=== PATIENT | male | born 1955 | race Caucasian/White ===

== ENCOUNTER → 2017-10-09 08:17 | Outpatient (CLI) | payer MEDICAID, SELFPAY ==
--- NOTE | 2017-10-09 08:26 | CT_ITS ---
STUDY: CT BRAIN WITHOUT CONTRAST REASON FOR EXAM: Male, 62 years old. CVA RADIATION DOSAGE (If Supplied By Facility): CTDIvol = ( 44.99 ) mGy, DLP = ( 779.24 ) mGycm TECHNIQUE: Transaxial CT imaging of the brain was performed without administration of intravenous contrast material. Individualized dose optimization techniques were used for this CT. COMPARISON: MRI dated 06/24/2016. Chest CT dated 06/23/2016. FINDINGS: There is a large left infarct involving the frontal, temporal and parietal lobes. This is new when compared with 06/23/2016 and appears subacute to chronic in nature. There is no acute infarct. There is no acute bleed. There are stable chronic ischemic and atrophic changes. The ventricles are normal in configuration. There is no hydrocephalus. The visualized paranasal sinuses are clear. The mastoid air cells are well aerated. There is no skull fracture. CT/Brain/Head without Contrast IMPRESSION: Large left sided infarct involving the frontal temporal and parietal lobes. This is new when compared with 06/23/2016 and appears subacute to chronic in nature. No acute infarct. No acute bleed. Stable chronic ischemic and atrophic changes. N.B. : , Covering Physician, confirmed on 10/10/2017 15:59:32 (ET) that the referring physician received the results and did not require a verbal consultation. Electronically Signed: Surya Aiken, at 18:23 EST Tel , Service support , N.B. : , Covering Physician, confirmed on 10/10/2017 15:59:32 (ET) that the referring physician received the results and did not require a verbal consultation.
== END ==
PROVIDERS: Family Provider Family Medicine; PCP Family Medicine
DX: I70.8 Atherosclerosis of other arteries (principal)
CPT/HCPCS: 70450

== ENCOUNTER → 2017-12-19 12:46 | Outpatient (CLI) | payer MEDICAID, SELFPAY ==
--- NOTE | 2017-12-19 12:52 | ADU_ITS ---
Reason For Study: PVD Right Velocities Left Velocities Common Femoral Artery, dist = 156 cm./sec. Common Femoral Artery, dist = 102 cm./sec. Supf Femoral Artery, prox = 384 cm./sec. Supf. Femoral Artery, prox = 60.5 cm./sec. Unable to demonstrate flow in mid and distal SFA.Supf. Femoral Artery, mid = 93.5 cm./sec. Profunda Femoral Artery = 203 cm./sec. Supf. Femoral Artery, dist = 38.5 cm./sec. Popliteal Artery, mid = 183 cm./sec. Profunda Femoral Artery = 116 cm./sec. Post. Tibial Artery, mid = 46.2 cm./sec. Popliteal Artery, mid = 33.0 cm./sec. Post. Tibial Artery, dist = 32.4 cm./sec. Post. Tibial Artery, prox = 32.2 cm./sec. Peroneal Artery,dist = 15.7 cm./sec. Post Tibial Artery, mid = 32.2 cm./sec. Unable to demonstrate flow in the DION. Post Tibial Artery, dist. = 33.8 cm./sec. Peroneal Artery, mid = 29.1 cm./sec. Peroneal Artery,dist. = 18.1 cm./sec. Ant.Tibial Artery, prox = 18.1 cm./sec. Ant Tibial Artery, mid = 16.5 cm./sec. Ant. Tibial Artery, distal = 19.6 cm./sec. Procedure The exam was diagnostic. Exam performed in department. Interpretation Summary Elevated velocities and flow turbulence are noted in the proximal right superficial femoral artery, indicative of hemodynamically significant stenosis. Flow could not be visualized in the right mid- and distal superficial femoral artery, suggesting arterial occlusion. The right popliteal artery and profunda femoris artery appear patent, with relatively normal flow. Diminished flow and monophasic waveforms are noted in the right posterior tibial artery and peroneal artery, consistent with [id number] arterial occlusive disease. Flow could not be demonstrated in the right anterior tibial artery, suggesting arterial occlusion. Markedly diminished flow and monophasic waveforms are noted at all levels in the left lower extremity, consistent with [id number] arterial occlusive disease, and suggestive of arterial inflow disease in the left lower extremity. Ordering Physician: Benita Rogers Referring Physician: DOCTOR, OUT OF [place]OWN Performed By: Teto Adams RVT
== END ==
PROVIDERS: Family Provider Family Medicine; PCP Family Medicine
DX: I73.9 Peripheral vascular disease, unspecified (principal)
CPT/HCPCS: 93925

== ENCOUNTER 2018-04-14 15:30 | Emergency (ER) | payer MEDICAID, SELFPAY ==
[2018-04-14 15:31] VITALS: BP 157/67; PULSE 52; RESP 16; TEMP 37; O2SAT 93; BMI 28.8
[2018-04-14 16:36] VITALS: BP 151/82; PULSE 53; RESP 20; O2SAT 93
--- NOTE | 2018-04-14 16:51 | ED.DCSUM_ITS ---
- ER Visit Summary Date of Service: 04/14/18 Chief Complaint: High blood pressure History of Present Illness: The patient is a [address] Denzel Mcdaniels and Dr. Olvera. reports that he had his amlodipine decreased from 10 mg to 5 mg a day. Today was his first day of this. His blood pressure is usually 127 systolic and today it has been 157 systolic. reports that really the only thing that is different than usual today otherwise that he seems more tired than usual. She does report that he has had a cough for a few weeks. No fever or difficulty breathing. does report that the cough is barky in nature. Patient is difficult to communicate with as he has a history of a stroke with residual expressive aphasia. Physical Examination: Vitals: Stable. Afebrile. General: Well-nourished and well-developed. Head: Normocephalic atraumatic. Neck: Supple, no lymphadenopathy. No JVD. Nontender. Cardiovascular: Regular rate and rhythm. No murmurs. Respiratory: No respiratory distress. Clear to auscultation bilaterally. Abdominal: Soft, nontender, nondistended, normal bowel sounds. No guarding, rebound, or peritoneal signs. Back: Nontender. Extremities: Nontender, no edema. Skin: Normal color, no rash. Psych: Normal affect. Test Results: , daughter, and patient refused labs, x-ray, or CT. Emergency Department Course and Treatment: Had a prolonged discussion with the patient and family that the likely etiology of his increased blood pressures to decreasing his amlodipine. They do not want any further evaluation of this undertaken. I also discussed with the patient and his the fact that he has stridor with his cough is indicative that he may have tracheal stenosis following his tracheostomy last year. Treatment Plan: Patient will be instructed to increase his amlodipine back up to his prior dose. Follow-up Dr. Olvera in 1-2 days if his blood pressure is not controlled. I have also suggested they follow-up with Dr. Ellis within 1- 2 weeks for possible bronchoscopy to check for tracheal stenosis. In the meantime he will be given a dose of dexamethasone p.o. Return to the emergency department for any worsening symptoms. Disposition: To home in improved and stable condition. Impression: 1. URI with stridor. 2. Hypertension. This note was generated with Dragon dictation software. It may contain incorrect words, spelling, and punctuation that were not noted in review of the chart prior to signing ED Disposition - Plan for ED Patient: Chief Complaint: Hypertension Instructions: How Your Lungs Work Referrals: Trip Ellis MD [STAFF PHYSICIAN] - 1-2 Weeks
[2018-04-14 17:24] VITALS: PULSE 54; RESP 20; O2SAT 93
== END 2018-04-14 17:25 | disposition home or self-care (01) ==
LOC: ED 17:09
PROVIDERS: Emergency Provider Emergency Medicine; Family Provider Family Medicine; PCP Family Medicine
DX: J06.9 Acute upper respiratory infection, unspecified (principal); R06.1 Stridor; I10 Essential (primary) hypertension; I63.9 Cerebral infarction, unspecified; I69.320 Aphasia following cerebral infarction; I25.10 Atherosclerotic heart disease of native coronary artery without angina pectoris; Z86.73 Personal history of transient ischemic attack (TIA), and cerebral infarction without residual deficits
CPT/HCPCS: 92507; 99283

== ENCOUNTER 2018-04-14 16:00 | Outpatient (RCR) | payer MEDICAID, SELFPAY ==
--- NOTE | 2017-07-03 18:30 | HP.PTEVAL_ITS ---
Patient's Visit Information ROBERTA ZEE is a 61 year old M referred to Physical Therapy by Conrad Arroyo with a diagnosis of CVA. Date of Evaluation: 07/01/17 Physical Therapist: Myron Gillette - Visit Plan Frequency: 2x /Week Duration: 4-6 Weeks Plan: Start with BLE strenthening/coordination. Add in gait retraining with either hemiwalking or stroke walker. Static standing with terminal knee ext and increased wt. shift to R side. Work on reducing flexor synergy with mobility to increase gait pattern. - Subjective Subjective: Pt. is here today for his initial evaluation with diagnosis of CVA. He is a plesant 61 y.o. male who suffered a 10/31/16 of L MCA after having coronary bypass the day prior. Pt. was on [facility] rehab unit for ~2 months where he was able to ambulate with hemiwalker ~150-200ft. with CGA. Pt. was DC from rehab to a residential facility where his spouse reports he declined. He ultimately was taken home after another 1-2 months. He lives at home with his spouse and receives 3-4 hours a day for in home nursing assistance. He has expressive aphasia limiting his ability to comunicate with PT, but was able to fill in gaps. is concerned about pt's limited mobility, difficulty transfers, limited walking and overall decline. Pt. denies pain, denies dizziness, and denies doouble vision. 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 Pt. and spouse report he is able to transfer with assistance. Spouse does bathing for pt. He does have R sided hemiplegia with RUE more effected than R LE. Pt. just recieved resting hand splint this date. Pt. and spouse are hopeful to increase overall mobility to increase independence in home and community. - Objective POSTURE: Pt. has slouched posture, fwrd shoulder, RUE flaccid at side, no sulcus sign noted. Pt. has increased wt. shift to R side with trunk correction. Pt. is able to sit without assistance. PALPATION: Pt. has no pain with palpation throughout bilateral LEs. Pt. does wear an AFO on RLE(rigid). Pt. has increased tone noted throughout RUE. NEUROLOGICAL: Pt. has decreased sensation throughout RLE, normal sensation to LLE. Pt. has decreased 1+DTR of achiles and patella on RLE. 2+ on LLE same tendons. Pt. is unable to rise on heels or toes. ROM: RLE- DF neutral, PF 54deg; knee- 0-10-120deg., R hip- flexion 120deg, abd 45, ext 6deg. LLE- ankle with in normal limits, knee 0-0-120deg. HIp with in normal limits- tight HS noted. MMT- RLE- ankle- PF 4/5, DF 2-/5; knee- ext 3 /5, flexion 3+/5; hip- 4/5, abd 4/5, ext 4-/5. LLE- ankle- DF 5/5, PF 5/5; knee - ext 4+/5, flexion 4+/5; hip- flexion 4/5, abd 4/5, ext 4/5. GAIT: Pt. requires use of AD to complete. Pt. ambulated 1x28' and 1x18' with kinza walker. Pt. has high levels of difficulty advancing RLE, he has limited heel strike an limited ability to maintain flat foot positioning in stance phases. Pt. required modA to complete throughout. SPECIAL TESTING: stage 4 LE on Chedoke- Huber stroke scale. 5 rep sit to stand test- with RU 45seg with CGA to maintain stability - Balance Scores Tinetti Balance Score: 5 Tinetti Gait Score: 3 Tinetti Balance & Gait Score: 8 - Goals Goal 1:: Pt. to be I with HEP. Goal Time Frame: 4-6 Weeks Goal 2:: Pt. to have increased BLE strength by 1/2 grade to increase functional mobility. Goal Time Frame: 4-6 Weeks Goal 3:: Pt. to complete all transfers with least restrictive device with GABRIELE allowing for increased independence in home. Goal Time Frame: 4-6 Weeks Goal 4:: Pt. to ambulate 200ft. with least restrictive device with JERRY allowing for increased safety in home and community. Goal Time Frame: 4-6 Weeks Goal 5:: Pt. to completed all bed mobility GABRIELE with out LOB allowing for increased mobility in home. Goal Time Frame: 4-6 Weeks Goal 6:: Pt. to have increased score on Tinetti to 14/28 indicating reduced risk for falls. Goal Time Frame: 4-6 Weeks - Rehabilitation Potential Physical Therapy Diagnosis: Pt. has signs and symptoms of general debility secondary to CVA. He has synergist motions of RLE with standing, flexion based. Pt. has difficulty with transfers, gait, and balance. He also has decreased BLE strength and coordination. He also presents with RUE weakness and expressive aphasia with OT and ST will be addressive respectively. He would benefit from PT to address above physicial limitations. Rehabilitation Potential: Fair - Anticipated Interventions Patient/Client Instruction: Educate patient on: Condition, Plan of Care, Risk Factors, Benefits of Fitness Program For the Purpose of:: To improve safety, To improve health and function, To foster healthy habits, To improve decision making, To facilitate caregiver knowledge, To improve self management, To prevent re-injury, To improve ability to perform tasks related to life management, To improve tolerance to ADL's Therapeutic Exercise to Include: Strength training, Power training, Endurance training, Balance training, Coordination, Agility training, Body mechanics, Postural training, Flexibilty training, Gait and locomotor training, Passive ROM , Active ROM, Dynamic Lumbar Stabilization Thank you for the opportunity to evaluate your patient. For Medicare and Medicare HMO plans, please review the plan of care and approve it. It will need to be FAXED BACK to us at [phone] for Medicare purposes. Please let me know if there are questions or concerns regarding this plan of care. Physician Signature: Date:
--- NOTE | 2017-07-08 17:48 | HP.SP.AD ---
History - History Date of Eval: 07/05/17 Date of Onset of Diagnosis: 10/31/16 Previous speech therapy: Yes Other Relevant Medical History/Diagnoses/Surgery: 10/30/16 the patient underwent coronary artery bypass graft at [facility]. 10/31/16 he suffered a left MCA distribution infarct complicated by respiratory failure. Hospitalization was prolonged requiring tracheostomy and PEG tube placement followed by LTAC placement. Therapies were initiated and the patient improved to transfer to inpatient rehab at [facility] on 12/21/16. His tracheostomy and PEG tube were subsequently removed and the pt was discharged to a halfway 02/22/17. He is now living at home with his . Smoking Status: Never smoker Hx Smoking: Yes Hx Tobacco Use: Yes - jun 2016 Hx Smoking Exposure: Yes - Pain Is pain an issue with your current prescribed condition?: No Patient Allergies - Allergies Allergies lisinopril Allergy (Verified 12/21/16 18:49) Unknown Objective Cog/Ling/Com - Test Administered Ghoknazpv-Jahjgtoywi-Dhcyhkfbtforj Assessment Administered: Yes Rfoyddyop-Twnirfavvg-Qlgzpchlsjliw Assessment: Cognitive Linguistic skills were evaluated using patient/family interview, skilled observation and informal evaluation through tasks completed by the patient. - Orientation Orientation: Person, Place - Identification Body parts/objects: Mild - Answer Yes/No Questions Simple: Moderate Complex: Severe - Follows Commands 1 Step: Moderate 2 Step: Severe Complex: Severe - Automatic Sequences Automatic Sequences: WFL, Mild - Repetition Words: WFL, Mild Sentences: Moderate - Naming Responsive naming: Moderate Naming in categories: Severe - Reading Comprehension Words: Moderate, Severe - Oral Reading Words: Moderate, Severe - Cognitive Linguistic Supervision/Saftey Awareness of deficits: Moderate Being left home alone: Moderate, Severe Managing medications: Severe Managing finances: Severe Cognitive Linguistic Comments - Comments Summary The patient presents with moderate-severe cognitive-linguistic deficits following October, CVA, characterized by severe expressive aphasia and mild-moderate receptive aphasia. The patient was able to complete automatic and phrase completion tasks with near independence, though confrontation naming was significantly impaired (0/3 independently). He did respond to initial phonemic cues and was able to imitate single words with some labial groping observed. Basic yes/no questions (0/4 indep) were impaired, with the patient typically responding yes to all questions. He was able to follow simple one-step commands in 1/5 trials independently, though he improves during less structured and routine activities. He was able to choose an item from a Fo2 in 5/7 trials. Plan - Recommendations Treatment Warranted: Yes - Frequency Frequency: 1-2x /Week Duration: 6 Months - Prognosis Prognosis: Good - Goals that are Established: Determination:: Goals will be added/modified as deemed necessary and appropriate. Therapy will be discontinued when results of re-evaluation indicate therapy is no longer needed or lack of progress has been documented. - Goal #1-5 Goal #1: The patient will express basic wants/needs via gestures, signs, visual supports, and/or AAC Prompts: Min Accuracy: 50% # Sessions: 3/4 Goal #2: The patient will answer simple yes/no questions via gestures, signs, visual supports, and/or AAC Prompts: Min Accuracy: 60% # Sessions: 3/4 Goal #3: The patient will follow non-routine single-step identification or kinesthetic directions Prompts: Min Accuracy: 75% # Sessions: 3/4 Goal #4: The patient will name common nouns via phrase completion, responsive speech, and/or confrontation Prompts: Mod Accuracy: 50% # Sessions: 3/4 Education - Patient has Indicated that the Following Identified Educational Needs: Hearing/Vision/Speech Impaired - Patient Instruction Patient Education: Diagnosis, Treatment Plan, Goals
--- NOTE | 2017-07-08 18:03 | HP.OTEVAL_ITS ---
Patient's Visit Information ROBERTA ZEE is a 61 year old M, referred to Occupational Therapy by Conrad Arroyo,, with a diagnosis of CVA. Date of Evaluation: 07/05/17 Occupational Therapist: Amaris Anderson - Subjective Subjective: Pt., Roberta, arrived with . present for evaluation. Roberta happy, pleasant, and motivated to be (I). helped fill gaps during session as Roberta present?s with expressive aphasia. He is able to say yes/no but answers are not always accurate. notes he can sign full country songs. The CVA occurred October 30, 2016. She noted that he went in for CABG the day prior, had CVA following day, was in [facility] at this time of CVA. He was eventually transferred to [facility] and then later [facility] prior to returning home with . Both noted he did not receive much therapy at [facility]. noted she is unsure of extent of therapy and noted they were trying to get him to use a/e feeding utensils for meal times. She is currently helping with all ADL/IADls at this time. Both noted R UE is a little worse than LE. - Objective Objective/Observation: Roberta is unable to actively move shoulder, elbow or wrist. He is able to tolerate passive movements to R UE and passive shoudler abduction to approximately 120 degrees and passive flexion to 100 degrees. He He is able to actively flex/ext fingers around MCP 20 degrees to initate movements needed for formation of composite fist for grasping. He exhibits increased apaxic movements when moving hand potentially from weakness. He is able to doff front opening melody with mod A but is max A to TD for all other ADl/ IADLs at this time. He presents with expressive aphasia but is able to follow 1- 2 step directions. - ROM Shoulder: R unable at this time L WFL Elbow: R unable at this time L WFL Forearm: R unable at this time L WFL Wrist: R unable at this time L WFL MP: R approximately 20 degrees flexion L WFL PIP: R approximately 10 degrees - Strength Crossing Supervisor: R unable at this time L 91 Lateral Pinch: R unable at this time L 22 Tripod Pinch: R unable at this time L 19 - Movement Ataxia: R hand when initating movements Movement Comments: R sides ataxic in hand when initating mvoements. Potentially it is related to weakness of R UE and doesn't limited movement but occurs as a result of and will continue to be monitored. - Cognitive Skills Follows Directions: Yes - 1 step and occasionally 2 step Oriented to (Check all that apply): Date Cognitive Comments: Roberta presents with expressive aphasia s/p CVA in October 2016 following CABG. - Stroke Specific Quality of Life Total SS-QOL Score: 21 - DASH-Disabilities of Arm, Shoulder& Hand DASH Sum: 145 - Goals Goal:: Pt., Roberta, to manage pain consisntely at 0-1/10 with splint and other compensations to maintain body posture 4/5 trials 80% of the time by d/c. Goal:: Roberta to be able to be (I) to form composite fist to manipulate small self -care objects 4/5 trials 80% of the time by d/c. Goal:: Roberta to be able to actively move R UE to complete self-care tasks 4/5 trials 80% of the time by d/c. Goal:: Roberta to be able to functionally manipulate self-care items with bilater hands to promote increased (I) and decreased need for assistance 4/5 trials 80% to promote returning to PLOF and decreaisng caregiver burden. - Rehabilitation General Assessment: Roberta presents with R side hemiplegia. He is unable to actively move R shoulder, elbow or wrist at this time. He has about 20 degrees of finger flex/extension. He is able to lightly form nonfunctional fist and extend fingers but is easily fatigued. He presents with increased apraxia movements with finger movements at this time. Shoulder palpated and no signs of subluxation are present at this time. He does have some pain with overhead passive movements. He is able to obtain about 100 degrees of passive shoulder flexion and approximately 120 degrees of passive shoulder adduction. He is able to follow one-two step cues and sequence taking jacket off without cues and min A for R UE. TD for bathing and LB dressing. He is mod A for UB dressing at this time. He is able to don deodorant with mod I but otherwise requires assistance for all ADL/IADLs at this time. Rehabilitation Potential: Good - Anticipated Interventions Anticipated Interventions: A/AAROM/PROM, Strengthening, Edema Control, Sensory Retraining, Modalities, Orthoses, Joint Protection/Energy Conservation, Ergonomic Education, Fine Motor Coord/Angelito, Neuro Reeducation, Visual/ Perceptual Skills, Cognitive Skills, ADL Training, Education re assistive Equipment, Caregiver Training, Home Program - Visit Plan Frequency: 2-3x /Week Duration: 4-6 Weeks General Plan: Roberta to see OT for increased ROM and strength of R hemiplegia UE. OT to provide NDT, AAROM, modalities as needed, and HEP to promote increasing function. He is to be seen 2-3x per week with OT preference being 3x per week to promote increase function in R UE for first 4-6 weeks. If no function return frequency will be decreased. We will potential check into e-stim unit for home with insurance coverage permits to address additional therapy at home. TEXT: Thank you for the opportunity to evaluate your patient. For Medicare and Medicare HMO plans, please review the plan of care and approve it. It will need to be FAXED BACK to us at [phone] for Medicare purposes. Please let me know if there are questions or concerns regarding this plan of care. Physician Signature: Date:
--- NOTE | 2017-07-10 18:25 | HP.OTEVAL ---
Patient's Visit Information ROBERTA ZEE is a 61 year old M, referred to Occupational Therapy by Conrad Arroyo,, with a diagnosis of CVA. Date of Evaluation: 07/05/17 Occupational Therapist: Amaris Anderson - Subjective Subjective: Pt., Roberta, arrived with . present for evaluation. Roberta happy, pleasant, and motivated to be (I). helped fill gaps during session as Roberta presents with expressive aphasia. He is able to say yes/no but answers are not always accurate. notes he can sign full country songs. The CVA occurred October 30, 2016. She noted that he went in for CABG the day prior, had CVA following day, was in [facility] at this time of CVA. He was eventually transferred to [facility] [place] and then later [facility] prior to returning home with . Both noted he did not receive much therapy at [facility]. noted she is unsure of extent of therapy and noted they were trying to get him to use a/e feeding utensils for meal times. She is currently helping with all ADL/IADls at this time. Both noted R UE is a little worse than LE. - Objective Objective/Observation: Nanci is unable to actively move shoulder, elbow or wrist. He is able to tolerate passive movements to R UE and passive shoudler abduction to approximately 120 degrees and passive flexion to 100 degrees. He He is able to actively flex/ext fingers around MCP 20 degrees to initate movements needed for formation of composite fist for grasping. He exhibits increased apaxic movements when moving hand potentially from weakness. He is able to doff front opening melody with mod A but ismax A to TD for all other ADl/IADLs at this time. He presents with expressive aphasia but is able to follow 1-2 step directions. - ROM Shoulder: R L WFL Elbow: R L WFL Forearm: R L WFL Wrist: R L WFL MP: R approximately 20 degrees flexion L WFL PIP: R approximately 10 degrees - Strength Yeast Stacker: R unable L 91 Lateral Pinch: R unable L 22 Tripod Pinch: R unable L 19 - Movement Ataxia: R hand when initating movements Movement Comments: R sides ataxic in hand when initating mvoements. Potentially it is related to weakness of R UE and doesn't limited movement but occurs as a result of and will continue to be monitored. - Cognitive Skills Follows Directions: Yes - 1 step and occasionally 2 step Oriented to (Check all that apply): Date Cognitive Comments: Roberta presents with expressive aphasia s/p CVA in October 2016 following CABG. - Stroke Specific Quality of Life Total SS-QOL Score: 21 - DASH-Disabilities of Arm, Shoulder& Hand DASH Sum: 145 - Goals Goal:: Roberta to gain back functional stregth of R UE to promote alignment of shoulder and increase ability to complete self-care and IADls 4/5 trials 80% of the time to promote QOL and decrease need for assisatnce by d/c. Goal:: Pt. to increased ROM to be able to actively move RUE WFL to complete ADl/IADls to improve QOL and decrease caregiver burden by time of d/c. Goal:: Pt., Roberta, to manage pain consistently at 0-1/10 with splint and other compensations to maintain body posture 4/5 trials 80% of the time by d/c. Goal:: Roberta to be able to be (I) to form composite fist to manipulate small self-care objects 4/5 trials 80% of the time by d/c. Goal:: Roberta to be mod I to be able to complete all toileting tasks with use of a/e, a/d, and DME as needed 4/5 trials 80% of the time to promote (i) and decrease need for assistance by d/c. Roberta to be S/U to german/doff front opening garment and fastener with use of a/e as needed 4/5 trials 80% of the time to promote (I) and decrease cargiver burden by time of d/c. Goal:: Roberta to be mod I to transfer on/off commode with use of a/e and a/d as needed 4/5 trials 80% of the time to promote increased (I) and decreased need for assistance by d/c. Goal:: Roberta to be able to don/doff LB dressing with use of R UE/ a/e as needed 4/5 trials 80% of the time to promot eincreasing (I) and decreasing need for assistance by time of d/c. Goal:: Roberta to be able to bring loaded spoon to mouth with minimal spills and a/e as needed to promote (I) in self-feeding 4/5 trials 80% of the time by d/c. Goal:: Roberta to be able to functionally manipulate self-care items with bilateral hands to promote increased (I) and decreased need for assistance 4/5 trials 80% to promote returning to PLOF and decreasing caregiver burden. Goal:: Roberta to be mod I to remember and complete HEP for R UE to promote regain ROM of R UE and hand 4/5 trials 80% of the time by d/c. - Rehabilitation General Assessment: Roberta presents with R side hemiplegia. He is unable to actively move R shoulder, elbow or wrist at this time. He has about 20 degrees of finger flex/extension. He is able to lightly form nonfunctional fist and extend fingers but is easily fatigued. He presents with increased apraxia movements with finger movements at this time. Shoulder palpated and no signs of subluxation are present at this time. He does have some pain with overhead passive movements. He is able to obtain about 100 degrees of passive shoulder flexion and approximately 120 degrees of passive shoulder adduction. He is able to follow one-two step cues and sequence taking jacket off without cues and min A for R UE. TD for bathing and LB dressing. He is mod A for UB dressing at this time. He is able to don deodorant with mod I but otherwise requires assistance for all ADL/IADLs at this time. Rehabilitation Potential: Good - Anticipated Interventions Anticipated Interventions: A/AAROM/PROM, Strengthening, Edema Control, Massage, Triggerpoint Release, Sensory Retraining, Modalities, Orthoses, Joint Protection/Energy Conservation, Ergonomic Education, Fine Motor Coord/Angelito, Neuro Reeducation, Visual/Perceptual Skills, Cognitive Skills, ADL Training, Education re assistive Equipment, Caregiver Training, Home Program - Visit Plan Frequency: 2-3x /Week Duration: 4-6 Weeks General Plan: Roberta to see OT for increased ROM and strength of R hemiplegia UE. OT to provide NDT, AAROM, modalities as needed, and HEP to promote increasing function. He is to be seen 2-3x per week with OT preference being 3x per week to promote increase function in R UE for first 4-6 weeks. If no function return frequency will be decreased. We will potential check into [employer] unit for home with insurance coverage permits to address additional therapy at home. TEXT: Thank you for the opportunity to evaluate your patient. For Medicare and Medicare HMO plans, please review the plan of care and approve it. It will need to be FAXED BACK to us at [phone] for Medicare purposes. Please let me know if there are questions or concerns regarding this plan of care. Physician Signature: Date:
--- NOTE | 2017-09-04 18:24 | HP.PTREVAL ---
Conrad Arroyo, It has been my pleasure to treat ROBERTA ZEE over the last 8 visits for CVA. Please see the progress note below for an update on the physical therapy plan of care! Subjective: Pt. spouse reports pt. is doing better, but is conserned about pt. getting a kinza walker and an articulating AFO. She had talked about this with an orthotistic and felt this may be helpful. No falls reported since starting PT. Objective/Function: Pt. contniues to have presence of clonus with quick stretching of R G/S complex. GAIT- Pt. ambulated 98ft. with kinza walker and light CGA. Pt. continues to have heavy lean to L side during pain. Transfers- pt. is able to complete with CGA to SBA with kinza walker, regresses with fatigue. He continues to have increased difficulty with getting his R foot flat on floor prior to txs, but has improve. Decreased flexor synergy noted. His overall endurance has progressed as well. Plan Plan: Pt. would benefit from continued care to progress gait, stability with kinza walker, transfer porgression and exercises to reduce RLE flexor syngery. Pt. would benefit from continued PT x2 per week for 4 weeks. He would also benefit from getting a kinza walker a script writen would be great as he has a stroke walker at home and has to return to assisted soon. I am not sold on needing an articulating AFO, but I do not see a problem in getting one. VITALS: 127/84 BP, HR 55, SpO2 98% pre treatment. Goals Goal 1:: Pt. to be I with HEP. Goal Time Frame: 4-6 Weeks Goal Progress: Progressing Goal 2:: Pt. to have increased BLE strength by 1/2 grade to increase functional mobility. Goal Time Frame: 4-6 Weeks Goal Progress: Progressing Goal 3:: Pt. to complete all transfers with least restrictive device with GABRIELE allowing for increased independence in home. Goal Time Frame: 4-6 Weeks Goal Progress: Progressing Goal 4:: Pt. to ambulate 200ft. with least restrictive device with JERRY allowing for increased safety in home and community. Goal Time Frame: 4-6 Weeks Goal Progress: Progressing Goal 5:: Pt. to completed all bed mobility GABRIELE with out LOB allowing for increased mobility in home. Goal Time Frame: 4-6 Weeks Goal Progress: Progressing Goal 6:: Pt. to have increased score on Tinetti to 14/28 indicating reduced risk for falls. Goal Time Frame: 4-6 Weeks Goal Progress: Progressing Anticipated Interventions Patient/Client Instruction: Educate patient on: Condition, Plan of Care, Risk Factors, Benefits of Fitness Program For the Purpose of:: To improve safety, To improve health and function, To foster healthy habits, To improve decision making, To facilitate caregiver knowledge, To improve self management, To prevent re-injury, To improve ability to perform tasks related to life management, To improve tolerance to ADL's Therapeutic Exercise to Include: Strength training, Power training, Endurance training, Balance training, Coordination, Agility training, Body mechanics, Postural training, Flexibilty training, Gait and locomotor training, Passive ROM, Active ROM, Dynamic Lumbar Stabilization Please do not hesitate to contact me at [phone] by phone or if you have questions or concerns regarding this new plan of care! Sincerely, Myron Gillette
--- NOTE | 2017-10-30 17:19 | HP.OTREVAL ---
Conrad Arroyo, It has been my pleasure to treat ROBERTA ZEE over the last 17 visits for CVA. Please see the progress note below for an update on the occupational therapy plan of care! Subjective: Pt. arrived with following ST appointment. Completed reassessment on this date. Objective/Function: Re-evaluation occured on this date. Roberta is progressing at this time. He has activation of upper trapezius muscle with palpation for scapular elevation and depression. MMT of shoulder for scapular elevation 1/5 at this time. Slight ROM noted which is progress from inital evaluation. He is starting to progress with elbow flexion on R affected side. He is able to complete AROM with increased compensations through lateral leaning in opposite direction and holding of breath. Elbow flexion approximately 10-74 degrees at this time with compensations noted. MMT of biceps 3-/5 as able to move against gravity for AROM with increased compensations noted. Wrist ROM and finger ROM limited at this time. Roberta at times has some spontaneous finger flexion per report. Very minimal movement of PIPs completed on this date. He continues to have decreased propriopcetion and body awarnese of R UE. Monofilment touch test completed for sensation testing. R hand in red zone which indicates significant sensory deficits with need for vision to compensate. L hand is WNL and L digits 2-5, and then thumb scored as follows: 2.83 (normal), 3.61, 2.83, 2.83, 2.83. Sensation is a later skills to normally come back after CVA. But decreased senation of R UE leads to decreased body awarness due to lack of propriocetion input of R UE and he would benefit from further therapy. CGA for doffing coat . notes TD for pants buttons at this time but able to complete toilet tx and oileting (I). Needs assistance for clothing manage post toileting and pants button if wear button pants. Notes increased need for help with bathing LE and back. Per report complete tub transfer mod I. Roberta able to feed himself with L hand. OT to continue to progress with RUE functioning as well as L handed techniques to promote increased (I) for ADL/IAdls. Plan Frequency: 2x /Week Duration: 6 Weeks Plan: continue POC for 2x weekly for 6 weeks. Pt. has 30 visit max. Appears to have completed 13 post first of the year and have 6 more appointments schedule through end of November. The 6 appointments through november are to be included in are this POC. Do not exceed 30 visits. He is to be schedile last 2-3 appointments with OT. FES to be used to promote scapular elevation and depression to help decreased further risk of subluxation of R shoulder, elbow flexion for increased ability to complete self-feeding with R affected hand, as well as wrist flex/ext to promote increasing ROM and movement of R hand for fx tasks such as ADL/IADls. OT to further look into see is FEs unit and to [facility] if [facility] FEs or bioness unit for home use. Goals - Goals Goal:: Roberta to gain back functional stregth of R UE to promote alignment of shoulder and increase ability to complete self-care and IADls 4/5 trials 80% of the time to promote QOL and decrease need for assisatnce by d/c. Goal:: Pt. to increased ROM to be able to actively move RUE WFL to complete ADl/IADls to improve QOL and decrease caregiver burden by time of d/c. Goal:: Pt., Roberta, to manage pain consistently at 0-1/10 with splint and other compensations to maintain body posture 4/5 trials 80% of the time by d/c. Goal:: Roberta to be able to be (I) to form composite fist to manipulate small self-care objects 4/5 trials 80% of the time by d/c. Goal:: Roberta to be mod I to be able to complete all toileting tasks with use of a/e, a/d, and DME as needed 4/5 trials 80% of the time to promote (i) and decrease need for assistance by d/c. Roberta to be S/U to german/doff front opening garment and fastener with use of a/e as needed 4/5 trials 80% of the time to promote (I) and decrease cargiver burden by time of d/c. Goal:: Roberta to be mod I to transfer on/off commode with use of a/e and a/d as needed 4/5 trials 80% of the time to promote increased (I) and decreased need for assistance by d/c. Goal:: Roberta to be able to don/doff LB dressing with use of R UE/ a/e as needed 4/5 trials 80% of the time to promot eincreasing (I) and decreasing need for assistance by time of d/c. Goal:: Roberta to be able to bring loaded spoon to mouth with minimal spills and a/e as needed to promote (I) in self-feeding 4/5 trials 80% of the time by d/c. Goal:: Roberta to be able to functionally manipulate self-care items with bilateral hands to promote increased (I) and decreased need for assistance 4/5 trials 80% to promote returning to PLOF and decreasing caregiver burden. Goal:: Roberta to be mod I to remember and complete HEP for R UE to promote regain ROM of R UE and hand 4/5 trials 80% of the time by d/c. Anticipated Interventions Anticipated Interventions: A/AAROM/PROM, Strengthening, Edema Control, Massage, Triggerpoint Release, Sensory Retraining, Modalities, Orthoses, Joint Protection/Energy Conservation, Ergonomic Education, Fine Motor Coord/Angelito, Neuro Reeducation, Visual/Perceptual Skills, Cognitive Skills, ADL Training, Education re assistive Equipment, Caregiver Training, Home Program Please do not hesitate to contact me at [phone] by phone or if you have questions or concerns regarding this new plan of care! Sincerely, Amaris Anderson
--- NOTE | 2017-10-30 17:24 | OTREVAL_ITS ---
Conrad Arroyo, It has been my pleasure to treat ROBERTA ZEE over the last 17 visits for CVA. Please see the progress note below for an update on the occupational therapy plan of care! Subjective: Pt. arrived with following ST appointment. Completed reassessment on this date. Objective/Function: Re-evaluation occured on this date. Roberta is progressing at this time. He has activation of upper trapezius muscle with palpation for scapular elevation and depression. MMT of shoulder for scapular elevation 1/5 at this time. Slight ROM noted which is progress from inital evaluation. He is starting to progress with elbow flexion on R affected side. He is able to complete AROM with increased compensations through lateral leaning in opposite direction and holding of breath. Elbow flexion approximately 10-74 degrees at this time with compensations noted. MMT of biceps 3-/5 as able to move against gravity for AROM with increased compensations noted. Wrist ROM and finger ROM limited at this time. Roberta at times has some spontaneous finger flexion per report. Very minimal movement of PIPs completed on this date. He continues to have decreased propriopcetion and body awarnese of R UE. Monofilment touch test completed for sensation testing. R hand in red zone which indicates significant sensory deficits with need for vision to compensate. L hand is WNL and L digits 2-5, and then thumb scored as follows: 2.83 (normal), 3.61, 2.83, 2.83, 2.83. Sensation is a later skills to normally come back after CVA. But decreased senation of R UE leads to decreased body awarness due to lack of propriocetion input of R UE and he would benefit from further therapy. CGA for doffing coat . notes TD for pants buttons at this time but able to complete toilet tx and oileting (I). Needs assistance for clothing manage post toileting and pants button if wear button pants. Notes increased need for help with bathing LE and back. Per report complete tub transfer mod I. Roberta able to feed himself with L hand. OT to continue to progress with RUE functioning as well as L handed techniques to promote increased (I) for ADL/ IAdls. Plan Frequency: 2x /Week Duration: 6 Weeks Plan: continue POC for 2x weekly for 6 weeks. Pt. has 30 visit max. Appears to have completed 13 post first of the year and have 6 more appointments schedule through end of November. The 6 appointments through november are to be included in are this POC. Do not exceed 30 visits. He is to be schedile last 2-3 appointments with OT. FES to be used to promote scapular elevation and depression to help decreased further risk of subluxation of R shoulder, elbow flexion for increased ability to complete self-feeding with R affected hand, as well as wrist flex/ext to promote increasing ROM and movement of R hand for fx tasks such as ADL/IADls. OT to further look into see is FEs unit and to [facility]aine if [facility] can [facility] FEs or bioness unit for home use. Goals - Goals Goal:: Roberta to gain back functional stregth of R UE to promote alignment of shoulder and increase ability to complete self-care and IADls 4/5 trials 80% of the time to promote QOL and decrease need for assisatnce by d/c. Goal:: Pt. to increased ROM to be able to actively move RUE WFL to complete ADl/ IADls to improve QOL and decrease caregiver burden by time of d/c. Goal:: Pt., Roberta, to manage pain consistently at 0-1/10 with splint and other compensations to maintain body posture 4/5 trials 80% of the time by d/c. Goal:: Roberta to be able to be (I) to form composite fist to manipulate small self -care objects 4/5 trials 80% of the time by d/c. Goal:: Roberta to be mod I to be able to complete all toileting tasks with use of a /e, a/d, and DME as needed 4/5 trials 80% of the time to promote (i) and decrease need for assistance by d/c. Roberta to be S/U to german/doff front opening garment and fastener with use of a/e as needed 4/5 trials 80% of the time to promote (I) and decrease cargiver burden by time of d/c. Goal:: Roberta to be mod I to transfer on/off commode with use of a/e and a/d as needed 4/5 trials 80% of the time to promote increased (I) and decreased need for assistance by d/c. Goal:: Roberta to be able to don/doff LB dressing with use of R UE/ a/e as needed 4 /5 trials 80% of the time to promot eincreasing (I) and decreasing need for assistance by time of d/c. Goal:: Roberta to be able to bring loaded spoon to mouth with minimal spills and a/ e as needed to promote (I) in self-feeding 4/5 trials 80% of the time by d/c. Goal:: Roberta to be able to functionally manipulate self-care items with bilateral hands to promote increased (I) and decreased need for assistance 4/5 trials 80% to promote returning to PLOF and decreasing caregiver burden. Goal:: Roberta to be mod I to remember and complete HEP for R UE to promote regain ROM of R UE and hand 4/5 trials 80% of the time by d/c. Anticipated Interventions Anticipated Interventions: A/AAROM/PROM, Strengthening, Edema Control, Massage, Triggerpoint Release, Sensory Retraining, Modalities, Orthoses, Joint Protection /Energy Conservation, Ergonomic Education, Fine Motor Coord/Angelito, Neuro Reeducation, Visual/Perceptual Skills, Cognitive Skills, ADL Training, Education re assistive Equipment, Caregiver Training, Home Program Please do not hesitate to contact me at [phone] by phone or Fax: if you have questions or concerns regarding this new plan of care! Sincerely, Amaris Anderson
--- NOTE | 2018-01-13 16:00 | DT_ITS ---
This patient was seen during an EMR downtime January 06, 2018 - January 13, 2018. This patient may have a combination of paper and electronic documentation or all paper documentation. All documentation is viewable within the e-chart portion of [employer] for each patient visit.
--- NOTE | 2018-01-21 07:40 | OTREVAL_ITS ---
Conrad Arroyo, It has been my pleasure to treat ROBERTA ZEE over the last 29 visits for CVA. Please see the progress note below for an update on the occupational therapy plan of care! Subjective: Arrived with . noted no new changes. She noted she has been using moist heat on hand off and on when notices increased tone. She explained he is completing about half of HEP. noted she feels he started at 10% and is back to about 70%. Notes still very limited ROM and strength in R UE. Objective/Function: Reassessment completed on this date. Roberta is able to doff front opening garment with mod I which is progress from initial evaluation and re-eval. ROM assessment completed and mobility of R UE is still limited at this time. He is able to complete PROM of R shoulder for flexion from approximately 0 -110-120 degrees. He is completing active elbow flexion with use of flexor tone and increased compensations e.g. noted of holding breath and L lateral leaning. ROM of active flexion while trying to minimize compensations is 0-59 degrees. He is unable to actively extend elbow. His PROM of wrist flexion of R hand is 0- 36, and ext. PROM R 0-21. He does not have active wrist movements at this time. Fingers have approximately 10 degrees of movement for flexion only no active extension. He is presenting with increased flexor tone of thenar eminence causing forces R thumb opposition and tremors. Sensation appears to be improving but limited communication makes full understanding of sensation difficult. Appears sensation is being dispersed through hands between sensations of 3.22-4.31; L hand is normal at 2.83, and L ROM and L UE strength is WNL at this time. Sensation is a later skills to normally come back after CVA. Decreased sensation of R UE leads to decreased body awareness due to lack of proprioception input of R UE increased safety concerns due to decreased body awareness. He would benefit from further therapy. Progression is slow but consistent. Some decreased accuracy with monofilament test for sensation observed on date. Will continue POC at this time. Plan Frequency: 2x /Week Duration: 12 Plan: continue POC. Would benefit from 2x weekly hour long visits for the next 12 weeks. Once completing the end of his 30 limit will resubmit for additional appointments. consistently educated that they cannot exceed 30 total visits until resubmission completed. Progress is slow but he has made improvements. Will continue to try and address working on increasing fx movements. Looking into FES type unit for at home but will be part of d/c planning. If getting FES type unit he and will work one on one with OT to promote safety and compliance. will need to be trained in FES unit as cognition of patient is not appropriate at this time to complete FES unit (i). Will completed 4-8 sessions working FES unit prior to being send home (i). Looking for FES units that are preset and she will not need to set parameters. Will continue to research if unit is available that would meet Pt. needs but be safe to complete by at home. Goals - Goals Goal:: Roberta to gain back functional stregth of R UE to promote alignment of shoulder and increase ability to complete self-care and IADls 4/5 trials 80% of the time to promote QOL and decrease need for assisatnce by d/c. Goal:: Pt. to increased ROM to be able to actively move RUE WFL to complete ADl/ IADls to improve QOL and decrease caregiver burden by time of d/c. Goal:: Pt., Roberta, to manage pain consistently at 0-1/10 with splint and other compensations to maintain body posture 4/5 trials 80% of the time by d/c. Goal:: Roberta to be able to be (I) to form composite fist to manipulate small self -care objects 4/5 trials 80% of the time by d/c. Goal:: Roberta to be mod I to be able to complete all toileting tasks with use of a /e, a/d, and DME as needed 4/5 trials 80% of the time to promote (i) and decrease need for assistance by d/c. Roberta to be S/U to german/doff front opening garment and fastener with use of a/e as needed 4/5 trials 80% of the time to promote (I) and decrease cargiver burden by time of d/c. Goal:: Roberta to be mod I to transfer on/off commode with use of a/e and a/d as needed 4/5 trials 80% of the time to promote increased (I) and decreased need for assistance by d/c. Goal:: Roberta to be able to don/doff LB dressing with use of R UE/ a/e as needed 4 /5 trials 80% of the time to promot eincreasing (I) and decreasing need for assistance by time of d/c. Goal:: Roberta to be able to bring loaded spoon to mouth with minimal spills and a/ e as needed to promote (I) in self-feeding 4/5 trials 80% of the time by d/c. Goal:: Roberta to be able to functionally manipulate self-care items with bilateral hands to promote increased (I) and decreased need for assistance 4/5 trials 80% to promote returning to PLOF and decreasing caregiver burden. Goal:: Roberta to be mod I to remember and complete HEP for R UE to promote regain ROM of R UE and hand 4/5 trials 80% of the time by d/c. Anticipated Interventions Anticipated Interventions: A/AAROM/PROM, Strengthening, Edema Control, Massage, Triggerpoint Release, Sensory Retraining, Modalities, Orthoses, Joint Protection /Energy Conservation, Ergonomic Education, Fine Motor Coord/Angelito, Neuro Reeducation, Visual/Perceptual Skills, Cognitive Skills, ADL Training, Education re assistive Equipment, Caregiver Training, Home Program Please do not hesitate to contact me at [phone] by phone or Fax: if you have questions or concerns regarding this new plan of care! Sincerely, Amaris Anderson
--- NOTE | 2018-01-28 09:41 | HP.PTREVAL_ITS ---
Conrad Arroyo, It has been my pleasure to treat ROBERTA ZEE over the last 28 visits for CVA. Please see the progress note below for an update on the physical therapy plan of care! Subjective: Pt. spouse reports that he is having increased difficulty with foot clearance, but is not wearing his AFO at home due to he does not like it. I talked to them about safety, she reports I won't make him wear it if he does not like it. Family and patient instructed to increase R hip flexion to assist with foot clearance. Objective/Function: GAIT- 265' with hemiwalking with SUP to GABRIELE. Pt. requires increased VCing for proper patterns. Pt. continues to lean to L side on AD, but is stable throughout. Pt. reports fatigue as limiting factor with gait. Bed mobility- GABRIELE without use of HR. Txs- GABRIELE with use of hemiwalker- occassional VCing for proper RLE positioning. MMT- LLE- ankle 5/5 throughout; knee- 5/5 throughout; hip- flexion 5-/5, abd 5-/5, ext 5-/5. RLE- ankle trace; knee- flexion 5/5, flexion 4/5; hip- flexion 4/5, abd 4/5, ext 4/5. Plan Plan: Cont. with POC x2 per week for 4 more weeks. Pt. and family would like me to request more visits from insurance. I talked with them that I will re assess pt. near end of visits and we can make a decision at that point in time. Goals Goal 1:: Pt. to be I with HEP. Goal Time Frame: 4-6 Weeks Goal Progress: Goal Met Goal 2:: Pt. to have increased BLE strength by 1/2 grade to increase functional mobility. Goal Time Frame: 4-6 Weeks Goal Progress: Progressing Goal 3:: Pt. to complete all transfers with least restrictive device with GABRIELE allowing for increased independence in home. Goal Time Frame: 4-6 Weeks Goal Progress: Goal Met Goal 4:: Pt. to ambulate 200ft. with least restrictive device with JERRY allowing for increased safety in home and community. NEW GOAL: Pt. to ambulate 300+ft. allowing for increased community mobility with hemiwalker and GABRIELE. Goal Time Frame: 4-6 Weeks Goal Progress: Progressing Goal 5:: Pt. to completed all bed mobility GABRIELE with out LOB allowing for increased mobility in home. Goal Time Frame: 4-6 Weeks Goal Progress: Goal Met Goal 6:: Pt. to have increased score on Tinetti to 14/28 indicating reduced risk for falls. Goal Time Frame: 4-6 Weeks Goal Progress: Progressing Anticipated Interventions Patient/Client Instruction: Educate patient on: Condition, Plan of Care, Risk Factors, Benefits of Fitness Program For the Purpose of:: To improve safety, To improve health and function, To foster healthy habits, To improve decision making, To facilitate caregiver knowledge, To improve self management, To prevent re-injury, To improve ability to perform tasks related to life management, To improve tolerance to ADL's Therapeutic Exercise to Include: Strength training, Power training, Endurance training, Balance training, Coordination, Agility training, Body mechanics, Postural training, Flexibilty training, Gait and locomotor training, Passive ROM , Active ROM, Dynamic Lumbar Stabilization Please do not hesitate to contact me at [phone] by phone or Fax: if you have questions or concerns regarding this new plan of care! Sincerely, Myron Gillette
--- NOTE | 2018-03-05 18:05 | OTREVAL_ITS ---
Conrad Arroyo, It has been my pleasure to treat ROBERTA ZEE over the last 33 visits for CVA. Please see the progress note below for an update on the occupational therapy plan of care! Subjective: Arrived with who was present during session. 70% improvement. Objective/Function: Completed additional measurements on this date. Roberta is 62 y /o male who had medically complicated recovery post CVA. Roberta went into CABG about a year ago. He had CVA while in operation. Roberta was sent to LTAC but recovery and medical stability were challenging during that time as per report. Roberta has been seen in outpatient for a total of about 33 visits between 2017 and 2018 calendar years. Progress has been slow, but he has continued to improve with therapy. Shoulder mobility is limited at this time. He can passively tolerate about 0-110 degrees of passive flexion, o-100 of passive adduction, and is more sensitive with ER and IR rotations. He at times has some increased scapular movements with ability to complete minimal active scapular elevation and depression but movements are not consistent at this time. Most recently Roberta has shown a positive decrease in some of the tone throughout bicep and triceps yet tone between appointments remains variable. He is able to actively move R elbow to flexion. ROM for active elbow flexion is 0-93 degrees. Compensations of holding breath and lateral leaning are still noted but leaning has decreased and he can self-correct with cues. Holding breath remains a compensation as muscles are weak and movement is labored. Bicep MMT grade is -3/ 5. Up until this time he has been up unable to extend elbow from flexion, and elbow is held at end flexed positioning due to flexor tone until passively being moved back to extension. However, very recently flexor tone has decreased and Roberta is now able to move through active elbow flexion (compensations noted) and when relaxing arm drops back to elbow extension. Previously tricep MMT was 0 /5 with no movement palpated. He is now 1/5 and trace elements of movement palpated but no active movement is completed at this time. This is progress as this shows signs of increased strengthening of tendon and muscles needed to complete tricep extension. Tricep activation and elbow ROM is need for self- care tasks such as grooming and self-feeding and need to continue to be addressed for Roberta?s QOL. Roberta has also shown signs of progress with wrist ROM of R affected hand. He previously was unable to move wrist from neutral or from flexed position. Most recently Roberta, with compensations of holding breath, has showed signs of movement for wrist extension from flexed position of 53-30 degrees. This indicated further MMT score of -2/5 for MMT in extension which was previously 0/5 or no active movement. Roberta is able to passively move wrist through R flexion o-85, and ext of 0-29. Extensor tone continues to be limiting at this time but previously both extensor and flexor tone limited all movement. Progression with tone management has increased and helped progress ROM. When tone is decreased, and wrist is placed in flexion he is able to complete IF extension through active movement. R IF when wrist is place in 60 degrees flexion is -51-23 increase he is able to move is more gravity eliminated plane. This is progress and previously no extension was observable with or without gravity in R hand. Extensor tone when wrist is in neutral still limits extension and no active extension is noted when in neutral. Strengthening is progressing but still very weak and limited at this time. Sensation is also progressing, but dispersion patterns are not being perceived with correct location of input. Appears sensation is being dispersed through hands between sensations of 3.22-4.56; L hand is normal at 2.83, Roberta is able to doff all closes per report and can doff coat in therapy sessions. He is having increased difficulty with one handed toilet hygiene and further instruction needed at this time. Roberta has cognitive deficits due to CVA. ST is addressing, and OT helping to carryover. Roberta continues to have difficulty with comprehensive and planning of tasks. HE completed exercises and self-care better when showed and guided through tasks. Roberta has made increased progress with tone management. With continued therapy additional management can be put in place for extensor tone management and promote the potential for continued ROM to return. Plan Frequency: 2-3x /Week Duration: 3-6 months Plan: Continue POC. Roberta would beenfit from 2-3x weekly appointments for the next 3-6 months to promote increased fx of R dominant and affected hand. He is scheduled through 03/17/18 and at the completion of that appointment further therapy will be resubmitted. POC will be determined based on number of apporved therapy visits. He has progressed and to further gain back function further therapy is needed. Goals - Goals Goal:: Roberta to gain back functional stregth of R UE to promote alignment of shoulder and increase ability to complete self-care and IADls 4/5 trials 80% of the time to promote QOL and decrease need for assisatnce by d/c. Goal:: Pt. to increased ROM to be able to actively move RUE WFL to complete ADl/ IADls to improve QOL and decrease caregiver burden by time of d/c. Goal:: Pt., Roberta, to manage pain consistently at 0-1/10 with splint and other compensations to maintain body posture 4/5 trials 80% of the time by d/c. Goal:: Roberta to be able to be (I) to form composite fist to manipulate small self -care objects 4/5 trials 80% of the time by d/c. Goal:: Roberta to be mod I to be able to complete all toileting tasks with use of a /e, a/d, and DME as needed 4/5 trials 80% of the time to promote (i) and decrease need for assistance by d/c. Roberta to be S/U to german/doff front opening garment and fastener with use of a/e as needed 4/5 trials 80% of the time to promote (I) and decrease cargiver burden by time of d/c. Goal:: Roberta to be mod I to transfer on/off commode with use of a/e and a/d as needed 4/5 trials 80% of the time to promote increased (I) and decreased need for assistance by d/c. Goal:: Roberta to be able to don/doff LB dressing with use of R UE/ a/e as needed 4 /5 trials 80% of the time to promot eincreasing (I) and decreasing need for assistance by time of d/c. Goal:: Roberta to be able to bring loaded spoon to mouth with minimal spills and a/ e as needed to promote (I) in self-feeding 4/5 trials 80% of the time by d/c. Goal:: Roberta to be able to functionally manipulate self-care items with bilateral hands to promote increased (I) and decreased need for assistance 4/5 trials 80% to promote returning to PLOF and decreasing caregiver burden. Goal:: Roberta to be mod I to remember and complete HEP for R UE to promote regain ROM of R UE and hand 4/5 trials 80% of the time by d/c. Anticipated Interventions Anticipated Interventions: A/AAROM/PROM, Strengthening, Edema Control, Massage, Triggerpoint Release, Sensory Retraining, Modalities, Orthoses, Joint Protection /Energy Conservation, Ergonomic Education, Fine Motor Coord/Angelito, Neuro Reeducation, Visual/Perceptual Skills, Cognitive Skills, ADL Training, Education re assistive Equipment, Caregiver Training, Home Program Please do not hesitate to contact me at [phone] by phone or Fax: if you have questions or concerns regarding this new plan of care! Sincerely, Amaris Anderson
== END 2018-04-14 19:00 | disposition home or self-care (01) ==
LOC: PT 16:00
PROVIDERS: Family Provider Family Medicine; PCP Family Medicine; Visit Provider Family Medicine
DX: Z86.73 Personal history of transient ischemic attack (TIA), and cerebral infarction without residual deficits (principal)
CPT/HCPCS: 92507; 92523; 92609; 97032; 97110; 97112; 97116; 97163; 97166; 97168; 97530; 97535

== ENCOUNTER 2018-04-30 13:30 | Outpatient (RCR) | payer MEDICAID, SELFPAY ==
--- NOTE | 2018-04-28 12:31 | HP.SP.ADRE_ITS ---
Previous/Current Goals - Goals 1-5 Previous Goal #1: The patient will express basic wants/needs via gestures, signs , visual supports, and/or AAC Goal 1 Status: Afshin continues to be adept at making concrete wants and needs known via gross gesturing and facial expressions in context. Despite maximal attempts, Afshin's accuracy using his AAC to convey personal and emergent information (name, age, date of , address, phone number, and emergency contact) have shown minimal consistent improvements (<50% accuracy). He does not use gestures to convey desired actions independently without any context (ex : does not act out drinking) but is able to imitate actions. Previous Goal #2: The patient will answer simple yes/no questions via gestures, signs, visual supports, and/or AAC Goal 2 Status: Afshin's accuracy answering yes/no questions with any modality varies nuwssud-ib-iivahlw and with different question types, but overall is <50 % accurate. He often provides conflicting information. In general, he does best using a multi-modal approach. Previous Goal #3: The patient will follow non-routine single-step identification or kinesthetic directions Goal 3 Status: Again, Afshin's accuracy with these tasks varies but generally hovers around 50% accuracy. He does best given identification of objects from a field of 2 cards, but struggles to identify everyday objects in the room. He has difficulty pointing to body parts or completing basic actions (ex: clapping hands, sticking out tongue) without moderate-maximal models and cues. Previous Goal #4: The patient will name common nouns via phrase completion, responsive speech, and/or confrontation Goal 4 Status: Afshin is able to complete common phrases with >90% accuracy. However, confrontation naming continues to be near 0% accuracy. He is producing more spontaneous phrases each session (generally 3-4 spontaneous phrases of up to five words independently), but the phrases are not functional or relevant to the conversation. History - History Date of Eval: 07/05/17 Date of Onset of Diagnosis: 10/31/16 Previous speech therapy: Yes Results: 10/30/16 the patient underwent coronary artery bypass graft at [facility]. 10/31/16 he suffered a left MCA distribution infarct complicated by respiratory failure. Hospitalization was prolonged requiring tracheostomy and PEG tube placement followed by LTAC placement. Therapies were initiated and the patient improved to transfer to inpatient rehab at [facility] on 12/21. His tracheostomy and PEG tube were subsequently removed and the pt was discharged to a residential 02/22/17. He currently continues living at home with his with nursing assistance in the home. Smoking Status: Never smoker Hx Smoking: Yes Hx Tobacco Use: Yes - jun 2016 Hx Smoking Exposure: Yes - Pain Is pain an issue with your current prescribed condition?: No Patient Allergies - Allergies Allergies lisinopril Allergy (Verified 04/14/18 15:31) Unknown Objective Cog/Ling/Com - Test Administered Bluvhzktc-Avhuumfrsc-Abzxjlmljifjl Assessment Administered: Yes Qixsrdhlq-Zwhkqvdfkm-Eoltaxoiazptl Assessment: Cognitive ? Linguistic skills were evaluated using patient/family interview, skilled observation and informal evaluation through tasks completed by the patient. - Orientation Orientation: Person - Identification Body parts/objects: Mild, Moderate - Answer Yes/No Questions Simple: Moderate Complex: Severe - Follows Commands 1 Step: Moderate 2 Step: Severe - Automatic Sequences Automatic Sequences: WFL, Mild - Repetition Words: WFL, Mild Sentences: Mild - Naming Responsive naming: Moderate Naming in categories: Severe Cognitive Linguistic Comments - Comments Summary Afshin continues to present with moderate-severe cognitive-linguistic deficits following October, CVA, characterized by severe expressive aphasia and mild- moderate receptive aphasia. Strengths with completing automatic speech and phrase completion tasks with near independence remain, with minimal improvement made with confrontation naming, which is significantly impaired (0/3 independently). He does respond to initial phonemic cues and is able to imitate single words and brief phrases with some labial groping observed. Basic yes/no questions continue to be significantly impaired (0/4 indep). For this re-evaluation, he followed simple one-step commands in 1/5 trials independently, though he improves during less structured and routine activities. He continues to verbalize yeah for almost all expressive communicative attempts. Overall, Afshin has made limited improvement secondary to severity of deficits, length of time since CVA, and frequency of therapy sessions. Plan - Plan Plan: Would recommend continued speech-language therapy due to medical necessity , as Afshin's level of cognitive-linguistic deficits make it difficult for him to convey wants, needs, thoughts, and ideas, as well as follow simple commands, posing a safety risk in emergent situations. Additionally, the patient is highly intrinsicly motivated to improve his cognitive-linguistic functioning. - Recommendations Treatment Warranted: Yes - Frequency Frequency: 1x/Week Duration: 6 Months - Prognosis Prognosis: Fair - Goals that are Established: Determination:: Goals will be added/modified as deemed necessary and appropriate. Therapy will be discontinued when results of re-evaluation indicate therapy is no longer needed or lack of progress has been documented. - Goal #1-5 Goal #1: The patient will express basic wants/needs via gestures, signs, visual supports, and/or AAC Prompts: Min Accuracy: 60% # Sessions: 3/4 Goal #2: The patient will answer simple yes/no questions via gestures, signs, visual supports, and/or AAC Prompts: Min Accuracy: 60% # Sessions: 3/4 Goal #3: The patient will follow non-routine single-step identification or kinesthetic directions Prompts: Min Accuracy: 75% # Sessions: 3/4 Goal #4: The patient will name common nouns and verbs via confrontation Prompts: Mod Accuracy: 50% # Sessions: 3/4
--- NOTE | 2018-04-29 14:13 | HP.PTREVAL ---
Conrad Arroyo, It has been my pleasure to treat ROBERTA ZEE over the last 31 visits for CVA. Please see the progress note below for an update on the physical therapy plan of care! Subjective: Pt. spouse reports that he is doing well, increased walking in the home and into stores. SHe continues to be conserned getting off floor, walking while unsupervised and stair negotaition. Spouse reports patient is HEP compliant, but is recovering from being ill and with managing increased BP currently. SPouse is hopeful to have increased visits to work on safety, stability and further independence with gait. Objective/Function: Pt. chart transfered to [facility] this date. ROM- normal ROM noted- continues to have clonus in RLE with quick stretch. Tight B HS noted. POSTURE: Pt. is able to sit at edge of bed without assistance. flaccid R UE, tends to neglect this arm at times. PALPATION: No pain throghout bilateral UE/LEs. NEURO: Pt. has + clonus in RLE. ROM: Pt. has normal ROM of BLE, tight HS noted. MMT: LLE- 5/5 throughout; RLE- ankle PF 4+/5, DF 1/5; knee- ext 4/5, flexion 4+/5; hip- flexion 4/5, abd 4+/5, ext 4-/5. GAIT: Pt. ambulated with kinza walker with SBA/SUP with improved stability. Pt. does have improved step length bilaterally with step through pattern, decreased R compared to L . STAIRS: Pt is able to complete wtih step to pattern, increased difficulty descending, 1 HR with CGA for safety. Pt. does not like to wear his AFO, but has adequate foot clearance currently with gait. He continues to have some diffuclty with stability with gait, but has improved drastically compared to initial evaluation. He has increased posture, strength and functional mobility compared to initial evaluation. Tx- Pt. Plan Plan: Asking for further PT to continue to progress patients functional mobility. Pt. has been steadily progressing with PT, but recently has had to miss several weeks to illness and handling BP issues, no are controlled. Pt. has improved gait and safety throughout, but can continue to progress further to increase functional independence and decrease caregiver assistance. Goals Goal 1:: Pt. to be I with HEP. Goal Time Frame: 4-6 Weeks Goal Progress: Goal Met Goal 2:: Pt. to have increased BLE strengh by 1/2 grade of all effected musculature. Goal Time Frame: 6-8 Weeks Goal Progress: Progressing Goal 3:: Pt. to ambulate 300+ft. with hemiwalker GABRIELE allowing for increased stability with functional mobility. Goal Time Frame: 6-8 Weeks Goal Progress: Progressing Goal 4:: Pt. to complete all txs GABRIELE with use of hemiwalker. Goal Time Frame: 4-6 Weeks Goal Progress: Goal Met Goal 5:: Pt. to complete all bed mobility GABRIELE/I allowing for increased ability to complete all functional mobility in home. Goal Time Frame: 4-6 Weeks Goal Progress: Goal Met Anticipated Interventions Patient/Client Instruction: Educate patient on: Condition, Plan of Care, Risk Factors, Benefits of Fitness Program For the Purpose of:: To improve decision making, To facilitate caregiver knowledge, To improve self management, To prevent re-injury, To improve ability to perform tasks related to life management, To improve tolerance to ADL's Therapeutic Exercise to Include: Strength training, Power training, Endurance training, Balance training, Agility training, Body mechanics, Postural training, Flexibilty training, Gait and locomotor training, Dynamic Lumbar Stabilization For the Purpose of:: To increase ROM, To improve nutrient delivery to tissue, To increase oxygenation perfusion, To improve muscle performance and motor function, To decrease level of supervision to perform tasks, To improve ability of physical actions for home/community/work/leisure, To improve gait and locomotor functions, To improve health of tissue, To decrease soft tissue restriction, To increase flexibility/ROM Please do not hesitate to contact me at [phone] by phone or if you have questions or concerns regarding this new plan of care! Sincerely, Myron Gillette
--- NOTE | 2018-05-14 11:10 | HP.PT.NRP ---
HP - Discharge Summary (1) - Patient Information ROBERTA ZEE was seen in my office for initial evaluation on 04/25/18. The following Plan of Care was established for this patient: - Anticipated Interventions Patient/Client Instruction: Educate patient on: Condition, Plan of Care, Risk Factors, Benefits of Fitness Program For the Purpose of:: To improve decision making, To facilitate caregiver knowledge, To improve self management, To prevent re-injury, To improve ability to perform tasks related to life management, To improve tolerance to ADL's Therapeutic Exercise to Include: Strength training, Power training, Endurance training, Balance training, Agility training, Body mechanics, Postural training, Flexibilty training, Gait and locomotor training, Dynamic Lumbar Stabilization For the Purpose of:: To increase ROM, To improve nutrient delivery to tissue, To increase oxygenation perfusion, To improve muscle performance and motor function, To decrease level of supervision to perform tasks, To improve ability of physical actions for home/community/work/leisure, To improve gait and locomotor functions, To improve health of tissue, To decrease soft tissue restriction, To increase flexibility/ROM This patient was last seen in our office 04/25/18. 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 Pt. has progressed well with strength and functional mobility, but does continue to have marked weakness and functional limitations. Pt. is changing insurances and this chart will be DC at this point in time. At this point I will be discontinuing this patient from physical therapy. I would be happy to see this patient again in the future if found appropriate by the physician. Thank you! Myron Gillette
--- NOTE | 2018-06-06 10:21 | HP.SP.DC_ITS ---
ST Discharge Summary - Discharged: Discharge: Afshin Bhat is discharged from outpatient speech-language therapy effective 05/14/18 due to exhausted insurance benefits. Continued speech- language therapy is warranted pending further insurance approval. Please see recent re-evaluation for update on Afshin's progress.
== END 2018-04-30 19:00 | disposition home or self-care (01) ==
LOC: OT 13:30
PROVIDERS: Family Provider Family Medicine; PCP Family Medicine; Visit Provider Family Medicine
DX: Z86.73 Personal history of transient ischemic attack (TIA), and cerebral infarction without residual deficits (principal)
CPT/HCPCS: 92507; 97110; 97112; 97164

== ENCOUNTER → 2018-06-13 12:50 | Outpatient (CLI) | payer MEDICAID, SELFPAY ==
--- NOTE | 2018-06-15 06:55 | PFT ---
INTRODUCTION: The patient is a 62-year-old male that presents for pulmonary function testing secondary to a diagnosis of nicotine dependence. Respiratory therapy reports good patient effort. Bronchodilators were used during testing. INTERPRETATION: Forced expiration spirometry demonstrates the presence of a severe large airways obstructive ventilatory defect. There was no significant response to aerosolized bronchodilators. Spirograms are of good quality and do not plateau indicating slow emptying of the lungs. Body plethysmography was performed and reveals a decreased TLC to 4.8 L, 76% of predicted, indicative of a mild restrictive ventilatory impairment. The remainder of the lung volumes are symmetrically reduced. Diffusing capacity by single breath CO is moderately reduced at 48% of predicted. IMPRESSION: These pulmonary function studies demonstrate the presence of an irreversible severe mixed ventilatory defect with symmetric reduction in diffusing capacity. There are no previous pulmonary function studies available for comparison.
== END ==
PROVIDERS: Family Provider Family Medicine; PCP Family Medicine; Referring Provider Internal Medicine Critical Care Medicine; Visit Provider Internal Medicine Critical Care Medicine
DX: F17.211 Nicotine dependence, cigarettes, in remission (principal)
CPT/HCPCS: 94060; 94726; 94729

== ENCOUNTER 2018-10-01 16:00 | Outpatient (RCR) | payer OTHER, MEDICAID, SELFPAY ==
--- NOTE | 2018-06-04 17:10 | HP.PTEVAL ---
Patient's Visit Information ROBERTA ZEE is a 62 year old M referred to Physical Therapy by PETROS HERNANDEZ with a diagnosis of CVA. Date of Evaluation: 06/04/18 Physical Therapist: Dov Zazueta DPT, [place] - Visit Plan Frequency: 1-2x /Week Duration: 4-6 Weeks Plan: 2x/week for 2 weeks then 1x/week for 4 weeks... 1. stand with symmetrical WB balance activities. 2. steps each day to tolerance. 3. Walk with LBQC(pt to bring) and no AD as fear allows and gait training. 4. Floor transfers. Pt to continue home exerc ises of LE strength chair and bed. may progress to standing as safety allows in PT then HEP. Pt is to bring brace for instruction on benefits and no WC(as safety allows) - Subjective Subjective: Pt is back for more therapy. Not needing WC unless long football game etc.Using 3 prong cane at home. Using hemiwalker out and about. Better then was a month ago when last had PT. Been doing a lot of walking to [employer] adn [employer]. Doing leg exercises and using steps with wifes supervision(3-4 at son's house). Doing leg movements in bed and chair and moving legs. Moving in bed is fine, sleeping is good.. Eating is good. Spends day watching TV in recliner. Goes to bathroom himself. Showers in chair without assist in step in tub with grabbars. New insurance from [place] as [facility] wouldn't cover anymore. Bed mobility is I. Wants to wrok on floor transfer. No falls lately, no spinning. - Objective Roberta walk to therapy with kinza walker L UE mod I, next to him. His R leg accepts weight well but stays abducted adn poor confidence in it. He can walk with mod MARKET DEVELOPMENT ANALYST without AD but is very scared. HE can stand without assist but very little wweight through R side. Can march in place with MARKET DEVELOPMENT ANALYST but poor confidence in R LE. Steps are very scary for him and tends to use L leg as R leg is too weak to push him up without UE assist mod. Very tired adn heavy breathing after one flight adn scared, needs to sit on bottom two step. Walks 15 feet today during therapy. Has little to no use of R UE and is in OT for this. He is verbal with yes and no answers but needs corrected to no by his when he shakes his head no but verbalizes yes. Only other word I hear today is bye Otherwise happy and seems to understand questions just having trouble with answers. L UE and LE are WFL and 4+/5 strength. R LE has poor motor control in knee flexion and PF/DF. No active ev/inv or DF but can plantarflex without weight. Has a brace at home but not wearing it. Tends to catch his toe slightly when walking but no LOB. -10 degrees of DF actively and passively today. Knee ext R 3/5 adn Flexion 3/5. Hip flexion 3+, abd 3+, add 4/5, ext 3-. Can lie flat without problem but not neutral DF. Posture is slightly hunched FW and tends to lean L. Bed transfer adn chair transfer I with L UE. Floor transfer not tested today. - Goals Goal 1:: Steps up and down without hands on assist mod I Goal Time Frame: 8-12 Weeks Goal 2:: Walk 10 feet without AD supervision and no fear, walk with LBQC into and out of PT mod I 300 feet. Goal Time Frame: 8-12 Weeks Goal 3:: Floor trasnfer with Min A Goal Time Frame: 8-12 Weeks Goal 4:: depilatory painter neutral frontal plane posture and perform activities 3 min without LOB. Goal Time Frame: 8-12 Weeks - Rehabilitation Potential Physical Therapy Diagnosis: CVA, R sided deficits. Rehabilitation Potential: Questionable - Anticipated Interventions Patient/Client Instruction: Educate patient on: Condition, Plan of Care For the Purpose of:: To improve ability of physical actions for home/community/work/leisure, To improve gait and locomotor functions Therapeutic Exercise to Include: Strength training, Gait and locomotor training For the Purpose of:: To improve ability of physical actions for home/community/work/leisure, To improve gait and locomotor functions Thank you for the opportunity to evaluate your patient. For Medicare and Medicare HMO plans, please review the plan of care and approve it. It will need to be FAXED BACK to us at [phone] for Medicare purposes. Please let me know if there are questions or concerns regarding this plan of care. Physician Signature: Date:
--- NOTE | 2018-06-04 19:28 | HP.OTEVAL_ITS ---
Patient's Visit Information ROBERTA ZEE is a 62 year old M, referred to Occupational Therapy by PETROS HERNANDEZ, with a diagnosis of H/o CVA; Ataxia; Hand weakness. Date of Evaluation: 06/04/18 Occupational Therapist: Amaris Anderson - Subjective Subjective: Arrived and noted have recieved more visits from [place]. He will be two years post CVA in October 2018. Has recieved e-stim unit and needs additional training. noted he has been wearing splint off/on but not consisently. - Objective Objective/Observation: Increased spasitycity with i ncreased flxor tone and fisting of hand. Tone reduces with prolonged strength. Limited ROM, able to passively move wrist to neutral after prolonges stretch. No active shoulder ROM, increased labored elbow flexion with compensations and increased lateral leaning noted. - ROM Elbow: Active R 0-49, L WNL Forearm: R able to passively get to neutral , L WNL Wrist: Passive flexion R 0-71, active L WNL; Extension Passive R 0-44, L WNL MP: R Able to passively move to neutral , L WNL PIP: R Able to passively move to neutral , L WNL DIP: R Able to passively move to neutral , L WNL ROM Comments: Flexor tone noted with increased spaticity and fisting of hand. Wirst is flexed at about 71 degrees with ablity to move to neutral position. He is able to be passively move to wirst in neutral but passive supination is limited at this time. Per caregiver reports he does stretch wrist and hand and wears brace maybe once a day. ROM is declined from previous reassessment. - Strength Shoulder: elevation R 1 L 5 Elbow: flexion R 1 L 5 Forearm: R 0 L 5 Wrist: extension R 1 L 5 Geospatial Intelligence Analyst: R unable, L 83 lbs Lateral Pinch: R unable, L 26 Tripod Pinch: R unable, L 24 Tip-to-Tip Pinch: R unable, L 16 - Sensation Stereognosis: Abnormal - Right, Normal - Left Kinesthesia: Abnormal - Right, Normal - Left Proprioception: Abnormal - Right, Normal - Left Sensation Comments: Sensationdefciits noted but Pt. is poor informant of measurements due to global aphasia. - Movement Muscle Tone: spastic t/o R UE Movement Comments: Muscle spasms noted t/o evaluation in R thumb with withering like movements. Additional muscle spasms noted in flexor synergies of forearm. - Cognitive Skills Follows Directions: No Oriented to (Check all that apply): Person Short Term Memory Impaired: Yes Cognitive Comments: Has increased difficulty planning more than 1-2 steps tasks. requires WICHITA A to complete tripod and tip pinches with L nonaffected hand for strength measurements. With familar tasks he is often more likley to able to follow directions with cues as needed but with new tasks further demonstration is required for comprehension. - Attention Attention: Fair - Balance Dynamic Sitting: F+ - Transfers Transfers: He is completing transfers at mod I but is neglects R UE. Cues to manage arm. - Stroke Specific Quality of Life Total SS-QOL Score: 104 - Goals Goal:: Roberta to work on normalizing tone through tone management programa nd e- stim topromote increased ROM and strength of R UE for ADl/IADls by d/c. Goal:: Roberta to be (i) to regain at least 20 degrees AROM of hand and wrist to promote increased ability to be able to get [facility] by [facility]c. Goal:: Roberta to increased functional use of R UE to promote increased B UE tasks e.g opening jar, toilet hygiene to promote increased ability to complete ADl/IADls at [facility]. Goal:: Roberta/caregiver to complete proper pad placements for complete of e-stim HEp to help normalize and regulate tone, promote strength,a dn help increased functional use of RUE 4/5 trials 80% of the time by d/c. - Rehabilitation General Assessment: Roberta landa for Ot evaluation on this date of 06/04/18. He was previously seen by OT and has since been able to obtain a e-stim unit for R hemiplegic UE. Further training for e-stim use as part of HEp to be complete as a part of OT. Further OT to work ons trengthening, ROM, and increasing Roberta's ability to functionally use RUE to promote increased (i) with ADl/IADls. Rehabilitation Potential: Fair - Anticipated Interventions Anticipated Interventions: A/AAROM/PROM, Strengthening, Triggerpoint Release, Sensory Retraining, Modalities, Orthoses, Joint Protection/Energy Conservation, Ergonomic Education, Fine Motor Coord/Angelito, Neuro Reeducation, Cognitive Skills, Education re assistive Equipment, Caregiver Training, Home Program - Visit Plan Frequency: 1-2x /Week Duration: 6 Weeks General Plan: OT to work on increasing fucntional use of R UE to promote increaed active ROM, strength, and ability to use R UE for ADl/IADls. OT will work on training caregivers in the use of [facility] to promote management of tone and promote mvoements. Additionally, splint schedule and general HEp to be addressed to promote Roberta's ability to complete ADl/IADLs with B UE. TEXT: Thank you for the opportunity to evaluate your patient. For Medicare and Medicare HMO plans, please review the plan of care and approve it. It will need to be FAXED BACK to us at [phone] for Medicare purposes. Please let me know if there are questions or concerns regarding this plan of care. Physician Signature: Date:
--- NOTE | 2018-06-06 11:45 | HP.SP.AD ---
History - History Date of Eval: 06/04/18 Date of Onset of Diagnosis: 10/31/16 Previous speech therapy: Yes Results: 10/30/16 the patient underwent coronary artery bypass graft at [facility]. 10/31/16 he suffered a left MCA distribution infarct complicated by respiratory failure. Hospitalization was prolonged requiring tracheostomy and PEG tube placement followed by LTAC placement. Therapies were initiated and the patient improved to transfer to inpatient rehab at [facility] on 12/21/16. His tracheostomy and PEG tube were subsequently removed and the pt was discharged to a [facility] 02/22/17. He currently continues living at home with his with nursing assistance in the home. Afshin participated in 33 therapy sessions at this facility since July, before discharge was necessary for insurance purposes. Smoking Status: Former smoker Hx Smoking: Yes Hx Tobacco Use: Yes - jun 2016 Hx Smoking Exposure: Yes - Pain Is pain an issue with your current prescribed condition?: No Patient Allergies - Allergies Allergies lisinopril Allergy (Verified 05/07/18 13:52) Unknown Objective Cog/Ling/Com - Test Administered Bjkrbuosz-Gnmpjsbell-Feokpnkvmzuau Assessment Administered: Yes Iypaddppf-Akfbltbshp-Yhbbbudtfmkla Assessment: Cognitive ? Linguistic skills were evaluated using patient/family interview, skilled observation and informal evaluation through tasks completed by the patient. - Orientation Orientation: Person - Identification Body parts/objects: Mild, Moderate - Answer Yes/No Questions Simple: Moderate Complex: Severe - Follows Commands 1 Step: Moderate 2 Step: Severe - Automatic Sequences Automatic Sequences: WFL, Mild - Repetition Words: WFL, Mild Sentences: Mild - Naming Responsive naming: Moderate Naming in categories: Severe Cognitive Linguistic Comments - Comments Summary Afshin presents with moderate-severe cognitive-linguistic deficits following October, CVA, characterized by severe expressive aphasia and mild-moderate receptive aphasia. Strengths include completing automatic speech and phrase completion tasks with near independence, with minimal improvement made with confrontation naming, which is significantly impaired (0/10 independently). He does respond to initial phonemic cues and is able to imitate single words and brief phrases with some labial groping observed. Basic yes/no questions continue to be significantly impaired (0/4 indep). He follows simple one-step commands in 1/5 trials independently, though he improves during less structured and more routine activities. Afshin identified 11/16 similar objects from a field of 2 during this evaluation. He continues to verbalize yeah for almost all expressive communicative attempts, though is beginning to produce more verbal speech of up to three words without functional meaning/context. Because Afshin is known to this LEVEL VIAL INSPECTOR AND TESTER from previous therapy, it is important to note that he has made limited improvement secondary to severity of deficits, length of time since CVA, and length of time between therapy sessions. Plan - Plan Plan: Nonetheless, skilled speech-language therapy continues to be warranted due to medical necessity, as Afshin's level of cognitive-linguistic deficits make it difficult for him to convey wants, needs, thoughts, and ideas, as well as follow simple commands, posing a safety risk in emergent situations. Additionally, the patient is highly intrinsicly motivated to improve his cognitive-linguistic functioning. - Recommendations Treatment Warranted: Yes - Frequency Frequency: 1x/Week Duration: 6 Months - Prognosis Prognosis: Fair - Goals that are Established: Determination:: Goals will be added/modified as deemed necessary and appropriate. Therapy will be discontinued when results of re-evaluation indicate therapy is no longer needed or lack of progress has been documented. - Goal #1-5 Goal #1: The patient will express basic wants/needs via gestures, signs, visual supports, and/or AAC Prompts: Min Accuracy: 60% # Sessions: 3/4 Goal #2: The patient will answer simple yes/no questions via gestures, signs, visual supports, and/or AAC Prompts: Min Accuracy: 60% # Sessions: 3/4 Goal #3: The patient will follow non-routine single-step identification or kinesthetic directions Prompts: Min Accuracy: 75% # Sessions: 3/4 Goal #4: The patient will name common nouns and verbs via confrontation Prompts: Min Accuracy: 50% # Sessions: 3/4 Education - Patient has Indicated that the Following Identified Educational Needs: None The Patient has indicated that they have no educational or learning abilities that may effect their care.: Yes - Patient Instruction Patient Education: Diagnosis, Treatment Plan, Goals
--- NOTE | 2018-06-06 14:48 | HP.OTEVAL ---
Patient's Visit Information ROBERTA ZEE is a 62 year old M, referred to Occupational Therapy by PETROS HERNANDEZ, with a diagnosis of H/o CVA; Ataxia; Hand weakness. Date of Evaluation: 06/04/18 Occupational Therapist: Amaris Anderson - Subjective Subjective: Arrived and noted Roberta has recieved more therapy visits from [place]. Previously on personal insurance with [place] as secondary insurance. He will be two years post CVA in October 2018. He has recieved e-stim unit and needs additional training for proper completion of e-stim unit. noted he has been wearing splint off/on but not consisently. Noted feels increased tone. Explained he is doing well with home tasks. Global aphasia still present. Some words starting. - Objective Objective/Observation: Increased spasticity with increased flexor tone and fisting of hand. Tone reduces with prolonged stretch and proprioceptive cues. Limited ROM noted in L UE. He is able to passively move wrist to neutral after prolonged stretch. No active ROM of shoulder, wrist, or hand observed. He is able to complete elbow flexion with holding breath and increased labor of tasks. Notable compensations of elbow flexion with increased holding breath, and lateral leaning. - ROM Elbow: Active R 0-49, L WNL Forearm: R able to passively get to neutral , L WNL Wrist: Passive flexion R 0-71, active L WNL; Extension Passive R 0-44, L WNL MP: R Able to passively move to neutral , L WNL PIP: R Able to passively move to neutral , L WNL DIP: R Able to passively move to neutral , L WNL ROM Comments: Flexor tone noted with increased spasticity and fisting of hand. Wrist is flexed at about 71 degrees with ability to move to neutral position through passive ROM. He is able to passively move to wrist to neutral but passive and active supination is limited at this time. He is able to get to passive neutral position of forearm only. Per caregiver report he does stretch wrist and hand and wears brace maybe once a day. ROM is declined from previous reassessment. - Strength Shoulder: elevation R 1 L 5 Elbow: flexion R 2+ L 5 Forearm: R 0 L 5 Wrist: extension R 1 L 5 Private Secretary: R unable, L 83 lbs Lateral Pinch: R unable, L 26 Tripod Pinch: R unable, L 24 Tip-to-Tip Pinch: R unable, L 16 Strength Comments: Strength decreased but some muscle firing noted with palpation. - Edema PIP: Some edema mostly from immobility noted in R hand. - Sensation Stereognosis: Abnormal - Right, Normal - Left, Abnormal - Left Kinesthesia: Abnormal - Right, Abnormal - Left Proprioception: Abnormal - Right, Normal - Left Sensation Comments: Sensation deficits noted but Pt. is poor informant of measurements due to global aphasia. - Movement Muscle Tone: spastic t/o R UE Movement Comments: Muscle spasms noted t/o evaluation in R thumb with withering like movements. Additional muscle spasms noted in flexor synergies of forearm. - Cognitive Skills Follows Directions: No Oriented to (Check all that apply): Person Short Term Memory Impaired: Yes Cognitive Comments: Has increased difficulty planning more than 1-2 steps tasks. requires ONEIDA A to complete tripod and tip pinches with L nonaffected hand for strength measurements. With familar tasks he is often more likley to able to follow directions with cues as needed but with new tasks further demonstration is required for comprehension. - Attention Attention: Fair - Balance Dynamic Sitting: F+ - Transfers Transfers: He is completing transfers at mod I but is neglects R UE. Cues to manage arm. - Stroke Specific Quality of Life Total SS-QOL Score: 115 - Goals Goal:: Roberta to work on increased strength of R UE through HEP andf use of functional e-stimulation unit to promote increased ROM and strength of R UE for ADl/IADls by d/c. Goal:: Roberta to be (i) to regain at least 20 degrees AROM of finger flexion and extension as well as wrist to promote increased ability to complete ADl/IALDs with R UE and increased ability to get [facility] by [facility]c. Goal:: Roberta to increased functional use of R UE to promote increased B UE coordaintion and use for self care tasks (e.g opening jar, toilet hygiene) to promote increased ability to complete ADl/IADls at [facility]. Goal:: Roberta to follow 1-2 step instructions to complete self care and HEP to promote increased ability to increased use fo R UE by d/c. Goal:: Roberta/caregiver to complete proper pad placements for completion of functional e-stimulation unit to promoter ability to be ability to use tenodesis like grasp to manipulate self care items as wella s regulate tone, promote strength and help increased functional ROM of RUE 4/5 trials 80% of the time by d/c. - Rehabilitation General Assessment: Roberta arrived for OT evaluation on this date of 06/04/18. He was previously seen by OT and has since been able to obtain an e-stimulation unit for toner management and strengthening of R hemiplegic UE. He continues to exhibit severely limited ROM, strength, and functional use of R UE. Limited ROM of R UE noted with testing. Further training for e-stimulation unit is needed to promote use of unit as part of HEP. Further OT to work on strengthening, ROM, and increasing Roberta's ability to functionally use RUE to promote increased (i) with ADl/IADls with use of e-stimulation unit through caregiver training. Additionally, ROM, strength, positioning, and generally function in ADl/IAdls to be completed for Roberta and caregivers to promote Roberta regaining increased functional use of R arm. Rehabilitation Potential: Fair - Anticipated Interventions Anticipated Interventions: A/AAROM/PROM, Strengthening, Triggerpoint Release, Sensory Retraining, Modalities, Orthoses, Joint Protection/Energy Conservation, Ergonomic Education, Fine Motor Coord/Angelito, Neuro Reeducation, Cognitive Skills, ADL Training, Education re assistive Equipment, Caregiver Training, Home Program - Visit Plan Frequency: 1-2x /Week Duration: 6 Weeks General Plan: OT to work on increasing functional use of R UE to promote increased active ROM, strength, and ability to use R UE for ADl/IADls. OT will work on training caregivers in the use of functional e-stimulation unit provided by [place] to promote management of tone and promote movements. Additionally, splint schedule and general HEP to be addressed to promote Roberta's ability to complete ADl/IADLs with B UE. TEXT: Thank you for the opportunity to evaluate your patient. For Medicare and Medicare HMO plans, please review the plan of care and approve it. It will need to be FAXED BACK to us at [phone] for Medicare purposes. Please let me know if there are questions or concerns regarding this plan of care. Physician Signature: Date:
--- NOTE | 2018-07-22 10:17 | HP.OTREVAL ---
PETROS HERNANDEZ, It has been my pleasure to treat ROBERTA ZEE over the last 6 visits for H/o CVA; Ataxia; Hand weakness. Please see the progress note below for an update on the occupational therapy plan of care! Subjective: Arrived with . Canceled AM appointment and resceduled in afternoon. Noted that feels about 30% improvement, mostly with tone. He continues to communicate nonverbally and through . due to global aphasia but is able to indicate answer to yes /no questions at times. Objective/Function: Completed reassessment today of 07/21/18. Measurements are as follows: Tone: Tone has significantly been reduced with use of e-stim unit. OT able to palpate upper trapezius and general scapular stabilizers. Additional OT able to complete mobilization with decreased tone and promote scapular glides with tone reduction. Wrist is able to be moved to neutral and finger have less flexor tone when stretched. Flexor tone still present throughout R UE. ROM: Limited active ROM noted on R UE. Measurements are as follows: Shoulder elevation: He is starting to should signs if active shoulder elevation on R UE. Discrepancies still noted compared to L UE built able to palpate muscle at this time. Shoulder flexion: R passive 0-115, L WFL. R active 0-0- muscle do show trace signs of contraction but not movement at this time, L WNL. Shoulder Internal rotation. R passive 0-29 , WNL. R AAROM R 0-18 with increased compensations of holding breath, L WNL. External rotation. R passive 0-46, L WNL. R AAROM 0-23 of increased compensations of holding breath, leaning back and lateral leaning to L side, as well as extending elbow with movement, L WNL. Elbow flexion: Passive R WFL, L WNL. Active R 0-60 with increased compensation of minimal lateral leaning to L side but increased holding of breath to point Pt. getting red in face; attempted R elbow flexion second time and 0-45 degrees as increased fatigue indicating limited endurance; L WNL. When moving to elbow flexion position he is able to relax back to neutral. Previously, Roberta with get stuck in flexed position due to increase in flexor tone. This is no longer occurring and is progress from previous performance. Wrist: Wrist flexion: passive R 0-72, WFL. Wrist extension passive: 0-34, L WNL. Wrist flexion active ROM from neutral position 0-29, L WNL. -With wrist flexion is appear movement is compensation with shoulder internal rotation and increased elevation noted with movement. Strength: Shoulder elevation R -2/5, L 4+/5. Shoulder flexion R 1/5, L 5/5. IR R -2/5, L 4+/5. Elbow flexion R -2/5, L 5/5- he no longer gets stuck in flexed position but when relaxing if able to resume neutral. Minimal trace noted with palpation of triceps during task. Elbow extension 1/5, 4+/5. Wrist extension R 1/5, L 4+/5. Wrist flexion 1/5, L 4+/5- in active assistive position he is able to complete forward flexion and although flexors of forearm are activated the majority of movement is coming from shoulder. Director Of Instrumental Music R unable, L 94. Lateral R unable at this time, L 24. Three jaw R unable at this time, L 22. Pincer R unable at this time, L 16 lbs. Sensation: R 2nd 3.22, 3rd 3.61, 4th 4.08, 5th red lined but unable to get accurate measurement as consistent senses input on RF rather than PF, thumb 4.08. L 2nd 2.83, 3rd 2.83, 4th 2.83, 5th 2.83, thumb 2.83. 9 Hole Pegboard Test: R Unable at this time; L 33.95 s. Roberta is able to complete 2 steps directions. Global aphasia remains at this time, but he is progressing in ability to complete 2 step directions. Plan Frequency: 1-2x /Week Duration: 6 Weeks Visits in this POC: 8 Plan: continue 1x POC. After 07/24/18 appointment will hold medical care until returning [place] after first of the year. to get new order to [facility] to return to previous primary insurance. Goals - Goals Goal:: Roberta to work on increased strength of R UE through HEP andf use of functional e-stimulation unit to promote increased ROM and strength of R UE for ADl/IADls by d/c. Goal:: Roberta to be (i) to regain at least 20 degrees AROM of finger flexion and extension as well as wrist to promote increased ability to complete ADl/IALDs with R UE and increased ability [facility]. Goal:: Roberta to increased functional use of R UE to promote increased B UE coordaintion and use for self care tasks (e.g opening jar, toilet hygiene) to promote increased ability to complete ADl/IADls at PLOF. Goal:: Roberta to follow 1-2 step instructions to complete self care and HEP to promote increased ability to increased use fo R UE by d/c. Goal:: Roberta/caregiver to complete proper pad placements for completion of functional e-stimulation unit to promoter ability to be ability to use tenodesis like grasp to manipulate self care items as wella s regulate tone, promote strength and help increased functional ROM of RUE 4/5 trials 80% of the time by d/c. Anticipated Interventions Anticipated Interventions: A/AAROM/PROM, Strengthening, Triggerpoint Release, Sensory Retraining, Modalities, Orthoses, Joint Protection/Energy Conservation, Ergonomic Education, Fine Motor Coord/Angelito, Neuro Reeducation, Cognitive Skills, ADL Training, Education re assistive Equipment, Caregiver Training, Home Program Please do not hesitate to contact me at [phone] by phone or if you have questions or concerns regarding this new plan of care! Sincerely, Amaris Anderson
--- NOTE | 2018-10-31 12:39 | HP.PTDCSUM_ITS ---
HP - PT D/C Summary It has been my pleasure to treat ROBERTA ZEE under orders from PETROS HERNANDEZ, for the diagnosis of CVA for a total of 9 visit(s). Discharge Date: 09/15/18 Please see the following information for a summary of their discharge status. - Subjective Subjective: Pt's reports that the patient is walking better at home. Pts spouse reports he is ~70% better with his gait. He continues to fatigue rapidly, but has overall improved. - Overall Improvement % Improvement: 70 - Objective Objective/Function: Pt. tolerated all PT. Pt. without adverse reaction. Pt. reports no issues wtih PT. Pt. has progress with walking. He is now walking with SUP with kinza walker. He reports no pain. He contiunes to have expressive aphasia. He is completing all mobility with SUP, except floor transfers which is modA to complete. PT. is also not completing stairs due to large amount of fatigue and modA to complete. Pt. will be DC from PT at this point in time. - Goals Goal 1:: Steps up and down without hands on assist mod I Goal Progress: Progressing Goal 2:: Walk 10 feet without AD supervision and no fear, walk with LBQC into and out of PT mod I 300 feet. 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 Goal Progress: Goal Met - Plan Plan: Pt. to be DC from PT at this point in time. - D/C Information Discharge Comments: Pt. was treated with LE strengthening, balance, and functional mobility training. He progressed with use of LBQC with gait and his floor transfers. Pt. will be DC from PT at this point in time. If there are questions or concerns regarding this patient's physical therapy, please feel free to call me at [phone]. Thank you for the referral of this patient. Sincerely, Myron Gillette DPT
== END 2018-10-01 19:00 | disposition home or self-care (01) ==
LOC: PT 16:00
PROVIDERS: Family Provider Family Medicine; PCP Family Medicine
DX: I69.321 Dysphasia following cerebral infarction (principal)
CPT/HCPCS: 92507; 92523; 97110; 97112; 97162; 97166; 97168; 97530; G8978; G8979; G8987; G8988; G9162; G9163

== ENCOUNTER 2019-03-11 13:02 | Observation (INO) | payer MEDICARE, SELFPAY ==
[2018-12-04 13:38] VITALS: BMI 29.9
[2019-03-11] VITALS (10 sets, daily range): BP systolic 142–154; BP diastolic 48–80; PULSE 45–55; RESP 16–24; TEMP 36.5–36.9; O2SAT 90–95; BMI 28.0; BMI 28.1
--- NOTE | 2019-03-11 13:19 | CT_ITS ---
STUDY: CT BRAIN WITHOUT CONTRAST REASON FOR EXAM: Male, 63 years old. Confusion. RADIATION DOSAGE (If Supplied By Facility): CTDIvol = ( 44.99 ) mGy, DLP = ( 812.98 ) mGycm TECHNIQUE: Transaxial CT imaging of the brain was performed without administration of intravenous contrast material. Individualized dose optimization techniques were used for this CT. COMPARISON: Comparison is made with prior study dated October 09, 2017. FINDINGS: Normal soft tissue structures. Normal calvarium. There is mild cerebral atrophy with widening of the extra-axial spaces and ventricular dilatation. Stable encephalomalacia in the left frontal parietal temporal lobes in keeping with old infarction. This is unchanged. There is ipsilateral dilatation of the left ventricle due to the encephalomalacia. Normal basal ganglia and thalami. Normal brainstem. There is mild cerebellar atrophy. There is no intracranial hemorrhage. There are no findings of an acute ischemic infarction. Normal visualized paranasal sinuses. CT/Brain/Head without Contrast IMPRESSION: Chronic involutional changes of the brain. Stable encephalomalacia involving the left frontal temporal parietal lobes. No acute abnormality is seen. Electronically Signed: Peter Soto, at 14:34 EDT , Service support ,
--- NOTE | 2019-03-11 13:20 | EKG12_ITS ---
Test Reason : CONFUSION Blood Pressure : / mmHG Vent. Rate : 047 BPM Atrial Rate : 047 BPM P-R Int : 276 ms QRS Dur : 086 ms QT Int : 516 ms P-R-T Axes : 049 -20 019 degrees QTc Int : 456 ms Sinus bradycardia with 1st degree A-V block Inferior infarct , age undetermined Abnormal ECG Confirmed by FELIPA PIZARRO ([id number]), telegraph editor ANTHONY LANCASTER ([id number]) on 03/16/2019 1:30:03 PM Referred By: Arti Escalante Confirmed By:FELIPA PIZARRO
--- NOTE | 2019-03-11 13:21 | ED.DCSUM_ITS ---
History of Present Illness Chief Complaint: Confusion Informant: Patient, Friend Onset: Days Context: Gradual Onset Current Severity: Moderate Maximum Severity: Moderate Narrative: Patient has history of stroke 2-1/2 years ago. He has right-sided weakness and speech difficulty since that time. and caregiver are at bedside. They state that typically he could answer yes and no and can point to things when asked. Over the last 2 days they have noted he seems more confused and frustrated. He is not able to point to things when asked. They state that he has been rubbing his forehead as if he has a headache. He has had no vomiting. He is tolerating p.o. diet without difficulty. Past history is also significant for carotid disease, cerebral aneurysm, coronary disease, A. fib, hypertension, high cholesterol. He is on Eliquis. Past Medical History - Allergies and Home Meds Allergies/Adverse Reactions: Allergies lisinopril Allergy (Verified 03/11/19 13:04) Unknown Sulfa (Sulfonamide Antibiotics) Allergy (Verified 03/11/19 13:04) Rash Primary Care Physician: Conrad Arroyo MD [Primary Care Provider] - Prior records reviewed: Yes Past Medical History: - - Reviewed Surgical History: coronary bypass surgery, - - Tracheostomy and PEG tube. Lives: Spouse/ Significant Other Smoking Status: Former smoker - Family History Maternal Family History: Reports: Stroke Paternal Family History: Reports: - - Aneurysm Review of Systems ROS: Unable to Obtain - Per at bedside, patient does not seem to complain of chest pain, shortness of breath, or abdominal pain. He has not had vomiting. Patient is unable to answer questions himself. General: Denies: Chills, Fever Physical Exam Vital Signs/Narrative: Vital Signs Temp Pulse Resp BP Pulse Ox 03/11/19 13:04 97.7 F L 52 L 16 154/57 H 94 Inital Vital Signs reviewed: Yes General: Well nourished, Well developed ENT: Moist mucous membranes Neck: Supple Cardiovascular: Regular rate, Regular rhythm Respiratory: No distress, CTA bilaterally Abdomen: Soft, Nontender, Normal bowel sounds Neurological: Alert, - - Patient with chronic right-sided weakness. He has chronic aphasia. He repeats the word yes when asked any question. Diagnostic/Tx/Re-eval Impressions Brain CT 03/11/19 13:19 IMPRESSION: Chronic involutional changes of the brain. Stable encephalomalacia involving the left frontal temporal parietal lobes. No acute abnormality is seen. Electronically Signed: Peter Soto, at 14:34 EDT , Service support , Chest X-Ray 03/11/19 13:25 IMPRESSION: No acute abnormality is seen. Electronically Signed: Peter Soto, at 14:06 EDT , Service support , 03/11/19 13:19 Brain/Head without Contrast [CT] Stat 03/11/19 13:25 Chest 1 View (Portable) [RAD] Stat Laboratory Results 03/11/19 03/11/19 13:50 13:50 WBC 12.0 H RBC 4.46 L Hgb 12.1 L Hct 38.9 L MCV 87.2 MCH 27.1 MCHC 31.1 L RDW Std Deviation 47.1 H RDW Coeff of Makayla 15.0 H Plt Count 287 MPV 10.5 Immature Gran % (Auto) 1.400 H Neut % (Auto) 57.3 Lymph % (Auto) 20.5 Crane % (Auto) 13.0 H Eos % (Auto) 7.1 H Baso % (Auto) 0.7 Absolute Neuts (auto) 6.9 Absolute Lymphs (auto) 2.46 Nucleated RBC % 0.2 Diff Path Review December Sodium 141 Potassium 4.4 Chloride 108 H Carbon Dioxide 28.0 Anion Gap 5 BUN 16 Creatinine 1.34 H Estim Creat Clear Calc 56.43 Est GFR (MDRD) Af Amer 69 Est GFR (MDRD) Non-Af 57 L BUN/Creatinine Ratio 11.9 Glucose 91 Calcium 8.7 Total Bilirubin 0.70 Direct Bilirubin 0.20 AST 34 ALT 55 Alkaline Phosphatase 164 H Troponin I < 0.015 Total Protein 7.7 Albumin 3.6 Globulin 4.1 - EKG Initial EKG Interpretation: Sinus Rhythm - Sinus bradycardia at 47 bpm with a first-degree AV block. No acute ST change. - Medical Decision Making Patient presents with and caregiver. He has history of significant stroke 2-1/2 years ago. They have noted increased agitation and confusion over the past 2 days and are concerned he may have had another stroke. It is almost as if he has an expressive aphasia where he gets frustrated in trying to convey what he wants but is getting it wrong. He does have a mildly elevated white count. He has been unable to provide a urine sample at this time. Bladder scan only revealed 60 cc of urine in his bladder. Even if the patient does have a UTI, I do not feel comfortable claiming this is the only cause of his current symptoms. I do believe the patient should be admitted for neuro checks and MRI to ensure he did not have an additional stroke. prefers this as well. I will speak with the hospitalist. ED Disposition - Plan for ED Patient: Disposition: Acute Care Hospital [facility] Diagnosis: Confusion Referrals: Conrad Arroyo MD [Primary Care Provider] -
--- NOTE | 2019-03-11 13:25 | RAD_ITS ---
STUDY: X-RAY CHEST REASON FOR EXAM: Male, 63 years old. Confusion. TECHNIQUE: Single AP portable view of the chest. COMPARISON: None. FINDINGS: The lungs are clear and expanded. Scattered calcified granulomas. There is no demonstrated pleural abnormality. Sternal cerclage wires and vascular clips are present from a prior sternotomy and coronary artery bypass graft procedure (CABG). Normal mediastinum and ying. Normal visualized pulmonary arteries. There is atherosclerotic tortuosity of the aortic arch and descending thoracic aorta. Normal visualized thoracic spine. There is degenerative osteoarthritis of the bilateral shoulders. There is no demonstrated abnormality of the visualized soft tissue structures of the upper abdomen. RAD/Chest 1 View (Portable) IMPRESSION: No acute abnormality is seen. Electronically Signed: ePter Soto, at 14:06 EDT , Service support ,
[2019-03-11] MEDS: 0.9% Normal Saline 1,000 ML 150 ML IV ×2 (13:54→22:00)
[2019-03-11 14:06] LABS: Absolute Lymphocyte Count 2.46 X10^3/uL (0.83-4.51); Absolute Neutrophil Count 6.9 X10^3/uL (2.0-7.7); Basophil# 0.09 X10^3/uL; Basophil% 0.7 % (0-1); Eosinophil# 0.85 X10^3/uL; Eosinophils% 7.1 % (0-5); Hematocrit 38.9 % (40-54); Hemoglobin 12.1 g/dL (13.0-16.5); Lymphocyte # 2.46 X10^3/ul (4.0); Lymphocyte % 20.5 % (19-41); Mean Corp Hgb Conc 31.1 g/dL (32-36); Mean Corpuscular Hgb 27.1 pg (27.0-32.0); Mean Corpuscular Volume 87.2 fL (80-94); Mean Platelet Vol. 10.5 fl (6.2-12.0); Monocyte# 1.56 X10^3/uL; NRBC Flagged by Analyzer 0.2 % (0-5); Neutrophil # 6.89 X10^3/uL (2.7-7.7); Neutrophil % 57.3 % (47-70); POSITIVE DIFFERENTIAL YES; Platelet Count 287 K/mm3 (150-450); RBC Distribution Width SD 47.1 fl (35.1-43.9); Red Blood Count 4.46 M/mm3 (4.6-6.2)
[2019-03-11 14:11] LABS: Differential Indicated SCAN CRITERIA MET
[2019-03-11 14:23] LABS: AST(SGOT) 34 U/L (15-37); Alanine Aminotransfer ALT/SGPT 55 U/L (16-61); Albumin, Serum 3.6 g/dL (3.2-5.0); Alkaline Phosphatase 164 U/L (45-117); Anion Gap 5 (5-15); BUN 16 mg/dL (7-18); BUN/Creat Ratio 11.9 RATIO (10-20); Calcium,Total 8.7 mg/dL (8.5-10.1); Chloride 108 mmol/L (98-107); Creatinine, Serum 1.34 mg/dL (0.70-1.30); EST Glomerular Filtration Rate 57 mL/min (>60); Est Glom Filt Rate - Afr Amer 69 mL/min (>60); Estimated Creatinine Clearance 56.43 ml/min; Globulin 4.1 g/dL (2.2-4.2); Glucose 91 mg/dL (74-106); Potassium 4.4 mmol/L (3.5-5.1); Protein, Total 7.7 g/dL (6.4-8.2); Sodium Level 141 mmol/L (136-145)
--- NOTE | 2019-03-11 15:15 | ED.RN ---
PT ASKED FOR WATER, PER DR. SANTIAGO, PT IS OKAY TO HAVE WATER BUT NEEDS TO BE OBSERVED WHILE DRINKING WITH FIRST DRINK.
--- NOTE | 2019-03-11 15:30 | ED.RN ---
THIS RN OBSERVED PT WITH WATER, PT SHOWED NO SIGNS OF SWALLOWING ISSUES.
--- NOTE | 2019-03-11 16:04 | HP.PCM_ITS ---
History of Present Illness Date of Admission: 03/11/19 Chief Complaint: confusion The patient is a 63 year old M with an extensive past medical history as listed which includes a left-sided acute ischemic stroke in 2017 with residual right- sided hemiplegia. He was admitted through the ED on 03/11/2019 with a complaint of confusion. states she noted that he had become more confused for about 1 day and she thought he was having some difficulty saying what he wanted to say. He had also had associated nausea and vomiting as well as diarrhea since one day prior to admission and she also noted that the tip of his penis was reddish. She was concerned the patient was urinating more often than usual and he was having burning with urination. He had no new onset weakness or numbness or tingling and she did not notice any mouth droop or slurred speech. Review of systems was otherwise negative. In the ED, vitals were significant for respiratory rate of 24, pulse rate of 51 and he was afebrile. CBC showed white cell count of 12 and BMP showed creatinine of 1.34. Brain CT showed no acute intracranial process and only showed stable encephalomalacia involving the left frontal temporal parietal lobes. He has been admitted to be managed for acute metabolic encephalopathy likely due to gastroenteritis and UTI. 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 tract infection (Chronic) +MRSA Anemia (Chronic) Dysphagia (Chronic) Medical History: Medical History (Last Reviewed 12/04/18 @ 13:40 by Eva Mederos) Stroke (Acute) I63.9 Smoker (Chronic) F17.200 Carotid artery disease (Chronic) I77.9 Cerebral arterial aneurysm (Chronic) I67.1 Sepsis (Resolved) A41.9 CAD (coronary artery disease) (Chronic) I25.10 5 vessel bypass 3.28.17 Afib (Chronic) I48.91 Left acute arterial ischemic stroke, MCA (middle cerebral artery) (Chronic) I63.512 3.29.17 HTN (hypertension) (Chronic) I10 Hyperlipidemia (Chronic) E78.5 Respiratory failure (Chronic) J96.90 Lower resp. tract infection (Chronic) J22 +MRSA Anemia (Chronic) D64.9 Dysphagia (Chronic) R13.10 Debility (Acute) R53.81 Aphasia as late effect of stroke (Acute) I69.320 Allergies lisinopril Allergy (Verified 03/11/19 13:04) Unknown Sulfa (Sulfonamide Antibiotics) Allergy (Verified 03/11/19 13:04) Rash Home Medications: Ambulatory Orders Medication Instructions Recorded Amlodipine [Norvasc] 5 mg PO BID 12/21/16 Apixaban [Eliquis] 5 mg PO BID 12/21/16 Atorvastatin Calcium [Lipitor] 40 mg PO QHS 12/21/16 Clopidogrel Bisulfate [Plavix] 75 mg PO DAILY 12/21/16 Famotidine [Pepcid] 20 mg PO QHS 12/21/16 Baclofen [Lioresal] 5 mg PO TID tab 02/05/17 Escitalopram Oxalate [Lexapro] 10 mg PO DAILY tab 02/05/17 Metoprolol Tartrate [Lopressor 25 mg PO BID tab 02/05/17 (beta flavia)] fluticasone propionate 50 2 spray INTRANASAL DAILY PRN PRN 12/04/18 mcg/actuation nasal spray,suspension hydrochlorothiazide 12.5 mg tablet 12.5 mg PO DAILY 12/04/18 multivitamin,ne-sfrq-mtuclktr 1 tab PO DAILY 12/04/18 tablet Amiodarone HCl 200 mg PO DAILY 03/11/19 Loratadine 10 mg PO DAILY 03/11/19 Lorazepam [Ativan] 0.5 mg PO BID 03/11/19 Potassium Chloride [Klor-Con 10] 20 meq PO TID 03/11/19 Trazodone HCl 50 mg PO QHS 03/11/19 Surgical History: coronary bypass surgery, - - Tracheostomy and PEG tube. Lives: Spouse/ Significant Other Smoking Status: Former smoker Tobacco Use: Cigarettes Alcohol: None Drugs: None - *Family History Maternal History Items: Stroke Paternal History Items: - - Aneurysm Review of Systems Constitutional: Denies: Chills, Fever, Malaise, Weakness, Weight Change Eyes: Denies: Blurred vision HEENT: Denies: Head Aches, Sinus Congestion, Sinus Drainage Cardiovascular: Denies: Chest Pain, Palpitations Respiratory: Denies: Cough, Shortness of breath at rest, Sputum production Gastrointestinal: Denies: Abdominal Pain, Nausea, Vomiting Genitourinary: Reports: Frequency. Denies: Dysuria, Hematuria, Hesitancy, Incontinence, Urgency Musculoskeletal: Denies: Joint Pain, Joint Tenderness Skin: Denies: Rash, Wounds Neurological: Reports: Change in Speech - this is chronic, Confusion. Denies: Balance problems, Focal weakness, Incoordination, Numbness, Tingling Psychiatric: Denies: Anxiety, Depression, Homicidal Ideations, Suicidal Ideatio ns Hematologic/ Lymphatic: Denies: Easy Bruising, Easy Bleeding VTE Information - Inpt Only VTE Present on Admission: No VTE Pharm Prophylaxis ordered?: Yes Patient Problems: Active and Suspected Problems (Last Reviewed 12/04/18 @ 13:40 by Eva Mederos) Confusion (Acute) - Physical Exam General: Alert, Cooperative, Confused HEENT: Atraumatic, PERRLA, EOMI, Normocephalic Oral: Dry Mucosa Neck: Supple, No JVD, Negative Carotid Bruits Lungs: Clear to auscultation, Normal air movement, No rhonchi, No wheeze, No rales Cardiovascular: Regular Rhythm, Normal S1, Normal S2, No murmurs, Bradycardic Abdomen: Bowel Sounds Present, Soft, Non Tender, Non-Distended, No Hepato- splenomegaly Extremities: No clubbing, No cyanosis, No edema, Capillary Refill Less than 3 Seconds Skin: No rashes, No breakdown Musculoskeletal: No Tenderness to Palpation of Joints or Extremities Lymphatic: No Cervical, Supraclavicular, or Inguinal Adenopathy Neurological: - - right hemiplegia, which is chronic; mild expressive aphasia, which is also chronic Psych/Mental Status: Normal Affect, Appropriate Vital Signs Temp Pulse Resp BP Pulse Ox 97.7 F L 52 L 16 154/57 H 94 03/11/19 13:04 03/11/19 13:04 03/11/19 13:04 03/11/19 13:04 03/11/19 13:04 Oxygen Delivery Method Room Air Weight: 190 lb 3.2 oz Body Mass Index (BMI) 28.0 Finger Stick Blood Glucose 134 Laboratory Tests Past 24 Hrs 03/11/19 03/11/19 13:50 13:50 WBC 12.0 H RBC 4.46 L Hgb 12.1 L Hct 38.9 L MCV 87.2 MCH 27.1 MCHC 31.1 L RDW Std Deviation 47.1 H RDW Coeff of Makayla 15.0 H Plt Count 287 MPV 10.5 Immature Gran % (Auto) 1.400 H Neut % (Auto) 57.3 Lymph % (Auto) 20.5 Creek % (Auto) 13.0 H Eos % (Auto) 7.1 H Baso % (Auto) 0.7 Absolute Neuts (auto) 6.9 Absolute Lymphs (auto) 2.46 Nucleated RBC % 0.2 Diff Path Review December Sodium 141 Potassium 4.4 Chloride 108 H Carbon Dioxide 28.0 Anion Gap 5 BUN 16 Creatinine 1.34 H Estim Creat Clear Calc 56.43 Est GFR (MDRD) Af Amer 69 Est GFR (MDRD) Non-Af 57 L BUN/Creatinine Ratio 11.9 Glucose 91 Calcium 8.7 Total Bilirubin 0.70 Direct Bilirubin 0.20 AST 34 ALT 55 Alkaline Phosphatase 164 H Troponin I < 0.015 Total Protein 7.7 Albumin 3.6 Globulin 4.[address] 03/11/19 13:19 IMPRESSION: Chronic involutional changes of the brain. Stable encephalomalacia involving the left frontal temporal parietal lobes. No acute abnormality is seen. Electronically Signed: Peter Soto, at 14:34 EDT , Service support , Chest X-Ray 03/11/19 13:25 IMPRESSION: No acute abnormality is seen. Electronically Signed: Peter Soto, at 14:06 EDT , Service support , Assessment/Plan All Active Problems (Last Reviewed 12/04/18 @ 13:40 by Eva Mederos) Confusion (Acute) Stroke (Acute) Sepsis (Resolved) Debility (Acute) Aphasia as late effect of stroke (Acute) Tracheostomy dependence (Resolved) 60-year-old male admitted with a complaint of confusion. 1. Acute metabolic encephalopathy likely due to gastroenteritis * Admit to PCU with telemetry under observation. * Hydrate with IV fluid normal saline * Check C. difficile if diarrhea persists. Will hold off on further stool studies for now. * Fall precautions. * Patient has CT of the brain which showed no acute intracranial pathology. Based on history and examination, I am not convinced that there is any evidence of a stroke as patient does not have any new onset weakness and numbness or tingling and his speech problem according to his is chronic. She just thought he was more confused today than usual which can be explained by the gastroenteritis and probable UTI. * Will hold off on getting any further brain imaging for now. * UA showed no evidence of UTI * PT/OT consult * 2. Acute gastroenteritis: * Hydrate with IVF NS. * check C Diff if diarrhea recurs * mild leucocytosis of 12 likely reactive, so will hold off on antibiotics for now and monitor * 3. Afib * currently mildly bradycardic. * On amiodarone and Eliquis. Also on metoprolol. * Has mildly symptomatic bradycardia. Will monitor. * 4. History of CVA with right residual hemiplegia: on plavix and statin. 5. Hypertension: on amlodipine, HCTZ and metoprolol. 6. Hyperlipidemia: on Atorvastatin GERD: on famotidine DVT prophylaxis: on eliquis Code Visit OBSV E&M: [id number] Initial observation care L3
[2019-03-11 16:33] LABS: Bacteria 0 SEEN /hpf (None Seen); Mucous, Urine 0 SEEN /hpf (<or=2+); Red Blood Cells-Urine 0 SEEN /hpf (0-5); Squamous Epithelial Cells - UA 0 SEEN /hpf (0-5)
[2019-03-11 16:44] LABS: Color, Urine Yellow (Yellow); Glucose, Dipstick Normal (Normal); Ketone-Dipstick Negative (Negative); Leukocyte Esterase-Dipstick 500 /ul (Negative); Nitrite-Dipstick Negative (Negative); Occult Blood-Urine Negative /ul (Negative); Protein-Dipstick Negative (Negative); Urine Bilirubin Dipstick Negative (Negative); Urine Clarity Clear (Clear); Urine Urobilinogen Normal (Normal); Urine pH 6.5 (5.0 - 8.0)
[2019-03-11 17:05] LABS: White Blood Cells 0-5 SEEN /hpf (0-5)
[2019-03-11] MEDS: Baclofen 10 MG Tablet 5 MG PO (23:02)
[2019-03-11] MEDS: APIXABAN 5 MG TABLET PO (23:02)
[2019-03-11] MEDS: LORazepam 0.5 MG Tablet PO (23:02)
[2019-03-11] MEDS: traZODone 50 MG Tablet PO (23:02)
[2019-03-11] MEDS: Atorvastatin Calcium 40 MG Tablet PO (23:03)
[2019-03-11] MEDS: Famotidine 20 MG Tablet PO (23:03)
[2019-03-11] MEDS: amLODIPine 5 MG Tablet PO (23:03)
[2019-03-12] VITALS (9 sets, daily range): BP systolic 122–163; BP diastolic 56–70; PULSE 40–59; RESP 18; TEMP 36.5–36.9; O2SAT 87–94
[2019-03-12] MEDS: 0.9% Normal Saline 1,000 ML 150 ML IV (04:43)
[2019-03-12] MEDS: Baclofen 10 MG Tablet 5 MG PO ×2 (05:34→13:46)
[2019-03-12 05:57] LABS: Absolute Lymphocyte Count 2.19 X10^3/uL (0.83-4.51); Absolute Neutrophil Count 5.2 X10^3/uL (2.0-7.7); Basophil# 0.08 X10^3/uL; Basophil% 0.9 % (0-1); Eosinophil# 0.63 X10^3/uL; Eosinophils% 6.7 % (0-5); Hematocrit 34.3 % (40-54); Hemoglobin 10.8 g/dL (13.0-16.5); Lymphocyte # 2.19 X10^3/ul (4.0); Lymphocyte % 23.3 % (19-41); Mean Corp Hgb Conc 31.5 g/dL (32-36); Mean Corpuscular Hgb 27.2 pg (27.0-32.0); Mean Corpuscular Volume 86.4 fL (80-94); Mean Platelet Vol. 10.6 fl (6.2-12.0); Monocyte# 1.15 X10^3/uL; Monocyte% 12.3 % (0-10); NRBC Flagged by Analyzer 0.2 % (0-5); Neutrophil # 5.21 X10^3/uL (2.7-7.7); Neutrophil % 55.5 % (47-70); Platelet Count 230 K/mm3 (150-450); RBC Distribution Width CV 15.2 % (11.6-14.6); RBC Distribution Width SD 47.3 fl (35.1-43.9); Red Blood Count 3.97 M/mm3 (4.6-6.2); White Blood Count 9.4 K/mm3 (4.4-11.0)
[2019-03-12 06:24] LABS: Anion Gap 5 (5-15); BUN 13 mg/dL (7-18); BUN/Creat Ratio 12.5 RATIO (10-20); Chloride 111 mmol/L (98-107); Creatinine, Serum 1.04 mg/dL (0.70-1.30); EST Glomerular Filtration Rate 77 mL/min (>60); Est Glom Filt Rate - Afr Amer 93 mL/min (>60); Glucose 89 mg/dL (74-106); Potassium 4.1 mmol/L (3.5-5.1); Sodium Level 143 mmol/L (136-145)
[2019-03-12] MEDS: Multivitamins,Ther W-Minerals Tablet 1 TABLET PO (08:35)
[2019-03-12] MEDS: LORazepam 0.5 MG Tablet PO (08:36)
[2019-03-12] MEDS: APIXABAN 5 MG TABLET PO (10:20)
[2019-03-12] MEDS: Loratadine 10 MG Tablet PO (10:20)
[2019-03-12] MEDS: hydroCHLOROthiazide 6.25mg TAB 12.5 MG PO (10:20)
[2019-03-12] MEDS: Clopidogrel Bisulfate 75 MG Tablet PO (10:20)
[2019-03-12] MEDS: Escitalopram Oxalate 10 MG Tablet PO (10:21)
[2019-03-12] MEDS: amLODIPine 5 MG Tablet PO (10:21)
--- NOTE | 2019-03-12 11:20 | DCINST_ITS ---
- Discharge Diagnoses Current Active Problems: Current Active and Chronic Problems (Last Reviewed 12/04/18 @ 13:40 by Eva Mederos) Confusion (Acute) You will use the following diet at home:: Cardiac Your food should be the consistency of: Regular Your liquids should be the consistency of: Regular/Thin Discharge Activity: Return to Normal Activity Allergies/Adverse Reactions: Allergies lisinopril Allergy (Verified 03/11/19 13:04) Unknown Sulfa (Sulfonamide Antibiotics) Allergy (Verified 03/11/19 13:04) Rash Medications to take at Discharge Amlodipine [Norvasc] 5 mg PO BID 12/21/16 Apixaban [Eliquis] 5 mg PO BID 12/21/16 Atorvastatin Calcium [Lipitor] 40 mg PO QHS 12/21/16 Clopidogrel Bisulfate [Plavix] 75 mg PO DAILY 12/21/16 Famotidine [Pepcid] 20 mg PO QHS 12/21/16 Baclofen [Lioresal] 5 mg PO TID tab 02/05/17 Escitalopram Oxalate [Lexapro] 10 mg PO DAILY tab 02/05/17 fluticasone propionate 50 mcg/actuation nasal spray,suspension 2 spray INTRANASAL DAILY PRN PRN 12/04/18 hydrochlorothiazide 12.5 mg tablet 12.5 mg PO DAILY 12/04/18 multivitamin,kl-sfqj-kioxwyqf tablet 1 tab PO DAILY 12/04/18 Loratadine 10 mg PO DAILY 03/11/19 Lorazepam [Ativan] 0.5 mg PO BID 03/11/19 Potassium Chloride [Klor-Con 10] 20 meq PO TID 03/11/19 Trazodone HCl 50 mg PO QHS 03/11/19 Amiodarone HCl [Cordarone] 100 mg PO DAILY tab 03/12/19 Metoprolol Tartrate [Lopressor (beta flavia)] 12.5 mg PO BID tab 03/12/19 Primary Care Physician: Conrad Arroyo MD [Primary Care Provider] - Please follow up with your Primary Care Physician in: 1-2 weeks Test Results: Test results from this visit will be discussed in further detail at your follow- up appointment, if applicable. Please Follow Up With: Cardiology - [facility] When: 2 weeks Please Follow Up With: Edmund La MD When: as directed Proposed Discharge Date: 03/12/19
--- NOTE | 2019-03-12 12:18 | PCM.DC.SUM ---
<Felipe Diego - Last Filed: 03/12/19 12:18> Discharge Date and Diagnosis - Problem List Patient Problems: Active and Suspected Problems (Last Reviewed 12/04/18 @ 13:40 by Eva Mederos) Confusion (Acute) Date of Admission: 03/11/19 - Primary Discharge Diagnosis Active and Suspected Problems (Last Reviewed 12/04/18 @ 13:40 by Eva Mederos) Acute metabolic encephalopathy 2/2 gastroenteritis Bradycardia 2/2 polypharmacy Penile lesion Atrial fibrillation Pacemaker in place Prior CVA with residual right-sided hemiplegia Hypertension Hyperlipidemia GERD - Secondary Discharge Diagnosis Chronic Problems (Last Reviewed 12/04/18 @ 13:40 by Eva Mederos) Allergic rhinitis (Chronic) 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 tract infection (Chronic) +MRSA Anemia (Chronic) Dysphagia (Chronic) Hospital Course and Treatment Imaging Results: CT/Brain/Head without Contrast IMPRESSION: Chronic involutional changes of the brain. Stable encephalomalacia involving the left frontal temporal parietal lobes. No acute abnormality is seen. RAD/Chest 1 View (Portable) IMPRESSION: No acute abnormality is seen. Consults: Abhinav - urology Operations: None Procedures: None Summary of Care Provided: Hospital course: The patient is a 63 year old M with past medical history of prior CVA with ongoing right-sided weakness and aphasia, hypertension, hyperlipidemia, GERD, who presented to the emergency room with confusion. Patient has severe expressive aphasia so history was primarily from the . She reported that he was having increased difficulty saying words he wanted to say. CT of the brain did not show any acute process-chronic encephalomalacia. He also had complaints of diarrhea and a reddish lesion on the tip of his penis, and she reported that he was urinating more often with burning with urination. He had a mild white blood cell elevation, mild increase in creatinine. He was felt to have acute metabolic encephalopathy secondary to gastroenteritis. He was admitted and placed on IV fluids and supportive care. His urinalysis was negative. He also had some bradycardia with his rate staying in the 40s. . His felt that he was back to his normal self the next day. Urology was consulted regarding the lesion on his penis-pending at this time. For his bradycardia we decreased his amiodarone and metoprolol dose. He plans to follow-up with [facility] in 2 weeks. He will also need follow up with his PCP in 1-2 weeks, and urology as directed. This patient was seen by Felipe Diego PA-C under the supervision of Doctor Pappas. [] Patient Problems: Active and Suspected Problems (Last Reviewed 12/04/18 @ 13:40 by Eva Mederos) Confusion (Acute) - Physical Exam General: Alert, Oriented x3, Cooperative, No apparent distress HEENT: Atraumatic, PERRLA, EOMI, Normocephalic Neck: Supple, No JVD, Negative Carotid Bruits Lungs: Clear to auscultation, Normal air movement Cardiovascular: Regular rate, No murmurs Abdomen: Bowel Sounds Present, Soft, Non Tender Extremities: No edema, Capillary Refill Less than 3 Seconds Skin: No rashes, No breakdown Musculoskeletal: No Tenderness to Palpation of Joints or Extremities Neurological: Cranial nerves II-XII grossly intact, - - aphasia Psych/Mental Status: Normal Affect, Appropriate, Alert and oriented to time, place, person, mood and affect Vital Signs Temp Pulse Resp BP Pulse Ox 98.4 F 51 L 18 163/70 H 87 03/12/19 10:30 03/12/19 10:30 03/12/19 10:30 03/12/19 10:30 03/12/19 11:00 Oxygen Flow Rate (L/min) 2 Oxygen Delivery Method Nasal Cannula Weight: 190 lb 0.615 oz Body Mass Index (BMI) 28.0 Finger Stick Blood Glucose 134 Intake and Output for Last 24 Hours 03/10/19 03/11/19 03/12/19 23:59 23:59 23:59 Intake Total 1627 / 1627 590 / 590 Output Total 1000 / 1000 575 / 575 Balance 627 / 627 15 15 Laboratory Tests Past 24 Hrs 03/11/19 03/11/19 03/11/19 13:50 13:50 16:20 WBC 12.0 H RBC 4.46 L Hgb 12.1 L Hct 38.9 L MCV 87.2 MCH 27.1 MCHC 31.1 L RDW Std Deviation 47.1 H RDW Coeff of Makayla 15.0 H Plt Count 287 MPV 10.5 Immature Gran % (Auto) 1.400 H Neut % (Auto) 57.3 Lymph % (Auto) 20.5 [place] % (Auto) 13.0 H Eos % (Auto) 7.1 H Baso % (Auto) 0.7 Absolute Neuts (auto) 6.9 Absolute Lymphs (auto) 2.46 Nucleated RBC % 0.2 Diff Path Review May foll Sodium 141 Potassium 4.4 Chloride 108 H Carbon Dioxide 28.0 Anion Gap 5 BUN 16 Creatinine 1.34 H Estim Creat Clear Calc 56.43 Est GFR (MDRD) Af Amer 69 Est GFR (MDRD) Non-Af 57 L BUN/Creatinine Ratio 11.9 Glucose 91 Calcium 8.7 Total Bilirubin 0.70 Direct Bilirubin 0.20 AST 34 ALT 55 Alkaline Phosphatase 164 H Troponin I < 0.015 Total Protein 7.7 Albumin 3.6 Globulin 4.1 Urine Color Yellow Urine Clarity Clear Urine pH 6.5 Ur Specific [place] 1.010 Urine Protein Negative Urine Glucose (UA) Normal Urine Ketones Negative Urine Occult Blood Negative Urine Nitrite Negative Urine Bilirubin Negative Urine Urobilinogen Normal Ur Leukocyte Esterase 500 H Urine RBC 0 SEEN Urine WBC 0-5 SEEN Ur Squamous Epith Cells 0 SEEN Urine Bacteria 0 SEEN Urine Mucus 0 SEEN 03/12/19 03/12/19 05:40 05:40 WBC 9.4 RBC 3.97 L Hgb 10.8 L Hct 34.3 L MCV 86.4 MCH 27.2 MCHC 31.5 L RDW Std Deviation 47.3 H RDW Coeff of Makayla 15.2 H Plt Count 230 MPV 10.6 Immature Gran % (Auto) 1.300 H Neut % (Auto) 55.5 Lymph % (Auto) 23.3 [place] % (Auto) 12.3 H Eos % (Auto) 6.7 H Baso % (Auto) 0.9 Absolute Neuts (auto) 5.2 Absolute Lymphs (auto) 2.19 Nucleated RBC % 0.2 Diff Path Review Sodium 143 Potassium 4.1 Chloride 111 H Carbon Dioxide 27.0 Anion Gap 5 BUN 13 Creatinine 1.04 Estim Creat Clear Calc 72.70 Est GFR (MDRD) Af Amer 93 Est GFR (MDRD) Non-Af 77 BUN/Creatinine Ratio 12.5 Glucose 89 Calcium 8.0 L Total Bilirubin Direct Bilirubin AST ALT Alkaline Phosphatase Troponin I Total Protein Albumin Globulin Urine Color Urine Clarity Urine pH Ur Specific [place] Urine Protein Urine Glucose (UA) Urine Ketones Urine Occult Blood Urine Nitrite Urine Bilirubin Urine Urobilinogen Ur Leukocyte Esterase Urine RBC Urine WBC Ur Squamous Epith Cells Urine Bacteria Urine Mucus Discharge Diet: Low fat/ Low Cholesterol, 2000 mg Sodium Diet Discharge Activity: Return to Normal Activity Home Medications: Medications to take at Discharge Amlodipine [Norvasc] 5 mg PO BID 12/21/16 Apixaban [Eliquis] 5 mg PO BID 12/21/16 Atorvastatin Calcium [Lipitor] 40 mg PO QHS 12/21/16 Clopidogrel Bisulfate [Plavix] 75 mg PO DAILY 12/21/16 Famotidine [Pepcid] 20 mg PO QHS 12/21/16 Baclofen [Lioresal] 5 mg PO TID tab 02/05/17 Escitalopram Oxalate [Lexapro] 10 mg PO DAILY tab 02/05/17 fluticasone propionate 50 mcg/actuation nasal spray,suspension 2 spray INTRANASAL DAILY PRN PRN 12/04/18 hydrochlorothiazide 12.5 mg tablet 12.5 mg PO DAILY 12/04/18 multivitamin,te-gnue-oiwbrljm tablet 1 tab PO DAILY 12/04/18 Loratadine 10 mg PO DAILY 03/11/19 Lorazepam [Ativan] 0.5 mg PO BID 03/11/19 Potassium Chloride [Klor-Con 10] 20 meq PO TID 03/11/19 Trazodone HCl 50 mg PO QHS 03/11/19 Amiodarone HCl [Cordarone] 100 mg PO DAILY tab 03/12/19 Metoprolol Tartrate [Lopressor (beta flavia)] 12.5 mg PO BID tab 03/12/19 Nystatin 15 gm TP BID 7 Days #1 cream..g. 03/12/19 Following Prescrptions Were Given to Patient: Nystatin 15 gm TP BID 7 Days #1 cream..g. Transmission Status: Received by [facility] Primary Care Physician: Conrad Arroyo MD [Primary Care Provider] - Please follow up with your Primary Care Physician in: 1-2 weeks Please Follow Up With: Cardiology - [facility] When: 2 weeks Please Follow Up With: Edmund La MD When: as directed Disposition: Home Minutes spent on discharge:: 35 Patient Condition:: Stable Medical Necessity - Tobacco Use Smoking Status: Former smoker Tobacco Use: Cigarettes Meaningful Use Info Meaningful Use Diagnoses (Choose all that apply): None applicable <Joselo Pappas - Last Filed: 03/12/19 15:05> Discharge Date and Diagnosis Date of Discharge: 03/12/19 - Primary Discharge Diagnosis Active and Suspected Problems (Last Reviewed 12/04/18 @ 13:40 by Eva Mederos) Confusion (Acute) - Secondary Discharge Diagnosis Chronic Problems (Last Reviewed 12/04/18 @ 13:40 by Eva Mederos) Allergic rhinitis (Chronic) 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 tract infection (Chronic) +MRSA Anemia (Chronic) Dysphagia (Chronic) Hospital Course and Treatment Summary of Care Provided: This patient was seen in conjunction with Felipe TIDWELL. I have independently interviewed and examined the patient and reviewed pertinent history, examination findings, laboratory and plan of management. I have reviewed the note and agree with the documented findings with the few additional points. In brief, patient is admitted for for 1 to 2 days of confusion as per the . Patient has difficulty in expression and history mainly taken from the . UA shows WBC 0-5 but no nitrite, 0 bacteria, 0 RBC negative nitrite and LE 500. Urine culture ordered. Patient is not able to tell about lower urinary tract symptoms and is aphasic. Patient also found hypoxic which got letter corrected to 91% on room air on ambulation. Bradycardia also improved. Advised to hold metoprolol and amiodarone if heart rate is less than 60/min, dosages have been decreased. Metoprolol decreased to 12.5 mg twice daily and amiodarone 100 mg daily. Patient also has reddish lesion on the glans penis. Urologist was consulted and he thinks this is a yeast infection. Nystatin cream twice daily advised for 7 days. Discharge medication reconciliation done. Discharge follow-up instructions completed. Discharge process discussed with the patient and all questions were answered to patient's satisfaction.. Total time spent, exact 35 minutes on discharge meds reconciliation, examination, review of imaging and blood test and discussion with the patient on follow-up instructions. I have discussed my assessment with Felipe TIDWELL and orders have been reviewed. Laboratory Results 03/11/19 13:50: Diff Path Review Reviewed 03/11/19 16:20: Urine Color Yellow, Urine Clarity Clear, Urine pH 6.5, Ur Specific [place] 1.010, Urine Protein Negative, Urine Glucose (UA) Normal, Urine Ketones Negative, Urine Occult Blood Negative, Urine Nitrite Negative, Urine Bilirubin Negative, Urine Urobilinogen Normal, Ur Leukocyte Esterase 500 H, Urine RBC 0 SEEN, Urine WBC 0-5 SEEN, Ur Squamous Epith Cells 0 SEEN, Urine Bacteria 0 SEEN, Urine Mucus 0 SEEN 03/12/19 05:40: WBC 9.4, RBC 3.97 L, Hgb 10.8 L, Hct 34.3 L, MCV 86.4, MCH 27.2, MCHC 31.5 L, RDW Std Deviation 47.3 H, RDW Coeff of Makayla 15.2 H, Plt Count 230, MPV 10.6, Immature Gran % (Auto) 1.300 H, Neut % (Auto) 55.5, Lymph % (Auto) 23.3, [place] % (Auto) 12.3 H, Eos % (Auto) 6.7 H, Baso % (Auto) 0.9, Absolute Neuts (auto) 5.2, Absolute Lymphs (auto) 2.19, Nucleated RBC % 0.2 03/12/19 05:40: Sodium 143, Potassium 4.1, Chloride 111 H, Carbon Dioxide 27.0, Anion Gap 5, BUN 13, Creatinine 1.04, Estim Creat Clear Calc 72.70, Est GFR (MDRD) Af Amer 93, Est GFR (MDRD) Non-Af 77, BUN/Creatinine Ratio 12.5, Glucose 89, Calcium 8.0 L [] Subjective: Seen and examined. Patient is alert awake and oriented. Patient is aphasic. Discussed with the in detail. Patient has a major stroke and after that he is aphasic mainly motor aphasia but he understands, hard to determine how much. Initially, patient's felt that he is confused for a day or two. UA is negative. As the patient is aphasic much of the history taken from the . Patient also found hypoxic, 87% on room air and was supplemented with oxygen but later it got corrected to 91% on room air on ambulation Patient also found bradycardic, heart rate in 40s which went up to 60 after holding the metoprolol and amiodarone - Physical Exam General: Alert, Oriented x3, Cooperative HEENT: Atraumatic, PERRLA, EOMI, Normocephalic Neck: Supple, No JVD, Negative Carotid Bruits Lungs: Clear to auscultation, Normal air movement Cardiovascular: Regular rate, Normal S2, No murmurs, Bradycardic Abdomen: Bowel Sounds Present, Soft, Non Tender, Non-Distended Extremities: No edema, Capillary Refill Less than 3 Seconds Skin: No rashes, No breakdown Musculoskeletal: No Tenderness to Palpation of Joints or Extremities, Arthritic Changes Neurological: Cranial nerves II-XII grossly intact, - - aphasia he does not follow commands to hold the legs. Patient walks on walker/cane. Psych/Mental Status: Normal Affect, Appropriate Vital Signs Temp Pulse Resp BP Pulse Ox 98.4 F 59 L 18 163/70 H 89 03/12/19 10:30 03/12/19 12:44 03/12/19 10:30 03/12/19 10:30 03/12/19 12:11 Oxygen Flow Rate (L/min) 2 Oxygen Delivery Method Nasal Cannula Weight: 190 lb 0.615 oz Body Mass Index (BMI) 28.0 Finger Stick Blood Glucose 134 Intake and Output for Last 24 Hours 03/10/19 03/11/19 03/12/19 23:59 23:59 23:59 Intake Total 1627 / 1627 590 / 590 Output Total 1000 / 1000 575 / 575 Balance 627 / 627 Laboratory Tests Past 24 Hrs 03/11/19 03/11/19 03/12/19 13:50 16:20 05:40 WBC 9.4 RBC 3.97 L Hgb 10.8 L Hct 34.3 L MCV 86.4 MCH 27.2 MCHC 31.5 L RDW Std Deviation 47.3 H RDW Coeff of Makayla 15.2 H Plt Count 230 MPV 10.6 Immature Gran % (Auto) 1.300 H Neut % (Auto) 55.5 Lymph % (Auto) 23.3 [place] % (Auto) 12.3 H Eos % (Auto) 6.7 H Baso % (Auto) 0.9 Absolute Neuts (auto) 5.2 Absolute Lymphs (auto) 2.19 Nucleated RBC % 0.2 Diff Path Review Reviewed Sodium Potassium Chloride Carbon Dioxide Anion Gap BUN Creatinine Estim Creat Clear Calc Est GFR (MDRD) Af Amer Est GFR (MDRD) Non-Af BUN/Creatinine Ratio Glucose Calcium Urine Color Yellow Urine Clarity Clear Urine pH 6.5 Ur Specific [place] 1.010 Urine Protein Negative Urine Glucose (UA) Normal Urine Ketones Negative Urine Occult Blood Negative Urine Nitrite Negative Urine Bilirubin Negative Urine Urobilinogen Normal Ur Leukocyte Esterase 500 H Urine RBC 0 SEEN Urine WBC 0-5 SEEN Ur Squamous Epith Cells 0 SEEN Urine Bacteria 0 SEEN Urine Mucus 0 SEEN 03/12/19 05:40 WBC RBC Hgb Hct MCV MCH MCHC RDW Std Deviation RDW Coeff of Makayla Plt Count MPV Immature Gran % (Auto) Neut % (Auto) Lymph % (Auto) [place] % (Auto) Eos % (Auto) Baso % (Auto) Absolute Neuts (auto) Absolute Lymphs (auto) Nucleated RBC % Diff Path Review Sodium 143 Potassium 4.1 Chloride 111 H Carbon Dioxide 27.0 Anion Gap 5 BUN 13 Creatinine 1.04 Estim Creat Clear Calc 72.70 Est GFR (MDRD) Af Amer 93 Est GFR (MDRD) Non-Af 77 BUN/Creatinine Ratio 12.5 Glucose 89 Calcium 8.0 L Urine Color Urine Clarity Urine pH Ur Specific [place] Urine Protein Urine Glucose (UA) Urine Ketones Urine Occult Blood Urine Nitrite Urine Bilirubin Urine Urobilinogen Ur Leukocyte Esterase Urine RBC Urine WBC Ur Squamous Epith Cells Urine Bacteria Urine Mucus Code Visit OBSV E&M: [id number] Observation care discharge
--- NOTE | 2019-03-12 12:47 | NURSING ---
therapy in and ambulated pt to nurses desk and back to room. ambulating pox 90-91% when up. dipped to 89% briefly once but then rt back up. dr. saleem aware. waiting urology to come and see for redness on meatus.
--- NOTE | 2019-03-12 13:13 | CASEMGMT ---
Pt does not qualify for home oxygen at this time and per , after watching pt ambulate with therapy, states pt is at baseline at this time. This RN CM to room and pt/ state no needs at home at this time. states 'He has everything he needs.' Pt/ voices no further questions/concerns/needs at this time. Pt ready for dispo. SStaten DIANE CM
[2019-03-12] MEDS: Nystatin/Triamcin Cream Tube 1 APPLIC TOPICAL (13:47)
[2019-03-12 14:06] LABS: Pathologist Review Reviewed
--- NOTE | 2019-03-12 15:29 | CASEMGMT ---
Received call from Rhina at [facility]. Patient is active with them. KRISTEN let her know about his admission observation status and diagnosis. She thanked KRISTEN for the update. Michelle LOVETT MSW
== END 2019-03-12 11:23 | disposition home or self-care (01) ==
LOC: ED 16:12 → PCU 16:32
PROVIDERS: Admitting Provider Student in an Organized Health Care Education/Training Program; Emergency Provider Emergency Medicine; Family Provider Family Medicine; PCP Family Medicine; Referring Provider Student in an Organized Health Care Education/Training Program; Visit Provider Internal Medicine
DX: G93.41 Metabolic encephalopathy (principal); K52.9 Noninfective gastroenteritis and colitis, unspecified; I69.351 Hemiplegia and hemiparesis following cerebral infarction affecting right dominant side; I25.10 Atherosclerotic heart disease of native coronary artery without angina pectoris; I10 Essential (primary) hypertension; I44.0 Atrioventricular block, first degree; E78.5 Hyperlipidemia, unspecified; J96.10 Chronic respiratory failure, unspecified whether with hypoxia or hypercapnia; I48.2 Chronic atrial fibrillation; I69.320 Aphasia following cerebral infarction; K21.9 Gastro-esophageal reflux disease without esophagitis; F17.210 Nicotine dependence, cigarettes, uncomplicated; Z95.0 Presence of cardiac pacemaker; Z79.899 Other long term (current) drug therapy; Z79.01 Long term (current) use of anticoagulants; Z79.02 Long term (current) use of antithrombotics/antiplatelets; Z86.14 Personal history of Methicillin resistant Staphylococcus aureus infection; Z95.1 Presence of aortocoronary bypass graft
CPT/HCPCS: 36415; 70450; 71045; 80048; 80076; 81001; 84484; 85025; 87086; 87088; 93005; 96360; 96361; 97162; 97166; 99218; 99285; 99406; J7030; G0378

== ENCOUNTER → 2019-04-02 12:49 | Outpatient (REF) | payer MEDICARE, SELFPAY ==
[2019-03-24 15:00] VITALS: BMI 27.6
== END ==
LOC: CVS 12:49
PROVIDERS: Family Provider Family Medicine; PCP Family Medicine; Referring Provider Internal Medicine Cardiovascular Disease; Visit Provider Internal Medicine Cardiovascular Disease
DX: I48.2 Chronic atrial fibrillation (principal); Z95.1 Presence of aortocoronary bypass graft; R41.0 Disorientation, unspecified
CPT/HCPCS: 93270

== ENCOUNTER → 2019-04-09 | Outpatient (CLI) | payer MEDICARE, SELFPAY ==
[2019-03-24 15:00] VITALS: BMI 27.6
--- NOTE | 2019-04-09 12:47 | ECHOD_ITS ---
Reason For Study: S/P CABG, AFIB, HTN, HLD. Procedure This was a 2D Doppler, Color Flow transthoracic echocardiogram. Exam performed in department. Left Ventricle Normal size and thickness. The estimated ejection fraction is 65 %. Stage 2 diastolic dysfunction. No regional wall motion abnormalities noted. Right Ventricle Mildly dilated right ventricle. Normal systolic function. Atria The left atrium is moderately enlarged. The right atrium is mildly enlarged. Normal atrial septum. Mitral Valve The mitral valve is structurally normal. No prolapse or stenosis seen. Mild (1+) mitral valve insufficiency. Tricuspid Valve Normal tricuspid valve. Mild (1+) tricuspid valve insufficiency. Right ventricular systolic pressure estimated to be 36 mmHg. Mild pulmonary hypertension. Aortic Valve Trisinus/trileaflet aortic valve. Pulmonic Valve Normal pulmonic valve. Great Vessels Normal aortic root. Normal arch. Normal inferior vena cava. Inferior vena cava collapse with sniff. Pericardium/Pleural No pericardial effusion. MMode/2D Measurements & Calculations LVIDd: 4.9 cm IVSd: 1.2 cm Ao root diam: 3.2 cm LVIDs: 3.8 cm LVPWd: 1.00 cm RVDd: 3.6 cm FS: 22.8 % LAV(MOD-bp): 93.4 ml LA A4 area: 27.5 cm2 LA dimension(2D): 4.3 cm LAV(MOD-bp) Indexed: 47.0 ml/m2 LAV(MOD-sp2): 85.9 ml LAV(MOD-sp4): 99.3 ml RA A4 area: 20.1 cm2 Time Measurements MV dec time: 0.15 sec Doppler Measurements & Calculations MV E max leonardo: 108.6 cm/sec Lat Peak E' Leonardo: 13.3 cm/sec Med Peak E' Leonardo: 7.1 cm/sec MV A max leonardo: 78.6 cm/sec E/E' lat: 8.2 E/E' med: 15.2 MV E/A: 1.4 Ao V2 max: 114.0 cm/sec LV V1 max: 103.9 cm/sec PA V2 max: 113.1 cm/sec Ao max P.2 mmHg LV V1 max P.3 mmHg Interpretation Summary The estimated ejection fraction is 65 %. Stage 2 diastolic dysfunction. Mildly dilated right ventricle. The left atrium is moderately enlarged. The right atrium is mildly enlarged. Mild (1+) mitral valve insufficiency. Mild (1+) tricuspid valve insufficiency. Right ventricular systolic pressure estimated to be 36 mmHg. Mild pulmonary hypertension. Compared to echo report dated 06/25/2016, no appreciable changes noted. Ordering Physician: Foreign Purcell Referring Physician: Conrad Arroyo Performed By: Marisabel Cooper, LONI, RVT
== END | disposition home or self-care (01) ==
LOC: CVS 12:46
PROVIDERS: Family Provider Family Medicine; PCP Family Medicine; Referring Provider Internal Medicine Cardiovascular Disease; Visit Provider Internal Medicine Cardiovascular Disease
DX: Z95.1 Presence of aortocoronary bypass graft (principal); E78.5 Hyperlipidemia, unspecified; I10 Essential (primary) hypertension; I48.2 Chronic atrial fibrillation
CPT/HCPCS: 93306

== ENCOUNTER 2019-05-06 15:30 | Outpatient (RCR) | payer MEDICARE, MEDICAID, SELFPAY ==
[2018-06-19 14:19] VITALS: BMI 28.7
--- NOTE | 2018-11-05 19:42 | HP.OTREVAL ---
Conrad Arroyo MD, It has been my pleasure to treat ROBERTA ZEE over the last 1 visits for CVA, Ataxia. Please see the progress note below for an update on the occupational therapy plan of care! Subjective: Arrived with , Vicki, and caregiver, Rita. Vicki noted that things at home are going well and they have been using FES. She noted he is still struggling with wiping himself and rinsing under R UE while bathing. She noted he is now bathing himself, able to dress himself, and although at times noted he appears to be fatigued, he is completing on his own. She noted [facility] and [facility] system when appriopriate. Roberta continues to exhibit global aphasia with cognitive related deficits. She and Roberta would like to trial writing with L hand for functional purposes. Objective/Function: Completed reassessment on this date of 11/05/18. Measurements are as follows: Roberta continues to exhibit global aphasia with cognitive related deficits. He is able to follow one- two step directions with visual and verbal cues with as many trials as needed to complete tasks. Roberta is showing increased regulation of tone through use of home FES unit. Active range of motion of shoulder remains minimal but he is able to complete scapular retraction and bicep flexion. Compensations are still present but decreased. He continues to hold breath with active movements of RUE but is showing less signs of lateral leaning to L side to complete tasks. ROM: Shoulder. -Flexion R PROM 0-120, L WFL. -Abduction R PROM 0-100, L WFL. Elbow. -R 0-58 with increased ability to complete release of position without increased inhibition of flexor tone, L WFL. Wrist. -Flexion PROM R 0-75, L WFL. -Extension PROM R 0-65, L WFL. Fingers. -R MF active flexion 50-75 , L WFL. He is able to complete flexion movement with use of increased flexor tone to complete slight movement of fingers to more fisted position but has not active extension of fingers at this time. Passively wrist is able to be moved to neutral position and completed flexion and extension movements. Ataxic movements noted with finger to nose test on L UE but he is able to follow and complete 1-2 step directions for completion of tasks. Additional coordination and ataxic movements noted with finger to thumb tasks on L hand but he attempts to complete. He often completed finger extension with counting tasks instead. Strength. Shoulder. -Flexion R 1/5, L WFL. Elbow. -Flexion 3-/5, L WFL. -Extension R 2-/5, L WFL. Wrist. -Flexion R 2-/5, L WFL. -Extension R 0/5, WFL. Roberta is showing positive signs of decreased tone, but progression is slow. He is able to complete use tripod grasp of L hand to complete tracing of [place], square, and triangle. He completed writing 3x E with decrease size and formation. He will start to trial use of left-handed writing techniques with use of visual and verbal cues as he does often respond well to visual cues and 1x step directions. He would benefit from skilled OT services for 1x weekly appointments for next 12 weeks to continue to address tone management, promoting regaining ROM for RUE, completing following directions and processing tasks, L handed writing techniques, and promote continued progression with RUE as well as LUE to facilitate returning to PLOF. Plan Frequency: 1x/Week Duration: 3 Months Visits in this POC: 12 Plan: continue POC. He is to follow up 1x weekly appointments in which we will be addressing writing with L hand as well as continuing treatment of R hemiplegic UE to promote continuing to regain function. to check with neuologist about Botox to R thumb for tone management. Anticipated Interventions Please do not hesitate to contact me at [phone] by phone or if you have questions or concerns regarding this new plan of care! Sincerely, Amaris Anderson
--- NOTE | 2018-11-07 08:19 | HP.OTREVAL ---
Conrad Arroyo MD, It has been my pleasure to treat ROBERTA ZEE over the last 1 visits for CVA, Ataxia. Please see the progress note below for an update on the occupational therapy plan of care! Subjective: Arrived with , Vicki, and caregiver, Rita. Vicki noted that things at home are going well and they have been using FES. She noted he is still struggling with wiping himself and rinsing under R UE while bathing. She noted he is now bathing himself, able to dress himself, and although at times noted he appears to be fatigued, he is completing on his own. She noted they recently [facility] and [facility] willing to get [facility] system when appriopriate. Roberta continues to exhibit global aphasia with cognitive related deficits. She and Roberta would like to trial writing with L hand for functional purposes. Objective/Function: Completed reassessment on this date of 11/05/18. Measurements are as follows: Roberta continues to exhibit global aphasia with cognitive related deficits. He is able to follow one- two step directions with visual and verbal cues with as many trials as needed to complete tasks. Roberta is showing increased regulation of tone through use of home FES unit. Active range of motion of shoulder remains minimal but he is able to complete scapular retraction and bicep flexion. Compensations are still present but decreased. He continues to hold breath with active movements of RUE but is showing less signs of lateral leaning to L side to complete tasks. ROM: Shoulder. -Flexion R PROM 0-120, L WFL. -Abduction R PROM 0-100, L WFL. Elbow. -R 0-58 with increased ability to complete release of position without increased inhibition of flexor tone, L WFL. Wrist. -Flexion PROM R 0-75, L WFL. -Extension PROM R 0-65, L WFL. Fingers. -R MF active flexion 50-75 , L WFL. He is able to complete flexion movement with use of increased flexor tone to complete slight movement of fingers to more fisted position but has not active extension of fingers at this time. Passively wrist is able to be moved to neutral position and completed flexion and extension movements. Ataxic movements noted with finger to nose test on L UE but he is able to follow and complete 1-2 step directions for completion of tasks. Additional coordination and ataxic movements noted with finger to thumb tasks on L hand but he attempts to complete. He often completed finger extension with counting tasks instead. Strength. Shoulder. -Flexion R 1/5, L WFL. Elbow. -Flexion 3-/5, L WFL. -Extension R 2-/5, L WFL. Wrist. -Flexion R 2-/5, L WFL. -Extension R 0/5, WFL. Roberta is showing positive signs of decreased tone, but progression is slow. He is able to complete use tripod grasp of L hand to complete tracing of [place], square, and triangle. He completed writing 3x E with decrease size and formation. He will start to trial use of left-handed writing techniques with use of visual and verbal cues as he does often respond well to visual cues and 1x step directions. He would benefit from skilled OT services for 1x weekly appointments for next 12 weeks to continue to address tone management, promoting regaining ROM for RUE, completing following directions and processing tasks, L handed writing techniques, and promote continued progression with RUE as well as LUE to facilitate returning to PLOF. Plan Frequency: 1x/Week Duration: 3 Months Visits in this POC: 12 Plan: continue POC. He is to follow up 1x weekly appointments in which we will be addressing writing with L hand as well as continuing treatment of R hemiplegic UE to promote continuing to regain function. to check with neuologist about Botox to R thumb for tone management. Goals - Goals Goal:: Roberta to be (I) to regain at least 20 degrees of AROM for finger flexion and extension as well as flexion and extension of wrist to promote increased ability to complete ADL/IADLs with R UE and increased ability to [facility]c. Goal:: Roberta to increase functional use of R UE to promote increased BUE coordination and use of R UE for self-care tasks (e.g. opening a jar, toilet hygiene) to promote increased ability to complete ADL/IADls at OF. Goal:: Roberta to follow 2 step instructions to complete self-care, functional activities, and HEP with 2-3x visual and verbal cues to promote increased ability to increase use of R UE by d/c. Goal:: Roberta to be mod I with use of visual prompt to complete writing first name with L hand for increased (i) with signature and ability to promote returning increased (i) by end of 6 weeks. Goal:: Roberta to be mod I to complete signing first name 4/5 trials 80% of the time with L UE to promote increased (I) and decreased need for assistance by d/c. Anticipated Interventions Anticipated Interventions: A/AAROM/PROM, Strengthening, Edema Control, Sensory Retraining, Modalities, Orthoses, Joint Protection/Energy Conservation, Ergonomic Education, Dynamic Sitting Balance, Fine Motor Coord/Angelito, Neuro Reeducation, Cognitive Skills, ADL Training, Education re assistive Equipment, Caregiver Training, Home Program, Other Please do not hesitate to contact me at [phone] by phone or if you have questions or concerns regarding this new plan of care! Sincerely, Amaris Anderson
--- NOTE | 2018-12-01 11:09 | HP.PTEVAL_ITS ---
Patient's Visit Information ROBERTA ZEE is a 63 year old M referred to Physical Therapy by Conrad Arroyo MD with a diagnosis of CVA with R sided weakness. Date of Evaluation: 11/05/18 Physical Therapist: Myron Gillette DPT - Visit Plan Frequency: 2x /Week Duration: 4-6 Weeks Plan: Start with core/BLE strength, dynamic balance acivities, functional strengthening. Add in dyanmic balance/perterbation training in aquatic setting periodically. - Subjective Findings: Pt. is here today for his initial evaluation post CVA. Pt. had a CVA ~1 year ago with R sided weakness. Pt. has been seen in PT previously. Pt. has p rogressed with PT and is now walking with a quad cane, but uses WC for longer distances. Pt. has expressive aphasia, but is able to understand all directions. Pt. is here today with his spouse. Spouse reports no recent falls and the patient has been walking in home with out AD, but uses quad cane at home. Pt. has not fallen recently. Pt. denies pain. Spouse is hopeful for patient to be more independent at home, be more steady and to be able to walk better in the community. She would also like him to be able to get up form floor independently. - Objective POSTURE: Pt. has slight flexed posture, RUE flaccid at side, slight subluxation of R shoulder. Pt. is able to maintain proper sitting balance without assistance. PALPATION: Pt. has no pain in RUE or LE. Pt. has decreased sensation in RUE and RLE to light and sharp touch. Decreased DTR on RLE. ROM: Pt. has tight HS bilaterally, tight heel cord bilaterally R worse than L. Pt. has normal knee and hip ROM otherwise. MMT: LLE- 5/5 throughout; RLE- ankle PF 4/5, DF 2-/5; knee flexion 4-/5, knee ext 4-/5; hip- flexon 4-/5, abd 4-/5, ext 4/5; core- fair-. GAIT: Pt. ambulates with quad cane wtih SBA, but has in creased R hip ER to use hip adductors to advance RLE. Pt. has foot drop on RLE, but is able to work around with increased hip circumduction and L lateral lean. Pt. is steve to complete floor transfer with use of chiar and mod A. - Goals Goal 1:: Pt. to be I with HEP. Goal Time Frame: 4-6 Weeks Goal 2:: Pt. to have increased RLE and core strength by 1/2 grade to increase ability to complete all functional mobility. Goal Time Frame: 4-6 Weeks Goal 3:: Pt. to ambulate with RLD unlimited distances GABRIELE with improved pattern allowing for increased independence. Goal Time Frame: 4-6 Weeks Goal 4:: Pt. have increased TUG score to 10sec indicating increased stability wtih functional mobility. Goal Time Frame: 4-6 Weeks Goal 5:: Pt. to have incerased FGA to 20/30 indicating increased stability in stance and dynamic mobility. Goal Time Frame: 4-6 Weeks - Rehabilitation Potential Physical Therapy Diagnosis: Pt. has signs and symptoms consistent wtih CVA and R sided weakness effecting his gait, balance and functional mobility. Pt. would benefit from PT to address above limitations progressing to greater independence with all fucntional mobility. Rehabilitation Potential: Good - Anticipated Interventions Patient/Client Instruction: Educate patient on: Condition, Plan of Care, Risk Factors, Benefits of Fitness Program For the Purpose of:: To improve decision making, To facilitate caregiver knowledge, To improve self management, To prevent re-injury, To improve ability to perform tasks related to life management, To improve tolerance to ADL's Therapeutic Exercise to Include: Strength training, Power training, Endurance training, Balance training, Coordination, Flexibilty training, Gait and locomotor training, In an aquatic setting, Passive ROM, Active ROM, Dynamic L umbar Stabilization, Scapular Strength/Stabilization For the Purpose of:: To increase ROM, To improve nutrient delivery to tissue, To increase oxygenation perfusion, To improve muscle performance and motor function, To improve ability to perform ADL's, To improve health of tissue, To decrease soft tissue restriction, To increase flexibility/ROM, To improve endurance, To improve balance Thank you for the opportunity to evaluate your patient. For Medicare and Medicare HMO plans, please review the plan of care and approve it. It will need to be FAXED BACK to us at [phone] for Medicare purposes. For Medicare only, by signing this I certify the plan of care. Please let me know if there are questions or concerns regarding this plan of care. Physician Signature: Date:
--- NOTE | 2019-04-27 18:16 | HP.OTREVAL ---
Conrad Arroyo MD, It has been my pleasure to treat ROBERTA ZEE over the last 20 visits for CVA, Ataxia. Please see the progress note below for an update on the occupational therapy plan of care! Subjective: Arrived with , Eli. Noted that things are going well at home. Objective/Function: Completed reassessment on this date of 04/27/19 and resulting follows: ROM. Shoulder: - flexion L WFL, R AAROM 0-94. - abduction L WFL, R AAROM 0-99. Roberta exhibits 2+/5 for shoulder elevation but remains with trace movements for 1/5 for shoulder flexion and abduction. He does noted exhibit AROM but is able to complete AAROM for shoulder at this time. Elbow: L WFL, R 0-94 with increased holding of breath to complete movements. Tone is better regulated as previosuly Roberta with get stick in flexed position but as he relaxes elbow also relaxes. He exhibits 2+/5 for elbow flexion and 1/5 for elbow extenstion are control of elbow extension is lacking. Wrist: flexion: L WFL , PROM R 0-67 in gravity minimized position. extension L WFL , PROM R 0-31 in gravity minimized. Hand: IF MCP L WFL, R increased flexor tone noted with increased 49- 64 of AROM. MF MCP L WFL, R increased flexor tone noted with increased 65- 80 of AROM. He is unable to complete moving out of position due to flexor tone and lack of AROM for finger extension. He exhibit 2-/5 for finegr flexion but 1/5 for trace movement are extensor mechnaics are activated but no AROM is achienve for finger extension. Roberta has recieved [employer] and further training required. He will continue 1x every other week session for continued training. Plan Frequency: 1x/Week Duration: 3 Months Visits in this POC: 32 Plan: Roberta is to continue OT for 1x every other week appointment for the next 3 months for a total of 6 appointment. OT to continue to work on training on Bioness unit topromote carryover for home and continued tone management. Goals - Goals Goal:: Roberta to be (I) to regain at least 20 degrees of AROM for finger flexion and extension as well as flexion and extension of wrist to promote increased ability to complete ADL/IADLs with R UE and increased ability to get [facility] unit through [facility] by d/c. Goal:: Roberta to increase functional use of R UE to promote increased BUE coordination and use of R UE for self-care tasks (e.g. opening a jar, toilet hygiene) to promote increased ability to complete ADL/IADls at [facility]. Goal:: Roberta to follow 2 step instructions to complete self-care, functional activities, and HEP with 2-3x visual and verbal cues to promote increased ability to increase use of R UE by d/c. Goal:: Roberta to be mod I with use of visual prompt to complete writing first name with L hand for increased (i) with signature and ability to promote returning increased (i) by end of 6 weeks. Goal:: Roberta to be mod I to complete signing first name 4/5 trials 80% of the time with L UE to promote increased (I) and decreased need for assistance by d/c. Anticipated Interventions Anticipated Interventions: A/AAROM/PROM, Strengthening, Edema Control, Sensory Retraining, Modalities, Orthoses, Joint Protection/Energy Conservation, Ergonomic Education, Dynamic Sitting Balance, Fine Motor Coord/Angelito, Neuro Reeducation, Cognitive Skills, ADL Training, Education re assistive Equipment, Caregiver Training, Home Program, Other Please do not hesitate to contact me at [phone] by phone or if you have questions or concerns regarding this new plan of care! Sincerely, Amaris Anderson, RUTH ANNR/L
--- NOTE | 2019-04-28 14:39 | OTREVAL_ITS ---
Conrad Arroyo MD, It has been my pleasure to treat ROBERTA ZEE over the last 20 visits for CVA, Ataxia. Please see the progress note below for an update on the occupational therapy plan of care! Subjective: Arrived with , Eli. Noted that things are going well at home. Objective/Function: Completed reassessment on this date of 04/27/19 and resulting follows: ROM. Shoulder: - flexion L WFL, R AAROM 0-94. - abduction L WFL, R AAROM 0-99. Roberta exhibits 2+/5 for shoulder elevation but remains with trace movements for 1/5 for shoulder flexion and abduction. He does not exhibit AROM but is able to complete AAROM for shoulder at this time. Elbow: L WFL, R 0-94 with increased holding of breath to complete movements. Tone is better regulated as previously Roberta with get stick in flexed position but as he relaxes elbow also relaxes. He exhibits 2+/5 for elbow flexion and 1/5 for elbow extension are control of elbow extension is lacking. Wrist: flexion: L WFL , PROM R 0-67 in gravity minimized position. extension L WFL , PROM R 0-31 in gravity minimized. Hand: IF MCP L WFL, R increased flexor tone noted with increased 49- 64 of AROM. MF MCP L WFL, R increased flexor tone noted with increased 65- 80 of AROM. He is unable to complete moving out of position due to flexor tone and lack of AROM for finger extension. He exhibits 2-/5 for finger flexion but 1/5 for trace movements for extensor mechanics are activated but no AROM is achieve for finger extension. Progress is slow but he is continuing to make gain on R UE. Roberta has received Bioness and further training required. He will continue 1x every other week session for continued training for the next three months. Plan Frequency: 1x/Week Duration: 3 Months Visits in this POC: 32 Plan: Roberta is to continue OT for 1x every other week appointment for the next 3 months for a total of 6 appointments. OT to continue to work on training on Bioness unit to promote carryover for home and continued tone management. Next phase of therapy to continue to address goals but promote further home program for use of bioness and completion of training in different settings. Goals - Goals Goal:: Roberta to be (I) to regain at least 20 degrees of AROM for finger flexion and extension as well as flexion and extension of wrist to promote increased ability to complete ADL/IADLs with R UE and increased ability functionally use [facility] by d/c. Goal:: Roberta to increase functional use of R UE to promote increased BUE administrative project coordinator rdination and use of R UE for self-care tasks (e.g. opening a jar, toilet hygiene) to promote increased ability to complete ADL/IADls at [facility]. Goal:: Roberta to follow 2 step instructions to complete self-care, functional activities, and HEP with 2-3x visual and verbal cues to promote increased ability to increase use of R UE by d/c. Goal:: Roberta to be mod I with use of visual prompt to complete writing first name with L hand for increased (i) with signature and ability to promote returning increased (i) by end of 6 weeks. Goal:: Roberta to be mod I to complete signing first name 4/5 trials 80% of the time with L UE to promote increased (I) and decreased need for assistance by d/c. Goal:: Caregiver/ to be mod I to complete use of Bioness unit daily while following schedule to increase progression and time in device as well as HEP for continued functional use of R UE , hand, and general tone management tasks 4/5 trials 80% of the time by d/c. Goal:: Caregiver/ to be mod I to complete use of Bioness in both manual and preset modes to promote increased ability to completed HEP tasks at home 4/5 trials 80% of the time by d/c. Anticipated Interventions Anticipated Interventions: A/AAROM/PROM, Strengthening, Edema Control, Sensory Retraining, Modalities, Orthoses, Joint Protection/Energy Conservation, Ergonomic Education, Dynamic Sitting Balance, Fine Motor Coord/Angelito, Neuro Reeducation, Cognitive Skills, ADL Training, Education re assistive Equipment, Caregiver Training, Home Program, Other Please do not hesitate to contact me at [phone] by phone or if you have questions or concerns regarding this new plan of care! Sincerely, Amaris Anderson, OTR/L
--- NOTE | 2019-04-29 11:20 | HP.SP.ADRE_ITS ---
Previous/Current Goals - Goals 1-5 Previous Goal #1: The patient will express basic wants/needs via gestures, signs, visual supports, and/or AAC with 60% accuracy in 3/4 sessions. Goal 1 Status: The pt is able to spontaneously express basic and everyday tangible wants and needs to familiar persons approximately 80% of the time via points, facial expressions, and verbal attempts when questioned. He is not successful (<10% accuracy) using functional gestures to communicate, however (eg: show me you want to eat, show me you are tired, etc...), and is approximately 60% accurate imitating gestures given moderate cues. Use of AAC and other pictures has not been consistent or successful (<50% accuracy) and has been discontinued at this time. Previous Goal #2: The patient will answer simple yes/no questions via gestures, signs, visual supports, and/or AAC with 60% accuracy in 3/4 sessions. Goal 2 Status: Afshin answers yes/no questions with approximately 60-65% accuracy. He does do best when given a visual to indicate, with head shakes and verbalizations less accurate. Previous Goal #3: The patient will follow non-routine single-step identification or kinesthetic directions with 75% accuracy in 3/4 sessions. Goal 3 Status: Afshin is able to follow non-routine, single-step kinesthetic directions (open the door, throw this away, etc... when not in context) with approximately 80% accuracy given minimal prompts. However, he continues to demonstrate significant difficulty following or even imitating commands involving body parts (touch your ear, rub your head, etc...), demonstrating approximately 25% accuracy on these tasks. He is able to identify common nouns and verbs in pictures with approximately 75% accuracy, even with increased difficulty (words beginning with same phoneme, rhyming words, semantically similar words, etc...) Previous Goal #4: The patient will name common nouns and verbs via confrontation with 50% accuracy in 3/4 sessions. Goal 4 Status: Afshin is able to consistently name common nouns and verbs given phrase completion and/or initial phoneme cues with at least 90% accuracy; however, he continues to confrontation name with <5% accuracy indep. History - History Date of Eval: 06/04/18 Date of Onset of Diagnosis: 10/31/2016 Previous speech therapy: Yes Other Relevant Medical History/Diagnoses/Surgery: 10/31/16 pt suffered a left MCA distribution infarct complicated by respiratory failure. Following acute stay at [facility], pt at [facility] inpatient rehab from December-February,, followed by jail stay with further tx. He has since resided at home with his with in-home nursing assistance in place while attending outpatient tx at this facility since 07/08/17. Smoking Status: Former smoker Hx Smoking: Yes Hx Tobacco Use: Yes - jun 2016 Hx Smoking Exposure: Yes - Pain Is pain an issue with your current prescribed condition?: No Patient Allergies - Allergies Allergies azithromycin [From Zithromax Z-Dayo] Allergy (Intermediate, Verified 03/24/19 15:14) Hives lisinopril Allergy (Intermediate, Verified 03/24/19 15:14) Hives and diarrhea Sulfa (Sulfonamide Antibiotics) Allergy (Verified 03/24/19 15:14) Hives Cognitive/Ling Re-Eval - Re-Evaluation Cognitive-Linguistic Re-Evaluation: As of 04/08/2019, Afshin continues to present with significant cognitive-lingustic deficits characterized by severe expressive aphasia and mild-moderate receptive aphasia, as well as demonstrating moderate apraxic errors with verbalization. He has made limited but present progress since the time of his last evaluation: Basic yes/no questions are now answered with approximately 60-65% accuracy, up from consistently <50% accuracy. He is able to identify common nouns and verbs that are now semantically or phonetically related with approximately 75% accuracy (up from approximately 65% accuracy). Additionally, the pt is now spontaneously, though rarely, producing phrases of up to 8 words, though they are not functional or related to the topic/context; at the time of his last evaluation, he was combining only up to three words spontaneously. Plan - Plan Plan: Skilled speech-language therapy continues to be warranted at this time due to medical necessity, as the patient's level of cognitive-linguistic functioning makes it difficult for him to communicate needs and follow commands, especially with unfamiliar persons, during emergent situations. Additionally, Afshin remains highly intrinsicly motivated to improve his cognitive-linguistic skills, with progress expected to be slow for the amount of elapsed time and severity of deficits following his significant CVA. - Recommendations Treatment Warranted: Yes - Frequency Frequency: Every Other Week Duration: 1 year - Prognosis Prognosis: Fair - Goals that are Established: Determination:: Goals will be added/modified as deemed necessary and appropriate. Therapy will be discontinued when results of re-evaluation indicate therapy is no longer needed or lack of progress has been documented. - Goal #1-5 Goal #1: Given fading multimodal supports, Afshin will use functional gestures to communicate wants/needs with 50% accuracy in 3/4 consecutive sessions. Goal #2: Afshin will independently answer simple yes/no questions via visual supports, verbalizations, and/or head shakes with 75% accuracy in 3/4 consecutive sessions. Goal #3: Afshin will independently name common nouns and/or verbs via confrontation with 25% accuracy in 3/4 consecutive sessions. Goal #4: . Prompts: Min Accuracy: .
== END 2019-05-06 19:00 | disposition home or self-care (01) ==
LOC: PT 15:30
PROVIDERS: Family Provider Family Medicine; PCP Family Medicine; Referring Provider Family Medicine; Visit Provider Family Medicine
DX: G81.91 Hemiplegia, unspecified affecting right dominant side (principal); Z86.73 Personal history of transient ischemic attack (TIA), and cerebral infarction without residual deficits; R47.01 Aphasia
CPT/HCPCS: 92507; 97110; 97112; 97113; 97161; 97168; 97530

== ENCOUNTER 2019-07-14 16:00 | Outpatient (RCR) | payer MEDICARE, SELFPAY ==
[2019-05-01 14:43] VITALS: BMI 27.6
== END 2019-07-14 19:00 | disposition home or self-care (01) ==
LOC: PT 16:00
PROVIDERS: Family Provider Family Medicine; PCP Family Medicine; Referring Provider Family Medicine; Visit Provider Family Medicine
DX: G81.91 Hemiplegia, unspecified affecting right dominant side (principal); Z86.73 Personal history of transient ischemic attack (TIA), and cerebral infarction without residual deficits; R47.01 Aphasia
CPT/HCPCS: 92507; 97110; 97113; 97530

== ENCOUNTER 2020-05-05 15:00 | Outpatient (RCR) | payer MEDICARE, SELFPAY ==
[2019-10-07 15:42] VITALS: BMI 27.6
--- NOTE | 2020-03-09 16:09 | HP.PTEVAL ---
Patient's Visit Information ROBERTA ZEE is a 64 year old M referred to Physical Therapy by Dr. Conrad Arroyo MD with a diagnosis of CVA. Date of Evaluation: 03/09/20 Physical Therapist: Dov Zazueta, FRANCISCOT, OCS, CSCS - Visit Plan Frequency: weekly to every other wee Duration: 3 Months Plan: every other week x 10 visits for. 1. steps. 2. trasnfer off floor. 3. walking speed. 4. stadning ablance with reaching to wrok toward safe marketing support specialist stance. Pt may bring brace to walk in but doubtful he will use it. - Subjective Pt known to this clinic from previous treatment. Had a stroke 2017. Was being treated adn needed to stop due to 's chemo. present today. Says he walked all the way to OT today with cane, used need WC. Got a scooter 6 months ago which he rides outside and [employer] and lift on car. Does not use it inside. Uses cane in house , no steps. says he had a fall leaning on a moveable chair and fell to the floor but otherwise has been OK. It was hard to get off floor and wants to work on that. Fell another time getting out of chair in kitchen on slippery floor. Pain is not an issue. No trouble sleeping. says he gets leg cramps in right leg and massages it. Has been doing leg lifts with as ex but says R calf is very tight. Steps at daughter's house and son's house are encountered regularly. They are challenging and needs someone with him as his balance is off on the steps. Walks around house with cane I. Basic aDLs are I. says needs to walk faster. Has seat and grab bar in shower adn wants to get rid of seat. It is a step over tub. - Objective Walks mod I with cane in L UE, R foot drop, R rotation to clear foot adn steppage. Slow but steady, will not agree to wear brace which is not present today. Does not llike my hand on his back for safety. TUG 53 seconds with cane today. Trasnfer out of chair needing L UE mod I. Needs Min A to get on and off floor using small mat table scooting, unable/willing to go through half kneel. steps require L rail and can use either foot to ascend or descend, needs to be careful leading with R descending as leg tends to adduct. Also very slow, Nil FW weight hsift requiring leaning on rail and very scared and tentative, nearly SOB. Min A overalla nd increased time. L LE strength 4+/5, R ankle nil movement or strength, R knee ext full and 3+ adn flexion WFL and 4-. Hip flexion 3+, abd 4 and ext 3+ on R. Sensation seems OK to gross light touch in R LE. 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 For Medicare and Medicare HMO plans, please review the plan of care and approve it. It will need to be FAXED BACK to us at [phone] for Medicare purposes. For Medicare only, by signing this I certify the plan of care. Please let me know if there are questions or concerns regarding this plan of care. Physician Signature: Date:
--- NOTE | 2020-06-02 10:50 | HP.OT.NRP ---
ROBERTA ZEE was seen in my office for initial evaluation on 03/09/20. The following Plan of Care was established for this patient: pt called in pt was refusing to attend therapy sessions. Pts cancelled all apts at this time. Pt d/c due to request. Initial Frequency: 1x/Week Initial Duration: 6 Weeks Plan: cont POC , does working the other programs erase setting g. Anticipated Interventions: A/AAROM/PROM, Sensory Retraining, Ergonomic Education, Fine Motor Coord/Angelito, Neuro Reeducation, ADL Training, Caregiver Training, Home Program This patient was last seen in our office . Pertinent comments regarding their Occupational therapy will appear below: At this point I will be discontinuing this patient from occupational therapy. I would be happy to see this patient again in the future if found appropriate by the physician. Thank you! Hansa Linn, OTR/L, CHT
--- NOTE | 2020-07-05 14:54 | HP.SP.DC ---
ST Discharge Summary - Discharged: Discharge: Pt has participated in speech therapy services intermittently since July of 2017. Most recent POC addressed pt's remaining impairments related to expressive and receptive aphasias, as well as ataxia of speech. This patient will be discharging from speech therapy per the pt's request to take a break from all therapies as of 06/02/2020. Would recommend return to speech therapy services in the future if found appropriate by the pt's physician.
== END 2020-05-05 19:00 | disposition home or self-care (01) ==
LOC: PT 15:00
PROVIDERS: PCP Family Medicine; Referring Provider Family Medicine; Visit Provider Family Medicine
DX: R47.01 Aphasia (principal); Z86.73 Personal history of transient ischemic attack (TIA), and cerebral infarction without residual deficits
CPT/HCPCS: 92507; 97110; 97112; 97163; 97166

== ENCOUNTER → 2020-12-16 12:56 | Outpatient (CLI) | payer MEDICARE, MEDICAID, SELFPAY ==
[2020-12-05 15:25] VITALS: BMI 28.9
--- NOTE | 2020-12-16 13:54 | ECHOD_ITS ---
Reason For Study: CAD/ASHD Procedure This was a 2D Doppler, Color Flow transthoracic echocardiogram. The exam was of adequate technical quality. Exam performed in department. Left Ventricle Normal LV size. Left ventricular systolic function is normal. The estimated ejection fraction is 60 %. No evidence for diastolic dysfunction. No regional wall motion abnormalities noted. Right Ventricle Normal RV size. Normal systolic function. Atria The left atrium is mildly enlarged. Normal right atrium. No doppler evidence for ASD. Mitral Valve There is no mitral annular calcification. Normal mitral valve. Mild-Moderate (1-2+) mitral valve insufficiency. Tricuspid Valve Normal tricuspid valve. Mild tricuspid valve insufficiency. Right ventricular systolic pressure estimated to be 30 mmHg. Aortic Valve Trisinus/trileaflet aortic valve. Normal aortic valve. Pulmonic Valve The pulmonic valve is not well visualized. Trivial pulmonic valve insufficiency. Great Vessels Normal sized aortic root. Pericardium/Pleural No pericardial effusion. MMode/2D Measurements & Calculations LVIDd: 4.6 cm IVSd: 1.4 cm Ao root diam: 2.9 cm LVIDs: 2.9 cm LVPWd: 1.1 cm RVDd: 4.2 cm FS: 36.7 % LAV(MOD-bp): 68.8 ml LVAd ap4: 30.2 cm2 SV(MOD-sp4): 68.9 ml LAV(MOD-bp) Indexed: 33.6 ml/m2 LVLd ap4: 7.4 cm LAV(MOD-sp2): 64.5 ml EDV(MOD-sp4): 101.5 ml LAV(MOD-sp4): 64.0 ml EDV(sp4-el): 104.2 ml LVAs ap4: 15.6 cm2 LVLs ap4: 6.4 cm ESV(MOD-sp4): 32.6 ml ESV(sp4-el): 32.0 ml EF(MOD-sp4): 67.9 % EF(sp4-el): 69.3 % SV(sp4-el): 72.2 ml LA A4 area: 23.3 cm2 LA dimension(2D): 4.5 cm RA A4 area: 14.8 cm2 Doppler Measurements & Calculations MV E max leonardo: 81.8 cm/sec Lat Peak E' Leonardo: 11.2 cm/sec Med Peak E' Leonardo: 6.6 cm/sec MV A max leonardo: 63.7 cm/sec E/E' lat: 7.3 E/E' med: 12.4 MV E/A: 1.3 Ao V2 max: 112.6 cm/sec LV V1 max: 95.6 cm/sec PA V2 max: 99.2 cm/sec Ao max P.1 mmHg LV V1 max P.7 mmHg Ao V2 mean: 71.9 cm/sec Ao mean P.3 mmHg Ao V2 VTI: 28.2 cm TR max leonardo: 260.7 cm/sec TR max P.2 mmHg ECHO/Echo Complete Interpretation Summary Left ventricular systolic function is normal. The estimated ejection fraction is 60 %. The left atrium is mildly enlarged. Mild-Moderate (1-2+) mitral valve insufficiency. Mild tricuspid valve insufficiency. Trivial pulmonic valve insufficiency. Right ventricular systolic pressure estimated to be 30 mmHg. No evidence for diastolic dysfunction. Ordering Physician: Leon Robles Referring Physician: Conrad Arroyo Performed By: Keyanna Robles, LONI, RVT
--- NOTE | 2020-12-16 14:43 | PFTCOMP ---
COMPLETE PULMONARY FUNCTION TEST INTERPRETATION Brief HPI: Patient is a 65 year old male, currently under the care of Leon Robles, who presents to [facility] for complete pulmonary function tests secondary to diagnosis of high risk med use. Respiratory therapist reports good effort and reproducible results. Interpretation: Forced expiration spirometry shows a moderately severe large airways obstructive ventilatory defect with an FEV1 of 52% predicted. There is no significant bronchodilator response by strict ATS criteria. Spirograms are of good quality and plateau slowly, indicating slowly emptying areas of the lungs. The respiratory flow volume loop shows decreased expiratory flow rates at all lung volumes consistent with airway obstruction. Lung volumes by body plethysmography show a decreased total lung capacity at 4.53 L, 77% predicted. All other lung volumes reduced symmetrically. Diffusion capacity by carbon monoxide is decreased at 53% predicted. The airway resistance is normal. Compared to previous pulmonary function tests from 06/13/2018, there has been no significant change. Impression: Moderately severe mixed ventilatory defect with a symmetric reduction diffusion capacity. There is been no significant change compared to 2018.
== END ==
PROVIDERS: PCP Family Medicine; Referring Provider Nurse Practitioner Family; Visit Provider Nurse Practitioner Family
DX: I25.10 Atherosclerotic heart disease of native coronary artery without angina pectoris (principal); I48.0 Paroxysmal atrial fibrillation; Z95.1 Presence of aortocoronary bypass graft; I10 Essential (primary) hypertension; E78.5 Hyperlipidemia, unspecified; Z79.899 Other long term (current) drug therapy
CPT/HCPCS: 93306; 94060; 94726; 94729

== ENCOUNTER 2021-04-22 13:56 | Inpatient (IN) | payer MEDICARE, MEDICAID, SELFPAY ==
[2021-04-22] VITALS (13 sets, daily range): BP systolic 104–148; BP diastolic 60–70; PULSE 49–97; RESP 14–29; TEMP 36.6–37.9; O2SAT 88–98; BMI 27.8; BMI 27.1
--- NOTE | 2021-04-22 14:43 | EKG12_ITS ---
Test Reason : SOB Blood Pressure : / mmHG Vent. Rate : 066 BPM Atrial Rate : 066 BPM P-R Int : 210 ms QRS Dur : 092 ms QT Int : 432 ms P-R-T Axes : 051 -40 082 degrees QTc Int : 452 ms Sinus rhythm with 1st degree A-V block Left axis deviation Inferior infarct , age undetermined Abnormal ECG Confirmed by LITO WHITMAN, OLVIN ([id number]), supervising editor trailer KHRIS HOPKINS ([id number]) on 04/24/2021 10:36:44 AM Referred By: MARCI Confirmed By:OLVIN MORSE MD
--- NOTE | 2021-04-22 14:44 | ED.VIS.DYS ---
HPI History of Present Illness Chief Complaint: Shortness of Breath Detail of Chief Complaint: Cough for 2 weeks Informant: patient and spouse/S.O. Narrative Narrative: Is a the emergency department with his who gives the history. Patient has history of prior stroke and aphasia. Patient had a call for 2 weeks. Patient initially seen and started on prednisone and Tessalon Perles but had no improvement. He does have history of COPD. Patient has been immunized against COVID-19. Patient's had fever and cough that is nonproductive. Patient seen in urgent care today and referred to the emergency department. Patient not on home oxygen. Patient denies any chest pain. Patient on apixaban for history of A. fib. 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 tract infection Mixed obstructive and restrictive ventilatory defect Respiratory failure Sepsis Smoker Home Medications famotidine 20 mg PO QHS 12/21/16 [History Last Taken 03/10/19] baclofen 5 mg PO TID tab 02/05/17 [Rx Last Taken 03/11/19] escitalopram oxalate 10 mg PO DAILY tab 02/05/17 [Rx Last Taken 03/11/19] multivitamin,jb-[id number]-mhpzpour 1 tab PO DAILY 12/04/18 [History Last Taken 03/11/19] loratadine 10 mg PO DAILY 03/11/19 [History Last Taken 03/11/19] lorazepam 0.5 mg PO BID 03/11/19 [History Last Taken 03/11/19] fluticasone propionate 50 mcg/actuation nasal spray,suspension 2 spray INTRANASAL DAILY PRN PRN #18.2 ml 03/10/20 [Rx Last Taken Unknown] amiodarone 200 mg tablet 100 mg PO DAILY #15 tab 04/19/20 [Rx Last Taken Unknown] amlodipine 10 mg tablet 5 mg PO BID #30 tab 04/19/20 [Rx Last Taken Unknown] apixaban 5 mg tablet 5 mg PO BID #60 tab 04/19/20 [Rx Last Taken Unknown] atorvastatin 40 mg tablet 40 mg PO QHS #30 tab 04/19/20 [Rx Last Taken Unknown] clopidogrel 75 mg tablet 75 mg PO DAILY #30 tab 04/19/20 [Rx Last Taken Unknown] potassium chloride 10 mEq tablet,extended release 20 meq PO TID #90 tab 04/19/20 [Rx Last Taken Unknown] trazodone 50 mg tablet 100 mg PO QHS tab 04/19/20 [History Last Taken Unknown] albuterol sulfate 90 mcg/actuation aerosol inhaler 2 puff INHALATION Q6H PRN #18 g 01/19/21 [Rx Last Taken Unknown] metoprolol tartrate 25 mg tablet 12.5 mg PO BID #30 tab 04/19/21 [Rx Last Taken Unknown] benzonatate 100 mg PO TID PRN 04/22/21 [History Last Taken Unknown] ezetimibe 10 mg PO DAILY 04/22/21 [History Last Taken Unknown] hydrochlorothiazide 12.5 mg PO DAILY 04/22/21 [History Last Taken Unknown] sildenafil 50 mg PO PRN PRN 04/22/21 [History Last Taken Unknown] Allergy/AdvReac Type Severity Reaction Status Date / Time azithromycin Allergy Intermediate Hives Verified 04/22/21 13:57 [From Zithromax Z-Dayo] lisinopril Allergy Intermediate Hives and Verified 04/22/21 13:57 diarrhea Sulfa (Sulfonamide Allergy Hives Verified 04/22/21 13:57 Antibiotics) Family History Mother Diabetes Father AAA (abdominal aortic aneurysm) Surgical History History of gastrostomy tube placement (11/07/16) History of tracheostomy (11/07/16) 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 Batsheva Boland MD) Smoking Status: Unknown if ever smoked how long ago did patient quit smokin years ago, 2ppd second hand exposure: Yes alcohol intake: never substance use type: does not use caffeine: No ROS ROS ED ROS Narrative Generalized weakness Constitutional Constitutional ED: Reports systems reviewed and no addt'l complaints, except as documented and fever(s); Denies body ache(s), change in weight or chills Eyes Eyes: Denies acute decrease in peripheral vision, change in vision, double vision or loss of vision ENT ENT ED: Reports none; Denies ear pain, lip swelling, loss taste/smell, neck pain, otalgia or sore throat Cardiovascular Cardiovascular: Reports none; Denies abdominal pain, chest pain with activity, leg edema, lightheadedness, palpitations, rapid heart rate or syncope Respiratory/Chest Respiratory/Chest: Reports none and cough; Denies change in mental status, dry cough, dyspnea, hemoptysis, shortness of breath at rest, shortness of breath with exertion or sputum Gastrointestinal Gastrointestinal: Reports none; Denies abdominal pain, change in stool character, diarrhea, hematemesis, hematochezia, melena, rectal bleeding or vomiting Genitourinary Genitourinary ED: Reports none; Denies abdominal discomfort, anuria, dysuria, genital pain or polyuria Musculoskeletal Musculoskeletal: Reports none; Denies arthralgias, back pain, difficulty walking, extremity pain, muscle weakness or myalgias Integumentary Reports none; Denies abscess or rash Neurologic Neurologic: Reports none; Denies abnormal gait, confusion, focal weakness, frequent falls, headache(s), loss of vision, numbness, paresthesias, radicular pain, vertigo or weakness Psychiatric Psychiatric: Reports systems reviewed and no addt'l complaints, except as documented and none; Denies behavioral changes, confusion, difficulty concentrating, hallucinations, suicidal ideation, tactile hallucinations or visual hallucinations Endocrine Endocrinology: Denies none, cold intolerance, excessive sweating, fatigue or heat intolerance Hematologic/Lymphatic Hematologic/Lymphatic: Reports none; Denies anemia, easy bleeding or easy bruising Allergic/Immunologic Allergic/Immunologic ED: Denies as per HPI, none, lip swelling, mouth swelling, throat swelling, tongue swelling or hives EXAM Physical Exam Const Vital Signs: 04/22/21 13:57 04/22/21 14:42 04/22/21 14:59 Temperature 98 F 98 F Temperature Source Temporal Temporal Pulse Rate 78 78 64 Respiratory Rate 20 H 20 H 18 Respiratory Effort Short of Breath Accessory Muscle Use Respiratory Depth Shallow Respiratory Pattern Tachypnea Blood Pressure 148/60 H 148/60 H Blood Pressure Mean 89 89 Pulse Ox 88 88 91 Oxygen Delivery Method Room Air Nasal Cannula Nasal Cannula Oxygen Flow Rate (L/min) 2 3 04/22/21 15:15 04/22/21 15:35 Temperature Temperature Source Pulse Rate 74 Respiratory Rate 29 H Respiratory Effort Respiratory Depth Respiratory Pattern Blood Pressure 134/68 H Blood Pressure Mean 90 Pulse Ox 88 90 Oxygen Delivery Method Nasal Cannula Nasal Cannula Oxygen Flow Rate (L/min) 3 5 Positive well nourished and well developed General Appearance ED: well developed and NAD HEENT Reports TM's clear and moist mucous membranes normocephalic and atraumatic; Negative for trauma or tenderness Tympanic Membrane ED: Yes TM's clear Eyes PERRL and EOMs intact bilaterally General Eye ED: Negative for pale conjunctiva or scleral icterus Neck no lymphadenopathy, supple and no JVD General: Negative for tenderness Chest Wall inspection of chest normal and palpation of chest normal Chest: Negative for tenderness Resp normal respiratory effort Effort and Inspection: Negative for respiratory distress or pain with movement Auscultation: rhonchi and wheezes; Negative for diminished lung sounds Cardio regular rate, regular rhythm, S1 normal heart sound, S2 normal heart sound and no murmurs Peripheral Pulses: pulses 2+ throughout GI normal to inspection, nondistended, normoactive bowel sounds, soft to palpation, non-tender, non-distended and no masses Back/Spine no CVA tenderness and no thoracic nor lumbar tenderness Extremity normal to inspection General Extremety ED: Negative for edema General Extremity: Negative for edema Neuro oriented x3, CN's II-XII intact bilaterally, no sensory deficits noted and gait normal Sensorium / Orientation: awake, alert, oriented to person, oriented to place and oriented to time Motor Exam: strength 5/5 throughout and strength abnormal Psych mental status grossly normal Skin no rashes or lesions noted and no wounds MDM MDM MDM Narrative Medical decision making narrative: Patient had nebulized tablets on arrival. Patient was placed on nasal cannula O2. He was given a DuoNeb aerosol. Patient started on Solu-Medrol 125 mg IV. Patient started on Levaquin 750 mg IV. Blood cultures ordered and pending. On x-ray patient noted to have multifocal pneumonia. Case discussed with hospitalist will evaluate patient for admission Lab Data Attestation: I reviewed the patient's lab results. Labs: Laboratory Results - last 24 hr 04/22/21 04/22/21 04/22/21 14:35 14:35 14:35 WBC 30.3 H* RBC 4.60 Hgb 13.6 Hct 41.3 MCV 89.8 MCH 29.6 MCHC 32.9 RDW Std Deviation 43.3 RDW Coeff of Makayla 13.2 Plt Count 278 MPV 10.6 Immature Gran % (Auto) 1.800 H Neut % (Auto) 81.9 H Lymph % (Auto) 5.5 L [place] % (Auto) 10.5 H Eos % (Auto) 0.1 Baso % (Auto) 0.2 Absolute Neuts (auto) 24.8 H Absolute Lymphs (auto) 1.66 Nucleated RBC % 0 Sodium 136 Potassium 4.1 Chloride 102 Carbon Dioxide 29.0 Anion Gap 5 BUN 19 H Creatinine 1.21 Estim Creat Clear Calc 58.88 Est GFR (MDRD) Af Amer 77 Est GFR (MDRD) Non-Af 64 BUN/Creatinine Ratio 15.7 Glucose 109 H Lactic Acid 1.4 Calcium 8.7 Troponin I High Sens 6 B-Natriuretic Peptide 04/22/21 14:35 WBC RBC Hgb Hct MCV MCH MCHC RDW Std Deviation RDW Coeff of Makayla Plt Count MPV Immature Gran % (Auto) Neut % (Auto) Lymph % (Auto) [place] % (Auto) Eos % (Auto) Baso % (Auto) Absolute Neuts (auto) Absolute Lymphs (auto) Nucleated RBC % Sodium Potassium Chloride Carbon Dioxide Anion Gap BUN Creatinine Estim Creat Clear Calc Est GFR (MDRD) Af Amer Est GFR (MDRD) Non-Af BUN/Creatinine Ratio Glucose Lactic Acid Calcium Troponin I High Sens B-Natriuretic Peptide 65.6 Radiography Chest X-Ray - ED: 1 View Diagnostic Testing: Radiology Impression Chest X-Ray 04/22/21 15:07 IMPRESSION: Multifocal pneumonia. Coronary bypass. Electronically Signed: Adeola Freeman MD at 15:38 EDT Tel , Service support , 1 view chest x-ray obtained interpreted by myself as infiltrate to the right lower lobe and right upper lobe. Radiology agreed and called it multifocal pneumonia and status post coronary artery bypass grafting. EKG Initial EKG: Attestation: I personally reviewed and interpreted this EKG as follows: Comments: Sinus rhythm with a ventricular rate of 66 bpm with a first-degree AV block and old inferior infarct noted. Discharge Plan Dx/Rx/DC Orders Clinical Impression: Multifocal pneumonia, Hypoxemia, Leukocytosis Disposition Disposition: Acute Care Hospital [facility]
[2021-04-22] MEDS: Ipratropium/Albuterol Sulfate 3 ML AMPUL.NEB INHALATION (14:57)
--- NOTE | 2021-04-22 15:07 | RAD_ITS ---
STUDY: X-RAY CHEST REASON FOR EXAM: Male, 65 years old. cough, dyspnea TECHNIQUE: Frontal portable view of the chest COMPARISON: 11 March 2019 FINDINGS: There are extensive right greater than left lung regional opacities, worst in the right upper lobe. There is no pneumothorax, pulmonary edema or pleural effusions. The heart is mildly enlarged with prior bypass. There is a vascular stent superior to the aortic arch, possibly origin of the carotid. RAD/Chest 1 View (Portable) IMPRESSION: Multifocal pneumonia. Coronary bypass. Electronically Signed: Adeola Freeman MD at 15:38 EDT Tel , Service support ,
[2021-04-22 15:14] LABS: Absolute Lymphocyte Count 1.66 X10^3/uL (0.83-4.51); Absolute Neutrophil Count 24.8 X10^3/uL (2.0-7.7); Basophil# 0.06 X10^3/uL; Basophil% 0.2 % (0-1); Eosinophil# 0.03 X10^3/uL; Eosinophils% 0.1 % (0-5); Hematocrit 41.3 % (40-54); Hemoglobin 13.6 g/dL (13.0-16.5); Lymphocyte # 1.66 X10^3/ul (0.83-4.51); Lymphocyte % 5.5 % (19-41); Mean Corp Hgb Conc 32.9 g/dL (32-36); Mean Corpuscular Hgb 29.6 pg (27.0-32.0); Mean Corpuscular Volume 89.8 fL (80-94); Mean Platelet Vol. 10.6 fl (6.2-12.0); Monocyte# 3.19 X10^3/uL; Monocyte% 10.5 % (0-10); NRBC Flagged by Analyzer 0 % (0-5); Neutrophil % 81.9 % (47-70); POSITIVE COUNT YES; POSITIVE DIFFERENTIAL YES; Platelet Count 278 K/mm3 (150-450); RBC Distribution Width CV 13.2 % (11.6-14.6); RBC Distribution Width SD 43.3 fl (35.1-43.9)
[2021-04-22 15:16] LABS: Differential Indicated SCAN CRITERIA MET; White Blood Count 30.3 K/mm3 (4.4-11.0)
[2021-04-22 15:32] LABS: Anion Gap 5 (5-15); BUN 19 mg/dL (7-18); BUN/Creat Ratio 15.7 RATIO (10-20); Calcium,Total 8.7 mg/dL (8.5-10.1); Chloride 102 mmol/L (98-107); Creatinine, Serum 1.21 mg/dL (0.70-1.30); EST Glomerular Filtration Rate 64 mL/min (>60); Est Glom Filt Rate - Afr Amer 77 mL/min (>60); Estimated Creatinine Clearance 58.88 ml/min; Glucose 109 mg/dL (74-106); Lactic Acid 1.4 mmol/L (0.4-1.9); Potassium 4.1 mmol/L (3.5-5.1); Sodium Level 136 mmol/L (136-145); Troponin-I HS 6 pg/mL (3.0-78.0)
[2021-04-22] MEDS: levoFLOXacin IV 750 MG/150 ML BAG 100 MG IV (15:36)
[2021-04-22] MEDS: MethylPREDNISolone 125 MG/2 ML Vial IV (15:36)
[2021-04-22] MEDS: 0.9% Normal Saline 1,000 ML 150 ML IV (15:36)
[2021-04-22 15:42] LABS: BNP,B-Type NATRIURETIC PEPTIDE 65.6 pg/mL (0-100)
[2021-04-22 15:58] LABS: Platelet Estimate ADEQUATE (ADEQ); Red Cell Morphology NORM C+C NORMAL (NORM C&C)
[2021-04-22 15:59] LABS: Differential Comment SCANNED
--- NOTE | 2021-04-22 18:10 | HP.PCM_ITS ---
HPI - General General Date of Admission: 04/22/21 HPI Narrative ROBERTA ZEE, is a 65 M with a history of COPD, chronic atrial fibrillation on antiarrhythmic therapy with amiodarone, hypertension and several vascular disease with history of stroke. Presented to the hospital with 2 weeks history of shortness of breath and cough that has been worsening. Cough is a dry cough. Found to be hypoxic at 88% on room air. Chest x-ray showed multifocal infiltrates on the right and COVID-19 testing was negative. Of note is that he was vaccinated in November 2020 with the Moderna Covid 19 vaccine. 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 tract infection Mixed obstructive and restrictive ventilatory defect Respiratory failure Sepsis Smoker Home Medications famotidine 20 mg PO QHS 12/21/16 [History Last Taken 03/10/19] baclofen 5 mg PO TID tab 02/05/17 [Rx Last Taken 03/11/19] escitalopram oxalate 10 mg PO DAILY tab 02/05/17 [Rx Last Taken 03/11/19] multivitamin,lv-[id number]-[id number] 1 tab PO DAILY 12/04/18 [History Last Taken 03/11/19] loratadine 10 mg PO DAILY 03/11/19 [History Last Taken 03/11/19] lorazepam 0.5 mg PO BID 03/11/19 [History Last Taken 03/11/19] fluticasone propionate 50 mcg/actuation nasal spray,suspension 2 spray INTRANASAL DAILY PRN PRN #18.2 ml 03/10/20 [Rx Last Taken Unknown] amiodarone 200 mg tablet 100 mg PO DAILY #15 tab 04/19/20 [Rx Last Taken Unknown] amlodipine 10 mg tablet 5 mg PO BID #30 tab 04/19/20 [Rx Last Taken Unknown] apixaban 5 mg tablet 5 mg PO BID #60 tab 04/19/20 [Rx Last Taken Unknown] atorvastatin 40 mg tablet 40 mg PO QHS #30 tab 04/19/20 [Rx Last Taken Unknown] clopidogrel 75 mg tablet 75 mg PO DAILY #30 tab 09/15/20 [Rx Last Taken Unknown] potassium chloride 10 mEq tablet,extended release 20 meq PO TID #90 tab 04/19/20 [Rx Last Taken Unknown] trazodone 50 mg tablet 100 mg PO QHS tab 04/19/20 [History Last Taken Unknown] albuterol sulfate 90 mcg/actuation aerosol inhaler 2 puff INHALATION Q6H PRN #18 g 01/19/21 [Rx Last Taken Unknown] metoprolol tartrate 25 mg tablet 12.5 mg PO BID #30 tab 04/19/21 [Rx Last Taken Unknown] benzonatate 100 mg PO TID PRN 04/22/21 [History Last Taken Unknown] ezetimibe 10 mg PO DAILY 04/22/21 [History Last Taken Unknown] hydrochlorothiazide 12.5 mg PO DAILY 04/22/21 [History Last Taken Unknown] sildenafil 50 mg PO PRN PRN 04/22/21 [History Last Taken Unknown] Allergy/AdvReac Type Severity Reaction Status Date / Time azithromycin Allergy Intermediate Hives Verified 04/22/21 13:57 [From Zithromax Z-Dayo] lisinopril Allergy Intermediate Hives and Verified 04/22/21 13:57 diarrhea Sulfa (Sulfonamide Allergy Hives Verified 04/22/21 13:57 Antibiotics) Family History Mother Diabetes Father AAA (abdominal aortic aneurysm) Surgical History History of gastrostomy tube placement (11/07/16) History of tracheostomy (11/07/16) 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 Batsheva Boland MD) Smoking Status: Unknown if ever smoked how long ago did patient quit smokin years ago, 2ppd second hand exposure: Yes alcohol intake: never substance use type: does not use caffeine: No ROS ROS Narrative Patient is aphasic and so review of systems and history obtained from his spouse who is at the bedside. Denies any chest pain. Denies any nausea vomiting. All other systems reviewed and essentially negative. Vital Signs Vital Signs Vital Signs: 04/22/21 13:57 04/22/21 14:42 04/22/21 14:59 Temperature 36.6 C 36.6 C Temperature Source Temporal Temporal Pulse Rate 78 78 64 Respiratory Rate 20 H 20 H 18 Respiratory Effort Short of Breath Accessory Muscle Use Respiratory Depth Shallow Respiratory Pattern Tachypnea Blood Pressure 148/60 H 148/60 H Blood Pressure Mean 89 89 Pulse Ox 88 88 91 Oxygen Delivery Method Room Air Nasal Cannula Nasal Cannula Oxygen Flow Rate (L/min) 2 3 04/22/21 15:15 04/22/21 15:35 04/22/21 16:00 Temperature 37.2 C Temperature Source Temporal Pulse Rate 74 97 Respiratory Rate 29 H 23 H Respiratory Effort Respiratory Depth Respiratory Pattern Blood Pressure 134/68 H 106/63 Blood Pressure Mean 90 77 Pulse Ox 88 90 96 Oxygen Delivery Method Nasal Cannula Nasal Cannula Nasal Cannula Oxygen Flow Rate (L/min) 3 5 6 04/22/21 17:00 Temperature 37.9 C H Temperature Source Temporal Pulse Rate 72 Respiratory Rate 26 H Respiratory Effort Respiratory Depth Respiratory Pattern Blood Pressure 104/69 Blood Pressure Mean 80 Pulse Ox 98 Oxygen Delivery Method Oxygen Flow Rate (L/min) 9 Weight Weight: 83.007 kg Body Mass Index (BMI) 27.8 Physical Exam Narrative General. Elderly man not acutely ill-appearing, not in any obvious distress, mildly dyspneic. HEENT. Oral mucosa moist, head is normocephalic. Neck. Supple. Heart. First and second heart sounds heard. Grade 2/6 systolic murmur noted. Lungs. Slightly harsh breath sounds on the right. Abdomen. Full, moves with respiration, nontender. Extremities. No pedal edema. Muscle wasting on the right especially at the right shoulder girdle. 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 Aphasic. Difficulty case comprehension. Cranial nerves II through XII grossly intact. Spastic weakness on the right. Results Lab / Micro Data Result Diagrams: 04/22/21 14:35 04/22/21 14:35 Labs: Laboratory Results - last 24 hr 04/22/21 14:35: WBC 30.3 H*, RBC 4.60, Hgb 13.6, Hct 41.3, MCV 89.8, MCH 29.6, MCHC 32.9, RDW Std Deviation 43.3, RDW Coeff of Makayla 13.2, Plt Count 278, MPV 10.6, Immature Gran % (Auto) 1.800 H, Neut % (Auto) 81.9 H, Lymph % (Auto) 5.5 L , [place] % (Auto) 10.5 H, Eos % (Auto) 0.1, Baso % (Auto) 0.2, Absolute Neuts (auto) 24.8 H, Absolute Lymphs (auto) 1.66, Nucleated RBC % 0, Differential Comment SCANNED, Diff Path Review May foll, Platelet Estimate ADEQUATE, RBC Morphology NORM C+C 04/22/21 14:35: Sodium 136, Potassium 4.1, Chloride 102, Carbon Dioxide 29.0, Anion Gap 5, BUN 19 H, Creatinine 1.21, Estim Creat Clear Calc 58.88, Est GFR (MDRD) Af Amer 77, Est GFR (MDRD) Non-Af 64, BUN/Creatinine Ratio 15.7, Glucose 109 H, Calcium 8.7, Troponin I High Sens 6 04/22/21 14:35: Lactic Acid 1.4 04/22/21 14:35: B-Natriuretic Peptide 65.6 Micro: Microbiology 04/22/21 14:35 Nasal Secretion SARS-CoV-2 Antigen (Rapid) - Final Radiology Impression Chest X-Ray 04/22/21 15:07 IMPRESSION: Multifocal pneumonia. Coronary bypass. Electronically Signed: Adeola Freeman MD at 15:38 EDT Tel , Service support , Assessment & Plan Assessment/Plan (1) Multifocal pneumonia: PLAN: Right-sided multifocal pneumonia. On review of chest x-ray this appears to be more interstitial than alveolar. Patient has had symptoms for over 2 weeks. Patient has leukocytosis was most likely secondary to steroids which was prescribed for his symptoms. Nonetheless reasonable to presumptively treat for bacterial pneumonia until definitively ruled out. We will check a procalcitonin. Of note is that patient has been on long-term amiodarone therapy and so will need to consider amiodarone induced interstitial lung disease/lung toxicity. Restrictive and obstructive defect noted on most recent PFTs. We will consult pulmonology (family requesting). Chest CT (high-resolution). (2) Acute respiratory failure with hypoxia: PLAN: Supplemental oxygen. 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 May need to evaluate risk benefit of continued use of amiodarone. Pulmonology to kindly weigh. May need cardiology to weigh in as well. (4) Paroxysmal atrial fibrillation: PLAN: Rate and rhythm controlled. Continue anticoagulation. (5) S/P CABG x 5: Charges/Coding Visit Charges Inpatient E&M: 06177 Init Hosp L3
--- NOTE | 2021-04-22 18:57 | CT_ITS ---
EXAM: CT CHEST WITHOUT INTRAVENOUS CONTRAST : 1955 CLINICAL INDICATION: possible ILD TECHNIQUE: Helically acquired images were obtained of the chest without intravenous contrast. This CT exam was performed using one or more of the following dose reduction techniques: automated exposure control, adjustment of the mA and/or kV according to patient size, and/or use of iterative reconstruction technique. This report was created using [employer] report generation technology. COMPARISON: None. FINDINGS: LUNGS AND PLEURAL SPACES: There is consolidation in the right upper lobe compatible with pneumonia. There is minimal bibasilar atelectasis present. No mass. No pleural effusion or thickening. HEART: Unremarkable. Heart size is normal. No pericardial effusion. MEDIASTINUM: Unremarkable. No mediastinal or hilar adenopathy. Esophagus is unremarkable. No hiatal hernia. THYROID: Unremarkable. No thyroid lesions. BONES/JOINTS: Unremarkable. No suspicious lytic or blastic abnormality. VASCULATURE: Unremarkable. Thoracic aorta is non-dilated. CT/Chest without Contrast IMPRESSION: Right upper lobe consolidation compatible with pneumonia. There is minimal bibasilar atelectasis. Individualized dose optimization techniques were used for this CT. at 0019 Reported and signed by: Giacomo Kelly MD Electronically Signed: Giacomo Kelly MD at 0:18 EDT Tel , Service support ,
[2021-04-22 21:03] LABS: Procalcitonin 0.34 ng/mL (0.00-0.09)
[2021-04-22] MEDS: Atorvastatin Calcium 40 MG Tablet PO (21:37)
[2021-04-22] MEDS: Metoprolol Tartrate 25 MG Tablet 12.5 MG PO (21:37)
[2021-04-22] MEDS: Doxycycline 100 MG CAPSULE PO (21:37)
[2021-04-22] MEDS: Famotidine 20 MG Tablet PO (21:37)
[2021-04-22] MEDS: traZODone 100 MG Tablet PO (21:37)
[2021-04-22] MEDS: LORazepam 0.5 MG Tablet PO (21:38)
[2021-04-22] MEDS: amLODIPine 5 MG Tablet PO (21:38)
[2021-04-22] MEDS: APIXABAN 5 MG TABLET PO (22:52)
--- NOTE | 2021-04-22 23:06 | PCS.PANDOC ---
PANDEMIC DOCUMENTATION INITIATED: Date: 03/20/2021 Time: 190
[2021-04-23] VITALS (15 sets, daily range): BP systolic 121–136; BP diastolic 49–66; PULSE 51–75; RESP 18–20; TEMP 36.5–37; O2SAT 93–96
[2021-04-23 06:24] LABS: Absolute Neutrophil Count 18.1 X10^3/uL (2.0-7.7); Basophil# 0.05 X10^3/uL; Basophil% 0.2 % (0-1); Hematocrit 39.6 % (40-54); Hemoglobin 12.8 g/dL (13.0-16.5); Lymphocyte % 4.9 % (19-41); Mean Corp Hgb Conc 32.3 g/dL (32-36); Mean Corpuscular Hgb 29.8 pg (27.0-32.0); Mean Corpuscular Volume 92.1 fL (80-94); Mean Platelet Vol. 11.1 fl (6.2-12.0); Monocyte# 0.74 X10^3/uL; Monocyte% 3.6 % (0-10); NRBC Flagged by Analyzer 0 % (0-5); Neutrophil # 18.11 X10^3/uL (2.7-7.7); Neutrophil % 89.4 % (47-70); Platelet Count 229 K/mm3 (150-450); RBC Distribution Width SD 43.8 fl (35.1-43.9); White Blood Count 20.3 K/mm3 (4.4-11.0)
[2021-04-23 07:07] LABS: Erythrocyte Sedimentation Rate 51 mm/hr (0-20)
[2021-04-23 07:15] LABS: ALB/GLOB Ratio 0.5 RATIO (0.9-2.4); AST(SGOT) 12 U/L (15-37); Alanine Aminotransfer ALT/SGPT 19 U/L (16-61); Albumin, Serum 2.1 g/dL (3.2-5.0); Alkaline Phosphatase 104 U/L (45-117); Anion Gap 3 (5-15); BUN 23 mg/dL (7-18); BUN/Creat Ratio 22.1 RATIO (10-20); Calcium,Total 8.5 mg/dL (8.5-10.1); Chloride 106 mmol/L (98-107); Creatinine, Serum 1.04 mg/dL (0.70-1.30); EST Glomerular Filtration Rate 76 mL/min (>60); Est Glom Filt Rate - Afr Amer 92 mL/min (>60); Estimated Creatinine Clearance 70.81 ml/min; Globulin 4.3 g/dL (2.2-4.2); Glucose 144 mg/dL (74-106); Potassium 3.9 mmol/L (3.5-5.1); Protein, Total 6.4 g/dL (6.4-8.2); Sodium Level 138 mmol/L (136-145)
[2021-04-23] MEDS: Potassium Chloride Oral Tablet 20 MEQ PO ×3 (07:42→18:18)
[2021-04-23] MEDS: Baclofen 10 MG Tablet 5 MG PO ×3 (07:42→18:18)
--- NOTE | 2021-04-23 09:03 | PN.HOSP_ITS ---
Subjective Subjective Patient was seen and examined. He is improved from 9 L oxygen to 4 L of oxygen. Denies any fever or chills. Objective Data Objective Data Vital Signs: Vital Signs Temp Pulse Resp BP Pulse Ox 98.2 F 57 L 18 121/49 H 94 04/23/21 07:56 04/23/21 07:56 04/23/21 07:56 04/23/21 07:56 04/23/21 07:56 Oxygen Flow Rate (L/min) 5 Oxygen Delivery Method Nasal Cannula Weight: 83.5 kg Body Mass Index (BMI) 27.1 Intake & Output: Intake and Output for Last 24 Hours 04/21/21 04/22/21 04/23/21 23:59 23:59 23:59 Intake Total 1150 / 1150 Output Total 300 / 300 Balance 850 / 850 Lab / Micro Data Result Diagrams: 04/23/21 05:20 04/23/21 05:20 Labs: Laboratory Results - last 24 hr 04/22/21 14:35: WBC 30.3 H*, RBC 4.60, Hgb 13.6, Hct 41.3, MCV 89.8, MCH 29.6, MCHC 32.9, RDW Std Deviation 43.3, RDW Coeff of Makayla 13.2, Plt Count 278, MPV 10.6, Immature Gran % (Auto) 1.800 H, Neut % (Auto) 81.9 H, Lymph % (Auto) 5.5 L , [place] % (Auto) 10.5 H, Eos % (Auto) 0.1, Baso % (Auto) 0.2, Absolute Neuts (auto) 24.8 H, Absolute Lymphs (auto) 1.66, Nucleated RBC % 0, Differential Comment SCANNED, Diff Path Review December, Platelet Estimate ADEQUATE, RBC Morphology NORM C+C 04/22/21 14:35: Sodium 136, Potassium 4.1, Chloride 102, Carbon Dioxide 29.0, Anion Gap 5, BUN 19 H, Creatinine 1.21, Estim Creat Clear Calc 58.88, Est GFR (MDRD) Af Amer 77, Est GFR (MDRD) Non-Af 64, BUN/Creatinine Ratio 15.7, Glucose 109 H, Calcium 8.7, Troponin I High Sens 6 04/22/21 14:35: Lactic Acid 1.4 04/22/21 14:35: B-Natriuretic Peptide 65.6 04/22/21 20:10: Procalcitonin 0.34 H 04/23/21 05:20: WBC 20.3 H, RBC 4.30 L, Hgb 12.8 L, Hct 39.6 L, MCV 92.1, MCH 29.8, MCHC 32.3, RDW Std Deviation 43.8, RDW Coeff of Makayla 13.0, Plt Count 229, MPV 11.1, Immature Gran % (Auto) 1.900 H, Neut % (Auto) 89.4 H, Lymph % (Auto) 4.9 L, [place] % (Auto) 3.6, Eos % (Auto) 0.0, Baso % (Auto) 0.2, Absolute Neuts (auto) 18.1 H, Absolute Lymphs (auto) 1.00, Nucleated RBC % 0, ESR 51 H 04/23/21 05:20: Sodium 138, Potassium 3.9, Chloride 106, Carbon Dioxide 29.0, Anion Gap 3 L, BUN 23 H, Creatinine 1.04, Estim Creat Clear Calc 70.81, Est GFR (MDRD) Af Amer 92, Est GFR (MDRD) Non-Af 76, BUN/Creatinine Ratio 22.1 H, Glucose 144 H, Calcium 8.5, Total Bilirubin 0.60, AST 12 L, ALT 19, Alkaline Phosphatase 104, C-React Prot Ext Range 207.00 H, Total Protein 6.4, Albumin 2.1 L, Globulin 4.3 H, Albumin/Globulin Ratio 0.5 L Micro: Microbiology 04/22/21 14:35 Nasal Secretion SARS-CoV-2 Antigen (Rapid) - Final Radiography Diagnostic Testing: Radiology Impression Chest X-Ray 04/22/21 15:07 IMPRESSION: Multifocal pneumonia. Coronary bypass. Electronically Signed: Adeola Freeman MD at 15:38 EDT Tel , Service support , Chest CT 04/22/21 18:57 IMPRESSION: Right upper lobe consolidation compatible with pneumonia. There is minimal bibasilar atelectasis. Individualized dose optimization techniques were used for this CT. at 0019 Reported and signed by: Giacomo Kelly MD Electronically Signed: Giacomo Kelly MD at 0:18 EDT Tel , Service support , Physical Exam Narrative Physical exam: General: Alert, Oriented to self, Cooperative, No apparent distress, insensate HEENT: Atraumatic Oral: Moist Mucosa Neck: Supple Lungs: Clear to auscultation Cardiovascular: HS I+II, regular, no murmurs Abdomen: Bowel Sounds Present, Soft, Non Tender Extremities: No edema Neurological: Alert, oriented to self, power is 2/5 on right side, flaccid on the right side Assessment & Plan Assessment/Plan (1) Multifocal pneumonia: (2) Acute respiratory failure with hypoxia: (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 Acute hypoxic respiratory failure secondary to pneumonia, slowly improving Rapid COVID-19 test negative. Currently on 4 L of oxygen, continue to encourage incentive spirometer, wean off SPO2 more than 90 to 92% 2. Acute right multifocal pneumonia in the setting of chronic interstitial fibrosis Patient has history of allergies azithromycin, continue on Levaquin 3. Paroxysmal atrial fibrillation, rate controlled, controlled on metoprolol, on anticoagulation 4. Rest of chronic medical conditions including hypertension, hyperlipidemia, h istory of stroke with residual weakness and aphasia, CAD s/p CABG Home medications reviewed Charges/Coding Visit Charges Inpatient E&M: 05424 Subs Hosp L3
[2021-04-23] MEDS: Escitalopram Oxalate 10 MG Tablet PO (10:59)
[2021-04-23] MEDS: levoFLOXacin IV 750 MG/150 ML BAG 100 MG IV (10:59)
[2021-04-23] MEDS: APIXABAN 5 MG TABLET PO ×2 (10:59→20:17)
[2021-04-23] MEDS: LORazepam 0.5 MG Tablet PO ×2 (10:59→22:04)
[2021-04-23] MEDS: Ezetimibe 10 MG Tablet PO (11:00)
[2021-04-23] MEDS: hydroCHLOROthiazide 12.5mg 12.5 MG PO (11:00)
[2021-04-23] MEDS: amLODIPine 5 MG Tablet PO ×2 (11:01→20:17)
[2021-04-23] MEDS: Clopidogrel Bisulfate 75 MG Tablet PO (11:01)
--- NOTE | 2021-04-23 12:53 | CON.PCM.CC_ITS ---
Assessment & Plan Assessment/Plan (1) Multifocal pneumonia: (2) Chronic atrial fibrillation: (3) History of tracheostomy: (4) Mixed obstructive and restrictive ventilatory defect: (5) Aphasia as late effect of stroke: PLAN: RECOMMENDATIONS: 1. Continue current antibiotics for now 2. Wean oxygen as tolerated 3. Okay to continue amiodarone for now 4. If requires increased oxygen, consider steroid therapy and broadening antibiotics to include MRSA IMPRESSIONS: 1. Acute hypoxic respiratory insufficiency secondary to multifocal pneumonia in the setting of pulmonary fibrosis Patient with moderately severe mixed ventilatory defect previously. Patient has been followed by Dr. Mcgrath in the past. CT of the chest is sugges tive of a superimposed right upper lobe pneumonia. Patient has had MRSA in the past, but appears to be improving on current therapy. We will continue with the current antibiotics for now, but would broaden antibiotics and add steroids if patient starts to decompensate. Dr. Mcgrath will be taking over tomorrow, so will not change any medication such as amiodarone at this time. Patient does not duenas ve any stridor on exam to suggest tracheal stenosis as an etiology. 2. Hyperlipidemia/hypertension/history of protracted recovery following stroke/aphasia/chronic A. fib Complicates care, management, recovery and prognosis. Okay to continue with baseline medications from my perspective. HPI Consult Data Date of Consult: 04/23/21 HPI Narrative HPI Narrative: ROBERTA ZEE is a 65 M, with past medical history listed below, who presents to [facility] on 04/22/2021 secondary to progressive shortness of breath and cough over the last 2 weeks. Patient was initially started on prednisone and Tessalon Perles, but did not have improvement. Patient does have a history of COPD and has been immunized against COVID-19. Patient reportedly had a subjective fever and increasing cough that was nonproductive. Patient was seen in urgent care on the day of presentation but were referred to the emergency department secondary to concerns for need for oxygen. Patient is on anticoagulation at baseline secondary to history of A. fib. In the ER, patient was afebrile, but slightly tachypneic and noted to be 88% on room air. Patient was slightly hypertensive at 148/60, but improved with supplemental oxygen. Laboratory data was significant for a white blood cell count of 30.3, creatinine of 1.2 and a lactate of 1.4. BNP was 65.6. Patient was given a DuoNeb aerosol, initiated on supplemental oxygen, Levaquin and given a dose of Solu-Medrol. Chest x-ray was suggestive of multifocal pneumonia with predominance in the right upper lobe. Patient has been doing well since arriving on the [facility] unit. Patient reportedly has had some intermittently productive cough. Patient is aphasic and no family is in the room to help with the history. All medical history was obtained from the medical record and discussion with staff. Unable to obtain review of systems as patient answers yes to everything. [facility], [facility] Medical History (Updated 04/22/21 @ 18:52 by Camilo Morgan) Anemia Aphasia as late effect of stroke Atherosclerosis of coronary artery without angina pectoris Carotid artery disease Cerebral arterial aneurysm Chronic atrial fibrillation Confusion Debility Dysphagia HTN (hypertension) Hyperlipidemia Left acute arterial ischemic stroke, MCA (middle cerebral artery) (10/31/16) [facility] current use of amiodarone Lower resp. tract infection Mixed obstructive and restrictive ventilatory defect Respiratory failure Sepsis Smoker Stroke/cerebrovascular accident Home Medications famotidine 20 mg PO QHS 12/21/16 [History Last Taken 03/10/19] baclofen 5 mg PO TID tab 02/05/17 [Rx Last Taken 03/11/19] escitalopram oxalate 10 mg PO DAILY tab 02/05/17 [Rx Last Taken 03/11/19] multivitamin,[id number] 1 tab PO DAILY 12/04/18 [History Last Taken 03/11/19] loratadine 10 mg PO DAILY 03/11/19 [History Last Taken 03/11/19] lorazepam 0.5 mg PO BID 03/11/19 [History Last Taken 03/11/19] fluticasone propionate 50 mcg/actuation nasal spray,suspension 2 spray INTRANASAL DAILY PRN PRN #18.2 ml 03/10/20 [Rx Last Taken Unknown] amiodarone 200 mg tablet 100 mg PO DAILY #15 tab 04/19/20 [Rx Last Taken Unknown] amlodipine 10 mg tablet 5 mg PO BID #30 tab 04/19/20 [Rx Last Taken Unknown] apixaban 5 mg tablet 5 mg PO BID #60 tab 04/19/20 [Rx Last Taken Unknown] atorvastatin 40 mg tablet 40 mg PO QHS #30 tab 04/19/20 [Rx Last Taken Unknown] clopidogrel 75 mg tablet 75 mg PO DAILY #30 tab 04/19/20 [Rx Last Taken Unknown] potassium chloride 10 mEq tablet,extended release 20 meq PO TID #90 tab 04/19/20 [Rx Last Taken Unknown] trazodone 50 mg tablet 100 mg PO QHS tab 04/19/20 [History Last Taken Unknown] albuterol sulfate 90 mcg/actuation aerosol inhaler 2 puff INHALATION Q6H PRN #18 g 01/19/21 [Rx Last Taken Unknown] metoprolol tartrate 25 mg tablet 12.5 mg PO BID #30 tab 04/19/21 [Rx Last Taken Unknown] benzonatate 100 mg PO TID PRN 04/22/21 [History Last Taken Unknown] ezetimibe 10 mg PO DAILY 04/22/21 [History Last Taken Unknown] hydrochlorothiazide 12.5 mg PO DAILY 04/22/21 [History Last Taken Unknown] sildenafil 50 mg PO PRN PRN 04/22/21 [History Last Taken Unknown] Allergy/AdvReac Type Severity Reaction Status Date / Time azithromycin Allergy Intermediate Hives Verified 04/22/21 13:57 [From Zithromax Z-Dayo] lisinopril Allergy Intermediate Hives and Verified 04/22/21 13:57 diarrhea Sulfa (Sulfonamide Allergy Hives Verified 04/22/21 13:57 Antibiotics) Family History Mother Diabetes Father AAA (abdominal aortic aneurysm) Surgical History History of gastrostomy tube placement (11/07/16) History of tracheostomy (11/07/16) 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 Batsheva Boland MD) Smoking Status: Former smoker how long ago did patient quit smokin years ago, 2ppd second hand exposure: Yes alcohol intake: never substance use type: does not use caffeine: No ROS Review of Systems ROS Unobtainable: other Details: Aphasia Physical Exam Const alert and no apparent distress General Appearance: cooperative; Negative for in distress or ill appearing HEENT normocephalic and head/scalp atraumatic Eyes PERRL, EOMs intact bilaterally and no scleral icterus Neck full ROM Resp normal respiratory effort and no use of accessory muscles Effort and Inspection: Negative for labored or actively coughing Auscultation: rhonchi right upper Cardio S1 normal heart sound, S2 normal heart sound, no murmurs, no rub, no gallops and no JVD Rhythm: abnormal rhythm irregularly irregular GI normal to inspection, nondistended, normoactive bowel sounds Extremity no clubbing, cyanosis or edema Skin no rashes or lesions noted Neuro Neuro Narrative: Right-sided weakness and atrophy. Aphasia noted. Speech: Negative for speech normal Psych cooperative Lab / Micro Data Result Diagrams: 04/23/21 05:20 04/23/21 05:20 Labs: Laboratory Results - last 24 hr 04/22/21 14:35: WBC 30.3 H*, RBC 4.60, Hgb 13.6, Hct 41.3, MCV 89.8, MCH 29.6, MCHC 32.9, RDW Std Deviation 43.3, RDW Coeff of Makayla 13.2, Plt Count 278, MPV 10.6, Immature Gran % (Auto) 1.800 H, Neut % (Auto) 81.9 H, Lymph % (Auto) 5.5 L , [place] % (Auto) 10.5 H, Eos % (Auto) 0.1, Baso % (Auto) 0.2, Absolute Neuts (auto) 24.8 H, Absolute Lymphs (auto) 1.66, Nucleated RBC % 0, Differential Comment SCANNED, Diff Path Review May , Platelet Estimate ADEQUATE, RBC Morphology NORM C+C 04/22/21 14:35: Sodium 136, Potassium 4.1, Chloride 102, Carbon Dioxide 29.0, Anion Gap 5, BUN 19 H, Creatinine 1.21, Estim Creat Clear Calc 58.88, Est GFR (MDRD) Af Amer 77, Est GFR (MDRD) Non-Af 64, BUN/Creatinine Ratio 15.7, Glucose 109 H, Calcium 8.7, Troponin I High Sens 6 04/22/21 14:35: Lactic Acid 1.4 04/22/21 14:35: B-Natriuretic Peptide 65.6 04/22/21 20:10: Procalcitonin 0.34 H 04/23/21 05:20: WBC 20.3 H, RBC 4.30 L, Hgb 12.8 L, Hct 39.6 L, MCV 92.1, MCH 29.8, MCHC 32.3, RDW Std Deviation 43.8, RDW Coeff of Makayla 13.0, Plt Count 229, MPV 11.1, Immature Gran % (Auto) 1.900 H, Neut % (Auto) 89.4 H, Lymph % (Auto) 4.9 L, [place] % (Auto) 3.6, Eos % (Auto) 0.0, Baso % (Auto) 0.2, Absolute Neuts (auto) 18.1 H, Absolute Lymphs (auto) 1.00, Nucleated RBC % 0, ESR 51 H 04/23/21 05:20: Sodium 138, Potassium 3.9, Chloride 106, Carbon Dioxide 29.0, Anion Gap 3 L, BUN 23 H, Creatinine 1.04, Estim Creat Clear Calc 70.81, Est GFR (MDRD) Af Amer 92, Est GFR (MDRD) Non-Af 76, BUN/Creatinine Ratio 22.1 H, Glucose 144 H, Calcium 8.5, Total Bilirubin 0.60, AST 12 L, ALT 19, Alkaline Phosphatase 104, C-React Prot Ext Range 207.00 H, Total Protein 6.4, Albumin 2.1 L, Globulin 4.3 H, Albumin/Globulin Ratio 0.5 L Micro: Microbiology 04/22/21 14:35 Nasal Secretion SARS-CoV-2 Antigen (Rapid) - Final Radiology Impression Chest X-Ray 04/22/21 15:07 IMPRESSION: Multifocal pneumonia. Coronary bypass. Electronically Signed: Adeola Freeman MD at 15:38 EDT Tel , Service support , Chest CT 04/22/21 18:57 IMPRESSION: Right upper lobe consolidation compatible with pneumonia. There is minimal bibasilar atelectasis. Individualized dose optimization techniques were used for this CT. at 0019 Reported and signed by: Giacomo Kelly MD Electronically Signed: Giacomo Kelly MD at 0:18 EDT Tel , Service support , Charges/Coding Visit Charges Inpatient E&M: 02987 Init Hosp L3
[2021-04-23] MEDS: Metoprolol Tartrate 25 MG Tablet 12.5 MG PO (20:16)
[2021-04-23] MEDS: traZODone 100 MG Tablet PO (20:17)
[2021-04-23] MEDS: Atorvastatin Calcium 40 MG Tablet PO (20:17)
[2021-04-23] MEDS: Famotidine 20 MG Tablet PO (20:18)
[2021-04-24] VITALS (15 sets, daily range): BP systolic 119–126; BP diastolic 47–74; PULSE 43–97; RESP 16–18; TEMP 36.4–37.1; O2SAT 87–97
[2021-04-24 06:22] LABS: Absolute Lymphocyte Count 1.38 X10^3/uL (0.83-4.51); Absolute Neutrophil Count 22.3 X10^3/uL (2.0-7.7); Basophil# 0.06 X10^3/uL; Basophil% 0.2 % (0-1); Hematocrit 38.5 % (40-54); Hemoglobin 12.3 g/dL (13.0-16.5); Lymphocyte # 1.38 X10^3/ul (0.83-4.51); Lymphocyte % 5.3 % (19-41); Mean Corp Hgb Conc 31.9 g/dL (32-36); Mean Corpuscular Hgb 29.6 pg (27.0-32.0); Mean Corpuscular Volume 92.5 fL (80-94); Mean Platelet Vol. 10.8 fl (6.2-12.0); Monocyte# 2.16 X10^3/uL; Monocyte% 8.2 % (0-10); NRBC Flagged by Analyzer 0 % (0-5); Neutrophil # 22.26 X10^3/uL (2.7-7.7); POSITIVE DIFFERENTIAL YES; Platelet Count 311 K/mm3 (150-450); RBC Distribution Width CV 13.1 % (11.6-14.6); RBC Distribution Width SD 44.1 fl (35.1-43.9); Red Blood Count 4.16 M/mm3 (4.6-6.2); White Blood Count 26.2 K/mm3 (4.4-11.0)
[2021-04-24 06:54] LABS: ALB/GLOB Ratio 0.5 RATIO (0.9-2.4); AST(SGOT) 30 U/L (15-37); Alanine Aminotransfer ALT/SGPT 40 U/L (16-61); Alkaline Phosphatase 103 U/L (45-117); Anion Gap 12 (5-15); BUN 25 mg/dL (7-18); BUN/Creat Ratio 28.7 RATIO (10-20); Calcium,Total 8.2 mg/dL (8.5-10.1); Chloride 105 mmol/L (98-107); Creatinine, Serum 0.87 mg/dL (0.70-1.30); EST Glomerular Filtration Rate 93 mL/min (>60); Est Glom Filt Rate - Afr Amer 113 mL/min (>60); Estimated Creatinine Clearance 84.65 ml/min; Globulin 4.2 g/dL (2.2-4.2); Glucose 104 mg/dL (74-106); Protein, Total 6.2 g/dL (6.4-8.2); Sodium Level 138 mmol/L (136-145)
[2021-04-24 07:12] LABS: Differential Indicated SCAN CRITERIA MET
[2021-04-24] MEDS: Potassium Chloride Oral Tablet 20 MEQ PO ×3 (08:52→16:58)
[2021-04-24] MEDS: Baclofen 10 MG Tablet 5 MG PO ×3 (08:53→16:58)
[2021-04-24] MEDS: hydroCHLOROthiazide 12.5mg 12.5 MG PO (09:44)
[2021-04-24] MEDS: LORazepam 0.5 MG Tablet PO ×2 (09:44→21:07)
[2021-04-24] MEDS: APIXABAN 5 MG TABLET PO ×2 (09:44→21:07)
[2021-04-24] MEDS: Metoprolol Tartrate 25 MG Tablet 12.5 MG PO ×2 (09:44→21:07)
[2021-04-24] MEDS: levoFLOXacin IV 750 MG/150 ML BAG 100 MG IV (09:44)
[2021-04-24] MEDS: Escitalopram Oxalate 10 MG Tablet PO (09:44)
[2021-04-24] MEDS: Nystatin Powder 15gm Bottle 1 APPLIC TOPICAL ×2 (09:45→21:09)
[2021-04-24] MEDS: Ezetimibe 10 MG Tablet PO (09:46)
[2021-04-24] MEDS: amLODIPine 5 MG Tablet PO ×2 (09:46→21:07)
[2021-04-24] MEDS: Clopidogrel Bisulfate 75 MG Tablet PO (09:46)
--- NOTE | 2021-04-24 10:39 | CASEMGMT ---
RN CM Assessment: Face to Face with pt for initial transition planning/care coordination assessment. RN CM introduced self and role at [facility] to pt and , pt unable to answer and consents to assessment. Acknowledged patient and made aware this RN CM will ask assessment questions to . Pt states yeah. Pt states it doesn't matter what he says, I am the POA. Made her aware this CM was being respectful and acknowledging the patient. She was short in her answers to questions. Care providers, pharmacy, and demographics verified/updated. Admitting Dx: pna, hypoxia PCP:Cruz Specialists:delmer Mcgrath; Pt states she doesn't know the rest and you should have them already. [facility]erred [facility]acy: [facility] Insurance: My Care CRSC/ [facility] Prescription Benefit: yes LW/HPOA: Eli Bhat, is DPOA and it is on file along with LW. LNOK: Eli Bhat, aaron Living Arrangements: Pt lives with in a ground level apt with no steps to enter. reports patient can dress self and sit on bath seat to wash self but needs assistance from . Transportation: transports patient to medical appts. DME/HHC/SNF: Pt has grab bars in the bathroom and a special shower seat in the shower and a cane. Pt [facility] had [facility] the past and stayed at [facility] ago. Pt has [facility] from [place] that come in 2-3 days a week for 3-4 hours. states pt has a CM from [facility], but does not know the name. Notified Miranda PETERSON of this. Pt states no concerns with going home at time of dc. She asks to speak with pt nurse. Notified nurse Luana. She denies further needs. CM to follow. Advised pt to ask CM if any further question/concerns/needs arise, voices understanding. Pt Goal: Pt to return home. Plan: Home with support, follow for any therapies.
--- NOTE | 2021-04-24 11:51 | CASEMGMT ---
Social Work Note SW received call from Qian at [facility] stating pt's CM is Nayeli Short ([phone]). Qian states pt has HHC aides daily through [facility], Meals through [email or web address], and [employer] through [facility]. 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
--- NOTE | 2021-04-24 12:44 | PCS.PANDOC ---
PANDEMIC DOCUMENTATION INITIATED: Date: 03/20/2021 Time: 190
[2021-04-24 12:48] LABS: Pathologist Review Reviewed
--- NOTE | 2021-04-24 13:11 | PN.CC_ITS ---
Assessment & Plan Assessment/Plan (1) Multifocal pneumonia: (2) Chronic atrial fibrillation: (3) History of tracheostomy: (4) Mixed obstructive and restrictive ventilatory defect: (5) Aphasia as late effect of stroke: PLAN: RECOMMENDATIONS: 1. Continue Levaquin to complete 7 days of therapy. 2. Perform walking oximetry study prior to consideration for discharge home. 3. Continue as needed bronchodilator therapy. 4. The patient should follow-up in the pulmonary medicine clinic 2 weeks post discharge. 5. Recommend repeat CT chest in 6 to 8 weeks to document resolution of the rig ht upper lobe consolidation. 6. Agree with speech therapy evaluation. IMPRESSIONS: 1. Acute hypoxic respiratory insufficiency secondary to multifocal pneumonia Chest imaging demonstrated the presence of a predominant right upper lobe consolidation. Given the patient's history, this would be concerning for potential aspiration pneumonia. The patient is stable from an oxygenation perspective. He is on appropriate antimicrobial therapy, which I would recommend be continued for at least 7 days. I agree with speech therapy evaluation while he is admitted to the hospital. Ongoing supplemental oxygen need should be evaluated prior to discharge. The patient should follow-up in the pulmonary medicine clinic in 2 weeks. Ideally, repeat chest imaging should be completed in 6 to 8 weeks to document resolution of the patient's consolidation. 2. Hyperlipidemia/hypertension/history of protracted recovery following stroke/aphasia/chronic A. fib Complicates care, management, recovery and prognosis. Okay to continue with baseline medications from my perspective. This note was generated with [employer] dictation software. It may contain incorrect words, spelling, and punctuation that were not noted in checking the note before signing. Subjective Subjective The patient was seen and examined at the bedside this morning. Events from the last 24 hours have been reviewed. The patient is currently afebrile, hemodynamically stable and maintaining appropriate oxygen saturations on room air. The patient remains on Levaquin. He is currently documented to be overall net +1.8 L for the hospital admission. Objective Data Objective Data The patient's most recent lab work, culture data and imaging studies have all been personally reviewed. Rapid coronavirus antigen testing was negative. Blood cultures have demonstrated no growth to date. Strep and urine Legionella antigens were negative. Vital Signs: Vital Signs Temp Pulse Resp BP Pulse Ox 97.8 F 93 18 123/74 H 93 04/24/21 08:06 04/24/21 10:00 04/24/21 08:06 04/24/21 09:44 04/24/21 08:11 Oxygen Flow Rate (L/min) 3 Oxygen Delivery Method Room Air Weight: 83.5 kg Body Mass Index (BMI) 27.1 Intake & Output: Intake and Output for Last 24 Hours 04/22/21 04/23/21 04/24/21 23:59 23:59 23:59 Intake Total 1150 / 1150 1450 / 1650 1200 / 1200 Output Total 300 / 300 950 / 1250 700 / 700 Balance 850 / 850 500 / 400 500 / 500 Lab / Micro Data Attestation: I reviewed the patient's lab results. Result Diagrams: 04/24/21 05:46 04/24/21 05:46 Labs: Laboratory Results - last 24 hr 04/22/21 14:35: Diff Path Review Reviewed 04/24/21 05:46: WBC 26.2 H, RBC 4.16 L, Hgb 12.3 L, Hct 38.5 L, MCV 92.5, MCH 29.6, MCHC 31.9 L, RDW Std Deviation 44.1 H, RDW Coeff of Makayla 13.1, Plt Count 311, MPV 10.8, Immature Gran % (Auto) 1.300 H, Neut % (Auto) 85.0 H, Lymph % (Auto) 5.3 L, [place] % (Auto) 8.2, Eos % (Auto) 0.0, Baso % (Auto) 0.2, Absolute Neuts (auto) 22.3 H, Absolute Lymphs (auto) 1.38, Nucleated RBC % 0, Diff Path Review May 04/24/21 05:46: Sodium 138, Potassium 4.0, Chloride 105, Carbon Dioxide 21.0, Anion Gap 12, BUN 25 H, Creatinine 0.87, Estim Creat Clear Calc 84.65, Est GFR (MDRD) Af Amer 113, Est GFR (MDRD) Non-Af 93, BUN/Creatinine Ratio 28.7 H, Glucose 104, Calcium 8.2 L, Total Bilirubin 0.40, AST 30, ALT 40, Alkaline Phosphatase 103, Total Protein 6.2 L, Albumin 2.0 L, Globulin 4.2, Albumin/Globulin Ratio 0.5 L Micro: Microbiology 04/22/21 14:35 Blood Culture (Wb) - Anticubital Left Blood Culture - Pr eliminary No growth in 48 hours. 04/23/21 14:49 Urine, Clean Catch Legionella Antigen - Final 04/23/21 14:49 Urine, Clean Catch Streptococcus pneumoniae Antigen (M - Final 04/22/21 14:35 Nasal Secretion SARS-CoV-2 Antigen (Rapid) - Final Physical Exam Const alert and no apparent distress General Appearance: cooperative Exam Limitations: language barrier Nutritional Appearance: overweight HEENT normocephalic and head/scalp atraumatic Neck supple General: trachea midline Chest inspection of chest normal Resp Auscultation: diminished lung sounds; Negative for rales, rhonchi or wheezes Cardio regular rate and regular rhythm GI normal to inspection, nondistended, normoactive bowel sounds Extremity no clubbing, cyanosis or edema Skin no rashes or lesions noted Neuro Neuro Narrative: Baseline expressive aphasia Psych cooperative and affect normal Charges/Coding Visit Charges Inpatient E&M: 52344 Subs Hosp L2
--- NOTE | 2021-04-24 14:21 | PN.HOSP_ITS ---
Subjective Subjective Patient has expressive aphasia at baseline. He has had no issues overnight. He remains on oxygen, but weaning. Per discussion with nursing staff patient did feed himself quite quickly and there has been concern of aspiration in the past. Last MBS was done in 2017. Objective Data Objective Data Vital Signs: Vital Signs Temp Pulse Resp BP Pulse Ox 97.8 F 64 18 123/74 H 93 04/24/21 08:06 04/24/21 14:00 04/24/21 08:06 04/24/21 09:44 04/24/21 08:11 Oxygen Flow Rate (L/min) 3 Oxygen Delivery Method Room Air Weight: 83.5 kg Body Mass Index (BMI) 27.1 Intake & Output: Intake and Output for Last 24 Hours 04/22/21 04/23/21 04/24/21 23:59 23:59 23:59 Intake Total 1150 / 1150 1450 / 1650 1200 / 1200 Output Total 300 / 300 950 / 1250 700 / 700 Balance 850 / 850 500 / 400 500 / 500 Lab / Micro Data Result Diagrams: 04/24/21 05:46 04/24/21 05:46 Labs: Laboratory Results - last 24 hr 04/22/21 14:35: Diff Path Review Reviewed 04/24/21 05:46: WBC 26.2 H, RBC 4.16 L, Hgb 12.3 L, Hct 38.5 L, MCV 92.5, MCH 29.6, MCHC 31.9 L, RDW Std Deviation 44.1 H, RDW Coeff of Makayla 13.1, Plt Count 311, MPV 10.8, Immature Gran % (Auto) 1.300 H, Neut % (Auto) 85.0 H, Lymph % (Auto) 5.3 L, [place] % (Auto) 8.2, Eos % (Auto) 0.0, Baso % (Auto) 0.2, Absolute Neuts (auto) 22.3 H, Absolute Lymphs (auto) 1.38, Nucleated RBC % 0, Diff Path Review December04/24/21 05:46: Sodium 138, Potassium 4.0, Chloride 105, Carbon Dioxide 21.0, Anion Gap 12, BUN 25 H, Creatinine 0.87, Estim Creat Clear Calc 84.65, Est GFR (MDRD) Af Amer 113, Est GFR (MDRD) Non-Af 93, BUN/Creatinine Ratio 28.7 H, Glucose 104, Calcium 8.2 L, Total Bilirubin 0.40, AST 30, ALT 40, Alkaline Phosphatase 103, Total Protein 6.2 L, Albumin 2.0 L, Globulin 4.2, Albumin/Globulin Ratio 0.5 L Micro: Microbiology 04/22/21 14:35 Blood Culture (Wb) - Anticubital Left Blood Culture - Preliminary No growth in 48 hours. 04/23/21 14:49 Urine, Clean Catch Legionella Antigen - Final 04/23/21 14:49 Urine, Clean Catch Streptococcus pneumoniae Antigen (M - Final 04/22/21 14:35 Nasal Secretion SARS-CoV-2 Antigen (Rapid) - Final Physical Exam Const alert, no apparent distress and average body habitus Constitutional Narrative: Overweight white male sitting up in bed, patient answers yes to all questions but follows commands without difficulty. Has known expressive aphasia at baseline related to previous stroke Exam Limitations: language barrier HEENT head/scalp atraumatic and moist oral mucous membranes HEENT Narrative: No thrush Head and Scalp: normocephalic Resp normal respiratory effort, no retractions and no use of accessory muscles Resp Narrative: Diminished with few crackles right apex but otherwise clear Auscultation: crackles; Negative for rales, rhonchi or wheezes Cardio regular rate, S1 normal heart sound, S2 normal heart sound, no rub, no gallops, no clicks and no JVD Cardio Narrative: Irregular rhythm, 2 out of 6 systolic murmur GI normal to inspection, nondistended, normoactive bowel sounds, soft to palpation, non-tender and non-distended Extremity no clubbing, cyanosis or edema Peripheral Pulses: Yes pulses 2+ throughout Skin no rashes or lesions noted, no wounds, skin turgor normal, no jaundice, no petechiae and no mottling Skin Narrative: Skin is pale Neuro moves all extremities Neuro Narrative: Speech is abnormal with expressive aphasia, receptive speech appears to be intact Sensorium / Orientation: awake and alert Assessment & Plan Assessment/Plan (1) Dysphagia: QUALIFIERS: Dysphagia type: unspecified Qualified Code(s): R13.10 - Dysphagia, unspecified (2) Aphasia as late effect of stroke: (3) Acute respiratory failure with hypoxia: (4) Right upper lobe pneumonia: PLAN: Acute hypoxic respiratory failure secondary to multifocal pneumonia -Ambulatory pulse ox assessed and patient needing 2 L nasal cannula to maintain oxygen saturation greater than 88%. -Patient does not wear oxygen at baseline -CT of the chest is consistent with right upper lobe pneumonia with significant consolidation -Continue as needed bronchodilator therapy -Levaquin day 2 of 7 -Incentive spirometry as able -Check modified barium swallow with history of aspiration -Speech therapy consultation -Covid negative -Legionella and strep pneumo antigens are negative -Unable to produce a sputum -Discussed case with pulmonary and agree with need for MBS prior to discharge -Recommend outpatient follow-up with pulmonary in [address] chest in 6 to 8 weeks to reevaluate right upper lobe consolidation Leukocytosis -Slight trend up but clinically improved -Continue to monitor Chronic mild anemia -Stable -Continue to monitor -Patient is fully anticoagulated at baseline secondary to PAF PAF -Patient is currently in atrial fibrillation but rate is controlled -Continue amiodarone -Continue apixaban -Continue metoprolol History of stroke -Continue full anticoagulation -Continue Plavix -Continue risk factor modification -Patient with chronic expressive aphasia at baseline -Continue baclofen -Patient suffered stroke immediately postoperative from his CABG CAD/hypertension/hyperlipidemia/subclavian stenosis -Continue home medications -History of 5 vessel bypass in 2017 -Left subclavian stenosis has been stented GERD -Continue H2 flavia DVT prophylaxis -Continue apixaban CODE STATUS -Full code Charges/Coding Visit Charges Inpatient E&M: 67169 Subs Hosp L2
[2021-04-24 15:49] LABS: Pathologist Review Reviewed
[2021-04-24] MEDS: 0.9% Saline Lock 10 ML Syringe IV (21:02)
[2021-04-24] MEDS: Atorvastatin Calcium 40 MG Tablet PO (21:07)
[2021-04-24] MEDS: traZODone 100 MG Tablet PO (21:07)
[2021-04-24] MEDS: Famotidine 20 MG Tablet PO (21:07)
[2021-04-24] MEDS: Phenylephrine 0.25%/Cocoa Btr 1 Rectal Supp 1 SUPP RC (21:11)
[2021-04-25] VITALS (8 sets, daily range): BP systolic 112–137; BP diastolic 60–65; PULSE 62–73; RESP 16–18; TEMP 37–37.5; O2SAT 86–92
[2021-04-25 07:27] LABS: Absolute Lymphocyte Count 1.92 X10^3/uL (0.83-4.51); Absolute Neutrophil Count 14.6 X10^3/uL (2.0-7.7); Basophil# 0.03 X10^3/uL; Basophil% 0.2 % (0-1); Eosinophil# 0.02 X10^3/uL; Eosinophils% 0.1 % (0-5); Hematocrit 38.3 % (40-54); Hemoglobin 12.5 g/dL (13.0-16.5); Lymphocyte # 1.92 X10^3/ul (0.83-4.51); Lymphocyte % 9.8 % (19-41); Mean Corp Hgb Conc 32.6 g/dL (32-36); Mean Corpuscular Hgb 29.3 pg (27.0-32.0); Mean Corpuscular Volume 89.9 fL (80-94); Mean Platelet Vol. 11.1 fl (6.2-12.0); Monocyte# 2.77 X10^3/uL; Monocyte% 14.1 % (0-10); NRBC Flagged by Analyzer 0 % (0-5); Neutrophil % 74.6 % (47-70); POSITIVE DIFFERENTIAL YES; Platelet Count 285 K/mm3 (150-450); RBC Distribution Width CV 13.2 % (11.6-14.6); RBC Distribution Width SD 43.1 fl (35.1-43.9); Red Blood Count 4.26 M/mm3 (4.6-6.2); White Blood Count 19.6 K/mm3 (4.4-11.0)
[2021-04-25 07:33] LABS: Differential Indicated SCAN CRITERIA MET
[2021-04-25 08:03] LABS: ALB/GLOB Ratio 0.5 RATIO (0.9-2.4); AST(SGOT) 20 U/L (15-37); Alanine Aminotransfer ALT/SGPT 36 U/L (16-61); Albumin, Serum 2.1 g/dL (3.2-5.0); Alkaline Phosphatase 101 U/L (45-117); Anion Gap 7 (5-15); BUN 20 mg/dL (7-18); BUN/Creat Ratio 21.5 RATIO (10-20); Calcium,Total 8.1 mg/dL (8.5-10.1); Chloride 101 mmol/L (98-107); Creatinine, Serum 0.93 mg/dL (0.70-1.30); EST Glomerular Filtration Rate 86 mL/min (>60); Est Glom Filt Rate - Afr Amer 104 mL/min (>60); Estimated Creatinine Clearance 79.19 ml/min; Globulin 4.1 g/dL (2.2-4.2); Glucose 74 mg/dL (74-106); Potassium 3.6 mmol/L (3.5-5.1); Protein, Total 6.2 g/dL (6.4-8.2); Sodium Level 136 mmol/L (136-145)
--- NOTE | 2021-04-25 08:16 | PCM.PN.HOSP ---
Objective Data Objective Data Vital Signs: Vital Signs Temp Pulse Resp BP Pulse Ox 99.5 F H 64 18 112/60 92 04/25/21 02:48 04/25/21 04:25 04/25/21 02:48 04/25/21 02:48 04/25/21 07:28 Oxygen Flow Rate (L/min) [ 2 AMBULATING with Oxygen #1] Oxygen Flow Rate (L/min) 2 Oxygen Delivery Method Nasal Cannula Weight: 83.5 kg Body Mass Index (BMI) 27.1 Intake & Output: Intake and Output for Last 24 Hours 04/23/21 04/24/21 04/25/21 23:59 23:59 23:59 Intake Total 1450 / 1650 1650 / 1950 700 / 700 Output Total 950 / 1250 700 / 850 775 / 775 Balance 500 / 400 950 / 1100 -75 / -75 Lab / Micro Data Result Diagrams: 04/25/21 06:30 04/25/21 06:30 Labs: Laboratory Results - last 24 hr 04/22/21 14:35: Diff Path Review Reviewed 04/24/21 05:46: Diff Path Review Reviewed 04/25/21 06:30: WBC 19.6 H, RBC 4.26 L, Hgb 12.5 L, Hct 38.3 L, MCV 89.9, MCH 29.3, MCHC 32.6, RDW Std Deviation 43.1, RDW Coeff of Makayla 13.2, Plt Count 285, MPV 11.1, Immature Gran % (Auto) 1.200 H, Neut % (Auto) 74.6 H, Lymph % (Auto) 9.8 L, [place] % (Auto) 14.1 H, Eos % (Auto) 0.1, Baso % (Auto) 0.2, Absolute Neuts (auto) 14.6 H, Absolute Lymphs (auto) 1.92, Nucleated RBC % 0 04/25/21 06:30: Sodium 136, Potassium 3.6, Chloride 101, Carbon Dioxide 28.0, Anion Gap 7, BUN 20 H, Creatinine 0.93, Estim Creat Clear Calc 79.19, Est GFR (MDRD) Af Amer 104, Est GFR (MDRD) Non-Af 86, BUN/Creatinine Ratio 21.5 H, Glucose 74, Calcium 8.1 L, Total Bilirubin 0.60, AST 20, ALT 36, Alkaline Phosphatase 101, Total Protein 6.2 L, Albumin 2.1 L, Globulin 4.1, Albumin/Globulin Ratio 0.5 L Micro: Microbiology 04/22/21 14:35 Blood Culture (Wb) - Anticubital Left Blood Culture - Preliminary No growth in 48 hours. 04/23/21 14:49 Urine, Clean Catch Legionella Antigen - Final 04/23/21 14:49 Urine, Clean Catch Streptococcus pneumoniae Antigen (M - Final 04/22/21 14:35 Nasal Secretion SARS-CoV-2 Antigen (Rapid) - Final Assessment & Plan Assessment/Plan (1) Dysphagia: QUALIFIERS: Dysphagia type: unspecified Qualified Code(s): R13.10 - Dysphagia, unspecified (2) Aphasia as late effect of stroke: (3) Acute respiratory failure with hypoxia: (4) Right upper lobe pneumonia: PLAN: Acute hypoxic respiratory failure secondary to multifocal pneumonia -Ambulatory pulse ox assessed and patient needing 2 L nasal cannula to maintain oxygen saturation greater than 88%. -Patient does not wear oxygen at baseline -CT of the chest is consistent with right upper lobe pneumonia with significant consolidation -Continue as needed bronchodilator therapy -Levaquin day 2 of 7 -Incentive spirometry as able -Check modified barium swallow with history of aspiration -Speech therapy consultation -Covid negative -Legionella and strep pneumo antigens are negative -Unable to produce a sputum -Discussed case with pulmonary and agree with need for MBS prior to discharge -Recommend outpatient follow-up with pulmonary in [address] chest in 6 to 8 weeks to reevaluate right upper lobe consolidation Leukocytosis -Slight trend up but clinically improved -Continue to monitor Chronic mild anemia -Stable -Continue to monitor -Patient is fully anticoagulated at baseline secondary to PAF PAF -Patient is currently in atrial fibrillation but rate is controlled -Continue amiodarone -Continue apixaban -Continue metoprolol History of stroke -Continue full anticoagulation -Continue Plavix -Continue risk factor modification -Patient with chronic expressive aphasia at baseline -Continue baclofen -Patient suffered stroke immediately postoperative from his CABG CAD/hypertension/hyperlipidemia/subclavian stenosis -Continue home medications -History of 5 vessel bypass in 2017 -Left subclavian stenosis has been stented GERD -Continue H2 flavia DVT prophylaxis -Continue apixaban CODE STATUS -Full code
[2021-04-25] MEDS: Potassium Chloride Oral Tablet 20 MEQ PO ×2 (08:35→11:26)
[2021-04-25] MEDS: Baclofen 10 MG Tablet 5 MG PO ×2 (08:35→11:26)
[2021-04-25] MEDS: APIXABAN 5 MG TABLET PO (08:36)
[2021-04-25] MEDS: amLODIPine 5 MG Tablet PO (08:37)
[2021-04-25] MEDS: Metoprolol Tartrate 25 MG Tablet 12.5 MG PO (08:37)
[2021-04-25] MEDS: Ezetimibe 10 MG Tablet PO (08:38)
[2021-04-25] MEDS: Clopidogrel Bisulfate 75 MG Tablet PO (08:39)
[2021-04-25] MEDS: Nystatin Powder 15gm Bottle 1 APPLIC TOPICAL (08:40)
[2021-04-25] MEDS: Escitalopram Oxalate 10 MG Tablet PO (08:40)
[2021-04-25] MEDS: hydroCHLOROthiazide 12.5mg 12.5 MG PO (08:40)
[2021-04-25] MEDS: LORazepam 0.5 MG Tablet PO (08:42)
[2021-04-25] MEDS: levoFLOXacin IV 750 MG/150 ML BAG 100 MG IV (08:49)
--- NOTE | 2021-04-25 10:39 | CASEMGMT ---
Addendum entered by Betina Escalante 04/25/21 12:50: TC back from Sabiha at [facility], patient accepted. Notified pt and . Addendum entered by Betina Escalante 04/25/21 12:23: TC to Narinder at [facility] to bring O2 as pt and now want to go home with HHC. RN CM in to pt room, spoke with who states they would like [facility]HS that they received in the past. She denied need for local in [facility] HHC list at this time. TC to [facility], left with referral for patient on Sabiha's line. Addendum entered by Betina Escalante 04/25/21 12:07: Received notification from therapy that patien could benefit from rehab in facility. TC to [facility] to cancel O2 order. Original Note: Pt qualifies for home O2, referral faxed to [facility]. TC to Faiza and she is aware of the referral. Tank to be delivered to the room.
--- NOTE | 2021-04-25 12:19 | CASEMGMT ---
Addendum entered by Elida Nichole 04/25/21 13:58: SW placed a call to pt's CM Nayeli at [facility] and left message updating her on discharge. SW faxed discharge paperwork to [facility]. Original Note: Social Work Note SW updated that pt was assist of 1 with PT/OT, pt's Eli agreeable to pt going somewhere for rehab. SW in to speak with pt and pt's Eli. SW introduced self and role at [facility]. SW spoke with pt and Eli about longterm. Eli states we were told pt could stay here at [facility] for rehab. KRISTEN explained that [facility] doesn't have any beds available and at this time, does not take pt's insurance ([employer]). Eli states pt will not be going to a longterm, states she will take pt home. Eli states she would like [facility] for PT/OT/ST. KRISTEN informed Eli that this worker will update RN CM. KRISTEN updated RN CM. Plan: Home with [facility] Elida Nichole SET UP AND CHARGER, PERSONAL CLOTHING LAUNDRY AIDE
--- NOTE | 2021-04-25 12:30 | DS.PCM_ITS ---
Providers Date of Admission: 04/22/21 Primary Care Physician: Dr. Conrad Arroyo MD Consultations 04/22/21 18:57 Consult: Computing Services Director / Pulmonary Medicine Routine Consulting Provider: Trip Ellis Reason for Consult: possible ILD (? Amiodarione induced), spouse requesting as well. EMERGENT Consult: No MD Notified: Yes Date Notified: 04/23/21 Time Notified: 06:32 Method of Notification: Text Reason For Visit: PNEUMONIA, HYPOXIA Diagnosis Discharge Diagnosis (1) Dysphagia: Status: Chronic Code(s): R13.10 - Dysphagia, unspecified Qualifiers: Dysphagia type: unspecified Qualified Code(s): R13.10 - Dysphagia, unspecified (2) Aphasia as late effect of stroke: Status: Chronic Code(s): I69.320 - Aphasia following cerebral infarction (3) Acute respiratory failure with hypoxia: Status: Acute Code(s): J96.01 - Acute respiratory failure with hypoxia (4) Right upper lobe pneumonia: Status: Acute Code(s): J18.9 - Pneumonia, unspecified organism Medications at Discharge Home Medications famotidine 20 mg PO QHS 12/21/16 baclofen 5 mg PO TID tab 02/05/17 escitalopram oxalate 10 mg PO DAILY tab 02/05/17 multivitamin,[id number] 1 tab PO DAILY 12/04/18 loratadine 10 mg PO DAILY 03/11/19 lorazepam 0.5 mg PO BID 03/11/19 fluticasone propionate 50 mcg/actuation nasal spray,suspension 2 spray INTRANASAL DAILY PRN PRN #18.2 ml 03/10/20 amiodarone 200 mg tablet 100 mg PO DAILY #15 tab 04/19/20 amlodipine 10 mg tablet 5 mg PO BID #30 tab 04/19/20 apixaban 5 mg tablet 5 mg PO BID #60 tab 04/19/20 atorvastatin 40 mg tablet 40 mg PO QHS #30 tab 04/19/20 clopidogrel 75 mg tablet 75 mg PO DAILY #30 tab 04/19/20 potassium chloride 10 mEq tablet,extended release 20 meq PO TID #90 tab 04/19/20 trazodone 50 mg tablet 100 mg PO QHS tab 04/19/20 albuterol sulfate 90 mcg/actuation aerosol inhaler 2 puff INHALATION Q6H PRN #18 g 01/19/21 metoprolol tartrate 25 mg tablet 12.5 mg PO BID #30 tab 04/19/21 benzonatate 100 mg PO TID PRN 04/22/21 ezetimibe 10 mg PO DAILY 04/22/21 hydrochlorothiazide 12.5 mg PO DAILY 04/22/21 sildenafil 50 mg PO PRN PRN 04/22/21 amoxicillin-pot clavulanate [Augmentin] 1 tab PO BID #20 tab 04/25/21 Hospital Course Summary of Care Provided Minutes Spent on Discharge: 35 Hospital Course: Patient is a 65-year-old gentleman with history of previous CVA with residual expressive aphasia admitted with progressive shortness of Acute hypoxic respiratory failure secondary to multifocal pneumonia suspected to be secondary to aspiration pneumonia ?Admitted to regular nursing floor managed with broad-spectrum antibiotic therapy as well as broad-spectrum antibiotic treatment with Levaquin. Levaquin was discontinued on discharge in view of patient being on amiodarone as well as trazodone with potential for significant QT prolongation. Patient was discharged home on Augmentin for a suspected aspiration pneumonia. Patient was also assessed for home oxygen on discharge which he did qualify Anemia - Secondary to chronic disorder monitoring H&H and transfuse if patient becomes symptomatic or hemoglobin falls below 7 Paroxysmal atrial fibrillation ?Rate controlled on amiodarone and on systemic anticoagulation with apixaban History of previous CVA ?With residual aphasia Coronary artery disease ?Status post CABG Anemia - Secondary to chronic disorder monitoring H&H and transfuse if patient becomes symptomatic or hemoglobin falls below 7 Hypertension - Blood pressure controlled, home medications continued with dose adjustment as needed Subclavian stenosis ?Per history GERD -Continue H2 flavia DVT prophylaxis -Continue apixaban CODE STATUS -Full code Physical Exam Narrative GENERAL: cooperative HEENT: Atraumatic; EYES; Anicteric, Normal Conjunctiva SKIN: No Rash PSYCH; Flat affect Weight / BMI Weight Weight: 83.5 kg Body Mass Index (BMI) 27.1 ABG / Lab / Microbiology Data Result Diagrams: 04/25/21 06:30 04/25/21 06:30 Laboratory: Laboratory Results - last 24 hr 04/22/21 14:35: Diff Path Review Reviewed 04/24/21 05:46: Diff Path Review Reviewed 04/25/21 06:30: WBC 19.6 H, RBC 4.26 L, Hgb 12.5 L, Hct 38.3 L, MCV 89.9, MCH 29.3, MCHC 32.6, RDW Std Deviation 43.1, RDW Coeff of Makayla 13.2, Plt Count 285, MPV 11.1, Immature Gran % (Auto) 1.200 H, Neut % (Auto) 74.6 H, Lymph % (Auto) 9.8 L, [place] % (Auto) 14.1 H, Eos % (Auto) 0.1, Baso % (Auto) 0.2, Absolute Neuts (auto) 14.6 H, Absolute Lymphs (auto) 1.92, Nucleated RBC % 0, Differential Comment COMMENT, Diff Path Review December04/25/21 06:30: Sodium 136, Potassium 3.6, Chloride 101, Carbon Dioxide 28.0, Anion Gap 7, BUN 20 H, Creatinine 0.93, Estim Creat Clear Calc 79.19, Est GFR (MDRD) Af Amer 104, Est GFR (MDRD) Non-Af 86, BUN/Creatinine Ratio 21.5 H, Glucose 74, Calcium 8.1 L, Total Bilirubin 0.60, AST 20, ALT 36, Alkaline Phosphatase 101, Total Protein 6.2 L, Albumin 2.1 L, Globulin 4.1, Albumin/Globulin Ratio 0.5 L Microbiology: Microbiology 04/22/21 14:35 Blood Culture (Wb) - Anticubital Left Blood Culture - Preliminary No growth in 48 hours. 04/23/21 14:49 Urine, Clean Catch Legionella Antigen - Final 04/23/21 14:49 Urine, Clean Catch Streptococcus pneumoniae Antigen (M - Final 04/22/21 14:35 Nasal Secretion SARS-CoV-2 Antigen (Rapid) - Final D/C Instructions Discharge Diet: Swallowing Precautions Discharge Activity: Return to Normal Activity Call your doctor if you observe: Fever of 101 or Higher, Shortness of breath, Fainting spells and Chest pain Meaningful Use Info Meaningful Use Diagnoses (Choose all that apply): None applicable Discharge Plan Admission Admit Date/Time: 04/22/21 17:57 Primary Reason for Your Visit: Pneumonia Attending Provider: Mic Aburto Primary Care Provider: Conrad Arroyo Consulting Providers: Trip Ellis Discharge Orders/Prescriptions Prescriptions: New amoxicillin-pot clavulanate [Augmentin] 875-125 mg tablet 1 tab PO BID Qty: 20 RF: 0 Continued Complete Multivitamin tablet 1 tab PO DAILY RF: 0 amiodarone 200 mg tablet 100 mg PO DAILY Qty: 15 RF: 12 amlodipine 10 mg tablet 5 mg PO BID Qty: 30 RF: 12 apixaban 5 mg tablet 5 mg PO BID Qty: 60 RF: 12 atorvastatin 40 mg tablet 40 mg PO QHS Qty: 30 RF: 11 clopidogrel 75 mg tablet 75 mg PO DAILY Qty: 30 RF: 12 potassium chloride 10 mEq tablet extended release 20 meq PO TID Qty: 90 RF: 12 fluticasone propionate 50 mcg/actuation spray,suspension 2 spray INTRANASAL DAILY PRN PRN (Reason: Allergies) Qty: 18.2 RF: 6 famotidine 20 MG tablet 20 mg PO QHS RF: 0 baclofen 10 MG tablet 5 mg PO TID RF: 0 escitalopram oxalate 10 MG tablet 10 mg PO DAILY RF: 0 lorazepam 0.5 MG tablet 0.5 mg PO BID RF: 0 loratadine 10 MG tablet 10 mg PO DAILY RF: 0 trazodone 50 mg tablet 100 mg PO QHS RF: 0 sildenafil 50 mg tablet 50 mg PO PRN PRN (Reason: Erectile Dysfunction) RF: 0 benzonatate 100 mg capsule 100 mg PO TID PRN (Reason: Cough) RF: 0 ezetimibe 10 mg tablet 10 mg PO DAILY RF: 0 hydrochlorothiazide 12.5 mg tablet 12.5 mg PO DAILY RF: 0 albuterol sulfate 90 mcg/actuation HFA aerosol inhaler 2 puff INHALATION Q6H PRN (Reason: shortness of breath or wheezing) Qty: 18 RF: 6 metoprolol tartrate 25 mg tablet 12.5 mg PO BID Qty: 30 RF: 12 Referrals / Follow Up: Conrad Arroyo MD [Primary Care Provider] - In 1 Week Disposition Disposition (needs filled in before D/C Order can be placed): Home Health Service Charges/Coding Visit Charges Inpatient E&M: 65687 Disch Hosp
--- NOTE | 2021-04-25 12:33 | PCM.PN.INT ---
Assessment & Plan Assessment/Plan (1) Multifocal pneumonia: (2) Chronic atrial fibrillation: (3) History of tracheostomy: (4) Mixed obstructive and restrictive ventilatory defect: (5) Aphasia as late effect of stroke: PLAN: RECOMMENDATIONS: 1. Continue Levaquin to complete 7 days of therapy. 2. Perform walking oximetry study prior to consideration for discharge home. 3. Continue as needed bronchodilator therapy. 4. The patient should follow-up in the pulmonary medicine clinic 2 weeks post discharge. 5. Recommend repeat CT chest in 6 to 8 weeks to document resolution of the right upper lobe consolidation. IMPRESSIONS: 1. Acute hypoxic respiratory insufficiency secondary to multifocal pneumonia Chest imaging demonstrated the presence of a predominant right upper lobe consolidation. Given the patient's history, this would be concerning for potential aspiration pneumonia. The patient is stable from an oxygenation perspective. He is on appropriate antimicrobial therapy, which I would recommend be continued for at least 7 days. The patient was evaluated by speech therapy without any issues identified. Ongoing supplemental oxygen need should be evaluated prior to discharge. The patient should follow-up in the pulmonary medicine clinic in 2 weeks. Ideally, repeat chest imaging should be completed in 6 to 8 weeks to document resolution of the patient's consolidation. 2. Hyperlipidemia/hypertension/history of protracted recovery following stroke/aphasia/chronic A. fib Complicates care, management, recovery and prognosis. Okay to continue with baseline medications from my perspective. This note was generated with [employer] dictation software. It may contain incorrect words, spelling, and punctuation that were not noted in checking the note before signing. Subjective Subjective The patient was seen and examined at the bedside this morning. Events from the last 24 hours have been reviewed. The patient is currently afebrile, hemodynamically stable and maintaining appropriate oxygen saturations on 2 L/min via nasal cannula. No issues were identified by speech therapy yesterday during their evaluation. Objective Data Objective Data The patient's most recent lab work, culture data and imaging studies have all been personally reviewed. Rapid coronavirus antigen testing was negative. Blood cultures have demonstrated no growth to date. Strep and urine Legionella antigens were negative. Vital Signs: Vital Signs Temp Pulse Resp BP Pulse Ox 98.6 F 62 16 137/65 H 88 04/25/21 08:21 04/25/21 09:27 04/25/21 08:21 04/25/21 08:21 04/25/21 12:17 Oxygen Flow Rate (L/min) [ 3 AMBULATING with Oxygen #2] Oxygen Flow Rate (L/min) [ 2 AMBULATING with Oxygen #1] Oxygen Flow Rate (L/min) 3 Oxygen Delivery Method Nasal Cannula Weight: 83.5 kg Body Mass Index (BMI) 27.1 Intake & Output: Intake and Output for Last 24 Hours 04/23/21 04/24/21 04/25/21 23:59 23:59 23:59 Intake Total 1450 / 1650 1650 / 1950 850 / 850 Output Total 950 / 1250 700 / 850 775 / 775 Balance 500 / 400 950 / 1100 75 / 75 Lab / Micro Data Attestation: I reviewed the patient's lab results. Result Diagrams: 04/25/21 06:30 04/25/21 06:30 Labs: Laboratory Results - last 24 hr 04/22/21 14:35: Diff Path Review Reviewed 04/24/21 05:46: Diff Path Review Reviewed 04/25/21 06:30: WBC 19.6 H, RBC 4.26 L, Hgb 12.5 L, Hct 38.3 L, MCV 89.9, MCH 29.3, MCHC 32.6, RDW Std Deviation 43.1, RDW Coeff of Makayla 13.2, Plt Count 285, MPV 11.1, Immature Gran % (Auto) 1.200 H, Neut % (Auto) 74.6 H, Lymph % (Auto) 9.8 L, [place] % (Auto) 14.1 H, Eos % (Auto) 0.1, Baso % (Auto) 0.2, Absolute Neuts (auto) 14.6 H, Absolute Lymphs (auto) 1.92, Nucleated RBC % 0, Differential Comment COMMENT, Diff Path Review December04/25/21 06:30: Sodium 136, Potassium 3.6, Chloride 101, Carbon Dioxide 28.0, Anion Gap 7, BUN 20 H, Creatinine 0.93, Estim Creat Clear Calc 79.19, Est GFR (MDRD) Af Amer 104, Est GFR (MDRD) Non-Af 86, BUN/Creatinine Ratio 21.5 H, Glucose 74, Calcium 8.1 L, Total Bilirubin 0.60, AST 20, ALT 36, Alkaline Phosphatase 101, Total Protein 6.2 L, Albumin 2.1 L, Globulin 4.1, Albumin/Globulin Ratio 0.5 L Micro: Microbiology 04/22/21 14:35 Blood Culture (Wb) - Anticubital Left Blood Culture - Preliminary No growth in 48 hours. 04/23/21 14:49 Urine, Clean Catch Legionella Antigen - Final 04/23/21 14:49 Urine, Clean Catch Streptococcus pneumoniae Antigen (M - Final 04/22/21 14:35 Nasal Secretion SARS-CoV-2 Antigen (Rapid) - Final Physical Exam Const alert and no apparent distress General Appearance: cooperative Exam Limitations: language barrier Nutritional Appearance: overweight HEENT normocephalic and head/scalp atraumatic Neck supple General: trachea midline Chest inspection of chest normal Resp Auscultation: diminished lung sounds; Negative for rales, rhonchi or wheezes Cardio regular rate and regular rhythm GI normal to inspection, nondistended, normoactive bowel sounds Extremity no clubbing, cyanosis or edema Skin no rashes or lesions noted Neuro Neuro Narrative: Baseline expressive aphasia Psych cooperative and affect normal Charges/Coding Visit Charges Inpatient E&M: 28929 Subs Hosp L2
--- NOTE | 2021-04-25 12:40 | PCM.DC ---
Discharge Instructions Diet Discharge Diet: Swallowing Precautions Dressing / Incision Call your doctor if you observe: Fever of 101 or Higher, Shortness of breath, Fainting spells and Chest pain Follow Up Care Test Results: Test results from this visit will be discussed in further detail at your follow-up appointment, if applicable. Discharge Plan Admission Admit Date/Time: 04/22/21 17:57 Primary Reason for Your Visit: Pneumonia Attending Provider: Mic Aburto Primary Care Provider: Conrad Arroyo Consulting Providers: Trip Ellis Discharge Orders/Prescriptions Prescriptions: New amoxicillin-pot clavulanate [Augmentin] 875-125 mg tablet 1 tab PO BID Qty: 20 RF: 0 Continued Complete Multivitamin tablet 1 tab PO DAILY RF: 0 amiodarone 200 mg tablet 100 mg PO DAILY Qty: 15 RF: 12 amlodipine 10 mg tablet 5 mg PO BID Qty: 30 RF: 12 apixaban 5 mg tablet 5 mg PO BID Qty: 60 RF: 12 atorvastatin 40 mg tablet 40 mg PO QHS Qty: 30 RF: 11 clopidogrel 75 mg tablet 75 mg PO DAILY Qty: 30 RF: 12 potassium chloride 10 mEq tablet extended release 20 meq PO TID Qty: 90 RF: 12 fluticasone propionate 50 mcg/actuation spray,suspension 2 spray INTRANASAL DAILY PRN PRN (Reason: Allergies) Qty: 18.2 RF: 6 famotidine 20 MG tablet 20 mg PO QHS RF: 0 baclofen 10 MG tablet 5 mg PO TID RF: 0 escitalopram oxalate 10 MG tablet 10 mg PO DAILY RF: 0 lorazepam 0.5 MG tablet 0.5 mg PO BID RF: 0 loratadine 10 MG tablet 10 mg PO DAILY RF: 0 trazodone 50 mg tablet 100 mg PO QHS RF: 0 sildenafil 50 mg tablet 50 mg PO PRN PRN (Reason: Erectile Dysfunction) RF: 0 benzonatate 100 mg capsule 100 mg PO TID PRN (Reason: Cough) RF: 0 ezetimibe 10 mg tablet 10 mg PO DAILY RF: 0 hydrochlorothiazide 12.5 mg tablet 12.5 mg PO DAILY RF: 0 albuterol sulfate 90 mcg/actuation HFA aerosol inhaler 2 puff INHALATION Q6H PRN (Reason: shortness of breath or wheezing) Qty: 18 RF: 6 metoprolol tartrate 25 mg tablet 12.5 mg PO BID Qty: 30 RF: 12 Referrals / Follow Up: Conrad Arroyo MD [Primary Care Provider] - In 1 Week Disposition Disposition (needs filled in before D/C Order can be placed): Home Health Service
[2021-04-25 13:30] LABS: Pathologist Review Reviewed
--- NOTE | 2021-04-27 13:08 | CASEMGMT ---
RN ABRAHAM Discharge Follow-up Phone Call: KAITY: Odin Strata: 3 Call Date: 04/27/21 Discharge Date: 04/25/21 Time of Call: 1300 Admitting Diagnosis: Acute respiratory failure 2/2 pneumonia. This RN CM reached out via phone for discharge follow-up. Noted pt to be aphasic per documentation. Pt's states pt has been doing well since discharge. States she has been in contact with Dr. Arroyo's office due to pt having a cough for which she states Dr. Arroyo is ordering her nebulizer treatments and cough syrup. Pt's reports pt to expectorate white sputum. erStates pt was to have been seen by PT at 1300 today but they have not yet arrived. Pt's expressed frustration that they have not arrived when they stated they would and that they have other appointments including one today at 1400 so they will need to reschedule the PT visit. This RN CM offered to contact [facility] to discuss which was agreeable to. This RN CM contacted Keyanna at [facility] and notified her of the 's concerns. Keyanna states she will notify the PT and their appointment time will be rescheduled. Pt's denied any further questions or concerns at this time. Humphrey Garza RN CM
== END 2021-04-25 13:38 | disposition home health service (06) | DRG 177 ==
LOC: ED 15:50 → MS3 18:27
PROVIDERS: Internal Medicine; Admitting Provider Internal Medicine; Emergency Provider Emergency Medicine; PCP Family Medicine; Visit Provider Internal Medicine
DX: J69.0 Pneumonitis due to inhalation of food and vomit (principal); J96.01 Acute respiratory failure with hypoxia; J44.0 Chronic obstructive pulmonary disease with (acute) lower respiratory infection; I48.20 Chronic atrial fibrillation, unspecified; I69.351 Hemiplegia and hemiparesis following cerebral infarction affecting right dominant side; J84.10 Pulmonary fibrosis, unspecified; I48.0 Paroxysmal atrial fibrillation; T38.0X5A Adverse effect of glucocorticoids and synthetic analogues, initial encounter; D72.829 Elevated white blood cell count, unspecified; Z20.822 Contact with and (suspected) exposure to COVID-19; I69.320 Aphasia following cerebral infarction; I25.10 Atherosclerotic heart disease of native coronary artery without angina pectoris; I10 Essential (primary) hypertension; E78.5 Hyperlipidemia, unspecified; R13.10 Dysphagia, unspecified; K21.9 Gastro-esophageal reflux disease without esophagitis; E66.3 Overweight; Z68.27 Body mass index [BMI] 27.0-27.9, adult; Z79.01 Long term (current) use of anticoagulants; Z79.02 Long term (current) use of antithrombotics/antiplatelets; Z79.899 Other long term (current) drug therapy; Z87.891 Personal history of nicotine dependence; Z95.1 Presence of aortocoronary bypass graft; Z86.14 Personal history of Methicillin resistant Staphylococcus aureus infection
CPT/HCPCS: 36415; 71045; 71250; 80048; 80053; 83605; 83880; 84145; 84484; 85025; 85652; 86140; 87040; 87426; 87449; 92610; 93005; 94640; 94762; 97162; 97166; 99251; 99285; J7030; A4216; G0463

== ENCOUNTER 2021-06-10 19:57 | Inpatient (IN) | payer MEDICARE, MEDICAID, SELFPAY ==
[2021-06-10] VITALS (9 sets, daily range): BP systolic 142–147; BP diastolic 64–73; PULSE 87–92; RESP 18–29; TEMP 36.6–37.9; O2SAT 92–97; BMI 26.2; BMI 27.1
--- NOTE | 2021-06-10 20:19 | EKG12_ITS ---
Test Reason : DYSRHYTHMIA Blood Pressure : / mmHG Vent. Rate : 073 BPM Atrial Rate : 073 BPM P-R Int : 212 ms QRS Dur : 092 ms QT Int : 436 ms P-R-T Axes : 056 -47 065 degrees QTc Int : 480 ms Sinus rhythm with 1st degree A-V block Left axis deviation Inferior infarct , age undetermined Nonspecific T wave abnormality Abnormal ECG Confirmed by LITO WHITMAN, OLVIN ([id number]), desk editor KHRIS HOPKINS ([id number]) on 06/13/2021 8:04:43 AM Referred By: PATTI Confirmed By:OLVIN MORSE MD
--- NOTE | 2021-06-10 20:21 | EX.ED.DYSGE1 ---
HPI History of Present Illness Chief Complaint: Shortness of Breath Detail of Chief Complaint: Symptoms similar to when he was diagnosed with pneumonia earlier this year Informant: spouse/S.O. Onset/Context/Timing Onset: Today Context: Sudden Onset Timing: Continuous Quality: Cough, decreased LOC, low pulse ox, wheezing Location: Respiratory Current Severity: Mild Maximum Severity: Moderate Worsened by: states work-up prior records Relieved by: Nothing Associated Symptoms Associated Symptoms: Limited history because of expressive aphasia due to stroke Narrative Narrative: Patient is a 65-year-old male who was a smoker until 2017. He has past medical history of COPD, pneumonia, left MCA stroke with expressive aphasia. He is dependent on his for care. He has history of coronary disease status post multivessel bypass. He is status post gastrostomy tube placement. Per old records has history hypertension, hyperlipidemia and respiratory failure. He currently wears oxygen at night. When asked if this was due to his COPD versus obstructive sleep apnea I was informed that she was told to place him on oxygen at night per his PCP. Prior similar symptoms: Yes (Diagnosed with pneumonia earlier this year) Recent Illness/Hospitalization: No PFSH PFSH Medical History Anemia Aphasia as late effect of stroke Atherosclerosis of coronary artery without angina pectoris Carotid artery disease Cerebral arterial aneurysm Chronic atrial fibrillation Confusion Debility Dysphagia HTN (hypertension) Hyperlipidemia Left acute arterial ischemic stroke, MCA (middle cerebral artery) (10/31/16) jail current use of amiodarone Lower resp. tract infection Mixed obstructive and restrictive ventilatory defect Respiratory failure Sepsis Smoker Stroke/cerebrovascular accident Home Medications famotidine 20 mg PO QHS 12/21/16 [History Last Taken 03/10/19] baclofen 5 mg PO TID tab 02/05/17 [Rx Last Taken 03/11/19] escitalopram oxalate 10 mg PO DAILY tab 02/05/17 [Rx Last Taken 03/11/19] multivitamin,[id number] 1 tab PO DAILY 12/04/18 [History Last Taken 03/11/19] loratadine 10 mg PO DAILY 03/11/19 [History Last Taken 03/11/19] lorazepam 0.5 mg PO BID 03/11/19 [History Last Taken 03/11/19] fluticasone propionate 50 mcg/actuation nasal spray,suspension 2 spray INTRANASAL DAILY PRN PRN #18.2 ml 03/10/20 [Rx Last Taken Unknown] amiodarone 200 mg tablet 100 mg PO DAILY #15 tab 04/19/20 [Rx Last Taken Unknown] amlodipine 10 mg tablet 5 mg PO BID #30 tab 04/19/20 [Rx Last Taken Unknown] apixaban 5 mg tablet 5 mg PO BID #60 tab 04/19/20 [Rx Last Taken Unknown] atorvastatin 40 mg tablet 40 mg PO QHS #30 tab 04/19/20 [Rx Last Taken Unknown] clopidogrel 75 mg tablet 75 mg PO DAILY #30 tab 04/19/20 [Rx Last Taken Unknown] potassium chloride 10 mEq tablet,extended release 20 meq PO TID #90 tab 04/19/20 [Rx Last Taken Unknown] trazodone 50 mg tablet 100 mg PO QHS tab 04/19/20 [History Last Taken Unknown] albuterol sulfate 90 mcg/actuation aerosol inhaler 2 puff INHALATION Q6H PRN #18 g 01/19/21 [Rx Last Taken Unknown] metoprolol tartrate 25 mg tablet 12.5 mg PO BID #30 tab 04/19/21 [Rx Last Taken Unknown] benzonatate 100 mg PO TID PRN 04/22/21 [History Last Taken Unknown] ezetimibe 10 mg PO DAILY 04/22/21 [History Last Taken Unknown] hydrochlorothiazide 12.5 mg PO DAILY 04/22/21 [History Last Taken Unknown] sildenafil 50 mg PO PRN PRN 04/22/21 [History Last Taken Unknown] amoxicillin-pot clavulanate [Augmentin] 1 tab PO BID #20 tab 04/25/21 [Rx Last Taken Unknown] doxycycline hyclate 100 mg PO BID 06/10/21 [History Last Taken Unknown] fluticasone propionate [Flonase Allergy Relief] 2 spray INTRANASAL DAILY 06/10/21 [History Last Taken Unknown] Allergy/AdvReac Type Severity Reaction Status Date / Time azithromycin Allergy Intermediate Hives Verified 06/10/21 20:03 [From Zithromax Z-Dayo] lisinopril Allergy Intermediate Hives and Verified 06/10/21 20:03 diarrhea Sulfa (Sulfonamide Allergy Hives Verified 06/10/21 20:03 Antibiotics) Family History Mother Diabetes Father AAA (abdominal aortic aneurysm) Surgical History History of gastrostomy tube placement (11/07/16) History of tracheostomy (11/07/16) 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 Social History (Updated 06/10/21 @ 20:[address] Jasen Dhillon MD) household members: spouse Smoking Status: Former smoker how long ago did patient quit smokin years ago, 2ppd second hand exposure: Yes alcohol intake: never substance use type: does not use caffeine: No ROS ROS ED Review of Systems ROS Unobtainable: other Details: Limited to expressive aphasia Constitutional Constitutional ED: Reports fever(s); Denies sweats ENT ENT ED: Denies rhinorrhea or sore throat Cardiovascular Cardiovascular: Reports palpitations Respiratory/Chest Respiratory/Chest: Reports cough, dyspnea, dyspnea on exertion and sputum Gastrointestinal Gastrointestinal: Denies diarrhea or vomiting Genitourinary Genitourinary ED: Denies hematuria or urinary frequency Musculoskeletal Musculoskeletal: Denies arthralgias, myalgias or neck pain Integumentary Denies rash Neurologic Neurologic: Reports weakness; Denies headache(s) Hematologic/Lymphatic Hematologic/Lymphatic: Denies anemia or easy bleeding Allergic/Immunologic Allergic/Immunologic ED: Denies mouth swelling or tongue swelling EXAM Physical Exam Const Vital Signs: 06/10/21 19:59 06/10/21 20:36 06/10/21 20:39 Temperature 98 F 98 F Temperature Source Temporal Temporal Pulse Rate 89 87 89 Respiratory Rate 18 28 H 18 Respiratory Effort Short of Breath Labored Respiratory Depth Shallow Respiratory Pattern Tachypnea Blood Pressure 144/64 H 144/64 H Blood Pressure Mean 90 90 Pulse Ox 92 97 92 Oxygen Delivery Method Room Air Nasal Cannula Nasal Cannula Oxygen Flow Rate (L/min) 4 4 06/10/21 20:41 06/10/21 21:03 06/10/21 21:12 Temperature 100.1 F H 100.1 F H Temperature Source Temporal Temporal Pulse Rate 89 Respiratory Rate 26 H Respiratory Effort Short of Breath Respiratory Depth Normal Respiratory Pattern Normal Blood Pressure 144/64 H Blood Pressure Mean 90 Pulse Ox 92 Oxygen Delivery Method Nasal Cannula Oxygen Flow Rate (L/min) 4 06/10/21 21:29 Temperature Temperature Source Pulse Rate 91 Respiratory Rate 18 Respiratory Effort Respiratory Depth Respiratory Pattern Blood Pressure 143/73 H Blood Pressure Mean 96 Pulse Ox 94 Oxygen Delivery Method Oxygen Flow Rate (L/min) Positive well nourished and well developed General Appearance ED: well developed, cyanotic and other Right-sided deficit due to prior stroke, tachypnea with hypoxia ; Negative for diaphoretic or pallor HEENT HEENT Narrative: Head is atraumatic normocephalic. Ears normal. Nares patent. Posterior pharynx not erythema or exudate. Eyes PERRL and EOMs intact bilaterally General Eye ED: Negative for pale conjunctiva or scleral icterus Neck no lymphadenopathy, supple and no JVD Neck Narrative: Trachea is midline. There is no inspiratory or expiratory stridor. Chest Wall inspection of chest normal and palpation of chest normal Chest: other There is a well-healed mid sternotomy scar noted. Resp No normal respiratory effort and No clear to auscultation bilaterally Auscultation: wheezes expiratory wheezes and scattered wheezes and diminished lung sounds Cardio regular rate, regular rhythm, S1 normal heart sound, S2 normal heart sound and no murmurs GI normal to inspection, nondistended, normoactive bowel sounds, non-tender and non-distended GI Narrative: Well-healed scars noted. Palpation: soft Back/Spine no CVA tenderness Thoracic Spine / Upper Back: Negative for thoracic spinal tenderness or paraspinal muscle tenderness Extremity Negative for normal to inspection General Extremety ED: Yes edema; Negative for tenderness General Extremity: edema Neuro No oriented x3, No CN's II-XII intact bilaterally and No no sensory deficits noted Sensorium / Orientation: alert and orientation impaired Motor Exam: Negative for strength 5/5 throughout Psych Negative for mental status grossly normal Skin no rashes or lesions noted and no wounds General Skin Exam: Negative for jaundice or pallor MDM MDM MDM Narrative Medical decision making narrative: With productive cough, wheezing, tachypnea and fever per spouse need to evaluate for Covid, purulent bronchitis/exacerbate COPD, pneumonia. Since he is pulse ox was as low as 87% he was placed on O2 via nasal cannula. VBG was obtained to rule out CO2 retention. Chest x-ray to rule out pneumonia versus other pulmonary concerns. EKG to rule out cardiac ischemia. Appropriate blood work to assess for endorgan dysfunction if he has a source of infection to evaluate for severe sepsis with organ dysfunction. He will receive DuoNeb and albuterol for his wheezing as well as Solu-Medrol. Since patient has elevated white count, elevated lactate and cultures have been drawn will administer 750 mg levofloxacin IV piggyback to treat for possible pneumonia. Lab Data Attestation: I reviewed the patient's lab results. Lab results narrative: White count evaded with shift. There is no bandemia. Coags are slightly elevated. Electrolyte panel is unremarkable. Liver enzymes are unremarkable. Lactate is slightly elevated 2.2. This could be due to hypoxia. Urine macro is remarkable for leukoesterase, occult blood and ketones. Patient does have soon sirs criteria. Suspect his lactic acidosis is due to hypoxia. There is no evidence of endorgan dysfunction. Hospitalist was notified. He will see patient. Labs: Laboratory Results - last 24 hr 06/10/21 06/10/21 06/10/21 20:30 20:30 20:30 WBC 19.7 H RBC 3.95 L Hgb 11.5 L Hct 35.7 L MCV 90.4 MCH 29.1 MCHC 32.2 RDW Std Deviation 44.3 H RDW Coeff of Makayla 13.4 Plt Count 383 MPV 10.1 Immature Gran % (Auto) 1.500 H Neut % (Auto) 75.1 H Lymph % (Auto) 10.9 L [place] % (Auto) 10.2 H Eos % (Auto) 1.8 Baso % (Auto) 0.5 Absolute Neuts (auto) 14.7 H Absolute Lymphs (auto) 2.15 Nucleated RBC % 0.2 Differential Comment SCANNED Diff Path Review December foll PT 16.4 H INR 1.4 APTT 38.7 H Sodium 137 Potassium 3.5 Chloride 104 Carbon Dioxide 27.0 Anion Gap 6 BUN 13 Creatinine 1.05 Estim Creat Clear Calc 70.14 Est GFR (MDRD) Af Amer 91 Est GFR (MDRD) Non-Af 75 BUN/Creatinine Ratio 12.4 Glucose 114 H Lactic Acid Calcium 8.8 Total Bilirubin 0.80 AST 23 ALT 29 Alkaline Phosphatase 151 H Total Protein 7.7 Albumin 2.5 L Globulin 5.2 H Albumin/Globulin Ratio 0.5 L Urine Color Urine Clarity Urine pH Ur Specific [place] Urine Protein Urine Glucose (UA) Urine Ketones Urine Occult Blood Urine Nitrite Urine Bilirubin Urine Urobilinogen Ur Leukocyte Esterase Urine RBC Urine WBC Ur Squamous Epith Cells Urine Bacteria Urine Mucus 06/10/21 06/10/21 20:30 20:35 WBC RBC Hgb Hct MCV MCH MCHC RDW Std Deviation RDW Coeff of Makayla Plt Count MPV Immature Gran % (Auto) Neut % (Auto) Lymph % (Auto) [place] % (Auto) Eos % (Auto) Baso % (Auto) Absolute Neuts (auto) Absolute Lymphs (auto) Nucleated RBC % Differential Comment Diff Path Review PT INR APTT Sodium Potassium Chloride Carbon Dioxide Anion Gap BUN Creatinine Estim Creat Clear Calc Est GFR (MDRD) Af Amer Est GFR (MDRD) Non-Af BUN/Creatinine Ratio Glucose Lactic Acid 2.2 H* Calcium Total Bilirubin AST ALT Alkaline Phosphatase Total Protein Albumin Globulin Albumin/Globulin Ratio Urine Color Yellow Urine Clarity Clear Urine pH 5.0 Ur Specific [place] 1.020 Urine Protein 100 H Urine Glucose (UA) Normal Urine Ketones 5 H Urine Occult Blood 10 H Urine Nitrite Negative Urine Bilirubin Negative Urine Urobilinogen 1 H Ur Leukocyte Esterase 25 H Urine RBC 0 SEEN Urine WBC 0-5 SEEN Ur Squamous Epith Cells 0 SEEN Urine Bacteria 0 SEEN Urine Mucus 0 SEEN Radiography Chest X-Ray - ED: 1 View and Read by ED Physician (There is increased interstitial markings on the right. The interstitial markings in the right upper lobe have improved/resolved since April 22.) Diagnostic Testing: Clinical Impression(s) from Imaging Studies Chest X-Ray 06/10/21 21:18 IMPRESSION: Possibly right lower lung pneumonia, residual versus recurrent versus postinflammatory scarring. Consider CT chest for definitive evaluation. Electronically Signed: Adeola Freeman MD at 21:37 EDT Tel , Service support , EKG Initial EKG: Attestation: I personally reviewed and interpreted this EKG as follows: Interpretation: Sinus Rhythm (Sinus rhythm with ventricular 73 and first-degree AV block. ID interval 212 ms. QRS duration is 92 ms. QT duration 436 ms. [place] to the left. There is artifact noted from breathing.) Discharge Plan Triage Chief Complaint: Shortness of Breath ED Provider: Jasen Dhillon Dx/Rx/DC Orders Clinical Impression: Sepsis, Acute respiratory failure with hypoxia, Asthma exacerbation in COPD, Infiltrate of lower lobe of right lung present on imaging study Prescriptions: No Action Complete Multivitamin tablet 1 tab PO DAILY RF: 0 amiodarone 200 mg tablet 100 mg PO DAILY Qty: 15 RF: 12 amlodipine 10 mg tablet 5 mg PO BID Qty: 30 RF: 12 apixaban 5 mg tablet 5 mg PO BID Qty: 60 RF: 12 atorvastatin 40 mg tablet 40 mg PO QHS Qty: 30 RF: 11 clopidogrel 75 mg tablet 75 mg PO DAILY Qty: 30 RF: 12 potassium chloride 10 mEq tablet extended release 20 meq PO TID Qty: 90 RF: 12 fluticasone propionate 50 mcg/actuation spray,suspension 2 spray INTRANASAL DAILY PRN PRN (Reason: Allergies) Qty: 18.2 RF: 6 famotidine 20 MG tablet 20 mg PO QHS RF: 0 baclofen 10 MG tablet 5 mg PO TID RF: 0 escitalopram oxalate 10 MG tablet 10 mg PO DAILY RF: 0 lorazepam 0.5 MG tablet 0.5 mg PO BID RF: 0 loratadine 10 MG tablet 10 mg PO DAILY RF: 0 trazodone 50 mg tablet 100 mg PO QHS RF: 0 sildenafil 50 mg tablet 50 mg PO PRN PRN (Reason: Erectile Dysfunction) RF: 0 benzonatate 100 mg capsule 100 mg PO TID PRN (Reason: Cough) RF: 0 ezetimibe 10 mg tablet 10 mg PO DAILY RF: 0 hydrochlorothiazide 12.5 mg tablet 12.5 mg PO DAILY RF: 0 amoxicillin-pot clavulanate [Augmentin] 875-125 mg tablet 1 tab PO BID Qty: 20 RF: 0 doxycycline hyclate 100 mg capsule 100 mg PO BID RF: 0 fluticasone propionate [Flonase Allergy Relief] 50 mcg/actuation [place],Suspension 2 spray INTRANASAL DAILY RF: 0 albuterol sulfate 90 mcg/actuation HFA aerosol inhaler 2 puff INHALATION Q6H PRN (Reason: shortness of breath or wheezing) Qty: 18 RF: 6 metoprolol tartrate 25 mg tablet 12.5 mg PO BID Qty: 30 RF: 12 Primary Care Provider: Conrad Arroyo Referrals: Conrad Arroyo MD [Primary Care Provider] - Disposition Disposition: Acute Care [facility]
[2021-06-10] MEDS: Ipratropium/Albuterol Sulfate 3 ML AMPUL.NEB INHALATION (20:36)
[2021-06-10] MEDS: Albuterol 2.5 MG/3 ML VIAL.NEB. INHALATION ×3 (20:36→21:09)
[2021-06-10 20:48] LABS: Bacteria 0 SEEN /hpf (None Seen); Mucous, Urine 0 SEEN /hpf (<or=2+); Red Blood Cells-Urine 0 SEEN /hpf (0-5); Squamous Epithelial Cells - UA 0 SEEN /hpf (0-5)
[2021-06-10 20:50] LABS: Absolute Lymphocyte Count 2.15 X10^3/uL (0.83-4.51); Absolute Neutrophil Count 14.7 X10^3/uL (2.0-7.7); Basophil% 0.5 % (0-1); Eosinophil# 0.35 X10^3/uL; Eosinophils% 1.8 % (0-5); Hematocrit 35.7 % (40-54); Hemoglobin 11.5 g/dL (13.0-16.5); Lymphocyte # 2.15 X10^3/ul (0.83-4.51); Lymphocyte % 10.9 % (19-41); Mean Corp Hgb Conc 32.2 g/dL (32-36); Mean Corpuscular Hgb 29.1 pg (27.0-32.0); Mean Corpuscular Volume 90.4 fL (80-94); Mean Platelet Vol. 10.1 fl (6.2-12.0); Monocyte# 2.01 X10^3/uL; Monocyte% 10.2 % (0-10); NRBC Flagged by Analyzer 0.2 % (0-5); Neutrophil # 14.74 X10^3/uL (2.7-7.7); Neutrophil % 75.1 % (47-70); POSITIVE DIFFERENTIAL YES; Platelet Count 383 K/mm3 (150-450); RBC Distribution Width CV 13.4 % (11.6-14.6); RBC Distribution Width SD 44.3 fl (35.1-43.9); Red Blood Count 3.95 M/mm3 (4.6-6.2); White Blood Count 19.7 K/mm3 (4.4-11.0)
[2021-06-10 20:52] LABS: Color, Urine Yellow (Yellow); Glucose, Dipstick Normal (Normal); Ketone-Dipstick 5 mg/dl (Negative); Leukocyte Esterase-Dipstick 25 /ul (Negative); Nitrite-Dipstick Negative (Negative); Occult Blood-Urine 10 /ul (Negative); Protein-Dipstick 100 mg/dl (Negative); Urine Bilirubin Dipstick Negative (Negative); Urine Clarity Clear (Clear); Urine Urobilinogen 1 mg/dl (Normal)
[2021-06-10 20:55] LABS: Differential Indicated SCAN CRITERIA MET
[2021-06-10 21:07] LABS: International Normalized Ratio 1.4; Prothrombin Time (Protime)PT. 16.4 SECONDS (11.7-14.9)
[2021-06-10 21:08] LABS: ALB/GLOB Ratio 0.5 RATIO (0.9-2.4); AST(SGOT) 23 U/L (15-37); Alanine Aminotransfer ALT/SGPT 29 U/L (16-61); Albumin, Serum 2.5 g/dL (3.2-5.0); Alkaline Phosphatase 151 U/L (45-117); Anion Gap 6 (5-15); BUN 13 mg/dL (7-18); BUN/Creat Ratio 12.4 RATIO (10-20); Calcium,Total 8.8 mg/dL (8.5-10.1); Chloride 104 mmol/L (98-107); Creatinine, Serum 1.05 mg/dL (0.70-1.30); EST Glomerular Filtration Rate 75 mL/min (>60); Est Glom Filt Rate - Afr Amer 91 mL/min (>60); Estimated Creatinine Clearance 70.14 ml/min; Globulin 5.2 g/dL (2.2-4.2); Glucose 114 mg/dL (74-106); Partial Thromboplast Time 38.7 Seconds (24.1-36.2); Potassium 3.5 mmol/L (3.5-5.1); Protein, Total 7.7 g/dL (6.4-8.2); Sodium Level 137 mmol/L (136-145)
[2021-06-10 21:11] LABS: Lactic Acid 2.2 mmol/L (0.4-1.9)
[2021-06-10 21:16] LABS: White Blood Cells 0-5 SEEN /hpf (0-5)
--- NOTE | 2021-06-10 21:18 | RAD_ITS ---
STUDY: X-RAY CHEST REASON FOR EXAM: Male, 65 years old. Cough, wheezing, hypoxia TECHNIQUE: Frontal portable view of the chest COMPARISON: April FINDINGS: Lungs are mildly emphysematous with increased interstitial markings in the right lower lung and residual ill-defined opacity in the right upper lobe. There is no pneumothorax, pulmonary edema, cardiac megaly or pleural effusions. There are sternotomy wires and bypass. RAD/Chest 1 View (Portable) IMPRESSION: Possibly right lower lung pneumonia, residual versus recurrent versus postinflammatory scarring. Consider CT chest for definitive evaluation. Electronically Signed: Adeola Freeman MD at 21:37 EDT Tel , Service support ,
--- NOTE | 2021-06-10 21:19 | CPS ---
x3 Albuterol given to pt. in ED as well
[2021-06-10 21:22] LABS: Differential Comment SCANNED
[2021-06-10] MEDS: MethylPREDNISolone 125 MG/2 ML Vial IV (21:54)
[2021-06-10] MEDS: levoFLOXacin IV 750 MG/150 ML BAG 100 MG IV (21:54)
--- NOTE | 2021-06-10 23:08 | HP.PCM.HOS_ITS ---
HPI - General General Date of Admission: 06/10/21 Date of Service: 06/10/21 Chief Complaint: shortness of breath HPI Narrative ROBERTA ZEE, is a 65 M who presents with shortness of breath. Patient has oxygen that he has at night but has increased. Placed on oxygen throughout the day. History is obtained to the emergency room physician as well as the patient's , patient is compromised gets had a stroke and answers yes to every question. [facility] Medical History Anemia Aphasia as late effect of stroke Atherosclerosis of coronary artery without angina pectoris Carotid artery disease Cerebral arterial aneurysm Chronic atrial fibrillation Confusion Debility Dysphagia HTN (hypertension) Hyperlipidemia Left acute arterial ischemic stroke, MCA (middle cerebral artery) (10/31/16) [facility] current use of amiodarone Lower resp. tract infection Mixed obstructive and restrictive ventilatory defect Respiratory failure Sepsis Smoker Stroke/cerebrovascular accident Home Medications famotidine 20 mg PO QHS 12/21/16 [History Last Taken 03/10/19] baclofen 5 mg PO TID tab 02/05/17 [Rx Last Taken 03/11/19] escitalopram oxalate 10 mg PO DAILY tab 02/05/17 [Rx Last Taken 03/11/19] multivitamin,vs-jdsq-rsfkpgax 1 tab PO DAILY 12/04/18 [History Last Taken 03/11/19] loratadine 10 mg PO DAILY 03/11/19 [History Last Taken 03/11/19] lorazepam 0.5 mg PO BID 03/11/19 [History Last Taken 03/11/19] fluticasone propionate 50 mcg/actuation nasal spray,suspension 2 spray INTRANASAL DAILY PRN PRN #18.2 ml 03/10/20 [Rx Last Taken Unknown] amiodarone 200 mg tablet 100 mg PO DAILY #15 tab 04/19/20 [Rx Last Taken Unknown] amlodipine 10 mg tablet 5 mg PO BID #30 tab 04/19/20 [Rx Last Taken Unknown] apixaban 5 mg tablet 5 mg PO BID #60 tab 04/19/20 [Rx Last Taken Unknown] atorvastatin 40 mg tablet 40 mg PO QHS #30 tab 04/19/20 [Rx Last Taken Unknown] clopidogrel 75 mg tablet 75 mg PO DAILY #30 tab 04/19/20 [Rx Last Taken Unknown] potassium chloride 10 mEq tablet,extended release 20 meq PO TID #90 tab 04/19/20 [Rx Last Taken Unknown] trazodone 50 mg tablet 100 mg PO QHS tab 04/19/20 [History Last Taken Unknown] albuterol sulfate 90 mcg/actuation aerosol inhaler 2 puff INHALATION Q6H PRN #18 g 01/19/21 [Rx Last Taken Unknown] metoprolol tartrate 25 mg tablet 12.5 mg PO BID #30 tab 04/19/21 [Rx Last Taken Unknown] benzonatate 100 mg PO TID PRN 04/22/21 [History Last Taken Unknown] ezetimibe 10 mg PO DAILY 04/22/21 [History Last Taken Unknown] hydrochlorothiazide 12.5 mg PO DAILY 04/22/21 [History Last Taken Unknown] sildenafil 50 mg PO PRN PRN 04/22/21 [History Last Taken Unknown] amoxicillin-pot clavulanate [Augmentin] 1 tab PO BID #20 tab 04/25/21 [Rx Last Taken Unknown] doxycycline hyclate 100 mg PO BID 06/10/21 [History Last Taken Unknown] doxycycline hyclate 100 mg PO BID 06/10/21 [History Last Taken 06/10/21 09:00] fluticasone propionate [Flonase Allergy Relief] 2 spray INTRANASAL DAILY 06/10/21 [History Last Taken Unknown] Allergy/AdvReac Type Severity Reaction Status Date / Time azithromycin Allergy Intermediate Hives Verified 06/10/21 20:03 [From Zithromax Z-Dayo] lisinopril Allergy Intermediate Hives and Verified 06/10/21 20:03 diarrhea Sulfa (Sulfonamide Allergy Hives Verified 06/10/21 20:03 Antibiotics) Family History Mother Diabetes Father AAA (abdominal aortic aneurysm) Surgical History History of gastrostomy tube placement (11/07/16) History of tracheostomy (11/07/16) 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 Social History household members: spouse Smoking Status: Former smoker how long ago did patient quit smokin years ago, 2ppd second hand exposure: Yes alcohol intake: never substance use type: does not use caffeine: No ROS Review of Systems ROS Unobtainable: due to encephalopathy Vital Signs Vital Signs Vital Signs: 06/10/21 19:59 06/10/21 20:36 06/10/21 20:39 Temperature 36.6 C 36.6 C Temperature Source Temporal Temporal Pulse Rate 89 87 89 Respiratory Rate 18 28 H 18 Respiratory Effort Short of Breath Labored Respiratory Depth Shallow Respiratory Pattern Tachypnea Blood Pressure 144/64 H 144/64 H Blood Pressure Mean 90 90 Pulse Ox 92 97 92 Oxygen Delivery Method Room Air Nasal Cannula Nasal Cannula Oxygen Flow Rate (L/min) 4 4 06/10/21 20:41 06/10/21 21:03 06/10/21 21:12 Temperature 37.8 C H 37.8 C H Temperature Source Temporal Temporal Pulse Rate 89 Respiratory Rate 26 H Respiratory Effort Short of Breath Respiratory Depth Normal Respiratory Pattern Normal Blood Pressure 144/64 H Blood Pressure Mean 90 Pulse Ox 92 Oxygen Delivery Method Nasal Cannula Oxygen Flow Rate (L/min) 4 06/10/21 21:29 06/10/21 21:54 Temperature 37.9 C H Temperature Source Oral Pulse Rate 91 92 Respiratory Rate 18 29 H Respiratory Effort Respiratory Depth Respiratory Pattern Blood Pressure 143/73 H 147/72 H Blood Pressure Mean 96 97 Pulse Ox 94 97 Oxygen Delivery Method Nasal Cannula Oxygen Flow Rate (L/min) 3 Weight Weight: 83.2 kg Body Mass Index (BMI) 27.1 Physical Exam Const Constitutional Narrative: Awake. No acute distress. Afebrile. Eyes PERRL Eyes Narrative: No icterus Neck no lymphadenopathy and no JVD Resp normal respiratory effort and no retractions Resp Narrative: Crackles in right lower lobe Cardio regular rate, regular rhythm, S1 normal heart sound and S2 normal heart sound GI normal to inspection, nondistended, normoactive bowel sounds, soft to palpation, non-tender and non-distended Extremity normal to inspection Skin no rashes or lesions noted and no wounds Neuro Neuro Narrative: Perseverates on saying yes. Sensorium / Orientation: awake Results Lab / Micro Data Attestation: I reviewed the patient's lab results. Result Diagrams: 06/10/21 20:30 06/10/21 20:30 Labs: Laboratory Results - last 24 hr 06/10/21 20:30: WBC 19.7 H, RBC 3.95 L, Hgb 11.5 L, Hct 35.7 L, MCV 90.4, MCH 29.1, MCHC 32.2, RDW Std Deviation 44.3 H, RDW Coeff of Makayla 13.4, Plt Count 383, MPV 10.1, Immature Gran % (Auto) 1.500 H, Neut % (Auto) 75.1 H, Lymph % (Auto) 10.9 L, [place] % (Auto) 10.2 H, Eos % (Auto) 1.8, Baso % (Auto) 0.5, Absolute Mark ts (auto) 14.7 H, Absolute Lymphs (auto) 2.15, Nucleated RBC % 0.2, Differential Comment SCANNED, Diff Path Review December06/10/21 20:30: PT 16.4 H, INR 1.4, APTT 38.7 H 06/10/21 20:30: Sodium 137, Potassium 3.5, Chloride 104, Carbon Dioxide 27.0, Anion Gap 6, BUN 13, Creatinine 1.05, Estim Creat Clear Calc 70.14, Est GFR (MDRD) Af Amer 91, Est GFR (MDRD) Non-Af 75, BUN/Creatinine Ratio 12.4, Glucose 114 H, Calcium 8.8, Total Bilirubin 0.80, AST 23, ALT 29, Alkaline Phosphatase 151 H, Total Protein 7.7, Albumin 2.5 L, Globulin 5.2 H, Albumin/Globulin Ratio 0.5 L 06/10/21 20:30: Lactic Acid 2.2 H* 06/10/21 20:35: Urine Color Yellow, Urine Clarity Clear, Urine pH 5.0, Ur Specific [place] 1.020, Urine Protein 100 H, Urine Glucose (UA) Normal, Urine Ketones 5 H, Urine Occult Blood 10 H, Urine Nitrite Negative, Urine Bilirubin Negative, Urine Urobilinogen 1 H, Ur Leukocyte Esterase 25 H, Urine RBC 0 SEEN, Urine WBC 0-5 SEEN, Ur Squamous Epith Cells 0 SEEN, Urine Bacteria 0 SEEN, Urine Mucus 0 SEEN Micro: Microbiology 06/10/21 20:30 Nasal Secretion SARS-CoV-2 Antigen (Rapid) - Final EKG Initial EKG: Attestation: I personally reviewed and interpreted this EKG as follows: Prior EKG tracings: available for review EKG Rhythm Intrepretation: Sinus Rhythm Radiology Impression Chest X-Ray 06/10/21 21:18 IMPRESSION: Possibly right lower lung pneumonia, residual versus recurrent versus postinflammatory scarring. Consider CT chest for definitive evaluation. Electronically Signed: Adeola Freeman MD at 21:37 EDT Tel , Service support , Assessment & Plan Assessment/Plan (1) Acute respiratory failure with hypoxia: (2) Asthma exacerbation in COPD: (3) Infiltrate of lower lobe of right lung present on imaging study: PLAN: 1. Acute hypoxic respiratory failure * Progressively getting worse at home was placed on oxygen throughout the day. * Currently on 3 L * Due to possible pneumonia as well as COPD exacerbation * Wean oxygen as able * Does have oxygen at home but only uses 2 L at night 2. Possible aspiration pneumonia * Infiltrated from April appears to be cleared up * May be new infiltrate in the right lower lobe * Did receive the levofloxacin in the emergency room. I am not going to continue that because the patient is on amiodarone * Unasyn * Pulmonary toilet 3. Possible acute exacerbation of COPD * Bronchodilators as well as steroids 4. A. fib * Currently normal sinus * Anticoagulated with apixaban * Continue with amiodarone and metoprolol tartrate 5. History of left MCA stroke * Complicates care and recovery 6. VTE prophylaxis: Not indicated discussed patient is on anticoagulation. 7. CODE STATUS: Addressed with patient's . Patient is DNR Comfort Care arrest but okay for intubation. Charges/Coding Visit Charges Inpatient E&M: 17108 Init Hosp L3
[2021-06-11] VITALS (12 sets, daily range): BP systolic 114–142; BP diastolic 69–83; PULSE 62–92; RESP 16–20; TEMP 36.3–36.6; O2SAT 91–98
[2021-06-11 00:45] LABS: Reflex Lactate? Y
[2021-06-11] MEDS: APIXABAN 5 MG TABLET PO ×2 (01:16→11:13)
[2021-06-11] MEDS: LORazepam 0.5 MG Tablet PO ×3 (01:16→23:25)
[2021-06-11] MEDS: Atorvastatin Calcium 40 MG Tablet PO ×2 (01:16→23:21)
[2021-06-11] MEDS: traZODone 100 MG Tablet PO ×2 (01:16→23:25)
[2021-06-11] MEDS: Baclofen 10 MG Tablet 5 MG PO ×4 (01:16→23:20)
[2021-06-11] MEDS: Famotidine 20 MG Tablet PO ×2 (01:16→23:21)
[2021-06-11] MEDS: amLODIPine 5 MG Tablet PO ×3 (01:17→23:21)
[2021-06-11] MEDS: Metoprolol Tartrate 25 MG Tablet 12.5 MG PO ×3 (01:17→23:21)
[2021-06-11 06:58] LABS: Absolute Lymphocyte Count 0.93 X10^3/uL (0.83-4.51); Absolute Neutrophil Count 13.6 X10^3/uL (2.0-7.7); Basophil# 0.03 X10^3/uL; Basophil% 0.2 % (0-1); Eosinophil# 0.01 X10^3/uL; Eosinophils% 0.1 % (0-5); Hematocrit 33.7 % (40-54); Hemoglobin 10.9 g/dL (13.0-16.5); Lymphocyte # 0.93 X10^3/ul (0.83-4.51); Lymphocyte % 6.1 % (19-41); Mean Corp Hgb Conc 32.3 g/dL (32-36); Mean Corpuscular Hgb 29.5 pg (27.0-32.0); Mean Corpuscular Volume 91.1 fL (80-94); Mean Platelet Vol. 10.2 fl (6.2-12.0); Monocyte# 0.34 X10^3/uL; Monocyte% 2.2 % (0-10); NRBC Flagged by Analyzer 0.1 % (0-5); Neutrophil # 13.63 X10^3/uL (2.7-7.7); Neutrophil % 89.8 % (47-70); Platelet Count 318 K/mm3 (150-450); RBC Distribution Width CV 13.2 % (11.6-14.6); RBC Distribution Width SD 43.4 fl (35.1-43.9); White Blood Count 15.2 K/mm3 (4.4-11.0)
[2021-06-11 07:19] LABS: Anion Gap 6 (5-15); BUN 12 mg/dL (7-18); BUN/Creat Ratio 14.3 RATIO (10-20); Calcium,Total 8.6 mg/dL (8.5-10.1); Chloride 106 mmol/L (98-107); Creatinine, Serum 0.84 mg/dL (0.70-1.30); EST Glomerular Filtration Rate 98 mL/min (>60); Est Glom Filt Rate - Afr Amer 118 mL/min (>60); Estimated Creatinine Clearance 87.67 ml/min; Glucose 163 mg/dL (74-106); Potassium 4.3 mmol/L (3.5-5.1); Sodium Level 139 mmol/L (136-145)
--- NOTE | 2021-06-11 07:40 | PCM.PN.HOSP ---
Subjective Subjective Patient is a 65-year-old male admitted with shortness of breath and assessment of acute hypoxic respiratory failure made. Imaging studies obtained on admission demonstrated possibly right lower lobe pneumonia residual versus recurrent versus postinflammatory scarring. An assessment of acute hypoxic respiratory failure secondary to suspected aspiration pneumonia made started on Unasyn admitted to regular nursing for further management Objective Data Objective Data Vital Signs: Vital Signs Temp Pulse Resp BP Pulse Ox 98 F 64 16 128/76 H 94 06/11/21 04:30 06/11/21 04:30 06/11/21 04:30 06/11/21 04:30 06/11/21 04:30 Oxygen Flow Rate (L/min) 4 Oxygen Delivery Method Nasal Cannula Weight: 83.2 kg Body Mass Index (BMI) 27.1 Intake & Output: Intake and Output for Last 24 Hours 06/09/21 06/10/21 06/11/21 23:59 23:59 22:59 Intake Total 150 / 150 112 / 112 Output Total 575 / 575 Balance 150 / -25 -463 / -463 Lab / Micro Data Result Diagrams: 06/11/21 05:58 06/11/21 05:58 Labs: Laboratory Results - last 24 hr 06/10/21 20:30: WBC 19.7 H, RBC 3.95 L, Hgb 11.5 L, Hct 35.7 L, MCV 90.4, MCH 29.1, MCHC 32.2, RDW Std Deviation 44.3 H, RDW Coeff of Makayla 13.4, Plt Count 383, MPV 10.1, Immature Gran % (Auto) 1.500 H, Neut % (Auto) 75.1 H, Lymph % (Auto) 10.9 L, [place] % (Auto) 10.2 H, Eos % (Auto) 1.8, Baso % (Auto) 0.5, Absolute Neuts (auto) 14.7 H, Absolute Lymphs (auto) 2.15, Nucleated RBC % 0.2, Differential Comment SCANNED, Diff Path Review December06/10/21 20:30: PT 16.4 H, INR 1.4, APTT 38.7 H 06/10/21 20:30: Sodium 137, Potassium 3.5, Chloride 104, Carbon Dioxide 27.0, Anion Gap 6, BUN 13, Creatinine 1.05, Estim Creat Clear Calc 70.14, Est GFR (MDRD) Af Amer 91, Est GFR (MDRD) Non-Af 75, BUN/Creatinine Ratio 12.4, Glucose 114 H, Calcium 8.8, Total Bilirubin 0.80, AST 23, ALT 29, Alkaline Phosphatase 151 H, Total Protein 7.7, Albumin 2.5 L, Globulin 5.2 H, Albumin/Globulin Ratio 0.5 L 06/10/21 20:30: Lactic Acid 2.2 H* 06/10/21 20:35: Urine Color Yellow, Urine Clarity Clear, Urine pH 5.0, Ur Specific [place] 1.020, Urine Protein 100 H, Urine Glucose (UA) Normal, Urine Ketones 5 H, Urine Occult Blood 10 H, Urine Nitrite Negative, Urine Bilirubin Negative, Urine Urobilinogen 1 H, Ur Leukocyte Esterase 25 H, Urine RBC 0 SEEN, Urine WBC 0-5 SEEN, Ur Squamous Epith Cells 0 SEEN, Urine Bacteria 0 SEEN, Urine Mucus 0 SEEN 06/11/21 01:04 EST: Lactic Acid 2.0 06/11/21 05:58: WBC 15.2 H, RBC 3.70 L, Hgb 10.9 L, Hct 33.7 L, MCV 91.1, MCH 29.5, MCHC 32.3, RDW Std Deviation 43.4, RDW Coeff of Makayla 13.2, Plt Count 318, MPV 10.2, Immature Gran % (Auto) 1.600 H, Neut % (Auto) 89.8 H, Lymph % (Auto) 6.1 L, [place] % (Auto) 2.2, Eos % (Auto) 0.1, Baso % (Auto) 0.2, Absolute Neuts (auto) 13.6 H, Absolute Lymphs (auto) 0.93, Nucleated RBC % 0.1 06/11/21 05:58: Sodium 139, Potassium 4.3, Chloride 106, Carbon Dioxide 27.0, Anion Gap 6, BUN 12, Creatinine 0.84, Estim Creat Clear Calc 87.67, Est GFR (MDRD) Af Amer 118, Est GFR (MDRD) Non-Af 98, BUN/Creatinine Ratio 14.3, Glucose 163 H, Calcium 8.6 Micro: Microbiology 06/11/21 00:05 Urine, Clean Catch Streptococcus pneumoniae Antigen (M - Final 06/11/21 00:05 Urine, Clean Catch Legionella Antigen - Final 06/10/21 20:30 Nasal Secretion SARS-CoV-2 Antigen (Rapid) - Final Radiography Diagnostic Testing: Radiology Impression Chest X-Ray 06/10/21 21:18 IMPRESSION: Possibly right lower lung pneumonia, residual versus recurrent versus postinflammatory scarring. Consider CT chest for definitive evaluation. Electronically Signed: Adeola Freeman MD at 21:37 EDT Tel , Service support , Physical Exam Narrative GENERAL: Has expressive aphasia HEENT: Atraumatic; EYES; Anicteric, Normal Conjunctiva NECK; supple, normal thyroid, RESPIRATORY: Diminished to auscultation CARDIOVASCULAR: Regular S1 S2, GI: soft, normoactive bowel sounds, : No Renal angle tenderness; EXTREMITIES: No edema, no clubbing, MUSCULOSKELETAL: no muscle waisting NEURO: Right-sided paralysis SKIN: No Rash PSYCH; Flat affect Assessment & Plan Assessment/Plan (1) Acute respiratory failure with hypoxia: (2) Asthma exacerbation in COPD: (3) Infiltrate of lower lobe of right lung present on imaging study: PLAN: Patient is a 65-year-old male admitted with shortness of breath and assessment of acute hypoxic respiratory failure made. Imaging studies obtained on admission demonstrated possibly right lower lobe pneumonia residual versus recurrent versus postinflammatory scarring. An assessment of acute hypoxic respiratory failure secondary to suspected aspiration pneumonia made started on Unasyn admitted to regular nursing for further management 1. Acute hypoxic respiratory failure -Secondary to suspected aspiration pneumonia admitted to regular nursing floor broad-spectrum antibiotic therapy with Unasyn started the cultures have been sent. Patient also placed on supplemental oxygen titrated to keep saturation greater than 90 2. Suspected aspiration pneumonia ?Management as discussed above 3. Lung mass ?CTA ordered as a result of an elevated D-dimer did demonstrate No evidence of pulmonary embolism or aortic dissection. She was however found to have2. Large mass in the right upper lobe as described above concerning for malignancy. Consult subsequently placed to pulmonary medicine 4. Paroxysmal A. fib -Rate controlled on amiodarone and systemic anticoagulation with apixaban 5. COPD with acute exacerbation -Bronchodilator treatment in addition to systemic steroids 7. History of left MCA stroke -With residual right-sided hemiplegia as well as expressive aphasia 8. Hypertension - Blood pressure controlled, home medications continued with dose adjustment as needed 9. Dyslipidemia -Patient is on statin therapy, continued at home dose 10. DVT prophylaxis ?On apixaban Charges/Coding Visit Charges Inpatient E&M: 64153 Subs Hosp L3
[2021-06-11] MEDS: Potassium Chloride Oral Tablet 20 MEQ PO ×3 (08:45→16:43)
[2021-06-11] MEDS: Multivitamins,Ther W-Minerals Tablet 1 TABLET PO (08:45)
[2021-06-11 08:56] LABS: D-Dimer Quantitative (DVT/PE) 2.49 FEU/ug/m (0.27-0.49)
--- NOTE | 2021-06-11 08:58 | CT_ITS ---
STUDY: CTA CHEST REASON FOR EXAM: Male, 65 years old. Elevated d-dimer RADIATION DOSAGE (If Supplied By Facility): CTDIvol = ( 10.88 ) mGy, DLP = ( 497.95 ) mGycm TECHNIQUE: The examination was performed with the intravenous administration of IV 100mL Isovue-370. Post-processing of the angiographic images was performed, with multiplanar reformation and 3D reconstruction. Individualized dose optimization techniques were used for this CT. COMPARISON: None. FINDINGS: Normal enhancement of the main pulmonary artery and right and left pulmonary arteries. Normal enhancement of the bilateral peripheral pulmonary arteries. There is no demonstrated pulmonary embolism. Artifacts are seen in the left lower lobe branches. There is atherosclerotic calcification of the aortic arch with tortuosity. There is no demonstrated aortic dissection. Sternal cerclage wires and vascular clips are present from a prior sternotomy and coronary artery bypass graft procedure (CABG). No evidence of pericardial effusion. Normal mediastinum. Prominent right hilar node measuring about 1.6 cm. Normal visualized trachea and bronchi. Large mass in the right lung apex measuring about 6 x 5.8 x 5 cm with hypodense area/necrosis. Adjacent right pleural reaction/thickening. Mild central and upper lobe bronchiectatic changes. Compressive atelectatic changes in the right lower lobe. Small right pleural effusion. Normal chest wall structures. Degenerative changes in the spine. The visualized portions of the upper abdomen demonstrate partially visualized low-density lesion/cyst in the right kidney. The adrenal glands are not enlarged. CT/CTA Chest W/WO Contrast IMPRESSION: 1. No evidence of pulmonary embolism or aortic dissection. 2. Large mass in the right upper lobe as described above concerning for malignancy. Focal consolidation is less likely. 3. Prominent nodes in the right hilum. 4. Small right pleural effusion. 5. Compressive atelectatic changes in right lower lobe. Electronically Signed: Dave Biggs MD at 10:09 EST Tel , Service support ,
[2021-06-11] MEDS: Loratadine 10 MG Tablet PO (11:10)
[2021-06-11] MEDS: Amiodarone 200 MG Tablet 100 MG PO (11:10)
[2021-06-11] MEDS: Ezetimibe 10 MG Tablet PO (11:11)
[2021-06-11] MEDS: Clopidogrel Bisulfate 75 MG Tablet PO (11:11)
[2021-06-11] MEDS: hydroCHLOROthiazide 12.5mg 12.5 MG PO (11:11)
[2021-06-11] MEDS: guaiFENesin 1,200 MG Tablet 1200 MG PO ×2 (11:13→23:21)
[2021-06-11] MEDS: Fluticasone 0.05% 1 SPRAY NASAL.SRY 2 SPRAY NASAL (11:16)
[2021-06-11] MEDS: Escitalopram Oxalate 20 MG Tablet PO (11:20)
[2021-06-11] MEDS: Nystatin Ointment 1 APPLIC TOPICAL ×2 (11:21→23:36)
--- NOTE | 2021-06-11 12:17 | PCM.HOSP.N ---
Hospitalist Note Had a discussion with patient's regarding his right apical mass and the suspicion for possible malignancy. Did discuss plan of care with the including consultation placed to pulmonary medicine (Dr. Mcgrath). Also ordered CT guided biopsy of the right apical mass. Patient is on board apixaban and Plavix held in anticipation of the procedure.
[2021-06-11] MEDS: Ipratropium/Albuterol Sulfate 3 ML AMPUL.NEB INHALATION (19:09)
[2021-06-12] VITALS (13 sets, daily range): BP systolic 102–135; BP diastolic 44–63; PULSE 48–76; RESP 18–24; TEMP 36.4–37.2; O2SAT 89–99
[2021-06-12] MEDS: Baclofen 10 MG Tablet 5 MG PO ×3 (04:53→21:35)
[2021-06-12 06:49] LABS: International Normalized Ratio 1.3; Prothrombin Time (Protime)PT. 15.8 SECONDS (11.7-14.9)
[2021-06-12 06:50] LABS: Partial Thromboplast Time 32.8 Seconds (24.1-36.2)
[2021-06-12] MEDS: Ipratropium/Albuterol Sulfate 3 ML AMPUL.NEB INHALATION ×5 (07:08→22:43)
--- NOTE | 2021-06-12 08:17 | EX.PCM.CONCC ---
Assessment & Plan Assessment/Plan (1) Infiltrate of lower lobe of right lung present on imaging study: (2) Mixed obstructive and restrictive ventilatory defect: (3) History of stroke: PLAN: RECOMMENDATIONS: 1. Wean supplemental oxygen as tolerated 2. Transition to supplemental oxygen [id number] 3. Reasonable to continue with empiric antibiotics for now 4. If requested, CT-guided biopsy could be completed as an outpatient given delay with anticoagulation 5. Increase activity as tolerated IMPRESSIONS: 1. Acute hypoxic respiratory insufficiency secondary to acute exacerbation of asthma/COPD Patient did have wheezing on exam. Agree with bronchodilators and Solu-Medrol for now. This potentially could be transition to prednisone therapy to complete a 5-day course. Empiric antibiotics are appropriate. It is unclear if patient has been attempting p.o., but has required a PEG tube in the past secondary to dysphagia. 2. Right upper lobe lung mass Right upper lobe findings have persisted for over a month and a half. This makes abscess versus malignancy highly probable. Patient would require a biopsy. However, patient is currently on Eliquis and Plavix therapy. The day. If hospitalist wants to discharge the patient, this could be arranged as an outpatient. Patient would be at risk for pneumothorax given emphysematous changes, but this does abut the pleura so risk is somewhat reduced. PET scan will not be helpful in this situation given the differential of infectious versus malignant. 3. Paroxysmal A. fib/history of MCA stroke/hypertension/dyslipidemia/limited history Complicates care, management, recovery and prognosis. Plavix and Eliquis will need to be held secondary to need for biopsy. Patient can continue other medications. Aphasia does limit ability to obtain history. HPI Consult Data Date of Consult: 06/12/21 HPI Narrative HPI Narrative: ROBERTA ZEE is a 65 M, with past medical history listed below, who presents to [facility] on 06/10/2021 secondary to progressive cough, wheezing and decreased level of consciousness. Patient reportedly wore supplemental oxygen at night only, but was noted to have decreased saturations during the day, so was brought to the ER for evaluation. Patient does have a history of a previous CVA leading to expressive aphasia and answers yes to everything. Patient does have an extensive smoking history of over 40 pack years, but quit in 2018. In the ER, patient was afebrile, but hypertensive at 144/64. Patient initially was 92% on room air, but required 4 L nasal cannula to maintain saturations. Patient's tachypnea did improve after initiation of supplemental oxygen. A chest x-ray was obtained showing a right upper lobe infiltrate. Patient was given DuoNeb, albuterol and Solu-Medrol. Patient was also given Levaquin therapy. Laboratory results showed a leukocytosis of 19.7, hemoglobin of 11.5, INR of 1.4 and a creatinine of 1.05. Alkaline phosphatase was slightly elevated, but otherwise liver function studies were unremarkable. Patient's lactate was elevated at 2.2 and UA was relatively unremarkable. Chest x-ray was followed by a CT scan showing a right upper lobe mass. Patient has been seen in our office previously by Dr. Mcgrath as recently as May 19. At that time, patient was noted to have a mixed ventilatory defect on PFTs. Patient also noted to have a previous right upper lobe infiltrate and follow-up testing had been ordered to document resolution. Patient is aphasic, so it is unclear if there are additional details at this time. Most of the history was from the medical record. Patient reportedly is on Eliquis and received a dose yesterday, along with Plavix. 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 tract infection Mixed obstructive and restrictive ventilatory defect Respiratory failure Sepsis Smoker Stroke/cerebrovascular accident Home Medications famotidine 20 mg PO QHS 12/21/16 [History Last Taken 03/10/19] baclofen 5 mg PO TID tab 02/05/17 [Rx Last Taken 03/11/19] multivitamin,[id number] 1 tab PO DAILY 12/04/18 [History Last Taken 03/11/19] loratadine 10 mg PO DAILY 03/11/19 [History Last Taken 03/11/19] lorazepam 0.5 mg PO BID 03/11/19 [History Last Taken 03/11/19] fluticasone propionate 50 mcg/actuation nasal spray,suspension 2 spray INTRANASAL DAILY PRN PRN #18.2 ml 03/10/20 [Rx Last Taken Unknown] amiodarone 200 mg tablet 100 mg PO DAILY #15 tab 04/19/20 [Rx Last Taken Unknown] amlodipine 10 mg tablet 5 mg PO BID #30 tab 04/19/20 [Rx Last Taken Unknown] apixaban 5 mg tablet 5 mg PO BID #60 tab 04/19/20 [Rx Last Taken Unknown] atorvastatin 40 mg tablet 40 mg PO QHS #30 tab 04/19/20 [Rx Last Taken Unknown] clopidogrel 75 mg tablet 75 mg PO DAILY #30 tab 04/19/20 [Rx Last Taken Unknown] potassium chloride 10 mEq tablet,extended release 20 meq PO TID #90 tab 04/19/20 [Rx Last Taken Unknown] trazodone 50 mg tablet 100 mg PO QHS tab 04/19/20 [History Last Taken Unknown] albuterol sulfate 90 mcg/actuation aerosol inhaler 2 puff INHALATION Q6H PRN #18 g 01/19/21 [Rx Last Taken Unknown] metoprolol tartrate 25 mg tablet 12.5 mg PO BID #30 tab 04/19/21 [Rx Last Taken Unknown] ezetimibe 10 mg PO DAILY 04/22/21 [History Last Taken Unknown] hydrochlorothiazide 12.5 mg PO DAILY 04/22/21 [History Last Taken Unknown] sildenafil 50 mg PO PRN PRN 04/22/21 [History Last Taken Unknown] doxycycline hyclate 100 mg PO BID 06/10/21 [History Last Taken 06/10/21 09:00] fluticasone propionate [Flonase Allergy Relief] 2 spray INTRANASAL DAILY 06/10/21 [History Last Taken Unknown] escitalopram oxalate 20 mg PO DAILY 06/11/21 [History Last Taken Unknown] Allergy/AdvReac Type Severity Reaction Status Date / Time azithromycin Allergy Intermediate Hives Verified 06/10/21 20:03 [From Zithromax Z-Dayo] lisinopril Allergy Intermediate Hives and Verified 06/10/21 20:03 diarrhea Sulfa (Sulfonamide Allergy Hives Verified 06/10/21 20:03 Antibiotics) Family History Mother Diabetes Father AAA (abdominal aortic aneurysm) Surgical History History of gastrostomy tube placement (11/07/16) History of tracheostomy (11/07/16) 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 Social History household members: spouse Smoking Status: Former smoker how long ago did patient quit smokin years ago, 2ppd second hand exposure: Yes alcohol intake: never substance use type: does not use caffeine: No ROS Review of Systems ROS Unobtainable: other Details: Due to aphasia Physical Exam Const alert and no apparent distress Constitutional Narrative: Aphasic, but interactive General Appearance: cooperative Exam Limitations: language barrier Nutritional Appearance: overweight HEENT normocephalic and head/scalp atraumatic Neck supple General: trachea midline Chest inspection of chest normal Resp Auscultation: wheezes right upper and diminished lung sounds; Negative for rales or rhonchi Cardio regular rate and regular rhythm GI normal to inspection, nondistended, normoactive bowel sounds Extremity no clubbing, cyanosis or edema Skin no rashes or lesions noted Neuro Neuro Narrative: Baseline expressive aphasia Psych cooperative and affect normal Lab / Micro Data Result Diagrams: 06/11/21 05:58 06/11/21 05:58 Labs: Laboratory Results - last 24 hr 06/11/21 08:30: D-Dimer Quant (PE/DVT) 2.49 H* 06/12/21 06:10: PT 15.8 H, INR 1.3, APTT 32.8 Radiology Impression Chest CTA 06/11/21 08:58 IMPRESSION: 1. No evidence of pulmonary embolism or aortic dissection. 2. Large mass in the right upper lobe as described above concerning for malignancy. Focal consolidation is less likely. 3. Prominent nodes in the right hilum. 4. Small right pleural effusion. 5. Compressive atelectatic changes in right lower lobe. Electronically Signed: Dave Biggs MD at 10:09 EST Tel , Service support , ADDENDUM: 06/11/21 1338 Charges/Coding Visit Charges Inpatient E&M: 17628 Init Hosp L2
[2021-06-12] MEDS: Potassium Chloride Oral Tablet 20 MEQ PO ×3 (08:55→17:50)
[2021-06-12] MEDS: Multivitamins,Ther W-Minerals Tablet 1 TABLET PO (08:55)
[2021-06-12] MEDS: Loratadine 10 MG Tablet PO (08:56)
--- NOTE | 2021-06-12 09:19 | CASEMGMT ---
Social Work Note Per customer field representative questions, pt has completed HCPOA and LW. SW reviewed chart. Both HCPOA and LW are on file. SW printed off documents and placed on pt's chart. Elida Nichole MSW, REFRIGERATION LEAD
--- NOTE | 2021-06-12 10:45 | CASEMGMT ---
DIANE ROSARIO Face to Face with patient for initial transition planning/care coordination assessment. RN CM introduced self and role at [facility]. wishes to complete assessment outside of room as patient is agitated. , Eli, willing to participate in assessment and is able to answer all questions appropriately. Care providers, pharmacy, and demographics verified. wishes for patient to discharge home, with possible HHC. Patient states he has no further needs or concerns at this time. CM to follow for discharge planning needs that may arise. PCP: Cruz Specialists: Alcides court manager; LILIANE Napoles office for assistant housekeeping manager Preferred Pharmacy: [facility] retail Insurance: [employer] Prescription Benefit: yes Living Will/HPOA: yes Eli Bhat LNOK: Living Arrangements: Patient lives with in first floor apartment . Patient is independent for toileting and dressing, assists with bathing. Transportation: DME/HHC: patient has shower chair, grab bars, cane, wheelchair, nebulizer, and home oxgyen with [employer] 2-3 lpm with portability. Patient has previously been to [facility]. Patient has had [facility] HHC in the past. states that if patient will need HHC she would prefer [facility]. Disposition Plan: Patient to discharge home with family support and follow-up plans in place. Will monitor for need for HHC pending therapy. Elida PEARCE, RN, CM
[2021-06-12] MEDS: LORazepam 0.5 MG Tablet PO ×2 (11:32→21:34)
[2021-06-12] MEDS: Fluticasone 0.05% 1 SPRAY NASAL.SRY 2 SPRAY NASAL (11:33)
[2021-06-12] MEDS: hydroCHLOROthiazide 12.5mg 12.5 MG PO (11:34)
[2021-06-12] MEDS: guaiFENesin 1,200 MG Tablet 1200 MG PO ×2 (11:34→21:35)
[2021-06-12] MEDS: Ezetimibe 10 MG Tablet PO (11:34)
[2021-06-12] MEDS: amLODIPine 5 MG Tablet PO ×2 (11:35→21:36)
[2021-06-12] MEDS: Amiodarone 200 MG Tablet 100 MG PO (11:36)
[2021-06-12] MEDS: Escitalopram Oxalate 20 MG Tablet PO (11:36)
[2021-06-12] MEDS: Metoprolol Tartrate 25 MG Tablet 12.5 MG PO ×2 (11:37→21:35)
--- NOTE | 2021-06-12 11:38 | PCM.PN.HOSP ---
Subjective Subjective Follow-up on acute hypoxic respiratory failure secondary to possible aspiration pneumonia/lung mass: Patient was seen and examined. Discussed with his at the bedside. His Eliquis and Plavix have been held. Biopsy however cannot happen until Saturday. Objective Data Objective Data Vital Signs: Vital Signs Temp Pulse Resp BP Pulse Ox 98.0 F 58 L 22 H 124/59 H 95 06/12/21 08:52 06/12/21 11:22 06/12/21 11:22 06/12/21 08:52 06/12/21 11:22 Oxygen Flow Rate (L/min) 4.5 Oxygen Delivery Method Nasal Cannula Weight: 83.2 kg Body Mass Index (BMI) 27.1 Intake & Output: Intake and Output for Last 24 Hours 06/11/21 06/11/21 06/12/21 00:59 23:59 23:59 Intake Total 224 / 224 Output Total 400 / 400 Balance -176 / -176 Lab / Micro Data Result Diagrams: 06/11/21 05:58 06/11/21 05:58 Labs: Laboratory Results - last 24 hr 06/12/21 06:10: PT 15.8 H, INR 1.3, APTT 32.8 Micro: Microbiology 06/11/21 00:05 Urine, Clean Catch Streptococcus pneumoniae Antigen (M - Final 06/11/21 00:05 Urine, Clean Catch Legionella Antigen - Final 06/10/21 20:30 Nasal Secretion SARS-CoV-2 Antigen (Rapid) - Final Radiography Diagnostic Testing: Radiology Impression Chest CTA 06/11/21 08:58 IMPRESSION: 1. No evidence of pulmonary embolism or aortic dissection. 2. Large mass in the right upper lobe as described above concerning for malignancy. Focal consolidation is less likely. 3. Prominent nodes in the right hilum. 4. Small right pleural effusion. 5. Compressive atelectatic changes in right lower lobe. Electronically Signed: Dave Biggs MD at 10:09 EST Tel , Service support , ADDENDUM: 06/11/21 1338 Physical Exam Narrative Physical exam: General: Alert, aphasic, on 4 L of oxygen HEENT: Atraumatic Oral: Moist Mucosa Neck: Supple Lungs: Diminished to auscultation Cardiovascular: HS I+II, regular, no murmurs Abdomen: Bowel Sounds Present, Soft, Non Tender Extremities: No edema Assessment & Plan Assessment/Plan (1) Acute respiratory failure with hypoxia: (2) Asthma exacerbation in COPD: (3) Infiltrate of lower lobe of right lung present on imaging study: PLAN: 1. Acute hypoxic respiratory failure secondary to probable aspiration pneumonia/right upper lobe lung mass Patient is on 4 L of oxygen Continue on IV Unasyn Biopsy of lung mass plan for Saturday; off Eliquis and Plavix 2. Dysphagia, speech therapy following 3. Acute COPD exacerbation, continue on Solu-Medrol and breathing treatments 4. Rest of his chronic medical conditions remained stable Meds reviewed 5. DVT prophylaxis?Lovenox subcu Charges/Coding Visit Charges Inpatient E&M: 33484 Subs Hosp L2
[2021-06-12] MEDS: Nystatin Ointment 1 APPLIC TOPICAL ×2 (11:42→21:36)
[2021-06-12] MEDS: traZODone 100 MG Tablet PO (21:35)
[2021-06-12] MEDS: Famotidine 20 MG Tablet PO (21:36)
[2021-06-12] MEDS: Atorvastatin Calcium 40 MG Tablet PO (21:37)
[2021-06-12] MEDS: 0.9% Saline Lock 10 ML Syringe IV (21:39)
[2021-06-13] VITALS (13 sets, daily range): BP systolic 105–141; BP diastolic 52–71; PULSE 61–74; RESP 18; TEMP 36.4–36.9; O2SAT 90–96
[2021-06-13] MEDS: 0.9% Saline Lock 10 ML Syringe IV ×3 (06:06→21:16)
[2021-06-13] MEDS: Baclofen 10 MG Tablet 5 MG PO ×3 (06:07→21:08)
[2021-06-13] MEDS: Enoxaparin 40 MG/0.4 ML Syringe SC (06:10)
[2021-06-13] MEDS: Ipratropium/Albuterol Sulfate 3 ML AMPUL.NEB INHALATION ×4 (07:19→19:37)
[2021-06-13 07:51] LABS: Absolute Lymphocyte Count 1.22 X10^3/uL (0.83-4.51); Absolute Neutrophil Count 17.3 X10^3/uL (2.0-7.7); Basophil# 0.03 X10^3/uL; Basophil% 0.2 % (0-1); Hematocrit 32.8 % (40-54); Hemoglobin 10.6 g/dL (13.0-16.5); Lymphocyte # 1.22 X10^3/ul (0.83-4.51); Lymphocyte % 6.1 % (19-41); Mean Corp Hgb Conc 32.3 g/dL (32-36); Mean Corpuscular Hgb 29.2 pg (27.0-32.0); Mean Corpuscular Volume 90.4 fL (80-94); Mean Platelet Vol. 10.3 fl (6.2-12.0); Monocyte% 3.5 % (0-10); NRBC Flagged by Analyzer 0.1 % (0-5); Neutrophil # 17.33 X10^3/uL (2.7-7.7); Neutrophil % 87.3 % (47-70); Platelet Count 426 K/mm3 (150-450); RBC Distribution Width CV 13.1 % (11.6-14.6); RBC Distribution Width SD 43.2 fl (35.1-43.9); Red Blood Count 3.63 M/mm3 (4.6-6.2); White Blood Count 19.9 K/mm3 (4.4-11.0)
[2021-06-13 08:21] LABS: ALB/GLOB Ratio 0.5 RATIO (0.9-2.4); AST(SGOT) 21 U/L (15-37); Alanine Aminotransfer ALT/SGPT 36 U/L (16-61); Albumin, Serum 2.1 g/dL (3.2-5.0); Alkaline Phosphatase 122 U/L (45-117); Anion Gap 5 (5-15); BUN 15 mg/dL (7-18); BUN/Creat Ratio 18.2 RATIO (10-20); Calcium,Total 8.5 mg/dL (8.5-10.1); Chloride 109 mmol/L (98-107); Creatinine, Serum 0.82 mg/dL (0.70-1.30); EST Glomerular Filtration Rate 99 mL/min (>60); Est Glom Filt Rate - Afr Amer 120 mL/min (>60); Estimated Creatinine Clearance 89.81 ml/min; Globulin 4.5 g/dL (2.2-4.2); Glucose 132 mg/dL (74-106); Potassium 3.8 mmol/L (3.5-5.1); Protein, Total 6.6 g/dL (6.4-8.2); Sodium Level 142 mmol/L (136-145)
[2021-06-13] MEDS: Potassium Chloride Oral Tablet 20 MEQ PO ×3 (08:22→17:54)
[2021-06-13] MEDS: Multivitamins,Ther W-Minerals Tablet 1 TABLET PO (08:23)
--- NOTE | 2021-06-13 08:41 | PN.CC_ITS ---
Assessment & Plan Assessment/Plan (1) Infiltrate of lower lobe of right lung present on imaging study: (2) Mixed obstructive and restrictive ventilatory defect: (3) History of stroke: PLAN: RECOMMENDATIONS: 1. Wean supplemental oxygen as tolerated 2. Transition to supplemental oxygen [id number] 3. Reasonable to continue with empiric antibiotics to complete a 7-day course 4. Proceed with CT-guided biopsy on Saturday 5. Increase activity as tolerated IMPRESSIONS: 1. Acute hypoxic respiratory insufficiency secondary to acute exacerbation of asthma/COPD Patient did have wheezing on exam. Agree with bronchodilators and Solu- Medrol for now. This potentially could be transition to prednisone therapy to complete a 5-day course. Empiric antibiotics are appropriate to complete a 7- day course. It is unclear if patient has been attempting p.o., but has required a PEG tube in the past secondary to dysphagia. 2. Right upper lobe lung mass Right upper lobe findings have persisted for over a month and a half. This makes abscess versus malignancy highly probable. Patient will require a biopsy at some point. However, patient is currently on Eliquis and Plavix therapy. Patient would be at risk for pneumothorax given emphysematous changes, but this does abut the pleura so risk is somewhat reduced. PET scan will not be helpful in this situation given the differential of infectious versus malignant. 3. Paroxysmal A. fib/history of MCA stroke/hypertension/dyslipidemia/limited history Complicates care, management, recovery and prognosis. Plavix and Eliquis will need to be held secondary to need for biopsy. Patient can continue other medications. Aphasia does limit ability to obtain history. Subjective Subjective Patient did okay overnight. No acute issues were reported. Hospitalist had a meeting with his yesterday. Anticipate keeping him in the hospital pending biopsy on Saturday. Objective Data Objective Data Vital Signs: Vital Signs Temp Pulse Resp BP Pulse Ox 36.4 C L 61 18 125/67 H 95 06/13/21 02:43 06/13/21 02:43 06/13/21 02:43 06/13/21 02:43 06/13/21 02:43 Oxygen Flow Rate (L/min) 4 Oxygen Delivery Method Nasal Cannula Weight: 83.2 kg Body Mass Index (BMI) 27.1 Intake & Output: Intake and Output for Last 24 Hours 11/07/21 11/08/21 11/09/21 23:59 23:59 23:59 Intake Total 1278 / 1278 300 / 300 Output Total 1000 / 1000 500 / 500 Balance 278 / 278 -200 / -200 Lab / Micro Data Result Diagrams: 06/13/21 07:25 06/13/21 07:25 Labs: Laboratory Results - last 24 hr 06/13/21 07:25: WBC 19.9 H, RBC 3.63 L, Hgb 10.6 L, Hct 32.8 L, MCV 90.4, MCH 29.2, MCHC 32.3, RDW Std Deviation 43.2, RDW Coeff of Makayla 13.1, Plt Count 426, MPV 10.3, Immature Gran % (Auto) 2.900 H, Neut % (Auto) 87.3 H, Lymph % (Auto) 6.1 L, Harlan % (Auto) 3.5, Eos % (Auto) 0.0, Baso % (Auto) 0.2, Absolute Neuts (auto) 17.3 H, Absolute Lymphs (auto) 1.22, Nucleated RBC % 0.1 06/13/21 07:25: Sodium 142, Potassium 3.8, Chloride 109 H, Carbon Dioxide 28.0, Anion Gap 5, BUN 15, Creatinine 0.82, Estim Creat Clear Calc 89.81, Est GFR (MDRD) Af Amer 120, Est GFR (MDRD) Non-Af 99, BUN/Creatinine Ratio 18.2, Glucose 132 H, Calcium 8.5, Total Bilirubin 0.30, AST 21, ALT 36, Alkaline Phosphatase 122 H, Total Protein 6.6, Albumin 2.1 L, Globulin 4.5 H, Albumin/Globulin Ratio 0.5 L Micro: Microbiology 06/11/21 00:05 Urine, Clean Catch Streptococcus pneumoniae Antigen (M - Final 06/11/21 00:05 Urine, Clean Catch Legionella Antigen - Final 06/10/21 20:30 Nasal Secretion SARS-CoV-2 Antigen (Rapid) - Final Physical Exam Const alert and no apparent distress Constitutional Narrative: Aphasic, but interactive General Appearance: cooperative Exam Limitations: language barrier Nutritional Appearance: overweight HEENT normocephalic and head/scalp atraumatic Neck supple General: trachea midline Chest inspection of chest normal Resp Auscultation: wheezes right upper and diminished lung sounds; Negative for rales or rhonchi Cardio regular rate and regular rhythm GI normal to inspection, nondistended, normoactive bowel sounds Extremity no clubbing, cyanosis or edema Skin no rashes or lesions noted Neuro Neuro Narrative: Baseline expressive aphasia Psych cooperative and affect normal Charges/Coding Visit Charges Inpatient E&M: 75443 Subs Hosp L2
[2021-06-13] MEDS: Amiodarone 200 MG Tablet 100 MG PO (09:40)
[2021-06-13] MEDS: Loratadine 10 MG Tablet PO (09:40)
[2021-06-13] MEDS: Escitalopram Oxalate 20 MG Tablet PO (09:41)
[2021-06-13] MEDS: Fluticasone 0.05% 1 SPRAY NASAL.SRY 2 SPRAY NASAL (09:41)
[2021-06-13] MEDS: Nystatin Ointment 1 APPLIC TOPICAL ×2 (09:42→21:09)
[2021-06-13] MEDS: guaiFENesin 1,200 MG Tablet 1200 MG PO ×2 (09:42→21:09)
[2021-06-13] MEDS: LORazepam 0.5 MG Tablet PO ×2 (09:47→21:15)
[2021-06-13] MEDS: hydroCHLOROthiazide 12.5mg 12.5 MG PO (09:47)
[2021-06-13] MEDS: Ezetimibe 10 MG Tablet PO (10:02)
--- NOTE | 2021-06-13 13:48 | CASEMGMT ---
DIANE ROSARIO called radiology per request of to see if she could be with him during the biopsy. She can be right out side the room a few feet away but not in the actual room. DIANE ROSARIO in to pt room to make aware. He nodded his head that he understood. Also made him aware this RN ABRAHAM will follow for [facility] for therapy. He shook his head no. Asked if he felt he needed therapy at home, he shook his head no. RN ABRAHAM to follow. TC to pt to update on the answer from radiology, she verbalized understanding.
[2021-06-13 14:11] LABS: Pathologist Review Reviewed
--- NOTE | 2021-06-13 15:02 | PCM.PN.HOSP ---
Subjective Subjective Follow-up on acute hypoxic respiratory failure secondary to possible aspiration pneumonia/lung mass: Patient was seen and examined. No new complaints. Objective Data Objective Data Vital Signs: Vital Signs Temp Pulse Resp BP Pulse Ox 97.6 F L 66 18 137/69 H 95 06/13/21 14:35 06/13/21 14:35 06/13/21 14:35 06/13/21 14:35 06/13/21 14:35 Oxygen Flow Rate (L/min) 4 Oxygen Delivery Method Nasal Cannula Weight: 83.2 kg Body Mass Index (BMI) 27.1 Intake & Output: Intake and Output for Last 24 Hours 06/11/21 06/12/21 06/13/21 23:59 23:59 23:59 Intake Total 1278 / 1278 612 / 612 Output Total 1000 / 1000 750 / 750 Balance 278 / 278 -138 / -138 Lab / Micro Data Result Diagrams: 06/13/21 07:25 06/13/21 07:25 Labs: Laboratory Results - last 24 hr 06/10/21 20:30: Diff Path Review Reviewed 06/13/21 07:25: WBC 19.9 H, RBC 3.63 L, Hgb 10.6 L, Hct 32.8 L, MCV 90.4, MCH 29.2, MCHC 32.3, RDW Std Deviation 43.2, RDW Coeff of Makayla 13.1, Plt Count 426, MPV 10.3, Immature Gran % (Auto) 2.900 H, Neut % (Auto) 87.3 H, Lymph % (Auto) 6.1 L, Howard % (Auto) 3.5, Eos % (Auto) 0.0, Baso % (Auto) 0.2, Absolute Neuts (auto) 17.3 H, Absolute Lymphs (auto) 1.22, Nucleated RBC % 0.1 06/13/21 07:25: Sodium 142, Potassium 3.8, Chloride 109 H, Carbon Dioxide 28.0, Anion Gap 5, BUN 15, Creatinine 0.82, Estim Creat Clear Calc 89.81, Est GFR (MDRD) Af Amer 120, Est GFR (MDRD) Non-Af 99, BUN/Creatinine Ratio 18.2, Glucose 132 H, Calcium 8.5, Total Bilirubin 0.30, AST 21, ALT 36, Alkaline Phosphatase 122 H, Total Protein 6.6, Albumin 2.1 L, Globulin 4.5 H, Albumin/Globulin Ratio 0.5 L Micro: Microbiology 06/10/21 21:00 Blood Culture (Wb) - Left Hand Blood Culture - Preliminary No growth in 48 hours. 06/10/21 20:30 Blood Culture (Wb) - Anticubital Left Blood Culture - Preliminary No growth in 48 hours. 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 Acute hypoxic respiratory failure secondary to probable aspiration pneumonia/right upper lobe lung mass Remains on 4 L of oxygen Continue on IV Unasyn Biopsy of lung mass plan for Saturday; off Eliquis and Plavix 2. Dysphagia, speech therapy following 3. Acute COPD exacerbation, continue on Solu-Medrol and breathing treatments 4. Relative hypotension, changes made to blood pressure medications, continue to monitor 5. Rest of his chronic medical conditions remained stable Meds reviewed 6. DVT prophylaxis?Lovenox subcu Charges/Coding Visit Charges Inpatient E&M: 70587 Subs Hosp L2
[2021-06-13] MEDS: amLODIPine 5 MG Tablet PO (21:08)
[2021-06-13] MEDS: traZODone 100 MG Tablet PO (21:08)
[2021-06-13] MEDS: Famotidine 20 MG Tablet PO (21:09)
[2021-06-13] MEDS: Metoprolol Tartrate 25 MG Tablet 12.5 MG PO (21:09)
[2021-06-13] MEDS: Atorvastatin Calcium 40 MG Tablet PO (21:11)
[2021-06-13] MEDS: Acetaminophen 325 MG Tablet 650 MG PO (21:16)
[2021-06-14] VITALS (13 sets, daily range): BP systolic 111–140; BP diastolic 56–70; PULSE 50–69; RESP 15–18; TEMP 36.4–37.1; O2SAT 83–100
[2021-06-14] MEDS: Enoxaparin 40 MG/0.4 ML Syringe SC (05:08)
[2021-06-14] MEDS: Baclofen 10 MG Tablet 5 MG PO ×3 (05:08→21:19)
[2021-06-14] MEDS: 0.9% Saline Lock 10 ML Syringe IV ×2 (05:08→14:18)
[2021-06-14] MEDS: Ipratropium/Albuterol Sulfate 3 ML AMPUL.NEB INHALATION ×3 (07:05→14:49)
[2021-06-14 07:36] LABS: Absolute Lymphocyte Count 1.32 X10^3/uL (0.83-4.51); Absolute Neutrophil Count 15.3 X10^3/uL (2.0-7.7); Basophil# 0.05 X10^3/uL; Basophil% 0.3 % (0-1); Hematocrit 33.3 % (40-54); Hemoglobin 10.7 g/dL (13.0-16.5); Lymphocyte # 1.32 X10^3/ul (0.83-4.51); Lymphocyte % 7.3 % (19-41); Mean Corp Hgb Conc 32.1 g/dL (32-36); Mean Corpuscular Hgb 29.2 pg (27.0-32.0); Mean Platelet Vol. 10.5 fl (6.2-12.0); Monocyte# 0.61 X10^3/uL; Monocyte% 3.4 % (0-10); NRBC Flagged by Analyzer 0.2 % (0-5); Neutrophil # 15.26 X10^3/uL (2.7-7.7); Neutrophil % 84.7 % (47-70); Platelet Count 398 K/mm3 (150-450); RBC Distribution Width CV 13.2 % (11.6-14.6); RBC Distribution Width SD 43.6 fl (35.1-43.9); Red Blood Count 3.66 M/mm3 (4.6-6.2)
[2021-06-14 07:56] LABS: ALB/GLOB Ratio 0.5 RATIO (0.9-2.4); AST(SGOT) 22 U/L (15-37); Alanine Aminotransfer ALT/SGPT 36 U/L (16-61); Albumin, Serum 2.1 g/dL (3.2-5.0); Alkaline Phosphatase 122 U/L (45-117); Anion Gap 6 (5-15); BUN 16 mg/dL (7-18); BUN/Creat Ratio 18.6 RATIO (10-20); Calcium,Total 8.3 mg/dL (8.5-10.1); Chloride 106 mmol/L (98-107); Creatinine, Serum 0.86 mg/dL (0.70-1.30); EST Glomerular Filtration Rate 95 mL/min (>60); Est Glom Filt Rate - Afr Amer 114 mL/min (>60); Estimated Creatinine Clearance 85.63 ml/min; Globulin 4.3 g/dL (2.2-4.2); Glucose 129 mg/dL (74-106); Potassium 3.9 mmol/L (3.5-5.1); Protein, Total 6.4 g/dL (6.4-8.2); Sodium Level 141 mmol/L (136-145)
[2021-06-14] MEDS: Multivitamins,Ther W-Minerals Tablet 1 TABLET PO (08:55)
[2021-06-14] MEDS: Escitalopram Oxalate 20 MG Tablet PO (08:55)
[2021-06-14] MEDS: Nystatin Ointment 1 APPLIC TOPICAL ×2 (08:56→21:18)
[2021-06-14] MEDS: hydroCHLOROthiazide 12.5mg 12.5 MG PO (08:56)
[2021-06-14] MEDS: Loratadine 10 MG Tablet PO (08:56)
[2021-06-14] MEDS: Ezetimibe 10 MG Tablet PO (08:56)
[2021-06-14] MEDS: Fluticasone 0.05% 1 SPRAY NASAL.SRY 2 SPRAY NASAL (08:56)
[2021-06-14] MEDS: guaiFENesin 1,200 MG Tablet 1200 MG PO ×2 (08:57→21:18)
[2021-06-14] MEDS: Potassium Chloride Oral Tablet 20 MEQ PO ×3 (08:57→15:59)
--- NOTE | 2021-06-14 09:02 | PCS.PANDOC ---
PANDEMIC DOCUMENTATION INITIATED: Date: 03/20/2021 Time: 190
[2021-06-14] MEDS: LORazepam 0.5 MG Tablet PO ×2 (09:04→21:19)
--- NOTE | 2021-06-14 11:03 | PCM.PN.INT ---
Assessment & Plan Assessment/Plan (1) Infiltrate of lower lobe of right lung present on imaging study: (2) Mixed obstructive and restrictive ventilatory defect: (3) History of stroke: PLAN: RECOMMENDATIONS: 1. Wean supplemental oxygen as tolerated. Walking oximetry prior to discharge 2. Use ambulatory oxygen to dictate nocturnal oxygen 3. Reasonable to continue with empiric antibiotics to complete a 7-day course 4. Proceed with CT-guided biopsy on Saturday 5. Will follow peripherally given relative stability. Call with issues IMPRESSIONS: 1. Acute hypoxic respiratory insufficiency secondary to acute exacerbation of asthma/COPD Patient did have wheezing on exam. Agree with bronchodilators. Okay to transition to prednisone therapy and complete a 5-day burst. Empiric antibiotics are appropriate to complete a 7-day course. It is unclear if patient has been attempting p.o., but has required a PEG tube in the past secondary to dysphagia. Patient has remained hemodynamically stable. Patient should have a walking oximetry prior to discharge. Biopsy results can be followed by Dr. Mcgrath as an outpatient. Please be sure biopsy is also sent for bacterial in addition to histopathologic evaluation. 2. Right upper lobe lung mass Right upper lobe findings have persisted for over a month and a half. This makes abscess versus malignancy highly probable. Patient will require a biopsy at some point. However, patient is currently on Eliquis and Plavix therapy. Patient would be at risk for pneumothorax given emphysematous changes, but this does abut the pleura so risk is somewhat reduced. PET scan will not be helpful in this situation given the differential of infectious versus malignant. 3. Paroxysmal A. fib/history of MCA stroke/hypertension/dyslipidemia/limited history Complicates care, management, recovery and prognosis. Plavix and Eliquis will need to be held secondary to need for biopsy. Patient can continue other medications. Aphasia does limit ability to obtain history. Subjective Subjective Patient did well overnight. No acute issues were reported. Oxygenation is slowly improved on the 4 L nasal cannula. Patient is pending biopsy on Saturday. No bleeding complications have been reported. Objective Data Objective Data Vital Signs: Vital Signs Temp Pulse Resp BP Pulse Ox 36.5 C L 51 L 18 111/56 L 96 06/14/21 08:01 06/14/21 08:54 06/14/21 08:01 06/14/21 08:01 06/14/21 08:53 Oxygen Flow Rate (L/min) 4 Oxygen Delivery Method Venturi Mask Weight: 83.2 kg Body Mass Index (BMI) 27.1 Intake & Output: Intake and Output for Last 24 Hours 06/12/21 06/13/21 06/14/21 23:59 23:59 23:59 Intake Total 1278 / 1278 1363.25 / 1363.25 112 / 112 Output Total 1000 / 1000 750 / 900 1000 / 1000 Balance 278 / 278 613.25 / 463.25 -888 / -888 Lab / Micro Data Result Diagrams: 06/14/21 06:12 06/14/21 06:12 Labs: Laboratory Results - last 24 hr 06/10/21 20:30: Diff Path Review Reviewed 06/14/21 06:12: WBC 18.0 H, RBC 3.66 L, Hgb 10.7 L, Hct 33.3 L, MCV 91.0, MCH 29.2, MCHC 32.1, RDW Std Deviation 43.6, RDW Coeff of Makayla 13.2, Plt Count 398, MPV 10.5, Immature Gran % (Auto) 4.300 H, Neut % (Auto) 84.7 H, Lymph % (Auto) 7.3 L, [place] % (Auto) 3.4, Eos % (Auto) 0.0, Baso % (Auto) 0.3, Absolute Neuts (auto) 15.3 H, Absolute Lymphs (auto) 1.32, Nucleated RBC % 0.2 06/14/21 06:12: Sodium 141, Potassium 3.9, Chloride 106, Carbon Dioxide 29.0, Anion Gap 6, BUN 16, Creatinine 0.86, Estim Creat Clear Calc 85.63, Est GFR (MDRD) Af Amer 114, Est GFR (MDRD) Non-Af 95, BUN/Creatinine Ratio 18.6, Glucose 129 H, Calcium 8.3 L, Total Bilirubin 0.40, AST 22, ALT 36, Alkaline Phosphatase 122 H, Total Protein 6.4, Albumin 2.1 L, Globulin 4.3 H, Albumin/Globulin Ratio 0.5 L Micro: Microbiology 06/10/21 21:00 Blood Culture (Wb) - Left Hand Blood Culture - Preliminary No growth in 48 hours. 06/10/21 20:30 Blood Culture (Wb) - Anticubital Left Blood Culture - Preliminary No growth in 48 hours. 06/11/21 00:05 Urine, Clean Catch Streptococcus pneumoniae Antigen (M - Final 06/11/21 00:05 Urine, Clean Catch Legionella Antigen - Final 06/10/21 20:30 Nasal Secretion SARS-CoV-2 Antigen (Rapid) - Final Physical Exam Const alert and no apparent distress Constitutional Narrative: Aphasic, but interactive General Appearance: cooperative Exam Limitations: language barrier Nutritional Appearance: overweight HEENT normocephalic and head/scalp atraumatic Neck supple General: trachea midline Chest inspection of chest normal Resp Auscultation: wheezes right upper and diminished lung sounds; Negative for rales or rhonchi Cardio regular rate and regular rhythm GI normal to inspection, nondistended, normoactive bowel sounds Extremity no clubbing, cyanosis or edema Skin no rashes or lesions noted Neuro Neuro Narrative: Baseline expressive aphasia Psych cooperative and affect normal Charges/Coding Visit Charges Inpatient E&M: 73830 Subs Hosp L2
--- NOTE | 2021-06-14 11:10 | CASEMGMT ---
TC to [employer] to verify pt rx. Per Faiza, pt is 2L with exertion.
--- NOTE | 2021-06-14 11:26 | PN.HOSP_ITS ---
Subjective Subjective Follow-up on acute hypoxic respiratory failure secondary to possible aspiration pneumonia/lung mass: Patient was seen and examined. No new complaints. Waiting on biopsy on Saturday Objective Data Objective Data Vital Signs: Vital Signs Temp Pulse Resp BP Pulse Ox 97.7 F L 51 L 18 111/56 L 96 06/14/21 08:01 06/14/21 08:54 06/14/21 08:01 06/14/21 08:01 06/14/21 08:53 Oxygen Flow Rate (L/min) 4 Oxygen Delivery Method Venturi Mask Weight: 83.2 kg Body Mass Index (BMI) 27.1 Intake & Output: Intake and Output for Last 24 Hours 06/12/21 06/13/21 06/14/21 23:59 23:59 23:59 Intake Total 1278 / 1278 1363.25 / 1363.25 112 / 112 Output Total 1000 / 1000 750 / 900 1000 / 1000 Balance 278 / 278 613.25 / 463.25 -888 / -888 Lab / Micro Data Result Diagrams: 06/14/21 06:12 06/14/21 06:12 Labs: Laboratory Results - last 24 hr 06/10/21 20:30: Diff Path Review Reviewed 06/14/21 06:12: WBC 18.0 H, RBC 3.66 L, Hgb 10.7 L, Hct 33.3 L, MCV 91.0, MCH 29.2, MCHC 32.1, RDW Std Deviation 43.6, RDW Coeff of Makayla 13.2, Plt Count 398, MPV 10.5, Immature Gran % (Auto) 4.300 H, Neut % (Auto) 84.7 H, Lymph % (Auto) 7.3 L, [place] % (Auto) 3.4, Eos % (Auto) 0.0, Baso % (Auto) 0.3, Absolute Neuts (auto) 15.3 H, Absolute Lymphs (auto) 1.32, Nucleated RBC % 0.2 06/14/21 06:12: Sodium 141, Potassium 3.9, Chloride 106, Carbon Dioxide 29.0, Anion Gap 6, BUN 16, Creatinine 0.86, Estim Creat Clear Calc 85.63, Est GFR (MDRD) Af Amer 114, Est GFR (MDRD) Non-Af 95, BUN/Creatinine Ratio 18.6, Glucose 129 H, Calcium 8.3 L, Total Bilirubin 0.40, AST 22, ALT 36, Alkaline Phosphatase 122 H, Total Protein 6.4, Albumin 2.1 L, Globulin 4.3 H, Albumin/Globulin Ratio 0.5 L Micro: Microbiology 06/10/21 21:00 Blood Culture (Wb) - Left Hand Blood Culture - Preliminary No growth in 48 hours. 06/10/21 20:30 Blood Culture (Wb) - Anticubital Left Blood Culture - Preliminary No growth in 48 hours. 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 Acute hypoxic respiratory failure secondary to probable aspiration pneumonia/right upper lobe lung mass Remains on 4 L of oxygen Continue on IV Unasyn Biopsy of lung mass plan for Saturday; off Eliquis and Plavix 2. Dysphagia, speech therapy following 3. Acute COPD exacerbation, continue on Solu-Medrol and breathing treatments 4. Relative hypotension, changes made to blood pressure medications, continue to monitor 5. Rest of his chronic medical conditions remained stable Meds reviewed 6. DVT prophylaxis?Lovenox subcu Charges/Coding Visit Charges Inpatient E&M: 67792 Subs Hosp L2
--- NOTE | 2021-06-14 12:15 | NURSING ---
spouse here at bedside. Spouse states that it is okay to release information to their son Dov Moore as well. will be noted on demographics
--- NOTE | 2021-06-14 14:13 | NURSING ---
upon entering room, pt resting in chair, does not have his oxygen on. pt awakened to voice and oxygen tubing placed back in nose.
[2021-06-14] MEDS: Atorvastatin Calcium 40 MG Tablet PO (21:18)
[2021-06-14] MEDS: amLODIPine 5 MG Tablet PO (21:18)
[2021-06-14] MEDS: Famotidine 20 MG Tablet PO (21:19)
[2021-06-14] MEDS: Metoprolol Tartrate 25 MG Tablet 12.5 MG PO (21:19)
[2021-06-14] MEDS: traZODone 100 MG Tablet PO (21:20)
[2021-06-15] VITALS (12 sets, daily range): BP systolic 117–140; BP diastolic 57–75; PULSE 53–64; RESP 16–18; TEMP 36.3–36.6; O2SAT 92–98
--- NOTE | 2021-06-15 | ASPIGT_PTH ---
PATIENT: ROBERTA ZEE LOC: MS3 U#:[id number] AGE/SX: 65/M [place] [facility] [place]: Dr. Pilar Garcia MD : 1955 BED: 1 DIS: 06/17/2021 SPEC #: [id number] RECD: 06/16/21 09:55 STATUS: LEOBARDO REMayo #: [id number] GABRIELA: 06/15/21 00:[address]: Pilar Garcia DEPT: SURGICAL PATHOLOGY RECD BY: Micky Parikh ENTERED: 06/16/21 09:55 SP TYPE: ASP RAD OTHR DR: MD Dr. Doug Paul DO Dr. Eric Jopperi, DO Dr. Mark Elderbrock, MD Christina Muller, DIRECTOR OF NEUROLOGY-C Tissues: Lung, NOS Procedures: FNA Specimen Adequacy Elastin Stain (control) Trichrome (control) Special Stain Group II Surgery Specimen Level IV Retic (control) Iron Stain (control) Imprint (control) HEADER OPERATION: CT-guided lung biopsy PRE-OP DIAGNOSIS: Right apical lung mass TISSUE SUBMITTED: Right upper lung 20-gauge core x4 MICROSCOPIC DIAGNOSIS Right apical lung mass, CT-guided core biopsy: Lung parenchymal tissue with extensive fibrosis, mild interstitial thickening, mild chronic inflammation and reactive changes. Negative for malignancy. See comment. SJ:rg 06/19/2021 COMMENT The specimen is evaluated at the time of biopsy by Dr. James. Immediate Evaluation = Negative for malignant cells. Iron, reticulin, elastin and trichrome stains with matched controls are used in the evaluation of the specimen. Case has been reviewed in consultation with Dr. Melo who concurs with the above diagnosis. IDC:AM MICROSCOPIC DESCRIPTION Slides are reviewed. GROSS DESCRIPTION Received in fixative is one container labeled with the patient's name and designated right lung, CT-guided core biopsy. The specimen consists of multiple elongated fragments of douglas soft tissue that in aggregate measure 1.5 x 0.3 x 0.1 cm. The specimen is totally submitted in one cassette. Two touch imprints are prepared at the time of core biopsy. / DREA:reggie 06/16/21 TC:5 CPT: 41931, 39834, 61494 x4
[2021-06-15] MEDS: Enoxaparin 40 MG/0.4 ML Syringe SC (05:13)
[2021-06-15] MEDS: Baclofen 10 MG Tablet 5 MG PO ×3 (05:13→21:42)
[2021-06-15] MEDS: Ipratropium/Albuterol Sulfate 3 ML AMPUL.NEB INHALATION ×4 (06:53→18:41)
[2021-06-15 07:01] LABS: Absolute Lymphocyte Count 1.28 X10^3/uL (0.83-4.51); Absolute Neutrophil Count 15.4 X10^3/uL (2.0-7.7); Basophil# 0.06 X10^3/uL; Basophil% 0.3 % (0-1); Hematocrit 33.6 % (40-54); Hemoglobin 10.8 g/dL (13.0-16.5); Lymphocyte # 1.28 X10^3/ul (0.83-4.51); Mean Corp Hgb Conc 32.1 g/dL (32-36); Mean Corpuscular Hgb 29.2 pg (27.0-32.0); Mean Corpuscular Volume 90.8 fL (80-94); Mean Platelet Vol. 10.2 fl (6.2-12.0); Monocyte# 0.66 X10^3/uL; Monocyte% 3.6 % (0-10); NRBC Flagged by Analyzer 0.2 % (0-5); Neutrophil # 15.43 X10^3/uL (2.7-7.7); Neutrophil % 84.1 % (47-70); Platelet Count 385 K/mm3 (150-450); RBC Distribution Width CV 13.2 % (11.6-14.6); RBC Distribution Width SD 43.5 fl (35.1-43.9); White Blood Count 18.3 K/mm3 (4.4-11.0)
[2021-06-15 07:34] LABS: ALB/GLOB Ratio 0.5 RATIO (0.9-2.4); AST(SGOT) 16 U/L (15-37); Alanine Aminotransfer ALT/SGPT 32 U/L (16-61); Alkaline Phosphatase 110 U/L (45-117); Anion Gap 3 (5-15); BUN 20 mg/dL (7-18); BUN/Creat Ratio 23.9 RATIO (10-20); Calcium,Total 8.2 mg/dL (8.5-10.1); Chloride 106 mmol/L (98-107); Creatinine, Serum 0.84 mg/dL (0.70-1.30); EST Glomerular Filtration Rate 98 mL/min (>60); Est Glom Filt Rate - Afr Amer 118 mL/min (>60); Estimated Creatinine Clearance 87.67 ml/min; Globulin 3.9 g/dL (2.2-4.2); Glucose 121 mg/dL (74-106); Potassium 4.1 mmol/L (3.5-5.1); Protein, Total 5.9 g/dL (6.4-8.2); Sodium Level 138 mmol/L (136-145)
[2021-06-15] MEDS: Potassium Chloride Oral Tablet 20 MEQ PO ×3 (08:17→17:13)
[2021-06-15] MEDS: Multivitamins,Ther W-Minerals Tablet 1 TABLET PO (08:17)
[2021-06-15] MEDS: Nystatin Ointment 1 APPLIC TOPICAL ×2 (08:17→21:47)
[2021-06-15] MEDS: Amiodarone 200 MG Tablet 100 MG PO (08:19)
[2021-06-15] MEDS: LORazepam 0.5 MG Tablet PO ×2 (08:19→21:41)
[2021-06-15] MEDS: amLODIPine 5 MG Tablet PO ×2 (08:21→21:42)
[2021-06-15] MEDS: Metoprolol Tartrate 25 MG Tablet 12.5 MG PO ×2 (08:21→21:52)
[2021-06-15] MEDS: hydroCHLOROthiazide 12.5mg 12.5 MG PO (08:21)
[2021-06-15] MEDS: Loratadine 10 MG Tablet PO (08:21)
[2021-06-15] MEDS: Fluticasone 0.05% 1 SPRAY NASAL.SRY 2 SPRAY NASAL (08:21)
[2021-06-15] MEDS: Ezetimibe 10 MG Tablet PO (08:21)
[2021-06-15] MEDS: Escitalopram Oxalate 20 MG Tablet PO (08:24)
[2021-06-15] MEDS: guaiFENesin 1,200 MG Tablet 1200 MG PO ×2 (08:24→21:42)
--- NOTE | 2021-06-15 11:41 | CASEMGMT ---
Addendum entered by Mercedes Chávez 06/15/21 14:40: TC from [facility] for [facility]. They are able to accept pt. and pt made aware. Original Note: DIANE ROSARIO NOTE: Per Dr Garcia, pt may be medically ready for discharge tomorrow. PT/OT notes reviewed--additional therapy recommended. DIANE ROSARIO to room to talk w/pt and , Eli. Eli asked DIANE ROSARIO to step into hallway to discuss discharge plan, stating, He gets nervous and upset when he hears what's being discussed. She was made aware further therapy is recommended and she confirms she does want HHC and 1st preference is [facility]. She requests SN in addition to therapy. also inquiring if pt needs a walker. She states he has just been using a cane in his room and she just wasn't sure if a walker was needed. She states, if therapy does not recommend pt getting a walker then she does not want one ordered. Noted therapy documented pt using a cane 06/13 and a WW 06/14. Per nursing report, pt has been assist of one w/cane.No therapy notes in for today yet. DIANE ROSARIO placed call to [facility]. She states she has worked w/pt today and states he is mostly back to his baseline w/use of cane and does not need a walker. made aware of same. TC to [facility] @ [facility]. Referral made. She was made aware possible d/c home tomorrow. Referral packet faxed to [facility] @ [phone] per her request, which is the [facility] office. Awaiting return call re: acceptance. Albina PEARCE RN, CM
--- NOTE | 2021-06-15 14:17 | PCM.PN.HOSP ---
Subjective Subjective Follow-up on acute hypoxic respiratory failure secondary to possible aspiration pneumonia/lung mass: Patient was seen and examined. No acute events Objective Data Objective Data Vital Signs: Vital Signs Temp Pulse Resp BP Pulse Ox 97.6 F L 58 L 18 123/58 H 94 06/15/21 10:05 06/15/21 11:28 06/15/21 11:28 06/15/21 10:05 06/15/21 10:05 Oxygen Flow Rate (L/min) 3 Oxygen Delivery Method Nasal Cannula Weight: 83.2 kg Body Mass Index (BMI) 27.1 Intake & Output: Intake and Output for Last 24 Hours 06/13/21 06/14/21 06/15/21 23:59 23:59 23:59 Intake Total 1363.25 / 1363.25 336 / 336 474 / 474 Output Total 750 / 900 1175 / 1175 Balance 613.25 / 463.25 -839 / -839 474 / 474 Lab / Micro Data Result Diagrams: 06/15/21 06:00 06/15/21 06:00 Labs: Laboratory Results - last 24 hr 06/15/21 06:00: WBC 18.3 H, RBC 3.70 L, Hgb 10.8 L, Hct 33.6 L, MCV 90.8, MCH 29.2, MCHC 32.1, RDW Std Deviation 43.5, RDW Coeff of Makayla 13.2, Plt Count 385, MPV 10.2, Immature Gran % (Auto) 5.000 H, Neut % (Auto) 84.1 H, Lymph % (Auto) 7.0 L, [place] % (Auto) 3.6, Eos % (Auto) 0.0, Baso % (Auto) 0.3, Absolute Neuts (auto) 15.4 H, Absolute Lymphs (auto) 1.28, Nucleated RBC % 0.2 06/15/21 06:00: Sodium 138, Potassium 4.1, Chloride 106, Carbon Dioxide 29.0, Anion Gap 3 L, BUN 20 H, Creatinine 0.84, Estim Creat Clear Calc 87.67, Est GFR (MDRD) Af Amer 118, Est GFR (MDRD) Non-Af 98, BUN/Creatinine Ratio 23.9 H, Glucose 121 H, Calcium 8.2 L, Total Bilirubin 0.40, AST 16, ALT 32, Alkaline Phosphatase 110, Total Protein 5.9 L, Albumin 2.0 L, Globulin 3.9, Albumin/Globulin Ratio 0.5 L Micro: Microbiology 06/10/21 21:00 Blood Culture (Wb) - Left Hand Blood Culture - Preliminary No growth in 48 hours. 06/10/21 20:30 Blood Culture (Wb) - Anticubital Left Blood Culture - Preliminary No growth in 48 hours. 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 Acute hypoxic respiratory failure secondary to probable aspiration pneumonia/right upper lobe lung mass Now on 3 L of oxygen; Continue on IV Unasyn Biopsy of lung mass plan for Saturday; off Eliquis and Plavix 2. Dysphagia, speech therapy following 3. Acute COPD exacerbation, continue on Solu-Medrol and breathing treatments 4. Relative hypotension, changes made to blood pressure medications, continue to monitor 5. Rest of his chronic medical conditions remained stable Meds reviewed 6. DVT prophylaxis?Lovenox subcu Charges/Coding Visit Charges Inpatient E&M: 29662 Subs Hosp L2
--- NOTE | 2021-06-15 17:40 | SP.MBSS_ITS ---
Modified Barium Swallow - Patient Information Study Date: 06/15/21 Study Time: 15:00 Direct Billable Minutes: 120 Total Minutes procedure & reportin Diagnosis: Acute Hypoxemic Respiratory Failure Referring Physician: Pilar Garcia Reason for Referral: Recurrent pneumonia, hx of CVA Medical History: ROBERTA ZEE, is a 65 M who presented to [facility] with shortness of breath. Patient has oxygen that he has at night but has increased. Placed on oxygen throughout the day. History is obtained to the emergency room physician as well as the patient's , patient is compromised had a stroke and answers yes to every question. PMHx significant for: Anemia Aphasia as late effect of stroke Atherosclerosis of coronary artery without angina pectoris Carotid artery disease Cerebral arterial aneurysm Chronic atrial fibrillation Confusion Debility Dysphagia HTN (hypertension) Hyperlipidemia Left acute arterial ischemic stroke, MCA (middle cerebral artery) (10/31/16) correction current use of amiodarone Lower resp. tract infection Mixed obstructive and restrictive ventilatory defect Respiratory failure Sepsis Smoker Stroke/cerebrovascular accident X-Ray of the chest 06/10/2021 revealed: Possibly right lower lung pneumonia, residual versus recurrent versus postinflammatory scarring. Consider CT chest for definitive evaluation. CT of Chest 06/11/2021 revealed: 1. No evidence of pulmonary embolism or aortic dissection. 2. Large mass in the right upper lobe as described above concerning for malignancy. Focal consolidation is less likely. 3. Prominent nodes in the right hilum. 4. Small right pleural effusion. 5. Compressive atelectatic changes in right lower lobe. Additionally, pt was recently admitted to [facility] 04/22/2021-04/25/2021 with multifocal pneumonia. Pt presenting w/limited s/s of penetration/aspiration of foods/drinks at bedside however w/ Pt's recurrent pneumonia and hx of CVA recommending MBSS today to rule out or confirm aspiration as the cause of the pneumonia. Current Diet Ordered: Regular/Thin Dentition: WNL, Natural Teeth Mental Status: Impaired - Pt presenting w/baseline severe expressive aphasia as Pt answers 'yes' to all questions and suspected mild receptive aphasia which intermittently affects Pt's auditory comprehension of basic 1 step directions - Penetration-Aspiration Scale Penetration-Aspiration Scale: OBJECTIVE ASSESSMENT OF SWALLOW FUNCTION (QUANTITATIVE ? PER TRIAL): PENETRATION / ASPIRATION SCALE (LESTER): 1 = does not enter airway 2 = enters airway/above vocal folds/ejected 3 = enters airway/above vocal folds/not ejected 4 = enters airway/contacts vocal folds/ejected 5 = enters airway/contacts vocal folds/not ejected 6 = enters airway/below vocal folds/ejected 7 = enters airway/below vocal folds/not ejected despite effort 8 = enters airway/below vocal folds/no effort - Oral Phase Labial Seal: No Labial Escape Tongue Control During Bolus Hold: Escape to lateral buccal cavity/floor of mouth Bolus Preparation/Mastication: Timely and efficient chewing and mashing Bolus Transport/Lingual Motion: Brisk tongue motion Oral Residue: Residue collection on oral structures - Only present on pudding trial which was cleared w/independent second swallow - Pharyngeal Phase Initiation of Pharyngeal Swallow: Bolus head in valleculae Soft Palate Elevation: No bolus between soft palate and pharyngeal wall Laryngeal Elevation: Comp. Superior move thyroid cart w/comp. apprx arytenoid cart-epig pet Anterior Hyoid Excursion: Partial anterior movement Epiglottic Movement: Complete inversion Laryngeal Vestibule Closure at Height of Swallow: Complete; no air/contrast in laryngeal vestibule Pharyngeal Stripping Wave: Present - diminished Pharyngoesophageal Segment Opening: Complete distension and complete duration; no obstruction of flow Tongue Base Retraction: Trace column of contrast between tongue base & post. pharyngeal wall Pharyngeal Residue: Complete pharyngeal clearance - Esophageal Phase Esophageal Clearance: Esophageal retention - Present in middle third of esophagus - Treatment Strategies Effects of treatment strategies attemped:: Double Swallow: Pt independent w/implementing second swallow when feeling remaining oral residue. Strategy was effective in clearing the oral residue. - Diagnosis/Impression Diagnosis: Pt's swallowing function is grossly WFL. Impression: The oral phase was primarily marked by mild suboptimal lingual control resulting in intermittent loss of bolus to floor of mouth. Pt typically presenting w/quick brisk AP movement of all textures presented. Pt demonstrating sufficient oral clearance across most trials and benefited from second swallow during pudding trial to clear remaining residue which he initiated independently. The pharyngeal phase was primarily marked by mildly delay pharyngeal swallow onset via head of bolus in the vallecula, however this did not appear to grossly affect swallow function as there were no observations of penetration/aspiration. Pt presenting w/mildly reduced hyoid excursion, stripping wave action, TB r etraction, however sufficient laryngeal vestibule closure, laryngeal elevation, epiglottic inversion, and PES duration/extension w/ no evidence of pharyngeal residue across all trials. The esophageal phase was primarily marked by esophageal retention w/o retrograde flow in the middle third. There is also questionable appearance of anterior esophageal webbing at the level of C4, however this does not appear to impact overall esophageal clearance. - Recommendations Diet: Regular Textures, Thin Liquids Compensatory Strategies: Small Bites, Small Sips, Alternate bites/solids and sips/liquids, Sitting upright Supervision: Assist as needed Recommend Repeat Modified Barium Swallow: No Need for Skilled Speech Therapy Services: No Recommended Referrals: GI Consult - Given evidence of esophageal retention would further consider additional assessment of the Pt's esophageal functioning, as it is outside the scope of the modified barium swallow study to objectively assess esophageal functioning, may additionally consider further workup. Education Completed: 1. Described result of evaluation., 2. Pt understands evaluation & agrees with goals and treatment plan., 4. Family/caregivers understand evaluation & agree w/ goals & tx plan. - Status Active ST Patient: Active - Contact Information [facility] Speech Therapy:: Leif Delgado.S., CF-ANODE WORKER [facility] [address] [place] [address] [email or web address] 06/15/21 18:00
[2021-06-15] MEDS: Menthol/Lanolin/Calamine/Znox 113 GM Tube 1 APPLIC TOPICAL (21:43)
[2021-06-15] MEDS: Famotidine 20 MG Tablet PO (21:44)
[2021-06-15] MEDS: Atorvastatin Calcium 40 MG Tablet PO (21:44)
[2021-06-15] MEDS: traZODone 100 MG Tablet PO (21:45)
[2021-06-16] VITALS (30 sets, daily range): BP systolic 111–141; BP diastolic 32–68; PULSE 50–86; RESP 13–32; TEMP 36.4–36.6; O2SAT 83–100; BMI 27.1
--- NOTE | 2021-06-16 05:55 | CT_ITS ---
PROCEDURE: CT GUIDED CORE NEEDLE BIOPSY OF A right upper lobe LUNG LESION INDICATION: Male, 65 years old. Right apical lung mass PHYSICIAN: Dr. MARAIH Levi CONSENT: Written informed consent was obtained having explained the risks, benefits and alternatives in detail with the patient who accepted the risks and agreed to proceed. Laboratory review and clinical assessment was performed. CONSCIOUS SEDATION PROTOCOL: The Drugs used were: 1 mg Versed, IV., and 25 mcg Fentanyl, IV. The sedation time was: 15 minutes. Conscious sedation was started at 9:11 AM and terminated at 9:26 AM. The conscious sedation protocol was independently monitored. RADIATION DOSAGE (If Supplied By Facility): CTDIvol = ( 11 ) mGy, DLP = ( 247.79 ) mGycm Individualized dose optimization techniques were used for this CT. TECHNIQUE: The patient was placed in the supine position. A noncontrast CT was performed to localize the lesion in the right upper lobe . The skin surface was prepped and draped in a sterile fashion. 1% lidocaine was used for local anesthesia. Using CT guidance, a 20-gauge coaxial biopsy device was advanced to the periphery of the lesion. A total of 4 core specimens were obtained. The specimens were placed in a formalin solution. A post procedure CT demonstrated no adverse sequelae or pneumothorax. The patient tolerated the procedure well without adverse event. A negative biopsy does not exclude malignancy. Further imaging or clinical followup based on patient condition and degree of clinical suspicion for malignancy. Suggest rebiopsy, if biopsy results do not match with clinical scenario. CT/Biopsy/Inj or Needle Placement IMPRESSION: 1. CT directed core needle biopsy of the right upper lobe mass using CT image guidance with image documentation as described. Pathology results are pending. 2. Conscious Sedation protocol utilized with independent monitoring. Electronically Signed: Peter Soto MD at 10:00 EST , Service support ,
[2021-06-16] MEDS: Ipratropium/Albuterol Sulfate 3 ML AMPUL.NEB INHALATION ×4 (06:43→23:26)
[2021-06-16 08:27] LABS: International Normalized Ratio 1.2; Prothrombin Time (Protime)PT. 14.2 SECONDS (11.7-14.9)
[2021-06-16 08:28] LABS: Partial Thromboplast Time 23.1 Seconds (24.1-36.2)
[2021-06-16] MEDS: fentaNYL 100 MCG/2 ML Ampul IV ×2 (09:11→11:01)
[2021-06-16] MEDS: Midazolam 2 MG/2 ML Syringe IV ×2 (09:11→11:01)
[2021-06-16] MEDS: Lidocaine 2% (20 ml mdv) 20 ML Vial INFILT ×2 (09:15→11:10)
--- NOTE | 2021-06-16 09:31 | NURSING ---
pt remains off unit
--- NOTE | 2021-06-16 10:49 | NURSING ---
PT BACK TO CT 2 FOR CHEST TUBE INSERTION AFTER COORDINATION OF CARE IN PERSON/BY PHONE BY DR LEMUS, DR RENTERIA, DR PEÑA AND DR URBANO.PT PROVIDED WITH ORAL SUCTION FOLLOWING HARSH MOIST COUGH WITH SMALL AMOUNT OF HEMOPTYSIS.
--- NOTE | 2021-06-16 10:52 | PN.HOSP_ITS ---
Subjective Subjective Follow-up on acute hypoxic respiratory failure secondary to possible aspiration pneumonia/lung mass: Patient was seen and examined. Here is status post chest tube insertion. Lung biopsy done with subsequent pneumothorax. He got percutaneous drainage of the right pneumothorax. Patient was sitting up, on 3 L of oxygen. Objective Data Objective Data Vital Signs: Vital Signs Temp Pulse Resp BP Pulse Ox 97.5 F L 57 L 18 132/50 H 86 06/16/21 08:50 06/16/21 10:26 06/16/21 10:26 06/16/21 10:26 06/16/21 10:26 Oxygen Flow Rate (L/min) [4] 2 Oxygen Flow Rate (L/min) [3] 2 Oxygen Flow Rate (L/min) [2] 2 Oxygen Flow Rate (L/min) [1 ( 2 Initial Baseline)] Oxygen Flow Rate (L/min) 4 Oxygen Delivery Method [4] Nasal Cannula Oxygen Delivery Method [3] Nasal Cannula Oxygen Delivery Method [2] Nasal Cannula Oxygen Delivery Method [1 ( Nasal Cannula Initial Baseline)] Oxygen Delivery Method Nasal Cannula Weight: 83.2 kg Body Mass Index (BMI) 27.1 Intake & Output: Intake and Output for Last 24 Hours 06/14/21 06/15/21 06/16/21 23:59 23:59 23:59 Intake Total 336 / 336 886 / 886 112 / 112 Output Total 1175 / 1175 800 / 800 755 / 755 Balance -839 / -839 86 / 86 -643 / -643 Lab / Micro Data Result Diagrams: 06/15/21 06:00 06/15/21 06:00 Labs: Laboratory Results - last 24 hr 06/16/21 08:05: PT 14.2, INR 1.2, APTT 23.1 L Micro: Microbiology 06/10/21 21:00 Blood Culture (Wb) - Left Hand Blood Culture - Final No growth in 5 days. 06/10/21 20:30 Blood Culture (Wb) - Anticubital Left Blood Culture - Final No growth in 5 days. 06/11/21 00:05 Urine, Clean Catch Streptococcus pneumoniae Antigen (M - Final 06/11/21 00:05 Urine, Clean Catch Legionella Antigen - Final 06/10/21 20:30 Nasal Secretion SARS-CoV-2 Antigen (Rapid) - Final Radiography Diagnostic Testing: Radiology Impression Biopsy CT 06/16/21 05:55 IMPRESSION: 1. CT directed core needle biopsy of the right upper lobe mass using CT image guidance with image documentation as described. Pathology results are pending. 2. Conscious Sedation protocol utilized with independent monitoring. Electronically Signed: Peter Soto MD at 10:00 EST , Service support , Physical Exam Narrative Physical exam: General: Alert, aphasic, on 3 L of oxygen HEENT: Atraumatic Oral: Moist Mucosa Neck: Supple Lungs: Diminished to auscultation Cardiovascular: HS I+II, regular, no murmurs Abdomen: Bowel Sounds Present, Soft, Non Tender Extremities: No edema [employer]: Aphasic, right upper extremity monoplegia Assessment & Plan Assessment/Plan (1) Acute respiratory failure with hypoxia: (2) Asthma exacerbation in COPD: (3) Infiltrate of lower lobe of right lung present on imaging study: PLAN: 1. Acute hypoxic respiratory failure secondary to probable aspiration pneumonia/right upper lobe lung mass Now on 3 L of oxygen; Continue on IV Unasyn for a total of 7 days 2. Acute right iatrogenic pneumothorax status post percutaneous drainage Patient is stable. 2. Dysphagia, appears resolved 3. Acute COPD exacerbation, continue on Solu-Medrol and breathing treatments 4. Relative hypotension, changes made to blood pressure medications, continue to monitor 5. Rest of his chronic medical conditions remained stable Meds reviewed 6. DVT prophylaxis?Lovenox subcu Charges/Coding Visit Charges Inpatient E&M: 85128 Subs Hosp L3
--- NOTE | 2021-06-16 11:30 | RAD_ITS ---
STUDY: X-RAY CHEST REASON FOR EXAM: Male, 65 years old. POST BX -- immediately post lung biopsy TECHNIQUE: AP inspiration and expiration views. COMPARISON: None. FINDINGS: There is evidence of a 20% right pneumothorax following the biopsy. RAD/Chest Insp/Exp 2 View IMPRESSION: 20% right pneumothorax following a right lung biopsy. Electronically Signed: Peter Soto MD at 15:18 EST , Service support ,
--- NOTE | 2021-06-16 11:41 | CT_ITS ---
STUDY: CT GUIDED PERCUTANEOUS DRAINAGE OF THE RIGHT PNEUMOTHORAX. REASON FOR EXAM: Male, 65 years old. PNEUMOTHORAX TUBE PLACEMENT RADIATION DOSAGE (If Supplied By Facility): CTDIvol = ( 11.8 ) mGy, DLP = ( 961.82 ) mGycm. Individualized dose optimization techniques were used for this CT.? TECHNIQUE: The procedure as well as the benefits and possible complications including bleeding were explained to the patient and the patient''s . Informed consent was obtained. The overlying skin in the right lateral hemithorax was prepped and draped in the usual sterile fashion. Following local anesthetic application, an 8 Tamazight percutaneous all purpose drainage catheter was placed into the right hemithorax. The tube was connected to a wall suction. There is complete resolution of the right pneumothorax. COMPARISON: Comparison is made with prior examination done earlier today. FINDINGS: Successful percutaneous drainage of the right pneumothorax. CT/CT Guidance Abscess Drg w/Cath IMPRESSION: Successful percutaneous drainage of the right pneumothorax. Electronically Signed: Peter Soto MD at 12:14 EST , Service support ,
--- NOTE | 2021-06-16 12:15 | RAD_ITS ---
STUDY: X-RAY CHEST REASON FOR EXAM: Male, 65 years old. CHEST TUBE -- CHEST TUBE TECHNIQUE: AP inspiration and expiration views. COMPARISON: Comparison is made with prior examination done earlier today. FINDINGS: There is resolution of the previously seen right pneumothorax following insertion of an 8 Swedish drainage catheter at the base of the right lung. RAD/Chest Insp/Exp 2 View IMPRESSION: Successful reduction of the right pneumothorax following percutaneous drainage. Electronically Signed: Peter Soto MD at 12:42 EST , Service support ,
--- NOTE | 2021-06-16 12:23 | CASEMGMT ---
KERRIE Bradley working with [facility], they are able to accept pt. Will notify when pt ready for dc.
[2021-06-16] MEDS: Potassium Chloride Oral Tablet 20 MEQ PO ×2 (12:58→16:54)
[2021-06-16] MEDS: LORazepam 0.5 MG Tablet PO ×2 (12:58→21:49)
[2021-06-16] MEDS: Loratadine 10 MG Tablet PO (12:58)
[2021-06-16] MEDS: Multivitamins,Ther W-Minerals Tablet 1 TABLET PO (12:58)
[2021-06-16] MEDS: Amiodarone 200 MG Tablet 100 MG PO (12:59)
[2021-06-16] MEDS: Fluticasone 0.05% 1 SPRAY NASAL.SRY 2 SPRAY NASAL (13:00)
[2021-06-16] MEDS: hydroCHLOROthiazide 12.5mg 12.5 MG PO (13:00)
[2021-06-16] MEDS: guaiFENesin 1,200 MG Tablet 1200 MG PO ×2 (13:01→21:52)
[2021-06-16] MEDS: Metoprolol Tartrate 25 MG Tablet 12.5 MG PO ×2 (13:01→21:52)
[2021-06-16] MEDS: Nystatin Ointment 1 APPLIC TOPICAL ×2 (13:01→22:03)
[2021-06-16] MEDS: Escitalopram Oxalate 20 MG Tablet PO (13:01)
[2021-06-16] MEDS: Ezetimibe 10 MG Tablet PO (13:02)
[2021-06-16] MEDS: amLODIPine 5 MG Tablet PO ×2 (13:02→21:51)
[2021-06-16] MEDS: Baclofen 10 MG Tablet 5 MG PO ×2 (14:08→21:51)
[2021-06-16] MEDS: traZODone 100 MG Tablet PO (21:51)
[2021-06-16] MEDS: Famotidine 20 MG Tablet PO (21:52)
[2021-06-16] MEDS: Atorvastatin Calcium 40 MG Tablet PO (21:52)
[2021-06-16] MEDS: 0.9% Saline Lock 10 ML Syringe IV (21:56)
[2021-06-16] MEDS: Acetaminophen 325 MG Tablet 650 MG PO (22:07)
[2021-06-17] VITALS (8 sets, daily range): BP systolic 131–139; BP diastolic 61–71; PULSE 50–87; RESP 16–18; TEMP 36.2–36.6; O2SAT 87–97
[2021-06-17] MEDS: Ipratropium/Albuterol Sulfate 3 ML AMPUL.NEB INHALATION ×3 (03:12→10:54)
--- NOTE | 2021-06-17 05:55 | RAD_ITS ---
STUDY: X-RAY CHEST REASON FOR EXAM: Male, 65 years old. pneumothorax TECHNIQUE: PA and lateral views of the chest. COMPARISON: 06/16/2021 FINDINGS: Interval retraction of the right-sided pleural drain lateral to the rib cage. No pneumothorax. Status post median sternotomy. The lungs are clear and expanded. There is no demonstrated pleural abnormality. There is moderate cardiac enlargement. Normal mediastinum and ying. Normal visualized pulmonary arteries. Normal visualized aortic arch and descending thoracic aorta. Normal visualized thoracic spine. Normal visualized ribs, clavicles, and shoulders. There is no demonstrated abnormality of the visualized soft tissue structures of the upper abdomen. RAD/Chest 2 V w/ Apical/Lordotic IMPRESSION: Interval retraction of the right-sided pleural drain superficial to the rib cage with no pneumothorax. Electronically Signed: Elias Sharma MD at 9:31 EST Tel , Service support ,
[2021-06-17] MEDS: 0.9% Saline Lock 10 ML Syringe IV (06:39)
[2021-06-17] MEDS: Baclofen 10 MG Tablet 5 MG PO ×2 (06:41→12:57)
--- NOTE | 2021-06-17 08:07 | CON.PCM.SX_ITS ---
Assessment & Plan Assessment/Plan (1) Pneumothorax after biopsy: PLAN: Patient had a pneumothorax of the right lung after lung biopsy. Percutaneous drain was placed and the patient is on suction. He has no air leak today. He is having shortness of breath but he also has a pneumonia. I am getting an x-ray this morning and if the x-ray is stable with no pneumothorax I will place an waterseal for 24 hours and if there is no reaccumulation of pneumothorax I will remove the tube tomorrow. Jesus Dior MD Pager: [facility] [address] [place] [address], [address] [place] [address] Office: HPI Consult Data Date of Consult: 06/17/21 HPI Narrative HPI Narrative: ROBERTA ZEE, is a 65 M here with pneumonia. I was consulted as the patient developed pneumothorax after lung biopsy yesterday. This morning the patient reports no pain on that side or discomfort. [facility] Medical History Anemia Aphasia as late effect of stroke Atherosclerosis of coronary artery without angina pectoris Carotid artery disease Cerebral arterial aneurysm Chronic atrial fibrillation Confusion Debility Dysphagia HTN (hypertension) Hyperlipidemia Left acute arterial ischemic stroke, MCA (middle cerebral artery) (10/31/16) nursing home current use of amiodarone Lower resp. tract infection Mixed obstructive and restrictive ventilatory defect Respiratory failure Sepsis Smoker Stroke/cerebrovascular accident Home Medications famotidine 20 mg PO QHS 12/21/16 [History Last Taken 03/10/19] baclofen 5 mg PO TID tab 02/05/17 [Rx Last Taken 03/11/19] multivitamin,ef-nwvb-jvnhihat 1 tab PO DAILY 12/04/18 [History Last Taken 03/11/19] loratadine 10 mg PO DAILY 03/11/19 [History Last Taken 03/11/19] lorazepam 0.5 mg PO BID 03/11/19 [History Last Taken 03/11/19] fluticasone propionate 50 mcg/actuation nasal spray,suspension 2 spray INTRANASAL DAILY PRN PRN #18.2 ml 03/10/20 [Rx Last Taken Unknown] amiodarone 200 mg tablet 100 mg PO DAILY #15 tab 04/19/20 [Rx Last Taken Unknown] amlodipine 10 mg tablet 5 mg PO BID #30 tab 04/19/20 [Rx Last Taken Unknown] apixaban 5 mg tablet 5 mg PO BID #60 tab 04/19/20 [Rx Last Taken Unknown] atorvastatin 40 mg tablet 40 mg PO QHS #30 tab 04/19/20 [Rx Last Taken Unknown] clopidogrel 75 mg tablet 75 mg PO DAILY #30 tab 04/19/20 [Rx Last Taken Unknown] potassium chloride 10 mEq tablet,extended release 20 meq PO TID #90 tab 04/19/20 [Rx Last Taken Unknown] trazodone 50 mg tablet 100 mg PO QHS tab 04/19/20 [History Last Taken Unknown] albuterol sulfate 90 mcg/actuation aerosol inhaler 2 puff INHALATION Q6H PRN #18 g 01/19/21 [Rx Last Taken Unknown] metoprolol tartrate 25 mg tablet 12.5 mg PO BID #30 tab 04/19/21 [Rx Last Taken Unknown] ezetimibe 10 mg PO DAILY 04/22/21 [History Last Taken Unknown] hydrochlorothiazide 12.5 mg PO DAILY 04/22/21 [History Last Taken Unknown] sildenafil 50 mg PO PRN PRN 04/22/21 [History Last Taken Unknown] doxycycline hyclate 100 mg PO BID 06/10/21 [History Last Taken 06/10/21 09:00] fluticasone propionate [Flonase Allergy Relief] 2 spray INTRANASAL DAILY 06/10/21 [History Last Taken Unknown] escitalopram oxalate 20 mg PO DAILY 06/11/21 [History Last Taken Unknown] Allergy/AdvReac Type Severity Reaction Status Date / Time azithromycin Allergy Intermediate Hives Verified 06/10/21 20:03 [From Zithromax Z-Dayo] lisinopril Allergy Intermediate Hives and Verified 06/10/21 20:03 diarrhea Sulfa (Sulfonamide Allergy Hives Verified 06/10/21 20:03 Antibiotics) Family History Mother Diabetes Father AAA (abdominal aortic aneurysm) Surgical History History of gastrostomy tube placement (11/07/16) History of tracheostomy (11/07/16) 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 Social History household members: spouse Smoking Status: Former smoker how long ago did patient quit smokin years ago, 2ppd second hand exposure: Yes alcohol intake: never substance use type: does not use caffeine: No ROS Constitutional Constitutional: Denies anorexia or chills Eyes Eyes: Denies blurry vision ENT HEENT: Denies abnormal hearing Cardiovascular Cardiovascular: Denies chest pain Respiratory/Chest Respiratory/Chest: Reports cough and dyspnea Gastrointestinal Gastrointestinal: Denies abdominal pain, nausea or vomiting Physical Exam Const alert and oriented x3 General Appearance: cooperative Exam Limitations: no limitations Eyes PERRL Chest inspection of chest normal Resp normal respiratory effort Cardio Rate: regular rate GI soft to palpation and non-tender Lab / Micro Data Result Diagrams: 06/15/21 06:00 06/15/21 06:00 Labs: Laboratory Results - last 24 hr 06/16/21 08:05: PT 14.2, INR 1.2, APTT 23.1 L Micro: Microbiology 06/10/21 21:00 Blood Culture (Wb) - Left Hand Blood Culture - Final No growth in 5 days. 06/10/21 20:30 Blood Culture (Wb) - Anticubital Left Blood Culture - Final No growth in 5 days. Radiology Impression Biopsy CT 06/16/21 05:55 IMPRESSION: 1. CT directed core needle biopsy of the right upper lobe mass using CT image guidance with image documentation as described. Pathology results are pending. 2. Conscious Sedation protocol utilized with independent monitoring. Electronically Signed: Peter Soto MD at 10:00 EST , Service support , Chest X-Ray 06/16/21 11:30 IMPRESSION: 20% right pneumothorax following a right lung biopsy. Electronically Signed: Peter Soto MD at 15:18 EST , Service support , Abscess Drainage CT 06/16/21 11:41 IMPRESSION: Successful percutaneous drainage of the right pneumothorax. Electronically Signed: Peter Soto MD at 12:14 EST , Service support , Chest X-Ray 06/16/21 12:15 IMPRESSION: Successful reduction of the right pneumothorax following percutaneous drainage. Electronically Signed: Peter Soto MD at 12:42 EST , Service support ,
[2021-06-17] MEDS: Enoxaparin 40 MG/0.4 ML Syringe SC (09:26)
[2021-06-17] MEDS: Potassium Chloride Oral Tablet 20 MEQ PO ×2 (09:26→12:57)
[2021-06-17] MEDS: Ezetimibe 10 MG Tablet PO (09:27)
[2021-06-17] MEDS: LORazepam 0.5 MG Tablet PO (09:27)
[2021-06-17] MEDS: Multivitamins,Ther W-Minerals Tablet 1 TABLET PO (09:27)
[2021-06-17] MEDS: hydroCHLOROthiazide 12.5mg 12.5 MG PO (09:28)
[2021-06-17] MEDS: amLODIPine 5 MG Tablet PO (09:28)
[2021-06-17] MEDS: Nystatin Ointment 1 APPLIC TOPICAL (09:28)
[2021-06-17] MEDS: guaiFENesin 1,200 MG Tablet 1200 MG PO (09:28)
[2021-06-17] MEDS: Fluticasone 0.05% 1 SPRAY NASAL.SRY 2 SPRAY NASAL (09:29)
[2021-06-17] MEDS: Loratadine 10 MG Tablet PO (09:29)
[2021-06-17] MEDS: Metoprolol Tartrate 25 MG Tablet 12.5 MG PO (09:30)
[2021-06-17] MEDS: Amiodarone 200 MG Tablet 100 MG PO (09:30)
[2021-06-17] MEDS: Escitalopram Oxalate 20 MG Tablet PO (09:32)
--- NOTE | 2021-06-17 10:00 | PN_ITS ---
Progress Note I reviewed the patient's x-ray from this morning appears the chest tube is removed itself from the pleural cavity. I recommend to be removed fully and the x-ray did not show any pneumothorax. Repeat in 4 hours to ensure that the pneumothorax does not reaccumulate. Jesus Dior MD Pager: [facility] [address] [place] [address], [address] [place] [address] Office:
--- NOTE | 2021-06-17 10:00 | PCM.PN.BLA ---
Progress Note I reviewed the patient's x-ray from this morning appears the chest tube is removed itself from the pleural cavity. I recommend to be removed fully and the x-ray did not show any pneumothorax. Repeat in 4 hours to ensure that the pneumothorax does not reaccumulate. Jesus Dior MD Pager: [facility] [address] [place] [address], [address] [place] [address] Office:
--- NOTE | 2021-06-17 11:29 | PCM.PN.HOSP ---
Objective Data Objective Data Vital Signs: Vital Signs Temp Pulse Resp BP Pulse Ox 97.9 F 87 18 131/68 H 94 06/17/21 10:00 06/17/21 10:55 06/17/21 10:55 06/17/21 10:00 06/17/21 10:00 Oxygen Flow Rate (L/min) [9] 15 Oxygen Flow Rate (L/min) [8] 15 Oxygen Flow Rate (L/min) [7] 15 Oxygen Flow Rate (L/min) [6] 15 Oxygen Flow Rate (L/min) [5] 15 Oxygen Flow Rate (L/min) [4] 15 Oxygen Flow Rate (L/min) [3] 15 Oxygen Flow Rate (L/min) [2] 6 Oxygen Flow Rate (L/min) [1 ( 5 Initial Baseline)] Oxygen Flow Rate (L/min) 3 Oxygen Delivery Method [9] Non-Rebreather Oxygen Delivery Method [8] Non-Rebreather Oxygen Delivery Method [7] Non-Rebreather Oxygen Delivery Method [6] Non-Rebreather @ 15L/min Oxygen Delivery Method [5] Non-Rebreather @ 15L/min Oxygen Delivery Method [4] Non-Rebreather @ 15L/min Oxygen Delivery Method [3] Non-Rebreather @ 15L/min Oxygen Delivery Method [2] Nasal Cannula Oxygen Delivery Method [1 ( Nasal Cannula Initial Baseline)] Oxygen Delivery Method Nasal Cannula Weight: 83.2 kg Body Mass Index (BMI) 27.1 Intake & Output: Intake and Output for Last 24 Hours 06/15/21 06/16/21 06/17/21 23:59 23:59 23:59 Intake Total 886 / 886 1086 / 1086 Output Total 800 / 800 1370 / 1370 520 / 520 Balance 86 / 86 -284 / -284 -520 / -520 Lab / Micro Data Result Diagrams: 06/15/21 06:00 06/15/21 06:00 Micro: Microbiology 06/10/21 21:00 Blood Culture (Wb) - Left Hand Blood Culture - Final No growth in 5 days. 06/10/21 20:30 Blood Culture (Wb) - Anticubital Left Blood Culture - Final No growth in 5 days. 06/11/21 00:05 Urine, Clean Catch Streptococcus pneumoniae Antigen (M - Final 06/11/21 00:05 Urine, Clean Catch Legionella Antigen - Final 06/10/21 20:30 Nasal Secretion SARS-CoV-2 Antigen (Rapid) - Final Radiography Diagnostic Testing: Radiology Impression Biopsy CT 06/16/21 05:55 IMPRESSION: 1. CT directed core needle biopsy of the right upper lobe mass using CT image guidance with image documentation as described. Pathology results are pending. 2. Conscious Sedation protocol utilized with independent monitoring. Electronically Signed: Peter Soto MD at 10:00 EST , Service support , Chest X-Ray 06/16/21 11:30 IMPRESSION: 20% right pneumothorax following a right lung biopsy. Electronically Signed: Peter Soto MD at 15:18 EST , Service support , Abscess Drainage CT 06/16/21 11:41 IMPRESSION: Successful percutaneous drainage of the right pneumothorax. Electronically Signed: Peter Soto MD at 12:14 EST , Service support , Chest X-Ray 06/16/21 12:15 IMPRESSION: Successful reduction of the right pneumothorax following percutaneous drainage. Electronically Signed: Peter Soto MD at 12:42 EST , Service support , Apical Lordotic X-Ray 06/17/21 05:55 IMPRESSION: Interval retraction of the right-sided pleural drain superficial to the rib cage with no pneumothorax. Electronically Signed: Elias Sharma MD at 9:31 EST Tel , Service support ,
--- NOTE | 2021-06-17 12:33 | CASEMGMT ---
Spoke with pt nurse Jennifer to make aware pt is only ordered 2L with exertion of O2, will need tested on this and if need continuous, new script to [facility]. ST added to [facility] order per hospitalist. Green sheet on chart for O2 and to notify [facility] of dc.
--- NOTE | 2021-06-17 13:15 | RAD_ITS ---
STUDY: X-RAY CHEST REASON FOR EXAM: Male, 65 years old. Follow-up pneumothorax TECHNIQUE: Frontal view of the chest COMPARISON: 06/16/21 FINDINGS: The lungs are clear. There are no pleural effusions. There is no pneumothorax. The heart is stable in size. Again noted are sternotomy wires. The visualized osseous structures are within normal limits. RAD/Chest 1 View (Portable) IMPRESSION: No acute thoracic pathology. Electronically Signed: Surya Aiken MD at 14:43 EST Tel , Service support ,
--- NOTE | 2021-06-17 14:10 | PCM.DC ---
Discharge Instructions Follow Up Care Test Results: Test results from this visit will be discussed in further detail at your follow-up appointment, if applicable. Discharge Plan Admission Admit Date/Time: 06/10/21 22:56 Primary Reason for Your Visit: Acute respiratory failure/CAP/Lung mass Attending Provider: Pilar Garcia Primary Care Provider: Conrad Arroyo Consulting Providers: Trip Ellis ; Doug Mcgrath ; Soraya Pate [employer] ; Jesus Dior Instructions Patient Instructions: Discharge Instructions Needle Biopsy: Lung Discharge Orders/Prescriptions Prescriptions: New nystatin 100,000 unit/gram Ointment 1 applic topical BID Qty: 0 RF: 0 menthol-zinc oxide [Calmoseptine] 0.44-20.6 % Ointment 1 applic topical TID PRN (Reason: Diaper Rash) Qty: 0 RF: 0 amoxicillin-pot clavulanate [Augmentin] 875-125 mg tablet 1 tab PO BID 1 Days Qty: 2 RF: 0 prednisone 10 mg tablet 10 mg PO DAILY 12 Days Qty: 12 RF: 0 Continued Complete Multivitamin tablet 1 tab PO DAILY RF: 0 amiodarone 200 mg tablet 100 mg PO DAILY Qty: 15 RF: 12 amlodipine 10 mg tablet 5 mg PO BID Qty: 30 RF: 12 apixaban 5 mg tablet 5 mg PO BID Qty: 60 RF: 12 atorvastatin 40 mg tablet 40 mg PO QHS Qty: 30 RF: 11 clopidogrel 75 mg tablet 75 mg PO DAILY Qty: 30 RF: 12 potassium chloride 10 mEq tablet extended release 20 meq PO TID Qty: 90 RF: 12 fluticasone propionate 50 mcg/actuation spray,suspension 2 spray INTRANASAL DAILY PRN PRN (Reason: Allergies) Qty: 18.2 RF: 6 famotidine 20 MG tablet 20 mg PO QHS RF: 0 baclofen 10 MG tablet 5 mg PO TID RF: 0 lorazepam 0.5 MG tablet 0.5 mg PO BID RF: 0 loratadine 10 MG tablet 10 mg PO DAILY RF: 0 trazodone 50 mg tablet 100 mg PO QHS RF: 0 sildenafil 50 mg tablet 50 mg PO PRN PRN (Reason: Erectile Dysfunction) RF: 0 ezetimibe 10 mg tablet 10 mg PO DAILY RF: 0 hydrochlorothiazide 12.5 mg tablet 12.5 mg PO DAILY RF: 0 fluticasone propionate [Flonase Allergy Relief] 50 mcg/actuation [place],Suspension 2 spray INTRANASAL DAILY RF: 0 escitalopram oxalate 20 mg Tablet 20 mg PO DAILY RF: 0 albuterol sulfate 90 mcg/actuation HFA aerosol inhaler 2 puff INHALATION Q6H PRN (Reason: shortness of breath or wheezing) Qty: 18 RF: 6 metoprolol tartrate 25 mg tablet 12.5 mg PO BID Qty: 30 RF: 12 Discontinued doxycycline hyclate 100 mg Tablet 100 mg PO BID RF: 0 Referrals / Follow Up: Doug Mcgrath DO [STAFF PHYSICIAN] - Within 1 Week Conrad Arroyo MD [Primary Care Provider] - Within 2 Weeks Disposition Disposition (needs filled in before D/C Order can be placed): Home Health Service
--- NOTE | 2021-06-17 15:52 | PCM.DC.SUM ---
Providers Date of Admission: 06/10/21 Date of Discharge: 06/17/21 Primary Care Physician: Dr. Conrad Arroyo MD Consultations 06/11/21 10:24 Consult: Neurobiologist / Pulmonary Medicine Routine Consulting Provider: Pulmonary Medicine michael Ringle Reason for Consult: Lung mass EMERGENT Consult: No Notified: Yes Date Notified: 06/11/21 Time Notified: 10:54 Method of Notification: Text 06/16/21 10:53 Consult: General Surgery Routine Consulting Provider: Jesus Dior Reason for Consult: Pneumothorax EMERGENT Consult: No Notified: Yes Date Notified: 06/16/21 Time Notified: 10:55 Method of Notification: Verbal Method of Consult:: In-Person Comments:: post lung biopsy 11 am 06/16/21 17:37 Consult: Gastroenterology Routine Consulting Provider: [facility] Reason for Consult: Dysphagia, abnormal MBS EMERGENT Consult: No Notified: Yes Date Notified: 06/16/21 Time Notified: 17:37 Method of Notification: Provider Initiated Method of Consult:: In-Person Comments:: pt had MBS 06/15-pt non verbal, difficult comm. - Reason For Visit: PNEUMONIA Diagnosis Discharge Diagnosis (1) Pneumothorax after biopsy: Status: Resolved Code(s): J95.811 - Postprocedural pneumothorax (2) Acute respiratory failure with hypoxia: Status: Acute Code(s): J96.01 - Acute respiratory failure with hypoxia (3) Infiltrate of lower lobe of right lung present on imaging study: Status: Acute Code(s): R91.8 - Other nonspecific abnormal finding of lung field (4) Mass of upper lobe of right lung: Status: Acute Code(s): R91.8 - Other nonspecific abnormal finding of lung field Medications at Discharge Home Medications famotidine 20 mg PO QHS 12/21/16 baclofen 5 mg PO TID tab 02/05/17 multivitamin,[id number]-dhwa-dxlcrkks 1 tab PO DAILY 12/04/18 loratadine 10 mg PO DAILY 03/11/19 lorazepam 0.5 mg PO BID 03/11/19 fluticasone propionate 50 mcg/actuation nasal spray,suspension 2 spray INTRANASAL DAILY PRN PRN #18.2 ml 03/10/20 amiodarone 200 mg tablet 100 mg PO DAILY #15 tab 04/19/20 amlodipine 10 mg tablet 5 mg PO BID #30 tab 04/19/20 apixaban 5 mg tablet 5 mg PO BID #60 tab 04/19/20 atorvastatin 40 mg tablet 40 mg PO QHS #30 tab 04/19/20 clopidogrel 75 mg tablet 75 mg PO DAILY #30 tab 04/19/20 potassium chloride 10 mEq tablet,extended release 20 meq PO TID #90 tab 04/19/20 trazodone 50 mg tablet 100 mg PO QHS tab 04/19/20 albuterol sulfate 90 mcg/actuation aerosol inhaler 2 puff INHALATION Q6H PRN #18 g 01/19/21 metoprolol tartrate 25 mg tablet 12.5 mg PO BID #30 tab 04/19/21 ezetimibe 10 mg PO DAILY 04/22/21 sildenafil 50 mg PO PRN PRN 04/22/21 fluticasone propionate [Flonase Allergy Relief] 2 spray INTRANASAL DAILY 06/10/21 escitalopram oxalate 20 mg PO DAILY 06/11/21 amoxicillin-pot clavulanate [Augmentin] 1 tab PO BID 1 Days #2 tab 06/17/21 hydrochlorothiazide 12.5 mg PO DAILY 30 Days #30 tab 06/17/21 menthol-zinc oxide [Calmoseptine] 1 applic TOPICAL TID PRN #0 g 06/17/21 nystatin 1 applic TOPICAL BID #0 g 06/17/21 prednisone See Taper PO DAILY #30 tab 06/17/21 Hospital Course Operations None Procedures None Summary of Care Provided Minutes Spent on Discharge: 45 Hospital Course: 65-year-old male with multiple comorbidities including 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 Patient usually wears 2 L oxygen at night but that has increased recently. Patient's work-up in the ED was significant for an infiltrate in the right lower lobe. Patient was admitted to the [facility] floor and managed on IV Unasyn and also has acute hypoxic respiratory failure. He had elevated D-dimer and CTA was ordered which revealed a large mass in the right upper lobe concerning for malignancy. Patient was on Eliquis and Plavix and dose were held for 5 days. Pulmonology was consulted during this hospital stay. He had a CT-guided biopsy of the right upper lobe and patient develop iatrogenic pneumothorax. He had a percutaneous drain placed. Patient was monitored overnight with no acute events. General surgery was consulted. Patient's drain was removed, repeat chest x-ray did not show any new worsening or new pneumothorax. Pneumothorax appears to have resolved. Patient was evaluated for oxygen and remained on his home oxygen requirements. He was discharged home to complete 1 week of Augmentin. 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 06/10/21 20:30 Blood Culture (Wb) - Anticubital Left Blood Culture - Final No growth in 5 days. 06/11/21 00:05 Urine, Clean Catch Streptococcus pneumoniae Antigen (M - Final 06/11/21 00:05 Urine, Clean Catch Legionella Antigen - Final 06/10/21 20:30 Nasal Secretion SARS-CoV-2 Antigen (Rapid) - Final Radiography Diagnostic Testing: Radiology Impression Apical Lordotic X-Ray 06/17/21 05:55 IMPRESSION: Interval retraction of the right-sided pleural drain superficial to the rib cage with no pneumothorax. Electronically Signed: Elias Sharma MD at 9:31 EST Tel , Service support , Chest X-Ray 06/17/21 13:15 IMPRESSION: No acute thoracic pathology. Electronically Signed: Surya Aiken MD at 14:43 EST Tel , Service support , D/C Instructions Discharge Diet: Low fat / Low cholesterol and 2000 mg Sodium Diet Meaningful Use Info Meaningful Use Diagnoses (Choose all that apply): None applicable Discharge Plan Admission Admit Date/Time: 06/10/21 22:56 Primary Reason for Your Visit: Acute respiratory failure/CAP/Lung mass Attending Provider: Pilar Garcia Primary Care Provider: Conrad Arroyo Consulting Providers: Trip Ellis ; Doug Mcgrath ; Soraya Pate MILITARY PROFESSIONAL ; Jesus Dior Instructions Patient Instructions: Discharge Instructions Needle Biopsy: Lung Discharge Orders/Prescriptions Prescriptions: New nystatin 100,000 unit/gram Ointment 1 applic topical BID Qty: 0 RF: 0 menthol-zinc oxide [Calmoseptine] 0.44-20.6 % Ointment 1 applic topical TID PRN (Reason: Diaper Rash) Qty: 0 RF: 0 amoxicillin-pot clavulanate [Augmentin] 875-125 mg tablet 1 tab PO BID 1 Days Qty: 2 RF: 0 prednisone 10 mg tablet See Taper mg PO DAILY Qty: 30 RF: 0 Continued Complete Multivitamin tablet 1 tab PO DAILY RF: 0 amiodarone 200 mg tablet 100 mg PO DAILY Qty: 15 RF: 12 amlodipine 10 mg tablet 5 mg PO BID Qty: 30 RF: 12 apixaban 5 mg tablet 5 mg PO BID Qty: 60 RF: 12 atorvastatin 40 mg tablet 40 mg PO QHS Qty: 30 RF: 11 clopidogrel 75 mg tablet 75 mg PO DAILY Qty: 30 RF: 12 potassium chloride 10 mEq tablet extended release 20 meq PO TID Qty: 90 RF: 12 fluticasone propionate 50 mcg/actuation spray,suspension 2 spray INTRANASAL DAILY PRN PRN (Reason: Allergies) Qty: 18.2 RF: 6 famotidine 20 MG tablet 20 mg PO QHS RF: 0 baclofen 10 MG tablet 5 mg PO TID RF: 0 lorazepam 0.5 MG tablet 0.5 mg PO BID RF: 0 loratadine 10 MG tablet 10 mg PO DAILY RF: 0 trazodone 50 mg tablet 100 mg PO QHS RF: 0 sildenafil 50 mg tablet 50 mg PO PRN PRN (Reason: Erectile Dysfunction) RF: 0 ezetimibe 10 mg tablet 10 mg PO DAILY RF: 0 fluticasone propionate [Flonase Allergy Relief] 50 mcg/actuation [place],Suspension 2 spray INTRANASAL DAILY RF: 0 escitalopram oxalate 20 mg Tablet 20 mg PO DAILY RF: 0 hydrochlorothiazide 12.5 mg tablet 12.5 mg PO DAILY 30 Days Qty: 30 RF: 0 albuterol sulfate 90 mcg/actuation HFA aerosol inhaler 2 puff INHALATION Q6H PRN (Reason: shortness of breath or wheezing) Qty: 18 RF: 6 metoprolol tartrate 25 mg tablet 12.5 mg PO BID Qty: 30 RF: 12 Discontinued doxycycline hyclate 100 mg Tablet 100 mg PO BID RF: 0 Referrals / Follow Up: Doug Mcgrath DO [STAFF PHYSICIAN] - Within 1 Week Conrad Arroyo MD [Primary Care Provider] - Within 2 Weeks Disposition Disposition (needs filled in before D/C Order can be placed): Home Health Service Charges/Coding Visit Charges Inpatient E&M: 53362 Disch Hosp
--- NOTE | 2021-06-19 14:49 | CASEMGMT ---
DIANE ROSARIO Discharge Follow-up Phone Call: KAITY: Aubrey Strata: 4 Call Date: 06/19/21 Discharge Date: 06/17/21 Time of Call: 1449 Duration: 1 min Admitting Diagnosis: Pneumonia RN ABRAHAM attempted to complete follow-up phone call after recent hospitalization. No answer, voice message left with return contact information.
== END 2021-06-17 16:42 | disposition home health service (06) | DRG 177 ==
LOC: ED 21:56 → MS3 22:17
PROVIDERS: Internal Medicine; Internal Medicine Critical Care Medicine; Emergency Provider Emergency Medicine; PCP Family Medicine; Visit Provider Internal Medicine
DX: J69.0 Pneumonitis due to inhalation of food and vomit (principal); J96.01 Acute respiratory failure with hypoxia; I63.9 Cerebral infarction, unspecified; J44.1 Chronic obstructive pulmonary disease with (acute) exacerbation; J95.811 Postprocedural pneumothorax; I69.351 Hemiplegia and hemiparesis following cerebral infarction affecting right dominant side; J45.901 Unspecified asthma with (acute) exacerbation; J44.0 Chronic obstructive pulmonary disease with (acute) lower respiratory infection; J84.10 Pulmonary fibrosis, unspecified; I69.320 Aphasia following cerebral infarction; Z99.81 Dependence on supplemental oxygen; Z87.891 Personal history of nicotine dependence; Z93.1 Gastrostomy status; Z79.02 Long term (current) use of antithrombotics/antiplatelets; I48.0 Paroxysmal atrial fibrillation; Z66 Do not resuscitate; I10 Essential (primary) hypertension; E78.5 Hyperlipidemia, unspecified; R13.10 Dysphagia, unspecified
CPT/HCPCS: 36415; 71045; 71046; 71047; 71275; 74230; 75989; 77012; 80048; 80053; 81001; 83605; 85025; 85379; 85610; 85730; 87040; 87426; 87449; 88172; 88305; 88313; 92526; 92611; 93005; 94640; 94762; 97110; 97161; 97166; 97530; 97535; 99156; 99157; 99251; 99285; 99406; J7040; J7050; Q9967; A4216; C2613; G0463; J0295

== ENCOUNTER 2021-06-19 05:18 | Inpatient (IN) | payer MEDICARE, MEDICAID, SELFPAY ==
[2021-06-19] VITALS (11 sets, daily range): BP systolic 122–173; BP diastolic 61–72; PULSE 54–62; RESP 16–18; TEMP 36.2–37.1; O2SAT 85–97; BMI 29.1
--- NOTE | 2021-06-19 05:22 | RAD_ITS ---
STUDY: X-RAY CHEST REASON FOR EXAM: Male, 65 years old patient with dyspnea. TECHNIQUE: Single AP portable view of the chest. COMPARISON: 06/17/2021. FINDINGS: Cardiac monitoring leads are present. The patient has had a sternotomy. There is hyperinflation of the lungs consistent with chronic obstructive lung disease (COPD). There is a large right-sided pneumothorax. Estimated size is about 50% of expected hemothorax. There is a right upper lobe mass like process that measures approximately 5.7 cm. There is interstitial thickening present throughout the left lung. There is mild cardiac enlargement. Normal mediastinum and ying. There is prominence of the pulmonary hilar arteries without peripheral pulmonary vascular congestion, suggesting pulmonary hypertension. There is atherosclerotic calcification of the aortic arch with tortuosity. There are diffuse degenerative changes of the visualized thoracic spine. Normal visualized ribs, clavicles, and shoulders. There is no demonstrated abnormality of the visualized soft tissue structures of the upper abdomen. RAD/Chest 1 View (Portable) IMPRESSION: 1. Large right-sided pneumothorax. 2. 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 N.B. : The above Results were Read Back by Natali Adkins MD to Sin Garsia MD, and understanding confirmed on 06/19/2021 06:01:20 (ET). Electronically Signed: Natali Adkins MD at 6:02 EST , Service support ,
--- NOTE | 2021-06-19 05:22 | EKG12_ITS ---
Test Reason : SOB Blood Pressure : / mmHG Vent. Rate : 058 BPM Atrial Rate : 058 BPM P-R Int : 200 ms QRS Dur : 086 ms QT Int : 486 ms P-R-T Axes : 080 -20 066 degrees QTc Int : 477 ms Sinus bradycardia Inferior infarct , age undetermined Abnormal ECG Confirmed by LITO WHITMAN, OLVIN ([id number]), web content editor KHRIS HOPKINS ([id number]) on 06/21/2021 9:39:06 AM Referred By: RU Confirmed By:OLVIN MORSE MD
--- NOTE | 2021-06-19 05:24 | ED.VIS.DYS ---
HPI History of Present Illness Chief Complaint: Shortness of Breath Detail of Chief Complaint: Breath worse over the last 2 days Informant: patient and spouse/S.O. Narrative Narrative: Patient presents to the emergency department from home via EMS. Patient had low oxygen saturations down to 86% on his 3 L. states that he is not been leaving his oxygen on. Patient fairly was admitted last week for pneumonia and had a lung biopsy and required a chest tube. Patient's not had a fever. He is coughing. He denies chest pain. Patient really cannot give history as he is nonverbal related to prior stroke so most of the history comes from the patient's . He denies any chest pain. Patient has been vaccinated against COVID-19. 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 tract infection Mixed obstructive and restrictive ventilatory defect Respiratory failure Sepsis Smoker Stroke/cerebrovascular accident Home Medications famotidine 20 mg PO QHS 12/21/16 [History Last Taken 03/10/19] baclofen 5 mg PO TID tab 02/05/17 [Rx Last Taken 03/11/19] multivitamin,[id number] 1 tab PO DAILY 12/04/18 [History Last Taken 03/11/19] loratadine 10 mg PO DAILY 03/11/19 [History Last Taken 03/11/19] lorazepam 0.5 mg PO BID 03/11/19 [History Last Taken 03/11/19] amiodarone 200 mg tablet 100 mg PO DAILY #15 tab 04/19/20 [Rx Last Taken Unknown] amlodipine 10 mg tablet 5 mg PO BID #30 tab 04/19/20 [Rx Last Taken Unknown] apixaban 5 mg tablet 5 mg PO BID #60 tab 04/19/20 [Rx Last Taken Unknown] atorvastatin 40 mg tablet 40 mg PO QHS #30 tab 04/19/20 [Rx Last Taken Unknown] clopidogrel 75 mg tablet 75 mg PO DAILY #30 tab 04/19/20 [Rx Last Taken Unknown] potassium chloride 10 mEq tablet,extended release 20 meq PO TID #90 tab 04/19/20 [Rx Last Taken Unknown] trazodone 50 mg tablet 100 mg PO QHS tab 04/19/20 [History Last Taken Unknown] albuterol sulfate 90 mcg/actuation aerosol inhaler 2 puff INHALATION Q6H PRN #18 g 01/19/21 [Rx Last Taken Unknown] metoprolol tartrate 25 mg tablet 12.5 mg PO BID #30 tab 04/19/21 [Rx Last Taken Unknown] ezetimibe 10 mg PO DAILY 04/22/21 [History Last Taken Unknown] sildenafil 50 mg PO PRN PRN 04/22/21 [History Last Taken Unknown] fluticasone propionate [Flonase Allergy Relief] 2 spray INTRANASAL DAILY 06/10/21 [History Last Taken Unknown] escitalopram oxalate 20 mg PO DAILY 06/11/21 [History Last Taken Unknown] hydrochlorothiazide 12.5 mg PO DAILY 30 Days #30 tab 06/17/21 [Rx Last Taken Unknown] menthol-zinc oxide [Calmoseptine] 1 applic TOPICAL TID PRN #0 g 06/17/21 [Rx Last Taken Unknown] nystatin 1 applic TOPICAL BID #0 g 06/17/21 [Rx Last Taken Unknown] prednisone See Taper PO DAILY #30 tab 06/17/21 [Rx Last Taken Unknown] Allergy/AdvReac Type Severity Reaction Status Date / Time azithromycin Allergy Intermediate Hives Verified 06/19/21 05:24 [From Zithromax Z-Dayo] lisinopril Allergy Intermediate Hives and Verified 06/19/21 05:24 diarrhea Sulfa (Sulfonamide Allergy Hives Verified 06/19/21 05:24 Antibiotics) Family History Mother Diabetes Father AAA (abdominal aortic aneurysm) Surgical History History of gastrostomy tube placement (11/07/16) History of tracheostomy (11/07/16) 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 Social History household members: spouse Smoking Status: Former smoker how long ago did patient quit smokin years ago, 2ppd second hand exposure: Yes alcohol intake: never substance use type: does not use caffeine: No ROS ROS ED Constitutional Constitutional ED: Reports systems reviewed and no addt'l complaints, except as documented; Denies body ache(s), change in weight or chills Eyes Eyes: Denies acute decrease in peripheral vision, change in vision, double vision or loss of vision ENT ENT ED: Reports none; Denies ear pain, lip swelling, loss taste/smell, neck pain, otalgia or sore throat Cardiovascular Cardiovascular: Reports none; Denies abdominal pain, chest pain with activity, leg edema, lightheadedness, palpitations, rapid heart rate or syncope Respiratory/Chest Respiratory/Chest: Reports none, cough and dyspnea; Denies change in mental status, dry cough, hemoptysis, shortness of breath at rest or shortness of breath with exertion Gastrointestinal Gastrointestinal: Reports none; Denies abdominal pain, change in stool character, diarrhea, hematemesis, hematochezia, melena, rectal bleeding or vomiting Genitourinary Genitourinary ED: Reports none; Denies abdominal discomfort, anuria, dysuria, genital pain or polyuria Musculoskeletal Musculoskeletal: Reports none; Denies arthralgias, back pain, difficulty walking, extremity pain, muscle weakness or myalgias Integumentary Reports none; Denies abscess or rash Neurologic Neurologic: Reports none; Denies abnormal gait, confusion, focal weakness, frequent falls, headache(s), loss of vision, numbness, paresthesias, radicular pain, vertigo or weakness Psychiatric Psychiatric: Reports systems reviewed and no addt'l complaints, except as documented and none; Denies behavioral changes, confusion, difficulty concentrating, hallucinations, suicidal ideation, tactile hallucinations or visual hallucinations Endocrine Endocrinology: Denies none, cold intolerance, excessive sweating, fatigue or heat intolerance Hematologic/Lymphatic Hematologic/Lymphatic: Reports none; Denies anemia, easy bleeding or easy bruising Allergic/Immunologic Allergic/Immunologic ED: Denies as per HPI, none, lip swelling, mouth swelling, throat swelling, tongue swelling or hives EXAM Physical Exam Const Vital Signs: 06/19/21 05:18 06/19/21 05:35 Temperature 98.7 F Temperature Source Temporal Pulse Rate 62 Respiratory Rate 16 Respiratory Effort Normal Respiratory Depth Normal Respiratory Pattern Normal Blood Pressure 173/72 H Blood Pressure Mean 105 Pulse Ox 85 Oxygen Delivery Method Nasal Cannula Nasal Cannula Oxygen Flow Rate (L/min) 3 3 Positive well nourished and well developed General Appearance ED: well developed and NAD HEENT Reports TM's clear and moist mucous membranes normocephalic and atraumatic; Negative for trauma or tenderness Tympanic Membrane ED: Yes TM's clear Eyes PERRL and EOMs intact bilaterally General Eye ED: Negative for pale conjunctiva or scleral icterus Neck no lymphadenopathy, supple and no JVD General: Negative for tenderness Chest Wall inspection of chest normal and palpation of chest normal Chest: Negative for tenderness Resp normal respiratory effort and clear to auscultation bilaterally Effort and Inspection: Negative for respiratory distress or pain with movement Auscultation: Negative for rhonchi, wheezes or diminished lung sounds Cardio regular rate, regular rhythm, S1 normal heart sound, S2 normal heart sound and no murmurs Peripheral Pulses: pulses 2+ throughout GI normal to inspection, nondistended, normoactive bowel sounds, soft to palpation, non-tender, non-distended and no masses Back/Spine no CVA tenderness and no thoracic nor lumbar tenderness Extremity normal to inspection General Extremety ED: Negative for edema General Extremity: Negative for edema Neuro oriented x3, CN's II-XII intact bilaterally, no sensory deficits noted and gait normal Sensorium / Orientation: awake, alert, oriented to person, oriented to place and oriented to time Motor Exam: strength 5/5 throughout and strength abnormal Psych mental status grossly normal Skin no rashes or lesions noted and no wounds MDM MDM MDM Narrative Medical decision making narrative: Patient had IV line established on arrival. Patient was placed on nasal cannula O2. Chest x-ray obtained showed a large right-sided pneumothorax. Discussed case with general surgeon on-call who followed patient in the hospital during last admission. I also spoke with Dr. Ellis the ICU physician. Dr. Dior presented to the emergency department and placed a pigtail catheter in the patient's right chest. Repeat chest x-ray showed expansion of the right lung. Patient was found to have a quite elevated white blood cell count and was started on Levaquin empirically. Patient's lactate also was elevated 2.3. Case discussed with hospitalist will evaluate patient for admission. Lab Data Attestation: I reviewed the patient's lab results. Labs: Laboratory Results - last 24 hr 06/19/21 06/19/21 06/19/21 05:30 05:30 05:30 WBC 25.1 H RBC 4.54 L Hgb 13.3 Hct 41.7 MCV 91.9 MCH 29.3 MCHC 31.9 L RDW Std Deviation 45.8 H RDW Coeff of Makayla 13.6 Plt Count 443 MPV 10.5 Neut % (Auto) Not Reportable Sodium 139 Potassium 4.4 Chloride 107 Carbon Dioxide 29.0 Anion Gap 3 L BUN 31 H Creatinine 1.12 Estim Creat Clear Calc 65.76 Est GFR (MDRD) Af Amer 84 Est GFR (MDRD) Non-Af 70 BUN/Creatinine Ratio 27.7 H Glucose 138 H Lactic Acid Calcium 8.3 L Troponin I High Sens 6 B-Natriuretic Peptide 93.1 06/19/21 05:30 WBC RBC Hgb Hct MCV MCH MCHC RDW Std Deviation RDW Coeff of Makayla Plt Count MPV Neut % (Auto) Sodium Potassium Chloride Carbon Dioxide Anion Gap BUN Creatinine Estim Creat Clear Calc Est GFR (MDRD) Af Amer Est GFR (MDRD) Non-Af BUN/Creatinine Ratio Glucose Lactic Acid 2.3 H* Calcium Troponin I High Sens B-Natriuretic Peptide Radiography Chest X-Ray - ED: 1 View Diagnostic Testing: Clinical Impression(s) from Imaging Studies Chest X-Ray 06/19/21 05:22 IMPRESSION: 1. Large right-sided pneumothorax. 2. 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 N.B. : The above Results were Read Back by Natali Adkins MD to Sin Garsia MD, and understanding confirmed on 06/19/2021 06:01:20 (ET). Electronically Signed: Natali Adkins MD at 6:02 EST , Service support , ADDENDUM: 06/19/21 0609 IMPRESSION: 1. Large right-sided pneumothorax. 2. 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 N.B. : The above Results were Read Back by Natali Adkins MD to Sin Garsia MD, and understanding confirmed on 06/19/2021 06:01:20 (ET). Electronically Signed: Natali Adkins MD at 6:02 EST , Service support , Chest X-Ray 06/19/21 06:29 IMPRESSION: 1. Almost complete reexpansion of the right lung after placement of thoracostomy tube. 2. Mild cardiomegaly and pulmonary vascular congestion. 3. Large right apical pulmonary mass. Electronically Signed: Natali Adkins MD at 6:47 EST , Service support , One view chest x-ray obtained interpreted by myself as right-sided pneumothorax with increased markings right upper lobe. Radiology felt patient had a large right-sided pneumothorax with an apical right-sided mass. EKG Initial EKG: Attestation: I personally reviewed and interpreted this EKG as follows: Comments: Sinus rhythm with a ventricular rate of 58 bpm with old inferior infarct noted. Discharge Plan Triage Chief Complaint: Shortness of Breath ED Provider: Sin Garsia Dx/Rx/DC Orders Clinical Impression: Pneumothorax, Pneumonia, Hypoxia, Leukocytosis Prescriptions: No Action Complete Multivitamin tablet 1 tab PO DAILY RF: 0 amiodarone 200 mg tablet 100 mg PO DAILY Qty: 15 RF: 12 amlodipine 10 mg tablet 5 mg PO BID Qty: 30 RF: 12 apixaban 5 mg tablet 5 mg PO BID Qty: 60 RF: 12 atorvastatin 40 mg tablet 40 mg PO QHS Qty: 30 RF: 11 clopidogrel 75 mg tablet 75 mg PO DAILY Qty: 30 RF: 12 potassium chloride 10 mEq tablet extended release 20 meq PO TID Qty: 90 RF: 12 famotidine 20 MG tablet 20 mg PO QHS RF: 0 baclofen 10 MG tablet 5 mg PO TID RF: 0 lorazepam 0.5 MG tablet 0.5 mg PO BID RF: 0 loratadine 10 MG tablet 10 mg PO DAILY RF: 0 trazodone 50 mg tablet 100 mg PO QHS RF: 0 sildenafil 50 mg tablet 50 mg PO PRN PRN (Reason: Erectile Dysfunction) RF: 0 ezetimibe 10 mg tablet 10 mg PO DAILY RF: 0 fluticasone propionate [Flonase Allergy Relief] 50 mcg/actuation [place],Suspension 2 spray INTRANASAL DAILY RF: 0 escitalopram oxalate 20 mg Tablet 20 mg PO DAILY RF: 0 nystatin 100,000 unit/gram Ointment 1 applic topical BID Qty: 0 RF: 0 menthol-zinc oxide [Calmoseptine] 0.44-20.6 % Ointment 1 applic topical TID PRN (Reason: Diaper Rash) Qty: 0 RF: 0 hydrochlorothiazide 12.5 mg tablet 12.5 mg PO DAILY 30 Days Qty: 30 RF: 0 prednisone 10 mg tablet See Taper mg PO DAILY Qty: 30 RF: 0 albuterol sulfate 90 mcg/actuation HFA aerosol inhaler 2 puff INHALATION Q6H PRN (Reason: shortness of breath or wheezing) Qty: 18 RF: 6 metoprolol tartrate 25 mg tablet 12.5 mg PO BID Qty: 30 RF: 12 Primary Care Provider: Conrad Arroyo Referrals: Conrad Arrooy MD [Primary Care Provider] - Disposition Disposition: [facility] Care [facility]
[2021-06-19 05:41] LABS: Hematocrit 41.7 % (40-54); Hemoglobin 13.3 g/dL (13.0-16.5); Mean Corp Hgb Conc 31.9 g/dL (32-36); Mean Corpuscular Hgb 29.3 pg (27.0-32.0); Mean Corpuscular Volume 91.9 fL (80-94); Mean Platelet Vol. 10.5 fl (6.2-12.0); POSITIVE COUNT YES; POSITIVE DIFFERENTIAL YES; POSITIVE MORPHOLOGY YES; Platelet Count 443 K/mm3 (150-450); RBC Distribution Width CV 13.6 % (11.6-14.6); RBC Distribution Width SD 45.8 fl (35.1-43.9); Red Blood Count 4.54 M/mm3 (4.6-6.2); White Blood Count 25.1 K/mm3 (4.4-11.0)
[2021-06-19] MEDS: 0.9% Normal Saline 1,000 ML 150 ML IV (05:41)
[2021-06-19 06:04] LABS: Anion Gap 3 (5-15); BUN 31 mg/dL (7-18); BUN/Creat Ratio 27.7 RATIO (10-20); Calcium,Total 8.3 mg/dL (8.5-10.1); Chloride 107 mmol/L (98-107); Creatinine, Serum 1.12 mg/dL (0.70-1.30); EST Glomerular Filtration Rate 70 mL/min (>60); Est Glom Filt Rate - Afr Amer 84 mL/min (>60); Estimated Creatinine Clearance 65.76 ml/min; Glucose 138 mg/dL (74-106); Potassium 4.4 mmol/L (3.5-5.1); Sodium Level 139 mmol/L (136-145); Troponin-I HS 6 pg/mL (3.0-78.0)
[2021-06-19 06:13] LABS: Lactic Acid 2.3 mmol/L (0.4-1.9)
--- NOTE | 2021-06-19 06:13 | ED.RN ---
LACTIC OF 2.[address] TRACY[address] VERBALIZES UNDERSTANDING
--- NOTE | 2021-06-19 06:29 | RAD_ITS ---
STUDY: X-RAY CHEST REASON FOR EXAM: Male, 65 years old patient is status post chest tube insertion. TECHNIQUE: Single AP portable view of the chest. COMPARISON: 06/19/2021 time stamped 5:32 AM. FINDINGS: There has been interim insertion of a small caliber thoracostomy tube with the tip of the catheter near the right lung apex. Cardiac monitoring leads are present. The patient is status post sternotomy. The lungs are hyperexpanded. There is mild prominence of bronchovascular markings. There is a small residual right apical pneumothorax. There is right upper lobe pulmonary mass measuring 5 cm in greatest dimension. There is mild cardiac enlargement. Normal mediastinum and ying. There is prominence of the pulmonary hilar arteries with peripheral pulmonary vascular congestion. There is atherosclerotic calcification of the aortic arch with tortuosity. Normal visualized thoracic spine. Normal visualized ribs, clavicles, and shoulders. There is no demonstrated abnormality of the visualized soft tissue structures of the upper abdomen. There is soft tissue emphysema within the anterior right lateral chest wall. RAD/Chest 1 View (Portable) IMPRESSION: 1. Almost complete reexpansion of the right lung after placement of thoracostomy tube. 2. Mild cardiomegaly and pulmonary vascular congestion. 3. Large right apical pulmonary mass. Electronically Signed: Natali Adkins MD at 6:47 EST , Service support ,
[2021-06-19 06:33] LABS: BNP,B-Type NATRIURETIC PEPTIDE 93.1 pg/mL (0-100)
[2021-06-19 06:48] LABS: Differential Indicated MANUAL DIFF
[2021-06-19 07:05] LABS: Absolute Neutrophil Count 20.9 X10^3/uL (2.0-7.7)
[2021-06-19 07:07] LABS: Absolute Lymphocyte Count 1.76 X10^3/uL (0.83-4.51); Eosinophil 1 % (0-5); Lymphocyte 7 % (19-41); Monocyte 4 % (0-10); Myelocyte 3 % (0-0); Neutrophil-Segmented 83 % (47-70); Promyelocyte 2 % (0-0)
[2021-06-19 07:08] LABS: Basophilic Stippling RARE; Platelet Estimate ADEQUATE (ADEQ); Polychromasia RARE; Red Cell Morphology NORM C+C NORMAL (NORM C&C)
[2021-06-19] MEDS: levoFLOXacin IV 750 MG/150 ML BAG 100 MG IV (07:11)
--- NOTE | 2021-06-19 08:08 | CON.PCM.SX_ITS ---
Assessment & Plan Assessment/Plan (1) Pneumothorax: QUALIFIERS: Pneumothorax type: postprocedural Qualified Code(s): J95.811 - Postprocedural pneumothorax PLAN: Patient had a right pneumothorax recur after being discharged home. After discussing the risks of bleeding and infection with the patient's I did proceed with a percutaneous chest tube placement in the emergency room this morning which resolved the pneumothorax. Patient tolerated this well and will be admitted back to the hospitalist service to be treated for his pneumonia and possible mass. Continue suction to NG tube and repeat chest x-ray in the morning. Jesus Dior MD Pager: [facility] [address] [place] [address], [address] [place] [address] Office: HPI Consult Data Date of Consult: 06/19/21 HPI Narrative HPI Narrative: ROBERTA ZEE is a 65 M who presents back to the emergency room with shortness of breath. The patient had a lung biopsy on Saturday which caused a pneumothorax. Chest tube was placed and on repeat x-ray on Saturday the chest tube was dislodged but repeat x-ray 4 hours later showed no pneumothorax. The patient was discharged home and followed up again this evening with shortness of breath. [facility] Medical History Anemia Aphasia as late effect of stroke Atherosclerosis of coronary artery without angina pectoris Carotid artery disease Cerebral arterial aneurysm Chronic atrial fibrillation Confusion Debility Dysphagia HTN (hypertension) Hyperlipidemia Left acute arterial ischemic stroke, MCA (middle cerebral artery) (10/31/16) [facility] current use of amiodarone Lower resp. tract infection Mixed obstructive and restrictive ventilatory defect Respiratory failure Sepsis Smoker Stroke/cerebrovascular accident Home Medications famotidine 20 mg PO QHS 12/21/16 [History Last Taken 03/10/19] baclofen 5 mg PO TID tab 02/05/17 [Rx Last Taken 03/11/19] multivitamin,iv-ifla-stmbogma 1 tab PO DAILY 12/04/18 [History Last Taken 03/11/19] loratadine 10 mg PO DAILY 03/11/19 [History Last Taken 03/11/19] lorazepam 0.5 mg PO BID 03/11/19 [History Last Taken 03/11/19] amiodarone 200 mg tablet 100 mg PO DAILY #15 tab 04/19/20 [Rx Last Taken U nknown] amlodipine 10 mg tablet 5 mg PO BID #30 tab 04/19/20 [Rx Last Taken Unknown] apixaban 5 mg tablet 5 mg PO BID #60 tab 04/19/20 [Rx Last Taken Unknown] atorvastatin 40 mg tablet 40 mg PO QHS #30 tab 04/19/20 [Rx Last Taken Unknown] clopidogrel 75 mg tablet 75 mg PO DAILY #30 tab 04/19/20 [Rx Last Taken Unknown] potassium chloride 10 mEq tablet,extended release 20 meq PO TID #90 tab 04/19/20 [Rx Last Taken Unknown] trazodone 50 mg tablet 100 mg PO QHS tab 04/19/20 [History Last Taken Unknown] albuterol sulfate 90 mcg/actuation aerosol inhaler 2 puff INHALATION Q6H PRN #18 g 01/19/21 [Rx Last Taken Unknown] metoprolol tartrate 25 mg tablet 12.5 mg PO BID #30 tab 04/19/21 [Rx Last Taken Unknown] ezetimibe 10 mg PO DAILY 04/22/21 [History Last Taken Unknown] sildenafil 50 mg PO PRN PRN 04/22/21 [History Last Taken Unknown] fluticasone propionate [Flonase Allergy Relief] 2 spray INTRANASAL DAILY 06/10/21 [History Last Taken Unknown] escitalopram oxalate 20 mg PO DAILY 06/11/21 [History Last Taken Unknown] hydrochlorothiazide 12.5 mg PO DAILY 30 Days #30 tab 06/17/21 [Rx Last Taken Unknown] menthol-zinc oxide [Calmoseptine] 1 applic TOPICAL TID PRN #0 g 06/17/21 [Rx Last Taken Unknown] nystatin 1 applic TOPICAL BID #0 g 06/17/21 [Rx Last Taken Unknown] prednisone See Taper PO DAILY #30 tab 06/17/21 [Rx Last Taken Unknown] Allergy/AdvReac Type Severity Reaction Status Date / Time azithromycin Allergy Intermediate Hives Verified 06/19/21 05:24 [From Zithromax Z-Dayo] lisinopril Allergy Intermediate Hives and Verified 06/19/21 05:24 diarrhea Sulfa (Sulfonamide Allergy Hives Verified 06/19/21 05:24 Antibiotics) Family History Mother Diabetes Father AAA (abdominal aortic aneurysm) Surgical History History of gastrostomy tube placement (11/07/16) History of tracheostomy (11/07/16) 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 Social History household members: spouse Smoking Status: Former smoker how long ago did patient quit smokin years ago, 2ppd second hand exposure: Yes alcohol intake: never substance use type: does not use caffeine: No Physical Exam Const alert General Appearance: cooperative HEENT normocephalic Eyes PERRL Resp Auscultation: diminished lung sounds right Cardio Rate: regular rate GI soft to palpation and non-tender Lab / Micro Data Result Diagrams: 06/19/21 05:30 06/19/21 05:30 Labs: Laboratory Results - last 24 hr 06/19/21 05:30: WBC 25.1 H, RBC 4.54 L, Hgb 13.3, Hct 41.7, MCV 91.9, MCH 29.3, MCHC 31.9 L, RDW Std Deviation 45.8 H, RDW Coeff of Makayla 13.6, Plt Count 443, MPV 10.5, Neut % (Auto) Not Reportable, Absolute Neuts (auto) 20.9 H, Absolute Lymphs (auto) 1.76, Neutrophils % (Manual) 83 H, Lymphocytes % (Manual) 7 L, Monocytes % (Manual) 4, Eosinophils % (Manual) 1, Myelocytes % 3 H, Promyelocytes % 2 H, Diff Path Review May foll, Platelet Estimate ADEQUATE, RBC Morphology NORM C+C, Polychromasia RARE, Basophilic Stippling RARE 06/19/21 05:30: Sodium 139, Potassium 4.4, Chloride 107, Carbon Dioxide 29.0, Anion Gap 3 L, BUN 31 H, Creatinine 1.12, Estim Creat Clear Calc 65.76, Est GFR (MDRD) Af Amer 84, Est GFR (MDRD) Non-Af 70, BUN/Creatinine Ratio 27.7 H, Glucose 138 H, Calcium 8.3 L, Troponin I High Sens 6 06/19/21 05:30: B-Natriuretic Peptide 93.1 06/19/21 05:30: Lactic Acid 2.3 H* Micro: Microbiology 06/19/21 05:42 Nasal Secretion SARS-CoV-2 Antigen (Rapid) - Final Radiology Impression Chest X-Ray 06/19/21 05:22 IMPRESSION: 1. Large right-sided pneumothorax. 2. 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 N.B. : The above Results were Read Back by Natali Adkins MD to Sin Garsia MD, and understanding confirmed on 06/19/2021 06:01:20 (ET). Electronically Signed: Natali Adkins MD at 6:02 EST , Service support , ADDENDUM: 06/19/21 0609 IMPRESSION: 1. Large right-sided pneumothorax. 2. 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 N.B. : The above Results were Read Back by Natali Adkins MD to Sin Garsia MD, and understanding confirmed on 06/19/2021 06:01:20 (ET). Electronically Signed: Natali Adkins MD at 6:02 EST , Service support , Chest X-Ray 06/19/21 06:29 IMPRESSION: 1. Almost complete reexpansion of the right lung after placement of thoracostomy tube. 2. Mild cardiomegaly and pulmonary vascular congestion. 3. Large right apical pulmonary mass. Electronically Signed: Natali Adkins MD at 6:47 EST , Service support ,
--- NOTE | 2021-06-19 08:10 | OP.PCM_ITS ---
Problems Associated Problem List Diagnoses (1) Pneumothorax after biopsy: Report of Operation Date of Procedure: 06/19/21 Pre-Operative Diagnosis: Right recurrent pneumothorax after biopsy Post-Operative Diagnosis: Same Surgery/Procedure Performed:: Percutaneous right chest tube placement Description of Procedure: The patient's right chest was prepped and draped in usual sterile fashion. A small area of skin was injected with local anesthetic and a [place] was made with a scalpel. The percutaneous needle with chest tube was inserted over the rib and into the pleural space until air was able to be aspirated and then the chest tube was advanced over the stylette. The chest tube had a good maurer of air and was connected to suction. There was sutured in place using a 3-0 silk suture and placed to Pleur-evac suction. Repeat chest x- ray will be obtained and the patient tolerated the procedure well.
[2021-06-19 09:37] LABS: Reflex Lactate? Y
[2021-06-19] MEDS: Metoprolol Tartrate 25 MG Tablet 12.5 MG PO ×2 (10:19→22:30)
[2021-06-19] MEDS: LORazepam 0.5 MG Tablet PO ×2 (10:19→22:52)
[2021-06-19] MEDS: predniSONE 10 MG Tablet 40 MG PO (10:22)
[2021-06-19] MEDS: amLODIPine 5 MG Tablet PO ×2 (10:23→22:31)
[2021-06-19] MEDS: Multivitamins,Ther W-Minerals Tablet 1 TABLET PO (10:23)
[2021-06-19] MEDS: Nystatin Ointment 1 APPLIC TOPICAL ×2 (10:23→22:31)
[2021-06-19] MEDS: Ezetimibe 10 MG Tablet PO (10:23)
[2021-06-19] MEDS: hydroCHLOROthiazide 6.25mg TAB 12.5 MG PO (10:23)
[2021-06-19] MEDS: Amiodarone 200 MG Tablet 100 MG PO (10:25)
[2021-06-19] MEDS: Escitalopram Oxalate 20 MG Tablet PO (10:25)
[2021-06-19] MEDS: Fluticasone 0.05% 1 SPRAY NASAL.SRY 2 SPRAY NASAL (10:25)
[2021-06-19] MEDS: Loratadine 10 MG Tablet PO (10:26)
[2021-06-19 10:51] LABS: Lactic Acid 2.2 mmol/L (0.4-1.9)
--- NOTE | 2021-06-19 12:43 | HP.PCM.HOS_ITS ---
Documented by User: Leon TIDWELL 06/19/21 13:19 HPI - General General Date of Admission: 06/19/21 HPI Narrative Patient is a 65-year-old male who presents to the ED at [facility] on 06/19/2021 due to development of a recurrent pneumothorax. Patient was discharged on 06/17/2021 after management of acute hypoxic respiratory failure secondary to pneumonia that was complicated by an iatrogenic pneumothorax which developed after a CT-guided biopsy of a right lower lobe infiltrate. Patient was discharged on Augmentin and was told to follow-up in 1 to 2 weeks for biopsy results with pulmonology. Patient's reports that when patient returned home patient began to become short of breath from a short walk from his chair to the bathroom. Patient's subsequently called Dr. Ellis who directed patient to come to the ED for evaluation. General surgery was consulted and it was determined that patient had a recurrent right pneumo thorax. It was decided that patient should be admitted and chest tube has been placed. Vital signs in the ED are temperature of 97.2 ?F, HR 57, BP of 122/61, RR of 18 and patient was satting 85% on 3 L via nasal cannula. CBC demonstrates a leukocytosis of 25,000 with a hemoglobin of 13 and platelets of 4-43,000. BMP is unremarkable. Lactate is elevated at 2.3. Initial chest x-ray on admission demonstrated large right-sided pneumothorax with right apical pulmonary mass. Repeat chest x-ray after chest tube placement demonstrates reexpansion of the right lung, mild cardiomegaly with pulmonary vascular congestion. Rapid Covid is negative and blood cultures are pending. 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 tract infection Mixed obstructive and restrictive ventilatory defect Respiratory failure Sepsis Smoker Stroke/cerebrovascular accident Home Medications famotidine 20 mg PO QHS 12/21/16 [History Last Taken 03/10/19] baclofen 5 mg PO TID tab 02/05/17 [Rx Last Taken 03/11/19] multivitamin,pu-rhpx-vehuggsu 1 tab PO DAILY 12/04/18 [History Last Taken 03/11/19] loratadine 10 mg PO DAILY 03/11/19 [History Last Taken 03/11/19] lorazepam 0.5 mg PO BID 03/11/19 [History Last Taken 03/11/19] amiodarone 200 mg tablet 100 mg PO DAILY #15 tab 04/19/20 [Rx Last Taken Unknown] amlodipine 10 mg tablet 5 mg PO BID #30 tab 04/19/20 [Rx Last Taken Unknown] apixaban 5 mg tablet 5 mg PO BID #60 tab 04/19/20 [Rx Last Taken Unknown] atorvastatin 40 mg tablet 40 mg PO QHS #30 tab 04/19/20 [Rx Last Taken Unknown] clopidogrel 75 mg tablet 75 mg PO DAILY #30 tab 04/19/20 [Rx Last Taken Unknown] potassium chloride 10 mEq tablet,extended release 20 meq PO TID #90 tab 04/19/20 [Rx Last Taken Unknown] trazodone 50 mg tablet 100 mg PO QHS tab 04/19/20 [History Last Taken Unknown] albuterol sulfate 90 mcg/actuation aerosol inhaler 2 puff INHALATION Q6H PRN #18 g 01/19/21 [Rx Last Taken Unknown] metoprolol tartrate 25 mg tablet 12.5 mg PO BID #30 tab 04/19/21 [Rx Last Taken Unknown] ezetimibe 10 mg PO DAILY 04/22/21 [History Last Taken Unknown] sildenafil 50 mg PO PRN PRN 04/22/21 [History Last Taken Unknown] fluticasone propionate [Flonase Allergy Relief] 2 spray INTRANASAL DAILY 01/23 [History Last Taken Unknown] escitalopram oxalate 20 mg PO DAILY 06/11/21 [History Last Taken Unknown] hydrochlorothiazide 12.5 mg PO DAILY 30 Days #30 tab 06/17/21 [Rx Last Taken Unknown] menthol-zinc oxide [Calmoseptine] 1 applic TOPICAL TID PRN #0 g 06/17/21 [Rx Last Taken Unknown] nystatin 1 applic TOPICAL BID #0 g 06/17/21 [Rx Last Taken Unknown] prednisone See Taper PO DAILY #30 tab 06/17/21 [Rx Last Taken Unknown] Allergy/AdvReac Type Severity Reaction Status Date / Time azithromycin Allergy Intermediate Hives Verified 06/19/21 05:24 [From Zithromax Z-Dayo] lisinopril Allergy Intermediate Hives and Verified 06/19/21 05:24 diarrhea Sulfa (Sulfonamide Allergy Hives Verified 06/19/21 05:24 Antibiotics) Family History Mother Diabetes Heart disease Father AAA (abdominal aortic aneurysm) Heart disease Surgical History History of gastrostomy tube placement (11/07/16) History of tracheostomy (11/07/16) 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 Review of Systems ROS Unobtainable: due to mental condition Vital Signs Vital Signs Vital Signs: 06/19/21 05:18 06/19/21 05:35 06/19/21 07:07 Temperature 98.7 F 97.2 F L Temperature Source Temporal Oral Pulse Rate 62 57 L Pulse Strength Respiratory Rate 16 18 Respiratory Effort Normal Respiratory Depth Normal Respiratory Pattern Normal Blood Pressure 173/72 H 122/61 H Blood Pressure Mean 105 81 Blood Pressure Source Blood Pressure Position Blood Pressure Location Pulse Ox 85 95 Oxygen Delivery Method Nasal Cannula Nasal Cannula Nasal Cannula Oxygen Flow Rate (L/min) 3 3 06/19/21 08:04 06/19/21 08:10 06/19/21 10:00 Temperature 98.5 F Temperature Source Oral Pulse Rate 57 L 56 L Pulse Strength Normal (2+) Respiratory Rate 16 18 Respiratory Effort Normal Non-Labored Respiratory Depth Normal Respiratory Pattern Normal Blood Pressure 131/69 H Blood Pressure Mean 89 Blood Pressure Source Monitor Blood Pressure Position Semi-Fowlers Blood Pressure Location Left Arm Pulse Ox 96 Oxygen Delivery Method Nasal Cannula Room Air Oxygen Flow Rate (L/min) 4 06/19/21 10:19 Temperature Temperature Source Pulse Rate 56 L Pulse Strength Respiratory Rate Respiratory Effort Respiratory Depth Respiratory Pattern Blood Pressure 131/69 H Blood Pressure Mean Blood Pressure Source Blood Pressure Position Blood Pressure Location Pulse Ox Oxygen Delivery Method Oxygen Flow Rate (L/min) Weight Weight: 197 lb 8.547 oz Body Mass Index (BMI) 29.1 Physical Exam Const alert, no apparent distress and well nourished HEENT normocephalic, head/scalp atraumatic and hearing grossly normal bilaterally Eyes PERRL, EOMs intact bilaterally and conjunctivae normal Neck no lymphadenopathy, supple and no JVD Resp normal respiratory effort, no retractions, no use of accessory muscles and clear to auscultation bilaterally Cardio regular rate, regular rhythm, no murmurs and no JVD GI normal to inspection, nondistended, normoactive bowel sounds, soft to palpation and non-tender Extremity normal to inspection, full ROM and no clubbing, cyanosis or edema Peripheral Pulses: Yes pulses 2+ throughout Skin no rashes or lesions noted, no wounds, skin turgor normal and no jaundice Neuro CN's II-XII intact bilaterally Psych affect normal Results Lab / Micro Data Result Diagrams: 06/20/21 06:40 06/20/21 06:40 Labs: Laboratory Results - last 24 hr 06/19/21 05:30: WBC 25.1 H, RBC 4.54 L, Hgb 13.3, Hct 41.7, MCV 91.9, MCH 29.3, MCHC 31.9 L, RDW Std Deviation 45.8 H, RDW Coeff of Makayla 13.6, Plt Count 443, MPV 10.5, Neut % (Auto) Not Reportable, Absolute Neuts (auto) 20.9 H, Absolute Lymphs (auto) 1.76, Neutrophils % (Manual) 83 H, Lymphocytes % (Manual) 7 L, Monocytes % (Manual) 4, Eosinophils % (Manual) 1, Myelocytes % 3 H, Promyelocytes % 2 H, Diff Path Review May foll, Platelet Estimate ADEQUATE, RBC Morphology NORM C+C, Polychromasia RARE, Basophilic Stippling RARE 06/19/21 05:30: Sodium 139, Potassium 4.4, Chloride 107, Carbon Dioxide 29.0, Anion Gap 3 L, BUN 31 H, Creatinine 1.12, Estim Creat Clear Calc 65.76, Est GFR (MDRD) Af Amer 84, Est GFR (MDRD) Non-Af 70, BUN/Creatinine Ratio 27.7 H, Glucose 138 H, Calcium 8.3 L, Troponin I High Sens 6 06/19/21 05:30: B-Natriuretic Peptide 93.1 06/19/21 05:30: Lactic Acid 2.3 H* 06/19/21 10:00: Lactic Acid 2.2 H* Micro: Microbiology 06/19/21 05:42 Nasal Secretion SARS-CoV-2 Antigen (Rapid) - Final Radiology Impression Chest X-Ray 06/19/21 05:22 IMPRESSION: 1. Large right-sided pneumothorax. 2. 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 N.B. : The above Results were Read Back by Natali Adkins MD to Sin Garsia MD, and understanding confirmed on 06/19/2021 06:01:20 (ET). Electronically Signed: Natali Adkins MD at 6:02 EST , Service support , ADDENDUM: 06/19/21 0609 IMPRESSION: 1. Large right-sided pneumothorax. 2. 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 N.B. : The above Results were Read Back by Natali Adkins MD to Sin Garsia MD, and understanding confirmed on 06/19/2021 06:01:20 (ET). Electronically Signed: Natali Adkins MD at 6:02 EST , Service support , Chest X-Ray 06/19/21 06:29 IMPRESSION: 1. Almost complete reexpansion of the right lung after placement of thoracostomy tube. 2. Mild cardiomegaly and pulmonary vascular congestion. 3. Large right apical pulmonary mass. Electronically Signed: Natali Adkins MD at 6:47 EST , Service support , Assessment & Plan Assessment/Plan (1) Recurrent pneumothorax after chest tube removed: PLAN: Patient is a 65-year-old male who presented to the ED on 06/19/2021 with a chief complaint of shortness of breath. Patient will be admitted for management of recurrent pneumothorax. 1) Acute hypoxia secondary to reccurent pneumothorax s/p chest tube removal. Patient presented to the ED with shortness of breath 2 days after being discharged for pneumonia which was complicated by pneumothorax which occurred after CT-guided biopsy of a right-sided lung lesion. On admission patient's oxygen saturation was 85% on 3 L via nasal cannula, although patient's respiratory rate was not elevated. Patient's lactic acid was 2.3 on admission. General surgery consulted chest tube placed, x-ray after chest tube placement shows resolution of right-sided pneumothorax. Plan; admit to [facility] for monitoring, serial chest x-rays ordered in a.m., general surgery consult ordered, continue home breathing treatments, as needed breathing treatments ordered. 2) leukocytosis White count is currently 25,000. Unclear etiology, could be the result of ongoing pneumonia although after chest tube was placed respiratory symptoms have resolved. Patient was also discharged on on prednisone taper after last admission. Plan; levofloxacin ordered, continue to trend CBC, as above, continue prednisone taper. 3) right upper lobe lung mass Seen on chest CTA during last admission, mass was appropriately biopsied. Patient is to follow-up with Dr. Mcgrath in 1 to 2 weeks for biopsy results. 4) history of CVA with aphasia Patient understands when spoken to, however verbal communication is limited in response. Questions in regards to health care should be brought up to patient's . Hold aspirin, Plavix and Eliquis regimen. 5) atrial fibrillation Patient is rate controlled on amiodarone and metoprolol. Patient is also anticoagulated on Eliquis. Continue rate controlling medications, hold Eliquis as above. 6) HTN Stable, continue amlodipine, metoprolol and hydrochlorothiazide. DVT prophylaxis - not indicated CODE STATUS: DNRCC-A, with intubation Advance care planning: Patient's is patient's healthcare power of workers compensation attorney and medical decision should be made through . Vaccination status: Patient and patient's have been fully vaccinated against COVID-19. Patient seen by Leon Amanda PA-C, under the supervision of Dr. Centeno. Documented by User: Dr. 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 tract infection Mixed obstructive and restrictive ventilatory defect Respiratory failure Sepsis Smoker Stroke/cerebrovascular accident Home Medications famotidine 20 mg PO QHS 12/21/16 [History Last Taken 03/10/19] baclofen 5 mg PO TID tab 02/05/17 [Rx Last Taken 03/11/19] multivitamin,[id number]-[id number] 1 tab PO DAILY 12/04/18 [History Last Taken 03/11/19] loratadine 10 mg PO DAILY 03/11/19 [History Last Taken 03/11/19] lorazepam 0.5 mg PO BID 03/11/19 [History Last Taken 03/11/19] amiodarone 200 mg tablet 100 mg PO DAILY #15 tab 04/19/20 [Rx Last Taken Unkno wn] amlodipine 10 mg tablet 5 mg PO BID #30 tab 04/19/20 [Rx Last Taken Unknown] apixaban 5 mg tablet 5 mg PO BID #60 tab 04/19/20 [Rx Last Taken Unknown] atorvastatin 40 mg tablet 40 mg PO QHS #30 tab 04/19/20 [Rx Last Taken Unknown] clopidogrel 75 mg tablet 75 mg PO DAILY #30 tab 04/19/20 [Rx Last Taken Unknown] potassium chloride 10 mEq tablet,extended release 20 meq PO TID #90 tab 04/19/20 [Rx Last Taken Unknown] trazodone 50 mg tablet 100 mg PO QHS tab 04/19/20 [History Last Taken Unknown] albuterol sulfate 90 mcg/actuation aerosol inhaler 2 puff INHALATION Q6H PRN #18 g 01/19/21 [Rx Last Taken Unknown] metoprolol tartrate 25 mg tablet 12.5 mg PO BID #30 tab 04/19/21 [Rx Last Taken Unknown] ezetimibe 10 mg PO DAILY 04/22/21 [History Last Taken Unknown] sildenafil 50 mg PO PRN PRN 04/22/21 [History Last Taken Unknown] fluticasone propionate [Flonase Allergy Relief] 2 spray INTRANASAL DAILY 06/10/21 [History Last Taken Unknown] escitalopram oxalate 20 mg PO DAILY 06/11/21 [History Last Taken Unknown] hydrochlorothiazide 12.5 mg PO DAILY 30 Days #30 tab 06/17/21 [Rx Last Taken Unk nown] menthol-zinc oxide [Calmoseptine] 1 applic TOPICAL TID PRN #0 g 06/17/21 [Rx Last Taken Unknown] nystatin 1 applic TOPICAL BID #0 g 06/17/21 [Rx Last Taken Unknown] prednisone See Taper PO DAILY #30 tab 06/17/21 [Rx Last Taken Unknown] Allergy/AdvReac Type Severity Reaction Status Date / Time azithromycin Allergy Intermediate Hives Verified 06/19/21 05:24 [From Zithromax Z-Dayo] lisinopril Allergy Intermediate Hives and Verified 06/19/21 05:24 diarrhea Sulfa (Sulfonamide Allergy Hives Verified 06/19/21 05:24 Antibiotics) Family History Mother Diabetes Heart disease Father AAA (abdominal aortic aneurysm) Heart disease Surgical History History of gastrostomy tube placement (11/07/16) History of tracheostomy (11/07/16) 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 Niño: I personally reviewed the chart and examined the patient, and agree with the above findings. 65-year-old male presented from home with shortness of breath and increasing oxygen requirements. He was recently admitted to the hospital and had a lung biopsy for right lung mass. He had a small pneumothorax that on the time of discharge had not changed so he was discharged home. Readmission to the hospital he was found to have pneumothorax that had grown on the right therefore chest tube was placed. Pathology results are pending. Surgery was consulted and a chest tube was placed with resolution of the pneumothorax. Delete that he is f eeling well and currently just awaiting pathology results. Visit Charges Inpatient E&M: 01842 Init Hosp L3
[2021-06-19 13:13] LABS: Pathologist Review Reviewed
[2021-06-19] MEDS: Baclofen 10 MG Tablet 5 MG PO ×2 (14:14→22:29)
[2021-06-19] MEDS: Atorvastatin Calcium 40 MG Tablet PO (22:29)
[2021-06-19] MEDS: traZODone 100 MG Tablet PO (22:30)
[2021-06-19] MEDS: Famotidine 20 MG Tablet PO (22:31)
[2021-06-20] VITALS (9 sets, daily range): BP systolic 122–148; BP diastolic 55–63; PULSE 43–60; RESP 16–18; TEMP 36.4–37; O2SAT 95–96
--- NOTE | 2021-06-20 05:55 | RAD_ITS ---
STUDY: X-RAY CHEST REASON FOR EXAM: Male, 65 years old. Right pneumothorax TECHNIQUE: Single AP portable view of the chest. COMPARISON: Comparison is made with prior examination dated 06/19/2021. FINDINGS: A small caliber right-sided chest tube is seen with the tip in the upper lateral portion of the right hemithorax. There is no evidence of pneumothorax. Stable 5.9 cm x 5.4 cm mass in the right lung apex. RAD/Chest 1 View (Portable) IMPRESSION: The tip of the small caliber right-sided chest tube is seen in the upper lateral aspect of the right hemithorax. There is no evidence of pneumothorax at this time. Electronically Signed: Peter Soto MD at 9:01 EST , Service support ,
[2021-06-20] MEDS: levoFLOXacin IV 750 MG/150 ML BAG 100 MG IV (06:23)
[2021-06-20] MEDS: Baclofen 10 MG Tablet 5 MG PO ×3 (06:23→22:18)
[2021-06-20 07:06] LABS: Hemoglobin 12.2 g/dL (13.0-16.5); Mean Corp Hgb Conc 31.3 g/dL (32-36); Mean Corpuscular Volume 92.9 fL (80-94); Mean Platelet Vol. 10.6 fl (6.2-12.0); POSITIVE COUNT YES; POSITIVE DIFFERENTIAL YES; POSITIVE MORPHOLOGY YES; Platelet Count 362 K/mm3 (150-450); RBC Distribution Width CV 13.4 % (11.6-14.6); RBC Distribution Width SD 45.1 fl (35.1-43.9)
[2021-06-20 07:10] LABS: Differential Indicated MANUAL DIFF
[2021-06-20 07:32] LABS: Anion Gap 3 (5-15); BUN 24 mg/dL (7-18); BUN/Creat Ratio 30.7 RATIO (10-20); Calcium,Total 8.4 mg/dL (8.5-10.1); Chloride 105 mmol/L (98-107); Creatinine, Serum 0.78 mg/dL (0.70-1.30); EST Glomerular Filtration Rate 106 mL/min (>60); Est Glom Filt Rate - Afr Amer 128 mL/min (>60); Estimated Creatinine Clearance 94.42 ml/min; Glucose 83 mg/dL (74-106); Potassium 4.2 mmol/L (3.5-5.1); Sodium Level 139 mmol/L (136-145)
[2021-06-20 07:48] LABS: Eosinophil 1 % (0-5); Lymphocyte 16 % (19-41); Metamyelocyte 5 % (0-1); Monocyte 6 % (0-10); Neutrophil-Band 1 % (0-5); Neutrophil-Segmented 71 % (47-70); Platelet Estimate ADEQUATE (ADEQ); Total Cells Counted 100 (MANUAL DIFF)
[2021-06-20 07:49] LABS: Absolute Neutrophil Count 13.7 X10^3/uL (2.0-7.7); Neutrophil # 13.69 X10^3/uL (2.7-7.7); Red Cell Morphology NORM C+C NORMAL (NORM C&C)
[2021-06-20 07:50] LABS: Absolute Lymphocyte Count 3.04 X10^3/uL (0.83-4.51); Lymphocyte # 3.04 X10^3/ul (0.83-4.51)
[2021-06-20] MEDS: predniSONE 10 MG Tablet 40 MG PO (08:31)
[2021-06-20] MEDS: Multivitamins,Ther W-Minerals Tablet 1 TABLET PO (08:32)
[2021-06-20] MEDS: LORazepam 0.5 MG Tablet PO ×2 (10:26→22:20)
[2021-06-20] MEDS: Loratadine 10 MG Tablet PO (10:27)
[2021-06-20] MEDS: Fluticasone 0.05% 1 SPRAY NASAL.SRY 2 SPRAY NASAL (10:27)
[2021-06-20] MEDS: hydroCHLOROthiazide 6.25mg TAB 12.5 MG PO (10:27)
[2021-06-20] MEDS: Escitalopram Oxalate 20 MG Tablet PO (10:28)
[2021-06-20] MEDS: Ezetimibe 10 MG Tablet PO (10:28)
[2021-06-20] MEDS: Nystatin Ointment 1 APPLIC TOPICAL ×2 (10:29→22:17)
[2021-06-20] MEDS: amLODIPine 5 MG Tablet PO ×2 (10:29→22:18)
--- NOTE | 2021-06-20 11:50 | CASEMGMT ---
RN ABRAHAM Readmission Note Previous Admission: 06/10/2021-06/17/2021 Diagnosis: PNA DC Disposition: Home with [facility] Current Admission Presentation: Pt pulse ox 86% on 3L O2. Pt presented to ER from home with low pulse ox. Pt had been in hospital for pna, lung biopsy done with subsequent pneumothorax. Percutaneous drainage of R pneumo completed. Pt dc'd on increased O2 use from baseline of 3L continuous. Pt also set up for SN, PT, OT and ST through [facility]. Pt now with CT placement, IV atb. RN ABRAHAM to follow for pt needs upon dc. RN ABRAHAM in to pt room, spoke with pt and . Prior dc plan still is what is being requested. DC PLAN: Home with [facility]- SN, PT, OT and ST. TC fariba Bradley at [facility], left message on updated status of pt. They had not began care.
--- NOTE | 2021-06-20 12:12 | PN.SURG_ITS ---
Subjective Subjective No changes overnight Objective Data Objective Data Vital Signs: Vital Signs Temp Pulse Resp BP Pulse Ox 97.6 F L 48 L 16 122/55 H 96 06/20/21 10:00 06/20/21 10:28 06/20/21 10:00 06/20/21 10:00 06/20/21 10:00 Oxygen Flow Rate (L/min) 2 Oxygen Delivery Method Nasal Cannula Weight: 197 lb 8.547 oz Body Mass Index (BMI) 29.1 Intake & Output: Intake and Output for Last 24 Hours 06/18/21 06/19/21 06/20/21 23:59 23:59 23:59 Intake Total 2930 / 3030 1100 / 1100 Output Total 1200 / 1750 1400 / 1400 Balance 1730 / 1280 -300 / -300 Lab / Micro Data Result Diagrams: 06/20/21 06:40 06/20/21 06:40 Labs: Laboratory Results - last 24 hr 06/19/21 05:30: Diff Path Review Reviewed 06/20/21 06:40: WBC 19.0 H, RBC 4.20 L, Hgb 12.2 L, Hct 39.0 L, MCV 92.9, MCH 29.0, MCHC 31.3 L, RDW Std Deviation 45.1 H, RDW Coeff of Makayla 13.4, Plt Count 362, MPV 10.6, Neut % (Auto) Not Reportable, Absolute Neuts (auto) 13.7 H, Absolute Lymphs (auto) 3.04, Total Counted 100, Neutrophils % (Manual) 71 H, Band Neutrophils % 1, Lymphocytes % (Manual) 16 L, Monocytes % (Manual) 6, Eosinophils % (Manual) 1, Metamyelocytes % 5 H, Diff Path Review May , Platelet Estimate ADEQUATE, RBC Morphology NORM C+C 06/20/21 06:40: Sodium 139, Potassium 4.2, Chloride 105, Carbon Dioxide 31.0, Anion Gap 3 L, BUN 24 H, Creatinine 0.78, Estim Creat Clear Calc 94.42, Est GFR (MDRD) Af Amer 128, Est GFR (MDRD) Non-Af 106, BUN/Creatinine Ratio 30.7 H, Glucose 83, Calcium 8.4 L Micro: Microbiology 06/19/21 05:42 Nasal Secretion SARS-CoV-2 Antigen (Rapid) - Final Radiography Diagnostic Testing: Radiology Impression Chest X-Ray 06/20/21 05:55 IMPRESSION: The tip of the small caliber right-sided chest tube is seen in the upper lateral aspect of the right hemithorax. There is no evidence of pneumothorax at this time. Electronically Signed: Peter Soto MD at 9:01 EST , Service support , Physical Exam Const no apparent distress Resp normal respiratory effort Cardio regular rate GI soft to palpation Assessment & Plan Assessment/Plan (1) Recurrent pneumothorax after chest tube removed: PLAN: Patient did not have any issues overnight. He does not seem to have an air leak. I will put him to [facility] and repeat x-ray in 4 hours. If the x-ray in 4 hours is normal with no pneumothorax I will repeat again in the morning and if that one is normal remove the chest tube. Jesus Dior MD Pager: [facility] [address] [place] [address], [address] [place] [address] Office:
--- NOTE | 2021-06-20 13:22 | PN.HOSP_ITS ---
Documented by User: Leon TIDWELL 06/20/21 13:31 Subjective Subjective Patient is a 65-year-old male comfortably resting in bed, alert and oriented to self. Patient mentation is difficult to assess as he is nonverbal from prior CVA. Patient does appear to comprehend what is going on around him into what is told and reacts appropriately. Does not appear in acute distress. Objective Data Objective Data Vital Signs: Vital Signs Temp Pulse Resp BP Pulse Ox 97.6 F L 48 L 16 122/55 H 96 06/20/21 10:00 06/20/21 10:28 06/20/21 10:00 06/20/21 10:00 06/20/21 10:00 Oxygen Flow Rate (L/min) 2 Oxygen Delivery Method Nasal Cannula Weight: 197 lb 8.547 oz Body Mass Index (BMI) 29.1 Intake & Output: Intake and Output for Last 24 Hours 06/18/21 06/19/21 06/20/21 23:59 23:59 23:59 Intake Total 2930 / 3030 1100 / 1100 Output Total 1200 / 1750 1400 / 1400 Balance 1730 / 1280 -300 / -300 Lab / Micro Data Result Diagrams: 06/20/21 06:40 06/20/21 06:40 Labs: Laboratory Results - last 24 hr 06/20/21 06:40: WBC 19.0 H, RBC 4.20 L, Hgb 12.2 L, Hct 39.0 L, MCV 92.9, MCH 29.0, MCHC 31.3 L, RDW Std Deviation 45.1 H, RDW Coeff of Makayla 13.4, Plt Count 362, MPV 10.6, Neut % (Auto) Not Reportable, Absolute Neuts (auto) 13.7 H, Absolute Lymphs (auto) 3.04, Total Counted 100, Neutrophils % (Manual) 71 H, Band Neutrophils % 1, Lymphocytes % (Manual) 16 L, Monocytes % (Manual) 6, Eosinophils % (Manual) 1, Metamyelocytes % 5 H, Diff Path Review May foll, Platelet Estimate ADEQUATE, RBC Morphology NORM C+C 06/20/21 06:40: Sodium 139, Potassium 4.2, Chloride 105, Carbon Dioxide 31.0, Anion Gap 3 L, BUN 24 H, Creatinine 0.78, Estim Creat Clear Calc 94.42, Est GFR (MDRD) Af Amer 128, Est GFR (MDRD) Non-Af 106, BUN/Creatinine Ratio 30.7 H, Glucose 83, Calcium 8.4 L Micro: Microbiology 06/19/21 05:42 Nasal Secretion SARS-CoV-2 Antigen (Rapid) - Final Radiography Diagnostic Testing: Radiology Impression Chest X-Ray 06/20/21 05:55 IMPRESSION: The tip of the small caliber right-sided chest tube is seen in the upper lateral aspect of the right hemithorax. There is no evidence of pneumothorax at this time. Electronically Signed: Peter Soto MD at 9:01 EST , Service support , Physical Exam Const alert, no apparent distress and healthy appearing HEENT head/scalp atraumatic and moist oral mucous membranes Head and Scalp: normocephalic Eyes PERRL, EOMs intact bilaterally and conjunctivae normal Neck no lymphadenopathy, supple and no JVD Resp normal respiratory effort, no retractions, no use of accessory muscles and clear to auscultation bilaterally Cardio regular rate, regular rhythm, no murmurs and no JVD GI normal to inspection, nondistended, normoactive bowel sounds, soft to palpation and non-tender Extremity normal to inspection, full ROM and no clubbing, cyanosis or edema Peripheral Pulses: Yes pulses 2+ throughout Skin no rashes or lesions noted, no wounds, skin turgor normal and no jaundice Neuro CN's II-XII intact bilaterally Psych affect normal Assessment & Plan Assessment/Plan (1) Recurrent pneumothorax after chest tube removed: PLAN: Day 1 Discharge planning: Current plan is for patient to discharge home. 1) Acute hypoxia secondary to reccurent pneumothorax s/p chest tube removal. Patient still requiring oxygen and is currently satting at 92% on 2 L via nasal cannula. Patient's course has been stable overnight and he had no issues. Patient to be advanced to [facility] per Dr. Connell left. Patient to have serial x-rays and if no pneumothorax develops patient will have chest tube removed and possibly discharge tomorrow 06/21/21. 2) leukocytosis White count is currently 19,000, down from admission. Unclear etiology, could be the result of ongoing pneumonia although after chest tube was placed respiratory symptoms have resolved. Patient was also discharged on on prednisone taper after last admission. Plan; levofloxacin ordered, continue to trend CBC, as above, continue prednisone taper, blood cultures pending. 3) right upper lobe lung mass Seen on chest CTA during last admission, mass was appropriately biopsied. Patient is to follow-up with Dr. Mcgrath in 1 to 2 weeks for biopsy results. 4) history of CVA with aphasia Patient understands when spoken to, however verbal communication is limited in response. Questions in regards to health care should be brought up to patient's . Hold aspirin, Plavix and Eliquis regimen. 5) atrial fibrillation Patient is rate controlled on amiodarone and metoprolol. Patient is also anticoagulated on Eliquis. Continue rate controlling medications, hold Eliquis as above. 6) HTN Stable, continue amlodipine, metoprolol and hydrochlorothiazide. DVT prophylaxis - SCDs Patient seen by Leon Amanda PA-C, under the supervision of Dr. Niño. Documented by User: Dr. Enrrique Niño MD 06/20/21 17:42 Objective Data Lab / Micro Data Result Diagrams: 06/20/21 06:40 06/20/21 06:40 Charges/Coding Addendum Addendum: Dr. Niño: I personally reviewed the chart and examined the patient, and agree with the above findings. 65-year-old male presented from home with shortness of breath and increasing oxygen requirements. He was recently admitted to the hospital and had a lung biopsy for right lung mass. He had a small pneumothorax that on the time of discharge had not changed so he was discharged home. Readmission to the hospital he was found to have pneumothorax that had grown on the right therefore chest tube was placed. Pathology results are pending. Surgery was consulted and a chest tube was placed with resolution of the pneumothorax. Delete that he is feeling well and currently just awaiting pathology results. 06/20/2021: Doing well, no issues overnight. We were able to put his chest tube to waterseal today. Will recheck chest x-ray in the afternoon if that is unremarkable then can obtain a chest x-ray in the morning and potentially remove the chest tube. Biopsy has come back and is negative for malignancy. Visit Charges Inpatient E&M: 74944 Subs Hosp L2
--- NOTE | 2021-06-20 15:05 | RAD_ITS ---
STUDY: X-RAY CHEST REASON FOR EXAM: Male, 65 years old. ptx TECHNIQUE: Single AP portable view of the chest. COMPARISON: Comparison is made with prior dissemination than earlier today. FINDINGS: A small caliber chest tube is seen along the lateral superior aspect of the right hemithorax. Mild degree of subcutaneous emphysema overlying the right lateral chest wall. There is no evidence of pneumothorax. Stable soft tissue mass in the right lung apex. RAD/Chest 1 View (Portable) IMPRESSION: No evidence of pneumothorax. Electronically Signed: Peter Soto MD at 15:18 EST , Service support ,
[2021-06-20] MEDS: traZODone 100 MG Tablet PO (22:17)
[2021-06-20] MEDS: Atorvastatin Calcium 40 MG Tablet PO (22:17)
[2021-06-20] MEDS: Famotidine 20 MG Tablet PO (22:17)
[2021-06-21 02:47] VITALS: BP 140/55; PULSE 52; RESP 18; TEMP 36.6; O2SAT 95
--- NOTE | 2021-06-21 05:55 | RAD_ITS ---
STUDY: X-RAY CHEST REASON FOR EXAM: Male, 65 years old. Right pneumothorax TECHNIQUE: Single AP portable view of the chest. COMPARISON: Comparison is made with prior study 06/20/2021. FINDINGS: A small caliber chest tube is seen with the tip in the lateral superior aspect of the right hemithorax. There is no evidence of pneumothorax. Stable nodular density in the right medial lung apex. Sternal cerclage wires and vascular clips are present from a prior sternotomy and coronary artery bypass graft procedure (CABG). Normal mediastinum and ying. Normal visualized pulmonary arteries. There is atherosclerotic calcification of the aortic arch with tortuosity. There are diffuse degenerative changes of the visualized thoracic spine. Normal visualized ribs, clavicles, and shoulders. There is no demonstrated abnormality of the visualized soft tissue structures of the upper abdomen. RAD/Chest 1 View (Portable) IMPRESSION: No evidence of right-sided pneumothorax. Electronically Signed: Peter Soto MD at 15:00 EST , Service support ,
[2021-06-21] MEDS: Baclofen 10 MG Tablet 5 MG PO ×2 (06:17→14:45)
[2021-06-21] MEDS: levoFLOXacin IV 750 MG/150 ML BAG 100 MG IV (06:17)
[2021-06-21] MEDS: 0.9% Saline Lock 10 ML Syringe IV (06:18)
[2021-06-21 06:49] LABS: Hematocrit 39.4 % (40-54); Hemoglobin 12.8 g/dL (13.0-16.5); Mean Corp Hgb Conc 32.5 g/dL (32-36); Mean Corpuscular Hgb 29.3 pg (27.0-32.0); Mean Corpuscular Volume 90.2 fL (80-94); Mean Platelet Vol. 10.6 fl (6.2-12.0); POSITIVE COUNT YES; POSITIVE MORPHOLOGY YES; Platelet Count 357 K/mm3 (150-450); RBC Distribution Width CV 13.3 % (11.6-14.6); RBC Distribution Width SD 43.4 fl (35.1-43.9); Red Blood Count 4.37 M/mm3 (4.6-6.2); White Blood Count 20.7 K/mm3 (4.4-11.0)
[2021-06-21 07:00] LABS: Differential Indicated MANUAL DIFF
[2021-06-21] MEDS: predniSONE 10 MG Tablet 40 MG PO (07:56)
[2021-06-21] MEDS: Multivitamins,Ther W-Minerals Tablet 1 TABLET PO (07:57)
[2021-06-21] MEDS: Amiodarone 200 MG Tablet 100 MG PO (07:57)
[2021-06-21] MEDS: Nystatin Ointment 1 APPLIC TOPICAL (07:58)
[2021-06-21] MEDS: Fluticasone 0.05% 1 SPRAY NASAL.SRY 2 SPRAY NASAL (07:58)
[2021-06-21] MEDS: Ezetimibe 10 MG Tablet PO (07:58)
[2021-06-21] MEDS: amLODIPine 5 MG Tablet PO (07:58)
[2021-06-21] MEDS: hydroCHLOROthiazide 6.25mg TAB 12.5 MG PO (07:59)
[2021-06-21] MEDS: Escitalopram Oxalate 20 MG Tablet PO (07:59)
[2021-06-21] MEDS: Loratadine 10 MG Tablet PO (08:00)
[2021-06-21 08:03] VITALS: PULSE 49
[2021-06-21] MEDS: LORazepam 0.5 MG Tablet PO (08:07)
[2021-06-21 08:09] VITALS: O2SAT 95
[2021-06-21 08:50] VITALS: BP 135/68; PULSE 49; RESP 16; TEMP 36.7; O2SAT 99
[2021-06-21 09:33] LABS: Lymphocyte 4 % (19-41); Metamyelocyte 1 % (0-1); Monocyte 6 % (0-10); Myelocyte 4 % (0-0); Neutrophil-Band 1 % (0-5); Neutrophil-Segmented 84 % (47-70); Platelet Estimate ADEQUATE (ADEQ); Red Cell Morphology NORM C+C NORMAL (NORM C&C); Total Cells Counted 100 (MANUAL DIFF)
[2021-06-21 09:34] LABS: Absolute Lymphocyte Count 0.83 X10^3/uL (0.83-4.51); Absolute Neutrophil Count 17.6 X10^3/uL (2.0-7.7)
[2021-06-21 10:10] LABS: Pathologist Review Reviewed
--- NOTE | 2021-06-21 10:25 | PCM.PN.SRG ---
Subjective Subjective Patient has no new complaints or issues Objective Data Objective Data Vital Signs: Vital Signs Temp Pulse Resp BP Pulse Ox 98.1 F 49 L 16 135/68 H 99 06/21/21 08:50 06/21/21 08:50 06/21/21 08:50 06/21/21 08:50 06/21/21 08:50 Oxygen Flow Rate (L/min) 2 Oxygen Delivery Method Nasal Cannula Weight: 197 lb 8.547 oz Body Mass Index (BMI) 29.1 Intake & Output: Intake and Output for Last 24 Hours 06/19/21 06/20/21 06/21/21 23:59 23:59 23:59 Intake Total 2930 / 3030 2100 / 2100 390 / 390 Output Total 1200 / 1750 2000 / 2300 1060 / 1060 Balance 1730 / 1280 100 / -200 -670 / -670 Lab / Micro Data Result Diagrams: 06/21/21 06:30 06/20/21 06:40 Labs: Laboratory Results - last 24 hr 06/20/21 06:40: Diff Path Review Reviewed 06/21/21 06:30: WBC 20.7 H, RBC 4.37 L, Hgb 12.8 L, Hct 39.4 L, MCV 90.2, MCH 29.3, MCHC 32.5, RDW Std Deviation 43.4, RDW Coeff of Makayla 13.3, Plt Count 357, MPV 10.6, Neut % (Auto) Not Reportable, Absolute Neuts (auto) 17.6 H, Absolute Lymphs (auto) 0.83, Total Counted 100, Neutrophils % (Manual) 84 H, Band Neutrophils % 1, Lymphocytes % (Manual) 4 L, Monocytes % (Manual) 6, Metamyelocytes % 1, Myelocytes % 4 H, Diff Path Review May , Platelet Estimate ADEQUATE, RBC Morphology NORM C+C Micro: Microbiology 06/19/21 05:30 Blood Culture (Wb) - Anticubital Right Blood Culture - Preliminary No growth in 48 hours. 06/19/21 05:42 Nasal Secretion SARS-CoV-2 Antigen (Rapid) - Final Radiography Diagnostic Testing: Radiology Impression Chest X-Ray 06/20/21 15:05 IMPRESSION: No evidence of pneumothorax. Electronically Signed: Peter Soto MD at 15:18 EST , Service support , Physical Exam Const no apparent distress Resp normal respiratory effort Cardio regular rate GI soft to palpation and non-tender Assessment & Plan Assessment/Plan (1) Recurrent pneumothorax after chest tube removed: PLAN: Patient had the chest tube placed to waterseal yesterday. I do not appreciate a large pneumothorax on x-ray and I will remove the chest tube. Repeat x-ray in 4 hours. Jesus Dior MD Pager: [facility] [address] [place] [address], [address] [place] [address] Office:
--- NOTE | 2021-06-21 10:38 | DCINST_ITS ---
Discharge Instructions Diet Discharge Diet: No restrictions Activity Discharge Activity: Return to Normal Activity Weight Bearing Status: Weight bearing as tolerated Dressing / Incision Call your doctor if you observe: Fever of 101 or Higher, Numbness or Tingling, Shortness of breath, Dizziness, Chest pain, Increased palpitations (irregular heartbeat) and Calf discomfort Follow Up Care Please Follow Up With: Primary care provider When: Within the next two weeks. Test Results: Test results from this visit will be discussed in further detail at your follow-up appointment, if applicable. Discharge Plan Admission Admit Date/Time: 06/19/21 06:42 Primary Reason for Your Visit: Pneumothorax Attending Provider: Enrrique Niño Primary Care Provider: Conrad Arroyo Consulting Providers: Jesus Dior Discharge Orders/Prescriptions Prescriptions: Continued Complete Multivitamin tablet 1 tab PO DAILY RF: 0 amiodarone 200 mg tablet 100 mg PO DAILY Qty: 15 RF: 12 amlodipine 10 mg tablet 5 mg PO BID Qty: 30 RF: 12 apixaban 5 mg tablet 5 mg PO BID Qty: 60 RF: 12 atorvastatin 40 mg tablet 40 mg PO QHS Qty: 30 RF: 11 clopidogrel 75 mg tablet 75 mg PO DAILY Qty: 30 RF: 12 potassium chloride 10 mEq tablet extended release 20 meq PO TID Qty: 90 RF: 12 famotidine 20 MG tablet 20 mg PO QHS RF: 0 baclofen 10 MG tablet 5 mg PO TID RF: 0 lorazepam 0.5 MG tablet 0.5 mg PO BID RF: 0 loratadine 10 MG tablet 10 mg PO DAILY RF: 0 trazodone 50 mg tablet 100 mg PO QHS RF: 0 sildenafil 50 mg tablet 50 mg PO PRN PRN (Reason: Erectile Dysfunction) RF: 0 ezetimibe 10 mg tablet 10 mg PO DAILY RF: 0 fluticasone propionate [Flonase Allergy Relief] 50 mcg/actuation [place],Suspension 2 spray INTRANASAL DAILY RF: 0 escitalopram oxalate 20 mg Tablet 20 mg PO DAILY RF: 0 nystatin 100,000 unit/gram Ointment 1 applic topical BID Qty: 0 RF: 0 menthol-zinc oxide [Calmoseptine] 0.44-20.6 % Ointment 1 applic topical TID PRN (Reason: Diaper Rash) Qty: 0 RF: 0 hydrochlorothiazide 12.5 mg tablet 12.5 mg PO DAILY 30 Days Qty: 30 RF: 0 prednisone 10 mg tablet See Taper mg PO DAILY Qty: 30 RF: 0 albuterol sulfate 90 mcg/actuation HFA aerosol inhaler 2 puff INHALATION Q6H PRN (Reason: shortness of breath or wheezing) Qty: 18 RF: 6 metoprolol tartrate 25 mg tablet 12.5 mg PO BID Qty: 30 RF: 12 Referrals / Follow Up: Jesus Dior MD [STAFF PHYSICIAN] - Within 2 Weeks Doug Mcgrath DO [STAFF PHYSICIAN] - Within 1 Week Conrad Arroyo MD [Primary Care Provider] - Within 2 Weeks Disposition Disposition (needs filled in before D/C Order can be placed): Home Health Service
--- NOTE | 2021-06-21 10:50 | CASEMGMT ---
Living Will and General Durable Power of [employer] Installer scanned into summary tab of Eli richards is listed as POA. TIAN Lima
--- NOTE | 2021-06-21 11:14 | PCM.PN.BLA ---
Progress Note chest tube removed. will order 2 view in 4 hours
--- NOTE | 2021-06-21 11:49 | CASEMGMT ---
Addendum entered by Betina Escalante 06/21/21 16:04: Faxed dc info to [facility] at this time. Original Note: TC fariba Bradley at [facility], aware pt may dc today. Faxed all of referral information at this time.
--- NOTE | 2021-06-21 13:52 | DS.PCM_ITS ---
Documented by User: Leon TIDWELL 06/21/21 15:58 Providers Date of Admission: 06/19/21 Primary Care Physician: Dr. Conrad Arroyo MD Consultations 06/19/21 08:02 Consult: General Surgery Routine Consulting Provider: Jesus Dior Reason for Consult: Pneumothorax EMERGENT Consult: No MD Notified: Yes Date Notified: 06/19/21 Time Notified: 06:51 Method of Notification: Text Method of Consult:: In-Person Comments:: via pneumatic systems operator Reason For Visit: RIGHT PNEUMOTORAX Diagnosis Discharge Diagnosis (1) Recurrent pneumothorax after chest tube removed: Status: Acute Code(s): J95.811 - Postprocedural pneumothorax Medications at Discharge Home Medications famotidine 20 mg PO QHS 12/21/16 baclofen 5 mg PO TID tab 02/05/17 multivitamin,af-zavd-qjfehbkw 1 tab PO DAILY 12/04/18 loratadine 10 mg PO DAILY 03/11/19 lorazepam 0.5 mg PO BID 03/11/19 amiodarone 200 mg tablet 100 mg PO DAILY #15 tab 04/19/20 amlodipine 10 mg tablet 5 mg PO BID #30 tab 04/19/20 apixaban 5 mg tablet 5 mg PO BID #60 tab 04/19/20 atorvastatin 40 mg tablet 40 mg PO QHS #30 tab 04/19/20 clopidogrel 75 mg tablet 75 mg PO DAILY #30 tab 04/19/20 potassium chloride 10 mEq tablet,extended release 20 meq PO TID #90 tab 04/19/20 trazodone 50 mg tablet 100 mg PO QHS tab 04/19/20 albuterol sulfate 90 mcg/actuation aerosol inhaler 2 puff INHALATION Q6H PRN #18 g 01/19/21 metoprolol tartrate 25 mg tablet 12.5 mg PO BID #30 tab 04/19/21 ezetimibe 10 mg PO DAILY 04/22/21 sildenafil 50 mg PO PRN PRN 04/22/21 fluticasone propionate [Flonase Allergy Relief] 2 spray INTRANASAL DAILY 06/10/21 escitalopram oxalate 20 mg PO DAILY 06/11/21 hydrochlorothiazide 12.5 mg PO DAILY 30 Days #30 tab 06/17/21 menthol-zinc oxide [Calmoseptine] 1 applic TOPICAL TID PRN #0 g 06/17/21 nystatin 1 applic TOPICAL BID #0 g 06/17/21 prednisone See Taper PO DAILY #30 tab 06/17/21 Hospital Course Summary of Care Provided Minutes Spent on Discharge: 35 Hospital Course: Patient is a 65-year-old male who presented to the ED on 06/19/2021 with a chief complaint of shortness of breath status post recurrent pneumothorax. Patient had recently been discharged after resolution of the same, however after patient went home for 2 days he began to become progressively more short of breath and his oxygen saturation began to drop. Chest x-ray was obtained and it was determined that patient had reaccumulated a large right-sided pneumothorax. Dr. Ojeda it was consulted and a chest tube was placed. The chest tube had an immediate effect and pneumothorax was resolved. Patient was transitioned to wet seal and no air leak developed. Dagmar st tube was subsequently removed due to resolution of pneumothorax and steady progression. Patient will be discharged and is to follow-up with primary care provider and Dr. Jay within the next 2 weeks. Patient is also to follow- up with Dr. Mcgrath of pulmonology within the next week, for results of biopsy from right upper lung mass which was done on prior admission. Patient seen by Leon Amanda PA-C, under the supervision of Dr. Niño. Physical Exam Narrative Patient is a 65-year-old male comfortably resting in in bed, who does not appear in acute distress. Patient communication in regards to his status is limited as he is aphasic from prior stroke. Const alert and no apparent distress Exam Limitations: other limitations HEENT normocephalic, head/scalp atraumatic and hearing grossly normal bilaterally Eyes PERRL, EOMs intact bilaterally and conjunctivae normal Neck no lymphadenopathy, supple and no JVD Resp normal respiratory effort, no retractions, no use of accessory muscles and clear to auscultation bilaterally Cardio regular rate, regular rhythm and no murmurs GI normal to inspection, nondistended, normoactive bowel sounds, soft to palpation and non-tender Extremity normal to inspection, full ROM and no clubbing, cyanosis or edema Skin no rashes or lesions noted, no wounds and skin turgor normal Psych affect normal Weight / BMI Weight Weight: 197 lb 8.547 oz Body Mass Index (BMI) 29.1 ABG / Lab / Microbiology Data Result Diagrams: 06/21/21 06:30 06/20/21 06:40 Laboratory: Laboratory Results - last 24 hr 06/20/21 06:40: Diff Path Review Reviewed 06/21/21 06:30: WBC 20.7 H, RBC 4.37 L, Hgb 12.8 L, Hct 39.4 L, MCV 90.2, MCH 29.3, MCHC 32.5, RDW Std Deviation 43.4, RDW Coeff of Makayla 13.3, Plt Count 357, MPV 10.6, Neut % (Auto) Not Reportable, Absolute Neuts (auto) 17.6 H, Absolute Lymphs (auto) 0.83, Total Counted 100, Neutrophils % (Manual) 84 H, Band N eutrophils % 1, Lymphocytes % (Manual) 4 L, Monocytes % (Manual) 6, Metamyelo cytes % 1, Myelocytes % 4 H, Diff Path Review May foll, Platelet Estimate MAUREEN QUATE, RBC Morphology NORM C+C Microbiology: Microbiology 06/19/21 05:30 Blood Culture (Wb) - Anticubital Right Blood Culture - Pre liminary No growth in 48 hours. 06/19/21 05:42 Nasal Secretion SARS-CoV-2 Antigen (Rapid) - Final Radiography Diagnostic Testing: Radiology Impression Chest X-Ray 06/20/21 15:05 IMPRESSION: No evidence of pneumothorax. Electronically Signed: Peter Soto MD at 15:18 EST , Service support , D/C Instructions Discharge Diet: No restrictions Weight Bearing Status: Weight bearing as tolerated Call your doctor if you observe: Fever of 101 or Higher, Numbness or Tingling, Shortness of breath, Dizziness, Chest pain, Increased palpitations (irregular heartbeat) and Calf discomfort Please Follow Up With: Primary care provider When: Within the next two weeks. Meaningful Use Info Meaningful Use Diagnoses (Choose all that apply): None applicable Discharge Plan Admission Admit Date/Time: 06/19/21 06:42 Primary Reason for Your Visit: Pneumothorax Attending Provider: Enrrique Niño Primary Care Provider: Cornad Arroyo Consulting Providers: Jesus Dior Discharge Orders/Prescriptions Prescriptions: Continued Complete Multivitamin tablet 1 tab PO DAILY RF: 0 amiodarone 200 mg tablet 100 mg PO DAILY Qty: 15 RF: 12 amlodipine 10 mg tablet 5 mg PO BID Qty: 30 RF: 12 apixaban 5 mg tablet 5 mg PO BID Qty: 60 RF: 12 atorvastatin 40 mg tablet 40 mg PO QHS Qty: 30 RF: 11 clopidogrel 75 mg tablet 75 mg PO DAILY Qty: 30 RF: 12 potassium chloride 10 mEq tablet extended release 20 meq PO TID Qty: 90 RF: 12 famotidine 20 MG tablet 20 mg PO QHS RF: 0 baclofen 10 MG tablet 5 mg PO TID RF: 0 lorazepam 0.5 MG tablet 0.5 mg PO BID RF: 0 loratadine 10 MG tablet 10 mg PO DAILY RF: 0 trazodone 50 mg tablet 100 mg PO QHS RF: 0 sildenafil 50 mg tablet 50 mg PO PRN PRN (Reason: Erectile Dysfunction) RF: 0 ezetimibe 10 mg tablet 10 mg PO DAILY RF: 0 fluticasone propionate [Flonase Allergy Relief] 50 mcg/actuation [place],Suspension 2 spray INTRANASAL DAILY RF: 0 escitalopram oxalate 20 mg Tablet 20 mg PO DAILY RF: 0 nystatin 100,000 unit/gram Ointment 1 applic topical BID Qty: 0 RF: 0 menthol-zinc oxide [Calmoseptine] 0.44-20.6 % Ointment 1 applic topical TID PRN (Reason: Diaper Rash) Qty: 0 RF: 0 hydrochlorothiazide 12.5 mg tablet 12.5 mg PO DAILY 30 Days Qty: 30 RF: 0 prednisone 10 mg tablet See Taper mg PO DAILY Qty: 30 RF: 0 albuterol sulfate 90 mcg/actuation HFA aerosol inhaler 2 puff INHALATION Q6H PRN (Reason: shortness of breath or wheezing) Qty: 18 RF: 6 metoprolol tartrate 25 mg tablet 12.5 mg PO BID Qty: 30 RF: 12 Referrals / Follow Up: Jesus Dior MD [STAFF PHYSICIAN] - Within 2 Weeks Doug Mcgrath DO [STAFF PHYSICIAN] - Within 1 Week Conrad Arroyo MD [Primary Care Provider] - Within 2 Weeks Disposition Disposition (needs filled in before D/C Order can be placed): Home Health Service Documented by User: Dr. Enrrique Niño MD 06/21/21 18:25 Providers Date of Admission: 06/19/21 Reason For Visit: RIGHT PNEUMOTORAX Medications at Discharge Home Medications famotidine 20 mg PO QHS 12/21/16 baclofen 5 mg PO TID tab 02/05/17 multivitamin,ea-prtn-xzyrsnwk 1 tab PO DAILY 12/04/18 loratadine 10 mg PO DAILY 03/11/19 lorazepam 0.5 mg PO BID 03/11/19 amiodarone 200 mg tablet 100 mg PO DAILY #15 tab 04/19/20 amlodipine 10 mg tablet 5 mg PO BID #30 tab 04/19/20 apixaban 5 mg tablet 5 mg PO BID #60 tab 04/19/20 atorvastatin 40 mg tablet 40 mg PO QHS #30 tab 04/19/20 clopidogrel 75 mg tablet 75 mg PO DAILY #30 tab 04/19/20 potassium chloride 10 mEq tablet,extended release 20 meq PO TID #90 tab 04/19/20 trazodone 50 mg tablet 100 mg PO QHS tab 04/19/20 albuterol sulfate 90 mcg/actuation aerosol inhaler 2 puff INHALATION Q6H PRN #18 g 01/19/21 metoprolol tartrate 25 mg tablet 12.5 mg PO BID #30 tab 04/19/21 ezetimibe 10 mg PO DAILY 04/22/21 sildenafil 50 mg PO PRN PRN 04/22/21 fluticasone propionate [Flonase Allergy Relief] 2 spray INTRANASAL DAILY 06/10/21 escitalopram oxalate 20 mg PO DAILY 06/11/21 hydrochlorothiazide 12.5 mg PO DAILY 30 Days #30 tab 06/17/21 menthol-zinc oxide [Calmoseptine] 1 applic TOPICAL TID PRN #0 g 06/17/21 nystatin 1 applic TOPICAL BID #0 g 06/17/21 prednisone See Taper PO DAILY #30 tab 06/17/21 ABG / Lab / Microbiology Data Result Diagrams: 06/21/21 06:30 06/20/21 06:40 Discharge Plan Admission Admit Date/Time: 06/19/21 06:42 Primary Reason for Your Visit: Pneumothorax Attending Provider: Enrrique Niño Primary Care Provider: Conrad Arroyo Consulting Providers: Jesus Dior Discharge Orders/Prescriptions Prescriptions: Continued Complete Multivitamin tablet 1 tab PO DAILY RF: 0 amiodarone 200 mg tablet 100 mg PO DAILY Qty: 15 RF: 12 amlodipine 10 mg tablet 5 mg PO BID Qty: 30 RF: 12 apixaban 5 mg tablet 5 mg PO BID Qty: 60 RF: 12 atorvastatin 40 mg tablet 40 mg PO QHS Qty: 30 RF: 11 clopidogrel 75 mg tablet 75 mg PO DAILY Qty: 30 RF: 12 potassium chloride 10 mEq tablet extended release 20 meq PO TID Qty: 90 RF: 12 famotidine 20 MG tablet 20 mg PO QHS RF: 0 baclofen 10 MG tablet 5 mg PO TID RF: 0 lorazepam 0.5 MG tablet 0.5 mg PO BID RF: 0 loratadine 10 MG tablet 10 mg PO DAILY RF: 0 trazodone 50 mg tablet 100 mg PO QHS RF: 0 sildenafil 50 mg tablet 50 mg PO PRN PRN (Reason: Erectile Dysfunction) RF: 0 ezetimibe 10 mg tablet 10 mg PO DAILY RF: 0 fluticasone propionate [Flonase Allergy Relief] 50 mcg/actuation [place],Suspension 2 spray INTRANASAL DAILY RF: 0 escitalopram oxalate 20 mg Tablet 20 mg PO DAILY RF: 0 nystatin 100,000 unit/gram Ointment 1 applic topical BID Qty: 0 RF: 0 menthol-zinc oxide [Calmoseptine] 0.44-20.6 % Ointment 1 applic topical TID PRN (Reason: Diaper Rash) Qty: 0 RF: 0 hydrochlorothiazide 12.5 mg tablet 12.5 mg PO DAILY 30 Days Qty: 30 RF: 0 prednisone 10 mg tablet See Taper mg PO DAILY Qty: 30 RF: 0 albuterol sulfate 90 mcg/actuation HFA aerosol inhaler 2 puff INHALATION Q6H PRN (Reason: shortness of breath or wheezing) Qty: 18 RF: 6 metoprolol tartrate 25 mg tablet 12.5 mg PO BID Qty: 30 RF: 12 Referrals / Follow Up: Jesus Dior MD [STAFF PHYSICIAN] - Within 2 Weeks Doug Mcgrath DO [STAFF PHYSICIAN] - Within 1 Week Conrad Arroyo MD [Primary Care Provider] - Within 2 Weeks Disposition Disposition (needs filled in before D/C Order can be placed): Home Health Service Charges/Coding Addendum Addendum: Dr. Niño: I personally reviewed the chart and examined the patient, and agree with the above findings. 65-year-old male presented from home with shortness of breath and increasing oxygen requirements. He was recently admitted to the hospital and had a lung biopsy for right lung mass. He had a small pneumothorax that on the t padmini of discharge had not changed so he was discharged home. Readmission to the hospital he was found to have pneumothorax that had grown on the right therefore chest tube was placed. Pathology results are pending. Surgery was consulted and a chest tube was placed with resolution of the pneumothorax. Delete that he is feeling well and currently just awaiting pathology results. 06/20/2021: Doing well, no issues overnight. We were able to put his chest tube to waterseal today. Will recheck chest x-ray in the afternoon if that is unremarkable then can obtain a chest x-ray in the morning and potentially remove the chest tube. Biopsy has come back and is negative for malignancy. 06/21/2021: Doing well, was maintained on waterseal overnight and had a repeat chest x-ray this morning showed no reoccurrence of the pneumothorax. His chest tube was pulled and the chest x-ray 4 hours later was also negative for pneumothorax. He has had an elevated white blood cell count since 04/22/2021, and he is afebrile feels much better and he is also currently on steroids therefore I do not think that he has pneumonia and does not need to be discharged on any antibiotics. I discussed with him the plan for discharge today and he was able to communicate that he was okay with going home today. He was excited to know that his pathology was negative for malignancy. Visit Charges Inpatient E&M: [id number] Disch Hosp
[2021-06-21 14:17] LABS: Pathologist Review Reviewed
[2021-06-21 14:37] VITALS: BP 142/68; PULSE 61; RESP 18; TEMP 36.6; O2SAT 97
--- NOTE | 2021-06-21 14:52 | RAD_ITS ---
STUDY: X-RAY CHEST REASON FOR EXAM: Male, 65 years old. chest tube removed TECHNIQUE: AP and lateral views of the chest. COMPARISON: Comparison is made with prior study done 3:39 PM. FINDINGS: The small-caliber right-sided chest tube has been removed. No evidence of pneumothorax. RAD/Chest PA and Lateral IMPRESSION: No evidence of pneumothorax following removal of the small caliber right chest tube. Electronically Signed: Peter Soto MD at 15:14 EST , Service support ,
--- NOTE | 2021-06-22 10:04 | NURSING ---
pt's called in with concerns that she has not heard results of biopsy states she is very anxious about results. call placed to Dr. Mcgrath's office talked with nurse Monroy requesting call placed to patient/ as .
== END 2021-06-21 17:55 | disposition home health service (06) | DRG 199 ==
LOC: ED 07:05 → MS3 07:10
PROVIDERS: Physician Assistant; Admitting Provider Hospitalist; Emergency Provider Emergency Medicine; PCP Family Medicine; Visit Provider Family Medicine
DX: J95.811 Postprocedural pneumothorax (principal); I63.9 Cerebral infarction, unspecified; I48.20 Chronic atrial fibrillation, unspecified; I69.320 Aphasia following cerebral infarction; D72.829 Elevated white blood cell count, unspecified; Y83.8 Other surgical procedures as the cause of abnormal reaction of the patient, or of later complication, without mention of misadventure at the time of the procedure; R09.02 Hypoxemia; Z79.52 Long term (current) use of systemic steroids; R91.8 Other nonspecific abnormal finding of lung field; Z79.02 Long term (current) use of antithrombotics/antiplatelets; I10 Essential (primary) hypertension; Z99.81 Dependence on supplemental oxygen; Z87.891 Personal history of nicotine dependence; Z66 Do not resuscitate; Z79.899 Other long term (current) drug therapy
CPT/HCPCS: 32551; 36415; 71045; 71046; 80048; 83605; 83880; 84484; 85025; 87040; 87426; 93005; 99251; 99285; 99406; J7030; A4216; G0463

== ENCOUNTER 2021-07-11 11:46 | Emergency (ER) | payer MEDICARE, MEDICAID, SELFPAY ==
[2021-07-11 11:49] VITALS: BP 140/56; PULSE 70; PULSE 71; RESP 18; RESP 20; TEMP 36.4; O2SAT 90; BMI 27.0
[2021-07-11 13:16] VITALS: BP 139/70; PULSE 68; RESP 28; TEMP 36.9; O2SAT 93
--- NOTE | 2021-07-11 13:24 | EKG12_ITS ---
Test Reason : SOB Blood Pressure : / mmHG Vent. Rate : 068 BPM Atrial Rate : 068 BPM P-R Int : 208 ms QRS Dur : 086 ms QT Int : 468 ms P-R-T Axes : 054 -39 081 degrees QTc Int : 497 ms Normal sinus rhythm Left axis deviation Nonspecific T wave abnormality Abnormal ECG Confirmed by LITO WHITMAN, OLVIN ([id number]), food expeditor KHRIS HOPKINS ([id number]) on 07/13/2021 11:45:50 AM Referred By: MADI Confirmed By:OLVIN MORSE MD
--- NOTE | 2021-07-11 13:34 | EDS_ITS ---
HPI History of Present Illness Chief Complaint: Shortness of Breath Narrative Narrative: Patient presenting for evaluation secondary to shortness of breath. Patient has a underlying history of a right upper lung mass. This was complicated by a pneumothorax after a biopsy with the patient has been in and out of the hospital a couple times most recently approximately a month ago. Patient is chronically on 2 L of oxygen. Patient's states that he has been having some increasing shortness of breath as well as low-grade fevers recently. He has nonproductive cough. She reports that today the patient had pulse ox is down to 84% on his home 2 L, had to be turned up to 3 L and was having some tachypnea. No GI type symptoms. Review of systems otherwise negative. [facility] Medical History Anemia Aphasia as late effect of stroke Atherosclerosis of coronary artery without angina pectoris Carotid artery disease Cerebral arterial aneurysm Chronic atrial fibrillation Confusion Debility Dysphagia HTN (hypertension) Hyperlipidemia Left acute arterial ischemic stroke, MCA (middle cerebral artery) (10/31/16) jail current use of amiodarone Lower resp. tract infection Mixed obstructive and restrictive ventilatory defect Respiratory failure Sepsis Smoker Stroke/cerebrovascular accident Home Medications famotidine 20 mg PO QHS 12/21/16 [History Last Taken 03/10/19] baclofen 5 mg PO TID tab 02/05/17 [Rx Last Taken 03/11/19] multivitamin,tw-sfav-dpujnvtk 1 tab PO DAILY 12/04/18 [History Last Taken 03/11/19] loratadine 10 mg PO DAILY 03/11/19 [History Last Taken 03/11/19] lorazepam 0.5 mg PO BID 03/11/19 [History Last Taken 03/11/19] amiodarone 200 mg tablet 100 mg PO DAILY #15 tab 04/19/20 [Rx Last Taken Unknown] amlodipine 10 mg tablet 5 mg PO BID #30 tab 04/19/20 [Rx Last Taken Unknown] apixaban 5 mg tablet 5 mg PO BID #60 tab 04/19/20 [Rx Last Taken Unknown] atorvastatin 40 mg tablet 40 mg PO QHS #30 tab 04/19/20 [Rx Last Taken Unknown] clopidogrel 75 mg tablet 75 mg PO DAILY #30 tab 04/19/20 [Rx Last Taken Unknown] potassium chloride 10 mEq tablet,extended release 20 meq PO TID #90 tab 04/19/20 [Rx Last Taken Unknown] trazodone 50 mg tablet 100 mg PO QHS tab 04/19/20 [History Last Taken Unknown] albuterol sulfate 90 mcg/actuation aerosol inhaler 2 puff INHALATION Q6H PRN #18 g 01/19/21 [Rx Last Taken Unknown] metoprolol tartrate 25 mg tablet 12.5 mg PO BID #30 tab 04/19/21 [Rx Last Taken Unknown] ezetimibe 10 mg PO DAILY 04/22/21 [History Last Taken Unknown] sildenafil 50 mg PO PRN PRN 04/22/21 [History Last Taken Unknown] fluticasone propionate [Flonase Allergy Relief] 2 spray INTRANASAL DAILY 06/10/21 [History Last Taken Unknown] escitalopram oxalate 20 mg PO DAILY 06/11/21 [History Last Taken Unknown] hydrochlorothiazide 12.5 mg PO DAILY 30 Days #30 tab 06/17/21 [Rx Last Taken Unknown] menthol-zinc oxide [Calmoseptine] 1 applic TOPICAL TID PRN #0 g 06/17/21 [Rx Last Taken Unknown] nystatin 1 applic TOPICAL BID #0 g 06/17/21 [Rx Last Taken Unknown] prednisone See Taper PO DAILY #30 tab 06/17/21 [Rx Last Taken Unknown] Allergy/AdvReac Type Severity Reaction Status Date / Time azithromycin Allergy Intermediate Hives Verified 07/11/21 11:48 [From Zithromax Z-Dayo] lisinopril Allergy Intermediate Hives and Verified 07/11/21 11:48 diarrhea Sulfa (Sulfonamide Allergy Hives Verified 07/11/21 11:48 Antibiotics) Family History Mother Diabetes Heart disease Father AAA (abdominal aortic aneurysm) Heart disease Surgical History History of gastrostomy tube placement (11/07/16) History of tracheostomy (11/07/16) 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 Social History household members: spouse Smoking Status: Former smoker how long ago did patient quit smokin years ago, 2ppd second hand exposure: Yes alcohol intake: never substance use type: does not use caffeine: No ROS ROS ED Review of Systems ROS Unobtainable: other Details: Baseline aphasia Constitutional Constitutional ED: Reports fever(s) Respiratory/Chest Respiratory/Chest: Reports cough, dyspnea and sputum EXAM Physical Exam Const Vital Signs: 07/11/21 11:49 07/11/21 13:16 Temperature 97.5 F L 98.4 F Temperature Source Temporal Temporal Pulse Rate 71 68 Respiratory Rate 20 H 28 H Blood Pressure 140/56 H 139/70 H Blood Pressure Mean 84 93 Pulse Ox 90 93 Oxygen Delivery Method Nasal Cannula Nasal Cannula Oxygen Flow Rate (L/min) 2 2 Positive well nourished and well developed General Appearance ED: well developed HEENT Reports moist mucous membranes atraumatic Eyes EOMs intact bilaterally Neck no lymphadenopathy and supple Resp clear to auscultation bilaterally Resp Narrative: Tachypnea Cardio regular rate, regular rhythm and no murmurs Cardio Narrative: 2+ radial pulses bilaterally symmetric GI non-tender Palpation: soft Back/Spine normal to inspection Extremity normal to inspection Neuro Neuro Narrative: Patient is oriented, aphasic at baseline, no lateralizing motor or sensory deficits Sensorium / Orientation: alert Psych mental status grossly normal Skin Lesions: no lesions Rashes: no rashes MDM MDM MDM Narrative Medical decision making narrative: Patient presented for evaluation secondary to shortness of breath. Patient was noted to be somewhat tachypneic, but was on his baseline oxygen and was saturating well. Work-up was obtained. Chest x-ray by my personal review as well as radiology shows a right upper lobe infiltrates. I reviewed the patient's prior records, this is the location of his lung mass but it does seem to be somewhat more hazy surrounding it potentially indicative of the patient having a infiltrative process in this area. He was noted to have a leukocytosis 12.2 thousand with a neutrophilic shift at 72%. Chemistry was unremarkable troponin was negative BNP was noted to be unremarkable. Patient continues to be somewhat tachypneic with respiration rates in the high 20s. He has had fevers, his states that in the last couple of days he has had a overall declining functional status with frequent falls and difficulty with ambulating. This point I believe the patient potentially would benefit from inpatient management of this pneumonia. Patient was given dose of Levaquin as he has an azithromycin allergy. Lab Data Labs: Laboratory Results - last 24 hr 07/11/21 07/11/21 07/11/21 13:34 13:34 13:34 WBC 12.2 H RBC 4.01 L Hgb 11.8 L Hct 36.4 L MCV 90.8 MCH 29.4 MCHC 32.4 RDW Std Deviation 48.1 H RDW Coeff of Makayla 14.5 Plt Count 231 MPV 10.0 Immature Gran % (Auto) 4.100 H Neut % (Auto) 72.1 H Lymph % (Auto) 8.9 L [place] % (Auto) 9.0 Eos % (Auto) 5.3 H Baso % (Auto) 0.6 Absolute Neuts (auto) 8.8 H Absolute Lymphs (auto) 1.09 Nucleated RBC % 0 Sodium 142 Potassium 3.7 Chloride 105 Carbon Dioxide 32.0 Anion Gap 5 BUN 9 Creatinine 0.91 Estim Creat Clear Calc 80.93 Est GFR (MDRD) Af Amer 107 Est GFR (MDRD) Non-Af 89 BUN/Creatinine Ratio 9.9 L Glucose 117 H Calcium 8.8 Troponin I High Sens 6 B-Natriuretic Peptide 89.2 Discharge Plan Triage Chief Complaint: Shortness of Breath ED Provider: Danial Otero Dx/Rx/DC Orders Clinical Impression: Pneumonia, Falls frequently Prescriptions: No Action Complete Multivitamin tablet 1 tab PO DAILY RF: 0 amiodarone 200 mg tablet 100 mg PO DAILY Qty: 15 RF: 12 amlodipine 10 mg tablet 5 mg PO BID Qty: 30 RF: 12 apixaban 5 mg tablet 5 mg PO BID Qty: 60 RF: 12 atorvastatin 40 mg tablet 40 mg PO QHS Qty: 30 RF: 11 clopidogrel 75 mg tablet 75 mg PO DAILY Qty: 30 RF: 12 potassium chloride 10 mEq tablet extended release 20 meq PO TID Qty: 90 RF: 12 famotidine 20 MG tablet 20 mg PO QHS RF: 0 baclofen 10 MG tablet 5 mg PO TID RF: 0 lorazepam 0.5 MG tablet 0.5 mg PO BID RF: 0 loratadine 10 MG tablet 10 mg PO DAILY RF: 0 trazodone 50 mg tablet 100 mg PO QHS RF: 0 sildenafil 50 mg tablet 50 mg PO PRN PRN (Reason: Erectile Dysfunction) RF: 0 ezetimibe 10 mg tablet 10 mg PO DAILY RF: 0 fluticasone propionate [Flonase Allergy Relief] 50 mcg/actuation [place],Suspension 2 spray INTRANASAL DAILY RF: 0 escitalopram oxalate 20 mg Tablet 20 mg PO DAILY RF: 0 nystatin 100,000 unit/gram Ointment 1 applic topical BID Qty: 0 RF: 0 menthol-zinc oxide [Calmoseptine] 0.44-20.6 % Ointment 1 applic topical TID PRN (Reason: Diaper Rash) Qty: 0 RF: 0 hydrochlorothiazide 12.5 mg tablet 12.5 mg PO DAILY 30 Days Qty: 30 RF: 0 prednisone 10 mg tablet See Taper mg PO DAILY Qty: 30 RF: 0 albuterol sulfate 90 mcg/actuation HFA aerosol inhaler 2 puff INHALATION Q6H PRN (Reason: shortness of breath or wheezing) Qty: 18 RF: 6 metoprolol tartrate 25 mg tablet 12.5 mg PO BID Qty: 30 RF: 12 Primary Care Provider: Conrad Arroyo Referrals: Conrad Arroyo MD [Primary Care Provider] - Disposition Disposition: Acute Care Hospital [facility]
--- NOTE | 2021-07-11 13:35 | RAD_ITS ---
STUDY: X-RAY CHEST REASON FOR EXAM: Male, 65 years old. SOB TECHNIQUE: Single AP portable view of the chest. COMPARISON: Comparison is made with prior study dated 06/21/2021. FINDINGS: EKG electrodes are seen. New infiltrate in the right lung apex. Follow-up is recommended. There is no demonstrated pleural abnormality. Sternal cerclage wires and vascular clips are present from a prior sternotomy and coronary artery bypass graft procedure (CABG). Normal mediastinum and ying. Normal visualized pulmonary arteries. There is atherosclerotic calcification of the aortic arch with tortuosity. Normal visualized thoracic spine. There is degenerative osteoarthritis of the bilateral shoulders. There is no demonstrated abnormality of the visualized soft tissue structures of the upper abdomen. RAD/Chest 1 View (Portable) IMPRESSION: New right upper lobe infiltrate. Electronically Signed: Peter Soto MD at 15:37 EST , Service support ,
[2021-07-11 13:54] LABS: Absolute Lymphocyte Count 1.09 X10^3/uL (0.83-4.51); Absolute Neutrophil Count 8.8 X10^3/uL (2.0-7.7); Basophil# 0.07 X10^3/uL; Basophil% 0.6 % (0-1); Eosinophil# 0.65 X10^3/uL; Eosinophils% 5.3 % (0-5); Hematocrit 36.4 % (40-54); Hemoglobin 11.8 g/dL (13.0-16.5); Lymphocyte # 1.09 X10^3/ul (0.83-4.51); Lymphocyte % 8.9 % (19-41); Mean Corp Hgb Conc 32.4 g/dL (32-36); Mean Corpuscular Hgb 29.4 pg (27.0-32.0); Mean Corpuscular Volume 90.8 fL (80-94); NRBC Flagged by Analyzer 0 % (0-5); Neutrophil # 8.79 X10^3/uL (2.7-7.7); Neutrophil % 72.1 % (47-70); Platelet Count 231 K/mm3 (150-450); RBC Distribution Width CV 14.5 % (11.6-14.6); RBC Distribution Width SD 48.1 fl (35.1-43.9); Red Blood Count 4.01 M/mm3 (4.6-6.2); White Blood Count 12.2 K/mm3 (4.4-11.0)
[2021-07-11 14:09] LABS: BNP,B-Type NATRIURETIC PEPTIDE 89.2 pg/mL (0-100)
[2021-07-11 14:12] LABS: Anion Gap 5 (5-15); BUN 9 mg/dL (7-18); BUN/Creat Ratio 9.9 RATIO (10-20); Calcium,Total 8.8 mg/dL (8.5-10.1); Chloride 105 mmol/L (98-107); Creatinine, Serum 0.91 mg/dL (0.70-1.30); EST Glomerular Filtration Rate 89 mL/min (>60); Est Glom Filt Rate - Afr Amer 107 mL/min (>60); Estimated Creatinine Clearance 80.93 ml/min; Glucose 117 mg/dL (74-106); Potassium 3.7 mmol/L (3.5-5.1); Sodium Level 142 mmol/L (136-145); Troponin-I HS 6 pg/mL (3.0-78.0)
--- NOTE | 2021-07-11 15:07 | NURSING ---
HOSPITALIST FOR DR BARRAZA
[2021-07-11] MEDS: levoFLOXacin IV 750 MG/150 ML BAG 100 MG IV (15:13)
[2021-07-11 15:17] VITALS: BP 145/68; PULSE 69; RESP 15; O2SAT 97
[2021-07-11 16:00] VITALS: TEMP 36.6
== END 2021-07-11 16:21 | disposition home or self-care (01) ==
PROVIDERS: Emergency Provider Emergency Medicine; PCP Family Medicine
DX: J18.9 Pneumonia, unspecified organism (principal); R29.6 Repeated falls; I25.10 Atherosclerotic heart disease of native coronary artery without angina pectoris; I10 Essential (primary) hypertension; E78.5 Hyperlipidemia, unspecified; I63.9 Cerebral infarction, unspecified; I69.320 Aphasia following cerebral infarction; I48.20 Chronic atrial fibrillation, unspecified; Z79.02 Long term (current) use of antithrombotics/antiplatelets; Z99.81 Dependence on supplemental oxygen; Z79.899 Other long term (current) drug therapy; Z87.891 Personal history of nicotine dependence
CPT/HCPCS: 71045; 80048; 83880; 84484; 85025; 87426; 87804; 93005; 96365; 96366; 99284; A4216

== ENCOUNTER 2021-09-26 21:00 | Outpatient (CLI) | payer MEDICARE, MEDICAID, SELFPAY | END 2021-09-26 23:59 | disposition home or self-care (01) | PROVIDERS: PCP Family Medicine; Visit Provider Nurse Practitioner Acute Care | DX: G47.30 Sleep apnea, unspecified (principal) | CPT/HCPCS: 95811 ==

== ENCOUNTER 2021-11-10 12:16 | Outpatient (CLI) | payer MEDICARE, MEDICAID, SELFPAY ==
[2021-11-10 12:30] VITALS: PULSE 52; PULSE 56; PULSE 58; PULSE 59; PULSE 66; PULSE 82; O2SAT 90; O2SAT 92; O2SAT 93; O2SAT 95; O2SAT 96
--- NOTE | 2021-11-10 12:50 | CT_ITS ---
STUDY: CT CHEST/THORAX WITHOUT CONTRAST REASON FOR EXAM: Male, 66 years old. RUL Mass RADIATION DOSAGE (If Supplied By Facility): CTDIvol = ( 14.40 ) mGy, DLP = ( 475.56 ) mGycm TECHNIQUE: Transaxial imaging was performed without the administration of intravenous contrast material. Multiplanar coronal and sagittal images were reformatted. Individualized dose optimization techniques were used for this CT. COMPARISON: Portable AP upright chest x-ray 08/16/2021; CTA chest 06/11/2021; CT-guided percutaneous right pleural drainage 06/16/2021 FINDINGS: There are mixed centrilobular and panlobular emphysematous changes in the bilateral lung krueger, more prominent in the apices. A few small, defined pneumatoceles are also present in the lung bases. The large masslike density seen previously in the right apex is no longer present, but there is ill-defined right suprahilar stranding consistent with scarring, atelectasis, or local inflammatory change. Thickening along the uppermost oblique right pleural fissure was present June 2021 has cleared. Trace linear subsegmental atelectasis or scarring in the lingula of left upper lobe is unchanged. There is no demonstrated pleural abnormality. Normal heart size and pericardium. There is trace calcification in the mitral valve annulus. There are calcifications of the coronary arteries. Sternal cerclage wires and vascular clips are present from a prior sternotomy and coronary artery bypass graft procedure (CABG). Right precarinal lymph node has decreased to 1.98 x 0.88 x 1.06 cm. No new mediastinal or hilar adenopathy Normal unenhanced pulmonary arteries. There is atherosclerotic calcification just at and above the aortic valve annulus. There is stable atherosclerotic calcification of the aortic arch with, proximal brachiocephalic arteries, and descending thoracic aorta. An endovascular stent is again seen in the main trunk of the left subclavian artery There are stable multi-level degenerative changes of the thoracic spine. Stable minor anterior wedging of the L1 vertebra. Stable degenerative arthrosis at the sternomanubrial articulation. Although not fully included in the [id number], an exophytic 3.35 x 2.75 cm hypodense subcapsular cyst at the posterior upper pole of the right kidney is grossly unchanged. CT/Chest without Contrast IMPRESSION: 1. Right apical mass seen June 2021 is no longer present. Now, there is ill-defined right suprahilar stranding of scarring or atelectasis. 2. Right pleural effusion seen on the prior CT also has cleared. 3. Right precarinal lymph node has decreased to 2 cm greatest diameter. No new adenopathy. 4. Mixed centrilobular and panlobular emphysematous changes. 5. Atherosclerotic vascular calcifications again noted. Prior endovascular stenting main trunk of the left subclavian artery again seen. 6. There are coronary artery calcifications. Prior median sternotomy and CABG again noted. Heart size remains normal. 7. Stable 3.35 cm exophytic subcapsular cyst of the posterior upper pole of the right kidney. Electronically Signed: Agustín Aquino MD at 9:00 EDT ,
--- NOTE | 2021-11-11 08:15 | PCM.PSN.6M ---
PSN 6 Minute Walk Test 6 Minute Walk Test 6 Minute Walk Test: 6 Minute Walk Test PSN:6-Minute Walk Test Start: 11/10/21 12:45 Freq: Status: Active Protocol: RESP.6MINW Document 11/10/21 12:30 EW (Rec: 11/10/21 12:55 EW [id number]) 6 Minute Walk Test Date Performed 11/10/21 Time Performed 12:30 Height 5 ft 9 in Weight: 87.09 kg Weight in Pounds 192.[address]: Doug Mcgrath Assistive device used: Cane Pre-test Oxygen Delivery Method Room Air Pulse Ox (%) 93 Pulse Rate (60-100 beats/min) 56 L Dyspnea Wayne Scale (0-10) 0 Exertion Wayne Scale (6-20) 6 1st minute Oxygen Delivery Method Room Air Pulse Ox (%) 90 Pulse Rate (60-100 beats/min) 82 Reported Symptoms Increased Work of Breathing 2nd minute Oxygen Delivery Method Room Air Pulse Ox (%) 90 Pulse Rate (60-100 beats/min) 52 L 3rd minute Oxygen Delivery Method Room Air Pulse Ox (%) 90 Pulse Rate (60-100 beats/min) 66 4th minute Oxygen Delivery Method Room Air Pulse Ox (%) 92 Pulse Rate (60-100 beats/min) 66 5th minute Oxygen Delivery Method Room Air Pulse Ox (%) 93 Pulse Rate (60-100 beats/min) 59 L 6th minute Oxygen Delivery Method Room Air Pulse Ox (%) 95 Pulse Rate (60-100 beats/min) 59 L Post-test Oxygen Delivery Method Room Air Pulse Ox (%) 96 Pulse Rate (60-100 beats/min) 58 L Dyspnea Wayne Scale (0-10) 2 Exertion Wayne Scale (6-20) 15 Full Laps Walked 3 Partial Lap, Number of Tiles Walked 0 Total Distance Walked (ft) 177 Interpretation Interpretation: The patient ambulated 177 feet over the course of 6 minutes beginning on room air with the use of a cane. Pretesting oxygen saturation was noted to be 93% on room air. With ambulation, the lilibeth oxygen saturation was 90%. Although there was evidence of impaired walk distance, there was no significant exertional oxygen desaturation. Recommendations Recommendations: There is no indication for the use of supplemental oxygen at this time.
== END 2021-11-10 23:59 | disposition home or self-care (01) ==
LOC: PSN 12:17
PROVIDERS: PCP Family Medicine; Referring Provider Internal Medicine Critical Care Medicine; Visit Provider Internal Medicine Critical Care Medicine
DX: R94.2 Abnormal results of pulmonary function studies (principal); R91.8 Other nonspecific abnormal finding of lung field
CPT/HCPCS: 71250; 94618

== ENCOUNTER → 2022-05-07 | Outpatient (CLI) | payer MEDICARE, MEDICAID, SELFPAY ==
--- NOTE | 2022-05-07 14:49 | CT_ITS ---
STUDY: CT CHEST WITHOUT CONTRAST REASON FOR EXAM: Male, 66 years old. Follow lung mass RADIATION DOSAGE (If Supplied By Facility): CTDIvol = ( 12.78 ) mGy, DLP = ( 469.53 ) mGycm TECHNIQUE: Transaxial imaging was performed without the administration of intravenous contrast material. Multiplanar coronal and sagittal images were reformatted. Individualized dose optimization techniques were used for this CT. COMPARISON: Comparison is made with prior examination dated 11/10/2021. FINDINGS: CHEST Hyperinflation. Diffuse emphysematous changes. Stable reticular nodular pattern in the right lung apex with focal bronchiectasis suggestive of chronic fibrosis. This is unchanged. There is no demonstrated pleural abnormality. Sternal cerclage wires and vascular clips are present from a prior sternotomy and coronary artery bypass graft procedure (CABG). There are calcifications of the coronary arteries. A stent is seen at the origin of the left subclavian artery. There are multiple small lymph nodes within the mediastinum, which are normal in size and morphology most compatible with reactive lymph hyperplasia. Normal hilar regions. Normal unenhanced pulmonary arteries. There is atherosclerotic calcification of the aortic arch with tortuosity and elongation of the aortic arch and descending thoracic aorta. Normal osseous structures. Small gallstones. Stable 2.8 cm cyst in the upper pole of the right kidney. CT/Chest without Contrast IMPRESSION: Stable examination. Electronically Signed: Peter Soto MD at 9:44 EDT ,
== END | disposition home or self-care (01) ==
LOC: CT 14:48
PROVIDERS: PCP Family Medicine; Referring Provider Nurse Practitioner Acute Care; Visit Provider Nurse Practitioner Acute Care
DX: R91.8 Other nonspecific abnormal finding of lung field (principal)
CPT/HCPCS: 71250

== ENCOUNTER → 2022-06-19 | Outpatient (CLI) | payer MEDICARE, MEDICAID, SELFPAY ==
[2022-06-19 13:29] VITALS: PULSE 56; PULSE 63; PULSE 64; PULSE 68; PULSE 74; O2SAT 91; O2SAT 92; O2SAT 93; O2SAT 94; O2SAT 96
--- NOTE | 2022-06-19 13:31 | CPS ---
Patient has had a stroke in the past, and only says yes to questions or talking in general. The patient normally does not walk far per . Patient only walked for 3 minutes and 2 laps because that is more than the patient normally walks on a daily basis. Ramirez SADLER
--- NOTE | 2022-06-21 13:17 | WT_ITS ---
PSN 6 Minute Walk Test 6 Minute Walk Test 6 Minute Walk Test: 6 Minute Walk Test PSN:6-Minute Walk Test Start: 06/19/22 13:29 Freq: Status: Active Protocol: RESP.6MINW Document 06/19/22 13:29 (Rec: 06/19/22 13:35 JR [id number]) 6 Minute Walk Test Date Performed 06/19/22 Time Performed 13:00 Height 5 ft 9 in Weight: 195 lb Weight in Pounds 195.[address]: Soraya Pate TAPPING MACHINE OPERATOR Assistive device used: None Pre-test Oxygen Delivery Method Room Air Pulse Ox (%) 94 Pulse Rate (60-100 beats/min) 56 L Dyspnea Wayne Scale (0-10) 0 Exertion Wayne Scale (6-20) 6 1st minute Oxygen Delivery Method Room Air Pulse Ox (%) 93 Pulse Rate (60-100 beats/min) 64 2nd minute Oxygen Delivery Method Room Air Pulse Ox (%) 91 Pulse Rate (60-100 beats/min) 74 3rd minute Oxygen Delivery Method Room Air Pulse Ox (%) 92 Pulse Rate (60-100 beats/min) 68 Dyspnea Wayne Scale (0-10) 0 Exertion Wayne Scale (6-20) 13 Post-test Oxygen Delivery Method Room Air Pulse Ox (%) 96 Pulse Rate (60-100 beats/min) 63 Full Laps Walked 2 Partial Lap, Number of Tiles Walked 0 Total Distance Walked (ft) 118 06/19/22 13:31 Cardiopulmonary Services by Eliana Alba Patient has had a stroke in the past, and only says yes to questions or talking in general. The patient normally does not walk far per . Patient only walked for 3 minutes and 2 laps because that is more than the patient normally walks on a daily basis. Ramirez TAKER OFF [employer]YING KILN Initialized on 06/19/22 13:31 - END OF NOTE Interpretation Interpretation: The patient ambulated 118 feet over the course of 3 minutes beginning on room air. The patient ambulated with the assistance of a cane. He was only able to complete 3 of the 6 minutes of the test. Pretesting oxygen saturation was noted to be 94% on room air. With ambulation, the lilibeth oxygen saturation was 91%. Recommendations Recommendations: There is no indication for the use of supplemental oxygen at this time. However, only limited data could be obtained from this test as the patient only ambulated 3 out of the 6 minutes.
== END | disposition home or self-care (01) ==
LOC: PSN 12:48
PROVIDERS: PCP Family Medicine; Referring Provider Nurse Practitioner Acute Care; Visit Provider Nurse Practitioner Acute Care
DX: J96.01 Acute respiratory failure with hypoxia (principal)
CPT/HCPCS: 94618

== ENCOUNTER 2022-08-16 10:00 | Observation (INO) | payer MEDICARE, MEDICAID, SELFPAY ==
[2022-08-16] VITALS (11 sets, daily range): BP systolic 135–158; BP diastolic 56–75; PULSE 44–74; RESP 14–18; TEMP 36.3–37.2; O2SAT 92–98; BMI 28.8
--- NOTE | 2022-08-16 10:23 | EKG12_ITS ---
Test Reason : LOW HR Blood Pressure : / mmHG Vent. Rate : 049 BPM Atrial Rate : 049 BPM P-R Int : 252 ms QRS Dur : 092 ms QT Int : 492 ms P-R-T Axes : 056 -41 167 degrees QTc Int : 444 ms Sinus bradycardia with 1st degree A-V block Left axis deviation Inferior infarct , age undetermined Abnormal ECG Confirmed by REYNA WHITMAN, MARIBEL ([id number]), international editorial producer KHRIS HOPKINS ([id number]) on 08/20/2022 12:25:27 PM Referred By: Confirmed By:MARIBEL ORELLANA MD
[2022-08-16 10:31] LABS: Absolute Lymphocyte Count 2.26 X10^3/uL (0.83-4.51); Absolute Neutrophil Count 6.3 X10^3/uL (2.0-7.7); Basophil# 0.08 X10^3/uL; Basophil% 0.8 % (0-1); Eosinophil# 0.65 X10^3/uL; Eosinophils% 6.3 % (0-5); Hemoglobin 13.6 g/dL (13.0-16.5); Lymphocyte # 2.26 X10^3/ul (0.83-4.51); Lymphocyte % 21.8 % (19-41); Mean Corp Hgb Conc 32.4 g/dL (32-36); Mean Corpuscular Hgb 29.3 pg (27.0-32.0); Mean Corpuscular Volume 90.5 fL (80-94); Mean Platelet Vol. 10.9 fl (6.2-12.0); Monocyte# 1.03 X10^3/uL; Monocyte% 9.9 % (0-10); NRBC Flagged by Analyzer 0 % (0-5); Neutrophil # 6.27 X10^3/uL (2.7-7.7); Neutrophil % 60.3 % (47-70); Platelet Count 302 K/mm3 (150-450); RBC Distribution Width CV 13.2 % (11.6-14.6); Red Blood Count 4.64 M/mm3 (4.6-6.2); White Blood Count 10.4 K/mm3 (4.4-11.0)
[2022-08-16 10:44] LABS: Anion Gap 6 (5-15); BUN 15 mg/dL (7-18); BUN/Creat Ratio 11.8 RATIO (10-20); Chloride 111 mmol/L (98-107); Creatinine, Serum 1.27 mg/dL (0.70-1.30); EST Glomerular Filtration Rate 60 mL/min (>60); Est Glom Filt Rate - Afr Amer 73 mL/min (>60); Estimated Creatinine Clearance 56.44 ml/min; Glucose 131 mg/dL (74-106); Potassium 4.1 mmol/L (3.5-5.1); Sodium Level 143 mmol/L (136-145)
--- NOTE | 2022-08-16 10:55 | RAD_ITS ---
STUDY: X-RAY CHEST REASON FOR EXAM: Male, 67 years old. Cough. Shortness of breath. TECHNIQUE: AP and lateral views of the chest. COMPARISON: Comparison is made with prior study dated 08/16/2021. FINDINGS: EKG electrodes are seen. Hyperinflation. There is no demonstrated pleural abnormality. Sternal cerclage wires and vascular clips are present from a prior sternotomy and coronary artery bypass graft procedure (CABG). Normal mediastinum and ying. There is prominence of the pulmonary hilar arteries without peripheral pulmonary vascular congestion, suggesting pulmonary hypertension. There is atherosclerotic calcification of the aortic arch with tortuosity. Normal visualized thoracic spine. There is degenerative osteoarthritis of the bilateral shoulders. There is no demonstrated abnormality of the visualized soft tissue structures of the upper abdomen. RAD/Chest PA and Lateral IMPRESSION: Hyperinflation. No acute abnormality is seen. Electronically Signed: Peter Soto MD at 11:09 EST ,
--- NOTE | 2022-08-16 11:08 | EDS_ITS ---
HPI History of Present Illness Chief Complaint: Shortness of Breath Informant: spouse/S.O. Narrative Narrative: Presents here with spouse for evaluation. Spouse providing information due to patient having dysphasia from a stroke in 2017. Reported stroke affecting the right side. He has residual deficits primary right upper extremity mild right lower extremity he ambulates with a cane. History of COPD no home continuous oxygen. He wears a CPAP at night with oxygenation. Remote tobacco. Reported over the past 3 weeks progressive dyspnea observations where he would gasp for air. He has occasional cough however spouse states he has allergies. There is been no fevers. He is vaccinated for COVID with boosters. Denies COVID infections in the past. She had noted this at times even with sitting where he would gasp. She reported he was hospitalized 3 times last year for dyspnea 1 time had a pneumothorax. Prior similar symptoms: Yes PFSH PFS Medical History Anemia Aphasia as late effect of stroke Atherosclerosis of coronary artery without angina pectoris Carotid artery disease Cerebral arterial aneurysm Chronic atrial fibrillation Confusion Debility Dysphagia History of stroke HTN (hypertension) Hyperlipidemia Left acute arterial ischemic stroke, MCA (middle cerebral artery) (10/31/16) detention current use of amiodarone Lower resp. tract infection Mixed obstructive and restrictive ventilatory defect Respiratory failure Sepsis Smoker Stroke/cerebrovascular accident Home Medications famotidine 20 mg tablet 20 mg PO QHS PRN PRN Gastric Reflux 12/21/16 [History Last Taken 08/15/22] baclofen 10 mg tablet 5 mg PO TID 02/05/17 [Rx Last Taken 08/16/22] multivitamin,[id number] (Complete Multivitamin tablet) 1 tab PO DAILY vitamin 12/04/18 [History Last Taken 08/16/22] amlodipine 10 mg tablet 5 mg PO BID blood pressure #30 tabs 04/19/20 [Rx Last Taken 08/16/22] apixaban 5 mg tablet 5 mg PO BID blood thinner #60 tabs 04/19/20 [Rx Last Taken 08/16/22] atorvastatin 40 mg tablet 40 mg PO QHS cholesterol #30 tabs 04/19/20 [Rx Last Taken 08/15/22] clopidogrel 75 mg tablet 75 mg PO DAILY anti platelet #30 tabs 04/19/20 [Rx Last Taken 08/16/22] potassium chloride 10 mEq tablet,extended release 20 meq PO TID potassium #90 tabs 04/19/20 [Rx Last Taken 08/16/22] ezetimibe 10 mg tablet 10 mg PO DAILY 04/22/21 [History Last Taken 08/16/22] escitalopram oxalate 20 mg tablet 20 mg PO DAILY antidepressant 06/11/21 [History Last Taken 08/16/22] menthol 0.44 %-zinc oxide 20.6 % topical ointment (Calmoseptine) 1 applic topical TID PRN Diaper Rash #0 grams 06/17/21 [Rx Last Taken Unknown] amiodarone 100 mg tablet 100 mg PO DAILY HEART 07/11/21 [History Last Taken 08/16/22] lorazepam 0.5 mg tablet 0.5 mg PO BID anxiety #10 tabs 08/23/21 [Rx Last Taken 08/16/22] hydrochlorothiazide 12.5 mg tablet 6.25 mg PO DAILY diuretic #90 tabs 03/12/22 [Rx Last Taken 08/16/22] metoprolol tartrate 25 mg tablet 12.5 mg PO BID #30 tabs 04/16/22 [Rx Last Taken 08/16/22] albuterol sulfate 90 mcg/actuation aerosol inhaler (Ventolin HFA) 2 inh inh alation Q4H PRN shortness of breath or wheezing #18 grams 05/29/22 [Rx Last Taken Unknown] fluticasone propionate 50 mcg/actuation nasal spray,suspension (Flonase Allergy Relief) 2 spray intranasal DAILY #16 grams 05/29/22 [Rx Last Taken 08/15/22] IV poll #1 ea 08/07/22 [Rx Last Taken Unknown] buspirone 10 mg tablet 10 mg PO TID ANXIETY 08/16/22 [History Last Taken 08/16/22] clotrimazole-betamethasone 1 %-0.05 % topical cream 1 applic topical 4X/DAY PRN REDNESS 08/16/22 [History Last Taken 08/16/22] trazodone 100 mg tablet 100 mg PO QHS SLEEP 08/16/22 [History Last Taken 08/15/22] trazodone 50 mg tablet 50 mg PO QHS DEPRESSION 08/16/22 [History Last Taken 08/15/22] Allergy/AdvReac Type Severity Reaction Status Date / Time azithromycin Allergy Intermediate Hives Verified 08/16/22 10:04 [From Zithromax Z-Dayo] lisinopril Allergy Intermediate Hives and Verified 08/16/22 10:04 diarrhea Sulfa (Sulfonamide Allergy Hives Verified 08/16/22 10:04 Antibiotics) Family History Mother Diabetes Heart disease Father AAA (abdominal aortic aneurysm) Heart disease Surgical History History of gastrostomy tube placement (11/07/16) History of tracheostomy (11/07/16) 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 Social History household members: spouse Smoking Status: Former smoker how long ago did patient quit smokin years ago, 2ppd second hand exposure: Yes alcohol intake: never substance use type: does not use caffeine: No ROS ROS ED Constitutional Constitutional ED: Denies chills, fever(s) or sweats Eyes Eyes: Denies change in vision ENT ENT ED: Denies dysphagia or sore throat Cardiovascular Cardiovascular: Denies chest pain, leg edema, palpitations or racing heartbeat Respiratory/Chest Respiratory/Chest: Reports cough, dyspnea and dyspnea on exertion Gastrointestinal Gastrointestinal: Denies abdominal pain, diarrhea, nausea or vomiting Genitourinary Genitourinary ED: Denies dysuria, hematuria or urinary frequency Musculoskeletal Musculoskeletal: Denies back pain, extremity pain or neck pain Integumentary Denies rash or wounds Neurologic Neurologic: Denies headache(s), paresthesias or weakness EXAM Physical Exam Const Vital Signs: 08/16/22 10:02 08/16/22 10:12 08/16/22 10:12 Temperature 97.4 F L 97.4 F L Temperature Source Temporal Temporal Pulse Rate 50 L 53 L 51 L Respiratory Rate 16 14 14 Respiratory Effort Respiratory Pattern Blood Pressure 156/56 H 157/75 H 157/75 H Blood Pressure Mean 89 102 102 Pulse Ox 94 95 92 Oxygen Delivery Method Room Air Room Air Room Air 08/16/22 10:14 08/16/22 11:23 08/16/22 12:31 Temperature 98.1 F Temperature Source Temporal Pulse Rate 51 L 44 L Respiratory Rate 17 18 Respiratory Effort Normal Non-Labored Respiratory Pattern Normal Blood Pressure 151/72 H 148/57 H Blood Pressure Mean 98 87 Pulse Ox 93 92 Oxygen Delivery Method Room Air Room Air Room Air 08/16/22 12:31 Temperature Temperature Source Pulse Rate 44 L Respiratory Rate 17 Respiratory Effort Respiratory Pattern Blood Pressure 148/57 H Blood Pressure Mean 87 Pulse Ox 92 Oxygen Delivery Method Room Air Positive well nourished and well developed Constitutional Narrative: Chronic dysarthria, unable to communicate. General Appearance ED: well developed and NAD HEENT Reports moist mucous membranes normocephalic and atraumatic Eyes PERRL, EOMs intact bilaterally and conjunctivae normal General Eye ED: Yes normal appearance of both eyes Neck no lymphadenopathy and supple General: Negative for tenderness Chest Wall Chest: Negative for tenderness Resp normal respiratory effort and normal air movement Effort and Inspection: symmetric chest movement; Negative for respiratory distress Cardio regular rate, regular rhythm and no murmurs Rate: bradycardia Peripheral Pulses: pulses 2+ throughout GI normal to inspection, nondistended, normoactive bowel sounds and non-tender Palpation: Negative for guarding or rebound tenderness present Back/Spine no CVA tenderness and no thoracic nor lumbar tenderness Extremity normal to inspection General Extremety ED: Negative for edema or tenderness General Extremity: Negative for edema Neuro Neuro Narrative: Residual weakness from her right upper extremity there is mild right lower extremity weakness. Sensorium / Orientation: awake and alert Skin no rashes or lesions noted and no wounds MDM MDM MDM Narrative Medical decision making narrative: Patient worse the over the past 3 weeks mild cough. He was 94% on room air x92%. He is in no respiratory distress. Differentials COPD exacerbation, pneumonia, or Covid infection. With increasing dyspnea and cough, no fevers, additional differential would be PE. I will obtain a D-dimer. Two-view chest x-ray interpreted by myself no pneumonia, posterior pleural effusion noted. In the interim, reviewed records with spouse concerns for 3 admissions last year. Admission August 2021 for concerns for speech change with a stroke history of memory MRI. He was admitted June 2021 x2 for pneumothorax after biopsy with a recurrent 1. Prior to that had a April 2021 admission for multilobe pneumonia. 1210: Final read per radiology shows no acute process labs are stable D-dimer negative therefore lower concerns for PE. He is in no respiratory distress. Patient ambulate with a pulse ox down to 88% reported he appeared dyspneic. Improved with rest. I will start steroids. Will speak with hospitalist for admission. Lab Data Attestation: I reviewed the patient's lab results. Labs: Laboratory Results - last 24 hr 08/16/22 08/16/22 08/16/22 10:15 10:15 10:15 WBC 10.4 RBC 4.64 Hgb 13.6 Hct 42.0 MCV 90.5 MCH 29.3 MCHC 32.4 RDW Std Deviation 43.0 RDW Coeff of Makayla 13.2 Plt Count 302 MPV 10.9 Immature Gran % (Auto) 0.900 Neut % (Auto) 60.3 Lymph % (Auto) 21.8 [place] % (Auto) 9.9 Eos % (Auto) 6.3 H Baso % (Auto) 0.8 Absolute Neuts (auto) 6.3 Absolute Lymphs (auto) 2.26 Nucleated RBC % 0 D-Dimer Quant (PE/DVT) 0.31 Sodium 143 Potassium 4.1 Chloride 111 H Carbon Dioxide 26.0 Anion Gap 6 BUN 15 Creatinine 1.27 Estim Creat Clear Calc 56.44 Est GFR (MDRD) Af Amer 73 Est GFR (MDRD) Non-Af 60 BUN/Creatinine Ratio 11.8 Glucose 131 H Calcium 9.0 Radiography Diagnostic Testing: Clinical Impression(s) from Imaging Studies Chest X-Ray 08/16/22 10:55 IMPRESSION: Hyperinflation. No acute abnormality is seen. Electronically Signed: Peter Soto MD at 11:09 EST , EKG Initial EKG: Attestation: I personally reviewed and interpreted this EKG as follows: Comments: Sinus rate of 49, first-degree AV block, no ST or T wave changes. Discharge Plan Disposition Disposition: Acute Care Hospital [facility] Discharge Date/Time: 08/16/22 13:01
[2022-08-16 11:38] LABS: D-Dimer Quantitative (DVT/PE) 0.31 FEU/ug/m (0.27-0.49)
[2022-08-16] MEDS: MethylPREDNISolone 125 MG/2 ML Vial 60 MG IV (12:30)
--- NOTE | 2022-08-16 13:47 | PCM.HP.STD ---
HPI - General General Date of Admission: 08/16/22 Date of Service: 08/16/22 Chief Complaint: Hypoxia HPI Narrative ROBERTA ZEE, is a 67-year-old male with history of coronary artery disease, atrial fibrillation, left MCA stroke in 2016 with residual dysphagia and right-sided deficit, tobacco use who presented to [facility] 08/16/2022 due to shortness of breath. Does reportedly have a history of COPD not on continuous home O2 but does wear CPAP at night with O2. Over the past 3 weeks he has had progressive dyspnea and at times gasps for air, occasional coughing spells. Did have a previous pneumothorax in June 2021 after biopsy with 1 recurrence. He was 94% on room air initially but dropped down to 88% and was dyspneic with ambulation. D-dimer negative, patient given steroids and hospitalist consulted for admission. Patient evaluated resting comfortably while sitting on room air currently getting a breathing treatment and being shown how to use incentive spirometry. History obtained largely from his given his difficulty with aphasia. He has been having the increased shortness of breath with more difficulty getting deep breaths on ambulation and she checked his pulse ox at home and it was 85 to 86% when walking. Has not really had significant cough, no fevers, no other symptoms reported. Did also note inflammation of the glans of his penis that she would like addressed as well. 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 tract infection Mixed obstructive and restrictive ventilatory defect Respiratory failure Sepsis Smoker Stroke/cerebrovascular accident Home Medications famotidine 20 mg tablet 20 mg PO QHS PRN PRN Gastric Reflux 12/21/16 [History Last Taken 08/15/22] baclofen 10 mg tablet 5 mg PO TID 02/05/17 [Rx Last Taken 08/16/22] multivitamin,[id number]-[id number] (Complete Multivitamin tablet) 1 tab PO DAILY vitamin 12/04/18 [History Last Taken 08/16/22] amlodipine 10 mg tablet 5 mg PO BID blood pressure #30 tabs 09/15/20 [Rx Last Taken 08/16/22] apixaban 5 mg tablet 5 mg PO BID blood thinner #60 tabs 04/19/20 [Rx Last Taken 08/16/22] atorvastatin 40 mg tablet 40 mg PO QHS cholesterol #30 tabs 04/19/20 [Rx Last Taken 08/15/22] clopidogrel 75 mg tablet 75 mg PO DAILY anti platelet #30 tabs 04/19/20 [Rx Last Taken 08/16/22] potassium chloride 10 mEq tablet,extended release 20 meq PO TID potassium #90 tabs 04/19/20 [Rx Last Taken 08/16/22] ezetimibe 10 mg tablet 10 mg PO DAILY 04/22/21 [History Last Taken 08/16/22] escitalopram oxalate 20 mg tablet 20 mg PO DAILY antidepressant 06/11/21 [History Last Taken 08/16/22] menthol 0.44 %-zinc oxide 20.6 % topical ointment (Calmoseptine) 1 applic topical TID PRN Diaper Rash #0 grams 06/17/21 [Rx Last Taken Unknown] amiodarone 100 mg tablet 100 mg PO DAILY HEART 07/11/21 [History Last Taken 08/16/22] lorazepam 0.5 mg tablet 0.5 mg PO BID anxiety #10 tabs 08/23/21 [Rx Last Taken 08/16/22] hydrochlorothiazide 12.5 mg tablet 6.25 mg PO DAILY diuretic #90 tabs 03/12/22 [Rx Last Taken 08/16/22] metoprolol tartrate 25 mg tablet 12.5 mg PO BID #30 tabs 04/16/22 [Rx Last Taken 08/16/22] albuterol sulfate 90 mcg/actuation aerosol inhaler (Ventolin HFA) 2 inh inhalation Q4H PRN shortness of breath or wheezing #18 grams 05/29/22 [Rx Last Taken Unknown] fluticasone propionate 50 mcg/actuation nasal spray,suspension (Flonase Allergy Relief) 2 spray intranasal DAILY #16 grams 05/29/22 [Rx Last Taken 08/15/22] IV poll #1 ea 08/07/22 [Rx Last Taken Unknown] buspirone 10 mg tablet 10 mg PO TID ANXIETY 08/16/22 [History Last Taken 08/16/22] clotrimazole-betamethasone 1 %-0.05 % topical cream 1 applic topical 4X/DAY PRN REDNESS 08/16/22 [History Last Taken 08/16/22] trazodone 100 mg tablet 100 mg PO QHS SLEEP 08/16/22 [History Last Taken 08/15/22] trazodone 50 mg tablet 50 mg PO QHS DEPRESSION 08/16/22 [History Last Taken 08/15/22] Allergy/AdvReac Type Severity Reaction Status Date / Time azithromycin Allergy Intermediate Hives Verified 08/16/22 10:04 [From Zithromax Z-Dayo] lisinopril Allergy Intermediate Hives and Verified 08/16/22 10:04 diarrhea Sulfa (Sulfonamide Allergy Hives Verified 08/16/22 10:04 Antibiotics) Family History Mother Diabetes Heart disease Father AAA (abdominal aortic aneurysm) Heart disease Surgical History History of gastrostomy tube placement (11/07/16) History of tracheostomy (11/07/16) 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 Social History household members: spouse Smoking Status: Former smoker how long ago did patient quit smokin years ago, 2ppd second hand exposure: Yes alcohol intake: never substance use type: does not use caffeine: No ROS Constitutional Constitutional: Denies change in weight, chills or fever(s) Eyes Eyes: Denies change in vision ENT HEENT: Denies headache(s) Cardiovascular Cardiovascular: Denies chest pain or palpitations Respiratory/Chest Respiratory/Chest: Reports shortness of breath with exertion; Denies productive cough or shortness of breath at rest Gastrointestinal Gastrointestinal: Reports other Details: denies changes in bowel or bladder ; Denies abdominal pain Genitourinary Genitourinary: Reports other Details: denies changes in urination Musculoskeletal Musculoskeletal: Denies joint pain Neurologic Neurologic: Reports other Details: Residual right-sided weakness from previous stroke Psychiatric Psychiatric: Denies anxiety Hematologic/Lymphatic Hematologic/Lymphatic: Denies easy bleeding Allergic/Immunologic Allergic/Immunologic: Reports other Details: Redness of glans of penis Vital Signs Vital Signs Vital Signs: 08/16/22 10:02 08/16/22 10:12 08/16/22 10:12 Temperature 97.4 F L 97.4 F L Temperature Source Temporal Temporal Pulse Rate 50 L 53 L 51 L Respiratory Rate 16 14 14 Respiratory Effort Respiratory Pattern Blood Pressure 156/56 H 157/75 H 157/75 H Blood Pressure Mean 89 102 102 Blood Pressure Source Blood Pressure Position Blood Pressure Location Pulse Ox 94 95 92 Oxygen Delivery Method Room Air Room Air Room Air 08/16/22 10:14 08/16/22 11:23 08/16/22 12:31 Temperature 98.1 F Temperature Source Temporal Pulse Rate 51 L 44 L Respiratory Rate 17 18 Respiratory Effort Normal Non-Labored Respiratory Pattern Normal Blood Pressure 151/72 H 148/57 H Blood Pressure Mean 98 87 Blood Pressure Source Blood Pressure Position Blood Pressure Location Pulse Ox 93 92 Oxygen Delivery Method Room Air Room Air Room Air 08/16/22 12:31 08/16/22 13:23 Temperature 97.9 F Temperature Source Oral Pulse Rate 44 L 50 L Respiratory Rate 17 18 Respiratory Effort Respiratory Pattern Blood Pressure 148/57 H 135/57 H Blood Pressure Mean 87 83 Blood Pressure Source Monitor Blood Pressure Position Semi-Fowlers Blood Pressure Location Left Arm Pulse Ox 92 98 Oxygen Delivery Method Room Air Room Air Weight Weight: 88.451 kg Body Mass Index (BMI) 28.8 Physical Exam Const alert and no apparent distress HEENT normocephalic and head/scalp atraumatic Eyes Eyes Narrative: EOM grossly intact, anicteric Neck supple Resp normal respiratory effort and clear to auscultation bilaterally Cardio regular rate and regular rhythm GI soft to palpation, non-tender and non-distended Extremity Extremity Narrative: No edema appreciated Skin Skin Narrative: Had well-circumscribed appearing erythematous lesion on glans of penis, foreskin completely retractable, no drainage, no urethral discharge or other abnormality noted Neuro Neuro Narrative: Expressive aphasia, persistent right-sided limb deficit as well Psych Psych Narrative: Cooperative Results Lab / Micro Data Result Diagrams: 08/16/22 10:15 08/16/22 10:15 Labs: Laboratory Results - last 24 hr 08/16/22 10:15: WBC 10.4, RBC 4.64, Hgb 13.6, Hct 42.0, MCV 90.5, MCH 29.3, MCHC 32.4, RDW Std Deviation 43.0, RDW Coeff of Makayla 13.2, Plt Count 302, MPV 10.9, Immature Gran % (Auto) 0.900, Neut % (Auto) 60.3, Lymph % (Auto) 21.8, Dickinson % (Auto) 9.9, Eos % (Auto) 6.3 H, Baso % (Auto) 0.8, Absolute Neuts (auto) 6.3, Absolute Lymphs (auto) 2.26, Nucleated RBC % 0 08/16/22 10:15: Sodium 143, Potassium 4.1, Chloride 111 H, Carbon Dioxide 26.0, Anion Gap 6, BUN 15, Creatinine 1.27, Estim Creat Clear Calc 56.44, Est GFR (MDRD) Af Amer 73, Est GFR (MDRD) Non-Af 60, BUN/Creatinine Ratio 11.8, Glucose 131 H, Calcium 9.0 08/16/22 10:15: D-Dimer Quant (PE/DVT) 0.31 Micro: Microbiology 08/16/22 10:15 Nasal Secretion SARS-CoV-2 Antigen (Rapid) - Final Radiology Impression Chest X-Ray 08/16/22 10:55 IMPRESSION: Hyperinflation. No acute abnormality is seen. Electronically Signed: Peter Soto MD at 11:09 EST , Assessment & Plan Assessment/Plan (1) Hypoxia: PLAN: Plan #Hypoxia secondary to acute exacerbation of COPD/history of DARON 4 L of O2 at bedtime Chest x-ray with no acute abnormality seen COVID-negative, will obtain respiratory panel Steroids, nebs, cefdinir due to azithromycin allergy Incentive spirometry CPAP nightly Had walk test in June with lowest sat 91% was only able to complete 3 minutes of the 6-minute test Follows with Dr. Mcgrath as an outpatient Pulmonary function studies completed in June 2018 demonstrate the presence of an irreversible severe mixed ventilatory defect with symmetric reduction in diffusing capacity.? #History of atrial fibrillation Presently sinus with heart rate in low 50s and first-degree AV block Continue Eliquis Continue amiodarone Adding holding parameters to metoprolol #History of coronary artery disease s/p cabg 2017 Continue Plavix Continue statin #History of left MCA stroke in 2017 Residual deficits PT/OT Continue Plavix Continue Eliquis Continue baclofen #Balanitis Fully retractable foreskin Has been using a combination antifungal steroid topically for 1 month with no improvement Has also failed conservative local hygiene measures We will add miconazole topical, if no improvement will need outpatient urology eval #DVT ppx: On Eliquis Felecia Burns MD Charges/Coding Visit Charges Inpatient E&M: 93283 Init Hosp L2
[2022-08-16] MEDS: Ipratropium/Albuterol Sulfate 3 ML AMPUL.NEB INHALATION ×2 (15:37→19:46)
[2022-08-16 16:49] LABS: Color, Urine Yellow (Yellow); Glucose, Dipstick Normal (Normal); Ketone-Dipstick Negative (Negative); Leukocyte Esterase-Dipstick Negative /ul (Negative); Nitrite-Dipstick Negative (Negative); Occult Blood-Urine Negative /ul (Negative); Protein-Dipstick 30 mg/dl (Negative); Urine Bilirubin Dipstick Negative (Negative); Urine Clarity Clear (Clear); Urine Urobilinogen Normal (Normal); Urine pH 6.5 (5.0 - 8.0)
[2022-08-16] MEDS: Atorvastatin Calcium 40 MG Tablet PO (21:58)
[2022-08-16] MEDS: Cefdinir 300 MG Capsule PO (21:58)
[2022-08-16] MEDS: Metoprolol Tartrate 25 MG Tablet 12.5 MG PO (21:58)
[2022-08-16] MEDS: Baclofen 10 MG Tablet 5 MG PO (21:59)
[2022-08-16] MEDS: busPIRone 5 MG Tablet 10 MG PO (21:59)
[2022-08-16] MEDS: APIXABAN 5 MG TABLET PO (22:00)
[2022-08-16] MEDS: Miconazole Nitrate Cream 1 APPLIC TOPICAL (22:01)
[2022-08-16] MEDS: traZODone 50 MG Tablet PO (22:03)
[2022-08-16] MEDS: traZODone 100 MG Tablet PO (22:03)
[2022-08-17] VITALS (9 sets, daily range): BP systolic 102–150; BP diastolic 62–67; PULSE 60–84; RESP 16–23; TEMP 36.8–36.9; O2SAT 74–99
[2022-08-17] MEDS: Baclofen 10 MG Tablet 5 MG PO ×2 (05:25→13:33)
[2022-08-17] MEDS: busPIRone 5 MG Tablet 10 MG PO ×2 (05:25→13:33)
[2022-08-17 06:31] LABS: Absolute Lymphocyte Count 1.31 X10^3/uL (0.83-4.51); Absolute Neutrophil Count 10.9 X10^3/uL (2.0-7.7); Basophil# 0.02 X10^3/uL; Basophil% 0.2 % (0-1); Hematocrit 38.9 % (40-54); Hemoglobin 13.3 g/dL (13.0-16.5); Lymphocyte # 1.31 X10^3/ul (0.83-4.51); Lymphocyte % 10.5 % (19-41); Mean Corp Hgb Conc 34.2 g/dL (32-36); Mean Corpuscular Hgb 30.2 pg (27.0-32.0); Mean Corpuscular Volume 88.2 fL (80-94); Mean Platelet Vol. 10.8 fl (6.2-12.0); Monocyte# 0.15 X10^3/uL; Monocyte% 1.2 % (0-10); NRBC Flagged by Analyzer 0.2 % (0-5); Neutrophil # 10.93 X10^3/uL (2.7-7.7); Neutrophil % 87.1 % (47-70); Platelet Count 268 K/mm3 (150-450); RBC Distribution Width CV 13.1 % (11.6-14.6); RBC Distribution Width SD 42.3 fl (35.1-43.9); Red Blood Count 4.41 M/mm3 (4.6-6.2); White Blood Count 12.5 K/mm3 (4.4-11.0)
[2022-08-17 06:58] LABS: ALB/GLOB Ratio 0.8 RATIO (0.9-2.4); AST(SGOT) 14 U/L (15-37); Alanine Aminotransfer ALT/SGPT 26 U/L (16-61); Albumin, Serum 3.2 g/dL (3.2-5.0); Alkaline Phosphatase 107 U/L (45-117); Anion Gap 9 (5-15); BUN 18 mg/dL (7-18); BUN/Creat Ratio 15.8 RATIO (10-20); Calcium,Total 8.7 mg/dL (8.5-10.1); Chloride 107 mmol/L (98-107); Creatinine, Serum 1.14 mg/dL (0.70-1.30); EST Glomerular Filtration Rate 68 mL/min (>60); Est Glom Filt Rate - Afr Amer 82 mL/min (>60); Estimated Creatinine Clearance 62.88 ml/min; Globulin 3.9 g/dL (2.2-4.2); Glucose 139 mg/dL (74-106); Protein, Total 7.1 g/dL (6.4-8.2); Sodium Level 140 mmol/L (136-145)
[2022-08-17] MEDS: Ipratropium/Albuterol Sulfate 3 ML AMPUL.NEB INHALATION ×2 (07:30→10:44)
[2022-08-17] MEDS: Cefdinir 300 MG Capsule PO (08:29)
[2022-08-17] MEDS: Fluticasone 0.05% 1 SPRAY NASAL.SRY 2 SPRAY NASAL (08:29)
[2022-08-17] MEDS: Amiodarone 200 MG Tablet 100 MG PO (08:29)
[2022-08-17] MEDS: Metoprolol Tartrate 25 MG Tablet 12.5 MG PO (08:30)
[2022-08-17] MEDS: Clopidogrel Bisulfate 75 MG Tablet PO (08:30)
[2022-08-17] MEDS: Escitalopram Oxalate 20 MG Tablet PO (08:30)
[2022-08-17] MEDS: hydroCHLOROthiazide 12.5mg 6.25 MG PO (08:30)
[2022-08-17] MEDS: Ezetimibe 10 MG Tablet PO (08:30)
[2022-08-17] MEDS: APIXABAN 5 MG TABLET PO (08:30)
[2022-08-17] MEDS: Miconazole Nitrate Cream 1 APPLIC TOPICAL (08:31)
--- NOTE | 2022-08-17 10:17 | CASEMGMT ---
DIANE CM: Call received from [facility]. Pt is active with services including [employer] (14 per week), medical alert thru [employer], and a home health aid 41.5 hours/week. Pt's embedded case manager is Cathy Siu (phone [phone], fax [phone]). Humphrey Garza RN CM
[2022-08-17] MEDS: 0.9% Saline Lock 10 ML Syringe IV (13:34)
[2022-08-17] MEDS: Albuterol 2.5 MG/3 ML VIAL.NEB. INHALATION (14:27)
--- NOTE | 2022-08-17 14:47 | CASEMGMT ---
Addendum entered by Betina Escalante 08/17/22 15:31: Referral sent to [facility] via [facility]. Addendum entered by Betina Escalante 08/17/22 15:23: Pt present in room, discussed dc planning. Pt has oxygen through [facility] at night through CPAP. She states she does not have any tubing for the concentrator long enough for the home. She also did not bring a portable tank but has them. TC to [facility], spoke with Claudia. [facility] will bring portable tank and oxygen tubing to hospital. Pt and aware. Pt and deny any homegoing needs. DIANE ROSARIO discussed [employer] form with patient/. DIANE ROSARIO explained [employer] form, patient voiced understanding. Pt signed form and filed in chart. Pt and provided with a copy of signed [employer] form. Patient had no further questions or concerns at this time. Original Note: DIANE ROSARIO in to pt room, pt aware he needs oxygen. Asked pt if he wanted DIANE ROSARIO to call his , he stated yes. TC to pt to discuss oxygen providers as well as [employer], left to return call.
--- NOTE | 2022-08-17 15:23 | DCINST_ITS ---
Discharge Instructions Diet Discharge Diet: - (Return to previous diet) Activity Discharge Activity: - (Return to previous level of activity) Follow Up Care Test Results: Test results from this visit will be discussed in further detail at your follow- up appointment, if applicable. Discharge Plan Admission Admit Date/Time: 08/16/22 13:37 Primary Reason for Your Visit: Shortness of breath Attending Provider: Felecia Burns Primary Care Provider: Conrad Arroyo Instructions Patient Instructions: Asthma and COPD Additional Instructions / Restrictions: *Please take this with you to your next doctors appointment* DISCHARGE INSTRUCTIONS PLEASE READ ?You were diagnosed with a COPD exacerbation and have been placed on steroids and an antibiotic ?You will take prednisone 40 mg daily for three more days and cefdinir twice daily through 08/21 with your first dose tonight ?You will also be discharged on 3 L of oxygen with movement and it is important that you use this -Recommend call upon discharge to schedule a follow-up with your pulmonary doctor, Dr. Mcgrath ?Please continue to use your home albuterol as needed, will add scheduled Spiriva at this time, take 2 puffs once daily, but this may be further adjusted by your primary care or lung doctors in the future ?Your rash cream was changed to miconazole topical, a prescription for this will be sent to your pharmacy, you will use this in place of the clotrimazole betamethasone cream. Would advise you keep appointment with urology on Saturday for further evaluation and management. ?Your potassium was held as your potassium was within normal limits without supplementation here. Your amlodipine is also been held due to variable blood pressure, this will likely need restarted on an outpatient basis -Please call your primary care provider's office upon discharge to schedule a hospital follow up within 1 week. -For any concerning signs or symptoms please call 911 or proceed to the nearest emergency department Discharge Orders/Prescriptions Prescriptions: New Spiriva Respimat 2.5 mcg/actuation mist 2 puff inhalation DAILY Qty: 4 0RF prednisone 20 mg tablet 40 mg PO DAILY 3 Days Qty: 6 0RF cefdinir 300 mg capsule 300 mg PO BID 3 Days Qty: 7 0RF Rx Instructions: First dose tonight miconazole nitrate 2 % Cream 1 applic topical BID 14 Days Qty: 15 0RF Protocol: *Topical Application Instructions APPLICATION INSTRUCTIONS: Apply to erythema on glans of penis BID Continued Complete Multivitamin tablet 1 tab PO DAILY apixaban 5 mg tablet 5 mg PO BID Qty: 60 12RF atorvastatin 40 mg tablet 40 mg PO QHS Qty: 30 11RF clopidogrel 75 mg tablet 75 mg PO DAILY Qty: 30 12RF potassium chloride 10 mEq tablet extended release 20 meq PO TID Qty: 90 12RF albuterol sulfate [Ventolin HFA] 90 mcg/actuation HFA aerosol inhaler 2 inh inhalation Q4H PRN (Reason: shortness of breath or wheezing) Qty: 18 6RF fluticasone propionate [Flonase Allergy Relief] 50 mcg/actuation spray,suspension 2 spray INTRANASAL DAILY Qty: 16 6RF famotidine 20 MG tablet 20 mg PO QHS PRN PRN (Reason: Gastric Reflux) Label Comments: reduce acid baclofen 10 MG tablet 5 mg PO TID 0RF Label Comments: muscle relaxant ezetimibe 10 mg tablet 10 mg PO DAILY Label Comments: TAKE 1 TABLET BY MOUTH ONCE DAILY escitalopram oxalate 20 mg Tablet 20 mg PO DAILY menthol-zinc oxide [Calmoseptine] 0.44-20.6 % Ointment 1 applic topical TID PRN (Reason: Diaper Rash) Qty: 0 0RF Protocol: *Topical Application Instructions APPLICATION INSTRUCTIONS: scrotum/luci-rectal area prn amiodarone 100 mg tablet 100 mg PO DAILY Label Comments: TAKE 1 TABLET BY MOUTH ONCE DAILY. DO NOT TAKE IF HEART RATE IS LESS THAN 40. lorazepam 0.5 MG tablet 0.5 mg PO BID Qty: 10 0RF trazodone 50 mg tablet 50 mg PO QHS Label Comments: take 1 tablet by mouth at bedtime buspirone 10 mg tablet 10 mg PO TID Label Comments: TAKE 1 TABLET BY MOUTH THREE TIMES DAILY trazodone 100 mg tablet 100 mg PO QHS Label Comments: TAKE 1 TABLET BY MOUTH DAILY AT BEDTIME hydrochlorothiazide 12.5 mg tablet 6.25 mg PO DAILY Qty: 90 3RF metoprolol tartrate 25 mg tablet 12.5 mg PO BID Qty: 30 6RF Rx Instructions: hold if heart rate is less than 60 (DME) IV poll See Rx Instructions .Route .MEDSUPPLY Qty: 1 0RF Rx Instructions: As directed Discontinued amlodipine 10 mg tablet 5 mg PO BID Qty: 30 12RF clotrimazole-betamethasone 1-0.05 % cream 1 applic TOPICAL 4X/DAY PRN (Reason: REDNESS) Label Comments: apply to affected area twice a day Referrals / Follow Up: Doug Mcgrath DO [Med Staff - Active Staff] - See Referral Note (Recommend call upon discharge to schedule a follow-up with your pulmonary doctor, Dr. Mcgrath) Conrad Arroyo MD [Primary Care Provider] - Within 1 Week Disposition Disposition (needs filled in before D/C Order can be placed): Home, Self Care
--- NOTE | 2022-08-17 15:41 | DS.PCM_ITS ---
Providers Date of Admission: 08/16/22 Date of Discharge: 08/17/22 Primary Care Physician: Dr. Conrad Arroyo MD Reason For Visit: COPD EXACERBATION Diagnosis Discharge Diagnosis (1) Hypoxia: Status: Acute Code(s): R09.02 - Hypoxemia Plan #Hypoxia secondary to acute exacerbation of COPD/history of DARON 4 L of O2 at bedtime #History of atrial fibrillation #History of coronary artery disease s/p cabg 2017 #History of left MCA stroke in 2017 #Balanitis Medications at Discharge Home Medications famotidine 20 mg tablet 20 mg PO QHS PRN PRN Gastric Reflux 12/21/16 baclofen 10 mg tablet 5 mg PO TID 02/05/17 multivitamin,[id number] (Complete Multivitamin tablet) 1 tab PO DAILY vitamin 12/04/18 apixaban 5 mg tablet 5 mg PO BID blood thinner #60 tabs 04/19/20 atorvastatin 40 mg tablet 40 mg PO QHS cholesterol #30 tabs 04/19/20 clopidogrel 75 mg tablet 75 mg PO DAILY anti platelet #30 tabs 04/19/20 potassium chloride 10 mEq tablet,extended release 20 meq PO TID potassium #90 tabs 04/19/20 ezetimibe 10 mg tablet 10 mg PO DAILY 04/22/21 escitalopram oxalate 20 mg tablet 20 mg PO DAILY antidepressant 06/11/21 menthol 0.44 %-zinc oxide 20.6 % topical ointment (Calmoseptine) 1 applic topical TID PRN Diaper Rash #0 grams 06/17/21 amiodarone 100 mg tablet 100 mg PO DAILY HEART 07/11/21 lorazepam 0.5 mg tablet 0.5 mg PO BID anxiety #10 tabs 08/23/21 hydrochlorothiazide 12.5 mg tablet 6.25 mg PO DAILY diuretic #90 tabs 03/12/22 metoprolol tartrate 25 mg tablet 12.5 mg PO BID #30 tabs 04/16/22 albuterol sulfate 90 mcg/actuation aerosol inhaler (Ventolin HFA) 2 inh inhalation Q4H PRN shortness of breath or wheezing #18 grams 05/29/22 fluticasone propionate 50 mcg/actuation nasal spray,suspension (Flonase Allergy Relief) 2 spray intranasal DAILY #16 grams 05/29/22 IV poll #1 ea 08/07/22 buspirone 10 mg tablet 10 mg PO TID ANXIETY 08/16/22 trazodone 100 mg tablet 100 mg PO QHS SLEEP 08/16/22 trazodone 50 mg tablet 50 mg PO QHS DEPRESSION 08/16/22 cefdinir 300 mg capsule 300 mg PO BID 3 days #7 caps 08/17/22 miconazole nitrate 2 % topical cream 1 applic topical BID 14 days #15 grams 08/17/22 prednisone 20 mg tablet 40 mg PO DAILY 3 days #6 tabs 08/17/22 tiotropium bromide 2.5 mcg/actuation mist for inhalation (Spiriva Respimat) 2 puff inhalation DAILY #4 grams 08/17/22 Hospital Course Summary of Care Provided Minutes Spent on Discharge: 25 Hospital Course: ROBERTA ZEE, is a 67-year-old male with history of coronary artery disease, atrial fibrillation, left MCA stroke in 2016 with residual dysphagia and right- sided deficit, tobacco use who presented to [facility] 08/16/2022 due to shortness of breath.? Does reportedly have a history of COPD not on continuous home O2 but does wear CPAP at night with O2.? Over the past 3 weeks he has had progressive dyspnea and at times gasps for air, occasional coughing spells.? Did have a previous pneumothorax in June 2021 after biopsy with 1 recurrence.? He was 94% on room air initially but dropped down to 88% and was dyspneic with ambulation.? D-dimer negative, patient given steroids and hospitalist consulted for admission. Diagnosed with COPD exacerbation and on nebs, steroids, cefdinir. Follows Dr. Mcgrath as an outpatient. No source of exacerbation found and patient stable, day of discharge felt his breathing was improved, no O2 at rest but did require 3 L with ambulation and was to have this home going. Discharge instructions as follows: ?You were diagnosed with a COPD exacerbation and have been placed on steroids and an antibiotic ?You will take prednisone 40 mg daily for three more days and cefdinir twice daily through 08/21 with your first dose tonight ?You will also be discharged on 3 L of oxygen with movement and it is important that you use this -Recommend call upon discharge to schedule a follow-up with your pulmonary doctor, Dr. Mcgrath ?Please continue to use your home albuterol as needed, will add scheduled Spiriva at this time, take 2 puffs once daily, but this may be further adjusted by your primary care or lung doctors in the future ?Your rash cream was changed to miconazole topical, a prescription for this will be sent to your pharmacy, you will use this in place of the clotrimazole betamethasone cream.? Would advise you keep appointment with urology on Saturday for further evaluation and management. ?Your potassium was held as your potassium was within normal limits without supplementation here.? Your amlodipine is also been held due to variable blood pressure, this will likely need restarted on an outpatient basis -Please call your primary care provider's office upon discharge to schedule a hospital follow up within 1 week. -For any concerning signs or symptoms please call 911 or proceed to the nearest emergency department Physical Exam Const alert and no apparent distress HEENT normocephalic and head/scalp atraumatic Eyes Eyes Narrative: EOM grossly intact, anicteric Neck supple Resp normal respiratory effort and clear to auscultation bilaterally Cardio regular rate and regular rhythm GI soft to palpation, non-tender and non-distended Extremity Extremity Narrative: No edema appreciated Skin no rashes or lesions noted Neuro Neuro Narrative: Expressive aphasia, persistent right-sided limb deficit as well Psych Psych Narrative: Cooperative Weight / BMI Weight Weight: 88.5 kg Body Mass Index (BMI) 28.8 ABG / Lab / Microbiology Data Result Diagrams: 08/17/22 06:00 08/17/22 06:00 Laboratory: Laboratory Results - last 24 hr 08/16/22 13:45: Urine Color Yellow, Urine Clarity Clear, Urine pH 6.5, Ur Specific [place] 1.010, Urine Protein 30 H, Urine Glucose (UA) Normal, Urine Ketones Negative, Urine Occult Blood Negative, Urine Nitrite Negative, Urine Bilirubin Negative, Urine Urobilinogen Normal, Ur Leukocyte Esterase Negative 08/16/22 14:15: COVID-19 (PAMELA) Not Detected 08/17/22 06:00: WBC 12.5 H, RBC 4.41 L, Hgb 13.3, Hct 38.9 L, MCV 88.2, MCH 30.2, MCHC 34.2 D, RDW Std Deviation 42.3, RDW Coeff of Makayla 13.1, Plt Count 268, MPV 10.8, Immature Gran % (Auto) 1.000 H, Neut % (Auto) 87.1 H, Lymph % (Auto) 10.5 L, [place] % (Auto) 1.2, Eos % (Auto) 0.0, Baso % (Auto) 0.2, Absolute Neuts (auto) 10.9 H, Absolute Lymphs (auto) 1.31, Nucleated RBC % 0.2 08/17/22 06:00: Sodium 140, Potassium 4.0, Chloride 107, Carbon Dioxide 24.0, Anion Gap 9, BUN 18, Creatinine 1.14, Estim Creat Clear Calc 62.88, Est GFR (MDRD) Af Amer 82, Est GFR (MDRD) Non-Af 68, BUN/Creatinine Ratio 15.8, Glucose 139 H, Calcium 8.7, Total Bilirubin 0.70, AST 14 L, ALT 26, Alkaline Phosphatase 107, Total Protein 7.1, Albumin 3.2, Globulin 3.9, Albumin/Globulin Ratio 0.8 L Microbiology: Microbiology 08/16/22 13:45 Urine, Clean Catch Urine Culture - Preliminary 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 08/16/22 10:15 Nasal Secretion SARS-CoV-2 Antigen (Rapid) - Final D/C Instructions Discharge Diet: - (Return to previous diet) Meaningful Use Info Meaningful Use Diagnoses (Choose all that apply): None applicable Discharge Plan Admission Admit Date/Time: 08/16/22 13:37 Primary Reason for Your Visit: Shortness of breath Attending Provider: Felecia Burns Primary Care Provider: Conrad Arroyo Instructions Patient Instructions: Asthma and COPD Additional Instructions / Restrictions: *Please take this with you to your next doctors appointment* DISCHARGE INSTRUCTIONS PLEASE READ ?You were diagnosed with a COPD exacerbation and have been placed on steroids and an antibiotic ?You will take prednisone 40 mg daily for three more days and cefdinir twice daily through 08/21 with your first dose tonight ?You will also be discharged on 3 L of oxygen with movement and it is important that you use this -Recommend call upon discharge to schedule a follow-up with your pulmonary doctor, Dr. Mcgrath ?Please continue to use your home albuterol as needed, will add scheduled Spiriva at this time, take 2 puffs once daily, but this may be further adjusted by your primary care or lung doctors in the future ?Your rash cream was changed to miconazole topical, a prescription for this will be sent to your pharmacy, you will use this in place of the clotrimazole betamethasone cream. Would advise you keep appointment with urology on Saturday for further evaluation and management. ?Your potassium was held as your potassium was within normal limits without supplementation here. Your amlodipine is also been held due to variable blood pressure, this will likely need restarted on an outpatient basis -Please call your primary care provider's office upon discharge to schedule a hospital follow up within 1 week. -For any concerning signs or symptoms please call 911 or proceed to the nearest emergency department Discharge Orders/Prescriptions Prescriptions: New Spiriva Respimat 2.5 mcg/actuation mist 2 puff inhalation DAILY Qty: 4 0RF prednisone 20 mg tablet 40 mg PO DAILY 3 Days Qty: 6 0RF cefdinir 300 mg capsule 300 mg PO BID 3 Days Qty: 7 0RF Rx Instructions: First dose tonight miconazole nitrate 2 % Cream 1 applic topical BID 14 Days Qty: 15 0RF Protocol: *Topical Application Instructions APPLICATION INSTRUCTIONS: Apply to erythema on glans of penis BID Continued Complete Multivitamin tablet 1 tab PO DAILY apixaban 5 mg tablet 5 mg PO BID Qty: 60 12RF atorvastatin 40 mg tablet 40 mg PO QHS Qty: 30 11RF clopidogrel 75 mg tablet 75 mg PO DAILY Qty: 30 12RF potassium chloride 10 mEq tablet extended release 20 meq PO TID Qty: 90 12RF albuterol sulfate [Ventolin HFA] 90 mcg/actuation HFA aerosol inhaler 2 inh inhalation Q4H PRN (Reason: shortness of breath or wheezing) Qty: 18 6RF fluticasone propionate [Flonase Allergy Relief] 50 mcg/actuation spray,suspension 2 spray INTRANASAL DAILY Qty: 16 6RF famotidine 20 MG tablet 20 mg PO QHS PRN PRN (Reason: Gastric Reflux) Label Comments: reduce acid baclofen 10 MG tablet 5 mg PO TID 0RF Label Comments: muscle relaxant ezetimibe 10 mg tablet 10 mg PO DAILY Label Comments: TAKE 1 TABLET BY MOUTH ONCE DAILY escitalopram oxalate 20 mg Tablet 20 mg PO DAILY menthol-zinc oxide [Calmoseptine] 0.44-20.6 % Ointment 1 applic topical TID PRN (Reason: Diaper Rash) Qty: 0 0RF Protocol: *Topical Application Instructions APPLICATION INSTRUCTIONS: scrotum/luci-rectal area prn amiodarone 100 mg tablet 100 mg PO DAILY Label Comments: TAKE 1 TABLET BY MOUTH ONCE DAILY. DO NOT TAKE IF HEART RATE IS LESS THAN 40. lorazepam 0.5 MG tablet 0.5 mg PO BID Qty: 10 0RF trazodone 50 mg tablet 50 mg PO QHS Label Comments: take 1 tablet by mouth at bedtime buspirone 10 mg tablet 10 mg PO TID Label Comments: TAKE 1 TABLET BY MOUTH THREE TIMES DAILY trazodone 100 mg tablet 100 mg PO QHS Label Comments: TAKE 1 TABLET BY MOUTH DAILY AT BEDTIME hydrochlorothiazide 12.5 mg tablet 6.25 mg PO DAILY Qty: 90 3RF metoprolol tartrate 25 mg tablet 12.5 mg PO BID Qty: 30 6RF Rx Instructions: hold if heart rate is less than 60 (DME) IV poll See Rx Instructions .Route .MEDSUPPLY Qty: 1 0RF Rx Instructions: As directed Discontinued amlodipine 10 mg tablet 5 mg PO BID Qty: 30 12RF clotrimazole-betamethasone 1-0.05 % cream 1 applic TOPICAL 4X/DAY PRN (Reason: REDNESS) Label Comments: apply to affected area twice a day Referrals / Follow Up: Doug Mcgrath DO [Med Staff - Active Staff] - See Referral Note (Recommend call upon discharge to schedule a follow-up with your pulmonary doctor, Dr. Mcgrath) Conrad Arroyo MD [Primary Care Provider] - Within 1 Week Disposition Disposition (needs filled in before D/C Order can be placed): Home, Self Care Charges/Coding Visit Charges Inpatient E&M: 26735 Disch Hosp
--- NOTE | 2022-08-17 16:34 | CHAPLAIN ---
Type of Pastoral Visit _x__ Initial Visit ___ Follow-up Visit ___ On-call Visit ___ General Patient Visit ___ Spiritual Assessment ___ Family Conference ___ Bereavement ___ Rapid Response ___ Code Blue ___ Other (describe below) Pastoral Care Referral From _x__ Patient ___ Family ___ Nurse ___ Physician ___ Boring Machine Set Up Operator Jig ___ Bodywork Therapist ___ Other (describe below) Sacrament/Intervention ___ Active listening ___ Anointing ___ Mandaen ___ Bereavement ___ Communion ___ Bruna exploration ___ ___ Life review ___ Prayer ___ Reconciliation ___ Sacrament of Sick _x__ Supportive presence ___ Wedding ___ Other (describe below) Pastoral Comments patient states he is donig fine and does not need support at this time
== END 2022-08-17 17:20 | disposition home or self-care (01) ==
LOC: ED 10:58 → MS3 12:46
PROVIDERS: Admitting Provider Internal Medicine; Emergency Provider Emergency Medicine; PCP Family Medicine; Visit Provider Internal Medicine
DX: J44.1 Chronic obstructive pulmonary disease with (acute) exacerbation (principal); I69.351 Hemiplegia and hemiparesis following cerebral infarction affecting right dominant side; I48.20 Chronic atrial fibrillation, unspecified; R09.02 Hypoxemia; I10 Essential (primary) hypertension; E78.5 Hyperlipidemia, unspecified; Z87.891 Personal history of nicotine dependence; I25.10 Atherosclerotic heart disease of native coronary artery without angina pectoris; Z95.1 Presence of aortocoronary bypass graft; G47.33 Obstructive sleep apnea (adult) (pediatric); Z79.899 Other long term (current) drug therapy; Z79.02 Long term (current) use of antithrombotics/antiplatelets; Z79.01 Long term (current) use of anticoagulants; Z79.51 Long term (current) use of inhaled steroids; I69.391 Dysphagia following cerebral infarction; I69.920 Aphasia following unspecified cerebrovascular disease; N48.1 Balanitis; I44.0 Atrioventricular block, first degree
CPT/HCPCS: 36415; 71046; 80048; 80053; 81002; 85025; 85379; 87077; 87086; 87088; 87186; 87635; 87811; 93005; 94640; 94668; 96374; 96376; 97162; 97166; 99221; 99252; 99285; A4216; G0378; G0463; U0003; U0005

== ENCOUNTER 2022-11-11 13:11 | Inpatient (IN) | payer MEDICARE, MEDICAID, SELFPAY ==
[2022-11-11] VITALS (10 sets, daily range): BP systolic 123–140; BP diastolic 55–63; PULSE 50–65; RESP 14–20; TEMP 36.6–37; O2SAT 81–96; BMI 30.7; BMI 28.0
--- NOTE | 2022-11-11 13:26 | RAD_ITS ---
INDICATION: Cough. EXAMINATION/TECHNIQUE: X-RAY - XR Chest 1 View COMPARISON: August 16, 2022 chest x-ray. FINDINGS: LINES/DEVICES: None. LUNGS: Patchy left midlung and basilar airspace opacity. Possible small left effusion. No pneumothorax. MEDIASTINUM AND CARDIOVASCULAR STRUCTURES: Median sternotomy, CABG. Stable appearance of the cardiomediastinal silhouette. BONES AND SOFT TISSUES: Stable degenerative changes. RAD/Chest 1 View (Portable) IMPRESSION: Left lung airspace disease consistent with pneumonia given the clinical history. Electronically Signed: Ronny Bergman MD at 14:11 EDT ,
--- NOTE | 2022-11-11 13:29 | ED.VIS.DYS ---
HPI History of Present Illness Chief Complaint: Shortness of Breath Informant: spouse/S.O. Limited: other (Aphasia due to stroke 6 years ago) Narrative Narrative: Patient presenting by EMS from home sick no other present providing history. History of stroke right-sided residual aphasia 6 years ago. He is taking Eliquis for history of atrial fibrillation with no missed doses. Patient wears oxygen at night 6 L since the stroke per her significant other along with having sleep apnea history. Does not wear oxygen during the day. States yesterday noted mild coughing and occasional gasping for air. She spoke with PCP, reports a monitor today more increasing symptoms. EMS arrival 86% on room air he was brought in on nonrebreather transition to nasal cannula 6L. There is been no recent vomiting or diarrhea. Patient at his baseline per significant other. Per nursing other does ambulate with a cane. 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 tract infection Mixed obstructive and restrictive ventilatory defect Respiratory failure Sepsis Smoker Stroke/cerebrovascular accident Home Medications famotidine 20 mg tablet 20 mg PO QHS PRN PRN Gastric Reflux 12/21/16 [History Last Taken 08/15/22] baclofen 10 mg tablet 5 mg PO TID 02/05/17 [Rx Last Taken 08/16/22] multivitamin,he-ewzs-havfgzgd (Complete Multivitamin tablet) 1 tab PO DAILY vitamin 12/04/18 [History Last Taken 08/16/22] potassium chloride 10 mEq tablet,extended release 20 meq PO TID potassium #90 tabs 04/19/20 [Rx Last Taken 08/16/22] ezetimibe 10 mg tablet 10 mg PO DAILY 04/22/21 [History Last Taken 08/16/22] escitalopram oxalate 20 mg tablet 20 mg PO DAILY antidepressant 06/11/21 [History Last Taken 08/16/22] menthol 0.44 %-zinc oxide 20.6 % topical ointment (Calmoseptine) 1 applic topical TID PRN Diaper Rash #0 grams 06/17/21 [Rx Last Taken Unknown] amiodarone 100 mg tablet 100 mg PO DAILY HEART 07/11/21 [History Last Taken 08/16/22] lorazepam 0.5 mg tablet 0.5 mg PO BID anxiety #10 tabs 08/23/21 [Rx Last Taken 08/16/22] metoprolol tartrate 25 mg tablet 12.5 mg PO BID #30 tabs 04/16/22 [Rx Last Taken 08/16/22] albuterol sulfate 90 mcg/actuation aerosol inhaler (Ventolin HFA) 2 inh inhalation Q4H PRN shortness of breath or wheezing #18 grams 05/29/22 [Rx Last Taken Unknown] fluticasone propionate 50 mcg/actuation nasal spray,suspension (Flonase Allergy Relief) 2 spray intranasal DAILY #16 grams 05/29/22 [Rx Last Taken 08/15/22] IV poll #1 ea 08/07/22 [Rx Last Taken Unknown] buspirone 10 mg tablet 10 mg PO TID ANXIETY 08/16/22 [History Last Taken 08/16/22] trazodone 50 mg tablet 50 mg PO QHS DEPRESSION 08/16/22 [History Last Taken 08/15/22] miconazole nitrate 2 % topical cream 1 applic topical BID 14 days #15 grams 08/17/22 [Rx Last Taken Unknown] budesonide-formoterol HFA 160 mcg-4.5 mcg/actuation aerosol inhaler (Symbicort) 2 puff inhalation BID #3 ea 08/22/22 [Rx Last Taken Unknown] acetaminophen 500 mg tablet 1,000 mg PO Q6H PRN Pain 11/11/22 [History Last Taken Unknown] amlodipine 5 mg tablet 5 mg PO DAILY 11/11/22 [History Last Taken Unknown] apixaban 5 mg tablet (Eliquis) 5 mg PO BID 11/11/22 [History Last Taken Unknown] clopidogrel 75 mg tablet (Plavix) 75 mg PO DAILY anti platelet 11/11/22 [History Last Taken Unknown] hydrochlorothiazide 12.5 mg tablet 12.5 mg PO DAILY diuretic 11/11/22 [History Last Taken Unknown] Allergy/AdvReac Type Severity Reaction Status Date / Time azithromycin Allergy Intermediate Hives Verified 08/22/22 10:46 [From [facility]] lisinopril Allergy Intermediate Hives and Verified 08/22/22 10:46 diarrhea Sulfa (Sulfonamide Allergy Hives Verified 08/22/22 10:46 Antibiotics) Family History Mother Diabetes Heart disease Father AAA (abdominal aortic aneurysm) Heart disease Surgical History History of gastrostomy tube placement (11/07/16) History of tracheostomy (11/07/16) 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 Social History (Updated 11/11/22 @ 15:33 by Melonie Burgos) household members: spouse Smoking Status: Former smoker how long ago did patient quit smokin years ago, 2ppd second hand exposure: Yes alcohol intake: never substance use type: does not use caffeine: No ROS ROS ED Review of Systems ROS Unobtainable: other Details: Limited due to stroke history. Constitutional Constitutional ED: Denies chills, fever(s) or sweats Respiratory/Chest Respiratory/Chest: Reports cough and dyspnea Gastrointestinal Gastrointestinal: Denies diarrhea or vomiting EXAM Physical Exam Const Vital Signs: 11/11/22 13:14 11/11/22 13:11 11/11/22 13:18 Temperature 98.6 F Temperature Source Temporal Pulse Rate 59 L Respiratory Rate 18 Respiratory Effort Short of Breath Respiratory Pattern Normal Blood Pressure 123/63 H Blood Pressure Mean 83 Pulse Ox 81 89 Oxygen Delivery Method Room Air Nasal Cannula Oxygen Flow Rate (L/min) 5 11/11/22 13:26 Temperature Temperature Source Pulse Rate Respiratory Rate Respiratory Effort Respiratory Pattern Blood Pressure Blood Pressure Mean Pulse Ox 93 Oxygen Delivery Method Room Air Oxygen Flow Rate (L/min) 6 Positive well nourished and well developed Constitutional Narrative: Nontoxic on nasal cannula. No respiratory distress. General Appearance ED: well developed and NAD HEENT Reports moist mucous membranes normocephalic and atraumatic Eyes PERRL, EOMs intact bilaterally and conjunctivae normal General Eye ED: Yes normal appearance of both eyes Neck no lymphadenopathy and supple General: Negative for tenderness Chest Wall Chest: Negative for tenderness Resp normal respiratory effort and normal air movement Effort and Inspection: symmetric chest movement; Negative for respiratory distress Cardio regular rate, regular rhythm and no murmurs Peripheral Pulses: pulses 2+ throughout GI normal to inspection, nondistended, normoactive bowel sounds and non-tender Palpation: Negative for guarding or rebound tenderness present Back/Spine no CVA tenderness and no thoracic nor lumbar tenderness Extremity General Extremety ED: Negative for edema or tenderness General Extremity: Negative for edema Neuro Neuro Narrative: Right-sided residual deficits. Sensorium / Orientation: awake and alert Skin no rashes or lesions noted and no wounds MDM MDM MDM Narrative Medical decision making narrative: Interventions / MDM: Differential diagnosis: Pneumonia, bronchitis, COVID, influenza, hypoxia Diagnosis considered but do not suspect: Pulmonary embolism however patient is on Eliquis. My EKG interpretation: Sinus rate of 53, no ST changes. Imaging independently reviewed and interpreted by myself: 1 view chest x-ray: Left-sided infiltrate also read by radiology. External documents reviewed: N/A Test considered but not ordered:N/A ED course: Sepsis labs ordered due to hypoxia. No respiratory distress however is on 6 L of oxygen. He typically wears at night per history from significant other. White count returned at 19 lactic acid 1.9. ABG does note hypoxia. PaO2 of 59 on 6 L. pH is normal at 7.44. Chest x-ray consistent with pneumonia on left side. COVID influenza negative. Allergy to Zithromax and given Rocephin and doxycycline for commune acquired pneumonia. Re-evaluation: stable, discussed with hospitalist Dr. Escalante For admission to PCU. Disposition discussed with patient/family/significant other: Patient Case discussed with consulting clinician: Hospitalist, Dr. Escalante Lab Data Attestation: I reviewed the patient's lab results. Labs: Laboratory Results - last 24 hr 11/11/22 11/11/22 11/11/22 13:22 13:22 13:40 WBC 19.4 H RBC 3.97 L Hgb 11.7 L Hct 36.1 L MCV 90.9 MCH 29.5 MCHC 32.4 RDW Std Deviation 44.3 H RDW Coeff of Makayla 13.4 Plt Count 300 MPV 11.4 Immature Gran % (Auto) 0.500 Neut % (Auto) 85.8 H Lymph % (Auto) 5.8 L [place] % (Auto) 7.5 Eos % (Auto) 0.1 Baso % (Auto) 0.3 Absolute Neuts (auto) 16.6 H Absolute Lymphs (auto) 1.13 Nucleated RBC % 0 Sodium 136 Potassium 4.1 Chloride 105 Carbon Dioxide 24.0 Anion Gap 7 BUN 19 H Creatinine 1.28 Estim Creat Clear Calc 56.00 Est GFR (MDRD) Af Amer 72 Est GFR (MDRD) Non-Af 60 BUN/Creatinine Ratio 14.8 Glucose 104 Lactic Acid 1.9 Calcium 8.8 Total Bilirubin 1.30 H AST 16 ALT 22 Alkaline Phosphatase 85 Total Protein 6.5 Albumin 3.1 L Globulin 3.4 Albumin/Globulin Ratio 0.9 Procalcitonin 11/11/22 13:40 WBC RBC Hgb Hct MCV MCH MCHC RDW Std Deviation RDW Coeff of Makayla Plt Count MPV Immature Gran % (Auto) Neut % (Auto) Lymph % (Auto) [place] % (Auto) Eos % (Auto) Baso % (Auto) Absolute Neuts (auto) Absolute Lymphs (auto) Nucleated RBC % Sodium Potassium Chloride Carbon Dioxide Anion Gap BUN Creatinine Estim Creat Clear Calc Est GFR (MDRD) Af Amer Est GFR (MDRD) Non-Af BUN/Creatinine Ratio Glucose Lactic Acid Calcium Total Bilirubin AST ALT Alkaline Phosphatase Total Protein Albumin Globulin Albumin/Globulin Ratio Procalcitonin 4.26 H ABG Data ABG results: ABG 11/11/22 13:53 Specimen Type ART Sample Site R Radial pH 7.44 Bicarbonate Actual 25.8 Total CO2 27 Base Excess 2 O2 Saturation 91 L ABG pCO2 37.8 ABG pO2 59 L Adrian Test Positive O2 Delivery Device Cannula Liter Flow 6.0 Radiography Diagnostic Testing: Clinical Impression(s) from Imaging Studies Chest X-Ray 11/11/22 13:26 IMPRESSION: Left lung airspace disease consistent with pneumonia given the clinical history. Electronically Signed: Ronny Bergman MD at 14:11 EDT , Discharge Plan Dx/Rx/DC Orders Clinical Impression: Community acquired pneumonia, History of stroke, Hypoxia, Aphasia Disposition Disposition: Acute Care Hospital [facility] Discharge Date/Time: 11/11/22 15:00
[2022-11-11 13:57] LABS: Absolute Lymphocyte Count 1.13 X10^3/uL (0.83-4.51); Absolute Neutrophil Count 16.6 X10^3/uL (2.0-7.7); Basophil# 0.06 X10^3/uL; Basophil% 0.3 % (0-1); Eosinophil# 0.01 X10^3/uL; Eosinophils% 0.1 % (0-5); Hematocrit 36.1 % (40-54); Hemoglobin 11.7 g/dL (13.0-16.5); Lymphocyte # 1.13 X10^3/ul (0.83-4.51); Lymphocyte % 5.8 % (19-41); Mean Corp Hgb Conc 32.4 g/dL (32-36); Mean Corpuscular Hgb 29.5 pg (27.0-32.0); Mean Corpuscular Volume 90.9 fL (80-94); Mean Platelet Vol. 11.4 fl (6.2-12.0); Monocyte# 1.45 X10^3/uL; Monocyte% 7.5 % (0-10); NRBC Flagged by Analyzer 0 % (0-5); Neutrophil % 85.8 % (47-70); Platelet Count 300 K/mm3 (150-450); RBC Distribution Width CV 13.4 % (11.6-14.6); RBC Distribution Width SD 44.3 fl (35.1-43.9); Red Blood Count 3.97 M/mm3 (4.6-6.2); White Blood Count 19.4 K/mm3 (4.4-11.0)
[2022-11-11 14:01] LABS: Allen Test Positive; Base Excess 2 mmol/L (-2 to +2); Bicarbonate 25.8 mmol/L (22-26); Blood Gas Specimen Type ART; O2 Delivery Device Cannula; PO2 59 mmHG (75-100); SITE R Radial; SO2 91 % (95-99); Total Carbon Dioxide 27 mmol/L; pCO2 37.8 mmHg (35-45); pH 7.44 (7.35-7.45)
[2022-11-11 14:10] LABS: Lactic Acid 1.9 mmol/L (0.4-1.9)
[2022-11-11 14:11] LABS: ALB/GLOB Ratio 0.9 RATIO (0.9-2.4); AST(SGOT) 16 U/L (15-37); Alanine Aminotransfer ALT/SGPT 22 U/L (16-61); Albumin, Serum 3.1 g/dL (3.2-5.0); Alkaline Phosphatase 85 U/L (45-117); Anion Gap 7 (5-15); BUN 19 mg/dL (7-18); BUN/Creat Ratio 14.8 RATIO (10-20); Calcium,Total 8.8 mg/dL (8.5-10.1); Chloride 105 mmol/L (98-107); Creatinine, Serum 1.28 mg/dL (0.70-1.30); EST Glomerular Filtration Rate 60 mL/min (>60); Est Glom Filt Rate - Afr Amer 72 mL/min (>60); Globulin 3.4 g/dL (2.2-4.2); Glucose 104 mg/dL (74-106); Potassium 4.1 mmol/L (3.5-5.1); Protein, Total 6.5 g/dL (6.4-8.2); Sodium Level 136 mmol/L (136-145)
--- NOTE | 2022-11-11 14:27 | HP.PCM.HOS_ITS ---
HPI - General General Date of Admission: 11/11/22 Date of Service: 11/11/22 HPI Narrative ROBERTA ZEE, is a 67 M with a PMH as outlined who presents via the ED on with a complaint of coughing and shortness of breath. 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 He wears 6L of oxygen at night, but not during the day. HE was noted to be coughing yesterday and was also gastpingg for air. His symptoms wosened today and so EMS was called. He was found to be saturating at 86% on room air and was brought to the ED. He has had no fever, chills, chest pain, palpitations, dizziness, nausea, vomiting or diarrhea. Review of systems is otherwise negative. Vitals in the ED with temperature of 98.6 Fahrenheit with pulse rate of 59 and blood pressure of 123/63. He was saturating at 93% on 6 L of oxygen. CBC showed hemoglobin of 11.7 with WBC of 19.4 and platelets of 300. Chemistry was largely unremarkable apart from mildly elevated total bilirubin of 1.3. Chest x-ray showed left lung airspace disease consistent with pneumonia. She has been admitted to be managed for acute on chronic hypoxic respiratory failure due to community-acquired pneumonia with concern for aspiration. [facility] [place] Medical History Anemia Aphasia as late effect of stroke Atherosclerosis of coronary artery without angina pectoris Carotid artery disease Cerebral arterial aneurysm Chronic atrial fibrillation Confusion Debility Dysphagia History of stroke HTN (hypertension) Hyperlipidemia Left acute arterial ischemic stroke, MCA (middle cerebral artery) (10/31/16) [facility] current use of amiodarone Lower resp. tract infection Mixed obstructive and restrictive ventilatory defect Respiratory failure Sepsis Smoker Stroke/cerebrovascular accident Home Medications famotidine 20 mg tablet 20 mg PO QHS PRN PRN Gastric Reflux 12/21/16 [History Last Taken 08/15/22] baclofen 10 mg tablet 5 mg PO TID 02/05/17 [Rx Last Taken 08/16/22] multivitamin,[id number] (Complete Multivitamin tablet) 1 tab PO DAILY vitamin 12/04/18 [History Last Taken 08/16/22] potassium chloride 10 mEq tablet,extended release 20 meq PO TID potassium #90 tabs 04/19/20 [Rx Last Taken 08/16/22] ezetimibe 10 mg tablet 10 mg PO DAILY 04/22/21 [History Last Taken 08/16/22] escitalopram oxalate 20 mg tablet 20 mg PO DAILY antidepressant 06/11/21 [History Last Taken 08/16/22] menthol 0.44 %-zinc oxide 20.6 % topical ointment (Calmoseptine) 1 applic topical TID PRN Diaper Rash #0 grams 06/17/21 [Rx Last Taken Unknown] amiodarone 100 mg tablet 100 mg PO DAILY HEART 07/11/21 [History Last Taken 08/16/22] lorazepam 0.5 mg tablet 0.5 mg PO BID anxiety #10 tabs 08/23/21 [Rx Last Taken 08/16/22] metoprolol tartrate 25 mg tablet 12.5 mg PO BID #30 tabs 04/16/22 [Rx Last Taken 08/16/22] albuterol sulfate 90 mcg/actuation aerosol inhaler (Ventolin HFA) 2 inh inhalation Q4H PRN shortness of breath or wheezing #18 grams 05/29/22 [Rx Last Taken Unknown] fluticasone propionate 50 mcg/actuation nasal spray,suspension (Flonase Allergy Relief) 2 spray intranasal DAILY #16 grams 05/29/22 [Rx Last Taken 08/15/22] IV poll #1 ea 08/07/22 [Rx Last Taken Unknown] buspirone 10 mg tablet 10 mg PO TID ANXIETY 08/16/22 [History Last Taken 08/16/22] trazodone 50 mg tablet 50 mg PO QHS DEPRESSION 08/16/22 [History Last Taken 08/15/22] miconazole nitrate 2 % topical cream 1 applic topical BID 14 days #15 grams 08/17/22 [Rx Last Taken Unknown] budesonide-formoterol HFA 160 mcg-4.5 mcg/actuation aerosol inhaler (Symbicort) 2 puff inhalation BID #3 ea 08/22/22 [Rx Last Taken Unknown] acetaminophen 500 mg tablet 1,000 mg PO Q6H PRN Pain 11/11/22 [History Last Taken Unknown] amlodipine 5 mg tablet 5 mg PO DAILY 11/11/22 [History Last Taken Unknown] apixaban 5 mg tablet (Eliquis) 5 mg PO BID 11/11/22 [History Last Taken Unknown] clopidogrel 75 mg tablet (Plavix) 75 mg PO DAILY anti platelet 11/11/22 [History Last Taken Unknown] hydrochlorothiazide 12.5 mg tablet 12.5 mg PO DAILY diuretic 11/11/22 [History Last Taken Unknown] Allergy/AdvReac Type Severity Reaction Status Date / Time azithromycin Allergy Intermediate Hives Verified 08/22/22 10:46 [From Zithromax Z-Dayo] lisinopril Allergy Intermediate Hives and Verified 08/22/22 10:46 diarrhea Sulfa (Sulfonamide Allergy Hives Verified 08/22/22 10:46 Antibiotics) Family History Mother Diabetes Heart disease Father AAA (abdominal aortic aneurysm) Heart disease Surgical History History of gastrostomy tube placement (11/07/16) History of tracheostomy (11/07/16) 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 Social History household members: spouse Smoking Status: Former smoker how long ago did patient quit smokin years ago, 2ppd second hand exposure: Yes alcohol intake: never substance use type: does not use caffeine: No ROS Constitutional Constitutional: Denies anorexia, chills, fatigue, fever(s), malaise or weakness Eyes Eyes: Denies change in vision ENT HEENT: Denies dysphagia, headache(s), hearing loss or sore throat Cardiovascular Cardiovascular: Reports dyspnea on exertion; Denies chest pain, edema, lightheadedness, orthopnea, palpitations, rapid heart rate or syncope Respiratory/Chest Respiratory/Chest: Reports cough, dyspnea, shortness of breath at rest, shortness of breath with exertion and wheezing; Denies hemoptysis or productive cough Gastrointestinal Gastrointestinal: Denies abdominal pain, constipation, diarrhea, nausea or vomiting Genitourinary Genitourinary: Denies burning urination Neurologic Neurologic: Reports abnormal speech Psychiatric Psychiatric: Denies anxiety or depression Vital Signs Vital Signs Vital Signs: 11/11/22 13:14 11/11/22 13:11 11/11/22 13:18 Temperature 98.6 F Temperature Source Temporal Pulse Rate 59 L Respiratory Rate 18 Respiratory Effort Short of Breath Respiratory Pattern Normal Blood Pressure 123/63 H Blood Pressure Mean 83 Pulse Ox 81 89 Oxygen Delivery Method Room Air Nasal Cannula Oxygen Flow Rate (L/min) 5 11/11/22 13:26 Temperature Temperature Source Pulse Rate Respiratory Rate Respiratory Effort Respiratory Pattern Blood Pressure Blood Pressure Mean Pulse Ox 93 Oxygen Delivery Method Room Air Oxygen Flow Rate (L/min) 6 Weight Weight: 208 lb 1.862 oz Body Mass Index (BMI) 30.7 Physical Exam Const alert, oriented x3 and no apparent distress General Appearance: cooperative HEENT normocephalic, head/scalp atraumatic, hearing grossly normal bilaterally and moist oral mucous membranes Mouth: oral and palatal mucosa normal Eyes PERRL, EOMs intact bilaterally and conjunctivae normal Neck no lymphadenopathy and supple Resp Resp Narrative: on 6L of oxygen. Diminished breath sounds bibasally, no wheezes or crackles. Cardio regular rate, regular rhythm, S1 normal heart sound, S2 normal heart sound and no murmurs GI normal to inspection, nondistended, normoactive bowel sounds, soft to palpation, non-tender and non-distended Extremity normal to inspection, full ROM and no clubbing, cyanosis or edema Neuro oriented x3 and CN's II-XII intact bilaterally Neuro Narrative: expressive aphasia, alert, power in RUE and RLE is 1/5 Sensorium / Orientation: awake and alert Psych affect normal Results Lab / Micro Data Result Diagrams: 11/11/22 13:22 11/11/22 13:22 Labs: Laboratory Results - last 24 hr 11/11/22 13:22: WBC 19.4 H, RBC 3.97 L, Hgb 11.7 L, Hct 36.1 L, MCV 90.9, MCH 29.5, MCHC 32.4, RDW Std Deviation 44.3 H, RDW Coeff of Makayla 13.4, Plt Count 300, MPV 11.4, Immature Gran % (Auto) 0.500, Neut % (Auto) 85.8 H, Lymph % (Auto) 5.8 L, [place] % (Auto) 7.5, Eos % (Auto) 0.1, Baso % (Auto) 0.3, Absolute Neuts (auto) 16.6 H, Absolute Lymphs (auto) 1.13, Nucleated RBC % 0 04/09/23 13:22: Sodium 136, Potassium 4.1, Chloride 105, Carbon Dioxide 24.0, Anion Gap 7, BUN 19 H, Creatinine 1.28, Estim Creat Clear Calc 56.00, Est GFR (MDRD) Af Amer 72, Est GFR (MDRD) Non-Af 60, BUN/Creatinine Ratio 14.8, Glucose 104, Calcium 8.8, Total Bilirubin 1.30 H, AST 16, ALT 22, Alkaline Phosphatase 85, Total Protein 6.5, Albumin 3.1 L, Globulin 3.4, Albumin/Globulin Ratio 0.9 11/11/22 13:40: Lactic Acid 1.9 Micro: Microbiology 11/11/22 13:40 Nasal Secretion SARS-CoV-2 & FLU Antigen (Rapid) - Final ABG Data ABG results: ABG 11/11/22 13:53 Specimen Type ART Sample Site R Radial pH 7.44 Bicarbonate Actual 25.8 Total CO2 27 Base Excess 2 O2 Saturation 91 L ABG pCO2 37.8 ABG pO2 59 L Adrian Test Positive O2 Delivery Device Cannula Liter Flow 6.0 Radiology Impression Chest X-Ray 11/11/22 13:26 IMPRESSION: Left lung airspace disease consistent with pneumonia given the clinical history. Electronically Signed: Ronny Bergman MD at 14:11 EDT , Assessment & Plan Assessment/Plan (1) Community acquired pneumonia: (2) Hypoxia: PLAN: Plan #Hypoxia in the setting of chronic hypoxic respiratory failure due to community- acquired pneumonia * Usually only wears 6 L of oxygen at night. Now requiring 6 L of oxygen during the day. * WBC elevated at 19.4 and chest x-ray shows evidence of left lower lobe pneumonia. * Started on IV ceftriaxone and doxycycline as he is allergic to azithromycin. * Check sputum culture. Urine for strep and Legionella. * COVID and flu test are negative. * Titrate oxygen to maintain saturation above 90%. * Breathing treatments with bronchodilators. * get speech therapy to evaluate patient * #History of CVA with residual expressive aphasia: On Plavix and statin #History of A-fib: On amiodarone and Eliquis #Hypertension: On hydrochlorothiazide and amlodipine. IV hydralazine as needed #CAD s/p CABG: On Plavix and statin #DARON: On 6 L of oxygen at night DVT prophylaxis: Already on Eliquis CODE STATUS:full code * Patient and counseled extensively about different types of CODE STATUS including full code, DNR CCA and DNR CCA. Patient elects to be full code. Total [id number] time 17 minutes. Total time spent on evaluation and management of patient, reviewing chart and specialist notes, discussing plan with patient and his , discussion with nursing and ancillary staff as well as documentation: 65 mins Charges/Coding Visit Charges Inpatient E&M: 77023 Init Hosp L2 Procedures Hospitalists Procedures: 72078 Advncd Care Plan 30 Min
[2022-11-11 14:38] LABS: Procalcitonin 4.26 ng/mL (0.00-0.09)
[2022-11-11] MEDS: Ceftriaxone 1 GM/50 ML BAG IV (14:42)
[2022-11-11] MEDS: 0.9% Normal Saline 1,000 ML 125 ML IV (17:17)
[2022-11-11] MEDS: Ipratropium/Albuterol Sulfate 3 ML AMPUL.NEB INHALATION (19:18)
[2022-11-11] MEDS: Budesonide Respules 0.5 MG/2 ML AMPUL.NEB. INHALATION (19:19)
[2022-11-11] MEDS: Metoprolol Tartrate 25 MG Tablet 12.5 MG PO (21:01)
[2022-11-11] MEDS: busPIRone 5 MG Tablet 10 MG PO (21:02)
[2022-11-11] MEDS: APIXABAN 5 MG TABLET PO (21:02)
[2022-11-11] MEDS: Baclofen 10 MG Tablet 5 MG PO (21:03)
[2022-11-12] VITALS (15 sets, daily range): BP systolic 121–139; BP diastolic 49–74; PULSE 58–90; RESP 16–24; TEMP 31.8–36.9; O2SAT 91–95
[2022-11-12] MEDS: 0.9% Normal Saline 1,000 ML 125 ML IV (02:09)
[2022-11-12] MEDS: Baclofen 10 MG Tablet 5 MG PO ×3 (05:21→23:19)
[2022-11-12] MEDS: busPIRone 5 MG Tablet 10 MG PO ×3 (05:21→23:20)
[2022-11-12 06:17] LABS: Absolute Lymphocyte Count 1.11 X10^3/uL (0.83-4.51); Absolute Neutrophil Count 10.5 X10^3/uL (2.0-7.7); Basophil# 0.04 X10^3/uL; Basophil% 0.3 % (0-1); Eosinophil# 0.23 X10^3/uL; Eosinophils% 1.8 % (0-5); Hematocrit 33.6 % (40-54); Hemoglobin 11.1 g/dL (13.0-16.5); Lymphocyte # 1.11 X10^3/ul (0.83-4.51); Lymphocyte % 8.9 % (19-41); Mean Corpuscular Volume 90.8 fL (80-94); Mean Platelet Vol. 11.2 fl (6.2-12.0); Monocyte% 4.8 % (0-10); NRBC Flagged by Analyzer 0 % (0-5); Neutrophil # 10.47 X10^3/uL (2.7-7.7); Neutrophil % 83.8 % (47-70); Platelet Count 250 K/mm3 (150-450); RBC Distribution Width CV 13.7 % (11.6-14.6); RBC Distribution Width SD 45.7 fl (35.1-43.9); White Blood Count 12.5 K/mm3 (4.4-11.0)
[2022-11-12 06:45] LABS: Anion Gap 3 (5-15); BUN 14 mg/dL (7-18); BUN/Creat Ratio 14.3 RATIO (10-20); Calcium,Total 8.2 mg/dL (8.5-10.1); Chloride 111 mmol/L (98-107); Creatinine, Serum 0.98 mg/dL (0.70-1.30); EST Glomerular Filtration Rate 81 mL/min (>60); Est Glom Filt Rate - Afr Amer 98 mL/min (>60); Estimated Creatinine Clearance 75.52 ml/min; Glucose 94 mg/dL (74-106); Potassium 3.6 mmol/L (3.5-5.1); Sodium Level 139 mmol/L (136-145)
[2022-11-12] MEDS: Ipratropium/Albuterol Sulfate 3 ML AMPUL.NEB INHALATION ×4 (07:11→20:37)
--- NOTE | 2022-11-12 08:00 | PN.HOSP_ITS ---
Reason for Visit Reason for Visit: Diagnoses Pneumonia, unspecified organism (11/11/22) Hypoxemia (11/11/22) Subjective Subjective Patient unable to answer questions due to his expressive aphasia but reports he seems to be in the right direction Objective Data Objective Data Vital Signs: Vital Signs Temp Pulse Resp BP Pulse Ox O2 Del Method O2 Flow Rate 97.9 F 66 18 134/58 H 92 Nasal Cannula 6 11/12/22 07:54 11/12/22 07:54 11/12/22 07:54 11/12/22 07:54 11/12/22 07:54 11/12/22 07:54 11/12/22 07:54 Oxygen Flow Rate (L/min) 6 Oxygen Delivery Method Nasal Cannula Weight: 88.7 kg Body Mass Index (BMI) 28.0 Intake & Output: Intake and Output for Last 24 Hours 11/10/22 11/11/22 11/12/22 23:59 23:59 23:59 Intake Total 810 / 1060 1350 / 1350 Output Total 1600 / 1600 Balance 810 / 260 -250 / -250 Lab / Micro Data Result Diagrams: 11/12/22 05:35 11/12/22 05:35 Labs: Laboratory Results - last 24 hr 11/11/22 13:22: WBC 19.4 H, RBC 3.97 L, Hgb 11.7 L, Hct 36.1 L, MCV 90.9, MCH 29.5, MCHC 32.4, RDW Std Deviation 44.3 H, RDW Coeff of Makayla 13.4, Plt Count 300, MPV 11.4, Immature Gran % (Auto) 0.500, Neut % (Auto) 85.8 H, Lymph % (Auto) 5.8 L, [place] % (Auto) 7.5, Eos % (Auto) 0.1, Baso % (Auto) 0.3, Absolute Neuts (auto) 16.6 H, Absolute Lymphs (auto) 1.13, Nucleated RBC % 0 11/11/22 13:22: Sodium 136, Potassium 4.1, Chloride 105, Carbon Dioxide 24.0, Anion Gap 7, BUN 19 H, Creatinine 1.28, Estim Creat Clear Calc 56.00, Est GFR (MDRD) Af Amer 72, Est GFR (MDRD) Non-Af 60, BUN/Creatinine Ratio 14.8, Glucose 104, Calcium 8.8, Total Bilirubin 1.30 H, AST 16, ALT 22, Alkaline Phosphatase 85, Total Protein 6.5, Albumin 3.1 L, Globulin 3.4, Albumin/Globulin Ratio 0.9 11/11/22 13:40: Lactic Acid 1.9 11/11/22 13:40: Procalcitonin 4.26 H 11/12/22 05:35: WBC 12.5 H, RBC 3.70 L, Hgb 11.1 L, Hct 33.6 L, MCV 90.8, MCH 30.0, MCHC 33.0, RDW Std Deviation 45.7 H, RDW Coeff of Makayla 13.7, Plt Count 250, MPV 11.2, Immature Gran % (Auto) 0.400, Neut % (Auto) 83.8 H, Lymph % (Auto) 8.9 L, [place] % (Auto) 4.8, Eos % (Auto) 1.8, Baso % (Auto) 0.3, Absolute Neuts (auto) 10.5 H, Absolute Lymphs (auto) 1.11, Nucleated RBC % 0 11/12/22 05:35: Sodium 139, Potassium 3.6, Chloride 111 H, Carbon Dioxide 25.0, Anion Gap 3 L, BUN 14, Creatinine 0.98, Estim Creat Clear Calc 75.52, Est GFR (MDRD) Af Amer 98, Est GFR (MDRD) Non-Af 81, BUN/Creatinine Ratio 14.3, Glucose 94, Calcium 8.2 L Micro: Microbiology 11/11/22 13:40 Nasal Secretion SARS-CoV-2 & FLU Antigen (Rapid) - Final ABG Data ABG results: ABG 11/11/22 13:53 Specimen Type ART Sample Site R Radial pH 7.44 Bicarbonate Actual 25.8 Total CO2 27 Base Excess 2 O2 Saturation 91 L ABG pCO2 37.8 ABG pO2 59 L Adrian Test Positive O2 Delivery Device Cannula Liter Flow 6.0 Radiography Diagnostic Testing: Radiology Impression Chest X-Ray 11/11/22 13:26 IMPRESSION: Left lung airspace disease consistent with pneumonia given the clinical history. Electronically Signed: Ronny Bergman MD at 14:11 EDT , Physical Exam Narrative General: Alert, oriented, no apparent distress HEENT: Atraumatic, normocephalic Eyes: Anicteric, normal conjunctiva, extraocular movements grossly intact Neck: Supple Respiratory: Slightly coarse at bases, normal respiratory effort Cardiovascular: Regular rate and rhythm GI: Soft, nontender, nondistended Extremities: No edema Musculoskeletal: Moving all extremities, does have a chronic foot drop Neuro: Aphasia Skin: No rashes appreciated Psych: Cooperative Assessment & Plan Assessment/Plan (1) Community acquired pneumonia: (2) Hypoxia: PLAN: Plan #Hypoxia in the setting of chronic hypoxic respiratory failure due to community- acquired pneumonia -Usually only wears 6 L of oxygen at night. Now requiring 6 L of oxygen during the day. -WBC elevated at 19.4 and chest x-ray shows evidence of left lower lobe pneumonia. -Started on IV ceftriaxone and doxycycline as he is allergic to azithromycin. -Check sputum culture. Urine for strep and Legionella. -COVID and flu test are negative. -Titrate oxygen to maintain saturation above 90%. -Breathing treatments with bronchodilators. -get speech therapy to evaluate patient -11/12: WBC count down to 12.5 today, blood cultures pending, sputum culture yet to be collected. Still has high O2 requirement, will monitor closely. No wheezings do not feel we need systemic steroids but low threshold to start given history #History of CVA with residual expressive aphasia: On Plavix and statin #History of A-fib: On amiodarone and Eliquis and metoprolol #Hypertension: On hydrochlorothiazide and amlodipine. IV hydralazine as needed #CAD s/p CABG: On Plavix and statin #DARON: On 6 L of oxygen at night DVT prophylaxis: Already on Eliquis Total time spent on evaluation and management of patient, reviewing chart and specialist notes, discussing plan with patient and his , discussion with [facility] and ancillary staff as well as documentation: 30 mins Charges/Coding Visit Charges Inpatient E&M: 33402 Subs Hosp L2
[2022-11-12] MEDS: Amiodarone 200 MG Tablet 100 MG PO (08:57)
[2022-11-12] MEDS: Escitalopram Oxalate 20 MG Tablet PO (08:58)
[2022-11-12] MEDS: APIXABAN 5 MG TABLET PO ×2 (08:58→23:19)
[2022-11-12] MEDS: Multivitamins,Ther W-Minerals Tablet 1 TABLET PO (08:58)
[2022-11-12] MEDS: hydroCHLOROthiazide 12.5mg 12.5 MG PO (08:58)
[2022-11-12] MEDS: Metoprolol Tartrate 25 MG Tablet 12.5 MG PO ×2 (08:58→23:20)
[2022-11-12] MEDS: Clopidogrel Bisulfate 75 MG Tablet PO (08:59)
[2022-11-12] MEDS: Ezetimibe 10 MG Tablet PO (08:59)
[2022-11-12] MEDS: amLODIPine 5 MG Tablet PO (08:59)
[2022-11-12] MEDS: Fluticasone 0.05% 1 SPRAY NASAL.SRY 2 SPRAY NASAL (11:06)
[2022-11-12] MEDS: Miconazole Nitrate Cream 1 APPLIC TOPICAL ×2 (11:06→23:22)
--- NOTE | 2022-11-12 12:10 | CASEMGMT ---
DIANE ROSARIO Face to Face with patient for initial transition planning/care coordination assessment. RN ABRAHAM introduced self and role at [facility]. Patient lying in bed, alert and oriented, at bedside. willing to participate in assessment and is able to answer all questions appropriately, as patient has difficulty speaking. Care providers, pharmacy, and demographics verified. wishes for patient to discharge home with resumption of [facility] HHC. states she has no further needs or concerns at this time. CM to follow for discharge planning needs that may arise. PCP: Cruz Specialists: Alcides, ip technology transactions attorney; Pb, urologist; Ingrid-actuarial clerk Preferred Pharmacy: [facility]; [facility] retail at discharge. Insurance: [employer] Prescription Benefit: yes Living Will/HPOA: yes, Eli Bhat LNOK: Living Arrangements: Patient lives with in single story apt with no steps to enter. Patient toilets self, assists with bathing and dressing. Transportation: DME/HHC: Patient has shower chair, cane, adjustable bed, grab bars, walker, wheelchair, medical alert, cpap, pulse ox, and home oxygen through [facility] at 5pm at . Patient has been to [facility] in the past. Patient is active with [facility]. Patient is active with [facility], ABRAHAM Lyn. Aides MWF 30 hours per week. Disposition Plan: Patient to discharge home with resumption of HHC, family support, and follow-up plans in place. Elida PEARCE, RN, CM
[2022-11-12] MEDS: LORazepam 0.5 MG Tablet 0.25 MG PO (16:03)
[2022-11-12] MEDS: Budesonide Respules 0.5 MG/2 ML AMPUL.NEB. INHALATION (20:38)
[2022-11-13] VITALS (16 sets, daily range): BP systolic 125–168; BP diastolic 65–78; PULSE 63–90; RESP 12–18; TEMP 36.4–37.1; O2SAT 91–96
[2022-11-13] MEDS: Baclofen 10 MG Tablet 5 MG PO ×3 (05:58→21:55)
[2022-11-13] MEDS: busPIRone 5 MG Tablet 10 MG PO ×3 (05:59→21:57)
[2022-11-13 06:32] LABS: Absolute Lymphocyte Count 1.22 X10^3/uL (0.83-4.51); Absolute Neutrophil Count 6.6 X10^3/uL (2.0-7.7); Basophil# 0.06 X10^3/uL; Basophil% 0.6 % (0-1); Eosinophil# 0.47 X10^3/uL; Eosinophils% 5.1 % (0-5); Hematocrit 35.1 % (40-54); Hemoglobin 11.5 g/dL (13.0-16.5); Lymphocyte # 1.22 X10^3/ul (0.83-4.51); Lymphocyte % 13.1 % (19-41); Mean Corp Hgb Conc 32.8 g/dL (32-36); Mean Corpuscular Hgb 29.9 pg (27.0-32.0); Mean Corpuscular Volume 91.4 fL (80-94); Mean Platelet Vol. 11.1 fl (6.2-12.0); Monocyte# 0.91 X10^3/uL; Monocyte% 9.8 % (0-10); NRBC Flagged by Analyzer 0 % (0-5); Neutrophil # 6.55 X10^3/uL (2.7-7.7); Neutrophil % 70.5 % (47-70); Platelet Count 272 K/mm3 (150-450); RBC Distribution Width CV 13.8 % (11.6-14.6); RBC Distribution Width SD 45.8 fl (35.1-43.9); Red Blood Count 3.84 M/mm3 (4.6-6.2); White Blood Count 9.3 K/mm3 (4.4-11.0)
[2022-11-13 07:00] LABS: Anion Gap 4 (5-15); BUN 12 mg/dL (7-18); BUN/Creat Ratio 11.4 RATIO (10-20); Calcium,Total 8.7 mg/dL (8.5-10.1); Chloride 108 mmol/L (98-107); Creatinine, Serum 1.05 mg/dL (0.70-1.30); EST Glomerular Filtration Rate 75 mL/min (>60); Est Glom Filt Rate - Afr Amer 91 mL/min (>60); Estimated Creatinine Clearance 70.49 ml/min; Glucose 86 mg/dL (74-106); Potassium 3.2 mmol/L (3.5-5.1); Sodium Level 139 mmol/L (136-145)
[2022-11-13] MEDS: Budesonide Respules 0.5 MG/2 ML AMPUL.NEB. INHALATION ×2 (07:23→21:37)
[2022-11-13] MEDS: Ipratropium/Albuterol Sulfate 3 ML AMPUL.NEB INHALATION ×4 (07:23→21:36)
[2022-11-13] MEDS: Fluticasone 0.05% 1 SPRAY NASAL.SRY 2 SPRAY NASAL (09:52)
[2022-11-13] MEDS: Ezetimibe 10 MG Tablet PO (09:52)
[2022-11-13] MEDS: amLODIPine 5 MG Tablet PO (09:52)
[2022-11-13] MEDS: Escitalopram Oxalate 20 MG Tablet PO (09:52)
[2022-11-13] MEDS: Doxycycline 100 MG CAPSULE PO ×2 (09:52→21:55)
[2022-11-13] MEDS: hydroCHLOROthiazide 12.5mg 12.5 MG PO (09:52)
[2022-11-13] MEDS: APIXABAN 5 MG TABLET PO ×2 (09:52→21:57)
[2022-11-13] MEDS: Metoprolol Tartrate 25 MG Tablet 12.5 MG PO ×2 (09:53→21:55)
[2022-11-13] MEDS: Multivitamins,Ther W-Minerals Tablet 1 TABLET PO (09:53)
[2022-11-13] MEDS: Amiodarone 200 MG Tablet 100 MG PO (09:54)
[2022-11-13] MEDS: Miconazole Nitrate Cream 1 APPLIC TOPICAL ×2 (09:54→21:58)
--- NOTE | 2022-11-13 10:09 | PN.HOSP_ITS ---
Reason for Visit Reason for Visit: Diagnoses Pneumonia, unspecified organism (11/11/22) Hypoxemia (11/11/22) Subjective Subjective Resting comfortably in bed, not at bedside. Patient shook his head yes when asked about coughing but has difficulty communicating any other symptoms Objective Data Objective Data Vital Signs: Vital Signs Temp Pulse Resp BP Pulse Ox O2 Del Method O2 Flow Rate 97.8 F 79 12 125/78 H 91 Nasal Cannula 6 11/13/22 03:43 11/13/22 07:23 11/13/22 07:23 11/13/22 03:43 11/13/22 07:23 11/13/22 07:23 11/13/22 07:23 Oxygen Flow Rate (L/min) 6 Oxygen Delivery Method Nasal Cannula Weight: 88.7 kg Body Mass Index (BMI) 28.0 Intake & Output: Intake and Output for Last 24 Hours 11/11/22 11/12/22 11/13/22 23:59 23:59 23:59 Intake Total 810 / 1060 3340 / 3340 Output Total 1600 / 2400 2500 / 2500 Balance 810 / 260 1740 / 940 -2500 / -2500 Lab / Micro Data Result Diagrams: 11/13/22 05:31 11/13/22 05:31 Labs: Laboratory Results - last 24 hr 11/13/22 05:31: WBC 9.3, RBC 3.84 L, Hgb 11.5 L, Hct 35.1 L, MCV 91.4, MCH 29.9, MCHC 32.8, RDW Std Deviation 45.8 H, RDW Coeff of Makayla 13.8, Plt Count 272, MPV 11.1, Immature Gran % (Auto) 0.900, Neut % (Auto) 70.5 H, Lymph % (Auto) 13.1 L, [place] % (Auto) 9.8, Eos % (Auto) 5.1 H, Baso % (Auto) 0.6, Absolute Neuts (auto) 6.6, Absolute Lymphs (auto) 1.22, Nucleated RBC % 0 11/13/22 05:31: Sodium 139, Potassium 3.2 L, Chloride 108 H, Carbon Dioxide 27.0, Anion Gap 4 L, BUN 12, Creatinine 1.05, Estim Creat Clear Calc 70.49, Est GFR (MDRD) Af Amer 91, Est GFR (MDRD) Non-Af 75, BUN/Creatinine Ratio 11.4, Glucose 86, Calcium 8.7 Micro: Microbiology 11/11/22 14:00 Blood Culture (Wb) - Right Hand Blood Culture - Preliminary No growth in 48 hours. 11/11/22 13:40 Blood Culture (Wb) - Anticubital Left Blood Culture - Preliminary No growth in 48 hours. 11/11/22 13:40 Nasal Secretion SARS-CoV-2 & FLU Antigen (Rapid) - Final Physical Exam Narrative General: Alert, oriented, no apparent distress HEENT: Atraumatic, normocephalic Eyes: Anicteric, normal conjunctiva, extraocular movements grossly intact Neck: Supple Respiratory: Slightly coarse at bases, normal respiratory effort Cardiovascular: Regular rate and rhythm GI: Soft, nontender, nondistended Extremities: No edema Musculoskeletal: Moving all extremities, does have a chronic foot drop Neuro: Aphasia Skin: No rashes appreciated Psych: Cooperative Assessment & Plan Assessment/Plan (1) Community acquired pneumonia: (2) Hypoxia: PLAN: Plan #Hypoxia in the setting of chronic hypoxic respiratory failure due to community- acquired pneumonia -Usually only wears 6 L of oxygen at night. Now requiring 6 L of oxygen during the day. -WBC elevated at 19.4 and chest x-ray shows evidence of left lower lobe pneumonia. -Started on IV ceftriaxone and doxycycline as he is allergic to azithromycin. -Check sputum culture. Urine for strep and Legionella. -COVID and flu test are negative. -Titrate oxygen to maintain saturation above 90%. -Breathing treatments with bronchodilators. -get speech therapy to evaluate patient -11/12: WBC count down to 12.5 today, blood cultures pending, sputum culture yet to be collected. Still has high O2 requirement, will monitor closely. No wheezings do not feel we need systemic steroids but low threshold to start given history -11/13: White blood cell count improving but still requiring 6 L, sputum culture ordered but not yet collected. COVID and flu negative but given slow to turnaround despite antibiotics will add respiratory panel for further evaluation. Continue nebs. Not wheezing so have not yet started steroids. No history of heart failure, do not suspect fluid overload. Will consider repeat chest x-ray if respiratory panel negative #History of CVA with residual expressive aphasia: On Plavix and statin #History of A-fib: On amiodarone and Eliquis and metoprolol #Hypertension: On hydrochlorothiazide and amlodipine. IV hydralazine as needed #CAD s/p CABG: On Plavix and statin #DARON: On 6 L of oxygen at night, has not tolerated CPAP in the past DVT prophylaxis: Already on Eliquis Total time spent on evaluation and management of patient, reviewing chart and s pecialist notes, discussing plan with patient and his , discussion with nursing and ancillary staff as well as documentation: 30 mins Charges/Coding Visit Charges Inpatient E&M: 29965 Subs Hosp L2
[2022-11-13] MEDS: Potassium Chloride 10mEq/100mL 10 MEQ/100 ML IV.SOLN. 100 MEQ IV BOLUS ×2 (12:12→14:03)
[2022-11-13] MEDS: Clopidogrel Bisulfate 75 MG Tablet PO (12:12)
[2022-11-13] MEDS: LORazepam 0.5 MG Tablet 0.25 MG PO (12:26)
[2022-11-14] VITALS (11 sets, daily range): BP systolic 129–143; BP diastolic 65–86; PULSE 65–89; RESP 15–22; TEMP 36.5–36.8; O2SAT 93–97
[2022-11-14 06:23] LABS: Absolute Lymphocyte Count 1.21 X10^3/uL (0.83-4.51); Absolute Neutrophil Count 5.8 X10^3/uL (2.0-7.7); Basophil# 0.08 X10^3/uL; Basophil% 0.9 % (0-1); Eosinophil# 0.74 X10^3/uL; Eosinophils% 8.4 % (0-5); Hematocrit 37.4 % (40-54); Hemoglobin 12.1 g/dL (13.0-16.5); Lymphocyte # 1.21 X10^3/ul (0.83-4.51); Lymphocyte % 13.7 % (19-41); Mean Corp Hgb Conc 32.4 g/dL (32-36); Mean Corpuscular Hgb 29.7 pg (27.0-32.0); Mean Corpuscular Volume 91.9 fL (80-94); Monocyte# 0.89 X10^3/uL; Monocyte% 10.1 % (0-10); NRBC Flagged by Analyzer 0 % (0-5); Neutrophil % 65.9 % (47-70); Platelet Count 311 K/mm3 (150-450); RBC Distribution Width CV 13.7 % (11.6-14.6); Red Blood Count 4.07 M/mm3 (4.6-6.2); White Blood Count 8.8 K/mm3 (4.4-11.0)
[2022-11-14] MEDS: Baclofen 10 MG Tablet 5 MG PO ×3 (06:37→21:40)
[2022-11-14] MEDS: busPIRone 5 MG Tablet 10 MG PO ×3 (06:37→21:41)
[2022-11-14 06:43] LABS: Anion Gap 6 (5-15); BUN 15 mg/dL (7-18); BUN/Creat Ratio 14.2 RATIO (10-20); Calcium,Total 9.1 mg/dL (8.5-10.1); Chloride 104 mmol/L (98-107); Creatinine, Serum 1.06 mg/dL (0.70-1.30); EST Glomerular Filtration Rate 74 mL/min (>60); Est Glom Filt Rate - Afr Amer 90 mL/min (>60); Estimated Creatinine Clearance 69.82 ml/min; Glucose 88 mg/dL (74-106); Potassium 3.2 mmol/L (3.5-5.1); Sodium Level 137 mmol/L (136-145)
[2022-11-14] MEDS: Ipratropium/Albuterol Sulfate 3 ML AMPUL.NEB INHALATION ×4 (07:32→20:08)
[2022-11-14] MEDS: Budesonide Respules 0.5 MG/2 ML AMPUL.NEB. INHALATION ×2 (07:35→20:08)
[2022-11-14] MEDS: Potassium Chloride 10mEq/100mL 10 MEQ/100 ML IV.SOLN. 100 MEQ IV BOLUS ×3 (09:33→11:39)
[2022-11-14] MEDS: Escitalopram Oxalate 20 MG Tablet PO (11:30)
[2022-11-14] MEDS: Metoprolol Tartrate 25 MG Tablet 12.5 MG PO (11:30)
[2022-11-14] MEDS: Ezetimibe 10 MG Tablet PO (11:30)
[2022-11-14] MEDS: Doxycycline 100 MG CAPSULE PO ×2 (11:30→21:41)
[2022-11-14] MEDS: Multivitamins,Ther W-Minerals Tablet 1 TABLET PO (11:30)
[2022-11-14] MEDS: Amiodarone 200 MG Tablet 100 MG PO (11:31)
[2022-11-14] MEDS: hydroCHLOROthiazide 12.5mg 12.5 MG PO (11:31)
[2022-11-14] MEDS: Clopidogrel Bisulfate 75 MG Tablet PO (11:31)
[2022-11-14] MEDS: APIXABAN 5 MG TABLET PO ×2 (11:31→21:41)
[2022-11-14] MEDS: Fluticasone 0.05% 1 SPRAY NASAL.SRY 2 SPRAY NASAL (11:32)
--- NOTE | 2022-11-14 12:20 | PN.HOSP_ITS ---
Reason for Visit Reason for Visit: Diagnoses Pneumonia, unspecified organism (11/11/22) Hypoxemia (11/11/22) Subjective Subjective Patient seen and evaluated at bedside with . She reports concerns that he had had some coughing with food earlier. He has been working with speech therapy. Respiratory status very slowly improving. Patient upset when informed he was staying another day Objective Data Objective Data Vital Signs: Vital Signs Temp Pulse Resp BP Pulse Ox O2 Del Method O2 Flow Rate 97.7 F L 87 20 H 141/78 H 94 Nasal Cannula 4 11/14/22 09:35 11/14/22 11:30 11/14/22 11:21 11/14/22 11:30 11/14/22 09:35 11/14/22 09:35 11/14/22 09:35 Oxygen Flow Rate (L/min) 4 Oxygen Delivery Method Nasal Cannula Weight: 88.7 kg Body Mass Index (BMI) 28.0 Intake & Output: Intake and Output for Last 24 Hours 11/12/22 11/13/22 11/14/22 23:59 23:59 23:59 Intake Total 3340 / 3340 1070 / 1070 200 / 200 Output Total 1600 / 2400 2850 / 3100 1050 / 1050 Balance 1740 / 940 -1780 / -2030 -850 / -850 Lab / Micro Data Result Diagrams: 11/14/22 05:04 11/14/22 05:04 Labs: Laboratory Results - last 24 hr 11/14/22 05:04: WBC 8.8, RBC 4.07 L, Hgb 12.1 L, Hct 37.4 L, MCV 91.9, MCH 29.7, MCHC 32.4, RDW Std Deviation 46.0 H, RDW Coeff of Makayla 13.7, Plt Count 311, MPV 11.0, Immature Gran % (Auto) 1.000 H, Neut % (Auto) 65.9, Lymph % (Auto) 13.7 L, [place] % (Auto) 10.1 H, Eos % (Auto) 8.4 H, Baso % (Auto) 0.9, Absolute Neuts (auto) 5.8, Absolute Lymphs (auto) 1.21, Nucleated RBC % 0 11/14/22 05:04: Sodium 137, Potassium 3.2 L, Chloride 104, Carbon Dioxide 27.0, Anion Gap 6, BUN 15, Creatinine 1.06, Estim Creat Clear Calc 69.82, Est GFR (MDRD) Af Amer 90, Est GFR (MDRD) Non-Af 74, BUN/Creatinine Ratio 14.2, Glucose 88, Calcium 9.1 Micro: Microbiology 11/13/22 18:48 Sputum, Expectorated/Coughed Respiratory Culture - P reliminary Appears to be normal respiratory wade. Further studies to follow. 11/13/22 16:10 Urine, Clean Catch Legionella Antigen - Final 11/13/22 16:10 Urine, Clean Catch Streptococcus pneumoniae Antigen (M - Final 11/13/22 11:12 Mucosa - Nasopharyngeal Respiratory Panel (PCR) - Final 11/11/22 14:00 Blood Culture (Wb) - Right Hand Blood Culture - Preliminary No growth in 48 hours. 11/11/22 13:40 Blood Culture (Wb) - Anticubital Left Blood Culture - Preliminary No growth in 48 hours. 11/11/22 13:40 Nasal Secretion SARS-CoV-2 & FLU Antigen (Rapid) - Final Physical Exam Narrative General: Alert, oriented, no apparent distress HEENT: Atraumatic, normocephalic Eyes: Anicteric, normal conjunctiva, extraocular movements grossly intact Neck: Supple Respiratory: normal respiratory effort Cardiovascular: Regular rate and rhythm GI: Soft, nontender, nondistended Extremities: No edema Musculoskeletal: Moving all extremities, does have a chronic foot drop Neuro: Aphasia Skin: No rashes appreciated Psych: Cooperative Assessment & Plan Assessment/Plan (1) Community acquired pneumonia: (2) Hypoxia: PLAN: Plan #Hypoxia in the setting of chronic hypoxic respiratory failure due to community- acquired pneumonia -Usually only wears 6 L of oxygen at night. Now requiring 6 L of oxygen during the day. -WBC elevated at 19.4 and chest x-ray shows evidence of left lower lobe pneumonia. -Started on IV ceftriaxone and doxycycline as he is allergic to azithromycin. -Check sputum culture. Urine for strep and Legionella. -COVID and flu test are negative. -Titrate oxygen to maintain saturation above 90%. -Breathing treatments with bronchodilators. -get speech therapy to evaluate patient -11/12: WBC count down to 12.5 today, blood cultures pending, sputum culture yet to be collected. Still has high O2 requirement, will monitor closely. No wheezings do not feel we need systemic steroids but low threshold to start given history -11/13: White blood cell count improving but still requiring 6 L, sputum culture ordered but not yet collected. COVID and flu negative but given slow to turnaround despite antibiotics will add respiratory panel for further evaluation. Continue nebs. Not wheezing so have not yet started steroids. No history of heart failure, do not suspect fluid overload. Will consider repeat chest x-ray if respiratory panel negative -11/14: Blood cell count has normalized and slowly has decreased O2 requirements though still requiring the O2 during the day which he does not require at home. Pro-Homero was elevated on admission, will repeat to assess medication efficacy. After discussing with and concerns with coughing with food there may be an aspect of aspiration however improving with current antibiotics we will continue Rocephin #Dysphagia -Working with speech therapy -Had an episode of coughing while trying to hamburger last night but there is no direct supervision as staff unaware that he got his food tray - very anxious about this today, speech therapy note reviewed -Continue dysphagia precautions and modified diet. If any further episodes may need video swallow eval #History of CVA with residual expressive aphasia: On Plavix and statin #History of A-fib: On amiodarone and Eliquis and metoprolol #Hypertension: On hydrochlorothiazide and amlodipine. IV hydralazine as needed #CAD s/p CABG: On Plavix and statin #DARON: On 6 L of oxygen at night, has not tolerated CPAP in the past DVT prophylaxis: Already on Eliquis Total time spent on evaluation and management of patient, reviewing chart and specialist notes, discussing plan with patient and his , discussion with nursing and ancillary staff as well as documentation: 30 mins Charges/Coding Visit Charges Inpatient E&M: 47442 Subs Hosp L2
[2022-11-14 16:12] LABS: Procalcitonin 0.88 ng/mL (0.00-0.09)
[2022-11-14] MEDS: Miconazole Nitrate Cream 1 APPLIC TOPICAL (21:42)
[2022-11-14] MEDS: Metoprolol Tartrate 25 MG Tablet PO (21:42)
[2022-11-15] VITALS (12 sets, daily range): BP systolic 129–150; BP diastolic 65–73; PULSE 58–85; RESP 15–21; TEMP 36.6–37.2; O2SAT 89–98
[2022-11-15 05:10] LABS: Absolute Lymphocyte Count 1.35 X10^3/uL (0.83-4.51); Absolute Neutrophil Count 5.1 X10^3/uL (2.0-7.7); Basophil# 0.08 X10^3/uL; Eosinophils% 8.3 % (0-5); Hematocrit 36.7 % (40-54); Hemoglobin 11.7 g/dL (13.0-16.5); Lymphocyte # 1.35 X10^3/ul (0.83-4.51); Lymphocyte % 16.1 % (19-41); Mean Corp Hgb Conc 31.9 g/dL (32-36); Mean Corpuscular Hgb 29.3 pg (27.0-32.0); Mean Corpuscular Volume 91.8 fL (80-94); Mean Platelet Vol. 10.3 fl (6.2-12.0); Monocyte# 1.02 X10^3/uL; Monocyte% 12.1 % (0-10); NRBC Flagged by Analyzer 0 % (0-5); Neutrophil % 60.7 % (47-70); Platelet Count 304 K/mm3 (150-450); RBC Distribution Width CV 13.4 % (11.6-14.6); RBC Distribution Width SD 45.8 fl (35.1-43.9); White Blood Count 8.4 K/mm3 (4.4-11.0)
[2022-11-15 05:39] LABS: Anion Gap 3 (5-15); BUN 14 mg/dL (7-18); BUN/Creat Ratio 12.7 RATIO (10-20); Chloride 106 mmol/L (98-107); EST Glomerular Filtration Rate 71 mL/min (>60); Est Glom Filt Rate - Afr Amer 86 mL/min (>60); Estimated Creatinine Clearance 67.29 ml/min; Glucose 88 mg/dL (74-106); Potassium 3.3 mmol/L (3.5-5.1); Sodium Level 138 mmol/L (136-145)
[2022-11-15] MEDS: busPIRone 5 MG Tablet 10 MG PO (05:41)
[2022-11-15] MEDS: Baclofen 10 MG Tablet 5 MG PO (05:41)
[2022-11-15] MEDS: Potassium Chloride 10mEq/100mL 10 MEQ/100 ML IV.SOLN. 100 MEQ IV BOLUS ×2 (06:41→07:50)
[2022-11-15] MEDS: Budesonide Respules 0.5 MG/2 ML AMPUL.NEB. INHALATION (07:13)
[2022-11-15] MEDS: Ipratropium/Albuterol Sulfate 3 ML AMPUL.NEB INHALATION ×2 (07:13→10:58)
--- NOTE | 2022-11-15 10:37 | CASEMGMT ---
Addendum entered by Mercedes Chávez 11/15/22 16:15: voiced concerns re: if insurance does not approve further ST HHC visits. Discussed options of OP therapy as well. states would like to see if more HHC visits are approved and if not, they would be interested in pt going to [facility] for OP therapies. Dr Burns made aware. provided w/script for OP PT/OT/ST to [facility]. Addendum entered by Mercedes Chávez 11/15/22 13:10: Per Марина Sage RN, pt does not qualify for O2 @ rest or w//exertion, as his pulse ox maintained 90-91% even w/ambulation. Per Sabiha @ [facility], YVES slated for tomorrow 11/16/22. This was added in the discharge plan. Original Note: DIANE ROSARIO NOTE: Per Dr Burns, pt to discharge home today, if pt does not need more than 5 L/M O2. She states pt to have ST @ d/c. Call to [facility] and spoke w/Sabiha. Per Sabiha, pt is active w/PT/OT, and ST, but states they just received notice from pt's insurance that they are denying further ST visits d/t they determined pt has reached his full potential w/speech. She was made aware Dr Burns requesting ST @ d/c. Sabiha states they will try and get more ST visits approved from pt's insurance. Pt made aware of above. Albina PEARCE RN CM
[2022-11-15] MEDS: amLODIPine 5 MG Tablet PO (10:42)
[2022-11-15] MEDS: Clopidogrel Bisulfate 75 MG Tablet PO (10:42)
[2022-11-15] MEDS: Escitalopram Oxalate 20 MG Tablet PO (10:43)
[2022-11-15] MEDS: Ezetimibe 10 MG Tablet PO (10:43)
[2022-11-15] MEDS: Amiodarone 200 MG Tablet 100 MG PO (10:43)
[2022-11-15] MEDS: Multivitamins,Ther W-Minerals Tablet 1 TABLET PO (10:43)
[2022-11-15] MEDS: Fluticasone 0.05% 1 SPRAY NASAL.SRY 2 SPRAY NASAL (10:44)
[2022-11-15] MEDS: Miconazole Nitrate Cream 1 APPLIC TOPICAL (10:44)
[2022-11-15] MEDS: hydroCHLOROthiazide 12.5mg 12.5 MG PO (10:45)
[2022-11-15] MEDS: APIXABAN 5 MG TABLET PO (10:45)
[2022-11-15] MEDS: Metoprolol Tartrate 25 MG Tablet PO (10:46)
[2022-11-15] MEDS: Doxycycline 100 MG CAPSULE PO (10:46)
--- NOTE | 2022-11-15 14:33 | DCINST_ITS ---
Discharge Instructions Diet Discharge Diet: - ( speech therapy has recommended that you eat foods that are easy to chew. You must take small bites, small strips, no straws. Must eat at a slow rate and remain sitting upright for 30 minutes after any oral intake. He will need close one-to-one supervision while eating) Activity Discharge Activity: Return to Normal Activity Follow Up Care Test Results: Test results from this visit will be discussed in further detail at your follow- up appointment, if applicable. Discharge Plan Admission Admit Date/Time: 11/11/22 14:39 Primary Reason for Your Visit: Shortness of breath Attending Provider: Felecia Burns Primary Care Provider: Conrad Arroyo Consulting Providers: Arti Escalante Instructions Patient Instructions: Dysphagia Diet- Managing Drinks, Dysphagia Larynx Lifting Exercises, Dysphagia Diet- Managing Foods Additional Instructions / Restrictions: DISCHARGE INSTRUCTIONS PLEASE READ *Please take this with you to your next doctors appointment* -Your metoprolol dose was increased to 25 mg for your heart rate and blood pressure, and new prescription will be sent to your preferred pharmacy on file -You will be discharged on Augmentin 875 mg twice daily and doxycycline 100 mg twice daily, you will take these for another 6 days starting tomorrow morning 11/16. -Continue home Symbicort and as needed albuterol -Due to concerns with intermittent difficulty with swallowing speech therapy has recommended that you eat foods that are easy to chew. You must take small bites, small strips, no straws. Must eat at a slow rate and remain sitting upright for 30 minutes after any oral intake. He will need close one-to-one supervision while eating and will be important that you continue to work with speech therapy upon discharge -Continue your bedtime oxygen -Please call your primary care provider's office upon discharge to schedule a hospital follow up within 1 week. -For any concerning signs or symptoms please call 911 or proceed to the nearest emergency department Discharge Orders/Prescriptions Prescriptions: New doxycycline monohydrate 100 mg Capsule 100 mg PO BID 6 Days Qty: 13 0RF amoxicillin-pot clavulanate 875-125 mg tablet 1 tab PO BID 6 Days Qty: 12 0RF Continued Complete Multivitamin tablet 1 tab PO DAILY potassium chloride 10 mEq tablet extended release 20 meq PO TID Qty: 90 12RF albuterol sulfate [Ventolin HFA] 90 mcg/actuation HFA aerosol inhaler 2 inh inhalation Q4H PRN (Reason: shortness of breath or wheezing) Qty: 18 6RF fluticasone propionate [Flonase Allergy Relief] 50 mcg/actuation spray,suspension 2 spray INTRANASAL DAILY Qty: 16 6RF budesonide-formoterol [Symbicort] 160-4.5 mcg/actuation HFA aerosol inhaler 2 puff inhalation BID Qty: 3 3RF Rx Instructions: administer with spacer, rinse mouth after each use famotidine 20 MG tablet 20 mg PO QHS PRN PRN (Reason: Gastric Reflux) Label Comments: reduce acid baclofen 10 MG tablet 5 mg PO TID 0RF Label Comments: muscle relaxant ezetimibe 10 mg tablet 10 mg PO DAILY Label Comments: TAKE 1 TABLET BY MOUTH ONCE DAILY escitalopram oxalate 20 mg Tablet 20 mg PO DAILY menthol-zinc oxide [Calmoseptine] 0.44-20.6 % Ointment 1 applic topical TID PRN (Reason: Diaper Rash) Qty: 0 0RF Protocol: *Topical Application Instructions APPLICATION INSTRUCTIONS: scrotum/luci-rectal area prn amiodarone 100 mg tablet 100 mg PO DAILY Label Comments: TAKE 1 TABLET BY MOUTH ONCE DAILY. DO NOT TAKE IF HEART RATE IS LESS THAN 40. lorazepam 0.5 MG tablet 0.5 mg PO BID Qty: 10 0RF trazodone 50 mg tablet 50 mg PO QHS Label Comments: take 1 tablet by mouth at bedtime buspirone 10 mg tablet 10 mg PO TID Label Comments: TAKE 1 TABLET BY MOUTH THREE TIMES DAILY miconazole nitrate 2 % Cream 1 applic topical BID 14 Days Qty: 15 0RF Protocol: *Topical Application Instructions APPLICATION INSTRUCTIONS: Apply to erythema on glans of penis BID amlodipine 5 mg Tablet 5 mg PO DAILY acetaminophen 500 mg Tablet 1,000 mg PO Q6H PRN (Reason: Pain) Eliquis 5 mg tablet 5 mg PO BID Label Comments: TAKE ONE (1) TABLET BY MOUTH TWICE DAILY clopidogrel [Plavix] 75 mg tablet 75 mg PO DAILY hydrochlorothiazide 12.5 mg tablet 12.5 mg PO DAILY Changed metoprolol tartrate 25 mg tablet 25 mg PO BID 30 Days Qty: 30 6RF Rx Instructions: hold if heart rate is less than 60 No Action (DME) IV poll See Rx Instructions .Route .MEDSUPPLY Qty: 1 0RF Rx Instructions: As directed Referrals / Follow Up: Conrad Arroyo MD [Primary Care Provider] - 11/22/22 2:20 pm Disposition Disposition (needs filled in before D/C Order can be placed): Home Health Service
--- NOTE | 2022-11-15 15:16 | DS.PCM_ITS ---
Providers Date of Admission: 11/11/22 Date of Discharge: 11/15/22 Primary Care Physician: Dr. Conrad Arroyo MD Reason For Visit: PNEUMONIA Diagnosis Discharge Diagnosis (1) Community acquired pneumonia: Status: Acute Code(s): J18.9 - Pneumonia, unspecified organism (2) Hypoxia: Status: Acute Code(s): R09.02 - Hypoxemia Plan #Hypoxia in the setting of chronic hypoxic respiratory failure due to community- acquired pneumonia #Dysphagia #History of CVA with residual expressive aphasia #History of A-fib #Hypertension #CAD s/p CABG #DARON: On 6 L of oxygen at night, has not tolerated CPAP in the past Medications at Discharge Home Medications famotidine 20 mg tablet 20 mg PO QHS PRN PRN Gastric Reflux 12/21/16 baclofen 10 mg tablet 5 mg PO TID 02/05/17 multivitamin,xl-gyie-ncoihdoy (Complete Multivitamin tablet) 1 tab PO DAILY vitamin 12/04/18 potassium chloride 10 mEq tablet,extended release 20 meq PO TID potassium #90 tabs 04/19/20 ezetimibe 10 mg tablet 10 mg PO DAILY 04/22/21 escitalopram oxalate 20 mg tablet 20 mg PO DAILY antidepressant 06/11/21 menthol 0.44 %-zinc oxide 20.6 % topical ointment (Calmoseptine) 1 applic topical TID PRN Diaper Rash #0 grams 06/17/21 amiodarone 100 mg tablet 100 mg PO DAILY HEART 07/11/21 lorazepam 0.5 mg tablet 0.5 mg PO BID anxiety #10 tabs 08/23/21 albuterol sulfate 90 mcg/actuation aerosol inhaler (Ventolin HFA) 2 inh inhalation Q4H PRN shortness of breath or wheezing #18 grams 05/29/22 fluticasone propionate 50 mcg/actuation nasal spray,suspension (Flonase Allergy Relief) 2 spray intranasal DAILY #16 grams 05/29/22 IV poll #1 ea 08/07/22 buspirone 10 mg tablet 10 mg PO TID ANXIETY 08/16/22 trazodone 50 mg tablet 50 mg PO QHS DEPRESSION 08/16/22 miconazole nitrate 2 % topical cream 1 applic topical BID 14 days #15 grams 08/17/22 budesonide-formoterol HFA 160 mcg-4.5 mcg/actuation aerosol inhaler (Symbicort) 2 puff inhalation BID #3 ea 08/22/22 acetaminophen 500 mg tablet 1,000 mg PO Q6H PRN Pain 11/11/22 amlodipine 5 mg tablet 5 mg PO DAILY 11/11/22 apixaban 5 mg tablet (Eliquis) 5 mg PO BID 11/11/22 clopidogrel 75 mg tablet (Plavix) 75 mg PO DAILY anti platelet 11/11/22 hydrochlorothiazide 12.5 mg tablet 12.5 mg PO DAILY diuretic 11/11/22 amoxicillin 875 mg-potassium clavulanate 125 mg tablet 1 tab PO BID 6 days #12 tabs 11/15/22 doxycycline monohydrate 100 mg capsule 100 mg PO BID 6 days #13 caps 11/15/22 metoprolol tartrate 25 mg tablet 25 mg PO BID 30 days #30 tabs 11/15/22 Hospital Course Summary of Care Provided Minutes Spent on Discharge: 35 Hospital Course: 67-year-old male with history of atrial fibrillation, expressive aphasia as a fact of a previous stroke, CVA, hypertension presented to [facility] 11/11/2022 with coughing and shortness of breath. He wears 6 L of oxygen at night and not during the day but at home he is found to be 86% on room air and was brought to the emergency department. He was saturating 93% on 6 L of O2, white blood cell count was 19.4 and chest x-ray with infiltrate in left lung consistent with pneumonia. He was admitted and treated for community-acquired pneumonia with Rocephin and he was given doxycycline due to an allergy to azithromycin. He was cultured and started on nebs and breathing treatments. He slowly improved with antibiotics and cultures were negative. There was some concern that he may have aspirated and speech evaluated and had an updated diet recommendation. On day of discharge he did not require any O2 with ambulation was 89% and was discharged home with with the following instructions: -Your metoprolol dose was increased to 25 mg for your heart rate and blood pressure, and new prescription will be sent to your preferred pharmacy on file -You will be discharged on Augmentin 875 mg twice daily and doxycycline 100 mg twice daily, you will take these for another 6 days starting tomorrow morning 11/16. -Continue home Symbicort and as needed albuterol -Due to concerns with intermittent difficulty with swallowing speech therapy has recommended that you eat foods that are easy to chew.? You must take small bites, small strips, no straws.? Must eat at a slow rate and remain sitting upright for 30 minutes after any oral intake.? He will need close one-to-one supervision while eating and will be important that you continue to work with speech therapy upon discharge -Continue your bedtime oxygen -Please call your primary care provider's office upon discharge to schedule a hospital follow up within 1 week. -For any concerning signs or symptoms please call 911 or proceed to the nearest emergency department Physical Exam Narrative General: Alert, no apparent distress HEENT: Atraumatic, normocephalic Eyes: Anicteric, normal conjunctiva, extraocular movements grossly intact Neck: Supple Respiratory: normal respiratory effort Cardiovascular: Regular rate and rhythm GI: Soft, nontender, nondistended Extremities: No edema Musculoskeletal: Moving all extremities, does have a chronic foot drop Neuro: Expressive aphasia Skin: No rashes appreciated Psych: Somewhat irritable but overall cooperative Weight / BMI Weight Weight: 88.7 kg Body Mass Index (BMI) 28.0 ABG / Lab / Microbiology Data Result Diagrams: 11/15/22 04:56 11/15/22 04:56 Laboratory: Laboratory Results - last 24 hr 11/14/22 15:15: Procalcitonin 0.88 H 11/15/22 04:56: WBC 8.4, RBC 4.00 L, Hgb 11.7 L, Hct 36.7 L, MCV 91.8, MCH 29.3, MCHC 31.9 L, RDW Std Deviation 45.8 H, RDW Coeff of Makayla 13.4, Plt Count 304, MPV 10.3, Immature Gran % (Auto) 1.800 H, Neut % (Auto) 60.7, Lymph % (Auto) 16.1 L, [place] % (Auto) 12.1 H, Eos % (Auto) 8.3 H, Baso % (Auto) 1.0, Absolute Neuts (auto) 5.1, Absolute Lymphs (auto) 1.35, Nucleated RBC % 0 11/15/22 04:56: Sodium 138, Potassium 3.3 L, Chloride 106, Carbon Dioxide 29.0, Anion Gap 3 L, BUN 14, Creatinine 1.10, Estim Creat Clear Calc 67.29, Est GFR (MDRD) Af Amer 86, Est GFR (MDRD) Non-Af 71, BUN/Creatinine Ratio 12.7, Glucose 88, Calcium 9.0 Microbiology: Microbiology 11/13/22 18:48 Sputum, Expectorated/Coughed Gram Stain - Final 11/13/22 18:48 Sputum, Expectorated/Coughed Respiratory Culture - Final Mixed normal respiratory wade. No Streptococcus pneumoniae, beta-hemolytic Streptococcus or Staphylococcus aureus isolated. 11/13/22 16:10 Urine, Clean Catch Legionella Antigen - Final 11/13/22 16:10 Urine, Clean Catch Streptococcus pneumoniae Antigen (M - Final 11/13/22 11:12 Mucosa - Nasopharyngeal Respiratory Panel (PCR) - Final 11/11/22 14:00 Blood Culture (Wb) - Right Hand Blood Culture - Preliminary No growth in 48 hours. 11/11/22 13:40 Blood Culture (Wb) - Anticubital Left Blood Culture - Preliminary No growth in 48 hours. 11/11/22 13:40 Nasal Secretion SARS-CoV-2 & FLU Antigen (Rapid) - Final D/C Instructions Discharge Diet: - ( speech therapy has recommended that you eat foods that are easy to chew. You must take small bites, small strips, no straws. Must eat at a slow rate and remain sitting upright for 30 minutes after any oral intake. He will need close one-to-one supervision while eating) Meaningful Use Info Meaningful Use Diagnoses (Choose all that apply): None applicable Discharge Plan Admission Admit Date/Time: 11/11/22 14:39 Primary Reason for Your Visit: Shortness of breath Attending Provider: Felecia Burns Primary Care Provider: Conrad Arroyo Consulting Providers: Arti Esaclante Instructions Patient Instructions: Dysphagia Diet- Managing Drinks, Dysphagia Larynx Lifting Exercises, Dysphagia Diet- Managing Foods Additional Instructions / Restrictions: DISCHARGE INSTRUCTIONS PLEASE READ *Please take this with you to your next doctors appointment* -Your metoprolol dose was increased to 25 mg for your heart rate and blood pressure, and new prescription will be sent to your preferred pharmacy on file -You will be discharged on Augmentin 875 mg twice daily and doxycycline 100 mg t wice daily, you will take these for another 6 days starting tomorrow morning 11/16. -Continue home Symbicort and as needed albuterol -Due to concerns with intermittent difficulty with swallowing speech therapy has recommended that you eat foods that are easy to chew. You must take small bites, small strips, no straws. Must eat at a slow rate and remain sitting upright for 30 minutes after any oral intake. He will need close one-to-one supervision while eating and will be important that you continue to work with speech therapy upon discharge -Continue your bedtime oxygen -Please call your primary care provider's office upon discharge to schedule a hospital follow up within 1 week. -For any concerning signs or symptoms please call 911 or proceed to the nearest emergency department Discharge Orders/Prescriptions Prescriptions: New doxycycline monohydrate 100 mg Capsule 100 mg PO BID 6 Days Qty: 13 0RF amoxicillin-pot clavulanate 875-125 mg tablet 1 tab PO BID 6 Days Qty: 12 0RF Continued Complete Multivitamin tablet 1 tab PO DAILY potassium chloride 10 mEq tablet extended release 20 meq PO TID Qty: 90 12RF albuterol sulfate [Ventolin HFA] 90 mcg/actuation HFA aerosol inhaler 2 inh inhalation Q4H PRN (Reason: shortness of breath or wheezing) Qty: 18 6RF fluticasone propionate [Flonase Allergy Relief] 50 mcg/actuation spray,suspension 2 spray INTRANASAL DAILY Qty: 16 6RF budesonide-formoterol [Symbicort] 160-4.5 mcg/actuation HFA aerosol inhaler 2 puff inhalation BID Qty: 3 3RF Rx Instructions: administer with spacer, rinse mouth after each use famotidine 20 MG tablet 20 mg PO QHS PRN PRN (Reason: Gastric Reflux) Label Comments: reduce acid baclofen 10 MG tablet 5 mg PO TID 0RF Label Comments: muscle relaxant ezetimibe 10 mg tablet 10 mg PO DAILY Label Comments: TAKE 1 TABLET BY MOUTH ONCE DAILY escitalopram oxalate 20 mg Tablet 20 mg PO DAILY menthol-zinc oxide [Calmoseptine] 0.44-20.6 % Ointment 1 applic topical TID PRN (Reason: Diaper Rash) Qty: 0 0RF Protocol: *Topical Application Instructions APPLICATION INSTRUCTIONS: scrotum/luci-rectal area prn amiodarone 100 mg tablet 100 mg PO DAILY Label Comments: TAKE 1 TABLET BY MOUTH ONCE DAILY. DO NOT TAKE IF HEART RATE IS LESS THAN 40. lorazepam 0.5 MG tablet 0.5 mg PO BID Qty: 10 0RF trazodone 50 mg tablet 50 mg PO QHS Label Comments: take 1 tablet by mouth at bedtime buspirone 10 mg tablet 10 mg PO TID Label Comments: TAKE 1 TABLET BY MOUTH THREE TIMES DAILY miconazole nitrate 2 % Cream 1 applic topical BID 14 Days Qty: 15 0RF Protocol: *Topical Application Instructions APPLICATION INSTRUCTIONS: Apply to erythema on glans of penis BID amlodipine 5 mg Tablet 5 mg PO DAILY acetaminophen 500 mg Tablet 1,000 mg PO Q6H PRN (Reason: Pain) Eliquis 5 mg tablet 5 mg PO BID Label Comments: TAKE ONE (1) TABLET BY MOUTH TWICE DAILY clopidogrel [Plavix] 75 mg tablet 75 mg PO DAILY hydrochlorothiazide 12.5 mg tablet 12.5 mg PO DAILY Changed metoprolol tartrate 25 mg tablet 25 mg PO BID 30 Days Qty: 30 6RF Rx Instructions: hold if heart rate is less than 60 No Action (DME) IV poll See Rx Instructions .Route .MEDSUPPLY Qty: 1 0RF Rx Instructions: As directed Referrals / Follow Up: Conrad Arroyo MD [Primary Care Provider] - 11/22/22 2:20 pm Disposition Disposition (needs filled in before D/C Order can be placed): Home Health Servic e Charges/Coding Visit Charges Inpatient E&M: 22770 Disch Hosp >30min
--- NOTE | 2022-11-15 16:52 | NURSING ---
All charting and medication administration completed by Isa Martinez done under the supervision of this RN.
== END 2022-11-15 18:35 | disposition home health service (06) | DRG 178 ==
LOC: ED 14:18 → PCU 14:46
PROVIDERS: Admitting Provider Student in an Organized Health Care Education/Training Program; Emergency Provider Emergency Medicine; PCP Family Medicine; Visit Provider Internal Medicine
DX: J69.0 Pneumonitis due to inhalation of food and vomit (principal); J96.11 Chronic respiratory failure with hypoxia; I48.20 Chronic atrial fibrillation, unspecified; I25.10 Atherosclerotic heart disease of native coronary artery without angina pectoris; I10 Essential (primary) hypertension; E78.5 Hyperlipidemia, unspecified; G47.33 Obstructive sleep apnea (adult) (pediatric); I69.320 Aphasia following cerebral infarction; R13.10 Dysphagia, unspecified; Z20.822 Contact with and (suspected) exposure to COVID-19; Z79.01 Long term (current) use of anticoagulants; Z79.02 Long term (current) use of antithrombotics/antiplatelets; Z79.51 Long term (current) use of inhaled steroids; Z79.899 Other long term (current) drug therapy; Z87.891 Personal history of nicotine dependence; Z95.1 Presence of aortocoronary bypass graft
CPT/HCPCS: 36415; 36600; 71045; 80048; 80053; 82803; 83605; 84145; 85025; 87040; 87070; 87205; 87428; 87449; 87633; 92523; 92526; 92610; 93005; 94640; 94668; 97110; 97116; 97162; 97166; 97530; 97535; 99252; 99285; 99406; J7030; J7040; J7050; A4216; G0463; J0696

== ENCOUNTER 2023-02-13 14:00 | Outpatient (RCR) | payer MEDICAID, MEDICARE, SELFPAY ==
--- NOTE | 2023-01-02 13:58 | HP.PTEVAL_ITS ---
Patient's Visit Information ROBERTA ZEE is a 67 year old M referred to Physical Therapy by Dr. Conrad Arroyo MD with a diagnosis of CVA, R hemiplegia. Date of Evaluation: 01/02/23 Physical Therapist: Myron Gillette DPT - Visit Plan Frequency: 2x /Week Duration: 6 Weeks Plan: start with RLE strengthening, RLE coordination and stability with dynamic balance. Progress gait pattern with improved R hip flexion and progress gait distance. - Subjective Pt. is here today for his initial evaluation with diagnosis of CVA with R hemiplegia. CVA was 6 years prior, but has recently had several hospitalizations resulting in increased weakness and difficulty with functional mobility. He is with his spouse today. No pain noted. No illness currently. Pt. and spouse report he is able to walk in home, but has been having increased difficulty with advancing his RLE (tends to ER hip). He does wear an AFO on the R side due to foot drop. Pt. has minimal use of RUE as well. Pt. does have a scooter for long distances. He walks in home with SPC. Pt. did have a fall a month or 2 previously, but was also just starting to get sick and went to the hospital with pneumonia just after. Pt. and spouse are hopeful to increase walking endurance, speed and safety. They would also request working on curb steps as he has had trouble with these in the past. Patient does have aphasia with difficulty with word finding. - Objective POSTURE: Pt. has a general flexed posture, but is able to stand without AD. INcreased wt. shift to L side in stance. PALPATION: Pt. has no pain with palpation of BLEs. NEURO: Pt. has normal sensation in LLE, decreased in RLE. Pt. increased patellar DTR on L side. ROM: pt. has tightness in B HS, and R calf. Rest is pretty normal. MMT: RLE: ankle- minimal strength; knee: ext 24lbs, flexion 18.7#, hip 8#. LLE: ankle 5/5 throughout; knee: ext 48#, flexion 37.1#; hip: flexion 29.1#. Core strength- poor+. GAIT: Pt. was able to ambulate 158feet today with SPC and SBA. Pt. has increased R hip ER with increased adductor activation to advance RLE. Pt. has slight dragging of RLE, but is able to advance. Pt. ambulated for 4:51sec. TU.1sec with SPC - Balance/Special Test Scores Lower Extremity Functional Score: 18 TUG Test Time Seconds: 50.1 6 Minute Walk Test: Pt. walked for 4:51 sec for 158sec with SPC - Goals Goal 1:: LTG: Pt. to be I with HEP. Goal Time Frame: 4-6 Weeks Goal 2:: LTG: pt. to have increased RLE strength increased by 5# throughout allowing for improved ability to advance RLE with gait. Goal Time Frame: 4-6 Weeks Goal 3:: LTG: Pt. to complete 6 MWT with distance of at least 250'. Goal Time Frame: 4-6 Weeks Goal 4:: LTG: Pt. to have improved TUG time to 30sec or less with SPC. Goal Time Frame: 4-6 Weeks Goal 5:: LTG: Pt. to negotiate 1 [address] step with SPC SBA allowing for increased independence in community. Goal Time Frame: 4-6 Weeks - Rehabilitation Potential Physical Therapy Diagnosis: PT. has signs and symptoms consistent with CVA with R hemiplegia. Pt. has marked R sided weakness and some difficulty with gait, and balance. Pt. would benefit from PT to address the above limitations progressing gait and stability in home. Rehabilitation Potential: Good - Anticipated Interventions Patient/Client Instruction: Educate patient on: Condition, Plan of Care, Risk Factors, Benefits of Fitness Program For the Purpose of:: To foster healthy habits, To improve decision making, To facilitate caregiver knowledge, To improve self management, To prevent re- injury, To improve ability to perform tasks related to life management Therapeutic Exercise to Include: Strength training, Power training, Endurance training, Balance training, Body mechanics, Postural training, Gait and locomotor training For the Purpose of:: To improve nutrient delivery to tissue, To increase oxygenation perfusion, To improve muscle performance and motor function, To improve ability to perform ADL's, To increase tolerance to activity/condition/position, To improve gait and locomotor functions, To improve health of tissue, To increase flexibility/ROM Thank you for the opportunity to evaluate your patient. For Medicare and Medicare HMO plans, please review the plan of care and approve it. It will need to be FAXED BACK to us at [phone] for Medicare purposes. For Medicare only, by signing this I certify the plan of care. Please let me know if there are questions or concerns regarding this plan of care. Physician Signature: Date:
--- NOTE | 2023-01-02 14:28 | HP.OTEVAL ---
Patient's Visit Information ROBERTA ZEE is a 67 year old M, referred to Occupational Therapy by Dr. Conrad Arroyo MD, with a diagnosis of right hemiplegia; cerebrovascular accident. Date of Evaluation: 01/02/23 Occupational Therapist: Raven Rodarte - Subjective Arrived with , Eli s/p stroke in 2017. Previously in outpatient occupational therapy to address ROM/strength in R side and interested in resuming therapy to improve strength and ROM. Recently discharged from home health OT 12/05/22. Equipment: bioness unit for R arm and comfy splint to wear during the day, wheelchair for long distances, and cane - ADLs Comments: grooming: wears dentures but able to manage himself. dressing: gets clothes out then he can start to get dressed himeself, wears AFO on the R, needs help to don. bathing: TTB, able transfer indep onto tub bench but needs assist from for washing and drying. toileitng: indep with transfer (grab bars present) and able to get pants down + complete hygiene. sleeping: indep with transfer in/out bed. eating: eats chopped food, able to feed self (getting swallow eval at the hospital but would also like swallow test done at [facility] when we have the equipment). Able to use utensils and drink from an open cup - ROM ROM Comments: R UE PROM: shoulder: ~90 deg abduction/flexion. elbow: WNL. wrist: not full composite extension ROM in the wrist but intact passive extension and flexion. hand: thumb adducted, decr passive ROM and tight fingers in extension. L UE WNL actively - Strength Strength Comments: active upper trap and rhomboid contraction in the R shoulder and active bicep and finisher accordion on the R side but decreased extension in the hand and elbow. 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 His present to provide information as patient could not answer questions accurately - Transfers Transfers: completes functional transfers with SBA using cane, w/c for long distances - Quick DASH-Disab of Arm,Shoulder& Hand Quick DASH Score: [phone] - Goals Goal:: Patient will use R UE as a second assist/helper arm to stabilize or hold objects while mobilizing/opening them with L UE, evidenced by ability to open at least 3 varying containers while using R arm as a stabilizer. Goal:: Patient/caregiver will be independent with a safe R UE stretching/ROM routine including supporting the shoulder before stretching past 90 deg, evidenced by ability to provide return demo. Goal:: Patient will be assessed and fitted for splinting of R thumb to promote more abducted position and a safe stretch by d/c. - Rehabilitation General Assessment: Roberta arrived with his for OT evaluation. He arrived in a wheelchair which he uses for long distance. Roberta was recently discharged from home health OT services and him and his are interested in resuming outpatient OT to improve ROM and strength in R UE. Patient presents with tightness in R shoulder and R thumb and would benefit from home exercise program and training to establish safe stretching to shoulder, positioning techniques, and possibly aquiring a splint for his thumb to get it into a more abducted position as it remains adducted to his palm. Additionally we will work on improving R UE strength to use as a helper arm for two handed tasks such as opening containers. Patient and family are agreeable to 1x/week 30 min sessions to address strengthening, ROM/home stretching program, improving functional use of R UE, and ROM/positioning of R thumb. Rehabilitation Potential: Fair - Anticipated Interventions A/AAROM/PROM, Strengthening, Orthoses, Fine Motor Coord/Angelito, Neuro Reeducation, Caregiver Training, Home Program - Visit Plan Frequency: 1x/Week Duration: 3 Months General Plan: 1x/week for 30 min sessions for 12 weeks addressing: R thumb - bracing and stretching. stretch R UE with focus on R shoulder safe stretching. strengthening R arm - use as a helper arm to hold things to open containers TEXT: Thank you for the opportunity to evaluate your patient. For Medicare and Medicare HMO plans, please review the plan of care and approve it. It will need to be FAXED BACK to us at [phone] for Medicare purposes. Please let me know if there are questions or concerns regarding this plan of care. Physician Signature: Date:
--- NOTE | 2023-01-02 17:51 | HP.SP.EV_ITS ---
Visit History - Visit Info Date of Eval: 01/02/23 Visit: 1 Erp Programmer: GIO - Yanira Attending Doctor: Referring Doctor: Reason for Referral: APHASIA/CVA/HEMIPLEGIA. RX HERE Medical Diagnosis: Aphasia (I69.320); CVA (I63.9); Right Hemiplegia Previous speech therapy: Yes Results: FROM 2018 D/C NOTE: Roberta presents with moderate-severe cognitive- linguistic deficits following October, CVA, characterized by severe expressive aphasia and mild-moderate receptive aphasia. Strengths include completing automatic speech and phrase completion tasks with near independence, with minimal improvement made with confrontation naming, which is significantly impaired (0/10 independently). He does respond to initial phonemic cues and is able to imitate single words and brief phrases with some labial groping observed. Basic yes/no questions continue to be significantly impaired (0/4 ind ep). He follows simple one-step commands in 1/5 trials independently, though he improves during less structured and more routine activities. Roberta identified 11/16 similar objects from a field of 2 during this evaluation. He continues to verbalize yeah for almost all expressive communicative attempts, though is beginning to produce more verbal speech of up to three words without functional meaning/context. 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 FROM 2019 RE-EVALUATION NOTE: Re-assessed pt in various language tasks on 04/07/2020. Verbal Expression: Confrontation naming of common nouns - 0/10 acc, increasing to 6/10 with phrase completion cues. Repetition: Single word repetition - 3/10 accuracy increasing to 6/10 acc with minimal verbal prompts and models. Pt continues with moderate speech apraxia and required moderate verbal and visual placement cues to improve repetition of single words. Pt had increased difficulty with tongue placement for K and G consonants at word level. Auditory Comprehension: Yes/no questions with embedded concepts - 6/10 acc given minimal verbal prompting. One-step point to commands - 7/10 acc. Discussed plan to address apraxia of speech in future sessions with additional goal for repetition of 1 syllable words and implementation of oral agility exercises. agreeable to plan of care. Other Relevant Medical History/Diagnoses/Surgery: ROBERTA ZEE is a 67 year old male who [facility] for continuation of therapy services following in home speech therapy discharge. Roberta is accompanied by his , Vicki, who remained in session and served as historian. He was recently d/c from a hospital admission for recurring pneumonia diagnosis. Roberta has received speech therapy at this facility in the past after his previous CVA in 2016. He was d/c in 2019 for a break in therapies. On 10/30/16 the patient underwent coronary artery bypass graft at [facility]. 10/31/16 he suffered a left MCA distribution infarct complicated by respiratory failure. Hospitalization was prolonged requiring tracheostomy and PEG tube placement followed by LTAC placement. Therapies were initiated and the patient improved to transfer to inpatient rehab at [facility] on 12/21/16. Smoking Status: Former smoker - Diagnosis Diagnosis: Severe Expressive Aphasia; Mild-Moderate Receptive Aphasia; Apraxia - Pain Is pain an issue with your current prescribed condition?: No - Personal Preferred language: Ecuadorean History - History Smoking Status: Former smoker Hx Smoking: Yes Hx Smoking Cessation Date: 04/22/17 Hx Tobacco Use: Yes - jun 2016 Hx Smoking Exposure: Yes - Pain Is pain an issue with your current prescribed condition?: No Patient Allergies - Allergies Allergies azithromycin [From Zithromax Z-Dayo] Allergy (Intermediate, Verified 08/22/22 10:46) Hives lisinopril Allergy (Intermediate, Verified 08/22/22 10:46) Hives and diarrhea Sulfa (Sulfonamide Antibiotics) Allergy (Verified 08/22/22 10:46) Hives Objective Cog/Ling/Com - Test Administered Gqyunmdvb-Tytoivvewn-Edzgxexgjuaro Assessment Administered: Yes Rvebqvpgn-Zfvinvcwuz-Etssobkpufcsl Assessment: Cognitive ? Linguistic skills were evaluated using patient/family interview, skilled observation and informal evaluation through tasks completed by the patient. - Identification Body parts/objects: Moderate - Answer Yes/No Questions Simple: Mild, Moderate Complex: Severe - Follows Commands 1 Step: Moderate - Automatic Sequences Automatic Sequences: Mild - Repetition Words: Moderate Sentences: Moderate - Naming Responsive naming: Severe - Conversational Tasks Conversational Tasks: Severe Comments: During conversation, Pt often will nod/verbalize yes/no which at face value may seem 100% appropriate and reliable, however upon further investigation his basic and complex yes/no responses are closer to 30% accurate (3/10 opportunities). During conversation Pt uses 2 true words (yes/no) but no other ones unless provided with mod-max verbal and phonemic cues. - Comments Comments: During automatic sequencing tasks (RADHA, MEREDITH, ABCs), Roberta benefits from min phonemic cues to get the sequence started and then supervision throughout to shape oral motor productions. During confrontation naming tasks, Roberta named 10 pictures with 0% acc independently and benefited from multiple choice cues to improve to 30% acc (unreliable with choosing between two all the time) and then benefited from repeating item name to improve acc to 100%. Pt presenting with phonemic paraphasias along with apraxia of speech during word repetition tasks on the first trial however benefited from cont'd repetition with use of max oral motor cues 3x before articulation was 100% accurate. Roberta also demonstrated ability to use melodic intonation with singing the heads/shoulders/knees/toes song. - Reading Comprehension Words: Severe Phrases: Severe - Executive Function Comments Comments: Unable to assess cognitive function given the severity of his expressive and receptive aphasia. As expressive and receptive aphasia decreases, then would consider Pt for cognitive function assessment. Plan - Plan Plan: Will recommend Pt for weekly outpatient speech therapy intervention address severe expressive aphasia, apraxia, and potential dysphagia following objective assessment. Pt would benefit from circumlocution training, melodic intonation therapy, and immediate feedback to identify instances of paraphasia. Pt would also benefit from cognitive training to improve attention, executive functioning, and visuospatial skills. Without skilled intervention Pt is at risk for communicating basic, medical, emergent, social wants & needs, and interacting with family/friends at home, during social interactions, and at work. - Recommendations MBS: Yes Treatment Warranted: Yes Treatment Warranted: Receptive/ Expressive Language, Dysphagia - Progress Prognosis: Fair - Frequency Frequency: 1x/Week Additional (Frequency): 60 min. appointments. Duration: 3 Months - Patient/Family Goal Patient/Family Goal: To improve communication verbally and with AAC Device. - Goals that are Established Determination:: Goals will be added/modified as deemed necessary and appropriate. Therapy will be discontinued when results of re-evaluation indicate therapy is no longer needed or lack of progress has been documented. - Goal #1-5 Goal #1: Roberta will answer biographical information and pain management questions either verbally or with his AAC device with 60% acc given min verbal cues in 4 measured sessions to increased safety and ability to express his information in medical situations. Goal #2: Roberta will complete confrontation naming tasks either verbally or with his AAC device with 60% acc given min verbal or phonemic cues. Goal #3: Roberta will use aphasia word finding strategies, including but not limited to melodic intonation, with 60% acc given min verbal cues across a 5 word phrase. Goal #4: Roberta will navigate to the appropriate target (e.g., personal information, things, food) within his AAC system w/50% acc independently across 3 consecutively measured opportunities. Goal #5: Roberta will answer basic y/n questions either verbally or with his AAC device with 70% acc independently across 3 measured sessions. - Goal #6-10 Goal #6: Given high frequency and functional words, Roberta will repeat CV or VC words, first in imitation and then spontaneously at the word level with 100% accuracy across 3 therapy sessions. Goal #7: Dysphagia goals to added following objective assessment of swallowing function (FEES or MBSS). Education - Patient has Indicated that the Following Identified Educational Needs: Hearing/Vision/Speech Impaired - Patient Instruction Patient Education: Diagnosis, Treatment Plan, Goals Person Taught: Patient, Family Teaching Method: Discussion, Demonstration Response to teaching: Return demonstration, Verbalize understanding
--- NOTE | 2023-04-12 14:18 | HP.SP.DC_ITS ---
ST Discharge Summary Discharged: Discharge: ROBERTA ZEE is a 67 year old male who presented to [facility] on 01/02/23 following long history of stroke and aphasia. Pt attended initial evaluation with goals created to target use of his high-tech AAC device as well as automatic speech tasks. After evaluation, Pt attended 1 follow up visit. Remaining visits were canceled d/t kidney problems. Pt's called and reported he has been admitted to [facility]. Pt being discharged from speech therapy caseload on this date 04/12/23 d/t Pt's change in medical status. Thank you for allowing me to participate in the care of your patient. Will reevaluate at Pt?s request following script from physician.
== END 2023-02-13 19:00 | disposition home or self-care (01) ==
LOC: SP 14:00
PROVIDERS: PCP Family Medicine; Referring Provider Family Medicine; Visit Provider Family Medicine
DX: I69.320 Aphasia following cerebral infarction (principal)
CPT/HCPCS: 92507; 92523; 97110; 97161; 97166; 97530; 97760

== ENCOUNTER → 2023-05-22 | Outpatient (CLI) | payer MEDICARE, MEDICAID, SELFPAY ==
--- NOTE | 2023-05-22 14:36 | CT_ITS ---
STUDY: LOW DOSE CT LUNG CANCER SCREENING REASON FOR EXAM: Male, 67 years old. H/o Tobacco Dependency. Patient has a history of a one pack per day for 50 years. RADIATION DOSAGE (If Supplied By Facility): CTDIvol = ( 3.02 ) mGy, DLP = ( 102.32 ) mGycm TECHNIQUE: No contrast was administered. Low dose technique was utilized (average mAS-38 and kVp 120). 1.25 mm axial source images with a slice interval of 1.25-mm were reconstructed in lung windows. 2.5 mm axial source images with a slice interval of 2.5-mm were reconstructed in lung windows. 5.0 mm axial source images with a slice interval of 5.0-mm were reconstructed in soft tissue windows. COMPARISON: Comparison is made with prior study dated May 07, 2022. NODULES: No suspicious nodules are seen. Emphysema: Hyperinflation. Emphysematous changes. Stable increased linear markings with areas of confluence in the anterior right upper lobe suggestive of a scarring. Mild degree of bronchiectasis in the perihilar regions bilaterally. Mild linear scarring in the lingular segment of the left upper lobe. Endobronchial lesion: None Aorta: Atherosclerotic calcification of the aortic arch. CORONARY ARTERIES: Coronary artery calcification is seen. Status post CABG. Heart: Unremarkable. Pulmonary artery: Unremarkable. Mediastinal nodes: Unremarkable Other chest and abdominal findings: Stable cyst in the posterior midportion of the right kidney. CT/Low Dose CT Lung Screening IMPRESSION: Lung-RADS category 2 - Continue annual screening with LDCT in 12 months. IMPORTANT NOTES FOR USE: ACR Lung-RADS Version 1.1 Assessment Categories Release Date: 2018 Category: Coded 0-4 bases on nodule(s) with highest degree of suspicion. Negative screen is defined as categories 1 and 2; a positive screen is defined as categories 3 and 4. Category 3 and 4A nodules that are unchanged on interval CT should be coded as category 2, and individuals returned to screening in 12 months. Category 4X: Category 3 or 4 nodules with additional imaging findings that increase the suspicion of lung cancer, such as spiculation, GGN that doubles in size in 1 year, enlarged lymph notes, etc. Category Modifiers: S (significant finding unrelated to lung cancer) Electronically Signed: Peter Soto MD at 11:35 EDT ,
== END | disposition home or self-care (01) ==
LOC: CT 14:33
PROVIDERS: PCP Family Medicine; Visit Provider Internal Medicine Critical Care Medicine
DX: F17.211 Nicotine dependence, cigarettes, in remission (principal)
CPT/HCPCS: 71271

== ENCOUNTER 2023-08-07 13:27 | Observation (INO) | payer MEDICARE, MEDICAID, SELFPAY ==
[2023-08-07] VITALS (12 sets, daily range): BP systolic 123–142; BP diastolic 47–76; PULSE 44–83; RESP 16–18; TEMP 36.4–37; O2SAT 86–100; BMI 27.1
[2023-08-07] MEDS: Lactated Ringers 1,000 ML 15 ML IV (11:22)
--- NOTE | 2023-08-07 11:24 | PCM.HP.STD ---
HPI - General HPI Narrative ROBERTA ZEE, is a 68 M who presents for open reduction internal fixation right ankle. no changes to h and p. right ankle marked, mild-mod swelling. ok to proceed. rab and post op plan discussed to be admitted as patient has baseline poor function and weakness dt stroke. no further questions. MR#: [id number] Acct: [id number] Name: ROBERTA ZEE Rep #: [id number] : 1955 Provider: Dr. Davin Kim MD Age/Sex: 67/M [place] [facility] [place]: Signed Intake Vital Signs 05/29/2306:07 Height 5 ft 10 in Weight: 185 lb BMI 26.5 BP 112/68 Blood Pressure Location Lt brachial Position Sitting Respiration 20 H Pulse 56 L Pulse Source Monitor Temp 97.2 F L Pulse Oximetry (%) 97 Oxygen Delivery Method room air Intake Visit Reasons: RIGHT FIBULA Accompanied by: Is patient in pain?: Yes Allergies azithromycin [From Zithromax Z-Dayo] Allergy (Intermediate, Verified 07/26/23 14:50) Hiveslisinopril Allergy (Intermediate, Verified 07/26/23 14:50) Hives and diarrheaSulfa (Sulfonamide Antibiotics) Allergy (Verified 07/26/23 14:50) Hives Medications famotidine 20 mg tablet 20 mg PO QHS PRN PRN Gastric Reflux 12/21/16 [History Confirmed 07/26/23] baclofen 10 mg tablet 5 mg (1/2 x 10 mg) PO TID 02/05/17 [Rx Confirmed 07/26/23] multivitamin,[id number] (Complete Multivitamin tablet) 1 tab PO DAILY vitamin 12/04/18 [History Confirmed 07/26/23] potassium chloride 10 mEq tablet,extended release 20 meq (2 x 10 mEq) PO TID potassium #90 tabs 04/19/20 [Rx Confirmed 07/26/23] ezetimibe 10 mg tablet 10 mg PO DAILY 04/22/21 [History Confirmed 07/26/23] escitalopram oxalate 20 mg tablet 20 mg PO DAILY antidepressant 06/11/21 [History Confirmed 07/26/23] menthol 0.44 %-zinc oxide 20.6 % topical ointment (Calmoseptine) 1 applic topical TID PRN Diaper Rash #0 grams 06/17/21 [Rx Confirmed 07/26/23] amiodarone 100 mg tablet 100 mg PO DAILY HEART 07/11/21 [History Confirmed 07/26/23] albuterol sulfate 90 mcg/actuation aerosol inhaler (Ventolin HFA) 2 inh inhalation Q4H PRN shortness of breath or wheezing #18 grams 05/29/22 [Rx Confirmed 07/26/23] IV poll #1 ea 08/07/22 [Rx Confirmed 07/26/23] buspirone 10 mg tablet 10 mg PO TID ANXIETY 08/16/22 [History Confirmed 07/26/23] trazodone 50 mg tablet 50 mg PO QHS DEPRESSION 08/16/22 [History Confirmed 07/26/23] miconazole nitrate 2 % topical cream 1 applic topical BID 14 days #15 grams 08/17/22 [Rx Confirmed 07/26/23] acetaminophen 500 mg tablet 1,000 mg PO Q6H PRN Pain 11/11/22 [History Confirmed 07/26/23] amlodipine 5 mg tablet 5 mg PO DAILY 11/11/22 [History Confirmed 07/26/23] apixaban 5 mg tablet (Eliquis) 5 mg PO BID 11/11/22 [History Confirmed 07/26/23] clopidogrel 75 mg tablet (Plavix) 75 mg PO DAILY anti platelet 11/11/22 [History Confirmed 07/26/23] hydrochlorothiazide 12.5 mg tablet 12.5 mg PO DAILY diuretic 11/11/22 [History Confirmed 07/26/23] metoprolol tartrate 25 mg tablet 25 mg PO BID 30 days #30 tabs 11/15/22 [Rx Confirmed 07/26/23] fluticasone propionate 50 mcg/actuation nasal spray,suspension (Flonase Allergy Relief) 2 spray intranasal DAILY #16 grams 03/04/23 [Rx Confirmed 07/26/23] tiotropium 2.5 mcg-olodaterol 2.5 mcg/actuation mist for inhalation (Stiolto Respimat) 2 puff inhalation DAILY 05/29/23 [History Confirmed 07/26/23] [facility] Medical History (Updated 07/26/23 @ 15:17 by Davin Kim MD) Anemia Aphasia as late effect of stroke Atherosclerosis of coronary artery without angina pectoris Bimalleolar fracture of right ankle Carotid artery disease Cerebral arterial aneurysm Chronic atrial fibrillation Confusion Debility Dysphagia History of stroke History of stroke HTN (hypertension) Hyperlipidemia Hypoxia Left acute arterial ischemic stroke, MCA (middle cerebral artery) (10/31/16) snf current use of amiodarone Lower resp. 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 Davin Kim MD 07/26/23 3657. Part of today?s visit was documented by [ ], acting as scribe. ROBERTA ZEE is a 67 year old M here today for R ankle fracture. here w his , patient has aphasia. had a stroke 7 years ago, uses a cane. lives with his . normally has a brace on the right leg. eliquis for the stroke. another mild stroke 2015. Patient is here with his who is his power of litigation attorney associate. Patient is able to say yes and thank you. The patient had a fall at home twisted the ankle. Was seen and x-rays today at [facility].right LE weakness at baseline. Ortho Exam General General: Yes no acute distress Neurologic: Yes alert and Yes oriented x3 Psychologic: Yes reasonable and appropriate Right Foot/Ankle Skin/Wound: Yes CDI, Ecchymosis and Soft Tissue Swelling; No Erythema Exam: present tender to palpate - over fracture site, TTP Lateral Malleolus, TTP Medial Malleolus and TTP Deltoid Ligament; absent TTP Lisfranc Joint or TTP Peroneal Dorsiflexion 0-20: 0 degrees Plantar Flexion 0-40: 0 degrees Compartments: Compartments: soft Pulses: Dorsalis Pedis: 2 and Posterior Tibial: 2 ANKLE: wiggles toes only, cap refill under 3 seconds, no blisters, mild swelling. Supplemental Info XR 3 views of the right ankle reviewed today. Shows a bimalleolar ankle fracture. The mortise is well-maintained no obvious talar shift. no report, these on disc from [facility]. Coding Level of Care Code Off vis,new,level 4 Diagnoses Bimalleolar fracture of right ankle S82.841A Assessment and Plan Assessment and Plan (1) Bimalleolar fracture of right ankle: Status: Acute Plan: 67 m R ankle # bimalleolar... Patient is here with their power of litigation attorney associate who is deciding the healthcare decisions for the patient today. This is a closed unstable ankle fracture. The options would be nonsurgical here in a cast as well as open reduction internal fixation. Pros and cons risks and benefits of each of these methods were discussed. Cast higher risk of instability malunion delayed union as well as possible for ulcers given the patient's baseline status. That being said surgery has risks as well higher risk of infection due to the patient's past medical history bleeding and other risks. Patient's power of litigation attorney associate would like to go ahead with open reduction internal fixation right ankle. Booked and consented for the surgery today we will arrange and sent a message to Lesley in the office with regards to getting cardiology clearance they work at the [facility] will have to stop the patient's Eliquis at least 2 days before surgery. For now I have encouraged the patient to be nonweightbearing we will put the patient back in the arthrosis boot it seems to be stable and that and at least the patient can come out of that for showering and some self-care and to monitor of the skin typically I would put the patient in a below-knee 3 sided plaster [place] or fiberglass splint but I am a little bit worried about doing that in this patient. No obvious talar shift so I suspect this will be stable in the orthosis boot for now. If the patient and the caregiver does not hear back by Saturday I asked them to call the office and we will arrange for a surgery ideally on August Patient and the healthcare proxy understood no further questions or concerns. Pros and cons risks and benefits were discussed with the patient including but not limited to infection, pain, stiffness, bleeding, damage to surrounding structures, neurovascular injury, recurrence or retear, failure or wear of hardware or fixation, instability, fracture, deep vein thrombosis and pulmonary embolism, anesthetic risks, , patient dissatisfaction, need for further surgery and other risks. Patient and proxy understood and wished to proceed with surgery, and signed the informed consent documentation. [facility] Medical History (Updated 08/02/23 @ 10:53 by Magdalena Albarran) Ambulates with cane Anemia Anxiety Aphasia as late effect of stroke Atherosclerosis of coronary artery without angina pectoris Bimalleolar fracture of right ankle Bruising Cardiology follow-up encounter Carotid artery disease Cerebral arterial aneurysm Chronic atrial fibrillation Confusion CPAP (continuous positive airway pressure) dependence Debility Dysphagia Easy bruising Former smoker Gastric reflux History of atrial fibrillation History of Clostridium difficile infection History of echocardiogram History of stroke History of stroke HTN (hypertension) Hyperlipidemia Hypoxia Left acute arterial ischemic stroke, MCA (middle cerebral artery) (10/31/16) 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 tract infection Mixed obstructive and restrictive ventilatory defect Respiratory failure Sepsis Smoker Stroke/cerebrovascular accident Wears dentures Wears glasses Home Medications famotidine 20 mg tablet 20 mg PO QHS PRN PRN Gastric Reflux 12/21/16 [History Last Taken 08/15/22] baclofen 10 mg tablet 5 mg (1/2 x 10 mg) PO TID 02/05/17 [Rx Last Taken 08/07/23 09:00] multivitamin,[id number] (Complete Multivitamin tablet) 1 tab PO DAILY vitamin 12/04/18 [History Last Taken 08/06/23] potassium chloride 10 mEq tablet,extended release 20 meq (2 x 10 mEq) PO TID potassium #90 tabs 04/19/20 [Rx Last Taken 08/06/23] ezetimibe 10 mg tablet 10 mg PO DAILY 04/22/21 [History Last Taken 08/06/23] escitalopram oxalate 20 mg tablet 20 mg PO DAILY antidepressant 06/11/21 [History Last Taken 08/06/23] menthol 0.44 %-zinc oxide 20.6 % topical ointment (Calmoseptine) 1 applic topical TID PRN Diaper Rash #0 grams 06/17/21 [Rx Last Taken Unknown] amiodarone 100 mg tablet 100 mg PO DAILY HEART 07/11/21 [History Last Taken 08/07/23 09:00] albuterol sulfate 90 mcg/actuation aerosol inhaler (Ventolin HFA) 2 inh inhalation Q4H PRN shortness of breath or wheezing #18 grams 05/29/22 [Rx Last Taken 08/07/23] IV poll #1 ea 08/07/22 [Rx Last Taken Unknown] buspirone 10 mg tablet 10 mg PO TID ANXIETY 08/16/22 [History Last Taken 08/07/23 09:00] trazodone 50 mg tablet 100 mg PO QHS DEPRESSION 08/16/22 [History Last Taken 08/06/23] miconazole nitrate 2 % topical cream 1 applic topical BID 14 days #15 grams 08/17/22 [Rx Last Taken Unknown] amlodipine 5 mg tablet 5 mg PO BID 11/11/22 [History Last Taken 08/07/23 09:00] apixaban 5 mg tablet (Eliquis) 5 mg PO BID 11/11/22 [History Last Taken 08/05/23] clopidogrel 75 mg tablet (Plavix) 75 mg PO DAILY anti platelet 11/11/22 [History Last Taken Unknown] fluticasone propionate 50 mcg/actuation nasal spray,suspension (Flonase Allergy Relief) 2 spray intranasal DAILY #16 grams 03/04/23 [Rx Last Taken Unknown] tiotropium 2.5 mcg-olodaterol 2.5 mcg/actuation mist for inhalation (Stiolto Respimat) 2 puff inhalation DAILY 05/29/23 [History Last Taken 08/06/23] albuterol sulfate 2.5 mg/3 mL (0.083 %) solution for nebulization 2.5 mg continuous nebulization Q6H PRN shortness of breath or wheezing 08/02/23 [History Last Taken Unknown] aspirin 81 mg capsule 81 mg PO DAILY 08/02/23 [History Last Taken 08/03/23] atorvastatin 40 mg tablet 40 mg PO DAILY 08/02/23 [History Last Taken 08/06/23] ferrous sulfate 325 mg (65 mg iron) tablet (FeroSul) 325 mg PO DAILY 08/02/23 [History Last Taken 08/06/23] lorazepam 0.5 mg tablet 0.5 mg PO Q8H PRN agitation 08/02/23 [History Last Taken Unknown] losartan 25 mg tablet 25 mg PO DAILY 08/02/23 [History Last Taken 08/07/23 09:00] metoprolol tartrate 25 mg tablet 12.5 mg PO BID 08/02/23 [History Last Taken 08/07/23 09:00] Allergy/AdvReac Type Severity Reaction Status Date / Time azithromycin Allergy Intermediate Hives Verified 08/07/23 10:41 [From Zithromax Z-Dayo] lisinopril Allergy Intermediate Hives and Verified 08/07/23 10:41 diarrhea Sulfa (Sulfonamide Allergy Hives Verified 08/07/23 10:41 Antibiotics) Family History Mother Diabetes Heart disease Father AAA (abdominal aortic aneurysm) Heart disease Surgical History (Updated 08/02/23 @ 10:53 by Magdalena Albarran) History of tracheostomy (11/07/16) 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 Social History household members: spouse Smoking Status: Former smoker how long ago did patient quit smokin years ago, 2ppd second hand exposure: Yes alcohol intake: never substance use type: does not use caffeine: No Vital Signs Vital Signs Vital Signs: 08/07/23 10:55 08/07/23 10:55 Temperature 98.1 F Temperature Source Temporal Pulse Rate 48 L Respiratory Rate 16 Respiratory Pattern Normal Blood Pressure 129/59 H Blood Pressure Mean 82 Blood Pressure Source Monitor Blood Pressure Position Semi-Fowlers Blood Pressure Location Left Arm Pulse Ox 94 Oxygen Delivery Method Room Air Weight Weight: 189 lb Body Mass Index (BMI) 27.1 Results Lab / Micro Data 08/07/23 11:16 08/07/23 11:16
[2023-08-07] MEDS: Cefazolin 2 GM in 0.9% Normal Saline (100mL Bag) 100 ML IV (11:26)
[2023-08-07 11:27] LABS: Hematocrit 37.1 % (40-54); Hemoglobin 11.7 g/dL (13.0-16.5); Mean Corp Hgb Conc 31.5 g/dL (32-36); Mean Corpuscular Hgb 28.1 pg (27.0-32.0); Platelet Count 405 K/mm3 (150-450); RBC Distribution Width CV 14.3 % (11.6-14.6); RBC Distribution Width SD 46.1 fl (35.1-43.9); Red Blood Count 4.17 M/mm3 (4.6-6.2); White Blood Count 12.5 K/mm3 (4.4-11.0)
--- NOTE | 2023-08-07 11:55 | RAD_ITS ---
STUDY: Fluoroscopically guided ORIF procedure of the right ankle. REASON FOR EXAM: Male, 68 years old. ORIF R ANKLE TECHNIQUE: Fluoroscopy was provided for ORIF procedure of the right ankle. The radiologist was not present in the room. The reported fluoroscopy time is 165.4 seconds. Total for images were obtained. The reported radiation dose is 7.32 mgy. COMPARISON: None. FINDINGS: Images reveal fixation rito through the fibula. There are 2 fixation screws through the medial malleolus. Alignment is anatomical. RAD/Ankle min 3 Views IMPRESSION: Fluoroscopically guided procedure for ORIF through the ankle. For details please see operative report. Electronically Signed: Nancy Manjarrez MD at 16:56 EST ,
[2023-08-07 12:00] LABS: Anion Gap 8 (5-15); BUN 16 mg/dL (7-18); BUN/Creat Ratio 11.9 RATIO (10-20); Calcium,Total 8.4 mg/dL (8.5-10.1); Chloride 108 mmol/L (98-107); Creatinine, Serum 1.34 mg/dL (0.70-1.30); EST Glomerular Filtration Rate 56 mL/min (>60); Est Glom Filt Rate - Afr Amer 68 mL/min (>60); Estimated Creatinine Clearance 54.48 ml/min; Glucose 86 mg/dL (74-106); Potassium 4.5 mmol/L (3.5-5.1); Sodium Level 141 mmol/L (136-145)
--- NOTE | 2023-08-07 13:02 | PCM.OPRPT ---
Problems Associated Problem List Diagnoses (1) Bimalleolar fracture of right ankle: Report of Operation Date of Procedure: 08/07/23 Pre-Operative Diagnosis: R ankle fracture Post-Operative Diagnosis: same Surgery/Procedure Performed:: right ankle ORIF Surgeon: Davin Kim Type of Anesthesia: General Anesthesiologist: Narayan Ramey Estimated Blood Loss (mL): 20 Description of Procedure: Patient brought to room theater. Placed supine on the table. 2 g IV Ancef ministered prior to the start of the case. Spinal anesthetic induced. Plan for block postoperatively. All bony prominences padded SCD on the nonoperative leg. On the right lower extremity placed a tourniquet at the right thigh appropriately padded. Extremity prepped and draped in the usual sterile fashion chlorhexidine-based prep solution allowing over 3 minutes drying time prior to draping. Bump of the right hip as well as bump on the right ankle. Preoperative timeout performed to confirm the site patient the surgery. Began by using percutaneous technique to reduce the fibula. I then placed the guidewire for the Arthrex fibular nail system at the tip of the fibula on both AP and lateral radiographs and passed it proximal to fracture. I then opened the canal using the reamer distal end. I then used the flexible guidewire up into the center of the fibular canal on both AP and lateral radiographs. I then reamed proximal to the fracture site. I selected the appropriately sized and side nail the smaller of the 2 sizes and on the right side. Good chatter with proximal reaming. Nail was attached the jig and slid up the guidewire. Guidewire removed. I used the screwdriver to deployed the proximal tines. then placed three 2.7 mm cancellous screws at the distal aspect of the nail using the percutaneous guide and technique. Attachment guide for the nail was then removed reduction confirmed. Fibula appeared to be out to length. Did an external rotation stress test the syndesmosis as well as the mortise appears normally aligned no instability. I then made a small 1.5 inch incision centered over the medial malleolus carried dissection down through skin and subcutaneous tissue achieved meticulous hemostasis protecting the saphenous vein. I passed 2 guidewires at the medial malleolus collinear on both AP and lateral radiographs to secure the medial malleolus fragment which was already anatomically reduced. I then passed 2 4.0 mm partially-threaded cancellous screws over the guidewires and then the guidewire was removed. Final radiographs were taken AP lateral mortise view as well as performed syndesmosis stress test that was negative. Tourniquet let down this was only up for the medial malleolus aspect of the case. Wound thoroughly irrigated hemostasis achieved. Subcutaneous tissue closed with 2-0 Vicryl suture and skin with 3-0 Monocryl. Skin cleaned with wet and dry dressing followed application of Steri-Strips Adaptic gauze ABD dressing and Kerlix roll followed by a posterior fiberglass splint overwrapped with Arturo bandage with the foot in neutral. Splint to fully harden patient transferred off the operating table and taken to postanesthetic care unit in stable condition. All sponge needle instrument counts were correct no complications. Plan for the patient is to be nonweightbearing (or partial depending on need for transfers) for 6 weeks. They will also be admitted to the hospital under the hospitalist service while awaiting rehab placement. plan to go back on pre-op vte prophylaxis 24 hours [place] op. cpt 13126 Complications none Admit VTE Documentation VTE Present on Admission: No VTE Mechan Device Prophylaxis: SCD's VTE Pharm Prophylaxis ordered?: Yes Procedures Musculoskeletal [id number]: Other Procedure See Report
--- NOTE | 2023-08-07 14:54 | CASEMGMT ---
Discharge Planning A list of?SNF providers including quality and resource use data and consistent with the patient's preferred geographic region, medical needs, and insurance network was created in [facility] Guide.? This list was provided to the RN BARAHAM. Kim Meier, Discharge Planning Asst.
--- NOTE | 2023-08-07 15:51 | CASEMGMT ---
Social Work SW met with pt and and introduced self and role of SW. Pt's stating she has been providing care for pt at home and in light of recent medical changes, she cannot take care of pt at this time and feels he would benefit from short term SNF stay for rehabilitation. A list of SNF providers including quality and resource use data and consistent with the patient?s preferred geographic region, medical needs, and insurance network were provided from the [employer] Guide. Pt's states preferred providers are [facility]. [facility] 2. [facility] 3. [facility]. Pt educated that precert will be needed prior to admission to SNF. DC web marketing assistant updated and to make referrals. Plan: [facility], pending acceptance and precert SWETHA Singh
--- NOTE | 2023-08-07 16:17 | CASEMGMT ---
Addendum entered by Kim Meier 08/09/23 13:05: Patient and his updtated that [facility] has accepted. Precert/discharge procedure explained. Kim Meier, Discharge Planning Asst. Addendum entered by Kim Meier 08/09/23 11:08: Patient has been accepted by [facility] and precert has been submitted. SW updated. Kim Meier Discharge Planning Asst. Original Note: Discharge Planning Referrals sent to [facility] via [facility]. Kim Meier, Discharge Planning Asst.
[2023-08-07] MEDS: Potassium Chloride Oral Tablet 20 MEQ PO (16:48)
[2023-08-07] MEDS: Ipratropium/Albuterol Sulfate 3 ML AMPUL.NEB INHALATION (19:03)
--- NOTE | 2023-08-07 19:43 | PN.HOSP_ITS ---
Reason for Visit Reason for Visit: Diagnoses Displaced bimalleolar fracture of right lower leg, initial encounter for closed fracture (08/07/23) Encounter for other preprocedural examination (08/07/23) Subjective Subjective 68-year-old male with history of atrial fibrillation, expressive aphasia as a result of a previous stroke, CVA, hypertension, CAD s/p CABG, DARON on hs O2 presented to [facility] 08/07/2023 for a right ankle ORIF with Dr. Kim. He underwent uneventful surgery and hospitalist contacted for postop medical management. Patient evaluated at bedside with present, patient with chronic expressive aphasia due to previous CVA but did not indicate any distress and resting comfortably. No new specific complaints or concerns voiced Objective Data Objective Data Vital Signs: Vital Signs Temp Pulse Resp BP Pulse Ox O2 Del Method O2 Flow Rate 98.6 F 83 18 123/66 H 96 Nasal Cannula 4 08/07/23 18:08 08/07/23 19:03 08/07/23 19:03 08/07/23 18:08 08/07/23 19:03 08/07/23 19:03 08/07/23 19:03 Oxygen Flow Rate (L/min) 4 Oxygen Delivery Method Nasal Cannula Weight: 85.7 kg Body Mass Index (BMI) 27.1 Intake & Output: Intake and Output for Last 24 Hours 08/05/23 08/06/23 08/07/23 23:59 23:59 23:59 Intake Total 110 / 110 Balance 110 / 110 Lab / Micro Data 08/07/23 11:16 08/07/23 11:16 Labs: Laboratory Results - last 24 hr 08/07/23 11:16: WBC 12.5 H, RBC 4.17 L, Hgb 11.7 L, Hct 37.1 L, MCV 89.0, MCH 28.1, MCHC 31.5 L, RDW Std Deviation 46.1 H, RDW Coeff of Makayla 14.3, Plt Count 405, MPV 10.0, Sodium 141, Potassium 4.5, Chloride 108 H, Carbon Dioxide 25.0, Anion Gap 8, BUN 16, Creatinine 1.34 H, Estim Creat Clear Calc 54.48, Est GFR (MDRD) Af Amer 68, Est GFR (MDRD) Non-Af 56 L, BUN/Creatinine Ratio 11.9, Glucose 86, Calcium 8.4 L Radiography Diagnostic Testing: Radiology Impression Ankle X-Ray 08/07/23 11:55 IMPRESSION: Fluoroscopically guided procedure for ORIF through the ankle. For details please see operative report. Electronically Signed: Nancy Manjarrez MD at 16:56 EST Reading Location ID and State: [address] [place] [address] , Service support , Physical Exam Narrative General: Alert,no apparent distress HEENT: Atraumatic Eyes: Anicteric, normal conjunctiva Neck: Supple Respiratory: Clear to auscultation bilaterally, normal respiratory effort Cardiovascular: Regular rate GI: Soft, nontender, nondistended Musculoskeletal: Left ankle wrapped Neuro: Chronic expressive aphasia Skin: No rashes appreciated Psych: Cooperative Assessment & Plan Assessment/Plan (1) Ankle fracture: (2) Atherosclerosis of coronary artery without angina pectoris: QUALIFIERS: Coronary Disease-Associated Artery/Lesion type: [place] artery [place] vs. transplanted heart: [place] heart Qualified Code(s): I25.10 - Atherosclerotic heart disease of [place] coronary artery without angina pectoris (3) Carotid artery disease: QUALIFIERS: Laterality: unspecified laterality Qualified Code(s): I77.9 - Disorder of arteries and arterioles, unspecified (4) History of stroke: (5) HTN (hypertension): QUALIFIERS: Hypertension type: essential hypertension Qualified Code(s): I10 - Essential (primary) hypertension (6) Sleep apnea: QUALIFIERS: Sleep apnea type: central sleep apnea associated with underlying condition Qualified Code(s): G47.37 - Central sleep apnea in conditions classified elsewhere PLAN: Plan #Postop right ankle ORIF -On 08/07/[address] Kim -Management per ortho -PT/OT -Patient will likely need placement given baseline functional status -Per documentation patient to be nonweightbearing or partial weightbearing [facility] on need for transfers for 6 weeks #Hx CVA -Pt to resume eliquis tomorrow -Continue other home medications #Hx CAD s/p CABG -Continue home medications aspirin and eliquis #Hx afib -On amio and BB, continue -Resume AC tomorrow at timing discretion of ortho #Anxiety/depression -Continue home medications # DARON -Has not tolerated CPAP in the past so uses home O2 nightly, continue this #CKD IIIa -Appears to be at baseline -Continue supportive care #DVT ppx: Patient to resume Eliquis tomorrow Felecia Burns MD Time spent in the patient's overall evaluation,decision-making process, review of diagnostic data, adjustment of management, discussion with other providers, nursing nursing and ancillary staff involved in patient's care documentation, 40 Minutes Charges/Coding Visit Charges Inpatient E&M: 70530 Subs Hosp L2
[2023-08-07] MEDS: busPIRone 5 MG Tablet 10 MG PO (20:13)
[2023-08-07] MEDS: traZODone 100 MG Tablet PO (20:13)
[2023-08-07] MEDS: Oxycodone/Apap 5/325 Tablet PO (20:14)
[2023-08-07] MEDS: Atorvastatin Calcium 40 MG Tablet PO (20:15)
[2023-08-07] MEDS: amLODIPine 5 MG Tablet PO (20:15)
[2023-08-07] MEDS: Metoprolol Tartrate 25 MG Tablet 12.5 MG PO (20:16)
[2023-08-08] VITALS (9 sets, daily range): BP systolic 114–144; BP diastolic 63–70; PULSE 62–90; RESP 18–20; TEMP 36.6–36.9; O2SAT 94–96; BMI 27.1
[2023-08-08] MEDS: busPIRone 5 MG Tablet 10 MG PO ×3 (06:18→22:40)
[2023-08-08] MEDS: Ipratropium/Albuterol Sulfate 3 ML AMPUL.NEB INHALATION ×2 (07:03→21:18)
[2023-08-08] MEDS: Aspirin 81 MG TAB.CHEW PO (08:26)
[2023-08-08] MEDS: Potassium Chloride Oral Tablet 20 MEQ PO ×2 (08:26→17:01)
[2023-08-08] MEDS: Amiodarone 200 MG Tablet 100 MG PO (08:27)
[2023-08-08] MEDS: Ferrous Sulfate 325 MG Tablet PO (08:27)
[2023-08-08] MEDS: Losartan Potassium 25 MG Tablet PO (08:28)
[2023-08-08] MEDS: Escitalopram Oxalate 20 MG Tablet PO (08:28)
[2023-08-08] MEDS: Metoprolol Tartrate 25 MG Tablet 12.5 MG PO ×2 (08:30→22:41)
[2023-08-08] MEDS: Ezetimibe 10 MG Tablet PO (08:31)
[2023-08-08] MEDS: amLODIPine 5 MG Tablet PO ×2 (08:31→22:40)
[2023-08-08] MEDS: LORazepam 0.5 MG Tablet PO (08:41)
[2023-08-08] MEDS: Oxycodone/Apap 5/325 Tablet PO ×2 (08:41→09:22)
--- NOTE | 2023-08-08 10:34 | CASEMGMT ---
Social Work Pt's inquiring about progress of SNF placement. SW updated pt's that referral has been sent to [place] but they will not review until pt is seen by therapy. PT/OT evaluations have been ordered and once completed will be sent to [place] for referral. Pt's understanding. Plan: [facility], pending acceptance and precert SWETHA Singh
--- NOTE | 2023-08-08 12:04 | PCM.PN.ORT ---
Subjective Subjective patient in pain per nursing staff after block wore off, last percocet 9am, nurse states cap refill good and no other concerns. conversation today at 12 noon. Objective Data Objective Data Vital Signs: Vital Signs Temp Pulse Resp BP Pulse Ox O2 Del Method O2 Flow Rate 97.9 F 62 18 144/70 H 94 Nasal Cannula 2 08/08/23 09:03 08/08/23 09:03 08/08/23 09:03 08/08/23 09:03 08/08/23 09:03 08/08/23 09:03 08/08/23 09:03 Oxygen Flow Rate (L/min) 2 Oxygen Delivery Method Nasal Cannula Weight: 188 lb 14.978 oz Body Mass Index (BMI) 27.1 Intake & Output: Intake and Output for Last 24 Hours 08/06/23 08/07/23 08/08/23 23:59 23:59 23:59 Intake Total 110 / 110 Output Total 800 / 800 Balance 110 / 110 -800 / -800 Lab / Micro Data 08/07/23 11:16 08/07/23 11:16 Radiography Diagnostic Testing: Radiology Impression Ankle X-Ray 08/07/23 11:55 IMPRESSION: Fluoroscopically guided procedure for ORIF through the ankle. For details please see operative report. Electronically Signed: Nancy Manjarrez MD at 16:56 EST , Assessment & Plan Assessment/Plan (1) Ankle fracture: PLAN: Plan for pain rest ice elevate, dc percocet, try scheduled tylenol and prn oxycodone.
--- NOTE | 2023-08-08 12:10 | NURSING ---
spoke with Walt in Rx and requested that oxy ir be available LUCÍA d/t pt pain level 7-10
[2023-08-08] MEDS: oxyCODONE 5 MG Tablet 10 MG PO ×2 (12:28→22:39)
[2023-08-08] MEDS: Acetaminophen 500 MG Tablet 1000 MG PO ×2 (12:29→22:41)
[2023-08-08 13:01] LABS: Bacteria 0 SEEN /hpf (None Seen); Mucous, Urine 0 SEEN /hpf (<or=2+); Red Blood Cells-Urine 0 SEEN /hpf (0-5); Squamous Epithelial Cells - UA 0 SEEN /hpf (0-5); White Blood Cells 0 SEEN /hpf (0-5)
[2023-08-08 13:24] LABS: Color, Urine Yellow (Yellow); Glucose, Dipstick Normal (Normal); Ketone-Dipstick Negative (Negative); Leukocyte Esterase-Dipstick Negative /ul (Negative); Nitrite-Dipstick Negative (Negative); Occult Blood-Urine Negative /ul (Negative); Protein-Dipstick 15 mg/dl (Negative); Specific Gravity, Urine 1.025 (1.002-1.030); Urine Bilirubin Dipstick Negative (Negative); Urine Clarity Clear (Clear); Urine Urobilinogen Normal (Normal)
--- NOTE | 2023-08-08 14:35 | CASEMGMT ---
Met with patient and his to complete BERTRAND form. BERTRAND form explained to both who voiced understanding and signed form. Original form placed in pt?s chart and copy provided to?patient. Kim Meier, Discharge Planning Asst
--- NOTE | 2023-08-08 14:53 | PN.HOSP_ITS ---
Subjective Subjective Awake but unable to answer questions. Objective Data Objective Data Vital Signs: Vital Signs Temp Pulse Resp BP Pulse Ox O2 Del Method O2 Flow Rate 36.6 C 62 18 144/70 H 94 Nasal Cannula 2 08/08/23 09:03 08/08/23 09:03 08/08/23 09:03 08/08/23 09:03 08/08/23 09:03 08/08/23 09:03 08/08/23 09:03 Oxygen Flow Rate (L/min) 2 Oxygen Delivery Method Nasal Cannula Weight: 85.7 kg Body Mass Index (BMI) 27.1 Intake & Output: Intake and Output for Last 24 Hours 08/06/23 08/07/23 08/08/23 23:59 23:59 23:59 Intake Total 110 / 110 Output Total 800 / 800 Balance 110 / 110 -800 / -800 Lab / Micro Data 08/07/23 11:16 08/07/23 11:16 Labs: Laboratory Results - last 24 hr 08/08/23 12:50: Urine Color Yellow, Urine Clarity Clear, Urine pH 5.0, Ur Specific [place] 1.025, Urine Protein 15 H, Urine Glucose (UA) Normal, Urine Ketones Negative, Urine Occult Blood Negative, Urine Nitrite Negative, Urine Bilirubin Negative, Urine Urobilinogen Normal, Ur Leukocyte Esterase Negative, Urine RBC 0 SEEN, Urine WBC 0 SEEN, Ur Squamous Epith Cells 0 SEEN, Urine Bacteria 0 SEEN, Urine Mucus 0 SEEN Radiography Diagnostic Testing: Radiology Impression Ankle X-Ray 08/07/23 11:55 IMPRESSION: Fluoroscopically guided procedure for ORIF through the ankle. For details please see operative report. Electronically Signed: Nancy Manjarrez MD at 16:56 EST , Physical Exam Const no apparent distress Constitutional Narrative: pleasantly confused. Says yes, yes, yes over and over. HEENT head/scalp atraumatic and moist oral mucous membranes Assessment & Plan Assessment/Plan (1) Dysuria: PLAN: urine is cloudy, but on UA, the urine is concentrated. No sign of infection. Encourage increase oral fluid intake. No additional work up. (2) Constipation: PLAN: Add Dulolax and Colace PLAN: Plan Ankle fracture: per orthopaedics Medically stable for discharge. Hospitalist service will sign off. Call with questions. DW pt's at bedside. Charges/Coding Visit Charges Inpatient E&M: 40106 Subs Hosp L1
[2023-08-08] MEDS: APIXABAN 5 MG TABLET PO (17:01)
[2023-08-08] MEDS: Docusate Sodium 100 MG Capsule PO (17:03)
[2023-08-08] MEDS: Bisacodyl 5 MG Tablet PO (17:04)
[2023-08-08] MEDS: traZODone 100 MG Tablet PO (22:40)
[2023-08-08] MEDS: Atorvastatin Calcium 40 MG Tablet PO (22:40)
[2023-08-09] VITALS (10 sets, daily range): BP systolic 117–151; BP diastolic 50–59; PULSE 55–80; RESP 16–20; TEMP 36.7–37.1; O2SAT 85–96
[2023-08-09] MEDS: busPIRone 5 MG Tablet 10 MG PO ×2 (05:28→14:17)
[2023-08-09] MEDS: oxyCODONE 5 MG Tablet 10 MG PO (05:29)
[2023-08-09] MEDS: Acetaminophen 500 MG Tablet 1000 MG PO ×2 (05:29→14:17)
[2023-08-09] MEDS: Ipratropium/Albuterol Sulfate 3 ML AMPUL.NEB INHALATION ×3 (06:46→18:47)
[2023-08-09] MEDS: Aspirin 81 MG TAB.CHEW PO (08:17)
[2023-08-09] MEDS: Ferrous Sulfate 325 MG Tablet PO (08:17)
[2023-08-09] MEDS: Potassium Chloride Oral Tablet 20 MEQ PO ×3 (08:17→16:40)
[2023-08-09] MEDS: Metoprolol Tartrate 25 MG Tablet 12.5 MG PO (08:18)
[2023-08-09] MEDS: amLODIPine 5 MG Tablet PO (08:18)
[2023-08-09] MEDS: Losartan Potassium 25 MG Tablet PO (08:18)
[2023-08-09] MEDS: Escitalopram Oxalate 20 MG Tablet PO (08:18)
[2023-08-09] MEDS: Amiodarone 200 MG Tablet 100 MG PO (08:24)
[2023-08-09] MEDS: APIXABAN 5 MG TABLET PO (08:25)
[2023-08-09] MEDS: Ezetimibe 10 MG Tablet PO (08:25)
[2023-08-09] MEDS: Docusate Sodium 100 MG Capsule PO (08:29)
[2023-08-09] MEDS: Bisacodyl 5 MG Tablet PO (08:29)
[2023-08-09] MEDS: oxyCODONE 5 MG Tablet PO (13:21)
--- NOTE | 2023-08-09 13:29 | PCM.PN.ORT ---
Subjective Subjective pod 2 ankle ORIF. patient replies yes yes as usual. no concerns noted. Objective Data Objective Data Vital Signs: Vital Signs Temp Pulse Resp BP Pulse Ox O2 Del Method O2 Flow Rate 98.2 F 59 L 18 128/53 H 92 Nasal Cannula 2 08/09/23 11:45 08/09/23 13:27 08/09/23 13:27 08/09/23 11:45 08/09/23 11:45 08/09/23 11:45 08/09/23 11:45 Oxygen Flow Rate (L/min) 2 Oxygen Delivery Method Nasal Cannula Weight: 188 lb 14.978 oz Body Mass Index (BMI) 27.1 Intake & Output: Intake and Output for Last 24 Hours 08/07/23 08/08/23 08/09/23 23:59 23:59 23:59 Intake Total 224.5 / 224.5 300 / 300 275 / 275 Output Total 1200 / 1200 225 / 225 Balance 224.5 / 224.5 -900 / -900 50 / 50 Lab / Micro Data 08/07/23 11:16 08/07/23 11:16 Labs: Laboratory Results - last 24 hr 08/08/23 12:50: Urine RBC 0 SEEN, Urine WBC 0 SEEN, Ur Squamous Epith Cells 0 SEEN, Urine Bacteria 0 SEEN, Urine Mucus 0 SEEN Micro: Microbiology 08/08/23 12:50 Urine, Random Urine Culture - Preliminary Culture exhibits no growth. Physical Exam Const alert, no apparent distress and well nourished Extremity normal capillary refill and no calf tenderness Extremity Narrative: foot warm, well perfused, no skin breakdown or bleeding through dressing, wiggles toes and picks up the leg easily. Assessment & Plan Assessment/Plan (1) Ankle fracture: PLAN: POD 2 ankle ORIF. pending placement and mobilization. CCM.
--- NOTE | 2023-08-09 15:24 | PCM.DC.SUM ---
Providers Date of Admission: 08/07/23 Primary Care Physician: Dr. Conrad Arroyo MD Consultations 08/07/23 13:17 Consult: Hospitalist Routine Consulting Provider: Felecia Burns Reason for Consult: post op ankle surgery admission, multiple med hx EMERGENT Consult: No MD Notified: Yes Date Notified: 08/07/23 Time Notified: 13:45 Method of Notification: Text Reason For Visit: Right ankle open reduction internal Diagnosis Discharge Diagnosis (1) Ankle fracture: Status: Acute Code(s): S82.899A - Other fracture of unspecified lower leg, initial encounter for closed fracture Plan: POD 2 ankle ORIF. pending placement and mobilization. CCM. Medications at Discharge Home Medications famotidine 20 mg tablet 20 mg PO QHS PRN PRN Gastric Reflux 12/21/16 baclofen 10 mg tablet 5 mg (1/2 x 10 mg) PO TID 02/05/17 multivitamin,[id number] (Complete Multivitamin tablet) 1 tab PO DAILY vitamin 12/04/18 potassium chloride 10 mEq tablet,extended release 20 meq (2 x 10 mEq) PO TID potassium #90 tabs 04/19/20 ezetimibe 10 mg tablet 10 mg PO DAILY 04/22/21 escitalopram oxalate 20 mg tablet 20 mg PO DAILY antidepressant 06/11/21 menthol 0.44 %-zinc oxide 20.6 % topical ointment (Calmoseptine) 1 applic topical TID PRN Diaper Rash #0 grams 06/17/21 amiodarone 100 mg tablet 100 mg PO DAILY HEART 07/11/21 albuterol sulfate 90 mcg/actuation aerosol inhaler (Ventolin HFA) 2 inh inhalation Q4H PRN shortness of breath or wheezing #18 grams 05/29/22 IV poll #1 ea 08/07/22 buspirone 10 mg tablet 10 mg PO TID ANXIETY 08/16/22 trazodone 50 mg tablet 100 mg PO QHS DEPRESSION 08/16/22 miconazole nitrate 2 % topical cream 1 applic topical BID 14 days #15 grams 08/17/22 amlodipine 5 mg tablet 5 mg PO BID 11/11/22 apixaban 5 mg tablet (Eliquis) 5 mg PO BID 11/11/22 clopidogrel 75 mg tablet (Plavix) 75 mg PO DAILY anti platelet 11/11/22 fluticasone propionate 50 mcg/actuation nasal spray,suspension (Flonase Allergy Relief) 2 spray intranasal DAILY #16 grams 03/04/23 tiotropium 2.5 mcg-olodaterol 2.5 mcg/actuation mist for inhalation (Stiolto Respimat) 2 puff inhalation DAILY 05/29/23 albuterol sulfate 2.5 mg/3 mL (0.083 %) solution for nebulization 2.5 mg continuous nebulization Q6H PRN shortness of breath or wheezing 08/02/23 aspirin 81 mg capsule 81 mg PO DAILY 08/02/23 atorvastatin 40 mg tablet 40 mg PO DAILY 08/02/23 ferrous sulfate 325 mg (65 mg iron) tablet (FeroSul) 325 mg PO DAILY 08/02/23 lorazepam 0.5 mg tablet 0.5 mg PO Q8H PRN agitation 08/02/23 losartan 25 mg tablet 25 mg PO DAILY 08/02/23 metoprolol tartrate 25 mg tablet 12.5 mg PO BID 08/02/23 Weight / BMI Weight Weight: 188 lb 14.978 oz Body Mass Index (BMI) 27.1 ABG / Lab / Microbiology Data 08/07/23 11:16 08/07/23 11:16 Microbiology: Microbiology 08/08/23 12:50 Urine, Random Urine Culture - Preliminary Culture exhibits no growth. D/C Instructions Discharge Diet: No restrictions Weight Bearing Status: Partial weight bearing Call your doctor if your incision/area has: Continuous Slow Oozing, Sudden Increased Bleeding, Increased Pain/ Swelling, Increased Redness, Foul Smelling Discharge and Swelling at the incision site Remove Dressing in: leave in place till F/U Please Follow Up With: Davin Kim MD When: 2 weeks Meaningful Use Info Meaningful Use Diagnoses (Choose all that apply): None applicable Discharge Plan Admission Admit Date/Time: 08/07/23 13:27 Attending Provider: Davin Kim Primary Care Provider: Conrad Arroyo Consulting Providers: Felecia Burns; Davin Kim; Dov Marin Discharge Orders/Prescriptions Prescriptions: No Action Complete Multivitamin tablet 1 tab PO DAILY potassium chloride 10 mEq tablet extended release 20 meq PO TID Qty: 90 12RF albuterol sulfate [Ventolin HFA] 90 mcg/actuation HFA aerosol inhaler 2 inh inhalation Q4H PRN (Reason: shortness of breath or wheezing) Qty: 18 6RF Stiolto Respimat 2.5-2.5 mcg/actuation mist 2 puff inhalation DAILY famotidine 20 MG tablet 20 mg PO QHS PRN PRN (Reason: Gastric Reflux) Patient Comments: reduce acid baclofen 10 MG tablet 5 mg PO TID 0RF Patient Comments: muscle relaxant ezetimibe 10 mg tablet 10 mg PO DAILY Patient Comments: TAKE 1 TABLET BY MOUTH ONCE DAILY escitalopram oxalate 20 mg Tablet 20 mg PO DAILY menthol-zinc oxide [Calmoseptine] 0.44-20.6 % Ointment 1 applic topical TID PRN (Reason: Diaper Rash) Qty: 0 0RF Protocol: *Topical Application Instructions APPLICATION INSTRUCTIONS: scrotum/luci-rectal area prn amiodarone 100 mg tablet 100 mg PO DAILY Patient Comments: TAKE 1 TABLET BY MOUTH ONCE DAILY. DO NOT TAKE IF HEART RATE IS LESS THAN 40. trazodone 50 mg tablet 100 mg PO QHS Patient Comments: take 1 tablet by mouth at bedtime buspirone 10 mg tablet 10 mg PO TID Patient Comments: TAKE 1 TABLET BY MOUTH THREE TIMES DAILY miconazole nitrate 2 % Cream 1 applic topical BID 14 Days Qty: 15 0RF Protocol: *Topical Application Instructions APPLICATION INSTRUCTIONS: Apply to erythema on glans of penis BID amlodipine 5 mg Tablet 5 mg PO BID Eliquis 5 mg tablet 5 mg PO BID Patient Comments: TAKE ONE (1) TABLET BY MOUTH TWICE DAILY clopidogrel [Plavix] 75 mg tablet 75 mg PO DAILY albuterol sulfate 2.5 mg /3 mL (0.083 %) solution for nebulization 2.5 mg continuous nebulization Q6H PRN (Reason: shortness of breath or wheezing) Patient Comments: INHALE 1 VIAL VIA NEBULIZER EVERY 4 HOURS NEEDED FOR WHEEZING OR SHORTNESS OF BREATH *USE OVER 5-15 MINUTES* ferrous sulfate [FeroSul] 325 mg (65 mg iron) tablet 325 mg PO DAILY Patient Comments: take 1 tablet by mouth once daily losartan 25 mg tablet 25 mg PO DAILY Patient Comments: take 1 tablet by mouth once daily aspirin 81 mg capsule 81 mg PO DAILY atorvastatin 40 mg tablet 40 mg PO DAILY Patient Comments: TAKE 1 TABLET BY MOUTH ONCE DAILY lorazepam 0.5 mg tablet 0.5 mg PO Q8H PRN (Reason: agitation) Patient Comments: take 1 to 2 tablets by mouth three times a day if needed metoprolol tartrate 25 mg tablet 12.5 mg PO BID Rx Instructions: hold if heart rate is less than 60 (DME) IV poll See Rx Instructions .Route .MEDSUPPLY Qty: 1 0RF Rx Instructions: As directed fluticasone propionate [Flonase Allergy Relief] 50 mcg/actuation spray,suspension 2 spray INTRANASAL DAILY Qty: 16 6RF Referrals / Follow Up: Conrad Arroyo MD [Primary Care Provider] - Davin Kim MD [Med Staff - Active Staff] - Disposition Disposition (needs filled in before D/C Order can be placed): Group Home Facility
--- NOTE | 2023-08-09 15:49 | PCM.TXEXTCAR ---
Diet Diet Order/Speech Therapy: 08/07/23 15:51 Diet: Regular - General Is pt able to select menu?: Yes Diet Comments: no straws Wound(s) RT ANKLE: Wound Type: Surgical Incision Therapies Weight Bearing: Partial weight bearing Physical Therapy: Eval and Treat Occupational Therapy: Eval and Treat Problem/Diagnosis (1) Ankle fracture: Status: Acute Code(s): S82.899A - Other fracture of unspecified lower leg, initial encounter for closed fracture Plan: POD 2 ankle ORIF. pending placement and mobilization. CCM. Plan partial WB Allergies/Procedures Done in Hospital Allergies azithromycin [From Zithromax Z-Dayo] Allergy (Intermediate, Verified 08/07/23 10:41) Hives lisinopril Allergy (Intermediate, Verified 08/07/23 10:41) Hives and diarrhea Sulfa (Sulfonamide Antibiotics) Allergy (Verified 08/07/23 10:41) Hives Type of Care/Length of Stay Estimated LOS: Convalescent Care Less Than 30 days Type of Care Needed: Skilled Rehab Potential: Good Prognosis: Good Additional Orders/Day of Discharge Day of Discharge: 08/09/23 Follow Up Care Please Follow Up With: Davin Kim MD When: 2 weeks Discharge Plan Admission Admit Date/Time: 08/07/23 13:27 Attending Provider: Davin Kim Primary Care Provider: Conrad Arroyo Consulting Providers: Felecia Burns; Davin Kim; Dov Marin Discharge Orders/Prescriptions Prescriptions: No Action Complete Multivitamin tablet 1 tab PO DAILY potassium chloride 10 mEq tablet extended release 20 meq PO TID Qty: 90 12RF albuterol sulfate [Ventolin HFA] 90 mcg/actuation HFA aerosol inhaler 2 inh inhalation Q4H PRN (Reason: shortness of breath or wheezing) Qty: 18 6RF Stiolto Respimat 2.5-2.5 mcg/actuation mist 2 puff inhalation DAILY famotidine 20 MG tablet 20 mg PO QHS PRN PRN (Reason: Gastric Reflux) Patient Comments: reduce acid baclofen 10 MG tablet 5 mg PO TID 0RF Patient Comments: muscle relaxant ezetimibe 10 mg tablet 10 mg PO DAILY Patient Comments: TAKE 1 TABLET BY MOUTH ONCE DAILY escitalopram oxalate 20 mg Tablet 20 mg PO DAILY menthol-zinc oxide [Calmoseptine] 0.44-20.6 % Ointment 1 applic topical TID PRN (Reason: Diaper Rash) Qty: 0 0RF Protocol: *Topical Application Instructions APPLICATION INSTRUCTIONS: scrotum/luci-rectal area prn amiodarone 100 mg tablet 100 mg PO DAILY Patient Comments: TAKE 1 TABLET BY MOUTH ONCE DAILY. DO NOT TAKE IF HEART RATE IS LESS THAN 40. trazodone 50 mg tablet 100 mg PO QHS Patient Comments: take 1 tablet by mouth at bedtime buspirone 10 mg tablet 10 mg PO TID Patient Comments: TAKE 1 TABLET BY MOUTH THREE TIMES DAILY miconazole nitrate 2 % Cream 1 applic topical BID 14 Days Qty: 15 0RF Protocol: *Topical Application Instructions APPLICATION INSTRUCTIONS: Apply to erythema on glans of penis BID amlodipine 5 mg Tablet 5 mg PO BID Eliquis 5 mg tablet 5 mg PO BID Patient Comments: TAKE ONE (1) TABLET BY MOUTH TWICE DAILY clopidogrel [Plavix] 75 mg tablet 75 mg PO DAILY albuterol sulfate 2.5 mg /3 mL (0.083 %) solution for nebulization 2.5 mg continuous nebulization Q6H PRN (Reason: shortness of breath or wheezing) Patient Comments: INHALE 1 VIAL VIA NEBULIZER EVERY 4 HOURS NEEDED FOR WHEEZING OR SHORTNESS OF BREATH *USE OVER 5-15 MINUTES* ferrous sulfate [FeroSul] 325 mg (65 mg iron) tablet 325 mg PO DAILY Patient Comments: take 1 tablet by mouth once daily losartan 25 mg tablet 25 mg PO DAILY Patient Comments: take 1 tablet by mouth once daily aspirin 81 mg capsule 81 mg PO DAILY atorvastatin 40 mg tablet 40 mg PO DAILY Patient Comments: TAKE 1 TABLET BY MOUTH ONCE DAILY lorazepam 0.5 mg tablet 0.5 mg PO Q8H PRN (Reason: agitation) Patient Comments: take 1 to 2 tablets by mouth three times a day if needed metoprolol tartrate 25 mg tablet 12.5 mg PO BID Rx Instructions: hold if heart rate is less than 60 (DME) IV poll See Rx Instructions .Route .MEDSUPPLY Qty: 1 0RF Rx Instructions: As directed fluticasone propionate [Flonase Allergy Relief] 50 mcg/actuation spray,suspension 2 spray INTRANASAL DAILY Qty: 16 6RF Referrals / Follow Up: Conrad Arroyo MD [Primary Care Provider] - Davin Kim MD [Med Staff - Active Staff] - Disposition Disposition (needs filled in before D/C Order can be placed): [facility]
--- NOTE | 2023-08-09 16:13 | CASEMGMT ---
Social Work Precert has been obtained for pt to discharge to [facility]. Phone call to pt physician and pt is ready for discharge today. PASRR completed in [facility]. Phone call to pt's and notified that discharge is planned for today and precert has been obtained. updated that pt will be picked up at 7pm via [facility]. agreeable to dc plan. Disposition: [facility], skilled level of care SWETHA Singh
--- NOTE | 2023-08-09 16:37 | CASEMGMT ---
Discharge Planning Discharge orders and summary, covid results, and transport time sent to [facility] via [facility]. [facility] will transport patient by cot at 7p. Nursing and SW updated. SW updated patients . Kim Meier, Discharge Planning Asst.
--- NOTE | 2023-08-09 17:05 | NURSING ---
attempted to call report to [facility]. no answer. message left for nursing to call back for report.
== END 2023-08-09 21:01 | disposition skilled nursing facility (03) ==
LOC: SDC 13:48 → MS3 13:48
PROVIDERS: Anesthesiology; Admitting Provider Orthopaedic Surgery Sports Medicine; PCP Family Medicine; Referring Provider Orthopaedic Surgery Sports Medicine; Visit Provider Orthopaedic Surgery Sports Medicine
PROC: (CPT 27814; principal; 2023-08-07 11:10)
DX: S82.841A Displaced bimalleolar fracture of right lower leg, initial encounter for closed fracture (principal); I48.20 Chronic atrial fibrillation, unspecified; N18.31 Chronic kidney disease, stage 3a; I12.9 Hypertensive chronic kidney disease with stage 1 through stage 4 chronic kidney disease, or unspecified chronic kidney disease; Z79.01 Long term (current) use of anticoagulants; Z87.891 Personal history of nicotine dependence; Z79.02 Long term (current) use of antithrombotics/antiplatelets; G47.37 Central sleep apnea in conditions classified elsewhere; I25.10 Atherosclerotic heart disease of native coronary artery without angina pectoris; I69.320 Aphasia following cerebral infarction; E78.5 Hyperlipidemia, unspecified; W19.XXXA Unspecified fall, initial encounter; R29.898 Other symptoms and signs involving the musculoskeletal system; R30.0 Dysuria; Z79.899 Other long term (current) drug therapy
CPT/HCPCS: 27814; 01462; 64445; 73610; 76000; 80048; 81001; 85027; 87086; 87426; 93005; 94640; 94668; 94762; 97110; 97162; 97166; 97530; 97535; 99221; 99252; 99406; C1713; J7120; G0378; G0463; J2405

== ENCOUNTER → 2023-09-09 | Outpatient (REF) | payer MEDICARE, MEDICAID, SELFPAY ==
[2023-09-09 07:03] LABS: Absolute Lymphocyte Count 2.63 X10^3/uL (0.83-4.51); Absolute Neutrophil Count 3.9 X10^3/uL (2.0-7.7); Basophil# 0.08 X10^3/uL; Eosinophil# 0.69 X10^3/uL; Eosinophils% 8.4 % (0-5); Hematocrit 32.7 % (40-54); Hemoglobin 10.8 g/dL (13.0-16.5); Lymphocyte # 2.63 X10^3/ul (0.83-4.51); Mean Corpuscular Hgb 30.5 pg (27.0-32.0); Mean Corpuscular Volume 92.4 fL (80-94); Mean Platelet Vol. 10.5 fl (6.2-12.0); Monocyte# 0.86 X10^3/uL; Monocyte% 10.4 % (0-10); NRBC Flagged by Analyzer 0 % (0-5); Neutrophil # 3.91 X10^3/uL (2.7-7.7); Neutrophil % 47.5 % (47-70); Platelet Count 276 K/mm3 (150-450); RBC Distribution Width CV 14.6 % (11.6-14.6); RBC Distribution Width SD 48.7 fl (35.1-43.9); Red Blood Count 3.54 M/mm3 (4.6-6.2); White Blood Count 8.2 K/mm3 (4.4-11.0)
[2023-09-09 07:11] LABS: Anion Gap 3 (5-15); BUN 21 mg/dL (7-18); BUN/Creat Ratio 17.6 RATIO (10-20); Calcium,Total 8.6 mg/dL (8.5-10.1); Chloride 113 mmol/L (98-107); Creatinine, Serum 1.19 mg/dL (0.70-1.30); EST Glomerular Filtration Rate 65 mL/min (>60); Est Glom Filt Rate - Afr Amer 78 mL/min (>60); Glucose 86 mg/dL (74-106); Potassium 3.6 mmol/L (3.5-5.1); Sodium Level 142 mmol/L (136-145)
== END ==
LOC: OLS.WHLTCC 04:00
PROVIDERS: PCP Family Medicine; Visit Provider Internal Medicine
DX: I10 Essential (primary) hypertension (principal)
CPT/HCPCS: 36415; 80048; 85025

== ENCOUNTER 2024-01-03 20:39 | Outpatient (CLI) | payer MEDICARE, MEDICAID, SELFPAY | END 2024-01-03 23:59 | disposition home or self-care (01) | LOC: SL 20:40 | PROVIDERS: PCP Family Medicine | DX: G47.33 Obstructive sleep apnea (adult) (pediatric) (principal); Z78.9 Other specified health status; R47.01 Aphasia; R13.10 Dysphagia, unspecified | CPT/HCPCS: 92507; 95810 ==

== ENCOUNTER 2024-03-31 15:30 | Outpatient (RCR) | payer MEDICARE, MEDICAID, SELFPAY ==
--- NOTE | 2023-11-19 09:04 | HP.OTEVAL_ITS ---
Patient's Visit Information Visit Information Visit Information: ROBERTA ZEE is a 68 year old M, referred to Occupational Therapy by Dr. Davin Kim MD, with a diagnosis of CVA Right Hemiplegia. Date of Evaluation: 11/18/23 Occupational Therapist: Hansa Linn, MARIANN/Hailey, CHT Subjective Subjective: This 68 year old male was seen for OT eval with dx of CVA and right side hemiplegia. Pt is well known to our facility as he was seen in past for rehab following his initial stroke. Pt arrives with - states was ambulating with can and pt had fall trying to walk with his cane after he had some wine. states they were going to go out for the evening-but when he fell he refused to go to ER since he did have a few glasses of wine. states she elevated his leg and put ice on it. The next day he did go to ER. pt required sx. sx on Sep.07. for ORIF of right LE. pt [place] now walking with Troy walker ( Dr. Kim does not want him walking without Troy Walker) not able to reduce support with assistive device at this time. states his left shoulder and upper scapula do become tight from using left UE for functional transfers right UE no return of AROM has concerns of how tight his hand is getting. is using resting hand brace during the day and has a bioness unit she will use every other day to see if she can get hand open. with unit he can open hand but unable without unit. ADLs Comments: pt will wear resting hand brace during the day and next day will use the Bioness unit. assist with all ADLs and IADLs. ( aide helps shaves) pts does have respite ( 21 hours ) rest up to (36 hours) Pain right shoulder: Current Pain Intensity: 7 Pain Intensity Range: 8 ROM Shoulder: right UE PROM to 115* ( flaccid ) left WNL Elbow: right PROM 0/130 with noted tone Forearm: right PROM WFL noted Mod tone Wrist: right PROM WFL noted Max tone ROM Comments: pt demo with right shoulder shrug 1/4 trials- pt attempts biceps but will compensate with scapula retraction fingers are fisted no noted ext. of digits Sensation Sensation Comments: denies states full feeling right side Movement Muscle Tone: right UE- Movement Comments: pt demo with Mod tone of right forearm supination Pt demo with MOD tone right wrist ext- MOD- Max tone of digits therapist use wrist flexion positron to manually straighten fingers with slow wrist motion to increase wrist from flexion to Neutral fingers will flex noted increase in tone. Stroke Specific Quality of Life Total SS-QOL Score: 80 Quick DASH-Disab of Arm,Shoulder& Hand Quick DASH Score: 70.4525 Goals Goal:: pt will demo a increase in right elbow flexion to 90* to increase use of right UE with assistive ADLs by d/c Pt will demo a increase in digital AROM to initiate grasp of med. and small objects by d/c Goal:: pt and pts will demo understanding of PROM ex. to decrease risk of joint contractures by end of week 3. Pt will demo a reduction in right UE tone to MIN-MOD by d.c to decrease risk of skin break down. Pt and pts will demo understanding of using bracing to decrease tone by end of week 3. Goal:: pt and family will demo understanding of using adaptive eq. to increase pts interaction within his environment, to prevent contractures, and assist with ADLS by d.c Rehabilitation General Assessment: pt demo with a increase tone of right UE elbow and forearm supination. Max tone in digits- pt demo with trace of shoulder elevation not noted shoulder flexion. Due to loss of AROM of right UE this has increases pts need of Asst. with ADLs. Pt would benefit from skilled OT services 2x week for 4 weeks to decrease tone of right UE- would like to see if pt play his guitar again with adaptive equipment. Will speak with on what motion pt would need to get to be able to play as well as adaptive stand. Therapist will also problem solve with on further bracing to decrease risk of joint contractures of right hand/wrist. Pt may benefit from Botox injections to forearm to decrease the flexor contraction of right hand. Therapist discussed with pt and pts she was receptive . pt will schedule 2x week for 4 weeks for skilled OT services. Pt and pts demo understanding and agree to POC. Rehabilitation Potential: Questionable Anticipated Interventions Anticipated Interventions: A/AAROM/PROM, Orthoses, Joint Protection/Energy Conservation, Ergonomic Education, Neuro Reeducation, Education re assistive Equipment, Education re Diagnosis, Caregiver Training and Home Program Visit Plan Frequency: 2x /Week Duration: 4 Weeks TEXT: Thank you for the opportunity to evaluate your patient. For Medicare and Medicare HMO plans, please review the plan of care and approve it. It will need to be FAXED BACK to us at [phone] for Medicare purposes. Please let me know if there are questions or concerns regarding this plan of care. Physician Signature: Date:
--- NOTE | 2023-11-19 12:42 | HP.PTEVAL ---
Patient's Visit Information Visit Information Visit Information: ROBERTA ZEE is a 68 year old M referred to Physical Therapy by Dr. Davin Kim MD with a diagnosis of R ankle Fracture. Date of Evaluation: 11/18/23 Physical Therapist: Myron Gillette DPT Visit Plan Frequency: 2x /Week Duration: 6 Weeks Plan: Start with RLE strengthening, functional strengthening, quad strengthening. Gait progression with SPC vs small base quad cane. Subjective Subjective: Pt. is here today for his initial evaluation with diagnosis of R ankle fracture with ORIF. Pt. fell in Jul. he went to senior care for a few weeks. He is now back home with spouse. 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 He does not have much movement in his R UE, but is able to move with RLE, except his ankle where he has marked foot drop on his R side. Pt. arrives using WC this date. He reports no pain. Pt. does have expressive aphasia from his previous CVA. Pt's spouse reports that he has tried walking in the house by him self. Pt. had previously used a SPC for gait and was able to walk in/out grocery stores. Pt. does not have any precautions at this point in time. Objective Objective: POSTURE: Pt. is able to stand without AD, but does have a lean to the L side. This is normal for him since his CVA. Better posture noted with use of cane. PALPATION: Pt. reports no pain with palpation of RLE. No signs of infection or DVT. ROM: AROM: 0 deg throughout R ankle; knee: ext 0deg, Flexon 119deg. PROM: WNL. MMT: LLE: ankle 5/5 throughout; knee: ext 5/5, flexion 5/5; hip: flexion 5/5, abd 4/5, ext 4/5. RLE: ankle 0/5 throughout; knee: ext 4/5, flexion 4-/5; hip: flexion 4/5, abd 4-/5, ext 4/5. GAIT: Pt. was able to ambulate wtih SPC in LUE. Pt. has minimal knee flexion during R swing. Decreased B step length, R leg in ER positioning in stance. Pt. was able to ambulate 35 feet with CGA wand SPC. Pt. has decreased RLE foot clearance, but was able to clear with each step. Fatigue was limiting factor with gait. STAIRS: Pt. negotiated with step to pattern with use of 1 HR and CGA. Fatiguing. Balance/Special Test Scores Lower Extremity Functional Score: 27 TUG Test Time Seconds: 50.7 30 Second Chair Rise Test Seconds: 8 Goals Goal 1:: LTG: Pt. to be I with HEP. Goal Time Frame: 4-6 Weeks Goal 2:: LTG: Pt. to have increased R quad and glute strength increased by 1/2 grade to aid in functional mobility. Goal Time Frame: 4-6 Weeks Goal 3:: LTG: Pt. to have increased 30 sec sit to stand rep test to 13 without use of LUE for stability indicating increased BLE functional strength. Goal Time Frame: 4-6 Weeks Goal 4:: LTG: Pt. to ambulate at least 350' with SPC vs small based quad cane GABRIELE allowing for increased community ambulation. Goal Time Frame: 4-6 Weeks Goal 5:: LTG: Pt. to have improved TUG score to less than 40seconds indicating increased functional stability. Goal Time Frame: 4-6 Weeks Rehabilitation Potential Physical Therapy Diagnosis: Pt. ahs signs and symptoms consistent with general debility after a R ankle fracture late last year. He is having more difficulty with walking, endurance and stability since falling and fracturing his ankle. Pt. would benefit from PT to address the above limitations progressing back to all previous activities without limitations. Rehabilitation Potential: Good Anticipated Interventions Patient/Client Instruction: Educate patient on: Condition, Plan of Care, Risk Factors and Benefits of Fitness Program For the Purpose of:: To improve decision making, To facilitate caregiver knowledge, To improve self management, To prevent re-injury and To improve ability to perform tasks related to life management Therapeutic Exercise to Include: Strength training, Power training, Endurance training, Balance training, Body mechanics, Postural training and Gait and locomotor training For the Purpose of:: To decrease pain, To decrease swelling/inflammation, To increase ROM, To improve nutrient delivery to tissue, To increase oxygenation perfusion and To improve muscle performance and motor function Text: Thank you for the opportunity to evaluate your patient. For Medicare and Medicare HMO plans, please review the plan of care and approve it. It will need to be FAXED BACK to us at [phone] for Medicare purposes. For Medicare only, by signing this I certify the plan of care. Please let me know if there are questions or concerns regarding this plan of care. Physician Signature: Date:
--- NOTE | 2023-11-19 18:54 | HP.SP.EV_ITS ---
Visit History Visit Info Date of Eval: 11/18/23 Visit: 1 Insurance Date Limit: 08/04/24 Field Administrative Assistant: GIANLUCA History Attending Doctor: Referring Doctor: Reason for Referral: STROKE,ANKLE FX,DYSPHAGIA, APHASIA/RX HERE Medical Diagnosis: cva Previous speech therapy: Yes Results: Afshin is a 68 year old male who was seen at [facility] for a speech language and swallwoing evaluation. Pt was referred by his doctor due to ongoing communication and swallowing difficulty. Pt was accompanied by his , Vicki, who was present for the session and is his P.O.A. Other Relevant Medical History/Diagnoses/Surgery: Afshin had a CVA 7 years ago, He was in the care home for 3 months from August 08 through October. Pt was accompanied by his who is his POA. Pt has an aac device from the [facility], that he did not have present today. Pt doesn't use it often, but can use it for choosing restaurants, yes/no, Smoking Status: Former smoker Diagnosis Diagnosis: severe expressive and receptive aphasia; unspecified dysphagia Pain Is pain an issue with your current prescribed condition?: No Personal Preferred language: Slovak Patient Allergies Allergies Allergies: Allergies azithromycin [From Zithromax Z-Dayo] Allergy (Intermediate, Verified 11/04/23 15:19) Hives lisinopril Allergy (Intermediate, Verified 11/04/23 15:19) Hives and diarrhea Sulfa (Sulfonamide Antibiotics) Allergy (Verified 11/04/23 15:19) Hives Subjective Dysphagia Symptoms Reported Symptoms/Problems with: Difficulty Swallowing Liquids and Hx of Aspiration Current Diet Solids Current Diet: Mechanical Soft Current Diet Liquids Current Liquids: Thin Comments Pt Report: -: Pt's reports that the pt does not use straws. Reports of difficulty with mastication of tough food and needs assistance with using compensatory strategies re; small sips & bites, slow rate. Pt's cuts up his food smaller. No specific report of coughing and choking during meal. Pt's stated that this does happen, but pt might have allergies. Pt had a previous MBSS in 2021 and has not had updated testing since then. Pt previously had a PEG tube and trach after his CVA 7 years ago, which were removed not long after the cva. Pt has had aspiration pnuemonia three times. Objective Dysphagia Swallowing Impairment Contributing Factors to Swallowing Impairment: Difficulty Following Directions Impact Impact on Safety & Functioning: Risk for Aspiration Comments: three prior cases of aspiration pneumonia. Pt requires updated instrumental testing due to concerns for aspiration and a history of dysphagia. Pt's last instrumental assessment was an MBSS in 2021. Discussed options for instrumental testing re; MBSS and FEES. Pt's requested the FEES assessment as it can be done at [facility]. Recommendations Swallowing Treatment: Yes Diet Texture Recommendations Other: Pt's currently cuts up the pt's food into small bites due to difficulty with swallowing, evidenced by coughing and choking, with large pieces of food. Pt also avoids straws due to difficulty with thin liquids via straw per caregiver report. Safety Saftey Precautions/Swallowing Recommendations (Check all that Apply): Supervision Needed All Meals, Reduce Distractions, Needs Verbal Cues to Use Recommended Strategies, Upright Position at Least 30 Minutes After Meals, Small Sips & Bites when Eating and No Straw Results Swallowing Within Normal Limits: No Swallowing Diagnosis: Dysphagia Unspecified (R13.10) Subjective AAC AAC Subjective: Pt has an aac device from [facility] for basic communication needs. Pt can use the device to pick a place to eat, ask for food at restaurants and answer yes/no questions with help from his . Further practice to effectively utilize the device is required per pt's 's report. Objective Cog/Ling/Com Test Administered Zjwducazs-Lnecyyulok-Dltkiolinrscb Assessment Administered: Yes Bptrxhwoj-Pwfaehjkas-Uwxbiofivdbwj Assessment: Cognitive ? Linguistic skills were evaluated using patient/family interview, skilled observation and informal evaluation through tasks completed by the patient. Orientation Orientation: Person, Birthdate and Medical Diagnosis Answer Yes/No Questions Simple: Moderate Comments Comments: Yes/No Questions (provided a yes/no visual to point to to aid verbal speech): 70% acc. Pt stated yeah but pointed to the no visual while shaking his head multiple times during the assessment. Automatic Sequences Automatic Sequences: Severe Repetition Words: Severe Naming Responsive naming: Severe Conversational Tasks Conversational Tasks: Severe Comments: Pt can stated yeah and will use that as a placeholder for all other words during conversation. Pt will use intonation appropriately. Pt attempts to answer yes/no questions verbally but will say yeah even if he means no. Pt was observed to point to no and shake his head no, while saying yeah verbally. Comments Comments: Pt was able to state his full name, 's full name and with cues. Common Object Namin/30 I, increased to 2/30 with a phonetic cues and increased to 28/30 with models and max cuing. Reading Comprehension Words: Moderate Oral Reading Words: Severe Comments: Pt was unable to read single words out loud during the evaluation. Listening comprehension, selecting single words from a choice of 4 picture: 60% acc Reading comprehension, selecting single words from a choice of 4 picture: 50% acc Reference: Neuro-QoL instrument Radiation Oncology Patient Plan Plan Plan: Will recommend Pt for weekly outpatient speech therapy intervention address severe expressive & receptive aphasia and dysphagia. Pt would benefit from verbal and visual modeling, verbal/visual and tactile cuing, repeated practice, total communication strategies, and immediate feedback to improve expressive and receptive. Without skilled intervention Pt is at risk for difficulty communicating basic, medical, emergent, social wants & needs, and interacting with family/friends at home, during social interactions. Pt also would benefit from an instrumental evaluation to objectively assess his swallow function due to reports of dysphagia, a history of dysphagia and a history of aspiration pneumonia on three occassions. Recommendations Treatment Warranted: Yes Treatment Warranted: Receptive/ Expressive Language and Dysphagia Progress Prognosis: Good Frequency Frequency: 1-2x /Week Duration: 4-6 Months Goals that are Established Determination:: Goals will be added/modified as deemed necessary and appropriate. Therapy will be discontinued when results of re-evaluation indicate therapy is no longer needed or lack of progress has been documented. Goal #1-5 Goal #1: Pt will participate in a FEES study to objectively assess Pt's oropharyngeal swallow function to determine the least restrictive means of nutrition. Goal #2: Pt will name common objects with up to mod cues with 70% acc to facilitate increased communication and decreased frustration on 3 measured sessions. Goal #3: Pt will answer biographical information with up to mod cues to increase safety and ability to express information in daily & medical situations over 3 measured sessions. Goal #4: Pt will select verbally presented common words from a choice of 4 with 80% acc independently over 3 measured sessions to increase his listening comprehension. Goal #5: Pt will select a picture of a common word that matches the written text from a choice of 4 with 80% acc independently over 3 measured sessions to increase his reading comprehension. Goal #6-10 Goal #6: Patient will use total communication approach (gestures/ASL/AAC/words/pictures) for a variety of pragmatic functions such as, but not limited to, to requesting actions/objects/assistance/repetition 10 times during a 60 min session across 3 measured sessions in structured/unstructured activities. Education Patient has Indicated that the Following Identified Educational Needs: Cognitively Impaired Other Educational Needs: will need visual demo due The Patient has indicated that they have no educational or learning abilities that may effect their care.: Yes Patient Instruction Patient Education: Diagnosis, Treatment Plan and Goals Person Taught: Patient and Family Teaching Method: Discussion and Demonstration Response to teaching: Reinforcement needed
--- NOTE | 2024-02-18 13:17 | HP.PTREVAL ---
Re-Evaluation Intro: Dr. Davin Kim MD, It has been my pleasure to treat ROBERTA ZEE over the last 7 visits for R ankle Fracture. Please see the progress note below for an update on the physical therapy plan of care! Subjective Subjective: Pt. reports overall doing fine. reports that he might have fallen in the night, because she found his cane on the floor near the bathroom and he was in bed. This occurred a few weeks ago. No injury of note. Pt. otherwise has no complaints. Objective Objective/Function: TUG 31.1sec with SPC Pt. was able to ambulate 246feet before needing to sit down. Pt. reports fatigue as limiting factor, no pain. MMT: LLE: ankle 5/5 throughout; knee: ext 5/5, flexion 5/5; hip: flexion 5/5, abd 4/5, ext 4/5. RLE: ankle 0/5 throughout; knee: ext 4/5, flexion 4-/5; hip: flexion 4/5, abd 4-/5, ext 4/5. Pt. has been progressing with his balance and stability. He is walking much further. He is still very impulsive with his mobility. I would like him to have a bit better endurance with gait and better safety with use of cane. pt. and spouse agree and would like to continue with PT with focus on balance and functional mobility. Plan Plan Plan: Cont. with PT focus on functional mobility, sit to stand LE strengthening and gait progression with cane. Balance/Gait/Functional tests Balance/Special Test Scores Lower Extremity Functional Score: 27 TUG Test Time Seconds: 50.7 Tug Test: >30sec.=impaired mobility 30 Second Chair Rise Test Seconds: 8 Goals Goals Goal 1:: LTG: Pt. to be I with HEP. Goal Time Frame: 4-6 Weeks Goal 2:: LTG: Pt. to have increased R quad and glute strength increased by 1/2 grade to aid in functional mobility. Goal Time Frame: 4-6 Weeks Goal 3:: LTG: Pt. to have increased 30 sec sit to stand rep test to 13 without use of LUE for stability indicating increased BLE functional strength. Goal Time Frame: 4-6 Weeks Goal Progress: Progressing Goal 4:: LTG: Pt. to ambulate at least 350' with SPC vs small based quad cane GABRIELE allowing for increased community ambulation. Goal Time Frame: 4-6 Weeks Goal Progress: Progressing Goal 5:: LTG: Pt. to have improved TUG score to less than 40seconds indicating increased functional stability. Goal Time Frame: 4-6 Weeks Goal Progress: Goal Met Anticipated Interventions Anticipated Interventions Patient/Client Instruction: Educate patient on: Condition, Plan of Care, Risk Factors and Benefits of Fitness Program For the Purpose of:: To improve decision making, To facilitate caregiver knowledge, To improve self management, To prevent re-injury and To improve ability to perform tasks related to life management Therapeutic Exercise to Include: Strength training, Power training, Endurance training, Balance training, Body mechanics, Postural training and Gait and locomotor training For the Purpose of:: To decrease pain, To decrease swelling/inflammation, To increase ROM, To improve nutrient delivery to tissue, To increase oxygenation perfusion and To improve muscle performance and motor function Re-Evaluation Ending Re-evaluation ending: Please do not hesitate to contact me at [phone] by phone or if you have questions or concerns regarding this new plan of care! Sincerely, Myron Gillette DPT
--- NOTE | 2024-03-25 17:20 | HP.PTDCSUM ---
Discharge Summary D/C summary: It has been my pleasure to treat ROBERTA ZEE referred by Dr. Davin Kim MD, with the diagnosis of R ankle Fracture for a total of 11 visit(s). Discharge Date: 03/25/24 Please see the following information for a summary of their discharge status. Subjective Subjective: Pt. reports overall doing well. No pain noted. Pt. reports no falls or issues since starting PT. Overall Improvement % Improvement: 80 Objective Objective/Function: TU.7sec with SPC GAIT: Pt. ambulates 375' with SPC with SUP A. Pt. continues to have increased R hip ER with swing phase, but most likely due to lack of DF on R side. No LOB, but does have decreased tempo and decreased step length. 30sec sit to stand rep test: 12 without use of UEs. Overall doing well. No pain noted. I want Roberta to continue with walking with spouse and focus on mobility, quad strengthening at home. Goals Goal 1:: LTG: Pt. to be I with HEP. Goal Progress: Goal Met Goal 2:: LTG: Pt. to have increased R quad and glute strength increased by 1/2 grade to aid in functional mobility. Goal Progress: Goal Met Goal 3:: LTG: Pt. to have increased 30 sec sit to stand rep test to 13 without use of LUE for stability indicating increased BLE functional strength. Goal Progress: Progressing Goal 4:: LTG: Pt. to ambulate at least 350' with SPC vs small based quad cane GABRIELE allowing for increased community ambulation. Goal Progress: Goal Met Goal 5:: LTG: Pt. to have improved TUG score to less than 40seconds indicating increased functional stability. Goal Progress: Goal Met Plan Plan: pt. will be DC from PT at this point in time. D/C Information d/c sentence: If there are questions or concerns regarding this patient's physical therapy, please feel free to call me at [phone]. Thank you for the referral of this patient. Sincerely, Myron Gillette, DPT Balance/Gait/Functional tests Balance/Special Test Scores Lower Extremity Functional Score: 34 TUG Test Time Seconds: 18.7 Tug Test: <20 sec.=mostly independent 30 Second Chair Rise Test Seconds: 12 Improvement % Improvement: 80
--- NOTE | 2024-03-30 11:48 | SP.FEES_ITS ---
FEES Patient Information Date of Evaluation: 03/09/24 Time of Evaluation: 10:15 Diagnosis: oropharyngeal dysphagia Referring Physician: Yaneli Staff Providing this Care/Treatment:: GIANLUCA Direct Billable Minutes: 120 History: Past Medical History:: Afshin is a 68 year old male who was seen at for a swallow evaluation to determine an appropriate POC for speech therapy treatment due to reports of s/s of aspiration. Pt had a MBSS study completed in August 2021, which recommended a diet of regular/thin with the use of compensatory strategies. TX/DX History:: Yes and MBSS Subjective: Subjective:: Pt arrived for the swallow evaluation with his aid, Tete and was agreeable throughout the assessment. Current Diet: Drinks/Liquids:: Thin Foods:: Regular Medication Administration:: orally Supervision: 1:1 Close Supervision Respiratory Status Observation:: room air Dentition/Oral Hygiene: Observations:: WFL Vocal Quality: Observations:: WFL Comments:: Unable to fully assess due to difficulty with speech s.p. a cva. Cognition: Observations:: WFL Position During FEES: Position During FEES:: Upright Location: In Chair Fiberoptic Endoscope: Size: 3.4 mm Nare Used:: Right Comments: The scope was passed through the pt's right nare without difficulty. Anatomy: Velum Movement: Yes and Symmetrical Nasopharynx Tissue Description: Moist and Manley red Secretions: Description:: Thick, Clear and White Location:: Hypopharynx and Diffuse Phonation: Arytenoid Adduction: WFL Comment:: Elicited via vocal tasks Vocal Fold Adduction: WFL Comment:: Elicited via vocal tasks Penetration-Aspiration Scale Penetration-Aspiration Scale Thin Liquids by Single Straw Food/Drink Provided:: water Swallow Onset Location:: Pyriform Sinuses PAS Score: PAS Score *1 Visual Analysis of Swallowing Efficiency and Safety (VASES) after the swallow: Hypopharynx and Laryngeal Vestibule Comments:: min residue in the right pyriform sinus Additional Comments:: Poor pharyngeal contraction notes during sips of thin via straw Thin Liquids by Sequential Straw Food/Drink Provided:: water Puree Textures Food/Drink Provided:: apple sauce Swallow Onset Location:: Pyriform Sinuses PAS Score: PAS Score *1 Soft & Bite Sized Textures Food/Drink Provided:: mixed fruit with and without liquids. Swallow Onset Location:: Vallecula and Pyriform Sinuses PAS Score: PAS Score *1 Visual Analysis of Swallowing Efficiency and Safety (VASES) after the swallow: Hypopharynx Comments:: liquid residue in the right pyriform post swallow Strategies Trialed:: right head turn Regular Textures Food/Drink Provided:: cookie Swallow Onset Location:: Vallecula PAS Score: PAS Score *1 Comments:: One cookie per bite: min residue remaining in the vallecula and lateral to the epiglottis Two cookies per bite: mod residue in the right pyriform sinus Strategies Trialed:: Liquid wash via straw: pt with a PAS score of 6 during a liquid wash to clear residue from the cookie bites. Right head turn: residue on the right side of the aryepiglottic fold Right head turn + liquid wash: effective in clearing the residue Diagnosis/Impressions Diagnosis: mild oropharyngeal dysphagia Swallowing Impairment: Difficulty Following Directions, Impaired Oropharyngeal Transport, Premature Posterior Loss and Decreased Pharyngeal Contraction Recommendations Diet: Regular Textures Compensatory Strategies: Small Bites, Small Sips, Slow Rate, Right head turn when swallowing, Alternate bites/solids and sips/liquids, Sitting upright, Remain sitting upright for 30 minutes after PO intake and Assist with verbal cues to use recommended strategies Supervision: 1:1 Close Supervision Recommend Repeat Instrumental Swallow Assessment: TBD Comments: right head turn with regular textures. head turn optional for pureed and soft & bite sized foods. Need for Skilled Speech Therapy Services: Yes Education Completed: 1. Described result of evaluation. and 2. Pt understands evaluation & agrees with goals and treatment plan. Frequency Frequency: 1-2x /Week Duration: 4-6 Months Goals that are Established Determination:: Goals will be added/modified as deemed necessary and appropriate. Therapy will be discontinued when results of re-evaluation indicate therapy is no longer needed or lack of progress has been documented. Goal #1: Pt will complete oropharyngeal exercises for 10 reps, 2x/day with min cues to improve airway protection, pharyngeal contraction, and hyolaryngeal elevation and excursion as measured by pt & caregiver compliance reports over 3 sessions. Goal #2: Pt will name common objects with up to mod cues with 70% acc to f acilitate increased communication and decreased frustration on 3 measured sessions. Goal #3: Pt will answer biographical information with up to mod cues to increase safety and ability to express information in daily & medical situations over 3 measured sessions. Goal #4: Pt will select verbally presented common words from a choice of 4 with 80% acc independently over 3 measured sessions to increase his listening comprehension. Goal #5: Pt will select a picture of a common word that matches the written text from a choice of 4 with 80% acc independently over 3 measured sessions to increase his reading comprehension. Goal #6-10 Goal #6: Patient will use total communication approach (gestures/ASL/AAC/words/pictures) for a variety of pragmatic functions such as, but not limited to, to requesting actions/objects/assistance/repetition 10 times during a 60 min session across 3 measured sessions in structured/unstructured activities.
--- NOTE | 2024-03-30 12:01 | HP.SPREEV_ITS ---
Visit History Visit Info Date of Eval: 11/18/23 Visit: 1 Patient's Approved Number of Visits: 48 Insurance Date Limit: 08/04/24 [employer] Craftsman: GIANLUCA Doyle Attending Doctor: Referring Doctor: Reason for Referral: STROKE,ANKLE FX,DYSPHAGIA, APHASIA/RX HERE Medical Diagnosis: cva Previous speech therapy: Yes Results: Afshin is a 68 year old male who was seen at [facility] for a speech language and swallwoing evaluation. Pt was referred by his doctor due to ongoing communication and swallowing difficulty. Pt was accompanied by his , Vicki, who was present for the session and is his P.O.A. Other Relevant Medical History/Diagnoses/Surgery: Afshin had a CVA 7 years ago, He was in the correction for 3 months from August 08 through October. Pt was accompanied by his who is his POA. Pt has an aac device from the [facility], that he did not have present today. Pt doesn't use it often, but can use it for choosing restaurants, yes/no, Smoking Status: Former smoker Diagnosis Diagnosis: severe expressive and receptive aphasia; unspecified dysphagia Pain Is pain an issue with your current prescribed condition?: No Personal Preferred language: Andorran Patient Allergies Allergies Allergies: Allergies azithromycin (From Zithromax Z-Dayo) Allergy (Intermediate, Verified 11/04/23 15:19) Hives lisinopril Allergy (Intermediate, Verified 11/04/23 15:19) Hives and diarrhea Sulfa (Sulfonamide Antibiotics) Allergy (Verified 11/04/23 15:19) Hives Previous/Current Goals Goals 1-5 Previous Goal #1: Pt will participate in a FEES study to objectively assess Pt's oropharyngeal swallow function to determine the least restrictive means of nutrition. Goal 1 Status: Goal MET: see FEES report Previous Goal #2: Pt will name common objects with up to mod cues with 70% acc to facilitate increased communication and decreased frustration on 3 measured sessions. Goal 2 Status: Goal Progressing: animals (1-2 syllables): 0/10 I, increased to 3/10 with phrase cues, increased 6/10 with phrase cues, increased to 10/10 with verbal model. food (1-2 syllables): 0/10 I, increased to 3/10 with phrase cues, increased 4/10 with phrase cues, increased to 10/10 with verbal model. Previous Goal #3: Pt will answer biographical information with up to mod cues to increase safety and ability to express information in daily & medical situations over 3 measured sessions. Goal 3 Status: Goal Progressing: Pt was able to produce his information: Name- I Birthday- able to produce with verbal cue D for the month Age- Repeated 's Name- PC Aid's Name (Tete)- PC Son (Danial) - PC Grandson (Bryan) - Repeated Address ([address] [place] [address]) - repeated with max cues Previous Goal #4: Pt will select verbally presented common words from a choice of 4 with 80% acc independently over 3 measured sessions to increase his listening comprehension. Goal 4 Status: Goal Progressing: LC, easy level: 6/10 I, increased to 7/10 with a additional verbal prompt and a written word Previous Goal #5: Pt will select a picture of a common word that matches the written text from a choice of 4 with 80% acc independently over 3 measured sessions to increase his reading comprehension. Goal 5 Status: Goal Progressing: Reading comprehension, easy level: 5/10 I, increased to 9/10 with a verbal prompt. Goals 6-10 Previous Goal #6: Patient will use total communication approach (gestures/A SL/AAC/words/pictures) for a variety of pragmatic functions such as, but not limited to, to requesting actions/objects/assistance/repetition 10 times during a 60 min session across 3 measured sessions in structured/unstructured activities. Goal 6 Status: Goal Progressing: ST edited pt's aac device to make the device more user friendly and applicable to aid him in his ADLS. Pt answered Yes/No questions from ST with 40% accuracy given a visual aid of yes/no Pt copied 3 letter words I with 50% acc, increased to 70% acc with cues to help facilitate improved spelling for aac communication Pt sang [address] with fading cues to increase his communication independence. Subjective Dysphagia Symptoms Reported Symptoms/Problems with: Difficulty Swallowing Liquids and Hx of Aspiration Current Diet Solids Current Diet: Mechanical Soft Current Diet Liquids Current Liquids: Thin Comments Pt Report: -: Pt's reports that the pt does not use straws. Reports of difficulty with mastication of tough food and needs assistance with using compensatory strategies re; small sips & bites, slow rate. Pt's cuts up his food smaller. No specific report of coughing and choking during meal. Pt's stated that this does happen, but pt might have allergies. Pt had a previous MBSS in 2021 and has not had updated testing since then. Pt previously had a PEG tube and trach after his CVA 7 years ago, which were removed not long after the cva. Pt has had aspiration pnuemonia three times. Objective Dysphagia Swallowing Impairment Contributing Factors to Swallowing Impairment: Difficulty Following Directions Impact Impact on Safety & Functioning: Risk for Aspiration Comments: three prior cases of aspiration pneumonia. Pt requires updated instrumental testing due to concerns for aspiration and a history of dysphagia. Pt's last instrumental assessment was an MBSS in 2021. Discussed options for instrumental testing re; MBSS and FEES. Pt's requested the FEES assessment as it can be done at [facility]. Recommendations Swallowing Treatment: Yes Diet Texture Recommendations Other: Pt's currently cuts up the pt's food into small bites due to difficulty with swallowing, evidenced by coughing and choking, with large pieces of food. Pt also avoids straws due to difficulty with thin liquids via straw per caregiver report. Safety Saftey Precautions/Swallowing Recommendations (Check all that Apply): Supervision Needed All Meals, Reduce Distractions, Needs Verbal Cues to Use Recommended Strategies, Upright Position at Least 30 Minutes After Meals, Small Sips & Bites when Eating and No Straw Results Swallowing Within Normal Limits: No Swallowing Diagnosis: Dysphagia Unspecified (R13.10) Subjective AAC AAC Subjective: Pt has an aac device from [facility] for basic communication needs. Pt can use the device to pick a place to eat, ask for food at restaurants and answer yes/no questions with help from his . Further practice to effectively utilize the device is required per pt's 's report. Objective Cog/Ling/Com Test Administered Qdeznofwz-Bcfvxduofz-Xbdypwoxelnen Assessment Administered: Yes Kxwzjinmh-Afmonrywwu-Shpdbuvqxauqg Assessment: Cognitive ? Linguistic skills were evaluated using patient/family interview, skilled observation and informal evaluation through tasks completed by the patient. Orientation Orientation: Person, Birthdate and Medical Diagnosis Answer Yes/No Questions Simple: Moderate Comments Comments: Yes/No Questions (provided a yes/no visual to point to to aid verbal speech): 70% acc. Pt stated yeah but pointed to the no visual while shaking his head multiple times during the assessment. Automatic Sequences Automatic Sequences: Severe Repetition Words: Severe Naming Responsive naming: Severe Conversational Tasks Conversational Tasks: Severe Comments: Pt can stated yeah and will use that as a placeholder for all other words during conversation. Pt will use intonation appropriately. Pt attempts to answer yes/no questions verbally but will say yeah even if he means no. Pt was observed to point to no and shake his head no, while saying yeah verbally. Comments Comments: Pt was able to state his full name, 's full name and with cues. Common Object Namin/30 I, increased to 2/30 with a phonetic cues and increased to 28/30 with models and max cuing. Reading Comprehension Words: Moderate Oral Reading Words: Severe Comments: Pt was unable to read single words out loud during the evaluation. Listening comprehension, selecting single words from a choice of 4 picture: 60% acc Reading comprehension, selecting single words from a choice of 4 picture: 50% acc Reference: Neuro-QoL instrument Radiation Oncology Patient Plan Plan Plan: Will recommend Pt for weekly outpatient speech therapy intervention address severe expressive & receptive aphasia and dysphagia. Pt would benefit from verbal and visual modeling, verbal/visual and tactile cuing, repeated practice, total communication strategies, and immediate feedback to improve expressive and receptive. Without skilled intervention Pt is at risk for difficulty communicating basic, medical, emergent, social wants & needs, and interacting with family/friends at home, during social interactions. Recommendations Treatment Warranted: Yes Treatment Warranted: Receptive/ Expressive Language and Dysphagia Progress Prognosis: Good Frequency Frequency: 1-2x /Week Duration: 4-6 Months Goals that are Established Determination:: Goals will be added/modified as deemed necessary and appropriate. Therapy will be discontinued when results of re-evaluation indicate therapy is no longer needed or lack of progress has been documented. Goal #1-5 Goal #1: Pt will complete oropharyngeal exercises for 10 reps, 2x/day with min cues to improve airway protection, pharyngeal contraction, and hyolaryngeal elevation and excursion as measured by pt & caregiver compliance reports over 3 sessions. Goal #2: Pt will name common objects with up to mod cues with 70% acc to facilitate increased communication and decreased frustration on 3 measured sessions. Goal #3: Pt will answer biographical information with up to mod cues to increase safety and ability to express information in daily & medical situations over 3 measured sessions. Goal #4: Pt will select verbally presented common words from a choice of 4 with 80% acc independently over 3 measured sessions to increase his listening comprehension. Goal #5: Pt will select a picture of a common word that matches the written text from a choice of 4 with 80% acc independently over 3 measured sessions to increase his reading comprehension. Goal #6-10 Goal #6: Patient will use total communication approach (gestures/ASL/AAC/words/pictures) for a variety of pragmatic functions such as, but not limited to, to requesting actions/objects/assistance/repetition 10 times during a 60 min session across 3 measured sessions in structured/unstructured activities. Goal #7: Pt indicated on a state map the states he traveled to, using [employer] website pt indicated where he traveled in [place] Education Patient has Indicated that the Following Identified Educational Needs: Cognitively Impaired Other Educational Needs: will need visual demo due The Patient has indicated that they have no educational or learning abilities that may effect their care.: Yes Patient Instruction Patient Education: Diagnosis, Treatment Plan and Goals Person Taught: Patient and Family Teaching Method: Discussion and Demonstration Response to teaching: Reinforcement Needed
--- NOTE | 2024-04-01 14:06 | HP.OTDCSUM ---
Discharge Summary D/C Summary: It has been my pleasure to treat ROBERTA ZEE under orders from Dr. Davin Kim MD, for the diagnosis of CVA Right Hemiplegia for a total of 9 visit(s). Please see the following information for a summary of their discharge status. Overall Improvement % Improvement: 0 Goals Patient Goals: Increase ROM Goal:: pt will demo a increase in right elbow flexion to 90* to increase use of right UE with assistive ADLs by d/c Pt will demo a increase in digital AROM to initiate grasp of med. and small objects by d/c Goal:: pt and pts will demo understanding of PROM ex. to decrease risk of joint contractures by end of week 3. Pt will demo a reduction in right UE tone to MIN-MOD by d.c to decrease risk of skin break down. Pt and pts will demo understanding of using bracing to decrease tone by end of week 3. Goal:: pt and family will demo understanding of using adaptive eq. to increase pts interaction within his environment, to prevent contractures, and assist with ADLS by d.c Plan Plan: pt to be discharged at this time D/C Information Discharge Comments: pt to be discharged at this time due to plateau in progression with goals. pt looking into getting Botox to loosen up flexors of right hand and forearm. with Botox OT services would benefit pt - opening up hand, stretching out flexors and strengthening extensors. therapist ed pt and caregiver on different types of bracing to open up hand and continuing HEP and stretches. pt and caregiver demo understanding and agree to POC. Therapy session directly supervised and doc. approved by Hansa WAITE/Hailey,SOSA. d/c sentence: If there are questions or concerns regarding this patient's occupational therapy, please fell free to call me at [phone]. Thank you for the referral of this patient. Sincerely, MARIANN Macdonald/Hailey, SOSA
== END 2024-03-31 19:00 | disposition home or self-care (01) ==
LOC: OT 15:30
PROVIDERS: PCP Family Medicine; Referring Provider Orthopaedic Surgery Sports Medicine; Visit Provider Orthopaedic Surgery Sports Medicine
DX: S82.899D Other fracture of unspecified lower leg, subsequent encounter for closed fracture with routine healing (principal); I69.320 Aphasia following cerebral infarction; R47.02 Dysphasia; G81.91 Hemiplegia, unspecified affecting right dominant side; R13.10 Dysphagia, unspecified
CPT/HCPCS: 92507; 92523; 92526; 92610; 92612; 97110; 97112; 97161; 97166; 97530

== ENCOUNTER 2024-04-08 18:34 | Emergency (ER) | payer MEDICARE, MEDICAID, SELFPAY ==
[2024-04-08 18:35] VITALS: BP 146/63; PULSE 58; RESP 16; TEMP 36.2; O2SAT 92
--- NOTE | 2024-04-08 18:48 | EDS_ITS ---
HPI HPI - Fall History of Present Illness Chief Complaint: Fall PFSH PFS Medical History Ambulates with cane Anemia Anxiety Aphasia as late effect of stroke Atherosclerosis of coronary artery without angina pectoris Bimalleolar fracture of right ankle Bruising Cardiology follow-up encounter Carotid artery disease Cerebral arterial aneurysm Chronic atrial fibrillation Closed right ankle fracture Confusion CPAP (continuous positive airway pressure) dependence Debility Dysphagia Easy bruising Former smoker Gastric reflux History of atrial fibrillation History of Clostridium difficile infection History of echocardiogram History of stroke History of stroke HTN (hypertension) Hyperlipidemia Hypoxia Left acute arterial ischemic stroke, MCA (middle cerebral artery) (10/31/16) long-term current use of amiodarone Lower resp. tract infection Mixed obstructive and restrictive ventilatory defect Respiratory failure Sepsis Smoker Stroke/cerebrovascular accident Wears dentures Wears glasses Home Medications ?Medication ?Instructions ?Recorded ?Last Taken ?Type famotidine 20 mg tablet 20 mg PO QHS PRN PRN Gastric Reflux 12/21/16 08/15/22 History baclofen 10 mg tablet 5 mg (1/2 x 10 mg) PO TID 02/05/17 08/07/23 09:00 Rx multivitamin,fz-uppv-okdnixdz 1 tab PO DAILY vitamin 12/04/18 08/06/23 History (Complete Multivitamin tablet) potassium chloride 10 mEq 20 meq (2 x 10 mEq) PO TID 04/19/20 08/06/23 Rx tablet,extended release potassium #90 tabs ezetimibe 10 mg tablet 10 mg PO DAILY 04/22/21 08/06/23 History escitalopram oxalate 20 mg tablet 20 mg PO DAILY antidepressant 06/11/21 08/06/23 History menthol 0.44 %-zinc oxide 20.6 % 1 applic topical TID PRN Diaper 06/17/21 Unknown Rx topical ointment (Calmoseptine) Rash #0 grams amiodarone 100 mg tablet 100 mg PO DAILY HEART 07/11/21 08/07/23 09:00 History albuterol sulfate 90 mcg/actuation 2 inh inhalation Q4H PRN shortness 05/29/22 08/07/23 Rx aerosol inhaler (Ventolin HFA) of breath or wheezing #18 grams IV poll #1 ea 08/07/22 Unknown Rx trazodone 50 mg tablet 100 mg PO QHS DEPRESSION 08/16/22 08/06/23 History miconazole nitrate 2 % topical 1 applic topical BID 14 days #15 08/17/22 Unknown Rx cream grams amlodipine 5 mg tablet 5 mg PO BID 11/11/22 08/07/23 09:00 History apixaban 5 mg tablet (Eliquis) 5 mg PO BID 11/11/22 08/05/23 History clopidogrel 75 mg tablet (Plavix) 75 mg PO DAILY anti platelet 11/11/22 Unknown History tiotropium 2.5 mcg-olodaterol 2.5 2 puff inhalation DAILY 05/29/23 08/06/23 History mcg/actuation mist for inhalation (Stiolto Respimat) albuterol sulfate 2.5 mg/3 mL 2.5 mg continuous nebulization Q6H 08/02/23 Unknown History (0.083 %) solution for nebulization PRN shortness of breath or wheezing aspirin 81 mg capsule 81 mg PO DAILY 08/02/23 08/03/23 History atorvastatin 40 mg tablet 40 mg PO DAILY 08/02/23 08/06/23 History ferrous sulfate 325 mg (65 mg 325 mg PO DAILY 08/02/23 08/06/23 History iron) tablet (FeroSul) losartan 25 mg tablet 25 mg PO DAILY 08/02/23 08/07/23 09:00 History metoprolol tartrate 25 mg tablet 12.5 mg PO BID 08/02/23 08/07/23 09:00 History fluticasone propionate 50 2 spray intranasal DAILY #16 grams 12/02/23 Unknown Rx mcg/actuation nasal spray,suspension (Flonase Allergy Relief) buspirone 15 mg tablet 15 mg PO TID 04/08/24 Unknown History lorazepam 1 mg tablet (Ativan) 1 - 2 mg PO Q8H PRN agitation 04/08/24 Unknown History Allergy/AdvReac Type Severity Reaction Status Date / Time azithromycin (From Zithromax Allergy Intermediate Hives Verified 04/08/24 18:37 Z-Dayo) lisinopril Allergy Intermediate Hives and Verified 04/08/24 18:37 diarrhea Sulfa (Sulfonamide Allergy Hives Verified 04/08/24 18:37 Antibiotics) Family History Mother Diabetes Heart disease Father AAA (abdominal aortic aneurysm) Heart disease Surgical History History of tracheostomy (11/07/16) 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 Social History household members: spouse Smoking Status: Former smoker how long ago did patient quit smokin years ago, 2ppd second hand exposure: Yes alcohol intake: never substance use type: does not use caffeine: No EXAM Physical Exam Const Vital Signs: 04/08/24 18:35 04/08/24 18:50 04/08/24 22:34 Temperature 97.2 F L Temperature Source Temporal Pulse Rate 58 L 61 Respiratory Rate 16 12 Respiratory Effort Normal Respiratory Depth Normal Respiratory Pattern Normal Blood Pressure 146/63 H 148/72 H Blood Pressure Mean 90 97 Pulse Ox 92 96 Oxygen Delivery Method Room Air Room Air Room Air 04/08/24 22:52 Temperature 98 F Temperature Source Pulse Rate 55 L Respiratory Rate 18 Respiratory Effort Respiratory Depth Respiratory Pattern Blood Pressure 154/67 H Blood Pressure Mean 96 Pulse Ox 95 Oxygen Delivery Method MDM MDM MDM Narrative Medical decision making narrative: HISTORY OF PRESENT ILLNESS: 68-year-old male presents with fall. Per his he is fallen twice today. Notes he hit his head. Notes wound to the left forearm. Patient's gives a long convoluted story starting 7 years ago about having a massive stroke. He states over last 2 weeks has had a change in mental status. She states is u sually, but is been has been more agitated, louder. States is not his baseline. States she takes care of at home and has the assistance of home health aide. Notes hitting his head today. She denies any vomiting, bleeding diathesis, decreased appetite, decreased p.o. intake. REVIEW OF SYSTEMS: Pertinent positives: Head trauma, forearm wound, change in mental status Pertinent negatives: As per HPI PHYSICAL EXAM: Nursing triage notes reviewed, Vital signs reviewed Primary Survey Airway: Intact Breathing: Bilateral breath sounds Circulation: Palpable bilateral femorals, Palpable bilateral radial, Palpable bilateral DP and Palpable bilateral PT Disability / Spine precautions GCS Score: Eye Openin Verbal Response: 5 Motor Response: 6 Secondary Survey Constitutional: Please see MDM Head: Atraumatic, Midface stable, NO jaw malocclusion, No Cephalohematoma, and No Lacerations noted Eye: Pupils equal round and reactive to light, Extraocular muscles intact and No periorbital ecchymosis or stepoff, no evidence of entrapment ENT: Oropharynx clear, no lacerations, no hemotympanum, no raccoon eyes or bond sign Cervical spine / Neck: No cervical spine bony tenderness, crepitance, or stepoff deformity Trachea midline Lungs: Clear to auscultation, No asymmetric rise and No crepitus, no flail chest Cardiac: Regular rate and rhythm and No murmurs Abdomen: Soft, Nontender and No rebound Pelvis: Pelvis stable to compression : No evidence of genital injury Back: No midline bony tenderness to thoracic/lumbar/sacral spines Neuro: At baseline, chronic right-sided weakness in upper and lower extremities, intact sensation bilaterally, intact strength on the left upper and lower extremities. 2+ patellar reflexes bilaterally. Extremities: NO gross Deformities, chronic appearing contractures to right upper extremity noted Psych: Normal affect Nursing triage notes reviewed, Vital signs reviewed Skin: Skin tear noted to left forearm MEDICAL DECISION MAKING: Chief Complaint: Fall, head trauma External records reviewed: Reviewed prior medications. No blood thinners noted Factors affecting care: CVA, aphasia, right-sided weakness Social determinants of health: Elderly History obtained from others: The patient's Consults: none MDM Narrative: Patient was initially hemodynamically stable, afebrile and nontoxic-appearing. Primary secondary trauma surveys concerning for the following I considered the following differential diagnosis: ICH, cervical spine injury, pneumonia, UTI, anemia, electrolyte normality, ACS, LEANN, severe anemia I obtained a broad lab and imaging workup to further elucidate the etiology of the patient's complaints ALL IMAGES (IF OBTAINED) HAVE BEEN PERSONALLY REVIEWED AND INTERPRETED BY MYSELF. CT scan of the head and cervical spine showed no evidence of intracranial or cervical spine traumatic injury CBC with leukocytosis suggestive of systemic inflammation, mild anemia but no thrombocytopenia BMP without significant electrolyte normalities, no evidence of metabolic acidosis or endorgan hypoperfusion, noted mild renal insufficiency suggestive of dehydration High-sensitivity troponin is negative, no evidence of myocardial ischemia I have personally reviewed the patient's chest x-ray. Chest x-ray is unremarkable for pulmonary edema, pneumothorax, pneumonia or focal cardiopulmonary abnormality. Urinalysis shows no evidence of urinary inflammation suggestive of UTI There is no clear life-limiting etiology ascertained based on patient's ED workup including imaging and laboratory evaluation. I Suspect he is slightly dehydrated. Given patient has home health care resources no signs of any life- threatening etiologies he is appropriate discharge home. Encouraged increased PO fluids and PCP follow-up. The patient and/or family, caregivers express understanding. The patient and/or family, caregivers agrees with the plan. Shared decision making: I will have a discussion with the patient and or visitors regarding risk/benefits of further testing or admission. They will be made aware of of the risk/benefits inherent in this decision they will be given the opportunity to voice understanding. Total critical care time today provided was at least 0 minutes. This excludes separately billable procedures. Critical care time (if documented) is secondary to the patient having high probability of clinically significant/life threatening deterioration in the patient's condition which required my urgent intervention. Impression: 1. Fall 2. Head contusion 3. Change in behavior Dispo: Discharge home This note was generated with [employer] dictation software. It may contain incorrect words, spelling, and punctuation that were not noted in review of the chart prior to signing. Lab Data Labs: Laboratory Results - last 24 hr 04/08/24 04/08/24 19:22 20:45 WBC 12.3 H RBC 4.16 L Hgb 12.5 L Hct 38.4 L MCV 92.3 MCH 30.0 MCHC 32.6 RDW Std Deviation 43.9 RDW Coeff of Makayla 13.1 Plt Count 248 MPV 10.9 Sodium 141 Potassium 4.3 Chloride 110 H Carbon Dioxide 28.0 Anion Gap 3 L BUN 16 Creatinine 1.56 H Est GFR (MDRD) Af Amer 57 L Est GFR (MDRD) Non-Af 47 L BUN/Creatinine Ratio 10.3 Glucose 110 H Calcium 9.1 Troponin I High Sens 5 Urine Color Yellow Urine Clarity Clear Urine pH 7.0 Ur Specific [place] 1.010 Urine Protein Negative Urine Glucose (UA) Normal Urine Ketones Negative Urine Occult Blood Negative Urine Nitrite Negative Urine Bilirubin Negative Urine Urobilinogen Normal Ur Leukocyte Esterase 100 H Urine RBC 0 SEEN Urine WBC 5-10 SEEN Ur Squamous Epith Cells 0 SEEN Urine Bacteria 0 SEEN Urine Mucus 0 SEEN Radiography Diagnostic Testing: Clinical Impression(s) from Imaging Studies Brain CT 04/08/24 19:10 IMPRESSION: Remote infarct left ICA distribution. Otherwise no acute disease. Electronically Signed: Rony Demarco MD at 20:55 EDT , Cervical Spine CT 04/08/24 19:10 IMPRESSION: No fracture Electronically Signed: Rony Demarco MD at 21:30 EDT , Chest X-Ray 04/08/24 19:34 IMPRESSION: No acute disease Electronically Signed: Rony Demarco MD at 21:05 EDT , Discharge Plan Triage Chief Complaint: Fall ED Provider: Roosevelt Torre Dx/Rx/DC Orders Clinical Impression: CHI (closed head injury), At high risk for falls Instructions: ED Head Injury (Adult) Prescriptions: No Action Complete Multivitamin tablet 1 tab PO DAILY potassium chloride 10 mEq tablet extended release 20 meq PO TID Qty: 90 12RF albuterol sulfate [Ventolin HFA] 90 mcg/actuation HFA aerosol inhaler 2 inh inhalation Q4H PRN (Reason: shortness of breath or wheezing) Qty: 18 6RF Stiolto Respimat 2.5-2.5 mcg/actuation mist 2 puff inhalation DAILY famotidine 20 MG tablet 20 mg PO QHS PRN PRN (Reason: Gastric Reflux) Patient Comments: reduce acid baclofen 10 MG tablet 5 mg PO TID 0RF Patient Comments: muscle relaxant ezetimibe 10 mg tablet 10 mg PO DAILY Patient Comments: TAKE 1 TABLET BY MOUTH ONCE DAILY escitalopram oxalate 20 mg Tablet 20 mg PO DAILY menthol-zinc oxide [Calmoseptine] 0.44-20.6 % Ointment 1 applic topical TID PRN (Reason: Diaper Rash) Qty: 0 0RF Protocol: *Topical Application Instructions APPLICATION INSTRUCTIONS: scrotum/luci-rectal area prn amiodarone 100 mg tablet 100 mg PO DAILY Patient Comments: TAKE 1 TABLET BY MOUTH ONCE DAILY. DO NOT TAKE IF HEART RATE IS LESS THAN 40. trazodone 50 mg tablet 100 mg PO QHS Patient Comments: take 1 tablet by mouth at bedtime miconazole nitrate 2 % Cream 1 applic topical BID 14 Days Qty: 15 0RF Protocol: *Topical Application Instructions APPLICATION INSTRUCTIONS: Apply to erythema on glans of penis BID amlodipine 5 mg Tablet 5 mg PO BID Eliquis 5 mg tablet 5 mg PO BID Patient Comments: TAKE ONE (1) TABLET BY MOUTH TWICE DAILY clopidogrel [Plavix] 75 mg tablet 75 mg PO DAILY albuterol sulfate 2.5 mg /3 mL (0.083 %) solution for nebulization 2.5 mg continuous nebulization Q6H PRN (Reason: shortness of breath or wheezing) Patient Comments: INHALE 1 VIAL VIA NEBULIZER EVERY 4 HOURS NEEDED FOR WHEEZING OR SHORTNESS OF BREATH *USE OVER 5-15 MINUTES* ferrous sulfate [FeroSul] 325 mg (65 mg iron) tablet 325 mg PO DAILY Patient Comments: take 1 tablet by mouth once daily losartan 25 mg tablet 25 mg PO DAILY Patient Comments: take 1 tablet by mouth once daily aspirin 81 mg capsule 81 mg PO DAILY atorvastatin 40 mg tablet 40 mg PO DAILY Patient Comments: TAKE 1 TABLET BY MOUTH ONCE DAILY metoprolol tartrate 25 mg tablet 12.5 mg PO BID Rx Instructions: hold if heart rate is less than 60 lorazepam [Ativan] 1 mg tablet 1 - 2 mg PO Q8H PRN (Reason: agitation) buspirone 15 mg tablet 15 mg PO TID (DME) IV poll See Rx Instructions .Route .MEDSUPPLY Qty: 1 0RF Rx Instructions: As directed fluticasone propionate [Flonase Allergy Relief] 50 mcg/actuation spray,suspension 2 spray INTRANASAL DAILY Qty: 16 6RF Primary Care Provider: Conrad Arroyo Referrals: Conrad Arroyo MD [Primary Care Provider] - Activity Restrictions/Additional Instructions: Thank you for trusting us with your care today! Please take Tylenol (2 pills, 650 mg), ibuprofen (2 pills, 400 mg) every 6 hours as needed for pain and fever control. Please return to the emergency department if your symptoms change or worsen. Please follow with your primary care physician for further outpatient evaluation and management. Print Language: Nepalese Disposition Disposition: Home, Self Care
--- NOTE | 2024-04-08 19:10 | CT_ITS ---
STUDY: CT BRAIN WITHOUT CONTRAST REASON FOR EXAM: Male, 68 years old. FALL RADIATION DOSAGE (If Supplied By Facility): CTDIvol = ( 44.99 ) mGy, DLP = ( 863.60 ) mGycm TECHNIQUE: Transaxial CT imaging of the brain was performed without administration of intravenous contrast material. Individualized dose optimization techniques were used for this CT. The protocol utilizes one or more of the following dose reduction techniques: automated exposure control, adjustment of mA and/or kV according to patient size,and/or use of iterative reconstruction technique. COMPARISON: MR brain August 17, 2021) and CT July 26, 2023 FINDINGS: Normal soft tissue structures. Normal calvarium. There is moderate cerebral atrophy with widening of the extra-axial spaces and ventricular dilatation. There are areas of decreased attenuation within the white matter tracts of the supratentorial brain, consistent with microvascular disease changes. Encephalomalacia left frontal and left temporal lobes. Exvacuodilatation left lateral ventricle. Intracranial atherosclerosis. Normal basal ganglia and thalami. Normal brainstem. Normal cerebellum. There is no intracranial hemorrhage. There are no findings of an acute ischemic infarction. Normal visualized paranasal sinuses. CT/Brain/Head without Contrast IMPRESSION: Remote infarct left ICA distribution. Otherwise no acute disease. Electronically Signed: Rony Demarco MD at 20:55 EDT ,
--- NOTE | 2024-04-08 19:10 | CT_ITS ---
STUDY: CT CERVICAL SPINE WITHOUT CONTRAST REASON FOR EXAM: Male, 68 years old. FALL RADIATION DOSAGE (If Supplied By Facility): CTDIvol = ( 22.24 ) mGy, DLP = ( 456.89 ) mGycm TECHNIQUE: High resolution transaxial imaging was performed without contrast material. Sagittal and coronal images were reconstructed. Individualized dose optimization techniques were used for this CT. The protocol utilizes one or more of the following dose reduction techniques: automated exposure control, adjustment of mA and/or kV according to patient size,and/or use of iterative reconstruction technique. COMPARISON: July 26, 2023 CT cervical spine FINDINGS: Normal craniovertebral junction. Normal anterior atlantoaxial articulation. Normal odontoid process. Normal cervical lordosis. Normal vertebral bodies and posterior osseous elements. C2-3: Normal endplates. Normal disc height and morphology. Normal central canal and intervertebral neuroforamina. C3-4: Spondylitic endplates. Normal disc height and morphology. Normal central canal and narrowed intervertebral neuroforamina. C4-5: Spondylitic endplates. Normal disc height and morphology. Normal central canal and narrowed intervertebral neuroforamina. C5-6: Spondylitic endplates. Normal disc height and morphology. Normal central canal and narrowed intervertebral neuroforamina. C6-7: Spondylitic endplates. Normal disc height and morphology. Normal central canal and narrowed right intervertebral neuroforamina. C7-T1: Normal endplates. Normal disc height and morphology. Normal central canal and intervertebral neuroforamina. Normal visualized soft tissue structures. Calcified plaque in the carotids bilaterally. CT/Spine Cervical without Contras IMPRESSION: No fracture Electronically Signed: Rony Demarco MD at 21:30 EDT ,
--- NOTE | 2024-04-08 19:10 | EKG12_ITS ---
Test Reason : Blood Pressure : / mmHG Vent. Rate : 055 BPM Atrial Rate : 055 BPM P-R Int : 242 ms QRS Dur : 090 ms QT Int : 506 ms P-R-T Axes : 061 -36 050 degrees QTc Int : 484 ms Sinus bradycardia with 1st degree A-V block Left axis deviation Inferior infarct , age undetermined Abnormal ECG Confirmed by REYNA WHITMAN, MARIBEL ([id number]), newspaper managing editor KHRIS HOPKINS ([id number]) on 04/09/2024 1:53:05 PM Referred By: Confirmed By:MARIBEL ORELLANA MD
[2024-04-08] MEDS: 0.9% Normal Saline (500mL Bag) 500 ML 1000 ML IV (19:24)
[2024-04-08 19:34] LABS: Hematocrit 38.4 % (40-54); Hemoglobin 12.5 g/dL (13.0-16.5); Mean Corp Hgb Conc 32.6 g/dL (32-36); Mean Corpuscular Volume 92.3 fL (80-94); Mean Platelet Vol. 10.9 fl (6.2-12.0); Platelet Count 248 K/mm3 (150-450); RBC Distribution Width CV 13.1 % (11.6-14.6); RBC Distribution Width SD 43.9 fl (35.1-43.9); Red Blood Count 4.16 M/mm3 (4.6-6.2); White Blood Count 12.3 K/mm3 (4.4-11.0)
--- NOTE | 2024-04-08 19:34 | RAD_ITS ---
STUDY: X-RAY CHEST REASON FOR EXAM: Male, 68 years old. CHANGE IN MENTAL STATUS TECHNIQUE: Single frontal view of the chest. COMPARISON: CT chest May 22, 2023 FINDINGS: Sternotomy wires. Left perihilar surgical clips. The lungs are clear and expanded. There is no demonstrated pleural abnormality. Normal size heart. Normal mediastinum and ying. Normal visualized pulmonary arteries. Normal visualized aortic arch and descending thoracic aorta. Normal visualized thoracic spine. Normal visualized ribs, clavicles, and shoulders. There is no demonstrated abnormality of the visualized soft tissue structures of the upper abdomen. RAD/Chest 1 View (Portable) IMPRESSION: No acute disease Electronically Signed: Rony Demarco MD at 21:05 EDT ,
[2024-04-08 19:54] LABS: Anion Gap 3 (5-15); BUN 16 mg/dL (7-18); BUN/Creat Ratio 10.3 RATIO (10-20); Calcium,Total 9.1 mg/dL (8.5-10.1); Chloride 110 mmol/L (98-107); Creatinine, Serum 1.56 mg/dL (0.70-1.30); EST Glomerular Filtration Rate 47 mL/min (>60); Est Glom Filt Rate - Afr Amer 57 mL/min (>60); Glucose 110 mg/dL (74-106); Potassium 4.3 mmol/L (3.5-5.1); Sodium Level 141 mmol/L (136-145); Troponin-I HS 5 pg/mL (3.0-78.0)
[2024-04-08 20:49] LABS: Bacteria 0 SEEN /hpf (None Seen); Mucous, Urine 0 SEEN /hpf (<or=2+); Red Blood Cells-Urine 0 SEEN /hpf (0-5); Squamous Epithelial Cells - UA 0 SEEN /hpf (0-5)
[2024-04-08 21:09] LABS: Color, Urine Yellow (Yellow); Glucose, Dipstick Normal (Normal); Ketone-Dipstick Negative (Negative); Leukocyte Esterase-Dipstick 100 /ul (Negative); Nitrite-Dipstick Negative (Negative); Occult Blood-Urine Negative /ul (Negative); Protein-Dipstick Negative (Negative); Urine Bilirubin Dipstick Negative (Negative); Urine Clarity Clear (Clear); Urine Urobilinogen Normal (Normal)
[2024-04-08 21:22] LABS: White Blood Cells 5-10 SEEN /hpf (0-5)
[2024-04-08 22:34] VITALS: BP 148/72; PULSE 61; RESP 12; O2SAT 96
[2024-04-08 22:52] VITALS: BP 154/67; PULSE 55; RESP 18; TEMP 36.6; O2SAT 95
== END 2024-04-08 23:22 | disposition home or self-care (01) ==
PROVIDERS: Emergency Provider Emergency Medicine; PCP Family Medicine; Visit Provider Emergency Medicine
DX: S00.93XA Contusion of unspecified part of head, initial encounter (principal); I69.351 Hemiplegia and hemiparesis following cerebral infarction affecting right dominant side; Z91.81 History of falling; Z87.891 Personal history of nicotine dependence; E86.0 Dehydration; E78.5 Hyperlipidemia, unspecified; S51.802A Unspecified open wound of left forearm, initial encounter; I25.10 Atherosclerotic heart disease of native coronary artery without angina pectoris; I10 Essential (primary) hypertension; K21.9 Gastro-esophageal reflux disease without esophagitis; Z79.899 Other long term (current) drug therapy; I69.320 Aphasia following cerebral infarction; R41.82 Altered mental status, unspecified; W19.XXXA Unspecified fall, initial encounter
CPT/HCPCS: 70450; 71045; 72125; 80048; 81001; 84484; 85027; 93005; 96360; 96361; 99284; J7030; J7040; A4216

== ENCOUNTER → 2024-05-26 | Outpatient (CLI) | payer MEDICAID, MEDICARE, SELFPAY ==
--- NOTE | 2024-05-26 15:33 | CT_ITS ---
STUDY: LOW DOSE CT LUNG CANCER SCREENING REASON FOR EXAM: Male, 68 years old. HX OF NICOTINE DEPENDENCE RADIATION DOSAGE (If Supplied By Facility): CTDIvol = ( 2.39 ) mGy, DLP = ( 81.31 ) mGycm TECHNIQUE: No contrast was administered. Low dose technique was utilized (average mAS-38 and kVp 120). 1.25 mm axial source images with a slice interval of 1.25-mm were reconstructed in lung windows. 2.5 mm axial source images with a slice interval of 2.5-mm were reconstructed in lung windows. 5.0 mm axial source images with a slice interval of 5.0-mm were reconstructed in soft tissue windows. COMPARISON: 05/22/2023 Emphysema: Right apical scarring. Mild emphysema. No noncalcified nodule or mass. Endobronchial lesion: None Aorta: Some calcified plaque in the aortic arch but no thoracic aortic aneurysm. CORONARY ARTERIES: Coronary artery calcification is seen. Heart: No cardiomegaly. Pulmonary artery: Normal Mediastinal nodes: Normal Other chest and abdominal findings: None CT/Low Dose CT Lung Screening IMPRESSION: Lung-RADS category 1 - Continue annual screening with LDCT in 12 months. IMPORTANT NOTES FOR USE: ACR Lung-RADS Version 1.1 Assessment Categories Release Date: 2018 Category: Coded 0-4 bases on nodule(s) with highest degree of suspicion. Negative screen is defined as categories 1 and 2; a positive screen is defined as categories 3 and 4. Category 3 and 4A nodules that are unchanged on interval CT should be coded as category 2, and individuals returned to screening in 12 months. Category 4X: Category 3 or 4 nodules with additional imaging findings that increase the suspicion of lung cancer, such as spiculation, GGN that doubles in size in 1 year, enlarged lymph notes, etc. Category Modifiers: S (significant finding unrelated to lung cancer) Electronically Signed: Elias Sharma MD at 12:21 EDT ,
== END | disposition home or self-care (01) ==
PROVIDERS: PCP Family Medicine
DX: Z87.891 Personal history of nicotine dependence (principal)
CPT/HCPCS: 71271

== ENCOUNTER 2024-05-27 07:48 | Outpatient (RCR) | payer MEDICAID, MEDICARE, SELFPAY | END 2024-05-27 07:50 | disposition home or self-care (01) | LOC: PT 07:48 | PROVIDERS: PCP Family Medicine; Visit Provider Family Medicine | DX: I69.951 Hemiplegia and hemiparesis following unspecified cerebrovascular disease affecting right dominant side (principal) ==

== ENCOUNTER → 2024-06-15 | Outpatient (CLI) | payer MEDICARE, MEDICAID, SELFPAY | END | disposition home or self-care (01) | PROVIDERS: PCP Family Medicine; Referring Provider Psychiatry & Neurology Sleep Medicine; Visit Provider Psychiatry & Neurology Sleep Medicine | DX: R41.82 Altered mental status, unspecified (principal); Z86.73 Personal history of transient ischemic attack (TIA), and cerebral infarction without residual deficits | CPT/HCPCS: 95819 ==

== ENCOUNTER 2024-06-26 13:12 | Emergency (ER) | payer MEDICARE, MEDICAID, SELFPAY ==
[2024-06-26 13:15] VITALS: BP 132/60; PULSE 66; RESP 22; TEMP 36.5; O2SAT 97
[2024-06-26 13:20] VITALS: BP 132/60; PULSE 55; RESP 22; TEMP 36.5; O2SAT 99
--- NOTE | 2024-06-26 13:35 | EKG12_ITS ---
Test Reason : SOB Blood Pressure : */* mmHG Vent. Rate : 59 BPM Atrial Rate : 254 BPM P-R Int : * ms QRS Dur : 84 ms QT Int : 476 ms P-R-T Axes : 97 -42 89 degrees QTcB Int : 471 ms Atrial flutter with variable A-V block Left axis deviation Cannot rule out Inferior infarct , age undetermined Abnormal ECG Confirmed by Danial Michel ([id number]), commercial production editor KHRIS HOPKINS ([id number]) on 06/29/2024 6:21:46 AM Referred By: JOSE R Confirmed By: Danial Michel
--- NOTE | 2024-06-26 13:40 | RAD_ITS ---
EXAM: XR CHEST, 1 VIEW CLINICAL INDICATION: cough TECHNIQUE: Frontal view of the chest. COMPARISON: XR Chest dated 04/08/2024 FINDINGS: LUNGS AND PLEURAL SPACES: No consolidation or edema. No pneumothorax. No effusion. HEART: Normal heart size. Surgical changes of coronary artery bypass graft (CABG). MEDIASTINUM: No mediastinal or hilar mass. BONES/JOINTS: No acute abnormality. RAD/Chest 1 View (Portable) IMPRESSION: No acute findings in the chest. No interval change. Electronically Signed: Juan R Quinn MD at 13:59 EST ,
--- NOTE | 2024-06-26 13:41 | EDS_ITS ---
HPI <YAW Benz - Last Filed: 06/26/24 15:17> History of Present Illness Chief Complaint: Shortness of Breath Narrative Narrative: 68-year-old male with PMH of HTN, HLD, asthma, CVA with aphasia presents with several days of a productive cough. His states his cough is worse at night he has gasping for air in bed. He stands to pivot but doesn't ambulate. No fever or chills, no nausea or vomiting. He has a remote smoking history. He uses his inhaler and nebulizer twice daily. PFSH <YAW Benz - Last Filed: 06/26/24 15:17> PFSH Medical History Closed right ankle fracture Wears dentures Wears glasses History of Clostridium difficile infection Anxiety Bruising Ambulates with cane Easy bruising Gastric reflux Former smoker CPAP (continuous positive airway pressure) dependence History of echocardiogram Cardiology follow-up encounter History of atrial fibrillation Bimalleolar fracture of right ankle Hypoxia History of stroke History of stroke Stroke/cerebrovascular accident detention current use of amiodarone Chronic atrial fibrillation Atherosclerosis of coronary artery without angina pectoris Confusion Mixed obstructive and restrictive ventilatory defect Aphasia as late effect of stroke Debility Dysphagia Anemia Lower resp. tract infection Respiratory failure Hyperlipidemia HTN (hypertension) Left acute arterial ischemic stroke, MCA (middle cerebral artery) (10/31/16) Sepsis Cerebral arterial aneurysm Carotid artery disease Smoker Home Medications ?Medication ?Instructions ?Recorded ?Last Taken ?Type famotidine 20 mg tablet 20 mg PO QHS PRN PRN Gastric Reflux 12/21/16 08/15/22 History baclofen 10 mg tablet 5 mg (1/2 x 10 mg) PO TID 02/05/17 08/07/23 09:00 Rx multivitamin,[id number] 1 tab PO DAILY vitamin 12/04/18 08/06/23 History (Complete Multivitamin tablet) potassium chloride 10 mEq 20 meq (2 x 10 mEq) PO TID 04/19/20 08/06/23 Rx tablet,extended release potassium #90 tabs ezetimibe 10 mg tablet 10 mg PO DAILY 04/22/21 08/06/23 History escitalopram oxalate 20 mg tablet 20 mg PO DAILY antidepressant 06/11/21 08/06/23 History menthol 0.44 %-zinc oxide 20.6 % 1 applic topical TID PRN Diaper 06/17/21 Unknown Rx topical ointment (Calmoseptine) Rash #0 grams amiodarone 100 mg tablet 100 mg PO DAILY HEART 07/11/21 08/07/23 09:00 History albuterol sulfate 90 mcg/actuation 2 inh inhalation Q4H PRN shortness 05/29/22 08/07/23 Rx aerosol inhaler (Ventolin HFA) of breath or wheezing #18 grams IV poll #1 ea 08/07/22 Unknown Rx trazodone 50 mg tablet 100 mg PO QHS DEPRESSION 08/16/22 08/06/23 History miconazole nitrate 2 % topical 1 applic topical BID 14 days #15 08/17/22 Unknown Rx cream grams amlodipine 5 mg tablet 5 mg PO BID 11/11/22 08/07/23 09:00 History apixaban 5 mg tablet (Eliquis) 5 mg PO BID 11/11/22 08/05/23 History clopidogrel 75 mg tablet (Plavix) 75 mg PO DAILY anti platelet 11/11/22 Unknown History tiotropium 2.5 mcg-olodaterol 2.5 2 puff inhalation DAILY 05/29/23 08/06/23 History mcg/actuation mist for inhalation (Stiolto Respimat) albuterol sulfate 2.5 mg/3 mL 2.5 mg continuous nebulization Q6H 08/02/23 Unknown History (0.083 %) solution for nebulization PRN shortness of breath or wheezing aspirin 81 mg capsule 81 mg PO DAILY 08/02/23 08/03/23 History atorvastatin 40 mg tablet 40 mg PO DAILY 08/02/23 08/06/23 History ferrous sulfate 325 mg (65 mg 325 mg PO DAILY 08/02/23 08/06/23 History iron) tablet (FeroSul) losartan 25 mg tablet 25 mg PO DAILY 08/02/23 08/07/23 09:00 History metoprolol tartrate 25 mg tablet 12.5 mg PO BID 08/02/23 08/07/23 09:00 History fluticasone propionate 50 2 spray intranasal DAILY #16 grams 12/02/23 Unknown Rx mcg/actuation nasal spray,suspension (Flonase Allergy Relief) buspirone 15 mg tablet 15 mg PO TID 04/08/24 Unknown History lorazepam 1 mg tablet (Ativan) 1 - 2 mg PO Q8H PRN agitation 04/08/24 Unknown History doxycycline hyclate 100 mg capsule 100 mg PO BID 7 days #14 caps 06/26/24 Unknown Rx Allergy/AdvReac Type Severity Reaction Status Date / Time azithromycin (From Zithromax Allergy Intermediate Hives Verified 06/26/24 13:14 Z-Dayo) lisinopril Allergy Intermediate Hives and Verified 06/26/24 13:14 diarrhea Sulfa (Sulfonamide Allergy Hives Verified 06/26/24 13:14 Antibiotics) Family History Mother Diabetes Heart disease Father AAA (abdominal aortic aneurysm) Heart disease Surgical History History of tracheostomy (11/07/16) 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 Respiratory: Positive for shortness of breath, cough. GI: Negative for abdominal pain, vomiting, diarrhea. EXAM <YAW Benz - Last Filed: 06/26/24 15:17> Physical Exam Narrative Exam Narrative: CONST: Patient sitting in no acute distress. EYES: Normal inspection. NECK: Normal inspection. RESP: No respiratory distress, CTAB. CVS: Regular rate and rhythm, no murmur, no gallop. SKIN: Color normal, no rash, warm, dry, intact. EXTREMITIES: Normal appearance, no pedal edema. NEURO: Alert, chronic aphasia. PSYCH: Normal affect. Const Vital Signs: 06/26/24 13:15 06/26/24 13:20 06/26/24 13:37 Temperature 97.7 F L 97.7 F L Temperature Source Oral Oral Pulse Rate 66 55 L Respiratory Rate 22 H 22 H Respiratory Effort Normal Labored Respiratory Depth Normal Respiratory Pattern Normal Blood Pressure 132/60 H 132/60 H Blood Pressure Mean 84 84 Pulse Ox 97 99 Oxygen Delivery Method Room Air Room Air Room Air Fraction of Inspired Oxygen (FIO2) 91 06/26/24 14:12 Temperature 97.7 F L Temperature Source Pulse Rate 57 L Respiratory Rate 18 Respiratory Effort Respiratory Depth Respiratory Pattern Blood Pressure 132/60 H Blood Pressure Mean 84 Pulse Ox 95 Oxygen Delivery Method Fraction of Inspired Oxygen (FIO2) <Dr. Jasen Dhillon MD - Last Filed: 06/26/24 17:26> Physical Exam Const Vital Signs: 06/26/24 13:15 06/26/24 13:20 06/26/24 13:37 Temperature 97.7 F L 97.7 F L Temperature Source Oral Oral Pulse Rate 66 55 L Respiratory Rate 22 H 22 H Respiratory Effort Normal Labored Respiratory Depth Normal Respiratory Pattern Normal Blood Pressure 132/60 H 132/60 H Blood Pressure Mean 84 84 Pulse Ox 97 99 Oxygen Delivery Method Room Air Room Air Room Air Fraction of Inspired Oxygen (FIO2) 91 06/26/24 14:12 Temperature 97.7 F L Temperature Source Pulse Rate 57 L Respiratory Rate 18 Respiratory Effort Respiratory Depth Respiratory Pattern Blood Pressure 132/60 H Blood Pressure Mean 84 Pulse Ox 95 Oxygen Delivery Method Fraction of Inspired Oxygen (FIO2) MDM <YAW Benz - Last Filed: 06/26/24 15:17> MDM MDM Narrative Medical decision making narrative: Differential: Viral URI, pneumonia I have personally performed a face to face assessment of the patient and have reviewed the CHARLEEN Note. I performed a substantive portion of the visit including all aspects of the following. My lord findings include: History is remarkable for prior stroke and difficulty speaking. His who is POA is the informant. He was brought in for cough shortness of breath. Difficult to obtain history since he had a stroke and has difficulty speaking. He does have history of recurrent pneumonia, stroke, allergic rhinitis, carotid artery disease, cerebral arterial aneurysm, atherosclerotic heart disease, hypertension, hyperlipidemia and respiratory failure. He was brought in for respiratory symptoms. Exam is vital signs are marked for elevated blood pressure. He is tachypneic. He is not hypoxic or febrile. HEENT exam is unremarkable. Lungs reveal decreased breath sounds due to poor inspiratory volume bilaterally. Breath sounds were noted bilaterally and symmetric. Question of rales posteriorly right base. Heart is regular. Rate is normal. There is no murmur, gallop or rub. Abdomen is benign. Medical Decision Making sepsis workup was undertaken. In my opinion there is a early infiltrate right lower lobe when compared to x-ray from April of this year. In light of abnormal oscillatory findings complaint of respiratory symptoms elevated white count we will treat for pneumonia with doxycycline. Curb 65 score is 1. Therefore patient is safe for outpatient treatment. Other additions or changes: [None] I considered admission but his curb 65 score is 1, he is saturating well on room air and in no distress and is appropriate for outpatient treatment with d oxycycline. First dose given in ED. Lab Data Attestation: I reviewed the patient's lab results. Labs: Laboratory Results - last 24 hr 06/26/24 13:37 WBC 14.3 H RBC 4.45 L Hgb 13.7 Hct 41.5 MCV 93.3 MCH 30.8 MCHC 33.0 RDW Std Deviation 43.2 RDW Coeff of Makayla 12.7 Plt Count 216 MPV 10.9 Immature Gran % (Auto) 0.900 Neut % (Auto) 68.0 Lymph % (Auto) 15.2 L Granite % (Auto) 9.2 Eos % (Auto) 6.1 H Baso % (Auto) 0.6 Absolute Neuts (auto) 9.7 H Absolute Lymphs (auto) 2.17 Nucleated RBC % 0 Sodium 142 Potassium 4.3 Chloride 111 H Carbon Dioxide 29.0 Anion Gap 2 L BUN 16 Creatinine 1.23 Est GFR (MDRD) Af Amer 75 Est GFR (MDRD) Non-Af 62 BUN/Creatinine Ratio 13.0 Glucose 110 H Calcium 8.9 Radiography Diagnostic Testing: Clinical Impression(s) from Imaging Studies Chest X-Ray 06/26/24 13:40 IMPRESSION: No acute findings in the chest. No interval change. Electronically Signed: Juan R Quinn MD at 13:59 EST , ED attending interpretation of the ED chest x-ray shows right lower lobe infiltrate. <Dr. Jasen Dhillon MD - Last Filed: 06/26/24 17:26> [facility] MDM Narrative Medical decision making narrative: I have personally performed a face to face assessment of the patient and have reviewed the CHARLEEN Note. I performed a substantive portion of the visit including all aspects of the following. My lord findings include: History is remarkable for prior stroke and difficulty speaking. His who is ALEJANDROA is the informant. He was brought in for cough shortness of breath. Difficult to obtain history since he had a stroke and has difficulty speaking. He does have history of recurrent pneumonia, stroke, allergic rhinitis, carotid artery disease, cerebral arterial aneurysm, atherosclerotic heart disease, hypertension, hyperlipidemia and respiratory failure. He was brought in for respiratory symptoms. Exam is vital signs are marked for elevated blood pressure. He is tachypneic. He is not hypoxic or febrile. HEENT exam is unremarkable. Lungs reveal decreased breath sounds due to poor inspiratory volume bilaterally. Breath sounds were noted bilaterally and symmetric. Question of rales posteriorly right base. Heart is regular. Rate is normal. There is no murmur, gallop or rub. Abdomen is benign. Medical Decision Making sepsis workup was undertaken. In my opinion there is a early infiltrate right lower lobe when compared to x-ray from April of this year. In light of abnormal oscillatory findings complaint of respiratory symptoms elevated white count we will treat for pneumonia with doxycycline. Curb 65 score is 1. Therefore patient is safe for outpatient treatment. Other additions or changes: [None] Lab Data Labs: Laboratory Results - last 24 hr 06/26/24 13:37 WBC 14.3 H RBC 4.45 L Hgb 13.7 Hct 41.5 MCV 93.3 MCH 30.8 MCHC 33.0 RDW Std Deviation 43.2 RDW Coeff of Makayla 12.7 Plt Count 216 MPV 10.9 Immature Gran % (Auto) 0.900 Neut % (Auto) 68.0 Lymph % (Auto) 15.2 L Granite % (Auto) 9.2 Eos % (Auto) 6.1 H Baso % (Auto) 0.6 Absolute Neuts (auto) 9.7 H Absolute Lymphs (auto) 2.17 Nucleated RBC % 0 Sodium 142 Potassium 4.3 Chloride 111 H Carbon Dioxide 29.0 Anion Gap 2 L BUN 16 Creatinine 1.23 Est GFR (MDRD) Af Amer 75 Est GFR (MDRD) Non-Af 62 BUN/Creatinine Ratio 13.0 Glucose 110 H Calcium 8.9 Radiography Diagnostic Testing: Clinical Impression(s) from Imaging Studies Chest X-Ray 11/22/24 13:40 IMPRESSION: No acute findings in the chest. No interval change. Electronically Signed: Juan R Quinn MD at 13:59 EST , Discharge Plan Triage Chief Complaint: Shortness of Breath ED Midlevel Provider: Sona Wilburn ED Provider: Jasen Dhillon Dx/Rx/DC Orders Clinical Impression: Pneumonia Instructions: ED Pneumonia (Adult) Prescriptions: New doxycycline hyclate 100 mg capsule 100 mg PO BID 7 Days Qty: 14 0RF No Action Complete Multivitamin tablet 1 tab PO DAILY potassium chloride 10 mEq tablet extended release 20 meq PO TID Qty: 90 12RF albuterol sulfate [Ventolin HFA] 90 mcg/actuation HFA aerosol inhaler 2 inh inhalation Q4H PRN (Reason: shortness of breath or wheezing) Qty: 18 6RF Stiolto Respimat 2.5-2.5 mcg/actuation mist 2 puff inhalation DAILY famotidine 20 MG tablet 20 mg PO QHS PRN PRN (Reason: Gastric Reflux) Patient Comments: reduce acid baclofen 10 MG tablet 5 mg PO TID 0RF Patient Comments: muscle relaxant ezetimibe 10 mg tablet 10 mg PO DAILY Patient Comments: TAKE 1 TABLET BY MOUTH ONCE DAILY escitalopram oxalate 20 mg Tablet 20 mg PO DAILY menthol-zinc oxide [Calmoseptine] 0.44-20.6 % Ointment 1 applic topical TID PRN (Reason: Diaper Rash) Qty: 0 0RF Protocol: *Topical Application Instructions APPLICATION INSTRUCTIONS: scrotum/luci-rectal area prn amiodarone 100 mg tablet 100 mg PO DAILY Patient Comments: TAKE 1 TABLET BY MOUTH ONCE DAILY. DO NOT TAKE IF HEART RATE IS LESS THAN 40. trazodone 50 mg tablet 100 mg PO QHS Patient Comments: take 1 tablet by mouth at bedtime miconazole nitrate 2 % Cream 1 applic topical BID 14 Days Qty: 15 0RF Protocol: *Topical Application Instructions APPLICATION INSTRUCTIONS: Apply to erythema on glans of penis BID amlodipine 5 mg Tablet 5 mg PO BID Eliquis 5 mg tablet 5 mg PO BID Patient Comments: TAKE ONE (1) TABLET BY MOUTH TWICE DAILY clopidogrel [Plavix] 75 mg tablet 75 mg PO DAILY albuterol sulfate 2.5 mg /3 mL (0.083 %) solution for nebulization 2.5 mg continuous nebulization Q6H PRN (Reason: shortness of breath or wheezing) Patient Comments: INHALE 1 VIAL VIA NEBULIZER EVERY 4 HOURS NEEDED FOR WHEEZING OR SHORTNESS OF BREATH *USE OVER 5-15 MINUTES* ferrous sulfate [FeroSul] 325 mg (65 mg iron) tablet 325 mg PO DAILY Patient Comments: take 1 tablet by mouth once daily losartan 25 mg tablet 25 mg PO DAILY Patient Comments: take 1 tablet by mouth once daily aspirin 81 mg capsule 81 mg PO DAILY atorvastatin 40 mg tablet 40 mg PO DAILY Patient Comments: TAKE 1 TABLET BY MOUTH ONCE DAILY metoprolol tartrate 25 mg tablet 12.5 mg PO BID Rx Instructions: hold if heart rate is less than 60 lorazepam [Ativan] 1 mg tablet 1 - 2 mg PO Q8H PRN (Reason: agitation) buspirone 15 mg tablet 15 mg PO TID (DME) IV poll See Rx Instructions .Route .MEDSUPPLY Qty: 1 0RF Rx Instructions: As directed fluticasone propionate [Flonase Allergy Relief] 50 mcg/actuation spray,suspension 2 spray INTRANASAL DAILY Qty: 16 6RF Primary Care Provider: Conrad Arroyo Referrals: Conrad Arroyo MD [Primary Care Provider] - Activity Restrictions/Additional Instructions: I think there is a right-sided pneumonia on the chest x-ray and prescribed antibiotics. Continue this morning inhaler and nebulizer treatments. If symptoms worsen return to the ER. Print Language: Thai Disposition Disposition: Home, Self Care Discharge Date/Time: 06/26/24 14:20
--- NOTE | 2024-06-26 13:43 | EX.ED.DYSGE1 ---
HPI History of Present Illness Chief Complaint: Shortness of Breath PFSH PFSH Medical History Closed right ankle fracture Wears dentures Wears glasses History of Clostridium difficile infection Anxiety Bruising Ambulates with cane Easy bruising Gastric reflux Former smoker CPAP (continuous positive airway pressure) dependence History of echocardiogram Cardiology follow-up encounter History of atrial fibrillation Bimalleolar fracture of right ankle Hypoxia History of stroke History of stroke Stroke/cerebrovascular accident custodial current use of amiodarone Chronic atrial fibrillation Atherosclerosis of coronary artery without angina pectoris Confusion Mixed obstructive and restrictive ventilatory defect Aphasia as late effect of stroke Debility Dysphagia Anemia Lower resp. tract infection Respiratory failure Hyperlipidemia HTN (hypertension) Left acute arterial ischemic stroke, MCA (middle cerebral artery) (10/31/16) Sepsis Cerebral arterial aneurysm Carotid artery disease Smoker Home Medications ?Medication ?Instructions ?Recorded ?Last Taken ?Type famotidine 20 mg tablet 20 mg PO QHS PRN PRN Gastric Reflux 12/21/16 08/15/22 History baclofen 10 mg tablet 5 mg (1/2 x 10 mg) PO TID 02/05/17 08/07/23 09:00 Rx multivitamin,kb-vmby-yrpzgeti 1 tab PO DAILY vitamin 12/04/18 08/06/23 History (Complete Multivitamin tablet) potassium chloride 10 mEq 20 meq (2 x 10 mEq) PO TID 04/19/20 08/06/23 Rx tablet,extended release potassium #90 tabs ezetimibe 10 mg tablet 10 mg PO DAILY 04/22/21 08/06/23 History escitalopram oxalate 20 mg tablet 20 mg PO DAILY antidepressant 06/11/21 08/06/23 History menthol 0.44 %-zinc oxide 20.6 % 1 applic topical TID PRN Diaper 06/17/21 Unknown Rx topical ointment (Calmoseptine) Rash #0 grams amiodarone 100 mg tablet 100 mg PO DAILY HEART 07/11/21 08/07/23 09:00 History albuterol sulfate 90 mcg/actuation 2 inh inhalation Q4H PRN shortness 05/29/22 08/07/23 Rx aerosol inhaler (Ventolin HFA) of breath or wheezing #18 grams IV poll #1 ea 08/07/22 Unknown Rx trazodone 50 mg tablet 100 mg PO QHS DEPRESSION 08/16/22 08/06/23 History miconazole nitrate 2 % topical 1 applic topical BID 14 days #15 08/17/22 Unknown Rx cream grams amlodipine 5 mg tablet 5 mg PO BID 11/11/22 08/07/23 09:00 History apixaban 5 mg tablet (Eliquis) 5 mg PO BID 11/11/22 08/05/23 History clopidogrel 75 mg tablet (Plavix) 75 mg PO DAILY anti platelet 11/11/22 Unknown History tiotropium 2.5 mcg-olodaterol 2.5 2 puff inhalation DAILY 05/29/23 08/06/23 History mcg/actuation mist for inhalation (Stiolto Respimat) albuterol sulfate 2.5 mg/3 mL 2.5 mg continuous nebulization Q6H 08/02/23 Unknown History (0.083 %) solution for nebulization PRN shortness of breath or wheezing aspirin 81 mg capsule 81 mg PO DAILY 08/02/23 08/03/23 History atorvastatin 40 mg tablet 40 mg PO DAILY 08/02/23 08/06/23 History ferrous sulfate 325 mg (65 mg 325 mg PO DAILY 08/02/23 08/06/23 History iron) tablet (FeroSul) losartan 25 mg tablet 25 mg PO DAILY 08/02/23 08/07/23 09:00 History metoprolol tartrate 25 mg tablet 12.5 mg PO BID 08/02/23 08/07/23 09:00 History fluticasone propionate 50 2 spray intranasal DAILY #16 grams 12/02/23 Unknown Rx mcg/actuation nasal spray,suspension (Flonase Allergy Relief) buspirone 15 mg tablet 15 mg PO TID 04/08/24 Unknown History lorazepam 1 mg tablet (Ativan) 1 - 2 mg PO Q8H PRN agitation 04/08/24 Unknown History doxycycline hyclate 100 mg capsule 100 mg PO BID 7 days #14 caps 06/26/24 Unknown Rx Allergy/AdvReac Type Severity Reaction Status Date / Time azithromycin (From Zithromax Allergy Intermediate Hives Verified 06/26/24 13:14 Z-Dayo) lisinopril Allergy Intermediate Hives and Verified 06/26/24 13:14 diarrhea Sulfa (Sulfonamide Allergy Hives Verified 06/26/24 13:14 Antibiotics) Family History Mother Diabetes Heart disease Father AAA (abdominal aortic aneurysm) Heart disease Surgical History History of tracheostomy (11/07/16) 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 Respiratory: Positive for shortness of breath, cough. GI: Negative for abdominal pain, nausea, vomiting. EXAM Physical Exam Narrative Exam Narrative: CONST: Patient sitting in no acute distress. EYES: Normal inspection. NECK: Normal inspection. RESP: No respiratory distress, CTAB. CVS: Regular rate and rhythm, no murmur, no gallop. SKIN: Color normal, no rash, warm, dry, intact. EXTREMITIES: Normal appearance, no pedal edema. NEURO: Alert, chronic aphasia. PSYCH: Normal affect. Const Vital Signs: 06/26/24 13:15 06/26/24 13:20 06/26/24 13:37 Temperature 97.7 F L 97.7 F L Temperature Source Oral Oral Pulse Rate 66 55 L Respiratory Rate 22 H 22 H Respiratory Effort Normal Labored Respiratory Depth Normal Respiratory Pattern Normal Blood Pressure 132/60 H 132/60 H Blood Pressure Mean 84 84 Pulse Ox 97 99 Oxygen Delivery Method Room Air Room Air Room Air Fraction of Inspired Oxygen (FIO2) 91 06/26/24 14:12 Temperature 97.7 F L Temperature Source Pulse Rate 57 L Respiratory Rate 18 Respiratory Effort Respiratory Depth Respiratory Pattern Blood Pressure 132/60 H Blood Pressure Mean 84 Pulse Ox 95 Oxygen Delivery Method Fraction of Inspired Oxygen (FIO2) MDM MDM Lab Data Labs: Laboratory Results - last 24 hr 06/26/24 13:37 WBC 14.3 H RBC 4.45 L Hgb 13.7 Hct 41.5 MCV 93.3 MCH 30.8 MCHC 33.0 RDW Std Deviation 43.2 RDW Coeff of Makayla 12.7 Plt Count 216 MPV 10.9 Immature Gran % (Auto) 0.900 Neut % (Auto) 68.0 Lymph % (Auto) 15.2 L Coles % (Auto) 9.2 Eos % (Auto) 6.1 H Baso % (Auto) 0.6 Absolute Neuts (auto) 9.7 H Absolute Lymphs (auto) 2.17 Nucleated RBC % 0 Sodium 142 Potassium 4.3 Chloride 111 H Carbon Dioxide 29.0 Anion Gap 2 L BUN 16 Creatinine 1.23 Est GFR (MDRD) Af Amer 75 Est GFR (MDRD) Non-Af 62 BUN/Creatinine Ratio 13.0 Glucose 110 H Calcium 8.9 Radiography Diagnostic Testing: Clinical Impression(s) from Imaging Studies Chest X-Ray 06/26/24 13:40 IMPRESSION: No acute findings in the chest. No interval change. Electronically Signed: Juan R Quinn MD at 13:59 EST , Discharge Plan Triage Chief Complaint: Shortness of Breath ED Midlevel Provider: Sona Wilburn ED Provider: Jasen Dhillon Dx/Rx/DC Orders Clinical Impression: Pneumonia Instructions: ED Pneumonia (Adult) Prescriptions: New doxycycline hyclate 100 mg capsule 100 mg PO BID 7 Days Qty: 14 0RF No Action Complete Multivitamin tablet 1 tab PO DAILY potassium chloride 10 mEq tablet extended release 20 meq PO TID Qty: 90 12RF albuterol sulfate [Ventolin HFA] 90 mcg/actuation HFA aerosol inhaler 2 inh inhalation Q4H PRN (Reason: shortness of breath or wheezing) Qty: 18 6RF Stiolto Respimat 2.5-2.5 mcg/actuation mist 2 puff inhalation DAILY famotidine 20 MG tablet 20 mg PO QHS PRN PRN (Reason: Gastric Reflux) Patient Comments: reduce acid baclofen 10 MG tablet 5 mg PO TID 0RF Patient Comments: muscle relaxant ezetimibe 10 mg tablet 10 mg PO DAILY Patient Comments: TAKE 1 TABLET BY MOUTH ONCE DAILY escitalopram oxalate 20 mg Tablet 20 mg PO DAILY menthol-zinc oxide [Calmoseptine] 0.44-20.6 % Ointment 1 applic topical TID PRN (Reason: Diaper Rash) Qty: 0 0RF Protocol: *Topical Application Instructions APPLICATION INSTRUCTIONS: scrotum/luci-rectal area prn amiodarone 100 mg tablet 100 mg PO DAILY Patient Comments: TAKE 1 TABLET BY MOUTH ONCE DAILY. DO NOT TAKE IF HEART RATE IS LESS THAN 40. trazodone 50 mg tablet 100 mg PO QHS Patient Comments: take 1 tablet by mouth at bedtime miconazole nitrate 2 % Cream 1 applic topical BID 14 Days Qty: 15 0RF Protocol: *Topical Application Instructions APPLICATION INSTRUCTIONS: Apply to erythema on glans of penis BID amlodipine 5 mg Tablet 5 mg PO BID Eliquis 5 mg tablet 5 mg PO BID Patient Comments: TAKE ONE (1) TABLET BY MOUTH TWICE DAILY clopidogrel [Plavix] 75 mg tablet 75 mg PO DAILY albuterol sulfate 2.5 mg /3 mL (0.083 %) solution for nebulization 2.5 mg continuous nebulization Q6H PRN (Reason: shortness of breath or wheezing) Patient Comments: INHALE 1 VIAL VIA NEBULIZER EVERY 4 HOURS NEEDED FOR WHEEZING OR SHORTNESS OF BREATH *USE OVER 5-15 MINUTES* ferrous sulfate [FeroSul] 325 mg (65 mg iron) tablet 325 mg PO DAILY Patient Comments: take 1 tablet by mouth once daily losartan 25 mg tablet 25 mg PO DAILY Patient Comments: take 1 tablet by mouth once daily aspirin 81 mg capsule 81 mg PO DAILY atorvastatin 40 mg tablet 40 mg PO DAILY Patient Comments: TAKE 1 TABLET BY MOUTH ONCE DAILY metoprolol tartrate 25 mg tablet 12.5 mg PO BID Rx Instructions: hold if heart rate is less than 60 lorazepam [Ativan] 1 mg tablet 1 - 2 mg PO Q8H PRN (Reason: agitation) buspirone 15 mg tablet 15 mg PO TID (DME) IV poll See Rx Instructions .Route .MEDSUPPLY Qty: 1 0RF Rx Instructions: As directed fluticasone propionate [Flonase Allergy Relief] 50 mcg/actuation spray,suspension 2 spray INTRANASAL DAILY Qty: 16 6RF Primary Care Provider: Conrad Arroyo Referrals: Conrad Arroyo MD [Primary Care Provider] - Activity Restrictions/Additional Instructions: I think there is a right-sided pneumonia on the chest x-ray and prescribed antibiotics. Continue this morning inhaler and nebulizer treatments. If symptoms worsen return to the ER. Print Language: Maltese Disposition Disposition: Home, Self Care
[2024-06-26 13:45] LABS: Absolute Lymphocyte Count 2.17 X10^3/uL (0.83-4.51); Absolute Neutrophil Count 9.7 X10^3/uL (2.0-7.7); Basophil# 0.09 X10^3/uL; Basophil% 0.6 % (0-1); Eosinophil# 0.87 X10^3/uL; Eosinophils% 6.1 % (0-5); Hematocrit 41.5 % (40-54); Hemoglobin 13.7 g/dL (13.0-16.5); Lymphocyte # 2.17 X10^3/ul (0.83-4.51); Lymphocyte % 15.2 % (19-41); Mean Corpuscular Hgb 30.8 pg (27.0-32.0); Mean Corpuscular Volume 93.3 fL (80-94); Mean Platelet Vol. 10.9 fl (6.2-12.0); Monocyte# 1.32 X10^3/uL; Monocyte% 9.2 % (0-10); NRBC Flagged by Analyzer 0 % (0-5); Neutrophil # 9.71 X10^3/uL (2.7-7.7); Platelet Count 216 K/mm3 (150-450); RBC Distribution Width CV 12.7 % (11.6-14.6); RBC Distribution Width SD 43.2 fl (35.1-43.9); Red Blood Count 4.45 M/mm3 (4.6-6.2); White Blood Count 14.3 K/mm3 (4.4-11.0)
[2024-06-26 13:59] LABS: Anion Gap 2 (5-15); BUN 16 mg/dL (7-18); Calcium,Total 8.9 mg/dL (8.5-10.1); Chloride 111 mmol/L (98-107); Creatinine, Serum 1.23 mg/dL (0.70-1.30); EST Glomerular Filtration Rate 62 mL/min (>60); Est Glom Filt Rate - Afr Amer 75 mL/min (>60); Glucose 110 mg/dL (74-106); Potassium 4.3 mmol/L (3.5-5.1); Sodium Level 142 mmol/L (136-145)
[2024-06-26 14:12] VITALS: BP 132/60; PULSE 57; RESP 18; TEMP 36.5; O2SAT 95
[2024-06-26] MEDS: Doxycycline 100 MG CAPSULE PO (14:15)
--- NOTE | 2024-06-27 11:49 | ED.RN ---
PTS MEDICATION FOUND IN ED ROOM. THIS RN CALLED PT. HIS JONAH HERNANDEZ ANSWERED. SHE STATES SHE WILL BE IN SATURDAY WHEN SHE HAS AN AIDE AT THE HOME TO WATCH HER . SHE WAS INFORMED TO COME TO THE ED FOR PICKUP
[2024-06-29 16:10] LABS: Bedside Glucose 133 mg/dL (74-106)
== END 2024-06-26 14:20 | disposition home or self-care (01) ==
PROVIDERS: Physician Assistant; Emergency Provider Emergency Medicine; PCP Family Medicine; Visit Provider Emergency Medicine
DX: J18.9 Pneumonia, unspecified organism (principal); I25.10 Atherosclerotic heart disease of native coronary artery without angina pectoris; E78.5 Hyperlipidemia, unspecified; Z87.891 Personal history of nicotine dependence; I10 Essential (primary) hypertension; J45.909 Unspecified asthma, uncomplicated; I69.320 Aphasia following cerebral infarction; Z79.51 Long term (current) use of inhaled steroids; K21.9 Gastro-esophageal reflux disease without esophagitis
CPT/HCPCS: 71045; 80048; 82962; 85025; 93005; 99283; A4216

== ENCOUNTER 2024-06-27 21:28 | Observation (INO) | payer MEDICARE, MEDICAID, SELFPAY ==
--- NOTE | 2024-06-27 21:30 | ED.RN ---
this rn talks with Dr. Lin in regards to pt's neurological sx of [place], confusion, dizziness, weakness with hx of aneurysm and questions if this rn should call a stroke alert. per Dr. Lin, hold off on calling the stroke alert at this time.
[2024-06-27 21:32] VITALS: BP 144/66; PULSE 54; RESP 16; TEMP 36.6; O2SAT 86
--- NOTE | 2024-06-27 21:53 | CT_ITS ---
STUDY: CT BRAIN WITHOUT CONTRAST REASON FOR EXAM: Male, 68 years old. confusion RADIATION DOSAGE (If Supplied By Facility): CTDIvol = ( 44.99 ) mGy, DLP = ( 796.11 ) mGycm TECHNIQUE: Transaxial CT imaging of the brain was performed without administration of intravenous contrast material. Individualized dose optimization techniques were used for this CT. COMPARISON: No relevant priors. FINDINGS: Normal soft tissue structures. Normal calvarium. Prominent ventricles and extra-axial spaces with atrophy. Left cerebral encephalomalacia. Mild white matter microangiopathic ischemic changes of the cerebral hemispheres. Old infarct in the left basal ganglia. Normal thalami. Normal brainstem. Normal cerebellum. There is no intracranial hemorrhage. There are no findings of an acute ischemic infarction. Normal visualized paranasal sinuses. CT/Brain/Head without Contrast IMPRESSION: Chronic changes of the brain. No acute intracranial pathology. Electronically Signed: Jonel Soto DO at 22:47 EST ,
--- NOTE | 2024-06-27 21:53 | EKG12_ITS ---
Test Reason : CONFUSION Blood Pressure : */* mmHG Vent. Rate : 48 BPM Atrial Rate : 48 BPM P-R Int : 226 ms QRS Dur : 92 ms QT Int : 414 ms P-R-T Axes : -4 -38 90 degrees QTcB Int : 369 ms Sinus bradycardia with 1st degree A-V block Left axis deviation Cannot rule out Inferior infarct , age undetermined Abnormal ECG Confirmed by Danial Michel ([id number]), editor managing director KHRIS HOPKINS ([id number]) on 06/30/2024 10:26:37 AM Referred By: Confirmed By: Danial Michel
[2024-06-27 21:55] VITALS: O2SAT 96
--- NOTE | 2024-06-27 21:57 | EX.ED.DYSGE1 ---
HPI History of Present Illness Chief Complaint: Neuro S/Sx Informant: spouse/S.O. Narrative Narrative: Referred in here by patient's PCP after spouse called. Patient history of CVA 2017 from ruptured aneurysm with stenting. Residual right-sided deficits with facial droop right arm paralysis. He does have some function of his leg since his stroke. He stands and pivots. He was seen yesterday due to a cough for few days diagnosed with pneumonia and is on antibiotics. He wears oxygen of 6 L at night. Spouse states yesterday evening patient went to the restroom almost fell had a period of confusion for few minutes did not recognize her. There was recurrent episodes today. Further discussion spouse states saw a new neurologist recently Dr. Bennett. He had an EEG performed at this facility had concerning findings started on Keppra 500 mg twice a day over last 3 days. No clinical seizure symptoms stimulated the workup. Per spouse neurologist wanted it checked. Patient today had multiple confusion episodes did not know where to put his oxygen. Spouse states was told by PCP that Keppra can lead to strokes. Prior similar symptoms: No PFSH PFSH Medical History Closed right ankle fracture Wears dentures Wears glasses History of Clostridium difficile infection Anxiety Bruising Ambulates with cane Easy bruising Gastric reflux Former smoker CPAP (continuous positive airway pressure) dependence History of echocardiogram Cardiology follow-up encounter History of atrial fibrillation Bimalleolar fracture of right ankle Hypoxia History of stroke History of stroke Stroke/cerebrovascular accident [facility] current use of amiodarone Chronic atrial fibrillation Atherosclerosis of coronary artery without angina pectoris Confusion Mixed obstructive and restrictive ventilatory defect Aphasia as late effect of stroke Debility Dysphagia Anemia Lower resp. tract infection Respiratory failure Hyperlipidemia HTN (hypertension) Left acute arterial ischemic stroke, MCA (middle cerebral artery) (10/31/16) Sepsis Cerebral arterial aneurysm Carotid artery disease Smoker Home Medications ?Medication ?Instructions ?Recorded ?Last Taken ?Type famotidine 20 mg tablet 20 mg PO QHS PRN PRN Gastric Reflux 12/21/16 08/15/22 History baclofen 10 mg tablet 5 mg (1/2 x 10 mg) PO TID 02/05/17 08/07/23 09:00 Rx multivitamin,[id number]-ckay-mbdutofo 1 tab PO DAILY vitamin 12/04/18 08/06/23 History (Complete Multivitamin tablet) potassium chloride 10 mEq 20 meq (2 x 10 mEq) PO TID 04/19/20 08/06/23 Rx tablet,extended release potassium #90 tabs ezetimibe 10 mg tablet 10 mg PO DAILY 04/22/21 08/06/23 History escitalopram oxalate 20 mg tablet 20 mg PO DAILY antidepressant 06/11/21 08/06/23 History menthol 0.44 %-zinc oxide 20.6 % 1 applic topical TID PRN Diaper 06/17/21 Unknown Rx topical ointment (Calmoseptine) Rash #0 grams amiodarone 100 mg tablet 100 mg PO DAILY HEART 07/11/21 08/07/23 09:00 History albuterol sulfate 90 mcg/actuation 2 inh inhalation Q4H PRN shortness 05/29/22 08/07/23 Rx aerosol inhaler (Ventolin HFA) of breath or wheezing #18 grams IV poll #1 ea 08/07/22 Unknown Rx trazodone 50 mg tablet 100 mg PO QHS DEPRESSION 08/16/22 08/06/23 History miconazole nitrate 2 % topical 1 applic topical BID 14 days #15 08/17/22 Unknown Rx cream grams amlodipine 5 mg tablet 5 mg PO BID 11/11/22 08/07/23 09:00 History apixaban 5 mg tablet (Eliquis) 5 mg PO BID 11/11/22 08/05/23 History tiotropium 2.5 mcg-olodaterol 2.5 2 puff inhalation DAILY 05/29/23 08/06/23 History mcg/actuation mist for inhalation (Stiolto Respimat) albuterol sulfate 2.5 mg/3 mL 2.5 mg continuous nebulization Q6H 08/02/23 Unknown History (0.083 %) solution for nebulization PRN shortness of breath or wheezing atorvastatin 40 mg tablet 40 mg PO DAILY 08/02/23 08/06/23 History ferrous sulfate 325 mg (65 mg 325 mg PO BID 08/02/23 08/06/23 History iron) tablet (FeroSul) losartan 25 mg tablet 25 mg PO DAILY 08/02/23 08/07/23 09:00 History metoprolol tartrate 25 mg tablet 12.5 mg PO BID 08/02/23 08/07/23 09:00 History fluticasone propionate 50 2 spray intranasal DAILY #16 grams 12/02/23 Unknown Rx mcg/actuation nasal spray,suspension (Flonase Allergy Relief) buspirone 15 mg tablet 15 mg PO TID 04/08/24 Unknown History lorazepam 1 mg tablet (Ativan) 1 - 2 mg PO Q8H PRN agitation 04/08/24 Unknown History doxycycline hyclate 100 mg capsule 100 mg PO BID 7 days #14 caps 06/26/24 Unknown Rx hydrocodone-acetaminophen 5-325mg 1 - 2 tab PO Q6H PRN PRN pain 06/27/24 Unknown History 5mg-325mg Allergy/AdvReac Type Severity Reaction Status Date / Time azithromycin (From Zithromax Allergy Intermediate Hives Verified 06/27/24 21:32 Z-Dayo) lisinopril Allergy Intermediate Hives and Verified 06/27/24 21:32 diarrhea Sulfa (Sulfonamide Allergy Hives Verified 06/27/24 21:32 Antibiotics) Family History Mother Diabetes Heart disease Father AAA (abdominal aortic aneurysm) Heart disease Surgical History History of tracheostomy (11/07/16) 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 Social History household members: spouse Smoking Status: Former smoker how long ago did patient quit smokin years ago, 2ppd second hand exposure: Yes alcohol intake: never substance use type: does not use caffeine: No ROS ROS ED Review of Systems ROS Unobtainable: other Details: Baseline aphasia EXAM Physical Exam Const Vital Signs: 06/27/24 21:32 06/27/24 21:55 06/27/24 22:31 Temperature 97.9 F Temperature Source Temporal Pulse Rate 54 L 49 L Respiratory Rate 16 15 Blood Pressure 144/66 H 142/60 H Blood Pressure Mean 92 87 Pulse Ox 86 96 98 Oxygen Delivery Method Room Air Nasal Cannula Nasal Cannula Oxygen Flow Rate (L/min) 4 4 06/27/24 23:00 06/27/24 23:49 Temperature 98.4 F Temperature Source Pulse Rate 47 L 47 L Respiratory Rate 14 17 Blood Pressure 149/59 H 136/61 H Blood Pressure Mean 89 86 Pulse Ox 97 95 Oxygen Delivery Method Nasal Cannula Oxygen Flow Rate (L/min) 3 Positive well nourished and well developed Constitutional Narrative: 4 L nasal cannula, nontoxic General Appearance ED: well developed and NAD HEENT Reports moist mucous membranes normocephalic and atraumatic Eyes EOMs intact bilaterally and conjunctivae normal Neck no lymphadenopathy and supple General: Negative for tenderness Chest Wall Chest: Negative for tenderness Resp normal respiratory effort and normal air movement Effort and Inspection: symmetric chest movement; Negative for respiratory distress Cardio regular rate, regular rhythm and no murmurs Peripheral Pulses: pulses 2+ throughout GI normal to inspection, nondistended, normoactive bowel sounds and non-tender Palpation: Negative for guarding or rebound tenderness present Back/Spine no CVA tenderness and no thoracic nor lumbar tenderness Extremity Extremity Narrative: No movement in the right upper extremity. there is movement of the right lower extremity with posterior splint. General Extremety ED: Negative for edema or tenderness General Extremity: Negative for edema Neuro Neuro Narrative: Baseline per spouse. Sensorium / Orientation: awake and alert Skin no rashes or lesions noted and no wounds MDM MDM MDM Narrative Medical decision making narrative: Interventions / MDM: Differential diagnosis: Seizure, pneumonia and hypoxia, medication side effect Diagnosis considered but do not suspect: N/A My EKG interpretation: Sinus rate of 48 first-degree AV block, no ST or T wave changes Imaging independently reviewed and interpreted by myself: 1 view chest x-ray: Right lower lobe infiltrate. External documents reviewed: N/A Test considered but not ordered:N/A ED course: Patient hypoxic at 86% on arrival he wears oxygen just at night. Placed on 4 L oxygen. Currently baseline neurological status per spouse. Diagnosed pneumonia yesterday. Had periods of confusion. Differential of concern hypoxia causing confusion with his pneumonia. Recent seizure diagnosis possible seizure episodes, also Keppra can also lead to confusion and amnesia. Lower concerns for stroke symptoms. Will check CT brain recheck chest x-ray labs and urine. 2328: Labs improving white count 9.2 down from 14. Sodium 144. Creatinine 1.19. Urine had 500 leukocytes no other findings. Urine culture sent. Chest x-ray 1 view concerning more prominent infiltrate right lower lobe compared to yesterday. He is requiring continuous oxygen at this time. He is in no respiratory distress. Multifactorial causes for his confusion. He status post 3 doses of doxycycline last dose this evening. Allergy to Zithromax. Will add Rocephin IV. Will discuss with hospitalist for admission. Discussed with Dr. Eckert for admission. Re-evaluation: stable Disposition discussed with patient/family/significant other: Spouse Case discussed with consulting clinician: Hospitalist This note was generated with [employer] dictation software. It may contain incorrect words, spelling, and punctuation that were not noted in checking the note before signing. Lab Data Attestation: I reviewed the patient's lab results. Labs: Laboratory Results - last 24 hr 06/27/24 06/27/24 21:50 22:27 WBC 9.2 RBC 4.38 L Hgb 13.5 Hct 40.6 MCV 92.7 MCH 30.8 MCHC 33.3 RDW Std Deviation 42.7 RDW Coeff of Makayla 12.5 Plt Count 218 MPV 11.2 Immature Gran % (Auto) 1.200 H Neut % (Auto) 58.3 Lymph % (Auto) 22.4 Garza % (Auto) 10.1 H Eos % (Auto) 7.0 H Baso % (Auto) 1.0 Absolute Neuts (auto) 5.4 Absolute Lymphs (auto) 2.05 Nucleated RBC % 0 PT 14.0 INR 1.1 APTT 29.0 Sodium 144 Potassium 4.0 Chloride 112 H Carbon Dioxide 28.0 Anion Gap 4 L BUN 17 Creatinine 1.19 Estim Creat Clear Calc 67.19 Est GFR (MDRD) Af Amer 78 Est GFR (MDRD) Non-Af 64 BUN/Creatinine Ratio 14.3 Glucose 127 H Calcium 8.9 Urine Color Yellow Urine Clarity Clear Urine pH 6.0 Ur Specific [place] 1.020 Urine Protein 30 H Urine Glucose (UA) Normal Urine Ketones Negative Urine Occult Blood Negative Urine Nitrite Negative Urine Bilirubin Negative Urine Urobilinogen Normal Ur Leukocyte Esterase 500 H Urine RBC 0 SEEN Urine WBC 0-5 SEEN Ur Squamous Epith Cells 0 SEEN Urine Bacteria 0 SEEN Urine Mucus 0 SEEN Urine Yeast RARE Radiography Diagnostic Testing: Clinical Impression(s) from Imaging Studies Brain CT 06/27/24 21:53 IMPRESSION: Chronic changes of the brain. No acute intracranial pathology. Electronically Signed: Jonel Soto DO at 22:47 EST Reading Location ID and State: [facility] / [place] Tel [phone], Service support , Chest X-Ray 06/27/24 22:04 IMPRESSION: Central pulmonary vascular prominence. Prominent right basilar interstitial markings and mild infiltrate. Electronically Signed: Jonel Soto DO at 23:53 EST Reading Location ID and State: [facility] / [place] Tel [phone], Service support , Discharge Plan Dx/Rx/DC Orders Clinical Impression: Pneumonia, Aphasia, Hypoxia, Confusion, History of seizures Disposition Disposition: Acute Care Hospital [facility]
[2024-06-27 21:58] VITALS: BMI 28.5
[2024-06-27 21:59] VITALS: BMI 28.5
--- NOTE | 2024-06-27 22:04 | RAD_ITS ---
INDICATION: cough EXAMINATION/TECHNIQUE: X-RAY - XR Chest 1 View COMPARISON: June 26, 2024 FINDINGS: LINES/DEVICES: Stable sternotomy wires. LUNGS: Prominent right basilar interstitial markings and mild infiltrate. No pneumothorax. MEDIASTINUM AND CARDIOVASCULAR STRUCTURES: Cardiac silhouette not enlarged. There is central pulmonary vascular prominence. Central airways and mediastinal contour are unremarkable. BONES AND SOFT TISSUES: Degenerative vertebral changes. RAD/Chest 1 View (Portable) IMPRESSION: Central pulmonary vascular prominence. Prominent right basilar interstitial markings and mild infiltrate. Electronically Signed: Jonel Soto DO at 23:53 EST Reading Location ID and State: [facility] / [place] Tel [phone], Service support ,
[2024-06-27 22:10] LABS: Absolute Lymphocyte Count 2.05 X10^3/uL (0.83-4.51); Absolute Neutrophil Count 5.4 X10^3/uL (2.0-7.7); Basophil# 0.09 X10^3/uL; Eosinophil# 0.64 X10^3/uL; Hematocrit 40.6 % (40-54); Hemoglobin 13.5 g/dL (13.0-16.5); Lymphocyte # 2.05 X10^3/ul (0.83-4.51); Lymphocyte % 22.4 % (19-41); Mean Corp Hgb Conc 33.3 g/dL (32-36); Mean Corpuscular Hgb 30.8 pg (27.0-32.0); Mean Corpuscular Volume 92.7 fL (80-94); Mean Platelet Vol. 11.2 fl (6.2-12.0); Monocyte# 0.93 X10^3/uL; Monocyte% 10.1 % (0-10); NRBC Flagged by Analyzer 0 % (0-5); Neutrophil # 5.35 X10^3/uL (2.7-7.7); Neutrophil % 58.3 % (47-70); Platelet Count 218 K/mm3 (150-450); RBC Distribution Width CV 12.5 % (11.6-14.6); RBC Distribution Width SD 42.7 fl (35.1-43.9); Red Blood Count 4.38 M/mm3 (4.6-6.2); White Blood Count 9.2 K/mm3 (4.4-11.0)
[2024-06-27 22:20] LABS: Anion Gap 4 (5-15); BUN 17 mg/dL (7-18); BUN/Creat Ratio 14.3 RATIO (10-20); Calcium,Total 8.9 mg/dL (8.5-10.1); Chloride 112 mmol/L (98-107); Creatinine, Serum 1.19 mg/dL (0.70-1.30); EST Glomerular Filtration Rate 64 mL/min (>60); Est Glom Filt Rate - Afr Amer 78 mL/min (>60); Estimated Creatinine Clearance 67.19 ml/min; Glucose 127 mg/dL (74-106); Sodium Level 144 mmol/L (136-145)
[2024-06-27 22:26] LABS: International Normalized Ratio 1.1
[2024-06-27 22:31] VITALS: BP 142/60; PULSE 49; RESP 15; O2SAT 98
[2024-06-27 22:32] LABS: Bacteria 0 SEEN /hpf (None Seen); Mucous, Urine 0 SEEN /hpf (<or=2+); Red Blood Cells-Urine 0 SEEN /hpf (0-5); Squamous Epithelial Cells - UA 0 SEEN /hpf (0-5)
[2024-06-27 22:35] LABS: Color, Urine Yellow (Yellow); Glucose, Dipstick Normal (Normal); Ketone-Dipstick Negative (Negative); Leukocyte Esterase-Dipstick 500 /ul (Negative); Nitrite-Dipstick Negative (Negative); Occult Blood-Urine Negative /ul (Negative); Protein-Dipstick 30 mg/dl (Negative); Urine Bilirubin Dipstick Negative (Negative); Urine Clarity Clear (Clear); Urine Urobilinogen Normal (Normal)
[2024-06-27 22:59] LABS: White Blood Cells 0-5 SEEN /hpf (0-5)
[2024-06-27 23:00] VITALS: BP 149/59; PULSE 47; RESP 14; O2SAT 97
[2024-06-27 23:01] LABS: Yeast-Urine RARE /hpf (None Seen)
[2024-06-27] MEDS: Ceftriaxone 1 GM/50 ML BAG IV (23:40)
[2024-06-27 23:49] VITALS: BP 136/61; PULSE 47; RESP 17; TEMP 36.9; O2SAT 95
--- NOTE | 2024-06-27 23:51 | PCM.HP.STD ---
[facility] - General General Date of Admission: 06/28/24 Date of Service: 06/27/24 Chief Complaint: Intermittent Confusion after recently being started on Keppra for + EEG. HPI Narrative ROBERTA ZEE, is a 68 M with a past medical history of essential hypertension; on amlodipine, losartan and metoprolol, hyperlipidemia; on atorvastatin and ezetimibe, overweight; with BMI of 28.6 this admission, DARON; noncompliant with CPAP, history of tobacco abuse (quit ~2015 and ~2020), chronic atrial fibrillation; on amiodarone and apixaban, CAD; s/p CABG x 5 (2016), history of ischemic Left MCA CVA as a post-CABG complication (2017); with subsequent aphasia, previous g-tube placement plus tracheostomy (both long removed) with suspected oropharyngeal dysphagia causing suspected silent aspiration with recurrent episodes of pneumonia and chronic debility with Right facial droop and RUE paresis with patient able to ambulate with cane, history of cerebral artery aneurysm, history of carotid artery disease, history of stenosis of the Left subclavian artery, history of mass of RUL, history of sepsis, history of pneumonia, history of PTX, history of bimalleolar fracture of the Right ankle, listed allergy to azithromycin (hives), listed allergy to sulfonamide antibiotics (hives), listed allergy to lisinopril (hives & diarrhea), history of depression with anxiety; on trazodone, buspirone, escitalopram and prn lorazepam q. 8 hours, JENN, history of GERD; on pepcid, OA; on hydrocodone-APAP q. 6 hours prn, recently diagnosed RLL Pneumonia with Leukocytosis of 14.3K and Hypoxia in ER here June 26, 2024 treated with oral Doxycycline and currently on 6L NC at night in addition to recently diagnosed Epilepsy with Absence Seizures followed by protracted postictal periods after positive EEG that revealed epileptiform discharges with patient subsequently started on Keppra 500 mg PO BID by his new neurologist, Dr. Bennett, who presents to [facility] ER with his complaining of he has been intermittently confused since starting this new AED. Mr. Zee is not a reliable historian due to his aphasia so information was gathered from chart, medical staff, computer and his devoted who was present at the bedside. According to the records he was noted to become confused since starting Keppra three days ago and she is in strongly favor of stopping this agent and switching to an alternative after one of the patient's doctors allegedly informed her Keppra can cause strokes. She explained further that earlier today he almost fell in the bathroom followed by him not being able to recognize her for a few minutes which she states has been worse and not better since starting Keppra. Then there were additional similar episodes throughout the day with patient staring off into space and not responding to her - but she denies any overt tonic-clonic seizure activity. She also denies associated fever, chills, nausea, vomiting, diarrhea, constipation, SOB, recent trauma or other significant new issues other than the ones described above. 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 [facility] History Closed right ankle fracture Wears dentures Wears glasses History of Clostridium difficile infection Anxiety Bruising Ambulates with cane Easy bruising Gastric reflux Former smoker CPAP (continuous positive airway pressure) dependence History of echocardiogram Cardiology follow-up encounter History of atrial fibrillation Bimalleolar fracture of right ankle Hypoxia History of stroke History of stroke Stroke/cerebrovascular accident residential current use of amiodarone Chronic atrial fibrillation Atherosclerosis of coronary artery without angina pectoris Confusion Mixed obstructive and restrictive ventilatory defect Aphasia as late effect of stroke Debility Dysphagia Anemia Lower resp. tract infection Respiratory failure Hyperlipidemia HTN (hypertension) Left acute arterial ischemic stroke, MCA (middle cerebral artery) (10/31/16) Sepsis Cerebral arterial aneurysm Carotid artery disease Smoker Home Medications ?Medication ?Instructions ?Recorded ?Last Taken ?Type famotidine 20 mg tablet 20 mg PO QHS PRN PRN Gastric Reflux 12/21/16 08/15/22 History baclofen 10 mg tablet 5 mg (1/2 x 10 mg) PO TID 02/05/17 08/07/23 09:00 Rx multivitamin,cj-yoim-dvmdpxgi 1 tab PO DAILY vitamin 12/04/18 08/06/23 History (Complete Multivitamin tablet) potassium chloride 10 mEq 20 meq (2 x 10 mEq) PO TID 04/19/20 08/06/23 Rx tablet,extended release potassium #90 tabs ezetimibe 10 mg tablet 10 mg PO DAILY 04/22/21 08/06/23 History escitalopram oxalate 20 mg tablet 20 mg PO DAILY antidepressant 06/11/21 08/06/23 History menthol 0.44 %-zinc oxide 20.6 % 1 applic topical TID PRN Diaper 06/17/21 Unknown Rx topical ointment (Calmoseptine) Rash #0 grams amiodarone 100 mg tablet 100 mg PO DAILY HEART 07/11/21 08/07/23 09:00 History albuterol sulfate 90 mcg/actuation 2 inh inhalation Q4H PRN shortness 05/29/22 08/07/23 Rx aerosol inhaler (Ventolin HFA) of breath or wheezing #18 grams trazodone 50 mg tablet 100 mg PO QHS DEPRESSION 08/16/22 08/06/23 History miconazole nitrate 2 % topical 1 applic topical BID 14 days #15 08/17/22 Unknown Rx cream grams amlodipine 5 mg tablet 5 mg PO BID 11/11/22 08/07/23 09:00 History apixaban 5 mg tablet (Eliquis) 5 mg PO BID 11/11/22 08/05/23 History tiotropium 2.5 mcg-olodaterol 2.5 2 puff inhalation DAILY 05/29/23 08/06/23 History mcg/actuation mist for inhalation (Stiolto Respimat) albuterol sulfate 2.5 mg/3 mL 2.5 mg continuous nebulization Q6H 08/02/23 Unknown History (0.083 %) solution for nebulization PRN shortness of breath or wheezing atorvastatin 40 mg tablet 40 mg PO DAILY 08/02/23 08/06/23 History ferrous sulfate 325 mg (65 mg 325 mg PO BID 08/02/23 08/06/23 History iron) tablet (FeroSul) losartan 25 mg tablet 25 mg PO DAILY 08/02/23 08/07/23 09:00 History metoprolol tartrate 25 mg tablet 12.5 mg PO BID 08/02/23 08/07/23 09:00 History fluticasone propionate 50 2 spray intranasal DAILY #16 grams 12/02/23 Unknown Rx mcg/actuation nasal spray,suspension (Flonase Allergy Relief) buspirone 15 mg tablet 15 mg PO TID 04/08/24 Unknown History lorazepam 1 mg tablet (Ativan) 1 - 2 mg PO Q8H PRN agitation 04/08/24 Unknown History doxycycline hyclate 100 mg capsule 100 mg PO BID 7 days #14 caps 06/26/24 Unknown Rx hydrocodone-acetaminophen 5-325mg 1 - 2 tab PO Q6H PRN PRN pain 06/27/24 Unknown History 5mg-325mg Allergy/AdvReac Type Severity Reaction Status Date / Time azithromycin (From Zithromax Allergy Intermediate Hives Verified 06/27/24 21:32 Z-Dayo) lisinopril Allergy Intermediate Hives and Verified 06/27/24 21:32 diarrhea Sulfa (Sulfonamide Allergy Hives Verified 06/27/24 21:32 Antibiotics) Family History Mother Diabetes Heart disease Father AAA (abdominal aortic aneurysm) Heart disease Surgical History History of tracheostomy (11/07/16) 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 Social History household members: spouse Smoking Status: Former smoker how long ago did patient quit smokin years ago, 2ppd second hand exposure: Yes alcohol intake: never substance use type: does not use caffeine: No ROS ROS Narrative Full ROS was not possible due to patient's aphasia. Vital Signs Vital Signs Vital Signs: 06/27/24 21:32 06/27/24 21:55 06/27/24 22:31 Temperature 97.9 F Temperature Source Temporal Pulse Rate 54 L 49 L Respiratory Rate 16 15 Blood Pressure 144/66 H 142/60 H Blood Pressure Mean 92 87 Pulse Ox 86 96 98 Oxygen Delivery Method Room Air Nasal Cannula Nasal Cannula Oxygen Flow Rate (L/min) 4 4 06/27/24 23:00 06/27/24 23:49 Temperature 98.4 F Temperature Source Pulse Rate 47 L 47 L Respiratory Rate 14 17 Blood Pressure 149/59 H 136/61 H Blood Pressure Mean 89 86 Pulse Ox 97 95 Oxygen Delivery Method Nasal Cannula Oxygen Flow Rate (L/min) 3 Weight Weight: 199 lb 4.766 oz Body Mass Index (BMI) 28.5 Results Medical Records Data Attestation: I reviewed the patient's medical records Lab / Micro Data Attestation: I reviewed the patient's lab results. 06/27/24 21:50 06/27/24 21:50 Labs: Laboratory Results - last 24 hr 06/27/24 21:50: WBC 9.2, RBC 4.38 L, Hgb 13.5, Hct 40.6, MCV 92.7, MCH 30.8, MCHC 33.3, RDW Std Deviation 42.7, RDW Coeff of Makayla 12.5, Plt Count 218, MPV 11.2, Immature Gran % (Auto) 1.200 H, Neut % (Auto) 58.3, Lymph % (Auto) 22.4, [place] % (Auto) 10.1 H, Eos % (Auto) 7.0 H, Baso % (Auto) 1.0, Absolute Neuts (auto) 5.4, Absolute Lymphs (auto) 2.05, Nucleated RBC % 0, PT 14.0, INR 1.1, APTT 29.0, Sodium 144, Potassium 4.0, Chloride 112 H, Carbon Dioxide 28.0, Anion Gap 4 L, BUN 17, Creatinine 1.19, Estim Creat Clear Calc 67.19, Est GFR (MDRD) Af Amer 78, Est GFR (MDRD) Non-Af 64, BUN/Creatinine Ratio 14.3, Glucose 127 H, Calcium 8.9 06/27/24 22:27: Urine Color Yellow, Urine Clarity Clear, Urine pH 6.0, Ur Specific [place] 1.020, Urine Protein 30 H, Urine Glucose (UA) Normal, Urine Ketones Negative, Urine Occult Blood Negative, Urine Nitrite Negative, Urine Bilirubin Negative, Urine Urobilinogen Normal, Ur Leukocyte Esterase 500 H, Urine RBC 0 SEEN, Urine WBC 0-5 SEEN, Ur Squamous Epith Cells 0 SEEN, Urine Bacteria 0 SEEN, Urine Mucus 0 SEEN, Urine Yeast RARE Imaging Radiology Impression Brain CT 06/27/24 21:53 IMPRESSION: Chronic changes of the brain. No acute intracranial pathology. Electronically Signed: Jonel Soto DO at 22:47 EST Reading Location ID and State: [address] [place] [address] Tel [phone], Service support , Assessment & Plan Assessment/Plan (1) Adverse drug reaction: QUALIFIERS: Encounter type: initial encounter Qualified Code(s): T50.905A - Adverse effect of unspecified drugs, medicaments and biological substances, initial encounter (2) History of seizures: (3) History of ischemic left MCA stroke: (4) Polypharmacy: (5) Pneumonia: QUALIFIERS: Laterality: right Lung location: lower lobe of lung Pneumonia type: due to unspecified organism Qualified Code(s): J18.9 - Pneumonia, unspecified organism (6) HTN (hypertension): QUALIFIERS: Hypertension type: essential hypertension Qualified Code(s): I10 - Essential (primary) hypertension (7) Hyperlipidemia: QUALIFIERS: Hyperlipidemia type: unspecified Qualified Code(s): E78.5 - Hyperlipidemia, unspecified (8) Atherosclerosis of coronary artery without angina pectoris: QUALIFIERS: Coronary Disease-Associated Artery/Lesion type: [place] artery [place] vs. transplanted heart: [place] heart Qualified Code(s): I25.10 - Atherosclerotic heart disease of [place] coronary artery without angina pectoris (9) Sleep apnea: QUALIFIERS: Sleep apnea type: central sleep apnea associated with underlying condition Qualified Code(s): G47.37 - Central sleep apnea in conditions classified elsewhere (10) Nicotine dependence, cigarettes, in remission: PLAN: Plan 1. Adverse Drug Reaction to Keppra causing Intermittent Confusion - 2. Polypharmacy with patient simultaneously on numerous ATOMIC PHYSICS TEACHER-active agents, including opiates, benzodiazepines and multiple antidepressants in this chronically ill patient with a history of multiple CVA's which are suspected to be the underlying etiology of his recently diagnosed Epilepsy complicating #1 - 3. Recently diagnosed RLL Pneumonia with Leukocytosis of 14.3K and Hypoxia in ER here June 26, 2024 treated with oral Doxycycline and currently on 6L NC at night adding to the medical complexity of #1 & #2 in the setting of known previous pneumonia - 4. History of depression with anxiety; on trazodone, buspirone, escitalopram and prn lorazepam q. 8 hours compounding #1 - #3 - Noted. 5. OA; on hydrocodone-APAP q. 6 hours prn - Noted. We will hold this agent for the time being in an effort to allow time for his sensorium to clear. 6. History of GERD; on pepcid - Continue this agent at 50% of current dose to minimize potential deliriogenic effects. 7. Essential hypertension; on amlodipine, losartan and metoprolol - 8. Hyperlipidemia; on atorvastatin and ezetimibe - 9. Overweight; with BMI of 28.6 this admission plus DARON on nocturnal oxygen as noted above - 10. History of tobacco abuse (quit ~2015 and ~2020) - Noted. 11. Chronic atrial fibrillation; on amiodarone and apixaban - Maintain current regimen. 12. CAD; s/p CABG x 5 (2016) with subsequent history of ischemic Left MCA CVA as a post-CABG complication (2017); with subsequent aphasia, g-tube placement plus tracheostomy and chronic debility with Right facial droop and RUE paralysis - noted. 13. History of cerebral artery aneurysm - Noted. 14. History of carotid artery disease - Noted. 15. History of stenosis of the Left subclavian artery - Noted. 16. History of mass of RUL - Noted with no signs of recurrence. 17. History of sepsis - Noted. 18. History of PTX - Noted with no signs of recurrence. 19. History of bimalleolar fracture of the Right ankle - Noted. 20. Listed allergy to azithromycin (hives) - Noted. 21. Listed allergy to sulfonamide antibiotics (hives) - Noted. 22. Listed allergy to lisinopril (hives & diarrhea) - Noted. 23. JENN - Stable with hemoglobin of 13.5 g/dL present on admission. 24. DVT prophylaxis - Patient is already on apixaban for #11 which will be continued. Total time: Approximately (but not less than) 85 minutes. Charges/Coding Visit Charges OBSV E&M: 13333 Observ/hosp same date L3
[2024-06-28] VITALS (7 sets, daily range): BP systolic 127–145; BP diastolic 57–62; PULSE 46–80; RESP 17–18; TEMP 36.2–36.6; O2SAT 94–100; BMI 28.5
[2024-06-28] MEDS: 0.9% Normal Saline (1000mL) 1,000 ML 50 ML IV (01:36)
[2024-06-28] MEDS: busPIRone 15 MG TABLET PO (05:14)
[2024-06-28] MEDS: Baclofen 10 MG Tablet 5 MG PO (05:14)
[2024-06-28 06:16] LABS: Absolute Lymphocyte Count 2.02 X10^3/uL (0.83-4.51); Absolute Neutrophil Count 5.1 X10^3/uL (2.0-7.7); Basophil# 0.08 X10^3/uL; Basophil% 0.9 % (0-1); Eosinophil# 0.76 X10^3/uL; Eosinophils% 8.3 % (0-5); Hematocrit 37.8 % (40-54); Hemoglobin 12.6 g/dL (13.0-16.5); Lymphocyte # 2.02 X10^3/ul (0.83-4.51); Mean Corp Hgb Conc 33.3 g/dL (32-36); Mean Corpuscular Hgb 31.3 pg (27.0-32.0); Mean Platelet Vol. 11.5 fl (6.2-12.0); Monocyte# 1.06 X10^3/uL; Monocyte% 11.5 % (0-10); NRBC Flagged by Analyzer 0 % (0-5); Neutrophil # 5.13 X10^3/uL (2.7-7.7); Neutrophil % 55.7 % (47-70); Platelet Count 216 K/mm3 (150-450); RBC Distribution Width CV 12.6 % (11.6-14.6); RBC Distribution Width SD 43.2 fl (35.1-43.9); Red Blood Count 4.02 M/mm3 (4.6-6.2); White Blood Count 9.2 K/mm3 (4.4-11.0)
[2024-06-28 07:11] LABS: ALB/GLOB Ratio 0.9 RATIO (0.9-2.4); AST(SGOT) 15 U/L (15-37); Alanine Aminotransfer ALT/SGPT 18 U/L (16-61); Alkaline Phosphatase 102 U/L (45-117); Anion Gap 5 (5-15); BUN 15 mg/dL (7-18); BUN/Creat Ratio 14.2 RATIO (10-20); Calcium,Total 8.5 mg/dL (8.5-10.1); Chloride 112 mmol/L (98-107); Cholesterol 128 mg/dL (200); Creatinine, Serum 1.06 mg/dL (0.70-1.30); EST Glomerular Filtration Rate 74 mL/min (>60); Est Glom Filt Rate - Afr Amer 89 mL/min (>60); Estimated Creatinine Clearance 75.43 ml/min; Globulin 3.3 g/dL (2.2-4.2); Glucose 123 mg/dL (74-106); High Density Lipoprotein 38 mg/dL; Magnesium 2.1 mg/dL (1.6-2.6); Phosphorus 3.4 mg/dL (2.5-4.9); Potassium 3.8 mmol/L (3.5-5.1); Protein, Total 6.3 g/dL (6.4-8.2); Sodium Level 144 mmol/L (136-145); Triglycerides 205 mg/dL; Very Low Density Lipoprotein 41 mg/dL (5-40)
[2024-06-28] MEDS: Ipratropium/Albuterol Sulfate 3 ML AMPUL.NEB INHALATION ×2 (07:37→13:59)
--- NOTE | 2024-06-28 07:41 | PN.HOSP_ITS ---
Reason for Visit Reason for Visit: Diagnoses Hyperlipidemia, unspecified (06/28/24) Nicotine dependence, cigarettes, in remission (06/28/24) Sleep apnea, unspecified (06/28/24) Essential (primary) hypertension (06/28/24) Atherosclerotic heart disease of [place] coronary artery without angina pectoris (06/28/24) Cerebral infarction due to unspecified occlusion or stenosis of left middle cerebral artery (06/28/24) Pneumonia, unspecified organism (06/28/24) Adverse effect of unspecified drugs, medicaments and biological substances, initial encounter (06/28/24) Other terminal block assembler (current) drug therapy (06/28/24) Personal history of transient ischemic attack (TIA), and cerebral infarction without residual deficits (06/28/24) Personal history of other specified conditions (06/28/24) Subjective Subjective More confused from his baseline but better than yesterday according to his . Objective Data Objective Data Vital Signs: Vital Signs Temp Pulse Resp BP Pulse Ox O2 Del Method O2 Flow Rate 36.6 C 48 L 18 138/62 H 98 Nasal Cannula 4 06/28/24 05:05 06/28/24 05:05 06/28/24 05:05 06/28/24 05:05 06/28/24 05:05 06/28/24 05:05 06/28/24 05:05 Oxygen Flow Rate (L/min) 4 Oxygen Delivery Method Nasal Cannula Weight: 90.4 kg Body Mass Index (BMI) 28.5 Intake & Output: Intake and Output for Last 24 Hours 06/26/24 06/27/24 06/28/24 23:59 23:59 23:59 Intake Total 270 / 270 Output Total 0 / 0 Balance 270 / 270 Lab / Micro Data 06/28/24 04:36 06/28/24 04:36 Labs: Laboratory Results - last 24 hr 06/27/24 21:50: WBC 9.2, RBC 4.38 L, Hgb 13.5, Hct 40.6, MCV 92.7, MCH 30.8, MCHC 33.3, RDW Std Deviation 42.7, RDW Coeff of Makayla 12.5, Plt Count 218, MPV 11.2, Immature Gran % (Auto) 1.200 H, Neut % (Auto) 58.3, Lymph % (Auto) 22.4, M lopez % (Auto) 10.1 H, Eos % (Auto) 7.0 H, Baso % (Auto) 1.0, Absolute Neuts (auto) 5.4, Absolute Lymphs (auto) 2.05, Nucleated RBC % 0, PT 14.0, INR 1.1, APTT 29.0, Sodium 144, Potassium 4.0, Chloride 112 H, Carbon Dioxide 28.0, Anion Gap 4 L, BUN 17, Creatinine 1.19, Estim Creat Clear Calc 67.19, Est GFR (MDRD) Af Amer 78, Est GFR (MDRD) Non-Af 64, BUN/Creatinine Ratio 14.3, Glucose 127 H, Calcium 8.9 06/27/24 22:27: Urine Color Yellow, Urine Clarity Clear, Urine pH 6.0, Ur Specific [place] 1.020, Urine Protein 30 H, Urine Glucose (UA) Normal, Urine Ketones Negative, Urine Occult Blood Negative, Urine Nitrite Negative, Urine Bilirubin Negative, Urine Urobilinogen Normal, Ur Leukocyte Esterase 500 H, Urine RBC 0 SEEN, Urine WBC 0-5 SEEN, Ur Squamous Epith Cells 0 SEEN, Urine Bacteria 0 SEEN, Urine Mucus 0 SEEN, Urine Yeast RARE 06/28/24 04:36: WBC 9.2, RBC 4.02 L, Hgb 12.6 L, Hct 37.8 L, MCV 94.0, MCH 31.3, MCHC 33.3, RDW Std Deviation 43.2, RDW Coeff of Makayla 12.6, Plt Count 216, MPV 11.5, Immature Gran % (Auto) 1.600 H, Neut % (Auto) 55.7, Lymph % (Auto) 22.0, M lopez % (Auto) 11.5 H, Eos % (Auto) 8.3 H, Baso % (Auto) 0.9, Absolute Neuts (auto) 5.1, Absolute Lymphs (auto) 2.02, Nucleated RBC % 0, Sodium 144, Potassium 3.8, Chloride 112 H, Carbon Dioxide 27.0, Anion Gap 5, BUN 15, Creatinine 1.06, Estim Creat Clear Calc 75.43, Est GFR (MDRD) Af Amer 89, Est GFR (MDRD) Non-Af 74, BUN/Creatinine Ratio 14.2, Glucose 123 H, Calcium 8.5, Phosphorus 3.4, Magnesium 2.1, Total Bilirubin 0.50, AST 15, ALT 18, Alkaline Phosphatase 102, Total Protein 6.3 L, Albumin 3.0 L, Globulin 3.3, Albumin/Globulin Ratio 0.9, Triglycerides 205 H, Cholesterol 128, LDL Cholesterol 49, VLDL Cholesterol 41 H, HDL Cholesterol 38 L, Folate 13.60 Radiography Diagnostic Testing: Radiology Impression Brain CT 06/27/24 21:53 IMPRESSION: Chronic changes of the brain. No acute intracranial pathology. Electronically Signed: Jonel Charles, at 22:47 EST , Chest X-Ray 06/27/24 22:04 IMPRESSION: Central pulmonary vascular prominence. Prominent right basilar interstitial markings and mild infiltrate. Electronically Signed: Jonelgeoff Soto DO at 23:53 EST , Physical Exam Const no apparent distress Constitutional Narrative: Pleasantly confused. Laughing out of context. Initially I thought out he was laughing at me because my arm is in a sling but he was laughing at with no context to other things. Only able to answer orientation questions when his leads him which she states that his his baseline. HEENT head/scalp atraumatic and moist oral mucous membranes Resp normal respiratory effort, no retractions, no use of accessory muscles and clear to auscultation bilaterally Cardio regular rate, regular rhythm, S1 normal heart sound and S2 normal heart sound GI normal to inspection, nondistended, normoactive bowel sounds and soft to palpation Extremity normal to inspection and full ROM Neuro no sensory deficits noted Sensorium / Orientation: awake Assessment & Plan Assessment/Plan (1) Adverse drug reaction: QUALIFIERS: Encounter type: initial encounter Qualified Code(s): T50.905A - Adverse effect of unspecified drugs, medicaments and biological substances, initial encounter (2) History of seizures: (3) History of ischemic left MCA stroke: (4) Polypharmacy: (5) Pneumonia: QUALIFIERS: Laterality: right Lung location: lower lobe of lung Pneumonia type: due to unspecified organism Qualified Code(s): J18.9 - Pneumonia, unspecified organism PLAN: Plan Encephalopathy * likely toxic. Recently started on levetiracetam for absence seizures but also take baclofen, buspirone, escitalopram, lorazepam. (Reviewed [facility], pt receives routine lorazepam, no norco Rx since July 2023). Likely a combination of all these medications plus his h/o hemorrhagic CVA. * Hold potentiating medications at this time. * Cannot rule out underlying seizures. * Patient has limited mental capacity at baseline. This is likely after his stroke. Seizure d/o * apparently a new diagnosis and had been started on levetiracetam 3-days prior to presentation. Currently held given the confusion. * Neuro consult * Request records from [facility] Medicine/Dr. Bennett (unable to pull up info through [facility] as it is non-function at this time). * Check EEG. * is very concerned that this increased confusion is due to his levetiracetam as she looked at the side effects and saw that levetiracetam can cause strokes. I am not sure how much the levetiracetam was contributing to his confusion outside of him having a pneumonia and also being on other medications that could potentiate his confusion. Pneumonia * suspect pneumococcal * CXR appears worse from the despite being on doxycycline * Continue CTX (no azithro given allergy). * PEP, * SCx, * strep and legionella antigens negative. * ST eval Chronic conditions: * HTN: continue amlodipine, losartan, * HLP: continue atorvastatin * anemia: continue ferrous sulfate * afib: metoprolol, amiodarone. Anticoagulated with apixaban. VTE prophylaxis: not indicated as he is already anticoagulated. Discussed with the patient's at bedside. When the patient would laugh with no contacts, the would chime in a laugh with him. Is unclear if there was an inside joke or if she was just up easing him when he is laughing. Charges/Coding Visit Charges Inpatient E&M: 31880 Subs Hosp L2
[2024-06-28 09:26] LABS: Amphetamine Urine VISTA NEGATIVE (<1000 ng/mL); Barbiturate Urine VISTA NEGATIVE (< 200 ng/mL); Benzodiazepine Urine VISTA NEGATIVE (< 200 ng/mL); Cocaine Urine VISTA NEGATIVE (< 300 ng/mL); Ecstacy Urine VISTA POSITIVE (< 500 ng/mL); Methadone Urine VISTA NEGATIVE (< 300 ng/mL); PCP Urine VISTA NEGATIVE (< 25 ng/mL); THC Urine VISTA POSITIVE (< 50 ng/mL); Vista UDS pH Range 4
[2024-06-28] MEDS: Miconazole Nitrate Cream 1 APPLIC TOPICAL (10:01)
[2024-06-28] MEDS: Fluticasone 0.05% 1 SPRAY NASAL.SRY 2 SPRAY NASAL (10:01)
[2024-06-28] MEDS: Lactobacillis Acidophilus 1 CAP PO ×2 (10:03→13:37)
[2024-06-28] MEDS: Potassium Chloride Oral Tablet 20 MEQ PO ×2 (10:04→13:37)
[2024-06-28] MEDS: Ferrous Sulfate 325 MG Tablet PO (10:04)
[2024-06-28] MEDS: APIXABAN 5 MG TABLET PO (10:04)
[2024-06-28] MEDS: Multivitamins,Ther W-Minerals Tablet 1 TABLET PO (10:04)
[2024-06-28] MEDS: Ezetimibe 10 MG Tablet PO (10:14)
[2024-06-28] MEDS: Losartan Potassium 25 MG Tablet PO (10:28)
[2024-06-28] MEDS: amLODIPine 5 MG Tablet PO (10:28)
--- NOTE | 2024-06-28 11:25 | NEURO.CONS ---
Assessment and Plan: Neuro Assessment/Plan ROBERTA ZEE is a 68 M with a past medical history of left hemispheric stroke with resultant right sided weakness being evaluated by Teleneurology for episodes of confusion, difficulty with coordination after starting Keppra 3 days ago. Patient had abnormal EEG done in the past that showed left hemispheric IEA and episodes of staring events associated with confusion concerning for seizures. It is reasonable to switch him to Vimpat 100 mg BID and wean down Keppra slowly. Please decrease dose of Keppra to 250 mg BID for a week followed by 250 mg nightly for a week followed by discontinuation thereafter. Please perform EKG to look for NM interval ,if normal start Vimpat 100 mg BID. Perform routine EEG. Ct head w/o contrast with no acute findings. Exam is baseline. F/P with neurologist in 6 weeks. I personally attended this patient and spent a total time of 55 minutes evaluating this patient including clinical assessment, review of chart, medical history imaging, and determining appropriate treatment and workup. Leta Luciano MD [facility] Teleneurology department HPI Consult Data Date of Consult: 06/28/24 HPI Narrative HPI Narrative: As per HPI: 68 M with a past medical history of essential hypertension; on amlodipine, losartan and metoprolol, hyperlipidemia; on atorvastatin and ezetimibe, overweight; with BMI of 28.6 this admission, DARON; noncompliant with CPAP, history of tobacco abuse (quit ~2015 and ~2020), chronic atrial fibrillation; on amiodarone and apixaban, CAD; s/p CABG x 5 (2017), history of ischemic Left MCA CVA as a post-CABG complication (2017); with subsequent aphasia, previous g-tube placement plus tracheostomy with suspected oropharyngeal dysphagia causing suspected silent aspiration with recurrent episodes of pneumonia and chronic debility with Right facial droop and RUE paresis with patient able to ambulate with cane, history of cerebral artery aneurysm, history of carotid artery disease, history of stenosis of the Left subclavian artery, history of mass of RUL, history of sepsis, history of pneumonia, history of PTX, history of bimalleolar fracture of the Right ankle, listed allergy to azithromycin (hives), listed allergy to sulfonamide antibiotics (hives), listed allergy to lisinopril (hives & diarrhea), history of depression with anxiety; on trazodone, buspirone, escitalopram and prn lorazepam q. 8 hours, JENN, history of GERD; on pepcid, OA; on hydrocodone-APAP q. 6 hours prn, recently diagnosed RLL Pneumonia with Leukocytosis of 14.3K and Hypoxia in ER here June 26, 2024 treated with oral Doxycycline and currently on 6L NC at night in addition to recently diagnosed Epilepsy with Absence Seizures followed by protracted postictal periods after positive EEG that revealed epileptiform discharges with patient subsequently started on Keppra 500 mg PO BID by his new neurologist, Dr. Bennett, who presents to [facility] ER with his complaining of he has been intermittently confused since starting this new AED. On my evaluation, patient did not appear confused and was able to follow commands . noticed that his left eye was not normal and patient was more unsteady at baseline since starting Keppra.She was also worried about a new stroke and brought in for further evaluation [facility] Medical History Closed right ankle fracture Wears dentures Wears glasses History of Clostridium difficile infection Anxiety Bruising Ambulates with cane Easy bruising Gastric reflux Former smoker CPAP (continuous positive airway pressure) dependence History of echocardiogram Cardiology follow-up encounter History of atrial fibrillation Bimalleolar fracture of right ankle Hypoxia History of stroke History of stroke Stroke/cerebrovascular accident halfway current use of amiodarone Chronic atrial fibrillation Atherosclerosis of coronary artery without angina pectoris Confusion Mixed obstructive and restrictive ventilatory defect Aphasia as late effect of stroke Debility Dysphagia Anemia Lower resp. tract infection Respiratory failure Hyperlipidemia HTN (hypertension) Left acute arterial ischemic stroke, MCA (middle cerebral artery) (10/31/16) Sepsis Cerebral arterial aneurysm Carotid artery disease Smoker Home Medications ?Medication ?Instructions ?Recorded ?Last Taken ?Type famotidine 20 mg tablet 20 mg PO QHS PRN PRN Gastric Reflux 12/21/16 08/15/22 History baclofen 10 mg tablet 5 mg (1/2 x 10 mg) PO TID 02/05/17 08/07/23 09:00 Rx multivitamin,lo-rhcg-mjpgvrgr 1 tab PO DAILY vitamin 12/04/18 08/06/23 History (Complete Multivitamin tablet) potassium chloride 10 mEq 20 meq (2 x 10 mEq) PO TID 04/19/20 08/06/23 Rx tablet,extended release potassium #90 tabs ezetimibe 10 mg tablet 10 mg PO DAILY 04/22/21 08/06/23 History escitalopram oxalate 20 mg tablet 20 mg PO DAILY antidepressant 06/11/21 08/06/23 History menthol 0.44 %-zinc oxide 20.6 % 1 applic topical TID PRN Diaper 06/17/21 Unknown Rx topical ointment (Calmoseptine) Rash #0 grams amiodarone 100 mg tablet 100 mg PO DAILY HEART 07/11/21 08/07/23 09:00 History albuterol sulfate 90 mcg/actuation 2 inh inhalation Q4H PRN shortness 05/29/22 08/07/23 Rx aerosol inhaler (Ventolin HFA) of breath or wheezing #18 grams trazodone 50 mg tablet 100 mg PO QHS DEPRESSION 08/16/22 08/06/23 History miconazole nitrate 2 % topical 1 applic topical BID 14 days #15 08/17/22 Unknown Rx cream grams amlodipine 5 mg tablet 5 mg PO BID 11/11/22 08/07/23 09:00 History apixaban 5 mg tablet (Eliquis) 5 mg PO BID 11/11/22 08/05/23 History tiotropium 2.5 mcg-olodaterol 2.5 2 puff inhalation DAILY 05/29/23 08/06/23 History mcg/actuation mist for inhalation (Stiolto Respimat) albuterol sulfate 2.5 mg/3 mL 2.5 mg continuous nebulization Q6H 08/02/23 Unknown History (0.083 %) solution for nebulization PRN shortness of breath or wheezing atorvastatin 40 mg tablet 40 mg PO DAILY 08/02/23 08/06/23 History ferrous sulfate 325 mg (65 mg 325 mg PO BID 08/02/23 08/06/23 History iron) tablet (FeroSul) losartan 25 mg tablet 25 mg PO DAILY 08/02/23 08/07/23 09:00 History metoprolol tartrate 25 mg tablet 12.5 mg PO BID 08/02/23 08/07/23 09:00 History fluticasone propionate 50 2 spray intranasal DAILY #16 grams 12/02/23 Unknown Rx mcg/actuation nasal spray,suspension (Flonase Allergy Relief) buspirone 15 mg tablet 15 mg PO TID 04/08/24 Unknown History lorazepam 1 mg tablet (Ativan) 1 - 2 mg PO Q8H PRN agitation 04/08/24 Unknown History doxycycline hyclate 100 mg capsule 100 mg PO BID 7 days #14 caps 06/26/24 Unknown Rx hydrocodone-acetaminophen 5-325mg 1 - 2 tab PO Q6H PRN PRN pain 06/27/24 Unknown History 5mg-325mg Allergy/AdvReac Type Severity Reaction Status Date / Time azithromycin (From Zithromax Allergy Intermediate Hives Verified 06/27/24 21:32 Z-Dayo) lisinopril Allergy Intermediate Hives and Verified 06/27/24 21:32 diarrhea Sulfa (Sulfonamide Allergy Hives Verified 06/27/24 21:32 Antibiotics) Family History Mother Diabetes Heart disease Father AAA (abdominal aortic aneurysm) Heart disease Surgical History History of tracheostomy (11/07/16) 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 Social History household members: spouse Smoking Status: Former smoker how long ago did patient quit smokin years ago, 2ppd second hand exposure: Yes alcohol intake: never substance use type: does not use caffeine: No Vital Signs Vital Signs Vital Signs: 06/27/24 21:32 06/27/24 21:55 06/27/24 22:31 Temperature 97.9 F Temperature Source Temporal Pulse Rate 54 L 49 L Pulse Strength Respiratory Rate 16 15 Respiratory Effort Respiratory Depth Respiratory Pattern Blood Pressure 144/66 H 142/60 H Blood Pressure Mean 92 87 Blood Pressure Source Blood Pressure Position Blood Pressure Location Pulse Ox 86 96 98 Oxygen Delivery Method Room Air Nasal Cannula Nasal Cannula Oxygen Flow Rate (L/min) 4 4 06/27/24 23:00 06/27/24 23:49 06/28/24 02:00 Temperature 98.4 F 97.5 F L Temperature Source Oral Pulse Rate 47 L 47 L 50 L Pulse Strength Respiratory Rate 14 17 18 Respiratory Effort Respiratory Depth Respiratory Pattern Blood Pressure 149/59 H 136/61 H 144/57 H Blood Pressure Mean 89 86 86 Blood Pressure Source Monitor Blood Pressure Position Semi-Fowlers Blood Pressure Location Right Arm Pulse Ox 97 95 100 Oxygen Delivery Method Nasal Cannula Nasal Cannula Oxygen Flow Rate (L/min) 3 4 06/28/24 02:00 06/28/24 02:00 06/28/24 03:20 Temperature 97.5 F L Temperature Source Oral Pulse Rate 50 L Pulse Strength Respiratory Rate 18 Respiratory Effort Normal Non-Labored Respiratory Depth Normal Respiratory Pattern Normal Blood Pressure 144/57 H Blood Pressure Mean 86 Blood Pressure Source Blood Pressure Position Blood Pressure Location Pulse Ox 100 Oxygen Delivery Method Nasal Cannula Nasal Cannula Nasal Cannula Oxygen Flow Rate (L/min) 4 4 4 06/28/24 05:05 06/28/24 05:05 06/28/24 07:37 Temperature 97.8 F 97.8 F Temperature Source Temporal Temporal Pulse Rate 48 L 48 L 80 Pulse Strength Respiratory Rate 18 18 17 Respiratory Effort Respiratory Depth Respiratory Pattern Normal Blood Pressure 138/62 H 138/62 H Blood Pressure Mean 87 87 Blood Pressure Source Monitor Blood Pressure Position Semi-Fowlers Blood Pressure Location Right Arm Pulse Ox 98 98 Oxygen Delivery Method Nasal Cannula Nasal Cannula Oxygen Flow Rate (L/min) 4 4 06/28/24 07:37 06/28/24 08:18 06/28/24 09:32 Temperature Temperature Source Pulse Rate Pulse Strength Normal (2+) Respiratory Rate Respiratory Effort Normal Non-Labored Respiratory Depth Normal Respiratory Pattern Normal Blood Pressure Blood Pressure Mean Blood Pressure Source Blood Pressure Position Blood Pressure Location Pulse Ox 97 Oxygen Delivery Method Nasal Cannula Nasal Cannula Oxygen Flow Rate (L/min) 3 4 06/28/24 09:56 06/28/24 09:57 Temperature 97.2 F L 97.2 F L Temperature Source Temporal Temporal Pulse Rate 46 L 46 L Pulse Strength Respiratory Rate 18 18 Respiratory Effort Respiratory Depth Respiratory Pattern Blood Pressure 145/60 H 145/60 H Blood Pressure Mean 88 88 Blood Pressure Source Monitor Blood Pressure Position Semi-Fowlers Blood Pressure Location Right Arm Pulse Ox 96 96 Oxygen Delivery Method Nasal Cannula Nasal Cannula Oxygen Flow Rate (L/min) 3 3 Weight Weight: 90.4 kg Body Mass Index (BMI) 28.5 EEG Results Procedure Details EEG Procedure Details: ROBERTA ZEE is a 68 year old M with a past medical history of , who presents for evaluation of Electroencephalogram on DATE at TIME Physical Exam Neuro Neuro Narrative: -? General: Laying comfortably in bed; in no acute distress. -? HENT: Normal oropharynx and mucosa. Normal external appearance of ears and nose. Exophthalmos. -? Neck: Supple, no pain or tenderness -? CV:? No peripheral edema. -? Pulmonary:? Normal respiratory effort. -? Ext: No cyanosis, edema, or deformity -? Skin: No rash. Normal palpation of skin.? -? Musculoskeletal: full range of motion; no joint tenderness. Normal digits and nails by inspection. No clubbing. -? NEURO: -? Mental Status: aphasic however can follow commands -? Cranial Nerves: right sided facial droop, facial sensation intact, hearing intact, tongue midline, no evidence of atrophy or fibrillations. As performed by the nurse. -? Motor: right upper extremity ,right lower extremity weakness. R L R L -? Tone: increase tone in right arm and leg -? Sensation- Intact to light touch bilaterally -? Coordination: normal on left side -? Gait- deferred Lab / Micro Data 06/28/24 04:36 06/28/24 04:36 Labs: Laboratory Results - last 24 hr 06/27/24 21:50: WBC 9.2, RBC 4.38 L, Hgb 13.5, Hct 40.6, MCV 92.7, MCH 30.8, MCHC 33.3, RDW Std Deviation 42.7, RDW Coeff of Makayla 12.5, Plt Count 218, MPV 11.2, Immature Gran % (Auto) 1.200 H, Neut % (Auto) 58.3, Lymph % (Auto) 22.4, [place] % (Auto) 10.1 H, Eos % (Auto) 7.0 H, Baso % (Auto) 1.0, Absolute Neuts (auto) 5.4, Absolute Lymphs (auto) 2.05, Nucleated RBC % 0, PT 14.0, INR 1.1, APTT 29.0, Sodium 144, Potassium 4.0, Chloride 112 H, Carbon Dioxide 28.0, Anion Gap 4 L, BUN 17, Creatinine 1.19, Estim Creat Clear Calc 67.19, Est GFR (MDRD) Af Amer 78, Est GFR (MDRD) Non-Af 64, BUN/Creatinine Ratio 14.3, Glucose 127 H, Calcium 8.9 06/27/24 22:27: Urine Color Yellow, Urine Clarity Clear, Urine pH 6.0, Ur Specific [place] 1.020, Urine Protein 30 H, Urine Glucose (UA) Normal, Urine Ketones Negative, Urine Occult Blood Negative, Urine Nitrite Negative, Urine Bilirubin Negative, Urine Urobilinogen Normal, Ur Leukocyte Esterase 500 H, Urine RBC 0 SEEN, Urine WBC 0-5 SEEN, Ur Squamous Epith Cells 0 SEEN, Urine Bacteria 0 SEEN, Urine Mucus 0 SEEN, Urine Yeast RARE, Urine Opiates Screen NEGATIVE, Urine Methadone Screen NEGATIVE, Ur Barbiturates Screen NEGATIVE, Ur Phencyclidine Scrn NEGATIVE, Ur Amphetamines Screen NEGATIVE, MDMA (Ecstasy) Screen POSITIVE H, U Benzodiazepines Scrn NEGATIVE, Urine Cocaine Screen NEGATIVE, U Cannabinoids Screen POSITIVE H, Ur Drug Screen Comment 06/28/24 04:36: WBC 9.2, RBC 4.02 L, Hgb 12.6 L, Hct 37.8 L, MCV 94.0, MCH 31.3, MCHC 33.3, RDW Std Deviation 43.2, RDW Coeff of Makayla 12.6, Plt Count 216, MPV 11.5, Immature Gran % (Auto) 1.600 H, Neut % (Auto) 55.7, Lymph % (Auto) 22.0, [place] % (Auto) 11.5 H, Eos % (Auto) 8.3 H, Baso % (Auto) 0.9, Absolute Neuts (auto) 5.1, Absolute Lymphs (auto) 2.02, Nucleated RBC % 0, Sodium 144, Potassium 3.8, Chloride 112 H, Carbon Dioxide 27.0, Anion Gap 5, BUN 15, Creatinine 1.06, Estim Creat Clear Calc 75.43, Est GFR (MDRD) Af Amer 89, Est GFR (MDRD) Non-Af 74, BUN/Creatinine Ratio 14.2, Glucose 123 H, Hemoglobin A1c 5.0, Calcium 8.5, Phosphorus 3.4, Magnesium 2.1, Total Bilirubin 0.50, AST 15, ALT 18, Alkaline Phosphatase 102, Total Protein 6.3 L, Albumin 3.0 L, Globulin 3.3, Albumin/Globulin Ratio 0.9, Triglycerides 205 H, Cholesterol 128, LDL Cholesterol 49, VLDL Cholesterol 41 H, HDL Cholesterol 38 L, Folate 13.60 Micro: Microbiology 06/27/24 22:27 Urine, Clean Catch Legionella Antigen - Final 06/27/24 22:27 Urine, Clean Catch Streptococcus pneumoniae Antigen (M - Final Imaging Radiology Impression Brain CT 06/27/24 21:53 IMPRESSION: Chronic changes of the brain. No acute intracranial pathology. Electronically Signed: Jonel Soto DO at 22:47 EST , Chest X-Ray 06/27/24 22:04 IMPRESSION: Central pulmonary vascular prominence. Prominent right basilar interstitial markings and mild infiltrate. Electronically Signed: Jonel Soto DO at 23:53 EST , Active Medications Active Medications Active Medications: Current Medications Generic Name Dose Route Start Last Admin Trade Name Raadq PRN Reason Stop Dose Admin Acetaminophen 650 mg 06/28/24 01:20 Acetaminophen 325 Mg Tablet PO Q6H PRN PRN Pain 1-10 Or Fever>100.7 Al Hydroxide/Mg Hydroxide 30 ml 06/28/24 01:20 Mag Hydrox/Al Hydrox/Simeth 30 Ml Udc PO Q6H PRN PRN Gastric Burning Albuterol Sulfate 2.5 mg 06/28/24 01:20 Albuterol 2.5 Mg/3 Ml Vial.Neb. INHALATION Q4H PRN PRN shortness of breath/wheezing Albuterol/Ipratropium 3 ml 06/28/24 06:00 06/28/24 07:37 Ipratropium/Albuterol Sulfate 3 Ml Ampul.Neb INHALATION 3 ml Q6HWA.RT TIFFANI Administration Amiodarone HCl 100 mg 06/28/24 08:00 06/28/24 10:24 Amiodarone 200 Mg Tablet PO Not Given DAILYCM TIFFANI Protocol Amlodipine Besylate 5 mg 06/28/24 10:00 06/28/24 10:28 Amlodipine 5 Mg Tablet PO 5 mg BID TIFFANI Administration Protocol Apixaban 5 mg 06/28/24 10:00 06/28/24 10:04 Apixaban 5 Mg Tablet PO 5 mg BID TIFFANI Administration Atorvastatin Calcium 40 mg 06/28/24 22:00 Atorvastatin Calcium 40 Mg Tablet PO 2200 TIFFANI Calamine/Phenol 1 applic 06/28/24 01:20 Menthol/Lanolin/Calamine/Znox 113 Gm Tube TOPICAL TID PRN PRN Diaper Rash Protocol Ezetimibe 10 mg 06/28/24 10:00 06/28/24 10:14 Ezetimibe 10 Mg Tablet PO 10 mg DAILY TIFFANI Administration Famotidine 10 mg 06/28/24 01:20 Famotidine 20 Mg Tablet PO QHS PRN PRN Gastric Reflux Ferrous Sulfate 325 mg 06/28/24 08:00 06/28/24 10:04 Ferrous Sulfate 325 Mg Tablet PO 325 mg BID TIFFANI Administration Fluticasone Propionate 2 spray 06/28/24 10:00 06/28/24 10:01 Fluticasone 0.05% 1 [place] Nasal.Sry NASAL 2 spray DAILY TIFFANI Administration Sodium Chloride 1,000 mls @ 50 mls/hr 06/28/24 01:18 06/28/24 01:36 IV 06/28/24 21:17 50 mls/hr .Q20H TIFFANI Administration Protocol Ceftriaxone Sodium 1 gm in 50 mls @ 100 mls/hr 06/28/24 22:00 Rocephin IV 2200 TIFFANI Sodium Chloride 500 mls @ 15 mls/hr 06/28/24 01:28 IV .[id number] PRN Saline Flush Sodium Chloride 500 mls @ 15 mls/hr 06/28/24 01:28 IV .[id number] PRN Additional IVPB Infusion Losartan Potassium 25 mg 06/28/24 10:00 06/28/24 10:28 Losartan Potassium 25 Mg Tablet PO 25 mg DAILY TIFFANI Administration Protocol Melatonin 3 mg 06/28/24 01:20 Melatonin 3 Mg Tablet PO QHS PRN PRN INSOMNIA Metoprolol Tartrate 12.5 mg 06/28/24 10:00 06/28/24 10:22 Metoprolol Tartrate 25 Mg Tablet PO Not Given BID [facility] Protocol Miconazole Nitrate 1 applic 06/28/24 10:00 06/28/24 10:01 Miconazole Nitrate Cream TOPICAL 1 applic BID TIFFANI Administration Protocol Multivitamins/Minerals 1 tablet 06/28/24 08:00 06/28/24 10:04 Multivitamins,Ther W-Minerals Tablet PO 1 tablet DAILYCM TIFFANI Administration Potassium Chloride 20 meq 06/28/24 08:00 06/28/24 10:04 Potassium Chloride Oral Tablet 20 Meq PO 20 meq TIDCM TIFFANI Administration Sodium Chloride 10 - 40 ml 06/28/24 01:28 0.9% Saline Lock 10 Ml Syringe IV UD PRN SALINE FLUSH
--- NOTE | 2024-06-28 14:18 | EKG12_ITS ---
Test Reason : INITIATION OF MED Blood Pressure : */* mmHG Vent. Rate : 51 BPM Atrial Rate : 51 BPM P-R Int : 232 ms QRS Dur : 92 ms QT Int : 500 ms P-R-T Axes : 41 -47 85 degrees QTcB Int : 460 ms Sinus bradycardia with 1st degree A-V block Left anterior fascicular block Cannot rule out Inferior infarct (masked by fascicular block?) , age undetermined Abnormal ECG When compared with ECG of 27-Jun-2024 22:17, MANUAL COMPARISON REQUIRED DATA IS UNCONFIRMED Confirmed by Danial Michel ([id number]), assignment desk editor KHRIS HOPKINS ([id number]) on 06/29/2024 9:57:47 AM Referred By: Confirmed By: Danial Michel
--- NOTE | 2024-06-28 15:11 | DS.PCM_ITS ---
Providers Date of Admission: 06/28/24 Primary Care Physician: Dr. Conrad Arroyo MD Consultations 06/28/24 01:07 neuro [Consult: Tele-Neurology] Routine Consulting Provider: [facility] Reason for Consult: AMS after Keppra. EMERGENT Consult: No MD Notified: Yes Date Notified: 06/28/24 Time Notified: 01:07 Method of Notification: Answering Service Method of Consult:: Telemedicine Comments:: Dr Chadwick direct support professional home health 06/28 Nursing Unit Staff Notify [facility] of Tele-Neurology Consult: Yes Reason For Visit: CONFUSION AFTER KEPPRA Diagnosis Discharge Diagnosis (1) Adverse drug reaction: Status: Acute Code(s): T50.905A - Adverse effect of unspecified drugs, medicaments and biological substances, initial encounter Qualifiers: Encounter type: initial encounter Qualified Code(s): T50.905A - Adverse effect of unspecified drugs, medicaments and biological substances, initial encounter (2) History of seizures: Status: Acute Code(s): Z87.898 - Personal history of other specified conditions (3) History of ischemic left MCA stroke: Status: Acute Code(s): Z86.73 - Personal history of transient ischemic attack (TIA), and cerebral infarction without residual deficits (4) Polypharmacy: Status: Acute Code(s): Z79.899 - Other [facility]iary (current) drug therapy (5) Pneumonia: Status: Acute Code(s): J18.9 - Pneumonia, unspecified organism Qualifiers: Pneumonia type: due to unspecified organism Laterality: right Lung location: lower lobe of lung Qualified Code(s): J18.9 - Pneumonia, unspecified organism Plan Encephalopathy * likely toxic. Recently started on levetiracetam for absence seizures but also take baclofen, buspirone, escitalopram, lorazepam. (Reviewed [facility], pt receives routine lorazepam, no norco Rx since July 2023). Likely a combination of all these medications plus his h/o hemorrhagic CVA. * Hold potentiating medications at this time. * Cannot rule out underlying seizures. * Patient has limited mental capacity at baseline. This is likely after his stroke. Seizure d/o * apparently a new diagnosis and had been started on levetiracetam 3-days prior to presentation. Currently held given the confusion. * Neuro consult * Request records from [facility] Medicine/Dr. Bennett (unable to pull up info through [employer] as it is non-function at this time). * EEG per neurology was normal * Neurology recommeded Vimpat, however, pt has a 1st degree AVB with a WI interval of 232. So she recommended Onfi 5mg for 1 week then 10 mg QHS. As well as cutting back on the Keppra. 250 BID for 1 week, then daily for 1 week, then stop. * Follow up with neurology as outpt. Pt's would like to follow up with [facility] neurology at this time. Pneumonia * suspect pneumococcal * CXR appears worse from the despite being on doxycycline * DC with levofloxacin. Chronic conditions: * HTN: continue amlodipine, losartan, * HLP: continue atorvastatin * anemia: continue ferrous sulfate * afib: metoprolol, amiodarone. Anticoagulated with apixaban. Medications at Discharge Home Medications famotidine 20 mg tablet 20 mg PO QHS PRN PRN Gastric Reflux 12/21/16 baclofen 10 mg tablet 5 mg (1/2 x 10 mg) PO TID 02/05/17 multivitamin,[id number] (Complete Multivitamin tablet) 1 tab PO DAILY vitamin 12/04/18 potassium chloride 10 mEq tablet,extended release 20 meq (2 x 10 mEq) PO TID potassium #90 tabs 04/19/20 ezetimibe 10 mg tablet 10 mg PO DAILY 04/22/21 escitalopram oxalate 20 mg tablet 20 mg PO DAILY antidepressant 06/11/21 menthol 0.44 %-zinc oxide 20.6 % topical ointment (Calmoseptine) 1 applic topical TID PRN Diaper Rash #0 grams 06/17/21 amiodarone 100 mg tablet 100 mg PO DAILY HEART 07/11/21 albuterol sulfate 90 mcg/actuation aerosol inhaler (Ventolin HFA) 2 inh inhalation Q4H PRN shortness of breath or wheezing #18 grams 05/29/22 trazodone 50 mg tablet 100 mg PO QHS DEPRESSION 08/16/22 miconazole nitrate 2 % topical cream 1 applic topical BID 14 days #15 grams 08/17/22 amlodipine 5 mg tablet 5 mg PO BID 11/11/22 apixaban 5 mg tablet (Eliquis) 5 mg PO BID 11/11/22 tiotropium 2.5 mcg-olodaterol 2.5 mcg/actuation mist for inhalation (Stiolto Respimat) 2 puff inhalation DAILY 05/29/23 albuterol sulfate 2.5 mg/3 mL (0.083 %) solution for nebulization 2.5 mg continuous nebulization Q6H PRN shortness of breath or wheezing 08/02/23 atorvastatin 40 mg tablet 40 mg PO DAILY 08/02/23 ferrous sulfate 325 mg (65 mg iron) tablet (FeroSul) 325 mg PO BID 08/02/23 losartan 25 mg tablet 25 mg PO DAILY 08/02/23 metoprolol tartrate 25 mg tablet 12.5 mg PO BID 08/02/23 fluticasone propionate 50 mcg/actuation nasal spray,suspension (Flonase Allergy Relief) 2 spray intranasal DAILY #16 grams 12/02/23 buspirone 15 mg tablet 15 mg PO TID 04/08/24 lorazepam 1 mg tablet (Ativan) 1 - 2 mg PO Q8H PRN agitation 04/08/24 hydrocodone-acetaminophen 5-325mg 5mg-325mg 1 - 2 tab PO Q6H PRN PRN pain 06/27/24 amoxicillin 875 mg-potassium clavulanate 125 mg tablet 1 tab PO BID #10 tabs 06/28/24 clobazam 10 mg tablet (Onfi) 10 mg PO QHS #30 tabs 06/28/24 levetiracetam 250 mg tablet 250 mg PO BID #21 tabs 06/28/24 Hospital Course Operations None Procedures Electroencephalogram Summary of Care Provided Minutes Spent on Discharge: 40 Weight / BMI Weight Weight: 90.4 kg Body Mass Index (BMI) 28.5 ABG / Lab / Microbiology Data 06/28/24 04:36 06/28/24 04:36 Laboratory: Laboratory Results - last 24 hr 06/27/24 21:50: WBC 9.2, RBC 4.38 L, Hgb 13.5, Hct 40.6, MCV 92.7, MCH 30.8, MCHC 33.3, RDW Std Deviation 42.7, RDW Coeff of Makayla 12.5, Plt Count 218, MPV 11.2, Immature Gran % (Auto) 1.200 H, Neut % (Auto) 58.3, Lymph % (Auto) 22.4, M lopez % (Auto) 10.1 H, Eos % (Auto) 7.0 H, Baso % (Auto) 1.0, Absolute Neuts (auto) 5.4, Absolute Lymphs (auto) 2.05, Nucleated RBC % 0, PT 14.0, INR 1.1, APTT 29.0, Sodium 144, Potassium 4.0, Chloride 112 H, Carbon Dioxide 28.0, Anion Gap 4 L, BUN 17, Creatinine 1.19, Estim Creat Clear Calc 67.19, Est GFR (MDRD) Af Amer 78, Est GFR (MDRD) Non-Af 64, BUN/Creatinine Ratio 14.3, Glucose 127 H, Calcium 8.9 06/27/24 22:27: Urine Color Yellow, Urine Clarity Clear, Urine pH 6.0, Ur Specific [place] 1.020, Urine Protein 30 H, Urine Glucose (UA) Normal, Urine Ketones Negative, Urine Occult Blood Negative, Urine Nitrite Negative, Urine Bilirubin Negative, Urine Urobilinogen Normal, Ur Leukocyte Esterase 500 H, Urine RBC 0 SEEN, Urine WBC 0-5 SEEN, Ur Squamous Epith Cells 0 SEEN, Urine Bacteria 0 SEEN, Urine Mucus 0 SEEN, Urine Yeast RARE, Urine Opiates Screen NEGATIVE, Urine Methadone Screen NEGATIVE, Ur Barbiturates Screen NEGATIVE, Ur Phencyclidine Scrn NEGATIVE, Ur Amphetamines Screen NEGATIVE, MDMA (Ecstasy) Screen POSITIVE H, U Benzodiazepines Scrn NEGATIVE, Urine Cocaine Screen NEGATIVE, U Cannabinoids Screen POSITIVE H, Ur Drug Screen Comment 06/28/24 04:36: WBC 9.2, RBC 4.02 L, Hgb 12.6 L, Hct 37.8 L, MCV 94.0, MCH 31.3, MCHC 33.3, RDW Std Deviation 43.2, RDW Coeff of Makayla 12.6, Plt Count 216, MPV 11.5, Immature Gran % (Auto) 1.600 H, Neut % (Auto) 55.7, Lymph % (Auto) 22.0, M lopez % (Auto) 11.5 H, Eos % (Auto) 8.3 H, Baso % (Auto) 0.9, Absolute Neuts (auto) 5.1, Absolute Lymphs (auto) 2.02, Nucleated RBC % 0, Sodium 144, Potassium 3.8, Chloride 112 H, Carbon Dioxide 27.0, Anion Gap 5, BUN 15, Creatinine 1.06, Estim Creat Clear Calc 75.43, Est GFR (MDRD) Af Amer 89, Est GFR (MDRD) Non-Af 74, BUN/Creatinine Ratio 14.2, Glucose 123 H, Hemoglobin A1c 5.0, Calcium 8.5, Phosphorus 3.4, Magnesium 2.1, Total Bilirubin 0.50, AST 15, ALT 18, Alkaline Phosphatase 102, Total Protein 6.3 L, Albumin 3.0 L, Globulin 3.3, Albumin/Globulin Ratio 0.9, Triglycerides 205 H, Cholesterol 128, LDL Cholesterol 49, VLDL Cholesterol 41 H, HDL Cholesterol 38 L, Folate 13.60 Microbiology: Microbiology 06/27/24 22:27 Urine, Clean Catch Legionella Antigen - Final 06/27/24 22:27 Urine, Clean Catch Streptococcus pneumoniae Antigen (M - Final Radiography Diagnostic Testing: Radiology Impression Brain CT 06/27/24 21:53 IMPRESSION: Chronic changes of the brain. No acute intracranial pathology. Electronically Signed: Jonel Soto DO at 22:47 EST , Chest X-Ray 06/27/24 22:04 IMPRESSION: Central pulmonary vascular prominence. Prominent right basilar interstitial markings and mild infiltrate. Electronically Signed: Jonel Soto DO at 23:53 EST , D/C Instructions Discharge Diet: No restrictions DC O2, CPAP, BIPAP Needs Additional Home O2 Discharge instructions: No DC home with Oxygen: No Meaningful Use Info Meaningful Use Meaningful Use Diagnoses (Choose all that apply): None applicable Ischemic Stroke Statin Dosing Therapy Reference: STATIN DOSE THERAPY REFERENCE: * Patients > 75 years receive moderate or high dose statin therapy. * Patients 75 years or YOUNGER should receive HIGH intensity statin dose unless contraindicated. You will be required to document reason for non-treatment if statin daily dose does not meet guidelines. HIGH DOSE STATIN THERAPY DAILY Atorvastatin > than or = to 40 mg Rosuvastatin > than or = to 20 mg Amlodipine + Atorvastatin > than or = to 2.5/40 mg Ezetimibe + Simvastatin 10/80 mg Simvastatin 80mg Discharge Plan Admission Admit Date/Time: 06/28/24 00:53 Primary Reason for Your Visit: confusion Attending Provider: Dov Marin Primary Care Provider: Conrad Arroyo Consulting Providers: Bhavik Kaplan; Kaveh Horton; Sharonda Velarde; Sue Villalba; Taina Arguelles; Samuel Fernandez; Kelly Hayward; Abdiel Brothers; Bobby Tobias; Dave Berry; Anel Devries; Bowen Rivera; Leta Luciano; Deejay Patel; Katelyn Wheat Patrick; Shad Larry; Turner Borjas; Hay Nathan; Jayla Guo; Delmy Reyes; Mic Rodriguez; Taylor Sherwood; Mariano Pena; Aleksandr Raygoza; TOM GIVENS; Abel Galvin; Adwoa Mendez Instructions Additional Instructions / Restrictions: Mr. Bhat with be discharged with Keppra 250mg twice daily for 1 week, then daily for 1 week, then stop. Additionally, he will be on Onfi (not Vimpat) 5mg at night for 1 week, then 10mg at night. Please follow up with neurology. Discharge Orders/Prescriptions Prescriptions: New levetiracetam 250 mg tablet 250 mg PO BID Qty: 21 0RF Rx Instructions: 2 times daily for 1 week, then daily for 1 week, then stop. clobazam [Onfi] 10 mg tablet 10 mg PO QHS Qty: 30 0RF Rx Instructions: 1/2 tablet (5mg) at night for 1 week, then 1 tablet at night. amoxicillin-pot clavulanate 875-125 mg tablet 1 tab PO BID Qty: 10 0RF Continued Complete Multivitamin tablet 1 tab PO DAILY potassium chloride 10 mEq tablet extended release 20 meq PO TID Qty: 90 12RF albuterol sulfate [Ventolin HFA] 90 mcg/actuation HFA aerosol inhaler 2 inh inhalation Q4H PRN (Reason: shortness of breath or wheezing) Qty: 18 6RF Stiolto Respimat 2.5-2.5 mcg/actuation mist 2 puff inhalation DAILY famotidine 20 MG tablet 20 mg PO QHS PRN PRN (Reason: Gastric Reflux) Patient Comments: reduce acid baclofen 10 MG tablet 5 mg PO TID 0RF Patient Comments: muscle relaxant ezetimibe 10 mg tablet 10 mg PO DAILY Patient Comments: TAKE 1 TABLET BY MOUTH ONCE DAILY escitalopram oxalate 20 mg Tablet 20 mg PO DAILY menthol-zinc oxide [Calmoseptine] 0.44-20.6 % Ointment 1 applic topical TID PRN (Reason: Diaper Rash) Qty: 0 0RF Protocol: *Topical Application Instructions APPLICATION INSTRUCTIONS: scrotum/luci-rectal area prn amiodarone 100 mg tablet 100 mg PO DAILY Patient Comments: TAKE 1 TABLET BY MOUTH ONCE DAILY. DO NOT TAKE IF HEART RATE IS LESS THAN 40. trazodone 50 mg tablet 100 mg PO QHS Patient Comments: take 1 tablet by mouth at bedtime miconazole nitrate 2 % Cream 1 applic topical BID 14 Days Qty: 15 0RF Protocol: *Topical Application Instructions APPLICATION INSTRUCTIONS: Apply to erythema on glans of penis BID amlodipine 5 mg Tablet 5 mg PO BID Eliquis 5 mg tablet 5 mg PO BID Patient Comments: TAKE ONE (1) TABLET BY MOUTH TWICE DAILY albuterol sulfate 2.5 mg /3 mL (0.083 %) solution for nebulization 2.5 mg continuous nebulization Q6H PRN (Reason: shortness of breath or wheezing) Patient Comments: INHALE 1 VIAL VIA NEBULIZER EVERY 4 HOURS NEEDED FOR WHEEZING OR SHORTNESS OF BREATH *USE OVER 5-15 MINUTES* losartan 25 mg tablet 25 mg PO DAILY Patient Comments: take 1 tablet by mouth once daily atorvastatin 40 mg tablet 40 mg PO DAILY Patient Comments: TAKE 1 TABLET BY MOUTH ONCE DAILY metoprolol tartrate 25 mg tablet 12.5 mg PO BID Rx Instructions: hold if heart rate is less than 60 hydrocodone-acetaminophen 5-325 mg tablet 1 - 2 tab PO Q6H PRN PRN (Reason: pain) lorazepam [Ativan] 1 mg tablet 1 - 2 mg PO Q8H PRN (Reason: agitation) buspirone 15 mg tablet 15 mg PO TID fluticasone propionate [Flonase Allergy Relief] 50 mcg/actuation spray,suspension 2 spray INTRANASAL DAILY Qty: 16 6RF Discontinued doxycycline hyclate 100 mg capsule 100 mg PO BID 7 Days Qty: 14 0RF No Action ferrous sulfate [FeroSul] 325 mg (65 mg iron) tablet 325 mg PO BID Patient Comments: take 1 tablet by mouth once daily Referrals / Follow Up: [facility] [Provider Group] - Within 1 Month Conrad Arroyo MD [Primary Care Provider] - Within 2 Weeks Disposition Disposition (needs filled in before D/C Order can be placed): Home, Self Care Charges/Coding Visit Charges Inpatient E&M: 78670 Disch Hosp >30min
[2024-06-29 08:17] LABS: Vitamin B12 425 pg/mL (211-911)
== END 2024-06-28 15:24 | disposition home or self-care (01) ==
LOC: ED 06-28 00:07 → PCU 06-28 04:47
PROVIDERS: Admitting Provider Internal Medicine; Emergency Provider Emergency Medicine; PCP Family Medicine
DX: G93.40 Encephalopathy, unspecified (principal); I69.351 Hemiplegia and hemiparesis following cerebral infarction affecting right dominant side; I48.91 Unspecified atrial fibrillation; J18.9 Pneumonia, unspecified organism; R41.0 Disorientation, unspecified; I25.10 Atherosclerotic heart disease of native coronary artery without angina pectoris; T42.6X5A Adverse effect of other antiepileptic and sedative-hypnotic drugs, initial encounter; D64.9 Anemia, unspecified; E66.3 Overweight; Z79.899 Other long term (current) drug therapy; Z68.28 Body mass index [BMI] 28.0-28.9, adult; G47.31 Primary central sleep apnea; E78.5 Hyperlipidemia, unspecified; Z87.891 Personal history of nicotine dependence; I10 Essential (primary) hypertension; R09.02 Hypoxemia; R47.01 Aphasia; I44.0 Atrioventricular block, first degree; I69.392 Facial weakness following cerebral infarction; I69.320 Aphasia following cerebral infarction; Z91.199 Patient's noncompliance with other medical treatment and regimen due to unspecified reason; F32.A Depression, unspecified; F41.9 Anxiety disorder, unspecified
CPT/HCPCS: 36415; 70450; 71045; 80048; 80053; 80061; 80307; 81001; 82607; 82746; 83036; 83735; 84100; 85025; 85610; 85730; 87086; 87449; 92610; 93005; 94640; 95819; 96365; 97162; 97166; 99221; 99285; J7030; J7040; A4216; G0378

== ENCOUNTER 2024-07-06 14:00 | Outpatient (RCR) | payer MEDICARE, MEDICAID, SELFPAY ==
--- NOTE | 2024-08-21 09:47 | HP.SP.DC ---
ST Discharge Summary Discharged: Discharge: Pt was seen for initial speech/language/cognitive evaluation at [facility] on 11/18/23 secondary to dx of cva and dysphagia. Pt attended 14 sessions from initial evaluation targeting total communication, answering y/n questions, following 1-2 step directions, and diet tolerance. Pt being discharged from speech therapy caseload on this date, 08/21/24, secondary to additional therapy sessions not being scheduled after last session. Thank you for allowing me to participate the care of your Pt. Will reevaluate at Pt?s request following script from physician.
== END 2024-07-06 19:00 | disposition home or self-care (01) ==
LOC: SP 14:00
PROVIDERS: PCP Family Medicine; Referring Provider Orthopaedic Surgery Sports Medicine; Visit Provider Orthopaedic Surgery Sports Medicine
DX: S82.899D Other fracture of unspecified lower leg, subsequent encounter for closed fracture with routine healing (principal); R13.10 Dysphagia, unspecified; I63.132 Cerebral infarction due to embolism of left carotid artery; G81.91 Hemiplegia, unspecified affecting right dominant side; R47.02 Dysphasia; I69.320 Aphasia following cerebral infarction
CPT/HCPCS: 92507

== ENCOUNTER 2025-03-15 21:35 | Emergency (ER) | payer MEDICARE, MEDICAID, SELFPAY ==
[2025-03-15 21:35] VITALS: BP 138/67; PULSE 114; RESP 18; TEMP 36.7; O2SAT 95
[2025-03-15 22:20] VITALS: BP 120/86; PULSE 90; RESP 18; TEMP 36.7; O2SAT 92; O2SAT 94; BMI 30.4
--- OUTSIDE RECORDS SUMMARY | 2025-03-15 22:24 | XMS RPT_ITS | CCD ---
Author Organization [facility] Care Team Providers Care Algorithm Developer Name Role Phone KAREEM SALDANA Attending Unavailable KAREEM SALDANA Referring Unavailable AL-ALI, FIRAS Admitting Unavailable AL-ALI, MAGGY Attending Unavailable Jaci Arroyo Primary Care Unavailable AL-ALI, FIRAS Admitting Unavailable AL-ALI, MAGGY Attending Unavailable Jaci Arroyo Primary Care Unavailable LISA NAYLOR Attending Unavailable Jaci Arroyo Referring Unavailable Jaci Arroyo Primary Care Unavailable DAVID AVILA Attending Unavailable Jaci Arroyo Referring Unavailable Jaci Arroyo Primary Care Unavailable DAVID AVILA Attending Unavailable Jaci Arroyo Referring Unavailable Jaci Arroyo Primary Care Unavailable Jaci Arroyo MD Primary Care Provider Robin Johansen MD Unavailable Espinoza Kimbrough MD Unavailable David Avila MD Unavailable Dr. Jaci Arroyo Primary Care Provider Dr. Jodi Brink Attending Provider Dr. Ree Dave Referring Provider Dr. Shad Andrews Emergency Provider Dr. Ree Dave Admit Provider Dr. Jaci Goncalves Attending Provider Dr. Jaci Goncalves Other Provider Dr. Enrrique Niño Attending Provider Dr. Enrrique Niño Other Provider Dr. Jaci Arroyo Referring Provider Dr. Doug Mcgrath Attending Provider Dr. Doug Mcgrath Referring Provider Dr. Doug Mcgrath Other Provider Jaci Arroyo MD Primary Care Provider Robin Johansen MD Unavailable Espinoza Kimbrough MD Unavailable David Avila MD Unavailable Jaci Arroyo MD Primary Care Provider Dr. Jaci Arroyo Primary Care Provider Dr. Jaci Arroyo Referring Provider Dr. Doug Mcgrath Attending Provider Rio FOIL WRAPPER, FOIL WRAPPER-C Soraya Referring Provider Rio DE, FOIL WRAPPER-C Soraya Other Provider Jaci Arroyo MD Primary Care Provider Robin Johansen MD Unavailable Espinoza Kimbrough MD Unavailable David Avila MD Unavailable Dr. Carlton Lin Emergency Provider Dr. Felecia Burns Admit Provider Dr. Felecia Burns Attending Provider Dr. Felecia Burns Other Provider Dr. Jaci Arroyo Primary Care Provider Dr. Carlton Lin Emergency Provider Dr. Felecia Burns Admit Provider Dr. Felecia Burns Attending Provider Dr. Felecia Burns Other Provider Dr. Jaci Arroyo Referring Provider Rio FOIL WRAPPER, FOIL WRAPPER-C Soraya Attending Provider Jose Maria FOIL WRAPPER, FOIL WRAPPER-C Kassandra Attending Provider Dr. Matt Almanza Attending Provider [phone] Boris, Dr. Arti Hardy Admit Provider Korwilfredo, Dr. Arti Hardy Other Provider Baldo, Dr. Maynard Attending Provider Dr. Felecia Burns Referring Provider CRUZ WHITMAN, DR BEATTY Primary Care Physician [phone] Dr. Jaci Arroyo Primary Care Provider Jose Maria FOIL WRAPPER, FOIL WRAPPER-C Kassandra Attending Provider Elvis Ashraf, Dr. Gutierrez Attending Provider [phone] SASHA NEAL Attending Unavailable CRUZ, JACI Pappas Primary Care Unavailable JORGE CARDOSO Referring Unavailable REMEDIOS HO, DR WEBB Referring Unavailable KENNEN BUILDING EQUIPMENT INSPECTOR-OPERATIONS LABEL CLERK, KYLIE Hart Attending Unavai mykel RIVERA BUILDING EQUIPMENT INSPECTOR-OPERATIONS LABEL CLERK, ALETA M Admitting Unavail cora ARROYO MD, DR BEATTY Primary Care Unavailab le WILLIAM BUILDING EQUIPMENT INSPECTOR-OPERATIONS LABEL CLERK, KYLIE Hart Admitting Unavanacho VIEIRA MD, KRISTEL Referring Unavailable ISHA WHITMAN, KRISTEL Attending Katharina ARROYO MD, DR BEATTY Primary Care Unavailab uma AVALOS MD, MATTHEW Linares Attending Unavail cora ARROYO MD, DR BEATTY Primary Care Unavailab uma HOPKINS MD, MARIANO Sage Attending Katharina ARROYO MD, DR BEATTY Primary Care Unavailab Dr. Jaci Leggett Primary Care Provider Dr. Jaci Arroyo Referring Provider Rio FOIL WRAPPER, FOIL WRAPPER-C Soraya Attending Provider [phone] MD Davin Kim Attending Provider MD Davin Kim Referring Provider MD Davin Kim Other Provider MD Davin Kim Admit Provider Dr. Felecia Burns Attending Provider Dr. Felecia Burns Other Provider Dr. Dov Marin Other Provider Dr. Dov Marin Attending Provider Dr. Jaci Arroyo Primary Care Provider Dr. Jaci Arroyo Referring Provider Dr. Aleyda Bland Attending Provider MD Davin Kim Referring Provider Jose Maria FOIL WRAPPER, FOIL WRAPPER-C Kassandra Attending Provider Dr. Matt Ashraf Attending Provider Dr. Lion Randhawa Attending Provider Jaci Arroyo MD Primary Care Provider GLORIA SAWYER Attending Unavailable DANIA AJ JR Referring Unavailable JACI ARROYO Primary Care Unavailable Tannparadise BUILDING EQUIPMENT INSPECTOR.Jessie SORIA Unavailable Karuna BUILDING EQUIPMENT INSPECTOR.Mariano SORIA Unavailable Dov Marin Attending Unavailable Bhavik Kaplan Consulting Unavailable Jaci Arroyo Primary Care Unavailable Robin Rodriguez Admitting Unavailable Adethaddeus, Amishruti Consulting Unavailable Hinduzoe, Sharonda Consulting Unavailable Sue Villalba Consulting Unavailable Zha, Taina Consulting Unavailable Jim, Samuel Consulting Unavailable Kelly Hayward Consulting Unavailable Abdiel Brothers Consulting Unavailable Zenaida Tobias Consulting Unavailable Dave Berry Consulting Unavailable Anel Devries Consulting Unavailable Bowen Rivera Consulting Unavailable Leta Luciano Consulting Unavailable Ridhenrique, Mohmikel Consulting Unavailable Zakarlosh, Mhd Patrick Consulting UnavailShad Hull Consulting Unavailable Borjas, Rami Consulting Unavailable Hay Nathan Consulting Unavailable Jayla Guo Consulting Unavailable Delmy Reyes Consulting Unavailable Robin Rodriguez Consulting Unavailable Consuelo Sherwood Consulting Unavailable Mariano Pena Consulting Unavailable Aleksandr Raygoza Consulting Unavailable TOM GIEVNS Consulting Unavailable Abel Galvin Consulting Unavailable Adwoa Mendez Consulting Unavailable Jaci Arroyo Primary Care Unavailable Oleghe OLS, Efewongbe Attending Unavailabl e Oleghe OLS, Efewongbe Attending Unavailabl e Elderbrock, Jaci Primary Care Unavailable Dania Aj Referring Unavailable Elderbrock, Jaci Primary Care Unavailable Dania Aj Attending Unavailable Elderbrock, Jaci Primary Care Unavailable Mollison, Davin Referring Unavailable Mollison, Davin Attending Unavailable Oleghe OLS, Efewongbe Attending Unavailabl e Oleghe OLS, Efewongbe Referring Unavailabl e Elderbrock, Jaci Primary Care Unavailable Elderbrock, Jaci Primary Care Unavailable Elderbrock, Jaci Attending Unavailable Hortensia Dena Referring Unavailable Elderbrock, Jaci Primary Care Unavailable Hortensia Dena Attending Unavailable Elderbrock, Jaci Primary Care Unavailable Elderbrock, Jaci Referring Unavailable Mollison, Davin Attending Unavailable Elderbrock, Jaci Referring Unavailable Elderbrock, Jaci Primary Care Unavailable Sushmaison, Davin Attending Unavailable Kimo Mcgrath Referring Unavailable Elderbrock, Jaic Primary Care Unavailable Kimo Mcgrath Attending Unavailable Elderbrock, Jaci Primary Care Unavailable Roosevelt Torre Attending Unavailable Elderbrock, Jaci Primary Care Unavailable Lion Randhawa Attending Unavailable SydneeBoni espinosaril Attending Unavailable Elderbrock, Jaci Primary Care Unavailable Elderbrock, Jaci Primary Care Unavailable Elderbrock, Jaci Referring Unavailable Mollison, Davin Attending Unavailable Sydnee, Lion Attending Unavailable Elderbrock, Jaci Primary Care Unavailable Lissa Michel Attending Unavailable Elderbrock, Jaci Primary Care Unavailable Lissa Michel Referring Unavailable Bhavik Kaplan Consulting Unavailable Elderbrock, Jaci Primary Care Unavailable Robin Rodriguez Admitting Unavailable Robin Rodriguez Attending Unavailable Adeli, Amir Consulting Unavailable Hinduja, Sharonda Consulting Unavailable Deejay, Sue Consulting Unavailable Zha, Taina Consulting Unavailable Jim, Samuel Consulting Unavailable Yesy, Kelly Consulting Unavailable Bittar Abdiel Consulting Unavailable Zenaida Tobias Consulting Unavailable Dave Berry Consulting Unavailable Anel Devries Consulting Unavailable Bowen Rivera Consulting Unavailable Leta Luciano Consulting Unavailable Deejay Patel Consulting Unavailable Katelyn Wheat Consulting UnavailShad Hull Consulting Unavailable Turner Borjas Consulting Unavailable Hay Nathan Consulting Unavailable Jayla Guo Consulting Unavailable Delmy Reyes Consulting Unavailable Robin Rodriguez Consulting Unavailable Dov Marin Consulting Unavailable Dov Marin Attending Unavailable Consuelo Sherwood Consulting Unavailable Mariano Pena Consulting Unavailable Aleksandr Raygoza Consulting Unavailable TOM GIVENS Consulting Unavailable Abel Galvin Consulting Unavailable Adwoa Mendez Consulting Unavailable Jaci Arroyo Primary Care Unavailable Jasen Dhillon Attending Unavailable Jaci Arroyo Primary Care Unavailable Davin Kim Referring Unavailable Davin Kim Attending Unavailable Kate De La Cruz Unavailable Unavailable NORA BUILDING EQUIPMENT INSPECTOR-OPERATIONS LABEL CLERK, REGGIE V Admitting Unav ailable NORA BUILDING EQUIPMENT INSPECTOR-ESTELLA, REGGIE V Attending Unav lona ARROYO MD, DR BEATTY Primary Care Unavailab uma DIAL DO, DR WEBB Referring Unavailable KAPPER BUILDING EQUIPMENT INSPECTOR-OPERATIONS LABEL CLERK, RICARDO Yadav Admitting Unavaila prashanth ARROYO MD, DR BEATTY Primary Care Unavailab uma DIAL DO, DR WEBB Attending Unavailable Tannhof BUILDING EQUIPMENT INSPECTOR.OPERATIONS LABEL CLERK, Jessie Unavailable Unavail able Tannhof BUILDING EQUIPMENT INSPECTOR.OPERATIONS LABEL CLERK, Jessie Unavailable Melonie WHITMAN, Phong R Unavailable Tannhof BUILDING EQUIPMENT INSPECTOR.OPERATIONS LABEL CLERK, Jessie Cathy Unavailable JACI ARROYO Primary Care Unavailable JESSIE GARDNER Attending Unavailable MICHELLE WEBB Referring Unavailable JACI ARROYO Primary Care Unavailable ZANA, MEGHANEE Attending Unavailable JACI ARROYO Primary Care Unavailable EARL ELISE Attending Unavailable JACI ARROYO Primary Care Unavailable DEANNE CRUZ Attending Unavailable JACI ARROYO Primary Care Unavailable JESSIE HARMON Attending Unavailabl e ISRAELBROVEDA JACI Shar Primary Care Unavailable TANNJESSIE PABON Attending Unavailabl e ELDERBROCK JACI Shar Primary Care Unavailable MICHELLE WEBB Attending Unavailable JACI ARROYO Primary Care Unavailable TANNJESSIE PABON Referring Unavailabl e ZANA, SHIVANEE Attending Unavailable JACI ARROYO Primary Care Unavailable KIMO MCGRATH Attending Unavailable JACI ARROYO Primary Care Unavailable CONSUELO FAROOQ Attending Unavailable SODWILIAM, SHIVANEE Attending Unavailable JACI ARROYO Primary Care Unavailable JACI ARROYO Primary Care Unavailable SELF Referring Unavailable MICHELLE WEBB Attending Unavailable DENA BAZAN Referring Unavailable JACI ARROYO Primary Care Unavailable ISRAELJACI FOY Attending Unavailable ISRAELJACI FOY Primary Care Unavailable DANIA AJ JR Referring Unavailable ISRAELJACI FOY Primary Care Unavailable ROBIN JOHANSEN Referring Unavailable ROBIN JOHANSEN Attending Unavailable ISRAELJACI FOY Primary Care Unavailable MARIANO BECKMAN Attending Unavailable ISRAELJACI FOY Primary Care Unavailable ISRAELJACI FOY Attending Unavailable ISRAELJACI FOY Primary Care Unavailable ISRAELJACI FOY Primary Care Unavailable JESSIE HARMON Attending Unavailabl e ISRAELJACI FOY Primary Care Unavailable ISRAELJACI FOY Primary Care Unavailable Allergies Allergy Classification Reported Allergen(s) Allergy Type Date of Onset Reaction(s) Facility (20 sources) Azithromycin; Translations: [AZITHROMYCIN] Drug Allergy 9 [facility] Repository (20 sources) Lisinopril; Translations: [LISINOPRIL] Drug Allergy 7 Swelling, Angioedema [facility] Repository (20 sources) SULFATE SALT; Translations: [SULFATE SALT] Propensity to adverse reactions (disorder) 9 [facility] Repository (20 sources) Sulfonamides (Antibiotic); Translations: [SULFA (SULFONAMIDE ANTIBIOTICS)] Allergy to substance 9 [facility] (2 sources) Sulfonamides (Antibiotic); Translations: [sulfa drugs] Drug allergy [facility] (20 sources) Doxycycline; Translations: [DOXYCYCLINE] Drug Allergy 3 GI Upset, Other: See Comments [facility] (2 sources) Sulfonamide; Translations: [sulfa drugs] Drug allergy [facility] Medications Current Medications Medication Drug Class(es) Dates Sig (Normalized) Sig (Original) acetaminophen 325 mg / HYDROcodone bitartrate 5 mg oral tablet (1 source) Opioid Agonist Start: 07-26-2023 End: 07-31-2023 Equality 325- 5 mg oral tablet Dose = 1 tab(s), Oral, q6h, PRN for pain, May take 1-2 tablets / dose, X 5 day(s), # 20 tab(s), 0 Refill(s), Ankle fracture - medial malleolus Fracture of fibula, 86.4 Start Date: 07/26/23 Stop Date: 07/31/23 Status: Ordered Administered Medications Medication Order MAR Action Action Date Dose Rate Site tuberculin skin test, unspecified formulation Given 08/24/2021 (1 source) Administered Medications Medication Order MAR Action Action Date Dose Rate Site tuberculin skin test, unspecified formulation Given 08/24/2021 albuterol 0.83 mg/ml inhalation solution (20 sources) beta2-Adrenergic Agonist Start: 01-14-2025 albuterol (PROVENTIL) 2.5 mg /3 mL (0.083 %) nebulizer solution Indications: Centrilobular emphysema (HCC) Use 3 mL via nebulizer every 6 hours as needed for wheezing/shortness of breath. 360 mL 01/14/2025 Active Start: 09-15-2024 take 0.5 mL by inhal ation four times daily as needed for wheezing albuterol 2.5 mg/0.5 mL (0.5%) inhalation solution Dose : 2.5 mg = 0.5 mL, Inhalation, QID, PRN as needed for wheezing, # 30 EA, 0 Refill(s) Start Date: 09/15/24 Status: Ordered Quantity: 30.0 Unit: EA Repeat number: 1 Start: 07-24-2024 End: 01-14-2025 take 2 puff(s) by inhalation every four hours as needed for wheezing albuterol HFA (PROVENTIL HFA, VENTOLIN HFA) 90 mcg/actuation inhaler Indications: Centrilobular emphysema (HCC) Inhale 2 puffs as instructed every 4 hours as needed for wheezing/shortness of breath. 6.7 g 01/14/2025 Active Start: 02-19-2024 End: 01-14-2025 take 1 dose by inhalation every four hours as needed for wheezing albuterol (PROVENTIL) 2.5 mg /3 mL (0.083 %) nebulizer solution Indications: Centrilobular emphysema (HCC) INHALE 1 VIAL VIA NEBULIZER EVERY 4 HOURS NEEDED FOR WHEEZING/SHORTNESS OF BREATH. USE OVER 5-15 MINUTES 360 mL 02/19/2024 01/14/2025 Discontinued Start: 08-02-2023 Albuterol Sulf ate Active 2.5 MG continuous nebulization EVERY 6 HOURS August 02, 2023:00am Start: 03-22-2023 End: 07-24-2024 take 2 puff(s) by inhalation every four hours as needed albuterol HFA (PROVENTIL HFA, VENTOLIN HFA) 90 mcg/actuation inhaler Indications: Centrilobular emphysema (HCC) Inhale 2 Puffs as instructed every 4 hours as needed. 3 Each 3 07/22/2023 07/24/2024 Discontinued Start: 03-20-2022 End: 02-19-2024 albuterol (PROVENTIL) 2.5 mg /3 mL (0.083 %) nebulizer solution Indications: Centrilobular emphysema (HCC) Use 3 mL via nebulizer every 4 hours as needed for wheezing/shortness of breath. Use over 5-15minutes. 360 mL 3 07/22/2023 02/19/2024 Discontinued Start: 12-19-2021 End: 05-29-2022 Albuterol Sulfate (Ventolin Hfa) 90 mcg/actuation HFA aerosol inhaler Discontinued 2 INH INHALATION Q4H May 29, 2022 11:47am May 29, 2022 12:07pm Start: 08-14-2021 take 1 puff(s) by in halation every six hours Albuterol Sulfate Active 2 PUFF INHALATION EVERY 6 HOURS August 14, 2021 12:15pm Start: 04-27-2021 albuterol (PRO VENTIL) 2.5 mg /3 mL (0.083 %) nebulizer solution Indications: Bacterial pneumonia , COPD with exacerbation (HCC) Use 3 mL via nebulizer every 4 hours as needed for wheezing/shortness of breath. Use over 5-15minutes. 120 mL 2 04/27/2021 Active Start: 07-18-2020 End: 03-12-2023 take 2 puff(s) by inhalation every four hours as needed for wheezing albuterol HFA (PROVENTIL HFA, VENTOLIN HFA) 90 mcg/actuation inhaler Inhale 2 Puffs as instructed every 4 hours as needed for wheezing/shortness of breath. 18 g 5 03/06/2023 03/12/2023 Discontinued Start: 12-17-2019 End: 12-19-2021 take 1 puff(s) by inhalation every six hours Albuterol Sulfate Discontinued 2 PUFF INHALATION EVERY 6 HOURS August 14, 2021 11:15am December 19, 2021 2:34pm Start: 12-21-2016 End: 05-07-2018 take 2.5 mg by inhalation every four hours as needed Albuterol Sulfate Discontinued 2.5 MG INHALATION EVERY 4 HOURS NEEDED December 20, 2016 11:00pm May 07, 2018 12:47pm Comment on above: Inhale 2 Puffs as in structed every 4 hours as needed for Wheezing/Shortness of Breath. Use 3 mL via nebuliz er every 4 hours as needed for wheezing/shortness of breath. Use over 5-15minutes. Inhale 2 Puffs as in structed every 4 hours as needed. Albuterol (Eqv-ProAir HFA) 90 mcg/inh inhalation aerosol (1 source) Start: 023 take 1 dose by inhalation every four hours as needed for wheezing Albuterol (Eqv-ProAir HFA) 90 mcg/inh inhalation aerosol Dose = 2 puff(s), Inhalation, q4h, PRN Shortness of breath or wheezing, INHALE TWO (2) PUFFS BY MOUTH EVERY 4 HOURS NEEDED FOR SHORTNESS OF BREATH OR WHEEZING Start Date: 03/24/23 Status: Ordered amiodarone hydrochloride 100 mg oral tablet (20 sources) Antiarrhythmic Start: 023 End: 025 take 1 tablet by mouth once daily amiodarone (PACERONE) 100 mg tablet Take 1 tablet by mouth once daily. 90 tablet 3 01/14/2025 Active Start: 02-03-2021 End: 02-19-2022 take 1 tablet by mouth once daily amiodarone (PACERONE) 100 mg tablet TAKE 1 TABLET BY MOUTH ONCE DAILY *DO NOT TAKE IF HEART RATE IS LESS THAN 40* 30 tablet 10 01/23/2023 Active Start: 03-12-2019 End: 04-19-2020 take 100 mg by mouth once daily Amiodarone Discontinue d 100 MG PO DAILY October 07, 2019 3:58pm April 19, 2020 1:59pm Hold if heart rate is less than 60 Start: 03-11-2019 End: 03-12-2019 take 200 mg by mouth once daily Amiodarone Discontinue d 200 MG PO DAILY March 10, 2019 11:00pm March 12, 2019 10:16am Comment on above: Take 1 tablet by randolph th once daily. Do not take if heart rate is less than 40 TAKE 1 TABLET BY RANDOLPH TH ONCE DAILY *DO NOT TAKE IF HEART RATE IS LESS THAN 40* amLODIPine 10 mg oral tablet (20 sources) Dihydropyridine Calcium Channel Matilda Start: 01-15-20 take 1 tablet by mouth once daily amLODIPine (NORVASC) 10 mg tablet Indications: Essential hypertension Take 1 tablet by mouth once daily. 90 tablet 3 01/14/2025 Active Start: 09-18-2024 amLODIPine 10 mg oral tablet Dose : 5 mg = 0.5 tab(s), Oral, BID, TAKE 1/2 TABLET BY MOUTH TWICE DAILY, # 30 tab(s), 0 Refill(s) Start Date: 09/18/24 Status: Ordered Quantity: 30.0 Unit: tab(s) Repeat number: 1 Start: 01-23-2023 End: 01-27-2025 take 0.5 tablet by mouth twice daily, then take 0.5 tablet by mouth twice daily amLODIPine (NORVASC) 10 mg tablet Indications: Essential hypertension Take 0.5 tablets by mouth two times a day. Take 1/2 tablet twice daily 30 tablet 5 07/31/2024 01/14/2025 Discontinued Start: 11-18-2022 amLODIPine 10 mg oral tablet Dose : 5 mg = 0.5 tab(s), Oral, qDay, TAKE 1/2 TABLET BY MOUTH TWICE DAILY Start Date: 11/18/22 Status: Ordered Start: 11-11-2022 take 5 mg by mouth twice daily Amlodipine Active 5 MG PO TWICE A DAY November 10, 2022 11:00pm Start: 11-11-2022 take 5 mg by mouth once daily Amlodipine Active 5 MG PO DAILY November 11, 2022 12:00am Start: 02-03-2021 End: 02-19-2022 amLODIPine (NORVASC) 10 mg t ablet Take 1/2 tablet twice daily 90 tablet 3 02/19/2022 Active Start: 12-21-2016 End: 08-17-2022 take 5 mg by mouth twice daily Amlodipine Discontinued 5 MG PO TWICE A DAY April 19, 2020 1:53pm August 17, 2022 3:37pm Comment on above: Take 1/2 tablet twic e daily Take 0.5 tablets by mouth twice daily. Take 1/2 tablet twice daily ampicillin 500 mg oral capsule (2 sources) Penicillin-class Antibacterial Start: 3 End: 3 take 1 capsule by mouth three times daily ampicillin (PRINCIPEN) 500 mg capsule Indications: Enterococcus urinary tract infection Take 1 capsule by mouth three times daily for 7 days. 21 capsule 0 08/21/2022 08/28/2022 Active Comment on above: Take 1 capsule by [facility] three times daily for 7 days. apixaban 5 mg oral tablet (20 sources) Factor Xa Inhibitor Start: 5 take 1 tablet by mouth every twelve hours apixaban (ELIQUIS) 5 mg tab(s) Take 1 tablet by mouth every 12 hours. 180 tablet 3 01/14/2025 Active Start: 11-11-2022 End: 01-14-2025 take 1 tablet by mouth every twelve hours apixaban (ELIQUIS) 5 mg tab(s) take 1 tablet by mouth twice daily 60 tablet 11 12/19/2023 01/14/2025 Discontinued Start: 12-21-2016 End: 02-19-2022 take 5 mg by mouth twice daily Apixaban Discontinued 5 MG PO TWICE A DAY 60 October 07, 2019 3:57pm April 19, 2020 1:59pm Comment on above: TAKE ONE (1) TABLET BY MOUTH TWICE DAILY aspirin 81 mg oral tablet (20 sources) Platelet Aggregation Inhibitor, Nonsteroidal Anti-inflammatory Drug Start: 08-02-2023 take 81 mg by mouth once daily Aspirin Active 81 MG PO DAILY August 02, 2023 12:00am Start: 03-22-2023 End: 06-05-2024 aspirin 81 mg oral delayed r elease tablet Dose : 81 mg = 1 tab(s), Oral, qDay, # 30 tab(s), 0 Refill(s) Start Date: 03/22/23 Status: Ordered Comment on above: Take 81 mg by mouth once daily. atorvastatin 40 mg oral tablet (20 sources) HMG-CoA Reductase Inhibitor Start: 3 End: 5 take 1 tablet by mouth once daily atorvastatin (LIPITOR) 40 mg tablet Take 1 tablet by mouth once daily. 90 tablet 3 01/14/2025 Active Start: 06-25-2016 End: 02-19-2022 take 40 mg by mouth at bedtime Atorvastatin Discontinu ed 40 MG PO AT BEDTIME December 21, 2016 6:33pm October 07, 2019 3:59pm Comment on above: Take 1 tablet by randolph th once daily. TAKE 1 TABLET BY RANDOLPH TH ONCE DAILY baclofen 10 mg oral tablet (20 sources) gamma-Aminobutyric Acid-ergic Agonist Start: 11-18-2022 End: 01-14-2026 take 1 tablet by mouth three times daily baclofen 10 mg tablet Indications: Cervicalgia Take 1 tablet by mouth three times a day. 270 tablet 3 01/14/2025 01/14/2026 Active Start: 10-10-2022 End: 03-31-2024 take 0.5 tablet by mouth three times daily baclofen 10 mg tablet Indications: Cervicalgia TAKE 1/2 TABLET BY MOUTH THREE TIMES A DAY 45 tablet 11 03/25/2023 03/31/2024 Discontinued Start: 03-20-2022 take 0.5 tablet by m outh three times daily baclofen (LIORESAL) 10 mg tablet Indications: Cervicalgia Take 0.5 tablets by mouth three times daily. 45 tablet 5 03/20/2022 Active Start: 05-01-2021 End: 10-16-2021 take 0.5 tablet by mouth three times daily baclofen (LIORESAL) 10 mg tablet Indications: Cervicalgia Take 0.5 tablets by mouth three times daily. 45 tablet 5 10/16/2021 Active Start: 02-05-2017 take 5 mg by mouth t hree times daily Baclofen Active 5 MG PO THREE TIMES A DAY February 04, 2017 11:00pm Comment on above: Take 0.5 tablets by mouth three times daily. TAKE 1/2 TABLET BY M OUTH THREE TIMES A DAY betamethasone 0.5 mg/ml / clotrimazole 10 mg/ml topical cream (20 sources) Azole Antifungal, Corticosteroid Start: 09-15-2024 betamethasone-clotr imazole 0.05%-1% topical cream Apply 1 rigo, Topical, BID, # 15 gram(s), 0 Refill(s), Cream, 89.5 Start Date: 09/15/24 Status: Ordered Quantity: 15.0 Unit: g Repeat number: 1 Start: 01-09-2024 End: 01-14-2025 clotrimazole-betamethasone ( LOTRISONE) cream Apply to affected area two times a day. 45 g 1 01/14/2025 Active Start: 08-16-2022 End: 08-17-2022 Clotrimazole-Betamethasone D iscontinued 1 APPLIC TOPICAL 4 TIMES DAILY August 16, 2022 12:00am August 17, 2022 3:37pm Start: 01-24-2022 End: 09-10-2022 clotrimazole-betamethasone ( LOTRISONE) cream Apply to affected area twice daily. 30 g 1 01/24/2022 09/10/2022 Discontinued Start: 01-20-2021 End: 01-24-2022 clotrimazole-betamethasone ( LOTRISONE) cream Apply to affected area twice daily. 45 g 1 01/20/2021 01/24/2022 Discontinued Comment on above: Apply to affected ar ea twice daily. Blood Pressure Monitor kit (20 sources) Start: 04-15-2018 Blood Pressure Monitor kit 1 application twice daily. Measure patient for correct size. Patient needs cuff for left arm readings. 1 Kit 04/15/2018 Active Start: 04-15-2018 Blood Pressure Monitor kit 1 application twice daily. Measure patient for correct size. Patient needs cuff for left arm readings. 1 Kit 0 04/15/2018 Active Start: 10-15-2016 End: 02-24-2024 Blood Pressure Monitor kit 1 Kit once daily. Please measure patient for correct size. 1 Kit 0 10/15/2016 02/24/2024 Discontinued (Course of therapy completed) Start: 10-15-2016 Blood Pressure Monitor kit 1 Kit once daily. Please measure patient for correct size. 1 Kit 0 10/15/2016 Active Comment on above: [address] ease measure patient for correct size. 1 application twice daily. Measure patient for correct size. Patient needs cuff for left arm readings. busPIRone hydrochloride 15 mg oral tablet (20 sources) Start: End: take 1 tablet by mouth three times daily busPIRone (BUSPAR) 15 mg tablet Take 1 tablet by mouth three times a day. 270 tablet 3 01/14/2025 Active Start: 03-20-2022 End: 10-01-2023 take 10 mg by mouth three times daily Buspirone Active 10 MG PO THREE TIMES A DAY August 16, 2022 12:00am Start: 09-04-2021 take 1 tablet by randolph th three times daily busPIRone (BUSPAR) 10 mg tablet Take 1 tablet by mouth three times daily. 90 tablet 2 09/04/2021 Active Comment on above: Take 1 tablet by randolph th three times daily. Take 1 tablet by randolph three times a day. cephalexin 500 mg oral capsule (15 sources) Cephalosporin Antibacterial Start: End: take 1 capsule by mouth three times daily cephALEXin (KEFLEX) 500 mg capsule Take 1 capsule by mouth three times daily for 14 days. 42 capsule 0 10/15/2022 10/29/2022 Active Start: 09-12-2022 End: 10-15-2022 take 1 capsule by mouth four times daily cephALEXin (KEFLEX) 500 mg capsule Take 1 capsule by mouth four times daily. 28 capsule 0 09/12/2022 10/15/2022 Discontinued Comment on above: Take 1 capsule by mo ut four times daily. Take 1 capsule by mo uth three times daily for 14 days. cetirizine hydrochloride 10 mg oral tablet (13 sources) Histamine-1 Receptor Antagonist Start: 025 End: take 1 tablet by mouth once daily cetirizine (ZYRTEC) 10 mg tablet Indications: Acute cough Take 1 tablet by mouth once daily. 90 tablet 3 01/14/2025 Active 12 hr dextromethorphan polistirex 6 mg/ml extended release suspension (3 sources) Uncompetitive X-qblpyl-H-aspartate Receptor Antagonist, Sigma-1 Agonist Start: 021 take 1 mL by mouth every twelve hours Dextromethorphan Polistirex (Delsym 12 Hour) 30 mg/5 mL suspension,extended rel 12 hr Active 10 ML PO Q12H 89 July 12, 2021 12:00am doxycycline hyclate 100 mg oral tablet (19 sources) Tetracycline-class Drug Start: 023 End: 023 take 1 tablet by mouth twice daily doxycycline (VIBRA-TABS) 100 mg tablet Take 1 tablet by mouth twice daily for 10 days. 20 tablet 0 12/10/2022 12/20/2022 Active Start: 11-15-2022 End: 05-29-2023 take 100 mg by mouth twice daily Doxycycline Monohydrate Discontinued 100 MG PO TWICE A DAY 13 November 14, 2022 11:00pm May 29, 2023 12:18pm Start: 06-10-2021 End: 06-17-2021 take 100 mg by mouth twice daily Doxycycline Hyclate Discontinued 100 MG PO TWICE A DAY June 09, 2021 11:00pm June 17, 2021 3:47pm Comment on above: Take 1 tablet by randolph th twice daily for 10 days. escitalopram 20 mg oral tablet (20 sources) Serotonin Reuptake Inhibitor Start: 3 End: 5 take 1 tablet by mouth once daily escitalopram oxalate (LEXAPRO) 20 mg tablet Indications: Anxiety Take 1 tablet by mouth once daily. 90 tablet 3 01/14/2025 Active Start: 02-03-2021 End: 02-19-2022 take 1 tablet by mouth once daily escitalopram oxalate (LEXAPRO) 20 mg tablet Indications: Anxiety TAKE 1 TABLET BY MOUTH ONCE DAILY 30 tablet 10 01/23/2023 Active Comment on above: Take 1 tablet by randolph th once daily. TAKE 1 TABLET BY RANDOLPH TH ONCE DAILY ezetimibe 10 mg oral tablet (20 sources) Dietary Cholesterol Absorption Inhibitor Start: 1 End: 5 take 1 tablet by mouth once daily ezetimibe (ZETIA) 10 mg tablet Indications: Hyperlipidemia, unspecified hyperlipidemia type Take 1 tablet by mouth once daily. 90 tablet 3 01/14/2025 Active Comment on above: Take 1 tablet by randolph th once daily. famotidine 20 mg oral tablet (20 sources) Histamine-2 Receptor Antagonist Start: 7 End: 5 take 1 tablet by mouth once daily famotidine (PEPCID) 20 mg tablet Take 1 tablet by mouth once daily. 90 tablet 3 01/14/2025 Active Comment on above: Take 1 tablet by randolph th at bedtime as needed. TAKE 1 TABLET BY RADNOLPH TH AT BEDTIME NEEDED FeroSul 325 mg (65 mg elemental iron) oral tablet (1 source) Start: FeroSul 325 mg (65 mg elemental iron) oral tablet Dose : 325 mg = 1 tab(s), Oral, BID, # 1,000 tab(s), 0 Refill(s) Start Date: 09/15/24 Status: Ordered Quantity: 1000.0 Unit: tab(s) Repeat number: 1 ferrous sulfate 325 mg oral tablet (20 sources) Start: take 1 tablet by mouth once daily ferrous sulfate 325 mg (65 mg iron) tablet Take 1 tablet by mouth once daily. 30 tablet 11 02/15/2025 Active Start: 12-20-2023 End: 12-19-2024 take 1 tablet by mouth twice daily ferrous sulfate (FEROSUL) 325 mg (65 mg iron) tablet Indications: Iron deficiency anemia due to chronic blood loss Take 1 tablet by mouth two times a day. 60 tablet 11 12/20/2023 12/19/2024 Active Start: 08-12-2023 End: 12-20-2023 take 1 tablet by mouth once daily FEROSUL 325 mg (65 mg iron) tablet Indications: Iron deficiency anemia due to chronic blood loss take 1 tablet by mouth once daily 30 tablet 4 08/12/2023 12/20/2023 Discontinued Start: 08-02-2023 Ferrous Sulfat e (Ferrous Sulfate 325 Mg (65 Mg Iron) Tablet) 325 mg (65 mg iron) tablet Active 325 MG PO DAILY August 02, 2023 12:00am Start: 04-22-2023 take 1 tablet by randolph th every other day ferrous sulfate 325 mg (65 mg iron) tablet Indications: Iron deficiency anemia due to chronic blood loss Take 1 tablet by mouth every other day. 0 04/22/2023 Active Start: 04-22-2023 End: 04-22-2023 take 1 tablet by mouth once daily ferrous sulfate 325 mg (65 mg iron) tablet Indications: Iron deficiency anemia due to chronic blood loss Take 1 tablet by mouth once daily. 30 tablet 3 04/22/2023 04/22/2023 Discontinued (Adjust Sig - Block E-Cancel) Comment on above: Take 1 tablet by randolph th every other day. Take 1 tablet by randolph th once daily. take 1 tablet by randolph th once daily fluticasone propionate 0.05 mg/actuat metered dose nasal spray (20 sources) Corticosteroid Start: 3 take 1 dose nasal route twice daily fluticasone proprionate NASAL 50 mcg/ spray Dose = 1 spray(s), Nostril, each, BID, 0 Refill(s) Start Date: 03/22/23 Status: Ordered Repeat number: 1 Start: 07-19-2021 End: 09-25-2024 take 1 spray(s) by mouth twice daily fluticasone (FLONASE) 50 mcg/actuation nasal spray Indications: Cough Use 1 [place] in each nostril two times a day. Rinse mouth after use. 16 g 11 09/25/2024 Active Start: 06-10-2021 End: 03-04-2023 Fluticasone Propionate (Flon ase Allergy Relief) 50 mcg/actuation spray,suspension Discontinued 2 SPRAY INTRANASAL DAILY 16 May 29, 2022 12:06pm March 04, 2023 11:50am Start: 12-04-2018 End: 03-10-2020 Fluticasone Propionate Disco ntinued 2 SPRAY INTRANASAL DAILY NEEDED 18.2 December 17, 2019 11:37am March 10, 2020 12:58pm Comment on above: Use 1 [place] in each nostril twice daily. Rinse mouth after use. 30 actuat fluticasone furoate 0.1 mg/actuat / umeclidinium 0.0625 mg/actuat / vilanterol 0.025 mg/actuat dry powder inhaler (20 sources) Anticholinergic , Corticosteroid, beta2-Adrenergi c Agonist Start: 10-07-19 25 End: 01-15-20 25 take 1 puff(s) by inhalation once daily fluticasone-umeclidin -vilanter (TRELEGY ELLIPTA) 100-62.5-25 mcg inhalation powder Inhale 1 puff as instructed once daily. 180 each 3 01/14/2025 Active iv contrast (will be provided with radiology test) (3 sources) Start: 06-01-20 24 End: 06-02-20 24 inject 1 dose intravenously once iv contrast (will be provided with radiology test) CTA Head/Neck W No IV access, insert saline lock prior to the sedation, infusion, injection for imaging exam. Discontinue saline lock post exam. If Pt. has a central line or IVAD, may access for administration according to line specific nursing protocol. Once exam is complete flush line and de-access according to line specific nursing protocol in the CT contrast administration guidelines link. 1 Each 06/01/2024 06/02/2024 Active Start: 05-21-2023 End: 05-22-2023 iv contrast (will be provide d with radiology test) CT ABD/PEL -Inject, intravenously, once for 1 dose.No IV access, insert saline lock prior to the beginning of sedation, infusion, injection of imaging exam. Discontinue saline lock post exam. If Pt. has a central line or IVAD, may access for administration according to line specific nursing protocol. Once exam is complete flush line and de-access according to line specific nursing protocol in the CT contrast administration guidelines link. 1 Each 0 05/21/2023 05/22/2023 Comment on above: CT ABD/PEL -Inject, intravenously, once for 1 dose.No IV access, insert saline lock prior to the beginning of sedation, infusion, injection of imaging exam. Discontinue saline lock post exam. If Pt. has a central line or IVAD, may access for administration according to line specific nursing protocol. Once exam is complete flush line and de-access according to line specific nursing protocol in the CT contrast administration guidelines link. 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 RIGHT LEG BRACE (AFO TYPE) 1 Each 10/14/2024 Active Lopressor 25mg--USE metoprolol tartrate 25 mg oral tablet (2 sources) Start: 11-18-2022 Lopressor 25mg --USE metoprolol tartrate 25 mg oral tablet Dose : 12.5 mg = 0.5 tab(s), BID, 0 Refill(s) Start Date: 11/18/22 Status: Ordered loratadine 10 mg oral tablet (3 sources) Start: 03-11-2019 take 10 mg by mouth once daily Loratadine Active 10 MG PO DAILY March 10, 2019 11:00pm LORazepam 1 mg oral tablet (20 sources) Benzodiazepine Start: 04-03-2024 End: 09-21-2024 take 1-2 tablets by mouth three times daily as needed for anxiety, then take 1-2 tablets by mouth three times daily as needed for anxiety LORazepam (ATIVAN) 1 mg tablet Indications: Anxiety , Chronic insomnia Take 1-2 tablets by mouth three times a day as needed for anxiety for up to 45 days. Take 1-2 pills three times a day 90 tablet 2 04/03/2024 Active Start: 08-02-2023 take 0.5 mg by mouth every eight hours Lorazepam Active 0.5 MG PO Q8H August 02, 2023 12:00am Start: 06-08-2022 End: 04-03-2024 take 0.5-1 mg by mouth every eight hours as needed for anxiety and anxiety LORazepam (ATIVAN) 0.5 mg Indications: Anxiety Take 1-2 tablets by mouth three times a day as needed for up to 90 days. 90 tablet 5 11/22/2023 04/03/2024 Discontinued (Dosage adjustment) Start: 03-11-2019 End: 04-04-2023 take 0.5 mg by mouth twice daily Lorazepam Discontinued 0.5 MG PO TWICE A DAY August 23, 2021 12:12pm April 04, 2023 5:08am Comment on above: TAKE ONE (1) TABLET BY MOUTH TWICE DAILY take 1 tablet by randolph th twice a day Take 1 tablet by randolph th three times daily as needed for up to 90 days. Take 1-2 tablets by mouth three times daily as needed for up to 90 days. Take 1-2 tablets by mouth three times a day as needed for up to 30 days. Take 1-2 tablets by mouth three times a day as needed for up to 90 days. losartan potassium 25 mg oral tablet (20 sources) Angiotensin 2 Receptor Matilda Start: 09-03-2022 End: 01-14-2025 take 1 tablet by mouth once daily losartan (COZAAR) 25 mg tablet Take 1 tablet by mouth once daily. 90 tablet 3 01/14/2025 Active Comment on above: Take 1 tablet by randolph th once daily. take 1 tablet by randolph th once daily Menthol / Zinc Oxide (20 sources) Start: 06-17-2021 Menthol-Zinc Oxide (Calmoseptine) 0.44-20.6 % Ointment Active 1 APPLIC TOPICAL THREE TIMES A DAY 0 June 17, 2021 4:46pm Start: 06-17-2021 Menthol-Zinc O xide (Calmoseptine) 0.44-20.6 % Ointment Active 1 APPLIC TOPICAL THREE TIMES A DAY 0 June 17, 2021 12:00am Start: 06-17-2021 Menthol-Zinc O xide (Calmoseptine) 0.44-20.6 % Ointment Active 1 APPLIC TOPICAL THREE TIMES A DAY 0 June 17, 2021 1:00am Start: 02-05-2017 End: 05-07-2018 Menthol-Zinc Oxide Discontin ued 1 APPLIC TOPICAL TWICE A DAY February 04, 2017 11:00pm May 07, 2018 12:47pm methylPREDNISolone (4 sources) Corticosteroid Start: 02-26-2023 End: 03-04-2023 methylPREDNISolone (MEDROL, SACHA,) 4 mg Dose-Pack Indications: Intercostal pain Follow dosing instructions, take with food. 21 tablet 0 02/26/2023 03/04/2023 Active Comment on above: Follow dosing instru ctions, take with food. miconazole nitrate 20 mg/ml topical cream (20 sources) Azole Antifungal Start: 08-17-2022 End: 09-27-2023 Miconazole Nitrate Active 1 APPLIC TOPICAL TWICE A DAY 15 August 17, 2022 12:00am Comment on above: Apply to affected ar ea twice daily. Multivitamin preparation (4 sources) Start: 11-18-2022 take 1 tablet by mouth once daily Multivitamin Dose = 1 tab(s), Oral, Daily, 0 Refill(s) Start Date: 11/18/22 Status: Ordered Repeat number: 1 Start: 11-18-2022 take 1 tablet by randolph th once daily Multivitamin Dose = 1 tab(s), Oral, Daily, 0 Refill(s) Start Date: 11/18/22 Status: Ordered multivitamin tablet (20 sources) Start: 07-23-2024 take 1 tablet by mouth once daily multivitamin tablet Take 1 tablet by mouth once daily. 90 tablet 3 07/23/2024 Active Start: 03-04-2024 End: 07-22-2024 take 1 tablet by mouth once daily multivitamin tablet Take 1 tablet by mouth once daily. 90 tablet 3 03/04/2024 07/22/2024 Discontinued Start: 03-04-2024 take 1 tablet by randolph th once daily multivitamin tablet Take 1 tablet by mouth once daily. 90 tablet 3 03/04/2024 Active Start: 03-07-2023 End: 03-04-2024 take 1 tablet by mouth once daily multivitamin tablet Take 1 tablet by mouth once daily. 90 tablet 3 03/07/2023 03/04/2024 Discontinued Start: 03-07-2023 take 1 tablet by randolph th once daily multivitamin tablet Take 1 tablet by mouth once daily. 90 tablet 3 03/07/2023 Active Start: 03-20-2022 End: 03-07-2023 take 1 tablet by mouth once daily multivitamin tablet Take 1 tablet by mouth once daily. 90 tablet 3 03/20/2022 03/07/2023 Discontinued Start: 03-20-2022 take 1 tablet by randolph th once daily multivitamin tablet Take 1 tablet by mouth once daily. 90 tablet 3 03/20/2022 Active Start: 02-03-2021 take 1 tablet by randolph th once daily multivitamin tablet Take 1 tablet by mouth once daily. 90 tablet 3 02/03/2021 Active Comment on above: Take 1 tablet by randolph th once daily. Multivitamin,Tx-Iro n-Minerals (Complete Multivitamin) tablet (11 sources) Start: 12-04-2018 take 1 tablet by mouth once daily Multivitamin,Tx-Ir on-Minerals (Complete Multivitamin) tablet Active 1 TABLET PO DAILY December 04, 2018 1:50pm Start: 12-04-2018 take 1 tablet by randolph th once daily Multivitamin,Bt-Tkgl-Xoweisfb (Complete Multivitamin) tablet Active 1 TABLET PO DAILY December 03, 2018 11:00pm Start: 12-04-2018 take 1 tablet by randolph th once daily Multivitamin,Hv-Olbh-Fvrmcjut (Complete Multivitamin) tablet Active 1 TABLET PO DAILY December 04, 2018 12:00am OXYGEN, HOME THERAPY, (20 sources) Start: 01-14-2025 OXYGEN, HOME T HERAPY, Indications: Centrilobular emphysema (HCC) , Chronic respiratory failure with hypoxia (HCC) 4 L/min by Nasal Cannula route as directed. 1 each 01/14/2025 Active Start: 05-14-2024 End: 01-14-2025 OXYGEN, HOME THERAPY, Indica tions: Centrilobular emphysema (HCC) , Chronic respiratory failure with hypoxia (HCC) 4 L/min by Nasal Cannula route as directed. 1 Each 05/14/2024 01/14/2025 Discontinued Start: 05-14-2024 OXYGEN, HOME T HERAPY, Indications: Centrilobular emphysema (HCC) , Chronic respiratory failure with hypoxia (HCC) 4 L/min by Nasal Cannula route as directed. 1 Each 05/14/2024 Active perflutren lipid microspheres 1.3 mL in NaCl (PF) 0.9% 10 mL injection (DEFINITY) (20 sources) Start: 11-22-2022 End: 02-21-2024 perflutren lipid microspheres 1.3 mL in NaCl (PF) 0.9% 10 mL injection (DEFINITY) polyethylene glycol 3350 324805 mg / potassium chloride 2970 mg / sodium bicarbonate 6740 mg / sodium chloride 5860 mg / sodium sulfate 24352 mg powder for oral solution (2 sources) Osmotic Laxative Start: 05-06-2024 End: 05-06-2024 peg 3350-Electrolytes (GOLYTELY) 236-22.74-6.74 -5.86 gram suspension Take 4,000 mL by mouth one time only for 1 dose. 1 Each 05/06/2024 05/06/2024 Active Start: 04-07-2023 End: 04-07-2023 peg 3350-Electrolytes (GOLYT ZACH) 236-22.74-6.74 -5.86 gram suspension Indications: Iron deficiency anemia due to chronic blood loss Take 4,000 mL by mouth one time only for 1 dose. Refer to printed prep instructions from your provider. 4000 mL 0 04/07/2023 04/07/2023 Active Comment on above: Take 4,000 mL by randolph one time only for 1 dose. Refer to printed prep instructions from your provider. potassium chloride 10 meq extended release oral tablet (20 sources) Start: 09-15-2024 Potassium Chloride (Eqv-K-Tab) 20 mEq oral tablet, extended release Dose : 20 mEq = 1 tab(s), Oral, TID, # 60 tab(s), 0 Refill(s) Start Date: 09/15/24 Status: Ordered Quantity: 60.0 Unit: tab(s) Repeat number: 1 Start: 11-18-2022 Potassium Chlo ride (Fey-Mxge-Ngh 10) 10 mEq oral tablet, extended release Dose : 20 mEq = 2 tab(s), Oral, TID, TAKE 2 TABLETS BY MOUTH THREE TIMES A DAY Start Date: 11/18/22 Status: Ordered Start: 03-20-2022 End: 01-14-2025 take 2 tablets by mouth three times daily potassium chloride (K-TAB) 10 mEq tablet Take 2 tablets by mouth three times a day. 540 tablet 3 01/14/2025 Active Start: 05-01-2021 take 2 tablets by mo [facility] three times daily potassium chloride (K-TAB) 10 mEq tablet Take 2 tablets by mouth three times daily. 540 tablet 3 05/01/2021 Active Start: 03-11-2019 End: 04-19-2020 take 20 mEq by mouth three times daily Potassium Chloride Discontinued 20 MEQ PO THREE TIMES A DAY October 07, 2019 3:56pm April 19, 2020 1:59pm Comment on above: Take 2 tablets by mo [facility] three times daily. predniSONE 10 mg oral tablet (20 sources) Start: 12-04-2022 End: 12-13-2022 predniSONE (DELTASONE) 10 mg tablet Indications: Acute cough Take 4 tabs daily for 3 days, then 2 tabs daily for 3 days, then 1 tab daily for 3 days with food. 21 tablet 0 12/04/2022 12/13/2022 Active Start: 08-17-2022 End: 08-22-2022 take 40 mg by mouth once daily Prednisone Discontinued 40 MG PO DAILY 6 August 17, 2022 12:00am August 22, 2022 10:47am Start: 07-12-2021 End: 08-23-2021 Prednisone Discontinued 10 M G PO daily July 12, 2021 12:00am August 23, 2021 11:49am take 4 tabs for three days, then 3 tabs for three days, then 2 tabs for three days, then 1 tab for 3 days Comment on above: Take 4 tabs daily fo r 3 days, then 2 tabs daily for 3 days, then 1 tab daily for 3 days with food. pregabalin 50 mg oral capsule (20 sources) Start: 10-16-2024 End: 07-13-2025 take 1 capsule by mouth twice daily pregabalin (LYRICA) 50 mg capsule Indications: Seizure (HCC) , Focal epilepsy (HCC) Take 1 capsule by mouth two times a day for 180 days. 180 capsule 1 01/14/2025 07/13/2025 Active Start: 10-14-2024 End: 04-12-2025 take 1 capsule by mouth twice daily pregabalin (LYRICA) 75 mg capsule Indications: Focal epilepsy (HCC) Take 1 capsule by mouth two times a day for 180 days. Patient should start on October 14, 2024. 180 capsule 1 10/14/2024 10/16/2024 Discontinued Start: 09-03-2024 End: 10-30-2024 pregabalin (LYRICA) 25 mg ca psule Indications: Seizure (HCC) , Focal epilepsy (HCC) Take 25 mg at bedtime for 1 week followed by 25 mg twice daily for 1 week followed by 25 mg in the morning and 50 mg at bedtime for 1 week followed by 50 mg twice daily for 1 week followed by 50 mg in the morning and 75 mg at bedtime for 1 week followed by 75 mg twice daily. 90 capsule 2 09/03/2024 10/16/2024 Discontinued 125 ml sodium chloride 9 mg/ ml prefilled syringe (20 sources) Start: 11-22-2022 End: 02-21-2024 sodium chloride 0.9 % (flush ) 10 mL (BD POSIFLUSH) Symbicort 160 mcg-4.5 mcg/in h Inhaler (3 sources) Start: 07-26-2023 Symbicort 160 mcg-4.5 mcg/inh Inhaler 0 Refill(s) Start Date: 07/26/23 Status: Ordered Start: 11-18-2022 take 1 dose by inhal ation twice daily Symbicort 160 mcg-4.5 mcg/inh Inhaler Dose = 2 puff(s), Inhalation, BID, # 6 gram(s), 0 Refill(s) Start Date: 11/18/22 Status: Ordered traZODone hydrochloride 100 mg oral tablet (20 sources) Serotonin Reuptake Inhibitor Start: 08-16-2022 take 100 mg by mouth at bedtime Trazodone Active 100 MG PO AT BEDTIME August 16, 2022 12:00am Start: 08-16-2022 End: 12-04-2022 take 50 mg by mouth at bedtime Trazodone Active 50 MG PO AT BEDTIME August 16, 2022 1:00am Start: 07-04-2022 End: 08-03-2022 take 1 tablet by mouth once daily at bedtime traZODone (DESYREL) 50 mg tablet Indications: Chronic insomnia Take 1 tablet by mouth daily at bedtime. 30 tablet 3 07/04/2022 08/03/2022 Active Start: 07-11-2021 End: 01-14-2025 take 1 tablet by mouth once daily at bedtime traZODone (DESYREL) 100 mg tablet Take 1 tablet by mouth daily at bedtime. 90 tablet 3 01/14/2025 Active Start: 03-11-2019 End: 04-19-2020 take 50 mg by mouth at bedtime Trazodone Discontinued 50 MG PO AT BEDTIME March 10, 2019 11:00pm April 19, 2020 1:24pm Comment on above: Take 1 tablet by randolph th daily at bedtime. take 1 tablet by randolph th at bedtime divalproex sodium 125 mg delayed release oral tablet (20 sources) Mood Stabilizer, Anti-epileptic Agent Start: 01-14-2025 End: 01-14-2025 take 1 tablet by mouth twice daily divalproex DR (DEPAKOTE) 125 mg EC tablet Take 1 tablet by mouth two times a day. 180 tablet 3 01/14/2025 Active Start: 07-13-2024 End: 01-09-2025 take 1 tablet by mouth twice daily divalproex DR (DEPAKOTE) 500 mg EC tablet Indications: Seizure disorder (HCC) take 1 tablet by mouth twice a day 180 tablet 3 08/07/2024 09/03/2024 Discontinued (Discontinued by Patient) Completed/Discontinued Medications Medication Drug Class(es) Dates Sig (Normalized) Sig (Original) acetaminophen 500 mg oral tablet (20 sources) Start: 09-27-2023 End: 01-14-2025 take 2 tablets by mouth every eight hours as needed acetaminophen (TYLENOL EXTRA STRENGTH) 500 mg tablet Take 2 tablets by mouth three times a day as needed for pain. 09/27/2023 01/14/2025 Discontinued Start: 11-11-2022 take 1000 mg by mout h every six hours Acetaminophen Active 1000 MG PO EVERY 6 HOURS November 11, 2022 12:00am Start: 12-21-2016 End: 02-05-2017 Acetaminophen Discontinued 6 50 MG GT EVERY 6 HOURS NEEDED December 20, 2016 11:00pm February 05, 2017 8:21am Comment on above: Take 2 tablets by mo uth three times a day as needed for pain. acetaminophen 325 mg / oxyCODONE hydrochloride 5 mg oral tablet (2 sources) Opioid Agonist Start: 3 End: 3 take 1 tablet by mouth every four hours Oxycodone-Acetaminop hen (Endocet) 5-325 mg tablet Discontinued 1 TABLET PO Q4H 14 3 2023 August 04, 2023 12:05am albuterol 0.833 mg/ml / ipratropium bromide 0.167 mg/ml inhalation solution (20 sources) Anticholinergic, beta2-Adrenergic Agonist Start: 7 End: 8 take 1 mL by inhalation every six hours Ipratropium-Albutero l Discontinued 3 ML INHALATION EVERY 6 HOURS WHILE AWAKE December 20, 2016 11:00pm May 07, 2018 12:47pm Start: 12-21-2016 End: 05-07-2018 take 1 mL by inhalation four times daily as needed Ipratropium-Albuterol Discontinued 3 ML INHALATION 4 TIMES DAILY NEEDED December 20, 2016 11:00pm May 07, 2018 12:47pm amoxicillin 875 mg / clavulanate 125 mg oral tablet (12 sources) Penicillin-class Antibacterial Start: 07-01-2024 End: 07-13-2024 take 1 tablet by mouth twice daily amoxicillin-clavulanate potassium (AUGMENTIN) 875-125 mg per tablet Take 1 tablet by mouth two times a day. 20 tablet 07/01/2024 07/13/2024 Discontinued (Other) Start: 12-11-2022 End: 12-21-2022 take 1 tablet by mouth twice daily amoxicillin-clavulanic acid (AUGMENTIN) 875-125 mg per tablet Take 1 tablet by mouth twice daily for 10 days. 20 tablet 0 12/11/2022 12/21/2022 Active Start: 11-18-2022 take 1 tablet by randolph th every twelve hours amoxicillin-clavulanate 875 mg-125 mg oral tablet 1 tab(s), Oral, q12h, # 20 tab(s), 0 Refill(s) Start Date: 11/18/22 Status: Ordered Start: 11-15-2022 End: 05-29-2023 take 1 tablet by mouth twice daily Amoxicillin-Pot Clavulanate Discontinued 1 TABLET PO TWICE A DAY 12 November 14, 2022 11:00pm May 29, 2023 12:17pm Comment on above: Take 1 tablet by randolph th twice daily for 10 days. benzonatate 100 mg oral capsule (6 sources) Non-narcotic Antitussive Start: End: take 1 capsule by mouth three times daily as needed for cough benzonatate (TESSALON PERLES) 100 mg capsule Indications: Bacterial pneumonia , COPD with exacerbation (HCC) Take 1 capsule by mouth three times daily as needed for cough. 30 capsule 2 04/27/2021 11/07/2021 Discontinued Start: 04-14-2021 End: 11-07-2021 take 1 capsule by mouth every eight hours as needed Benzonatate 200 mg capsule Take 1 capsule by mouth three times daily as needed. 45 capsule 1 04/14/2021 11/07/2021 Discontinued Comment on above: Take 1 capsule by mo uth three times daily as needed. Take 1 capsule by mo uth three times daily as needed for cough. bisacodyl 5 mg delayed release oral tablet (20 sources) Stimulant Laxative Start: 10-04-2021 End: 09-10-2022 Bisacodyl (DULCOLAX) 5 mg tab Indications: Blood in stool Use as directed for Miralax / Gatorade Bowel Prep Kit 4 tablet 0 10/04/2021 09/10/2022 Discontinued Start: 02-05-2017 End: 05-07-2018 Bisacodyl Discontinued 10 MG RECTAL .PRN X 1 February 04, 2017 11:00pm May 07, 2018 12:49pm Comment on above: Use as directed for Miralax / Gatorade Bowel Prep Kit Budesonide-Formote rol (6 sources) Corticosteroid, beta2-Adrenergic Agonist Start: 08-22-2022 End: 05-29-2023 take 1 puff(s) by mouth twice daily Budesonide-Formoterol (Symbicort) 160-4.5 mcg/actuation HFA aerosol inhaler Discontinued 2 PUFF INHALATION TWICE A DAY 3 August 22, 2022 12:00am May 29, 2023 12:18pm administer with spacer, rinse mouth after each use Start: 08-22-2022 take 1 puff(s) by mo [facility] twice daily Budesonide-Formoterol (Symbicort) 160-4.5 mcg/actuation HFA aerosol inhaler Active 2 PUFF INHALATION TWICE A DAY 3 August 22, 2022 1:00am administer with spacer, rinse mouth after each use cefdinir 300 mg oral capsule (8 sources) Cephalosporin Antibacterial Start: 12-11-2022 End: 12-11-2022 take 1 capsule by mouth twice daily cefdinir (OMNICEF) 300 mg capsule Take 1 capsule by mouth twice daily for 10 days. 20 capsule 0 12/11/2022 12/11/2022 Discontinued Start: 08-17-2022 End: 08-22-2022 take 1 dose by mouth twice daily Cefdinir Discontinued 300 MG PO TWICE A DAY 7 August 17, 2022 12:00am August 22, 2022 10:47am First dose tonight Comment on above: Take 1 capsule by mo [facility] twice daily for 10 days. cloBAZam 10 mg oral tablet (4 sources) Benzodiazepine Start: 07-01-20 End: 07-13-20 cloBAZam (ONFI) 10 mg tab tablet Take 1 tablet by mouth. 07/01/2024 07/13/2024 Discontinued (Other) clopidogrel 75 mg oral tablet (20 sources) P2Y12 Platelet Inhibitor Start: 12-31-19 End: 01-15-20 take 1 tablet by mouth once daily clopidogrel (PLAVIX) 75 mg tablet Take 75 mg by mouth once daily. 12/31/2023 01/14/2025 Discontinued Start: 09-07-2023 End: 12-31-2023 clopidogrel (PLAVIX) 75 mg t ablet 75 mg two times a day. 0 09/07/2023 12/31/2023 Discontinued Start: 12-21-2016 End: 06-25-2023 take 75 mg by mouth once daily Clopidogrel Discontinue d 75 MG PO DAILY April 19, 2020 1:58pm November 11, 2022 12:32pm Comment on above: Take 1 tablet by randolph th once daily. TAKE 1 TABLET BY RANDOLPH TH ONCE DAILY *EMERGENCY REFILL* 75 mg two times a da y. COMPOUNDED PRESCRIPTION (20 sources) Start: 04-30-2018 End: 09-10-2022 COMPOUNDED PRESCRIPTION Indications: Cerebrovascular accident (CVA), unspecified mechanism (HCC) , Right hemiplegia (HCC) Right arm wedge. Disp #1. Use as directed to keep right arm elevated. 1 Each 1 04/30/2018 09/10/2022 Discontinued Start: 04-30-2018 COMPOUNDED PRE SCRIPTION Indications: Cerebrovascular accident (CVA), unspecified mechanism (HCC) , Right hemiplegia (HCC) Right arm wedge. Disp #1. Use as directed to keep right arm elevated. 1 Each 1 04/30/2018 Active Start: 09-18-2017 COMPOUNDED PRE SCRIPTION Articulating AFO foot brace for right leg. Send to [employer]. Dx: I63.9 1 Device 09/18/2017 Active Start: 09-18-2017 COMPOUNDED PRE SCRIPTION Articulating AFO foot brace for right leg. Send to [employer]. Dx: I63.9 1 Device 0 09/18/2017 Active Start: 09-17-2017 COMPOUNDED PRE SCRIPTION EMBER [employer]ER DX I63.9 weight 162 # 1 Each 09/17/2017 Active Start: 09-17-2017 COMPOUNDED PRE SCRIPTION EMBER WALKER DX I63.9 weight 162 # 1 Each 0 09/17/2017 Active Comment on above: EMB[employer] W[employer] DX I63.9 weight 162 # Articulating AFO alex t brace for right leg. Send to [employer]. Dx: I63.9 Right arm wedge. Dis p #1. Use as directed to keep right arm elevated. Diaper,Brief, Adult,Disposable (DEPEND REAL FIT BRIEF MEN L/XL) misc (20 sources) Start: 06-10-2017 End: 12-31-2023 Diaper,Brief, Adult,Disposable (DEPEND REAL FIT BRIEF MEN L/XL) misc Indications: Cerebrovascular accident involving left middle cerebral artery territory (HCC) , Acute cerebral infarction (HCC) , Urinary incontinence, unspecified type 1 Each as needed. 100 Each 06/10/2017 12/31/2023 Discontinued (Course of therapy completed) Start: 06-10-2017 Diaper,Brief, Adult,Disposable (DEPEND REAL FIT BRIEF MEN L/XL) misc Indications: Cerebrovascular accident involving left middle cerebral artery territory (HCC) , Acute cerebral infarction (HCC) , Urinary incontinence, unspecified type 1 Each as needed. 100 Each 11 06/10/2017 Active Comment on above: 1 Each as needed. digoxin 0.125 mg oral tablet (11 sources) Cardiac Glycoside Start: 12-22-19 End: 12-05-19 Digoxin Discontinued 125 MCG GT DAILY December 20, 2016 11:00pm December 04, 2018 12:48pm enteric contrast (will be provided with radiology test) (1 source) Start: 05-21-20 End: 05-22-20 enteric contrast (will be provided with radiology test) For CT ABD/PEL W IVCON Routine order Administer, As Directed One Time Only, via Oral, Rectal, both Oral and Rectal, Enteric Tube, Stoma or Indwelling Catheter, Enteric Contrast as designated per enteric contrast guidelines 1 Each 0 05/21/2023 05/22/2023 Comment on above: For CT ABD/PEL W IVC ON Routine order Administer, As Directed One Time Only, via Oral, Rectal, both Oral and Rectal, Enteric Tube, Stoma or Indwelling Catheter, Enteric Contrast as designated per enteric contrast guidelines 120 actuat formoterol fumarate 0.0048 mg/actuat / glycopyrrolate 0.009 mg/actuat metered dose inhaler (7 sources) beta2-Adrenergic Agonist Start: 01-20-20 24 End: 03-23-20 24 take 2 puff(s) by inhalation twice daily BEVESPI AEROSPHERE 9-4.8 mcg Inhale 2 Puffs as instructed two times a day. 01/20/2024 03/23/2024 Discontinued (Course of therapy completed) furosemide 20 mg oral tablet (7 sources) Loop Diuretic End: 01-15-20 take 1 tablet by mouth once daily furosemide (LASIX) 20 mg tablet Take 20 mg by mouth once daily. 01/14/2025 Discontinued gabapentin 300 mg oral capsule (6 sources) Anti-epileptic Agent Start: 02-23-20 End: 03-09-20 take 1 capsule by mouth every twelve hours as needed gabapentin (NEURONTIN) 300 mg capsule Take 1 capsule by mouth twice daily as needed (pain) for up to 15 days. 30 capsule 0 02/22/2023 03/07/2023 Discontinued Comment on above: Take 1 capsule by mo [facility] twice daily as needed (pain) for up to 15 days. Gatorade Sports Drink (20 sources) Start: 10-05-19 End: 09-10-19 Gatorade Sports Drink Indications: Blood in stool Use as directed for Miralax / Gatorade Bowel Prep Kit 0 10/04/2021 09/10/2022 Discontinued Start: 10-04-2021 Gatorade Sport s Drink Indications: Blood in stool Use as directed for Miralax / Gatorade Bowel Prep Kit 0 10/04/2021 Active Comment on above: Use as directed for Miralax / Gatorade Bowel Prep Kit hydroCHLOROthiazide 12.5 mg oral tablet (20 sources) Thiazide Diuretic Start: 021 End: 023 take 6.25 mg by mouth once daily Hydrochlorothiazide Discontinued 6.25 MG PO DAILY March 12, 2022 1:03pm November 11, 2022 12:32pm Start: 04-22-2021 End: 01-14-2025 take 1 tablet by mouth once daily in the morning hydroCHLOROthiazide 12.5 mg tablet Take 1 tablet by mouth every morning. 05/10/2021 01/14/2025 Discontinued Start: 05-04-2020 End: 04-22-2021 take 6.25 mg by mouth once daily Hydrochlorothiazide Discontinued 6.25 MG PO DAILY March 28, 2021 1:39pm April 22, 2021 1:48pm Start: 12-04-2018 End: 05-04-2020 take 12.5 mg by mouth once daily Hydrochlorothiazide Discontinued 12.5 MG PO DAILY April 19, 2020 1:58pm May 04, 2020 12:52pm Comment on above: Take 1 tablet by randolph th once daily. hydrocortisone acetate 25 mg rectal suppository (11 sources) Corticosteroid Start: End: take 25 mg rectal route twice daily Hydrocortisone Acetate Discontinued 25 MG RECTAL BID@0600,2200 February 04, 2017 11:00pm May 07, 2018 12:48pm lactulose 667 mg/ml oral solution (11 sources) Osmotic Laxative Start: End: Lactulose Discontinued 15 ML GT AT BEDTIME December 20, 2016 11:00pm May 07, 2018 12:48pm levETIRAcetam 250 mg oral tablet (20 sources) Start: End: take 1 tablet by mouth twice daily levETIRAcetam (KEPPRA) 250 mg tablet Take 1 tablet by mouth two times a day. 07/01/2024 09/03/2024 Discontinued (Discontinued by Patient) Start: 06-24-2024 End: 09-03-2024 take 1 tablet by mouth twice daily levETIRAcetam (KEPPRA) 500 mg tablet Take 1 tablet by mouth two times a day. 60 tablet 2 06/24/2024 09/03/2024 Discontinued (Discontinued by Patient) levoFLOXacin 750 mg oral tablet (11 sources) Quinolone Antimicrobial Start: 07-11-2021 End: 08-23-2021 take 750 mg by mouth once daily Levofloxacin Discontinued 750 MG PO DAILY July 11, 2021 12:00am August 23, 2021 11:49am lidocaine 0.05 mg/mg medicated patch (11 sources) Antiarrhythmic, Amide Local Anesthetic Start: 12-21-2016 End: 05-07-2018 apply 1 dose topically once daily Lidocaine Discontinued 1 PATCH TOPICAL DAILY December 20, 2016 11:00pm May 07, 2018 12:47pm Melatonin (20 sources) End: 12-31-2023 MELATONIN ORAL Take by mouth daily at bedtime. 0 12/31/2023 Discontinued (Course of therapy completed) MELATONIN ORAL T lashaun by mouth daily at bedtime. 0 Active Comment on above: Take by mouth daily at bedtime. metoclopramide 10 mg oral tablet (11 sources) Dopamine-2 Receptor Antagonist Start: 12-21-2016 End: 02-05-2017 Metoclopramide Hcl Discontinued 5 MG GT 4 TIMES DAILY December 20, 2016 11:00pm February 05, 2017 8:24am metoprolol tartrate 25 mg oral tablet (20 sources) beta-Adrenergic Matilda Start: 09-16-2024 End: 09-16-2024 Metoprolol Tartrate 25 mg oral tablet Start: 09/16/24 5:00:00 PM EST, Dose = 12.5 mg, = 0.5 tab(s), Oral, Hold if SBP (mmHg) Start Date: 09/16/24 Stop Date: 09/16/24 Status: Completed Repeat number: 1 Start: 08-02-2023 take 12.5 mg by mout h twice daily Metoprolol Tartrate Active 12.5 MG PO TWICE A DAY August 02, 2023 12:00am hold if heart rate is less than 60 Start: 11-15-2022 End: 08-02-2023 take 25 mg by mouth twice daily Metoprolol Tartrate Di scontinued 25 MG PO TWICE A DAY November 15, 2022 1:42pm August 02, 2023 10:24am hold if heart rate is less than 60 Start: 03-20-2019 End: 02-01-2025 take 0.5 tablet by mouth twice daily metoprolol tartrate, short acting, (LOPRESSOR) 25 mg tablet Take 0.5 tablets by mouth two times a day. 90 tablet 3 01/14/2025 02/01/2025 Discontinued Start: 03-12-2019 End: 11-15-2022 take 12.5 mg by mouth twice daily Metoprolol Tartrate Discontinued 12.5 MG PO TWICE A DAY April 16, 2022 10:22am November 15, 2022 1:42pm hold if heart rate is less than 60 Start: 02-05-2017 End: 03-12-2019 take 25 mg by mouth twice daily Metoprolol Tartrate Di scontinued 25 MG PO TWICE A DAY February 04, 2017 11:00pm March 12, 2019 10:17am Start: 12-21-2016 End: 02-05-2017 Metoprolol Tartrate Disconti nued 50 MG GT TWICE A DAY December 20, 2016 11:00pm February 05, 2017 8:23am Comment on above: Take 0.5 tablets by mouth twice daily. Take 0.5 tablets by mouth twice daily. Hold if heart rate is less than 60 TAKE 1/2 TABLET BY M OUTH TWICE DAILY. HOLD IF HEART RATE IS LESS THAN 60 metroNIDAZOLE 500 mg oral tablet (4 sources) Nitroimidazole Antimicrobial Start: 07-15-2023 End: 07-15-2023 metroNIDAZOLE (FLAGYL) 500 mg tablet Take 1 tablet by mouth at 9pm and take 1 tablet by mouth at 11pm the night before surgery. 2 tablet 0 07/15/2023 Active Comment on above: Take 1 tablet by randolph th at 9pm and take 1 tablet by mouth at 11pm the night before surgery. neomycin sulfate 500 mg oral tablet (4 sources) Aminoglycoside Antibacterial Start: 07-15-2023 End: 07-15-2023 neomycin 500 mg tablet Take 2 tablets by mouth at 9pm and take 2 tablets by mouth at 11pm the night before surgery. 4 tablet 0 07/15/2023 Active Comment on above: Take 2 tablets by mo uth at 9pm and take 2 tablets by mouth at 11pm the night before surgery. nystatin 183998 unt/ml topical cream (20 sources) Polyene Antifungal Start: 11-18-2022 nystatin 100,000 units/g topical cream Apply 1 rigo, Topical, TID, 0 Refill(s), 82.4 Start Date: 11/18/22 Status: Ordered Start: 06-17-2021 End: 08-23-2021 Nystatin Discontinued 1 APPL IC TOPICAL TWICE A DAY 0 June 17, 2021 12:00am August 23, 2021 11:49am Start: 03-12-2019 End: 03-21-2019 Nystatin Discontinued 15 GM TP TWICE A DAY 1 7 March 11, 2019 11:00pm March 20, 2019 11:07pm to apply locally on glans penis for 7 days 10 actuat olodaterol 0.0025 mg/actuat / tiotropium 0.0025 mg/actuat inhalation spray (20 sources) Anticholinergic, beta2-Adrenergic Agonist Start: 05-04-2024 End: 05-04-2025 STIOLTO RESPIMAT 2.5-2.5 mcg/actuation inhaler inhale 2 puffs by mouth as directed once daily 12 g 3 05/04/2024 10/06/2024 Discontinued (Course of therapy completed) Start: 05-29-2023 Tiotropium-Olo daterol (Stiolto Respimat) 2.5-2.5 mcg/actuation mist Active 2 PUFF INHALATION DAILY May 28, 2023 11:00pm Start: 03-24-2023 take 1 dose by inhal ation every twenty-four hours Stiolto Respimat 60 ACT 2.5 mcg-2.5 mcg/inh inhalation aerosol Dose = 2 puff(s), Inhalation, q24h, 0 Refill(s) Start Date: 03/24/23 Status: Ordered Repeat number: 1 Start: 03-12-2023 End: 05-04-2024 tiotropium-olodaterol (STIOL TO RESPIMAT) 2.5-2.5 mcg/actuation Inhale 2 Puffs as instructed once daily. 1 Each 09/16/2023 Active Comment on above: Inhale 2 Puffs as in structed once daily. polyethylene glycol 3350 71206 mg powder for oral solution (20 sources) Osmotic Laxative Start: 10-05-19 End: 09-10-19 polyethylene glycol 3350 (MIRALAX, GLYCOLAX) 17 gram/dose powder Indications: Blood in stool Use as directed for Miralax / Gatorade Bowel Prep Kit 238 g 0 10/04/2021 09/10/2022 Discontinued Comment on above: Use as directed for Miralax / Gatorade Bowel Prep Kit sildenafil 100 mg oral tablet (20 sources) Phosphodiesterase 5 Inhibitor Start: 09-27-19 24 End: 04-03-20 take 1 tablet by mouth once daily as needed sildenafil (VIAGRA) 100 mg tablet Indications: Erectile dysfunction, unspecified erectile dysfunction type Take 1 tablet by mouth once daily as needed. Take 30-60 minutes before sexual activity. 9 tablet 5 09/27/2023 04/03/2024 Discontinued Start: 04-22-2021 Sildenafil Act jhonatan 50 MG PO NEEDED April 21, 2021 11:00pm Start: 02-17-2021 End: 11-07-2021 sildenafil (VIAGRA) 50 mg ta blet Take one pill 30-60 minutes prior to sexual activity as needed 6 tablet 5 02/17/2021 11/07/2021 Discontinued Comment on above: Take one pill 30-60 minutes prior to sexual activity as needed Take 1 tablet by randolph once daily as needed. Take 30-60 minutes before sexual activity. simethicone 80 mg chewable tablet (11 sources) Start: 2016 End: 2017 Simethicone Discontinued 40 MG GT TWICE A DAY December 20, 2016 11:00pm May 07, 2018 12:48pm sulfamethoxazole 800 mg / trimethoprim 160 mg oral tablet (11 sources) Dihydrofolate Reductase Inhibitor Antibacterial, Sulfonamide Antimicrobial Start: 2016 End: 2017 Sulfamethoxazole-T rimethoprim Discontinued 1 TABLET GT TWICE A DAY December 20, 2016 11:00pm May 07, 2018 12:48pm tadalafil 10 mg oral tablet (20 sources) Phosphodiesterase 5 Inhibitor Start: 2022 Tadalafil (CIALIS) 10 mg tablet Take one pill 30-60 minutes prior to sexual activity as needed 6 tablet 5 02/15/2023 Active Comment on above: Take one pill 30-60 minutes prior to sexual activity as needed 10 actuat tiotropium 0.0025 mg/actuat inhalation spray (20 sources) Anticholinergic Start: 2024 End: 2024 take 2 puff(s) by inhalation once daily SPIRIVA RESPIMAT 2.5 mcg/actuation inhaler Inhale 2 Puffs as instructed once daily. 09/18/2024 01/14/2025 Discontinued Start: 11-18-2022 Spiriva Respim at 1.25 mcg/inh inhalation aerosol 2 puff(s), Inhalation, qDay, # 4 gram(s), 0 Refill(s) Start Date: 11/18/22 Status: Ordered Start: 08-17-2022 tiotropium bro mide (SPIRIVA RESPIMAT) 2.5 mcg/actuation inhaler Inhale as instructed. 0 08/17/2022 Active Start: 08-17-2022 End: 08-22-2022 take 1 puff(s) by inhalation once daily Tiotropium [place] (Spiriva Respimat) 2.5 mcg/actuation mist Discontinued 2 PUFF INHALATION DAILY 4 August 17, 2022 12:00am August 22, 2022 11:06am Comment on above: Inhale as instructed . zinc oxide 0.2 mg/mg topical ointment (20 sources) Start: 09-27-2023 End: 06-05-2024 zinc oxide 20 % ointment Apply to affected area as needed. 09/27/2023 06/05/2024 Discontinued (Course of therapy completed) Comment on above: Apply to affected ar ea as needed. Problems Active Problems Problem Classification Problem Date Documented Da te Episodic/Chronic Abdominal pain (1 source) Left flank pain; Translations: [Unspecified abdominal pain] 03-07-2023 Episodic Acute and unspecified renal failure (1 source) Acute renal failure syndrome; Translations: [Acute kidney failure, unspecified] Onset: 11-19-2022 Episodic Acute cerebrovascular disease (20 sources) Cerebral infarction due to unspecified occlusion or stenosis of unspecified carotid artery; Translations: [Cerebrovascular accident] Onset: 07-27-2016 07-27-2016 Chronic Anal and rectal conditions (3 sources) Rectal mass; Translations: [Other specified diseases of anus and rectum] 06-12-2023 Episodic Anxiety disorders (20 sources) Anxiety; Translations: [Anxiety disorder, unspecified] Onset: 09-04-2017 09-04-2017 Chronic Aortic; peripheral; and visceral artery aneurysms (20 sources) Aneurysm; Translations: [Aneurysm of unspecified site] 07-27-2016 Chronic Cardiac dysrhythmias (20 sources) Paroxysmal atrial fibrillation; Translations: [Paroxysmal atrial fibrillation] Onset: 04-03-2021 04-03-2021 Chronic Cardiac dysrhythmias (20 sources) Bradycardia; Translations: [Bradycardia, unspecified] Onset: 03-20-2019 03-20-2019 Episodic Chronic kidney disease (20 sources) Chronic kidney disease stage 3A ; Translations: [Stage 3a chronic kidney disease (HCC)] Onset: 03-07-2023 03-07-2023 Chronic Chronic kidney disease (1 source) Chronic kidney disease; Translations: [Stage 3a chronic kidney disease (HCC)] Onset: 03-07-2023 Chronic obstructive pulmonary disease and bronchiectasis (20 sources) Acute exacerbation of chronic obstructive airways disease with asthma; Translations: [Chronic obstructive pulmonary disease with (acute) exacerbation] Onset: 03-12-2023 Resolved: 03-12-2023 Chronic Coronary atherosclerosis and other heart disease (20 sources) Coronary atherosclerosis; Translations: [Atherosclerotic heart disease of [place] coronary artery without angina pectoris] Onset: 04-02-2021 04-02-2021 Chronic Deficiency and other anemia (12 sources) Iron deficiency anemia due to blood loss; Translations: [Iron deficiency anemia secondary to blood loss (chronic)] 03-28-2023 Chronic Deficiency and other anemia (1 source) Iron deficiency anemia secondary to blood loss (chronic); Translations: [Iron deficiency anemia due to chronic blood loss] Onset: 04-10-2023 Chronic Deficiency and other anemia (11 sources) Anemia; Translations: [Anemia, unspecified] 03-11-2019 Episodic Diseases of white blood cells (20 sources) Leukocytosis; Translations: [Elevated white blood cell count, unspecified] 06-19-2021 Chronic Disorders of lipid metabolism (20 sources) Hyperlipidemia; Translations: [Hyperlipidemia, unspecified] Onset: 06-06-2010 06-06-2010 Chronic E Codes: Fall (2 sources) Unspecified fall, initial encounter; Translations: [Fall] Onset: 03-21-2023 Episodic Epilepsy; convulsions (20 sources) Seizure disorder; Translations: [Epilepsy, unspecified, not intractable, without status epilepticus] Onset: 07-01-2024 07-01-2024 Chronic Essential hypertension (20 sources) Essential hypertension; Translations: [Essential (primary) hypertension] Onset: 06-25-2017 06-25-2017 Chronic Fluid and electrolyte disorders (12 sources) Dehydration; Translations: [Dehydration] Episodic Fracture of lower limb (18 sources) Closed fracture of medial malleolus; Translations: [Displaced fracture of medial malleolus of unspecified tibia, initial encounter for closed fracture] Onset: 07-26-2023 Episodic Gastrointestinal hemorrhage (2 sources) Rectal hemorrhage; Translations: [Hemorrhage of anus and rectum] 05-09-2023 Episodic Genitourinary symptoms and ill-defined conditions (4 sources) Dysuria; Translations: [Dysuria] 08-08-2023 Episodic Immunizations and screening for infectious disease (1 source) Vaccination needed; Translations: [Encounter for immunization] 06-11-2023 Episodic Inflammatory conditions of male genital organs (2 sources) Balanitis; 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 Late effects of cerebrovascular disease (20 sources) Aphasia as late effect of cerebrovascular accident; Translations: [Aphasia following cerebral infarction] Onset: 05-10-2022 Chronic Miscellaneous mental health disorders (20 sources) Chronic insomnia; Translations: [Psychophysiologic insomnia] Onset: 04-04-2018 04-04-2018 Chronic Mood disorders (14 sources) Depressive disorder; Translations: [Depression, unspecified depression type] Onset: 01-14-2025 06-11-2023 Chronic Mycoses (2 sources) Dermal mycosis; Translations: [Superficial mycosis, unspecified] Episodic Nutritional deficiencies (1 source) Vitamin D deficiency; Translations: [Vitamin D deficiency, unspecified] 12-16-2023 Chronic Occlusion or stenosis of precerebral arteries (20 sources) Left carotid artery occlusion; Translations: [Occlusion and stenosis of left carotid artery] Onset: 07-02-2016 07-02-2016 Chronic Other aftercare (11 sources) Drug therapy finding; Translations: [Other rn er (current) drug therapy] 12-05-2020 Episodic Other aftercare (2 sources) Post-discharge follow-up; Translations: [Encounter for follow-up examination after completed treatment for conditions other than malignant neoplasm] 06-30-2024 Episodic Other aftercare (1 source) Other retirement (current) drug therapy; Translations: [Other rn er (current) drug therapy] Onset: 06-28-2024 Episodic Other and ill-defined cerebrovascular disease (12 sources) Cerebral arterial aneurysm; Translations: [Cerebral aneurysm, nonruptured] 03-11-2019 Chronic Other and ill-defined cerebrovascular disease (3 sources) Intracranial aneurysm; Translations: [Cerebral aneurysm, nonruptured] 05-08-2024 Chronic Other and ill-defined cerebrovascular disease (1 source) Cerebral aneurysm, nonruptured; Translations: [Cerebral aneurysm] Onset: 07-22-2024 Chronic Other and unspecified benign neoplasm (1 source) Benign neoplasm of rectum; Translations: [Benign neoplasm of rectum] 06-20-2023 Episodic Other and unspecified benign neoplasm (1 source) History of polyp of colon; Translations: [Personal history of colonic polyps] 02-24-2024 Episodic Other circulatory disease (11 sources) Disorder of carotid artery; Translations: [Disorder of arteries and arterioles, unspecified] 03-11-2019 Chronic Other circulatory disease (20 sources) Stenosis of left subclavian artery; Translations: [Stricture of artery] 03-23-2019 Chronic Other circulatory disease (2 sources) Disorder of arteries and arterioles, unspecified; Translations: [Unspecified disorders of arteries and arterioles] 08-09-2023 Chronic Other circulatory disease (1 source) Stricture of artery; Translations: [Stenosis of left subclavian artery (HCC)] Onset: 05-20-2024 Chronic Other circulatory disease (20 sources) History of cerebrovascular accident; Translations: [Personal history of transient ischemic attack (TIA), and cerebral infarction without residual deficits] 03-24-2019 Episodic Other circulatory disease (4 sources) H/O: atrial fibrillation; Translations: [Personal history of other diseases of the circulatory system] 03-09-2024 Episodic Other connective tissue disease (13 sources) Recurrent falls ; Translations: [Repeated falls] 07-19-2021 Episodic Other connective tissue disease (1 source) Pain of toe of left foot; Translations: [Pain in left toe(s)] 05-14-2023 Episodic Other connective tissue disease (1 source) Pain of toe of right foot; Translations: [Pain in right toe(s)] 05-14-2023 Episodic Other connective tissue disease (5 sources) Spasticity; Translations: [Cramp and spasm] 03-09-2024 Episodic Other connective tissue disease (2 sources) Neurological symptom; Translations: [Other symptoms and signs involving the nervous system] 03-09-2024 Episodic Other ear and sense organ disorders (1 source) Impacted cerumen of bilateral ears; Translations: [Impacted cerumen, bilateral] 02-26-2025 Episodic Other ear and sense organ disorders (1 source) Impacted cerumen, bilateral; Translations: [Bilateral impacted cerumen] Onset: 03-02-2025 Episodic Other gastrointestinal disorders (2 sources) Constipation; Translations: [Constipation, unspecified] 08-08-2023 Episodic Other gastrointestinal disorders (2 sources) Constipation, unspecified; Translations: [Constipation, unspecified] 08-09-2023 Episodic Other hereditary and degenerative nervous system conditions (1 source) Restless legs; Translations: [Restless legs syndrome] 12-16-2023 Chronic Other injuries and conditions due to external causes (1 source) Injury of head; Translations: [Unspecified injury of head, initial encounter] Onset: 03-21-2023 Episodic Other lower respiratory disease (14 sources) Dyspnea; Translations: [Shortness of breath] Episodic Other lower respiratory disease (7 sources) Radiologic infiltrate of lung ; Translations: [Other nonspecific abnormal finding of lung field] 06-10-2021 Episodic Other lower respiratory disease (11 sources) Lower respiratory tract infection; Translations: [Unspecified acute lower respiratory infection] 03-11-2019 Episodic Other lower respiratory disease (11 sources) Hypoxemia; Translations: [Hypoxemia] 05-03-2021 Episodic Other lower respiratory disease (11 sources) Lung mass; Translations: [Other nonspecific abnormal finding of lung field] 06-18-2021 Episodic Other lower respiratory disease (13 sources) Hypoxia; Translations: [Hypoxemia] 06-19-2021 Episodic Other lower respiratory disease (1 source) Other nonspecific abnormal finding of lung field; Translations: [Swelling, mass, or lump in chest] Episodic Other lower respiratory disease (5 sources) Hypoxemia; Translations: [Hypoxemia] Episodic Other lower respiratory disease (3 sources) Cough; Translations: [Acute cough] Episodic Other lower respiratory disease (4 sources) Single lobe lung infiltrate; Translations: [Other nonspecific abnormal finding of lung field] 06-10-2021 Episodic Other lower respiratory disease (3 sources) Cough; Translations: [Acute cough] 12-04-2022 Episodic Other lower respiratory disease (1 source) Shortness of breath; Translations: [Shortness of breath] Onset: 07-24-2024 Episodic Other male genital disorders (20 sources) Male erectile dysfunction, unspecified; Translations: [Impotence of organic origin] Onset: 06-06-2010 06-06-2010 Chronic Other nervous system disorders (6 sources) Aphasia; Translations: [Aphasia] 11-11-2022 Chronic Other nervous system disorders (2 sources) Aphasia; Translations: [Aphasia] 11-11-2022 Chronic Other nervous system disorders (1 source) Chronic pain; Translations: [Other chronic pain] Onset: 09-18-2024 Chronic Other nervous system disorders (20 sources) Dysphasia; Translations: [Dysphasia] 02-03-2021 Episodic Other nervous system disorders (13 sources) Abnormal gait; Translations: [Unspecified abnormalities of gait and mobility] 08-16-2021 Episodic Other nervous system disorders (1 source) Unspecified abnormalities of gait and mobility; Translations: [Abnormality of gait] Episodic Other nervous system disorders (3 sources) H/O: respiratory disease; Translations: [Personal history of other diseases of the nervous system and sense organs] 03-09-2024 Episodic Other nervous system disorders (1 source) Dysphasia; Translations: [Dysphasia] Onset: 08-21-2024 Episodic Other screening for suspected conditions (not mental disorders or infectious disease) (11 sources) CT of chest abnormal; Translations: [Abnormal findings on diagnostic imaging of other specified body structures] 05-18-2021 Chronic Other upper respiratory disease (11 sources) Tracheostomy present; Translations: [Tracheostomy status] 03-11-2019 Chronic Other upper respiratory disease (11 sources) Allergic rhinitis; Translations: [Allergic rhinitis, unspecified] 12-04-2018 Chronic Paralysis (20 sources) Right hemiplegia; Translations: [Hemiplegia, unspecified affecting right dominant side] Onset: 04-30-2018 Chronic Peripheral and visceral atherosclerosis (1 source) Peripheral vascular disease; Translations: [Peripheral vascular disease, unspecified] Chronic Pleurisy; pneumothorax; pulmonary collapse (20 sources) Pneumothorax; Translations: [Pneumothorax, unspecified] 06-19-2021 Episodic Residual codes; unclassified (4 sources) Obstructive sleep apnea syndrome; Translations: [Obstructive sleep apnea (adult) (pediatric)] Onset: 11-18-2022 Chronic Residual codes; unclassified (1 source) Hypoxia; Translations: [Idiopathic sleep related nonobstructive alveolar hypoventilation] 09-16-2023 Chronic Residual codes; unclassified (1 source) Sleep apnea, unspecified; Translations: [Sleep apnea, unspecified] Onset: 06-28-2024 Chronic Residual codes; unclassified (1 source) Central sleep apnea in conditions classified elsewhere; Translations: [Central sleep apnea in conditions classified elsewhere] Onset: 06-28-2024 Chronic Residual codes; unclassified (1 source) Obstructive sleep apnea (adult) (pediatric); Translations: [Obstructive sleep apnea (adult) (pediatric)] Onset: 01-31-2024 Chronic Residual codes; unclassified (11 sources) Confusional state; Translations: [Disorientation, unspecified] 05-01-2019 Episodic Residual codes; unclassified (3 sources) Difficulty sleeping ; Translations: [Sleep disorder, unspecified] Episodic Residual codes; unclassified (1 source) Other specified health status; Translations: [Other specified conditions influencing health status] 12-16-2023 Episodic Residual codes; unclassified (2 sources) Altered mental status; Translations: [Altered mental status, unspecified] 03-09-2024 Episodic Residual codes; unclassified (1 source) Transient alteration of awareness; Translations: [Transient alteration of awareness] 07-23-2024 Episodic Residual codes; unclassified (1 source) Disorientation, unspecified; Translations: [Disorientation, unspecified] Onset: 07-22-2024 Episodic Residual codes; unclassified (1 source) Personal history of other specified conditions; Translations: [Personal history of other specified conditions] Onset: 06-28-2024 Episodic Residual codes; unclassified (1 source) Tobacco user; Translations: [Tobacco use] 01-18-2025 Episodic Respiratory failure; insufficiency; arrest (adult) (6 sources) Dependence on nocturnal oxygen therapy; Translations: [Dependence on supplemental oxygen] Onset: 10-06-2024 03-23-2024 Chronic Septicemia (except in labor) (20 sources) Sepsis; Translations: [Sepsis, unspecified organism] 03-11-2019 Episodic Substance-related disorders (20 sources) Smoker; Translations: [Nicotine dependence, unspecified, uncomplicated] Onset: 06-28-2024 Chronic Unclassified (1 source) Acute cough; Translations: [Acute cough] Onset: 12-03-2024 Urinary tract infections (2 sources) Acute cystitis; Translations: [Acute cystitis without hematuria] Episodic Past or Other Problems Problem Classification Problem Date Documented Da te Episodic/Chronic Acquired foot deformities (3 sources) Right foot drop; Translations: [Foot drop, right foot] Onset: 06-05-2024 Episodic Coronary atherosclerosis and other heart disease (1 source) Presence of aortocoronary bypass graft; Translations: [History of coronary artery bypass, five] Onset: 05-20-2024 Episodic Diabetes mellitus without complication (6 sources) Increased glucose level; Translations: [Other abnormal glucose] Onset: 04-02-2024 Episodic E Codes: Adverse effects of medical drugs (3 sources) Adverse reaction to drug; Translations: [Adverse effect of unspecified drugs, medicaments and biological substances, initial encounter] Onset: 06-28-2024 06-30-2024 Episodic Epilepsy; convulsions (5 sources) Seizure; Translations: [Unspecified convulsions] Onset: 09-03-2024 09-03-2024 Episodic Malaise and fatigue (16 sources) Asthenia; Translations: [Other malaise] Onset: 09-16-2024 03-23-2019 Episodic Other aftercare (1 source) Encounter for other orthopedic aftercare; Translations: [Encounter for other orthopedic aftercare] Onset: 03-06-2024 Episodic Other aftercare (1 source) Encounter for follow-up examination after completed treatment for conditions other than malignant neoplasm; Translations: [Hospital discharge follow-up] Onset: 07-01-2024 Episodic Other circulatory disease (7 sources) Personal history of transient ischemic attack (TIA), and cerebral infarction without residual deficits; Translations: [Personal history of transient ischemic attack (TIA), and cerebral infarction without residual deficits] Onset: 06-05-2024 11-11-2022 Episodic Other circulatory disease (1 source) Personal history of other diseases of the circulatory system; Translations: [History of atrial fibrillation] Onset: 07-22-2024 Episodic Other connective tissue disease (3 sources) Repeated falls; Translations: [Repeated falls] Onset: 09-15-2024 Episodic Other connective tissue disease (1 source) Cramp and spasm; Translations: [Spasticity] Onset: 06-05-2024 Episodic Other connective tissue disease (1 source) Other symptoms and signs involving the nervous system; Translations: [Other symptoms and signs involving the nervous system] Onset: 05-07-2024 Episodic Other injuries and conditions due to external causes (1 source) Encounter for examination and observation following other accident; Translations: [Encounter for examination and observation following other accident] Onset: 04-28-2024 Episodic Other nervous system disorders (1 source) Unsteadiness on feet; Translations: [Unsteady gait] Onset: 10-07-2024 Episodic Other nervous system disorders (1 source) Personal history of other diseases of the nervous system and sense organs; Translations: [History of obstructive sleep apnea] Onset: 05-20-2024 Episodic Other non-traumatic joint disorders (20 sources) Chronic pain of right upper limb; Translations: [Pain in right shoulder] Onset: 04-16-2016 04-16-2016 Episodic Other non-traumatic joint disorders (2 sources) Pain in left knee; Translations: [Pain in joint, lower leg] Onset: 07-13-2024 07-13-2024 Episodic Other screening for suspected conditions (not mental disorders or infectious disease) (20 sources) Mixed obstructive and restrictive ventilatory defect; Translations: [Abnormal results of pulmonary function studies] Onset: 04-02-2024 Episodic Pneumonia (except that caused by tuberculosis or sexually transmitted disease) (20 sources) Pneumonia; Translations: [Pneumonia, unspecified organism] Onset: 11-17-2022 Resolved: 03-12-2023 11-11-2022 Episodic Residual codes; unclassified (11 sources) History of placement of gastrostomy tube; Translations: [History of gastrostomy tube placement] Onset: 11-07-2016 03-23-2019 Episodic Residual codes; unclassified (2 sources) Altered mental status, unspecified; Translations: [Altered mental status, unspecified] Onset: 07-14-2024 Episodic Respiratory failure; insufficiency; arrest (adult) (20 sources) Acute respiratory failure; Translations: [Acute respiratory failure with hypoxia] Onset: 03-07-2023 Resolved: 03-12-2023 04-22-2021 Episodic Screening and history of mental health and substance abuse codes (20 sources) Ex-cigarette smoker; Translations: [Personal history of nicotine dependence] Onset: 03-12-2023 03-12-2023 Episodic Spondylosis; intervertebral disc disorders; other back problems (20 sources) Neck pain; Translations: [Cervicalgia] Onset: 04-16-2016 04-16-2016 Episodic Unclassified (20 sources) Elevated blood pressure; Translations: [Elevated blood pressure] Onset: 06-06-2010 Resolved: 03-20-2019 03-20-2019 Results Test Name Value Interpretation Reference Range Facility [facility] 03-10-2025 [facility] Telephone (FAMPWS) AFSHIN ZEE ([id number]) 1955 M Date Time Provider Department 03/10/25 JACI ARROYO During your visit today, we recorded the following information about you: Amaya Kessler RN 03/10/2025 1:11 PM Signed Pt's Eli calling. States pt will be discharging from [facility] tomorrow and she would like to have outpatient therapy ordered for pt. Eli requesting orders for outpatient PT, OT and ST orders, by 4pm on 03/11/25, if possible. She would like to the orders faxed to [facility] AND she would also like then printed out and she may come to pick them up tomorrow-she is undecided yet. [facility], FAX #: [phone] Call Eli will any updates. DIANE Richmond Mark D, MD 03/11/2025 11:44 AM Signed Orders printed MD Alvaro Mathew Krystle, RN 03/11/2025 1:10 PM Signed Eli calls to check on request below. Orders faxed to [facility] as requested. Copies printed and placed in Medical Records for Eli to warehouse picker. Raiza John RN Allergies As of Date: 03/10/2025 Noted Allergy Reaction LISINOPRIL 09/27/2016 7 - Swelling 18 - Angioedema Comments: Lip swelling after starting lisinopril. 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 - baclofen 10 mg tablet Take 1 tablet by mouth three times a day. - busPIRone (BUSPAR) 15 mg tablet Take 1 tablet by mouth three times a day. - potassium chloride (K-TAB) 10 mEq tablet Take 2 tablets by mouth three times a day. - apixaban (ELIQUIS) 5 mg tab(s) Take 1 tablet by mouth every 12 hours. - escitalopram oxalate (LEXAPRO) 20 mg tablet Take 1 tablet by mouth once daily. - ezetimibe (ZETIA) 10 mg tablet Take 1 tablet by mouth once daily. - losartan (COZAAR) 25 mg tablet Take 1 tablet by mouth once daily. - pregabalin (LYRICA) 50 mg capsule Take 1 capsule by mouth two times a day for 180 days. - amiodarone (PACERONE) 100 mg tablet Take 1 tablet by mouth once daily. - amLODIPine (NORVASC) 10 mg tablet Take 1 tablet by mouth once daily. - divalproex DR (DEPAKOTE) 125 mg EC tablet Take 1 tablet by mouth two times a day. - atorvastatin (LIPITOR) 40 mg tablet Take 1 tablet by mouth once daily. - famotidine (PEPCID) 20 mg tablet Take 1 tablet by mouth once daily. - traZODone (DESYREL) 100 mg tablet Take 1 tablet by mouth daily at bedtime. - OXYGEN, HOME THERAPY, 4 L/min by Nasal Cannula route as directed. - fluticasone-umeclidin- vilanter (TRELEGY ELLIPTA) 100-62.5-25 mcg inhalation powder Inhale 1 puff as instructed once daily. - cetirizine (ZYRTEC) 10 mg tablet Take 1 tablet by mouth once daily. - clotrimazole-betametha sone (LOTRISONE) cream Apply to affected area two times a day. - albuterol HFA (PROVENTIL HFA, VENTOLIN HFA) 90 mcg/actuation inhaler Inhale 2 puffs as instructed every 4 hours as needed for wheezing/shortness of breath. - albuterol (PROVENTIL) 2.5 mg /3 mL (0.083 %) nebulizer solution Use 3 mL via nebulizer every 6 hours as needed for wheezing/shortness of breath. - Leg Brace misc 1 Each as directed. RIGHT LEG BRACE (AFO TYPE) - fluticasone (FLONASE) 50 mcg/actuation nasal spray Use 1 [place] in each nostril two times a day. Rinse mouth after use. - multivitamin tablet Take 1 tablet by mouth once daily. - LORazepam (ATIVAN) 1 mg tablet Take 1-2 tablets by mouth three times a day as needed for anxiety for up to 45 days. Take 1-2 pills three times a day - Blood Pressure Monitor kit 1 application twice daily. Measure patient for correct size. Patient needs cuff for left arm readings. - COMPOUNDED PRESCRIPTION Articulating AFO foot brace for right leg. Send to [employer]. Dx: I63.9 - COMPOUNDED PRESCRIPTION EMBER WALKER DX I63.9 weight 162 # Problem List As Of Date 03/10/2025 Noted Resolved Hyperlipidemia [E78.5] 06/06/2010 Elevated blood pressure [[id number]] 06/06/2010 03/20/2019 Erectile dysfunction [N52.9] 06/06/2010 Cervicalgia [M54.2] 04/16/2016 Chronic right shoulder pain [M25.511, G89.29 (more content not included)... Normal [facility]20[facility] AFSHIN ZEE ([id number]) 1955 M Date Time Provider Department 03/08/25 JACI ARROYO [facility] During your visit today, we recorded the following information about you: Raiza John RN 03/08/2025 9:05 AM Signed Spouse (Eli) calls to request a copy of the letter from Jessie Harmon that states patient is unable to make decisions for himself. Letter on file is not signed and spouse says it needs to be. Did not see anything in scanned documents. Eli asking if office has a copy of signed letter or could Dr. Arroyo print another one and sign it. Eli needs the letter by tomorrow morning for care plan meeting as patient is at [facility]. Please review and advise, DIANE Zayas Mark D, MD 03/08/2025 3:12 PM Signed Letter printed MD Anthony Mathew Kathryn, MA 03/08/2025 3:33 PM Signed Spoke with pt , Eli. 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 Monica Cruz MA Allergies As of Date: 03/08/2025 Noted Allergy Reaction LISINOPRIL 09/27/2016 7 - Swelling 18 - Angioedema Comments: Lip swelling after starting lisinopril. DOXYCYCLINE 12/11/2022 8 - GI Upset 14 - Other: See Comments Comments: GI upset (stomach ache/cramping/diarrhea ) and splotchy face SULFA (SULFONAMIDE ANTIBIOTICS) 03/11/2019 4 - Hives ZPAK (AZITHROMYCIN) 10/03/2018 4 - Hives Date Reviewed: 03/02/2025 Reviewed by: NENITA SENA - Fully Assessed Reason for Visit: Letter [264] Prescriptions as of 03/08/2025 - ferrous sulfate 325 mg (65 mg iron) tablet Take 1 tablet by mouth once daily. - baclofen 10 mg tablet Take 1 tablet by mouth three times a day. - busPIRone (BUSPAR) 15 mg tablet Take 1 tablet by mouth three times a day. - potassium chloride (K-TAB) 10 mEq tablet Take 2 tablets by mouth three times a day. - apixaban (ELIQUIS) 5 mg tab(s) Take 1 tablet by mouth every 12 hours. - escitalopram oxalate (LEXAPRO) 20 mg tablet Take 1 tablet by mouth once daily. - ezetimibe (ZETIA) 10 mg tablet Take 1 tablet by mouth once daily. - losartan (COZAAR) 25 mg tablet Take 1 tablet by mouth once daily. - pregabalin (LYRICA) 50 mg capsule Take 1 capsule by mouth two times a day for 180 days. - amiodarone (PACERONE) 100 mg tablet Take 1 tablet by mouth once daily. - amLODIPine (NORVASC) 10 mg tablet Take 1 tablet by mouth once daily. - divalproex DR (DEPAKOTE) 125 mg EC tablet Take 1 tablet by mouth two times a day. - atorvastatin (LIPITOR) 40 mg tablet Take 1 tablet by mouth once daily. - famotidine (PEPCID) 20 mg tablet Take 1 tablet by mouth once daily. - traZODone (DESYREL) 100 mg tablet Take 1 tablet by mouth daily at bedtime. - OXYGEN, HOME THERAPY, 4 L/min by Nasal Cannula route as directed. - fluticasone-umeclidin- vilanter (TRELEGY ELLIPTA) 100-62.5-25 mcg inhalation powder Inhale 1 puff as instructed once daily. - cetirizine (ZYRTEC) 10 mg tablet Take 1 tablet by mouth once daily. - clotrimazole-betametha sone (LOTRISONE) cream Apply to affected area two times a day. - albuterol HFA (PROVENTIL HFA, VENTOLIN HFA) 90 mcg/actuation inhaler Inhale 2 puffs as instructed every 4 hours as needed for wheezing/shortness of breath. - albuterol (PROVENTIL) 2.5 mg /3 mL (0.083 %) nebulizer solution Use 3 mL via nebulizer every 6 hours as needed for wheezing/shortness of breath. - Leg Brace misc 1 Each as directed. RIGHT LEG BRACE (AFO TYPE) - fluticasone (FLONASE) 50 mcg/actuation nasal spray Use 1 [place] in each nostril two times a day. Rinse mouth after use. - multivitamin tablet Take 1 tablet by mouth once daily. - LORazepam (ATIVAN) 1 mg tablet Take 1-2 tablets by mouth three times a day as needed for anxiety for up to 45 days. Take 1-2 pills three times a day - Blood Pressure Monitor kit 1 application twice daily. Measure patient for correct size. Patient needs cuff for left arm readings. - COMPOUNDED PRESCRIPTION Articulating AFO foot brace for right leg. Send to [employer]. 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 Normal [facility] 03-02-2025 [facility] Office Visit (FAMPWS ) AFSHIN ZEE ([id number]) 1955 M Date Time Provider Department 03/02/25 12:40 PM MARIANO BECKMAN FAMPWS During your visit today, we recorded the following information about you: Pulse Respiration Blood pressure 60/minute 20/minute 142/80 Mariano Beckman APRN.CNP 03/02/2025 1:41 PM Signed . NENITA SENA 03/02/2025 1:41 PM Signed Ambulatory Ear Lavage Pre-treatment: No pre-treatment Treatment: Both ears Equipment and Irrigation solution and Volume used: Single use syringe with single use irrigation tip Water Total Irrigation Volume: 400mL Return flow appearance: Debris Patient tolerated procedure: yes Tympanic membrane assessment: Tympanic membrane assessed by LIP pre and post procedure Allergies As of Date: 03/02/2025 Noted Allergy Reaction LISINOPRIL 09/27/2016 7 - Swelling 18 - Angioedema Comments: Lip swelling after starting lisinopril. DOXYCYCLINE 12/11/2022 8 - GI Upset 14 - Other: See Comments Comments: GI upset (stomach ache/cramping/diarrhea ) and splotchy face SULFA (SULFONAMIDE ANTIBIOTICS) 03/11/2019 4 - Hives ZPAK (AZITHROMYCIN) 10/03/2018 4 - Hives Date Reviewed: 03/02/2025 Reviewed by: NENITA SENA - Fully Assessed Reason for Visit: Ear Problem [38] Cmt: Needs ear lavage before hearing test on 03/04/2025 Primary Visit Diagnosis:Bilateral impacted cerumen [H61.23] Order(s):AMBULATORY EAR LAVAGE/IRRIGATION [10442GVS] Order #: [id number] Prescriptions as of 03/02/2025 - ferrous sulfate 325 mg (65 mg iron) tablet Take 1 tablet by mouth once daily. - baclofen 10 mg tablet Take 1 tablet by mouth three times a day. - busPIRone (BUSPAR) 15 mg tablet Take 1 tablet by mouth three times a day. - potassium chloride (K-TAB) 10 mEq tablet Take 2 tablets by mouth three times a day. - apixaban (ELIQUIS) 5 mg tab(s) Take 1 tablet by mouth every 12 hours. - escitalopram oxalate (LEXAPRO) 20 mg tablet Take 1 tablet by mouth once daily. - ezetimibe (ZETIA) 10 mg tablet Take 1 tablet by mouth once daily. - losartan (COZAAR) 25 mg tablet Take 1 tablet by mouth once daily. - pregabalin (LYRICA) 50 mg capsule Take 1 capsule by mouth two times a day for 180 days. - amiodarone (PACERONE) 100 mg tablet Take 1 tablet by mouth once daily. - amLODIPine (NORVASC) 10 mg tablet Take 1 tablet by mouth once daily. - divalproex DR (DEPAKOTE) 125 mg EC tablet Take 1 tablet by mouth two times a day. - atorvastatin (LIPITOR) 40 mg tablet Take 1 tablet by mouth once daily. - famotidine (PEPCID) 20 mg tablet Take 1 tablet by mouth once daily. - traZODone (DESYREL) 100 mg tablet Take 1 tablet by mouth daily at bedtime. - OXYGEN, HOME THERAPY, 4 L/min by Nasal Cannula route as directed. - fluticasone-umeclidin- vilanter (TRELEGY ELLIPTA) 100-62.5-25 mcg inhalation powder Inhale 1 puff as instructed once daily. - cetirizine (ZYRTEC) 10 mg tablet Take 1 tablet by mouth once daily. - clotrimazole-betametha sone (LOTRISONE) cream Apply to affected area two times a day. - albuterol HFA (PROVENTIL HFA, VENTOLIN HFA) 90 mcg/actuation inhaler Inhale 2 puffs as instructed every 4 hours as needed for wheezing/shortness of breath. - albuterol (PROVENTIL) 2.5 mg /3 mL (0.083 %) nebulizer solution Use 3 mL via nebulizer every 6 hours as needed for wheezing/shortness of breath. - Leg Brace misc 1 Each as directed. RIGHT LEG BRACE (AFO TYPE) - fluticasone (FLONASE) 50 mcg/actuation nasal spray Use 1 [place] in each nostril two times a day. Rinse mouth after use. - multivitamin tablet Take 1 tablet by mouth once daily. - LORazepam (ATIVAN) 1 mg tablet Take 1-2 tablets by mouth three times a day as needed for anxiety for up to 45 days. Take 1-2 pills three times a day - Blood Pressure Monitor kit 1 application twice daily. Measure patient for correct size. Patient needs cuff for left arm readings. - COMPOUNDED PRESCRIPTION Articulating AFO foot brace for right leg. Send to [employer]. Dx: I63.9 - COMPOUNDED PRESCRIPTION EMBER WALKER DX I63.9 weight 162 # Problem List As Of Date 03/02/2025 Noted Resolved Hyperlipidemia [E78.5] 06/06/2010 Elevated blood pressure [[id number]] 06/06/2010 03/20/2019 Erectile dysfunction [N52.9] 06/06/2010 Cervicalgia [M54.2] 04/16/2016 Chronic right shoulder pain [M25.511, G89.29] 04/16/2016 Occlusion of left carotid artery [I65.22] 07/02/2016 Stroke (cerebrum) (HCC) [I63.9] Aneurysm (HCC) [I72.9] Essential hypertension [I10] 06/25/2017 Anxiety [F41.9] 09/04/2017 Chronic insomnia [F51.04] 04/04/2018 Right hemiplegia (HCC) [G81.91] 04/30/2018 Sinus bradycardia [R00.1] 03/20/2019 Dysphasia [R47.02] Coronary artery disease involving [place]*04/02/2021 Paroxysmal atrial fibrillation (HCC) [I48.0] 04/03/2021 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 Normal [facility] CNPNon 02-18-2025 CNPN Telephone (FAMPWS) AFSHIN ZEE ([id number]) 1955 M Date Time Provider Department 02/18/25 JACI ARROYO [facility] During your visit today, we recorded the following information about you: Milan Brunson RN 02/18/2025 2:46 PM Signed Faxed recent pcp ov notes to [facility], per request. Confirmation received. Reports [facility] informed her [facility] could move into [facility] in 1-2 weeks but they would need pcp ov notes. reports pt is having trouble with balance. Allergies As of Date: 02/18/2025 Noted Allergy Reaction LISINOPRIL 09/27/2016 7 - Swelling 18 - Angioedema Comments: Lip swelling after starting lisinopril. DOXYCYCLINE 12/11/2022 8 - GI Upset 14 - Other: See Comments Comments: GI upset (stomach ache/cramping/diarrhea ) and splotchy face SULFA (SULFONAMIDE ANTIBIOTICS) 03/11/2019 4 - Hives ZPAK (AZITHROMYCIN) 10/03/2018 4 - Hives Date Reviewed: 02/01/2025 Reviewed by: Robin Johansen MD - Fully Assessed Reason for Visit: Faxed to [facility] [Other] Prescriptions as of 02/18/2025 - ferrous sulfate 325 mg (65 mg iron) tablet Take 1 tablet by mouth once daily. - baclofen 10 mg tablet Take 1 tablet by mouth three times a day. - busPIRone (BUSPAR) 15 mg tablet Take 1 tablet by mouth three times a day. - potassium chloride (K-TAB) 10 mEq tablet Take 2 tablets by mouth three times a day. - apixaban (ELIQUIS) 5 mg tab(s) Take 1 tablet by mouth every 12 hours. - escitalopram oxalate (LEXAPRO) 20 mg tablet Take 1 tablet by mouth once daily. - ezetimibe (ZETIA) 10 mg tablet Take 1 tablet by mouth once daily. - losartan (COZAAR) 25 mg tablet Take 1 tablet by mouth once daily. - pregabalin (LYRICA) 50 mg capsule Take 1 capsule by mouth two times a day for 180 days. - amiodarone (PACERONE) 100 mg tablet Take 1 tablet by mouth once daily. - amLODIPine (NORVASC) 10 mg tablet Take 1 tablet by mouth once daily. - divalproex DR (DEPAKOTE) 125 mg EC tablet Take 1 tablet by mouth two times a day. - atorvastatin (LIPITOR) 40 mg tablet Take 1 tablet by mouth once daily. - famotidine (PEPCID) 20 mg tablet Take 1 tablet by mouth once daily. - traZODone (DESYREL) 100 mg tablet Take 1 tablet by mouth daily at bedtime. - OXYGEN, HOME THERAPY, 4 L/min by Nasal Cannula route as directed. - fluticasone-umeclidin- vilanter (TRELEGY ELLIPTA) 100-62.5-25 mcg inhalation powder Inhale 1 puff as instructed once daily. - cetirizine (ZYRTEC) 10 mg tablet Take 1 tablet by mouth once daily. - clotrimazole-betametha sone (LOTRISONE) cream Apply to affected area two times a day. - albuterol HFA (PROVENTIL HFA, VENTOLIN HFA) 90 mcg/actuation inhaler Inhale 2 puffs as instructed every 4 hours as needed for wheezing/shortness of breath. - albuterol (PROVENTIL) 2.5 mg /3 mL (0.083 %) nebulizer solution Use 3 mL via nebulizer every 6 hours as needed for wheezing/shortness of breath. - Leg Brace misc 1 Each as directed. RIGHT LEG BRACE (AFO TYPE) - fluticasone (FLONASE) 50 mcg/actuation nasal spray Use 1 [place] in each nostril two times a day. Rinse mouth after use. - multivitamin tablet Take 1 tablet by mouth once daily. - LORazepam (ATIVAN) 1 mg tablet Take 1-2 tablets by mouth three times a day as needed for anxiety for up to 45 days. Take 1-2 pills three times a day - Blood Pressure Monitor kit 1 application twice daily. Measure patient for correct size. Patient needs cuff for left arm readings. - COMPOUNDED PRESCRIPTION Articulating AFO foot brace for right leg. Send to [employer]. Dx: I63.9 - COMPOUNDED PRESCRIPTION EMBER WALKER DX I63.9 weight 162 # Problem List As Of Date 02/18/2025 Noted Resolved Hyperlipidemia [E78.5] 06/06/2010 Elevated blood pressure [[id number]] 06/06/2010 03/20/2019 Erectile dysfunction [N52.9] 06/06/2010 Cervicalgia [M54.2] 04/16/2016 Chronic right shoulder pain [M25.511, G89.29] 04/16/2016 Occlusion of left carotid artery [I65.22] 07/02/2016 Stroke (cerebrum) (HCC) [I63.9] Aneurysm (HCC) [I72.9] Essential hypertension [I10] 06/25/2017 Anxiety [F41.9] 09/04/2017 Chronic insomnia [F51.04] 04/04/2018 Right hemiplegia (HCC) [G81.91] 04/30/2018 Sinus bradycardia [R00.1] 03/20/2019 Dysphasia [R47.02] Coronary artery disease involving [place]*04/02/2021 Paroxysmal atrial fibrillation (HCC) [I48.0] 04/03/2021 Aphasia as late effect of cerebrovascular accid*05/10/2022 Bacterial pneumonia [J15.9] 11/17/2022 03/12/2023 Tracheostomy status (HCC) [Z93.0] 12/04/2022 02/26/2023 Respiratory failure, unspecified chronicity, un*03/07/2023 03/12/2023 Stage 3a chronic kidney disease (HCC) [N18.31] 03/07/2023 COPD with exacerbation (HCC) [J44.1] 03/12/2023 03/12/2023 Centrilobular emphysema (HCC) [J43.2] 03/12/2023 Former cigarette smoker [Z87.891] 03/12/2023 Stage 3 chronic kidney (more content not included)... Normal [facility] 02-15-2025 CNPN Telephone (FAMPWS) AFSHIN ZEE ([id number]) 1955 M Date Time Provider Department 02/15/25 JACI ARROYO During your visit today, we recorded the following information about you: Dimple Agustin LPN 02/15/2025 11:30 AM Signed Pt's calls to request rx for ferrous sul 325 mg. Pt reports pt was taking this [place] the [place]. reports she thinks he took it before that also. reports she cannot find this otc. Last OV: 01/14/25 - Next scheduled appt: 01/31/25 is requesting rx go to [facility] in [facility]. Call when this has been done. JAVI Sneed Mark D, MD 02/15/2025 1:14 PM Signed OK to refill as ordered MD Anthony Mathew Kathryn, MA 02/15/2025 2:27 PM Signed Pt notified. Monica Cruz MA Allergies As of Date: 02/15/2025 Noted Allergy Reaction LISINOPRIL 09/27/2016 7 - Swelling 18 - Angioedema Comments: Lip swelling after starting lisinopril. DOXYCYCLINE 12/11/2022 8 - GI Upset 14 - Other: See Comments Comments: GI upset (stomach ache/cramping/diarrhea ) and splotchy face SULFA (SULFONAMIDE ANTIBIOTICS) 03/11/2019 4 - Hives ZPAK (AZITHROMYCIN) 10/03/2018 4 - Hives Date Reviewed: 02/01/2025 Reviewed by: Robin Johansen MD - Fully Assessed Reason for Visit: Medication Request [138] Order(s):ferrous sulfate 325 mg (65 mg iron) tabletTake 1 tablet by mouth once daily.Disp: 30 tabletRfl: 11 Prescriptions as of 02/15/2025 - ferrous sulfate 325 mg (65 mg iron) tablet Take 1 tablet by mouth once daily. - baclofen 10 mg tablet Take 1 tablet by mouth three times a day. - busPIRone (BUSPAR) 15 mg tablet Take 1 tablet by mouth three times a day. - potassium chloride (K-TAB) 10 mEq tablet Take 2 tablets by mouth three times a day. - apixaban (ELIQUIS) 5 mg tab(s) Take 1 tablet by mouth every 12 hours. - escitalopram oxalate (LEXAPRO) 20 mg tablet Take 1 tablet by mouth once daily. - ezetimibe (ZETIA) 10 mg tablet Take 1 tablet by mouth once daily. - losartan (COZAAR) 25 mg tablet Take 1 tablet by mouth once daily. - pregabalin (LYRICA) 50 mg capsule Take 1 capsule by mouth two times a day for 180 days. - amiodarone (PACERONE) 100 mg tablet Take 1 tablet by mouth once daily. - amLODIPine (NORVASC) 10 mg tablet Take 1 tablet by mouth once daily. - divalproex DR (DEPAKOTE) 125 mg EC tablet Take 1 tablet by mouth two times a day. - atorvastatin (LIPITOR) 40 mg tablet Take 1 tablet by mouth once daily. - famotidine (PEPCID) 20 mg tablet Take 1 tablet by mouth once daily. - traZODone (DESYREL) 100 mg tablet Take 1 tablet by mouth daily at bedtime. - OXYGEN, HOME THERAPY, 4 L/min by Nasal Cannula route as directed. - fluticasone-umeclidin- vilanter (TRELEGY ELLIPTA) 100-62.5-25 mcg inhalation powder Inhale 1 puff as instructed once daily. - cetirizine (ZYRTEC) 10 mg tablet Take 1 tablet by mouth once daily. - clotrimazole-betametha sone (LOTRISONE) cream Apply to affected area two times a day. - albuterol HFA (PROVENTIL HFA, VENTOLIN HFA) 90 mcg/actuation inhaler Inhale 2 puffs as instructed every 4 hours as needed for wheezing/shortness of breath. - albuterol (PROVENTIL) 2.5 mg /3 mL (0.083 %) nebulizer solution Use 3 mL via nebulizer every 6 hours as needed for wheezing/shortness of breath. - Leg Brace misc 1 Each as directed. RIGHT LEG BRACE (AFO TYPE) - fluticasone (FLONASE) 50 mcg/actuation nasal spray Use 1 [place] in each nostril two times a day. Rinse mouth after use. - multivitamin tablet Take 1 tablet by mouth once daily. - LORazepam (ATIVAN) 1 mg tablet Take 1-2 tablets by mouth three times a day as needed for anxiety for up to 45 days. Take 1-2 pills three times a day - Blood Pressure Monitor kit 1 application twice daily. Measure patient for correct size. Patient needs cuff for left arm readings. - COMPOUNDED PRESCRIPTION Articulating AFO foot brace for right leg. Send to [employer]. Dx: I63.9 - COMPOUNDED PRESCRIPTION EMBER WALKER DX I63.9 weight 162 # Problem List As Of Date 02/15/2025 Noted Resolved Hyperlipidemia [E78.5] 06/06/2010 Elevated blood pressure [[id number]] 06/06/2010 03/20/2019 Erectile dysfunction [N52.9] 06/06/2010 Cervicalgia [M54.2] 04/16/2016 Chronic right shoulder pain [M25.511, G89.29] 04/16/2016 Occlusion of left carotid artery [I65.22] 07/02/2016 Stroke (cerebrum) (HCC) [I63.9] Aneurysm (HCC) [I72.9] Essential hypertension [I10] 06/25/2017 Anxiety [F41.9] 09/04/2017 Chronic insomnia [F51.04] 04/04/2018 Right hemiplegia (HCC) [G81.91] 04/30/2018 Sinus bradycardia [R00.1] 03/20/2019 Dysphasia [R47.02] Coronary artery disease involving [place]*04/02/2021 Paroxysmal atrial fibrillation (HCC) [I48.0] 04/03/2021 Aphasia as late effect of cerebrovascular accid*05/10/2022 Bacterial pneumonia [J15.9] 11/17/2022 03/12/2023 Tr (more content not included)... Normal [facility] CNPN Telephone (PEDSWS) AFSHIN ZEE ([id number]) 1955 M Date Time Provider Department 02/15/25 JACI ARROYO [facility] During your visit today, we recorded the following information about you: Karlee Delarosa 02/15/2025 8:32 AM Signed Patient called in and asked that a nurse of Dr Johansen please call her back LUCÍA. There is a question regarding a medication that [facility] has. Please call spouse back at [phone]. Thank you! Rody Ingram RN 02/17/2025 10:45 AM Signed Called back and patient's , Eli, wanted to verify that the metoprolol was discontinued at last office visit with Dr. Johansen. Note reviewed and verified. Medication is d/c'd in Epic. Rody Main RN Allergies As of Date: 02/15/2025 Noted Allergy Reaction LISINOPRIL 09/27/2016 7 - Swelling 18 - Angioedema Comments: Lip swelling after starting lisinopril. DOXYCYCLINE 12/11/2022 8 - GI Upset 14 - Other: See Comments Comments: GI upset (stomach ache/cramping/diarrhea ) and splotchy face SULFA (SULFONAMIDE ANTIBIOTICS) 03/11/2019 4 - Hives ZPAK (AZITHROMYCIN) 10/03/2018 4 - Hives Date Reviewed: 02/01/2025 Reviewed by: Robin Johansen MD - Fully Assessed Reason for Visit: Medication Problem [65] Prescriptions as of 02/17/2025 - ferrous sulfate 325 mg (65 mg iron) tablet Take 1 tablet by mouth once daily. - baclofen 10 mg tablet Take 1 tablet by mouth three times a day. - busPIRone (BUSPAR) 15 mg tablet Take 1 tablet by mouth three times a day. - potassium chloride (K-TAB) 10 mEq tablet Take 2 tablets by mouth three times a day. - apixaban (ELIQUIS) 5 mg tab(s) Take 1 tablet by mouth every 12 hours. - escitalopram oxalate (LEXAPRO) 20 mg tablet Take 1 tablet by mouth once daily. - ezetimibe (ZETIA) 10 mg tablet Take 1 tablet by mouth once daily. - losartan (COZAAR) 25 mg tablet Take 1 tablet by mouth once daily. - pregabalin (LYRICA) 50 mg capsule Take 1 capsule by mouth two times a day for 180 days. - amiodarone (PACERONE) 100 mg tablet Take 1 tablet by mouth once daily. - amLODIPine (NORVASC) 10 mg tablet Take 1 tablet by mouth once daily. - divalproex DR (DEPAKOTE) 125 mg EC tablet Take 1 tablet by mouth two times a day. - atorvastatin (LIPITOR) 40 mg tablet Take 1 tablet by mouth once daily. - famotidine (PEPCID) 20 mg tablet Take 1 tablet by mouth once daily. - traZODone (DESYREL) 100 mg tablet Take 1 tablet by mouth daily at bedtime. - OXYGEN, HOME THERAPY, 4 L/min by Nasal Cannula route as directed. - fluticasone-umeclidin- vilanter (TRELEGY ELLIPTA) 100-62.5-25 mcg inhalation powder Inhale 1 puff as instructed once daily. - cetirizine (ZYRTEC) 10 mg tablet Take 1 tablet by mouth once daily. - clotrimazole-betametha sone (LOTRISONE) cream Apply to affected area two times a day. - albuterol HFA (PROVENTIL HFA, VENTOLIN HFA) 90 mcg/actuation inhaler Inhale 2 puffs as instructed every 4 hours as needed for wheezing/shortness of breath. - albuterol (PROVENTIL) 2.5 mg /3 mL (0.083 %) nebulizer solution Use 3 mL via nebulizer every 6 hours as needed for wheezing/shortness of breath. - Leg Brace misc 1 Each as directed. RIGHT LEG BRACE (AFO TYPE) - fluticasone (FLONASE) 50 mcg/actuation nasal spray Use 1 [place] in each nostril two times a day. Rinse mouth after use. - multivitamin tablet Take 1 tablet by mouth once daily. - LORazepam (ATIVAN) 1 mg tablet Take 1-2 tablets by mouth three times a day as needed for anxiety for up to 45 days. Take 1-2 pills three times a day - Blood Pressure Monitor kit 1 application twice daily. Measure patient for correct size. Patient needs cuff for left arm readings. - COMPOUNDED PRESCRIPTION Articulating AFO foot brace for right leg. Send to [employer]. Dx: I63.9 - COMPOUNDED PRESCRIPTION EMBER WALKER DX I63.9 weight 162 # Problem List As Of Date 02/15/2025 Noted Resolved Hyperlipidemia [E78.5] 06/06/2010 Elevated blood pressure [[id number]] 06/06/2010 03/20/2019 Erectile dysfunction [N52.9] 06/06/2010 Cervicalgia [M54.2] 04/16/2016 Chronic right shoulder pain [M25.511, G89.29] 04/16/2016 Occlusion of left carotid artery [I65.22] 07/02/2016 Stroke (cerebrum) (HCC) [I63.9] Aneurysm (HCC) [I72.9] Essential hypertension [I10] 06/25/2017 Anxiety [F41.9] 09/04/2017 Chronic insomnia [F51.04] 04/04/2018 Right hemiplegia (HCC) [G81.91] 04/30/2018 Sinus bradycardia [R00.1] 03/20/2019 Dysphasia [R47.02] Coronary artery disease involving [place]*04/02/2021 Paroxysmal atrial fibrillation (HCC) [I48.0] 04/03/2021 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 [facility] (FAMPWS) AFSHIN ZEE ([id number]) 1955 M Date Time Provider Department 02/03/25 [facility] During your visit today, we recorded the following information about you: Khris Gutierrez, DIANE 02/03/2025 12:16 PM Signed Pt's was calling in asking questions about when he needed to get his labs done that Dr Arroyo had ordered in January. I let her know he was to get those done closer to his April appointment. She verbalized understanding. She reports Pt got the Pregabalin done when he was in the group home. Khris Gutierrez RN Allergies As of Date: 02/03/2025 Noted Allergy Reaction LISINOPRIL 09/27/2016 7 - Swelling 18 - Angioedema Comments: Lip swelling after starting lisinopril. DOXYCYCLINE 12/11/2022 8 - GI Upset 14 - Other: See Comments Comments: GI upset (stomach ache/cramping/diarrhea ) and splotchy face SULFA (SULFONAMIDE ANTIBIOTICS) 03/11/2019 4 - Hives ZPAK (AZITHROMYCIN) 10/03/2018 4 - Hives Date Reviewed: 02/01/2025 Reviewed by: Robin Johansen MD - Fully Assessed Reason for Visit: Patient Question [[id number]] Prescriptions as of 02/03/2025 - baclofen 10 mg tablet Take 1 tablet by mouth three times a day. - busPIRone (BUSPAR) 15 mg tablet Take 1 tablet by mouth three times a day. - potassium chloride (K-TAB) 10 mEq tablet Take 2 tablets by mouth three times a day. - apixaban (ELIQUIS) 5 mg tab(s) Take 1 tablet by mouth every 12 hours. - escitalopram oxalate (LEXAPRO) 20 mg tablet Take 1 tablet by mouth once daily. - ezetimibe (ZETIA) 10 mg tablet Take 1 tablet by mouth once daily. - losartan (COZAAR) 25 mg tablet Take 1 tablet by mouth once daily. - pregabalin (LYRICA) 50 mg capsule Take 1 capsule by mouth two times a day for 180 days. - amiodarone (PACERONE) 100 mg tablet Take 1 tablet by mouth once daily. - amLODIPine (NORVASC) 10 mg tablet Take 1 tablet by mouth once daily. - divalproex DR (DEPAKOTE) 125 mg EC tablet Take 1 tablet by mouth two times a day. - atorvastatin (LIPITOR) 40 mg tablet Take 1 tablet by mouth once daily. - famotidine (PEPCID) 20 mg tablet Take 1 tablet by mouth once daily. - traZODone (DESYREL) 100 mg tablet Take 1 tablet by mouth daily at bedtime. - OXYGEN, HOME THERAPY, 4 L/min by Nasal Cannula route as directed. - fluticasone-umeclidin- vilanter (TRELEGY ELLIPTA) 100-62.5-25 mcg inhalation powder Inhale 1 puff as instructed once daily. - cetirizine (ZYRTEC) 10 mg tablet Take 1 tablet by mouth once daily. - clotrimazole-betametha sone (LOTRISONE) cream Apply to affected area two times a day. - albuterol HFA (PROVENTIL HFA, VENTOLIN HFA) 90 mcg/actuation inhaler Inhale 2 puffs as instructed every 4 hours as needed for wheezing/shortness of breath. - albuterol (PROVENTIL) 2.5 mg /3 mL (0.083 %) nebulizer solution Use 3 mL via nebulizer every 6 hours as needed for wheezing/shortness of breath. - Leg Brace misc 1 Each as directed. RIGHT LEG BRACE (AFO TYPE) - fluticasone (FLONASE) 50 mcg/actuation nasal spray Use 1 [place] in each nostril two times a day. Rinse mouth after use. - multivitamin tablet Take 1 tablet by mouth once daily. - LORazepam (ATIVAN) 1 mg tablet Take 1-2 tablets by mouth three times a day as needed for anxiety for up to 45 days. Take 1-2 pills three times a day - Blood Pressure Monitor kit 1 application twice daily. Measure patient for correct size. Patient needs cuff for left arm readings. - COMPOUNDED PRESCRIPTION Articulating AFO foot brace for right leg. Send to [employer]. Dx: I63.9 - COMPOUNDED PRESCRIPTION EMBER WALKER DX I63.9 weight 162 # Problem List As Of Date 02/03/2025 Noted Resolved Hyperlipidemia [E78.5] 06/06/2010 Elevated blood pressure [YDB2590] 06/06/2010 03/20/2019 Erectile dysfunction [N52.9] 06/06/2010 Cervicalgia [M54.2] 04/16/2016 Chronic right shoulder pain [M25.511, G89.29] 04/16/2016 Occlusion of left carotid artery [I65.22] 07/02/2016 Stroke (cerebrum) (HCC) [I63.9] Aneurysm (HCC) [I72.9] Essential hypertension [I10] 06/25/2017 Anxiety [F41.9] 09/04/2017 Chronic insomnia [F51.04] 04/04/2018 Right hemiplegia (HCC) [G81.91] 04/30/2018 Sinus bradycardia [R00.1] 03/20/2019 Dysphasia [R47.02] Coronary artery disease involving [place]*04/02/2021 Paroxysmal atrial fibrillation (HCC) [I48.0] 04/03/2021 Aphasia as late effect of cerebrovascular accid*05/10/2022 Bacterial pneumonia [J15.9] 11/17/2022 03/12/2023 Tracheostomy status (HCC) [Z93.0] 12/04/2022 02/26/2023 Respiratory failure, unspecified chronicity, un*03/07/2023 03/12/2023 Stage 3a chronic kidney disease (HCC) [N18.31] 03/07/2023 COPD with exacerbation (HCC) [J44.1] 03/12/2023 03/12/2023 Centrilobular emphysema (HCC) [J43.2] 03/12/2023 Former cigarette smoker [Z87.891] 03/12/2023 Stage 3 chronic kidney disease, unspecified whe*06/11/2023 Pr (more content not included)... Normal [facility] CNOVon 02-01-2025 CNOV Office Visit (CARDDANIEL ) AFSHIN ZEE ([id number]) 1955 M Date Time Provider Department 02/01/25 9:40 AM ROBIN JOHANSEN During your visit today, we recorded the following information about you: Pulse Respiration Blood pressure Weight 43/minute 16/minute 122/80 89.8 kg Height 1.778 m Robin Johansen MD 02/01/2025 12:09 PM Signed [facility] Cardiology (Yesika Mccoywjames Cardona) [address] [facility] [id number] OUTPATIENT VISIT DATE 02/01/2025 PRIMARY CARE PHYSICIAN: Jaci Arroyo [address] [place] [address] HISTORY OF PRESENT ILLNESS: Mr. Zee is a 69 year old gentleman with a history of coronary artery disease and prior coronary artery bypass grafting in October 2016 complicated by left hemispheric CVA. He has resulting weakness that is right-sided and dysphasia. He was accompanied to the office visit by his . Unfortunately, patient continues to have episodes of falls. The mostly are mechanical in nature. He is noncompliant with his walker all at home. He has not had symptoms concerning for CHF including PND, orthopnea, lower extremity edema. There has been no no current or symptoms concerning for palpitations or heart racing. 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 Kimbrough on 10/30/2016. SECONDARY PROCEDURES PERFORMED: 1. Cerebral angiography and stenting of the left subclavian artery performed by Dr. West on 11/02/2016. 2. Tracheostomy performed by Dr. Delgado on 11/07/2016. 3. Fluoroscopically guided placement of gastrostomy tube into the stomach performed on 11/07/2016. PAST MEDICAL HISTORY Diagnosis Date Acute cerebral infarction (HCC) left LEANN (acute kidney injury) Anemia Aneurysm Anxiety state Atrial fibrillation (HCC) 11/2016 Balanitis CAD (coronary artery disease) Carotid stenosis COPD (chronic obstructive pulmonary disease) (HCC) Dysphasia Emphysema lung (HCC) Epilepsy (HCC) History of blood transfusion 03/2023 Hypertension Hypoxia 03/2023 DARON (obstructive sleep apnea) PVD (peripheral vascular disease) Respiratory failure (HCC) hypoxic-ventilator dependent Stroke (cerebrum) ([facility] Tobacco abuse PAST SURGICAL HISTORY Procedure Laterality Date ANKLE SURGERY HX Right 08/07/2023 Dr. Kim. Right ankle ORIF due to fracture CABG CONSULT 10/30/2016 multi vessel COLONOSCOPY SCREENING 04/10/2023 EGD W/O RUST SPEC VARICIES INJ 04/11/2023 EGD W/O RUST SPEC VARICIES INJ 04/10/2023 HEART CATHETERIZATION 09/17/2016 PAST SURGICAL HISTORY OF 2017 Aneurysm and stent surgery related to stroke TRACHEOSTOMY HX SOCIAL HISTORY Social History Tobacco Use Smoking status: Former Current packs/day: 0.00 Average packs/day: 2.0 packs/day for 45.0 years (90.0 ttl pk-yrs) Types: Cigarettes Start date: 07/08/1971 Quit date: 07/08/2016 Years since quittin.5 Smokeless tobacco: Never Tobacco comments: 07/08/2016 Vaping Use Vaping status: Never Used Substance Use Topics Alcohol use: No Drug use: Never FAMILY HISTORY Problem Relation Age of Onset Heart Mother CO in her 70s, pacemaker Diabetes Mother Stroke Father other (AAA) Father other (CAD) Brother Hypertension Brother ALLERGIES: ALLERGIES Allergen Reactions Lisinopril Swelling, Angioedema Lip swelling after starting lisinopril. Doxycycline GI Upset, Other: See Comments GI upset (stomach ache/cramping/diarrhea ) and splotchy face Sulfa (Sulfonamide * Hives Zpak [Azithromycin] Hives MEDICATIONS: baclofen 10 mg tablet Take 1 tablet by mouth three times a day. busPIRone (BUSPAR) 15 mg tablet Take 1 tablet by mouth three times a day. potassium chloride (K-TAB) 10 mEq tablet Take 2 tablets by mouth three times a day. apixaban (ELIQUIS) 5 mg tab(s) Take 1 tablet by mouth every 12 hours. escitalopram oxalate (LEXAPRO) 20 mg tablet Take 1 tablet by mouth once daily. ezetimibe (ZETIA) 10 mg tablet Take 1 tablet by mouth once daily. losartan (COZAAR) 25 mg tablet Take 1 tablet by mouth once daily. metoprolol tartrate, short acting, (LOPRESSOR) 25 mg tablet Take 0.5 tablets by mouth two times a day. pregabalin (LYRICA) 50 mg capsule Take 1 capsule by mouth two times a day fo (more content not included)... Normal [facility] 01-14-2025 [facility] Office Visit ([facility] ) AFSHIN ZEE ([id number]) 1955 M Date Time Provider Department 01/14/25 2:20 PM JACI ARROYOWS During your visit today, we recorded the following information about you: Pulse Respiration Blood pressure Weight 52/minute 18/minute 124/74 87.1 kg Jaci Arroyo MD 01/14/2025 5:11 PM Signed Chief Complaint Patient presents with: group home discharge: [facility] [place] [facility] HPI Afshin Zee is a 69 year old male who presents here today for [facility] discharge follow up. Here with . [facility] d[facility] for frequent falls and respite care. Hx of stroke. He is going in for a re-evaluation next for PT/ST/OT. Needs an order to take there. Med list reviewed and updated. Past medical history, appointments, medications, allergies reviewed. Previous Medical History PAST MEDICAL HISTORY Diagnosis Date Acute cerebral infarction (HCC) left LEANN (acute kidney injury) Anemia Aneurysm Anxiety state Atrial fibrillation (HCC) 11/2016 Balanitis CAD (coronary artery disease) Carotid stenosis COPD (chronic obstructive pulmonary disease) (HCC) Dysphasia Emphysema lung (HCC) Epilepsy (HCC) History of blood transfusion 03/2023 Hypertension Hypoxia 03/2023 DARON (obstructive sleep apnea) PVD (peripheral vascular disease) Respiratory failure (HCC) hypoxic-ventilator dependent Stroke (cerebrum) (HCC) Tobacco abuse Previous Surgical History PAST SURGICAL HISTORY Procedure Laterality Date ANKLE SURGERY HX Right 08/07/2023 Dr. Kim. Right ankle ORIF due to fracture CABG CONSULT 10/30/2016 multi vessel COLONOSCOPY SCREENING 04/10/2023 EGD W/O RUST SPEC VARICIES INJ 04/11/2023 EGD W/O RUST SPEC VARICIES INJ 04/10/2023 HEART CATHETERIZATION 09/17/2016 PAST SURGICAL HISTORY OF 2017 Aneurysm and stent surgery related to stroke TRACHEOSTOMY HX Family History FAMILY HISTORY Problem Relation Age of Onset Heart Mother CO in her 70s, pacemaker Diabetes Mother Stroke Father other (AAA) Father other (CAD) Brother Hypertension Brother Patient Allergies ALLERGIES Allergen Reactions Lisinopril Swelling, Angioedema Lip swelling after starting lisinopril. Doxycycline GI Upset, Other: See Comments GI upset (stomach ache/cramping/diarrhea ) and splotchy face Sulfa (Sulfonamide * Hives Zpak [Azithromycin] Hives Current Medications Current Outpatient Medications on File Prior to Visit Medication Sig cetirizine (ZYRTEC) 10 mg tablet Take 1 tablet by mouth once daily. divalproex DR (DEPAKOTE) 125 mg EC tablet Take 125 mg by mouth two times a day. furosemide (LASIX) 20 mg tablet Take 20 mg by mouth once daily. pregabalin (LYRICA) 50 mg capsule Take 1 capsule by mouth two times a day for 180 days. Leg Brace misc 1 Each as directed. RIGHT LEG BRACE (AFO TYPE) SPIRIVA RESPIMAT 2.5 mcg/actuation inhaler Inhale 2 Puffs as instructed once daily. (Patient not taking: Reported on 11/10/2024) fluticasone-umeclidin- vilanter (TRELEGY ELLIPTA) 100-62.5-25 mcg inhalation powder Inhale 1 Puff as instructed once daily. metoprolol tartrate, short acting, (LOPRESSOR) 25 mg tablet Take 0.5 tablets by mouth two times a day. fluticasone (FLONASE) 50 mcg/actuation nasal spray Use 1 [place] in each nostril two times a day. Rinse mouth after use. losartan (COZAAR) 25 mg tablet Take 1 tablet by mouth once daily. baclofen 10 mg tablet Take 1 tablet by mouth three times a day. amLODIPine (NORVASC) 10 mg tablet Take 0.5 tablets by mouth two times a day. Take 1/2 tablet twice daily traZODone (DESYREL) 100 mg tablet Take 1 tablet by mouth daily at bedtime. albuterol HFA (PROVENTIL HFA, VENTOLIN HFA) 90 mcg/actuation inhaler INHALE 2 PUFFS INTO THE LUNGS EVERY 4 HOURS NEEDED multivitamin tablet Take 1 tablet by mouth once daily. famotidine (PEPCID) 20 mg tablet Take 20 mg by mouth once daily. hydroCHLOROthiazide 12.5 mg tablet Take 1 tablet by mouth every morning. (Patient not taking: Reported on 10/06/2024) clotrimazole-betametha sone (LOTRISONE) cream Apply to affected area two times a day. OXYGEN, HOME THERAPY, 4 L/min by Nasal Cannula route as directed. busPIRone (BUSPAR) 15 mg tablet take 1 tablet by mouth three times a day LORazepam (ATIVAN) 1 mg tablet Take 1-2 tablets by mouth three times a day as needed for anxiety for up to 45 days. Take 1-2 pills three times a day potassium chloride (K-TAB) 10 mEq tablet Take 2 tablets by mouth three times a day. albuterol (PROVENTIL) 2.5 mg /3 mL (0.083 %) nebulizer solution INHALE 1 VIAL VIA NEBULIZER EVERY 4 HOURS NEEDED FOR WHEEZING/SHORTNESS OF BREATH. USE OVER 5-15 MINUTES clopidogrel (PLAVIX) 75 mg tablet Take 75 mg by mouth once daily. (Patient not taking: Reported on 10/06/2024) ezetimibe (ZETIA) 10 mg tablet Take 1 tablet by mouth once daily. amiodarone (more content not included)... Normal [facility]) AFSHIN ZEE ([id number]) 1955 M Date Time Provider Department 12/26/24 JACI ARROYO [facility] During your visit today, we recorded the following information about you: Monica Cruz MA 12/26/2024 9:45 AM Signed [facility] sent fax asking for Medical Records on pt. Date of service needed is 07/30/24 regarding his incontinence. I do not see that pt was seen in office that day. Please review. [place] fax # [phone] JIMI Jay Rilee, MA 01/07/2025 10:57 AM Signed Office received new CMN for incontinence supplies. Routed to PCP's desk. Once complete fax back to [phone]. JIMI Blas Rilee, MA 01/07/2025 12:04 PM Signed CMN form has been completed and faxed back to information below. Rachel Buckley MA Allergies As of Date: 12/26/2024 Noted Allergy Reaction LISINOPRIL 09/27/2016 7 - Swelling 18 - Angioedema Comments: Lip swelling after starting lisinopril. DOXYCYCLINE 12/11/2022 8 - GI Upset 14 - Other: See Comments Comments: GI upset (stomach ache/cramping/diarrhea ) and splotchy face SULFA (SULFONAMIDE ANTIBIOTICS) 03/11/2019 4 - Hives ZPAK (AZITHROMYCIN) 10/03/2018 4 - Hives Date Reviewed: 12/03/2024 Reviewed by: Christina Brooks MA - Fully Assessed Reason for Visit: Forms [913] Cmt: Roxanne for medical record request Prescriptions as of 01/07/2025 - cetirizine (ZYRTEC) 10 mg tablet Take 1 tablet by mouth once daily. - divalproex DR (DEPAKOTE) 125 mg EC tablet Take 125 mg by mouth two times a day. - furosemide (LASIX) 20 mg tablet Take 20 mg by mouth once daily. - pregabalin (LYRICA) 50 mg capsule Take 1 capsule by mouth two times a day for 180 days. - Leg Brace misc 1 Each as directed. RIGHT LEG BRACE (AFO TYPE) - SPIRIVA RESPIMAT 2.5 mcg/actuation inhaler Inhale 2 Puffs as instructed once daily. - fluticasone-umeclidin- vilanter (TRELEGY ELLIPTA) 100-62.5-25 mcg inhalation powder Inhale 1 Puff as instructed once daily. - metoprolol tartrate, short acting, (LOPRESSOR) 25 mg tablet Take 0.5 tablets by mouth two times a day. - fluticasone (FLONASE) 50 mcg/actuation nasal spray Use 1 [place] in each nostril two times a day. Rinse mouth after use. - losartan (COZAAR) 25 mg tablet Take 1 tablet by mouth once daily. - baclofen 10 mg tablet Take 1 tablet by mouth three times a day. - amLODIPine (NORVASC) 10 mg tablet Take 0.5 tablets by mouth two times a day. Take 1/2 tablet twice daily - traZODone (DESYREL) 100 mg tablet Take 1 tablet by mouth daily at bedtime. - albuterol HFA (PROVENTIL HFA, VENTOLIN HFA) 90 mcg/actuation inhaler INHALE 2 PUFFS INTO THE LUNGS EVERY 4 HOURS NEEDED - multivitamin tablet Take 1 tablet by mouth once daily. - famotidine (PEPCID) 20 mg tablet Take 20 mg by mouth once daily. - hydroCHLOROthiazide 12.5 mg tablet Take 1 tablet by mouth every morning. - clotrimazole-betametha sone (LOTRISONE) cream Apply to affected area two times a day. - OXYGEN, HOME THERAPY, 4 L/min by Nasal Cannula route as directed. - busPIRone (BUSPAR) 15 mg tablet take 1 tablet by mouth three times a day - LORazepam (ATIVAN) 1 mg tablet Take 1-2 tablets by mouth three times a day as needed for anxiety for up to 45 days. Take 1-2 pills three times a day - potassium chloride (K-TAB) 10 mEq tablet Take 2 tablets by mouth three times a day. - albuterol (PROVENTIL) 2.5 mg /3 mL (0.083 %) nebulizer solution INHALE 1 VIAL VIA NEBULIZER EVERY 4 HOURS NEEDED FOR WHEEZING/SHORTNESS OF BREATH. USE OVER 5-15 MINUTES - clopidogrel (PLAVIX) 75 mg tablet Take 75 mg by mouth once daily. - ezetimibe (ZETIA) 10 mg tablet Take 1 tablet by mouth once daily. - amiodarone (PACERONE) 100 mg tablet TAKE 1 TABLET BY MOUTH ONCE DAILY *DO NOT TAKE IF HEART RATE IS LESS THAN 40* - atorvastatin (LIPITOR) 40 mg tablet take 1 tablet by mouth once daily - escitalopram oxalate (LEXAPRO) 20 mg tablet take 1 tablet by mouth once daily - apixaban (ELIQUIS) 5 mg tab(s) take 1 tablet by mouth twice daily - acetaminophen (TYLENOL EXTRA STRENGTH) 500 mg tablet Take 2 tablets by mouth three times a day as needed for pain. - Blood Pressure Monitor kit 1 application twice daily. Measure patient for correct size. Patient needs cuff for left arm readings. - COMPOUNDED PRESCRIPTION Articulating AFO foot brace for right leg. Send to [employer]. 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 Normal [facility]03[facility]2024 [facility] AF[facility] ([id number]) 1955 M Date Time Provider Department 12/03/24 1:20 PM CONSUELO FAROOQ During your visit today, we recorded the following information about you: Pulse Blood pressure Weight 59/minute 121/54 88.5 kg Consuelo Farooq APRN.OPERATIONS LABEL CLERK 12/03/2024 1:02 PM Signed Chief Complaint Patient presents with: Cough Wheezing HPI Afshin Zee is a 69 year old male who presents here today for Above Complaints.. Patient presents for cough and wheezing for 3-4 days. Past medical history, appointments, medications, allergies reviewed. Previous Medical History PAST MEDICAL HISTORY Diagnosis Date Acute cerebral infarction (HCC) left LEANN (acute kidney injury) Anemia Aneurysm Anxiety state Atrial fibrillation (HCC) 11/2016 Balanitis CAD (coronary artery disease) Carotid stenosis COPD (chronic obstructive pulmonary disease) (HCC) Dysphasia Emphysema lung (HCC) Epilepsy (HCC) History of blood transfusion 03/2023 Hypertension Hypoxia 03/2023 DARON (obstructive sleep apnea) PVD (peripheral vascular disease) Respiratory failure (HCC) hypoxic-ventilator dependent Stroke (cerebrum) (HCC) Tobacco abuse Previous Surgical History PAST SURGICAL HISTORY Procedure Laterality Date ANKLE SURGERY HX Right 08/07/2023 Dr. Kim. Right ankle ORIF due to fracture CABG CONSULT 10/30/2016 multi vessel COLONOSCOPY SCREENING 04/10/2023 EGD W/O BRS SPEC VARICIES INJ 04/11/2023 EGD W/O BRSH SPEC VARICIES INJ 04/10/2023 HEART CATHETERIZATION 09/17/2016 PAST SURGICAL HISTORY OF 2017 Aneurysm and stent surgery related to stroke TRACHEOSTOMY HX Family History FAMILY HISTORY Problem Relation Age of Onset Heart Mother CO in her 70s, pacemaker Diabetes Mother Stroke Father other (AAA) Father other (CAD) Brother Hypertension Brother Patient Allergies ALLERGIES Allergen Reactions Lisinopril Swelling, Angioedema Lip swelling after starting lisinopril. Doxycycline GI Upset, Other: See Comments GI upset (stomach ache/cramping/diarrhea ) and splotchy face Sulfa (Sulfonamide * Hives Zpak [Azithromycin] Hives Current Medications Current Outpatient Medications on File Prior to Visit Medication Sig divalproex DR (DEPAKOTE) 125 mg EC tablet Take 125 mg by mouth two times a day. furosemide (LASIX) 20 mg tablet Take 20 mg by mouth once daily. pregabalin (LYRICA) 50 mg capsule Take 1 capsule by mouth two times a day for 180 days. Leg Brace misc 1 Each as directed. RIGHT LEG BRACE (AFO TYPE) SPIRIVA RESPIMAT 2.5 mcg/actuation inhaler Inhale 2 Puffs as instructed once daily. (Patient not taking: Reported on 11/10/2024) fluticasone-umeclidin- vilanter (TRELEGY ELLIPTA) 100-62.5-25 mcg inhalation powder Inhale 1 Puff as instructed once daily. metoprolol tartrate, short acting, (LOPRESSOR) 25 mg tablet Take 0.5 tablets by mouth two times a day. fluticasone (FLONASE) 50 mcg/actuation nasal spray Use 1 [place] in each nostril two times a day. Rinse mouth after use. losartan (COZAAR) 25 mg tablet Take 1 tablet by mouth once daily. baclofen 10 mg tablet Take 1 tablet by mouth three times a day. amLODIPine (NORVASC) 10 mg tablet Take 0.5 tablets by mouth two times a day. Take 1/2 tablet twice daily traZODone (DESYREL) 100 mg tablet Take 1 tablet by mouth daily at bedtime. albuterol HFA (PROVENTIL HFA, VENTOLIN HFA) 90 mcg/actuation inhaler INHALE 2 PUFFS INTO THE LUNGS EVERY 4 HOURS NEEDED multivitamin tablet Take 1 tablet by mouth once daily. famotidine (PEPCID) 20 mg tablet Take 20 mg by mouth once daily. hydroCHLOROthiazide 12.5 mg tablet Take 1 tablet by mouth every morning. (Patient not taking: Reported on 10/06/2024) clotrimazole-betametha sone (LOTRISONE) cream Apply to affected area two times a day. OXYGEN, HOME THERAPY, 4 L/min by Nasal Cannula route as directed. busPIRone (BUSPAR) 15 mg tablet take 1 tablet by mouth three times a day LORazepam (ATIVAN) 1 mg tablet Take 1-2 tablets by mouth three times a day as needed for anxiety for up to 45 days. Take 1-2 pills three times a day potassium chloride (K-TAB) 10 mEq tablet Take 2 tablets by mouth three times a day. albuterol (PROVENTIL) 2.5 mg /3 mL (0.083 %) nebulizer solution INHALE 1 VIAL VIA NEBULIZER EVERY 4 HOURS NEEDED FOR WHEEZING/SHORTNESS OF BREATH. USE OVER 5-15 MINUTES clopidogrel (PLAVIX) 75 mg tablet Take 75 mg by mouth once daily. (Patient not taking: Reported on 10/06/2024) ezetimibe (ZETIA) 10 mg tablet Take 1 tablet by mouth once daily. ferrous sulfate (FEROSUL) 325 mg (65 mg iron) tablet Take 1 tablet by mouth two times a day. amiodarone (PACERONE) 100 mg tablet TAKE 1 TABLET BY MOUTH ONCE DAILY *DO NOT TAKE IF HEART RATE IS LESS THAN 40* atorvastatin (LIPITOR) 40 mg tablet take 1 tablet by mouth once daily escitalopram oxalate (LEXAPRO) 20 mg (more content not included)... Normal [facility] 12-03-2024 [facility] Telephone ([facility]) AFSHIN ZEE ([id number]) 1955 M Date Time Provider Department 12/03/24 JACI ARROYO [facility] During your visit today, we recorded the following information about you: Amaya Kessler, DIANE 12/03/2024 8:20 AM Signed Patient's Eli calling in. Reports patient is home and has had a deep cough and sinus congestion x 1 week. Possible wheezing/rattling. She is requesting pt be evaluated today, if possible. Reports pt has COPD and is more prone to respiratory infections. Denies pt having fever, N/V/D, chest pain or SOB. Offered available slots for today and is particular about who she wants pt to see. Appt made for pt today. Amaya Kessler RN Allergies As of Date: 12/03/2024 Noted Allergy Reaction LISINOPRIL 09/27/2016 7 - Swelling 18 - Angioedema Comments: Lip swelling after starting lisinopril. DOXYCYCLINE 12/11/2022 8 - GI Upset 14 - Other: See Comments Comments: GI upset (stomach ache/cramping/diarrhea ) and splotchy face SULFA (SULFONAMIDE ANTIBIOTICS) 03/11/2019 4 - Hives ZPAK (AZITHROMYCIN) 10/03/2018 4 - Hives Date Reviewed: 11/10/2024 Reviewed by: Barby Soliman OCCA - Fully Assessed Reason for Visit: Patient Update [1234] Prescriptions as of 12/03/2024 - divalproex DR (DEPAKOTE) 125 mg EC tablet Take 125 mg by mouth two times a day. - furosemide (LASIX) 20 mg tablet Take 20 mg by mouth once daily. - pregabalin (LYRICA) 50 mg capsule Take 1 capsule by mouth two times a day for 180 days. - Leg Brace misc 1 Each as directed. RIGHT LEG BRACE (AFO TYPE) - SPIRIVA RESPIMAT 2.5 mcg/actuation inhaler Inhale 2 Puffs as instructed once daily. - fluticasone-umeclidin- vilanter (TRELEGY ELLIPTA) 100-62.5-25 mcg inhalation powder Inhale 1 Puff as instructed once daily. - metoprolol tartrate, short acting, (LOPRESSOR) 25 mg tablet Take 0.5 tablets by mouth two times a day. - fluticasone (FLONASE) 50 mcg/actuation nasal spray Use 1 [place] in each nostril two times a day. Rinse mouth after use. - losartan (COZAAR) 25 mg tablet Take 1 tablet by mouth once daily. - baclofen 10 mg tablet Take 1 tablet by mouth three times a day. - amLODIPine (NORVASC) 10 mg tablet Take 0.5 tablets by mouth two times a day. Take 1/2 tablet twice daily - traZODone (DESYREL) 100 mg tablet Take 1 tablet by mouth daily at bedtime. - albuterol HFA (PROVENTIL HFA, VENTOLIN HFA) 90 mcg/actuation inhaler INHALE 2 PUFFS INTO THE LUNGS EVERY 4 HOURS NEEDED - multivitamin tablet Take 1 tablet by mouth once daily. - famotidine (PEPCID) 20 mg tablet Take 20 mg by mouth once daily. - hydroCHLOROthiazide 12.5 mg tablet Take 1 tablet by mouth every morning. - clotrimazole-betametha sone (LOTRISONE) cream Apply to affected area two times a day. - OXYGEN, HOME THERAPY, 4 L/min by Nasal Cannula route as directed. - busPIRone (BUSPAR) 15 mg tablet take 1 tablet by mouth three times a day - LORazepam (ATIVAN) 1 mg tablet Take 1-2 tablets by mouth three times a day as needed for anxiety for up to 45 days. Take 1-2 pills three times a day - potassium chloride (K-TAB) 10 mEq tablet Take 2 tablets by mouth three times a day. - albuterol (PROVENTIL) 2.5 mg /3 mL (0.083 %) nebulizer solution INHALE 1 VIAL VIA NEBULIZER EVERY 4 HOURS NEEDED FOR WHEEZING/SHORTNESS OF BREATH. USE OVER 5-15 MINUTES - clopidogrel (PLAVIX) 75 mg tablet Take 75 mg by mouth once daily. - ezetimibe (ZETIA) 10 mg tablet Take 1 tablet by mouth once daily. - ferrous sulfate (FEROSUL) 325 mg (65 mg iron) tablet Take 1 tablet by mouth two times a day. - amiodarone (PACERONE) 100 mg tablet TAKE 1 TABLET BY MOUTH ONCE DAILY *DO NOT TAKE IF HEART RATE IS LESS THAN 40* - atorvastatin (LIPITOR) 40 mg tablet take 1 tablet by mouth once daily - escitalopram oxalate (LEXAPRO) 20 mg tablet take 1 tablet by mouth once daily - apixaban (ELIQUIS) 5 mg tab(s) take 1 tablet by mouth twice daily - acetaminophen (TYLENOL EXTRA STRENGTH) 500 mg tablet Take 2 tablets by mouth three times a day as needed for pain. - Blood Pressure Monitor kit 1 application twice daily. Measure patient for correct size. Patient needs cuff for left arm readings. - COMPOUNDED PRESCRIPTION Articulating AFO foot brace for right leg. Send to [employer]. Dx: I63.9 - COMPOUNDED PRESCRIPTION EMBER WALKER DX I63.9 weight 162 # Problem List As Of Date 12/03/2024 Noted Resolved Hyperlipidemia [E78.5] 06/06/2010 Elevated blood pressure [ILI5887] 06/06/2010 03/20/2019 Erectile dysfunction [N52.9] 06/06/2010 Cervicalgia [M54.2] 04/16/2016 Chronic right shoulder pain [M25.511, G89.29] 04/16/2016 Occlusion of left carotid artery [I65.22] 07/02/2016 Stroke (cerebrum) (HCC) [I63.9] Aneurysm (HCC) [I72.9] Essential hypertension [I10] 06/25/2017 Anxiety [F41.9] 09/04/2017 Chronic insomnia [F51.04] 04/04/2018 Right he (more content not included)... [facility] AFSHIN [facility]EE ([id number]) 1955 M Date Time Provider Department 12/02/24 [facility] During your visit today, we recorded the following information about you: Jayde Laughlin RN 12/02/2024 9:03 AM Signed Cathy from [facility] calls and reports that [facility] [place] [facility] permanent placement. Jayde Laughlin RN Allergies As of Date: 12/02/2024 Noted Allergy Reaction LISINOPRIL 09/27/2016 7 - Swelling 18 - Angioedema Comments: Lip swelling after starting lisinopril. DOXYCYCLINE 12/11/2022 8 - GI Upset 14 - Other: See Comments Comments: GI upset (stomach ache/cramping/diarrhea ) and splotchy face SULFA (SULFONAMIDE ANTIBIOTICS) 03/11/2019 4 - Hives ZPAK (AZITHROMYCIN) 10/03/2018 4 - Hives Date Reviewed: 11/10/2024 Reviewed by: Barby Soliman OCCA - Fully Assessed Reason for Visit: Patient Update [1234] Prescriptions as of 12/02/2024 - divalproex DR (DEPAKOTE) 125 mg EC tablet Take 125 mg by mouth two times a day. - furosemide (LASIX) 20 mg tablet Take 20 mg by mouth once daily. - pregabalin (LYRICA) 50 mg capsule Take 1 capsule by mouth two times a day for 180 days. - Leg Brace misc 1 Each as directed. RIGHT LEG BRACE (AFO TYPE) - SPIRIVA RESPIMAT 2.5 mcg/actuation inhaler Inhale 2 Puffs as instructed once daily. - fluticasone-umeclidin- vilanter (TRELEGY ELLIPTA) 100-62.5-25 mcg inhalation powder Inhale 1 Puff as instructed once daily. - metoprolol tartrate, short acting, (LOPRESSOR) 25 mg tablet Take 0.5 tablets by mouth two times a day. - fluticasone (FLONASE) 50 mcg/actuation nasal spray Use 1 [place] in each nostril two times a day. Rinse mouth after use. - losartan (COZAAR) 25 mg tablet Take 1 tablet by mouth once daily. - baclofen 10 mg tablet Take 1 tablet by mouth three times a day. - amLODIPine (NORVASC) 10 mg tablet Take 0.5 tablets by mouth two times a day. Take 1/2 tablet twice daily - traZODone (DESYREL) 100 mg tablet Take 1 tablet by mouth daily at bedtime. - albuterol HFA (PROVENTIL HFA, VENTOLIN HFA) 90 mcg/actuation inhaler INHALE 2 PUFFS INTO THE LUNGS EVERY 4 HOURS NEEDED - multivitamin tablet Take 1 tablet by mouth once daily. - famotidine (PEPCID) 20 mg tablet Take 20 mg by mouth once daily. - hydroCHLOROthiazide 12.5 mg tablet Take 1 tablet by mouth every morning. - clotrimazole-betametha sone (LOTRISONE) cream Apply to affected area two times a day. - OXYGEN, HOME THERAPY, 4 L/min by Nasal Cannula route as directed. - busPIRone (BUSPAR) 15 mg tablet take 1 tablet by mouth three times a day - LORazepam (ATIVAN) 1 mg tablet Take 1-2 tablets by mouth three times a day as needed for anxiety for up to 45 days. Take 1-2 pills three times a day - potassium chloride (K-TAB) 10 mEq tablet Take 2 tablets by mouth three times a day. - albuterol (PROVENTIL) 2.5 mg /3 mL (0.083 %) nebulizer solution INHALE 1 VIAL VIA NEBULIZER EVERY 4 HOURS NEEDED FOR WHEEZING/SHORTNESS OF BREATH. USE OVER 5-15 MINUTES - clopidogrel (PLAVIX) 75 mg tablet Take 75 mg by mouth once daily. - ezetimibe (ZETIA) 10 mg tablet Take 1 tablet by mouth once daily. - ferrous sulfate (FEROSUL) 325 mg (65 mg iron) tablet Take 1 tablet by mouth two times a day. - amiodarone (PACERONE) 100 mg tablet TAKE 1 TABLET BY MOUTH ONCE DAILY *DO NOT TAKE IF HEART RATE IS LESS THAN 40* - atorvastatin (LIPITOR) 40 mg tablet take 1 tablet by mouth once daily - escitalopram oxalate (LEXAPRO) 20 mg tablet take 1 tablet by mouth once daily - apixaban (ELIQUIS) 5 mg tab(s) take 1 tablet by mouth twice daily - acetaminophen (TYLENOL EXTRA STRENGTH) 500 mg tablet Take 2 tablets by mouth three times a day as needed for pain. - Blood Pressure Monitor kit 1 application twice daily. Measure patient for correct size. Patient needs cuff for left arm readings. - COMPOUNDED PRESCRIPTION Articulating AFO foot brace for right leg. Send to [employer]. Dx: I63.9 - COMPOUNDED PRESCRIPTION EMBER WALKER DX I63.9 weight 162 # Problem List As Of Date 12/02/2024 Noted Resolved Hyperlipidemia [E78.5] 06/06/2010 Elevated blood pressure [OBU5329] 06/06/2010 03/20/2019 Erectile dysfunction [N52.9] 06/06/2010 Cervicalgia [M54.2] 04/16/2016 Chronic right shoulder pain [M25.511, G89.29] 04/16/2016 Occlusion of left carotid artery [I65.22] 07/02/2016 Stroke (cerebrum) (HCC) [I63.9] Aneurysm (HCC) [I72.9] Essential hypertension [I10] 06/25/2017 Anxiety [F41.9] 09/04/2017 Chronic insomnia [F51.04] 04/04/2018 Right hemiplegia (HCC) [G81.91] 04/30/2018 Bradycardia [R00.1] 03/20/2019 Dysphasia [R47.02] Coronary artery disease involving [place] matos*04/02/2021 Paroxysmal atrial fibrillation (HCC) [I48.0] 04/03/2021 Aphasia as late effect of cerebrovascular accid*05/10/2022 Bacterial pneumonia [J15.9] more content not included)... [facility]FAM[facility] AFSHIN ZEE ([id number]) 1955 M Date Time Provider Department 11/27/24 [facility] During your visit today, we recorded the following information about you: Milan Brunson, RN 11/27/2024 3:13 PM Signed Jacky Santos- phoned in with , Eli, on another line. Reports pt needs pcp to do PA on Power Wheel Chair with gears on the left side. Pt is only able to use his left side due to stroke. Reports patient is now wheel chair bound and is living permanent at [facility] in [place]. Please fax PA to attn: [employer], [employer] [place]. . Plan ID # [id number]. Medicaid # [id number]. Phone # for [facility]: [phone] It will take 14 calendar days for PA to get approved. Pt weighs 197# and is 5'10 tall. DME's to send order to: [employer]. . In [place], [place] Or: [email or web address] has 3 locations: all in [place]: 2 in [place]. Or: 1 in [place]. These DME's will ship the power wheelchair to [facility]. Shefali Lyles LPN 11/27/2024 3:21 PM Signed Any PA would come from the DME company, not the office the DME company has the codes that insurance would need, not the office. Milan Brunson RN 11/28/2024 11:57 AM Signed Will need Rx sent to DME Allergies As of Date: 11/27/2024 Noted Allergy Reaction LISINOPRIL 09/27/2016 7 - Swelling 18 - Angioedema Comments: Lip swelling after starting lisinopril. DOXYCYCLINE 12/11/2022 8 - GI Upset 14 - Other: See Comments Comments: GI upset (stomach ache/cramping/diarrhea ) and splotchy face SULFA (SULFONAMIDE ANTIBIOTICS) 03/11/2019 4 - Hives ZPAK (AZITHROMYCIN) 10/03/2018 4 - Hives Date Reviewed: 11/10/2024 Reviewed by: Barby Soliman OCCA - Fully Assessed Reason for Visit: Power Wheel Chair [Other] Prescriptions as of 01/16/2025 - baclofen 10 mg tablet Take 1 tablet by mouth three times a day. - busPIRone (BUSPAR) 15 mg tablet Take 1 tablet by mouth three times a day. - potassium chloride (K-TAB) 10 mEq tablet Take 2 tablets by mouth three times a day. - apixaban (ELIQUIS) 5 mg tab(s) Take 1 tablet by mouth every 12 hours. - escitalopram oxalate (LEXAPRO) 20 mg tablet Take 1 tablet by mouth once daily. - ezetimibe (ZETIA) 10 mg tablet Take 1 tablet by mouth once daily. - losartan (COZAAR) 25 mg tablet Take 1 tablet by mouth once daily. - metoprolol tartrate, short acting, (LOPRESSOR) 25 mg tablet Take 0.5 tablets by mouth two times a day. - pregabalin (LYRICA) 50 mg capsule Take 1 capsule by mouth two times a day for 180 days. - amiodarone (PACERONE) 100 mg tablet Take 1 tablet by mouth once daily. - amLODIPine (NORVASC) 10 mg tablet Take 1 tablet by mouth once daily. - divalproex DR (DEPAKOTE) 125 mg EC tablet Take 1 tablet by mouth two times a day. - atorvastatin (LIPITOR) 40 mg tablet Take 1 tablet by mouth once daily. - famotidine (PEPCID) 20 mg tablet Take 1 tablet by mouth once daily. - traZODone (DESYREL) 100 mg tablet Take 1 tablet by mouth daily at bedtime. - OXYGEN, HOME THERAPY, 4 L/min by Nasal Cannula route as directed. - fluticasone-umeclidin- vilanter (TRELEGY ELLIPTA) 100-62.5-25 mcg inhalation powder Inhale 1 puff as instructed once daily. - cetirizine (ZYRTEC) 10 mg tablet Take 1 tablet by mouth once daily. - clotrimazole-betametha sone (LOTRISONE) cream Apply to affected area two times a day. - albuterol HFA (PROVENTIL HFA, VENTOLIN HFA) 90 mcg/actuation inhaler Inhale 2 puffs as instructed every 4 hours as needed for wheezing/shortness of breath. - albuterol (PROVENTIL) 2.5 mg /3 mL (0.083 %) nebulizer solution Use 3 mL via nebulizer every 6 hours as needed for wheezing/shortness of breath. - Leg Brace misc 1 Each as directed. RIGHT LEG BRACE (AFO TYPE) - fluticasone (FLONASE) 50 mcg/actuation nasal spray Use 1 [place] in each nostril two times a day. Rinse mouth after use. - multivitamin tablet Take 1 tablet by mouth once daily. - LORazepam (ATIVAN) 1 mg tablet Take 1-2 tablets by mouth three times a day as needed for anxiety for up to 45 days. Take 1-2 pills three times a day - Blood Pressure Monitor kit 1 application twice daily. Measure patient for correct size. Patient needs cuff for left arm readings. - COMPOUNDED PRESCRIPTION Articulating AFO foot brace for right leg. Send to [employer]. Dx: I63.9 - COMPOUNDED PRESCRIPTION EMBER WALKER DX I63.9 weight 162 # Problem List As Of Date 11/27/2024 Noted Resolved Hyperlipidemia [E78.5] 06/06/2010 Elevated blood pressure [OXB9146] 06/06/2010 03/20/2019 Erectile dysfunction [N52.9] 06/06/2010 Cervicalgia [M54.2] 04/16/2016 Chronic right shoulder pain [M25.511, G89.29] 04/16/2016 Occlusion of left carotid artery [I65.22] 07/02/2016 Stroke (cerebrum) (HCC) [I63.9] Aneurysm (HCC (more content not included)... Normal [facility] CNOVon 11-10-2024 CNOV Office Visit (VASSWS ) AFSHIN ZEE ([id number]) 1955 M Date Time Provider Department 11/10/24 4:00 PM DEANNE CRUZ VASSWS During your visit today, we recorded the following information about you: Pulse Blood pressure 50/minute 121/67 Deanne Cruz DO 11/20/2024 12:55 PM Signed [facility] [place] DEPARTMENT OF VASCULAR SURGERY OUTPATIENT VISIT TYPE ESTABLISHED PRIMARY CARE PHYSICIAN: Jaci Arroyo MD HISTORY OF PRESENT ILLNESS: Mr. Zee is a 69 year old male who presents today for a vascular surgery follow-up visit for carotid artery duplex. He is currently in a nursing facility. No new focal deficits. He has aphasia from previous stroke PAST MEDICAL HISTORY Diagnosis Date Acute cerebral infarction (HCC) left LEANN (acute kidney injury) Anemia Aneurysm Anxiety state Atrial fibrillation (HCC) 11/2016 Balanitis CAD (coronary artery disease) Carotid stenosis COPD (chronic obstructive pulmonary disease) (HCC) Dysphasia Emphysema lung (HCC) Epilepsy (HCC) History of blood transfusion 03/2023 Hypertension Hypoxia 03/2023 DARON (obstructive sleep apnea) PVD (peripheral vascular disease) Respiratory failure (HCC) hypoxic-ventilator dependent Stroke (cerebrum) (HCC) Tobacco abuse PAST SURGICAL HISTORY Procedure Laterality Date ANKLE SURGERY HX Right 08/07/2023 Dr. Kim. Right ankle ORIF due to fracture CABG CONSULT 10/30/2016 multi vessel COLONOSCOPY SCREENING 04/10/2023 EGD W/O RUST SPEC VARICIES INJ 04/11/2023 EGD W/O RUST SPEC VARICIES INJ 04/10/2023 HEART CATHETERIZATION 09/17/2016 PAST SURGICAL HISTORY OF 2017 Aneurysm and stent surgery related to stroke TRACHEOSTOMY HX SOCIAL HISTORY Social History Tobacco Use Smoking status: Former Current packs/day: 0.00 Average packs/day: 2.0 packs/day for 45.0 years (90.0 ttl pk-yrs) Types: Cigarettes Start date: 07/08/1971 Quit date: 07/08/2016 Years since quittin.3 Smokeless tobacco: Never Tobacco comments: 07/08/2016 Vaping Use Vaping status: Never Used Substance Use Topics Alcohol use: No Drug use: Never MEDICATIONS: divalproex DR (DEPAKOTE) 125 mg EC tablet Take 125 mg by mouth two times a day. furosemide (LASIX) 20 mg tablet Take 20 mg by mouth once daily. pregabalin (LYRICA) 50 mg capsule Take 1 capsule by mouth two times a day for 180 days. fluticasone-umeclidin- vilanter (TRELEGY ELLIPTA) 100-62.5-25 mcg inhalation powder Inhale 1 Puff as instructed once daily. metoprolol tartrate, short acting, (LOPRESSOR) 25 mg tablet Take 0.5 tablets by mouth two times a day. fluticasone (FLONASE) 50 mcg/actuation nasal spray Use 1 [place] in each nostril two times a day. Rinse mouth after use. losartan (COZAAR) 25 mg tablet Take 1 tablet by mouth once daily. baclofen 10 mg tablet Take 1 tablet by mouth three times a day. amLODIPine (NORVASC) 10 mg tablet Take 0.5 tablets by mouth two times a day. Take 1/2 tablet twice daily traZODone (DESYREL) 100 mg tablet Take 1 tablet by mouth daily at bedtime. albuterol HFA (PROVENTIL HFA, VENTOLIN HFA) 90 mcg/actuation inhaler INHALE 2 PUFFS INTO THE LUNGS EVERY 4 HOURS NEEDED multivitamin tablet Take 1 tablet by mouth once daily. famotidine (PEPCID) 20 mg tablet Take 20 mg by mouth once daily. busPIRone (BUSPAR) 15 mg tablet take 1 tablet by mouth three times a day potassium chloride (K-TAB) 10 mEq tablet Take 2 tablets by mouth three times a day. albuterol (PROVENTIL) 2.5 mg /3 mL (0.083 %) nebulizer solution INHALE 1 VIAL VIA NEBULIZER EVERY 4 HOURS NEEDED FOR WHEEZING/SHORTNESS OF BREATH. USE OVER 5-15 MINUTES ezetimibe (ZETIA) 10 mg tablet Take 1 tablet by mouth once daily. amiodarone (PACERONE) 100 mg tablet TAKE 1 TABLET BY MOUTH ONCE DAILY *DO NOT TAKE IF HEART RATE IS LESS THAN 40* atorvastatin (LIPITOR) 40 mg tablet take 1 tablet by mouth once daily escitalopram oxalate (LEXAPRO) 20 mg tablet take 1 tablet by mouth once daily apixaban (ELIQUIS) 5 mg tab(s) take 1 tablet by mouth twice daily Blood Pressure Monitor kit 1 application twice daily. Measure patient for correct size. Patient needs cuff for left arm readings. Leg Brace misc 1 Each as directed. RIGHT LEG BRACE (AFO TYPE) SPIRIVA RESPIMAT 2.5 mcg/actuation inhaler Inhale 2 Puffs as instructed once daily. (Patient not taking: Reported on 11/10/2024) hydroCHLOROthiazide 12.5 mg tablet Take 1 tablet by mouth every morning. (Patient not taking: Reported on 10/06/2024) clotrimazole-betametha sone (LOTRISONE) cream Apply to affected area two times a day. OXYGEN, HOME THERAPY, 4 L/min by Nasal Cannula route as directed. LORazepam (ATIVAN) 1 mg tablet Take 1-2 tablets by mouth three times a day as needed for anxiety for up to 45 days. Take 1-2 pills three times a day clopidogrel (PLAVIX) 75 mg tablet Take 75 mg by mouth once daily (more content not included)... 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 Status post left subclavian stent 11/02/2016 . TECHNIQUE -------- A carotid duplex ultrasound examination was performed, including grayscale imaging and color Doppler and spectral Doppler examination of the below mentioned arteries. FINDINGS -------- RIGHT SIDE Common carotid artery: Origin: PSV: 115 cm/s. EDV: 16 cm/s. Proximal: PSV: 137 cm/s. EDV: 20 cm/s. Mid: PSV: 95 cm/s. EDV: 19 cm/s. Distal: PSV: 111 cm/s. EDV: 20 cm/s. Mild heterogeneous plaque from proximal to distal. Internal carotid artery: Origin: PSV: 110 cm/s. EDV: 21 cm/s. Proximal: PSV: 127 cm/s. EDV: 38 cm/s. Mid: PSV: 52 cm/s. EDV: 16 cm/s. Distal: PSV: 48 cm/s. EDV: 12 cm/s. Mild heterogeneous plaque from origin to proximal. ICA/CCA Ratio: 1.1 External carotid artery: Origin: PSV: 119 cm/s. EDV: 15 cm/s. Proximal: PSV: 130 cm/s. EDV: 13 cm/s. Mild heterogeneous plaque at origin. Subclavian artery: Proximal: PSV: 189 cm/s. EDV: 0 cm/s. Mild heterogeneous plaque from origin to proximal. Innominate artery: PSV: 109 cm/s. EDV: 19 cm/s. Vertebral artery: PSV: 69 cm/s. EDV: 19 cm/s. LEFT SIDE Common carotid artery: Proximal: PSV: 87 cm/s. EDV: 11 cm/s. Mid: PSV: 99 cm/s. EDV: 9 cm/s. Distal: PSV: 93 cm/s. EDV: 14 cm/s. Mild heterogeneous plaque from proximal to distal. Internal carotid artery: Origin: PSV: 0 cm/s. EDV: 0 cm/s. Proximal: PSV: 0 cm/s. EDV: 0 cm/s. Mid: PSV: 0 cm/s. EDV: 0 cm/s. Distal: PSV: 0 cm/s. EDV: 0 cm/s. ICA/CCA Ratio: 0.0 External carotid artery: Proximal: PSV: 187 cm/s. EDV: 14 cm/s. Mild heterogeneous plaque at origin. Subclavian artery: Proximal: PSV: 239 cm/s. EDV: 0 cm/s. Mid: PSV: 180 cm/s. EDV: 0 cm/s. Mild heterogeneous plaque from proximal to distal. Vertebral artery: PSV: 68 cm/s. EDV: 20 cm/s. Subclavian artery distal: PSV: 146 cm/s. EDV: 0 cm/s. Multiphasic waveform. IMPRESSION Please note: the new carotid interpretation criteria are used as recommended by [facility]. When compared with the prior study, of 07/17/2023 no significant change is noted on the right side and no significant change is noted on the left side. RIGHT SIDE Common carotid artery: Plaque visualized without evidence of hemodynamically significant stenosis. Internal carotid artery: <50% stenosis consistent with mild carotid artery disease. Tortuous vessel at distal . Findings may be overestimated due to contralateral occlusion . Vertebral artery: Patent and antegrade flow noted. Subclavian artery: Turbulent flow noted, cannot rule out more proximal subclavian artery stenosis. May wish other means of evaluation. LEFT SIDE Common carotid artery: Plaque visualized without evidence of hemodynamically significant stenosis. Internal carotid artery: Total occlusion. Vertebral artery: Patent and antegrade flow noted. Subclavian artery: Turbulent flow noted, cannot rule out more proximal subclavian artery stenosis. May wish other means of evaluation. Patient has history of proximal subclavian artery stent. Unable to adequately visualize stent. Technologist: Melany Quezada T Ordering physician: DEANNE CRUZ Interpreting physician: GINO Singleton DO Final CC [facility] Image : [id number] See Link below for Image Normal [facility] Veda 10-22-2024 VINCENT Telephone (TIMWS) AFSHIN ZEE ([id number]) 1955 M Date Time Provider Department 10/22/24 KIMO MCGRATH During your visit today, we recorded the following information about you: Lacy Rosas MA 10/22/2024 3:01 PM Signed Patient's calling and states her has recently been admitted to the group home. States his oxygen levels have been good and not needing his oxygen at night. Spoke with his nurse Ricardo CALDWELL is going to get an update from Dr. Warren and call back with that update. Deanne Neville LPN 10/22/2024 3:36 PM Signed Noted, thank you! Allergies As of Date: 10/22/2024 Noted Allergy Reaction LISINOPRIL 09/27/2016 7 - Swelling 18 - Angioedema Comments: Lip swelling after starting lisinopril. DOXYCYCLINE 12/11/2022 8 - GI Upset 14 - Other: See Comments Comments: GI upset (stomach ache/cramping/diarrhea ) and splotchy face SULFA (SULFONAMIDE ANTIBIOTICS) 03/11/2019 4 - Hives ZPAK (AZITHROMYCIN) 10/03/2018 4 - Hives Date Reviewed: 10/07/2024 Reviewed by: Kassandra Tai LPN - Fully Assessed Reason for Visit: Patient Update [1234] Prescriptions as of 10/22/2024 - pregabalin (LYRICA) 50 mg capsule Take 1 capsule by mouth two times a day for 180 days. - Leg Brace misc 1 Each as directed. RIGHT LEG BRACE (AFO TYPE) - SPIRIVA RESPIMAT 2.5 mcg/actuation inhaler Inhale 2 Puffs as instructed once daily. - fluticasone-umeclidin- vilanter (TRELEGY ELLIPTA) 100-62.5-25 mcg inhalation powder Inhale 1 Puff as instructed once daily. - metoprolol tartrate, short acting, (LOPRESSOR) 25 mg tablet Take 0.5 tablets by mouth two times a day. - fluticasone (FLONASE) 50 mcg/actuation nasal spray Use 1 [place] in each nostril two times a day. Rinse mouth after use. - losartan (COZAAR) 25 mg tablet Take 1 tablet by mouth once daily. - baclofen 10 mg tablet Take 1 tablet by mouth three times a day. - amLODIPine (NORVASC) 10 mg tablet Take 0.5 tablets by mouth two times a day. Take 1/2 tablet twice daily - traZODone (DESYREL) 100 mg tablet Take 1 tablet by mouth daily at bedtime. - albuterol HFA (PROVENTIL HFA, VENTOLIN HFA) 90 mcg/actuation inhaler INHALE 2 PUFFS INTO THE LUNGS EVERY 4 HOURS NEEDED - multivitamin tablet Take 1 tablet by mouth once daily. - famotidine (PEPCID) 20 mg tablet Take 20 mg by mouth once daily. - hydroCHLOROthiazide 12.5 mg tablet Take 1 tablet by mouth every morning. - clotrimazole-betametha sone (LOTRISONE) cream Apply to affected area two times a day. - OXYGEN, HOME THERAPY, 4 L/min by Nasal Cannula route as directed. - busPIRone (BUSPAR) 15 mg tablet take 1 tablet by mouth three times a day - LORazepam (ATIVAN) 1 mg tablet Take 1-2 tablets by mouth three times a day as needed for anxiety for up to 45 days. Take 1-2 pills three times a day - potassium chloride (K-TAB) 10 mEq tablet Take 2 tablets by mouth three times a day. - albuterol (PROVENTIL) 2.5 mg /3 mL (0.083 %) nebulizer solution INHALE 1 VIAL VIA NEBULIZER EVERY 4 HOURS NEEDED FOR WHEEZING/SHORTNESS OF BREATH. USE OVER 5-15 MINUTES - clopidogrel (PLAVIX) 75 mg tablet Take 75 mg by mouth once daily. - ezetimibe (ZETIA) 10 mg tablet Take 1 tablet by mouth once daily. - ferrous sulfate (FEROSUL) 325 mg (65 mg iron) tablet Take 1 tablet by mouth two times a day. - amiodarone (PACERONE) 100 mg tablet TAKE 1 TABLET BY MOUTH ONCE DAILY *DO NOT TAKE IF HEART RATE IS LESS THAN 40* - atorvastatin (LIPITOR) 40 mg tablet take 1 tablet by mouth once daily - escitalopram oxalate (LEXAPRO) 20 mg tablet take 1 tablet by mouth once daily - apixaban (ELIQUIS) 5 mg tab(s) take 1 tablet by mouth twice daily - acetaminophen (TYLENOL EXTRA STRENGTH) 500 mg tablet Take 2 tablets by mouth three times a day as needed for pain. - Blood Pressure Monitor kit 1 application twice daily. Measure patient for correct size. Patient needs cuff for left arm readings. - COMPOUNDED PRESCRIPTION Articulating AFO foot brace for right leg. Send to [employer]. Dx: I63.9 - COMPOUNDED PRESCRIPTION EMBER WALKER DX I63.9 weight 162 # Problem List As Of Date 10/22/2024 Noted Resolved Hyperlipidemia [E78.5] 06/06/2010 Elevated blood pressure [HFI4006] 06/06/2010 03/20/2019 Erectile dysfunction [N52.9] 06/06/2010 Cervicalgia [M54.2] 04/16/2016 Chronic right shoulder pain [M25.511, G89.29] 04/16/2016 Occlusion of left carotid artery [I65.22] 07/02/2016 Stroke (cerebrum) (HCC) [I63.9] Aneurysm (HCC) [I72.9] Essential hypertension [I10] 06/25/2017 Anxiety [F41.9] 09/04/2017 Chronic insomnia [F51.04] 04/04/2018 Right hemiplegia (HCC) [G81.91] 04/30/2018 Bradycardia [R00.1] 03/20/2019 Dysphasia [R47.02] Coronary artery disease involving [place] matos*04/02/2021 Paroxysmal atrial fibrillation (HCC) [I48.0] 04/03/2021 Aphasia as late effect of cerebrovascular acc (more content not included)... [facility] ([id number]) 1955 M Date Time Provider Department 10/20/24 EARL ELISE During your visit today, we recorded the following information about you: Lacy Rosas MA 10/20/2024 3:51 PM Signed Patient's calling and states had the nighttime oxygen testing done and asking if the office has received any results? Deanne Neville LPN 10/21/2024 10:34 AM Signed Spoke with Renetta at [facility] [place]. [place] is needing a dx code for upload. Fax received for OPERATIONS LABEL CLERK signature. On provider's desk for review. JAVI Gibbons Kathleen, LPN 10/21/2024 4:07 PM Signed Fax returned to [facility] [place]. JAVI Gibbons Kathleen, LPN 10/22/2024 1:59 PM Signed Results received from [facility] [place] and scanned to chart. Patient with continued desaturations below 88% for >50minutes on 4L. Detailed message left on voicemail for patient and spouse to continue 6LPM Deanne Neville LPN Allergies As of Date: 10/20/2024 Noted Allergy Reaction LISINOPRIL 09/27/2016 7 - Swelling 18 - Angioedema Comments: Lip swelling after starting lisinopril. DOXYCYCLINE 12/11/2022 8 - GI Upset 14 - Other: See Comments Comments: GI upset (stomach ache/cramping/diarrhea ) and splotchy face SULFA (SULFONAMIDE ANTIBIOTICS) 03/11/2019 4 - Hives ZPAK (AZITHROMYCIN) 10/03/2018 4 - Hives Date Reviewed: 10/07/2024 Reviewed by: Kassandra Tai LPN - Fully Assessed Prescriptions as of 10/22/2024 - pregabalin (LYRICA) 50 mg capsule Take 1 capsule by mouth two times a day for 180 days. - Leg Brace misc 1 Each as directed. RIGHT LEG BRACE (AFO TYPE) - SPIRIVA RESPIMAT 2.5 mcg/actuation inhaler Inhale 2 Puffs as instructed once daily. - fluticasone-umeclidin- vilanter (TRELEGY ELLIPTA) 100-62.5-25 mcg inhalation powder Inhale 1 Puff as instructed once daily. - metoprolol tartrate, short acting, (LOPRESSOR) 25 mg tablet Take 0.5 tablets by mouth two times a day. - fluticasone (FLONASE) 50 mcg/actuation nasal spray Use 1 [place] in each nostril two times a day. Rinse mouth after use. - losartan (COZAAR) 25 mg tablet Take 1 tablet by mouth once daily. - baclofen 10 mg tablet Take 1 tablet by mouth three times a day. - amLODIPine (NORVASC) 10 mg tablet Take 0.5 tablets by mouth two times a day. Take 1/2 tablet twice daily - traZODone (DESYREL) 100 mg tablet Take 1 tablet by mouth daily at bedtime. - albuterol HFA (PROVENTIL HFA, VENTOLIN HFA) 90 mcg/actuation inhaler INHALE 2 PUFFS INTO THE LUNGS EVERY 4 HOURS NEEDED - multivitamin tablet Take 1 tablet by mouth once daily. - famotidine (PEPCID) 20 mg tablet Take 20 mg by mouth once daily. - hydroCHLOROthiazide 12.5 mg tablet Take 1 tablet by mouth every morning. - clotrimazole-betametha sone (LOTRISONE) cream Apply to affected area two times a day. - OXYGEN, HOME THERAPY, 4 L/min by Nasal Cannula route as directed. - busPIRone (BUSPAR) 15 mg tablet take 1 tablet by mouth three times a day - LORazepam (ATIVAN) 1 mg tablet Take 1-2 tablets by mouth three times a day as needed for anxiety for up to 45 days. Take 1-2 pills three times a day - potassium chloride (K-TAB) 10 mEq tablet Take 2 tablets by mouth three times a day. - albuterol (PROVENTIL) 2.5 mg /3 mL (0.083 %) nebulizer solution INHALE 1 VIAL VIA NEBULIZER EVERY 4 HOURS NEEDED FOR WHEEZING/SHORTNESS OF BREATH. USE OVER 5-15 MINUTES - clopidogrel (PLAVIX) 75 mg tablet Take 75 mg by mouth once daily. - ezetimibe (ZETIA) 10 mg tablet Take 1 tablet by mouth once daily. - ferrous sulfate (FEROSUL) 325 mg (65 mg iron) tablet Take 1 tablet by mouth two times a day. - amiodarone (PACERONE) 100 mg tablet TAKE 1 TABLET BY MOUTH ONCE DAILY *DO NOT TAKE IF HEART RATE IS LESS THAN 40* - atorvastatin (LIPITOR) 40 mg tablet take 1 tablet by mouth once daily - escitalopram oxalate (LEXAPRO) 20 mg tablet take 1 tablet by mouth once daily - apixaban (ELIQUIS) 5 mg tab(s) take 1 tablet by mouth twice daily - acetaminophen (TYLENOL EXTRA STRENGTH) 500 mg tablet Take 2 tablets by mouth three times a day as needed for pain. - Blood Pressure Monitor kit 1 application twice daily. Measure patient for correct size. Patient needs cuff for left arm readings. - COMPOUNDED PRESCRIPTION Articulating AFO foot brace for right leg. Send to [facility]. Dx: I63.9 - COMPOUNDED PRESCRIPTION EMBER WALKER DX I63.9 weight 162 # Problem List As Of Date 10/20/2024 Noted Resolved Hyperlipidemia [E78.5] 06/06/2010 Elevated blood pressure [KMH2339] 06/06/2010 03/20/2019 Erectile dysfunction [N52.9] 06/06/2010 Cervicalgia [M54.2] 04/16/2016 Chronic right shoulder pain [M25.511, G89.29] 04/16/2016 Occlusion of left carotid artery [I65.22] 07/02/2016 Stroke (cerebrum) (HCC) [I63.9] Aneurysm (HCC) [I72.9] Essential hypertension [I10] 06/25/2017 Anxiety [F41 (more content not included)... Normal [facility] Veda 10-16-2024 ESTELLAN Telephone (NE50MN) AFSHIN ZEE ([id number]) 1955 M Date Time Provider Department 10/16/24 YESSI VALDEZ NE50MN During your visit today, we recorded the following information about you: Sonya Hidalgo 10/16/2024 1:19 PM Signed Medication Concern Person Calling Eli Zee, Name of medication Lyrica 75 mg Concern with medication Mrs. Zee lowered the dose herself d/t frequent falls. Patient is being discharged and going to [facility] [place], [place]. Mrs. Zee asks to be given a script for Lyrica 50 mg BID. If approved, send to [facility] in [place], [place] [phone]. Patient of Mildred Dillard RN 10/16/2024 1:41 PM Signed I spoke with , who stated Afshin continues to have frequent falls due to Lyrica 75/75 Patient was admitted [facility] due to a fall. He will be discharge today to [facility] [place], [place] stated he did not experience falls when Lyrica was 50/50 Mrs. Zee asks to be given a script for Lyrica 50 mg BID. If approved, send to [facility] in [place], [place] [phone]. DIANE Beatty Ann, PA-C 10/16/2024 1:50 PM Signed Okay to continue Lyrica 50mg twice daily but if seizure reoccur we will have to change to alternative anti-seizure medication The following approved medication requests have been transmitted electronically. Requested Prescriptions Signed Prescriptions Disp Refills pregabalin (LYRICA) 50 mg capsule 180 capsule 1 Sig: Take 1 capsule by mouth two times a day for 180 days. Authorizing Provider: NAYELI YOUNG PA-C Moore-Clemmons, Tanya, RN 10/16/2024 2:09 PM Signed I spoke with Eli, she agreed with recommendations. Mildred Adame RN Allergies As of Date: 10/16/2024 Noted Allergy Reaction LISINOPRIL 09/27/2016 7 - Swelling 18 - Angioedema Comments: Lip swelling after starting lisinopril. 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 - Leg Brace misc 1 Each as directed. RIGHT LEG BRACE (AFO TYPE) - SPIRIVA RESPIMAT 2.5 mcg/actuation inhaler Inhale 2 Puffs as instructed once daily. - fluticasone-umeclidin- vilanter (TRELEGY ELLIPTA) 100-62.5-25 mcg inhalation powder Inhale 1 Puff as instructed once daily. - metoprolol tartrate, short acting, (LOPRESSOR) 25 mg tablet Take 0.5 tablets by mouth two times a day. - fluticasone (FLONASE) 50 mcg/actuation nasal spray Use 1 [place] in each nostril two times a day. Rinse mouth after use. - losartan (COZAAR) 25 mg tablet Take 1 tablet by mouth once daily. - baclofen 10 mg tablet Take 1 tablet by mouth three times a day. - amLODIPine (NORVASC) 10 mg tablet Take 0.5 tablets by mouth two times a day. Take 1/2 tablet twice daily - traZODone (DESYREL) 100 mg tablet Take 1 tablet by mouth daily at bedtime. - albuterol HFA (PROVENTIL HFA, VENTOLIN HFA) 90 mcg/actuation inhaler INHALE 2 PUFFS INTO THE LUNGS EVERY 4 HOURS NEEDED - multivitamin tablet Take 1 tablet by mouth once daily. - famotidine (PEPCID) 20 mg tablet Take 20 mg by mouth once daily. - hydroCHLOROthiazide 12.5 mg tablet Take 1 tablet by mouth every morning. - clotrimazole-betametha sone (LOTRISONE) cream Apply to affected area two times a day. - OXYGEN, HOME THERAPY, 4 L/min by Nasal Cannula route as directed. - busPIRone (BUSPAR) 15 mg tablet take 1 tablet by mouth three times a day - LORazepam (ATIVAN) 1 mg tablet Take 1-2 tablets by mouth three times a day as needed for anxiety for up to 45 days. Take 1-2 pills three times a day - potassium chloride (K-TAB) 10 mEq tablet Take 2 tablets by mouth three times a day. - albuterol (PROVENTIL) 2.5 mg /3 mL (0.083 %) nebulizer solution INHALE 1 VIAL VIA NEBULIZER EVERY 4 HOURS NEEDED FOR WHEEZING/SHORTNESS OF BREATH. USE OVER 5-15 MINUTES - clopidogrel (PLAVIX) 75 mg tablet Take 75 mg by mouth once daily. - ezetimibe (ZETIA) 10 mg tablet Take 1 tablet by mouth once daily. - ferrous sulfate (FEROSUL) 325 mg (65 mg iron) tablet Take 1 tablet by mouth two times a day. - amiodarone (PACERONE) 100 mg tablet TAKE 1 TABLET BY MOUTH ONCE DAILY *DO NOT TAKE IF HEART RATE IS LESS THAN 40* - atorvastatin (LIPITOR) 40 mg tablet t (more content not included)... Normal [facility] .GFRon 10-15-2024 Estimated Glomerular Filtration Rate 59 ml/min/1.73sqm Normal [facility] Comment on above: Result Comment: Stages of Chronic Kidney Disease (CKD) Stage Description eGFR(ml/min/1.73 sq.m.) CKD 1 Normal kidney function or >=90 normal kindney function with possible kidney damage (ex. Proteinuria) CKD 2 Kidney damage with mild loss 60-89 of kidney function CKD 3a Mild to moderate loss of kidney 45-59 function CKD 3b Moderate to severe loss of 30-44 of kindey function CKD 4 Severe loss of kidney function 15-29 CKD 5 Kidney failure <15 Note: (go live 2024) the eGFR calculation was updated to the 2020 CKD-EPI creatinine equation without a race factor to calculate the eGFR results. Performed By: #### G , BMP #### [address] [address] BMPon 10-15-2024 BUN/Creatinine Ratio 11 ratio Normal 7-27 [facility] Comment on above: Performed By: #### Deirdre HOLLINS, BMP #### [address] [address] Calcium [Mass/Vol] 8.0 mg/dL Low 8.4-10.2 [facility] Comment on above: Performed By: #### Deirdre HOLLINS, BMP #### [address] [address] Chloride [Moles/Vol] 107 mmol/L Normal 98-107 [facility] Comment on above: Performed By: #### Deirdre HOLLINS, BMP #### [address] [address] CO2 [Moles/Vol] 29 mmol/L Normal 23-31 [facility] Comment on above: Performed By: #### Deirdre HOLLINS, BMP #### [address] [address] Creatinine [Mass/Vol] 1.31 mg/dL High 0.70-1.30 [facility] Comment on above: Result Comment: Test ing performed on Siemens Dimension EXL analyzer using a modified kinetic Omid technique. Performed By: #### Deirdre HOLLINS, BMP #### [address] [address] Electrolyte Balance 6.0 mEq/L Normal 4.0-15.0 [facility] Comment on above: Performed By: #### Deirdre HOLLINS, BMP #### [address] [address] Glucose [Mass/Vol] 99 mg/dL Normal 80-115 [facility] Comment on above: Performed By: #### Deirdre HOLLINS, BMP #### [address] [address] Potassium [Moles/Vol] 4.0 mmol/L Normal 3.5-5.1 [facility] Comment on above: Performed By: #### Deirdre HOLLINS, BMP #### [address] [address] Sodium [Moles/Vol] 142 mmol/L Normal 136-145 [facility] Comment on above: Performed By: #### G FR, BMP #### [address] [address] Urea nitrogen [Mass/Vol] 15 mg/dL Normal 7-18 [facility] Comment on above: Performed By: #### G FR, BMP #### [address] [address] MGon 10-15-2024 Magnesium [Mass/Vol] 2.1 mg/dL Normal 1.8-2.4 [facility] Comment on above: Performed By: #### G , MG, BMP #### [address] [address] .Auto Diffon 10-14-2024 Basophil, Absolute 0.1 10 3/mcL Normal 0.0-0.2 [facility] Comment on above: Performed By: #### Casey DIAZ UA #### [address] [address] Basophils/100 WBC (Bld) 0.8 % Normal 0.0-2.5 [facility] Comment on above: Performed By: #### Casey DIAZ UA #### [address] [address] Eosinophil, Absolute 0.6 10 3/mcL Normal 0.0-0.7 [facility] Comment on above: Performed By: #### Casey AMIJEFF UA #### [address] [address] Eosinophils/100 WBC (Bld) 6.2 % Normal 0.0-7.0 [facility] Comment on above: Performed By: #### Casey DIAZ UA #### [address] [address] Lymphocyte, Absolute 1.9 10 3/mcL Normal 0.9-4.3 [facility] Comment on above: Performed By: #### U AMICAO, UA #### [address] [address] Lymphocytes/100 WBC (Bld) 20.2 % Normal 20.0-40.0 [facility] Comment on above: Performed By: #### U KACEYCAO, UA #### [address] [address] Monocyte, Absolute 1.5 10 3/mcL High 0.1-1.4 [facility] Comment on above: Performed By: #### U KACEYCAO, UA #### [address] [address] Monocytes/100 WBC (Bld) 15.0 % High 2.0-13.0 [facility] Comment on above: Performed By: #### Casey DIAZ UA #### [address] [address] Neutrophils/100 WBC (Bld) 57.8 % Normal 50.0-75.0 [facility] Comment on above: Performed By: #### Casey DIAZ, UA #### [address] [address] .GFRon 10-14-2024 Estimated Glomerular Filtration Rate 54 ml/min/1.73sqm Normal [facility] Comment on above: Result Comment: Stages of Chronic Kidney Disease (CKD) Stage Description eGFR(ml/min/1.73 sq.m.) CKD 1 Normal kidney function or >=90 normal kindney function with possible kidney damage (ex. Proteinuria) CKD 2 Kidney damage with mild loss 60-89 of kidney function CKD 3a Mild to moderate loss of kidney 45-59 function CKD 3b Moderate to severe loss of 30-44 of kindey function CKD 4 Severe loss of kidney function 15-29 CKD 5 Kidney failure <15 Note: (go live 2024) the eGFR calculation was updated to the 2020 CKD-EPI creatinine equation without a race factor to calculate the eGFR results. Performed By: #### U KACEYCADameon UA #### [address] [address] .NEUABSon 10-14-2024 Neutrophil, Absolute 5.6 10 3/mcL Normal 2.3-8.1 [facility] Comment on above: Performed By: #### FABI MEZA #### [address] [address] CBCon 10-14-2024 Erythrocyte distribution width (RBC) [Ratio] 13.5 % Normal 11.5-15.5 [facility] Comment on above: Performed By: #### FABI MEZA #### [address] [address] Hematocrit (Bld) [Volume fraction] 36.5 % Low 40.0-52.0 [facility] Comment on above: Performed By: #### FABI MEZA #### [address] [address] Hgb 12.4 G/dL Low 13.0-17.5 [facility] Comment on above: Performed By: #### FABI MEZA #### [address] [address] MCH (RBC) [Entitic mass] 31.6 pg Normal 27.0-33.0 [facility] Comment on above: Performed By: #### FABI MEZA #### [address] [address] MCHC 34.1 G/dL Normal 32.0-36.0 [facility] Comment on above: Performed By: #### FABI MEZA #### [address] [address] MCV (RBC) [Entitic vol] 92.6 fL Normal 81.0-100.0 [facility] Comment on above: Performed By: #### FABI MEZA #### [address] [address] Platelet 197 10 3/mcL Normal 150-450 [facility] Comment on above: Performed By: #### FABI MEZA #### [address] [address] Platelet mean volume (Bld) [Entitic vol] 10.1 fL Normal 6.4-10.5 [facility] Comment on above: Performed By: #### FABI MEZA #### [address] [address] RBC 3.94 10 6/mcL Low 4.50-6.00 [facility] Comment on above: Performed By: #### FABI MEZA #### [address] [address] WBC 9.6 10 3/mcL Normal 4.5-10.8 [facility] Comment on above: Performed By: #### FABI MEZA #### [address] [address] CMPon 10-14-2024 Albumin Level 3.0 G/dL Low 3.4-4.8 [facility] Comment on above: Performed By: #### FABI MEZA #### [address] [address] Albumin/Globulin [Mass ratio] 1.0 {ratio} Low 1.1-2.5 [facility] Comment on above: Performed By: #### FABI MEZA #### [address] [address] ALP [Catalytic activity/Vol] 101 U/L Normal 40-135 [facility] Comment on above: Performed By: #### FABI MEZA #### [address] [address] ALT [Catalytic activity/Vol] 19 U/L Normal 16-63 [facility] Comment on above: Performed By: #### FABI MEZA #### [address] [address] AST [Catalytic activity/Vol] 12 U/L Normal 10-40 [facility] Comment on above: Performed By: #### FABI MEZA #### [address] [address] Bili Total 0.7 mg/dL Normal 0.2-1.0 [facility] Comment on above: Result Comment: Use of this assay is not recommended for patients undergoing treatment with eltrombopag due to the potential for falsely elevated results. Performed By: #### Casey DIAZ UA #### [address] [address] BUN/Creatinine Ratio 13 ratio Normal 7-27 [facility] Comment on above: Performed By: #### Casey DIAZ UA #### [address] [address] Calcium [Mass/Vol] 8.0 mg/dL Low 8.4-10.2 [facility] Comment on above: Performed By: #### Casey DIAZ UA #### [address] [address] Chloride [Moles/Vol] 110 mmol/L High 98-107 [facility] Comment on above: Performed By: #### Casey DIAZ UA #### [address] [address] CO2 [Moles/Vol] 29 mmol/L Normal 23-31 [facility] Comment on above: Performed By: #### Casey DIAZ UA #### [address] [address] Creatinine [Mass/Vol] 1.41 mg/dL High 0.70-1.30 [facility] Comment on above: Result Comment: Test ing performed on Siemens Dimension EXL analyzer using a modified kinetic Omid technique. Performed By: #### Casey DIAZ UA #### [address] [address] Electrolyte Balance 4.0 mEq/L Normal 4.0-15.0 [facility] Comment on above: Performed By: #### Casey DIAZ UA #### [address] [address] Globulin 3.0 G/dL Normal 1.5-3.8 [facility] Comment on above: Performed By: #### U JOE, UA #### [address] [place], [place] [address] Glucose [Mass/Vol] 86 mg/dL Normal 80-115 [facility] Comment on above: Performed By: #### Casey DIAZ, UA #### [address] [place], [place] [address] Potassium [Moles/Vol] 3.9 mmol/L Normal 3.5-5.1 [facility] Comment on above: Performed By: #### U JOE, UA #### [address] [place], [place] [address] Sodium [Moles/Vol] 143 mmol/L Normal 136-145 [facility] Comment on above: Performed By: #### Casey DIAZ, UA #### [address] [address] Total Protein 6.0 G/dL Low 6.4-8.2 [facility] Comment on above: Performed By: #### Casey DIAZ, UA #### [address] [address] Urea nitrogen [Mass/Vol] 18 mg/dL Normal 7-18 [facility] Comment on above: Performed By: #### Casey DIAZ, UA #### [address] [place], [place] [address] [facility] AFSHIN ZEE ([id number]) 1955 M Date Time Provider Department 10/14/24 [facility] ARROYO [facility] During your visit today, we recorded the following information about you: Loida Vazquez LPN 10/14/2024 1:14 PM Signed Patient Eli calling asking for an order for right leg brace to be faxed to [facility]. She said it is to prevent him from dragging his foot, molded brace, black in color goes down in his shoe and goes up to his knee fastens with velcro. Sounds like a custom type AFO. Pending order. would like notified when order is faxed. Please advise Jessie Harmon APRN.OPERATIONS LABEL CLERK 10/14/2024 2:49 PM Signed The following approved medication requests have been transmitted electronically. Requested Prescriptions Signed Prescriptions Disp Refills Leg Brace misc 1 Each 0 Si Each as directed. RIGHT LEG BRACE (AFO TYPE) Authorizing Provider: JESSIE HARMON APRN.OPERATIONS LABEL CLERK Order will be faxed to [facility]. Kassandra Tai LPN 10/14/2024 5:03 PM Signed Patient notified of updated with Rx, verbalizes understanding of instructions. Kassandra Tai LPN Allergies As of Date: 10/14/2024 Noted Allergy Reaction LISINOPRIL 09/27/2016 7 - Swelling 18 - Angioedema Comments: Lip swelling after starting lisinopril. 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 RIGHT LEG BRACE (AFO TYPE)Disp: 1 EachRfl: 0 Prescriptions as of 10/14/2024 - Leg Brace misc 1 Each as directed. RIGHT LEG BRACE (AFO TYPE) - SPIRIVA RESPIMAT 2.5 mcg/actuation inhaler Inhale 2 Puffs as instructed once daily. - fluticasone-umeclidin- vilanter (TRELEGY ELLIPTA) 100-62.5-25 mcg inhalation powder Inhale 1 Puff as instructed once daily. - pregabalin (LYRICA) 75 mg capsule Take 1 capsule by mouth two times a day for 180 days. Patient should start on October 14, 2024. - metoprolol tartrate, short acting, (LOPRESSOR) 25 mg tablet Take 0.5 tablets by mouth two times a day. - fluticasone (FLONASE) 50 mcg/actuation nasal spray Use 1 [place] in each nostril two times a day. Rinse mouth after use. - losartan (COZAAR) 25 mg tablet Take 1 tablet by mouth once daily. - pregabalin (LYRICA) 25 mg capsule Take 25 mg at bedtime for 1 week followed by 25 mg twice daily for 1 week followed by 25 mg in the morning and 50 mg at bedtime for 1 week followed by 50 mg twice daily for 1 week followed by 50 mg in the morning and 75 mg at bedtime for 1 week followed by 75 mg twice daily. - baclofen 10 mg tablet Take 1 tablet by mouth three times a day. - amLODIPine (NORVASC) 10 mg tablet Take 0.5 tablets by mouth two times a day. Take 1/2 tablet twice daily - traZODone (DESYREL) 100 mg tablet Take 1 tablet by mouth daily at bedtime. - albuterol HFA (PROVENTIL HFA, VENTOLIN HFA) 90 mcg/actuation inhaler INHALE 2 PUFFS INTO THE LUNGS EVERY 4 HOURS NEEDED - multivitamin tablet Take 1 tablet by mouth once daily. - famotidine (PEPCID) 20 mg tablet Take 20 mg by mouth once daily. - hydroCHLOROthiazide 12.5 mg tablet Take 1 tablet by mouth every morning. - clotrimazole-betametha sone (LOTRISONE) cream Apply to affected area two times a day. - OXYGEN, HOME THERAPY, 4 L/min by Nasal Cannula route as directed. - busPIRone (BUSPAR) 15 mg tablet take 1 tablet by mouth three times a day - LORazepam (ATIVAN) 1 mg tablet Take 1-2 tablets by mouth three times a day as needed for anxiety for up to 45 days. Take 1-2 pills three times a day - potassium chloride (K-TAB) 10 mEq tablet Take 2 tablets by mouth three times a day. - albuterol (PROVENTIL) 2.5 mg /3 mL (0.083 %) nebulizer solution INHALE 1 VIAL VIA NEBULIZER EVERY 4 HOURS NEEDED FOR WHEEZING/SHORTNESS OF BREATH. USE OVER 5-15 MINUTES - clopidogrel (PLAVIX) 75 mg tablet Take 75 mg by mouth once daily. - ezetimibe (ZETIA) 10 mg tablet Take 1 tablet by mouth once daily. - ferrous sulfate (FEROSUL) 325 mg (65 mg iron) tablet Take 1 tablet by mouth two times a day. - amiodarone (PACERONE) 100 mg tablet TAKE 1 TABLET BY MOUTH ONCE DAILY *DO NOT TAKE IF HEART RATE IS LESS THAN 40* - atorvastatin (LIPITOR) 40 mg tablet take 1 tablet by mouth once daily - escitalopram oxalate (LEXAPRO) 20 mg tablet take 1 tablet by mouth once daily - apixaban (ELIQUIS) 5 mg tab(s) take 1 tablet by mouth (more content not included)... Normal [facility] MGon 10-14-2024 Magnesium [Mass/Vol] 2.2 mg/dL Normal 1.8-2.4 [facility] Comment on above: Performed By: #### U AMICAO, UA #### [address] [address] UAon 10-14-2024 Color (U) Yellow Normal [facility] Comment on above: Performed By: #### G FR, MG, BMP #### [address] [address] Glucose (U) [Mass/Vol] Negative Normal Negative [facility] Comment on above: Performed By: #### G FR, MG, BMP #### [address] [address] Ketones Ql (U) Negative Normal Negative [facility] Comment on above: Performed By: #### G FR, MG, BMP #### [address] [address] UA Appear Clear Normal Clear [facility] Comment on above: Performed By: #### G FR, MG, BMP #### [address] [address] UA Blood Negative Normal Negative [facility] Comment on above: Performed By: #### G FR, MG, BMP #### [address] [address] UA Leuk Est Negative Normal Negative [facility] Comment on above: Performed By: #### G FR, MG, BMP #### [place] [address] UA Nitrite Negative Normal Negative [facility] Comment on above: Performed By: #### G FR, MG, BMP #### [place] [address] UA pH 5.5 Normal 5.0 - 8.0 [facility] Comment on above: Performed By: #### G FR, MG, BMP #### [place] [address] UA Protein Negative Normal Negative [facility] Comment on above: Performed By: #### G FR, MG, BMP #### [place] [address] UA Spec Grav 1.015 Normal 1.015-1.025 [facility] Comment on above: Performed By: #### G FR, MG, BMP #### [place] [address] UA Specimen Type Clean Catch Normal [facility] Comment on above: Performed By: #### G FR, MG, BMP #### [place] [address] UA Urobilinogen 0.2 E.U./dL Normal 0.2-1.0 [facility] Comment on above: Performed By: #### G FR, MG, BMP #### [place] [address] Urobilinogen (U) [Mass/Vol] Negative Normal Negative [facility] Comment on above: Performed By: #### G FR, MG, BMP #### [address] [address] .Auto Diffon 10-13-2024 Basophil, Absolute 0.1 10 3/mcL Normal 0.0-0.2 [facility] Comment on above: Performed By: #### G FR, MG, BMP #### [address] [address] Basophils/100 WBC (Bld) 0.8 % Normal 0.0-2.5 [facility] Comment on above: Performed By: #### G FR, MG, BMP #### [address] [address] Eosinophil, Absolute 0.7 10 3/mcL Normal 0.0-0.7 [facility] Comment on above: Performed By: #### G FR, MG, BMP #### [address] [address] Eosinophils/100 WBC (Bld) 6.6 % Normal 0.0-7.0 [facility] Comment on above: Performed By: #### G FR, MG, BMP #### [address] [address] Lymphocyte, Absolute 2.0 10 3/mcL Normal 0.9-4.3 [facility] Comment on above: Performed By: #### G FR, MG, BMP #### [address] [address] Lymphocytes/100 WBC (Bld) 18.2 % Low 20.0-40.0 [facility] Comment on above: Performed By: #### G FR, MG, BMP #### [address] [address] Monocyte, Absolute 1.3 10 3/mcL Normal 0.1-1.4 [facility] Comment on above: Performed By: #### G FR, MG, BMP #### [address] [address] Monocytes/100 WBC (Bld) 11.4 % Normal 2.0-13.0 [facility] Comment on above: Performed By: #### G FR, MG, BMP #### [address] [address] Neutrophils/100 WBC (Bld) 63.0 % Normal 50.0-75.0 [facility] Comment on above: Performed By: #### G FR, MG, BMP #### [address] [address] .GFRon 10-13-2024 Estimated Glomerular Filtration Rate 49 ml/min/1.73sqm Normal [facility] Comment on above: Result Comment: Stages of Chronic Kidney Disease (CKD) Stage Description eGFR(ml/min/1.73 sq.m.) CKD 1 Normal kidney function or >=90 normal kindney function with possible kidney damage (ex. Proteinuria) CKD 2 Kidney damage with mild loss 60-89 of kidney function CKD 3a Mild to moderate loss of kidney 45-59 function CKD 3b Moderate to severe loss of 30-44 of kindey function CKD 4 Severe loss of kidney function 15-29 CKD 5 Kidney failure <15 Note: (go live 2024) the eGFR calculation was updated to the 2020 CKD-EPI creatinine equation without a race factor to calculate the eGFR results. Performed By: #### G FR, MG, BMP #### [address] [address] .MDWon 10-13-2024 Monocyte Distribution Width 18.74 Normal 0.00-20.00 [facility] Comment on above: Result Comment: For ED adult patients suspected of sepsis, MDW<=20.0 does not rule out sepsis or risk of sepsis Performed By: #### G FR, MG, BMP #### [address] [address] .NEUABSon 10-13-2024 Neutrophil, Absolute 7.0 10 3/mcL Normal 2.3-8.1 [facility] Comment on above: Performed By: #### G FR, MG, BMP #### [address] [place], [place] [address] BMPon 10-13-2024 BUN/Creatinine Ratio 12 ratio Normal 7-27 [facility] Comment on above: Performed By: #### G FR, MG, BMP #### [address] [address] Calcium [Mass/Vol] 8.5 mg/dL Normal 8.4-10.2 [facility] Comment on above: Performed By: #### G FR, MG, BMP #### [address] [address] Chloride [Moles/Vol] 104 mmol/L Normal 98-107 [facility] Comment on above: Performed By: #### G FR, MG, BMP #### [address] [address] CO2 [Moles/Vol] 29 mmol/L Normal 23-31 [facility] Comment on above: Performed By: #### G FR, MG, BMP #### [address] [address] Creatinine [Mass/Vol] 1.52 mg/dL High 0.70-1.30 [facility] Comment on above: Result Comment: Test ing performed on Siemens Dimension EXL analyzer using a modified kinetic Omid technique. Performed By: #### G FR MG, BMP #### [address] [address] Electrolyte Balance 4.0 mEq/L Normal 4.0-15.0 [facility] Comment on above: Performed By: #### Deirdre FR, MG, BMP #### [address] [address] Glucose [Mass/Vol] 86 mg/dL Normal 80-115 [facility] Comment on above: Performed By: #### G FR, MG, BMP #### [address] [address] Potassium [Moles/Vol] 4.8 mmol/L Normal 3.5-5.1 [facility] Comment on above: Performed By: #### G FR, MG, BMP #### [address] [address] Sodium [Moles/Vol] 137 mmol/L Normal 136-145 [facility] Comment on above: Performed By: #### Deirdre HOLLINS MG, BMP #### [id number] Urea nitrogen [Mass/Vol] 19 mg/dL High 7-18 [facility] Comment on above: Performed By: #### Deirdre HOLLINS MG, BMP #### [id number] CBCon 10-13-2024 Erythrocyte distribution width (RBC) [Ratio] 13.8 % Normal 11.5-15.5 [facility] Comment on above: Performed By: #### Deirdre HOLLINS MG, BMP #### [id number] Hematocrit (Bld) [Volume fraction] 40.0 % Normal 40.0-52.0 [facility] Comment on above: Performed By: #### Deirdre HOLLINS MG, BMP #### [id number] Hgb 13.7 G/dL Normal 13.0-17.5 [facility] Comment on above: Performed By: #### Deirdre HOLLINS MG, BMP #### [id number] MCH (RBC) [Entitic mass] 31.7 pg Normal 27.0-33.0 [facility] Comment on above: Performed By: #### Deirdre HOLLINS MG, BMP #### [id number] MCHC 34.3 G/dL Normal 32.0-36.0 [facility] Comment on above: Performed By: #### Deirdre HOLLINS MG, BMP #### [phone] MCV (RBC) [Entitic vol] 92.2 fL Normal 81.0-100.0 [facility] Comment on above: Performed By: #### Deirdre HOLLINS MG, BMP #### [phone] Platelet 215 10 3/mcL Normal 150-450 [facility] Comment on above: Performed By: #### G FR, MG, BMP #### [address] [place], [place] [address] Platelet mean volume (Bld) [Entitic vol] 9.9 fL Normal 6.4-10.5 [facility] Comment on above: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 CONTINUE taking these medications acetaminophen 500 mg tablet Commonly known as: TYLENOL EXTRA STRENGTH Take 2 tablets by mouth three times a day as needed for pain. * albuterol 2.5 mg /3 mL (0.083 %) nebulizer solution Commonly known as: PROVENTIL INHALE 1 VIAL VIA NEBULIZER EVERY 4 HOURS NEEDED FOR WHEEZING/SHORTNESS OF BREATH. USE OVER 5-15 MINUTES * albuterol HFA 90 mcg/actuation inhaler Commonly known as: PROVENTIL HFA, VENTOLIN HFA INHALE 2 PUFFS INTO THE LUNGS EVERY 4 HOURS NEEDED amiodarone 100 mg tablet Commonly known as: PACERONE TAKE 1 TABLET BY MOUTH ONCE DAILY *DO NOT TAKE IF HEART RATE IS LESS THAN 40* amLODIPine 10 mg tablet Commonly known as: NORVASC Take 0.5 tablets by mouth two times a day. Take 1/2 tablet twice daily atorvastatin 40 mg tablet Commonly known as: LIPITOR take 1 tablet by mouth once daily baclofen 10 mg tablet Take 1 tablet by mouth three times a day. Blood Pressure Monitor 1 application twice daily. Measure patient for correct size. Patient needs cuff for left arm readings. busPIRone 15 mg tablet Commonly known as: BUSPAR take 1 tablet by mouth three times a day clopidogrel 75 mg tablet Commonly known as: PLAVIX clotrimazole-betametha sone cream Commonly known as: LOTRISONE Apply to affected area two times a day. COMPOUNDED PRESCRIPTION EMBER WALKER DX I63.9 weight 162 # COMPOUNDED PRESCRIPTION Articulating AFO foot brace for right leg. Send to [employer]. Dx: I63.9 ELIQUIS 5 mg tab(s) Generic drug: apixaban take 1 tablet by mouth twice daily escitalopram oxalate 20 mg tablet Commonly known as: LEXAPRO take 1 tablet by mouth once daily ezetimibe 10 mg tablet Commonly known as: ZETIA Take 1 tablet by mouth once daily. famotidine 20 mg tablet Commonly known as: PEPCID ferrous sulfate 325 mg (65 mg iron) tablet Commonly known as: FeroSuL Take 1 tablet by mouth two times a day. fluticasone 50 mcg/actuation nasal spray Commonly known as: FLONASE Use 1 [place] in each nostril two times a day. Rinse mouth after use. hydroCHLOROthiazide 12.5 mg tablet LORazepam 1 mg tablet Commonly known as: ATIVAN Take 1-2 t (more content not included)... Normal [facility] Veda 10-01-2024 [facility]INCENT Telephone (FAMPWS) AFSHIN ZEE ([id number]) 1955 M Date Time Provider Department 10/01/24 JACI ARROYO During your visit today, we recorded the following information about you: Kassandra Okeefe, RN 10/01/2024 12:30 PM Signed Please see 09/15 triage note. Pt was admitted to [facility] for 3 days and then discharged to the [facility]. Pt is to be discharged from there this coming SaturdayOctober 03. Eli calling to make hosp/NH follow up appt. She states pt had been falling a lot and is more weak. He has been having physical therapy. Also she wants Dr. Arroyo to know that Afshin's son (her step-son) was killed-stabbed to and that has been hard on them emotionally. They did find who killed him. Eli is going to make sure that she either brings copies from the [facility] or will try to have the [facility] fax his records from there to Dr. Arroyo. Hospital follow up made for 10/05 at 2 pm. Allergies As of Date: 10/01/2024 Noted Allergy Reaction LISINOPRIL 09/27/2016 7 - Swelling 18 - Angioedema Comments: Lip swelling after starting lisinopril. DOXYCYCLINE 12/11/2022 8 - GI Upset 14 - Other: See Comments Comments: GI upset (stomach ache/cramping/diarrhea ) and splotchy face SULFA (SULFONAMIDE ANTIBIOTICS) 03/11/2019 4 - Hives ZPAK (AZITHROMYCIN) 10/03/2018 4 - Hives Date Reviewed: 09/04/2024 Reviewed by: Joycelyn Woodruff MD - Fully Assessed Reason for Visit: Patient Update [1234] Hospital F/U [57] Prescriptions as of 10/01/2024 - metoprolol tartrate, short acting, (LOPRESSOR) 25 mg tablet Take 0.5 tablets by mouth two times a day. - fluticasone (FLONASE) 50 mcg/actuation nasal spray Use 1 [place] in each nostril two times a day. Rinse mouth after use. - losartan (COZAAR) 25 mg tablet Take 1 tablet by mouth once daily. - pregabalin (LYRICA) 25 mg capsule Take 25 mg at bedtime for 1 week followed by 25 mg twice daily for 1 week followed by 25 mg in the morning and 50 mg at bedtime for 1 week followed by 50 mg twice daily for 1 week followed by 50 mg in the morning and 75 mg at bedtime for 1 week followed by 75 mg twice daily. - baclofen 10 mg tablet Take 1 tablet by mouth three times a day. - amLODIPine (NORVASC) 10 mg tablet Take 0.5 tablets by mouth two times a day. Take 1/2 tablet twice daily - traZODone (DESYREL) 100 mg tablet Take 1 tablet by mouth daily at bedtime. - albuterol HFA (PROVENTIL HFA, VENTOLIN HFA) 90 mcg/actuation inhaler INHALE 2 PUFFS INTO THE LUNGS EVERY 4 HOURS NEEDED - multivitamin tablet Take 1 tablet by mouth once daily. - famotidine (PEPCID) 20 mg tablet Take 20 mg by mouth once daily. - hydroCHLOROthiazide 12.5 mg tablet Take 1 tablet by mouth every morning. - clotrimazole-betametha sone (LOTRISONE) cream Apply to affected area two times a day. - OXYGEN, HOME THERAPY, 4 L/min by Nasal Cannula route as directed. - busPIRone (BUSPAR) 15 mg tablet take 1 tablet by mouth three times a day - STIOLTO RESPIMAT 2.5-2.5 mcg/actuation inhaler inhale 2 puffs by mouth as directed once daily - LORazepam (ATIVAN) 1 mg tablet Take 1-2 tablets by mouth three times a day as needed for anxiety for up to 45 days. Take 1-2 pills three times a day - potassium chloride (K-TAB) 10 mEq tablet Take 2 tablets by mouth three times a day. - albuterol (PROVENTIL) 2.5 mg /3 mL (0.083 %) nebulizer solution INHALE 1 VIAL VIA NEBULIZER EVERY 4 HOURS NEEDED FOR WHEEZING/SHORTNESS OF BREATH. USE OVER 5-15 MINUTES - clopidogrel (PLAVIX) 75 mg tablet Take 75 mg by mouth once daily. - ezetimibe (ZETIA) 10 mg tablet Take 1 tablet by mouth once daily. - ferrous sulfate (FEROSUL) 325 mg (65 mg iron) tablet Take 1 tablet by mouth two times a day. - amiodarone (PACERONE) 100 mg tablet TAKE 1 TABLET BY MOUTH ONCE DAILY *DO NOT TAKE IF HEART RATE IS LESS THAN 40* - atorvastatin (LIPITOR) 40 mg tablet take 1 tablet by mouth once daily - escitalopram oxalate (LEXAPRO) 20 mg tablet take 1 tablet by mouth once daily - apixaban (ELIQUIS) 5 mg tab(s) take 1 tablet by mouth twice daily - acetaminophen (TYLENOL EXTRA STRENGTH) 500 mg tablet Take 2 tablets by mouth three times a day as needed for pain. - Blood Pressure Monitor kit 1 application twice daily. Measure patient for correct size. Patient needs cuff for left arm readings. - COMPOUNDED PRESCRIPTION Articulating AFO foot brace for right leg. Send to [employer]. Dx: I63.9 - COMPOUNDED PRESCRIPTION EMBER WALKER DX I63.9 weight 162 # Problem List As Of Date 10/01/2024 Noted Resolved Hyperlipidemia [E78.5] 06/06/2010 Elevated blood pressure [KZO8292] 06/06/2010 03/20/2019 Erectile dysfunction [N52.9] 06/06/2010 Cervicalgia [M54.2] 04/16/2016 Chronic right shoulder pain [M25.511, G89.29] 04/16/2016 Occlusion of left carotid artery [I65.22] 07/02/2016 Stro (more content not included)... [facility] ([id number]) 1955 M Date Time Provider Department 09/25/24 JACI ARROYO [facility] During your visit today, we recorded the following information about you: Rachel Buckley MA 09/25/2024 11:47 AM Signed Office received fax from [facility] requesting medical records regarding pt's incontinence supplies. Most recent OV on 07/13/24 has been faxed where urinary incontinence is discussed. Faxed back to [facility] at [phone]. Rachel Buckley MA Allergies As of Date: 09/25/2024 Noted Allergy Reaction LISINOPRIL 09/27/2016 7 - Swelling 18 - Angioedema Comments: Lip swelling after starting lisinopril. DOXYCYCLINE 12/11/2022 8 - GI Upset 14 - Other: See Comments Comments: GI upset (stomach ache/cramping/diarrhea ) and splotchy face SULFA (SULFONAMIDE ANTIBIOTICS) 03/11/2019 4 - Hives ZPAK (AZITHROMYCIN) 10/03/2018 4 - Hives Date Reviewed: 09/04/2024 Reviewed by: Joycelyn Woodruff MD - Fully Assessed Reason for Visit: Forms [943] Cmt: [facility] Prescriptions as of 09/25/2024 - metoprolol tartrate, short acting, (LOPRESSOR) 25 mg tablet Take 0.5 tablets by mouth two times a day. - fluticasone (FLONASE) 50 mcg/actuation nasal spray Use 1 [place] in each nostril two times a day. Rinse mouth after use. - losartan (COZAAR) 25 mg tablet Take 1 tablet by mouth once daily. - pregabalin (LYRICA) 25 mg capsule Take 25 mg at bedtime for 1 week followed by 25 mg twice daily for 1 week followed by 25 mg in the morning and 50 mg at bedtime for 1 week followed by 50 mg twice daily for 1 week followed by 50 mg in the morning and 75 mg at bedtime for 1 week followed by 75 mg twice daily. - baclofen 10 mg tablet Take 1 tablet by mouth three times a day. - amLODIPine (NORVASC) 10 mg tablet Take 0.5 tablets by mouth two times a day. Take 1/2 tablet twice daily - traZODone (DESYREL) 100 mg tablet Take 1 tablet by mouth daily at bedtime. - albuterol HFA (PROVENTIL HFA, VENTOLIN HFA) 90 mcg/actuation inhaler INHALE 2 PUFFS INTO THE LUNGS EVERY 4 HOURS NEEDED - multivitamin tablet Take 1 tablet by mouth once daily. - famotidine (PEPCID) 20 mg tablet Take 20 mg by mouth once daily. - hydroCHLOROthiazide 12.5 mg tablet Take 1 tablet by mouth every morning. - clotrimazole-betametha sone (LOTRISONE) cream Apply to affected area two times a day. - OXYGEN, HOME THERAPY, 4 L/min by Nasal Cannula route as directed. - busPIRone (BUSPAR) 15 mg tablet take 1 tablet by mouth three times a day - STIOLTO RESPIMAT 2.5-2.5 mcg/actuation inhaler inhale 2 puffs by mouth as directed once daily - LORazepam (ATIVAN) 1 mg tablet Take 1-2 tablets by mouth three times a day as needed for anxiety for up to 45 days. Take 1-2 pills three times a day - potassium chloride (K-TAB) 10 mEq tablet Take 2 tablets by mouth three times a day. - albuterol (PROVENTIL) 2.5 mg /3 mL (0.083 %) nebulizer solution INHALE 1 VIAL VIA NEBULIZER EVERY 4 HOURS NEEDED FOR WHEEZING/SHORTNESS OF BREATH. USE OVER 5-15 MINUTES - clopidogrel (PLAVIX) 75 mg tablet Take 75 mg by mouth once daily. - ezetimibe (ZETIA) 10 mg tablet Take 1 tablet by mouth once daily. - ferrous sulfate (FEROSUL) 325 mg (65 mg iron) tablet Take 1 tablet by mouth two times a day. - amiodarone (PACERONE) 100 mg tablet TAKE 1 TABLET BY MOUTH ONCE DAILY *DO NOT TAKE IF HEART RATE IS LESS THAN 40* - atorvastatin (LIPITOR) 40 mg tablet take 1 tablet by mouth once daily - escitalopram oxalate (LEXAPRO) 20 mg tablet take 1 tablet by mouth once daily - apixaban (ELIQUIS) 5 mg tab(s) take 1 tablet by mouth twice daily - acetaminophen (TYLENOL EXTRA STRENGTH) 500 mg tablet Take 2 tablets by mouth three times a day as needed for pain. - Blood Pressure Monitor kit 1 application twice daily. Measure patient for correct size. Patient needs cuff for left arm readings. - COMPOUNDED PRESCRIPTION Articulating AFO foot brace for right leg. Send to [employer]. Dx: I63.9 - COMPOUNDED PRESCRIPTION EMBER WALKER DX I63.9 weight 162 # Problem List As Of Date 09/25/2024 Noted Resolved Hyperlipidemia [E78.5] 06/06/2010 Elevated blood pressure [[id number]] 06/06/2010 03/20/2019 Erectile dysfunction [N52.9] 06/06/2010 Cervicalgia [M54.2] 04/16/2016 Chronic right shoulder pain [M25.511, G89.29] 04/16/2016 Occlusion of left carotid artery [I65.22] 07/02/2016 Stroke (cerebrum) (HCC) [I63.9] Aneurysm (HCC) [I72.9] Essential hypertension [I10] 06/25/2017 Anxiety [F41.9] 09/04/2017 Chronic insomnia [F51.04] 04/04/2018 Right hemiplegia (HCC) [G81.91] 04/30/2018 Bradycardia [R00.1] 03/20/2019 Dysphasia [R47.02] Coronary artery disease involving [place]os*04/02/2021 Paroxysmal atrial fibrillation (HCC) [I48.0] 04/03/2021 Aphasia as late effect of cerebrovascular accid*05/10/2022 Bacterial pneumonia [J15.9] 11/17/2022 03/12/2023 (more content not included)... Normal [facility] AFSHIN ZEE ([id number]) 1955 M Date Time Provider Department 09/21/24 DANIA AJ JR During your visit today, we recorded the following information about you: Pilar Velazquez LPN 09/21/2024 10:03 AM Signed called stating that Afshin is currently at the [facility]. She states that the nurse's do not have the correct instructions for his Lyrica slow titration. Copy of office note and Lyrica script faxed to [facility] at [phone]. Dania Aj Jr., MD 09/21/2024 12:22 PM Signed Lyrica was Rx'd by epilepsy. Dania Aj MD Allergies As of Date: 09/21/2024 Noted Allergy Reaction LISINOPRIL 09/27/2016 7 - Swelling 18 - Angioedema Comments: Lip swelling after starting lisinopril. DOXYCYCLINE 12/11/2022 8 - GI Upset 14 - Other: See Comments Comments: GI upset (stomach ache/cramping/diarrhea ) and splotchy face SULFA (SULFONAMIDE ANTIBIOTICS) 03/11/2019 4 - Hives ZPAK (AZITHROMYCIN) 10/03/2018 4 - Hives Date Reviewed: 09/04/2024 Reviewed by: Joycelyn Woodruff MD - Fully Assessed Reason for Visit: Medication Problem [65] Prescriptions as of 09/21/2024 - losartan (COZAAR) 25 mg tablet Take 1 tablet by mouth once daily. - pregabalin (LYRICA) 25 mg capsule Take 25 mg at bedtime for 1 week followed by 25 mg twice daily for 1 week followed by 25 mg in the morning and 50 mg at bedtime for 1 week followed by 50 mg twice daily for 1 week followed by 50 mg in the morning and 75 mg at bedtime for 1 week followed by 75 mg twice daily. - baclofen 10 mg tablet Take 1 tablet by mouth three times a day. - amLODIPine (NORVASC) 10 mg tablet Take 0.5 tablets by mouth two times a day. Take 1/2 tablet twice daily - traZODone (DESYREL) 100 mg tablet Take 1 tablet by mouth daily at bedtime. - albuterol HFA (PROVENTIL HFA, VENTOLIN HFA) 90 mcg/actuation inhaler INHALE 2 PUFFS INTO THE LUNGS EVERY 4 HOURS NEEDED - multivitamin tablet Take 1 tablet by mouth once daily. - famotidine (PEPCID) 20 mg tablet Take 20 mg by mouth once daily. - hydroCHLOROthiazide 12.5 mg tablet Take 1 tablet by mouth every morning. - clotrimazole-betametha sone (LOTRISONE) cream Apply to affected area two times a day. - OXYGEN, HOME THERAPY, 4 L/min by Nasal Cannula route as directed. - busPIRone (BUSPAR) 15 mg tablet take 1 tablet by mouth three times a day - STIOLTO RESPIMAT 2.5-2.5 mcg/actuation inhaler inhale 2 puffs by mouth as directed once daily - LORazepam (ATIVAN) 1 mg tablet Take 1-2 tablets by mouth three times a day as needed for anxiety for up to 45 days. Take 1-2 pills three times a day - potassium chloride (K-TAB) 10 mEq tablet Take 2 tablets by mouth three times a day. - albuterol (PROVENTIL) 2.5 mg /3 mL (0.083 %) nebulizer solution INHALE 1 VIAL VIA NEBULIZER EVERY 4 HOURS NEEDED FOR WHEEZING/SHORTNESS OF BREATH. USE OVER 5-15 MINUTES - clopidogrel (PLAVIX) 75 mg tablet Take 75 mg by mouth once daily. - ezetimibe (ZETIA) 10 mg tablet Take 1 tablet by mouth once daily. - ferrous sulfate (FEROSUL) 325 mg (65 mg iron) tablet Take 1 tablet by mouth two times a day. - amiodarone (PACERONE) 100 mg tablet TAKE 1 TABLET BY MOUTH ONCE DAILY *DO NOT TAKE IF HEART RATE IS LESS THAN 40* - atorvastatin (LIPITOR) 40 mg tablet take 1 tablet by mouth once daily - escitalopram oxalate (LEXAPRO) 20 mg tablet take 1 tablet by mouth once daily - apixaban (ELIQUIS) 5 mg tab(s) take 1 tablet by mouth twice daily - metoprolol tartrate, short acting, (LOPRESSOR) 25 mg tablet TAKE 1/2 TABLET BY MOUTH TWICE DAILY. HOLD IF HEART RATE IS LESS THAN 60 - acetaminophen (TYLENOL EXTRA STRENGTH) 500 mg tablet Take 2 tablets by mouth three times a day as needed for pain. - fluticasone (FLONASE) 50 mcg/actuation nasal spray Use 1 [place] in each nostril twice daily. Rinse mouth after use. - Blood Pressure Monitor kit 1 application twice daily. Measure patient for correct size. Patient needs cuff for left arm readings. - COMPOUNDED PRESCRIPTION Articulating AFO foot brace for right leg. Send to [employer]. Dx: I63.9 - COMPOUNDED PRESCRIPTION EMBER WALKER DX I63.9 weight 162 # Problem List As Of Date 09/21/2024 Noted Resolved Hyperlipidemia [E78.5] 06/06/2010 Elevated blood pressure [[id number]] 06/06/2010 03/20/2019 Erectile dysfunction [N52.9] 06/06/2010 Cervicalgia [M54.2] 04/16/2016 Chronic right shoulder pain [M25.511, G89.29] 04/16/2016 Occlusion of left carotid artery [I65.22] 07/02/2016 Stroke (cerebrum) (HCC) [I63.9] Aneurysm (HCC) [I72.9] Essential hypertension [I10] 06/25/2017 Anxiety [F41.9] 09/04/2017 Chronic insomnia [F51.04] 04/04/2018 Right hemiplegia (HCC) [G81.91] 04/30/2018 Bradycardia [R00.1] 03/20/2019 Dysphasia [R47.02] Coronary artery disease involving [place]*04/02/2021 Paroxysmal atrial fibrillati (more content not included)... Normal [facility] CNPN Telephone (NE50MN) AFSHIN ZEE ([id number]) 1955 M Date Time Provider Department 09/21/24 YESSI VALDEZ NE50MN During your visit today, we recorded the following information about you: Shikha Alonso RN 09/21/2024 9:27 AM Signed Pt's called [employer] and asked for an RN to reach out to them. Routed to Dr. Becerra's pool. DIANE Godfrey Tanya, RN 09/21/2024 11:08 AM Signed Patient was hospitalized for a [facility] at [facility] (not seizure related) and released to rehab. I spoke with Eli she is requesting titration schedule for Pregabalin be faxed to [facility] in [place]. Stated patient is on week 3. Review letter in [facility] DIANE Beatty Alena, PA-C 09/21/2024 11:44 AM Signed The schedule is below per last office visit note: Please start taking the following medication: Week 1: Take 25 mg at bedtime Week 2: 25 mg twice daily Week 3: 25 mg in the morning and 50 mg at bedtime Week 4: 50 mg twice daily Week 5: 50 mg in the morning and 75 mg at bedtime Week 6: 75 mg twice daily thereafter. JEREMY Hernandez Tanya, RN 09/21/2024 1:34 PM Signed Letter sent for signature. DIANE Beatty Tanya, RN 09/22/2024 12:29 PM Signed Received notice via [employer] that form/letter was signed by provider. Mildred Adame RN Allergies As of Date: 09/21/2024 Noted Allergy Reaction LISINOPRIL 09/27/2016 7 - Swelling 18 - Angioedema Comments: Lip swelling after starting lisinopril. DOXYCYCLINE 12/11/2022 8 - GI Upset 14 - Other: See Comments Comments: GI upset (stomach ache/cramping/diarrhea ) and splotchy face SULFA (SULFONAMIDE ANTIBIOTICS) 03/11/2019 4 - Hives ZPAK (AZITHROMYCIN) 10/03/2018 4 - Hives Date Reviewed: 09/04/2024 Reviewed by: Joycelyn Woodruff MD - Fully Assessed Reason for Visit: Beveler - Other [3602] Prescriptions as of 09/22/2024 - losartan (COZAAR) 25 mg tablet Take 1 tablet by mouth once daily. - pregabalin (LYRICA) 25 mg capsule Take 25 mg at bedtime for 1 week followed by 25 mg twice daily for 1 week followed by 25 mg in the morning and 50 mg at bedtime for 1 week followed by 50 mg twice daily for 1 week followed by 50 mg in the morning and 75 mg at bedtime for 1 week followed by 75 mg twice daily. - baclofen 10 mg tablet Take 1 tablet by mouth three times a day. - amLODIPine (NORVASC) 10 mg tablet Take 0.5 tablets by mouth two times a day. Take 1/2 tablet twice daily - traZODone (DESYREL) 100 mg tablet Take 1 tablet by mouth daily at bedtime. - albuterol HFA (PROVENTIL HFA, VENTOLIN HFA) 90 mcg/actuation inhaler INHALE 2 PUFFS INTO THE LUNGS EVERY 4 HOURS NEEDED - multivitamin tablet Take 1 tablet by mouth once daily. - famotidine (PEPCID) 20 mg tablet Take 20 mg by mouth once daily. - hydroCHLOROthiazide 12.5 mg tablet Take 1 tablet by mouth every morning. - clotrimazole-betametha sone (LOTRISONE) cream Apply to affected area two times a day. - OXYGEN, HOME THERAPY, 4 L/min by Nasal Cannula route as directed. - busPIRone (BUSPAR) 15 mg tablet take 1 tablet by mouth three times a day - STIOLTO RESPIMAT 2.5-2.5 mcg/actuation inhaler inhale 2 puffs by mouth as directed once daily - LORazepam (ATIVAN) 1 mg tablet Take 1-2 tablets by mouth three times a day as needed for anxiety for up to 45 days. Take 1-2 pills three times a day - potassium chloride (K-TAB) 10 mEq tablet Take 2 tablets by mouth three times a day. - albuterol (PROVENTIL) 2.5 mg /3 mL (0.083 %) nebulizer solution INHALE 1 VIAL VIA NEBULIZER EVERY 4 HOURS NEEDED FOR WHEEZING/SHORTNESS OF BREATH. USE OVER 5-15 MINUTES - clopidogrel (PLAVIX) 75 mg tablet Take 75 mg by mouth once daily. - ezetimibe (ZETIA) 10 mg tablet Take 1 tablet by mouth once daily. - ferrous sulfate (FEROSUL) 325 mg (65 mg iron) tablet Take 1 tablet by mouth two times a day. - amiodarone (PACERONE) 100 mg tablet TAKE 1 TABLET BY MOUTH ONCE DAILY *DO NOT TAKE IF HEART RATE IS LESS THAN 40* - atorvastatin (LIPITOR) 40 mg tablet take 1 tablet by mouth once daily - escitalopram oxalate (LEXAPRO) 20 mg tablet take 1 tablet by mouth once daily - apixaban (ELIQUIS) 5 mg tab(s) take 1 tablet by mouth twice daily - metoprolol tartrate, short acting, (LOPRESSOR) 25 mg tablet TAKE 1/2 TABLET BY MOUTH TWICE DAILY. HOLD IF HEART RATE IS LESS THAN 60 - acetaminophen (TYLENOL EXTRA STRENGTH) 500 mg tablet Take 2 tablets by mouth three times a day as needed for pain. - fluticasone (FLONASE) 50 mcg/actuation nasal spray Use 1 [place] in each nostril twice daily. Rinse mouth after use. - Blood Pressure Monitor kit 1 application twice daily. Measure patient for correct size. Patient needs cuff for left arm readings. - COMPOUNDED PRESCRIPTION Articulating AFO foot brace for (more content not included)... Normal [facility] .GFRon 09-18-2024 Estimated Glomerular Filtration Rate 56 ml/min/1.73sqm Normal [facility] Comment on above: Result Comment: Stages of Chronic Kidney Disease (CKD) Stage Description eGFR(ml/min/1.73 sq.m.) CKD 1 Normal kidney function or >=90 normal kindney function with possible kidney damage (ex. Proteinuria) CKD 2 Kidney damage with mild loss 60-89 of kidney function CKD 3a Mild to moderate loss of kidney 45-59 function CKD 3b Moderate to severe loss of 30-44 of kindey function CKD 4 Severe loss of kidney function 15-29 CKD 5 Kidney failure <15 Note: (go live 2024) the eGFR calculation was updated to the 2020 CKD-EPI creatinine equation without a race factor to calculate the eGFR results. Performed By: #### Casey DIAZ UA #### [address] [address] BMPon 09-18-2024 BUN/Creatinine Ratio 12 ratio Normal 7-27 [facility] Comment on above: Performed By: #### Casey DIAZ UA #### [address] [address] Calcium [Mass/Vol] 8.9 mg/dL Normal 8.4-10.2 [facility] Comment on above: Performed By: #### U JOE UA #### [address] [address] Chloride [Moles/Vol] 107 mmol/L Normal 98-107 [facility] Comment on above: Performed By: #### U JOE UA #### [address] [address] CO2 [Moles/Vol] 26 mmol/L Normal 23-31 [facility] Comment on above: Performed By: #### U JOE UA #### [address] [address] Creatinine [Mass/Vol] 1.36 mg/dL High 0.70-1.30 [facility] Comment on above: Result Comment: Test ing performed on Siemens Dimension EXL analyzer using a modified kinetic Omid technique. Performed By: #### FABI MEZA #### [address] [address] Electrolyte Balance 7.0 mEq/L Normal 4.0-15.0 [facility] Comment on above: Performed By: #### Casey DIAZ UA #### [address] [address] Glucose [Mass/Vol] 98 mg/dL Normal 80-115 [facility] Comment on above: Performed By: #### FABI MEZA #### [address] [address] Potassium [Moles/Vol] 4.4 mmol/L Normal 3.5-5.1 [facility] Comment on above: Performed By: #### FABI MEZA #### [address] [address] Sodium [Moles/Vol] 140 mmol/L Normal 136-145 [facility] Comment on above: Performed By: #### FABI MEZA #### [address] [address] Urea nitrogen [Mass/Vol] 17 mg/dL Normal 7-18 [facility] Comment on above: Performed By: #### Casey DIAZ UA #### [address] [address] LABORATORYOrdered By: SYSTEM SYSTEM on 09-18-2024 Calcium [Mass/Vol] 8.9 mg/dL Normal 8.4 - 10. 2 mg/dL AO ADM SS Chloride [Moles/Vol] 107 mmol/L Normal 98 - 10 7 mmol/L AO ADM SS CO2 [Moles/Vol] 26 mmol/L Normal 23 - 31 mmol/L AO ADM SS Creatinine [Mass/Vol] 1.36 mg/dL High 0.70 - 1.30 mg/dL AO ADM SS Comment on above: Interpretive Data: T esting performed on Siemens Dimension EXL analyzer using a modified kinetic Omid technique. Electrolyte Balance 7.0 mEq/L Normal 4.0 - 15 .0 mEq/L AO ADM SS Estimated Glomerular Filtration Rate 56 ml/min/1.73sqm Invalid Interpretation Code AO Chemistry S Comment on above: Interpretive Data: Stages of Chronic Kidney Disease (CKD) Stage Description eGFR(ml/min/1.73 sq.m.) CKD 1 Normal kidney function or >=90 normal kindney function with possible kidney damage (ex. Proteinuria) CKD 2 Kidney damage with mild loss 60-89 of kidney function CKD 3a Mild to moderate loss of kidney 45-59 function CKD 3b Moderate to severe loss of 30-44 of kindey function CKD 4 Severe loss of kidney function 15-29 CKD 5 Kidney failure <15 Note: (go live 2024) the eGFR calculation was updated to the 2020 CKD-EPI creatinine equation without a race factor to calculate the eGFR results. Glucose [Mass/Vol] 98 mg/dL Normal 80 - 115 mg/dL AO ADM SS Magnesium [Mass/Vol] 2.2 mg/dL Normal 1.8 - 2 .4 mg/dL AO ADM SS Potassium [Moles/Vol] 4.4 mmol/L Normal 3.5 - 5.1 mmol/L AO ADM SS Sodium [Moles/Vol] 140 mmol/L Normal 136 - 145 mmol/L AO ADM SS Urea nitrogen [Mass/Vol] 17 mg/dL Normal 7 - 18 mg/dL AO ADM SS Urea nitrogen/Creatinine [Mass ratio] 12 ratio Normal 7 - 27 ratio AO ADM SS MGon 09-18-2024 Magnesium [Mass/Vol] 2.2 mg/dL Normal 1.8-2.4 [facility] Comment on above: Performed By: #### U JOE UA #### [address] [address] .GFRon 09-17-2024 Estimated Glomerular Filtration Rate 68 ml/min/1.73sqm Normal [facility] Comment on above: Result Comment: Stages of Chronic Kidney Disease (CKD) Stage Description eGFR(ml/min/1.73 sq.m.) CKD 1 Normal kidney function or >=90 normal kindney function with possible kidney damage (ex. Proteinuria) CKD 2 Kidney damage with mild loss 60-89 of kidney function CKD 3a Mild to moderate loss of kidney 45-59 function CKD 3b Moderate to severe loss of 30-44 of kindey function CKD 4 Severe loss of kidney function 15-29 CKD 5 Kidney failure <15 Note: (go live 2024) the eGFR calculation was updated to the 2020 CKD-EPI creatinine equation without a race factor to calculate the eGFR results. Performed By: #### G FR MG, BMP #### [address] [address] BMPon 09-17-2024 BUN/Creatinine Ratio 13 ratio Normal 7-27 [facility] Comment on above: Performed By: #### Deirdre HOLLINS MG, BMP #### [address] [address] Calcium [Mass/Vol] 9.1 mg/dL Normal 8.4-10.2 [facility] Comment on above: Performed By: #### Deirdre HOLLINS MG, BMP #### [address] [address] Chloride [Moles/Vol] 105 mmol/L Normal 98-107 [facility] Comment on above: Performed By: #### Deirdre HOLLINS MG, BMP #### [address] [address] CO2 [Moles/Vol] 28 mmol/L Normal 23-31 [facility] Comment on above: Performed By: #### G FR MG, BMP #### [address] [address] Creatinine [Mass/Vol] 1.16 mg/dL Normal 0.70-1.30 [facility] Comment on above: Result Comment: Test ing performed on Siemens Dimension EXL analyzer using a modified kinetic Omid technique. Performed By: #### Deirdre HOLLINS MG, BMP #### [address] [address] Electrolyte Balance 7.0 mEq/L Normal 4.0-15.0 [facility] Comment on above: Performed By: #### Deirdre HOLLINS MG, BMP #### [address] [place] [address] Glucose [Mass/Vol] 88 mg/dL Normal 80-115 [facility] Comment on above: Performed By: #### G FR, MG, BMP #### [address] [place], [place] [address] Potassium [Moles/Vol] 4.3 mmol/L Normal 3.5-5.1 [facility] Comment on above: Performed By: #### G FR, MG, BMP #### [address] [address] Sodium [Moles/Vol] 140 mmol/L Normal 136-145 [facility] Comment on above: Performed By: #### G FR, MG, BMP #### [address] [address] Urea nitrogen [Mass/Vol] 15 mg/dL Normal 7-18 [facility] Comment on above: Performed By: #### G FR, MG, BMP #### [address] [address] LABORATORYOrdered By: SYSTEM SYSTEM on 09-17-2024 Calcium [Mass/Vol] 9.1 mg/dL Normal 8.4 - 10. 2 mg/dL AO ADM SS Chloride [Moles/Vol] 105 mmol/L Normal 98 - 10 7 mmol/L AO ADM SS CO2 [Moles/Vol] 28 mmol/L Normal 23 - 31 mmol/L AO ADM SS Creatinine [Mass/Vol] 1.16 mg/dL Normal 0.70 - 1.30 mg/dL AO ADM SS Comment on above: Interpretive Data: T esting performed on [employer] Dimension EXL analyzer using a modified kinetic Omid technique. Electrolyte Balance 7.0 mEq/L Normal 4.0 - 15 .0 mEq/L AO ADM SS Estimated Glomerular Filtration Rate 68 ml/min/1.73sqm Invalid Interpretation Code AO Chemistry S Comment on above: Interpretive Data: Stages of Chronic Kidney Disease (CKD) Stage Description eGFR(ml/min/1.73 sq.m.) CKD 1 Normal kidney function or >=90 normal kindney function with possible kidney damage (ex. Proteinuria) CKD 2 Kidney damage with mild loss 60-89 of kidney function CKD 3a Mild to moderate loss of kidney 45-59 function CKD 3b Moderate to severe loss of 30-44 of kindey function CKD 4 Severe loss of kidney function 15-29 CKD 5 Kidney failure <15 Note: (go live 2024) the eGFR calculation was updated to the 2020 CKD-EPI creatinine equation without a race factor to calculate the eGFR results. Glucose [Mass/Vol] 88 mg/dL Normal 80 - 115 mg/dL AO ADM SS Magnesium [Mass/Vol] 2.1 mg/dL Normal 1.8 - 2 .4 mg/dL AO ADM SS Potassium [Moles/Vol] 4.3 mmol/L Normal 3.5 - 5.1 mmol/L AO ADM SS Sodium [Moles/Vol] 140 mmol/L Normal 136 - 145 mmol/L AO ADM SS Urea nitrogen [Mass/Vol] 15 mg/dL Normal 7 - 18 mg/dL AO ADM SS Urea nitrogen/Creatinine [Mass ratio] 13 ratio Normal 7 - 27 ratio AO ADM SS MGon 09-17-2024 Magnesium [Mass/Vol] 2.1 mg/dL Normal 1.8-2.4 [facility] Comment on above: Performed By: #### G FR, MG, BMP #### [address] [address] .Auto Diffon 09-16-2024 Basophil, Absolute 0.1 10 3/mcL Normal 0.0-0.2 [facility] Comment on above: Performed By: #### U AMICAO, UA #### [address] [place], [place] [address] Basophils/100 WBC (Bld) 0.9 % Normal 0.0-2.5 [facility] Comment on above: Performed By: #### U AMICAO, UA #### [address] [place], [place] [address] Eosinophil, Absolute 0.6 10 3/mcL Normal 0.0-0.7 [facility] Comment on above: Performed By: #### U AMICAO, UA #### [address] [place], [place] [address] Eosinophils/100 WBC (Bld) 6.0 % Normal 0.0-7.0 [facility] Comment on above: Performed By: #### U AMICAO, UA #### [address] [address] Lymphocyte, Absolute 2.3 10 3/mcL Normal 0.9-4.3 [facility] Comment on above: Performed By: #### U AMICAO, UA #### [address] [address] Lymphocytes/100 WBC (Bld) 21.0 % Normal 20.0-40.0 [facility] Comment on above: Performed By: #### U AMICAO, UA #### [address] [address] Monocyte, Absolute 1.3 10 3/mcL Normal 0.1-1.4 [facility] Comment on above: Performed By: #### U AMICAO, UA #### [address] [address] Monocytes/100 WBC (Bld) 12.1 % Normal 2.0-13.0 [facility] Comment on above: Performed By: #### U AMICAO, UA #### [address] [address] Neutrophils/100 WBC (Bld) 60.0 % Normal 50.0-75.0 [facility] Comment on above: Performed By: #### U AMICAO, UA #### [address] [address] .GFRon 09-16-2024 Estimated Glomerular Filtration Rate 68 ml/min/1.73sqm Normal [facility] Comment on above: Result Comment: Stages of Chronic Kidney Disease (CKD) Stage Description eGFR(ml/min/1.73 sq.m.) CKD 1 Normal kidney function or >=90 normal kindney function with possible kidney damage (ex. Proteinuria) CKD 2 Kidney damage with mild loss 60-89 of kidney function CKD 3a Mild to moderate loss of kidney 45-59 function CKD 3b Moderate to severe loss of 30-44 of kindey function CKD 4 Severe loss of kidney function 15-29 CKD 5 Kidney failure <15 Note: (go live 2024) the eGFR calculation was updated to the 2020 CKD-EPI creatinine equation without a race factor to calculate the eGFR results. Performed By: #### G FR MG, BMP #### [address] [address] .NEUABSon 09-16-2024 Neutrophil, Absolute 6.5 10 3/mcL Normal 2.3-8.1 [facility] Comment on above: Performed By: #### U AMICAO, UA #### [address] [address] BMPon 09-16-2024 BUN/Creatinine Ratio 15 ratio Normal 7-27 [facility] Comment on above: Performed By: #### G FR MG, BMP #### [address] [address] Calcium [Mass/Vol] 8.8 mg/dL Normal 8.4-10.2 [facility] Comment on above: Performed By: #### G FR MG, BMP #### [address] [address] Chloride [Moles/Vol] 109 mmol/L High 98-107 [facility] Comment on above: Performed By: #### G FR MG, BMP #### [address] [address] CO2 [Moles/Vol] 27 mmol/L Normal 23-31 [facility] Comment on above: Performed By: #### G FR MG, BMP #### [address] [address] Creatinine [Mass/Vol] 1.16 mg/dL Normal 0.70-1.30 [facility] Comment on above: Result Comment: Test ing performed on Siemens Dimension EXL analyzer using a modified kinetic Omid technique. Performed By: #### G FR, MG, BMP #### [address] [address] Electrolyte Balance 7.0 mEq/L Normal 4.0-15.0 [facility] Comment on above: Performed By: #### G FR, MG, BMP #### [address] [address] Glucose [Mass/Vol] 79 mg/dL Low 80-115 [facility] Comment on above: Performed By: #### G FR, MG, BMP #### [address] [address] Potassium [Moles/Vol] 4.3 mmol/L Normal 3.5-5.1 [facility] Comment on above: Performed By: #### G FR, MG, BMP #### [address] [address] Sodium [Moles/Vol] 143 mmol/L Normal 136-145 [facility] Comment on above: Performed By: #### G FR, MG, BMP #### [address] [address] Urea nitrogen [Mass/Vol] 17 mg/dL Normal 7-18 [facility] Comment on above: Performed By: #### G FR, MG, BMP #### [address] [address] CBCon 09-16-2024 Erythrocyte distribution width (RBC) [Ratio] 13.5 % Normal 11.5-15.5 [facility] Comment on above: Performed By: #### U AMICAO, UA #### [address] [address] Hematocrit (Bld) [Volume fraction] 40.4 % Normal 40.0-52.0 [facility] Comment on above: Performed By: #### U AMICAO, UA #### [address] [address] Hgb 13.9 G/dL Normal 13.0-17.5 [facility] Comment on above: Performed By: #### U AMICAO, UA #### [address] [address] MCH (RBC) [Entitic mass] 31.6 pg Normal 27.0-33.0 [facility] Comment on above: Performed By: #### U JOE, UA #### [facility] [address] [place], [place] [address] MCHC 34.3 G/dL Normal 32.0-36.0 [facility] Comment on above: Performed By: #### U JOE, UA #### [facility] [address] [place], [place] [address] MCV (RBC) [Entitic vol] 92.0 fL Normal 81.0-100.0 [facility] Comment on above: Performed By: #### U JOE, UA #### [address] [place], [place] [address] Platelet 224 10 3/mcL Normal 150-450 [facility] Comment on above: Performed By: #### Casey DIAZ, UA #### [address] [place], [place] [address] Platelet mean volume (Bld) [Entitic vol] 9.1 fL Normal 6.4-10.5 [facility] Comment on above: Performed By: #### U JOE, UA #### [address] [address] RBC 4.39 10 6/mcL Low 4.50-6.00 [facility] Comment on above: Performed By: #### U JOE, UA #### [address] [address] WBC 10.8 10 3/mcL Normal 4.5-10.8 [facility] Comment on above: Performed By: #### U NICOLASO, UA #### [address] [address] LABORATORYOrdered By: Deejay Jin on 09-16-2024 Adenovirus DNA PAMELA+non-probe Ql (Nph) Not Detected *NA* (09/16/24 8:22 AM) Invalid Interpretation Code Not Detected AH Auto Viro/Sero SS B. parapertussis [id number] DNA PAMELA+non-probe Ql (Nph) Not Detected *NA* (09/16/24 8:22 AM) Invalid Interpretation Code Not Detected AH Auto Viro/Sero SS B. pertussis toxin promoter region PAMELA+non-probe Ql (Nph) Not Detected *NA* (09/16/24 8:22 AM) Invalid Interpretation Code Not Detected AH Auto Viro/Sero SS C. pneumoniae DNA PAMELA+non-probe Ql (Nph) Not Detected *NA* (09/16/24 8:22 AM) Invalid Interpretation Code Not Detected AH Auto Viro/Sero SS FLUAV RNA PAMELA+non-probe Ql (Nph) Not Detected *NA* (09/16/24 8:22 AM) Invalid Interpretation Code Not Detected AH Auto Viro/Sero SS FLUBV RNA PAMELA+non-probe Ql (Nph) Not Detected *NA* (09/16/24 8:22 AM) Invalid Interpretation Code Not Detected AH Auto Viro/Sero SS hMPV RNA PAMELA+non-probe Ql (Nph) Not Detected *NA* (09/16/24 8:22 AM) Invalid Interpretation Code Not Detected AH Auto Viro/Sero SS M. pneumoniae DNA PAMELA+non-probe Ql (Nph) Not Detected *NA* (09/16/24 8:22 AM) Invalid Interpretation Code Not Detected AH Auto Viro/Sero SS Parainfluenza virus 1 RNA PAMELA+non-probe Ql (Nph) Not Detected *NA* (09/16/24 8:22 AM) Invalid Interpretation Code Not Detected AH Auto Viro/Sero SS Parainfluenza virus 2 RNA PAMELA+non-probe Ql (Nph) Not Detected *NA* (09/16/24 8:22 AM) Invalid Interpretation Code Not Detected AH Auto Viro/Sero SS Parainfluenza virus 3 RNA PAMELA+non-probe Ql (Nph) Not Detected *NA* (09/16/24 8:22 AM) Invalid Interpretation Code Not Detected AH Auto Viro/Sero SS Parainfluenza virus 4 RNA PAMELA+non-probe Ql (Nph) Not Detected *NA* (09/16/24 8:22 AM) Invalid Interpretation Code Not Detected AH Auto Viro/Sero SS Rhinovirus+Enterovirus RNA PAMELA+non-probe Ql (Nph) Not Detected *NA* (09/16/24 8:22 AM) Invalid Interpretation Code Not Detected AH Auto Viro/Sero SS RSV RNA PAMELA+non-probe Ql (Nph) Not Detected *NA* (09/16/24 8:22 AM) Invalid Interpretation Code Not Detected AH Auto Viro/Sero SS SARS-CoV-2 (COVID-19) RNA PAMELA+probe Ql (Resp) Not Detected 5 *NA* (09/16/24 8:22 AM) Invalid Interpretation Code Not Detected AH Auto Viro/Sero SS Comment on above: Interpretive Data: T his assay has been validated in the [facility] for use with nasopharyngeal specimens in [facility]. If a non-validated specimen or test collection method was used, please interpret the results with caution, especially if the test result is negative. A positive test result for COVID-19 indicates that RNA from SARS-CoV-2 was detected, and the patient is infected with the virus and presumed to be contagious. Laboratory test results should always be considered in the context of clinical observations and epidemiological data in making a final diagnosis and patient management decisions. Patient management should follow current CDC guidelines. A negative test result for this test means that SARS-CoV-2 RNA was not present in the specimen above the limit of detection. However, a negative result does not rule out COVID-19 and should not be used as the sole basis for treatment or patient management decisions. A negative result does not exclude the possibility of COVID-19. When diagnostic testing is negative, the possibility of a false negative result should be considered in the context of a patient's recent exposures and the presence of clinical signs and symptoms consistent with COVID-19. The possibility of a false negative result should especially be considered if the patient s recent exposures or clinical presentation indicate that COVID-19 is likely, and diagnostic tests for other causes of illness (e.g., other respiratory illness) are negative. If COVID-19 is still suspected based on exposure history together with other clinical findings, re-testing should be considered by healthcare providers in consultation with public health authorities. LABORATORYOrdered By: SYSTEM SYSTEM on 09-16-2024 Basophils (Bld) [#/Vol] 0.1 103/mcL Normal 0.0 - 0.2 10^3/mcL AO Workflow SS Basophils/100 WBC (Bld) 0.9 % Normal 0.0 - 2.5 % AO Workflow SS Calcium [Mass/Vol] 8.8 mg/dL Normal 8.4 - 10. 2 mg/dL AO ADM SS Chloride [Moles/Vol] 109 mmol/L High 98 - 10 7 mmol/L AO ADM SS CO2 [Moles/Vol] 27 mmol/L Normal 23 - 31 mmol/L AO ADM SS Creatinine [Mass/Vol] 1.16 mg/dL Normal 0.70 - 1.30 mg/dL AO ADM SS Comment on above: Interpretive Data: T esting performed on Siemens Dimension EXL analyzer using a modified kinetic Omid technique. Electrolyte Balance 7.0 mEq/L Normal 4.0 - 15 .0 mEq/L AO ADM SS Eosinophil, Absolute 0.6 103/mcL Normal 0.0 - 0 .7 10^3/mcL AO Workflow SS Eosinophils/100 WBC (Bld) 6.0 % Normal 0.0 - 7.0 % AO Workflow SS Erythrocyte distribution width (RBC) [Ratio] 13.5 % Normal 11.5 - 15.5 % AO Workflow SS Estimated Glomerular Filtration Rate 68 ml/min/1.73sqm Invalid Interpretation Code AO Chemistry S Comment on above: Interpretive Data: Stages of Chronic Kidney Disease (CKD) Stage Description eGFR(ml/min/1.73 sq.m.) CKD 1 Normal kidney function or >=90 normal kindney function with possible kidney damage (ex. Proteinuria) CKD 2 Kidney damage with mild loss 60-89 of kidney function CKD 3a Mild to moderate loss of kidney 45-59 function CKD 3b Moderate to severe loss of 30-44 of kindey function CKD 4 Severe loss of kidney function 15-29 CKD 5 Kidney failure <15 Note: (go live 2024) the eGFR calculation was updated to the 2020 CKD-EPI creatinine equation without a race factor to calculate the eGFR results. Glucose [Mass/Vol] 79 mg/dL Low 80 - 115 mg/dL AO ADM SS Hematocrit (Bld) [Volume fraction] 40.4 % Normal 40.0 - 52.0 % AO Workflow SS Hemoglobin (Bld) [Mass/Vol] 13.9 G/dL Normal 13.0 - 17.5 G/dL AO Workflow SS Lymphocytes (Bld) [#/Vol] 2.3 103/mcL Normal 0.9 - 4.3 10^3/mcL AO Workflow SS Lymphocytes/100 WBC (Bld) 21.0 % Normal 20.0 - 40.0 % AO Workflow SS Magnesium [Mass/Vol] 2.1 mg/dL Normal 1.8 - 2 .4 mg/dL AO ADM SS MCH (RBC) [Entitic mass] 31.6 pg Normal 27. 0 - 33.0 pg AO Workflow SS MCHC 34.3 G/dL Normal 32.0 - 36.0 G/dL AO Workflow SS MCV (RBC) [Entitic vol] 92.0 fL Normal 81.0 - 100.0 fL AO Workflow SS Monocytes (Bld) [#/Vol] 1.3 103/mcL Normal 0.1 - 1.4 10^3/mcL AO Workflow SS Monocytes/100 WBC (Bld) 12.1 % Normal 2.0 - 13.0 % AO Workflow SS Neutrophils (Bld) [#/Vol] 6.5 103/mcL Normal 2.3 - 8.1 10^3/mcL AO Workflow SS Neutrophils/100 WBC (Bld) 60.0 % Normal 50.0 - 75.0 % AO Workflow SS Platelet mean volume (Bld) [Entitic vol] 9.1 fL Normal 6.4 - 10.5 fL AO Workflow SS Platelets (Bld) [#/Vol] 224 103/mcL Normal 150 - 450 10^3/mcL AO Workflow SS Potassium [Moles/Vol] 4.3 mmol/L Normal 3.5 - 5.1 mmol/L AO ADM SS RBC (Bld) [#/Vol] 4.39 106/mcL Low 4.50 - 6.0 0 10^6/mcL AO Workflow SS Sodium [Moles/Vol] 143 mmol/L Normal 136 - 145 mmol/L AO ADM SS Urea nitrogen [Mass/Vol] 17 mg/dL Normal 7 - 18 mg/dL AO ADM SS Urea nitrogen/Creatinine [Mass ratio] 15 ratio Normal 7 - 27 ratio AO ADM SS WBC (Bld) [#/Vol] 10.8 103/mcL Normal 4.5 - 10.8 10^3/mcL AO Workflow SS MGon 09-16-2024 Magnesium [Mass/Vol] 2.1 mg/dL Normal 1.8-2.4 [facility] Comment on above: Performed By: #### G FR, MG, BMP #### [address] [address] RESCVIDon 09-16-2024 Adenovirus Not detected Normal Not Detected [facility] Comment on above: Performed By: #### R ESCVID #### [facility] [address] [place] [address] Bordetella Parapertussis Not detected Normal Not Detected [facility] Comment on above: Performed By: #### R ESCVID #### [facility] [address] [place] [address] Bordetella Pertussis Not detected Normal Not Detected [facility] Comment on above: Performed By: #### R ESCVID #### [facility] [address] [place] [address] Chlamydophila pneumoniae Not detected Normal Not Detected [facility] Comment on above: Performed By: #### R ESCVID #### [facility] [address] [place] [id number] Coronavirus 229E (Not COVID-19) Not detected Normal Not Detected [facility] Comment on above: Performed By: #### R ESCVID #### [facility] [address] [place] [address] Coronavirus HKU1 (Not COVID-19) Not detected Normal Not Detected [facility] Comment on above: Performed By: #### R ESCVID #### [facility] [address] [place], [place] [id number] Coronavirus NL63 (Not COVID-19) Not detected Normal Not Detected [facility] Comment on above: Performed By: #### R ESCVID #### [facility] [address] [place] [address] Coronavirus OC43 (Not COVID-19) Not detected Normal Not Detected [facility] Comment on above: Performed By: #### R ESCVID #### [facility] [address] [place] [address] Human Metapneumovirus Not detected Normal Not Detected [facility] Comment on above: Performed By: #### R ESCVID #### [facility] [address] [place] [address] Influenza A Not detected Normal Not Detected [facility] Comment on above: Performed By: #### R ESCVID #### [facility] [address] [place], [place] [id number] Influenza B Not detected Normal Not Detected [facility] Comment on above: Performed By: #### R ESCVID #### [facility] [address] [place] [address] Mycoplasma pneumoniae Not detected Normal Not Detected [facility] Comment on above: Performed By: #### R ESCVID #### [facility] [address] [place] [address] Parainfluenza 1 Not detected Normal Not Detected [facility] Comment on above: Performed By: #### R ESCVID #### [facility] [address] [place] [address] Parainfluenza 2 Not detected Normal Not Detected [facility] Comment on above: Performed By: #### R ESCVID #### [facility] [address] [place] [address] Parainfluenza 3 Not detected Normal Not Detected [facility] Comment on above: Performed By: #### R ESCVID #### [place] [address] Parainfluenza 4 Not detected Normal Not Detected [facility] Comment on above: Performed By: #### R ESCVID #### [place] [address] Respiratory Syncytial Virus Not detected Normal Not Detected [facility] Comment on above: Performed By: #### R ESCVID #### [place] [address] Rhinovirus/Enterovirus Not detected Normal Not Detected [facility] Comment on above: Performed By: #### R ESCVID #### [place] [address] SARS-CoV-2 (COVID-19) RNA PAMELA+probe Ql (Unsp spec) Not detected Normal Not Detected [facility] Comment on above: Result Comment: This assay has been validated in the [facility] for use with nasopharyngeal specimens in [facility]. If a non-validated specimen or test collection method was used, please interpret the results with caution, especially if the test result is negative. A positive test result for COVID-19 indicates that RNA from SARS-CoV-2 was detected, and the patient is infected with the virus and presumed to be contagious. Laboratory test results should always be considered in the context of clinical observations and epidemiological data in making a final diagnosis and patient management decisions. Patient management should follow current CDC guidelines. A negative test result for this test means that SARS-CoV-2 RNA was not present in the specimen above the limit of detection. However, a negative result does not rule out COVID-19 and should not be used as the sole basis for treatment or patient management decisions. A negative result does not exclude the possibility of COVID-19. When diagnostic testing is negative, the possibility of a false negative result should be considered in the context of a patient's recent exposures and the presence of clinical signs and symptoms consistent with COVID-19. The possibility of a false negative result should especially be considered if the patient???s recent exposures or clinical presentation indicate that COVID-19 is likely, and diagnostic tests for other causes of illness (e.g., other respiratory illness) are negative. If COVID-19 is still suspected based on exposure history together with other clinical findings, re-testing should be considered by healthcare providers in consultation with public health authorities. Performed By: #### R ESCVID #### [place] [address] .Auto Diffon 09-15-2024 Basophil, Absolute 0.1 10 3/mcL Normal 0.0-0.2 [facility] Comment on above: Performed By: #### U JOE UA #### [address] [address] Basophils/100 WBC (Bld) 1.0 % Normal 0.0-2.5 [facility] Comment on above: Performed By: #### U JOE UA #### [address] [address] Eosinophil, Absolute 0.5 10 3/mcL Normal 0.0-0.7 [facility] Comment on above: Performed By: #### U JOE UA #### [address] [address] Eosinophils/100 WBC (Bld) 4.4 % Normal 0.0-7.0 [facility] Comment on above: Performed By: #### U AMICAO, UA #### [address] [address] Lymphocyte, Absolute 1.8 10 3/mcL Normal 0.9-4.3 [facility] Comment on above: Performed By: #### U AMICAO, UA #### [address] [address] Lymphocytes/100 WBC (Bld) 15.4 % Low 20.0-40.0 [facility] Comment on above: Performed By: #### U AMICAO, UA #### [address] [address] Monocyte, Absolute 1.1 10 3/mcL Normal 0.1-1.4 [facility] Comment on above: Performed By: #### U AMICAO, UA #### [address] [address] Monocytes/100 WBC (Bld) 9.2 % Normal 2.0-13.0 [facility] Comment on above: Performed By: #### U AMICAO, UA #### [address] [address] Neutrophils/100 WBC (Bld) 70.0 % Normal 50.0-75.0 [facility] Comment on above: Performed By: #### U AMICAO, UA #### [address] [address] .GFRon 09-15-2024 Estimated Glomerular Filtration Rate 62 ml/min/1.73sqm Normal [facility] Comment on above: Result Comment: Stages of Chronic Kidney Disease (CKD) Stage Description eGFR(ml/min/1.73 sq.m.) CKD 1 Normal kidney function or >=90 normal kindney function with possible kidney damage (ex. Proteinuria) CKD 2 Kidney damage with mild loss 60-89 of kidney function CKD 3a Mild to moderate loss of kidney 45-59 function CKD 3b Moderate to severe loss of 30-44 of kindey function CKD 4 Severe loss of kidney function 15-29 CKD 5 Kidney failure <15 Note: (go live 2024) the eGFR calculation was updated to the 2020 CKD-EPI creatinine equation without a race factor to calculate the eGFR results. Performed By: #### U AMICAO UA #### [place] [address] .MDWon 09-15-2024 Monocyte Distribution Width 19.00 Normal 0.00-20.00 [facility] Comment on above: Result Comment: For ED adult patients suspected of sepsis, MDW<=20.0 does not rule out sepsis or risk of sepsis Performed By: #### U AMICAO UA #### [place] [address] .NEUABSon 09-15-2024 Neutrophil, Absolute 8.1 10 3/mcL Normal 2.3-8.1 [facility] Comment on above: Performed By: #### U AMICAO UA #### [place] [address] .Urinalysis Microscopic (AO) on 09-15-2024 UA Am Biurate Crystals 1+ /hpf Abnormal [facility] Comment on above: Performed By: #### U AMICAO, UA #### [place] [address] UA RBC None Seen Normal None Seen [facility] Comment on above: Performed By: #### U AMICAO, UA #### [place] [address] UA Squam Epithelial 0-5 Abnormal None Seen [facility] Comment on above: Performed By: #### U AMICAO, UA #### [place] [address] UA WBC 0-5 Abnormal None Seen [facility] Comment on above: Performed By: #### U AMICAO, UA #### [place] [address] BMPon 09-15-2024 BUN/Creatinine Ratio 18 ratio Normal 7-27 [facility] Comment on above: Performed By: #### U AMICAO, UA #### [address] [address] Calcium [Mass/Vol] 9.4 mg/dL Normal 8.4-10.2 [facility] Comment on above: Performed By: #### U AMICAO, UA #### [address] [address] Chloride [Moles/Vol] 106 mmol/L Normal 98-107 [facility] Comment on above: Performed By: #### U AMICAO, UA #### [address] [address] CO2 [Moles/Vol] 28 mmol/L Normal 23-31 [facility] Comment on above: Performed By: #### U AMICAO UA #### [address] [address] Creatinine [Mass/Vol] 1.25 mg/dL Normal 0.70-1.30 [facility] Comment on above: Result Comment: Test ing performed on Siemens Dimension EXL analyzer using a modified kinetic Omid technique. Performed By: #### U AMICAO UA #### [address] [address] Electrolyte Balance 3.0 mEq/L Low 4.0-15.0 [facility] Comment on above: Performed By: #### U AMICAO, UA #### [address] [address] Glucose [Mass/Vol] 86 mg/dL Normal 80-115 [facility] Comment on above: Performed By: #### U AMICAO, UA #### [address] [address] Potassium [Moles/Vol] 4.9 mmol/L Normal 3.5-5.1 [facility] Comment on above: Performed By: #### U AMICAO, UA #### [address] [address] Sodium [Moles/Vol] 137 mmol/L Normal 136-145 [facility] Comment on above: Performed By: #### U JOE UA #### [address] [address] Urea nitrogen [Mass/Vol] 22 mg/dL High 7-18 [facility] Comment on above: Performed By: #### U JOE UA #### [place] [address] [place], [place] [address] CBCon 09-15-2024 Erythrocyte distribution width (RBC) [Ratio] 13.7 % Normal 11.5-15.5 [facility] Comment on above: Performed By: #### C YAAKOV, MAYDA, JUDITHS, W, BMP, GFR, ADIFF #### [address] [address] Hematocrit (Bld) [Volume fraction] 45.0 % Normal 40.0-52.0 [facility] Comment on above: Performed By: #### C BC, MAYDA, JUDITHS, W, BMP, GFR, ADIFF #### [address] [address] Hgb 15.3 G/dL Normal 13.0-17.5 [facility] Comment on above: Performed By: #### C BC, MAYDA, JUDITHS, MDW, BMP, GFR, ADIFF #### [address] [address] MCH (RBC) [Entitic mass] 30.9 pg Normal 27.0-33.0 [facility] Comment on above: Performed By: #### C BC, MAYDA, JUDITHS, MDW, BMP, GFR, ADIFF #### [address] [address] MCHC 33.9 G/dL Normal 32.0-36.0 [facility] Comment on above: Performed By: #### C BC, MAYDA, JUDITHS, MDW, BMP, GFR, ADIFF #### [address] [address] MCV (RBC) [Entitic vol] 91.1 fL Normal 81.0-100.0 [facility] Comment on above: Performed By: #### C BC, ANEU, TROPHS, MDW, BMP, GFR, ADIFF #### [address] [address] Platelet 236 10 3/mcL Normal 150-450 [facility] Comment on above: Performed By: #### C BC, ANEU, TROPHS, MDW, BMP, GFR, ADIFF #### [address] [address] Platelet mean volume (Bld) [Entitic vol] 9.1 fL Normal 6.4-10.5 [facility] Comment on above: Performed By: #### C BC, ANEU, TROPHS, MDW, BMP, GFR, ADIFF #### [address] [address] RBC 4.94 10 6/mcL Normal 4.50-6.00 [facility] Comment on above: Performed By: #### C BC, ANEU, TROPHS, MDW, BMP, GFR, ADIFF #### [address] [address] WBC 11.5 10 3/mcL High 4.5-10.8 [facility] Comment on above: Performed By: #### C BC, ANEU, TROPHS, MDW, BMP, GFR, ADIFF #### [address] [address] [address] HEAD OR BRAIN W/O CONTRAS Ton 09-15-2024 CT HEAD OR BRAIN W/O CONTRAST ORIGINAL HISTORY: Fall COMPARISON: 26 July 2023 TECHNIQUE: Routine noncontrast head CT, with sagittal and coronal reconstructions. This exam was performed according to our departmental dose optimization program, and includes the following measures where applicable: automated exposure control, adjustment of the mAs and/or kVp according to patient size and/or exam, and an iterative reconstruction algorithm. FINDINGS: There is a large left-sided infarct, and there is ex vacuo dilatation of the left lateral ventricle. The ventricles and sulci are otherwise mildly enlarged. There are no abnormal intra or extra-axial fluid collections. There is mild irregular decreased attenuation in the cerebral white matter. The calvaria and the bones of the base of the skull are intact. IMPRESSION: Volume loss, small vessel ischemic disease and a remote large left-sided infarct, all similar to the comparison. Interpreted by: Zenaida Shi MD Preliminary Report By: Zenaida Shi MD Electronically signed By Zenaida Shi MD Dictated Date: 09/15/2024 4:30:47 PM Prelim Date: 09/15/2024 4:36:30 PM Sign Date: 09/15/2024 4:36:30 PM Ordering Provider: NASIM ANDERS [facility] CVFLURVon 09-15-2024 FLU A PCR Negative Normal Negative [facility] Comment on above: Performed By: #### C VFLURV #### [place] [address] FLU B PCR Negative Normal Negative [facility] Comment on above: Performed By: #### C VFLURV #### [place] [address] RSV PCR Negative Normal Negative [facility] Comment on above: Performed By: #### C VFLURV #### [place] [address] SARS-CoV-2 (COVID-19) RNA PAMELA+probe Ql (Unsp spec) Negative Normal Negative [facility] Comment on above: Result Comment: Resu lts from the Xpert Xpress CoV-2/Flu/RSV plus test should be correlated with the clinical history, epidemiological data, and other data available to the clinical evaluating the patient. Performance of the Xpert Xpress CoV-2/Flu/RSV plus test has only been established in nasopharyngeal swab specimen. Erroneous test results might occur from improper specimen collection, failure to follow the recommended sample collection, handling and storage procedures, technical error, or sample mix-up. False negative results may occur if a virus is present at a level below the analytical limit of detection. Viral nucleic acid may persist in vivo, independent of virus viability. Detection of analyte target(s) does not imply that the corresponding virus(es) are infectious or are the causative agents for clinical symptoms. Recent patient exposure to FluMist or other live attenuated influenza vaccines may cause inaccurate positive results. Performed By: #### C VFLURV #### [facility] [address] [place], [place] [address] LABORATORYOrdered By: Veto Antony on 09-15-2024 FLUAV RNA PAMELA+probe Ql (Resp) Negative (09/15/24 3:50 PM) Normal Negative AO Auto Urine SS FLUBV RNA PAMELA+probe Ql (Resp) Negative (09/15/24 3:50 PM) Normal Negative AO Auto Urine SS RSV RNA PAMELA+probe Ql (Resp) Negative (09/15/24 3:50 PM) Normal Negative AO Auto Urine SS SARS-CoV-2 (COVID-19) RNA PAMELA+probe Ql (Resp) Negative 10 (09/15/24 3:50 PM) Normal Negative AO Auto Urine SS Comment on above: Interpretive Data: R esults from the Xpert Xpress CoV-2/Flu/RSV plus test should be correlated with the clinical history, epidemiological data, and other data available to the clinical evaluating the patient. Performance of the Xpert Xpress CoV-2/Flu/RSV plus test has only been established in nasopharyngeal swab specimen. Erroneous test results might occur from improper specimen collection, failure to follow the recommended sample collection, handling and storage procedures, technical error, or sample mix-up. False negative results may occur if a virus is present at a level below the analytical limit of detection. Viral nucleic acid may persist in vivo, independent of virus viability. Detection of analyte target(s) does not imply that the corresponding virus(es) are infectious or are the causative agents for clinical symptoms. Recent patient exposure to FluMist or other live attenuated influenza vaccines may cause inaccurate positive results. LABORATORYOrdered By: SYSTEM SYSTEM on 09-15-2024 Basophils (Bld) [#/Vol] 0.1 103/mcL Normal 0.0 - 0.2 10^3/mcL AO Workflow SS Basophils/100 WBC (Bld) 1.0 % Normal 0.0 - 2.5 % AO Workflow SS Eosinophil, Absolute 0.5 103/mcL Normal 0.0 - 0 .7 10^3/mcL AO Workflow SS Eosinophils/100 WBC (Bld) 4.4 % Normal 0.0 - 7.0 % AO Workflow SS Erythrocyte distribution width (RBC) [Ratio] 13.7 % Normal 11.5 - 15.5 % AO Workflow SS Hematocrit (Bld) [Volume fraction] 45.0 % Normal 40.0 - 52.0 % AO Workflow SS Hemoglobin (Bld) [Mass/Vol] 15.3 G/dL Normal 13.0 - 17.5 G/dL AO Workflow SS Lymphocytes (Bld) [#/Vol] 1.8 103/mcL Normal 0.9 - 4.3 10^3/mcL AO Workflow SS Lymphocytes/100 WBC (Bld) 15.4 % Low 20.0 - 40.0 % AO Workflow SS MCH (RBC) [Entitic mass] 30.9 pg Normal 27. 0 - 33.0 pg AO Workflow SS MCHC 33.9 G/dL Normal 32.0 - 36.0 G/dL AO Workflow SS MCV (RBC) [Entitic vol] 91.1 fL Normal 81.0 - 100.0 fL AO Workflow SS Monocyte distribution width Auto (Bld) [Entitic vol] 19.00 1 Normal 0.00 - 20.00 AO Workflow SS Comment on above: Result Comment: For ED adult patients suspected of sepsis, MDW<=20.0 does not rule out sepsis or risk of sepsis Monocytes (Bld) [#/Vol] 1.1 103/mcL Normal 0.1 - 1.4 10^3/mcL AO Workflow SS Monocytes/100 WBC (Bld) 9.2 % Normal 2.0 - 13.0 % AO Workflow SS Neutrophils (Bld) [#/Vol] 8.1 103/mcL Normal 2.3 - 8.1 10^3/mcL AO Workflow SS Neutrophils/100 WBC (Bld) 70.0 % Normal 50.0 - 75.0 % AO Workflow SS Platelet mean volume (Bld) [Entitic vol] 9.1 fL Normal 6.4 - 10.5 fL AO Workflow SS Platelets (Bld) [#/Vol] 236 103/mcL Normal 150 - 450 10^3/mcL AO Workflow SS RBC (Bld) [#/Vol] 4.94 106/mcL Normal 4.50 - 6.0 0 10^6/mcL AO Workflow SS Troponin I.cardiac DL <= 0.01 ng/mL [Mass/Vol] 6 ng/L Normal 0 - 76 ng/L AO ADM SS Comment on above: Interpretive Data: H igh Sensitive Troponin I Reference Ranges: Female: 0-51 ng/L Male: 0-76 ng/L Testing performed on [place] using a homogeneous sandwich chemiluminescent immunoassay based on [employer] technology. WBC (Bld) [#/Vol] 11.5 103/mcL High 4.5 - 10.8 10^3/mcL AO Workflow SS LABORATORYOrdered By: Sharon Jimenez on 09-15-2024 Ammonium urate crystals LM Ql (Urine sed) 1+ /HPF Invalid Interpretation Code AO Auto Urine SS Appearance (U) Clear (09/15/24 3:00 PM) Normal Clear AO Auto Urine SS Bilirubin Ql (U) Negative (09/15/24 3:00 PM) Normal Negative AO Auto Urine SS Color (U) Yellow (09/15/24 3:00 PM) Normal AO Auto Urine SS Glucose Test strip (U) [Mass/Vol] Negative Normal Negative AO Auto Urine SS Hemoglobin Auto test strip (U) [Mass/Vol] Negative (09/15/24 3:00 PM) Normal Negative AO Auto Urine SS UA Leuk Est Negative (09/15/24 3:00 PM) Normal Negative AO Auto Urine SS UA Nitrite Negative (09/15/24 3:00 PM) Normal Negative AO Auto Urine SS UA pH 5.5 (09/15/24 3:00 PM) Normal 5.0 - 8.0 AO Auto Urine SS UA Protein 30 mg/dL Normal Negative AO Auto Urine SS UA RBC None Seen /HPF Normal None Seen AO Auto Urine SS UA Spec Grav >=1.030 *ABN* (09/15/24 3:00 PM) Invalid Interpretation Code 1.015-1.025 AO Auto Urine SS UA Specimen Type Clean Catch (09/15/24 3:00 PM) Normal AO Auto Urine SS UA Squam Epithelial 0-5 /HPF Invalid Interpretation Code None Seen AO Auto Urine SS UA Urobilinogen 0.2 E.U./dL Normal 0.2-1.0 AO Auto Urine SS WBC LM.HPF (Urine sed) [#/Area] 0-5 /HPF Invalid Interpretation Code None Seen AO Auto Urine SS TROPHSon 09-15-2024 High Sensitivity Troponin I 6 ng/L Normal 0-76 [facility] Comment on above: Result Comment: High Sensitive Troponin I Reference Ranges: Female: 0-51 ng/L Male: 0-76 ng/L Testing performed on [place] using a homogeneous sandwich chemiluminescent immunoassay based on [employer] technology. Performed By: #### U JOE UA #### [address] [address] UAon 09-15-2024 Color (U) Yellow Normal [facility] Comment on above: Performed By: #### U AMICAO, UA #### [address] [address] Glucose (U) [Mass/Vol] Negative Normal Negative [facility] Comment on above: Performed By: #### U AMICAO, UA #### [place] [address] UA Appear Clear Normal Clear [facility] Comment on above: Performed By: #### U AMICAO, UA #### [place] [address] UA Blood Negative Normal Negative [facility] Comment on above: Performed By: #### U AMICAO, UA #### [place] [address] UA Leuk Est Negative Normal Negative [facility] Comment on above: Performed By: #### U AMICAO, UA #### [place] [address] UA Nitrite Negative Normal Negative [facility] Comment on above: Performed By: #### U AMICAO, UA #### [place] [address] UA pH 5.5 Normal 5.0 - 8.0 [facility] Comment on above: Performed By: #### U AMICAO, UA #### [address] [address] UA Protein 30 mg/dL Normal Negative [facility] Comment on above: Performed By: #### U AMICAO, UA #### [place] [address] UA Spec Grav >=1.030 Abnormal 1.015-1.025 [facility] Comment on above: Performed By: #### U AMICAO, UA #### [place] [address] UA Specimen Type Clean Catch Normal [facility] Comment on above: Performed By: #### U AMICAO, UA #### [facility] [address] [place], [place] [address] UA Urobilinogen 0.2 E.U./dL Normal 0.2-1.0 [facility] Comment on above: Performed By: #### U AMICAO, UA #### [place] [address] [place], [place] [address] Urobilinogen (U) [Mass/Vol] Negative Normal Negative [facility] Comment on above: Performed By: #### U AMICAO, UA #### [place] [address] [place], [place] [address] UAOrdered By: Trish Jimenez on 09-15-2024 Ketones Ql (U) Negative Normal Negative AO Auto Urine SS Comment on above: Performed By: #### U AMICAO, UA #### [address] [address] XR CHEST 1 VIEWon 09-15-2024 XR CHEST 1 VIEW ORIGINAL EXAMINATION: ONE XRAY VIEW OF THE CHEST09/15/2024 3:04 pm COMPARISON: 07/26/2023 HISTORY: ORDERING SYSTEM PROVIDED HISTORY: Reason for Exam: Weakness FINDINGS: Cardiomediastinal contours are stable in appearance. Median sternotomy wires are noted and intact. The aorta appears mildly torturous. Aortic atherosclerosis is noted. No focal consolidation or pulmonary edema. There is some interstitial prominence in the mid and lower lungs that seem to be chronic. No pneumothorax or pleural effusion. No acute osseous abnormalities. Stable appearing degenerative changes of the bilateral shoulders. IMPRESSION: No acute radiographic findings. I have personally reviewed the images of this examination and agree with the resident's findings and interpretation. Interpreted by: Zo Stevens MD Preliminary Report By: Earl Soto Electronically signed By Zo Stevens MD Dictated Date: 09/15/2024 3:11:41 PM Prelim Date: 09/15/2024 3:27:25 PM Sign Date: 09/15/2024 3:27:25 PM [facility]ing [facility] Telephone (FAMSlimWS) AFSHIN ZEE ([id number]) 1955 M Date Time Provider Department 09[facility]08[facility] During your visit today, we recorded the following information about you: Therese Paz LPN 09/08/2024 3:54 PM Signed called to report Depakote ws not cancelled at the pharmacy and the pharmacy still showed pt was on this. I called the pharmacy and got it cancelled. Left a detailed message for on 09-08-24 @ 3:52 pm that medication above was cancelled at the pharmacy. Therese Paz LPN Allergies As of Date: 09/08/2024 Noted Allergy Reaction LISINOPRIL 09/27/2016 7 - Swelling 18 - Angioedema Comments: Lip swelling after starting lisinopril. DOXYCYCLINE 12/11/2022 8 - GI Upset 14 - Other: See Comments Comments: GI upset (stomach ache/cramping/diarrhea ) and splotchy face SULFA (SULFONAMIDE ANTIBIOTICS) 03/11/2019 4 - Hives ZPAK (AZITHROMYCIN) 10/03/2018 4 - Hives Date Reviewed: 09/04/2024 Reviewed by: Joycelyn Woodruff MD - Fully Assessed Reason for Visit: Medication Problem [65] Prescriptions as of 09/08/2024 - losartan (COZAAR) 25 mg tablet Take 1 tablet by mouth once daily. - pregabalin (LYRICA) 25 mg capsule Take 25 mg at bedtime for 1 week followed by 25 mg twice daily for 1 week followed by 25 mg in the morning and 50 mg at bedtime for 1 week followed by 50 mg twice daily for 1 week followed by 50 mg in the morning and 75 mg at bedtime for 1 week followed by 75 mg twice daily. - baclofen 10 mg tablet Take 1 tablet by mouth three times a day. - amLODIPine (NORVASC) 10 mg tablet Take 0.5 tablets by mouth two times a day. Take 1/2 tablet twice daily - traZODone (DESYREL) 100 mg tablet Take 1 tablet by mouth daily at bedtime. - albuterol HFA (PROVENTIL HFA, VENTOLIN HFA) 90 mcg/actuation inhaler INHALE 2 PUFFS INTO THE LUNGS EVERY 4 HOURS NEEDED - multivitamin tablet Take 1 tablet by mouth once daily. - famotidine (PEPCID) 20 mg tablet Take 20 mg by mouth once daily. - hydroCHLOROthiazide 12.5 mg tablet Take 1 tablet by mouth every morning. - clotrimazole-betametha sone (LOTRISONE) cream Apply to affected area two times a day. - OXYGEN, HOME THERAPY, 4 L/min by Nasal Cannula route as directed. - busPIRone (BUSPAR) 15 mg tablet take 1 tablet by mouth three times a day - STIOLTO RESPIMAT 2.5-2.5 mcg/actuation inhaler inhale 2 puffs by mouth as directed once daily - LORazepam (ATIVAN) 1 mg tablet Take 1-2 tablets by mouth three times a day as needed for anxiety for up to 45 days. Take 1-2 pills three times a day - potassium chloride (K-TAB) 10 mEq tablet Take 2 tablets by mouth three times a day. - albuterol (PROVENTIL) 2.5 mg /3 mL (0.083 %) nebulizer solution INHALE 1 VIAL VIA NEBULIZER EVERY 4 HOURS NEEDED FOR WHEEZING/SHORTNESS OF BREATH. USE OVER 5-15 MINUTES - clopidogrel (PLAVIX) 75 mg tablet Take 75 mg by mouth once daily. - ezetimibe (ZETIA) 10 mg tablet Take 1 tablet by mouth once daily. - ferrous sulfate (FEROSUL) 325 mg (65 mg iron) tablet Take 1 tablet by mouth two times a day. - amiodarone (PACERONE) 100 mg tablet TAKE 1 TABLET BY MOUTH ONCE DAILY *DO NOT TAKE IF HEART RATE IS LESS THAN 40* - atorvastatin (LIPITOR) 40 mg tablet take 1 tablet by mouth once daily - escitalopram oxalate (LEXAPRO) 20 mg tablet take 1 tablet by mouth once daily - apixaban (ELIQUIS) 5 mg tab(s) take 1 tablet by mouth twice daily - metoprolol tartrate, short acting, (LOPRESSOR) 25 mg tablet TAKE 1/2 TABLET BY MOUTH TWICE DAILY. HOLD IF HEART RATE IS LESS THAN 60 - acetaminophen (TYLENOL EXTRA STRENGTH) 500 mg tablet Take 2 tablets by mouth three times a day as needed for pain. - fluticasone (FLONASE) 50 mcg/actuation nasal spray Use 1 [place] in each nostril twice daily. Rinse mouth after use. - Blood Pressure Monitor kit 1 application twice daily. Measure patient for correct size. Patient needs cuff for left arm readings. - COMPOUNDED PRESCRIPTION Articulating AFO foot brace for right leg. Send to [employer]. Dx: I63.9 - COMPOUNDED PRESCRIPTION EMBER WALKER DX I63.9 weight 162 # Problem List As Of Date 09/08/2024 Noted Resolved Hyperlipidemia [E78.5] 06/06/2010 Elevated blood pressure [GNE5485] 06/06/2010 03/20/2019 Erectile dysfunction [N52.9] 06/06/2010 Cervicalgia [M54.2] 04/16/2016 Chronic right shoulder pain [M25.511, G89.29] 04/16/2016 Occlusion of left carotid artery [I65.22] 07/02/2016 Stroke (cerebrum) (HCC) [I63.9] Aneurysm (HCC) [I72.9] Essential hypertension [I10] 06/25/2017 Anxiety [F41.9] 09/04/2017 Chronic insomnia [F51.04] 04/04/2018 Right hemiplegia (HCC) [G81.91] 04/30/2018 Bradycardia [R00.1] 03/20/2019 Dysphasia [R47.02] Coronary artery disease involving [place] matos*04/02/2021 Paroxysmal atrial fibrillation (HCC) [I48.0] 04/03/2021 Aphasia as late effect of cerebrovas (more content not included)... Normal [facility] CNOVon 09-03-2024 CNOV Office Visit (NE50MN ) AFSHIN ZEE ([id number]) 1955 M Date Time Provider Department 09/03/24 2:00 PM JOYCELYN WOODRUFF NE50MN During your visit today, we recorded the following information about you: Pulse Blood pressure Weight Height 55/minute 128/64 84.4 kg 1.778 m Joycelyn Woodruff MD 09/09/2024 4:10 PM Signed [facility] Patient Name: Afshin ELLIS Date of : 1955 Referring Provider: Jessie Harmon [address] [facility] [address] INITIAL EPILEPSY CLINIC NOTE 09/03/2024 2:00 PM CHIEF COMPLAINT: New Patient HISTORY OF PRESENT ILLNESS Mr. Zee is a 69 year old male seen in [facility] for initial consultation. 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 He requires assistance with activities of daily living. Patient has right sided weakness (UE > LE) and expressive > receptive aphasia since the stroke. Patient established care with a neurologist in May 2024. At the time, per chart review patient's had reported episodes of staring where he would be responsive when called. The neurologist had ordered an EEG which revealed left temporal sharp waves max at F7-T7. He was placed on levetiracetam 500 mg twice daily. Subsequently, he was admitted to the hospital and diagnosed with pneumonia. There was an episode prior to hospital admission reported as staring off with no response to stimuli when prompted by . While in the hospital, he reported had a number of confusional episodes. He underwent repeat imaging and EEG in the hospital which was reportedly unrevealing and not epileptiform. He was then discharged from hospital. There were concerns about mood side effects from Levetiracetam (LEV) and he was placed on valproate (VPA) which led to fatigability and they self discontinued the medication. He is currently on no ASMs. He was recommended to try clobazam (CLB) but never tried it. They deny any more staring episodes since hospital discharge, deny any abnormal involuntary activity, episodes of waking up with blood on pillow or urinary incontinence. Total # of Current Anti-seizure Medications: 0 Side Effects to Current Anti-seizure Medications: Seizure Frequency at First Visit: 1 per 6 months Longest Seizure-free Interval: Number of seizure types: 1 Hx of generalized tonic-clonic seizures: No Tongue bite: No Urine or Bowel Incontinence: No Triggers: unknown Postictal Deficits: No Memory complaints: unknown Status Epilepticus or clusters: No Postictal Agitation: No Significant Injuries from Seizures: none Seizure-related driving accidents: No Driving: No Lives Alone: No ED Visits in Last 3 Months: Yes Hospitalizations in Last 3 Months: Yes Current Vocation: not working CURRENT OUTPATIENT ANTISEIZURE MEDICATIONS (as of the start of the encounter) divalproex DR (DEPAKOTE) 500 mg EC tablet take 1 tablet by mouth twice a day levETIRAcetam (KEPPRA) 250 mg tablet levETIRAcetam (KEPPRA) 500 mg tablet Take 1 tablet by mouth two times a day. Prior Anti-seizure Therapies: Trial Adequacy: Max Daily Dose Achieved: Side Effects: Effectiveness: Comments: Levetiracetam 1000 Psychiatric Valproate Systemic Comorbidities: Major: Cerebrovascular accident Cerebrovascular accident: Ischemic Minor: Obstructive Sleep Apnea, Hemiparesis Episode Description: SEIZURE TYPE 1: Staring Onset: May 2024? Aura: not sure Description: Staring off with no response to stimuli Unknown duration or frequency. Loss of awareness: Duration: Frequency: Last occurred: yes Patient Entered Data: EPILEPSY SCORE 05/29/2024 3:42 PM 05/29/2024 3:40 PM 05/29/2024 3:37 PM PHQ-9 SCORE - - 14 [Moderate Depression] JESS 2 SCORE - - - JESS 7 SCORE - - - QOLIE-10 SCORE (0=worst; 100=best QoL - higher scores represent better function) - - - LSSS SCORE (0- no seizures 100- most severe possible seizures) - - - C-SSRS SCREEN - - - On average, how many hours of sleep do you get in a 24-hour period? - - - PROMIS Sleep Disturbance T-SCORE 43 [within normal limits] - - Have you been diagnosed with Sleep Apnea? - Yes - Seizure risk factors: Brain Tumor Unanswered DIRECTOR OF ENVIRONMENTAL SERVICES Infections Unanswered Developmental Delay Unanswered Family history of seizures Unanswered Febrile Seizure Unanswered Complications Unanswer (more content not included)... Normal [facility] D/C Summary- SPon 08-21-2024 D/C Summary- SP [facility] [address] [place] [address] / REHABILITATION SERVICES DISCHARGE SUMMARY MR#: [id number] Acct: [id number] Name: AFSHIN ZEE Rep #: [id number] : 1955 69 From: Isa Kramer Referring Dr.: Dr. Davin Kim MD [facility]: [facility] Discharge Summary Discharged: Discharge: Pt was seen for initial speech/language/cognit jhonatan evaluation at [facility] on 11/18/23 secondary to dx of cva and dysphagia. Pt attended 14 sess ions from initial evaluation targeting total communication, answering y/n questions, following 1-2 step directions, and diet tolerance. Pt being discharged from speech therapy caseload on this date, 08/21/24, secondary to additional therapy sessions not being scheduled after last session. Thank you for allowing me to participate the care of your Pt. Will reevaluate at Pt???s request following script from physician. 08/21/24 0917 CC: Dr. Jaci Arroyo MD; Dr. Davin Kim MD [facility] Signed Normal [facility] CNPNon 08-14-2024 CNPN Telephone (FAMPWS) AFSHIN ZEE ([id number]) 1955 M Date Time Provider Department 08/14/24 JACI ARROYO During your visit today, we recorded the following information about you: Raiza John RN 08/14/2024 12:21 PM Signed Spouse (Eli) calls to request results of CT scan of head and neck from 06/01/[address] Joycelyn Woodruff at [facility]. CT results were ordered by Dr. Nirali Castro and not completed at [facility]. Spouse believes testing was completed at [facility]. Recommended patient contact [facility] if that is where he had testing completed. Eli will contact Dr. Nirali Castro first and then [facility] if needed. Phone number given to Dr. Castro's office. Raiza John RN Allergies As of Date: 08/14/2024 Noted Allergy Reaction LISINOPRIL 09/27/2016 7 - Swelling 18 - Angioedema Comments: Lip swelling after starting lisinopril. DOXYCYCLINE 12/11/2022 8 - GI Upset 14 - Other: See Comments Comments: GI upset (stomach ache/cramping/diarrhea ) and splotchy face SULFA (SULFONAMIDE ANTIBIOTICS) 03/11/2019 4 - Hives ZPAK (AZITHROMYCIN) 10/03/2018 4 - Hives Date Reviewed: 07/22/2024 Reviewed by: Michelle Webb PA-C - Fully Assessed Reason for Visit: Release Of Medical Records [2017] Prescriptions as of 08/14/2024 - baclofen 10 mg tablet Take 1 tablet by mouth three times a day. - divalproex DR (DEPAKOTE) 500 mg EC tablet take 1 tablet by mouth twice a day - amLODIPine (NORVASC) 10 mg tablet Take 0.5 tablets by mouth two times a day. Take 1/2 tablet twice daily - traZODone (DESYREL) 100 mg tablet Take 1 tablet by mouth daily at bedtime. - albuterol HFA (PROVENTIL HFA, VENTOLIN HFA) 90 mcg/actuation inhaler INHALE 2 PUFFS INTO THE LUNGS EVERY 4 HOURS NEEDED - multivitamin tablet Take 1 tablet by mouth once daily. - famotidine (PEPCID) 20 mg tablet Take 20 mg by mouth once daily. - hydroCHLOROthiazide 12.5 mg tablet Take 1 tablet by mouth every morning. - levETIRAcetam (KEPPRA) 250 mg tablet Take 1 tablet by mouth two times a day. - clotrimazole-betametha sone (LOTRISONE) cream Apply to affected area two times a day. - levETIRAcetam (KEPPRA) 500 mg tablet Take 1 tablet by mouth two times a day. - OXYGEN, HOME THERAPY, 4 L/min by Nasal Cannula route as directed. - busPIRone (BUSPAR) 15 mg tablet take 1 tablet by mouth three times a day - STIOLTO RESPIMAT 2.5-2.5 mcg/actuation inhaler inhale 2 puffs by mouth as directed once daily - LORazepam (ATIVAN) 1 mg tablet Take 1-2 tablets by mouth three times a day as needed for anxiety for up to 45 days. Take 1-2 pills three times a day - potassium chloride (K-TAB) 10 mEq tablet Take 2 tablets by mouth three times a day. - albuterol (PROVENTIL) 2.5 mg /3 mL (0.083 %) nebulizer solution INHALE 1 VIAL VIA NEBULIZER EVERY 4 HOURS NEEDED FOR WHEEZING/SHORTNESS OF BREATH. USE OVER 5-15 MINUTES - clopidogrel (PLAVIX) 75 mg tablet Take 75 mg by mouth once daily. - ezetimibe (ZETIA) 10 mg tablet Take 1 tablet by mouth once daily. - losartan (COZAAR) 25 mg tablet Take 1 tablet by mouth once daily. - ferrous sulfate (FEROSUL) 325 mg (65 mg iron) tablet Take 1 tablet by mouth two times a day. - amiodarone (PACERONE) 100 mg tablet TAKE 1 TABLET BY MOUTH ONCE DAILY *DO NOT TAKE IF HEART RATE IS LESS THAN 40* - atorvastatin (LIPITOR) 40 mg tablet take 1 tablet by mouth once daily - escitalopram oxalate (LEXAPRO) 20 mg tablet take 1 tablet by mouth once daily - apixaban (ELIQUIS) 5 mg tab(s) take 1 tablet by mouth twice daily - metoprolol tartrate, short acting, (LOPRESSOR) 25 mg tablet TAKE 1/2 TABLET BY MOUTH TWICE DAILY. HOLD IF HEART RATE IS LESS THAN 60 - acetaminophen (TYLENOL EXTRA STRENGTH) 500 mg tablet Take 2 tablets by mouth three times a day as needed for pain. - fluticasone (FLONASE) 50 mcg/actuation nasal spray Use 1 [place] in each nostril twice daily. Rinse mouth after use. - Blood Pressure Monitor kit 1 application twice daily. Measure patient for correct size. Patient needs cuff for left arm readings. - COMPOUNDED PRESCRIPTION Articulating AFO foot brace for right leg. Send to [employer]. Dx: I63.9 - COMPOUNDED PRESCRIPTION EMBER WALKER DX I63.9 weight 162 # Problem List As Of Date 08/14/2024 Noted Resolved Hyperlipidemia [E78.5] 06/06/2010 Elevated blood pressure [XHL5731] 06/06/2010 03/20/2019 Erectile dysfunction [N52.9] 06/06/2010 Cervicalgia [M54.2] 04/16/2016 Chronic right shoulder pain [M25.511, G89.29] 04/16/2016 Occlusion of left carotid artery [I65.22] 07/02/2016 Stroke (cerebrum) (HCC) [I63.9] Aneurysm (HCC) [I72.9] Essential hypertension [I10] 06/25/2017 Anxiety [F41.9] 09/04/2017 Chronic insomnia [F51.04] 04/04/2018 Right hemiplegia (HCC) [G81.91] 04/30/2018 Bradycardia [R00.1] 03/20/2019 Dysphasia [R47.02] Coronary artery disease involving [place] cor (more content not included)... [facility] ([id number]) 1955 M Date Time Provider Department 07/27/24 [facility] During your visit today, we recorded the following information about you: Dimple Agustin LPN 07/27/2024 10:25 AM Signed calls to report pt needs incontinence supplies. reports pt had an order from awhile ago but has started needing them every night. Pt's does not know who the DME company is. Per LALITHA 03/11/23 - it shows a form was received in the office for incontinence supplies from [facility]. There is a fax number: [phone]. There isn't a phone number. reports pt uses large pull-up at bedtime. Heavier flow. is asking if office can send order to [facility]. Could not find scanned form in pt's chart. is requesting a call letting her know if office was able to get order to [facility]. reports pt does not have very many pull-ups left. JAVI Sneed Kathryn, MA 07/27/2024 10:35 AM Signed Send order for incontinence supplies to [facility] fax number [phone] Rachel Buckley MA 07/28/2024 9:06 AM Signed Office received fax from [employer] regarding incontinence supplies. Type of form: Medical Necessity Form received via fax When form is completed, Fax form to [employer], Form has been forwarded to Physician Desk: JIMI Ramos M Robin, RN 08/26/2024 4:22 PM Signed reports patient is almost out of incontinent supplies, has a week of supplies left. Asking provider to please send information to [employer]. Jaci Arroyo MD 09/01/2024 2:41 PM Signed I do not see any forms on my desk, I assume these have been done? MD Anthony Mathew Kathryn, MA 09/01/2024 3:20 PM Addendum No forms received other than the forms that were received in Jul and faxed to [employer]. May need to call for a new order form. [employer] ph: [phone]. pt was notify of below: Called [employer], spoke with rep who stated that the order for protective underwear was shipped out yesterday 08/31/24 and the other urinary incontinence supplies were shipped out on 08/27/24. Rep checked tracking and looks like she should be getting a delivery today. If pt is asking for something other than the typical urinary incontinence supplies he has been getting or the underwear then [employer] would need more information and order from the provider. Spoke with , she has called [employer] and notified the company that he only is getting pull ups through them. He is not currently using any other incontinence supplies at this time. Nothing more that office needs to do. Pt is to call [employer] when patient is in need of the pull ups. Monica Cruz MA Allergies As of Date: 07/27/2024 Noted Allergy Reaction LISINOPRIL 09/27/2016 7 - Swelling 18 - Angioedema Comments: Lip swelling after starting lisinopril. DOXYCYCLINE 12/11/2022 8 - GI Upset 14 - Other: See Comments Comments: GI upset (stomach ache/cramping/diarrhea ) and splotchy face SULFA (SULFONAMIDE ANTIBIOTICS) 03/11/2019 4 - Hives ZPAK (AZITHROMYCIN) 10/03/2018 4 - Hives Date Reviewed: 07/22/2024 Reviewed by: Michelle Webb PA-C - Fully Assessed Reason for Visit: incontinence supplies [Other] Prescriptions as of 09/01/2024 - baclofen 10 mg tablet Take 1 tablet by mouth three times a day. - divalproex DR (DEPAKOTE) 500 mg EC tablet take 1 tablet by mouth twice a day - amLODIPine (NORVASC) 10 mg tablet Take 0.5 tablets by mouth two times a day. Take 1/2 tablet twice daily - traZODone (DESYREL) 100 mg tablet Take 1 tablet by mouth daily at bedtime. - albuterol HFA (PROVENTIL HFA, VENTOLIN HFA) 90 mcg/actuation inhaler INHALE 2 PUFFS INTO THE LUNGS EVERY 4 HOURS NEEDED - multivitamin tablet Take 1 tablet by mouth once daily. - famotidine (PEPCID) 20 mg tablet Take 20 mg by mouth once daily. - hydroCHLOROthiazide 12.5 mg tablet Take 1 tablet by mouth every morning. - levETIRAcetam (KEPPRA) 250 mg tablet Take 1 tablet by mouth two times a day. - clotrimazole-betametha sone (LOTRISONE) cream Apply to affected area two times a day. - levETIRAcetam (KEPPRA) 500 mg tablet Take 1 tablet by mouth two times a day. - OXYGEN, HOME THERAPY, 4 L/min by Nasal Cannula route as directed. - busPIRone (BUSPAR) 15 mg tablet take 1 tablet by mouth three times a day - STIOLTO RESPIMAT 2.5-2.5 mcg/actuation inhaler inhale 2 puffs by mouth as directed once daily - LORazepam (ATIVAN) 1 mg tablet Take 1-2 tablets by mouth three times a day as needed for anxiety for up to 45 days. Take 1-2 pills three times a day - potassium chloride (K-TAB) 10 mEq tablet Take 2 tablets by mouth three times a day. - albuterol (PROVENTIL) 2.5 mg /3 mL (0.083 %) nebulizer solution INHALE 1 VIAL VIA NEBULIZER EVERY 4 HOURS NEEDED FO (more content not included)... Normal [facility] CNCONon 07-23-2024 CNCON Consults (NE50MN) AFSHIN ZEE ([id number]) 1955 M Date Time Provider Department 07/23/24 JUDE GROVES NE50MN During your visit today, we recorded the following information about you: Nayeli Boyle APRN.ESTELLA 07/23/2024 3:04 PM Signed [facility] Review of Records Patient: Afshin Zee Address: [address] [place], [place] [id number] Impression: Review of records for Afshin Zee, a 68 year old male, being referred by Michelle Webb PA-C [[facility]] to Any Epileptologist for further evaluation and treatment. Patient has previously diagnosed transient altered awareness. 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 MRI from 2023 reported left hemispheric sequelae of stroke. Patient has trialed 2 AEDs. VEEG is indicated and being requested for event characterization and diagnostic evaluation to determine best treatment options. Of note, the patient was resistant to scheduling this. May start with a visit with an epileptologist as he recently had an EEG -------- Summary: Onset: Mid-June 2024 Recent Seizure Frequency: Unsure Seizure Description(s) Available: Type A: Either while awake or when sleeping, staring episode, bladder incontinence, unresponsive Duration: Brief Current AED(s): Valproic acid (emotional, fatigue, not able to function normally) Previous AED(s): Levetiracetam Lorazepam PMH: cerebral aneurysm, stroke, left carotid artery occlusion, atrial fibrillation, CABG x 5, DARON, emphysema, PVD, spasticity, aphasia due to old embolic stroke, anxiety PRIOR EVALUATIONS: [facility] [address] 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 No seizures were recorded EEG ([facility], 11/10/2016): This is an abnormal electroencephalogram recording due to the presence of diffuse slowing of background frequencies. This finding indicates the presence of a generalized cerebral disturbance that could be attributed to toxic, metabolic, infectious, or inflammatory etiologies, as well as medication effects. Additionally, the maximal slowing and increased microvoltage over the left hemisphere may further suggest the presence of a focal lesion or focal disturbance in that area. No clear epileptiform discharges were recorded. No electrographic seizures were recorded. MRI brain wo contrast ([facility], 05/07/2024): Evolution of now remote large left MCA territory infarct with progressive gliosis and volume loss compared to 11/10/2016. No acute findings on today's exam. Eenu-vo-gbxeia MRA demonstrates complete occlusion of the left internal carotid artery immediately after the common carotid bifurcation. 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 There is reconstitution of the left MCA via collateral flow via the left JENNIFER and left posterior communicating artery. Small saccular aneurysm approximately 2 mm in size projecting superiorly from the midportion of the anterior communicating artery. Immediately adjacent to this but separate from the dome is a small vessel which extends from the anterior communicating artery into the pericallosal area. -------- RIGO Recommendations: - Admit to EMU for VEEG monitoring, diagnostic evaluation Location: Main [place] or [place] - Visit with epileptologist prior to admission - OK to start with a consult visit if patient prefers. - Additional testing to be considered by epilepsy clinicians Signed: Nayeli Boyle APRN.OPERATIONS LABEL CLERK July 23, [address] Groves for review and recommendations. ------- MD Recommendations (as discussed with Dr. Groves): - Please proceed with the above plan. = Please route this encounter to the EMU Scheduling Pool (P EMU) or PMU Scheduling Pool (P PMU) through LOS AND Follow up = PHASE 1.0 AND 1.5 ORDER SYNOPSIS Patient: Afshin Zee ([id number]) Best contact number: [phone] Insurance: Payor: [facility] MEDICARE / Plan: [facility] DUAL COMPLETE HMO POS SNP / Product Type: Medicare / Scheduling Team: Please call for adult patients: EMU coordinator ([phone]) [place] Coordinator ([phone]) PMU coordinator([phone]) Sorority Mother ([phone]) Please call for pediatric patients: PMU coordinator ([phone]) [place] Coordinator ([phone]) EMU coordinator ([phone] (more content not included)... Normal [facility] CNOVon 07-22-2024 CNOV Office Visit (RITIKA ) AFSHIN ZEE ([id number]) 1955 M Date Time Provider Department 07/22/24 11:30 AM MICHELLE WEBB During your visit today, we recorded the following information about you: Pulse Blood pressure Weight 50/minute 131/76 84.4 kg Michelle Webb PA-C 07/22/2024 12:43 PM Signed ESTABLISHED PATIENT VISIT Last visit: 05/20/24 ASSESSMENT/PLAN: 1. Cerebral aneurysm - ICD9: 437.3, ICD10: I67.1 (primary diagnosis) Patient found to have new 2 mm saccular aneurysm, was referred to neurosurgery due to concern of being on anticoagulation and multiple antiplatelets. No headaches or new symptoms since last appointment, encouraged him to schedule with neurosurgery today. 2. History of stroke - ICD9: V12.54, ICD10: Z86.73 3. Left carotid artery occlusion - ICD9: 433.10, ICD10: I65.22 4. Stenosis of left subclavian artery (HCC) - ICD9: 447.1, ICD10: I77.1 5. History of obstructive sleep apnea - ICD9: 327.23, ICD10: Z86.69 6. History of atrial fibrillation - ICD9: V12.59, ICD10: Z86.79 7. History of coronary artery bypass, five - ICD9: V15.1, ICD10: Z95.1 8. Spasticity - ICD9: 781.0, ICD10: R25.2 9. 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 New MRI of the brain was obtained due to concerns of possible new stroke causing dysphagia. However, showed evolution of old stroke, no new or acute changes on imaging. Will have patient follow with neurosurgery to discuss his current regimen as he does have a new aneurysm found. Is currently on dual antiplatelet therapy as well as Eliquis for atrial fibrillation. No falls, head injuries, altered mental status. Follows with primary care for other risk management including cholesterol and blood pressure. No new symptoms that would warrant additional workup at this time. Encouraged conservative therapy. Additionally, would like a new referral to PMR as he had to cancel his last appointment due to scheduling conflicts. But would still like Botox in his right upper extremity due to spasticity. New consult was placed, patient will schedule this today. Does have a decaler at home and does a lot of physical exercise, encouraged continuation of this. Patient and family agreeable to treatment plan of care at this time, questions were answered. Patient to follow-up in 4 to 5 months or sooner with Dr[address] Aj. Michelle Webb PA-C CHIEF COMPLAINT: follow up HISTORY OF PRESENT ILLNESS: Afshin Zee is a 68 year old male, There were no vitals taken for this visit. with a PMH significant for stroke, insomnia, right hemiaplasia, dysphagia, aphasia, hyperlipidemia, aneurysm, hypertension, CAD, atrial fibrillation, CKD stage III . Patient having episodes of confusion , found to have pneumonia. Worried about keppra causing this and stopped seizure meds. Was recommended stopping keppra and starting onfi 5mg daily and increasing to 10mg, has not started anything. No confusion since being home. Saw CV on 06/01/24 and ordered CTA head and neck, encouraged continuing eliquis and plavix. Patient presents with his family who provides history. notes that he was started on the Depakote but has been taking it, but ever since he has not been himself. Notes he is extremely fatigued, not able to function normally. Did try decreasing to just 1 pill daily but still have these changes. But he is also crying and very emotional on this medication. Sometimes he will not make sense when he is talking. Also had an abnormal episode the other day where he was unable to talk and he urinated himself in bed which is very typical for him. Was hoping to stop the Depakote and try an additional therapy. No new concerns today. REVIEW OF SYSTEMS GENERAL:No weight loss, malaise or fevers. HEENT:Negative for frequent or significant headaches, No changes in hearing or vision, no nose bleeds or other nasal problems NECK:Negative for lumps, goiter, pain and significant neck swelling RESPIRATORY: Negative for cough, wheezing or shortness of breath. CARDIOVASCULAR: Negative for chest pain, leg swelling or palpitations. GASTROINTESTINAL: Negative for abdominal discomfort, blood in stools or black stools or change in bowel habits GENITOURINARY: No history of dysuria, frequency or incontinence MUSCULOSKELETAL: Negative for joint pain or swelling, back pain or muscle pain. NEUROLOGIC:Negative for focal numbness or weakness, headaches and dizziness or syncope, vision changes, speech/languag changes - EXCEPT that as per HPI above. SKIN:Negative for lesions, rash, and itching. PSYCHIATRIC: Negative for sleep disturbance, mood disorder and recent psychosocial stresso (more content not included)... Normal [facility] Veda 07-22-2024 CNPN Telephone (FAMPWS) AFSHIN ZEE ([id number]) 1955 M Date Time Provider Department 07/22/24 JACI ARROYO During your visit today, we recorded the following information about you: Jayde Laughlin RN 07/22/2024 5:01 PM Signed Elida from [facility] with Patient's calls and states that when prescription was sent to [facility] patient did not pay out of pocket. Patient is switching insurance in August and is now going to have to go to [facility]. Per pharmacy this will not be covered by insurance and is not understanding why. Agent and nurse tried to explain to that multivitamins are not always covered under insurance. Agent is asking if there is a formulary exception to multivitamin? asking if prescription can be sent to [facility]? Please review and advise, DIANE Power Ashley, APRN.OPERATIONS LABEL CLERK 07/23/2024 12:04 PM Signed Can you please call the patient's and let her know that I sent a prescription into preferred pharmacy. However I cannot guarantee that insurance will cover a multivitamin. Thank you Jessie Harmon APRN.OPERATIONS LABEL CLERK The following approved medication requests have been transmitted electronically. Requested Prescriptions Signed Prescriptions Disp Refills multivitamin tablet 90 tablet 3 Sig: Take 1 tablet by mouth once daily. Authorizing Provider: JESSIE HARMON APRN.Kassandra Westbrook RN 07/23/2024 1:14 PM Signed Left detailed msg on pt's 's personal voicemail. Instructed that each insurance plan is different and that Multivitamin was sent in as prescription but unsure if their insurance will cover it. Allergies As of Date: 07/22/2024 Noted Allergy Reaction LISINOPRIL 09/27/2016 7 - Swelling 18 - Angioedema Comments: Lip swelling after starting lisinopril. DOXYCYCLINE 12/11/2022 8 - GI Upset 14 - Other: See Comments Comments: GI upset (stomach ache/cramping/diarrhea ) and splotchy face SULFA (SULFONAMIDE ANTIBIOTICS) 03/11/2019 4 - Hives ZPAK (AZITHROMYCIN) 10/03/2018 4 - Hives Date Reviewed: 07/22/2024 Reviewed by: Michelle Webb PA-C - Fully Assessed Reason for Visit: Patient Question [1477] Order(s):multivitamin tabletTake 1 tablet by mouth once daily.Disp: 90 tabletRfl: 3 Prescriptions as of 07/23/2024 - multivitamin tablet Take 1 tablet by mouth once daily. - famotidine (PEPCID) 20 mg tablet Take 20 mg by mouth once daily. - hydroCHLOROthiazide 12.5 mg tablet Take 1 tablet by mouth every morning. - divalproex DR (DEPAKOTE) 500 mg EC tablet Take 1 tablet by mouth two times a day. - levETIRAcetam (KEPPRA) 250 mg tablet Take 1 tablet by mouth two times a day. - clotrimazole-betametha sone (LOTRISONE) cream Apply to affected area two times a day. - levETIRAcetam (KEPPRA) 500 mg tablet Take 1 tablet by mouth two times a day. - baclofen 10 mg tablet Take 1 tablet by mouth three times a day. - OXYGEN, HOME THERAPY, 4 L/min by Nasal Cannula route as directed. - busPIRone (BUSPAR) 15 mg tablet take 1 tablet by mouth three times a day - STIOLTO RESPIMAT 2.5-2.5 mcg/actuation inhaler inhale 2 puffs by mouth as directed once daily - LORazepam (ATIVAN) 1 mg tablet Take 1-2 tablets by mouth three times a day as needed for anxiety for up to 45 days. Take 1-2 pills three times a day - potassium chloride (K-TAB) 10 mEq tablet Take 2 tablets by mouth three times a day. - albuterol (PROVENTIL) 2.5 mg /3 mL (0.083 %) nebulizer solution INHALE 1 VIAL VIA NEBULIZER EVERY 4 HOURS NEEDED FOR WHEEZING/SHORTNESS OF BREATH. USE OVER 5-15 MINUTES - clopidogrel (PLAVIX) 75 mg tablet Take 75 mg by mouth once daily. - amLODIPine (NORVASC) 10 mg tablet Take 0.5 tablets by mouth two times a day. Take 1/2 tablet twice daily - ezetimibe (ZETIA) 10 mg tablet Take 1 tablet by mouth once daily. - losartan (COZAAR) 25 mg tablet Take 1 tablet by mouth once daily. - ferrous sulfate (FEROSUL) 325 mg (65 mg iron) tablet Take 1 tablet by mouth two times a day. - amiodarone (PACERONE) 100 mg tablet TAKE 1 TABLET BY MOUTH ONCE DAILY *DO NOT TAKE IF HEART RATE IS LESS THAN 40* - atorvastatin (LIPITOR) 40 mg tablet take 1 tablet by mouth once daily - escitalopram oxalate (LEXAPRO) 20 mg tablet take 1 tablet by mouth once daily - apixaban (ELIQUIS) 5 mg tab(s) take 1 tablet by mouth twice daily - metoprolol tartrate, short acting, (LOPRESSOR) 25 mg tablet TAKE 1/2 TABLET BY MOUTH TWICE DAILY. HOLD IF HEART RATE IS LESS THAN 60 - acetaminophen (TYLENOL EXTRA STRENGTH) 500 mg tablet Take 2 tablets by mouth three times a day as needed for pain. - traZODone (DESYREL) 100 mg tablet Take 1 tablet by mouth daily at bedtime. - albuterol HFA (PROVENTIL HFA, VENTOLIN HFA) 90 mcg/actuation inhaler Inhale 2 Puffs as instructed every 4 hours as needed. - fluticasone (FL (more content not included)... Normal [facility] CNOVon 07-13-2024 [facility] AFSHIN ZEE ([id number]) 1955 M Date Time Provider Department 07/13/24 1:40 PM [facility] During your visit today, we recorded the following information about you: Pulse Blood pressure Weight Height 48/minute 121/69 84.4 kg 1.778 m Jessie Harmon APRN.CNP 07/13/2024 9:24 PM Signed This is a 68 year old male who presents today with: Patient presents with: Seizures presents in the office with patient, concerned that patient has been acting differently, episodes where he will stare off. Currently not taking any medication for his seizures. Referred to see neurologist before starting new medication. Has upcoming appointment at the end of the month. [facility] discharge, neurology at [facility] recommended weaning off the Keppra and starting clobazam 5 mg daily for 1 week and increase to 5 mg twice daily. did not feel comfortable with this plan. No active seizing noted. Woke up this morning disoriented, balance was off. Refers that he was feeling off. Seems to be doing better as the day has progressed. No incontinence during the day, using urinal, wearing a depend at bedtime. Left knee hurting, pain started today. No injury to the area. Below Copied from last visit with myself. HOSPITAL/ER FOLLOW UP: Reason for visit: Which facility: [facility] Date of visit: 06/26/2024-06/28/2024 Diagnosis: Confusion, Adverse drug reaction, history of seizures, history of ischemic left MCA stroke Testing done: EKG showed first-degree AV block, no ST or T wave changes. Patient hypoxic on arrival to ER. Placed on 4 L nasal cannula. Chest x-ray showed concerning more prominent infiltrate in the right lower lobe. CT brain showed chronic changes of the brain, no acute intracranial pathology. Treatment given: Treated with IV Rocephin for pneumonia. Due to reaction with Keppra, neurology consult recommended Onfi 5 mg daily for 1 week then increase to 10 mg at bedtime. Was provided for weaning off Keppra. Recommend patient following up outpatient with neurology. Pneumonia is still present on repeat chest x-ray, discontinue doxycycline and treated with Levaquin. Current symptoms: refers that she will not give the patient any seizure medication until she speaks with local neurologist (Dr. Aj). Currently not taking any seizure medications at this time. Refers that Afshin has been doing well since coming home. Has not noticed any confusion. Still taking Augmentin for pnumonia. Denies fever or chills. PAST MEDICAL HISTORY: PAST MEDICAL HISTORY Diagnosis Date Acute cerebral infarction (HCC) left LEANN (acute kidney injury) (HCC) Anemia Aneurysm (HCC) Anxiety state Atrial fibrillation (HCC) 11/2016 Balanitis CAD (coronary artery disease) Carotid stenosis COPD (chronic obstructive pulmonary disease) (HCC) Dysphasia Emphysema lung (HCC) History of blood transfusion 03/2023 Hypertension Hypoxia 03/2023 DARON (obstructive sleep apnea) PVD (peripheral vascular disease) (HCC) Respiratory failure (HCC) hypoxic-ventilator dependent Stroke (cerebrum) ([facility]) Tobacco abuse PAST SURGICAL HISTORY Procedure Laterality Date ANKLE SURGERY HX Right 08/07/2023 Dr. Kim. Right ankle ORIF due to fracture CABG CONSULT 10/30/2016 multi vessel COLONOSCOPY SCREENING 04/10/2023 EGD W/O RUST SPEC VARICIES INJ 04/11/2023 EGD W/O RUST SPEC VARICIES INJ 04/10/2023 HEART CATHETERIZATION 09/17/2016 PAST SURGICAL HISTORY OF 2017 Aneurysm and stent surgery related to stroke TRACHEOSTOMY HX ALLERGIES Lisinopril, Doxycycline, Sulfa (Sulfonamide Antibiotics), and Zpak [Azithromycin] MEDICATIONS Current Outpatient Medications Medication Sig cloBAZam (ONFI) 10 mg tab tablet Take 1 tablet by mouth. levETIRAcetam (KEPPRA) 250 mg tablet Take 1 tablet by mouth two times a day. amoxicillin-clavulanat e potassium (AUGMENTIN) 875-125 mg per tablet Take 1 tablet by mouth two times a day. clotrimazole-betametha sone (LOTRISONE) cream Apply to affected area two times a day. levETIRAcetam (KEPPRA) 500 mg tablet Take 1 tablet by mouth two times a day. baclofen 10 mg tablet Take 1 tablet by mouth three times a day. OXYGEN, HOME THERAPY, 4 L/min by Nasal Cannula route as directed. busPIRone (BUSPAR) 15 mg tablet take 1 tablet by mouth three times a day STIOLTO RESPIMAT 2.5-2.5 mcg/actuation inhaler inhale 2 puffs by mouth as directed once daily LORazepam (ATIVAN) 1 mg tablet Take 1-2 tablets by mouth three times a day as needed for anxiety for up to 45 days. Take 1-2 pills three times a day multivitamin tablet Take 1 tablet by mouth once daily. potassium chloride (K-TAB) 10 mEq tablet Take 2 tablets by mouth three times a day. albuterol (PROVENTIL) 2.5 mg /3 mL (0.083 %) nebulizer solution INHALE 1 VIAL VIA NEBULIZER EVERY 4 HOURS NEEDED FOR WHEEZING/SHORTNESS OF BREATH. USE (more content not included)... Normal [facility] 07-07-2024 [facility] ZEE[facility]IN ([id number]) 1955 M Date Time Provider Department 07/07/24 DANIA AJ JR During your visit today, we recorded the following information about you: Allergies As of Date: 07/07/2024 Noted Allergy Reaction LISINOPRIL 09/27/2016 7 - Swelling 18 - Angioedema Comments: Lip swelling after starting lisinopril. DOXYCYCLINE 12/11/2022 8 - GI Upset 14 - Other: See Comments Comments: GI upset (stomach ache/cramping/diarrhea ) and splotchy face SULFA (SULFONAMIDE ANTIBIOTICS) 03/11/2019 4 - Hives ZPAK (AZITHROMYCIN) 10/03/2018 4 - Hives Date Reviewed: 05/20/2024 Reviewed by: Michelle Webb PA-C - Fully Assessed Prescriptions as of 07/07/2024 - cloBAZam (ONFI) 10 mg tab tablet Take 1 tablet by mouth. - levETIRAcetam (KEPPRA) 250 mg tablet Take 1 tablet by mouth two times a day. - amoxicillin-clavulanat e potassium (AUGMENTIN) 875-125 mg per tablet Take 1 tablet by mouth two times a day. - clotrimazole-betametha sone (LOTRISONE) cream Apply to affected area two times a day. - levETIRAcetam (KEPPRA) 500 mg tablet Take 1 tablet by mouth two times a day. - baclofen 10 mg tablet Take 1 tablet by mouth three times a day. - OXYGEN, HOME THERAPY, 4 L/min by Nasal Cannula route as directed. - busPIRone (BUSPAR) 15 mg tablet take 1 tablet by mouth three times a day - STIOLTO RESPIMAT 2.5-2.5 mcg/actuation inhaler inhale 2 puffs by mouth as directed once daily - LORazepam (ATIVAN) 1 mg tablet Take 1-2 tablets by mouth three times a day as needed for anxiety for up to 45 days. Take 1-2 pills three times a day - multivitamin tablet Take 1 tablet by mouth once daily. - potassium chloride (K-TAB) 10 mEq tablet Take 2 tablets by mouth three times a day. - albuterol (PROVENTIL) 2.5 mg /3 mL (0.083 %) nebulizer solution INHALE 1 VIAL VIA NEBULIZER EVERY 4 HOURS NEEDED FOR WHEEZING/SHORTNESS OF BREATH. USE OVER 5-15 MINUTES - clopidogrel (PLAVIX) 75 mg tablet Take 1 tablet by mouth once daily. - amLODIPine (NORVASC) 10 mg tablet Take 0.5 tablets by mouth two times a day. Take 1/2 tablet twice daily - ezetimibe (ZETIA) 10 mg tablet Take 1 tablet by mouth once daily. - losartan (COZAAR) 25 mg tablet Take 1 tablet by mouth once daily. - ferrous sulfate (FEROSUL) 325 mg (65 mg iron) tablet Take 1 tablet by mouth two times a day. - amiodarone (PACERONE) 100 mg tablet TAKE 1 TABLET BY MOUTH ONCE DAILY *DO NOT TAKE IF HEART RATE IS LESS THAN 40* - atorvastatin (LIPITOR) 40 mg tablet take 1 tablet by mouth once daily - escitalopram oxalate (LEXAPRO) 20 mg tablet take 1 tablet by mouth once daily - apixaban (ELIQUIS) 5 mg tab(s) take 1 tablet by mouth twice daily - metoprolol tartrate, short acting, (LOPRESSOR) 25 mg tablet TAKE 1/2 TABLET BY MOUTH TWICE DAILY. HOLD IF HEART RATE IS LESS THAN 60 - acetaminophen (TYLENOL EXTRA STRENGTH) 500 mg tablet Take 2 tablets by mouth three times a day as needed for pain. - traZODone (DESYREL) 100 mg tablet Take 1 tablet by mouth daily at bedtime. - albuterol HFA (PROVENTIL HFA, VENTOLIN HFA) 90 mcg/actuation inhaler Inhale 2 Puffs as instructed every 4 hours as needed. - fluticasone (FLONASE) 50 mcg/actuation nasal spray Use 1 [place] in each nostril twice daily. Rinse mouth after use. - Blood Pressure Monitor kit 1 application twice daily. Measure patient for correct size. Patient needs cuff for left arm readings. - COMPOUNDED PRESCRIPTION Articulating AFO foot brace for right leg. Send to [employer]. Dx: I63.9 - COMPOUNDED PRESCRIPTION EMBER WALKER DX I63.9 weight 162 # Problem List As Of Date 07/07/2024 Noted Resolved Hyperlipidemia [E78.5] 06/06/2010 Elevated blood pressure [[id number]] 06/06/2010 03/20/2019 Erectile dysfunction [N52.9] 06/06/2010 Cervicalgia [M54.2] 04/16/2016 Chronic right shoulder pain [M25.511, G89.29] 04/16/2016 Occlusion of left carotid artery [I65.22] 07/02/2016 Stroke (cerebrum) (HCC) [I63.9] Aneurysm (HCC) [I72.9] Essential hypertension [I10] 06/25/2017 Anxiety [F41.9] 09/04/2017 Chronic insomnia [F51.04] 04/04/2018 Right hemiplegia (HCC) [G81.91] 04/30/2018 Bradycardia [R00.1] 03/20/2019 Dysphasia [R47.02] Coronary artery disease involving [place]os*04/02/2021 Paroxysmal atrial fibrillation (HCC) [I48.0] 04/03/2021 Aphasia as late effect of cerebrovascular accid*05/10/2022 Bacterial pneumonia [J15.9] 11/17/2022 03/12/2023 Tracheostomy status (HCC) [Z93.0] 12/04/2022 02/26/2023 Respiratory failure, unspecified chronicity, un*03/07/2023 03/12/2023 Stage 3a chronic kidney disease (HCC) [N18.31] 03/07/2023 COPD with exacerbation (HCC) [J44.1] 03/12/2023 03/12/2023 Centrilobular emphysema (HCC) [J43.2] 03/12/2023 Former cigarette smoker [Z87.891] 03/12/2023 Stage 3 chronic kidney disease, unspecified whe*06/11/2023 Pre-operative cardiovascula (more content not included)... Normal [facility] CNPN Telephone ([facility]) AFSHIN ZEE ([id number]) 1955 M Date Time Provider Department 07/07/24 JEAN MARIE JAIN, DANIA YOST During your visit today, we recorded the following information about you: Therese Paz LPN 07/07/2024 10:11 AM Signed calling because she has not heard back. Pt was in [facility] ER/Hospital last week. Pt is off his seizure medicines and not sure what he is to be taking. They are trying to get apt with Dr. Aj or [facility] soon. Please call to schedule apt. Very concerned he is off all seizure medication. JAVI Mays Samaria, LPN 07/07/2024 10:56 AM Signed Patient is scheduled 07/07/24 with [facility] Allergies As of Date: 07/07/2024 Noted Allergy Reaction LISINOPRIL 09/27/2016 7 - Swelling 18 - Angioedema Comments: Lip swelling after starting lisinopril. DOXYCYCLINE 12/11/2022 8 - GI Upset 14 - Other: See Comments Comments: GI upset (stomach ache/cramping/diarrhea ) and splotchy face SULFA (SULFONAMIDE ANTIBIOTICS) 03/11/2019 4 - Hives ZPAK (AZITHROMYCIN) 10/03/2018 4 - Hives Date Reviewed: 05/20/2024 Reviewed by: Michelle Webb PA-C - Fully Assessed Reason for Visit: apt needed [Other] Prescriptions as of 07/07/2024 - cloBAZam (ONFI) 10 mg tab tablet Take 1 tablet by mouth. - levETIRAcetam (KEPPRA) 250 mg tablet Take 1 tablet by mouth two times a day. - amoxicillin-clavulanat e potassium (AUGMENTIN) 875-125 mg per tablet Take 1 tablet by mouth two times a day. - clotrimazole-betametha sone (LOTRISONE) cream Apply to affected area two times a day. - levETIRAcetam (KEPPRA) 500 mg tablet Take 1 tablet by mouth two times a day. - baclofen 10 mg tablet Take 1 tablet by mouth three times a day. - OXYGEN, HOME THERAPY, 4 L/min by Nasal Cannula route as directed. - busPIRone (BUSPAR) 15 mg tablet take 1 tablet by mouth three times a day - STIOLTO RESPIMAT 2.5-2.5 mcg/actuation inhaler inhale 2 puffs by mouth as directed once daily - LORazepam (ATIVAN) 1 mg tablet Take 1-2 tablets by mouth three times a day as needed for anxiety for up to 45 days. Take 1-2 pills three times a day - multivitamin tablet Take 1 tablet by mouth once daily. - potassium chloride (K-TAB) 10 mEq tablet Take 2 tablets by mouth three times a day. - albuterol (PROVENTIL) 2.5 mg /3 mL (0.083 %) nebulizer solution INHALE 1 VIAL VIA NEBULIZER EVERY 4 HOURS NEEDED FOR WHEEZING/SHORTNESS OF BREATH. USE OVER 5-15 MINUTES - clopidogrel (PLAVIX) 75 mg tablet Take 1 tablet by mouth once daily. - amLODIPine (NORVASC) 10 mg tablet Take 0.5 tablets by mouth two times a day. Take 1/2 tablet twice daily - ezetimibe (ZETIA) 10 mg tablet Take 1 tablet by mouth once daily. - losartan (COZAAR) 25 mg tablet Take 1 tablet by mouth once daily. - ferrous sulfate (FEROSUL) 325 mg (65 mg iron) tablet Take 1 tablet by mouth two times a day. - amiodarone (PACERONE) 100 mg tablet TAKE 1 TABLET BY MOUTH ONCE DAILY *DO NOT TAKE IF HEART RATE IS LESS THAN 40* - atorvastatin (LIPITOR) 40 mg tablet take 1 tablet by mouth once daily - escitalopram oxalate (LEXAPRO) 20 mg tablet take 1 tablet by mouth once daily - apixaban (ELIQUIS) 5 mg tab(s) take 1 tablet by mouth twice daily - metoprolol tartrate, short acting, (LOPRESSOR) 25 mg tablet TAKE 1/2 TABLET BY MOUTH TWICE DAILY. HOLD IF HEART RATE IS LESS THAN 60 - acetaminophen (TYLENOL EXTRA STRENGTH) 500 mg tablet Take 2 tablets by mouth three times a day as needed for pain. - traZODone (DESYREL) 100 mg tablet Take 1 tablet by mouth daily at bedtime. - albuterol HFA (PROVENTIL HFA, VENTOLIN HFA) 90 mcg/actuation inhaler Inhale 2 Puffs as instructed every 4 hours as needed. - fluticasone (FLONASE) 50 mcg/actuation nasal spray Use 1 [place] in each nostril twice daily. Rinse mouth after use. - Blood Pressure Monitor kit 1 application twice daily. Measure patient for correct size. Patient needs cuff for left arm readings. - COMPOUNDED PRESCRIPTION Articulating AFO foot brace for right leg. Send to [employer]. Dx: I63.9 - COMPOUNDED PRESCRIPTION EMBER WALKER DX I63.9 weight 162 # Problem List As Of Date 07/07/2024 Noted Resolved Hyperlipidemia [E78.5] 06/06/2010 Elevated blood pressure [[id number]] 06/06/2010 03/20/2019 Erectile dysfunction [N52.9] 06/06/2010 Cervicalgia [M54.2] 04/16/2016 Chronic right shoulder pain [M25.511, G89.29] 04/16/2016 Occlusion of left carotid artery [I65.22] 07/02/2016 Stroke (cerebrum) (HCC) [I63.9] Aneurysm (HCC) [I72.9] Essential hypertension [I10] 06/25/2017 Anxiety [F41.9] 09/04/2017 Chronic insomnia [F51.04] 04/04/2018 Right hemiplegia (HCC) [G81.91] 04/30/2018 Bradycardia [R00.1] 03/20/2019 Dysphasia [R47.02] Coronary artery disease involving [place]os*04/02/2021 Paroxysmal atrial fibrillation (HCC) [I48.0] 04/03/2021 Aphasia as late effect of cerebrovascular accid (more content not included)... Normal [facility] CNOVon 07-01-2024 CNOV Office Visit ([facility] ) AFSHIN ZEE ([id number]) 1955 M Date Time Provider Department 07/01/24 10:20 AM JESSIE HARMON [facility] During your visit today, we recorded the following information about you: Pulse Respiration Blood pressure Height 77/minute 12/minute 110/62 1.778 m Jessie Harmon APRN.CNP 07/01/2024 4:13 PM Signed This is a 68 year old male who presents today with: Patient presents with: ER F/U: [facility] ER- Saturday walking pneumonia, then ER Saturday- seizure (), also needs letter stating that he can not make decisions for himself HISTORY OF PRESENT ILLNESS: Afshin Zee is a 68 year old male. Patient presents with: ER F/U: [facility] ER- Saturday walking pneumonia, then ER Saturday- seizure (), also needs letter stating that he can not make decisions for himself HOSPITAL/ER FOLLOW UP: Reason for visit: Which facility: [facility] Date of visit: 06/26/2024-06/28/2024 Diagnosis: Confusion, Adverse drug reaction, history of seizures, history of ischemic left MCA stroke Testing done: EKG showed first-degree AV block, no ST or T wave changes. Patient hypoxic on arrival to ER. Placed on 4 L nasal cannula. Chest x-ray showed concerning more prominent infiltrate in the right lower lobe. CT brain showed chronic changes of the brain, no acute intracranial pathology. Treatment given: Treated with IV Rocephin for pneumonia. Due to reaction with Keppra, neurology consult recommended Onfi 5 mg daily for 1 week then increase to 10 mg at bedtime. Was provided for weaning off Keppra. Recommend patient following up outpatient with neurology. Pneumonia is still present on repeat chest x-ray, discontinue doxycycline and treated with Levaquin. Current symptoms: refers that she will not give the patient any seizure medication until she speaks with local neurologist (Dr. Aj). Currently not taking any seizure medications at this time. Refers that Afshin has been doing well since coming home. Has not noticed any confusion. Still taking Augmentin for pnumonia. Denies fever or chills. PAST MEDICAL HISTORY: PAST MEDICAL HISTORY Diagnosis Date Acute cerebral infarction (HCC) left LEANN (acute kidney injury) (HCC) Anemia Aneurysm (HCC) Anxiety state Atrial fibrillation (HCC) 11/2016 Balanitis CAD (coronary artery disease) Carotid stenosis COPD (chronic obstructive pulmonary disease) (HCC) Dysphasia Emphysema lung (HCC) History of blood transfusion 03/2023 Hypertension Hypoxia 03/2023 DARON (obstructive sleep apnea) PVD (peripheral vascular disease) (HCC) Respiratory failure (HCC) hypoxic-ventilator dependent Stroke (cerebrum) (HCC) Tobacco abuse PAST SURGICAL HISTORY Procedure Laterality Date ANKLE SURGERY HX Right 08/07/2023 Dr. Kim. Right ankle ORIF due to fracture CABG CONSULT 10/30/2016 multi vessel COLONOSCOPY SCREENING 04/10/2023 EGD W/O RUST SPEC VARICIES INJ 04/11/2023 EGD W/O RUST SPEC VARICIES INJ 04/10/2023 HEART CATHETERIZATION 09/17/2016 PAST SURGICAL HISTORY OF 2017 Aneurysm and stent surgery related to stroke TRACHEOSTOMY HX ALLERGIES Lisinopril, Doxycycline, Sulfa (Sulfonamide Antibiotics), and Zpak [Azithromycin] MEDICATIONS Current Outpatient Medications Medication Sig clotrimazole-betametha sone (LOTRISONE) cream Apply to affected area two times a day. levETIRAcetam (KEPPRA) 500 mg tablet Take 1 tablet by mouth two times a day. baclofen 10 mg tablet Take 1 tablet by mouth three times a day. OXYGEN, HOME THERAPY, 4 L/min by Nasal Cannula route as directed. busPIRone (BUSPAR) 15 mg tablet take 1 tablet by mouth three times a day STIOLTO RESPIMAT 2.5-2.5 mcg/actuation inhaler inhale 2 puffs by mouth as directed once daily LORazepam (ATIVAN) 1 mg tablet Take 1-2 tablets by mouth three times a day as needed for anxiety for up to 45 days. Take 1-2 pills three times a day multivitamin tablet Take 1 tablet by mouth once daily. potassium chloride (K-TAB) 10 mEq tablet Take 2 tablets by mouth three times a day. albuterol (PROVENTIL) 2.5 mg /3 mL (0.083 %) nebulizer solution INHALE 1 VIAL VIA NEBULIZER EVERY 4 HOURS NEEDED FOR WHEEZING/SHORTNESS OF BREATH. USE OVER 5-15 MINUTES clopidogrel (PLAVIX) 75 mg tablet Take 1 tablet by mouth once daily. (Patient not taking: Reported on 06/25/2024) amLODIPine (NORVASC) 10 mg tablet Take 0.5 tablets by mouth two times a day. Take 1/2 tablet twice daily ezetimibe (ZETIA) 10 mg tablet Take 1 tablet by mouth once daily. losartan (COZAAR) 25 mg tablet Take 1 tablet by mouth once daily. ferrous sulfate (FEROSUL) 325 mg (65 mg iron) tablet Take 1 tablet by mouth two times a day. amiodarone (PACERONE) 100 mg tablet TAKE 1 TABLET BY MOUTH ONCE DAILY *DO NOT TAKE IF HEART RATE IS LESS THAN 40* atorvastatin (LIPITOR) 40 mg tablet take 1 tablet by mouth once daily escitalopram oxalate (more content not included)... Normal [facility] Basic Metabolic Profile (BMP )on 06-29-2024 BUN Normal 7-18 [facility] Comment on above: Result Comment: Canc elled via OM: Order cancelled - Patient discharged Performed By: #### L 500.2500, L100.0100 ####[facility] [address] [facility] [address] BUN/CRE Normal 10-20 [facility] Comment on above: Result Comment: Canc elled via OM: Order cancelled - Patient discharged Performed By: #### L 500.2500, L100.0100 ####[facility] [address] [place], [address] CA,Total Normal 8.5-10.1 [facility] Comment on above: Result Comment: Canc elled via OM: Order cancelled - Patient discharged Performed By: #### L 500.2500, L100.0100 ####[facility] [address] [facility] [address] CL Normal 98-107 [facility] Comment on above: Result Comment: Canc elled via OM: Order cancelled - Patient discharged Performed By: #### L 500.2500, L100.0100 ####[facility] [address] [place], [address] CO2 Normal 21.0-32.0 [facility] Comment on above: Result Comment: Canc elled via OM: Order cancelled - Patient discharged Performed By: #### L 500.2500, L100.0100 ####[facility] [address] [place], [address] CREAT,SERUM Normal 0.70-1.30 [facility] Comment on above: Result Comment: Canc elled via OM: Order cancelled - Patient discharged Performed By: #### L 500.2500, L100.0100 ####[facility] [address] [place], [address] EST GFR Normal >60 [facility] Comment on above: Result Comment: Canc elled via OM: Order cancelled - Patient discharged Performed By: #### L 500.2500, L100.0100 ####[facility] [address] [place], [address] EST GFR - AA Normal >60 [facility] Comment on above: Result Comment: Canc elled via OM: Order cancelled - Patient discharged Performed By: #### L 500.2500, L100.0100 ####[facility] [address] [place], [address] GAP Normal 5-15 [facility] Comment on above: Result Comment: Canc elled via OM: Order cancelled - Patient discharged Performed By: #### L 500.2500, L100.0100 ####[facility] [address] [place], [address] GLU Normal 74-106 [facility] Comment on above: Result Comment: Canc elled via OM: Order cancelled - Patient discharged Performed By: #### L 500.2500, L100.0100 ####[facility] [address] [place], [address] Potassium Normal 3.5-5.1 [facility] Comment on above: Result Comment: Canc elled via OM: Order cancelled - Patient discharged Performed By: #### L 500.2500, L100.0100 ####[facility] [address] [place], [address] Basic Metabolic Profile (BMP) Normal 136-145 [facility] Comment on above: Result Comment: Canc elled via OM: Order cancelled - Patient discharged Performed By: #### L 500.2500, L100.0100 ####[facility] [address] [place], [address] Bedside Glucoseon 06-29-2024 FINGERSTICK GLU 133 mg/dL High 74-106 [facility] Comment on above: Result Comment: MIKE CRAABALLO OF PATIENT CARE PER NURSING PROTOCOL Performed By: #### L 501.080 ####[facility] [address] [place], [address] CBC W/Diff, Automatedon 06-06 Absolute Neut Normal 2.0-7.7 [facility] Comment on above: Result Comment: Canc elled via OM: Order cancelled - Patient discharged Performed By: #### L 500.2500, L100.0100 ####[facility] [address] [place], [address] HCT Normal 40-54 [facility] Comment on above: Result Comment: Canc elled via OM: Order cancelled - Patient discharged Performed By: #### L 500.2500, L100.0100 ####[facility] [address] [place], [address] HGB Normal 13.0-16.5 [facility] Comment on above: Result Comment: Canc elled via OM: Order cancelled - Patient discharged Performed By: #### L 500.2500, L100.0100 ####[facility] [address] [place], [address] MCH Normal 27.0-32.0 [facility] Comment on above: Result Comment: Canc elled via OM: Order cancelled - Patient discharged Performed By: #### L 500.2500, L100.0100 ####[facility] [address] [place], [address] MCHC Normal 32-36 [facility] Comment on above: Result Comment: Canc elled via OM: Order cancelled - Patient discharged Performed By: #### L 500.2500, L100.0100 ####[facility] [address] [place], [address] MCV Normal 80-94 [facility] Comment on above: Result Comment: Canc elled via OM: Order cancelled - Patient discharged Performed By: #### L 500.2500, L100.0100 ####[facility] [address] [place], [address] NEUT% Normal 47-70 [facility] Comment on above: Result Comment: Canc elled via OM: Order cancelled - Patient discharged Performed By: #### L 500.2500, L100.0100 ####[facility] [address] [place], [address] PLT Normal 150-450 [facility] Comment on above: Result Comment: Canc elled via OM: Order cancelled - Patient discharged Performed By: #### L 500.2500, L100.0100 ####[facility] [address] [place], [address] RBC Normal 4.6-6.2 [facility] Comment on above: Result Comment: Canc elled via OM: Order cancelled - Patient discharged Performed By: #### L 500.2500, L100.0100 ####[facility] [address] [place], [address] RDW CV Normal 11.6-14.6 [facility] Comment on above: Result Comment: Canc elled via OM: Order cancelled - Patient discharged Performed By: #### L 500.2500, L100.0100 ####[facility] [address] [place], [address] RDW SD Normal 35.1-43.9 [facility] Comment on above: Result Comment: Canc elled via OM: Order cancelled - Patient discharged Performed By: #### L 500.2500, L100.0100 ####[facility] [address] [place], [address] WBC Normal 4.4-11.0 [facility] Comment on above: Result Comment: Canc elled via OM: Order cancelled - Patient discharged Performed By: #### L 500.2500, L100.0100 ####[facility] [address] [place], [address] CNPNon 06-29-2024 CNPN Telephone (FAMPWS) AFSHIN ZEE ([id number]) 1955 M Date Time Provider Department 06/29/24 [facility] During your visit today, we recorded the following information about you: Jayde Laughlin RN 06/29/2024 11:41 AM Signed Cathy Siu from [facility] calls and reports that patient was in [facility] ER on 06/26 and diagnosed with Pneumonia and was put on antibiotics. On 06/27 patient was taken to [facility] ER again for breakthrough seizures. Patient was admitted and then discharged on 06/28/2024. DIANE Power William J, MD 06/29/2024 12:22 PM Signed noted Amaya Blanco 06/29/2024 1:14 PM Signed Spouse called looking for below appt with Dr Aj. Please advise the spouse. Allergies As of Date: 06/29/2024 Noted Allergy Reaction LISINOPRIL 09/27/2016 7 - Swelling 18 - Angioedema Comments: Lip swelling after starting lisinopril. DOXYCYCLINE 12/11/2022 8 - GI Upset 14 - Other: See Comments Comments: GI upset (stomach ache/cramping/diarrhea ) and splotchy face SULFA (SULFONAMIDE ANTIBIOTICS) 03/11/2019 4 - Hives ZPAK (AZITHROMYCIN) 10/03/2018 4 - Hives Date Reviewed: 05/20/2024 Reviewed by: Michelle Webb PA-C - Fully Assessed Reason for Visit: Patient Update [1234] Prescriptions as of 06/29/2024 - clotrimazole-betametha sone (LOTRISONE) cream Apply to affected area two times a day. - levETIRAcetam (KEPPRA) 500 mg tablet Take 1 tablet by mouth two times a day. - baclofen 10 mg tablet Take 1 tablet by mouth three times a day. - OXYGEN, HOME THERAPY, 4 L/min by Nasal Cannula route as directed. - busPIRone (BUSPAR) 15 mg tablet take 1 tablet by mouth three times a day - STIOLTO RESPIMAT 2.5-2.5 mcg/actuation inhaler inhale 2 puffs by mouth as directed once daily - LORazepam (ATIVAN) 1 mg tablet Take 1-2 tablets by mouth three times a day as needed for anxiety for up to 45 days. Take 1-2 pills three times a day - multivitamin tablet Take 1 tablet by mouth once daily. - potassium chloride (K-TAB) 10 mEq tablet Take 2 tablets by mouth three times a day. - albuterol (PROVENTIL) 2.5 mg /3 mL (0.083 %) nebulizer solution INHALE 1 VIAL VIA NEBULIZER EVERY 4 HOURS NEEDED FOR WHEEZING/SHORTNESS OF BREATH. USE OVER 5-15 MINUTES - clopidogrel (PLAVIX) 75 mg tablet Take 1 tablet by mouth once daily. - amLODIPine (NORVASC) 10 mg tablet Take 0.5 tablets by mouth two times a day. Take 1/2 tablet twice daily - ezetimibe (ZETIA) 10 mg tablet Take 1 tablet by mouth once daily. - losartan (COZAAR) 25 mg tablet Take 1 tablet by mouth once daily. - ferrous sulfate (FEROSUL) 325 mg (65 mg iron) tablet Take 1 tablet by mouth two times a day. - amiodarone (PACERONE) 100 mg tablet TAKE 1 TABLET BY MOUTH ONCE DAILY *DO NOT TAKE IF HEART RATE IS LESS THAN 40* - atorvastatin (LIPITOR) 40 mg tablet take 1 tablet by mouth once daily - escitalopram oxalate (LEXAPRO) 20 mg tablet take 1 tablet by mouth once daily - apixaban (ELIQUIS) 5 mg tab(s) take 1 tablet by mouth twice daily - metoprolol tartrate, short acting, (LOPRESSOR) 25 mg tablet TAKE 1/2 TABLET BY MOUTH TWICE DAILY. HOLD IF HEART RATE IS LESS THAN 60 - acetaminophen (TYLENOL EXTRA STRENGTH) 500 mg tablet Take 2 tablets by mouth three times a day as needed for pain. - traZODone (DESYREL) 100 mg tablet Take 1 tablet by mouth daily at bedtime. - albuterol HFA (PROVENTIL HFA, VENTOLIN HFA) 90 mcg/actuation inhaler Inhale 2 Puffs as instructed every 4 hours as needed. - fluticasone (FLONASE) 50 mcg/actuation nasal spray Use 1 [place] in each nostril twice daily. Rinse mouth after use. - Blood Pressure Monitor kit 1 application twice daily. Measure patient for correct size. Patient needs cuff for left arm readings. - COMPOUNDED PRESCRIPTION Articulating AFO foot brace for right leg. Send to [employer]. Dx: I63.9 - COMPOUNDED PRESCRIPTION EMBER WALKER DX I63.9 weight 162 # Problem List As Of Date 06/29/2024 Noted Resolved Hyperlipidemia [E78.5] 06/06/2010 Elevated blood pressure [TQR1621] 06/06/2010 03/20/2019 Erectile dysfunction [N52.9] 06/06/2010 Cervicalgia [M54.2] 04/16/2016 Chronic right shoulder pain [M25.511, G89.29] 04/16/2016 Occlusion of left carotid artery [I65.22] 07/02/2016 Stroke (cerebrum) (HCC) [I63.9] Aneurysm (HCC) [I72.9] Essential hypertension [I10] 06/25/2017 Anxiety [F41.9] 09/04/2017 Chronic insomnia [F51.04] 04/04/2018 Right hemiplegia (HCC) [G81.91] 04/30/2018 Bradycardia [R00.1] 03/20/2019 Dysphasia [R47.02] Coronary artery disease involving [place]*04/02/2021 Paroxysmal atrial fibrillation (HCC) [I48.0] 04/03/2021 Aphasia as late effect of cerebrovascular accid*05/10/2022 Bacterial pneumonia [J15.9] 11/17/2022 03/12/2023 Tracheostomy status (HCC) [Z93.0] 12/04/2022 02/26/2023 Respiratory failure, unspecified chronicity, un* (more content not included)... Normal [facility] Urine Cultureon 06-29-2024 URC Culture exhibits no growth. Normal [facility] Comment on above: Performed By: #### L 500.2500, L300.3900, L300.4310, L100.0100 #### [facility] [address], [address] Vitamin B12on 06-29-2024 Cobalamin (Vitamin B12) [Mass/Vol] 425 pg/mL Normal 211-911 [facility] Comment on above: Performed By: #### L 500.4100, L501.9985, L505.5000, L503.0105 ####[facility] [address] [place], [address] 12 Lead EKGon 06-28-2024 12 Lead EKG [facility] Services [address] [place] [address] 12 Lead EKG 06/28/24 1429 MR#: [id number] Acct: [id number] Name: AFSHIN ZEE Rep #: [id number] : 1955 68 From: Lissa Michel MD Attending Dr: Dr. Dov Marin, Status: DIS JUMANA Ordering Dr: Dov Marin DO Date: 06/28/24 Location: U Sex: M C Admitted: 06/28/24 Test Reason : INITIATION OF MED Blood Pressure : */* mmHG Vent. Rate : 51 BPM Atrial Rate : 51 BPM P-R Int : 232 ms QRS Dur : 92 ms QT Int : 500 ms P-R-T Axes : 41 -47 85 degrees QTcB Int : 460 ms Sinus bradycardia with 1st degree A-V block Left anterior fascicular block Cannot rule out Inferior infarct (masked by fascicular block?) , age undetermined Abnormal ECG When compared with ECG of 27-Jun-2024 22:17, MANUAL COMPARISON REQUIRED DATA IS UNCONFIRMED Confirmed by Lissa Michel ([id number]), copy editor KHRIS HOPKINS ([id number]) on 06/29/2024 9:57:47 AM Referred By: Confirmed By: Lissa Michel 06/29/24 0957 Date Lissa Michel MD CC: Dr. Dov Marin, DO; Dr. Jaci Arroyo MD Signed Normal [facility] CBC W/Diff, Automatedon 06-06 Absolute Lymph 2.02 X10 3/uL Normal 0.83-4.51 [facility] Comment on above: Performed By: #### L 100.0100, L500.4050, L500.4100, L501.2300, L501.5200, L506.0250 ####[facility] [address] [place], [address] Absolute Neut 5.1 X10 3/uL Normal 2.0-7.7 [facility] Comment on above: Performed By: #### L 100.0100, L500.4050, L500.4100, L501.2300, L501.5200, L506.0250 ####[facility] [address] [place], [address] Basophils/100 WBC (Bld) 0.9 % Normal 0-1 [facility] Comment on above: Performed By: #### L 100.0100, L500.4050, L500.4100, L501.2300, L501.5200, L506.0250 ####[facility] [address] [place], [address] Eosinophils/100 WBC (Bld) 8.3 % High 0-5 [facility] Comment on above: Performed By: #### L 100.0100, L500.4050, L500.4100, L501.2300, L501.5200, L506.0250 ####[facility] [address] [place], [address] Erythrocyte distribution width (RBC) [Ratio] 12.6 % Normal 11.6-14.6 [facility] Comment on above: Performed By: #### L 100.0100, L500.4050, L500.4100, L501.2300, L501.5200, L506.0250 ####[facility] [address] [place], [address] Hematocrit (Bld) [Volume fraction] 37.8 % Low 40-54 [facility] Comment on above: Performed By: #### L 100.0100, L500.4050, L500.4100, L501.2300, L501.5200, L506.0250 ####[facility] [address] [place], [address] Hemoglobin (Bld) [Mass/Vol] 12.6 g/dL Low 13.0-16.5 [facility] Comment on above: Performed By: #### L 100.0100, L500.4050, L500.4100, L501.2300, L501.5200, L506.0250 ####[facility] [address] [place], [address] IG% 1.600 High 0.0-0.9 [facility] Comment on above: Result Comment: IG% - Immature Granulocytes (promyelocytes, myelocytes and metamyelocytes) > 1% indicates that a LEFT SHIFT is Present. Performed By: #### L 100.0100, L500.4050, L500.4100, L501.2300, L501.5200, L506.0250 ####[facility] [address] [place], [address] Lymphocytes/100 WBC (Bld) 22.0 % Normal 19-41 [facility] Comment on above: Performed By: #### L 100.0100, L500.4050, L500.4100, L501.2300, L501.5200, L506.0250 ####[facility] [address] [place], [address] MCH (RBC) [Entitic mass] 31.3 pg Normal 27.0-32.0 [facility] Comment on above: Performed By: #### L 100.0100, L500.4050, L500.4100, L501.2300, L501.5200, L506.0250 ####[facility] [address] [place], [address] MCHC (RBC) [Mass/Vol] 33.3 g/dL Normal 32-36 [facility] Comment on above: Performed By: #### L 100.0100, L500.4050, L500.4100, L501.2300, L501.5200, L506.0250 ####[facility] [address] [place], [address] MCV (RBC) [Entitic vol] 94.0 fL Normal 80-94 [facility] Comment on above: Performed By: #### L 100.0100, L500.4050, L500.4100, L501.2300, L501.5200, L506.0250 ####[facility] [address] [place], [address] Monocytes/100 WBC (Bld) 11.5 % High 0-10 [facility] Comment on above: Performed By: #### L 100.0100, L500.4050, L500.4100, L501.2300, L501.5200, L506.0250 ####[facility] [address] [place], [address] Neutrophils/100 WBC (Bld) 55.7 % Normal 47-70 [facility] Comment on above: Performed By: #### L 100.0100, L500.4050, L500.4100, L501.2300, L501.5200, L506.0250 ####[facility] [address] [place], [address] Nucleated RBC (Bld) [#/Vol] 0 10*3/uL Normal 0-5 [facility] Comment on above: Performed By: #### L 100.0100, L500.4050, L500.4100, L501.2300, L501.5200, L506.0250 ####[facility] [address] [place], [address] Platelet mean volume (Bld) [Entitic vol] 11.5 fL Normal 6.2-12.0 [facility] Comment on above: Performed By: #### L 100.0100, L500.4050, L500.4100, L501.2300, L501.5200, L506.0250 ####[facility] [address] [place], [address] Platelets (Bld) [#/Vol] 216 10*3/uL Normal 150-450 [facility] Comment on above: Performed By: #### L 100.0100, L500.4050, L500.4100, L501.2300, L501.5200, L506.0250 ####[facility] [address] [place], [address] RBC (Bld) [#/Vol] 4.02 10*6/uL Low 4.6-6.2 [facility] Comment on above: Performed By: #### L 100.0100, L500.4050, L500.4100, L501.2300, L501.5200, L506.0250 ####[facility] [address] [place], [address] RDW SD 43.2 fl Normal 35.1-43.9 [facility] Comment on above: Performed By: #### L 100.0100, L500.4050, L500.4100, L501.2300, L501.5200, L506.0250 ####[facility] [address] [place], [address] WBC (Bld) [#/Vol] 9.2 10*3/uL Normal 4.4-11.0 [facility] Comment on above: Performed By: #### L 100.0100, L500.4050, L500.4100, L501.2300, L501.5200, L506.0250 ####[facility] [address] [place], [address] Comprehensive Metabolic Prof ilon 06-28-2024 Albumin [Mass/Vol] 3.0 g/dL Low 3.2-5.0 [facility] Comment on above: Order Comment: N Performed By: #### L 100.0100, L500.4050, L500.4100, L501.2300, L501.5200, L506.0250 ####[facility] [address] [place], [address] Albumin/Globulin [Mass ratio] 0.9 {ratio} Normal 0.9-2.4 [facility] Comment on above: Order Comment: N Performed By: #### L 100.0100, L500.4050, L500.4100, L501.2300, L501.5200, L506.0250 ####[facility] [address] [place], [address] ALK P 102 U/L Normal 45-117 [facility] Comment on above: Order Comment: N Performed By: #### L 100.0100, L500.4050, L500.4100, L501.2300, L501.5200, L506.0250 ####[facility] [address] [place], [address] ALT [Catalytic activity/Vol] 18 U/L Normal 16-61 [facility] Comment on above: Order Comment: N Performed By: #### L 100.0100, L500.4050, L500.4100, L501.2300, L501.5200, L506.0250 ####[facility] [address] [place], [place], [phone] AST [Catalytic activity/Vol] 15 U/L Normal 15-37 [facility] Comment on above: Order Comment: N Performed By: #### L 100.0100, L500.4050, L500.4100, L501.2300, L501.5200, L506.0250 ####[facility] [address] [place], [place], [id number]) Bilirubin [Mass/Vol] 0.50 mg/dL Normal 0.20-1.00 [facility] Comment on above: Order Comment: N Result Comment: For patients on eltrombopag therapy, use of Dimension [place] TBIL is not recommended. Performed By: #### L 100.0100, L500.4050, L500.4100, L501.2300, L501.5200, L506.0250 ####[facility] [address] [place], [address] BUN/CRE 14.2 RATIO Normal 10-20 [facility] Comment on above: Order Comment: N Performed By: #### L 100.0100, L500.4050, L500.4100, L501.2300, L501.5200, L506.0250 ####[facility] [address] [place], [place], [phone] CA,Total 8.5 mg/dL Normal 8.5-10.1 [facility] Comment on above: Order Comment: N Performed By: #### L 100.0100, L500.4050, L500.4100, L501.2300, L501.5200, L506.0250 ####[facility] [address] [place], [address] Chloride [Moles/Vol] 112 mmol/L High 98-107 [facility] Comment on above: Order Comment: N Performed By: #### L 100.0100, L500.4050, L500.4100, L501.2300, L501.5200, L506.0250 ####[facility] [address] [place], [address] CO2 [Moles/Vol] 27.0 mmol/L Normal 21.0-32.0 [facility] Comment on above: Order Comment: N Performed By: #### L 100.0100, L500.4050, L500.4100, L501.2300, L501.5200, L506.0250 ####[facility] [address] [place], [address] Creatinine [Mass/Vol] 1.06 mg/dL Normal 0.70-1.30 [facility] Comment on above: Order Comment: N Result Comment: The validity of the calculated GFR GFRAA in patients over 70 years has not been determined. Clinical correlation is essential. Performed By: #### L 100.0100, L500.4050, L500.4100, L501.2300, L501.5200, L506.0250 ####[facility] [address] [place], [address] ECRCL 75.43 ml/min Normal [facility] Comment on above: Order Comment: N Performed By: #### L 100.0100, L500.4050, L500.4100, L501.2300, L501.5200, L506.0250 ####[facility] [address] [place], [address] EST GFR - AA 89 mL/min Normal >60 [facility] Comment on above: Order Comment: N Result Comment: Afri can Ghanaian GFR Calc Performed By: #### L 100.0100, L500.4050, L500.4100, L501.2300, L501.5200, L506.0250 ####[facility] [address] [place], [address] GAP 5 Normal 5-15 [facility] Comment on above: Order Comment: N Performed By: #### L 100.0100, L500.4050, L500.4100, L501.2300, L501.5200, L506.0250 ####[facility] [address] [place], [address] GFR/1.73 sq M.predicted among non-blacks MDRD (S/P/Bld) [Vol rate/Area] 74 mL/min/{1.73_m2} Normal >60 [facility] Comment on above: Order Comment: N Result Comment: Non- GFR Calc Performed By: #### L 100.0100, L500.4050, L500.4100, L501.2300, L501.5200, L506.0250 ####[facility] [address] [place], [address] Globulin (S) [Mass/Vol] 3.3 g/dL Normal 2.2-4.2 [facility] Comment on above: Order Comment: N Performed By: #### L 100.0100, L500.4050, L500.4100, L501.2300, L501.5200, L506.0250 ####[facility] [address] [place], [address] Glucose [Mass/Vol] 123 mg/dL High 74-106 [facility] Comment on above: Order Comment: N Result Comment: Fast ing Glucose result from 100 to 125 mg/dL suggests IMPAIRED HOMEOSTASIS per A.D.A. criteria. Performed By: #### L 100.0100, L500.4050, L500.4100, L501.2300, L501.5200, L506.0250 ####[facility] [address] [place], [address] Potassium [Moles/Vol] 3.8 mmol/L Normal 3.5-5.1 [facility] Comment on above: Order Comment: N Performed By: #### L 100.0100, L500.4050, L500.4100, L501.2300, L501.5200, L506.0250 ####[facility] [address] [place], [address] Sodium [Moles/Vol] 144 mmol/L Normal 136-145 [facility] Comment on above: Order Comment: N Performed By: #### L 100.0100, L500.4050, L500.4100, L501.2300, L501.5200, L506.0250 ####[facility] [address] [place], [address] T PROT 6.3 g/dL Low 6.4-8.2 [facility] Comment on above: Order Comment: N Performed By: #### L 100.0100, L500.4050, L500.4100, L501.2300, L501.5200, L506.0250 ####[facility] [address] [place], [address] Urea nitrogen [Mass/Vol] 15 mg/dL Normal 7-18 [facility] Comment on above: Order Comment: N Performed By: #### L 100.0100, L500.4050, L500.4100, L501.2300, L501.5200, L506.0250 ####[facility] [address] [place], [address] Folates, (Folic Acid)on 06-06 FOLATES 13.60 ng/mL Normal 3.1-55.4 [facility] Comment on above: Order Comment: N Performed By: #### L 100.0100, L500.4050, L500.4100, L501.2300, L501.5200, L506.0250 ####[facility] [address] [place], [address] Hemoglobin A1con 06-28-2024 HbA1c (Bld) [Mass fraction] 5.0 % Normal 3.8-5.6 [facility] Comment on above: Result Comment: Norm al < 5.7 % Prediabetic 5.7 - 6.4 % Diabetic >or= 6.5 % Please note range changes. Performed By: #### L 500.4100, L501.9985, L505.5000, L503.0105 ####[facility] [address] [place], [address] Legionella Antigen Urineon 08-28-2023 LEGU URINE, CLEAN CATCH Legionella Antigen result interpretation: L pneumo Ag Ur Ql Negative Presumptive negative for Legionella pneumophila serogroup 1 antigen in urine, suggesting no recent or current infection. Legionella Ag, Urine Negative (See interpretation below) Normal [facility] Comment on above: Performed By: #### M 300.4500, M300.4600 ####[facility] [address] [place], [address] Lipid Profileon 06-28-2024 Cholesterol [Mass/Vol] 128 mg/dL Normal 200 [facility] Comment on above: Order Comment: N Result Comment: <200 mg/dL Desirable 200-240 mg/dL Borderline >240 mg/dL High Risk Performed By: #### L 100.0100, L500.4050, L500.4100, L501.2300, L501.5200, L506.0250 ####[facility] [address] [place], [address] Cholesterol in HDL [Mass/Vol] 38 mg/dL Low [facility] Comment on above: Order Comment: N Result Comment: The drugs N-Acetylcysteine and Metamizole may falsely depress this assay. Reference Range HDL <40 mg/dL Low HDL Cholesterol HDL >or= 60 mg/dL High HDL Cholesterol Performed By: #### L 100.0100, L500.4050, L500.4100, L501.2300, L501.5200, L506.0250 ####[facility] [address] [place], [address] Cholesterol in LDL [Mass/Vol] 49 mg/dL Normal 0-130 [facility] Comment on above: Order Comment: N Performed By: #### L 100.0100, L500.4050, L500.4100, L501.2300, L501.5200, L506.0250 ####[facility] [address] [place], [address] Cholesterol in VLDL [Mass/Vol] 41 mg/dL High 5-40 [facility] Comment on above: Order Comment: N Performed By: #### L 100.0100, L500.4050, L500.4100, L501.2300, L501.5200, L506.0250 ####[facility] [address] [place], [address] Triglyceride [Mass/Vol] 205 mg/dL High [facility] Comment on above: Order Comment: N Result Comment: The drugs N-Acetylcysteine and Metamizole may falsely depress this assay. Serum Triglycerides Reference Interval Normal <150 mg/dL Borderline high 150 - 199 mg/dL High 200 - 499 mg/dL Very High > or = 500 mg/dL Performed By: #### L 100.0100, L500.4050, L500.4100, L501.2300, L501.5200, L506.0250 ####[facility] [address] [place], [address] CHOL Normal 200 [facility] Comment on above: Order Comment: Has P atient had X-rays with Contrast this admission? [place] Result Comment: MOVE D TO DIFFERENT REQ Performed By: #### L 500.4100, L501.9985, L505.5000, L503.0105 ####[facility] [address] [place], [address] HDL Normal [facility] Comment on above: Order Comment: Has Slim mariee had X-rays with Contrast this admission? [place] Result Comment: MOVE D TO DIFFERENT REQ Performed By: #### L 500.4100, L501.9985, L505.5000, L503.0105 ####[facility] [address] [place], [address] LDL Normal 0-130 [facility] Comment on above: Order Comment: Has Slim mariee had X-rays with Contrast this admission? [place] Result Comment: MOVE D TO DIFFERENT REQ Performed By: #### L 500.4100, L501.9985, L505.5000, L503.0105 ####[facility] [address] [place], [address] TRIG Normal [facility] Comment on above: Order Comment: Has lSim mariee had X-rays with Contrast this admission? [place] Result Comment: MOVE D TO DIFFERENT REQ Performed By: #### L 500.4100, L501.9985, L505.5000, L503.0105 ####[facility] [address] [place], [address] VLDL Normal 5-40 [facility] Comment on above: Order Comment: Has Slim mariee had X-rays with Contrast this admission? [place] Result Comment: MOVE D TO DIFFERENT REQ Performed By: #### L 500.4100, L501.9985, L505.5000, L503.0105 ####[facility] [address] [place], [address] MR/CON.PCM.NEon 06-28-2024 MR/CON.PCM.NE [facility] Medical Records Department [address] [place] [address] Consultation - Neurology 06/28/24 1125 MR#: [id number] Acct: [id number] Name: AFSHIN ZEE Rep #: [id number] : 1955 68 From: Leta Luciano MD PCP: Dr. Jaci Arroyo MD Status:ADM JUMANA Location: [place] [address] Assessment and Plan: Neuro Assessment/Plan AFSHIN ZEE is a 68 M with a past medical history of left hemispheric stroke with resultant right sided weakness being evaluated by Teleneurology for episodes of confusion, difficulty with coordination after starting Keppra 3 days ago. Patient had abnormal EEG done in the past that showed left hemispheric IEA and episodes of staring events associated with confusion concerning for seizures. It is reasonable to switch him to Vimpat 100 mg BID and wean down Keppra slowly. Please decrease dose of Keppra to 250 mg BID for a week followed by 250 mg nightly for a week followed by discontinuation thereafter. Please perform EKG to look for SC interval ,if normal start Vimpat 100 mg BID. Perform routine EEG. Ct head w/o contrast with no acute findings. Exam is baseline. F/P with neurologist in 6 weeks. I personally attended this patient and spent a total time of 55 minutes evaluating this patient including clinical assessment, review of chart, medical history imaging, and determining appropriate treatment and workup. 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 (2017); with subsequent aphasia, previous g-tube placement plus tracheostomy with suspected oropharyngeal dysphagia causing suspected silent aspiration with recurrent episodes of pneumonia and chronic debility with Right facial droop and RUE paresis with patient able to ambulate with cane, history of cerebral artery aneurysm, history of carotid artery disease, history of stenosis of the Left subclavian artery, history of mass of RUL, history of sepsis, history of pneumonia, history of PTX, history of bimalleolar fracture of the Right ankle, listed allergy to azithromycin (hives), listed allergy to sulfonamide antibiotics (hives), listed allergy to lisinopril (hives diarrhea), history of depression with anxiety; on trazodone, buspirone, escitalopram and prn lorazepam q. 8 hours, JENN, history of GERD; on pepcid, OA; on hydrocodone-APAP q. 6 hours prn, recently diagnosed RLL Pneumonia with Leukocytosis of 14.3K and Hypoxia in ER here June 26, 2024 treated with oral Doxycycline and currently on 6L NC at night in addition to recently diagnosed Epilepsy with Absence Seizures followed by protracted postictal periods after positive EEG that revealed epileptiform discharges with patient subsequently started on Keppra 500 mg PO BID by his new neurologist, Dr. Aj, who presents to [facility] ER with his complaining of he has been intermittently confused since starting this new AED. On my evaluation, patient did not appear confused and was able to follow commands . noticed that his left eye was not normal and patient was more unsteady at baseline since starting Keppra.She was also worried about a new stroke and brought in for further evaluation [facility] Medical History Closed right ankle fracture Wears dentures Wears glasses History of Clostridium difficile infection Anxiety Bruising Ambulates with cane Easy bruising Gastric reflux Former smoker CPAP (continuous positive airway pressure) dependence History of echocardiogram Cardiology follow-up encounter History of atrial fibrillation Bimalleolar fracture of right ankle Hypoxia History of stroke History of stroke 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 tract infection Respiratory failure Hyperlipidemia HTN (hypertension) Left acute arterial ischemic stroke, MCA (middle cerebral artery) (10/31/16) Sepsis Cerebral arterial aneurysm Carotid artery disease Smoker Home Medications ???Medication ???Instructions ???Recorded ???Last Taken ???Type famotidine 20 mg tablet 20 mg PO QHS PRN PRN Gastric Reflux 12/21/16 08/15/22 History baclofen 10 mg tablet 5 mg (1/2 x 10 mg) PO TID (more content not included)... Normal [facility] Magnesiumon 06-28-2024 Magnesium [Mass/Vol] 2.1 mg/dL Normal 1.6-2.6 [facility] Comment on above: Order Comment: N Performed By: #### L 100.0100, L500.4050, L500.4100, L501.2300, L501.5200, L506.0250 ####[facility] [address] [place], [address] Phosphoruson 06-28-2024 Phosphate [Mass/Vol] 3.4 mg/dL Normal 2.5-4.9 [facility] Comment on above: Order Comment: N Performed By: #### L 100.0100, L500.4050, L500.4100, L501.2300, L501.5200, L506.0250 ####[facility] [address] [place], [address] Strep pneumoniae Antig(UR,CS F)on 06-28-2024 STPAG URINE, CLEAN CATCH URINE INTERPRETATION Strep pneumoniae Antig(UR,CSF) Strep pneumoniae Antig(UR,CSF) Negative Urine Presumptive negative for pneumococcal pneumonia, suggesting no current or recent pneumococcal infection. Infection due to S pneumoniae cannot be ruled out since the antigen present in the sample may be below the detection limit of the test. Strep pneumo Test Negative URINE (See interpretation below) Normal [facility] Comment on above: Performed By: #### M 300.4500, M300.4600 ####[facility] [address] [place], [address] Urine Drug Screen (VISTA)on 06-28-2024 AMPHETAMINES Negative Normal <1000 ng/mL [facility] Comment on above: Order Comment: UNK Performed By: #### L 500.4100, L501.9985, L505.5000, L503.0105 ####[facility] [address] [place], [address] BARBITIURATES Negative Normal < 200 ng/mL [facility] Comment on above: Order Comment: UNK Performed By: #### L 500.4100, L501.9985, L505.5000, L503.0105 ####[facility] [address] [place], [address] BENZODIAZIPINE Negative Normal < 200 ng/mL [facility] Comment on above: Order Comment: UNK Performed By: #### L 500.4100, L501.9985, L505.5000, L503.0105 ####[facility] [address] [place], [address] COCAINE Negative Normal < 300 ng/mL [facility] Comment on above: Order Comment: UNK Performed By: #### L 500.4100, L501.9985, L505.5000, L503.0105 ####[facility] [address] [place], [address] ECSTACY Positive Abnormal < 500 ng/mL [facility] Comment on above: Order Comment: UNK Performed By: #### L 500.4100, L501.9985, L505.5000, L503.0105 ####[facility] [address] [place], [address] METHADONE Negative Normal < 300 ng/mL [facility] Comment on above: Order Comment: UNK Performed By: #### L 500.4100, L501.9985, L505.5000, L503.0105 ####[facility] [address] [place], [address] OPIATES Negative Normal < 300 ng/mL [facility] Comment on above: Order Comment: UNK Performed By: #### L 500.4100, L501.9985, L505.5000, L503.0105 ####[facility] [address] [place], [address] PCP Negative Normal < 25 ng/mL [facility] Comment on above: Order Comment: UNK Performed By: #### L 500.4100, L501.9985, L505.5000, L503.0105 ####[facility] [address] [place], [address] THC Positive Abnormal < 50 ng/mL [facility] Comment on above: Order Comment: UNK Performed By: #### L 500.4100, L501.9985, L505.5000, L503.0105 ####[facility] [address] [place], [address] VISTA UDS PH 4 Normal [facility] Comment on above: Order Comment: UNK Performed By: #### L 500.4100, L501.9985, L505.5000, L503.0105 ####[facility] [address] [place], [address] 12 Lead EKGon 06-27-2024 12 Lead EKG [facility] Cardiovascular Services [address] [place] [address] 12 Lead EKG 06/27/24 2217 MR#: [id number] Acct: [id number] Name: AFSHIN ZEE Rep #: [id number] : 1955 68 From: Lissa Michel MD Attending Dr: Dr. Dov Marin, Status: DIS JUMANA Ordering Dr: Carlton Lin DO Date: 06/27/24 Location: U Sex: M C Admitted: 06/28/24 Test Reason : CONFUSION Blood Pressure : */* mmHG Vent. Rate : 48 BPM Atrial Rate : 48 BPM P-R Int : 226 ms QRS Dur : 92 ms QT Int : 414 ms P-R-T Axes : -4 -38 90 degrees QTcB Int : 369 ms Sinus bradycardia with 1st degree A-V block Left axis deviation Cannot rule out Inferior infarct , age undetermined Abnormal ECG Confirmed by Lissa Michel ([id number]), copy editor KHRIS HPOKINS ([id number]) on 06/30/2024 10:26:37 AM Referred By: Confirmed By: Lissa Michel 06/30/24 1026 Date Lissa Michel MD CC: Dr. Dov Marin DO; Dr. Jaci Arroyo MD; Dr. Carlton Lin DO Signed Normal [facility] Basic Metabolic Profile (BMP )on 06-27-2024 BUN/CRE 14.3 RATIO Normal 10-20 [facility] Comment on above: Performed By: #### L 500.2500, L300.3900, L300.4310, L100.0100 #### [facility] [address] [place], [address] CA,Total 8.9 mg/dL Normal 8.5-10.1 [facility] Comment on above: Performed By: #### L 500.2500, L300.3900, L300.4310, L100.0100 #### [facility] [address] [place], [address] Chloride [Moles/Vol] 112 mmol/L High 98-107 [facility] Comment on above: Performed By: #### L 500.2500, L300.3900, L300.4310, L100.0100 #### [facility] [address] [place], [address] CO2 [Moles/Vol] 28.0 mmol/L Normal 21.0-32.0 [facility] Comment on above: Performed By: #### L 500.2500, L300.3900, L300.4310, L100.0100 #### [facility] [address] [place], [address] Creatinine [Mass/Vol] 1.19 mg/dL Normal 0.70-1.30 [facility] Comment on above: Result Comment: The validity of the calculated GFR GFRAA in patients over 70 years has not been determined. Clinical correlation is essential. Performed By: #### L 500.2500, L300.3900, L300.4310, L100.0100 #### [facility] [address] [place], [address] ECRCL 67.19 ml/min Normal [facility] Comment on above: Performed By: #### L 500.2500, L300.3900, L300.4310, L100.0100 #### [facility] [address] [place], [address] EST GFR - AA 78 mL/min Normal >60 [facility] Comment on above: Result Comment: Afri can Ghanaian GFR Calc Performed By: #### L 500.2500, L300.3900, L300.4310, L100.0100 #### [facility] [address] [place], [address] GAP 4 Low 5-15 [facility] Comment on above: Performed By: #### L 500.2500, L300.3900, L300.4310, L100.0100 #### [facility] [address] [place], [address] GFR/1.73 sq M.predicted among non-blacks MDRD (S/P/Bld) [Vol rate/Area] 64 mL/min/{1.73_m2} Normal >60 [facility] Comment on above: Result Comment: Non- GFR Calc Performed By: #### L 500.2500, L300.3900, L300.4310, L100.0100 #### [facility] [address] [place], [address] Glucose [Mass/Vol] 127 mg/dL High 74-106 [facility] Comment on above: Result Comment: Fast ing Glucose result greater than or equal to 126 mg/dL suggests DIABETES MELLITUS per A.D.A. criteria. Performed By: #### L 500.2500, L300.3900, L300.4310, L100.0100 #### [facility] [address] [place], [address] Potassium [Moles/Vol] 4.0 mmol/L Normal 3.5-5.1 [facility] Comment on above: Performed By: #### L 500.2500, L300.3900, L300.4310, L100.0100 #### [facility] [address] [place], [address] Sodium [Moles/Vol] 144 mmol/L Normal 136-145 [facility] Comment on above: Performed By: #### L 500.2500, L300.3900, L300.4310, L100.0100 #### [facility] [address] [place], [address] Urea nitrogen [Mass/Vol] 17 mg/dL Normal 7-18 [facility] Comment on above: Performed By: #### L 500.2500, L300.3900, L300.4310, L100.0100 #### [facility] [address] [place], [address] Brain/Head without Contrasto n 06-27-2024 Brain/Head without Contrast [facility] Imaging Services [address] [place] [address] Brain/Head without Contrast MR#: [id number] Acct: [id number] Name: AFSHIN ZEE Rep #: [id number] : 1955 M 68 From: Jonel Soto DO PCP: Dr. Jaci Arroyo MD Status: REG ER Study: Brain/Head without Contrast Date of Exam: 06/06 10/26 Exam# [id number] Ordering Dr: Carlton Lin DO [id number] STUDY: CT BRAIN WITHOUT CONTRAST REASON FOR EXAM: Male, 68 years old. confusion RADIATION DOSAGE (If Supplied By Facility): CTDIvol = ( 44.99 ) mGy, DLP = ( 796.11 ) mGycm TECHNIQUE: Transaxial CT imaging of the brain was performed without administration of intravenous contrast material. Individualized dose optimization techniques were used for this CT. COMPARISON: No relevant priors. FINDINGS: Normal soft tissue structures. Normal calvarium. Prominent ventricles and extra-axial spaces with atrophy. Left cerebral encephalomalacia. Mild white matter microangiopathic ischemic changes of the cerebral hemispheres. Old infarct in the left basal ganglia. Normal thalami. Normal brainstem. Normal cerebellum. There is no intracranial hemorrhage. There are no findings of an acute ischemic infarction. Normal visualized paranasal sinuses. CT/Brain/Head without Contrast IMPRESSION: Chronic changes of the brain. No acute intracranial pathology. Electronically Signed: Jonel Soto DO at 22:47 EST Reading Location ID and State: [address] [place] [address] Tel [phone], Service support , CC: Dr. Jaci Arroyo MD; Dr. Carlton Lin DO Food Service Utility Worker: Signed Normal [facility] CBC W/Diff, Automatedon 11-2 Absolute Lymph 2.05 X10 3/uL Normal 0.83-4.51 [facility] Comment on above: Performed By: #### L 500.2500, L300.3900, L300.4310, L100.0100 #### [facility] [address] [place], [place], [id number] Absolute Neut 5.4 X10 3/uL Normal 2.0-7.7 [facility] Comment on above: Performed By: #### L 500.2500, L300.3900, L300.4310, L100.0100 #### [facility] [address] [place], [place], [id number] (393) Basophils/100 WBC (Bld) 1.0 % Normal 0-1 [facility] Comment on above: Performed By: #### L 500.2500, L300.3900, L300.4310, L100.0100 #### [facility] [address] [place], [address] Eosinophils/100 WBC (Bld) 7.0 % High 0-5 [facility] Comment on above: Performed By: #### L 500.2500, L300.3900, L300.4310, L100.0100 #### [facility] [address] [place], [address] Erythrocyte distribution width (RBC) [Ratio] 12.5 % Normal 11.6-14.6 [facility] Comment on above: Performed By: #### L 500.2500, L300.3900, L300.4310, L100.0100 #### [facility] [address] [place], [address] Hematocrit (Bld) [Volume fraction] 40.6 % Normal 40-54 [facility] Comment on above: Performed By: #### L 500.2500, L300.3900, L300.4310, L100.0100 #### [facility] [address] [place], [address] Hemoglobin (Bld) [Mass/Vol] 13.5 g/dL Normal 13.0-16.5 [facility] Comment on above: Performed By: #### L 500.2500, L300.3900, L300.4310, L100.0100 #### [facility] [address] [place], [address] IG% 1.200 High 0.0-0.9 [facility] Comment on above: Result Comment: IG% - Immature Granulocytes (promyelocytes, myelocytes and metamyelocytes) > 1% indicates that a LEFT SHIFT is Present. Performed By: #### L 500.2500, L300.3900, L300.4310, L100.0100 #### [facility] [address] [place], [address] Lymphocytes/100 WBC (Bld) 22.4 % Normal 19-41 [facility] Comment on above: Performed By: #### L 500.2500, L300.3900, L300.4310, L100.0100 #### [facility] [address] [place], [address] MCH (RBC) [Entitic mass] 30.8 pg Normal 27.0-32.0 [facility] Comment on above: Performed By: #### L 500.2500, L300.3900, L300.4310, L100.0100 #### [facility] [address] [place], [address] MCHC (RBC) [Mass/Vol] 33.3 g/dL Normal 32-36 [facility] Comment on above: Performed By: #### L 500.2500, L300.3900, L300.4310, L100.0100 #### [facility] [address] [place], [address] MCV (RBC) [Entitic vol] 92.7 fL Normal 80-94 [facility] Comment on above: Performed By: #### L 500.2500, L300.3900, L300.4310, L100.0100 #### [facility] [address] [place], [address] Monocytes/100 WBC (Bld) 10.1 % High 0-10 [facility] Comment on above: Performed By: #### L 500.2500, L300.3900, L300.4310, L100.0100 #### [facility] [address] [place], [address] Neutrophils/100 WBC (Bld) 58.3 % Normal 47-70 [facility] Comment on above: Performed By: #### L 500.2500, L300.3900, L300.4310, L100.0100 #### [facility] [address] [place], [address] Nucleated RBC (Bld) [#/Vol] 0 10*3/uL Normal 0-5 [facility] Comment on above: Performed By: #### L 500.2500, L300.3900, L300.4310, L100.0100 #### [facility] [address] [place], [address] Platelet mean volume (Bld) [Entitic vol] 11.2 fL Normal 6.2-12.0 [facility] Comment on above: Performed By: #### L 500.2500, L300.3900, L300.4310, L100.0100 #### [facility] [address] [place], [address] Platelets (Bld) [#/Vol] 218 10*3/uL Normal 150-450 [facility] Comment on above: Performed By: #### L 500.2500, L300.3900, L300.4310, L100.0100 #### [facility] [address] [place], [address] RBC (Bld) [#/Vol] 4.38 10*6/uL Low 4.6-6.2 [facility] Comment on above: Performed By: #### L 500.2500, L300.3900, L300.4310, L100.0100 #### [facility] [address] [place], [address] RDW SD 42.7 fl Normal 35.1-43.9 [facility] Comment on above: Performed By: #### L 500.2500, L300.3900, L300.4310, L100.0100 #### [facility] [address] [place], [address] WBC (Bld) [#/Vol] 9.2 10*3/uL Normal 4.4-11.0 [facility] Comment on above: Performed By: #### L 500.2500, L300.3900, L300.4310, L100.0100 #### [facility] [address] [place], [address] Chest 1 View (Portable)on Chest 1 View (Portable) [facility] Imaging Services [address] [place] [address] Chest 1 View (Portable) MR#: [id number] Acct: [id number] Name: AFSHIN ZEE Rep #: [id number] : 1955 M 68 From: Jonel Soto DO PCP: Dr. Jaci Arroyo MD Status: REG ER Study: Chest 1 View (Portable) Date of Exam: 06/27/24 Exam# [id number] Ordering Dr: Carlton Lin DO [id number] INDICATION: cough EXAMINATION/TECHNIQUE: X-RAY - XR Chest 1 View COMPARISON: June 26, 2024 FINDINGS: LINES/DEVICES: Stable sternotomy wires. LUNGS: Prominent right basilar interstitial markings and mild infiltrate. No pneumothorax. MEDIASTINUM AND CARDIOVASCULAR STRUCTURES: Cardiac silhouette not enlarged. There is central pulmonary vascular prominence. Central airways and mediastinal contour are unremarkable. BONES AND SOFT TISSUES: Degenerative vertebral changes. RAD/Chest 1 View (Portable) IMPRESSION: Central pulmonary vascular prominence. Prominent right basilar interstitial markings and mild infiltrate. Electronically Signed: Jonel Soto DO at 23:53 EST , CC: Dr. Jaci Arroyo MD; Dr. Carlton Lin DO Food Service Utility Worker: Signed Normal [facility] Emergency Department Summary on 06-27-2024 Emergency Department Summary [facility] Medical Records Department [address] [place] [address] Emergency Department Summary 06/27/24 MR#: [id number] Acct: [id number] Name: AFSHIN ZEE Rep #: [id number] : 1955 68 From: Carlton [place] PCP: Dr. Jaci Arroyo MD Status:[place] JUMANA Location: [place] [address] HPI History of Present Illness Chief Complaint: Neuro S/Sx Informant: spouse/S.O. Narrative Narrative: Referred in here by patient's PCP after spouse called. Patient history of CVA 2017 from ruptured aneurysm with stenting. Residual right-sided deficits with facial droop right arm paralysis. He does have some function of his leg since his stroke. He stands and pivots. He was seen yesterday due to a cough for few days diagnosed with pneumonia and is on antibiotics. He wears oxygen of 6 L at night. Spouse states yesterday evening patient went to the restroom almost fell had a period of confusion for few minutes did not recognize her. There was recurrent episodes today. Further discussion spouse states saw a new neurologist recently Dr. Aj. He had an EEG performed at this facility had concerning findings started on Keppra 500 mg twice a day over last 3 days. No clinical seizure symptoms stimulated the workup. Per spouse neurologist wanted it checked. Patient today had multiple confusion episodes did not know where to put his oxygen. Spouse states was told by PCP that Keppra can lead to strokes. Prior similar symptoms: No PFSH PFSH Medical History Closed right ankle fracture Wears dentures Wears glasses History of Clostridium difficile infection Anxiety Bruising Ambulates with cane Easy bruising Gastric reflux Former smoker CPAP (continuous positive airway pressure) dependence History of echocardiogram Cardiology follow-up encounter History of atrial fibrillation Bimalleolar fracture of right ankle Hypoxia History of stroke History of stroke Stroke/cerebrovascular accident longterm current use of amiodarone Chronic atrial fibrillation Atherosclerosis of coronary artery without angina pectoris Confusion Mixed obstructive and restrictive ventilatory defect Aphasia as late effect of stroke Debility Dysphagia Anemia Lower resp. tract infection Respiratory failure Hyperlipidemia HTN (hypertension) Left acute arterial ischemic stroke, MCA (middle cerebral artery) (10/31/16) Sepsis Cerebral arterial aneurysm Carotid artery disease Smoker Home Medications ???Medication ???Instructions ???Recorded ???Last Taken ???Type famotidine 20 mg tablet 20 mg PO QHS PRN PRN Gastric Reflux 12/21/16 08/15/22 History baclofen 10 mg tablet 5 mg (1/2 x 10 mg) PO TID 02/05/17 08/07/23 09:00 Rx multivitamin,tx-iron-m inerals 1 tab PO DAILY vitamin 12/04/18 08/06/23 History (Complete Multivitamin tablet) potassium chloride 10 mEq 20 meq (2 x 10 mEq) PO TID 04/19/20 08/06/23 Rx tablet,extended release potassium #90 tabs ezetimibe 10 mg tablet 10 mg PO DAILY 04/22/21 08/06/23 History escitalopram oxalate 20 mg tablet 20 mg PO DAILY antidepressant 06/11/21 08/06/23 History menthol 0.44 %-zinc oxide 20.6 % 1 applic topical TID PRN Diaper 06/17/21 Unknown Rx topical ointment (Calmoseptine) Rash #0 grams amiodarone 100 mg tablet 100 mg PO DAILY HEART 07/11/21 08/07/23 09:00 History albuterol sulfate 90 mcg/actuation 2 inh inhalation Q4H PRN shortness 05/29/22 08/07/23 Rx aerosol inhaler (Ventolin HFA) of breath or wheezing #18 grams IV poll #1 ea 08/07/22 Unknown Rx trazodone 50 mg tablet 100 mg PO QHS DEPRESSION 08/16/22 08/06/23 History miconazole nitrate 2 % topical 1 applic topical BID 14 days #15 08/17/22 Unknown Rx cream grams amlodipine 5 mg tablet 5 mg PO BID 11/11/22 08/07/23 09:00 History apixaban 5 mg tablet (Eliquis) 5 mg PO BID 11/11/22 08/05/23 History tiotropium 2.5 mcg-olodaterol 2.5 2 puff inhalation DAILY 05/29/23 08/06/23 History mcg/actuation mist for inhalation (Stiolto Respimat) albuterol sulfate 2.5 mg/3 mL 2.5 mg continuous nebulization Q6H 08/02/23 Unknown History (0.083 %) solution for nebulization PRN shortness of breath or wheezing atorvastatin 40 mg tablet 40 mg PO DAILY 08/02/23 08/06/23 History ferrous sulfate 325 mg (65 mg 325 mg PO BID 08/02/23 08/06/23 History iron) tablet (FeroSul) losartan 25 mg tablet 25 mg PO DAILY 08/02/23 08/07/23 09:00 History metoprolol tartrate 25 mg tablet 12.5 mg PO BID 08/02/23 08/07/23 09:00 History fluticasone propionate 50 2 spray intranasal DAILY #16 grams 12/02/23 Unknown Rx mcg/actuation nasal spray,suspension (Flonase Allergy Relief) buspirone 15 mg tablet 15 mg PO TID 04/08/24 Unknown History lorazepam 1 mg tablet (Ativan) 1 - 2 mg PO Q8H PRN agitation 04/08/24 Unknown History doxycycline hyclate 100 mg capsule 100 mg PO BID 7 days #14 caps 06/26/24 Unknown Rx (more content not included)... Normal [facility] H AND P Exam - Hospitaliston 06-27-2024 H&P Exam - Hospitalist [facility] Medical Records Department [address] [place] [address] H P Exam - Hospitalist 06/27/24 2351 MR#: [id number] Acct: [id number] Name: AFSHIN ZEE Rep #: [id number] : 1955 68 From: Robin Rodriguez DO PCP: Dr. Jaci Arroyo MD Status:AD[place] JUMANA Location: [place] [address] HPI - General General Date of Admission: 06/28/24 Date of Service: 06/27/24 Chief Complaint: Intermittent Confusion after recently being started on Keppra for + EEG. HPI Narrative AFSHIN ZEE, is a 68 M with a past medical history of essential hypertension; on amlodipine, losartan and metoprolol, hyperlipidemia; on atorvastatin and ezetimibe, overweight; with BMI of 28.6 this admission, DARON; noncompliant with CPAP, history of tobacco abuse (quit 2015 and 2020), chronic atrial fibrillation; on amiodarone and apixaban, CAD; s/p CABG x 5 (2016), history of ischemic Left MCA CVA as a post-CABG complication (2016); with subsequent aphasia, previous g-tube placement plus tracheostomy (both long removed) with suspected oropharyngeal dysphagia causing suspected silent aspiration with recurrent episodes of pneumonia and chronic debility with Right facial droop and RUE paresis with patient able to ambulate with cane, history of cerebral artery aneurysm, history of carotid artery disease, history of stenosis of the Left subclavian artery, history of mass of RUL, history of sepsis, history of pneumonia, history of PTX, history of bimalleolar fracture of the Right ankle, listed allergy to azithromycin (hives), listed allergy to sulfonamide antibiotics (hives), listed allergy to lisinopril (hives diarrhea), history of depression with anxiety; on trazodone, buspirone, escitalopram and prn lorazepam q. 8 hours, JENN, history of GERD; on pepcid, OA; on hydrocodone-APAP q. 6 hours prn, recently diagnosed RLL Pneumonia with Leukocytosis of 14.3K and Hypoxia in ER here June 26, 2024 treated with oral Doxycycline and currently on 6L NC at night in addition to recently diagnosed Epilepsy with Absence Seizures followed by protracted postictal periods after positive EEG that revealed epileptiform discharges with patient subsequently started on Keppra 500 mg PO BID by his new neurologist, Dr. Aj, who presents to [facility] ER with his complaining of he has been intermittently confused since starting this new AED. Mr. Zee is not a reliable historian due to his aphasia so information was gathered from chart, medical staff, computer and his devoted who was present at the bedside. According to the records he was noted to become confused since starting Keppra three days ago and she is in strongly favor of stopping this agent and switching to an alternative after one of the patient's doctors allegedly informed her Keppra can cause strokes. She explained further that earlier today he almost fell in the bathroom followed by him not being able to recognize her for a few minutes which she states has been worse and not better since starting Keppra. Then there were additional similar episodes throughout the day with patient staring off into space and not responding to her - but she denies any overt tonic-clonic seizure activity. She also denies associated fever, chills, nausea, vomiting, diarrhea, constipation, SOB, recent trauma or other significant new issues other than the ones described above. In the ER he was diagnosed with suspected Adverse Drug Reaction to Keppra causing Intermittent Confusion in the setting of preexisting Polypharmacy with patient simultaneously on numerous DIRECTOR OF ENV[employer]ONMENTAL SERVICES-active agents, including opiates, benzodiazepines and multiple antidepressants in this chronically ill patient with a history of multiple CVA's which are suspected to be the underlying etiology of his recently diagnosed Epilepsy with Absence Seizures with prolonged postictal confusion and he was then admitted to the PCU under observation status for ongoing care for a stay that is expected to extend beyond 2 midnights. PFSH Medical History Closed right ankle fracture Wears dentures Wears glasses History of Clostridium difficile infection Anxiety Bruising Ambulates with cane Easy bruising Gastric reflux Former smoker CPAP (continuous positive airway pressure) dependence History of echocardiogram Cardiology follow-up encounter History of atrial fibrillation Bimalleolar fracture of right ankle Hypoxia History of stroke History of stroke Stroke/cerebrovascular accident longterm current use of amiodarone Chronic atrial fibrillation Atherosclerosis of coronary artery without angina pectoris Confusion Mixed obstructive and restrictive ventilatory defect Aphasia as late effect of stroke Debility Dysphagia Anemia Lower resp. tract infection Respiratory failure Hyperlipidemia HTN (hypertension) Left acute arterial ischemic stroke, (more content not included)... Normal [facility] Partial Thromboplast Timeon 06-27-2024 aPTT Coag (Bld) [Time] 29.0 s Normal 24.1-36.2 [facility] Comment on above: Performed By: #### L 500.2500, L300.3900, L300.4310, L100.0100 #### [facility] [address] [facility] [place], [place], [id number] ([address] Prothrombin Time w/INRon INR Coag (PPP) [Relative time] 1.1 {INR} Normal [facility] Comment on above: Performed By: #### L 500.2500, L300.3900, L300.4310, L100.0100 #### [facility] [address] [place], [address] PT Coag (PPP) [Time] 14.0 s Normal 11.7-14.9 [facility] Comment on above: Performed By: #### L 500.2500, L300.3900, L300.4310, L100.0100 #### [facility] [address] [place], [address] Urinalysis, Completeon 06-27 YEAST RARE Normal None Seen [facility] Comment on above: Order Comment: CLEAN CATCH Performed By: #### L 500.2500, L300.3900, L300.4310, L100.0100 #### [facility] [address] [place], [address] WBC 0-5 SEEN Normal 0-5 [facility] Comment on above: Order Comment: CLEAN CATCH Performed By: #### L 500.2500, L300.3900, L300.4310, L100.0100 #### [facility] [address] [place], [address] BACTERIA 0 SEEN Normal None Seen [facility] Comment on above: Order Comment: CLEAN CATCH Performed By: #### L 500.2500, L300.3900, L300.4310, L100.0100 #### [facility] [address] [place], [address] EPI,SQUAMOUS 0 SEEN Normal 0-5 [facility] Comment on above: Order Comment: CLEAN CATCH Performed By: #### L 500.2500, L300.3900, L300.4310, L100.0100 #### [facility] [address] [place], [address] Mucus Ql (Urine sed) 0 SEEN Normal [facility] Comment on above: Order Comment: CLEAN CATCH Performed By: #### L 500.2500, L300.3900, L300.4310, L100.0100 #### [facility] [address] [place], [address] RBC 0 SEEN Normal 0-5 [facility] Comment on above: Order Comment: CLEAN CATCH Performed By: #### L 500.2500, L300.3900, L300.4310, L100.0100 #### [facility] [address] [place], [address] 12 Lead EKGon 06-26-2024 12 Lead EKG [facility] Cardiovascular Services [address] [place] [address] 12 Lead EKG 06/26/24 1341 MR#: [id number] Acct: [id number] Name: AFSHIN ZEE Rep #: [id number] : 1955 68 From: Lissa Michel MD Attending Dr: Status: DEP ER Ordering Dr: Ricardo Wilburn Date: 06/26/24 Location: ED Sex: M C Admitted: Test Reason : SOB Blood Pressure : */* mmHG Vent. Rate : 59 BPM Atrial Rate : 254 BPM P-R Int : * ms QRS Dur : 84 ms QT Int : 476 ms P-R-T Axes : 97 -42 89 degrees QTcB Int : 471 ms Atrial flutter with variable A-V block Left axis deviation Cannot rule out Inferior infarct , age undetermined Abnormal ECG Confirmed by Lissa Michel ([id number]), copy editor KHRIS HOPKINS ([id number]) on 06/29/2024 6:21:46 AM Referred By: AR Confirmed By: Lissa Michel 06/29/24 0621 Date Lissa Michel MD CC: Dr. Jaci Arroyo MD; Dr. Jasen Dhillon MD; YAW Benz Signed Normal [facility] Basic Metabolic Profile (BMP )on 06-26-2024 BUN/CRE 13.0 RATIO Normal -20 [facility] Comment on above: Performed By: #### L 100.0100, L500.2500 ####[facility] [address] [place], [address] CA,Total 8.9 mg/dL Normal 8.5-10.1 [facility] Comment on above: Performed By: #### L 100.0100, L500.2500 ####[facility] [address] [place], [address] Chloride [Moles/Vol] 111 mmol/L High 98-107 [facility] Comment on above: Performed By: #### L 100.0100, L500.2500 ####[facility] [address] [place], [address] CO2 [Moles/Vol] 29.0 mmol/L Normal 21.0-32.0 [facility] Comment on above: Performed By: #### L 100.0100, L500.2500 ####[facility] [address] [place], [address] Creatinine [Mass/Vol] 1.23 mg/dL Normal 0.70-1.30 [facility] Comment on above: Result Comment: The validity of the calculated GFR GFRAA in patients over 70 years has not been determined. Clinical correlation is essential. Performed By: #### L 100.0100, L500.2500 ####[facility] [address] [place], [address] EST GFR - AA 75 mL/min Normal >60 [facility] Comment on above: Result Comment: Afri can Ghanaian GFR Calc Performed By: #### L 100.0100, L500.2500 ####[facility] [address] [place], [address] GAP 2 Low 5-15 [facility] Comment on above: Performed By: #### L 100.0100, L500.2500 ####[facility] [address] [place], [address] GFR/1.73 sq M.predicted among non-blacks MDRD (S/P/Bld) [Vol rate/Area] 62 mL/min/{1.73_m2} Normal >60 [facility] Comment on above: Result Comment: Non- GFR Calc Performed By: #### L 100.0100, L500.2500 ####[facility] [address] [place], [address] Glucose [Mass/Vol] 110 mg/dL High 74-106 [facility] Comment on above: Result Comment: Fast ing Glucose result from 100 to 125 mg/dL suggests IMPAIRED HOMEOSTASIS per A.D.A. criteria. Performed By: #### L 100.0100, L500.2500 ####[facility] [address] [place], [address] Potassium [Moles/Vol] 4.3 mmol/L Normal 3.5-5.1 [facility] Comment on above: Performed By: #### L 100.0100, L500.2500 ####[facility] [address] [place], [address] Sodium [Moles/Vol] 142 mmol/L Normal 136-145 [facility] Comment on above: Performed By: #### L 100.0100, L500.2500 ####[facility] [address] [place], [address] Urea nitrogen [Mass/Vol] 16 mg/dL Normal 7-18 [facility] Comment on above: Performed By: #### L 100.0100, L500.2500 ####[facility] [address] [place], [address] CBC W/Diff, Automatedon 11- Absolute Lymph 2.17 X10 3/uL Normal 0.83-4.51 [facility] Comment on above: Performed By: #### L 100.0100, L500.2500 ####[facility] [address] [place], [address] Absolute Neut 9.7 X10 3/uL High 2.0-7.7 [facility] Comment on above: Performed By: #### L 100.0100, L500.2500 ####[facility] [address] [place], [address] Basophils/100 WBC (Bld) 0.6 % Normal 0-1 [facility] Comment on above: Performed By: #### L 100.0100, L500.2500 ####[facility] [address] [place], [address] Eosinophils/100 WBC (Bld) 6.1 % High 0-5 [facility] Comment on above: Performed By: #### L 100.0100, L500.2500 ####[facility] [address] [place], [address] Erythrocyte distribution width (RBC) [Ratio] 12.7 % Normal 11.6-14.6 [facility] Comment on above: Performed By: #### L 100.0100, L500.2500 ####[facility] [address] [place], [address] Hematocrit (Bld) [Volume fraction] 41.5 % Normal 40-54 [facility] Comment on above: Performed By: #### L 100.0100, L500.2500 ####[facility] [address] [place], [address] Hemoglobin (Bld) [Mass/Vol] 13.7 g/dL Normal 13.0-16.5 [facility] Comment on above: Performed By: #### L 100.0100, L500.2500 ####[facility] [address] [place], [address] IG% 0.900 Normal 0.0-0.9 [facility] Comment on above: Result Comment: IG% - Immature Granulocytes (promyelocytes, myelocytes and metamyelocytes) > 1% indicates that a LEFT SHIFT is Present. Performed By: #### L 100.0100, L500.2500 ####[facility] [address] [place], [address] Lymphocytes/100 WBC (Bld) 15.2 % Low 19-41 [facility] Comment on above: Performed By: #### L 100.0100, L500.2500 ####[facility] [address] [place], [address] MCH (RBC) [Entitic mass] 30.8 pg Normal 27.0-32.0 [facility] Comment on above: Performed By: #### L 100.0100, L500.2500 ####[facility] [address] [place], [address] MCHC (RBC) [Mass/Vol] 33.0 g/dL Normal 32-36 [facility] Comment on above: Performed By: #### L 100.0100, L500.2500 ####[facility] [address] [place], [address] MCV (RBC) [Entitic vol] 93.3 fL Normal 80-94 [facility] Comment on above: Performed By: #### L 100.0100, L500.2500 ####[facility] [address] [place], [address] Monocytes/100 WBC (Bld) 9.2 % Normal 0-10 [facility] Comment on above: Performed By: #### L 100.0100, L500.2500 ####[facility] [address] [place], [address] Neutrophils/100 WBC (Bld) 68.0 % Normal 47-70 [facility] Comment on above: Performed By: #### L 100.0100, L500.2500 ####[facility] [address] [place], [address] Nucleated RBC (Bld) [#/Vol] 0 10*3/uL Normal 0-5 [facility] Comment on above: Performed By: #### L 100.0100, L500.2500 ####[facility] [address] [place], [address] Platelet mean volume (Bld) [Entitic vol] 10.9 fL Normal 6.2-12.0 [facility] Comment on above: Performed By: #### L 100.0100, L500.2500 ####[facility] [address] [place], [address] Platelets (Bld) [#/Vol] 216 10*3/uL Normal 150-450 [facility] Comment on above: Performed By: #### L 100.0100, L500.2500 ####[facility] [address] [place], [address] RBC (Bld) [#/Vol] 4.45 10*6/uL Low 4.6-6.2 [facility] Comment on above: Performed By: #### L 100.0100, L500.2500 ####[facility] [address] [place], [address] RDW SD 43.2 fl Normal 35.1-43.9 [facility] Comment on above: Performed By: #### L 100.0100, L500.2500 ####[facility] [address] [place], [address] WBC (Bld) [#/Vol] 14.3 10*3/uL High 4.4-11.0 [facility] Comment on above: Performed By: #### L 100.0100, L500.2500 ####[facility] [address] [place], [address] Chest 1 View (Portable)on Chest 1 View (Portable) [facility] Imaging Services [address] [place] [address] Chest 1 View (Portable) MR#: [id number] Acct: [id number] Name: AFSHIN ZEE Henri Rep #: [id number] : 1955 M 68 From: Juan R Quinn MD PCP: Dr. Jaci Arroyo MD Status: REG ER Study: Chest 1 View (Portable) Date of Exam: 06/26/24 Exam# [id number] Ordering Dr: Ricardo Wilburn [id number] EXAM: XR CHEST, 1 VIEW CLINICAL INDICATION: cough TECHNIQUE: Frontal view of the chest. COMPARISON: XR Chest dated 04/08/2024 FINDINGS: LUNGS AND PLEURAL SPACES: No consolidation or edema. No pneumothorax. No effusion. HEART: Normal heart size. Surgical changes of coronary artery bypass graft (CABG). MEDIASTINUM: No mediastinal or hilar mass. BONES/JOINTS: No acute abnormality. RAD/Chest 1 View (Portable) IMPRESSION: No acute findings in the chest. No interval change. Electronically Signed: Juan R Quinn MD at 13:59 EST , CC: Dr. 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 Jaci Arroyo MD Status:DEP ER Location: ED HPI History of Present Illness Chief Complaint: Shortness of Breath Narrative Narrative: 68-year-old male with PMH of HTN, HLD, asthma, CVA with aphasia presents with several days of a productive cough. His states his cough is worse at night he has gasping for air in bed. He stands to pivot but doesn't ambulate. No fever or chills, no nausea or vomiting. He has a remote smoking history. He uses his inhaler and nebulizer twice daily. 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 tract infection Respiratory failure Hyperlipidemia HTN (hypertension) Left acute arterial ischemic stroke, MCA (middle cerebral artery) (10/31/16) Sepsis Cerebral arterial aneurysm Carotid artery disease Smoker Home Medications ???Medication ???Instructions ???Recorded ???Last Taken ???Type famotidine 20 mg tablet 20 mg PO QHS PRN PRN Gastric Reflux 12/21/16 08/15/22 History baclofen 10 mg tablet 5 mg (1/2 x 10 mg) PO TID 02/05/17 08/07/23 09:00 Rx multivitamin,tx-iron-m inerals 1 tab PO DAILY vitamin 12/04/18 08/06/23 History (Complete Multivitamin tablet) potassium chloride 10 mEq 20 meq (2 x 10 mEq) PO TID 04/19/20 08/06/23 Rx tablet,extended release potassium #90 tabs ezetimibe 10 mg tablet 10 mg PO DAILY 04/22/21 08/06/23 History escitalopram oxalate 20 mg tablet 20 mg PO DAILY antidepressant 06/11/21 08/06/23 History menthol 0.44 %-zinc oxide 20.6 % 1 applic topical TID PRN Diaper 06/17/21 Unknown Rx topical ointment (Calmoseptine) Rash #0 grams amiodarone 100 mg tablet 100 mg PO DAILY HEART 07/11/21 08/07/23 09:00 History albuterol sulfate 90 mcg/actuation 2 inh inhalation Q4H PRN shortness 05/29/22 08/07/23 Rx aerosol inhaler (Ventolin HFA) of breath or wheezing #18 grams IV poll #1 ea 08/07/22 Unknown Rx trazodone 50 mg tablet 100 mg PO QHS DEPRESSION 08/16/22 08/06/23 History miconazole nitrate 2 % topical 1 applic topical BID 14 days #15 08/17/22 Unknown Rx cream grams amlodipine 5 mg tablet 5 mg PO BID 11/11/22 08/07/23 09:00 History apixaban 5 mg tablet (Eliquis) 5 mg PO BID 11/11/22 08/05/23 History clopidogrel 75 mg tablet (Plavix) 75 mg PO DAILY anti platelet 11/11/22 Unknown History tiotropium 2.5 mcg-olodaterol 2.5 2 puff inhalation DAILY 05/29/23 08/06/23 History mcg/actuation mist for inhalation (Stiolto Respimat) albuterol sulfate 2.5 mg/3 mL 2.5 mg continuous nebulization Q6H 08/02/23 Unknown History (0.083 %) solution for nebulization PRN shortness of breath or wheezing aspirin 81 mg capsule 81 mg PO DAILY 08/02/23 08/03/23 History atorvastatin 40 mg tablet 40 mg PO DAILY 08/02/23 08/06/23 History ferrous sulfate 325 mg (65 mg 325 mg PO DAILY 08/02/23 08/06/23 History iron) tablet (FeroSul) losartan 25 mg tablet 25 mg PO DAILY 08/02/23 08/07/23 09:00 History metoprolol tartrate 25 mg tablet 12.5 mg PO BID 08/02/23 08/07/23 09:00 History fluticasone propionate 50 2 spray intranasal DAILY #16 grams 12/02/23 Unknown Rx mcg/actuation nasal spray,suspension (Flonase Allergy Relief) buspirone 15 mg tablet 15 mg PO TID 04/08/24 Unknown History lorazepam 1 mg tablet (Ativan) 1 - 2 mg PO Q8H PRN agitation 04/08/24 Unknown History doxycycline hyclate 100 mg capsule 100 mg PO BID 7 days #14 caps 06/26/24 Unknown Rx Allergy/AdvReac Type Severity Reaction Status Date / Time azithromycin (From Zithromax Allergy Intermediate Hives Verified 06/26/24 13:14 Z-Sacha) lisinopril Allergy Intermediate Hives and Verified 06/26/24 13:14 diarrhea Sulfa (Sulfonamide Allergy Hives Verified 06/26/24 13:14 Antibiotics) Family History Mother Diabetes Heart disease Father AAA (abdominal aortic aneurysm) Heart disease Surgical History ... [facility] AF[facility] ([id number]) 1955 M Date Time Provider Department 06/25/24 JACI ARROYO [facility] During your visit today, we recorded the following information about you: Amaya Kessler RN 06/25/2024 3:03 PM Signed Patient's calling. States tip of patient's penis is red and irritated where foreskin is. Area cleansed well. asking if Dr. Arroyo would reorder Lotrisone cream for this, as this was ordered last time? Pended. asking if PCP feels patient needs an antibiotic ordered for this as well? States patient is having a colonoscopy done on Friday 06/29, and asking if it would be safe for pt to take an antibiotic? Please call with reply. Thank you. Jaci Arroyo MD 06/25/2024 3:05 PM Signed OK for Lotrisone cream as ordered; I do not think he would also need an antibiotic MD Anthony Mathew Kathryn, MA 06/25/2024 4:19 PM Signed Pt notified. Monica Cruz MA Allergies As of Date: 06/25/2024 Noted Allergy Reaction LISINOPRIL 09/27/2016 7 - Swelling 18 - Angioedema Comments: Lip swelling after starting lisinopril. DOXYCYCLINE 12/11/2022 8 - GI Upset 14 - Other: See Comments Comments: GI upset (stomach ache/cramping/diarrhea ) and splotchy face SULFA (SULFONAMIDE ANTIBIOTICS) 03/11/2019 4 - Hives ZPAK (AZITHROMYCIN) 10/03/2018 4 - Hives Date Reviewed: 05/20/2024 Reviewed by: Michelle Webb PA-C - Fully Assessed Reason for Visit: Medication Request [138] Patient Update [1234] Order(s):clotrimazole- betamethasone (LOTRISONE) creamApply to affected area two times a day.Disp: 45 gRfl: 1 Prescriptions as of 06/25/2024 - clotrimazole-betametha sone (LOTRISONE) cream Apply to affected area two times a day. - levETIRAcetam (KEPPRA) 500 mg tablet Take 1 tablet by mouth two times a day. - baclofen 10 mg tablet Take 1 tablet by mouth three times a day. - OXYGEN, HOME THERAPY, 4 L/min by Nasal Cannula route as directed. - busPIRone (BUSPAR) 15 mg tablet take 1 tablet by mouth three times a day - STIOLTO RESPIMAT 2.5-2.5 mcg/actuation inhaler inhale 2 puffs by mouth as directed once daily - LORazepam (ATIVAN) 1 mg tablet Take 1-2 tablets by mouth three times a day as needed for anxiety for up to 45 days. Take 1-2 pills three times a day - multivitamin tablet Take 1 tablet by mouth once daily. - potassium chloride (K-TAB) 10 mEq tablet Take 2 tablets by mouth three times a day. - albuterol (PROVENTIL) 2.5 mg /3 mL (0.083 %) nebulizer solution INHALE 1 VIAL VIA NEBULIZER EVERY 4 HOURS NEEDED FOR WHEEZING/SHORTNESS OF BREATH. USE OVER 5-15 MINUTES - clopidogrel (PLAVIX) 75 mg tablet Take 1 tablet by mouth once daily. - amLODIPine (NORVASC) 10 mg tablet Take 0.5 tablets by mouth two times a day. Take 1/2 tablet twice daily - ezetimibe (ZETIA) 10 mg tablet Take 1 tablet by mouth once daily. - losartan (COZAAR) 25 mg tablet Take 1 tablet by mouth once daily. - ferrous sulfate (FEROSUL) 325 mg (65 mg iron) tablet Take 1 tablet by mouth two times a day. - amiodarone (PACERONE) 100 mg tablet TAKE 1 TABLET BY MOUTH ONCE DAILY *DO NOT TAKE IF HEART RATE IS LESS THAN 40* - atorvastatin (LIPITOR) 40 mg tablet take 1 tablet by mouth once daily - escitalopram oxalate (LEXAPRO) 20 mg tablet take 1 tablet by mouth once daily - apixaban (ELIQUIS) 5 mg tab(s) take 1 tablet by mouth twice daily - metoprolol tartrate, short acting, (LOPRESSOR) 25 mg tablet TAKE 1/2 TABLET BY MOUTH TWICE DAILY. HOLD IF HEART RATE IS LESS THAN 60 - acetaminophen (TYLENOL EXTRA STRENGTH) 500 mg tablet Take 2 tablets by mouth three times a day as needed for pain. - traZODone (DESYREL) 100 mg tablet Take 1 tablet by mouth daily at bedtime. - albuterol HFA (PROVENTIL HFA, VENTOLIN HFA) 90 mcg/actuation inhaler Inhale 2 Puffs as instructed every 4 hours as needed. - fluticasone (FLONASE) 50 mcg/actuation nasal spray Use 1 [place] in each nostril twice daily. Rinse mouth after use. - Blood Pressure Monitor kit 1 application twice daily. Measure patient for correct size. Patient needs cuff for left arm readings. - COMPOUNDED PRESCRIPTION Articulating AFO foot brace for right leg. Send to [employer]. Dx: I63.9 - COMPOUNDED PRESCRIPTION EMBER WALKER DX I63.9 weight 162 # Problem List As Of Date 06/25/2024 Noted Resolved Hyperlipidemia [E78.5] 06/06/2010 Elevated blood pressure [ZZN5139] 06/06/2010 03/20/2019 Erectile dysfunction [N52.9] 06/06/2010 Cervicalgia [M54.2] 04/16/2016 Chronic right shoulder pain [M25.511, G89.29] 04/16/2016 Occlusion of left carotid artery [I65.22] 07/02/2016 Stroke (cerebrum) (HCC) [I63.9] Aneurysm (HCC) [I72.9] Essential hypertension [I10] 06/25/2017 Anxiety [F41.9] 09/04/2017 Chronic insomnia [F51.04] 04/04/2018 Right hemiplegia (HCC) [G81.91] 04/30/2018 Bradycardia [R00.1 (more content not included)... [facility] AFSH[facility] ([id number]) 1955 M Date Time Provider Department 06/25/24 ROBIN JOHANSEN During your visit today, we recorded the following information about you: Rody Main RN 06/25/2024 4:55 PM Signed Eli called in with concerns about his blood thinner. Given instruction to stop Plavix for colonoscopy but states patient has been off of it for a long time. Ordered in Error in 12/2023. Patient taking Eliquis. Med Rec updated. Rody Main RN Allergies As of Date: 06/25/2024 Noted Allergy Reaction LISINOPRIL 09/27/2016 7 - Swelling 18 - Angioedema Comments: Lip swelling after starting lisinopril. DOXYCYCLINE 12/11/2022 8 - GI Upset 14 - Other: See Comments Comments: GI upset (stomach ache/cramping/diarrhea ) and splotchy face SULFA (SULFONAMIDE ANTIBIOTICS) 03/11/2019 4 - Hives ZPAK (AZITHROMYCIN) 10/03/2018 4 - Hives Date Reviewed: 05/20/2024 Reviewed by: Michelle Webb PA-C - Fully Assessed Prescriptions as of 06/25/2024 - clotrimazole-betametha sone (LOTRISONE) cream Apply to affected area two times a day. - levETIRAcetam (KEPPRA) 500 mg tablet Take 1 tablet by mouth two times a day. - baclofen 10 mg tablet Take 1 tablet by mouth three times a day. - OXYGEN, HOME THERAPY, 4 L/min by Nasal Cannula route as directed. - busPIRone (BUSPAR) 15 mg tablet take 1 tablet by mouth three times a day - STIOLTO RESPIMAT 2.5-2.5 mcg/actuation inhaler inhale 2 puffs by mouth as directed once daily - LORazepam (ATIVAN) 1 mg tablet Take 1-2 tablets by mouth three times a day as needed for anxiety for up to 45 days. Take 1-2 pills three times a day - multivitamin tablet Take 1 tablet by mouth once daily. - potassium chloride (K-TAB) 10 mEq tablet Take 2 tablets by mouth three times a day. - albuterol (PROVENTIL) 2.5 mg /3 mL (0.083 %) nebulizer solution INHALE 1 VIAL VIA NEBULIZER EVERY 4 HOURS NEEDED FOR WHEEZING/SHORTNESS OF BREATH. USE OVER 5-15 MINUTES - clopidogrel (PLAVIX) 75 mg tablet Take 1 tablet by mouth once daily. - amLODIPine (NORVASC) 10 mg tablet Take 0.5 tablets by mouth two times a day. Take 1/2 tablet twice daily - ezetimibe (ZETIA) 10 mg tablet Take 1 tablet by mouth once daily. - losartan (COZAAR) 25 mg tablet Take 1 tablet by mouth once daily. - ferrous sulfate (FEROSUL) 325 mg (65 mg iron) tablet Take 1 tablet by mouth two times a day. - amiodarone (PACERONE) 100 mg tablet TAKE 1 TABLET BY MOUTH ONCE DAILY *DO NOT TAKE IF HEART RATE IS LESS THAN 40* - atorvastatin (LIPITOR) 40 mg tablet take 1 tablet by mouth once daily - escitalopram oxalate (LEXAPRO) 20 mg tablet take 1 tablet by mouth once daily - apixaban (ELIQUIS) 5 mg tab(s) take 1 tablet by mouth twice daily - metoprolol tartrate, short acting, (LOPRESSOR) 25 mg tablet TAKE 1/2 TABLET BY MOUTH TWICE DAILY. HOLD IF HEART RATE IS LESS THAN 60 - acetaminophen (TYLENOL EXTRA STRENGTH) 500 mg tablet Take 2 tablets by mouth three times a day as needed for pain. - traZODone (DESYREL) 100 mg tablet Take 1 tablet by mouth daily at bedtime. - albuterol HFA (PROVENTIL HFA, VENTOLIN HFA) 90 mcg/actuation inhaler Inhale 2 Puffs as instructed every 4 hours as needed. - fluticasone (FLONASE) 50 mcg/actuation nasal spray Use 1 [place] in each nostril twice daily. Rinse mouth after use. - Blood Pressure Monitor kit 1 application twice daily. Measure patient for correct size. Patient needs cuff for left arm readings. - COMPOUNDED PRESCRIPTION Articulating AFO foot brace for right leg. Send to [employer]. Dx: I63.9 - COMPOUNDED PRESCRIPTION EMBER WALKER DX I63.9 weight 162 # Problem List As Of Date 06/25/2024 Noted Resolved Hyperlipidemia [E78.5] 06/06/2010 Elevated blood pressure [[id number]] 06/06/2010 03/20/2019 Erectile dysfunction [N52.9] 06/06/2010 Cervicalgia [M54.2] 04/16/2016 Chronic right shoulder pain [M25.511, G89.29] 04/16/2016 Occlusion of left carotid artery [I65.22] 07/02/2016 Stroke (cerebrum) (HCC) [I63.9] Aneurysm (HCC) [I72.9] Essential hypertension [I10] 06/25/2017 Anxiety [F41.9] 09/04/2017 Chronic insomnia [F51.04] 04/04/2018 Right hemiplegia (HCC) [G81.91] 04/30/2018 Bradycardia [R00.1] 03/20/2019 Dysphasia [R47.02] Coronary artery disease involving [place]*04/02/2021 Paroxysmal atrial fibrillation (HCC) [I48.0] 04/03/2021 Aphasia as late effect of cerebrovascular accid*05/10/2022 Bacterial pneumonia [J15.9] 11/17/2022 03/12/2023 Tracheostomy status (HCC) [Z93.0] 12/04/2022 02/26/2023 Respiratory failure, unspecified chronicity, un*03/07/2023 03/12/2023 Stage 3a chronic kidney disease (HCC) [N18.31] 03/07/2023 COPD with exacerbation (HCC) [J44.1] 03/12/2023 03/12/2023 Centrilobular emphysema (HCC) [J43.2] 03/12/2023 Former cigarette smoker [Z87.891] 03/12/2023 Stage 3 chronic kidney disease, unspecif (more content not included)... 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 She was asking about Plavix and Amiodarone, Eliquis, Losartan prior to his colonoscopy, if he needs to stop any of them? She did not stop the Iron 7 days prior so she is calling General Surgery office to see if he needs to have procedure rescheduled. Please advise Jaci Arroyo MD 06/25/2024 3:07 PM Signed He should hold the Plavix after today, and hold the Eliquis the day before the colonoscopy. The Losartan and amiodarone he may take normally, no need to hold. MD Anthony Mathew Kathryn, MA 06/25/2024 4:37 PM Signed Pt notified. She does not believe pt is taking Plavix any longer as she couldn't find it in his meds. Doesn't look like our office is prescribing that so it may have been cancelled by the prescribing provider. She states he had an EEG done at [facility] which was ordered by Neurologist Dr. Aj. She states it came back showing start of seizures. Started him on Keppra 500 mg 1 pill BID. She is not sure if she wants to start him on it after reading side effects. Has appt to follow up in Sep with Neuro. Monica Cruz MA Allergies As of Date: 06/24/2024 Noted Allergy Reaction LISINOPRIL 09/27/2016 7 - Swelling 18 - Angioedema Comments: Lip swelling after starting lisinopril. DOXYCYCLINE 12/11/2022 8 - GI Upset 14 - Other: See Comments Comments: GI upset (stomach ache/cramping/diarrhea ) and splotchy face SULFA (SULFONAMIDE ANTIBIOTICS) 03/11/2019 4 - Hives ZPAK (AZITHROMYCIN) 10/03/2018 4 - Hives Date Reviewed: 05/20/2024 Reviewed by: Michelle Webb PA-C - Fully Assessed Reason for Visit: Medication Question [1328] Prescriptions as of 06/25/2024 - clotrimazole-betametha sone (LOTRISONE) cream Apply to affected area two times a day. - levETIRAcetam (KEPPRA) 500 mg tablet Take 1 tablet by mouth two times a day. - baclofen 10 mg tablet Take 1 tablet by mouth three times a day. - OXYGEN, HOME THERAPY, 4 L/min by Nasal Cannula route as directed. - busPIRone (BUSPAR) 15 mg tablet take 1 tablet by mouth three times a day - STIOLTO RESPIMAT 2.5-2.5 mcg/actuation inhaler inhale 2 puffs by mouth as directed once daily - LORazepam (ATIVAN) 1 mg tablet Take 1-2 tablets by mouth three times a day as needed for anxiety for up to 45 days. Take 1-2 pills three times a day - multivitamin tablet Take 1 tablet by mouth once daily. - potassium chloride (K-TAB) 10 mEq tablet Take 2 tablets by mouth three times a day. - albuterol (PROVENTIL) 2.5 mg /3 mL (0.083 %) nebulizer solution INHALE 1 VIAL VIA NEBULIZER EVERY 4 HOURS NEEDED FOR WHEEZING/SHORTNESS OF BREATH. USE OVER 5-15 MINUTES - clopidogrel (PLAVIX) 75 mg tablet Take 1 tablet by mouth once daily. - amLODIPine (NORVASC) 10 mg tablet Take 0.5 tablets by mouth two times a day. Take 1/2 tablet twice daily - ezetimibe (ZETIA) 10 mg tablet Take 1 tablet by mouth once daily. - losartan (COZAAR) 25 mg tablet Take 1 tablet by mouth once daily. - ferrous sulfate (FEROSUL) 325 mg (65 mg iron) tablet Take 1 tablet by mouth two times a day. - amiodarone (PACERONE) 100 mg tablet TAKE 1 TABLET BY MOUTH ONCE DAILY *DO NOT TAKE IF HEART RATE IS LESS THAN 40* - atorvastatin (LIPITOR) 40 mg tablet take 1 tablet by mouth once daily - escitalopram oxalate (LEXAPRO) 20 mg tablet take 1 tablet by mouth once daily - apixaban (ELIQUIS) 5 mg tab(s) take 1 tablet by mouth twice daily - metoprolol tartrate, short acting, (LOPRESSOR) 25 mg tablet TAKE 1/2 TABLET BY MOUTH TWICE DAILY. HOLD IF HEART RATE IS LESS THAN 60 - acetaminophen (TYLENOL EXTRA STRENGTH) 500 mg tablet Take 2 tablets by mouth three times a day as needed for pain. - traZODone (DESYREL) 100 mg tablet Take 1 tablet by mouth daily at bedtime. - albuterol HFA (PROVENTIL HFA, VENTOLIN HFA) 90 mcg/actuation inhaler Inhale 2 Puffs as instructed every 4 hours as needed. - fluticasone (FLONASE) 50 mcg/actuation nasal spray Use 1 [place] in each nostril twice daily. Rinse mouth after use. - Blood Pressure Monitor kit 1 application twice daily. Measure patient for correct size. Patient needs cuff for left arm readings. - COMPOUNDED PRESCRIPTION Articulating AFO foot brace for right leg. Send to [employer]. Dx: I63.9 - COMPOUNDED PRESCRIPTION EMBER WALKER DX I63.9 weight 162 # Problem List As Of Date 06/24/2024 Noted Resolved Hyperlipidemia [E78.5] 06/06/2010 Elevated blood pressure [[id number]] 06/06/2010 03/20/2019 Erectile dysfunction [N52.9] (more content not included)... Normal [facility] 06-23-2024 [facility] Telephone (NIQ) AFSHIN ZEE ([id number]) 1955 M Date Time Provider Department 06/23/24 DANIA AJ JR During your visit today, we recorded the following information about you: Jayde Laughlin RN 06/23/2024 8:17 AM Signed Patient's Eli calls and is asking about EEG results that were done at [facility] on 06/15/2024. Please review and advise, DIANE Power Brittany L, MA 06/23/2024 4:46 PM Signed Please review results. Christina Ozuna MA View External Procedures - EEG [ID [id number]] Dania Aj Jr., MD 06/24/2024 12:38 PM Signed Per the EEG report, appears sharps are noted in the L hemisphere consistent with underlying insult. I would recommend patient be on seizure medication if none started since last saw in 03/2024. If they agree, will likely start on Keppra 500mg BID. MD Alcides Marie Samaria, LPN 06/24/2024 1:05 PM Signed Called patient, no answer. LVM. Please review and advise patient of message below. Mayela Mcgrath LPN June 24, 2024 1:05 PM Pati Hare LPN 06/24/2024 1:31 PM Signed Patients would like further explanation as to why the seizure medication is needed. States that he has not had any seizures that she is aware. Michelle Webb PA-C 06/24/2024 2:33 PM Signed Patient's , JONAH presented to the office due to concerns of the EEG. Confirmed name and relation to patient. Discussed EEG results including sharps and no actual seizure captured. Encouraged starting Keppra and patient's family amenable to this, discussed side effects. Of note, he was scheduled for an additional EEG and feel this may be a missed schedule. Clarified with Dr. Aj and he has not needed further EEG at evaluation. Will have him cancel this appointment. Will send Keppra 500 mg twice daily to pharmacy. Michelle Webb PA-C 06/24/2024 2:36 PM Signed Addended by: MICHELLE WEBB on: 06/24/2024 02:36 PM Modules accepted: Alessia Gentile OCCA 06/25/2024 2:42 PM Signed TC to patient's POA, Eli, and given providers instructions below regarding EEG. Per Eli's request, appointment has been cancelled. Nothing further at this time. JANINA Iglesias Allergies As of Date: 06/23/2024 Noted Allergy Reaction LISINOPRIL 09/27/2016 7 - Swelling 18 - Angioedema Comments: Lip swelling after starting lisinopril. DOXYCYCLINE 12/11/2022 8 - GI Upset 14 - Other: See Comments Comments: GI upset (stomach ache/cramping/diarrhea ) and splotchy face SULFA (SULFONAMIDE ANTIBIOTICS) 03/11/2019 4 - Hives ZPAK (AZITHROMYCIN) 10/03/2018 4 - Hives Date Reviewed: 05/20/2024 Reviewed by: Michelle Webb PA-C - Fully Assessed Reason for Visit: Results [95] Order(s):levETIRAcetam (KEPPRA) 500 mg tabletTake 1 tablet by mouth two times a day.Disp: 60 tabletRfl: 2 Prescriptions as of 06/25/2024 - levETIRAcetam (KEPPRA) 500 mg tablet Take 1 tablet by mouth two times a day. - baclofen 10 mg tablet Take 1 tablet by mouth three times a day. - OXYGEN, HOME THERAPY, 4 L/min by Nasal Cannula route as directed. - busPIRone (BUSPAR) 15 mg tablet take 1 tablet by mouth three times a day - STIOLTO RESPIMAT 2.5-2.5 mcg/actuation inhaler inhale 2 puffs by mouth as directed once daily - LORazepam (ATIVAN) 1 mg tablet Take 1-2 tablets by mouth three times a day as needed for anxiety for up to 45 days. Take 1-2 pills three times a day - multivitamin tablet Take 1 tablet by mouth once daily. - potassium chloride (K-TAB) 10 mEq tablet Take 2 tablets by mouth three times a day. - albuterol (PROVENTIL) 2.5 mg /3 mL (0.083 %) nebulizer solution INHALE 1 VIAL VIA NEBULIZER EVERY 4 HOURS NEEDED FOR WHEEZING/SHORTNESS OF BREATH. USE OVER 5-15 MINUTES - clotrimazole-betametha sone (LOTRISONE) cream Apply to affected area two times a day. - clopidogrel (PLAVIX) 75 mg tablet Take 1 tablet by mouth once daily. - amLODIPine (NORVASC) 10 mg tablet Take 0.5 tablets by mouth two times a day. Take 1/2 tablet twice daily - ezetimibe (ZETIA) 10 mg tablet Take 1 tablet by mouth once daily. - losartan (COZAAR) 25 mg tablet Take 1 tablet by mouth once daily. - ferrous sulfate (FEROSUL) 325 mg (65 mg iron) tablet Take 1 tablet by mouth two times a day. - amiodarone (PACERONE) 100 mg tablet TAKE 1 TABLET BY MOUTH ONCE DAILY *DO NOT TAKE IF HEART RATE IS LESS THAN 40* - atorvastatin (LIPITOR) 40 mg tablet take 1 tablet by mouth once daily - escitalopram oxalate (LEXAPRO) 20 mg tablet take 1 tablet by mouth once daily - apixaban (ELIQUIS) 5 mg tab(s) take 1 tablet by mouth twice daily - metoprolol tartrate, short acting, (LOPRESSOR) 25 mg tablet TAKE 1/2 TABLET BY MOUTH TWICE DAILY. HOLD IF HEART RATE IS LESS THAN 60 - acetaminophen (TYLENOL EXTRA STRENGTH) 500 mg tablet Take 2 tablets by mouth three times a day as needed for pain. (more content not included)... Normal [facility] AF[facility] ([id number]) 1955 M Date Time Provider Department 06/18/24 JACI ARROYO [facility] During your visit today, we recorded the following information about you: Kimo Adamson MA 06/18/2024 2:56 PM Signed Patient is having colonoscopy 06/29 but not sure which medication need help for procedure. Aware sending to provider coordinator of online programs since pcp is out of office. Verified with spouse patient is NOT on plavix but is doing eliquis and all other medication is correct JIMI Real Jeffrey A, MD 06/18/2024 4:35 PM Signed Advise to contact the provider doing the colonoscopy to see if they need him to hold any of his medications and when to start holding them? Amada Kauffman MA 06/18/2024 4:48 PM Signed Patients informed to contact provider performing colonoscopy. JIMI Parsons Rhonda, RN 06/19/2024 8:32 AM Signed Jorge Cardoso MD [facility] General Surgery Pool I don't stop anticoagulants. I don't see any medications that I would stop - Rich My Chart message sent to patient's , with Go Lytely instructions attached. Lora James RN Allergies As of Date: 06/18/2024 Noted Allergy Reaction LISINOPRIL 09/27/2016 7 - Swelling 18 - Angioedema Comments: Lip swelling after starting lisinopril. DOXYCYCLINE 12/11/2022 8 - GI Upset 14 - Other: See Comments Comments: GI upset (stomach ache/cramping/diarrhea ) and splotchy face SULFA (SULFONAMIDE ANTIBIOTICS) 03/11/2019 4 - Hives ZPAK (AZITHROMYCIN) 10/03/2018 4 - Hives Date Reviewed: 05/20/2024 Reviewed by: Michelle Webb PA-C - Fully Assessed Reason for Visit: Procedure [88] Visit Diagnosis:Blood in stool [K92.1] Prescriptions as of 06/19/2024 - baclofen 10 mg tablet Take 1 tablet by mouth three times a day. - OXYGEN, HOME THERAPY, 4 L/min by Nasal Cannula route as directed. - busPIRone (BUSPAR) 15 mg tablet take 1 tablet by mouth three times a day - STIOLTO RESPIMAT 2.5-2.5 mcg/actuation inhaler inhale 2 puffs by mouth as directed once daily - LORazepam (ATIVAN) 1 mg tablet Take 1-2 tablets by mouth three times a day as needed for anxiety for up to 45 days. Take 1-2 pills three times a day - multivitamin tablet Take 1 tablet by mouth once daily. - potassium chloride (K-TAB) 10 mEq tablet Take 2 tablets by mouth three times a day. - albuterol (PROVENTIL) 2.5 mg /3 mL (0.083 %) nebulizer solution INHALE 1 VIAL VIA NEBULIZER EVERY 4 HOURS NEEDED FOR WHEEZING/SHORTNESS OF BREATH. USE OVER 5-15 MINUTES - clotrimazole-betametha sone (LOTRISONE) cream Apply to affected area two times a day. - clopidogrel (PLAVIX) 75 mg tablet Take 1 tablet by mouth once daily. - amLODIPine (NORVASC) 10 mg tablet Take 0.5 tablets by mouth two times a day. Take 1/2 tablet twice daily - ezetimibe (ZETIA) 10 mg tablet Take 1 tablet by mouth once daily. - losartan (COZAAR) 25 mg tablet Take 1 tablet by mouth once daily. - ferrous sulfate (FEROSUL) 325 mg (65 mg iron) tablet Take 1 tablet by mouth two times a day. - amiodarone (PACERONE) 100 mg tablet TAKE 1 TABLET BY MOUTH ONCE DAILY *DO NOT TAKE IF HEART RATE IS LESS THAN 40* - atorvastatin (LIPITOR) 40 mg tablet take 1 tablet by mouth once daily - escitalopram oxalate (LEXAPRO) 20 mg tablet take 1 tablet by mouth once daily - apixaban (ELIQUIS) 5 mg tab(s) take 1 tablet by mouth twice daily - metoprolol tartrate, short acting, (LOPRESSOR) 25 mg tablet TAKE 1/2 TABLET BY MOUTH TWICE DAILY. HOLD IF HEART RATE IS LESS THAN 60 - acetaminophen (TYLENOL EXTRA STRENGTH) 500 mg tablet Take 2 tablets by mouth three times a day as needed for pain. - traZODone (DESYREL) 100 mg tablet Take 1 tablet by mouth daily at bedtime. - albuterol HFA (PROVENTIL HFA, VENTOLIN HFA) 90 mcg/actuation inhaler Inhale 2 Puffs as instructed every 4 hours as needed. - fluticasone (FLONASE) 50 mcg/actuation nasal spray Use 1 [place] in each nostril twice daily. Rinse mouth after use. - Blood Pressure Monitor kit 1 application twice daily. Measure patient for correct size. Patient needs cuff for left arm readings. - COMPOUNDED PRESCRIPTION Articulating AFO foot brace for right leg. Send to [employer]. Dx: I63.9 - COMPOUNDED PRESCRIPTION EMBER WALKER DX I63.9 weight 162 # Problem List As Of Date 06/18/2024 Noted Resolved Hyperlipidemia [E78.5] 06/06/2010 Elevated blood pressure [CCE6224] 06/06/2010 03/20/2019 Erectile dysfunction [N52.9] 06/06/2010 Cervicalgia [M54.2] 04/16/2016 Chronic right shoulder pain [M25.511, G89.29] 04/16/2016 Occlusion of left carotid artery [I65.22] 07/02/2016 Stroke (cerebrum) (HCC) [I63.9] Aneurysm (HCC) [I72.9] Essential hypertension [I10] 06/25/2017 Anxiety [F41.9] 09/04/2017 Chronic insomnia [F51.04] 04/04/2018 Right hemiplegia ([facility]) [G81.91] 04/30/2018 Bradycardia (more content not included)... Normal [facility] CNPN Telephone (FAMPWS) AFSHIN ZEE ([id number]) 1955 M Date Time Provider Department 06/18/24 JACI ARROYO [facility]WS During your visit today, we recorded the following information about you: Kimo Adamson MA 06/18/2024 11:11 AM Signed Prior Authorization has been completed online at [employer] for Amiodarone, will await response. LORD- [id number] Please keep encounter open until final decision has been received and documented from insurance company. Kimo Nixon MA, MA 06/18/2024 2:46 PM Signed PA approved till 08/04/25 and patient was notified Kimo Adamson MA Allergies As of Date: 06/18/2024 Noted Allergy Reaction LISINOPRIL 09/27/2016 7 - Swelling 18 - Angioedema Comments: Lip swelling after starting lisinopril. DOXYCYCLINE 12/11/2022 8 - GI Upset 14 - Other: See Comments Comments: GI upset (stomach ache/cramping/diarrhea ) and splotchy face SULFA (SULFONAMIDE ANTIBIOTICS) 03/11/2019 4 - Hives ZPAK (AZITHROMYCIN) 10/03/2018 4 - Hives Date Reviewed: 05/20/2024 Reviewed by: Michelle Webb PA-C - Fully Assessed Reason for Visit: Insurance Authorization [[id number]] Cmt: Amiodarone Prescriptions as of 06/18/2024 - baclofen 10 mg tablet Take 1 tablet by mouth three times a day. - OXYGEN, HOME THERAPY, 4 L/min by Nasal Cannula route as directed. - busPIRone (BUSPAR) 15 mg tablet take 1 tablet by mouth three times a day - STIOLTO RESPIMAT 2.5-2.5 mcg/actuation inhaler inhale 2 puffs by mouth as directed once daily - LORazepam (ATIVAN) 1 mg tablet Take 1-2 tablets by mouth three times a day as needed for anxiety for up to 45 days. Take 1-2 pills three times a day - multivitamin tablet Take 1 tablet by mouth once daily. - potassium chloride (K-TAB) 10 mEq tablet Take 2 tablets by mouth three times a day. - albuterol (PROVENTIL) 2.5 mg /3 mL (0.083 %) nebulizer solution INHALE 1 VIAL VIA NEBULIZER EVERY 4 HOURS NEEDED FOR WHEEZING/SHORTNESS OF BREATH. USE OVER 5-15 MINUTES - clotrimazole-betametha sone (LOTRISONE) cream Apply to affected area two times a day. - clopidogrel (PLAVIX) 75 mg tablet Take 1 tablet by mouth once daily. - amLODIPine (NORVASC) 10 mg tablet Take 0.5 tablets by mouth two times a day. Take 1/2 tablet twice daily - ezetimibe (ZETIA) 10 mg tablet Take 1 tablet by mouth once daily. - losartan (COZAAR) 25 mg tablet Take 1 tablet by mouth once daily. - ferrous sulfate (FEROSUL) 325 mg (65 mg iron) tablet Take 1 tablet by mouth two times a day. - amiodarone (PACERONE) 100 mg tablet TAKE 1 TABLET BY MOUTH ONCE DAILY *DO NOT TAKE IF HEART RATE IS LESS THAN 40* - atorvastatin (LIPITOR) 40 mg tablet take 1 tablet by mouth once daily - escitalopram oxalate (LEXAPRO) 20 mg tablet take 1 tablet by mouth once daily - apixaban (ELIQUIS) 5 mg tab(s) take 1 tablet by mouth twice daily - metoprolol tartrate, short acting, (LOPRESSOR) 25 mg tablet TAKE 1/2 TABLET BY MOUTH TWICE DAILY. HOLD IF HEART RATE IS LESS THAN 60 - acetaminophen (TYLENOL EXTRA STRENGTH) 500 mg tablet Take 2 tablets by mouth three times a day as needed for pain. - traZODone (DESYREL) 100 mg tablet Take 1 tablet by mouth daily at bedtime. - albuterol HFA (PROVENTIL HFA, VENTOLIN HFA) 90 mcg/actuation inhaler Inhale 2 Puffs as instructed every 4 hours as needed. - fluticasone (FLONASE) 50 mcg/actuation nasal spray Use 1 [place] in each nostril twice daily. Rinse mouth after use. - Blood Pressure Monitor kit 1 application twice daily. Measure patient for correct size. Patient needs cuff for left arm readings. - COMPOUNDED PRESCRIPTION Articulating AFO foot brace for right leg. Send to [employer]. Dx: I63.9 - COMPOUNDED PRESCRIPTION EMBER WALKER DX I63.9 weight 162 # Problem List As Of Date 06/18/2024 Noted Resolved Hyperlipidemia [E78.5] 06/06/2010 Elevated blood pressure [CHG5390] 06/06/2010 03/20/2019 Erectile dysfunction [N52.9] 06/06/2010 Cervicalgia [M54.2] 04/16/2016 Chronic right shoulder pain [M25.511, G89.29] 04/16/2016 Occlusion of left carotid artery [I65.22] 07/02/2016 Stroke (cerebrum) (HCC) [I63.9] Aneurysm (HCC) [I72.9] Essential hypertension [I10] 06/25/2017 Anxiety [F41.9] 09/04/2017 Chronic insomnia [F51.04] 04/04/2018 Right hemiplegia (HCC) [G81.91] 04/30/2018 Bradycardia [R00.1] 03/20/2019 Dysphasia [R47.02] Coronary artery disease involving [place]*04/02/2021 Paroxysmal atrial fibrillation (HCC) [I48.0] 04/03/2021 Aphasia as late effect of cerebrovascular accid*05/10/2022 Bacterial pneumonia [J15.9] 11/17/2022 03/12/2023 Tracheostomy status (HCC) [Z93.0] 12/04/2022 02/26/2023 Respiratory failure, unspecified chronicity, un*03/07/2023 03/12/2023 Stage 3a chronic kidney disease (HCC) [N18.31] 03/07/2023 COPD with exacerbation (HCC) [J44.1] 03/12/2023 03/12/2023 Centrilobular em (more content not included)... Normal [facility] CNPNon 06-02-2024 CNPN Telephone (NSEAP) ZEEAFSHIN ([id number]) 1955 M Date Time Provider Department 06/02/24 GLORIA SAWYER NSEJOHAN During your visit today, we recorded the following information about you: Alix Valdiviaica 06/02/2024 11:34 AM Signed CV PHONE Name of caller : Eli Relationship to patient : Spouse If not self Will need patient permission to release results or disclose health information with called documented in . Patient identified by Name and Date of . ( Afshin Zee, 1955). Yes Number to return call [phone] Reason for Call: Patient spouse is calling regarding schedule CTA HEAD AND NECK. I advised imaging is already order in the chart. I transferred her for scheduling. Please call [phone] to provide any other follow up instructions. Thank you. Thank you calling [facility]. You will receive a return call within 48 hours ( or 2 business days if close to the weekend). If you feel that this is an urgent issue and needs immediate attention, it is recommended that you contact your primary care provider office or proceed to your nearest Urgent Care Center of Emergency Room ED for evaluation/treatment. Allergies As of Date: 06/02/2024 Noted Allergy Reaction LISINOPRIL 09/27/2016 7 - Swelling 18 - Angioedema Comments: Lip swelling after starting lisinopril. DOXYCYCLINE 12/11/2022 8 - GI Upset 14 - Other: See Comments Comments: GI upset (stomach ache/cramping/diarrhea ) and splotchy face SULFA (SULFONAMIDE ANTIBIOTICS) 03/11/2019 4 - Hives ZPAK (AZITHROMYCIN) 10/03/2018 4 - Hives Date Reviewed: 05/20/2024 Reviewed by: Michelle Webb PA-C - Fully Assessed Reason for Visit: Question [1327] Prescriptions as of 06/02/2024 - iv contrast (will be provided with radiology test) CTA Head/Neck W No IV access, insert saline lock prior to the sedation, infusion, injection for imaging exam. Discontinue saline lock post exam. If Pt. has a central line or IVAD, may access for administration according to line specific nursing protocol. Once exam is complete flush line and de-access according to line specific nursing protocol in the CT contrast administration guidelines link. - baclofen 10 mg tablet Take 1 tablet by mouth three times a day. - OXYGEN, HOME THERAPY, 4 L/min by Nasal Cannula route as directed. - busPIRone (BUSPAR) 15 mg tablet take 1 tablet by mouth three times a day - STIOLTO RESPIMAT 2.5-2.5 mcg/actuation inhaler inhale 2 puffs by mouth as directed once daily - LORazepam (ATIVAN) 1 mg tablet Take 1-2 tablets by mouth three times a day as needed for anxiety for up to 45 days. Take 1-2 pills three times a day - multivitamin tablet Take 1 tablet by mouth once daily. - potassium chloride (K-TAB) 10 mEq tablet Take 2 tablets by mouth three times a day. - albuterol (PROVENTIL) 2.5 mg /3 mL (0.083 %) nebulizer solution INHALE 1 VIAL VIA NEBULIZER EVERY 4 HOURS NEEDED FOR WHEEZING/SHORTNESS OF BREATH. USE OVER 5-15 MINUTES - clotrimazole-betametha sone (LOTRISONE) cream Apply to affected area two times a day. - clopidogrel (PLAVIX) 75 mg tablet Take 1 tablet by mouth once daily. - amLODIPine (NORVASC) 10 mg tablet Take 0.5 tablets by mouth two times a day. Take 1/2 tablet twice daily - ezetimibe (ZETIA) 10 mg tablet Take 1 tablet by mouth once daily. - losartan (COZAAR) 25 mg tablet Take 1 tablet by mouth once daily. - ferrous sulfate (FEROSUL) 325 mg (65 mg iron) tablet Take 1 tablet by mouth two times a day. - amiodarone (PACERONE) 100 mg tablet TAKE 1 TABLET BY MOUTH ONCE DAILY *DO NOT TAKE IF HEART RATE IS LESS THAN 40* - atorvastatin (LIPITOR) 40 mg tablet take 1 tablet by mouth once daily - escitalopram oxalate (LEXAPRO) 20 mg tablet take 1 tablet by mouth once daily - apixaban (ELIQUIS) 5 mg tab(s) take 1 tablet by mouth twice daily - metoprolol tartrate, short acting, (LOPRESSOR) 25 mg tablet TAKE 1/2 TABLET BY MOUTH TWICE DAILY. HOLD IF HEART RATE IS LESS THAN 60 - acetaminophen (TYLENOL EXTRA STRENGTH) 500 mg tablet Take 2 tablets by mouth three times a day as needed for pain. - zinc oxide 20 % ointment Apply to affected area as needed. - traZODone (DESYREL) 100 mg tablet Take 1 tablet by mouth daily at bedtime. - albuterol HFA (PROVENTIL HFA, VENTOLIN HFA) 90 mcg/actuation inhaler Inhale 2 Puffs as instructed every 4 hours as needed. - aspirin, enteric coated (ASPIRIN, ENTERIC COATED) 81 mg EC tablet Take 81 mg by mouth once daily. - fluticasone (FLONASE) 50 mcg/actuation nasal spray Use 1 [place] in each nostril twice daily. Rinse mouth after use. - Blood Pressure Monitor kit 1 application twice daily. Measure patient for correct size. Patient needs cuff for left arm readings. - COMPOUNDED PRESCRIPTION Articulating AFO foot brace for right leg. Send to [employer]. Dx: I63.9 - COMPOU (more content not included)... Normal [facility] Ankle min 3 Viewson 05-28-20 Ankle min 3 Views [facility] [address] [place] [address] Ankle min 3 Views MR#: [id number] Acct: [id number] Name: AFSHIN ZEE Rep #: [id number] : 1955 M 68 From: Kendra Sanches MD PCP: Dr. Jaci Arroyo MD Status: DEP AMB Study: Ankle min 3 Views Date of Exam: 05/28/24 Exam# [id number] Ordering Dr: Davin Kim MD [id number] EXAM: XR RIGHT ANKLE COMPLETE, 3 OR MORE VIEWS CLINICAL INDICATION: fu TECHNIQUE: Frontal, lateral and oblique views of the right ankle. COMPARISON: November 04, 2023,early postop exam. FINDINGS: BONES/JOINTS: There is some bridging callus at the distal femur fracture and at the fracture at the base of the medial malleolus. Intact hardware at the medial and lateral ankle. Similar tiny ossification inferior to the medial malleolus similar. No sclerotic or destructive changes observed. No evidence of joint effusion. SOFT TISSUES: Unremarkable. No soft tissue swelling or gas. No radiopaque foreign body. RAD/Ankle min 3 Views IMPRESSION: No acute findings in the right ankle. Bridging callus at the fractures. No jesrey bone destruction. Electronically Signed: Kendra Sanches MD at 18:34 EDT , CC: Dr. Jaci Arroyo MD; Dr. 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 During your visit today, we recorded the following information about you: Lacy Ding, JAVI 05/28/2024 2:29 PM Signed Pt's calls states py is due to have colonoscopy on 06/29/24 asking if there are any med's you wish for him to hold for that? Please advise and let her know. Jaci Arroyo MD 05/28/2024 4:21 PM Signed He should hold the Plavix for 5 days before the colonoscopy, and hold the Eliquis for 2 days before the colonoscopy MD Anthony Mathew Kathryn, MA 05/28/2024 4:33 PM Signed Pt notified and repeated back to MA. Pt was also advised to hold Aspirin as well for 5 days before. Advised he can restart meds after colonoscopy, same day. Monica Cruz MA Allergies As of Date: 05/28/2024 Noted Allergy Reaction LISINOPRIL 09/27/2016 7 - Swelling 18 - Angioedema Comments: Lip swelling after starting lisinopril. DOXYCYCLINE 12/11/2022 8 - GI Upset 14 - Other: See Comments Comments: GI upset (stomach ache/cramping/diarrhea ) and splotchy face SULFA (SULFONAMIDE ANTIBIOTICS) 03/11/2019 4 - Hives ZPAK (AZITHROMYCIN) 10/03/2018 4 - Hives Date Reviewed: 05/20/2024 Reviewed by: Michelle Webb PA-C - Fully Assessed Prescriptions as of 05/28/2024 - baclofen 10 mg tablet Take 1 tablet by mouth three times a day. - OXYGEN, HOME THERAPY, 4 L/min by Nasal Cannula route as directed. - busPIRone (BUSPAR) 15 mg tablet take 1 tablet by mouth three times a day - STIOLTO RESPIMAT 2.5-2.5 mcg/actuation inhaler inhale 2 puffs by mouth as directed once daily - LORazepam (ATIVAN) 1 mg tablet Take 1-2 tablets by mouth three times a day as needed for anxiety for up to 45 days. Take 1-2 pills three times a day - multivitamin tablet Take 1 tablet by mouth once daily. - potassium chloride (K-TAB) 10 mEq tablet Take 2 tablets by mouth three times a day. - albuterol (PROVENTIL) 2.5 mg /3 mL (0.083 %) nebulizer solution INHALE 1 VIAL VIA NEBULIZER EVERY 4 HOURS NEEDED FOR WHEEZING/SHORTNESS OF BREATH. USE OVER 5-15 MINUTES - clotrimazole-betametha sone (LOTRISONE) cream Apply to affected area two times a day. - clopidogrel (PLAVIX) 75 mg tablet Take 1 tablet by mouth once daily. - amLODIPine (NORVASC) 10 mg tablet Take 0.5 tablets by mouth two times a day. Take 1/2 tablet twice daily - ezetimibe (ZETIA) 10 mg tablet Take 1 tablet by mouth once daily. - losartan (COZAAR) 25 mg tablet Take 1 tablet by mouth once daily. - ferrous sulfate (FEROSUL) 325 mg (65 mg iron) tablet Take 1 tablet by mouth two times a day. - amiodarone (PACERONE) 100 mg tablet TAKE 1 TABLET BY MOUTH ONCE DAILY *DO NOT TAKE IF HEART RATE IS LESS THAN 40* - atorvastatin (LIPITOR) 40 mg tablet take 1 tablet by mouth once daily - escitalopram oxalate (LEXAPRO) 20 mg tablet take 1 tablet by mouth once daily - apixaban (ELIQUIS) 5 mg tab(s) take 1 tablet by mouth twice daily - metoprolol tartrate, short acting, (LOPRESSOR) 25 mg tablet TAKE 1/2 TABLET BY MOUTH TWICE DAILY. HOLD IF HEART RATE IS LESS THAN 60 - acetaminophen (TYLENOL EXTRA STRENGTH) 500 mg tablet Take 2 tablets by mouth three times a day as needed for pain. - zinc oxide 20 % ointment Apply to affected area as needed. - traZODone (DESYREL) 100 mg tablet Take 1 tablet by mouth daily at bedtime. - albuterol HFA (PROVENTIL HFA, VENTOLIN HFA) 90 mcg/actuation inhaler Inhale 2 Puffs as instructed every 4 hours as needed. - aspirin, enteric coated (ASPIRIN, ENTERIC COATED) 81 mg EC tablet Take 81 mg by mouth once daily. - fluticasone (FLONASE) 50 mcg/actuation nasal spray Use 1 [place] in each nostril twice daily. Rinse mouth after use. - Blood Pressure Monitor kit 1 application twice daily. Measure patient for correct size. Patient needs cuff for left arm readings. - COMPOUNDED PRESCRIPTION Articulating AFO foot brace for right leg. Send to [employer]. Dx: I63.9 - COMPOUNDED PRESCRIPTION EMBER WALKER DX I63.9 weight 162 # Problem List As Of Date 05/28/2024 Noted Resolved Hyperlipidemia [E78.5] 06/06/2010 Elevated blood pressure [[id number]] 06/06/2010 03/20/2019 Erectile dysfunction [N52.9] 06/06/2010 Cervicalgia [M54.2] 04/16/2016 Chronic right shoulder pain [M25.511, G89.29] 04/16/2016 Occlusion of left carotid artery [I65.22] 07/02/2016 Stroke (cerebrum) (HCC) [I63.9] Aneurysm (HCC) [I72.9] Essential hypertension [I10] 06/25/2017 Anxiety [F41.9] 09/04/2017 Chronic insomnia [F51.04] 04/04/2018 Right hemiplegia (HCC) [G81.91] 04/30/2018 Bradycardia [R00.1] 03/20/2019 Dysphasia [R47.02] Coronary artery disease involving [place]os*04/02/2021 Paroxysmal atrial fibrillation (HCC) [I48.0] 04/03/2021 Aphasia as late effect of cerebrovascular accid*05/10/2022 Bacterial pn (more content not included)... Normal [facility] ([id number]) 1955 M Date Time Provider Department 05/28/24 [facility] During your visit today, we recorded the following information about you: Jayde Laughlin RN 05/28/2024 12:02 PM Signed Tete, patient's aide, calling and is trying to sort out patient's medication. Patient was previously getting baclofen 10 mg tablets with directions of take 1/2 tablet by mouth three times a day. This has been what patient has been taking. Patient's medication was done in pill packs. Pharmacy had sent new medication with directions of take 1 tablet by mouth daily. Appears like prescription was changed on 03/31/2024 but with the same quantity of pills and refill. Was prescription meant to be changed or should patient only be taking 1/2 pill? Patient's pharmacy is [facility]. Please review and advise, DIANE Power Mark D, MD 05/28/2024 3:43 PM Signed OK for 1 pill tid MD Anthony Mathew Kathryn, MA 05/28/2024 3:46 PM Signed Tete notified and voiced understanding. Monica Cruz MA Allergies As of Date: 05/28/2024 Noted Allergy Reaction LISINOPRIL 09/27/2016 7 - Swelling 18 - Angioedema Comments: Lip swelling after starting lisinopril. DOXYCYCLINE 12/11/2022 8 - GI Upset 14 - Other: See Comments Comments: GI upset (stomach ache/cramping/diarrhea ) and splotchy face SULFA (SULFONAMIDE ANTIBIOTICS) 03/11/2019 4 - Hives ZPAK (AZITHROMYCIN) 10/03/2018 4 - Hives Date Reviewed: 05/20/2024 Reviewed by: Michelle Webb PA-C - Fully Assessed Reason for Visit: Medication Clarification [Other] Prescriptions as of 05/28/2024 - baclofen 10 mg tablet Take 1 tablet by mouth three times a day. - OXYGEN, HOME THERAPY, 4 L/min by Nasal Cannula route as directed. - busPIRone (BUSPAR) 15 mg tablet take 1 tablet by mouth three times a day - STIOLTO RESPIMAT 2.5-2.5 mcg/actuation inhaler inhale 2 puffs by mouth as directed once daily - LORazepam (ATIVAN) 1 mg tablet Take 1-2 tablets by mouth three times a day as needed for anxiety for up to 45 days. Take 1-2 pills three times a day - multivitamin tablet Take 1 tablet by mouth once daily. - potassium chloride (K-TAB) 10 mEq tablet Take 2 tablets by mouth three times a day. - albuterol (PROVENTIL) 2.5 mg /3 mL (0.083 %) nebulizer solution INHALE 1 VIAL VIA NEBULIZER EVERY 4 HOURS NEEDED FOR WHEEZING/SHORTNESS OF BREATH. USE OVER 5-15 MINUTES - clotrimazole-betametha sone (LOTRISONE) cream Apply to affected area two times a day. - clopidogrel (PLAVIX) 75 mg tablet Take 1 tablet by mouth once daily. - amLODIPine (NORVASC) 10 mg tablet Take 0.5 tablets by mouth two times a day. Take 1/2 tablet twice daily - ezetimibe (ZETIA) 10 mg tablet Take 1 tablet by mouth once daily. - losartan (COZAAR) 25 mg tablet Take 1 tablet by mouth once daily. - ferrous sulfate (FEROSUL) 325 mg (65 mg iron) tablet Take 1 tablet by mouth two times a day. - amiodarone (PACERONE) 100 mg tablet TAKE 1 TABLET BY MOUTH ONCE DAILY *DO NOT TAKE IF HEART RATE IS LESS THAN 40* - atorvastatin (LIPITOR) 40 mg tablet take 1 tablet by mouth once daily - escitalopram oxalate (LEXAPRO) 20 mg tablet take 1 tablet by mouth once daily - apixaban (ELIQUIS) 5 mg tab(s) take 1 tablet by mouth twice daily - metoprolol tartrate, short acting, (LOPRESSOR) 25 mg tablet TAKE 1/2 TABLET BY MOUTH TWICE DAILY. HOLD IF HEART RATE IS LESS THAN 60 - acetaminophen (TYLENOL EXTRA STRENGTH) 500 mg tablet Take 2 tablets by mouth three times a day as needed for pain. - zinc oxide 20 % ointment Apply to affected area as needed. - traZODone (DESYREL) 100 mg tablet Take 1 tablet by mouth daily at bedtime. - albuterol HFA (PROVENTIL HFA, VENTOLIN HFA) 90 mcg/actuation inhaler Inhale 2 Puffs as instructed every 4 hours as needed. - aspirin, enteric coated (ASPIRIN, ENTERIC COATED) 81 mg EC tablet Take 81 mg by mouth once daily. - fluticasone (FLONASE) 50 mcg/actuation nasal spray Use 1 [place] in each nostril twice daily. Rinse mouth after use. - Blood Pressure Monitor kit 1 application twice daily. Measure patient for correct size. Patient needs cuff for left arm readings. - COMPOUNDED PRESCRIPTION Articulating AFO foot brace for right leg. Send to [employer]. Dx: I63.9 - COMPOUNDED PRESCRIPTION EMBER WALKER DX I63.9 weight 162 # Problem List As Of Date 05/28/2024 Noted Resolved Hyperlipidemia [E78.5] 06/06/2010 Elevated blood pressure [VDG4739] 06/06/2010 03/20/2019 Erectile dysfunction [N52.9] 06/06/2010 Cervicalgia [M54.2] 04/16/2016 Chronic right shoulder pain [M25.511, G89.29] 04/16/2016 Occlusion of left carotid artery [I65.22] 07/02/2016 Stroke (cerebrum) (HCC) [I63.9] Aneurysm (HCC) [I72.9] Essential hypertension [I10] 06/25/2017 Anxiety [F41.9] 09/04/2017 Chronic insomni (more content not included)... Normal [facility] Orthopedic Visit Reporton Orthopedic Visit Report [facility] [address] [place] [address] OFFICE VISIT Date of Service: 05/28/24 MR#: [id number] Acct: [id number] Name: AFSHIN ZEE Rep #: [id number] : 1955 Provider: Dr. Davin ba MD Age/Sex: 68/M Location: [facility] Status: Signed Intake Vital Signs 08/07/23 14:17 04/08/24 18:35 Height 5 ft 10 in 5 ft 10 in Intake Visit Reasons: RIGHT ANKLE Chief Complaint: ORIF RT Ankle Accompanied by: Is patient in pain?: No Allergies azithromycin (From Zithromax Z-Sacha) Allergy (Intermediate, Verified 05/28/24 15:07) Hives lisinopril Allergy (Intermediate, Verified 05/28/24 15:07) Hives and diarrhea Sulfa (Sulfonamide Antibiotics) Allergy (Verified 05/28/24 15:07) Hives Medications ???Medication ???Instructions ???Recorded ???Confirmed ???Type famotidine 20 mg tablet 20 mg PO QHS PRN PRN Gastric Reflux 12/21/16 05/28/24 History baclofen 10 mg tablet 5 mg (1/2 x 10 mg) PO TID 02/05/17 05/28/24 Rx multivitamin,tx-iron-m inerals 1 tab PO DAILY vitamin 12/04/18 05/28/24 History (Complete Multivitamin tablet) potassium chloride 10 mEq 20 meq (2 x 10 mEq) PO TID 04/19/20 05/28/24 Rx tablet,extended release potassium #90 tabs ezetimibe 10 mg tablet 10 mg PO DAILY 04/22/21 05/28/24 History escitalopram oxalate 20 mg tablet 20 mg PO DAILY antidepressant 06/11/21 05/28/24 History menthol 0.44 %-zinc oxide 20.6 % 1 applic topical TID PRN Diaper 06/17/21 05/28/24 Rx topical ointment (Calmoseptine) Rash #0 grams amiodarone 100 mg tablet 100 mg PO DAILY HEART 07/11/21 05/28/24 History albuterol sulfate 90 mcg/actuation 2 inh inhalation Q4H PRN shortness 05/29/22 05/28/24 Rx aerosol inhaler (Ventolin HFA) of breath or wheezing #18 grams IV poll #1 ea 08/07/22 05/28/24 Rx trazodone 50 mg tablet 100 mg PO QHS DEPRESSION 08/16/22 05/28/24 History miconazole nitrate 2 % topical 1 applic topical BID 14 days #15 08/17/22 05/28/24 Rx cream grams amlodipine 5 mg tablet 5 mg PO BID 11/11/22 05/28/24 History apixaban 5 mg tablet (Eliquis) 5 mg PO BID 11/11/22 05/28/24 History clopidogrel 75 mg tablet (Plavix) 75 mg PO DAILY anti platelet 11/11/22 05/28/24 History tiotropium 2.5 mcg-olodaterol 2.5 2 puff inhalation DAILY 05/29/23 05/28/24 History mcg/actuation mist for inhalation (Stiolto Respimat) albuterol sulfate 2.5 mg/3 mL 2.5 mg continuous nebulization Q6H 08/02/23 05/28/24 History (0.083 %) solution for nebulization PRN shortness of breath or wheezing aspirin 81 mg capsule 81 mg PO DAILY 08/02/23 05/28/24 History atorvastatin 40 mg tablet 40 mg PO DAILY 08/02/23 05/28/24 History ferrous sulfate 325 mg (65 mg 325 mg PO DAILY 08/02/23 05/28/24 History iron) tablet (FeroSul) losartan 25 mg tablet 25 mg PO DAILY 08/02/23 05/28/24 History metoprolol tartrate 25 mg tablet 12.5 mg PO BID 08/02/23 05/28/24 History fluticasone propionate 50 2 spray intranasal DAILY #16 grams 12/02/23 05/28/24 Rx mcg/actuation nasal spray,suspension (Flonase Allergy Relief) buspirone 15 mg tablet 15 mg PO TID 04/08/24 05/28/24 History lorazepam 1 mg tablet (Ativan) 1 - 2 mg PO Q8H PRN agitation 04/08/24 05/28/24 History Have you fallen in the past year?: No PFSH Medical History Closed right ankle fracture Wears dentures Wears glasses History of Clostridium difficile infection Anxiety Bruising Ambulates with cane Easy bruising Gastric reflux Former smoker CPAP (continuous positive airway pressure) dependence History of echocardiogram Cardiology follow-up encounter History of atrial fibrillation Bimalleolar fracture of right ankle Hypoxia History of stroke History of stroke 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 Normal [facility] Low Dose CT Lung Screeningon 05-26-[address] Lung Screening [facility] Imaging Services [address], [place] [address] Low Dose CT Lung Screening MR#: [id number] Acct: [id number] Name: AFSHIN ZEE Rep #: [id number] : 1955 M 68 From: Jorge Sharma MD PCP: Dr. Jaci Arroyo MD Status: [facility] Study: Low Dose CT Lung Screening Date of Exam: 05/26 Exam# [id number] Ordering Dr: Kimo Mcgrath MD [id number] STUDY: LOW DOSE CT LUNG CANCER SCREENING REASON FOR EXAM: Male, 68 years old. HX OF NICOTINE DEPENDENCE RADIATION DOSAGE (If Supplied By Facility): CTDIvol = ( 2.39 ) mGy, DLP = ( 81.31 ) mGycm TECHNIQUE: No contrast was administered. Low dose technique was utilized (average mAS-38 and kVp 120). 1.25 mm axial source images with a slice interval of 1.25-mm were reconstructed in lung windows. 2.5 mm axial source images with a slice interval of 2.5-mm were reconstructed in lung windows. 5.0 mm axial source images with a slice interval of 5.0-mm were reconstructed in soft tissue windows. COMPARISON: 05/22/2023 Emphysema: Right apical scarring. Mild emphysema. No noncalcified nodule or mass. Endobronchial lesion: None Aorta: Some calcified plaque in the aortic arch but no thoracic aortic aneurysm. CORONARY ARTERIES: Coronary artery calcification is seen. Heart: No cardiomegaly. Pulmonary artery: Normal Mediastinal nodes: Normal Other chest and abdominal findings: None CT/Low Dose CT Lung Screening IMPRESSION: Lung-RADS category 1 - Continue annual screening with LDCT in 12 months. IMPORTANT NOTES FOR USE: ACR Lung-RADS Version 1.1 Assessment Categories Release Date: 2018 Category: Coded 0-4 bases on nodule(s) with highest degree of suspicion. Negative screen is defined as categories 1 and 2; a positive screen is defined as categories 3 and 4. Category 3 and 4A nodules that are unchanged on interval CT should be coded as category 2, and individuals returned to screening in 12 months. Category 4X: Category 3 or 4 nodules with additional imaging findings that increase the suspicion of lung cancer, such as spiculation, GGN that doubles in size in 1 year, enlarged lymph notes, etc. Category Modifiers: S (significant finding unrelated to lung cancer) Electronically Signed: Jorge Sharma MD at 12:21 EDT , CC: Dr. Kimo Mcgrath MD; Dr. 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 She states she has already talked to Yaquelin in the PA department. She wanted to let you know if the auth is not completed by 3pm today the CT will need cancelled again. Callback number is [phone]. .JAVI Cool Kathleen, LPN 05/22/2024 1:07 PM Signed Spoke with [facility] precert. They are awaiting response from F referral department. No needs from physician at this time. Deanne Neville LPN Allergies As of Date: 05/22/2024 Noted Allergy Reaction LISINOPRIL 09/27/2016 7 - Swelling 18 - Angioedema Comments: Lip swelling after starting lisinopril. DOXYCYCLINE 12/11/2022 8 - GI Upset 14 - Other: See Comments Comments: GI upset (stomach ache/cramping/diarrhea ) and splotchy face SULFA (SULFONAMIDE ANTIBIOTICS) 03/11/2019 4 - Hives ZPAK (AZITHROMYCIN) 10/03/2018 4 - Hives Date Reviewed: 05/20/2024 Reviewed by: Michelle Webb PA-C - Fully Assessed Prescriptions as of 05/22/2024 - OXYGEN, HOME THERAPY, 4 L/min by Nasal Cannula route as directed. - busPIRone (BUSPAR) 15 mg tablet take 1 tablet by mouth three times a day - STIOLTO RESPIMAT 2.5-2.5 mcg/actuation inhaler inhale 2 puffs by mouth as directed once daily - LORazepam (ATIVAN) 1 mg tablet Take 1-2 tablets by mouth three times a day as needed for anxiety for up to 45 days. Take 1-2 pills three times a day - baclofen 10 mg tablet Take 1 tablet by mouth three times a day. - multivitamin tablet Take 1 tablet by mouth once daily. - potassium chloride (K-TAB) 10 mEq tablet Take 2 tablets by mouth three times a day. - albuterol (PROVENTIL) 2.5 mg /3 mL (0.083 %) nebulizer solution INHALE 1 VIAL VIA NEBULIZER EVERY 4 HOURS NEEDED FOR WHEEZING/SHORTNESS OF BREATH. USE OVER 5-15 MINUTES - clotrimazole-betametha sone (LOTRISONE) cream Apply to affected area two times a day. - clopidogrel (PLAVIX) 75 mg tablet Take 1 tablet by mouth once daily. - amLODIPine (NORVASC) 10 mg tablet Take 0.5 tablets by mouth two times a day. Take 1/2 tablet twice daily - ezetimibe (ZETIA) 10 mg tablet Take 1 tablet by mouth once daily. - losartan (COZAAR) 25 mg tablet Take 1 tablet by mouth once daily. - ferrous sulfate (FEROSUL) 325 mg (65 mg iron) tablet Take 1 tablet by mouth two times a day. - amiodarone (PACERONE) 100 mg tablet TAKE 1 TABLET BY MOUTH ONCE DAILY *DO NOT TAKE IF HEART RATE IS LESS THAN 40* - atorvastatin (LIPITOR) 40 mg tablet take 1 tablet by mouth once daily - escitalopram oxalate (LEXAPRO) 20 mg tablet take 1 tablet by mouth once daily - apixaban (ELIQUIS) 5 mg tab(s) take 1 tablet by mouth twice daily - metoprolol tartrate, short acting, (LOPRESSOR) 25 mg tablet TAKE 1/2 TABLET BY MOUTH TWICE DAILY. HOLD IF HEART RATE IS LESS THAN 60 - acetaminophen (TYLENOL EXTRA STRENGTH) 500 mg tablet Take 2 tablets by mouth three times a day as needed for pain. - zinc oxide 20 % ointment Apply to affected area as needed. - traZODone (DESYREL) 100 mg tablet Take 1 tablet by mouth daily at bedtime. - albuterol HFA (PROVENTIL HFA, VENTOLIN HFA) 90 mcg/actuation inhaler Inhale 2 Puffs as instructed every 4 hours as needed. - aspirin, enteric coated (ASPIRIN, ENTERIC COATED) 81 mg EC tablet Take 81 mg by mouth once daily. - fluticasone (FLONASE) 50 mcg/actuation nasal spray Use 1 [place] in each nostril twice daily. Rinse mouth after use. - Blood Pressure Monitor kit 1 application twice daily. Measure patient for correct size. Patient needs cuff for left arm readings. - COMPOUNDED PRESCRIPTION Articulating AFO foot brace for right leg. Send to [employer]. Dx: I63.9 - COMPOUNDED PRESCRIPTION EMBER WALKER DX I63.9 weight 162 # Problem List As Of Date 05/22/2024 Noted Resolved Hyperlipidemia [E78.5] 06/06/2010 Elevated blood pressure [ZOZ0871] 06/06/2010 03/20/2019 Erectile dysfunction [N52.9] 06/06/2010 Cervicalgia [M54.2] 04/16/2016 Chronic right shoulder pain [M25.511, G89.29] 04/16/2016 Occlusion of left carotid artery [I65.22] 07/02/2016 Stroke (cerebrum) (HCC) [I63.9] Aneurysm (HCC) [I72.9] Essential hypertension [I10] 06/25/2017 Anxiety [F41.9] 09/04/2017 Chronic insomnia [F51.04] 04/04/2018 Right hemiplegia (HCC) [G81.91] 04/30/2018 Bradycardia [R00.1] 03/20/2019 Dysphasia [R47.02] Coronary artery disease involving [place]*04/02/2021 Paroxysmal atrial fibrillation (HCC) [I48.0] 04/03/2021 Aphasia as late effect of cerebrovascular accid*05/10/2022 Bacterial pneumonia [J15.9] more content not included)... [facility] ([id number]) 1955 M Date Time Provider Department 05/21/24 NEUROLOGY PROVIDER HANY During your visit today, we recorded the following information about you: Sol Beasley 05/21/2024 10:40 AM Signed ENDOVASCULAR INTAKE Patient name: Afshin Zee What diagnosis are you looking to be seen for within our center? (ex: aneurysm, angioma, arteriovenous malformation, brain bleed or brain hemorrhage, cavernous malformation, carotid stenosis, fistula, [place], Vein of [place], IIH or pseudotumor, etc.) Dx: Cerebral aneurysm [I67.1 (ICD-10-CM)] Is there a specific provider who is requesting you see our center? (referring provider) Dania Aj Jr., MD Has your referring provider recommended a specific provider in our department? X Is this a second opinion? Have you been recommended for surgery or procedure for this condition? X If yes, have you scheduled this procedure at another facility? If yes, when is the procedure scheduled? Where have you had any imaging for this diagnosis in the past year? These include images such as ultrasounds, MRIs, CTs, or angiograms of the head, brain, neck, carotids, or spine. [facility] in chart Have you had any surgeries or procedures for this condition? X If yes, where was it done and when? Who performed the surgery or procedure? Does any of the following pertain to you? Family history of brain aneurysm? Father Polycystic kidney disease or other genetic kidney disease? Not applicable if chronic kidney disease. X Connective tissue disease such as fibromuscular dysplasia or Ullu-Danlos Syndrome? X Do you prefer in-person or virtual appointment? Out of state residents must be in [place] at the time of their virtual visit. Virtual will sign up Specific day of the week or time of day? Wednesdays Do you prefer to be notified of your appointment by phone or Infusionsofthart message? Phone call Thank you for speaking with me today. Your information will now be forwarded to our endovascular advance practice provider team to review and provide scheduling recommendations. Please allow 3 business days to hear back from us. If you do not, feel free to call back [phone] for an update. Sol Beasley 05/21/2024 4:33 PM Signed Called pt and left VM with appointment details [facility] 05/22/2024 9:48 AM Signed Mrs. Zee is calling to say they prefer to see a surgeon instead on FOIL WRAPPER. She is scheduled with [facility] as a virtual visit. Would still prefer virtual visit but only with staff surgeon. Please call Eli at [phone]. Milly Armendariz 05/25/2024 8:22 AM Addendum 05.22.24 9:47am Mrs. Zee LVM on intake line stating that her is setup to see an FOIL WRAPPER on July 06, yet VM left for them by Sol states if anything was found, they would be referred to a neurosurgeon. They prefer not to wait any longer to get seen/placed with a neurosurgeon and she prefers that patients be seen by neurosurgeon virtually instead. Allergies As of Date: 05/21/2024 Noted Allergy Reaction LISINOPRIL 09/27/2016 7 - Swelling 18 - Angioedema Comments: Lip swelling after starting lisinopril. DOXYCYCLINE 12/11/2022 8 - GI Upset 14 - Other: See Comments Comments: GI upset (stomach ache/cramping/diarrhea ) and splotchy face SULFA (SULFONAMIDE ANTIBIOTICS) 03/11/2019 4 - Hives ZPAK (AZITHROMYCIN) 10/03/2018 4 - Hives Date Reviewed: 05/20/2024 Reviewed by: Michelle Webb PA-C - Fully Assessed Reason for Visit: Future Appointment [[id number]] Cmt: [facility] any Prescriptions as of 05/27/2024 - OXYGEN, HOME THERAPY, 4 L/min by Nasal Cannula route as directed. - busPIRone (BUSPAR) 15 mg tablet take 1 tablet by mouth three times a day - STIOLTO RESPIMAT 2.5-2.5 mcg/actuation inhaler inhale 2 puffs by mouth as directed once daily - LORazepam (ATIVAN) 1 mg tablet Take 1-2 tablets by mouth three times a day as needed for anxiety for up to 45 days. Take 1-2 pills three times a day - baclofen 10 mg tablet Take 1 tablet by mouth three times a day. - multivitamin tablet Take 1 tablet by mouth once daily. - potassium chloride (K-TAB) 10 mEq tablet Take 2 tablets by mouth three times a day. - albuterol (PROVENTIL) 2.5 mg /3 mL (0.083 %) nebulizer solution INHALE 1 VIAL VIA NEBULIZER EVERY 4 HOURS NEEDED FOR WHEEZING/SHORTNESS OF BREATH. USE OVER 5-15 MINUTES - clotrimazole-betametha sone (LOTRISONE) cream Apply to affected area two times a day. - clopidogrel (PLAVIX) 75 mg tablet Take 1 tablet by mouth once daily. - amLODIPine (NORVASC) 10 mg tablet Take 0.5 tablets by mouth two times a day. Take 1/2 tablet twice daily - ezetimibe (ZETIA) 10 mg tablet Take 1 tablet by mouth once daily. - losartan (COZAAR) 25 mg tablet Take 1 tablet by mouth once daily. - ferrous sulfate (FEROSUL) 325 mg (65 (more content not included)... Normal [facility] CNOVon 05-20-2024 CNOV Office Visit (RITIKA ) AFSHIN ZEE ([id number]) 1955 M Date Time Provider Department 05/20/24 9:30 AM MICHELLE WEBB During your visit today, we recorded the following information about you: Pulse Respiration Blood pressure Weight 54/minute 18/minute 126/77 84.1 kg Michelle Webb PA-C 05/20/2024 10:22 AM Signed ESTABLISHED PATIENT VISIT Last visit: 03/09/[address] Aj ASSESSMENT/PLAN: 1. History of stroke - ICD9: V12.54, ICD10: Z86.73 (primary diagnosis) 2. Left carotid artery occlusion - ICD9: 433.10, ICD10: I65.22 3. Stenosis of left subclavian artery (HCC) - ICD9: 447.1, ICD10: I77.1 4. History of obstructive sleep apnea - ICD9: 327.23, ICD10: Z86.69 5. History of atrial fibrillation - ICD9: V12.59, ICD10: Z86.79 6. History of coronary artery bypass, five - ICD9: V15.1, ICD10: Z95.1 7. 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 Spasticity - ICD9: 781.0, ICD10: R25.2 9. Altered mental status, unspecified altered mental status type - ICD9: 780.97, ICD10: R41.82 Patient with known history of large L cerebral infract impacting most of the LMCA distribution on review of MRI brain images from 2018. Patient with known and prior documented deficits of R side weakness and spasticity as well as aphasia. That said, prior aphasia was noted to be expressive in notes I reviewed and at this time patient with both expressive and receptive features raising question of whether additional strokes may have occurred since that in 2018. Discussed with patient and his . I feel appropriate to evaluate with MRI brain as well as MRA head and neck, with the latter being used to evaluate for progression of carotid disease and intracranial vessel disease as well. As for current stroke treatment, patient already on anticoagulation and DAPT due cardiac disease and PVD. No changes will be made. Also on statin with LDL confirmed to be <70 in 2023. No history of DM. Goal glucose and BP <140/90. Encouraged follow up with sleep for alternative therapies for DARON. Will refer to PMR for evaluation of whether pt might benefit from botox therapy for spasticity in RUE. Finally with pt having reported staring off spells and with history of large cortical stroke, will get EEG to evaluate for possible seizure activity. Pt will follow up after workup complete. Dania Aj MD CHIEF COMPLAINT: follow up HISTORY OF PRESENT ILLNESS: Afshin Zee is a 68 year old male, There were no vitals taken for this visit. with a PMH significant for stroke, insomnia, right hemiaplasia, dysphagia, aphasia, hyperlipidemia, aneurysm, hypertension, CAD, atrial fibrillation, CKD stage III. Pt seen on 03/09/24 for stroke hx, on DAPT and on anticoag. Chronic R sided weakness and expressive aphasia, however, having receptive issues in office so repeat MRI ordered along with MRA head and neck, this showed aneurysm. Sent to PMR for spasticity, ordered EEG for staring off spells (scheduled in July). No new strokes. Patient presents with his and caregiver to review results. No new concerns today, no falls, doing well with exercise at home with his decaler. Compliant with his medications at this time. Does report that he has occasional staring off episodes, but decaler states that he is always distractible when this occurs, happens when he is looking at the window and when she calls his name he looks over to her. REVIEW OF SYSTEMS GENERAL:No weight loss, malaise or fevers. HEENT:Negative for frequent or significant headaches, No changes in hearing or vision, no nose bleeds or other nasal problems NECK:Negative for lumps, goiter, pain and significant neck swelling RESPIRATORY: Negative for cough, wheezing or shortness of breath. CARDIOVASCULAR: Negative for chest pain, leg swelling or palpitations. GASTROINTESTINAL: Negative for abdominal discomfort, blood in stools or black stools or change in bowel habits GENITOURINARY: No history of dysuria, frequency or incontinence MUSCULOSKELETAL: Negative for joint pain or swelling, back pain or muscle pain. NEUROLOGIC:Negative for focal numbness or weakness, headaches and dizziness or syncope, vision changes, speech/languag changes - EXCEPT that as per HPI above. SKIN:Negative for lesions, rash, and itching. PSYCHIATRIC: Negative for sleep disturbance, mood disorder and recent psychosocial stressors. HEMATOLOGIC/LYMPHATIC/ IMMUNOLOGIC:Negative for prolonged bleeding, bruising easily or swollen nodes. ENDOCRINE: Negative for cold or heat intolerance, polyuria, polydipsia and goiter. The remainder of the ROS was reviewed and is negative. LAB/IMAGING: Those performed since patient's last visit have been reviewed. MRI brain, MRA brain 05/07/24 IMPRESSION: Evolution of now remote large left MCA territory infarct with progressive gliosis and volume (more content not included)... Normal [facility] 05-14-2024 [facility] Telephone (FAMPWS) AFSHIN ZEE ([id number]) 1955 M Date Time Provider Department 05/14/24 JACI ARROYO [facility] During your visit today, we recorded the following information about you: Loida Vazquez LPN 05/14/2024 2:25 PM Signed Flaquita from [facility] [place] calling asking for order for oxygen for the patient to have set up in [place] on 05/22 for several days. She can not tell me if he is going to have testing or vacationing there. The original provider who ordered his oxygen back in 2021 was Earl Pate from [employer]. She is asking for orders to be faxed to [phone]. She is going to reach out and talk to patient to find out more information about this trip. Please advise Jaci Arroyo MD 05/14/2024 4:39 PM Signed Order printed MD Marcio Mathew Rilee, MA 05/14/2024 4:46 PM Signed Order on PCP's desk to sign. JIMI Blas Kathryn, MA 05/14/2024 4:54 PM Signed Faxed. Monica Cruz MA Allergies As of Date: 05/14/2024 Noted Allergy Reaction LISINOPRIL 09/27/2016 7 - Swelling 18 - Angioedema Comments: Lip swelling after starting lisinopril. DOXYCYCLINE 12/11/2022 8 - GI Upset 14 - Other: See Comments Comments: GI upset (stomach ache/cramping/diarrhea ) and splotchy face SULFA (SULFONAMIDE ANTIBIOTICS) 03/11/2019 4 - Hives ZPAK (AZITHROMYCIN) 10/03/2018 4 - Hives Date Reviewed: 04/03/2024 Reviewed by: Monica Cruz MA - Fully Assessed Reason for Visit: Orders [681] Primary Visit Diagnosis:Centrilobula r emphysema (HCC) [J43.2] Other Visit Diagnosis:Chronic respiratory failure with hypoxia (HCC) [J96.11] Order(s):OXYGEN, HOME THERAPY,4 L/min by Nasal Cannula route as directed.Disp: 1 EachRfl: 0 Prescriptions as of 05/14/2024 - OXYGEN, HOME THERAPY, 4 L/min by Nasal Cannula route as directed. - busPIRone (BUSPAR) 15 mg tablet take 1 tablet by mouth three times a day - STIOLTO RESPIMAT 2.5-2.5 mcg/actuation inhaler inhale 2 puffs by mouth as directed once daily - LORazepam (ATIVAN) 1 mg tablet Take 1-2 tablets by mouth three times a day as needed for anxiety for up to 45 days. Take 1-2 pills three times a day - baclofen 10 mg tablet Take 1 tablet by mouth three times a day. - multivitamin tablet Take 1 tablet by mouth once daily. - potassium chloride (K-TAB) 10 mEq tablet Take 2 tablets by mouth three times a day. - albuterol (PROVENTIL) 2.5 mg /3 mL (0.083 %) nebulizer solution INHALE 1 VIAL VIA NEBULIZER EVERY 4 HOURS NEEDED FOR WHEEZING/SHORTNESS OF BREATH. USE OVER 5-15 MINUTES - clotrimazole-betametha sone (LOTRISONE) cream Apply to affected area two times a day. - clopidogrel (PLAVIX) 75 mg tablet Take 1 tablet by mouth once daily. - amLODIPine (NORVASC) 10 mg tablet Take 0.5 tablets by mouth two times a day. Take 1/2 tablet twice daily - ezetimibe (ZETIA) 10 mg tablet Take 1 tablet by mouth once daily. - losartan (COZAAR) 25 mg tablet Take 1 tablet by mouth once daily. - ferrous sulfate (FEROSUL) 325 mg (65 mg iron) tablet Take 1 tablet by mouth two times a day. - amiodarone (PACERONE) 100 mg tablet TAKE 1 TABLET BY MOUTH ONCE DAILY *DO NOT TAKE IF HEART RATE IS LESS THAN 40* - atorvastatin (LIPITOR) 40 mg tablet take 1 tablet by mouth once daily - escitalopram oxalate (LEXAPRO) 20 mg tablet take 1 tablet by mouth once daily - apixaban (ELIQUIS) 5 mg tab(s) take 1 tablet by mouth twice daily - metoprolol tartrate, short acting, (LOPRESSOR) 25 mg tablet TAKE 1/2 TABLET BY MOUTH TWICE DAILY. HOLD IF HEART RATE IS LESS THAN 60 - acetaminophen (TYLENOL EXTRA STRENGTH) 500 mg tablet Take 2 tablets by mouth three times a day as needed for pain. - zinc oxide 20 % ointment Apply to affected area as needed. - traZODone (DESYREL) 100 mg tablet Take 1 tablet by mouth daily at bedtime. - albuterol HFA (PROVENTIL HFA, VENTOLIN HFA) 90 mcg/actuation inhaler Inhale 2 Puffs as instructed every 4 hours as needed. - aspirin, enteric coated (ASPIRIN, ENTERIC COATED) 81 mg EC tablet Take 81 mg by mouth once daily. - fluticasone (FLONASE) 50 mcg/actuation nasal spray Use 1 [place] in each nostril twice daily. Rinse mouth after use. - Blood Pressure Monitor kit 1 application twice daily. Measure patient for correct size. Patient needs cuff for left arm readings. - COMPOUNDED PRESCRIPTION Articulating AFO foot brace for right leg. Send to [employer]. Dx: I63.9 - COMPOUNDED PRESCRIPTION EMBER WALKER DX I63.9 weight 162 # Problem List As Of Date 05/14/2024 Noted Resolved Hyperlipidemia [E78.5] 06/06/2010 Elevated blood pressure [GQB6543] 06/06/2010 03/20/2019 Erectile dysfunction [N52.9] 06/06/2010 Cervicalgia [M54.2] 04/16/2016 Chronic right shoulder pain [M25.511, G89.29] 04/16/2016 Occlusion of left carotid artery [I65.22] 07/02/2016 Stroke (cerebrum) (HCC) [I63.9] Aneurysm (HC (more content not included)... [facility] AFSHIN ZEE ([id number]) 1955 M Date Time Provider Department 05/14/24 KIMO MCGRATH [facility] During your visit today, we recorded the following information about you: Kia Waters LPN 05/14/2024 4:37 PM Signed Flaquita from [facility]. She is asking for updated oxygen orders to be faxed to as patient is planning to go out of town. JAVI Wadsworth Laurie, MA 05/15/2024 11:45 AM Signed PCP ordered. Therese Casas MA Allergies As of Date: 05/14/2024 Noted Allergy Reaction LISINOPRIL 09/27/2016 7 - Swelling 18 - Angioedema Comments: Lip swelling after starting lisinopril. DOXYCYCLINE 12/11/2022 8 - GI Upset 14 - Other: See Comments Comments: GI upset (stomach ache/cramping/diarrhea ) and splotchy face SULFA (SULFONAMIDE ANTIBIOTICS) 03/11/2019 4 - Hives ZPAK (AZITHROMYCIN) 10/03/2018 4 - Hives Date Reviewed: 04/03/2024 Reviewed by: Monica Cruz MA - Fully Assessed Reason for Visit: Orders [681] Prescriptions as of 05/15/2024 - OXYGEN, HOME THERAPY, 4 L/min by Nasal Cannula route as directed. - busPIRone (BUSPAR) 15 mg tablet take 1 tablet by mouth three times a day - STIOLTO RESPIMAT 2.5-2.5 mcg/actuation inhaler inhale 2 puffs by mouth as directed once daily - LORazepam (ATIVAN) 1 mg tablet Take 1-2 tablets by mouth three times a day as needed for anxiety for up to 45 days. Take 1-2 pills three times a day - baclofen 10 mg tablet Take 1 tablet by mouth three times a day. - multivitamin tablet Take 1 tablet by mouth once daily. - potassium chloride (K-TAB) 10 mEq tablet Take 2 tablets by mouth three times a day. - albuterol (PROVENTIL) 2.5 mg /3 mL (0.083 %) nebulizer solution INHALE 1 VIAL VIA NEBULIZER EVERY 4 HOURS NEEDED FOR WHEEZING/SHORTNESS OF BREATH. USE OVER 5-15 MINUTES - clotrimazole-betametha sone (LOTRISONE) cream Apply to affected area two times a day. - clopidogrel (PLAVIX) 75 mg tablet Take 1 tablet by mouth once daily. - amLODIPine (NORVASC) 10 mg tablet Take 0.5 tablets by mouth two times a day. Take 1/2 tablet twice daily - ezetimibe (ZETIA) 10 mg tablet Take 1 tablet by mouth once daily. - losartan (COZAAR) 25 mg tablet Take 1 tablet by mouth once daily. - ferrous sulfate (FEROSUL) 325 mg (65 mg iron) tablet Take 1 tablet by mouth two times a day. - amiodarone (PACERONE) 100 mg tablet TAKE 1 TABLET BY MOUTH ONCE DAILY *DO NOT TAKE IF HEART RATE IS LESS THAN 40* - atorvastatin (LIPITOR) 40 mg tablet take 1 tablet by mouth once daily - escitalopram oxalate (LEXAPRO) 20 mg tablet take 1 tablet by mouth once daily - apixaban (ELIQUIS) 5 mg tab(s) take 1 tablet by mouth twice daily - metoprolol tartrate, short acting, (LOPRESSOR) 25 mg tablet TAKE 1/2 TABLET BY MOUTH TWICE DAILY. HOLD IF HEART RATE IS LESS THAN 60 - acetaminophen (TYLENOL EXTRA STRENGTH) 500 mg tablet Take 2 tablets by mouth three times a day as needed for pain. - zinc oxide 20 % ointment Apply to affected area as needed. - traZODone (DESYREL) 100 mg tablet Take 1 tablet by mouth daily at bedtime. - albuterol HFA (PROVENTIL HFA, VENTOLIN HFA) 90 mcg/actuation inhaler Inhale 2 Puffs as instructed every 4 hours as needed. - aspirin, enteric coated (ASPIRIN, ENTERIC COATED) 81 mg EC tablet Take 81 mg by mouth once daily. - fluticasone (FLONASE) 50 mcg/actuation nasal spray Use 1 [place] in each nostril twice daily. Rinse mouth after use. - Blood Pressure Monitor kit 1 application twice daily. Measure patient for correct size. Patient needs cuff for left arm readings. - COMPOUNDED PRESCRIPTION Articulating AFO foot brace for right leg. Send to [employer]. Dx: I63.9 - COMPOUNDED PRESCRIPTION EMBER WALKER DX I63.9 weight 162 # Problem List As Of Date 05/14/2024 Noted Resolved Hyperlipidemia [E78.5] 06/06/2010 Elevated blood pressure [NLQ3459] 06/06/2010 03/20/2019 Erectile dysfunction [N52.9] 06/06/2010 Cervicalgia [M54.2] 04/16/2016 Chronic right shoulder pain [M25.511, G89.29] 04/16/2016 Occlusion of left carotid artery [I65.22] 07/02/2016 Stroke (cerebrum) (HCC) [I63.9] Aneurysm (HCC) [I72.9] Essential hypertension [I10] 06/25/2017 Anxiety [F41.9] 09/04/2017 Chronic insomnia [F51.04] 04/04/2018 Right hemiplegia (HCC) [G81.91] 04/30/2018 Bradycardia [R00.1] 03/20/2019 Dysphasia [R47.02] Coronary artery disease involving [place]*04/02/2021 Paroxysmal atrial fibrillation (HCC) [I48.0] 04/03/2021 Aphasia as late effect of cerebrovascular accid*05/10/2022 Bacterial pneumonia [J15.9] 11/17/2022 03/12/2023 Tracheostomy status (HCC) [Z93.0] 12/04/2022 02/26/2023 Respiratory failure, unspecified chronicity, un*03/07/2023 03/12/2023 Stage 3a chronic kidney disease (HCC) [N18.31] 03/07/2023 COPD with exacerbation (HCC) [J44.1] 03/12/2023 03/12/2023 Centrilobular emphysema (HCC) [J (more content not included)... Normal [facility] 05-08-2024 [facility] Telephone (RITIKA) AFSHIN ZEE ([id number]) 1955 M Date Time Provider Department 05/08/24 DANIA AJ JR During your visit today, we recorded the following information about you: Eliana Grigsby LPN 05/08/2024 8:11 AM Signed ----- Message from Dania Aj MD sent at 05/07/2024 3:59 PM EDT ----- Please try to get in sooner with neur RIGO to go over results of study. There is a reported small aneurysm noted on MRA brain. 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 Regarding aneurysm, and given patient on both anticoagulation and antiplt, feel appropriate to be seen by neurosurgery. If pt agrees, will place consult. MD Keo MarieAmaya Barrera 05/08/2024 9:55 AM Signed Spoke to spouse and scheduled patient with Kaylan for 05/20 and spouse is requesting a return with results prior to office visit. Milan Brunson RN 05/08/2024 10:33 AM Signed Patient phoned for results from Dr. Aj and given message below. Patient asking what s/s should she pay attention to, to let her know she should call squad, advised CP, [place], change in mental status, SOB, fever, elevated BP-get at least 2 readings of >160/>100 with symptoms. verbalized understanding. asking if 05-20-24 is soon enough for patient's appt with Digital Service Engineer? Please advise . Dania Aj Jr., MD 05/08/2024 12:19 PM Signed Neurosurgery consult placed. Mayela Mcgrath LPN 05/08/2024 12:25 PM Signed Yes 05/20/24 will be ok. Mayela Mcgrath LPN May 08, 2024 12:25 PM Allergies As of Date: 05/08/2024 Noted Allergy Reaction LISINOPRIL 09/27/2016 7 - Swelling 18 - Angioedema Comments: Lip swelling after starting lisinopril. DOXYCYCLINE 12/11/2022 8 - GI Upset 14 - Other: See Comments Comments: GI upset (stomach ache/cramping/diarrhea ) and splotchy face SULFA (SULFONAMIDE ANTIBIOTICS) 03/11/2019 4 - Hives ZPAK (AZITHROMYCIN) 10/03/2018 4 - Hives Date Reviewed: 04/03/2024 Reviewed by: Monica Cruz MA - Fully Assessed Reason for Visit: Results [95] Primary Visit Diagnosis:Cerebral aneurysm [I67.1] Order(s):CONSULT TO NEUROSURGERY [[id number]] Order #: [id number]: 1 FUTURE Prescriptions as of 05/08/2024 - STIOLTO RESPIMAT 2.5-2.5 mcg/actuation inhaler inhale 2 puffs by mouth as directed once daily - busPIRone (BUSPAR) 15 mg tablet Take 1 tablet by mouth three times a day. - LORazepam (ATIVAN) 1 mg tablet Take 1-2 tablets by mouth three times a day as needed for anxiety for up to 45 days. Take 1-2 pills three times a day - baclofen 10 mg tablet Take 1 tablet by mouth three times a day. - multivitamin tablet Take 1 tablet by mouth once daily. - potassium chloride (K-TAB) 10 mEq tablet Take 2 tablets by mouth three times a day. - albuterol (PROVENTIL) 2.5 mg /3 mL (0.083 %) nebulizer solution INHALE 1 VIAL VIA NEBULIZER EVERY 4 HOURS NEEDED FOR WHEEZING/SHORTNESS OF BREATH. USE OVER 5-15 MINUTES - clotrimazole-betametha sone (LOTRISONE) cream Apply to affected area two times a day. - clopidogrel (PLAVIX) 75 mg tablet Take 1 tablet by mouth once daily. - amLODIPine (NORVASC) 10 mg tablet Take 0.5 tablets by mouth two times a day. Take 1/2 tablet twice daily - ezetimibe (ZETIA) 10 mg tablet Take 1 tablet by mouth once daily. - losartan (COZAAR) 25 mg tablet Take 1 tablet by mouth once daily. - ferrous sulfate (FEROSUL) 325 mg (65 mg iron) tablet Take 1 tablet by mouth two times a day. - amiodarone (PACERONE) 100 mg tablet TAKE 1 TABLET BY MOUTH ONCE DAILY *DO NOT TAKE IF HEART RATE IS LESS THAN 40* - atorvastatin (LIPITOR) 40 mg tablet take 1 tablet by mouth once daily - escitalopram oxalate (LEXAPRO) 20 mg tablet take 1 tablet by mouth once daily - apixaban (ELIQUIS) 5 mg tab(s) take 1 tablet by mouth twice daily - metoprolol tartrate, short acting, (LOPRESSOR) 25 mg tablet TAKE 1/2 TABLET BY MOUTH TWICE DAILY. HOLD IF HEART RATE IS LESS THAN 60 - acetaminophen (TYLENOL EXTRA STRENGTH) 500 mg tablet Take 2 tablets by mouth three times a day as needed for pain. - zinc oxide 20 % ointment Apply to affected area as needed. - traZODone (DESYREL) 100 mg tablet Take 1 tablet by mouth daily at bedtime. - albuterol HFA (PROVENTIL HFA, VENTOLIN HFA) 90 mcg/actuation inhaler Inhale 2 Puffs as instructed every 4 hours as needed. - aspirin, enteric coated (ASPIRIN, ENTERIC COATED) 81 mg EC tablet Take 81 mg by mouth once daily. - fluticasone (FLONASE) 50 mcg/actuation nasal spray Use 1 [place] in each nostril twice daily. Rinse mouth after use. - Blood Pressure Monitor kit 1 application twice daily. Measure patient for correct size. Patient needs cuff for left arm readings. - COMPOUNDED PRESCRIPTION Articulating AFO foot brace for right leg. Send to [employer]. Dx: I63.9 - COMPOUNDED PRESCRIPTION EMBER WALKER DX I63.9 we (more content not included)... Normal [facility] MR Brain WO contraston 05-07 * * *Final Report* * * DATE OF EXAM: May 07 2024 2:20PM [facility] 0294 - MRI BRAIN WO IVCON / PROCEDURE REASON: multiple diagnoses * * * * Physician Interpretation * * * * EXAMINATION: MRA BRAIN WO IVCON, MRI BRAIN WO IVCON, MRA CAROTID WO IVCON CLINICAL HISTORY: History of left MCA territory infarct in 2017 with concern for interval strokes. TECHNIQUE: Routine noncontrast MRI brain protocol including diffusion and gradient echo images. Intracranial and carotid 3D [id number] MRA with post-processing performed at the modality and 2D multiplanar and 3D maximum intensity projections were created, reviewed and archived. MQ: MRAB_4 COMPARISON: CT brain 11/22/2016, MRI brain 11/03/2018 RESULT: BRAIN: Acute Change: There is no evidence of restricted diffusion to suggest an acute infarct. Hemorrhage: Scattered areas of susceptibility along the margins of the left MCA territory infarct, likely secondary to prior petechial hemorrhage. Mass Lesion/ Mass Effect: No evidence of an intracranial mass or extra-axial fluid collection. No significant mass effect. Chronic Change: Evolution of large left MCA territory infarct with extensive gliosis and volume loss throughout the majority of the left MCA territory with relative sparing of the left temporal pole. There is evidence of interval asymmetry infarct. In the right cerebral hemisphere, scattered patchy areas of increased T2 and FLAIR signal likely reflect mild to moderate chronic microvascular ischemia. Parenchyma: No significant volume loss for age. Ventricles: Normal caliber and morphology except for ex vacuo dilation of the left lateral ventricle. Skull Base: Hypothalamic and pituitary region are grossly normal. Craniocervical junction is normal. No significant marrow replacement process. Vasculature: Absent flow void in the left ICA with recovery of flow void in the left MCA. Other intracranial arterial structures, and dural venous sinuses show typical flow void, suggesting patency by spin echo criteria. Other: The visualized paranasal sinuses and mastoid air cells are clear. The orbits and extracranial soft tissues are unremarkable. Intracranial MRA: Anterior Circulation: The right distal ICA is patent and within normal limits of caliber and configuration. There is absent signal in the left ICA suggesting occlusion. The proximal ACAs are patent with normal caliber and configuration. The right MCA is patent and within normal limits of caliber and configuration. There is relatively decreased signal and caliber of the left MCA, which appears to be supplied by patent left A1 segment and left P-comm. 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 (100:141 and adjacent contiguous images for reference). When viewed on the 3-dimensional projections, there is the suggestion that this could represent an infundibulum, but there is an adjacent small vessel which appears separate from the dome of this saccular aneurysm which overlaps the aneurysm on 3-D projections. When viewed in the axial plane on series 100, the aneurysm is just anterior to this small pericallosal branch vessel arising from the anterior communicating artery. Posterior Circulation: The visualized distal vertebral and basilar arteries are patent and within normal limits of caliber and configuration. The bilateral AICAs and SCAs are visualized proximally. The proximal is technician are within normal limits of caliber and configuration. There is no evidence of focal, significant stenosis, abrupt vessel occlusion or aneurysm in the visualized vessels. Extracranial carotid MRA: Carotid Stenosis: Right Common: No significant stenosis. Right Internal Plaque: No significant plaque formation. Right Internal Carotid Stenosis (% by NASCET Criteria): 0 Left Common: No significant stenosis. Left Internal Carotid Plaque: There is complete loss of signal in the internal carotid artery immediately after the bifurcation of the left common carotid artery, compatible with occlusion. Left Internal Carotid Stenosis (% by NASCET Criteria): 100% Cervical Vertebral Arteries: Patency: Bilateral Dominance: Codominant DIVISION OF RADIOLOGY Provider, Nadeem Fair [facility] - 05/07/2024 * * *Final Report* * * DATE OF EXAM: May 07 2024 2:20PM [facility] 0294 - MRI BRAIN WO IVCON / PROCEDURE REASON: multiple diagnoses * * * * Physician Interpretation * * * * EXAMINATION: MRA BRAIN WO IVCON, MRI BRAIN WO IVCON, MRA CAROTID WO IVCON CLINICAL HISTORY: History of left MCA territory infarct in 2017 with concern for interval strokes. TECHNIQUE: Routine noncontrast MRI brain protocol including diffusion and gradient echo images. Intracranial and carotid 3D [id number] MRA with post-processing performed at the modality and 2D multiplanar and 3D maximum intensity projections were created, reviewed and archived. MQ: MRAB_4 COMPARISON: CT brain 11/22/2016, MRI brain 11/03/2018 RESULT: BRAIN: Acute Change: There is no evidence of restricted diffusion to suggest an acute infarct. Hemorrhage: Scattered areas of susceptibility along the margins of the left MCA territory infarct, likely secondary to prior petechial hemorrhage. Mass Lesion/ Mass Effect: No evidence of an intracranial mass or extra-axial fluid collection. No significant mass effect. Chronic Change: Evolution of large left MCA territory infarct with extensive gliosis and volume loss throughout the majority of the left MCA territory with relative sparing of the left temporal pole. There is evidence of interval asymmetry infarct. In the right cerebral hemisphere, scattered patchy areas of increased T2 and FLAIR signal likely reflect mild to moderate chronic microvascular ischemia. Parenchyma: No significant volume loss for age. Ventricles: Normal caliber and morphology except for ex vacuo dilation of the left lateral ventricle. Skull Base: Hypothalamic and pituitary region are grossly normal. Craniocervical junction is normal. No significant marrow replacement process. Vasculature: Absent flow void in the left ICA with recovery of flow void in the left MCA. Other intracranial arterial structures, and dural venous sinuses show typical flow void, suggesting patency by spin echo criteria. Other: The visualized paranasal sinuses and mastoid air cells are clear. The orbits and extracranial soft tissues are unremarkable. Intracranial MRA: Anterior Circulation: The right distal ICA is patent and within normal limits of caliber and configuration. There is absent signal in the left ICA suggesting occlusion. The proximal ACAs are patent with normal caliber and configuration. The right MCA is patent and within normal limits of caliber and configuration. There is relatively decreased signal and caliber of the left MCA, which appears to be supplied by patent left A1 segment and left P-comm. 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 (100:141 and adjacent contiguous images for reference). When viewed on the 3-dimensional projections, there is the suggestion that this could represent an infundibulum, but there is an adjacent small vessel which appears separate from the dome of this saccular aneurysm which overlaps the aneurysm on 3-D projections. When viewed in the axial plane on series 100, the aneurysm is just anterior to this small pericallosal branch vessel arising from the anterior communicating artery. Posterior Circulation: The visualized distal vertebral and basilar arteries are patent and within normal limits of caliber and configuration. The bilateral AICAs and SCAs are visualized proximally. The proximal is technician are within normal limits of caliber and configuration. There is no evidence of focal, significant stenosis, abrupt vessel occlusion or aneurysm in the visualized vessels. Extracranial carotid MRA: Carotid Stenosis: Right Common: No significant stenosis. Right Internal Plaque: No significant plaque formation. Right Internal Carotid Stenosis (% by NASCET Criteria): 0 Left Common: No significant stenosis. Left Internal Carotid Plaque: There is complete loss of signal in the internal carotid artery immediately after the bifurcation of the left common carotid artery, compatible with occlusion. Left Internal Carotid Stenosis (% by NASCET Criteria): 100% Cervical Vertebral Arteries: Patency: Bilateral Dominance: Codominant IMPRESSION IMPRESSION: Evolution of now remote large left MCA territory infarct with progressive gliosis and volume loss compared to 11/10/2016. No acute findings on today's exam. 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 There is reconstitution of the left MCA via collateral flow via the left JENNIFER and left posterior communicating a (more content not included)... [facility] MRA BRAIN WO IVCONon 10-03-2 024 MRA BRAIN WO IVCON * * *Final Report* * * DATE OF EXAM: May 07 2024 2:20PM [facility] 0272 - MRA BRAIN WO IVCON / PROCEDURE REASON: multiple diagnoses * * * * Physician Interpretation * * * * EXAMINATION: MRA BRAIN WO IVCON, MRI BRAIN WO IVCON, MRA CAROTID WO IVCON CLINICAL HISTORY: History of left MCA territory infarct in 2017 with concern for interval strokes. TECHNIQUE: Routine noncontrast MRI brain protocol including diffusion and gradient echo images. Intracranial and carotid 3D [id number] MRA with post-processing performed at the modality and 2D multiplanar and 3D maximum intensity projections were created, reviewed and archived. MQ: MRAB_4 COMPARISON: CT brain 11/22/2016, MRI brain 11/03/2018 RESULT: BRAIN: Acute Change: There is no evidence of restricted diffusion to suggest an acute infarct. Hemorrhage: Scattered areas of susceptibility along the margins of the left MCA territory infarct, likely secondary to prior petechial hemorrhage. Mass Lesion/ Mass Effect: No evidence of an intracranial mass or extra-axial fluid collection. No significant mass effect. Chronic Change: Evolution of large left MCA territory infarct with extensive gliosis and volume loss throughout the majority of the left MCA territory with relative sparing of the left temporal pole. There is evidence of interval asymmetry infarct. In the right cerebral hemisphere, scattered patchy areas of increased T2 and FLAIR signal likely reflect mild to moderate chronic microvascular ischemia. Parenchyma: No significant volume loss for age. Ventricles: Normal caliber and morphology except for ex vacuo dilation of the left lateral ventricle. Skull Base: Hypothalamic and pituitary region are grossly normal. Craniocervical junction is normal. No significant marrow replacement process. Vasculature: Absent flow void in the left ICA with recovery of flow void in the left MCA. Other intracranial arterial structures, and dural venous sinuses show typical flow void, suggesting patency by spin echo criteria. Other: The visualized paranasal sinuses and mastoid air cells are clear. The orbits and extracranial soft tissues are unremarkable. Intracranial MRA: Anterior Circulation: The right distal ICA is patent and within normal limits of caliber and configuration. There is absent signal in the left ICA suggesting occlusion. The proximal ACAs are patent with normal caliber and configuration. The right MCA is patent and within normal limits of caliber and configuration. There is relatively decreased signal and caliber of the left MCA, which appears to be supplied by patent left A1 segment and left P-comm. 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 (100:141 and adjacent contiguous images for reference). When viewed on the 3-dimensional projections, there is the suggestion that this could represent an infundibulum, but there is an adjacent small vessel which appears separate from the dome of this saccular aneurysm which overlaps the aneurysm on 3-D projections. When viewed in the axial plane on series 100, the aneurysm is just anterior to this small pericallosal branch vessel arising from the anterior communicating artery. Posterior Circulation: The visualized distal vertebral and basilar arteries are patent and within normal limits of caliber and configuration. The bilateral AICAs and SCAs are visualized proximally. The proximal is technician are within normal limits of caliber and configuration. There is no evidence of focal, significant stenosis, abrupt vessel occlusion or aneurysm in the visualized vessels. Extracranial carotid MRA: Carotid Stenosis: Right Common: No significant stenosis. Right Internal Plaque: No significant plaque formation. Right Internal Carotid Stenosis (% by NASCET Criteria): 0 Left Common: No significant stenosis. Left Internal Carotid Plaque: There is complete loss of signal in the internal carotid artery immediately after the bifurcation of the left common carotid artery, compatible with occlusion. Left Internal Carotid Stenosis (% by NASCET Criteria): 100% Cervical Vertebral Arteries: Patency: Bilateral Dominance: Codominant IMPRESSION: Evolution of now remote large left MCA territory infarct with progressive gliosis and volume loss compared to 11/10/2016. No acute findings on today's exam. Jaev-gw-uvacvw MRA demonstrates complete occlusion of the left internal carotid artery immediately after the common carotid bifurcation. 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 There is reconstitution of the left MCA via collateral flow via the left JENNIFER and left posterior communicating artery. Small saccular aneurysm approximately 2 mm in size projecting superiorly from the midportion of the anterior communicating artery. Immediately (more content not included)... Normal [facility] MRA CAROTID WO IVCONon 05-07 MRA CAROTID WO IVCON * * *Final Report* * * DATE OF EXAM: May 07 2024 2:20PM [facility] 0275 - MRA CAROTID WO IVCON / PROCEDURE REASON: multiple diagnoses * * * * Physician Interpretation * * * * EXAMINATION: MRA BRAIN WO IVCON, MRI BRAIN WO IVCON, MRA CAROTID WO IVCON CLINICAL HISTORY: History of left MCA territory infarct in 2017 with concern for interval strokes. TECHNIQUE: Routine noncontrast MRI brain protocol including diffusion and gradient echo images. Intracranial and carotid 3D [id number] MRA with post-processing performed at the modality and 2D multiplanar and 3D maximum intensity projections were created, reviewed and archived. MQ: MRAB_4 COMPARISON: CT brain 11/22/2016, MRI brain 11/03/2018 RESULT: BRAIN: Acute Change: There is no evidence of restricted diffusion to suggest an acute infarct. Hemorrhage: Scattered areas of susceptibility along the margins of the left MCA territory infarct, likely secondary to prior petechial hemorrhage. Mass Lesion/ Mass Effect: No evidence of an intracranial mass or extra-axial fluid collection. No significant mass effect. Chronic Change: Evolution of large left MCA territory infarct with extensive gliosis and volume loss throughout the majority of the left MCA territory with relative sparing of the left temporal pole. There is evidence of interval asymmetry infarct. In the right cerebral hemisphere, scattered patchy areas of increased T2 and FLAIR signal likely reflect mild to moderate chronic microvascular ischemia. Parenchyma: No significant volume loss for age. Ventricles: Normal caliber and morphology except for ex vacuo dilation of the left lateral ventricle. Skull Base: Hypothalamic and pituitary region are grossly normal. Craniocervical junction is normal. No significant marrow replacement process. Vasculature: Absent flow void in the left ICA with recovery of flow void in the left MCA. Other intracranial arterial structures, and dural venous sinuses show typical flow void, suggesting patency by spin echo criteria. Other: The visualized paranasal sinuses and mastoid air cells are clear. The orbits and extracranial soft tissues are unremarkable. Intracranial MRA: Anterior Circulation: The right distal ICA is patent and within normal limits of caliber and configuration. There is absent signal in the left ICA suggesting occlusion. The proximal ACAs are patent with normal caliber and configuration. The right MCA is patent and within normal limits of caliber and configuration. There is relatively decreased signal and caliber of the left MCA, which appears to be supplied by patent left A1 segment and left P-comm. 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 (100:141 and adjacent contiguous images for reference). When viewed on the 3-dimensional projections, there is the suggestion that this could represent an infundibulum, but there is an adjacent small vessel which appears separate from the dome of this saccular aneurysm which overlaps the aneurysm on 3-D projections. When viewed in the axial plane on series 100, the aneurysm is just anterior to this small pericallosal branch vessel arising from the anterior communicating artery. Posterior Circulation: The visualized distal vertebral and basilar arteries are patent and within normal limits of caliber and configuration. The bilateral AICAs and SCAs are visualized proximally. The proximal is technician are within normal limits of caliber and configuration. There is no evidence of focal, significant stenosis, abrupt vessel occlusion or aneurysm in the visualized vessels. Extracranial carotid MRA: Carotid Stenosis: Right Common: No significant stenosis. Right Internal Plaque: No significant plaque formation. Right Internal Carotid Stenosis (% by NASCET Criteria): 0 Left Common: No significant stenosis. Left Internal Carotid Plaque: There is complete loss of signal in the internal carotid artery immediately after the bifurcation of the left common carotid artery, compatible with occlusion. Left Internal Carotid Stenosis (% by NASCET Criteria): 100% Cervical Vertebral Arteries: Patency: Bilateral Dominance: Codominant IMPRESSION: Evolution of now remote large left MCA territory infarct with progressive gliosis and volume loss compared to 11/10/2016. No acute findings on today's exam. Enst-lu-xekkfa MRA demonstrates complete occlusion of the left internal carotid artery immediately after the common carotid bifurcation. 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 There is reconstitution of the left MCA via collateral flow via the left JENNIFER and left posterior communicating artery. Small saccular aneurysm approximately 2 mm in size projecting superiorly from the midportion of the anterior communicating artery. Immediately (more content not included)... Normal [facility] MRA Head vessels WO contrast on 05-07-2024 * * *Final Report* * * DATE OF EXAM: May 07 2024 2:20PM [facility] 0[facility] - MRA BRAIN WO IVCON / PROCEDURE REASON: multiple diagnoses * * * * Physician Interpretation * * * * EXAMINATION: MRA BRAIN WO IVCON, MRI BRAIN WO IVCON, MRA CAROTID WO IVCON CLINICAL HISTORY: History of left MCA territory infarct in 2017 with concern for interval strokes. TECHNIQUE: Routine noncontrast MRI brain protocol including diffusion and gradient echo images. Intracranial and carotid 3D [id number]-[id number] MRA with post-processing performed at the modality and 2D multiplanar and 3D maximum intensity projections were created, reviewed and archived. MQ: MRAB_4 COMPARISON: CT brain 11/22/2016, MRI brain 11/03/2018 RESULT: BRAIN: Acute Change: There is no evidence of restricted diffusion to suggest an acute infarct. Hemorrhage: Scattered areas of susceptibility along the margins of the left MCA territory infarct, likely secondary to prior petechial hemorrhage. Mass Lesion/ Mass Effect: No evidence of an intracranial mass or extra-axial fluid collection. No significant mass effect. Chronic Change: Evolution of large left MCA territory infarct with extensive gliosis and volume loss throughout the majority of the left MCA territory with relative sparing of the left temporal pole. There is evidence of interval asymmetry infarct. In the right cerebral hemisphere, scattered patchy areas of increased T2 and FLAIR signal likely reflect mild to moderate chronic microvascular ischemia. Parenchyma: No significant volume loss for age. Ventricles: Normal caliber and morphology except for ex vacuo dilation of the left lateral ventricle. Skull Base: Hypothalamic and pituitary region are grossly normal. Craniocervical junction is normal. No significant marrow replacement process. Vasculature: Absent flow void in the left ICA with recovery of flow void in the left MCA. Other intracranial arterial structures, and dural venous sinuses show typical flow void, suggesting patency by spin echo criteria. Other: The visualized paranasal sinuses and mastoid air cells are clear. The orbits and extracranial soft tissues are unremarkable. Intracranial MRA: Anterior Circulation: The right distal ICA is patent and within normal limits of caliber and configuration. There is absent signal in the left ICA suggesting occlusion. The proximal ACAs are patent with normal caliber and configuration. The right MCA is patent and within normal limits of caliber and configuration. There is relatively decreased signal and caliber of the left MCA, which appears to be supplied by patent left A1 segment and left P-comm. 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 (100:141 and adjacent contiguous images for reference). When viewed on the 3-dimensional projections, there is the suggestion that this could represent an infundibulum, but there is an adjacent small vessel which appears separate from the dome of this saccular aneurysm which overlaps the aneurysm on 3-D projections. When viewed in the axial plane on series 100, the aneurysm is just anterior to this small pericallosal branch vessel arising from the anterior communicating artery. Posterior Circulation: The visualized distal vertebral and basilar arteries are patent and within normal limits of caliber and configuration. The bilateral AICAs and SCAs are visualized proximally. The proximal is technician are within normal limits of caliber and configuration. There is no evidence of focal, significant stenosis, abrupt vessel occlusion or aneurysm in the visualized vessels. Extracranial carotid MRA: Carotid Stenosis: Right Common: No significant stenosis. Right Internal Plaque: No significant plaque formation. Right Internal Carotid Stenosis (% by NASCET Criteria): 0 Left Common: No significant stenosis. Left Internal Carotid Plaque: There is complete loss of signal in the internal carotid artery immediately after the bifurcation of the left common carotid artery, compatible with occlusion. Left Internal Carotid Stenosis (% by NASCET Criteria): 100% Cervical Vertebral Arteries: Patency: Bilateral Dominance: Codominant DIVISION OF RADIOLOGY Provider, [facility] - 05/07/2024 * * *Final Report* * * DATE OF EXAM: May 07 2024 2:20PM [facility] 0272 - MRA BRAIN WO IVCON / PROCEDURE REASON: multiple diagnoses * * * * Physician Interpretation * * * * EXAMINATION: MRA BRAIN WO IVCON, MRI BRAIN WO IVCON, MRA CAROTID WO IVCON CLINICAL HISTORY: History of left MCA territory infarct in 2017 with concern for interval strokes. TECHNIQUE: Routine noncontrast MRI brain protocol including diffusion and gradient echo images. Intracranial and carotid 3D [id number]-[id number] MRA with post-processing performed at the modality and 2D multiplanar and 3D maximum intensity projections were created, reviewed and archived. MQ: MRAB_4 COMPARISON: CT brain 11/22/2016, MRI brain 11/03/2018 RESULT: BRAIN: Acute Change: There is no evidence of restricted diffusion to suggest an acute infarct. Hemorrhage: Scattered areas of susceptibility along the margins of the left MCA territory infarct, likely secondary to prior petechial hemorrhage. Mass Lesion/ Mass Effect: No evidence of an intracranial mass or extra-axial fluid collection. No significant mass effect. Chronic Change: Evolution of large left MCA territory infarct with extensive gliosis and volume loss throughout the majority of the left MCA territory with relative sparing of the left temporal pole. There is evidence of interval asymmetry infarct. In the right cerebral hemisphere, scattered patchy areas of increased T2 and FLAIR signal likely reflect mild to moderate chronic microvascular ischemia. Parenchyma: No significant volume loss for age. Ventricles: Normal caliber and morphology except for ex vacuo dilation of the left lateral ventricle. Skull Base: Hypothalamic and pituitary region are grossly normal. Craniocervical junction is normal. No significant marrow replacement process. Vasculature: Absent flow void in the left ICA with recovery of flow void in the left MCA. Other intracranial arterial structures, and dural venous sinuses show typical flow void, suggesting patency by spin echo criteria. Other: The visualized paranasal sinuses and mastoid air cells are clear. The orbits and extracranial soft tissues are unremarkable. Intracranial MRA: Anterior Circulation: The right distal ICA is patent and within normal limits of caliber and configuration. There is absent signal in the left ICA suggesting occlusion. The proximal ACAs are patent with normal caliber and configuration. The right MCA is patent and within normal limits of caliber and configuration. There is relatively decreased signal and caliber of the left MCA, which appears to be supplied by patent left A1 segment and left P-comm. 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 (100:141 and adjacent contiguous images for reference). When viewed on the 3-dimensional projections, there is the suggestion that this could represent an infundibulum, but there is an adjacent small vessel which appears separate from the dome of this saccular aneurysm which overlaps the aneurysm on 3-D projections. When viewed in the axial plane on series 100, the aneurysm is just anterior to this small pericallosal branch vessel arising from the anterior communicating artery. Posterior Circulation: The visualized distal vertebral and basilar arteries are patent and within normal limits of caliber and configuration. The bilateral AICAs and SCAs are visualized proximally. The proximal is technician are within normal limits of caliber and configuration. There is no evidence of focal, significant stenosis, abrupt vessel occlusion or aneurysm in the visualized vessels. Extracranial carotid MRA: Carotid Stenosis: Right Common: No significant stenosis. Right Internal Plaque: No significant plaque formation. Right Internal Carotid Stenosis (% by NASCET Criteria): 0 Left Common: No significant stenosis. Left Internal Carotid Plaque: There is complete loss of signal in the internal carotid artery immediately after the bifurcation of the left common carotid artery, compatible with occlusion. Left Internal Carotid Stenosis (% by NASCET Criteria): 100% Cervical Vertebral Arteries: Patency: Bilateral Dominance: Codominant IMPRESSION IMPRESSION: Evolution of now remote large left MCA territory infarct with progressive gliosis and volume loss compared to 11/10/2016. No acute findings on today's exam. Ltyr-xo-bswkxa MRA demonstrates complete occlusion of the left internal carotid artery immediately after the common carotid bifurcation. 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 There is reconstitution of the left MCA via collateral flow via the left JENNIFER and left posterior communicating a (more content not included)... [facility] MRA Neck vessels WO contrast on 05-07-2024 * * *Final Report* * * DATE OF EXAM: May 07 2024 2:20PM [facility] 0275 - MRA CAROTID WO IVCON / PROCEDURE REASON: multiple diagnoses * * * * Physician Interpretation * * * * EXAMINATION: MRA BRAIN WO IVCON, MRI BRAIN WO IVCON, MRA CAROTID WO IVCON CLINICAL HISTORY: History of left MCA territory infarct in 2017 with concern for interval strokes. TECHNIQUE: Routine noncontrast MRI brain protocol including diffusion and gradient echo images. Intracranial and carotid 3D pvzw-qo-[id number] MRA with post-processing performed at the modality and 2D multiplanar and 3D maximum intensity projections were created, reviewed and archived. MQ: MRAB_4 COMPARISON: CT brain 11/22/2016, MRI brain 11/03/2018 RESULT: BRAIN: Acute Change: There is no evidence of restricted diffusion to suggest an acute infarct. Hemorrhage: Scattered areas of susceptibility along the margins of the left MCA territory infarct, likely secondary to prior petechial hemorrhage. Mass Lesion/ Mass Effect: No evidence of an intracranial mass or extra-axial fluid collection. No significant mass effect. Chronic Change: Evolution of large left MCA territory infarct with extensive gliosis and volume loss throughout the majority of the left MCA territory with relative sparing of the left temporal pole. There is evidence of interval asymmetry infarct. In the right cerebral hemisphere, scattered patchy areas of increased T2 and FLAIR signal likely reflect mild to moderate chronic microvascular ischemia. Parenchyma: No significant volume loss for age. Ventricles: Normal caliber and morphology except for ex vacuo dilation of the left lateral ventricle. Skull Base: Hypothalamic and pituitary region are grossly normal. Craniocervical junction is normal. No significant marrow replacement process. Vasculature: Absent flow void in the left ICA with recovery of flow void in the left MCA. Other intracranial arterial structures, and dural venous sinuses show typical flow void, suggesting patency by spin echo criteria. Other: The visualized paranasal sinuses and mastoid air cells are clear. The orbits and extracranial soft tissues are unremarkable. Intracranial MRA: Anterior Circulation: The right distal ICA is patent and within normal limits of caliber and configuration. There is absent signal in the left ICA suggesting occlusion. The proximal ACAs are patent with normal caliber and configuration. The right MCA is patent and within normal limits of caliber and configuration. There is relatively decreased signal and caliber of the left MCA, which appears to be supplied by patent left A1 segment and left P-comm. 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 (100:141 and adjacent contiguous images for reference). When viewed on the 3-dimensional projections, there is the suggestion that this could represent an infundibulum, but there is an adjacent small vessel which appears separate from the dome of this saccular aneurysm which overlaps the aneurysm on 3-D projections. When viewed in the axial plane on series 100, the aneurysm is just anterior to this small pericallosal branch vessel arising from the anterior communicating artery. Posterior Circulation: The visualized distal vertebral and basilar arteries are patent and within normal limits of caliber and configuration. The bilateral AICAs and SCAs are visualized proximally. The proximal is technician are within normal limits of caliber and configuration. There is no evidence of focal, significant stenosis, abrupt vessel occlusion or aneurysm in the visualized vessels. Extracranial carotid MRA: Carotid Stenosis: Right Common: No significant stenosis. Right Internal Plaque: No significant plaque formation. Right Internal Carotid Stenosis (% by NASCET Criteria): 0 Left Common: No significant stenosis. Left Internal Carotid Plaque: There is complete loss of signal in the internal carotid artery immediately after the bifurcation of the left common carotid artery, compatible with occlusion. Left Internal Carotid Stenosis (% by NASCET Criteria): 100% Cervical Vertebral Arteries: Patency: Bilateral Dominance: Codominant DIVISION OF RADIOLOGY Provider, [facility] - 05/07/2024 * * *Final Report* * * DATE OF EXAM: May 07 2024 2:20PM [facility] 0275 - MRA CAROTID WO IVCON / PROCEDURE REASON: multiple diagnoses * * * * Physician Interpretation * * * * EXAMINATION: MRA BRAIN WO IVCON, MRI BRAIN WO IVCON, MRA CAROTID WO IVCON CLINICAL HISTORY: History of left MCA territory infarct in 2017 with concern for interval strokes. TECHNIQUE: Routine noncontrast MRI brain protocol including diffusion and gradient echo images. Intracranial and carotid 3D [id number] MRA with post-processing performed at the modality and 2D multiplanar and 3D maximum intensity projections were created, reviewed and archived. MQ: MRAB_4 COMPARISON: CT brain 11/22/2016, MRI brain 11/03/2018 RESULT: BRAIN: Acute Change: There is no evidence of restricted diffusion to suggest an acute infarct. Hemorrhage: Scattered areas of susceptibility along the margins of the left MCA territory infarct, likely secondary to prior petechial hemorrhage. Mass Lesion/ Mass Effect: No evidence of an intracranial mass or extra-axial fluid collection. No significant mass effect. Chronic Change: Evolution of large left MCA territory infarct with extensive gliosis and volume loss throughout the majority of the left MCA territory with relative sparing of the left temporal pole. There is evidence of interval asymmetry infarct. In the right cerebral hemisphere, scattered patchy areas of increased T2 and FLAIR signal likely reflect mild to moderate chronic microvascular ischemia. Parenchyma: No significant volume loss for age. Ventricles: Normal caliber and morphology except for ex vacuo dilation of the left lateral ventricle. Skull Base: Hypothalamic and pituitary region are grossly normal. Craniocervical junction is normal. No significant marrow replacement process. Vasculature: Absent flow void in the left ICA with recovery of flow void in the left MCA. Other intracranial arterial structures, and dural venous sinuses show typical flow void, suggesting patency by spin echo criteria. Other: The visualized paranasal sinuses and mastoid air cells are clear. The orbits and extracranial soft tissues are unremarkable. Intracranial MRA: Anterior Circulation: The right distal ICA is patent and within normal limits of caliber and configuration. There is absent signal in the left ICA suggesting occlusion. The proximal ACAs are patent with normal caliber and configuration. The right MCA is patent and within normal limits of caliber and configuration. There is relatively decreased signal and caliber of the left MCA, which appears to be supplied by patent left A1 segment and left P-comm. 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 (100:141 and adjacent contiguous images for reference). When viewed on the 3-dimensional projections, there is the suggestion that this could represent an infundibulum, but there is an adjacent small vessel which appears separate from the dome of this saccular aneurysm which overlaps the aneurysm on 3-D projections. When viewed in the axial plane on series 100, the aneurysm is just anterior to this small pericallosal branch vessel arising from the anterior communicating artery. Posterior Circulation: The visualized distal vertebral and basilar arteries are patent and within normal limits of caliber and configuration. The bilateral AICAs and SCAs are visualized proximally. The proximal is technician are within normal limits of caliber and configuration. There is no evidence of focal, significant stenosis, abrupt vessel occlusion or aneurysm in the visualized vessels. Extracranial carotid MRA: Carotid Stenosis: Right Common: No significant stenosis. Right Internal Plaque: No significant plaque formation. Right Internal Carotid Stenosis (% by NASCET Criteria): 0 Left Common: No significant stenosis. Left Internal Carotid Plaque: There is complete loss of signal in the internal carotid artery immediately after the bifurcation of the left common carotid artery, compatible with occlusion. Left Internal Carotid Stenosis (% by NASCET Criteria): 100% Cervical Vertebral Arteries: Patency: Bilateral Dominance: Codominant IMPRESSION IMPRESSION: Evolution of now remote large left MCA territory infarct with progressive gliosis and volume loss compared to 11/10/2016. No acute findings on today's exam. Xavv-iq-kvrbgn MRA demonstrates complete occlusion of the left internal carotid artery immediately after the common carotid bifurcation. 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 There is reconstitution of the left MCA via collateral flow via the left JENNIFER and left posterior communicating (more content not included)... [facility] MRI BRAIN WO IVCONon 10-03-2 024 MRI BRAIN WO IVCON * * *Final Report* * * DATE OF EXAM: May 07 2024 2:20PM [facility] 0294 - MRI BRAIN WO IVCON / PROCEDURE REASON: multiple diagnoses * * * * Physician Interpretation * * * * EXAMINATION: MRA BRAIN WO IVCON, MRI BRAIN WO IVCON, MRA CAROTID WO IVCON CLINICAL HISTORY: History of left MCA territory infarct in 2017 with concern for interval strokes. TECHNIQUE: Routine noncontrast MRI brain protocol including diffusion and gradient echo images. Intracranial and carotid 3D dmec-tl-eyzmug MRA with post-processing performed at the modality and 2D multiplanar and 3D maximum intensity projections were created, reviewed and archived. MQ: [id number] COMPARISON: CT brain 11/22/2016, MRI brain 11/03/2018 RESULT: BRAIN: Acute Change: There is no evidence of restricted diffusion to suggest an acute infarct. Hemorrhage: Scattered areas of susceptibility along the margins of the left MCA territory infarct, likely secondary to prior petechial hemorrhage. Mass Lesion/ Mass Effect: No evidence of an intracranial mass or extra-axial fluid collection. No significant mass effect. Chronic Change: Evolution of large left MCA territory infarct with extensive gliosis and volume loss throughout the majority of the left MCA territory with relative sparing of the left temporal pole. There is evidence of interval asymmetry infarct. In the right cerebral hemisphere, scattered patchy areas of increased T2 and FLAIR signal likely reflect mild to moderate chronic microvascular ischemia. Parenchyma: No significant volume loss for age. Ventricles: Normal caliber and morphology except for ex vacuo dilation of the left lateral ventricle. Skull Base: Hypothalamic and pituitary region are grossly normal. Craniocervical junction is normal. No significant marrow replacement process. Vasculature: Absent flow void in the left ICA with recovery of flow void in the left MCA. Other intracranial arterial structures, and dural venous sinuses show typical flow void, suggesting patency by spin echo criteria. Other: The visualized paranasal sinuses and mastoid air cells are clear. The orbits and extracranial soft tissues are unremarkable. Intracranial MRA: Anterior Circulation: The right distal ICA is patent and within normal limits of caliber and configuration. There is absent signal in the left ICA suggesting occlusion. The proximal ACAs are patent with normal caliber and configuration. The right MCA is patent and within normal limits of caliber and configuration. There is relatively decreased signal and caliber of the left MCA, which appears to be supplied by patent left A1 segment and left P-comm. 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 (100:141 and adjacent contiguous images for reference). When viewed on the 3-dimensional projections, there is the suggestion that this could represent an infundibulum, but there is an adjacent small vessel which appears separate from the dome of this saccular aneurysm which overlaps the aneurysm on 3-D projections. When viewed in the axial plane on series 100, the aneurysm is just anterior to this small pericallosal branch vessel arising from the anterior communicating artery. Posterior Circulation: The visualized distal vertebral and basilar arteries are patent and within normal limits of caliber and configuration. The bilateral AICAs and SCAs are visualized proximally. The proximal is technician are within normal limits of caliber and configuration. There is no evidence of focal, significant stenosis, abrupt vessel occlusion or aneurysm in the visualized vessels. Extracranial carotid MRA: Carotid Stenosis: Right Common: No significant stenosis. Right Internal Plaque: No significant plaque formation. Right Internal Carotid Stenosis (% by NASCET Criteria): 0 Left Common: No significant stenosis. Left Internal Carotid Plaque: There is complete loss of signal in the internal carotid artery immediately after the bifurcation of the left common carotid artery, compatible with occlusion. Left Internal Carotid Stenosis (% by NASCET Criteria): 100% Cervical Vertebral Arteries: Patency: Bilateral Dominance: Codominant IMPRESSION: Evolution of now remote large left MCA territory infarct with progressive gliosis and volume loss compared to 11/10/2016. No acute findings on today's exam. Vnif-da-dlpkfo MRA demonstrates complete occlusion of the left internal carotid artery immediately after the common carotid bifurcation. 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 There is reconstitution of the left MCA via collateral flow via the left JENNIFER and left posterior communicating artery. Small saccular aneurysm approximately 2 mm in size projecting superiorly from the midportion of the anterior communicating artery. Immediately (more content not included)... Normal [facility] No Panel InformationOrdered By: [facility] Provider on 05-07-2024 [facility] No Panel Informationon 05-07 Radiology Study observation (narrative) [facility] AFSHIN ZEE ([id number]) 1955 M Date Time Provider Department 05/06/24 JORGE CARDOSO GENSWS During your visit today, we recorded the following information about you: Meka Mireles 05/06/2024 10:37 AM Signed Pt spouse calling about getting information on Colonoscopy. She wants to be sure that the prep is sent to the right Pharmacy. [facility] open, will want it to go to [facility]. She also wants to confirm the time is going to be 10 am arrival time as previously stated. Lora James RN 05/06/2024 2:34 PM Signed Patient's consult was with Dr. Lai on 02/24/2024, Yolandaly was advised for prep, however the patient is scheduled to have his colonoscopy with Dr. Cardoso. I do not see where the prep was sent to any pharmacy. A new prescription will need to be sent to [facility]. Also, I cannot confirm the time, could a home care scheduler please contact the patient's , Eli? Lora James RN May 06, 2024 2:33 PM Sharon Hinojosa 05/06/2024 2:58 PM Signed Per other telephone note patient only wanted to be with dr Cardoos the original date he was scheduled on 06/24 was to be with Walker. However the surgeons schedules changed and that day and it was allocated to Dr. Lai. Patient confirmed he was okay with 08/29 when I rescheduled procedure back on 04/30/2024. Attempted to reach patient today to confirm this again but was unsuccessful. Date is set for 06/29/[address] [place] [address]. Cardoso and times are NEVER given until the business day prior. Times on [facility] are not correct and subject to change. They will receive accurate arrival time the business day prior. Left voicemail for patient and Eli to call me back directly at [phone] to go over information again. Patient is needing prep Golytely sent to [facility] in [place] as it was never sent originally. Sharon Hinojosa Ancillary Services Manager Therapy Nikkie Prado APRN.ESTELLA 05/06/2024 3:20 PM Signed GoLytely sent to [facility]. Allergies As of Date: 05/06/2024 Noted Allergy Reaction LISINOPRIL 09/27/2016 7 - Swelling 18 - Angioedema Comments: Lip swelling after starting lisinopril. DOXYCYCLINE 12/11/2022 8 - GI Upset 14 - Other: See Comments Comments: GI upset (stomach ache/cramping/diarrhea ) and splotchy face SULFA (SULFONAMIDE ANTIBIOTICS) 03/11/2019 4 - Hives ZPAK (AZITHROMYCIN) 10/03/2018 4 - Hives Date Reviewed: 04/03/2024 Reviewed by: Monica Cruz MA - Fully Assessed Reason for Visit: Patient Question [1477] colonoscopy prep [Other] Order(s):peg 3350-Electrolytes (GOLYTELY) 236-22.74-6.74 -5.86 gram suspensionTake 4,000 mL by mouth one time only for 1 dose.Disp: 1 EachRfl: 0 Prescriptions as of 05/06/2024 - peg 3350-Electrolytes (GOLYTELY) 236-22.74-6.74 -5.86 gram suspension Take 4,000 mL by mouth one time only for 1 dose. - STIOLTO RESPIMAT 2.5-2.5 mcg/actuation inhaler inhale 2 puffs by mouth as directed once daily - busPIRone (BUSPAR) 15 mg tablet Take 1 tablet by mouth three times a day. - LORazepam (ATIVAN) 1 mg tablet Take 1-2 tablets by mouth three times a day as needed for anxiety for up to 45 days. Take 1-2 pills three times a day - baclofen 10 mg tablet Take 1 tablet by mouth three times a day. - multivitamin tablet Take 1 tablet by mouth once daily. - potassium chloride (K-TAB) 10 mEq tablet Take 2 tablets by mouth three times a day. - albuterol (PROVENTIL) 2.5 mg /3 mL (0.083 %) nebulizer solution INHALE 1 VIAL VIA NEBULIZER EVERY 4 HOURS NEEDED FOR WHEEZING/SHORTNESS OF BREATH. USE OVER 5-15 MINUTES - clotrimazole-betametha sone (LOTRISONE) cream Apply to affected area two times a day. - clopidogrel (PLAVIX) 75 mg tablet Take 1 tablet by mouth once daily. - amLODIPine (NORVASC) 10 mg tablet Take 0.5 tablets by mouth two times a day. Take 1/2 tablet twice daily - ezetimibe (ZETIA) 10 mg tablet Take 1 tablet by mouth once daily. - losartan (COZAAR) 25 mg tablet Take 1 tablet by mouth once daily. - ferrous sulfate (FEROSUL) 325 mg (65 mg iron) tablet Take 1 tablet by mouth two times a day. - amiodarone (PACERONE) 100 mg tablet TAKE 1 TABLET BY MOUTH ONCE DAILY *DO NOT TAKE IF HEART RATE IS LESS THAN 40* - atorvastatin (LIPITOR) 40 mg tablet take 1 tablet by mouth once daily - escitalopram oxalate (LEXAPRO) 20 mg tablet take 1 tablet by mouth once daily - apixaban (ELIQUIS) 5 mg tab(s) take 1 tablet by mouth twice daily - metoprolol tartrate, short acting, (LOPRESSOR) 25 mg tablet TAKE 1/2 TABLET BY MOUTH TWICE DAILY. HOLD IF HEART RATE IS LESS THAN 60 - acetaminophen (TYLENOL EXTRA STRENGTH) 500 mg tablet Take 2 tablets by mouth three times a day as needed for pain. - zinc oxide 20 % ointment Apply to affected area as needed. - traZODone (DESYREL) 100 mg tablet Take 1 tablet by mouth da (more content not included)... Normal [facility] 12 Lead EKGon 04-08-2024 12 Lead EKG [facility] Cardiovascular Services [address] [place] [address] 12 Lead EKG 04/08/24 1917 MR#: [id number] Acct: [id number] Name: AFSHIN ZEE Rep #: [id number] : 1955 68 From: Lion Randhawa MD Attending Dr: Status: DEP ER Ordering Dr: Roosevelt Torre DO Date: 04/08/24 Location: ED Sex: M C Admitted: Test Reason : Blood Pressure : / mmHG Vent. Rate : 055 BPM Atrial Rate : 055 BPM P-R Int : 242 ms QRS Dur : 090 ms QT Int : 506 ms P-R-T Axes : 061 -36 050 degrees QTc Int : 484 ms Sinus bradycardia with 1st degree A-V block Left axis deviation Inferior infarct , age undetermined Abnormal ECG Confirmed by LION RANDHAWA MD ([id number]), copy editor KHRIS HOPKINS ([id number]) on 04/09/2024 1:53:05 PM Referred By: Confirmed By:LION RANDHAWA MD 04/09/24 1353 Date Lion Randhawa MD CC: Dr. Jaci Arroyo MD; Dr. Roosevelt Torre DO Signed Normal [facility] Basic Metabolic Profile (BMP )on 04-08-2024 BUN/CRE 10.3 RATIO Normal 10-20 [facility] Comment on above: Order Comment: 'TROP ' Serial specimen #1, #2 or #3: 1 Performed By: #### L 100.0500, L500.2500, L501.4020 #### [facility] [address] [place], [address] CA,Total 9.1 mg/dL Normal 8.5-10.1 [facility] Comment on above: Order Comment: 'TROP ' Serial specimen #1, #2 or #3: 1 Performed By: #### L 100.0500, L500.2500, L501.4020 #### [facility] [address] [place], [address] Chloride [Moles/Vol] 110 mmol/L High 98-107 [facility] Comment on above: Order Comment: 'TROP ' Serial specimen #1, #2 or #3: 1 Performed By: #### L 100.0500, L500.2500, L501.4020 #### [facility] [address] [place], [address] CO2 [Moles/Vol] 28.0 mmol/L Normal 21.0-32.0 [facility] Comment on above: Order Comment: 'TROP ' Serial specimen #1, #2 or #3: 1 Performed By: #### L 100.0500, L500.2500, L501.4020 #### [facility] [address] [place], [address] Creatinine [Mass/Vol] 1.56 mg/dL High 0.70-1.30 [facility] Comment on above: Order Comment: 'TROP ' Serial specimen #1, #2 or #3: 1 Result Comment: The validity of the calculated GFR GFRAA in patients over 70 years has not been determined. Clinical correlation is essential. Performed By: #### L 100.0500, L500.2500, L501.4020 #### [facility] [address] [place], [address] EST GFR - AA 57 mL/min Low >60 [facility] Comment on above: Order Comment: 'TROP ' Serial specimen #1, #2 or #3: 1 Result Comment: Afri can Ghanaian GFR Calc Performed By: #### L 100.0500, L500.2500, L501.4020 #### [facility] [address] [place], [address] GAP 3 Low 5-15 [facility] Comment on above: Order Comment: 'TROP ' Serial specimen #1, #2 or #3: 1 Performed By: #### L 100.0500, L500.2500, L501.4020 #### [facility] [address] [place], [address] GFR/1.73 sq M.predicted among non-blacks MDRD (S/P/Bld) [Vol rate/Area] 47 mL/min/{1.73_m2} Low >60 [facility] Comment on above: Order Comment: 'TROP ' Serial specimen #1, #2 or #3: 1 Result Comment: Non- GFR Calc Performed By: #### L 100.0500, L500.2500, L501.4020 #### [facility] [address] [place], [address] Glucose [Mass/Vol] 110 mg/dL High 74-106 [facility] Comment on above: Order Comment: 'TROP ' Serial specimen #1, #2 or #3: 1 Result Comment: Fast ing Glucose result from 100 to 125 mg/dL suggests IMPAIRED HOMEOSTASIS per A.D.A. criteria. Performed By: #### L 100.0500, L500.2500, L501.4020 #### [facility] [address] [place], [address] Potassium [Moles/Vol] 4.3 mmol/L Normal 3.5-5.1 [facility] Comment on above: Order Comment: 'TROP ' Serial specimen #1, #2 or #3: 1 Performed By: #### L 100.0500, L500.2500, L501.4020 #### [facility] [address] [place], [address] Sodium [Moles/Vol] 141 mmol/L Normal 136-145 [facility] Comment on above: Order Comment: 'TROP ' Serial specimen #1, #2 or #3: 1 Performed By: #### L 100.0500, L500.2500, L501.4020 #### [facility] [address] [place], [address] Urea nitrogen [Mass/Vol] 16 mg/dL Normal 7-18 [facility] Comment on above: Order Comment: 'TROP ' Serial specimen #1, #2 or #3: 1 Performed By: #### L 100.0500, L500.2500, L501.4020 #### [facility] [address] [place], [address] Brain/Head without Contrasto n 04-08-2024 Brain/Head without Contrast [facility] Imaging Services [address] [place] [address] Brain/Head without Contrast MR#: [id number] Acct: [id number] Name: AFSHIN ZEE Rep #: [id number] : 1955 M 68 From: Rony Pappas PCP: Dr. Jaci Arroyo MD Status: REG ER Study: Brain/Head without Contrast Date of Exam: 11/26 Exam# [id number] Ordering Dr: Roosevelt Torre DO [id number] STUDY: CT BRAIN WITHOUT CONTRAST REASON FOR EXAM: Male, 68 years old. FALL RADIATION DOSAGE (If Supplied By Facility): CTDIvol = ( 44.99 ) mGy, DLP = ( 863.60 ) mGycm TECHNIQUE: Transaxial CT imaging of the brain was performed without administration of intravenous contrast material. Individualized dose optimization techniques were used for this CT. The protocol utilizes one or more of the following dose reduction techniques: automated exposure control, adjustment of mA and/or kV according to patient size,and/or use of iterative reconstruction technique. COMPARISON: MR brain August 17, 2021) and CT July 26, 2023 FINDINGS: Normal soft tissue structures. Normal calvarium. There is moderate cerebral atrophy with widening of the extra-axial spaces and ventricular dilatation. There are areas of decreased attenuation within the white matter tracts of the supratentorial brain, consistent with microvascular disease changes. Encephalomalacia left frontal and left temporal lobes. Exvacuodilatation left lateral ventricle. Intracranial atherosclerosis. Normal basal ganglia and thalami. Normal brainstem. Normal cerebellum. There is no intracranial hemorrhage. There are no findings of an acute ischemic infarction. Normal visualized paranasal sinuses. CT/Brain/Head without Contrast IMPRESSION: Remote infarct left ICA distribution. Otherwise no acute disease. Electronically Signed: Rony Demarco MD at 20:55 EDT , CC: Dr. Jaci Arroyo MD; Dr. Roosevelt Torre DO Food Service Utility Worker: Signed Normal [facility] CBC-Complete Blood Cnt No Di ffon 04-08-2024 Erythrocyte distribution width (RBC) [Ratio] 13.1 % Normal 11.6-14.6 [facility] Comment on above: Performed By: #### L 100.0500, L500.2500, L501.4020 #### [facility] [place], [address] Hematocrit (Bld) [Volume fraction] 38.4 % Low 40-54 [facility] Comment on above: Performed By: #### L 100.0500, L500.2500, L501.4020 #### [facility] [address] [place], [address] Hemoglobin (Bld) [Mass/Vol] 12.5 g/dL Low 13.0-16.5 [facility] Comment on above: Performed By: #### L 100.0500, L500.2500, L501.4020 #### [facility] [address] [place], [address] MCH (RBC) [Entitic mass] 30.0 pg Normal 27.0-32.0 [facility] Comment on above: Performed By: #### L 100.0500, L500.2500, L501.4020 #### [facility] [address] [place], [address] MCHC (RBC) [Mass/Vol] 32.6 g/dL Normal 32-36 [facility] Comment on above: Performed By: #### L 100.0500, L500.2500, L501.4020 #### [facility] [address] [place], [address] MCV (RBC) [Entitic vol] 92.3 fL Normal 80-94 [facility] Comment on above: Performed By: #### L 100.0500, L500.2500, L501.4020 #### [facility] [address] [place], [address] Platelet mean volume (Bld) [Entitic vol] 10.9 fL Normal 6.2-12.0 [facility] Comment on above: Performed By: #### L 100.0500, L500.2500, L501.4020 #### [facility] [address] [place], [address] Platelets (Bld) [#/Vol] 248 10*3/uL Normal 150-450 [facility] Comment on above: Performed By: #### L 100.0500, L500.2500, L501.4020 #### [facility] [address] [place], [address] RBC (Bld) [#/Vol] 4.16 10*6/uL Low 4.6-6.2 [facility] Comment on above: Performed By: #### L 100.0500, L500.2500, L501.4020 #### [facility] [address] [place], [address] RDW SD 43.9 fl Normal 35.1-43.9 [facility] Comment on above: Performed By: #### L 100.0500, L500.2500, L501.4020 #### [facility] [address] [place], [address] WBC (Bld) [#/Vol] 12.3 10*3/uL High 4.4-11.0 [facility] Comment on above: Performed By: #### L 100.0500, L500.2500, L501.4020 #### [facility] [address] [place], [address] Chest 1 View (Portable)on Chest 1 View (Portable) [facility] Imaging Services [address] [place] [address] Chest 1 View (Portable) MR#: [id number] Acct: [id number] Name: ZEEAFSHIN Henri Rep #: [id number] : 1955 M 68 From: Rony Pappas PCP: Dr. Jaci Arroyo MD Status: [facility] ER Study: Chest 1 View (Portable) Date of Exam: 04/08/24 Exam# [id number] Ordering Dr: Roosevelt Torre DO [id number] STUDY: X-RAY CHEST REASON FOR EXAM: Male, 68 years old. CHANGE IN MENTAL STATUS TECHNIQUE: Single frontal view of the chest. COMPARISON: CT chest May 22, 2023 FINDINGS: Sternotomy wires. Left perihilar surgical clips. The lungs are clear and expanded. There is no demonstrated pleural abnormality. Normal size heart. Normal mediastinum and ying. Normal visualized pulmonary arteries. Normal visualized aortic arch and descending thoracic aorta. Normal visualized thoracic spine. Normal visualized ribs, clavicles, and shoulders. There is no demonstrated abnormality of the visualized soft tissue structures of the upper abdomen. RAD/Chest 1 View (Portable) IMPRESSION: No acute disease Electronically Signed: Rony Demarco MD at 21:05 EDT , CC: Dr. Jaci Arroyo MD; Dr. Roosevelt Torre DO Food Service Utility Worker: Signed Normal [facility] Emergency Department Summary on 04-08-2024 Emergency Department Summary [facility] Medical Records Department [address] [place], [place] [id number] Emergency Department Summary 04/08/24 MR#: [id number] Acct: [id number] Name: AFSHIN ZEE Rep #: [id number] : 1955 68 From: Roosevelt Torre DO PCP: Dr. Jaci Arroyo MD Status:REG ER Location: ED HPI HPI - Fall History of Present Illness Chief Complaint: Fall [facility] Medical History Ambulates with cane Anemia Anxiety Aphasia as late effect of stroke Atherosclerosis of coronary artery without angina pectoris Bimalleolar fracture of right ankle Bruising Cardiology follow-up encounter Carotid artery disease Cerebral arterial aneurysm Chronic atrial fibrillation Closed right ankle fracture Confusion CPAP (continuous positive airway pressure) dependence Debility Dysphagia Easy bruising Former smoker Gastric reflux History of atrial fibrillation History of Clostridium difficile infection History of echocardiogram History of stroke History of stroke HTN (hypertension) Hyperlipidemia Hypoxia Left acute arterial ischemic stroke, MCA (middle cerebral artery) (10/31/16) longterm current use of amiodarone Lower resp. tract infection Mixed obstructive and restrictive ventilatory defect Respiratory failure Sepsis Smoker Stroke/cerebrovascular accident Wears dentures Wears glasses Home Medications ???Medication ???Instructions ???Recorded ???Last Taken ???Type famotidine 20 mg tablet 20 mg PO QHS PRN PRN Gastric Reflux 12/21/16 08/15/22 History baclofen 10 mg tablet 5 mg (1/2 x 10 mg) PO TID 02/05/17 08/07/23 09:00 Rx multivitamin,tx-iron-m inerals 1 tab PO DAILY vitamin 12/04/18 08/06/23 History (Complete Multivitamin tablet) potassium chloride 10 mEq 20 meq (2 x 10 mEq) PO TID 04/19/20 08/06/23 Rx tablet,extended release potassium #90 tabs ezetimibe 10 mg tablet 10 mg PO DAILY 04/22/21 08/06/23 History escitalopram oxalate 20 mg tablet 20 mg PO DAILY antidepressant 06/11/21 08/06/23 History menthol 0.44 %-zinc oxide 20.6 % 1 applic topical TID PRN Diaper 06/17/21 Unknown Rx topical ointment (Calmoseptine) Rash #0 grams amiodarone 100 mg tablet 100 mg PO DAILY HEART 07/11/21 08/07/23 09:00 History albuterol sulfate 90 mcg/actuation 2 inh inhalation Q4H PRN shortness 05/29/22 08/07/23 Rx aerosol inhaler (Ventolin HFA) of breath or wheezing #18 grams IV poll #1 ea 08/07/22 Unknown Rx trazodone 50 mg tablet 100 mg PO QHS DEPRESSION 08/16/22 08/06/23 History miconazole nitrate 2 % topical 1 applic topical BID 14 days #15 08/17/22 Unknown Rx cream grams amlodipine 5 mg tablet 5 mg PO BID 11/11/22 08/07/23 09:00 History apixaban 5 mg tablet (Eliquis) 5 mg PO BID 11/11/22 08/05/23 History clopidogrel 75 mg tablet (Plavix) 75 mg PO DAILY anti platelet 11/11/22 Unknown History tiotropium 2.5 mcg-olodaterol 2.5 2 puff inhalation DAILY 05/29/23 08/06/23 History mcg/actuation mist for inhalation (Stiolto Respimat) albuterol sulfate 2.5 mg/3 mL 2.5 mg continuous nebulization Q6H 08/02/23 Unknown History (0.083 %) solution for nebulization PRN shortness of breath or wheezing aspirin 81 mg capsule 81 mg PO DAILY 08/02/23 08/03/23 History atorvastatin 40 mg tablet 40 mg PO DAILY 08/02/23 08/06/23 History ferrous sulfate 325 mg (65 mg 325 mg PO DAILY 08/02/23 08/06/23 History iron) tablet (FeroSul) losartan 25 mg tablet 25 mg PO DAILY 08/02/23 08/07/23 09:00 History metoprolol tartrate 25 mg tablet 12.5 mg PO BID 08/02/23 08/07/23 09:00 History fluticasone propionate 50 2 spray intranasal DAILY #16 grams 12/02/23 Unknown Rx mcg/actuation nasal spray,suspension (Flonase Allergy Relief) buspirone 15 mg tablet 15 mg PO TID 04/08/24 Unknown History lorazepam 1 mg tablet (Ativan) 1 - 2 mg PO Q8H PRN agitation 04/08/24 Unknown History Allergy/AdvReac Type Severity Reaction Status Date / Time azithromycin (From Zithromax Allergy Intermediate Hives Verified 04/08/24 18:37 Z-Sacha) lisinopril Allergy Intermediate Hives and Verified 04/08/24 18:37 diarrhea Sulfa (Sulfonamide Allergy Hives Verified 04/08/24 18:37 Antibiotics) Family History Mother Diabetes Heart disease Father AAA (abdominal aortic aneurysm) Heart disease Surgical History History of tracheostomy (11/07/16) 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 Normal [facility] L501.4020on 04-08-2024 TROPONIN-I HS 5 pg/mL Normal 3.0-78.0 [facility] Comment on above: Order Comment: 'TROP ' Serial specimen #1, #2 or #3: 1 Result Comment: Plea se Note: New Test Units and Gender Specific Reference Ranges. For more information see Policy Stat Procedure [place] High Sensitivity Troponin (TNIH) and attachments. Performed By: #### L 100.0500, L500.2500, L501.4020 #### [facility] [address], [address] Spine Cervical without Contr ason 04-08-2024 Spine Cervical without Contras [facility] Imaging Services [address] [place] [address] Spine Cervical without Contras MR#: [id number] Acct: [id number] Name: AFSHIN ZEE Rep #: [id number] : 1955 M 68 From: Rony Pappas PCP: Dr. Jaci Arroyo MD Status: REG ER Study: Spine Cervical without Contras Date of Exam: 0 04/08/24 Exam# [id number] Ordering Dr: Roosevelt Torre DO [id number] STUDY: CT CERVICAL SPINE WITHOUT CONTRAST REASON FOR EXAM: Male, 68 years old. FALL RADIATION DOSAGE (If Supplied By Facility): CTDIvol = ( 22.24 ) mGy, DLP = ( 456.89 ) mGycm TECHNIQUE: High resolution transaxial imaging was performed without contrast material. Sagittal and coronal images were reconstructed. Individualized dose optimization techniques were used for this CT. The protocol utilizes one or more of the following dose reduction techniques: automated exposure control, adjustment of mA and/or kV according to patient size,and/or use of iterative reconstruction technique. COMPARISON: July 26, 2023 CT cervical spine FINDINGS: Normal craniovertebral junction. Normal anterior atlantoaxial articulation. Normal odontoid process. Normal cervical lordosis. Normal vertebral bodies and posterior osseous elements. C2-3: Normal endplates. Normal disc height and morphology. Normal central canal and intervertebral neuroforamina. C3-4: Spondylitic endplates. Normal disc height and morphology. Normal central canal and narrowed intervertebral neuroforamina. C4-5: Spondylitic endplates. Normal disc height and morphology. Normal central canal and narrowed intervertebral neuroforamina. C5-6: Spondylitic endplates. Normal disc height and morphology. Normal central canal and narrowed intervertebral neuroforamina. C6-7: Spondylitic endplates. Normal disc height and morphology. Normal central canal and narrowed right intervertebral neuroforamina. C7-T1: Normal endplates. Normal disc height and morphology. Normal central canal and intervertebral neuroforamina. Normal visualized soft tissue structures. Calcified plaque in the carotids bilaterally. CT/Spine Cervical without Contras IMPRESSION: No fracture Electronically Signed: Rony Demarco MD at 21:30 EDT Reading Location ID and State: [address] [place] [address] Tel , Service support , CC: Dr. Jaci Arroyo MD; Dr. Roosevelt Torre DO Food Service Utility Worker: Signed Normal [facility] Urinalysis, Completeon 04-08 WBC 5-10 SEEN Normal 0-5 [facility] Comment on above: Order Comment: CLEAN CATCH Performed By: #### L 400.0001 ####[facility] [address] [place], [address] BACTERIA 0 SEEN Normal None Seen [facility] Comment on above: Order Comment: CLEAN CATCH Performed By: #### L 400.0001 ####[facility] [address] [place], [address] EPI,SQUAMOUS 0 SEEN Normal 0-5 [facility] Comment on above: Order Comment: CLEAN CATCH Performed By: #### L 400.0001 ####[facility] [address] [place], [address] Mucus Ql (Urine sed) 0 SEEN Normal [facility] Comment on above: Order Comment: CLEAN CATCH Performed By: #### L 400.0001 ####[facility] [address] [place], [address] RBC 0 SEEN Normal 0-5 [facility] Comment on above: Order Comment: CLEAN CATCH Performed By: #### L 400.0001 ####[facility] [address] [place], [place], [address] CNOVon 04-03-2024 CNOV Office Visit (FAMPWS ) AFSHIN ZEE ([id number]) 1955 M Date Time Provider Department 04/03/24 4:20 PM JACI ARROYO FAMPWS During your visit today, we recorded the following information about you: Pulse Respiration Blood pressure Weight 68/minute 16/minute 120/70 84 kg Jaci Arroyo MD 04/03/2024 5:38 PM Signed Afshin Zee is a 68 year old male here for a Medicare wellness visit. Medicare Health Risk Assessment General Health Exercise: Minutes/Day Exercise: Days/Week Alcohol: Daily Use Never Alcohol: Drinks/Day Patient does not drink Alcohol: 6 or more drinks Never Feel off balance Yes Concerns: Teeth/Dentures No Concerns: Sexual function No Troubled by feelings Irritable; Angry; Stressed; Anxious Frequency: Eating healthy diet Nearly every day ADLs requiring help None of the above Safety precautions in home/vehicle Yes Smoke, vape, chews tobacco No Difficulty hearing No Difficulty seeing No Current Providers Specialists: I have reviewed specialist-related care of the patient in the medical record. Current care team: Patient Care Team: Jaci Arroyo MD as PCP - General (Family Medicine) Robin Johansen MD (Cardiology) Espinoza Kimbrough MD as Physician (Thoracic Surgery) David Avila MD (Vascular Surgery) Medical/Family history review Reviewed and updated problem list, medical/surgical/famil y/social history, medications, and allergies. Opioid use review Opioid Medications (last 90 days) No data to display Anxiety/Depression screening PHQ-2 Score: 0 (Lower risk for depression) Recommendation: no further intervention at this time Cognitive screening Cognitive screening reviewed and Patient declined Mini-Cog test. Functional Observation Was the patient's Timed Up AND Go test unsteady or ? 12 seconds? yes Advance Care Planning Patient did not wish or was not able to name a surrogate decision maker or provide an advance care plan Measurements BP 120/70 Pulse 68 Resp 16 Wt 84 kg (185 lb 3 oz) BMI 26.57 kg/m? Vision Screening: Follows with optometry/ophthalmolog y Assessment/Plan Medicare annual wellness visit, initial (Z00.00) - Counseled on healthy diet and regular exercise - Fall avoidance information provided - Personalized prevention plan provided Jaci Arroyo MD Chief Complaint Patient presents with: F/U 3 Month HPI Afshin Zee is a 68 year old male who presents here today for a 3 month follow up. Pt here today with his for a routine follow up. Currently receiving PT/OT and Speech through [facility]. Hx of rectal mass, follow with Colorectal Provider, Dr. Sandoval. Pt was to have repeat colonoscopy completed in February with Dr. Cardoso, but this has not been completed. Seen Dr. Lai in February, is scheduled to see Dr. Cardoso in June. Was having some complaints of GI issues back on 02/03/24 with concern of stool infection. GERD: Stable with use of Pepcid 20 mg daily prn. ED: Uses Sildenafil prn for ED. Did not feel Cialis work for him. Anemia: Takes Ferosul 325 mg 1 tab po bid. This was increased by Neuro due to low levels and hopefully to help RLS symptoms. Anxiety/Moods/Insomnia : Chronic anxiety that is treated with Ativan 0.5 mg 1-2 tabs po TID, but states that he doesn't use it this much. Pt also taking Buspar 10 mg 1 tab po TID and Trazodone 100 mg at bedtime. states that he is more angry, irritable, morales lately. feels he needs a stronger dose of Ativan. She states there are times when he is screaming at her. Pt very loud and angry during office visit. feels that maybe he needs to be in a group home for a little while and do some out patient counseling. Pt is agreeable, he states he wants to be in a group home. Cardio: Hx of CAD, Afib and HTN. Follows with Dr. Tejeda in Cardiology. Checks BP at home, overall stable. Denies any chest pain, sob or dizziness. On current regimen of Eliquis 5 mg 1 tab po bid, Amlodipine 10 mg 0.5 tab po bid, ASSA 81 mg daily, Potasium 10 mEq 2 tabs po TID, Pacerone 100 mg 1 tab po once daily, Losartan 25 mg once daily and Lopressor 25 mg 0.5 tab po bid. CAD/Lipid/CVA: Follows with Neurology, Dr. Aj and Dena Bazan, [facility] and Dr. Cruz in Vascular. Pt was to have sleep study done due to issues his CPAP masks, discussed Inspire device. P ton current regimen of Zetia 10 mg once daily, Eliquis 5 mg 1 tab po bid, Lipitor 40 mg once daily an ASA 81 mg daily. Pt is PT/OT and Speech due to CVA hx. [facility] and fitted him for the hand stimulator. Unsure where to go to get stimulator now that the lady at [facility] is no longer there. Pulm: Follows with Dr. Mcgrath for COPD and hx of respiratory infection and pneumonia. Pt uses O2 at night. Overall from pt and Pulm, pt is stable cu (more content not included)... [facility] Tele[facility] (INTMWS) AFSHIN ZEE ([id number]) 1955 Date Time Provider Department 04/03/24 JACI ARROYO INTMWS During your visit today, we recorded the following information about you: Rikirey ShefaliJAVI 04/03/2024 4:36 PM Signed Electronic PA rec'd and completed for lorazepam. This was approved. Prior authorization approved Payer: [employer] [phone] Note from payer: CaseId:[id number];Status :Approved;Review Type:Prior Auth;Coverage Start Date:03/04/2024;Covera ge End Date:04/03/2025; Approval Details Authorized from March 04, 2024 to April 03, 2025 Electronic appeal: Not supported View History Medication Being Authorized LORazepam (ATIVAN) 1 mg tablet Take 1-2 tablets by mouth three times a day as needed for anxiety for up to 45 days. Take 1-2 pills three times a day Dispense: 90 tablet Refills: 2 Start: 04/03/2024 End: 05/18/2024 Class: Normal Diagnoses: Anxiety, Chronic insomnia This order has been released to its destination. To be filled at: [facility]- [id number] [place] [address] - [address] [facility] [phone] [id number] Allergies As of Date: 04/03/2024 Noted Allergy Reaction LISINOPRIL 09/27/2016 7 - Swelling 18 - Angioedema Comments: Lip swelling after starting lisinopril. DOXYCYCLINE 12/11/2022 8 - GI Upset 14 - Other: See Comments Comments: GI upset (stomach ache/cramping/diarrhea ) and splotchy face SULFA (SULFONAMIDE ANTIBIOTICS) 03/11/2019 4 - Hives ZPAK (AZITHROMYCIN) 10/03/2018 4 - Hives Date Reviewed: 04/03/2024 Reviewed by: Monica Cruz MA - Fully Assessed Reason for Visit: Insurance Authorization [[id number]] Prescriptions as of 04/03/2024 - LORazepam (ATIVAN) 1 mg tablet Take 1-2 tablets by mouth three times a day as needed for anxiety for up to 45 days. Take 1-2 pills three times a day - baclofen 10 mg tablet Take 1 tablet by mouth three times a day. - multivitamin tablet Take 1 tablet by mouth once daily. - potassium chloride (K-TAB) 10 mEq tablet Take 2 tablets by mouth three times a day. - albuterol (PROVENTIL) 2.5 mg /3 mL (0.083 %) nebulizer solution INHALE 1 VIAL VIA NEBULIZER EVERY 4 HOURS NEEDED FOR WHEEZING/SHORTNESS OF BREATH. USE OVER 5-15 MINUTES - clotrimazole-betametha sone (LOTRISONE) cream Apply to affected area two times a day. - clopidogrel (PLAVIX) 75 mg tablet Take 1 tablet by mouth once daily. - amLODIPine (NORVASC) 10 mg tablet Take 0.5 tablets by mouth two times a day. Take 1/2 tablet twice daily - ezetimibe (ZETIA) 10 mg tablet Take 1 tablet by mouth once daily. - losartan (COZAAR) 25 mg tablet Take 1 tablet by mouth once daily. - ferrous sulfate (FEROSUL) 325 mg (65 mg iron) tablet Take 1 tablet by mouth two times a day. - amiodarone (PACERONE) 100 mg tablet TAKE 1 TABLET BY MOUTH ONCE DAILY *DO NOT TAKE IF HEART RATE IS LESS THAN 40* - atorvastatin (LIPITOR) 40 mg tablet take 1 tablet by mouth once daily - escitalopram oxalate (LEXAPRO) 20 mg tablet take 1 tablet by mouth once daily - apixaban (ELIQUIS) 5 mg tab(s) take 1 tablet by mouth twice daily - metoprolol tartrate, short acting, (LOPRESSOR) 25 mg tablet TAKE 1/2 TABLET BY MOUTH TWICE DAILY. HOLD IF HEART RATE IS LESS THAN 60 - busPIRone (BUSPAR) 15 mg tablet Take 1 tablet by mouth three times a day. - acetaminophen (TYLENOL EXTRA STRENGTH) 500 mg tablet Take 2 tablets by mouth three times a day as needed for pain. - zinc oxide 20 % ointment Apply to affected area as needed. - tiotropium-olodaterol (STIOLTO RESPIMAT) 2.5-2.5 mcg/actuation Inhale 2 Puffs as instructed once daily. - traZODone (DESYREL) 100 mg tablet Take 1 tablet by mouth daily at bedtime. - albuterol HFA (PROVENTIL HFA, VENTOLIN HFA) 90 mcg/actuation inhaler Inhale 2 Puffs as instructed every 4 hours as needed. - aspirin, enteric coated (ASPIRIN, ENTERIC COATED) 81 mg EC tablet Take 81 mg by mouth once daily. - fluticasone (FLONASE) 50 mcg/actuation nasal spray Use 1 [place] in each nostril twice daily. Rinse mouth after use. - Blood Pressure Monitor kit 1 application twice daily. Measure patient for correct size. Patient needs cuff for left arm readings. - COMPOUNDED PRESCRIPTION Articulating AFO foot brace for right leg. Send to [employer]. Dx: I63.9 - COMPOUNDED PRESCRIPTION EMBER WALKER DX I63.9 weight 162 # Problem List As Of Date 04/03/2024 Noted Resolved Hyperlipidemia [E78.5] 06/06/2010 Elevated blood pressure [DNZ9714] 06/06/2010 03/20/2019 Erectile dysfunction [N52.9] 06/06/2010 Cervicalgia [M54.2] 04/16/2016 Chronic right shoulder pain [M25.511, G89.29] 04/16/2016 Occlusion of left carotid artery [I65.22] 07/02/2016 Stroke (cerebrum) (HCC) [I63.9] Aneurysm (HCC) [I72.9] Essential hypertension [I10] 06/25/2017 Anxiety [F41.9] 09/04/2017 Chronic insomnia [F51.04] 04/04/2018 (more content not included)... Normal [facility] Comprehensive metabolic 2000 panelon 04-02-2024 Albumin [Mass/Vol] 4.0 g/dL Normal 3.9-4.9 [facility] Comment on above: Order Comment: Speci men Type: BLOOD SPECIMEN [facility]ing Facility: [facility] Address: [address] [place] [address] Performed By: #### 2 4323-8, 32094-2, 3016-3, 36594-2 #### [facility] CLIA [id number] [address] [place] [address] [place] ALP [Catalytic activity/Vol] 113 U/L Normal 38-113 [facility] Comment on above: Order Comment: Speci men Type: BLOOD SPECIMEN Ordering Facility: [facility] Address: [address] [place] [address] Performed By: #### 2 4323-8, 63732-9, 3016-3, 46726-5 #### [facility] CLIA [id number] [address] [place] [address] [place] ALT [Catalytic activity/Vol] 18 U/L Normal 10-54 [facility] Comment on above: Order Comment: Speci men Type: BLOOD SPECIMEN [facility]ing Facility: [facility] Address: [address] [place] [address] Performed By: #### 2 4323-8, 60963-5, 3015-3, 37696-3 #### [facility] CLIA [id number] [address] [place] [address] [place] Anion gap [Moles/Vol] 9 mmol/L Normal 8-15 [facility] Comment on above: Order Comment: Speci men Type: BLOOD SPECIMEN [facility]ing Facility: [facility] Address: [address] [place] [address] Performed By: #### 2 4323-8, 80868-9, 3015-3, 12486-3 #### [facility] CLIA [id number] [address] [place] [address] [place] AST [Catalytic activity/Vol] 18 U/L Normal 14-40 [facility] Comment on above: Order Comment: Speci men Type: BLOOD SPECIMEN [facility] Facility[facility] Address: [address] [place] [address] Performed By: #### 2 4323-8, 47822-4, 6-3, 15805-3 #### [facility] CLIA [id number] [address] [place] [address] [place] Bilirubin [Mass/Vol] 0.8 mg/dL Normal 0.2-1.3 [facility] Comment on above: Order Comment: Speci men Type: BLOOD SPECIMEN [facility] Address: [address] [place] [address] Performed By: #### 2 4323-8, 49837-9, 3015-3, 90383-9 #### [facility] CLIA [id number] [address] [place] [address] [place] Calcium [Mass/Vol] 8.7 mg/dL Normal 8.5-10.2 [facility] Comment on above: Order Comment: Speci men Type: BLOOD SPECIMEN [facility] Address: [address] [place] [address] Performed By: #### 2 4323-8, 22497-3, 3015-3, 35705-9 #### [facility] CLIA [id number] [address] [place] [address] [place] Chloride [Moles/Vol] 105 mmol/L Normal 98-107 [facility] Comment on above: Order Comment: Speci men Type: BLOOD SPECIMEN [facility] Address: [address] [place] [address] Performed By: #### 2 4323-8, 38530-8, 3015-3, 26978-3 #### [facility] CLIA [id number] [address] [place] [address] [place] CO2 [Moles/Vol] 27 mmol/L Normal 22-30 [facility] Comment on above: Order Comment: Speci men Type: BLOOD SPECIMEN [facility] Address: [address] [place] [address] Performed By: #### 2 4323-8, 00341-2, 3015-3, 96911-0 #### [facility] CLIA [id number] [address] [place] [address] [place] Creatinine [Mass/Vol] 1.28 mg/dL High 0.73-1.22 [facility] Comment on above: Order Comment: Amalia akhtar Type: BLOOD SPECIMEN [facility] Address: [address] [place] [address] Performed By: #### 2 4323-8, 83394-0, 3016-3, 49578-8 #### [facility] CLIA [id number] [address] [place] [address] [place] Creatinine and Glomerular filtration rate.predicted panel (S/P/Bld) 61 mL/min/1.73m??? Normal >=60 [facility] Comment on above: Order Comment: Amalia akhtar Type: BLOOD SPECIMEN [facility] Address: [address] [place] [address] Result Comment: Eufemia mated Glomerular Filtration Rate (eGFR) is calculated using the 2020 CKD-EPI creatinine equation. This equation utilizes serum creatinine, sex, and age as parameters. The creatinine assay has traceable calibration to isotope dilution-mass spectrometry. Refer to KDIGO guidelines for clinical interpretation. In patients with unstable renal function, e.g. those with acute kidney injury, the eGFR may not accurately reflect actual GFR. Performed By: #### 2 4323-8, 17733-3, 3016-3, 08496-4 #### [facility] CLIA [id number] [address] [place] [address] [place] Glucose [Mass/Vol] 91 mg/dL Normal 74-99 [facility] Comment on above: Order Comment: Amalia akhtar Type: BLOOD SPECIMEN [facility] Address: [address] [place] [address] Result Comment: The [place] Diabetes Association (ADA) provides guidance for cutoff values for fasting glucose and random glucose. The ADA defines fasting as no caloric intake for at least 8 hours. Fasting plasma glucose results between 100 to 125 mg/dL indicate increased risk for diabetes (prediabetes). Fasting plasma glucose results greater than or equal to 126 mg/dL meet the criteria for diagnosis of diabetes. In the absence of unequivocal hyperglycemia, results should be confirmed by repeat testing. In a patient with classic symptoms of hyperglycemia or hyperglycemic crisis, random plasma glucose results greater than or equal to 200 mg/dL meet the criteria for diagnosis of diabetes. Reference: Standards of Medical Care in Diabetes 2016, [place] [employer] Association. Diabetes Care. 2016.39(Suppl 1). Performed By: #### 2 4323-8, 65250-5, 3015-3, 70423-1 #### [facility] CLIA [id number] [address] [place] [address] [place] Potassium [Moles/Vol] 4.5 mmol/L Normal 3.7-5.1 [facility] Comment on above: Order Comment: Speci men Type: BLOOD SPECIMEN [facility] Address: [address] [place] [address] Performed By: #### 2 4323-8, 69606-0, 3, 09272-0 #### [facility] CLIA [id number] [address] [place] [address] [place] Protein [Mass/Vol] 6.6 g/dL Normal 6.3-8.0 [facility] Comment on above: Order Comment: Melvini men Type: BLOOD SPECIMEN [facility] Address: [address] [place] [address] Performed By: #### 2 4323-8, 89032-2, 3, 68535-1 #### [facility] CLIA [id number] [address] [place], [place] [address] [place] Sodium [Moles/Vol] 141 mmol/L Normal 136-144 [facility] Comment on above: Order Comment: Speci men Type: BLOOD SPECIMEN [facility] Address: [address] [place] [address] Performed By: #### 2 4323-8, 29329-2, 3015-3, 02023-3 #### [facility] CLIA [id number] [address] [place] [address] [place] Urea nitrogen [Mass/Vol] 15 mg/dL Normal 9-24 [facility] Comment on above: Order Comment: Speci men Type: BLOOD SPECIMEN [facility] Address: [address] [place] [address] Performed By: #### 2 4323-8, 78851-3, 3016-3, 64229-1 #### [facility] CLIA [id number] [address] [place], [place] [address] [place] Ferritin SerPl-ncon 2023 Ferritin [Mass/Vol] 68.0 ng/mL Normal 30.3-565.7 [facility] Comment on above: Order Comment: Speci men Type: BLOOD SPECIMENOrdering Facility: [facility] Address: [address] [place] [address] Performed By: #### 2 276-4 ####[facility] [id number] [place] [id number] [place] Iron and Iron binding capaci ty panelon 04-02-2024 Iron [Mass/Vol] 112 ug/dL Normal 41-186 [facility] Comment on above: Order Comment: Speci men Type: BLOOD SPECIMEN [facility] Address: [address] [place] [address] Performed By: #### 2 4323-8, 74862-7, 3016-3, 53575-9 #### [facility] CLIA [id number] [address] [place], [place] [address] [place] Iron binding capacity [Mass/Vol] 295 ug/dL Normal 232-386 [facility] Comment on above: Order Comment: Speci men Type: BLOOD SPECIMEN [facility] Address: [address] [place] [address] Performed By: #### 2 4323-8, 49743-5, 3, 59268-0 #### [facility] CLIA [id number] [address] [place] [address] [place] Iron/TIBC [Molar ratio] 38.0 % Normal 15.0-57.0 [facility] [place] Comment on above: Order Comment: Speci men Type: BLOOD SPECIMEN [facility] Address: [address] [place] [address] Performed By: #### 2 4323-8, 72132-8, 3, #### [facility] CLIA [id number] [address] [place] [address] [place] Lipid 1996 panelon 4 Cholesterol [Mass/Vol] 122 mg/dL Normal <200 [facility] Comment on above: Order Comment: Speci men Type: BLOOD SPECIMEN [facility] Address: [address] [place] [address] Result Comment: <200 mg/dL, Desirable 200-239 mg/dL, Borderline high >239 mg/dL, High Performed By: #### 2 4323-8, 21305-5, 3015-10, #### [facility] CLIA [id number] [address] [place] [address] [place] Cholesterol in HDL [Mass/Vol] 37 mg/dL Low >39 [facility] Comment on above: Order Comment: Speci men Type: BLOOD SPECIMEN [facility] Address: [address] [place] [address] Result Comment: 40-5 9 mg/dL, Acceptable >59 mg/dL, High: Negative risk factor for coronary heart disease <40 mg/dL, Low: Positive risk factor for coronary heart disease Performed By: #### 2 4323-8, 78201-1, 3015-3, 82963-0 #### [facility] CLIA [id number] [address] [place] [address] [place] Cholesterol in LDL [Mass/Vol] 61 mg/dL Normal <100 [facility] Comment on above: Order Comment: Amalia akhatr Type: BLOOD SPECIMEN [facility] Address: [address] [place] [address] Result Comment: <100 mg/dL, Optimal 100-129 mg/dL, Near optimal/above optimal 130-159 mg/dL, Borderline high 160-189 mg/dL, High >189 mg/dL, Very high Secondary prevention optimal LDL Cholesterol levels are recommended to be < 70 mg/dL Performed By: #### 2 4323-8, 30167-7, 3016-3, 28149-4 #### [facility] CLIA [id number] [address] [place], [place] [address] [place] [address] [place] Cholesterol in LDL/Cholesterol in HDL [Mass ratio] 1.65 {ratio} Normal <2.54 [facility] Comment on above: Order Comment: Amalia akhtar Type: BLOOD SPECIMEN [facility] Address: [address] [place] [address] Result Comment: Refe rence: 1. National Cholesterol Education Program ATP III Guideline At-A-Glance Quick Desk Reference: National Heart, Lung, and Blood [place]. National Institutes of Health. 2001: NIH Publication No. 01-3305. 2. An International Atherosclerosis Society position paper: global recommendations for the management of dyslipidemia: executive summary, Atherosclerosis. 2014: 232(2):410-413. Performed By: #### 2 4323-8, 62545-1, 3015-3, 20301-9 #### [facility] CLIA [id number] [address] [place], [place] [address] [place] [address] [place] Cholesterol in VLDL [Mass/Vol] 24 mg/dL Normal <30 [facility] Comment on above: Order Comment: Amalia akhtar Type: BLOOD SPECIMEN [facility] Address: [address] [place] [address] Performed By: #### 2 4323-8, 14095-2, 3016-3, 65249-2 #### [facility] CLIA [id number] [address] [place] [address] [place] Cholesterol non HDL [Mass/Vol] 85 mg/dL Normal <130 [facility] Comment on above: Order Comment: Speci men Type: BLOOD SPECIMEN [facility] Address: [address] [place] [address] Result Comment: <130 mg/dL, Optimal 130-159 mg/dL, Near optimal/above optimal 160-189 mg/dL, Borderline high 190-219 mg/dL, High >219 mg/dL, Very high Secondary prevention optimal non HDL Cholesterol levels are recommended to be <100 mg/dL Performed By: #### 2 4323-8, 10191-8, 3016-3, 79811-6 #### [facility] CLIA [id number] [address] [place] [address] [place] Cholesterol.total/Choles terol in HDL [Mass ratio] 3.30 {ratio} Normal <5.10 [facility] Comment on above: Order Comment: Speci men Type: BLOOD SPECIMEN [facility] Address: [address] [place] [address] Performed By: #### 2 4323-8, 21373-7, 3016-3, 32972-0 #### [facility] CLIA [id number] [address] [place] [address] [place] FASTING TIME 12 hrs Normal [facility] Comment on above: Order Comment: Speci men Type: BLOOD SPECIMEN [facility] Address: [address] [place] [address] Performed By: #### 2 4323-8, 11677-9, 3016-3, 74475-7 #### [facility] CLIA [id number] [address] [place] [address] [place] Triglyceride [Mass/Vol] 121 mg/dL Normal <150 [facility] [place] Comment on above: Order Comment: Speci men Type: BLOOD SPECIMEN [facility] Address: [address] [place] [address] Result Comment: <150 mg/dL, Normal 150-199 mg/dL, Borderline high 200-499 mg/dL, High >499 mg/dL, Very high Performed By: #### 2 4323-8, 17071-8, 3016-3, 85251-2 #### [facility] CLIA [id number] [address] [place] [address] OF [place] TSH SerPl-aCncon 04-02-2024 TSH Qn 1.420 m[IU]/L Normal 0.270-4.200 [facility] Comment on above: Order Comment: Speci men Type: BLOOD SPECIMENOrdering Facility: [facility] Address: [address] [place] [address] Performed By: #### 2 4323-8, 91682-4, 3016-3, 30708-0 ####[facility] [id number] [address] OF [place] CNPTabby [facility] AF[facility]EE ([id number]) 1955 M Date Time Provider Department 04/01/24 [facility]RO[facility] During your visit today, we recorded the following information about you: Chelly Cordero LPN 04/01/2024 9:54 AM Signed calling to check and see if lab orders for pt are fasting and if he can drink water. Advised her they are fasting orders and that he may drink water. She verbalizes understanding. Advises that she won't be able to bring him in until tomorrow. Pt has appointment Saturday with PCP. Advised her the earlier in the am they can come the better chance the results will be back in time for pt's appointment. She verbalizes understanding. Chelly Cordero LPN Allergies As of Date: 04/01/2024 Noted Allergy Reaction LISINOPRIL 09/27/2016 7 - Swelling 18 - Angioedema Comments: Lip swelling after starting lisinopril. DOXYCYCLINE 12/11/2022 8 - GI Upset 14 - Other: See Comments Comments: GI upset (stomach ache/cramping/diarrhea ) and splotchy face SULFA (SULFONAMIDE ANTIBIOTICS) 03/11/2019 4 - Hives ZPAK (AZITHROMYCIN) 10/03/2018 4 - Hives Date Reviewed: 03/23/2024 Reviewed by: Kimo Mcgrath MD - Fully Assessed Reason for Visit: Question [1327] Prescriptions as of 04/01/2024 - baclofen 10 mg tablet Take 1 tablet by mouth three times a day. - multivitamin tablet Take 1 tablet by mouth once daily. - potassium chloride (K-TAB) 10 mEq tablet Take 2 tablets by mouth three times a day. - albuterol (PROVENTIL) 2.5 mg /3 mL (0.083 %) nebulizer solution INHALE 1 VIAL VIA NEBULIZER EVERY 4 HOURS NEEDED FOR WHEEZING/SHORTNESS OF BREATH. USE OVER 5-15 MINUTES - clotrimazole-betametha sone (LOTRISONE) cream Apply to affected area two times a day. - clopidogrel (PLAVIX) 75 mg tablet Take 1 tablet by mouth once daily. - amLODIPine (NORVASC) 10 mg tablet Take 0.5 tablets by mouth two times a day. Take 1/2 tablet twice daily - ezetimibe (ZETIA) 10 mg tablet Take 1 tablet by mouth once daily. - losartan (COZAAR) 25 mg tablet Take 1 tablet by mouth once daily. - ferrous sulfate (FEROSUL) 325 mg (65 mg iron) tablet Take 1 tablet by mouth two times a day. - amiodarone (PACERONE) 100 mg tablet TAKE 1 TABLET BY MOUTH ONCE DAILY *DO NOT TAKE IF HEART RATE IS LESS THAN 40* - atorvastatin (LIPITOR) 40 mg tablet take 1 tablet by mouth once daily - famotidine (PEPCID) 20 mg tablet take 1 tablet by mouth at bedtime as needed - escitalopram oxalate (LEXAPRO) 20 mg tablet take 1 tablet by mouth once daily - apixaban (ELIQUIS) 5 mg tab(s) take 1 tablet by mouth twice daily - LORazepam (ATIVAN) 0.5 mg Take 1-2 tablets by mouth three times a day as needed for up to 90 days. - metoprolol tartrate, short acting, (LOPRESSOR) 25 mg tablet TAKE 1/2 TABLET BY MOUTH TWICE DAILY. HOLD IF HEART RATE IS LESS THAN 60 - busPIRone (BUSPAR) 15 mg tablet Take 1 tablet by mouth three times a day. - acetaminophen (TYLENOL EXTRA STRENGTH) 500 mg tablet Take 2 tablets by mouth three times a day as needed for pain. - zinc oxide 20 % ointment Apply to affected area as needed. - sildenafil (VIAGRA) 100 mg tablet Take 1 tablet by mouth once daily as needed. Take 30-60 minutes before sexual activity. - tiotropium-olodaterol (STIOLTO RESPIMAT) 2.5-2.5 mcg/actuation Inhale 2 Puffs as instructed once daily. - traZODone (DESYREL) 100 mg tablet Take 1 tablet by mouth daily at bedtime. - albuterol HFA (PROVENTIL HFA, VENTOLIN HFA) 90 mcg/actuation inhaler Inhale 2 Puffs as instructed every 4 hours as needed. - aspirin, enteric coated (ASPIRIN, ENTERIC COATED) 81 mg EC tablet Take 81 mg by mouth once daily. - fluticasone (FLONASE) 50 mcg/actuation nasal spray Use 1 [place] in each nostril twice daily. Rinse mouth after use. - Blood Pressure Monitor kit 1 application twice daily. Measure patient for correct size. Patient needs cuff for left arm readings. - COMPOUNDED PRESCRIPTION Articulating AFO foot brace for right leg. Send to [employer]. Dx: I63.9 - COMPOUNDED PRESCRIPTION EMBER WALKER DX I63.9 weight 162 # Problem List As Of Date 04/01/2024 Noted Resolved Hyperlipidemia [E78.5] 06/06/2010 Elevated blood pressure [NLJ8867] 06/06/2010 03/20/2019 Erectile dysfunction [N52.9] 06/06/2010 Cervicalgia [M54.2] 04/16/2016 Chronic right shoulder pain [M25.511, G89.29] 04/16/2016 Occlusion of left carotid artery [I65.22] 07/02/2016 Stroke (cerebrum) (HCC) [I63.9] Aneurysm (HCC) [I72.9] Essential hypertension [I10] 06/25/2017 Anxiety [F41.9] 09/04/2017 Chronic insomnia [F51.04] 04/04/2018 Right hemiplegia (HCC) [G81.91] 04/30/2018 Bradycardia [R00.1] 03/20/2019 Dysphasia [R47.02] Coronary artery disease involving [place] matos*04/02/2021 Paroxysmal atrial fibrillation (HCC) [I48.0] 04/03/2021 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 Normal [facility] OT D/C Summaryon 04-01-2024 OT D/C Summary [facility] Occupational Therapy [facility] [address] [place] [address] / REHABILITATION SERVICES DISCHARGE SUMMARY MR#: [id number] Acct: [id number] Name: AFSHIN ZEE Rep #: [id number] : 1955 68 From: Hansa Linn OTR/L, CHT Referring Dr.: Dr. Davin Kim MD Status: R EG RCR Eval Date: Discharge Date: Discharge Summary D/C Summary: It has been my pleasure to treat AFSHIN ZEE under orders from Dr. Davin Kim MD, for the diagnosis of CVA Right Hemiplegia for a total of 9 visit(s). Please see the following information for a summary of their discharge status. Overall Improvement % Improvement: 0 Goals Patient Goals: Increase ROM Goal:: pt will demo a increase in right elbow flexion to 90* to increase use of right UE with assistive ADLs by d/c Pt will demo a increase in digital AROM to initiate grasp of med. and small objects by d/c Goal:: pt and pts will demo understanding of PROM ex. to decrease risk of joint contractures by end of week 3. Pt will demo a reduction in right UE tone to MIN-MOD by d.c to decrease risk of skin break down. Pt and pts will demo understanding of using bracing to decrease tone by end of week 3. Goal:: pt and family will demo understanding of using adaptive eq. to increase pts interaction within his environment, to prevent contractures, and assist with ADLS by d.c Plan Plan: pt to be discharged at this time D/C Information Discharge Comments: pt to be discharged at this time due to plateau in progression with goals. pt looking into getting Botox to loosen up flexors of right hand and forearm. with Botox OT services would benefit pt - opening up hand, stretching out flexors and strengthening extensors. therapist ed pt and caregiver on different types of bracing to open up hand and continuing HEP and stretches. pt and caregiver demo understanding and agree to POC. Therapy session directly supervised and doc. approved by Hansa Linn OTR/L,CHT. d/c sentence: If there are questions or concerns regarding this patient's occupational therapy, please fell free to call me at [phone]. Thank you for the referral of this patient. Sincerely, MARIANN Macdonald/Hailey, CHT 04/01/24 3922 CC: Dr. Jaci Arroyo MD; Dr. Davin Kim MD MK Signed Normal [facility] SP/HP.SPREEVon 03-30-2024 SP/HP.SPREEV [facility] Speech Pathology [address] [place] [address] / REEVALUATION / MEDICARE RECERTIFICATION SPEECH THERAPY MR#: [id number] Acct: [id number] Name: AFSHIN ZEE Rep #: [id number] : 1955 68 From: Isa Kramer Referring Dr.: Dr. Davin Kim MD Insurance: [facility] Visit History Visit Info Date of Eval: 11/18/23 Visit: 1 Patient's Approved Number of Visits: 48 Insurance Date Limit: 08/04/24 Press Machine Operator: GIANLUCA History Attending Doctor: Referring Doctor: Reason for Referral: STROKE,ANKLE FX,DYSPHAGIA, APHASIA/RX HERE Medical Diagnosis: cva Previous speech therapy: Yes Results: Afshin is a 68 year old male who was seen at [facility] for a speech language and swallwoing evaluation. Pt was referred by his doctor due to ongoing communication and swallowing difficulty. Pt was accompanied by his , Vicki, who was present for the session and is his P.O.A. Other Relevant Medical History/Diagnoses/Surg memo: Afshin had a CVA 7 years ago, He was in the group home for 3 months from August 08 through October. Pt was accompanied by his who is his POA. Pt has an aac device from the [place], that he did not have present today. Pt doesn't use it often, but can use it for choosing restaurants, yes/no, Smoking Status: Former smoker Diagnosis Diagnosis: severe expressive and receptive aphasia; unspecified dysphagia Pain Is pain an issue with your current prescribed condition?: No Personal Preferred language: [place] Patient Allergies Allergies Allergies: Allergies azithromycin (From Zithromax Z-Sacha) Allergy (Intermediate, Verified 11/04/23 15:19) Hives lisinopril Allergy (Intermediate, Verified 11/04/23 15:19) Hives and diarrhea Sulfa (Sulfonamide Antibiotics) Allergy (Verified 11/04/23 15:19) Hives Previous/Current Goals Goals 1-5 Previous Goal #1: Pt will participate in a FEES study to objectively assess Pt's oropharyngeal swallow function to determine the least restrictive means of nutrition. Goal 1 Status: Goal MET: see FEES report Previous Goal #2: Pt will name common objects with up to mod cues with 70% acc to facilitate increased communication and decreased frustration on 3 measured sessions. Goal 2 Status: Goal Progressing: animals (1-2 syllables): 0/10 I, increased to 3/10 with phrase cues, increased 6/10 with phrase cues, increased to 10/10 with verbal model. food (1-2 syllables): 0/10 I, increased to 3/10 with phrase cues, increased 4/10 with phrase cues, increased to 10/10 with verbal model. Previous Goal #3: Pt will answer biographical information with up to mod cues to increase safety and ability to express information in daily medical situations over 3 measured sessions. Goal 3 Status: Goal Progressing: Pt was able to produce his information: Name- I Birthday- able to produce with verbal cue D for the month Age- Repeated 's Name- PC Aid's Name (Tete)- PC Son (Lissa) - PC Grandson (Bryan) - Repeated Address ([address], [place]) - repeated with max cues Previous Goal #4: Pt will select verbally presented common words from a choice of 4 with 80% acc independently over 3 measured sessions to increase his listening comprehension. Goal 4 Status: Goal Progressing: LC, easy level: 6/10 I, increased to 7/10 with a additional verbal prompt and a written word Previous Goal #5: Pt will select a picture of a common word that matches the written text from a choice of 4 with 80% acc independently over 3 measured sessions to increase his reading comprehension. Goal 5 Status: Goal Progressing: Reading comprehension, easy level: 5/10 I, increased to 9/10 with a verbal prompt. Goals 6-10 Previous Goal #6: Patient will use total communication approach (gestures/ASL/AAC/word s/pictures) for a variety of pragmatic functions such as, but not limited to, to requesting actions/objects/assist ance/repetition 10 times during a 60 min session across 3 measured sessions in structured/unstructure d activities. Goal 6 Status: Goal Progressing: ST edited pt's aac device to make the device more user friendly and applicable to aid him in his ADLS. Pt answered Yes/No questions from ST with 40% accuracy given a visual aid of yes/no Pt copied 3 letter words I with 50% acc, increased to 70% acc with cues to help facilitate improved spelling for aac communication Pt sang [address] with fading cues to increase his communication independence. Subjective Dysphagia Symptoms Reported Symptoms/Problems with: Difficulty Swallowing Liquids and Hx of Aspiration Current Diet Solids Current Diet: Mechanical Soft Current Diet Liquids Current Liquids: Thin Comments Pt Report: -: Pt's reports that the pt does not use straws. Reports of difficulty (more content not included)... Normal [facility] SP/SP.Stan 03-30-2024 SP/SP.PETE [facility] Speech Pathology [facility] [address] [place] [address]. [address] [place] [address] Fax REHABILITATION SERVICES PROGRESS NOTE MR#: [id number] Acct: [id number] Name: AFSHIN ZEE Rep #: [id number] : 1955 68 From: Isa Kramer Referring Dr.: Dr. Davin Kim MD Status:REG RCR Insurance: [facility] Patient Information Date of Evaluation: 03/09/24 Time of Evaluation: 10:15 Diagnosis: oropharyngeal dysphagia Referring Physician: Yaneli Staff Providing this Care/Treatment:: GIANLUCA Direct Billable Minutes: 120 History: Past Medical History:: Afshin is a 68 year old male who was seen at for a swallow evaluation to determine an appropriate POC for speech therapy treatment due to reports of s/s of aspiration. Pt had a MBSS study completed in August 2021, which recommended a diet of regular/thin with the use of compensatory strategies. TX/DX History:: Yes and MBSS Subjective: Subjective:: Pt arrived for the swallow evaluation with his aid, Tete and was agreeable throughout the assessment. Current Diet: Drinks/Liquids:: Thin Foods:: Regular Medication Administration:: orally Supervision: 1:1 Close Supervision Respiratory Status Observation:: room air Dentition/Oral Hygiene: Observations:: WFL Vocal Quality: Observations:: WFL Comments:: Unable to fully assess due to difficulty with speech s.p. a cva. Cognition: Observations:: WFL Position During FEES: Position During FEES:: Upright Location: In Chair Fiberoptic Endoscope: Size: 3.4 mm Nare Used:: Right Comments: The scope was passed through the pt's right nare without difficulty. Anatomy: Velum Movement: Yes and Symmetrical Nasopharynx Tissue Description: Moist and [place] red Secretions: Description:: Thick, Clear and White Location:: Hypopharynx and Diffuse Phonation: Arytenoid Adduction: WFL Comment:: Elicited via vocal tasks Vocal Fold Adduction: WFL Comment:: Elicited via vocal tasks Penetration-Aspiration Scale Penetration-Aspiration Scale Thin Liquids by Single Straw Food/Drink Provided:: water Swallow Onset Location:: Pyriform Sinuses PAS Score: PAS Score *1 Visual Analysis of Swallowing Efficiency and Safety (VASES) after the swallow: Hypopharynx and Laryngeal Vestibule Comments:: min residue in the right pyriform sinus Additional Comments:: Poor pharyngeal contraction notes during sips of thin via straw Thin Liquids by Sequential Straw Food/Drink Provided:: water Puree Textures Food/Drink Provided:: apple sauce Swallow Onset Location:: Pyriform Sinuses PAS Score: PAS Score *1 Soft Bite Sized Textures Food/Drink Provided:: mixed fruit with and without liquids. Swallow Onset Location:: Vallecula and Pyriform Sinuses PAS Score: PAS Score *1 Visual Analysis of Swallowing Efficiency and Safety (VASES) after the swallow: Hypopharynx Comments:: liquid residue in the right pyriform post swallow Strategies Trialed:: right head turn Regular Textures Food/Drink Provided:: cookie Swallow Onset Location:: Vallecula PAS Score: PAS Score *1 Comments:: One cookie per bite: min residue remaining in the vallecula and lateral to the epiglottis Two cookies per bite: mod residue in the right pyriform sinus Strategies Trialed:: Liquid wash via straw: pt with a PAS score of 6 during a liquid wash to clear residue from the cookie bites. Right head turn: residue on the right side of the aryepiglottic fold Right head turn + liquid wash: effective in clearing the residue Diagnosis/Impressions Diagnosis: mild oropharyngeal dysphagia Swallowing Impairment: Difficulty Following Directions, Impaired Oropharyngeal Transport, Premature Posterior Loss and Decreased Pharyngeal Contraction Recommendations Diet: Regular Textures Compensatory Strategies: Small Bites, Small Sips, Slow Rate, Right head turn when swallowing, Alternate bites/solids and sips/liquids, Sitting upright, Remain sitting upright for 30 minutes after PO intake and Assist with verbal cues to use recommended strategies Supervision: 1:1 Close Supervision Recommend Repeat Instrumental Swallow Assessment: TBD Comments: right head turn with regular textures. head turn optional for pureed and soft bite sized foods. Need for Skilled Speech Therapy Services: Yes Education Completed: 1. Described result of evaluation. and 2. Pt understands evaluation agrees with goals and treatment plan. Frequency Frequency: 1-2x /Week Duration: 4-6 Months Goals that are Established Determination:: Goals will be added/modified as deemed necessary and appropriate. Therapy will be discontinued when results of re-evaluation indicate therapy is no longer needed or lack of progress has been documented. Goal #1: Pt will complete oropharyngeal exercises for 10 reps, 2x/day with min cues to improve airway prote (more content not included)... Normal [facility] PT D/C Summary (1)on 024 PT D/C Summary (1) [facility] Physical Therapy [facility] [address] [place] [address]. [address] [place] [address] / REHABILITATION SERVICES DISCHARGE SUMMARY MR#: [id number] Acct: [id number] Name: AFSHIN ZEE Rep #: [id number] : 1955 68 From: Myron Gillette DPT Referring Dr.: Dr. Davin Kim MD Status: R EG RCR Insurance: [facility] Discharge Summary D/C summary: It has been my pleasure to treat AFSHIN ZEE referred by Dr. Davin Kim MD, with the diagnosis of R ankle Fracture for a total of 11 visit(s). Discharge Date: 03/25/24 Please see the following information for a summary of their discharge status. Subjective Subjective: Pt. reports overall doing well. No pain noted. Pt. reports no falls or issues since starting PT. Overall Improvement % Improvement: 80 Objective Objective/Function: TU.7sec with SPC GAIT: Pt. ambulates 375' with SPC with SUP A. Pt. continues to have increased R hip ER with swing phase, but most likely due to lack of DF on R side. No LOB, but does have decreased tempo and decreased step length. 30sec sit to stand rep test: 12 without use of UEs. Overall doing well. No pain noted. I want Afshin to continue with walking with spouse and focus on mobility, quad strengthening at home. Goals Goal 1:: LTG: Pt. to be I with HEP. Goal Progress: Goal Met Goal 2:: LTG: Pt. to have increased R quad and glute strength increased by 1/2 grade to aid in functional mobility. Goal Progress: Goal Met Goal 3:: LTG: Pt. to have increased 30 sec sit to stand rep test to 13 without use of LUE for stability indicating increased BLE functional strength. Goal Progress: Progressing Goal 4:: LTG: Pt. to ambulate at least 350' with SPC vs small based quad cane GABRIELE allowing for increased community ambulation. Goal Progress: Goal Met Goal 5:: LTG: Pt. to have improved TUG score to less than 40seconds indicating increased functional stability. Goal Progress: Goal Met Plan Plan: pt. will be DC from PT at this point in time. D/C Information d/c sentence: If there are questions or concerns regarding this patient's physical therapy, please feel free to call me at [phone]. Thank you for the referral of this patient. Sincerely, Myron Gillette, DPT Balance/Gait/Functiona l tests Balance/Special Test Scores Lower Extremity Functional Score: 34 TUG Test Time Seconds: 18.7 Tug Test: <20 sec.=mostly independent 30 Second Chair Rise Test Seconds: 12 Improvement % Improvement: 80 03/25/24 1720 CC: Dr. Jaci Arroyo MD; Dr. Davin Kim MD CLS Signed Normal [facility] CNOVon 03-23-2024 CNOV Office Visit (PULMWS ) AFSHIN ZEE ([id number]) 1955 M Date Time Provider Department 03/23/24 2:45 PM KIMO MCGRATH PULMWS During your visit today, we recorded the following information about you: Kimo Mcgrath MD 03/23/2024 3:36 PM Signed . Respiratory [place] Note Patient name: Afshin Zee PCP: Jaci Arroyo MD CC: Follow-up COPD HPI: Afshin Zee 68 year old male former [id number] smoker, quitting in 2016 with PMH significant for AF on amiodarone, CVA with late effects, CAD s/p CABG, PAD, HTN, CKD, emphysema, DARON not on CPAP, nocturnal oxygen requirement presenting for follow-up. He has a history of previous tracheostomy tube following his stroke but was able to be decannulated. Current inhaled therapy consists of Stiolto Respimat with as needed albuterol. Last lung cancer screening at [facility] negative for any suspicious lesions. From a respiratory standpoint his states that he has been doing well. He has no specific complaints today. He is on Stiolto Respimat. She states that he will occasionally require albuterol in the evening. Since his last office visit he did sustain a fall and broke his ankle, requiring open reduction internal fixation. He has respiratory infection or pneumonia. DME: [employer] 4 L nocturnal oxygen DATA: Imaging / Diagnostic Studies: 05/22/2023, 2:56 PM [facility] Low Dose CT Lung Screening NODULES: No suspicious nodules are seen. Emphysema: Hyperinflation. Emphysematous changes. Stable increased linear markings with areas of confluence in the anterior right upper lobe suggestive of a scarring. Mild degree of bronchiectasis in the perihilar regions bilaterally. Mild linear scarring in the lingular segment of the left upper lobe. Endobronchial lesion: None Aorta: Atherosclerotic calcification of the aortic arch. CORONARY ARTERIES: Coronary artery calcification is seen. Status post CABG. Heart: Unremarkable. Pulmonary artery: Unremarkable. Mediastinal nodes: Unremarkable Other chest and abdominal findings: Stable cyst in the posterior midportion of the right kidney. CT/Low Dose CT Lung Screening IMPRESSION: Lung-RADS category 2 - Continue annual screening with LDCT in 12 months. Review of imaging shows emphysema and right upper lobe scar PAST MEDICAL HISTORY No date: Acute cerebral infarction ([facility]) Comment: left No date: LEANN (acute kidney injury) ([facility]) No date: Anemia No date: Aneurysm ([facility]) No date: Anxiety state 11/2016: Atrial fibrillation ([facility]) No date: Balanitis No date: CAD (coronary artery disease) No date: Carotid stenosis No date: COPD (chronic obstructive pulmonary disease) ([facility]) No date: Dysphasia No date: Emphysema lung ([facility]) 03/2023: History of blood transfusion No date: Hypertension 03/2023: Hypoxia No date: DARON (obstructive sleep apnea) No date: PVD (peripheral vascular disease) ([facility]) No date: Respiratory failure ([facility]) Comment: hypoxic-ventilator dependent No date: Stroke (cerebrum) ([facility]) No date: Tobacco abuse ALLERGIES Allergen Reactions Lisinopril Swelling, Angioedema Lip swelling after starting lisinopril. Doxycycline GI Upset, Other: See Comments GI upset (stomach ache/cramping/diarrhea ) and splotchy face Sulfa (Sulfonamide * Hives Zpak [Azithromycin] Hives multivitamin tablet Take 1 tablet by mouth once daily. potassium chloride (K-TAB) 10 mEq tablet Take 2 tablets by mouth three times a day. albuterol (PROVENTIL) 2.5 mg /3 mL (0.083 %) nebulizer solution INHALE 1 VIAL VIA NEBULIZER EVERY 4 HOURS NEEDED FOR WHEEZING/SHORTNESS OF BREATH. USE OVER 5-15 MINUTES clopidogrel (PLAVIX) 75 mg tablet Take 1 tablet by mouth once daily. amLODIPine (NORVASC) 10 mg tablet Take 0.5 tablets by mouth two times a day. Take 1/2 tablet twice daily ezetimibe (ZETIA) 10 mg tablet Take 1 tablet by mouth once daily. losartan (COZAAR) 25 mg tablet Take 1 tablet by mouth once daily. ferrous sulfate (FEROSUL) 325 mg (65 mg iron) tablet Take 1 tablet by mouth two times a day. amiodarone (PACERONE) 100 mg tablet TAKE 1 TABLET BY MOUTH ONCE DAILY *DO NOT TAKE IF HEART RATE IS LESS THAN 40* atorvastatin (LIPITOR) 40 mg tablet take 1 tablet by mouth once daily escitalopram oxalate (LEXAPRO) 20 mg tablet take 1 tablet by mouth once daily apixaban (ELIQUIS) 5 mg tab(s) take 1 tablet by mouth twice daily metoprolol tartrate, short acting, (LOPRESSOR) 25 mg tablet TAKE 1/2 TABLET BY MOUTH TWICE DAILY. HOLD IF HEART RATE IS LESS THAN 60 busPIRone (BUSPAR) 15 mg tablet Take 1 tablet by mouth three times a day. tiotropium-olodaterol (STIOLTO RESPIMAT) 2.5-2.5 mcg/actuation Inhale 2 Puffs as instructed once daily. traZODone (DESYREL) 100 mg tablet Take 1 tablet by mouth daily at bedtime. albuterol HFA (PROVENTIL HFA, VENTOLIN HFA) 90 mcg/ac (more content not included)... Normal [facility] Re-Evaluation - PT (1)on Re-Evaluation - PT (1) [facility] Physical Therapy [address] [place] [address] / REEVALUATION / MEDICARE RECERTIFICATION PHYSICAL THERAPY MR#: [id number] Acct: [id number] Name: AFSHIN ZEE Rep #: [id number] : 1955 68 From: Myron Gillette DPT Referring Dr.: Dr. Davin Kim MD Status:REG RCR Insurance: [facility] Re-Evaluation Intro: Dr. Davin Kim MD, It has been my pleasure to treat AFSHIN ZEE over the last 7 visits for R ankle Fracture. Please see the progress note below for an update on the physical therapy plan of care! Subjective Subjective: Pt. reports overall doing fine. reports that he might have fallen in the night, because she found his cane on the floor near the bathroom and he was in bed. This occurred a few weeks ago. No injury of note. Pt. otherwise has no complaints. Objective Objective/Function: TUG 31.1sec with SPC Pt. was able to ambulate 246feet before needing to sit down. Pt. reports fatigue as limiting factor, no pain. MMT: LLE: ankle 5/5 throughout; knee: ext 5/5, flexion 5/5; hip: flexion 5/5, abd 4/5, ext 4/5. RLE: ankle 0/5 throughout; knee: ext 4/5, flexion 4-/5; hip: flexion 4/5, abd 4-/5, ext 4/5. Pt. has been progressing with his balance and stability. He is walking much further. He is still very impulsive with his mobility. I would like him to have a bit better endurance with gait and better safety with use of cane. pt. and spouse agree and would like to continue with PT with focus on balance and functional mobility. Plan Plan Plan: Cont. with PT focus on functional mobility, sit to stand LE strengthening and gait progression with cane. Balance/Gait/Functiona l tests Balance/Special Test Scores Lower Extremity Functional Score: 27 TUG Test Time Seconds: 50.7 Tug Test: >30sec.=impaired mobility 30 Second Chair Rise Test Seconds: 8 Goals Goals Goal 1:: LTG: Pt. to be I with HEP. Goal Time Frame: 4-6 Weeks Goal 2:: LTG: Pt. to have increased R quad and glute strength increased by 1/2 grade to aid in functional mobility. Goal Time Frame: 4-6 Weeks Goal 3:: LTG: Pt. to have increased 30 sec sit to stand rep test to 13 without use of LUE for stability indicating increased BLE functional strength. Goal Time Frame: 4-6 Weeks Goal Progress: Progressing Goal 4:: LTG: Pt. to ambulate at least 350' with SPC vs small based quad cane GABRIELE allowing for increased community ambulation. Goal Time Frame: 4-6 Weeks Goal Progress: Progressing Goal 5:: LTG: Pt. to have improved TUG score to less than 40seconds indicating increased functional stability. Goal Time Frame: 4-6 Weeks Goal Progress: Goal Met Anticipated Interventions Anticipated Interventions Patient/Client Instruction: Educate patient on: Condition, Plan of Care, Risk Factors and Benefits of Fitness Program For the Purpose of:: To improve decision making, To facilitate caregiver knowledge, To improve self management, To prevent re-injury and To improve ability to perform tasks related to life management Therapeutic Exercise to Include: Strength training, Power training, Endurance training, Balance training, Body mechanics, Postural training and Gait and locomotor training For the Purpose of:: To decrease pain, To decrease swelling/inflammation, To increase ROM, To improve nutrient delivery to tissue, To increase oxygenation perfusion and To improve muscle perf ormance and motor function Re-Evaluation Ending Re-evaluation ending: Please do not hesitate to contact me at [phone] by phone or if you have questions or concerns regarding this new plan of care! Sincerely, Myron Gillette, DPT 02/18/24 1318 CC: Dr. Jaci Arroyo MD; Dr. Davin Kim MD CLS Signed For Medicare only, by signing this I certify the plan of care. Physicians Signature Date Normal [facility] Inital Evaluation (1) - PTon 11-19-2023 Inital Evaluation (1) - PT [facility] Physical Therapy [address] [place] [address] / REHABILITATION SERVICES INITIAL EVALUATION MR#: [id number] Acct: [id number] Name: AFSHIN ZEE Rep #: [id number] : 1955 68 From: Myron Gillette DPT Referring Dr.: Dr. Davin Kim MD Status: R EG RCR Insurance: [facility] Patient's Visit Information Visit Information Visit Information: AFSHIN ZEE is a 68 year old M referred to Physical Therapy by Dr. Davin Kim MD with a diagnosis of R ankle Fracture. Date of Evaluation: 11/18/23 Physical Therapist: Myron Gillette DPT Visit Plan Frequency: 2x /Week Duration: 6 Weeks Plan: Start with RLE strengthening, functional strengthening, quad strengthening. Gait progression with SPC vs small base quad cane. Subjective Subjective: Pt. is here today for his initial evaluation with diagnosis of R ankle fracture with ORIF. Pt. fell in Jul. he went to group home for a few weeks. He is now back home with spouse. 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 He does not have much movement in his R UE, but is able to move with RLE, except his ankle where he has marked foot drop on his R side. Pt. arrives using WC this date. He reports no pain. Pt. does have expressive aphasia from his previous CVA. Pt's spouse reports that he has tried walking in the house by him self. Pt. had previously used a SPC for gait and was able to walk in/out grocery stores. Pt. does not have any precautions at this point in time. Objective Objective: POSTURE: Pt. is able to stand without AD, but does have a lean to the L side. This is normal for him since his CVA. Better posture noted with use of cane. PALPATION: Pt. reports no pain with palpation of RLE. No signs of infection or DVT. ROM: AROM: 0 deg throughout R ankle; knee: ext 0deg, Flexon 119deg. PROM: WNL. MMT: LLE: ankle 5/5 throughout; knee: ext 5/5, flexion 5/5; hip: flexion 5/5, abd 4/5, ext 4/5. RLE: ankle 0/5 throughout; knee: ext 4/5, flexion 4-/5; hip: flexion 4/5, abd 4-/5, ext 4/5. GAIT: Pt. was able to ambulate wtih SPC in LUE. Pt. has minimal knee flexion during R swing. Decreased B step length, R leg in ER positioning in stance. Pt. was able to ambulate 35 feet with CGA wand SPC. Pt. has decreased RLE foot clearance, but was able to clear with each step. Fatigue was limiting factor with gait. STAIRS: Pt. negotiated with step to pattern with use of 1 HR and CGA. Fatiguing. Balance/Special Test Scores Lower Extremity Functional Score: 27 TUG Test Time Seconds: 50.7 30 Second Chair Rise Test Seconds: 8 Goals Goal 1:: LTG: Pt. to be I with HEP. Goal Time Frame: 4-6 Weeks Goal 2:: LTG: Pt. to have increased R quad and glute strength increased by 1/2 grade to aid in functional mobility. Goal Time Frame: 4-6 Weeks Goal 3:: LTG: Pt. to have increased 30 sec sit to stand rep test to 13 without use of LUE for stability indicating increased BLE functional strength. Goal Time Frame: 4-6 Weeks Goal 4:: LTG: Pt. to ambulate at least 350' with SPC vs small based quad cane GABRIELE allowing for increased community ambulation. Goal Time Frame: 4-6 Weeks Goal 5:: LTG: Pt. to have improved TUG score to less than 40seconds indicating increased functional stability. Goal Time Frame: 4-6 Weeks Rehabilitation Potential Physical Therapy Diagnosis: Pt. ahs signs and symptoms consistent with general debility after a R ankle fracture late last year. He is having more difficulty with walking, endurance and stability since falling and fracturing his ankle. Pt. would benefit from PT to address the above limitations progressing back to all previous activities without limitations. Rehabilitation Potential: Good Anticipated Interventions Patient/Client Instruction: Educate patient on: Condition, Plan of Care, Risk Factors and Benefits of Fitness Program For the Purpose of:: To improve decision making, To facilitate caregiver knowledge, To improve self management, To prevent re-injury and To improve ability to perform tasks related to life management Therapeutic Exercise to Include: Strength training, Power training, Endurance training, Balance training, Body mechanics, Postural training and Gait and locomotor training For the Purpose of:: To decrease pain, To decrease swelling/inflammation, To increase ROM, To improve nutrient delivery to tissue, To increase oxygenation perfusion and To improve muscle performance and motor function Text: Thank you for the opportunity to evaluate your patient. For Medicare and Medicare HMO plans, please review the plan of care and approve it. It will need to be FAXED BACK to us at [phone] for Medicare purposes. For Medicare only, by signing this I certify the plan of care. Please let me know if there are questions or concerns regarding this plan of care. (more content not included)... Normal [facility] OT General Evaluationon 11-03 OT General Evaluation [facility] Occupational Therapy [facility] [address] [place] [address] / REHABILITATION SERVICES INITIAL EVALUATION MR#: [id number] Acct: [id number] Name: AFSHIN ZEE Rep #: [id number] : 1955 68 From: Hansa WAITE/SOSA Hart Referring Dr.: Dr. Davin Kim MD Status: R EG RCR Insurance: [facility] Date: [facility] Patient's Visit Information Visit Information Visit Information: AFSHIN ZEE is a 68 year old M, referred to Occupational Therapy by Dr. Davin Kim MD, with a diagnosis of CVA Right Hemiplegia. Date of Evaluation: 11/18/23 Occupational Therapist: MARIANN Macdonald/SOSA Hart Subjective Subjective: This 68 year old male was seen for OT eval with dx of CVA and right side hemiplegia. Pt is well known to our facility as he was seen in past for rehab following his initial stroke. Pt arrives with - states was ambulating with can and pt had fall trying to walk with his cane after he had some wine. states they were going to go out for the evening-but when he fell he refused to go to ER since he did have a few glasses of wine. states she elevated his leg and put ice on it. The next day he did go to ER. pt required sx. sx on Sep.07. for ORIF of right LE. pt arrives in . now walking with Ember walker ( Dr. Kim does not want him walking without Ember Walker) not able to reduce support with assistive device at this time. states his left shoulder and upper scapula do become tight from using left UE for functional transfers right UE no return of AROM has concerns of how tight his hand is getting. is using resting hand brace during the day and has a bioness unit she will use every other day to see if she can get hand open. with unit he can open hand but unable without unit. ADLs Comments: pt will wear resting hand brace during the day and next day will use the Bioness unit. assist with all ADLs and IADLs. ( aide helps shaves) pts does have respite ( 21 hours ) rest up to (36 hours) Pain right shoulder: Current Pain Intensity: 7 Pain Intensity Range: 8 ROM Shoulder: right UE PROM to 115* ( flaccid ) left WNL Elbow: right PROM 0/130 with noted tone Forearm: right PROM WFL noted Mod tone Wrist: right PROM WFL noted Max tone ROM Comments: pt demo with right shoulder shrug 1/4 trials- pt attempts biceps but will compensate with scapula retraction fingers are fisted no noted ext. of digits Sensation Sensation Comments: denies states full feeling right side Movement Muscle Tone: right UE- Movement Comments: pt demo with Mod tone of right forearm supination Pt demo with MOD tone right wrist ext- MOD- Max tone of digits therapist use wrist flexion positron to manually straighten fingers with slow wrist motion to increase wrist from flexion to Neutral fingers will flex noted increase in tone. Stroke Specific Quality of Life Total SS-QOL Score: 80 Quick DASH-Disab of Arm,Shoulder Hand Quick DASH Score: 70.4525 Goals Goal:: pt will demo a increase in right elbow flexion to 90* to increase use of right UE with assistive ADLs by d/c Pt will demo a increase in digital AROM to initiate grasp of med. and small objects by d/c Goal:: pt and pts will demo understanding of PROM ex. to decrease risk of joint contractures by end of week 3. Pt will demo a reduction in right UE tone to MIN-MOD by d.c to decrease risk of skin break down. Pt and pts will demo understanding of using bracing to decrease tone by end of week 3. Goal:: pt and family will demo understanding of using adaptive eq. to increase pts interaction within his environment, to prevent contractures, and assist with ADLS by d.c Rehabilitation General Assessment: pt demo with a increase tone of right UE elbow and forearm supination. Max tone in digits- pt demo with trace of shoulder elevation not noted shoulder flexion. Due to loss of AROM of right UE this has increases pts need of Asst. with ADLs. Pt would benefit from skilled OT services 2x week for 4 weeks to decrease tone of right UE- would like to see if pt play his guitar again with adaptive equipment. Will speak with on what motion pt would need to get to be able to play as well as adaptive stand. Therapist will also problem solve with on further bracing to decrease risk of joint contractures of right hand/wrist. Pt may benefit from Botox injections to forearm to decrease the flexor contraction of right hand. Therapist discussed with pt and pts she was receptive . pt will schedule 2x week for 4 weeks for skilled OT services. Pt and pts demo understanding and agree to POC. Rehabilitation Potential: Questionable Anticipated Interventions Anticipated Interventions: A/AAROM/PROM, Orthoses, Joint Protection/Energy Conservation, (more content not included)... Normal [facility] SP/HP.SP.Giovanny 11-19-2023 SP/HP.SP.EV [facility] Speech Pathology [address] [place] [address] / REHABILITATION SERVICES INITIAL EVALUATION MR#: [id number] Acct: [id number] Name: AFSHIN ZEE Rep #: [id number] : 1955 68 From: Isa Kramer Referring Dr.: Dr. Davin Kim MD Status: R EG RCR Insurance: [facility] Visit History Visit Info Date of Eval: 11/18/23 Visit: 1 Insurance Date Limit: 08/04/24 Press Machine Operator: GIANLUCA History Attending Doctor: Referring Doctor: Reason for Referral: STROKE,ANKLE FX,DYSPHAGIA, APHASIA/RX HERE Medical Diagnosis: cva Previous speech therapy: Yes Results: Afshin is a 68 year old male who was seen at [facility] for a speech language and swallwoing evaluation. Pt was referred by his doctor due to ongoing communication and swallowing difficulty. Pt was accompanied by his , Vicki, who was present for the session and is his P.O.A. Other Relevant Medical History/Diagnoses/Surg memo: Afshin had a CVA 7 years ago, He was in the group home for 3 months from August 08 through October. Pt was accompanied by his who is his POA. [facility], that he did not have present today. Pt doesn't use it often, but can use it for choosing restaurants, yes/no, Smoking Status: Former smoker Diagnosis Diagnosis: severe expressive and receptive aphasia; unspecified dysphagia Pain Is pain an issue with your current prescribed condition?: No Personal Preferred language: [place] Patient Allergies Allergies Allergies: Allergies azithromycin [From Zithromax Z-Sacha] Allergy (Intermediate, Verified 11/04/23 15:19) Hives lisinopril Allergy (Intermediate, Verified 11/04/23 15:19) Hives and diarrhea Sulfa (Sulfonamide Antibiotics) Allergy (Verified 11/04/23 15:19) Hives Subjective Dysphagia Symptoms Reported Symptoms/Problems with: Difficulty Swallowing Liquids and Hx of Aspiration Current Diet Solids Current Diet: Mechanical Soft Current Diet Liquids Current Liquids: Thin Comments Pt Report: -: Pt's reports that the pt does not use straws. Reports of difficulty with mastication of tough food and needs assistance with using compensatory strategies re; small sips bites, slow rate. Pt's cuts up his food smaller. No specific report of coughing and choking during meal. Pt's stated that this does happen, but pt might have allergies. Pt had a previous MBSS in 2021 and has not had updated testing since then. Pt previously had a PEG tube and trach after his CVA 7 years ago, which were removed not long after the cva. Pt has had aspiration pnuemonia three times. Objective Dysphagia Swallowing Impairment Contributing Factors to Swallowing Impairment: Difficulty Following Directions Impact Impact on Safety Functioning: Risk for Aspiration Comments: three prior cases of aspiration pneumonia. Pt requires updated instrumental testing due to concerns for aspiration and a history of dysphagia. Pt's last instrumental assessment was an MBSS in 2021. Discussed options for instrumental testing re; MBSS and FEES. Pt's requested the FEES assessment as it can be done at [facility]. Recommendations Swallowing Treatment: Yes Diet Texture Recommendations Other: Pt's currently cuts up the pt's food into small bites due to difficulty with swallowing, evidenced by coughing and choking, with large pieces of food. Pt also avoids straws due to difficulty with thin liquids via straw per caregiver report. Safety Saftey Precautions/Swallowing Recommendations (Check all that Apply): Supervision Needed All Meals, Reduce Distractions, Needs Verbal Cues to Use Recommended Strategies, Upright Position at Least 30 Minutes After Meals, Small Sips Bites when Eating and No Straw Results Swallowing Within Normal Limits: No Swallowing Diagnosis: Dysphagia Unspecified (R13.10) Subjective AAC AAC Subjective: Pt has an aac device from [facility] for basic communication needs. Pt can use the device to pick a place to eat, ask for food at restaurants and answer yes/no questions with help from his . Further practice to effectively utilize the device is required per pt's 's report. Objective Cog/Ling/Com Test Administered Zrdlzsopj-Kuxvjmfbte-W ommunication Assessment Administered: Yes Ynpezciek-Xbkyqnpcfs-U ommunication Assessment: Cognitive ??? Linguistic skills were evaluated using patient/family interview, skilled observation and informal evaluation through tasks completed by the patient. Orientation Orientation: Person, Birthdate and Medical Diagnosis Answer Yes/No Questions Simple: Moderate Comments Comments: Yes/No Questions (provided a yes/no visual to point to to aid verbal speech): 70% acc. Pt stated yeah but pointed to the no visual while shaking his head multiple times dur (more content not included)... Normal [facility] Ankle min 3 Viewson 11-04-19 Ankle min 3 Views [facility] [address] [address] [address] Ankle min 3 Views MR#: [id number] Acct: [id number] Name: AFSHIN ZEE Rep #: [id number] : 1955 M 68 From: Brian Arguello MD PCP: Dr. Jaci Arroyo MD Status: REG AMB Study: Ankle min 3 Views Date of Exam: 11/04/23 Exam# [id number] Ordering Dr: Davin Kim MD [id number] STUDY: X-RAY - RIGHT ANKLE REASON FOR EXAM: Male, 68 years old. Follow-up after ORIF of tibia and fibula. TECHNIQUE: 3 view(s) of the ankle. COMPARISON: 09/26/2023 FINDINGS: Osteopenia. Stable placement of 2 cancellus screws through the medial malleolus with long intramedullary rito in the distal fibula with 3 interconnecting distal cancellus screws. No change in position or alignment of the fixation. Stable arthrosis of the tibiotalar joint, subtalar joint and mid foot. Stable calcaneal spurs. Diffuse soft tissue swelling. RAD/Ankle min 3 Views IMPRESSION: Stable osteopenia, osteoarthritic changes and ORIF of distal tibia/medial malleolus and distal fibula. No complicating features. Electronically Signed: Brian Arguello MD at 15:46 EDT Reading Location ID and State: [address] [place] [address] , Service support , CC: Dr. Jaci Arroyo MD; Dr. 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 Davin ba MD Age/Sex: 68/M Location: [facility] Status: Signed Intake Vital Signs 08/07/23 14:17 Height 5 ft 10 in Intake Visit Reasons: RIGHT ANKLE Chief Complaint: ORIF RT Ankle Accompanied by: Self Is patient in pain?: Yes Pain scale (1-10): 0 Allergies azithromycin [From Zithromax Z-Sacha] Allergy (Intermediate, Verified 11/04/23 15:19) Hives lisinopril Allergy (Intermediate, Verified 11/04/23 15:19) Hives and diarrhea Sulfa (Sulfonamide Antibiotics) Allergy (Verified 11/04/23 15:19) Hives Medications famotidine 20 mg tablet 20 mg PO QHS PRN PRN Gastric Reflux 12/21/16 [History Confirmed 11/04/23] baclofen 10 mg tablet 5 mg (1/2 x 10 mg) PO TID 02/05/17 [Rx Confirmed 11/04/23] multivitamin,tx-iron-m inerals (Complete Multivitamin tablet) 1 tab PO DAILY vitamin 12/04/18 [History Confirmed 11/04/23] potassium chloride 10 mEq tablet,extended release 20 meq (2 x 10 mEq) PO TID potassium #90 tabs 04/19/20 [Rx Confirmed 11/04/23] ezetimibe 10 mg tablet 10 mg PO DAILY 04/22/21 [History Confirmed 11/04/23] escitalopram oxalate 20 mg tablet 20 mg PO DAILY antidepressant 06/11/21 [History Confirmed 11/04/23] menthol 0.44 %-zinc oxide 20.6 % topical ointment (Calmoseptine) 1 applic topical TID PRN Diaper Rash #0 grams 06/17/21 [Rx Confirmed 11/04/23] amiodarone 100 mg tablet 100 mg PO DAILY HEART 07/11/21 [History Confirmed 11/04/23] albuterol sulfate 90 mcg/actuation aerosol inhaler (Ventolin HFA) 2 inh inhalation Q4H PRN shortness of breath or wheezing #18 grams 05/29/22 [Rx Confirmed 11/04/23] IV poll #1 ea 08/07/22 [Rx Confirmed 11/04/23] buspirone 10 mg tablet 10 mg PO TID ANXIETY 08/16/22 [History Confirmed 11/04/23] trazodone 50 mg tablet 100 mg PO QHS DEPRESSION 08/16/22 [History Confirmed 11/04/23] miconazole nitrate 2 % topical cream 1 applic topical BID 14 days #15 grams 08/17/22 [Rx Confirmed 11/04/23] amlodipine 5 mg tablet 5 mg PO BID 11/11/22 [History Confirmed 11/04/23] apixaban 5 mg tablet (Eliquis) 5 mg PO BID 11/11/22 [History Confirmed 11/04/23] clopidogrel 75 mg tablet (Plavix) 75 mg PO DAILY anti platelet 11/11/22 [History Confirmed 11/04/23] fluticasone propionate 50 mcg/actuation nasal spray,suspension (Flonase Allergy Relief) 2 spray intranasal DAILY #16 grams 03/04/23 [Rx Confirmed 11/04/23] tiotropium 2.5 mcg-olodaterol 2.5 mcg/actuation mist for inhalation (Stiolto Respimat) 2 puff inhalation DAILY 05/29/23 [History Confirmed 11/04/23] albuterol sulfate 2.5 mg/3 mL (0.083 %) solution for nebulization 2.5 mg continuous nebulization Q6H PRN shortness of breath or wheezing 08/02/23 [History Confirmed 11/04/23] aspirin 81 mg capsule 81 mg PO DAILY 08/02/23 [History Confirmed 11/04/23] atorvastatin 40 mg tablet 40 mg PO DAILY 08/02/23 [History Confirmed 11/04/23] ferrous sulfate 325 mg (65 mg iron) tablet (FeroSul) 325 mg PO DAILY 08/02/23 [History Confirmed 11/04/23] lorazepam 0.5 mg tablet 0.5 mg PO Q8H PRN agitation 08/02/23 [History Confirmed 11/04/23] losartan 25 mg tablet 25 mg PO DAILY 08/02/23 [History Confirmed 11/04/23] metoprolol tartrate 25 mg tablet 12.5 mg PO BID 08/02/23 [History Confirmed 11/04/23] [facility] Medical History Ambulates with cane Anemia Anxiety Aphasia as late effect of stroke Atherosclerosis of coronary artery without angina pectoris Bimalleolar fracture of right ankle Bruising Cardiology follow-up encounter Carotid artery disease Cerebral arterial aneurysm Chronic atrial fibrillation Closed right ankle fracture Confusion CPAP (continuous positive airway pressure) dependence Debility Dysphagia Easy bruising Former smoker Gastric reflux History of atrial fibrillation History of Clostridium difficile infection History of echocardiogram History of stroke History of stroke HTN (hypertension) Hyperlipidemia Hypoxia Left acute arterial ischemic stroke, MCA (middle cerebral artery) (10/31/16) longterm current use of amiodarone Lower resp. 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 Normal [facility] Ankle min 3 Viewson 09-26-19 24 Ankle min 3 Views [facility] [address] [place] [address] Ankle min 3 Views MR#: [id number] Acct: [id number] Name: AFSHIN ZEE Rep #: [id number] : 1955 M 68 From: Jorge Pappas PCP: Dr. Jaci Arroyo MD Status: DEP AMB Study: Ankle min 3 Views Date of Exam: 09/26/23 Exam# [id number] Ordering Dr: Davin Kim MD [id number] INDICATION: FU EXAMINATION/TECHNIQUE: X-RAY - RIGHT XR Ankle Min 3 Views 3 VIEWS COMPARISON: Prior studies dated: 08/20/2023 FINDINGS: SOFT TISSUES: No soft tissue swelling or gas. No radiopaque foreign body. BONES/JOINTS: Redemonstration of ORIF with screw fixation of the distal tibia stabilizing a distal fibular fracture which is still evident. No evidence hardware failure. Threaded screw fixation of the medial malleolus noted. No acute fractures or subluxation. RAD/Ankle min 3 Views IMPRESSION: 1. Redemonstration of ORIF with orthopedic fixation of both the medial and lateral malleolus. Distal fibular fracture still visualized. No change in alignment. Only minimal callus formation. 2. No acute fractures or evidence of hardware failure. Electronically Signed: Jorge Ken MD at 22:34 EST , CC: Dr. Jaci Arroyo MD; Dr. Davin Kim MD Food Service Utility Worker: Signed Normal [facility] Orthopedic Visit Reporton Orthopedic Visit Report [facility] [address] [place] [address] [address] [place] [address] OFFICE VISIT Date of Service: 09/26/23 MR#: [id number] Acct: [id number] Name: AFSHIN ZEE Rep #: [id number] : 1955 Provider: Dr. Davin ba MD Age/Sex: 68/M Location: [facility] Status: Signed Intake Vital Signs 08/07/23 14:17 Height 5 ft 10 in Intake Visit Reasons: RIGHT ANKLE Accompanied by: Is patient in pain?: No Allergies azithromycin [From Zithromax Z-Sacha] Allergy (Intermediate, Verified 09/26/23 13:42) Hives lisinopril Allergy (Intermediate, Verified 09/26/23 13:42) Hives and diarrhea Sulfa (Sulfonamide Antibiotics) Allergy (Verified 09/26/23 13:42) Hives Medications famotidine 20 mg tablet 20 mg PO QHS PRN PRN Gastric Reflux 12/21/16 [History Confirmed 09/26/23] baclofen 10 mg tablet 5 mg (1/2 x 10 mg) PO TID 02/05/17 [Rx Confirmed 09/26/23] multivitamin,tx-iron-m inerals (Complete Multivitamin tablet) 1 tab PO DAILY vitamin 12/04/18 [History Confirmed 09/26/23] potassium chloride 10 mEq tablet,extended release 20 meq (2 x 10 mEq) PO TID potassium #90 tabs 04/19/20 [Rx Confirmed 09/26/23] ezetimibe 10 mg tablet 10 mg PO DAILY 04/22/21 [History Confirmed 09/26/23] escitalopram oxalate 20 mg tablet 20 mg PO DAILY antidepressant 06/11/21 [History Confirmed 09/26/23] menthol 0.44 %-zinc oxide 20.6 % topical ointment (Calmoseptine) 1 applic topical TID PRN Diaper Rash #0 grams 06/17/21 [Rx Confirmed 09/26/23] amiodarone 100 mg tablet 100 mg PO DAILY HEART 07/11/21 [History Confirmed 09/26/23] albuterol sulfate 90 mcg/actuation aerosol inhaler (Ventolin HFA) 2 inh inhalation Q4H PRN shortness of breath or wheezing #18 grams 05/29/22 [Rx Confirmed 09/26/23] IV poll #1 ea 08/07/22 [Rx Confirmed 09/26/23] buspirone 10 mg tablet 10 mg PO TID ANXIETY 08/16/22 [History Confirmed 09/26/23] trazodone 50 mg tablet 100 mg PO QHS DEPRESSION 08/16/22 [History Confirmed 09/26/23] miconazole nitrate 2 % topical cream 1 applic topical BID 14 days #15 grams 08/17/22 [Rx Confirmed 09/26/23] amlodipine 5 mg tablet 5 mg PO BID 11/11/22 [History Confirmed 09/26/23] apixaban 5 mg tablet (Eliquis) 5 mg PO BID 11/11/22 [History Confirmed 09/26/23] clopidogrel 75 mg tablet (Plavix) 75 mg PO DAILY anti platelet 11/11/22 [History Confirmed 09/26/23] fluticasone propionate 50 mcg/actuation nasal spray,suspension (Flonase Allergy Relief) 2 spray intranasal DAILY #16 grams 03/04/23 [Rx Confirmed 09/26/23] tiotropium 2.5 mcg-olodaterol 2.5 mcg/actuation mist for inhalation (Stiolto Respimat) 2 puff inhalation DAILY 05/29/23 [History Confirmed 09/26/23] albuterol sulfate 2.5 mg/3 mL (0.083 %) solution for nebulization 2.5 mg continuous nebulization Q6H PRN shortness of breath or wheezing 08/02/23 [History Confirmed 09/26/23] aspirin 81 mg capsule 81 mg PO DAILY 08/02/23 [History Confirmed 09/26/23] atorvastatin 40 mg tablet 40 mg PO DAILY 08/02/23 [History Confirmed 09/26/23] ferrous sulfate 325 mg (65 mg iron) tablet (FeroSul) 325 mg PO DAILY 08/02/23 [History Confirmed 09/26/23] lorazepam 0.5 mg tablet 0.5 mg PO Q8H PRN agitation 08/02/23 [History Confirmed 09/26/23] losartan 25 mg tablet 25 mg PO DAILY 08/02/23 [History Confirmed 09/26/23] metoprolol tartrate 25 mg tablet 12.5 mg PO BID 08/02/23 [History Confirmed 09/26/23] PFSH Medical History Ambulates with cane Anemia Anxiety Aphasia as late effect of stroke Atherosclerosis of coronary artery without angina pectoris Bimalleolar fracture of right ankle Bruising Cardiology follow-up encounter Carotid artery disease Cerebral arterial aneurysm Chronic atrial fibrillation Closed right ankle fracture Confusion CPAP (continuous positive airway pressure) dependence Debility Dysphagia Easy bruising Former smoker Gastric reflux History of atrial fibrillation History of Clostridium difficile infection History of echocardiogram History of stroke History of stroke HTN (hypertension) Hyperlipidemia Hypoxia Left acute arterial ischemic stroke, MCA (middle cerebral artery) (10/31/16) 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 Normal [facility] Absolute lymphocyte countOrd ered By: Matt Ashraf on 09-09-2023 Lymphocytes Auto (Unsp spec) [#/Vol] 2.63 10*3/uL 0.83-4.51 [facility] Automated lymphocyte count a s percentage of total leukocytesOrdered By: Matt Ashraf on 09-09-2023 Lymphocytes/100 WBC Auto (Unsp spec) 32.0 % 19-41 [facility] Basophil percentageOrdered B y: Matt Ashraf on 09-09-2023 Basophils/100 WBC (Bld) 1.0 % 0-1 [facility] Chloride [Moles/Vol] 113 mmol/L 98-107 [facility] Eosinophils/100 WBC (Bld) 8.4 % 0-5 [facility] Glucose [Mass/Vol] 86 mg/dL 74-106 [facility] Hemoglobin (Bld) [Mass/Vol] 10.8 g/dL 13.0-16.5 [facility] Monocytes/100 WBC (Bld) 10.4 % 0-10 [facility] Neutrophils (Bld) [#/Vol] 3.9 10*3/uL 2.0-7.7 [facility] Neutrophils/100 WBC (Bld) 47.5 % 47-70 [facility] Potassium [Moles/Vol] 3.6 mmol/L 3.5-5.1 [facility] Sodium [Moles/Vol] 142 mmol/L 136-145 [facility] WBC (Bld) [#/Vol] 8.2 10*3/uL 4.4-11.0 [facility] Determination of erythrocyte mean corpuscular volume (MCV)Ordered By: Matt Ashraf on 09-09-2023 MCV (RBC) [Entitic vol] 92.4 fL 80-94 [facility] Erythrocyte distribution wid th ratioOrdered By: Youngplankintonamadou Ashraf on 09-09-2023 Erythrocyte distribution width (RBC) [Ratio] 14.6 % 11.6-14.6 [facility] Erythrocyte distribution wid th standard deviationOrdered By: Matt Ashraf on 09-09-2023 Erythrocyte distribution width (RBC) [Entitic vol] 48.7 fL 35.1-43.9 [facility] Hematocrit Auto (Bld) [Volum e fraction]Ordered By: Matt Ashraf on 09-09-2023 Hematocrit (Bld) [Volume fraction] 32.7 % 40-54 [facility] Immature granulocytes/100 WB C Auto (Bld)Ordered By: Matt Ashraf on 09-09-2023 Immature granulocytes/100 WBC (Bld) 0.700 % 0.0-0.9 [facility] Comment on above: IG% - Immature Granu locytes (promyelocytes, myelocytes and metamyelocytes) > 1% indicates that a LEFT SHIFT is Present. Laboratory - Chemistry and C hemistry - challengeOrdered By: Matt Ashraf on 09-09-2023 CO2 [Moles/Vol] 26.0 mmol/L 21.0-32.0 [facility] Urea nitrogen/Creatinine [Mass ratio] 17.6 mg/mg 10-20 [facility] Laboratory - Hematology and Cell countsOrdered By: Matt Ashraf on 09-09-2023 MCH (RBC) [Entitic mass] 30.5 pg 27.0-32.0 [facility] MCHC (RBC) [Mass/Vol] 33.0 g/dL 32-36 [facility] Nucleated RBC/100 WBC (Bld) [Ratio] 0 % 0-5 [facility] Platelets (Bld) [#/Vol] 276 10*3/uL 150-450 [facility] No Panel InformationOrdered By: Matt Ashraf on 09-09-2023 Estimated GFR (MDRD) Amer 78 mL/min >60 [facility] Comment on above: GFR Calc Estimated GFR (MDRD) Non-Af Amer 65 mL/min >60 [facility] Comment on above: Non- GFR Calc Platelet mean volume Adriano-Ec ker (Bld) [Entitic vol]Ordered By: Matt Ashraf on 09-09-2023 Platelet mean volume (Bld) [Entitic vol] 10.5 fL 6.2-12.0 [facility] RBC Auto (Bld) [#/Vol]Ordere d By: Matt Ashraf on 09-09-2023 RBC (Bld) [#/Vol] 3.54 10*6/uL 4.6-6.2 [facility] Serum or plasma calcium jerome urement (mass/volume)Ordered By: Matt Ashraf on 09-09-2023 Calcium [Mass/Vol] 8.6 mg/dL 8.5-10.1 [facility] Serum or plasma creatinine m easurement (mass/volume)Ordered By: Matt Ashraf on 09-09-2023 Creatinine [Mass/Vol] 1.19 mg/dL 0.70-1.30 [facility] Comment on above: The validity of the calculated GFR & GFRAA in patients over 70 years has not been determined. Clinical correlation is essential. Serum or plasma urea nitroge n measurement (mass/volume)Ordered By: mathieu Ashraf on 09-09-2023 Urea nitrogen [Mass/Vol] 21 mg/dL 7-18 [facility] Thin prep Papanicolaou smear with manual screeningOrdered By: [facility] on 09-09-2023 Thin prep Papanicolaou smear with manual screening 3 5-15 [facility] Absolute lymphocyte countOrd ered By: [facility] on 09-02-2023 Lymphocytes Auto (Unsp spec) [#/Vol] 2.03 10*3/uL 0.83-4.51 [facility] Automated lymphocyte count a s percentage of total leukocytesOrdered By: mathieu Ashraf on 09-02-2023 Lymphocytes/100 WBC Auto (Unsp spec) 25.7 % 19-41 [facility] Basophil percentageOrdered B y: Matt Ashraf on 09-02-2023 Basophils/100 WBC (Bld) 0.9 % 0-1 [facility] Chloride [Moles/Vol] 115 mmol/L 98-107 [facility] Eosinophils/100 WBC (Bld) 6.7 % 0-5 [facility] Glucose [Mass/Vol] 121 mg/dL 74-106 [facility] Comment on above: Fasting Glucose resu lt from 100 to 125 mg/dL suggests IMPAIRED HOMEOSTASIS per A.D.A. criteria. Hemoglobin (Bld) [Mass/Vol] 11.0 g/dL 13.0-16.5 [facility] Monocytes/100 WBC (Bld) 12.4 % 0-10 [facility] Neutrophils (Bld) [#/Vol] 4.2 10*3/uL 2.0-7.7 [facility] Neutrophils/100 WBC (Bld) 53.4 % 47-70 [facility] Potassium [Moles/Vol] 3.9 mmol/L 3.5-5.1 [facility] Sodium [Moles/Vol] 142 mmol/L 136-145 [facility] WBC (Bld) [#/Vol] 7.9 10*3/uL 4.4-11.0 [facility] Determination of erythrocyte mean corpuscular volume (MCV)Ordered By: Matt Ashraf on 09-02-2023 MCV (RBC) [Entitic vol] 92.9 fL 80-94 [facility] Erythrocyte distribution wid th ratioOrdered By: [facility] on 09-02-2023 Erythrocyte distribution width (RBC) [Ratio] 13.8 % 11.6-14.6 [facility] Erythrocyte distribution wid th standard deviationOrdered By: Youngplankintonamadou Senvijay on 09-02-2023 Erythrocyte distribution width (RBC) [Entitic vol] 46.3 fL 35.1-43.9 [facility] Hematocrit Auto (Bld) [Volum e fraction]Ordered By: Matt Ashraf on 09-02-2023 Hematocrit (Bld) [Volume fraction] 34.1 % 40-54 [facility] Immature granulocytes/100 WB C Auto (Bld)Ordered By: [facility] Senvijay on 09-02-2023 Immature granulocytes/100 WBC (Bld) 0.900 % 0.0-0.9 [facility] Comment on above: IG% - Immature Granu locytes (promyelocytes, myelocytes and metamyelocytes) > 1% indicates that a LEFT SHIFT is Present. Laboratory - Chemistry and C hemistry - challengeOrdered By: Matt Ashraf on 09-02-2023 CO2 [Moles/Vol] 23.0 mmol/L 21.0-32.0 [facility] Urea nitrogen/Creatinine [Mass ratio] 23.4 mg/mg 10-20 [facility] Laboratory - Hematology and Cell countsOrdered By: Matt Ashraf on 09-02-2023 MCH (RBC) [Entitic mass] 30.0 pg 27.0-32.0 [facility] MCHC (RBC) [Mass/Vol] 32.3 g/dL 32-36 [facility] Nucleated RBC/100 WBC (Bld) [Ratio] 0 % 0-5 [facility] Platelets (Bld) [#/Vol] 275 10*3/uL 150-450 [facility] No Panel InformationOrdered By: Matt Ashraf on 09-02-2023 Estimated GFR (MDRD) Amer 85 mL/min >60 [facility] Comment on above: GFR Calc Estimated GFR (MDRD) Non-Af Amer 70 mL/min >60 [facility] Comment on above: Non- GFR Calc Platelet mean volume Adriano-Ec ker (Bld) [Entitic vol]Ordered By: Matt Ashraf on 09-02-2023 Platelet mean volume (Bld) [Entitic vol] 11.1 fL 6.2-12.0 [facility] RBC Auto (Bld) [#/Vol]Ordere d By: Matt Ashraf on 09-02-2023 RBC (Bld) [#/Vol] 3.67 10*6/uL 4.6-6.2 [facility] Serum or plasma calcium jerome urement (mass/volume)Ordered By: Matt Ashraf on 09-02-2023 Calcium [Mass/Vol] 8.7 mg/dL 8.5-10.1 [facility] Serum or plasma creatinine m easurement (mass/volume)Ordered By: Matt Ashraf on 09-02-2023 Creatinine [Mass/Vol] 1.11 mg/dL 0.70-1.30 [facility] Comment on above: The validity of the calculated GFR & GFRAA in patients over 70 years has not been determined. Clinical correlation is essential. Serum or plasma urea nitroge n measurement (mass/volume)Ordered By: Matt Ashraf on 09-02-2023 Urea nitrogen [Mass/Vol] 26 mg/dL 7-18 [facility] Thin prep Papanicolaou smear with manual screeningOrdered By: Matt Ashraf on 09-02-2023 Thin prep Papanicolaou smear with manual screening 4 5-15 [facility] Absolute lymphocyte countOrd ered By: Matt Ashraf on 08-26-2023 Lymphocytes Auto (Unsp spec) [#/Vol] 2.41 10*3/uL 0.83-4.51 [facility] Automated lymphocyte count a s percentage of total leukocytesOrdered By: Matt Ashraf on 08-26-2023 Lymphocytes/100 WBC Auto (Unsp spec) 27.9 % 19-41 [facility] Basophil percentageOrdered B y: Matt Ashraf on 08-26-2023 Basophils/100 WBC (Bld) 0.8 % 0-1 [facility] Chloride [Moles/Vol] 112 mmol/L 98-107 [facility] Eosinophils/100 WBC (Bld) 6.1 % 0-5 [facility] Glucose [Mass/Vol] 95 mg/dL 74-106 [facility] Hemoglobin (Bld) [Mass/Vol] 12.1 g/dL 13.0-16.5 [facility] Monocytes/100 WBC (Bld) 11.7 % 0-10 [facility] Neutrophils (Bld) [#/Vol] 4.6 10*3/uL 2.0-7.7 [facility] Neutrophils/100 WBC (Bld) 53.0 % 47-70 [facility] Potassium [Moles/Vol] 4.2 mmol/L 3.5-5.1 [facility] Comment on above: Slight Hemolysis, Re sult may be falsely increased. Sodium [Moles/Vol] 140 mmol/L 136-145 [facility] WBC (Bld) [#/Vol] 8.6 10*3/uL 4.4-11.0 [facility] Determination of erythrocyte mean corpuscular volume (MCV)Ordered By: Matt Ashraf on 08-26-2023 MCV (RBC) [Entitic vol] 91.2 fL 80-94 [facility] Erythrocyte distribution wid th ratioOrdered By: mtplankintonamadou Ashraf on 08-26-2023 Erythrocyte distribution width (RBC) [Ratio] 13.3 % 11.6-14.6 [facility] Erythrocyte distribution wid th standard deviationOrdered By: Matt Ashraf on 08-26-2023 Erythrocyte distribution width (RBC) [Entitic vol] 44.4 fL 35.1-43.9 [facility] Hematocrit Auto (Bld) [Volum e fraction]Ordered By: Matt Ashraf on 08-26-2023 Hematocrit (Bld) [Volume fraction] 36.2 % 40-54 [facility] Immature granulocytes/100 WB C Auto (Bld)Ordered By: Matt Ashraf on 08-26-2023 Immature granulocytes/100 WBC (Bld) 0.500 % 0.0-0.9 [facility] Comment on above: IG% - Immature Granu locytes (promyelocytes, myelocytes and metamyelocytes) > 1% indicates that a LEFT SHIFT is Present. Laboratory - Chemistry and C hemistry - challengeOrdered By: Youngplankintonamadou Ashraf on 08-26-2023 CO2 [Moles/Vol] 23.0 mmol/L 21.0-32.0 [facility] Urea nitrogen/Creatinine [Mass ratio] 14.0 mg/mg 10-20 [facility] Laboratory - Hematology and Cell countsOrdered By: Matt Ashraf on 08-26-2023 MCH (RBC) [Entitic mass] 30.5 pg 27.0-32.0 [facility] MCHC (RBC) [Mass/Vol] 33.4 g/dL 32-36 [facility] Nucleated RBC/100 WBC (Bld) [Ratio] 0 % 0-5 [facility] Platelets (Bld) [#/Vol] 280 10*3/uL 150-450 [facility] No Panel InformationOrdered By: Matt Ashraf on 08-26-2023 Estimated GFR (MDRD) Amer 77 mL/min >60 [facility] Comment on above: GFR Calc Estimated GFR (MDRD) Non-Af Amer 63 mL/min >60 [facility] Comment on above: Non- GFR Calc Platelet mean volume Adriano-Ec ker (Bld) [Entitic vol]Ordered By: Matt Ashraf on 08-26-2023 Platelet mean volume (Bld) [Entitic vol] 11.0 fL 6.2-12.0 [facility] RBC Auto (Bld) [#/Vol]Ordere d By: Matt Ashraf on 08-26-2023 RBC (Bld) [#/Vol] 3.97 10*6/uL 4.6-6.2 [facility] Serum or plasma calcium jerome urement (mass/volume)Ordered By: Matt Ashraf on 08-26-2023 Calcium [Mass/Vol] 8.8 mg/dL 8.5-10.1 [facility] Serum or plasma creatinine m easurement (mass/volume)Ordered By: Matt Ashraf on 08-26-2023 Creatinine [Mass/Vol] 1.21 mg/dL 0.70-1.30 [facility] Comment on above: The validity of the calculated GFR & GFRAA in patients over 70 years has not been determined. Clinical correlation is essential. Serum or plasma urea nitroge n measurement (mass/volume)Ordered By: Matt Ashraf on 08-26-2023 Urea nitrogen [Mass/Vol] 17 mg/dL 7-18 [facility] Thin prep Papanicolaou smear with manual screeningOrdered By: [facility] on 08-26-2023 Thin prep Papanicolaou smear with manual screening 5 5-15 [facility] Absolute lymphocyte countOrd ered By: mtplankintonamadou Ashraf on 08-19-2023 Lymphocytes Auto (Unsp spec) [#/Vol] 2.79 10*3/uL 0.83-4.51 [facility] Basophil percentageOrdered B y: Youngbaileyamadou Ashraf on 08-19-2023 Basophils/100 WBC (Bld) 0.7 % 0-1 [facility] Chloride [Moles/Vol] 112 mmol/L 98-107 [facility] Eosinophils/100 WBC (Bld) 5.0 % 0-5 [facility] Glucose [Mass/Vol] 84 mg/dL 74-106 [facility] Neutrophils (Bld) [#/Vol] 8.3 10*3/uL 2.0-7.7 [facility] Neutrophils/100 WBC (Bld) 63.9 % 47-70 [facility] Potassium [Moles/Vol] 3.8 mmol/L 3.5-5.1 [facility] Sodium [Moles/Vol] 143 mmol/L 136-145 [facility] WBC (Bld) [#/Vol] 13.0 10*3/uL 4.4-11.0 [facility] Blood erythrocytes count (nu mber/volume)Ordered By: Matt Ashraf on 08-19-2023 RBC (Bld) [#/Vol] 4.51 10*6/uL 4.6-6.2 [facility] Blood hemoglobin measurement (mass/volume)Ordered By: Matt Ashraf on 08-19-2023 Hemoglobin (Bld) [Mass/Vol] 13.2 g/dL 13.0-16.5 [facility] Blood lymphocytes/100 leukoc ytesOrdered By: Matt Ashraf on 08-19-2023 Lymphocytes/100 WBC (Bld) 21.4 % 19-41 [facility] Blood monocytes/100 leukocyt esOrdered By: Matt Ashraf on 08-19-2023 Monocytes/100 WBC (Bld) 8.5 % 0-10 [facility] Blood platelet mean volumeOr dered By: Matt Ashraf on 08-19-2023 Platelet mean volume (Bld) [Entitic vol] 10.8 fL 6.2-12.0 [facility] Determination of erythrocyte mean corpuscular volume (MCV)Ordered By: Matt Ashraf on 08-19-2023 MCV (RBC) [Entitic vol] 90.2 fL 80-94 [facility] Hematocrit Auto (Bld) [Volum e fraction]Ordered By: Matt Ashraf on 08-19-2023 Hematocrit (Bld) [Volume fraction] 40.7 % 40-54 [facility] Laboratory - Chemistry and C hemistry - challengeOrdered By: Matt Ashraf on 08-19-2023 CO2 [Moles/Vol] 24.0 mmol/L 21.0-32.0 [facility] Urea nitrogen/Creatinine [Mass ratio] 14.9 mg/mg 10-20 [facility] Laboratory - Hematology and Cell countsOrdered By: Matt Ashraf on 08-19-2023 Erythrocyte distribution width (RBC) [Entitic vol] 43.0 fL 35.1-43.9 [facility] Erythrocyte distribution width (RBC) [Ratio] 13.2 % 11.6-14.6 [facility] Immature granulocytes/100 WBC (Bld) 0.500 % 0.0-0.9 [facility] Comment on above: IG% - Immature Granu locytes (promyelocytes, myelocytes and metamyelocytes) > 1% indicates that a LEFT SHIFT is Present. MCH (RBC) [Entitic mass] 29.3 pg 27.0-32.0 [facility] Nucleated RBC/100 WBC (Bld) [Ratio] 0 % 0-5 [facility] MCHC Auto (RBC) [Mass/Vol]Or dered By: Matt Ashraf on 08-19-2023 MCHC (RBC) [Mass/Vol] 32.4 g/dL 32-36 [facility] No Panel InformationOrdered By: Matt sAhraf on 08-19-2023 Estimated GFR (MDRD) Amer 82 mL/min >60 [facility] Comment on above: GFR Calc Estimated GFR (MDRD) Non-Af Amer 68 mL/min >60 [facility] Comment on above: Non- GFR Calc Platelets bldOrdered By: Frantz Ashraf on 08-19-2023 Platelets (Bld) [#/Vol] 343 10*3/uL 150-450 [facility] Serum or plasma calcium jerome urement (mass/volume)Ordered By: Matt Ashraf on 08-19-2023 Calcium [Mass/Vol] 8.7 mg/dL 8.5-10.1 [facility] Serum or plasma creatinine m easurement (mass/volume)Ordered By: Matt Ashraf on 08-19-2023 Creatinine [Mass/Vol] 1.14 mg/dL 0.70-1.30 [facility] Comment on above: The validity of the calculated GFR & GFRAA in patients over 70 years has not been determined. Clinical correlation is essential. Serum or plasma urea nitroge n measurement (mass/volume)Ordered By: Matt Ashraf on 08-19-2023 Urea nitrogen [Mass/Vol] 17 mg/dL 7-18 [facility] Thin prep Papanicolaou smear with manual screeningOrdered By: Matt Ashraf on 08-19-2023 Thin prep Papanicolaou smear with manual screening 7 5-15 [facility] Absolute lymphocyte countOrd ered By: Matt Ashraf on 08-12-2023 Lymphocytes Auto (Unsp spec) [#/Vol] 2.84 10*3/uL 0.83-4.51 [facility] Basophil percentageOrdered B y: Matt Ashraf on 08-12-2023 Basophils/100 WBC (Bld) 0.6 % 0-1 [facility] Bilirubin [Mass/Vol] 1.00 mg/dL 0.20-1.00 [facility] Comment on above: For patients on eltr ombopag therapy, use of Dimension [place] TBIL is not recommended. Chloride [Moles/Vol] 111 mmol/L 98-107 [facility] Cholesterol [Mass/Vol] 153 mg/dL <200 [facility] Comment on above: <200 mg/dL Desirable 200-240 mg/dL Borderline >240 mg/dL High Risk Eosinophils/100 WBC (Bld) 3.9 % 0-5 [facility] Glucose [Mass/Vol] 99 mg/dL 74-106 [facility] Neutrophils (Bld) [#/Vol] 7.5 10*3/uL 2.0-7.7 [facility] Neutrophils/100 WBC (Bld) 59.4 % 47-70 [facility] Potassium [Moles/Vol] 4.1 mmol/L 3.5-5.1 [facility] Protein [Mass/Vol] 7.1 g/dL 6.4-8.2 [facility] Sodium [Moles/Vol] 141 mmol/L 136-145 [facility] Triglyceride [Mass/Vol] 124 mg/dL <199 [facility] Comment on above: The drugs N-Acetylcy steine and Metamizole may falsely depress this assay.Serum Triglycerides Reference Interval Normal <150 mg/dL Borderline high 150 - 199 mg/dL High 200 - 499 mg/dL Very High > or = 500 mg/dL WBC (Bld) [#/Vol] 12.7 10*3/uL 4.4-11.0 [facility] Blood erythrocytes count (nu mber/volume)Ordered By: Matt Ashraf on 08-12-2023 RBC (Bld) [#/Vol] 4.88 10*6/uL 4.6-6.2 [facility] Blood hemoglobin measurement (mass/volume)Ordered By: Vivimtbaileyamadou Ashraf on 08-12-2023 Hemoglobin (Bld) [Mass/Vol] 14.1 g/dL 13.0-16.5 [facility] Blood lymphocytes/100 leukoc ytesOrdered By: mathieu Ashraf on 08-12-2023 Lymphocytes/100 WBC (Bld) 22.3 % 19-41 [facility] Blood monocytes/100 leukocyt esOrdered By: mtplankintonamadou Ashraf on 08-12-2023 Monocytes/100 WBC (Bld) 12.5 % 0-10 [facility] Blood platelet mean volumeOr dered By: mathieu Ashraf on 08-12-2023 Platelet mean volume (Bld) [Entitic vol] 10.3 fL 6.2-12.0 [facility] Determination of erythrocyte mean corpuscular volume (MCV)Ordered By: Matt Ashraf on 08-12-2023 MCV (RBC) [Entitic vol] 90.0 fL 80-94 [facility] Hematocrit Auto (Bld) [Volum e fraction]Ordered By: mtplankintonamadou Ashraf on 08-12-2023 Hematocrit (Bld) [Volume fraction] 43.9 % 40-54 [facility] Laboratory - Chemistry and C hemistry - challengeOrdered By: mathieu Ashraf on 08-12-2023 ALP [Catalytic activity/Vol] 109 U/L 45-117 [facility] ALT [Catalytic activity/Vol] 23 U/L 16-61 [facility] CO2 [Moles/Vol] 25.0 mmol/L 21.0-32.0 [facility] Globulin (S) [Mass/Vol] 3.7 g/dL 2.2-4.2 [facility] Urea nitrogen/Creatinine [Mass ratio] 18.3 mg/mg 10-20 [facility] Laboratory - Hematology and Cell countsOrdered By: mtplankintonamadou Ashraf on 08-12-2023 Erythrocyte distribution width (RBC) [Entitic vol] 45.4 fL 35.1-43.9 [facility] Erythrocyte distribution width (RBC) [Ratio] 14.0 % 11.6-14.6 [facility] Immature granulocytes/100 WBC (Bld) 1.300 % 0.0-0.9 [facility] Comment on above: IG% - Immature Granu locytes (promyelocytes, myelocytes and metamyelocytes) > 1% indicates that a LEFT SHIFT is Present. MCH (RBC) [Entitic mass] 28.9 pg 27.0-32.0 [facility] Nucleated RBC/100 WBC (Bld) [Ratio] 0 % 0-5 [facility] MCHC Auto (RBC) [Mass/Vol]Or dered By: Matt Ashraf on 08-12-2023 MCHC (RBC) [Mass/Vol] 32.1 g/dL 32-36 [facility] No Panel InformationOrdered By: Matt Ashraf on 08-12-2023 Estimated GFR (MDRD) Amer 70 mL/min >60 [facility] Comment on above: GFR Calc Estimated GFR (MDRD) Non-Af Amer 58 mL/min >60 [facility] Comment on above: Non- GFR Calc Platelets bldOrdered By: Frantz Ashraf on 08-12-2023 Platelets (Bld) [#/Vol] 538 10*3/uL 150-450 [facility] Review by pathologistOrdered By: Matt Ashraf on 08-12-2023 Pathologist review Gerry (Unsp spec) [Interp] Reviewed [facility] Comment on above: Previous reported re sult: Bianca baez Edited by: RGOOD on 08/12/23:1216Leukocytosis and Thrombocytosis.Clinical correlation necessary.Mick James M.D. 08/12/23 AMENDED REPORT 08/12/23 1216 PATH REV previously reported as: Bianca baez Serum or plasma albumin jerome urement (mass/volume)Ordered By: Matt Ashraf on 08-12-2023 Albumin [Mass/Vol] 3.4 g/dL 3.2-5.0 [facility] Serum or plasma albumin/glob ulin mass ratioOrdered By: Matt Ashraf on 08-12-2023 Albumin/Globulin [Mass ratio] 0.9 {ratio} 0.9-2.4 [facility] Serum or plasma calcium jerome urement (mass/volume)Ordered By: Matt Ashraf on 08-12-2023 Calcium [Mass/Vol] 9.6 mg/dL 8.5-10.1 [facility] Serum or plasma cholesterol in HDL measurement (mass/volume)Ordered By: Matt Ashraf on 08-12-2023 Cholesterol in HDL [Mass/Vol] 41 mg/dL >40 [facility] Comment on above: The drugs N-Acetylcy steine and Metamizole may falsely depress this assay. Reference Range HDL <40 mg/dL Low HDL Cholesterol HDL >or= 60 mg/dL High HDL Cholesterol Serum or plasma cholesterol in VLDL measurement (mass/volume)Ordered By: Matt Ahsraf on 08-12-2023 Cholesterol in VLDL [Mass/Vol] 25 mg/dL 5-40 [facility] Serum or plasma creatinine m easurement (mass/volume)Ordered By: Matt Ashraf on 08-12-2023 Creatinine [Mass/Vol] 1.31 mg/dL 0.70-1.30 [facility] Comment on above: The validity of the calculated GFR & GFRAA in patients over 70 years has not been determined. Clinical correlation is essential. Serum or plasma low density lipoprotein (LDL) cholesterol measurement (mass/volume)Ordered By: Matt Ashraf on 08-12-2023 Cholesterol in LDL [Mass/Vol] 87 mg/dL 0-130 [facility] Serum or plasma urea nitroge n measurement (mass/volume)Ordered By: Matt Ashraf on 08-12-2023 Urea nitrogen [Mass/Vol] 24 mg/dL 7-18 [facility] Thin prep Papanicolaou smear with manual screeningOrdered By: Matt Ashraf on 08-12-2023 Thin prep Papanicolaou smear with manual screening 17 U/L 15-37 [facility] Thin prep Papanicolaou smear with manual screening 5 5-15 [facility] COVID-19 virus antigen assay Ordered By: Davin Kim on 08-09-2023 SARS-CoV-2 (COVID-19) Ag IA.rapid Ql (Resp) [facility] Basophil percentageOrdered B y: Dov Marin on 08-08-2023 Basophil percentage 0 SEEN /hpf 0-5 [facility] Bilirubin Test strip Ql (U)O rdered By: Dov Marin on 08-08-2023 Bilirubin Ql (U) Negative Negative [facility] Culture, urineOrdered By: Yane Marin on 08-08-2023 Bacteria identified Cx Nom (U) Culture exhibits no growth. [facility] Ketones Test strip Ql (U)Ord ered By: Dov Marin on 08-08-2023 Ketones Ql (U) Negative Negative [facility] Mucus LM Ql (Urine sed)Order ed By: Dov Marin on 08-08-2023 Mucus Ql (Urine sed) 0 SEEN /hpf [facility] Nitrite Test strip Ql (U)Ord ered By: Dov Marin on 08-08-2023 Nitrite Ql (U) Negative Negative [facility] Protein Test strip Ql (U)Ord ered By: Dov Marin on 08-08-2023 Protein Ql (U) 15 mg/dl Negative [facility] Squamous epithelial cells de tection in urine sediment by light microscopyOrdered By: Dov Marin on 08-08-2023 Epithelial cells.squamous LM Ql (Urine sed) 0 SEEN /hpf 0-5 [facility] Urine blood detectionOrdered By: Dov Marin on 08-08-2023 RBC Ql (U) Negative Negative [facility] RBC Ql (U) 0 SEEN /hpf 0-5 [facility] Urine clarityOrdered By: Jessi Marin on 08-08-2023 Clarity (U) Clear Clear [facility] Urine color determinationOrd ered By: Dov Marin on 08-08-2023 Color (U) Yellow Yellow [facility] Urine glucose detectionOrder ed By: Dov Marin on 08-08-2023 Glucose Ql (U) Normal mg/dl Normal [facility] Urine leukocyte esterase det ection by dipstickOrdered By: Dov Marin on 08-08-2023 Leukocyte esterase Test strip Ql (U) Negative Negative [facility] Urine pHOrdered By: Dov verma on 08-08-2023 pH (U) 5.0 [pH] 5.0 - 8.0 [facility] Urine sediment bacteria coun t by microscopy (number/high power field)Ordered By: Dov Marin on 08-08-2023 Bacteria LM.HPF (Urine sed) [#/Area] 0 /[HPF] None Seen [facility] Urine specific gravity measu rementOrdered By: Dov Marin on 08-08-2023 Specific gravity (U) [Rel density] 1.025 1.002-1.030 [facility] Urobilinogen Auto test strip Ql (U)Ordered By: Dov Marin on 08-08-2023 Urobilinogen Ql (U) Normal mg/dl Normal [facility] Basophil percentageOrdered B y: Dov Mcghee on 08-07-2023 Chloride [Moles/Vol] 108 mmol/L 98-107 [facility] Glucose [Mass/Vol] 86 mg/dL 74-106 [facility] Potassium [Moles/Vol] 4.5 mmol/L 3.5-5.1 [facility] Sodium [Moles/Vol] 141 mmol/L 136-145 [facility] WBC (Bld) [#/Vol] 12.5 10*3/uL 4.4-11.0 [facility] Blood erythrocytes count (nu mber/volume)Ordered By: Dov Mcghee on 08-07-2023 RBC (Bld) [#/Vol] 4.17 10*6/uL 4.6-6.2 [facility] Blood hemoglobin measurement (mass/volume)Ordered By: Dov Mcghee on 08-07-2023 Hemoglobin (Bld) [Mass/Vol] 11.7 g/dL 13.0-16.5 [facility] Blood platelet mean volumeOr dered By: Dov Mcghee on 08-07-2023 Platelet mean volume (Bld) [Entitic vol] 10.0 fL 6.2-12.0 [facility] Determination of erythrocyte mean corpuscular volume (MCV)Ordered By: Dov Mcghee on 08-07-2023 MCV (RBC) [Entitic vol] 89.0 fL 80-94 [facility] Hematocrit Auto (Bld) [Volum e fraction]Ordered By: Dov Mcghee on 08-07-2023 Hematocrit (Bld) [Volume fraction] 37.1 % 40-54 [facility] Laboratory - Chemistry and C hemistry - challengeOrdered By: Dov Mcghee on 08-07-2023 CO2 [Moles/Vol] 25.0 mmol/L 21.0-32.0 [facility] Urea nitrogen/Creatinine [Mass ratio] 11.9 mg/mg 10-20 [facility] Laboratory - Hematology and Cell countsOrdered By: Dov Mcghee on 08-07-2023 Erythrocyte distribution width (RBC) [Entitic vol] 46.1 fL 35.1-43.9 [facility] Erythrocyte distribution width (RBC) [Ratio] 14.3 % 11.6-14.6 [facility] MCH (RBC) [Entitic mass] 28.1 pg 27.0-32.0 [facility] MCHC Auto (RBC) [Mass/Vol]Or dered By: Dov Mcghee on 08-07-2023 MCHC (RBC) [Mass/Vol] 31.5 g/dL 32-36 [facility] No Panel InformationOrdered By: Dov Mcghee on 08-07-2023 Estimated Creatinine Clearance Calc 54.48 ml/min [facility] Estimated GFR (MDRD) Amer 68 mL/min >60 [facility] Comment on above: GFR Calc Estimated GFR (MDRD) Non-Af Amer 56 mL/min >60 [facility] Comment on above: Non- GFR Calc Platelets bldOrdered By: Jessi Mcghee on 08-07-2023 Platelets (Bld) [#/Vol] 405 10*3/uL 150-450 [facility] Serum or plasma calcium jerome urement (mass/volume)Ordered By: Dov Mcghee on 08-07-2023 Calcium [Mass/Vol] 8.4 mg/dL 8.5-10.1 [facility] Serum or plasma creatinine m easurement (mass/volume)Ordered By: Dov Mcghee on 08-07-2023 Creatinine [Mass/Vol] 1.34 mg/dL 0.70-1.30 [facility] Comment on above: The validity of the calculated GFR & GFRAA in patients over 70 years has not been determined. Clinical correlation is essential. Serum or plasma urea nitroge n measurement (mass/volume)Ordered By: Dov Mcghee on 08-07-2023 Urea nitrogen [Mass/Vol] 16 mg/dL 7-18 [facility] Thin prep Papanicolaou smear with manual screeningOrdered By: Dov Mcghee on 08-07-2023 Thin prep Papanicolaou smear with manual screening 8 5-[address] [facility] [address] HEAD OR BRAIN W/O CONTRAS Ton 07-26-2023 CT HEAD OR BRAIN W/O CONTRAST ORIGINAL HISTORY: Fall COMPARISON: 22 March 2023 TECHNIQUE: Routine non-contrast head CT with sagittal and coronal reconstructions This exam was performed according to our departmental dose optimization program, and includes the following measures where applicable: automated exposure control, adjustment of the mAs and/or kVp according to patient size and/or exam, and an iterative reconstruction algorithm. FINDINGS: There is a large area of encephalomalacia involving portions of the left frontal, parietal and temporal lobes. There is ex vacuo dilatation of left-sided sulci in the left lateral ventricle. On the right, the ventricles and sulci are mildly enlarged. There are no abnormal intra or extra-axial fluid collections. The calvaria and the bones of the base of the skull are intact. IMPRESSION: No significant interval change. Interpreted by: Zenaida Shi MD Preliminary Report By: Zenaida Shi MD Electronically signed By Zenaida Shi MD Dictated Date: 07/26/2023 12:30:49 PM Prelim Date: 07/26/2023 12:32:07 PM Sign Date: 07/26/2023 12:32:07 PM Ordering Provider: MATTHEW AVALOS [facility] ([place]) CT SPINE CERVICAL W/O CONTRA STon 07-26-2023 CT SPINE CERVICAL W/O CONTRAST ORIGINAL HISTORY: Fall COMPARISON: No TECHNIQUE: Cervical spine CT with sagittal and coronal reconstructions. This exam was performed according to our departmental dose optimization program, and includes the following measures where applicable: automated exposure control, adjustment of the mAs and/or kVp according to patient size and/or exam, and an iterative reconstruction algorithm. FINDINGS: There are no acute fractures or dislocations. There is straightening of the normal cervical lordosis. The individual vertebral bodies are intact. Prevertebral soft tissues are unremarkable in appearance. There is consolidation and or scarring in the right lung apex. There are underlying emphysematous changes. IMPRESSION: No acute fracture. Interpreted by: Zenaida Shi MD Preliminary Report By: Zenaida Shi MD Electronically signed By Zenaida Shi MD Dictated Date: 07/26/2023 12:32:15 PM Prelim Date: 07/26/2023 12:33:14 PM Sign Date: 07/26/2023 12:33:14 PM Ordering Provider: MATTHEW AVALOS [facility] ([place]) XR ANKLE AND FOOT 6 VIEWS RI [facility] 07-26-2023 XR ANKLE AND FOOT 6 VIEWS RIGHT ORIGINAL EXAMINATION: 6 XRAY VIEWS OF THE RIGHT ankle and right FOOT07/26/2023 12:31 pm COMPARISON: None HISTORY: ORDERING SYSTEM PROVIDED HISTORY: Reason for Exam: pain, fall FINDINGS: Bones are moderately osteopenic. There is cortical disruption in the head of the 4th proximal phalanx suggesting a nondisplaced fracture with questionable articular disruption. No other obvious acute fracture or dislocation in the foot. There is a nondisplaced fracture of the medial malleolus. Also an oblique fracture of the distal fibula extending to the syndesmosis with mild distraction. No dislocation at the ankle. IMPRESSION: Fractures of the distal fibula and medial malleolus. Also suspect fracture of the 4th proximal phalanx, correlate with point tenderness. Interpreted by: Zo Stevens MD Preliminary Report By: Zo Stevens MD Electronically signed By Zo Stevens MD Dictated Date: 07/26/2023 12:40:10 PM Prelim Date: 07/26/2023 12:43:33 PM Sign Date: 07/26/2023 12:43:33 PM Ordering Provider: MATTHEW AVALOS [facility] ([place]) XR CHEST 1 VIEWon 07-26-2023 XR CHEST 1 VIEW ORIGINAL EXAMINATION: ONE XRAY VIEW OF THE CHEST07/26/2023 12:26 pm XR Chest, portable upright COMPARISON: 03/25/2023 HISTORY: ORDERING SYSTEM PROVIDED HISTORY: Reason for Exam: pain; trauma patient, FINDINGS: The lungs show no suspicious nodule, infiltrate, consolidation or mass. Heart size and mediastinal contours are stable accounting for differences in projection and patient position. No pneumothorax, pleural fluid, or vascular congestion is seen. The bones show no acute process. Previous sternotomy and bypass surgery. IMPRESSION: No acute cardio pulmonary process. If there is strong concern for rib fracture, consider dedicated rib series. Interpreted by: Zo Stevens MD Preliminary Report By: Zo Stevens MD Electronically signed By Zo Stevens MD Dictated Date: 07/26/2023 12:37:05 PM Prelim Date: 07/26/2023 12:37:50 PM Sign Date: 07/26/2023 12:37:50 PM Ordering Provider: MATTHEW Robles [facility]) XR PELVIS 1 OR 2 VIEWSon XR PELVIS 1 OR 2 VIEWS ORIGINAL EXAMINATION: ONE XRAY VIEW OF THE [id number]/26/2023 12:28 pm COMPARISON: 03/22/2023 HISTORY: ORDERING SYSTEM PROVIDED HISTORY: Reason for Exam: pain; trauma patient FINDINGS: No acute pelvic fracture is seen. Moderate to severe bilateral hip osteoarthritis. Symmetric SI joints. IMPRESSION: No pelvic fracture is seen. If there is concern for hip fracture, dedicated hip radiographs should be obtained. Interpreted by: Zo Stevens MD Preliminary Report By: Zo Stevens MD Electronically signed By Zo Stevens MD Dictated Date: 07/26/2023 12:39:10 PM Prelim Date: 07/26/2023 12:39:59 PM Sign Date: 07/26/2023 12:39:59 PM Ordering Provider: MATTHEW Robles [facility]) SIGMOIDOSCOPYon 06-19-[address] [facility] [address] ABD/PEL W IVCONon 023 [facility] MRI RECTUM WO/W IVCONon 11-0 [facility] Basic metabolic 2000 panelon 05-22-2023 Anion gap [Moles/Vol] 13 mmol/L 9 - 18 mmol/L [facility] Calcium [Mass/Vol] 9.3 mg/dL 8.5 - 10. 2 mg/dL [facility] Chloride [Moles/Vol] 105 mmol/L 97 - 10 5 mmol/L [facility] CO2 [Moles/Vol] 24 mmol/L 22 - 30 mmol/L [facility] Creatinine [Mass/Vol] 1.30 mg/dL High 0.73 - 1.22 mg/dL [facility] Estimated Glomerular Filtration Rate 60 mL/min/1.73m >=60 mL/min/1.73 m [facility] Glucose [Mass/Vol] 93 mg/dL 74 - 99 mg/dL [facility] Potassium [Moles/Vol] 4.4 mmol/L 3.7 - 5.1 mmol/L [facility] Sodium [Moles/Vol] 142 mmol/L 136 - 144 mmol/L [facility] Urea nitrogen [Mass/Vol] 17 mg/dL 9 - 24 mg/dL [facility] CBC W Auto Differential pane l (Bld)on 05-09-2023 Basophils (Bld) [#/Vol] 0.07 10*3/uL <0.11 k/uL [facility] Basophils/100 WBC (Bld) 0.7 % [facility] Differential cell count method Nom (Bld) Auto [facility] Eosinophils (Bld) [#/Vol] 0.98 10*3/uL High <0.46 k/uL [facility] Eosinophils/100 WBC (Bld) 10.2 % [facility] Erythrocyte distribution width (RBC) [Ratio] 19.5 % High 11.5 - 15.0 % [facility] Hematocrit (Bld) [Volume fraction] 33.5 % Low 39.0 - 51.0 % [facility] Hemoglobin (Bld) [Mass/Vol] 10.1 g/dL Low 13.0 - 17.0 g/dL [facility] Immature granulocytes (Bld) [#/Vol] 0.05 10*3/uL <0.10 k/uL [facility] Immature granulocytes/100 WBC (Bld) 0.5 % [facility] Lymphocytes (Bld) [#/Vol] 1.59 10*3/uL 1.00 - 4.00 k/uL [facility] Lymphocytes/100 WBC (Bld) 16.6 % [facility] MCH (RBC) [Entitic mass] 25.9 pg Low 26. 0 - 34.0 pg [facility] MCHC (RBC) [Mass/Vol] 30.1 g/dL Low 30.5 - 36.0 g/dL [facility] MCV (RBC) [Entitic vol] 85.9 fL 80.0 - 100.0 fL [facility] Monocytes (Bld) [#/Vol] 0.76 10*3/uL <0.87 k/uL [facility] Monocytes/100 WBC (Bld) 7.9 % [facility] Neutrophils (Bld) [#/Vol] 6.12 10*3/uL 1.45 - 7.50 k/uL [facility] Neutrophils/100 WBC (Bld) 64.1 % [facility] Nucleated RBC (Bld) [#/Vol] <0.01 k/uL [facility] Nucleated RBC/100 WBC (Bld) [Ratio] 0.0 /100 WBC [facility] Platelet mean volume (Bld) [Entitic vol] 12.0 fL 9.0 - 12.7 fL [facility] Platelets (Bld) [#/Vol] 258 10*3/uL 150 - 400 k/uL [facility] RBC (Bld) [#/Vol] 3.90 10*6/uL Low 4.20 - 6.0 0 m/uL [facility] WBC (Bld) [#/Vol] 9.57 10*3/uL 3.70 - 11.00 k/uL [facility] CBC W Auto Differential pane l (Bld)on 04-19-2023 Basophils (Bld) [#/Vol] 0.12 10*3/uL High <0.11 k/uL [facility] Basophils/100 WBC (Bld) 1.2 % [facility] Differential cell count method Nom (Bld) Auto [facility] Eosinophils (Bld) [#/Vol] 0.52 10*3/uL High <0.46 k/uL [facility] Eosinophils/100 WBC (Bld) 5.0 % [facility] Erythrocyte distribution width (RBC) [Ratio] 15.8 % High 11.5 - 15.0 % [facility] Hematocrit (Bld) [Volume fraction] 33.3 % Low 39.0 - 51.0 % [facility] Hemoglobin (Bld) [Mass/Vol] 9.6 g/dL Low 13.0 - 17.0 g/dL [facility] Immature granulocytes (Bld) [#/Vol] 0.06 10*3/uL <0.10 k/uL [facility] Immature granulocytes/100 WBC (Bld) 0.6 % [facility] Lymphocytes (Bld) [#/Vol] 1.55 10*3/uL 1.00 - 4.00 k/uL [facility] Lymphocytes/100 WBC (Bld) 14.9 % [facility] MCH (RBC) [Entitic mass] 25.0 pg Low 26. 0 - 34.0 pg [facility] MCHC (RBC) [Mass/Vol] 28.8 g/dL Low 30.5 - 36.0 g/dL [facility] MCV (RBC) [Entitic vol] 86.7 fL 80.0 - 100.0 fL [facility] Monocytes (Bld) [#/Vol] 1.02 10*3/uL High <0.87 k/uL [facility] Monocytes/100 WBC (Bld) 9.8 % [facility] Neutrophils (Bld) [#/Vol] 7.12 10*3/uL 1.45 - 7.50 k/uL [facility] Neutrophils/100 WBC (Bld) 68.5 % [facility] Nucleated RBC (Bld) [#/Vol] <0.01 k/uL [facility] Nucleated RBC/100 WBC (Bld) [Ratio] 0.0 /100 WBC [facility] Platelet mean volume (Bld) [Entitic vol] 11.3 fL 9.0 - 12.7 fL [facility] Platelets (Bld) [#/Vol] 462 10*3/uL High 150 - 400 k/uL [facility] RBC (Bld) [#/Vol] 3.84 10*6/uL Low 4.20 - 6.0 0 m/uL [facility] WBC (Bld) [#/Vol] 10.39 10*3/uL 3.70 - 11.00 k/uL [facility] Absolute lymphocyte countOrd ered By: Matt Ashraf on 04-11-2023 Lymphocytes Auto (Unsp spec) [#/Vol] 2.67 10*3/uL 0.83-4.51 [facility] Basophil percentageOrdered B y: Matt Ashraf on 04-11-2023 Basophils/100 WBC (Bld) 0.9 % 0-1 [facility] Chloride [Moles/Vol] 110 mmol/L 98-107 [facility] Eosinophils/100 WBC (Bld) 5.6 % 0-5 [facility] Glucose [Mass/Vol] 79 mg/dL 74-106 [facility] Neutrophils (Bld) [#/Vol] 5.4 10*3/uL 2.0-7.7 [facility] Neutrophils/100 WBC (Bld) 54.1 % 47-70 [facility] Potassium [Moles/Vol] 3.7 mmol/L 3.5-5.1 [facility] Sodium [Moles/Vol] 143 mmol/L 136-145 [facility] WBC (Bld) [#/Vol] 10.0 10*3/uL 4.4-11.0 [facility] Blood erythrocytes count (nu mber/volume)Ordered By: Matt Ashraf on 04-11-2023 RBC (Bld) [#/Vol] 3.44 10*6/uL 4.6-6.2 [facility] Blood hemoglobin measurement (mass/volume)Ordered By: Matt Ashraf on 04-11-2023 Hemoglobin (Bld) [Mass/Vol] 8.7 g/dL 13.0-16.5 [facility] Blood lymphocytes/100 leukoc ytesOrdered By: Matt Ashraf on 04-11-2023 Lymphocytes/100 WBC (Bld) 26.7 % 19-41 [facility] Blood monocytes/100 leukocyt esOrdered By: Matt Ashraf on 04-11-2023 Monocytes/100 WBC (Bld) 12.3 % 0-10 [facility] Blood platelet mean volumeOr dered By: Matt Ashraf on 04-11-2023 Platelet mean volume (Bld) [Entitic vol] 10.8 fL 6.2-12.0 [facility] CNPNon 04-11-2023 ESTELLAN Telephone ([id number]) AFSHIN ZEE ([id number]) 1955 Date Time Provider Department 04/11/23 JORGE CARDOSO During your visit today, we recorded the following information about you: Jorge Cardoso MD 04/11/2023 7:31 PM Signed FOLLOW UP ENDOSCOPY - RESULTS AND RECOMMENDATIONS NAME: Afshin Zee CLINIC NO.: [id number] : 1955 DATE: April 11, 2023 PRIMARY CARE PROVIDER: Jaci Arroyo MD Afshin Zee is a patient referred for endoscopy for significant GI bleeding requiring transfusion admitted to [facility]. I performed upper and lower endoscopy on April 10, 2023. The patient was found to have: Upper Endoscopy Impression: - Normal examined jejunum. - Normal third portion of the duodenum. - Duodenitis. - Gastritis. Biopsied. - Non-severe reflux esophagitis. Lower Endoscopy Findings: The perianal and digital rectal examinations were normal. A 6 mm polyp was found in the hepatic flexure. The polyp was sessile. The polyp was removed with a cold snare. Resection and retrieval were complete. To prevent bleeding after the polypectomy, three hemostatic clips were successfully placed (MR conditional). There was no bleeding at the end of the procedure. A few small and large-mouthed diverticula were found in the left colon. A frond-like/villous partially obstructing large mass was found at 15 cm proximal to the anus. The mass was partially circumferential (involving one-third of the lumen circumference). The mass measured three cm in length. No bleeding was present. Biopsies were taken with a cold forceps for histology. The exam was otherwise without abnormality on direct and retroflexion views. Pathology demonstrated: A. Stomach, antrum, biopsy: - Gastric antral mucosa with reactive epithelial changes. - No morphologic evidence of Helicobacter pylori organisms. B. Colon, hepatic flexure, polyp, polypectomy: - Tubular adenoma. C. Rectum, mass, biopsy: - Superficial fragments of tubular adenoma (see comment). IMPRESSION: Mild gastritis duodenitis and esophagitis, small hepatic flexure polyp. Larger fungating tumor approximately two thirds circumference 15 cm from the rectum. PLAN: Recommend the patient continue his PPI. I forwarded my images and will forward this note to Dr. Devlin for consideration of transanal Endo surgery versus advanced endoscopic resection. The patient is instructed to follow-up with me when I return I have instructed my staff to forward the above information to the patient and to the appropriate providers Joie BriannaJAVI 04/12/2023 1:54 PM Signed Updated surgical history and mailed results to patient. Brianna Salter LPN Amaya Blanco 04/18/2023 9:42 AM Signed Spouse is calling in regards to EGD results and has questions please advise the spouse. Mayela Mcgrath LPN 04/18/2023 10:07 AM Signed Tried calling spouse, no answer. LVM to call office back. JAVI Oropeza Samaria, LPN 04/18/2023 10:36 AM Signed Spoke with patients spouse regarding results. Spouse was upset she had not received results from polyp and mass back yet. Advised that results were mailed out due to no follow up appointment, spouse stated patient had a follow up but not with Dr. Cardoso. Advised on pathology findings below in results note, explained tubular adenoma is precancerous polyp that could eventually turn into colorectal cancer. Advised that [facility] to repeat colonoscopy in 1 year for surveillance. wanted to know if Dr. Cardoso had heard from Dr. Devlin. Advised [place] at this time. Advised that Walker has forwarded everything to Dr. Devlin. asked if she can have Dr. Devlin office number, provided her with this number. Patient verbalized understanding of results. Mayela Mcgrath LPN Allergies As of Date: 04/11/2023 Noted Allergy Reaction DOXYCYCLINE 12/11/2022 8 - GI Upset Comments: GI upset (stomach ache/cramping/diarrhea ) and splotchy face SULFATE SALT 10/03/2018 4 - Hives ZPAK (AZITHROMYCIN) 10/03/2018 4 - Hives LISINOPRIL 09/27/2016 7 - Swelling Comments: Lip swelling after starting lisinopril. Date Reviewed: 04/10/2023 Reviewed by: Nenita Patrick, DIANE - Fully Assessed Reason for Visit: Results [95] Prescriptions as of 04/18/2023 - baclofen 10 mg tablet TAKE 1/2 TABLET BY MOUTH THREE TIMES A DAY - clopidogrel (PLAVIX) 75 mg tablet TAKE 1 TABLET BY MOUTH ONCE DAILY *EMERGENCY REFILL* - aspirin, enteric coated (ASPIRIN, ENTERIC COATED) 81 mg EC tablet Take 81 mg by mouth once daily. - tiotropium-olodaterol (STIOLTO RESPIMAT) 2.5-2.5 mcg/actuation Inhale 2 Puffs as instructed once daily. - albuterol (PROVENTIL) 2.5 mg /3 mL (0.083 %) nebulizer solution Use 3 mL via nebulizer every 4 hours as needed for wheezing/shortness of breath. Use (more content not included)... Normal [facility] Determination of erythrocyte mean corpuscular volume (MCV)Ordered By: Matt Ashraf on 04-11-2023 MCV (RBC) [Entitic vol] 88.4 fL 80-94 [facility] Hematocrit Auto (Bld) [Volum e fraction]Ordered By: mtplankintonamadou Senvijay on 04-11-2023 Hematocrit (Bld) [Volume fraction] 30.4 % 40-54 [facility] Laboratory - Chemistry and C hemistry - challengeOrdered By: [facility]vij[facility] on 04-11-2023 CO2 [Moles/Vol] 26.0 mmol/L 21.0-32.0 [facility] Urea nitrogen/Creatinine [Mass ratio] 13.2 mg/mg 10-20 [facility] - Hematology and Cell countsOrdered By: mtplankintonamadou Senvijay on 04-11-2023 Erythrocyte distribution width (RBC) [Entitic vol] 52.6 fL 35.1-43.9 [facility] Erythrocyte distribution width (RBC) [Ratio] 16.1 % 11.6-14.6 [facility] Immature granulocytes/100 WBC (Bld) 0.400 % 0.0-0.9 [facility] Comment on above: IG% - Immature Granu locytes (promyelocytes, myelocytes and metamyelocytes) > 1% indicates that a LEFT SHIFT is Present. MCH (RBC) [Entitic mass] 25.3 pg 27.0-32.0 [facility] Nucleated RBC/100 WBC (Bld) [Ratio] 0 % 0-5 [facility] MCHC Auto (RBC) [Mass/Vol]Or dered By: mtplankintonamadou Ashraf on 09-07-2023 MCHC (RBC) [Mass/Vol] 28.6 g/dL 32-36 [facility] No Panel InformationOrdered By: Matt Ashraf on 04-11-2023 Estimated GFR (MDRD) Amer 67 mL/min >60 [facility] Comment on above: GFR Calc Estimated GFR (MDRD) Non-Af Amer 55 mL/min >60 [facility] Comment on above: Non- GFR Calc Platelets bldOrdered By: Frantz Ashraf on 04-11-2023 Platelets (Bld) [#/Vol] 533 10*3/uL 150-450 [facility] Serum or plasma calcium jerome urement (mass/volume)Ordered By: Matt Ashraf on 04-11-2023 Calcium [Mass/Vol] 8.4 mg/dL 8.5-10.1 [facility] Serum or plasma creatinine m easurement (mass/volume)Ordered By: Matt Ashraf on 04-11-2023 Creatinine [Mass/Vol] 1.36 mg/dL 0.70-1.30 [facility] Comment on above: The validity of the calculated GFR & GFRAA in patients over 70 years has not been determined. Clinical correlation is essential. Serum or plasma urea nitroge n measurement (mass/volume)Ordered By: Matt Ashraf on 04-11-2023 Urea nitrogen [Mass/Vol] 18 mg/dL 7-18 [facility] Thin prep Papanicolaou smear with manual screeningOrdered By: Matt Ashraf on 04-11-2023 Thin prep Papanicolaou smear with manual screening 7 5-15 [facility] ANES POSTPROC EVALon 023 ANES POSTPROC EVAL HNO ID: [id number] Author: Dania Villa DO Service: Anesthesiology Author Type: Physician Type: Anesthesia Postprocedure Evaluation Filed: 04/10/2023 2:02 PM Note Text: POST ANESTHESIA EVALUATION NOTE : 1955 Procedure Summary Date: 04/10/23 Room / Location: [facility] Endoscopy Anesthesia Start: 1217 Anesthesia Stop: 1305 Procedures: EGD DIAGNOSTIC COLONOSCOPY DIAGNOSTIC Diagnosis: Iron deficiency anemia due to chronic blood loss (Recent GI bleeding) (Rectal bleeding) Scheduled Providers: Jorge Cardoso MD; Dania Villa DO; Sasha Neal APRN.FINANCE LEAD Responsible Provider: Dania Villa DO Anesthesia Type: MAC ASA Status: 3 Anesthesia Type: MAC Last Vitals Vitals Value Taken Time BP 124/58 04/10/23 1330 Temp 36 ?C (96.8 ?F) 04/10/23 1301 Pulse 79 04/10/23 1400 Resp 15 04/10/23 1400 SpO2 90 % 04/10/23 1400 Vitals shown include unvalidated device data. Post Anesthesia Patient Status Patient Evaluation: PACU. PACU/ICU Patient Condition: stable. Anticipated Disposition: phase 2 then home. Neurological Status: aware and responsive. Pulmonary Status: breathing comfortably on room air Airway Control: returned to baseline unsupported. Cardiovascular Status: stable. Pain Management: clinically adequate Postoperative Hydration: acceptable. Intraoperative Events: no significant anesthesia events Post Operative Nausea/Vomiting Status: no significant post operative nausea or vomiting Recommendation: continue current plan of care and further care per PACU/ICU/floor team. Anesthesia Observations No Documentation SIGNATURE: Dania Villa DO PATIENT NAME: Afshin Zee DATE: April 10, 2023 TIME: 2:02 PM CSN: [id number] [facility] ANES PRE-OPon 04-10-2023 ANES PRE-OP HNO ID: [id number] Author: Dania Villa DO Service: Anesthesiology Author Type: Physician Type: Anesthesia Preprocedure Evaluation Filed: 04/10/2023 11:43 AM Note Text: Summary: 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 DARON, ephysema. FULL code periop ANESTHESIOLOGY DAY OF SURGERY NOTE : 1955 Procedure Information Date/Time: 04/10/23 1200 Scheduled providers: Jorge Cardoso MD; Dania Villa DO; Sasha Neal APRN.FINANCE LEAD Procedures: EGD DIAGNOSTIC COLONOSCOPY DIAGNOSTIC Location: [facility] Endoscopy Estimated body mass index is 24.82 kg/m? as calculated from the following: Height as of 04/05/23: 182.9 cm (6'). Weight as of 04/05/23: 83 kg (183 lb). Most recent hematocrit and potassium results: Hematocrit (I-STAT) 39.1 10/06/2022 Potassium (I-STAT) 4.7 02/26/2023 Relevant Problems CARDIO (+) Coronary artery disease involving [place] coronary artery of [place] heart without angina pectoris (+) Essential hypertension (+) Occlusion of left carotid artery (+) Paroxysmal atrial fibrillation (HCC) -RENAL (+) Stage 3a chronic kidney disease (HCC) NEURO-PSYCH (+) Stroke (cerebrum) (HCC) PULMONARY (+) Centrilobular emphysema ([facility]) I - PHYSICAL EVALUATION AIRWAY Patient intubated: No. Tracheostomy tube not present Mallampati: II. TM distance: >3 FB. Neck ROM: full ROM without neurological symptoms. Mouth opening: adequate. Short neck: no. Thick neck: no DENTAL Dentures, upper: complete. Dentures, lower: complete. Additional exam findings: yes. CARDIOVASCULAR Rhythm: regular Rate: normal PULMONARY Breath sounds clear to auscultation. II - ANESTHESIA PLAN ASA Score: 3 Anesthetic Plan: MAC NPO Status: adequate Beta [place]ilda Monitoring Plan Monitoring plan: standard ASA. Post Procedure Analgesic Plan Postoperative analgesic plan: parenteral or oral opioids. Informed Consent Anesthetic risks, benefits, alternatives, personnel and consent discussed: yes. Patient / Responsible Libertarian agrees to proceed: yes Patient / Surrogate agrees to blood products: Yes DNR status reviewed with patient and/or family prior to surgery. patient elects to suspend DNR status in the perioperative setting (Full Code). Significant changes in the patient condition since the History and Physical, not otherwise documented in primary service progress note: no. Potential Anesthesia issues that may suggest increased risk of complications or contraindication to planned procedure: none. No vitals data found for the desired time range. Outpatient Medications as of 04/10/2023 Medication Sig - baclofen 10 mg tablet TAKE 1/2 TABLET BY MOUTH THREE TIMES A DAY - aspirin, enteric coated (ASPIRIN, ENTERIC COATED) 81 mg EC tablet Take 81 mg by mouth once daily. - amLODIPine (NORVASC) 10 mg tablet Take 0.5 tablets by mouth twice daily. Take 1/2 tablet twice daily - multivitamin tablet Take 1 tablet by mouth once daily. - fluticasone (FLONASE) 50 mcg/actuation nasal spray Use 1 [place] in each nostril twice daily. Rinse mouth after use. - busPIRone (BUSPAR) 10 mg tablet Take 1 tablet by mouth three times daily. - ezetimibe (ZETIA) 10 mg tablet Take 1 tablet by mouth once daily. - escitalopram oxalate (LEXAPRO) 20 mg tablet TAKE 1 TABLET BY MOUTH ONCE DAILY - apixaban (ELIQUIS) 5 mg tab(s) TAKE ONE (1) TABLET BY MOUTH TWICE DAILY - atorvastatin (LIPITOR) 40 mg tablet TAKE 1 TABLET BY MOUTH ONCE DAILY - famotidine (PEPCID) 20 mg tablet TAKE 1 TABLET BY MOUTH AT BEDTIME NEEDED - amiodarone (PACERONE) 100 mg tablet TAKE 1 TABLET BY MOUTH ONCE DAILY *DO NOT TAKE IF HEART RATE IS LESS THAN 40* - losartan (COZAAR) 25 mg tablet take 1 tablet by mouth once daily - metoprolol tartrate, short acting, (LOPRESSOR) 25 mg tablet Take 0.5 tablets by mouth twice daily. Hold if heart rate is less than 60 - tiotropium bromide (SPIRIVA RESPIMAT) 2.5 mcg/actuation inhaler Inhale as instructed. - traZODone (DESYREL) 100 mg tablet Take 1 tablet by mouth daily at bedtime. - clopidogrel (PLAVIX) 75 mg tablet TAKE 1 TABLET BY MOUTH ONCE DAILY *EMERGENCY REFILL* - tiotropium-olodaterol (STIOLTO RESPIMAT) 2.5-2.5 mcg/actuation Inhale 2 Puffs as instructed once daily. - albuterol (PROVENTIL) 2.5 mg /3 mL (0.083 %) nebulizer solution Use 3 mL via nebulizer every 4 hours as needed for wheezing/shortness of breath. Use over 5-15minutes. - LORazepam (ATIVAN) 0.5 mg Take 1-2 tablets by mouth three times daily as needed for up to 90 days. - potassium chloride (K-TAB) 10 mEq tablet Take 2 tablets by mouth three times daily. - Tadalafil (CIALIS) 10 mg tablet Take one pill 30-60 minutes prior to sexual activity as needed - hydroCHLOROthiazide (HYDRODIURIL, ESIDRIX) 12.5 mg tablet Take 1 t (more content not included)... Normal [facility] COLONOSCOPY DIAGNOSTICon [facility] Colonoscopyon 04-10-2023 Colonoscopy [facility] Gastrointestinal Endoscopy Patient Name: Afshin Zee Procedure Date: 04/10/2023 12:29 PM Date of : 1955 Admit Type: Outpatient Age: 67 Room: [facility] Gender: Male Note Status: Sorority Mother Override Attending MD: Jorge Cardoso MD Procedure: Colonoscopy Indications: Rectal bleeding Providers: Jorge Cardoso MD Patient Profile: This is a 67 year old male. Refer to note in patient chart for documentation of history and physical. Last Colonoscopy: date unknown. Unable to locate last colonoscopy report. Referring Physician: Jorge Cardoso MD (Referring MD) Medicines: Monitored Anesthesia Care Complications: No immediate complications. Requesting Provider: Procedure: Pre-Anesthesia Assessment: - Prior to the procedure, a History and Physical was performed, and patient medications and allergies were reviewed. The patient is competent. The risks and benefits of the procedure and the sedation options and risks were discussed with the patient. All questions were answered and informed consent was obtained. Patient identification and proposed procedure were verified by the physician, the nurse and the coil inspector in the pre-procedure area in the procedure room. Mental Status Examination: expressive aphasia. Airway Examination: normal oropharyngeal airway and neck mobility. Respiratory Examination: clear to auscultation. Prophylactic Antibiotics: The patient does not require prophylactic antibiotics. Prior Anticoagulants: The patient has taken no anticoagulant or antiplatelet agents. ASA Grade Assessment: III - A patient with severe systemic disease. After reviewing the risks and benefits, the patient was deemed in satisfactory condition to undergo the procedure. The anesthesia plan was to use monitored anesthesia care (MAC). Immediately prior to administration of medications, the patient was re-assessed for adequacy to receive sedatives. The heart rate, respiratory rate, oxygen saturations, blood pressure, adequacy of pulmonary ventilation, and response to care were monitored throughout the procedure. The physical status of the patient was re-assessed after the procedure. After I obtained informed consent, the scope was passed under direct vision. Throughout the procedure, the patient's blood pressure, pulse, and oxygen saturations were monitored continuously. The Colonoscope was introduced through the anus and advanced to the cecum, identified by the appendiceal orifice, ileocecal valve and palpation. The colonoscopy was performed without difficulty. The patient tolerated the procedure well. The quality of the bowel preparation was good. The ileocecal valve, appendiceal orifice, and rectum were photographed. Scope Withdrawal Time: 0 hours 18 minutes 39 seconds Moderate Sedation: MAC anesthesia was administered by the anesthesia team. Total Procedure Duration: 0 hours 22 minutes 31 seconds Findings: The perianal and digital rectal examinations were normal. A 6 mm polyp was found in the hepatic flexure. The polyp was sessile. The polyp was removed with a cold snare. Resection and retrieval were complete. To prevent bleeding after the polypectomy, three hemostatic clips were successfully placed (MR conditional). There was no bleeding at the end of the procedure. A few small and large-mouthed diverticula were found in the left colon. A frond-like/villous partially obstructing large mass was found at 15 cm proximal to the anus. The mass was partially circumferential (involving one-third of the lumen circumference). The mass measured three cm in length. No bleeding was present. Biopsies were taken with a cold forceps for histology. The exam was otherwise without abnormality on direct and retroflexion views. Impression: - One 6 mm polyp at the hepatic flexure, removed with a cold snare. Resected and retrieved. Clips (MR conditional) were placed. - Diverticulosis in the left colon. - Rule out malignancy, partially obstructing tumor at 15 cm proximal to the anus. Biopsied. - The examination was otherwise normal on direct and retroflexion views. Recommendation: - Discharge patient to home. - Resume previous diet. - Continue present medications. - Telephone my office for pathology results in 1 week. - Refer to a colo-rectal surgeon at appointment to be scheduled. - Patient has a contact number available for emergencies. The signs and symptoms of potential delayed complications were discussed with the patient. Return to normal activities tomorrow. Written discharge instructions were provided to the patient. - Resume Eliquis (apixaban) tomorrow and Plavix (clopidogrel) tomorrow at prior doses. - Repeat colonoscopy at appointment to be scheduled. Procedure Code(s): --- Professional --- 94549, Colonoscopy, flexible; with removal of tumor (more content not included)... Normal [facility] EGD DIAGNOSTICon 04-10-2023 [facility] HISTORY PHYSICALon 3 HISTORY PHYSICAL HNO ID: [id number] Author: Jorge Cardoso MD Service: General Surgery Author Type: Physician Type: HANDP Filed: 04/10/2023 12:09 PM Note Text: HISTORY AND PHYSICAL Afshin Yayo 1955 REFERRING PHYSICIAN: Jaci Arroyo MD CHIEF COMPLAINT: Consult (Iron deficency/ anemia) HPI: The patient is a 67 year old male referred for endoscopy. The patient had a previous supravascular accident which makes oral communication difficult and the patient becomes excited when trying to communicate. He is present with his . The patient is currently undergoing rehab at [facility]. He was found to have a significant of blood in his stool. The patient presented to [facility] emergency department on March 21, 2023. She had obtained a new motorized scooter and fell out of the scooter landing on his right side. CT scan of the head was unremarkable. He returned to the emergency department on the after having an additional 2 falls. At that time laboratory studies were obtained and the patient was found to have anemia with a hemoglobin of 6.5. He was given 2 units of packed red cells his hemoglobin improved to 9.6. Notation from the discharge summary for hospital states that he declined endoscopy at that time. The patient has a history of previous peptic ulcer disease and hemorrhoids. The patient is was with him at [facility] and went to give him a shower and noted bright red blood in the bathroom. Hemoglobin apparently at [facility] was checked 2 days previously and was maintained at 9. The patient is being seen by me today at the request of Dr. Jaci Arroyo MD for my opinion and advice regarding rectal bleeding and iron deficiency anemia. PAST MEDICAL HISTORY PAST MEDICAL HISTORY Diagnosis Date Acute cerebral infarction (HCC) left LEANN (acute kidney injury) (HCC) Anemia Aneurysm (HCC) Anxiety state Atrial fibrillation (HCC) 11/2016 Balanitis CAD (coronary artery disease) Carotid stenosis COPD (chronic obstructive pulmonary disease) (HCC) Dysphasia Emphysema lung (HCC) History of blood transfusion 03/2023 Hypertension Hypoxia 03/2023 DARON (obstructive sleep apnea) PVD (peripheral vascular disease) (HCC) Respiratory failure (HCC) hypoxic-ventilator dependent Stroke (cerebrum) (HCC) Tobacco abuse PAST SURGICAL HISTORY PAST SURGICAL HISTORY Procedure Laterality Date CABG CONSULT 10/30/2016 multi vessel HEART CATHETERIZATION 09/17/2016 TRACHEOSTOMY HX CURRENT MEDICATIONS Current Outpatient Medications Medication Sig baclofen 10 mg tablet TAKE 1/2 TABLET BY MOUTH THREE TIMES A DAY aspirin, enteric coated (ASPIRIN, ENTERIC COATED) 81 mg EC tablet Take 81 mg by mouth once daily. tiotropium-olodaterol (STIOLTO RESPIMAT) 2.5-2.5 mcg/actuation Inhale 2 Puffs as instructed once daily. albuterol (PROVENTIL) 2.5 mg /3 mL (0.083 %) nebulizer solution Use 3 mL via nebulizer every 4 hours as needed for wheezing/shortness of breath. Use over 5-15minutes. LORazepam (ATIVAN) 0.5 mg Take 1-2 tablets by mouth three times daily as needed for up to 90 days. amLODIPine (NORVASC) 10 mg tablet Take 0.5 tablets by mouth twice daily. Take 1/2 tablet twice daily fluticasone (FLONASE) 50 mcg/actuation nasal spray Use 1 [place] in each nostril twice daily. Rinse mouth after use. busPIRone (BUSPAR) 10 mg tablet Take 1 tablet by mouth three times daily. ezetimibe (ZETIA) 10 mg tablet Take 1 tablet by mouth once daily. escitalopram oxalate (LEXAPRO) 20 mg tablet TAKE 1 TABLET BY MOUTH ONCE DAILY apixaban (ELIQUIS) 5 mg tab(s) TAKE ONE (1) TABLET BY MOUTH TWICE DAILY atorvastatin (LIPITOR) 40 mg tablet TAKE 1 TABLET BY MOUTH ONCE DAILY famotidine (PEPCID) 20 mg tablet TAKE 1 TABLET BY MOUTH AT BEDTIME NEEDED amiodarone (PACERONE) 100 mg tablet TAKE 1 TABLET BY MOUTH ONCE DAILY *DO NOT TAKE IF HEART RATE IS LESS THAN 40* losartan (COZAAR) 25 mg tablet take 1 tablet by mouth once daily traZODone (DESYREL) 100 mg tablet Take 1 tablet by mouth daily at bedtime. Blood Pressure Monitor kit 1 application twice daily. Measure patient for correct size. Patient needs cuff for left arm readings. COMPOUNDED PRESCRIPTION Articulating AFO foot brace for right leg. Send to [employer]. Dx: I63.9 COMPOUNDED PRESCRIPTION EMBER WALKER DX I63.9 weight 162 # Diaper,Brief, Adult,Disposable (DEPEND REAL FIT BRIEF MEN L/XL) misc 1 Each as needed. Blood Pressure Monitor kit 1 Kit once daily. Please measure patient for correct size. clopidogrel (PLAVIX) 75 mg tablet TAKE 1 TABLET BY MOUTH ONCE DAILY *EMERGENCY REFILL* multivitamin tablet Take 1 tablet by mouth once daily. potassium chloride (K-TAB) 10 mEq tablet Take 2 tablets by mouth three times daily. Tadalafil (CIALIS) 10 mg tablet Take one pill 30-60 minutes prior to sexual activity as needed metoprolol tartrate, short acting, (LOPRESSOR) 25 mg tablet Take 0.5 (more content not included)... [facility] NURSING PROGon 04-10-2023 NURSING PROG HNO ID: [id number] Author: Kylie Galvez RN Service: ? Author Type: Registered Nurse Type: Nursing Progress Note Filed: 04/10/2023 3:05 PM Note Text: Call made to group home to give report. Gave report to RN. Also sent copy of instructions home with to give to group home. Pt being prepared for home. [facility] SURGICAL PATHOLOGYon 023 CASE REPORT [facility] Comment on above: Order Comment: Speci men Type: TISSUE SPECIMEN Ordering Facility: [facility] Address: [address] [place] [id number] Result Comment: [facility] Pathology Report Case: [id number] Authorizing Provider: Jorge Cardoso MD Collected: 04/10/2023 12:26 PM Ordering Location: [facility] Endoscopy Received: 04/10/2023 01:39 PM Pathologist: Elida Denny MD Specimens: A) - ANTRUM (STOMACH) BIOPSY B) - HEPATIC FLEXURE POLYP C) - RECTAL BIOPSY, Rectal mass bx Performed By: #### S #### [facility] CLIA [id number] [facility] [address] DIAGNOSIS COMMENT C. Correlation with the endoscopic findings is recommended. [facility] Comment on above: Order Comment: Speci men Type: TISSUE SPECIMEN Ordering Facility: [facility] Address: [address] [place] [address] Performed By: #### S #### [facility] CLIA [id number] [facility] [address] FINAL DIAGNOSIS [facility] Comment on above: Order Comment: Speci men Type: TISSUE SPECIMEN Ordering Facility: [facility] Address: [address] [place] [address] Result Comment: A. S tomach, antrum, biopsy: - Gastric antral mucosa with reactive epithelial changes. - No morphologic evidence of Helicobacter pylori organisms. B. Colon, hepatic flexure, polyp, polypectomy: - Tubular adenoma. C. Rectum, mass, biopsy: - Superficial fragments of tubular adenoma (see comment). Performed By: #### S #### [facility] CLIA [id number] [address] [place] [address] FINAL PERFORMING LAB [facility] Comment on above: Order Comment: Speci men Type: TISSUE SPECIMEN Ordering Facility: [facility] Address: [address] [address] Result Comment: Diag nostic interpretation performed at [facility], [address] [place] [address] CLIA# [id number] [employer] Checker: Silver Orellana M.D. Performed By: #### S #### [facility] CLIA [id number] [address] [place] [address] OF MINDY GROSS DESCRIPTION [facility] Comment on above: Order Comment: Speci men Type: TISSUE SPECIMEN Ordering Facility: [facility] Address: [address] [place] [phone] Result Comment: A. A NTRUM (STOMACH) BIOPSY Received in formalin is one piece of douglas, soft tissue measuring 0.3 x 0.2 x 0.2 cm. Totally submitted in one cassette. B. HEPATIC FLEXURE POLYP Received in formalin are multiple pieces of douglas, soft tissue aggregating to 1.0 x 0.2 x 0.2 cm. Totally submitted in one cassette. C. RECTAL BIOPSY Received in formalin are multiple pieces of douglas, soft tissue aggregating to 0.9 x 0.2 x 0.2 cm. Totally submitted in one cassette. Gross examination performed at [facility], [address] [place], [place] [id number] April 10, 2023 8:06 PM Performed By: #### S #### [facility] CLIA [id number] [address] [place] [address] [id number] [place], [place] [id number] [facility] Upper GI endoscopyon 023 Upper GI endoscopy [facility] Gastrointestinal Endoscopy Patient Name: Afshin Zee Procedure Date: 04/10/2023 11:38 AM Date of : 1955 Admit Type: Outpatient Age: 67 Room: [facility] Gender: Male Note Status: Sorority Mother Override Attending MD: Jorge Cardoso MD Procedure: Upper GI endoscopy Indications: Recent gastrointestinal bleeding Providers: Jorge Cardoso MD Patient Profile: This is a 67 year old male. Refer to note in patient chart for documentation of history and physical. Referring Physician: Jorge Cardoso MD (Referring MD) Medicines: Monitored Anesthesia Care Complications: No immediate complications. Requesting Provider: Procedure: Pre-Anesthesia Assessment: - Prior to the procedure, a History and Physical was performed, and patient medications and allergies were reviewed. The patient is unable to give consent secondary to the patient's altered mental status. The risks and benefits of the procedure and the sedation options and risks were discussed with the patient's spouse. All questions were answered and informed consent was obtained. Patient identification and proposed procedure were verified by the physician, the nurse and the coil inspector in the pre-procedure area in the procedure room. Mental Status Examination: s/p CVA - expressive aphasia. Airway Examination: normal oropharyngeal airway and neck mobility. Respiratory Examination: clear to auscultation. Prophylactic Antibiotics: The patient does not require prophylactic antibiotics. Prior Anticoagulants: The patient has taken no anticoagulant or antiplatelet agents. ASA Grade Assessment: III - A patient with severe systemic disease. After reviewing the risks and benefits, the patient was deemed in satisfactory condition to undergo the procedure. The anesthesia plan was to use monitored anesthesia care (MAC). Immediately prior to administration of medications, the patient was re-assessed for adequacy to receive sedatives. The heart rate, respiratory rate, oxygen saturations, blood pressure, adequacy of pulmonary ventilation, and response to care were monitored throughout the procedure. The physical status of the patient was re-assessed after the procedure. After obtaining informed consent, the endoscope was passed under direct vision. Throughout the procedure, the patient's blood pressure, pulse, and oxygen saturations were monitored continuously. The Endoscope was introduced through the mouth, and advanced to the jejunum. The upper GI endoscopy was accomplished without difficulty. The patient tolerated the procedure well. Moderate Sedation: MAC anesthesia was administered by the anesthesia team. Total Procedure Duration: 0 hours 5 minutes 12 seconds Findings: The examined jejunum was normal. The third portion of the duodenum was normal. Scattered mild inflammation was found in the duodenal bulb. Scattered minimal inflammation characterized by erythema was found in the entire examined stomach. Biopsies were taken with a cold forceps for histology. Non-severe esophagitis was found in the lower third of the esophagus. Impression: - Normal examined jejunum. - Normal third portion of the duodenum. - Duodenitis. - Gastritis. Biopsied. - Non-severe reflux esophagitis. Recommendation: - Discharge patient to home. - Resume previous diet. - Continue present medications. - Return to my office in 1 week. Procedure Code(s): --- Professional --- 40125, Esophagogastroduodenos copy, flexible, transoral; with biopsy, single or multiple CPT copyright 2020 [employer]. All rights reserved. The codes documented in this report are preliminary and upon mine supervisor review may be revised to meet current compliance requirements. Attending Participation: I was present and participated during the entire procedure, including non-lord portions, and during the administration and monitoring of Moderate Sedation. Scope In: 12:22:23 PM Scope Out: 12:27:35 PM MD Jorge Sparrow MD 04/10/2023 12:59:54 PM This report has been signed electronically by Jorge Cardoso MD Number of Addenda: 0 Note Initiated On: 04/10/2023 11:38 AM Estimated Blood Loss: Estimated blood loss: none. Normal [facility] Absolute lymphocyte countOrd ered By: Matt Ashraf on 04-04-2023 Lymphocytes Auto (Unsp spec) [#/Vol] 2.95 10*3/uL 0.83-4.51 [facility] Basophil percentageOrdered B y: Matt Ashraf on 04-04-2023 Basophils/100 WBC (Bld) 1.1 % 0-1 [facility] Chloride [Moles/Vol] 110 mmol/L 98-107 [facility] Eosinophils/100 WBC (Bld) 7.4 % 0-5 [facility] Glucose [Mass/Vol] 85 mg/dL 74-106 [facility] Neutrophils (Bld) [#/Vol] 5.2 10*3/uL 2.0-7.7 [facility] Neutrophils/100 WBC (Bld) 50.3 % 47-70 [facility] Potassium [Moles/Vol] 3.8 mmol/L 3.5-5.1 [facility] Sodium [Moles/Vol] 141 mmol/L 136-145 [facility] WBC (Bld) [#/Vol] 10.3 10*3/uL 4.4-11.0 [facility] Blood erythrocytes count (nu mber/volume)Ordered By: Matt Ashraf on 04-04-2023 RBC (Bld) [#/Vol] 3.67 10*6/uL 4.6-6.2 [facility] Blood hemoglobin measurement (mass/volume)Ordered By: Matt Ashraf on 04-04-2023 Hemoglobin (Bld) [Mass/Vol] 9.5 g/dL 13.0-16.5 [facility] Blood lymphocytes/100 leukoc ytesOrdered By: mathieu Ashraf on 04-04-2023 Lymphocytes/100 WBC (Bld) 28.5 % 19-41 [facility] Blood monocytes/100 leukocyt esOrdered By: Matt Ashraf on 04-04-2023 Monocytes/100 WBC (Bld) 12.2 % 0-10 [facility] Blood platelet mean volumeOr dered By: Matt Ashraf on 04-04-2023 Platelet mean volume (Bld) [Entitic vol] 10.5 fL 6.2-12.0 [facility] Determination of erythrocyte mean corpuscular volume (MCV)Ordered By: Matt Ashraf on 04-04-2023 MCV (RBC) [Entitic vol] 86.1 fL 80-94 [facility] Hematocrit Auto (Bld) [Volum e fraction]Ordered By: Matt Ashraf on 04-04-2023 Hematocrit (Bld) [Volume fraction] 31.6 % 40-54 [facility] - Chemistry and C hemistry - challengeOrdered By: Matt Ashraf on 04-04-2023 CO2 [Moles/Vol] 25.0 mmol/L 21.0-32.0 [facility] Urea nitrogen/Creatinine [Mass ratio] 16.5 mg/mg 10-20 [facility] - Hematology and Cell countsOrdered By: mtplankintonamadou Ashraf on 04-04-2023 Erythrocyte distribution width (RBC) [Entitic vol] 52.0 fL 35.1-43.9 [facility] Erythrocyte distribution width (RBC) [Ratio] 16.5 % 11.6-14.6 [facility] Immature granulocytes/100 WBC (Bld) 0.500 % 0.0-0.9 [facility] Comment on above: IG% - Immature Granu locytes (promyelocytes, myelocytes and metamyelocytes) > 1% indicates that a LEFT SHIFT is Present. MCH (RBC) [Entitic mass] 25.9 pg 27.0-32.0 [facility] Nucleated RBC/100 WBC (Bld) [Ratio] 0 % 0-5 [facility] MCHC Auto (RBC) [Mass/Vol]Or dered By: Matt Ashraf on 04-04-2023 MCHC (RBC) [Mass/Vol] 30.1 g/dL 32-36 [facility] No Panel InformationOrdered By: Matt Ashraf on 04-04-2023 Estimated GFR (MDRD) Amer 77 mL/min >60 [facility] Comment on above: GFR Calc Estimated GFR (MDRD) Non-Af Amer 63 mL/min >60 [facility] Comment on above: Non- GFR Calc Platelets bldOrdered By: Frantzvijay schneider Andriy on 04-04-2023 Platelets (Bld) [#/Vol] 396 10*3/uL 150-450 [facility] Serum or plasma calcium jerome urement (mass/volume)Ordered By: Matt Ashraf on 04-04-2023 Calcium [Mass/Vol] 8.5 mg/dL 8.5-10.1 [facility] Serum or plasma creatinine m easurement (mass/volume)Ordered By: Matt Ashraf on 04-04-2023 Creatinine [Mass/Vol] 1.21 mg/dL 0.70-1.30 [facility] Comment on above: The validity of the calculated GFR & GFRAA in patients over 70 years has not been determined. Clinical correlation is essential. Serum or plasma urea nitroge n measurement (mass/volume)Ordered By: Matt Ashraf on 04-04-2023 Urea nitrogen [Mass/Vol] 20 mg/dL 7-18 [facility] Thin prep Papanicolaou smear with manual screeningOrdered By: Matt Ashraf on 04-04-2023 Thin prep Papanicolaou smear with manual screening 6 5-15 [facility] Absolute lymphocyte countOrd ered By: Matt Ashraf on 04-02-2023 Lymphocytes Auto (Unsp spec) [#/Vol] 2.53 10*3/uL 0.83-4.51 [facility] Basophil percentageOrdered B y: Matt Ashraf on 04-02-2023 Basophils/100 WBC (Bld) 0.9 % 0-1 [facility] Eosinophils/100 WBC (Bld) 8.3 % 0-5 [facility] Neutrophils (Bld) [#/Vol] 5.3 10*3/uL 2.0-7.7 [facility] Neutrophils/100 WBC (Bld) 52.8 % 47-70 [facility] WBC (Bld) [#/Vol] 10.1 10*3/uL 4.4-11.0 [facility] Blood erythrocytes count (nu mber/volume)Ordered By: Matt Ashraf on 04-02-2023 RBC (Bld) [#/Vol] 3.57 10*6/uL 4.6-6.2 [facility] Blood hemoglobin measurement (mass/volume)Ordered By: Matt Ashraf on 04-02-2023 Hemoglobin (Bld) [Mass/Vol] 9.1 g/dL 13.0-16.5 [facility] Blood lymphocytes/100 leukoc ytesOrdered By: mtplankintonamadou Ashraf on 04-02-2023 Lymphocytes/100 WBC (Bld) 25.2 % 19-41 [facility] Blood monocytes/100 leukocyt esOrdered By: [facility] Ash[facility] on 04-02-2023 Monocytes/100 WBC (Bld) 12.2 % 0-10 [facility] Blood platelet mean volumeOr dered By: Youngplankintonamadou Ashraf on 04-02-2023 Platelet mean volume (Bld) [Entitic vol] 10.6 fL 6.2-12.0 [facility] Determination of erythrocyte mean corpuscular volume (MCV)Ordered By: Matt Ashraf on 04-02-2023 MCV (RBC) [Entitic vol] 87.1 fL 80-94 [facility] Hematocrit Auto (Bld) [Volum e fraction]Ordered By: Matt Ashraf on 04-02-2023 Hematocrit (Bld) [Volume fraction] 31.1 % 40-54 [facility] - Hematology and Cell countsOrdered By: mtplankintonamadou Ashraf on 04-02-2023 Erythrocyte distribution width (RBC) [Entitic vol] 52.5 fL 35.1-43.9 [facility] Erythrocyte distribution width (RBC) [Ratio] 16.5 % 11.6-14.6 [facility] Immature granulocytes/100 WBC (Bld) 0.600 % 0.0-0.9 [facility] Comment on above: IG% - Immature Granu locytes (promyelocytes, myelocytes and metamyelocytes) > 1% indicates that a LEFT SHIFT is Present. MCH (RBC) [Entitic mass] 25.5 pg 27.0-32.0 [facility] Nucleated RBC/100 WBC (Bld) [Ratio] 0 % 0-5 [facility] MCHC Auto (RBC) [Mass/Vol]Or dered By: Matt Ashraf on 04-02-2023 MCHC (RBC) [Mass/Vol] 29.3 g/dL 32-36 [facility] Platelets bldOrdered By: Frantz Ashraf on 04-02-2023 Platelets (Bld) [#/Vol] 338 10*3/uL 150-450 [facility] Absolute lymphocyte countOrd ered By: Matt Ashraf on 03-28-2023 Lymphocytes Auto (Unsp spec) [#/Vol] 1.96 10*3/uL 0.83-4.51 [facility] Basophil percentageOrdered B y: Matt Ashraf on 03-28-2023 Basophils/100 WBC (Bld) 0.8 % 0-1 [facility] Bilirubin [Mass/Vol] 0.80 mg/dL 0.20-1.00 [facility] Comment on above: For patients on eltr ombopag therapy, use of Dimension [place] TBIL is not recommended. Chloride [Moles/Vol] 109 mmol/L 98-107 [facility] Cholesterol [Mass/Vol] 99 mg/dL <200 [facility] Comment on above: <200 mg/dL Desirable 200-240 mg/dL Borderline >240 mg/dL High Risk Eosinophils/100 WBC (Bld) 8.7 % 0-5 [facility] Glucose [Mass/Vol] 97 mg/dL 74-106 [facility] Neutrophils (Bld) [#/Vol] 4.8 10*3/uL 2.0-7.7 [facility] Neutrophils/100 WBC (Bld) 53.8 % 47-70 [facility] Potassium [Moles/Vol] 3.7 mmol/L 3.5-5.1 [facility] Protein [Mass/Vol] 6.1 g/dL 6.4-8.2 [facility] Sodium [Moles/Vol] 143 mmol/L 136-145 [facility] Triglyceride [Mass/Vol] 121 mg/dL <199 [facility] Comment on above: The drugs N-Acetylcy steine and Metamizole may falsely depress this assay.Serum Triglycerides Reference Interval Normal <150 mg/dL Borderline high 150 - 199 mg/dL High 200 - 499 mg/dL Very High > or = 500 mg/dL WBC (Bld) [#/Vol] 8.9 10*3/uL 4.4-11.0 [facility] Blood erythrocytes count (nu mber/volume)Ordered By: Matt Ashraf on 03-28-2023 RBC (Bld) [#/Vol] 3.65 10*6/uL 4.6-6.2 [facility] Blood hemoglobin measurement (mass/volume)Ordered By: Matt Ashraf on 03-28-2023 Hemoglobin (Bld) [Mass/Vol] 9.3 g/dL 13.0-16.5 [facility] Blood lymphocytes/100 leukoc ytesOrdered By: Matt Ashraf on 03-28-2023 Lymphocytes/100 WBC (Bld) 22.1 % 19-41 [facility] Blood monocytes/100 leukocyt esOrdered By: Matt Ashraf on 03-28-2023 Monocytes/100 WBC (Bld) 14.0 % 0-10 [facility] Blood platelet mean volumeOr dered By: Matt Ashraf on 03-28-2023 Platelet mean volume (Bld) [Entitic vol] 10.3 fL 6.2-12.0 [facility] Determination of erythrocyte mean corpuscular volume (MCV)Ordered By: Matt Ashraf on 03-28-2023 MCV (RBC) [Entitic vol] 89.0 fL 80-94 [facility] Hematocrit Auto (Bld) [Volum e fraction]Ordered By: Matt Ashraf on 03-28-2023 Hematocrit (Bld) [Volume fraction] 32.5 % 40-54 [facility] - Chemistry and C hemistry - challengeOrdered By: Matt Ashraf on 03-28-2023 ALP [Catalytic activity/Vol] 112 U/L 45-117 [facility] ALT [Catalytic activity/Vol] 24 U/L 16-61 [facility] CO2 [Moles/Vol] 29.0 mmol/L 21.0-32.0 [facility] Globulin (S) [Mass/Vol] 3.1 g/dL 2.2-4.2 [facility] Urea nitrogen/Creatinine [Mass ratio] 10.3 mg/mg 10-20 [facility] - Hematology and Cell countsOrdered By: Matt Ashraf on 03-28-2023 Erythrocyte distribution width (RBC) [Entitic vol] 49.7 fL 35.1-43.9 [facility] Erythrocyte distribution width (RBC) [Ratio] 15.9 % 11.6-14.6 [facility] Immature granulocytes/100 WBC (Bld) 0.600 % 0.0-0.9 [facility] Comment on above: IG% - Immature Granu locytes (promyelocytes, myelocytes and metamyelocytes) > 1% indicates that a LEFT SHIFT is Present. MCH (RBC) [Entitic mass] 25.5 pg 27.0-32.0 [facility] Nucleated RBC/100 WBC (Bld) [Ratio] 0.2 % 0-5 [facility] MCHC Auto (RBC) [Mass/Vol]Or dered By: Matt Ashraf on 03-28-2023 MCHC (RBC) [Mass/Vol] 28.6 g/dL 32-36 [facility] No Panel InformationOrdered By: Matt Ashraf on 03-28-2023 Estimated GFR (MDRD) Amer 80 mL/min >60 [facility] Comment on above: GFR Calc Estimated GFR (MDRD) Non-Af Amer 66 mL/min >60 [facility] Comment on above: Non- GFR Calc Platelets bldOrdered By: Frantz Ashraf on 03-28-2023 Platelets (Bld) [#/Vol] 309 10*3/uL 150-450 [facility] Serum or plasma albumin jerome urement (mass/volume)Ordered By: Matt Ashraf on 03-28-2023 Albumin [Mass/Vol] 3.0 g/dL 3.2-5.0 [facility] Serum or plasma albumin/glob ulin mass ratioOrdered By: Matt Ashraf on 03-28-2023 Albumin/Globulin [Mass ratio] 1.0 {ratio} 0.9-2.4 [facility] Serum or plasma calcium jerome urement (mass/volume)Ordered By: Matt Ashraf on 03-28-2023 Calcium [Mass/Vol] 8.5 mg/dL 8.5-10.1 [facility] Serum or plasma cholesterol in HDL measurement (mass/volume)Ordered By: Matt Ashraf on 03-28-2023 Cholesterol in HDL [Mass/Vol] 37 mg/dL >40 [facility] Comment on above: The drugs N-Acetylcy steine and Metamizole may falsely depress this assay. Reference Range HDL <40 mg/dL Low HDL Cholesterol HDL >or= 60 mg/dL High HDL Cholesterol Serum or plasma cholesterol in VLDL measurement (mass/volume)Ordered By: Matt Ashraf on 03-28-2023 Cholesterol in VLDL [Mass/Vol] 24 mg/dL 5-40 [facility] Serum or plasma creatinine m easurement (mass/volume)Ordered By: Matt Ashraf on 03-28-2023 Creatinine [Mass/Vol] 1.17 mg/dL 0.70-1.30 [facility] Comment on above: The validity of the calculated GFR & GFRAA in patients over 70 years has not been determined. Clinical correlation is essential. Serum or plasma low density lipoprotein (LDL) cholesterol measurement (mass/volume)Ordered By: Matt Ashraf on 03-28-2023 Cholesterol in LDL [Mass/Vol] 38 mg/dL 0-130 [facility] Serum or plasma urea nitroge n measurement (mass/volume)Ordered By: Matt Ashraf on 03-28-2023 Urea nitrogen [Mass/Vol] 12 mg/dL 7-18 [facility] Thin prep Papanicolaou smear with manual screeningOrdered By: Matt Ashraf on 03-28-2023 Thin prep Papanicolaou smear with manual screening 18 U/L 15-37 [facility] Thin prep Papanicolaou smear with manual screening 5 5-15 [facility] [id number] 03-27-2023 SARS-CoV-2 (COVID-19) RNA PAMELA+probe Ql (Unsp spec) Negative Normal Negative [facility] [place] Comment on above: Performed By: #### R BCP #### [address] [address] SARS-CoV-2 (COVID-19) RNA PAMELA+probe Ql (Unsp spec) Normal [facility] ([place] Comment on above: Result Comment: Nega tive results do not preclude SARS-CoV-2 infection and should not be used as the sole basis for patient management decisions. Negative results must be combined with clinical observations, patient history, and epidemiological information. There is a risk of false negative values resulting from improperly collected, transported, or handled specimens. There is a risk of false negative values due to the presence of sequence variants in the pathogen targets of the assay, procedural errors, amplification inhibitors in specimens, or inadequate numbers of organisms for amplification. CINTHIA SARS-CoV-2 Assay is a Real-Time reverse-transcriptase polymerase chain reaction (RT-PCR) based qualitative in vitro diagnostic test intended for the qualitative detection of nucleic acid from the SARS-CoV-2 in nasopharyngeal swab specimens collected from individuals suspected of COVID-19 by their healthcare provider. Testing is limited to laboratories certified under the Clinical Laboratory Improvement Amendments of 1988 (CLIA), 42 U.S.C. ?263a, to perform moderate and high complexity tests. COVID-19 Int Performed By: #### R BCP #### [address] [address] .Auto Diffon 03-26-2023 Basophil, Absolute 0.1 10 3/mcL Normal 0.0-0.2 [facility] ([place]) Comment on above: Performed By: #### O CC #### [address] [address] Basophils/100 WBC (Bld) 1.3 % Normal 0.0-2.5 [facility] ([place]) Comment on above: Performed By: #### O CC #### [address] [address] Eosinophil, Absolute 0.6 10 3/mcL High 0.0-0.4 [facility] ([place]) Comment on above: Performed By: #### O CC #### [address] [address] Eosinophils/100 WBC (Bld) 6.5 % Normal 0.0-7.0 [facility] ([place] Comment on above: Performed By: #### O CC #### [address] [address] Lymphocyte, Absolute 1.9 10 3/mcL Normal 0.8-3.9 [facility] ([place] Comment on above: Performed By: #### O CC #### [address] [address] Lymphocytes/100 WBC (Bld) 20.6 % Normal 10.0-50.0 [facility] ([place] Comment on above: Performed By: #### O CC #### [address] [address] Monocyte, Absolute 1.2 10 3/mcL High 0.2-1.0 [facility] ([place] Comment on above: Performed By: #### O CC #### [address] [address] Monocytes/100 WBC (Bld) 13.7 % High 1.7-13.0 [facility] ([place]) Comment on above: Performed By: #### O CC #### [address] [address] Neutrophils/100 WBC (Bld) 57.9 % Normal 37.0-80.0 [facility] ([place] Comment on above: Performed By: #### O CC #### [address] [address] .GFRon 03-26-2023 GFR 76 ml/min/1.73sqm Normal [facility] ([place] Comment on above: Result Comment: GFR Population mean for , Non- Americans Ages 20-29 = 116 mL/min/1.73 sq.m. Ages 30-39 = 107 mL/min/1.73 sq.m. Ages 40-49 = 99 mL/min/1.73 sq.m. Ages 50-59 = 93 mL/min/1.73 sq.m. Ages 60-69 = 85 mL/min/1.73 sq.m. Ages 70+ = 75 mL/min/1.73 sq.m. Chronic Kidney Disease: Less than 60 mL/min/1.73 square meters End Stage Renal Disease: Less than 15 mL/min/1.73 square meters Performed By: #### F ES, #### [address] [address] GFR Non- 63 ml/min/1.73sqm Normal [facility] ([place] Comment on above: Result Comment: GFR Population mean for , Non- Americans Ages 20-29 = 116 mL/min/1.73 sq.m. Ages 30-39 = 107 mL/min/1.73 sq.m. Ages 40-49 = 99 mL/min/1.73 sq.m. Ages 50-59 = 93 mL/min/1.73 sq.m. Ages 60-69 = 85 mL/min/1.73 sq.m. Ages 70+ = 75 mL/min/1.73 sq.m. Chronic Kidney Disease: Less than 60 mL/min/1.73 square meters End Stage Renal Disease: Less than 15 mL/min/1.73 square meters Performed By: #### F ES, #### [address] [address] .NEUABSon 03-26-2023 Neutrophil, Absolute 5.3 10 3/mcL Normal 2.9-6.2 [facility] ([place]) Comment on above: Performed By: #### O CC #### [address] [address] BMPon 03-26-2023 BUN/Creatinine Ratio 8 ratio Normal 7-27 [facility] ([place] Comment on above: Performed By: #### O CC #### [address] [address] Calcium [Mass/Vol] 8.0 mg/dL Low 8.4-10.2 [facility] ([place]) Comment on above: Performed By: #### O CC #### [address] [address] Chloride [Moles/Vol] 108 mmol/L High 98-107 [facility] ([place] Comment on above: Performed By: #### O CC #### [address] [address] CO2 [Moles/Vol] 26 mmol/L Normal 23-31 [facility] ([place] Comment on above: Performed By: #### O CC #### [address] [address] Creatinine [Mass/Vol] 1.16 mg/dL Normal 0.70-1.30 [facility] ([place]) Comment on above: Performed By: #### O CC #### [address] [address] Electrolyte Balance 9.0 mEq/L Normal 4.0-15.0 [facility] ([place]) Comment on above: Performed By: #### O CC #### [address] [address] Glucose [Mass/Vol] 82 mg/dL Normal 80-115 [facility] ([place]) Comment on above: Performed By: #### O CC #### [address] [address] Potassium [Moles/Vol] 3.8 mmol/L Normal 3.5-5.1 [facility] ([place]) Comment on above: Performed By: #### O CC #### [address] [address] Sodium [Moles/Vol] 143 mmol/L Normal 136-145 [facility] ([place]) Comment on above: Performed By: #### O CC #### [address] [address] Urea nitrogen [Mass/Vol] 9 mg/dL Normal 7-18 [facility] ([place] Comment on above: Performed By: #### O CC #### [address] [address] CBCon 03-26-2023 Erythrocyte distribution width (RBC) [Ratio] 17.2 % High 11.5-14.5 [facility] ([place] Comment on above: Performed By: #### O CC #### [address] [address] Hematocrit (Bld) [Volume fraction] 29.1 % Low 42.0-52.0 [facility] ([place] Comment on above: Performed By: #### O CC #### [address] [address] Hgb 9.6 G/dL Low 14.0-18.0 [facility] ([place] Comment on above: Performed By: #### O CC #### [address] [address] MCH (RBC) [Entitic mass] 26.2 pg Low 27.0-31.2 [facility] ([place] Comment on above: Performed By: #### O CC #### [address] [address] MCHC 32.8 G/dL Normal 31.8-35.4 [facility] ([place] Comment on above: Performed By: #### O CC #### [address] [address] MCV (RBC) [Entitic vol] 79.9 fL Low 80.0-94.0 [facility] ([place]) Comment on above: Performed By: #### O CC #### [address] [address] Platelet 275 10 3/mcL Normal 130-400 [facility] ([place] Comment on above: Performed By: #### O CC #### [address] [address] Platelet mean volume (Bld) [Entitic vol] 7.6 fL Normal 7.4-10.4 [facility] ([place] Comment on above: Performed By: #### O CC #### [address] [address] RBC 3.65 10 6/mcL Low 4.04-6.13 [facility] ([place] Comment on above: Performed By: #### O CC #### [address] [address] WBC 9.1 10 3/mcL Normal 4.6-10.8 [facility] ([place] Comment on above: Performed By: #### O CC #### [address] [address] MGon 03-26-2023 Magnesium [Mass/Vol] 2.1 mg/dL Normal 1.8-2.4 [facility] ([place]) Comment on above: Performed By: #### F ES, HH #### [address] [address] .Auto Diffon 03-25-2023 Basophil, Absolute 0.1 10 3/mcL Normal 0.0-0.2 [facility] ([place] Comment on above: Performed By: #### R BCP #### [address] [address] Basophils/100 WBC (Bld) 1.2 % Normal 0.0-2.5 [facility] ([place] Comment on above: Performed By: #### R BCP #### [address] [address] Eosinophil, Absolute 0.5 10 3/mcL High 0.0-0.4 [facility] ([place] Comment on above: Performed By: #### R BCP #### [address] [address] Eosinophils/100 WBC (Bld) 5.8 % Normal 0.0-7.0 [facility] ([place] Comment on above: Performed By: #### R BCP #### [address] [address] Lymphocyte, Absolute 2.0 10 3/mcL Normal 0.8-3.9 [facility] ([place] Comment on above: Performed By: #### R BCP #### [address] [place] [address] Lymphocytes/100 WBC (Bld) 20.9 % Normal 10.0-50.0 [facility] ([place] Comment on above: Performed By: #### R BCP #### [address] [address] Monocyte, Absolute 1.3 10 3/mcL High 0.2-1.0 [facility] ([place] Comment on above: Performed By: #### R BCP #### [address] [address] Monocytes/100 WBC (Bld) 13.7 % High 1.7-13.0 [facility] ([place] Comment on above: Performed By: #### R BCP #### [address] [address] Neutrophils/100 WBC (Bld) 58.4 % Normal 37.0-80.0 [facility] ([place] Comment on above: Performed By: #### R BCP #### [address] [address] .GFRon 03-25-2023 GFR 72 ml/min/1.73sqm Normal [facility] ([place] Comment on above: Result Comment: GFR Population mean for , Non- Americans Ages 20-29 = 116 mL/min/1.73 sq.m. Ages 30-39 = 107 mL/min/1.73 sq.m. Ages 40-49 = 99 mL/min/1.73 sq.m. Ages 50-59 = 93 mL/min/1.73 sq.m. Ages 60-69 = 85 mL/min/1.73 sq.m. Ages 70+ = 75 mL/min/1.73 sq.m. Chronic Kidney Disease: Less than 60 mL/min/1.73 square meters End Stage Renal Disease: Less than 15 mL/min/1.73 square meters Performed By: #### R BCP #### [address] [address] GFR Non- 59 ml/min/1.73sqm Normal [facility] ([place] Comment on above: Result Comment: GFR Population mean for , Non- Americans Ages 20-29 = 116 mL/min/1.73 sq.m. Ages 30-39 = 107 mL/min/1.73 sq.m. Ages 40-49 = 99 mL/min/1.73 sq.m. Ages 50-59 = 93 mL/min/1.73 sq.m. Ages 60-69 = 85 mL/min/1.73 sq.m. Ages 70+ = 75 mL/min/1.73 sq.m. Chronic Kidney Disease: Less than 60 mL/min/1.73 square meters End Stage Renal Disease: Less than 15 mL/min/1.73 square meters Performed By: #### R BCP #### [address] [address] .NEUABSon 03-25-2023 Neutrophil, Absolute 5.5 10 3/mcL Normal 2.9-6.2 [facility] ([place]) Comment on above: Performed By: #### R BCP #### [address] [address] BMPon 03-25-2023 BUN/Creatinine Ratio 9 ratio Normal 7-27 [facility] ([place] Comment on above: Performed By: #### R BCP #### [address] [address] Calcium [Mass/Vol] 7.8 mg/dL Low 8.4-10.2 [facility] ([place]) Comment on above: Performed By: #### R BCP #### [address] [address] Chloride [Moles/Vol] 108 mmol/L High 98-107 [facility] ([place] Comment on above: Performed By: #### R BCP #### [address] [address] CO2 [Moles/Vol] 28 mmol/L Normal 23-31 [facility] ([place] Comment on above: Performed By: #### R BCP #### [address] [address] Creatinine [Mass/Vol] 1.22 mg/dL Normal 0.70-1.30 [facility] ([place]) Comment on above: Performed By: #### R BCP #### [address] [address] Electrolyte Balance 8.0 mEq/L Normal 4.0-15.0 [facility] ([place] Comment on above: Performed By: #### R BCP #### [address] [address] Glucose [Mass/Vol] 82 mg/dL Normal 80-115 [facility] ([place] Comment on above: Performed By: #### R BCP #### [address] [address] Potassium [Moles/Vol] 3.6 mmol/L Normal 3.5-5.1 [facility] ([place]) Comment on above: Performed By: #### R BCP #### [address] [address] Sodium [Moles/Vol] 144 mmol/L Normal 136-145 [facility] ([place] Comment on above: Performed By: #### R BCP #### [address] [address] Urea nitrogen [Mass/Vol] 11 mg/dL Normal 7-18 [facility] ([place] Comment on above: Performed By: #### R BCP #### [address] [address] CBCon 03-25-2023 Erythrocyte distribution width (RBC) [Ratio] 17.3 % High 11.5-14.5 [facility] ([place] Comment on above: Performed By: #### R BCP #### [address] [address] Hematocrit (Bld) [Volume fraction] 28.5 % Low 42.0-52.0 [facility] ([place] Comment on above: Performed By: #### R BCP #### [address] [address] Hgb 9.2 G/dL Low 14.0-18.0 [facility] ([place] Comment on above: Performed By: #### R BCP #### [address] [address] MCH (RBC) [Entitic mass] 25.9 pg Low 27.0-31.2 [facility] ([place] Comment on above: Performed By: #### R BCP #### [address] [address] MCHC 32.2 G/dL Normal 31.8-35.4 [facility] ([place] Comment on above: Performed By: #### R BCP #### [address] [address] MCV (RBC) [Entitic vol] 80.5 fL Normal 80.0-94.0 [facility] ([place]) Comment on above: Performed By: #### R BCP #### [address] [address] Platelet 267 10 3/mcL Normal 130-400 [facility] ([place] Comment on above: Performed By: #### R BCP #### [address] [address] Platelet mean volume (Bld) [Entitic vol] 7.9 fL Normal 7.4-10.4 [facility] ([place] Comment on above: Performed By: #### R BCP #### [address] [address] RBC 3.54 10 6/mcL Low 4.04-6.13 [facility] ([place] Comment on above: Performed By: #### R BCP #### [address] [address] WBC 9.4 10 3/mcL Normal 4.6-10.8 [facility] ([place] Comment on above: Performed By: #### R BCP #### [address] [address] XR CHEST 2 VIEWSon XR CHEST 2 VIEWS ORIGINAL EXAMINATION: TWO XRAY VIEWS OF THE CHEST03/25/2023 2:16 pm COMPARISON: 03/22/2023 HISTORY: ORDERING SYSTEM PROVIDED HISTORY: Reason for Exam: hypoxia FINDINGS: Stable heart and mediastinum with postop changes. No vascular congestion or other signs of pulmonary edema. No consolidation, pleural effusion or pneumothorax. No acute skeletal findings. IMPRESSION: No acute cardiopulmonary process. Interpreted by: Zo Stevens MD Preliminary Report By: Zo Stevens MD Electronically signed By Zo Stevens MD Dictated Date: 03/25/2023 2:23:53 PM Prelim Date: 03/25/2023 2:24:28 PM Sign Date: 03/25/2023 2:24:28 PM Ordering Provider: KYLIE Robles [facility] ([place] .Auto Diffon 03-24-2023 Basophil, Absolute 0.1 10 3/mcL Normal 0.0-0.2 [facility] ([place]) Comment on above: Performed By: #### F ES, #### [address] [address] Basophils/100 WBC (Bld) 1.0 % Normal 0.0-2.5 [facility] ([place]) Comment on above: Performed By: #### F ES, #### [address] [address] Eosinophil, Absolute 0.5 10 3/mcL High 0.0-0.4 [facility] ([place] Comment on above: Performed By: #### F ES, #### [address] [address] Eosinophils/100 WBC (Bld) 4.5 % Normal 0.0-7.0 [facility] ([place] Comment on above: Performed By: #### F ES, #### [address] [address] Lymphocyte, Absolute 1.9 10 3/mcL Normal 0.8-3.9 [facility] ([place] Comment on above: Performed By: #### F ES, #### [address] [address] Lymphocytes/100 WBC (Bld) 18.0 % Normal 10.0-50.0 [facility] ([place] Comment on above: Performed By: #### F ES, #### [address] [address] Monocyte, Absolute 1.2 10 3/mcL High 0.2-1.0 [facility] ([place] Comment on above: Performed By: #### F ES, HH #### [address] [address] Monocytes/100 WBC (Bld) 10.9 % Normal 1.7-13.0 [facility] ([place]) Comment on above: Performed By: #### F ES, HH #### [address] [address] Neutrophils/100 WBC (Bld) 65.6 % Normal 37.0-80.0 [facility] ([place] Comment on above: Performed By: #### F ES, #### [address] [address] .GFRon 03-24-2023 GFR 70 ml/min/1.73sqm Normal [facility] ([place]) Comment on above: Result Comment: GFR Population mean for , Non- Americans Ages 20-29 = 116 mL/min/1.73 sq.m. Ages 30-39 = 107 mL/min/1.73 sq.m. Ages 40-49 = 99 mL/min/1.73 sq.m. Ages 50-59 = 93 mL/min/1.73 sq.m. Ages 60-69 = 85 mL/min/1.73 sq.m. Ages 70+ = 75 mL/min/1.73 sq.m. Chronic Kidney Disease: Less than 60 mL/min/1.73 square meters End Stage Renal Disease: Less than 15 mL/min/1.73 square meters Performed By: #### F ES, #### [address] [address] GFR Non- 58 ml/min/1.73sqm Normal [facility] ([place] Comment on above: Result Comment: GFR Population mean for , Non- Americans Ages 20-29 = 116 mL/min/1.73 sq.m. Ages 30-39 = 107 mL/min/1.73 sq.m. Ages 40-49 = 99 mL/min/1.73 sq.m. Ages 50-59 = 93 mL/min/1.73 sq.m. Ages 60-69 = 85 mL/min/1.73 sq.m. Ages 70+ = 75 mL/min/1.73 sq.m. Chronic Kidney Disease: Less than 60 mL/min/1.73 square meters End Stage Renal Disease: Less than 15 mL/min/1.73 square meters Performed By: #### F ES, #### [address] [address] .NEUABSon 03-24-2023 Neutrophil, Absolute 7.1 10 3/mcL High 2.9-6.2 [facility] ([place] Comment on above: Performed By: #### F ES, #### [address] [address] BMPon 03-24-2023 BUN/Creatinine Ratio 10 ratio Normal 7-27 [facility] ([place] Comment on above: Performed By: #### F ES, #### [address] [address] Calcium [Mass/Vol] 8.0 mg/dL Low 8.4-10.2 [facility] ([place] Comment on above: Performed By: #### F ES, #### [address] [address] Chloride [Moles/Vol] 107 mmol/L Normal 98-107 [facility] ([place] Comment on above: Performed By: #### F ES, HH #### [address] [address] CO2 [Moles/Vol] 28 mmol/L Normal 23-31 [facility] ([place] Comment on above: Performed By: #### F ES, #### [address] [address] Creatinine [Mass/Vol] 1.25 mg/dL Normal 0.70-1.30 [facility] ([place]) Comment on above: Performed By: #### F ES, #### [address] [address] Electrolyte Balance 9.0 mEq/L Normal 4.0-15.0 [facility] ([place] Comment on above: Performed By: #### F ES, HH #### [address] [address] Glucose [Mass/Vol] 78 mg/dL Low 80-115 [facility] ([place] Comment on above: Performed By: #### F ES, HH #### [address] [address] Potassium [Moles/Vol] 3.8 mmol/L Normal 3.5-5.1 [facility] ([place]) Comment on above: Performed By: #### F ES, HH #### [address] [address] Sodium [Moles/Vol] 144 mmol/L Normal 136-145 [facility] ([place] Comment on above: Performed By: #### F ES, #### [address] [address] Urea nitrogen [Mass/Vol] 12 mg/dL Normal 7-18 [facility] ([place] Comment on above: Performed By: #### F ES, #### [address] [address] CBCon 03-24-2023 Erythrocyte distribution width (RBC) [Ratio] 17.0 % High 11.5-14.5 [facility] [place] Comment on above: Performed By: #### F ES, #### [address] [address] Hematocrit (Bld) [Volume fraction] 27.1 % Low 42.0-52.0 [facility] [place] Comment on above: Performed By: #### F ES, #### [address] [address] Hgb 9.0 G/dL Low 14.0-18.0 [facility] ([place] Comment on above: Performed By: #### F ES, #### [address] [address] MCH (RBC) [Entitic mass] 26.3 pg Low 27.0-31.2 [facility] ([place] Comment on above: Performed By: #### F ES, HH #### [address] [address] MCHC 33.0 G/dL Normal 31.8-35.4 [facility] ([place] Comment on above: Performed By: #### F ES, HH #### [address] [address] MCV (RBC) [Entitic vol] 79.7 fL Low 80.0-94.0 [facility] ([place] Comment on above: Performed By: #### F ES, #### [address] [address] Platelet 296 10 3/mcL Normal 130-400 [facility] [place] Comment on above: Performed By: #### F ES, #### [address] [address] Platelet mean volume (Bld) [Entitic vol] 7.8 fL Normal 7.4-10.4 [facility] [place] Comment on above: Performed By: #### F ES, #### [address] [address] RBC 3.40 10 6/mcL Low 4.04-6.13 [facility] ([place] Comment on above: Performed By: #### F ES, HH #### [address] [address] WBC 10.8 10 3/mcL Normal 4.6-10.8 [facility] ([place] Comment on above: Performed By: #### F ES, #### [address] [address] HHon 03-24-2023 Hematocrit (Bld) [Volume fraction] 24.7 % Low 42.0-52.0 [facility] ([place] Comment on above: Performed By: #### R BCP #### [address] [address] Hgb 8.3 G/dL Low 14.0-18.0 [facility] ([place] Comment on above: Performed By: #### R BCP #### [address] [address] OCC (LAB)on 03-24-2023 Occult Blood Fecal Positive Abnormal Negative [facility] ([place]) Comment on above: Order Comment: #1 Performed By: #### O CC #### [address] [address] .GFRon 03-23-2023 GFR 56 ml/min/1.73sqm Normal [facility] ([place] Comment on above: Result Comment: GFR Population mean for , Non- Americans Ages 20-29 = 116 mL/min/1.73 sq.m. Ages 30-39 = 107 mL/min/1.73 sq.m. Ages 40-49 = 99 mL/min/1.73 sq.m. Ages 50-59 = 93 mL/min/1.73 sq.m. Ages 60-69 = 85 mL/min/1.73 sq.m. Ages 70+ = 75 mL/min/1.73 sq.m. Chronic Kidney Disease: Less than 60 mL/min/1.73 square meters End Stage Renal Disease: Less than 15 mL/min/1.73 square meters Performed By: #### F ES, HH #### [address] [address] GFR Non- 46 ml/min/1.73sqm Normal [facility] ([place] Comment on above: Result Comment: GFR Population mean for , Non- Americans Ages 20-29 = 116 mL/min/1.73 sq.m. Ages 30-39 = 107 mL/min/1.73 sq.m. Ages 40-49 = 99 mL/min/1.73 sq.m. Ages 50-59 = 93 mL/min/1.73 sq.m. Ages 60-69 = 85 mL/min/1.73 sq.m. Ages 70+ = 75 mL/min/1.73 sq.m. Chronic Kidney Disease: Less than 60 mL/min/1.73 square meters End Stage Renal Disease: Less than 15 mL/min/1.73 square meters Performed By: #### F LUIS FELIPE, #### [address] [address] BMPon 03-23-2023 BUN/Creatinine Ratio 12 ratio Normal 7-27 [facility] ([place] Comment on above: Performed By: #### F LUIS FELIPE, HH #### [address] [address] Calcium [Mass/Vol] 8.1 mg/dL Low 8.4-10.2 [facility] ([place] Comment on above: Performed By: #### F LUIS FELIPE, HH #### [address] [address] Chloride [Moles/Vol] 107 mmol/L Normal 98-107 [facility] ([place] Comment on above: Performed By: #### F ES, #### [address] [address] CO2 [Moles/Vol] 27 mmol/L Normal 23-31 [facility] ([place] Comment on above: Performed By: #### F ES, #### [address] [address] Creatinine [Mass/Vol] 1.51 mg/dL High 0.70-1.30 [facility] ([place] Comment on above: Performed By: #### F ES, HH #### [address] [address] Electrolyte Balance 6.0 mEq/L Normal 4.0-15.0 [facility] ([place] Comment on above: Performed By: #### F ES, HH #### [address] [address] Glucose [Mass/Vol] 85 mg/dL Normal 80-115 [facility] ([place] Comment on above: Performed By: #### F ES, HH #### [address] [address] Potassium [Moles/Vol] 3.9 mmol/L Normal 3.5-5.1 [facility] ([place]) Comment on above: Performed By: #### F ES, #### [address] [address] Sodium [Moles/Vol] 140 mmol/L Normal 136-145 [facility] ([place]) Comment on above: Performed By: #### F ES, #### [address] [address] Urea nitrogen [Mass/Vol] 18 mg/dL Normal 7-18 [facility] ([place]) Comment on above: Performed By: #### F ES, #### [address] [address] FESon 03-23-2023 Iron [Mass/Vol] 58 ug/dL Low 65-175 [facility] ([place]) Comment on above: Performed By: #### F ES, #### [address] [address] Iron Sat 15 % Normal [facility] ([place]) Comment on above: Performed By: #### F ES, #### [address] [address] TIBC 393 mcg/dL Normal 250-450 [facility] ([place]) Comment on above: Performed By: #### F ES, #### [address] [address] Gel ABOon 03-23-2023 ABO/Rh Interp Positive Invalid Interpretation Code [facility] ([place]) Comment on above: Performed By: #### O CC #### [address] [address] Gel ABSon 03-23-2023 Antibody Screen Gel Negative Normal [facility] ([place]) Comment on above: Performed By: #### O CC #### [address] [address] HHon 03-23-2023 Hematocrit (Bld) [Volume fraction] 24.1 % Low 42.0-52.0 [facility] ([place]) Comment on above: Performed By: #### R BCP #### [address] [address] Hgb 7.8 G/dL Low 14.0-18.0 [facility] ([place]) Comment on above: Performed By: #### R BCP #### [address] [address] Hematocrit (Bld) [Volume fraction] 25.8 % Low 42.0-52.0 [facility] ([place]) Comment on above: Performed By: #### R BCP #### [address] [address] Hgb 8.5 G/dL Low 14.0-18.0 [facility] ([place]) Comment on above: Performed By: #### R BCP #### [address] [address] Hematocrit (Bld) [Volume fraction] 25.1 % Low 42.0-52.0 [facility] ([place]) Comment on above: Performed By: #### F ES, #### [address] [address] Hgb 8.3 G/dL Low 14.0-18.0 [facility] ([place]) Comment on above: Performed By: #### F ES, HH #### [address] [address] Hematocrit (Bld) [Volume fraction] 22.1 % Low 42.0-52.0 [facility] ([place]) Comment on above: Performed By: #### H H #### [address] [address] Hgb 7.1 G/dL Low 14.0-18.0 [facility] ([place]) Comment on above: Performed By: #### H H #### [address] [address] MGon 03-23-2023 Magnesium [Mass/Vol] 2.3 mg/dL Normal 1.8-2.4 [facility] ([place]) Comment on above: Performed By: #### F ES, #### [address] [address] RBC (Product)on 03-23-2023 RBC Product Ready RBC Ready for Pickup Normal [facility] ([place]) Comment on above: Performed By: #### R BCP #### [address] [address] RBC Product Ready RBC Ready for Pickup Normal [facility] ([place]) Comment on above: Performed By: #### R BCP #### [address] [address] XR SPINE THORACIC 2 VIEWSon 03-23-2023 XR SPINE THORACIC 2 VIEWS ORIGINAL HISTORY: Pain, fall COMPARISON: No FINDINGS: There are no acute fractures or dislocations. Alignment of the thoracic spine is within normal limits. The individual vertebral bodies are intact. There is mild disc space narrowing, mainly in the midthoracic spine. IMPRESSION: Mild degenerative changes; no acute fracture. Interpreted by: Zenaida Shi MD Preliminary Report By: Zenaida Shi MD Electronically signed By Zenaida Shi MD Dictated Date: 03/23/2023 1:17:56 PM Prelim Date: 03/23/2023 1:18:39 PM Sign Date: 03/23/2023 1:18:39 PM Ordering Provider: LAURIE Robles [facility] ([place]) .Auto Diffon 03-22-2023 Basophil, Absolute 0.1 10 3/mcL Normal 0.0-0.2 [facility] ([place]) Comment on above: Performed By: #### R BCP #### [address] [address] Basophils/100 WBC (Bld) 1.1 % Normal 0.0-2.5 [facility] ([place]) Comment on above: Performed By: #### R BCP #### [address] [address] Eosinophil, Absolute 0.3 10 3/mcL Normal 0.0-0.4 [facility] ([place]) Comment on above: Performed By: #### R BCP #### [address] [address] Eosinophils/100 WBC (Bld) 2.8 % Normal 0.0-7.0 [facility] ([place]) Comment on above: Performed By: #### R BCP #### [address] [address] Lymphocyte, Absolute 1.7 10 3/mcL Normal 0.8-3.9 [facility] ([place]) Comment on above: Performed By: #### R BCP #### [address] [address] Lymphocytes/100 WBC (Bld) 16.8 % Normal 10.0-50.0 [facility] ([place]) Comment on above: Performed By: #### R BCP #### [address] [address] Monocyte, Absolute 1.1 10 3/mcL High 0.2-1.0 [facility] ([place]) Comment on above: Performed By: #### R BCP #### [address] [address] Monocytes/100 WBC (Bld) 10.7 % Normal 1.7-13.0 [facility] ([place]) Comment on above: Performed By: #### R BCP #### [address] [address] Neutrophils/100 WBC (Bld) 68.6 % Normal 37.0-80.0 [facility] ([place]) Comment on above: Performed By: #### R BCP #### [address] [address] .GFRon 03-22-2023 GFR 45 ml/min/1.73sqm Normal [facility] ([place]) Comment on above: Result Comment: GFR Population mean for , Non- Americans Ages 20-29 = 116 mL/min/1.73 sq.m. Ages 30-39 = 107 mL/min/1.73 sq.m. Ages 40-49 = 99 mL/min/1.73 sq.m. Ages 50-59 = 93 mL/min/1.73 sq.m. Ages 60-69 = 85 mL/min/1.73 sq.m. Ages 70+ = 75 mL/min/1.73 sq.m. Chronic Kidney Disease: Less than 60 mL/min/1.73 square meters End Stage Renal Disease: Less than 15 mL/min/1.73 square meters Performed By: #### R BCP #### [address] [address] GFR Non- 37 ml/min/1.73sqm Normal [facility] ([place]) Comment on above: Result Comment: GFR Population mean for , Non- Americans Ages 20-29 = 116 mL/min/1.73 sq.m. Ages 30-39 = 107 mL/min/1.73 sq.m. Ages 40-49 = 99 mL/min/1.73 sq.m. Ages 50-59 = 93 mL/min/1.73 sq.m. Ages 60-69 = 85 mL/min/1.73 sq.m. Ages 70+ = 75 mL/min/1.73 sq.m. Chronic Kidney Disease: Less than 60 mL/min/1.73 square meters End Stage Renal Disease: Less than 15 mL/min/1.73 square meters Performed By: #### R BCP #### [address] [address] .MDWon 03-22-2023 Monocyte Distribution Width 15.39 Normal 0.00-20.00 [facility] ([place]) Comment on above: Result Comment: For ED adult patients suspected of sepsis, MDW<=20.0 does not rule out sepsis or risk of sepsis Performed By: #### R BCP #### [address] [address] .NEUABSon 03-22-2023 Neutrophil, Absolute 6.9 10 3/mcL High 2.9-6.2 [facility] ([place]) Comment on above: Performed By: #### R BCP #### [address] [address] BMPon 03-22-2023 BUN/Creatinine Ratio 10 ratio Normal 7-27 [facility] ([place]) Comment on above: Performed By: #### R BCP #### [address] [address] Calcium [Mass/Vol] 8.4 mg/dL Normal 8.4-10.2 [facility] ([place]) Comment on above: Performed By: #### R BCP #### [address] [address] Chloride [Moles/Vol] 105 mmol/L Normal 98-107 [facility] ([place]) Comment on above: Performed By: #### R BCP #### [address] [address] CO2 [Moles/Vol] 23 mmol/L Normal 23-31 [facility] ([place]) Comment on above: Performed By: #### R BCP #### [address] [address] Creatinine [Mass/Vol] 1.82 mg/dL High 0.70-1.30 [facility] ([place]) Comment on above: Performed By: #### R BCP #### [address] [address] Electrolyte Balance 13.0 mEq/L Normal 4.0-15.0 [facility] ([place]) Comment on above: Performed By: #### R BCP #### [address] [address] Glucose [Mass/Vol] 92 mg/dL Normal 80-115 [facility] ([place]) Comment on above: Performed By: #### R BCP #### [address] [address] Potassium [Moles/Vol] 4.6 mmol/L Normal 3.5-5.1 [facility] ([place]) Comment on above: Performed By: #### R BCP #### [address] [address] Sodium [Moles/Vol] 141 mmol/L Normal 136-145 [facility] ([place]) Comment on above: Performed By: #### R BCP #### [address] [address] Urea nitrogen [Mass/Vol] 18 mg/dL Normal 7-18 [facility] ([place]) Comment on above: Performed By: #### R BCP #### [address] [address] CBCon 03-22-2023 Erythrocyte distribution width (RBC) [Ratio] 17.3 % High 11.5-14.5 [facility] ([place]) Comment on above: Performed By: #### R BCP #### [address] [address] Hematocrit (Bld) [Volume fraction] 20.7 % Low 42.0-52.0 [facility] ([place]) Comment on above: Performed By: #### R BCP #### [address] [address] Hgb 6.5 G/dL Critically abnormal 14.0-18.0 [facility] ([place]) Comment on above: Performed By: #### R BCP #### [address] [address] MCH (RBC) [Entitic mass] 24.3 pg Low 27.0-31.2 [facility] ([place]) Comment on above: Performed By: #### R BCP #### [address] [address] MCHC 31.1 G/dL Low 31.8-35.4 [facility] ([place]) Comment on above: Performed By: #### R BCP #### [address] [address] MCV (RBC) [Entitic vol] 77.9 fL Low 80.0-94.0 [facility] ([place]) Comment on above: Performed By: #### R BCP #### [address] [address] Platelet 344 10 3/mcL Normal 130-400 [facility] ([place]) Comment on above: Performed By: #### R BCP #### [address] [address] Platelet mean volume (Bld) [Entitic vol] 7.2 fL Low 7.4-10.4 [facility] ([place]) Comment on above: Performed By: #### R BCP #### [address] [place] [address] [place], [place] [address] RBC 2.66 10 6/mcL Low 4.04-6.13 [facility] ([place]) Comment on above: Performed By: #### R BCP #### [address] [place] [id number] [place], [place] [address] WBC 10.1 10 3/mcL Normal 4.6-10.8 [facility] ([place]) Comment on above: Performed By: #### R BCP #### Son[address] [address] [address] HEAD OR BRAIN W/O CONTRAS Ton 03-22-2023 CT HEAD OR BRAIN W/O CONTRAST ORIGINAL EXAMINATION: CT OF THE HEAD WITHOUT CONTRAST03/22/2023 9:18 pm TECHNIQUE: CT of the head was performed without the administration of intravenous contrast. Automated exposure control, iterative reconstruction, and/or weight based adjustment of the mA/kV was utilized to reduce the radiation dose to as low as reasonably achievable. COMPARISON: CT head previous day HISTORY: ORDERING SYSTEM PROVIDED HISTORY: Reason for Exam: Pt fell on thinners, no loc, states he did not hit his head. Hx of stroke/aneurysm. pain; trauma patient FINDINGS: There is no intracranial hemorrhage, mass, mass effect or abnormal extra-axial fluid collection. There is no CT evidence for acute large territorial infarction. Redemonstration of significant encephalomalacia of the left cerebral hemisphere with ex vacuo dilation, similar to prior exam. The density in the larger dural venous sinuses is grossly normal. Diffuse atrophy is similar to prior exam. Atherosclerotic calcifications are present in the cavernous carotid and vertebral arteries. There are periventricular/subcor tical white matter hypodensities, nonspecific but statistically represent chronic microvascular angiopathy. The skull base and calvarium demonstrate no acute abnormality. The included paranasal sinuses and mastoid air cells are predominantly clear. IMPRESSION: 1. No acute intracranial hemorrhage or mass effect. 2. Remote infarct. Interpreted by: Eulogio Rodriguez DO Preliminary Report By: Eulogio Rodriguez DO Electronically signed By Eulogio Rodriguez DO Dictated Date: 03/22/2023 9:20:46 PM Prelim Date: 03/22/2023 9:24:30 PM Sign Date: 03/22/2023 9:24:30 PM Ordering Provider: MATTHEW Robles [facility] ([place]) XR CHEST 1 VIEWon 03-22-2023 XR CHEST 1 VIEW ORIGINAL EXAMINATION: ONE XRAY VIEW OF THE CHEST 03/22/2023 9:06 pm COMPARISON: 11/19/2022. HISTORY: ORDERING SYSTEM PROVIDED HISTORY: Reason for Exam: fall pain; trauma patient FINDINGS: Sternotomy changes are noted. Sternal wires are intact. Stable heart size. Atherosclerotic aorta. Mild bibasilar streaky opacities favoring subsegmental atelectasis. These have improved on the left since prior exam. No airspace consolidation. No florid congestion. No pneumothorax or pleural effusion is seen. There are no visible displaced fractures. Degenerative changes are present of the spine and glenohumeral joints left greater than right. IMPRESSION: 1. No evidence of acute cardiopulmonary process. Interpreted by: Eulogio Rodriguez DO Preliminary Report By: Eulogio Rodriguez DO Electronically signed By Eulogio Rodriguez DO Dictated Date: 03/22/2023 9:19:05 PM Prelim Date: 03/22/2023 9:20:32 PM Sign Date: 03/22/2023 9:20:32 PM Ordering Provider: MATTHEW Robles [facility] ([place]) XR HIP RIGHT W/PELVIS 4 VIEW Son 03-22-2023 XR HIP RIGHT W/PELVIS 4 VIEWS ORIGINAL EXAMINATION: ONE XRAY VIEW OF THE PELVIS AND TWO XRAY VIEWS RIGHT HIP 03/22/2023 9:27 pm COMPARISON: None. HISTORY: ORDERING SYSTEM PROVIDED HISTORY: Reason for Exam: fall. pain FINDINGS: No acute fracture or dislocation. Normal osseous mineralization. No visible aggressive osseous lesion. Suspected bone island of the intertrochanteric right femur. The pelvic ring and visible sacrum are intact. Moderate joint space narrowing of bilateral hips with subchondral sclerosis and osteophyte formation. There is irregularity of the superolateral aspect of the left femoral head with mild osseous flattening/subarticula r bone plate collapse, compatible with avascular necrosis. This abnormality measures on the order of 2.1 Cm transverse dimension. Cam type deformity of bilateral femoral head-neck junctions right greater than left. No significant degenerative changes are noted of the pubic symphysis. No significant degenerative changes are noted of the included sacroiliac joints. Mild degenerative changes at the lumbosacral junction. Mild diffuse atherosclerosis. IMPRESSION: 1. Findings compatible with avascular necrosis and suspicion for subchondral bone plate collapse of the left femoral head. This is an age indeterminate finding. 2. No additional acute fracture or dislocation. 3. Polyarticular degenerative changes above. Interpreted by: Eulogio Rodriguez DO Preliminary Report By: Eulogio Rodriguez DO Electronically signed By Eulogio Rodriguez DO Dictated Date: 03/22/2023 9:34:43 PM Prelim Date: 03/22/2023 9:38:00 PM Sign Date: 03/22/2023 9:38:00 PM Ordering Provider: MATTHEW AVALOS [facility] ([place]) CT HEAD OR BRAIN W/O CONTRAS Ton 03-21-2023 CT HEAD OR BRAIN W/O CONTRAST ORIGINAL EXAMINATION: CT OF THE HEAD WITHOUT CONTRAST03/21/2023 4:57 pm TECHNIQUE: CT of the head was performed without the administration of intravenous contrast. Automated exposure control, iterative reconstruction, and/or weight based adjustment of the mA/kV was utilized to reduce the radiation dose to as low as reasonably achievable. COMPARISON: None available for review.. HISTORY: ORDERING SYSTEM PROVIDED HISTORY: Reason for Exam: INJURY History of stroke 7 years ago FINDINGS: Motion/stairstep artifact noted on reconstructed images. There is no intracranial hemorrhage, mass effect or abnormal extra-axial fluid collection. There is no CT evidence for acute large territorial infarction. Widespread encephalomalacia of the left cerebral hemisphere. Associated ex vacuo dilation of the left lateral ventricle. Scattered supratentorial white matter hypodensities consistent with mild chronic microvascular angiopathy. The skull base and calvarium demonstrate no acute abnormality. The included paranasal sinuses and mastoid air cells are predominantly clear. IMPRESSION: No acute intracranial hemorrhage or other acute traumatic abnormality. I have personally reviewed the images of this examination and agree with the resident's findings and interpretation. Interpreted by: Eulogio Rodriguez DO Preliminary Report By: Lissa Godoy Electronically signed By Eulogio Rodriguez DO Dictated Date: 03/21/2023 4:59:56 PM Prelim Date: 03/21/2023 5:09:27 PM Sign Date: 03/21/2023 5:15:43 PM Ordering Provider: MARIANO HOPKINS [facility] ([place]) No Panel Informationon 03-12 [facility] SPIROMETRY WITH DILATOR IF O BSTRUCTEDon 03-12-2023 DLCO (ml/min/mmHg) 7.95 ml/min/mmHg [facility] DLCO/VA (ml/min/mmHg/L) 1.91 ml/min/mmHg/L [facility] WOU02-60% POST (L/S) 0.63 L/S [facility] WTG95-79% PRE (L/S) 0.62 L/S [facility] FEV1 PRE (L) 1.78 L [facility] FEV1/FVC POST (%) 59 % [facility] FEV1/FVC PRE (%) 60 % [facility] FEV1_POST (L) 1.78 L [facility] FVC POST (L) 3.00 L [facility] FVC PRE (L) 2.95 L [facility] PEF POST (L/S) 3.89 L/S [facility] PEF PRE (L/S) 4.01 L/S [facility] VA (L) 4.17 L [facility] XR Chest PA and Lateralon IMPRESSION: Prominence of the bilateral pulmonary markings. Food Service Utility Worker: PSCVarinder Transcribe Date/Time: Dec 05 2022 11:30A Dictated by : BETO CONTRERAS MD This examination was interpreted and the report reviewed and electronically signed by: BETO CONTRERAS MD on Dec 05 2022 11:32AM [facility] DIVISION OF RADIOLOGY * * *Final Report* * * DATE OF EXAM: Dec 04 2022 5:00PM WOX [id number] - XR CHEST 2V FRONTAL/LAT / PROCEDURE REASON: Acute cough * * * * Physician Interpretation * * * * EXAMINATION: CHEST RADIOGRAPH (2 VIEW FRONTAL & LATERAL) CLINICAL HISTORY: Acute cough MQ: XC2_6 EXAM DATE/TIME: 12/04/2022 5:00 PM COMPARISON: Chest x-ray on 07/16/2017 RESULT: Lines, tubes, and devices: None. Lungs and pleura: There is prominence of the bilateral pulmonary markings. No consolidation. No lung mass. No pleural effusion. No pneumothorax. Cardiomediastinal silhouette: Stable cardiomediastinal silhouette. Bones and soft tissues: Status post median sternotomy and probably CABG. There are degenerative changes in the spine. One vascular stent is noted superior to the aortic arch level. DIVISION OF RADIOLOGY Provider, [facility] - 12/05/2022 * * *Final Report* * * DATE OF EXAM: Dec 04 2022 5:00PM WOX [id number] - XR CHEST 2V FRONTAL/LAT / PROCEDURE REASON: Acute cough * * * * Physician Interpretation * * * * EXAMINATION: CHEST RADIOGRAPH (2 VIEW FRONTAL & LATERAL) CLINICAL HISTORY: Acute cough MQ: XC2_6 EXAM DATE/TIME: 12/04/2022 5:00 PM COMPARISON: Chest x-ray on 07/16/2017 RESULT: Lines, tubes, and devices: None. Lungs and pleura: There is prominence of the bilateral pulmonary markings. No consolidation. No lung mass. No pleural effusion. No pneumothorax. Cardiomediastinal silhouette: Stable cardiomediastinal silhouette. Bones and soft tissues: Status post median sternotomy and probably CABG. There are degenerative changes in the spine. One vascular stent is noted superior to the aortic arch level. IMPRESSION IMPRESSION: Prominence of the bilateral pulmonary markings. Food Service Utility Worker: JIN Transcribe Date/Time: Dec 05 2022 11:30A Dictated by : BETO CONTRERAS MD This examination was interpreted and the report reviewed and electronically signed by: BETO CONTRERAS MD on Dec 05 2022 11:32AM EST [facility] XR Chest PA and LateralOrder ed By: [facility] Provider on 12-05-2022 [facility] XR Chest PA and Lateralon Radiology [facility]narrative[facility] .Auto Diffon 11-19-2022 Basophil, Absolute 0.1 10 3/mcL Normal 0.0-0.2 [facility] ([place]) Comment on above: Performed By: #### M G, CBC, ADIFF, CMP, GFR, ANEU #### [address] [address] Basophils/100 WBC (Bld) 0.6 % Normal 0.0-2.5 A [facility] ([place]) Comment on above: Performed By: #### M G, CBC, ADIFF, CMP, GFR, ANEU #### [address] [address] Eosinophil, Absolute 0.5 10 3/mcL High 0.0-0.4 [facility] ([place]) Comment on above: Performed By: #### M G, CBC, ADIFF, CMP, GFR, ANEU #### [address] [address] Eosinophils/100 WBC (Bld) 4.7 % Normal 0.0-7.0 [facility] ([place]) Comment on above: Performed By: #### M G, CBC, ADIFF, CMP, GFR, ANEU #### [address] [address] Lymphocyte, Absolute 3.2 10 3/mcL Normal 0.8-3.9 [facility] ([place]) Comment on above: Performed By: #### M G, CBC, ADIFF, CMP, GFR, ANEU #### [address] [address] Lymphocytes/100 WBC (Bld) 28.8 % Normal 10.0-50.0 [facility] ([place]) Comment on above: Performed By: #### M G, CBC, ADIFF, CMP, GFR, ANEU #### [address] [address] Monocyte, Absolute 1.2 10 3/mcL High 0.2-1.0 [facility] ([place]) Comment on above: Performed By: #### M G, CBC, ADIFF, CMP, GFR, ANEU #### [address] [address] Monocytes/100 WBC (Bld) 10.5 % Normal 1.7-13.0 [facility] ([place]) Comment on above: Performed By: #### M G, CBC, ADIFF, CMP, GFR, ANEU #### [address] [address] Neutrophils/100 WBC (Bld) 55.4 % Normal 37.0-80.0 [facility] ([place]) Comment on above: Performed By: #### M G, CBC, ADIFF, CMP, GFR, ANEU #### [address] [address] .GFRon 11-19-2022 GFR 74 ml/min/1.73sqm Normal [facility] ([place]) Comment on above: Result Comment: GFR Population mean for , Non- Americans Ages 20-29 = 116 mL/min/1.73 sq.m. Ages 30-39 = 107 mL/min/1.73 sq.m. Ages 40-49 = 99 mL/min/1.73 sq.m. Ages 50-59 = 93 mL/min/1.73 sq.m. Ages 60-69 = 85 mL/min/1.73 sq.m. Ages 70+ = 75 mL/min/1.73 sq.m. Chronic Kidney Disease: Less than 60 mL/min/1.73 square meters End Stage Renal Disease: Less than 15 mL/min/1.73 square meters Performed By: #### O CC #### [address] [address] GFR Non- 61 ml/min/1.73sqm Normal [facility] ([place]) Comment on above: Result Comment: GFR Population mean for , Non- Americans Ages 20-29 = 116 mL/min/1.73 sq.m. Ages 30-39 = 107 mL/min/1.73 sq.m. Ages 40-49 = 99 mL/min/1.73 sq.m. Ages 50-59 = 93 mL/min/1.73 sq.m. Ages 60-69 = 85 mL/min/1.73 sq.m. Ages 70+ = 75 mL/min/1.73 sq.m. Chronic Kidney Disease: Less than 60 mL/min/1.73 square meters End Stage Renal Disease: Less than 15 mL/min/1.73 square meters Performed By: #### O CC #### [address] [address] .NEUABSon 11-19-2022 Neutrophil, Absolute 6.2 10 3/mcL Normal 2.9-6.2 [facility] ([place]) Comment on above: Performed By: #### O CC #### [place] [address] CBCon 11-19-2022 Erythrocyte distribution width (RBC) [Ratio] 14.1 % Normal 11.5-14.5 [facility] ([place]) Comment on above: Performed By: #### M G, CBC, ADIFF, CMP, GFR, ANEU #### [place] [address] Hematocrit (Bld) [Volume fraction] 35.0 % Low 42.0-52.0 [facility] ([place]) Comment on above: Performed By: #### M G, CBC, ADIFF, CMP, GFR, ANEU #### [place] [address] Hgb 11.8 G/dL Low 14.0-18.0 [facility] ([place]) Comment on above: Performed By: #### M G, CBC, ADIFF, CMP, GFR, ANEU #### [place] [address] MCH (RBC) [Entitic mass] 29.1 pg Normal 27.0-31.2 [facility] ([place]) Comment on above: Performed By: #### M G, CBC, ADIFF, CMP, GFR, ANEU #### [place] [address] MCHC 33.6 G/dL Normal 31.8-35.4 [facility] ([place]) Comment on above: Performed By: #### M G, CBC, ADIFF, CMP, GFR, ANEU #### [place] [address] MCV (RBC) [Entitic vol] 86.6 fL Normal 80.0-94.0 [facility] ([place]) Comment on above: Performed By: #### M G, CBC, ADIFF, CMP, GFR, ANEU #### [address] [address] Platelet 327 10 3/mcL Normal 130-400 [facility] ([place]) Comment on above: Performed By: #### M G, CBC, ADIFF, CMP, GFR, ANEU #### [address] [address] Platelet mean volume (Bld) [Entitic vol] 8.2 fL Normal 7.4-10.4 [facility] ([place]) Comment on above: Performed By: #### M G, CBC, ADIFF, CMP, GFR, ANEU #### [address] [address] RBC 4.04 10 6/mcL Normal 4.04-6.13 [facility] ([place]) Comment on above: Performed By: #### M G, CBC, ADIFF, CMP, GFR, ANEU #### [address] [address] WBC 11.1 10 3/mcL High 4.6-10.8 [facility] ([place]) Comment on above: Performed By: #### M G, CBC, ADIFF, CMP, GFR, ANEU #### [address] [address] CMPon 11-19-2022 Albumin Level 3.4 G/dL Normal 3.4-4.8 [facility] ([place]) Comment on above: Performed By: #### O CC #### [address] [address] Albumin/Globulin [Mass ratio] 1.3 {ratio} Normal 1.1-2.5 [facility] ([place] Comment on above: Performed By: #### O CC #### [address] [address] ALP [Catalytic activity/Vol] 92 U/L Normal 40-135 [facility] ([place]) Comment on above: Performed By: #### O CC #### [address] [address] ALT [Catalytic activity/Vol] 25 U/L Normal 16-63 [facility] ([place]) Comment on above: Performed By: #### O CC #### [address] [address] AST [Catalytic activity/Vol] 21 U/L Normal 10-40 [facility] ([place] Comment on above: Performed By: #### O CC #### [address] [address] Bili Total 0.8 mg/dL Normal 0.2-1.0 [facility] ([place]) Comment on above: Result Comment: Use of this assay is not recommended for patients undergoing treatment with eltrombopag due to the potential for falsely elevated results. Performed By: #### O CC #### [address] [address] BUN/Creatinine Ratio 13 ratio Normal 7-27 [facility] ([place]) Comment on above: Performed By: #### O CC #### [address] [address] Calcium [Mass/Vol] 8.8 mg/dL Normal 8.4-10.2 [facility] ([place]) Comment on above: Performed By: #### O CC #### [address] [address] Chloride [Moles/Vol] 106 mmol/L Normal 98-107 [facility] ([place]) Comment on above: Performed By: #### O CC #### [address] [address] CO2 [Moles/Vol] 24 mmol/L Normal 23-31 [facility] ([place] Comment on above: Performed By: #### O CC #### [address] [address] Creatinine [Mass/Vol] 1.19 mg/dL Normal 0.70-1.30 [facility] ([place]) Comment on above: Performed By: #### O CC #### [address] [address] Electrolyte Balance 12.0 mEq/L Normal 4.0-15.0 [facility] ([place]) Comment on above: Performed By: #### O CC #### [address] [address] Globulin 2.7 G/dL Normal [facility] ([place]) Comment on above: Performed By: #### O CC #### [address] [place], [place] [address] Glucose [Mass/Vol] 89 mg/dL Normal 80-115 [facility] ([place]) Comment on above: Performed By: #### O CC #### [address] [address] Potassium [Moles/Vol] 3.8 mmol/L Normal 3.5-5.1 [facility] ([place]) Comment on above: Performed By: #### O CC #### [address] [address] Sodium [Moles/Vol] 142 mmol/L Normal 136-145 [facility] ([place]) Comment on above: Performed By: #### O CC #### [address] [address] Total Protein 6.1 G/dL Low 6.4-8.2 [facility] ([place] Comment on above: Performed By: #### O CC #### [address] [address] Urea nitrogen [Mass/Vol] 15 mg/dL Normal 7-18 [facility]) Comment on above: Performed By: #### O CC #### [address] [address] LABORATORYOrdered By: SYSTEM SYSTEM on 11-19-2022 Albumin BCP dye [Mass/Vol] 3.4 G/dL Invalid Interpretation Code 3.4 - 4.8 G/dL AO ADM SS Albumin/Globulin [Mass ratio] 1.3 {ratio} Invalid Interpretation Code 1.1 - 2.5 ratio AO ADM SS ALP [Catalytic activity/Vol] 92 U/L Invalid Interpretation Code 40 - 135 U/L AO ADM SS ALT With P-5'-P [Catalytic activity/Vol] 25 U/L Invalid Interpretation Code 16 - 63 U/L AO ADM SS AST With P-5'-P [Catalytic activity/Vol] 21 U/L Invalid Interpretation Code 10 - 40 U/L AO ADM SS Bilirubin [Mass/Vol] 0.8 mg/dL Invalid Interpretation Code 0.2 - 1.0 mg/dL AO ADM SS Calcium [Mass/Vol] 8.8 mg/dL Invalid Interpretation Code 8.4 - 10.2 mg/dL AO ADM SS Chloride [Moles/Vol] 106 mmol/L Invalid Interpretation Code 98 - 107 mmol/L AO ADM SS CO2 [Moles/Vol] 24 mmol/L Invalid Interpretation Code 23 - 31 mmol/L AO ADM SS Creatinine [Mass/Vol] 1.19 mg/dL Invalid Interpretation Code 0.70 - 1.30 mg/dL AO ADM SS Electrolyte Balance 12.0 mEq/L Invalid Interpretation Code 4.0 - 15.0 mEq/L AO ADM SS GFR/1.73 sq M.predicted among blacks MDRD (S/P/Bld) [Vol rate/Area] 74 ml/min/1.73sqm Invalid Interpretation Code AO Chemistry S GFR/1.73 sq M.predicted among non-blacks MDRD (S/P/Bld) [Vol rate/Area] 61 ml/min/1.73sqm Invalid Interpretation Code AO Chemistry S Globulin 2.7 G/dL Invalid Interpretation Code AO ADM SS Glucose [Mass/Vol] 89 mg/dL Invalid Interpretation Code 80 - 115 mg/dL AO ADM SS Magnesium [Mass/Vol] 2.1 mg/dL Invalid Interpretation Code 1.8 - 2.4 mg/dL AO ADM SS Natriuretic peptide.B prohormone N-Terminal [Mass/Vol] 322 pg/mL Invalid Interpretation Code 0 - 125 pg/mL AO ADM SS Potassium [Moles/Vol] 3.8 mmol/L Invalid Interpretation Code 3.5 - 5.1 mmol/L AO ADM SS Protein [Mass/Vol] 6.1 G/dL Invalid Interpretation Code 6.4 - 8.2 G/dL AO ADM SS Sodium [Moles/Vol] 142 mmol/L Invalid Interpretation Code 136 - 145 mmol/L AO ADM SS Urea nitrogen [Mass/Vol] 15 mg/dL Invalid Interpretation Code 7 - 18 mg/dL AO ADM SS Urea nitrogen/Creatinine [Mass ratio] 13 ratio Invalid Interpretation Code 7 - 27 ratio AO ADM SS LABORATORYOrdered By: Marcy Watkins on 11-19-2022 Basophil, Absolute 0.1 103/mcL Invalid Interpretation Code 0.0 - 0.2 10^3/mcL AO Workflow SS Basophils/100 WBC (Bld) 0.6 % Invalid Interpretation Code 0.0 - 2.5 % AO Workflow SS Eosinophil, Absolute 0.5 103/mcL Invalid Interpretation Code 0.0 - 0.4 10^3/mcL AO Workflow SS Eosinophils/100 WBC (Bld) 4.7 % Invalid Interpretation Code 0.0 - 7.0 % AO Workflow SS Erythrocyte distribution width (RBC) [Ratio] 14.1 % Invalid Interpretation Code 11.5 - 14.5 % AO Workflow SS Hematocrit (Bld) [Volume fraction] 35.0 % Invalid Interpretation Code 42.0 - 52.0 % AO Workflow SS Hemoglobin (Bld) [Mass/Vol] 11.8 G/dL Invalid Interpretation Code 14.0 - 18.0 G/dL AO Workflow SS Lymphocyte, Absolute 3.2 103/mcL Invalid Interpretation Code 0.8 - 3.9 10^3/mcL AO Workflow SS Lymphocytes/100 WBC (Bld) 28.8 % Invalid Interpretation Code 10.0 - 50.0 % AO Workflow SS MCH (RBC) [Entitic mass] 29.1 pg Invalid Interpretation Code 27.0 - 31.2 pg AO Workflow SS MCHC 33.6 G/dL Invalid Interpretation Code 31.8 - 35.4 G/dL AO Workflow SS MCV (RBC) [Entitic vol] 86.6 fL Invalid Interpretation Code 80.0 - 94.0 fL AO Workflow SS Monocyte, Absolute 1.2 103/mcL Invalid Interpretation Code 0.2 - 1.0 10^3/mcL AO Workflow SS Monocytes/100 WBC (Bld) 10.5 % Invalid Interpretation Code 1.7 - 13.0 % AO Workflow SS Neutrophil, Absolute 6.2 103/mcL Invalid Interpretation Code 2.9 - 6.2 10^3/mcL AO Workflow SS Neutrophils/100 WBC (Bld) 55.4 % Invalid Interpretation Code 37.0 - 80.0 % AO Workflow SS Platelet mean volume (Bld) [Entitic vol] 8.2 fL Invalid Interpretation Code 7.4 - 10.4 fL AO Workflow SS Platelets (Bld) [#/Vol] 327 103/mcL Invalid Interpretation Code 130 - 400 10^3/mcL AO Workflow SS RBC (Bld) [#/Vol] 4.04 106/mcL Invalid Interpretation Code 4.04 - 6.13 10^6/mcL AO Workflow SS WBC (Bld) [#/Vol] 11.1 103/mcL Invalid Interpretation Code 4.6 - 10.8 10^3/mcL AO Workflow SS MGon 11-19-2022 Magnesium [Mass/Vol] 2.1 mg/dL Normal 1.8-2.4 [facility] ([place]) Comment on above: Performed By: #### O #### [address] [address] PBNPon 11-19-2022 Natriuretic peptide B (Bld) [Mass/Vol] 322 pg/mL High 0-125 [facility] ([place]) Comment on above: Result Comment: NT-p roBNP results of less than 300 pg/mL effectively rules out acute congestive heart failure with 99% negative predictive value. Performed By: #### F ES, #### [address] [address] XR CHEST 2 VIEWSon 3 XR CHEST 2 VIEWS ORIGINAL EXAMINATION: TWO XRAY VIEWS OF THE CHEST 11/19/2022 7:46 am COMPARISON: Chest x-ray on 11/18/2022 HISTORY: ORDERING SYSTEM PROVIDED HISTORY: Reason for Exam: PNA FINDINGS: The heart size is at the upper limits of normal. There is mild vascular congestion, but lung markings are less prominent than on chest x-ray from the prior day. There is mild atelectasis at the left lung base. No pleural fluid or pneumothorax is present. No acute skeletal abnormality is detected. Sternal wire sutures are intact. IMPRESSION: Mild pulmonary vascular congestion showing improvement from the prior day. Mild left basilar atelectasis. Interpreted by: Joel Bowen MD Preliminary Report By: Joel Boewn MD Electronically signed By Joel Bowen MD Dictated Date: 11/19/2022 7:49:18 AM Prelim Date: 11/19/2022 7:51:22 AM Sign Date: 11/19/2022 7:51:22 AM Ordering Provider: KYLIE Robles [facility] ([place]) .Auto Diffon 11-18-2022 Basophil, Absolute 0.1 10 3/mcL Normal 0.0-0.2 [facility] ([place]) Comment on above: Performed By: #### F ES, HH #### [address] [address] Basophils/100 WBC (Bld) 0.6 % Normal 0.0-2.5 [facility] ([place]) Comment on above: Performed By: #### F ES, HH #### [address] [address] Eosinophil, Absolute 0.6 10 3/mcL High 0.0-0.4 [facility] ([place]) Comment on above: Performed By: #### F ES, HH #### [address] [address] Eosinophils/100 WBC (Bld) 5.3 % Normal 0.0-7.0 [facility] ([place]) Comment on above: Performed By: #### F ES, #### [address] [address] Lymphocyte, Absolute 1.8 10 3/mcL Normal 0.8-3.9 [facility] ([place]) Comment on above: Performed By: #### F ES, #### [address] [address] Lymphocytes/100 WBC (Bld) 16.7 % Normal 10.0-50.0 [facility] ([place]) Comment on above: Performed By: #### F ES, HH #### [address] [address] Monocyte, Absolute 0.8 10 3/mcL Normal 0.2-1.0 [facility] ([place]) Comment on above: Performed By: #### F ES, HH #### [address] [address] Monocytes/100 WBC (Bld) 7.4 % Normal 1.7-13.0 [facility] ([place]) Comment on above: Performed By: #### F ES, HH #### [address] [address] Neutrophils/100 WBC (Bld) 70.0 % Normal 37.0-80.0 [facility] ([place]) Comment on above: Performed By: #### F ES, #### [address] [address] .GFRon 11-18-2022 GFR 59 ml/min/1.73sqm Normal [facility] ([place]) Comment on above: Result Comment: GFR Population mean for , Non- Americans Ages 20-29 = 116 mL/min/1.73 sq.m. Ages 30-39 = 107 mL/min/1.73 sq.m. Ages 40-49 = 99 mL/min/1.73 sq.m. Ages 50-59 = 93 mL/min/1.73 sq.m. Ages 60-69 = 85 mL/min/1.73 sq.m. Ages 70+ = 75 mL/min/1.73 sq.m. Chronic Kidney Disease: Less than 60 mL/min/1.73 square meters End Stage Renal Disease: Less than 15 mL/min/1.73 square meters Performed By: #### F ES, #### [address] [address] GFR Non- 49 ml/min/1.73sqm Normal [facility] ([place]) Comment on above: Result Comment: GFR Population mean for , Non- Americans Ages 20-29 = 116 mL/min/1.73 sq.m. Ages 30-39 = 107 mL/min/1.73 sq.m. Ages 40-49 = 99 mL/min/1.73 sq.m. Ages 50-59 = 93 mL/min/1.73 sq.m. Ages 60-69 = 85 mL/min/1.73 sq.m. Ages 70+ = 75 mL/min/1.73 sq.m. Chronic Kidney Disease: Less than 60 mL/min/1.73 square meters End Stage Renal Disease: Less than 15 mL/min/1.73 square meters Performed By: #### F ES, #### [address] [address] .MDWon 11-18-2022 Monocyte Distribution Width 16.81 Normal 0.00-20.00 [facility] ([place]) Comment on above: Performed By: #### F ES, #### [address] [address] .Morphon 11-18-2022 Anisocytosis Ql (Bld) 1+ Normal [facility] ([place]) Comment on above: Performed By: #### F ES, HH #### [address] [address] Echinocytes 1+ Normal [facility] ([place]) Comment on above: Performed By: #### F ES, HH #### [address] [address] Platelet Estimate Normal Normal [facility] ([place]) Comment on above: Performed By: #### F ES, HH #### [address] [address] .NEUABSon 11-18-2022 Neutrophil, Absolute 7.6 10 3/mcL High 2.9-6.2 [facility] ([place]) Comment on above: Performed By: #### F ES, #### [address] [address] BMPon 11-18-2022 BUN/Creatinine Ratio 12 ratio Normal 7-27 [facility] ([place]) Comment on above: Performed By: #### F ES, #### [address] [address] Calcium [Mass/Vol] 9.1 mg/dL Normal 8.4-10.2 [facility] ([place]) Comment on above: Performed By: #### F ES, HH #### [address] [address] Chloride [Moles/Vol] 106 mmol/L Normal 98-107 [facility] ([place]) Comment on above: Performed By: #### F ES, HH #### [address] [address] CO2 [Moles/Vol] 25 mmol/L Normal 23-31 [facility] ([place] Comment on above: Performed By: #### F ES, #### [address] [address] Creatinine [Mass/Vol] 1.45 mg/dL High 0.70-1.30 [facility] ([place]) Comment on above: Performed By: #### F ES, HH #### [address] [address] Electrolyte Balance 11.0 mEq/L Normal 4.0-15.0 [facility] ([place]) Comment on above: Performed By: #### F ES, HH #### [address] [address] Glucose [Mass/Vol] 91 mg/dL Normal 80-115 [facility] ([place]) Comment on above: Performed By: #### F ES, HH #### [address] [address] Potassium [Moles/Vol] 4.4 mmol/L Normal 3.5-5.1 [facility] ([place]) Comment on above: Performed By: #### F ES, HH #### [address] [address] Sodium [Moles/Vol] 142 mmol/L Normal 136-145 [facility] ([place]) Comment on above: Performed By: #### F ES, HH #### [address] [address] Urea nitrogen [Mass/Vol] 18 mg/dL Normal 7-18 [facility] ([place] Comment on above: Performed By: #### F ES, HH #### [address] [address] CBCon 11-18-2022 Erythrocyte distribution width (RBC) [Ratio] 14.5 % Normal 11.5-14.5 [facility] ([place] Comment on above: Performed By: #### F ES, HH #### [address] [address] Hematocrit (Bld) [Volume fraction] 37.6 % Low 42.0-52.0 [facility] ([place] Comment on above: Performed By: #### F ES, HH #### [address] [address] Hgb 12.6 G/dL Low 14.0-18.0 [facility] ([place] Comment on above: Performed By: #### F ES, HH #### [address] [address] MCH (RBC) [Entitic mass] 29.6 pg Normal 27.0-31.2 [facility] ([place] Comment on above: Performed By: #### F ES, HH #### [address] [address] MCHC 33.6 G/dL Normal 31.8-35.4 [facility] ([place]) Comment on above: Performed By: #### F ES, HH #### [address] [address] MCV (RBC) [Entitic vol] 88.1 fL Normal 80.0-94.0 A [facility] ([place]) Comment on above: Performed By: #### F ES, HH #### [address] [address] Platelet 353 10 3/mcL Normal 130-400 [facility] ([place] Comment on above: Performed By: #### F ES, HH #### [address] [address] Platelet mean volume (Bld) [Entitic vol] 8.5 fL Normal 7.4-10.4 [facility] ([place]) Comment on above: Performed By: #### F ES, HH #### [address] [address] RBC 4.27 10 6/mcL Normal 4.04-6.13 [facility] ([place] Comment on above: Performed By: #### F ES, HH #### [address] [address] WBC 10.8 10 3/mcL Normal 4.6-10.8 [facility] ([place] Comment on above: Performed By: #### F , #### [address] [place] [address] LABORATORYOrdered By: [employer] on 11-18-2022 Calcium [Mass/Vol] 9.1 mg/dL Invalid Interpretation Code 8.4 - 10.2 mg/dL AO ADM SS Chloride [Moles/Vol] 106 mmol/L Invalid Interpretation Code 98 - 107 mmol/L AO ADM SS CO2 [Moles/Vol] 25 mmol/L Invalid Interpretation Code 23 - 31 mmol/L AO ADM SS Creatinine [Mass/Vol] 1.45 mg/dL Invalid Interpretation Code 0.70 - 1.30 mg/dL AO ADM SS Electrolyte Balance 11.0 mEq/L Invalid Interpretation Code 4.0 - 15.0 mEq/L AO ADM SS GFR/1.73 sq M.predicted among blacks MDRD (S/P/Bld) [Vol rate/Area] 59 ml/min/1.73sqm Invalid Interpretation Code AO Chemistry S GFR/1.73 sq M.predicted among non-blacks MDRD (S/P/Bld) [Vol rate/Area] 49 ml/min/1.73sqm Invalid Interpretation Code AO Chemistry S Glucose [Mass/Vol] 91 mg/dL Invalid Interpretation Code 80 - 115 mg/dL AO ADM SS Potassium [Moles/Vol] 4.4 mmol/L Invalid Interpretation Code 3.5 - 5.1 mmol/L AO ADM SS Sodium [Moles/Vol] 142 mmol/L Invalid Interpretation Code 136 - 145 mmol/L AO ADM SS Urea nitrogen [Mass/Vol] 18 mg/dL Invalid Interpretation Code 7 - 18 mg/dL AO ADM SS Urea nitrogen/Creatinine [Mass ratio] 12 ratio Invalid Interpretation Code 7 - 27 ratio AO ADM SS Natriuretic peptide.B prohormone N-Terminal [Mass/Vol] 255 pg/mL Invalid Interpretation Code 0 - 125 pg/mL AO ADM SS Troponin I.cardiac DL <= 0.01 ng/mL [Mass/Vol] 5.1 ng/L Invalid Interpretation Code 0.0 - 76.2 ng/L AO ADM SS LABORATORYOrdered By: Kala Marie on 11-18-2022 Anisocytosis Ql (Bld) 1+ *NA* (11/18/22 1:40 PM) Invalid Interpretation Code AO Workflow SS Basophil, Absolute 0.1 103/mcL Invalid Interpretation Code 0.0 - 0.2 10^3/mcL AO Workflow SS Basophils/100 WBC (Bld) 0.6 % Invalid Interpretation Code 0.0 - 2.5 % AO Workflow SS Gian cells LM Ql (Bld) 1+ *NA* (11/18/22 1:40 PM) Invalid Interpretation Code AO Workflow SS Eosinophil, Absolute 0.6 103/mcL Invalid Interpretation Code 0.0 - 0.4 10^3/mcL AO Workflow SS Eosinophils/100 WBC (Bld) 5.3 % Invalid Interpretation Code 0.0 - 7.0 % AO Workflow SS Erythrocyte distribution width (RBC) [Ratio] 14.5 % Invalid Interpretation Code 11.5 - 14.5 % AO Workflow SS Hematocrit (Bld) [Volume fraction] 37.6 % Invalid Interpretation Code 42.0 - 52.0 % AO Workflow SS Hemoglobin (Bld) [Mass/Vol] 12.6 G/dL Invalid Interpretation Code 14.0 - 18.0 G/dL AO Workflow SS Lymphocyte, Absolute 1.8 103/mcL Invalid Interpretation Code 0.8 - 3.9 10^3/mcL AO Workflow SS Lymphocytes/100 WBC (Bld) 16.7 % Invalid Interpretation Code 10.0 - 50.0 % AO Workflow SS MCH (RBC) [Entitic mass] 29.6 pg Invalid Interpretation Code 27.0 - 31.2 pg AO Workflow SS MCHC 33.6 G/dL Invalid Interpretation Code 31.8 - 35.4 G/dL AO Workflow SS MCV (RBC) [Entitic vol] 88.1 fL Invalid Interpretation Code 80.0 - 94.0 fL AO Workflow SS Monocyte distribution width Auto (Bld) [Entitic vol] 16.81 Invalid Interpretation Code 0.00 - 20.00 AO Hematology S Monocyte, Absolute 0.8 103/mcL Invalid Interpretation Code 0.2 - 1.0 10^3/mcL AO Workflow SS Monocytes/100 WBC (Bld) 7.4 % Invalid Interpretation Code 1.7 - 13.0 % AO Workflow SS Neutrophil, Absolute 7.6 103/mcL Invalid Interpretation Code 2.9 - 6.2 10^3/mcL AO Workflow SS Neutrophils/100 WBC (Bld) 70.0 % Invalid Interpretation Code 37.0 - 80.0 % AO Workflow SS Platelet Estimate Normal *NA* (11/18/22 1:40 PM) Invalid Interpretation Code AO Workflow SS Platelet mean volume (Bld) [Entitic vol] 8.5 fL Invalid Interpretation Code 7.4 - 10.4 fL AO Workflow SS Platelets (Bld) [#/Vol] 353 103/mcL Invalid Interpretation Code 130 - 400 10^3/mcL AO Workflow SS RBC (Bld) [#/Vol] 4.27 106/mcL Invalid Interpretation Code 4.04 - 6.13 10^6/mcL AO Workflow SS WBC (Bld) [#/Vol] 10.8 103/mcL Invalid Interpretation Code 4.6 - 10.8 10^3/mcL AO Workflow SS PBNPon 11-18-2022 Natriuretic peptide B (Bld) [Mass/Vol] 255 pg/mL High 0-125 [facility] ([place]) Comment on above: Result Comment: NT-p roBNP results of less than 300 pg/mL effectively rules out acute congestive heart failure with 99% negative predictive value. Performed By: #### F , #### [address] [address] TROPHSon 11-18-2022 Troponin I High Sensitivity 5.1 ng/L Normal 0.0-76.2 [facility] ([place]) Comment on above: Performed By: #### F , #### [address] [address] XR CHEST 1 VIEWon 11-18-2022 XR CHEST 1 VIEW ORIGINAL EXAMINATION: ONE XRAY VIEW OF THE CHEST 11/18/2022 2:11 pm COMPARISON: None. HISTORY: ORDERING SYSTEM PROVIDED HISTORY: Reason for Exam: SOB/cough/fever FINDINGS: Median sternotomy wires are noted. The cardiac contour is mildly enlarged. There is mild bilateral interstitial prominence greatest within the lung bases. No large pleural effusion or pneumothorax. The osseous structures appear intact. IMPRESSION: Mild cardiomegaly with bilateral interstitial prominence greatest within the lung bases may be on the basis of CHF/edema. Superimposed atypical pneumonia is not excluded. I have personally reviewed the images of this examination and agree with the resident's findings and interpretation. Interpreted by: Lissa Tate MD Preliminary Report By: Foreign Lewis Electronically signed By Lissa Tate MD Dictated Date: 11/18/2022 2:19:54 PM Prelim Date: 11/18/2022 2:21:16 PM Sign Date: 11/18/2022 2:43:00 PM Ordering Provider: LILIBETH Robles [facility] ([place]) Absolute lymphocyte countOrd ered By: Dr. Burns on 11-15-2022 Lymphocytes Auto (Unsp spec) [#/Vol] 1.35 10*3/uL 0.83-4.51 [facility] Basophil percentageOrdered B y: Dr. Burns on 11-15-2022 Basophils/100 WBC (Bld) 1.0 % 0-1 [facility] Chloride [Moles/Vol] 106 mmol/L 98-107 [facility] Eosinophils/100 WBC (Bld) 8.3 % 0-5 [facility] Glucose [Mass/Vol] 88 mg/dL 74-106 [facility] Neutrophils (Bld) [#/Vol] 5.1 10*3/uL 2.0-7.7 [facility] Neutrophils/100 WBC (Bld) 60.7 % 47-70 [facility] Potassium [Moles/Vol] 3.3 mmol/L 3.5-5.1 [facility] Sodium [Moles/Vol] 138 mmol/L 136-145 [facility] WBC (Bld) [#/Vol] 8.4 10*3/uL 4.4-11.0 [facility] Blood erythrocytes count (nu mber/volume)Ordered By: Dr. Burns on 11-15-2022 RBC (Bld) [#/Vol] 4.00 10*6/uL 4.6-6.2 [facility] Blood hemoglobin measurement (mass/volume)Ordered By: Dr. Burns on 11-15-2022 Hemoglobin (Bld) [Mass/Vol] 11.7 g/dL 13.0-16.5 [facility] Blood lymphocytes/100 leukoc ytesOrdered By: Dr. Burns on 11-15-2022 Lymphocytes/100 WBC (Bld) 16.1 % 19-41 [facility] Blood monocytes/100 leukocyt esOrdered By: Dr. Burns on 11-15-2022 Monocytes/100 WBC (Bld) 12.1 % 0-10 [facility] Blood platelet mean volumeOr dered By: Dr. Burns on 11-15-2022 Platelet mean volume (Bld) [Entitic vol] 10.3 fL 6.2-12.0 [facility] Determination of erythrocyte mean corpuscular volume (MCV)Ordered By: Dr. Burns on 11-15-2022 MCV (RBC) [Entitic vol] 91.8 fL 80-94 [facility] Gram stain for investigation of transfusion reactionOrdered By: Dr. Escalante on 11-15-2022 Microscopic observation Gram stain Nom (Unsp spec) [facility] Hematocrit Auto (Bld) [Volum e fraction]Ordered By: Dr. Burns on 11-15-2022 Hematocrit (Bld) [Volume fraction] 36.7 % 40-54 [facility] Laboratory - Chemistry and C hemistry - challengeOrdered By: Dr. Burns on 11-15-2022 CO2 [Moles/Vol] 29.0 mmol/L 21.0-32.0 [facility] Urea nitrogen/Creatinine [Mass ratio] 12.7 mg/mg 10-20 [facility] Laboratory - Hematology and Cell countsOrdered By: Dr. Burns on 11-15-2022 Erythrocyte distribution width (RBC) [Entitic vol] 45.8 fL 35.1-43.9 [facility] Erythrocyte distribution width (RBC) [Ratio] 13.4 % 11.6-14.6 [facility] Immature granulocytes/100 WBC (Bld) 1.800 % 0.0-0.9 [facility] Comment on above: IG% - Immature Granu locytes (promyelocytes, myelocytes and metamyelocytes) > 1% indicates that a LEFT SHIFT is Present. MCH (RBC) [Entitic mass] 29.3 pg 27.0-32.0 [facility] Nucleated RBC/100 WBC (Bld) [Ratio] 0 % 0-5 [facility] MCHC Auto (RBC) [Mass/Vol]Or dered By: Dr. Burns on 11-15-2022 MCHC (RBC) [Mass/Vol] 31.9 g/dL 32-36 [facility] Microbial respiratory cultur eOrdered By: Dr. Escalante on 11-15-2022 Bacteria identified Respiratory culture Nom (Unsp spec) or Staphylococcus aureus isolated. [facility] No Panel InformationOrdered By: Dr. Burns on 11-15-2022 Estimated Creatinine Clearance Calc 67.29 ml/min [facility] Estimated GFR (MDRD) Amer 86 mL/min >60 [facility] Comment on above: GFR Calc Estimated GFR (MDRD) Non-Af Amer 71 mL/min >60 [facility] Comment on above: Non- GFR Calc Platelets bldOrdered By: Dr. Burns on 11-15-2022 Platelets (Bld) [#/Vol] 304 10*3/uL 150-450 [facility] Serum or plasma calcium jerome urement (mass/volume)Ordered By: Dr. Burns on 11-15-2022 Calcium [Mass/Vol] 9.0 mg/dL 8.5-10.1 [facility] Serum or plasma creatinine m easurement (mass/volume)Ordered By: Dr. Burns on 11-15-2022 Creatinine [Mass/Vol] 1.10 mg/dL 0.70-1.30 [facility] Comment on above: The validity of the calculated GFR & GFRAA in patients over 70 years has not been determined. Clinical correlation is essential. Serum or plasma urea nitroge n measurement (mass/volume)Ordered By: Dr. Burns on 11-15-2022 Urea nitrogen [Mass/Vol] 14 mg/dL 7-18 [facility] Thin prep Papanicolaou smear with manual screeningOrdered By: Dr. Burns on 11-15-2022 Thin prep Papanicolaou smear with manual screening 3 5-15 [facility] No Panel InformationOrdered By: Dr. Escalante on 11-14-2022 Streptococcus pneumoniae Antigen (M [facility] Serum procalcitonin measurem entOrdered By: Dr. Burns on 11-14-2022 Procalcitonin [Mass/Vol] 0.88 ng/mL 0.00-0.09 [facility] Comment on above: A procalcitonin (PCT ) level above 2.0 ng/mL on the first day of ICU admission is associated with a high risk for progression to severe sepsis and/or septic shock. A PCT level below 0.5 ng/mL on the first day of ICU admission is associated with a low risk for progression to severe and/or septic shock. Note: Concentrations <0.5 ng/mL do not exclude an infection on account of localized infections (without systemic signs) which can be associated with such low concentrations, or a systemic infection in its initial stages (<6 hours). Furthermore, increased procalcitonin can occur without infection. PCT concentrations between 0.5 and 2.0 ng/mL should be interpreted taking into account the patient's history. It is recommended to retest PCT within 6-24 hours if any concentrations <2 ng/mL are obtained. Urine Legionella pneumophila antigen detectionOrdered By: Dr. Escalante on 11-14-2022 L. pneumophila Ag Ql (U) [facility] Absolute lymphocyte countOrd ered By: Dr. Lin on 11-11-2022 Lymphocytes Auto (Unsp spec) [#/Vol] 1.13 10*3/uL 0.83-4.51 [facility] Assessment of wrist artery p atency prior to arterial punctureOrdered By: Dr. Lin on 11-11-2022 Arterial patency Wrist artery --pre arterial puncture Positive [facility] Base excessOrdered By: Dr. Hailey linares on 11-11-2022 Base excess Calc (BldV) [Moles/Vol] 2 mmol/L -2-2 [facility] Basophil percentageOrdered B y: Dr. Lin on 11-11-2022 Basophil percentage 25.8 mmol/L 22-26 [facility] Basophils/100 WBC (Bld) 91 % 95-99 [facility] Lactate [Moles/Vol] 1.9 mmol/L 0.4-2.0 [facility] Basophils/100 WBC (Bld) 0.3 % 0-1 [facility] Bilirubin [Mass/Vol] 1.30 mg/dL 0.20-1.00 [facility] Comment on above: For patients on eltr ombopag therapy, use of Dimension [place] TBIL is not recommended. Chloride [Moles/Vol] 105 mmol/L 98-107 [facility] Eosinophils/100 WBC (Bld) 0.1 % 0-5 [facility] Glucose [Mass/Vol] 104 mg/dL 74-106 [facility] Comment on above: Fasting Glucose resu lt from 100 to 125 mg/dL suggests IMPAIRED HOMEOSTASIS per A.D.A. criteria. Neutrophils (Bld) [#/Vol] 16.6 10*3/uL 2.0-7.7 [facility] Neutrophils/100 WBC (Bld) 85.8 % 47-70 [facility] Potassium [Moles/Vol] 4.1 mmol/L 3.5-5.1 [facility] Protein [Mass/Vol] 6.5 g/dL 6.4-8.2 [facility] Sodium [Moles/Vol] 136 mmol/L 136-145 [facility] WBC (Bld) [#/Vol] 19.4 10*3/uL 4.4-11.0 [facility] Blood erythrocytes count (nu mber/volume)Ordered By: Dr. Lin on 11-11-2022 RBC (Bld) [#/Vol] 3.97 10*6/uL 4.6-6.2 [facility] Blood hemoglobin measurement (mass/volume)Ordered By: Dr. Lin on 11-11-2022 Hemoglobin (Bld) [Mass/Vol] 11.7 g/dL 13.0-16.5 [facility] Blood lymphocytes/100 leukoc ytesOrdered By: Dr. Lin on 11-11-2022 Lymphocytes/100 WBC (Bld) 5.8 % 19-41 [facility] Blood monocytes/100 leukocyt esOrdered By: Dr. Lin on 11-11-2022 Monocytes/100 WBC (Bld) 7.5 % 0-10 [facility] Blood platelet mean volumeOr dered By: Dr. Lin on 11-11-2022 Platelet mean volume (Bld) [Entitic vol] 11.4 fL 6.2-12.0 [facility] CO2 (BldA) [Partial pressure ]Ordered By: Dr. Lin on 11-11-2022 CO2 (Bld) [Partial pressure] 37.8 mm[Hg] 35-45 [facility] Determination of erythrocyte mean corpuscular volume (MCV)Ordered By: Dr. Lin on 11-11-2022 MCV (RBC) [Entitic vol] 90.9 fL 80-94 [facility] Hematocrit Auto (Bld) [Volum e fraction]Ordered By: Dr. Lin on 11-11-2022 Hematocrit (Bld) [Volume fraction] 36.1 % 40-54 [facility] Influenza virus A and B and SARS-CoV-2 (COVID-19) Ag panel - Upper respiratory specimOrdered By: Dr. Lin on 11-11-2022 SARS-CoV-2 (COVID-19) RNA PAMELA+probe Ql (Resp) [facility] Laboratory - Chemistry and C hemistry - challengeOrdered By: Dr. Lin on 11-11-2022 ALP [Catalytic activity/Vol] 85 U/L 45-117 [facility] ALT [Catalytic activity/Vol] 22 U/L 16-61 [facility] CO2 [Moles/Vol] 24.0 mmol/L 21.0-32.0 [facility] Globulin (S) [Mass/Vol] 3.4 g/dL 2.2-4.2 [facility] Urea nitrogen/Creatinine [Mass ratio] 14.8 mg/mg 10-20 [facility] Laboratory - Hematology and Cell countsOrdered By: Dr. Lin on 11-11-2022 Erythrocyte distribution width (RBC) [Entitic vol] 44.3 fL 35.1-43.9 [facility] Erythrocyte distribution width (RBC) [Ratio] 13.4 % 11.6-14.6 [facility] Immature granulocytes/100 WBC (Bld) 0.500 % 0.0-0.9 [facility] Comment on above: IG% - Immature Granu locytes (promyelocytes, myelocytes and metamyelocytes) > 1% indicates that a LEFT SHIFT is Present. MCH (RBC) [Entitic mass] 29.5 pg 27.0-32.0 [facility] Nucleated RBC/100 WBC (Bld) [Ratio] 0 % 0-5 [facility] MCHC Auto (RBC) [Mass/Vol]Or dered By: Dr. Lin on 11-11-2022 MCHC (RBC) [Mass/Vol] 32.4 g/dL 32-36 [facility] No Panel InformationOrdered By: Dr. Lin on 11-11-2022 Blood Gas Liter Flow 6.0 /min [facility] Blood Gas Sample Site R Radial [facility] Blood Gas Specimen Type ART [facility] Blood Gas Total CO2 27 mmol/L [facility] Oxygen Delivery Device Cannula [facility] Estimated Creatinine Clearance Calc 56.00 ml/min [facility] Estimated GFR (MDRD) Amer 72 mL/min >60 [facility] Comment on above: GFR Calc Estimated GFR (MDRD) Non-Af Amer 60 mL/min >60 [facility] Comment on above: Non- GFR Calc Oxygen (BldA) [Partial press ure]Ordered By: Dr. Lin on 11-11-2022 Oxygen (Bld) [Partial pressure] 59 mmHG 75-100 [facility] Platelets bldOrdered By: Dr. Lin on 11-11-2022 Platelets (Bld) [#/Vol] 300 10*3/uL 150-450 [facility] Serum or plasma albumin jerome urement (mass/volume)Ordered By: Dr. Lin on 11-11-2022 Albumin [Mass/Vol] 3.1 g/dL 3.2-5.0 [facility] Serum or plasma albumin/glob ulin mass ratioOrdered By: Dr. Lin on 11-11-2022 Albumin/Globulin [Mass ratio] 0.9 {ratio} 0.9-2.4 [facility] Serum or plasma calcium jerome urement (mass/volume)Ordered By: Dr. Lin on 11-11-2022 Calcium [Mass/Vol] 8.8 mg/dL 8.5-10.1 [facility] Serum or plasma creatinine m easurement (mass/volume)Ordered By: Dr. Lin on 11-11-2022 Creatinine [Mass/Vol] 1.28 mg/dL 0.70-1.30 [facility] Comment on above: The validity of the calculated GFR & GFRAA in patients over 70 years has not been determined. Clinical correlation is essential. Serum or plasma urea nitroge n measurement (mass/volume)Ordered By: Dr. Lin on 11-11-2022 Urea nitrogen [Mass/Vol] 19 mg/dL 7-18 [facility] Serum procalcitonin measurem entOrdered By: Dr. Lin on 11-11-2022 Procalcitonin [Mass/Vol] 4.26 ng/mL 0.00-0.09 [facility] Comment on above: A procalcitonin (PCT ) level above 2.0 ng/mL on the first day of ICU admission is associated with a high risk for progression to severe sepsis and/or septic shock. A PCT level below 0.5 ng/mL on the first day of ICU admission is associated with a low risk for progression to severe and/or septic shock. Note: Concentrations <0.5 ng/mL do not exclude an infection on account of localized infections (without systemic signs) which can be associated with such low concentrations, or a systemic infection in its initial stages (<6 hours). Furthermore, increased procalcitonin can occur without infection. PCT concentrations between 0.5 and 2.0 ng/mL should be interpreted taking into account the patient's history. It is recommended to retest PCT within 6-24 hours if any concentrations <2 ng/mL are obtained. Thin prep Papanicolaou smear with manual screeningOrdered By: Dr. Lin on 11-11-2022 Thin prep Papanicolaou smear with manual screening 16 U/L 15-37 [facility] Thin prep Papanicolaou smear with manual screening 7 5-15 [facility] pH measurementOrdered By: Dr Muriel Lin on 11-11-2022 pH (Unsp spec) 7.44 [pH] 7.35-7.45 [facility] Culture, urineOrdered By: Dr Muriel Burns on 08-18-2022 Bacteria identified Cx Nom (U) Proteus mirabilis [facility] Absolute lymphocyte countOrd ered By: Dr. Burns on 08-17-2022 Lymphocytes Auto (Unsp spec) [#/Vol] 1.31 10*3/uL 0.83-4.51 [facility] Basophil percentageOrdered B y: Dr. Burns on 08-17-2022 Basophils/100 WBC (Bld) 0.2 % 0-1 [facility] Bilirubin [Mass/Vol] 0.70 mg/dL 0.20-1.00 [facility] Comment on above: For patients on eltr ombopag therapy, use of Dimension [place] TBIL is not recommended. Chloride [Moles/Vol] 107 mmol/L 98-107 [facility] Eosinophils/100 WBC (Bld) 0.0 % 0-5 [facility] Glucose [Mass/Vol] 139 mg/dL 74-106 [facility] Comment on above: Fasting Glucose resu lt greater than or equal to 126 mg/dL suggests DIABETES MELLITUS per A.D.A. criteria. Neutrophils (Bld) [#/Vol] 10.9 10*3/uL 2.0-7.7 [facility] Neutrophils/100 WBC (Bld) 87.1 % 47-70 [facility] Potassium [Moles/Vol] 4.0 mmol/L 3.5-5.1 [facility] Protein [Mass/Vol] 7.1 g/dL 6.4-8.2 [facility] Sodium [Moles/Vol] 140 mmol/L 136-145 [facility] WBC (Bld) [#/Vol] 12.5 10*3/uL 4.4-11.0 [facility] Blood erythrocytes count (nu mber/volume)Ordered By: Dr. Burns on 08-17-2022 RBC (Bld) [#/Vol] 4.41 10*6/uL 4.6-6.2 [facility] Blood hemoglobin measurement (mass/volume)Ordered By: Dr. Burns on 08-17-2022 Hemoglobin (Bld) [Mass/Vol] 13.3 g/dL 13.0-16.5 [facility] Blood lymphocytes/100 leukoc ytesOrdered By: Dr. Burns on 08-17-2022 Lymphocytes/100 WBC (Bld) 10.5 % 19-41 [facility] Blood monocytes/100 leukocyt esOrdered By: Dr. Burns on 08-17-2022 Monocytes/100 WBC (Bld) 1.2 % 0-10 [facility] Blood platelet mean volumeOr dered By: Dr. Burns on 08-17-2022 Platelet mean volume (Bld) [Entitic vol] 10.8 fL 6.2-12.0 [facility] Determination of erythrocyte mean corpuscular volume (MCV)Ordered By: Dr. Burns on 08-17-2022 MCV (RBC) [Entitic vol] 88.2 fL 80-94 [facility] Hematocrit Auto (Bld) [Volum e fraction]Ordered By: Dr. Burns on 08-17-2022 Hematocrit (Bld) [Volume fraction] 38.9 % 40-54 [facility] Laboratory - Chemistry and C hemistry - challengeOrdered By: Dr. Burns on 08-17-2022 ALP [Catalytic activity/Vol] 107 U/L 45-117 [facility] ALT [Catalytic activity/Vol] 26 U/L 16-61 [facility] CO2 [Moles/Vol] 24.0 mmol/L 21.0-32.0 [facility] Globulin (S) [Mass/Vol] 3.9 g/dL 2.2-4.2 [facility] Urea nitrogen/Creatinine [Mass ratio] 15.8 mg/mg 10-20 [facility] Laboratory - Hematology and Cell countsOrdered By: Dr. Burns on 08-17-2022 Erythrocyte distribution width (RBC) [Entitic vol] 42.3 fL 35.1-43.9 [facility] Erythrocyte distribution width (RBC) [Ratio] 13.1 % 11.6-14.6 [facility] Immature granulocytes/100 WBC (Bld) 1.000 % 0.0-0.9 [facility] Comment on above: IG% - Immature Granu locytes (promyelocytes, myelocytes and metamyelocytes) > 1% indicates that a LEFT SHIFT is Present. MCH (RBC) [Entitic mass] 30.2 pg 27.0-32.0 [facility] Nucleated RBC/100 WBC (Bld) [Ratio] 0.2 % 0-5 [facility] MCHC Auto (RBC) [Mass/Vol]Or dered By: Dr. Burns on 08-17-2022 MCHC (RBC) [Mass/Vol] 34.2 g/dL 32-36 [facility] Comment on above: Delta: 32.4 on 08/16-1015 No Panel InformationOrdered By: Dr. Burns on 08-17-2022 Estimated Creatinine Clearance Calc 62.88 ml/min [facility] Estimated GFR (MDRD) Amer 82 mL/min >60 [facility] Comment on above: GFR Calc Estimated GFR (MDRD) Non-Af Amer 68 mL/min >60 [facility] Comment on above: Non- GFR Calc Platelets bldOrdered By: Dr. Burns on 08-17-2022 Platelets (Bld) [#/Vol] 268 10*3/uL 150-450 [facility] Serum or plasma albumin jerome urement (mass/volume)Ordered By: Dr. Burns on 08-17-2022 Albumin [Mass/Vol] 3.2 g/dL 3.2-5.0 [facility] Serum or plasma albumin/glob ulin mass ratioOrdered By: Dr. Burns on 08-17-2022 Albumin/Globulin [Mass ratio] 0.8 {ratio} 0.9-2.4 [facility] Serum or plasma calcium jerome urement (mass/volume)Ordered By: Dr. Burns on 08-17-2022 Calcium [Mass/Vol] 8.7 mg/dL 8.5-10.1 [facility] Serum or plasma creatinine m easurement (mass/volume)Ordered By: Dr. Burns on 08-17-2022 Creatinine [Mass/Vol] 1.14 mg/dL 0.70-1.30 [facility] Comment on above: The validity of the calculated GFR & GFRAA in patients over 70 years has not been determined. Clinical correlation is essential. Serum or plasma urea nitroge n measurement (mass/volume)Ordered By: Dr. Burns on 08-17-2022 Urea nitrogen [Mass/Vol] 18 mg/dL 7-18 [facility] Thin prep Papanicolaou smear with manual screeningOrdered By: Dr. Burns on 08-17-2022 Thin prep Papanicolaou smear with manual screening 14 U/L 15-37 [facility] Thin prep Papanicolaou smear with manual screening 9 5-15 [facility] Absolute lymphocyte counton 08-16-2022 Lymphocytes Auto (Unsp spec) [#/Vol] 2.26 10*3/uL 0.83-4.51 [facility] Work Phone: Basophil percentageon 2022 Basophils/100 WBC (Bld) 0.8 % 0-1 [facility] Work Phone: Chloride [Moles/Vol] 111 mmol/L 98-107 [facility] Work Phone: Eosinophils/100 WBC (Bld) 6.3 % 0-5 [facility] Work Phone: Glucose [Mass/Vol] 131 mg/dL 74-106 [facility] Work Phone: Comment on above: Fasting Glucose resu lt greater than or equal to 126 mg/dL suggests DIABETES MELLITUS per A.D.A. criteria. Neutrophils (Bld) [#/Vol] 6.3 10*3/uL 2.0-7.7 [facility] Work Phone: Neutrophils/100 WBC (Bld) 60.3 % 47-70 [facility] Work Phone: [phone] Potassium [Moles/Vol] 4.1 mmol/L 3.5-5.1 [facility] Work Phone: [phone] Sodium [Moles/Vol] 143 mmol/L 136-145 [facility] Work Phone: [phone] WBC (Bld) [#/Vol] 10.4 10*3/uL 4.4-11.0 [facility] Work Phone: Bilirubin Test strip Ql (U)O rdered By: Dr. Burns on 08-16-2022 Bilirubin Ql (U) Negative Negative [facility] Blood erythrocytes count (nu mber/volume)on 08-16-2022 RBC (Bld) [#/Vol] 4.64 10*6/uL 4.6-6.2 [facility] Work Phone: Blood hemoglobin measurement (mass/volume)on 08-16-2022 Hemoglobin (Bld) [Mass/Vol] 13.6 g/dL 13.0-16.5 [facility] Work Phone: Blood lymphocytes/100 leukoc yteson 08-16-2022 Lymphocytes/100 WBC (Bld) 21.8 % 19-41 [facility] Work Phone: [phone] Blood monocytes/100 leukocyt eson 08-16-2022 Monocytes/100 WBC (Bld) 9.9 % 0-10 [facility] Work Phone: [phone] Blood platelet mean volumeon 08-16-2022 Platelet mean volume (Bld) [Entitic vol] 10.9 fL 6.2-12.0 [facility] Work Phone: COVID-19 virus antigen assay Ordered By: Dr. Lin on 08-16-2022 SARS-CoV-2 (COVID-19) Ag IA.rapid Ql (Resp) [facility] Determination of erythrocyte mean corpuscular volume (MCV)on 08-16-2022 MCV (RBC) [Entitic vol] 90.5 fL 80-94 [facility] Work Phone: Hematocrit Auto (Bld) [Volum e fraction]on 08-16-2022 Hematocrit (Bld) [Volume fraction] 42.0 % 40-54 [facility] Work Phone: Ketones Test strip Ql (U)Ord ered By: Dr. Burns on 08-16-2022 Ketones Ql (U) Negative Negative [facility] Laboratory - Chemistry and C hemistry - challengeon 08-16-2022 CO2 [Moles/Vol] 26.0 mmol/L 21.0-32.0 [facility] Work Phone: Urea nitrogen/Creatinine [Mass ratio] 11.8 mg/mg 10-20 [facility] Work Phone: Laboratory - Hematology and Cell countson 08-16-2022 Erythrocyte distribution width (RBC) [Entitic vol] 43.0 fL 35.1-43.9 [facility] Work Phone: Erythrocyte distribution width (RBC) [Ratio] 13.2 % 11.6-14.6 [facility] Work Phone: Immature granulocytes/100 WBC (Bld) 0.900 % 0.0-0.9 [facility] Work Phone: Comment on above: IG% - Immature Granu locytes (promyelocytes, myelocytes and metamyelocytes) > 1% indicates that a LEFT SHIFT is Present. MCH (RBC) [Entitic mass] 29.3 pg 27.0-32.0 [facility] Work Phone: Nucleated RBC/100 WBC (Bld) [Ratio] 0 % 0-5 [facility] Work Phone: Laboratory - Microbiology an d Antimicrobial susceptibilityOrdered By: Dr. Burns on 08-16-2022 SARS-CoV-2 (COVID-19) RNA PAMELA+probe Ql (Unsp spec) Not detected Not Detect [facility] Comment on above: Normal Reference Ran ge: Not DetectedMethod:(RT-PCR) real-time reverse transcriptase PCRLuminex CINTHIA Instrument*The Food and Drug Administration (FDA) has issued an Emergency Use Authorization (EAU) for the CINTHIA SARS-CoV-2 Assay for the rapid detection of the virus that causes COVID-19. This test has been validated, but the FDAs independent review of this validation is pending.*Negative results do not preclude infection and should not be used as the sole basis for treatment or patient management. Optimum specimen types and timing for peak viral levels during infections caused by SARS-CoV-2 have not been determined. Collection of multiple specimens from the same patient may be necessary to detect the virus. The possibility of a false negative result should be considered if the patient has clinical presentation or has had recent exposure. MCHC Auto (RBC) [Mass/Vol]on 08-16-2022 MCHC (RBC) [Mass/Vol] 32.4 g/dL 32-36 [facility] Work Phone: [phone] Nitrite Test strip Ql (U)Ord ered By: Dr. Burns on 08-16-2022 Nitrite Ql (U) Negative Negative [facility] No Panel InformationOrdered By: Dr. Lin on 08-16-2022 D-Dimer Quantitative (PE/DVT) 0.31 FEU/ug/m 0.27-0.49 [facility] Comment on above: NORMAL D-Dimer level (<0.50) indicates no DVT or PE. No Panel Informationon 08-16 Estimated Creatinine Clearance Calc 56.44 ml/min [facility] Work Phone: Estimated GFR (MDRD) Amer 73 mL/min >60 [facility] Work Phone: Comment on above: GFR Calc Estimated GFR (MDRD) Non-Af Amer 60 mL/min >60 [facility] Work Phone: Comment on above: Non- GFR Calc Platelets bldon 08-16-2022 Platelets (Bld) [#/Vol] 302 10*3/uL 150-450 [facility] Work Phone: Protein Test strip Ql (U)Ord ered By: Dr. Burns on 08-16-2022 Protein Ql (U) 30 mg/dl Negative [facility] Serum or plasma calcium jerome urement (mass/volume)on 08-16-2022 Calcium [Mass/Vol] 9.0 mg/dL 8.5-10.1 [facility] Work Phone: Serum or plasma creatinine m easurement (mass/volume)on 08-16-2022 Creatinine [Mass/Vol] 1.27 mg/dL 0.70-1.30 [facility] Work Phone: Comment on above: The validity of the calculated GFR & GFRAA in patients over 70 years has not been determined. Clinical correlation is essential. Serum or plasma urea nitroge n measurement (mass/volume)on 08-16-2022 Urea nitrogen [Mass/Vol] 15 mg/dL 7-18 [facility] Work Phone: Thin prep Papanicolaou smear with manual screeningon 08-16-2022 Thin prep Papanicolaou smear with manual screening 6 5-15 [facility] Work Phone: Urine blood detectionOrdered By: Dr. Burns on 08-16-2022 RBC Ql (U) Negative Negative [facility] Urine clarityOrdered By: Dr. Burns on 08-16-2022 Clarity (U) Clear Clear [facility] Urine color determinationOrd ered By: Dr. Burns on 08-16-2022 Color (U) Yellow Yellow [facility] Urine glucose detectionOrder ed By: Dr. Burns on 08-16-2022 Glucose Ql (U) Normal mg/dl Normal [facility] Urine leukocyte esterase det ection by dipstickOrdered By: Dr. Burns on 08-16-2022 Leukocyte esterase Test strip Ql (U) Negative Negative [facility] Urine pHOrdered By: Dr. Roque thornton on 08-16-2022 pH (U) 6.5 [pH] 5.0 - 8.0 [facility] Urine specific gravity measu rementOrdered By: Dr. Burns on 08-16-2022 Specific gravity (U) [Rel density] 1.010 1.002-1.030 [facility] Urobilinogen Auto test strip Ql (U)Ordered By: Dr. Burns on 08-16-2022 Urobilinogen Ql (U) Normal mg/dl Normal [facility] Iron measurement (mass/mass) on 08-30-2021 Iron (Unsp spec) [Mass/Mass] 49 ug/dL 65-175 [facility] Work Phone: [phone] Laboratory - Chemistry and C hemistry - challengeon 08-30-2021 Albumin [Mass/Vol] 3.0 g/dL [facility] Work Phone: [phone] Cobalamin (Vitamin B12) [Mass/Vol] 458 pg/mL 211-911 [facility] Work Phone: [phone] No Panel Informationon 08-30 Addendum Document Comment: [facility] Work Phone: [phone] Comment on above: SPE SHOWS DECREASED TOTAL PROTEIN.Performed at: [facility] [place] [id number] Director: Efraín De Los Santos PhD, Phone: [phone] [id number] 0.2 g/dL [facility] Work Phone: [id number] 0.6 g/dL [facility] Work Phone: Gamma Globulins 0.9 g/dL [facility] Work Phone: [phone] Total Iron Binding Capacity 338 ug/dL 250-450 [facility] Work Phone: [phone] Protein Fractions Elph [Inte rp]on 08-30-2021 Protein Fractions [Interp] Comment [facility] Work Phone: [phone] Comment on above: Protein electrophore sis scan will follow via computer,mail, or senior recruiter delivery. Serum albumin to globulin ra epi by protein electrophoresison 08-30-2021 Albumin/Globulin Elph [Mass ratio] 1.1 [facility] Work Phone: [phone] Serum globulin measurement ( mass/volume)on 08-30-2021 Globulin (S) [Mass/Vol] 2.8 g/dL [facility] Work Phone: Serum or plasma beta globuli n measurement by electrophoresis (mass/volume)on 08-30-2021 Beta globulin Elph [Mass/Vol] 1.0 g/dL [facility] Work Phone: [phone] Serum or plasma ferritin talita surement (mass/volume)on 08-30-2021 Ferritin [Mass/Vol] 20 ng/mL 26-388 [facility] Work Phone: [phone] Serum or plasma folate measu rement (mass/volume)on 08-30-2021 Folate [Mass/Vol] 24.10 ng/mL 3.1-55.4 [facility] Work Phone: [phone] Thin prep Papanicolaou smear with manual screeningon 08-30-2021 Thin prep Papanicolaou smear with manual screening See comment [facility] Work Phone: [phone] Comment on above: Result: Not Observed Total protein bloodon 2021 Protein [Mass/Vol] 5.8 g/dL [facility] Work Phone: No Panel Informationon 08-23 SARS-CoV-2 Antigen (Rapid) [facility] Work Phone: Absolute lymphocyte counton 08-22-2021 Lymphocytes Auto (Unsp spec) [#/Vol] 2.42 10*3/uL 0.83-4.51 [facility] Work Phone: Basophil percentageon 2021 Basophils/100 WBC (Bld) 0.3 % 0-1 [facility] Work Phone: Chloride [Moles/Vol] 106 mmol/L 98-107 [facility] Work Phone: [phone] Eosinophils/100 WBC (Bld) 4.0 % 0-5 [facility] Work Phone: [phone] Glucose [Mass/Vol] 80 mg/dL 74-106 [facility] Work Phone: Neutrophils (Bld) [#/Vol] 6.8 10*3/uL 2.0-7.7 [facility] Work Phone: Neutrophils/100 WBC (Bld) 62.0 % 47-70 [facility] Work Phone: [phone] Potassium [Moles/Vol] 4.1 mmol/L 3.5-5.1 [facility] Work Phone: [phone] Sodium [Moles/Vol] 141 mmol/L 136-145 [facility] Work Phone: [phone] WBC (Bld) [#/Vol] 10.9 10*3/uL 4.4-11.0 [facility] Work Phone: [phone] Blood erythrocytes count (nu mber/volume)on 08-22-2021 RBC (Bld) [#/Vol] 3.94 10*6/uL 4.6-6.2 [facility] Work Phone: [phone] Blood hemoglobin measurement (mass/volume)on 08-22-2021 Hemoglobin (Bld) [Mass/Vol] 11.7 g/dL 13.0-16.5 [facility] Work Phone: [phone] Blood lymphocytes/100 leukoc yteson 08-22-2021 Lymphocytes/100 WBC (Bld) 22.2 % 19-41 [facility] Work Phone: [phone] Blood monocytes/100 leukocyt eson 08-22-2021 Monocytes/100 WBC (Bld) 10.0 % 0-10 [facility] Work Phone: [phone] Blood platelet mean volumeon 08-22-2021 Platelet mean volume (Bld) [Entitic vol] 10.1 fL 6.2-12.0 [facility] Work Phone: [phone] Determination of erythrocyte mean corpuscular volume (MCV)on 08-22-2021 MCV (RBC) [Entitic vol] 91.9 fL 80-94 [facility] Work Phone: Hematocrit Auto (Bld) [Volum e fraction]on 08-22-2021 Hematocrit (Bld) [Volume fraction] 36.2 % 40-54 [facility] Work Phone: [phone] Laboratory - Chemistry and C hemistry - challengeon 08-22-2021 CO2 [Moles/Vol] 30.0 mmol/L 21.0-32.0 [facility] Work Phone: [phone] Urea nitrogen/Creatinine [Mass ratio] 18.9 mg/mg 10-20 [facility] Work Phone: [phone] Laboratory - Hematology and Cell countson 08-22-2021 Erythrocyte distribution width (RBC) [Entitic vol] 54.1 fL 35.1-43.9 [facility] Work Phone: [phone] Erythrocyte distribution width (RBC) [Ratio] 16.0 % 11.6-14.6 [facility] Work Phone: [phone] Immature granulocytes/100 WBC (Bld) 1.500 % 0.0-0.9 [facility] Work Phone: [phone] Comment on above: IG% - Immature Granu locytes (promyelocytes, myelocytes and metamyelocytes) > 1% indicates that a LEFT SHIFT is Present. MCH (RBC) [Entitic mass] 29.7 pg 27.0-32.0 [facility] Work Phone: [phone] Nucleated RBC/100 WBC (Bld) [Ratio] 0 % 0-5 [facility] Work Phone: [phone] MCHC Auto (RBC) [Mass/Vol]on 08-22-2021 MCHC (RBC) [Mass/Vol] 32.3 g/dL 32-36 [facility] Work Phone: [phone] Panel Informationon 08-22 Estimated Creatinine Clearance Calc 85.49 ml/min [facility] Work Phone: [phone] Estimated GFR (MDRD) Amer 116 mL/min >60 [facility] Work Phone: [phone] Comment on above: GFR Calc Estimated GFR (MDRD) Non-Af Amer 96 mL/min >60 [facility] Work Phone: [phone] Comment on above: Non- GFR Calc Platelets bldon 08-22-2021 Platelets (Bld) [#/Vol] 283 10*3/uL 150-450 [facility] Work Phone: [phone] Serum or plasma calcium jerome urement (mass/volume)on 08-22-2021 Calcium [Mass/Vol] 8.9 mg/dL 8.5-10.1 [facility] Work Phone: [phone] Serum or plasma creatinine m easurement (mass/volume)on 08-22-2021 Creatinine [Mass/Vol] 0.85 mg/dL 0.70-1.30 [facility] Work Phone: [phone] Comment on above: The validity of the calculated GFR & GFRAA in patients over 70 years has not been determined. Clinical correlation is essential. Serum or plasma urea nitroge n measurement (mass/volume)on 08-22-2021 Urea nitrogen [Mass/Vol] 16 mg/dL 02-19 [facility] Work Phone: [phone] Thin prep Papanicolaou smear with manual screeningon 08-22-2021 Thin prep Papanicolaou smear with manual screening 5 - [facility] Work Phone: [phone] Lower GI hemoglobin IA Ql (S tl)on 08-19-2021 Stool Occult Blood (KATARINA) Positive [facility] Work Phone: [phone] Basophil percentageon 2021 Bilirubin [Mass/Vol] 0.60 mg/dL 0.20-1.00 [facility] Work Phone: [phone] Comment on above: For patients on eltr ombopag therapy, use of Dimension [place] TBIL is not recommended. Cholesterol [Mass/Vol] 109 mg/dL <200 [facility] Work Phone: [phone] Comment on above: <200 mg/dL Desirable 200-240 mg/dL Borderline >240 mg/dL High Risk Protein [Mass/Vol] 6.1 g/dL 6.4-8.2 [facility] Work Phone: [phone] Triglyceride [Mass/Vol] 116 mg/dL [facility] Work Phone: [phone] Comment on above: The drugs N-Acetylcy steine and Metamizole may falsely depress this assay.Serum Triglycerides Reference Interval Normal <150 mg/dL Borderline high 150 - 199 mg/dL High 200 - 499 mg/dL Very High > or = 500 mg/dL Laboratory - Chemistry and C hemistry - challengeon 08-17-2021 ALP [Catalytic activity/Vol] 110 U/L 45-117 [facility] Work Phone: ALT [Catalytic activity/Vol] 23 U/L 16-61 [facility] Work Phone: Globulin (S) [Mass/Vol] 3.3 g/dL 2.2-4.2 [facility] Work Phone: [phone] Panel Informationon 08-17 Thyroid Stimulating Hormone (TSH) 2.25 uIU/mL 0.358-3.74 [facility] Work Phone: [phone] Serum or plasma albumin jerome urement (mass/volume)on 08-17-2021 Albumin [Mass/Vol] 2.8 g/dL 3.2-5.0 [facility] Work Phone: [phone] Serum or plasma albumin/glob ulin mass ratioon 08-17-2021 Albumin/Globulin [Mass ratio] 0.8 {ratio} 0.9-2.4 [facility] Work Phone: [phone] Serum or plasma cholesterol in HDL measurement (mass/volume)on 08-17-2021 Cholesterol in HDL [Mass/Vol] 33 mg/dL [facility] Work Phone: Comment on above: The drugs N-Acetylcy steine and Metamizole may falsely depress this assay. Reference Range HDL <40 mg/dL Low HDL Cholesterol HDL >or= 60 mg/dL High HDL Cholesterol Serum or plasma cholesterol in VLDL measurement (mass/volume)on 08-17-2021 Cholesterol in VLDL [Mass/Vol] 23 mg/dL 5-40 [facility] Work Phone: [phone] Serum or plasma low density lipoprotein (LDL) cholesterol measurement (mass/volume)on 08-17-2021 Cholesterol in LDL [Mass/Vol] 53 mg/dL 0-130 [facility] Work Phone: [phone] Thin prep Papanicolaou smear with manual screeningon 08-17-2021 Thin prep Papanicolaou smear with manual screening 12 U/L 15-37 [facility] Work Phone: Whole blood hemoglobin A1c/t otal hemoglobin ratio (mass fraction)on 08-17-2021 HbA1c (Bld) [Mass fraction] 5.2 % 3.8-5.6 [facility] Work Phone: Comment on above: Normal < 5.7 % Predi abetic 5.7 - 6.4 % Diabetic >or= 6.5 % Please note range changes. Basophil percentageon 2021 Basophil percentage 0-5 SEEN /hpf [facility] Work Phone: Bilirubin Test strip Ql (U)o n 08-16-2021 Bilirubin Ql (U) Negative Negative [facility] Work Phone: Glucose Glucometer (BldC) [M ass/Vol]on 08-16-2021 Glucose [Mass/Vol] 106 mg/dL 70-110 [facility] Work Phone: Comment on above: MANAGEMENT OF PATIEN T CARE PER NURSING PROTOCOL Hyaline casts LM.LPF (Urine sed) [#/Area]on 08-16-2021 Hyaline casts (Urine sed) [#/Area] 5 /[LPF] [facility] Work Phone: INR in Blood by Coagulation assayon 08-16-2021 INR Coag (Bld) [Relative time] 1.2 {INR} [facility] Work Phone: Ketones Test strip Ql (U)on 08-16-2021 Ketones Ql (U) Negative Negative [facility] Work Phone: Laboratory - Chemistry and C hemistry - challengeon 08-16-2021 Magnesium [Mass/Vol] 2.4 mg/dL 1.6-2.6 [facility] Work Phone: Laboratory - Coagulationon 0 08-16-2021 aPTT Coag (Bld) [Time] 35.0 s 24.1-36.2 [facility] Work Phone: PT Coag (PPP) [Time] 14.5 s 11.7-14.9 [facility] Work Phone: Mucus LM Ql (Urine sed)on Mucus Ql (Urine sed) 0 SEEN /hpf [facility] Work Phone: Nitrite Test strip Ql (U)on 08-16-2021 Nitrite Ql (U) Negative Negative [facility] Work Phone: No Panel Informationon 08-16 Troponin I High Sensitivity 9 pg/mL 3.0-78.0 [facility] Work Phone: Comment on above: Please Note: New Deja t Units and Gender Specific Reference Ranges. For more information see Policy Stat Procedure [place] High Sensitivity Troponin (TNIH) and attachments. Protein Test strip Ql (U)on 08-16-2021 Protein Ql (U) 30 mg/dl Negative [facility] Work Phone: Squamous epithelial cells de tection in urine sediment by light microscopyon 08-16-2021 Epithelial cells.squamous LM Ql (Urine sed) 0 SEEN /hpf [facility] Work Phone: Urine blood detectionon 08-05 RBC Ql (U) Negative Negative [facility] Work Phone: RBC Ql (U) 0 SEEN /hpf [facility] Work Phone: Urine clarityon 08-16-2021 Clarity (U) Clear Clear [facility] Work Phone: Urine color determinationon 08-16-2021 Color (U) Yellow Yellow [facility] Work Phone: Urine glucose detectionon Glucose Ql (U) Normal mg/dl Normal [facility] Work Phone: Urine leukocyte esterase det ection by dipstickon 08-16-2021 Leukocyte esterase Test strip Ql (U) 25 /ul Negative [facility] Work Phone: Urine pHon 08-16-2021 pH (U) 6.5 [pH] [facility] Work Phone: [phone] Urine sediment bacteria coun t by microscopy (number/high power field)on 08-16-2021 Bacteria LM.HPF (Urine sed) [#/Area] 0 /[HPF] None Seen [facility] Work Phone: Urine specific gravity measu rementon 08-16-2021 Specific gravity (U) [Rel density] 1.015 [facility] Work Phone: Urobilinogen Auto test strip Ql (U)on 08-16-2021 Urobilinogen Ql (U) 1 mg/dl Normal [facility] Work Phone: Basic Panelon 12-03-2017 Creatinine mass conc 1.05 mg/dL Normal 0.67-1.17 [facility] Comment on above: Performed By: #### P 8 #### [facility] [address] [address] Urea nitrogen mass conc 18 mg/dL Normal 7-18 [facility] Comment on above: Performed By: #### P 8 #### [facility] [address] [address] Anion gap molar conc 12 mmol/L Normal 8-16 [facility] Comment on above: Performed By: #### P 8 #### [facility] [address] [address] Calcium mass conc 9.0 mg/dL Normal 8.5-10.1 [facility] Comment on above: Performed By: #### P 8 #### [facility] [address] [address] CO2 molar conc 25 mmol/L Normal 21-32 [facility] Comment on above: Performed By: #### P 8 #### [facility] [address] [address] Glucose mass conc 89 mg/dL Normal 70-99 [facility] Comment on above: Performed By: #### P 8 #### [facility] [address] [address] Chloride molar conc 110 mmol/L High 98-107 [facility] Comment on above: Performed By: #### P 8 #### [place] [address] Potassium molar conc 4.3 mmol/L Normal 3.5-5.1 [facility] Comment on above: Performed By: #### P 8 #### [facility] [address] [address] Sodium molar conc 143 mmol/L Normal 136-145 [facility] Comment on above: Performed By: #### P 8 #### [facility] [address] [address] Hemogramon 12-03-2017 Erythrocyte distribution width Ratio (RBC) 13.5 % Normal 11.6-14.4 [facility] Comment on above: Performed By: #### C BC1 #### [facility] [address] [address] Hematocrit Volume Fraction (Bld) 38.3 % Low 40.1-51.0 [facility] Comment on above: Performed By: #### C BC1 #### [place] [address] Hemoglobin mass conc (Bld) 12.2 g/dL Low 13.7-17.5 [facility] Comment on above: Performed By: #### C BC1 #### [facility] [address] [address] MCH Entitic mass (RBC) 27.6 pg Normal 25.7-32.2 [facility] Comment on above: Performed By: #### C BC1 #### [place] [address] MCHC mass conc (RBC) 31.9 % Low 32.3-36.5 [facility] Comment on above: Performed By: #### C BC1 #### [facility] [address] [address] MCV Entitic volume (RBC) 86.7 fL Normal 83.2-95.6 [facility] Comment on above: Performed By: #### C BC1 #### [facility] [address] [address] Platelet mean volume Entitic volume (Bld) 11.0 fL Normal 8.7-12.0 [facility] Comment on above: Performed By: #### C BC1 #### [facility] [address] [address] Platelets #/vol (Bld) 319 thou/cmm Normal 141-365 [facility] Comment on above: Performed By: #### C BC1 #### [facility] [address] [address] RBC #/vol (Bld) 4.42 mil/cmm Low 4.63-6.08 [facility] Comment on above: Performed By: #### C BC1 #### [facility] [address] [address] RDW SD 42.2 fl Normal 36.1-45.8 [facility] Comment on above: Performed By: #### C BC1 #### [facility] [address] [address] WBC #/vol (Bld) 10.23 thou/cmm High 4.23-9.07 [facility] Comment on above: Performed By: #### C BC1 #### [facility] [address] [address] MDRD GFRon 12-03-2017 GFR/1.73 sq M predicted among non-blacks MDRD vol rate/area (S/P/Bld) mL/min/{1.73_m2} Normal >60mL/min/1 .73m2 [facility] Comment on above: Result Comment: If t he patient is , multiply the result by 1.210. Performed By: #### G FR #### [facility] [address] [address] Protimeon 12-03-2017 INR Coag RelTime (PPP) 0.99 {INR} Normal [facility] Comment on above: Result Comment: Peter dard Therapy 2.0-3.0 High Dose 2.5-3.5 Performed By: #### P T #### [facility] [address] [address] Prothrombin time (PT) Coag time (PPP) 10.5 s Normal 9.3-11.9 [facility] Comment on above: Performed By: #### P T #### [facility] [address] [address] COVID-19 virus antigen assay SARS-CoV-2 (COVID-19) Ag IA.rapid Ql (Resp) [facility] Work Phone: Vital Signs Date Time Vital Sign Value Performing Clinician Facility 03-02-2025 13:00-0400 Diastolic blood pressure 80 mm[Hg] Mariano Karuna BUILDING EQUIPMENT INSPECTOR.OPERATIONS LABEL CLERK Work Phone: [facility] 03-02-2025 13:00-0400 Heart rate 60 /min Mariano Karuna BUILDING EQUIPMENT INSPECTOR.OPERATIONS LABEL CLERK Work Phone: [facility] 03-02-2025 13:00-0400 Respiratory rate 20 /min Mariano Karuna BUILDING EQUIPMENT INSPECTOR.OPERATIONS LABEL CLERK Work Phone: [facility] 03-02-2025 13:00-0400 Systolic blood pressure 142 mm[Hg] Mariano Karuna BUILDING EQUIPMENT INSPECTOR.OPERATIONS LABEL CLERK Work Phone: [facility] 02-01-2025 09:42-0400 Body height 177.8 cm Robin Johansen MD Work Phone: [facility] 02-01-2025 09:42-0400 Body mass index (BMI) [Ratio] 28.41 kg/m2 Robin Johansen MD Work Phone: [facility] 02-01-2025 09:42-0400 Body weight 89.81 kg Robin Johansen MD Work Phone: [facility] Comment on above: home weight 02-01-2025 09:42-0400 Diastolic blood pressure 80 mm[Hg] Robin Johansen MD Work Phone: [facility] 02-01-2025 09:42-0400 Heart rate 43 /min Robin Johansen MD Work Phone: [facility] 02-01-2025 09:42-0400 Respiratory rate 16 /min Robin Johansen MD Work Phone: [facility] 02-01-2025 09:42-0400 SaO2% (BldA) [Mass fraction] 94 % Robin Johansen MD Work Phone: [facility] 02-01-2025 09:42-0400 Systolic blood pressure 122 mm[Hg] Robin Johansen MD Work Phone: [facility] 01-14-2025 14:01-0400 Body mass index (BMI) [Ratio] 27.55 kg/m2 Jaci Arroyo MD Work Phone: [facility] 01-14-2025 14:01-0400 Body weight 87.1 kg Jaci Arroyo MD Work Phone: [facility] 01-14-2025 14:01-0400 Diastolic blood pressure 74 mm[Hg] Jaci Arroyo MD Work Phone: [facility] 01-14-2025 14:01-0400 Heart rate 52 /min Jaci Arroyo MD Work Phone: [facility] 01-14-2025 14:01-0400 Respiratory rate 18 /min Jaci Arroyo MD Work Phone: [facility] 01-14-2025 14:01-0400 SaO2% (BldA) [Mass fraction] 95 % Jaci Arroyo MD Work Phone: [facility] 01-14-2025 14:01-0400 Systolic blood pressure 124 mm[Hg] Jaci Arroyo MD Work Phone: [facility] 12-03-2024 12:46-0400 Body mass index (BMI) [Ratio] 27.98 kg/m2 Consuelo Farooq APRN.OPERATIONS LABEL CLERK Work Phone: [facility] 12-03-2024 12:46-0400 Body weight 88.45 kg Consuelo Farooq APRN.OPERATIONS LABEL CLERK Work Phone: [facility] 12-03-2024 12:46-0400 Diastolic blood pressure 54 mm[Hg] Consuelo Farooq APRN.OPERATIONS LABEL CLERK Work Phone: [facility] 12-03-2024 12:46-0400 Heart rate 59 /min Consuelo Farooq APRN.OPERATIONS LABEL CLERK Work Phone: [facility] 12-03-2024 12:46-0400 SaO2% (BldA) [Mass fraction] 90 % Consuelo Farooq BUILDING EQUIPMENT INSPECTOR.OPERATIONS LABEL CLERK Work Phone: [facility] 12-03-2024 12:46-0400 Systolic blood pressure 121 mm[Hg] Consuelo Farooq BUILDING EQUIPMENT INSPECTOR.OPERATIONS LABEL CLERK Work Phone: [facility] 11-10-2024 16:14-0400 Diastolic blood pressure 67 mm[Hg] Deanne Cruz DO Work Phone: [facility] 11-10-2024 16:14-0400 Heart rate 50 /min Deanne Cruz DO Work Phone: [facility] 11-10-2024 16:14-0400 SaO2% (BldA) [Mass fraction] 92 % Deanne Cruz DO Work Phone: [facility] 11-10-2024 16:14-0400 Systolic blood pressure 121 mm[Hg] Deanne Cruz DO Work Phone: [facility] 10-07-2024 15:13-0500 Diastolic blood pressure 60 mm[Hg] Jessie Reyesf BUILDING EQUIPMENT INSPECTOR.OPERATIONS LABEL CLERK Work Phone: [facility] 10-07-2024 15:13-0500 Heart rate 48 /min Jessie Harmon BUILDING EQUIPMENT INSPECTOR.OPERATIONS LABEL CLERK Work Phone: [facility] 10-07-2024 15:13-0500 Respiratory rate 16 /min Jessie Raphaelhof BUILDING EQUIPMENT INSPECTOR.OPERATIONS LABEL CLERK Work Phone: [facility] 10-07-2024 15:13-0500 SaO2% (BldA) [Mass fraction] 93 % Jessie Harmon BUILDING EQUIPMENT INSPECTOR.OPERATIONS LABEL CLERK Work Phone: [facility] 10-07-2024 15:13-0500 Systolic blood pressure 130 mm[Hg] Jessie Reyesf BUILDING EQUIPMENT INSPECTOR.OPERATIONS LABEL CLERK Work Phone: [facility] 10-06-2024 13:36-0500 Body mass index (BMI) [Ratio] 27.84 kg/m2 Earl Click BUILDING EQUIPMENT INSPECTOR.OPERATIONS LABEL CLERK Work Phone: [facility] 10-06-2024 13:36-0500 Body weight 88 kg Earl Click BUILDING EQUIPMENT INSPECTOR.OPERATIONS LABEL CLERK Work Phone: [facility] 10-06-2024 13:36-0500 Diastolic blood pressure 66 mm[Hg] Earl Click BUILDING EQUIPMENT INSPECTOR.OPERATIONS LABEL CLERK Work Phone: [facility] 10-06-2024 13:36-0500 Heart rate 49 /min Earl Click BUILDING EQUIPMENT INSPECTOR.OPERATIONS LABEL CLERK Work Phone: [facility] 10-06-2024 13:36-0500 SaO2% (BldA) [Mass fraction] 90 % Earl Click BUILDING EQUIPMENT INSPECTOR.OPERATIONS LABEL CLERK Work Phone: [facility] 10-06-2024 13:36-0500 Systolic blood pressure 105 mm[Hg] Earl Click BUILDING EQUIPMENT INSPECTOR.OPERATIONS LABEL CLERK Work Phone: [facility] 09-18-2024 11:59-0500 Body temperature 97.88 [degF] RICARDO MARIE BUILDING EQUIPMENT INSPECTOR-OPERATIONS LABEL CLERK [facility] 09-18-2024 11:59-0500 Diastolic Blood Pressure Non-Invasive 64 mm[Hg] RICARDO MARIE BUILDING EQUIPMENT INSPECTOR-OPERATIONS LABEL CLERK [facility] 09-18-2024 11:59-0500 Heart rate 74 /min RICARDO MARIE BUILDING EQUIPMENT INSPECTOR-OPERATIONS LABEL CLERK [facility] 09-18-2024 11:59-0500 Reason For Taking VItal Signs RICARDO MARIE BUILDING EQUIPMENT INSPECTOR-OPERATIONS LABEL CLERK [facility] 09-18-2024 11:59-0500 Respiratory rate 18 /min RICARDO MARIE BUILDING EQUIPMENT INSPECTOR-OPERATIONS LABEL CLERK [facility] 09-18-2024 11:59-0500 Systolic Blood Pressure Non-Invasive 155 mm[Hg] RICARDO MARIE BUILDING EQUIPMENT INSPECTOR-OPERATIONS LABEL CLERK [facility] 09-18-2024 06:38-0500 Body temperature 98.06 [degF] RICARDO KAPPER BUILDING EQUIPMENT INSPECTOR-OPERATIONS LABEL CLERK [facility] 09-18-2024 06:38-0500 Diastolic Blood Pressure Non-Invasive 63 mm[Hg] RICARDO KAPPER BUILDING EQUIPMENT INSPECTOR-OPERATIONS LABEL CLERK [facility] 09-18-2024 06:38-0500 Heart rate 60 /min RICARDO KAPPER BUILDING EQUIPMENT INSPECTOR-OPERATIONS LABEL CLERK [facility] 09-18-2024 06:38-0500 Reason For Taking VItal Signs RICARDOZay MARIE BUILDING EQUIPMENT INSPECTOR-OPERATIONS LABEL CLERK [facility] 09-18-2024 06:38-0500 Respiratory rate 18 /min RICARDO KAPPER BUILDING EQUIPMENT INSPECTOR-OPERATIONS LABEL CLERK [facility] 09-18-2024 06:38-0500 Systolic Blood Pressure Non-Invasive 118 mm[Hg] RICARDO KAPPER BUILDING EQUIPMENT INSPECTOR-OPERATIONS LABEL CLERK [facility] 09-18-2024 04:00-0500 Body temperature 97.52 [degF] RICARDO KAPPER BUILDING EQUIPMENT INSPECTOR-OPERATIONS LABEL CLERK [facility] 09-18-2024 04:00-0500 Diastolic Blood Pressure Non-Invasive 71 mm[Hg] RICARDO LATANYAER BUILDING EQUIPMENT INSPECTOR-OPERATIONS LABEL CLERK [facility] 09-18-2024 04:00-0500 Heart rate 89 /min RICARDO KAPPER BUILDING EQUIPMENT INSPECTOR-OPERATIONS LABEL CLERK [facility] 09-18-2024 04:00-0500 Systolic Blood Pressure Non-Invasive 134 mm[Hg] RICARDO KAPPER BUILDING EQUIPMENT INSPECTOR-OPERATIONS LABEL CLERK [facility] 09-17-2024 03:15-0500 Heart rate 74 /min RICARDO KAPPER BUILDING EQUIPMENT INSPECTOR-OPERATIONS LABEL CLERK [facility] 09-16-2024 23:32-0500 Heart rate 54 /min RICARDO KAPPER BUILDING EQUIPMENT INSPECTOR-OPERATIONS LABEL CLERK [facility] 09-16-2024 18:53-0500 Heart rate 72 /min RICARDO KAPPER BUILDING EQUIPMENT INSPECTOR-OPERATIONS LABEL CLERK [facility] 09-16-2024 18:15-0500 Heart rate 67 /min RICARDO KAPPER BUILDING EQUIPMENT INSPECTOR-OPERATIONS LABEL CLERK [facility] 09-15-2024 20:15-0500 Body height 177.8 cm RICARDO KAPPER BUILDING EQUIPMENT INSPECTOR-OPERATIONS LABEL CLERK [facility] 09-15-2024 20:15-0500 Body weight 89.5 kg RICARDO KAPPER BUILDING EQUIPMENT INSPECTOR-OPERATIONS LABEL CLERK [facility] 09-15-2024 20:15-0500 Body weight 28.31 kg/m2 RICARDO KAPPER BUILDING EQUIPMENT INSPECTOR-OPERATIONS LABEL CLERK [facility] 09-15-2024 16:52-0500 Blood Pressure Location RICARDO KAPPER BUILDING EQUIPMENT INSPECTOR-OPERATIONS LABEL CLERK [facility] 09-15-2024 16:52-0500 Blood Pressure Method RICARDO KAPPER BUILDING EQUIPMENT INSPECTOR-OPERATIONS LABEL CLERK [facility] 09-15-2024 14:15-0500 Blood Pressure Location RICARDO KAPPER BUILDING EQUIPMENT INSPECTOR-OPERATIONS LABEL CLERK [facility] 09-15-2024 14:15-0500 Blood Pressure Method RICAROD KAPPER BUILDING EQUIPMENT INSPECTOR-OPERATIONS LABEL CLERK [facility] 09-15-2024 14:15-0500 Body height 177.8 cm RICARDO KAPPER BUILDING EQUIPMENT INSPECTOR-OPERATIONS LABEL CLERK [facility] 09-15-2024 14:15-0500 Body weight 86.4 kg RICARDO MARIE BUILDING EQUIPMENT INSPECTOR-OPERATIONS LABEL CLERK [facility] 09-03-2024 13:55-0500 Body height 177.8 cm Joycelyn Woodruff MD Work Phone: [facility] 09-03-2024 13:55-0500 Body mass index (BMI) [Ratio] 26.69 kg/m2 Joycelyn Woodruff MD Work Phone: [facility] 09-03-2024 13:55-0500 Body weight 84.37 kg Joycelyn Woodruff MD Work Phone: [facility] 09-03-2024 13:55-0500 Diastolic blood pressure 64 mm[Hg] Joycelyn Woodruff MD Work Phone: [facility] 09-03-2024 13:55-0500 Heart rate 55 /min Joycelyn Woodruff MD Work Phone: [facility] 09-03-2024 13:55-0500 SaO2% (BldA) [Mass fraction] 92 % Joycelyn Woodruff MD Work Phone: [facility] 09-03-2024 13:55-0500 Systolic blood pressure 128 mm[Hg] Joycelyn Woodruff MD Work Phone: [facility] 07-22-2024 11:39-0500 Body mass index (BMI) [Ratio] 26.69 kg/m2 Michelle Webb PA-C Work Phone: [facility] 07-22-2024 11:39-0500 Body weight 84.37 kg Michelle Webb PA-C Work Phone: [facility] 07-22-2024 11:39-0500 Diastolic blood pressure 76 mm[Hg] Michelle Webb PA-C Work Phone: [facility] 07-22-2024 11:39-0500 Heart rate 50 /min Michelle Webb PA-C Work Phone: [facility] 07-22-2024 11:39-0500 SaO2% (BldA) [Mass fraction] 100 % Michelle TIDWELL-C Work Phone: [facility] 07-22-2024 11:39-0500 Systolic blood pressure 131 mm[Hg] Michelle Webb PA-C Work Phone: [facility] 07-13-2024 13:42-0500 Body height 177.8 cm Jessie Tannhof BUILDING EQUIPMENT INSPECTOR.OPERATIONS LABEL CLERK Work Phone: [facility] 07-13-2024 13:42-0500 Body mass index (BMI) [Ratio] 26.69 kg/m2 Jessie Tannhof BUILDING EQUIPMENT INSPECTOR.OPERATIONS LABEL CLERK Work Phone: [facility] 07-13-2024 13:42-0500 Body weight 84.37 kg Jessie Tannhof BUILDING EQUIPMENT INSPECTOR.OPERATIONS LABEL CLERK Work Phone: [facility] 07-13-2024 13:42-0500 Diastolic blood pressure 69 mm[Hg] Jessie Tannhof BUILDING EQUIPMENT INSPECTOR.OPERATIONS LABEL CLERK Work Phone: [facility] 07-13-2024 13:42-0500 Heart rate 48 /min Jessie Tannhof BUILDING EQUIPMENT INSPECTOR.OPERATIONS LABEL CLERK Work Phone: [facility] 07-13-2024 13:42-0500 Systolic blood pressure 121 mm[Hg] Jessie Tannhof BUILDING EQUIPMENT INSPECTOR.OPERATIONS LABEL CLERK Work Phone: [facility] 07-01-2024 10:16-0500 Body height 177.8 cm Jessie Tannhof BUILDING EQUIPMENT INSPECTOR.OPERATIONS LABEL CLERK Work Phone: [facility] 07-01-2024 10:16-0500 Diastolic blood pressure 62 mm[Hg] Jessie Tannhof BUILDING EQUIPMENT INSPECTOR.OPERATIONS LABEL CLERK Work Phone: [facility] 07-01-2024 10:16-0500 Heart rate 77 /min Jessie Tannhof BUILDING EQUIPMENT INSPECTOR.OPERATIONS LABEL CLERK Work Phone: [facility] 07-01-2024 10:16-0500 Respiratory rate 12 /min Jessie Tannhof BUILDING EQUIPMENT INSPECTOR.OPERATIONS LABEL CLERK Work Phone: [facility] 07-01-2024 10:16-0500 SaO2% (BldA) [Mass fraction] 97 % Jessie Bria BUILDING EQUIPMENT INSPECTOR.OPERATIONS LABEL CLERK Work Phone: [facility] 07-01-2024 10:16-0500 Systolic blood pressure 110 mm[Hg] Jessie Raphaelparadise BUILDING EQUIPMENT INSPECTOR.OPERATIONS LABEL CLERK Work Phone: [facility] 05-20-2024 09:28-0400 Body mass index (BMI) [Ratio] 26.59 kg/m2 Michelle Queener PA-C Work Phone: [facility] 05-20-2024 09:28-0400 Body weight 84.05 kg Michelle Queener PA-C Work Phone: [facility] 05-20-2024 09:28-0400 Diastolic blood pressure 77 mm[Hg] Michelle Queener PA-C Work Phone: [facility] 05-20-2024 09:28-0400 Heart rate 54 /min Michelle Queener PA-C Work Phone: [facility] 05-20-2024 09:28-0400 Respiratory rate 18 /min Michelle Queener PA-C Work Phone: [facility] 05-20-2024 09:28-0400 SaO2% (BldA) [Mass fraction] 93 % Michelle Queener PA-C Work Phone: [facility] 05-20-2024 09:28-0400 Systolic blood pressure 126 mm[Hg] Michelle Queener PA-C Work Phone: [facility] 04-03-2024 16:01-0400 Body mass index (BMI) [Ratio] 26.57 kg/m2 Jaci Arroyo MD Work Phone: [facility] 04-03-2024 16:01-0400 Body weight 84 kg Jaci Arroyo MD Work Phone: [facility] 04-03-2024 16:01-0400 Diastolic blood pressure 70 mm[Hg] Jaci Arroyo MD Work Phone: [facility] 04-03-2024 16:01-0400 Heart rate 68 /min Jaci Arroyo MD Work Phone: [facility] 04-03-2024 16:01-0400 Respiratory rate 16 /min Jaci Arroyo MD Work Phone: [facility] 04-03-2024 16:01-0400 Systolic blood pressure 120 mm[Hg] Jaci Arroyo MD Work Phone: [facility] 03-09-2024 15:33-0400 Diastolic blood pressure 60 mm[Hg] Dania Aj Jr., MD Work Phone: [facility] 03-09-2024 15:33-0400 Heart rate 54 /min Dania Aj Jr., MD Work Phone: [facility] 03-09-2024 15:33-0400 Respiratory rate 18 /min Dania Aj Jr., MD Work Phone: [facility] 03-09-2024 15:33-0400 SaO2% (BldA) [Mass fraction] 96 % Dania Aj Jr., MD Work Phone: [facility] 03-09-2024 15:33-0400 Systolic blood pressure 142 mm[Hg] Dania Aj Jr., MD Work Phone: [facility] 03-02-2024 14:40-0400 Diastolic blood pressure 69 mm[Hg] Robin Johansen MD Work Phone: [facility] 03-02-2024 14:40-0400 Heart rate 49 /min Robin Johansen MD Work Phone: [facility] 03-02-2024 14:40-0400 SaO2% (BldA) [Mass fraction] 95 % Robin Johansen MD Work Phone: [facility] 03-02-2024 14:40-0400 Systolic blood pressure 131 mm[Hg] Robin Johansen MD Work Phone: [facility] 02-24-2024 15:50-0400 Body height 177.8 cm Lacy Lai MD Work Phone: [facility] 02-24-2024 15:50-0400 Body mass index (BMI) [Ratio] 26.4 kg/m2 Lacy Lai MD Work Phone: [facility] 02-24-2024 15:50-0400 Body temperature 97.3 [degF] Lacy Lai MD Work Phone: [facility] 02-24-2024 15:50-0400 Body weight 83.46 kg Lacy Lai MD Work Phone: [facility] 02-24-2024 15:50-0400 Diastolic blood pressure 62 mm[Hg] Lacy Lai MD Work Phone: [facility] 02-24-2024 15:50-0400 Heart rate 62 /min Lacy Lai MD Work Phone: [facility] 02-24-2024 15:50-0400 Respiratory rate 22 /min Lacy Lai MD Work Phone: [facility] 02-24-2024 15:50-0400 SaO2% (BldA) [Mass fraction] 95 % Lacy Lai MD Work Phone: [facility] 02-24-2024 15:50-0400 Systolic blood pressure 112 mm[Hg] Lacy Lai MD Work Phone: [facility] 12-31-2023 14:36-0400 Body mass index (BMI) [Ratio] 27.73 kg/m2 Jaci Arroyo MD Work Phone: [facility] 12-31-2023 14:36-0400 Body weight 85.19 kg Jaci Arroyo MD Work Phone: [facility] 12-31-2023 14:36-0400 Diastolic blood pressure 68 mm[Hg] Jaci Arroyo MD Work Phone: [facility] 12-31-2023 14:36-0400 Heart rate 62 /min Jaci Arroyo MD Work Phone: [facility] 12-31-2023 14:36-0400 Respiratory rate 18 /min Jaci Arroyo MD Work Phone: [facility] 12-31-2023 14:36-0400 Systolic blood pressure 116 mm[Hg] Jaci Arroyo MD Work Phone: [facility] 12-16-2023 15:13-0400 Body mass index (BMI) [Ratio] 27.75 kg/m2 Dena Hortensia BUILDING EQUIPMENT INSPECTOR.OPERATIONS LABEL CLERK Work Phone: [facility] 12-16-2023 15:13-0400 Body weight 85.23 kg Dena Hortensia BUILDING EQUIPMENT INSPECTOR.OPERATIONS LABEL CLERK Work Phone: [facility] 12-16-2023 15:13-0400 Diastolic blood pressure 58 mm[Hg] Dena Hortensai BUILDING EQUIPMENT INSPECTOR.OPERATIONS LABEL CLERK Work Phone: [facility] 12-16-2023 15:13-0400 Heart rate 45 /min Dena Hortensia BUILDING EQUIPMENT INSPECTOR.OPERATIONS LABEL CLERK Work Phone: [facility] 12-16-2023 15:13-0400 Respiratory rate 18 /min Dena Hortensia BUILDING EQUIPMENT INSPECTOR.OPERATIONS LABEL CLERK Work Phone: [facility] 12-16-2023 15:13-0400 SaO2% (BldA) [Mass fraction] 95 % Dena Hortensia BUILDING EQUIPMENT INSPECTOR.OPERATIONS LABEL CLERK Work Phone: [facility] 12-16-2023 15:13-0400 Systolic blood pressure 127 mm[Hg] Dena Hortensia BUILDING EQUIPMENT INSPECTOR.OPERATIONS LABEL CLERK Work Phone: [facility] 10-01-2023 16:06-0500 Diastolic blood pressure 55 mm[Hg] Deanne Cruz DO Work Phone: [facility] 10-01-2023 16:06-0500 Heart rate 56 /min Deanne Cruz DO Work Phone: [facility] 10-01-2023 16:06-0500 SaO2% (BldA) [Mass fraction] 93 % Deanne Cruz DO Work Phone: [facility] 10-01-2023 16:06-0500 Systolic blood pressure 121 mm[Hg] Deanne Cruz DO Work Phone: [facility] 09-27-2023 14:18-0500 Body weight 85.09 kg Jaci Arroyo MD Work Phone: [facility] 09-27-2023 14:18-0500 Diastolic blood pressure 68 mm[Hg] Jaci Arroyo MD Work Phone: [facility] 09-27-2023 14:18-0500 Heart rate 70 /min Jaci Arroyo MD Work Phone: [facility] 09-27-2023 14:18-0500 Respiratory rate 18 /min Jaci Arroyo MD Work Phone: [facility] 09-27-2023 14:18-0500 Systolic blood pressure 112 mm[Hg] Jaci Arroyo MD Work Phone: [facility] 08-09-2023 20:51-0500 Body temperature 98.8 [degF] Dr. Jaci Arroyo Work Phone: [facility] 08-09-2023 20:51-0500 Diastolic blood pressure 50 mm[Hg] Dr. Jaci Arroyo Work Phone: [facility] 08-09-2023 20:51-0500 Heart rate 80 /min Dr. Jaci Arroyo Work Phone: [facility] 08-09-2023 20:51-0500 Inhaled oxygen flow rate 2 L/min Dr. Jaci Arroyo Work Phone: [facility] 08-09-2023 20:51-0500 Respiratory rate 20 /min Dr. Jaci Arroyo Work Phone: [facility] 08-09-2023 20:51-0500 SaO2% (BldA) [Mass fraction] 96 % Dr. Jaci Arroyo Work Phone: [facility] 08-09-2023 20:51-0500 Systolic blood pressure 151 mm[Hg] Dr. Jaci Arroyo Work Phone: [facility] 08-07-2023 14:17-0500 Body height 177.[address] Jaci rAroyo Work Phone: [facility] 08-07-2023 14:17-0500 Body mass index (BMI) [Ratio] 27.1 kg/m2 Dr. Jaci Arroyo Work Phone: [facility] 08-07-2023 14:17-0500 Body weight 85.[address] Jaci Arroyo Work Phone: [facility] 07-26-2023 11:50-0500 Body height 177.8 cm MATTHEW AVALOS MD [facility] 07-26-2023 11:50-0500 Body temperature 98.42 [degF] MATTHEW AVALOS MD [facility] 07-26-2023 11:50-0500 Body weight 86.4 kg MATTHEW AVALOS MD [facility] 07-26-2023 11:50-0500 Diastolic Blood Pressure Non-Invasive 60 mm[Hg] MATTHEW AVALSO MD [facility] 07-26-2023 11:50-0500 Heart rate 52 /min MATTHEW AVALOS MD [facility] 07-26-2023 11:50-0500 Respiratory rate 18 /min MATTHEW AVALOS MD [facility] 07-26-2023 11:50-0500 Systolic Blood Pressure Non-Invasive 153 mm[Hg] MATTHEW AVALOS MD [facility] 07-15-2023 10:16-0500 Body height 175.3 cm Pac 8 Work Phone: [facility] 07-15-2023 10:16-0500 Body temperature 97.5 [degF] Pac 8 Work Phone: [facility] 07-15-2023 10:16-0500 Body weight 86.64 kg Pac 8 Work Phone: [facility] 07-15-2023 10:16-0500 Diastolic blood pressure 53 mm[Hg] Pac 8 Work Phone: [facility] 07-15-2023 10:16-0500 Heart rate 50 /min [facility] 8 Work Phone: [facility] 07-15-2023 10:16-0500 SaO2% (BldA) [Mass fraction] 95 % [facility] 8 Work Phone: [facility] 07-15-2023 10:16-0500 Systolic blood pressure 121 mm[Hg] [facility] 8 Work Phone: [facility] 07-08-2023 11:02-0500 Body weight 84.37 kg Robin Johansen MD Work Phone: [facility] 07-08-2023 11:02-0500 Diastolic blood pressure 63 mm[Hg] Robin Johansen MD Work Phone: [facility] 07-08-2023 11:02-0500 Heart rate 49 /min Robin Johansen MD Work Phone: [facility] 07-08-2023 11:02-0500 SaO2% (BldA) [Mass fraction] 93 % Robin Johansen MD Work Phone: [facility] 07-08-2023 11:02-0500 Systolic blood pressure 116 mm[Hg] Robin Johansen MD Work Phone: [facility] 06-19-2023 14:13-0500 Body height 177.8 cm SANTI Sandoval MD Work Phone: [facility] 06-19-2023 14:13-0500 Body temperature 97.9 [degF] SANTI Sandoval MD Work Phone: [facility] 06-19-2023 14:13-0500 Diastolic blood pressure 52 mm[Hg] SANTI Sandoval MD Work Phone: [facility] 06-19-2023 14:13-0500 Heart rate 57 /min SANTI Sandoval MD Work Phone: [facility] 06-19-2023 14:13-0500 SaO2% (BldA) [Mass fraction] 97 % SANTI Sandoval MD Work Phone: [facility] 06-19-2023 14:13-0500 Systolic blood pressure 148 mm[Hg] SANTI Sandoval MD Work Phone: [facility] 06-18-2023 15:14-0500 Diastolic blood pressure 65 mm[Hg] Deanne Cruz DO Work Phone: [facility] 06-18-2023 15:14-0500 Heart rate 50 /min Deanne Cruz DO Work Phone: [facility] 06-18-2023 15:14-0500 SaO2% (BldA) [Mass fraction] 95 % Deanne Cruz DO Work Phone: [facility] 06-18-2023 15:14-0500 Systolic blood pressure 119 mm[Hg] Deanne Cruz DO Work Phone: [facility] 06-11-2023 15:04-0500 Body weight 85.73 kg Jaci Arroyo MD Work Phone: [facility] 06-11-2023 15:04-0500 Diastolic blood pressure 66 mm[Hg] Jaci Arroyo MD Work Phone: [facility] 06-11-2023 15:04-0500 Heart rate 60 /min Jaci Arroyo MD Work Phone: [facility] 06-11-2023 15:04-0500 Respiratory rate 16 /min Jaci Arroyo MD Work Phone: [facility] 06-11-2023 15:04-0500 Systolic blood pressure 116 mm[Hg] Jaci Arroyo MD Work Phone: [facility] 05-29-2023 06:07-0400 Body mass index (BMI) [Ratio] 26.5 kg/m2 Dr. Jaci Arroyo Work Phone: [facility] 05-29-2023 06:07-0400 Body temperature 97.2 [degF] Dr. Jaci Arroyo Work Phone: [facility] 05-29-2023 06:07-0400 Body weight 83.[address] Jaci Arroyo Work Phone: [facility] 05-29-2023 06:07-0400 Diastolic blood pressure 68 mm[Hg] Dr. Jaci Arroyo Work Phone: [facility] 05-29-2023 06:07-0400 Heart rate 56 /min Dr. Jaci Arroyo Work Phone: [facility] 05-29-2023 06:07-0400 Respiratory rate 20 /min Dr. Jaci Arroyo Work Phone: [facility] 05-29-2023 06:07-0400 SaO2% (BldA) [Mass fraction] 97 % Dr. Jaci Arroyo Work Phone: [facility] 05-29-2023 06:07-0400 Systolic blood pressure 112 mm[Hg] Dr. Jaci Arroyo Work Phone: [facility] 05-21-2023 16:03-0400 Body height 177.8 cm Jorge Cardoso MD Work Phone: [facility] 05-21-2023 16:03-0400 Body temperature 98.4 [degF] Jorge Cardoso MD Work Phone: [facility] 05-21-2023 16:03-0400 Body weight 80.29 kg Jorge Cardoso MD Work Phone: [facility] 05-21-2023 16:03-0400 Diastolic blood pressure 52 mm[Hg] Jorge Cardoso MD Work Phone: [facility] 05-21-2023 16:03-0400 Heart rate 57 /min Jorge Cardoso MD Work Phone: [facility] 05-21-2023 16:03-0400 SaO2% (BldA) [Mass fraction] 94 % Jorge Cardoso MD Work Phone: [facility] 05-21-2023 16:03-0400 Systolic blood pressure 124 mm[Hg] Jorge Cardoso MD Work Phone: [facility] 04-19-2023 11:45-0400 Body temperature 98.4 [degF] Mariano Karuna BUILDING EQUIPMENT INSPECTOR.OPERATIONS LABEL CLERK Work Phone: [facility] 04-19-2023 11:45-0400 Body weight 76.66 kg Mariano Karuna BUILDING EQUIPMENT INSPECTOR.OPERATIONS LABEL CLERK Work Phone: [facility] 04-19-2023 11:45-0400 Diastolic blood pressure 42 mm[Hg] Mariano Karuna BUILDING EQUIPMENT INSPECTOR.OPERATIONS LABEL CLERK Work Phone: [facility] 04-19-2023 11:45-0400 Heart rate 45 /min Mariano Karuna BUILDING EQUIPMENT INSPECTOR.OPERATIONS LABEL CLERK Work Phone: [facility] 04-19-2023 11:45-0400 Respiratory rate 16 /min Mariano Karuna BUILDING EQUIPMENT INSPECTOR.OPERATIONS LABEL CLERK Work Phone: [facility] 04-19-2023 11:45-0400 SaO2% (BldA) [Mass fraction] 98 % Mariano Karuna BUILDING EQUIPMENT INSPECTOR.OPERATIONS LABEL CLERK Work Phone: [facility] 04-19-2023 11:45-0400 Systolic blood pressure 105 mm[Hg] Mariano Karuna BUILDING EQUIPMENT INSPECTOR.OPERATIONS LABEL CLERK Work Phone: [facility] 04-10-2023 13:30-0400 Diastolic blood pressure 58 mm[Hg] Jorge Cardoso MD Work Phone: [facility] 04-10-2023 13:30-0400 Heart rate 49 /min Jorge Cardoso MD Work Phone: [facility] 04-10-2023 13:30-0400 Respiratory rate 22 /min Jorge Cardoso MD Work Phone: [facility] 04-10-2023 13:30-0400 SaO2% (BldA) [Mass fraction] 94 % Jorge Cardoso MD Work Phone: [facility] 04-10-2023 13:30-0400 Systolic blood pressure 124 mm[Hg] Jorge Cardoso MD Work Phone: [facility] 04-10-2023 13:01-0400 Body temperature 96.8 [degF] Jorge Cardoso MD Work Phone: [facility] 04-05-2023 13:52-0400 Body height 182.9 cm Jorge Cardoso MD Work Phone: [facility] 04-05-2023 13:52-0400 Body temperature 98.91 [degF] Jorge Cardoso MD Work Phone: [facility] 04-05-2023 13:52-0400 Body weight 83.01 kg Jorge Cardoso MD Work Phone: [facility] 04-05-2023 13:52-0400 Diastolic blood pressure 72 mm[Hg] Jorge Cardoso MD Work Phone: [facility] 04-05-2023 13:52-0400 Heart rate 63 /min Jorge Cardoso MD Work Phone: [facility] 04-05-2023 13:52-0400 SaO2% (BldA) [Mass fraction] 96 % Jorge Cardoso MD Work Phone: [facility] 04-05-2023 13:52-0400 Systolic blood pressure 118 mm[Hg] Jorge Cardoso MD Work Phone: [facility] 03-21-2023 17:25-0400 Diastolic Blood Pressure Non-Invasive 46 1 MARIANO HOPKINS MD [facility] 03-21-2023 17:25-0400 Heart rate 69 /min MARIANO HOPKINS MD [facility] 03-21-2023 17:25-0400 Respiratory rate 16 /min MARIANO HOPKINS MD [facility] 03-21-2023 17:25-0400 Systolic Blood Pressure Non-Invasive 111 1 MARIANO HOPKINS MD [facility] 03-21-2023 15:06-0400 Body height 178 cm MARIANO HOPKINS MD [facility] 03-21-2023 15:06-0400 Body weight 84 kg MARIANO HOPKINS MD [facility] 03-21-2023 15:06-0400 Diastolic Blood Pressure Non-Invasive 58 1 MARIANO HOPKINS MD [facility] 03-21-2023 15:06-0400 Heart rate 68 /min MARIANO HOPKISN MD [facility] 03-21-2023 15:06-0400 Respiratory rate 18 /min MARIANO HOPKINS MD [facility] 03-21-2023 15:06-0400 Systolic Blood Pressure Non-Invasive 120 1 MARIANO HOPKINS MD [facility] 03-12-2023 13:36-0400 Body height 172.7 cm Kimo Mcgrath MD Work Phone: [facility] 03-12-2023 13:36-0400 Body weight 83.46 kg Kimo Mcgrath MD Work Phone: [facility] 03-12-2023 13:36-0400 Diastolic blood pressure 60 mm[Hg] Kimo Mcgrath MD Work Phone: [facility] 03-12-2023 13:36-0400 Heart rate 66 /min Kimo Mcgrath MD Work Phone: [facility] 03-12-2023 13:36-0400 Respiratory rate 14 /min Kimo Mcgrath MD Work Phone: [facility] 03-12-2023 13:36-0400 SaO2% (BldA) [Mass fraction] 97 % Kimo Mcgrath MD Work Phone: [facility] 03-12-2023 13:36-0400 Systolic blood pressure 108 mm[Hg] Kimo Mcgrath MD Work Phone: [facility] 03-12-2023 13:20-0400 Body height 172.7 cm Pulm Wstr Work Phone: [facility] 03-12-2023 13:20-0400 Body weight 83.46 kg Pulm Wstr Work Phone: [facility] 03-12-2023 13:20-0400 Heart rate 66 /min Pulm Wstr Work Phone: [facility] 03-12-2023 13:20-0400 Respiratory rate 14 /min Pulm Wstr Work Phone: [facility] 03-12-2023 13:20-0400 SaO2% (BldA) [Mass fraction] 97 % Pulm Wstr Work Phone: [facility] 03-07-2023 15:34-0400 Body weight 83.37 kg Jaci Arroyo MD Work Phone: [facility] 03-07-2023 15:34-0400 Diastolic blood pressure 60 mm[Hg] Jaci Arroyo MD Work Phone: [facility] 03-07-2023 15:34-0400 Heart rate 68 /min Jaci Arroyo MD Work Phone: [facility] 03-07-2023 15:34-0400 Respiratory rate 16 /min Jaci Arroyo MD Work Phone: [facility] 03-07-2023 15:34-0400 Systolic blood pressure 110 mm[Hg] Jaci Arroyo MD Work Phone: [facility] 12-04-2022 16:04-0400 Body weight 78.93 kg Jaci Arroyo MD Work Phone: [facility] 12-04-2022 16:04-0400 Diastolic blood pressure 70 mm[Hg] Jaci Arroyo MD Work Phone: [facility] 12-04-2022 16:04-0400 Heart rate 56 /min Jaci Arroyo MD Work Phone: [facility] 12-04-2022 16:04-0400 Respiratory rate 16 /min Jaci Arroyo MD Work Phone: [facility] 12-04-2022 16:04-0400 SaO2% (BldA) [Mass fraction] 94 % Jaci Arroyo MD Work Phone: [facility] 12-04-2022 16:04-0400 Systolic blood pressure 120 mm[Hg] Jaci Arroyo MD Work Phone: [facility] 11-19-2022 10:44-0400 Diastolic Blood Pressure Non-Invasive 58 1 KYLIE BLUM BUILDING EQUIPMENT INSPECTOR-OPERATIONS LABEL CLERK [facility] 11-19-2022 10:44-0400 Heart rate 57 /min KYLIE BLUM BUILDING EQUIPMENT INSPECTOR-OPERATIONS LABEL CLERK [facility] 11-19-2022 10:44-0400 Reason For Taking VItal Signs KYLIE BLUM BUILDING EQUIPMENT INSPECTOR-OPERATIONS LABEL CLERK [facility] 11-19-2022 10:44-0400 Respiratory rate 18 /min KYLIE BLUM BUILDING EQUIPMENT INSPECTOR-OPERATIONS LABEL CLERK [facility] 11-19-2022 10:44-0400 Systolic Blood Pressure Non-Invasive 118 1 KYLIE BLUM BUILDING EQUIPMENT INSPECTOR-OPERATIONS LABEL CLERK [facility] 11-19-2022 08:36-0400 Heart rate 61 /min KYLIE BLUM BUILDING EQUIPMENT INSPECTOR-OPERATIONS LABEL CLERK [facility] 11-19-2022 07:33-0400 Respiratory rate 18 /min KYLIE BLUM BUILDING EQUIPMENT INSPECTOR-OPERATIONS LABEL CLERK [facility] 11-19-2022 06:25-0400 Body temperature 97.34 [degF] KYLIE PENGN BUILDING EQUIPMENT INSPECTOR-OPERATIONS LABEL CLERK [facility] 11-19-2022 06:25-0400 Diastolic Blood Pressure Non-Invasive 70 1 KYLIE BLMU BUILDING EQUIPMENT INSPECTOR-OPERATIONS LABEL CLERK [facility] 11-19-2022 06:25-0400 Heart rate 56 /min KYLIE BLUM BUILDING EQUIPMENT INSPECTOR-OPERATIONS LABEL CLERK [facility] 11-19-2022 06:25-0400 Reason For Taking VItal Signs KYLIE BLUM BUILDING EQUIPMENT INSPECTOR-OPERATIONS LABEL CLERK [facility] 11-19-2022 06:25-0400 Respiratory rate 18 /min KYLIE BLUM BUILDING EQUIPMENT INSPECTOR-OPERATIONS LABEL CLERK [facility] 11-19-2022 06:25-0400 Systolic Blood Pressure Non-Invasive 114 1 KYLIE BLUM BUILDING EQUIPMENT INSPECTOR-OPERATIONS LABEL CLERK [facility] 11-19-2022 05:28-0400 Heart rate 57 /min KYLIE BLUM BUILDING EQUIPMENT INSPECTOR-OPERATIONS LABEL CLERK [facility] 11-19-2022 03:49-0400 Body temperature 97.88 [degF] KYLIE PENGN BUILDING EQUIPMENT INSPECTOR-OPERATIONS LABEL CLERK [facility] 11-19-2022 03:49-0400 Diastolic Blood Pressure Non-Invasive 55 1 KYLIE PENGN BUILDING EQUIPMENT INSPECTOR-OPERATIONS LABEL CLERK [facility] 11-19-2022 03:49-0400 Heart rate 71 /min KYLIE BLUM BUILDING EQUIPMENT INSPECTOR-OPERATIONS LABEL CLERK [facility] 11-19-2022 03:49-0400 Systolic Blood Pressure Non-Invasive 114 1 KYLIE BLUM BUILDING EQUIPMENT INSPECTOR-OPERATIONS LABEL CLERK [facility] 11-18-2022 23:21-0400 Heart rate 50 /min KYLIE BLUM BUILDING EQUIPMENT INSPECTOR-OPERATIONS LABEL CLERK [facility] 11-18-2022 23:08-0400 Body temperature 97.88 [degF] KYLIE BLUM BUILDING EQUIPMENT INSPECTOR-OPERATIONS LABEL CLERK [facility] 11-18-2022 23:08-0400 Heart rate 58 /min KYLIE BLUM BUILDING EQUIPMENT INSPECTOR-OPERATIONS LABEL CLERK [facility] 11-18-2022 18:13-0400 Heart rate 69 /min KYLIE BLUM BUILDING EQUIPMENT INSPECTOR-OPERATIONS LABEL CLERK [facility] 11-18-2022 17:51-0400 Body height 177 cm KYLIE BLUM BUILDING EQUIPMENT INSPECTOR-OPERATIONS LABEL CLERK [facility] 11-18-2022 17:51-0400 Body weight 82.4 kg KYLIE BLUM BUILDING EQUIPMENT INSPECTOR-OPERATIONS LABEL CLERK [facility] 11-18-2022 17:51-0400 Body weight 26.3 kg/m2 KYLIE BLUM BUILDING EQUIPMENT INSPECTOR-OPERATIONS LABEL CLERK [facility] 11-18-2022 17:42-0400 Reason For Taking VItal Signs KYLIE PENGJames BUILDING EQUIPMENT INSPECTOR-OPERATIONS LABEL CLERK [facility] 11-17-2022 11:10-0400 Body weight 83.01 kg Jaci Arroyo MD Work Phone: [facility] 11-17-2022 11:10-0400 Diastolic blood pressure 59 mm[Hg] Jaci Arroyo MD Work Phone: [facility] 11-17-2022 11:10-0400 Heart rate 64 /min Jaci Arroyo MD Work Phone: [facility] 11-17-2022 11:10-0400 Respiratory rate 16 /min Jaci Arroyo MD Work Phone: [facility] 11-17-2022 11:10-0400 SaO2% (BldA) [Mass fraction] 94 % Jaci Arroyo MD Work Phone: [facility] 11-17-2022 11:10-0400 Systolic blood pressure 90 mm[Hg] aJci Arroyo MD Work Phone: [facility] 11-15-2022 14:10-0400 SaO2% (BldA) [Mass fraction] 91 % Dr. Jaci Arroyo Work Phone: [facility] 11-15-2022 13:31-0400 Body temperature 98.8 [degF] Dr. Jaci Arroyo Work Phone: [facility] 11-15-2022 13:31-0400 Diastolic blood pressure 71 mm[Hg] Dr. Jaci Arroyo Work Phone: [facility] 11-15-2022 13:31-0400 Heart rate 62 /min Dr. Jaci Arroyo Work Phone: [facility] 11-15-2022 13:31-0400 Respiratory rate 16 /min Dr. Jaci Arroyo Work Phone: [facility] 11-15-2022 13:31-0400 Systolic blood pressure 132 mm[Hg] Dr. Jaci Arroyo Work Phone: [facility] 11-15-2022 12:25-0400 Inhaled oxygen flow rate 4 L/min Dr. Jaci Arroyo Work Phone: [facility] 11-12-2022 14:44-0400 Body height 177.[address] Jaci Arroyo Work Phone: [facility] 11-12-2022 14:44-0400 Body weight 88.[address] Jaci Arroyo Work Phone: 4(285)075-424104 [place] [address] 11-11-2022 15:30-0400 Body mass index (BMI) [Ratio] 28 kg/m2 Dr. Jaci Arroyo Work Phone: 0(523)671-184304 [place] [address] 11-11-2022 14:42-0400 Body temperature 98.2 [degF] Dr. Jaci Arroyo Work Phone: 1(047)204-847704 [place] [address] 11-11-2022 14:42-0400 Diastolic blood pressure 58 mm[Hg] Dr. Jaci Arroyo Work Phone: 5(662)687-859904 [place] [address] 11-11-2022 14:42-0400 Heart rate 50 /min Dr. Jaci Arroyo Work Phone: 9(968)979-460104 [place] [address] 11-11-2022 14:42-0400 Inhaled oxygen flow rate 3 L/min Dr. Jaci Arroyo Work Phone: 4(444)[phone] [place] [address] 11-11-2022 14:42-0400 Respiratory rate 18 /min Dr. Jaci Arroyo Work Phone: 5(469)034-987004 [place] [address] 11-11-2022 14:42-0400 SaO2% (BldA) [Mass fraction] 93 % Dr. Jaci Arroyo Work Phone: 5(594)431-534204 [place] [address] 11-11-2022 14:42-0400 Systolic blood pressure 128 mm[Hg] Dr. Jaci Arroyo Work Phone: 7(553)378-031204 [place] [address] 11-11-2022 13:14-0400 Body height 175.[address] Jaci Arroyo Work Phone: 9(812)553-090004 [place] [address] 11-11-2022 13:14-0400 Body mass index (BMI) [Ratio] 30.7 kg/m2 Dr. Jaci Arroyo Work Phone: 0(227)152-234204 [place] [address] 11-11-2022 13:14-0400 Body weight 94.[address] Jaci Arroyo Work Phone: 0(196)661-704904 [place] [address] 10-15-2022 15:51-0400 Body weight 87.09 kg Robin Johansen MD Work Phone: [facility] 10-15-2022 15:51-0400 Diastolic blood pressure 70 mm[Hg] Robin Johansen MD Work Phone: [facility] 10-15-2022 15:51-0400 Heart rate 72 /min Robin Johansen MD Work Phone: [facility] 10-15-2022 15:51-0400 SaO2% (BldA) [Mass fraction] 91 % Robin Johansen MD Work Phone: [facility] 10-15-2022 15:51-0400 Systolic blood pressure 118 mm[Hg] Robin Johansen MD Work Phone: [facility] 09-03-2022 11:08-0500 Body height 177.8 cm Robin Johansen MD Work Phone: [facility] 09-03-2022 11:08-0500 Body weight 88 kg Robin Johansen MD Work Phone: [facility] 09-03-2022 11:08-0500 Diastolic blood pressure 74 mm[Hg] Robin Johansen MD Work Phone: [facility] 09-03-2022 11:08-0500 Heart rate 58 /min Robin Johansen MD Work Phone: [facility] 09-03-2022 11:08-0500 Respiratory rate 16 /min Robin Johansen MD Work Phone: [facility] 09-03-2022 11:08-0500 SaO2% (BldA) [Mass fraction] 96 % Robin Johansen MD Work Phone: [facility] 09-03-2022 11:08-0500 Systolic blood pressure 150 mm[Hg] Robin Johansen MD Work Phone: [facility] 08-22-2022 07:07-0500 Body mass index (BMI) [Ratio] 28.5 kg/m2 Dr. Jaci Arroyo Work Phone: [facility] 08-22-2022 07:07-0500 Body temperature 97.6 [degF] Dr. Jaci Arroyo Work Phone: [facility] 08-22-2022 07:07-0500 Body weight 87.[address] Jaci Arroyo Work Phone: [facility] 08-22-2022 07:07-0500 Diastolic blood pressure 69 mm[Hg] Dr. Jaci Arroyo Work Phone: [facility] 08-22-2022 07:07-0500 Heart rate 44 /min Dr. Jaci Arroyo Work Phone: [facility] 08-22-2022 07:07-0500 Respiratory rate 16 /min Dr. Jaci Arroyo Work Phone: [facility] 08-22-2022 07:07-0500 SaO2% (BldA) [Mass fraction] 93 % Dr. Jaci Arroyo Work Phone: [facility] 08-22-2022 07:07-0500 Systolic blood pressure 112 mm[Hg] Dr. Jaci Arroyo Work Phone: [facility] 08-21-2022 14:42-0500 Body height 177.8 cm Desmond Ambriz PA-C Work Phone: [facility] 08-21-2022 14:42-0500 Body temperature 99.61 [degF] Desmond Ambriz PA-C Work Phone: [facility] 08-21-2022 14:42-0500 Body weight 88 kg Desmond Ambriz PA-C Work Phone: [facility] 08-21-2022 14:42-0500 Diastolic blood pressure 70 mm[Hg] Desmond Ambriz PA-C Work Phone: [facility] 08-21-2022 14:42-0500 Heart rate 64 /min Desmond Ambriz PA-C Work Phone: [facility] 08-21-2022 14:42-0500 Respiratory rate 18 /min Desmond Ambriz PA-C Work Phone: [facility] 08-21-2022 14:42-0500 SaO2% (BldA) [Mass fraction] 95 % Desmond Ambriz PA-C Work Phone: [facility] 08-21-2022 14:42-0500 Systolic blood pressure 122 mm[Hg] Desmond Ruizoney PA-C Work Phone: [facility] 08-17-2022 15:54-0500 Inhaled oxygen flow rate 2 L/min Dr. Jaci Arroyo Work Phone: [facility] 08-17-2022 14:27-0500 Heart rate 64 /min Dr. Jaci Arroyo Work Phone: [facility] 08-17-2022 14:27-0500 Respiratory rate 22 /min Dr. Jaci Arroyo Work Phone: [facility] 08-17-2022 14:27-0500 SaO2% (BldA) [Mass fraction] 93 % Dr. Jaci Arroyo Work Phone: [facility] 08-17-2022 13:52-0500 Body temperature 98.5 [degF] Dr. Jaci Arroyo Work Phone: [facility] 08-17-2022 13:52-0500 Diastolic blood pressure 62 mm[Hg] Dr. Jaci Arroyo Work Phone: [facility] 08-17-2022 13:52-0500 Systolic blood pressure 102 mm[Hg] Dr. Jaci Arroyo Work Phone: [facility] 08-17-2022 05:23-0500 Body weight 88.[address] Jaci Arroyo Work Phone: [facility] 08-16-2022 13:20-0500 Body height 175.[address] Jaci Arroyo Work Phone: [facility] Work Phone: 08-16-2022 13:20-0500 Body mass index (BMI) [Ratio] 28.8 kg/m2 Dr. Jaci Arroyo Work Phone: [facility] 08-16-2022 12:31-0500 Body temperature 98.1 [degF] Dr. Jaci Arroyo Work Phone: [facility] Work Phone: 08-16-2022 12:31-0500 Diastolic blood pressure 57 mm[Hg] Dr. Jaci Arroyo Work Phone: [facility] Work Phone: 08-16-2022 12:31-0500 Heart rate 44 /min Dr. Jaci Arroyo Work Phone: [facility] Work Phone: 08-16-2022 12:31-0500 Respiratory rate 17 /min Dr. Jaci Arroyo Work Phone: [facility] Work Phone: 08-16-2022 12:31-0500 SaO2% (BldA) [Mass fraction] 92 % Dr. Jaci Arroyo Work Phone: [facility] Work Phone: 08-16-2022 12:31-0500 Systolic blood pressure 148 mm[Hg] Dr. Jaci Arroyo Work Phone: [facility] Work Phone: 08-16-2022 10:02-0500 Body height 175.[address] Jaci Arroyo Work Phone: [facility] Work Phone: 08-16-2022 10:02-0500 Body mass index (BMI) [Ratio] 28.8 kg/m2 Dr. Jaci Arroyo Work Phone: [facility] Work Phone: 08-16-2022 10:02-0500 Body weight 88.[address] Jaci Arroyo Work Phone: [facility] Work Phone: 06-19-2022 13:29-0500 Body height 175.[address] Jaci Arroyo Work Phone: [facility] Work Phone: 06-19-2022 13:29-0500 Body weight 88.[address] Jaci Arroyo Work Phone: [facility] Work Phone: 06-19-2022 13:29-0500 Heart rate 56 /min Dr. Jaci Arroyo Work Phone: [facility] Work Phone: 06-19-2022 13:29-0500 SaO2% (BldA) [Mass fraction] 94 % Dr. Jaci Arroyo Work Phone: [facility] Work Phone: 05-29-2022 12:41-0400 Body mass index (BMI) [Ratio] 28.3 kg/m2 Dr. Jaci Arroyo Work Phone: [facility] Work Phone: 05-29-2022 12:41-0400 Body temperature 99.1 [degF] Dr. Jaci Arroyo Work Phone: [facility] Work Phone: 05-29-2022 12:41-0400 Body weight 87.[address] Jaci Arroyo Work Phone: [facility] Work Phone: 05-29-2022 12:41-0400 Diastolic blood pressure 76 mm[Hg] Dr. Jaci Arroyo Work Phone: [facility] Work Phone: 05-29-2022 12:41-0400 Heart rate 52 /min Dr. Jaci Arroyo Work Phone: [facility] Work Phone: 05-29-2022 12:41-0400 Respiratory rate 16 /min Dr. Jaci Arroyo Work Phone: [facility] Work Phone: 05-29-2022 12:41-0400 SaO2% (BldA) [Mass fraction] 93 % Dr. Jaci Arroyo Work Phone: [facility] Work Phone: 05-29-2022 12:41-0400 Systolic blood pressure 132 mm[Hg] Dr. Jaci Arroyo Work Phone: [facility] Work Phone: 04-19-2022 10:34-0400 Body height 175.3 cm Sabiha Stevens MD Work Phone: [facility] 04-19-2022 10:34-0400 Body weight 86.18 kg Sabiha Stevens MD Work Phone: [facility] 04-19-2022 10:34-0400 Diastolic blood pressure 70 mm[Hg] Sabiha Stevens MD Work Phone: [facility] 04-19-2022 10:34-0400 Heart rate 60 /min Sabiha Stevens MD Work Phone: [facility] 04-19-2022 10:34-0400 Respiratory rate 16 /min Sabiha Stevens MD Work Phone: [facility] 04-19-2022 10:34-0400 Systolic blood pressure 122 mm[Hg] Sabiha Stevens MD Work Phone: [facility] 01-24-2022 15:30-0400 Body weight 86.64 kg Jaci Arroyo MD Work Phone: [facility] 01-24-2022 15:30-0400 Diastolic blood pressure 78 mm[Hg] Jaci Arroyo MD Work Phone: [facility] 01-24-2022 15:30-0400 Heart rate 72 /min Jaci Arroyo MD Work Phone: [facility] 01-24-2022 15:30-0400 Respiratory rate 16 /min Jaci Arroyo MD Work Phone: [facility] 01-24-2022 15:30-0400 Systolic blood pressure 124 mm[Hg] Jaci Arroyo MD Work Phone: [facility] 11-10-2021 12:30-0400 Body height 175.[address] Jaci Arroyo Work Phone: [facility] Work Phone: 11-10-2021 12:30-0400 Body weight 87.[address] Jaci Arroyo Work Phone: [facility] Work Phone: 11-10-2021 12:30-0400 Heart rate 56 /min Dr. Jaci Arroyo Work Phone: [facility] Work Phone: 11-10-2021 12:30-0400 SaO2% (BldA) [Mass fraction] 93 % Dr. Jaci Arroyo Work Phone: [facility] Work Phone: 10-06-2021 08:38-0500 Body mass index (BMI) [Ratio] 28.9 kg/m2 Dr. Jaci Arroyo Work Phone: [facility] Work Phone: 10-06-2021 08:38-0500 Body temperature 98.6 [degF] Dr. Jaci Arroyo Work Phone: [facility] Work Phone: 10-06-2021 08:38-0500 Body weight 88.[address] Jaci Arroyo Work Phone: [facility] Work Phone: 10-06-2021 08:38-0500 Diastolic blood pressure 65 mm[Hg] Dr. Jaci Arroyo Work Phone: [facility] Work Phone: 10-06-2021 08:38-0500 Heart rate 60 /min Dr. Jaci Arroyo Work Phone: [facility] Work Phone: 10-06-2021 08:38-0500 Respiratory rate 17 /min Dr. Jaci Arroyo Work Phone: [facility] Work Phone: 10-06-2021 08:38-0500 SaO2% (BldA) [Mass fraction] 91 % Dr. Jaci Arroyo Work Phone: [facility] Work Phone: 10-06-2021 08:38-0500 Systolic blood pressure 117 mm[Hg] Dr. Jaci Arroyo Work Phone: [facility] Work Phone: 08-23-2021 14:20-0500 Body mass index (BMI) [Ratio] 27.9 kg/m2 Dr. Jaci Arroyo Work Phone: [facility] Work Phone: 08-23-2021 12:52-0500 Body temperature 97.8 [degF] Dr. Jaci Arroyo Work Phone: [facility] Work Phone: 08-23-2021 12:52-0500 Diastolic blood pressure 67 mm[Hg] Dr. Jaci Arroyo Work Phone: [facility] Work Phone: 08-23-2021 12:52-0500 Heart rate 72 /min Dr. Jaci Arroyo Work Phone: [facility] Work Phone: 08-23-2021 12:52-0500 Respiratory rate 18 /min Dr. Jaci Arroyo Work Phone: [facility] Work Phone: 08-23-2021 12:52-0500 SaO2% (BldA) [Mass fraction] 97 % Dr. Jaci Arroyo Work Phone: [facility] Work Phone: 08-23-2021 12:52-0500 Systolic blood pressure 152 mm[Hg] Dr. Jaci Arroyo Work Phone: [facility] Work Phone: 08-23-2021 05:00-0500 Body weight 85.[address] Jaci Arroyo Work Phone: [facility] Work Phone: Encounters Encounter Date Encounter Type Care Provider Facility Start: 03-08-2025 End: 03-08-2025 Telephone encounter Jaci Arroyo MD Work Phone: [facility] [place] Comment on above: Letter Start: 03-02-2025 End: 03-02-2025 ambulatory MARIANO LAURAIL Facility:[facility] [place] Start: 03-02-2025 End: 03-02-2025 Patient encounter procedure Mariano Beckman BUILDING EQUIPMENT INSPECTOR.OPERATIONS LABEL CLERK Work Phone: [facility] [place] Comment on above: Bilateral impacted c erumen (Primary Dx) Start: 02-18-2025 End: 02-18-2025 Telephone encounter Jaci Arroyo MD Work Phone: [facility] [place] Comment on above: Faxed to [address] Start: 02-15-2025 End: 02-17-2025 Telephone encounter Jaci Arroyo MD Work Phone: [facility] [place] Comment on above: Medication Request Medication Problem Start: 02-03-2025 End: 02-03-2025 Telephone encounter Jaci Arroyo MD Work Phone: Family [facility] [place] Comment on above: Patient Question Start: 02-01-2025 End: 02-01-2025 Patient encounter procedure Robin Johansen MD Work Phone: Cardiology Comment on above: Coronary artery dise ase involving [place] coronary artery of [place] heart without angina pectoris (Primary Dx); Paroxysmal atrial fibrillation (HCC); Essential hypertension; Mixed hyperlipidemia; Occlusion of left carotid artery; Sinus bradycardia Start: 02-01-2025 End: 02-01-2025 ambulatory ROBIN JOHANSEN Facility:[facility] [place] Start: 01-18-2025 End: 01-21-2025 ambulatory Earl Harrison APRN.OPERATIONS LABEL CLERK Work Phone: Pulmonary Medicine Start: 01-14-2025 End: 01-14-2025 Office outpatient visit 25 minutes Jaci Arroyo MD Work Phone: [facility] [place] Comment on above: Essential hypertensi on (Primary Dx); Cervicalgia; Anxiety; Hyperlipidemia, unspecified hyperlipidemia type; Seizure (HCC); Focal epilepsy (HCC); Centrilobular emphysema (HCC); Chronic respiratory failure with hypoxia (HCC); Chronic insomnia; Acute cough; Moderate recurrent major depression (HCC); CVA, old, hemiparesis (HCC); Stage 3a chronic kidney disease (HCC) Start: 01-14-2025 End: 01-14-2025 [facility] [place] Start: 12-31-2024 End: 12-31-2024 Telemedicine consultation with patient Joycelyn Woodruff MD Work Phone: Neurology Start: 12-31-2024 End: 12-31-2024 ambulatory Joycelyn Woodruff MD Work Phone: Neurology Comment on above: Seizure (HCC) (Prima ry Dx) Start: 12-26-2024 End: 01-07-2025 Telephone encounter Jaci Arroyo MD Work Phone: [facility] [place] Comment on above: Forms ([facility]) Start: 12-03-2024 End: 12-03-2024 Telephone encounter Jaci Arroyo MD Work Phone: [facility] [place] Comment on above: Patient Update Start: 12-03-2024 End: 12-03-2024 Patient encounter procedure Consuelo Farooq APRN.OPERATIONS LABEL CLERK Work Phone: [facility] [place] Comment on above: Acute cough (Primary Dx) Start: 12-03-2024 End: 12-03-2024 ambulatory JACI ARROYO Facility:[facility] [place] Start: 12-02-2024 End: 12-02-2024 Telephone encounter Jaci Arroyo MD Work Phone: [facility] [place] Comment on above: Patient Update Start: 11-27-2024 End: 01-16-2025 Telephone encounter Jaci Arroyo MD Work Phone: [facility] [place] Comment on above: Power Wheel Chair Start: 11-10-2024 End: 11-10-2024 Patient encounter procedure Deanne Cruz DO Work Phone: Vascular Surgery Comment on above: Occlusion of left ca rotid artery (Primary Dx); Subclavian artery stenosis, left Start: 11-10-2024 End: 11-10-2024 ambulatory JCAI ARROYO Facility:[facility] [place] Start: 10-22-2024 End: 10-22-2024 Telephone encounter Kimo Mcgrath MD Work Phone: Pulmonary Medicine Comment on above: Patient Update Start: 10-20-2024 End: 10-22-2024 Telephone encounter Earl Elise APRN.OPERATIONS LABEL CLERK Work Phone: Pulmonary Medicine Start: 10-16-2024 End: 10-16-2024 Telephone encounter Yessi Hough MD Work Phone: Neurology Comment on above: Medication Problem ( Patient's cut the Lyrica dose) Start: 10-14-2024 End: 10-14-2024 Telephone encounter Jaci Arroyo MD Work Phone: Family [facility] [place] Comment on above: Orders Start: 10-13-2024 End: 10-16-2024 Evaluation and management of inpatient REGGIE Warner NORA BUILDING EQUIPMENT INSPECTOR-OPERATIONS LABEL CLERK Facility:[facility] Start: 10-09-2024 End: 10-09-2024 Admission to same day surgery center Nikkie Prado APRN.OPERATIONS LABEL CLERK Work Phone: General Surgery Comment on above: [employer] Prep Instruc tions for Colonoscopy Start: 10-09-2024 End: 10-09-2024 E-mail encounter from caregiver Nikkie Johan WOOD Work Phone: General Surgery Start: 10-08-2024 End: 10-08-2024 Telephone encounter Jaci Arroyo MD Work Phone: Family [facility] [place] Comment on above: Patient Update Start: 10-07-2024 End: 10-07-2024 Office outpatient visit 25 minutes Jessie Harmon APRN.OPERATIONS LABEL CLERK Work Phone: [facility] [place] Comment on above: Hospital discharge f ollow-up (Primary Dx); Falls frequently; Generalized weakness; Unsteady gait; Cerebrovascular accident (CVA), unspecified mechanism (HCC); Paroxysmal atrial fibrillation (HCC); Seizure disorder (HCC) Start: 10-07-2024 End: 10-07-2024 ambulatory [place] [facility] Facility:[facility] [place] Start: 10-06-2024 End: 10-06-2024 ambulatory [facility] Facility:[facility] [place] Start: 10-06-2024 End: 10-06-2024 Office outpatient visit 25 minutes Earl Elise APRN.OPERATIONS LABEL CLERK Work Phone: Pulmonary Medicine Comment on above: COPD, moderate (HCC) (Primary Dx); Former cigarette smoker; Dependence on nocturnal oxygen therapy Start: 10-01-2024 End: 10-01-2024 Telephone encounter Jaci Arroyo MD Work Phone: [facility] [place] Comment on above: Patient Update; Hosp ital F/U Start: 10-01-2024 End: 10-01-2024 Telemedicine consultation with patient Joycelyn Woodruff MD Work Phone: Neurology Start: 10-01-2024 End: 10-01-2024 ambulatory Joycelyn Woodruff MD Work Phone: Neurology Comment on above: Focal epilepsy (HCC) (Primary Dx) Start: 09-25-2024 End: 09-25-2024 Refill Jaci Arroyo MD Work Phone: [facility] [place] Comment on above: Refill Request Forms ([place]) Start: 09-23-2024 End: 09-24-2024 Orders Only Deanne Cruz DO Work Phone: Vascular Surgery Comment on above: Occlusion of left ca rotid artery (Primary Dx); Subclavian artery stenosis, left (HCC) Start: 09-21-2024 End: 09-22-2024 Telephone encounter Dania Aj MD Work Phone: Neurology Comment on above: Medication Problem 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 - 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 Start: 09-15-2024 End: 09-18-2024 Emergency department patient visit DR TRACEY DIAL DO Facility:[facility] Start: 09-15-2024 End: 09-18-2024 Observation RICARDO MARIE BUILDING EQUIPMENT INSPECTOR-OPERATIONS LABEL CLERK [facility] Start: 09-15-2024 End: 09-15-2024 ambulatory Nurse Intm/Famp Triage [facility] Work Phone: Nurse Phone Triage Comment on above: Musculoskeletal Prob kuldeep; urine bright orange with odor; foul smelling bowel movement Start: 09-14-2024 End: 09-14-2024 Refill Kimo Mcgrath MD Work Phone: Pulmonary Medicine Comment on above: Refill Request Start: 09-08-2024 End: 09-08-2024 Telephone encounter Jaci Arroyo MD Work Phone: Family [facility] [place] Comment on above: Medication Problem Start: 09-04-2024 End: 09-04-2024 Refill Robin Johansen MD Work Phone: Cardiology Comment on above: Refill Request Start: 09-03-2024 End: 09-03-2024 Patient encounter procedure Joycelyn Woodruff MD Work Phone: Neurology Comment on above: Focal epilepsy (HCC) (Primary Dx); Seizure disorder (HCC); Seizure (HCC) Start: 09-03-2024 End: 09-03-2024 ambulatory JACI ARROYO Facility:[facility] Start: 08-14-2024 End: 08-14-2024 Telephone encounter Jaci Arroyo MD Work Phone: Family [facility] [place] Comment on above: Release Of Medical R ecords Refill Request Start: 08-07-2024 End: 08-07-2024 Refill Jessie Harmon APRN.OPERATIONS LABEL CLERK Work Phone: Family [facility] [place] Comment on above: Med Change Request Start: 07-30-2024 End: 07-31-2024 Refill Jaci Arroyo MD Work Phone: [facility] [place] Comment on above: Refill Request Start: 07-28-2024 End: 07-28-2024 ambulatory Jayde Wright RN NURSE NETWORK/TELECOM ENGINEER Comment on above: Information Start: 07-27-2024 End: 09-01-2024 Telephone encounter Jaci Arroyo MD Work Phone: Family [facility] [place] Comment on above: incontinence supplie s Start: 07-24-2024 End: 07-24-2024 Refill Kimo Mcgrath MD Work Phone: Pulmonary Medicine Comment on above: Refill Request Start: 07-23-2024 End: 07-23-2024 Patient encounter procedure Jude Groves MD Work Phone: Neurology Comment on above: Altered awareness, t ransient (Primary Dx); Abnormal EEG Start: 07-22-2024 End: 07-22-2024 E-mail encounter from caregiver Michelle Webb PA-C Work Phone: Neurology Start: 07-22-2024 End: 07-23-2024 Telephone encounter Jaci Arroyo MD Work Phone: [facility] [place] Comment on above: Patient Question Start: 07-22-2024 End: 07-22-2024 Patient encounter procedure Michelle Webb PA-C Work Phone: Neurology Comment on above: Cerebral aneurysm (P rimary Dx); History of stroke; Left carotid artery occlusion; History of atrial fibrillation; Spasticity; 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; Altered mental status, unspecified altered mental status type; Nonspecific abnormal electroencephalogram (EEG) Start: 07-22-2024 End: 07-22-2024 ambulatory Michelle Webb PA-C Work Phone: Neurology Comment on above: Seizure medication Start: 07-13-2024 End: 07-23-2024 E-mail encounter from caregiver [facility] Start: 07-13-2024 End: 07-13-2024 Patient encounter procedure Jessie Harmon APRN.CNP Work Phone: [facility] Comment on above: Seizure disorder (HC C) (Primary Dx); Acute pain of left knee Start: 07-13-2024 End: 07-23-2024 ambulatory [facility] Comment on above: Dr Gloria Sawyer- Surve illance CTA head and neck due Start: 07-07-2024 End: 07-07-2024 Telephone encounter Dania Aj MD Work Phone: Sleep Comment on above: apt needed Start: 07-06-2024 End: 07-06-2024 ambulatory [facility] Facility:[facility] Start: 07-01-2024 End: 07-01-2024 Patient encounter procedure Jessie Harmon BUILDING EQUIPMENT INSPECTOR.OPERATIONS LABEL CLERK Work Phone: [facility] Comment on above: Hospital discharge f ollow-up (Primary Dx); Adverse effect of drug, initial encounter; Seizure disorder (HCC); Bacterial pneumonia Start: 07-01-2024 End: 07-01-2024 ambulatory JACI ARROYO Facility:[facility] [place] Start: 06-29-2024 End: 06-29-2024 Telephone encounter Jaci Arroyo MD Work Phone: [facility] Comment on above: Patient Update Start: 06-28-2024 End: 06-28-2024 ambulatory [facility] Facility:[facility] Start: 06-27-2024 End: 06-28-2024 ambulatory Medina Al RN NURSE NETWORK/TELECOM ENGINEER Comment on above: Medication Question Start: 06-26-2024 End: 06-26-2024 Emergency department patient visit [facility] Facility:[facility] Start: 06-25-2024 End: 06-25-2024 Telephone encounter Jaci Arroyo MD Work Phone: [facility] Comment on above: Medication Request; Patient Update Start: 06-24-2024 End: 06-25-2024 Telephone encounter [facility] Comment on above: Medication Question Start: 06-23-2024 End: 06-24-2024 Telephone encounter Dania Aj MD Work Phone: Neurology Comment on above: Results Start: 06-18-2024 End: 06-19-2024 Telephone encounter Jaci Arroyo MD Work Phone: [facility] Comment on above: Insurance Authorizat ion (Amiodarone ) Procedure Start: 06-15-2024 End: 06-15-2024 ambulatory Dania Aj Facility:[facility] Start: 06-05-2024 End: 06-05-2024 Telemedicine consultation with patient Jessie Gardner BUILDING EQUIPMENT INSPECTOR.OPERATIONS LABEL CLERK Work Phone: [facility] Start: 06-05-2024 End: 06-05-2024 ambulatory Jessie Gardner BUILDING EQUIPMENT INSPECTOR.OPERATIONS LABEL CLERK Work Phone: PHYSICAL MEDICINE & REHAB Comment on above: History of stroke (P rimary Dx); Spasticity; Right foot drop; Hemiparesis affecting right side as late effect of cerebrovascular accident (HCC) Start: 06-02-2024 End: 06-02-2024 Telephone encounter Gloria Sawyer MD Work Phone: NEUROLOGY Comment on above: Question Start: 06-01-2024 End: 06-01-2024 Telemedicine consultation with patient Gloria Sawyer MD Work Phone: NEUROLOGY Start: 06-01-2024 End: 06-01-2024 ambulatory Gloria Sawyer MD Work Phone: NEUROLOGY Comment on above: Cerebral aneurysm wi thout rupture Start: 05-28-2024 End: 05-28-2024 Refill Jaci Arroyo MD Work Phone: [facility] Comment on above: Refill Request Medication Clarifica tion Start: 05-27-2024 End: 05-27-2024 ambulatory Jaci Arroyo Facility:[facility] Start: 05-26-2024 End: 05-26-2024 ambulatory Kimo Mcgrath Facility:[facility] Start: 05-22-2024 End: 05-22-2024 Telephone encounter Kimo Mcgrath MD Work Phone: Pulmonary Medicine Start: 05-21-2024 End: 05-21-2024 Telephone encounter Neurology Provider Neurology Comment on above: Future Appointment ( [place] ) Start: 05-20-2024 End: 05-20-2024 Patient encounter procedure Michelle Webb PA-C Work Phone: Neurology Comment on above: Cerebral aneurysm (P rimary Dx); History of stroke; Left carotid artery occlusion; Stenosis of left subclavian artery (HCC); History of obstructive sleep apnea; History of atrial fibrillation; History of coronary artery bypass, five; Spasticity; 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; 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) Start: 05-20-2024 End: 05-20-2024 ambulatory JACI ARROYO Facility:[facility] [place] Start: 05-14-2024 End: 05-15-2024 Telephone encounter Jaci Arroyo MD Work Phone: [facility] [place] Comment on above: Orders Start: 05-12-2024 End: 05-12-2024 Refill Jaci Arroyo MD Work Phone: [facility] [place] Comment on above: Med Change Request Start: 05-08-2024 End: 05-08-2024 Telephone encounter Dania Aj MD Work Phone: Neurology Comment on above: Results Start: 05-07-2024 End: 05-07-2024 ambulatory DANIA AJ JR Facility:[facility] [place] Start: 05-07-2024 End: 05-07-2024 Subsequent hospital visit by physician [facility] (I-Stat/1.5t) Work Phone: Radiology Comment on above: History of stroke [Z 86.73] Start: 05-06-2024 End: 05-06-2024 Telephone encounter Jorge Cardoso MD Work Phone: General Surgery Comment on above: Patient Question; co lonoscopy prep Start: 05-02-2024 End: 05-04-2024 Refill Kimo Mcgrath MD Work Phone: Pulmonary Medicine Comment on above: Med Change Request Start: 04-09-2024 End: 04-09-2024 Refill Jaci Arroyo MD Work Phone: Family [facility] [place] Comment on above: Refill Request Start: 04-08-2024 End: 04-08-2024 Emergency department patient visit Jaci Arroyo Facility:[facility] Start: 04-03-2024 End: 04-03-2024 ambulatory JACI ARROYO Facility:[facility] [place] Start: 04-03-2024 End: 04-03-2024 Patient encounter procedure Jaci Arroyo MD Work Phone: [facility] [place] Comment on above: Medicare annual well ness visit, initial (Primary Dx); Mixed hyperlipidemia; Anxiety; Coronary artery disease involving [place] coronary artery of [place] heart without angina pectoris; Essential hypertension; Chronic insomnia; Paroxysmal atrial fibrillation (HCC); Bradycardia; 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) Start: 04-03-2024 End: 04-03-2024 Telephone encounter Jaci Arroyo MD Work Phone: Internal Medicine [place] Comment on above: Insurance Authorizat ion Start: 04-02-2024 End: 04-02-2024 ambulatory DENA HORTENSIA Facility:[facility] [place] Start: 04-01-2024 End: 04-01-2024 Telephone encounter Jaci Arroyo MD Work Phone: Family [facility] [place] Comment on above: Question Start: 03-31-2024 End: 03-31-2024 Refill Jaci Arroyo MD Work Phone: Family [facility] [place] Comment on above: Refill Request Start: 03-23-2024 End: 03-23-2024 ambulatory JACI ARROYO Facility:[facility] [place] Start: 03-23-2024 End: 03-23-2024 Patient encounter procedure Kimo Mcgrath MD Work Phone: Pulmonary Medicine Comment on above: COPD, moderate (HCC) (Primary Dx); Former cigarette smoker; Dependence on nocturnal oxygen therapy Start: 03-11-2024 Telephone encounter Dania Aj MD Work Phone: Neurology Comment on above: Patient Question Start: 03-09-2024 End: 03-09-2024 Patient encounter procedure Dania Aj MD Work Phone: Neurology Comment on above: History of stroke (P rimary Dx); Left carotid artery occlusion; Stenosis of left subclavian artery (HCC); History of obstructive sleep apnea; History of atrial fibrillation; History of coronary artery bypass, five; 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; Spasticity; Other symptoms and signs involving the nervous system; 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); Occlusion and stenosis of unspecified carotid artery; Altered mental status, unspecified altered mental status type Start: 03-04-2024 Refill Jaci qiu MD Work Phone: [facility] [place] Comment on above: Refill Request Start: 03-02-2024 End: 03-02-2024 Patient encounter procedure Robin Johansen MD Work Phone: Cardiology Comment on above: Coronary artery dise ase involving [place] coronary artery of [place] heart without angina pectoris (Primary Dx); Paroxysmal atrial fibrillation (HCC); Essential hypertension; Mixed hyperlipidemia; Bradycardia; Occlusion of left carotid artery; Pre-operative cardiovascular examination Start: 03-02-2024 End: 03-02-2024 Patient encounter status Robin Johansen MD Work Phone: [facility] Start: 02-28-2024 Telephone encounter Mohinder trammell MD Work Phone: Orthopaedics Start: 02-25-2024 End: 04-30-2024 Telephone encounter Jorge Cardoso MD Work Phone: General Surgery Comment on above: Appointment Start: 02-24-2024 End: 02-24-2024 Patient encounter procedure Lacy Lai MD Work Phone: General Surgery Comment on above: History of colonic p olyps (Primary Dx) Start: 02-18-2024 Refill Mariano Beckman APRN.CNP Work Phone: [facility] [place] Comment on above: Refill Request Start: 02-03-2024 Telephone encounter Jaci caballero MD Work Phone: [facility] [place] Comment on above: stool concern Start: 01-30-2024 Telephone encounter Jaci caballero MD Work Phone: [facility] [place] Comment on above: Patient Update Start: 01-22-2024 Telephone encounter Jaci caballero MD Work Phone: [facility] Comment on above: Patient Update Start: 01-16-2024 Telephone encounter Jaci caballero MD Work Phone: [facility] Comment on above: PA to be done Start: 01-09-2024 Telephone encounter Jaci caballero MD Work Phone: [facility] Comment on above: Skin Issue / Penis Start: 01-08-2024 Telephone encounter Jaci caballero MD Work Phone: [facility] Comment on above: Faxed to [address] Start: 01-07-2024 Telephone encounter Dena rollins APRN.OPERATIONS LABEL CLERK Work Phone: Neurology Comment on above: Results Start: 01-03-2024 End: 01-03-2024 ambulatory Dena Hortensia Facility:[facility] Start: 12-31-2023 End: 12-31-2023 Patient encounter procedure Jaci Arroyo MD Work Phone: [facility] Comment on above: Hypertension, essent ial (Primary Dx); Anxiety; Depression, unspecified depression type; Chronic insomnia; Stage 3a chronic kidney disease (HCC); Elevated glucose; Hyperlipidemia, unspecified hyperlipidemia type; Erectile dysfunction, unspecified erectile dysfunction type; Iron deficiency anemia due to chronic blood loss; Paroxysmal atrial fibrillation (HCC); Chronic obstructive pulmonary disease, unspecified COPD type (HCC); Cerebrovascular accident (CVA), unspecified mechanism (HCC); Coronary artery disease involving [place] coronary artery of [place] heart without angina pectoris; 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); Right hemiplegia (HCC); Dysphasia; Aphasia as late effect of cerebrovascular accident; Essential hypertension Refill Request Start: 12-25-2023 Telephone encounter Dena rollins APRN.OPERATIONS LABEL CLERK Work Phone: Neurology Comment on above: Results Start: 12-18-2023 Refill Jessie Harmon APRN.OPERATIONS LABEL CLERK Work Phone: [facility] Comment on above: Refill Request Start: 12-18-2023 Telephone encounter Dena Th ria BECERRA.OPERATIONS LABEL CLERK Work Phone: Neurology Comment on above: Results Start: 12-17-2023 Telephone encounter Dena Th ria BUILDING EQUIPMENT INSPECTOR.OPERATIONS LABEL CLERK Work Phone: Neurology Comment on above: Orders Start: 12-16-2023 End: 12-16-2023 Patient encounter procedure Dena Hortensiablaise BECERRA.OPERATIONS LABEL CLERK Work Phone: Neurology Comment on above: DARON (obstructive sle ep apnea) (Primary Dx); Intolerance of continuous positive airway pressure (CPAP) ventilation; RLS (restless legs syndrome); Vitamin D deficiency Start: 11-26-2023 Telephone encounter Jaci caballero MD Work Phone: [facility] [place] Start: 11-22-2023 Refill Jaci qiu MD Work Phone: Family [facility] [place] Comment on above: Future Appointment; Orders; Prescription Refills Start: 11-04-2023 End: 11-04-2023 ambulatory [facility] Facility:[facility] Start: 11-04-2023 Telephone encounter aJci caballero MD Work Phone: [facility] [place] Comment on above: requesting referral Start: 10-28-2023 Refill Mariano Beckman APRN.OPERATIONS LABEL CLERK Work Phone: Cardiology Comment on above: Refill Request Start: 10-11-2023 Telephone encounter Jaci caballero MD Work Phone: [facility] [place] Comment on above: Patient Update Start: 10-04-2023 Telephone encounter Dena Evelio rollins APRN.OPERATIONS LABEL CLERK Work Phone: Neurology Comment on above: Appointment Start: 10-01-2023 End: 10-01-2023 Patient encounter procedure Deanne Cruz DO Work Phone: Vascular Surgery Comment on above: Occlusion of left ca rotid artery (Primary Dx); Subclavian artery stenosis, left (HCC) Start: 10-01-2023 Telephone encounter Jaci caballero MD Work Phone: [facility] [place] Comment on above: Requesting medicatio n change Start: 09-27-2023 End: 09-27-2023 Patient encounter procedure Jaci Arroyo MD Work Phone: [facility] [place] Comment on above: Cerebrovascular acci dent (CVA) due to embolism of left carotid artery (HCC) (Primary Dx); Right hemiplegia (HCC); Chronic insomnia; Mixed hyperlipidemia; Essential hypertension; Coronary artery disease involving [place] coronary artery of [place] heart without angina pectoris; Paroxysmal atrial fibrillation (HCC); Centrilobular emphysema (HCC); Erectile dysfunction, unspecified erectile dysfunction type; Anxiety; Stage 3 chronic kidney disease, unspecified whether stage 3a or 3b CKD (HCC); Aneurysm (HCC) Start: 09-26-2023 End: 09-26-[address] Jaci Arroyo Work Phone: [facility] Work Phone: Start: 09-26-2023 End: 09-26-2023 ambulatory Jaci Arroyo Facility:[facility] Start: 09-24-2023 Telephone encounter Jaci caballero MD Work Phone: [facility] [place] Comment on above: Orders Start: 09-20-2023 Telephone encounter Kimo Mcgrath MD Work Phone: Pulmonary Medicine Comment on above: Results Start: 09-19-2023 Telephone encounter Jaci caballero MD Work Phone: [facility] [place] Comment on above: Occupational therapy Plan of Care Start: 09-16-2023 End: 09-16-2023 Patient encounter procedure Kimo Mcgrath MD Work Phone: Pulmonary Medicine Comment on above: Centrilobular emphys marcelino (HCC) (Primary Dx); Former smoker; Nocturnal hypoxemia Start: 09-16-2023 Telephone encounter Jaci caballero MD Work Phone: [facility] [place] Comment on above: Medication Update Start: 09-13-2023 Telephone encounter Jaci caballero MD Work Phone: [facility] [place] Comment on above: Patient Update Start: 09-09-2023 Telephone encounter Jaci caballero MD Work Phone: [facility] [place] Comment on above: Home Health orders Start: 09-09-2023 End: 09-09-[address] Jaci Arroyo Work Phone: [facility] Work Phone: Start: 09-09-2023 End: 09-09-[address] Jaci Arroyo Work Phone: [facility] Start: 09-09-2023 End: 09-09-2023 ambulatory Jaci Arroyo Facility:[facility] Start: 09-02-2023 ambulatory Matt FENTON Facility:[facility] Start: 09-02-[address] Jaci Arroyo Work Phone: [facility] Start: 08-26-2023 ambulatory Matt FENTON Facility:[facility] Start: 08-26-[address] Jaci Arroyo Work Phone: [facility] Start: 08-20-2023 End: 08-20-[address] Jaci Arroyo Work Phone: [facility] Work Phone: Start: 08-19-[address] Jaci Arroyo Work Phone: [facility] Start: 08-13-2023 End: 08-13-[address] Jaci Arroyo Work Phone: [facility] Work Phone: Start: 08-12-2023 End: 08-12-[address] Jaci Arroyo Work Phone: [facility] Work Phone: Start: 08-12-[address] Jaci Arroyo Work Phone: [facility] [place] Start: 08-09-2023 Non-patient / Non-visit Dr. Jimi Arroyo Work Phone: [facility] Start: 08-08-2023 Non-patient / Non-visit Dr. Jimi Arroyo Work Phone: [facility] Work Phone: Start: 08-08-2023 Non-patient / Non-visit Dr. Jimi Arroyo Work Phone: [facility] Start: 08-07-2023 Non-patient / Non-visit Dr. Jimi Arroyo Work Phone: [facility] Work Phone: Start: 08-07-2023 End: 08-09-2023 Evaluation and management of inpatient Dr. Jaci Arroyo Work Phone: [facility] 3 Work Phone: Start: 08-07-2023 End: 08-09-[address] Jaci Arroyo Work Phone: [facility] Work Phone: Start: 08-07-2023 End: 08-07-2023 Non-patient / Non-visit Dr. Jaci Arroyo Work Phone: [facility] Start: 07-26-2023 End: 07-26-[address] Jaci Arroyo Work Phone: [facility] Work Phone: Start: 07-26-2023 End: 07-26-2023 Emergency department patient visit MATTHEW AVALOS MD Facility:[facility] Start: 07-26-2023 End: 07-26-2023 Emergency department patient visit MATTHEW AVALOS MD [facility] Start: 07-25-2023 Telephone encounter I Donell driscoll MD Work Phone: Colorectal Surgery Comment on above: Results Start: 07-22-2023 Refill Jaci qiu MD Work Phone: [facility] [place] Comment on above: Refill Request Start: 07-15-2023 End: 07-15-2023 Refill I Donell Sandoval MD Work Phone: Colorectal Surgery Comment on above: Refill Request Pre-op evaluation (P rimary Dx); 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); Coronary artery disease involving [place] coronary artery of [place] heart without angina pectoris; Paroxysmal atrial fibrillation (HCC); Centrilobular emphysema (HCC) Patient Education Rectal mass (Primary Dx) Start: 07-15-2023 End: 07-15-2023 Preprocedural examination done [place] [id number] Work Phone: [facility] Work Phone: Start: 07-11-2023 Telephone encounter Jaci caballero MD Work Phone: [facility] Comment on above: Patient Question Start: 07-08-2023 End: 07-08-2023 Patient encounter procedure Robin Johansen MD Work Phone: Cardiology Comment on above: Coronary artery dise ase involving [place] coronary artery of [place] heart without angina pectoris (Primary Dx); Paroxysmal atrial fibrillation (HCC); Essential hypertension; Bradycardia; Mixed hyperlipidemia; Occlusion of left carotid artery; Pre-operative cardiovascular examination Start: 07-08-2023 End: 07-08-2023 Patient encounter status Robin Johansen MD Work Phone: [facility] Work Phone: Start: 07-02-2023 Telephone encounter Robin Johansen MD Work Phone: Cardiology Comment on above: Medication Problem Start: 07-01-2023 Telephone encounter I Donell driscoll MD Work Phone: Colorectal Surgery Start: 06-26-2023 Telephone encounter I Donell driscoll MD Work Phone: Colorectal Surgery Comment on above: Patient Update Start: 06-25-2023 Telephone encounter I Donell driscoll MD Work Phone: Colorectal Surgery Start: 06-24-2023 Orders Only I Donell Sandoval MD Work Phone: Colorectal Surgery Comment on above: Paroxysmal atrial fi brillation (HCC) (Primary Dx); Preoperative examination Start: 06-24-2023 Preprocedural examin ation done I Donell Sandoval MD Work Phone: [facility] Start: 06-21-2023 Orders Only I Donell Sandoval MD Work Phone: Colorectal Surgery Comment on above: Cerebrovascular acci dent (CVA), unspecified mechanism (HCC) (Primary Dx) Start: 06-20-2023 ambulatory I Donell Sandoval MD Work Phone: Colorectal Surgery Start: 06-20-2023 Telephone encounter Robin Johansen MD Work Phone: [facility] Comment on above: Patient Question Start: 06-19-2023 End: 06-19-2023 Patient encounter procedure Nacho Sandoval MD Work Phone: Colorectal Surgery Comment on above: Benign neoplasm of r ectum (Primary Dx) Start: 06-18-2023 End: 06-18-2023 Patient encounter procedure Deanne Cruz DO Work Phone: Vascular Surgery Comment on above: Occlusion of left ca rotid artery (Primary Dx) Start: 06-12-2023 End: 06-12-2023 Subsequent hospital visit by physician [facility] (I-Stat/1.5t) Work Phone: Radiology Comment on above: Iron deficiency anem ia due to chronic blood loss [D50.0] Start: 06-11-2023 End: 06-11-2023 Patient encounter procedure Jaci Arroyo MD Work Phone: [facility] [place] Comment on above: Essential hypertensi on (Primary Dx); Anxiety; Depression, unspecified depression type; Hyperlipidemia, unspecified hyperlipidemia type; Elevated glucose; Cerebrovascular accident (CVA), unspecified mechanism (HCC); Right hemiplegia (HCC); Aphasia as late effect of cerebrovascular accident; Coronary artery disease involving [place] coronary artery of [place] heart without angina pectoris; Paroxysmal atrial fibrillation (HCC); Iron deficiency anemia due to chronic blood loss; Erectile dysfunction, unspecified erectile dysfunction type; Chronic obstructive pulmonary disease, unspecified COPD type (HCC); Need for vaccination; Stage 3 chronic kidney disease, unspecified whether stage 3a or 3b CKD (HCC) Start: 06-07-2023 Telephone encounter Mariano hart APRN.CNP Work Phone: Family [facility] Comment on above: Results Start: 05-29-2023 Telephone encounter Kimo Mcgrath MD Work Phone: Pulmonary Medicine Comment on above: Results Start: 05-29-2023 End: 05-29-[address] Jaci Arroyo Work Phone: [facility]-Pulmonary Medicine [facility] Work Phone: Start: 05-28-2023 Telephone encounter Jorge Cardoso MD Work Phone: General Surgery Comment on above: Appointment Start: 05-27-2023 Telephone encounter Kimo Mcgrath MD Work Phone: Pulmonary Medicine Comment on above: Patient Question Start: 05-22-2023 End: 05-22-[address] Jaci Arroyo Work Phone: [facility] Work Phone: Start: 05-22-2023 End: 05-22-[address] Jaci Arroyo Work Phone: [facility]-Cat Scan, [facility] Work Phone: Start: 05-21-2023 End: 05-21-2023 Patient encounter procedure Jorge Cardoos MD Work Phone: General Surgery Comment on above: Iron deficiency anem ia due to chronic blood loss (Primary Dx) Start: 05-14-2023 End: 05-14-2023 Patient encounter procedure Bowen Hernandez Work Phone: Podiatry Comment on above: Onychomycosis (Prima ry Dx); Pain in toe of left foot; Pain in toe of right foot Start: 05-13-2023 Chart abstracting Meka roberts PA-C Work Phone: Pulmonary Medicine Start: 05-13-2023 Telephone encounter Kimo Mcgrath MD Work Phone: Pulmonary Medicine Comment on above: Patient Question Start: 05-09-2023 Telephone encounter Jaci caballero MD Work Phone: Family [facility] [place] Comment on above: Patient Update; Miss ed SN Visit Start: 05-07-2023 Telephone encounter Jaci caballero MD Work Phone: [facility] [place] Comment on above: Forms Start: 04-22-2023 Telephone encounter Mariano hart APRN.OPERATIONS LABEL CLERK Work Phone: [facility] Comment on above: Results Start: 04-19-2023 End: 04-19-2023 Office outpatient visit 25 minutes Mariano Beckman APRN.OPERATIONS LABEL CLERK Work Phone: [facility] [place] Comment on above: Iron deficiency anem ia due to chronic blood loss (Primary Dx); Fall, subsequent encounter; Right hemiplegia (HCC); Aneurysm (HCC); Stage 3a chronic kidney disease (HCC) Start: 04-12-2023 Telephone encounter Jaci caballero MD Work Phone: [facility] Comment on above: Orders Start: 04-11-2023 Telephone encounter Jorge Cardoso MD Work Phone: [place] Provider Adult Comment on above: Results Start: 04-11-[address] Jaci Arroyo Work Phone: [facility] Start: 04-10-2023 ambulatory SASHA SNAY Facility:[facility] Start: 04-10-2023 End: 04-10-2023 Subsequent hospital visit by physician Jorge Cardoso MD Work Phone: [facility] Comment on above: Iron deficiency anem ia due to chronic blood loss [D50.0] Start: 04-05-2023 Telephone encounter Sabiha Stevens MD Work Phone: [facility] Cardiac, Thoracic [facility] Vascular Specialties Comment on above: Appointment (Appoint ment) Start: 04-05-2023 End: 04-05-2023 Patient encounter procedure Jorge Cardoso MD Work Phone: General Surgery Comment on above: Iron deficiency anem ia due to chronic blood loss Start: 04-04-[address] Jaci Arroyo Work Phone: [facility] Start: 04-02-2023 End: 04-02-[address] Jaci Arroyo Work Phone: [facility] Work Phone: Start: 04-02-[address] Jaci Arroyo Work Phone: [facility] Start: 03-28-[address] Jaci Arroyo Work Phone: [facility] Start: 03-27-2023 End: 03-27-[address] Jaci Arroyo Work Phone: [facility] Work Phone: Start: 03-27-2023 Telephone encounter Jaci caballero MD Work Phone: [facility] Comment on above: Patient Update Start: 03-25-2023 Refill Mariano Beckman APRN.CNP Work Phone: [facility] Comment on above: Refill Request Start: 03-22-2023 End: 03-27-[address] TRACEY DIAL DO Facility:[facility] Start: 03-22-2023 Telephone encounter Jaci caballero MD Work Phone: [facility] Comment on above: Patient Update Start: 03-21-2023 End: 03-21-2023 Emergency department patient visit MARIANO HOPKINS MD Facility:[facility] Start: 03-21-2023 End: 03-21-2023 Emergency department patient visit MARIANO HOPKINS MD [facility] Start: 03-18-2023 Refill Mariano Karuna BUILDING EQUIPMENT INSPECTOR.OPERATIONS LABEL CLERK Work Phone: [facility] [place] Comment on above: Refill Request Start: 03-12-2023 End: 03-12-2023 [facility]ulatory [facility] Work Phone: [facility] Comment on above: Spirometry Start: 03-12-2023 End: 03-12-2023 [facility] encounter [facility] Work Phone: [facility][1] Comment on above: Centrilobular emphys marcelino (HCC) (Primary Dx); Former cigarette smoker; CVA, old, hemiparesis (HCC) Start: 03-11-2023 Refill Mariano Karuna BUILDING EQUIPMENT INSPECTOR.OPERATIONS LABEL CLERK Work Phone: [facility] [place] Comment on above: Refill Request Start: 03-11-2023 Telephone encounter Jaci caballero MD Work Phone: [facility] [place] Comment on above: Medication Request; Patient Question Forms (Incontinence supplies) Start: 03-07-2023 End: 03-07-2023 Patient encounter procedure Jaci Arroyo MD Work Phone: [facility] [place] Comment on above: Anxiety (Primary Dx) ; Essential hypertension; Hyperlipidemia, unspecified hyperlipidemia type; Coronary artery disease involving [place] coronary artery of [place] heart without angina pectoris; Cerebrovascular accident (CVA), unspecified mechanism (HCC); Chronic insomnia; Right hemiplegia (HCC); Aphasia as late effect of cerebrovascular accident; Chronic obstructive pulmonary disease, unspecified COPD type (HCC); Left flank pain; Cough; Elevated serum creatinine; Elevated glucose; Cough, unspecified type; Respiratory failure, unspecified chronicity, unspecified whether with hypoxia or hypercapnia (HCC); Stage 3a chronic kidney disease (HCC); Aneurysm (HCC) Start: 03-06-2023 Refill aJci qiu MD Work Phone: [facility] Comment on above: Refill Request Start: 03-01-2023 Refill Mariano Karuna BUILDING EQUIPMENT INSPECTOR.OPERATIONS LABEL CLERK Work Phone: [facility] Comment on above: Refill Request Start: 02-28-2023 Telephone encounter Mariano Laurai l BUILDING EQUIPMENT INSPECTOR.OPERATIONS LABEL CLERK Work Phone: [facility] Comment on above: Results Start: 02-27-2023 Refill Mariano Karuna BUILDING EQUIPMENT INSPECTOR.OPERATIONS LABEL CLERK Work Phone: [facility] Comment on above: Refill Request Start: 02-21-2023 Refill Mariano Karuna BUILDING EQUIPMENT INSPECTOR.OPERATIONS LABEL CLERK Work Phone: [facility] Comment on above: Refill Request Start: 02-20-2023 Telephone encounter Robin Johansen MD Work Phone: [facility] Card[facility] [place] Comment on above: Patient Update Start: 02-15-2023 Telephone encounter Jaci caballero MD Work Phone: [facility] Comment on above: Patient Question Start: 02-14-2023 Refill Mariano Karuna BUILDING EQUIPMENT INSPECTOR.OPERATIONS LABEL CLERK Work Phone: [facility] Comment on above: Refill Request Start: 02-13-2023 End: 02-13-[address] Jaci Arroyo Work Phone: [facility] Work Phone: Start: 02-13-2023 End: 02-13-[address] Jaci Arroyo Work Phone: [facility] Work Phone: Start: 02-13-2023 Telephone encounter Jaci caballero MD Work Phone: [facility] Comment on above: Patient Question Start: 01-28-2023 Refill Mariano Karuna BUILDING EQUIPMENT INSPECTOR.OPERATIONS LABEL CLERK Work Phone: [facility] Comment on above: Refill Request Start: 01-21-2023 ambulatory No Pcp Melany wright [facility] Start: 12-11-2022 Telephone encounter Jaci caballero MD Work Phone: [facility] [place] Comment on above: Medication Problem ( back order problem /) Start: 12-10-2022 Telephone encounter Jaci caballero MD Work Phone: [facility] [place] Comment on above: Cough Patient Update Start: 12-06-2022 Telephone encounter Jaci caballero MD Work Phone: [facility] [place] Comment on above: Patient Update; Orde rs Start: 12-05-2022 Telephone encounter Jaci caballero MD Work Phone: [facility] [place] Comment on above: Insurance Authorizat ion (Ativan ) Orders Start: 12-04-2022 End: 12-04-2022 Subsequent hospital visit by physician Xr [facility] [place] Work Phone: Radiology Comment on above: Acute cough [R05.1] Start: 12-04-2022 End: 12-04-2022 Patient encounter procedure Jaci Arroyo MD Work Phone: [facility] [place] Comment on above: Acute cough (Primary Dx); Anxiety; Coronary artery disease involving [place] coronary artery of [place] heart without angina pectoris; Paroxysmal atrial fibrillation (HCC); Right hemiplegia (HCC); Essential hypertension; Mixed hyperlipidemia; Tracheostomy status (HCC); Aneurysm (HCC) Start: 12-04-2022 Telephone encounter Jaci caballero MD Work Phone: Family [facility] [place] Comment on above: Patient Update; FYI- No Action Needed Start: 12-03-2022 Telephone encounter Jaci caballero MD Work Phone: [facility] [place] Comment on above: Patient Update Start: 11-29-2022 Telephone encounter Jaci caballero MD Work Phone: [facility] [place] Comment on above: ST plan of care Start: 11-27-2022 Telephone encounter Jaci caballero MD Work Phone: Family [facility] [place] Comment on above: plan of care Start: 11-26-2022 Telephone encounter Jaci caballero MD Work Phone: [facility] Comment on above: PT plan of care Start: 11-23-2022 Telephone encounter Robin Johansen MD Work Phone: Cardiology Comment on above: Appointment Start: 11-19-2022 Telephone encounter Jaci caballero MD Work Phone: [facility] Comment on above: Delay of care Start: 11-18-2022 End: 11-19-2022 ambulatory Ford Jones RN F [facility] Start: 11-18-2022 Patient encounter procedure Ford Jones RN NURSE NETWORK/TELECOM ENGINEER Comment on above: Appointment Start: 11-18-2022 End: 11-19-2022 Observation KYLIE BLUM BUILDING EQUIPMENT INSPECTOR-OPERATIONS LABEL CLERK [facility] Start: 11-17-2022 End: 11-17-2022 Patient encounter procedure Jaci Arroyo MD Work Phone: [facility] Comment on above: Bacterial pneumonia (Primary Dx); Right hemiplegia (HCC); Essential hypertension; Bradycardia; Anxiety; Chronic insomnia; Shortness of breath; COPD with exacerbation (HCC); Aneurysm (HCC); Tracheostomy status (HCC) Start: 11-16-2022 ambulatory Jaci qiu MD Work Phone: [facility] Start: 11-16-2022 Telephone encounter Jaci caballero MD Work Phone: [facility] Comment on above: Patient concern Orders home health calling needs verbal order Transition Of Care Start: 11-15-2022 Non-patient / Non-visit Dr. Jimi Arroyo Work Phone: [facility] Start: 11-14-2022 Telephone encounter Jaci caballero MD Work Phone: [facility] Comment on above: Patient Update; FYI- No Action Needed Start: 11-14-2022 Non-patient / Non-visit Dr. Jimi Arroyo Work Phone: [facility] Start: 11-13-2022 Non-patient / Non-visit Dr. Jimi Arroyo Work Phone: [facility] Start: 11-13-2022 End: 11-13-2022 Non-patient / Non-visit Dr. Jaci Arroyo Work Phone: [facility] Start: 11-12-2022 Non-patient / Non-visit Dr. Jimi Arroyo Work Phone: [facility] Start: 11-11-2022 End: 11-15-2022 Evaluation and management of inpatient Dr. Jaci Arroyo Work Phone: [facility] Start: 11-09-2022 Telephone encounter Desmond donaldson PA-C Work Phone: Urology Comment on above: Patient Question Start: 11-08-2022 Telephone encounter Jaci caballero MD Work Phone: [facility] Comment on above: Patient Update Start: 11-06-2022 Refill Jessie Harmon APRN.CNP Work Phone: [facility] Comment on above: Refill Request Start: 11-06-2022 Telephone encounter Jaci caballero MD Work Phone: [facility] Comment on above: Physical Therapy Laura n of Care Start: 11-05-2022 Telephone encounter Jaci caballero MD Work Phone: [facility] Comment on above: Patient Update (Puls e Out of Parameters) ST plan of care Start: 11-01-2022 Telephone encounter Jaci caballero MD Work Phone: [facility] Comment on above: [facility] Speech (Heart rate out of parameter/) Start: 10-30-2022 Telephone encounter Jaic caballero MD Work Phone: [facility] Comment on above: [facility] OT Plan of Ca re Start: 10-22-2022 Telephone encounter Desmond donaldson PA-C Work Phone: Urology Comment on above: Home Health record Orders Start: 10-15-2022 End: 10-15-2022 Patient encounter procedure Robin Johansen MD Work Phone: Cardiology Comment on above: Coronary artery dise ase involving [place] coronary artery of [place] heart without angina pectoris (Primary Dx); Paroxysmal atrial fibrillation (HCC); Essential hypertension; Mixed hyperlipidemia; Bradycardia; Occlusion of left carotid artery Start: 10-15-2022 Telephone encounter Robin Johansen MD Work Phone: Cardiology Comment on above: Appointment (Appoint ment 10/15/22) Results (Urine cultu re); Orders Start: 10-11-2022 Telephone encounter Jaci caballero MD Work Phone: [facility] [place] Comment on above: Orders Start: 10-05-2022 Telephone encounter Jaci caballero MD Work Phone: [facility] [place] Comment on above: Patient Update Orders Start: 10-04-2022 Telephone encounter Jaci caballero MD Work Phone: [facility] [place] Comment on above: [facility] for [facility] Start: 10-02-2022 Telephone encounter Anushka Thomas APRN.CNP Work Phone: [facility] Cardiology Comment on above: Results Start: 09-28-2022 Telephone encounter Robin Johansen MD Work Phone: Cardiology Comment on above: Results Start: 09-18-2022 End: 09-18-[address] Jaci Arroyo Work Phone: [facility] Start: 09-17-2022 Telephone encounter Desmond donaldson PA-C Work Phone: Urology Comment on above: Results; Orders Patient Update Start: 09-15-2022 End: 09-15-[address] Jaci Arroyo Work Phone: [facility] Start: 09-13-2022 Telephone encounter Jaci caballero MD Work Phone: [facility] [place] Comment on above: [facility] requesting records Start: 09-10-2022 Refill Jaci qiu MD Work Phone: [facility] [place] Comment on above: Patient Update Start: 09-07-2022 End: 09-10-2022 ambulatory Jaci Arroyo MD Work Phone: [facility] [place] Comment on above: Aphasia as late effe ct of cerebrovascular accident (Primary Dx); Chronic insomnia; Right hemiplegia (HCC); Paroxysmal atrial fibrillation (HCC); Essential hypertension; Anxiety Start: 09-07-2022 End: 09-10-2022 Telemedicine consultation with patient Jaci Arroyo MD Work Phone: [facility] [place] Start: 09-06-2022 Telephone encounter Robin Johansen MD Work Phone: [facility] Cardiology [place] Comment on above: Beveler - O ther (Having BMP completed) Patient Update Start: 09-03-2022 Telephone encounter Dania Aj MD Work Phone: Neurology Comment on above: Orders Start: 09-03-2022 End: 09-03-2022 Patient encounter procedure Robin Johansen MD Work Phone: Cardiology Comment on above: Coronary artery dise ase involving [place] coronary artery of [place] heart without angina pectoris (Primary Dx); Essential hypertension; Hyperlipidemia, unspecified hyperlipidemia type; Occlusion of left carotid artery Start: 08-30-2022 Telephone encounter Jaci caballero MD Work Phone: [facility] [place] Comment on above: Patient Update Start: 08-29-2022 Telephone encounter Jaci caballero MD Work Phone: [facility] [place] Comment on above: Patient Update Start: 08-23-2022 Telephone encounter Desmond donaldson PA-C Work Phone: [facility] Comment on above: Appointment Start: 08-22-2022 End: 08-22-[address] Jac[facility]roy[facility] [place] Start: 08-21-2022 End: 08-21-2022 Patient encounter procedure Desmond Ambriz PA-C Work Phone: Urology Comment on above: Acute cystitis witho ut hematuria (Primary Dx); Balanitis Start: 08-20-2022 Telephone encounter Jaci caballero MD Work Phone: [facility] Comment on above: insurance not covere d Start: 08-17-2022 Non-patient / Non-visit Dr. Jimi Arroyo Work Phone: [facility] Start: 08-16-2022 Refill Jaci qiu MD Work Phone: [address] [place] [address] Comment on above: Refill Request Urology referral Start: 08-16-2022 Non-patient / Non-visit Dr. Jimi Arroyo Work Phone: [facility] Start: 08-16-2022 End: 08-17-2022 Evaluation and management of inpatient Dr. Jaci Arroyo [facility] Start: 08-16-2022 End: 08-17-[address] Jaci Arroyo Work Phone: [facility] Work Phone: Start: 08-08-2022 Telephone encounter Robin Johansen MD Work Phone: Cardiology Comment on above: Patient Question Start: 08-07-2022 Telephone encounter Jaci caballero MD Work Phone: [facility] Comment on above: [facility] re verbal order Start: 07-27-2022 Telephone encounter Jaci caballero MD Work Phone: [facility] Comment on above: Order request for IS Start: 07-24-2022 Telephone encounter Jaci caballero MD Work Phone: [facility] Comment on above: FYI-No Action Needed Start: 07-16-2022 Telephone encounter Jaci caballero MD Work Phone: [facility] Comment on above: Patient Update Start: 07-04-2022 End: 07-04-2022 ambulatory Jessie Harmon APRN.OPERATIONS LABEL CLERK Work Phone: [facility] Comment on above: Aphasia as late effe ct of cerebrovascular accident (Primary Dx); DARON (obstructive sleep apnea); Chronic insomnia Start: 07-04-2022 End: 07-04-2022 Telemedicine consultation with patient Jessie Harmon APRN.OPERATIONS LABEL CLERK Work Phone: [facility] [place] Start: 06-21-2022 Non-patient / Non-visit Dr. Jimi Arroyo Work Phone: [facility] Start: 06-19-2022 End: 06-19-[address] Jaci Arroyo Work Phone: [facility] Work Phone: Start: 06-19-2022 End: 06-19-[address] Jaci Arroyo Work Phone: [facility]Pulmonary Services/Neurology Start: 06-08-2022 Refill Jaci qiu MD Work Phone: [facility] Comment on above: Refill Request Start: 05-29-2022 End: 05-29-[address] Jaci Arroyo Work Phone: [facility] Medicine [facility] Start: 05-25-2022 Telephone encounter Jaci caballero MD Work Phone: [facility] Comment on above: report missed visit Start: 05-10-2022 End: 05-10-2022 ambulatory Jaci Arroyo MD Work Phone: [facility] Comment on above: Aphasia as late effe ct of cerebrovascular accident (Primary Dx); Right hemiplegia (HCC); Cerebrovascular accident (CVA), unspecified mechanism (HCC); Coronary artery disease involving [place] coronary artery of [place] heart without angina pectoris; Essential hypertension; Paroxysmal atrial fibrillation (HCC); Anxiety; Dysphasia Start: 05-10-2022 End: 05-10-2022 Telemedicine consultation with patient Jaci Arroyo MD Work Phone: [facility] Start: 05-07-2022 End: 05-07-2022 ambulatory [facility] Work Phone: Start: 05-07-2022 End: 05-07-2022 Patient encounter procedure [facility] Start: 05-07-2022 Telephone encounter Jaci caballero MD Work Phone: [facility] [place] Comment on above: Opened In Error fax orders Start: 05-06-2022 Refill Mariano Beckman APRN.CNP Work Phone: [facility] [place] Comment on above: Refill Request Start: 05-01-2022 Telephone encounter Jaci caballero MD Work Phone: [facility] [place] Comment on above: ST Order Request Start: 04-19-2022 End: 04-19-2022 Patient encounter procedure Sabiha Stevens MD Work Phone: [facility] Cardiac, Thoracic, [facility] Vascular Specialties Comment on above: Peripheral vascular disease, unspecified (HCC) (Primary Dx); Foot drop, right Start: 04-13-2022 Telephone encounter Jaci caballero MD Work Phone: [facility] [place] Comment on above: Patient Question Start: 04-11-2022 Telephone encounter Jaci caballero MD Work Phone: [facility] [place] Comment on above: medication question Start: 03-22-2022 Telephone encounter Jaci caballero MD Work Phone: [facility] [place] Comment on above: Patient Update Start: 03-09-2022 Telephone encounter Jaci caballero MD Work Phone: [facility] [place] Comment on above: Home Health Update/R equest Start: 03-05-2022 Telephone encounter Sabiha Stevens MD Work Phone: [facility] Cardiac, Thoracic and Vascular Specialties Comment on above: Appointment ([place] Patient) Colon Michel Start: 02-19-2022 Refill Jaci qiu MD Work Phone: [facility] [place] Comment on above: Refill Request Start: 01-31-2022 Refill Jaci qiu MD Work Phone: [facility] [place] Comment on above: Refill Request Start: 01-24-2022 End: 01-24-2022 Patient encounter procedure Jaci Arroyo MD Work Phone: [facility] [place] Comment on above: Fungal dermatitis (P rimary Dx) Start: 01-18-2022 Telephone encounter Jaci caballero MD Work Phone: [facility] [place] Comment on above: missed home health v isit Start: 01-02-2022 Telephone encounter Jaci caballero MD Work Phone: [facility] [place] Comment on above: Insurance Authorizat ion Start: 12-06-2021 Telephone encounter Jorge Cardoso MD Work Phone: General Surgery Comment on above: Rescheduling Appoint ment (EGD and colonoscopy) Start: 12-01-2021 Telephone encounter Jaci caballero MD Work Phone: [facility] [place] Comment on above: home health calling for verbal order Start: 11-22-2021 Telephone encounter Jaci caballero MD Work Phone: [facility] [place] Comment on above: Orders Start: 11-11-2021 Non-patient / Non-visit Dr. Jimi Arroyo Work Phone: [facility] Start: 11-10-2021 End: 11-10-[address] Jaci Arroyo Work Phone: [facility]Pulmonary Services/Neurology Start: 11-07-2021 End: 11-07-2021 ambulatory Jaci Arroyo MD Work Phone: [facility] [place] Comment on above: Right hemiplegia (HC C) (Primary Dx); Paroxysmal atrial fibrillation (HCC); Coronary artery disease involving [place] coronary artery of [place] heart without angina pectoris; Essential hypertension; Hyperlipidemia, unspecified hyperlipidemia type; Cerebrovascular accident (CVA), unspecified mechanism (HCC); Chronic insomnia; Anxiety; Shortness of breath Start: 11-07-2021 End: 11-07-2021 Telemedicine consultation with patient Jaci Arroyo MD Work Phone: [facility] Start: 10-31-2021 Telephone encounter Jaci caballero MD Work Phone: [facility] [place] Comment on above: Patient Update Start: 10-06-2021 End: 10-06-[address] Jaci Arroyo Work Phone: [facility] Start: 10-04-2021 Telephone encounter Jorge Cardoso MD Work Phone: General Surgery Comment on above: 12-25-2021 Colon EGD Michel Start: 09-26-2021 End: 09-26-[address] Jaci Arroyo Work Phone: [facility] Start: 08-30-[address] Jaci Arroyo Work Phone: [facility] Start: 08-23-2021 Non-patient / Non-visit Dr. Jimi Arroyo Work Phone: [facility] Start: 08-22-2021 Non-patient / Non-visit Dr. Jimi Arroyo Work Phone: [facility] Start: 08-21-2021 Non-patient / Non-visit Dr. Jimi Arroyo Work Phone: [facility] Start: 08-20-2021 Non-patient / Non-visit Dr. Jimi Arroyo Work Phone: [facility] Start: 08-19-2021 Non-patient / Non-visit Dr. Jimi Arroyo Work Phone: [facility] Start: 08-18-2021 Non-patient / Non-visit Dr. Jimi Arroyo Work Phone: [facility] Start: 08-17-2021 Non-patient / Non-visit Dr. Jimi Arroyo Work Phone: [facility] Start: 08-17-2021 Non-patient / Non-visit Dr. Jimi Arroyo Work Phone: [facility] Start: 08-16-2021 End: 08-23-2021 Evaluation and management of inpatient Dr. Jaci Arroyo Work Phone: [facility]Pro[facility] Start: 01-23-2019 Patient encounter procedure DAVID AVILA Facility:[facility] Start: 07-11-2018 End: 07-11-2018 Patient encounter procedure DAVID AVILA Facility:[facility] Start: 02-18-2018 Patient encounter procedure KAREEM SALDANA Facility:[facility] Start: 01-10-2018 End: 01-10-2018 Patient encounter procedure LISA NAYLOR Facility:[facility] Start: 12-03-2017 End: 12-03-2017 Evaluation and management of inpatient FIRAS AL-ALI Facility:[facility] Procedures Date Procedure Procedure Detail Performing Clinician Start: 05-07-2024 Mra head w/o contrst material Dania Aj MD Work Phone: Start: 04-02-2024 Lipid 1996 panel - Serum or Plasma Jaci Arroyo MD Work Phone: Start: 12-31-2023 Adult depression screening assessment Mohinder Burns MD Work Phone: Start: 11-25-2023 Lipid 1996 panel - Serum or Plasma Jaci Arroyo MD Work Phone: Start: 09-26-[address] Jaci Arroyo Work Phone: Start: 08-20-[address] Jaci Arroyo Work Phone: Start: 08-09-[address] Jaci Arroyo Work Phone: Start: 08-08-[address] Jaci Arroyo Work Phone: Start: 08-07-[address] Jaci Arroyo Work Phone: Start: 08-07-[address] Jaci Arroyo Work Phone: Start: 08-07-2023 Open reduction with internal fixation Dr. Jaci Arroyo Work Phone: Start: 06-19-2023 Sigmoidoscopy flx dx w/collj spec br/wa if pfrmd [facility] Provider Start: 06-12-2023 Mri pelvis w/o & w/contrast material Jorge Cardoso MD Work Phone: Start: 06-12-2023 Ct abdomen & pelvis w/contrast material Jorge Cardoso MD Work Phone: Start: 06-11-2023 Evi-Sunpreme COVID-19 VACCINE (2022- SEASON) AGE 12+ YR Jaci Arroyo MD Work Phone: Start: 06-06-2023 Lipid 1996 panel - Serum or Plasma Mariano Karuna BUILDING EQUIPMENT INSPECTOR.OPERATIONS LABEL CLERK Work Phone: Start: 05-22-[address] Jaci Arroyo Work Phone: Start: 04-10-2023 Colonoscopy flx dx w/collj spec when pfrmd Jorge Cardoso MD Work Phone: Start: 04-10-2023 Esophagogastroduodenoscopy transoral diagnostic Jorge Cardoso MD Work Phone: Start: 04-10-2023 Colonoscopy Jorge Cardoso MD Work Phone: Start: 03-12-2023 Brncdilat rspse spmtry pre&post-brncdilat admn Kimo Mcgrath MD Work Phone: Start: 12-13-2022 Lipid 1996 panel - Serum or Plasma Mariano Karuna BUILDING EQUIPMENT INSPECTOR.OPERATIONS LABEL CLERK Work Phone: Start: 12-04-2022 Radiologic exam chest 2 views Jaci caballero MD Work Phone: Start: 12-04-2022 End: 02-26-2023 H/O: tracheostomy Tracheostomy status Jaci Arroyo MD Work Phone: Start: 11-11-2022 Plain chest X-ray Dr. Jaci Arroyo Work Phone: Start: 08-16-2022 Plain chest X-ray Dr. Jaci Arroyo Work Phone: Start: 05-07-2022 CT of chest without contrast Start: 11-10-2021 CT of chest without contrast Dr. Jaci Arroyo Work Phone: Start: 08-23-2021 SARS-CoV-2 Antigen (Rapid) Dr. Jaci Arroyo Work Phone: Start: 08-19-2021 Measurement of occult blood in stool specimen using immunoassay Dr. Jaci Arroyo Work Phone: Start: 08-18-[address] Jaci Arroyo Work Phone: Start: 08-17-2021 Magnetic resonance angiography of head without contrast Dr. Jaci Arroyo Work Phone: Start: 08-17-2021 MRI of brain without contrast Dr. Jaci Arroyo Work Phone: Start: 08-16-2021 Plain chest X-ray Dr. Jaci Arroyo Work Phone: Start: 08-16-2021 CT of head without contrast Dr. Jaci Arroyo Work Phone: Start: 02-03-2021 Adult depression screening assessment Jaci Arroyo MD Work Phone: Coronary artery bypass grafts x 5 KYLIE BLUM APRN-OPERATIONS LABEL CLERK H/O: tracheostomy Tracheostomy s tatus (HCC) Jaci Arroyo MD Work Phone: History of coronary artery bypass grafting History of coronary artery bypass, five Dania Aj MD Work Phone: History of coronary artery bypass grafting History of coronary artery bypass, five Mri (I-Stat/1.5t) Work Phone: History of coronary artery bypass grafting History of coronary artery bypass, five Michelle Jon LUNA Work Phone: Investigation of tra nsfusion reaction Dr. Jaci Arroyo Work Phone: Legionella pneumophi la antigen assay Dr. Jaci Arroyo Work Phone: Respiratory microbial culture Dr. Jaci Arroyo Work Phone: SARS-CoV-2 & FLU Antigen (Rapid) Dr. Jaci Arroyo Work Phone: Streptococcus pneumo niae Antigen (M Dr. Jaci Arroyo Work Phone: Urine culture Dr. Jaci Arroyo Work Phone: Viral antigen assay Dr. Jaci Arroyo Work Phone: Viral antigen assay Dr. Jaci Arroyo Work Phone: Plan of Treatment Date Care Activity Detail Author Start: 05-10-2031 Urine microalbumin profile DTaP,Tdap,Td Vaccine (2 - Td or Tdap) [facility] Start: 04-02-2029 Lipid panel Lipid Screening [facility] Start: 11-24-2028 Lipid panel Lipid Screening [facility] Start: 06-19-2028 Colorectal Cancer Screening Colorectal Cancer Screening [facility] Start: 06-19-2028 Screening for malignant neoplasm of colon [facility] Start: 06-19-2028 Sigmoidoscopy Sigmoidoscopy [facility] Start: 06-06-2028 Lipid 1996 panel - Serum or Plasma Lipid Screening [facility] Start: 06-06-2028 Lipid panel Lipid Screening [facility] Start: 12-14-2027 Lipid 1996 panel - Serum or Plasma Lipid Screening [facility] Start: 12-14-2027 LIPID SCREEN LIPID SCREEN [facility] Start: 04-02-2027 Diabetes Screening Diabetes Screening [facility] Start: 11-24-2026 Diabetes Screening Diabetes Screening [facility] Start: 10-02-2026 LIPID SCREEN LIPID SCREEN [facility] Start: 07-15-2026 Diabetes Screening Diabetes Screening [facility] Start: 06-06-2026 Diabetes Screening Diabetes Screening [facility] Start: 05-22-2026 Diabetes Screening Diabetes Screening [facility] Start: 05-09-2026 Diabetes Screening Diabetes Screening [facility] Start: 03-02-2026 Annual PCP Team Chronic Disease Visit Annual PCP Team Chronic Disease Visit [facility] Start: 02-26-2026 DIABETES SCREEN DIABETES SCREEN [facility] Start: 02-26-2026 Diabetes Screening Diabetes Screening [facility] Start: 02-18-2026 DIABETES SCREEN DIABETES SCREEN [facility] Start: 01-14-2026 Annual PCP Team Chronic Disease Visit Annual PCP Team Chronic Disease Visit [facility] Start: 12-13-2025 DIABETES SCREEN DIABETES SCREEN [facility] Start: 12-03-2025 Annual PCP Team Chronic Disease Visit Annual PCP Team Chronic Disease Visit [facility] Start: 12-03-2025 BP Controlled (<130/80) BP Controlled (<130/80) [facility] Start: 11-10-2025 BP Controlled (<130/80) BP Controlled (<130/80) [facility] Start: 11-08-2025 End: 11-08-2025 Patient encounter procedure 11/08/2025 2:20 PM EDT Office Visit Cardiology [address] [place] [address] Robin Johansen MD [address] [address] follow up Cardiology Comment on above: follow up Start: 11-02-2025 End: 11-02-2025 Patient encounter procedure Vasculary Surgery Comment on above: Dx: 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]; Subclavian artery stenosis, left [I77.1] follow up Start: 10-07-2025 Annual PCP Team Chronic Disease Visit Annual PCP Team Chronic Disease Visit [facility] Start: 10-06-2025 BP Controlled (<130/80) BP Controlled (<130/80) [facility] Start: 10-01-2025 DIABETES SCREEN DIABETES SCREEN [facility] Start: 09-27-2025 DIABETES SCREEN DIABETES SCREEN [facility] Start: 09-03-2025 BP Controlled (<130/80) BP Controlled (<130/80) [facility] Start: 07-13-2025 Annual PCP Team Chronic Disease Visit Annual PCP Team Chronic Disease Visit [facility] Start: 07-13-2025 BP Controlled (<130/80) BP Controlled (<130/80) [facility] Start: 07-05-2025 End: 07-05-2025 ambulatory 07/05/2025 2:45 PM EST [facility] Neurology [address] [place] [address] Phong Wilhelm MD [address] [place] [address] 6 mo fu Neurology Comment on above: 6 mo fu Start: 07-01-2025 Annual PCP Team Chronic Disease Visit Annual PCP Team Chronic Disease Visit [facility] Start: 07-01-2025 BP Controlled (<130/80) BP Controlled (<130/80) [facility] Start: 05-20-2025 BP Controlled (<130/80) BP Controlled (<130/80) [facility] Start: 04-22-2025 End: 04-22-2025 Follow-up encounter 04/22/2025 2:20 PM EDT [facility] Family Medicine [place] [address] [place], [place] [phone] Jaci Arroyo MD [address] [place], [place] [id number] 3 month follow up Family Medicine [place] Comment on above: 3 month follow up Start: 04-19-2025 End: 04-19-2025 Patient encounter procedure 04/19/2025 2:40 PM EDT Office Visit Family Medicine [place] [address] [place] [address] Jaci Arroyo MD [address] [place], [place] [phone] 6 month follow up Family [facility] [place] Comment on above: 6 month follow up Start: 04-16-2025 End: 07-16-2025 CBC panel - Blood by Automated count COMPLETE BLOOD COUNT Lab Routine Essential hypertension Expected: 04/16/2025 (Approximate), Expires: 07/16/2025 [facility] Comment on above: Expected: 04/16/2025 (Approximate), Expi res: 07/16/2025 Start: 04-16-2025 End: 07-16-2025 Comprehensive metabolic 2000 panel - Serum or Plasma COMPREHENSIVE METABOLIC PANEL Lab Routine Hyperlipidemia, unspecified hyperlipidemia type Essential hypertension Expected: 04/16/2025 (Approximate), Expires: 07/16/2025 [facility] Work Phone: Comment on above: Expected: 04/16/2025 (Approximate), Expi res: 07/16/2025 Start: 04-16-2025 End: 07-16-2025 Lipid 1996 panel - Serum or Plasma LIPID PANEL, FASTING Lab Routine Hyperlipidemia, unspecified hyperlipidemia type Essential hypertension Expected: 04/16/2025 (Approximate), Expires: 07/16/2025 [facility] Comment on above: Expected: 04/16/2025 (Approximate), Expi res: 07/16/2025 Start: 04-16-2025 End: 07-16-2025 Thyrotropin [Units/volume] in Serum or Plasma THYROID STIMULATING HORMONE Lab Routine Essential hypertension Moderate recurrent major depression (HCC) CVA, old, hemiparesis (HCC) Expected: 04/16/2025 (Approximate), Expires: 07/16/2025 [facility] Comment on above: Expected: 04/16/2025 (Approximate), Expi res: 07/16/2025 Start: 04-13-2025 End: 04-13-2025 Patient encounter procedure 04/13/2025 3:00 PM EDT Office Visit Family Dennys Napoles [address] [place] [address] Jaci Arroyo MD [address] [place], [place] [phone] 6 month follow up Family Dennys Napoles Comment on above: 6 month follow up Start: 04-09-2025 End: 04-09-2025 Patient encounter procedure 04/09/2025 11:00 AM EDT Office Visit Pulmonary Medicine [address] [address] Eliana Peng, BUILDING EQUIPMENT INSPECTOR.OPERATIONS LABEL CLERK [address] [place] [address] 6 month f/u (michel location per Dr. Johansen) Pulmonary Medicine Comment on above: 6 month f/u (michel location per Dr. Bj lilly) Start: 04-09-2025 End: 04-09-2025 ambulatory Pulmonary Medicine Comment on above: COPD, moderate (HCC) [J44.9] Start: 04-08-2025 End: 04-08-2025 Patient encounter procedure 04/08/2025 2:15 PM EDT Office Visit Pulmonary Medicine [address] [place], [place] [phone] Kimo Mcgrath MD [address] [place], [place] [phone] COPD, moderate (HCC) [J44.9] Pulmonary Medicine Comment on above: COPD, moderate (HCC) [J44.9] Start: 04-08-2025 End: 04-08-2025 ambulatory Pulmonary Lab Comment on above: COPD, moderate (HCC) [J44.9] Start: 04-05-2025 Influenza vaccination Influenza Vaccine (#1) [facility] Start: 04-03-2025 Annual PCP Team Chronic Disease Visit Annual PCP Team Chronic Disease Visit [facility] Start: 04-03-2025 BP Controlled (<130/80) BP Controlled (<130/80) [facility] in Start: 04-02-2025 Creatinine measurement Serum Creatinine [facility] Start: 04-02-2025 Hepatitis B surface antibody level LDL Cholesterol [facility] Start: 03-23-2025 BP Controlled (<130/80) BP Controlled (<130/80) [facility] in Start: 03-19-2025 DIABETES SCREEN DIABETES SCREEN [facility] Start: 03-02-2025 End: 03-02-2025 Patient encounter procedure 03/02/2025 1:00 PM EDT Office Visit Family Medicine [place] [address] [facility], [place] [phone] Mariano Beckman APRN.OPERATIONS LABEL CLERK [address] [place] [address] Ear Irrigation prior to Hearing Testing [facility] [place] Comment on above: Ear Irrigation prior to Hearing Testing Start: 02-23-2025 BP Controlled (<130/80) BP Controlled (<130/80) [facility] in Start: 02-01-2025 End: 02-01-2025 Patient encounter procedure 02/01/2025 9:40 AM EDT Office Visit Cardiology [address] [place] [address] Robin Johansen MD [address] [place] [address] [place] [address] 9 mo follow up R/S from 11/23 Cardiology Comment on above: 9 mo follow up R/S from 11/23 Start: 01-14-2025 End: 01-14-2025 Patient encounter procedure 01/14/2025 2:20 PM EDT Office Visit [facility] [place] [address] [place] [address] Jaci Arroyo MD [address] [place] [address] 01/13, respite stay, having frequent falls [facility] [place] Comment on above: discharge [facility] [address] 01/13, respite stay, [place] v[place] frequent falls Start: 01-05-2025 End: 01-05-2025 Patient encounter procedure 01/05/2025 10:30 AM EDT Office Visit Neurology [address] [place] [address] Seizure (HCC) [R56.9] Neurology Comment on above: Seizure (HCC) [R56.9] Start: 12-31-2024 End: 04-01-2025 PREGABALIN PREGABALIN Lab Routine Seizure (HCC) Expected: 12/31/2024, Expires: 04/01/2025 [facility] Work Phone: Comment on above: Expected: 12/31/2024, Expires: Start: 12-31-2024 End: 12-31-2024 ambulatory 12/31/2024 1:30 PM EDT [facility] Neurology [address] [place], [place] [phone] Joycelyn Woodruff MD [address] [place] [address] f/u Neurology Comment on above: f/u Start: 12-30-2024 Annual PCP Team Chronic Disease Visit Annual PCP Team Chronic Disease Visit [facility] Start: 12-30-2024 BP Controlled (<130/80) BP Controlled (<130/80) [facility] Start: 12-30-2024 Depression Screening Depression Screening [facility] Start: 12-30-2024 Hepatitis C screening Hepatitis C Screening [facility] Comment on above: Postponed from 1973 (Declined at t his time) Start: 12-15-2024 BP Controlled (<130/80) BP Controlled (<130/80) [facility] Start: 12-03-2024 End: 12-03-2024 Patient encounter procedure 12/03/2024 1:20 PM EDT Office Visit Family Medicine [place] [address] [place], [place] [phone] Consuelo Farooq APRN.[facility] [address] [place] [address] sinus congestion, deep cough x 1 week Family Medicine [place] Comment on above: sinus congestion, deep cough x 1 week Start: 11-24-2024 Creatinine measurement Serum Creatinine [facility] Start: 11-24-2024 Hepatitis B surface antibody level LDL Cholesterol [facility] Start: 11-23-2024 End: 11-23-2024 Patient encounter procedure Cardiology Comment on above: 9 mo follow up Start: 11-10-2024 End: 11-10-2024 Patient encounter procedure Vasculary Surgery Comment on above: Carotid carotid US follow up Start: 11-05-2024 End: 11-05-2024 Patient encounter procedure 11/05/2024 1:00 PM EDT Office Visit Neurology [address] [place], [place] [phone] Joycelyn Woodruff MD [address] [place] [address] follow up Neurology Comment on above: follow up Start: 11-02-2024 End: 11-02-2024 Patient encounter procedure 11/02/2024 1:15 PM EDT Appointment [facility] Endoscopy [address] [place] [address] Ashly Stark, DO [address] [place] [address] colon keep with walker [facility] Endoscopy Comment on above: colon keep with walker Start: 10-27-2024 End: 10-27-2024 Patient encounter procedure 10/27/2024 11:00 AM EDT Office Visit Vascular Surgery [address] [place] [address] Deanne Cruz, DO [address] [place] [address] follow up after testing Vascular Surgery Comment on above: follow up after testing Start: 10-07-2024 End: 10-07-2024 Patient encounter procedure 10/07/2024 3:00 PM EST Office Visit Family Medicine [place] [address] [place] [address] Jessie Harmon APRN.OPERATIONS LABEL CLERK [address] [place] [address] Discharge from [facility] 10/03/24 Family Medicine [place] Comment on above: Discharge from [facility] 10/03/24 Start: 10-06-2024 End: 10-06-2024 Patient encounter procedure 10/06/2024 1:30 PM EST Office Visit Pulmonary Medicine [address] [place] [address] Earl Elise APRN.OPERATIONS LABEL CLERK [address] [place] [address] 6 MO OV Pulmonary Medicine Comment on above: 6 MO OV Start: 10-05-2024 End: 10-05-2024 Patient encounter procedure 10/05/2024 2:00 PM EST Office Visit Family Medicine [place] [address] [place], [place] [phone] Jaci Arroyo MD [address] [place], [place] [phone] hosp follow up [facility] 09/15-09/18. Falls, physical therapy Family Medicine [place] Comment on above: hosp follow up [facility] 09/15-09/05 4. Falls, physical therapy Start: 10-02-2024 DIABETES SCREEN DIABETES SCREEN [facility] Start: 10-01-2024 BP Controlled (<130/80) BP Controlled (<130/80) [facility]ic Start: 10-01-2024 End: 10-01-2024 US Upper extremity artery US ARM ARTERIAL UNL [facility]AS LAB Vascular Lab Routine Subclavian artery stenosis, left (HCC) Expected: 10/01/2024, Expires: 10/01/2024 [facility] Work Phone: Comment on above: Expected: 10/01/2024, Expires: Start: 10-01-2024 End: 10-01-2024 Follow-up encounter 10/01/2024 1:00 PM EST [facility] Neurology [address] [place] [address] Joycelyn Woodruff MD [address] [place] [address] follow up Neurology Comment on above: follow up Start: 09-27-2024 Annual PCP Team Chronic Disease Visit Annual PCP Team Chronic Disease Visit [facility] Start: 09-27-2024 BP Controlled (<130/80) BP Controlled (<130/80) [facility] Start: 09-25-2024 End: 09-25-2024 ambulatory 09/25/2024 1:30 PM EST [facility] Pulmonary Medicine [address] [place], [place] [phone] Earl Elise APRN.OPERATIONS LABEL CLERK [address] [facility] [address] [place] [address] 6 MO OV Pulmonary Medicine Comment on above: 6 MO OV Start: 09-25-2024 End: 09-25-2024 Patient encounter procedure 09/25/2024 1:30 PM EST Office Visit Pulmonary Medicine [address] [place] [address] Earl Elise APRN.OPERATIONS LABEL CLERK [address] [place] [address] 6 MO OV Pulmonary Medicine Comment on above: 6 MO OV Start: 09-24-2024 End: 09-24-2024 Patient encounter procedure 09/24/2024 2:45 PM EST Office Visit Pulmonary Medicine [address] [place] [address] Kimo Mcgrath MD [address] [place] [address] 6 MO OV Pulmonary Medicine Comment on above: 6 MO OV Start: 09-21-2024 End: 09-21-2024 Follow-up encounter Neurology Comment on above: 4 month follow up Start: 09-21-2024 End: 09-21-2024 Patient encounter procedure Neurology Comment on above: 4 month follow up Start: 09-17-2024 End: 09-17-2024 Patient encounter procedure Vasculary Surgery Comment on above: Occlusion of left carotid artery [I65.22 ] Start: 09-16-2024 BP Controlled (<130/80) BP Controlled (<130/80) [facility] Start: 09-14-2024 End: 09-14-2024 Patient encounter procedure 09/14/2024 9:30 AM EST Office Visit Pulmonary Medicine [address] [place] [address] Kimo Mcgrath MD [address] [place] [address] 6 MO OV Pulmonary Medicine Comment on above: 6 MO OV Start: 09-08-2024 End: 09-08-2024 Patient encounter procedure Vasculary Surgery Comment on above: Occlusion of left carotid artery [I65.22 ] Subclavian artery st enosis, left (HCC) [I77.1] follow up after test ing Start: 09-03-2024 End: 09-03-2024 Patient encounter procedure 09/03/2024 2:00 PM EST Office Visit Neurology [address] [place] [address] Joycelyn Woodruff MD [address] [place] [address] NEW CONSULT - PENDING VEEG ORDERS; DO NOT CANCEL OR RESCHEDULE, TRANSFER TO [facility] Neurology Comment on above: NEW CONSULT - PENDING VEEG ORDERS; DO NO T CANCEL OR RESCHEDULE, TRANSFER TO [facility] Start: 08-13-2024 End: 08-13-2024 Patient encounter procedure 08/13/2024 3:30 PM EST Office Visit Neurology [address] [place] [address] Joycelyn Woodruff MD [address] [place] [address] NEW CONSULT - PENDING VEEG ORDERS; DO NOT CANCEL OR RESCHEDULE, TRANSFER TO [facility] Neurology Comment on above: NEW CONSULT - PENDING VEEG ORDERS; DO NO T CANCEL OR RESCHEDULE, TRANSFER TO [facility] Start: 08-05-2024 Advance Directive Discussion Advance Directive Discussion [facility] Start: 08-05-2024 Medicare Advantage Annual Wellness Visit Medicare Advantage Annual Wellness Visit [facility] Start: 08-04-2024 End: 08-04-2024 Patient encounter procedure 08/04/2024 12:45 PM EST Office Visit Neurology [address] [place], [place] [phone] Michelle Webb PA-C [address] [place], [place] [phone] [facility] f/u Pnemonia/ seizures Neurology Comment on above: [facility] f/u Pnemonia/ seizures Start: 07-24-2024 End: 07-24-2024 Patient encounter procedure 07/24/2024 11:00 AM EST Office Visit PHYSICAL MEDICINE & REHAB [address] [address] Jessie Gardner APRN.OPERATIONS LABEL CLERK [address] [place] [address] Follow up [facility] REHAB Comment on above: Follow up Start: 07-21-2024 Covid-19 Vaccine () Covid-19 Vaccine () [facility] Start: 07-15-2024 BP Controlled (<130/80) BP Controlled (<130/80) [facility] in Start: 07-15-2024 Complete blood count Hemoglobin/Hematocrit [facility] Start: 07-15-2024 Creatinine measurement Serum Creatinine [facility] Start: 07-15-2024 Hemoglobin/Hematocrit Hemoglobin/Hematocrit [facility] Start: 07-15-2024 Serum Creatinine Serum Creatinine [facility] Start: 07-13-2024 End: 10-12-2024 Comprehensive metabolic 2000 panel - Serum or Plasma COMPREHENSIVE METABOLIC PANEL Lab Routine Seizure disorder (HCC) Expected: 07/13/2024, Expires: 10/12/2024 [facility] Work Phone: Comment on above: Expected: 07/13/2024, Expires: Start: 07-10-2024 End: 07-10-2024 Patient encounter procedure [facility]ICINE [facility] REHAB Comment on above: History of stroke [Z86.73]; Left carotid artery occlusion [I65.22]; Stenosis of left subclavian artery (HCC) [I77.1]; History of obstructive sleep apnea [Z86.69]; History of atrial fibrillation [Z86.79]; History of coronary artery bypass, five [Z95.1]; 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 [I69.320]; Spasticity [R25.2] History of stroke [Z 86.73]; Altered mental status, unspecified altered mental status type [R41.82] Start: 07-08-2024 BP Controlled (<130/80) BP Controlled (<130/80) [facility] Start: 07-07-2024 End: 07-07-2024 Patient encounter procedure 07/07/2024 4:15 PM EST Office Visit Neurology [address] [place], [place] [address] Michelle Webb PA-C [address] [place] [address] [facility] follow up see phone note from Dr Aj Neurology Comment on above: [facility] follow up see rosa ne note from Dr Aj Start: 07-06-2024 End: 07-06-2024 ambulatory 07/06/2024 2:30 PM [facility] [address] [place] [phone] Zac Garza APRN.[facility] [address] [place] [phone] new Cerebral aneurysm [ Endovascular Center Comment on above: new Cerebral aneurysm [ Start: 07-01-2024 End: 07-01-2024 Patient encounter procedure 07/01/2024 12:40 PM EST Office Visit PHYSICAL MEDICINE & REHAB [address] [address] Jessie Gardner APRN.OPERATIONS LABEL CLERK [address] [place] [address] Follow up [facility]INE [facility] REHAB Comment on above: Follow up Start: 07-01-2024 End: 07-01-2024 Patient encounter procedure 07/01/2024 10:20 AM EST Office Visit Family Medicine [place] [address] [place], [place] [phone] Jessie Harmon APRN.OPERATIONS LABEL CLERK [address] [place], [place] [phone] [facility] ER again for breakthrough seizures, [facility] ER on 06/26 and diagnosed with Pneumonia was admitted and d/c 06/28 Family Medicine [place] Comment on above: [facility] ER again for breakthrough seizures, [facility] ER on 06/26 and diagnosed with Pneumonia was admitted and d/c 06/28 Start: 06-29-2024 End: 06-29-2024 Patient encounter procedure [facility] Endoscopy Comment on above: colon keep with walker Start: 06-26-2024 End: 06-26-2024 Patient encounter procedure 06/26/2024 2:00 PM EST Office Visit Neurology [address] [place] [address] Dania Aj Jr., MD [address] [facility] [address] [place] [phone] follow up after testing Neurology Comment on above: follow up after testing Start: 06-24-2024 End: 06-24-2024 Patient encounter procedure [facility] Endoscopy Comment on above: colon Start: 06-11-2024 Annual PCP Team Chronic Disease Visit Annual PCP Team Chronic Disease Visit [facility] Start: 06-11-2024 BP Controlled (<130/80) BP Controlled (<130/80) [facility]ic Start: 06-06-2024 Hepatitis B surface antibody level LDL Cholesterol [facility] Start: 06-06-2024 Serum Creatinine Serum Creatinine [facility] Start: 06-05-2024 End: 06-05-2024 ambulatory 06/05/2024 1:20 PM EDT [facility] PH[facility]ICAL MEDICINE & REHAB [address] [address] Jessie Gardner, BUILDING EQUIPMENT INSPECTOR.OPERATIONS LABEL CLERK [address] [place] [address] History of stroke [Z86.73]; Spasticity [R25.2] PH[facility]ICAL MEDICINE [facility] REHAB Comment on above: History of stroke [Z86.73]; Spasticity [ R25.2] Start: 06-01-2024 End: 06-01-2024 ambulatory 06/01/2024 10:00 AM EDT [facility] NEUROLOGY [address] [facility] [address] [place] [address] Gloria Sawyer MD [address] [place], [place] [phone] Cerebral Aneurysm NEUROLOGY Comment on above: Cerebral Aneurysm Start: 05-25-2024 End: 05-25-2024 Patient encounter procedure 05/25/2024 2:00 PM EDT Office Visit PHYSICAL MEDICINE & REHAB [address] [address] Jessie Gardner APRN.OPERATIONS LABEL CLERK [address] [place] [address] History of stroke [Z86.73]; Spasticity [R25.2] PHYSICAL MEDICINE [facility] REHAB Comment on above: History of stroke [Z86.73]; Spasticity [ R25.2] Start: 05-22-2024 Serum Creatinine Serum Creatinine [facility] Start: 05-21-2024 BP Controlled (<130/80) BP Controlled (<130/80) [facility] in Start: 05-20-2024 End: 05-20-2024 Patient encounter procedure 05/20/2024 9:30 AM EDT Office Visit Neurology [address] [place] [address] Michelle Webb PA-C [address] [place], [place] [phone] follow up after testing 8.5.24 glenny WJN- testing ordered MRI, MRA, EEG Neurology Comment on above: follow up after testing 8.5.24 glenny WJN- testing ordered MRI, MRA, EEG Start: 05-09-2024 Hemoglobin/Hematocrit Hemoglobin/Hematocrit [facility] Start: 05-09-2024 Serum Creatinine Serum Creatinine [facility] Start: 05-08-2024 End: 05-08-2024 Patient encounter procedure PHYSICAL MEDICINE & REHAB Comment on above: History of stroke [Z86.73]; Left carotid artery occlusion [I65.22]; Stenosis of left subclavian artery (HCC) [I77.1]; History of obstructive sleep apnea [Z86.69]; History of atrial fibrillation [Z86.79]; History of coronary artery bypass, five [Z95.1]; 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 [I69.320]; Spasticity [R25.2] History of stroke [Z 86.73]; Altered mental status, unspecified altered mental status type [R41.82] Start: 05-07-2024 End: 05-07-2024 Patient encounter procedure Radiology Comment on above: History of stroke [Z86.73]; Left carotid artery occlusion [I65.22]; Stenosis of left subclavian artery (HCC) [I77.1]; History of obstructive sleep apnea [Z86.69]; History of atrial fibrillation [Z86.79]; History of coronary artery bypass, five [Z95.1]; 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 [I69.320]; Spasticity [R25.2]; Other symptoms and signs involving the nervous system [R29.818]; 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]; Start: 04-19-2024 Annual PCP Team Chronic Disease Visit Annual PCP Team [facility] Disease Visit [facility] [facility] Start: 04-19-2024 BP Controlled (<130/80) BP Controlled (<130/80) [facility] Start: 04-10-2024 Colonoscopy COLONOSCOPY [facility] Start: 04-10-2024 COLORECTAL CANCER SCREENING COLORECTAL CANCER SCREENING [facility] Start: 04-10-2024 Screening for malignant neoplasm of colon [facility]oscopy [facility] Start: 04-08-2024 End: 04-08-2024 Patient encounter procedure 04/08/2024 12:45 PM EDT Appointment [facility] [address] [place] [id number] History of stroke [Z86.73]; Left carotid artery occlusion [I65.22]; Stenosis of left subclavian artery (HCC) [I77.1]; History of obstructive sleep apnea [Z86.69]; History of atrial fibrillation [Z86.79]; History of coronary artery bypass, five [Z95.1]; 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 [I69.320]; Spasticity [R25.2]; Other symptoms and signs involving the nervous system [R29.818]; 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]; [facility] Comment on above: History of stroke [Z86.73]; Left carotid artery occlusion [I65.22]; Stenosis of left subclavian artery (HCC) [I77.1]; History of obstructive sleep apnea [Z86.69]; History of atrial fibrillation [Z86.79]; History of coronary artery bypass, five [Z95.1]; 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 [I69.320]; Spasticity [R25.2]; Other symptoms and signs involving the nervous system [R29.818]; 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]; Start: 04-08-2024 End: 04-08-2024 Patient encounter procedure [facility] Comment on above: History of stroke [Z86.73]; Left carotid artery occlusion [I65.22]; Stenosis of left subclavian artery (HCC) [I77.1]; History of obstructive sleep apnea [Z86.69]; History of atrial fibrillation [Z86.79]; History of coronary artery bypass, five [Z95.1]; 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 [I69.320]; Spasticity [R25.2]; Other symptoms and signs involving the nervous system [R29.818]; 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 Start: 04-03-2024 End: 04-03-2024 Patient encounter procedure 04/03/2024 4:20 PM EDT Office Visit Family Dennys Napoles [address] [place] [phone] Jaci Arroyo MD [address] [place] [phone] 3 mo f/u Family Dennys Napoles Comment on above: 3 mo f/u Start: 04-01-2024 End: 07-01-2024 Comprehensive metabolic 2000 panel - Serum or Plasma COMPREHENSIVE METABOLIC PANEL Lab Routine Hypertension, essential Stage 3a chronic kidney disease (HCC) Elevated glucose Hyperlipidemia, unspecified hyperlipidemia type Expected: 04/01/2024 (Approximate), Expires: 07/01/2024 [facility] Work Phone: Comment on above: Expected: 04/01/2024 (Approximate), Expi res: 07/01/2024 Start: 04-01-2024 End: 07-01-2024 Lipid 1996 panel - Serum or Plasma LIPID PANEL BASIC Lab Routine Hypertension, essential Elevated glucose Hyperlipidemia, unspecified hyperlipidemia type Expected: 04/01/2024 (Approximate), Expires: 07/01/2024 [facility] Comment on above: Expected: 04/01/2024 (Approximate), Expi res: 07/01/2024 Start: 03-23-2024 End: 03-23-2024 Patient encounter procedure 03/23/2024 2:45 PM EDT Office Visit Pulmonary Medicine [address] [place], [place] [phone] Kimo Mcgrath MD [address] [facility] [address] 6 month follow up Pulmonary Medicine Comment on above: 6 month follow up Start: 03-21-2024 End: 06-20-2024 Ferritin [Mass/volume] in Serum or Plasma FERRITIN Lab Routine Low iron stores Expected: 03/21/2024 (Approximate), Expires: 06/20/2024 [facility] Work Phone: Comment on above: Expected: 03/21/2024 (Approximate), Expi res: 06/20/2024 Start: 03-21-2024 End: 06-20-2024 Iron and Iron binding capacity panel - Serum or Plasma IRON AND TIBC Lab Routine Low iron stores Expected: 03/21/2024 (Approximate), Expires: 06/20/2024 [facility] Comment on above: Expected: 03/21/2024 (Approximate), Expi res: 06/20/2024 Start: 03-12-2024 BP CONTROLLED (<130/80) BP CONTROLLED (<130/80) [facility] Start: 03-09-2024 End: 03-09-2024 Patient encounter procedure Neurology Comment on above: Consult H/O stroke Follow to sleep Neuro- h/o stroke Start: 03-07-2024 ANNUAL PCP TEAM CHRONIC DISEASE VISIT ANNUAL PCP TEAM CHRONIC DISEASE VISIT [facility] Start: 03-07-2024 BP CONTROLLED (<130/80) BP CONTROLLED (<130/80) [facility] Start: 03-02-2024 End: 03-02-2024 Patient encounter procedure 03/02/2024 3:00 PM EDT Office Visit Cardiology [address] [place] [phone] Robin Johansen MD [address] [place], [place] [phone] 6 month follow up Cardiology Comment on above: 6 month follow up Start: 03-02-2024 End: 06-01-2024 Thyrotropin [Units/volume] in Serum or Plasma THYROID STIMULATING HORMONE Lab Routine Paroxysmal atrial fibrillation (HCC) Expected: 03/02/2024, Expires: 06/01/2024 [facility] Work Phone: Comment on above: Expected: 03/02/2024, Expires: Start: 02-27-2024 ANNUAL PCP TEAM CHRONIC DISEASE VISIT ANNUAL PCP TEAM CHRONIC DISEASE VISIT [facility] Start: 02-27-2024 BP CONTROLLED (<130/80) BP CONTROLLED (<130/80) [facility] Start: 02-27-2024 SERUM CREATININE SERUM CREATININE [facility] Start: 02-24-2024 End: 02-24-2024 Patient encounter procedure 02/24/2024 3:45 PM EDT Office Visit General Surgery [address] [place] [phone] Lacy Lai MD [address] [place] [phone] repeat colonoscopy, last colonoscopy 04/10/23 with Walker, repeat unsure, biopsy taken tubular adenoma, 06/19/23 sigmoidoscopy- [facility] General Surgery Comment on above: repeat colonoscopy, last colonoscopy 04/10 with Walker, repeat unsure, biopsy taken tubular adenoma, 06/19/23 sigmoidoscopy- ST[facility] Start: 02-11-2024 End: 02-11-2024 Patient encounter procedure General Surgery Comment on above: repeat colonoscopy, last colonoscopy 04/10 with Walker, repeat unsure, biopsy taken tubular adenoma, 06/19/23 sigmoidoscopy- ST[facility] Start: 12-31-2023 End: 12-31-2023 Patient encounter procedure 12/31/2023 2:20 PM EDT Office Visit Family [facility] [address] [place], [place] [phone] Jaci Arroyo MD [address] [place], [place] [address] 3 month follow up Family [facility] Comment on above: 3 month follow up Start: 12-31-2023 End: 12-31-2023 Patient encounter procedure 12/31/2023 12:30 PM EDT Office Visit General Surgery [address] [place], [place] [phone] Jorge Cardoso MD [address] [phone] repeat colonoscopy, last colonoscopy 04/10/23 with Walker, repeat unsure, biopsy taken tubular adenoma, 06/19/23 sigmoidoscopy- STB General Surgery Comment on above: repeat colonoscopy, last colonoscopy 04/10 with Walker, repeat unsure, biopsy taken tubular adenoma, 06/19/23 sigmoidoscopy- STB Start: 12-25-2023 BP CONTROLLED (<130/80) BP CONTROLLED (<130/80) [facility] Start: 12-23-2023 End: 03-23-2024 CBC W Auto Differential panel - Blood COMPLETE BLOOD COUNT AND DIFFERENTIAL Lab Routine Iron deficiency anemia due to chronic blood loss Expected: 12/23/2023 (Approximate), Expires: 03/23/2024 [facility] Work Phone: Comment on above: Expected: 12/23/2023 (Approximate), Expi res: 03/23/2024 Start: 12-23-2023 End: 03-23-2024 Comprehensive metabolic 2000 panel - Serum or Plasma COMPREHENSIVE METABOLIC PANEL Lab Routine Elevated glucose Hypertension, essential Hyperlipidemia, unspecified hyperlipidemia type Expected: 12/23/2023 (Approximate), Expires: 03/23/2024 [facility] Work Phone: Comment on above: Expected: 12/23/2023 (Approximate), Expi res: 03/23/2024 Start: 12-23-2023 End: 03-23-2024 Hemoglobin A1c in Blood HEMOGLOBIN A1C Lab Routine Elevated glucose Expected: 12/23/2023 (Approximate), Expires: 03/23/2024 [facility] Work Phone: Comment on above: Expected: 12/23/2023 (Approximate), Expi res: 03/23/2024 Start: 12-23-2023 End: 03-23-2024 Lipid 1996 panel - Serum or Plasma LIPID PANEL BASIC Lab Routine Elevated glucose Hypertension, essential Cerebrovascular accident (CVA), unspecified mechanism (HCC) Hyperlipidemia, unspecified hyperlipidemia type Coronary artery disease involving [place] coronary artery of [place] heart without angina pectoris Expected: 12/23/2023 (Approximate), Expires: 03/23/2024 [facility] Work Phone: Comment on above: Expected: 12/23/2023 (Approximate), Expi res: 03/23/2024 Start: 12-23-2023 End: 12-23-2023 Patient encounter procedure 12/23/2023 2:00 PM EDT Office Visit General Surgery [address] [place] [phone] Foreign Patten MD [address] [place] [phone] repeat colonoscopy General Surgery Comment on above: repeat colonoscopy Start: 12-16-2023 End: 12-16-2023 Patient encounter procedure 12/16/2023 3:30 PM EDT Office Visit Neurology [address] [place] [phone] Dena Bazan APRN.OPERATIONS LABEL CLERK [address] [place] [address] DARON (obstructive sleep apnea) [G47.33] Neurology Comment on above: DARON (obstructive sleep apnea) [G47.33] Start: 12-16-2023 End: 03-16-2024 25-hydroxyvitamin D3 [Mass/volume] in Serum or Plasma [facility] Comment on above: Expected: 12/16/2023, Expires: Start: 12-16-2023 End: 03-16-2024 Ferritin [Mass/volume] in Serum or Plasma [facility] Comment on above: Expected: 12/16/2023, Expires: Start: 12-16-2023 End: 03-16-2024 Iron and Iron binding capacity panel - Serum or Plasma [facility] Comment on above: Expected: 12/16/2023, Expires: Start: 12-14-2023 Hepatitis B surface antibody level LDL CHOLESTEROL [facility] Start: 12-05-2023 ANNUAL PCP TEAM CHRONIC DISEASE VISIT ANNUAL PCP TEAM CHRONIC DISEASE VISIT [facility] Start: 12-05-2023 BP CONTROLLED (<130/80) BP CONTROLLED (<130/80) [facility] Start: 11-18-2023 ANNUAL PCP TEAM CHRONIC DISEASE VISIT ANNUAL PCP TEAM CHRONIC DISEASE VISIT [facility] Start: 11-18-2023 BP CONTROLLED (<130/80) BP CONTROLLED (<130/80) [facility] Start: 10-16-2023 BP CONTROLLED (<130/80) BP CONTROLLED (<130/80) [facility] Start: 10-10-2023 Covid-19 Vaccine ( season) Covid-19 Vaccine () [facility] Start: 09-27-2023 ANNUAL PCP TEAM CHRONIC DISEASE VISIT ANNUAL PCP TEAM CHRONIC DISEASE VISIT [facility] Start: 09-27-2023 BP CONTROLLED (<130/80) BP CONTROLLED (<130/80) [facility] Start: 09-11-2023 End: 12-11-2023 CBC W Auto Differential panel - Blood CBC + DIFF Lab Routine Iron deficiency anemia due to chronic blood loss Expected: 09/11/2023 (Approximate), Expires: 12/11/2023 [facility] Work Phone: Comment on above: Expected: 09/11/2023 (Approximate), Expi res: 12/11/2023 Start: 09-11-2023 End: 12-11-2023 Comprehensive metabolic 2000 panel - Serum or Plasma COMP METABOLIC PANEL Lab Routine Essential hypertension Hyperlipidemia, unspecified hyperlipidemia type Elevated glucose Expected: 09/11/2023 (Approximate), Expires: 12/11/2023 [facility] Work Phone: Comment on above: Expected: 09/11/2023 (Approximate), Expi res: 12/11/2023 Start: 09-11-2023 End: 12-11-2023 Hemoglobin A1c in Blood HGB A1C Lab Routine Elevated glucose Expected: 09/11/2023 (Approximate), Expires: 12/11/2023 [facility] Work Phone: Comment on above: Expected: 09/11/2023 (Approximate), Expi res: 12/11/2023 Start: 09-11-2023 End: 12-11-2023 Lipid 1996 panel - Serum or Plasma LIPID PANEL BASIC Lab Routine Essential hypertension Cerebrovascular accident (CVA), unspecified mechanism (HCC) Hyperlipidemia, unspecified hyperlipidemia type Coronary artery disease involving [place] coronary artery of [place] heart without angina pectoris Elevated glucose Expected: 09/11/2023 (Approximate), Expires: 12/11/2023 [facility] Work Phone: Comment on above: Expected: 09/11/2023 (Approximate), Expi res: 12/11/2023 Start: 09-07-2023 ANNUAL PCP TEAM CHRONIC DISEASE VISIT ANNUAL PCP TEAM CHRONIC DISEASE VISIT [facility] Start: 08-21-2023 BP CONTROLLED (<130/80) BP CONTROLLED (<130/80) [facility] Start: 08-09-2023 Patient discharge [facility] Start: 08-08-2023 Referral to occupational therapist [facility] Start: 08-08-2023 Referral to service [facility] Start: 08-08-2023 Urine culture Urine Culture [facility] Start: 08-08-2023 End: 08-08-2023 [facility] Start: 08-08-2023 Inhalation therapy procedure [facility] Start: 08-07-2023 Continuous pulse oximetry [facility] Start: 08-07-2023 Referral to service [facility] Start: 08-07-2023 Referral to occupational therapist [facility] Start: 08-07-2023 Oxygen therapy [facility] Start: 08-07-2023 Application of intermittent pneumatic compression device [facility] Start: 08-07-2023 Following clinical pathway protocol [facility] Start: 08-07-2023 Anesthesia closed proc lower leg ankle & foot ANESTH LOWER LEG PROCEDURE [facility] Start: 08-07-2023 Injection aa&/strd sciatic nerve NJX AA&/STRD SCIATIC NRV IMG [facility] Start: 08-07-2023 Open treatment bimalleolar ankle fracture TREATMENT OF ANKLE FRACTURE [facility] Start: 08-07-2023 Admission procedure [facility] Start: 08-07-2023 Consultation [facility] Start: 08-07-2023 Touch weight-bearing gait training [facility] Start: 08-07-2023 Application of ice collar, cap or bag [facility] Start: 08-07-2023 Assessment of risk of venous thromboembolism [facility] Start: 08-07-2023 Catheterization of vein [facility] Start: 08-07-2023 Deep breathing and coughing exercises [facility] Start: 08-07-2023 Following clinical pathway protocol [facility] Start: 08-07-2023 Incentive spirometry [facility] Start: 08-07-2023 Introduction of urinary catheter [facility] Start: 08-07-2023 Patient education [facility] Start: 08-07-2023 Taking patient vital signs [facility] Start: 08-07-2023 Vital signs measurements [facility] Start: 08-07-2023 End: 08-07-2023 [facility] Start: 08-07-2023 Medication education [facility] Start: 08-05-2023 Advance Directive Discussion Advance Directive Discussion [facility] Start: 08-05-2023 Behavioral Health Screening Behavioral Health Screening [facility] Start: 08-05-2023 Depression Assessment Depression Assessment [facility] Start: 07-15-2023 End: 08-13-2024 US CAROTID BILATERAL US CAROTID BILATERAL Radiology Routine Pre-op evaluation Expected: 07/15/2023, Expires: 08/13/2024 [facility] Work Phone: Comment on above: Expected: 07/15/2023, Expires: Start: 07-04-2023 ANNUAL PCP TEAM CHRONIC DISEASE VISIT ANNUAL PCP TEAM CHRONIC DISEASE VISIT [facility] Start: 06-20-2023 End: 09-19-2023 CBC panel - Blood by Automated count CBC Lab Routine Rectal mass Expected: 06/20/2023 (Approximate), Expires: 09/19/2023 [facility] Work Phone: Comment on above: Expected: 06/20/2023 (Approximate), Expi res: 09/19/2023 Start: 06-20-2023 End: 09-19-2023 Comprehensive metabolic 2000 panel - Serum or Plasma COMP METABOLIC PANEL Lab Routine Rectal mass Expected: 06/20/2023 (Approximate), Expires: 09/19/2023 [facility] Work Phone: Comment on above: Expected: 06/20/2023 (Approximate), Expi res: 09/19/2023 Start: 06-20-2023 End: 09-19-2023 CONFIRM BLOOD TYPE CONFIRM BLOOD TYPE Blood Bank Routine Rectal mass Expected: 06/20/2023 (Approximate), Expires: 09/19/2023 [facility] Work Phone: Comment on above: Expected: 06/20/2023 (Approximate), Expi res: 09/19/2023 Start: 06-20-2023 End: 09-19-2023 TYPE AND SCREEN,30 DAY TYPE AND SCREEN,30 DAY Blood Bank Routine Rectal mass Expected: 06/20/2023 (Approximate), Expires: 09/19/2023 [facility] Work Phone: Comment on above: Expected: 06/20/2023 (Approximate), Expi res: 09/19/2023 Start: 06-10-2023 End: 08-10-2023 CBC W Auto Differential panel - Blood CBC + DIFF Lab Routine Iron deficiency anemia due to chronic blood loss Expected: 06/10/2023 (Approximate), Expires: 08/10/2023 [facility] Work Phone: Comment on above: Expected: 06/10/2023 (Approximate), Expi res: 08/10/2023 Start: 06-10-2023 End: 08-10-2023 Comprehensive metabolic 2000 panel - Serum or Plasma COMP METABOLIC PANEL Lab Routine Iron deficiency anemia due to chronic blood loss Expected: 06/10/2023 (Approximate), Expires: 08/10/2023 [facility] Work Phone: Comment on above: Expected: 06/10/2023 (Approximate), Expi res: 08/10/2023 Start: 06-10-2023 End: 08-10-2023 Ferritin [Mass/volume] in Serum or Plasma FERRITIN BLD Lab Routine Iron deficiency anemia due to chronic blood loss Expected: 06/10/2023 (Approximate), Expires: 08/10/2023 [facility] Work Phone: Comment on above: Expected: 06/10/2023 (Approximate), Expi res: 08/10/2023 Start: 06-10-2023 End: 08-10-2023 Iron and Iron binding capacity panel - Serum or Plasma IRON + TIBC Lab Routine Iron deficiency anemia due to chronic blood loss Expected: 06/10/2023 (Approximate), Expires: 08/10/2023 [facility] Work Phone: Comment on above: Expected: 06/10/2023 (Approximate), Expi res: 08/10/2023 Start: 06-07-2023 End: 08-07-2023 Comprehensive metabolic 2000 panel - Serum or Plasma COMP METABOLIC PANEL Lab Routine Hyperlipidemia, unspecified hyperlipidemia type Essential hypertension Elevated glucose Expected: 06/07/2023 (Approximate), Expires: 08/07/2023 [facility] Work Phone: Comment on above: Expected: 06/07/2023 (Approximate), Expi res: 08/07/2023 Start: 06-07-2023 End: 08-07-2023 Hemoglobin A1c in Blood HGB A1C Lab Routine Elevated glucose Expected: 06/07/2023 (Approximate), Expires: 08/07/2023 [facility] Work Phone: Comment on above: Expected: 06/07/2023 (Approximate), Expi res: 08/07/2023 Start: 06-07-2023 End: 08-07-2023 Lipid 1996 panel - Serum or Plasma LIPID PANEL BASIC Lab Routine Hyperlipidemia, unspecified hyperlipidemia type Essential hypertension Expected: 06/07/2023 (Approximate), Expires: 08/07/2023 [facility] Work Phone: Comment on above: Expected: 06/07/2023 (Approximate), Expi res: 08/07/2023 Start: 05-21-2023 End: 08-20-2023 Carcinoembryonic Ag [Mass/volume] in Serum or Plasma CEA BLD Lab Routine Iron deficiency anemia due to chronic blood loss Expected: 05/21/2023, Expires: 08/20/2023 [facility] Work Phone: Comment on above: Expected: 05/21/2023, Expires: 4 Start: 05-10-2023 ANNUAL PCP TEAM CHRONIC DISEASE VISIT ANNUAL PCP TEAM CHRONIC DISEASE VISIT [facility] Start: 04-19-2023 BP CONTROLLED (<130/80) BP CONTROLLED (<130/80) [facility] Start: 04-19-2023 End: 06-19-2023 Ferritin [Mass/volume] in Serum or Plasma [facility] Work Phone: Comment on above: Expected: 04/19/2023, Expires: 3 Start: 04-19-2023 End: 06-19-2023 Iron and Iron binding capacity panel - Serum or Plasma [facility] Work Phone: Comment on above: Expected: 04/19/2023, Expires: 3 Start: 04-05-2023 Covid-19 Vaccine () Covid-19 Vaccine () [facility] Start: 04-05-2023 Influenza vaccination [facility] Start: 03-20-2023 ANNUAL PCP TEAM CHRONIC DISEASE VISIT ANNUAL PCP TEAM CHRONIC DISEASE VISIT [facility] Start: 01-24-2023 ANNUAL PCP TEAM CHRONIC DISEASE VISIT ANNUAL PCP TEAM CHRONIC DISEASE VISIT [facility] Start: 01-24-2023 BP CONTROLLED (<130/80) BP CONTROLLED (<130/80) [facility] Start: 11-19-2022 Blood chemistry [facility] Start: 11-18-2022 Blood chemistry [facility] Start: 11-17-2022 Blood chemistry [facility] Start: 11-16-2022 Blood chemistry [facility] Start: 11-15-2022 Patient discharge [facility] Start: 11-15-2022 Referral to service [facility] Start: 11-15-2022 [facility] Start: 11-11-2022 Oxygen therapy [facility] Start: 11-11-2022 Assessment of risk of venous thromboembolism [facility] Start: 11-11-2022 Insertion of catheter into peripheral vein [facility] Start: 11-11-2022 Measuring intake and output [facility] Start: 11-11-2022 Providing care according to standard [facility] Start: 11-11-2022 Provision of activity privileges [facility] Start: 11-11-2022 Referral to occupational therapist [facility] Start: 11-11-2022 Referral to service [facility] Start: 11-11-2022 Speech therapy assessment [facility] Start: 11-11-2022 Verification routine [facility] Start: 11-11-2022 [facility] Start: 11-11-2022 Following clinical pathway protocol [facility] Start: 11-11-2022 Admission procedure [facility] Start: 11-11-2022 Blood culture [facility] Start: 11-11-2022 End: 11-12-2022 [facility] Start: 11-11-2022 Inhalation therapy procedure [facility] Start: 11-07-2022 ANNUAL PCP TEAM CHRONIC DISEASE VISIT ANNUAL PCP TEAM CHRONIC DISEASE VISIT [facility] Start: 10-29-2022 End: 12-29-2022 Bacteria identified in Urine by Culture URINE CULTURE Microbiology Routine Acute cystitis without hematuria Expected: 10/29/2022 (Approximate), Expires: 12/29/2022 [facility] Work Phone: Comment on above: Expected: 10/29/2022 (Approximate), Expi res: 12/29/2022 Start: 10-15-2022 End: 12-15-2022 Comprehensive metabolic 2000 panel - Serum or Plasma COMP METABOLIC PANEL Lab Routine Coronary artery disease involving [place] coronary artery of [place] heart without angina pectoris Mixed hyperlipidemia Expected: 10/15/2022, Expires: 12/15/2022 [facility] Work Phone: Comment on above: Expected: 10/15/2022, Expires: 3 Start: 10-15-2022 End: 12-15-2022 Lipid 1996 panel - Serum or Plasma LIPID PANEL BASIC Lab Routine Mixed hyperlipidemia Expected: 10/15/2022, Expires: 12/15/2022 [facility] Work Phone: Comment on above: Expected: 10/15/2022, Expires: 3 Start: 10-15-2022 End: 12-15-2022 Thyrotropin [Units/volume] in Serum or Plasma TSH BLD Lab Routine Paroxysmal atrial fibrillation (HCC) Expected: 10/15/2022, Expires: 12/15/2022 [facility] Work Phone: Comment on above: Expected: 10/15/2022, Expires: 3 Start: 10-05-2022 End: 12-05-2022 Basic metabolic 2000 panel - Serum or Plasma BASIC METABOLIC PNL Lab Routine Primary hypertension Expected: 10/05/2022, Expires: 12/05/2022 [facility] Work Phone: Comment on above: Expected: 10/05/2022, Expires: 3 Start: 10-04-2022 BP CONTROLLED (<130/80) BP CONTROLLED (<130/80) [facility] Start: 10-02-2022 Hepatitis B surface antibody level LDL CHOLESTEROL [facility] Start: 09-28-2022 COVID-19 VACCINE (5 - Moderna series) COVID-19 VACCINE (5 - Moderna series) [facility] Start: 09-12-2022 ANNUAL PCP TEAM CHRONIC DISEASE VISIT ANNUAL PCP TEAM CHRONIC DISEASE VISIT [facility] Start: 09-11-2022 COLORECTAL CANCER SCREENING COLORECTAL CANCER SCREENING [facility] Start: 09-11-2022 FECAL OCCULT BLOOD FECAL OCCULT BLOOD [facility] Start: 09-11-2022 Screening for malignant neoplasm of colon Fecal Occult Blood [facility] Start: 09-07-2022 End: 11-07-2022 Bacteria identified in Urine by Culture URINE CULTURE Microbiology Routine Acute cystitis without hematuria Expected: 09/07/2022, Expires: 11/07/2022 [facility] Work Phone: Comment on above: Expected: 09/07/2022, Expires: 3 Start: 09-03-2022 End: 11-03-2022 Basic metabolic 2000 panel - Serum or Plasma BASIC METABOLIC PNL Lab Routine Essential hypertension Expected: 09/03/2022, Expires: 11/03/2022 [facility] Work Phone: Comment on above: Expected: 09/03/2022, Expires: 3 Start: 08-17-2022 Patient discharge [facility] Start: 08-17-2022 [facility] Start: 08-17-2022 Inhalation therapy procedure [facility] Start: 08-17-2022 Physiotherapy of chest [facility] Start: 08-16-2022 End: 08-16-2022 [facility] Start: 08-16-2022 Oxygen therapy [facility] Start: 08-16-2022 Admission procedure [facility] Start: 08-16-2022 Assessment of risk of venous thromboembolism [facility] Start: 08-16-2022 Incentive spirometry [facility] Start: 08-16-2022 Insertion of catheter into peripheral vein [facility] Start: 08-16-2022 Measuring intake and output [facility] Start: 08-16-2022 Providing care according to standard [facility] Start: 08-16-2022 Provision of activity privileges [facility] Start: 08-16-2022 Referral to occupational therapist [facility] Start: 08-16-2022 Referral to service [facility] Start: 08-16-2022 Following clinical pathway protocol [facility] Start: 08-16-2022 End: 08-16-2022 [facility] Start: 08-05-2022 ADVANCE DIRECTIVE DISCUSSION ADVANCE DIRECTIVE DISCUSSION [facility] Start: 08-05-2022 DEPRESSION ASSESSMENT DEPRESSION ASSESSMENT [facility] Start: 06-15-2022 End: 08-15-2022 CBC W Auto Differential panel - Blood CBC + DIFF Lab Routine Essential hypertension Expected: 06/15/2022, Expires: 08/15/2022 [facility] Work Phone: Comment on above: Expected: 06/15/2022, Expires: 3 Start: 06-05-2022 End: 08-05-2022 Comprehensive metabolic 2000 panel - Serum or Plasma COMP METABOLIC PANEL Lab Routine Hyperlipidemia, unspecified hyperlipidemia type Essential hypertension Expected: 06/05/2022, Expires: 08/05/2022 [facility] Work Phone: Comment on above: Expected: 06/05/2022, Expires: 3 Start: 06-05-2022 End: 08-05-2022 Lipid 1996 panel - Serum or Plasma LIPID PANEL BASIC Lab Routine Hyperlipidemia, unspecified hyperlipidemia type Essential hypertension Expected: 06/05/2022, Expires: 08/05/2022 [facility] Work Phone: Comment on above: Expected: 06/05/2022, Expires: 3 Start: 06-05-2022 End: 08-05-2022 Natriuretic peptide.B prohormone N-Terminal [Mass/volume] in Serum or Plasma NT PRO BNP Lab Routine Essential hypertension Shortness of breath Expected: 06/05/2022, Expires: 08/05/2022 [facility] Work Phone: Comment on above: Expected: 06/05/2022, Expires: 3 Start: 04-05-2022 Influenza vaccination INFLUENZA (#1) [facility] Start: 02-03-2022 Adult depression screening assessment DEPRESSION SCREENING [facility] Start: 02-02-2022 End: 04-04-2022 Comprehensive metabolic 2000 panel - Serum or Plasma COMP METABOLIC PANEL Lab Routine Coronary artery disease involving [place] coronary artery of [place] heart without angina pectoris Essential hypertension Expected: 02/02/2022 (Approximate), Expires: 04/04/2022 [facility] Work Phone: Comment on above: Expected: 02/02/2022 (Approximate), Expi res: 04/04/2022 Start: 02-02-2022 End: 04-04-2022 Natriuretic peptide.B prohormone N-Terminal [Mass/volume] in Serum or Plasma NT PRO BNP Lab Routine Coronary artery disease involving [place] coronary artery of [place] heart without angina pectoris Essential hypertension Shortness of breath Expected: 02/02/2022 (Approximate), Expires: 04/04/2022 [facility] Work Phone: Comment on above: Expected: 02/02/2022 (Approximate), Expi res: 04/04/2022 Start: 11-15-2021 COVID-19 VACCINE (4 - Booster for Moderna series) COVID-19 VACCINE (4 - Booster for Moderna series) [facility] Start: 11-03-2021 HEPATITIS C SCREENING HEPATITIS C SCREENING [facility] Comment on above: Postponed from 1973 (Declined at t his time) Start: 09-11-2021 COVID-19 VACCINE (4 - Booster for Moderna series) COVID-19 VACCINE (4 - Booster for Moderna series) [facility] Start: 08-05-2021 ADVANCE DIRECTIVE DISCUSSION ADVANCE DIRECTIVE DISCUSSION [facility] Start: 08-05-2021 DEPRESSION ASSESSMENT DEPRESSION ASSESSMENT [facility] Start: 2020 PNEUMOVAX AGE 65 AND OVER WITH 5YR LOOKBACK (#1) PNEUMOVAX AGE 65 AND OVER WITH 5YR LOOKBACK (#1) [facility] Start: 06-03-2015 PROSTATE CANCER SCREENING DISCUSSION PROSTATE CANCER SCREENING DISCUSSION [facility] Start: 06-03-2015 Prostate specific antigen measurement Prostate Cancer Screening Discussion [facility] Start: 2005 Influenza vaccination LUNG CANCER SCREENING [facility] Start: 2005 Screening for malignant neoplasm of lung Lung Cancer Screening [facility] Start: 2005 SHINGRIX VACCINE (1 of 2) SHINGRIX VACCINE (1 of 2) [facility] Start: 2000 COLOGUARD (FIT-DNA) COLOGUARD (FIT-DNA) [facility] Start: 2000 Colonoscopy COLONOSCOPY [facility] Start: [address] COLONOGRAPHY [facility] Start: 2000 Screening for malignant neoplasm of colon [facility] Start: 2000 SIGMOIDOSCOPY SIGMOIDOSCOPY [facility] Start: 1985 Zoledronic acid therapy ALPHA-1 ANTITRYPSIN DEFICIENCY SCREENING [facility] Start: 1974 Urine microalbumin profile [facility] Start: 1973 BP CONTROLLED (<130/80) BP CONTROLLED (<130/80) [facility] Start: 1973 HEPATITIS C SCREENING HEPATITIS C SCREENING [facility] Start: 1973 Hepatitis C screening Hepatitis C Screening [facility] Start: 1973 SPIROMETRY SPIROMETRY [facility] Start: 1961 Pneumococcal Vaccine: 65+ (1 - PCV) Pneumococcal Vaccine: 65+ (1 - PCV) [facility] Start: 1961 PNEUMOCOCCAL: 65+ (1 - PCV) PNEUMOCOCCAL: 65+ (1 - PCV) [facility] Start: 1955 ABDOMINAL AORTIC ANEURYSM SCREENING ABDOMINAL AORTIC ANEURYSM SCREENING [facility] Start: 1955 Abdominal aortic aneurysm screening Abdominal Aortic Aneurysm Screening [facility] Anion gap measurement [facility] Anion gap measurement [facility] Anion gap measurement [facility] Anion gap measurement [facility] Bacteria identified in Blood by Culture Blood Culture [facility] Bacteria identified in Blood by Culture Blood Culture [facility] BUN/Creatinine ratio [facility] BUN/Creatinine ratio [facility] BUN/Creatinine ratio [facility] BUN/Creatinine ratio [facility] Calcium [Mass/volume ] in Serum or Plasma [facility] Calcium [Mass/volume ] in Serum or Plasma [facility] Calcium [Mass/volume ] in Serum or Plasma [facility] Calcium [Mass/volume ] in Serum or Plasma [facility] Carbon dioxide, tota l [Moles/volume] in Serum or Plasma [facility] Carbon dioxide, tota l [Moles/volume] in Serum or Plasma [facility] Carbon dioxide, tota l [Moles/volume] in Serum or Plasma [facility] Carbon dioxide, tota l [Moles/volume] in Serum or Plasma [facility] Carcinoembryonic Ag [Mass/volume] in Serum or Plasma CEA BLD Lab Routine Iron deficiency anemia due to chronic blood loss 05/22/2023 2:15 PM EDT [facility] Work Phone: Chloride [Moles/volu me] in Serum or Plasma [facility] Chloride [Moles/volu me] in Serum or Plasma [facility] Chloride [Moles/volu me] in Serum or Plasma [facility] Chloride [Moles/volu me] in Serum or Plasma [facility] End: 04-07-2024 COLONOSCOPY DIAGNOSTIC COLONOSCOPY DIAGNOSTIC Endoscopy Routine Iron deficiency anemia due to chronic blood loss 1 Occurrences starting 04/07/2023 until 04/07/2024 [facility] Work Phone: Comment on above: 1 Occurrences starting 04/07/2023 until 04/07/2024 Creatinine [Moles/vo lume] in Serum or Plasma [facility] Creatinine [Moles/vo lume] in Serum or Plasma [facility] Creatinine [Moles/vo lume] in Serum or Plasma [facility] Creatinine [Moles/vo lume] in Serum or Plasma [facility] End: 06-19-2024 Ct abdomen & pelvis w/contrast material CT ABD/PEL W IVCON Radiology Routine Iron deficiency anemia due to chronic blood loss 1 Occurrences starting 05/21/2023 until 06/19/2024 [facility] Work Phone: Comment on above: 1 Occurrences starting 05/21/2023 until 06/19/2024 CT Chest [facility] Work Phone: End: 07-01-2025 CT Neck W contrast IV CTA NECK W IVCON Radiology Routine Cerebral aneurysm without rupture 1 Occurrences starting 06/01/2024 until 07/01/2025 [facility] Comment on above: 1 Occurrences starting 06/01/2024 until 07/01/2025 End: 07-01-2025 CTA Head Arteries W contrast IV CTA HEAD W IVCON Radiology Routine Cerebral aneurysm without rupture 1 Occurrences starting 06/01/2024 until 07/01/2025 [facility] Work Phone: Comment on above: 1 Occurrences starting 06/01/2024 until 07/01/2025 End: 06-20-2024 ECG COMPLETE ECG COMPLETE ECG Routine Rectal mass 1 Occurrences starting 06/20/2023 until 06/20/2024 [facility] Work Phone: Comment on above: 1 Occurrences starting 06/20/2023 until 06/20/2024 End: 04-07-2024 EGD DIAGNOSTIC EGD DIAGNOSTIC Endoscopy Routine Iron deficiency anemia due to chronic blood loss 1 Occurrences starting 04/07/2023 until 04/07/2024 [facility] Work Phone: Comment on above: 1 Occurrences starting 04/07/2023 until 04/07/2024 End: 09-03-2025 EPIL EEG LONG EPIL EEG LONG NEUROLOGY Routine Seizure (HCC) 1 Occurrences starting 09/03/2024 until 09/03/2025 [facility] Work Phone: Comment on above: 1 Occurrences starting 09/03/2024 until 09/03/2025 End: 03-09-2025 EPIL EEG ROUTINE EPIL EEG ROUTINE NEUROLOGY Routine History of stroke Altered mental status, unspecified altered mental status type 1 Occurrences starting 03/09/2024 until 03/09/2025 [facility] Comment on above: 1 Occurrences starting 03/09/2024 until 03/09/2025 EPIL VEEG ADMIT TO EMU/PMU EPIL VEEG ADMIT TO EMU/PMU NEUROLOGY Routine Altered awareness, transient Abnormal EEG Ordered: 07/23/2024 [facility] Work Phone: Comment on above: Ordered: 07/23/2024 Glucose [Mass/volume ] in Serum or Plasma [facility] Glucose [Mass/volume ] in Serum or Plasma [facility] Glucose [Mass/volume ] in Serum or Plasma [facility] Glucose [Mass/volume ] in Serum or Plasma [facility] Hematocrit [Volume Fraction] of Blood [facility] Hematocrit [Volume Fraction] of Blood [facility] Hematocrit [Volume Fraction] of Blood [facility] Hematocrit [Volume Fraction] of Blood [facility] Hemoglobin [Mass/vol ume] in Blood [facility] Hemoglobin [Mass/vol ume] in Blood [facility] Hemoglobin [Mass/vol ume] in Blood [facility] Hemoglobin [Mass/vol ume] in Blood [facility] Leukocytes [#/volume ] in Blood [facility] Leukocytes [#/volume ] in Blood [facility] Leukocytes [#/volume ] in Blood [facility] Leukocytes [#/volume ] in Blood [facility] End: 11-05-2025 LUNG DIFFUSION CAPACITY (DLCO) LUNG DIFFUSION CAPACITY (DLCO) PFT Routine COPD, moderate (HCC) 1 Occurrences starting 10/06/2024 until 11/05/2025 [facility] Comment on above: 1 Occurrences starting 10/06/2024 until 11/05/2025 Mean corpuscular hemoglobin concentration determination [facility] Mean corpuscular hemoglobin concentration determination [facility] Mean corpuscular hemoglobin concentration determination [facility] Mean corpuscular hemoglobin concentration determination [facility] Mean corpuscular hemoglobin determination [facility] Mean corpuscular hemoglobin determination [facility] Mean corpuscular hemoglobin determination [facility] Mean corpuscular hemoglobin determination [facility] Measurement of renal function [facility] Measurement of renal function [facility] Measurement of renal function [facility] Measurement of renal function [facility] End: 04-08-2025 MR Brain WO contrast MRI BRAIN WO IVCON Radiology Routine History of stroke Left carotid artery occlusion Stenosis of left subclavian artery (HCC) History of obstructive sleep apnea History of atrial fibrillation History of coronary artery bypass, five 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 Spasticity Other symptoms and signs involving the nervous system 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) Occlusion and stenosis of unspecified carotid artery 1 Occurrences starting 03/09/2024 until 04/08/2025 [facility] Work Phone: Comment on above: 1 Occurrences starting 03/09/2024 until 04/08/2025 End: 04-08-2025 MRA Head vessels WO contrast MRA BRAIN WO IVCON Radiology Routine History of stroke Left carotid artery occlusion Stenosis of left subclavian artery (HCC) History of obstructive sleep apnea History of atrial fibrillation History of coronary artery bypass, five 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 Spasticity Other symptoms and signs involving the nervous system 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) Occlusion and stenosis of unspecified carotid artery 1 Occurrences starting 03/09/2024 until 04/08/2025 [facility] Comment on above: 1 Occurrences starting 03/09/2024 until 04/08/2025 End: 04-08-2025 MRA Neck vessels WO contrast MRA CAROTID WO IVCON Radiology Routine History of stroke Left carotid artery occlusion Stenosis of left subclavian artery (HCC) History of obstructive sleep apnea History of atrial fibrillation History of coronary artery bypass, five 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 Neutrophil count [facility] Neutrophil count [facility] Neutrophil count [facility] Neutrophil percent differential count [facility] Neutrophil percent differential count [facility] Neutrophil percent differential count [facility] Neutrophil percent differential count [facility] OXIMETRY - NOCTURNAL OXIMETRY - NOCTURNAL Procedures Routine Centrilobular emphysema (HCC) Ordered: 03/12/2023 [facility] Work Phone: Comment on above: Ordered: 03/12/2023 OXIMETRY - NOCTURNAL OXIMETRY - NOCTURNAL Procedures Routine Centrilobular emphysema (HCC) Ordered: 09/16/2023 [facility] Work Phone: Comment on above: Ordered: 09/16/2023 OXIMETRY - NOCTURNAL OXIMETRY - NOCTURNAL Procedures Routine Dependence on nocturnal oxygen therapy Ordered: 10/06/2024 [facility] Comment on above: Ordered: 10/06/2024 Patient Education [facility] Work Phone: Patient referral [facility] Work Phone: Platelets [#/volume] in Blood [facility] Platelets [#/volume] in Blood [facility] Platelets [#/volume] in Blood [facility] Platelets [#/volume] in Blood [facility] End: 12-15-2024 Polysomnogram POLYSOMNOGRAM (PSG) Procedures Routine DARON (obstructive sleep apnea) Intolerance of continuous positive airway pressure (CPAP) ventilation 1 Occurrences starting 12/16/2023 until 12/15/2024 [facility] Work Phone: Comment on above: 1 Occurrences starting 12/16/2023 until 12/15/2024 Potassium [Moles/vol ume] in Serum or Plasma [facility] Potassium [Moles/vol ume] in Serum or Plasma [facility] Potassium [Moles/vol ume] in Serum or Plasma [facility] Potassium [Moles/vol ume] in Serum or Plasma [facility] End: 01-03-2024 Radiologic exam chest 2 views XR CHEST 2V FRONTAL/LAT Radiology Routine Acute cough 1 Occurrences starting 12/04/2022 until 01/03/2024 [facility] Work Phone: Comment on above: 1 Occurrences starting 12/04/2022 until 01/03/2024 Radiologic exam ches t 2 views XR CHEST 2V FRONTAL/LAT Radiology Routine Acute cough 12/04/2022 5:00 PM EDT [facility] Work Phone: End: 01-05-2024 Radiologic exam swallow function contrast study XR MODIFIED BARIUM SWALLOW W SPEECH THERAPY Radiology Routine Aphasia as late effect of cerebrovascular accident Cerebrovascular accident (CVA), unspecified mechanism (HCC) 1 Occurrences starting 12/06/2022 until 01/05/2024 [facility] Work Phone: Comment on above: 1 Occurrences starting 12/06/2022 until 01/05/2024 Red blood cell count [facility] Red blood cell count [facility] Red blood cell count [facility] Red blood cell count [facility] Red cell distributio n width determination [facility] Red cell distributio n width determination [facility] Red cell distributio n width determination [facility] Red cell distributio n width determination [facility] REFER FOR ADMIT INTERVIEW REFER FOR ADMIT INTERVIEW Procedures Routine Rectal mass Ordered: 06/20/2023 [facility] Work Phone: Comment on above: Ordered: 06/20/2023 Removal impacted cer umen irrigation/lvg unilat AMBULATORY EAR LAVAGE/IRRIGATION Procedures Routine Bilateral impacted cerumen Ordered: 03/02/2025 [facility] Work Phone: Comment on above: Ordered: 03/02/2025 End: 02-23-2025 Screening colonoscopy COLONOSCOPY SCREENING Endoscopy Routine History of colonic polyps 1 Occurrences starting 02/24/2024 until 02/23/2025 [facility] Work Phone: Comment on above: 1 Occurrences starting 02/24/2024 until 02/23/2025 Sodium [Moles/volume ] in Serum or Plasma [facility] Sodium [Moles/volume ] in Serum or Plasma [facility] Sodium [Moles/volume ] in Serum or Plasma [facility] Sodium [Moles/volume ] in Serum or Plasma [facility] End: 11-05-2025 SPIROMETRY WITH DILATOR IF OBSTRUCTED SPIROMETRY WITH DILATOR IF OBSTRUCTED PFT Routine COPD, moderate (HCC) 1 Occurrences starting 10/06/2024 until 11/05/2025 [facility] Work Phone: Comment on above: 1 Occurrences starting 10/06/2024 until 11/05/2025 SURGICAL PATHOLOGY [facility] Work Phone: Comment on above: Release Upon Ordering for 1 Occurrences starting 04/10/2023, 1 completed Urea nitrogen [Mass/volume] in Serum or Plasma [facility] Urea nitrogen [Mass/volume] in Serum or Plasma [facility] Urea nitrogen [Mass/volume] in Serum or Plasma [facility] Urea nitrogen [Mass/volume] in Serum or Plasma [facility] Urine culture Urine Culture [facility] Work Phone: End: 10-01-2024 US Carotid arteries - bilateral US CAROTID ARTERIES [facility] Vascular Lab Routine Occlusion of left carotid artery 1 Occurrences starting 10/01/2023 until 10/01/2024 [facility] Work Phone: Comment on above: 1 Occurrences starting 10/01/2023 until 10/01/2024 End: 09-23-2025 US Carotid arteries - bilateral US CAROTID ARTERIES [facility] Vascular Lab Routine Occlusion of left carotid artery Subclavian artery stenosis, left (HCC) 1 Occurrences starting 09/24/2024 until 09/23/2025 [facility] Comment on above: 1 Occurrences starting 09/24/2024 until 09/23/2025 End: 11-10-2025 US Carotid arteries - bilateral US CAROTID ARTERIES [facility] Vascular Lab Routine Occlusion of left carotid artery Subclavian artery stenosis, left 1 Occurrences starting 11/10/2024 until 11/10/2025 [facility] Work Phone: Comment on above: 1 Occurrences starting 11/10/2024 until 11/10/2025 End: 06-18-2024 US CAROTID ARTERIES [facility] US CAROTID ARTERIES [facility] Vascular Lab Routine Occlusion of left carotid artery 1 Occurrences starting 06/18/2023 until 06/18/2024 [facility] Work Phone: Comment on above: 1 Occurrences starting 06/18/2023 until 06/18/2024 End: 09-23-2025 US Upper extremity artery US ARM ARTERIAL [facility] Vascular Lab Routine Occlusion of left carotid artery Subclavian artery stenosis, left (HCC) 1 Occurrences starting 09/24/2024 until 09/23/2025 [facility] Work Phone: Comment on above: 1 Occurrences starting 09/24/2024 until 09/23/2025 End: 08-12-2025 XR Knee - left 4 Views XR KNEE GENERAL 4V AP BOTH/PA BOTH/LAT/MERC LEFT Radiology Routine Acute pain of left knee 1 Occurrences starting 07/13/2024 until 08/12/2025 [facility] Comment on above: 1 Occurrences starting 07/13/2024 until 08/12/2025 [facility] Immunizations Immunization Date Immunization Notes Care Provider tone 05-26-2024 COVID-19 original vaccine, full dose, monovalent (MODERNA) Jaci Arroyo MD Work Phone: [facility] 05-26-2024 influenza (HD-IIV4) vaccine, age 65+ yr, high dose, quadrivalent, PF (FLUZONE HIGH-DOSE) Jaci Arroyo MD Work Phone: [facility] 05-26-2024 influenza virus vaccine, unspecified formulation RICRADO MARIE APRN-OPERATIONS LABEL CLERK [facility] 05-26-2024 SARS-CoV-2 (COVID-19 ) [id number] RICARDO MARIE BUILDING EQUIPMENT INSPECTOR-OPERATIONS LABEL CLERK [facility] 06-11-2023 COVID-19 vaccine, ag e 12+ yr, 2022- season ([employer] Jaci Arroyo MD Work Phone: [facility] 06-11-2023 SARS-CoV-2 (COVID-19 ) [id number] RICARDO MARIE APRN-OPERATIONS LABEL CLERK [facility] Comment on above: Result Comment: 2024: [id number] 04-23-2023 influenza (aIIV4) vaccine, age 65+ yr, quadrivalent, PF (FLUAD QUAD) Jaci Arroyo MD Work Phone: [facility] 04-23-2023 respiratory syncytia l virus (RSV) vaccine, bivalent (ABRYSVO) Jaci Arroyo MD Work Phone: [facility] 04-23-2023 influenza virus vaccine, unspecified formulation Jaci Arroyo MD Work Phone: [facility] 06-05-2022 influenza (aIIV4) vaccine, age 65+ yr, quadrivalent, PF (FLUAD QUAD) Jaci Arroyo MD Work Phone: [facility] 06-05-2022 influenza virus vaccine, unspecified formulation Mariano Beckman APRN.OPERATIONS LABEL CLERK Work Phone: [facility] 05-28-2022 pneumococcal conjuga te (PCV20) vaccine, 20 valent (PREVNAR 20) Jaci Arroyo MD Work Phone: [facility] 07-17-2021 SARS-CoV-2 (COVID-19 ) mRNA-1273 vaccine RICARDO MARIE BUILDING EQUIPMENT INSPECTOR-OPERATIONS LABEL CLERK [facility] 05-11-2021 influenza, injectabl e, quadrivalent, preservative free Dr. Jaci Arroyo Work Phone: [facility] 05-11-2021 influenza, seasonal, injectable Dr. Jaci Arroyo Work Phone: [facility] 05-10-2021 tetanus toxoid, reduced diphtheria toxoid, and acellular pertussis vaccine, adsorbed Jaci Arroyo MD Work Phone: [facility] 05-03-2021 influenza virus vaccine, unspecified formulation RICARDO MARIE BUILDING EQUIPMENT INSPECTOR-OPERATIONS LABEL CLERK [facility] 05-03-2021 influenza, high-dose , quadrivalent vaccine (FLUZONE HIGH DOSE QUADRIVALENT) Jaci Arroyo MD Work Phone: [facility] 11-17-2020 COVID-19 vaccine, fu ll dose (MODERNA) Jaci Arroyo MD Work Phone: [facility] Comment on above: Result Comment: 2024: [id number] 10-20-2020 COVID-19 vaccine, fu ll dose (MODERNA) Jaci Arroyo MD Work Phone: [facility] Comment on above: Result Comment: 2024: [id number] 05-06-2020 influenza virus vaccine, unspecified formulation RICARDO FRANK BUILDING EQUIPMENT INSPECTOR-OPERATIONS LABEL CLERK [facility] 05-06-2020 influenza, injectabl e, quadrivalent, contains preservative Jaci Arroyo MD Work Phone: [facility] 04-21-2019 influenza virus vaccine, unspecified formulation RICARDO MARIE BUILDING EQUIPMENT INSPECTOR-OPERATIONS LABEL CLERK [facility] 04-21-2019 influenza, injectabl e, quadrivalent, contains preservative Jaci Arroyo MD Work Phone: [facility] 06-19-2018 Flucelvax Quad [id number] (PF) (flu vac qs 2018(4 yr up)CD(PF)) 60 mcg ([address] Jaci Arroyo Work Phone: [facility] Work Phone: 06-08-2018 influenza virus vaccine, unspecified formulation RICARDO MARIE BUILDING EQUIPMENT INSPECTOR-OPERATIONS LABEL CLERK [facility] 06-08-2018 influenza, seasonal, injectable Jaci Arroyo MD Work Phone: [facility] 05-05-2017 influenza virus vaccine, unspecified formulation RICARDO MARIE APRN-OPERATIONS LABEL CLERK [facility] 05-05-2017 influenza, seasonal, injectable Jaci Arroyo MD Work Phone: [facility] Payers Date Payer Category Payer Medicare [id number] 2024 Unknown [id number] 2024 Private Health Insurance [facility] [id number] 2024 Medicare (Managed Care) 1.2. [id number] 2023 Unknown [id number] 2023 Self-pay [id number] 2022 Medicare [id number] .[id number] 2022 Medicaid [id number] 2021 Medicare [id number] .[id number] 2019 Medicaid [id number]. [id number] .[id number] 2019 Medicare [id number] [id number] .[id number] 2019 Unknown [id number] 2016 Medicaid [id number] 1955 Unknown [id number] 2.16.840.1.241680.3.579.2.2 78 1955 Unknown [id number] 2.16.840.1.319476.3.579.2.2 78 1955 Unknown [id number] 2.16.840.1.461474.3.579.2.2 78 1955 Unknown [id number] 2.16.840.1.278805.3.579.2.2 78 1955 Unknown [id number] 2.16.840.1.916202.3.579.2.2 78 1955 Unknown [id number] 2.16.840.1.841466.3.579.2.2 78 1955 Unknown [id number] 2.16.840.1.042015.3.579.2.6 27 1955 Unknown [id number] 2.16.840.1.396464.3.579.2.6 27 1955 Unknown [id number] 2.16.840.1.598818.3.579.2.6 27 1955 Unknown [id number] 2.16.840.1.532930.3.579.2.6 27 1955 Unknown [id number] 2.16.840.1.491819.3.579.2.6 27 1955 Unknown [id number] 2.16.840.1.789399.3.579.2.6 27 Unknown VA AUTH REQUIR ED SEE NOTE [id number] Unknown [id number] 2.16.840.1.441535.3.579.2.4 62 Unknown [id number] 2.16.840.1.862604.3.579.2.4 62 Unknown [id number] 2.16.840.1.369796.3.579.2.4 62 Unknown [id number] 2.16.840.1.041864.3.579.2.4 62 Unknown [id number] 2.16.840.1.317018.3.579.2.4 62 Unknown [id number] 2.16.840.1.149684.3.579.2.4 62 Unknown [id number] 2.16.840.1.809625.3.579.2.4 62 Unknown [id number] 2.16.840.1.650422.3.579.2.4 62 Unknown [id number] 2.16.840.1.854827.3.579.2.4 62 Unknown [id number] 2.16.840.1.393808.3.579.2.4 62 Unknown [id number] 2.16.840.1.076079.3.579.2.4 62 Unknown [id number] 2.16.840.1.340845.3.579.2.4 62 Unknown [id number] 2.16.840.1.781692.3.579.2.4 62 Unknown [id number] 2.16.840.1.093049.3.579.2.4 62 Unknown [id number] 2.16.840.1.944684.3.579.2.4 62 Unknown [id number] 2.16.840.1.210939.3.579.2.4 62 Unknown [id number] 2.16.840.1.127407.3.579.2.4 62 Unknown [id number] 2.16.840.1.368912.3.579.2.4 62 Unknown [id number] 2.16.840.1.875489.3.579.2.4 62 Unknown [id number] 2.16.840.1.223564.3.579.2.4 62 Unknown [id number] 2.16.840.1.917174.3.579.2.4 62 Social History Date Type Detail Facility Start: 02-03-2015 End: 03-23-2024 Tobacco smoking status NHIS Ex-smoker [facility] Work Phone: Start: 07-08-1971 End: 07-08-2016 History of tobacco use Current smoker [facility] Work Phone: Start: 07-08-1971 End: 07-08-2016 History of tobacco use Cigarette Smoker [facility] Work Phone: Start: 02-03-2015 End: 03-23-2024 Tobacco use and exposure Smokeless tobacco non-user [facility] Work Phone: Start: 10-05-2021 End: 03-02-2025 Alcohol intake Current non-drinker of alcohol (finding) [facility] Start: 09-27-2016 End: 04-19-2022 Tobacco Comment 07/08/2016 [facility] Start: 1955 Sex Assigned At Not on file [facility] Start: 09-04-2021 End: 07-04-2022 Exposure to SARS-CoV-2 (event) Not sure [facility] Start: 10-06-2021 End: 09-26-2023 Tobacco smoking status MOIS Unknown if ever smoked [facility] Start: 03-11-2019 None [facility] Start: 03-11-2019 Spouse/ Significant Other [facility] Start: 08-23-2021 Non-smoker [facility] Start: 1955 Sex Assigned At Male [facility] Start: 05-10-2022 History SDOH Alcohol Frequency 1 [facility] Start: 05-10-2022 History SDOH Alcohol Std Drinks 0 [facility] Start: 05-10-2022 History SDOH Social Connections Phone 2 [facility] Start: 05-10-2022 History SDOH Social Connections Living 3 [facility] Start: 05-10-2022 History SDOH Physical Activity DPW 4 [facility] Start: 05-10-2022 History SDOH Financial 5 [facility] Start: 05-10-2022 End: 12-20-2022 History of Social function [facility] Start: 05-10-2022 End: 12-20-2022 Social connection and isolation panel [facility] Do you belong to any clubs or organizations such as uatsdin groups, unions, fraternal or athletic groups, or school groups? Yes [facility] Are you now , , , , never or living with a partner? [facility] How often to you hav e a drink containing alcohol? Never [facility] How many standard dr inks containing alcohol do you have on a typical day? Patient does not drink [facility] Do you feel stress - tense, restless, nervous, or anxious, or unable to sleep at night because your mind is troubled all the time - these days [OSQ] Rather much [facility] (I/We) worried wheth er (my/our) food would run out before (I/we) got money to buy more. Never true [facility] In the past 12 month s, was there a time when you were not able to pay the mortgage or rent on time? No [facility] Sexual Orientation [place] [facility] Start: 11-18-2022 Sex Male (finding) [facility] Medical Equipment Procedure Code Equipment Code Equipment Origin al Text Equipment Identifier Dates ORIF, ankle 4.0 CANNULATED SCREW FDA Sta rt: 08-07-2023 ORIF, ankle 4.0 CANNULATED SCREW FDA Sta rt: 08-07-2023 ORIF, ankle CANCELLOUS SCREW FDA Start: 08-07-2023 ORIF, ankle CANCELLOUS SCREW FDA Start: 08-07-2023 ORIF, ankle CANCELLOUS SCREW FDA Start: 08-07-2023 ORIF, ankle Orthopaedic bone pin, non-bioabsorbable ([id number] FDA Start: 08-07-2023 Omnilink Elite Subclavian Stent FDA Start: 11-01-2016 Omnilink Elite Subclavian Stent FDA Start: 11-01-2016 Omnilink Elite Subclavian Stent FDA Start: 11-01-2016 Omnilink Elite Subclavian Stent FDA Start: 11-01-2016 Omnilink Elite Subclavian Stent FDA Start: 11-01-2016 Omnilink Elite Subclavian Stent FDA Start: 11-01-2016 Omnilink Elite Subclavian Stent FDA Start: 11-01-2016 Omnilink Elite Subclavian Stent FDA Start: 11-01-2016 Omnilink Elite Subclavian Stent FDA Start: 11-01-2016 Omnilink Elite Subclavian Stent FDA Start: 11-01-2016 Omnilink Elite Subclavian Stent FDA Start: 11-01-2016 Goals Date Patient Goal Desired Activity /State Personal health goal Functional Status Date Assessment Result Facility 09-18-2024 Functional Status Nurse Safety Abigail olsen q2hrs Performed Other: 7am-1245pm [facility] 09-18-2024 Functional Status Sequential Com pression Device bilateral knee high removed/off [facility] 09-18-2024 Functional Status Identified as high risk, Fall ID band on, Bed alert on, Non-Slip footwear, Room check performed [facility] 09-18-2024 Functional Status Sonny Duran [facility] 09-18-2024 Functional Status Sonny Duran [facility] 09-17-2024 Functional Status Sonny Duran [facility] 09-17-2024 Functional Status Min A Sonny [facility] 09-17-2024 Functional Status Sonny [facility] 09-17-2024 Functional Status Sonny [facility] 09-16-2024 Functional Status Max A [facility] 09-16-2024 Functional Status Single level home [facility] 09-16-2024 Functional Status Positioning Re positions self [facility] 09-15-2024 Functional Status Sensory Defici ts Blind, left eye [facility] 09-15-2024 Functional Status [facility] 08-09-2023 Functional status Bedrest [facility] Work Phone: 07-26-2023 Functional Status Assistive Device Cane A [facility] 07-26-2023 Functional Status Standard Safet y ID band on, Call device within reach, Bed in low position, Wheels locked, Upper/Half-Length side-rails up, Phone within reach [facility] 03-21-2023 Functional Status Up ad marilu [facility] 03-21-2023 Functional Status Standard Safet y ID band on, Call device within reach, Wheels locked, Visitor at bedside [facility] 11-19-2022 Functional Status Single level home [facility] 11-19-2022 Functional Status [facility] 11-18-2022 Functional Status heel(s)s elevated [facility] 11-15-2022 Functional status Ambulates;Chair [facility] Work Phone: 08-17-2022 Functional status Chair [facility] Work Phone: 08-23-2021 Functional status Ambulates [facility] Work Phone: 08-22-2021 Functional status Ember Walker [facility] Work Phone: 02-03-2015 Are you deaf, or do you have serious difficulty hearing No 02/03/2015 3:59 PM EDT Dimple Agustin LPN No [facility] 02-03-2015 Are you blind, or do you have serious difficulty seeing, even when wearing glasses No 02/03/2015 3:59 PM EDT Dimple Agustin LPN No [facility] 02-03-2015 Do you have serious difficulty walking or climbing stairs No 02/03/2015 3:59 PM EDT Dimple Agustin LPN No [facility] 02-03-2015 Do you have difficul ty dressing or bathing No 02/03/2015 3:59 PM EDT Dimple Agustin LPN No [facility] 02-03-2015 Because of a physica l, mental, or emotional condition, do you have difficulty doing errands alone such as visiting a physician's office or shopping No 02/03/2015 3:59 PM EDT Dimple Agustin LPN No [facility] Mental Status Date Assessment Result Facility 09-18-2024 Mental Status Orientation Asse ssment Identifies self [facility] 09-17-2024 [facility] 09-17-2024 Mental Status [facility] 09-15-2024 Mental Status Orientation Oriented x 4 [facility] 08-09-2023 Cognitive function Voice/Name [facility] Work Phone: 07-26-2023 Mental Status Orientation Foll ows simple commands [facility] 07-26-2023 Mental Status [facility] 03-21-2023 Mental Status Orientation Oriented x 4 [facility] 03-21-2023 Mental Status [facility] 11-19-2022 Mental Status Not oriented to place, Not oriented to time, Follows simple commands [facility] 11-19-2022 Mental Status [facility] 11-18-2022 Mental Status [facility] 11-18-2022 Mental Status [facility] 11-15-2022 Cognitive function Voice/Name [facility] Work Phone: 11-11-2022 Cognitive function Level Of Cons ciousness Awake;Alert;Appropriate;Fol lows Commands [facility] Work Phone: 08-17-2022 Cognitive function Demonstrates ability to follow instructions/comprehend [facility] Work Phone: 08-23-2021 Cognitive function Voice/Name [facility] Work Phone: 02-03-2015 Because of a physica l, mental, or emotional condition, do you have serious difficulty concentrating, remembering, or making decisions 02/03/2015 3:59 PM EDT Dimple Agustin LPN No [facility] Clinical Notes 06-06-2010 to 03-08-2025 Telephone Encounter - Monica Cruz MA - 03/08/2025 3:32 PM EDTTelephone Encounter - Monica Cruz MA - 03/08/2025 3:32 PM EDTNENITA SENA - 03/02/2025 1:19 PM EDTPatient Instructions Note Date & Type Note Facility 03-08-2025 Telephone encounter Note Spoke with pt , Eli. 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 Monica Cruz MA [facility] 03-08-2025 Miscellaneous Notes Spoke with pt , Eli. 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 Monica Cruz MA Letter printed Jaci Arroyo MD Spouse (Eli) calls to request a copy of the letter from Jessie Harmon that states patient is unable to make decisions for himself. Letter on file is not signed and spouse says it needs to be. Did not see anything in scanned documents. Eli asking if office has a copy of signed letter or could Dr. Arroyo print another one and sign it. Eli needs the letter by tomorrow morning for care plan meeting as patient is at [facility]. Please review and advise, Raiza John RN documented in this encounter [facility] 03-08-2025 Telephone encounter Note Letter printed Jaci Arroyo MD [facility] 03-08-2025 Telephone encounter Note Spouse (Eli) calls to request a copy of the letter from Jessie Harmon that states patient is unable to make decisions for himself. Letter on file is not signed and spouse says it needs to be. Did not see anything in scanned documents. Eli asking if office has a copy of signed letter or could Dr. Arroyo print another one and sign it. Eli needs the letter by tomorrow morning for care plan meeting as patient is at [facility]. Please review and advise, Raiza John RN [facility] 03-02-2025 Note HNO ID: [id number] Author: ?, ?, ? Service: ? Author Type: LICENSED NURSE Type: Progress Notes Filed: 03/02/2025 13:41 Note Text: Ambulatory Ear Lavage Pre-treatment: No pre-treatment Treatment: Both ears Equipment and Irrigation solution and Volume used: Single use syringe with single use irrigation tip Water Total Irrigation Volume: 400mL Return flow appearance: Debris Patient tolerated procedure: yes Tympanic membrane assessment: Tympanic membrane assessed by LIP pre and post procedure [facility] 03-02-2025 History of Presen t illness Narrative Ambulatory Ear Lavage Pre-treatment: No pre-treatment Treatment: Both ears Equipment and Irrigation solution and Volume used: Single use syringe with single use irrigation tip Water Total Irrigation Volume: 400mL Return flow appearance: Debris Patient tolerated procedure: yes Tympanic membrane assessment: Tympanic membrane assessed by LIP pre and post procedure . documented in this encounter [facility] 03-02-2025 Note HNO ID: [id number] Author: MARIANO BECKMAN APRN.ESTELLA Service: ? Author Type: Nurse Practitioner Type: Progress Notes Filed: 03/02/2025 13:41 Note Text: . [facility] 02-18-2025 Telephone encounter Note Faxed recent pcp ov notes to [facility], per request. Confirmation received. Reports [facility] informed her patient could move into [facility] in 1-2 weeks but they would need pcp ov notes. reports pt is having trouble with balance. [facility] 02-18-2025 Miscellaneous Notes Faxed recent pcp ov notes to [facility], per request. Confirmation received. Reports [facility] informed her patient could move into [facility] in 1-2 weeks but they would need pcp ov notes. reports pt is having trouble with balance. documented in this encounter [facility] 02-17-2025 Telephone encounter Note Called back and patient's , Eli, wanted to verify that the metoprolol was discontinued at last office visit with Dr. Johansen. Note reviewed and verified. Medication is d/c'd in Epic. Rody Main RN [facility] 02-17-2025 Miscellaneous Notes Called back and patient's , Eli, wanted to verify that the metoprolol was discontinued at last office visit with Dr. Johansen. Note reviewed and verified. Medication is d/c'd in Epic. Rody Main RN Patient called in and asked that a nurse of Dr Johansen please call her back LUCÍA. There is a question regarding a medication that [facility] has. Please call spouse back at [phone]. Thank you! Karlee Delarosa documented in this encounter [facility] 02-15-2025 Telephone encounter Note Pt notified. Monica Cruz MA [facility] 02-15-2025 Miscellaneous Notes Pt notified. Monica Cruz MA OK to refill as ordered Jaci Arroyo MD Pt's calls to request rx for ferrous sul 325 mg. Pt reports [place] was [place] reports she thinks he took it before that also. reports she cannot find this otc. Last OV: 01/14/25 - Next scheduled appt: 01/31/25 is requesting rx [facility] [place] Call when this has been done. Dimple Agutsin LPN documented in this encounter [facility] 02-15-2025 Telephone encounter Note OK to refill as ordered Jaci Arroyo MD [facility] 02-15-2025 Telephone encounter Note Pt's calls to request rx for ferrous sul 325 mg. Pt reports pt was taking [place]. reports she thinks he took it before that also. reports she cannot find this otc. Last OV: 01/14/25 - Next scheduled appt: 01/31/25 is requesting [facility] [place]. Call when this has been done. Dimple Agustin LPN [facility] 02-15-2025 Telephone encounter Note Patient called in and asked that a nurse of Dr Johansen please call her back LUCÍA. There is a question regarding a medication that [facility] has. Please call spouse back at [phone]. Thank you! Karlee Delarosa [facility] 02-03-2025 Telephone encounter Note Pt's was calling in asking questions about when he needed to get his labs done that Dr Arroyo had ordered in January. I let her know he was to get those done closer to his April appointment. She verbalized understanding. She reports Pt got the Pregabalin done when he was in the group home. Khris Gutierrez RN [facility] 02-03-2025 Miscellaneous Notes Pt's was calling in asking questions about when he needed to get his labs done that Dr Arroyo had ordered in January. I let her know he was to get those done closer to his April appointment. She verbalized understanding. She reports Pt got the Pregabalin done when he was in the group home. Khris Gutierrez RN documented in this encounter [facility] 02-01-2025 Instructions Robin Johansen MD - 02/01/2025 10:02 AM EDT We are stopping the Metoprolol USE YOUR WALKER documented in this encounter [facility] 02-01-2025 History of Presen t illness Narrative Images from the original note were not included. [facility] SE[facility]IONAL CARDIOLOGY Cardiology ([address]) [address] [facility] [id number] OUTPATIENT VISIT DATE 02/01/2025 PRIMARY CARE PHYSICIAN: Jaci Arroyo [address] [facility] [place] [address] HISTORY OF PRESENT ILLNESS: Mr. Zee is a 69 year old gentleman with a history of coronary artery disease and prior coronary artery bypass grafting in October 2016 complicated by left hemispheric CVA. He has resulting weakness that is right-sided and dysphasia. He was accompanied to the office visit by his . Unfortunately, patient continues to have episodes of falls. The mostly are mechanical in nature. He is noncompliant with his walker all at home. He has not had symptoms concerning for CHF including PND, orthopnea, lower extremity edema. There has been no no current or symptoms concerning for palpitations or heart racing. 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 Kimbrough on 10/30/2016. SECONDARY PROCEDURES PERFORMED: 1. Cerebral angiography and stenting of the left subclavian artery performed by Dr. West on 11/02/2016. 2. Tracheostomy performed by Dr. Delgado on 11/07/2016. 3. Fluoroscopically guided placement of gastrostomy tube into the stomach performed on 11/07/2016. PAST MEDICAL HISTORY Diagnosis Date Acute cerebral infarction (HCC) left LEANN (acute kidney injury) Anemia Aneurysm Anxiety state Atrial fibrillation (HCC) 11/2016 Balanitis CAD (coronary artery disease) Carotid stenosis COPD (chronic obstructive pulmonary disease) (HCC) Dysphasia Emphysema lung (HCC) Epilepsy ([facility]) History of blood transfusion 03/2023 Hypertension Hypoxia 03/2023 DARON (obstructive sleep apnea) PVD (peripheral vascular disease) Respiratory failure (HCC) hypoxic-ventilator dependent Stroke (cerebrum) ([facility]) Tobacco abuse PAST SURGICAL HISTORY Procedure Laterality Date ANKLE SURGERY HX Right 08/07/2023 Dr. Kim. Right ankle ORIF due to fracture CABG CONSULT 10/30/2016 multi vessel COLONOSCOPY SCREENING 04/10/2023 EGD W/O RUST SPEC VARICIES INJ 04/11/2023 EGD W/O BRS SPEC VARICIES INJ 04/10/2023 HEART CATHETERIZATION 09/17/2016 PAST SURGICAL HISTORY OF 2017 Aneurysm and stent surgery related to stroke TRACHEOSTOMY HX SOCIAL HISTORY Social History Tobacco Use Smoking status: Former Current packs/day: 0.00 Average packs/day: 2.0 packs/day for 45.0 years (90.0 ttl pk-yrs) Types: Cigarettes Start date: 07/08/1971 Quit date: 07/08/2016 Years since quittin.5 Smokeless tobacco: Never Tobacco comments: 07/08/2016 Vaping Use Vaping status: Never Used Substance Use Topics Alcohol use: No Drug use: Never FAMILY HISTORY Problem Relation Age of Onset Heart Mother [place] in her 70s, pacemaker Diabetes Mother Stroke Father other (AAA) Father other (CAD) Brother Hypertension Brother ALLERGIES: ALLERGIES Allergen Reactions Lisinopril Swelling, Angioedema Lip swelling after starting lisinopril. Doxycycline GI Upset, Other: See Comments GI upset (stomach ache/cramping/diarrhea) and splotchy face Sulfa (Sulfonamide * Hives Zpak [Azithromycin] Hives MEDICATIONS: baclofen 10 mg tablet Take 1 tablet by mouth three times a day. busPIRone (BUSPAR) 15 mg tablet Take 1 tablet by mouth three times a day. potassium chloride (K-TAB) 10 mEq tablet Take 2 tablets by mouth three times a day. apixaban (ELIQUIS) 5 mg tab(s) Take 1 tablet by mouth every 12 hours. escitalopram oxalate (LEXAPRO) 20 mg tablet Take 1 tablet by mouth once daily. ezetimibe (ZETIA) 10 mg tablet Take 1 tablet by mouth once daily. losartan (COZAAR) 25 mg tablet Take 1 tablet by mouth once daily. metoprolol tartrate, short acting, (LOPRESSOR) 25 mg tablet Take 0.5 tablets by mouth two times a day. pregabalin (LYRICA) 50 mg capsule Take 1 capsule by mouth two times a day for 180 days. amiodarone (PACERONE) 100 mg tablet Take 1 tablet by mouth once daily. amLODIPine (NORVASC) 10 mg tablet Take 1 tablet by mouth once daily. divalproex DR (DEPAKOTE) 125 mg EC tablet Take 1 tablet by mouth two times a day. atorvastatin (LIPITOR) 40 mg tablet Take 1 tablet by mouth once daily. famotidine (PEPCID) 20 mg tablet Take 1 tablet by mouth once daily. traZODone (DESYREL) 100 mg tablet Take 1 tablet by mouth daily at bedtime. OXYGEN, HOME THERAPY, 4 L/min by Nasal Cannula route as directed. phlaxlltdvz-xdcljmfxd-oebshxom (TRELEGY ELLIPTA) 100-62.5-25 mcg inhalation powder Inhale 1 puff as instructed once daily. cetirizine (ZYRTEC) 10 mg tablet Take 1 tablet by mouth once daily. clotrimazole-betamethasone (LOTRISONE) cream Apply to affected area two times a day. albuterol HFA (PROVENTIL HFA, VENTOLIN HFA) 90 mcg/actuation inhaler Inhale 2 puffs as instructed every 4 hours as needed for wheezing/shortness of breath. albuterol (PROVENTIL) 2.5 mg /3 mL (0.083 %) nebulizer solution Use 3 mL via nebulizer every 6 hours as needed for wheezing/shortness of breath. Leg Brace misc 1 Each as directed. RIGHT LEG BRACE (AFO TYPE) fluticasone (FLONASE) 50 mcg/actuation nasal spray Use 1 [place] in each nostril two times a day. Rinse mouth after use. multivitamin tablet Take 1 tablet by mouth once daily. LORazepam (ATIVAN) 1 mg tablet Take 1-2 tablets by mouth three times a day as needed for anxiety for up to 45 days. Take 1-2 pills three times a day Blood Pressure Monitor kit 1 application twice daily. Measure patient for correct size. Patient needs cuff for left arm readings. COMPOUNDED PRESCRIPTION Articulating AFO foot brace for right leg. Send to [employer]. Dx: I63.9 COMPOUNDED PRESCRIPTION EMBER WALKER DX I63.9 weight 162 # REVIEW OF SYSTEMS: Difficult to obtain PHYSICAL EXAMINATION: BP 122/80 (BP Site: Left Arm, BP Position: Sitting, BP Cuff Size: Large Adult) Pulse (!) 43 Resp 16 Ht 177.8 cm (5' 10) Wt 89.8 kg (198 lb) SpO2 94% BMI 28.41 kg/m General: Pleasant gentleman sitting appears comfortable and in no apparent distress. He is able to respond appropriately to questions with yes and no answers. HEENT: Carotid upstrokes are brisk on the right. No carotid upstroke noted on the left. No JVD. Pulmonary: Diminished breath sounds noted throughout. No rales, wheezes, rhonchi Cardiovascular: Normal S1, S2 with regular rate and rhythm. No murmurs, rubs, or gallops Extremities: Warm, well-perfused, immobility noted in his right upper and lower extremity. No lower extremity edema. CARDIOVASCULAR MEDICINE TESTING: ECG in the office 04/03/2021: Sinus bradycardia with first-degree AV block. Left axis deviation. Inferior infarct with Q waves in II, III and aVF. Nonspecific diffuse ST-T wave changes Echocardiogram 12/20/2022: - Technically difficult exam due to suboptimal positioning and body habitus. - Exam indication: CAD - The left ventricle is small. Left ventricular systolic function is normal. EF = 56 5% (2D 4-ch.) Left ventricular diastolic function was not evaluated due to AF. - The right ventricle is normal in size. Right ventricular systolic function is normal. - There are no significant valvular abnormalities. - The patient has not had a prior CC echocardiographic exam for comparison. Echocardiogram [facility] 12/16/2020: Left ventricular systolic function is normal Estimated ejection fraction is 60%. Left atrium is mildly enlarged Mild-moderate (1-2+) mitral valve insufficiency Mild tricuspid valve insufficiency Trivial pulmonic valve insufficiency Right ventricular systolic pressure estimated to be 30 mmHg No evidence of diastolic dysfunction Carotid Ultrasound 11/10/2024: IMPRESSION When compared with the prior study, of 07/17/2023 no significant change is noted on the right side and no significant change is noted on the left side. RIGHT SIDE Common carotid artery: Plaque visualized without evidence of hemodynamically significant stenosis. Internal carotid artery: <50% stenosis consistent with mild carotid artery disease. Tortuous vessel at distal . Findings may be overestimated due to contralateral occlusion . Vertebral artery: Patent and antegrade flow noted. Subclavian artery: Turbulent flow noted, cannot rule out more proximal subclavian artery stenosis. May wish other means of evaluation. LEFT SIDE Common carotid artery: Plaque visualized without evidence of hemodynamically significant stenosis. Internal carotid artery: Total occlusion. Vertebral artery: Patent and antegrade flow noted. Subclavian artery: Turbulent flow noted, cannot rule out more proximal subclavian artery stenosis. May wish other means of evaluation. Patient has history of proximal subclavian artery stent. Unable to adequately visualize stent. Carotid Ultrasound 07/17/2023: IMPRESSION RIGHT SIDE Common carotid artery: Plaque visualized without evidence of hemodynamically significant stenosis. Internal carotid artery: 40-59% stenosis. Vertebral artery: Patent and antegrade flow noted. Subclavian artery: Plaque visualized without evidence of hemodynamically significant stenosis. LEFT SIDE Common carotid artery: Plaque visualized without evidence of hemodynamically significant stenosis. Internal carotid artery: Occluded. External carotid artery: Patent. Vertebral artery: Patent and antegrade flow noted. Subclavian artery: Patent. Cardiac Surgery 10/30/2016: PROCEDURES PERFORMED: Coronary artery bypass graft x5 with left internal mammary artery to left anterior descending artery; and reversed saphenous vein graft to first diagonal branch, obtuse marginal branch, right acute marginal branch and posterior descending artery; with endoscopic vein harvesting. Note the left internal mammary graft is a free graft and its proximal was taken off of the vein graft to the obtuse marginal branch due to a left subclavian stenosis. Neuro IR, Maggy West 10/30/2016: IMPRESSION: 1. The patient is status post successful stenting of the left subclavian artery for critical preocclusive stenosis as discussed above with perfect angiographic result. There is no evidence of residual you/you flow in the cervical left vertebral artery, was improved posterior circulation. 2. 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 3. Additional blood supply to the vertebral artery is visualized through the anastomosis between the left occipital artery and the pericranial left vertebral artery. IMPRESSION: Mr. Zee is a 69 year old gentleman with a history of multivessel coronary artery disease and coronary bypass grafting in October 2016 (free [place]KEFIELD-LAD Y-graft from SVG-OM, SVG-D1, -OM, -PDA, -AM of RCA), complicated by left MCA stroke. He is also treated for paroxysmal atrial fibrillation, hypertension and dyslipidemia. He has a prior significant smoking history and quit at the time of his coronary bypass grafting. He presents to the office for routine follow-up PLAN AND RECOMMENDATIONS: 1. Coronary artery disease involving [place] coronary artery of [place] heart without angina pectoris - ICD9: 414.01, ICD10: I25.10 (primary diagnosis) Difficult to evaluate for symptoms. No evidence that he is having anginal symptoms. Continue to encourage activity. 2. Paroxysmal atrial fibrillation (HCC) - ICD9: 427.31, ICD10: I48.0 Maintained on low-dose amiodarone. He has developed some bradycardia. I discontinued metoprolol 3. Essential hypertension - ICD9: 401.9, ICD10: I10 Adequate control on current regimen 4. Mixed hyperlipidemia - ICD9: 272.2, ICD10: E78.2 Maintained on atorvastatin 40 mg daily/Zetia 10 mg daily. Fasting blood work from March 2024 was reviewed. LDL cholesterol 61 mg/dL 5. Occlusion of left carotid artery - ICD9: 433.10, ICD10: I65.22 Follows with vascular surgery 6. Sinus bradycardia - ICD9: 427.89, ICD10: R00.1 Robin Johansen MD documented in this encounter [facility] 02-01-2025 Note HNO ID: [id number] Author: ROBIN JOHANSEN MD Service: ? Author Type: Physician Type: Progress Notes Filed: 02/01/2025 12:09 Note Text: [facility] SE[facility]IONAL CARDIOLOGY Cardiology ([facility]) [address] [facility] [id number] OUTPATIENT VISIT DATE 02/01/2025 PRIMARY CARE PHYSICIAN: Jaci Arroyo [address] [place] [address] HISTORY OF PRESENT ILLNESS: Mr. Zee is a 69 year old gentleman with a history of coronary artery disease and prior coronary artery bypass grafting in October 2016 complicated by left hemispheric CVA. He has resulting weakness that is right-sided and dysphasia. He was accompanied to the office visit by his . Unfortunately, patient continues to have episodes of falls. The mostly are mechanical in nature. He is noncompliant with his walker all at home. He has not had symptoms concerning for CHF including PND, orthopnea, lower extremity edema. There has been no no current or symptoms concerning for palpitations or heart racing. 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 Kimbrough on 10/30/2016. SECONDARY PROCEDURES PERFORMED: 1. Cerebral angiography and stenting of the left subclavian artery performed by Dr. West on 11/02/2016. 2. Tracheostomy performed by Dr. Delgado on 11/07/2016. 3. Fluoroscopically guided placement of gastrostomy tube into the stomach performed on 11/07/2016. PAST MEDICAL HISTORY Diagnosis Date Acute cerebral infarction (HCC) left LEANN (acute kidney injury) Anemia Aneurysm Anxiety state Atrial fibrillation (HCC) 11/2016 Balanitis CAD (coronary artery disease) Carotid stenosis COPD (chronic obstructive pulmonary disease) (HCC) Dysphasia Emphysema lung (HCC) Epilepsy (HCC) History of blood transfusion 03/2023 Hypertension Hypoxia 03/2023 DARON (obstructive sleep apnea) PVD (peripheral vascular disease) Respiratory failure ([facility]) hypoxic-ventilator dependent Stroke (cerebrum) ([facility]) Tobacco abuse PAST SURGICAL HISTORY Procedure Laterality Date ANKLE SURGERY HX Right 08/07/2023 Dr. Kim. Right ankle ORIF due to fracture CABG CONSULT 10/30/2016 multi vessel COLONOSCOPY SCREENING 04/10/2023 EGD W/O RUST SPEC VARICIES INJ 04/11/2023 EGD W/O RUST SPEC VARICIES INJ 04/10/2023 HEART CATHETERIZATION 09/17/2016 PAST SURGICAL HISTORY OF 2017 Aneurysm and stent surgery related to stroke TRACHEOSTOMY HX SOCIAL HISTORY Social History Tobacco Use Smoking status: Former Current packs/day: 0.00 Average packs/day: 2.0 packs/day for 45.0 years (90.0 ttl pk-yrs) Types: Cigarettes Start date: 07/08/1971 Quit date: 07/08/2016 Years since quittin.5 Smokeless tobacco: Never Tobacco comments: 07/08/2016 Vaping Use Vaping status: Never Used Substance Use Topics Alcohol use: No Drug use: Never FAMILY HISTORY Problem Relation Age of Onset Heart Mother [place] in her 70s, pacemaker Diabetes Mother Stroke Father other (AAA) Father other (CAD) Brother Hypertension Brother ALLERGIES: ALLERGIES Allergen Reactions Lisinopril Swelling, Angioedema Lip swelling after starting lisinopril. Doxycycline GI Upset, Other: See Comments GI upset (stomach ache/cramping/diarrhea) and splotchy face Sulfa (Sulfonamide * Hives Zpak [Azithromycin] Hives MEDICATIONS: baclofen 10 mg tablet Take 1 tablet by mouth three times a day. busPIRone (BUSPAR) 15 mg tablet Take 1 tablet by mouth three times a day. potassium chloride (K-TAB) 10 mEq tablet Take 2 tablets by mouth three times a day. apixaban (ELIQUIS) 5 mg tab(s) Take 1 tablet by mouth every 12 hours. escitalopram oxalate (LEXAPRO) 20 mg tablet Take 1 tablet by mouth once daily. ezetimibe (ZETIA) 10 mg tablet Take 1 tablet by mouth once daily. losartan (COZAAR) 25 mg tablet Take 1 tablet by mouth once daily. metoprolol tartrate, short acting, (LOPRESSOR) 25 mg tablet Take 0.5 tablets by mouth two times a day. pregabalin (LYRICA) 50 mg capsule Take 1 capsule by mouth two times a day for 180 days. amiodarone (PACERONE) 100 mg tablet Take 1 tablet by mouth once daily. amLODIPine (NORVASC) 10 mg tablet Take 1 tablet by mouth once daily. divalproex DR (DEPAKOTE) 125 mg EC tablet Take 1 tablet by mouth two times a day. atorvastatin (LIPITOR) 40 mg tablet Take 1 tablet by (more content not included)... [facility] 01-18-2025 Note Patient Outreach ([facility]) AFSHIN ZEE ([id number]) 1955 M Date Time Provider Department 01/18/25 EARL HARRISON During your visit today, we recorded the following information about you: Allergies As of Date: 01/18/2025 Noted Allergy Reaction LISINOPRIL 09/27/2016 7 - Swelling 18 - Angioedema Comments: Lip swelling after starting lisinopril. DOXYCYCLINE 12/11/2022 8 - GI Upset 14 - Other: See Comments Comments: GI upset (stomach ache/cramping/diarrhea) and splotchy face SULFA (SULFONAMIDE ANTIBIOTICS) 03/11/2019 4 - Hives ZPAK (AZITHROMYCIN) 10/03/2018 4 - Hives Date Reviewed: 01/14/2025 Reviewed by: Monica Cruz MA - Fully Assessed Visit Diagnosis:Tobacco abuse [Z72.0] Order(s):CONSULT L[facility]G [facility]CREENING [facility] [[id number]] Order #: [id number]: 1 FUTURE Prescriptions as of 01/21/2025 - baclofen 10 mg tablet Take 1 tablet by mouth three times a day. - busPIRone (BUSPAR) 15 mg tablet Take 1 tablet by mouth three times a day. - potassium chloride (K-TAB) 10 mEq tablet Take 2 tablets by mouth three times a day. - apixaban (ELIQUIS) 5 mg tab(s) Take 1 tablet by mouth every 12 hours. - escitalopram oxalate (LEXAPRO) 20 mg tablet Take 1 tablet by mouth once daily. - ezetimibe (ZETIA) 10 mg tablet Take 1 tablet by mouth once daily. - losartan (COZAAR) 25 mg tablet Take 1 tablet by mouth once daily. - metoprolol tartrate, short acting, (LOPRESSOR) 25 mg tablet Take 0.5 tablets by mouth two times a day. - pregabalin (LYRICA) 50 mg capsule Take 1 capsule by mouth two times a day for 180 days. - amiodarone (PACERONE) 100 mg tablet Take 1 tablet by mouth once daily. - amLODIPine (NORVASC) 10 mg tablet Take 1 tablet by mouth once daily. - divalproex DR (DEPAKOTE) 125 mg EC tablet Take 1 tablet by mouth two times a day. - atorvastatin (LIPITOR) 40 mg tablet Take 1 tablet by mouth once daily. - famotidine (PEPCID) 20 mg tablet Take 1 tablet by mouth once daily. - traZODone (DESYREL) 100 mg tablet Take 1 tablet by mouth daily at bedtime. - OXYGEN, HOME THERAPY, 4 L/min by Nasal Cannula route as directed. - yqmkhfyyhlw-bxxjlybqg-onmxmigl (TRELEGY ELLIPTA) 100-62.5-25 mcg inhalation powder Inhale 1 puff as instructed once daily. - cetirizine (ZYRTEC) 10 mg tablet Take 1 tablet by mouth once daily. - clotrimazole-betamethasone (LOTRISONE) cream Apply to affected area two times a day. - albuterol HFA (PROVENTIL HFA, VENTOLIN HFA) 90 mcg/actuation inhaler Inhale 2 puffs as instructed every 4 hours as needed for wheezing/shortness of breath. - albuterol (PROVENTIL) 2.5 mg /3 mL (0.083 %) nebulizer solution Use 3 mL via nebulizer every 6 hours as needed for wheezing/shortness of breath. - Leg Brace misc 1 Each as directed. RIGHT LEG BRACE (AFO TYPE) - fluticasone (FLONASE) 50 mcg/actuation nasal spray Use 1 [place] in each nostril two times a day. Rinse mouth after use. - multivitamin tablet Take 1 tablet by mouth once daily. - LORazepam (ATIVAN) 1 mg tablet Take 1-2 tablets by mouth three times a day as needed for anxiety for up to 45 days. Take 1-2 pills three times a day - Blood Pressure Monitor kit 1 application twice daily. Measure patient for correct size. Patient needs cuff for left arm readings. - COMPOUNDED PRESCRIPTION Articulating AFO foot brace for right leg. Send to [employer]. Dx: I63.9 - COMPOUNDED PRESCRIPTION EMBER WALKER DX I63.9 weight 162 # Problem List As Of Date 01/18/2025 Noted Resolved Hyperlipidemia [E78.5] 06/06/2010 Elevated blood pressure [HFP0285] 06/06/2010 03/20/2019 Erectile dysfunction [N52.9] 06/06/2010 Cervicalgia [M54.2] 04/16/2016 Chronic right shoulder pain [M25.511, G89.29] 04/16/2016 Occlusion of left carotid artery [I65.22] 07/02/2016 Stroke (cerebrum) (HCC) [I63.9] Aneurysm (HCC) [I72.9] Essential hypertension [I10] 06/25/2017 Anxiety [F41.9] 09/04/2017 Chronic insomnia [F51.04] 04/04/2018 Right hemiplegia (HCC) [G81.91] 04/30/2018 Bradycardia [R00.1] 03/20/2019 Dysphasia [R47.02] Coronary artery disease involving [place]*04/02/2021 Paroxysmal atrial fibrillation (HCC) [I48.0] 04/03/2021 Aphasia as late effect of cerebrovascular accid*05/10/2022 Bacterial pneumonia [J15.9] 11/17/2022 03/12/2023 Tracheostomy status (HCC) [Z93.0] 12/04/2022 02/26/2023 Respiratory failure, unspecified chronicity, un*03/07/2023 03/12/2023 Stage 3a chronic kidney disease (HCC) [N18.31] 03/07/2023 COPD with exacerbation (HCC) [J44.1] 03/12/2023 03/12/2023 Centrilobular emphysema (HCC) [J43.2] 03/12/2023 Former cigarette smoker [Z87.891] 03/12/2023 Stage 3 chronic kidney disease, unspecified whe*06/11/2023 Pre-operative cardiovascular examination [Z01.8*07/08/2023 Focal epilepsy (HCC) [G40.109] 09/04/2024 Moderate recurrent major depression (HCC) [F33.*01/14/2025 Encounter Number: [id number] (more content not included)... [facility] 01-14-2025 History of Presen t illness Narrative Chief Complaint Patient presents with: group home discharge: [facility] HPI Afshin Zee is a 69 year old male who presents here today for [facility] discharge follow up. Here with . Pt d/c from [facility] on 01/13/25 for frequent falls and respite care. Hx of stroke. He is going in for a re-evaluation next for PT/ST/OT. Needs an order to take there. Med list reviewed and updated. Past medical history, appointments, medications, allergies reviewed. Previous Medical History PAST MEDICAL HISTORY Diagnosis Date Acute cerebral infarction (HCC) left LEANN (acute kidney injury) Anemia Aneurysm Anxiety state Atrial fibrillation (HCC) 11/2016 Balanitis CAD (coronary artery disease) Carotid stenosis COPD (chronic obstructive pulmonary disease) (HCC) Dysphasia Emphysema lung (HCC) Epilepsy (HCC) History of blood transfusion 03/2023 Hypertension Hypoxia 03/2023 DARON (obstructive sleep apnea) PVD (peripheral vascular disease) Respiratory failure (HCC) hypoxic-ventilator dependent Stroke (cerebrum) (HCC) Tobacco abuse Previous Surgical History PAST SURGICAL HISTORY Procedure Laterality Date ANKLE SURGERY HX Right 08/07/2023 Dr. Kim. Right ankle ORIF due to fracture CABG CONSULT 10/30/2016 multi vessel COLONOSCOPY SCREENING 04/10/2023 EGD W/O RUST SPEC VARICIES INJ 04/11/2023 EGD W/O BRS SPEC VARICIES INJ 04/10/2023 HEART CATHETERIZATION 09/17/2016 PAST SURGICAL HISTORY OF 2017 Aneurysm and stent surgery related to stroke TRACHEOSTOMY HX Family History FAMILY HISTORY Problem Relation Age of Onset Heart Mother [place] in her 70s, pacemaker Diabetes Mother Stroke Father other (AAA) Father other (CAD) Brother Hypertension Brother Patient Allergies ALLERGIES Allergen Reactions Lisinopril Swelling, Angioedema Lip swelling after starting lisinopril. Doxycycline GI Upset, Other: See Comments GI upset (stomach ache/cramping/diarrhea) and splotchy face Sulfa (Sulfonamide * Hives Zpak [Azithromycin] Hives Current Medications Current Outpatient Medications on File Prior to Visit Medication Sig cetirizine (ZYRTEC) 10 mg tablet Take 1 tablet by mouth once daily. divalproex DR (DEPAKOTE) 125 mg EC tablet Take 125 mg by mouth two times a day. furosemide (LASIX) 20 mg tablet Take 20 mg by mouth once daily. pregabalin (LYRICA) 50 mg capsule Take 1 capsule by mouth two times a day for 180 days. Leg Brace misc 1 Each as directed. RIGHT LEG BRACE (AFO TYPE) SPIRIVA RESPIMAT 2.5 mcg/actuation inhaler Inhale 2 Puffs as instructed once daily. (Patient not taking: Reported on 11/10/2024) pjfevggmouf-kdoxjwmha-eefdchwa (TRELEGY ELLIPTA) 100-62.5-25 mcg inhalation powder Inhale 1 Puff as instructed once daily. metoprolol tartrate, short acting, (LOPRESSOR) 25 mg tablet Take 0.5 tablets by mouth two times a day. fluticasone (FLONASE) 50 mcg/actuation nasal spray Use 1 [place] in each nostril two times a day. Rinse mouth after use. losartan (COZAAR) 25 mg tablet Take 1 tablet by mouth once daily. baclofen 10 mg tablet Take 1 tablet by mouth three times a day. amLODIPine (NORVASC) 10 mg tablet Take 0.5 tablets by mouth two times a day. Take 1/2 tablet twice daily traZODone (DESYREL) 100 mg tablet Take 1 tablet by mouth daily at bedtime. albuterol HFA (PROVENTIL HFA, VENTOLIN HFA) 90 mcg/actuation inhaler INHALE 2 PUFFS INTO THE LUNGS EVERY 4 HOURS NEEDED multivitamin tablet Take 1 tablet by mouth once daily. famotidine (PEPCID) 20 mg tablet Take 20 mg by mouth once daily. hydroCHLOROthiazide 12.5 mg tablet Take 1 tablet by mouth every morning. (Patient not taking: Reported on 10/06/2024) clotrimazole-betamethasone (LOTRISONE) cream Apply to affected area two times a day. OXYGEN, HOME THERAPY, 4 L/min by Nasal Cannula route as directed. busPIRone (BUSPAR) 15 mg tablet take 1 tablet by mouth three times a day LORazepam (ATIVAN) 1 mg tablet Take 1-2 tablets by mouth three times a day as needed for anxiety for up to 45 days. Take 1-2 pills three times a day potassium chloride (K-TAB) 10 mEq tablet Take 2 tablets by mouth three times a day. albuterol (PROVENTIL) 2.5 mg /3 mL (0.083 %) nebulizer solution INHALE 1 VIAL VIA NEBULIZER EVERY 4 HOURS NEEDED FOR WHEEZING/SHORTNESS OF BREATH. USE OVER 5-15 MINUTES clopidogrel (PLAVIX) 75 mg tablet Take 75 mg by mouth once daily. (Patient not taking: Reported on 10/06/2024) ezetimibe (ZETIA) 10 mg tablet Take 1 tablet by mouth once daily. amiodarone (PACERONE) 100 mg tablet TAKE 1 TABLET BY MOUTH ONCE DAILY *DO NOT TAKE IF HEART RATE IS LESS THAN 40* atorvastatin (LIPITOR) 40 mg tablet take 1 tablet by mouth once daily escitalopram oxalate (LEXAPRO) 20 mg tablet take 1 tablet by mouth once daily apixaban (ELIQUIS) 5 mg tab(s) take 1 tablet by mouth twice daily acetaminophen (TYLENOL EXTRA STRENGTH) 500 mg tablet Take 2 tablets by mouth three times a day as needed for pain. (Patient not taking: Reported on 10/07/2024) Blood Pressure Monitor kit 1 application twice daily. Measure patient for correct size. Patient needs cuff for left arm readings. COMPOUNDED PRESCRIPTION Articulating AFO foot brace for right leg. Send to [employer]. Dx: I63.9 COMPOUNDED PRESCRIPTION EMBER WALKER DX I63.9 weight 162 # No current facility-administered medications on file prior to visit. Social History Social History Tobacco Use Smoking status: Former Current packs/day: 0.00 Average packs/day: 2.0 packs/day for 45.0 years (90.0 ttl pk-yrs) Types: Cigarettes Start date: 07/08/1971 Quit date: 07/08/2016 Years since quittin.5 Smokeless tobacco: Never Tobacco comments: 07/08/2016 Vaping Use Vaping status: Never Used Substance Use Topics Alcohol use: No Drug use: Never EXAM: BP 124/74 Pulse (!) 52 Resp 18 Wt 87.1 kg (192 lb 0.3 oz) SpO2 95% BMI 27.55 kg/m General Appearance: Well appearing, alert, in no acute distress, well-hydrated, well nourished. and used wheelchair to get back to office, was able to walk into exam room. Lungs: Lungs clear to auscultation. No wheezing, rhonchi, rales.. Heart: RRR without murmur, gallop, or rubs. No ectopy. Health Maintenance List Abdominal Aortic Aneurysm Screening Never done Hepatitis C Screening Never done Lung Cancer Screening Never done Shingrix Vaccine(1 of 2) Never done Covid-19 Vaccine() due on 07/21/2024 Advance Directive Discussion due on 08/05/2024 Medicare Advantage Annual Wellness Visit due on 08/05/2024 Depression Screening due on 12/30/2024 LDL Cholesterol due on 04/02/2025 Serum Creatinine due on 04/02/2025 Annual PCP Team Chronic Disease Visit due on 12/03/2025 Diabetes Screening due on 04/02/2027 Colorectal Cancer Screening due on 06/19/2028 Lipid Screening due on 04/02/2029 DTaP,Tdap,Td Vaccine(2 - Td or Tdap) due on 05/10/2031 Influenza Vaccine Completed RSV Vaccine Completed Pneumococcal Vaccine: 50+ Completed Data reviewed none ASSESSMENT/PLAN: 1. Essential hypertension - ICD9: 401.9, ICD10: I10 (primary diagnosis) - Controlled - Continue current medications - Recommend home blood pressure monitoring, to bring results to next visit - Encouraged sodium restriction, DASH or Mediterranean diet - Recommend regular aerobic exercise - AMLODIPINE 10 MG TABLET - COMPREHENSIVE METABOLIC PANEL - LIPID PANEL, FASTING - COMPLETE BLOOD COUNT - THYROID STIMULATING HORMONE 2. Cervicalgia - ICD9: 723.1, ICD10: M54.2 Continue current medications. - BACLOFEN 10 MG TABLET 3. Anxiety - ICD9: 300.00, ICD10: F41.9 Stable Continue current medications. - ESCITALOPRAM 20 MG TABLET 4. Hyperlipidemia, unspecified hyperlipidemia type - ICD9: 272.4, ICD10: E78.5 - Controlled - Continue current medications - Counseled on healthy diet and regular exercise - EZETIMIBE 10 MG TABLET - COMPREHENSIVE METABOLIC PANEL - LIPID PANEL, FASTING 5. Seizure (HCC) - ICD9: 780.39, ICD10: R56.9 Follows with Neuro Continue current medications. - PREGABALIN 50 MG CAPSULE 6. Focal epilepsy (HCC) - ICD9: 345.50, ICD10: G40.109 - PREGABALIN 50 MG CAPSULE 7. Centrilobular emphysema (HCC) - ICD9: 492.8, ICD10: J43.2 - Symptoms controlled - Continue current medications - Follows with Pulm - OXYGEN (HOME THERAPY) - ALBUTEROL SULFATE HFA 90 MCG/ACTUATION AEROSOL INHALER - ALBUTEROL SULFATE 2.5 MG/3 ML (0.083 %) SOLUTION FOR NEBULIZATION 8. Chronic respiratory failure with hypoxia (HCC) - ICD9: 518.83, 799.02, ICD10: J96.11 - OXYGEN (HOME THERAPY) 9. Chronic insomnia - ICD9: 780.52, ICD10: F51.04 Continue current medications. 10. Acute cough - ICD9: 786.2, ICD10: R05.1 - CETIRIZINE 10 MG TABLET 11. Moderate recurrent major depression (HCC) - ICD9: 296.32, ICD10: F33.1 - THYROID STIMULATING HORMONE 12. CVA, old, hemiparesis (HCC) - ICD9: 438.20, ICD10: I69.359 Stable - THYROID STIMULATING HORMONE - CONSULT TO PHYSICAL THERAPY - CONSULT TO STITCH BONDING MACHINE DRAWER IN - CONSULT TO SPEECH THERAPY 13. Stage 3a chronic kidney disease (HCC) - ICD9: 585.3, ICD10: N18.31 - eGFR: 61 Stable Monitor Follow up in 3 months with labs and virtual visit I agree with the Chief Complaint, ROS, and Past Histories independently gathered by the clinical technical support technician and the remaining scribed note accurately describes my personal service to the patient. Medical Decision Making: Problems: Moderate: 2+ stable chronic illnesses Data: Unique test(s) ordered: 3+ Risk: Moderate: Drug management Medical Decision Making Level: 4 - Moderate Jaci Arroyo MD The documentation for this note was completed by Monica Cruz MA acting as scribe for Jaci Arroyo MD. January 14, 2025 1:58 PM. Monica Cruz MA documented in this encounter [facility] 01-14-2025 Note HNO ID: [id number] Author: JACI ARROYO MD Service: ? Author Type: Physician Type: Progress Notes Filed: 01/14/2025 17:11 Note Text: Chief Complaint Patient presents with: group home discharge: [facility] [place] HPI Afshin Zee is a 69 year old male who presents here today for [facility] discharge follow up. Here with . Pt d/[facility] for frequent falls and respite care. Hx of stroke. He is going in for a re-evaluation next for PT/ST/OT. Needs an order to take there. Med list reviewed and updated. Past medical history, appointments, medications, allergies reviewed. Previous Medical History PAST MEDICAL HISTORY Diagnosis Date Acute cerebral infarction (HCC) left LEANN (acute kidney injury) Anemia Aneurysm Anxiety state Atrial fibrillation (HCC) 11/2016 Balanitis CAD (coronary artery disease) Carotid stenosis COPD (chronic obstructive pulmonary disease) (HCC) Dysphasia Emphysema lung (HCC) Epilepsy (HCC) History of blood transfusion 03/2023 Hypertension Hypoxia 03/2023 DARON (obstructive sleep apnea) PVD (peripheral vascular disease) Respiratory failure (HCC) hypoxic-ventilator dependent Stroke (cerebrum) (HCC) Tobacco abuse Previous Surgical History PAST SURGICAL HISTORY Procedure Laterality Date ANKLE SURGERY HX Right 08/07/2023 Dr. Kim. Right ankle ORIF due to fracture CABG CONSULT 10/30/2016 multi vessel COLONOSCOPY SCREENING 04/10/2023 [facility] 04/11/2023 EGD W/O [facility] SPEC VARICIES INJ 04/10/2023 HEART CATHETERIZATION 09/17/2016 PAST SURGICAL HISTORY OF 2017 Aneurysm and stent surgery related to stroke TRACHEOSTOMY HX Family History FAMILY HISTORY Problem Relation Age of Onset Heart Mother [place] in her 70s, pacemaker Diabetes Mother Stroke Father other (AAA) Father other (CAD) Brother Hypertension Brother Patient Allergies ALLERGIES Allergen Reactions Lisinopril Swelling, Angioedema Lip swelling after starting lisinopril. Doxycycline GI Upset, Other: See Comments GI upset (stomach ache/cramping/diarrhea) and splotchy face Sulfa (Sulfonamide * Hives Zpak [Azithromycin] Hives Current Medications Current Outpatient Medications on File Prior to Visit Medication Sig cetirizine (ZYRTEC) 10 mg tablet Take 1 tablet by mouth once daily. divalproex DR (DEPAKOTE) 125 mg EC tablet Take 125 mg by mouth two times a day. furosemide (LASIX) 20 mg tablet Take 20 mg by mouth once daily. pregabalin (LYRICA) 50 mg capsule Take 1 capsule by mouth two times a day for 180 days. Leg Brace misc 1 Each as directed. RIGHT LEG BRACE (AFO TYPE) SPIRIVA RESPIMAT 2.5 mcg/actuation inhaler Inhale 2 Puffs as instructed once daily. (Patient not taking: Reported on 11/10/2024) vlhonjlqhor-uoqvsotdl-qqbpoqpd (TRELEGY ELLIPTA) 100-62.5-25 mcg inhalation powder Inhale 1 Puff as instructed once daily. metoprolol tartrate, short acting, (LOPRESSOR) 25 mg tablet Take 0.5 tablets by mouth two times a day. fluticasone (FLONASE) 50 mcg/actuation nasal spray Use 1 [place] in each nostril two times a day. Rinse mouth after use. losartan (COZAAR) 25 mg tablet Take 1 tablet by mouth once daily. baclofen 10 mg tablet Take 1 tablet by mouth three times a day. amLODIPine (NORVASC) 10 mg tablet Take 0.5 tablets by mouth two times a day. Take 1/2 tablet twice daily traZODone (DESYREL) 100 mg tablet Take 1 tablet by mouth daily at bedtime. albuterol HFA (PROVENTIL HFA, VENTOLIN HFA) 90 mcg/actuation inhaler INHALE 2 PUFFS INTO THE LUNGS EVERY 4 HOURS NEEDED multivitamin tablet Take 1 tablet by mouth once daily. famotidine (PEPCID) 20 mg tablet Take 20 mg by mouth once daily. hydroCHLOROthiazide 12.5 mg tablet Take 1 tablet by mouth every morning. (Patient not taking: Reported on 10/06/2024) clotrimazole-betamethasone (LOTRISONE) cream Apply to affected area two times a day. OXYGEN, HOME THERAPY, 4 L/min by Nasal Cannula route as directed. busPIRone (BUSPAR) 15 mg tablet take 1 tablet by mouth three times a day LORazepam (ATIVAN) 1 mg tablet Take 1-2 tablets by mouth three times a day as needed for anxiety for up to 45 days. Take 1-2 pills three times a day potassium chloride (K-TAB) 10 mEq tablet Take 2 tablets by mouth three times a day. albuterol (PROVENTIL) 2.5 mg /3 mL (0.083 %) nebulizer solution INHALE 1 VIAL VIA NEBULIZER EVERY 4 HOURS NEEDED FOR WHEEZING/SHORTNESS OF BREATH. USE OVER 5-15 MINUTES clopidogrel (PLAVIX) 75 mg tablet Take 75 mg by mouth once daily. (Patient not taking: Reported on 10/06/2024) ezetimibe (ZETIA) 10 mg tablet Take 1 tablet by mouth once daily. amiodarone (PACERONE) 100 mg tablet TAKE 1 TABLET BY MOUTH ONCE DAILY *DO NOT TAKE IF HEART RATE IS LESS THAN 40* atorvastatin (LIPITOR) 40 mg tablet take 1 tablet by mouth once daily escitalopram oxalate (LEXAPRO) 20 mg tablet take 1 tablet by mouth once daily apixaban (ELIQU (more content not included)... [facility] 01-07-2025 Telephone encounter Note CMN form has been completed and faxed back to information below. Rachel Buckley MA [facility] 01-07-2025 Miscellaneous Notes CMN form has been completed and faxed back to information below. Rachel Buckley MA Office received new CMN for incontinence supplies. Routed to PCP's desk. Once complete fax back to [phone]. Rachel Buckley MA [facility] sent fax asking for Medical Records on pt. Date of service needed is 07/30/24 regarding his incontinence. I do not see that pt was seen in office that day. Please review. [place] fax # [phone] Monica Cruz MA documented in this encounter [facility] 01-07-2025 Telephone encounter Note Office received new CMN for incontinence supplies. Routed to PCP's desk. Once complete fax back to [phone]. Rachel Buckley MA [facility] 12-31-2024 Note HNO ID: [id number] Author: PHONG WILHELM MD Service: ? Author Type: Physician Type: Progress Notes Filed: 01/01/2025 11:44 Note Text: [facility] STAFF PHYSICIAN NOTE OF PERSONAL INVOLVEMENT IN CARE I have reviewed the history and physical examination obtained and documented by the fellow and I personally participated in the lord components. I have discussed the case and management of the patient's care. The following comments revise or confirm relevant lord components of their note. I have communicated my name and active licensure. The patient's identity and physical location were verified at the time of this visit. Either the patient or their legal sales representative jewelry has been informed of the risks and benefits of -- and alternatives to -- treatment through a remote evaluation and consents to proceed with the evaluation remotely. CLINICAL SUMMARY: This is a 69 year old left handed male (stroke left hemisphere secondary to carotid occlusion) - hemiplegia, aphasia and neglect. In May 2024 - he had episodes of staring events. EEG reported showed left temporal sharp waves. He was started on levetiracetam and had mood problems. He was tried on Depakote but had problems with fatigue. He was hospitalized for seizures and EEG was negative around June 2024. He was seen here shortly afterwards. Lyrica was started titrating to 75mg twice daily. He had a few falls. He is on several other medications for multiple medical comorbidities. His dose of Lyrica was decreased to 50mg twice daily. He is now in a nursing facility. He has been on this medication and tolerating this well and he is seizure free. IMPRESSION: This is a 69 year old male who presents with history of focal epilepsy, possibly left temporal. He is stable on the current dose of pregabablin. PLAN: Continue current dose of pregabalin. Check levels of pregabalin prior to next visit. May need further testing if seizures break through. Seizure precautions discussed. Follow up in 6 months. Plan of care discussed with Provider and Family/Significant Other: I spent a total of 15 minutes on the date of the service which included: preparing to see the patient [id number] patient care completing clinical documentation obtaining and/or reviewing separately obtained history counseling and educating the patient/family/caregiver SIGNATURE: Phong Wilhelm MD DATE of SERVICE: December 31, 2024 TIME of SERVICE: 2:05 PM [facility] 12-31-2024 History of Presen t illness Narrative [facility] STAFF PHYSICIAN NOTE OF PERSONAL INVOLVEMENT IN CARE I have reviewed the history and physical examination obtained and documented by the fellow and I personally participated in the lord components. I have discussed the case and management of the patient's care. The following comments revise or confirm relevant lord components of their note. I have communicated my name and active licensure. The patient's identity and physical location were verified at the time of this visit. Either the patient or their legal sales representative jewelry has been informed of the risks and benefits of -- and alternatives to -- treatment through a remote evaluation and consents to proceed with the evaluation remotely. CLINICAL SUMMARY: This is a 69 year old left handed male (stroke left hemisphere secondary to carotid occlusion) - hemiplegia, aphasia and neglect. In May 2024 - he had episodes of staring events. EEG reported showed left temporal sharp waves. He was started on levetiracetam and had mood problems. He was tried on Depakote but had problems with fatigue. He was hospitalized for seizures and EEG was negative around June 2024. He was seen here shortly afterwards. Lyrica was started titrating to 75mg twice daily. He had a few falls. He is on several other medications for multiple medical comorbidities. His dose of Lyrica was decreased to 50mg twice daily. He is now in a nursing facility. He has been on this medication and tolerating this well and he is seizure free. IMPRESSION: This is a 69 year old male who presents with history of focal epilepsy, possibly left temporal. He is stable on the current dose of pregabablin. PLAN: Continue current dose of pregabalin. Check levels of pregabalin prior to next visit. May need further testing if seizures break through. Seizure precautions discussed. Follow up in 6 months. Plan of care discussed with Provider and Family/Significant Other: I spent a total of 15 minutes on the date of the service which included: preparing to see the patient [id number] patient care completing clinical documentation obtaining and/or reviewing separately obtained history counseling and educating the patient/family/caregiver SIGNATURE: Phong Wilhelm MD DATE of SERVICE: December 31, 2024 TIME of SERVICE: 2:05 PM [facility] Patient Name: Afshin Zee Date of : 1955 ESTABLISHED EPILEPSY CLINIC NOTE 12/31/2024 1:30 PM Reason for Visit: Follow Up and Seizures Clinical Summary: Mr. Zee is a 69 year old now left handed (since stroke) male seen in [facility]. Focal Epilepsy (Localization Undetermined) Seizures: 1. 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 He requires assistance with activities of daily living. Patient has right sided weakness (UE > LE) and expressive > receptive aphasia since the stroke. Patient established care with a neurologist in May 2024. At the time, per chart review patient's had reported episodes of staring where he would be responsive when called. The neurologist had ordered an EEG which revealed left temporal sharp waves max at F7-T7. He was placed on levetiracetam 500 mg twice daily. Subsequently, he was admitted to the hospital and diagnosed with pneumonia. There was an episode prior to hospital admission reported as staring off with no response to stimuli when prompted by . While in the hospital, he reported had a number of confusional episodes. He underwent repeat imaging and EEG in the hospital which was reportedly unrevealing and not epileptiform. He was then discharged from hospital. There were concerns about mood side effects from Levetiracetam (LEV) and he was placed on valproate (VPA) which led to fatigability and they self discontinued the medication. He is currently on no ASMs. He was recommended to try clobazam (CLB) but never tried it. After discussion, he was started on Lyrica 75 mg twice daily. Interval Seizure History Patient's and nursing aide at the facility are present for the visit. He is not available to be in the visit. He has having several falls since last visit. They reduced (self reduced) Lyrica to 50 mg BID from 75 mg BID. He has remained stable since and has not had any seizures. He also has not had any falls - nursing aide reports he is removed from the 'high risk for falls' category. They deny any transient neurological symptoms concerning for seizures. They deny episodes of blood on pillow of involuntary movements. He has a routine in the facility and does therapy. They do not report any concerns today. Total # of Current Anti-seizure Medications: 1 Side Effects to Current Anti-seizure Medications: none Seizure Frequency at First Visit: 1 per 6 months Longest Seizure-free Interval: Number of seizure types: 1 Hx of generalized tonic-clonic seizures: No Tongue bite: No Urine or Bowel Incontinence: No Triggers: unknown Postictal Deficits: No Memory complaints: unknown Status Epilepticus or clusters: No Postictal Agitation: No Significant Injuries from Seizures: none Seizure-related driving accidents: No Driving: No Lives Alone: No ED Visits in Last 3 Months: No Hospitalizations in Last 3 Months: No CURRENT OUTPATIENT ANTISEIZURE MEDICATIONS (as of the start of the encounter) divalproex DR (DEPAKOTE) 125 mg EC tablet Take 125 mg by mouth two times a day. pregabalin (LYRICA) 50 mg capsule Take 1 capsule by mouth two times a day for 180 days. Prior Anti-seizure Therapies: Trial Adequacy: Max Daily Dose Achieved: Side Effects: Effectiveness: Comments: Gabapentin, other use Levetiracetam 1000 Psychiatric Pregabalin Valproate Systemic Comorbidities: Major: Cerebrovascular accident Cerebrovascular accident: Ischemic Minor: Obstructive Sleep Apnea, Hemiparesis, Hypertension Episode Description: SEIZURE TYPE 1: Staring Onset: May 2024? Aura: not sure Description: Staring off with no response to stimuli Unknown duration or frequency. Loss of awareness: Duration: Frequency: Last occurred: yes Patient Entered Data: EPILEPSY SCORE 12/31/2024 12:33 PM 12/31/2024 12:33 PM 12/31/2024 12:31 PM First answer obtained - 05/29/2024 3:37 PM PHQ-9 SCORE - - 7 [Mild Depression] 14 [Moderate Depression] JESS 2 SCORE - - - - JESS 7 SCORE - - - - QOLIE-10 SCORE (0=worst; 100=best QoL - higher scores represent better function) - - - - LSSS SCORE (0- no seizures 100- most severe possible seizures) - - - - C-SSRS SCREEN - - - - On average, how many hours of sleep do you get in a 24-hour period? - - - - PROMIS Sleep Disturbance T-SCORE - - - - Have you been diagnosed with Sleep Apnea? - - - - Seizure risk factors: Brain Tumor No DIRECTOR OF ENVIRONMENTAL SERVICES Infections No Developmental Delay No Family history of seizures No Febrile Seizure No Complications No Stroke Yes Traumatic Brain Injury No Previous Epilepsy Evaluations EEG 06/15/24, [facility]: Left temporal sharp waves Other caregivers: Primary Care Provider: Jaci Arroyo MD Current Outpatient Medications Medication Sig cetirizine (ZYRTEC) 10 mg tablet Take 1 tablet by mouth once daily. divalproex DR (DEPAKOTE) 125 mg EC tablet Take 125 mg by mouth two times a day. furosemide (LASIX) 20 mg tablet Take 20 mg by mouth once daily. pregabalin (LYRICA) 50 mg capsule Take 1 capsule by mouth two times a day for 180 days. Leg Brace misc 1 Each as directed. RIGHT LEG BRACE (AFO TYPE) SPIRIVA RESPIMAT 2.5 mcg/actuation inhaler Inhale 2 Puffs as instructed once daily. (Patient not taking: Reported on 11/10/2024) brlacjiqmnj-mfgzysvii-rvpgllge (TRELEGY ELLIPTA) 100-62.5-25 mcg inhalation powder Inhale 1 Puff as instructed once daily. metoprolol tartrate, short acting, (LOPRESSOR) 25 mg tablet Take 0.5 tablets by mouth two times a day. fluticasone (FLONASE) 50 mcg/actuation nasal spray Use 1 [place] in each nostril two times a day. Rinse mouth after use. losartan (COZAAR) 25 mg tablet Take 1 tablet by mouth once daily. baclofen 10 mg tablet Take 1 tablet by mouth three times a day. amLODIPine (NORVASC) 10 mg tablet Take 0.5 tablets by mouth two times a day. Take 1/2 tablet twice daily traZODone (DESYREL) 100 mg tablet Take 1 tablet by mouth daily at bedtime. albuterol HFA (PROVENTIL HFA, VENTOLIN HFA) 90 mcg/actuation inhaler INHALE 2 PUFFS INTO THE LUNGS EVERY 4 HOURS NEEDED multivitamin tablet Take 1 tablet by mouth once daily. famotidine (PEPCID) 20 mg tablet Take 20 mg by mouth once daily. hydroCHLOROthiazide 12.5 mg tablet Take 1 tablet by mouth every morning. (Patient not taking: Reported on 10/06/2024) clotrimazole-betamethasone (LOTRISONE) cream Apply to affected area two times a day. OXYGEN, HOME THERAPY, 4 L/min by Nasal Cannula route as directed. busPIRone (BUSPAR) 15 mg tablet take 1 tablet by mouth three times a day LORazepam (ATIVAN) 1 mg tablet Take 1-2 tablets by mouth three times a day as needed for anxiety for up to 45 days. Take 1-2 pills three times a day potassium chloride (K-TAB) 10 mEq tablet Take 2 tablets by mouth three times a day. albuterol (PROVENTIL) 2.5 mg /3 mL (0.083 %) nebulizer solution INHALE 1 VIAL VIA NEBULIZER EVERY 4 HOURS NEEDED FOR WHEEZING/SHORTNESS OF BREATH. USE OVER 5-15 MINUTES clopidogrel (PLAVIX) 75 mg tablet Take 75 mg by mouth once daily. (Patient not taking: Reported on 10/06/2024) ezetimibe (ZETIA) 10 mg tablet Take 1 tablet by mouth once daily. amiodarone (PACERONE) 100 mg tablet TAKE 1 TABLET BY MOUTH ONCE DAILY *DO NOT TAKE IF HEART RATE IS LESS THAN 40* atorvastatin (LIPITOR) 40 mg tablet take 1 tablet by mouth once daily escitalopram oxalate (LEXAPRO) 20 mg tablet take 1 tablet by mouth once daily apixaban (ELIQUIS) 5 mg tab(s) take 1 tablet by mouth twice daily acetaminophen (TYLENOL EXTRA STRENGTH) 500 mg tablet Take 2 tablets by mouth three times a day as needed for pain. (Patient not taking: Reported on 10/07/2024) Blood Pressure Monitor kit 1 application twice daily. Measure patient for correct size. Patient needs cuff for left arm readings. COMPOUNDED PRESCRIPTION Articulating AFO foot brace for right leg. Send to [employer]. Dx: I63.9 COMPOUNDED PRESCRIPTION EMBER WALKER DX I63.9 weight 162 # No current facility-administered medications for this visit. ALLERGIES Allergen Reactions Lisinopril Swelling, Angioedema Lip swelling after starting lisinopril. Doxycycline GI Upset, Other: See Comments GI upset (stomach ache/cramping/diarrhea) and splotchy face Sulfa (Sulfonamide * Hives Zpak [Azithromycin] Hives PAST MEDICAL HISTORY Diagnosis Date Acute cerebral infarction (HCC) left LEANN (acute kidney injury) Anemia Aneurysm Anxiety state Atrial fibrillation (HCC) 11/2016 Balanitis CAD (coronary artery disease) Carotid stenosis COPD (chronic obstructive pulmonary disease) (HCC) Dysphasia Emphysema lung (HCC) Epilepsy (HCC) History of blood transfusion 03/2023 Hypertension Hypoxia 03/2023 DARON (obstructive sleep apnea) PVD (peripheral vascular disease) Respiratory failure (HCC) hypoxic-ventilator dependent Stroke (cerebrum) (HCC) Tobacco abuse PAST SURGICAL HISTORY Procedure Laterality Date ANKLE SURGERY HX Right 08/07/2023 Dr. Kim. Right ankle ORIF due to fracture CABG CONSULT 10/30/2016 multi vessel COLONOSCOPY SCREENING 04/10/2023 EGD W/O BRSH SPEC VARICIES INJ 04/11/2023 EGD W/O BRSH SPEC VARICIES INJ 04/10/2023 HEART CATHETERIZATION 09/17/2016 PAST SURGICAL HISTORY OF 2017 Aneurysm and stent surgery related to stroke TRACHEOSTOMY HX FAMILY HISTORY Problem Relation Age of Onset Heart Mother [place] in her 70s, pacemaker Diabetes Mother Stroke Father other (AAA) Father other (CAD) Brother Hypertension Brother SOCIAL HISTORY: -Lives in [place], [place] -Patient lives alone? No -Vocation: -Education: -Cigarette, alcohol, substance use: none -Functional status: dependent for all activities of daily living -Patient driving? No Review of Systems Unable to perform ROS: Other (patient not present - in nursing facility) VITAL SIGNS: There were no vitals taken for this visit. General Examination: Exam deferred - virtual visit Patient unavailable to attend visit due to in nursing facility IMPRESSION: 69 year old man with history of left hemispheric stroke with residual right hemiparesis and aphasia with reported dialeptic episodes, are concerning for epileptic seizures. Semiology: Dialepsis EEG ([facility]): Left temporal SW Co-morbidities: Stroke in setting of left carotid artery occlusion with residual right sided hemiplegia and aphasia, atrial fibrillation, CABG x 5, DARON, emphysema, PVD. He is currently stable on Lyrica 50 mg BID with no reported seizures or side effects. PLAN: - Continue Lyrica 50 mg BID - Lyrica level prior to next visit - Follow up in 6 months - If seizures, were to recur, consider EMU / ambulatory / home video EEG for characterization and further management Data reviewed as above including: electronic medical record Education The following issues were discussed with the patient on this visit and written instructions provided as below- Seizure precautions and safety, seizure first aide, when to seek emergency care. Counseling was provided to the patient that missed medications, addition of some new medications, use of alcohol or other substances, and sleep deprivation can lower the seizure threshold. Patient was advised to not drive until released by a physician. I discussed the risk of depression and psychological comorbidities in patients with epilepsy and when to seek help as well as all anti-seizure medication level medications which can increase risk for suicidality. Patient was given my clinic contact information. Medical Management Continue current medications. Prescriptions not needed at this time. I discussed the risks, benefits and alternatives of the medical plan with the patient. Questions were answered. The patient agreed with the plan as discussed. FOLLOW-UP: No follow-ups on file. I spent a total of 30 minutes on the date of the service which included: [id number] patient care obtaining and/or reviewing separately obtained history counseling and educating the patient/family/caregiver ordering medications, tests, or procedures Joycelyn Woodruff MD cc: Primary Care Physician: Jaci Arroyo MD [address] [facility] [address] Referring: Patient: Mr. Afshin Zee [address] [facility] [address] documented in this encounter [facility] 12-31-2024 Note HNO ID: [id number] Author: JOYCELYN WOODRUFF MD Service: ? Author Type: Fellow Type: Progress Notes Filed: 01/01/2025 11:44 Note Text: [facility] Patient Name: Afshin Zee Date of : 1955 ESTABLISHED EPILEPSY CLINIC NOTE 12/31/2024 1:30 PM Reason for Visit: Follow Up and Seizures Clinical Summary: Mr. Zee is a 69 year old now left handed (since stroke) male seen in [facility]. Focal Epilepsy (Localization Undetermined) Seizures: 1. 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 He requires assistance with activities of daily living. Patient has right sided weakness (UE > LE) and expressive > receptive aphasia since the stroke. Patient established care with a neurologist in May 2024. At the time, per chart review patient's had reported episodes of staring where he would be responsive when called. The neurologist had ordered an EEG which revealed left temporal sharp waves max at F7-T7. He was placed on levetiracetam 500 mg twice daily. Subsequently, he was admitted to the hospital and diagnosed with pneumonia. There was an episode prior to hospital admission reported as staring off with no response to stimuli when prompted by . While in the hospital, he reported had a number of confusional episodes. He underwent repeat imaging and EEG in the hospital which was reportedly unrevealing and not epileptiform. He was then discharged from hospital. There were concerns about mood side effects from Levetiracetam (LEV) and he was placed on valproate (VPA) which led to fatigability and they self discontinued the medication. He is currently on no ASMs. He was recommended to try clobazam (CLB) but never tried it. After discussion, he was started on Lyrica 75 mg twice daily. Interval Seizure History Patient's and nursing aide at the facility are present for the visit. He is not available to be in the visit. He has having several falls since last visit. They reduced (self reduced) Lyrica to 50 mg BID from 75 mg BID. He has remained stable since and has not had any seizures. He also has not had any falls - nursing aide reports he is removed from the 'high risk for falls' category. They deny any transient neurological symptoms concerning for seizures. They deny episodes of blood on pillow of involuntary movements. He has a routine in the facility and does therapy. They do not report any concerns today. Total # of Current Anti-seizure Medications: 1 Side Effects to Current Anti-seizure Medications: none Seizure Frequency at First Visit: 1 per 6 months Longest Seizure-free Interval: Number of seizure types: 1 Hx of generalized tonic-clonic seizures: No Tongue bite: No Urine or Bowel Incontinence: No Triggers: unknown Postictal Deficits: No Memory complaints: unknown Status Epilepticus or clusters: No Postictal Agitation: No Significant Injuries from Seizures: none Seizure-related driving accidents: No Driving: No Lives Alone: No ED Visits in Last 3 Months: No Hospitalizations in Last 3 Months: No CURRENT OUTPATIENT ANTISEIZURE MEDICATIONS (as of the start of the encounter) divalproex DR (DEPAKOTE) 125 mg EC tablet Take 125 mg by mouth two times a day. pregabalin (LYRICA) 50 mg capsule Take 1 capsule by mouth two times a day for 180 days. Prior Anti-seizure Therapies: Trial Adequacy: Max Daily Dose Achieved: Side Effects: Effectiveness: Comments: Gabapentin, other use Levetiracetam 1000 Psychiatric Pregabalin Valproate Systemic Comorbidities: Major: Cerebrovascular accident Cerebrovascular accident: Ischemic Minor: Obstructive Sleep Apnea, Hemiparesis, Hypertension Episode Description: SEIZURE TYPE 1: Staring Onset: May 2024? Aura: not sure Description: Staring off with no response to stimuli Unknown duration or frequency. Loss of awareness: Duration: Frequency: Last occurred: yes Patient Entered Data: EPILEPSY SCORE 12/31/2024 12:33 PM 12/31/2024 12:33 PM 12/31/2024 12:31 PM First answer obtained - 05/29/2024 3:37 PM PHQ-9 SCORE - - 7 [Mild Depression] 14 [Moderate Depression] JESS 2 SCORE - - - - JESS 7 SCORE - - - - QOLIE-10 SCORE (0=worst; 100=best QoL - higher score (more content not included)... [facility] 12-26-2024 Telephone encounter Note [facility] sent fax asking for Medical Records on pt. Date of service needed is 07/30/24 regarding his incontinence. I do not see that pt was seen in office that day. Please review. Roxanne fax # [phone] Monica Cruz MA [facility] 12-03-2024 Note HNO ID: [id number] Author: CONSUELO FAROOQ APRN.OPERATIONS LABEL CLERK Service: ? Author Type: Nurse Practitioner Type: Progress Notes Filed: 12/03/2024 13:02 Note Text: Chief Complaint Patient presents with: Cough Wheezing HPI Afshin Zee is a 69 year old male who presents here today for Above Complaints.. Patient presents for cough and wheezing for 3-4 days. Past medical history, appointments, medications, allergies reviewed. Previous Medical History PAST MEDICAL HISTORY Diagnosis Date Acute cerebral infarction (HCC) left LEANN (acute kidney injury) Anemia Aneurysm Anxiety state Atrial fibrillation (HCC) 11/2016 Balanitis CAD (coronary artery disease) Carotid stenosis COPD (chronic obstructive pulmonary disease) (HCC) Dysphasia Emphysema lung (HCC) Epilepsy (HCC) History of blood transfusion 03/2023 Hypertension Hypoxia 03/2023 DARON (obstructive sleep apnea) PVD (peripheral vascular disease) Respiratory failure (HCC) hypoxic-ventilator dependent Stroke (cerebrum) (HCC) Tobacco abuse Previous Surgical History PAST SURGICAL HISTORY Procedure Laterality Date ANKLE SURGERY HX Right 08/07/2023 Dr. Kim. Right ankle ORIF due to fracture CABG CONSULT 10/30/2016 multi vessel COLONOSCOPY SCREENING 04/10/2023 EGD W/O RUST SPEC VARICIES INJ 04/11/2023 EGD W/O BRS SPEC VARICIES INJ 04/10/2023 HEART CATHETERIZATION 09/17/2016 PAST SURGICAL HISTORY OF 2017 Aneurysm and stent surgery related to stroke TRACHEOSTOMY HX Family History FAMILY HISTORY Problem Relation Age of Onset Heart Mother CO in her 70s, pacemaker Diabetes Mother Stroke Father other (AAA) Father other (CAD) Brother Hypertension Brother Patient Allergies ALLERGIES Allergen Reactions Lisinopril Swelling, Angioedema Lip swelling after starting lisinopril. Doxycycline GI Upset, Other: See Comments GI upset (stomach ache/cramping/diarrhea) and splotchy face Sulfa (Sulfonamide * Hives Zpak [Azithromycin] Hives Current Medications Current Outpatient Medications on File Prior to Visit Medication Sig divalproex DR (DEPAKOTE) 125 mg EC tablet Take 125 mg by mouth two times a day. furosemide (LASIX) 20 mg tablet Take 20 mg by mouth once daily. pregabalin (LYRICA) 50 mg capsule Take 1 capsule by mouth two times a day for 180 days. Leg Brace misc 1 Each as directed. RIGHT LEG BRACE (AFO TYPE) SPIRIVA RESPIMAT 2.5 mcg/actuation inhaler Inhale 2 Puffs as instructed once daily. (Patient not taking: Reported on 11/10/2024) rbpetqzhdjp-ggfmuqvaw-jpwjjpbl (TRELEGY ELLIPTA) 100-62.5-25 mcg inhalation powder Inhale 1 Puff as instructed once daily. metoprolol tartrate, short acting, (LOPRESSOR) 25 mg tablet Take 0.5 tablets by mouth two times a day. fluticasone (FLONASE) 50 mcg/actuation nasal spray Use 1 [place] in each nostril two times a day. Rinse mouth after use. losartan (COZAAR) 25 mg tablet Take 1 tablet by mouth once daily. baclofen 10 mg tablet Take 1 tablet by mouth three times a day. amLODIPine (NORVASC) 10 mg tablet Take 0.5 tablets by mouth two times a day. Take 1/2 tablet twice daily traZODone (DESYREL) 100 mg tablet Take 1 tablet by mouth daily at bedtime. albuterol HFA (PROVENTIL HFA, VENTOLIN HFA) 90 mcg/actuation inhaler INHALE 2 PUFFS INTO THE LUNGS EVERY 4 HOURS NEEDED multivitamin tablet Take 1 tablet by mouth once daily. famotidine (PEPCID) 20 mg tablet Take 20 mg by mouth once daily. hydroCHLOROthiazide 12.5 mg tablet Take 1 tablet by mouth every morning. (Patient not taking: Reported on 10/06/2024) clotrimazole-betamethasone (LOTRISONE) cream Apply to affected area two times a day. OXYGEN, HOME THERAPY, 4 L/min by Nasal Cannula route as directed. busPIRone (BUSPAR) 15 mg tablet take 1 tablet by mouth three times a day LORazepam (ATIVAN) 1 mg tablet Take 1-2 tablets by mouth three times a day as needed for anxiety for up to 45 days. Take 1-2 pills three times a day potassium chloride (K-TAB) 10 mEq tablet Take 2 tablets by mouth three times a day. albuterol (PROVENTIL) 2.5 mg /3 mL (0.083 %) nebulizer solution INHALE 1 VIAL VIA NEBULIZER EVERY 4 HOURS NEEDED FOR WHEEZING/SHORTNESS OF BREATH. USE OVER 5-15 MINUTES clopidogrel (PLAVIX) 75 mg tablet Take 75 mg by mouth once daily. (Patient not taking: Reported on 10/06/2024) ezetimibe (ZETIA) 10 mg tablet Take 1 tablet by mouth once daily. ferrous sulfate (FEROSUL) 325 mg (65 mg iron) tablet Take 1 tablet by mouth two times a day. amiodarone (PACERONE) 100 mg tablet TAKE 1 TABLET BY MOUTH ONCE DAILY *DO NOT TAKE IF HEART RATE IS LESS THAN 40* atorvastatin (LIPITOR) 40 mg tablet take 1 tablet by mouth once daily escitalopram oxalate (LEXAPRO) 20 mg tablet take 1 tablet by mouth once daily apixaban (ELIQUIS) 5 mg tab(s) take 1 tablet by mouth twice daily acetaminophen (TYLENOL EXTRA STRENGTH) 500 mg tablet Take 2 tablets by mouth three times a day as needed for pain. (Patient not (more content not included)... [facility] 12-03-2024 History of Presen t illness Narrative Chief Complaint Patient presents with: Cough Wheezing HPI Afshin Zee is a 69 year old male who presents here today for Above Complaints.. Patient presents for cough and wheezing for 3-4 days. Past medical history, appointments, medications, allergies reviewed. Previous Medical History PAST MEDICAL HISTORY Diagnosis Date Acute cerebral infarction (HCC) left LEANN (acute kidney injury) Anemia Aneurysm Anxiety state Atrial fibrillation (HCC) 11/2016 Balanitis CAD (coronary artery disease) Carotid stenosis COPD (chronic obstructive pulmonary disease) (HCC) Dysphasia Emphysema lung (HCC) Epilepsy (HCC) History of blood transfusion 03/2023 Hypertension Hypoxia 03/2023 DARON (obstructive sleep apnea) PVD (peripheral vascular disease) Respiratory failure (HCC) hypoxic-ventilator dependent Stroke (cerebrum) (HCC) Tobacco abuse Previous Surgical History PAST SURGICAL HISTORY Procedure Laterality Date ANKLE SURGERY HX Right 08/07/2023 Dr. Kim. Right ankle ORIF due to fracture CABG CONSULT 10/30/2016 multi vessel COLONOSCOPY SCREENING 04/10/2023 EGD W/O RUST SPEC VARICIES INJ 04/11/2023 EGD W/O RUST SPEC VARICIES INJ 04/10/2023 HEART CATHETERIZATION 09/17/2016 PAST SURGICAL HISTORY OF 2017 Aneurysm and stent surgery related to stroke TRACHEOSTOMY HX Family History FAMILY HISTORY Problem Relation Age of Onset Heart Mother CO in her 70s, pacemaker Diabetes Mother Stroke Father other (AAA) Father other (CAD) Brother Hypertension Brother Patient Allergies ALLERGIES Allergen Reactions Lisinopril Swelling, Angioedema Lip swelling after starting lisinopril. Doxycycline GI Upset, Other: See Comments GI upset (stomach ache/cramping/diarrhea) and splotchy face Sulfa (Sulfonamide * Hives Zpak [Azithromycin] Hives Current Medications Current Outpatient Medications on File Prior to Visit Medication Sig divalproex DR (DEPAKOTE) 125 mg EC tablet Take 125 mg by mouth two times a day. furosemide (LASIX) 20 mg tablet Take 20 mg by mouth once daily. pregabalin (LYRICA) 50 mg capsule Take 1 capsule by mouth two times a day for 180 days. Leg Brace misc 1 Each as directed. RIGHT LEG BRACE (AFO TYPE) SPIRIVA RESPIMAT 2.5 mcg/actuation inhaler Inhale 2 Puffs as instructed once daily. (Patient not taking: Reported on 11/10/2024) hwovdhcyilf-lanneylmc-xphyndjb (TRELEGY ELLIPTA) 100-62.5-25 mcg inhalation powder Inhale 1 Puff as instructed once daily. metoprolol tartrate, short acting, (LOPRESSOR) 25 mg tablet Take 0.5 tablets by mouth two times a day. fluticasone (FLONASE) 50 mcg/actuation nasal spray Use 1 [place] in each nostril two times a day. Rinse mouth after use. losartan (COZAAR) 25 mg tablet Take 1 tablet by mouth once daily. baclofen 10 mg tablet Take 1 tablet by mouth three times a day. amLODIPine (NORVASC) 10 mg tablet Take 0.5 tablets by mouth two times a day. Take 1/2 tablet twice daily traZODone (DESYREL) 100 mg tablet Take 1 tablet by mouth daily at bedtime. albuterol HFA (PROVENTIL HFA, VENTOLIN HFA) 90 mcg/actuation inhaler INHALE 2 PUFFS INTO THE LUNGS EVERY 4 HOURS NEEDED multivitamin tablet Take 1 tablet by mouth once daily. famotidine (PEPCID) 20 mg tablet Take 20 mg by mouth once daily. hydroCHLOROthiazide 12.5 mg tablet Take 1 tablet by mouth every morning. (Patient not taking: Reported on 10/06/2024) clotrimazole-betamethasone (LOTRISONE) cream Apply to affected area two times a day. OXYGEN, HOME THERAPY, 4 L/min by Nasal Cannula route as directed. busPIRone (BUSPAR) 15 mg tablet take 1 tablet by mouth three times a day LORazepam (ATIVAN) 1 mg tablet Take 1-2 tablets by mouth three times a day as needed for anxiety for up to 45 days. Take 1-2 pills three times a day potassium chloride (K-TAB) 10 mEq tablet Take 2 tablets by mouth three times a day. albuterol (PROVENTIL) 2.5 mg /3 mL (0.083 %) nebulizer solution INHALE 1 VIAL VIA NEBULIZER EVERY 4 HOURS NEEDED FOR WHEEZING/SHORTNESS OF BREATH. USE OVER 5-15 MINUTES clopidogrel (PLAVIX) 75 mg tablet Take 75 mg by mouth once daily. (Patient not taking: Reported on 10/06/2024) ezetimibe (ZETIA) 10 mg tablet Take 1 tablet by mouth once daily. ferrous sulfate (FEROSUL) 325 mg (65 mg iron) tablet Take 1 tablet by mouth two times a day. amiodarone (PACERONE) 100 mg tablet TAKE 1 TABLET BY MOUTH ONCE DAILY *DO NOT TAKE IF HEART RATE IS LESS THAN 40* atorvastatin (LIPITOR) 40 mg tablet take 1 tablet by mouth once daily escitalopram oxalate (LEXAPRO) 20 mg tablet take 1 tablet by mouth once daily apixaban (ELIQUIS) 5 mg tab(s) take 1 tablet by mouth twice daily acetaminophen (TYLENOL EXTRA STRENGTH) 500 mg tablet Take 2 tablets by mouth three times a day as needed for pain. (Patient not taking: Reported on 10/07/2024) Blood Pressure Monitor kit 1 application twice daily. Measure patient for correct size. Patient needs cuff for left arm readings. COMPOUNDED PRESCRIPTION Articulating AFO foot brace for right leg. Send to [employer]. Dx: I63.9 COMPOUNDED PRESCRIPTION EMBER WALKER DX I63.9 weight 162 # No current facility-administered medications on file prior to visit. Social History Social History Tobacco Use Smoking status: Former Current packs/day: 0.00 Average packs/day: 2.0 packs/day for 45.0 years (90.0 ttl pk-yrs) Types: Cigarettes Start date: 07/08/1971 Quit date: 07/08/2016 Years since quittin.4 Smokeless tobacco: Never Tobacco comments: 07/08/2016 Vaping Use Vaping status: Never Used Substance Use Topics Alcohol use: No Drug use: Never Review of Symptoms REVIEW OF SYSTEMS SEE HPI EXAM: BP 121/54 Pulse (!) 59 Wt 88.5 kg (195 lb) SpO2 90% BMI 27.98 kg/m General Appearance: Well appearing, alert, in no acute distress, well-hydrated, well nourished. Lungs: Lungs clear to auscultation. No wheezing, rhonchi, rales.. Heart: RRR without murmur, gallop, or rubs. No ectopy. Health Maintenance List Abdominal Aortic Aneurysm Screening Never done Lung Cancer Screening Never done Shingrix Vaccine(1 of 2) Never done Covid-19 Vaccine() due on 07/21/2024 Advance Directive Discussion due on 08/05/2024 Depression Screening due on 12/30/2024 Hepatitis C Screening due on 12/30/2024 LDL Cholesterol due on 04/02/2025 Serum Creatinine due on 04/02/2025 Annual PCP Team Chronic Disease Visit due on 10/07/2025 BP Controlled (<130/80) due on 11/10/2025 Diabetes Screening due on 04/02/2027 Colorectal Cancer Screening due on 06/19/2028 Lipid Screening due on 04/02/2029 DTaP,Tdap,Td Vaccine(2 - Td or Tdap) due on 05/10/2031 Influenza Vaccine Completed RSV Vaccine Completed Pneumococcal Vaccine: 50+ Completed ASSESSMENT/PLAN: 1. Acute cough - ICD9: 786.2, ICD10: R05.1 -Suspect allergic as patient is otherwise asymptomatic. - CETIRIZINE 10 MG TABLET Consuelo Farooq APRN.OPERATIONS LABEL CLERK documented in this encounter [facility] 12-03-2024 Telephone encounter Note Patient's Eli calling in. Reports patient is home and has had a deep cough and sinus congestion x 1 week. Possible wheezing/rattling. She is requesting pt be evaluated today, if possible. Reports pt has COPD and is more prone to respiratory infections. Denies pt having fever, N/V/D, chest pain or SOB. Offered available slots for today and is particular about who she wants pt to see. Appt made for pt today. Amaya Kessler RN [facility] 12-03-2024 Miscellaneous Notes Patient's Eli calling in. Reports patient is home and has had a deep cough and sinus congestion x 1 week. Possible wheezing/rattling. She is requesting pt be evaluated today, if possible. Reports pt has COPD and is more prone to respiratory infections. Denies pt having fever, N/V/D, chest pain or SOB. Offered available slots for today and is particular about who she wants pt to see. Appt made for pt today. Amaya Kessler RN documented in this encounter [facility] 12-02-2024 Telephone encounter Note Cathy from [facility] calls and reports that [facility] [place] [facility] placement. Jayde Laughlin RN [facility] 12-02-2024 Miscellaneous Notes Cathy from [facility] calls and reports that patient will be going [facility] [place] for permanent placement. Jayde Laughlin RN documented in this encounter [facility] 11-28-2024 Telephone encounter Note Will need Rx sent to DME [facility] 11-28-2024 Miscellaneous Notes Will need Rx sent to DME Any PA would come from the DME company, not the office the [employer] has the codes that insurance would need, not the office. Jacky Nathanielvijay- phoned in with , Eli, on another line. Reports pt needs pcp to do PA on Power Wheel Chair with gears on the left side. Pt is only able to use his left side due to stroke. Reports patient is now wheel chair bound and is living permanent at [facility] in [place]. Please fax PA to attn: [employer], [employer] [place]. . Plan ID # [id number]. Medicaid # [id number]. Phone # for [facility]: [phone] It will take 14 calendar days for PA to get approved. Pt weighs 197# and is 5'10 tall. DME's to send order to: [employer]. . In [place], [place] Or: [employer] has 3 locations: all in [place]: 2 in [place]. Or: 1 in [place]. These DME's will ship the power wheelchair to [facility]. documented in this encounter [facility] 11-27-2024 Telephone encounter Note Any PA would come from the DME company, not the office the DME company has the codes that insurance would need, not the office. [facility] 11-27-2024 Telephone encounter Note Jacky Tom- phoned in with , Eli, on another line. Reports pt needs pcp to do PA on Power Wheel Chair with gears on the left side. Pt is only able to use his left side due to stroke. Reports patient is now wheel chair bound and is living permanent at [facility] in [place]. Please fax PA to attn: [employer], [facility]. . Plan ID # [id number]. Medicaid # [id number]. Phone # for [facility]: [phone] It will take 14 calendar days for PA to get approved. Pt weighs 197# and is 5'10 tall. DME's to send order to: [employer]. . In [place], [place] Or: [employer] has 3 locations: all in [place]: 2 in [place]. Or: 1 in [place]. These DME's will ship the power wheelchair to [facility]. [facility] 11-10-2024 Instructions Deanne Cruz DO - 11/10/2024 5:10 PM EDT Reviewed ultrasound findings- no significant change Your stent is working No new carotid artery or vertebral artery blockages Plan to follow up in one year with repeat ultrasound No changes in medications documented in this encounter [facility] 11-10-2024 History of Presen t illness Narrative Images from the original note were not included. Heart , Vascular and Thoracic [place] DEPARTMENT OF VASCULAR SURGERY OUTPATIENT VISIT TYPE ESTABLISHED PRIMARY CARE PHYSICIAN: Jaci Arroyo MD HISTORY OF PRESENT ILLNESS: Mr. Zee is a 69 year old male who presents today for a vascular surgery follow-up visit for carotid artery duplex. He is currently in a nursing facility. No new focal deficits. He has aphasia from previous stroke PAST MEDICAL HISTORY Diagnosis Date Acute cerebral infarction (HCC) left LEANN (acute kidney injury) Anemia Aneurysm Anxiety state Atrial fibrillation (HCC) 11/2016 Balanitis CAD (coronary artery disease) Carotid stenosis COPD (chronic obstructive pulmonary disease) (HCC) Dysphasia Emphysema lung (HCC) Epilepsy (HCC) History of blood transfusion 03/2023 Hypertension Hypoxia 03/2023 DARON (obstructive sleep apnea) PVD (peripheral vascular disease) Respiratory failure (HCC) hypoxic-ventilator dependent Stroke (cerebrum) (HCC) Tobacco abuse PAST SURGICAL HISTORY Procedure Laterality Date ANKLE SURGERY HX Right 08/07/2023 Dr. Kim. Right ankle ORIF due to fracture CABG CONSULT 10/30/2016 multi vessel COLONOSCOPY SCREENING 04/10/2023 EGD W/O RUST SPEC VARICIES INJ 04/11/2023 EGD W/O RUST SPEC VARICIES INJ 04/10/2023 HEART CATHETERIZATION 09/17/2016 PAST SURGICAL HISTORY OF 2017 Aneurysm and stent surgery related to stroke TRACHEOSTOMY HX SOCIAL HISTORY Social History Tobacco Use Smoking status: Former Current packs/day: 0.00 Average packs/day: 2.0 packs/day for 45.0 years (90.0 ttl pk-yrs) Types: Cigarettes Start date: 07/08/1971 Quit date: 07/08/2016 Years since quittin.3 Smokeless tobacco: Never Tobacco comments: 07/08/2016 Vaping Use Vaping status: Never Used Substance Use Topics Alcohol use: No Drug use: Never MEDICATIONS: divalproex DR (DEPAKOTE) 125 mg EC tablet Take 125 mg by mouth two times a day. furosemide (LASIX) 20 mg tablet Take 20 mg by mouth once daily. pregabalin (LYRICA) 50 mg capsule Take 1 capsule by mouth two times a day for 180 days. hlytqdokagb-trlipntco-nwrgivfb (TRELEGY ELLIPTA) 100-62.5-25 mcg inhalation powder Inhale 1 Puff as instructed once daily. metoprolol tartrate, short acting, (LOPRESSOR) 25 mg tablet Take 0.5 tablets by mouth two times a day. fluticasone (FLONASE) 50 mcg/actuation nasal spray Use 1 [place] in each nostril two times a day. Rinse mouth after use. losartan (COZAAR) 25 mg tablet Take 1 tablet by mouth once daily. baclofen 10 mg tablet Take 1 tablet by mouth three times a day. amLODIPine (NORVASC) 10 mg tablet Take 0.5 tablets by mouth two times a day. Take 1/2 tablet twice daily traZODone (DESYREL) 100 mg tablet Take 1 tablet by mouth daily at bedtime. albuterol HFA (PROVENTIL HFA, VENTOLIN HFA) 90 mcg/actuation inhaler INHALE 2 PUFFS INTO THE LUNGS EVERY 4 HOURS NEEDED multivitamin tablet Take 1 tablet by mouth once daily. famotidine (PEPCID) 20 mg tablet Take 20 mg by mouth once daily. busPIRone (BUSPAR) 15 mg tablet take 1 tablet by mouth three times a day potassium chloride (K-TAB) 10 mEq tablet Take 2 tablets by mouth three times a day. albuterol (PROVENTIL) 2.5 mg /3 mL (0.083 %) nebulizer solution INHALE 1 VIAL VIA NEBULIZER EVERY 4 HOURS NEEDED FOR WHEEZING/SHORTNESS OF BREATH. USE OVER 5-15 MINUTES ezetimibe (ZETIA) 10 mg tablet Take 1 tablet by mouth once daily. amiodarone (PACERONE) 100 mg tablet TAKE 1 TABLET BY MOUTH ONCE DAILY *DO NOT TAKE IF HEART RATE IS LESS THAN 40* atorvastatin (LIPITOR) 40 mg tablet take 1 tablet by mouth once daily escitalopram oxalate (LEXAPRO) 20 mg tablet take 1 tablet by mouth once daily apixaban (ELIQUIS) 5 mg tab(s) take 1 tablet by mouth twice daily Blood Pressure Monitor kit 1 application twice daily. Measure patient for correct size. Patient needs cuff for left arm readings. Leg Brace misc 1 Each as directed. RIGHT LEG BRACE (AFO TYPE) SPIRIVA RESPIMAT 2.5 mcg/actuation inhaler Inhale 2 Puffs as instructed once daily. (Patient not taking: Reported on 11/10/2024) hydroCHLOROthiazide 12.5 mg tablet Take 1 tablet by mouth every morning. (Patient not taking: Reported on 10/06/2024) clotrimazole-betamethasone (LOTRISONE) cream Apply to affected area two times a day. OXYGEN, HOME THERAPY, 4 L/min by Nasal Cannula route as directed. LORazepam (ATIVAN) 1 mg tablet Take 1-2 tablets by mouth three times a day as needed for anxiety for up to 45 days. Take 1-2 pills three times a day clopidogrel (PLAVIX) 75 mg tablet Take 75 mg by mouth once daily. (Patient not taking: Reported on 10/06/2024) ferrous sulfate (FEROSUL) 325 mg (65 mg iron) tablet Take 1 tablet by mouth two times a day. acetaminophen (TYLENOL EXTRA STRENGTH) 500 mg tablet Take 2 tablets by mouth three times a day as needed for pain. (Patient not taking: Reported on 10/07/2024) COMPOUNDED PRESCRIPTION Articulating AFO foot brace for right leg. Send to [facility]. Dx: I63.9 COMPOUNDED PRESCRIPTION EMBER WALKER DX I63.9 weight 162 # ALLERGIES: ALLERGIES Allergen Reactions Lisinopril Swelling, Angioedema Lip swelling after starting lisinopril. Doxycycline GI Upset, Other: See Comments GI upset (stomach ache/cramping/diarrhea) and splotchy face Sulfa (Sulfonamide * Hives Zpak [Azithromycin] Hives PHYSICAL EXAM: BP 121/67 (BP Site: Left Arm, BP Position: Sitting, BP Cuff Size: Regular Adult) Pulse (!) 50 SpO2 92% Gen- no distress, aphasia Ext- palpable radial pulses Diagnostic tests reviewed for today's visit: Most recent labs Most recent imaging Carotid Duplex When compared with the prior study, of 07/17/2023 no significant change is noted on the right side and no significant change is noted on the left side. RIGHT SIDE Common carotid artery: Plaque visualized without evidence of hemodynamically significant stenosis. Internal carotid artery: <50% stenosis consistent with mild carotid artery disease. Tortuous vessel at distal . Findings may be overestimated due to contralateral occlusion . Vertebral artery: Patent and antegrade flow noted. Subclavian artery: Turbulent flow noted, cannot rule out more proximal subclavian artery stenosis. May wish other means of evaluation. LEFT SIDE Common carotid artery: Plaque visualized without evidence of hemodynamically significant stenosis. Internal carotid artery: Total occlusion. Vertebral artery: Patent and antegrade flow noted. Subclavian artery: Turbulent flow noted, cannot rule out more proximal subclavian artery stenosis. May wish other means of evaluation. Patient has history of proximal subclavian artery stent. Unable to adequately visualize stent. IMPRESSION: Mr. Zee is a 69 year old male with carotid artery stenosis, subclavian stenosis s/p stenting, left carotid occlusion . PLAN and RECOMMENDATIONS: Continue current non-interventional therapy Continue current medications Follow up in one year with carotid duplex Remains stable SIGNATURE: Deanne Cruz DO PATIENT NAME: Afshin Zee DATE: November 20, 2024 TIME: 11:27 AM documented in this encounter [facility] 11-10-2024 Note HNO ID: [id number] Author: DEANNE CRUZ, DO Service: ? Author Type: Physician Type: Progress Notes Filed: 11/20/2024 12:55 Note Text: Heart , Vascular and Thoracic [place] DEPARTMENT OF VASCULAR SURGERY OUTPATIENT VISIT TYPE ESTABLISHED PRIMARY CARE PHYSICIAN: Jaci Arroyo MD HISTORY OF PRESENT ILLNESS: Mr. Zee is a 69 year old male who presents today for a vascular surgery follow-up visit for carotid artery duplex. He is currently in a nursing facility. No new focal deficits. He has aphasia from previous stroke PAST MEDICAL HISTORY Diagnosis Date Acute cerebral infarction (HCC) left LEANN (acute kidney injury) Anemia Aneurysm Anxiety state Atrial fibrillation (HCC) 11/2016 Balanitis CAD (coronary artery disease) Carotid stenosis COPD (chronic obstructive pulmonary disease) (HCC) Dysphasia Emphysema lung (HCC) Epilepsy (HCC) History of blood transfusion 03/2023 Hypertension Hypoxia 03/2023 DARON (obstructive sleep apnea) PVD (peripheral vascular disease) Respiratory failure ([facility]) hypoxic-ventilator dependent Stroke (cerebrum) ([facility]) Tobacco abuse PAST SURGICAL HISTORY Procedure Laterality Date ANKLE SURGERY HX Right 08/07/2023 Dr. Kim. Right ankle ORIF due to fracture CABG CONSULT 10/30/2016 multi vessel COLONOSCOPY SCREENING 04/10/2023 EGD W/O RUST SPEC VARICIES INJ 04/11/2023 EGD W/O BRS SPEC VARICIES INJ 04/10/2023 HEART CATHETERIZATION 09/17/2016 PAST SURGICAL HISTORY OF 2017 Aneurysm and stent surgery related to stroke TRACHEOSTOMY HX SOCIAL HISTORY Social History Tobacco Use Smoking status: Former Current packs/day: 0.00 Average packs/day: 2.0 packs/day for 45.0 years (90.0 ttl pk-yrs) Types: Cigarettes Start date: 07/08/1971 Quit date: 07/08/2016 Years since quittin.3 Smokeless tobacco: Never Tobacco comments: 07/08/2016 Vaping Use Vaping status: Never Used Substance Use Topics Alcohol use: No Drug use: Never MEDICATIONS: divalproex DR (DEPAKOTE) 125 mg EC tablet Take 125 mg by mouth two times a day. furosemide (LASIX) 20 mg tablet Take 20 mg by mouth once daily. pregabalin (LYRICA) 50 mg capsule Take 1 capsule by mouth two times a day for 180 days. qtjtzhblzcf-swdjovfoz-rwqzulxg (TRELEGY ELLIPTA) 100-62.5-25 mcg inhalation powder Inhale 1 Puff as instructed once daily. metoprolol tartrate, short acting, (LOPRESSOR) 25 mg tablet Take 0.5 tablets by mouth two times a day. fluticasone (FLONASE) 50 mcg/actuation nasal spray Use 1 [place] in each nostril two times a day. Rinse mouth after use. losartan (COZAAR) 25 mg tablet Take 1 tablet by mouth once daily. baclofen 10 mg tablet Take 1 tablet by mouth three times a day. amLODIPine (NORVASC) 10 mg tablet Take 0.5 tablets by mouth two times a day. Take 1/2 tablet twice daily traZODone (DESYREL) 100 mg tablet Take 1 tablet by mouth daily at bedtime. albuterol HFA (PROVENTIL HFA, VENTOLIN HFA) 90 mcg/actuation inhaler INHALE 2 PUFFS INTO THE LUNGS EVERY 4 HOURS NEEDED multivitamin tablet Take 1 tablet by mouth once daily. famotidine (PEPCID) 20 mg tablet Take 20 mg by mouth once daily. busPIRone (BUSPAR) 15 mg tablet take 1 tablet by mouth three times a day potassium chloride (K-TAB) 10 mEq tablet Take 2 tablets by mouth three times a day. albuterol (PROVENTIL) 2.5 mg /3 mL (0.083 %) nebulizer solution INHALE 1 VIAL VIA NEBULIZER EVERY 4 HOURS NEEDED FOR WHEEZING/SHORTNESS OF BREATH. USE OVER 5-15 MINUTES ezetimibe (ZETIA) 10 mg tablet Take 1 tablet by mouth once daily. amiodarone (PACERONE) 100 mg tablet TAKE 1 TABLET BY MOUTH ONCE DAILY *DO NOT TAKE IF HEART RATE IS LESS THAN 40* atorvastatin (LIPITOR) 40 mg tablet take 1 tablet by mouth once daily escitalopram oxalate (LEXAPRO) 20 mg tablet take 1 tablet by mouth once daily apixaban (ELIQUIS) 5 mg tab(s) take 1 tablet by mouth twice daily Blood Pressure Monitor kit 1 application twice daily. Measure patient for correct size. Patient needs cuff for left arm readings. Leg Brace misc 1 Each as directed. RIGHT LEG BRACE (AFO TYPE) SPIRIVA RESPIMAT 2.5 mcg/actuation inhaler Inhale 2 Puffs as instructed once daily. (Patient not taking: Reported on 11/10/2024) hydroCHLOROthiazide 12.5 mg tablet Take 1 tablet by mouth every morning. (Patient not taking: Reported on 10/06/2024) clotrimazole-betamethasone (LOTRISONE) cream Apply to affected area two times a day. OXYGEN, HOME THERAPY, 4 L/min by Nasal Cannula route as directed. LORazepam (ATIVAN) 1 mg tablet Take 1-2 tablets by mouth three times a day as needed for anxiety for up to 45 days. Take 1-2 pills three times a day clopidogrel (PLAVIX) 75 mg tablet Take 75 mg by mouth once daily. (Patient not taking: Reported on 10/06/2024) ferrous sulfate (FEROSUL) 325 mg (65 mg iron) tablet Take 1 tablet by mouth two times a day. acetaminophen (TYLENOL EXTRA STRENGTH) 500 mg tablet Take 2 tablets by mouth three times (more content not included)... [facility] 10-22-2024 Telephone encounter Note Noted, thank you! [facility] 10-22-2024 Miscellaneous Notes Noted, thank you! Patient's calling and states her has recently been admitted to the group home. States his oxygen levels have been good and not needing his oxygen at night. Spoke with his nurse Ricardo CALDWELL is going to get an update from Dr. Warren and call back with that update. documented in this encounter [facility] 10-22-2024 Telephone encounter Note Patient's calling and states her has recently been admitted to the group home. States his oxygen levels have been good and not needing his oxygen at night. Spoke with his nurse Ricardo CALDWELL is going to get an update from Dr. Warren and call back with that update. [facility] 10-22-2024 Telephone encounter Note Results received from [facility] [place] and scanned to chart. Patient with continued desaturations below 88% for >50minutes on 4L. Detailed message left on voicemail for patient and spouse to continue 6LPM Deanne Neville LPN [facility] 10-22-2024 Miscellaneous Notes Results received from [facility] [place] and scanned to chart. Patient with continued desaturations below 88% for >50minutes on 4L. Detailed message left on voicemail for patient and spouse to continue 6LPM Deanne Neville LPN Fax returned to [facility] [place]. Deanne Neville LPN Spoke with Renetta at [facility] [place]. Kelton is needing a dx code for upload. Fax received for OPERATIONS LABEL CLERK signature. On provider's desk for review. Deanne Neville LPN Patient's calling and states had the nighttime oxygen testing done and asking if the office has received any results? documented in this encounter [facility] 10-21-2024 Telephone encounter Note Fax returned to [facility] [place]. Deanne Neville LPN [facility] 10-21-2024 Telephone encounter Note Spoke with Renetta at [facility] [place]. Kelton is needing a dx code for upload. Fax received for OPERATIONS LABEL CLERK signature. On provider's desk for review. Deanne Neville LPN [facility] 10-20-2024 Telephone encounter Note Patient's calling and states had the nighttime oxygen testing done and asking if the office has received any results? [facility] 10-16-2024 Telephone encounter Note I spoke with Eli, she agreed with recommendations. Mildred Adame RN [facility] 10-16-2024 Miscellaneous Notes I spoke with Eli, she agreed with recommendations. Mildred Adame RN Okay to continue Lyrica 50mg twice daily but if seizure reoccur we will have to change to alternative anti-seizure medication The following approved medication requests have been transmitted electronically. Requested Prescriptions Signed Prescriptions Disp Refills pregabalin (LYRICA) 50 mg capsule 180 capsule 1 Sig: Take 1 capsule by mouth two times a day for 180 days. Authorizing Provider: NAYELI YOUNG PA-C I spoke with , who stated Afshin continues to have frequent falls due to Lyrica 75/75 Patient was admitted [facility] due to a fall. [place] [facility] [place] stated he did not experience falls when Lyrica was 50/50 Mrs. Zee asks to be given a script for Lyrica 50 mg BID. If approved, send to [facility] in [place], [place] [phone]. Mildred Adame RN Medication Concern Person Calling Eli Zee, Name of medication Lyrica 75 mg Concern with medication Mrs. Zee lowered the dose herself d/t frequent falls. Patient is being discharged and going to [facility] [place] [place]. Mrs. Zee asks to be given a script for Lyrica 50 mg BID. If approved, send to [facility] in [place], [place] [phone]. Patient of Dr. Sparrow documented in this encounter [facility] 10-16-2024 Telephone encounter Note Okay to continue Lyrica 50mg twice daily but if seizure reoccur we will have to change to alternative anti-seizure medication The following approved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 Cerebrovascular accident Cerebrovascular accident: Ischemic Minor: Obstructive Sleep Apnea, Hemiparesis, Hypertension Episode Description: SEIZURE TYPE 1: Staring Onset: May 2024? Aura: not sure Description: Staring off with no response to stimuli Unknown duration or frequency. Loss of awareness: Duration: Frequency: Last occurred: yes Patient Entered Data: EPILEPSY SCORE 09/30/2024 1:36 PM 09/30/2024 1:35 PM 09/30/2024 1:35 PM First answer obtained - 05/29/2024 3:37 PM PHQ-9 SCORE - - - 14 [Moderate Depression] JESS 2 SCORE 4 [Positive Anxiety Screen] - - - JESS 7 SCORE 15 [Severe Anxiety Disorder] - - - QOLIE-10 SCORE (0=worst; 100=best QoL - higher scores represent better function) - - - - LSSS SCORE (0- no seizures 100- most severe possible seizures) - - - - C-SSRS SCREEN - - - - On average, how many hours of sleep do you get in a 24-hour period? - - - PROMIS Sleep Disturbance T-SCORE - - - - Have you been diagnosed with Sleep Apnea? 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 Patient should start on October 14, 2024. metoprolol tartrate, short acting, (LOPRESSOR) 25 mg tablet Take 0.5 tablets by mouth two times a day. fluticasone (FLONASE) 50 mcg/actuation nasal spray Use 1 [place] in each nostril two times a day. Rinse mouth after use. losartan (COZAAR) 25 mg tablet Take 1 tablet by mouth once daily. pregabalin (LYRICA) 25 mg capsule Take 25 mg at bedtime for 1 week followed by 25 mg twice daily for 1 week followed by 25 mg in the morning and 50 mg at bedtime for 1 week followed by 50 mg twice daily for 1 week followed by 50 mg in the morning and 75 mg at bedtime for 1 week followed by 75 mg twice daily. baclofen 10 mg tablet Take 1 tablet by mouth three times a day. amLODIPine (NORVASC) 10 mg tablet Take 0.5 tablets by mouth two times a day. Take 1/2 tablet twice daily traZODone (DESYREL) 100 mg tablet Take 1 tablet by mouth daily at bedtime. albuterol HFA (PROVENTIL HFA, VENTOLIN HFA) 90 mcg/actuation inhaler INHALE 2 PUFFS INTO THE LUNGS EVERY 4 HOURS NEEDED multivitamin tablet Take 1 tablet by mouth once daily. famotidine (PEPCID) 20 mg tablet Take 20 mg by mouth once daily. hydroCHLOROthiazide 12.5 mg tablet Take 1 tablet by mouth every morning. clotrimazole-betamethasone (LOTRISONE) cream Apply to affected area two times a day. OXYGEN, HOME THERAPY, 4 L/min by Nasal Cannula route as directed. busPIRone (BUSPAR) 15 mg tablet take 1 tablet by mouth three times a day STIOLTO RESPIMAT 2.5-2.5 mcg/actuation inhaler inhale 2 puffs by mouth as directed once daily LORazepam (ATIVAN) 1 mg tablet Take 1-2 tablets by mouth three times a day as needed for anxiety for up to 45 days. Take 1-2 pills three times a day potassium chloride (K-TAB) 10 mEq tablet Take 2 tablets by mouth three times a day. albuterol (PROVENTIL) 2.5 mg /3 mL (0.083 %) nebulizer solution INHALE 1 VIAL VIA NEBULIZER EVERY 4 HOURS NEEDED FOR WHEEZING/SHORTNESS OF BREATH. USE OVER 5-15 MINUTES clopidogrel (PLAVIX) 75 mg tablet Take 75 mg by mouth once daily. ezetimibe (ZETIA) 10 mg tablet Take 1 tablet by mouth once daily. ferrous sulfate (FEROSUL) 325 mg (65 mg iron) tablet Take 1 tablet by mouth two times a day. amiodarone (PACERONE) 100 mg tablet TAKE 1 TABLET BY MOUTH ONCE DAILY *DO NOT TAKE IF HEART RATE IS LESS THAN 40* atorvastatin (LIPITOR) 40 mg tablet take 1 tablet by mouth once daily escitalopram oxalate (LEXAPRO) 20 mg tablet take 1 tablet by mouth once daily apixaban (ELIQUIS) 5 mg tab(s) take 1 tablet by mouth twice daily acetaminophen (TYLENOL EXTRA STRENGTH) 500 mg tablet Take 2 tablets by mouth three times a day as needed for pain. Blood Pressure Monitor kit 1 application twice daily. Measure patient for correct size. Patient needs cuff for left arm readings. COMPOUNDED PRESCRIPTION Articulating AFO foot brace for right leg. Send to [employer]. Dx: I63.9 COMPOUNDED PRESCRIPTION EMBER WALKER DX I63.9 weight 162 # No current facility-administered medications for this visit. ALLERGIES Allergen Reactions Lisinopril Swelling, Angioedema Lip swelling after starting lisinopril. Doxycycline GI Upset, Other: See Comments GI upset (stomach ache/cramping/diarrhea) and splotchy face Sulfa (Sulfonamide * Hives Zpak [Azithromycin] Hives PAST MEDICAL HISTORY Diagnosis Date Acute cerebral infarction (HCC) left LEANN (acute kidney injury) (HCC) Anemia Aneurysm (HCC) Anxiety state Atrial fibrillation (HCC) 11/2016 Balanitis CAD (coronary artery disease) Carotid stenosis COPD (chronic obstructive pulmonary disease) (HCC) Dysphasia Emphysema lung (HCC) Epilepsy (HCC) History of blood transfusion 03/2023 Hypertension Hypoxia 03/2023 DARON (obstructive sleep apnea) PVD (peripheral vascular disease) (HCC) Respiratory failure (HCC) hypoxic-ventilator dependent Stroke (cerebrum) (HCC) Tobacco abuse PAST SURGICAL HISTORY Procedure Laterality Date ANKLE SURGERY HX Right 08/07/2023 Dr. Kim. Right ankle ORIF due to fracture CABG CONSULT 10/30/2016 multi vessel COLONOSCOPY SCREENING 04/10/2023 EGD W/O RUST SPEC VARICIES INJ 04/11/2023 EGD W/O BRS SPEC VARICIES INJ 04/10/2023 HEART CATHETERIZATION 09/17/2016 PAST SURGICAL HISTORY OF 2017 Aneurysm and stent surgery related to stroke TRACHEOSTOMY HX FAMILY HISTORY Problem Relation Age of Onset Heart Mother CO in her 70s, pacemaker Diabetes Mother Stroke Father other (AAA) Father other (CAD) Brother Hypertension Brother SOCIAL HISTORY: -Lives in [place], [place] -Patient lives alone? No -Vocation: -Education: -Cigarette, alcohol, substance use: none -Functional status: dependent for all activities of daily living -Patient driving? No Review of Systems Reason unable to perform ROS: reports no significant concerns. Constitutional: Negative. HENT: Negative. Eyes: Negative. Respiratory: Negative. Gastrointestinal: Negative. Genitourinary: Negative. Hematologic/Lymphatic: Negative. Allergic/Immunologic: Negative. Musculoskeletal: Negative. Skin: Negative. VITAL SIGNS: There were no vitals taken for this visit. General Examination: Deferred - patient was in rehab facility. 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 Semiology: Dialepsis EEG ([facility]): Left temporal SW Co-morbidities: Stroke in setting of left carotid artery occlusion with residual right sided hemiplegia and aphasia, atrial fibrillation, CABG x 5, DARON, emphysema, PVD Interval Impression: He continues to be on the titration schedule with no breakthrough seizures and no reported side effects. PLAN: - Continue titration of pregabalin with goal dose 75 mg twice daily - Discussed side effects of ASM - Discussed calling clinic with any concerns regarding breakthrough seizures/ASM - Patient does not drive - Follow up virtually in 3 months Data reviewed as above including: electronic medical record Education The following issues were discussed with the patient on this visit and written instructions provided as below- Seizure precautions and safety, seizure first aide, when to seek emergency care. Counseling was provided to the patient that missed medications, addition of some new medications, use of alcohol or other substances, and sleep deprivation can lower the seizure threshold. Patient was advised to not drive until released by a physician. I discussed the risk of depression and psychological comorbidities in patients with epilepsy and when to seek help as well as all anti-seizure medication level medications which can increase risk for suicidality. Patient was given my clinic contact information. Medical Management Future options- Optimization of pregabalin, lacosamide, would avoid ZNS (sulfa allergies) I discussed the risks, benefits and alternatives of the medical plan with the patient. Questions were answered. The patient agreed with the plan as discussed. FOLLOW-UP: Return in about 3 months (around 12/29/2024). I spent a total of 20 minutes on the date of the service which included: obtaining and/or reviewing separately obtained history counseling and educating the patient/family/caregiver ordering medications, tests, or procedures communicating results to the patient/family/caregiver Joycelyn Woodruff MD [facility] STAFF: TEACHING PHYSICIAN NOTE OF PERSONAL INVOLVEMENT IN CARE I have personally reviewed all aspects of the history and physical examination obtained and documented by the Fellow. Lord components of the physical exam confirmed. I have discussed the case and management of the patient's care with the Fellow and I agree with the assessment and plan as documented. I have made revisions to the above note as needed. Yessi Becerra M.D documented in this encounter [facility] 10-01-2024 Telephone encounter Note Please see 09/15 triage note. Pt was admitted to [facility] for 3 days and then discharged to the [facility]. Pt is to be discharged from there this coming SaturdayOctober 03. Eli calling to make hosp/MO follow up appt. She states pt had been falling a lot and is more weak. He has been having physical therapy. Also she wants Dr. Arroyo to know that Afshin's son (her step-son) was killed-stabbed to and that has been hard on them emotionally. They did find who killed him. Eli is going to make sure that she either brings copies from the [facility] or will try to have the [facility] fax his records from there to Dr. Arroyo. Hospital follow up made for 10/05 at 2 pm. [facility] 10-01-2024 Miscellaneous Notes Please see 09/15 triage note. Pt was admitted to [facility] for 3 days and then discharged to the [facility]. Pt is to be discharged from there this coming SaturdayOctober 03. Eli calling to make hosp/NH follow up appt. She states pt had been falling a lot and is more weak. He has been having physical therapy. Also she wants Dr. Arroyo to know that Afshin's son (her step-son) was killed-stabbed to and that has been hard on them emotionally. They did find who killed him. Eli is going to make sure that she either brings copies from the [facility] or will try to have the [facility] fax his records from there to Dr. Arroyo. Hospital follow up made for 10/05 at 2 pm. documented in this encounter [facility] 09-25-2024 Telephone encounter Note Office received fax from [facility] requesting medical records regarding pt's incontinence supplies. Most recent OV on 07/13/24 has been faxed where urinary incontinence is discussed. Faxed back to [facility] at [phone]. Rachel Buckley MA [facility] 09-25-2024 Miscellaneous Notes Office received fax from [facility] requesting medical records regarding pt's incontinence supplies. Most recent OV on 07/13/24 has been faxed where urinary incontinence is discussed. Faxed back to [facility] at [phone]. Rachel Buckley MA documented in this encounter [facility] 09-25-2024 Telephone encounter Note The following approved medication requests have been transmitted electronically. Requested Prescriptions Pending Prescriptions Disp Refills metoprolol tartrate, short acting, (LOPRESSOR) 25 mg tablet 30 tablet 11 Sig: Take 0.5 tablets by mouth two times a day. fluticasone (FLONASE) 50 mcg/actuation nasal spray 16 g 11 Sig: Use 1 Almont in each nostril two times a day. Rinse mouth after use. Mariano Beckman APRN.OPERATIONS LABEL CLERK [facility] 09-25-2024 Miscellaneous Notes The following approved medication requests have been transmitted electronically. Requested Prescriptions Pending Prescriptions Disp Refills metoprolol tartrate, short acting, (LOPRESSOR) 25 mg tablet 30 tablet 11 Sig: Take 0.5 tablets by mouth two times a day. fluticasone (FLONASE) 50 mcg/actuation nasal spray 16 g 11 Sig: Use 1 Almont in each nostril two times a day. Rinse mouth after use. Mariano Beckman APRN.CNP The patient has been identified by name and date of : Yes Caregiver verified no other encounters exist for this prescription request: Yes Caregiver confirmed with patient/requestor that no other refills are due, in the near future, with this provider at this time: Yes The last office visit in the department: 07/13/2024 Does the patient have a future office visit with this provider/department: no Visit date not found Requested Prescriptions Pending Prescriptions Disp Refills metoprolol tartrate, short acting, (LOPRESSOR) 25 mg tablet 30 tablet 11 Sig: Take 0.5 tablets by mouth two times a day. fluticasone (FLONASE) 50 mcg/actuation nasal spray 16 g 11 Sig: Use 1 Almont in each nostril two times a day. Rinse mouth after use. Therese Paz LPN September 25, 2024 8:55 AM documented in this encounter [facility] 09-25-2024 Telephone encounter Note The patient has been identified by name and date of : Yes Caregiver verified no other encounters exist for this prescription request: Yes Caregiver confirmed with patient/requestor that no other refills are due, in the near future, with this provider at this time: Yes The last office visit in the department: 07/13/2024 Does the patient have a future office visit with this provider/department: no Visit date not found Requested Prescriptions Pending Prescriptions Disp Refills metoprolol tartrate, short acting, (LOPRESSOR) 25 mg tablet 30 tablet 11 Sig: Take 0.5 tablets by mouth two times a day. fluticasone (FLONASE) 50 mcg/actuation nasal spray 16 g 11 Sig: Use 1 Almont in each nostril two times a day. Rinse mouth after use. Therese Paz LPN September 25, 2024 8:55 AM [facility] 09-22-2024 Telephone encounter Note Received notice via [employer] that form/letter was signed by provider. Mildred Adame RN [facility] 09-22-2024 Miscellaneous Notes Received notice via [employer] that form/letter was signed by provider. Mildred Adame RN Letter sent for signature. Mildred Adame RN The schedule is below per last office visit note: Please start taking the following medication: Week 1: Take 25 mg at bedtime Week 2: 25 mg twice daily Week 3: 25 mg in the morning and 50 mg at bedtime Week 4: 50 mg twice daily Week 5: 50 mg in the morning and 75 mg at bedtime Week 6: 75 mg twice daily thereafter. Johanna Balderrama PA-C Patient was hospitalized for a fall at [facility] (not seizure related) and released to rehab. I spoke with Eli she is requesting titration schedule for Pregabalin be faxed to [facility] in [place]. Stated patient is on week 3. Review letter in epic Mildred Adame RN Pt's called [facility] [employer] and asked for an RN to reach out to them. Routed to Dr. Becerra's pool. Shikha Alonso RN documented in this encounter [facility] 09-21-2024 Telephone encounter Note Letter sent for signature. Mildred Adame RN [facility] 09-21-2024 Telephone encounter Note Lyrica was Rx'd by epilepsy. Dania Aj MD [facility] Work Phone: 09-21-2024 Miscellaneous Notes Lyrica was Rx'd by epilepsy. Dania Aj MD called stating that Afshin is currently at the [facility]. She states that the nurse's do not have the correct instructions for his Lyrica slow titration. Copy of office note and Lyrica script faxed to [facility] at [phone]. documented in this encounter [facility] 09-21-2024 Telephone encounter Note The schedule is below per last office visit note: Please start taking the following medication: Week 1: Take 25 mg at bedtime Week 2: 25 mg twice daily Week 3: 25 mg in the morning and 50 mg at bedtime Week 4: 50 mg twice daily Week 5: 50 mg in the morning and 75 mg at bedtime Week 6: 75 mg twice daily thereafter. Johanna Balderrama PA-C [facility] Work Phone: 09-21-2024 Telephone encounter Note Patient was hospitalized for a fall at [facility] (not seizure related) and released to rehab. I spoke with Eli she is requesting titration schedule for Pregabalin be faxed to [facility] in [place]. Stated patient is on week 3. Review letter in [facility] Mildred Adame RN [facility] 09-21-2024 Telephone encounter Note called stating that Afshin is currently at the [facility]. She states that the nurse's do not have the correct instructions for his Lyrica slow titration. Copy of office note and Lyrica script faxed to [facility] at [phone]. [facility] 09-21-2024 Telephone encounter Note Pt's called [facility] [employer] and asked for an RN to reach out to them. Routed to Dr. Becerra's pool. Shikha Alonso RN [facility] 09-18-2024 Hospital Discharg e instructions Patient Education 09/18/2024 11:05:01 Weakness, Dqen-xa-[id number] Weakness Weakness is a lack of strength. You may feel weak all over your body (generalized), or you may feel weak in one part of your body (focal). There are many potential causes of weakness. Sometimes, the cause of your weakness may not be known. Some causes of weakness can be serious, so it is important to see your doctor. Follow these instructions at home: Activity Rest as needed. Try to get enough sleep. Most adults need 7 8 hours of sleep each night. Talk to your doctor about how much sleep you need each night. Do exercises, such as arm curls and leg raises, for 30 minutes at least 2 days a week or as told by your doctor. Think about working with a physical therapist or service trainer to help you get stronger. General instructions Take gfqt-qnd-hziiyat and prescription medicines only as told by your doctor. Eat a healthy, well-balanced diet. This includes: ?Proteins to build muscles, such as lean meats and fish. ?Fresh fruits and vegetables. ?Carbohydrates to boost energy, such as whole grains. Drink enough fluid to keep your pee (urine) pale yellow. Keep all follow-up visits as told by your doctor. This is important. Contact a doctor if: Your weakness does not get better or it gets worse. Your weakness affects your ability to: ?Think clearly. ?Do your normal daily activities. Get help right away if you: Have sudden weakness on one side of your face or body. Have chest pain. Have trouble breathing or shortness of breath. Have problems with your vision. Have trouble talking or swallowing. Have trouble standing or walking. Are light-headed. Pass out (lose consciousness). Summary Weakness is a lack of strength. You may feel weak all over your body or just in one part of your body. There are many potential causes of weakness. Sometimes, the cause of your weakness may not be known. Rest as needed, and try to get enough sleep. Most adults need 7 8 hours of sleep each night. Eat a healthy, well-balanced diet. This information is not intended to replace advice given to you by your health care provider. Make sure you discuss any questions you have with your health care provider. Document Released: 07/04/2009 Document Revised: 02/25/2019 Document Reviewed: 02/25/2019 [employer] Patient Education 2020 [place] [employer] Follow Up Care 09/15/2024 14:00:56 With:Follow up with primary care provider Address:Unknown When: Unknown [facility] 09-18-2024 Note Discharge Instructions Thank you for allowing [facility] to assist you with your healthcare needs. The following is important discharge information regarding your hospital visit. Your Care Team [facility] Your Diagnosis Anxiety Atrial fibrillation Chronic pain Hypertension Stroke Weakness What to do next Follow Up Appointments Follow Up with Follow up with primary care provider The Following Activity and Diet Have Been Ordered for You Transfer of Care Activity - Ordered -- As instructed by therapy, 09/18/24 10:21:00 EST Transfer of Care Diet - Ordered -- Type of Diet: Regular Diet, 09/18/24 10:21:00 EST The Following Treatments Have Been Ordered for You Discharge Labs No qualifying data available. Discharge Radiology No qualifying data available. Other Therapies Transfer of Care OT - Ordered -- Reason for therapy: weakness, 09/18/24 10:21:00 EST Transfer of Care PT - Ordered -- Reason for therapy: Weakness, 09/18/24 10:21:00 EST Post Acute Orders Transfer of Care Admission Level of Care - Ordered -- Level of Care SNF, 09/18/24 10:22:02 EST Transfer of Care Code Status - Ordered -- Full Code, Constant Order Transfer of Care Orders Electronically Signed By - Ordered -- 09/18/24 10:21:00 ESTWILLIAM RACHEL L APRN-OPERATIONS LABEL CLERK Transfer of Care Oxygen Therapy - Ordered -- Oxygen (CONTINUOUS), Mobile in the Home, Nasal Cannula, 2 liters per minute, 999 month(s), 09/18/24 10:21:00 EST Transfer of Care Prognosis - Ordered -- Fair, Patient Aware: Yes Transfer of Care Rehab Potential - Ordered -- Rehab potential fair, 09/18/24 10:22:02 EST Allergies lisinopril(Severe) Lip swelling azithromycin sulfa drug Medications Please ask your primary doctor or pharmacist before taking any other medication not listed, including over the counter drugs, herbal medications, vitamins and or supplements as they may interact with your home medications. What How Much When Why Instructions Last Dose Changed LORazepam (LORazepam 1 mg oral tablet) 1 tab(s) by mouth Three (3) times a day as needed for as needed for anxiety Anxiety Duration: 3 Days Printed Prescription Changed amLODIPine (amLODIPine 10 mg oral tablet) 0.5 tab(s) by mouth Two (2) times a day TAKE 1/ 2 TABLET BY MOUTH TWICE DAILY Changed pregabalin (pregabalin 25 mg oral capsule) 1 cap by mouth Two (2) times a day Chronic pain Duration: 7 Days Printed Prescription Unchanged albuterol (albuterol 2.5 mg/ 0.5 mL (0.5%) inhalation solution) 0.5 Milliliter by inhalation Four (4) times a day as needed for as needed for wheezing Unchanged amiodarone (amiodarone 100 mg oral tablet) 1 tab(s) by mouth Once a day TAKE 1 TABLET BY MOUTH ONCE DAILY *DO NOT TAKE IF HEART RATE IS LESS THAN 40* Unchanged apixaban (Eliquis 5 mg oral tablet) 1 tab(s) by mouth Two (2) times a day TAKE ONE (1) TABLET BY MOUTH TWICE DAILY Unchanged atorvastatin (atorvastatin 40 mg oral tablet) 1 tab(s) by mouth Once a day TAKE 1 TABLET BY MOUTH ONCE DAILY Unchanged baclofen (baclofen 10 mg oral tablet) 0.5 tab(s) by mouth Three (3) times a day TAKE 1/ 2 TABLET BY MOUTH THREE TIMES A DAY Unchanged betamethasone-clotrimazole topical (betamethasone-clotrimazole 0.05%-1% topical cream) 1 application Topical Two (2) times a day Unchanged busPIRone (busPIRone 15 mg oral tablet) 1 tab(s) by mouth Three (3) times a day Unchanged escitalopram (escitalopram 20 mg oral tablet) 1 tab(s) by mouth Once a day TAKE 1 TABLET BY MOUTH ONCE DAILY Unchanged ezetimibe (ezetimibe 10 mg oral tablet) 1 tab(s) by mouth Once a day TAKE 1 TABLET BY MOUTH ONCE DAILY Unchanged famotidine (famotidine 20 mg oral tablet) 1 tab(s) by mouth Daily at bedtime Unchanged ferrous sulfate (FeroSul 325 mg (65 mg elemental iron) oral tablet) 1 tab(s) by mouth Two (2) times a day Unchanged fluticasone nasal (fluticasone proprionate NASAL 50 mcg/ spray) 1 spray(s) each nostril Two (2) times a day Unchanged losartan (losartan 25 mg oral tablet) 1 tab(s) by mouth Once a day Unchanged multivitamin (Multivitamin) 1 tab(s) by mouth Every day Unchanged olodaterol-tiotropium (Stiolto Respimat 60 ACT 2.5 mcg-2.5 mcg/ inh inhalation aerosol) 2 puff(s) by inhalation Every 24 hours Unchanged potassium chloride (Potassium Chloride (Eqv-K-Tab) 20 mEq oral tablet, extended release) 1 tab(s) by mouth Three (3) times a day Unchanged traZODone (traZODone 100 mg oral tablet) 1 tab(s) by mouth Daily at bedtime TAKE 1 TABLET BY MOUTH DAILY AT BEDTIME What How Much When Comments Stop Taking metoprolol (Metoprolol Tartrate 25 mg oral tablet) 0.5 tab(s) by mouth Two (2) times a day Please take this list to your next doctor s visit. Bring all medications you take, including over the counter medications, herbals and other supplements with you to your doctor s visit. Patients and families are reminded to discard old lists and to update any records with all medication providers or retail pharmacies. Medication Leaflets influenza virus vaccine (injection) (IN floo EN za VYE rosa MICHAEL seen) Afluria , Fluad PF Prefilled Syringe , Fluarix PF Prefilled Syringe , Flublok PF Prefilled Syringe , Flucelvax , FluLaval PF Prefilled Syringe , Fluzone What is the most important information I should know about this vaccine? Influenza virus vaccine is made from 'killed viruses' and will not cause you to become ill with the flu virus. What is influenza virus vaccine? Influenza virus ('the flu') is a contagious disease caused by a virus that can spread from one person to another through the air or on surfaces. Flu symptoms include fever, chills, tiredness, aches, sore throat, cough, vomiting, and diarrhea. The flu can also cause sinus infections, ear infections, bronchitis, or serious complications such as pneumonia. Influenza virus vaccine is for use in adults and children to prevent infection caused by influenza virus. This vaccine helps your body develop immunity to the disease, but will not treat an active infection you already have. The injectable influenza virus vaccine (flu shot) is made from 'killed viruses.' This medication guide addresses only the injectable form of this vaccine. Like any vaccine, influenza virus vaccine may not provide protection from disease in every person. What should I discuss with my healthcare provider before receiving this vaccine? You may not receive this vaccine if you are allergic to eggs, or if you have ever had a severe allergic reaction to a flu vaccine. Tell your vaccination provider if you have: fever; fainted after receiving an injection; a weak immune system (caused by disease or by using certain medicine); or a history of Guillain-Rush syndrome (within 6 weeks after receiving a flu vaccine). Tell your vaccination provider if you are or . How is this vaccine given? Follow your doctor's instructions or the schedule recommended by your local health department. Your vaccination provider, pharmacist, or doctor can recommend the best influenza virus vaccine for your age. This vaccine is given as an injection (shot) into a muscle. Since the influenza virus vaccine is redeveloped each year for specific strains of influenza, you should receive a flu vaccine every year. What happens if I miss a dose? Be sure to receive all recommended doses of this vaccine or you may not be fully protected against disease. What happens if I overdose? An overdose of this vaccine is unlikely to occur. What should I avoid before or after receiving this vaccine? Follow your vaccination provider's instructions about any restrictions on food, beverages, or activity. What are the possible side effects of influenza virus vaccine? Get emergency medical help if you have signs of an allergic reaction: hives, difficult breathing, swelling of your face, lips, tongue, or throat. Keep track of any and all side effects you have. If you receive an this vaccine in the future, you may need to tell the vaccination provider if the previous shot caused any side effects. Influenza virus vaccine is made from 'killed viruses' and will not cause you to become ill with the flu virus. You may have flu-like symptoms at any time during flu season that may be caused by other strains of influenza virus. Call your doctor at once if you have: a light-headed feeling, like you might pass out; or nervous system problems--numbness, pain, tingling, weakness, burning or prickly feeling, vision or hearing problems, trouble breathing. Common side effects may include: pain, redness, tenderness, swelling, bruising, or a hard lump where the shot was given; diarrhea, loss of appetite; muscle pain; headache, tiredness; or fussiness, crying, or drowsiness in a child. This is not a complete list of side effects and others may occur. Call your doctor for medical advice about side effects. You may report vaccine side effects to the [place] Department of Health and Human Services at . What other drugs will affect influenza virus vaccine? Before receiving this vaccine, tell your vaccination provider about all other vaccines you have recently received. Other drugs may affect influenza virus vaccine, including prescription and jpom-fso-hqyandm medicines, vitamins, and herbal products. Tell your doctor about all other medicines you use. Where can I get more information? Your vaccination provider, pharmacist, or doctor can provide more information about this vaccine. Additional information is available from your local health department or the Centers for Disease Control and Prevention. Remember, keep this and all other medicines out of the reach of children, never share your medicines with others, and use this medication only for the indication prescribed. Every effort has been made to ensure that the information provided by [employer]. ('[employer]') is accurate, up-to-date, and complete, but no guarantee is made to that effect. Drug information contained herein may be time sensitive. [employer] information has been compiled for use by healthcare practitioners and consumers in the [place] and therefore [employer] does not warrant that uses outside of the [place] are appropriate, unless specifically indicated otherwise. [employer] drug information does not endorse drugs, diagnose patients or recommend therapy. [employer] drug information is an informational resource designed to assist licensed healthcare practitioners in caring for their patients and/or to serve consumers viewing this service as a supplement to, and not a substitute for, the expertise, skill, knowledge and judgment of healthcare practitioners. The absence of a warning for a given drug or drug combination in no way should be construed to indicate that the drug or drug combination is safe, effective or appropriate for any given patient. [employer] does not assume any responsibility for any aspect of healthcare administered with the aid of information [employer] provides. The information contained herein is not intended to cover all possible uses, directions, precautions, warnings, drug interactions, allergic reactions, or adverse effects. If you have questions about the drugs you are taking, check with your doctor, nurse or pharmacist. Copyright 7200-5641 [employer]. Version: 14.02. Revision Date: 03/17/2024. Education Materials Weakness Weakness is a lack of strength. You may feel weak all over your body (generalized), or you may feel weak in one part of your body (focal). There are many potential causes of weakness. Sometimes, the cause of your weakness may not be known. Some causes of weakness can be serious, so it is important to see your doctor. Follow these instructions at home: Activity Rest as needed. Try to get enough sleep. Most adults need 7 8 hours of sleep each night. Talk to your doctor about how much sleep you need each night. Do exercises, such as arm curls and leg raises, for 30 minutes at least 2 days a week or as told by your doctor. Think about working with a physical therapist or service trainer to help you get stronger. General instructions Take suhj-aav-uvdueyq and prescription medicines only as told by your doctor. Eat a healthy, well-balanced diet. This includes: ? Proteins to build muscles, such as lean meats and fish. ? Fresh fruits and vegetables. ? Carbohydrates to boost energy, such as whole grains. Drink enough fluid to keep your pee (urine) pale yellow. Keep all follow-up visits as told by your doctor. This is important. Contact a doctor if: Your weakness does not get better or it gets worse. Your weakness affects your ability to: ? Think clearly. ? Do your normal daily activities. Get help right away if you: Have sudden weakness on one side of your face or body. Have chest pain. Have trouble breathing or shortness of breath. Have problems with your vision. Have trouble talking or swallowing. Have trouble standing or walking. Are light-headed. Pass out (lose consciousness). Summary Weakness is a lack of strength. You may feel weak all over your body or just in one part of your body. There are many potential causes of weakness. Sometimes, the cause of your weakness may not be known. Rest as needed, and try to get enough sleep. Most adults need 7 8 hours of sleep each night. Eat a healthy, well-balanced diet. This information is not intended to replace advice given to you by your health care provider. Make sure you discuss any questions you have with your health care provider. Document Released: 07/04/2009 Document Revised: 02/25/2019 Document Reviewed: 02/25/2019 [employer] Patient Education 2020 [employer]. Additional Information VACCINATE! IT SAVES LIVES! Members of the community who have not yet received the COVID-19 vaccine and would like to receive it can visit one of [facility] vaccine clinics. There are many vaccine clinic locations within the [facility]. For locations and available times, please visit https://gettheshot.coronavirus.o nmo.gov/. It is important to note that some COVID mobile vaccine clinics are held outdoors and may be canceled in rainy or stormy conditions. To learn more about pediatric vaccinations (ages 5-11), we invite you to visit the [facility] webpage. [email or web address] [email or web address] To learn more about the COVID-19 vaccine, we invite you to visit the CDC website for a list of frequently asked questions.https://www.cdc.gov/co ronavirus/2019-ncov/vaccines/faq .html [employer] [facility] Patient Portal Access Instructions: Stay connected with your healthcare team and access your personal medical information anytime with the [employer] Patient Portal. Please follow the directions below to create your [employer] account: 1.Access the email account you provided upon registration to the hospital/physician office.2.Look for an invitation email from [facility].3.Open the email and access the invitation link: Accept Invitation to [employer] [facility].4.Fill in the required krueger to create your account. To access your account, visit [email or web address]. Click the blue button labeled Access Patient Portal and then log in with the username and password that you created in the steps above. You will be able to view your test results, lab results, a summary of your visits, upcoming appointments and more. There is also a convenient messaging option where you can send secure messages to your provider. In addition, you will have the ability to download any documents or summaries to your computer and/or send the information securely to a physician. Remember that your healthcare information is confidential, so carefully consider who you will allow to register on the [employer] Patient Portal for access to your information. You can also access the [employer] Patient Portal on the [employer] rigo. Simply click on Patient Portal and then log into your account. If you would like to receive a full copy of your medical records, please contact the [facility] Medical Records Department by calling [phone], Saturday through Saturday between 8 a.m. and 4:30 p.m. HOW TO SAFELY DISPOSE OF PRESCRIPTION MEDICATIONS Please use one of the following methods to safely dispose of your unused medications. 1.Use a drug disposal kit: the drug disposal pouch allows you to safely discard your old and unused drugs. Ask your nurse to give you one when you are discharged.2.Visit a local take-back location: Many local pharmacies and police departments have programs that collect old and unwanted prescription drugs. Call your local pharmacy or go to http://The Posh[employer]er/2Q5Je7u to find one close to you.3.Make use of household items: Use cat litter or old coffee grounds to dispose medications if other options are not available. Mix your drugs with these household products, seal them in an airtight container and throw it into the garbage. Call [facility]: [phone] to be sure your drugs can be disposed of in this way. Some medicines may require a different approach.4.Never flush your medications down the toilet. IF YOU HAVE BEEN PRESCRIBED AN OPIOID FOR PAIN If you have been prescribed an opioid (such as hydrocodone, oxycodone or morphine), it is critical to understand the possible side effects and risks of opioid pain medications. Even when taken as directed, opioids can have several side effects including: Tolerance, meaning you might need to take more of a medication for the same pain relief. Nausea, vomiting and/or constipation. Sleepiness, dizziness, dry mouth, confusion, depression or itching. Physical dependence, meaning you have withdrawal symptoms when a medication is stopped, can develop within a few days. KNOW YOUR RESPONSIBILITIES It is important to know exactly how much and how often to take the opioid pain medications you are prescribed. Never take opioids in higher amounts or more often than prescribed. Do not combine opioids with alcohol or other drugs that cause drowsiness, such as benzodiazepines, also known as benzos, including diazepam and alprazolam, muscle relaxants or sleep aids. Never sell or share prescription opioids. This is illegal. Store opioids in a secure place and out of reach of others (including children, family, friends and visitors). The last page of this document has been signed and retained as a CHART COPY. Signatures Patient Education Materials Weakness, Wdce-wq-Cysk Medication Leaflets influenza virus vaccine, inactivated adjuvanted preservative-free quadrivalent intramuscular suspens My discharge plan and instructions have been reviewed and explained to me and I,AFSHIN ZEE understand my current condition and have read and understand these discharge instructions. I have received a written copy of the plan/instructions. If I have questions, I am aware that I should contact my doctor. 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 Patient presented to [facility] emergency department on 09/15/2024 with increased weakness, polyuria, inability to ambulate. unable to care for him at home as he is falling more. In the emergency department he was afebrile, bradycardic, normotensive with adequate oxygenation on room air. White blood cell count 11.5, urinalysis with 7 0. Otherwise unremarkable. BMP unremarkable. COVID/flu/RSV negative. X-ray chest negative. CT brain with no acute changes. Patient was subsequently admitted. Patient was evaluated by therapy services with recommendation for inpatient therapy. Patient has been accepted at [facility], precert has been started. Patient has no complaints today. Objective Vitals and Measurements T: 36.9 C (Oral) TMIN: 36.4 C (Oral) TMAX: 36.9 C (Oral) HR: 54 (Monitored) RR: 18 BP: 139/69 SpO2: 92% WT: 90.0 kg Intake and Output 7AM Yesterday to 7AM Today Intake and Output (Last 24 hours) Intake Output Urine Voided 750.00 Total Summary Total Intake 0.00 Total Output 750.00 Fluid Balance -750.00 Physical Exam GEN: Appears chronically ill CHEST: Normal S1 and S2. Rhythm is regular. Clear and diminished. ABD: Positive bowel sounds x 4 quads. Soft, nondistended, nontender. EXT: No significant deformity or joint abnormality. No edema. Peripheral pulses intact. Right-sided weakness. Baseline. NEURO: Expressive aphasia SKIN: Skin color normal PSYCH: The mental examination revealed the patient was alert and interactive. Weight Current Weight Dosing Weight: 89.5 kg (09/15/24) Current Weight: 90 kg (09/17/24) Dosing Weight: 86.4 kg (09/15/24) Medications Medications (24) Active Scheduled: (16) amiodarone 200 mg tablet 100 mg 0.5 tab(s), Oral, qDay amLODIPine 5 mg tablet 5 mg 1 tab(s), Oral, BID apixaban 5 mg tablet 5 mg 1 tab(s), Oral, BID atorvastatin 40 mg tablet 40 mg 1 tab(s), Oral, qDay baclofen 10 mg tablet 5 mg 0.5 tab(s), Oral, TID busPIRone 5 mg Tablet 15 mg 3 tab(s), Oral, TID escitalopram 10 mg tablet 20 mg 2 tab(s), Oral, qDay ezetimibe 10 mg tablet 10 mg 1 tab(s), Oral, qDay famotidine 20 mg tablet 20 mg 1 tab(s), Oral, qHS ferrous sulfate 325 mg Tablet 325 mg 1 tab(s), Oral, BID fluticasone nasal 0.05 mg/inh [place] 50 mcg 1 spray(s), Nostril, each, BID losartan 25 mg tablet 25 mg 1 tab(s), Oral, qDay multivitamin (Myadec) with minerals Therapeutic Multiple Vitamins with Minerals Tablet 1 tab(s), Oral, qDayM potassium chloride 20 mEq ER tablet 20 mEq 1 tab(s), Oral, TID pregabalin 25 mg capsule 25 mg 1 cap(s), Oral, BID traZODONE 50 mg Tablet 100 mg 2 tab(s), Oral, qHS Continuous: (0) PRN: (8) acetaminophen 325 mg Tablet 650 mg 2 tab(s), Oral, q4h acetaminophen 325 mg Tablet 650 mg 2 tab(s), Oral, q4h albuterol - ipratropium 2.5 mg-0.5 mg/3 mL Inhal Brooke UD 3 mL, Inhalation, q4hRT benzonatate 100 mg Capsule 100 mg 1 cap(s), Oral, TID calcium carbonate 500 mg Chewable 500 mg 1 tab(s), Chewed, TID emollients (Desitin) 1 rigo, Topical, AsDirected guaifenesin 100 mg/5 mL Liquid 120 mL 200 mg 10 mL, Oral, q4h melatonin 3 mg tablet 6 mg 2 tab(s), Oral, qHS Lab Results 09/17 05:41 Glucose Level: 88 Sodium Level: 140 Potassium Level: 4.3 BUN: 15 Creatinine Lvl (s): 1.16 09/16 05:48 WBC: 10.8 Hgb: 13.9 Hct: 40.4 Platelet: 224 Neutrophil %: 60.0 Glucose Level: 79 L Sodium Level: 143 Potassium Level: 4.3 BUN: 17 Creatinine Lvl (s): 1.16 Imaging Results and Diagnostics CT Head or Brain w/o Contrast Result Date: September 15, 2024 Verified By: ZENAIDA SHI MD CLINICAL STATEMENT: IMPRESSION: Volume loss, small vessel ischemic disease and a remote large left-sidedinfarct, all similar to the comparison. XR Chest 1 View Result Date: September 15, 2024 Verified By: ZO STEVENS MD CLINICAL STATEMENT: IMPRESSION: No acute radiographic findings. I have personally reviewed the images of this examination and agree with theresident's findings and interpretation. Assessment/Plan 1. Weakness 2. Hypertension 3. Atrial fibrillation 4. Stroke Weakness- Continue PT and OT. Awaiting precert for SNF. HTN- SBP goal 140 or less. Continue home antihypertensives. Atrial Fibrillation- Rate controlled. Bradycardic at time. Hold metoprolol. Continue amiodarone. Hx CVA- Right sided weakness and aphasia. This is baseline. DVT prophylaxis:Apixaban Code Status:DNRCCA/DNI Plan of care discussed with patient. All questions answered. Patient verbalizes understanding is agreeable to plan of care. This dictation was performed using voice recognition software and may include grammatical and/or spelling errors. Anticipated Date of Discharge Medically optimized for discharge. Awaiting insurance precert Time Spent 36 minutes Digitally Signed by KYLIE BLUM on 09/17/2024 02:54 PM [facility] 09-16-2024 Note Date of Service 09/16/2024 Chief Complaint patient and spouse informed saturday [place] patient with history of CVA and aphasia has been more weak than normal, unable to ambulate as normal and is urinating excessively. History of Present Illness Patient is a 69-year-old male, who follows with Dr. Jaci Arroyo with a past medical history significant for hypertension, hyperlipidemia, coronary artery disease s/p CABG, atrial fibrillation, CVA and COPD, presents to [facility] emergency department with the chief complaint of increased weakness. Patient had a previous stroke and has aphasia ever since then. He is typically able to ambulate at home but has been weaker than normal and having increased falls at home. Patient has an aide who comes in a few times a week but with this excessive weakness, she does not feel that she can continue to care for him at home. feels that patient would benefit from a rehab stay. On top of that, patient and learned over the weekend that their son was murdered in [place] state. She feels that that has contributed to his decline. She also reports he has been incontinent of stool and urine which is new for patient. states that she has not observed any fever, chills, cough, shortness of breath, vomiting, or diarrhea. In the emergency department, CT of the head revealed volume loss, small vessel ischemic disease and a remote large left-sided infarct, all similar to the comparison. Chest x-ray also revealed no acute radiographic abnormalities. White blood cell count 11.5. CBC otherwise unremarkable. BMP significant for BUN 22. Urinalysis unremarkable. COVID/RSV/Flu swab negative. No medications were administered in the ED. The case was discussed with the ED physician who recommended admission for likely placement. Patient transferred to medical surgical unit for observation. We will consult PT and OT to evaluation and treat. business services administrator following for discharge planning. Repeat CBC and BMP in the am. Patient seen and evaluated while resting in bed. He appeared to be in no acute distress but does get upset when staff tries to assist him. Therapy already tried to work with him but he pointed to the door. We are hoping that he will cooperate with therapy this afternoon when comes in. Physical exam unremarkable other than right arm weakness and severe aphasia. Patient wears 4-6L of oxygen at night per . He is currently on room air with good oxygen saturations. All questions answered. Review of Systems Review of Systems: Reviewed in detail, including general health, HEENT, cardiovascular, respiratory, gastrointestinal, genitourinary, endocrine, musculoskeletal, neurologic, vascular, skin, and psychiatric. All are negative except for those listed in the History of Present Illness. Physical Exam Vitals and Measurements T: 36.7 C (Oral) TMIN: 36.4 C (Oral) TMAX: 36.7 C (Oral) HR: 59 (Monitored) RR: 16 BP: 139/66 SpO2: 94% HT: 177.8 cm WT: 89.5 kg BMI: 28.31 Weight Dosing Weight: 89.5 kg (09/15/24) Dosing Weight: 86.4 kg (09/15/24) General: No acute distress. Patient is alert, chronically ill-appearing. Skin: No rash. Skin is warm, dry and intact. HEENT: Head is normocephalic, atraumatic. Pupils are equal, round and reactive. Neck: Supple. No lymphadenopathy, thyromegaly. Lungs: Bilaterally clear but diminished without crepitation or wheeze. Unlabored. Heart: Heart is regular rhythm, S1, S2. No murmurs, gallops or rubs. Abdomen: Abdomen is soft, nontender. Bowels sounds present in all quadrants. Extremities: No clubbing, cyanosis, or edema. Peripheral pulses palpable. No calf tenderness. Right arm weakness. Neurological: Patient is awake and alert but severe aphasia so unable to answer questions other than yes/no. Following simple commands, moving all extremities. Lab Results 09/16 05:48 WBC: 10.8 Hgb: 13.9 Hct: 40.4 Platelet: 224 Neutrophil %: 60.0 Glucose Level: 79 L Sodium Level: 143 Potassium Level: 4.3 BUN: 17 Creatinine Lvl (s): 1.16 09/15 15:09 WBC: 11.5 H Hgb: 15.3 Hct: 45.0 Platelet: 236 Neutrophil %: 70.0 Glucose Level: 86 Sodium Level: 137 Potassium Level: 4.9 BUN: 22 H Creatinine Lvl (s): 1.25 Imaging Results and Diagnostics CT Head or Brain w/o Contrast Result Date: September 15, 2024 Verified By: ZENAIDA SHI MD CLINICAL STATEMENT: IMPRESSION: Volume loss, small vessel ischemic disease and a remote large left-sided infarct, all similar to the comparison. XR Chest 1 View Result Date: September 15, 2024 Verified By: ZO STEVENS MD CLINICAL STATEMENT: IMPRESSION: No acute radiographic findings. I have personally reviewed the images of this examination and agree with the resident's findings and interpretation. Assessment/Plan 1. Weakness Acute, likely secondary to deconditioning. Consult placed to PT and OT. granite worker following for discharge planning. 2. Atrial fibrillation Chronic, paroxysmal. Continue eliquis and metoprolol at current dose. 3. Hypertension Chronic, controlled. Continue current antihypertensives. SBP goal of 140 or less. 4. 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 DVT prophylaxis with eliquis. Code status: DNRCCA - do not intubate. Labs, diagnostic test and progress notes reviewed as noted in HPI. Plan of care discussed with patient. All questions answered. Patient verbalizes understanding and is agreeable with plan of care. This case was discussed with collaborating physician, Dr. Tracey Dial. 58 minutes spent reviewing past diagnostic tests, reviewing lab results, vital sign trends, medical history, reviewing medications and ordering home medications, examining patient, discussed plan of care with care team, collaborating with physician, and documenting in chart. Procedure/Surgical History CABG x 5 - Coronary artery bypass grafts x 5 Medications Home Medications (21) Active albuterol 2.5 mg/0.5 mL (0.5%) inhalation solution 2.5 mg = 0.5 mL, PRN, Inhalation, QID amiodarone 100 mg oral tablet 100 mg = 1 tab(s), Oral, qDay amLODIPine 10 mg oral tablet 5 mg = 0.5 tab(s), Oral, BID atorvastatin 40 mg oral tablet 40 mg = 1 tab(s), Oral, qDay baclofen 10 mg oral tablet 5 mg = 0.5 tab(s), Oral, TID betamethasone-clotrimazole 0.05%-1% topical cream 1 rigo, Topical, BID busPIRone 15 mg oral tablet 15 mg = 1 tab(s), Oral, TID Eliquis 5 mg oral tablet 5 mg = 1 tab(s), Oral, BID escitalopram 20 mg oral tablet 20 mg = 1 tab(s), Oral, qDay ezetimibe 10 mg oral tablet 10 mg = 1 tab(s), Oral, qDay famotidine 20 mg oral tablet 20 mg = 1 tab(s), Oral, qHS FeroSul 325 mg (65 mg elemental iron) oral tablet 325 mg = 1 tab(s), Oral, BID fluticasone proprionate NASAL 50 mcg/ spray 1 spray(s), Nostril, each, BID LORazepam 1 mg oral tablet 1 mg = 1 tab(s), PRN, Oral, TID losartan 25 mg oral tablet 25 mg = 1 tab(s), Oral, qDay Metoprolol Tartrate 25 mg oral tablet 12.5 mg = 0.5 tab(s), Oral, BID Multivitamin 1 tab(s), Oral, Daily Potassium Chloride (Eqv-K-Tab) 20 mEq oral tablet, extended release 20 mEq = 1 tab(s), Oral, TID pregabalin 25 mg oral capsule 25 mg = 1 cap(s), Oral, BID Stiolto Respimat 60 ACT 2.5 mcg-2.5 mcg/inh inhalation aerosol 2 puff(s), Inhalation, q24h traZODone 100 mg oral tablet 100 mg = 1 tab(s), Oral, qHS Allergies lisinopril(Severe) Lip swelling azithromycin sulfa drug Social History Alcohol Use: Never., 09/15/2024 Substance Abuse Use: Never., 09/15/2024 Tobacco Nicotine Use: Former smoker, quit more than 30 days ago., 11/18/2022 Family History Diabetes: Mother. Heart disease: Mother. Stroke: Father. Health Status Family Member(s) Immunizations SARS-CoV-2 (COVID-19) mRNA-1273 vaccine: 0.25 unknown unit (07/17/21) SARS-CoV-2 (COVID-19) mRNA-1273 vaccine: 0.5 unknown unit (11/17/20) SARS-CoV-2 (COVID-19) mRNA-1273 vaccine: 0.5 unknown unit (10/20/20) Code Status Code Status - Ordered -- 09/15/24 17:09:00 EST, DNRCC-Arrest Do Not Intubate, Constant Order Digitally Signed by RICARDO MARIE on 09/16/2024 04:53 PM [facility] 09-16-2024 Evaluation + Plan note Extrac arpit from: Title:History and Physical Author:RICARDO MARIE Date:09/16/24 1. Weakness Acute, likely secondary to deconditioning. Consult placed to PT and OT. granite worker following for discharge planning. 2. Atrial fibrillation Chronic, paroxysmal. Continue eliquis and metoprolol at current dose. 3. Hypertension Chronic, controlled. Continue current antihypertensives. SBP goal of 140 or less. 4. 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 DVT prophylaxis with eliquis. Code status: DNRCCA - do not intubate. Labs, diagnostic test and progress notes reviewed as noted in HPI. Plan of care discussed with patient. All questions answered. Patient verbalizes understanding and is agreeable with plan of care. This case was discussed with collaborating physician, Dr. Tracey Dial. 58 minutes spent reviewing past diagnostic tests, reviewing lab results, vital sign trends, medical history, reviewing medications and ordering home medications, examining patient, discussed plan of care with care team, collaborating with physician, and documenting in chart. [facility] 02-12-2025 Pastoral care Progress note Pastoral Care Note Entered On: 09/16/2024 9:48 EST Performed On: 09/16/2024 9:45 EST by Johny Morales Pastoral Care Type of Pastoral Visit : Initial visit Spiritual Care Visit Initiated by : Head Bellhop Captain Spiritual Care Reason for Visit : General Spiritual Assessment : Other: unable to assess Spiritual Care Emotional Assessment : Other: unable to assess Spiritual Care Intervention : Words of Encouragement, Supportive presence Spiritual Plan of Care : Spiritual Care Declined, No Further Action Pastoral Care Comments : patient has asphasia and the RT is in the room to assess his O2 levels; pthad been agitated earlier this morning but is now calm and smiling; pt is asked about needs, and ifprayer would be beneficial; pt is strong in his answer of no; offer of support in the future if so desired Number Present During Pastoral Visit : 1 Pastoral Care Visit Length : 5 minute(s) Johny Morales - 09/16/2024 9:45 EST Digitally Signed by Johny Morales on 09/16/2024 09:45 AM [facility]02-12-2025 HCoV 229E RNA PAMELA+non-probe Ql (Nph) Not Detected *NA* (09/16/24 8:22 AM)[facility] [employer]/Sero [id number] Note* Exam Date Time Procedure Performing Provider Status 09/15/24 4:[address] Head or Brain w/o Contrast Dany SHI MD; Auth (Verified) [id number] ORIGINAL HISTORY: Fall COMPARISON: 26 July 2023 TECHNIQUE: Routine noncontrast head CT, with sagittal and coronal reconstructions. This exam was performed according to our departmental dose optimization program, and includes the following measures where applicable: automated exposure control, adjustment of the mAs and/or kVp according to patient size and/or exam, and an iterative reconstruction algorithm. FINDINGS: There is a large left-sided infarct, and there is ex vacuo dilatation of the left lateral ventricle. The ventricles and sulci are otherwise mildly enlarged. There are no abnormal intra or extra-axial fluid collections. There is mild irregular decreased attenuation in the cerebral white matter. The calvaria and the bones of the base of the skull are intact. IMPRESSION: Volume loss, small vessel ischemic disease and a remote large left-sided infarct, all similar to the comparison. Interpreted by: Zenaida Shi MD Preliminary Report By: Zenaida Shi MD Electronically signed By Zenaida Shi MD Dictated Date: 09/15/2024 4:30:47 PM Prelim Date: 09/15/2024 4:36:30 PM Sign Date: 09/15/2024 4:36:30 PM Ordering Provider: NASIM ANDERS [facility]02-11-2025 Note* Exam Date Time Procedure Performing Provider Status 09/15/24 3:04 PM XR Chest 1 View ZO STEVENS MD; Auth (Verified) [id number] ORIGINAL EXAMINATION: ONE XRAY VIEW OF THE CHEST09/15/2024 3:04 pm COMPARISON: 07/26/2023 HISTORY: ORDERING SYSTEM PROVIDED HISTORY: Reason for Exam: Weakness FINDINGS: Cardiomediastinal contours are stable in appearance. Median sternotomy wires are noted and intact. The aorta appears mildly torturous. Aortic atherosclerosis is noted. No focal consolidation or pulmonary edema. There is some interstitial prominence in the mid and lower lungs that seem to be chronic. No pneumothorax or pleural effusion. No acute osseous abnormalities. Stable appearing degenerative changes of the bilateral shoulders. IMPRESSION: No acute radiographic findings. I have personally reviewed the images of this examination and agree with the resident's findings and interpretation. Interpreted by: Zo Stevens MD Preliminary Report By: Earl Soto Electronically signed By Zo Stevens MD Dictated Date: 09/15/2024 3:11:41 PM Prelim Date: 09/15/2024 3:27:25 PM Sign Date: 09/15/2024 3:27:25 PM Ordering Provider: NASIM ANDERS [facility]02-11-2025 Note* Exam Date Time Procedure Performing Provider Status 09/15/24 3:02 PM EKG [ED AOH] - CV MATTHEW AVALOS MD; Auth (Verified) ECG Final Report Sinus rhythm Prolonged SC interval RSR' in V1 or V2, right VCD or RVH Inferior infarct, old Electronic Signature: MATTHEW AVALOS MD 09/15/2024 15:10:32 [facility]02-11-2025 Telephone encounter Note* Telephone Encounter - Kassandra Okeefe RN - 09/15/2024 12:00 PM EST Eli will take pt to ER with hx of stroke, weakness, difficulty walking, foul smelling urine and incontinent of large foul smelling stool. Reason for Disposition [1] Decreased urination and [2] drinking very little AND [3] dehydration suspected (e.g., dark urine, no urine > 12 hours, very dry mouth, very lightheaded) [1] Drinking very little AND [2] dehydration suspected (e.g., no urine > 12 hours, very dry mouth, very lightheaded) Weakness in both sides of the body or weakness all over [1] Loss of bladder or bowel control (urine or bowel incontinence; wetting self, leaking stool) AND[2] new-onset Answer Assessment - Initial Assessment Questions 1. SYMPTOM: weakness and difficulty walking. Pt with hx of severe stroke 8 years ago. Eli states the increased weakness and difficulty walking started yesterday and she is very concerned abouthim. 2. ONSET: see above 3. LAST NORMAL:2 days ago 4. PATTERN constant 5. CARDIAC SYMPTOMS: Pt is non verbal so hard to assess. 6. NEUROLOGIC SYMPTOMS: more unsteady on his feet. Eli does not feel he is having any other pain. 7. OTHER SYMPTOMS: Eli states pt has very odorous bright orange urine and had a very very large BM that was liquidy with chunks of stool in it and she states both his urine and stool smelled very bad. Eli feels he is not taking his fluids as well and did not eat as well today. She states the weakness and difficulty walking is so bad that she cannot get him to a wheelchair by herself. She also states that pt's son, her step-son was killed in [place] yesterday. She isn't sure if anyof this could be from pt's response to that but with all that is going on and hx of stroke, pt should go to hospital ER to be evaluated. Eli does not want to take him to [facility] and states she can onlydrive someplace local so she is going to take him to [facility] and if they have to transfer him anywhere, she will ask for him to be taken to a [facility] facility. Eli is very concerned about pt and wants him to get the proper care. Answer Assessment - Initial Assessment Questions 1. DESCRIPTION: Pt nonverbal due to previous stroke. Pt's said is much weaker than normal and having difficulty walking. 2. SEVERITY: moderate to severe - MILD (0-3): Feels weak or tired, but does not interfere with work, school or normal activities. - MODERATE (4-7): Able to stand and walk; weakness interferes with work, school, or normal activities. - SEVERE (8-10): Unable to stand or walk; unable to do usual activities. 3. ONSET:noticed yesterday 4. CAUSE: concerned that something medical is going on 5. NEW MEDICINES: Was started on a new seizure medication 6. OTHER SYMPTOMS: Having bright orange foul smelling urine and had a very large, very odorous liquid BM with some chunks in it. Answer Assessment - Initial Assessment Questions 1. SYMPTOM: color bright orange and smells awful per . 2. ONSET:today 3. PAIN: Eli does not feel he is having any pain-pt non verbal 4. CAUSE: unsure 5. OTHER SYMPTOMS: weakness, difficulty walking and had a very large odorous liquid stool with chunks Protocols used: Neurologic Edvhafw-AJQWJ-OT, Weakness (Generalized) and Dmqrzyw-RBQRB-MY, Urinary Pzcdtyyv-NGBJU-JE [facility]02-11-2025 Miscellaneous Notes* Telephone Encounter - Kassandra Okeefe RN - 09/15/2024 12:00 PM EST Eli will take pt to ER with hx of stroke, weakness, difficulty walking, foul smelling urine and incontinent of large foul smelling stool. Reason for Disposition [1] Decreased urination and [2] drinking very little AND [3] dehydration suspected (e.g., dark urine, no urine > 12 hours, very dry mouth, very lightheaded) [1] Drinking very little AND [2] dehydration suspected (e.g., no urine > 12 hours, very dry mouth, very lightheaded) Weakness in both sides of the body or weakness all over [1] Loss of bladder or bowel control (urine or bowel incontinence; wetting self, leaking stool) AND[2] new-onset Answer Assessment - Initial Assessment Questions 1. SYMPTOM: weakness and difficulty walking. Pt with hx of severe stroke 8 years ago. Eli states the increased weakness and difficulty walking started yesterday and she is very concerned abouthim. 2. ONSET: see above 3. LAST NORMAL:2 days ago 4. PATTERN constant 5. CARDIAC SYMPTOMS: Pt is non verbal so hard to assess. 6. NEUROLOGIC SYMPTOMS: more unsteady on his feet. Eli does not feel he is having any other pain. 7. OTHER SYMPTOMS: Eli states pt has very odorous bright orange urine and had a very very large BM that was liquidy with chunks of stool in it and she states both his urine and stool smelled very bad. Eli feels he is not taking his fluids as well and did not eat as well today. She states the weakness and difficulty walking is so bad that she cannot get him to a wheelchair by herself. She also states that pt's son, her step-son was killed in [place] yesterday. She isn't sure if anyof this could be from pt's response to that but with all that is going on and hx of stroke, pt should go to hospital ER to be evaluated. Eli does not want to take him to [facility] and states she can onlydrive someplace local so she is going to take him to [facility] and if they have to transfer him anywhere, she will ask for him to be taken to a [facility] facility. Eli is very concerned about pt and wants him to get the proper care. Answer Assessment - Initial Assessment Questions 1. DESCRIPTION: Pt nonverbal due to previous stroke. Pt's said is much weaker than normal and having difficulty walking. 2. SEVERITY: moderate to severe - MILD (0-3): Feels weak or tired, but does not interfere with work, school or normal activities. - MODERATE (4-7): Able to stand and walk; weakness interferes with work, school, or normal activities. - SEVERE (8-10): Unable to stand or walk; unable to do usual activities. 3. ONSET:noticed yesterday 4. CAUSE: concerned that something medical is going on 5. NEW MEDICINES: Was started on a new seizure medication 6. OTHER SYMPTOMS: Having bright orange foul smelling urine and had a very large, very odorous liquid BM with some chunks in it. Answer Assessment - Initial Assessment Questions 1. SYMPTOM: color bright orange and smells awful per . 2. ONSET:today 3. PAIN: Eli does not feel he is having any pain-pt non verbal 4. CAUSE: unsure 5. OTHER SYMPTOMS: weakness, difficulty walking and had a very large odorous liquid stool with chunks Protocols used: Neurologic Xsvqfte-UUDNY-AI, Weakness (Generalized) and Vinepvc-GVTXR-KT, Urinary Pgyqppit-QPOBA-FA [facility] Telephone encounter Note * Telephone Encounter - Kimo Mcgrath MD - 09/14/2024 11:31 AM EST He should have active refills [facility]02-10-2025 Miscellaneous Notes* Telephone Encounter - Kimo Mcgrath MD - 09/14/2024 11:31 AM EST He should have active refills * Telephone Encounter - Jessie Langston - 09/14/2024 8:29 AM EST SPOUSE CALLED TO REPORT THAT THEIR SONE WHO LIVED OUT OF STATE HAS UNEXPECTADLY. PATIENT IS DUE TO MEDICATIONS PRESCRIBED BY DR. MCGRATH BUT SPOUSE WAS UNSURE AT THE TIME WHICH ONES NEEDED REFILLS. PSS PENDED MEDICATIONS PRESCRIBED BY DR. MCGRATH IF CLINICAL COULD REVIEW AND REMOVE/ADD WHAT IS NECESSARY. PATIENT HAS BEEN R/S WITH RIGO FOR 6 MONTH F/U ON 10/06/24. Prescription Refill Information The patient has been identified by name and date of : Yes Caregiver verified no other encounters exist for this prescription request: Yes Caregiver confirmed with patient/requestor that no other refills are due, in the near future, with this provider at this time: Yes The last office visit in the department: 03/23/24 Does the patient have a future office visit with this provider/department: Yes 10/06/24 Requested Prescriptions Pending Prescriptions Disp Refills albuterol (PROVENTIL) 2.5 mg /3 mL (0.083 %) nebulizer solution 360 mL 10 albuterol HFA (PROVENTIL HFA, VENTOLIN HFA) 90 mcg/actuation inhaler 6.7 g 10 tiotropium-olodaterol (STIOLTO RESPIMAT) 2.5-2.5 mcg/actuation inhaler 12 g Kae Langston September 14, 2024 8:35 AM [facility] Telephone encounter Note * Telephone Encounter - LangstonJessie - 09/14/2024 8:29 AM EST SPOUSE CALLED TO REPORT THAT THEIR SONE WHO LIVED OUT OF STATE HAS UNEXPECTADLY. PATIENT IS DUE TO MEDICATIONS PRESCRIBED BY DR. MCGRATH BUT SPOUSE WAS UNSURE AT THE TIME WHICH ONES NEEDED REFILLS. PSS PENDED MEDICATIONS PRESCRIBED BY DR. MCGRATH IF CLINICAL COULD REVIEW AND REMOVE/ADD WHAT IS NECESSARY. PATIENT HAS BEEN R/S WITH RIGO FOR 6 MONTH F/U ON 10/06/24. Prescription Refill Information The patient has been identified by name and date of : Yes Caregiver verified no other encounters exist for this prescription request: Yes Caregiver confirmed with patient/requestor that no other refills are due, in the near future, with this provider at this time: Yes The last office visit in the department: 03/23/24 Does the patient have a future office visit with this provider/department: Yes 10/06/24 Requested Prescriptions Pending Prescriptions Disp Refills albuterol (PROVENTIL) 2.5 mg /3 mL (0.083 %) nebulizer solution 360 mL 10 albuterol HFA (PROVENTIL HFA, VENTOLIN HFA) 90 mcg/actuation inhaler 6.7 g 10 tiotropium-olodaterol (STIOLTO RESPIMAT) 2.5-2.5 mcg/actuation inhaler 12 g 3 Jessie Langston September 14, 2024 8:35 AM [facility]02-04-2025 Telephone encounter Note* Telephone Encounter - Therese Paz LPN - 09/08/2024 3:51 PM EST called to report Depakote ws not cancelled at the pharmacy and the pharmacy still showed pt was on this. I called the pharmacy and got it cancelled. Left a detailed message for on 09-08-24 @ 3:52 pm that medication above was cancelled at the pharmacy. Therese Paz LPN [address]04-2025 Miscellaneous Notes* Telephone Encounter - Therese Paz LPN - 09/08/2024 3:51 PM EST called to report Depakote ws not cancelled at the pharmacy and the pharmacy still showed pt was on this. I called the pharmacy and got it cancelled. Left a detailed message for on 09-08-24 @ 3:52 pm that medication above was cancelled at the pharmacy. Therese Paz LPN documented in [facility]Pro[facility]01-31-2025 Telephone encounter Note * Telephone Encounter - Amaya Blanco - 09/04/2024 3:14 PM EST Prescription Refill Information The patient has been identified by name and date of : Yes Caregiver verified no other encounters exist for this prescription request: Yes Caregiver confirmed with patient/requestor that no other refills are due, in the near future, with this provider at this time: Yes The last office visit in the department: Does the patient have a future office visit with this provider/department: Yes Requested Prescriptions Pending Prescriptions Disp Refills losartan (COZAAR) 25 mg tablet 90 tablet 3 Sig: Take 1 tablet by mouth once daily. Amaya Fry September 04, 2024 3:14 PM [facility]01-31-2025 Miscellaneous Notes* Telephone Encounter - Amaya Blanco - 09/04/2024 3:14 PM EST Prescription Refill Information The patient has been identified by name and date of : Yes Caregiver verified no other encounters exist for this prescription request: Yes Caregiver confirmed with patient/requestor that no other refills are due, in the near future, with this provider at this time: Yes The last office visit in the department: Does the patient have a future office visit with this provider/department: Yes Requested Prescriptions Pending Prescriptions Disp Refills losartan (COZAAR) 25 mg tablet 90 tablet 3 Sig: Take 1 tablet by mouth once daily. Amaya Fry September 04, 2024 3:14 PM * Telephone Encounter - Amaya Blanco - 09/04/2024 3:13 PM EST Please disregards this medication refill it grab the wrong medication. * Telephone Encounter - Amaya Blanco - 09/04/2024 3:10 PM EST Prescription Refill Information The patient has been identified by name and date of : Yes Caregiver verified no other encounters exist for this prescription request: Yes Caregiver confirmed with patient/requestor that no other refills are due, in the near future, with this provider at this time: Yes The last office visit in the department: Does the patient have a future office visit with this provider/department: Yes Requested Prescriptions Pending Prescriptions Disp Refills LORazepam (ATIVAN) 1 mg tablet 90 tablet 2 Sig: Take 1-2 tablets by mouth three times a day as needed for anxiety for up to 45 days. Take 1-2 pills three times a day Amaya Fry September 04, 2024 3:12 PM documented in this encounterProtest[facility] Hospital01-31-2025 Telephone encounter Note * Telephone Encounter - Amaya Blanco - 09/04/2024 3:13 PM EST Please disregards this medication refill it grab the wrong medication. [facility]01-31-2025 Telephone encounter Note* Telephone Encounter - Amaya Blanco - 09/04/2024 3:10 PM EST Prescription Refill Information The patient has been identified by name and date of : Yes Caregiver verified no other encounters exist for this prescription request: Yes Caregiver confirmed with patient/requestor that no other refills are due, in the near future, with this provider at this time: Yes The last office visit in the department: Does the patient have a future office visit with this provider/department: Yes Requested Prescriptions Pending Prescriptions Disp Refills LORazepam (ATIVAN) 1 mg tablet 90 tablet 2 Sig: Take 1-2 tablets by mouth three times a day as needed for anxiety for up to 45 days. Take 1-2 pills three times a day Amaya Fry September 04, 2024 3:12 PM [facility]01-30-2025 NoteHNO ID: [id number] Author: YESSI VALDEZ MD Service: ? Author Type: Physician Type: Progress Notes Filed: 09/09/2024 16:10 Note Text: [facility] Patient Name: Afshin ELLIS Date of : 1955 Referring Provider: Jessie Harmon [address] [facility] [id number] INITIAL EPILEPSY CLINIC NOTE 09/03/2024 2:00 PM CHIEF COMPLAINT: New Patient HISTORY OF PRESENT ILLNESS Mr. Zee is a 69 year old male seen in [facility] for initial consultation. 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 He requires assistance with activities of daily living. Patient has right sided weakness (UE > LE) and expressive > receptive aphasia since the stroke. Patient established care with a neurologist in May 2024. At the time, per chart review patient's had reported episodes of staring where he would be responsive when called. The neurologist had ordered an EEG which revealed left temporal sharp waves max at F7-T7. He was placed on levetiracetam 500 mg twice daily. Subsequently, he was admitted to the hospital and diagnosed with pneumonia. There was an episode prior to hospital admission reported as staring off with no response to stimuli when prompted by . While in the hospital, he reported had a number of confusional episodes. He underwent repeat imaging and EEG in the hospital which was reportedly unrevealing and not epileptiform. He was then discharged from hospital. There were concerns about mood side effects from Levetiracetam (LEV) and he was placed on valproate (VPA) which led to fatigability and they self discontinued the medication. He is currently on no ASMs. He was recommended to try clobazam (CLB) but never tried it. They deny any more staring episodes since hospital discharge, deny any abnormal involuntary activity, episodes of waking up with blood on pillow or urinary incontinence. Total # of Current Anti-seizure Medications: 0 Side Effects to Current Anti-seizure Medications: Seizure Frequency at First Visit: 1 per 6 months Longest Seizure-free Interval: Number of seizure types: 1 Hx of generalized tonic-clonic seizures: No Tongue bite: No Urine or Bowel Incontinence: No Triggers: unknown Postictal Deficits: No Memory complaints: unknown Status Epilepticus or clusters: No Postictal Agitation: No Significant Injuries from Seizures: none Seizure-related driving accidents: No Driving: No Lives Alone: No ED Visits in Last 3 Months: Yes Hospitalizations in Last 3 Months: Yes Current Vocation: not working CURRENT OUTPATIENT ANTISEIZURE MEDICATIONS (as of the start of the encounter) divalproex DR (DEPAKOTE) 500 mg EC tablet take 1 tablet by mouth twice a day levETIRAcetam (KEPPRA) 250 mg tablet levETIRAcetam (KEPPRA) 500 mg tablet Take 1 tablet by mouth two times a day. Prior Anti-seizure Therapies: Trial Adequacy: Max Daily Dose Achieved: Side Effects: Effectiveness: Comments: Levetiracetam 1000 Psychiatric Valproate Systemic Comorbidities: Major: Cerebrovascular accident Cerebrovascular accident: Ischemic Minor: Obstructive Sleep Apnea, Hemiparesis, Hypertension Episode Description: SEIZURE TYPE 1: Staring Onset: May 2024? Aura: not sure Description: Staring off with no response to stimuli Unknown duration or frequency. Loss of awareness: Duration: Frequency: Last occurred: yes Patient Entered Data: EPILEPSY SCORE 05/29/2024 3:42 PM 05/29/2024 3:40 PM 05/29/2024 3:37 PM PHQ-9 SCORE - - 14 [Moderate Depression] JESS 2 SCORE - - - JESS 7 SCORE - - - QOLIE-10 SCORE (0=worst; 100=best QoL - higher scores represent better function) - - - LSSS SCORE (0- no seizures 100- most severe possible seizures) - - - C-SSRS SCREEN - - - On average, how many hours of sleep do you get in a 24-hour period? - - - PROMIS Sleep Disturbance T-SCORE 43 [within normal limits] - - Have you been diagnosed with Sleep Apnea? - Yes - Seizure risk factors: Brain Tumor No DIRECTOR OF ENV[employer]ONMENTAL SERVICES Infections No Developmental Delay No Family history of seizures No Febrile Seizure No Complications No Stroke Yes Traumatic Brain Injury No Previous Epilepsy Evaluations EEG 06/15/24, [facility]: Left temporal sharp waves Other caregivers: Primary Care Provider: Jaci Arryoo MD Current Outpatient Medications Medication Sig losartan (COZAAR) 25 mg tablet Ta (more content not included)...[facility]01-30-2025 History of Present illness Narrative* Yessi Valdez MD - 09/03/2024 4:17 PM EST [facility] Patient Name: Afshin ELLIS Date of : 1955 Referring Provider: Jessie Harmon [address] [facility] [address] INITIAL EPILEPSY CLINIC NOTE 09/03/2024 2:00 PM CHIEF COMPLAINT: New Patient HISTORY OF PRESENT ILLNESS Mr. Zee is a 69 year old male seen in [facility] for initial consultation. 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 He requires assistance with activities of daily living. Patient has right sided weakness (UE > LE) and expressive > receptive aphasia since the stroke. Patient established care with a neurologist in May 2024. At the time, per chart review patient's had reported episodes of staring where he would be responsive when called. The neurologist had ordered an EEG which revealed left temporal sharp waves max at F7-T7. He was placed on levetiracetam 500 mg twice daily. Subsequently, he was admitted to the hospital and diagnosed with pneumonia. There was an episode prior to hospital admission reported as staring off with no response to stimuli when prompted by . While in the hospital, he reported had a number of confusional episodes. He underwent repeat imaging and EEG in the hospital which was reportedly unrevealing and not epileptiform. He was then discharged from hospital. There were concerns about mood side effects from Levetiracetam (LEV) and he was placed on valproate(VPA) which led to fatigability and they self discontinued the medication. He is currently on no ASMs. He was recommended to try clobazam (CLB) but never tried it. They deny any more staring episodes since hospital discharge, deny any abnormal involuntary activity, episodes of waking up with blood on pillow or urinary incontinence. Total # of Current Anti-seizure Medications: 0 Side Effects to Current Anti-seizure Medications: Seizure Frequency at First Visit: 1 per 6 months Longest Seizure-free Interval: Number of seizure types: 1 Hx of generalized tonic-clonic seizures: No Tongue bite: No Urine or Bowel Incontinence: No Triggers: unknown Postictal Deficits: No Memory complaints: unknown Status Epilepticus or clusters: No Postictal Agitation: No Significant Injuries from Seizures: none Seizure-related driving accidents: No Driving: No Lives Alone: No ED Visits in Last 3 Months: Yes Hospitalizations in Last 3 Months: Yes Current Vocation: not working CURRENT OUTPATIENT ANTISEIZURE MEDICATIONS (as of the start of the encounter) divalproex DR (DEPAKOTE) 500 mg EC tablet take 1 tablet by mouth twice a day levETIRAcetam (KEPPRA) 250 mg tablet levETIRAcetam (KEPPRA) 500 mg tablet Take 1 tablet by mouth two times a day. Prior Anti-seizure Therapies: Trial Adequacy: Max Daily Dose Achieved: Side Effects: Effectiveness: Comments: Levetiracetam 1000 Psychiatric Valproate Systemic Comorbidities: Major: Cerebrovascular accident Cerebrovascular accident: Ischemic Minor: Obstructive Sleep Apnea, Hemiparesis, Hypertension Episode Description: SEIZURE TYPE 1: Staring Onset: May 2024? Aura: not sure Description: Staring off with no response to stimuli Unknown duration or frequency. Loss of awareness: Duration: Frequency: Last occurred: yes Patient Entered Data: EPILEPSY SCORE 05/29/2024 3:42 PM 05/29/2024 3:40 PM 05/29/2024 3:37 PM PHQ-9 SCORE - - 14 [Moderate Depression] JESS 2 SCORE - - - JESS 7 SCORE - - - QOLIE-10 SCORE (0=worst; 100=best QoL - higher scores represent better function) - - - LSSS SCORE (0- no seizures 100- most severe possible seizures) - - - C-SSRS SCREEN - - - On average, how many hours of sleep do you get in a 24-hour period? - - - PROMIS Sleep Disturbance T-SCORE 43 [within normal limits] - - Have you been diagnosed with Sleep Apnea? - Yes - Seizure risk factors: Brain Tumor No [employer]MENT[employer] Infections No Developmental Delay No Family history of seizures No Febrile Seizure No Complications No Stroke Yes Traumatic Brain Injury No Previous Epilepsy Evaluations EEG 06/15/24, [facility]: Left temporal sharp waves Other caregivers: Primary Care Provider: Jaci Arroyo MD Current Outpatient Medications Medication Sig losartan (COZAAR) 25 mg tablet Take 1 tablet by mouth once daily. pregabalin (LYRICA) 25 mg capsule Take 25 mg at bedtime for 1 week followed by 25 mg twice daily for 1 week followed by 25 mg in the morning and 50 mg at bedtime for 1 week followed by 50 mg twice daily for 1 week followed by 50 mg in the morning and 75 mg at bedtime for 1 week followed by 75 mg twice daily. baclofen 10 mg tablet Take 1 tablet by mouth three times a day. amLODIPine (NORVASC) 10 mg tablet Take 0.5 tablets by mouth two times a day. Take 1/2 tablet twice daily traZODone (DESYREL) 100 mg tablet Take 1 tablet by mouth daily at bedtime. albuterol HFA (PROVENTIL HFA, VENTOLIN HFA) 90 mcg/actuation inhaler INHALE 2 PUFFS INTO THE LUNGS EVERY 4 HOURS NEEDED multivitamin tablet Take 1 tablet by mouth once daily. famotidine (PEPCID) 20 mg tablet Take 20 mg by mouth once daily. hydroCHLOROthiazide 12.5 mg tablet Take 1 tablet by mouth every morning. clotrimazole-betamethasone (LOTRISONE) cream Apply to affected area two times a day. OXYGEN, HOME THERAPY, 4 L/min by Nasal Cannula route as directed. busPIRone (BUSPAR) 15 mg tablet take 1 tablet by mouth three times a day STIOLTO RESPIMAT 2.5-2.5 mcg/actuation inhaler inhale 2 puffs by mouth as directed once daily LORazepam (ATIVAN) 1 mg tablet Take 1-2 tablets by mouth three times a day as needed for anxiety for up to 45 days. Take 1-2 pills three times a day potassium chloride (K-TAB) 10 mEq tablet Take 2 tablets by mouth three times a day. albuterol (PROVENTIL) 2.5 mg /3 mL (0.083 %) nebulizer solution INHALE 1 VIAL VIA NEBULIZER EVERY 4HOURS NEEDED FOR WHEEZING/SHORTNESS OF BREATH. USE OVER 5-15 MINUTES clopidogrel (PLAVIX) 75 mg tablet Take 75 mg by mouth once daily. ezetimibe (ZETIA) 10 mg tablet Take 1 tablet by mouth once daily. ferrous sulfate (FEROSUL) 325 mg (65 mg iron) tablet Take 1 tablet by mouth two times a day. amiodarone (PACERONE) 100 mg tablet TAKE 1 TABLET BY MOUTH ONCE DAILY *DO NOT TAKE IF HEART RATE ISLESS THAN 40* atorvastatin (LIPITOR) 40 mg tablet take 1 tablet by mouth once daily escitalopram oxalate (LEXAPRO) 20 mg tablet take 1 tablet by mouth once daily apixaban (ELIQUIS) 5 mg tab(s) take 1 tablet by mouth twice daily metoprolol tartrate, short acting, (LOPRESSOR) 25 mg tablet TAKE 1/2 TABLET BY MOUTH TWICE DAILY. HOLD IF HEART RATE IS LESS THAN 60 acetaminophen (TYLENOL EXTRA STRENGTH) 500 mg tablet Take 2 tablets by mouth three times a day as needed for pain. fluticasone (FLONASE) 50 mcg/actuation nasal spray Use 1 Almont in each nostril twice daily. Rinse mouth after use. Blood Pressure Monitor kit 1 application twice daily. Measure patient for correct size. Patient needs cuff for left arm readings. COMPOUNDED PRESCRIPTION Articulating AFO foot brace for right leg. Send to [employer]. Dx: I63.9 COMPOUNDED PRESCRIPTION EMBER WALKER DX I63.9 weight 162 # No current facility-administered medications for this visit. ALLERGIES Allergen Reactions Lisinopril Swelling, Angioedema Lip swelling after starting lisinopril. Doxycycline GI Upset, Other: See Comments GI upset (stomach ache/cramping/diarrhea) and splotchy face Sulfa (Sulfonamide * Hives Zpak [Azithromycin] Hives PAST MEDICAL HISTORY Diagnosis Date Acute cerebral infarction (HCC) left LEANN (acute kidney injury) (HCC) Anemia Aneurysm (HCC) Anxiety state Atrial fibrillation (HCC) 11/2016 Balanitis CAD (coronary artery disease) Carotid stenosis COPD (chronic obstructive pulmonary disease) (HCC) Dysphasia Emphysema lung (HCC) Epilepsy (HCC) History of blood transfusion 03/2023 Hypertension Hypoxia 03/2023 DARON (obstructive sleep apnea) PVD (peripheral vascular disease) ([facility]) Respiratory failure (HCC) hypoxic-ventilator dependent Stroke (cerebrum) (HCC) Tobacco abuse PAST SURGICAL HISTORY Procedure Laterality Date ANKLE SURGERY HX Right 08/07/2023 Dr. Kim. Right ankle ORIF due to fracture CABG CONSULT 10/30/2016 multi vessel COLONOSCOPY SCREENING 04/10/2023 EGD W/O BRSH SPEC VARICIES INJ 04/11/2023 EGD W/O BRSH SPEC VARICIES INJ 04/10/2023 HEART CATHETERIZATION 09/17/2016 PAST SURGICAL HISTORY OF 2017 Aneurysm and stent surgery related to stroke TRACHEOSTOMY HX FAMILY HISTORY Problem Relation Age of Onset Heart Mother CO in her 70s, pacemaker Diabetes Mother Stroke Father other (AAA) Father other (CAD) Brother Hypertension Brother SOCIAL HISTORY: -Lives in [place], [place] -Patient lives alone? No -Vocation: not working -Cigarette, alcohol, substance use: none -Functional status: dependent for all activities of daily living -Patient driving? No Review of Systems negative VITAL SIGNS: BP 128/64 (BP Site: Left Arm, BP Position: Sitting, BP Cuff Size: Regular Adult) Pulse (!) 55 Ht 177.8 cm (5' 10) Wt 84.4 kg (186 lb) SpO2 92% BMI 26.69 kg/m General Examination: General Exam deferred IMPRESSION: 69 year old man with history of left hemispheric stroke with residual right hemiparesis and aphasiawith reported dialeptic episodes, are concerning for epileptic seizures. Semiology: Dialepsis EEG ([facility]): Left temporal SW Co-morbidities: Stroke in setting of left carotid artery occlusion with residual right sided hemiplegia and aphasia, atrial fibrillation, CABG x 5, DARON, emphysema, PVD PLAN: - Start Pregabalin slow titration provided with goal dose of 75 mg twice daily - Seizure precautions reviewed - Patient does not drive - Follow up in 8 weeks Data reviewed as above including: electronic medical record, MRI images Education The following issues were discussed with the patient on this visit and written instructions provided as below- Seizure precautions and safety, seizure first aide, when to seek emergency care. Counseling was provided to the patient that missed medications, addition of some new medications, use of alcohol or other substances, and sleep deprivation can lower the seizure threshold. I discussed the risk of depression and psychological comorbidities in patients with epilepsy and when to seek help as well as all anti-seizure medication level medications which can increase risk forsuicidality. Patient was given my clinic contact information. Medical Management The possibility of serious and adverse reactions were discussed in detail as well as proper use of medication. I discussed that not taking this medication as directed could worsen seizures and can bedangerous. I discussed the risks, benefits and alternatives of the medical plan with the patient. Questions were answered. The patient agreed with the plan as discussed. FOLLOW-UP: Return in about 2 months (around 11/01/2024) for virtual. I spent a total of 60 minutes on the date of the service which included: [id number] patient care obtaining and/or reviewing separately obtained history performing a medically appropriate examination counseling and educating the patient/family/caregiver ordering medications, tests, or procedures communicating results to the patient/family/caregiver [facility] STAFF: TEACHING PHYSICIAN NOTE OF PERSONAL INVOLVEMENT IN CARE I have personally reviewed all aspects of the history and physical examination obtained and documented by the Fellow. Lord components of the physical exam confirmed. I have discussed the case and management of the patient's care with the Fellow and I agree with theassessment and plan as documented. History of left hemispheric stroke with residual right hemiparesis and expressive aphasia in 2017 Recently witnessed episodes of unresponsiveness, re admitted and acute stroke was r/o EEG showed SW left fronto temporal, patient was started on ASM, then switched due to side effects and currently off ASM Discussed with the who is his POA the risk of recurrent seizures, prefers not to use ASM.Discussed the option to repeat EEG or VEEG , however if EEG is normal, ASM is recommended, give thehistory that provided. Patient expressed that he wanted ASM by answering yes. stated that patient prefers to start ASM and not to have further testing. Lyrica will be started, side effects discussed Yessi Becerra M.D * Joycelyn Woodruff MD - 09/03/2024 2:09 PM EST [facility] Patient Name: Afshin ELLIS Date of : 1955 Referring Provider: Jessie Harmon [address] [facility] [place] [place] [address] INITIAL EPILEPSY CLINIC NOTE 09/03/2024 2:00 PM CHIEF COMPLAINT: New Patient HISTORY OF PRESENT ILLNESS Mr. Zee is a 69 year old male seen in [facility] for initial consultation. 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 He requires assistance with activities of daily living. Patient has right sided weakness (UE > LE) and expressive > receptive aphasia since the stroke. Patient established care with a neurologist in May 2024. At the time, per chart review patient's had reported episodes of staring where he would be responsive when called. The neurologist had ordered an EEG which revealed left temporal sharp waves max at F7-T7. He was placed on levetiracetam 500 mg twice daily. Subsequently, he was admitted to the hospital and diagnosed with pneumonia. There was an episode prior to hospital admission reported as staring off with no response to stimuli when prompted by . While in the hospital, he reported had a number of confusional episodes. He underwent repeat imaging and EEG in the hospital which was reportedly unrevealing and not epileptiform. He was then discharged from hospital. There were concerns about mood side effects from Levetiracetam (LEV) and he was placed on valproate(VPA) which led to fatigability and they self discontinued the medication. He is currently on no ASMs. He was recommended to try clobazam (CLB) but never tried it. They deny any more staring episodes since hospital discharge, deny any abnormal involuntary activity, episodes of waking up with blood on pillow or urinary incontinence. Total # of Current Anti-seizure Medications: 0 Side Effects to Current Anti-seizure Medications: Seizure Frequency at First Visit: 1 per 6 months Longest Seizure-free Interval: Number of seizure types: 1 Hx of generalized tonic-clonic seizures: No Tongue bite: No Urine or Bowel Incontinence: No Triggers: unknown Postictal Deficits: No Memory complaints: unknown Status Epilepticus or clusters: No Postictal Agitation: No Significant Injuries from Seizures: none Seizure-related driving accidents: No Driving: No Lives Alone: No ED Visits in Last 3 Months: Yes Hospitalizations in Last 3 Months: Yes Current Vocation: not working CURRENT OUTPATIENT ANTISEIZURE MEDICATIONS (as of the start of the encounter) divalproex DR (DEPAKOTE) 500 mg EC tablet take 1 tablet by mouth twice a day levETIRAcetam (KEPPRA) 250 mg tablet levETIRAcetam (KEPPRA) 500 mg tablet Take 1 tablet by mouth two times a day. Prior Anti-seizure Therapies: Trial Adequacy: Max Daily Dose Achieved: Side Effects: Effectiveness: Comments: Levetiracetam 1000 Psychiatric Valproate Systemic Comorbidities: Major: Cerebrovascular accident Cerebrovascular accident: Ischemic Minor: Obstructive Sleep Apnea, Hemiparesis Episode Description: SEIZURE TYPE 1: Staring Onset: May 2024? Aura: not sure Description: Staring off with no response to stimuli Unknown duration or frequency. Loss of awareness: Duration: Frequency: Last occurred: yes Patient Entered Data: EPILEPSY SCORE 05/29/2024 3:42 PM 05/29/2024 3:40 PM 05/29/2024 3:37 PM PHQ-9 SCORE - - 14 [Moderate Depression] JESS 2 SCORE - - - JESS 7 SCORE - - - QOLIE-10 SCORE (0=worst; 100=best QoL - higher scores represent better function) - - - LSSS SCORE (0- no seizures 100- most severe possible seizures) - - - C-SSRS SCREEN - - - On average, how many hours of sleep do you get in a 24-hour period? - - - PROMIS Sleep Disturbance T-SCORE 43 [within normal limits] - - Have you been diagnosed with Sleep Apnea? - Yes - Seizure risk factors: Brain Tumor Unanswered DIRECTOR OF ENVIRONMENTAL SERVICES Infections Unanswered Developmental Delay Unanswered Family history of seizures Unanswered Febrile Seizure Unanswered Complications Unanswered Stroke Yes Traumatic Brain Injury Unanswered Previous Epilepsy Evaluations EEG 06/15/24, [facility]: Left temporal sharp waves Other caregivers: Primary Care Provider: Jaci Arroyo MD Current Outpatient Medications Medication Sig losartan (COZAAR) 25 mg tablet Take 1 tablet by mouth once daily. pregabalin (LYRICA) 25 mg capsule Take 25 mg at bedtime for 1 week followed by 25 mg twice daily for 1 week followed by 25 mg in the morning and 50 mg at bedtime for 1 week followed by 50 mg twice daily for 1 week followed by 50 mg in the morning and 75 mg at bedtime for 1 week followed by 75 mg twice daily. baclofen 10 mg tablet Take 1 tablet by mouth three times a day. amLODIPine (NORVASC) 10 mg tablet Take 0.5 tablets by mouth two times a day. Take 1/2 tablet twice daily traZODone (DESYREL) 100 mg tablet Take 1 tablet by mouth daily at bedtime. albuterol HFA (PROVENTIL HFA, VENTOLIN HFA) 90 mcg/actuation inhaler INHALE 2 PUFFS INTO THE LUNGS EVERY 4 HOURS NEEDED multivitamin tablet Take 1 tablet by mouth once daily. famotidine (PEPCID) 20 mg tablet Take 20 mg by mouth once daily. hydroCHLOROthiazide 12.5 mg tablet Take 1 tablet by mouth every morning. clotrimazole-betamethasone (LOTRISONE) cream Apply to affected area two times a day. OXYGEN, HOME THERAPY, 4 L/min by Nasal Cannula route as directed. busPIRone (BUSPAR) 15 mg tablet take 1 tablet by mouth three times a day STIOLTO RESPIMAT 2.5-2.5 mcg/actuation inhaler inhale 2 puffs by mouth as directed once daily LORazepam (ATIVAN) 1 mg tablet Take 1-2 tablets by mouth three times a day as needed for anxiety for up to 45 days. Take 1-2 pills three times a day potassium chloride (K-TAB) 10 mEq tablet Take 2 tablets by mouth three times a day. albuterol (PROVENTIL) 2.5 mg /3 mL (0.083 %) nebulizer solution INHALE 1 VIAL VIA NEBULIZER EVERY 4HOURS NEEDED FOR WHEEZING/SHORTNESS OF BREATH. USE OVER 5-15 MINUTES clopidogrel (PLAVIX) 75 mg tablet Take 75 mg by mouth once daily. ezetimibe (ZETIA) 10 mg tablet Take 1 tablet by mouth once daily. ferrous sulfate (FEROSUL) 325 mg (65 mg iron) tablet Take 1 tablet by mouth two times a day. amiodarone (PACERONE) 100 mg tablet TAKE 1 TABLET BY MOUTH ONCE DAILY *DO NOT TAKE IF HEART RATE ISLESS THAN 40* atorvastatin (LIPITOR) 40 mg tablet take 1 tablet by mouth once daily escitalopram oxalate (LEXAPRO) 20 mg tablet take 1 tablet by mouth once daily apixaban (ELIQUIS) 5 mg tab(s) take 1 tablet by mouth twice daily metoprolol tartrate, short acting, (LOPRESSOR) 25 mg tablet TAKE 1/2 TABLET BY MOUTH TWICE DAILY. HOLD IF HEART RATE IS LESS THAN 60 acetaminophen (TYLENOL EXTRA STRENGTH) 500 mg tablet Take 2 tablets by mouth three times a day as needed for pain. fluticasone (FLONASE) 50 mcg/actuation nasal spray Use 1 Almont in each nostril twice daily. Rinse mouth after use. Blood Pressure Monitor kit 1 application twice daily. Measure patient for correct size. Patient needs cuff for left arm readings. COMPOUNDED PRESCRIPTION Articulating AFO foot brace for right leg. Send to [employer]. Dx: I63.9 COMPOUNDED PRESCRIPTION EMBER WALKER DX I63.9 weight 162 # No current facility-administered medications for this visit. ALLERGIES Allergen Reactions Lisinopril Swelling, Angioedema Lip swelling after starting lisinopril. Doxycycline GI Upset, Other: See Comments GI upset (stomach ache/cramping/diarrhea) and splotchy face Sulfa (Sulfonamide * Hives Zpak [Azithromycin] Hives PAST MEDICAL HISTORY Diagnosis Date Acute cerebral infarction (HCC) left LEANN (acute kidney injury) (HCC) Anemia Aneurysm (HCC) Anxiety state Atrial fibrillation (HCC) 11/2016 Balanitis CAD (coronary artery disease) Carotid stenosis COPD (chronic obstructive pulmonary disease) (HCC) Dysphasia Emphysema lung (HCC) History of blood transfusion 03/2023 Hypertension Hypoxia 03/2023 DARON (obstructive sleep apnea) PVD (peripheral vascular disease) (HCC) Respiratory failure (HCC) hypoxic-ventilator dependent Stroke (cerebrum) (HCC) Tobacco abuse PAST SURGICAL HISTORY Procedure Laterality Date ANKLE SURGERY HX Right 08/07/2023 Dr. Kim. Right ankle ORIF due to fracture CABG CONSULT 10/30/2016 multi vessel COLONOSCOPY SCREENING 04/10/2023 EGD W/O BRSH SPEC VARICIES INJ 04/11/2023 EGD W/O BRSH SPEC VARICIES INJ 04/10/2023 HEART CATHETERIZATION 09/17/2016 PAST SURGICAL HISTORY OF 2017 Aneurysm and stent surgery related to stroke TRACHEOSTOMY HX FAMILY HISTORY Problem Relation Age of Onset Heart Mother CO in her 70s, pacemaker Diabetes Mother Stroke Father other (AAA) Father other (CAD) Brother Hypertension Brother SOCIAL HISTORY: -Lives in [place], [place] -Patient lives alone? No -Vocation: not working -Education: -Cigarette, alcohol, substance use: none -Functional status: dependent for all activities of daily living -Patient driving? No Review of Systems Unable to perform ROS: Medical condition VITAL SIGNS: BP 128/64 (BP Site: Left Arm, BP Position: Sitting, BP Cuff Size: Regular Adult) Pulse (!) 55 Ht 177.8 cm (5' 10) Wt 84.4 kg (186 lb) SpO2 92% BMI 26.69 kg/m General Examination: He is accompanied by his spouse Eli and karina Epstein. General: Awake, alert, no acute distress Neurological Exam Mental Status Alert, mimics, able to repeat few words. Palilalia Cranial Nerves Pupils reactive. Extraocular movements conjugate and full. No ptosis. No nystagmus. Face asymmetricon right. Motor Examination and Coordination RUE proximal 2/5, distal 0/5. RLE 3/5. Left UE and LE 4/5. Reflexes Deferred Sensation Not examined Gait Not examined IMPRESSION: 69 year old man with history of left hemispheric stroke with residual right hemiparesis and aphasiawith reported dialeptic episodes, are concerning for epileptic seizures. 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 Dialeptic Seizure Etiology: Other structural abnormality (Left hemispheric stroke) Associated Conditions: - Neurological (Cerebral Vascular Accident (CVA) Prior Stroke and Hemiplegia/hemiparesis) Previous Neurosurgery: None PLAN: - Start Pregabalin slow titration provided with goal dose of 75 mg twice daily - Seizure precautions reviewed - Patient does not drive - Follow up in 8 weeks Data reviewed as above including: electronic medical record, MRI images Education The following issues were discussed with the patient on this visit and written instructions provided as below- Seizure precautions and safety, seizure first aide, when to seek emergency care. Counseling was provided to the patient that missed medications, addition of some new medications, use of alcohol or other substances, and sleep deprivation can lower the seizure threshold. I discussed the risk of depression and psychological comorbidities in patients with epilepsy and when to seek help as well as all anti-seizure medication level medications which can increase risk forsuicidality. Patient was given my clinic contact information. Medical Management The possibility of serious and adverse reactions were discussed in detail as well as proper use of medication. I discussed that not taking this medication as directed could worsen seizures and can bedangerous. I discussed the risks, benefits and alternatives of the medical plan with the patient. Questions were answered. The patient agreed with the plan as discussed. FOLLOW-UP: Return in about 2 months (around 11/01/2024) for virtual. I spent a total of 60 minutes on the date of the service which included: [id number] patient care obtaining and/or reviewing separately obtained history performing a medically appropriate examination counseling and educating the patient/family/caregiver ordering medications, tests, or procedures communicating results to the patient/family/caregiver Joycelyn Woodruff MD cc: Primary Care Physician: Jaci Arroyo MD [address] [facility] [id number] Referring: Jessie Harmon [address] [facility] [id number] Patient: Mr. Afshin Zee [address] [facility] [address] [facility] [id number] documented in this encounterProtestant Hospital01-30-2025 Instructions* Patient Instructions* Joycelyn Woodruff MD - 09/03/2024 2:58 PM EST Thank you for choosing the [facility] and allowing me to serve as your physician. It was a pleasure to see you today. Please do not hesitate to call the clinic with any questions/concerns and/or message on Tujiat whichever is most convenient for you. Please start taking the following medication: Week 1: Take 25 mg at bedtime Week 2: 25 mg twice daily Week 3: 25 mg in the morning and 50 mg at bedtime Week 4: 50 mg twice daily Week 5: 50 mg in the morning and 75 mg at bedtime Week 6: 75 mg twice daily thereafter. Doctor: Dr. Woodruff/Dr. Sparrow Office number: [phone] Office hours: Saturday through Saturday 8am to 5pm. Call the office to report: Call OR send a Tujiat message: Concerns about breakthrough seizures Change in seizure frequency New medication side effect or concern Missed medication dose Worsening or severe depression Urgent medication refill requests - needing new supply within 72 hours Non-urgent or routine medication refill requests Requesting a letter Requesting paperwork completion Report a breakthrough seizure Non-urgent clinical updates Non-urgent clinical questions (e.g. concern regarding lab or test results) Note: [employer] messages are not monitored after 5 PM on weekdays, weekends or holidays. [employer] messages will be addressed within 3 business days. If you have an urgent medical concern that needs to be addressed before 3 business days, please call the office. Please call 911 or proceed to nearest Emergency Room if you are experiencing any of the following issues: Status epilepticus (continuous seizure or multiple seizures without enough time to recover between them) Severe medication reaction (hives, itching or rash) Sudden onset of mental status changes Suicidal thoughts or plan to harm yourself or others Sudden onset of chest pain or shortness of breath Sudden onset of possible stroke symptoms (loss of balance, eye or face drooping, arm weakness, speech difficulty) General Seizure safety precautions: No bathing or swimming unsupervised, no use of heavy machinery, no heavy lifting (over 50lbs), no use of sharp moving objects (power tools) or open flames, avoid heights or ladders. Joycelyn Woodruff MD [facility] [place] [address] [place] [address] Office Fax number: [phone] documented in this encounterProtestant Hospital01-30-2025 NoteHNO ID: [id number] Author: JOYCELYN WOODRUFF MD Service: ? Author Type: Fellow Type: Progress Notes Filed: 09/09/2024 16:10 Note Text: [facility] Patient Name: Afshin ELLIS Date of : 1955 Referring Provider: Jessie Harmon [address] [place] [id number] INITIAL EPILEPSY CLINIC NOTE 09/03/2024 2:00 PM CHIEF COMPLAINT: New Patient HISTORY OF PRESENT ILLNESS Mr. Zee is a 69 year old male seen in [facility] for initial consultation. 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 He requires assistance with activities of daily living. Patient has right sided weakness (UE > LE) and expressive > receptive aphasia since the stroke. Patient established care with a neurologist in May 2024. At the time, per chart review patient's had reported episodes of staring where he would be responsive when called. The neurologist had ordered an EEG which revealed left temporal sharp waves max at F7-T7. He was placed on levetiracetam 500 mg twice daily. Subsequently, he was admitted to the hospital and diagnosed with pneumonia. There was an episode prior to hospital admission reported as staring off with no response to stimuli when prompted by . While in the hospital, he reported had a number of confusional episodes. He underwent repeat imaging and EEG in the hospital which was reportedly unrevealing and not epileptiform. He was then discharged from hospital. There were concerns about mood side effects from Levetiracetam (LEV) and he was placed on valproate (VPA) which led to fatigability and they self discontinued the medication. He is currently on no ASMs. He was recommended to try clobazam (CLB) but never tried it. They deny any more staring episodes since hospital discharge, deny any abnormal involuntary activity, episodes of waking up with blood on pillow or urinary incontinence. Total # of Current Anti-seizure Medications: 0 Side Effects to Current Anti-seizure Medications: Seizure Frequency at First Visit: 1 per 6 months Longest Seizure-free Interval: Number of seizure types: 1 Hx of generalized tonic-clonic seizures: No Tongue bite: No Urine or Bowel Incontinence: No Triggers: unknown Postictal Deficits: No Memory complaints: unknown Status Epilepticus or clusters: No Postictal Agitation: No Significant Injuries from Seizures: none Seizure-related driving accidents: No Driving: No Lives Alone: No ED Visits in Last 3 Months: Yes Hospitalizations in Last 3 Months: Yes Current Vocation: not working CURRENT OUTPATIENT ANTISEIZURE MEDICATIONS (as of the start of the encounter) divalproex DR (DEPAKOTE) 500 mg EC tablet take 1 tablet by mouth twice a day levETIRAcetam (KEPPRA) 250 mg tablet levETIRAcetam (KEPPRA) 500 mg tablet Take 1 tablet by mouth two times a day. Prior Anti-seizure Therapies: Trial Adequacy: Max Daily Dose Achieved: Side Effects: Effectiveness: Comments: Levetiracetam 1000 Psychiatric Valproate Systemic Comorbidities: Major: Cerebrovascular accident Cerebrovascular accident: Ischemic Minor: Obstructive Sleep Apnea, Hemiparesis Episode Description: SEIZURE TYPE 1: Staring Onset: May 2024? Aura: not sure Description: Staring off with no response to stimuli Unknown duration or frequency. Loss of awareness: Duration: Frequency: Last occurred: yes Patient Entered Data: EPILEPSY SCORE 05/29/2024 3:42 PM 05/29/2024 3:40 PM 05/29/2024 3:37 PM PHQ-9 SCORE - - 14 [Moderate Depression] JESS 2 SCORE - - - JESS 7 SCORE - - - QOLIE-10 SCORE (0=worst; 100=best QoL - higher scores represent better function) - - - LSSS SCORE (0- no seizures 100- most severe possible seizures) - - - C-SSRS SCREEN - - - On average, how many hours of sleep do you get in a 24-hour period? - - - PROMIS Sleep Disturbance T-SCORE 43 [within normal limits] - - Have you been diagnosed with Sleep Apnea? - Yes - Seizure risk factors: Brain Tumor Unanswered DIRECTOR OF ENVIRONMENTAL SERVICES Infections Unanswered Developmental Delay Unanswered Family history of seizures Unanswered Febrile Seizure Unanswered Complications Unanswered Stroke Yes Traumatic Brain Injury Unanswered Previous Epilepsy Evaluations EEG 06/15/24, [facility]: Left temporal sharp waves Other caregivers: Primary Care Provider: Jaci Arroyo MD Current Outpatient Medications Medication Sig (more content not included)...[facility]01-28-2025 Telephone encounter Note* Telephone Encounter - Monica Cruz MA - 09/01/2024 3:00 PM EST No forms received other than the forms that were received in Dec and faxed to [employer]. May need to call for a new order form. [employer] ph: [phone]. pt was notify of below: Called [employer], spoke with rep who stated that the order for protective underwear was shipped out yesterday 08/31/24 and the other urinary incontinence supplies were shipped out on 08/27/24. Rep checked tracking and looks like she should be getting a delivery today. If pt is asking for something other than the typical urinary incontinence supplies he has been getting or the underwear then [employer] would need more information and order from the provider. Spoke with , she has called [employer] and notified the company that he only is getting pull ups through them. He is not currently using any other incontinence supplies at this time. Nothing more that office needs to do. Pt is to call [employer] when patient is in need of the pull ups. Monica Cruz MA [facility]01-28-2025 Miscellaneous Notes* Telephone Encounter - Monica Cruz MA - 09/01/2024 3:00 PM EST No forms received other than the forms that were received in Dec and faxed to [employer]. May need to call for a new order form. [facility] ph: [phone]. pt was notify of below: Called [employer], spoke with rep who stated that the order for protective underwear was shipped out yesterday 08/31/24 and the other urinary incontinence supplies were shipped out on 08/27/24. Rep checked tracking and looks like she should be getting a delivery today. If pt is asking for something other than the typical urinary incontinence supplies he has been getting or the underwear then [facility] would need more information and order from the provider. Spoke with , she has called [employer] and notified the company that he only is getting pull ups through them. He is not currently using any other incontinence supplies at this time. Nothing more that office needs to do. Pt is to call [facility] when patient is in need of the pull ups. Monica Cruz MA * Telephone Encounter - Jaci Arroyo MD - 09/01/2024 2:41 PM EST I do not see any forms on my desk, I assume these have been done? Jaci Arroyo MD * Telephone Encounter - Milan Brunson RN - 08/26/2024 4:20 PM EST reports patient is almost out of incontinent supplies, has a week of supplies left. Asking provider to please send information to [employer]. * Telephone Encounter - Rachel Buckley MA - 07/28/2024 9:05 AM EST Office received fax from [employer] regarding incontinence supplies. Type of form: Medical Necessity Form received via fax When form is completed, Fax form to [employer], Form has been forwarded to Physician Desk: Dr. Cruz Buckley MA * Telephone Encounter - Monica Cruz MA - 07/27/2024 10:35 AM EST Send order for incontinence supplies to [facility] fax number [phone] * Telephone Encounter - Dimple Agustin LPN - 07/27/2024 10:14 AM EST calls to report pt needs incontinence supplies. reports pt had an order from awhile ago but has started needing them every night. Pt's does not know who the DME company is. Per TE 03/11/23 - it shows a form was received in the office for incontinence supplies from [facility]. There is a fax number: [phone]. There isn't a phone number. reports pt uses large pull-up at bedtime. Heavier flow. is asking if office can send order to [facility]. Could not find scanned form in pt's chart. is requesting a call letting her know if office was able to get order to [facility]. reports pt does not have very many pull-ups left. Dimple Agustin LPN documented [facility]01-[facility] Telephone encounter Note * Telephone Encounter - Jaci Arroyo MD - 09/01/2024 2:41 PM EST I do not see any forms on my desk, I assume these have been done? Jaci Arroyo MD [facility]01-22-2025 Telephone encounter Note* Telephone Encounter - Milan Brunson RN - 08/26/2024 4:20 PM EST reports patient is almost out of incontinent supplies, has a week of supplies left. Asking provider to please send information to [facility]. [facility]01-10-2025 Telephone encounter Note* Telephone Encounter - Raiza John RN - 08/14/2024 12:16 PM EST Spouse (Eli) calls to request results of CT scan of head and neck from 06/01/[address]Shivanee Woodruff at [facility]. CT results were ordered by Dr. Nirali Castro and not completed at [facility]. Spouse believes testing was completed at [facility]. Recommended patient contact [facility] if that is where he had testing completed. Eli will contact Dr. Nirali Castro first and then [facility] if needed. Phone number given to Dr. Castro's office. Raiza John RN [facility]01-10-2025 Miscellaneous Notes* Telephone Encounter - Raiza John RN - 08/14/2024 12:16 PM EST Spouse (Eli) calls to request results of CT scan of head and neck from 06/01/[address]Shivanee Woodruff at [facility]. CT results were ordered by Dr. Nirali Castro and not completed at [facility]. Spouse believes testing was completed at [facility]. Recommended patient contact [facility] if that is where he had testing completed. Eli will contact Dr. Nirali Castro first and then [facility] if needed. Phone number given to Dr. Castro's office. Raiza John RN documented in this encounterProtestant Hospital01-10-2025 Telephone encounter Note * Telephone Encounter - Priya Guillaume LPN - 08/14/2024 10:26 AM EST Patient's notified. [facility]01-10-2025 Miscellaneous Notes* Telephone Encounter - Priya Guillaume LPN - 08/14/2024 10:26 AM EST Patient's notified. * Telephone Encounter - Mariano Beckman APRN.CNP - 08/14/2024 10:03 AM EST Please let the patient know that I have sent. The following approved medication requests have been transmitted electronically. Requested Prescriptions Pending Prescriptions Disp Refills baclofen 10 mg tablet 90 tablet 11 Sig: Take 1 tablet by mouth three times a day. Mariano Beckman APRN.ESTELLA * Telephone Encounter - Raiza John RN - 08/14/2024 9:44 AM EST The patient has been identified by name and date of : Yes Caregiver verified no other encounters exist for this prescription request: Yes Caregiver confirmed with patient/requestor that no other refills are due, in the near future, with this provider at this time: Yes The last office visit in the department: 07/13/2024 Does the patient have a future office visit with this provider/department: No Requested Prescriptions Pending Prescriptions Disp Refills baclofen 10 mg tablet 90 tablet 11 Sig: Take 1 tablet by mouth three times a day. Tete Mack calls to request prescription for baclofen be sent to [facility]. Current prescription was transferred from [facility] and only dispensing a 1/2 month supply at a time. [facility] told T[facility] that patient needed a new monthly prescription. 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 Spouse (Eli) requests a call back once sent to [facility] at [phone]. Raiza John RN August 14, 2024 9:44 AM documented in this encounterProtestant Hospital01-10-2025 Telephone encounter Note * Telephone Encounter - Mariano Beckman APRN.CNP - 08/14/2024 10:03 AM EST Please let the patient know that I have sent. The following approved medication requests have been transmitted electronically. Requested Prescriptions Pending Prescriptions Disp Refills baclofen 10 mg tablet 90 tablet 11 Sig: Take 1 tablet by mouth three times a day. Mariano Beckman APRN.CNP [facility]01-10-2025 Telephone encounter Note* Telephone Encounter - Raiza John RN - 08/14/2024 9:44 AM EST The patient has been identified by name and date of : Yes Caregiver verified no other encounters exist for this prescription request: Yes Caregiver confirmed with patient/requestor that no other refills are due, in the near future, with this provider at this time: Yes The last office visit in the department: 07/13/2024 Does the patient have a future office visit with this provider/department: No Requested Prescriptions Pending Prescriptions Disp Refills baclofen 10 mg tablet 90 tablet 11 Sig: Take 1 tablet by mouth three times a day. Tete Mack calls to request prescription for baclofen be sent to [facility]. Current prescription was transferred from [facility] and only dispensing a 1/2 month supply at a time. [facility] told [facility] that patient needed a new monthly prescription. 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 Spouse (Eli) requests a call back once sent to [facility] at [phone]. Raiza John RN August 14, 2024 9:44 AM [facility]01-03-2025 Telephone encounter Note* Telephone Encounter - Priya Guillaume LPN - 08/07/2024 10:23 AM EST Please see pharmacy note Pharmacy comment: Please authorize 90 days supply for the patient. [facility]01-03-2025 Miscellaneous Notes* Telephone Encounter - Priya Guillaume LPN - 08/07/2024 10:23 AM EST Please see pharmacy note Pharmacy comment: Please authorize 90 days supply for the patient. documented in this encounterProtestant Hospital12-26-2024 Telephone encounter Note * Telephone Encounter - Kassandra Okeefe RN - 07/30/2024 5:15 PM EST [facility] pharmacy calling for refills. Pt does not have a follow up appt scheduled. He was seen 07/13/24 by Jessie Harmon. Pharmacy is going to notify pt to follow up with us. When does pt need to be seen next? The patient has been identified by name and date of : Yes Caregiver verified no other encounters exist for this prescription request: Yes Caregiver confirmed with patient/requestor that no other refills are due, in the near future, with this provider at this time: Yes The last office visit in the department: 07/13/2024 Does the patient have a future office visit with this provider/department: No Requested Prescriptions Pending Prescriptions Disp Refills amLODIPine (NORVASC) 10 mg tablet 30 tablet 5 Sig: Take 0.5 tablets by mouth two times a day. Take 1/2 tablet twice daily traZODone (DESYREL) 100 mg tablet 30 tablet 11 Sig: Take 1 tablet by mouth daily at bedtime. Kassandra Okeefe RN July 30, 2024 5:16 PM [facility]12-26-2024 Miscellaneous Notes* Telephone Encounter - Kassandra Okeefe RN - 07/30/2024 5:15 PM EST [facility] pharmacy calling for refills. Pt does not have a follow up appt scheduled. He was seen 07/13/24 by Jessie Harmon. Pharmacy is going to notify pt to follow up with us. When does pt need to be seen next? The patient has been identified by name and date of : Yes Caregiver verified no other encounters exist for this prescription request: Yes Caregiver confirmed with patient/requestor that no other refills are due, in the near future, with this provider at this time: Yes The last office visit in the department: 07/13/2024 Does the patient have a future office visit with this provider/department: No Requested Prescriptions Pending Prescriptions Disp Refills amLODIPine (NORVASC) 10 mg tablet 30 tablet 5 Sig: Take 0.5 tablets by mouth two times a day. Take 1/2 tablet twice daily traZODone (DESYREL) 100 mg tablet 30 tablet 11 Sig: Take 1 tablet by mouth daily at bedtime. Kassandra Okeefe RN July 30, 2024 5:16 PM documented in this encounterProtestant Hospital12-24-2024 Telephone encounter Note * Telephone Encounter - Jayde Wright RN - 07/28/2024 12:41 PM EST calling with health information: patient requesting health information about next appointment with Dr. Mcgrath Pulmonary, reviewed information from patient's chart, and verbalized understanding of information provided Patient denies any new or worsening symptoms of which a provider is not aware:Yes. Confirmed virtual appointment for September 25 at 1:30pm virtual. No further questions. [facility]12-24-2024 Miscellaneous Notes* Telephone Encounter - Jayde Wright RN - 07/28/2024 12:41 PM EST calling with health information: patient requesting health information about next appointment with Dr. Mcgrath, Pulmonary, reviewed information from patient's chart, and verbalized understanding of information provided Patient denies any new or worsening symptoms of which a provider is not aware:Yes. Confirmed virtual appointment for September 25 at 1:30pm virtual. No further questions. documented in this encounterProtestant Hospital12-24-2024 Telephone encounter Note * Telephone Encounter - Rachel Buckley MA - 07/28/2024 9:05 AM EST Office received fax from [employer] regarding incontinence supplies. Type of form: Medical Necessity Form received via fax When form is completed, Fax form to [employer], Form has been forwarded to Physician Desk: Dr. Cruz Buckley MA [facility]12-23-2024 Telephone encounter Note* Telephone Encounter - Monica Cruz MA - 07/27/2024 10:35 AM EST Send order for incontinence supplies to [facility] fax number [phone] [facility]12-23-2024 Telephone encounter Note* Telephone Encounter - Dimple Agustin LPN - 07/27/2024 10:14 AM EST calls to report pt needs incontinence supplies. reports pt had an order from awhile ago but has started needing them every night. Pt's does not know who the DME company is. Per TE 03/11/23 - it shows a form was received in the office for incontinence supplies from [facility]. There is a fax number: [phone]. There isn't a phone number. reports pt uses large pull-up at bedtime. Heavier flow. is asking if office can send order to [facility]. Could not find scanned form in pt's chart. is requesting a call letting her know if office was [facility]. reports pt does not have very many pull-ups left. Dimple Agustin LPN [facility]12-20-2024 Telephone encounter Note* Telephone Encounter - Deanne Neville LPN - 07/24/2024 1:42 PM EST Patient phones requesting refills as follows: Requested Prescriptions Pending Prescriptions Disp Refills albuterol HFA (PROVENTIL HFA, VENTOLIN HFA) 90 mcg/actuation inhaler [Pharmacy Med Name: ALBUTEROL HFA *PROV*90MCG 108 (90 BAS Aerosol] 6.7 g 10 Sig: INHALE 2 PUFFS INTO THE LUNGS EVERY 4 HOURS NEEDED Please review and advise. Deanne Neville LPN [facility]12-20-2024 Miscellaneous Notes* Telephone Encounter - Deanne Neville LPN - 07/24/2024 1:42 PM EST Patient phones requesting refills as follows: Requested Prescriptions Pending Prescriptions Disp Refills albuterol HFA (PROVENTIL HFA, VENTOLIN HFA) 90 mcg/actuation inhaler [Pharmacy Med Name: ALBUTEROL HFA *PROV*90MCG 108 (90 BAS Aerosol] 6.7 g 10 Sig: INHALE 2 PUFFS INTO THE LUNGS EVERY 4 HOURS NEEDED Please review and advise. Deanne Neville LPN documented in this encounterProtestant Hospital12-19-2024 NoteHNO ID: [id number] Author: NAYELI BOYLE APRN.OPERATIONS LABEL CLERK Service: ? Author Type: Nurse Practitioner Type: Progress Notes Filed: 07/23/2024 15:04 Note Text: [facility] Review of Records Patient: Afshin Zee Address: [address] [place], [place] [id number] Impression: Review of records for Afshin Zee, a 68 year old male, being referred by Michelle Webb PA-C [[facility]] to Any Epileptologist for further evaluation and treatment. Patient has previously diagnosed transient altered awareness. 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 MRI from 2023 reported left hemispheric sequelae of stroke. Patient has trialed 2 AEDs. VEEG is indicated and being requested for event characterization and diagnostic evaluation to determine best treatment options. Of note, the patient was resistant to scheduling this. 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 No seizures were recorded EEG ([facility], 11/10/2016): This is an abnormal electroencephalogram recording due to the presence of diffuse slowing of background frequencies. This finding indicates the presence of a generalized cerebral disturbance that could be attributed to toxic, metabolic, infectious, or inflammatory etiologies, as well as medication effects. Additionally, the maximal slowing and increased microvoltage over the left hemisphere may further suggest the presence of a focal lesion or focal disturbance in that area. No clear epileptiform discharges were recorded. No electrographic seizures were recorded. MRI brain wo contrast ([facility], 05/07/2024): Evolution of now remote large left MCA territory infarct with progressive gliosis and volume loss compared to 11/10/2016. No acute findings on today's exam. [id number] MRA demonstrates complete occlusion of the left internal carotid artery immediately after the common carotid bifurcation. 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 There is reconstitution of the left MCA via collateral flow via the left JENNIFER and left posterior communicating artery. Small saccular aneurysm approximately 2 mm in size projecting superiorly from the midportion of the anterior communicating artery. Immediately adjacent to this but separate from the dome is a small vessel which extends from the anterior communicating artery into the pericallosal area. RIGO Recommendations: - Admit to EMU for VEEG monitoring, diagnostic evaluation Location: Main [place] or [place] - Visit with epileptologist prior to admission - OK to start with a consult visit if patient prefers. - Additional testing to be considered by epilepsy clinicians Signed: Nayeli Boyle APRN.OPERATIONS LABEL CLERK July 23, [address] Groves for review and recommendations. MD Recommendations (as discussed with Dr. Groves): - Please proceed with the above plan. Please route this encounter to the EMU Scheduling Pool (P EMU) or PMU Scheduling Pool (P PMU) through LOS AND Follow up PHASE 1.0 AND 1.5 ORDER SYNOPSIS Patient: Afshin Zee ([id number]) Best contact number: [phone] Insurance: Payor: [facility] MEDICARE / Plan: [facility] DUAL COMPLETE HMO POS SNP / Product Type: Medicare / Scheduling Team: Please call for adult patients: EMU coordinator ([phone]) [place] Coordinator ([phone]) PMU coordinator([phone]) Sorority Mother ([phone]) Please call for pediatric patients: PMU coordinator ([phone]) [place] Coordinator ([phone]) EMU coordinator ([phone]) Sorority Mother ([phone]) 07/23/2024 -- Admission Type EMU Adult Number (more content not included)...[facility]12-19-2024 History of Present illness Narrative* Nayeli Boyle, BUILDING EQUIPMENT INSPECTOR.OPERATIONS LABEL CLERK - 07/23/2024 2:25 PM EST [facility] Review of Records Patient: Afshin Zee Address: [address] [place], [place] [id number] Impression: Review of records for Afshin Zee, a 68 year old male, being referred by Michelle Webb PA-C [[facility]] to Any Epileptologist for further evaluation and treatment. Patient has previously diagnosed transient altered awareness. EEG from 2023 reported epileptic structural lesion inleft temporal lobe. MRI from 2023 reported left hemispheric sequelae of stroke. Patient has trialed2 AEDs. VEEG is indicated and being requested for event characterization and diagnostic evaluation to determine best treatment options. Of note, the patient was resistant to scheduling this. 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 No seizures were recorded EEG ([facility], 11/10/2016): This is an abnormal electroencephalogram recording due to the presence of diffuse slowing of background frequencies. This finding indicates the presence of a generalized cerebral disturbance that could be attributed to toxic, metabolic, infectious, or inflammatory etiologies, as well as medication e ffects. Additionally, the maximal slowing and increased microvoltage over the left hemisphere may further suggest the presence of a focal lesion or focal disturbance in that area. No clear epileptiform discharges were recorded. No electrographic seizures were recorded. MRI brain wo contrast ([facility], 05/07/2024): Evolution of now remote large left MCA territory infarct with progressive gliosis and volume loss compared to 11/10/2016. No acute findings on today's exam. Ixne-hd-sbwonr MRA demonstrates complete occlusion of the left internal carotid artery immediately after the common carotid bifurcation. 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 There is reconstitution of the left MCA via collateral flow via the left JENNIFER and left posterior communicating artery. Small saccular aneurysm approximately 2 mm in size projecting superiorly from the midportion of theanterior communicating artery. Immediately adjacent to this but separate from the dome is a small vessel which extends from the anterior communicating artery into the pericallosal area. RIGO Recommendations: - Admit to EMU for VEEG monitoring, diagnostic evaluation Location: [facility] or [facility] - Visit with epileptologist prior to admission - OK to start with a consult visit if patient prefers. - Additional testing to be considered by epilepsy clinicians Signed: Nayeli Boyle APRN.OPERATIONS LABEL CLERK July 23, [address] Groves for review and recommendations. MD Recommendations (as discussed with Dr. Groves): - Please proceed with the above plan. Please route this encounter to the EMU Scheduling Pool (P EMU) or PMU Scheduling Pool (P PMU) through LOS & Follow up PHASE 1.0 AND 1.5 ORDER SYNOPSIS Patient: Afshin Zee ([id number]) Best contact number: [phone] Insurance: Payor: [facility] MEDICARE / Plan: [facility] DUAL COMPLETE HMO POS SNP / Product Type: Medicare / Scheduling Team: Please call for adult patients: EMU coordinator ([phone]) [place] Coordinator ([phone]) PMUcoordinator([phone]) Sorority Mother ([phone]) Please call for pediatric patients: PMU coordinator ([phone]) [place] Coordinator ([phone])EMU coordinator ([phone]) Sorority Mother ([phone]) 07/23/2024 -- Admission Type EMU Adult Number of Days requested 4 Location [facility] Admit Priority Routine 07/23/2024 PURPOSE Patient Being Considered for Epilepsy Surgery? No VEEG recommended to assess seizure burden, address new & concerning syymptom- sign complex, and/or clarify syndromic epilepsy diagnosis? Yes 07/23/2024 -- Sphenoidal monitoring No Electrode placement Standard Appointments and Tests EPIL VEEG ADMIT TO EMU/PMU Consultations None Please route this encounter to the EMU Scheduling pool (P EMU) or PMU Scheduling pool (P PMU) through LOS & Follow up Scheduling coordinators: For all VNS patients being scheduled for DARLENE, please schedule VNS off/on office visits. [facility] Tele[facility] encounter Note * Telephone Encounter - Kassandra Okeefe RN - 07/23/2024 1:12 PM EST Left detailed msg on pt's 's personal voicemail. Instructed that each insurance plan is different and that Multivitamin was sent in as prescription but unsure if their insurance will cover it. [facility] Miscellaneous Notes* Telephone Encounter - Kassandra Okeefe RN - 07/23/2024 1:12 PM EST Left detailed msg on pt's 's personal voicemail. Instructed that each insurance plan is different and that Multivitamin was sent in as prescription but unsure if their insurance will cover it. * Telephone Encounter - Jessie Harmon APRN.CNP - 07/23/2024 12:03 PM EST Can you please call the patient's and let her know that I sent a prescription into preferred pharmacy. However I cannot guarantee that insurance will cover a multivitamin. Thank you Jessie Harmon APRN.CNP The following approved medication requests have been transmitted electronically. Requested Prescriptions Signed Prescriptions Disp Refills multivitamin tablet 90 tablet 3 Sig: Take 1 tablet by mouth once daily. Authorizing Provider: JESSIE HARMON APRN.CNP * Telephone Encounter - Jayde Laughlin RN - 07/22/2024 4:49 PM EST Elida from [facility] with Patient's calls and states that when prescription was sent to [facility] patient did not pay out of pocket. Patient is switching insurance in August and is now going to have to go to [facility]. Per pharmacy this will not be covered by insurance and is not understanding why. Agent and nurse tried to explain to that multivitamins are not always covered under insurance. Agent is asking if there is a formulary exception to multivitamin? asking if prescription can be sent to [facility]? Please review and advise, Jayde Laughlin RN [facility]12[facility] Telephone encounter Note * Telephone Encounter - Jessie Harmon APRN.CNP - 07/23/2024 12:03 PM EST Can you please call the patient's and let her know that I sent a prescription into preferred pharmacy. However I cannot guarantee that insurance will cover a multivitamin. Thank you Jessie Harmon APRN.CNP The following approved medication requests have been transmitted electronically. Requested Prescriptions Signed Prescriptions Disp Refills multivitamin tablet 90 tablet 3 Sig: Take 1 tablet by mouth once daily. Authorizing Provider: JESSIE HARMON APRN.CNP [facility]12-18-[facility]24 Telephone encounter Note* Telephone Encounter - Jayde Laughlin RN - 07/22/2024 4:49 PM EST Elida from [facility] with Patient's calls and states that when prescription was sent to [facility] patient did not pay out of pocket. Patient is switching insurance in August and is now going to have to go to [facility]. Per pharmacy this will not be covered by insurance and is not understanding why. Agent and nurse tried to explain to that multivitamins are not always covered under insurance. Agent is asking if there is a formulary exception to multivitamin? asking if prescription can be sent to [facility]? Please review and advise, Jayde Laughlin RN [facility]12-18-2024 Instructions* Patient Instructions* Michelle Webb PA-C - 07/22/2024 12:07 PM EST Will reach out to Dr. Aj about what medication to try. Follow up in 2-3 months documented in this encounterProtest[facility]12-18-2024 NoteHNO ID: [id number] Author: MICHELLE WEBB PA-C Service: ? Author Type: Physician Physician Obstetrician Type: Progress Notes Filed: 07/22/2024 12:43 Note Text: ESTABLISHED PATIENT VISIT Last visit: 05/20/24 ASSESSMENT/PLAN: 1. Cerebral aneurysm - ICD9: 437.3, ICD10: I67.1 (primary diagnosis) Patient found to have new 2 mm saccular aneurysm, was referred to neurosurgery due to concern of being on anticoagulation and multiple antiplatelets. No headaches or new symptoms since last appointment, encouraged him to schedule with neurosurgery today. 2. History of stroke - ICD9: V12.54, ICD10: Z86.73 3. Left carotid artery occlusion - ICD9: 433.10, ICD10: I65.22 4. Stenosis of left subclavian artery (HCC) - ICD9: 447.1, ICD10: I77.1 5. History of obstructive sleep apnea - ICD9: 327.23, ICD10: Z86.69 6. History of atrial fibrillation - ICD9: V12.59, ICD10: Z86.79 7. History of coronary artery bypass, five - ICD9: V15.1, ICD10: Z95.1 8. Spasticity - ICD9: 781.0, ICD10: R25.2 9. 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 New MRI of the brain was obtained due to concerns of possible new stroke causing dysphagia. However, showed evolution of old stroke, no new or acute changes on imaging. Will have patient follow with neurosurgery to discuss his current regimen as he does have a new aneurysm found. Is currently on dual antiplatelet therapy as well as Eliquis for atrial fibrillation. No falls, head injuries, altered mental status. Follows with primary care for other risk management including cholesterol and blood pressure. No new symptoms that would warrant additional workup at this time. Encouraged conservative therapy. Additionally, would like a new referral to PMR as he had to cancel his last appointment due to scheduling conflicts. But would still like Botox in his right upper extremity due to spasticity. New consult was placed, patient will schedule this today. Does have a decaler at home and does a lot of physical exercise, encouraged continuation of this. Patient and family agreeable to treatment plan of care at this time, questions were answered. Patient to follow-up in 4 to 5 months or sooner with Dr[address] Aj. Michelle Webb PA-C CHIEF COMPLAINT: follow up HISTORY OF PRESENT ILLNESS: Afshin Zee is a 68 year old male, There were no vitals taken for this visit. with a PMH significant for stroke, insomnia, right hemiaplasia, dysphagia, aphasia, hyperlipidemia, aneurysm, hypertension, CAD, atrial fibrillation, CKD stage III . Patient having episodes of confusion , found to have pneumonia. Worried about keppra causing this and stopped seizure meds. Was recommended stopping keppra and starting onfi 5mg daily and increasing to 10mg, has not started anything. No confusion since being home. Saw CV on 06/01/24 and ordered CTA head and neck, encouraged continuing eliquis and plavix. Patient presents with his family who provides history. notes that he was started on the Depakote but has been taking it, but ever since he has not been himself. Notes he is extremely fatigued, not able to function normally. Did try decreasing to just 1 pill daily but still have these changes. But he is also crying and very emotional on this medication. Sometimes he will not make sense when he is talking. Also had an abnormal episode the other day where he was unable to talk and he urinated himself in bed which is very typical for him. Was hoping to stop the Depakote and try an additional therapy. No new concerns today. REVIEW OF SYSTEMS GENERAL:No weight loss, malaise or fevers. HEENT:Negative for frequent or significant headaches, No changes in hearing or vision, no nose bleeds or other nasal problems NECK:Negative for lumps, goiter, pain and significant neck swelling RESPIRATORY: Negative for cough, wheezing or shortness of breath. CARDIOVASCULAR: Negative for chest pain, leg swelling or palpitations. GASTROINTESTINAL: Negative for abdominal discomfort, blood in stools or black stools or change in bowel habits GENITOURINARY: No history of dysuria, frequency or incontinence MUSCULOSKELETAL: Negative for joint pain or swelling, back pain or muscle pain. NEUROLOGIC:Negative for focal numbness or weakness, headaches and dizziness or syncope, vision changes, speech/languag changes - EXCEPT that as per HPI above. SKIN:Negative for lesions, rash, and itching. PSYCHIATRIC: Negative for sleep disturbance, mood disorder and recent psychosocial stressors. HEMATOLOGIC/LYMPHATIC/IMMUNOLOGIC:Negative for prolonged bleeding, bruising easily or swollen nodes. ENDOCRINE: Negative for cold or heat intolerance, polyuria, polydipsia and goiter. The remainder of the ROS was reviewed and i (more content not included)... [facility]12-18-2024 History of Present illness Narrative* Michelle Webb PA-C - 07/22/2024 11:38 AM EST ESTABLISHED PATIENT VISIT Last visit: 05/20/24 ASSESSMENT/PLAN: 1. Cerebral aneurysm - ICD9: 437.3, ICD10: I67.1 (primary diagnosis) Patient found to have new 2 mm saccular aneurysm, was referred to neurosurgery due to concern of being on anticoagulation and multiple antiplatelets. No headaches or new symptoms since last appointment, encouraged him to schedule with neurosurgery today. 2. History of stroke - ICD9: V12.54, ICD10: Z86.73 3. Left carotid artery occlusion - ICD9: 433.10, ICD10: I65.22 4. Stenosis of left subclavian artery (HCC) - ICD9: 447.1, ICD10: I77.1 5. History of obstructive sleep apnea - ICD9: 327.23, ICD10: Z86.69 6. History of atrial fibrillation - ICD9: V12.59, ICD10: Z86.79 7. History of coronary artery bypass, five - ICD9: V15.1, ICD10: Z95.1 8. Spasticity - ICD9: 781.0, ICD10: R25.2 9. 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 However, showed evolution of old stroke, no new or acute changes on imaging. Will have patient follow with neurosurgery to discuss his current regimen as he does have a new aneurysm found. Is currently on dual antiplatelet therapy as well as Eliquis for atrial fibrillation. No falls, head injuries, alteredmental status. Follows with primary care for other risk management including cholesterol and blood pressure. No new symptoms that would warrant additional workup at this time. Encouraged conservativetherapy. Additionally, would like a new referral to PMR as he had to cancel his last appointment due to scheduling conflicts. But would still like Botox in his right upper extremity due to spasticity. New consult was placed, patient will schedule this today. Does have a decaler at home and does alot of physical exercise, encouraged continuation of this. Patient and family agreeable to treatment plan of care at this time, questions were answered. Patient to follow-up in 4 to 5 months or sooner [address] Dr[address] Aj. Michelle Webb PA-C CHIEF COMPLAINT: follow up HISTORY OF PRESENT ILLNESS: Afshin Zee is a 68 year old male, There were no vitals taken for this visit. with a PMH significant for stroke, insomnia, right hemiaplasia, dysphagia, aphasia, hyperlipidemia, aneurysm, hypertension, CAD, atrial fibrillation, CKD stage III . Patient having episodes of confusion , found to have pneumonia. Worried about keppra causing this and stopped seizure meds. Was recommended stopping keppra and starting onfi 5mg daily and increasing to 10mg, has not started anything. No confusion since being home. Saw CV on 06/01/24 and ordered CTAhead and neck, encouraged continuing eliquis and plavix. Patient presents with his family who provides history. notes that he was started on the Depakote but has been taking it, but ever since he has not been himself. Notes he is extremely fatigued, not able to function normally. Did try decreasing to just 1 pill daily but still have these changes. But he is also crying and very emotional on this medication. Sometimes he will not make sense when he is talking. Also had an abnormal episode the other day where he was unable to talk and he urinatedhimself in bed which is very typical for him. Was hoping to stop the Depakote and try an additionaltherapy. No new concerns today. REVIEW OF SYSTEMS GENERAL:No weight loss, malaise or fevers. HEENT:Negative for frequent or significant headaches, No changes in hearing or vision, no nose bleeds or other nasal problems NECK:Negative for lumps, goiter, pain and significant neck swelling RESPIRATORY: Negative for cough, wheezing or shortness of breath. CARDIOVASCULAR: Negative for chest pain, leg swelling or palpitations. GASTROINTESTINAL: Negative for abdominal discomfort, blood in stools or black stools or change in bowel habits GENITOURINARY: No history of dysuria, frequency or incontinence MUSCULOSKELETAL: Negative for joint pain or swelling, back pain or muscle pain. NEUROLOGIC:Negative for focal numbness or weakness, headaches and dizziness or syncope, vision changes, speech/languag changes - EXCEPT that as per HPI above. SKIN:Negative for lesions, rash, and itching. PSYCHIATRIC: Negative for sleep disturbance, mood disorder and recent psychosocial stressors. HEMATOLOGIC/LYMPHATIC/IMMUNOLOGIC:Negative for prolonged bleeding, bruising easily or swollen nodes. ENDOCRINE: Negative for cold or heat intolerance, polyuria, polydipsia and goiter. The remainder of the ROS was reviewed and is negative. LAB/IMAGING: Those performed since patient's last visit have been reviewed. Unavailable MEDICATIONS: famotidine (PEPCID) 20 mg tablet Take 20 mg by mouth once daily. hydroCHLOROthiazide 12.5 mg tablet Take 1 tablet by mouth every morning. divalproex DR (DEPAKOTE) 500 mg EC tablet Take 1 tablet by mouth two times a day. clotrimazole-betamethasone (LOTRISONE) cream Apply to affected area two times a day. baclofen 10 mg tablet Take 1 tablet by mouth three times a day. OXYGEN, HOME THERAPY, 4 L/min by Nasal Cannula route as directed. busPIRone (BUSPAR) 15 mg tablet take 1 tablet by mouth three times a day STIOLTO RESPIMAT 2.5-2.5 mcg/actuation inhaler inhale 2 puffs by mouth as directed once daily LORazepam (ATIVAN) 1 mg tablet Take 1-2 tablets by mouth three times a day as needed for anxiety for up to 45 days. Take 1-2 pills three times a day multivitamin tablet Take 1 tablet by mouth once daily. potassium chloride (K-TAB) 10 mEq tablet Take 2 tablets by mouth three times a day. albuterol (PROVENTIL) 2.5 mg /3 mL (0.083 %) nebulizer solution INHALE 1 VIAL VIA NEBULIZER EVERY 4HOURS NEEDED FOR WHEEZING/SHORTNESS OF BREATH. USE OVER 5-15 MINUTES clopidogrel (PLAVIX) 75 mg tablet Take 75 mg by mouth once daily. amLODIPine (NORVASC) 10 mg tablet Take 0.5 tablets by mouth two times a day. Take 1/2 tablet twice daily ezetimibe (ZETIA) 10 mg tablet Take 1 tablet by mouth once daily. losartan (COZAAR) 25 mg tablet Take 1 tablet by mouth once daily. ferrous sulfate (FEROSUL) 325 mg (65 mg iron) tablet Take 1 tablet by mouth two times a day. amiodarone (PACERONE) 100 mg tablet TAKE 1 TABLET BY MOUTH ONCE DAILY *DO NOT TAKE IF HEART RATE ISLESS THAN 40* atorvastatin (LIPITOR) 40 mg tablet take 1 tablet by mouth once daily escitalopram oxalate (LEXAPRO) 20 mg tablet take 1 tablet by mouth once daily apixaban (ELIQUIS) 5 mg tab(s) take 1 tablet by mouth twice daily metoprolol tartrate, short acting, (LOPRESSOR) 25 mg tablet TAKE 1/2 TABLET BY MOUTH TWICE DAILY. HOLD IF HEART RATE IS LESS THAN 60 acetaminophen (TYLENOL EXTRA STRENGTH) 500 mg tablet Take 2 tablets by mouth three times a day as needed for pain. traZODone (DESYREL) 100 mg tablet Take 1 tablet by mouth daily at bedtime. albuterol HFA (PROVENTIL HFA, VENTOLIN HFA) 90 mcg/actuation inhaler Inhale 2 Puffs as instructed every 4 hours as needed. fluticasone (FLONASE) 50 mcg/actuation nasal spray Use 1 [place] in each nostril twice daily. Rinse mouth after use. Blood Pressure Monitor kit 1 application twice daily. Measure patient for correct size. Patient needs cuff for left arm readings. COMPOUNDED PRESCRIPTION Articulating AFO foot brace for right leg. Send to [employer]. Dx: I63.9 COMPOUNDED PRESCRIPTION EMBER WALKER DX I63.9 weight 162 # levETIRAcetam (KEPPRA) 250 mg tablet Take 1 tablet by mouth two times a day. (Patient not taking: Reported on 07/22/2024) levETIRAcetam (KEPPRA) 500 mg tablet Take 1 tablet by mouth two times a day. (Patient not taking: Reported on 07/13/2024) HISTORIES PAST MEDICAL HISTORY Diagnosis Date Acute cerebral infarction (HCC) left LEANN (acute kidney injury) (HCC) Anemia Aneurysm (HCC) Anxiety state Atrial fibrillation (HCC) 11/2016 Balanitis CAD (coronary artery disease) Carotid stenosis COPD (chronic obstructive pulmonary disease) ([facility]) Dysphasia Emphysema lung ([facility]) History of blood transfusion 03/2023 Hypertension Hypoxia 03/2023 DARON (obstructive sleep apnea) PVD (peripheral vascular disease) ([facility]) Respiratory failure (HCC) hypoxic-ventilator dependent Stroke (cerebrum) ([facility]) Tobacco abuse FAMILY HISTORY Problem Relation Age of Onset Heart Mother CO in her 70s, pacemaker Diabetes Mother Stroke Father other (AAA) Father other (CAD) Brother Hypertension Brother SOCIAL HISTORY Social History Tobacco Use Smoking status: Former Current packs/day: 0.00 Average packs/day: 2.0 packs/day for 45.0 years (90.0 ttl pk-yrs) Types: Cigarettes Start date: 07/08/1971 Quit date: 07/08/2016 Years since quittin.0 Smokeless tobacco: Never Tobacco comments: 07/08/2016 Vaping Use Vaping status: Never Used Substance Use Topics Alcohol use: No Drug use: Never PHYSICAL EXAMINATION BP 131/76 (BP Site: Left Arm, BP Position: Sitting) Pulse (!) 50 Wt 84.4 kg (186 lb) SpO2 100% BMI 26.69 kg/m GENERAL EXAM: General appearance: NAD, pleasant. HEENT: NC/AT, nasal congestion absent, no oral lesions, membranes moist. NECK: No masses, supple. Lungs: Breathing comfortably Extr: Moves all extremities without difficulty Skin: Cool to touch. No rash. NEUROLOGICAL EXAM: General: Awake, alert, oriented x3 (person,place,time), speech fluent, no dysarthria; comprehension, naming, repetition intact. CN: PERRL, EOMI and without nystagmus, VFF to confrontation, facial sensation and strength are normal and symmetric, hearing is intact to finger rub bilaterally, palate and tongue movements are intact and symmetric. SCM and trapezius strength normal. Coordination: No tremors. Gait: Right leg swings out with ambulation, using cane Assessment and Plan: ASSESSMENT/PLAN: 1. Cerebral aneurysm - ICD9: 437.3, ICD10: I67.1 (primary diagnosis) 2. History of stroke - ICD9: V12.54, ICD10: Z86.73 3. Left carotid artery occlusion - ICD9: 433.10, ICD10: I65.22 4. History of atrial fibrillation - ICD9: V12.59, ICD10: Z86.79 Following with specialty, compliant with medications at this time. No new symptoms. 5. Spasticity - ICD9: 781.0, ICD10: R25.2 Following with PMR 6. 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 Altered mental status, unspecified altered mental status type - ICD9: 780.97, ICD10: R41.82 8. Nonspecific abnormal electroencephalogram (EEG) - ICD9: 794.02, ICD10: R94.01 Patient previously with an abnormal EEG showing sharps in the left temporal region. Was originally put on Keppra but patient had an episode of confusion and so was taken off this when he was recentlyhospitalized in June. Patient was found to have pneumonia, discussed this was likely the sourceof the confusion but patient and family would like to stay away from Keppra. Was put on Depakote 500 mg twice daily but family reports today that he is not tolerating this well and is very fatigued, not acting himself and would like to switch medications. Son was present on the phone as well. Discussed alternative medications, but will ultimately reach out to Dr. Aj to discuss appropriate medication change at this time. Patient initially very resistant to continuing therapy at this time, butdiscussed at length the risks of untreated epilepsy and seizures. Patient and family understand andagree. was interested in pursuing further testing with an EMU admission and following with epilepsy, but patient deferring at this time. Patient and family agreeable to treatment plan of care at this time, questions were answered. Patient to follow-up in 2 to 3 months. Michelle Webb PA-C I spent a total of 50 minutes on the date of the service which included preparing to see the patient, [id number] patient care, completing clinical documentation, obtaining and/or reviewing separately obtained history, performing a medically appropriate examination, and counseling and educating the patient/family/caregiver. This document has been created with the use of voice recognition technology. It may contain inaccuracies: (e.g. misspellings, inaccurate syntax or word sense) that have escaped review. documented in this encounterProtestant Hospital12-09-2024 Instructions* Patient Instructions* Jessie Harmon APRN.CNP - 07/13/2024 2:03 PM EST Start Depakote 500 mg twice daily Monitor symptoms Consult placed for [facility] if needed Keep up coming appointment with Neurology. Get repeat lab in 1 month, non-fasting to check liver function. If left knee pain does not improve get xray completed, if needed may use Tylenol for pain, elevate and apply ice. Follow up as scheduled. Lab Hours: Saturday-Saturday 7:00-5:00 pm, Saturday 7:30 am-12:00pm documented in this encounterProtestant Hospital12-09-2024 History of Present illness Narrative* Jessie Harmon APRN.CNP - 07/13/2024 1:40 PM EST This is a 68 year old male who presents today with: Patient presents with: Seizures presents in the office with patient, concerned that patient has been acting differently, episodes where he will stare off. Currently not taking any medication for his seizures. Referred to see neurologist before starting new medication. Has upcoming appointment at the end of the month. [facility] discharge, neurology at [facility] recommended weaning off the Keppra and starting clobazam 5 mg dailyfor 1 week and increase to 5 mg twice daily. did not feel comfortable with this plan. No active seizing noted. Woke up this morning disoriented, balance was off. Refers that he was feeling off. Seems to be doing better as the day has progressed. No incontinence during the day, using urinal, wearing a depend at bedtime. Left knee hurting, pain started today. No injury to the area. Below Copied from last visit with myself. HOSPITAL/ER FOLLOW UP: Reason for visit: Which facility: [facility] Date of visit: 06/26/2024-06/28/2024 Diagnosis: Confusion, Adverse drug reaction, history of seizures, history of ischemic left MCA stroke Testing done: EKG showed first-degree AV block, no ST or T wave changes. Patient hypoxic on arrivalto ER. Placed on 4 L nasal cannula. Chest x-ray showed concerning more prominent infiltrate in the right lower lobe. CT brain showed chronic changes of the brain, no acute intracranial pathology. Treatment given: Treated with IV Rocephin for pneumonia. Due to reaction with Keppra, neurology consult recommended Onfi 5 mg daily for 1 week then increase to 10 mg at bedtime. Was provided for weaning off Keppra. Recommend patient following up outpatient with neurology. Pneumonia is still presenton repeat chest x-ray, discontinue doxycycline and treated with Levaquin. Current symptoms: refers that she will not give the patient any seizure medication until she speaks with local neurologist (Dr. Aj). Currently not taking any seizure medications at this time.Refers that Afshin has been doing well since coming home. Has not noticed any confusion. Still taking Augmentin for pnumonia. Denies fever or chills. PAST MEDICAL HISTORY: PAST MEDICAL HISTORY Diagnosis Date Acute cerebral infarction (HCC) left LEANN (acute kidney injury) (HCC) Anemia Aneurysm (HCC) Anxiety state Atrial fibrillation (HCC) 11/2016 Balanitis CAD (coronary artery disease) Carotid stenosis COPD (chronic obstructive pulmonary disease) (HCC) Dysphasia Emphysema lung (HCC) History of blood transfusion 03/2023 Hypertension Hypoxia 03/2023 DARON (obstructive sleep apnea) PVD (peripheral vascular disease) (HCC) Respiratory failure (HCC) hypoxic-ventilator dependent Stroke (cerebrum) (HCC) Tobacco abuse PAST SURGICAL HISTORY Procedure Laterality Date ANKLE SURGERY HX Right 08/07/2023 Dr. Kim. Right ankle ORIF due to fracture CABG CONSULT 10/30/2016 multi vessel COLONOSCOPY SCREENING 04/10/2023 EGD W/O RUST SPEC VARICIES INJ 04/11/2023 EGD W/O RUST SPEC VARICIES INJ 04/10/2023 HEART CATHETERIZATION 09/17/2016 PAST SURGICAL HISTORY OF 2017 Aneurysm and stent surgery related to stroke TRACHEOSTOMY HX ALLERGIES Lisinopril, Doxycycline, Sulfa (Sulfonamide Antibiotics), and Zpak [Azithromycin] MEDICATIONS Current Outpatient Medications Medication Sig cloBAZam (ONFI) 10 mg tab tablet Take 1 tablet by mouth. levETIRAcetam (KEPPRA) 250 mg tablet Take 1 tablet by mouth two times a day. amoxicillin-clavulanate potassium (AUGMENTIN) 875-125 mg per tablet Take 1 tablet by mouth two times a day. clotrimazole-betamethasone (LOTRISONE) cream Apply to affected area two times a day. levETIRAcetam (KEPPRA) 500 mg tablet Take 1 tablet by mouth two times a day. baclofen 10 mg tablet Take 1 tablet by mouth three times a day. OXYGEN, HOME THERAPY, 4 L/min by Nasal Cannula route as directed. busPIRone (BUSPAR) 15 mg tablet take 1 tablet by mouth three times a day STIOLTO RESPIMAT 2.5-2.5 mcg/actuation inhaler inhale 2 puffs by mouth as directed once daily LORazepam (ATIVAN) 1 mg tablet Take 1-2 tablets by mouth three times a day as needed for anxiety for up to 45 days. Take 1-2 pills three times a day multivitamin tablet Take 1 tablet by mouth once daily. potassium chloride (K-TAB) 10 mEq tablet Take 2 tablets by mouth three times a day. albuterol (PROVENTIL) 2.5 mg /3 mL (0.083 %) nebulizer solution INHALE 1 VIAL VIA NEBULIZER EVERY 4HOURS NEEDED FOR WHEEZING/SHORTNESS OF BREATH. USE OVER 5-15 MINUTES clopidogrel (PLAVIX) 75 mg tablet Take 1 tablet by mouth once daily. (Patient not taking: Reported on 06/25/2024) amLODIPine (NORVASC) 10 mg tablet Take 0.5 tablets by mouth two times a day. Take 1/2 tablet twice daily ezetimibe (ZETIA) 10 mg tablet Take 1 tablet by mouth once daily. losartan (COZAAR) 25 mg tablet Take 1 tablet by mouth once daily. ferrous sulfate (FEROSUL) 325 mg (65 mg iron) tablet Take 1 tablet by mouth two times a day. amiodarone (PACERONE) 100 mg tablet TAKE 1 TABLET BY MOUTH ONCE DAILY *DO NOT TAKE IF HEART RATE ISLESS THAN 40* atorvastatin (LIPITOR) 40 mg tablet take 1 tablet by mouth once daily escitalopram oxalate (LEXAPRO) 20 mg tablet take 1 tablet by mouth once daily apixaban (ELIQUIS) 5 mg tab(s) take 1 tablet by mouth twice daily metoprolol tartrate, short acting, (LOPRESSOR) 25 mg tablet TAKE 1/2 TABLET BY MOUTH TWICE DAILY. HOLD IF HEART RATE IS LESS THAN 60 acetaminophen (TYLENOL EXTRA STRENGTH) 500 mg tablet Take 2 tablets by mouth three times a day as needed for pain. traZODone (DESYREL) 100 mg tablet Take 1 tablet by mouth daily at bedtime. albuterol HFA (PROVENTIL HFA, VENTOLIN HFA) 90 mcg/actuation inhaler Inhale 2 Puffs as instructed every 4 hours as needed. fluticasone (FLONASE) 50 mcg/actuation nasal spray Use 1 [place] in each nostril twice daily. Rinse mouth after use. Blood Pressure Monitor kit 1 application twice daily. Measure patient for correct size. Patient needs cuff for left arm readings. COMPOUNDED PRESCRIPTION Articulating AFO foot brace for right leg. Send to [employer]. Dx: I63.9 COMPOUNDED PRESCRIPTION EMBER WALKER DX I63.9 weight 162 # No current facility-administered medications for this visit. FAMILY HISTORY Problem Relation Age of Onset Heart Mother CO in her 70s, pacemaker Diabetes Mother Stroke Father other (AAA) Father other (CAD) Brother Hypertension Brother Social History Tobacco Use Smoking status: Former Current packs/day: 0.00 Average packs/day: 2.0 packs/day for 45.0 years (90.0 ttl pk-yrs) Types: Cigarettes Start date: 07/08/1971 Quit date: 07/08/2016 Years since quittin.0 Smokeless tobacco: Never Tobacco comments: 07/08/2016 Vaping Use Vaping status: Never Used Substance Use Topics Alcohol use: No Drug use: Never REVIEW OF SYSTEMS GENERAL: No weight loss, malaise or fevers/chills HEENT: Negative for frequent or significant headaches, No changes in hearing or vision. NECK: Negative for lumps, goiter, pain and significant neck swelling RESPIRATORY: Negative for cough, hemoptysis, wheezing, dyspnea or shortness of breath CARDIOVASCULAR: Negative for chest pain, leg swelling, orthopnea, or palpitations GI: No nausea, vomiting, or diarrhea/constipation. No hematochezia/melena. No heartburn or reflux symptoms. : No history of dysuria, frequency or incontinence MUSCULOSKELETAL: + Left Knee Pain SKIN: Negative for lesions, rash, and itching ENDOCRINE: Negative for cold or heat intolerance, polyuria, polydipsia and goiter NEURO: + Cognitive changes MOOD: Negative for depression, anxiety, or suicidal ideation. EXAM: BP 121/69 Pulse (!) 48 Ht 177.8 cm (5' 10) Wt 84.4 kg (186 lb) BMI 26.69 kg/m PHYSICAL EXAM: General Appearance: Well appearing, alert, in no acute distress, well-hydrated, well nourished. Skin: Skin color, texture, turgor normal, no suspicious rashes or lesions. Head: Normocephalic, no masses, lesions, tenderness or abnormalities. Eyes: Anicteric sclera. Extraocular movements are intact. Lungs: Lungs clear to auscultation. No wheezing, rhonchi, rales. Heart: RRR without murmur, gallop, or rubs. No ectopy. Extremities: No deformities, edema, skin discoloration, clubbing or cyanosis. Good capillary refill. . Musculoskeletal: Full ROM of left knee, crepitus noted with ROM, no edema or color change note. Negative Valgus/Varus. Peripheral Pulses: Normal, Capillary refill <2secs, strong peripheral pulses, Pulses palpable. Neurologic: In wheelchair. Sensation grossly intact. ASSESSMENT/PLAN: 1. Seizure disorder (HCC) - ICD9: 345.90, ICD10: G40.909 (primary diagnosis) - Spoke with Dr. Aj (Neurology), Start on Depakote 500 mg BID - Get CMP completed in 1 month. - Keep up coming appointment with Neurology later this month. - DIVALPROEX 500 MG TABLET,DELAYED RELEASE - CONSULT TO NEUROLOGY - COMPREHENSIVE METABOLIC PANEL 2. Acute pain of left knee - ICD9: 719.46, ICD10: M25.562 - Get xray completed - May elevate and apply ice. - XR KNEE GENERAL 4V AP BOTH/PA BOTH/LAT/MERC LEFT Follow up pending test result or sooner as needed. Discussed treatment plan and patient voices understanding. Patient's questions answered appropriately. Medications and potential side effects were discussed and patient voices understanding. Jessie Harmon APRN.CNP This note was partially generated using [employer] voice recognition system. Note was reviewed for accuracy. There may be minor misspellings or grammar miscues with [employer] voice recognition. documented in this encounterProtestant Hospital12-09-2024 NoteHNO ID: [id number] Author: JESSIE HARMON APRN.CNP Service: ? Author Type: Nurse Practitioner Type: Progress Notes Filed: 07/13/2024 21:24 Note Text: This is a 68 year old male who presents today with: Patient presents with: Seizures presents in the office with patient, concerned that patient has been acting differently, episodes where he will stare off. Currently not taking any medication for his seizures. Referred to see neurologist before starting new medication. Has upcoming appointment at the end of the month. [facility] discharge, neurology at [facility] recommended weaning off the Keppra and starting clobazam 5 mg daily for 1 week and increase to 5 mg twice daily. did not feel comfortable with this plan. No active seizing noted. Woke up this morning disoriented, balance was off. Refers that he was feeling off. Seems to be doing better as the day has progressed. No incontinence during the day, using urinal, wearing a depend at bedtime. Left knee hurting, pain started today. No injury to the area. Below Copied from last visit with myself. HOSPITAL/ER FOLLOW UP: Reason for visit: Which facility: [facility] Date of visit: 06/26/2024-06/28/2024 Diagnosis: Confusion, Adverse drug reaction, history of seizures, history of ischemic left MCA stroke Testing done: EKG showed first-degree AV block, no ST or T wave changes. Patient hypoxic on arrival to ER. Placed on 4 L nasal cannula. Chest x-ray showed concerning more prominent infiltrate in the right lower lobe. CT brain showed chronic changes of the brain, no acute intracranial pathology. Treatment given: Treated with IV Rocephin for pneumonia. Due to reaction with Keppra, neurology consult recommended Onfi 5 mg daily for 1 week then increase to 10 mg at bedtime. Was provided for weaning off Keppra. Recommend patient following up outpatient with neurology. Pneumonia is still present on repeat chest x-ray, discontinue doxycycline and treated with Levaquin. Current symptoms: refers that she will not give the patient any seizure medication until she speaks with local neurologist (Dr. Aj). Currently not taking any seizure medications at this time. Refers that Afshin has been doing well since coming home. Has not noticed any confusion. Still taking Augmentin for pnumonia. Denies fever or chills. PAST MEDICAL HISTORY: PAST MEDICAL HISTORY Diagnosis Date Acute cerebral infarction (HCC) left LEANN (acute kidney injury) (HCC) Anemia Aneurysm (HCC) Anxiety state Atrial fibrillation (HCC) 11/2016 Balanitis CAD (coronary artery disease) Carotid stenosis COPD (chronic obstructive pulmonary disease) (HCC) Dysphasia Emphysema lung (HCC) History of blood transfusion 03/2023 Hypertension Hypoxia 03/2023 DARON (obstructive sleep apnea) PVD (peripheral vascular disease) (HCC) Respiratory failure (HCC) hypoxic-ventilator dependent Stroke (cerebrum) (HCC) Tobacco abuse PAST SURGICAL HISTORY Procedure Laterality Date ANKLE SURGERY HX Right 08/07/2023 Dr. Kim. Right ankle ORIF due to fracture CABG CONSULT 10/30/2016 multi vessel COLONOSCOPY SCREENING 04/10/2023 EGD W/O RUST SPEC VARICIES INJ 04/11/2023 EGD W/O RUST SPEC VARICIES INJ 04/10/2023 HEART CATHETERIZATION 09/17/2016 PAST SURGICAL HISTORY OF 2017 Aneurysm and stent surgery related to stroke TRACHEOSTOMY HX ALLERGIES Lisinopril, Doxycycline, Sulfa (Sulfonamide Antibiotics), and Zpak [Azithromycin] MEDICATIONS Current Outpatient Medications Medication Sig cloBAZam (ONFI) 10 mg tab tablet Take 1 tablet by mouth. levETIRAcetam (KEPPRA) 250 mg tablet Take 1 tablet by mouth two times a day. amoxicillin-clavulanate potassium (AUGMENTIN) 875-125 mg per tablet Take 1 tablet by mouth two times a day. clotrimazole-betamethasone (LOTRISONE) cream Apply to affected area two times a day. levETIRAcetam (KEPPRA) 500 mg tablet Take 1 tablet by mouth two times a day. baclofen 10 mg tablet Take 1 tablet by mouth three times a day. OXYGEN, HOME THERAPY, 4 L/min by Nasal Cannula route as directed. busPIRone (BUSPAR) 15 mg tablet take 1 tablet by mouth three times a day STIOLTO RESPIMAT 2.5-2.5 mcg/actuation inhaler inhale 2 puffs by mouth as directed once daily LORazepam (ATIVAN) 1 mg tablet Take 1-2 tablets by mouth three times a day as needed for anxiety for up to 45 days. Take 1-2 pills three times a day multivitamin tablet Take 1 tablet by mouth once daily. potassium chloride (K-TAB) 10 mEq tablet Take 2 tablets by mouth three times a day. albuterol (PROVENTIL) 2.5 mg /3 mL (0.083 %) nebulizer solution INHALE 1 VIAL VIA NEBULIZER EVERY 4 HOURS NEEDED FOR WHEEZING/SHORTNESS OF BREATH. USE OVER 5-15 MINUTES clopidogrel (PLAVIX) 75 mg tablet Take 1 tablet by mouth once daily. (Patient not taking: Reported on 06/25/2024) amLODIPine (NORVASC) 10 mg tablet Take 0.5 tablets by mouth two times a day. Take 1/2 tablet twice daily amirah (more content not included)...[facility]12-03-2024 Miscellaneous Notes* Telephone Encounter - Mayela Mcgrath LPN - 07/07/2024 10:56 AM EST Patient is scheduled 07/07/24 with MQ * Telephone Encounter - Therese Paz LPN - 07/07/2024 9:52 AM EST calling because she has not heard back. Pt was in [facility] ER/Hospital last week. Pt is off his seizure medicines and not sure what he is to be taking. They are trying to get apt with Dr. Aj or Otis. Please call to schedule apt. Very concerned he is off all seizure medication. Therese Paz LPN documented in this encounterProtestant Hospital12-03-2024 Telephone encounter Note * Telephone Encounter - Mayela Mcgrath LPN - 07/07/2024 10:56 AM EST Patient is scheduled 07/07/24 with [facility]12-03-[facility] Telephone encounter Note* Telephone Encounter - Therese Paz LPN - 07/07/2024 9:52 AM EST calling because she has not heard back. Pt was in [facility] ER/Hospital last week. Pt is off his seizure medicines and not sure what he is to be taking. They are trying to get apt with Dr. Aj or Otis. Please call to schedule apt. Very concerned he is off all seizure medication. Therese Paz LPN [facility]11-27-2024 Instructions* Patient Instructions* Jessie Harmon APRN.CNP - 07/01/2024 11:01 AM EST Continue to take current medications Continue to hold Keppra, office will reach out to Neurology Continue to monitor symptoms at home Go to ER with any active seizures. Finish antibiotics Follow up after discussion with Neurology. documented in this encounterProtestant Hospital11-27-2024 History of Present illness Narrative* Jessie Harmon APRN.CNP - 07/01/2024 10:20 AM EST This is a 68 year old male who presents today with: Patient presents with: ER F/U: [facility] ER- Saturday walking pneumonia, then ER Saturday- seizure (), also needs letter stating that hecan not make decisions for himself HISTORY OF PRESENT ILLNESS: Afshin Zee is a 68 year old male. Patient presents with: ER F/U: [facility] ER- Saturday walking pneumonia, then ER Saturday- seizure (), also needs letter stating that javier not make decisions for himself HOSPITAL/ER FOLLOW UP: Reason for visit: Which facility: [facility] Date of visit: 06/26/2024-06/28/2024 Diagnosis: Confusion, Adverse drug reaction, history of seizures, history of ischemic left MCA stroke Testing done: EKG showed first-degree AV block, no ST or T wave changes. Patient hypoxic on arrivalto ER. Placed on 4 L nasal cannula. Chest x-ray showed concerning more prominent infiltrate in the right lower lobe. CT brain showed chronic changes of the brain, no acute intracranial pathology. Treatment given: Treated with IV Rocephin for pneumonia. Due to reaction with Keppra, neurology consult recommended Onfi 5 mg daily for 1 week then increase to 10 mg at bedtime. Was provided for weaning off Keppra. Recommend patient following up outpatient with neurology. Pneumonia is still presenton repeat chest x-ray, discontinue doxycycline and treated with Levaquin. Current symptoms: refers that she will not give the patient any seizure medication until she speaks with local neurologist (Dr. Aj). Currently not taking any seizure medications at this time.Refers that Afshin has been doing well since coming home. Has not noticed any confusion. Still taking Augmentin for pnumonia. Denies fever or chills. PAST MEDICAL HISTORY: PAST MEDICAL HISTORY Diagnosis Date Acute cerebral infarction (HCC) left LEANN (acute kidney injury) (HCC) Anemia Aneurysm (HCC) Anxiety state Atrial fibrillation (HCC) 11/2016 Balanitis CAD (coronary artery disease) Carotid stenosis COPD (chronic obstructive pulmonary disease) (HCC) Dysphasia Emphysema lung (HCC) History of blood transfusion 03/2023 Hypertension Hypoxia 03/2023 DARON (obstructive sleep apnea) PVD (peripheral vascular disease) (HCC) Respiratory failure (HCC) hypoxic-ventilator dependent Stroke (cerebrum) (HCC) Tobacco abuse PAST SURGICAL HISTORY Procedure Laterality Date ANKLE SURGERY HX Right 08/07/2023 Dr. Kim. Right ankle ORIF due to fracture CABG CONSULT 10/30/2016 multi vessel COLONOSCOPY SCREENING 04/10/2023 EGD W/O RUST SPEC VARICIES INJ 04/11/2023 EGD W/O RUST SPEC VARICIES INJ 04/10/2023 HEART CATHETERIZATION 09/17/2016 PAST SURGICAL HISTORY OF 2017 Aneurysm and stent surgery related to stroke TRACHEOSTOMY HX ALLERGIES Lisinopril, Doxycycline, Sulfa (Sulfonamide Antibiotics), and Zpak [Azithromycin] MEDICATIONS Current Outpatient Medications Medication Sig clotrimazole-betamethasone (LOTRISONE) cream Apply to affected area two times a day. levETIRAcetam (KEPPRA) 500 mg tablet Take 1 tablet by mouth two times a day. baclofen 10 mg tablet Take 1 tablet by mouth three times a day. OXYGEN, HOME THERAPY, 4 L/min by Nasal Cannula route as directed. busPIRone (BUSPAR) 15 mg tablet take 1 tablet by mouth three times a day STIOLTO RESPIMAT 2.5-2.5 mcg/actuation inhaler inhale 2 puffs by mouth as directed once daily LORazepam (ATIVAN) 1 mg tablet Take 1-2 tablets by mouth three times a day as needed for anxiety for up to 45 days. Take 1-2 pills three times a day multivitamin tablet Take 1 tablet by mouth once daily. potassium chloride (K-TAB) 10 mEq tablet Take 2 tablets by mouth three times a day. albuterol (PROVENTIL) 2.5 mg /3 mL (0.083 %) nebulizer solution INHALE 1 VIAL VIA NEBULIZER EVERY 4HOURS NEEDED FOR WHEEZING/SHORTNESS OF BREATH. USE OVER 5-15 MINUTES clopidogrel (PLAVIX) 75 mg tablet Take 1 tablet by mouth once daily. (Patient not taking: Reported on 06/25/2024) amLODIPine (NORVASC) 10 mg tablet Take 0.5 tablets by mouth two times a day. Take 1/2 tablet twice daily ezetimibe (ZETIA) 10 mg tablet Take 1 tablet by mouth once daily. losartan (COZAAR) 25 mg tablet Take 1 tablet by mouth once daily. ferrous sulfate (FEROSUL) 325 mg (65 mg iron) tablet Take 1 tablet by mouth two times a day. amiodarone (PACERONE) 100 mg tablet TAKE 1 TABLET BY MOUTH ONCE DAILY *DO NOT TAKE IF HEART RATE ISLESS THAN 40* atorvastatin (LIPITOR) 40 mg tablet take 1 tablet by mouth once daily escitalopram oxalate (LEXAPRO) 20 mg tablet take 1 tablet by mouth once daily apixaban (ELIQUIS) 5 mg tab(s) take 1 tablet by mouth twice daily metoprolol tartrate, short acting, (LOPRESSOR) 25 mg tablet TAKE 1/2 TABLET BY MOUTH TWICE DAILY. HOLD IF HEART RATE IS LESS THAN 60 acetaminophen (TYLENOL EXTRA STRENGTH) 500 mg tablet Take 2 tablets by mouth three times a day as needed for pain. traZODone (DESYREL) 100 mg tablet Take 1 tablet by mouth daily at bedtime. albuterol HFA (PROVENTIL HFA, VENTOLIN HFA) 90 mcg/actuation inhaler Inhale 2 Puffs as instructed every 4 hours as needed. fluticasone (FLONASE) 50 mcg/actuation nasal spray Use 1 [place] in each nostril twice daily. Rinse mouth after use. Blood Pressure Monitor kit 1 application twice daily. Measure patient for correct size. Patient needs cuff for left arm readings. COMPOUNDED PRESCRIPTION Articulating AFO foot brace for right leg. Send to [employer]. Dx: I63.9 COMPOUNDED PRESCRIPTION EMBER WALKER DX I63.9 weight 162 # No current facility-administered medications for this visit. FAMILY HISTORY Problem Relation Age of Onset Heart Mother [place] in her 70s, pacemaker Diabetes Mother Stroke Father other (AAA) Father other (CAD) Brother Hypertension Brother Social History Tobacco Use Smoking status: Former Current packs/day: 0.00 Average packs/day: 2.0 packs/day for 45.0 years (90.0 ttl pk-yrs) Types: Cigarettes Start date: 07/08/1971 Quit date: 07/08/2016 Years since quittin.9 Smokeless tobacco: Never Tobacco comments: 07/08/2016 Vaping Use Vaping status: Never Used Substance Use Topics Alcohol use: No Drug use: Never REVIEW OF SYSTEMS GENERAL: No weight loss, malaise or fevers/chills HEENT: Negative for frequent or significant headaches, No changes in hearing or vision. NECK: Negative for lumps, goiter, pain and significant neck swelling RESPIRATORY: Negative for cough, hemoptysis, wheezing, dyspnea or shortness of breath CARDIOVASCULAR: Negative for chest pain, leg swelling, orthopnea, or palpitations GI: No nausea, vomiting, or diarrhea/constipation. No hematochezia/melena. No heartburn or reflux symptoms. : No history of dysuria, frequency or incontinence MUSCULOSKELETAL: Negative for joint pain or swelling. SKIN: Negative for lesions, rash, and itching ENDOCRINE: Negative for cold or heat intolerance, polyuria, polydipsia and goiter NEURO: No history of headaches, syncope, paralysis, seizures or tremors MOOD: Negative for depression, anxiety, or suicidal ideation. EXAM: BP 110/62 (BP Site: Left Arm, BP Position: Sitting, BP Cuff Size: Large Adult) Pulse 77 Resp 12 Ht 177.8 cm (5' 10) SpO2 97% BMI 26.59 kg/m PHYSICAL EXAM: General Appearance: Well appearing, alert, in no acute distress, well-hydrated, well nourished. Skin: Skin color, texture, turgor normal, no suspicious rashes or lesions. Head: Normocephalic, no masses, lesions, tenderness or abnormalities. Eyes: Anicteric sclera. Extraocular movements are intact. Lungs: Lungs clear to auscultation. No wheezing, rhonchi, rales. Heart: RRR without murmur, gallop, or rubs. No ectopy. Extremities: No deformities, edema, skin discoloration, clubbing or cyanosis. Good capillary refill. Peripheral Pulses: Normal, Capillary refill <2secs, strong peripheral pulses, Pulses palpable. Neurologic: Gait normal. Sensation grossly intact. ASSESSMENT/PLAN: 1. Hospital discharge follow-up - ICD9: V67.59, ICD10: Z09 (primary diagnosis) - Doing well since hospital discharge 2. Adverse effect of drug, initial encounter - ICD9: E947.9, ICD10: T50.905A - Stable, continue to hold Keppra, does not want to continue to complete a long wean. Aware of risks associated. 3. Seizure disorder (HCC) - ICD9: 345.90, ICD10: G40.909 - Instructed to monitor symptoms at home - Red flag symptoms go to ER. - Office will reach out to neurologist for medication recommendations. 4. Bacterial pneumonia - ICD9: 482.9, ICD10: J15.9 - Stable, continue with antibiotics until gone. Follow-up as needed. Discussed treatment plan and patient voices understanding. Patient's questions answered appropriately. Medications and potential side effects were discussed and patient voices understanding. Jessie Harmon APRN.OPERATIONS LABEL CLERK This note was partially generated using Dragon voice recognition system. Note was reviewed for accuracy. There may be minor misspellings or grammar miscues with [employer] voice recognition. documented in this encounterProtestant Hospital11-27-2024 NoteHNO ID: [id number] Author: JESSIE HARMON APRN.CNP Service: ? Author Type: Nurse Practitioner Type: Progress Notes Filed: 07/01/2024 16:13 Note Text: This is a 68 year old male who presents today with: Patient presents with: ER F/U: [facility] ER- Saturday walking pneumonia, then ER Saturday- seizure (), also needs letter stating that he can not make decisions for himself HISTORY OF PRESENT ILLNESS: Afshin Zee is a 68 year old male. Patient presents with: ER F/U: [facility] ER- Saturday walking pneumonia, then ER Saturday- seizure (), also needs letter stating that he can not make decisions for himself HOSPITAL/ER FOLLOW UP: Reason for visit: Which facility: [facility] Date of visit: 06/26/2024-06/28/2024 Diagnosis: Confusion, Adverse drug reaction, history of seizures, history of ischemic left MCA stroke Testing done: EKG showed first-degree AV block, no ST or T wave changes. Patient hypoxic on arrival to ER. Placed on 4 L nasal cannula. Chest x-ray showed concerning more prominent infiltrate in the right lower lobe. CT brain showed chronic changes of the brain, no acute intracranial pathology. Treatment given: Treated with IV Rocephin for pneumonia. Due to reaction with Keppra, neurology consult recommended Onfi 5 mg daily for 1 week then increase to 10 mg at bedtime. Was provided for weaning off Keppra. Recommend patient following up outpatient with neurology. Pneumonia is still present on repeat chest x-ray, discontinue doxycycline and treated with Levaquin. Current symptoms: refers that she will not give the patient any seizure medication until she speaks with local neurologist (Dr. Aj). Currently not taking any seizure medications at this time. Refers that Afshin has been doing well since coming home. Has not noticed any confusion. Still taking Augmentin for pnumonia. Denies fever or chills. PAST MEDICAL HISTORY: PAST MEDICAL HISTORY Diagnosis Date Acute cerebral infarction (HCC) left LEANN (acute kidney injury) (HCC) Anemia Aneurysm (HCC) Anxiety state Atrial fibrillation (HCC) 11/2016 Balanitis CAD (coronary artery disease) Carotid stenosis COPD (chronic obstructive pulmonary disease) (HCC) Dysphasia Emphysema lung (HCC) History of blood transfusion 03/2023 Hypertension Hypoxia 03/2023 DARON (obstructive sleep apnea) PVD (peripheral vascular disease) (HCC) Respiratory failure (HCC) hypoxic-ventilator dependent Stroke (cerebrum) (HCC) Tobacco abuse PAST SURGICAL HISTORY Procedure Laterality Date ANKLE SURGERY HX Right 08/07/2023 Dr. Kim. Right ankle ORIF due to fracture CABG CONSULT 10/30/2016 multi vessel COLONOSCOPY SCREENING 04/10/2023 EGD W/O RUST SPEC VARICIES INJ 04/11/2023 EGD W/O BRS SPEC VARICIES INJ 04/10/2023 HEART CATHETERIZATION 09/17/2016 PAST SURGICAL HISTORY OF 2017 Aneurysm and stent surgery related to stroke TRACHEOSTOMY HX ALLERGIES Lisinopril, Doxycycline, Sulfa (Sulfonamide Antibiotics), and Zpak [Azithromycin] MEDICATIONS Current Outpatient Medications Medication Sig clotrimazole-betamethasone (LOTRISONE) cream Apply to affected area two times a day. levETIRAcetam (KEPPRA) 500 mg tablet Take 1 tablet by mouth two times a day. baclofen 10 mg tablet Take 1 tablet by mouth three times a day. OXYGEN, HOME THERAPY, 4 L/min by Nasal Cannula route as directed. busPIRone (BUSPAR) 15 mg tablet take 1 tablet by mouth three times a day STIOLTO RESPIMAT 2.5-2.5 mcg/actuation inhaler inhale 2 puffs by mouth as directed once daily LORazepam (ATIVAN) 1 mg tablet Take 1-2 tablets by mouth three times a day as needed for anxiety for up to 45 days. Take 1-2 pills three times a day multivitamin tablet Take 1 tablet by mouth once daily. potassium chloride (K-TAB) 10 mEq tablet Take 2 tablets by mouth three times a day. albuterol (PROVENTIL) 2.5 mg /3 mL (0.083 %) nebulizer solution INHALE 1 VIAL VIA NEBULIZER EVERY 4 HOURS NEEDED FOR WHEEZING/SHORTNESS OF BREATH. USE OVER 5-15 MINUTES clopidogrel (PLAVIX) 75 mg tablet Take 1 tablet by mouth once daily. (Patient not taking: Reported on 06/25/2024) amLODIPine (NORVASC) 10 mg tablet Take 0.5 tablets by mouth two times a day. Take 1/2 tablet twice daily ezetimibe (ZETIA) 10 mg tablet Take 1 tablet by mouth once daily. losartan (COZAAR) 25 mg tablet Take 1 tablet by mouth once daily. ferrous sulfate (FEROSUL) 325 mg (65 mg iron) tablet Take 1 tablet by mouth two times a day. amiodarone (PACERONE) 100 mg tablet TAKE 1 TABLET BY MOUTH ONCE DAILY *DO NOT TAKE IF HEART RATE IS LESS THAN 40* atorvastatin (LIPITOR) 40 mg tablet take 1 tablet by mouth once daily escitalopram oxalate (LEXAPRO) 20 mg tablet take 1 tablet by mouth once daily apixaban (ELIQUIS) 5 mg tab(s) take 1 tablet by mouth twice daily metoprolol tartrate, short acting, (LOPRESSOR) 25 mg tablet TAKE 1/2 TABLET BY MOUTH TWICE DAILY. HOLD IF HEART RATE IS LESS THAN 60 (more content not included)...[facility]11-25-2024 Telephone encounter Note* Telephone Encounter - Amaya Blanco - 06/29/2024 1:14 PM EST Spouse called looking for below appt with Dr Aj. Please advise the spouse. [facility]11-25-2024 Miscellaneous Notes* Telephone Encounter - Amaya Blanco - 06/29/2024 1:14 PM EST Spouse called looking for below appt with Dr Aj. Please advise the spouse. * Telephone Encounter - Dania Cornelius MD - 06/29/2024 12:22 PM EST noted * Telephone Encounter - Jayde Laughlin RN - 06/29/2024 11:39 AM EST Cathy Josueley from [facility] Home calls and reports that patient was in [facility] ER on 06/26 and diagnosed with Pneumonia and was put on antibiotics. On 06/27 patient was taken to [facility] ER again for breakthrough seizures. Patient was admitted and then discharged on 06/28/2024. Jayde Laughlin RN documented in this encounterProtestant Hospital11-25-2024 Telephone encounter Note * Telephone Encounter - Dania Cornelius MD - 06/29/2024 12:22 PM EST noted [facility] Work Phone: [phone]) 748-187011-25-2024 Telephone encounter Note* Telephone Encounter - Jayde Laughlin RN - 06/29/2024 11:39 AM EST Cathyvijay Siu from [facility] Home calls and reports that patient was in [facility] ER on 06/26 and diagnosed with Pneumonia and was put on antibiotics. On 06/27 patient was taken to [facility] ER again for breakthrough seizures. Patient was admitted and then discharged on 06/28/2024. Jayde Laughlin RN [facility]11-24-2024 [facility] Medical Records Department [address] [place] [address] Discharge Summary 06/28/24 1511 MR#: [id number] Acct: [id number] Name: AFSHIN ZEE Rep #: [id number] : 1955 68 From: Dov Marin DO PCP: Dr. Jaci Arroyo MD Status:ADM JUMANA Location: [place] [address] Providers Date of Admission: 06/28/24 Primary Care Physician: Dr. Jaci Arroyo MD Consultations 06/28/24 01:07 neuro [Consult: Tele-Neurology] Routine Consulting Provider: [facility] Reason for Consult: AMS after Keppra. EMERGENT Consult: No MD Notified: Yes Date Notified: 06/28/24 Time Notified: 01:07 Method of Notification: Answering Service Method of Consult:: Telemedicine Comments:: Dr Chadwick coordinator of online programs 06/28 Nursing Unit Staff Notify [facility] of Tele-Neurology Consult: Yes Reason For Visit: CONFUSION AFTER KEPPRA Diagnosis Discharge Diagnosis (1) Adverse drug reaction: Status: Acute Code(s): T50.905A - Adverse effect of unspecified drugs, medicaments and biological substances, initial encounter Qualifiers: Encounter type: initial encounter Qualified Code(s): T50.905A - Adverse effect of unspecified drugs, medicaments and biological substances, initial encounter (2) History of seizures: Status: Acute Code(s): Z87.898 - Personal history of other specified conditions (3) History of ischemic left MCA stroke: Status: Acute Code(s): Z86.73 - Personal history of transient ischemic attack (TIA), and cerebral infarction without residual deficits (4) Polypharmacy: Status: Acute Code(s): Z79.899 - Other rn er (current) drug therapy (5) Pneumonia: Status: Acute Code(s): J18.9 - Pneumonia, unspecified organism Qualifiers: Pneumonia type: due to unspecified organism Laterality: right Lung location: lower lobe of lung Qualified Code(s): J18.9 - Pneumonia, unspecified organism Plan Encephalopathy * likely toxic. Recently started on levetiracetam for absence seizures but also take baclofen, buspirone, escitalopram, lorazepam. (Reviewed [facility], pt receives routine lorazepam, no norco Rx since July 2023). Likely a combination of all these medications plus his h/o hemorrhagic CVA. * Hold potentiating medications at this time. * Cannot rule out underlying seizures. * Patient has limited mental capacity at baseline. This is likely after his stroke. Seizure d/o * apparently a new diagnosis and had been started on levetiracetam 3-days prior to presentation. Currently held given the confusion. * Neuro consult * Request records from [facility] Medicine/Dr. Aj (unable to pull up info through [employer] as it is non-function at this time). * EEG per neurology was normal * Neurology recommeded Vimpat, however, pt has a 1st degree AVB with a SC interval of 232. So she recommended Onfi 5mg for 1 week then 10 mg QHS. As well as cutting back on the Keppra. 250 BID for 1 week, then daily for 1 week, then stop. * Follow up with neurology as outpt. Pt's would like to follow up with [facility] neurology at this time. Pneumonia * suspect pneumococcal * CXR appears worse from the despite being on doxycycline * DC with levofloxacin. Chronic conditions: * HTN: continue amlodipine, losartan, * HLP: continue atorvastatin * anemia: continue ferrous sulfate * afib: metoprolol, amiodarone. Anticoagulated with apixaban. Medications at Discharge Home Medications famotidine 20 mg tablet 20 mg PO QHS PRN PRN Gastric Reflux 12/21/16 baclofen 10 mg tablet 5 mg (1/2 x 10 mg) PO TID 02/05/17 multivitamin,[id number]-[id number] (Complete Multivitamin tablet) 1 tab PO DAILY vitamin 12/04/18 potassium chloride 10 mEq tablet,extended release 20 meq (2 x 10 mEq) PO TID potassium #90 tabs 04/19/20 ezetimibe 10 mg tablet 10 mg PO DAILY 04/22/21 escitalopram oxalate 20 mg tablet 20 mg PO DAILY antidepressant 06/11/21 menthol 0.44 %-zinc oxide 20.6 % topical ointment (Calmoseptine) 1 applic topical TID PRN Diaper Rash #0 grams 06/17/21 amiodarone 100 mg tablet 100 mg PO DAILY HEART 07/11/21 albuterol sulfate 90 mcg/actuation aerosol inhaler (Ventolin HFA) 2 inh inhalation Q4H PRN shortness of breath or wheezing #18 grams 05/29/22 trazodone 50 mg tablet 100 mg PO QHS DEPRESSION 08/16/22 miconazole nitrate 2 % topical cream 1 applic topical BID 14 days #15 grams 08/17/22 amlodipine 5 mg tablet 5 mg PO BID 11/11/22 apixaban 5 mg tablet (Eliquis) 5 mg PO BID 11/11/22 tiotropium 2.5 mcg-olodaterol 2.5 mcg/actuation mist for inhalation (Stiolto Respimat) 2 puff inhalation DAILY 05/29/23 albuterol sulfate 2.5 mg/3 mL (0.083 %) solution for nebulization 2.5 mg continuous nebulization Q6H PRN shortness of breath or wheezing 08/02/23 atorvastatin 40 mg tablet 40 mg PO DAILY 08/02/23 ferrous sulfate 325 mg (65 mg iron) tablet (FeroSul) 325 mg PO BID 08/02/23 losartan 25 mg tablet 25 mg PO DAILY 08/02/23 met (more content not included)...[facility]11-23-2024 Miscellaneous Notes* Telephone Encounter - Medina Al RN - 06/27/2024 7:22 PM EST Reason for Call: Keppra 500mg twice a day, having side effects of medication weakness, disorientation and motor changes to eyelid. states she was informed by that if patient experienced side effects that he would change the medication. states she does not want to give him his evening dose of medication. Outcome: Name of Provider contacted for further advice: Dania Cornelius paged at 2011 Provider's recommendation: Patient should be evaluated in the ED, concern for symptoms that could be related to a TIA and not a result of Medication. should hold next dose of Keppra. Provider's instructions: See above, instructions given to of patient at 2022, she verbalized understanding and confirmed that transportation would be a barrier - encouraged caller to call 911 and she voiced agreement. Reason for Disposition [1] Caller has medicine question about med NOT prescribed by PCP AND [2] triager unable to answer question (e.g., compatibility with other med, storage) Answer Assessment - Initial Assessment Questions 1. NAME of MEDICINE: Keppra 500mg twice a day 2. QUESTION: of patient thinks he may be having symptoms / side effects of medication 3. PRESCRIBER: Neurology, dania Aj Jr. 4. SYMPTOMS: eyes half open, disoriented / tired earlier this morning ( confirms all symptoms have resolved at time of call) Protocols used: Medication Question [id number] documented in this encounterProtestant Hospital11-23-2024 Telephone encounter Note * Telephone Encounter - Medina Al RN - 06/27/2024 7:22 PM EST Reason for Call: Keppra 500mg twice a day, having side effects of medication weakness, disorientation and motor changes to eyelid. states she was informed by that if patient experienced side effects that he would change the medication. states she does not want to give him his evening dose of medication. Outcome: Name of Provider contacted for further advice: Dania Cornelius paged at 2011 Provider's recommendation: Patient should be evaluated in the ED, concern for symptoms that could be related to a TIA and not a result of Medication. should hold next dose of Keppra. Provider's instructions: See above, instructions given to of patient at 2022, she verbalized understanding and confirmed that transportation would be a barrier - encouraged caller to call 911 and she voiced agreement. Reason for Disposition [1] Caller has medicine question about med NOT prescribed by PCP AND [2] triager unable to answer question (e.g., compatibility with other med, storage) Answer Assessment - Initial Assessment Questions 1. NAME of MEDICINE: Keppra 500mg twice a day 2. QUESTION: of patient thinks he may be having symptoms / side effects of medication 3. PRESCRIBER: Neurology, dania Aj Jr. 4. SYMPTOMS: eyes half open, disoriented / tired earlier this morning ( confirms all symptoms have resolved at time of call) Protocols used: Medication Question [id number] [facility]11-21-2024 Telephone encounter Note* Telephone Encounter - Rody Main RN - 06/25/2024 4:50 PM EST Eli called in with concerns about his blood thinner. Given instruction to stop Plavix for colonoscopy but states patient has been off of it for a long time. Ordered in Error in 12/2023. Patient taking Eliquis. Med Rec updated. Rody Main RN [facility]11-21-2024 Miscellaneous Notes* Telephone Encounter - Rody Main RN - 06/25/2024 4:50 PM EST Eli called in with concerns about his blood thinner. Given instruction to stop Plavix for colonoscopy but states patient has been off of it for a long time. Ordered in Error in 12/2023. Patient taking Eliquis. Med Rec updated. Rody Main RN documented in this encounterProtestant Hospital11-21-2024 Telephone encounter Note * Telephone Encounter - Monica Cruz MA - 06/25/2024 4:19 PM EST Pt notified. She does not believe pt is taking Plavix any longer as she couldn't find it in his meds. Doesn't look like our office is prescribing that so it may have been cancelled by the prescribing provider. She states he had an EEG done at [facility] which was ordered by Neurologist Dr. Aj. She states it cameback showing start of seizures. Started him on Keppra 500 mg 1 pill BID. She is not sure if she wants to start him on it after reading side effects. Has appt to follow up in Sep with Neuro. Monica Cruz MA [facility]11-21-2024 Miscellaneous Notes* Telephone Encounter - Monica Cruz MA - 06/25/2024 4:19 PM EST Pt notified. She does not believe pt is taking Plavix any longer as she couldn't find it in his meds. Doesn't look like our office is prescribing that so it may have been cancelled by the prescribing provider. She states he had an EEG done at [facility] which was ordered by Neurologist Dr. Aj. She states it cameback showing start of seizures. Started him on Keppra 500 mg 1 pill BID. She is not sure if she wants to start him on it after reading side effects. Has appt to follow up in Sep with Neuro. Monica Cruz MA * Telephone Encounter - Jaci Arroyo MD - 06/25/2024 3:06 PM EST He should hold the Plavix after today, and hold the Eliquis the day before the colonoscopy. The Losartan and amiodarone he may take normally, no need to hold. Jaci Arroyo MD * Telephone Encounter - Loida Vazquez LPN - 06/24/2024 10:05 AM EST Patient Eli calling was to have had colonoscopy done on Friday 06/29, she had lost the instructions for the procedure. She was asking about Plavix and Amiodarone, Eliquis, Losartan prior to his colonoscopy, if he needs to stop any of them? She did not stop the Iron 7 days prior so she is calling General Surgery office to see if he needs to have procedure rescheduled. Please advise documented in this encounterProtestant Hospital11-21-2024 Telephone encounter Note * Telephone Encounter - Monica Cruz MA - 06/25/2024 4:16 PM EST Pt notified. Monica Cruz MA [facility]11-21-2024 Miscellaneous Notes* Telephone Encounter - Monica Cruz MA - 06/25/2024 4:16 PM EST Pt notified. Monica Cruz MA * Telephone Encounter - Jaci Arroyo MD - 06/25/2024 3:05 PM EST OK for Lotrisone cream as ordered; I do not think he would also need an antibiotic Jaci Arroyo MD * Telephone Encounter - Amaya Kessler RN - 06/25/2024 2:59 PM EST Patient's calling. States tip of patient's penis is red and irritated where foreskin is. Area cleansed well. asking if Dr. Arroyo would reorder Lotrisone cream for this, as this was ordered last time? Pended. asking if PCP feels patient needs an antibiotic ordered for this as well? States patient is having a colonoscopy done on Friday 06/29, and asking if it would be safe for pt to take an antibiotic? Please call with reply. Thank you. documented in this encounterProtestant Hospital11-21-2024 Telephone encounter Note * Telephone Encounter - Jaci Arroyo MD - 06/25/2024 3:06 PM EST He should hold the Plavix after today, and hold the Eliquis the day before the colonoscopy. The Losartan and amiodarone he may take normally, no need to hold. Jaci Arroyo MD [facility]11-21-2024 Telephone encounter Note* Telephone Encounter - Jaci Arroyo MD - 06/25/2024 3:05 PM EST OK for Lotrisone cream as ordered; I do not think he would also need an antibiotic Jaci Arroyo MD [facility]11-21-2024 Telephone encounter Note* Telephone Encounter - Amaya Kessler RN - 06/25/2024 2:59 PM EST Patient's calling. States tip of patient's penis is red and irritated where foreskin is. Area cleansed well. asking if Dr. Arroyo would reorder Lotrisone cream for this, as this was ordered last time? Pended. asking if PCP feels patient needs an antibiotic ordered for this as well? States patient is having a colonoscopy done on Friday 06/29, and asking if it would be safe for pt to take an antibiotic? Please call with reply. Thank you. [facility]11-20-2024 Note* Addendum Note - Michelle Webb PA-C - 06/24/2024 2:36 PM ESTAddended by: MICHELLE WEBB on: 06/24/2024 02:36 PM Modules accepted: Orders [facility]11-20-2024 Miscellaneous Notes* Addendum Note - Michelle Webb PA-C - 06/24/2024 2:36 PM ESTAddended by: MICHELLE WEBB on: 06/24/2024 02:36 PM Modules accepted: Orders * Telephone Encounter - Michelle Webb PA-C - 06/24/2024 2:31 PM EST Patient's , JONAH presented to the office due to concerns of the EEG. Confirmed name and relationto patient. Discussed EEG results including sharps and no actual seizure captured. Encouraged starting Keppra and patient's family amenable to this, discussed side effects. Of note, he was scheduled for an additional EEG and feel this may be a missed schedule. Clarified with Dr. Aj and he has not needed further EEG at evaluation. Will have him cancel this appointment. Will send Keppra 500 mg twice daily to pharmacy. * Telephone Encounter - Pati Hare LPN - 06/24/2024 1:29 PM EST Patients would like further explanation as to why the seizure medication is needed. States that he has not had any seizures that she is aware. * Telephone Encounter - Mayela Mcgrath LPN - 06/24/2024 1:04 PM EST Called patient, no answer. LVM. Please review and advise patient of message below. Mayela Mcgrath LPN June 24, 2024 1:05 PM * Telephone Encounter - Dania Aj Jr., MD - 06/24/2024 12:37 PM EST Per the EEG report, appears sharps are noted in the L hemisphere consistent with underlying insult.I would recommend patient be on seizure medication if none started since last saw in 03/2024. If they agree, will likely start on Keppra 500mg BID. Dania Aj MD * Telephone Encounter - Christina Ozuna MA - 06/23/2024 4:45 PM EST Please review results. Christina Ozuna MA View External Procedures - EEG [ID [id number]] * Telephone Encounter - Jayde Laughlin RN - 06/23/2024 8:15 AM EST Patient's Eli calls and is asking about EEG results that were done at [facility] on 06/15/2024. Please review and advise, Jayde Laughlin RN documented in this encounterProtestant Hospital11-20-2024 Telephone encounter Note * Telephone Encounter - Michelle Webb PA-C - 06/24/2024 2:31 PM EST Patient's , JONAH presented to the office due to concerns of the EEG. Confirmed name and relationto patient. Discussed EEG results including sharps and no actual seizure captured. Encouraged starting Keppra and patient's family amenable to this, discussed side effects. Of note, he was scheduled for an additional EEG and feel this may be a missed schedule. Clarified with Dr. Aj and he has not needed further EEG at evaluation. Will have him cancel this appointment. Will send Keppra 500 mg twice daily to pharmacy. [facility]11-20-2024 Telephone encounter Note* Telephone Encounter - Pati Hare LPN - 06/24/2024 1:29 PM EST Patients would like further explanation as to why the seizure medication is needed. States that he has not had any seizures that she is aware. [facility]11-20-2024 Telephone encounter Note* Telephone Encounter - Mayela Mcgrath LPN - 06/24/2024 1:04 PM EST Called patient, no answer. LVM. Please review and advise patient of message below. Mayela Mcgrath LPN June 24, 2024 1:05 PM [facility]11-20-2024 Telephone encounter Note* Telephone Encounter - Dania Aj Jr., MD - 06/24/2024 12:37 PM EST Per the EEG report, appears sharps are noted in the L hemisphere consistent with underlying insult.I would recommend patient be on seizure medication if none started since last saw in 03/2024. If they agree, will likely start on Keppra 500mg BID. Dania Aj MD [facility] Work Phone: [phone] Telephone encounter Note* Telephone Encounter - Loida Vazquez LPN - 06/24/2024 10:05 AM EST Patient Eli calling was to have had colonoscopy done on Friday 06/29, she had lost the instructions for the procedure. She was asking about Plavix and Amiodarone, Eliquis, Losartan prior to his colonoscopy, if he needs to stop any of them? She did not stop the Iron 7 days prior so she is calling General Surgery office to see if he needs to have procedure rescheduled. Please advise [facility]11-19-2024 Telephone encounter Note* Telephone Encounter - Christina Ozuna MA - 06/23/2024 4:45 PM EST Please review results. Christina Ozuna MA View External Procedures - EEG [ID [id number]] [facility]11-19-2024 Telephone encounter Note* Telephone Encounter - Jayde Laughlin RN - 06/23/2024 8:15 AM EST Patient's Eli calls and is asking about EEG results that were done at [facility] on 06/15/2024. Please review and advise, Jayde Laughlin RN [facility]11-15-2024 Telephone encounter Note* Telephone Encounter - Lora James RN - 06/19/2024 8:30 AM EST Images from the original note were not included. Jorge Cardoso MD [facility] General Surgery Pool I don't stop anticoagulants. I don't see any medications that I would stop - Rich My Chart message sent to patient's , with Go Lytely instructions attached. Lora James RN [facility]11-15-2024 Miscellaneous Notes* Telephone Encounter - Lora James RN - 06/19/2024 8:30 AM EST Images from the original note were not included. Jorge Cardoso MD [facility] General Surgery Pool I don't stop anticoagulants. I don't see any medications that I would stop - Rich My Chart message sent to patient's , with Go Lytely instructions attached. Lora James RN * Telephone Encounter - Amada Kauffman MA - 06/18/2024 4:45 PM EST Patients informed to contact provider performing colonoscopy. Amada Kauffman MA * Telephone Encounter - Stephen Warner MD - 06/18/2024 4:33 PM EST Advise to contact the provider doing the colonoscopy to see if they need him to hold any of his medications and when to start holding them? * Telephone Encounter - Kimo Adamson MA - 06/18/2024 2:43 PM EST Patient is having colonoscopy 06/29 but not sure which medication need help for procedure. Aware sending to provider coordinator of online programs since pcp is out of office. Verified with spouse patient is NOT on plavix but is doing eliquis and all other medication is correct Kimo Adamson MA documented [facility]11-[facility] Telephone encounter Note * Telephone Encounter - Amada Kauffman MA - 06/18/2024 4:45 PM EST Patients informed to contact provider performing colonoscopy. Amada Kauffman MA [facility]11-14-2024 Telephone encounter Note* Telephone Encounter - Stephen Warner MD - 06/18/2024 4:33 PM EST Advise to contact the provider doing the colonoscopy to see if they need him to hold any of his medications and when to start holding them? [facility] Work Phone: [phone] Telephone encounter Note* Telephone Encounter - Kimo Adamson MA - 06/18/2024 2:43 PM EST Patient is having colonoscopy 06/29 but not sure which medication need help for procedure. Aware sending to provider coordinator of online programs since pcp is out of office. Verified with spouse patient is NOT on plavix but is doing eliquis and all other medication is correct Kimo Adamson MA [facility]11-14-2024 Telephone encounter Note* Telephone Encounter - Kimo Adamson MA - 06/18/2024 2:39 PM EST Images from the original note were not included. PA approved till 08/04/25 and patient was notified Kimo Adamson MA [facility]11-14-2024 Miscellaneous Notes* Telephone Encounter - Kimo Adamson MA - 06/18/2024 2:39 PM EST Images from the original note were not included. PA approved till 08/04/25 and patient was notified Kimo Adamson MA * Telephone Encounter - Kimo Adamson MA - 06/18/2024 11:01 AM EST Prior Authorization has been completed online at [employer] for Amiodarone, will await response. LORD- [id number] Please keep encounter open until final decision has been received and documented from insurance [employer]. Kimo Adamson MA documented in this encounterProtest[facility] Hospital11-14-2024 Telephone encounter Note * Telephone Encounter - Kimo Adamson MA - 06/18/2024 11:01 AM EST Prior Authorization has been completed online at [employer] for Amiodarone, will await response. LORD- [id number] Please keep encounter open until final decision has been received and documented from insurance [employer]. Kimo Adamson MA [facility]11-06-2024 Instructions* Patient Instructions* Jessie Gardner APRN.CNP - 06/10/2024 2:45 PM EST We will follow up with you in a few weeks in person so I can get a good look at the arm to get the prior auth for botox. A new hand brace was ordered. You can get it from [employer] [place] [address] documented in this encounterProtestant Hospital11-01-2024 NoteHNO ID: [id number] Author: JESSIE GARDNER APRN.CNP Service: ? Author Type: Nurse Practitioner Type: Progress Notes Filed: 06/11/2024 09:26 Note Text: I have communicated my name and active licensure. The patient's identity and physical location were verified at the time of this visit. Either the patient or their legal sales representative jewelry has been informed of the risks and benefits of -- and alternatives to -- treatment through a remote evaluation and consents to proceed with the evaluation remotely. June 05, 2024 Reason for visit: Patient presents with: New Patient Spasticity Previous Visit: No previous PMANDR HPI (brief) Afshin Zee is a 68 year old right handed male. PMHx of L MCA 2016, Left ICA 2015, TIA 2021, Afib on eliquis, COPD, right hemiparesis, expressive aphasia. [facility] his right arm. Currently follows with PT, and MANAGER OF NETWORK. Was in OT but has been released. Subjective: Patient presents with: New Patient Spasticity Pt is aphasic so appointment done with [facility]. He was working with OT but has since been released as he platued. It was recommended during his sessions that he would benefit from botox. He is planning to go back on Saturday for speech therapy. He works with physical therapy. Notes that he has stiffness with his right arm, he also had a hand brace in the past to help with positioning that has since been lost. interested in getting an evaluation to get a new one. Neuro: -Stroke: First stroke July 2016, second stroke October 2016. Function: -Self care: He is able to get himself dressed will lay out his clothes. He does require assistance with ADLs and IADLs. -Mobility: He is able to walk with assistance and cane. He uses an AFO for his leg. -Gait/stairs: He is able to do a small step but is unable to do a lot of stairs. -Falls: He has had 2 falls within the last 6 months. Denies any injuries with falls. Weakness: Right sided weakness. Pain: No complaints of pain. 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 - has some hearing loss, may be related to time in service. Cognition: able to answer some yes and no questions. Working with MANAGER OF NETWORK for expressive aphasia. Sleep: Denies any problems with sleep. He is ordered to wear a cpap but he does not tolerate it. He wears oxygen at 6L nightly. He sleeps about 8 hours of sleep nightly. Occasional times of waking to use the bathroom. Bowel: continent. No concerns Bladder: Continent with occasional accidents. Assistive devices -Cane Orthosis -Upper limb: uses right hand brace -Lower limb: right AFO Recent labs/Imaging related to complaint: No new labs/images Medications Reviewed baclofen 10 mg tablet Take 1 tablet by mouth three times a day. OXYGEN, HOME THERAPY, 4 L/min by Nasal Cannula route as directed. busPIRone (BUSPAR) 15 mg tablet take 1 tablet by mouth three times a day STIOLTO RESPIMAT 2.5-2.5 mcg/actuation inhaler inhale 2 puffs by mouth as directed once daily LORazepam (ATIVAN) 1 mg tablet Take 1-2 tablets by mouth three times a day as needed for anxiety for up to 45 days. Take 1-2 pills three times a day multivitamin tablet Take 1 tablet by mouth once daily. potassium chloride (K-TAB) 10 mEq tablet Take 2 tablets by mouth three times a day. albuterol (PROVENTIL) 2.5 mg /3 mL (0.083 %) nebulizer solution INHALE 1 VIAL VIA NEBULIZER EVERY 4 HOURS NEEDED FOR WHEEZING/SHORTNESS OF BREATH. USE OVER 5-15 MINUTES clotrimazole-betamethasone (LOTRISONE) cream Apply to affected area two times a day. clopidogrel (PLAVIX) 75 mg tablet Take 1 tablet by mouth once daily. amLODIPine (NORVASC) 10 mg tablet Take 0.5 tablets by mouth two times a day. Take 1/2 tablet twice daily ezetimibe (ZETIA) 10 mg tablet Take 1 tablet by mouth once daily. losartan (COZAAR) 25 mg tablet Take 1 tablet by mouth once daily. ferrous sulfate (FEROSUL) 325 mg (65 mg iron) tablet Take 1 tablet by mouth two times a day. amiodarone (PACERONE) 100 mg tablet TAKE 1 TABLET BY MOUTH ONCE DAILY *DO NOT TAKE IF HEART RATE IS LESS THAN 40* atorvastatin (LIPITOR) 40 mg tablet take 1 tablet by mouth once daily escitalopram oxalate (LEXAPRO) 20 mg tablet take 1 tablet by mouth once daily apixaban (ELIQUIS) 5 mg tab(s) take 1 tablet by mouth twice daily metoprolol tartrate, short acting, (LOPRESSOR) 25 mg tablet TAKE 1/2 TABLET BY MOUTH TWICE DAILY. HOLD IF HEART RATE IS LESS THAN 60 acetaminophen (TYLENOL EXTRA STRENGTH) 500 mg tablet Take 2 tablets by mouth three times a day as needed for pain. traZODone (DESYREL) 100 mg tablet Take 1 tablet by mouth daily at bedtime. albuterol HFA (PROVENTIL HFA, VENTOLIN HFA) 90 mcg/actuation inhaler Inhale 2 Puffs as instructed every 4 hours as needed. fluticasone (FLONASE) 50 mcg/actuation nasal spray Use 1 [place] in each nostril twice daily. Rinse mouth after use. Blood Pressu (more content not included)...[facility]11-01-2024 History of Present illness Narrative* Jessie Gardner, BUILDING EQUIPMENT INSPECTOR.OPERATIONS LABEL CLERK - 06/05/2024 1:09 PM EDT I have communicated my name and active licensure. The patient's identity and physical location wereverified at the time of this visit. Either the patient or their legal sales representative jewelry has been informed of the risks and benefits of -- and alternatives to -- treatment through a remote evaluation andconsents to proceed with the evaluation remotely. June 05, 2024 Reason for visit: Patient presents with: New Patient Spasticity Previous Visit: No previous PM&R HPI (brief) Afshin Zee is a 68 year old right handed male. PMHx of L MCA 2016, Left ICA 2015, TIA 2021, Afib on eliquis, COPD, right hemiparesis, expressive aphasia. He was referred to PM&R for spasticity evaluation for his right arm. Currently follows with PT, and MANAGER OF NETWORK. Was in OT but has been released. Subjective: Patient presents with: New Patient Spasticity Pt is aphasic so appointment done with POA. He was working with OT but has since been released as he platued. It was recommended during his sessions that he would benefit from botox. He is planningto go back on Saturday for speech therapy. He works with physical therapy. Notes that he has stiffness with his right arm, he also had a hand brace in the past to help with positioning that has since be en lost. interested in getting an evaluation to get a new one. Neuro: -Stroke: First stroke July 2016, second stroke October 2016. Function: -Self care: He is able to get himself dressed will lay out his clothes. He does require assistance with ADLs and IADLs. -Mobility: He is able to walk with assistance and cane. He uses an AFO for his leg. -Gait/stairs: He is able to do a small step but is unable to do a lot of stairs. -Falls: He has had 2 falls within the last 6 months. Denies any injuries with falls. Weakness: Right sided weakness. Pain: No complaints of pain. 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 - has some hearing loss, may be related to time in service. Cognition: able to answer some yes and no questions. Working with MANAGER OF NETWORK for expressive aphasia. Sleep: Denies any problems with sleep. He is ordered to wear a cpap but he does not tolerate it. Hewears oxygen at 6L nightly. He sleeps about 8 hours of sleep nightly. Occasional times of waking touse the bathroom. Bowel: continent. No concerns Bladder: Continent with occasional accidents. Assistive devices -Cane Orthosis -Upper limb: uses right hand brace -Lower limb: right AFO Recent labs/Imaging related to complaint: No new labs/images Medications Reviewed baclofen 10 mg tablet Take 1 tablet by mouth three times a day. OXYGEN, HOME THERAPY, 4 L/min by Nasal Cannula route as directed. busPIRone (BUSPAR) 15 mg tablet take 1 tablet by mouth three times a day STIOLTO RESPIMAT 2.5-2.5 mcg/actuation inhaler inhale 2 puffs by mouth as directed once daily LORazepam (ATIVAN) 1 mg tablet Take 1-2 tablets by mouth three times a day as needed for anxiety for up to 45 days. Take 1-2 pills three times a day multivitamin tablet Take 1 tablet by mouth once daily. potassium chloride (K-TAB) 10 mEq tablet Take 2 tablets by mouth three times a day. albuterol (PROVENTIL) 2.5 mg /3 mL (0.083 %) nebulizer solution INHALE 1 VIAL VIA NEBULIZER EVERY 4HOURS NEEDED FOR WHEEZING/SHORTNESS OF BREATH. USE OVER 5-15 MINUTES clotrimazole-betamethasone (LOTRISONE) cream Apply to affected area two times a day. clopidogrel (PLAVIX) 75 mg tablet Take 1 tablet by mouth once daily. amLODIPine (NORVASC) 10 mg tablet Take 0.5 tablets by mouth two times a day. Take 1/2 tablet twice daily ezetimibe (ZETIA) 10 mg tablet Take 1 tablet by mouth once daily. losartan (COZAAR) 25 mg tablet Take 1 tablet by mouth once daily. ferrous sulfate (FEROSUL) 325 mg (65 mg iron) tablet Take 1 tablet by mouth two times a day. amiodarone (PACERONE) 100 mg tablet TAKE 1 TABLET BY MOUTH ONCE DAILY *DO NOT TAKE IF HEART RATE ISLESS THAN 40* atorvastatin (LIPITOR) 40 mg tablet take 1 tablet by mouth once daily escitalopram oxalate (LEXAPRO) 20 mg tablet take 1 tablet by mouth once daily apixaban (ELIQUIS) 5 mg tab(s) take 1 tablet by mouth twice daily metoprolol tartrate, short acting, (LOPRESSOR) 25 mg tablet TAKE 1/2 TABLET BY MOUTH TWICE DAILY. HOLD IF HEART RATE IS LESS THAN 60 acetaminophen (TYLENOL EXTRA STRENGTH) 500 mg tablet Take 2 tablets by mouth three times a day as needed for pain. traZODone (DESYREL) 100 mg tablet Take 1 tablet by mouth daily at bedtime. albuterol HFA (PROVENTIL HFA, VENTOLIN HFA) 90 mcg/actuation inhaler Inhale 2 Puffs as instructed every 4 hours as needed. fluticasone (FLONASE) 50 mcg/actuation nasal spray Use 1 Almont in each nostril twice daily. Rinse mouth after use. Blood Pressure Monitor kit 1 application twice daily. Measure patient for correct size. Patient needs cuff for left arm readings. COMPOUNDED PRESCRIPTION Articulating AFO foot brace for right leg. Send to [employer]. Dx: I63.9 COMPOUNDED PRESCRIPTION EMBER WALKER DX I63.9 weight 162 # OARRS reviewed to confirm/clarify any controlled medications Allergies Reviewed PAST MEDICAL HISTORY: ACTIVE PROBLEM LIST Hyperlipidemia Erectile Dysfunction Cervicalgia Chronic Right Shoulder Pain Occlusion of Left Carotid Artery Stroke (Cerebrum) (Hcc) Aneurysm (Hcc) Essential Hypertension Anxiety Chronic Insomnia Right Hemiplegia (Hcc) Bradycardia Dysphasia Coronary Artery Disease Involving [place] Coronary Artery of [place] Heart Without Angina Pectoris Paroxysmal Atrial Fibrillation (Hcc) Aphasia As Late Effect of Cerebrovascular Accident Stage 3a Chronic Kidney Disease (Hcc) Centrilobular Emphysema (Hcc) Former Cigarette Smoker Stage 3 Chronic Kidney Disease, Unspecified Whether Stage 3a Or 3b Ckd (Hcc) Pre-Operative Cardiovascular Examination PAST SURGICAL HISTORY Procedure Laterality Date ANKLE SURGERY HX Right 08/07/2023 Dr. Kim. Right ankle ORIF due to fracture CABG CONSULT 10/30/2016 multi vessel COLONOSCOPY SCREENING 04/10/2023 EGD W/O RUST SPEC VARICIES INJ 04/11/2023 EGD W/O BRSH SPEC VARICIES INJ 04/10/2023 HEART CATHETERIZATION 09/17/2016 PAST SURGICAL HISTORY OF 2017 Aneurysm and stent surgery related to stroke TRACHEOSTOMY HX Social History Tobacco Use Smoking status: Former Current packs/day: 0.00 Average packs/day: 2.0 packs/day for 45.0 years (90.0 ttl pk-yrs) Types: Cigarettes Start date: 07/08/1971 Quit date: 07/08/2016 Years since quittin.9 Smokeless tobacco: Never Tobacco comments: 07/08/2016 Vaping Use Vaping status: Never Used Substance Use Topics Alcohol use: No Drug use: Never family history includes AAA in his father; CAD in his brother; Diabetes in his mother; Heart in hismother; Hypertension in his brother; Stroke in his father. Review of systems as noted, reviewed, and documented on intake section. Physical Exam: There were no vitals filed for this visit. General: no acute distress. Awake, alert. Cardiopulmonary: unlabored breathing. Appears well perfused Skin: Visualized areas are warm, dry, no jaundice IMPRESSION: Afshin Zee is a 68 year old male. PMHx of L MCA 2016, Left ICA 2015, TIA 2021, Afib on eliquis, COPD, right hemiparesis, expressive aphasia. Virtual visit with and caregiver to discuss ongoing issues with right hand spasticity. (Z86.73) History of stroke (R25.2) Spasticity ACTIVE PROBLEM LIST Hyperlipidemia Erectile Dysfunction Cervicalgia Chronic Right Shoulder Pain Occlusion of Left Carotid Artery Stroke (Cerebrum) (Hcc) Aneurysm (Hcc) Essential Hypertension Anxiety Chronic Insomnia Right Hemiplegia (Hcc) Bradycardia Dysphasia Coronary Artery Disease Involving [place] Coronary Artery of [place] Heart Without Angina Pectoris Paroxysmal Atrial Fibrillation (Hcc) Aphasia As Late Effect of Cerebrovascular Accident Stage 3a Chronic Kidney Disease (Hcc) Centrilobular Emphysema (Hcc) Former Cigarette Smoker Stage 3 Chronic Kidney Disease, Unspecified Whether Stage 3a Or 3b Ckd (Hcc) Pre-Operative Cardiovascular Examination [facility] on 06/05/24 CONSULT TO PHYSICAL MEDICINE AND REHABILITATION ASSESSMENT & PLAN: ASSESSMENT/PLAN: 1. History of stroke - ICD9: V12.54, ICD10: Z86.73 (primary diagnosis) - continue with therapy services - will meet in person to discuss botox. On coumadin will need INR checked prior to injections 2. Spasticity - ICD9: 781.0, ICD10: R25.2 - Continue with baclofen 3. Right foot drop - ICD9: 736.79, ICD10: M21.371 - AFO 4. Hemiparesis affecting right side as late effect of cerebrovascular accident (HCC) - ICD9: 438.20, ICD10: I69.351 - SPLINT. Information provided on AVS for tobacco hanger to get fitted with new splint During our face to face clinical encounter we discussed my concerns neurologically in terms of diagnosis, impact on health and activities of living, and addressed questions. I tried to reassure the patient and also address questions. I explained to the patient to call if any questions, to review res ults, and follow-up as instructed or as needed. Patient verbalizes understanding and I have addressed concerns and questions at this visit Patient has my contacts, educational material provided, and my chart sign up. After visit summary discussed. I spent a total of 45 minutes on the date of the service which included preparing to see the patient, [id number] patient care, completing clinical documentation, performing a medically appropriate examination, counseling and educating the patient/family/caregiver, ordering medications, tests, or p rocedures and communicating results to the patient/family/caregiver. Jessie Gardner APRN.OPERATIONS LABEL CLERK Physical Medicine & Rehab [facility] documented in this encounterProtestant Hospital10-29-2024 Telephone encounter Note * Telephone Encounter - Eliana Valdivia - 06/02/2024 11:32 AM EDT CV PHONE Name of caller : Eli Relationship to patient : Spouse If not self Will need patient permission to release results or disclose health information with called documented in . Patient identified by Name and Date of . ( Afshin Zee, 1955). Yes Number to return call [phone] Reason for Call: Patient spouse is calling regarding schedule CTA HEAD & NECK. I advised imaging is already order in the chart. I transferred her for scheduling. Please call [phone] to provide any other follow up instructions. Thank you. Thank you calling [facility]. You will receive a return call within 48hours ( or 2 business days if close to the weekend). If you feel that this is an urgent issue and needs immediate attention, it is recommended that you contact your primary care provider office or proceed to your nearest Urgent Care Center of Emergency Room ED for evaluation/treatment. [facility]10-29-2024 Miscellaneous Notes* Telephone Encounter - Eliana Valdivia - 06/02/2024 11:32 AM EDT CV PHONE Name of caller : Eli Relationship to patient : Spouse If not self Will need patient permission to release results or disclose health information with called documented in i. Patient identified by Name and Date of . ( Afshin Zee, 1955). Yes Number to return call [phone] Reason for Call: Patient spouse is calling regarding schedule [facility]A HEAD [facility] NECK. I advised imaging is already order in the chart. I transferred her for scheduling. Please call [phone] to provide any other follow up instructions. Thank you. Thank you calling [facility]. You will receive a return call within 48hours ( or 2 business days if close to the weekend). If you feel that this is an urgent issue and needs immediate attention, it is recommended that you contact your primary care provider office or proceed to your nearest Urgent Care Center of Emergency Room ED for evaluation/treatment. documented in this encounterProtestant Hospital10-28-2024 NoteHNO ID: [id number] Author: GLORIA SAWYER MD Service: ? Author Type: Physician Type: Progress Notes Filed: 06/01/2024 13:35 Note Text: [facility] Virtual Visit Consultation is requested by: Dania Del Valle0 [facility] [address] PCP: Jaci Arroyo [address] [place] [address] I have communicated my name and active licensure. The patient's identity and physical location were verified at the time of this visit. Either the patient or their legal sales representative jewelry has been informed of the risks and benefits of -- and alternatives to -- treatment through a remote evaluation and consents to proceed with the evaluation remotely. CEREBROVASCULAR HISTORY Afshin Zee is a 68 year old male with history of left MCA stroke that occurred in 2017. 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 Patient also underwent stenting of the left subclavian artery. Currently the patient is on plavix and eliquis (history of atrial fibrillation). Per the patient did stop taking the aspirin around one year ago. Patient has been stable per . 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 Stroke Event Information MEDICATIONS Current Outpatient Medications Medication Sig baclofen 10 mg tablet Take 1 tablet by mouth three times a day. OXYGEN, HOME THERAPY, 4 L/min by Nasal Cannula route as directed. busPIRone (BUSPAR) 15 mg tablet take 1 tablet by mouth three times a day STIOLTO RESPIMAT 2.5-2.5 mcg/actuation inhaler inhale 2 puffs by mouth as directed once daily LORazepam (ATIVAN) 1 mg tablet Take 1-2 tablets by mouth three times a day as needed for anxiety for up to 45 days. Take 1-2 pills three times a day multivitamin tablet Take 1 tablet by mouth once daily. potassium chloride (K-TAB) 10 mEq tablet Take 2 tablets by mouth three times a day. albuterol (PROVENTIL) 2.5 mg /3 mL (0.083 %) nebulizer solution INHALE 1 VIAL VIA NEBULIZER EVERY 4 HOURS NEEDED FOR WHEEZING/SHORTNESS OF BREATH. USE OVER 5-15 MINUTES clotrimazole-betamethasone (LOTRISONE) cream Apply to affected area two times a day. clopidogrel (PLAVIX) 75 mg tablet Take 1 tablet by mouth once daily. amLODIPine (NORVASC) 10 mg tablet Take 0.5 tablets by mouth two times a day. Take 1/2 tablet twice daily ezetimibe (ZETIA) 10 mg tablet Take 1 tablet by mouth once daily. losartan (COZAAR) 25 mg tablet Take 1 tablet by mouth once daily. ferrous sulfate (FEROSUL) 325 mg (65 mg iron) tablet Take 1 tablet by mouth two times a day. amiodarone (PACERONE) 100 mg tablet TAKE 1 TABLET BY MOUTH ONCE DAILY *DO NOT TAKE IF HEART RATE IS LESS THAN 40* atorvastatin (LIPITOR) 40 mg tablet take 1 tablet by mouth once daily escitalopram oxalate (LEXAPRO) 20 mg tablet take 1 tablet by mouth once daily apixaban (ELIQUIS) 5 mg tab(s) take 1 tablet by mouth twice daily metoprolol tartrate, short acting, (LOPRESSOR) 25 mg tablet TAKE 1/2 TABLET BY MOUTH TWICE DAILY. HOLD IF HEART RATE IS LESS THAN 60 acetaminophen (TYLENOL EXTRA STRENGTH) 500 mg tablet Take 2 tablets by mouth three times a day as needed for pain. zinc oxide 20 % ointment Apply to affected area as needed. traZODone (DESYREL) 100 mg tablet Take 1 tablet by mouth daily at bedtime. albuterol HFA (PROVENTIL HFA, VENTOLIN HFA) 90 mcg/actuation inhaler Inhale 2 Puffs as instructed every 4 hours as needed. aspirin, enteric coated (ASPIRIN, ENTERIC COATED) 81 mg EC tablet Take 81 mg by mouth once daily. fluticasone (FLONASE) 50 mcg/actuation nasal spray Use 1 [place] in each nostril twice daily. Rinse mouth after use. Blood Pressure Monitor kit 1 application twice daily. Measure patient for correct size. Patient needs cuff for left arm readings. COMPOUNDED PRESCRIPTION Articulating AFO foot brace for right leg. Send to [employer]. Dx: I63.9 COMPOUNDED PRESCRIPTION EMBER WALKER DX I63.9 weight 162 # No current facility-administered medications for this visit. ALLERGIES Allergen Reactions Lisinopril Swelling, Angioedema Lip swelling after starting lisinopril. Doxycycline GI Upset, Other: See Comments GI upset (stomach ache/cramping/diarrhea) and splotchy face Sulfa (Sulfonamide * Hives Zpak [Azithromycin] Hives EXAM Limited in setting of video visit General: Pleasant, well-developed, well-nourished, in no acute distress. HEENT: Normocephalic, atraumatic. Lungs: Respirations even and unlabored. Skin: No rash or ecchymoses visible. Neurological: Awake, alert, aphasic. LABS Cholesterol: Cholesterol, Total (mg/dL) Date Value 04/02/2024 122 02/01/2021 149 LDL Cholesterol (mg/dL) Date Value 04/02/2024 61 02/01/2021 82 HDL Cholesterol (mg/dL) Date Value 04/02/2024 37 02/01/2021 36 Triglyceride (mg/dL) Date Value 04/02/2024 121 02/01/2021 157 Diabetes: Hemoglobin A1C (%) Date Value (more content not included)...[facility]10-28-2024 History of Present illness Narrative* Gloria Sawyer MD - 06/01/2024 9:52 AM EDT [facility] Virtual Visit Consultation is requested by: Dania Aj [address] [facility] [id number] PCP: Jaci Arroyo [address] [place] [address] I have communicated my name and active licensure. The patient's identity and physical location wereverified at the time of this visit. Either the patient or their legal sales representative jewelry has been informed of the risks and benefits of -- and alternatives to -- treatment through a remote evaluation andconsents to proceed with the evaluation remotely. CEREBROVASCULAR HISTORY Afshin Zee is a 68 year old male with history of left MCA stroke that occurred in 2017. 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 Patient also underwent stenting of the left subclavian artery. Currently the patient is on plavix and eliquis (history of atrial fibrillation). Per the patient did stop taking the aspirin around one year ago. Patient has been stable per . 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 Stroke Event Information MEDICATIONS Current Outpatient Medications Medication Sig baclofen 10 mg tablet Take 1 tablet by mouth three times a day. OXYGEN, HOME THERAPY, 4 L/min by Nasal Cannula route as directed. busPIRone (BUSPAR) 15 mg tablet take 1 tablet by mouth three times a day STIOLTO RESPIMAT 2.5-2.5 mcg/actuation inhaler inhale 2 puffs by mouth as directed once daily LORazepam (ATIVAN) 1 mg tablet Take 1-2 tablets by mouth three times a day as needed for anxiety for up to 45 days. Take 1-2 pills three times a day multivitamin tablet Take 1 tablet by mouth once daily. potassium chloride (K-TAB) 10 mEq tablet Take 2 tablets by mouth three times a day. albuterol (PROVENTIL) 2.5 mg /3 mL (0.083 %) nebulizer solution INHALE 1 VIAL VIA NEBULIZER EVERY 4HOURS NEEDED FOR WHEEZING/SHORTNESS OF BREATH. USE OVER 5-15 MINUTES clotrimazole-betamethasone (LOTRISONE) cream Apply to affected area two times a day. clopidogrel (PLAVIX) 75 mg tablet Take 1 tablet by mouth once daily. amLODIPine (NORVASC) 10 mg tablet Take 0.5 tablets by mouth two times a day. Take 1/2 tablet twice daily ezetimibe (ZETIA) 10 mg tablet Take 1 tablet by mouth once daily. losartan (COZAAR) 25 mg tablet Take 1 tablet by mouth once daily. ferrous sulfate (FEROSUL) 325 mg (65 mg iron) tablet Take 1 tablet by mouth two times a day. amiodarone (PACERONE) 100 mg tablet TAKE 1 TABLET BY MOUTH ONCE DAILY *DO NOT TAKE IF HEART RATE ISLESS THAN 40* atorvastatin (LIPITOR) 40 mg tablet take 1 tablet by mouth once daily escitalopram oxalate (LEXAPRO) 20 mg tablet take 1 tablet by mouth once daily apixaban (ELIQUIS) 5 mg tab(s) take 1 tablet by mouth twice daily metoprolol tartrate, short acting, (LOPRESSOR) 25 mg tablet TAKE 1/2 TABLET BY MOUTH TWICE DAILY. HOLD IF HEART RATE IS LESS THAN 60 acetaminophen (TYLENOL EXTRA STRENGTH) 500 mg tablet Take 2 tablets by mouth three times a day as needed for pain. zinc oxide 20 % ointment Apply to affected area as needed. traZODone (DESYREL) 100 mg tablet Take 1 tablet by mouth daily at bedtime. albuterol HFA (PROVENTIL HFA, VENTOLIN HFA) 90 mcg/actuation inhaler Inhale 2 Puffs as instructed every 4 hours as needed. aspirin, enteric coated (ASPIRIN, ENTERIC COATED) 81 mg EC tablet Take 81 mg by mouth once daily. fluticasone (FLONASE) 50 mcg/actuation nasal spray Use 1 [place] in each nostril twice daily. Rinse mouth after use. Blood Pressure Monitor kit 1 application twice daily. Measure patient for correct size. Patient needs cuff for left arm readings. COMPOUNDED PRESCRIPTION Articulating AFO foot brace for right leg. Send to [employer]. Dx: I63.9 COMPOUNDED PRESCRIPTION EMBER WALKER DX I63.9 weight 162 # No current facility-administered medications for this visit. ALLERGIES Allergen Reactions Lisinopril Swelling, Angioedema Lip swelling after starting lisinopril. Doxycycline GI Upset, Other: See Comments GI upset (stomach ache/cramping/diarrhea) and splotchy face Sulfa (Sulfonamide * Hives Zpak [Azithromycin] Hives EXAM Limited in setting of video visit General: Pleasant, well-developed, well-nourished, in no acute distress. HEENT: Normocephalic, atraumatic. Lungs: Respirations even and unlabored. Skin: No rash or ecchymoses visible. Neurological: Awake, alert, aphasic. LABS Cholesterol: Cholesterol, Total (mg/dL) Date Value 04/02/2024 122 02/01/2021 149 LDL Cholesterol (mg/dL) Date Value 04/02/2024 61 02/01/2021 82 HDL Cholesterol (mg/dL) Date Value 04/02/2024 37 02/01/2021 36 Triglyceride (mg/dL) Date Value 04/02/2024 121 02/01/2021 157 Diabetes: Hemoglobin A1C (%) Date Value 11/25/2023 4.9 10/22/2016 4.9 IMAGING Reviewed. Patient Entered Questionnaires 05/29/2024 Health Status Impact by Stroke or CVD Impact To a great extent PROMIS/NeuroQoL Score Percentiles 05/29/2024 Physical Health Physical Function Percentile 1 Sleep Percentile 76 Fatigue Percentile 24* Pain Interference Percentile 10 05/29/2024 PROMIS SOCIAL ROLE SCORE Social Role Satisfaction Percentile 1 05/29/2024 Mental Health NeuroQol Cognitive Function Percentile 18* General Self-Efficacy Percentile 14 05/29/2024 05/10/2022 04/16/2016 PROMIS Global Health Scale Physical Health Percentile 2 31 53 Mental Health Percentile 9 34 43 Percentiles provide an indication of how a patient's score ranks in relation to the [place] general population. > 31st percentile is within normal limits or better * < 31st percentile is at least SD worse than population, which may be clinically relevant < 16th percentile is at least 1 SD worse than population and warrants attention Descriptive Summary for PROMIS Physical Function T-score = 28 (Percentile 1) Unable - Do 2 hours of physical labor Unable - Walk at a normal speed. Depression Screenin05/29/2024 02/03/2021 PHQ-9 Score 0 Self-Harm Response Not at all Not at all PHQ-9 Scores: PHQ-9 Self-Harm (Item 9) Response: 0 - 9 No to Mild depression 0 - Not at all 10 - 14 Moderate depression 1 - Several Days > 15 Severe depression 2 - More than half the days 3 - Nearly every day Stroke Mechanism and Scales IMPRESSION 3 mm anterior communicating artery aneurysm. Left subclavian stent. Left ICA chronic occlusion. PLAN Will continue surveillance of the anterior communicating artery aneurysm with serial imaging. Will need to establish the patency of the left subclavian artery with a CT angiogram neck and brain. Also, that will assist with deciding on the anti- platelet therapy. ( Will discuss with primary care and cardiology). For now the patient to continue eliquis and plavix. This was communicated clearly with the patient's . Discussion, counseling, coordination of care > 50% of 30 minutes. Questions asked/ answered. Follow-up with results/ adherence to plan/ continued education. SIGNATURE Gloria Sawyer MD. Neuro Interventional Surgery June 01, 2024 CC Dania Aj [address] [facility] [address] Jaci Arroyo [address] [place] [address] documented [facility] encounterPro[facility] Telephone encounter Note * Telephone Encounter - Monica Cruz MA - 05/28/2024 4:30 PM EDT Pt notified and repeated back to JIMI. Pt was also advised to hold Aspirin as well for 5 days before. Advised he can restart meds after colonoscopy, same day. Monica Cruz MA [facility]10-[facility] Miscellaneous Notes* Telephone Encounter - Monica Cruz MA - 05/28/2024 4:30 PM EDT Pt notified and repeated back to JIMI. Pt was also advised to hold Aspirin as well for 5 days before. Advised he can restart meds after colonoscopy, same day. Monica Cruz MA * Telephone Encounter - Jaci Arroyo MD - 05/28/2024 4:21 PM EDT He should hold the Plavix for 5 days before the colonoscopy, and hold the Eliquis for 2 days beforethe colonoscopy Jaci Arroyo MD * Telephone Encounter - Lacy Ding LPN - 05/28/2024 2:26 PM EDT Pt's calls states py is due to have colonoscopy on 06/29/24 asking if there are any med's you wish for him to hold for that? Please advise and let her know. documented in this encounterProtest[facility]10-24-2024 Telephone encounter Note * Telephone Encounter - Jaci Arroyo MD - 05/28/2024 4:21 PM EDT He should hold the Plavix for 5 days before the colonoscopy, and hold the Eliquis for 2 days beforethe colonoscopy Jaci Arroyo MD [facility] Telephone encounter Note* Telephone Encounter - Monica Cruz MA - 05/28/2024 3:46 PM EDT Tete notified and voiced understanding. Monica Cruz MA [facility] Miscellaneous Notes* Telephone Encounter - Monica Cruz MA - 05/28/2024 3:46 PM EDT Tete notified and voiced understanding. Monica Cruz MA * Telephone Encounter - Jaci Arroyo MD - 05/28/2024 3:43 PM EDT OK for 1 pill tid Jaci Arroyo MD * Telephone Encounter - Jayde Laughlin RN - 05/28/2024 11:56 AM EDT Tete, patient's aide, calling and is trying to sort out patient's medication. Patient was previously getting baclofen 10 mg tablets with directions of take 1/2 tablet by mouth three times a day. This has been what patient has been taking. Patient's medication was done in pill packs. Pharmacy hadsent new medication with directions of take 1 tablet by mouth daily. Appears like prescription was changed on 03/31/2024 but with the same quantity of pills and refill. Was prescription meant to be changed or should patient only be taking 1/2 pill? Patient's pharmacy is [facility]. Please review and advise, Jayde Laughlin RN documented in this encounterProtest[facility] Hospital10-24-2024 Telephone encounter Note * Telephone Encounter - Jaci Arroyo MD - 05/28/2024 3:43 PM EDT OK for 1 pill tid Jaci Arroyo MD [facility] Telephone encounter Note* Telephone Encounter - Jaci Arroyo MD - 05/28/2024 2:52 PM EDT OK to refill as ordered Jaci Arroyo MD [facility]10-24-2024 Miscellaneous Notes* Telephone Encounter - Jaci Arroyo MD - 05/28/2024 2:52 PM EDT OK to refill as ordered Jaci Arroyo MD * Telephone Encounter - Lacy Ding LPN - 05/28/2024 2:21 PM EDT Prescription Refill Information Pts [facility] states [facility] but it needs to be 90 day supply. The patient has been identified by name and date of : Yes Caregiver verified no other encounters exist for this prescription request: Yes Caregiver confirmed with patient/requestor that no other refills are due, in the near future, with this provider at this time: Yes The last office visit in the department: 04/03/24 Does the patient have a future office visit with this provider/department: No Requested Prescriptions Pending Prescriptions Disp Refills baclofen 10 mg tablet 270 tablet 3 Sig: Take 1 tablet by mouth three times a day. Lacy Ding LPN May 28, 2024 2:23 PM documented in this encounterProtestant Hospital10-24-2024 Telephone encounter Note * Telephone Encounter - Lacy Ding LPN - 05/28/2024 2:26 PM EDT Pt's calls states py is due to have colonoscopy on 06/29/24 asking if there are any med's you wish for him to hold for that? Please advise and let her know. [facility] Tele[facility] Note* Telephone Encounter - Lacy Ding LPN - 05/28/2024 2:21 PM EDT Prescription Refill Information Pts calls states [facility] received a script but it needs to be 90 day supply. The patient has been identified by name and date of : Yes Caregiver verified no other encounters exist for this prescription request: Yes Caregiver confirmed with patient/requestor that no other refills are due, in the near future, with this provider at this time: Yes The last office visit in the department: 04/03/24 Does the patient have a future office visit with this provider/department: No Requested Prescriptions Pending Prescriptions Disp Refills baclofen 10 mg tablet 270 tablet 3 Sig: Take 1 tablet by mouth three times a day. Lacy Ding LPN May 28, 2024 2:23 PM [facility] Telephone encounter Note* Telephone Encounter - Jayde Laughlin RN - 05/28/2024 11:56 AM EDT Tete, patient's aide, calling and is trying to sort out patient's medication. Patient was previously getting baclofen 10 mg tablets with directions of take 1/2 tablet by mouth three times a day. This has been what patient has been taking. Patient's medication was done in pill packs. Pharmacy hadsent new medication with directions of take 1 tablet by mouth daily. Appears like prescription was changed on 03/31/2024 but with the same quantity of pills and refill. Was prescription meant to be changed or should patient only be taking 1/2 pill? Patient's pharmacy is [facility]. Please review and advise, Jayde Laughlin RN [facility]10-[facility] Telephone encounter Note* Telephone Encounter - Deanne Neville LPN - 05/22/2024 1:06 PM EDT Spoke with [facility] precert. They are awaiting response from [facility] referral department. No needs from physician at this time. Deanne Neville LPN [facility]10-18-[facility] Miscellaneous Notes* Telephone Encounter - Deanne Neville LPN - 05/22/2024 1:06 PM EDT Spoke with [facility] precert. They are awaiting response from [facility] referral department. No needs from physician at this time. Deanne Neville LPN * Telephone Encounter - Eliana Malin LPN - 05/22/2024 11:42 AM EDT [facility] PA dept called and states they are still waiting on an authorization for this patients CT to be completed which is scheduled 05/26/24. She states she has already talked to Yaquelin in the PA department. She wanted to let you know if the auth is not completed by 3pm today the CT will need cancelled again. Callback number is [phone]. .Eliana Malin LPN documented in this encounterProtestant Hospital10-18-2024 Telephone encounter Note * Telephone Encounter - Eliana Malin LPN - 05/22/2024 11:42 AM EDT [facility] PA dept called and states they are still waiting on an authorization for this patients CT to be completed which is scheduled 05/26/24. She states she has already talked to Yaquelin in the PA department. She wanted to let you know if the auth is not completed by 3pm today the CT will need cancelled again. Callback number is [phone]. .Eliana Malin LPN [facility]10-17-[facility] Telephone encounter Note* Telephone Encounter - Sol Beasley - 05/21/2024 4:32 PM EDT Called pt and left VM with appointment details Sol Beasley [facility]10-[facility] Miscellaneous Notes* Telephone Encounter - Sol Beasley - 05/21/2024 4:32 PM EDT Called pt and left VM with appointment details Sol Beasley * Telephone Encounter - Sol Beasley - 05/21/2024 10:33 AM EDT ENDOVASCULAR INTAKE Patient name: Afshin Zee What diagnosis are you looking to be seen for within our center? (ex: aneurysm, angioma, arteriovenous malformation, brain bleed or brain hemorrhage, cavernous malformation, carotid stenosis, fistula, Moyamoya, Vein of Cade, IIH or pseudotumor, etc.) Dx: Cerebral aneurysm [I67.1 (ICD-10-CM)] Is there a specific provider who is requesting you see our center? (referring provider) Dania Aj Jr., MD Has your referring provider recommended a specific provider in our department? X Is this a second opinion? Have you been recommended for surgery or procedure for this condition? X If yes, have you scheduled this procedure at another facility? If yes, when is the procedure scheduled? Where have you had any imaging for this diagnosis in the past year? These include images such as ultrasounds, MRIs, CTs, or angiograms of the head, brain, neck, carotids, or spine. [facility] in chart Have you had any surgeries or procedures for this condition? X If yes, where was it done and when? Who performed the surgery or procedure? Does any of the following pertain to you? Family history of brain aneurysm? Father Polycystic kidney disease or other genetic kidney disease? Not applicable if chronic kidney disease. X Connective tissue disease such as fibromuscular dysplasia or Lulu-Danlos Syndrome? X Do you prefer in-person or virtual appointment? Out of state residents must be in [place] at the time of their virtual visit. Virtual will sign up Specific day of the week or time of day? Wednesdays Do you prefer to be notified of your appointment by phone or MyChart message? Phone call Thank you for speaking with me today. Your information will now be forwarded to our endovascular advance practice provider team to review and provide scheduling recommendations. Please allow 3 business days to hear back from us. If you do not, feel free to call back [phone] for an update. documented in this encounterProtest[facility] Hospital10-17-2024 Telephone encounter Note * Telephone Encounter - Sol Beasley - 05/21/2024 10:33 AM EDT ENDOVASCULAR INTAKE Patient name: Afshin Zee What diagnosis are you looking to be seen for within our center? (ex: aneurysm, angioma, arteriovenous malformation, brain bleed or brain hemorrhage, cavernous malformation, carotid stenosis, fistula, Moyamoya, Vein of Cade, IIH or pseudotumor, etc.) Dx: Cerebral aneurysm [I67.1 (ICD-10-CM)] Is there a specific provider who is requesting you see our center? (referring provider) Dania Aj Jr., MD Has your referring provider recommended a specific provider in our department? X Is this a second opinion? Have you been recommended for surgery or procedure for this condition? X If yes, have you scheduled this procedure at another facility? If yes, when is the procedure scheduled? Where have you had any imaging for this diagnosis in the past year? These include images such as ultrasounds, MRIs, CTs, or angiograms of the head, brain, neck, carotids, or spine. [facility] in chart Have you had any surgeries or procedures for this condition? X If yes, where was it done and when? Who performed the surgery or procedure? Does any of the following pertain to you? Family history of brain aneurysm? Father Polycystic kidney disease or other genetic kidney disease? Not applicable if chronic kidney disease. X Connective tissue disease such as fibromuscular dysplasia or Lulu-Danlos Syndrome? X Do you prefer in-person or virtual appointment? Out of state residents must be in [place] at the time of their virtual visit. Virtual will sign up Specific day of the week or time of day? Wednesdays Do you prefer to be notified of your appointment by phone or MyChart message? Phone call Thank you for speaking with me today. Your information will now be forwarded to our endovascular advance practice provider team to review and provide scheduling recommendations. Please allow 3 business days to hear back from us. If you do not, feel free to call back [phone] for an update. [facility] Instructions* Patient Instructions* Michelle Webb PA-C - 05/20/2024 9:51 AM EDT Consult to neurosurgery for the aneurysm and blood thinner use Consult to PMR for botox in the right arm NO changes to medications at this time. Follow up in 4-[address] Aj documented in this encounterProtestant Hospital10-16-2024 NoteHNO ID: [id number] Author: MICHELLE WEBB PA-C Service: ? Author Type: Physician Physician Obstetrician Type: Progress Notes Filed: 05/20/2024 10:22 Note Text: ESTABLISHED PATIENT VISIT Last visit: 03/09/[address] Aj ASSESSMENT/PLAN: 1. History of stroke - ICD9: V12.54, ICD10: Z86.73 (primary diagnosis) 2. Left carotid artery occlusion - ICD9: 433.10, ICD10: I65.22 3. Stenosis of left subclavian artery (HCC) - ICD9: 447.1, ICD10: I77.1 4. History of obstructive sleep apnea - ICD9: 327.23, ICD10: Z86.69 5. History of atrial fibrillation - ICD9: V12.59, ICD10: Z86.79 6. History of coronary artery bypass, five - ICD9: V15.1, ICD10: Z95.1 7. 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 Spasticity - ICD9: 781.0, ICD10: R25.2 9. Altered mental status, unspecified altered mental status type - ICD9: 780.97, ICD10: R41.82 Patient with known history of large L cerebral infract impacting most of the LMCA distribution on review of MRI brain images from 2018. Patient with known and prior documented deficits of R side weakness and spasticity as well as aphasia. That said, prior aphasia was noted to be expressive in notes I reviewed and at this time patient with both expressive and receptive features raising question of whether additional strokes may have occurred since that in 2018. Discussed with patient and his . I feel appropriate to evaluate with MRI brain as well as MRA head and neck, with the latter being used to evaluate for progression of carotid disease and intracranial vessel disease as well. As for current stroke treatment, patient already on anticoagulation and DAPT due cardiac disease and PVD. No changes will be made. Also on statin with LDL confirmed to be <70 in 2023. No history of DM. Goal glucose and BP <140/90. Encouraged follow up with sleep for alternative therapies for DARON. Will refer to PMR for evaluation of whether pt might benefit from botox therapy for spasticity in RUE. Finally with pt having reported staring off spells and with history of large cortical stroke, will get EEG to evaluate for possible seizure activity. Pt will follow up after workup complete. Dania Aj MD CHIEF COMPLAINT: follow up HISTORY OF PRESENT ILLNESS: Afshin Zee is a 68 year old male, There were no vitals taken for this visit. with a PMH significant for stroke, insomnia, right hemiaplasia, dysphagia, aphasia, hyperlipidemia, aneurysm, hypertension, CAD, atrial fibrillation, CKD stage III. Pt seen on 03/09/24 for stroke hx, on DAPT and on anticoag. Chronic R sided weakness and expressive aphasia, however, having receptive issues in office so repeat MRI ordered along with MRA head and neck, this showed aneurysm. Sent to PMR for spasticity, ordered EEG for staring off spells (scheduled in July). No new strokes. Patient presents with his and caregiver to review results. No new concerns today, no falls, doing well with exercise at home with his decaler. Compliant with his medications at this time. Does report that he has occasional staring off episodes, but decaler states that he is always distractible when this occurs, happens when he is looking at the window and when she calls his name he looks over to her. REVIEW OF SYSTEMS GENERAL:No weight loss, malaise or fevers. HEENT:Negative for frequent or significant headaches, No changes in hearing or vision, no nose bleeds or other nasal problems NECK:Negative for lumps, goiter, pain and significant neck swelling RESPIRATORY: Negative for cough, wheezing or shortness of breath. CARDIOVASCULAR: Negative for chest pain, leg swelling or palpitations. GASTROINTESTINAL: Negative for abdominal discomfort, blood in stools or black stools or change in bowel habits GENITOURINARY: No history of dysuria, frequency or incontinence MUSCULOSKELETAL: Negative for joint pain or swelling, back pain or muscle pain. NEUROLOGIC:Negative for focal numbness or weakness, headaches and dizziness or syncope, vision changes, speech/languag changes - EXCEPT that as per HPI above. SKIN:Negative for lesions, rash, and itching. PSYCHIATRIC: Negative for sleep disturbance, mood disorder and recent psychosocial stressors. HEMATOLOGIC/LYMPHATIC/IMMUNOLOGIC:Negative for prolonged bleeding, bruising easily or swollen nodes. ENDOCRINE: Negative for cold or heat intolerance, polyuria, polydipsia and goiter. The remainder of the ROS was reviewed and is negative. LAB/IMAGING: Those performed since patient's last visit have been reviewed. MRI brain, MRA brain 05/07/24 IMPRESSION: Evolution of now remote large left MCA territory infarct with progressive gliosis and volume loss compared to 11/10/2016. No acute findings on today's exam. Vczu-ja-[id number] MRA demonstrates complete occlusion of the left internal carotid artery immediately after the common carotid bifurcation. Absent flow void in the left ICA on 11/03/2016 is co (more content not included)... [facility]10-16-2024 History of Present illness Narrative* Michelle Webb PA-C - 05/20/2024 9:24 AM EDT ESTABLISHED PATIENT VISIT Last visit: 03/09/[address] Aj ASSESSMENT/PLAN: 1. History of stroke - ICD9: V12.54, ICD10: Z86.73 (primary diagnosis) 2. Left carotid artery occlusion - ICD9: 433.10, ICD10: I65.22 3. Stenosis of left subclavian artery (HCC) - ICD9: 447.1, ICD10: I77.1 4. History of obstructive sleep apnea - ICD9: 327.23, ICD10: Z86.69 5. History of atrial fibrillation - ICD9: V12.59, ICD10: Z86.79 6. History of coronary artery bypass, five - ICD9: V15.1, ICD10: Z95.1 7. 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 Spasticity - ICD9: 781.0, ICD10: R25.2 9. Altered mental status, unspecified altered mental status type - ICD9: 780.97, ICD10: R41.82 Patient with known history of large L cerebral infract impacting most of the LMCA distribution on review of MRI brain images from 2018. Patient with known and prior documented deficits of R side weakness and spasticity as well as aphasia. That said, prior aphasia was noted to be expressive in notesI reviewed and at this time patient with both expressive and receptive features raising question ofwhether additional strokes may have occurred since that in 2018. Discussed with patient and his . I feel appropriate to evaluate with MRI brain as well as MRA head and neck, with the latter beingused to evaluate for progression of carotid disease and intracranial vessel disease as well. As for current stroke treatment, patient already on anticoagulation and DAPT due cardiac disease and PVD. No changes will be made. Also on statin with LDL confirmed to be <70 in 2023. No history of DM. Goal glucose and BP <140/90. Encouraged follow up with sleep for alternative therapies for DARON. Will refer to PMR for evaluation of whether pt might benefit from botox therapy for spasticity in RUE.Finally with pt having reported staring off spells and with history of large cortical stroke, will get EEG to evaluate for possible seizure activity. Pt will follow up after workup complete. Dania Aj MD CHIEF COMPLAINT: follow up HISTORY OF PRESENT ILLNESS: Afshin Zee is a 68 year old male, There were no vitals taken for this visit. with a PMH significant for stroke, insomnia, right hemiaplasia, dysphagia, aphasia, hyperlipidemia, aneurysm, hypertension, CAD, atrial fibrillation, CKD stage III. Pt seen on 03/09/24 for stroke hx, on DAPT and on anticoag. Chronic R sided weakness and expressive aphasia, however, having receptive issues in office so repeat MRI ordered along with MRA head and neck, this showed aneurysm. Sent to PMR for spasticity, ordered EEG for staring off spells (scheduled in July). No new strokes. Patient presents with his and caregiver to review results. No new concerns today, no falls, doing well with exercise at home with his decaler. Compliant with his medications at this time. Doesreport that he has occasional staring off episodes, but decaler states that he is always distractible when this occurs, happens when he is looking at the window and when she calls his name he looks over to her. REVIEW OF SYSTEMS GENERAL:No weight loss, malaise or fevers. HEENT:Negative for frequent or significant headaches, No changes in hearing or vision, no nose bleeds or other nasal problems NECK:Negative for lumps, goiter, pain and significant neck swelling RESPIRATORY: Negative for cough, wheezing or shortness of breath. CARDIOVASCULAR: Negative for chest pain, leg swelling or palpitations. GASTROINTESTINAL: Negative for abdominal discomfort, blood in stools or black stools or change in bowel habits GENITOURINARY: No history of dysuria, frequency or incontinence MUSCULOSKELETAL: Negative for joint pain or swelling, back pain or muscle pain. NEUROLOGIC:Negative for focal numbness or weakness, headaches and dizziness or syncope, vision changes, speech/languag changes - EXCEPT that as per HPI above. SKIN:Negative for lesions, rash, and itching. PSYCHIATRIC: Negative for sleep disturbance, mood disorder and recent psychosocial stressors. HEMATOLOGIC/LYMPHATIC/IMMUNOLOGIC:Negative for prolonged bleeding, bruising easily or swollen nodes. ENDOCRINE: Negative for cold or heat intolerance, polyuria, polydipsia and goiter. The remainder of the ROS was reviewed and is negative. LAB/IMAGING: Those performed since patient's last visit have been reviewed. MRI brain, MRA brain 05/07/24 IMPRESSION: Evolution of now remote large left MCA territory infarct with progressive gliosis and volume loss compared to 11/10/2016. No acute findings on today's exam. [id number] MRA demonstrates complete occlusion of the left internal carotid artery immediately after the common carotid bifurcation. 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 There is reconstitution of the left MCA via collateral flow via the left JENNIFER and left posterior communicating artery. Small saccular aneurysm approximately 2 mm in size projecting superiorly from the midportion of the anterior communicating artery. Immediately adjacent to this but separate from the dome is a small vessel which extends from the anterior communicating artery into the pericallosal area. (Series 100, images 138-144). MEDICATIONS: OXYGEN, HOME THERAPY, 4 L/min by Nasal Cannula route as directed. busPIRone (BUSPAR) 15 mg tablet take 1 tablet by mouth three times a day STIOLTO RESPIMAT 2.5-2.5 mcg/actuation inhaler inhale 2 puffs by mouth as directed once daily baclofen 10 mg tablet Take 1 tablet by mouth three times a day. multivitamin tablet Take 1 tablet by mouth once daily. potassium chloride (K-TAB) 10 mEq tablet Take 2 tablets by mouth three times a day. albuterol (PROVENTIL) 2.5 mg /3 mL (0.083 %) nebulizer solution INHALE 1 VIAL VIA NEBULIZER EVERY 4HOURS NEEDED FOR WHEEZING/SHORTNESS OF BREATH. USE OVER 5-15 MINUTES clotrimazole-betamethasone (LOTRISONE) cream Apply to affected area two times a day. clopidogrel (PLAVIX) 75 mg tablet Take 1 tablet by mouth once daily. amLODIPine (NORVASC) 10 mg tablet Take 0.5 tablets by mouth two times a day. Take 1/2 tablet twice daily ezetimibe (ZETIA) 10 mg tablet Take 1 tablet by mouth once daily. losartan (COZAAR) 25 mg tablet Take 1 tablet by mouth once daily. ferrous sulfate (FEROSUL) 325 mg (65 mg iron) tablet Take 1 tablet by mouth two times a day. amiodarone (PACERONE) 100 mg tablet TAKE 1 TABLET BY MOUTH ONCE DAILY *DO NOT TAKE IF HEART RATE ISLESS THAN 40* atorvastatin (LIPITOR) 40 mg tablet take 1 tablet by mouth once daily escitalopram oxalate (LEXAPRO) 20 mg tablet take 1 tablet by mouth once daily apixaban (ELIQUIS) 5 mg tab(s) take 1 tablet by mouth twice daily metoprolol tartrate, short acting, (LOPRESSOR) 25 mg tablet TAKE 1/2 TABLET BY MOUTH TWICE DAILY. HOLD IF HEART RATE IS LESS THAN 60 acetaminophen (TYLENOL EXTRA STRENGTH) 500 mg tablet Take 2 tablets by mouth three times a day as needed for pain. zinc oxide 20 % ointment Apply to affected area as needed. traZODone (DESYREL) 100 mg tablet Take 1 tablet by mouth daily at bedtime. albuterol HFA (PROVENTIL HFA, VENTOLIN HFA) 90 mcg/actuation inhaler Inhale 2 Puffs as instructed every 4 hours as needed. aspirin, enteric coated (ASPIRIN, ENTERIC COATED) 81 mg EC tablet Take 81 mg by mouth once daily. fluticasone (FLONASE) 50 mcg/actuation nasal spray Use 1 [place] in each nostril twice daily. Rinse mouth after use. Blood Pressure Monitor kit 1 application twice daily. Measure patient for correct size. Patient needs cuff for left arm readings. COMPOUNDED PRESCRIPTION Articulating AFO foot brace for right leg. Send to [employer]. Dx: I63.9 COMPOUNDED PRESCRIPTION EMBER WALKER DX I63.9 weight 162 # LORazepam (ATIVAN) 1 mg tablet Take 1-2 tablets by mouth three times a day as needed for anxiety for up to 45 days. Take 1-2 pills three times a day HISTORIES PAST MEDICAL HISTORY Diagnosis Date Acute cerebral infarction (HCC) left LEANN (acute kidney injury) ([facility]) Anemia Aneurysm ([facility]) Anxiety state Atrial fibrillation ([facility]) 11/2016 Balanitis CAD (coronary artery disease) Carotid stenosis COPD (chronic obstructive pulmonary disease) ([facility]) Dysphasia Emphysema lung ([facility]) History of blood transfusion 03/2023 Hypertension Hypoxia 03/2023 DARON (obstructive sleep apnea) PVD (peripheral vascular disease) ([facility]) Respiratory failure ([facility]) hypoxic-ventilator dependent Stroke (cerebrum) ([facility]) Tobacco abuse FAMILY HISTORY Problem Relation Age of Onset Heart Mother CO in her 70s, pacemaker Diabetes Mother Stroke Father other (AAA) Father other (CAD) Brother Hypertension Brother SOCIAL HISTORY Social History Tobacco Use Smoking status: Former Current packs/day: 0.00 Average packs/day: 2.0 packs/day for 45.0 years (90.0 ttl pk-yrs) Types: Cigarettes Start date: 07/08/1971 Quit date: 07/08/2016 Years since quittin.8 Smokeless tobacco: Never Tobacco comments: 07/08/2016 Vaping Use Vaping status: Never Used Substance Use Topics Alcohol use: No Drug use: Never PHYSICAL EXAMINATION BP 126/77 Pulse (!) 54 Resp 18 Wt 84.1 kg (185 lb 4.8 oz) SpO2 93% BMI 26.59 kg/m GENERAL EXAM: General appearance: NAD, pleasant. HEENT: NC/AT, nasal congestion absent, no oral lesions, membranes moist. NECK: No masses, supple. Lungs: Breathing comfortably Extr: Moves all extremities without difficulty Skin: Cool to touch. No rash. NEUROLOGICAL EXAM: General: Awake, alert, oriented x3 (person,place,time), however, while follows simple commands and appears to understand, there is more than expressive aphasia on exam with patient having difficulties following some commands. PERRL, EOMI, No vision in left eye, face sensation intact but noted central right facial weakness, hearing is intact to finger rub cristiano, palate and tongue movements are intact and symmetric. SCM and trapezius strength normal. Motor: Normal tone, bulk and strength (5/5) on L side. RUE with 4/5 prox strength but distal to wrist 1/5 at best with significantly increased tone. RLE with increased tone throughout but 4+/5 strength except 0/5 R dorsiflexion. Coordination: No tremors. Gait: Swings right leg out, ambulates with a cane Assessment and Plan: ASSESSMENT/PLAN: 1. Cerebral aneurysm - ICD9: 437.3, ICD10: I67.1 (primary diagnosis) Patient found to have new 2 mm saccular aneurysm, was referred to neurosurgery due to concern of being on anticoagulation and multiple antiplatelets. No headaches or new symptoms since last appointment, encouraged him to schedule with neurosurgery today. 2. History of stroke - ICD9: V12.54, ICD10: Z86.73 3. Left carotid artery occlusion - ICD9: 433.10, ICD10: I65.22 4. Stenosis of left subclavian artery (HCC) - ICD9: 447.1, ICD10: I77.1 5. History of obstructive sleep apnea - ICD9: 327.23, ICD10: Z86.69 6. History of atrial fibrillation - ICD9: V12.59, ICD10: Z86.79 7. History of coronary artery bypass, five - ICD9: V15.1, ICD10: Z95.1 8. Spasticity - ICD9: 781.0, ICD10: R25.2 9. 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 However, showed evolution of old stroke, no new or acute changes on imaging. Will have patient follow with neurosurgery to discuss his current regimen as he does have a new aneurysm found. Is currently on dual antiplatelet therapy as well as Eliquis for atrial fibrillation. No falls, head injuries, alteredmental status. Follows with primary care for other risk management including cholesterol and blood pressure. No new symptoms that would warrant additional workup at this time. Encouraged conservativetherapy. Additionally, would like a new referral to PMR as he had to cancel his last appointment due to scheduling conflicts. But would still like Botox in his right upper extremity due to spasticity. New consult was placed, patient will schedule this today. Does have a decaler at home and does alot of physical exercise, encouraged continuation of this. Patient and family agreeable to treatment plan of care at this time, questions were answered. Patient to follow-up in 4 to 5 months or sooner with Dr[address] Aj. Michelle Webb PA-C I spent a total of 45 minutes on the date of the service which included preparing to see the patient, [id number] patient care, completing clinical documentation, obtaining and/or reviewing separately obtained history, performing a medically appropriate examination, counseling and educating the pat ient/family/caregiver, and ordering medications, tests, or procedures. This document has been created with the use of voice recognition technology. It may contain inaccuracies: (e.g. misspellings, inaccurate syntax or word sense) that have escaped review. documented in this encounterProtest[facility]10-[facility]24 Telephone encounter Note * Telephone Encounter - Therese Casas MA - 05/15/2024 11:45 AM EDT PCP ordered. Therese Casas MA [facility]10-[facility] Miscellaneous Notes* Telephone Encounter - Therese Casas MA - 05/15/2024 11:45 AM EDT PCP ordered. Therese Casas MA * Telephone Encounter - Kia Waters LPN - 05/14/2024 4:35 PM EDT Flaquita from [facility] called. She is asking for updated oxygen orders to be faxed to as patient is planning to go out of town. Kia Waters LPN documented in this encounterProtestant Hospital10-10-2024 Telephone encounter Note * Telephone Encounter - Monica Cruz MA - 05/14/2024 4:54 PM EDT Faxed. Monica Cruz MA [facility]10-[facility] Miscellaneous Notes* Telephone Encounter - Monica Cruz MA - 05/14/2024 4:54 PM EDT Faxed. Monica Cruz MA * Telephone Encounter - Rachel Buckley MA - 05/14/2024 4:46 PM EDT Order on PCP's desk to sign. Rachel Buckley MA * Telephone Encounter - Jaci Arroyo MD - 05/14/2024 4:39 PM EDT Order printed Jaci Arroyo MD * Telephone Encounter - Loida Vazquez LPN - 05/14/2024 2:21 PM EDT Flaquita from [facility] [place] calling asking for order for oxygen for the patient to have set up in [place] on 05/22 for several days. She can not tell me if he is going to have testing or vacationing there. The original provider who ordered his oxygen back in 2021 was Earl Pate from [employer]. Sheis asking for orders to be faxed to [phone]. She is going to reach out and talk to patient to find out more information about this trip. Please advise documented in this encounterProtestant Hospital10-10-2024 Telephone encounter Note * Telephone Encounter - Rachel Buckley MA - 05/14/2024 4:46 PM EDT Order on PCP's desk to sign. Rachel Buckley MA [facility] Telephone encounter Note* Telephone Encounter - Jaci Arroyo MD - 05/14/2024 4:39 PM EDT Order printed Jaci Arroyo MD [facility] Telephone encounter Note* Telephone Encounter - Kia Waters LPN - 05/14/2024 4:35 PM EDT Flaquita from [facility] called. She is asking for updated oxygen orders to be faxed to as patient is planning to go out of town. Kia Waters LPN [facility] Telephone encounter Note* Telephone Encounter - Loida Vazquez LPN - 05/14/2024 2:21 PM EDT Flaquita from [facility] [place] calling asking for order for oxygen for the patient to have set up in [place] on 05/22 for several days. She can not tell me if he is going to have testing or vacationing there. The original provider who ordered his oxygen back in 2021 was Earl Pate from [employer]. Sheis asking for orders to be faxed to [phone]. She is going to reach out and talk to patient to find out more information about this trip. Please advise [facility] Telephone encounter Note* Telephone Encounter - Mariano Beckman APRN.CNP - 05/12/2024 11:04 AM EDT The following approved medication requests have been transmitted electronically. Requested Prescriptions Pending Prescriptions Disp Refills busPIRone (BUSPAR) 15 mg tablet [Pharmacy Med Name: BUSPIRONE HCL 15 MG TABLET] 270 tablet 5 Sig: take 1 tablet by mouth three times a day Mariano Beckman APRN.CNP [facility]10-08-2024 Miscellaneous Notes* Telephone Encounter - Mariano Beckman APRN.CNP - 05/12/2024 11:04 AM EDT The following approved medication requests have been transmitted electronically. Requested Prescriptions Pending Prescriptions Disp Refills busPIRone (BUSPAR) 15 mg tablet [Pharmacy Med Name: BUSPIRONE HCL 15 MG TABLET] 270 tablet 5 Sig: take 1 tablet by mouth three times a day Mariano Beckman APRN.CNP documented in this encounterProtestant Hospital10-04-2024 Telephone encounter Note * Telephone Encounter - Mayela Mcgrath LPN - 05/08/2024 12:25 PM EDT Yes 05/20/24 will be ok. Mayela Mcgrath LPN May 08, 2024 12:25 PM [facility] Miscellaneous Notes* Telephone Encounter - Mayela Mcgrath LPN - 05/08/2024 12:25 PM EDT Yes 05/20/24 will be ok. Mayela Mcgrath LPN May 08, 2024 12:25 PM * Telephone Encounter - Dania Aj Jr., MD - 05/08/2024 12:19 PM EDT Neurosurgery consult placed. * Telephone Encounter - Milan Brunson RN - 05/08/2024 10:26 AM EDT Patient phoned for results from Dr. Aj and given message below. Patient asking what s/s should she pay attention to, to let her know she should call squad, advised CP, [place], change in mental status,SOB, fever, elevated BP-get at least 2 readings of >160/>100 with symptoms. verbalized understanding. asking if 05-20-24 is soon enough for patient's appt with Digital Service Engineer? Please advise . * Telephone Encounter - Amaya Blanco - 05/08/2024 9:53 AM EDT Spoke to spouse and scheduled patient with Kaylan for 05/20 and spouse is requesting a return with results prior to office visit. * Telephone Encounter - Eliana Grigsby LPN - 05/08/2024 8:11 AM EDT ----- Message from Dania Aj MD sent at 05/07/2024 3:59 PM EDT ----- Please try to get in sooner with neur RIGO to go over results of study. There is a reported small aneurysm noted on MRA brain. 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 Regarding aneurysm, and given patient on both anticoagulation and antiplt, feel appropriate to be seen by neurosurgery. If pt agrees, will place consult. Dania Aj MD documented in this encounterProtestant Hospital10-04-2024 Telephone encounter Note * Telephone Encounter - Dania Aj Jr., MD - 05/08/2024 12:19 PM EDT Neurosurgery consult placed. [facility] Telephone encounter Note* Telephone Encounter - Milan Brunson, RN - 05/08/2024 10:26 AM EDT Patient phoned for results from Dr. Aj and given message below. Patient asking what s/s should she pay attention to, to let her know she should call squad, advised CP, [place], change in mental status,SOB, fever, elevated BP-get at least 2 readings of >160/>100 with symptoms. verbalized understanding. asking if 05-20-24 is soon enough for patient's appt with Digital Service Engineer? Please advise . [facility] Telephone encounter Note* Telephone Encounter - Amaya Blanco - 05/08/2024 9:53 AM EDT Spoke to spouse and scheduled patient with MilanMurielyane for 05/20 and spouse is requesting a return with results prior to office visit. [facility] Telephone encounter Note* Telephone Encounter - Eliana Grigsby LPN - 05/08/2024 8:11 AM EDT ----- Message from Dania Aj MD sent at 05/07/2024 3:59 PM EDT ----- Please try to get in sooner with neur RIGO to go over results of study. There is a reported small aneurysm noted on MRA brain. 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 Regarding aneurysm, and given patient on both anticoagulation and antiplt, feel appropriate to be seen by neurosurgery. If pt agrees, will place consult. Dania Aj MD [facility]10-03-2024 NoteIMPRESSION: Evolution of now remote large left MCA territory infarct with progressive gliosis and volume loss compared to 11/10/2016. No acute findings on today's exam. [id number]-dl-[id number] MRA demonstrates complete occlusion of the left internal carotid artery immediately after the common carotid bifurcation. 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 There is reconstitution of the left MCA via collateral flow via the left JENNIFER and left posterior communicating artery. Small saccular aneurysm approximately 2 mm in size projecting superiorly from the midportion of the anterior communicating artery. Immediately adjacent to this but separate from the dome is a small vessel which extends from the anterior communicating artery into the pericallosal area. (Series 100, images 138-144). Food Service Utility Worker: [facility] Transcribe Date/Time: May 07 2024 2:43P Dictated by : JODI ARECHIGA MD This examination was interpreted and the report reviewed and electronically signed by: YARY MUNOZ MD on May 07 2024 3:31PM [facility] DIVISION OF [id number] NoteIMPRESSION: Evolution of now remote large left MCA territory infarct with progressive gliosis and volume loss compared to 11/10/2016. No acute findings on today's exam. Kpit-xg-urzkbb MRA demonstrates complete occlusion of the left internal carotid artery immediately after the common carotid bifurcation. 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 There is reconstitution of the left MCA via collateral flow via the left JENNIFER and left posterior communicating artery. Small saccular aneurysm approximately 2 mm in size projecting superiorly from the midportion of the anterior communicating artery. Immediately adjacent to this but separate from the dome is a small vessel which extends from the anterior communicating artery into the pericallosal area. (Series 100, images 138-144). Food Service Utility Worker[facility] Transcribe Date/Time: May 07 2024 2:43P Dictated by : JODI ARECHIGA MD This examination was interpreted and the report reviewed and electronically signed by: YARY MUNOZ MD on May 07 2024 3:31PM EST DIVISION OF [id number] NoteIMPRESSION: Evolution of now remote large left MCA territory infarct with progressive gliosis and volume loss compared to 11/10/2016. No acute findings on today's exam. Xhok-sy-ngsubb MRA demonstrates complete occlusion of the left internal carotid artery immediately after the common carotid bifurcation. 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 There is reconstitution of the left MCA via collateral flow via the left JENNIFER and left posterior communicating artery. Small saccular aneurysm approximately 2 mm in size projecting superiorly from the midportion of the anterior communicating artery. Immediately adjacent to this but separate from the dome is a small vessel which extends from the anterior communicating artery into the pericallosal area. (Series 100, images 138-144). Food Service Utility Worker: [facility] Transcribe Date/Time: May 07 2024 2:43P Dictated by : JODI ARECHIGA MD This examination was interpreted and the report reviewed and electronically signed by: YARY MUNOZ MD on May 07 2024 3:31PM EST DIVISION OF [id number] History of Present illness Narrative* Ricardo Irizarry, RT(R) - 05/07/2024 1:40 PM EDT Radiology Service Progress Note PATIENT NAME: Afshin Zee DATE OF SERVICE: May 07, 2024 TIME: 1:50 PM PATIENT IDENTITY VERIFICATION COMPLETED USING TWO (2) IDENTIFIERS: Name and Date of confirmedby patient verbally. FALL SCREENING: Has the patient had 2 falls in the last year or 1 fall with injury or currently using an Ambulatory Assistive Device (Walker, Cane, Wheelchair, Crutches, etc.)? Yes, Patient High Riskfor Falls What interventions were put in place to prevent falls during this visit? Instructed Patient to Callfor Help if Needed, Offered Assistance with Transfers/Clothing, Instructed Patient to Remain Seated(Not on Exam Table) Until Exam, and Increased Observations by Caregivers PATIENT GENDER DATA: Male PATIENT RELEVANT IMPLANT DATA REVIEWED: Yes PATIENT PRESENTS WITH AN IMPLANTABLE OR ATTACHED ADMISSIONS DEAN: No RADIOLOGY DEPARTMENT: MR; Exam(s) Completed: Head: Routine Brain [place] MRA Neck: Carotids MRA, bilateral PERIPHERAL IV DATA: Not applicable SIGNED BY: BERE Abraham) May 07, 2024 1:50 PM documented in this encounterProtestant [facility]10-03-2024 NoteHNO ID: [id number] Author: RICARDO IRIZARRY RT(R) Service: ? Author Type: Technologist Type: Progress Notes Filed: 05/07/2024 13:50 Note Text: Radiology Service Progress Note PATIENT NAME: Afshin Zee DATE OF SERVICE: May 07, 2024 TIME: 1:50 PM PATIENT IDENTITY VERIFICATION COMPLETED USING TWO (2) IDENTIFIERS: Name and Date of confirmed by patient verbally. FALL SCREENING: Has the patient had 2 falls in the last year or 1 fall with injury or currently using an Ambulatory Assistive Device (Walker, Cane, Wheelchair, Crutches, etc.)? Yes, Patient High Risk for Falls What interventions were put in place to prevent falls during this visit? Instructed Patient to Call for Help if Needed, Offered Assistance with Transfers/Clothing, Instructed Patient to Remain Seated (Not on Exam Table) Until Exam, and Increased Observations by Caregivers PATIENT GENDER DATA: Male PATIENT RELEVANT IMPLANT DATA REVIEWED: Yes PATIENT PRESENTS WITH AN IMPLANTABLE OR ATTACHED ADMISSIONS DEAN: No RADIOLOGY DEPARTMENT: MR; Exam(s) Completed: Head: Routine Brain [place] MRA Neck: Carotids MRA, bilateral PERIPHERAL IV DATA: Not applicable SIGNED BY: RT Leigh(R) May 07, 2024 1:50 [facility]10-02-2024 Telephone encounter Note* Telephone Encounter - Nikkie Prado APRN.CNP - 05/06/2024 3:19 PM EDT GoLytely sent to [facility]. [facility]10-02-2024 Miscellaneous Notes* Telephone Encounter - Nikkie Prado APRN.CNP - 05/06/2024 3:19 PM EDT GoLytely sent to [facility]. * Telephone Encounter - Sharon Hinojosa - 05/06/2024 2:53 PM EDT Per other telephone note patient only wanted to be with dr Cardoso the original date he was scheduled on 06/24 was to be with Walker. However the surgeons schedules changed and that day and it was allocated to Dr. Lai. Patient confirmed he was okay with 08/29 when I rescheduled procedure back on 04/30/2024. Attempted to reach patient today to confirm this again but was unsuccessful. Date is set for 06/29/2024 [address] [place] with Dr. Cardoso and times are NEVER given until the business day prior. Times on [facility] are not correct and subject to change. They will receive accurate arrival time the business dayprior. Left voicemail for patient and Eli to call me back directly at [phone] to go over information again. Patient is needing prep Golytely sent to [facility] in [place] as it was never sent originally. Sharon Hinojosa Ancillary Services Manager Therapy * Telephone Encounter - Lora James RN - 05/06/2024 2:31 PM EDT Patient's consult was with Dr. Lai on 02/24/2024, Ursula was advised for prep, however the patient is scheduled to have his colonoscopy with Dr. Cardoso. I do not see where the prep was sent to anypharmacy. A new prescription will need to be sent to [facility]. Also, I cannot confirm the time, could a home care scheduler please contact the patient's , Eli? Lora James RN May 06, 2024 2:33 PM * Telephone Encounter - Meka Mireles - 05/06/2024 10:35 AM EDT Pt spouse calling about getting information on Colonoscopy. She wants to be sure that the prep is sent to the right Pharmacy. [facility] no longer open, will want it to go to [facility]. She also wants to confirm the time is going to be 10 am arrival time as previously stated. documented in this encounterProtestant Hospital10-02-2024 Telephone encounter Note * Telephone Encounter - Sharon Hinojosa - 05/06/2024 2:53 PM EDT Per other telephone note patient only wanted to be with dr Cardoso the original date he was scheduled on 06/24 was to be with Walker. However the surgeons schedules changed and that day and it was allocated to Dr. Lai. Patient confirmed he was okay with 08/29 when I rescheduled procedure back on 04/30/2024. Attempted to reach patient today to confirm this again but was unsuccessful. Date is set for 06/29/[address] [place] [address]. Cardoso and times are NEVER given until the business day prior. [facility] are not correct and subject to change. They will receive accurate arrival time the business dayprior. Left voicemail for patient and Eli to call me back directly at [phone] to go over information again. Patient is needing prep Golytely sent to [facility] in [place] as it was never sent originally. Sharon Hinojosa Ancillary Services Manager Therapy [facility]10-02-[facility]24 Telephone encounter Note* Telephone Encounter - Lora James RN - 05/06/2024 2:31 PM EDT Patient's consult was with Dr. Lai on 02/24/2024, Ursula was advised for prep, however the patient is scheduled to have his colonoscopy with Dr. Cardoso. I do not see where the prep was sent to anypharmacy. A new prescription will need to be sent to [facility]. Also, I cannot confirm the time, could a home care scheduler please contact the patient's , Eli? Lora James RN May 06, 2024 2:33 PM [facility]10-02-[facility] Telephone encounter Note* Telephone Encounter - Meka Mireles - 05/06/2024 10:35 AM EDT Pt spouse calling about getting information on Colonoscopy. She wants to be sure that the prep is sent to the right Pharmacy. [facility], will want it to go to [facility]. She also wants to confirm the time is going to be 10 am arrival time as previously stated. [facility] Work Phone: [phone] Telephone encounter Note* Telephone Encounter - Deanne Neville LPN - 05/04/2024 8:51 AM EDT RX pended for 90 day supply. Deanne Neville LPN [facility]09-30-2024 Miscellaneous Notes* Telephone Encounter - Deanne Neville LPN - 05/04/2024 8:51 AM EDT RX pended for 90 day supply. Deanne Neville LPN documented in this encounterProtestant Hospital09-26-2024 Telephone encounter Note * Telephone Encounter - Sharon Hinojosa - 04/30/2024 11:06 AM EDT 06/24/2024 date has switched to Dr. Lai as the providers schedules has changed. Patient was aware new dates were coming based on new providers starting and others leaving Patient rescheduled to [facility] ONLY in [place] on 06/29/2024 Sharon Hinojosa Ancillary Services Manager Therapy [facility]09-26-2024 Miscellaneous Notes* Telephone Encounter - Sharon Hinojosa - 04/30/2024 11:06 AM EDT 06/24/2024 date has switched to Dr. Lai as the providers schedules has changed. Patient was aware new dates were coming based on new providers starting and others leaving Patient rescheduled to [facility] ONLY in [place] on 06/29/2024 Sharon Hinojosa Ancillary Services Manager Therapy * Telephone Encounter - Sharon Hinojosa - 02/25/2024 8:19 AM EDT Patient scheduled on 06/24/[address] [place] [address] Cardoso for scopes. Patient requesting new provider when she is able to start for a sooner date. Patient does not joelle Lai or Earline Hinojosa Ancillary Services Manager Therapy documented in this encounterProtestant Hospital09-05-2024 Telephone encounter Note * Telephone Encounter - Jaci Arroyo MD - 04/09/2024 2:43 PM EDT OK to refill as ordered Jaci Arroyo MD [facility]09-05-2024 Miscellaneous Notes* Telephone Encounter - Jaci Arroyo MD - 04/09/2024 2:43 PM EDT OK to refill as ordered Jaci Arroyo MD * Telephone Encounter - Loida Vazquez LPN - 04/09/2024 2:32 PM EDT Patient Eli lam is out of his Buspar rx. Pending rx to file. Please advise The patient has been identified by name and date of : Yes Caregiver verified no other encounters exist for this prescription request: Yes Caregiver confirmed with patient/requestor that no other refills are due, in the near future, with this provider at this time: Yes The last office visit in the department: 04/03/2024 Does the patient have a future office visit with this provider/department: No no future appt scheduled Requested Prescriptions Pending Prescriptions Disp Refills busPIRone (BUSPAR) 15 mg tablet 90 tablet 5 Sig: Take 1 tablet by mouth three times a day. Loida Vazquez LPN April 09, 2024 2:33 PM documented in this encounterProtestant Hospital09-05-2024 Telephone encounter Note * Telephone Encounter - Loida Vazquez LPN - 04/09/2024 2:32 PM EDT Patient Eli lam is out of his Buspar rx. Pending rx to file. Please advise The patient has been identified by name and date of : Yes Caregiver verified no other encounters exist for this prescription request: Yes Caregiver confirmed with patient/requestor that no other refills are due, in the near future, with this provider at this time: Yes The last office visit in the department: 04/03/2024 Does the patient have a future office visit with this provider/department: No no future appt scheduled Requested Prescriptions Pending Prescriptions Disp Refills busPIRone (BUSPAR) 15 mg tablet 90 tablet 5 Sig: Take 1 tablet by mouth three times a day. Loida Vazquez LPN April 09, 2024 2:33 PM [facility]08-30-2024 Telephone encounter Note* Telephone Encounter - Shefali Lyles LPN - 04/03/2024 4:36 PM EDT Images from the original note were not included. Electronic PA rec'd and completed for lorazepam. This was approved. Prior authorization approved Payer: [employer] [phone] Note from payer: CaseId:[id number];Status:Approved;Review Type:Prior Auth;Coverage Start Date:03/04/2024;Coverage End Date:04/03/2025; Approval Details Authorized from March 04, 2024 to April 03, 2025 Electronic appeal: Not supported View History Medication Being Authorized LORazepam (ATIVAN) 1 mg tablet Take 1-2 tablets by mouth three times a day as needed for anxiety for up to 45 days. Take 1-2 pillsthree times a day Dispense: 90 tablet Refills: 2 Start: 04/03/2024 End: 05/18/2024 Class: Normal Diagnoses: Anxiety, Chronic insomnia This order has been released to its destination. To be filled at: [id number] [place] [address] - [address] [phone] [id number] [facility]08-30-2024 Miscellaneous Notes* Telephone Encounter - Shefali Lyles LPN - 04/03/2024 4:36 PM EDT Images from the original note were not included. Electronic PA rec'd and completed for lorazepam. This was approved. Prior authorization approved Payer: [employer] [phone] Note from payer: CaseId:[id number];Status:Approved;Review Type:Prior Auth;Coverage Start Date:03/04/2024;Coverage End Date:04/03/2025; Approval Details Authorized from March 04, 2024 to April 03, 2025 Electronic appeal: Not supported View History Medication Being Authorized LORazepam (ATIVAN) 1 mg tablet Take 1-2 tablets by mouth three times a day as needed for anxiety for up to 45 days. Take 1-2 pillsthree times a day Dispense: 90 tablet Refills: 2 Start: 04/03/2024 End: 05/18/2024 Class: Normal Diagnoses: Anxiety, Chronic insomnia This order has been released to its destination. To be filled at: [id number] [place] [address] - [address] [facility] [phone] [id number] documented in this encounterProtestant Hospital08-30-2024 History of Present illness Narrative* Jaci Arroyo MD - 04/03/2024 4:20 PM EDT Images from the original note were not included. Afshin Zee is a 68 year old male here for a Medicare wellness visit. Medicare Health Risk Assessment General Health Exercise: Minutes/Day Exercise: Days/Week Alcohol: Daily Use Never Alcohol: Drinks/Day Patient does not drink Alcohol: 6 or more drinks Never Feel off balance Yes Concerns: Teeth/Dentures No Concerns: Sexual function No Troubled by feelings Irritable; Angry; Stressed; Anxious Frequency: Eating healthy diet Nearly every day ADLs requiring help None of the above Safety precautions in home/vehicle Yes Smoke, vape, chews tobacco No Difficulty hearing No Difficulty seeing No Current Providers Specialists: I have reviewed specialist-related care of the patient in the medical record. Current care team: Patient Care Team: Jaci Arroyo MD as PCP - General (Family Medicine) Robin Johansen MD (Cardiology) Espinoza Kimbrough MD as Physician (Thoracic Surgery) David Avila MD (Vascular Surgery) Medical/Family history review Reviewed and updated problem list, medical/surgical/family/social history, medications, and allergies. Opioid use review Opioid Medications (last 90 days) No data to display Anxiety/Depression screening PHQ-2 Score: 0 (Lower risk for depression) Recommendation: no further intervention at this time Cognitive screening Cognitive screening reviewed and Patient declined Mini-Cog test. Functional Observation Was the patient's Timed Up & Go test unsteady or ? 12 seconds? yes Advance Care Planning Patient did not wish or was not able to name a surrogate decision maker or provide an advance care plan Measurements BP 120/70 Pulse 68 Resp 16 Wt 84 kg (185 lb 3 oz) BMI 26.57 kg/m Vision Screening: Follows with optometry/ophthalmology Assessment/Plan Medicare annual wellness visit, initial (Z00.00) - Counseled on healthy diet and regular exercise - Fall avoidance information provided - Personalized prevention plan provided Jaci Arroyo MD Chief Complaint Patient presents with: F/U 3 Month HPI Afshin Zee is a 68 year old male who presents here today for a 3 month follow up. Pt here today with his for a routine follow up. Currently receiving PT/OT and Speech through [facility]. Hx of rectal mass, follow with Colorectal Provider, Dr. Sandoval. Pt was to have repeat colonoscopy completed in February with Dr. Cardoso, but this has not been completed. Seen Dr. Lai in February, is scheduled to see Dr. Cardoso in June. Was having some complaints of GI issues back on 02/03/24 with concern of stool infection. GERD: Stable with use of Pepcid 20 mg daily prn. ED: Uses Sildenafil prn for ED. Did not feel Cialis work for him. Anemia: Takes Ferosul 325 mg 1 tab po bid. This was increased by Neuro due to low levels and hopefully to help RLS symptoms. Anxiety/Moods/Insomnia: Chronic anxiety that is treated with Ativan 0.5 mg 1-2 tabs po TID, but states that he doesn't use it this much. Pt also taking Buspar 10 mg 1 tab po TID and Trazodone 100 mg at bedtime. states that he is more angry, irritable, morales lately. feels he needs a stronger dose of Ativan. She states there are times when he is screaming at her. Pt very loud and angry during office visit. feels that maybe he needs to be in a group home for a little while and do some out patient counseling. Pt is agreeable, he states he wants to be in a group home. Cardio: Hx of CAD, Afib and HTN. Follows with Dr. Tejeda in Cardiology. Checks BP at home, overall stable. Denies any chest pain, sob or dizziness. On current regimen of Eliquis 5 mg 1 tab po bid, Amlodipine 10 mg 0.5 tab po bid, ASSA 81 mg daily, Potasium 10 mEq 2 tabs po TID, Pacerone 100 mg 1 tab po once daily, Losartan 25 mg once daily and Lopressor 25 mg 0.5 tab po bid. CAD/Lipid/CVA: Follows with Neurology, Dr. Aj and Dena Bazan, OPERATIONS LABEL CLERK and Dr. Cruz in Vascular.Pt was to have sleep study done due to issues his CPAP masks, discussed Inspire device. P ton current regimen of Zetia 10 mg once daily, Eliquis 5 mg 1 tab po bid, Lipitor 40 mg once daily an ASA 81 mg daily. Pt is PT/OT and Speech due to CVA hx. [facility] OT provider set him up with [employer] that came out and fitted him for the hand stimulator. Unsure where to go to get stimulator now that thelady at [facility] is no longer there. Pulm: Follows with Dr. Mcgrath for COPD and hx of respiratory infection and pneumonia. Pt uses O2 at night. Overall from pt and Pulm, pt is stable currently. Denies any issues with breathing. Takes daily Stiolto Respimat and occasional use of Albuterol in the evening. Pt uses 4 L of O2 at night, receives supplies through [facility] [place]. Past medical history, appointments, medications, allergies reviewed. Previous Medical History PAST MEDICAL HISTORY No date: Acute cerebral infarction ([facility]) Comment: left No date: LEANN (acute kidney injury) ([facility]) No date: Anemia No date: Aneurysm ([facility]) No date: Anxiety state 11/2016: Atrial fibrillation ([facility]) No date: Balanitis No date: CAD (coronary artery disease) No date: Carotid stenosis No date: COPD (chronic obstructive pulmonary disease) ([facility]) No date: Dysphasia No date: Emphysema lung ([facility]) 03/2023: History of blood transfusion No date: Hypertension 03/2023: Hypoxia No date: DARON (obstructive sleep apnea) No date: PVD (peripheral vascular disease) ([facility]) No date: Respiratory failure ([facility]) Comment: hypoxic-ventilator dependent No date: Stroke (cerebrum) ([facility]) No date: Tobacco abuse Previous Surgical History PAST SURGICAL HISTORY 08/07/2023: ANKLE SURGERY HX; Right Comment: Dr. Kim. Right ankle ORIF due to fracture 10/30/2016: CABG CONSULT Comment: multi vessel 04/10/2023: COLONOSCOPY SCREENING 04/11/2023: EGD W/O BRSH SPEC VARICIES INJ 04/10/2023: EGD W/O BRSH SPEC VARICIES INJ 09/17/2016: HEART CATHETERIZATION 2017: PAST SURGICAL HISTORY OF Comment: Aneurysm and stent surgery related to stroke No date: TRACHEOSTOMY HX Family History FAMILY HISTORY Problem Relation Age of Onset Heart Mother [place] in her 70s, pacemaker Diabetes Mother Stroke Father other (AAA) Father other (CAD) Brother Hypertension Brother Patient Allergies ALLERGIES Allergen Reactions Lisinopril Swelling, Angioedema Lip swelling after starting lisinopril. Doxycycline GI Upset, Other: See Comments GI upset (stomach ache/cramping/diarrhea) and splotchy face Sulfa (Sulfonamide * Hives Zpak [Azithromycin] Hives Current Medications Current Outpatient Medications on File Prior to Visit Medication Sig multivitamin tablet Take 1 tablet by mouth once daily. potassium chloride (K-TAB) 10 mEq tablet Take 2 tablets by mouth three times a day. albuterol (PROVENTIL) 2.5 mg /3 mL (0.083 %) nebulizer solution INHALE 1 VIAL VIA NEBULIZER EVERY 4HOURS NEEDED FOR WHEEZING/SHORTNESS OF BREATH. USE OVER 5-15 MINUTES clotrimazole-betamethasone (LOTRISONE) cream Apply to affected area two times a day. clopidogrel (PLAVIX) 75 mg tablet Take 1 tablet by mouth once daily. amLODIPine (NORVASC) 10 mg tablet Take 0.5 tablets by mouth two times a day. Take 1/2 tablet twice daily ezetimibe (ZETIA) 10 mg tablet Take 1 tablet by mouth once daily. losartan (COZAAR) 25 mg tablet Take 1 tablet by mouth once daily. ferrous sulfate (FEROSUL) 325 mg (65 mg iron) tablet Take 1 tablet by mouth two times a day. amiodarone (PACERONE) 100 mg tablet TAKE 1 TABLET BY MOUTH ONCE DAILY *DO NOT TAKE IF HEART RATE ISLESS THAN 40* atorvastatin (LIPITOR) 40 mg tablet take 1 tablet by mouth once daily famotidine (PEPCID) 20 mg tablet take 1 tablet by mouth at bedtime as needed (Patient not taking: Reported on 03/23/2024) escitalopram oxalate (LEXAPRO) 20 mg tablet take 1 tablet by mouth once daily apixaban (ELIQUIS) 5 mg tab(s) take 1 tablet by mouth twice daily LORazepam (ATIVAN) 0.5 mg Take 1-2 tablets by mouth three times a day as needed for up to 90 days. metoprolol tartrate, short acting, (LOPRESSOR) 25 mg tablet TAKE 1/2 TABLET BY MOUTH TWICE DAILY. HOLD IF HEART RATE IS LESS THAN 60 busPIRone (BUSPAR) 15 mg tablet Take 1 tablet by mouth three times a day. acetaminophen (TYLENOL EXTRA STRENGTH) 500 mg tablet Take 2 tablets by mouth three times a day as needed for pain. zinc oxide 20 % ointment Apply to affected area as needed. sildenafil (VIAGRA) 100 mg tablet Take 1 tablet by mouth once daily as needed. Take 30-60 minutes before sexual activity. (Patient not taking: Reported on 03/09/2024) tiotropium-olodaterol (STIOLTO RESPIMAT) 2.5-2.5 mcg/actuation Inhale 2 Puffs as instructed once daily. traZODone (DESYREL) 100 mg tablet Take 1 tablet by mouth daily at bedtime. albuterol HFA (PROVENTIL HFA, VENTOLIN HFA) 90 mcg/actuation inhaler Inhale 2 Puffs as instructed every 4 hours as needed. baclofen 10 mg tablet TAKE 1/2 TABLET BY MOUTH THREE TIMES A DAY aspirin, enteric coated (ASPIRIN, ENTERIC COATED) 81 mg EC tablet Take 81 mg by mouth once daily. fluticasone (FLONASE) 50 mcg/actuation nasal spray Use 1 [place] in each nostril twice daily. Rinse mouth after use. Blood Pressure Monitor kit 1 application twice daily. Measure patient for correct size. Patient needs cuff for left arm readings. COMPOUNDED PRESCRIPTION Articulating AFO foot brace for right leg. Send to [facility]. Dx: I63.9 COMPOUNDED PRESCRIPTION EMBER WALKER DX I63.9 weight 162 # No current facility-administered medications on file prior to visit. Social History Social History Tobacco Use Smoking status: Former Current packs/day: 0.00 Average packs/day: 2.0 packs/day for 45.0 years (90.0 ttl pk-yrs) Types: Cigarettes Start date: 07/08/1971 Quit date: 07/08/2016 Years since quittin.7 Smokeless tobacco: Never Tobacco comments: 07/08/2016 Vaping Use Vaping status: Never Used Substance Use Topics Alcohol use: No Drug use: Never EXAM: BP 120/70 Pulse 68 Resp 16 Wt 84 kg (185 lb 3 oz) BMI 26.57 kg/m General Appearance: Well appearing, alert, in no acute distress, well-hydrated, well nourished..Wheelchair. Lungs: Lungs clear to auscultation. No wheezing, rhonchi, rales.. Heart: RRR without murmur, gallop, or rubs. No ectopy. Health Maintenance List Abdominal Aortic Aneurysm Screening Never done Alpha-1 Antitrypsin Deficiency Screening Never done Lung Cancer Screening Never done Shingrix Vaccine(1 of 2) Never done Prostate Cancer Screening Discussion due on 06/03/2015 Covid-19 Vaccine( season) due on 10/10/2023 Hepatitis C Screening due on 12/30/2024 Influenza Vaccine(1) due on 04/05/2024 Depression Screening due on 12/30/2024 BP Controlled (<130/80) due on 03/23/2025 LDL Cholesterol due on 04/02/2025 Serum Creatinine due on 04/02/2025 Annual PCP Team Chronic Disease Visit due on 04/03/2025 Diabetes Screening due on 04/02/2027 Colorectal Cancer Screening due on 06/19/2028 Lipid Screening due on 04/02/2029 DTaP,Tdap,Td Vaccine(2 - Td or Tdap) due on 05/10/2031 Spirometry Completed Advance Directive Discussion Completed RSV Vaccine Completed Pneumococcal Vaccine: 65+ Completed Data reviewed Appointment on 04/02/2024 Component Date Value Ferritin 04/02/2024 68.0 Iron 04/02/2024 112 TIBC 04/02/2024 295 Transferrin Saturation 04/02/2024 38.0 Protein, Total 04/02/2024 6.6 Albumin 04/02/2024 4.0 Calcium, Total 04/02/2024 8.7 Bilirubin, Total 04/02/2024 0.8 Alkaline Phosphatase 04/02/2024 113 AST 04/02/2024 18 ALT 04/02/2024 18 Glucose 04/02/2024 91 BUN 04/02/2024 15 Creatinine 04/02/2024 1.28 (H) Sodium 04/02/2024 141 Potassium 04/02/2024 4.5 Chloride 04/02/2024 105 CO2 04/02/2024 27 Anion Gap 04/02/2024 9 Estimated Glomerular Marco Antonio* 04/02/2024 61 Cholesterol, Total 04/02/2024 122 Triglyceride 04/02/2024 121 HDL Cholesterol 04/02/2024 37 (L) Non HDL Cholesterol 04/02/2024 85 Fasting Time 04/02/2024 12 VLDL Cholesterol 04/02/2024 24 TC:HDL Ratio 04/02/2024 3.30 LDL Cholesterol 04/02/2024 61 LDL:HDL Ratio 04/02/2024 1.65 TSH 04/02/2024 1.420 ASSESSMENT/PLAN: 1. Medicare annual wellness visit, initial - ICD9: V70.0, ICD10: Z00.00 (primary diagnosis) - Counseled on healthy diet and regular exercise - Discussed need for and benefit of weight loss. BMI 26.57 kg/(m^2) - Follow up for annual exam in one year 2. Mixed hyperlipidemia - ICD9: 272.2, ICD10: E78.2 - Control undetermined, due for labs - Continue current medications - Counseled on healthy diet and regular exercise - Discussed need for and benefit of weight loss. BMI 26.57 kg/(m^2) 3. Anxiety - ICD9: 300.00, ICD10: F41.9 Worsened Increase Ativan to 1 mg 1-2 pills TID Continue current medications. Can consider Respite care or group home placement 4. Coronary artery disease involving [place] coronary artery of [place] heart without angina pectoris- ICD9: 414.01, ICD10: I25.10 Continue current medications. 5. Essential hypertension - ICD9: 401.9, ICD10: I10 - Controlled - Continue current medications - Recommend home blood pressure monitoring, to bring results to next visit - Encouraged sodium restriction, DASH or Mediterranean diet - Recommend regular aerobic exercise 6. Chronic insomnia - ICD9: 780.52, ICD10: F51.04 Continue current medications. 7. Paroxysmal atrial fibrillation (HCC) - ICD9: 427.31, ICD10: I48.0 Continue current medications. 8. Bradycardia - ICD9: 427.89, ICD10: R00.1 Continue current medications. 9. 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) - ICD9: 434.11, ICD10: I63.132 Continue current medications. Continue with Neuro Dr. jA Follow up as needed. Medical Decision Making: Problems: Moderate: 1+ chronic illnesses with change and 2+ stable chronic illnesses Risk: Moderate: Drug management Medical Decision Making Level: 4 - Moderate The documentation for this note was completed by Monica Cruz MA acting as scribe for Jaci Arroyo MD. April 03, 2024 4:05 PM. Monica Cruz MA documented in this encounterProtestant Hospital08-30-2024 NoteHNO ID: [id number] Author: JACI ARROYO MD Service: ? Author Type: Physician Type: Progress Notes Filed: 04/03/2024 17:38 Note Text: Afshin Zee is a 68 year old male here for a Medicare wellness visit. Medicare Health Risk Assessment General Health Exercise: Minutes/Day Exercise: Days/Week Alcohol: Daily Use Never Alcohol: Drinks/Day Patient does not drink Alcohol: 6 or more drinks Never Feel off balance Yes Concerns: Teeth/Dentures No Concerns: Sexual function No Troubled by feelings Irritable; Angry; Stressed; Anxious Frequency: Eating healthy diet Nearly every day ADLs requiring help None of the above Safety precautions in home/vehicle Yes Smoke, vape, chews tobacco No Difficulty hearing No Difficulty seeing No Current Providers Specialists: I have reviewed specialist-related care of the patient in the medical record. Current care team: Patient Care Team: Jaci Arroyo MD as PCP - General (Family Medicine) Robin Johansen MD (Cardiology) Espinoza Kimbrough MD as Physician (Thoracic Surgery) David Avila MD (Vascular Surgery) Medical/Family history review Reviewed and updated problem list, medical/surgical/family/social history, medications, and allergies. Opioid use review Opioid Medications (last 90 days) No data to display Anxiety/Depression screening PHQ-2 Score: 0 (Lower risk for depression) Recommendation: no further intervention at this time Cognitive screening Cognitive screening reviewed and Patient declined Mini-Cog test. Functional Observation Was the patient's Timed Up AND Go test unsteady or ? 12 seconds? yes Advance Care Planning Patient did not wish or was not able to name a surrogate decision maker or provide an advance care plan Measurements BP 120/70 Pulse 68 Resp 16 Wt 84 kg (185 lb 3 oz) BMI 26.57 kg/m? Vision Screening: Follows with optometry/ophthalmology Assessment/Plan Medicare annual wellness visit, initial (Z00.00) - Counseled on healthy diet and regular exercise - Fall avoidance information provided - Personalized prevention plan provided Jaci Arroyo MD Chief Complaint Patient presents with: F/U 3 Month HPI Afshin Zee is a 68 year old male who presents here today for a 3 month follow up. Pt here today with his for a routine follow up. Currently receiving PT/OT and Speech through [facility]. Hx of rectal mass, follow with Colorectal Provider, Dr. Sandoval. Pt was to have repeat colonoscopy completed in February with Dr. Cardoso, but this has not been completed. Seen Dr. Lai in February, is scheduled to see Dr. Cardoso in June. Was having some complaints of GI issues back on 02/03/24 with concern of stool infection. GERD: Stable with use of Pepcid 20 mg daily prn. ED: Uses Sildenafil prn for ED. Did not feel Cialis work for him. Anemia: Takes Ferosul 325 mg 1 tab po bid. This was increased by Neuro due to low levels and hopefully to help RLS symptoms. Anxiety/Moods/Insomnia: Chronic anxiety that is treated with Ativan 0.5 mg 1-2 tabs po TID, but states that he doesn't use it this much. Pt also taking Buspar 10 mg 1 tab po TID and Trazodone 100 mg at bedtime. states that he is more angry, irritable, morales lately. feels he needs a stronger dose of Ativan. She states there are times when he is screaming at her. Pt very loud and angry during office visit. feels that maybe he needs to be in a group home for a little while and do some out patient counseling. Pt is agreeable, he states he wants to be in a group home. Cardio: Hx of CAD, Afib and HTN. Follows with Dr. Tejeda in Cardiology. Checks BP at home, overall stable. Denies any chest pain, sob or dizziness. On current regimen of Eliquis 5 mg 1 tab po bid, Amlodipine 10 mg 0.5 tab po bid, ASSA 81 mg daily, Potasium 10 mEq 2 tabs po TID, Pacerone 100 mg 1 tab po once daily, Losartan 25 mg once daily and Lopressor 25 mg 0.5 tab po bid. CAD/Lipid/CVA: Follows with Neurology, Dr. Aj and Dena Bazan, ESTELLA and Dr. Cruz in Vascular. Pt was to have sleep study done due to issues his CPAP masks, discussed Inspire device. P ton current regimen of Zetia 10 mg once daily, Eliquis 5 mg 1 tab po bid, Lipitor 40 mg once daily an ASA 81 mg daily. Pt is PT/OT and Speech due to CVA hx. [facility] OT provider set him up with [employer] that came out and fitted him for the hand stimulator. Unsure where to go to get stimulator now that the lady at [facility] is no longer there. Pulm: Follows with Dr. Mcgrath for COPD and hx of respiratory infection and pneumonia. Pt uses O2 at night. Overall from pt and Pulm, pt is stable currently. Denies any issues with breathing. Takes daily Stiolto Respimat and occasional use of Albuterol in the evening. Pt uses 4 L of O2 at night, receives supplies through [facility] [place]. Past medical history, appointments, medications, allergies reviewed. Previous Me (more content not included)...[facility]08-28-2024 Telephone encounter Note* Telephone Encounter - Chelly Cordero LPN - 04/01/2024 9:51 AM EDT calling to check and see if lab orders for pt are fasting and if he can drink water. Advised her they are fasting orders and that he may drink water. She verbalizes understanding. Advises that she won't be able to bring him in until tomorrow. Pt has appointment Saturday with PCP. Advised her theearlier in the am they can come the better chance the results will be back in time for pt's appointment. She verbalizes understanding. Chelly Cordero LPN [facility]08-28-2024 Miscellaneous Notes* Telephone Encounter - Chelly Cordero LPN - 04/01/2024 9:51 AM EDT calling to check and see if lab orders for pt are fasting and if he can drink water. Advised her they are fasting orders and that he may drink water. She verbalizes understanding. Advises that she won't be able to bring him in until tomorrow. Pt has appointment Saturday with PCP. Advised her theearlier in the am they can come the better chance the results will be back in time for pt's appointment. She verbalizes understanding. Chelly Cordero LPN documented in this encounterProtestant Hospital08-27-2024 Telephone encounter Note * Telephone Encounter - Jaci Arroyo MD - 03/31/2024 4:16 PM EDT OK to refill as ordered Jaci Arroyo MD [facility]08-27-2024 Miscellaneous Notes* Telephone Encounter - Jaci Arroyo MD - 03/31/2024 4:16 PM EDT OK to refill as ordered Jaci Arroyo MD * Telephone Encounter - Karen Pepper - 03/31/2024 2:34 PM EDT Prescription Refill Information The patient has been identified by name and date of : Yes Caregiver verified no other encounters exist for this prescription request: Yes Caregiver confirmed with patient/requestor that no other refills are due, in the near future, with this provider at this time: Yes The last office visit in the department: 12/31/2023 Does the patient have a future office visit with this provider/department: Yes Requested Prescriptions Pending Prescriptions Disp Refills baclofen 10 mg tablet 45 tablet 11 Karen Shantelle March 31, 2024 2:34 PM documented in this encounterProtestant Hospital08-27-2024 Telephone encounter Note * Telephone Encounter - Karen Pepper - 03/31/2024 2:34 PM EDT Prescription Refill Information The patient has been identified by name and date of : Yes Caregiver verified no other encounters exist for this prescription request: Yes Caregiver confirmed with patient/requestor that no other refills are due, in the near future, with this provider at this time: Yes The last office visit in the department: 12/31/2023 Does the patient have a future office visit with this provider/department: Yes Requested Prescriptions Pending Prescriptions Disp Refills baclofen 10 mg tablet 45 tablet 11 Karen Shantelle March 31, 2024 2:34 PM [facility]08-19-[facility] Instructions* Patient Instructions* Kimo Mcgrath MD - 03/23/2024 2:56 PM EDT Due for Lung Cancer Screening Chest CT at [facility] in May documented in this encounterProtestant Hospital08-19-2024 History of Present illness Narrative* Kimo Mcgrath MD - 03/23/2024 2:45 PM EDT Images from the original note were not included. . [facility] [place] Note Patient name: Afshin Zee PCP: Jaci Arroyo MD CC: Follow-up COPD HPI: Afshin Zee 68 year old male former [id number] smoker, quitting in 2016 with PMH significantfor AF on amiodarone, CVA with late effects, CAD s/p CABG, PAD, HTN, CKD, emphysema, DARON not on CPAP, nocturnal oxygen requirement presenting for follow-up. He has a history of previous tracheostomy tube following his stroke but was able to be decannulated. Current inhaled therapy consists of Stiolto Respimat with as needed albuterol. Last lung cancer screening at [facility] negative for any suspicious lesions. From a respiratory standpoint his states that he has been doing well. He has no specific complaints today. He is on Stiolto Respimat. She states that he will occasionally require albuterol in the evening. Since his last office visit he did sustain a fall and broke his ankle, requiring open reduction internal fixation. He has respiratory infection or pneumonia. DME: [employer] 4 L nocturnal oxygen DATA: Imaging / Diagnostic Studies: 05/22/2023, 2:56 PM [facility] Low Dose CT Lung Screening NODULES: No suspicious nodules are seen. Emphysema: Hyperinflation. Emphysematous changes. Stable increased linear markings with areas of confluence in the anterior right upper lobe suggestive of a scarring. Mild degree of bronchiectasis inthe perihilar regions bilaterally. Mild linear scarring in the lingular segment of the left upper lobe. Endobronchial lesion: None Aorta: Atherosclerotic calcification of the aortic arch. CORONARY ARTERIES: Coronary artery calcification is seen. Status post CABG. Heart: Unremarkable. Pulmonary artery: Unremarkable. Mediastinal nodes: Unremarkable Other chest and abdominal findings: Stable cyst in the posterior midportion of the right kidney. CT/Low Dose CT Lung Screening IMPRESSION: Lung-RADS category 2 - Continue annual screening with LDCT in 12 months. Review of imaging shows emphysema and right upper lobe scar PAST MEDICAL HISTORY No date: Acute cerebral infarction (HCC) Comment: left No date: LEANN (acute kidney injury) (HCC) No date: Anemia No date: Aneurysm (HCC) No date: Anxiety state 11/2016: Atrial fibrillation (HCC) No date: Balanitis No date: CAD (coronary artery disease) No date: Carotid stenosis No date: COPD (chronic obstructive pulmonary disease) (HCC) No date: Dysphasia No date: Emphysema lung (HCC) 03/2023: History of blood transfusion No date: Hypertension 03/2023: Hypoxia No date: DARON (obstructive sleep apnea) No date: PVD (peripheral vascular disease) ([facility]) No date: Respiratory failure ([facility]) Comment: hypoxic-ventilator dependent No date: Stroke (cerebrum) ([facility]) No date: Tobacco abuse ALLERGIES Allergen Reactions Lisinopril Swelling, Angioedema Lip swelling after starting lisinopril. Doxycycline GI Upset, Other: See Comments GI upset (stomach ache/cramping/diarrhea) and splotchy face Sulfa (Sulfonamide * Hives Zpak [Azithromycin] Hives multivitamin tablet Take 1 tablet by mouth once daily. potassium chloride (K-TAB) 10 mEq tablet Take 2 tablets by mouth three times a day. albuterol (PROVENTIL) 2.5 mg /3 mL (0.083 %) nebulizer solution INHALE 1 VIAL VIA NEBULIZER EVERY 4HOURS NEEDED FOR WHEEZING/SHORTNESS OF BREATH. USE OVER 5-15 MINUTES clopidogrel (PLAVIX) 75 mg tablet Take 1 tablet by mouth once daily. amLODIPine (NORVASC) 10 mg tablet Take 0.5 tablets by mouth two times a day. Take 1/2 tablet twice daily ezetimibe (ZETIA) 10 mg tablet Take 1 tablet by mouth once daily. losartan (COZAAR) 25 mg tablet Take 1 tablet by mouth once daily. ferrous sulfate (FEROSUL) 325 mg (65 mg iron) tablet Take 1 tablet by mouth two times a day. amiodarone (PACERONE) 100 mg tablet TAKE 1 TABLET BY MOUTH ONCE DAILY *DO NOT TAKE IF HEART RATE ISLESS THAN 40* atorvastatin (LIPITOR) 40 mg tablet take 1 tablet by mouth once daily escitalopram oxalate (LEXAPRO) 20 mg tablet take 1 tablet by mouth once daily apixaban (ELIQUIS) 5 mg tab(s) take 1 tablet by mouth twice daily metoprolol tartrate, short acting, (LOPRESSOR) 25 mg tablet TAKE 1/2 TABLET BY MOUTH TWICE DAILY. HOLD IF HEART RATE IS LESS THAN 60 busPIRone (BUSPAR) 15 mg tablet Take 1 tablet by mouth three times a day. tiotropium-olodaterol (STIOLTO RESPIMAT) 2.5-2.5 mcg/actuation Inhale 2 Puffs as instructed once daily. traZODone (DESYREL) 100 mg tablet Take 1 tablet by mouth daily at bedtime. albuterol HFA (PROVENTIL HFA, VENTOLIN HFA) 90 mcg/actuation inhaler Inhale 2 Puffs as instructed every 4 hours as needed. baclofen 10 mg tablet TAKE 1/2 TABLET BY MOUTH THREE TIMES A DAY aspirin, enteric coated (ASPIRIN, ENTERIC COATED) 81 mg EC tablet Take 81 mg by mouth once daily. fluticasone (FLONASE) 50 mcg/actuation nasal spray Use 1 [place] in each nostril twice daily. Rinse mouth after use. clotrimazole-betamethasone (LOTRISONE) cream Apply to affected area two times a day. famotidine (PEPCID) 20 mg tablet take 1 tablet by mouth at bedtime as needed (Patient not taking: Reported on 03/23/2024) LORazepam (ATIVAN) 0.5 mg Take 1-2 tablets by mouth three times a day as needed for up to 90 days. acetaminophen (TYLENOL EXTRA STRENGTH) 500 mg tablet Take 2 tablets by mouth three times a day as needed for pain. zinc oxide 20 % ointment Apply to affected area as needed. sildenafil (VIAGRA) 100 mg tablet Take 1 tablet by mouth once daily as needed. Take 30-60 minutes before sexual activity. (Patient not taking: Reported on 03/09/2024) Blood Pressure Monitor kit 1 application twice daily. Measure patient for correct size. Patient needs cuff for left arm readings. COMPOUNDED PRESCRIPTION Articulating AFO foot brace for right leg. Send to [employer]. Dx: I63.9 COMPOUNDED PRESCRIPTION EMBER WALKER DX I63.9 weight 162 # Social History Tobacco Use Smoking status: Former Current packs/day: 0.00 Average packs/day: 2.0 packs/day for 45.0 years (90.0 ttl pk-yrs) Types: Cigarettes Start date: 07/08/1971 Quit date: 07/08/2016 Years since quittin.7 Smokeless tobacco: Never Tobacco comments: 07/08/2016 Vaping Use Vaping status: Never Used Substance Use Topics Alcohol use: No Drug use: Never FAMILY HISTORY Problem Relation Age of Onset Heart Mother [place] in her 70s, pacemaker Diabetes Mother Stroke Father other (AAA) Father other (CAD) Brother Hypertension Brother PAST SURGICAL HISTORY 08/07/2023: ANKLE SURGERY HX; Right Comment: Dr. Kim. Right ankle ORIF due to fracture 10/30/2016: CABG CONSULT Comment: multi vessel 04/10/2023: COLONOSCOPY SCREENING 04/11/2023: EGD W/O RUST SPEC VARICIES INJ 04/10/2023: EGD W/O RUST SPEC VARICIES INJ 09/17/2016: HEART CATHETERIZATION 2017: PAST SURGICAL HISTORY OF Comment: Aneurysm and stent surgery related to stroke No date: TRACHEOSTOMY HX PMH, Social history, family history and surgical history reviewed and updated in EMR REVIEW OF SYSTEMS: CONSTITUTIONAL: No fevers, chills, nightsweats, unintended weight loss CARDIOVASCULAR: No chest pain, dyspnea, palpitations, edema. PULM: See HPI NEURO: No new issues INTEGUMENTARY: No new skin changes PHYSICAL EXAMINATION: BP 112/64, pulse 80, RR 16, SpO2 96% on room air General Appearance: Age-appropriate male, NAD, wheelchair. Skin: Skin color, texture, turgor normal, no suspicious rashes or lesions. Head: Normocephalic, no masses, lesions, tenderness or abnormalities. Eyes: Sclera, conjunctiva normal. Neck: No JVD, no masses, no. Lungs: Labored, normal to percussion, no wheezes or crackles. Heart: Regular rate and rhythm, no murmurs or gallop. Extremities: No edema or clubbing Assessment/Plan: 1. Moderate COPD -COPD controlled. He will continue with Stiolto Respimat and as needed albuterol 2. Former cigarette smoker -Former heavy smoker with sequelae of emphysema -Continue abstinence -Due for lung cancer screening in May. Fax order to [facility] 3. Dependence on nocturnal oxygen -No daytime oxygen need -Patient is compliant with and benefits from supplemental oxygen at night. Kimo Mcgrath MD [facility] [place] documented in this encounterProtestant Hospital08-19-2024 NoteHNO ID: [id number] Author: KIMO MCGRATH MD Service: ? Author Type: Physician Type: Progress Notes Filed: 03/23/2024 15:36 Note Text: . [facility] [place] Note Patient name: Afshin Zee PCP: Jaci Arroyo MD CC: Follow-up COPD HPI: Afshin Zee 68 year old male former [id number] smoker, quitting in 2016 with PMH significant for AF on amiodarone, CVA with late effects, CAD s/p CABG, PAD, HTN, CKD, emphysema, DARON not on CPAP, nocturnal oxygen requirement presenting for follow-up. He has a history of previous tracheostomy tube following his stroke but was able to be decannulated. Current inhaled therapy consists of Stiolto Respimat with as needed albuterol. Last lung cancer screening at [facility] negative for any suspicious lesions. From a respiratory standpoint his states that he has been doing well. He has no specific complaints today. He is on Stiolto Respimat. She states that he will occasionally require albuterol in the evening. Since his last office visit he did sustain a fall and broke his ankle, requiring open reduction internal fixation. He has respiratory infection or pneumonia. DME: [employer] 4 L nocturnal oxygen DATA: Imaging / Diagnostic Studies: 05/22/2023, 2:56 PM [facility] Low Dose CT Lung Screening NODULES: No suspicious nodules are seen. Emphysema: Hyperinflation. Emphysematous changes. Stable increased linear markings with areas of confluence in the anterior right upper lobe suggestive of a scarring. Mild degree of bronchiectasis in the perihilar regions bilaterally. Mild linear scarring in the lingular segment of the left upper lobe. Endobronchial lesion: None Aorta: Atherosclerotic calcification of the aortic arch. CORONARY ARTERIES: Coronary artery calcification is seen. Status post CABG. Heart: Unremarkable. Pulmonary artery: Unremarkable. Mediastinal nodes: Unremarkable Other chest and abdominal findings: Stable cyst in the posterior midportion of the right kidney. CT/Low Dose CT Lung Screening IMPRESSION: Lung-RADS category 2 - Continue annual screening with LDCT in 12 months. Review of imaging shows emphysema and right upper lobe scar PAST MEDICAL HISTORY No date: Acute cerebral infarction (HCC) Comment: left No date: LEANN (acute kidney injury) (HCC) No date: Anemia No date: Aneurysm (HCC) No date: Anxiety state 11/2016: Atrial fibrillation (HCC) No date: Balanitis No date: CAD (coronary artery disease) No date: Carotid stenosis No date: COPD (chronic obstructive pulmonary disease) (HCC) No date: Dysphasia No date: Emphysema lung (HCC) 03/2023: History of blood transfusion No date: Hypertension 03/2023: Hypoxia No date: DARON (obstructive sleep apnea) No date: PVD (peripheral vascular disease) ([facility]) No date: Respiratory failure ([facility]) Comment: hypoxic-ventilator dependent No date: Stroke (cerebrum) ([facility]) No date: Tobacco abuse ALLERGIES Allergen Reactions Lisinopril Swelling, Angioedema Lip swelling after starting lisinopril. Doxycycline GI Upset, Other: See Comments GI upset (stomach ache/cramping/diarrhea) and splotchy face Sulfa (Sulfonamide * Hives Zpak [Azithromycin] Hives multivitamin tablet Take 1 tablet by mouth once daily. potassium chloride (K-TAB) 10 mEq tablet Take 2 tablets by mouth three times a day. albuterol (PROVENTIL) 2.5 mg /3 mL (0.083 %) nebulizer solution INHALE 1 VIAL VIA NEBULIZER EVERY 4 HOURS NEEDED FOR WHEEZING/SHORTNESS OF BREATH. USE OVER 5-15 MINUTES clopidogrel (PLAVIX) 75 mg tablet Take 1 tablet by mouth once daily. amLODIPine (NORVASC) 10 mg tablet Take 0.5 tablets by mouth two times a day. Take 1/2 tablet twice daily ezetimibe (ZETIA) 10 mg tablet Take 1 tablet by mouth once daily. losartan (COZAAR) 25 mg tablet Take 1 tablet by mouth once daily. ferrous sulfate (FEROSUL) 325 mg (65 mg iron) tablet Take 1 tablet by mouth two times a day. amiodarone (PACERONE) 100 mg tablet TAKE 1 TABLET BY MOUTH ONCE DAILY *DO NOT TAKE IF HEART RATE IS LESS THAN 40* atorvastatin (LIPITOR) 40 mg tablet take 1 tablet by mouth once daily escitalopram oxalate (LEXAPRO) 20 mg tablet take 1 tablet by mouth once daily apixaban (ELIQUIS) 5 mg tab(s) take 1 tablet by mouth twice daily metoprolol tartrate, short acting, (LOPRESSOR) 25 mg tablet TAKE 1/2 TABLET BY MOUTH TWICE DAILY. HOLD IF HEART RATE IS LESS THAN 60 busPIRone (BUSPAR) 15 mg tablet Take 1 tablet by mouth three times a day. tiotropium-olodaterol (STIOLTO RESPIMAT) 2.5-2.5 mcg/actuation Inhale 2 Puffs as instructed once daily. traZODone (DESYREL) 100 mg tablet Take 1 tablet by mouth daily at bedtime. albuterol HFA (PROVENTIL HFA, VENTOLIN HFA) 90 mcg/actuation inhaler Inhale 2 Puffs as instructed every 4 hours as needed. baclofen 10 mg tablet TAKE 1/2 TABLET BY MOUTH THREE TIMES A DAY aspirin, enteric coated (ASPIRIN, ENTERIC COATED) 81 mg EC (more content not included)...[facility]08-07-2024 Telephone encounter Note* Telephone Encounter - Alessia Jay OCCA - 03/11/2024 12:32 PM EDT TC to patients to clarify that form must be completed for medical records to put images on a disc and mail them to her as she was instructed by imaging department. Informed that we are not able to provide a disc of images here at the office. Patient verbalized understanding and will follow directions given to her by [facility]. JANINA Iglesias [facility]08-07-2024 Miscellaneous Notes* Telephone Encounter - Alessia Jay OCCA - 03/11/2024 12:32 PM EDT TC to patients to clarify that form must be completed for medical records to put images on a disc and mail them to her as she was instructed by imaging department. Informed that we are not able to provide a disc of images here at the office. Patient verbalized understanding and will follow directions given to her by [facility]. JANINA Iglesias * Telephone Encounter - Amaya Kessler RN - 03/11/2024 12:03 PM EDT Patient's Eli calling to give Dr. Aj a message. Eli states patient had appt with Dr. Aj this past Saturday and there was discussion about her getting a disc of pt's Brain CT imaging from October of [address]. [address] Aj stated it should be too difficult to get it. states she called [facility] about getting the disc and reports I am getting the run around and they are making this difficult. Eli reports she was informed by [facility] to complete further information of the disc request online and she states she does not want to do that. She states she should be able to get this disc easily because she is the POA. She is wishing to have Dr. Aj's involvement in getting this disc. Please call patient to discuss further. Thank you. documented [facility] Telephone encounter Note * Telephone Encounter - Amaya Kessler RN - 03/11/2024 12:03 PM EDT Patient's Eli calling to give Dr. Aj a message. Eli states patient had appt with Dr. Aj this past Saturday and there was discussion about her getting a disc of pt's Brain CT imaging from October of [address]. [address] Aj stated it should be too difficult to get it. states she called [facility] about getting the disc and reports I am getting the run around and they are making this difficult. Eli reports she was informed by [facility] to complete further information of the disc request online and she states she does not want to do that. She states she should be able to get this disc easily because she is the POA. She is wishing to have Dr. Aj's involvement in getting this disc. Please call patient to discuss further. Thank you. [facility]08-05-2024 History of Present illness Narrative* Dania Aj Jr., MD - 03/09/2024 3:51 PM EDT NEW PATIENT (CONSULT) HISTORY AND PHYSICAL EXAM PRIMARY CARE PHYSICIAN: Jaci Arroyo MD REASON FOR CONSULT: History of stroke REFERRING PHYSICIAN: No ref. provider found CHIEF COMPLAINT: Need for stroke follow up. Consultation requested by No ref. provider found for an opinion regarding chief complaint of Patient presents with: New Patient: Hx of stroke, occurred in 2016, was seen at [facility] had another CVA and 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 carotid artery and my final recommendations will be communicated back to the requesting physician by way of sharedmedical record or letter via [place] mail. HISTORY OF PRESENT ILLNESS: Afshin Zee is a 68 year old male, with a PMH significant for signiifcant expressive aphasia and right side hemiparesis secondary to stroke in associated with CABG. There are notes inidcating pt had a L carotid stent placed but per notes of IR Dr. West at [facility], patientunderwent subclavian artery stent on left in what appears to be 2018. The left carotid was occluded. Per D/c note from NSICU in 2017 at time of stroke: HOSPITAL COURSE: The patient is a 61-year-old male with history of severe cerebrovascular and peripheral vascular disease, left CVA in the past, occluded left internal carotid artery, severe left subclavian artery stenosis, severe multiple vessel coronary artery disease. He presented to the hospital for the above primary procedure of CABG x5 on 10/30/2016. The patient's postoperative course was complicated. He suffered an acute left cerebral infarction with subsequent right hemiparesis, global aphasia, and dysphagia. He underwent stenting of the left subclavian artery. He was started on aspirin, Plavix, and statin. It is recommended that he not receive any oral anticoagulation for 4-6 weeks from 11/03/2016 secondary to significant risk of hemorrhagic conversion of the stroke. In 4-6 weeks, he can be transitioned to oral anticoagulant plus clopidogrel for secondary stroke prevention. The patient became dependent on mechanical ventilation for acute hypoxic respiratory failure and dysphagia. He was unable to wean. He had an aspiration pneumonia that was treated with antibiotics. The patient required tracheostomy and PEG tube placement, which were performed on 11/07/2016. The patient developed postop paroxysmal atrial fibrillation with RVR. Since he is unable to be anticoagulated, but he continued to go in and out of AFib with RVR, it was favored to stop amiodarone and only rate control with metoprolol. Additionally, the patient developed an ileus during his hospital stay. General Surgery was consulted; however, no surgical intervention was needed. The ileus did resolve. His tube feeds were resumed and he was tolerating tube feeds prior to discharge. He was diuresed for volume overload and was at his baseline weight at the time of discharge. It was felt to be most appropriate for the patient to be transitioned to long-term acute care. He was following commands; however, did continue to have a right hemiparesis at the time of discharge. He was to continue on IV meropenem through 11/16/2016. The patient did have a right upper arm PICC line and Cox catheter at the time of discharge. He was stable for discharge to [facility] on 11/14/2016. Patient followed up with Dr. West in late 2018. I see no other neuro follow ups. He is currently on anticoagulation and dual antiplt therapy that appears to be per cath lab manager and vascular. Reviewof records indicate pt was supposed to see me in 2020 but never showed for appt. Pt confirms prior deficits as above including R side weakness and expressive aphasia. Able to get him self dressed. Does wear brace on right leg. Note weakness worse on RLE worse due to fracture since due to mechanical falls. concerned as no testing since time of stroke. When asked about new symptoms, state that he uses a brace and a stimulator in the RUE but asking if cortisone injections would help. Hand stimulator allow for some improvement I extension of hand/fingers. Evidence of difficulties repeating during the interview. Does have episodes where he can stare off and become unresponsive. Follows with Dr. Johansen of cardiology. Again history of afib and CABGx5. Pt following with sleep dept for DARON - cannot tolerate PAP and not cadidate for Inspire -- thus, on O2 6LPM nightly -- note history of COPD as well. Carotid doppler in 07/17/2023: RIGHT SIDE Common carotid artery: Plaque visualized without evidence of hemodynamically significant stenosis. Internal carotid artery: 40-59% stenosis. Vertebral artery: Patent and antegrade flow noted. Subclavian artery: Plaque visualized without evidence of hemodynamically significant stenosis. LEFT SIDE Common carotid artery: Plaque visualized without evidence of hemodynamically significant stenosis. Internal carotid artery: Occluded. External carotid artery: Patent. Vertebral artery: Patent and antegrade flow noted. Subclavian artery: Patent. CT brain 07/26/23 at [facility] performed following fall showed no acute process per report. REVIEW OF SYSTEMS GENERAL:No weight loss, malaise or fevers. HEENT:Negative for frequent or significant headaches, No changes in hearing or vision, no nose bleeds or other nasal problems RESPIRATORY: Negative for cough, wheezing or shortness of breath. CARDIOVASCULAR: Negative for chest pain, leg swelling or palpitations. GASTROINTESTINAL: Negative for abdominal discomfort, blood in stools or black stools or change in bowel habits GENITOURINARY: No history of dysuria, frequency or incontinence MUSCULOSKELETAL: Negative for joint pain or swelling, back pain or muscle pain. NEUROLOGIC:See HPI. SKIN:Negative for lesions, rash, and itching. HEMATOLOGIC/LYMPHATIC/IMMUNOLOGIC:Negative for prolonged bleeding, bruising easily or swollen nodes. ENDOCRINE: Negative for cold or heat intolerance, polyuria, polydipsia and goiter. The remainder of the ROS was reviewed and is negative. LAB/IMAGING: Reviewed and include: WBC (k/uL) Date Value 11/25/2023 11.55 (H) RBC (m/uL) Date Value 11/25/2023 4.36 Hemoglobin (g/dL) Date Value 11/25/2023 12.7 (L) Hematocrit (%) Date Value 11/25/2023 38.7 (L) MCV (fL) Date Value 11/25/2023 88.8 MCH (pg) Date Value 11/25/2023 29.1 MCHC (g/dL) Date Value 11/25/2023 32.8 RDW-CV (%) Date Value 11/25/2023 12.7 Platelet Count (k/uL) Date Value 11/25/2023 288 MPV (fL) Date Value 11/25/2023 10.1 Glucose (mg/dL) Date Value 11/25/2023 89 BUN (mg/dL) Date Value 11/25/2023 15 Creatinine (mg/dL) Date Value 11/25/2023 1.09 Sodium (mmol/L) Date Value 11/25/2023 137 Potassium (mmol/L) Date Value 11/25/2023 4.2 Chloride (mmol/L) Date Value 11/25/2023 104 CO2 (mmol/L) Date Value 11/25/2023 25 Protein, Total (g/dL) Date Value 11/25/2023 7.2 Albumin (g/dL) Date Value 11/25/2023 4.2 Calcium, Total (mg/dL) Date Value 11/25/2023 9.2 Alkaline Phosphatase (U/L) Date Value 11/25/2023 122 (H) Bilirubin, Total (mg/dL) Date Value 11/25/2023 0.6 AST (U/L) Date Value 11/25/2023 13 (L) ALT (U/L) Date Value 11/25/2023 15 MEDICATIONS: multivitamin tablet Take 1 tablet by mouth once daily. potassium chloride (K-TAB) 10 mEq tablet Take 2 tablets by mouth three times a day. albuterol (PROVENTIL) 2.5 mg /3 mL (0.083 %) nebulizer solution INHALE 1 VIAL VIA NEBULIZER EVERY 4HOURS NEEDED FOR WHEEZING/SHORTNESS OF BREATH. USE OVER 5-15 MINUTES clotrimazole-betamethasone (LOTRISONE) cream Apply to affected area two times a day. clopidogrel (PLAVIX) 75 mg tablet Take 1 tablet by mouth once daily. amLODIPine (NORVASC) 10 mg tablet Take 0.5 tablets by mouth two times a day. Take 1/2 tablet twice daily ezetimibe (ZETIA) 10 mg tablet Take 1 tablet by mouth once daily. losartan (COZAAR) 25 mg tablet Take 1 tablet by mouth once daily. ferrous sulfate (FEROSUL) 325 mg (65 mg iron) tablet Take 1 tablet by mouth two times a day. amiodarone (PACERONE) 100 mg tablet TAKE 1 TABLET BY MOUTH ONCE DAILY *DO NOT TAKE IF HEART RATE ISLESS THAN 40* atorvastatin (LIPITOR) 40 mg tablet take 1 tablet by mouth once daily famotidine (PEPCID) 20 mg tablet take 1 tablet by mouth at bedtime as needed escitalopram oxalate (LEXAPRO) 20 mg tablet take 1 tablet by mouth once daily apixaban (ELIQUIS) 5 mg tab(s) take 1 tablet by mouth twice daily metoprolol tartrate, short acting, (LOPRESSOR) 25 mg tablet TAKE 1/2 TABLET BY MOUTH TWICE DAILY. HOLD IF HEART RATE IS LESS THAN 60 busPIRone (BUSPAR) 15 mg tablet Take 1 tablet by mouth three times a day. acetaminophen (TYLENOL EXTRA STRENGTH) 500 mg tablet Take 2 tablets by mouth three times a day as needed for pain. zinc oxide 20 % ointment Apply to affected area as needed. tiotropium-olodaterol (STIOLTO RESPIMAT) 2.5-2.5 mcg/actuation Inhale 2 Puffs as instructed once daily. traZODone (DESYREL) 100 mg tablet Take 1 tablet by mouth daily at bedtime. albuterol HFA (PROVENTIL HFA, VENTOLIN HFA) 90 mcg/actuation inhaler Inhale 2 Puffs as instructed every 4 hours as needed. baclofen 10 mg tablet TAKE 1/2 TABLET BY MOUTH THREE TIMES A DAY aspirin, enteric coated (ASPIRIN, ENTERIC COATED) 81 mg EC tablet Take 81 mg by mouth once daily. fluticasone (FLONASE) 50 mcg/actuation nasal spray Use 1 [place] in each nostril twice daily. Rinse mouth after use. (Patient taking differently: Use 1 [place] in each nostril two times a day as needed for cold/allergy symptoms. Rinse mouth after use.) Blood Pressure Monitor kit 1 application twice daily. Measure patient for correct size. Patient needs cuff for left arm readings. COMPOUNDED PRESCRIPTION Articulating AFO foot brace for right leg. Send to [employer]. Dx: I63.9 COMPOUNDED PRESCRIPTION EMBER WALKER DX I63.9 weight 162 # BEVESPI AEROSPHERE 9-4.8 mcg Inhale 2 Puffs as instructed two times a day. (Patient not taking: Reported on 02/24/2024) LORazepam (ATIVAN) 0.5 mg Take 1-2 tablets by mouth three times a day as needed for up to 90 days. sildenafil (VIAGRA) 100 mg tablet Take 1 tablet by mouth once daily as needed. Take 30-60 minutes before sexual activity. (Patient not taking: Reported on 03/09/2024) HISTORIES PAST MEDICAL HISTORY No date: Acute cerebral infarction ([facility]) Comment: left No date: LEANN (acute kidney injury) ([facility]) No date: Anemia No date: Aneurysm ([facility]) No date: Anxiety state 11/2016: Atrial fibrillation ([facility]) No date: Balanitis No date: CAD (coronary artery disease) No date: Carotid stenosis No date: COPD (chronic obstructive pulmonary disease) ([facility]) No date: Dysphasia No date: Emphysema lung ([facility]) 03/2023: History of blood transfusion No date: Hypertension 03/2023: Hypoxia No date: DARON (obstructive sleep apnea) No date: PVD (peripheral vascular disease) ([facility]) No date: Respiratory failure ([facility]) Comment: hypoxic-ventilator dependent No date: Stroke (cerebrum) ([facility]) No date: Tobacco abuse FAMILY HISTORY Problem Relation Age of Onset Heart Mother CO in her 70s, pacemaker Diabetes Mother Stroke Father other (AAA) Father other (CAD) Brother Hypertension Brother SOCIAL HISTORY Social History Tobacco Use Smoking status: Former Packs/day: 2.00 Years: 45.00 Additional pack years: 0.00 Total pack years: 90.00 Types: Cigarettes Quit date: 07/08/2016 Years since quittin.6 Smokeless tobacco: Never Tobacco comments: 07/08/2016 Vaping Use Vaping Use: Never used Substance Use Topics Alcohol use: No Drug use: Never PHYSICAL EXAMINATION BP 142/60 (BP Site: Left Arm, BP Position: Sitting) Pulse (!) 54 Resp 18 SpO2 96% GENERAL EXAM: General appearance: NAD, pleasant. HEENT: NC/AT, nasal congestion absent, no oral lesions, membranes moist. NECK: No masses, supple. Lungs: CTA bilaterally. CV: RRR nl S1, S2. Extr: No cyanosis, clubbing or edema. Skin: Cool to touch. NEUROLOGICAL EXAM: General: Awake, alert, oriented x3 (person,place,time), however, while follows simple commands and appears to understand, there is more than expressive aphasia on exam with patient having difficulties following some commands. Raises question of whether further events since last stroke evaluation with notes only stating expressive aphasia. CN: PERRL, EOMI, No vision in left eye, face sensation intact but noted central right facial weakness, hearing is intact to finger rub cristiano, palate and tongue movements are intact and symmetric. SCM and trapezius strength normal. Motor: Normal tone, bulk and strength (5/5) on L side. RUE with 4/5 prox strength but distal to wrist 1/5 at best with significantly increased tone. RLE with increased tone throughout but 4+/5 strength except 0/5 R dorsiflexion. Coordination: FNF, AB, HTS all impaired on R. Sensation: Light touch and pin diminished in RUE. No definite evidence of neglect. Gait: Abnormal due to RLE weakness. Assessment and Plan: ASSESSMENT/PLAN: 1. History of stroke - ICD9: V12.54, ICD10: Z86.73 (primary diagnosis) 2. Left carotid artery occlusion - ICD9: 433.10, ICD10: I65.22 3. Stenosis of left subclavian artery (HCC) - ICD9: 447.1, ICD10: I77.1 4. History of obstructive sleep apnea - ICD9: 327.23, ICD10: Z86.69 5. History of atrial fibrillation - ICD9: V12.59, ICD10: Z86.79 6. History of coronary artery bypass, five - ICD9: V15.1, ICD10: Z95.1 7. 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 Spasticity - ICD9: 781.0, ICD10: R25.2 9. Altered mental status, unspecified altered mental status type - ICD9: 780.97, ICD10: R41.82 Patient with known history of large L cerebral infract impacting most of the LMCA distribution on review of MRI brain images from 2018. Patient with known and prior documented deficits of R side weakness and spasticity as well as aphasia. That said, prior aphasia was noted to be expressive in notesI reviewed and at this time patient with both expressive and receptive features raising question ofwhether additional strokes may have occurred since that in 2018. Discussed with patient and his . I feel appropriate to evaluate with MRI brain as well as MRA head and neck, with the latter beingused to evaluate for progression of carotid disease and intracranial vessel disease as well. As for current stroke treatment, patient already on anticoagulation and DAPT due cardiac disease and PVD. No changes will be made. Also on statin with LDL confirmed to be <70 in 2023. No history of DM. Goal glucose and BP <140/90. Encouraged follow up with sleep for alternative therapies for DARON. Will refer to PMR for evaluation of whether pt might benefit from botox therapy for spasticity in RUE.Finally with pt having reported staring off spells and with history of large cortical stroke, will get EEG to evaluate for possible seizure activity. Pt will follow up after workup complete. Dania Aj MD I spent a total of 60+ minutes on the date of the service which included preparing to see the patient, [id number] patient care, completing clinical documentation, obtaining and/or reviewing separately obtained history, performing a medically appropriate examination, counseling and educating the pa tient/family/caregiver, ordering medications, tests, or procedures, independently interpreting results (not separately reported), and communicating results to the patient/family/caregiver. documented in this encounterPro[facility]07-[facility]24 Telephone encounter Note * Telephone Encounter - Khris Gutierrez RN - 03/04/2024 11:29 AM EDT Pts called in reporting Pt needed multivitamin called in. Let her know that provider had called it in today. [facility]07-31-2024 Miscellaneous Notes* Telephone Encounter - Khris Gutierrez RN - 03/04/2024 11:29 AM EDT Pts called in reporting Pt needed multivitamin called in. Let her know that provider had called it in today. * Telephone Encounter - Jessie Harmon APRN.CNP - 03/04/2024 11:03 AM EDT The following approved medication requests have been transmitted electronically. Requested Prescriptions Pending Prescriptions Disp Refills multivitamin tablet 90 tablet 3 Sig: Take 1 tablet by mouth once daily. potassium chloride (K-TAB) 10 mEq tablet 540 tablet 3 Sig: Take 2 tablets by mouth three times a day. Jessie Harmon APRN.CNP * Telephone Encounter - Camila Thomas - 03/04/2024 9:30 AM EDT Prescription Refill Information The patient has been identified by name and date of : Yes Caregiver verified no other encounters exist for this prescription request: Yes Caregiver confirmed with patient/requestor that no other refills are due, in the near future, with this provider at this time: Yes The last office visit in the department: 12/31/23 Does the patient have a future office visit with this provider/department: Yes Requested Prescriptions Pending Prescriptions Disp Refills multivitamin tablet 90 tablet 3 Sig: Take 1 tablet by mouth once daily. potassium chloride (K-TAB) 10 mEq tablet 540 tablet 3 Sig: Take 2 tablets by mouth three times a day. Camila Fry March 04, 2024 9:31 AM documented in this encounterProtest[facility]07-31-2024 Telephone encounter Note * Telephone Encounter - Jessie Harmon APRN.CNP - 03/04/2024 11:03 AM EDT The following approved medication requests have been transmitted electronically. Requested Prescriptions Pending Prescriptions Disp Refills multivitamin tablet 90 tablet 3 Sig: Take 1 tablet by mouth once daily. potassium chloride (K-TAB) 10 mEq tablet 540 tablet 3 Sig: Take 2 tablets by mouth three times a day. Jessie Harmon APRN.CNP [facility] Telephone encounter Note* Telephone Encounter - Camila Thomas - 03/04/2024 9:30 AM EDT Prescription Refill Information The patient has been identified by name and date of : Yes Caregiver verified no other encounters exist for this prescription request: Yes Caregiver confirmed with patient/requestor that no other refills are due, in the near future, with this provider at this time: Yes The last office visit in the department: 12/31/23 Does the patient have a future office visit with this provider/department: Yes Requested Prescriptions Pending Prescriptions Disp Refills multivitamin tablet 90 tablet 3 Sig: Take 1 tablet by mouth once daily. potassium chloride (K-TAB) 10 mEq tablet 540 tablet 3 Sig: Take 2 tablets by mouth three times a day. Camila Fry March 04, 2024 9:31 AM [facility]07-[facility] History of Present illness Narrative* Robin Johansen MD - 03/02/2024 3:00 PM EDT Images from the original note were not included. HEART AND VASCULAR [facility] Cardiology ([facility]) [address] [id number] OUTPATIENT VISIT DATE 03/02/2024 PRIMARY CARE PHYSICIAN: Jaci Arroyo [address] [place] [address] HISTORY OF PRESENT ILLNESS: Mr. Zee is a 68 year old gentleman with a history of coronary artery disease and prior coronary artery bypass grafting in October 2016 complicated by left hemispheric CVA. He has resulting weakness that is right-sided and dysphasia. He was accompanied to the office visit by his . Unfortunately, he suffered a fall late last year and ended up with surgery at [facility]. He has been making a good recovery from an orthopedic standpoint. He has not had symptoms of palpitations, lightheadedness, dizziness, or syncope. There is no symptoms concerning for recurrent atrial fibrillation. There is no symptoms concerning for congestive heart failure including PND, orthopnea, or lower extremity edema. 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 Kimbrough on 10/30/2016. SECONDARY PROCEDURES PERFORMED: 1. Cerebral angiography and stenting of the left subclavian artery performed by Dr. West on 11/02/2016. 2. Tracheostomy performed by Dr. Delgado on 11/07/2016. 3. Fluoroscopically guided placement of gastrostomy tube into the stomach performed on 11/07/2016. PAST MEDICAL HISTORY Diagnosis Date Acute cerebral infarction (HCC) left LEANN (acute kidney injury) (HCC) Anemia Aneurysm (HCC) Anxiety state Atrial fibrillation (HCC) 11/2016 Balanitis CAD (coronary artery disease) Carotid stenosis COPD (chronic obstructive pulmonary disease) (HCC) Dysphasia Emphysema lung (HCC) History of blood transfusion 03/2023 Hypertension Hypoxia 03/2023 DARON (obstructive sleep apnea) PVD (peripheral vascular disease) ([facility]) Respiratory failure (HCC) hypoxic-ventilator dependent Stroke (cerebrum) ([facility]) Tobacco abuse PAST SURGICAL HISTORY Procedure Laterality Date ANKLE SURGERY HX Right 08/07/2023 Dr. Kim. Right ankle ORIF due to fracture CABG CONSULT 10/30/2016 multi vessel COLONOSCOPY SCREENING 04/10/2023 EGD W/O BRSH SPEC VARICIES INJ 04/11/2023 EGD W/O BRSH SPEC VARICIES INJ 04/10/2023 HEART CATHETERIZATION 09/17/2016 PAST SURGICAL HISTORY OF 2017 Aneurysm and stent surgery related to stroke TRACHEOSTOMY HX SOCIAL HISTORY Social History Tobacco Use Smoking status: Former Packs/day: 2.00 Years: 45.00 Additional pack years: 0.00 Total pack years: 90.00 Types: Cigarettes Quit date: 07/08/2016 Years since quittin.6 Smokeless tobacco: Never Tobacco comments: 07/08/2016 Vaping Use Vaping Use: Never used Substance Use Topics Alcohol use: No Drug use: Never FAMILY HISTORY Problem Relation Age of Onset Heart Mother [place] in her 70s, pacemaker Diabetes Mother Stroke Father other (AAA) Father other (CAD) Brother Hypertension Brother ALLERGIES: ALLERGIES Allergen Reactions Lisinopril Swelling, Angioedema Lip swelling after starting lisinopril. Doxycycline GI Upset, Other: See Comments GI upset (stomach ache/cramping/diarrhea) and splotchy face Sulfa (Sulfonamide * Hives Zpak [Azithromycin] Hives MEDICATIONS: BEVESPI AEROSPHERE 9-4.8 mcg Inhale 2 Puffs as instructed two times a day. (Patient not taking: Reported on 02/24/2024) albuterol (PROVENTIL) 2.5 mg /3 mL (0.083 %) nebulizer solution INHALE 1 VIAL VIA NEBULIZER EVERY 4HOURS NEEDED FOR WHEEZING/SHORTNESS OF BREATH. USE OVER 5-15 MINUTES clotrimazole-betamethasone (LOTRISONE) cream Apply to affected area two times a day. clopidogrel (PLAVIX) 75 mg tablet Take 1 tablet by mouth once daily. amLODIPine (NORVASC) 10 mg tablet Take 0.5 tablets by mouth two times a day. Take 1/2 tablet twice daily ezetimibe (ZETIA) 10 mg tablet Take 1 tablet by mouth once daily. losartan (COZAAR) 25 mg tablet Take 1 tablet by mouth once daily. ferrous sulfate (FEROSUL) 325 mg (65 mg iron) tablet Take 1 tablet by mouth two times a day. amiodarone (PACERONE) 100 mg tablet TAKE 1 TABLET BY MOUTH ONCE DAILY *DO NOT TAKE IF HEART RATE ISLESS THAN 40* atorvastatin (LIPITOR) 40 mg tablet take 1 tablet by mouth once daily famotidine (PEPCID) 20 mg tablet take 1 tablet by mouth at bedtime as needed escitalopram oxalate (LEXAPRO) 20 mg tablet take 1 tablet by mouth once daily apixaban (ELIQUIS) 5 mg tab(s) take 1 tablet by mouth twice daily LORazepam (ATIVAN) 0.5 mg Take 1-2 tablets by mouth three times a day as needed for up to 90 days. metoprolol tartrate, short acting, (LOPRESSOR) 25 mg tablet TAKE 1/2 TABLET BY MOUTH TWICE DAILY. HOLD IF HEART RATE IS LESS THAN 60 busPIRone (BUSPAR) 15 mg tablet Take 1 tablet by mouth three times a day. acetaminophen (TYLENOL EXTRA STRENGTH) 500 mg tablet Take 2 tablets by mouth three times a day as needed for pain. zinc oxide 20 % ointment Apply to affected area as needed. sildenafil (VIAGRA) 100 mg tablet Take 1 tablet by mouth once daily as needed. Take 30-60 minutes before sexual activity. tiotropium-olodaterol (STIOLTO RESPIMAT) 2.5-2.5 mcg/actuation Inhale 2 Puffs as instructed once daily. traZODone (DESYREL) 100 mg tablet Take 1 tablet by mouth daily at bedtime. albuterol HFA (PROVENTIL HFA, VENTOLIN HFA) 90 mcg/actuation inhaler Inhale 2 Puffs as instructed every 4 hours as needed. baclofen 10 mg tablet TAKE 1/2 TABLET BY MOUTH THREE TIMES A DAY aspirin, enteric coated (ASPIRIN, ENTERIC COATED) 81 mg EC tablet Take 81 mg by mouth once daily. multivitamin tablet Take 1 tablet by mouth once daily. fluticasone (FLONASE) 50 mcg/actuation nasal spray Use 1 [place] in each nostril twice daily. Rinse mouth after use. (Patient taking differently: Use 1 [place] in each nostril two times a day as needed for cold/allergy symptoms. Rinse mouth after use.) potassium chloride (K-TAB) 10 mEq tablet Take 2 tablets by mouth three times daily. Blood Pressure Monitor kit 1 application twice daily. Measure patient for correct size. Patient needs cuff for left arm readings. COMPOUNDED PRESCRIPTION Articulating AFO foot brace for right leg. Send to [employer]. Dx: I63.9 COMPOUNDED PRESCRIPTION EMBER WALKER DX I63.9 weight 162 # REVIEW OF SYSTEMS: Difficult to obtain PHYSICAL EXAMINATION: BP 131/69 Pulse (!) 49 SpO2 95% General: Pleasant gentleman sitting appears comfortable and in no apparent distress. He is able to respond appropriately to questions with yes and no answers. HEENT: Carotid upstrokes are brisk on the right. No carotid upstroke noted on the left. No JVD. Pulmonary: Diminished breath sounds noted throughout. No rales, wheezes, rhonchi Cardiovascular: Normal S1, S2 with regular rate and rhythm. No murmurs, rubs, or gallops Extremities: Warm, well-perfused, immobility noted in his right upper and lower extremity. No lowerextremity edema. CARDIOVASCULAR MEDICINE TESTING: ECG in the office 04/03/2021: Sinus bradycardia with first-degree AV block. Left axis deviation. Inferior infarct with Q waves in II, III and aVF. Nonspecific diffuse ST-T wave changes Echocardiogram 12/20/2022: - Technically difficult exam due to suboptimal positioning and body habitus. - Exam indication: CAD - The left ventricle is small. Left ventricular systolic function is normal. EF = 56 5% (2D 4-ch.) Left ventricular diastolic function was not evaluated due to AF. - The right ventricle is normal in size. Right ventricular systolic function is normal. - There are no significant valvular abnormalities. - The patient has not had a prior CC echocardiographic exam for comparison. Echocardiogram [facility] 12/16/2020: Left ventricular systolic function is normal Estimated ejection fraction is 60%. Left atrium is mildly enlarged Mild-moderate (1-2+) mitral valve insufficiency Mild tricuspid valve insufficiency Trivial pulmonic valve insufficiency Right ventricular systolic pressure estimated to be 30 mmHg No evidence of diastolic dysfunction Carotid Ultrasound 07/17/2023: IMPRESSION RIGHT SIDE Common carotid artery: Plaque visualized without evidence of hemodynamically significant stenosis. Internal carotid artery: 40-59% stenosis. Vertebral artery: Patent and antegrade flow noted. Subclavian artery: Plaque visualized without evidence of hemodynamically significant stenosis. LEFT SIDE Common carotid artery: Plaque visualized without evidence of hemodynamically significant stenosis. Internal carotid artery: Occluded. External carotid artery: Patent. Vertebral artery: Patent and antegrade flow noted. Subclavian artery: Patent. Cardiac Surgery 10/30/2016: PROCEDURES PERFORMED: Coronary artery bypass graft x5 with left internal mammary artery to left anterior descending artery; and reversed saphenous vein graft to first diagonal branch, obtuse marginal branch, right acute marginal branch and posterior descending artery; with endoscopic vein harvesting. Note the left internal mammary graft is a free graft and its proximal was taken off of the vein graft to the obtuse marginal branch due to a left subclavian stenosis. Neuro IR, Maggy West 10/30/2016: IMPRESSION: 1. The patient is status post successful stenting of the left subclavian artery for critical preocclusive stenosis as discussed above with perfect angiographic result. There is no evidence of residual you/you flow in the cervical left vertebral artery, was improved posterior circulation. 2. 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 3. Additional blood supply to the vertebral artery is visualized through the anastomosis between the left occipital artery and the pericranial left vertebral artery. IMPRESSION: Mr. Zee is a 67 year old gentleman with a history of multivessel coronary artery disease and coronary bypass grafting in October 2016 (free WAKEFIELD-LAD Y-graft from SVG-OM, SVG-D1, -OM, -PDA, -AM of RCA), complicated by left MCA stroke. He is also treated for paroxysmal atrial fibrillation, hypertension and dyslipidemia. He has a prior significant smoking history and quit at the time of his coronary bypass grafting. He presents to the office for routine follow-up PLAN AND RECOMMENDATIONS: 1. Coronary artery disease involving [place] coronary artery of [place] heart without angina pectoris- ICD9: 414.01, ICD10: I25.10 (primary diagnosis) Patient doing well without apparent symptoms concerning for angina. Continue current medical therapy and risk factor modification 2. Paroxysmal atrial fibrillation (HCC) - ICD9: 427.31, ICD10: I48.0 No symptoms concerning for recurrent atrial fibrillation. Currently maintained on low-dose amiodarone and Eliquis for stroke risk reduction. Recheck TSH given long-term treatment with amiodarone. - THYROID STIMULATING HORMONE 3. Essential hypertension - ICD9: 401.9, ICD10: I10 Adequate control on current regimen. 4. Mixed hyperlipidemia - ICD9: 272.2, ICD10: E78.2 Maintained on atorvastatin 40 mg daily. Fasting blood work from November 2023 was reviewed. LDL cholesterol 58 mg/dL 5. Bradycardia - ICD9: 427.89, ICD10: R00.1 Remains asymptomatic 6. Occlusion of left carotid artery - ICD9: 433.10, ICD10: I65.22 Scheduled for repeat carotid ultrasound in September 2024 7. Pre-operative cardiovascular examination - ICD9: V72.81, ICD10: Z01.810 Patient has upcoming colonoscopy. Patient is at low cardiac risk for planned procedure. He should be off Eliquis for 48 hours prior to his procedure. He can resume Eliquis postprocedure as instructedby his proceduralist Robin Johansen MD [facility]Pro[facility] Instructions* Patient Instructions* Robin Johansen MD - 03/02/2024 2:50 PM EDT You will hold the Eliquis for 48 hours prior to your colonoscopy documented in this encounterProtestant Hospital07-29-2024 Telephone encounter Note * Telephone Encounter - Lacy Rosas MA - 03/02/2024 11:06 AM EDT Called and spoke with Eli, patient's . given providers response. States he has an appointment next Saturday with and will check at his Neurology appointment. [facility] Miscellaneous Notes* Telephone Encounter - Lacy Rosas MA - 03/02/2024 11:06 AM EDT Called and spoke with Eli, patient's . given providers response. States he has an appointment next Saturday with and will check at his Neurology appointment. * Telephone Encounter - Lacy oRsas MA - 03/02/2024 11:04 AM EDT Images from the original note were not included. Alisa Saul PA-C [facility] Orthopaedic Pool2 hours ago (8:04 AM) Sorry, I am not aware of any orthopedic providers that inject Botox for hand contractures. That maybe something that is offered by neurology, since it is a neurotoxin. * Telephone Encounter - Bee Hernandez RN - 02/28/2024 11:18 AM EDT Mark Eli- I forwarded this to care team to inquire if we provide this service and if not recommendations for another provider. I will call you back when I get the information. Bee RN * Telephone Encounter - Deanne Neville LPN - 02/28/2024 8:53 AM EDT Patient's spouse, Eli, calling inquiring about possible Botox injection in patient's right hand. He currently has a hand stimulator to assist in opening and closing follow a CVA in October 2016. He is doing physical therapy at [facility] and PT had suggested he may be a good candidate. Asking if our office knows of a provider that completes this within [facility]? Deanne Neville LPN documented in this encounterCleveland [id number] Telephone encounter Note * Telephone Encounter - Lacy Rosas MA - 03/02/2024 11:04 AM EDT Images from the original note were not included. Alisa Saul PA-C [facility] Orthopaedic Pool2 hours ago (8:04 AM) Sorry, I am not aware of any orthopedic providers that inject Botox for hand contractures. That maybe something that is offered by neurology, since it is a neurotoxin. [facility]07-[facility] Telephone encounter Note* Telephone Encounter - Bee Hernandez, DIANE - 02/28/2024 11:18 AM EDT Mark Benitez- I forwarded this to care team to inquire if we provide this service and if not recommendations for another provider. I will call you back when I get the information. Bee RN [facility]07-26-[facility]24 Telephone encounter Note* Telephone Encounter - Deanne Neville LPN - 02/28/2024 8:53 AM EDT Patient's spouse, Eli, calling inquiring about possible Botox injection in patient's right hand. He currently has a hand stimulator to assist in opening and closing follow a CVA in October 2016. He is doing physical therapy at [facility] and PT had suggested he may be a good candidate. Asking if our office knows of a provider that completes this within [facility]? Deanne Neville LPN [facility]07-23-2024 Telephone encounter Note* Telephone Encounter - Sharon Hinojosa - 02/25/2024 8:19 AM EDT Patient scheduled on 06/24/[address] [place] [address]. Cardoso for scopes. Patient requesting new provider when she is able to start for a sooner date. Patient does not lai Joelle or Earline Hinojosa Ancillary Services Manager Therapy [facility]07-22-[facility] Nurse Note* Mayela Mcgrath LPN - 02/24/2024 4:35 PM EDT Patient educated, patient verbalized understanding. No further questions at this time. Mayela Mcgrath LPN February 24, 2024 4:35 PM [facility]07-22-[facility] Nurse Note* Mayela Mcgrath LPN - 02/24/2024 4:35 PM EDT Patient educated, patient verbalized understanding. No further questions at this time. Mayela Mcgrath LPN February 24, 2024 4:35 PM * Charla Shaikh RN - 02/24/2024 4:31 PM EDT REVIEW OF SYSTEMS: General: The patient notes fatigue, denies weight loss, denies weight gain, denies feeling hot, anddenies feelings of cold. Eyes: The patient denies glaucoma, denies eye injury/surgery, does not wear glasses or contacts. Ear/Nose/Throat: The patient denies allergies, denies hayfever, denies ear infections, and denies bloody noses. Cardiovascular: The patient denies chest pain, denies heart disease, denies high blood pressure,denies cardiac stent, denies prior heart attack, denies irregular heart beat, notes high cholesterol, denies poor circulation, denies heart failure, other cardiac issues, notes claudication, denies cold feet, denies peripheral arterial stent. Respiratory: The patient denies tuberculosis, denies pneumonia, denies frequent cough, denies pulmonary embolism, notes shortness of breath, and denies coughing up blood. Gastrointestinal: The patient denies difficulty swallowing, denies acid reflux, denies ulcers, denies vomiting, denies jaundice/hepatitis, denies gallbladder problems, denies black or tarry stools, denies hemorrhoids, denies bleeding from rectum, denies diverticulitis, denies constipation, denies diarrhea, denies loss of stool control, and denies hernias. Kidney/Bladder: The patient denies kidney stones, denies urine infections, and denies bloody urine. Skin: The patient denies a history of skin cancer, denies bleeding/changing moles, and denies a history of skin rash. Neurologic: The patient denies a history of epilepsy/convulsions, denies headaches, denies head/spinal injuries, and notes stroke/TIA. Psychiatric: The patient denies psychiatric medications, notes depression, and denies voices, denies substance abuse. Endocrine: The patient denies thyroid disorders, denies diabetes, and denies hormonal problems. Hematologic: The patient notes a history of bruising, notes bleeding, and denies anemia, denies blood clots. Infections: The patient denies a history of measles and mumps, denies rheumatic fever, and denies sexually transmitted diseases. Musculoskeletal: The patient denies back pain/injury, denies back problems, denies sciatica, notes knee/foot trouble, denies arthritis, or denies gout. When was patient's last Mammogram screening? N/A Last Colonoscopy: 04/2023 Charla Shaikh RN documented in this encounterProtestant Hospital07-22-2024 Nurse Note* Charla Shaikh RN - 02/24/2024 4:31 PM EDT REVIEW OF SYSTEMS: General: The patient notes fatigue, denies weight loss, denies weight gain, denies feeling hot, anddenies feelings of cold. Eyes: The patient denies glaucoma, denies eye injury/surgery, does not wear glasses or contacts. Ear/Nose/Throat: The patient denies allergies, denies hayfever, denies ear infections, and denies bloody noses. Cardiovascular: The patient denies chest pain, denies heart disease, denies high blood pressure,denies cardiac stent, denies prior heart attack, denies irregular heart beat, notes high cholesterol, denies poor circulation, denies heart failure, other cardiac issues, notes claudication, denies cold feet, denies peripheral arterial stent. Respiratory: The patient denies tuberculosis, denies pneumonia, denies frequent cough, denies pulmonary embolism, notes shortness of breath, and denies coughing up blood. Gastrointestinal: The patient denies difficulty swallowing, denies acid reflux, denies ulcers, denies vomiting, denies jaundice/hepatitis, denies gallbladder problems, denies black or tarry stools, denies hemorrhoids, denies bleeding from rectum, denies diverticulitis, denies constipation, denies diarrhea, denies loss of stool control, and denies hernias. Kidney/Bladder: The patient denies kidney stones, denies urine infections, and denies bloody urine. Skin: The patient denies a history of skin cancer, denies bleeding/changing moles, and denies a history of skin rash. Neurologic: The patient denies a history of epilepsy/convulsions, denies headaches, denies head/spinal injuries, and notes stroke/TIA. Psychiatric: The patient denies psychiatric medications, notes depression, and denies voices, denies substance abuse. Endocrine: The patient denies thyroid disorders, denies diabetes, and denies hormonal problems. Hematologic: The patient notes a history of bruising, notes bleeding, and denies anemia, denies blood clots. Infections: The patient denies a history of measles and mumps, denies rheumatic fever, and denies sexually transmitted diseases. Musculoskeletal: The patient denies back pain/injury, denies back problems, denies sciatica, notes knee/foot trouble, denies arthritis, or denies gout. When was patient's last Mammogram screening? N/A Last Colonoscopy: 04/2023 Charla Shaikh RN [facility]07-22-[facility] History of Present illness Narrative* Lacy Lai MD - 02/24/2024 3:55 PM EDT HISTORY AND PHYSICAL Afshin Zee 1955 REFERRING PHYSICIAN: Jorge Cardoso MD CHIEF COMPLAINT: Colonoscopy Consult (Last colonoscopy 04/2023) HPI: The patient is a 68 year old male referred for endoscopy. Afshin had removal of a tubulovillous polyp which was 3.7 cm on 07/18/2023 He will require follow up surveillance colonoscopy. He denies blood in his stools. He denies chronic abdominal pain. He had procedure done by Dr. Cardoso in the past. Patient with medical illnesses of chronic atrial fibrillation, COPD, coronary artery disease, hypertension, DARON, anesthesia assessment of ASA III PAST MEDICAL HISTORY Diagnosis Date Acute cerebral infarction (HCC) left LEANN (acute kidney injury) (HCC) Anemia Aneurysm (HCC) Anxiety state Atrial fibrillation (HCC) 11/2016 Balanitis CAD (coronary artery disease) Carotid stenosis COPD (chronic obstructive pulmonary disease) (HCC) Dysphasia Emphysema lung (HCC) History of blood transfusion 03/2023 Hypertension Hypoxia 03/2023 DARON (obstructive sleep apnea) PVD (peripheral vascular disease) (HCC) Respiratory failure (HCC) hypoxic-ventilator dependent Stroke (cerebrum) (HCC) Tobacco abuse PAST SURGICAL HISTORY Procedure Laterality Date ANKLE SURGERY HX Right 08/07/2023 Dr. Kim. Right ankle ORIF due to fracture CABG CONSULT 10/30/2016 multi vessel COLONOSCOPY SCREENING 04/10/2023 EGD W/O RUST SPEC VARICIES INJ 04/11/2023 EGD W/O RUST SPEC VARICIES INJ 04/10/2023 HEART CATHETERIZATION 09/17/2016 PAST SURGICAL HISTORY OF 2017 Aneurysm and stent surgery related to stroke TRACHEOSTOMY HX Current Outpatient Medications Medication Sig albuterol (PROVENTIL) 2.5 mg /3 mL (0.083 %) nebulizer solution INHALE 1 VIAL VIA NEBULIZER EVERY 4HOURS NEEDED FOR WHEEZING/SHORTNESS OF BREATH. USE OVER 5-15 MINUTES clotrimazole-betamethasone (LOTRISONE) cream Apply to affected area two times a day. clopidogrel (PLAVIX) 75 mg tablet Take 1 tablet by mouth once daily. amLODIPine (NORVASC) 10 mg tablet Take 0.5 tablets by mouth two times a day. Take 1/2 tablet twice daily ezetimibe (ZETIA) 10 mg tablet Take 1 tablet by mouth once daily. losartan (COZAAR) 25 mg tablet Take 1 tablet by mouth once daily. ferrous sulfate (FEROSUL) 325 mg (65 mg iron) tablet Take 1 tablet by mouth two times a day. amiodarone (PACERONE) 100 mg tablet TAKE 1 TABLET BY MOUTH ONCE DAILY *DO NOT TAKE IF HEART RATE ISLESS THAN 40* atorvastatin (LIPITOR) 40 mg tablet take 1 tablet by mouth once daily famotidine (PEPCID) 20 mg tablet take 1 tablet by mouth at bedtime as needed escitalopram oxalate (LEXAPRO) 20 mg tablet take 1 tablet by mouth once daily apixaban (ELIQUIS) 5 mg tab(s) take 1 tablet by mouth twice daily metoprolol tartrate, short acting, (LOPRESSOR) 25 mg tablet TAKE 1/2 TABLET BY MOUTH TWICE DAILY. HOLD IF HEART RATE IS LESS THAN 60 busPIRone (BUSPAR) 15 mg tablet Take 1 tablet by mouth three times a day. acetaminophen (TYLENOL EXTRA STRENGTH) 500 mg tablet Take 2 tablets by mouth three times a day as needed for pain. zinc oxide 20 % ointment Apply to affected area as needed. sildenafil (VIAGRA) 100 mg tablet Take 1 tablet by mouth once daily as needed. Take 30-60 minutes before sexual activity. tiotropium-olodaterol (STIOLTO RESPIMAT) 2.5-2.5 mcg/actuation Inhale 2 Puffs as instructed once daily. traZODone (DESYREL) 100 mg tablet Take 1 tablet by mouth daily at bedtime. albuterol HFA (PROVENTIL HFA, VENTOLIN HFA) 90 mcg/actuation inhaler Inhale 2 Puffs as instructed every 4 hours as needed. baclofen 10 mg tablet TAKE 1/2 TABLET BY MOUTH THREE TIMES A DAY aspirin, enteric coated (ASPIRIN, ENTERIC COATED) 81 mg EC tablet Take 81 mg by mouth once daily. multivitamin tablet Take 1 tablet by mouth once daily. fluticasone (FLONASE) 50 mcg/actuation nasal spray Use 1 [place] in each nostril twice daily. Rinse mouth after use. (Patient taking differently: Use 1 Almont in each nostril two times a day as needed for cold/allergy symptoms. Rinse mouth after use.) potassium chloride (K-TAB) 10 mEq tablet Take 2 tablets by mouth three times daily. Blood Pressure Monitor kit 1 application twice daily. Measure patient for correct size. Patient needs cuff for left arm readings. COMPOUNDED PRESCRIPTION Articulating AFO foot brace for right leg. Send to [facility]. Dx: I63.9 COMPOUNDED PRESCRIPTION EMBER GUO DX I63.9 weight 162 # ION AEROSPHERE 9-4.8 mcg Inhale 2 Puffs as instructed two times a day. (Patient not taking: Reported on 02/24/2024) LORazepam (ATIVAN) 0.5 mg Take 1-2 tablets by mouth three times a day as needed for up to 90 days. No current facility-administered medications for this visit. ALLERGIES: Lisinopril, Doxycycline, Sulfa (Sulfonamide Antibiotics), and Zpak [Azithromycin] PERSONAL HISTORY: Social History Tobacco Use Smoking status: Former Packs/day: 2.00 Years: 45.00 Additional pack years: 0.00 Total pack years: 90.00 Types: Cigarettes Quit date: 07/08/2016 Years since quittin.6 Smokeless tobacco: Never Tobacco comments: 07/08/2016 Vaping Use Vaping Use: Never used Substance Use Topics Alcohol use: No Drug use: Never FAMILY HISTORY Problem Relation Age of Onset Heart Mother CO in her 70s, pacemaker Diabetes Mother Stroke Father other (AAA) Father other (CAD) Brother Hypertension Brother The review of systems data was entered by the nurse and reviewed by fl Nursing Notes: Charla Shaikh RN 02/24/2024 4:33 PM Signed REVIEW OF SYSTEMS: General: The patient notes fatigue, denies weight loss, denies weight gain, denies feeling hot, anddenies feelings of cold. Eyes: The patient denies glaucoma, denies eye injury/surgery, does not wear glasses or contacts. Ear/Nose/Throat: The patient denies allergies, denies hayfever, denies ear infections, and denies bloody noses. Cardiovascular: The patient denies chest pain, denies heart disease, denies high blood pressure,denies cardiac stent, denies prior heart attack, denies irregular heart beat, notes high cholesterol, denies poor circulation, denies heart failure, other cardiac issues, notes claudication, denies cold feet, denies peripheral arterial stent. Respiratory: The patient denies tuberculosis, denies pneumonia, denies frequent cough, denies pulmonary embolism, notes shortness of breath, and denies coughing up blood. Gastrointestinal: The patient denies difficulty swallowing, denies acid reflux, denies ulcers, denies vomiting, denies jaundice/hepatitis, denies gallbladder problems, denies black or tarry stools, denies hemorrhoids, denies bleeding from rectum, denies diverticulitis, denies constipation, denies diarrhea, denies loss of stool control, and denies hernias. Kidney/Bladder: The patient denies kidney stones, denies urine infections, and denies bloody urine. Skin: The patient denies a history of skin cancer, denies bleeding/changing moles, and denies a history of skin rash. Neurologic: The patient denies a history of epilepsy/convulsions, denies headaches, denies head/spinal injuries, and notes stroke/TIA. Psychiatric: The patient denies psychiatric medications, notes depression, and denies voices, denies substance abuse. Endocrine: The patient denies thyroid disorders, denies diabetes, and denies hormonal problems. Hematologic: The patient notes a history of bruising, notes bleeding, and denies anemia, denies blood clots. Infections: The patient denies a history of measles and mumps, denies rheumatic fever, and denies sexually transmitted diseases. Musculoskeletal: The patient denies back pain/injury, denies back problems, denies sciatica, notes knee/foot trouble, denies arthritis, or denies gout. When was patient's last Mammogram screening? N/A Last Colonoscopy: 04/2023 DIANE Liz Samaria, LPN 02/24/2024 4:36 PM Signed Patient educated, patient verbalized understanding. No further questions at this time. Mayela Mcgrath LPN February 24, 2024 4:35 PM PHYSICAL EXAMINATION: General: The patient is 68 year old male, well nourished, well hydrated frail appearing sitting in a wheelchair, in no acute distress. The patient is oriented to time, place, and person. VITALS: Blood pressure 112/62, pulse 62, temperature 36.3 C (97.3 F), resp. rate 22, height 177.8 cm (5' 10), weight 83.5 kg (184 lb), SpO2 95%. Body mass index is 26.4 kg/m . Head: Normal cephalic, atraumatic Eyes: pupils are equally round, sclera are clear/anicteric Neck is supple with no tracheal deviation Cardiac: normal heart sounds, regular Respiratory: Normal respiratory excursion and pattern. Abdominal exam: benign Extremities: no clubbing, cyanosis or edema. Neuro: non focal Psych: normal mood Assessment IMPRESSION: history of large colon polyp - needs surveillance follow up colonoscopy PLAN: I have discussed the above with the patient. This clinic will offer colonoscopy possible biopsies I have explained the procedure to the patient. I have counseled the patient as to the risks of the procedure, including but not limited to: infection, bleeding, injury to any intrabdominal organs such as liver/spleen, perforation of the GI tract,inability to complete the procedure, complications of anesthesia, etc. - the patient understands. Patient wishes to have Dr. Cardoso for the endoscopist. The patient wishes to proceed. I have answered all questions to the patient s satisfaction and the patient has no further questions. My clinic staff has educated the patient as to the colon cleansing regimen and I have prescribed Golytely for the colon cleansing solution. The patient will be scheduled for the procedure at [facility]. Diagnoses: (Z86.010) History of colonic polyps (primary encounter diagnosis) I have confirmed and edited as necessary, the PFSH and ROS obtained by others. Medical Decision Making: Problems: Moderate: 2+ stable chronic illnesses Risk: Moderate: Decision on minor surgery w/ risk factors Medical Decision Making Level: 4 - Moderate Lacy Lai MD documented in [facility] encounterPro[facility]07-[facility]24 Telephone encounter Note * Telephone Encounter - Monica Cruz MA - 02/03/2024 6:42 PM EDT Pt notified. Advised to notify office if he starts having blood in the stool or diarrhea. Monica Cruz MA [facility]07-01[facility]24 Miscellaneous Notes* Telephone Encounter - Monica Cruz MA - 02/03/2024 6:42 PM EDT Pt notified. Advised to notify office if he starts having blood in the stool or diarrhea. Monica Cruz MA * Telephone Encounter - Jaci Arroyo MD - 02/03/2024 6:23 PM EDT An infection in his bowel would cause diarrhea; if just having foul smelling stool it may be causedby something he ate. Jaci Arroyo MD * Telephone Encounter - Therese Paz LPN - 02/03/2024 10:55 AM EDT calling with a concern that pt may have a stool infection. Reason: BM fowl smelling DENIES: diarrhea/bleeding. Please advise pt. Therese Paz LPN documented in this encounterProtestant Hospital07-01-2024 Telephone encounter Note * Telephone Encounter - Jaci Arroyo MD - 02/03/2024 6:23 PM EDT An infection in his bowel would cause diarrhea; if just having foul smelling stool it may be causedby something he ate. Jaci Arroyo MD [facility] Telephone encounter Note* Telephone Encounter - Therese Paz LPN - 02/03/2024 10:55 AM EDT calling with a concern that pt may have a stool infection. Reason: BM fowl smelling DENIES: diarrhea/bleeding. Please advise pt. Therese Paz LPN [facility]06-27[facility]24 Telephone encounter Note* Telephone Encounter - Jaci Arroyo MD - 01/30/2024 4:04 PM EDT Noted Jaci Arroyo MD [facility] Miscellaneous Notes* Telephone Encounter - Jaci Arroyo MD - 01/30/2024 4:04 PM EDT Noted Jaci Arroyo MD * Telephone Encounter - Amaya Kessler RN - 01/30/2024 3:35 PM EDT Cathy Siu with [facility] calling to update PCP that patient has returned home from his respite stay at [facility] in [place] and there are no concerns at this time. Amaya Kessler RN documented in this encounterProtestant Hospital06-27-2024 Telephone encounter Note * Telephone Encounter - Amaya Kessler RN - 01/30/2024 3:35 PM EDT Cathy Siu with [facility] calling to update PCP that patient has returned home from his respite stay at [facility] in [place] and there are no concerns at this time. Amaya Kessler RN [facility] Telephone encounter Note* Telephone Encounter - Kassandra Tai LPN - 01/22/2024 4:52 PM EDT Patient's nurse Tanisha notified of recommendations, verbalizes understanding of instructions. Kassandra Tai LPN [facility]-19[facility] Miscellaneous Notes* Telephone Encounter - Kassandra Tai LPN - 01/22/2024 4:52 PM EDT Patient's nurse Tanisha notified of recommendations, verbalizes understanding of instructions. Kassandra Tai LPN * Telephone Encounter - Jessie Harmon APRN.CNP - 01/22/2024 4:24 PM EDT Can you please call the nurse back at the long-term care facility and let her know that he is taking all 3 medications. He does follow with cardiology, if she has any further questions we may need todirect those to cardiology. Please let me know if she has any additional questions. Thank you. Jessie Harmon APRN.ESTELLA * Telephone Encounter - Amaya Kessler RN - 01/22/2024 12:43 PM EDT Nurse Garay calling from [facility] with a question regarding patient's medications. Tanisha states the patient is there for a respite stay and their current medication list for patient includes baby aspirin, Plavix and Eliquis.She is calling to verify that patient is ordered all 3 of these medications. Informed Tanisha that according to pt's most recent office visit on 12/31/23, patient is currently ordered all 3 of these medications. Please contact Nurse Garay if provider has recommended medication changes. [phone]. Thank you. documented in this encounterProtestant Hospital06-19-2024 Telephone encounter Note * Telephone Encounter - Jessie Harmon APRN.CNP - 01/22/2024 4:24 PM EDT Can you please call the nurse back at the [facility] and let her know that he is taking all 3 medications. He does follow with cardiology, if she has any further questions we may need todirect those to cardiology. Please let me know if she has any additional questions. Thank you. Jessie Harmon APRN.OPERATIONS LABEL CLERK [facility]06-19-[facility]24 Telephone encounter Note* Telephone Encounter - Amaya Kessler RN - 01/22/2024 12:43 PM EDT Nurse Tanisha calling from [facility] with a question regarding patient's medications. Tanisha states the patient is there for a respite stay and their current medication list for patient includes baby aspirin, Plavix and Eliquis.She is calling to verify that patient is ordered all 3 of these medications. Informed Tanisha that according to pt's most recent office visit on 12/31/23, patient is currently ordered all 3 of these medications. Please contact Nurse Garay if provider has recommended medication changes. [phone]. Thank you. [facility]06-13-2024 Telephone encounter Note* Telephone Encounter - Kimo Adamson MA - 01/16/2024 11:39 AM EDT PA was approved and notified Authorized from December 17, 2023 to January 15, 2025 Kimo Adamson MA [facility]-13[facility] Miscellaneous Notes* Telephone Encounter - Kimo Adamson MA - 01/16/2024 11:39 AM EDT PA was approved and notified Authorized from December 17, 2023 to January 15, 2025 Kimo Adamson MA * Telephone Encounter - Kimo Adamson MA - 01/16/2024 11:38 AM EDT Submitted electronic PA Kimo Kingillat, MA * Telephone Encounter - Therese Paz LPN - 01/16/2024 11:23 AM EDT calling to let you know the pharmacy told her pt needs a PA for his Lorazepam.[facility] and they need this medication to take along. said that pharmacy faxed over form to have PA done. PRIOR AUTHORIZATION Medication for Prior Authorization: Lorazepam Other formulary meds available : NO Insurance Company: [employer] [place] [employer] phone number: [phone] Patient insurance ID number: [id number] Therese Paz LPN . documented in this encounterProtestant Hospital06-13-2024 Telephone encounter Note * Telephone Encounter - Kimo Adamson MA - 01/16/2024 11:38 AM EDT Submitted electronic YAW Adamson MA [facility] Telephone encounter Note* Telephone Encounter - Therese Paz LPN - 01/16/2024 11:23 AM EDT calling to let you know the pharmacy told her pt needs a PA for his Lorazepam.[facility] and they need this medication to take along. said that pharmacy faxed over form to have PA done. PRIOR AUTHORIZATION Medication for Prior Authorization: Lorazepam Other formulary meds available : NO Insurance Company: [employer] [place] [employer] phone number: [phone] Patient insurance ID number: [id number] Therese Paz LPN . [facility] Telephone encounter Note* Telephone Encounter - Kathy Paz LPN - 01/09/2024 5:45 PM EDT Phone call placed patient's requested copy sleep study results mailed to listed residence. PSG dated 01/03/2024 mailed. Patients verbalized understanding, agreed with plan of care, follow up previously scheduled with Dr. Aj stating follow up Dx Stroke questioned patients she stated We are following up tosleep, his stroke was over seven years ago. Kathy Paz LPN [facility]-06-[facility] Miscellaneous Notes* Telephone Encounter - Kathy Paz LPN - 01/09/2024 5:45 PM EDT Phone call placed patient's requested copy sleep study results mailed to listed residence. PSG dated 01/03/2024 mailed. Patients verbalized understanding, agreed with plan of care, follow up previously scheduled with Dr. Aj stating follow up Dx Stroke questioned patients she stated We are following up tosleep, his stroke was over seven years ago. Kathy Paz LPN * Telephone Encounter - Dena Bazan APRN.CNP - 01/09/2024 11:56 AM EDT Please tell that his sleep apnea is mild, so he doesn't qualify for Inspire. Dena Bazan APRN.ESTELLA * Telephone Encounter - Kathy Paz LPN - 01/09/2024 9:10 AM EDT [facility] PSG results scanned for review. Kathy Paz LPN Scan on 01/09/2024 8:14 AM by Provider, JEREMY Nicholson: PSG 01/03/2024 * Telephone Encounter - Eliana Grigsby LPN - 01/07/2024 11:07 AM EDT Sleep Study is pending via [employer]. Eliana Grigsby LPN * Telephone Encounter - Meka Mireles - 01/07/2024 9:37 AM EDT Pts spouse called to check status of results of sleep study done at [facility]. Pt sees Dr. Aj in sooner than available appointments with Dena Bazan who ordered study. Spouse wonders if Dena Bazan would review results and call them. documented in this encounterProtestant Hospital06-06-2024 Telephone encounter Note * Telephone Encounter - Dena Bazan APRN.CNP - 01/09/2024 11:56 AM EDT Please tell that his sleep apnea is mild, so he doesn't qualify for Inspire. Dena Bazan APRN.ESTELLA [facility]-06-2024 Telephone encounter Note* Telephone Encounter - Rachel Buckley MA - 01/09/2024 11:28 AM EDT Called and received identifiable VM for Eli and Afshin. LM on Eli's VM notifying her an Rx has been sent into [facility] for pt. If questions to contact the office and ask to speak with FM Triage Nurse. Rachel Buckley MA [facility]06-06-[facility]24 Miscellaneous Notes* Telephone Encounter - Rachel Buckley MA - 01/09/2024 11:28 AM EDT Called and received identifiable VM for Eli and Afshin. LM on Eli's VM notifying her an Rx has been sent into [facility] for pt. If questions to contact the office and ask to speak with FM Triage Nurse. Rachel Buckley MA * Telephone Encounter - Jaci Arroyo MD - 01/09/2024 11:08 AM EDT Rx sent to [facility] (erroneously sent to [facility]) Jaci Arroyo MD * Telephone Encounter - Kim Person LPN - 01/09/2024 9:34 AM EDT Spouse Eli reports pt has bright redness & pain at the tip of his penis X couple days. Eli states pt gets this occasionally & a med is usually just called in for him. Pt uses [facility] in [place]. Please notify Eli as soon as possible if/when something is called in. Kmi Person LPN documented in this encounterProtestant Hospital06-06-2024 Telephone encounter Note * Telephone Encounter - Jaci Arroyo MD - 01/09/2024 11:08 AM EDT Rx sent to [facility] (erroneously sent to [facility]) Jaci Arroyo MD [facility] Telephone encounter Note* Telephone Encounter - Kim Person LPN - 01/09/2024 9:34 AM EDT Spouse Eli reports pt has bright redness & pain at the tip of his penis X couple days. Eli states pt gets this occasionally & a med is usually just called in for him. Pt uses [facility] in [place]. Please notify Eli as soon as possible if/when something is called in. Kim Person LPN [facility] Telephone encounter Note* Telephone Encounter - Kathy Paz LPN - 01/09/2024 9:10 AM EDT [facility] PSG results scanned for review. Kathy Paz LPN Scan on 01/09/2024 8:14 AM by Provider, External, BRAULIOC: PSG 01/03/2024 [facility] Telephone encounter Note* Telephone Encounter - Milan Brunson RN - 01/08/2024 2:39 PM EDT Faxed demographic sheet to [facility], per HUNTER Musa, request. Reports patient will be coming there. . Confirmation received. [facility]06-05-2024 Miscellaneous Notes* Telephone Encounter - Milan Brunson RN - 01/08/2024 2:39 PM EDT Faxed demographic sheet to [facility], per HUNTER Musa, request. Reports patient will be coming there. . Confirmation received. documented in this encounterProtestant Hospital06-04-2024 Telephone encounter Note * Telephone Encounter - Eliana Grigsby LPN - 01/07/2024 11:07 AM EDT Sleep Study is pending via [employer]. Eliana Grigsby LPN [facility]-04-[facility] Telephone encounter Note* Telephone Encounter - Meka Mireles - 01/07/2024 9:37 AM EDT Pts spouse called to check status of results of sleep study done at [facility]. Pt sees Dr. Aj in sooner than available appointments with Dena Bazan who ordered study. Spouse wonders if Denachrissy Bazan would review results and call them. [facility] Work Phone: 1(107) 560-616805-28-2024 Nurse Note* Rachel Buckley MA - 12/31/2023 3:49 PM EDT OV note from today was faxed to at the [facility] at [phone]. Rachel Buckley MA [facility]05-28-2024 Nurse Note* Rachel Buckley MA - 12/31/2023 3:49 PM EDT OV note from today was faxed to at the [facility] at [phone]. Rachel Buckley MA documented in this encounterProtestant Hospital05-28-2024 Telephone encounter Note * Telephone Encounter - Rachel Buckley MA - 12/31/2023 3:07 PM EDT Pt in office for a visit with PCP. requesting refill of Losartan to go to [facility]. Notified pt and message would be routed to Provider. Last OV: 07/08/23 Next OV: 03/02/24 Last Rx: 12/25/22 #90 w/3. Rachel Buckley MA [facility]05-28-2024 Miscellaneous Notes* Telephone Encounter - Rachel Buckley MA - 12/31/2023 3:07 PM EDT Pt in office for a visit with PCP. requesting refill of Losartan to go to [facility]. Notified pt and message would be routed to Provider. Last OV: 07/08/23 Next OV: 03/02/24 Last Rx: 12/25/22 #90 w/3. Rachel Buckley MA documented in this encounterProtestant Hospital05-28-2024 History of Present illness Narrative* Jaci Arroyo MD - 12/31/2023 2:20 PM EDT Chief Complaint Patient presents with: F/U 3 Month HPI Afshin Zee is a 68 year old male who presents here today for a 3 month follow up. Pt here today for a 3 month follow up. Needs OV notes printed from today and orders for PT/OT/Speech while in Respite care at [facility]. Eli will be going to [place] from January 17 - January 24. Here with GenieeTete from [facility] [employer] She will be going to [facility] with patient. Pt reports that he's not comfortable with taking his medication to the Facility and them getting his medication confused. Hoping that orders can be written for his medications to be dispensed through their Pharmacy there. Doing PT at [facility], this was ordered by Ortho. Has Speech as well, but pt has to do Swallow Test, which is scheduled around the week of 01/19/24. states that Speech Therapy has been very helpful and is important to continue. GI - Hx of rectal mass, following with Dr. Sandoval. Hx of surgery on 07/18/23. Is supposed to f/u with him in 6 months. Repeat Colonoscopy scheduled with Dr. Cardoso on 12/31/23, but had to reschedule for 02/11/24. Denies any urinary issues. ED - Hx of ED, has tried Cialis, but was unable to have full erection, which discouraged him. Uses Sildenafil prn. Anemia - Takes Ferosul 325 mg once daily, this was recently increased to bid due to low levels by Neurology; hoping to help with restless legs.. GERD - Takes Pepcid 20 mg daily prn, stable. Anxiety/Moods/Insomnia - Chronic use of Ativan 0.5 mg 1-2 tab po TID. Pt also taking Buspar 10 mg 1tab po TID and Trazodone 100 mg at bedtime. Cardio - Hx of CAD, Afib and HTN. Follows with Cardio, Dr. Quintero. Checking BP at home, overall doing good. Denies any chest pain, sob or dizziness. On current regimen of Eliquis 5 mg 1 tab po bid,Amlodipine 10 mg 0.5 tab po bid, ASA 81 mg daily, Potassium 10 mEq 2 tabs po TID, Pacerone 100 mg 1tab daily, Losartan 25 mg once daily and Lopressor 25 mg 0.5 tab po bid. CAD/Lipid/CVA - Follows with Vascular, Dr. Cruz and Neurology Dena Bazan and Dr. Aj. Pt on current regimen of Zetia 10 mg once daily, Eliquis 5 mg 1 tab po bid, Lipitor 40 mg once daily and ASA 81 mg daily. Was recently scheduled for continued issues with sleep apnea, is scheduled to have PSG done at [facility] this Saturday. Has went through 3 masks with his CPAP and struggles with this. Neuro discussed Inspire device, hoping this solves his issues. Pulm - Following with Dr. Mcgrath for emphysema. Reports breathing is fair. Does 2 breathing treatments through out the day. Wearing 6 L of 02 at night. Asking if they should take his equipment to the Facility, to make sure he receives the treatment. Pt has Stiolto 2.5-2.5 mcg 2 puffs once daily, Albuterol Inhaler HFA 90 mcg 2 puffs every 4 hours prn and Proventil 2.5 mg/3 mL every 4 hours prn. Wears hearing aids, [facility]. Working with Director [facility] through [facility] - Kandy Fernandez. P#:[phone]. F#: [phone] HM - Behavioral Health Screening completed. Declined Hep C screening. Received RSV vaccine. Discussed Shingles vaccine, will review with Insurance. Behavioral Health Screening PHQ-2 Score: 0 (Lower risk for depression) JESS-2 Score: 1 (Lower risk for anxiety) Recommendation: continuing current treatment plan Past medical history, appointments, medications, allergies reviewed. Previous Medical History PAST MEDICAL HISTORY Diagnosis Date Acute cerebral infarction (HCC) left LEANN (acute kidney injury) (HCC) Anemia Aneurysm (HCC) Anxiety state Atrial fibrillation (HCC) 11/2016 Balanitis CAD (coronary artery disease) Carotid stenosis COPD (chronic obstructive pulmonary disease) (HCC) Dysphasia Emphysema lung (HCC) History of blood transfusion 03/2023 Hypertension Hypoxia 03/2023 DARON (obstructive sleep apnea) PVD (peripheral vascular disease) (HCC) Respiratory failure (HCC) hypoxic-ventilator dependent Stroke (cerebrum) (HCC) Tobacco abuse Previous Surgical History PAST SURGICAL HISTORY Procedure Laterality Date ANKLE SURGERY HX Right 08/07/2023 Dr. Kim. Right ankle ORIF due to fracture CABG CONSULT 10/30/2016 multi vessel COLONOSCOPY SCREENING 04/10/2023 EGD W/O BRSH SPEC VARICIES INJ 04/11/2023 EGD W/O BRSH SPEC VARICIES INJ 04/10/2023 HEART CATHETERIZATION 09/17/2016 PAST SURGICAL HISTORY OF 2017 Aneurysm and stent surgery related to stroke TRACHEOSTOMY HX Family History FAMILY HISTORY Problem Relation Age of Onset Heart Mother CO in her 70s, pacemaker Diabetes Mother Stroke Father other (AAA) Father other (CAD) Brother Hypertension Brother Patient Allergies ALLERGIES Allergen Reactions Doxycycline GI Upset GI upset (stomach ache/cramping/diarrhea) and splotchy face Sulfate Salt Hives Zpak [Azithromycin] Hives Lisinopril Swelling Lip swelling after starting lisinopril. Current Medications Current Outpatient Medications on File Prior to Visit Medication Sig ferrous sulfate (FEROSUL) 325 mg (65 mg iron) tablet Take 1 tablet by mouth two times a day. amiodarone (PACERONE) 100 mg tablet TAKE 1 TABLET BY MOUTH ONCE DAILY *DO NOT TAKE IF HEART RATE ISLESS THAN 40* atorvastatin (LIPITOR) 40 mg tablet take 1 tablet by mouth once daily famotidine (PEPCID) 20 mg tablet take 1 tablet by mouth at bedtime as needed escitalopram oxalate (LEXAPRO) 20 mg tablet take 1 tablet by mouth once daily apixaban (ELIQUIS) 5 mg tab(s) take 1 tablet by mouth twice daily LORazepam (ATIVAN) 0.5 mg Take 1-2 tablets by mouth three times a day as needed for up to 90 days. metoprolol tartrate, short acting, (LOPRESSOR) 25 mg tablet TAKE 1/2 TABLET BY MOUTH TWICE DAILY. HOLD IF HEART RATE IS LESS THAN 60 busPIRone (BUSPAR) 15 mg tablet Take 1 tablet by mouth three times a day. clopidogrel (PLAVIX) 75 mg tablet 75 mg two times a day. acetaminophen (TYLENOL EXTRA STRENGTH) 500 mg tablet Take 2 tablets by mouth three times a day as needed for pain. zinc oxide 20 % ointment Apply to affected area as needed. sildenafil (VIAGRA) 100 mg tablet Take 1 tablet by mouth once daily as needed. Take 30-60 minutes before sexual activity. tiotropium-olodaterol (STIOLTO RESPIMAT) 2.5-2.5 mcg/actuation Inhale 2 Puffs as instructed once daily. traZODone (DESYREL) 100 mg tablet Take 1 tablet by mouth daily at bedtime. albuterol (PROVENTIL) 2.5 mg /3 mL (0.083 %) nebulizer solution Use 3 mL via nebulizer every 4 hours as needed for wheezing/shortness of breath. Use over 5-15minutes. albuterol HFA (PROVENTIL HFA, VENTOLIN HFA) 90 mcg/actuation inhaler Inhale 2 Puffs as instructed every 4 hours as needed. MELATONIN ORAL Take by mouth daily at bedtime. LORazepam (ATIVAN) 0.5 mg Take 1-2 tablets by mouth three times a day as needed for up to 30 days. baclofen 10 mg tablet TAKE 1/2 TABLET BY MOUTH THREE TIMES A DAY aspirin, enteric coated (ASPIRIN, ENTERIC COATED) 81 mg EC tablet Take 81 mg by mouth once daily. amLODIPine (NORVASC) 10 mg tablet Take 0.5 tablets by mouth twice daily. Take 1/2 tablet twice daily multivitamin tablet Take 1 tablet by mouth once daily. fluticasone (FLONASE) 50 mcg/actuation nasal spray Use 1 [place] in each nostril twice daily. Rinse mouth after use. potassium chloride (K-TAB) 10 mEq tablet Take 2 tablets by mouth three times daily. ezetimibe (ZETIA) 10 mg tablet Take 1 tablet by mouth once daily. losartan (COZAAR) 25 mg tablet take 1 tablet by mouth once daily Blood Pressure Monitor kit 1 application twice daily. Measure patient for correct size. Patient needs cuff for left arm readings. COMPOUNDED PRESCRIPTION Articulating AFO foot brace for right leg. Send to [employer]. Dx: I63.9 COMPOUNDED PRESCRIPTION EMBER WALKER DX I63.9 weight 162 # Diaper,Brief, Adult,Disposable (DEPEND REAL FIT BRIEF MEN L/XL) misc 1 Each as needed. Blood Pressure Monitor kit 1 Kit once daily. Please measure patient for correct size. Current Facility-Administered Medications on File Prior to Visit Medication perflutren lipid microspheres 1.3 mL in NaCl (PF) 0.9% 10 mL injection (DEFINITY) sodium chloride 0.9 % (flush) 10 mL (BD POSIFLUSH) Social History Social History Tobacco Use Smoking status: Former Packs/day: 2.00 Years: 45.00 Additional pack years: 0.00 Total pack years: 90.00 Types: Cigarettes Quit date: 07/08/2016 Years since quittin.4 Smokeless tobacco: Never Tobacco comments: 07/08/2016 Vaping Use Vaping Use: Never used Substance Use Topics Alcohol use: No Drug use: Never EXAM: BP 116/68 (BP Site: Left Arm, BP Position: Sitting, BP Cuff Size: Regular Adult) Pulse 62 Resp 18 Wt 85.2 kg (187 lb 12.8 oz) BMI 27.73 kg/m General Appearance: Well appearing, alert, in no acute distress, well-hydrated, well nourished.. Lungs: Lungs clear to auscultation. No wheezing, rhonchi, rales.. Heart: RRR without murmur, gallop, or rubs. No ectopy. Health Maintenance List Abdominal Aortic Aneurysm Screening Never done Hepatitis C Screening Never done DTaP,Tdap,Td Vaccine(1 - Tdap) Never done Alpha-1 Antitrypsin Deficiency Screening Never done Lung Cancer Screening Never done Shingrix Vaccine(1 of 2) Never done Prostate Cancer Screening Discussion due on 06/03/2015 Behavioral Health Screening Never done Covid-19 Vaccine( season) due on 10/10/2023 Annual PCP Team Chronic Disease Visit due on 09/27/2024 LDL Cholesterol due on 11/24/2024 Serum Creatinine due on 11/24/2024 BP Controlled (<130/80) due on 12/15/2024 Diabetes Screening due on 11/24/2026 Colorectal Cancer Screening due on 06/19/2028 Lipid Screening due on 11/24/2028 Spirometry Completed Influenza Vaccine Completed Advance Directive Discussion Completed RSV Vaccine Completed Pneumococcal Vaccine: 65+ Completed Data reviewed Appointment on 12/16/2023 Component Date Value Ferritin 12/16/2023 23.2 (L) Iron 12/16/2023 50 TIBC 12/16/2023 419 (H) Transferrin Saturation 12/16/2023 11.9 (L) Vitamin D 25 Hydroxy 12/16/2023 41.3 Appointment on 11/25/2023 Component Date Value Hemoglobin A1C 11/25/2023 4.9 Estimated Average Glucose 11/25/2023 94 WBC 11/25/2023 11.55 (H) RBC 11/25/2023 4.36 Hemoglobin 11/25/2023 12.7 (L) Hematocrit 11/25/2023 38.7 (L) MCV 11/25/2023 88.8 MCH 11/25/2023 29.1 MCHC 11/25/2023 32.8 RDW-CV 11/25/2023 12.7 Platelet Count 11/25/2023 288 MPV 11/25/2023 10.1 Neutrophils % 11/25/2023 66.3 Abs Neut 11/25/2023 7.66 (H) Lymphocytes % 11/25/2023 18.1 Abs Lymph 11/25/2023 2.09 Monocytes % 11/25/2023 9.5 Abs [place] 11/25/2023 1.10 (H) Eosinophils % 11/25/2023 4.5 Abs Eosin 11/25/2023 0.52 (H) Basophils % 11/25/2023 0.9 Abs Baso 11/25/2023 0.10 Immature Granulocytes % 11/25/2023 0.7 Abs Immature Gran 11/25/2023 0.08 NRBC 11/25/2023 0.0 Absolute nRBC 11/25/2023 <0.01 Diff Type 11/25/2023 Auto Cholesterol, Total 11/25/2023 122 Triglyceride 11/25/2023 114 HDL Cholesterol 11/25/2023 41 Non HDL Cholesterol 11/25/2023 81 Fasting Time 11/25/2023 12 VLDL Cholesterol 11/25/2023 23 TC:HDL Ratio 11/25/2023 2.98 LDL Cholesterol 11/25/2023 58 LDL:HDL Ratio 11/25/2023 1.41 Protein, Total 11/25/2023 7.2 Albumin 11/25/2023 4.2 Calcium, Total 11/25/2023 9.2 Bilirubin, Total 11/25/2023 0.6 Alkaline Phosphatase 11/25/2023 122 (H) AST 11/25/2023 13 (L) ALT 11/25/2023 15 Glucose 11/25/2023 89 BUN 11/25/2023 15 Creatinine 11/25/2023 1.09 Sodium 11/25/2023 137 Potassium 11/25/2023 4.2 Chloride 11/25/2023 104 CO2 11/25/2023 25 Anion Gap 11/25/2023 8 (L) Estimated Glomerular Marco Antonio* 11/25/2023 74 ASSESSMENT/PLAN: 1. Anxiety - ICD9: 300.00, ICD10: F41.9 (primary diagnosis) Continue current medications. 2. Depression, unspecified depression type - ICD9: 311, ICD10: F32.A Continue current medications. 3. Chronic insomnia - ICD9: 780.52, ICD10: F51.04 4. Hypertension, essential - ICD9: 401.9, ICD10: I10 - Controlled - Continue current medications - Recommend home blood pressure monitoring, to bring results to next visit - Encouraged sodium restriction, DASH or Mediterranean diet - Recommend regular aerobic exercise 5. Stage 3a chronic kidney disease (HCC) - ICD9: 585.3, ICD10: N18.31 - eGFR: 74 Monitor 6. Elevated glucose - ICD9: 790.29, ICD10: R73.09 Stable 7. Hyperlipidemia, unspecified hyperlipidemia type - ICD9: 272.4, ICD10: E78.5 - Controlled - Continue current medications - Counseled on healthy diet and regular exercise 8. Erectile dysfunction, unspecified erectile dysfunction type - ICD9: 607.84, ICD10: N52.9 9. Iron deficiency anemia due to chronic blood loss - ICD9: 280.0, ICD10: D50.0 Taking iron 10. Paroxysmal atrial fibrillation (HCC) - ICD9: 427.31, ICD10: I48.0 11. Chronic obstructive pulmonary disease, unspecified COPD type (HCC) - ICD9: 496, ICD10: J44.9 Continue current medications. 12. Cerebrovascular accident (CVA), unspecified mechanism (HCC) - ICD9: 434.91, ICD10: I63.9 Stable 13. Coronary artery disease involving [place] coronary artery of [place] heart without angina pectoris - ICD9: 414.01, ICD10: I25.10 Stable Follow with Cardiology 14. 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) - ICD9: 434.11, ICD10: I63.132 15. Right hemiplegia (HCC) - ICD9: 342.90, ICD10: G81.91 PT 16. Dysphasia - ICD9: 784.59, ICD10: R47.02 Speech Therapy 17. Aphasia as late effect of cerebrovascular accident - ICD9: 438.11, ICD10: I69.320 Speech Therapy 3 mo f/u with labs. I agree with the Chief Complaint, ROS, and Past Histories independently gathered by the clinical technical support technician and the remaining scribed note accurately describes my personal service to the patient. Medical Decision Making: Problems: Moderate: 2+ stable chronic illnesses Risk: Moderate: Drug management Medical Decision Making Level: 4 - Moderate Jaci Arroyo MD The documentation for this note was completed by Rachel Buckley MA acting as scribe for Jaci Arroyo MD. December 31, 2023 2:53 PM. Rachel Buckley MA documented in this encounterProtest[facility]05-[facility]24 Telephone encounter Note * Telephone Encounter - Eliana Grigsby LPN - 12/27/2023 3:58 PM EDT Pt scheduled for sleep study 01-03-24 at [facility]. Eliana Grigsby LPN [facility]-24-[facility] Miscellaneous Notes* Telephone Encounter - Eliana Grigsby LPN - 12/27/2023 3:58 PM EDT Pt scheduled for sleep study 01-03-24 at [facility]. Eliana Grgisby LPN * Telephone Encounter - Eliana Grigsby LPN - 12/25/2023 2:55 PM EDT TC to [facility] Sleep lab, unable to speak with anyone. Left a VM for them to return call. Eliana Grigsby LPN * Telephone Encounter - Pati Hare LPN - 12/25/2023 10:31 AM EDT Patients calling, states that they have still not received any results from [facility] sleep lab. asking if we have received these results. They are leaving on 01/18 and would like something set upif needed. Please advise. documented in this encounterProtestant Hospital05-22-2024 Telephone encounter Note * Telephone Encounter - Eliana Grigsby LPN - 12/25/2023 2:55 PM EDT TC to [facility] Sleep lab, unable to speak with anyone. Left a VM for them to return call. Eliana Grigsby LPN [facility]05-22-2024 Telephone encounter Note* Telephone Encounter - Pati Hare LPN - 12/25/2023 10:31 AM EDT Patients calling, states that they have still not received any results from [facility] sleep lab. asking if we have received these results. They are leaving on 01/18 and would like something set upif needed. Please advise. [facility]05-17-[facility]24 Telephone encounter Note* Telephone Encounter - Eliana Grigsby LPN - 12/20/2023 4:47 PM EDT TC to who voiced understanding. Will call [facility] sleep lab next week if she is not contacted to schedule. Eliana Grigsby LPN [facility]05-17-2024 Miscellaneous Notes* Telephone Encounter - Eliana Grigsby LPN - 12/20/2023 4:47 PM EDT TC to who voiced understanding. Will call [facility] sleep lab next week if she is not contacted to schedule. Eliana Grigsby LPN * Telephone Encounter - Dena Bazan APRN.ESTELLA - 12/20/2023 4:31 PM EDT Order for iron ferrous sulfate sent to pharmacy. Recheck labs in 3 mos, order placed. Also, called to ask why PSG ordered for [facility]--please tell her we did send order to [facility]. The order automatically goes to [facility] (we should have cancelled that). Dena Bazan APRN.OPERATIONS LABEL CLERK * Telephone Encounter - Raiza John RN - 12/20/2023 3:05 PM EDT Spouse (Eli) returns call and provider message reviewed. Eli reports that patient is taking a MVI. She is requesting that the iron order be sent to [facility]. Pended. Raiza John, RN * Telephone Encounter - Eliana Grigsby LPN - 12/20/2023 1:55 PM EDT TC to pt with no answer, left VM to return call. Eliana Grigsby LPN * Telephone Encounter - Dena Bazan APRN.CNP - 12/18/2023 4:36 PM EDT Vitamin D is normal. Iron stores are low, as indicated by ferritin 23. If he can tolerate taking more iron he can take the supplement twice a day (it can cause constipation). Ferritin less than 75 will often cause restless legs symptoms. If he can't tolerate more oral iron then we can refer to Hematology to see if they would give IV iron to treat the RLS. * Telephone Encounter - Therese Paz LPN - 12/18/2023 12:29 PM EDT calling for lab results. Please advise. Therese Paz LPN documented in this encounterProtestant Hospital05-17-2024 Telephone encounter Note * Telephone Encounter - Dena Bazan APRN.CNP - 12/20/2023 4:31 PM EDT Order for iron ferrous sulfate sent to pharmacy. Recheck labs in 3 mos, order placed. Also, called to ask why PSG ordered for [facility]--please tell her we did send order to [facility]. The order automatically goes to [facility] (we should have cancelled that). Dena Bazan APRN.ESTELLA [facility]05-17-2024 Telephone encounter Note* Telephone Encounter - Raiza John RN - 12/20/2023 3:05 PM EDT Spouse (Eli) returns call and provider message reviewed. Eli reports that patient is taking a MVI. She is requesting that the iron order be sent to [facility]. Pended. Raiza John RN [facility]05-17-2024 Telephone encounter Note* Telephone Encounter - Eliana Grigsby LPN - 12/20/2023 1:55 PM EDT TC to pt with no answer, left VM to return call. Eliana Grigsby LPN [facility]05-16-[facility] Telephone encounter Note* Telephone Encounter - Jessie Harmon APRN.CNP - 12/19/2023 12:49 PM EDT The following approved medication requests have been transmitted electronically. Requested Prescriptions Pending Prescriptions Disp Refills amiodarone (PACERONE) 100 mg tablet [Pharmacy Med Name: AMIODARONE 100 MG TABS 100 Tablet] 30 tablet 11 Sig: TAKE 1 TABLET BY MOUTH ONCE DAILY *DO NOT TAKE IF HEART RATE IS LESS THAN 40* atorvastatin (LIPITOR) 40 mg tablet [Pharmacy Med Name: ATORVASTATIN 40MG TABLET 40 Tablet] 30 tablet 11 Sig: take 1 tablet by mouth once daily famotidine (PEPCID) 20 mg tablet [Pharmacy Med Name: FAMOTIDINE 20 MG TAB 20 Tablet] 30 tablet 11 Sig: take 1 tablet by mouth at bedtime as needed escitalopram oxalate (LEXAPRO) 20 mg tablet [Pharmacy Med Name: ESCITALOPRAM 20MG TAB 20 Tablet] 30tablet 11 Sig: take 1 tablet by mouth once daily ELIQUIS 5 mg tab(s) [Pharmacy Med Name: ELIQUIS 5 MG TABLET 5 Tablet] 60 tablet 11 Sig: take 1 tablet by mouth twice daily Jessie Harmon APRN.ESTELLA [facility]05-16-2024 Miscellaneous Notes* Telephone Encounter - Jessie Harmon APRN.CNP - 12/19/2023 12:49 PM EDT The following approved medication requests have been transmitted electronically. Requested Prescriptions Pending Prescriptions Disp Refills amiodarone (PACERONE) 100 mg tablet [Pharmacy Med Name: AMIODARONE 100 MG TABS 100 Tablet] 30 tablet 11 Sig: TAKE 1 TABLET BY MOUTH ONCE DAILY *DO NOT TAKE IF HEART RATE IS LESS THAN 40* atorvastatin (LIPITOR) 40 mg tablet [Pharmacy Med Name: ATORVASTATIN 40MG TABLET 40 Tablet] 30 tablet 11 Sig: take 1 tablet by mouth once daily famotidine (PEPCID) 20 mg tablet [Pharmacy Med Name: FAMOTIDINE 20 MG TAB 20 Tablet] 30 tablet 11 Sig: take 1 tablet by mouth at bedtime as needed escitalopram oxalate (LEXAPRO) 20 mg tablet [Pharmacy Med Name: ESCITALOPRAM 20MG TAB 20 Tablet] 30tablet 11 Sig: take 1 tablet by mouth once daily ELIQUIS 5 mg tab(s) [Pharmacy Med Name: ELIQUIS 5 MG TABLET 5 Tablet] 60 tablet 11 Sig: take 1 tablet by mouth twice daily Jessie Harmon APRN.OPERATIONS LABEL CLERK documented in this encounterProtestant Hospital05-15-2024 Telephone encounter Note * Telephone Encounter - Dena Bazan APRN.ESTELLA - 12/18/2023 4:36 PM EDT Vitamin D is normal. Iron stores are low, as indicated by ferritin 23. If he can tolerate taking more iron he can take the supplement twice a day (it can cause constipation). Ferritin less than 75 will often cause restless legs symptoms. If he can't tolerate more oral iron then we can refer to Hematology to see if they would give IV iron to treat the RLS. [facility]05-15-2024 Telephone encounter Note* Telephone Encounter - Therese Paz LPN - 12/18/2023 12:29 PM EDT calling for lab results. Please advise. Therese Paz LPN [facility]05-14-[facility]24 Telephone encounter Note* Telephone Encounter - Raiza John RN - 12/17/2023 10:17 AM EDT Spouse Eli calls to question why [facility] called to schedule Afshin's polysomnogram when it is supposed to be completed at [facility]. Faxed orders to [facility] Sleep Lab in case they weren't received previously. Eli marinelli should hear from [facility] and will follow up with [facility] for scheduling. Raiza John RN [facility]05-14-2024 Miscellaneous Notes* Telephone Encounter - Raiza John RN - 12/17/2023 10:17 AM EDT Spouse Eli calls to question why [facility] called to schedule Afshin's polysomnogram when it is supposed to be completed at [facility]. Faxed orders to [facility] Sleep Lab in case they weren't received previously. Eli marinelli should hear from [facility] and will follow up with [facility] for scheduling. Raiza John RN documented in this encounterProtestant Hospital05-13-2024 History of Present illness Narrative* Dena Bazan APRN.OPERATIONS LABEL CLERK - 12/16/2023 3:30 PM EDT Images from the original note were not included. [facility] New Patient Evaluation PATIENT NAME: Afshin Zee DATE OF SERVICE: December 13, 2023 CONSULTING PROVIDER: Dr Kimo Mcgrath REASON FOR CONSULT: Dr Mcgrath sends the patient for an opinion about DARON, intolerant of PAP interface, ?candidate for [employer]. My findings and recommendations will be transmitted electronically via shared medical record to the consulting provider. HPI: Afshin Zee is a 68 year old male. Sleep-related history: DARON, didn't tolerate PAP therapy, tried multiple masks with CPAP. Accompanied by his who is needed for answering questions. They are interested in learning about Insp[employer]. Expressive aphasia secondary to stroke On supplemental oxygen 6L at night SLEEP-WAKE SCHEDULE Bedtime: 10-11 PM. He has a hard time falling asleep. Time to fall asleep: 1 hr Wake time: 830 AM After falling asleep: he wakes up 2 time(s) per night, because of the need to urinate. On weekends, he tends to stay up until 11 PM-MN and sleeps until 11 AM. Average total sleep time (in a 24 hour period): 6 hours. SLEEP-RELATED DETAILS Preferred sleep position: side or back Breathing disturbances and other behaviors during sleep: snoring and moving around a lot. Accompanied by his , they are interested in [employer]. Bruxism: edentulous GERD or aspiration: No Waking up with heart pounding or racing: Yes Anxiety or rumination: Yes He reports having an urge to move the legs. The urge to move the legs only occurs in the evening ornighttime. The urge to move the legs begins or worsens during periods of rest or inactivity (e.g. lying or sitting). The urge to move the legs is partially or totally relieved by movements such as walking or stretching, at least as long as the activity continues. The urge to move the legs occurs 7 nights per week and began many years ago. There is history of iron deficiency or anemia. He is on aniron supplement. He has been told that he has leg kicking during sleep. He denies any history of parasomnias. Excessive daytime sleepiness / fatigue is a problem. Excessive Daytime sleepiness/fatigue has been a problem for years. He does not report sleep paralysis or sleep-related hallucinations or cataplexy WAKE-RELATED DETAILS He does not work. He does have difficulty with memory or concentration. He does not drive. He does not take naps. He does not drink caffeinated beverages. There has not been a recent change in weight. Patient Questionnaires Sleep Scores 02/03/2021 PHQ-9 Score 0 05/10/2022 PROMIS Global Health - (T-Scores - the mean of general population = 50. Five points is a clinicallymeaningful difference.) Physical T-Score 44.9 Mental T-Score 45.8 PAST TREATMENTS: CPAP PRIOR SLEEP STUDIES: A split night polysomnogram performed on 09/26/21 revealed an AHI of 5.5 (CMS) (16.6 AASM). During the PAP titration portion of the study, a PAP setting of 9 cm H20 with 4 LPM O2 recommended. OTHER RELEVANT LABS AND STUDIES: 06/06/23 ferritin 38, iron 39, transferrin saturation 11 11/25/23 hgb 12.7 PAST MEDICAL HISTORY Diagnosis Date Acute cerebral infarction (HCC) left LEANN (acute kidney injury) (HCC) Anemia Aneurysm (HCC) Anxiety state Atrial fibrillation (HCC) 11/2016 Balanitis CAD (coronary artery disease) Carotid stenosis COPD (chronic obstructive pulmonary disease) (HCC) Dysphasia Emphysema lung (HCC) History of blood transfusion 03/2023 Hypertension Hypoxia 03/2023 DARON (obstructive sleep apnea) PVD (peripheral vascular disease) (HCC) Respiratory failure (HCC) hypoxic-ventilator dependent Stroke (cerebrum) (HCC) Tobacco abuse PAST SURGICAL HISTORY Procedure Laterality Date ANKLE SURGERY HX Right 08/07/2023 Dr. Kim. Right ankle ORIF due to fracture CABG CONSULT 10/30/2016 multi vessel COLONOSCOPY SCREENING 04/10/2023 EGD W/O RUST SPEC VARICIES INJ 04/11/2023 EGD W/O BRSH SPEC VARICIES INJ 04/10/2023 HEART CATHETERIZATION 09/17/2016 PAST SURGICAL HISTORY OF 2017 Aneurysm and stent surgery related to stroke TRACHEOSTOMY HX ACTIVE PROBLEM LIST Hyperlipidemia Erectile Dysfunction Cervicalgia Chronic Right Shoulder Pain Occlusion of Left Carotid Artery Stroke (Cerebrum) (Hcc) Aneurysm (Hcc) Essential Hypertension Anxiety Chronic Insomnia Right Hemiplegia (Hcc) Bradycardia Dysphasia Coronary Artery Disease Involving [place] Coronary Artery of [place] Heart Without Angina Pectoris Paroxysmal Atrial Fibrillation (Hcc) Aphasia As Late Effect of Cerebrovascular Accident Stage 3a Chronic Kidney Disease (Hcc) Centrilobular Emphysema (Hcc) Former Cigarette Smoker Stage 3 Chronic Kidney Disease, Unspecified Whether Stage 3a Or 3b Ckd (Hcc) Pre-Operative Cardiovascular Examination Allergies As of Date: 12/16/2023 Allergen Noted Reaction DOXYCYCLINE 12/11/2022 GI Upset SULFATE SALT 10/03/2018 Hives ZPAK [AZITHROMYCIN] 10/03/2018 Hives LISINOPRIL 09/27/2016 Swelling Fully Assessed 12/16/2023 CURRENT MEDICATIONS: LORazepam (ATIVAN) 0.5 mg^Take 1-2 tablets by mouth three times a day as needed for up to 90 days.^Disp: 90 tablet^Rfl: 5 metoprolol tartrate, short acting, (LOPRESSOR) 25 mg tablet^TAKE 1/2 TABLET BY MOUTH TWICE DAILY. HOLD IF HEART RATE IS LESS THAN 60^Disp: 30 tablet^Rfl: 10 busPIRone (BUSPAR) 15 mg tablet^Take 1 tablet by mouth three times a day.^Disp: 90 tablet^Rfl: 5 clopidogrel (PLAVIX) 75 mg tablet^75 mg two times a day.^Disp: ^Rfl: acetaminophen (TYLENOL EXTRA STRENGTH) 500 mg tablet^Take 2 tablets by mouth three times a day as needed for pain.^Disp: ^Rfl: zinc oxide 20 % ointment^Apply to affected area as needed.^Disp: ^Rfl: sildenafil (VIAGRA) 100 mg tablet^Take 1 tablet by mouth once daily as needed. Take 30-60 minutes before sexual activity.^Disp: 9 tablet^Rfl: 5 tiotropium-olodaterol (STIOLTO RESPIMAT) 2.5-2.5 mcg/actuation^Inhale 2 Puffs as instructed once daily.^Disp: 1 Each^Rfl: 11 FEROSUL 325 mg (65 mg iron) tablet^take 1 tablet by mouth once daily^Disp: 30 tablet^Rfl: 4 traZODone (DESYREL) 100 mg tablet^Take 1 tablet by mouth daily at bedtime.^Disp: 30 tablet^Rfl: 11 albuterol (PROVENTIL) 2.5 mg /3 mL (0.083 %) nebulizer solution^Use 3 mL via nebulizer every 4 hours as needed for wheezing/shortness of breath. Use over 5- 15minutes.^Disp: 360 mL^Rfl: 3 albuterol HFA (PROVENTIL HFA, VENTOLIN HFA) 90 mcg/actuation inhaler^Inhale 2 Puffs as instructed every 4 hours as needed.^Disp: 3 Each^Rfl: 3 apixaban (ELIQUIS) 5 mg tab(s)^TAKE ONE (1) TABLET BY MOUTH TWICE DAILY^Disp: ^Rfl: MELATONIN ORAL^Take by mouth daily at bedtime.^Disp: ^Rfl: baclofen 10 mg tablet^TAKE 1/2 TABLET BY MOUTH THREE TIMES A DAY^Disp: 45 tablet^Rfl: 11 aspirin, enteric coated (ASPIRIN, ENTERIC COATED) 81 mg EC tablet^Take 81 mg by mouth once daily.^Disp: ^Rfl: multivitamin tablet^Take 1 tablet by mouth once daily.^Disp: 90 tablet^Rfl: 3 potassium chloride (K-TAB) 10 mEq tablet^Take 2 tablets by mouth three times daily.^Disp: 540 tablet^Rfl: 3 ezetimibe (ZETIA) 10 mg tablet^Take 1 tablet by mouth once daily.^Disp: 90 tablet^Rfl: 3 escitalopram oxalate (LEXAPRO) 20 mg tablet^TAKE 1 TABLET BY MOUTH ONCE DAILY^Disp: 30 tablet^Rfl: 10 atorvastatin (LIPITOR) 40 mg tablet^TAKE 1 TABLET BY MOUTH ONCE DAILY^Disp: 30 tablet^Rfl: 10 famotidine (PEPCID) 20 mg tablet^TAKE 1 TABLET BY MOUTH AT BEDTIME NEEDED^Disp: 30 tablet^Rfl: 10 amiodarone (PACERONE) 100 mg tablet^TAKE 1 TABLET BY MOUTH ONCE DAILY *DO NOT TAKE IF HEART RATE ISLESS THAN 40*^Disp: 30 tablet^Rfl: 10 losartan (COZAAR) 25 mg tablet^take 1 tablet by mouth once daily^Disp: 90 tablet^Rfl: 3 Blood Pressure Monitor kit^1 application twice daily. Measure patient for correct size. Patient needs cuff for left arm readings.^Disp: 1 Kit^Rfl: 0 COMPOUNDED PRESCRIPTION^Articulating AFO foot brace for right leg. Send to [employer]. Dx: I63.9^Disp: 1 Device^Rfl: 0 COMPOUNDED PRESCRIPTION^EMBER WALKER DX I63.9 weight 162 #^Disp: 1 Each^Rfl: 0 Diaper,Brief, Adult,Disposable (DEPEND REAL FIT BRIEF MEN L/XL) misc^1 Each as needed.^Disp: 100 Each^Rfl: 11 Blood Pressure Monitor kit^1 Kit once daily. Please measure patient for correct size.^Disp: 1 Kit^Rfl: 0 LORazepam (ATIVAN) 0.5 mg^Take 1-2 tablets by mouth three times a day as needed for up to 30 days.^Disp: 30 tablet^Rfl: 0 amLODIPine (NORVASC) 10 mg tablet^Take 0.5 tablets by mouth twice daily. Take 1/2 tablet twice daily^Disp: 30 tablet^Rfl: 5 fluticasone (FLONASE) 50 mcg/actuation nasal spray^Use 1 Almont in each nostril twice daily. Rinse mouth after use.^Disp: 16 g^Rfl: 11 SOCIAL HISTORY: Social History Tobacco Use Smoking status: Former Packs/day: 2.00 Years: 45.00 Additional pack years: 0.00 Total pack years: 90.00 Types: Cigarettes Quit date: 07/08/2016 Years since quittin.4 Smokeless tobacco: Never Tobacco comments: 07/08/2016 Vaping Use Vaping Use: Never used Substance Use Topics Alcohol use: No Drug use: Never FAMILY HISTORY: FAMILY HISTORY Problem Relation Age of Onset Heart Mother CO in her 70s, pacemaker Diabetes Mother Stroke Father other (AAA) Father other (CAD) Brother Hypertension Brother PHYSICAL EXAMINATION: Vital Signs: BP 127/58 Pulse (!) 45 Resp 18 Wt 85.2 kg (187 lb 14.4 oz) SpO2 95% BMI 27.75 kg/m PHYSICAL EXAM: General appearance: pleasant, in wheelchair Mental status: alert, helps with history since he has expressive aphasia Skin: No visible rashes on exposed skin Neuro: Right sided hemiplegia Patch left eye IMPRESSION/PLAN: G47.33 DARON (obstructive sleep apnea) (primary encounter diagnosis) Z78.9 Intolerance of continuous positive airway pressure (CPAP) ventilation G25.81 RLS (restless legs syndrome) Afshin Zee is a 68 year old male with overall mild DARON (using CMS criteria) (or moderate using AASM criteria). He has RLS, low iron stores. Hx CPAP intolerance. Interested in Inspire. PMH of stroke,right hemiplegia, expressive aphagia, HLD, HTN, CAD, emphysema (O2 6LPM at night), atrial fibrillation, CKD, anxiety. Ferritin was less than 75 when last checked which can contribute to RLS symptoms, he is on iron. Update labs today for RLS. We discussed his split night study done in 2021 at [facility]--overall DARON is mild per CMS criteria. They are interested in updating the study. We discussed Inspire. - Polysomnogram (PSG) to reevaluate for obstructive sleep apnea. Pt preference is to have it at [facility], accompanies him. If AHI is at least 15 then we can refer to Sleep Surgery for eval for hypoglossal nerve stimulation (Inspire). - Discussed with the patient the possible diagnosis, causes, and conditions associated with obstructive sleep apnea. - Avoid driving when drowsy. Recommend that if you are dozing off while driving, that you do not drive until your sleepiness is appropriately treated. -Encouraged healthy lifestyle with adequate sleep ( 7-9 hours per night), diet and exercise. - Results are usually available within 7-10 business days. If you do not hear from us within 1-2 weeks after testing, please contact us directly. - Follow up visit TBD They would like to schedule appointment with Gen Neuro Dr Jean Marie Bazan APRN.OPERATIONS LABEL CLERK I spent a total of 45 minutes on the date of the service which included preparing to see the patient, [id number] patient care, completing clinical documentation, obtaining and/or reviewing separately obtained history, performing a medically appropriate examination, counseling and educating the pat ient/family/caregiver, and ordering medications, tests, or procedures. documented in this encounterProtest[facility]04-24-2024 Telephone encounter Note * Telephone Encounter - Kimo Adamson MA - 11/27/2023 10:19 AM EDT was notified patient going to respit in January while she is on trip. In appointment for december aware to bring fax number and will fax office note and orders for OT/PT/speech and give printed copies Kimo Adamson MA [facility]04-24-2024 Miscellaneous Notes* Telephone Encounter - Kimo Adamson MA - 11/27/2023 10:19 AM EDT was notified patient going to respit in January while she is on trip. In appointment for december aware to bring fax number and will fax office note and orders for OT/PT/speech and give printed copies Kimo Adamson MA * Telephone Encounter - Jaci Arroyo MD - 11/26/2023 5:02 PM EDT Please notify patient's that his labs look OK; follow up next month as planned Jaci Arroyo MD documented in this encounterProtest[facility]04-23-2024 Telephone encounter Note * Telephone Encounter - Jaci Arroyo MD - 11/26/2023 5:02 PM EDT Please notify patient's that his labs look OK; follow up next month as planned Jaci Arroyo MD [facility]04-19-2024 Miscellaneous Notes* Telephone Encounter - Jaci Arroyo MD - 11/22/2023 10:09 AM EDT OK to refill as ordered Jaci Arroyo MD * Telephone Encounter - Kassandra Okeefe RN - 11/22/2023 9:10 AM EDT Pt's Eli calling in for prescription refill on pt's Lorazepam. (last filled per computer 06/2023 for 30 days but pt has been in a group home so did not need the meds). She is requestingto have 90 day supply again with refills. Last OV 09/27/23 Next OV reschedule to 12/30 per 's request. also asking about lab orders. Per epic, pt was to have in Sep prior to that appt which was a 3month f/u. Eli states pt was in the group home at that time which is probably why they missed getting the labs done. Lab orders will outdate prior to next appt. New orders pended and aware of new date and that pt needs to be fasting 10-12 hours prior. Call her back only if any problems with above. documented in this encounterProtestant Hospital04-02-2024 Miscellaneous Notes* Telephone Encounter - Rachel Buckley MA - 11/05/2023 9:26 AM EDT Call to Eli and notified her that orders have been faxed to [facility] as requested, verbalized understanding. Rachel Buckley MA * Telephone Encounter - Rachel Buckley MA - 11/04/2023 5:54 PM EDT Will call pt's on 11/05/23 to notify her that orders will be faxed at that time. Rachel Buckley MA * Telephone Encounter - Jaci Arroyo MD - 11/04/2023 5:37 PM EDT Orders filed and printed Jaci Arroyo MD * Telephone Encounter - Therese Paz LPN - 11/04/2023 3:48 PM EDT called and she is requesting orders for OT and Speech Therapy. This will be done at [facility] and orders will need to be faxed there. Please advise Eli when this has been done. Therese Paz LPN documented in this encounterProtestant Hospital03-25-2024 Miscellaneous Notes* Telephone Encounter - Jaci Arroyo MD - 10/28/2023 1:40 PM EDT OK to refill as ordered Jaci Arroyo MD * Telephone Encounter - Alvin Nick LPN - 10/28/2023 10:37 AM EDT Patient has been identified by name and date of : Yes Patient phones for refill(s): Requested Prescriptions Pending Prescriptions Disp Refills metoprolol tartrate, short acting, (LOPRESSOR) 25 mg tablet [Pharmacy Med Name: METOPROLOL TART 25MG TAB 25 Tablet] 30 tablet 10 Sig: TAKE 1/2 TABLET BY MOUTH TWICE DAILY. HOLD IF HEART RATE IS LESS THAN 60 Date of last office visit in primary care: 07/08/2023 Date of next office visit in primary care: 03/02/2024 Please advise. Thank you. Alvin Nick LPN. documented in this encounterProtestant Hospital03-08-2024 Miscellaneous Notes* Telephone Encounter - Mariano Beckman APRN.CNP - 10/11/2023 3:08 PM EST Noted. Mariano Beckman APRN.ESTELLA * Telephone Encounter - Kassandra Okeefe RN - 10/11/2023 2:00 PM EST Jessie CABRERA from [facility] calling as she was supposed to see pt today for a reevaluation for PT. She has attempted to contact the patient 3 times with no answer. Asking to postpone til next week. Please call her only if this is a problem. documented in this encounterProtestant Hospital03-01-2024 Miscellaneous Notes* Telephone Encounter - Kassandra Okeefe RN - 10/04/2023 10:39 AM EST Pt's Eli calling and states she is returning a call to the sleep med dept. No note found butpt has an appt on 12/15 at 330 with Dena Bazan. Pt's notified. States she already had that on the calendar but glad for the call. documented in this encounterProtestant Hospital02-27-2024 History of Present illness Narrative* Deanne Cruz Shar, DO - 10/01/2023 4:10 PM EST Images from the original note were not included. Heart , Vascular and Thoracic [place] DEPARTMENT OF VASCULAR SURGERY OUTPATIENT VISIT DATE October 01, 2023 OUTPATIENT VISIT TYPE ESTABLISHED SERVICE DATE: 10/01/2023 SERVICE TIME: 4:10 PM PRIMARY CARE PHYSICIAN: Jaci Arroyo MD HISTORY OF PRESENT ILLNESS: Mr. Zee is a 68 year old male who presents today for a vascular surgery follow-up visit on carotid artery duplex. No new neurologic deficits. He has right sided paralysis secondary to stroke in 2017. He has a history of left ICA occlusion and left subclavian artery stenting in 2017. He broke his right leg in late July. He is recovering from fracture. He has expressive aphasia secondary to stroke PAST MEDICAL HISTORY Diagnosis Date Acute cerebral infarction (HCC) left LEANN (acute kidney injury) (HCC) Anemia Aneurysm (HCC) Anxiety state Atrial fibrillation (HCC) 11/2016 Balanitis CAD (coronary artery disease) Carotid stenosis COPD (chronic obstructive pulmonary disease) (HCC) Dysphasia Emphysema lung (HCC) History of blood transfusion 03/2023 Hypertension Hypoxia 03/2023 DARON (obstructive sleep apnea) PVD (peripheral vascular disease) ([facility]) Respiratory failure (HCC) hypoxic-ventilator dependent Stroke (cerebrum) (HCC) Tobacco abuse PAST SURGICAL HISTORY Procedure Laterality Date ANKLE SURGERY HX Right 08/07/2023 Dr. Kim. Right ankle ORIF due to fracture CABG CONSULT 10/30/2016 multi vessel COLONOSCOPY SCREENING 04/10/2023 EGD W/O BRS SPEC VARICIES INJ 04/11/2023 EGD W/O BRSH SPEC VARICIES INJ 04/10/2023 HEART CATHETERIZATION 09/17/2016 PAST SURGICAL HISTORY OF 2017 Aneurysm and stent surgery related to stroke TRACHEOSTOMY HX SOCIAL HISTORY Social History Tobacco Use Smoking status: Former Packs/day: 2.00 Years: 45.00 Additional pack years: 0.00 Total pack years: 90.00 Types: Cigarettes Quit date: 07/08/2016 Years since quittin.2 Smokeless tobacco: Never Tobacco comments: 07/08/2016 Vaping Use Vaping Use: Never used Substance Use Topics Alcohol use: No Drug use: Never MEDICATIONS: busPIRone (BUSPAR) 15 mg tablet^Take 1 tablet by mouth three times a day.^Disp: 90 tablet^Rfl: 5 clopidogrel (PLAVIX) 75 mg tablet^75 mg two times a day.^Disp: ^Rfl: acetaminophen (TYLENOL EXTRA STRENGTH) 500 mg tablet^Take 2 tablets by mouth three times a day as needed for pain.^Disp: ^Rfl: zinc oxide 20 % ointment^Apply to affected area as needed.^Disp: ^Rfl: sildenafil (VIAGRA) 100 mg tablet^Take 1 tablet by mouth once daily as needed. Take 30-60 minutes before sexual activity.^Disp: 9 tablet^Rfl: 5 tiotropium-olodaterol (STIOLTO RESPIMAT) 2.5-2.5 mcg/actuation^Inhale 2 Puffs as instructed once daily.^Disp: 1 Each^Rfl: 11 FEROSUL 325 mg (65 mg iron) tablet^take 1 tablet by mouth once daily^Disp: 30 tablet^Rfl: 4 traZODone (DESYREL) 100 mg tablet^Take 1 tablet by mouth daily at bedtime.^Disp: 30 tablet^Rfl: 11 albuterol (PROVENTIL) 2.5 mg /3 mL (0.083 %) nebulizer solution^Use 3 mL via nebulizer every 4 hours as needed for wheezing/shortness of breath. Use over 5- 15minutes.^Disp: 360 mL^Rfl: 3 albuterol HFA (PROVENTIL HFA, VENTOLIN HFA) 90 mcg/actuation inhaler^Inhale 2 Puffs as instructed every 4 hours as needed.^Disp: 3 Each^Rfl: 3 apixaban (ELIQUIS) 5 mg tab(s)^TAKE ONE (1) TABLET BY MOUTH TWICE DAILY^Disp: ^Rfl: MELATONIN ORAL^Take by mouth daily at bedtime.^Disp: ^Rfl: LORazepam (ATIVAN) 0.5 mg^Take 1-2 tablets by mouth three times a day as needed for up to 30 days.^Disp: 30 tablet^Rfl: 0 baclofen 10 mg tablet^TAKE 1/2 TABLET BY MOUTH THREE TIMES A DAY^Disp: 45 tablet^Rfl: 11 aspirin, enteric coated (ASPIRIN, ENTERIC COATED) 81 mg EC tablet^Take 81 mg by mouth once daily.^Disp: ^Rfl: amLODIPine (NORVASC) 10 mg tablet^Take 0.5 tablets by mouth twice daily. Take 1/2 tablet twice daily^Disp: 30 tablet^Rfl: 5 multivitamin tablet^Take 1 tablet by mouth once daily.^Disp: 90 tablet^Rfl: 3 fluticasone (FLONASE) 50 mcg/actuation nasal spray^Use 1 Almont in each nostril twice daily. Rinse mouth after use.^Disp: 16 g^Rfl: 11 potassium chloride (K-TAB) 10 mEq tablet^Take 2 tablets by mouth three times daily.^Disp: 540 tablet^Rfl: 3 ezetimibe (ZETIA) 10 mg tablet^Take 1 tablet by mouth once daily.^Disp: 90 tablet^Rfl: 3 escitalopram oxalate (LEXAPRO) 20 mg tablet^TAKE 1 TABLET BY MOUTH ONCE DAILY^Disp: 30 tablet^Rfl: 10 atorvastatin (LIPITOR) 40 mg tablet^TAKE 1 TABLET BY MOUTH ONCE DAILY^Disp: 30 tablet^Rfl: 10 famotidine (PEPCID) 20 mg tablet^TAKE 1 TABLET BY MOUTH AT BEDTIME NEEDED^Disp: 30 tablet^Rfl: 10 amiodarone (PACERONE) 100 mg tablet^TAKE 1 TABLET BY MOUTH ONCE DAILY *DO NOT TAKE IF HEART RATE ISLESS THAN 40*^Disp: 30 tablet^Rfl: 10 losartan (COZAAR) 25 mg tablet^take 1 tablet by mouth once daily^Disp: 90 tablet^Rfl: 3 metoprolol tartrate, short acting, (LOPRESSOR) 25 mg tablet^Take 0.5 tablets by mouth twice daily. Hold if heart rate is less than 60^Disp: 90 tablet^Rfl: 3 Blood Pressure Monitor kit^1 application twice daily. Measure patient for correct size. Patient needs cuff for left arm readings.^Disp: 1 Kit^Rfl: 0 COMPOUNDED PRESCRIPTION^Articulating AFO foot brace for right leg. Send to [employer]. Dx: I63.9^Disp: 1 Device^Rfl: 0 COMPOUNDED PRESCRIPTION^EMBER WALKER DX I63.9 weight 162 #^Disp: 1 Each^Rfl: 0 Diaper,Brief, Adult,Disposable (DEPEND REAL FIT BRIEF MEN L/XL) misc^1 Each as needed.^Disp: 100 Each^Rfl: 11 Blood Pressure Monitor kit^1 Kit once daily. Please measure patient for correct size.^Disp: 1 Kit^Rfl: 0 ALLERGIES: ALLERGIES Allergen Reactions Doxycycline GI Upset GI upset (stomach ache/cramping/diarrhea) and splotchy face Sulfate Salt Hives Zpak [Azithromycin] Hives Lisinopril Swelling Lip swelling after starting lisinopril. PHYSICAL EXAM: BP 121/55 (BP Site: Left Arm, BP Position: Sitting, BP Cuff Size: Regular Adult) Pulse (!) 56 SpO2 93% Gen- no distress Neuro- right side weakness Diagnostic tests reviewed for today's visit: Most recent labs Most recent imaging Carotid Duplex RIGHT SIDE Common carotid artery: Plaque visualized without evidence of hemodynamically significant stenosis. Internal carotid artery: 40-59% stenosis. Vertebral artery: Patent and antegrade flow noted. Subclavian artery: Plaque visualized without evidence of hemodynamically significant stenosis. LEFT SIDE Common carotid artery: Plaque visualized without evidence of hemodynamically significant stenosis. Internal carotid artery: Occluded. External carotid artery: Patent. Vertebral artery: Patent and antegrade flow noted. Subclavian artery: Patent. IMPRESSION: Mr. Zee is a 68 year old male with history of stroke, carotid artery stenosis . PLAN and RECOMMENDATIONS: Reviewed imaging with patient and family Recommend repeat imaging in one year Continue current medications SIGNATURE: Deanne Cruz DO PATIENT NAME: Afshin Zee DATE: October 01, 2023 TIME: 4:10 PM documented in this encounterProtestant Hospital02-27-2024 Miscellaneous Notes* Telephone Encounter - Christina Ozuna MA - 10/01/2023 2:58 PM EST Unable to reach patient's spouse Eli. Left message on identified VM with PCP note below. Christina Ozuna MA * Telephone Encounter - Jaci Arroyo MD - 10/01/2023 2:51 PM EST I would suggest increasing Buspar to 15 mg tid and see if thi scalms him down some Jaci Arroyo MD * Telephone Encounter - Therese Paz LPN - 10/01/2023 10:15 AM EST calling to let you know pt is having increase episode of yelling, screaming and grabbing her. is asking a question that maybe he has been on his medications so long that they are not working. Pt reports pt does fine with the aide that comes in, she is very good with him. gets a small break when she is there. checking into a respite care at [place] (not sure what the new name is). reports needs a break. Before doing this she wants to try a change in medication first. reports pt was just seen on 09-27-23. Please advise . Therese Paz LPN documented in this encounterProtestant Hospital02-23-2024 History of Present illness Narrative* Jaci Arroyo MD - 09/27/2023 2:20 PM EST Chief Complaint Patient presents with: Follow Up HPI Afshin Zee is a 68 year old male who presents here today for [facility] follow up. Here with , Eli. Pt was d/c from group home 09/11/23. He was there temporarily while Eli recovered from having a toe nail removed but took longer than expected to heal. Has an advanced directive. HM: Depression screening: denies feeling depressed or hopeless. Depression screening tool completedand reviewed. Based on score and interview, patient is not at risk for depression. Screening tool discussed with patient, and I recommended no further intervention at this time No bowel, Gi, or urinary issues. Hx of rectal mass. Following with Dr. Sandoval. Had surgery on 07/18/23. Scheduled for Colonoscopy in December with Dr. Patten. ED: Has used Cialis in the past but this didn't seem to give him a full erection. He is very discouraged and upset about not being able to perform. Anemia: Takes Ferosul 325 mg once daily. GERD : Pt taking Pepcid 20 mg daily prn for reflux symptoms. Pt suffered a bimalleolar fx of right ankle on 07/26/23 and required surgery and therapy. Surgery was completed by [facility]. He is out of the boot now and is just using a brace again.Still walking with a cane. No more falls since. He was getting OT and PT while in the group home.Would not do ST because he was only there for his ankle. Hx of CAD, Afib and HTN. Follows with Dr. Quintero. Denies any chest pain, sob or dizziness. Pt on current regimen of Eliquis 5 mg 1 tab po bid, Amlodipine 10 mg 0.5 tab po bid, ASA 81 mg daily, Potassium 10 meq 2 tabs po TID, Pacerone 100 mg 1 tab po once daily, Losartan 25 mg once daily and Lopressor 25 mg 0.5 tab po bid. CAD/Lipid/CVA: On current regimen of Zetia 10 mg once daily, Eliquis 5 mg bid and Lipitor 40 mg once daily. Follows with Dr. Cruz, Vascular. Anxiety/Moods/Insomnia: On current regimen of Ativan 0.5 mg 1-2 tab po TID, Trazodone 100 mg at bedtime and Buspar 10 mg 1 tab po TID. Pulm: Follows with Pulmonary, Dr. Mcgrath for emphysema. Is working with Neuro Dena Bazan to possibly get the Inspire device for DARON. They are trying otget insurance to cover it but if the insurance doesn't cover it [facility]. Past medical history, appointments, medications, allergies reviewed. Previous Medical History PAST MEDICAL HISTORY Diagnosis Date Acute cerebral infarction (HCC) left LEANN (acute kidney injury) (HCC) Anemia Aneurysm (HCC) Anxiety state Atrial fibrillation (HCC) 11/2016 Balanitis CAD (coronary artery disease) Carotid stenosis COPD (chronic obstructive pulmonary disease) (HCC) Dysphasia Emphysema lung (HCC) History of blood transfusion 03/2023 Hypertension Hypoxia 03/2023 DARON (obstructive sleep apnea) PVD (peripheral vascular disease) (HCC) Respiratory failure (HCC) hypoxic-ventilator dependent Stroke (cerebrum) (HCC) Tobacco abuse Previous Surgical History PAST SURGICAL HISTORY Procedure Laterality Date ANKLE SURGERY HX Right 08/07/2023 Dr. Kim. Right ankle ORIF due to fracture CABG CONSULT 10/30/2016 multi vessel COLONOSCOPY SCREENING 04/10/2023 EGD W/O RUST SPEC VARICIES INJ 04/11/2023 EGD W/O RUST SPEC VARICIES INJ 04/10/2023 HEART CATHETERIZATION 09/17/2016 PAST SURGICAL HISTORY OF 2017 Aneurysm and stent surgery related to stroke TRACHEOSTOMY HX Family History FAMILY HISTORY Problem Relation Age of Onset Heart Mother CO in her 70s, pacemaker Diabetes Mother Stroke Father other (AAA) Father other (CAD) Brother Hypertension Brother Patient Allergies ALLERGIES Allergen Reactions Doxycycline GI Upset GI upset (stomach ache/cramping/diarrhea) and splotchy face Sulfate Salt Hives Zpak [Azithromycin] Hives Lisinopril Swelling Lip swelling after starting lisinopril. Current Medications Current Outpatient Medications on File Prior to Visit Medication Sig tiotropium-olodaterol (STIOLTO RESPIMAT) 2.5-2.5 mcg/actuation Inhale 2 Puffs as instructed once daily. FEROSUL 325 mg (65 mg iron) tablet take 1 tablet by mouth once daily traZODone (DESYREL) 100 mg tablet Take 1 tablet by mouth daily at bedtime. albuterol (PROVENTIL) 2.5 mg /3 mL (0.083 %) nebulizer solution Use 3 mL via nebulizer every 4 hours as needed for wheezing/shortness of breath. Use over 5-15minutes. albuterol HFA (PROVENTIL HFA, VENTOLIN HFA) 90 mcg/actuation inhaler Inhale 2 Puffs as instructed every 4 hours as needed. apixaban (ELIQUIS) 5 mg tab(s) TAKE ONE (1) TABLET BY MOUTH TWICE DAILY MELATONIN ORAL Take by mouth daily at bedtime. LORazepam (ATIVAN) 0.5 mg Take 1-2 tablets by mouth three times a day as needed for up to 30 days. baclofen 10 mg tablet TAKE 1/2 TABLET BY MOUTH THREE TIMES A DAY aspirin, enteric coated (ASPIRIN, ENTERIC COATED) 81 mg EC tablet Take 81 mg by mouth once daily. amLODIPine (NORVASC) 10 mg tablet Take 0.5 tablets by mouth twice daily. Take 1/2 tablet twice daily multivitamin tablet Take 1 tablet by mouth once daily. fluticasone (FLONASE) 50 mcg/actuation nasal spray Use 1 [place] in each nostril twice daily. Rinse mouth after use. busPIRone (BUSPAR) 10 mg tablet Take 1 tablet by mouth three times daily. potassium chloride (K-TAB) 10 mEq tablet Take 2 tablets by mouth three times daily. ezetimibe (ZETIA) 10 mg tablet Take 1 tablet by mouth once daily. escitalopram oxalate (LEXAPRO) 20 mg tablet TAKE 1 TABLET BY MOUTH ONCE DAILY atorvastatin (LIPITOR) 40 mg tablet TAKE 1 TABLET BY MOUTH ONCE DAILY famotidine (PEPCID) 20 mg tablet TAKE 1 TABLET BY MOUTH AT BEDTIME NEEDED amiodarone (PACERONE) 100 mg tablet TAKE 1 TABLET BY MOUTH ONCE DAILY *DO NOT TAKE IF HEART RATE ISLESS THAN 40* losartan (COZAAR) 25 mg tablet take 1 tablet by mouth once daily metoprolol tartrate, short acting, (LOPRESSOR) 25 mg tablet Take 0.5 tablets by mouth twice daily. Hold if heart rate is less than 60 miconazole (MONISTAT-DERM,LANCE) 2 % cream Apply to affected area twice daily. Blood Pressure Monitor kit 1 application twice daily. Measure patient for correct size. Patient needs cuff for left arm readings. COMPOUNDED PRESCRIPTION Articulating AFO foot brace for right leg. Send to [employer]. Dx: I63.9 COMPOUNDED PRESCRIPTION EMBER WALKER DX I63.9 weight 162 # Diaper,Brief, Adult,Disposable (DEPEND REAL FIT BRIEF MEN L/XL) misc 1 Each as needed. Blood Pressure Monitor kit 1 Kit once daily. Please measure patient for correct size. Current Facility-Administered Medications on File Prior to Visit Medication perflutren lipid microspheres 1.3 mL in NaCl (PF) 0.9% 10 mL injection (DEFINITY) sodium chloride 0.9 % (flush) 10 mL (BD POSIFLUSH) Social History Social History Tobacco Use Smoking status: Former Packs/day: 2.00 Years: 45.00 Additional pack years: 0.00 Total pack years: 90.00 Types: Cigarettes Quit date: 07/08/2016 Years since quittin.2 Smokeless tobacco: Never Tobacco comments: 07/08/2016 Vaping Use Vaping Use: Never used Substance Use Topics Alcohol use: No Drug use: Never EXAM: BP 112/68 Pulse 70 Resp 18 Wt 85.1 kg (187 lb 9.6 oz) BMI 27.70 kg/m General Appearance: Well appearing, alert, in no acute distress, well-hydrated, well nourished., Overweight, and Walker. Lungs: Lungs clear to auscultation. No wheezing, rhonchi, rales.. Heart: RRR without murmur, gallop, or rubs. No ectopy. Health Maintenance List Abdominal Aortic Aneurysm Screening Never done Hepatitis C Screening Never done Alpha-1 Antitrypsin Deficiency Screening Never done Lung Cancer Screening Never done Shingrix Vaccine(1 of 2) Never done Prostate Cancer Screening Discussion due on 06/03/2015 Advance Directive Discussion Never done Depression Assessment due on 08/05/2023 LDL Cholesterol due on 06/06/2024 Annual PCP Team Chronic Disease Visit due on 06/11/2024 Serum Creatinine due on 07/15/2024 Hemoglobin/Hematocrit due on 07/15/2024 BP Controlled (<130/80) due on 09/16/2024 Diabetes Screening due on 07/15/2026 Lipid Screening due on 06/06/2028 Colorectal Cancer Screening due on 06/19/2028 DTaP,Tdap,Td Vaccine(2 - Td or Tdap) due on 05/10/2031 Spirometry Completed Influenza Vaccine Completed RSV Vaccine Completed Covid-19 Vaccine Completed Pneumococcal Vaccine: 65+ Completed Data reviewed None ASSESSMENT/PLAN: 1. 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) - ICD9: 434.11, ICD10: I63.132 (primary diagnosis) Continue current medications. Continue with OT, PT, ST 2. Right hemiplegia (HCC) - ICD9: 342.90, ICD10: G81.91 Continue with OT, PT, ST 3. Chronic insomnia - ICD9: 780.52, ICD10: F51.04 Controlled Continue current medications. 4. Mixed hyperlipidemia - ICD9: 272.2, ICD10: E78.2 - Control undetermined, due for labs - Continue current medications - Counseled on healthy diet and regular exercise - Discussed need for and benefit of weight loss. BMI 27.70 kg/(m^2) 5. Essential hypertension - ICD9: 401.9, ICD10: I10 - Controlled - Continue current medications - Recommend home blood pressure monitoring, to bring results to next visit - Encouraged sodium restriction, DASH or Mediterranean diet - Recommend regular aerobic exercise - Discussed need for and benefit of weight loss. BMI 27.70 kg/(m^2) 6. Coronary artery disease involving [place] coronary artery of [place] heart without angina pectoris- ICD9: 414.01, ICD10: I25.10 Continue current medications. Continue with Dr. [facility] 7. Paroxysmal atrial fibrillation (HCC) - ICD9: 427.31, ICD10: I48.0 Continue current medications. 8. Centrilobular emphysema (HCC) - ICD9: 492.8, ICD10: J43.2 Continue current medications. Continue with Pulm 9. Erectile dysfunction, unspecified erectile dysfunction type - ICD9: 607.84, ICD10: N52.9 Start Viagra 100 mg prn 10. Anxiety - ICD9: 300.00, ICD10: F41.9 Controlled Continue current medications. 11. Stage 3 chronic kidney disease, unspecified whether stage 3a or 3b CKD (HCC) - ICD9: 585.3, ICD10: N18.30 Continue current medications. Monitor with labs Follow up in 3 months. Will call with lab results. I agree with the Chief Complaint, ROS, and Past Histories independently gathered by the clinical technical support technician and the remaining scribed note accurately describes my personal service to the patient. Medical Decision Making: Problems: Moderate: 2+ stable chronic illnesses Risk: Moderate: Drug management Medical Decision Making Level: 4 - Moderate Jaci Arroyo MD The documentation for this note was completed by Monica Cruz Ma acting as scribe for Jaci Arroyo MD. September 27, 2023 2:23 PM. Monica Cruz Ma documented in this encounterProtestant Hospital02-20-2024 Miscellaneous Notes* Telephone Encounter - Raiza John RN - 09/24/2023 12:02 PM EST (Eli) calls back and request below request be disregarded. [facility] doesn't have PT/OT currently that comes to the area. Patient to continue with [facility] PT, OT, ST for now. Raiza John RN * Telephone Encounter - Dimple Agustin LPN - 09/24/2023 11:20 AM EST Pt's is calling to request orders for PT, OT, and Speech to go to [facility]. Pt currently is[facility] to [facility] for OT and PT but said they can't do Speech because orders from [place] were for rehab for broken ankle. reports pt had [facility] before and they worked really well with pt. spoke to Shannon in the intake dept with [facility] and was advised it should not be a problem tohave all three. Speech due to stroke. is asking for orders to go to [facility], Attn: Shannon, fax: [phone]. reports pt has an appt with Ortho surgeon on 09/26 and appt with pcp 09/27. Dimple Agustin LPN documented in this encounterProtestant Hospital02-16-2024 Miscellaneous Notes* Telephone Encounter - Kimo Mcgrath MD - 09/20/2023 4:00 PM EST Spoke with regarding oximetry testing. Test states on 4 L but she states that he is usually on6 L. 11 hours recording time 6 hours and 38 minutes with saturation less than 88% Lowest saturation 72% MARGARITA events 502 Has known DARON but intolerant of multiple mask interfaces due to late term effects from stroke He may be a candidate for Inspire. Instructed to keep him on 6 L at night and I will refer to Sleep Medicine. documented in this encounterProtestant Hospital02-15-2024 Miscellaneous Notes* Telephone Encounter - Jaci Arroyo MD - 09/19/2023 3:07 PM EST Noted Jaci Arroyo MD * Telephone Encounter - Jayde Laughlin RN - 09/19/2023 1:36 PM EST Valentine VALLECILLO calling from [facility] to report plan of care for patient and occupational therapy will visit patient 1 times a week for 1 week (for evaluation) and 1 times a week for 1 week for week of . This was a delay of care due to waiting on insurance No call back needed Jayde Laughlin RN documented in this encounterProtestant Hospital02-12-2024 Miscellaneous Notes* Telephone Encounter - Monica Cruz Ma - 09/16/2023 3:58 PM EST [facility] HH notified. Monica Cruz Ma * Telephone Encounter - Jaci Arroyo MD - 09/16/2023 3:54 PM EST Noted; he has been on both of these medications and his QT has been OK, so OK to stay on them. Jaci Arroyo MD * Telephone Encounter - Dixie Naranjo RN - 09/16/2023 3:27 PM EST Kylie, nurse @ [facility] calling to let PCP know she was reconciling patient medications and found flag for possible drug/drug interaction between Escitalopram and Amiodarone. She said the detail of the possible interaction was not stated in the computer generated flag. Dixie Naranjo RN documented in this encounterProtestant Hospital02-12-2024 Instructions* Patient Instructions* Kimo Mcgrath MD - 09/16/2023 2:36 PM EST Repeat oximetry on 4 Liters at night documented in this encounterProtestant Hospital02-12-2024 History of Present illness Narrative* Kimo Mcgrath MD - 09/16/2023 2:15 PM EST Images from the original note were not included. . [facility] [place] Note Patient name: Afshin Zee PCP: Jaci Arroyo MD CC: Routine follow-up HPI: Afshin Zee 68 year old male former 45 pack year smoker, quitting in 2016 with PMH significantfor AF (on amiodarone), CVA with late effects, CAD s/p CABG, PAD, HTN, CKD, emphysema and nocturnaloxygen requirement. Required trach in past following stroke. Current inhaled therapy consists of Stiolto Respimat and as needed albuterol. Lung cancer screening done at [facility] 05/22/2023 shows emphysema, focal areas of scarring, and no suspicious lesions, read as lung RADS 2. Recent history notable for ankle fracture right s/p ORIF 08/07/2023 and large tubulovillous adenoma. Patient denies shortness of breath, cough, sputum production. No need for his albuterol. No recent hospitalization for his unde rlying lung disease or upper respiratory infection. DME: [employer] 4 L at night. Unable to tolerate CPAP DATA: Collected 07/18/2023 12:06 PM FINAL DIAGNOSIS A. Colon, sigmoid, polyp, endoscopic submucosal dissection: - Fragments of tubulovillous adenoma with thermal artifact. Nocturnal Oximetry, 2L, 05/08/2023 Recording interval: 9:39:17 High pulse: 71 Low pulse: 40 Highest spO2: 98% Lowest spO2: 82% Time with spO2 < 88%: 2:04:42 Repeat oximetry on 4 L was not performed Imaging / Diagnostic Studies: Lung Cancer screening [facility] 05/2023 reviewed which shows emphysema and RUL and lingular area of scar Read as LungRads 2, annual screening recommended PAST MEDICAL HISTORY Diagnosis Date Acute cerebral infarction (HCC) left LEANN (acute kidney injury) (HCC) Anemia Aneurysm (HCC) Anxiety state Atrial fibrillation (HCC) 11/2016 Balanitis CAD (coronary artery disease) Carotid stenosis COPD (chronic obstructive pulmonary disease) (HCC) Dysphasia Emphysema lung (HCC) History of blood transfusion 03/2023 Hypertension Hypoxia 03/2023 DARON (obstructive sleep apnea) PVD (peripheral vascular disease) (HCC) Respiratory failure (HCC) hypoxic-ventilator dependent Stroke (cerebrum) ([facility]) Tobacco abuse ALLERGIES Allergen Reactions Doxycycline GI Upset GI upset (stomach ache/cramping/diarrhea) and splotchy face Sulfate Salt Hives Zpak [Azithromycin] Hives Lisinopril Swelling Lip swelling after starting lisinopril. FEROSUL 325 mg (65 mg iron) tablet^take 1 tablet by mouth once daily^Disp: 30 tablet^Rfl: 4 traZODone (DESYREL) 100 mg tablet^Take 1 tablet by mouth daily at bedtime.^Disp: 30 tablet^Rfl: 11 albuterol HFA (PROVENTIL HFA, VENTOLIN HFA) 90 mcg/actuation inhaler^Inhale 2 Puffs as instructed every 4 hours as needed.^Disp: 3 Each^Rfl: 3 apixaban (ELIQUIS) 5 mg tab(s)^TAKE ONE (1) TABLET BY MOUTH TWICE DAILY^Disp: ^Rfl: baclofen 10 mg tablet^TAKE 1/2 TABLET BY MOUTH THREE TIMES A DAY^Disp: 45 tablet^Rfl: 11 aspirin, enteric coated (ASPIRIN, ENTERIC COATED) 81 mg EC tablet^Take 81 mg by mouth once daily.^Disp: ^Rfl: amLODIPine (NORVASC) 10 mg tablet^Take 0.5 tablets by mouth twice daily. Take 1/2 tablet twice daily^Disp: 30 tablet^Rfl: 5 multivitamin tablet^Take 1 tablet by mouth once daily.^Disp: 90 tablet^Rfl: 3 fluticasone (FLONASE) 50 mcg/actuation nasal spray^Use 1 [place] in each nostril twice daily. Rinse mouth after use.^Disp: 16 g^Rfl: 11 potassium chloride (K-TAB) 10 mEq tablet^Take 2 tablets by mouth three times daily.^Disp: 540 tablet^Rfl: 3 ezetimibe (ZETIA) 10 mg tablet^Take 1 tablet by mouth once daily.^Disp: 90 tablet^Rfl: 3 escitalopram oxalate (LEXAPRO) 20 mg tablet^TAKE 1 TABLET BY MOUTH ONCE DAILY^Disp: 30 tablet^Rfl: 10 atorvastatin (LIPITOR) 40 mg tablet^TAKE 1 TABLET BY MOUTH ONCE DAILY^Disp: 30 tablet^Rfl: 10 famotidine (PEPCID) 20 mg tablet^TAKE 1 TABLET BY MOUTH AT BEDTIME NEEDED^Disp: 30 tablet^Rfl: 10 amiodarone (PACERONE) 100 mg tablet^TAKE 1 TABLET BY MOUTH ONCE DAILY *DO NOT TAKE IF HEART RATE ISLESS THAN 40*^Disp: 30 tablet^Rfl: 10 losartan (COZAAR) 25 mg tablet^take 1 tablet by mouth once daily^Disp: 90 tablet^Rfl: 3 metoprolol tartrate, short acting, (LOPRESSOR) 25 mg tablet^Take 0.5 tablets by mouth twice daily. Hold if heart rate is less than 60^Disp: 90 tablet^Rfl: 3 tiotropium-olodaterol (STIOLTO RESPIMAT) 2.5-2.5 mcg/actuation^Inhale 2 Puffs as instructed once daily.^Disp: 1 Each^Rfl: 11 albuterol (PROVENTIL) 2.5 mg /3 mL (0.083 %) nebulizer solution^Use 3 mL via nebulizer every 4 hours as needed for wheezing/shortness of breath. Use over 5- 15minutes.^Disp: 360 mL^Rfl: 3 MELATONIN ORAL^Take by mouth daily at bedtime.^Disp: ^Rfl: LORazepam (ATIVAN) 0.5 mg^Take 1-2 tablets by mouth three times a day as needed for up to 30 days.^Disp: 30 tablet^Rfl: 0 busPIRone (BUSPAR) 10 mg tablet^Take 1 tablet by mouth three times daily.^Disp: 270 tablet^Rfl: 3 miconazole (MONISTAT-DERM,LANCE) 2 % cream^Apply to affected area twice daily.^Disp: ^Rfl: Blood Pressure Monitor kit^1 application twice daily. Measure patient for correct size. Patient needs cuff for left arm readings.^Disp: 1 Kit^Rfl: 0 COMPOUNDED PRESCRIPTION^Articulating AFO foot brace for right leg. Send to [employer]. Dx: I63.9^Disp: 1 Device^Rfl: 0 COMPOUNDED PRESCRIPTION^EMBER WALKER DX I63.9 weight 162 #^Disp: 1 Each^Rfl: 0 Diaper,Brief, Adult,Disposable (DEPEND REAL FIT BRIEF MEN L/XL) misc^1 Each as needed.^Disp: 100 Each^Rfl: 11 Blood Pressure Monitor kit^1 Kit once daily. Please measure patient for correct size.^Disp: 1 Kit^Rfl: 0 Social History Tobacco Use Smoking status: Former Packs/day: 2.00 Years: 45.00 Additional pack years: 0.00 Total pack years: 90.00 Types: Cigarettes Quit date: 07/08/2016 Years since quittin.1 Smokeless tobacco: Never Tobacco comments: 07/08/2016 Vaping Use Vaping Use: Never used Substance Use Topics Alcohol use: No Drug use: Never FAMILY HISTORY Problem Relation Age of Onset Heart Mother CO in her 70s, pacemaker Diabetes Mother Stroke Father other (AAA) Father other (CAD) Brother Hypertension Brother PAST SURGICAL HISTORY Procedure Laterality Date ANKLE SURGERY HX Right 08/07/2023 Dr. Kim. Right ankle ORIF due to fracture CABG CONSULT 10/30/2016 multi vessel COLONOSCOPY SCREENING 04/10/2023 EGD W/O BRSH SPEC VARICIES INJ 04/11/2023 EGD W/O BRSH SPEC VARICIES INJ 04/10/2023 HEART CATHETERIZATION 09/17/2016 PAST SURGICAL HISTORY OF 2017 Aneurysm and stent surgery related to stroke TRACHEOSTOMY HX PMH, Social history, family history and surgical history reviewed and updated in EMR REVIEW OF SYSTEMS: CONSTITUTIONAL: No fevers, chills, nightsweats, unintended weight loss CARDIOVASCULAR: No chest pain, dyspnea, palpitations, edema. PULM: See HPI. No wheezing GI: No dysphagia/odynophagia, changes in stool habits. Recent removal of tubulovillous adenoma NEURO: Late effects from stroke MUSC-SKEL: Right ankle fracture INTEGUMENTARY: No new skin changes or rashes PHYSICAL EXAMINATION: BP 118/68, pulse 70, RR 17, SpO2 93% on room air General Appearance: Age-appropriate male, NAD. Skin: Skin color, texture, turgor normal, no suspicious rashes or lesions. Head: Normocephalic, no masses, lesions, tenderness or abnormalities. Eyes: Sclera, conjunctiva normal. Oropharynx: Edentulous. Neck: No JVD, no masses, no adenopathy. Lungs: Not labored, normal to percussion, no wheezes or crackles. Heart: Regular rate and rhythm, no murmur or gallops. Extremities: Right boot, no left edema, no clubbing. Neuro: Right upper extremity paralysis Assessment/Plan: 1. Centrilobular emphysema -He will continue on Stiolto Respimat with as needed albuterol. Refilled prescriptions -Continue abstinence from tobacco 2. Former cigarette smoker -Former 72-amjy-clqu smoker with sequelae of emphysema -Continued abstinence -Continued surveillance for lung cancer. Due for next CT at [facility] May 2024 3. Nocturnal hypoxemia -Patient intolerant of CPAP -Patient want to wear nocturnal oxygen but is compliant with usage -Repeat overnight oximetry on 4 L -Denies daytime fatigue Kimo Mcgrath MD [facility] [place] documented in this encounterProtestant Hospital02-09-2024 Miscellaneous Notes* Telephone Encounter - Jaci Arroyo MD - 09/13/2023 3:03 PM EST Noted Jaci Arroyo MD * Telephone Encounter - Milan Brunson RN - 09/13/2023 12:29 PM EST Cathy Siu- [facility]- phoned to let pcp know, pt was discharged from [facility] to home on 09-10-23. documented in this encounterProtestant Hospital02-06-2024 Miscellaneous Notes* Telephone Encounter - Monica Cruz Ma - 09/10/2023 9:18 AM EST Jessie notified. Monica Cruz Ma * Telephone Encounter - Jaci Arroyo MD - 09/09/2023 7:30 PM EST I agree and am willing to follow for home health orders Jaci Arroyo MD * Telephone Encounter - Dixie Naranjo RN - 09/09/2023 3:21 PM EST Jessie [facility] Intake calling to let PCP know patient is being discharged from [facility] today post anklesurgery rehabilitation. He has home health orders for nursing, PT/OT. Asking if PCP agrees and willing to follow home health orders? Her ph # [phone]. Dixie Naranjo RN documented in this encounterProtestant Hospital01-05-2024 Discharge summary Author Davin Kim [facility] August 09, 2023 3:52pm Note Date/Time August 09, 2023 3: 52pm [facility] Medical Records Department [address] [place] [address] Transfer to [facility] MR#: [id number] Acct: [id number] Name: AFSHIN ZEE Rep #:[id number] : 1955 68 From: Davin Kim MD PCP: Dr. Jaci Arroyo MD Status:JOSEFINA DENNEY Certification of patient admission REQUIRED AT TIME OF ADMISSION. I CERTIFY THAT POST-HOSPITAL F SERVICES ARE REQUIRED TO BE GIVEN ON AN IN-PATIENT BASIS BECAUSE OF THE ABOVE NAMED PATIENT'S NEED FOR PENITENTIARY CARE ON A CONTINUING BASIS FOR THE CONDITION(S) FOR WHICH HE/SHE WAS RECEIVING IN-PATIENT HOSPITAL SERVICES PRIOR TO HIS/HER TRANSFER TO [facility]. 08/09/23 1552<Electronically signed by Davin Kim MD> Diet Diet Order/Speech Therapy: 08/07/23 15:51 Diet: Regular - General Is pt able to select menu?: Yes Diet Comments: no straws Wound(s) RT ANKLE: Wound Type: Surgical Incision Therapies Weight Bearing: Partial weight bearing Physical Therapy: Eval and Treat Occupational Therapy: Eval and Treat Problem/Diagnosis (1) Ankle fracture: Status: Acute Code(s): S82.899A - Other fracture of unspecified lower leg, initial encounter for closedfracture Plan: POD 2 ankle ORIF. pending placement and mobilization. CCM. Plan partial WB Allergies/Procedures Done in Hospital Allergies azithromycin [From Zithromax Z-Sacha] Allergy (Intermediate, Verified 08/07/23 10:41) Hives lisinopril Allergy (Intermediate, Verified 08/07/23 10:41) Hives and diarrhea Sulfa (Sulfonamide Antibiotics) Allergy (Verified 08/07/23 10:41) Hives Type of Care/Length of Stay Estimated LOS: Convalescent Care Less Than 30 days Type of Care Needed: Skilled Rehab Potential: Good Prognosis: Good Additional Orders/Day of Discharge Day of Discharge: 08/09/23 Follow Up Care Please Follow Up With: Davin Kim MD When: 2 weeks Discharge Plan Admission Admit Date/Time: 08/07/23 13:27 Attending Provider: Davin Kim Primary Care Provider: Jaci Arroyo Consulting Providers: Felecia Burns; Davin Kim; Dov Marin Discharge Orders/Prescriptions Prescriptions: No Action Complete Multivitamin tablet 1 tab PO DAILY potassium chloride 10 mEq tablet extended release 20 meq PO TID Qty: 90 12RF albuterol sulfate [Ventolin HFA] 90 mcg/actuation HFA aerosol inhaler 2 inh inhalation Q4H PRN (Reason: shortness of breath or wheezing) Qty: 18 6RF Stiolto Respimat 2.5-2.5 mcg/actuation mist 2 puff inhalation DAILY famotidine 20 MG tablet 20 mg PO QHS PRN PRN (Reason: Gastric Reflux) Patient Comments: reduce acid baclofen 10 MG tablet 5 mg PO TID 0RF Patient Comments: muscle relaxant ezetimibe 10 mg tablet 10 mg PO DAILY Patient Comments: TAKE 1 TABLET BY MOUTH ONCE DAILY escitalopram oxalate 20 mg Tablet 20 mg PO DAILY menthol-zinc oxide [Calmoseptine] 0.44-20.6 % Ointment 1 applic topical TID PRN (Reason: Diaper Rash) Qty: 0 0RF Protocol: *Topical Application Instructions APPLICATION INSTRUCTIONS: scrotum/luci-rectal area prn amiodarone 100 mg tablet 100 mg PO DAILY Patient Comments: TAKE 1 TABLET BY MOUTH ONCE DAILY. DO NOT TAKE IF HEART RATE IS LESS THAN 40. trazodone 50 mg tablet 100 mg PO QHS Patient Comments: take 1 tablet by mouth at bedtime buspirone 10 mg tablet 10 mg PO TID Patient Comments: TAKE 1 TABLET BY MOUTH THREE TIMES DAILY miconazole nitrate 2 % Cream 1 applic topical BID 14 Days Qty: 15 0RF Protocol: *Topical Application Instructions APPLICATION INSTRUCTIONS: Apply to erythema on glans of penis BID amlodipine 5 mg Tablet 5 mg PO BID Eliquis 5 mg tablet 5 mg PO BID Patient Comments: TAKE ONE (1) TABLET BY MOUTH TWICE DAILY clopidogrel [Plavix] 75 mg tablet 75 mg PO DAILY albuterol sulfate 2.5 mg /3 mL (0.083 %) solution for nebulization 2.5 mg continuous nebulization Q6H PRN (Reason: shortness of breath or wheezing) Patient Comments: INHALE 1 VIAL VIA NEBULIZER EVERY 4 HOURS NEEDED FOR WHEEZING OR SHORTNESS OF BREATH *USE OVER 5-15 MINUTES* ferrous sulfate [FeroSul] 325 mg (65 mg iron) tablet 325 mg PO DAILY Patient Comments: take 1 tablet by mouth once daily losartan 25 mg tablet 25 mg PO DAILY Patient Comments: take 1 tablet by mouth once daily aspirin 81 mg capsule 81 mg PO DAILY atorvastatin 40 mg tablet 40 mg PO DAILY Patient Comments: TAKE 1 TABLET BY MOUTH ONCE DAILY lorazepam 0.5 mg tablet 0.5 mg PO Q8H PRN (Reason: agitation) Patient Comments: take 1 to 2 tablets by mouth three times a day if needed metoprolol tartrate 25 mg tablet 12.5 mg PO BID Rx Instructions: hold if heart rate is less than 60 (DME) IV poll See Rx Instructions .Route .MEDSUPPLY Qty: 1 0RF Rx Instructions: As directed fluticasone propionate [Flonase Allergy Relief] 50 mcg/actuation spray,suspension 2 spray INTRANASAL DAILY Qty: 16 6RF Referrals / Follow Up: Jaci Arroyo MD [Primary Care Provider] - Davin Kim MD [Med Staff - Active Staff] - Disposition Disposition (needs filled in before D/C Order can be placed): [facility] 08/09/23 7949 <Electronically signed by Davin Kim MD> Cosigner Signature (if applicable): CC: Dr. Dov Marin DO; Dr. Jaci Arroyo MD; Dr. Felecia Burns MD; Dr. Davin Kim MD ~ [facility] Work Phone: 1(491) 530-504201-05-2024 Discharge summary Author Davin Kim [facility] August 09, 2023 3:25pm Note Date/Time August 09, 2023 3: 25pm [facility] Medical Records Department [address] [place] [address] Discharge Summary 08/09/23 1524 MR#: [id number] Acct: [id number] Name: AFSHIN ZEE Rep #:[id number] : 1955 68 From: Davin Kim MD PCP: Dr. Jaci Arroyo MD Status:AD M [facility] Prov[facility] Date of Admission: 08/07/23 Primary Care Physician: Dr. Jaci Arroyo MD Consultations 08/07/23 13:17 Consult: Hospitalist Routine Consulting Provider: Felecia Burns Reason for Consult: post op ankle surgery admission, multiple med hx EMERGENT Consult: No MD Notified: Yes Date Notified: 08/07/23 Time Notified: 13:45 Method of Notification: Text Reason For Visit: Right ankle open reduction internal Diagnosis Discharge Diagnosis (1) Ankle fracture: Status: Acute Code(s): S82.899A - Other fracture of unspecified lower leg, initial encounter for closedfracture Plan: POD 2 ankle ORIF. pending placement and mobilization. CCM. Medications at Discharge Home Medications famotidine 20 mg tablet 20 mg PO QHS PRN PRN Gastric Reflux 12/21/16 baclofen 10 mg tablet 5 mg (1/2 x 10 mg) PO TID 02/05/17 multivitamin,[id number] (Complete Multivitamin tablet) 1 tab PO DAILY vitamin 12/04/18 potassium chloride 10 mEq tablet,extended release 20 meq (2 x 10 mEq) PO TID potassium #90 tabs 04/19/20 ezetimibe 10 mg tablet 10 mg PO DAILY 04/22/21 escitalopram oxalate 20 mg tablet 20 mg PO DAILY antidepressant 06/11/21 menthol 0.44 %-zinc oxide 20.6 % topical ointment (Calmoseptine) 1 applic topical TID PRN Diaper Rash #0 grams 06/17/21 amiodarone 100 mg tablet 100 mg PO DAILY HEART 07/11/21 albuterol sulfate 90 mcg/actuation aerosol inhaler (Ventolin HFA) 2 inh inhalation Q4H PRN shortness of breath or wheezing #18 grams 05/29/22 IV poll #1 ea 08/07/22 buspirone 10 mg tablet 10 mg PO TID ANXIETY 08/16/22 trazodone 50 mg tablet 100 mg PO QHS DEPRESSION 08/16/22 miconazole nitrate 2 % topical cream 1 applic topical BID 14 days #15 grams 08/17/22 amlodipine 5 mg tablet 5 mg PO BID 11/11/22 apixaban 5 mg tablet (Eliquis) 5 mg PO BID 11/11/22 clopidogrel 75 mg tablet (Plavix) 75 mg PO DAILY anti platelet 11/11/22 fluticasone propionate 50 mcg/actuation nasal spray,suspension (Flonase Allergy Relief) 2 spray intranasal DAILY #16 grams 03/04/23 tiotropium 2.5 mcg-olodaterol 2.5 mcg/actuation mist for inhalation (Stiolto Respimat) 2 puff inhalation DAILY 05/29/23 albuterol sulfate 2.5 mg/3 mL (0.083 %) solution for nebulization 2.5 mg continuous nebulization Q6H PRN shortness of breath or wheezing 08/02/23 aspirin 81 mg capsule 81 mg PO DAILY 08/02/23 atorvastatin 40 mg tablet 40 mg PO DAILY 08/02/23 ferrous sulfate 325 mg (65 mg iron) tablet (FeroSul) 325 mg PO DAILY 08/02/23 lorazepam 0.5 mg tablet 0.5 mg PO Q8H PRN agitation 08/02/23 losartan 25 mg tablet 25 mg PO DAILY 08/02/23 metoprolol tartrate 25 mg tablet 12.5 mg PO BID 08/02/23 Weight / BMI Weight Weight: 188 lb 14.978 oz Body Mass Index (BMI) 27.1 ABG / Lab / Microbiology Data 08/07/23 11:16 08/07/23 11:16 Microbiology: Microbiology 08/08/23 12:50 Urine, Random Urine Culture - Preliminary Culture exhibits no growth. D/C Instructions Discharge Diet: No restrictions Weight Bearing Status: Partial weight bearing Call your doctor if your incision/area has: Continuous Slow Oozing, Sudden Increased Bleeding, Increased Pain/ Swelling, Increased Redness, Foul Smelling Discharge and Swelling at the incision site Remove Dressing in: leave in place till F/U Please Follow Up With: Davin Kim MD When: 2 weeks Meaningful Use Info Meaningful Use Diagnoses (Choose all that apply): None applicable Discharge Plan Admission Admit Date/Time: 08/07/23 13:27 Attending Provider: Davin Kim Primary Care Provider: Jaci Arroyo Consulting Providers: Felecia Burns; Davin Kim; Dov Marin Discharge Orders/Prescriptions Prescriptions: No Action Complete Multivitamin tablet 1 tab PO DAILY potassium chloride 10 mEq tablet extended release 20 meq PO TID Qty: 90 12RF albuterol sulfate [Ventolin HFA] 90 mcg/actuation HFA aerosol inhaler 2 inh inhalation Q4H PRN (Reason: shortness of breath or wheezing) Qty: 18 6RF Stiolto Respimat 2.5-2.5 mcg/actuation mist 2 puff inhalation DAILY famotidine 20 MG tablet 20 mg PO QHS PRN PRN (Reason: Gastric Reflux) Patient Comments: reduce acid baclofen 10 MG tablet 5 mg PO TID 0RF Patient Comments: muscle relaxant ezetimibe 10 mg tablet 10 mg PO DAILY Patient Comments: TAKE 1 TABLET BY MOUTH ONCE DAILY escitalopram oxalate 20 mg Tablet 20 mg PO DAILY menthol-zinc oxide [Calmoseptine] 0.44-20.6 % Ointment 1 applic topical TID PRN (Reason: Diaper Rash) Qty: 0 0RF Protocol: *Topical Application Instructions APPLICATION INSTRUCTIONS: scrotum/luci-rectal area prn amiodarone 100 mg tablet 100 mg PO DAILY Patient Comments: TAKE 1 TABLET BY MOUTH ONCE DAILY. DO NOT TAKE IF HEART RATE IS LESS THAN 40. trazodone 50 mg tablet 100 mg PO QHS Patient Comments: take 1 tablet by mouth at bedtime buspirone 10 mg tablet 10 mg PO TID Patient Comments: TAKE 1 TABLET BY MOUTH THREE TIMES DAILY miconazole nitrate 2 % Cream 1 applic topical BID 14 Days Qty: 15 0RF Protocol: *Topical Application Instructions APPLICATION INSTRUCTIONS: Apply to erythema on glans of penis BID amlodipine 5 mg Tablet 5 mg PO BID Eliquis 5 mg tablet 5 mg PO BID Patient Comments: TAKE ONE (1) TABLET BY MOUTH TWICE DAILY clopidogrel [Plavix] 75 mg tablet 75 mg PO DAILY albuterol sulfate 2.5 mg /3 mL (0.083 %) solution for nebulization 2.5 mg continuous nebulization Q6H PRN (Reason: shortness of breath or wheezing) Patient Comments: INHALE 1 VIAL VIA NEBULIZER EVERY 4 HOURS NEEDED FOR WHEEZING OR SHORTNESS OF BREATH *USE OVER 5-15 MINUTES* ferrous sulfate [FeroSul] 325 mg (65 mg iron) tablet 325 mg PO DAILY Patient Comments: take 1 tablet by mouth once daily losartan 25 mg tablet 25 mg PO DAILY Patient Comments: take 1 tablet by mouth once daily aspirin 81 mg capsule 81 mg PO DAILY atorvastatin 40 mg tablet 40 mg PO DAILY Patient Comments: TAKE 1 TABLET BY MOUTH ONCE DAILY lorazepam 0.5 mg tablet 0.5 mg PO Q8H PRN (Reason: agitation) Patient Comments: take 1 to 2 tablets by mouth three times a day if needed metoprolol tartrate 25 mg tablet 12.5 mg PO BID Rx Instructions: hold if heart rate is less than 60 (DME) IV poll See Rx Instructions .Route .MEDSUPPLY Qty: 1 0RF Rx Instructions: As directed fluticasone propionate [Flonase Allergy Relief] 50 mcg/actuation spray,suspension 2 spray INTRANASAL DAILY Qty: 16 6RF Referrals / Follow Up: Jaci Arroyo MD [Primary Care Provider] - Davin Kim MD [Med Staff - Active Staff] - Disposition Disposition (needs filled in before D/C Order can be placed): [facility] 08/09/23 5976 <Electronically signed by Davin Kim MD> Cosigner Signature (if applicable): CC: Dr. Jaci Arroyo MD; Dr. Davin Kim MD~ Signed [facility] Work Phone: 1(840) 574-784401-05-2024 Progress note Author Davin Kim [facility] August 09, 2023 1:30pm Note Date/Time August 09, 2023 1: 30pm [facility] Medical Records Department [address] [place] [address] Progress Note - Orthopedic 08/09/23 1329 MR#: [id number] Acct: [id number] Name: AFSHIN ZEE Rep #:[id number] : 1955 68 From: Davin Kim MD PCP: Dr. Jaci Arroyo MD Status:AD M JUMANA Location: [facility] [place] [id number] Subjective Subjective pod 2 ankle ORIF. patient replies yes yes as usual. no concerns noted. Objective Data Objective Data Vital Signs: Vital Signs Temp Pulse Resp BP Pulse Ox O2 Del Method O2 Flow Rate 98.2 F 59 L 18 128/53 H 92 Nasal Cannula 2 08/09/23 11:45 08/09/23 13:27 08/09/23 13:27 08/09/23 11:45 08/09/23 11:45 08/09/23 11:45 08/09/23 11:45 Oxygen Flow Rate (L/min) 2 Oxygen Delivery Method Nasal Cannula Weight: 188 lb 14.978 oz Body Mass Index (BMI) 27.1 Intake & Output: Intake and Output for Last 24 Hours 08/07/23 08/08/23 08/09/23 23:59 23:59 23:59 Intake Total 224.5 / 224.5 300 / 300 275 / 275 Output Total 1200 / 1200 225 / 225 Balance 224.5 / 224.5 -900 / -900 50 / 50 Lab / Micro Data 08/07/23 11:16 08/07/23 11:16 Labs: Laboratory Results - last 24 hr 08/08/23 12:50: Urine RBC 0 SEEN, Urine WBC 0 SEEN, Ur Squamous Epith Cells 0 SEEN, Urine Bacteria 0 SEEN, Urine Mucus 0 SEEN Micro: Microbiology 08/08/23 12:50 Urine, Random Urine Culture - Preliminary Culture exhibits no growth. Physical Exam Const alert, no apparent distress and well nourished Extremity normal capillary refill and no calf tenderness Extremity Narrative: foot warm, well perfused, no skin breakdown or bleeding through dressing, wiggles toes and picks up the leg easily. Assessment & Plan Assessment/Plan (1) Ankle fracture: PLAN: POD 2 ankle ORIF. pending placement and mobilization. [facility]. 08/09/23 1330 <Electronically signed by Davin Kim MD> Cosigner Signature (if applicable): CC: ~ Signed [facility] Work Phone: 1(933) 641-991101-04-2024 Progress note Author Dov Marin [facility] August 08, 2023 2:57pm Note Date/Time August 08, 2023 2: 57pm [facility] Medical Records Department [address] [place] [address] Progress Note - Hospitalist 08/08/23 1453 MR#: [id number] Acct: [id number] Name: AFSHIN ZEE Rep #:[id number] : 1955 68 From: Dov Marin DO PCP: Dr. Jaci Arroyo MD Status:AD M JUMANA Location: [facility]3 [id number] Subjective Subjective Awake but unable to answer questions. Objective Data Objective Data Vital Signs: Vital Signs Temp Pulse Resp BP Pulse Ox O2 Del Method O2 Flow Rate 36.6 C 62 18 144/70 H 94 Nasal Cannula 2 08/08/23 09:03 08/08/23 09:03 08/08/23 09:03 08/08/23 09:03 08/08/23 09:03 08/08/23 09:03 08/08/23 09:03 Oxygen Flow Rate (L/min) 2 Oxygen Delivery Method Nasal Cannula Weight: 85.7 kg Body Mass Index (BMI) 27.1 Intake & Output: Intake and Output for Last 24 Hours 08/06/23 08/07/23 08/08/23 23:59 23:59 23:59 Intake Total 110 / 110 Output Total 800 / 800 Balance 110 / 110 -800 / -800 Lab / Micro Data 08/07/23 11:16 08/07/23 11:16 Labs: Laboratory Results - last 24 hr 08/08/23 12:50: Urine Color Yellow, Urine Clarity Clear, Urine pH 5.0, Ur Specific Lawrence 1.025, Urine Protein 15 H, Urine Glucose (UA) Normal, Urine Ketones Negative, Urine Occult Blood Negative, Urine Nitrite Negative, Urine Bilirubin Negative, Urine Urobilinogen Normal, Ur Leukocyte Esterase Negative, Urine RBC 0 SEEN, Urine WBC 0 SEEN, Ur Squamous Epith Cells 0 SEEN, Urine Bacteria 0 SEEN, Urine Mucus 0 SEEN Radiography Diagnostic Testing: Radiology Impression Ankle X-Ray 08/07/23 11:55 IMPRESSION: Fluoroscopically guided procedure for ORIF through the ankle. For details please see operative report. Electronically Signed: Nancy Manjarrez MD at 16:56 EST , Physical Exam Const no apparent distress Constitutional Narrative: pleasantly confused. Says yes, yes, yes over and over. HEENT head/scalp atraumatic and moist oral mucous membranes Assessment & Plan Assessment/Plan (1) Dysuria: PLAN: urine is cloudy, but on UA, the urine is concentrated. No sign of infection. Encourage increase oral fluid intake. No additional work up. (2) Constipation: PLAN: Add Dulolax and Colace PLAN: Plan Ankle fracture: per orthopaedics Medically stable for discharge. Hospitalist service will sign off. Call with questions. DW pt's at bedside. Charges/Coding Visit Charges Inpatient E&M: 92868 Subs Hosp L1 08/08/23 3347 <Electronically signed by Dov Marin DO> Cosigner Signature (if applicable): CC: ~ Signed [facility] Work Phone: 1(466) 341-796001-04-2024 Progress note Author Davin Kim [facility] August 08, 2023 12:05pm Note Date/Time August 08, 2023 12 :05pm [facility] Medical Records Department [address] [facility] [place] [address] Progress Note - Orthopedic 08/08/23 1204 MR#: [id number] Acct: [id number] Name: AFSHIN ZEE Rep #:[id number] : 1955 68 From: Davin Kim MD PCP: Dr. Jaci Arroyo MD Status:AD M [facility] Location: [place] [address] Subjective Subjective patient in pain per nursing staff after block wore off, last percocet 9am, nursestates cap refill good and no other concerns. conversation today at 12 noon. Objective Data Objective Data Vital Signs: Vital Signs Temp Pulse Resp BP Pulse Ox O2 Del Method O2 Flow Rate 97.9 F 62 18 144/70 H 94 Nasal Cannula 2 08/08/23 09:03 08/08/23 09:03 08/08/23 09:03 08/08/23 09:03 08/08/23 09:03 08/08/23 09:03 08/08/23 09:03 Oxygen Flow Rate (L/min) 2 Oxygen Delivery Method Nasal Cannula Weight: 188 lb 14.978 oz Body Mass Index (BMI) 27.1 Intake & Output: Intake and Output for Last 24 Hours 08/06/23 08/07/23 08/08/23 23:59 23:59 23:59 Intake Total 110 / 110 Output Total 800 / 800 Balance 110 / 110 -800 / -800 Lab / Micro Data 08/07/23 11:16 01/03/24 11:16 Radiography Diagnostic Testing: Radiology Impression Ankle X-Ray 08/07/23 11:55 IMPRESSION: Fluoroscopically guided procedure for ORIF through the ankle. For details please see operative report. Electronically Signed: Nancy Manjarrez MD at 16:56 EST Reading Location ID and State: [address] [place] [address] , Service support , Assessment & Plan Assessment/Plan (1) Ankle fracture: PLAN: Plan for pain rest ice elevate, dc percocet, try scheduled tylenol and prnoxycodone. 08/08/23 1205 <Electronically signed by Davin Kim MD> Cosigner Signature (if applicable): CC: ~ Signed [facility] Work Phone: 1(686) 771-371401-03-2024 Progress note Author Felecia Burns [facility] August 07, 2023 7:46pm Note Date/Time August 07, 2023 7: 46pm [facility] Medical Records Department [address] [place] [address] Progress Note - Hospitalist 08/07/231942 MR#: [id number] Acct: [id number] Name: AFSHIN ZEE Rep #:[id number] : 1955 68 From: Felecia Burns MD PCP: Dr. Jaci Arroyo MD Status:[facility] Location: [place] [address] Reason for Visit Reason for Visit: Diagnoses Displaced bimalleolar fracture of right lower leg, initial encounter for closed fracture (08/07/23) Encounter for other preprocedural examination (08/07/23) Subjective Subjective 68-year-old male with history of atrial fibrillation, expressive aphasia as a result of a previous stroke, CVA, hypertension, CAD s/p CABG, DARON on hs O2 presented to [facility] 08/07/2023 for a right ankle ORIF with . He underwent uneventful surgery and hospitalist contacted for postop medical management. Patient evaluated at bedside with present, patient with chronic expressive aphasia due to previous CVA but did not indicate any distress and resting comfortably. No new specific complaints or concerns voiced Objective Data Objective Data Vital Signs: Vital Signs Temp Pulse Resp BP Pulse Ox O2 Del Method O2 Flow Rate 98.6 F 83 18 123/66 H 96 Nasal Cannula 4 08/07/23 18:08 08/07/23 19:03 08/07/23 19:03 08/07/23 18:08 08/07/23 19:03 08/07/23 19:03 08/07/23 19:03 Oxygen Flow Rate (L/min) 4 Oxygen Delivery Method Nasal Cannula Weight: 85.7 kg Body Mass Index (BMI) 27.1 Intake & Output: Intake and Output for Last 24 Hours 08/05/23 08/06/23 08/07/23 23:59 23:59 23:59 Intake Total 110 / 110 Balance 110 / 110 Lab / Micro Data 08/07/23 11:16 08/07/23 11:16 Labs: Laboratory Results - last 24 hr 08/07/23 11:16: WBC 12.5 H, RBC 4.17 L, Hgb 11.7 L, Hct 37.1 L, MCV 89.0, MCH 28.1, MCHC 31.5 L, RDW Std Deviation 46.1 H, RDW Coeff of Makayla 14.3, Plt Count 405, MPV 10.0, Sodium 141, Potassium 4.5, Chloride 108 H, Carbon Dioxide 25.0, Anion Gap 8, BUN 16, Creatinine 1.34 H, Estim Creat Clear Calc 54.48, Est GFR (MDRD) Af Amer 68, Est GFR (MDRD) Non-Af 56 L, BUN/Creatinine Ratio 11.9, Glucose 86, Calcium 8.4 L Radiography Diagnostic Testing: Radiology Impression Ankle X-Ray 08/07/23 11:55 IMPRESSION: Fluoroscopically guided procedure for ORIF through the ankle. For details please see operative report. Electronically Signed: Nancy Manjarrez MD at 16:56 EST , Physical Exam Narrative General: Alert,no apparent distress HEENT: Atraumatic Eyes: Anicteric, normal conjunctiva Neck: Supple Respiratory: Clear to auscultation bilaterally, normal respiratory effort Cardiovascular: Regular rate GI: Soft, nontender, nondistended Musculoskeletal: Left ankle wrapped Neuro: Chronic expressive aphasia Skin: No rashes appreciated Psych: Cooperative Assessment & Plan Assessment/Plan (1) Ankle fracture: (2) Atherosclerosis of coronary artery without angina pectoris: QUALIFIERS: Coronary Disease-Associated Artery/Lesion type: nativeartery [place] vs. transplanted heart: [place] heart Qualified Code(s): I25.10 -Atherosclerotic heart disease of [place] coronary artery without angina pectoris (3) Carotid artery disease: QUALIFIERS: Laterality: unspecified laterality Qualified Code(s):I77.9 - Disorder of arteries and arterioles, unspecified (4) History of stroke: (5) HTN (hypertension): QUALIFIERS: Hypertension type: essential hypertension Qualified Code(s): I10 - Essential (primary) hypertension (6) Sleep apnea: QUALIFIERS: Sleep apnea type: central sleep apnea associated with underlying condition Qualified Code(s): G47.37 - Central sleep apnea in conditions classified elsewhere PLAN: Plan #Postop right ankle ORIF -On 08/07/[address] Kim -Management per ortho -PT/OT -Patient will likely need placement given baseline functional status -Per documentation patient to be nonweightbearing or partial weightbearing depending on need for transfers for 6 weeks #Hx CVA -Pt to resume eliquis tomorrow -Continue other home medications #Hx CAD s/p CABG -Continue home medications aspirin and eliquis #Hx afib -On amio and BB, continue -Resume AC tomorrow at timing discretion of ortho #Anxiety/depression -Continue home medications # DARON -Has not tolerated CPAP in the past so uses home O2 nightly, continue this #CKD IIIa -Appears to be at baseline -Continue supportive care #DVT ppx: Patient to resume Eliquis tomorrow Felecia Burns MD Time spent in the patient's overall evaluation,decision-making process, review of diagnostic data, adjustment of management, discussion with other providers, nursing nursing and ancillary staff involved in patient's care documentation, 40Minutes Charges/Coding Visit Charges Inpatient E&M: 43697 Subs Hosp L2 08/07/231945 <Electronically signed by Felecia Burns MD> Cosigner Signature (if applicable): CC: ~ Signed [facility] Work Phone: 1([phone]) 806-245801-03-2024 History and physical note Author Davin Kim [facility] August 07, 2023 11:25am Note Date/Time August 07, 2023 11 :25am [facility] Medical Records Department [address] [place] [address] History & Physical Exam 08/07/23 1124 MR#: [id number] Acct: [id number] Name: AFSHIN ZEE Rep #:[id number] : 1955 68 From: Davin Kim MD PCP: Dr. Jaci Arroyo MD [place] [place] [address] HPI - General HPI Narrative AFSHIN ZEE, is a 68 M who presents for open reduction internal fixation right ankle. no changes to h and p. right ankle marked, mild-mod swelling. ok to proceed. rab and post op plan discussed to be admitted as patient has baseline poor function and weakness dt stroke. no further questions. MR#: [id number] Acct: [id number] Name: AFSHIN ZEE Rep #: [id number] : 1955 Provider: Dr. Davin Kim MD Age/Sex: 67/M Location: [facility] Status: Signed Intake Vital Signs 05/29/2306:07 Height 5 ft 10 in Weight: 185 lb BMI 26.5 BP 112/68 Blood Pressure Location Lt brachial Position Sitting Respiration 20 H Pulse 56 L Pulse Source Monitor Temp 97.2 F L Pulse Oximetry (%) 97 Oxygen Delivery Method room air Intake Visit Reasons: RIGHT FIBULA Accompanied by: Is patient in pain?: Yes Allergies azithromycin [From Zithromax Z-Sacha] Allergy (Intermediate, Verified 07/26/23 14:50) Hiveslisinopril Allergy (Intermediate, Verified 07/26/23 14:50) Hives and diarrheaSulfa (Sulfonamide Antibiotics) Allergy (Verified 07/26/23 14:50) Hives Medications famotidine 20 mg tablet 20 mg PO QHS PRN PRN Gastric Reflux 12/21/16 [History Confirmed 07/26/23] baclofen 10 mg tablet 5 mg (1/2 x 10 mg) PO TID 02/05/17 [Rx Confirmed 07/26/23] multivitamin,dw-gsxg-votalilo (Complete Multivitamin tablet) 1 tab PO DAILY vitamin 12/04/18 [History Confirmed 07/26/23] potassium chloride 10 mEq tablet,extended release 20 meq (2 x 10 mEq) PO TID potassium #90 tabs 04/19/20 [Rx Confirmed 07/26/23] ezetimibe 10 mg tablet 10 mg PO DAILY 04/22/21 [History Confirmed 07/26/23] escitalopram oxalate 20 mg tablet 20 mg PO DAILY antidepressant 06/11/21 [History Confirmed 07/26/23] menthol 0.44 %-zinc oxide 20.6 % topical ointment (Calmoseptine) 1 applic topical TID PRN Diaper Rash #0 grams 06/17/21 [Rx Confirmed 07/26/23] amiodarone 100 mg tablet 100 mg PO DAILY HEART 07/11/21 [History Confirmed 07/26/23] albuterol sulfate 90 mcg/actuation aerosol inhaler (Ventolin HFA) 2 inh inhalation Q4H PRN shortness of breath or wheezing #18 grams 05/29/22 [Rx Confirmed 07/26/23] IV poll #1 ea 08/07/22 [Rx Confirmed 07/26/23] buspirone 10 mg tablet 10 mg PO TID ANXIETY 08/16/22 [History Confirmed 07/26/23] trazodone 50 mg tablet 50 mg PO QHS DEPRESSION 08/16/22 [History Confirmed 07/26/23] miconazole nitrate 2 % topical cream 1 applic topical BID 14 days #15 grams 08/17/22 [Rx Confirmed 07/26/23] acetaminophen 500 mg tablet 1,000 mg PO Q6H PRN Pain 11/11/22 [History Confirmed 07/26/23] amlodipine 5 mg tablet 5 mg PO DAILY 11/11/22 [History Confirmed 07/26/23] apixaban 5 mg tablet (Eliquis) 5 mg PO BID 11/11/22 [History Confirmed 07/26/23] clopidogrel 75 mg tablet (Plavix) 75 mg PO DAILY anti platelet 11/11/22 [History Confirmed 07/26/23] hydrochlorothiazide 12.5 mg tablet 12.5 mg PO DAILY diuretic 11/11/22 [History Confirmed 07/26/23] metoprolol tartrate 25 mg tablet 25 mg PO BID 30 days #30 tabs 11/15/22 [Rx Confirmed 07/26/23] fluticasone propionate 50 mcg/actuation nasal spray,suspension (Flonase Allergy Relief) 2 spray intranasal DAILY #16 grams 03/04/23 [Rx Confirmed 07/26/23] tiotropium 2.5 mcg-olodaterol 2.5 mcg/actuation mist for inhalation (Stiolto Respimat) 2 puff inhalation DAILY 05/29/23 [History Confirmed 07/26/23] [facility] Medical History (Updated 07/26/23 @ 15:17 by Davin Kim MD) Anemia Aphasia as late effect of stroke Atherosclerosis of coronary artery without angina pectoris Bimalleolar fracture of right ankle Carotid artery disease Cerebral arterial aneurysm Chronic atrial fibrillation Confusion Debility Dysphagia History of stroke History of stroke HTN (hypertension) Hyperlipidemia Hypoxia Left acute arterial ischemic stroke, MCA (middle cerebral artery) (10/31/16) 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 Davin Kim MD 07/26/23 6863. Part of today?s visit was documented by [ ], acting as scribe. AFSHIN ZEE is a 67 year old M here today for R ankle fracture. here w his , patient has aphasia. had a stroke 7 years ago, uses a cane. lives with hiswife. normally has a brace on the right leg. eliquis for the stroke. another mild stroke 2015. Patient is here with his who is his power of real estate associate attorney. Patient is able to say yes and thank you. The patient had a fall at home twisted the ankle. Was seen and [facility] today at [facility].right LE weakness at baseline. Ortho Exam General General: Yes no acute distress Neurologic: Yes alert and Yes oriented x3 Psychologic: Yes reasonable and appropriate Right Foot/Ankle Skin/Wound: Yes CDI, Ecchymosis and Soft Tissue Swelling; No Erythema Exam: present tender to palpate - over fracture site, TTP Lateral Malleolus, TTPMedial Malleolus and TTP Deltoid Ligament; absent TTP Lisfranc Joint or TTP Peroneal Dorsiflexion 0-20: 0 degrees Plantar Flexion 0-40: 0 degrees Compartments: Compartments: soft Pulses: Dorsalis Pedis: 2 and Posterior Tibial: 2 ANKLE: wiggles toes only, cap refill under 3 seconds, no blisters, mild swelling. Supplemental Info XR 3 views of the right ankle reviewed today. Shows a bimalleolar ankle fracture. The mortise is well-maintained no obvious talar shift. no report, these on disc from [facility]. Coding Level of Care Code Off vis,new,level 4 Diagnoses Bimalleolar fracture of right ankle S82.841A Assessment and Plan Assessment and Plan (1) Bimalleolar fracture of right ankle: Status: Acute Plan: 67 m R ankle # bimalleolar... Patient is here with their power of real estate associate attorney who is deciding the healthcare decisions for the patient today. This is a closed unstable ankle fracture. The options would be nonsurgical here in a cast as wellas open reduction internal fixation. Pros and cons risks and benefits of each of these methods were discussed. Cast higher risk of instability malunion delayed union as well as possible for ulcers given the patient's baseline status. That being said surgery has risks as well higher risk of infection due to the patient's past medical history bleeding and other risks. Patient's power of real estate associate attorney would like to go ahead with open reduction internal fixation right ankle. Booked and consented for the surgery today we will arrange and sent a message to Lesley in the office with regards to getting cardiology clearance they work at the [facility] will have to stop the patient's Eliquis at least 2 days before surgery. For now I have encouraged thepatient to be nonweightbearing we will put the patient back in the arthrosis boot it seems to be stable and that and at least the patient can come out of that for showering and some self-care and to monitor of the skin typically I would put the patient in a below-knee 3 sided plaster Sav[place] or fiberglass splintbut I am a little bit worried about doing that in this patient. No obvious talar shift so I suspect this will be stable in the orthosis boot fornow. If the patient and the caregiver does not hear back by Saturday I asked them to call the office and we will arrange for a surgery ideally on August Patient and the healthcare proxy understood no further questions or concerns. Pros and cons risks and benefits were discussed with the patient including but not limited to infection, pain, stiffness, bleeding, damage to surrounding structures, neurovascular injury, recurrence or retear, failure or wear of hardware or fixation, instability, fracture, deep vein thrombosis and pulmonary embolism, anesthetic risks, , patient dissatisfaction, need for further surgery and other risks. Patient and proxy understood and wished to proceed with surgery, and signed the informed consent documentation. [facility] Medical History (Updated 08/02/23 @ 10:53 by Magdalena Albarran) Ambulates with cane Anemia Anxiety Aphasia as late effect of stroke Atherosclerosis of coronary artery without angina pectoris Bimalleolar fracture of right ankle Bruising Cardiology follow-up encounter Carotid artery disease Cerebral arterial aneurysm Chronic atrial fibrillation Confusion CPAP (continuous positive airway pressure) dependence Debility Dysphagia Easy bruising Former smoker Gastric reflux History of atrial fibrillation History of Clostridium difficile infection History of echocardiogram History of stroke History of stroke HTN (hypertension) Hyperlipidemia Hypoxia Left acute arterial ischemic stroke, MCA (middle cerebral artery) (10/31/16) longterm current use of amiodarone Lower resp. tract infection Mixed obstructive and restrictive ventilatory defect Respiratory failure Sepsis Smoker Stroke/cerebrovascular accident Wears dentures Wears glasses Home Medications famotidine 20 mg tablet 20 mg PO QHS PRN PRN Gastric Reflux 12/21/16 [History Last Taken 08/15/22] baclofen 10 mg tablet 5 mg (1/2 x 10 mg) PO TID 02/05/17 [Rx Last Taken 08/07/23 09:00] multivitamin,bf-tovi-skmgfdhz (Complete Multivitamin tablet) 1 tab PO DAILY vitamin 12/04/18 [History Last Taken 08/06/23] potassium chloride 10 mEq tablet,extended release 20 meq (2 x 10 mEq) PO TID potassium #90 tabs 04/19/20 [Rx Last Taken 08/06/23] ezetimibe 10 mg tablet 10 mg PO DAILY 04/22/21 [History Last Taken 08/06/23] escitalopram oxalate 20 mg tablet 20 mg PO DAILY antidepressant 06/11/21 [History Last Taken 08/06/23] menthol 0.44 %-zinc oxide 20.6 % topical ointment (Calmoseptine) 1 applic topical TID PRN Diaper Rash #0 grams 06/17/21 [Rx Last Taken Unknown] amiodarone 100 mg tablet 100 mg PO DAILY HEART 07/11/21 [History Last Taken 08/07/23 09:00] albuterol sulfate 90 mcg/actuation aerosol inhaler (Ventolin HFA) 2 inh inhalation Q4H PRN shortness of breath or wheezing #18 grams 05/29/22 [Rx Last Taken 08/07/23] IV poll #1 ea 08/07/22 [Rx Last Taken Unknown] buspirone 10 mg tablet 10 mg PO TID ANXIETY 08/16/22 [History Last Taken 08/07/23 09:00] trazodone 50 mg tablet 100 mg PO QHS DEPRESSION 08/16/22 [History Last Taken 08/06/23] miconazole nitrate 2 % topical cream 1 applic topical BID 14 days #15 grams 08/17/22 [Rx Last Taken Unknown] amlodipine 5 mg tablet 5 mg PO BID 11/11/22 [History Last Taken 08/07/23 09:00] apixaban 5 mg tablet (Eliquis) 5 mg PO BID 11/11/22 [History Last Taken 08/05/23] clopidogrel 75 mg tablet (Plavix) 75 mg PO DAILY anti platelet 11/11/22 [History Last Taken Unknown] fluticasone propionate 50 mcg/actuation nasal spray,suspension (Flonase Allergy Relief) 2 spray intranasal DAILY #16 grams 03/04/23 [Rx Last Taken Unknown] tiotropium 2.5 mcg-olodaterol 2.5 mcg/actuation mist for inhalation (Stiolto Respimat) 2 puff inhalation DAILY 05/29/23 [History Last Taken 08/06/23] albuterol sulfate 2.5 mg/3 mL (0.083 %) solution for nebulization 2.5 mg continuous nebulization Q6H PRN shortness of breath or wheezing 08/02/23 [History Last Taken Unknown] aspirin 81 mg capsule 81 mg PO DAILY 08/02/23 [History Last Taken 08/03/23] atorvastatin 40 mg tablet 40 mg PO DAILY 08/02/23 [History Last Taken 08/06/23] ferrous sulfate 325 mg (65 mg iron) tablet (FeroSul) 325 mg PO DAILY 08/02/23 [History Last Taken 08/06/23] lorazepam 0.5 mg tablet 0.5 mg PO Q8H PRN agitation 08/02/23 [History Last Taken Unknown] losartan 25 mg tablet 25 mg PO DAILY 08/02/23 [History Last Taken 08/07/23 09:00] metoprolol tartrate 25 mg tablet 12.5 mg PO BID 08/02/23 [History Last Taken 08/07/23 09:00] Allergy/AdvReac Type Severity Reaction Status Date / Time azithromycin Allergy Intermediate Hives Verified 08/07/23 10:41 [From Zithromax Z-Sacha] lisinopril Allergy Intermediate Hives and Verified 08/07/23 10:41 diarrhea Sulfa (Sulfonamide Allergy Hives Verified 08/07/23 10:41 Antibiotics) Family History Mother Diabetes Heart disease Father AAA (abdominal aortic aneurysm) Heart disease Surgical History (Updated 08/02/23 @ 10:53 by Magdalena Albarran) History of tracheostomy (11/07/16) 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 Social History household members: spouse Smoking Status: Former smoker how long ago did patient quit smokin years ago, 2ppd second hand exposure: Yes alcohol intake: never substance use type: does not use caffeine: No Vital Signs Vital Signs Vital Signs: 08/07/23 10:55 08/07/23 10:55 Temperature 98.1 F Temperature Source Temporal Pulse Rate 48 L Respiratory Rate 16 Respiratory Pattern Normal Blood Pressure 129/59 H Blood Pressure Mean 82 Blood Pressure Source Monitor Blood Pressure Position Semi-Fowlers Blood Pressure Location Left Arm Pulse Ox 94 Oxygen Delivery Method Room Air Weight Weight: 189 lb Body Mass Index (BMI) 27.1 Results Lab / Micro Data 08/07/23 11:16 08/07/23 11:16 08/07/23 1125 <Electronically signed by Davin Kim MD> Cosigner Signature (if applicable): CC: Dr. Jaci Arroyo MD; Dr. Davin Kim MD~ Signed [facility] Work Phone: [phone]) 477-672201-03-2024 Procedure [facility] 07-26-2023 Hospital Discharge instructions Patient Education 07/26/2023 12:53:26 Ankle Fracture Ankle Fracture You have an ankle fracture. This means that one or more of the bones that make up the ankle joint are broken. This often causes pain, swelling, and bruising. A fracture is treated with a splint, cast, or special boot. It will take about 4 to 6 weeks for thefracture to heal. Surgery may be needed to fix severe injuries. Home care You will be given a splint, cast, or boot to prevent movement at the ankle joint. Unless you were told otherwise, use crutches or a walker. Don t put weight on the injured leg until cleared by your healthcare provider to do so. Crutches and walkers can be rented at many pharmacies and surgical or orthopedic supply stores. Don t put weight on a splint. It will break. Keep your leg raised to reduce pain and swelling. When sleeping, place a pillow under the injured leg. When sitting, support the injured leg so it is often. This is very important during the first 48hours. Apply an ice pack over the injured area for no more than 15 to 20 minutes. Do this every 3 to 6 hours for the first 24 to 48 hours. Keep using ice packs 3 to 4 times a day for the next 2 to 3 days, then as needed to ease pain and swelling. To make an ice pack, put ice cubes in a plastic bag that seals at the top. Wrap the bag in a clean, thin towel or cloth. Never put ice or an ice pack directly on the skin. You can place the ice pack directly over the cast or splint. As the ice melts, be careful that the cast or splint doesn t get wet. Keep the cast, splint, or boot completely dry at all times. Bathe with your cast, splint, or boot out of the water, protected with [address] 1 bag outside of the other. Tape each bag with duct tape at the top end or use rubber bands. Water can still leak in. So it's best to keep the cast, splint, or boot away from water. If a boot or fiberglass cast or splint gets wet, dry it with a communications department chairperson on a cool setting. You may use [id number]-[id number] pain medicine to control pain, unless another pain medicine was prescribed. Talk with your provider before using these medicines if you have chronic liver or kidney disease or ever had a stomach ulcer or GI (gastrointestinal) bleeding. Follow-up care Follow up with your healthcare provider in 1 week, or as advised. This is to be sure the bone is healing correctly. If you were given a splint, it may be changed to a cast or boot at your follow-up visit. If X-rays were taken, you will be told of any new findings that may affect your care. When to seek medical advice Call your healthcare provider right away if any of these occur: The plaster cast or splint becomes wet or soft The fiberglass cast or splint stays wet for more than 24 hours There is increased tightness, sore areas, or pain under the cast or splint Your toes become swollen, cold, blue, numb, or tingly The cast or splint becomes loose The cast or splint has a bad smell The cast or splint develops cracks or breaks [id number] The [employer]. [address] [place] [address]. All rights reserved. This information is not intended as a substitute for professional medical care. Always follow yourhealthcare professional's instructions. Follow Up Care 07/26/2023 11:34:41 With:DO LISSA MARTINEZ DO Address: [address] [place] [address] [address] [place] [address] When:3-7 days [facility] 12-22-2023 Note Discharge Instructions Thank you for allowing [facility] to assist you with your healthcare needs. The following is importantdischarge information regarding your hospital visit. Diagnosis from Today's Visit Ankle fracture - medial malleolus Fall Fracture of fibula What to Do Next Instructions from Your Care Team Discharge Home Equipment - Ordered -- Walking Boot, 99 month(s), 07/26/23 12:52:00 EST Post Acute Orders No qualifying data available. You Need to Schedule the Following Appointments Follow Up with MICHELLE, DO ALCARAZ DO When Within 3-7 days Where: [address] [facility] [address] [place] [address] Allergies lisinopril (Lip swelling) azithromycin sulfa drug Medications Please ask your primary doctor or pharmacist before taking any other medication not listed, including over the counter drugs, herbal medications, vitamins and or supplements as they may interact withyour home medications. What How Much When Instructions Last Dose Unchanged albuterol (Albuterol (Eqv- ProAir HFA) 90 mcg/ inh inhalation aerosol) 2 puff(s) by inhalation Every 4 hours as needed for Shortness of breath or wheezing INHALE TWO (2) PUFFS BY MOUTH EVERY 4 HOURS NEEDED FOR SHORTNESS OF BREATH OR WHEEZING Unchanged amiodarone (amiodarone 100 mg oral tablet) 1 tab(s) by mouth Once a day TAKE 1 TABLET BY MOUTH ONCE DAILY *DO NOT TAKE IF HEART RATE IS LESS THAN 40* Unchanged amLODIPine (amLODIPine 10 mg oral tablet) 0.5 tab(s) by mouth Once a day TAKE 1/ 2 TABLET BY MOUTH TWICE DAILY Unchanged apixaban (Eliquis 5 mg oral tablet) 1 tab(s) by mouth Two (2) times a day TAKE ONE (1) TABLET BY MOUTH TWICE DAILY Unchanged aspirin (aspirin 81 mg oral delayed release tablet) 1 tab(s) by mouth Once a day Unchanged atorvastatin (atorvastatin 40 mg oral tablet) 1 tab(s) by mouth Once a day TAKE 1 TABLET BY MOUTH ONCE DAILY Unchanged baclofen (baclofen 10 mg oral tablet) 0.5 tab(s) by mouth Three (3) times a day TAKE 1/ 2 TABLET BY MOUTH THREE TIMES A DAY Unchanged budesonide-formoterol (Symbicort 160 mcg-4.5 mcg/ inh Inhaler) Unchanged busPIRone (busPIRone 10 mg oral tablet) 1 tab(s) by mouth Three (3) times a day Unchanged escitalopram (escitalopram 20 mg oral tablet) 1 tab(s) by mouth Once a day TAKE 1 TABLET BY MOUTH ONCE DAILY Unchanged ezetimibe (ezetimibe 10 mg oral tablet) 1 tab(s) by mouth Once a day TAKE 1 TABLET BY MOUTH ONCE DAILY Unchanged famotidine (famotidine 20 mg oral tablet) 1 tab(s) by mouth Daily at bedtime Unchanged fluticasone nasal (fluticasone proprionate NASAL 50 mcg/ spray) 1 spray(s) each nostril Two (2) times a day Unchanged losartan (losartan 25 mg oral tablet) 1 tab(s) by mouth Once a day Unchanged Misc Medication (BACLOFEN 10MG TAB) TAKE 1/ 2 TABLET BY MOUTH THREE TIMES A DAY Unchanged multivitamin (Multivitamin) 1 tab(s) by mouth Every day Unchanged nystatin topical (nystatin 100,000 units/ g topical cream) 1 application Topical Three (3) times a day Unchanged olodaterol-tiotropium (Stiolto Respimat 60 ACT 2.5 mcg-2.5 mcg/ inh inhalation aerosol) 2 puff(s) by inhalation Every 24 hours Unchanged traZODone (traZODone 100 mg oral tablet) 1 tab(s) by mouth Daily at bedtime TAKE 1 TABLET BY MOUTH DAILY AT BEDTIME Please take this list to your next doctor s visit. Bring all medications you take, including over the counter medications, herbals and other supplements with you to your doctor s visit. Patients and families are reminded to discard old lists and to update any records with all medication providers or retail pharmacies. Education Materials Ankle Fracture You have an ankle fracture. This means that one or more of the bones that make up the ankle joint are broken. This often causes pain, swelling, and bruising. A fracture is treated with a splint, cast, or special boot. It will take about 4 to 6 weeks for thefracture to heal. Surgery may be needed to fix severe injuries. Home care You will be given a splint, cast, or boot to prevent movement at the ankle joint. Unless you were told otherwise, use crutches or a walker. Don t put weight on the injured leg until cleared by your healthcare provider to do so. Crutches and walkers can be rented at many pharmacies and surgical or orthopedic supply stores. Don t put weight on a splint. It will break. Keep your leg raised to reduce pain and swelling. When sleeping, place a pillow under the injured leg. When sitting, support the injured leg so it is often. This is very important during the first 48hours. Apply an ice pack over the injured area for no more than 15 to 20 minutes. Do this every 3 to 6 hours for the first 24 to 48 hours. Keep using ice packs 3 to 4 times a day for the next 2 to 3 days, then as needed to ease pain and swelling. To make an ice pack, put ice cubes in a plastic bag that seals at the top. Wrap the bag in a clean, thin towel or cloth. Never put ice or an ice pack directly on the skin. You can place the ice pack directly over the cast or splint. As the ice melts, be careful that the cast or splint doesn t get wet. Keep the cast, splint, or boot completely dry at all times. Bathe with your cast, splint, or boot out of the water, protected with [address] 1 bag outside of the other. Tape each bag with duct tape at the top end or use rubber bands. Water can still leak in. So it's best to keep the cast, splint, or boot away from water. If a boot or fiberglass cast or splint gets wet, dry it with a communications department chairperson on a cool setting. You may use xuay-cga-iejoell pain medicine to control pain, unless another pain medicine was prescribed. Talk with your provider before using these medicines if you have chronic liver or kidney disease or ever had a stomach ulcer or GI (gastrointestinal) bleeding. Follow-up care Follow up with your healthcare provider in 1 week, or as advised. This is to be sure the bone is healing correctly. If you were given a splint, it may be changed to a cast or boot at your follow-up visit. If X-rays were taken, you will be told of any new findings that may affect your care. When to seek medical advice Call your healthcare provider right away if any of these occur: The plaster cast or splint becomes wet or soft The fiberglass cast or splint stays wet for more than 24 hours There is increased tightness, sore areas, or pain under the cast or splint Your toes become swollen, cold, blue, numb, or tingly The cast or splint becomes loose The cast or splint has a bad smell The cast or splint develops cracks or breaks [id number] The [employer], [employer]. [address] [place] [address], [place] [address]. All rights reserved. This information is not intended as a substitute for professional medical care. Always follow yourhealthcare professional's instructions. Additional Information VACCINATE! IT SAVES LIVES! Members of the community who have not yet received the COVID-19 vaccine and would like to receive it can visit one of [facility] vaccine clinics. There are many vaccine clinic locations within the [facility]. For locations and available times, please visit www.gettheshot.coronavirus.[place].gov/. It is important to note that some COVID mobile vaccine clinics are held outdoors and may be canceled in rainy or stormy conditions. To learn more about pediatric vaccinations (ages 5-11), we invite you to visit the [facility] webpage. [email or web address] [email or web address]/[email or web address]-Kipvt-Eaxltrmraex-Gvptfufhff-Fichf-Glz stions.htmlTo learn more about the COVID-19 vaccine, we invite you to visit the CDC website for a list of frequently asked questions. https://www.cdc.gov/coronavirus/2019-ncov/vaccines/faq.html [facility] Patient Portal Access Instructions: Stay connected with your healthcare team and access your personal medical information anytime with the [employer] Patient Portal. If you would like a full copy of your medical records please contact the [facility] Medical Records Department Saturday through Saturday between 8a.m. and 4:30p.m. Please follow the directions below to access the portal: 1.Access the email account you provided upon registration to the hospital.2.Look for an invitation email from [facility].3.Open the email and access the invitation link: Accept Invitation to [facility]4.Fill in the required krueger to create your account. Sign into [email or web address] with your username and password that you created in the above steps to stay up to date. You can then view a summary of results, a summary of your visits, and the ability to download your summaries to your computer or send the information securely to a physician. Remember that your healthcare information is confidential, so carefully consider who you will allow to register on the [employer] Patient Portal for access to your information. You can also access the [employer] Patient Portal on the [employer] rigo. Simply click on Health Records under Et[employer] and then click on the [employer] logo. HOW TO SAFELY DISPOSE OF PRESCRIPTION MEDICATIONS Please use one of the following methods to safely dispose of your unused medications. 1.Use a drug disposal kit: the drug disposal pouch allows you to safely discard your old and unuseddrugs. Ask your nurse to give you one when you are discharged.2.Visit a local take-back location: Many local pharmacies and police departments have programs that collect old and unwanted prescriptiondrugs. Call your local pharmacy or go to http://ZestFinance.Phylogy/9S6Of2j to find one close to you.3.Make use of household items: Use cat litter or old coffee grounds to dispose medications if other options arenot available. Mix your drugs with these household products, seal them in an airtight container andthrow it into the garbage. Call [facility]: [phone] to be sure your drugs can be disposed of in this way. Some medicines may require a different approach.4.Never flush your medications down the toilet. IF YOU HAVE BEEN PRESCRIBED AN OPIOIDS FOR PAIN If you have been prescribed an opioid (such as hydrocodone, oxycodone or morphine), it is critical to understand the possible side effects and risks of opioid pain medications. Even when taken as directed, opioids can have several side effects including: Tolerance, meaning you might need to take more of a medication for the same pain relief. Nausea, vomiting and/or constipation. Sleepiness, dizziness, dry mouth, confusion, depression or itching. Physical dependence, meaning you have withdrawal symptoms when a medication is stopped ? this can develop within a few days. KNOW YOUR RESPONSIBILITIES It is important to know exactly how much and how often to take the opioid pain medications you are prescribed. Never take opioids in higher amounts or more often than prescribed. Do not combine opioids with alcohol or other drugs that cause drowsiness, such as benzodiazepines, also known as benzos,including diazepam and alprazolam, muscle relaxants or sleep aids. Never sell or share prescriptionopioids. This is illegal. Store opioids in a secure place and out of reach of others (including children, family, friends and visitors). The last page(s) of this document has been signed and retained as a CHART COPY Signatures Patient Education Materials Ankle Fracture Medication Leaflets My discharge plan and instructions have been reviewed and explained to me and I,AFSHIN ZEE understand my current condition and have read and understand these discharge instructions. I have receiveda written copy of the plan/instructions. If I have questions, I am aware that I should contact my do ctor. 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 There is cortical disruption in the head of the 4th proximal phalanx suggesting a nondisplaced fracture with questionable articular disruption. No other obvious acute fracture or dislocation in the foot. There is a nondisplaced fracture of the medial malleolus. Also an oblique fracture of the distal fibula extending to the syndesmosis with mild distraction. No dislocation at the ankle. IMPRESSION: Fractures of the distal fibula and medial malleolus. Also suspect fracture of the 4th proximal phalanx, correlate with point tenderness. Interpreted by: Zo Stevens MD Preliminary Report By: Zo Stevens MD Electronically signed By Zo Stevens MD Dictated Date: 07/26/2023 12:40:10 PM Prelim Date: 07/26/2023 12:43:33 PM Sign Date: 07/26/2023 12:43:33 PM Ordering Provider: [facility]12-22-2023 Note ORIGINAL EXAMINATION: ONE XRAY VIEW OF THE IHQUQH6107/26/2023 12:28 pm COMPARISON: 03/22/2023 HISTORY: ORDERING SYSTEM PROVIDED HISTORY: Reason for Exam: pain; trauma patient FINDINGS: No acute pelvic fracture is seen. Moderate to severe bilateral hip osteoarthritis. Symmetric SI joints. IMPRESSION: No pelvic fracture is seen. If there is concern for hip fracture, dedicated hip radiographs should be obtained. Interpreted by: Zo Stevens MD Preliminary Report By: Zo Stevens MD Electronically signed By Zo Stevens MD Dictated Date: 07/26/2023 12:39:10 PM Prelim Date: 07/26/2023 12:39:59 PM Sign Date: 07/26/2023 12:39:59 PM Ordering Provider: [facility]12-22-2023 Note ORIGINAL EXAMINATION: ONE XRAY VIEW OF THE CHEST07/26/2023 12:26 pm XR Chest, portable upright COMPARISON: 03/25/2023 HISTORY: ORDERING SYSTEM PROVIDED HISTORY: Reason for Exam: pain; trauma patient, FINDINGS: The lungs show no suspicious nodule, infiltrate, consolidation or mass. Heart size and mediastinal contours are stable accounting for differences in projection and patient position. No pneumothorax, pleural fluid, or vascular congestion is seen. The bones show no acute process. Previous sternotomy and bypass surgery. IMPRESSION: No acute cardio pulmonary process. If there is strong concern for rib fracture, consider dedicated rib series. Interpreted by: Zo Stevens MD Preliminary Report By: Zo Stevens MD Electronically signed By Zo Stevens MD Dictated Date: 07/26/2023 12:37:05 PM Prelim Date: 07/26/2023 12:37:50 PM Sign Date: 07/26/2023 12:37:50 PM Ordering Provider: [facility]12-22-2023 Note ORIGINAL HISTORY: Fall COMPARISON: No TECHNIQUE: Cervical spine CT with sagittal and coronal reconstructions. This exam was performed according to our departmental dose optimization program, and includes the following measures where applicable: automated exposure control, adjustment of the mAs and/or kVp according to patient size and/or exam, and an iterative reconstruction algorithm. FINDINGS: There are no acute fractures or dislocations. There is straightening of the normal cervical lordosis. The individual vertebral bodies are intact. Prevertebral soft tissues are unremarkable in appearance. There is consolidation and or scarring in the right lung apex. There are underlying emphysematous changes. IMPRESSION: No acute fracture. Interpreted by: Zenaida Shi MD Preliminary Report By: Zenaida Shi MD Electronically signed By Zenaida Shi MD Dictated Date: 07/26/2023 12:32:15 PM Prelim Date: 07/26/2023 12:33:14 PM Sign Date: 07/26/2023 12:33:14 PM Ordering Provider: [facility]12-22-2023 Note ORIGINAL HISTORY: Fall COMPARISON: 22 March 2023 TECHNIQUE: Routine non-contrast head CT with sagittal and coronal reconstructions This exam was performed according to our departmental dose optimization program, and includes the following measures where applicable: automated exposure control, adjustment of the mAs and/or kVp according to patient size and/or exam, and an iterative reconstruction algorithm. FINDINGS: There is a large area of encephalomalacia involving portions of the left frontal, parietal and temporal lobes. There is ex vacuo dilatation of left-sided sulci in the left lateral ventricle. On the right, the ventricles and sulci are mildly enlarged. There are no abnormal intra or extra-axial fluid collections. The calvaria and the bones of the base of the skull are intact. IMPRESSION: No significant interval change. Interpreted by: Zenaida Shi MD Preliminary Report By: Zenaida Shi MD Electronically signed By Zenaida Shi MD Dictated Date: 07/26/2023 12:30:49 PM Prelim Date: 07/26/2023 12:32:07 PM Sign Date: 07/26/2023 12:32:07 PM Ordering Provider: MATTHEW [facility]12-21-2023 Miscellaneous Notes* Telephone Encounter - Kassandra Shearer - 07/25/2023 10:03 AM EST [phone] Afshin Zee called for path results. documented in this encounterProtestant Hospital12-18-2023 Miscellaneous Notes* Telephone Encounter - Mariano Beckman APRN.CNP - 07/22/2023 2:06 PM EST The following approved medication requests have been transmitted electronically. Requested Prescriptions Pending Prescriptions Disp Refills traZODone (DESYREL) 100 mg tablet 30 tablet 11 Sig: Take 1 tablet by mouth daily at bedtime. Mariano Beckman APRN.CNP * Telephone Encounter - Therese Paz LPN - 07/22/2023 1:19 PM EST Patient has been identified by name and date of : Yes, Provider Dr. Blackman Date 07/22/23 Time 1:19 pm Spouse phones for refill(s): Requested Prescriptions Pending Prescriptions Disp Refills traZODone (DESYREL) 100 mg tablet 30 tablet 11 Sig: Take 1 tablet by mouth daily at bedtime. Date of last office visit in primary care: 06/11/2023 Date of next office visit in primary care: 09/12/2023 Please advise. Thank you. Therese Paz LPN. documented in this encounterProtestant Hospital12-11-2023 History of Present illness Narrative* Kendra Emery, PhD - 07/15/2023 4:10 PM EST Behavioral Medicine [facility] [place] Name: Afshin Zee MR#: [id number] Date: 07/15/2023 Time: 1 hour Referred by: Dr. Sandoval Reason for Referral: address psychological factors as they can affect post- operative recovery. Information relayed back to referral source via electronic medical record His chart was reviewed and he gave his own history. He was seen with his . Due to his aphasia from his stroke his spoke for him. Comprehension was not formally assessed but seemed to be adequate. He did become frustrated at times when it seemed that he was not in agreement with his . Because of his inability to communicate on his own his wanted to make sure that she could staywith him in the hospital so as to communicate for him. We reviewed his medications and he is not taking Ativan with any regularity and none recently. He does take Buspar, Lexapro and Trazodone. The basic underlying psychological and physiological mechanisms behind the brain body connection were briefly explained. He was introduced to the concepts and techniques that he can employ to help with pain and healing after surgery. He was given the link to the Behavioral Medicine Program website- it was put on his 's phone-, instructed on the use of the relaxation recordings, and told of the informational content. They weregiven the opportunity to ask questions and informed that he could be seen again. Kendra Sinclair, Ph.D. documented in this encounterProtestant Hospital12-11-2023 History of Present illness Narrative* Amada Robert RN - 07/15/2023 12:50 PM EST AMBULATORY PATIENT EDUCATION NOTE READINESS TO LEARN COGNITIVE ABILITY: Medically disabled MOTIVATION TO LEARN: education given to patients -patient suffered from stroke and is unable tounderstand or consent for self FAMILY SUPPORT: High - Very involved in pt care INSTRUCTION PROVIDED TO: Caregiver and Spouse PATIENT LEARNS BEST BY: Written Instruction - Hand-outs Verbal Instruction FACTORS AFFECTING LEARNING: Unable to assess PHYSICAL LIMITATIONS AFFECTING LEARNING: None LEARNING RESPONSE DIAGNOSIS: Benign neoplasm of rectum EDUCATION TOPIC/ TEACHING POINTS: Procedure / Surgery: Pre-op Teaching: Logistics / Protocols / Complication Prevention METHOD OF INSTRUCTION: Written instruction - handouts Verbal instruction PATIENT / FAMILY RESPONSE: Verbalizes understanding of:bowel prep and enemas, pre-antibiotics, surgery pre-op packet, map/directions, pre-op check list FOLLOW-UP PLAN: Patient instructed to call with any further issues Electronically Signed By Amada Robert RN in Department: COLORECTAL SURGERY documented in this encounterProtestant Hospital12-11-2023 Instructions* Patient Instructions* Rock Batista DO - 07/15/2023 11:36 AM EST PATIENT PREOPERATIVE INSTRUCTIONS Nacho Sandoval MD has scheduled you for your procedure at this surgery center: [facility] Scheduling Office: [phone] --[address] [place] [address]. Please read below carefully for your personalized instructions. Dietary Restrictions: - Follow bowel prep instructions: clear liquids need to be stopped 2 hours prior to schedule arrival at facility Medications: Unless instructed differently below, stay on all of your medications until your surgery. If you start any new medications after today's visit, please contact your surgeon. Pre-Surgery Med Instructions Medication Instructions ferrous sulfate 325 mg (65 mg iron) tablet Do not take the day of surgery albuterol HFA (PROVENTIL HFA, VENTOLIN HFA) 90 mcg/actuation inhaler Take the day of surgery with asmall sip of water baclofen 10 mg tablet Take the day of surgery with a small sip of water aspirin, enteric coated (ASPIRIN, ENTERIC COATED) 81 mg EC tablet I will verify with Surgical team for instructions tiotropium-olodaterol (STIOLTO RESPIMAT) 2.5-2.5 mcg/actuation Take the day of surgery with a smallsip of water albuterol (PROVENTIL) 2.5 mg /3 mL (0.083 %) nebulizer solution Take the day of surgery with a small sip of water amLODIPine (NORVASC) 10 mg tablet Take the day of surgery with a small sip of water multivitamin tablet Stop 7 days before surgery busPIRone (BUSPAR) 10 mg tablet Do not take the day of surgery ezetimibe (ZETIA) 10 mg tablet Do not take the day of surgery escitalopram oxalate (LEXAPRO) 20 mg tablet Take the day of surgery with a small sip of water apixaban (ELIQUIS) 5 mg tab(s) Hold for 2 days as per cath lab manager instructions atorvastatin (LIPITOR) 40 mg tablet Take the day of surgery with a small sip of water famotidine (PEPCID) 20 mg tablet Take the day of surgery with a small sip of water amiodarone (PACERONE) 100 mg tablet Take the day of surgery with a small sip of water losartan (COZAAR) 25 mg tablet Do not take the day of surgery metoprolol tartrate, short acting, (LOPRESSOR) 25 mg tablet Take the day of surgery with a small sip of water traZODone (DESYREL) 100 mg tablet Do not take the day of surgery If you take any medications for erectile dysfunction-Cialis (Tadalafil), Levitra, Staxyn (Vardenafil) Viagra (Sildenenafil please do not take these for 48 hours before surgery. If you start any new medications after today's visit, please contact the surgeon's office. Blood Thinning Medications: - Do NOT stop aspirin or other anticoagulants without consulting with your cath lab manager or prescribing physician. - Stop Vitamin E, ALL multi-vitamins, herbals and dietary supplements 7 days before surgery. - You may take Tylenol (Acetaminophen) or any of your pain medications that do not contain aspirin or NSAIDS as needed. Important Reminders: - Candy, mints, and tobacco products are NOT permitted the morning of surgery. - Hearing aids, dentures and glasses may be worn the morning of surgery. - NO jewelry, body piercings, makeup, hairpins or contacts are to be worn the day of surgery. If you develop symptoms such as a fever, cold, or flu, or have other changes to your health within TWO DAYS of scheduled surgery or the morning of surgery, please contact the surgery center above. Personal Belongings: -Please have photo ID and insurance cards. -If you do not have a copy of advance directives on file with us, please bring a copy with you on the day of surgery. - Leave ALL valuables and money at home or with family members. Arrival Time for Surgery: - To obtain your arrival time for surgery, call your physician's office the day before your surgery. - If your surgery is scheduled for Saturday, call the Saturday before. Your surgeon s home care scheduler will tell you what time to call the office. - If you have not reached the departmental home care scheduler by 5 P.M., call [phone] after 5 P.M. the day before your surgery. Please be aware that emergency situations arise, which may delay or change your surgical time. If this happens, we will notify you as soon as possible and regret any inconvenience. If you already have an Advance Directive, please fax a copy to [phone] or email to for it to be added to your chart. If you do not have an Advance Directive, you can find the appropriate form and more information at [email or web address]. We recommend that youcomplete the Advance Directive form found on the website and bring it with you the day of your surgery. It can be witnessed and scanned into your chart that day. Rock Batista DO documented in this encounterProtestant Hospital12-11-2023 History and physical note * Rock Batista DO - 07/15/2023 10:40 AM EST Images from the original note were not included. HISTORY AND PHYSICAL EXAMINATION Attending Note I evaluated the patient and personally participated in the lord components. I agree with the resident's findings and plan as documented and have discussed the case and management of the patient's carewith the resident. Signature: Raine Valdivia MD Date: 07/15/2023 Time: 2:37 PM SERVICE DATE: 07/14/2023 SERVICE TIME: 10:27 am PRIMARY CARE PHYSICIAN: Jaci Arroyo MD REASON FOR VISIT: Afshin Zee is a 67 year old male who is scheduled for Procedure: ROBOTIC SINGLE PORT LAPAROSCOPIC TRANSANAL LOCAL at the request of Dr. Nacho Sandoval for consultation. My final recommendation will be communicated back to the requesting physician by way of shared medical record or letter. The patient has the following: ACTIVE PROBLEM LIST Hyperlipidemia Erectile Dysfunction Cervicalgia Chronic Right Shoulder Pain Occlusion of Left Carotid Artery Stroke (Cerebrum) (Hcc) Aneurysm (Hcc) Essential Hypertension Anxiety Chronic Insomnia Right Hemiplegia (Hcc) Bradycardia Dysphasia Coronary Artery Disease Involving [place] Coronary Artery of [place] Heart Without Angina Pectoris Paroxysmal Atrial Fibrillation (Hcc) Aphasia As Late Effect of Cerebrovascular Accident Stage 3a Chronic Kidney Disease (Hcc) Centrilobular Emphysema (Hcc) Former Cigarette Smoker Stage 3 Chronic Kidney Disease, Unspecified Whether Stage 3a Or 3b Ckd (Hcc) Pre-Operative Cardiovascular Examination Subjective CHIEF COMPLAINT: Rectal mass HPI: Afshin Zee is a 67 year old male with PMHx of Stroke with right sided weakness and dysphasia,HTN, HLD, CAD S/p CABG x 5, pAF, prior tracheostomy (2017) CKD III, Occluded left carotid artery, anxiety, depression who presents to [facility] today for preop exam. Patient is scheduled for the above procedure on 07/18/23. Recently admitted from 03/22 to 03/27 for anemia in the setting of bloody bowel movement. He was transfused blood during stay. Colonoscopy evaluation was significant for rectal polyp. MRI 4.0 rectosigmoid junction polyoid mass Denies fevers, chills, chest pain, and SOB. PAST MEDICAL HISTORY Diagnosis Date Acute cerebral infarction (HCC) left LEANN (acute kidney injury) (HCC) Anemia Aneurysm (HCC) Anxiety state Atrial fibrillation (HCC) 11/2016 Balanitis CAD (coronary artery disease) Carotid stenosis COPD (chronic obstructive pulmonary disease) (HCC) Dysphasia Emphysema lung (HCC) History of blood transfusion 03/2023 Hypertension Hypoxia 03/2023 DARON (obstructive sleep apnea) PVD (peripheral vascular disease) (HCC) Respiratory failure (HCC) hypoxic-ventilator dependent Stroke (cerebrum) (HCC) Tobacco abuse PAST SURGICAL HISTORY Procedure Laterality Date CABG CONSULT 10/30/2016 multi vessel COLONOSCOPY SCREENING 04/10/2023 EGD W/O RUST SPEC VARICIES INJ 04/11/2023 EGD W/O BRS SPEC VARICIES INJ 04/10/2023 HEART CATHETERIZATION 09/17/2016 PAST SURGICAL HISTORY OF 2017 Aneurysm and stent surgery related to stroke TRACHEOSTOMY HX FAMILY HISTORY Problem Relation Age of Onset Heart Mother CO in her 70s, pacemaker Diabetes Mother Stroke Father other (AAA) Father other (CAD) Brother Hypertension Brother SOCIAL HISTORY: Social History Tobacco Use Smoking status: Former Packs/day: 2.00 Years: 45.00 Additional pack years: 0.00 Total pack years: 90.00 Types: Cigarettes Quit date: 07/08/2016 Years since quittin.0 Smokeless tobacco: Never Tobacco comments: 07/08/2016 Vaping Use Vaping Use: Never used Substance Use Topics Alcohol use: No Drug use: Never MEDICATIONS: Prior to Admission medications as of 07/08/23 1212 Medication Sig Last Dose Taking ferrous sulfate 325 mg (65 mg iron) tablet Take 1 tablet by mouth every other day. Taking Yes albuterol HFA (PROVENTIL HFA, VENTOLIN HFA) 90 mcg/actuation inhaler Inhale 2 Puffs as instructed every 4 hours as needed. Taking Yes baclofen 10 mg tablet TAKE 1/2 TABLET BY MOUTH THREE TIMES A DAY Taking Yes aspirin, enteric coated (ASPIRIN, ENTERIC COATED) 81 mg EC tablet Take 81 mg by mouth once daily. Taking Yes tiotropium-olodaterol (STIOLTO RESPIMAT) 2.5-2.5 mcg/actuation Inhale 2 Puffs as instructed once daily. Taking Yes albuterol (PROVENTIL) 2.5 mg /3 mL (0.083 %) nebulizer solution Use 3 mL via nebulizer every 4 hours as needed for wheezing/shortness of breath. Use over 5- 15minutes. Taking Yes amLODIPine (NORVASC) 10 mg tablet Take 0.5 tablets by mouth twice daily. Take 1/2 tablet twice daily Taking Yes multivitamin tablet Take 1 tablet by mouth once daily. Taking Yes busPIRone (BUSPAR) 10 mg tablet Take 1 tablet by mouth three times daily. Taking Yes ezetimibe (ZETIA) 10 mg tablet Take 1 tablet by mouth once daily. Taking Yes escitalopram oxalate (LEXAPRO) 20 mg tablet TAKE 1 TABLET BY MOUTH ONCE DAILY Taking Yes apixaban (ELIQUIS) 5 mg tab(s) TAKE ONE (1) TABLET BY MOUTH TWICE DAILY Taking Yes atorvastatin (LIPITOR) 40 mg tablet TAKE 1 TABLET BY MOUTH ONCE DAILY Taking Yes famotidine (PEPCID) 20 mg tablet TAKE 1 TABLET BY MOUTH AT BEDTIME NEEDED Taking Yes amiodarone (PACERONE) 100 mg tablet TAKE 1 TABLET BY MOUTH ONCE DAILY *DO NOT TAKE IF HEART RATE ISLESS THAN 40* Taking Yes losartan (COZAAR) 25 mg tablet take 1 tablet by mouth once daily Taking Yes metoprolol tartrate, short acting, (LOPRESSOR) 25 mg tablet Take 0.5 tablets by mouth twice daily. Hold if heart rate is less than 60 Taking Yes traZODone (DESYREL) 100 mg tablet Take 1 tablet by mouth daily at bedtime. Taking Yes neomycin 500 mg tablet Take 2 tablets by mouth at 9pm and take 2 tablets by mouth at 11pm the nightbefore surgery. metroNIDAZOLE (FLAGYL) 500 mg tablet Take 1 tablet by mouth at 9pm and take 1 tablet by mouth at 11pm the night before surgery. MELATONIN ORAL Take by mouth daily at bedtime. LORazepam (ATIVAN) 0.5 mg Take 1-2 tablets by mouth three times a day as needed for up to 30 days. fluticasone (FLONASE) 50 mcg/actuation nasal spray Use 1 [place] in each nostril twice daily. Rinse mouth after use. potassium chloride (K-TAB) 10 mEq tablet Take 2 tablets by mouth three times daily. Tadalafil (CIALIS) 10 mg tablet Take one pill 30-60 minutes prior to sexual activity as needed Patient not taking: Reported on 07/08/2023 tiotropium bromide (SPIRIVA RESPIMAT) 2.5 mcg/actuation inhaler Inhale as instructed. Patient not taking: Reported on 07/08/2023 miconazole (MONISTAT-DERM,LANCE) 2 % cream Apply to affected area twice daily. Blood Pressure Monitor kit 1 application twice daily. Measure patient for correct size. Patient needs cuff for left arm readings. COMPOUNDED PRESCRIPTION Articulating AFO foot brace for right leg. Send to [employer]. Dx: I63.9 COMPOUNDED PRESCRIPTION EMBER WALKER DX I63.9 weight 162 # Diaper,Brief, Adult,Disposable (DEPEND REAL FIT BRIEF MEN L/XL) misc 1 Each as needed. Blood Pressure Monitor kit 1 Kit once daily. Please measure patient for correct size. Medication Comments documented by JIMI Casas Laurie on 07/08/2023 at 1106. All meds reconciled with updated med list and actual med bottles. 07/08/2023 CURRENT ALLERGIES: ALLERGIES Allergen Reactions Doxycycline GI Upset GI upset (stomach ache/cramping/diarrhea) and splotchy face Sulfate Salt Hives Zpak [Azithromycin] Hives Lisinopril Swelling Lip swelling after starting lisinopril. COVID VACCINATION STATUS: Fully vaccinated REVIEW OF SYSTEMS: PAIN ASSESSMENT: General: No weight loss, malaise or fevers. Neuro: Postive for Stroke-residual deficit Hemiplegia/Hemiparesis Respiratory: No history of current cough or dyspnea, or pneumonia in the past 6 weeks. No history of respiratory/pulmonary symptoms or problems. +COPD Cardiovascular: Positive for: Anticoagulation therapy, Hypertension, Open heart 2017 +CABG x 5 GI: No history of GI symptoms or problems. No history of esophageal varices, recent ascites, or ETOH greater than 2 drinks per day. +Rectal mass, +Blood in stool : No history of dysuria, frequency or incontinence,, stones or chronic kidney disease Endocrine: No history of diabetes. Has not taken steroids within the past 30 days. No history of endocrinological symptoms or problems. Hematology: Bleeding in stool.. ON Eliquis and aspirin Oncology: No history of CA metastasis, chemo within 30 days, or radiotherapy within 90 days. Has not lost 10% of body wt in 6 months. No history of oncological symptoms or problems. Psych: No history of psychiatric symptoms or problems. Musculoskeletal: Negative for joint pain or swelling, back pain or muscle pain. Skin: Negative for lesions, rash and itching. Objective PHYSICAL EXAM: VITALS: BP 121/53 Pulse 50 Temp (Src) 97.5 (Temporal) Ht 5' 9 (1.75m) Wt 191 lb (86.6kg) SpO2 95% BMI 28.19 kg/(m^2). General: Alert and oriented, No acute distress Skin: Normal color, no rash, no lesions. HEENT: EOM, pupils equal, round and reactive. Cardiovascular: Sinus Shahid 50 BPM. Normal S1 and S2, no murmurs appreciated Lungs: Normal breath sounds, no wheezes or crackles. Abdomen: Soft, non-tender, no rigidity. Extremities: Clenched Right hand. no edema or tenderness, no joint swelling or clubbing. Neurological: Right hemiparalysis Pulses: Normal right and left radial artery Diagnostic tests reviewed for today's visit: Lab Value Units Date High Low HB 11.5 g/dL 06/06/2023 17.0 13.0 HCT 36.8 % 06/06/2023 51.0 39.0 WBC 12.38 k/uL 06/06/2023 11.00 3.70 PLT 263 k/uL 06/06/2023 400 150 NA 140 mmol/L 06/06/2023 144 136 K 4.0 mmol/L 06/06/2023 5.1 3.7 GLUC 92 mg/dL 06/06/2023 99 74 BUN 18 mg/dL 06/06/2023 24 9 CREAT 1.25 mg/dL 06/06/2023 1.22 0.73 PTSEC No results within date range. INR No results within date range. APTT No results within date range. ALT 16 U/L 06/06/2023 54 10 AST 14 U/L 06/06/2023 40 14 TBILI 0.4 mg/dL 06/06/2023 1.3 0.2 TSH No results within date range. Lab Value Units Date High Low HCGQT No results within date range. UHCG No results within date range. HCG, BODY* No results within date range. Lab Value Units Date High Low ABORHD No results within date range. ABSCREEN No results within date range. Hemoglobin A1C (%) Date Value 05/09/2023 4.7 10/22/2016 4.9 Most recent labs Most recent imaging Most recent EKG: Sinus Shahid Most recent Echo ECG 09/03/22 : Sinus Shahid with 1st degree AV block. Left [place], Age undetermined inferior CO ECHO 12/20/22 PFT 03/12/2023 : c/w moderate obstruction Assessment/Plan Stroke (cerebrum) (HCC) Stroke 2017 on POD 1 after CABG x5 Residual right hemiparalysis, aphasia and left eye blindness Left Carotid occlusion, left subclavian stent On ASA. Will ask surgical team ASA preferences Coronary artery disease involving [place] coronary artery of [place] heart without angina pectoris CABG x 5 (2017) Seen by cardiology on 07/08/23 Patient is at low and acceptable risk for planned moderate risk procedure. -Stop Eliquis 48 hours prior to your surgery. Resumed as instructed per surgical team Paroxysmal atrial fibrillation (HCC) On Amiodarone and eliquis -Hold eliquis as instructed by cath lab manager for 48 hours prior to surgery Centrilobular emphysema (HCC) PFTs with moderate obstruction Stable on RX METS: Take care of self; that is eating, dressing, bathing, using the toilet (2.75 METs) ANESTHESIA FINDINGS: Intubation History: prior tracheostomy (2016) Significant Anesthesia Considerations: Prior Tracheostomy Airway Exam: General: Normal appearance Mallampati Score is CLASS I ULBT: Class I - Lower incisors can bite the upper lip above the nella line Neck: Normal appearance and function, Distance from hyoid to mentum during neck extension is at least 3 finger breaths Mouth: Normal tongue size Dentition: Upper denture and Lower denture Airway History: prior tracheostomy STOP BANG Score: Criteria: BMI > 35 Age over 50 (67 year old) Male gender Score = 3 PLAN This patient is optimally prepared for surgery. CONSULTS: Patient does not require consults for optimization at this time. The Following Tests/Procedures Have Been Initiated: Orders Placed This Encounter US CAROTID BILATERAL Standing Status: Future Standing Expiration Date: 08/13/2024 Ordering US Carotid US for assessment. Planned Anesthetic: Per anesthesia choice Instructions Given to Patient: Instructions located in the after visit summary. Patient given verbal and written preop instructions and voices comprehension and compliance. SIGNATURE: Rock Batista DO PATIENT NAME: Afshin Zee DATE: July 15, 2023 TIME: 11:00 am documented in this encounterProtestant Hospital12-07-2023 Miscellaneous Notes* Telephone Encounter - Loida Vazquez LPN - 07/11/2023 4:06 PM EST Patient Eli returned call and went over notes below from Dr Arroyo with understanding. * Telephone Encounter - Monica Cruz Ma - 07/11/2023 2:02 PM EST Message left for pt to call back for results. Monica Cruz MA * Telephone Encounter - Jaci Arroyo MD - 07/11/2023 11:46 AM EST BP of 143/71 is not too bad. Ideally the top number should be under 140, but if it is above that occasionally that is not a problem. If the top number is persistently above 150-160 then she should let us know. Jaci Arroyo MD * Telephone Encounter - Jayde Laughlin RN - 07/11/2023 10:27 AM EST Patient's calls and states that patient's blood pressure is 143/71. asking if this blood pressure is ok. asking what blood pressure reading should she be concerned? does not want blood pressure to be to elevated. Please review and advise, Jayde Laughlin RN documented in this encounterProtestant Hospital12-04-2023 Instructions* Patient Instructions* Robin Johansen MD - 07/08/2023 11:16 AM EST You should stop the Eliquis 48 hours (2 days) prior to your surgery You can resume Eliquis after surgery as instructed my your surgical team documented in this encounterProtestant Hospital12-04-2023 History of Present illness Narrative* Robin Johansen MD - 07/08/2023 11:00 AM EST Images from the original note were not included. [facility] SE[facility]IONAL CARDIOLOGY Cardiology ([facility]) [address] [facility] [id number] OUTPATIENT VISIT DATE 06/08/2023 PRIMARY CARE PHYSICIAN: Jaci Arroyo [address] [place] [address] HISTORY OF PRESENT ILLNESS: Mr. Zee is a 67 year old gentleman with a history of coronary artery disease and prior coronary artery bypass grafting in October 2016 complicated by left hemispheric CVA. He has resulting weakness that is right-sided and dysphasia. He was accompanied to the office visit by his . Patient is scheduled for surgery next week for rectal mass. There is been no change in his functional capacity according to his . He is still able to ambulate about his house despite right lower extremity weakness. There has been no signs or symptoms of shortness of breath or symptoms concerning for CHF including PND, orthopnea, or lower extremity edema. 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 Kimbrough on 10/30/2016. SECONDARY PROCEDURES PERFORMED: 1. Cerebral angiography and stenting of the left subclavian artery performed by Dr. West on 11/02/2016. 2. Tracheostomy performed by Dr. Delgado on 11/07/2016. 3. Fluoroscopically guided placement of gastrostomy tube into the stomach performed on 11/07/2016. PAST MEDICAL HISTORY Diagnosis Date Acute cerebral infarction (HCC) left LEANN (acute kidney injury) (HCC) Anemia Aneurysm (HCC) Anxiety state Atrial fibrillation (HCC) 11/2016 Balanitis CAD (coronary artery disease) Carotid stenosis COPD (chronic obstructive pulmonary disease) (HCC) Dysphasia Emphysema lung (HCC) History of blood transfusion 03/2023 Hypertension Hypoxia 03/2023 DARON (obstructive sleep apnea) PVD (peripheral vascular disease) ([facility]) Respiratory failure (HCC) hypoxic-ventilator dependent Stroke (cerebrum) (HCC) Tobacco abuse PAST SURGICAL HISTORY Procedure Laterality Date CABG CONSULT 10/30/2016 multi vessel COLONOSCOPY SCREENING 04/10/2023 EGD W/O RUST SPEC VARICIES INJ 04/11/2023 EGD W/O RUST SPEC VARICIES INJ 04/10/2023 HEART CATHETERIZATION 09/17/2016 PAST SURGICAL HISTORY OF 2017 Aneurysm and stent surgery related to stroke TRACHEOSTOMY HX SOCIAL HISTORY Social History Tobacco Use Smoking status: Former Packs/day: 2.00 Years: 45.00 Additional pack years: 0.00 Total pack years: 90.00 Types: Cigarettes Quit date: 07/08/2016 Years since quittin.0 Smokeless tobacco: Never Tobacco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 04/10/2023 EGD W/O BRSH SPEC VARICIES INJ 04/11/2023 EGD W/O BRSH SPEC VARICIES INJ 04/10/2023 HEART CATHETERIZATION 09/17/2016 TRACHEOSTOMY HX SOCIAL HISTORY: Social History Tobacco Use Smoking status: Former Packs/day: 2.00 Years: 45.00 Additional pack years: 0.00 Total pack years: 90.00 Types: Cigarettes Quit date: 07/08/2016 Years since quittin.9 Smokeless tobacco: Never Tobacco comments: 07/08/2016 Vaping Use Vaping Use: Never used Substance Use Topics Alcohol use: No Drug use: Never FAMILY HISTORY Problem Relation Age of Onset Heart Mother CO in her 70s, pacemaker Diabetes Mother Stroke Father other (AAA) Father other (CAD) Brother Hypertension Brother MEDICATIONS: LORazepam (ATIVAN) 0.5 mg^Take 1-2 tablets by mouth three times a day as needed for up to 30 days.^Disp: 30 tablet^Rfl: 0 ferrous sulfate 325 mg (65 mg iron) tablet^Take 1 tablet by mouth every other day.^Disp: ^Rfl: albuterol HFA (PROVENTIL HFA, VENTOLIN HFA) 90 mcg/actuation inhaler^Inhale 2 Puffs as instructed every 4 hours as needed.^Disp: ^Rfl: baclofen 10 mg tablet^TAKE 1/2 TABLET BY MOUTH THREE TIMES A DAY^Disp: 45 tablet^Rfl: 11 clopidogrel (PLAVIX) 75 mg tablet^TAKE 1 TABLET BY MOUTH ONCE DAILY *EMERGENCY REFILL*^Disp: 30 tablet^Rfl: 10 aspirin, enteric coated (ASPIRIN, ENTERIC COATED) 81 mg EC tablet^Take 81 mg by mouth once daily.^Disp: ^Rfl: tiotropium-olodaterol (STIOLTO RESPIMAT) 2.5-2.5 mcg/actuation^Inhale 2 Puffs as instructed once daily.^Disp: 1 Each^Rfl: 5 albuterol (PROVENTIL) 2.5 mg /3 mL (0.083 %) nebulizer solution^Use 3 mL via nebulizer every 4 hours as needed for wheezing/shortness of breath. Use over 5- 15minutes.^Disp: 120 mL^Rfl: 5 amLODIPine (NORVASC) 10 mg tablet^Take 0.5 tablets by mouth twice daily. Take 1/2 tablet twice daily^Disp: 30 tablet^Rfl: 5 multivitamin tablet^Take 1 tablet by mouth once daily.^Disp: 90 tablet^Rfl: 3 fluticasone (FLONASE) 50 mcg/actuation nasal spray^Use 1 Almont in each nostril twice daily. Rinse mouth after use.^Disp: 16 g^Rfl: 11 busPIRone (BUSPAR) 10 mg tablet^Take 1 tablet by mouth three times daily.^Disp: 270 tablet^Rfl: 3 potassium chloride (K-TAB) 10 mEq tablet^Take 2 tablets by mouth three times daily.^Disp: 540 tablet^Rfl: 3 ezetimibe (ZETIA) 10 mg tablet^Take 1 tablet by mouth once daily.^Disp: 90 tablet^Rfl: 3 Tadalafil (CIALIS) 10 mg tablet^Take one pill 30-60 minutes prior to sexual activity as needed^Disp: 6 tablet^Rfl: 5 escitalopram oxalate (LEXAPRO) 20 mg tablet^TAKE 1 TABLET BY MOUTH ONCE DAILY^Disp: 30 tablet^Rfl: 10 apixaban (ELIQUIS) 5 mg tab(s)^TAKE ONE (1) TABLET BY MOUTH TWICE DAILY^Disp: 60 tablet^Rfl: 10 atorvastatin (LIPITOR) 40 mg tablet^TAKE 1 TABLET BY MOUTH ONCE DAILY^Disp: 30 tablet^Rfl: 10 famotidine (PEPCID) 20 mg tablet^TAKE 1 TABLET BY MOUTH AT BEDTIME NEEDED^Disp: 30 tablet^Rfl: 10 amiodarone (PACERONE) 100 mg tablet^TAKE 1 TABLET BY MOUTH ONCE DAILY *DO NOT TAKE IF HEART RATE ISLESS THAN 40*^Disp: 30 tablet^Rfl: 10 losartan (COZAAR) 25 mg tablet^take 1 tablet by mouth once daily^Disp: 90 tablet^Rfl: 3 metoprolol tartrate, short acting, (LOPRESSOR) 25 mg tablet^Take 0.5 tablets by mouth twice daily. Hold if heart rate is less than 60^Disp: 90 tablet^Rfl: 3 tiotropium bromide (SPIRIVA RESPIMAT) 2.5 mcg/actuation inhaler^Inhale as instructed.^Disp: ^Rfl: miconazole (MONISTAT-DERM,LANCE) 2 % cream^Apply to affected area twice daily.^Disp: ^Rfl: traZODone (DESYREL) 100 mg tablet^Take 1 tablet by mouth daily at bedtime.^Disp: 30 tablet^Rfl: 11 Blood Pressure Monitor kit^1 application twice daily. Measure patient for correct size. Patient needs cuff for left arm readings.^Disp: 1 Kit^Rfl: 0 COMPOUNDED PRESCRIPTION^Articulating AFO foot brace for right leg. Send to [employer]. Dx: I63.9^Disp: 1 Device^Rfl: 0 COMPOUNDED PRESCRIPTION^EMBER WALKER DX I63.9 weight 162 #^Disp: 1 Each^Rfl: 0 Diaper,Brief, Adult,Disposable (DEPEND REAL FIT BRIEF MEN L/XL) misc^1 Each as needed.^Disp: 100 Each^Rfl: 11 Blood Pressure Monitor kit^1 Kit once daily. Please measure patient for correct size.^Disp: 1 Kit^Rfl: 0 ALLERGIES: ALLERGIES Allergen Reactions Doxycycline GI Upset GI upset (stomach ache/cramping/diarrhea) and splotchy face Sulfate Salt Hives Zpak [Azithromycin] Hives Lisinopril Swelling Lip swelling after starting lisinopril. REVIEW of SYSTEMS: Constitutional: No weight loss, malaise or fevers. HEENT: Negative for frequent or significant headaches, No changes in hearing or vision, no nose bleeds or other nasal problems Respiratory: Positive for chronic cough and has COPD Cardiovascular: Negative for chest pain and palpitations and Positive for leg swelling Gatrointestinal: Positive for blood in stools and seeing provider at main tomorrow Genitourinary: No difficulty urination, nocturia >1 times per night or hematuria Musculoskeletal: Negative for joint pain or swelling, back pain or muscle pain Endocrine: Positive for cold intolerance Hematology/Lymphatic: Positive for bruises easily and on blood thinner Neurologic: No history or headaches, syncope, paralysis, seizures or tremors Integumentary: Negative for lesions, rash, and itching. PHYSICAL EXAM: VITALS: There were no vitals taken for this visit. General: Alert, oriented, cooperative, healthy appearance Integumentary: Normal color, no rash, no lesions. Cardiovascular: Pulse regular. Lungs: No chest deformities or chest wall tenderness. Abdomen: Not examined Extremities: Edema Neurological: Speech abnormality Vascular: biphasic doppler signal Diagnostic tests reviewed for today's visit: Most recent labs Most recent imaging IMPRESSION: Mr. Zee is a 67 year old male with peripheral arterial disease, carotid artery occlusion, and lower extremity edema . PLAN and RECOMMENDATIONS: Will get carotid duplex and follow up No need for PVRs at this time as he has no significant claudication, rest pain or tissue loss Continue current medications, blood pressure and cholesterol control SIGNATURE: Deanne Cruz DO PATIENT NAME: Afshin Zee DATE: June 18, 2023 TIME: 3:10 PM documented in this encounterProtest[facility] Hospital11-08-2023 History of Present illness Narrative* Ricardo Irizarry RT(R) - 06/12/2023 2:20 PM EST Radiology Service Progress Note PATIENT NAME: Afshin Zee DATE OF SERVICE: June 12, 2023 TIME: 2:53 PM PATIENT IDENTITY VERIFICATION COMPLETED USING TWO (2) IDENTIFIERS: Name and Date of confirmedby patient verbally. FALL SCREENING: Has the patient had 2 falls in the last year or 1 fall with injury or currently using an Ambulatory Assistive Device (Walker, Cane, Wheelchair, Crutches, etc.)? Yes, Patient High Riskfor Falls What interventions were put in place to prevent falls during this visit? Instructed Patient to Callfor Help if Needed, Offered Assistance with Transfers/Clothing, Instructed Patient to Remain Seated(Not on Exam Table) Until Exam, and Increased Observations by Caregivers PATIENT GENDER DATA: Male PATIENT RELEVANT IMPLANT DATA REVIEWED: Yes RADIOLOGY DEPARTMENT: MR; Exam(s) Completed: Body: Rectal PERIPHERAL IV DATA: Site assessment: Clean,Dry and Intact, Site disposition Discontinued SIGNED BY: RT Leigh(R) June 12, 2023 2:53 PM documented in this encounterProtest[facility] Hospital11-08-2023 History of Present illness Narrative* Kia Gandara RT(R) - 06/12/2023 1:00 PM EST Radiology Service Progress Note DATE OF SERVICE: June 12, 2023 TIME: 4:11 PM PATIENT IDENTITY VERIFICATION COMPLETED USING TWO (2) STANDARD IDENTIFIERS: Name and Date of confirmed by patient verbally. FALL SCREENING: Has the patient had 2 falls in the last year or 1 fall with injury or currently using an Ambulatory Assistive Device (Walker, Cane, Wheelchair, Crutches, etc.)? No PATIENT GENDER DATA: Male PATIENT RELEVANT IMPLANT DATA REVIEWED: Yes ALLERGIES: Reviewed and unchanged CONTRAST ALLERGY: NO. EXAM: CT -CONTRAST INDUCED NEPHROPATHY RISK FACTORS: Patient age > 60 years CREATININE: Creatinine Date Value Ref Range Status 06/06/2023 1.25 (H) 0.73 - 1.22 mg/dL Final 05/22/2023 1.30 (H) 0.73 - 1.22 mg/dL Final 05/09/2023 1.34 (H) 0.73 - 1.22 mg/dL Final Estimated Glomerular Filtration Rate Date Value Ref Range Status 06/06/2023 63 >=60 mL/min/1.73m Final Comment: Estimated Glomerular Filtration Rate (eGFR) is calculated using the 2020 CKD-EPI creatinine equation. This equation utilizes serum creatinine, sex, and age as parameters. The creatinine assay has traceable calibration to isotope dilution- mass spectrometry. Refer to KDIGO guidelines for clinical interpretation. In patients with unstable renal function, e.g. those with acute kidney injury, the eGFRmay not accurately reflect actual GFR. eGFR- Date Value Ref Range Status 02/01/2021 >60 Final P.O.C.T. RESULTS: POC done: Yes, See Lab Tab June 12, 2023 TREATMENT: N/A PERIPHERAL IV DATA: Ambulatory: A peripheral IV was started in the Left antecubital site with a Angio cath: 22 gauge. RADIOLOGY DEPARTMENT: CT; Exam(s) Completed: Abdomen/Pelvis SIGNATURE: RT Morena(R) PATIENT NAME: Afshin Zee DATE: June 12, 2023 TIME: 4:11 PM documented in this encounterProtestant Hospital11-07-2023 Miscellaneous Notes* Telephone Encounter - JIMI Casas Laurie - 06/11/2023 4:13 PM EST Taken care of in separate encounter. Therese Casas MA * Telephone Encounter - JIMI Casas Laurie - 05/29/2023 3:44 PM EDT Received fax of 05/29/2023 visit with Soraya Pate NP from [facility]. Recent Low dose CT lung pulled from [employer] dated 05/22/2023. At desk for review. Please review and advise. Therese Casas MA documented in this encounterProtestant Hospital11-07-2023 History of Present illness Narrative* Jaci Arroyo MD - 06/11/2023 3:00 PM EST Chief Complaint Patient presents with: F/U 3 Month HPI Afshin Zee is a 67 year old male who presents here today for 3 month follow up. Here with his , Eli. Went to [facility] last month. states that pt was able to direct her to where they were going.. No bowel, GI, or urinary issues. Follows with [facility]. GERD: Stable on Pepcid 20 mg daily prn. Anemia: Saw Dr. Cardoso last month. Had EGD/Colonoscopy completed in April, showing a polyp that was concerning. Taking Iron 65 mg every day. Scheduled to have CT/MRI tomorrow as ordered by Dr. Cardoso. Pt has f/u with Dr. Sandoval at [facility] for anal mass. Completing imaging prior to appt for him to review. COPD: Follows with Dr. Kimo Mcgrath [facility]. Uses Stioloto Respimat inhaler, nebulizer tx prn. Afib/HTN/CAD/Lipid - Checking BP at home, states this is doing well. Denies any chest pain, sob or dizziness. Following with Dr. Johansen, [facility] Manager, taking Eliquis 5 mg BID, Norvasc 10 mg halfpill BID, Pacerone 100 mg daily if heart rate is over 40, Losartan 25 mg daily, Lopressor 25 mg half pill BID if heart rate over 60, HCTZ 12.5 mg daily, and Potassium 10 mEq 2 pills TID. Glucose - Currently on on medications at this time, monitoring with routine labs. Admits to eating well. CVA/Lipid: Taking Lipitor 40 mg daily, Zetia 10 mg daily and Baclofen 10 mg half pill TID. Has seenLashawn Aj in past. He is scheduled with Physical Medicine to consider botox for right hand spasticity. He has Aphasia from the CVA, is doing therapy. states that he is able to say 3-4 words. Can walk with a cane but has some paralysis. Does get spasms in his right side that are bothersome. Is getting a hand brace through [employer]. Moods/JESS: Taking Ativan 0.5 mg, 1-2 pills prn, Buspar 10 mg TID, and Lexapro 20 mg daily. The ativan helps him sleep. Pt/ states that he's using 8-10 Ativan per month, doing well. Has not filledsince March. HM - Declines feeling down, depressed or hopeless. Received Flu and RSV, requesting Covid vaccine today. Past medical history, appointments, medications, allergies reviewed. Previous Medical History PAST MEDICAL HISTORY Diagnosis Date Acute cerebral infarction (HCC) left LEANN (acute kidney injury) (HCC) Anemia Aneurysm (HCC) Anxiety state Atrial fibrillation (HCC) 11/2016 Balanitis CAD (coronary artery disease) Carotid stenosis COPD (chronic obstructive pulmonary disease) (HCC) Dysphasia Emphysema lung (HCC) History of blood transfusion 03/2023 Hypertension Hypoxia 03/2023 DARON (obstructive sleep apnea) PVD (peripheral vascular disease) (HCC) Respiratory failure (HCC) hypoxic-ventilator dependent Stroke (cerebrum) (HCC) Tobacco abuse Previous Surgical History PAST SURGICAL HISTORY Procedure Laterality Date CABG CONSULT 10/30/2016 multi vessel COLONOSCOPY SCREENING 04/10/2023 EGD W/O RUST SPEC VARICIES INJ 04/11/2023 EGD W/O RUST SPEC VARICIES INJ 04/10/2023 HEART CATHETERIZATION 09/17/2016 TRACHEOSTOMY HX Family History FAMILY HISTORY Problem Relation Age of Onset Heart Mother CO in her 70s, pacemaker Diabetes Mother Stroke Father other (AAA) Father other (CAD) Brother Hypertension Brother Patient Allergies ALLERGIES Allergen Reactions Doxycycline GI Upset GI upset (stomach ache/cramping/diarrhea) and splotchy face Sulfate Salt Hives Zpak [Azithromycin] Hives Lisinopril Swelling Lip swelling after starting lisinopril. Current Medications Current Outpatient Medications on File Prior to Visit Medication Sig ferrous sulfate 325 mg (65 mg iron) tablet Take 1 tablet by mouth every other day. albuterol HFA (PROVENTIL HFA, VENTOLIN HFA) 90 mcg/actuation inhaler Inhale 2 Puffs as instructed every 4 hours as needed. baclofen 10 mg tablet TAKE 1/2 TABLET BY MOUTH THREE TIMES A DAY clopidogrel (PLAVIX) 75 mg tablet TAKE 1 TABLET BY MOUTH ONCE DAILY *EMERGENCY REFILL* (Patient nottaking: Reported on 04/19/2023) aspirin, enteric coated (ASPIRIN, ENTERIC COATED) 81 mg EC tablet Take 81 mg by mouth once daily. tiotropium-olodaterol (STIOLTO RESPIMAT) 2.5-2.5 mcg/actuation Inhale 2 Puffs as instructed once daily. albuterol (PROVENTIL) 2.5 mg /3 mL (0.083 %) nebulizer solution Use 3 mL via nebulizer every 4 hours as needed for wheezing/shortness of breath. Use over 5-15minutes. LORazepam (ATIVAN) 0.5 mg Take 1-2 tablets by mouth three times daily as needed for up to 90 days. amLODIPine (NORVASC) 10 mg tablet Take 0.5 tablets by mouth twice daily. Take 1/2 tablet twice daily multivitamin tablet Take 1 tablet by mouth once daily. fluticasone (FLONASE) 50 mcg/actuation nasal spray Use 1 Almont in each nostril twice daily. Rinse mouth after use. busPIRone (BUSPAR) 10 mg tablet Take 1 tablet by mouth three times daily. potassium chloride (K-TAB) 10 mEq tablet Take 2 tablets by mouth three times daily. ezetimibe (ZETIA) 10 mg tablet Take 1 tablet by mouth once daily. Tadalafil (CIALIS) 10 mg tablet Take one pill 30-60 minutes prior to sexual activity as needed (Patient not taking: Reported on 04/19/2023) escitalopram oxalate (LEXAPRO) 20 mg tablet TAKE 1 TABLET BY MOUTH ONCE DAILY apixaban (ELIQUIS) 5 mg tab(s) TAKE ONE (1) TABLET BY MOUTH TWICE DAILY atorvastatin (LIPITOR) 40 mg tablet TAKE 1 TABLET BY MOUTH ONCE DAILY famotidine (PEPCID) 20 mg tablet TAKE 1 TABLET BY MOUTH AT BEDTIME NEEDED amiodarone (PACERONE) 100 mg tablet TAKE 1 TABLET BY MOUTH ONCE DAILY *DO NOT TAKE IF HEART RATE ISLESS THAN 40* losartan (COZAAR) 25 mg tablet take 1 tablet by mouth once daily metoprolol tartrate, short acting, (LOPRESSOR) 25 mg tablet Take 0.5 tablets by mouth twice daily. Hold if heart rate is less than 60 tiotropium bromide (SPIRIVA RESPIMAT) 2.5 mcg/actuation inhaler Inhale as instructed. (Patient not taking: Reported on 04/19/2023) miconazole (MONISTAT-DERM,LANCE) 2 % cream Apply to affected area twice daily. traZODone (DESYREL) 100 mg tablet Take 1 tablet by mouth daily at bedtime. Blood Pressure Monitor kit 1 application twice daily. Measure patient for correct size. Patient needs cuff for left arm readings. COMPOUNDED PRESCRIPTION Articulating AFO foot brace for right leg. Send to [employer]. Dx: I63.9 COMPOUNDED PRESCRIPTION EMBER WALKER DX I63.9 weight 162 # (Patient not taking: Reported on 04/19/2023) Diaper,Brief, Adult,Disposable (DEPEND REAL FIT BRIEF MEN L/XL) misc 1 Each as needed. Blood Pressure Monitor kit 1 Kit once daily. Please measure patient for correct size. Current Facility-Administered Medications on File Prior to Visit Medication perflutren lipid microspheres 1.3 mL in NaCl (PF) 0.9% 10 mL injection (DEFINITY) sodium chloride 0.9 % (flush) 10 mL (BD POSIFLUSH) Social History Social History Tobacco Use Smoking status: Former Packs/day: 2.00 Years: 45.00 Additional pack years: 0.00 Total pack years: 90.00 Types: Cigarettes Quit date: 07/08/2016 Years since quittin.9 Smokeless tobacco: Never Tobacco comments: 07/08/2016 Vaping Use Vaping Use: Never used Substance Use Topics Alcohol use: No Drug use: Never EXAM: BP 116/66 (BP Site: Left Arm, BP Position: Sitting, BP Cuff Size: Regular Adult) Pulse 60 Resp 16 Wt 85.7 kg (189 lb) BMI 27.12 kg/m General Appearance: Well appearing, alert, in no acute distress, well-hydrated, well nourished and using a cane. Did come in wheelchair today Lungs: Lungs clear to auscultation. No wheezing, rhonchi, rales.. Heart: RRR without murmur, gallop, or rubs. No ectopy. Health Maintenance List Abdominal Aortic Aneurysm Screening Never done Hepatitis C Screening Never done Alpha-1 Antitrypsin Deficiency Screening Never done Lung Cancer Screening Never done Shingrix Vaccine(1 of 2) Never done Prostate Cancer Screening Discussion due on 06/03/2015 Advance Directive Discussion Never done Depression Assessment Never done Covid-19 Vaccine() due on 04/05/2023 LDL Cholesterol due on 12/14/2023 Colorectal Cancer Screening due on 04/10/2024 Annual PCP Team Chronic Disease Visit due on 04/19/2024 BP Controlled (<130/80) due on 05/21/2024 Serum Creatinine due on 06/06/2024 Diabetes Screening due on 06/06/2026 Lipid Screening due on 12/14/2027 DTaP,Tdap,Td Vaccine(2 - Td or Tdap) due on 05/10/2031 Spirometry Completed Influenza Vaccine Completed RSV Vaccine Completed Pneumococcal Vaccine: 65+ Completed Data reviewed Results Only on 06/06/2023 Component Date Value Cholesterol, Total 06/06/2023 130 Triglyceride 06/06/2023 193 (H) HDL Cholesterol 06/06/2023 37 (L) Non HDL Cholesterol 06/06/2023 93 Fasting Time 06/06/2023 12 VLDL Cholesterol 06/06/2023 39 (H) TC:HDL Ratio 06/06/2023 3.51 LDL Cholesterol 06/06/2023 54 LDL:HDL Ratio 06/06/2023 1.46 WBC 06/06/2023 12.38 (H) RBC 06/06/2023 4.25 Hemoglobin 06/06/2023 11.5 (L) Hematocrit 06/06/2023 36.8 (L) MCV 06/06/2023 86.6 MCH 06/06/2023 27.1 MCHC 06/06/2023 31.3 RDW-CV 06/06/2023 18.0 (H) Platelet Count 06/06/2023 263 MPV 06/06/2023 10.8 Neutrophils % 06/06/2023 65.7 Abs Neut 06/06/2023 8.14 (H) Lymphocytes % 06/06/2023 15.7 Abs Lymph 06/06/2023 1.94 Monocytes % 06/06/2023 9.9 Abs [place] 06/06/2023 1.23 (H) Eosinophils % 06/06/2023 6.9 Abs Eosin 06/06/2023 0.85 (H) Basophils % 06/06/2023 0.8 Abs Baso 06/06/2023 0.10 Immature Granulocytes % 06/06/2023 1.0 Abs Immature Gran 06/06/2023 0.12 (H) NRBC 06/06/2023 0.0 Absolute nRBC 06/06/2023 <0.01 Diff Type 06/06/2023 Auto Protein, Total 06/06/2023 6.5 Albumin 06/06/2023 4.0 Calcium, Total 06/06/2023 8.5 Bilirubin, Total 06/06/2023 0.4 Alkaline Phosphatase 06/06/2023 112 AST 06/06/2023 14 ALT 06/06/2023 16 Glucose 06/06/2023 92 BUN 06/06/2023 18 Creatinine 06/06/2023 1.25 (H) Sodium 06/06/2023 140 Potassium 06/06/2023 4.0 Chloride 06/06/2023 104 CO2 06/06/2023 24 Anion Gap 06/06/2023 12 Estimated Glomerular Marco Antonio* 06/06/2023 63 Ferritin 06/06/2023 38.1 Iron 06/06/2023 39 (L) TIBC 06/06/2023 343 Transferrin Saturation 06/06/2023 11.4 (L) Appointment on 05/22/2023 Component Date Value CEA 05/22/2023 1.0 Glucose 05/22/2023 93 BUN 05/22/2023 17 Creatinine 05/22/2023 1.30 (H) Sodium 05/22/2023 142 Potassium 05/22/2023 4.4 Chloride 05/22/2023 105 CO2 05/22/2023 24 Anion Gap 05/22/2023 13 Calcium, Total 05/22/2023 9.3 Estimated Glomerular Marco Antonio* 05/22/2023 60 Results Only on 05/15/2023 Component Date Value Residential Carpenter 05/15/2023 Value:Provider WALKER your patient AFSHIN ZEE has been assigned their Digna program. The date to complete this order is 06-29-2023 The Digna program is: PATIENT SAFETY AND FALL PREVENTION The patient access code to view the Digna program is: [id number] To view the Digna program go to: [email or web address] Appointment on 05/09/2023 Component Date Value Protein, Total 05/09/2023 5.9 (L) Albumin 05/09/2023 3.8 (L) Calcium, Total 05/09/2023 8.6 Bilirubin, Total 05/09/2023 0.4 Alkaline Phosphatase 05/09/2023 96 AST 05/09/2023 15 ALT 05/09/2023 12 Glucose 05/09/2023 96 BUN 05/09/2023 17 Creatinine 05/09/2023 1.34 (H) Sodium 05/09/2023 141 Potassium 05/09/2023 4.2 Chloride 05/09/2023 108 (H) CO2 05/09/2023 23 Anion Gap 05/09/2023 10 Estimated Glomerular Marco Antonio* 05/09/2023 58 (L) Hemoglobin A1C 05/09/2023 4.7 Estimated Average Glucose 05/09/2023 88 WBC 05/09/2023 9.57 RBC 05/09/2023 3.90 (L) Hemoglobin 05/09/2023 10.1 (L) Hematocrit 05/09/2023 33.5 (L) MCV 05/09/2023 85.9 MCH 05/09/2023 25.9 (L) MCHC 05/09/2023 30.1 (L) RDW-CV 05/09/2023 19.5 (H) Platelet Count 05/09/2023 258 MPV 05/09/2023 12.0 Neutrophils % 05/09/2023 64.1 Abs Neut 05/09/2023 6.12 Lymphocytes % 05/09/2023 16.6 Abs Lymph 05/09/2023 1.59 Monocytes % 05/09/2023 7.9 Abs [place] 05/09/2023 0.76 Eosinophils % 05/09/2023 10.2 Abs Eosin 05/09/2023 0.98 (H) Basophils % 05/09/2023 0.7 Abs Baso 05/09/2023 0.07 Immature Granulocytes % 05/09/2023 0.5 Abs Immature Gran 05/09/2023 0.05 NRBC 05/09/2023 0.0 Absolute nRBC 05/09/2023 <0.01 Diff Type 05/09/2023 Auto Appointment on 04/19/2023 Component Date Value WBC 04/19/2023 10.39 RBC 04/19/2023 3.84 (L) Hemoglobin 04/19/2023 9.6 (L) Hematocrit 04/19/2023 33.3 (L) MCV 04/19/2023 86.7 MCH 04/19/2023 25.0 (L) MCHC 04/19/2023 28.8 (L) RDW-CV 04/19/2023 15.8 (H) Platelet Count 04/19/2023 462 (H) MPV 04/19/2023 11.3 Neutrophils % 04/19/2023 68.5 Abs Neut 04/19/2023 7.12 Lymphocytes % 04/19/2023 14.9 Abs Lymph 04/19/2023 1.55 Monocytes % 04/19/2023 9.8 Abs [place] 04/19/2023 1.02 (H) Eosinophils % 04/19/2023 5.0 Abs Eosin 04/19/2023 0.52 (H) Basophils % 04/19/2023 1.2 Abs Baso 04/19/2023 0.12 (H) Immature Granulocytes % 04/19/2023 0.6 Abs Immature Gran 04/19/2023 0.06 NRBC 04/19/2023 0.0 Absolute nRBC 04/19/2023 <0.01 Diff Type 04/19/2023 Auto Iron 04/19/2023 25 (L) TIBC 04/19/2023 459 (H) Transferrin Saturation 04/19/2023 5.4 (L) Ferritin 04/19/2023 16.8 (L) ASSESSMENT/PLAN: 1. Anxiety - ICD9: 300.00, ICD10: F41.9 (primary diagnosis) - Stable - Decrease amount of Ativan per month due to using only 8-10 per month. 2. Depression, unspecified depression type - ICD9: 311, ICD10: F32.A - Stable - Continue current medication regimen. 3. Essential hypertension - ICD9: 401.9, ICD10: I10 - Controlled - Continue current medications - Recommend home blood pressure monitoring, to bring results to next visit - Encouraged sodium restriction, DASH or Mediterranean diet - Recommend regular aerobic exercise 4. Hyperlipidemia, unspecified hyperlipidemia type - ICD9: 272.4, ICD10: E78.5 - Controlled - Continue current medications - Counseled on healthy diet and regular exercise 5. Elevated glucose - ICD9: 790.29, ICD10: R73.09 - Stable 6. Cerebrovascular accident (CVA), unspecified mechanism (HCC) - ICD9: 434.91, ICD10: I63.9 - Stable - Continue current medication regimen. 7. Right hemiplegia (HCC) - ICD9: 342.90, ICD10: G81.91 - Stable, still doing therapy 8. Aphasia as late effect of cerebrovascular accident - ICD9: 438.11, ICD10: I69.320 - Stable 9. Coronary artery disease involving [place] coronary artery of [place] heart without angina pectoris- ICD9: 414.01, ICD10: I25.10 - Stable - Continue current medication regimen. 10. Paroxysmal atrial fibrillation (HCC) - ICD9: 427.31, ICD10: I48.0 - Stable - Continue current medication regimen. - Cont f/u with Cardio 11. Iron deficiency anemia due to chronic blood loss - ICD9: 280.0, ICD10: D50.0 - Levels stable - Continue current medication regimen. 12. Erectile dysfunction, unspecified erectile dysfunction type - ICD9: 607.84, ICD10: N52.9 - Stable with medication - Continue current medication regimen. 13. Chronic obstructive pulmonary disease, unspecified COPD type (HCC) - ICD9: 496, ICD10: J44.9 - Overall stable. - Continue current medication regimen. - Cont f/u with Pulm 14. Need for vaccination - ICD9: V05.9, ICD10: Z23 - Receive Covid vaccine in office today 3 mo f/u with labs. I agree with the Chief Complaint, ROS, and Past Histories independently gathered by the clinical technical support technician and the remaining scribed note accurately describes my personal service to the patient. Medical Decision Making: Problems: Moderate: 2+ stable chronic illnesses Data: Unique test result(s) reviewed: 3+ Unique test(s) ordered: 3+ Risk: Moderate: Drug management Medical Decision Making Level: 4 - Moderate Jaci Arroyo MD The documentation for this note was completed by Rachel Buckley Ma acting as scribe for Jaci Arroyo MD. June 11, 2023 3:07 PM. Rachel Buckley Ma documented in this encounterProtestant Hospital11-03-2023 Miscellaneous Notes* Telephone Encounter - Loida Vazquez LPN - 06/07/2023 1:50 PM EDT Patient Eli returned call and went over results, notes from Mariano Beckman FOIL WRAPPER with understanding. * Telephone Encounter - Therese Paz LPN - 06/07/2023 1:16 PM EDT Left a message for to call back. Theerse Paz LPN * Telephone Encounter - Mariano Beckman APRN.CNP - 06/07/2023 7:42 AM EDT Please let the patient know that his blood counts have improved. He is less anemic at this point. Iwould continue with upcoming visit with Dr. Arroyo to discuss further plan. Mariano Beckman APRN.CNP documented in this encounterProtestant Hospital10-26-2023 Miscellaneous Notes* Telephone Encounter - Dixie Naranjo RN - 05/30/2023 5:59 PM EDT Spoke with patient's . Given message from provider's office. She verbalizes understanding. She states patient was able to obtain oxygen concentrator for overnight stay. Dixie Naranjo RN * Telephone Encounter - Monica Cruz Ma - 05/30/2023 4:27 PM EDT Message left for pt Eli to call back. Monica Cruz Ma * Telephone Encounter - Jaci Arroyo MD - 05/30/2023 4:24 PM EDT If he is feeling OK, not dizzy or weak, then the BP is fine. He would probably be OK to go one night without oxygen; he may get short of breath, but I would lotexpect any retirement consequences. Jaci Arroyo MD * Telephone Encounter - Amaya Kessler RN - 05/28/2023 12:54 PM EDT Patient's Eli calling with an additional question to previous note below. States pt's blood pressure today is 100/51 with a pulse of 50. She states pt is feeling fine. Asymptomatic. Eli asking for Dr. Arroyo to let her know if this BP is ok for Afshin? Please call Eli with response to previous note below also. Thank you. * Telephone Encounter - Amaya Kessler RN - 05/27/2023 4:47 PM EDT Pt's calling with a question for Dr. Arroyo. Patient and plan to stay overnight in [place] this Saturday. states pt wears 4 liters of oxygen every night. No oxygen during day. states she does not feel comfortable travelingwith pt's oxygen tanks or with his electronic concentrator (too big and heavy) and asking if pt would be okay not wearing any oxygen Saturday night, for one night? Please advise . Thank you. documented in this encounterProtestant Hospital10-24-2023 Miscellaneous Notes* Telephone Encounter - Gaye Rowley RN - 05/28/2023 10:15 AM EDT Mri scheduled with Pt .Gaye Rowley RN documented in this encounterProtestant Hospital10-24-2023 Miscellaneous Notes* Telephone Encounter - Deanne Neville LPN - 05/28/2023 8:50 AM EDT Detailed message left for Eli. We do not recommend patient goes without oxygen during their trip.Would advise they contact their DME to see if something portable is available for rent during theirtravel or to call the branch nearest their destination to see if a concentrator can be delivered totheir hotel/overnight accomodation. Deanne Neville LPN * Telephone Encounter - Meka Warner - 05/27/2023 4:52 PM EDT Pt's calling with a question for Dr. Mcgrath. Patient and plan to stay overnight in [place] this Saturday. states pt wears 4 liters of oxygen every night. No oxygen during day. states she does not feel comfortable travelingwith pt's oxygen tanks or with his electronic concentrator (too big and heavy) and asking if pt would be okay not wearing any oxygen Saturday night, for one night? Please advise . Meka Warner MA documented in this encounterProtestant Hospital10-17-2023 History of Present illness Narrative* Jorge Cardoso MD - 05/21/2023 3:45 PM EDT FOLLOW UP VISIT - ENDOSCOPY NAME: Afshin [facility] NO.: [id number] DATE OF SERVICE: 05/21/2023 : 1955 REFERRING PHYSICIAN: Jaci Arroyo MD Afshin is a patient I am following for iron deficiency anemia. The patient is a 67 year old male referred for endoscopy. The patient had a previous supravascular accident which makes oral communication difficult and the patient becomes excited when trying to communicate. He is present with his . The patient is currently undergoing rehab at [facility]. He was found to have a significant of blood in his stool. The patient presented to [facility] emergency department on March 21, 2023. She had obtained a new motorized scooter and fell out of the scooter landing on his right side. CT scan of the headwas unremarkable. He returned to the emergency department on the after having an additional 2 falls. At that time laboratory studies were obtained and the patient was found to have anemia with ahemoglobin of 6.5. He was given 2 units of packed red cells his hemoglobin improved to 9.6. Notation from the discharge summary for hospital states that he declined endoscopy at that time. The patient has a history of previous peptic ulcer disease and hemorrhoids. The patient is waswith him at [facility] and went to give him a shower and noted bright red blood in the bathroom. Hemoglobin apparently at [facility] was checked 2 days previously and was maintained at 9. I performed upper and lower endoscopy on April 10, 2023. The patient was found to have: Upper endoscopy impression: - Normal examined jejunum. - Normal third portion of the duodenum. - Duodenitis. - Gastritis. Biopsied. - Non-severe reflux esophagitis. Lower endoscopy Impression: - One 6 mm polyp at the hepatic flexure, removed with a cold snare. Resected and retrieved. Clips (MR conditional) were placed. - Diverticulosis in the left colon. - Rule out malignancy, partially obstructing tumor at 15 cm proximal to the anus. Biopsied. - The examination was otherwise normal on direct and retroflexion views. Pathology demonstrated: FINAL DIAGNOSIS A. Stomach, antrum, biopsy: - Gastric antral mucosa with reactive epithelial changes. - No morphologic evidence of Helicobacter pylori organisms. B. Colon, hepatic flexure, polyp, polypectomy: - Tubular adenoma. C. Rectum, mass, biopsy: - Superficial fragments of tubular adenoma (see comment). The patient notes some continued issues with bleeding procedure. This seemed to be less bleeding that he was having prior to endoscopy. The patient has a follow-up visit scheduled with Dr. Sandoval given the long location of his rectal mass at approximately 10 to 15 cm. VITALS: There were no vitals taken for this visit. On examination, the abdomen is benign. Assessment IMPRESSION: Rectal bleeding, anemia, larger polyp returned as adenomatous polyp but suspicious for high-grade lesion or possibly even invasive carcinoma PLAN: II have ordered a CEA level and a CT scan of the abdomen pelvis. I will forward this information toDr. Sandoval Diagnoses: (D50.0) Iron deficiency anemia due to chronic blood loss (primary encounter diagnosis) Return to Clinic: The patient is instructed to follow-up with me as needed. Jorge Cardoso MD documented in this encounterProtestant Hospital10-10-2023 History of Present illness Narrative* Bowen Hernandez - 05/14/2023 3:29 PM EDT Initial Podiatric Office Visit: Chief Complaint: This 67 year old male who presents with chief complaint:painful left 2nd toenail HPI Patient presents to clinic for evaluation of b/l feet. He complains of pain to left 2nd toenail He is requesting nail debridement. PAIN EVALUATION No data found in the last 1 encounters. Hemoglobin A1C (%) Date Value 05/09/2023 4.7 10/22/2016 4.9 PCP: Jaci Arroyo MD PAST MEDICAL HISTORY Diagnosis Date Acute cerebral infarction (HCC) left LEANN (acute kidney injury) (HCC) Anemia Aneurysm (HCC) Anxiety state Atrial fibrillation ([facility]) 11/2016 Balanitis CAD (coronary artery disease) Carotid stenosis COPD (chronic obstructive pulmonary disease) ([facility]) Dysphasia Emphysema lung ([facility]) History of blood transfusion 03/2023 Hypertension Hypoxia 03/2023 DARON (obstructive sleep apnea) PVD (peripheral vascular disease) ([facility]) Respiratory failure ([facility]) hypoxic-ventilator dependent Stroke (cerebrum) ([facility]) Tobacco abuse Current Outpatient Medications Medication Sig albuterol (PROVENTIL) 2.5 mg /3 mL (0.083 %) nebulizer solution Use 3 mL via nebulizer every 4 hours as needed for wheezing/shortness of breath. Use over 5-15minutes. albuterol HFA (PROVENTIL HFA, VENTOLIN HFA) 90 mcg/actuation inhaler Inhale 2 Puffs as instructed every 4 hours as needed. amiodarone (PACERONE) 100 mg tablet TAKE 1 TABLET BY MOUTH ONCE DAILY *DO NOT TAKE IF HEART RATE ISLESS THAN 40* amLODIPine (NORVASC) 10 mg tablet Take 0.5 tablets by mouth twice daily. Take 1/2 tablet twice daily apixaban (ELIQUIS) 5 mg tab(s) TAKE ONE (1) TABLET BY MOUTH TWICE DAILY aspirin, enteric coated (ASPIRIN, ENTERIC COATED) 81 mg EC tablet Take 81 mg by mouth once daily. atorvastatin (LIPITOR) 40 mg tablet TAKE 1 TABLET BY MOUTH ONCE DAILY baclofen 10 mg tablet TAKE 1/2 TABLET BY MOUTH THREE TIMES A DAY Blood Pressure Monitor kit 1 Kit once daily. Please measure patient for correct size. Blood Pressure Monitor kit 1 application twice daily. Measure patient for correct size. Patient needs cuff for left arm readings. busPIRone (BUSPAR) 10 mg tablet Take 1 tablet by mouth three times daily. clopidogrel (PLAVIX) 75 mg tablet TAKE 1 TABLET BY MOUTH ONCE DAILY *EMERGENCY REFILL* (Patient nottaking: Reported on 04/19/2023) COMPOUNDED PRESCRIPTION EMBER WALKER DX I63.9 weight 162 # (Patient not taking: Reported on 04/19/2023) COMPOUNDED PRESCRIPTION Articulating AFO foot brace for right leg. Send to [employer]. Dx: I63.9 Diaper,Brief, Adult,Disposable (DEPEND REAL FIT BRIEF MEN L/XL) misc 1 Each as needed. escitalopram oxalate (LEXAPRO) 20 mg tablet TAKE 1 TABLET BY MOUTH ONCE DAILY ezetimibe (ZETIA) 10 mg tablet Take 1 tablet by mouth once daily. famotidine (PEPCID) 20 mg tablet TAKE 1 TABLET BY MOUTH AT BEDTIME NEEDED ferrous sulfate 325 mg (65 mg iron) tablet Take 1 tablet by mouth every other day. fluticasone (FLONASE) 50 mcg/actuation nasal spray Use 1 [place] in each nostril twice daily. Rinse mouth after use. LORazepam (ATIVAN) 0.5 mg Take 1-2 tablets by mouth three times daily as needed for up to 90 days. losartan (COZAAR) 25 mg tablet take 1 tablet by mouth once daily metoprolol tartrate, short acting, (LOPRESSOR) 25 mg tablet Take 0.5 tablets by mouth twice daily. Hold if heart rate is less than 60 miconazole (MONISTAT-DERM,LANCE) 2 % cream Apply to affected area twice daily. multivitamin tablet Take 1 tablet by mouth once daily. potassium chloride (K-TAB) 10 mEq tablet Take 2 tablets by mouth three times daily. Tadalafil (CIALIS) 10 mg tablet Take one pill 30-60 minutes prior to sexual activity as needed (Patient not taking: Reported on 04/19/2023) tiotropium bromide (SPIRIVA RESPIMAT) 2.5 mcg/actuation inhaler Inhale as instructed. (Patient not taking: Reported on 04/19/2023) tiotropium-olodaterol (STIOLTO RESPIMAT) 2.5-2.5 mcg/actuation Inhale 2 Puffs as instructed once daily. traZODone (DESYREL) 100 mg tablet Take 1 tablet by mouth daily at bedtime. Current Facility-Administered Medications Medication Dose Route Frequency perflutren lipid microspheres 1.3 mL in NaCl (PF) 0.9% 10 mL injection (DEFINITY) INTRAVENOUS DIRECTED PRN sodium chloride 0.9 % (flush) 10 mL (BD POSIFLUSH) 10 mL INTRAVENOUS DIRECTED PRN ALLERGIES Allergen Reactions Doxycycline GI Upset GI upset (stomach ache/cramping/diarrhea) and splotchy face Sulfate Salt Hives Zpak [Azithromycin] Hives Lisinopril Swelling Lip swelling after starting lisinopril. PAST SURGICAL HISTORY Procedure Laterality Date CABG CONSULT 10/30/2016 multi vessel EGD W/O RUST SPEC VARICIES INJ 04/11/2023 HEART CATHETERIZATION 09/17/2016 TRACHEOSTOMY HX FAMILY HISTORY Problem Relation Age of Onset Heart Mother CO in her 70s, pacemaker Diabetes Mother Stroke Father other (AAA) Father other (CAD) Brother Hypertension Brother Social History Tobacco Use Smoking status: Former Packs/day: 2.00 Years: 45.00 Additional pack years: 0.00 Total pack years: 90.00 Types: Cigarettes Quit date: 07/08/2016 Years since quittin.8 Smokeless tobacco: Never Tobacco comments: 07/08/2016 Vaping Use Vaping Use: Never used Substance Use Topics Alcohol use: No Drug use: Never REVIEW OF SYSTEMS GENERAL: Negative for Malaise, significant weight loss, fever RESPIRATORY: Negative for cough, wheezing and shortness of breath CARDIOVASCULAR: Negative for chest pain, leg swelling and palpitations GI: Negative for abdominal discomfort, blood in stools or black stools and change in bowel habits : Negative for dysuria, frequency and incontinence MUSCULOSKELETAL: Negative for joint pain or swelling, back pain, and muscle pain. SKIN: Negative for lesions, rash, and itching. HEMATOLOGY/LYMPHOLOGY Negative for prolonged bleeding, bruising easily, and swollen nodes. ENDOCRINE: Negative for cold or heat intolerance, polyuria, polydipsia and goiter. NEURO: negative Physical Exam: Constitutional: Pt is a well developed 67 year old male who is alert, oriented and cooperative Eyes: Following during examination. No redness or drainage. Respiratory: RR normal and nonlabored. Even breathing. No evidence of distress or shortness of breath. Psychology: Patient is engaged during conversation. Normal affect and mood. Does not appear depressed or anxious during encounter. Vascular: Dorsalis pedis and posterior tibial pulses faintly palpable as b/l Capillary Fill time < 5 seconds to digits 1-5 b/l Skin temperature warm to warm proximal to distal b/l Hair growth present to digits Neurological: intact light touch/epicritic sensation Vibratory sensation intact to hallux b/l intact protective sensation no significant neurological deficits Dermatological: Nails 1-5 b/l appear elongated, thick, painful. Webspaces clean and dry 1-4 b/l. Skin appears well hydrated and supple. good color, texture, turgor. No open lesions present. No callosities present. Musculoskeletal/Orthopaedic: Patient has pain to palpation of left 2nd toenail Radiographs: n/a ASSESSMENT: (B35.1) Onychomycosis (primary encounter diagnosis) (M79.675) Pain in toe of left foot (M79.674) Pain in toe of right foot PLAN: 1. History and physical examination performed. 2. Toenails 1-5 b/l debrided in length and thickness 3. F/u in 3-4 months Bowen Hernandez DPM Podiatry [address] [facility] [address] Dept: [phone] Dept * Isabel Dill LPN - 05/14/2023 3:09 PM EDT AMB ROOMING INTAKE FLOWSHEET DATA Risk Screening Do you have concerns about personal safety or safety in the home?: No Patient presents with: Left Foot - Established Patient, nail care Right Foot - Established Patient, nail care Isabel Dill LPN documented in this encounterProtestant Hospital10-09-2023 Miscellaneous Notes* Telephone Encounter - Kia Waters LPN - 05/13/2023 3:05 PM EDT Eli called. Verified name and date of . Eli aware of results/orders. Verbalized unserstanding but states she is not waiting until next summer for CT to be done. Eli states that she is going to take her to [facility] now instead of waiting until February [address] Doug Mcgrath and to follow up with Dr. Doug Mcgrath then on May 29, [address] results. Concerned about his lungs. Eli will call [facility] to let Dr. Mcgrath know to check system for CT. Kia Waters LPN * Telephone Encounter - Deanne Neville LPN - 05/13/2023 2:35 PM EDT Overnight oximetry showed desaturations on 2L of O2. Per WENCESLAO, will increase to 4LPM at night. Regarding Chest CT: Patient will be due for lung cancer screening CT in February of 2024. Patient has afollow up with Dr. Mcgrath in June, and she will discuss Lung Cancer Screening/CT at that time. Left message for Eli to call. Deanne Neville LPN * Telephone Encounter - Deanne Neville LPN - 05/13/2023 10:03 AM EDT Per GLENNY 03/12/23 Assessment/Plan: Centrilobular emphysema -Restart inhaled therapy. Changed to Stiolto Respimat with albuterol as needed rather than scheduled -He will remain tobacco free -Nocturnal oxygen assessment on 6 L -Refilled prescription for liquid albuterol Former cigarette smoker -Former 01-chey-wpmd smoker having quit in 2015 with sequelae of emphysema -Patient qualifies for lung cancer screening but would not be due until January 2024. Will make referral at next visit (Patient has follow up visit 09/16/23) Old CVA, hemiparesis -Patient in therapy Received oximetry result on 6L this morning. On WENCESLAO desk for review. Deanne Neville LPN * Telephone Encounter - Therese Casas - 05/13/2023 9:37 AM EDT Pt's calling to see if there is an order for CT Chest for him or if there was a CT chest done recently. Looking at [facility], there is not an order or recent study that I can see from [facility]. 05/07/[address] chest WO contrast at [facility]. She has questions and she would like to speak directly to Dr. Mcgrath's nurse. GLENNY 03/12/2023. Therese Casas MA documented in this encounterProtestant Hospital10-09-2023 History of Present illness Narrative* Meka Lindsey PA-C - 05/13/2023 2:34 PM EDT Nocturnal Oximetry, 2L, 05/08/2023 Recording interval: 9:39:17 High pulse: 71 Low pulse: 40 Highest spO2: 98% Lowest spO2: 82% Time with spO2 < 88%: 2:04:42 Recommendation: Based on above results, patient is requiring more than 2L. Will re-check nocturnal oximetry on 4L. I have received and reviewed the outside records noted above. Meka Lindsey PA-C [facility] [place] documented in this encounterProtestant Hospital10-05-2023 Miscellaneous Notes* Telephone Encounter - Amaya Kessler RN - 05/09/2023 4:00 PM EDT Pt's spouse returned call and given provider's message below. Amaya Kessler RN * Telephone Encounter - Kassandra Tai LPN - 05/09/2023 2:46 PM EDT TC to pt. LM to call office, ask for triage nurse to get results. Kassandra Tai LPN * Telephone Encounter - Jessie Harmon APRN.CNP - 05/09/2023 2:41 PM EDT Can you please call the patient and and let them know that I reviewed his lab results. CBC hasactually improved since they were last completed 2 weeks ago. There is no signs that he needs a transfusion at this time. He can continue the Eliquis as prescribed. Still plan to follow-up with Dr. Devlin. Please let me know if they have any questions. Thank you. Jessie Harmon APRN.ESTELLA * Telephone Encounter - Khris Gutierrez RN - 05/09/2023 1:27 PM EDT Pts called in asking for lab results: Hemoglobin 13.0 - 17.0 g/dL 10.1 Low 9.6 Low 12.6 Low 13.1 15.1 12.6 Low Hematocrit 39.0 - 51.0 % 33.5 Low 33.3 Low 39.1 39.8 45.4 42.3 38.3 Low R She was asking if Pt should still hold his Eliquis for 3 days. I said FOIL WRAPPER had not responded back since the labs have come back in. Pts hung up. * Telephone Encounter - Kassandra Tai LPN - 05/09/2023 12:13 PM EDT Patient notified of updates, verbalizes understanding of instructions. Spoke with FOIL WRAPPER She stated to hold Eliquis for 3 days or until she can see the lab results. stated she understood. Kassandra Tai LPN * Telephone Encounter - Jessie Harmon APRN.CNP - 05/09/2023 12:09 PM EDT Can you please call the patient and and let them know that I have added on the CBC lab order. If he is having active rectal bleeding that will not stop he needs to go to the ER for further evaluation. Please let me know if they have any questions. Thank you. Jessie Harmon APRN.ESTELLA * Telephone Encounter - Milan Brunson RN - 05/09/2023 11:41 AM EDT reports patient is having rectal bleeding, light in color, had blood transfusion a couple months ago. Reports patient gave blood on [address] today, and needs pcp to put order in for hemoglobin stat. Says lab told her if pcp gets it in soon, they can use the blood they took today. Pended CBC + diff. Please phone to let her know this was done. [phone] * Telephone Encounter - Khris Gutierrez RN - 05/09/2023 9:24 AM EDT Nenita nurse with [facility] called in and reports Pts called her and said that they wouldn't be able to keep appointment with her today. The reported that Pt had more rectal bleeding, so she had to take him in to get his labs done and see if he was going to need another blood transfusion.She just needed to let provider know she would be missing a visit this week. documented in this encounterProtestant Hospital10-03-2023 Miscellaneous Notes* Telephone Encounter - Rachel Buckley Ma - 05/07/2023 9:26 AM EDT Type of form: DME Orders from [facility]. Resting hand splint and carrot orthotic ofr right hand associated with hemiplegia. Form received via fax When form is completed, Fax form to [phone] Form has been forwarded to Physician Desk: Dr. Cruz Buckley Ma documented in this encounterProtestant Hospital09-18-2023 Miscellaneous Notes* Telephone Encounter - Christina Ozuna MA - 04/22/2023 11:32 AM EDT Patient's spouse notified of results, verbalizes understanding of instructions. Christina Ozuna MA * Telephone Encounter - Mariano Beckman APRN.CNP - 04/22/2023 11:20 AM EDT Okay let's start with every other day. Mariano Beckman APRN.CNP * Telephone Encounter - Christina Ozuna MA - 04/22/2023 10:33 AM EDT Patient's spouse Eli notified of results, verbalizes understanding of instructions. Spouse concerned about the daily Iron causing constipation d/t patient's dx of anal mass. Spouse questions if patient should just take iron tablet every other day? Please advise. Christina Ozuna MA * Telephone Encounter - Mariano Beckman APRN.CNP - 04/22/2023 7:07 AM EDT Please let the patient know that his hemoglobin is stable at 9.6. At [place] on April 03 it was 9.0. He appears to have the ability to take on some more iron as his storage levels are low, total iron is low. I called in once daily iron tablets for him. If he becomes constipated we can have him start taking every other day. I placed blood work to be repeated prior to seeing Dr. Arroyo in June. The following approved medication requests have been transmitted electronically. Requested Prescriptions Signed Prescriptions Disp Refills ferrous sulfate 325 mg (65 mg iron) tablet 30 tablet 3 Sig: Take 1 tablet by mouth once daily. Authorizing Provider: MARIANO BECKMAN APRN.CNP documented in this encounterProtestant Hospital09-15-2023 Instructions* Patient Instructions* Mariano Beckman APRN.CNP - 04/19/2023 12:24 PM EDT Donell Sandoval MD A: [phone] Check Labs Return to see Dr. Arroyo as scheduled. Mariano Beckman APRN.CNP documented in this encounterProtestant Hospital09-15-2023 History of Present illness Narrative* Mariano Beckman APRN.CNP - 04/19/2023 12:00 PM EDT Chief Complaint Patient presents with: ER F/U: [place] [facility] 03/17/23-03/27/23 multiple falls, anemic at 6.5 & +occult stool; D/C to [facility] Afshin Zee is a 67 year old male who presents here today for SNF follow up discharge. Here with . Patient here for ER follow-up/senior living facility follow-up. Patient went to [facility] on March 21 for a fall, resulting in head injury. CT of the brain was done as well as chest x-ray and spine, normal. Iron and hemoglobin were low, given 2 units of packed red blood cells. Initial hemoglobin 6.5. After 2 units were given it improved to 9.6. Patient has a known history of peptic ulcer disease and hemorrhoids. On approximate 04/03, hemoglobin was checked at [facility] and was 9.0. Transfer to [facility] for strengthening. Patient was evaluated on April 05 by general surgery for his iron deficient anemia due to chronic blood loss. On April 10, had EGD and col onoscopy. Colonoscopy revealed sessile polyp which was removed. Dr. Ponce remarked on a frond-like/villous partially obstructing large mass which was found 15 cm proximal to the anus. 3 cm in length. Without bleeding. Biopsies taken. EGD was normal with exception of scattered minimal inflammation, erythema in the entire stomach and mild inflammation in the duodenal bulb. 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 Patient is being referred to for removal of the mass. Patient currently has home health in the form of senior living, PT, OT at home. At this time, patient is doing okay. He was previously having near blacked out episodes when he wasfollowing. No longer having this. states that he overall feels better. Has noticed a small amount of red blood in his stools at times. Nothing like previously. Admits that patient for the most part previously would not allow the to see his stools. Waiting to hear back from Dr. Diehl office. Past medical history, appointments, medications, allergies reviewed. EXAM: BP (!) 105/42 Pulse (!) 45 Temp 36.9 C (98.4 F) (Right Tympanic) Resp 16 Wt 76.7 kg (169 lb) SpO2 98% BMI 22.92 kg/m General Appearance: Well appearing, alert, in no acute distress, well-hydrated, well nourished.. Lungs: Lungs clear to auscultation. No wheezing, rhonchi, rales.. Heart: RRR without murmur, gallop, or rubs. No ectopy. ASSESSMENT/PLAN: 1. Iron deficiency anemia due to chronic blood loss - ICD9: 280.0, ICD10: D50.0 (primary diagnosis) -Check blood counts. Consider iron supplementation. - CBC + DIFF - IRON + TIBC - FERRITIN BLD 2. Fall, subsequent encounter - ICD9: V58.89, E888.9, ICD10: W19.XXXD - Continnue with home PHYSICAL THERAPY/OT/HH 3. Right hemiplegia (HCC) - ICD9: 342.90, ICD10: G81.91 - Continnue with home PHYSICAL THERAPY/OT/HH Mariano Beckman APRN.CNP RTO in 2 months as scheduled. This note was partly generated using [employer] voice recognition dictation and may contain some misspelled or inaccurate words missed on review. documented in this encounterProtestant Hospital09-11-2023 Miscellaneous Notes* Telephone Encounter - Khris Gutierrez RN - 04/15/2023 8:32 AM EDT Kia with [facility] called and is notified of providers message. She voices understanding. Khris Gutierrez RN * Telephone Encounter - Mariano Beckman APRN.CNP - 04/15/2023 8:27 AM EDT Please call Shraddha with [facility] to let her know that Dr. Arroyo's office is okay with the plan and will follow home healthcare orders. Mariano Beckman APRN.OPERATIONS LABEL CLERK * Telephone Encounter - Milan Brunson RN - 04/15/2023 8:18 AM EDT asking pcp office to give the verbal order to Shraddha, so that patient can start therapy in the home lucía. See message below. * Telephone Encounter - Raiza John RN - 04/12/2023 4:49 PM EDT Kia with [facility] calls to ask if provider with follow orders for SN, PT, and OT following discharge from [facility]. Kia request call back at [phone] with provider response. Raiza John RN documented in this encounterProtestant Hospital09-07-2023 Miscellaneous Notes* Telephone Encounter - Jorge Cardoso MD - 04/11/2023 7:27 PM EDT FOLLOW UP ENDOSCOPY - RESULTS AND RECOMMENDATIONS [id number] 1955 DATE: April 11, 2023 PRIMARY CARE PROVIDER: Jaci Arroyo MD Afshin Yangley is a patient referred for endoscopy for significant GI bleeding requiring transfusion admitted to [facility]. I performed upper and lower endoscopy on April 10, 2023. The patient was found to have: Upper Endoscopy Impression: - Normal examined jejunum. - Normal third portion of the duodenum. - Duodenitis. - Gastritis. Biopsied. - Non-severe reflux esophagitis. Lower Endoscopy Findings: The perianal and digital rectal examinations were normal. A 6 mm polyp was found in the hepatic flexure. The polyp was sessile. The polyp was removed with a cold snare. Resection and retrieval were complete. To prevent bleeding after the polypectomy, three hemostatic clips were successfully placed (MR conditional). There was no bleeding at the end of the procedure. A few small and large-mouthed diverticula were found in the left colon. A frond-like/villous partially obstructing large mass was found at 15 cm proximal to the anus. The mass was partially circumferential (involving one-third of the lumen circumference). The mass measured three cm in length. No bleeding was present. Biopsies were taken with a cold forceps for histology. The exam was otherwise without abnormality on direct and retroflexion views. Pathology demonstrated: A. Stomach, antrum, biopsy: - Gastric antral mucosa with reactive epithelial changes. - No morphologic evidence of Helicobacter pylori organisms. B. Colon, hepatic flexure, polyp, polypectomy: - Tubular adenoma. C. Rectum, mass, biopsy: - Superficial fragments of tubular adenoma (see comment). IMPRESSION: Mild gastritis duodenitis and esophagitis, small hepatic flexure polyp. Larger fungating tumor approximately two thirds circumference 15 cm from the rectum. PLAN: Recommend the patient continue his PPI. I forwarded my images and will forward this note to Dr. Devlin for consideration of transanal Endo surgery versus advanced endoscopic resection. The patient is instructed to follow-up with me when I return I have instructed my staff to forward the above information to the patient and to the appropriate providers documented in this encounterProtestant Hospital09-06-2023 Nurse Note* Kylie Galvez RN - 04/10/2023 3:04 PM EDT Call made to group home to give report. Gave report to RN. Also sent copy of instructions home with to give to group home. Pt being prepared for home. documented in this encounterProtestant Hospital09-06-2023 History and physical note * Jorge Cardoso MD - 04/10/2023 12:00 PM EDT UPDATED PROCEDURAL SEDATION HISTORY AND PHYSICAL EXAMINATION SERVICE DATE: 04/10/2023 SERVICE TIME: 12:17 PM PHYSICAL EXAM MUST BE COMPLETED ON ADMISSION PROCEDURE: Procedure Indications: The History and Physical (completed in the past 30 days) has been reviewed and the patient has beenexamined. The contents accurately reflect the patient's condition with the following additions or revisions since the H&P was completed. ASA Class: ASA Class:: Patient with severe systemic disease Examination indicates no changes. AIRWAY: Airway Visualization of Uvula: Yes Mouth opening greater than 2 fingerbreadths: Yes Neck Full Range of Motion: Yes LUNGS: Lungs clear to auscultation CARDIAC: Regular rhythm,Regular rate Provisional Diagnosis/Treatment Plan: anemia, Gi bleed - EGD and Colonoscopy SEDATION GOAL: Moderate This H&P can be found in the attached. SIGNATURE: Jorge Cardoso MD PATIENT NAME: Afshin Zee DATE: April 10, 2023 TIME: 12:16 PM Source Note - Jorge Cardoso MD - 04/10/2023 12:00 PM EDT Images from the original note were not included. HISTORY AND PHYSICAL Afshin Zee 1955 REFERRING PHYSICIAN: Jaci Arroyo MD CHIEF COMPLAINT: Consult (Iron deficency/ anemia) HPI: The patient is a 67 year old male referred for endoscopy. The patient had a previous supravascular accident which makes oral communication difficult and the patient becomes excited when trying to communicate. He is present with his . The patient is currently undergoing rehab at [facility]. He was found to have a significant of blood in his stool. The patient presented to [facility] emergency department on March 21, 2023. She had obtained a new motorized scooter and fell out of the scooter landing on his right side. CT scan of the headwas unremarkable. He returned to the emergency department on the after having an additional 2 falls. At that time laboratory studies were obtained and the patient was found to have anemia with ahemoglobin of 6.5. He was given 2 units of packed red cells his hemoglobin improved to 9.6. Notation from the discharge summary for hospital states that he declined endoscopy at that time. The patient has a history of previous peptic ulcer disease and hemorrhoids. The patient is waswith him at [facility] and went to give him a shower and noted bright red blood in the bathroom. Hemoglobin apparently at [facility] was checked 2 days previously and was maintained at 9. The patient is being seen by me today at the request of Dr. Jaci Arroyo MD for my opinion and advice regarding rectal bleeding and iron deficiency anemia. PAST MEDICAL HISTORY PAST MEDICAL HISTORY Diagnosis Date Acute cerebral infarction (HCC) left LEANN (acute kidney injury) (HCC) Anemia Aneurysm (HCC) Anxiety state Atrial fibrillation (HCC) 11/2016 Balanitis CAD (coronary artery disease) Carotid stenosis COPD (chronic obstructive pulmonary disease) ([facility]) Dysphasia Emphysema lung ([facility]) History of blood transfusion 03/2023 Hypertension Hypoxia 03/2023 DARON (obstructive sleep apnea) PVD (peripheral vascular disease) ([facility]) Respiratory failure (HCC) hypoxic-ventilator dependent Stroke (cerebrum) ([facility]) Tobacco abuse PAST SURGICAL HISTORY PAST SURGICAL HISTORY Procedure Laterality Date CABG CONSULT 10/30/2016 multi vessel HEART CATHETERIZATION 09/17/2016 TRACHEOSTOMY HX CURRENT MEDICATIONS Current Outpatient Medications Medication Sig baclofen 10 mg tablet TAKE 1/2 TABLET BY MOUTH THREE TIMES A DAY aspirin, enteric coated (ASPIRIN, ENTERIC COATED) 81 mg EC tablet Take 81 mg by mouth once daily. tiotropium-olodaterol (STIOLTO RESPIMAT) 2.5-2.5 mcg/actuation Inhale 2 Puffs as instructed once daily. albuterol (PROVENTIL) 2.5 mg /3 mL (0.083 %) nebulizer solution Use 3 mL via nebulizer every 4 hours as needed for wheezing/shortness of breath. Use over 5-15minutes. LORazepam (ATIVAN) 0.5 mg Take 1-2 tablets by mouth three times daily as needed for up to 90 days. amLODIPine (NORVASC) 10 mg tablet Take 0.5 tablets by mouth twice daily. Take 1/2 tablet twice daily fluticasone (FLONASE) 50 mcg/actuation nasal spray Use 1 [place] in each nostril twice daily. Rinse mouth after use. busPIRone (BUSPAR) 10 mg tablet Take 1 tablet by mouth three times daily. ezetimibe (ZETIA) 10 mg tablet Take 1 tablet by mouth once daily. escitalopram oxalate (LEXAPRO) 20 mg tablet TAKE 1 TABLET BY MOUTH ONCE DAILY apixaban (ELIQUIS) 5 mg tab(s) TAKE ONE (1) TABLET BY MOUTH TWICE DAILY atorvastatin (LIPITOR) 40 mg tablet TAKE 1 TABLET BY MOUTH ONCE DAILY famotidine (PEPCID) 20 mg tablet TAKE 1 TABLET BY MOUTH AT BEDTIME NEEDED amiodarone (PACERONE) 100 mg tablet TAKE 1 TABLET BY MOUTH ONCE DAILY *DO NOT TAKE IF HEART RATE ISLESS THAN 40* losartan (COZAAR) 25 mg tablet take 1 tablet by mouth once daily traZODone (DESYREL) 100 mg tablet Take 1 tablet by mouth daily at bedtime. Blood Pressure Monitor kit 1 application twice daily. Measure patient for correct size. Patient needs cuff for left arm readings. COMPOUNDED PRESCRIPTION Articulating AFO foot brace for right leg. Send to [employer]. Dx: I63.9 COMPOUNDED PRESCRIPTION EMBER WALKER DX I63.9 weight 162 # Diaper,Brief, Adult,Disposable (DEPEND REAL FIT BRIEF MEN L/XL) misc 1 Each as needed. Blood Pressure Monitor kit 1 Kit once daily. Please measure patient for correct size. clopidogrel (PLAVIX) 75 mg tablet TAKE 1 TABLET BY MOUTH ONCE DAILY *EMERGENCY REFILL* multivitamin tablet Take 1 tablet by mouth once daily. potassium chloride (K-TAB) 10 mEq tablet Take 2 tablets by mouth three times daily. Tadalafil (CIALIS) 10 mg tablet Take one pill 30-60 minutes prior to sexual activity as needed metoprolol tartrate, short acting, (LOPRESSOR) 25 mg tablet Take 0.5 tablets by mouth twice daily. Hold if heart rate is less than 60 tiotropium bromide (SPIRIVA RESPIMAT) 2.5 mcg/actuation inhaler Inhale as instructed. (Patient not taking: Reported on 03/12/2023) hydroCHLOROthiazide (HYDRODIURIL, ESIDRIX) 12.5 mg tablet Take 1 tablet by mouth once daily. miconazole (MONISTAT-DERM,LANCE) 2 % cream Apply to affected area twice daily. Current Facility-Administered Medications Medication Dose Route Frequency perflutren lipid microspheres 1.3 mL in NaCl (PF) 0.9% 10 mL injection (DEFINITY) INTRAVENOUS DIRECTED PRN sodium chloride 0.9 % (flush) 10 mL (BD POSIFLUSH) 10 mL INTRAVENOUS DIRECTED PRN ALLERGIES: Doxycycline, Sulfate Salt, Zpak [Azithromycin], and Lisinopril PERSONAL HISTORY: SOCIAL HISTORY Social History Tobacco Use Smoking status: Former Packs/day: 2.00 Years: 45.00 Additional pack years: 0.00 Total pack years: 90.00 Types: Cigarettes Quit date: 07/08/2016 Years since quittin.7 Smokeless tobacco: Never Tobacco comments: 07/08/2016 Vaping Use Vaping Use: Never used Substance Use Topics Alcohol use: No Drug use: Never FAMILY HISTORY: FAMILY HISTORY FAMILY HISTORY Problem Relation Age of Onset Heart Mother CO in her 70s, pacemaker Diabetes Mother Stroke Father other (AAA) Father other (CAD) Brother Hypertension Brother REVIEW OF SYMPTOMS: The review of systems data was entered by the nurse and reviewed by me Nursing Notes: Mayela Mcgrath LPN 04/05/2023 1:54 PM Signed REVIEW OF SYSTEMS: General: The patient NOTES fatigue, denies weight loss, denies weight gain, denies feeling hot, anddenies feelings of cold. Eyes: The patient denies glaucoma, NOTES eye injury/surgery, wears glasses or contacts. Ear/Nose/Throat: The patient NOTES allergies, denies hayfever, denies ear infections, and denies bloody noses. Cardiovascular: The patient denies chest pain, denies heart disease, NOTES high blood pressure,NOTES cardiac stent, denies prior heart attack, denies irregular heart beat, NOTES high cholesterol, denies poor circulation, NOTES heart failure, other cardiac issues, denies claudication, denies cold feet, denies peripheral arterial stent. Respiratory: The patient denies tuberculosis, NOTES pneumonia, denies frequent cough, denies pulmonary embolism, NOTES shortness of breath, and denies coughing up blood. Gastrointestinal: The patient denies difficulty swallowing, denies acid reflux, denies ulcers, denies vomiting, denies jaundice/hepatitis, denies gallbladder problems, denies black or tarry stools, NOTES hemorrhoids, NOTES bleeding from rectum, denies diverticulitis, denies constipation, denies diarrhea, denies loss of stool control, and denies hernias. Kidney/Bladder: The patient denies kidney stones, NOTES urine infections, and denies bloody urine. Skin: The patient denies a history of skin cancer, denies bleeding/changing moles, and NOTES a history of skin rash. Neurologic: The patient denies a history of epilepsy/convulsions, denies headaches, denies head/spinal injuries, and NOTES stroke/TIA. Psychiatric: The patient NOTES psychiatric medications, NOTES depression, and denies voices, NOTES substance abuse. Endocrine: The patient denies thyroid disorders, denies diabetes, and denies hormonal problems. Hematologic: The patient NOTES a history of bruising, NOTES bleeding, and denies anemia, NOTES blood clots. Infections: The patient denies a history of measles and mumps, denies rheumatic fever, and denies sexually transmitted diseases. Musculoskeletal: The patient denies back pain/injury, denies back problems, denies sciatica, NOTES knee/foot trouble, denies arthritis, or denies gout. When was patient's last Mammogram screening? N/A Last Colonoscopy: no prior Mayela cMgrath LPN PHYSICAL EXAMINATION: General: The patient is 67 year old male, well nourished, well hydrated in no acute distress. The patient is oriented to time, place, and person. VITALS: Blood pressure 118/72, pulse 63, temperature 37.2 C (98.9 F), height 182.9 cm (6'), weight 83 kg (183 lb), SpO2 96 %. Body mass index is 24.82 kg/m . HEENT: Normal cephalic, ataumatic, pupils are equally round, sclera are anicteric, mucous membranesare moist, oropharynx is clear. Neck has no masses, asymmetry or lymphadenopathy. Thyroid is unremarkable. Respiratory: Clear to auscultation and percussion. Normal respiratory excursion and pattern. Cardiac: Examination is regular rate and rhythm. Abdominal exam: Soft, nontender, with no palpable masses. No hepatosplenomegaly. No palpable hernias. Rectal exam: exam deferred Extremities: no clubbing, cyanosis or edema. No adenopathy. Other: LABORATORY VALUES: As Noted RADIOLOGIC STUDIES: As Noted Assessment IMPRESSION: Iron deficiency anemia, rectal bleeding PLAN: I plan to perform upper and lower endoscopy. We discussed the risks and benefits of the planned endoscopy. I have informed the patient that complications can occur including failure to completethe endoscopy and perforation. The patient had the opportunity to ask questions concerning the planned endoscopy. My staff has also explained the procedure to the patient in understandable terms and has given the patient printed material concerning the procedure. The patient freely consents to surgery. I plan to use golytely bowel preparation for endoscopy I plan for monitored anesthetic care. I have communicated with [facility] and we will plan to perform this procedure on April 10. It is tentatively scheduled for noon. I will have my office notify [facility] of thetime and place to arrange transportation if possible. Otherwise, the patient's is comfortable t ransporting the patient to [facility]. I will place orders for endoscopy and send a prescription for GoLytely for the to warehouse picker in the event that [facility] cannot obtain that medication short notice Saturday. I will attempt to contact [facility] and give them a verbal order for the bowel prep. To this time, I have gotten voicemails. I will ask my office to attempt to contact them on Saturday. Diagnoses: (D50.0) Iron deficiency anemia due to chronic blood loss My findings have been communicated to Dr. Jaci Arroyo MD via shared medical record. This note will be forwarded to Dr. Jaci Arroyo MD. Return to Clinic: The patient is instructed to follow-up with me after the testing has been completed. Jorge Cardoso MD * Jorge Cardoso MD - 04/10/2023 12:00 PM EDT Images from the original note were not included. HISTORY AND PHYSICAL [facility] 1955 REFERRING PHYSICIAN: Jaci Arroyo MD CHIEF COMPLAINT: Consult (Iron deficency/ anemia) HPI: The patient is a 67 year old male referred for endoscopy. The patient had a previous supravascular accident which makes oral communication difficult and the patient becomes excited when trying to communicate. He is present with his . The patient is currently undergoing rehab at [facility]. He was found to have a significant of blood in his stool. The patient presented to [facility] emergency department on March 21, 2023. She had obtained a new motorized scooter and fell out of the scooter landing on his right side. CT scan of the headwas unremarkable. He returned to the emergency department on the after having an additional 2 falls. At that time laboratory studies were obtained and the patient was found to have anemia with ahemoglobin of 6.5. He was given 2 units of packed red cells his hemoglobin improved to 9.6. Notation from the discharge summary for hospital states that he declined endoscopy at that time. The patient has a history of previous peptic ulcer disease and hemorrhoids. The patient is waswith him at [facility] and went to give him a shower and noted bright red blood in the bathroom. Hemoglobin apparently at [facility] was checked 2 days previously and was maintained at 9. The patient is being seen by me today at the request of Dr. Jaci Arroyo MD for my opinion and advice regarding rectal bleeding and iron deficiency anemia. PAST MEDICAL HISTORY PAST MEDICAL HISTORY Diagnosis Date Acute cerebral infarction ([facility]) left LEANN (acute kidney injury) ([facility]) Anemia Aneurysm ([facility]) Anxiety state Atrial fibrillation ([facility]) 11/2016 Balanitis CAD (coronary artery disease) Carotid stenosis COPD (chronic obstructive pulmonary disease) ([facility]) Dysphasia Emphysema lung ([facility]) History of blood transfusion 03/2023 Hypertension Hypoxia 03/2023 DARON (obstructive sleep apnea) PVD (peripheral vascular disease) ([facility]) Respiratory failure ([facility]) hypoxic-ventilator dependent Stroke (cerebrum) ([facility]) Tobacco abuse PAST SURGICAL HISTORY PAST SURGICAL HISTORY Procedure Laterality Date CABG CONSULT 10/30/2016 multi vessel HEART CATHETERIZATION 09/17/2016 TRACHEOSTOMY HX CURRENT MEDICATIONS Current Outpatient Medications Medication Sig baclofen 10 mg tablet TAKE 1/2 TABLET BY MOUTH THREE TIMES A DAY aspirin, enteric coated (ASPIRIN, ENTERIC COATED) 81 mg EC tablet Take 81 mg by mouth once daily. tiotropium-olodaterol (STIOLTO RESPIMAT) 2.5-2.5 mcg/actuation Inhale 2 Puffs as instructed once daily. albuterol (PROVENTIL) 2.5 mg /3 mL (0.083 %) nebulizer solution Use 3 mL via nebulizer every 4 hours as needed for wheezing/shortness of breath. Use over 5-15minutes. LORazepam (ATIVAN) 0.5 mg Take 1-2 tablets by mouth three times daily as needed for up to 90 days. amLODIPine (NORVASC) 10 mg tablet Take 0.5 tablets by mouth twice daily. Take 1/2 tablet twice daily fluticasone (FLONASE) 50 mcg/actuation nasal spray Use 1 [place] in each nostril twice daily. Rinse mouth after use. busPIRone (BUSPAR) 10 mg tablet Take 1 tablet by mouth three times daily. ezetimibe (ZETIA) 10 mg tablet Take 1 tablet by mouth once daily. escitalopram oxalate (LEXAPRO) 20 mg tablet TAKE 1 TABLET BY MOUTH ONCE DAILY apixaban (ELIQUIS) 5 mg tab(s) TAKE ONE (1) TABLET BY MOUTH TWICE DAILY atorvastatin (LIPITOR) 40 mg tablet TAKE 1 TABLET BY MOUTH ONCE DAILY famotidine (PEPCID) 20 mg tablet TAKE 1 TABLET BY MOUTH AT BEDTIME NEEDED amiodarone (PACERONE) 100 mg tablet TAKE 1 TABLET BY MOUTH ONCE DAILY *DO NOT TAKE IF HEART RATE ISLESS THAN 40* losartan (COZAAR) 25 mg tablet take 1 tablet by mouth once daily traZODone (DESYREL) 100 mg tablet Take 1 tablet by mouth daily at bedtime. Blood Pressure Monitor kit 1 application twice daily. Measure patient for correct size. Patient needs cuff for left arm readings. COMPOUNDED PRESCRIPTION Articulating AFO foot brace for right leg. Send to [employer]. Dx: I63.9 COMPOUNDED PRESCRIPTION EMBER WALKER DX I63.9 weight 162 # Diaper,Brief, Adult,Disposable (DEPEND REAL FIT BRIEF MEN L/XL) misc 1 Each as needed. Blood Pressure Monitor kit 1 Kit once daily. Please measure patient for correct size. clopidogrel (PLAVIX) 75 mg tablet TAKE 1 TABLET BY MOUTH ONCE DAILY *EMERGENCY REFILL* multivitamin tablet Take 1 tablet by mouth once daily. potassium chloride (K-TAB) 10 mEq tablet Take 2 tablets by mouth three times daily. Tadalafil (CIALIS) 10 mg tablet Take one pill 30-60 minutes prior to sexual activity as needed metoprolol tartrate, short acting, (LOPRESSOR) 25 mg tablet Take 0.5 tablets by mouth twice daily. Hold if heart rate is less than 60 tiotropium bromide (SPIRIVA RESPIMAT) 2.5 mcg/actuation inhaler Inhale as instructed. (Patient not taking: Reported on 03/12/2023) hydroCHLOROthiazide (HYDRODIURIL, ESIDRIX) 12.5 mg tablet Take 1 tablet by mouth once daily. miconazole (MONISTAT-DERM,LANCE) 2 % cream Apply to affected area twice daily. Current Facility-Administered Medications Medication Dose Route Frequency perflutren lipid microspheres 1.3 mL in NaCl (PF) 0.9% 10 mL injection (DEFINITY) INTRAVENOUS DIRECTED PRN sodium chloride 0.9 % (flush) 10 mL (BD POSIFLUSH) 10 mL INTRAVENOUS DIRECTED PRN ALLERGIES: Doxycycline, Sulfate Salt, Zpak [Azithromycin], and Lisinopril PERSONAL HISTORY: SOCIAL HISTORY Social History Tobacco Use Smoking status: Former Packs/day: 2.00 Years: 45.00 Additional pack years: 0.00 Total pack years: 90.00 Types: Cigarettes Quit date: 07/08/2016 Years since quittin.7 Smokeless tobacco: Never Tobacco comments: 07/08/2016 Vaping Use Vaping Use: Never used Substance Use Topics Alcohol use: No Drug use: Never FAMILY HISTORY: FAMILY HISTORY FAMILY HISTORY Problem Relation Age of Onset Heart Mother CO in her 70s, pacemaker Diabetes Mother Stroke Father other (AAA) Father other (CAD) Brother Hypertension Brother REVIEW OF SYMPTOMS: The review of systems data was entered by the nurse and reviewed by fl Nursing Notes: Mayela Mcgrath LPN 04/05/2023 1:54 PM Signed REVIEW OF SYSTEMS: General: The patient NOTES fatigue, denies weight loss, denies weight gain, denies feeling hot, anddenies feelings of cold. Eyes: The patient denies glaucoma, NOTES eye injury/surgery, wears glasses or contacts. Ear/Nose/Throat: The patient NOTES allergies, denies hayfever, denies ear infections, and denies bloody noses. Cardiovascular: The patient denies chest pain, denies heart disease, NOTES high blood pressure,NOTES cardiac stent, denies prior heart attack, denies irregular heart beat, NOTES high cholesterol, denies poor circulation, NOTES heart failure, other cardiac issues, denies claudication, denies cold feet, denies peripheral arterial stent. Respiratory: The patient denies tuberculosis, NOTES pneumonia, denies frequent cough, denies pulmonary embolism, NOTES shortness of breath, and denies coughing up blood. Gastrointestinal: The patient denies difficulty swallowing, denies acid reflux, denies ulcers, denies vomiting, denies jaundice/hepatitis, denies gallbladder problems, denies black or tarry stools, NOTES hemorrhoids, NOTES bleeding from rectum, denies diverticulitis, denies constipation, denies diarrhea, denies loss of stool control, and denies hernias. Kidney/Bladder: The patient denies kidney stones, NOTES urine infections, and denies bloody urine. Skin: The patient denies a history of skin cancer, denies bleeding/changing moles, and NOTES a history of skin rash. Neurologic: The patient denies a history of epilepsy/convulsions, denies headaches, denies head/spinal injuries, and NOTES stroke/TIA. Psychiatric: The patient NOTES psychiatric medications, NOTES depression, and denies voices, NOTES substance abuse. Endocrine: The patient denies thyroid disorders, denies diabetes, and denies hormonal problems. Hematologic: The patient NOTES a history of bruising, NOTES bleeding, and denies anemia, NOTES blood clots. Infections: The patient denies a history of measles and mumps, denies rheumatic fever, and denies sexually transmitted diseases. Musculoskeletal: The patient denies back pain/injury, denies back problems, denies sciatica, NOTES knee/foot trouble, denies arthritis, or denies gout. When was patient's last Mammogram screening? N/A Last Colonoscopy: no prior Mayela Mcgrath LPN PHYSICAL EXAMINATION: General: The patient is 67 year old male, well nourished, well hydrated in no acute distress. The patient is oriented to time, place, and person. VITALS: Blood pressure 118/72, pulse 63, temperature 37.2 C (98.9 F), height 182.9 cm (6'), weight 83 kg (183 lb), SpO2 96 %. Body mass index is 24.82 kg/m . HEENT: Normal cephalic, ataumatic, pupils are equally round, sclera are anicteric, mucous membranesare moist, oropharynx is clear. Neck has no masses, asymmetry or lymphadenopathy. Thyroid is unremarkable. Respiratory: Clear to auscultation and percussion. Normal respiratory excursion and pattern. Cardiac: Examination is regular rate and rhythm. Abdominal exam: Soft, nontender, with no palpable masses. No hepatosplenomegaly. No palpable hernias. Rectal exam: exam deferred Extremities: no clubbing, cyanosis or edema. No adenopathy. Other: LABORATORY VALUES: As Noted RADIOLOGIC STUDIES: As Noted Assessment IMPRESSION: Iron deficiency anemia, rectal bleeding PLAN: I plan to perform upper and lower endoscopy. We discussed the risks and benefits of the planned endoscopy. I have informed the patient that complications can occur including failure to completethe endoscopy and perforation. The patient had the opportunity to ask questions concerning the planned endoscopy. My staff has also explained the procedure to the patient in understandable terms and has given the patient printed material concerning the procedure. The patient freely consents to surgery. I plan to use golytely bowel preparation for endoscopy I plan for monitored anesthetic care. I have communicated with [facility] and we will plan to perform this procedure on April 10. It is tentatively scheduled for noon. I will have my office notify Elliot Jiang of thetime and place to arrange transportation if possible. Otherwise, the patient's is comfortable t ransporting the patient to [facility]. I will place orders for endoscopy and send a prescription for GoLytely for the to [facility] the [facility] I will attempt to contact [facility] and give them a verbal order for the bowel prep. To this time, I have gotten voicemails. I will ask my office to attempt to contact them on Saturday. Diagnoses: (D50.0) Iron deficiency anemia due to chronic blood loss My findings have been communicated to Dr. Jaci Arroyo MD via shared medical record. This note will be forwarded to Dr. Jaci Arroyo MD. Return to Clinic: The patient is instructed to follow-up with me after the testing has been completed. Jorge Cardoso MD documented in [facility]23 Instructions* Patient Instructions* Jorge Cardoso MD - 04/07/2023 10:22 AM EDT Images from the original note were not included. Bowel Preparation Instructions for: Golytely, Nulytely, Trilyte or Colyte (polyethylene glycol 3350and electrolytes) IF YOU DO NOT FOLLOW THESE DIRECTIONS, YOUR COLONOSCOPY WILL BE CANCELLED. Lord Instructions: Your bowel must be empty so that your doctor can clearly view your colon. Follow all of the instructions in this handout EXACTLY as they are written. Do NOT eat any solid food the ENTIRE day before your colonoscopy. Drink only clear liquids. Buy your bowel preparation at least 5 days before your colonoscopy. TRANSPORTATION on the Day of Your Exam A responsible person MUST be present with you at Check In prior to your colonoscopy and REMAIN in the endoscopy area until you are discharged. You are NOT ALLOWED to drive, take a taxi or bus, or leave the Endoscopy Center ALONE. If you do not have a responsible van cdl driver (family member or friend) with you to take you home, your exam cannot be done with sedation and will be cancelled. Please bring a list of all of your current medications, including any Over-the Counter medications with you. Medications If you take insulin, diabetic medications or blood thinners such as Coumadin (warfarin), Plavix (clopidogrel), Ticlid (ticlopidine hydrochloride), Agrylin (anagrelide), Xarelto (Rivaroxaban), Pradaxa(Dabigatran), Eliquis (Apixaban), and Effient (Prasugrel). You MUST call the doctors who orders those medicines for instructions on altering the dosage before your colonoscopy. All other medications should be taken the day of the exam with a sip of water including ASPIRIN. Five (5) Days Before Your Colonoscopy Do NOT take medicines that stop diarrhea - such as Imodium, Kaopectate, or Pepto Bismol. Do NOT take fiber supplements - such as Metamucil, Citrucel, or Perdiem. Do NOT take products that contain iron - such as multi-vitamins (the label lists what is in the products). Do NOT take Vitamin E. Buy the prescription bowel preparation solution at your local pharmacy or drugstore pharmacy. 1 07/2019 Bowel Preparation Instructions for: Golytely, Nulytely, Trilyte or Colyte (polyethylene glycol 3350and electrolytes) Three (3) Days Before Your Colonoscopy Do NOT eat high-fiber foods - such as popcorn, beans, seeds (flax, sunflower, quinoa), multigrain bread, nuts, salad/vegetables, or fresh and dried fruit. One (1) Day Before Your Colonoscopy Only drink clear liquids the ENTIRE DAY before your colonoscopy. Do NOT eat any solid foods. Drink at least 8 ounces of clear liquids every hour after waking up. The clear liquids you can drink include: Clear Liquid (NO RED LIQUIDS) DO NOT DRINK Gatorade, Pedialyte or Powerade Clear broth or bouillon Coffee or tea (no milk or non-dairy creamer) Carbonated and non-carbonated soft drinks Luis-Aid or other fruit flavored drinks Strained fruit juices (no pulp) Jell-O, popsicles, hard candy Water Alcohol Milk or non-dairy creamers Noodles or vegetables in soup Juice with pulp Liquid you cannot see through Do not use tobacco/vaping products The bowel preparation solution will be consumed in two parts. Mix the solution the evening before your colonoscopy and refrigerate before drinking. You may add the flavor pack that came with the bowel preparation. Do NOT add ice, sugar or any other flavorings to the solution. Part 1 At 6:00 PM - Evening before your colonoscopy Drink an 8-oz glass of bowel preparation every 10 minutes until clear You may continue to drink clear liquids until midnight. 2 07/2019 documented in this encounterProtestant Hospital09-03-2023 History of Present illness Narrative* Jorge Cardoso MD - 04/07/2023 10:11 AM EDT HISTORY AND PHYSICAL [facility] [place] 1955 REFERRING PHYSICIAN: Jaci Arroyo MD CHIEF COMPLAINT: Consult (Iron deficency/ anemia) HPI: The patient is a 67 year old male referred for endoscopy. The patient had a previous supravascular accident which makes oral communication difficult and the patient becomes excited when trying to communicate. He is present with his . The patient is currently undergoing rehab at [facility]. He was found to have a significant of blood in his stool. The patient presented to [facility] emergency department on March 21, 2023. She had obtained a new motorized scooter and fell out of the scooter landing on his right side. CT scan of the headwas unremarkable. He returned to the emergency department on the after having an additional 2 falls. At that time laboratory studies were obtained and the patient was found to have anemia with ahemoglobin of 6.5. He was given 2 units of packed red cells his hemoglobin improved to 9.6. Notation from the discharge summary for hospital states that he declined endoscopy at that time. The patient has a history of previous peptic ulcer disease and hemorrhoids. The patient is waswith him at [facility] and went to give him a shower and noted bright red blood in the bathroom. Hemoglobin apparently at [facility] was checked 2 days previously and was maintained at 9. The patient is being seen by me today at the request of Dr. Jaci Arroyo MD for my opinion and advice regarding rectal bleeding and iron deficiency anemia. PAST MEDICAL HISTORY Diagnosis Date Acute cerebral infarction ([facility]) left LEANN (acute kidney injury) ([facility]) Anemia Aneurysm ([facility]) Anxiety state Atrial fibrillation ([facility]) 11/2016 Balanitis CAD (coronary artery disease) Carotid stenosis COPD (chronic obstructive pulmonary disease) ([facility]) Dysphasia Emphysema lung ([facility]) History of blood transfusion 03/2023 Hypertension Hypoxia 03/2023 DARON (obstructive sleep apnea) PVD (peripheral vascular disease) ([facility]) Respiratory failure ([facility]) hypoxic-ventilator dependent Stroke (cerebrum) ([facility]) Tobacco abuse PAST SURGICAL HISTORY Procedure Laterality Date CABG CONSULT 10/30/2016 multi vessel HEART CATHETERIZATION 09/17/2016 TRACHEOSTOMY HX Current Outpatient Medications Medication Sig baclofen 10 mg tablet TAKE 1/2 TABLET BY MOUTH THREE TIMES A DAY aspirin, enteric coated (ASPIRIN, ENTERIC COATED) 81 mg EC tablet Take 81 mg by mouth once daily. tiotropium-olodaterol (STIOLTO RESPIMAT) 2.5-2.5 mcg/actuation Inhale 2 Puffs as instructed once daily. albuterol (PROVENTIL) 2.5 mg /3 mL (0.083 %) nebulizer solution Use 3 mL via nebulizer every 4 hours as needed for wheezing/shortness of breath. Use over 5-15minutes. LORazepam (ATIVAN) 0.5 mg Take 1-2 tablets by mouth three times daily as needed for up to 90 days. amLODIPine (NORVASC) 10 mg tablet Take 0.5 tablets by mouth twice daily. Take 1/2 tablet twice daily fluticasone (FLONASE) 50 mcg/actuation nasal spray Use 1 [place] in each nostril twice daily. Rinse mouth after use. busPIRone (BUSPAR) 10 mg tablet Take 1 tablet by mouth three times daily. ezetimibe (ZETIA) 10 mg tablet Take 1 tablet by mouth once daily. escitalopram oxalate (LEXAPRO) 20 mg tablet TAKE 1 TABLET BY MOUTH ONCE DAILY apixaban (ELIQUIS) 5 mg tab(s) TAKE ONE (1) TABLET BY MOUTH TWICE DAILY atorvastatin (LIPITOR) 40 mg tablet TAKE 1 TABLET BY MOUTH ONCE DAILY famotidine (PEPCID) 20 mg tablet TAKE 1 TABLET BY MOUTH AT BEDTIME NEEDED amiodarone (PACERONE) 100 mg tablet TAKE 1 TABLET BY MOUTH ONCE DAILY *DO NOT TAKE IF HEART RATE ISLESS THAN 40* losartan (COZAAR) 25 mg tablet take 1 tablet by mouth once daily traZODone (DESYREL) 100 mg tablet Take 1 tablet by mouth daily at bedtime. Blood Pressure Monitor kit 1 application twice daily. Measure patient for correct size. Patient needs cuff for left arm readings. COMPOUNDED PRESCRIPTION Articulating AFO foot brace for right leg. Send to [employer]. Dx: I63.9 COMPOUNDED PRESCRIPTION EMBER WALKER DX I63.9 weight 162 # Diaper,Brief, Adult,Disposable (DEPEND REAL FIT BRIEF MEN L/XL) misc 1 Each as needed. Blood Pressure Monitor kit 1 Kit once daily. Please measure patient for correct size. clopidogrel (PLAVIX) 75 mg tablet TAKE 1 TABLET BY MOUTH ONCE DAILY *EMERGENCY REFILL* multivitamin tablet Take 1 tablet by mouth once daily. potassium chloride (K-TAB) 10 mEq tablet Take 2 tablets by mouth three times daily. Tadalafil (CIALIS) 10 mg tablet Take one pill 30-60 minutes prior to sexual activity as needed metoprolol tartrate, short acting, (LOPRESSOR) 25 mg tablet Take 0.5 tablets by mouth twice daily. Hold if heart rate is less than 60 tiotropium bromide (SPIRIVA RESPIMAT) 2.5 mcg/actuation inhaler Inhale as instructed. (Patient not taking: Reported on 03/12/2023) hydroCHLOROthiazide (HYDRODIURIL, ESIDRIX) 12.5 mg tablet Take 1 tablet by mouth once daily. miconazole (MONISTAT-DERM,LANCE) 2 % cream Apply to affected area twice daily. Current Facility-Administered Medications Medication Dose Route Frequency perflutren lipid microspheres 1.3 mL in NaCl (PF) 0.9% 10 mL injection (DEFINITY) INTRAVENOUS DIRECTED PRN sodium chloride 0.9 % (flush) 10 mL (BD POSIFLUSH) 10 mL INTRAVENOUS DIRECTED PRN ALLERGIES: Doxycycline, Sulfate Salt, Zpak [Azithromycin], and Lisinopril PERSONAL HISTORY: Social History Tobacco Use Smoking status: Former Packs/day: 2.00 Years: 45.00 Additional pack years: 0.00 Total pack years: 90.00 Types: Cigarettes Quit date: 07/08/2016 Years since quittin.7 Smokeless tobacco: Never Tobacco comments: 07/08/2016 Vaping Use Vaping Use: Never used Substance Use Topics Alcohol use: No Drug use: Never FAMILY HISTORY: FAMILY HISTORY Problem Relation Age of Onset Heart Mother CO in her 70s, pacemaker Diabetes Mother Stroke Father other (AAA) Father other (CAD) Brother Hypertension Brother REVIEW OF SYMPTOMS: The review of systems data was entered by the nurse and reviewed by fl Nursing Notes: Mayela Mcgrath LPN 04/05/2023 1:54 PM Signed REVIEW OF SYSTEMS: General: The patient NOTES fatigue, denies weight loss, denies weight gain, denies feeling hot, anddenies feelings of cold. Eyes: The patient denies glaucoma, NOTES eye injury/surgery, wears glasses or contacts. Ear/Nose/Throat: The patient NOTES allergies, denies hayfever, denies ear infections, and denies bloody noses. Cardiovascular: The patient denies chest pain, denies heart disease, NOTES high blood pressure,NOTES cardiac stent, denies prior heart attack, denies irregular heart beat, NOTES high cholesterol, denies poor circulation, NOTES heart failure, other cardiac issues, denies claudication, denies cold feet, denies peripheral arterial stent. Respiratory: The patient denies tuberculosis, NOTES pneumonia, denies frequent cough, denies pulmonary embolism, NOTES shortness of breath, and denies coughing up blood. Gastrointestinal: The patient denies difficulty swallowing, denies acid reflux, denies ulcers, denies vomiting, denies jaundice/hepatitis, denies gallbladder problems, denies black or tarry stools, NOTES hemorrhoids, NOTES bleeding from rectum, denies diverticulitis, denies constipation, denies diarrhea, denies loss of stool control, and denies hernias. Kidney/Bladder: The patient denies kidney stones, NOTES urine infections, and denies bloody urine. Skin: The patient denies a history of skin cancer, denies bleeding/changing moles, and NOTES a history of skin rash. Neurologic: The patient denies a history of epilepsy/convulsions, denies headaches, denies head/spinal injuries, and NOTES stroke/TIA. Psychiatric: The patient NOTES psychiatric medications, NOTES depression, and denies voices, NOTES substance abuse. Endocrine: The patient denies thyroid disorders, denies diabetes, and denies hormonal problems. Hematologic: The patient NOTES a history of bruising, NOTES bleeding, and denies anemia, NOTES blood clots. Infections: The patient denies a history of measles and mumps, denies rheumatic fever, and denies sexually transmitted diseases. Musculoskeletal: The patient denies back pain/injury, denies back problems, denies sciatica, NOTES knee/foot trouble, denies arthritis, or denies gout. When was patient's last Mammogram screening? N/A Last Colonoscopy: no prior Mayela Mcgrath LPN PHYSICAL EXAMINATION: General: The patient is 67 year old male, well nourished, well hydrated in no acute distress. The patient is oriented to time, place, and person. VITALS: Blood pressure 118/72, pulse 63, temperature 37.2 C (98.9 F), height 182.9 cm (6'), weight 83 kg (183 lb), SpO2 96 %. Body mass index is 24.82 kg/m . HEENT: Normal cephalic, ataumatic, pupils are equally round, sclera are anicteric, mucous membranesare moist, oropharynx is clear. Neck has no masses, asymmetry or lymphadenopathy. Thyroid is unremarkable. Respiratory: Clear to auscultation and percussion. Normal respiratory excursion and pattern. Cardiac: Examination is regular rate and rhythm. Abdominal exam: Soft, nontender, with no palpable masses. No hepatosplenomegaly. No palpable hernias. Rectal exam: exam deferred Extremities: no clubbing, cyanosis or edema. No adenopathy. Other: LABORATORY VALUES: As Noted RADIOLOGIC STUDIES: As Noted Assessment IMPRESSION: Iron deficiency anemia, rectal bleeding PLAN: I plan to perform upper and lower endoscopy. We discussed the risks and benefits of the planned endoscopy. I have informed the patient that complications can occur including failure to completethe endoscopy and perforation. The patient had the opportunity to ask questions concerning the planned endoscopy. My staff has also explained the procedure to the patient in understandable terms and has given the patient printed material concerning the procedure. The patient freely consents to surgery. I plan to use golytely bowel preparation for endoscopy I plan for monitored anesthetic care. I have communicated with [facility] and we will plan to perform this procedure on Saturday, April 10. It is tentatively scheduled for noon. I will have my office notify [facility] of thetime and place to arrange transportation if possible. Otherwise, the patient's is comfortable t ransporting the patient to [facility]. I will place orders for endoscopy and send a prescription for GoLytely for the to warehouse picker in the event that [facility] cannot obtain that medication short notice Saturday. I will attempt to contact [facility] and give them a verbal order for the bowel prep. To this time, I have gotten voicemails. I will ask my office to attempt to contact them on Saturday. Diagnoses: (D50.0) Iron deficiency anemia due to chronic blood loss My findings have been communicated to Dr. Jaci Arroyo MD via shared medical record. This note will be forwarded to Dr. Jaci Arroyo MD. Return to Clinic: The patient is instructed to follow-up with me after the testing has been completed. Jorge Cardoso MD documented in this encounterPro[facility]09-01-2023 Miscellaneous Notes* Telephone Encounter - Qian Porter - 04/05/2023 2:59 PM EDT Left VM to schedule OV. YESIKA Annual f/up (May) - PVD; Foot drop, right documented in this encounterProtestant Hospital09-01-2023 Nurse Note* Mayela McgrathJAVI - 04/05/2023 1:50 PM EDT REVIEW OF SYSTEMS: General: The patient NOTES fatigue, denies weight loss, denies weight gain, denies feeling hot, anddenies feelings of cold. Eyes: The patient denies glaucoma, NOTES eye injury/surgery, wears glasses or contacts. Ear/Nose/Throat: The patient NOTES allergies, denies hayfever, denies ear infections, and denies bloody noses. Cardiovascular: The patient denies chest pain, denies heart disease, NOTES high blood pressure,NOTES cardiac stent, denies prior heart attack, denies irregular heart beat, NOTES high cholesterol, denies poor circulation, NOTES heart failure, other cardiac issues, denies claudication, denies cold feet, denies peripheral arterial stent. Respiratory: The patient denies tuberculosis, NOTES pneumonia, denies frequent cough, denies pulmonary embolism, NOTES shortness of breath, and denies coughing up blood. Gastrointestinal: The patient denies difficulty swallowing, denies acid reflux, denies ulcers, denies vomiting, denies jaundice/hepatitis, denies gallbladder problems, denies black or tarry stools, NOTES hemorrhoids, NOTES bleeding from rectum, denies diverticulitis, denies constipation, denies diarrhea, denies loss of stool control, and denies hernias. Kidney/Bladder: The patient denies kidney stones, NOTES urine infections, and denies bloody urine. Skin: The patient denies a history of skin cancer, denies bleeding/changing moles, and NOTES a history of skin rash. Neurologic: The patient denies a history of epilepsy/convulsions, denies headaches, denies head/spinal injuries, and NOTES stroke/TIA. Psychiatric: The patient NOTES psychiatric medications, NOTES depression, and denies voices, NOTES substance abuse. Endocrine: The patient denies thyroid disorders, denies diabetes, and denies hormonal problems. Hematologic: The patient NOTES a history of bruising, NOTES bleeding, and denies anemia, NOTES blood clots. Infections: The patient denies a history of measles and mumps, denies rheumatic fever, and denies sexually transmitted diseases. Musculoskeletal: The patient denies back pain/injury, denies back problems, denies sciatica, NOTES knee/foot trouble, denies arthritis, or denies gout. When was patient's last Mammogram screening? N/A Last Colonoscopy: no prior Mayela Mcgrath LPN documented in this encounterProtestant Hospital08-24-2023 Miscellaneous Notes* Telephone Encounter - Monica Cruz Ma - 03/28/2023 4:49 PM EDT Pt notified, transferred to [facility] to set up appt. Monica Cruz Ma * Telephone Encounter - Jaci Arroyo MD - 03/28/2023 3:09 PM EDT OK for Surgery referral for endoscopic evaluation Jaci Arroyo MD * Telephone Encounter - Therese Paz LPN - 03/28/2023 11:51 AM EDT called and she is requesting a referral to GI for EGD. W[facility] to stay within the [facility]. Please advise willing to see Dr. Cardoso or any of the surgeons. concerned pt is losing blood somewhere. Therese Paz LPN * Telephone Encounter - Therese Paz LPN - 03/28/2023 11:43 AM EDT FYI: Received call from Cathy Hayes ([phone]) with [facility] that pt was admitted to [facility] late yesterday afternoon 03-27-23. Therese Paz LPN * Telephone Encounter - Rachel Buckley Ma - 03/28/2023 8:01 AM EDT Review FYI below. Rachel Buckley Ma * Telephone Encounter - Jayde Laughlin RN - 03/27/2023 10:09 AM EDT Patient's Eli calls and states that patient was admitted to [facility] on 03/22/2023. When patient had labs done, labs showed that patient's iron and hemoglobin were low. Patient was given 2 units of blood. Patient had CT scan done on brain as well as xray of chest and spine. Patient is to be transferred to [facility] as soon as insurance approves of this. Per patient is going onskilled unit so that patient can be strong enough to come home. If provider has any questions, please give Eli a call back. Jayde Laughlin RN * Telephone Encounter - Amor Avendaño - 03/27/2023 8:26 AM EDT Cathy Siu([facility]) called on behalf of pt, was admitted on 03/22/23 to [facility]. Call back: [phone] For further information Please advise Amor Avendaño documented in this encounterProtestant Hospital08-21-2023 Miscellaneous Notes* Telephone Encounter - Jaci Arroyo MD - 03/25/2023 6:50 PM EDT OK to refill as ordered Jaci Arroyo MD documented in this encounterProtestant Hospital08-18-2023 Miscellaneous Notes* Telephone Encounter - Jaci Arroyo MD - 03/22/2023 11:20 AM EDT Noted Jaci Arroyo MD * Telephone Encounter - Jayde Laughlin RN - 03/22/2023 9:30 AM EDT Cathy Siu from [facility] calls to report that yesterday during the day patient had fallen and had gone to ER. Patient had CT of head which came back normal. Patient was then sent back home. Patient fell again last night. Squad had came and helped patient off of floor and back to bed. Jayde Laughlin RN documented in this encounterProtestant Hospital08-17-2023 Hospital Discharge instructions Patient Education 03/21/2023 17:13:45 Head Injury (Adult) Head Injury (Adult) You have a head injury. It does not appear serious at this time. But symptoms of a more serious problem, such as a mild brain injury (concussion) or bruising or bleeding in the brain, may appear later. For this reason, you or someone caring for you will need to watch for the symptoms listed below. Once you re home, also be sure to follow any care instructions you re given. Home care Watch for the following symptoms Seek emergency medical care if you have any of these symptoms over the next hours to days: Headache Nausea or vomiting Dizziness Sensitivity to light or noise Unusual sleepiness or grogginess Trouble falling asleep Personality changes Vision changes Memory loss Confusion Trouble walking or clumsiness Loss of consciousness (even for a short time) Inability to be awakened Stiff neck Weakness or numbness in any part of the body Seizures General care If you were prescribed medicines for pain, use them as directed. Note: Don t take other medicines for pain without talking to your provider first. To help reduce swelling and pain, apply a cold source to the injured area for up to 20 minutes at atime. Do this as often as directed. Use a cold pack or bag of ice wrapped in a thin towel. Never apply a cold source directly to the skin. If you have cuts or scrapes as a result of your head injury, care for them as directed. For the next 24 hours (or longer, if instructed): oDon t drink alcohol or use sedatives or other medicines that make you sleepy. oDon t drive or operate machinery. oDon t do anything strenuous, such as heavy lifting or straining. oLimit tasks that require concentration. This includes reading, using a smartphone or computer, watching TV, and playing video games. oDon t return to sports or other activities that could result in another head injury. Follow-up care Follow up with your healthcare provider, or as directed. If imaging tests were done, they will be reviewed by a doctor. You will be told the results and any new findings that may affect your care. When to seek medical advice Call your healthcare provider right away if any of these occur: Pain doesn t get better or worsens New or increased swelling or bruising Fever of 100.4 F (38 C) or higher, or as directed by your provider Increased redness, warmth, drainage, or bleeding from the injured area Fluid drainage or bleeding from the nose or ears Any depression or bony abnormality in the injured area Persistent confusion or lethargy Bruising behind the ears or bruising around the eyes [id number] The [employer]. [address] [place] [address]. All rights reserved. This information is not intended as a substitute for professional medical care. Always follow yourhealthcare professional's instructions. Follow Up Care 03/21/2023 14:56:06 With:JACI ARROYO MD Address: [address] [place] [address]- When:2-4 days [facility] 08-17-2023 Note Discharge Instructions Thank you for allowing [facility] to assist you with your healthcare needs. The following is importantdischarge information regarding your hospital visit. Diagnosis from Today's Visit Fall Fall Head injury What to Do Next Instructions from Your Care Team No qualifying data available. Post Acute Orders No qualifying data available. You Need to Schedule the Following Appointments Follow Up with JACI ARROYO MD When Within 2-4 days Where: [facility] [place], [place] [id number]- Allergies lisinopril (Lip swelling) azithromycin sulfa drug Medications Please ask your primary doctor or pharmacist before taking any other medication not listed, including over the counter drugs, herbal medications, vitamins and or supplements as they may interact withyour home medications. What How Much When Instructions Last Dose Unchanged amiodarone (amiodarone 100 mg oral tablet) 1 tab(s) by mouth Once a day TAKE 1 TABLET BY MOUTH ONCE DAILY *DO NOT TAKE IF HEART RATE IS LESS THAN 40* Unchanged amLODIPine (amLODIPine 10 mg oral tablet) 0.5 tab(s) by mouth Once a day TAKE 1/ 2 TABLET BY MOUTH TWICE DAILY Unchanged amoxicillin-clavulanate (amoxicillin-clavulanate 875 mg-125 mg oral tablet) 1 tab(s) by mouth Every 12 hours Unchanged apixaban (Eliquis 5 mg oral tablet) 1 tab(s) by mouth Two (2) times a day TAKE ONE (1) TABLET BY MOUTH TWICE DAILY Unchanged atorvastatin (atorvastatin 40 mg oral tablet) 1 tab(s) by mouth Once a day TAKE 1 TABLET BY MOUTH ONCE DAILY Unchanged baclofen (baclofen 10 mg oral tablet) 0.5 tab(s) by mouth Three (3) times a day TAKE 1/ 2 TABLET BY MOUTH THREE TIMES A DAY Unchanged budesonide-formoterol (Symbicort 160 mcg-4.5 mcg/ inh Inhaler) 2 puff(s) by inhalation Two (2) times a day Unchanged busPIRone (busPIRone 10 mg oral tablet) 1 tab(s) by mouth Three (3) times a day Unchanged clopidogrel (clopidogrel 75 mg oral tablet) 1 tab(s) by mouth Every day Unchanged escitalopram (escitalopram 20 mg oral tablet) 1 tab(s) by mouth Once a day TAKE 1 TABLET BY MOUTH ONCE DAILY Unchanged ezetimibe (ezetimibe 10 mg oral tablet) 1 tab(s) by mouth Once a day TAKE 1 TABLET BY MOUTH ONCE DAILY Unchanged famotidine (famotidine 20 mg oral tablet) 1 tab(s) by mouth Daily at bedtime Unchanged hydroCHLOROthiazide (hydroCHLOROthiazide 12.5 mg oral tablet) 1 tab(s) by mouth Once a day Unchanged losartan (losartan 25 mg oral tablet) 1 tab(s) by mouth Once a day Unchanged metoprolol (Lopressor 25mg--USE metoprolol tartrate 25 mg oral tablet) 0.5 tab(s) Two (2) times a day Unchanged multivitamin (Multivitamin) 1 tab(s) by mouth Every day Unchanged nystatin topical (nystatin 100,000 units/ g topical cream) 1 application Topical Three (3) times a day Unchanged potassium chloride (Potassium Chloride (Kqy-Hssl-Fom 10) 10 mEq oral tablet, extended release) 2 tab(s) by mouth Three (3) times a day TAKE 2 TABLETS BY MOUTH THREE TIMES A DAY Unchanged tiotropium (Spiriva Respimat 1.25 mcg/ inh inhalation aerosol) 2 puff(s) by inhalation Once a day Unchanged traZODone (traZODone 100 mg oral tablet) 1 tab(s) by mouth Daily at bedtime TAKE 1 TABLET BY MOUTH DAILY AT BEDTIME Please take this list to your next doctor s visit. Bring all medications you take, including over the counter medications, herbals and other supplements with you to your doctor s visit. Patients and families are reminded to discard old lists and to update any records with all medication providers or retail pharmacies. Education Materials Head Injury (Adult) You have a head injury. It does not appear serious at this time. But symptoms of a more serious problem, such as a mild brain injury (concussion) or bruising or bleeding in the brain, may appear later. For this reason, you or someone caring for you will need to watch for the symptoms listed below. Once you re home, also be sure to follow any care instructions you re given. Home care Watch for the following symptoms Seek emergency medical care if you have any of these symptoms over the next hours to days: Headache Nausea or vomiting Dizziness Sensitivity to light or noise Unusual sleepiness or grogginess Trouble falling asleep Personality changes Vision changes Memory loss Confusion Trouble walking or clumsiness Loss of consciousness (even for a short time) Inability to be awakened Stiff neck Weakness or numbness in any part of the body Seizures General care If you were prescribed medicines for pain, use them as directed. Note: Don t take other medicines for pain without talking to your provider first. To help reduce swelling and pain, apply a cold source to the injured area for up to 20 minutes at atime. Do this as often as directed. Use a cold pack or bag of ice wrapped in a thin towel. Never apply a cold source directly to the skin. If you have cuts or scrapes as a result of your head injury, care for them as directed. For the next 24 hours (or longer, if instructed): oDon t drink alcohol or use sedatives or other medicines that make you sleepy. oDon t drive or operate machinery. oDon t do anything strenuous, such as heavy lifting or straining. oLimit tasks that require concentration. This includes reading, using a smartphone or computer, watching TV, and playing video games. oDon t return to sports or other activities that could result in another head injury. Follow-up care Follow up with your healthcare provider, or as directed. If imaging tests were done, they will be reviewed by a doctor. You will be told the results and any new findings that may affect your care. When to seek medical advice Call your healthcare provider right away if any of these occur: Pain doesn t get better or worsens New or increased swelling or bruising Fever of 100.4 F (38 C) or higher, or as directed by your provider Increased redness, warmth, drainage, or bleeding from the injured area Fluid drainage or bleeding from the nose or ears Any depression or bony abnormality in the injured area Persistent confusion or lethargy Bruising behind the ears or bruising around the eyes [phone] The [employer]. [address] [place] [address]. All rights reserved. This information is not intended as a substitute for professional medical care. Always follow yourhealthcare professional's instructions. Additional Information VACCINATE! IT SAVES LIVES! Members of the community who have not yet received the COVID-19 vaccine and would like to receive it can visit one of [facility] vaccine clinics. There are many vaccine clinic locations within the [facility]. For locations and available times, please visit www.gettheshot.coronavirus.[place].gov/. It is important to note that some COVID mobile vaccine clinics are held outdoors and may be canceled in rainy or stormy conditions. To learn more about pediatric vaccinations (ages 5-11), we invite you to visit the [facility] webpage. https://www.[email or web address]/pages/9803-Xtftw-Wioxukuclrv-Mvxiiukvog-Tflec-Uzw stions.htmlTo learn more about the COVID-19 vaccine, we invite you to visit the CDC website for a list of frequently asked questions. https://www.cdc.gov/coronavirus/2019-ncov/vaccines/faq.html [facility] Patient Portal Access Instructions: Stay connected with your healthcare team and access your personal medical information anytime with the [facility] Patient Portal. If you would like a full copy of your medical records please contact the [facility] Medical Records Department Saturday through Saturday between 8a.m. and 4:30p.m. Please follow the directions below to access the portal: 1.Access the email account you provided upon registration to the [facility].2.Look for an invitation email from [facility].3.Open the email and access the invitation link: Accept Invitation to [facility]4.Fill in the required krueger to create your account. Sign into [email or web address] with your username and password that you created in the above steps to stay up to date. You can then view a summary of results, a summary of your visits, and the ability to download your summaries to your computer or send the information securely to a physician. Remember that your healthcare information is confidential, so carefully consider who you will allow to register on the [facility] Patient Portal for access to your information. You can also access the [facility] Patient Portal on the ahoyDoc. Simply click on Health Records under Etaphase and then click on the [employer] logo. HOW TO SAFELY DISPOSE OF PRESCRIPTION MEDICATIONS Please use one of the following methods to safely dispose of your unused medications. 1.Use a drug disposal kit: the drug disposal pouch allows you to safely discard your old and unuseddrugs. Ask your nurse to give you one when you are discharged.2.Visit a local take-back location: Many local pharmacies and police departments have programs that collect old and unwanted prescriptiondrugs. Call your local pharmacy or go to http://ZestFinance.Phylogy/4X6Yz4y to find one close to you.3.Make use of household items: Use cat litter or old coffee grounds to dispose medications if other options arenot available. Mix your drugs with these household products, seal them in an airtight container andthrow it into the garbage. Call [facility]: [phone] to be sure your drugs can be disposed of in this way. Some medicines may require a different approach.4.Never flush your medications down the toilet. IF YOU HAVE BEEN PRESCRIBED AN OPIOIDS FOR PAIN If you have been prescribed an opioid (such as hydrocodone, oxycodone or morphine), it is critical to understand the possible side effects and risks of opioid pain medications. Even when taken as directed, opioids can have several side effects including: Tolerance, meaning you might need to take more of a medication for the same pain relief. Nausea, vomiting and/or constipation. Sleepiness, dizziness, dry mouth, confusion, depression or itching. Physical dependence, meaning you have withdrawal symptoms when a medication is stopped ? this can develop within a few days. KNOW YOUR RESPONSIBILITIES It is important to know exactly how much and how often to take the opioid pain medications you are prescribed. Never take opioids in higher amounts or more often than prescribed. Do not combine opioids with alcohol or other drugs that cause drowsiness, such as benzodiazepines, also known as benzos,including diazepam and alprazolam, muscle relaxants or sleep aids. Never sell or share prescriptionopioids. This is illegal. Store opioids in a secure place and out of reach of others (including children, family, friends and visitors). The last page(s) of this document has been signed and retained as a CHART COPY Signatures Patient Education Materials Head Injury (Adult) Medication Leaflets My discharge plan and instructions have been reviewed and explained to me and I,AFSHIN ZEE understand my current condition and have read and understand these discharge instructions. I have receiveda written copy of the plan/instructions. If I have questions, I am aware that I should contact my do ctor. 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 Automated exposure control, iterative reconstruction, and/or weight based adjustment of the mA/kV was utilized to reduce the radiation dose to as low as reasonably achievable. COMPARISON: None available for review.. HISTORY: ORDERING SYSTEM PROVIDED HISTORY: Reason for Exam: INJURY History of stroke 7 years ago FINDINGS: Motion/stairstep artifact noted on reconstructed images. There is no intracranial hemorrhage, mass effect or abnormal extra-axial fluid collection. There is no CT evidence for acute large territorial infarction. Widespread encephalomalacia of the left cerebral hemisphere. Associated ex vacuo dilation of the left lateral ventricle. Scattered supratentorial white matter hypodensities consistent with mild chronic microvascular angiopathy. The skull base and calvarium demonstrate no acute abnormality. The included paranasal sinuses and mastoid air cells are predominantly clear. IMPRESSION: No acute intracranial hemorrhage or other acute traumatic abnormality. I have personally reviewed the images of this examination and agree with the resident's findings and interpretation. Interpreted by: Eulogio Rodriguez DO Preliminary Report By: Lissa Godoy Electronically signed By Eulogio Rodriguez DO Dictated Date: 03/21/2023 4:59:56 PM Prelim Date: 03/21/2023 5:09:27 PM Sign Date: 03/21/2023 5:15:43 PM Ordering Provider: [facility]08-14-2023 Miscellaneous Notes* Telephone Encounter - Mariano Beckman APRN.CNP - 03/18/2023 12:07 PM EDT The following approved medication requests have been transmitted electronically. Requested Prescriptions Pending Prescriptions Disp Refills clopidogrel (PLAVIX) 75 mg tablet [Pharmacy Med Name: CLOPIDOGREL 75 MG TABLET 75 Tablet] 30 [id number] Sig: TAKE 1 TABLET BY MOUTH ONCE DAILY *EMERGENCY REFILL* Mariano Beckman APRN.CNP * Telephone Encounter - Alvin Nick LPN - 03/18/2023 9:51 AM EDT GLENNY 03/07/23 NOV 06/11/23 documented in this encounterProtestant Hospital08-08-2023 Instructions* Patient Instructions* Kimo Mcgrath MD - 03/12/2023 2:20 PM EDT Referral for lung cancer screening a future date. Won't be due until January 2024 documented in this encounterProtestant Hospital08-08-2023 History of Past illness Narrative* Problem Noted Date Diagnosed Date Resolved Date COPD with exacerbation 03/12/202303/12 Respiratory failure, unspeci fied chronicity, unspecified whether with hypoxia or hypercapnia 03/07/2023 03/12/2023 Last Assessment & Plan: Resolved Tracheostomy status 12/04/2022 02/27/20 23 Bacterial pneumonia 11/17/2022 03/12/20 23 Elevated blood pressure 06/06/201003/05 documented as of this encounter (statuses as of 03/12/2023) [facility] History of Past illness Narrative* Problem Noted Date Diagnosed Date Resolved Date COPD with exacerbation 03/12/202303/12 Respiratory failure, unspeci fied chronicity, unspecified whether with hypoxia or hypercapnia 03/07/2023 03/12/2023 Last Assessment & Plan: Resolved Tracheostomy status 12/04/2022 02/27/20 23 Bacterial pneumonia 11/17/2022 03/12/20 23 Elevated blood pressure 06/06/201003/05 documented as of this encounter (statuses as of 03/12/2023) [facility] History of Past illness Narrative* Problem Noted Date Diagnosed Date Resolved Date COPD with exacerbation 03/12/202303/12 Respiratory failure, unspeci fied chronicity, unspecified whether with hypoxia or hypercapnia 03/07/2023 03/12/2023 Last Assessment & Plan: Resolved Tracheostomy status 12/04/2022 02/27/20 23 Bacterial pneumonia 11/17/2022 03/12/20 23 Elevated blood pressure 06/06/201003/05 documented as of this encounter (statuses as of 03/13/2023) [facility]23 History of Past illness Narrative* Problem Noted Date Diagnosed Date Resolved Date COPD with exacerbation 03/12/202303/12 Respiratory failure, unspeci fied chronicity, unspecified whether with hypoxia or hypercapnia 03/07/2023 03/12/2023 Last Assessment & Plan: Resolved Tracheostomy status 12/04/2022 02/27/20 23 Bacterial pneumonia 11/17/2022 03/12/20 23 Elevated blood pressure 06/06/201003/05 documented as of this encounter (statuses as of 03/18/2023) [facility] History of Past illness Narrative* Problem Noted Date Diagnosed Date Resolved Date COPD with exacerbation 03/12/202303/12 Respiratory failure, unspeci fied chronicity, unspecified whether with hypoxia or hypercapnia 03/07/2023 03/12/2023 Last Assessment & Plan: Resolved Tracheostomy status 12/04/2022 02/27/20 23 Bacterial pneumonia 11/17/2022 03/12/20 23 Elevated blood pressure 06/06/201003/05 documented as of this encounter (statuses as of 03/22/2023) [facility] History of Past illness Narrative* Problem Noted Date Diagnosed Date Resolved Date COPD with exacerbation 03/12/202303/12 Respiratory failure, unspeci fied chronicity, unspecified whether with hypoxia or hypercapnia 03/07/2023 03/12/2023 Last Assessment & Plan: Resolved Tracheostomy status 12/04/2022 02/27/20 23 Bacterial pneumonia 11/17/2022 03/12/20 23 Elevated blood pressure 06/06/201003/05 documented as of this encounter (statuses as of 03/26/2023) [facility] History of Past illness Narrative* Problem Noted Date Diagnosed Date Resolved Date COPD with exacerbation 03/12/202303/12 Respiratory failure, unspeci fied chronicity, unspecified whether with hypoxia or hypercapnia 03/07/2023 03/12/2023 Last Assessment & Plan: Resolved Tracheostomy status 12/04/2022 02/27/20 23 Bacterial pneumonia 11/17/2022 03/12/20 23 Elevated blood pressure 06/06/201003/05 documented as of this encounter (statuses as of 03/29/2023) [facility] History of Past illness Narrative* Problem Noted Date Diagnosed Date Resolved Date COPD with exacerbation 03/12/202303/12 Respiratory failure, unspeci fied chronicity, unspecified whether with hypoxia or hypercapnia 03/07/2023 03/12/2023 Last Assessment & Plan: Resolved Tracheostomy status 12/04/2022 02/27/20 23 Bacterial pneumonia 11/17/2022 03/12/20 23 Elevated blood pressure 06/06/201003/05 documented as of this encounter (statuses as of 04/05/2023) [facility] History of Past illness Narrative* Problem Noted Date Diagnosed Date Resolved Date COPD with exacerbation 03/12/202303/12 Respiratory failure, unspeci fied chronicity, unspecified whether with hypoxia or hypercapnia 03/07/2023 03/12/2023 Last Assessment & Plan: Resolved Tracheostomy status 12/04/2022 02/27/20 23 Bacterial pneumonia 11/17/2022 03/12/20 23 Elevated blood pressure 06/06/201003/05 documented as of this encounter (statuses as of 04/07/2023) [facility] History of Past illness Narrative* Problem Noted Date Diagnosed Date Resolved Date COPD with exacerbation 03/12/202303/12 Respiratory failure, unspeci fied chronicity, unspecified whether with hypoxia or hypercapnia 03/07/2023 03/12/2023 Last Assessment & Plan: Resolved Tracheostomy status 12/04/2022 02/27/20 23 Bacterial pneumonia 11/17/2022 03/12/20 23 Elevated blood pressure 06/06/201003/05 documented as of this encounter (statuses as of 04/11/2023) [facility] History of Past illness Narrative* Problem Noted Date Diagnosed Date Resolved Date COPD with exacerbation 03/12/202303/12 Respiratory failure, unspeci fied chronicity, unspecified whether with hypoxia or hypercapnia 03/07/2023 03/12/2023 Last Assessment & Plan: Resolved Tracheostomy status 12/04/2022 02/27/20 23 Bacterial pneumonia 11/17/2022 03/12/20 23 Elevated blood pressure 06/06/201003/05 documented as of this encounter (statuses as of 04/12/2023) [facility] History of Past illness Narrative* Problem Noted Date Diagnosed Date Resolved Date COPD with exacerbation 03/12/202303/12 Respiratory failure, unspeci fied chronicity, unspecified whether with hypoxia or hypercapnia 03/07/2023 03/12/2023 Last Assessment & Plan: Resolved Tracheostomy status 12/04/2022 02/27/20 23 Bacterial pneumonia 11/17/2022 03/12/20 23 Elevated blood pressure 06/06/201003/05 documented as of this encounter (statuses as of 04/15/2023) [facility] History of Past illness Narrative* Problem Noted Date Diagnosed Date Resolved Date COPD with exacerbation 03/12/202303/12 Respiratory failure, unspeci fied chronicity, unspecified whether with hypoxia or hypercapnia 03/07/2023 03/12/2023 Last Assessment & Plan: Resolved Tracheostomy status 12/04/2022 02/27/20 23 Bacterial pneumonia 11/17/2022 03/12/20 23 Elevated blood pressure 06/06/201003/05 documented as of this encounter (statuses as of 04/19/2023) [facility] History of Past illness Narrative* Problem Noted Date Diagnosed Date Resolved Date COPD with exacerbation 03/12/202303/12 Respiratory failure, unspeci fied chronicity, unspecified whether with hypoxia or hypercapnia 03/07/2023 03/12/2023 Last Assessment & Plan: Resolved Tracheostomy status 12/04/2022 02/27/20 23 Bacterial pneumonia 11/17/2022 03/12/20 23 Elevated blood pressure 06/06/201003/05 documented as of this encounter (statuses as of 04/22/2023) [facility] History of Past illness Narrative* Problem Noted Date Diagnosed Date Resolved Date COPD with exacerbation 03/12/202303/12 Respiratory failure, unspeci fied chronicity, unspecified whether with hypoxia or hypercapnia 03/07/2023 03/12/2023 Last Assessment & Plan: Resolved Tracheostomy status 12/04/2022 02/27/20 23 Bacterial pneumonia 11/17/2022 03/12/20 23 Elevated blood pressure 06/06/201003/05 documented as of this encounter (statuses as of 05/10/2023) [facility] History of Past illness Narrative* Problem Noted Date Diagnosed Date Resolved Date COPD with exacerbation 03/12/202303/12 Respiratory failure, unspeci fied chronicity, unspecified whether with hypoxia or hypercapnia 03/07/2023 03/12/2023 Last Assessment & Plan: Resolved Tracheostomy status 12/04/2022 02/27/20 23 Bacterial pneumonia 11/17/2022 03/12/20 23 Elevated blood pressure 06/06/201003/05 documented as of this encounter (statuses as of 05/14/2023) [facility] History of Past illness Narrative* Problem Noted Date Diagnosed Date Resolved Date COPD with exacerbation 03/12/202303/12 Respiratory failure, unspeci fied chronicity, unspecified whether with hypoxia or hypercapnia 03/07/2023 03/12/2023 Last Assessment & Plan: Resolved Tracheostomy status 12/04/2022 02/27/20 23 Bacterial pneumonia 11/17/2022 03/12/20 23 Elevated blood pressure 06/06/201003/05 documented as of this encounter (statuses as of 05/14/2023) [facility] History of Past illness Narrative* Problem Noted Date Diagnosed Date Resolved Date COPD with exacerbation 03/12/202303/12 Respiratory failure, unspeci fied chronicity, unspecified whether with hypoxia or hypercapnia 03/07/2023 03/12/2023 Last Assessment & Plan: Resolved Tracheostomy status 12/04/2022 02/27/20 23 Bacterial pneumonia 11/17/2022 03/12/20 23 Elevated blood pressure 06/06/201003/05 documented as of this encounter (statuses as of 05/15/2023) [facility] History of Past illness Narrative* Problem Noted Date Diagnosed Date Resolved Date COPD with exacerbation 03/12/202303/12 Respiratory failure, unspeci fied chronicity, unspecified whether with hypoxia or hypercapnia 03/07/2023 03/12/2023 Last Assessment & Plan: Resolved Tracheostomy status 12/04/2022 02/27/20 23 Bacterial pneumonia 11/17/2022 03/12/20 23 Elevated blood pressure 06/06/201003/05 documented as of this encounter (statuses as of 05/23/2023) [facility] History of Past illness Narrative* Problem Noted Date Diagnosed Date Resolved Date COPD with exacerbation 03/12/202303/12 Respiratory failure, unspeci fied chronicity, unspecified whether with hypoxia or hypercapnia 03/07/2023 03/12/2023 Last Assessment & Plan: Resolved Tracheostomy status 12/04/2022 02/27/20 23 Bacterial pneumonia 11/17/2022 03/12/20 23 Elevated blood pressure 06/06/201003/05 documented as of this encounter (statuses as of 05/28/2023) [facility] History of Past illness Narrative* Problem Noted Date Diagnosed Date Resolved Date COPD with exacerbation 03/12/202303/12 Respiratory failure, unspeci fied chronicity, unspecified whether with hypoxia or hypercapnia 03/07/2023 03/12/2023 Last Assessment & Plan: Resolved Tracheostomy status 12/04/2022 02/27/20 23 Bacterial pneumonia 11/17/2022 03/12/20 23 Elevated blood pressure 06/06/201003/05 documented as of this encounter (statuses as of 05/31/2023) [facility] History of Past illness Narrative* Problem Noted Date Diagnosed Date Resolved Date COPD with exacerbation 03/12/202303/12 Respiratory failure, unspeci fied chronicity, unspecified whether with hypoxia or hypercapnia 03/07/2023 03/12/2023 Last Assessment & Plan: Resolved Tracheostomy status 12/04/2022 02/27/20 23 Bacterial pneumonia 11/17/2022 03/12/20 23 Elevated blood pressure 06/06/201003/05 documented as of this encounter (statuses as of 06/08/2023) [facility] History of Past illness Narrative* Problem Noted Date Diagnosed Date Resolved Date COPD with exacerbation 03/12/202303/12 Respiratory failure, unspeci fied chronicity, unspecified whether with hypoxia or hypercapnia 03/07/2023 03/12/2023 Last Assessment & Plan: Resolved Tracheostomy status 12/04/2022 02/27/20 23 Bacterial pneumonia 11/17/2022 03/12/20 23 Elevated blood pressure 06/06/201003/05 documented as of this encounter (statuses as of 06/12/2023) [facility] History of Past illness Narrative* Problem Noted Date Diagnosed Date Resolved Date COPD with exacerbation 03/12/202303/12 Respiratory failure, unspeci fied chronicity, unspecified whether with hypoxia or hypercapnia 03/07/2023 03/12/2023 Last Assessment & Plan: Resolved Tracheostomy status 12/04/2022 02/27/20 23 Bacterial pneumonia 11/17/2022 03/12/20 23 Elevated blood pressure 06/06/201003/05 documented as of this encounter (statuses as of 06/12/2023) [facility] History of Past illness Narrative* Problem Noted Date Diagnosed Date Resolved Date COPD with exacerbation 03/12/202303/12 Respiratory failure, unspeci fied chronicity, unspecified whether with hypoxia or hypercapnia 03/07/2023 03/12/2023 Last Assessment & Plan: Resolved Tracheostomy status 12/04/2022 02/27/20 23 Bacterial pneumonia 11/17/2022 03/12/20 23 Elevated blood pressure 06/06/201003/05 documented as of this encounter (statuses as of 06/13/2023) [facility] History of Past illness Narrative* Problem Noted Date Diagnosed Date Resolved Date COPD with exacerbation 03/12/202303/12 Respiratory failure, unspeci fied chronicity, unspecified whether with hypoxia or hypercapnia 03/07/2023 03/12/2023 Last Assessment & Plan: Resolved Tracheostomy status 12/04/2022 02/27/20 23 Bacterial pneumonia 11/17/2022 03/12/20 23 Elevated blood pressure 06/06/201003/05 documented as of this encounter (statuses as of 06/13/2023) [facility] History of Past illness Narrative* Problem Noted Date Diagnosed Date Resolved Date COPD with exacerbation 03/12/202303/12 Respiratory failure, unspeci fied chronicity, unspecified whether with hypoxia or hypercapnia 03/07/2023 03/12/2023 Last Assessment & Plan: Resolved Tracheostomy status 12/04/2022 02/27/20 23 Bacterial pneumonia 11/17/2022 03/12/20 23 Elevated blood pressure 06/06/201003/05 documented as of this encounter (statuses as of 06/13/2023) [facility] History of Past illness Narrative* Problem Noted Date Diagnosed Date Resolved Date COPD with exacerbation 03/12/202303/12 Respiratory failure, unspeci fied chronicity, unspecified whether with hypoxia or hypercapnia 03/07/2023 03/12/2023 Last Assessment & Plan: Resolved Tracheostomy status 12/04/2022 02/27/20 23 Bacterial pneumonia 11/17/2022 03/12/20 23 Elevated blood pressure 06/06/201003/05 documented as of this encounter (statuses as of 06/20/2023) [facility] History of Past illness Narrative* Problem Noted Date Diagnosed Date Resolved Date COPD with exacerbation 03/12/202303/12 Respiratory failure, unspeci fied chronicity, unspecified whether with hypoxia or hypercapnia 03/07/2023 03/12/2023 Last Assessment & Plan: Resolved Tracheostomy status 12/04/2022 02/27/20 23 Bacterial pneumonia 11/17/2022 03/12/20 23 Elevated blood pressure 06/06/201003/05 documented as of this encounter (statuses as of 06/20/2023) [facility] History of Past illness Narrative* Problem Noted Date Diagnosed Date Resolved Date COPD with exacerbation 03/12/202303/12 Respiratory failure, unspeci fied chronicity, unspecified whether with hypoxia or hypercapnia 03/07/2023 03/12/2023 Last Assessment & Plan: Resolved Tracheostomy status 12/04/2022 02/27/20 23 Bacterial pneumonia 11/17/2022 03/12/20 23 Elevated blood pressure 06/06/201003/05 documented as of this encounter (statuses as of 06/21/2023) [facility] History of Past illness Narrative* Problem Noted Date Diagnosed Date Resolved Date COPD with exacerbation 03/12/202303/12 Respiratory failure, unspeci fied chronicity, unspecified whether with hypoxia or hypercapnia 03/07/2023 03/12/2023 Last Assessment & Plan: Resolved Tracheostomy status 12/04/2022 02/27/20 23 Bacterial pneumonia 11/17/2022 03/12/20 23 Elevated blood pressure 06/06/201003/05 documented as of this encounter (statuses as of 06/21/2023) [facility] History of Past illness Narrative* Problem Noted Date Diagnosed Date Resolved Date COPD with exacerbation 03/12/202303/12 Respiratory failure, unspeci fied chronicity, unspecified whether with hypoxia or hypercapnia 03/07/2023 03/12/2023 Last Assessment & Plan: Resolved Tracheostomy status 12/04/2022 02/27/20 23 Bacterial pneumonia 11/17/2022 03/12/20 23 Elevated blood pressure 06/06/201003/05 documented as of this encounter (statuses as of 06/24/2023) [facility] History of Past illness Narrative* Problem Noted Date Diagnosed Date Resolved Date COPD with exacerbation 03/12/202303/12 Respiratory failure, unspeci fied chronicity, unspecified whether with hypoxia or hypercapnia 03/07/2023 03/12/2023 Last Assessment & Plan: Resolved Tracheostomy status 12/04/2022 02/27/20 23 Bacterial pneumonia 11/17/2022 03/12/20 23 Elevated blood pressure 06/06/201003/05 documented as of this encounter (statuses as of 06/26/2023) [facility] History of Past illness Narrative* Problem Noted Date Diagnosed Date Resolved Date COPD with exacerbation 03/12/202303/12 Respiratory failure, unspeci fied chronicity, unspecified whether with hypoxia or hypercapnia 03/07/2023 03/12/2023 Last Assessment & Plan: Resolved Tracheostomy status 12/04/2022 02/27/20 23 Bacterial pneumonia 11/17/2022 03/12/20 23 Elevated blood pressure 06/06/201003/05 documented as of this encounter (statuses as of 06/26/2023) [facility] History of Past illness Narrative* Problem Noted Date Diagnosed Date Resolved Date COPD with exacerbation 03/12/202303/12 Respiratory failure, unspeci fied chronicity, unspecified whether with hypoxia or hypercapnia 03/07/2023 03/12/2023 Last Assessment & Plan: Resolved Tracheostomy status 12/04/2022 02/27/20 23 Bacterial pneumonia 11/17/2022 03/12/20 23 Elevated blood pressure 06/06/201003/05 documented as of this encounter (statuses as of 07/01/2023) [facility] History of Past illness Narrative* Problem Noted Date Diagnosed Date Resolved Date COPD with exacerbation 03/12/202303/12 Respiratory failure, unspeci fied chronicity, unspecified whether with hypoxia or hypercapnia 03/07/2023 03/12/2023 Last Assessment & Plan: Resolved Tracheostomy status 12/04/2022 02/27/20 23 Bacterial pneumonia 11/17/2022 03/12/20 23 Elevated blood pressure 06/06/201003/05 documented as of this encounter (statuses as of 07/02/2023) [facility] History of Past illness Narrative* Problem Noted Date Diagnosed Date Resolved Date COPD with exacerbation 03/12/202303/12 Respiratory failure, unspeci fied chronicity, unspecified whether with hypoxia or hypercapnia 03/07/2023 03/12/2023 Last Assessment & Plan: Resolved Tracheostomy status 12/04/2022 02/27/20 23 Bacterial pneumonia 11/17/2022 03/12/20 23 Elevated blood pressure 06/06/201003/05 documented as of this encounter (statuses as of 07/08/2023) [facility] History of Past illness Narrative* Problem Noted Date Diagnosed Date Resolved Date COPD with exacerbation 03/12/202303/12 Respiratory failure, unspeci fied chronicity, unspecified whether with hypoxia or hypercapnia 03/07/2023 03/12/2023 Last Assessment & Plan: Resolved Tracheostomy status 12/04/2022 02/27/20 23 Bacterial pneumonia 11/17/2022 03/12/20 23 Elevated blood pressure 06/06/201003/05 documented as of this encounter (statuses as of 07/08/2023) [facility] History of Past illness Narrative* Problem Noted Date Diagnosed Date Resolved Date COPD with exacerbation 03/12/202303/12 Respiratory failure, unspeci fied chronicity, unspecified whether with hypoxia or hypercapnia 03/07/2023 03/12/2023 Last Assessment & Plan: Resolved Tracheostomy status 12/04/2022 02/27/20 23 Bacterial pneumonia 11/17/2022 03/12/20 23 Elevated blood pressure 06/06/201003/05 documented as of this encounter (statuses as of 07/12/2023) [facility] History of Past illness Narrative* Problem Noted Date Diagnosed Date Resolved Date COPD with exacerbation 03/12/202303/12 Respiratory failure, unspeci fied chronicity, unspecified whether with hypoxia or hypercapnia 03/07/2023 03/12/2023 Last Assessment & Plan: Resolved Tracheostomy status 12/04/2022 02/27/20 23 Bacterial pneumonia 11/17/2022 03/12/20 23 Elevated blood pressure 06/06/201003/05 documented as of this encounter (statuses as of 07/15/2023) [facility] History of Past illness Narrative* Problem Noted Date Diagnosed Date Resolved Date COPD with exacerbation 03/12/202303/12 Respiratory failure, unspeci fied chronicity, unspecified whether with hypoxia or hypercapnia 03/07/2023 03/12/2023 Last Assessment & Plan: Resolved Tracheostomy status 12/04/2022 02/27/20 23 Bacterial pneumonia 11/17/2022 03/12/20 23 Elevated blood pressure 06/06/201003/05 documented as of this encounter (statuses as of 07/15/2023) [facility] History of Past illness Narrative* Problem Noted Date Diagnosed Date Resolved Date COPD with exacerbation 03/12/202303/12 Respiratory failure, unspeci fied chronicity, unspecified whether with hypoxia or hypercapnia 03/07/2023 03/12/2023 Last Assessment & Plan: Resolved Tracheostomy status 12/04/2022 02/27/20 23 Bacterial pneumonia 11/17/2022 03/12/20 23 Elevated blood pressure 06/06/201003/05 documented as of this encounter (statuses as of 07/16/2023) [facility] History of Past illness Narrative* Problem Noted Date Diagnosed Date Resolved Date COPD with exacerbation 03/12/202303/12 Respiratory failure, unspeci fied chronicity, unspecified whether with hypoxia or hypercapnia 03/07/2023 03/12/2023 Last Assessment & Plan: Resolved Tracheostomy status 12/04/2022 02/27/20 23 Bacterial pneumonia 11/17/2022 03/12/20 23 Elevated blood pressure 06/06/201003/05 documented as of this encounter (statuses as of 07/23/2023) [facility] History of Past illness Narrative* Problem Noted Date Diagnosed Date Resolved Date COPD with exacerbation 03/12/202303/12 Respiratory failure, unspeci fied chronicity, unspecified whether with hypoxia or hypercapnia 03/07/2023 03/12/2023 Last Assessment & Plan: Resolved Tracheostomy status 12/04/2022 02/27/20 23 Bacterial pneumonia 11/17/2022 03/12/20 23 Elevated blood pressure 06/06/201003/05 documented as of this encounter (statuses as of 07/26/2023) [facility] History of Past illness Narrative* Problem Noted Date Diagnosed Date Resolved Date COPD with exacerbation 03/12/202303/12 Respiratory failure, unspeci fied chronicity, unspecified whether with hypoxia or hypercapnia 03/07/2023 03/12/2023 Last Assessment & Plan: Resolved Tracheostomy status 12/04/2022 02/27/20 23 Bacterial pneumonia 11/17/2022 03/12/20 23 Elevated blood pressure 06/06/201003/05 documented as of this encounter (statuses as of 09/10/2023) [facility] History of Past illness Narrative* Problem Noted Date Diagnosed Date Resolved Date COPD with exacerbation 03/12/202303/12 Respiratory failure, unspeci fied chronicity, unspecified whether with hypoxia or hypercapnia 03/07/2023 03/12/2023 Last Assessment & Plan: Resolved Tracheostomy status 12/04/2022 02/27/20 23 Bacterial pneumonia 11/17/2022 03/12/20 23 Elevated blood pressure 06/06/201003/05 documented as of this encounter (statuses as of 09/13/2023) [facility] History of Past illness Narrative* Problem Noted Date Diagnosed Date Resolved Date COPD with exacerbation 03/12/202303/12 Respiratory failure, unspeci fied chronicity, unspecified whether with hypoxia or hypercapnia 03/07/2023 03/12/2023 Last Assessment & Plan: Resolved Tracheostomy status 12/04/2022 02/27/20 23 Bacterial pneumonia 11/17/2022 03/12/20 23 Elevated blood pressure 06/06/201003/05 documented as of this encounter (statuses as of 09/16/2023) [facility] History of Past illness Narrative* Problem Noted Date Diagnosed Date Resolved Date COPD with exacerbation 03/12/202303/12 Respiratory failure, unspeci fied chronicity, unspecified whether with hypoxia or hypercapnia 03/07/2023 03/12/2023 Last Assessment & Plan: Resolved Tracheostomy status 12/04/2022 02/27/20 23 Bacterial pneumonia 11/17/2022 03/12/20 23 Elevated blood pressure 06/06/201003/05 documented as of this encounter (statuses as of 09/17/2023) [facility] History of Past illness Narrative* Problem Noted Date Diagnosed Date Resolved Date COPD with exacerbation 03/12/202303/12 Respiratory failure, unspeci fied chronicity, unspecified whether with hypoxia or hypercapnia 03/07/2023 03/12/2023 Last Assessment & Plan: Resolved Tracheostomy status 12/04/2022 02/27/20 23 Bacterial pneumonia 11/17/2022 03/12/20 23 Elevated blood pressure 06/06/201003/05 documented as of this encounter (statuses as of 09/19/2023) [facility] History of Past illness Narrative* Problem Noted Date Diagnosed Date Resolved Date COPD with exacerbation 03/12/202303/12 Respiratory failure, unspeci fied chronicity, unspecified whether with hypoxia or hypercapnia 03/07/2023 03/12/2023 Last Assessment & Plan: Resolved Tracheostomy status 12/04/2022 02/27/20 23 Bacterial pneumonia 11/17/2022 03/12/20 23 Elevated blood pressure 06/06/201003/05 documented as of this encounter (statuses as of 09/20/2023) [facility] History of Past illness Narrative* Problem Noted Date Diagnosed Date Resolved Date COPD with exacerbation 03/12/202303/12 Respiratory failure, unspeci fied chronicity, unspecified whether with hypoxia or hypercapnia 03/07/2023 03/12/2023 Last Assessment & Plan: Resolved Tracheostomy status 12/04/2022 02/27/20 23 Bacterial pneumonia 11/17/2022 03/12/20 23 Elevated blood pressure 06/06/201003/05 documented as of this encounter (statuses as of 09/24/2023) [facility] History of Past illness Narrative* Problem Noted Date Diagnosed Date Resolved Date COPD with exacerbation 03/12/202303/12 Respiratory failure, unspeci fied chronicity, unspecified whether with hypoxia or hypercapnia 03/07/2023 03/12/2023 Last Assessment & Plan: Resolved Tracheostomy status 12/04/2022 02/27/20 23 Bacterial pneumonia 11/17/2022 03/12/20 23 Elevated blood pressure 06/06/201003/05 documented as of this encounter (statuses as of 09/27/2023) [facility] History of Past illness Narrative* Problem Noted Date Diagnosed Date Resolved Date COPD with exacerbation 03/12/202303/12 Respiratory failure, unspeci fied chronicity, unspecified whether with hypoxia or hypercapnia 03/07/2023 03/12/2023 Last Assessment & Plan: Resolved Tracheostomy status 12/04/2022 02/27/20 23 Bacterial pneumonia 11/17/2022 03/12/20 23 Elevated blood pressure 06/06/201003/05 documented as of this encounter (statuses as of 10/02/2023) [facility] History of Past illness Narrative* Problem Noted Date Diagnosed Date Resolved Date COPD with exacerbation 03/12/202303/12 Respiratory failure, unspeci fied chronicity, unspecified whether with hypoxia or hypercapnia 03/07/2023 03/12/2023 Last Assessment & Plan: Resolved Tracheostomy status 12/04/2022 02/27/20 23 Bacterial pneumonia 11/17/2022 03/12/20 23 Elevated blood pressure 06/06/201003/05 documented as of this encounter (statuses as of 10/02/2023) [facility] History of Past illness Narrative* Problem Noted Date Diagnosed Date Resolved Date COPD with exacerbation 03/12/202303/12 Respiratory failure, unspeci fied chronicity, unspecified whether with hypoxia or hypercapnia 03/07/2023 03/12/2023 Last Assessment & Plan: Resolved Tracheostomy status 12/04/2022 02/27/20 23 Bacterial pneumonia 11/17/2022 03/12/20 23 Elevated blood pressure 06/06/201003/05 documented as of this encounter (statuses as of 10/04/2023) [facility] History of Past illness Narrative* Problem Noted Date Diagnosed Date Resolved Date COPD with exacerbation 03/12/202303/12 Respiratory failure, unspeci fied chronicity, unspecified whether with hypoxia or hypercapnia 03/07/2023 03/12/2023 Last Assessment & Plan: Resolved Tracheostomy status 12/04/2022 02/27/20 23 Bacterial pneumonia 11/17/2022 03/12/20 23 Elevated blood pressure 06/06/201003/05 documented as of this encounter (statuses as of 10/11/2023) [facility] History of Past illness Narrative* Problem Noted Date Diagnosed Date Resolved Date COPD with exacerbation 03/12/202303/12 Respiratory failure, unspeci fied chronicity, unspecified whether with hypoxia or hypercapnia 03/07/2023 03/12/2023 Last Assessment & Plan: Resolved Tracheostomy status 12/04/2022 02/27/20 23 Bacterial pneumonia 11/17/2022 03/12/20 23 Elevated blood pressure 06/06/201003/05 documented as of this encounter (statuses as of 10/28/2023) [facility] History of Past illness Narrative* Problem Noted Date Diagnosed Date Resolved Date COPD with exacerbation 03/12/202303/12 Respiratory failure, unspeci fied chronicity, unspecified whether with hypoxia or hypercapnia 03/07/2023 03/12/2023 Last Assessment & Plan: Resolved Tracheostomy status 12/04/2022 02/27/20 23 Bacterial pneumonia 11/17/2022 03/12/20 23 Elevated blood pressure 06/06/201003/05 documented as of this encounter (statuses as of 11/05/2023) [place] [id number] History of Past illness Narrative* Problem Noted Date Diagnosed Date Resolved Date COPD with exacerbation 03/12/202303/12 Respiratory failure, unspeci fied chronicity, unspecified whether with hypoxia or hypercapnia 03/07/2023 03/12/2023 Last Assessment & Plan: Resolved Tracheostomy status 12/04/2022 02/27/20 23 Bacterial pneumonia 11/17/2022 03/12/20 23 Elevated blood pressure 06/06/201003/05 documented as of this encounter (statuses as of 11/22/2023) [facility] History of Present illness Narrative* Kimo Mcgrath MD - 03/12/2023 1:30 PM EDT Images from the original note were not included. . [facility] [place] Note Patient name: Afshin Zee PCP: Jaci Arroyo MD Referring Physician: Same Consultation requested by Dr. Rodriguez for an opinion regarding COPD. My final recommendations will be communicated back to the requesting physician by way of shared Medical record or letter to requesting physician via US mail. Note: History provided by as patient has aphasia CC: SOB HPI: Afshin Zee 67 year old male former 45 pack year smoker, quitting in 2015 with PMH significantfor AF on amiodarone, CVA with residual effects, CAD s/p CABG, PAD, HTN, nocturnal oxygen, emphysema, CKD transferring care. Past medical history is notable for severe stroke with respiratory failurerequiring tracheostomy tube. Patient is decannulated and currently using 6 L nocturnal oxygen. Unable to tolerate CPAP. COPD treated with Spiriva and scheduled albuterol 3-4 times daily. He has been out of his Spiriva for several months and has noted increased shortness of breath and less endurancewith his rehab. Shortness of breath seems to be more severe at night. No wheezing or chronic cough.No sputum production. Last hospitalized for COPD exacerbation and pneumonia in November. Concerns for possible aspiration but speech evaluation did not show jersey aspiration and recommended soft foods. Past history is also notable for severe pneumonia in 2020 with masslike infiltrate right upper lobe. He underwent CT biopsy that showed chronic inflammation and no malignancy. DME: [employer] 6 Liters at night Not able to tolerate CPAP DATA: PFT: Review of pulmonary function test show moderate obstruction, mild restriction, no improvement post bronchodilators and severely reduced diffusing capacity Labs: Component Ref Range & Units 5 mo ago (10/06/22) WBC 3.70 - 11.00 k/uL 11.46 High RBC 4.20 - 6.00 m/uL 4.29 Hemoglobin 13.0 - 17.0 g/dL 12.6 Low Hematocrit 39.0 - 51.0 % 39.1 MCV 80.0 - 100.0 fL 91.1 MCH 26.0 - 34.0 pg 29.4 MCHC 30.5 - 36.0 g/dL 32.2 RDW-CV 11.5 - 15.0 % 13.8 Platelet Count 150 - 400 k/uL 287 MPV 9.0 - 12.7 fL 11.0 Absolute nRBC <0.01 k/uL <0.01 Imaging / Diagnostic Studies: Chest CT 05/2022 [facility]: Reviewed actual images which shows emphysema and RUL scar (previous mass in 2020, s/p biopsy, no malignancy) PAST MEDICAL HISTORY Diagnosis Date Acute cerebral infarction (HCC) left Aneurysm (HCC) Atrial fibrillation (HCC) 11/2016 Balanitis CAD (coronary artery disease) Carotid stenosis Dysphasia Emphysema lung (HCC) Hypertension PVD (peripheral vascular disease) (HCC) Respiratory failure (HCC) hypoxic-ventilator dependent Stroke (cerebrum) (HCC) Tobacco abuse ALLERGIES Allergen Reactions Doxycycline GI Upset GI upset (stomach ache/cramping/diarrhea) and splotchy face Sulfate Salt Hives Zpak [Azithromycin] Hives Lisinopril Swelling Lip swelling after starting lisinopril. LORazepam (ATIVAN) 0.5 mg^Take 1-2 tablets by mouth three times daily as needed for up to 90 days.^Disp: 90 tablet^Rfl: 5 amLODIPine (NORVASC) 10 mg tablet^Take 0.5 tablets by mouth twice daily. Take 1/2 tablet twice daily^Disp: 30 tablet^Rfl: 5 multivitamin tablet^Take 1 tablet by mouth once daily.^Disp: 90 tablet^Rfl: 3 fluticasone (FLONASE) 50 mcg/actuation nasal spray^Use 1 Almont in each nostril twice daily. Rinse mouth after use.^Disp: 16 g^Rfl: 11 busPIRone (BUSPAR) 10 mg tablet^Take 1 tablet by mouth three times daily.^Disp: 270 tablet^Rfl: 3 potassium chloride (K-TAB) 10 mEq tablet^Take 2 tablets by mouth three times daily.^Disp: 540 tablet^Rfl: 3 ezetimibe (ZETIA) 10 mg tablet^Take 1 tablet by mouth once daily.^Disp: 90 tablet^Rfl: 3 escitalopram oxalate (LEXAPRO) 20 mg tablet^TAKE 1 TABLET BY MOUTH ONCE DAILY^Disp: 30 tablet^Rfl: 10 apixaban (ELIQUIS) 5 mg tab(s)^TAKE ONE (1) TABLET BY MOUTH TWICE DAILY^Disp: 60 tablet^Rfl: 10 atorvastatin (LIPITOR) 40 mg tablet^TAKE 1 TABLET BY MOUTH ONCE DAILY^Disp: 30 tablet^Rfl: 10 famotidine (PEPCID) 20 mg tablet^TAKE 1 TABLET BY MOUTH AT BEDTIME NEEDED^Disp: 30 tablet^Rfl: 10 amiodarone (PACERONE) 100 mg tablet^TAKE 1 TABLET BY MOUTH ONCE DAILY *DO NOT TAKE IF HEART RATE ISLESS THAN 40*^Disp: 30 tablet^Rfl: 10 losartan (COZAAR) 25 mg tablet^take 1 tablet by mouth once daily^Disp: 90 tablet^Rfl: 3 metoprolol tartrate, short acting, (LOPRESSOR) 25 mg tablet^Take 0.5 tablets by mouth twice daily. Hold if heart rate is less than 60^Disp: 90 tablet^Rfl: 3 baclofen (LIORESAL) 10 mg tablet^Take 0.5 tablets by mouth three times daily.^Disp: 45 tablet^Rfl: 5 hydroCHLOROthiazide (HYDRODIURIL, ESIDRIX) 12.5 mg tablet^Take 1 tablet by mouth once daily.^Disp: 90 tablet^Rfl: 3 traZODone (DESYREL) 100 mg tablet^Take 1 tablet by mouth daily at bedtime.^Disp: 30 tablet^Rfl: 11 Blood Pressure Monitor kit^1 application twice daily. Measure patient for correct size. Patient needs cuff for left arm readings.^Disp: 1 Kit^Rfl: 0 aspirin, enteric coated (ASPIRIN, ENTERIC COATED) 81 mg EC tablet^Take 81 mg by mouth once daily.^Disp: ^Rfl: tiotropium-olodaterol (STIOLTO RESPIMAT) 2.5-2.5 mcg/actuation^Inhale 2 Puffs as instructed once daily.^Disp: 1 Each^Rfl: 5 albuterol (PROVENTIL) 2.5 mg /3 mL (0.083 %) nebulizer solution^Use 3 mL via nebulizer every 4 hours as needed for wheezing/shortness of breath. Use over 5- 15minutes.^Disp: 120 mL^Rfl: 5 Tadalafil (CIALIS) 10 mg tablet^Take one pill 30-60 minutes prior to sexual activity as needed^Disp: 6 tablet^Rfl: 5 tiotropium bromide (SPIRIVA RESPIMAT) 2.5 mcg/actuation inhaler^Inhale as instructed.^Disp: ^Rfl: (Patient not taking: Reported on 03/12/2023) miconazole (MONISTAT-DERM,LANCE) 2 % cream^Apply to affected area twice daily.^Disp: ^Rfl: COMPOUNDED PRESCRIPTION^Articulating AFO foot brace for right leg. Send to [employer]. Dx: I63.9^Disp: 1 Device^Rfl: 0 COMPOUNDED PRESCRIPTION^EMBER WALKER DX I63.9 weight 162 #^Disp: 1 Each^Rfl: 0 Diaper,Brief, Adult,Disposable (DEPEND REAL FIT BRIEF MEN L/XL) misc^1 Each as needed.^Disp: 100 Each^Rfl: 11 Blood Pressure Monitor kit^1 Kit once daily. 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 Dry nose but no epistaxis EYES: No diplopia or blurry vision. CARDIOVASCULAR: No chest pain, palpitations, orthopnea, PND. Some edema PULM: See HPI GI: No dysphagia/odynophagia, problematic reflux : No urinary complaints, including dysuria, gross hematuria or pyuria. NEURO: Residual neurologic effects from stroke MUSC-SKEL: Hemiparesis PSY: No concerns regarding depression, anxiety INTEGUMENTARY: No new skin changes or rashes PHYSICAL EXAMINATION: BP 108/60 Pulse 66 Resp 14 Ht 5' 8 (1.73m) Wt 184 lb (83.5kg) SpO2 97% BMI 27.98 kg/(m^2). General Appearance: Age appropriate, NAD. Skin: Skin color, texture, turgor normal, no suspicious rashes or lesions. Head: Normocephalic, no masses, lesions, tenderness or abnormalities. Eyes: Sclera, conjunctiva normal. Oropharynx: No oral lesions, no thrush. Neck: No JVD, no masses, no TM. Lungs: Not labored, normal to percussion, no wheezes or crackles. Heart: RRR, no murmur or gallops. Extremities: Mild edema, no clubbing. Neurologic: Wheelchair, residual effects from stroke with right hemiparesis. Assessment/Plan: Centrilobular emphysema -Restart inhaled therapy. Changed to Stiolto Respimat with albuterol as needed rather than scheduled -He will remain tobacco free -Nocturnal oxygen assessment on 6 L -Refilled prescription for liquid albuterol Former cigarette smoker -Former [id number] smoker having quit in 2016 with sequelae of emphysema -Patient qualifies for lung cancer screening but would not be due until January 2024. Will make referral at next visit Old CVA, hemiparesis -Patient in therapy Kimo Mcgrath MD [facility] [place] [facility]Pro[facility] History of Present illness Narrative* Beba Teran RPFT - 03/12/2023 1:20 PM EDT PULM FUNCTION SMARTBLOCK: Provider: Kimo Mcgrath MD Assisting Tech: Beba Teran RPFT Spirometry w/BD: 1 DLCO: 1 documented in this encounterProtestant Hospital08-08-2023 Nurse Note* Deanne Neville LPN - 03/12/2023 1:16 PM EDT Intake information documented in the prior visit with LUIS ANGEL Cope today. documented in this encounterProtestant Hospital08-08-2023 Miscellaneous Notes* Telephone Encounter - Rachel Buckley Ma - 03/12/2023 9:08 AM EDT Form completed and faxed to information below. Rachel Buckley Ma * Telephone Encounter - Monica Cruz Ma - 03/11/2023 9:39 AM EDT Type of letter/form/fax request - order for urinary incontinence supplies Form received from fax on 1 floor and placed on MD desk () for completion. Completed form needs to be faxed to [facility] at [phone]. Route to [place] when form completed for processing documented in this encounterProtestant Hospital08-07-2023 Miscellaneous Notes* Telephone Encounter - Jaci Arroyo MD - 03/11/2023 8:08 PM EDT According to our last note this was discontinued by Cardiology Jaci Arroyo MD * Telephone Encounter - Alvin Nick LPN - 03/11/2023 6:42 PM EDT Patient phones requesting refills as follows: Requested Prescriptions Pending Prescriptions Disp Refills clopidogrel (PLAVIX) 75 mg tablet [Pharmacy Med Name: CLOPIDOGREL 75 MG TABLET 75 Tablet] 30 Sig: TAKE 1 TABLET BY MOUTH ONCE DAILY *EMERGENCY REFILL* GLENNY 03/07/23 NOV 06/11/23 Please review and advise. Alvin Nick LPN documented in this encounterProtestant Hospital08-07-2023 Miscellaneous Notes* Telephone Encounter - Rachel Buckley Ma - 03/11/2023 4:29 PM EDT Call to and notified her of message below from Provider. [facility] Rachel Buckley Ma * Telephone Encounter - Jaci Arroyo MD - 03/11/2023 4:00 PM EDT Lorazepam Rx done to [facility] OK to not do CT since his pain has resolved Jaci Arroyo MD * Telephone Encounter - Amaya Kessler RN - 03/11/2023 10:14 AM EDT Patient's Eli calling with: States pt's recent script for lorazepam 0.5 mg was sent to incorrect pharmacy. Requesting script becanceled at [facility] and sent to [facility] in [place]. Please call Eli once this has been completed. reports she requested a Flank CT scan be ordered for patient due to her concern for pt's side discomfort and possible kidney issue. The CT was ordered and then scheduled to be completed today, however canceled it stating they had another appt and pt is not having any further side discomfort/sx's. states due to pt's recent kidney lab results coming back good, she doesn't think his sx's were related to a kidney issue and asking provider if ok that pt does not reschedule Flank CT? Please call Eli back with reply. Thank you. documented in this encounterProtestant Hospital08-03-2023 History of Present illness Narrative* Jaci Arryoo MD - 03/07/2023 3:20 PM EDT Chief Complaint Patient presents with: F/U 3 Month HPI Afshin Zee is a 67 year old male who presents here today for 3 month follow up. Here with Eli. GERD: Sx stable on Pepcid 20 mg daily prn. CVA/Lipid: Has seen Neuro Dr. Aj in past. He is scheduled with Physical Medicine to consider botox for right hand spasticity. He has Aphasia from the CVA. No longer having HH coming out to home. Was having PT/OT and speech at [facility], on hold for the past few weeks due to flank pain. states that he did one of his sessions and was done after an hour, he was just physically tired. states that he doesn't want to do a lot of walking, does get tired. Can walk with a cane but has some paralysis. Does get spasms in his right side that are bothersome. Taking Lipitor 40 mg daily, Zetia 10 mg daily and Baclofen 10 mg half pill TID. Moods: Taking Ativan 1.5 mg 1-2 pills TID prn, Buspar 10 mg TID and Lexapro 20 mg daily. Ativan helps him sleep. Follows with Desmond Ambriz, Urologist on a as needed basis at this time. Using Cialis prn ED. Afib/HTN/CAD/Lipid - Following with Dr. Johansen, [facility] Team Manager, taking Eliquis 5 mg BID, Adeighg89 mg half pill BID, Pacerone 100 mg daily if heart rate is over 40, Losartan 25 mg daily, Lopressor 25 mg half pill BID if heart rate over 60, HCTZ 12.5 mg daily, and Potassium 10 mEq 2 pills TID. Was d/c off Plavix 75 mg once daily and started on ASA 81 mg daily. Nephro - Has been having BMP monitored due to elevated Creatinine. If continued to be elevated may need to refer to Nephrology. Follows with Pulmonary Dr. Mcgrath at [facility]. Is using Spiriva Respimat inhaler, nebulizer tx. Is currently scheduled to see Pulmonary through [facility] due to not being happy with treatment. She will be getting records to bring to her appt. Flank pain - Was seen by Mariano Beckman CNP for flank pain on 02/26/23. Was given Medrol Dose Sacha and has one day left. Pain is much improved. Started Gabapentin but this did not help him and they d/c the medication. Asking if all the medication he's taking is necessary. Past medical history, appointments, medications, allergies reviewed. Previous Medical History PAST MEDICAL HISTORY Diagnosis Date Acute cerebral infarction (HCC) left Aneurysm (HCC) Atrial fibrillation (HCC) 11/2016 Balanitis CAD (coronary artery disease) Carotid stenosis Dysphasia Hyperglycemia Hypertension PVD (peripheral vascular disease) (HCC) Respiratory failure (HCC) hypoxic-ventilator dependent Stroke (cerebrum) (HCC) Tobacco abuse Previous Surgical History PAST SURGICAL HISTORY Procedure Laterality Date CABG (5) VENOUS GRAFTS & ARTERIAL GRAFT(S) 10/30/2016 CABG CONSULT 10/30/2016 multi vessel HEART CATHETERIZATION 09/17/2016 TRACHEOSTOMY HX Family History FAMILY HISTORY Problem Relation Age of Onset Heart Mother CO in her 70s, pacemaker Diabetes Mother Stroke Father other (AAA) Father other (CAD) Brother Hypertension Brother Patient Allergies ALLERGIES Allergen Reactions Doxycycline GI Upset GI upset (stomach ache/cramping/diarrhea) and splotchy face Sulfate Salt Hives Zpak [Azithromycin] Hives Lisinopril Swelling Lip swelling after starting lisinopril. Current Medications Current Outpatient Medications on File Prior to Visit Medication Sig Tadalafil (CIALIS) 10 mg tablet Take one pill 30-60 minutes prior to sexual activity as needed escitalopram oxalate (LEXAPRO) 20 mg tablet TAKE 1 TABLET BY MOUTH ONCE DAILY apixaban (ELIQUIS) 5 mg tab(s) TAKE ONE (1) TABLET BY MOUTH TWICE DAILY atorvastatin (LIPITOR) 40 mg tablet TAKE 1 TABLET BY MOUTH ONCE DAILY amLODIPine (NORVASC) 10 mg tablet Take 0.5 tablets by mouth twice daily. Take 1/2 tablet twice daily famotidine (PEPCID) 20 mg tablet TAKE 1 TABLET BY MOUTH AT BEDTIME NEEDED amiodarone (PACERONE) 100 mg tablet TAKE 1 TABLET BY MOUTH ONCE DAILY *DO NOT TAKE IF HEART RATE ISLESS THAN 40* losartan (COZAAR) 25 mg tablet take 1 tablet by mouth once daily LORazepam (ATIVAN) 0.5 mg Take 1-2 tablets by mouth three times daily as needed for up to 90 days. metoprolol tartrate, short acting, (LOPRESSOR) 25 mg tablet Take 0.5 tablets by mouth twice daily. Hold if heart rate is less than 60 baclofen (LIORESAL) 10 mg tablet Take 0.5 tablets by mouth three times daily. tiotropium bromide (SPIRIVA RESPIMAT) 2.5 mcg/actuation inhaler Inhale as instructed. (Patient not taking: Reported on 12/24/2022) hydroCHLOROthiazide (HYDRODIURIL, ESIDRIX) 12.5 mg tablet Take 1 tablet by mouth once daily. miconazole (MONISTAT-DERM,LANCE) 2 % cream Apply to affected area twice daily. traZODone (DESYREL) 100 mg tablet Take 1 tablet by mouth daily at bedtime. busPIRone (BUSPAR) 10 mg tablet Take 1 tablet by mouth three times daily. potassium chloride (K-TAB) 10 mEq tablet Take 2 tablets by mouth three times daily. albuterol (PROVENTIL) 2.5 mg /3 mL (0.083 %) nebulizer solution Use 3 mL via nebulizer every 4 hours as needed for wheezing/shortness of breath. Use over 5-15minutes. multivitamin tablet Take 1 tablet by mouth once daily. ezetimibe (ZETIA) 10 mg tablet Take 1 tablet by mouth once daily. fluticasone (FLONASE) 50 mcg/actuation nasal spray Use 1 [place]mont in each nostril twice daily. Rinse mouth after use. albuterol HFA (PROVENTIL HFA, VENTOLIN HFA) 90 mcg/actuation inhaler Inhale 2 Puffs as instructed every 4 hours as needed for Wheezing/Shortness of Breath. Blood Pressure Monitor kit 1 application twice daily. Measure patient for correct size. Patient needs cuff for left arm readings. COMPOUNDED PRESCRIPTION Articulating AFO foot brace for right leg. Send to [employer]. Dx: I63.9 COMPOUNDED PRESCRIPTION EMBER WALKER DX I63.9 weight 162 # Diaper,Brief, Adult,Disposable (DEPEND REAL FIT BRIEF MEN L/XL) misc 1 Each as needed. Blood Pressure Monitor kit 1 Kit once daily. Please measure patient for correct size. Current Facility-Administered Medications on File Prior to Visit Medication perflutren lipid microspheres 1.3 mL in NaCl (PF) 0.9% 10 mL injection (DEFINITY) sodium chloride 0.9 % (flush) 10 mL (BD POSIFLUSH) Social History Social History Tobacco Use Smoking status: Former Years: 45.00 Types: Cigarettes Quit date: 07/08/2016 Years since quittin.6 Smokeless tobacco: Never Tobacco comments: 07/08/2016 Vaping Use Vaping Use: Never used Substance Use Topics Alcohol use: No Drug use: Never EXAM: BP 110/60 (BP Site: Left Arm, BP Position: Sitting, BP Cuff Size: Regular Adult) Pulse 68 Resp 16 Wt 83.4 kg (183 lb 12.8 oz) BMI 26.37 kg/m General Appearance: Well appearing, alert, in no acute distress, well-hydrated, well nourished.. Lungs: Lungs clear to auscultation. No wheezing, rhonchi, rales.. Heart: RRR without murmur, gallop, or rubs. No ectopy. Health Maintenance List ABDOMINAL AORTIC ANEURYSM SCREENING Never done PNEUMOCOCCAL: 65+(1 - PCV) Never done SPIROMETRY Never done HEPATITIS C SCREENING Never done DTAP,TDAP,TD(1 - Tdap) Never done ALPHA-1 ANTITRYPSIN DEFICIENCY SCREENING Never done SHINGRIX VACCINE(1 of 2) Never done PROSTATE CANCER SCREENING DISCUSSION due on 06/03/2015 ADVANCE DIRECTIVE DISCUSSION Never done DEPRESSION ASSESSMENT Never done COLORECTAL CANCER SCREENING due on 09/11/2022 COVID-19 VACCINE(5 - Moderna series) due on 09/28/2022 INFLUENZA(1) due on 04/05/2023 ANNUAL PCP TEAM CHRONIC DISEASE VISIT due on 12/05/2023 LDL CHOLESTEROL due on 12/14/2023 BP CONTROLLED (<130/80) due on 12/25/2023 DIABETES SCREEN due on 02/18/2026 LIPID SCREEN due on 12/14/2027 Data reviewed Appointment on 02/26/2023 Component Date Value Glucose 02/26/2023 73 (L) BUN 02/26/2023 14 Creatinine 02/26/2023 1.20 Sodium 02/26/2023 140 Potassium 02/26/2023 4.7 Chloride 02/26/2023 105 CO2 02/26/2023 23 Anion Gap 02/26/2023 12 Calcium, Total 02/26/2023 8.9 Estimated Glomerular Marco Antonio* 02/26/2023 66 Office Visit on 02/26/2023 Component Date Value GLUCOSE UA (POCT) 02/26/2023 Negative BILIRUBIN UA (POCT) 02/26/2023 Negative KETONE UA (POCT) 02/26/2023 Negative SPECIFIC GRAVITY UA (POC* 02/26/2023 1.025 HEMOGLOBIN/BLOOD UA (PO* 02/26/2023 Negative PH UA (POCT) 02/26/2023 6.0 PROTEIN UA (POCT) 02/26/2023 Trace (A) UROBILINOGEN UA (POCT) 02/26/2023 0.2 NITRITE UA (POCT) 02/26/2023 Negative LEUKOCYTES UA (POCT) 02/26/2023 Small (A) COLOR UA (POCT) 02/26/2023 Dark yellow CLARITY UA (POCT) 02/26/2023 Clear Culture, Urine 02/26/2023 10,000 -<50,000 CFU/ml Mixed microbiota (A) Appointment on 02/18/2023 Component Date Value Glucose 02/18/2023 94 BUN 02/18/2023 20 Creatinine 02/18/2023 1.47 (H) Sodium 02/18/2023 139 Potassium 02/18/2023 4.6 Chloride 02/18/2023 105 CO2 02/18/2023 20 (L) Anion Gap 02/18/2023 14 Calcium, Total 02/18/2023 9.3 Estimated Glomerular Marco Antonio* 02/18/2023 52 (L) ASSESSMENT/PLAN: 1. Anxiety - ICD9: 300.00, ICD10: F41.9 (primary diagnosis) - Stable - Continue current medication regimen. - LORAZEPAM 0.5 MG TABLET 2. Essential hypertension - ICD9: 401.9, ICD10: I10 - Controlled - Continue current medications - Recommend home blood pressure monitoring, to bring results to next visit - Encouraged sodium restriction, DASH or Mediterranean diet - Recommend regular aerobic exercise 3. Hyperlipidemia, unspecified hyperlipidemia type - ICD9: 272.4, ICD10: E78.5 - Controlled - Continue current medications - Counseled on healthy diet and regular exercise 4. Coronary artery disease involving [place] coronary artery of [place] heart without angina pectoris- ICD9: 414.01, ICD10: I25.10 - Continue current medication regimen. 5. Cerebrovascular accident (CVA), unspecified mechanism (HCC) - ICD9: 434.91, ICD10: I63.9 - Cont f/u with Physical Medicine as scheduled - Continue current medication regimen. 6. Chronic insomnia - ICD9: 780.52, ICD10: F51.04 - Continue current medication regimen. 7. Right hemiplegia (HCC) - ICD9: 342.90, ICD10: G81.91 - Cont with Therapy - Continue current medication regimen. - Cont with Spine 8. Aphasia as late effect of cerebrovascular accident - ICD9: 438.11, ICD10: I69.320 - Continue current medication regimen. - Cont f/u with Spine as scheduled - Cont with Therapy 9. Chronic obstructive pulmonary disease, unspecified COPD type (HCC) - ICD9: 496, ICD10: J44.9 - Stable - Continue current medication regimen. - Cont f/u with Pulmonary as scheduled. 10. Left flank pain - ICD9: 789.09, ICD10: R10.9 - Improved with use of Medrol dose sacha 11. Cough - ICD9: 786.2, ICD10: R05.9 - Continue current medication regimen. - FLUTICASONE PROPIONATE 50 MCG/ACTUATION NASAL SPRAY,SUSPENSION 12. Elevated serum creatinine - ICD9: 790.99, ICD10: R79.89 - Stable today, continue to monitor through labs 3 mo f/u with fasting labs. I agree with the Chief Complaint, ROS, and Past Histories independently gathered by the clinical technical support technician and the remaining scribed note accurately describes my personal service to the patient. Medical Decision Making: Problems: Moderate: 2+ stable chronic illnesses Data: Unique test result(s) reviewed: 1 Unique test(s) ordered: 3+ Risk: Moderate: Drug management Medical Decision Making Level: 4 - Moderate Jaci Arroyo MD The documentation for this note was completed by Rachel Buckley Ma acting as scribe for Jaci Arroyo MD. March 07, 2023 3:50 PM. Rachel Buckley Ma documented in this encounterProtestant Hospital08-02-2023 Miscellaneous Notes* Telephone Encounter - Mariano Beckman APRN.CNP - 03/06/2023 12:18 PM EDT The following approved medication requests have been transmitted electronically. Requested Prescriptions Pending Prescriptions Disp Refills busPIRone (BUSPAR) 10 mg tablet 270 tablet 3 Sig: Take 1 tablet by mouth three times daily. potassium chloride (K-TAB) 10 mEq tablet 540 tablet 3 Sig: Take 2 tablets by mouth three times daily. albuterol (PROVENTIL) 2.5 mg /3 mL (0.083 %) nebulizer solution 120 mL 5 Sig: Use 3 mL via nebulizer every 4 hours as needed for wheezing/shortness of breath. Use over 5-15minutes. albuterol HFA (PROVENTIL HFA, VENTOLIN HFA) 90 mcg/actuation inhaler 18 g 5 Sig: Inhale 2 Puffs as instructed every 4 hours as needed for wheezing/shortness of breath. Mariano Beckman APRN.CNP * Telephone Encounter - Kassandra Tai LPN - 03/06/2023 12:14 PM EDT Patient phones requesting refills as follows: Requested Prescriptions Pending Prescriptions Disp Refills busPIRone (BUSPAR) 10 mg tablet 270 tablet 3 Sig: Take 1 tablet by mouth three times daily. potassium chloride (K-TAB) 10 mEq tablet 540 tablet 3 Sig: Take 2 tablets by mouth three times daily. albuterol (PROVENTIL) 2.5 mg /3 mL (0.083 %) nebulizer solution 120 mL 5 Sig: Use 3 mL via nebulizer every 4 hours as needed for wheezing/shortness of breath. Use over 5-15minutes. albuterol HFA (PROVENTIL HFA, VENTOLIN HFA) 90 mcg/actuation inhaler 18 g 5 Sig: Inhale 2 Puffs as instructed every 4 hours as needed for wheezing/shortness of breath. GLENNY-02/26/23 Labs-02/26/23 NOV-03/07/23 Please review and advise. Kassandra Tai LPN documented in this encounterProtestant Hospital07-28-2023 Miscellaneous Notes* Telephone Encounter - Mariano Beckman APRN.CNP - 03/01/2023 2:19 PM EDT The following approved medication requests have been transmitted electronically. Requested Prescriptions Pending Prescriptions Disp Refills ezetimibe (ZETIA) 10 mg tablet 90 tablet 3 Sig: Take 1 tablet by mouth once daily. Mariano Beckman APRN.CNP * Telephone Encounter - Loida Vazquez LPN - 03/01/2023 2:14 PM EDT Patient has been identified by name and date of : Spouse phones for refill(s): Requested Prescriptions Pending Prescriptions Disp Refills ezetimibe (ZETIA) 10 mg tablet 90 tablet 3 Sig: Take 1 tablet by mouth once daily. Date of last office visit in primary care: 02/26/2023, has appt 03/07/2023 Last 2 Encounter Wt Readings: Date: Wt: 02/26/2023 83 kg (183 lb) 12/24/2022 85.3 kg (188 lb) Previous labs/tests for medication: Cholesterol: HDL Cholesterol (mg/dL) Date Value 12/13/2022 58 02/01/2021 36 LDL Cholesterol (mg/dL) Date Value 12/13/2022 56 02/01/2021 82 ALT (U/L) Date Value 12/13/2022 49 02/01/2021 14 Non HDL Cholesterol (mg/dL) Date Value 12/13/2022 84 02/01/2021 113 Please advise. Thank you. Loida Vazquez LPN documented in this encounterProtestant Hospital07-27-2023 Miscellaneous Notes* Telephone Encounter - Therese Casas - 02/28/2023 4:53 PM EDT Left detailed message to inform. Therese Casas MA * Telephone Encounter - Therese Casas - 02/28/2023 2:54 PM EDT Images from the original note were not included. Robin Johansen MD BMP is OK. I don't recall anything about seeing Nephrology and there is no need any way Je * Telephone Encounter - Lora James RN - 02/28/2023 10:41 AM EDT Afshin's , Eli, called. Afshin had a BMP collected on 02/26/2023 and Eli would like to know the results. She states that Dr. Johansen was going to decide if Afshin needs to be referred to a kidney specialist or not. Eli is requesting a return call today. Lora James, RN documented in this encounterProtestant Hospital07-27-2023 Miscellaneous Notes* Telephone Encounter - Monica Cruz Ma - 02/28/2023 8:39 AM EDT Detailed message left on Eli's identified VM. Monica Cruz Ma * Telephone Encounter - Monica Cruz Ma - 02/28/2023 8:37 AM EDT ----- Message from Mariano Beckman APRN.CNP sent at 02/27/2023 7:33 PM EDT ----- Please let patient know that no bacteria grew on culture Marinao Beckman CNP documented in this encounterProtestant Hospital07-19-2023 Miscellaneous Notes* Telephone Encounter - Camila Weaver RN - 02/20/2023 12:52 PM EDT Images from the original note were not included. Spoke with spouse and notified of Dr. Antunez's message and recommendations. Will have labs repeated in one week. Will await the results. DIANE Putnam Deepakraj, MD You 36 minutes ago (12:15 PM) DG Tried to reach the patient over the phone. The plan would be to repeat basic metabolic panel in 1 week. If the serum creatinine shows worsening trend, the losartan may have to be held and patient mayneed nephrology referral. Tank Antunez MD, MD * Telephone Encounter - Camila Weaver RN - 02/20/2023 10:46 AM EDT Received a call from spouse who was returning a call regarding a message left by our office regarding lab results. Camila Weaver RN documented in this encounterProtestant Hospital07-14-2023 Miscellaneous Notes* Telephone Encounter - Monica Cruz Ma - 02/15/2023 3:58 PM EDT The following approved medication requests have been transmitted electronically. Requested Prescriptions Signed Prescriptions Disp Refills Tadalafil (CIALIS) 10 mg tablet 6 tablet 5 Sig: Take one pill 30-60 minutes prior to sexual activity as needed Authorizing Provider: JACI ARROYO Ma * Telephone Encounter - Jaci Arroyo MD - 02/15/2023 3:44 PM EDT Cialis Rx sent to Jessa Arroyo MD * Telephone Encounter - Milan Brunson RN - 02/15/2023 2:00 PM EDT reports patient would like medication to take to aid in being sexually active. Has tried viagra in the past. Asking if pcp could prescribe something else. Jessa Ellis. documented in this encounterProtestant Hospital07-13-2023 Miscellaneous Notes* Telephone Encounter - Dixie Naranjo RN - 02/14/2023 5:43 PM EDT Spoke with patient's . Given message from provider's office. She verbalizes understanding. Dixie Naranjo RN * Telephone Encounter - Monica Cruz Ma - 02/14/2023 5:13 PM EDT Message left for pt to call back. Monica Cruz MA * Telephone Encounter - Jaci Arroyo MD - 02/14/2023 5:07 PM EDT OK for Physiatry consult; they would be the ones to address the Botox question. Jaci Arroyo MD * Telephone Encounter - Dixie Naranjo RN - 02/14/2023 2:24 PM EDT Please see initial note from OT. Patient's calling regarding Botox and Physiatry. Dixie Naranjo RN * Telephone Encounter - Kim Person LPN - 02/13/2023 4:34 PM EDT Pt's Eli states the referral is for a physiatry, see below. Please call Eli when this is completed. Kim Person LPN * Telephone Encounter - Dixie Naranjo RN - 02/13/2023 2:16 PM EDT RUTH ANN Carbajal @ [facility] calling to ask PCP recommendation for tone management in right hand. She is asking if Botox injection is a possibility for this patient? If not, any alternatives. Splinting is difficult due to tightness of thumb against the palm. Dixie Naranjo RN documented in this encounterProtestant Hospital07-13-2023 Miscellaneous Notes* Telephone Encounter - Jaci Arroyo MD - 02/14/2023 4:05 PM EDT Medication was stopped by Cardiology Jaci Arroyo MD * Telephone Encounter - Monica Cruz Ma - 02/14/2023 3:26 PM EDT Images from the original note were not included. documented in this encounterProtestant Hospital06-26-2023 Miscellaneous Notes* Telephone Encounter - Jaci Arroyo MD - 01/28/2023 7:42 PM EDT Since he is on Eliquis he does not need to also be on Plavix Jaci Arroyo MD * Telephone Encounter - Monica Cruz Ma - 01/28/2023 7:20 PM EDT Message attached to refill stated below The original prescription was discontinued on 12/24/2022 by Robin Johansen MD. Renewing this prescription may not be appropriate. Do you want to refill? Monica Cruz Ma documented in this encounterProtestant Hospital06-19-2023 History of Present illness Narrative* Hazel Stubbs Pss - 01/21/2023 12:31 PM EDT POPULATION HEALTH NAVIGATION OUTREACH Action/FYI Patient Outreach: Spoke with patient to schedule in RST. Pt declined RST Consult. He is getting PT/OT/Speech locally. Patient Identified by Name and : YES, via phone Outreach Outcome/Action Spoke to patient / parent / legal guardian: Patient declined Did you use a PCP flex slot to schedule this appointment? No Reason for Outreach Care Gap or Scheduling/Wellness visits Payer: Payor: [facility] MEDICAID / Plan: [facility] MEDICAID / Product Type: Medicaid / Care Gap Reviewed:: Specialty Scheduling Reminder: Reminder note to check Health Maintenance for items below Health Maintenance items due: ABDOMINAL AORTIC ANEURYSM SCREENING Never done PNEUMOCOCCAL: 65+(1 - PCV) Never done SPIROMETRY Never done HEPATITIS C SCREENING Never done DTAP,TDAP,TD(1 - Tdap) Never done ALPHA-1 ANTITRYPSIN DEFICIENCY SCREENING Never done SHINGRIX VACCINE(1 of 2) Never done PROSTATE CANCER SCREENING DISCUSSION due on 06/03/2015 ADVANCE DIRECTIVE DISCUSSION Never done DEPRESSION ASSESSMENT Never done COLORECTAL CANCER SCREENING due on 09/11/2022 Navigation Signature: Hazel Angelicblaise Stubbs Pss January 21, 2023 12:31 PM documented in this encounterProtestant Hospital05-09-2023 Miscellaneous Notes* Telephone Encounter - Jaci Arroyo MD - 12/11/2022 4:15 PM EDT OK for Augmentin as ordered Jaci Arroyo MD * Telephone Encounter - Loida Vazquez LPN - 12/11/2022 3:29 PM EDT Khris from [facility] pharmacy calling the Cefdinir is on manufacture back order. Asking for another rx to replace it please. Please advise documented in this encounterProtestant Hospital05-08-2023 Miscellaneous Notes* Telephone Encounter - Jaci Arroyo MD - 12/10/2022 8:10 PM EDT Noted Jaci Arroyo MD * Telephone Encounter - Jayde Laughlin RN - 12/10/2022 9:40 AM EDT Kylie from [facility] calls and states that she had spoke with patient's and was toldthat patient will not be able to start therapy until January. states that she has a lot going on before then. Kylie thinks that is only interested in patient doing physical therapy. Patient does have swallow study scheduled for 12/26/2022. Please review and advise, Jayde Laughlin RN documented in this encounterProtestant Hospital05-08-2023 Miscellaneous Notes* Telephone Encounter - Christina Ozuna MA - 12/10/2022 2:38 PM EDT Patient's notified of results. The following approved medication requests have been transmitted electronically. Requested Prescriptions Signed Prescriptions Disp Refills doxycycline (VIBRA-TABS) 100 mg tablet 20 tablet 0 Sig: Take 1 tablet by mouth twice daily for 10 days. Authorizing Provider: JACI ARROYO MA * Telephone Encounter - Jaci Arroyo MD - 12/10/2022 2:22 PM EDT I would suggest a ten day course of doxycycline; Rx sent to [facility] Jaci Arroyo MD * Telephone Encounter - Lacy Ding LPN - 12/10/2022 10:41 AM EDT Pt's calls to update doctor on pt's upper respiratory infection. She states he is on his last dose today. During the day ok but at night still very congested. Coughing terrible. Asking if you may want to call in something? If so they use [facility] Archie. documented in this encounterProtestant Hospital05-04-2023 Miscellaneous Notes* Telephone Encounter - Monica Cruz Ma - 12/06/2022 2:10 PM EDT Swallow test and demo faxed to [facility]. Pt Eli via identified VM. ST order faxed to [facility]. Monica Cruz Ma * Telephone Encounter - Jaci Arroyo MD - 12/06/2022 1:52 PM EDT Orders printed Jaci Arroyo MD * Telephone Encounter - Kim Person LPN - 12/06/2022 12:22 PM EDT Nayeli from [facility] speech therapy calling to report she was out to see pt today & he has met his goals & is discharged to FU with out pt therapy. An order for speech therapy was faxed to [facility] yesterday but Nayeli is requesting the order to include Speech Therapy for out pt therapy for communication with device in dysphasia. Fax to [facility]. Nayeli states pt's is requesting an order for a modified barium swallow to be faxed to registration at [facility]. Order must include modified And to call Eli when order has been sent. Kim Person LPN documented in this encounterProtestant Hospital05-04-2023 Miscellaneous Notes* Telephone Encounter - Monica Cruz Ma - 12/06/2022 12:00 PM EDT Orders faxed to [facility]. Monica Cruz Ma * Telephone Encounter - Jaci Arroyo MD - 12/06/2022 8:32 AM EDT Orders filed Jaci Arroyo MD * Telephone Encounter - Loida Vazquez LPN - 12/05/2022 2:04 PM EDT Valentine from [facility] Home Health calling asking for orders to be faxed to [facility] for PT/OT, speech Therapy as outpatient to start next week. is working on transportation. Just asking to put on PTorder that patient CVA was 6 years ago. Pending orders Please advise documented in this encounterProtestant Hospital05-04-2023 Miscellaneous Notes* Telephone Encounter - Kimo Adamson Ma - 12/06/2022 8:36 AM EDT PA was approved and was notified Kimo Adamson Ma * Telephone Encounter - Kimo Adamson Ma - 12/05/2022 11:50 AM EDT Electronic PA crerated Kimo Adamson Ma * Telephone Encounter - Camila Downey LPN - 12/05/2022 11:11 AM EDT Pt.s calling and states Ativan needs prior authorization. Please advise. documented in this encounterProtestant Hospital05-02-2023 History of Present illness Narrative* Cheyanne Wells RT(R) - 12/04/2022 4:40 PM EDT Radiology Service Progress Note PATIENT NAME: Afshin Zee DATE OF SERVICE: December 04, 2022 TIME: 4:45 PM PATIENT IDENTITY VERIFICATION COMPLETED USING TWO (2) IDENTIFIERS: Name and Date of confirmedby patient verbally. FALL SCREENING: Has the patient had 2 falls in the last year or 1 fall with injury or currently using an Ambulatory Assistive Device (Walker, Cane, Wheelchair, Crutches, etc.)? Yes, Patient High Riskfor Falls What interventions were put in place to prevent falls during this visit? Offered Assistance with Transfers/Clothing, Instructed Patient to Remain Seated (Not on Exam Table) Until Exam, and Increased Observations by Caregivers PATIENT GENDER DATA: Male PATIENT RELEVANT IMPLANT DATA REVIEWED: Yes RADIOLOGY DEPARTMENT: General X-ray: Exam(s) Completed: Chest X-Ray PERIPHERAL IV DATA: Not applicable SIGNED BY: RT Fernando(R) December 04, 2022 4:45 PM documented in this encounterProtestant Hospital05-02-2023 Miscellaneous Notes* Telephone Encounter - Jaci Arroyo MD - 12/04/2022 4:13 PM EDT Noted Jaci Arroyo MD * Telephone Encounter - Jayde Laughlin RN - 12/04/2022 1:16 PM EDT DEB Reinoso from [facility] calls to report that patient had fallen on Saturday12/01/2022. Patient got up from car without 's assistance and fell. No injuries noted. No call back need. Jayde Laughlin RN documented in this encounterProtestant Hospital05-02-2023 History of Present illness Narrative* Jaci Arroyo MD - 12/04/2022 4:00 PM EDT Chief Complaint Patient presents with: Cough: Continues, had pneumonia recently HPI Afshin Zee is a 67 year old male who presents here today to discuss possible hospice. Pt , Eli here today with pt. admits to being over protective of him. Eli called into the office yesterday with report that pt is still coughing, she hears gurgling when he breaths and coughs, worse at night and eating. Is not choking. He is SOB. No swelling in thefeet or ankles. Pt had pneumonia a couple weeks ago and continues to have a deep cough and night sweats. Still using home O2 at present time. Has been taking Coricidin but not helping, using Vicks vapor rub. His coughing is worse at night. He's completed his abx. He follows with [facility] Pulmonary, but recently got a referral to [facility] and is scheduled to see them in January. states that pt should probably be in the hospital but does not want to go to the hospital any longer. has askedpt multiple times during office visit if he was sure he didn't want to go to hospital anymore and pt states he is sure, no more. They would like to discuss his current conditions and if hospice referral is needed that can be done. He does have an advanced directive on file, is POA. Past medical history, appointments, medications, allergies reviewed. Previous Medical History PAST MEDICAL HISTORY Diagnosis Date Acute cerebral infarction (HCC) left Aneurysm (HCC) Atrial fibrillation (HCC) 11/2016 Balanitis CAD (coronary artery disease) Carotid stenosis Dysphasia Hyperglycemia Hypertension PVD (peripheral vascular disease) (HCC) Respiratory failure (HCC) hypoxic-ventilator dependent Stroke (cerebrum) (HCC) Tobacco abuse Previous Surgical History PAST SURGICAL HISTORY Procedure Laterality Date CABG (5) VENOUS GRAFTS & ARTERIAL GRAFT(S) 10/30/2016 CABG CONSULT 10/30/2016 multi vessel HEART CATHETERIZATION 09/17/2016 TRACHEOSTOMY HX Family History FAMILY HISTORY Problem Relation Age of Onset Heart Mother CO in her 70s, pacemaker Diabetes Mother Stroke Father other (AAA) Father other (CAD) Brother Hypertension Brother Patient Allergies ALLERGIES Allergen Reactions Sulfate Salt Hives Zpak [Azithromycin] Hives Lisinopril Swelling Lip swelling after starting lisinopril. Current Medications Current Outpatient Medications on File Prior to Visit Medication Sig traZODone (DESYREL) 50 mg tablet take 1 tablet by mouth at bedtime metoprolol tartrate, short acting, (LOPRESSOR) 25 mg tablet Take 0.5 tablets by mouth twice daily. Hold if heart rate is less than 60 baclofen (LIORESAL) 10 mg tablet Take 0.5 tablets by mouth three times daily. tiotropium bromide (SPIRIVA RESPIMAT) 2.5 mcg/actuation inhaler Inhale as instructed. hydroCHLOROthiazide (HYDRODIURIL, ESIDRIX) 12.5 mg tablet Take 1 tablet by mouth once daily. losartan (COZAAR) 25 mg tablet take 1 tablet by mouth once daily miconazole (MONISTAT-DERM,LANCE) 2 % cream Apply to affected area twice daily. traZODone (DESYREL) 100 mg tablet Take 1 tablet by mouth daily at bedtime. LORazepam (ATIVAN) 0.5 mg Take 1 tablet by mouth three times daily as needed for up to 90 days. busPIRone (BUSPAR) 10 mg tablet Take 1 tablet by mouth three times daily. potassium chloride (K-TAB) 10 mEq tablet Take 2 tablets by mouth three times daily. albuterol (PROVENTIL) 2.5 mg /3 mL (0.083 %) nebulizer solution Use 3 mL via nebulizer every 4 hours as needed for wheezing/shortness of breath. Use over 5-15minutes. multivitamin tablet Take 1 tablet by mouth once daily. amiodarone (PACERONE) 100 mg tablet Take 1 tablet by mouth once daily. Do not take if heart rate isless than 40 amLODIPine (NORVASC) 10 mg tablet Take 1/2 tablet twice daily (Patient taking differently: 5 mg. Take 1/2 tablet twice daily) atorvastatin (LIPITOR) 40 mg tablet Take 1 tablet by mouth once daily. clopidogrel (PLAVIX) 75 mg tablet Take 1 tablet by mouth once daily. apixaban (ELIQUIS) 5 mg tab(s) TAKE ONE (1) TABLET BY MOUTH TWICE DAILY escitalopram oxalate (LEXAPRO) 20 mg tablet Take 1 tablet by mouth once daily. famotidine (PEPCID) 20 mg tablet Take 1 tablet by mouth at bedtime as needed. ezetimibe (ZETIA) 10 mg tablet Take 1 tablet by mouth once daily. fluticasone (FLONASE) 50 mcg/actuation nasal spray Use 1 [place] in each nostril twice daily. Rinse mouth after use. albuterol HFA (PROVENTIL HFA, VENTOLIN HFA) 90 mcg/actuation inhaler Inhale 2 Puffs as instructed every 4 hours as needed for Wheezing/Shortness of Breath. Blood Pressure Monitor kit 1 application twice daily. Measure patient for correct size. Patient needs cuff for left arm readings. COMPOUNDED PRESCRIPTION Articulating AFO foot brace for right leg. Send to [employer]. Dx: I63.9 COMPOUNDED PRESCRIPTION EMBER WALKER DX I63.9 weight 162 # Diaper,Brief, Adult,Disposable (DEPEND REAL FIT BRIEF MEN L/XL) misc 1 Each as needed. Blood Pressure Monitor kit 1 Kit once daily. Please measure patient for correct size. Current Facility-Administered Medications on File Prior to Visit Medication perflutren lipid microspheres 1.3 mL in NaCl (PF) 0.9% 10 mL injection (DEFINITY) sodium chloride 0.9 % (flush) 10 mL (BD POSIFLUSH) Social History Social History Tobacco Use Smoking status: Former Years: 45.00 Types: Cigarettes Quit date: 07/08/2016 Years since quittin.4 Smokeless tobacco: Never Tobacco comments: 07/08/2016 Vaping Use Vaping Use: Never used Substance Use Topics Alcohol use: No Drug use: Never EXAM: BP 120/70 Pulse (!) 56 Resp 16 Wt 78.9 kg (174 lb) SpO2 94% BMI 24.97 kg/m General Appearance: Well appearing, alert, in no acute distress, well-hydrated, well nourished.. Lungs: Lungs clear to auscultation. No rhonchi, rales. Positive findings: wheezing . Heart: RRR without murmur, gallop, or rubs. No ectopy. Health Maintenance List ABDOMINAL AORTIC ANEURYSM SCREENING Never done PNEUMOCOCCAL: 65+(1 - PCV) Never done SPIROMETRY Never done HEPATITIS C SCREENING Never done DTAP,TDAP,TD(1 - Tdap) Never done ALPHA-1 ANTITRYPSIN DEFICIENCY SCREENING Never done SHINGRIX VACCINE(1 of 2) Never done PROSTATE CANCER SCREENING DISCUSSION due on 06/03/2015 ADVANCE DIRECTIVE DISCUSSION Never done DEPRESSION ASSESSMENT Never done COLORECTAL CANCER SCREENING due on 09/11/2022 LDL CHOLESTEROL due on 10/02/2022 ANNUAL PCP TEAM CHRONIC DISEASE VISIT due on 11/18/2023 BP CONTROLLED (<130/80) due on 11/18/2023 DIABETES SCREEN due on 10/01/2025 LIPID SCREEN due on 10/02/2026 INFLUENZA Completed COVID-19 VACCINE Completed Data reviewed None ASSESSMENT/PLAN: 1. Acute cough - ICD9: 786.2, ICD10: R05.1 (primary diagnosis) Get CXR today Start 9 day taper of prednisone - XR CHEST 2V FRONTAL/LAT 2. Anxiety - ICD9: 300.00, ICD10: F41.9 Stable Increase to 1-2 pills TID prn - LORAZEPAM 0.5 MG TABLET Follow up 3 months or as needed . Appt for next week cancelled. Will notify of xray results. I agree with the Chief Complaint, ROS, and Past Histories independently gathered by the clinical technical support technician and the remaining scribed note accurately describes my personal service to the patient. Medical Decision Making: Problems: Moderate: 1+ chronic illnesses with change and 2+ stable chronic illnesses Data: Unique test(s) ordered: 1 Risk: Moderate: Drug management Medical Decision Making Level: 4 - Moderate Jaci Arroyo MD The documentation for this note was completed by Monica Cruz Ma acting as scribe for Jaci Arroyo MD. December 04, 2022 3:56 PM. Monica Cruz Ma documented [facility] History of Past illness Narrative* Problem Noted Date Diagnosed Date Resolved Date Tracheostomy status 12/04/2022 02/27/20 Elevated blood pressure 06/06/201003/05 documented as of this encounter (statuses as of 02/28/2023) [address]02-2023 History of Past illness Narrative* Problem Noted Date Diagnosed Date Resolved Date Tracheostomy status 12/04/2022 02/27/20 23 Elevated blood pressure 06/06/201003/05 documented as of this encounter (statuses as of 03/01/2023) [facility] History of Past illness Narrative* Problem Noted Date Diagnosed Date Resolved Date Tracheostomy status 12/04/2022 02/27/20 23 Elevated blood pressure 06/06/201003/05 documented as of this encounter (statuses as of 03/01/2023) [facility] History of Past illness Narrative* Problem Noted Date Diagnosed Date Resolved Date Tracheostomy status 12/04/2022 02/27/20 23 Elevated blood pressure 06/06/201003/05 documented as of this encounter (statuses as of 03/06/2023) [facility] History of Past illness Narrative* Problem Noted Date Diagnosed Date Resolved Date Tracheostomy status 12/04/2022 02/27/20 23 Elevated blood pressure 06/06/201003/05 documented as of this encounter (statuses as of 03/08/2023) [facility] History of Past illness Narrative* Problem Noted Date Diagnosed Date Resolved Date Tracheostomy status 12/04/2022 02/27/20 23 Elevated blood pressure 06/06/201003/05 documented as of this encounter (statuses as of 03/12/2023) [facility] Miscellaneous Notes* Telephone Encounter - Dixie Naranjo RN - 12/03/2022 1:08 PM EDT Spoke with patient's . Given message from provider's office. Patient's verbalizes understanding. Dixie Naranjo RN * Telephone Encounter - Jaci Arroyo MD - 12/03/2022 12:28 PM EDT OK for appt tomorrow as scheduled Jaci Arroyo MD * Telephone Encounter - Amaya Kessler RN - 12/03/2022 8:51 AM EDT Patient's Eli calling regarding patient. Requesting to make an appt with Dr. Arroyo only, to have patient evaluated and discuss questions and discuss possible Hospice referral. Eli states patient had pneumonia a couple weeks ago and completed antibiotics. Reports patient continues with a deep cough and occasional sweats. Continues home oxygen. denies any severe sx's for pt at this time. states patient should probably be in the hospital but does not want togo to the hospital any longer. They would like to discuss his current condition as well as Hospice services. Appt made with Dr. Arroyo for 12/04/22 as requested. Please call patient if PCP office has other advise. Thank you. documented in this encounterProtest[facility]04-27-2023 Miscellaneous Notes* Telephone Encounter - Jaci Arroyo MD - 11/29/2022 2:23 PM EDT Noted and agree Jaci Arroyo MD * Telephone Encounter - Loida Vazquez LPN - 11/29/2022 11:29 AM EDT Nayeli Whitmore from [facility] Home Health calling with plan of care beginning 12/02 week one visit weekly for 1 week working on AAC and diet texture management. documented in this encounterProtestant Hospital04-25-2023 Miscellaneous Notes* Telephone Encounter - Jaci Arroyo MD - 11/27/2022 4:37 PM EDT Noted Jaci Arroyo MD * Telephone Encounter - Dimple Agustin LPN - 11/27/2022 3:47 PM EDT Valentine with [facility] OT calls to report she saw pt today (delay of care due to spouse's request). OT will see pt twice a week x 2 weeks to continue working on ADL's and IDL's. Valentine reports pt's resting HR today was 49-60. Pt has hx of A-fib. Only contact Valentine if there are any new orders or questions. Dimple Agustin LPN documented in this encounterProtestant Hospital04-24-2023 Miscellaneous Notes* Telephone Encounter - Jaci Arroyo MD - 11/26/2022 2:04 PM EDT Noted and agree Jaci Arroyo MD * Telephone Encounter - Loida Vazquez LPN - 11/26/2022 1:11 PM EDT Jessie from [facility] Home Health calling with PT plan of care, 2 visits weekly for 3 weeks working on endurance, balance and gait training. documented in this encounterProtestant Hospital04-21-2023 Miscellaneous Notes* Telephone Encounter - JAKI Pelletier - 11/23/2022 1:39 PM EDT 1st attempt to call patient, left voicemail. JAKI Pelletier November 23, 2022 1:39 PM * Telephone Encounter - Therese Casas - 11/23/2022 9:33 AM EDT ECHO ordered by Dr. Patten. Routing to [facility] for scheduling. Therese Casas * Telephone Encounter - Kia Waters LPN - 11/23/2022 8:42 AM EDT Eli called. Verified name and date of of patient. Eli states calling back to get her scheduled for testing (ECHO) since he is no longer in the hospital. Kia Waters LPN documented in this encounterProtestant Hospital04-17-2023 Miscellaneous Notes* Telephone Encounter - Monica Cruz Ma - 11/19/2022 3:47 PM EDT Detailed message left on Nayeli's identified VM. Monica Cruz Ma * Telephone Encounter - Jaci Arroyo MD - 11/19/2022 3:43 PM EDT OK for verbal order for delay of care as requested Jaci Arroyo MD * Telephone Encounter - Milan Brunson RN - 11/19/2022 2:20 PM [facility] of care. Reports she was suppose to see patient today, but per , patient was admitted to [facility] overnight, with fluid around lungs/heart and hospital was consulting with cath lab manager. Per , plan was to d/c to home today, dependingon cath lab manager. Please phone Nayeli with verbal. documented in this encounterProtestant Hospital04-17-2023 Hospital Discharge instructions Patient Education 11/19/2022 09:44:44 Community-Acquired Pneumonia, Adult, Escp-[id number] Community-Acquired Pneumonia, Adult Pneumonia is an infection of the lungs. It causes swelling in the airways of the lungs. Mucus and fluid may also build up inside the airways. One type of pneumonia can happen while a person is in a hospital. A different type can happen when a person is not in a hospital (community-acquired pneumonia). What are the causes? This condition is caused by germs (viruses, bacteria, or fungi). Some types of germs can be passed from one person to another. This can happen when you breathe in droplets from the cough or sneeze ofan infected person. What increases the risk? You are more likely to develop this condition if you: Have a long-term (chronic) disease, such as: ?Chronic obstructive pulmonary disease (COPD). ?Asthma. ?Cystic fibrosis. ?Congestive heart failure. ?Diabetes. ?Kidney disease. Have HIV. Have sickle cell disease. Have had your spleen removed. Do not take good care of your teeth and mouth (poor dental hygiene). Have a medical condition that increases the risk of breathing in droplets from your own mouth and nose. Have a weakened body defense system (immune system). Are a smoker. Travel to areas where the germs that cause this illness are common. Are around certain animals or the places they live. What are the signs or symptoms? A dry cough. A wet (productive) cough. Fever. Sweating. Chest pain. This often happens when breathing deeply or coughing. Fast breathing or trouble breathing. Shortness of breath. Shaking chills. Feeling tired (fatigue). Muscle aches. How is this treated? Treatment for this condition depends on many things. Most adults can be treated at home. In some cases, treatment must happen in a hospital. Treatment may include: Medicines given by mouth or through an IV tube. Being given extra oxygen. Respiratory therapy. In rare cases, treatment for very bad pneumonia may include: Using a machine to help you breathe. Having a procedure to remove fluid from around your lungs. Follow these instructions at home: Medicines Take tsmz-jtn-tbcwtxs and prescription medicines only as told by your doctor. ?Only take cough medicine if you are losing sleep. If you were prescribed an antibiotic medicine, take it as told by your doctor. Do not stop taking the antibiotic even if you start to feel better. General instructions Sleep with your head and neck raised (elevated). You can do this by sleeping in a recliner or by putting a few pillows under your head. Rest as needed. Get at least 8 hours of sleep each night. Drink enough water to keep your pee (urine) pale yellow. Eat a healthy diet that includes plenty of vegetables, fruits, whole grains, low-fat dairy products, and lean protein. Do not use any products that contain nicotine or tobacco. These include cigarettes, e-cigarettes, and chewing tobacco. If you need help quitting, ask your doctor. Keep all follow-up visits as told by your doctor. This is important. How is this prevented? A shot (vaccine) can help prevent pneumonia. Shots are often suggested for: People older than 65 years of age. People older than 19 years of age who: ?Are having cancer treatment. ?Have long-term (chronic) lung disease. ?Have problems with their body's defense system. You may also prevent pneumonia if you take these actions: Get the flu (influenza) shot every year. Go to the dentist as often as told. Wash your hands often. If you cannot use soap and water, use hand sales support manager. Contact a doctor if: You have a fever. You lose sleep because your cough medicine does not help. Get help right away if: You are short of breath and it gets worse. You have more chest pain. Your sickness gets worse. This is very serious if: ?You are an older adult. ?Your body's defense system is weak. You cough up blood. Summary Pneumonia is an infection of the lungs. Most adults can be treated at home. Some will need treatment in a hospital. Drink enough water to keep your pee pale yellow. Get at least 8 hours of sleep each night. This information is not intended to replace advice given to you by your health care provider. Make sure you discuss any questions you have with your health care provider. Document Released: 01/07/2009 Document Revised: 11/11/2019 Document Reviewed: 03/19/2019 [employer] Patient Education 2020 [place] [employer] Follow Up Care 11/18/2022 13:04:23 With:JACI ARROYO MD Address: [address] [place] [address]- When:3-5 days Comments:Please call to schedule your post-hospital follow-up appointment. [facility] 04-17-2023 Note Discharge Instructions Thank you for allowing [facility] to assist you with your healthcare needs. The following is importantdischarge information regarding your hospital visit. 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 You did not have any need for supplemental oxygen. Your x-ray showed pneumonia with possible fluid in the lungs. No history of heart failure. You did not appear to be in heart failure exacerbation. You had no fever. No elevated white blood cell count. Your lungs sounded good. You had no swelling elsewhere. I would recommend that you follow-up with your cath lab manager if there is continued concern for heart failure. Follow Up Appointments Follow Up with JACI ARROYO MD When Within 3-5 days Why: Please call to schedule your post-hospital follow-up appointment. Where: [address] [place] [address]- The Following Activity and Diet Have Been Ordered for You Discharge Activity - Ordered -- Resume your pre-hospitalization activity, 11/19/22 8:53:00 EDT Discharge Diet - Ordered -- No changes were made to your diet during your hospital stay. Please resume your pre hospitalization diet on discharge., 11/19/22 8:53:00 EDT The Following Treatments Have Been Ordered for You Discharge Labs No qualifying data available. Discharge Radiology No qualifying data available. Other Therapies No qualifying data available. Post Acute Orders No qualifying data available. Allergies lisinopril (Lip swelling) azithromycin sulfa drug Medications Please ask your primary doctor or pharmacist before taking any other medication not listed, including over the counter drugs, herbal medications, vitamins and or supplements as they may interact withyour home medications. What How Much When Instructions Last Dose Unchanged hydroCHLOROthiazide (hydroCHLOROthiazide 12.5 mg oral tablet) 1 tab(s) by mouth Once a day 11/19/22 at 0836am Changed amLODIPine (amLODIPine 10 mg oral tablet) 0.5 tab(s) by mouth Once a day TAKE 1/ 2 TABLET BY MOUTH TWICE DAILY 11/19/22 at 0836am Changed amiodarone (amiodarone 100 mg oral tablet) 1 tab(s) by mouth Once a day TAKE 1 TABLET BY MOUTH ONCE DAILY *DO NOT TAKE IF HEART RATE IS LESS THAN 40* 11/19/22 at 0836am Changed apixaban (Eliquis 5 mg oral tablet) 1 tab(s) by mouth Two (2) times a day TAKE ONE (1) TABLET BY MOUTH TWICE DAILY 11/19/22 at 0836am Changed atorvastatin (atorvastatin 40 mg oral tablet) 1 tab(s) by mouth Once a day TAKE 1 TABLET BY MOUTH ONCE DAILY none today Changed baclofen (baclofen 10 mg oral tablet) 0.5 tab(s) by mouth Three (3) times a day TAKE 1/ 2 TABLET BY MOUTH THREE TIMES A DAY 11/19/22 at 0836am Changed escitalopram (escitalopram 20 mg oral tablet) 1 tab(s) by mouth Once a day TAKE 1 TABLET BY MOUTH ONCE DAILY 11/19/22 at 0836am Changed ezetimibe (ezetimibe 10 mg oral tablet) 1 tab(s) by mouth Once a day TAKE 1 TABLET BY MOUTH ONCE DAILY 11/19/22 at 0836am Changed potassium chloride (Potassium Chloride (Jdc-Mhrg-Ufk 10) 10 mEq oral tablet, extended release) 2 tab(s) by mouth Three (3) times a day TAKE 2 TABLETS BY MOUTH THREE TIMES A DAY 11/19/22 at 0836am Changed traZODone (traZODone 100 mg oral tablet) 1 tab(s) by mouth Daily at bedtime TAKE 1 TABLET BY MOUTH DAILY AT BEDTIME none today Unchanged amoxicillin-clavulanate (amoxicillin-clavulanate 875 mg-125 mg oral tablet) 1 tab(s) by mouth Every 12 hours 11/19/22 at 0836am Unchanged budesonide-formoterol (Symbicort 160 mcg-4.5 mcg/ inh Inhaler) 2 puff(s) by inhalation Two (2) times a day none today Unchanged busPIRone (busPIRone 10 mg oral tablet) 1 tab(s) by mouth Three (3) times a day 11/19/22 at 0836am Unchanged clopidogrel (clopidogrel 75 mg oral tablet) 1 tab(s) by mouth Every day 11/19/22 at 0836am Unchanged famotidine (famotidine 20 mg oral tablet) 1 tab(s) by mouth Daily at bedtime none today Unchanged losartan (losartan 25 mg oral tablet) 1 tab(s) by mouth Once a day 11/19/22 at 0836am Unchanged metoprolol (Lopressor 25mg--USE metoprolol tartrate 25 mg oral tablet) 0.5 tab(s) Two (2) times a day 11/19/22 at 0836am Unchanged multivitamin (Multivitamin) 1 tab(s) by mouth Every day none today Unchanged nystatin topical (nystatin 100,000 units/ g topical cream) 1 application Topical Three (3) times a day none today Unchanged tiotropium (Spiriva Respimat 1.25 mcg/ inh inhalation aerosol) 2 puff(s) by inhalation Once a day none today What How Much When Comments Stop Taking doxycycline (doxycycline monohydrate 100 mg oral capsule) 1cap Two (2) times a day Please take this list to your next doctor s visit. Bring all medications you take, including over the counter medications, herbals and other supplements with you to your doctor s visit. Patients and families are reminded to discard old lists and to update any records with all medication providers or retail pharmacies. Education Materials Community-Acquired Pneumonia, Adult Pneumonia is an infection of the lungs. It causes swelling in the airways of the lungs. Mucus and fluid may also build up inside the airways. One type of pneumonia can happen while a person is in a hospital. A different type can happen when a person is not in a hospital (community-acquired pneumonia). What are the causes? This condition is caused by germs (viruses, bacteria, or fungi). Some types of germs can be passed from one person to another. This can happen when you breathe in droplets from the cough or sneeze ofan infected person. What increases the risk? You are more likely to develop this condition if you: Have a long-term (chronic) disease, such as: ? Chronic obstructive pulmonary disease (COPD). ? Asthma. ? Cystic fibrosis. ? Congestive heart failure. ? Diabetes. ? Kidney disease. Have HIV. Have sickle cell disease. Have had your spleen removed. Do not take good care of your teeth and mouth (poor dental hygiene). Have a medical condition that increases the risk of breathing in droplets from your own mouth and nose. Have a weakened body defense system (immune system). Are a smoker. Travel to areas where the germs that cause this illness are common. Are around certain animals or the places they live. What are the signs or symptoms? A dry cough. A wet (productive) cough. Fever. Sweating. Chest pain. This often happens when breathing deeply or coughing. Fast breathing or trouble breathing. Shortness of breath. Shaking chills. Feeling tired (fatigue). Muscle aches. How is this treated? Treatment for this condition depends on many things. Most adults can be treated at home. In some cases, treatment must happen in a hospital. Treatment may include: Medicines given by mouth or through an IV tube. Being given extra oxygen. Respiratory therapy. In rare cases, treatment for very bad pneumonia may include: Using a machine to help you breathe. Having a procedure to remove fluid from around your lungs. Follow these instructions at home: Medicines Take likq-zto-efxkduk and prescription medicines only as told by your doctor. ? Only take cough medicine if you are losing sleep. If you were prescribed an antibiotic medicine, take it as told by your doctor. Do not stop taking the antibiotic even if you start to feel better. General instructions Sleep with your head and neck raised (elevated). You can do this by sleeping in a recliner or by putting a few pillows under your head. Rest as needed. Get at least 8 hours of sleep each night. Drink enough water to keep your pee (urine) pale yellow. Eat a healthy diet that includes plenty of vegetables, fruits, whole grains, low-fat dairy products, and lean protein. Do not use any products that contain nicotine or tobacco. These include cigarettes, e-cigarettes, and chewing tobacco. If you need help quitting, ask your doctor. Keep all follow-up visits as told by your doctor. This is important. How is this prevented? A shot (vaccine) can help prevent pneumonia. Shots are often suggested for: People older than 65 years of age. People older than 19 years of age who: ? Are having cancer treatment. ? Have long-term (chronic) lung disease. ? Have problems with their body's defense system. You may also prevent pneumonia if you take these actions: Get the flu (influenza) shot every year. Go to the dentist as often as told. Wash your hands often. If you cannot use soap and water, use hand sales support manager. Contact a doctor if: You have a fever. You lose sleep because your cough medicine does not help. Get help right away if: You are short of breath and it gets worse. You have more chest pain. Your sickness gets worse. This is very serious if: ? You are an older adult. ? Your body's defense system is weak. You cough up blood. Summary Pneumonia is an infection of the lungs. Most adults can be treated at home. Some will need treatment in a hospital. Drink enough water to keep your pee pale yellow. Get at least 8 hours of sleep each night. This information is not intended to replace advice given to you by your health care provider. Make sure you discuss any questions you have with your health care provider. Document Released: 01/07/2009 Document Revised: 11/11/2019 Document Reviewed: 03/19/2019 [employer] Patient Education 2020 [place] [employer] Additional Information VACCINATE! IT SAVES LIVES! Members of the community who have not yet received the COVID-19 vaccine and would like to receive it can visit one of [facility] vaccine clinics. There are many vaccine clinic locations within the [facility]. For locations and available times, please visit https://gettheshot.coronavirus.[place].gov/. It is important to note that some COVID mobile vaccine clinics are held outdoors and may be canceled in rainy or stormy conditions. To learn more about pediatric vaccinations (ages 5-11), we invite you to visit the [facility] webpage. https://www.[facility].org/pages/9999-Inrpi-Miehhewjsma-Xeisnkucjk-Yvwch-Zhi stions.htmlTo learn more about the COVID-19 vaccine, we invite you to visit the CDC website for a list of frequently asked questions. https://www.cdc.gov/coronavirus/2019-ncov/vaccines/faq.html [facility] Patient Portal Access Instructions: Stay connected with your healthcare team and access your personal medical information anytime with the [facility] Patient Portal.If you would like a full copy of your medical records, please contact the [facility] Medical Records Department, Saturday through Saturday between 8a.m. and 4:30p.m. Please follow the directions below to access the portal: 1.Access the email account you provided upon registration to the [facility].2.Look for an invitation email from [facility].3.Open the email and access the invitation link: Accept Invitation to [employer]4.Fill in the required krueger to create your account. Sign into [email or web address] with your username and password that you created in the above steps to stay up to date. You can then view a summary of results, a summary of your visits, and the ability to download your summaries to your computer or send the information securely to a physician. Remember that your healthcare information is confidential, so carefully consider who you will allow to register on the [employer] Patient Portal for access to your information. You can also access the [employer] Patient Portal on the ahoyDoc. Simply click on Health Records under [employer] and then click on the [employer] logo. HOW TO SAFELY DISPOSE OF PRESCRIPTION MEDICATIONS Please use one of the following methods to safely dispose of your unused medications. 1.Use a drug disposal kit: the drug disposal pouch allows you to safely discard your old and unuseddrugs. Ask your nurse to give you one when you are discharged.2.Visit a local take-back location: Many local pharmacies and police departments have programs that collect old and unwanted prescriptiondrugs. Call your local pharmacy or go to http://ZestFinance.Phylogy/1Y4Kv4n to find one close to you.3.Make use of household items: Use cat litter or old coffee grounds to dispose medications if other options arenot available. Mix your drugs with these household products, seal them in an airtight container andthrow it into the garbage. Call [facility]: [phone] to be sure your drugs can be disposed of in this way. Some medicines may require a different approach.4.Never flush your medications down the toilet. IF YOU HAVE BEEN PRESCRIBED AN OPIOID FOR PAIN If you have been prescribed an opioid (such as hydrocodone, oxycodone or morphine), it is critical to understand the possible side effects and risks of opioid pain medications. Even when taken as directed, opioids can have several side effects including: Tolerance, meaning you might need to take more of a medication for the same pain relief. Nausea, vomiting and/or constipation. Sleepiness, dizziness, dry mouth, confusion, depression or itching. Physical dependence, meaning you have withdrawal symptoms when a medication is stopped, can develop within a few days. KNOW YOUR RESPONSIBILITIES It is important to know exactly how much and how often to take the opioid pain medications you are prescribed. Never take opioids in higher amounts or more often than prescribed. Do not combine opioids with alcohol or other drugs that cause drowsiness, such as benzodiazepines, also known as benzos, including diazepam and alprazolam, muscle relaxants or sleep aids. Never sell or share prescription opioids. This is illegal. Store opioids in a secure place and out of reach of others (including children, family, friends and visitors). The last page of this document has been signed and retained as a CHART COPY. Signatures Patient Education Materials Community-Acquired Pneumonia, Adult, [id number] Medication Leaflets My discharge plan and instructions have been reviewed and explained to me and I,AFSHIN ZEE understand my current condition and have read and understand these discharge instructions. I have receiveda written copy of the plan/instructions. If I have questions, I am aware that I should contact my do ctor. 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 There is mild vascular congestion, but lung markings are less prominent than on chest x-ray from the prior day. There is mild atelectasis at the left lung base. No pleural fluid or pneumothorax is present. No acute skeletal abnormality is detected. Sternal wire sutures are intact. IMPRESSION: Mild pulmonary vascular congestion showing improvement from the prior day. Mild left basilar atelectasis. Interpreted by: Joel Bowen MD Preliminary Report By: Joel Bowen MD Electronically signed By Joel Bowen MD Dictated Date: 11/19/2022 7:49:18 AM Prelim Date: 11/19/2022 7:51:22 AM Sign Date: 11/19/2022 7:51:22 AM Ordering [facility]04-17-2023 Note ORIGINAL EXAMINATION: TWO XRAY VIEWS OF THE CHEST 11/19/2022 7:46 am COMPARISON: Chest x-ray on 11/18/2022 HISTORY: ORDERING SYSTEM PROVIDED HISTORY: Reason for Exam: PNA FINDINGS: The heart size is at the upper limits of normal. There is mild vascular congestion, but lung markings are less prominent than on chest x-ray from the prior day. There is mild atelectasis at the left lung base. No pleural fluid or pneumothorax is present. No acute skeletal abnormality is detected. Sternal wire sutures are intact. IMPRESSION: Mild pulmonary vascular congestion showing improvement from the prior day. Mild left basilar atelectasis. Interpreted by: Joel Bowen MD Preliminary Report By: Joel Bowen MD Electronically signed By Joel Bowen MD Dictated Date: 11/19/2022 7:49:18 AM Prelim Date: 11/19/2022 7:51:22 AM Sign Date: 11/19/2022 7:51:22 AM Ordering Provider[facility] Note Date of Service 11/18/2022 Chief Complaint Pt was recently D/C'd from [facility] with aspiration pneumonia. states he is not over it. States he is still getting short of breath. History of Present Illness 67-year-old male with past medical history significant for atrial fibrillation, CVA with expressiveaphasia, hypertension, CAD s/p CABG 2017 , PVD, COPD, DARON, HLD. Patient presented to [facility] emergency department on 11/18/2022 with increasing dyspnea. Patient was just discharged from [facility] on 11/15/2022 for community-acquired pneumonia vs aspiration PNA. He suffers from dysphagia. He was discharged with Augmentin and doxycycline. His metoprolol was increased to 25 mg twice daily while in the hospital.In the emergency department patient was afebrile and hemodynamically stable with adequate oxygen saturations on room air. No leukocytosis. Acute kidney injury with creatinine of 1.45. BNP 245. Creatinine upon discharge was 1.10 with a GFR of 71.Chest x-ray obtained and demonstrates mild cardiomegaly with bilateral interstitial prominence greatest within the lung bases may be on the basis of CHF/edema. Superimposed atypical pneumonia is not excluded. Patient suffers from expressive aphasia and dysphagia following stroke. Information obtained from patient's . She states that she did not necessarily feel that he was ready to be discharged from [facility]. He continues to have increased dyspnea, especially with exertion. She is concerned that he is still aspirating. She states that he ambulates from his bedroom to the bathroom and becomes very dyspneic. Apparently they do not have extension tubing for the concentrator. He uses 6 L atnight. He has DARON but is unable to tolerate wearing any mask. Review of Systems See HPI for specific ROS. All other systems reviewed and negative. Physical Exam Vitals and Measurements T: 36.6 C (Oral) TMIN: 36.6 C (Oral) TMAX: 37.0 C (Oral) HR: 55 RR: 16 BP: 139/68 SpO2: 96% No qualifying data available. GEN: Appears chronically ill EYES: No conjunctival erythema, drainage. EOMI EARS: Hearing grossly intact. NOSE: No nasal discharge. THROAT: Oral cavity and pharynx pink and moist. CHEST: Normal S1 and S2. Rhythm is regular. Clear and diminished. ABD: Positive bowel sounds x 4 quads. Soft, nondistended, nontender. EXT: No significant deformity or joint abnormality. No edema. Peripheral pulses intact. Right-sidedweakness. NEURO: Expressive aphasia SKIN: Skin color normal PSYCH: The mental examination revealed the patient was alert and interactive. Lab Results 11/18 14:19 Glucose Level: 91 Sodium Level: 142 Potassium Level: 4.4 BUN: 18 Creatinine Lvl (s): 1.45 H 11/18 13:40 WBC: 10.8 Hgb: 12.6 L Hct: 37.6 L Platelet: 353 Neutrophil %: 70.0 Imaging Results and Diagnostics XR Chest 1 View Result Date: November 18, 2022 Verified By: TUNDE WHITMAN, LISSA Álvarez CLINICAL STATEMENT: IMPRESSION: Mild cardiomegaly with bilateral interstitial prominence greatest within thelung bases may be on the basis of CHF/edema. Superimposed atypical pneumoniais not excluded. I have personally reviewed the images of this examination and agree with the resident's findings and interpretation. EKG EC11/18/22: Sinus rhythm Prolonged SC interval Probable left atrial enlargement Inferior infarct, old Prolonged QT interval Electronic Signature: LILIBETH HUYNH MD 11/18/2022 13:56:48 Assessment/Plan 1. PNA (pneumonia) 2. Atrial fibrillation 3. DARON and COPD overlap syndrome Pneumonia had concerns for continued aspiration and increasing dyspnea. Patient has adequate oxygen saturations on room air. His lungs are clear and diminished. He was seen by speech therapy at [facility] with recommendations for soft foods. Atypicals were negative At [facility]. We will not continue doxycycline. Will continue Augmentin. Patient is being admitted for observation due to concerns for Aspiration. Likely will be able to discharge home tomorrow morning. Repeat two-view chest x-ray tomorrow morning. Atrial fibrillation rate controlled. He was discharged from [facility] with metoprolol being doubled however PCP change this back to his previous dose. Continue home dose of metoprolol. Continue home dose of amiodarone And apixaban. DARON and COPD. COPD not in exacerbation. 6 L of O2 via nasal cannula at at bedtime. Patient is unable to tolerate mask. LEANN baseline creatinine 1.1 with a GFR of 71. Currently Creatinine is 1.45 with a GFR of 49. Will hold HCTZ. Repeat BMP in the morning. X-ray showed concerns for possible Pulmonary edema. Patient has no crackles, JVD, edema. Respirations are unlabored. BNP was elevated to 255 however patient does have an LEANN. No evidence of fluid overload. Of note, towards the end of the visit patient's did disclose that he is scheduled for anechocardiogram on 11/29/2022 by his cath lab manager. DVT prophylaxis:Apixaban Labs, diagnostics, and progress notes reviewed as noted in HPI Code Status: Full code Plan of care discussed with patient. All questions answered. Patient verbalizes understanding is agreeable to plan of care. This dictation was performed using voice recognition software and may include grammatical and/or spelling errors. Problem List/Past Medical History Ongoing No qualifying data Historical No qualifying data Procedure/Surgical History No qualifying data available. Medications Home Medications (18) Active amiodarone 100 mg oral tablet amLODIPine 10 mg oral tablet amoxicillin-clavulanate 875 mg-125 mg oral tablet 1 tab(s), Oral, q12h atorvastatin 40 mg oral tablet baclofen 10 mg oral tablet busPIRone 10 mg oral tablet 10 mg = 1 tab(s), Oral, TID clopidogrel 75 mg oral tablet 75 mg = 1 tab(s), Oral, Daily doxycycline monohydrate 100 mg oral capsule 100 mg = 1 cap(s), BID Eliquis 5 mg oral tablet escitalopram 20 mg oral tablet ezetimibe 10 mg oral tablet ezetimibe 10 mg oral tablet famotidine 20 mg oral tablet 20 mg = 1 tab(s), Oral, qHS Lopressor 25mg--USE metoprolol tartrate 25 mg oral tablet 12.5 mg = 0.5 tab(s), BID losartan 25 mg oral tablet 25 mg = 1 tab(s), Oral, qDay Multivitamin 1 tab(s), Oral, Daily Potassium Chloride (Zpg-Ujpj-Hrb 10) 10 mEq oral tablet, extended release traZODone 100 mg oral tablet Allergies lisinopril (Lip swelling) azithromycin sulfa drug Social History Tobacco Nicotine Use: Former smoker, quit more than 30 days ago., 11/18/2022 Family History Diabetes: Mother. Heart disease: Mother. Stroke: Father. Code Status Code Status - Ordered -- 11/18/22 16:17:00 EDT, Full Code, Constant Order Digitally Signed by KYLIE BLUM on 11/18/2022 05:40 PM [place] [id number] Miscellaneous Notes* Telephone Encounter - Ford Jones RN - 11/18/2022 3:08 PM EDT Pt's stated pt is at the ER in [place]. He just got out of the [facility] on and she had to call the EMS was called. Pt's asked when is pt appt with Dr. Johansen. Informed herthat the appt is 12/24/2022. She stated that is to long and requesting appt for tomorrow. She statedpt is dealing with Afib and need to get appt tomorrow. Informed pt's that the cardiology appt line is closed until tomorrow. She asked how does someone get appointment. Informed her that she cancall the doctor office or appt center number in the morning. She requested to speak to the appt center. When introducting myself appt center agent pt's disconnect. I called back and got a VM. Left a message. documented [facility] Note ORIGINAL EXAMINATION: ONE XRAY VIEW OF THE CHEST 11/18/2022 2:11 pm COMPARISON: None. HISTORY: ORDERING SYSTEM PROVIDED HISTORY: Reason for Exam: SOB/cough/fever FINDINGS: Median sternotomy wires are noted. The cardiac contour is mildly enlarged. There is mild bilateral interstitial prominence greatest within the lung bases. No large pleural effusion or pneumothorax. The osseous structures appear intact. IMPRESSION: Mild cardiomegaly with bilateral interstitial prominence greatest within the lung bases may be on the basis of CHF/edema. Superimposed atypical pneumonia is not excluded. I have personally reviewed the images of this examination and agree with the resident's findings and interpretation. Interpreted by: Lissa Tate MD Preliminary Report By: Foreign Lewis Electronically signed By Lissa Tate MD Dictated Date: 11/18/2022 2:19:54 PM Prelim Date: 11/18/2022 2:21:16 PM Sign Date: 11/18/2022 2:43:00 PM Ordering Provider: LILIBETH HUYNH [facility]04-16-2023 Note ORIGINAL EXAMINATION: ONE XRAY VIEW OF THE CHEST 11/18/2022 2:11 pm COMPARISON: None. HISTORY: ORDERING SYSTEM PROVIDED HISTORY: Reason for Exam: SOB/cough/fever FINDINGS: Median sternotomy wires are noted. The cardiac contour is mildly enlarged. There is mild bilateral interstitial prominence greatest within the lung bases. No large pleural effusion or pneumothorax. The osseous structures appear intact. IMPRESSION: Mild cardiomegaly with bilateral interstitial prominence greatest within the lung bases may be on the basis of CHF/edema. Superimposed atypical pneumonia is not excluded. I have personally reviewed the images of this examination and agree with the resident's findings and interpretation. Interpreted by: Lissa Tate MD Preliminary Report By: Foreign Lewis Electronically signed By Lissa Tate MD Dictated Date: 11/18/2022 2:19:54 PM Prelim Date: 11/18/2022 2:21:16 PM Sign Date: 11/18/2022 2:43:00 PM Ordering Provider: [facility]IB[facility]HLake[facility]04-16-2023 Evaluation + Plan noteExtracted from: Title:History and Physical Author:KYLIE BLUM APRN-OPERATIONS LABEL CLERK Date:11/18/22 1. PNA (pneumonia) 2. Atrial fibrillation 3. DARON and COPD overlap syndrome Pneumonia had concerns for continued aspiration and increasing dyspnea. Patient has adequate oxygen saturations on room air. His lungs are clear and diminished. He was seen by speech therapy at [facility] with recommendations for soft foods. Atypicals were negative At [facility]. We will not continue doxycycline. Will continue Augmentin. Patient is being admitted for observation due to concerns for Aspiration. Likely will be able to discharge home tomorrow morning. Repeat two-view chest x-ray tomorrow morning. Atrial fibrillation rate controlled. He was discharged from [facility] with metoprolol being doubled however PCP change this back to his previous dose. Continue home dose of metoprolol. Continue home dose of amiodarone And apixaban. DARON and COPD. COPD not in exacerbation. 6 L of O2 via nasal cannula at at bedtime. Patient is unable to tolerate mask. LEANN baseline creatinine 1.1 with a GFR of 71. Currently Creatinine is 1.45 with a GFR of 49. Will hold HCTZ. Repeat BMP in the morning. X-ray showed concerns for possible Pulmonary edema. Patient has no crackles, JVD, edema. Respirations are unlabored. BNP was elevated to 255 however patient does have an LEANN. No evidence of fluid overload. Of note, towards the end of the visit patient's did disclose that he is scheduled for an echocardiogram on 11/29/2022 by his cath lab manager. DVT prophylaxis:Apixaban Labs, diagnostics, and progress notes reviewed as noted in HPI Code Status: Full code Plan of care discussed with patient. All questions answered. Patient verbalizes understanding is agreeable to plan of care. This dictation was performed using voice recognition software and may include grammatical and/or spelling errors. [facility] 04-15-2023 History of Present illness Narrative* Jaci Arroyo MD - 11/17/2022 11:00 AM EDT Transitional Care Management TCM Eligibility Documentation The following information was gathered during the initial Patient Outreach Encounter. Date of Outreach: 11/16/2022 Outreach Attempt 1: Contact Made Date of Discharge 11/15/2022 Some recent data might be hidden Provider Documentation Afshin Zee is a 67 year old male here today for a follow up from recent hospitalization. I have reviewed the patient's hospital course including discharge summary, discharge medications , and followup needs with the patient and any family members present at today's visit. HPI Pt was admitted to [facility] on 11/11/22 for SOB. He was discharged home 11/15/22 with dx of pneumonia and hypoxemia. He was treated with Doxycycline 100 mg 1 pill BID x 6 days and Augmentin 875 mg BID x 6 days. O2 sat was still low at home yesterday; he is doing better today. He has O2 for inght time use; did nto tolerate CPAP; has appt to be evaluated for Inspire. also questioning increased dose of trazodone to 100 mg; she received this in the mail; not sure when it was increased. He has been having increased irritability recently. She is hoping to get into outpt PT/OT SPeech at [facility]. Considering respite care at [facility] or [place] Below copied from [facility] Meditech: Chief Complaint: Shortness of Breath Informant: spouse/S.O. Limited: other (Aphasia due to stroke 6 years ago) Narrative Narrative: Patient presenting by EMS from home sick no other present providing history. History of stroke right-sided residual aphasia 6 years ago. He is taking Eliquis for history of atrial fibrillation with no missed doses. Patient wears oxygen at night 6 L since the stroke per her significant other along with having sleep apnea history. Does not wear oxygen during the day. States yesterday noted mild coughing and occasional gasping for air. She spoke with PCP, reports a monitor today more increasing symptoms. EMS arrival 86% on room air he was brought in on nonrebreather transition to nasal cannula 6L. There is been no recent vomiting or diarrhea. Patient at his baseline per significant other. Per nursing other does ambulate with a cane. Hospital Course: 67-year-old male with history of atrial fibrillation, expressive aphasia as a fact of a previous stroke, CVA, hypertension presented to [facility] 11/11/2022 with coughing and shortnessof breath. He wears 6 L of oxygen at night and not during the day but at home he is found to be 86%on room air and was brought to the emergency department. He was saturating 93% on 6 L of O2, white blood cell count was 19.4 and chest x-ray with infiltrate in left lung consistent with pneumonia. Hewas admitted and treated for community-acquired pneumonia with Rocephin and he was given doxycycline due to an allergy to azithromycin. He was cultured and started on nebs and breathing treatments. He slowly improved with antibiotics and cultures were negative. There was some concern that he may have aspirated and speech evaluated and had an updated diet recommendation. On day of discharge he didnot require any O2 with ambulation was 89% and was discharged home with with the following instructions: -Your metoprolol dose was increased to 25 mg for your heart rate and blood pressure, and new prescription will be sent to your preferred pharmacy on file -You will be discharged on Augmentin 875 mg twice daily and doxycycline 100 mg twice daily, you will take these for another 6 days starting tomorrow morning 11/16. -Continue home Symbicort and as needed albuterol -Due to concerns with intermittent difficulty with swallowing speech therapy has recommended that you eat foods that are easy to chew. You must take small bites, small strips, no straws. Must eat at a slow rate and remain sitting upright for 30 minutes after any oral intake. He will need close one-to-one supervision while eating and will be important that you continue to work with speech therapy upon discharge -Continue your bedtime oxygen -Please call your primary care provider's office upon discharge to schedule a hospital follow up within 1 week. -For any concerning signs or symptoms please call 911 or proceed to the nearest emergency department PHYSICAL EXAMINATION There were no vitals taken for this visit. GENERAL: well appearing, alert, in no acute distress HEART: Regular rate and rhythm. No murmur, rubs or gallops. LUNGS: clear to auscultation, no wheezing, rhonchi, or crackles ASSESSMENT/PLAN: 1. Bacterial pneumonia - ICD9: 482.9, ICD10: J15.9 (primary diagnosis) Continue antibiotics Stay on metoprolol 25 mg bid Increase trazodone to 100 mg hs 2. Right hemiplegia (HCC) - ICD9: 342.90, ICD10: G81.91 Outpt PT/OT/Speech 3. Essential hypertension - ICD9: 401.9, ICD10: I10 - good control 4. Bradycardia - ICD9: 427.89, ICD10: R00.1 Monitor at home 5. Anxiety - ICD9: 300.00, ICD10: F41.9 Continue current medications. 6. Chronic insomnia - ICD9: 780.52, ICD10: F51.04 Trazodone 100 mg 7. Shortness of breath - ICD9: 786.05, ICD10: R06.02 would like to see pulm at [facility], so that all his doctors are in [facility] - CONSULT TO PULM/CRITICAL CARE 8. COPD with exacerbation (HCC) - ICD9: 491.21, ICD10: J44.1 - CONSULT TO PULM/CRITICAL CARE I agree with respite care; will assist as needed Follow up prn Jaci Arroyo MD documented in this encounterProtestant Hospital04-14-2023 Miscellaneous Notes* Telephone Encounter - Kimo Adamson Ma - 11/16/2022 4:32 PM EDT Patient was left detailed message on confidential vm Kimo Adamson Ma * Telephone Encounter - Jaci Arroyo MD - 11/16/2022 4:28 PM EDT OK for verbal order for SW as requested Jaci Arroyo MD * Telephone Encounter - Loida Vazquez LPN - 11/16/2022 2:27 PM EDT Oliva from [facility] Home Health calling asking for verbal order for Social Work. Also senior living plan of care if patient does not go to group home, 1 visit weekly for 1 week, then 2 visits weekly for 2 weeks, then 1 visit weekly for 1 week. Please advise documented in this encounterProtestant Hospital04-14-2023 Miscellaneous Notes* Telephone Encounter - Monica Cruz Ma - 11/16/2022 4:29 PM EDT Med list, problems list and letter faxed. Monica Cruz Ma * Telephone Encounter - Jaci Arroyo MD - 11/16/2022 4:27 PM EDT Letter done; may fax along with med list, problem list Jaci Arroyo MD * Telephone Encounter - Loida Vazquez LPN - 11/16/2022 2:21 PM EDT Eva from [facility] Home Health Social Work calling family is asking to have orders faxed to [facility] in [place] fax number is [phone]. Wanting a Respite stay for the patient. Aware patient has appt with PCP Saturday11/17/2022. Please advise documented in this encounterProtestant Hospital04-14-2023 Miscellaneous Notes* Telephone Encounter - Monica Cruz Ma - 11/16/2022 11:18 AM EDT Detailed message left on Sabiha's identified and confidential VM. Monica Cruz Ma * Telephone Encounter - Jaci Arroyo MD - 11/16/2022 11:16 AM EDT OK for verbal order for HH nurse to assess pt today in his home Jaci Arroyo MD * Telephone Encounter - Milan Brunson RN - 11/16/2022 11:04 AM EDT [facility] asking for verbal order for HH to send RN to patient's home today. Reports she spoke with who tells her patient's POX is running in the 70's, states she doesn't think she is able to care for patient in the home as patient is fighting with her about eating and his care. Pleasephone with verbal lucía. [phone] documented in this encounterProtestant Hospital04-14-2023 History of Present illness Narrative* Alvin Nick LPN - 11/16/2022 10:31 AM EDT Pt , Eli, returns call to office. Eli notified of provider response. Eli states she is very concerned that pt was dc'd from hospital so soon with pneumonia. She states [facility] (see triage note from last evening) did come to home last evening but they only said he was borderline. Eli checked SpO2 while this nurse was on the phone. SpO2 93% and 98% at rest. Pt in the background did not sound to be in acute respiratory distress. Eli states pt only feels short of breath when active. Pt is using O2 in the evenings only @ 6lpm. Eli also states pt is afraid d/t eat for fear ofaspiration pneumonia. Eli continues to voice concerns about how she does not feel comfortable with pt being home. Advised Eli to have pt use incentive spirometer (if pt was dc'd home with one). Also encourage big deep breaths. Pt is scheduled for tomorrow for hospital follow up (nothing available today). Please advise. Alvin Nick LPN * Kassandra Tai LPN - 11/16/2022 10:05 AM EDT TC to pt. Left a detailed message on a secure line with updates. Kassandra Tai LPN * Jaci Arroyo MD - 11/16/2022 9:56 AM EDT I would suggest staying with the 0.5 tablet twice daily of the metoprolol. Jaci Arroyo MD * Jayde Laughlin RN - 11/16/2022 9:32 AM EDT TRANSITION CARE MANAGEMENT (TCM) INITIAL CONTACT Clinical Nurse Educator Outreach Provider Action/FYI: is worried about metoprolol tartrate was increased to 1 tablet from .5 mg tablet. is worried since Dr. Arroyo only wanted patient to take .5 tablet that this is too much. states that she is only going to give patient .5 tablet. Patient just got up this morning, blood pressure pulse is 137/74 and 73. O2 currently 94 of taking having patient taking a deep breath. When O2 was first done it was 89. Currently on Room Air with O2 at night. Please advise on what dosage of medication provider wants patient to take. is only giving patient a .5 tablet this morning. Initial contact with patient post discharge, spoke to spouse. Patient identified by name and . TRANSITION CARE MANAGEMENT INITIAL OUTREACH DOCUMENTATION: Date of Outreach: 11/16/2022 Outreach Attempt 1: Contact Made Date of Discharge 11/15/2022 Some recent data might be hidden SUMMARY: -Pt discharged from [facility] on 11/16/2022. -Admitted for: Pneumonia Do you have a hospital follow up appointment with your PCP? Appointment on Dr. Arroyo with 11/17/2022. Yes. Remind patient of appointment date, time, and location. If not within 14 calendar days of discharge - please reschedule accordingly. MEDICATIONS: Many patients have questions or concerns about their medications once they are home. Were you prescribed any new medications? Yes Increased Metoprolol 25 mg from half tablet to full tablet twice a day. Amoxicillin Twice a day x 6 days Doxycycline Nodaway 100 mg x 6 days Were you told to hold any medications? No Were any of your medications discontinued? No Do you have any questions about getting or taking your medications? No Your discharge instructions/After visit Summary (AVS) are important in guiding you through the recovery process. Is there anything I might help you understand? No Do you have all the necessary equipment and supplies at home? Yes Medical records from recent hospitalization: Care Everywhere * Monica Cruz Ma - 11/16/2022 9:21 AM EDT TRANSITION CARE MANAGEMENT (TCM) INITIAL CONTACT Clinical Nurse Educator Outreach Provider Action/FYI: 7 Day TCM 11/16/22-Message left for Eli to call back. Metoprolol changed to 25 mg BID Initial contact with patient post discharge, 11/16/22, message left for Eli to call back. Patient identified by name and . TRANSITION CARE MANAGEMENT INITIAL OUTREACH DOCUMENTATION: Date of Outreach: 11/16/2022 Outreach Attempt 1: Contact Made Date of Discharge 11/15/2022 Some recent data might be hidden SUMMARY: -Pt discharged from [facility] on 11/15/22. -Admitted for: Pneumonia Hypoxemia Do you have a hospital follow up appointment with your PCP? Appointment on 11/22/22 with Cruz. Yes. Remind patient of appointment date, time, and location. If not within 14 calendar days of discharge - please reschedule accordingly. MEDICATIONS: Many patients have questions or concerns about their medications once they are home. Were you prescribed any new medications? If yes, what are those medications? Doxycycline 100 mg BID x 6 days #13 pills Amoxicillin-pot clavulanate 875-125 mg BID x 6 days #12 pills Were you told to hold any medications? No Were any of your medications discontinued? No Do you have any questions about getting or taking your medications? No Your discharge instructions/After visit Summary (AVS) are important in guiding you through the recovery process. Is there anything I might help you understand? No Do you have all the necessary equipment and supplies at home? Yes Medical records from recent hospitalization: [facility] for provider to review [facility] Bruns [facility] November 15, 2022 5:13pm Note Date/Time November 15, 2022 3:1 7pm [facility] Medical Records Department [address] [place] [address] Discharge Summary 11/15/22 1516 MR#: [id number] Acct: [id number] Name: AFSHIN ZEE Rep #:[id number] : 1955 67 From: Felecia Burns MD PCP: Dr. Jaci Arroyo MD Status:AD M IN [id number] Providers Date of Admission: 11/11/22 Date of Discharge: 11/15/22 Primary Care Physician: Dr. Jaci Arroyo MD Reason For Visit: PNEUMONIA Diagnosis Discharge Diagnosis (1) Community acquired pneumonia: Status: Acute Code(s): J18.9 - Pneumonia, unspecified organism (2) Hypoxia: Status: Acute Code(s): R09.02 - Hypoxemia Plan #Hypoxia in the setting of chronic hypoxic respiratory failure due to community-acquired pneumonia #Dysphagia #History of CVA with residual expressive aphasia #History of A-fib #Hypertension #CAD s/p CABG #DARON: On 6 L of oxygen at night, has not tolerated CPAP in the past Medications at Discharge Home Medications famotidine 20 mg tablet 20 mg PO QHS PRN PRN Gastric Reflux 12/21/16 baclofen 10 mg tablet 5 mg PO TID 02/05/17 multivitamin,[id number] (Complete Multivitamin tablet) 1 tab PO DAILY vitamin 12/04/18 potassium chloride 10 mEq tablet,extended release 20 meq PO TID potassium #90 tabs 04/19/20 ezetimibe 10 mg tablet 10 mg PO DAILY 04/22/21 escitalopram oxalate 20 mg tablet 20 mg PO DAILY antidepressant 06/11/21 menthol 0.44 %-zinc oxide 20.6 % topical ointment (Calmoseptine) 1 applic topical TID PRN Diaper Rash #0 grams 06/17/21 amiodarone 100 mg tablet 100 mg PO DAILY HEART 07/11/21 lorazepam 0.5 mg tablet 0.5 mg PO BID anxiety #10 tabs 08/23/21 albuterol sulfate 90 mcg/actuation aerosol inhaler (Ventolin HFA) 2 inh inhalation Q4H PRN shortness of breath or wheezing #18 grams 05/29/22 fluticasone propionate 50 mcg/actuation nasal spray,suspension (Flonase Allergy Relief) 2 spray intranasal DAILY #16 grams 05/29/22 IV poll #1 ea 08/07/22 buspirone 10 mg tablet 10 mg PO TID ANXIETY 08/16/22 trazodone 50 mg tablet 50 mg PO QHS DEPRESSION 08/16/22 miconazole nitrate 2 % topical cream 1 applic topical BID 14 days #15 grams 08/17/22 budesonide-formoterol HFA 160 mcg-4.5 mcg/actuation aerosol inhaler (Symbicort) 2 puff inhalation BID #3 ea 08/22/22 acetaminophen 500 mg tablet 1,000 mg PO Q6H PRN Pain 11/11/22 amlodipine 5 mg tablet 5 mg PO DAILY 11/11/22 apixaban 5 mg tablet (Eliquis) 5 mg PO BID 11/11/22 clopidogrel 75 mg tablet (Plavix) 75 mg PO DAILY anti platelet 11/11/22 hydrochlorothiazide 12.5 mg tablet 12.5 mg PO DAILY diuretic 11/11/22 amoxicillin 875 mg-potassium clavulanate 125 mg tablet 1 tab PO BID 6 days #12 tabs 11/15/22 doxycycline monohydrate 100 mg capsule 100 mg PO BID 6 days #13 caps 11/15/22 metoprolol tartrate 25 mg tablet 25 mg PO BID 30 days #30 tabs 11/15/22 Hospital Course Summary of Care Provided Minutes Spent on Discharge: 35 Hospital Course: 67-year-old male with history of atrial fibrillation, expressive aphasia as a fact of a previous stroke, CVA, hypertension presented to [facility] 11/11/2022 with coughing and shortness of breath. He wears 6 L of oxygenat night and not during the day but at home he is found to be 86% on room air and was brought to the emergency department. He was saturating 93% on 6 L of O2, white blood cell count was 19.4 and chest x-ray with infiltrate in left lungconsistent with pneumonia. He was admitted and treated for community-acquired pneumonia with Rocephin and he was given doxycycline due to an allergy to azithromycin. He was cultured and started on nebs and breathing treatments. Heslowly improved with antibiotics and cultures were negative. There was some concern that he may have aspirated and speech evaluated and had an updated diet recommendation. On day of discharge he did not require any O2 with ambulation was 89% and was discharged home with with the following instructions: -Your metoprolol dose was increased to 25 mg for your heart rate and blood pressure, and new prescription will be sent to your preferred pharmacy on file -You will be discharged on Augmentin 875 mg twice daily and doxycycline 100 mg twice daily, you will take these for another 6 days starting tomorrow morning 11/16. -Continue home Symbicort and as needed albuterol -Due to concerns with intermittent difficulty with swallowing speech therapy hasrecommended that you eat foods that are easy to chew.? You must take small bites, small strips, no straws.? Must eat at a slow rate and remain sitting upright for 30 minutes after any oral intake.? He will need close one-to-one supervision while eating and will be important that you continue to work with speech therapy upon discharge -Continue your bedtime oxygen -Please call your primary care provider's office upon discharge to schedule a hospital follow up within 1 week. -For any concerning signs or symptoms please call 911 or proceed to the nearest emergency department Physical Exam Narrative General: Alert, no apparent distress HEENT: Atraumatic, normocephalic Eyes: Anicteric, normal conjunctiva, extraocular movements grossly intact Neck: Supple Respiratory: normal respiratory effort Cardiovascular: Regular rate and rhythm GI: Soft, nontender, nondistended Extremities: No edema Musculoskeletal: Moving all extremities, does have a chronic foot drop Neuro: Expressive aphasia Skin: No rashes appreciated Psych: Somewhat irritable but overall cooperative Weight / BMI Weight Weight: 88.7 kg Body Mass Index (BMI) 28.0 ABG / Lab / Microbiology Data Result Diagrams: 11/15/22 04:56 11/15/22 04:56 Laboratory: Laboratory Results - last 24 hr 11/14/22 15:15: Procalcitonin 0.88 H 11/15/22 04:56: WBC 8.4, RBC 4.00 L, Hgb 11.7 L, Hct 36.7 L, MCV 91.8, MCH 29.3,MCHC 31.9 L, RDW Std Deviation 45.8 H, RDW Coeff of Makayla 13.4, Plt Count 304, MPV10.3, Immature Gran % (Auto) 1.800 H, Neut % (Auto) 60.7, Lymph % (Auto) 16.1 L,Nodaway % (Auto) 12.1 H, Eos % (Auto) 8.3 H, Baso % (Auto) 1.0, Absolute Neuts (auto) 5.1, Absolute Lymphs (auto) 1.35, Nucleated RBC % 0 11/15/22 04:56: Sodium 138, Potassium 3.3 L, Chloride 106, Carbon Dioxide 29.0, Anion Gap 3 L, BUN 14, Creatinine 1.10, Estim Creat Clear Calc 67.29, Est GFR (MDRD) Af Amer 86, Est GFR (MDRD) Non-Af 71, BUN/Creatinine Ratio 12.7, Glucose 88, Calcium 9.0 Microbiology: Microbiology 11/13/22 18:48 Sputum, Expectorated/Coughed Gram Stain - Final 11/13/22 18:48 Sputum, Expectorated/Coughed Respiratory Culture - Final Mixed normal respiratory wade. No Streptococcus pneumoniae, beta-hemolytic Streptococcus or Staphylococcus aureus isolated. 11/13/22 16:10 Urine, Clean Catch Legionella Antigen - Final 11/13/22 16:10 Urine, Clean Catch Streptococcus pneumoniae Antigen (M - Final 11/13/22 11:12 Mucosa - Nasopharyngeal Respiratory Panel (PCR) - Final 11/11/22 14:00 Blood Culture (Wb) - Right Hand Blood Culture - Preliminary No growth in 48 hours. 11/11/22 13:40 Blood Culture (Wb) - Anticubital Left Blood Culture - Preliminary No growth in 48 hours. 11/11/22 13:40 Nasal Secretion SARS-CoV-2 & FLU Antigen (Rapid) - Final D/C Instructions Discharge Diet: - ( speech therapy has recommended that you eat foods that are easy to chew. You must take small bites, small strips, no straws. Must eat at a slow rate and remain sitting upright for 30 minutes after any oral intake. Hewill need close one-to-one supervision while eating) Meaningful Use Info Meaningful Use Diagnoses (Choose all that apply): None applicable Discharge Plan Admission Admit Date/Time: 11/11/22 14:39 Primary Reason for Your Visit: Shortness of breath Attending Provider: Felecia Burns Primary Care Provider: Jaci Arroyo Consulting Providers: Arti Escalante Instructions Patient Instructions: Dysphagia Diet- Managing Drinks, Dysphagia Larynx LiftingExercises, Dysphagia Diet- Managing Foods Additional Instructions / Restrictions: DISCHARGE INSTRUCTIONS PLEASE READ *Please take this with you to your next doctors appointment* -Your metoprolol dose was increased to 25 mg for your heart rate and blood pressure, and new prescription will be sent to your preferred pharmacy on file -You will be discharged on Augmentin 875 mg twice daily and doxycycline 100 mg twice daily, you will take these for another 6 days starting tomorrow morning 11/16. -Continue home Symbicort and as needed albuterol -Due to concerns with intermittent difficulty with swallowing speech therapy hasrecommended that you eat foods that are easy to chew. You must take small bites, small strips, no straws. Must eat at a slow rate and remain sitting upright for 30 minutes after any oral intake. He will need close one-to-one supervision while eating and will be important that you continue to work with speech therapy upon discharge -Continue your bedtime oxygen -Please call your primary care provider's office upon discharge to schedule a hospital follow up within 1 week. -For any concerning signs or symptoms please call 911 or proceed to the nearest emergency department Discharge Orders/Prescriptions Prescriptions: New doxycycline monohydrate 100 mg Capsule 100 mg PO BID 6 Days Qty: 13 0RF amoxicillin-pot clavulanate 875-125 mg tablet 1 tab PO BID 6 Days Qty: 12 0RF Continued Complete Multivitamin tablet 1 tab PO DAILY potassium chloride 10 mEq tablet extended release 20 meq PO TID Qty: 90 12RF albuterol sulfate [Ventolin HFA] 90 mcg/actuation HFA aerosol inhaler 2 inh inhalation Q4H PRN (Reason: shortness of breath or wheezing) Qty: 18 6RF fluticasone propionate [Flonase Allergy Relief] 50 mcg/actuation spray,suspension 2 spray INTRANASAL DAILY Qty: 16 6RF budesonide-formoterol [Symbicort] 160-4.5 mcg/actuation HFA aerosol inhaler 2 puff inhalation BID Qty: 3 3RF Rx Instructions: administer with spacer, rinse mouth after each use famotidine 20 MG tablet 20 mg PO QHS PRN PRN (Reason: Gastric Reflux) Label Comments: reduce acid baclofen 10 MG tablet 5 mg PO TID 0RF Label Comments: muscle relaxant ezetimibe 10 mg tablet 10 mg PO DAILY Label Comments: TAKE 1 TABLET BY MOUTH ONCE DAILY escitalopram oxalate 20 mg Tablet 20 mg PO DAILY menthol-zinc oxide [Calmoseptine] 0.44-20.6 % Ointment 1 applic topical TID PRN (Reason: Diaper Rash) Qty: 0 0RF Protocol: *Topical Application Instructions APPLICATION INSTRUCTIONS: scrotum/luci-rectal area prn amiodarone 100 mg tablet 100 mg PO DAILY Label Comments: TAKE 1 TABLET BY MOUTH ONCE DAILY. DO NOT TAKE IF HEART RATE IS LESS THAN 40. lorazepam 0.5 MG tablet 0.5 mg PO BID Qty: 10 0RF trazodone 50 mg tablet 50 mg PO QHS Label Comments: take 1 tablet by mouth at bedtime buspirone 10 mg tablet 10 mg PO TID Label Comments: TAKE 1 TABLET BY MOUTH THREE TIMES DAILY miconazole nitrate 2 % Cream 1 applic topical BID 14 Days Qty: 15 0RF Protocol: *Topical Application Instructions APPLICATION INSTRUCTIONS: Apply to erythema on glans of penis BID amlodipine 5 mg Tablet 5 mg PO DAILY acetaminophen 500 mg Tablet 1,000 mg PO Q6H PRN (Reason: Pain) Eliquis 5 mg tablet 5 mg PO BID Label Comments: TAKE ONE (1) TABLET BY MOUTH TWICE DAILY clopidogrel [Plavix] 75 mg tablet 75 mg PO DAILY hydrochlorothiazide 12.5 mg tablet 12.5 mg PO DAILY Changed metoprolol tartrate 25 mg tablet 25 mg PO BID 30 Days Qty: 30 6RF Rx Instructions: hold if heart rate is less than 60 No Action (DME) IV poll See Rx Instructions .Route .MEDSUPPLY Qty: 1 0RF Rx Instructions: As directed Referrals / Follow Up: Jaci Arroyo MD [Primary Care Provider] - 11/22/22 2:20 pm Disposition Disposition (needs filled in before D/C Order can be placed): Home Health Service Charges/Coding Visit Charges Inpatient E&M: 98695 Disch Hosp >30min 11/15/22 1544 <Electronically signed by Felecia Burns MD> Cosigner Signature (if applicable): CC: Dr. Jaci Arroyo MD; Dr. Felecia Burns MD~ Signed [facility] Work Phone: [phone]) 417-538904-13-[address] Burns [facility] November 15, 2022 3:16pm Note Date/Time November 15, 2022 2:3 5pm [facility] Medical Records Department [address] [place] [address] Instructions for Home/Discharge Instructions 11/15/22 1433 MR#: [id number] Acct: [id number] Name: AFSHIN ZEE Rep #:[id number] : 1955 67 From: Felecia Burns MD PCP: Dr. Jaci Arroyo MD Status:AD M IN Discharge Instructions Diet Discharge Diet: - ( speech therapy has recommended that you eat foods that are easy to chew. You must take small bites, small strips, no straws. Must eat at a slow rate and remain sitting upright for 30 minutes after any oral intake. Hewill need close one-to-one supervision while eating) Activity Discharge Activity: Return to Normal Activity Follow Up Care Test Results: Test results from this visit will be discussed in further detail at your follow- up appointment, if applicable. Discharge Plan Admission Admit Date/Time: 11/11/22 14:39 Primary Reason for Your Visit: Shortness of breath Attending Provider: Felecia Burns Primary Care Provider: Jaci Arroyo Consulting Providers: Arti Escalante Instructions Patient Instructions: Dysphagia Diet- Managing Drinks, Dysphagia Larynx LiftingExercises, Dysphagia Diet- Managing Foods Additional Instructions / Restrictions: DISCHARGE INSTRUCTIONS PLEASE READ *Please take this with you to your next doctors appointment* -Your metoprolol dose was increased to 25 mg for your heart rate and blood pressure, and new prescription will be sent to your preferred pharmacy on file -You will be discharged on Augmentin 875 mg twice daily and doxycycline 100 mg twice daily, you will take these for another 6 days starting tomorrow morning 11/16. -Continue home Symbicort and as needed albuterol -Due to concerns with intermittent difficulty with swallowing speech therapy hasrecommended that you eat foods that are easy to chew. You must take small bites, small strips, no straws. Must eat at a slow rate and remain sitting upright for 30 minutes after any oral intake. He will need close one-to-one supervision while eating and will be important that you continue to work with speech therapy upon discharge -Continue your bedtime oxygen -Please call your primary care provider's office upon discharge to schedule a hospital follow up within 1 week. -For any concerning signs or symptoms please call 911 or proceed to the nearest emergency department Discharge Orders/Prescriptions Prescriptions: New doxycycline monohydrate 100 mg Capsule 100 mg PO BID 6 Days Qty: 13 0RF amoxicillin-pot clavulanate 875-125 mg tablet 1 tab PO BID 6 Days Qty: 12 0RF Continued Complete Multivitamin tablet 1 tab PO DAILY potassium chloride 10 mEq tablet extended release 20 meq PO TID Qty: 90 12RF albuterol sulfate [Ventolin HFA] 90 mcg/actuation HFA aerosol inhaler 2 inh inhalation Q4H PRN (Reason: shortness of breath or wheezing) Qty: 18 6RF fluticasone propionate [Flonase Allergy Relief] 50 mcg/actuation spray,suspension 2 spray INTRANASAL DAILY Qty: 16 6RF budesonide-formoterol [Symbicort] 160-4.5 mcg/actuation HFA aerosol inhaler 2 puff inhalation BID Qty: 3 3RF Rx Instructions: administer with spacer, rinse mouth after each use famotidine 20 MG tablet 20 mg PO QHS PRN PRN (Reason: Gastric Reflux) Label Comments: reduce acid baclofen 10 MG tablet 5 mg PO TID 0RF Label Comments: muscle relaxant ezetimibe 10 mg tablet 10 mg PO DAILY Label Comments: TAKE 1 TABLET BY MOUTH ONCE DAILY escitalopram oxalate 20 mg Tablet 20 mg PO DAILY menthol-zinc oxide [Calmoseptine] 0.44-20.6 % Ointment 1 applic topical TID PRN (Reason: Diaper Rash) Qty: 0 0RF Protocol: *Topical Application Instructions APPLICATION INSTRUCTIONS: scrotum/luci-rectal area prn amiodarone 100 mg tablet 100 mg PO DAILY Label Comments: TAKE 1 TABLET BY MOUTH ONCE DAILY. DO NOT TAKE IF HEART RATE IS LESS THAN 40. lorazepam 0.5 MG tablet 0.5 mg PO BID Qty: 10 0RF trazodone 50 mg tablet 50 mg PO QHS Label Comments: take 1 tablet by mouth at bedtime buspirone 10 mg tablet 10 mg PO TID Label Comments: TAKE 1 TABLET BY MOUTH THREE TIMES DAILY miconazole nitrate 2 % Cream 1 applic topical BID 14 Days Qty: 15 0RF Protocol: *Topical Application Instructions APPLICATION INSTRUCTIONS: Apply to erythema on glans of penis BID amlodipine 5 mg Tablet 5 mg PO DAILY acetaminophen 500 mg Tablet 1,000 mg PO Q6H PRN (Reason: Pain) Eliquis 5 mg tablet 5 mg PO BID Label Comments: TAKE ONE (1) TABLET BY MOUTH TWICE DAILY clopidogrel [Plavix] 75 mg tablet 75 mg PO DAILY hydrochlorothiazide 12.5 mg tablet 12.5 mg PO DAILY Changed metoprolol tartrate 25 mg tablet 25 mg PO BID 30 Days Qty: 30 6RF Rx Instructions: hold if heart rate is less than 60 No Action (DME) IV poll See Rx Instructions .Route .MEDSUPPLY Qty: 1 0RF Rx Instructions: As directed Referrals / Follow Up: Jaci Arroyo MD [Primary Care Provider] - 11/22/22 2:20 pm Disposition Disposition (needs filled in before D/C Order can be placed): Home Health Service 11/15/22 1516<Electronically signed by Felecia Burns MD>Felecia Burns MD CC: Dr. Jaci Arroyo MD; Dr. Arti Escalante MD ~ Signed [facility] Work Phone: 1(141) 267-577604-12-[address] Burns [facility] November 14, 2022 1:47pm Note Date/Time November 14, 2022 12: 20pm [facility] Medical Records Department [address] [place] [id number] Progress Note - Hospitalist 11/14/22 1220 MR#: [id number] Acct: [id number] Name: AFSHIN ZEE Rep #:[id number] : 1955 67 From: Felecia Burns MD PCP: Dr. Jaci Arroyo MD Status:AD M IN Location: [place] [address]- 1 Reason for Visit Reason for Visit: Diagnoses Pneumonia, unspecified organism (11/11/22) Hypoxemia (11/11/22) Subjective Subjective Patient seen and evaluated at bedside with . She reports concerns that he had had some coughing with food earlier. He has been working with speech therapy. Respiratory status very slowly improving. Patient upset when informedhe was staying another day Objective Data Objective Data Vital Signs: Vital Signs Temp Pulse Resp BP Pulse Ox O2 Del Method O2 Flow Rate 97.7 F L 87 20 H 141/78 H 94 Nasal Cannula 4 11/14/22 09:35 11/14/22 11:30 11/14/22 11:21 11/14/22 11:30 11/14/22 09:35 11/14/22 09:35 11/14/22 09:35 Oxygen Flow Rate (L/min) 4 Oxygen Delivery Method Nasal Cannula Weight: 88.7 kg Body Mass Index (BMI) 28.0 Intake & Output: Intake and Output for Last 24 Hours 11/12/22 11/13/22 11/14/22 23:59 23:59 23:59 Intake Total 3340 / 3340 1070 / 1070 200 / 200 Output Total 1600 / 2400 2850 / 3100 1050 / 1050 Balance 1740 / 940 -1780 / -2030 -850 / -850 Lab / Micro Data Result Diagrams: 11/14/22 05:04 11/14/22 05:04 Labs: Laboratory Results - last 24 hr 11/14/22 05:04: WBC 8.8, RBC 4.07 L, Hgb 12.1 L, Hct 37.4 L, MCV 91.9, MCH 29.7,MCHC 32.4, RDW Std Deviation 46.0 H, RDW Coeff of Makayla 13.7, Plt Count 311, MPV 11.0, Immature Gran % (Auto) 1.000 H, Neut % (Auto) 65.9, Lymph % (Auto) 13.7 L,Nodaway % (Auto) 10.1 H, Eos % (Auto) 8.4 H, Baso % (Auto) 0.9, Absolute Neuts (auto) 5.8, Absolute Lymphs (auto) 1.21, Nucleated RBC % 0 11/14/22 05:04: Sodium 137, Potassium 3.2 L, Chloride 104, Carbon Dioxide 27.0, Anion Gap 6, BUN 15, Creatinine 1.06, Estim Creat Clear Calc 69.82, Est GFR (MDRD) Af Amer 90, Est GFR (MDRD) Non-Af 74, BUN/Creatinine Ratio 14.2, Glucose 88, Calcium 9.1 Micro: Microbiology 11/13/22 18:48 Sputum, Expectorated/Coughed Respiratory Culture - Preliminary Appears to be normal respiratory wade. Further studies to follow. 11/13/22 16:10 Urine, Clean Catch Legionella Antigen - Final 11/13/22 16:10 Urine, Clean Catch Streptococcus pneumoniae Antigen (M - Final 11/13/22 11:12 Mucosa - Nasopharyngeal Respiratory Panel (PCR) - Final 11/11/22 14:00 Blood Culture (Wb) - Right Hand Blood Culture - Preliminary No growth in 48 hours. 11/11/22 13:40 Blood Culture (Wb) - Anticubital Left Blood Culture - Preliminary No growth in 48 hours. 11/11/22 13:40 Nasal Secretion SARS-CoV-2 & FLU Antigen (Rapid) - Final Physical Exam Narrative General: Alert, oriented, no apparent distress HEENT: Atraumatic, normocephalic Eyes: Anicteric, normal conjunctiva, extraocular movements grossly intact Neck: Supple Respiratory: normal respiratory effort Cardiovascular: Regular rate and rhythm GI: Soft, nontender, nondistended Extremities: No edema Musculoskeletal: Moving all extremities, does have a chronic foot drop Neuro: Aphasia Skin: No rashes appreciated Psych: Cooperative Assessment & Plan Assessment/Plan (1) Community acquired pneumonia: (2) Hypoxia: PLAN: Plan #Hypoxia in the setting of chronic hypoxic respiratory failure due to community-acquired pneumonia -Usually only wears 6 L of oxygen at night. Now requiring 6 L of oxygen during the day. -WBC elevated at 19.4 and chest x-ray shows evidence of left lower lobe pneumonia. -Started on IV ceftriaxone and doxycycline as he is allergic to azithromycin. -Check sputum culture. Urine for strep and Legionella. -COVID and flu test are negative. -Titrate oxygen to maintain saturation above 90%. -Breathing treatments with bronchodilators. -get speech therapy to evaluate patient -11/12: WBC count down to 12.5 today, blood cultures pending, sputum culture yet to be collected. Still has high O2 requirement, will monitor closely. No wheezings do not feel we need systemic steroids but low threshold to start givenhistory -11/13: White blood cell count improving but still requiring 6 L, sputum culture ordered but not yet collected. COVID and flu negative but given slow to turnaround despite antibiotics will add respiratory panel for further evaluation. Continue nebs. Not wheezing so have not yet started steroids. No history of heart failure, do not suspect fluid overload. Will consider repeat chest x-ray if respiratory panel negative -11/14: Blood cell count has normalized and slowly has decreased O2 requirements though still requiring the O2 during the day which he does not require at home. Pro-Homero was elevated on admission, will repeat to assess medication efficacy. After discussing with and concerns with coughing with food there may be an aspect of aspiration however improving with current antibiotics we will continueRocephin #Dysphagia -Working with speech therapy -Had an episode of coughing while trying to hamburger last night but there is nodirect supervision as staff unaware that he got his food tray - very anxious about this today, speech therapy note reviewed -Continue dysphagia precautions and modified diet. If any further episodes may need video swallow eval #History of CVA with residual expressive aphasia: On Plavix and statin #History of A-fib: On amiodarone and Eliquis and metoprolol #Hypertension: On hydrochlorothiazide and amlodipine. IV hydralazine as needed #CAD s/p CABG: On Plavix and statin #DARON: On 6 L of oxygen at night, has not tolerated CPAP in the past DVT prophylaxis: Already on Eliquis Total time spent on evaluation and management of patient, reviewing chart and specialist notes, discussing plan with patient and his , discussion with nursing and ancillary staff as well as documentation: 30 mins Charges/Coding Visit Charges Inpatient E&M: 24758 Subs Hosp L2 11/14/22 1347 <Electronically signed by Felecia Burns MD> Cosigner Signature (if applicable): CC: ~ Signed [facility] Work Phone: 1(885) 122-229004-12-2023 Miscellaneous Notes* Telephone Encounter - Amaya Kessler RN - 11/14/2022 9:08 AM EDT Patient's Eli calling to inform Dr. Arroyo that patient has been admitted to [facility] on 11/11 with pneumonia. states she will be making PCP F/U appt when pt is discharged from [facility]. No call back needed. Amaya Kessler RN documented in this encounterProtest[facility] Hospital04-11-[address] Burns [facility] November 13, 2022 10:19am Note Date/Time November 13, 2022 10: 10am [facility] Medical Records Department [address] [place] [address] Progress Note - Hospitalist 11/13/22 1009 MR#: [id number] Acct: [id number] Name: AFSHIN ZEE Rep #:[id number] : 1955 67 From: Felecia Burns MD PCP: Dr. Jaci Arroyo MD Status:AD M IN Location: [place] [address] Reason for Visit Reason for Visit: Diagnoses Pneumonia, unspecified organism (11/11/22) Hypoxemia (11/11/22) Subjective Subjective Resting comfortably in bed, not at bedside. Patient shook his head yes when asked about coughing but has difficulty communicating any other symptoms Objective Data Objective Data Vital Signs: Vital Signs Temp Pulse Resp BP Pulse Ox O2 Del Method O2 Flow Rate 97.8 F 79 12 125/78 H 91 Nasal Cannula 6 11/13/22 03:43 11/13/22 07:23 11/13/22 07:23 11/13/22 03:43 11/13/22 07:23 11/13/22 07:23 11/13/22 07:23 Oxygen Flow Rate (L/min) 6 Oxygen Delivery Method Nasal Cannula Weight: 88.7 kg Body Mass Index (BMI) 28.0 Intake & Output: Intake and Output for Last 24 Hours 11/11/22 11/12/22 11/13/22 23:59 23:59 23:59 Intake Total 810 / 1060 3340 / 3340 Output Total 1600 / 2400 2500 / 2500 Balance 810 / 260 1740 / 940 -2500 / -2500 Lab / Micro Data Result Diagrams: 11/13/22 05:31 11/13/22 05:31 Labs: Laboratory Results - last 24 hr 11/13/22 05:31: WBC 9.3, RBC 3.84 L, Hgb 11.5 L, Hct 35.1 L, MCV 91.4, MCH 29.9,MCHC 32.8, RDW Std Deviation 45.8 H, RDW Coeff of Makayla 13.8, Plt Count 272, MPV 11.1, Immature Gran % (Auto) 0.900, Neut % (Auto) 70.5 H, Lymph % (Auto) 13.1 L,[place] % (Auto) 9.8, Eos % (Auto) 5.1 H, Baso % (Auto) 0.6, Absolute Neuts (auto) 6.6, Absolute Lymphs (auto) 1.22, Nucleated RBC % 0 11/13/22 05:31: Sodium 139, Potassium 3.2 L, Chloride 108 H, Carbon Dioxide 27.0, Anion Gap 4 L, BUN 12, Creatinine 1.05, Estim Creat Clear Calc 70.49, Est GFR (MDRD) Af Amer 91, Est GFR (MDRD) Non-Af 75, BUN/Creatinine Ratio 11.4, Glucose 86, Calcium 8.7 Micro: Microbiology 11/11/22 14:00 Blood Culture (Wb) - Right Hand Blood Culture - Preliminary No growth in 48 hours. 11/11/22 13:40 Blood Culture (Wb) - Anticubital Left Blood Culture - Preliminary No growth in 48 hours. 11/11/22 13:40 Nasal Secretion SARS-CoV-2 & FLU Antigen (Rapid) - Final Physical Exam Narrative General: Alert, oriented, no apparent distress HEENT: Atraumatic, normocephalic Eyes: Anicteric, normal conjunctiva, extraocular movements grossly intact Neck: Supple Respiratory: Slightly coarse at bases, normal respiratory effort Cardiovascular: Regular rate and rhythm GI: Soft, nontender, nondistended Extremities: No edema Musculoskeletal: Moving all extremities, does have a chronic foot drop Neuro: Aphasia Skin: No rashes appreciated Psych: Cooperative Assessment & Plan Assessment/Plan (1) Community acquired pneumonia: (2) Hypoxia: PLAN: Plan #Hypoxia in the setting of chronic hypoxic respiratory failure due to community-acquired pneumonia -Usually only wears 6 L of oxygen at night. Now requiring 6 L of oxygen during the day. -WBC elevated at 19.4 and chest x-ray shows evidence of left lower lobe pneumonia. -Started on IV ceftriaxone and doxycycline as he is allergic to azithromycin. -Check sputum culture. Urine for strep and Legionella. -COVID and flu test are negative. -Titrate oxygen to maintain saturation above 90%. -Breathing treatments with bronchodilators. -get speech therapy to evaluate patient -11/12: WBC count down to 12.5 today, blood cultures pending, sputum culture yet to be collected. Still has high O2 requirement, will monitor closely. No wheezings do not feel we need systemic steroids but low threshold to start givenhistory -11/13: White blood cell count improving but still requiring 6 L, sputum culture ordered but not yet collected. COVID and flu negative but given slow to turnaround despite antibiotics will add respiratory panel for further evaluation. Continue nebs. Not wheezing so have not yet started steroids. No history of heart failure, do not suspect fluid overload. Will consider repeat chest x-ray if respiratory panel negative #History of CVA with residual expressive aphasia: On Plavix and statin #History of A-fib: On amiodarone and Eliquis and metoprolol #Hypertension: On hydrochlorothiazide and amlodipine. IV hydralazine as needed #CAD s/p CABG: On Plavix and statin #DARON: On 6 L of oxygen at night, has not tolerated CPAP in the past DVT prophylaxis: Already on Eliquis Total time spent on evaluation and management of patient, reviewing chart and specialist notes, discussing plan with patient and his , discussion with nursing and ancillary staff as well as documentation: 30 mins Charges/Coding Visit Charges Inpatient E&M: 57455 Subs Hosp L2 11/13/22 1019 <Electronically signed by Felecia Burns MD> Cosigner Signature (if applicable): CC: ~ Signed [facility] Work Phone: [phone]) 200-835404-11-2023 Miscellaneous Notes* Telephone Encounter - Jayde Laughlin RN - 11/13/2022 10:15 AM EDT Patient currently at [facility] with pneumonia. * Telephone Encounter - Khris Gutierrez RN - 11/08/2022 4:08 PM EDT Kylei [facility] HH nurse called in and reports that Pts had called her with: 11/07/2022- 122/59 47 11/08/2022 124/64 55 Metoprolol had been stopped for a week. She states that the Pt HR has been running in the high 40s for them. She states the Pt denies dizziness and is only SOB with ambulation. She didn't know if theprovider wanted to give the any parameters for the HR and BP, and when she should call the providers office. She also reports that the states that the Pt is clearing his throat mor often and it is grunting/phlegmy, but he doesn't bring anything up. She said she didn't know if he had any allergies. Please call and advise. * Telephone Encounter - Jayde Laughlin RN - 11/08/2022 12:01 PM EDT Patient's calls to report that patient's blood pressures and pulses: 11/07/2022- 122/59 47 11/08/2022 124/64 55 asked if he is having any symptoms. states that he is more short of breath with activity.Patient's metoprolol has been on hold since 11/06/2022. Advised that she needs to contact cardiology regarding this. state that she already had and there was not a cardiology nurse available and Dr. Johansen is in only on Fridays. Advised that if patient is more short of breath with activity then patient needs to be seen in ER. wanting to schedule an appointment with provider. thinks that Dr. Arroyo can squeeze patient into schedule. Provider was currently at lunch, advised that I would forward message to provider. states that she will just take patient to [facility] ER when her appointment isdone. Please review and advise, Jayde Laughlin RN documented in this encounterProtestant Hospital04-10-[address] Burns [facility] November 12, 2022 7:59pm Note Date/Time November 12, 2022 8:0 0am [facility] Medical Records Department [address] [place] [address] Progress Note - Hospitalist 11/12/22 0800 MR#: [id number] Acct: [id number] Name: AFSHIN ZEE Rep #:[id number] : 1955 67 From: Felecia Burns MD PCP: Dr. Jaci Arroyo MD Status:AD M IN Location: [address] Reason for Visit Reason for Visit: Diagnoses Pneumonia, unspecified organism (11/11/22) Hypoxemia (11/11/22) Subjective Subjective Patient unable to answer questions due to his expressive aphasia but reports he seems to be in the right direction Objective Data Objective Data Vital Signs: Vital Signs Temp Pulse Resp BP Pulse Ox O2 Del Method O2 Flow Rate 97.9 F 66 18 134/58 H 92 Nasal Cannula 6 11/12/22 07:54 11/12/22 07:54 11/12/22 07:54 11/12/22 07:54 11/12/22 07:54 11/12/22 07:54 11/12/22 07:54 Oxygen Flow Rate (L/min) 6 Oxygen Delivery Method Nasal Cannula Weight: 88.7 kg Body Mass Index (BMI) 28.0 Intake & Output: Intake and Output for Last 24 Hours 11/10/22 11/11/22 11/12/22 23:59 23:59 23:59 Intake Total 810 / 1060 1350 / 1350 Output Total 1600 / 1600 Balance 810 / 260 -250 / -250 Lab / Micro Data Result Diagrams: 11/12/22 05:35 11/12/22 05:35 Labs: Laboratory Results - last 24 hr 11/11/22 13:22: WBC 19.4 H, RBC 3.97 L, Hgb 11.7 L, Hct 36.1 L, MCV 90.9, MCH 29.5, MCHC 32.4, RDW Std Deviation 44.3 H, RDW Coeff of Makayla 13.4, Plt Count 300,MPV 11.4, Immature Gran % (Auto) 0.500, Neut % (Auto) 85.8 H, Lymph % (Auto) 5.8L, [place] % (Auto) 7.5, Eos % (Auto) 0.1, Baso % (Auto) 0.3, Absolute Neuts (auto)16.6 H, Absolute Lymphs (auto) 1.13, Nucleated RBC % 0 11/11/22 13:22: Sodium 136, Potassium 4.1, Chloride 105, Carbon Dioxide 24.0, Anion Gap 7, BUN 19 H, Creatinine 1.28, Estim Creat Clear Calc 56.00, Est GFR (MDRD) Af Amer 72, Est GFR (MDRD) Non-Af 60, BUN/Creatinine Ratio 14.8, Glucose 104, Calcium 8.8, Total Bilirubin 1.30 H, AST 16, ALT 22, Alkaline Phosphatase 85, Total Protein 6.5, Albumin 3.1 L, Globulin 3.4, Albumin/Globulin Ratio 0.9 11/11/22 13:40: Lactic Acid 1.9 11/11/22 13:40: Procalcitonin 4.26 H 11/12/22 05:35: WBC 12.5 H, RBC 3.70 L, Hgb 11.1 L, Hct 33.6 L, MCV 90.8, MCH 30.0, MCHC 33.0, RDW Std Deviation 45.7 H, RDW Coeff of Makayla 13.7, Plt Count 250,MPV 11.2, Immature Gran % (Auto) 0.400, Neut % (Auto) 83.8 H, Lymph % (Auto) 8.9L, [place] % (Auto) 4.8, Eos % (Auto) 1.8, Baso % (Auto) 0.3, Absolute Neuts (auto)10.5 H, Absolute Lymphs (auto) 1.11, Nucleated RBC % 0 11/12/22 05:35: Sodium 139, Potassium 3.6, Chloride 111 H, Carbon Dioxide 25.0, Anion Gap 3 L, BUN 14, Creatinine 0.98, Estim Creat Clear Calc 75.52, Est GFR (MDRD) Af Amer 98, Est GFR (MDRD) Non-Af 81, BUN/Creatinine Ratio 14.3, Glucose 94, Calcium 8.2 L Micro: Microbiology 11/11/22 13:40 Nasal Secretion SARS-CoV-2 & FLU Antigen (Rapid) - Final ABG Data ABG results: ABG 11/11/22 13:53 Specimen Type ART Sample Site R Radial pH 7.44 Bicarbonate Actual 25.8 Total CO2 27 Base Excess 2 O2 Saturation 91 L ABG pCO2 37.8 ABG pO2 59 L Adrian Test Positive O2 Delivery Device Cannula Liter Flow 6.0 Radiography Diagnostic Testing: Radiology Impression Chest X-Ray 11/11/22 13:26 IMPRESSION: Left lung airspace disease consistent with pneumonia given the clinical history. Electronically Signed: Ronny Bergman MD at 14:11 EDT , Physical Exam Narrative General: Alert, oriented, no apparent distress HEENT: Atraumatic, normocephalic Eyes: Anicteric, normal conjunctiva, extraocular movements grossly intact Neck: Supple Respiratory: Slightly coarse at bases, normal respiratory effort Cardiovascular: Regular rate and rhythm GI: Soft, nontender, nondistended Extremities: No edema Musculoskeletal: Moving all extremities, does have a chronic foot drop Neuro: Aphasia Skin: No rashes appreciated Psych: Cooperative Assessment & Plan Assessment/Plan (1) Community acquired pneumonia: (2) Hypoxia: PLAN: Plan #Hypoxia in the setting of chronic hypoxic respiratory failure due to community-acquired pneumonia -Usually only wears 6 L of oxygen at night. Now requiring 6 L of oxygen during the day. -WBC elevated at 19.4 and chest x-ray shows evidence of left lower lobe pneumonia. -Started on IV ceftriaxone and doxycycline as he is allergic to azithromycin. -Check sputum culture. Urine for strep and Legionella. -COVID and flu test are negative. -Titrate oxygen to maintain saturation above 90%. -Breathing treatments with bronchodilators. -get speech therapy to evaluate patient -11/12: WBC count down to 12.5 today, blood cultures pending, sputum culture yet to be collected. Still has high O2 requirement, will monitor closely. No wheezings do not feel we need systemic steroids but low threshold to start givenhistory #History of CVA with residual expressive aphasia: On Plavix and statin #History of A-fib: On amiodarone and Eliquis and metoprolol #Hypertension: On hydrochlorothiazide and amlodipine. IV hydralazine as needed #CAD s/p CABG: On Plavix and statin #DARON: On 6 L of oxygen at night DVT prophylaxis: Already on Eliquis Total time spent on evaluation and management of patient, reviewing chart and specialist notes, discussing plan with patient and his , discussion with nursing and ancillary staff as well as documentation: 30 mins Charges/Coding Visit Charges Inpatient E&M: 29061 Subs Hosp L2 11/12/221958 <Electronically signed by Felecia Burns MD> Cosigner Signature (if applicable): CC: ~ Signed [facility] Work Phone: [phone]) 913-702304-09-[address] Lin [facility] November 11, 2022 5:27pm Note Date/Time November 11, 2022 1:32 pm [facility] Medical Records Department [address] [place] [address] Emergency Department Summary 11/11/22 MR#: [id number] Acct: [id number] Name: AFSHIN ZEE Rep #:[id number] : 1955 67 From: Carlton [place] PCP: Dr. Jaci Arroyo MD Status:AD M IN Location: [place] [address] HPI History of Present Illness Chief Complaint: Shortness of Breath Informant: spouse/S.O. Limited: other (Aphasia due to stroke 6 years ago) Narrative Narrative: Patient presenting by EMS from home sick no other present providing history. History of stroke right-sided residual aphasia 6 years ago. He is taking Eliquis for history of atrial fibrillation with no missed doses. Patient wears oxygen at night 6 L since the stroke per her significant other along with havingsleep apnea history. Does not wear oxygen during the day. States yesterday noted mild coughing and occasional gasping for air. She spoke with PCP, reportsa monitor today more increasing symptoms. EMS arrival 86% on room air he was brought in on nonrebreather transition to nasal cannula 6L. There is been no recent vomiting or diarrhea. Patient at his baseline per significant other. Per nursing other does ambulate with a cane. 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 tract infection Mixed obstructive and restrictive ventilatory defect Respiratory failure Sepsis Smoker Stroke/cerebrovascular accident Home Medications famotidine 20 mg tablet 20 mg PO QHS PRN PRN Gastric Reflux 12/21/16 [History Last Taken 08/15/22] baclofen 10 mg tablet 5 mg PO TID 02/05/17 [Rx Last Taken 08/16/22] multivitamin,[id number] (Complete Multivitamin tablet) 1 tab PO DAILY vitamin 12/04/18 [History Last Taken 08/16/22] potassium chloride 10 mEq tablet,extended release 20 meq PO TID potassium #90 tabs 04/19/20 [Rx Last Taken 08/16/22] ezetimibe 10 mg tablet 10 mg PO DAILY 04/22/21 [History Last Taken 08/16/22] escitalopram oxalate 20 mg tablet 20 mg PO DAILY antidepressant 06/11/21 [History Last Taken 08/16/22] menthol 0.44 %-zinc oxide 20.6 % topical ointment (Calmoseptine) 1 applic topical TID PRN Diaper Rash #0 grams 06/17/21 [Rx Last Taken Unknown] amiodarone 100 mg tablet 100 mg PO DAILY HEART 07/11/21 [History Last Taken 08/16/22] lorazepam 0.5 mg tablet 0.5 mg PO BID anxiety #10 tabs 08/23/21 [Rx Last Taken 08/16/22] metoprolol tartrate 25 mg tablet 12.5 mg PO BID #30 tabs 04/16/22 [Rx Last Taken 08/16/22] albuterol sulfate 90 mcg/actuation aerosol inhaler (Ventolin HFA) 2 inh inhalation Q4H PRN shortness of breath or wheezing #18 grams 05/29/22 [Rx Last Taken Unknown] fluticasone propionate 50 mcg/actuation nasal spray,suspension (Flonase Allergy Relief) 2 spray intranasal DAILY #16 grams 05/29/22 [Rx Last Taken 08/15/22] IV poll #1 ea 08/07/22 [Rx Last Taken Unknown] buspirone 10 mg tablet 10 mg PO TID ANXIETY 08/16/22 [History Last Taken 08/16/22] trazodone 50 mg tablet 50 mg PO QHS DEPRESSION 08/16/22 [History Last Taken 08/15/22] miconazole nitrate 2 % topical cream 1 applic topical BID 14 days #15 grams 08/17/22 [Rx Last Taken Unknown] budesonide-formoterol HFA 160 mcg-4.5 mcg/actuation aerosol inhaler (Symbicort) 2 puff inhalation BID #3 ea 08/22/22 [Rx Last Taken Unknown] acetaminophen 500 mg tablet 1,000 mg PO Q6H PRN Pain 11/11/22 [History Last Taken Unknown] amlodipine 5 mg tablet 5 mg PO DAILY 11/11/22 [History Last Taken Unknown] apixaban 5 mg tablet (Eliquis) 5 mg PO BID 11/11/22 [History Last Taken Unknown] clopidogrel 75 mg tablet (Plavix) 75 mg PO DAILY anti platelet 11/11/22 [History Last Taken Unknown] hydrochlorothiazide 12.5 mg tablet 12.5 mg PO DAILY diuretic 11/11/22 [History Last Taken Unknown] Allergy/AdvReac Type Severity Reaction Status Date / Time azithromycin Allergy Intermediate Hives Verified 08/22/22 10:46 [From Zithromax Z-Sacha] lisinopril Allergy Intermediate Hives and Verified 08/22/22 10:46 diarrhea Sulfa (Sulfonamide Allergy Hives Verified 08/22/22 10:46 Antibiotics) Family History Mother Diabetes Heart disease Father AAA (abdominal aortic aneurysm) Heart disease Surgical History History of gastrostomy tube placement (11/07/16) History of tracheostomy (11/07/16) 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 Social History (Updated 11/11/22 @ 15:33 by Melonie Burgos) household members: spouse Smoking Status: Former smoker how long ago did patient quit smokin years ago, 2ppd second hand exposure: Yes alcohol intake: never substance use type: does not use caffeine: No ROS ROS ED Review of Systems ROS Unobtainable: other Details: Limited due to stroke history. Constitutional Constitutional ED: Denies chills, fever(s) or sweats Respiratory/Chest Respiratory/Chest: Reports cough and dyspnea Gastrointestinal Gastrointestinal: Denies diarrhea or vomiting EXAM Physical Exam Const Vital Signs: 11/11/22 13:14 11/11/22 13:11 11/11/22 13:18 Temperature 98.6 F Temperature Source Temporal Pulse Rate 59 L Respiratory Rate 18 Respiratory Effort Short of Breath Respiratory Pattern Normal Blood Pressure 123/63 H Blood Pressure Mean 83 Pulse Ox 81 89 Oxygen Delivery Method Room Air Nasal Cannula Oxygen Flow Rate (L/min) 5 11/11/22 13:26 Temperature Temperature Source Pulse Rate Respiratory Rate Respiratory Effort Respiratory Pattern Blood Pressure Blood Pressure Mean Pulse Ox 93 Oxygen Delivery Method Room Air Oxygen Flow Rate (L/min) 6 Positive well nourished and well developed Constitutional Narrative: Nontoxic on nasal cannula. No respiratory distress. General Appearance ED: well developed and NAD HEENT Reports moist mucous membranes normocephalic and atraumatic Eyes PERRL, EOMs intact bilaterally and conjunctivae normal General Eye ED: Yes normal appearance of both eyes Neck no lymphadenopathy and supple General: Negative for tenderness Chest Wall Chest: Negative for tenderness Resp normal respiratory effort and normal air movement Effort and Inspection: symmetric chest movement; Negative for respiratory distress Cardio regular rate, regular rhythm and no murmurs Peripheral Pulses: pulses 2+ throughout GI normal to inspection, nondistended, normoactive bowel sounds and non-tender Palpation: Negative for guarding or rebound tenderness present Back/Spine no CVA tenderness and no thoracic nor lumbar tenderness Extremity General Extremety ED: Negative for edema or tenderness General Extremity: Negative for edema Neuro Neuro Narrative: Right-sided residual deficits. Sensorium / Orientation: awake and alert Skin no rashes or lesions noted and no wounds MDM MDM MDM Narrative Medical decision making narrative: Interventions / MDM: Differential diagnosis: Pneumonia, bronchitis, COVID, influenza, hypoxia Diagnosis considered but do not suspect: Pulmonary embolism however patient is on Eliquis. My EKG interpretation: Sinus rate of 53, no ST changes. Imaging independently reviewed and interpreted by myself: 1 view chest x-ray: Left-sided infiltrate also read by radiology. External documents reviewed: N/A Test considered but not ordered:N/A ED course: Sepsis labs ordered due to hypoxia. No respiratory distress however is on 6 L of oxygen. He typically wears at night per history from significant other. White count returned at 19 lactic acid 1.9. ABG does note hypoxia. PaO2 of 59 on 6 L. pH is normal at 7.44. Chest x-ray consistent with pneumoniaon left side. COVID influenza negative. Allergy to Zithromax and given Rocephin and doxycycline for commune acquired pneumonia. Re-evaluation: stable, discussed with hospitalist Dr. Escalante For admission to PCU. Disposition discussed with patient/family/significant other: Patient Case discussed with consulting clinician: Hospitalist, Dr. Escalante Lab Data Attestation: I reviewed the patient's lab results. Labs: Laboratory Results - last 24 hr 11/11/22 11/11/22 11/11/22 13:22 13:22 13:40 WBC 19.4 H RBC 3.97 L Hgb 11.7 L Hct 36.1 L MCV 90.9 MCH 29.5 MCHC 32.4 RDW Std Deviation 44.3 H RDW Coeff of Makayla 13.4 Plt Count 300 MPV 11.4 Immature Gran % (Auto) 0.500 Neut % (Auto) 85.8 H Lymph % (Auto) 5.8 L [place] % (Auto) 7.5 Eos % (Auto) 0.1 Baso % (Auto) 0.3 Absolute Neuts (auto) 16.6 H Absolute Lymphs (auto) 1.13 Nucleated RBC % 0 Sodium 136 Potassium 4.1 Chloride 105 Carbon Dioxide 24.0 Anion Gap 7 BUN 19 H Creatinine 1.28 Estim Creat Clear Calc 56.00 Est GFR (MDRD) Af Amer 72 Est GFR (MDRD) Non-Af 60 BUN/Creatinine Ratio 14.8 Glucose 104 Lactic Acid 1.9 Calcium 8.8 Total Bilirubin 1.30 H AST 16 ALT 22 Alkaline Phosphatase 85 Total Protein 6.5 Albumin 3.1 L Globulin 3.4 Albumin/Globulin Ratio 0.9 Procalcitonin 11/11/22 13:40 WBC RBC Hgb Hct MCV MCH MCHC RDW Std Deviation RDW Coeff of Maakyla Plt Count MPV Immature Gran % (Auto) Neut % (Auto) Lymph % (Auto) [place] % (Auto) Eos % (Auto) Baso % (Auto) Absolute Neuts (auto) Absolute Lymphs (auto) Nucleated RBC % Sodium Potassium Chloride Carbon Dioxide Anion Gap BUN Creatinine Estim Creat Clear Calc Est GFR (MDRD) Af Amer Est GFR (MDRD) Non-Af BUN/Creatinine Ratio Glucose Lactic Acid Calcium Total Bilirubin AST ALT Alkaline Phosphatase Total Protein Albumin Globulin Albumin/Globulin Ratio Procalcitonin 4.26 H ABG Data ABG results: ABG 11/11/22 13:53 Specimen Type ART Sample Site R Radial pH 7.44 Bicarbonate Actual 25.8 Total CO2 27 Base Excess 2 O2 Saturation 91 L ABG pCO2 37.8 ABG pO2 59 L Adrian Test Positive O2 Delivery Device Cannula Liter Flow 6.0 Radiography Diagnostic Testing: Clinical Impression(s) from Imaging Studies Chest X-Ray 11/11/22 13:26 IMPRESSION: Left lung airspace disease consistent with pneumonia given the clinical history. Electronically Signed: Ronny Bergman MD at 14:11 EDT , Discharge Plan Dx/Rx/DC Orders Clinical Impression: Community acquired pneumonia, History of stroke, Hypoxia, Aphasia Disposition Disposition: Acute Care Hospital [facility] Discharge Date/Time: 11/11/22 15:00 What to do if you have Problems For any increased pain, shortness of breath, bleeding, nausea or vomiting, chestpain, or any unexpected problems, contact your Primary Care Provider. Call [facility] ([phone]) or report to the closest Emergency Room. Call 911 if necessary. 11/11/22 172 <Electronically signed by Carlton Toledo> Cosigner Signature (if applicable): CC: Dr. Jaci Arroyo MD ~ Signed [facility] Work Phone: [phone]) 927-835604-09-2023 History and physical note Author Dr. Escalante [facility] November 11, 2022 3:32pm Note Date/Time November 11, 2022 2:34 pm [facility] Medical Records Department [address] [place] [id number] H&P Exam - Hospitalist 11/11/22 1427 MR#: [id number] Acct: [id number] Name: AFSHIN ZEE Rep #:[id number] : 1955 67 From: Arti Escalante MD PCP: Dr. Jaci Arroyo MD Status:AD M IN Location: [facility] [id number] HPI - General General Date of Admission: 11/11/22 Date of Service: 11/11/22 HPI Narrative AFSHIN ZEE, is a 67 M with a PMH as outlined who presents via the ED on with a complaint of coughing and shortness of breath. 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 He wears 6L of oxygen at night, but not during the day. HE was noted to be coughing yesterday and was also gastpingg for air. His symptoms wosened today and so EMS was called. He was found to be saturating at 86% on room air and was brought to the ED. He has had no fever, chills, chest pain, palpitations, dizziness, nausea, vomiting or diarrhea. Review of systems is otherwise negative. Vitals in the ED with temperature of 98.6 Fahrenheit with pulse rate of 59 and blood pressure of 123/63. He was saturating at 93% on 6 L of oxygen. CBC showed hemoglobin of 11.7 with WBC of 19.4 and platelets of 300. Chemistry was largely unremarkable apart from mildly elevated total bilirubin of 1.3. Chest x-ray showed left lung airspace disease consistent with pneumonia. She has beenadmitted to be managed for acute on chronic hypoxic respiratory failure due to community-acquired pneumonia with concern for aspiration. 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 tract infection Mixed obstructive and restrictive ventilatory defect Respiratory failure Sepsis Smoker Stroke/cerebrovascular accident Home Medications famotidine 20 mg tablet 20 mg PO QHS PRN PRN Gastric Reflux 12/21/16 [History Last Taken 08/15/22] baclofen 10 mg tablet 5 mg PO TID 02/05/17 [Rx Last Taken 08/16/22] multivitamin,[id number] (Complete Multivitamin tablet) 1 tab PO DAILY vitamin 12/04/18 [History Last Taken 08/16/22] potassium chloride 10 mEq tablet,extended release 20 meq PO TID potassium #90 tabs 04/19/20 [Rx Last Taken 08/16/22] ezetimibe 10 mg tablet 10 mg PO DAILY 04/22/21 [History Last Taken 08/16/22] escitalopram oxalate 20 mg tablet 20 mg PO DAILY antidepressant 06/11/21 [History Last Taken 08/16/22] menthol 0.44 %-zinc oxide 20.6 % topical ointment (Calmoseptine) 1 applic topical TID PRN Diaper Rash #0 grams 06/17/21 [Rx Last Taken Unknown] amiodarone 100 mg tablet 100 mg PO DAILY HEART 07/11/21 [History Last Taken 08/16/22] lorazepam 0.5 mg tablet 0.5 mg PO BID anxiety #10 tabs 08/23/21 [Rx Last Taken 08/16/22] metoprolol tartrate 25 mg tablet 12.5 mg PO BID #30 tabs 04/16/22 [Rx Last Taken 08/16/22] albuterol sulfate 90 mcg/actuation aerosol inhaler (Ventolin HFA) 2 inh inhalation Q4H PRN shortness of breath or wheezing #18 grams 05/29/22 [Rx Last Taken Unknown] fluticasone propionate 50 mcg/actuation nasal spray,suspension (Flonase Allergy Relief) 2 spray intranasal DAILY #16 grams 05/29/22 [Rx Last Taken 08/15/22] IV poll #1 ea 08/07/22 [Rx Last Taken Unknown] buspirone 10 mg tablet 10 mg PO TID ANXIETY 08/16/22 [History Last Taken 08/16/22] trazodone 50 mg tablet 50 mg PO QHS DEPRESSION 08/16/22 [History Last Taken 08/15/22] miconazole nitrate 2 % topical cream 1 applic topical BID 14 days #15 grams 08/17/22 [Rx Last Taken Unknown] budesonide-formoterol HFA 160 mcg-4.5 mcg/actuation aerosol inhaler (Symbicort) 2 puff inhalation BID #3 ea 08/22/22 [Rx Last Taken Unknown] acetaminophen 500 mg tablet 1,000 mg PO Q6H PRN Pain 11/11/22 [History Last Taken Unknown] amlodipine 5 mg tablet 5 mg PO DAILY 11/11/22 [History Last Taken Unknown] apixaban 5 mg tablet (Eliquis) 5 mg PO BID 11/11/22 [History Last Taken Unknown] clopidogrel 75 mg tablet (Plavix) 75 mg PO DAILY anti platelet 11/11/22 [History Last Taken Unknown] hydrochlorothiazide 12.5 mg tablet 12.5 mg PO DAILY diuretic 11/11/22 [History Last Taken Unknown] Allergy/AdvReac Type Severity Reaction Status Date / Time azithromycin Allergy Intermediate Hives Verified 08/22/22 10:46 [From Zithromax Z-Sacha] lisinopril Allergy Intermediate Hives and Verified 08/22/22 10:46 diarrhea Sulfa (Sulfonamide Allergy Hives Verified 08/22/22 10:46 Antibiotics) Family History Mother Diabetes Heart disease Father AAA (abdominal aortic aneurysm) Heart disease Surgical History History of gastrostomy tube placement (11/07/16) History of tracheostomy (11/07/16) 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 Social History household members: spouse Smoking Status: Former smoker how long ago did patient quit smokin years ago, 2ppd second hand exposure: Yes alcohol intake: never substance use type: does not use caffeine: No ROS Constitutional Constitutional: Denies anorexia, chills, fatigue, fever(s), malaise or weakness Eyes Eyes: Denies change in vision ENT HEENT: Denies dysphagia, headache(s), hearing loss or sore throat Cardiovascular Cardiovascular: Reports dyspnea on exertion; Denies chest pain, edema, lightheadedness, orthopnea, palpitations, rapid heart rate or syncope Respiratory/Chest Respiratory/Chest: Reports cough, dyspnea, shortness of breath at rest, shortness of breath with exertion and wheezing; Denies hemoptysis or productive cough Gastrointestinal Gastrointestinal: Denies abdominal pain, constipation, diarrhea, nausea or vomiting Genitourinary Genitourinary: Denies burning urination Neurologic Neurologic: Reports abnormal speech Psychiatric Psychiatric: Denies anxiety or depression Vital Signs Vital Signs Vital Signs: 11/11/22 13:14 11/11/22 13:11 11/11/22 13:18 Temperature 98.6 F Temperature Source Temporal Pulse Rate 59 L Respiratory Rate 18 Respiratory Effort Short of Breath Respiratory Pattern Normal Blood Pressure 123/63 H Blood Pressure Mean 83 Pulse Ox 81 89 Oxygen Delivery Method Room Air Nasal Cannula Oxygen Flow Rate (L/min) 5 11/11/22 13:26 Temperature Temperature Source Pulse Rate Respiratory Rate Respiratory Effort Respiratory Pattern Blood Pressure Blood Pressure Mean Pulse Ox 93 Oxygen Delivery Method Room Air Oxygen Flow Rate (L/min) 6 Weight Weight: 208 lb 1.862 oz Body Mass Index (BMI) 30.7 Physical Exam Const alert, oriented x3 and no apparent distress General Appearance: cooperative HEENT normocephalic, head/scalp atraumatic, hearing grossly normal bilaterally and moist oral mucous membranes Mouth: oral and palatal mucosa normal Eyes PERRL, EOMs intact bilaterally and conjunctivae normal Neck no lymphadenopathy and supple Resp Resp Narrative: on 6L of oxygen. Diminished breath sounds bibasally, no wheezes or crackles. Cardio regular rate, regular rhythm, S1 normal heart sound, S2 normal heart sound and no murmurs GI normal to inspection, nondistended, normoactive bowel sounds, soft to palpation,non-tender and non-distended Extremity normal to inspection, full ROM and no clubbing, cyanosis or edema Neuro oriented x3 and CN's II-XII intact bilaterally Neuro Narrative: expressive aphasia, alert, power in RUE and RLE is 1/5 Sensorium / Orientation: awake and alert Psych affect normal Results Lab / Micro Data Result Diagrams: 11/11/22 13:22 11/11/22 13:22 Labs: Laboratory Results - last 24 hr 11/11/22 13:22: WBC 19.4 H, RBC 3.97 L, Hgb 11.7 L, Hct 36.1 L, MCV 90.9, MCH 29.5, MCHC 32.4, RDW Std Deviation 44.3 H, RDW Coeff of Makayla 13.4, Plt Count 300,MPV 11.4, Immature Gran % (Auto) 0.500, Neut % (Auto) 85.8 H, Lymph % (Auto) 5.8L, [place] % (Auto) 7.5, Eos % (Auto) 0.1, Baso % (Auto) 0.3, Absolute Neuts (auto)16.6 H, Absolute Lymphs (auto) 1.13, Nucleated RBC % 0 11/11/22 13:22: Sodium 136, Potassium 4.1, Chloride 105, Carbon Dioxide 24.0, Anion Gap 7, BUN 19 H, Creatinine 1.28, Estim Creat Clear Calc 56.00, Est GFR (MDRD) Af Amer 72, Est GFR (MDRD) Non-Af 60, BUN/Creatinine Ratio 14.8, Glucose 104, Calcium 8.8, Total Bilirubin 1.30 H, AST 16, ALT 22, Alkaline Phosphatase 85, Total Protein 6.5, Albumin 3.1 L, Globulin 3.4, Albumin/Globulin Ratio 0.9 11/11/22 13:40: Lactic Acid 1.9 Micro: Microbiology 11/11/22 13:40 Nasal Secretion SARS-CoV-2 & FLU Antigen (Rapid) - Final ABG Data ABG results: ABG 11/11/22 13:53 Specimen Type ART Sample Site R Radial pH 7.44 Bicarbonate Actual 25.8 Total CO2 27 Base Excess 2 O2 Saturation 91 L ABG pCO2 37.8 ABG pO2 59 L Adrian Test Positive O2 Delivery Device Cannula Liter Flow 6.0 Radiology Impression Chest X-Ray 11/11/22 13:26 IMPRESSION: Left lung airspace disease consistent with pneumonia given the clinical history. Electronically Signed: Ronny Bergman MD at 14:11 EDT , Assessment & Plan Assessment/Plan (1) Community acquired pneumonia: (2) Hypoxia: PLAN: Plan #Hypoxia in the setting of chronic hypoxic respiratory failure due to community-acquired pneumonia * Usually only wears 6 L of oxygen at night. Now requiring 6 L of oxygen during the day. * WBC elevated at 19.4 and chest x-ray shows evidence of left lower lobe pneumonia. * Started on IV ceftriaxone and doxycycline as he is allergic to azithromycin. * Check sputum culture. Urine for strep and Legionella. * COVID and flu test are negative. * Titrate oxygen to maintain saturation above 90%. * Breathing treatments with bronchodilators. * get speech therapy to evaluate patient * #History of CVA with residual expressive aphasia: On Plavix and statin #History of A-fib: On amiodarone and Eliquis #Hypertension: On hydrochlorothiazide and amlodipine. IV hydralazine as needed #CAD s/p CABG: On Plavix and statin #DARON: On 6 L of oxygen at night DVT prophylaxis: Already on Eliquis CODE STATUS:full code * Patient and counseled extensively about different types of CODE STATUS including full code, DNR CCA and DNR CCA. Patient elects to be full code. Total [id number] time 17 minutes. Total time spent on evaluation and management of patient, reviewing chart and specialist notes, discussing plan with patient and his , discussion with nursing and ancillary staff as well as documentation: 65 mins Charges/Coding Visit Charges Inpatient E&M: 63385 Init Hosp L2 Procedures Hospitalists Procedures: 33684 Advncd Care Plan 30 Min 11/11/22 1532 <Electronically signed by Arti Escalante MD> Cosigner Signature (if applicable): CC: Dr. Jaci Arroyo MD; Dr. Arti Escalante MD~ Signed [facility] Work Phone: [phone]) 335-880404-07-2023 Miscellaneous Notes* Telephone Encounter - Desmond Ambriz PA-C - 11/09/2022 2:52 PM EDT Please, notify patient the urine culture was negative Culture 10,000 -<50,000 CFU/ml Mixed microbiota Abnormal Thank you, Desmond Ambriz MPAS, MA, JEREMY * Telephone Encounter - Sarika Mackey Ma - 11/09/2022 11:26 AM EDT Patients called in stating she brought in a urine specimen for the patient and is waiting to hear results. Please contact , Eli, back at [phone]. documented in this encounterProtestant Hospital04-04-2023 Miscellaneous Notes* Telephone Encounter - Jaci Arroyo MD - 11/06/2022 3:51 PM EDT Noted Jaci Arroyo MD * Telephone Encounter - Jayde Laughlin RN - 11/06/2022 3:29 PM EDT Jessie CABRERA calling from [facility] to report plan of care for patient 2 times a week times 1 week and 1 time a week for 1 week. Physical Therapy will work with patient on balance, gait training, and lowerextremity strength. Patient will then transition to outpatient therapy. FYI Before therapy patient's pulse was in 50s. Pulse after walking was 63. Home health will continue to monitor this. is also writing down pulses. No Call back needed Jayde Laughlin RN documented in this encounterProtestant Hospital04-04-2023 Miscellaneous Notes* Telephone Encounter - Mariano Beckman APRN.CNP - 11/06/2022 11:02 AM EDT The following approved medication requests have been transmitted electronically. Requested Prescriptions Pending Prescriptions Disp Refills traZODone (DESYREL) 50 mg tablet [Pharmacy Med Name: TRAZODONE 50 MG TABLET] 30 tablet 3 Sig: take 1 tablet by mouth at bedtime Mariano Beckman APRN.ESTELLA documented in this encounterProtestant Hospital04-03-2023 Miscellaneous Notes* Telephone Encounter - Jaci Arroyo MD - 11/05/2022 2:14 PM EDT Noted and agree Jaci Arroyo MD * Telephone Encounter - Loida Vazquez LPN - 11/05/2022 2:01 PM EDT Nayeli Whitmore from [facility] Home Health calling with ST plan of care, 1 visit weekly for 2 weeks, pending insurance approval. documented in this encounterProtestant Hospital04-03-2023 Miscellaneous Notes* Telephone Encounter - Monica Cruz Ma - 11/05/2022 1:24 PM EDT Kylie notified and voiced understanding. Monica Cruz Ma * Telephone Encounter - Jaci Arroyo MD - 11/05/2022 1:19 PM EDT I would suggest holding the metoprolol and see if his heart rate improves Jaci Arroyo MD * Telephone Encounter - Jayde Laughlin RN - 11/05/2022 12:56 PM EDT Nayeli PERSAUD from [facility] Calls and states that patient's heart rate continues to be out of parameters. 11 AM 117/57 45 12:15 PM 123/56 45 Patient continues to be asymptomatic. If provider wants to change anything, please give Kylie High RN Clinical Highway Safety Engineer [facility] call back at [phone]. Jayde Laughlin RN documented in this encounterProtestant Hospital03-30-2023 Miscellaneous Notes* Telephone Encounter - Monica Cruz Ma - 11/01/2022 11:57 AM EDT Eli notified. Monica Cruz Ma * Telephone Encounter - Jaci Arroyo MD - 11/01/2022 11:54 AM EDT Those numbers all look good; stay on the same medications for now Jaci Arroyo MD * Telephone Encounter - Therese Paz LPN - 11/01/2022 11:00 AM EDT called and they just went for a small walk and pt's BP was 103/56 oxygen level was 94% and pulse was 57. Please advise . Therese Paz LPN * Telephone Encounter - Khris Gutierrez RN - 11/01/2022 9:40 AM EDT Pts called in about Pts low HR. She states that sometimes it runs low, but she isn't sure if it runs this low. She state Pt was asymptomatic. She would like a call back from providers office with an update as well. * Telephone Encounter - Therese Paz LPN - 11/01/2022 9:29 AM EDT Nayeli Lyon with [facility] Speech called to let you know she saw pt today and pt has a pulse that is out ofparameter for her. took vital signs at 8:30 am BP was 108/58 Pulse 48 took again before she left 9:15 am BP was 116/58 Pulse 46 Pt denies any light headed or dizziness and not having any symptoms. If there is any changes in medication or further instructions please call [phone] and ask for Kylie High, Clinical Highway Safety Engineer. Therese Paz LPN documented in this encounterProtestant Hospital03-28-2023 Miscellaneous Notes* Telephone Encounter - Jaci Arroyo MD - 10/30/2022 4:20 PM EDT Noted and agree Jaci Arroyo MD * Telephone Encounter - Amaya Kessler RN - 10/30/2022 4:05 PM EDT [facility] OT calling with plan of care for patient. OT plans to see patient 1x/week for 1 week, then 2x/week for 3 weeks for ADL's, home exercises and transfers. Valentine also reports a delay of care for patient in getting visit completed today. No call back needed if provider agreeable. Amaya Kessler RN documented in this encounterProtestant Hospital03-20-2023 Miscellaneous Notes* Telephone Encounter - Rachel Buckley Ma - 10/22/2022 2:15 PM EDT Call to [facility], received verified VM. Left detailed message with information below, if questions tocontact the office and speak with FM Triage Nurse. Rachel Buckley Ma * Telephone Encounter - Jaci Arroyo MD - 10/22/2022 2:11 PM EDT OK to change the date of ST eval d/t having to switch speech therapist. Jaci Arroyo MD * Telephone Encounter - Raiza John RN - 10/22/2022 9:37 AM EDT Ginger with [facility] calls to request a verbal order to change the date of ST eval d/t having to switch speech therapist. Please all verbal order to [phone] if provider agrees. Raiza John RN documented in this encounterProtestant Hospital03-20-2023 Miscellaneous Notes* Telephone Encounter - Kia Waters LPN - 10/22/2022 10:15 AM EDT Received records from [facility]: Home Health Certification. Informational only. Scanned to [employer] via [employer]. Kia Waters LPN documented in this encounterProtestant Hospital03-13-2023 Instructions* Patient Instructions* Robin Johansen MD - 10/15/2022 4:07 PM EDT We will repeat fasting blood work documented in this encounterProtestant Hospital03-13-2023 History of Present illness Narrative* Robin Johansen MD - 10/15/2022 4:00 PM EDT Images from the original note were not included. [facility] SECTION OF REGIONAL CARDIOLOGY Cardiology ([facility]) [address] [facility] [id number] OUTPATIENT VISIT DATE 09/03/2022 PRIMARY CARE PHYSICIAN: Jaci Arroyo [address] [place] [address] HISTORY OF PRESENT ILLNESS: Mr. Zee is a 67 year old gentleman with a history of coronary artery disease and prior coronary artery bypass grafting in October 2016 complicated by left hemispheric CVA. He has resulting weakness that is right-sided and dysphasia. He was accompanied to the office visit by his . She brought him to an earlier office visit due to concerns for regarding bruising and bleeding on his blood thinners. He has occasional dark bruises on his arms secondary to trauma. She has not noticed any evidence of bleeding or signs concerning for melena. He has had no significant change in his functional capacity. 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 Kimbrough on 10/30/2016. SECONDARY PROCEDURES PERFORMED: 1. Cerebral angiography and stenting of the left subclavian artery performed by Dr. West on 11/02/2016. 2. Tracheostomy performed by Dr. Delgado on 11/07/2016. 3. Fluoroscopically guided placement of gastrostomy tube into the stomach performed on 11/07/2016. PAST MEDICAL HISTORY Diagnosis Date Acute cerebral infarction (HCC) left Aneurysm (HCC) Atrial fibrillation (HCC) 11/2016 Balanitis CAD (coronary artery disease) Carotid stenosis Dysphasia Hyperglycemia Hypertension PVD (peripheral vascular disease) (HCC) Respiratory failure (HCC) hypoxic-ventilator dependent Stroke (cerebrum) (HCC) Tobacco abuse PAST SURGICAL HISTORY Procedure Laterality Date CABG (5) VENOUS GRAFTS & ARTERIAL GRAFT(S) 10/30/2016 CABG CONSULT 10/30/2016 multi vessel HEART CATHETERIZATION 09/17/2016 TRACHEOSTOMY HX SOCIAL HISTORY Social History Tobacco Use Smoking status: Former Years: 45.00 Types: Cigarettes Quit date: 07/08/2016 Years since quittin.2 Smokeless tobacco: Never Tobacco comments: 07/08/2016 Vaping Use Vaping Use: Never used Substance Use Topics Alcohol use: No Drug use: Never FAMILY HISTORY Problem Relation Age of Onset Heart Mother CO in her 70s, pacemaker Diabetes Mother Stroke Father other (AAA) Father other (CAD) Brother Hypertension Brother ALLERGIES: ALLERGIES Allergen Reactions Sulfate Salt Hives Zpak [Azithromycin] Hives Lisinopril Swelling Lip swelling after starting lisinopril. MEDICATIONS: cephALEXin (KEFLEX) 500 mg capsule Take 1 capsule by mouth three times daily for 14 days. baclofen (LIORESAL) 10 mg tablet Take 0.5 tablets by mouth three times daily. tiotropium bromide (SPIRIVA RESPIMAT) 2.5 mcg/actuation inhaler Inhale as instructed. hydroCHLOROthiazide (HYDRODIURIL, ESIDRIX) 12.5 mg tablet Take 1 tablet by mouth once daily. losartan (COZAAR) 25 mg tablet take 1 tablet by mouth once daily miconazole (MONISTAT-DERM,LANCE) 2 % cream Apply to affected area twice daily. traZODone (DESYREL) 100 mg tablet Take 1 tablet by mouth daily at bedtime. busPIRone (BUSPAR) 10 mg tablet Take 1 tablet by mouth three times daily. potassium chloride (K-TAB) 10 mEq tablet Take 2 tablets by mouth three times daily. albuterol (PROVENTIL) 2.5 mg /3 mL (0.083 %) nebulizer solution Use 3 mL via nebulizer every 4 hours as needed for wheezing/shortness of breath. Use over 5-15minutes. multivitamin tablet Take 1 tablet by mouth once daily. amiodarone (PACERONE) 100 mg tablet Take 1 tablet by mouth once daily. Do not take if heart rate isless than 40 amLODIPine (NORVASC) 10 mg tablet Take 1/2 tablet twice daily atorvastatin (LIPITOR) 40 mg tablet Take 1 tablet by mouth once daily. clopidogrel (PLAVIX) 75 mg tablet Take 1 tablet by mouth once daily. apixaban (ELIQUIS) 5 mg tab(s) TAKE ONE (1) TABLET BY MOUTH TWICE DAILY escitalopram oxalate (LEXAPRO) 20 mg tablet Take 1 tablet by mouth once daily. famotidine (PEPCID) 20 mg tablet Take 1 tablet by mouth at bedtime as needed. ezetimibe (ZETIA) 10 mg tablet Take 1 tablet by mouth once daily. fluticasone (FLONASE) 50 mcg/actuation nasal spray Use 1 [place] in each nostril twice daily. Rinse mouth after use. albuterol HFA (PROVENTIL HFA, VENTOLIN HFA) 90 mcg/actuation inhaler Inhale 2 Puffs as instructed every 4 hours as needed for Wheezing/Shortness of Breath. metoprolol tartrate, short acting, (LOPRESSOR) 25 mg tablet Take 0.5 tablets by mouth twice daily. (Patient taking differently: Take 12.5 mg by mouth twice daily. Hold if heart rate is less than 60) Blood Pressure Monitor kit 1 application twice daily. Measure patient for correct size. Patient needs cuff for left arm readings. COMPOUNDED PRESCRIPTION Articulating AFO foot brace for right leg. Send to [employer]. Dx: I63.9 COMPOUNDED PRESCRIPTION EMBER WALKER DX I63.9 weight 162 # Diaper,Brief, Adult,Disposable (DEPEND REAL FIT BRIEF MEN L/XL) misc 1 Each as needed. Blood Pressure Monitor kit 1 Kit once daily. Please measure patient for correct size. LORazepam (ATIVAN) 0.5 mg Take 1 tablet by mouth three times daily as needed for up to 90 days. REVIEW OF SYSTEMS: Difficult to obtain PHYSICAL EXAMINATION: BP 118/70 (BP Site: Left Arm, BP Position: Sitting, BP Cuff Size: Large Adult) Pulse 72 Wt 87.1kg (192 lb) SpO2 91% BMI 27.55 kg/m General: Pleasant gentleman sitting appears comfortable and in no apparent distress. He is able to respond appropriately to questions with yes and no answers. HEENT: Carotid upstrokes are brisk on the right. No carotid upstroke noted on the left. No JVD. Pulmonary: Diminished breath sounds noted throughout. No rales, wheezes, rhonchi Cardiovascular: Normal S1, S2 with regular rate and rhythm. No murmurs, rubs, or gallops Extremities: Warm, well-perfused, immobility noted in his right upper and lower extremity. No lowerextremity edema. CARDIOVASCULAR MEDICINE TESTING: ECG in the office 04/03/2021: Sinus bradycardia with first-degree AV block. Left axis deviation. Inferior infarct with Q waves in II, III and aVF. Nonspecific diffuse ST-T wave changes Echocardiogram [facility] 12/16/2020: Left ventricular systolic function is normal Estimated ejection fraction is 60%. Left atrium is mildly enlarged Mild-moderate (1-2+) mitral valve insufficiency Mild tricuspid valve insufficiency Trivial pulmonic valve insufficiency Right ventricular systolic pressure estimated to be 30 mmHg No evidence of diastolic dysfunction IMPRESSION: Mr. Zee is a 67 year old gentleman with a history of multivessel coronary artery disease and coronary bypass grafting in October 2016 ([place]-LAD, SVG-D1, - OM, -PDA, -AM of RCA), complicated by left MCA stroke. He is also treated for paroxysmal atrial fibrillation, hypertension and dyslipidemia. He has a prior significant smoking history and quit at the time of his coronary bypass grafting. He presents to the office for routine follow-up PLAN AND RECOMMENDATIONS: 1. Coronary artery disease involving [place] coronary artery of [place] heart without angina pectoris- ICD9: 414.01, ICD10: I25.10 (primary diagnosis) No apparent signs or symptoms concerning for angina. Continue current medical therapy and risk factor modification - COMP METABOLIC PANEL 2. Paroxysmal atrial fibrillation (HCC) - ICD9: 427.31, ICD10: I48.0 Maintained on Eliquis for stroke risk reduction. I discussed the need for Eliquis and Plavix due tohis medical problems. He has not had any overt signs of bleeding. Continue current treatment regiment. - TSH BLD 3. Essential hypertension - ICD9: 401.9, ICD10: I10 Trolled on current regimen. 4. Mixed hyperlipidemia - ICD9: 272.2, ICD10: E78.2 Maintained on Lipitor 40 mg daily. Repeat fasting blood work before next office visit - LIPID PANEL BASIC - COMP METABOLIC PANEL 5. Bradycardia - ICD9: 427.89, ICD10: R00.1 6. Occlusion of left carotid artery - ICD9: 433.10, ICD10: I65.22 Robin Johansen MD documented in this encounterProtestant Hospital03-13-2023 Miscellaneous Notes* Telephone Encounter - Kia Waters LPN - 10/15/2022 1:23 PM EDT Called Eli. Verified name and date of of patient. Informed of results/orders. Verbalizes understanding. Kia Waters LPN * Telephone Encounter - Desmond Ambriz PA-C - 10/15/2022 11:29 AM EDT Please, notify patient the urine culture was positive Treatment e-scripted: Keflex 500 mg x 14 days And will need a 2 week post-treatment urine culture ( orders are in) Thank you, Desmond Ambriz MPAS, MA, JEREMY * Telephone Encounter - Lora James RN - 10/15/2022 9:10 AM EDT Eli Afshin's called. Eli brought in a urine sample on Saturday for a urine culture. Afhsin is very uncomfortable and Eli would like to know the results. Lora James RN documented in this encounterProtestant Hospital03-13-2023 Miscellaneous Notes* Telephone Encounter - Kia Waters LPN - 10/15/2022 9:22 AM EDT Patients , Eli, called. Verified name and date of of her . States she wants to cancel out previous message and will bring her in for appointment at 1600. Kia Waters LPN * Telephone Encounter - Mayela Mcgrath LPN - 10/15/2022 8:51 AM EDT Patient called, verified name and date of , regarding appointment for at 4 p.m. Patient's had knee surgery, cannot drive. She would like to know if Dr. Johansen could call Afshin for the appointment instead of her having to find a ride for him. Please review and advise patient. Mayela Mcgrath LPN documented in this encounterProtestant Hospital03-10-2023 Miscellaneous Notes* Telephone Encounter - Raiza John RN - 10/12/2022 8:51 AM EST Call placed to [facility] and spoke to Kylie. Verbal orders given as requested below. Raiza John RN * Telephone Encounter - Monica Cruz Ma - 10/11/2022 5:09 PM EST [facility] office closed. Will call back tomorrow Monica Cruz Ma October 11, 2022 5:09 PM * Telephone Encounter - Jaci Arroyo MD - 10/11/2022 5:01 PM EST OK for orders as requested: Oxygen is utilized at 5 LPM at bedtime. Budesonide 160-4.5mcg/actuation 2 puffs daily. Jaci Arroyo MD * Telephone Encounter - Raiza John RN - 10/11/2022 3:24 PM EST Kylie with [facility] calls to request a verbal order for oxygen and budesonide inhaler that patient is on at home. Oxygen is utilized at 5 LPM at bedtime. Budesonide 160-4.5mcg/actuation 2 puffs daily. Noted budesonide in hospital paperwork from 08/27/2022 but order said 2 puffs twice daily. Please review and advise, Raiza John RN documented in this encounterProtestant Hospital03-03-2023 Miscellaneous Notes* Telephone Encounter - Rachel Buckley Ma - 10/05/2022 4:01 PM EST Order, demographic and recent OV notes have been faxed to [facility] at [phone]. Rachel Buckley Ma * Telephone Encounter - Jaci Arroyo MD - 10/05/2022 3:56 PM EST Order printed Jaci Arroyo MD * Telephone Encounter - Rachel Buckley Ma - 10/05/2022 2:[address] Arroyo can you file new order that says [facility] and not [facility] so I can fax to [facility]. Rachel Buckley Ma * Telephone Encounter - Pati Hare LPN - 10/05/2022 2:14 PM EST Patients called and would like the referral sent to [facility]. * Telephone Encounter - Pati Hare LPN - 10/05/2022 2:03 PM EST [facility] calling, they are not able to accept referral for the Pt, OT, and Speech Therapy. They do not accept his insurance. documented in this encounterProtestant Hospital03-03-2023 Miscellaneous Notes* Telephone Encounter - Jaci Arroyo MD - 10/05/2022 3:35 PM EST Noted; see other phone note Jaci Arroyo MD * Telephone Encounter - Loida Vazquez LPN - 10/05/2022 2:53 PM EST Jada from [facility] calling to notify PCP that patient needs to find a new home healthagency. Patient has fired all of the clinicians that have been sent to the home, and also 2 Speech Therapists. is very difficult to schedule times for them to go to the home. documented in this encounterProtestant Hospital03-02-2023 Miscellaneous Notes* Telephone Encounter - Monica Cruz Ma - 10/04/2022 12:23 PM EST Order faxed, along with OV note, med list, demo. Monica Cruz Ma * Telephone Encounter - Jaci Arroyo MD - 10/04/2022 11:56 AM EST Order done for home care Jaci Arroyo MD * Telephone Encounter - Milan Brunson RN - 10/04/2022 9:08 AM EST Eli, , reports she is not happy with [facility]. Reports she has had nothing but issues with them and patient has not had ST for 2.5 months. Asking if pcp would send order for [facility]. Reportspatient had them before and they were wonderful. does not know phone or fax number. Found in previous encounter, fax # [phone]. Please advise . also reports patient was in a group home recently for respite care while was there for rehab. documented in this encounterProtestant Hospital02-28-2023 Miscellaneous Notes* Telephone Encounter - Laura Fajardo RN - 10/02/2022 8:15 AM EST Spoke with pt's spouse. Notified of test results. She voices understanding and is agreeable to notify pt. Laura Fajardo RN * Telephone Encounter - Eliana Olvera LPN - 10/02/2022 8:11 AM EST Left message for to call [facility] for test results. [facility] phone number provided. Eliana Olvera LPN * Telephone Encounter - Eliana Olvera LPN - 10/02/2022 7:57 AM EST ----- Message from Anushka Thomas APRN.CNP sent at 10/02/2022 7:52 AM EST ----- Please call the patient and report lab results revealed renal function and electrolytes are all within normal limits. Anushka Thomas APRN.ESTELLA documented in this encounterProtestant Hospital02-24-2023 Miscellaneous Notes* Telephone Encounter - Kylie Downey RN - 09/28/2022 2:31 PM EST Patient's notified of results and provider's instructions. verbalizes understanding. Kylie Downey RN * Addendum Note - Anushka Thomas APRN.CNP - 09/28/2022 2:11 PM ESTAddended by: ANUSHKA THOMAS on: 09/28/2022 02:11 PM Modules accepted: Orders * Telephone Encounter - Anushka Thomas APRN.CNP - 09/28/2022 2:09 PM EST Reviewed BMP from yesterday. Creatinine slightly elevated since starting Losartan. Potassium remains within normal level. Would recommend repeat BMP in 1-2 weeks to confirm stability. Anushka Thomas APRN.CNP * Telephone Encounter - Gaye Rowley RN - 09/28/2022 1:13 PM EST Eli calling for result of Pt lab work drawn yesterday. requesting a return call today. Thank you! Gaye Rowley RN documented in this encounterProtestant Hospital02-14-2023 Miscellaneous Notes* Telephone Encounter - Jaci Arroyo MD - 09/18/2022 9:35 AM EST Noted Jaci Arroyo MD * Telephone Encounter - Dixie Naranjo RN - 09/17/2022 4:53 PM EST Tanvi @ [facility] Home Care calling to let PCP know patient was due to have BMP drawn this week by homehealth but he is in respite care due to had surgery. Tanvi says was not willing to say where patient is or when he'll be home for [facility] to resume care. Dixie Naranjo RN documented in this encounterProtestant Hospital02-13-2023 Miscellaneous Notes* Telephone Encounter - Kia Waters LPN - 09/17/2022 12:26 PM EST Called Eli. Verified name and date of . Informed order given to Jocelyn at [facility] of order. Patient admitted there Saturday with his to transitional care. Patient informed I did talk with her and informed of order on 09/12/2022 and that she had me give message to a coworker at facility who knows her. Eli states she had surgery on 09/11/2022 so perhaps so. Eli is happy to have order situated. Eli did ask if repeat urine test done after completing antibiotic. Informed and educated that tests are not typically redone unless symptomatic. With patient being nonverbal we discussed smell of urine, cloudiness, color. Did educate about using antibiotics often and causing resistance. Eli verbalizes understanding. * Telephone Encounter - Kia Waters LPN - 09/17/2022 12:24 PM EST Called [facility], spoke with nurse manager heart failure, Jocelyn and informed of order. States patients told her he was to be on antibiotic but Jocelyn needed a order. Per Jocelyn they will get medication from their pharmacy. Kia Waters LPN * Telephone Encounter - Crystal Granado RN - 09/17/2022 11:45 AM EST Patient's calling for results of urine culture. Advised patient per telephone encounter from 2/3 culture was positive and Keflex was sent to [facility]. states she was never informed of results. She further states that both herself and patient are at [facility] and is asking that prescription be transferred to [facility]. Requesting phone call once Rx has been transferred. documented in this encounterProtestant Hospital02-09-2023 Miscellaneous Notes* Telephone Encounter - Loida Vazquez LPN - 09/13/2022 10:58 AM EST Charla from [facility] in [place] calling patient son is trying to get patient placed quickly tonight, is currently in another facility for rehab after knee replacement surgery. Requesting copy of last office notes, medication list, and face sheet be faxed to [phone]. Printed items requested and faxed. documented in this encounterProtestant Hospital02-06-2023 Miscellaneous Notes* Telephone Encounter - Jaci Arroyo MD - 09/10/2022 5:03 PM EST OK to refill as ordered Jaci Arroyo MD * Telephone Encounter - Jayde Laughlin RN - 09/10/2022 4:08 PM EST Patient's Eli calls and states that she is having surgery tomorrow. Patient's physical therapy, occupational therapy, and speech therapy is on hold while she is recovering. prison is still coming out 1 time a week. Jayde Laughlin RN documented in this encounterProtestant Hospital02-03-2023 History of Present illness Narrative* Jaci Arroyo MD - 09/07/2022 3:20 PM EST Chief Complaint Patient presents with: Follow Up HPI:This Team Access Model visit is a phone encounter. It required patient- provider interaction forthe medical decision making as documented below. Patient was offered a virtual/telemedicine appointment in lieu of an office visit due to recommendations to reduce patient exposure to COVID-19. Patient is aware of limitations of performing the visit without a face to face visit in the office setting and agrees. Pt and , Eli completing a phone visit today for a routine follow up. Uro - Followed up recently with [facility] for UTI and Balanitis. Current UTI being treatedwith Ampicillin 500 mg x 7 days, with post treatment Cx on 09/07/22. Has been referred to Dr. Ashley for possible circumcision due to balanitis. Currently being treated with Lotrisone cream, has for quite some time. Pt was referred by this office. Pt seen at [facility] ED due to sob and cough. Pt admitted from 08/16/22 to 08/20/22. declined hospitalfollow up, stated he was improved and would wait till today's appt. He continues to participate in PT and ST and is continuing to show improvements in both areas. Anxiety: stable on current meds; uses ativan tid as needed. Past medical history, appointments, medications, allergies reviewed. Previous Medical History PAST MEDICAL HISTORY Diagnosis Date Acute cerebral infarction (HCC) left Aneurysm (HCC) Atrial fibrillation (HCC) 11/2016 Balanitis CAD (coronary artery disease) Carotid stenosis Dysphasia Hyperglycemia Hypertension PVD (peripheral vascular disease) (HCC) Respiratory failure (HCC) hypoxic-ventilator dependent Stroke (cerebrum) (HCC) Tobacco abuse Previous Surgical History PAST SURGICAL HISTORY Procedure Laterality Date CABG (5) VENOUS GRAFTS & ARTERIAL GRAFT(S) 10/30/2016 CABG CONSULT 10/30/2016 multi vessel HEART CATHETERIZATION 09/17/2016 TRACHEOSTOMY HX Family History FAMILY HISTORY Problem Relation Age of Onset Heart Mother CO in her 70s, pacemaker Diabetes Mother Stroke Father other (AAA) Father other (CAD) Brother Hypertension Brother Patient Allergies ALLERGIES Allergen Reactions Sulfate Salt Hives Zpak [Azithromycin] Hives Lisinopril Swelling Lip swelling after starting lisinopril. Current Medications Current Outpatient Medications on File Prior to Visit Medication Sig miconazole (MONISTAT-DERM,LANCE) 2 % cream Apply to affected area twice daily. ampicillin (PRINCIPEN) 500 mg capsule Take 1 capsule by mouth three times daily for 7 days. traZODone (DESYREL) 100 mg tablet Take 1 tablet by mouth daily at bedtime. LORazepam (ATIVAN) 0.5 mg Take 1 tablet by mouth three times daily as needed for up to 90 days. baclofen (LIORESAL) 10 mg tablet Take 0.5 tablets by mouth three times daily. busPIRone (BUSPAR) 10 mg tablet Take 1 tablet by mouth three times daily. potassium chloride (K-TAB) 10 mEq tablet Take 2 tablets by mouth three times daily. albuterol (PROVENTIL) 2.5 mg /3 mL (0.083 %) nebulizer solution Use 3 mL via nebulizer every 4 hours as needed for wheezing/shortness of breath. Use over 5-15minutes. multivitamin tablet Take 1 tablet by mouth once daily. amiodarone (PACERONE) 100 mg tablet Take 1 tablet by mouth once daily. Do not take if heart rate isless than 40 amLODIPine (NORVASC) 10 mg tablet Take 1/2 tablet twice daily atorvastatin (LIPITOR) 40 mg tablet Take 1 tablet by mouth once daily. clopidogrel (PLAVIX) 75 mg tablet Take 1 tablet by mouth once daily. apixaban (ELIQUIS) 5 mg tab(s) TAKE ONE (1) TABLET BY MOUTH TWICE DAILY escitalopram oxalate (LEXAPRO) 20 mg tablet Take 1 tablet by mouth once daily. famotidine (PEPCID) 20 mg tablet Take 1 tablet by mouth at bedtime as needed. ezetimibe (ZETIA) 10 mg tablet Take 1 tablet by mouth once daily. clotrimazole-betamethasone (LOTRISONE) cream Apply to affected area twice daily. (Patient not taking: Reported on 08/21/2022) polyethylene glycol 3350 (MIRALAX, GLYCOLAX) 17 gram/dose powder Use as directed for Miralax / Gatorade Bowel Prep Kit (Patient not taking: Reported on 08/21/2022) Gatorade Sports Drink Use as directed for Miralax / Gatorade Bowel Prep Kit (Patient not taking: Reported on 08/21/2022) Bisacodyl (DULCOLAX) 5 mg tab Use as directed for Miralax / Gatorade Bowel Prep Kit hydroCHLOROthiazide (HYDRODIURIL, ESIDRIX) 12.5 mg tablet Take 1 tablet by mouth once daily. fluticasone (FLONASE) 50 mcg/actuation nasal spray Use 1 [place] in each nostril twice daily. Rinse mouth after use. albuterol HFA (PROVENTIL HFA, VENTOLIN HFA) 90 mcg/actuation inhaler Inhale 2 Puffs as instructed every 4 hours as needed for Wheezing/Shortness of Breath. metoprolol tartrate, short acting, (LOPRESSOR) 25 mg tablet Take 0.5 tablets by mouth twice daily. COMPOUNDED PRESCRIPTION Right arm wedge. Disp #1. Use as directed to keep right arm elevated. Blood Pressure Monitor kit 1 application twice daily. Measure patient for correct size. Patient needs cuff for left arm readings. COMPOUNDED PRESCRIPTION Articulating AFO foot brace for right leg. Send to [employer]. Dx: I63.9 COMPOUNDED PRESCRIPTION EMBER WALKER DX I63.9 weight 162 # Diaper,Brief, Adult,Disposable (DEPEND REAL FIT BRIEF MEN L/XL) misc 1 Each as needed. Blood Pressure Monitor kit 1 Kit once daily. Please measure patient for correct size. No current facility-administered medications on file prior to visit. Social History Social History Tobacco Use Smoking status: Former Years: 45.00 Types: Cigarettes Quit date: 07/08/2016 Years since quittin.1 Smokeless tobacco: Never Tobacco comments: 07/08/2016 Vaping Use Vaping Use: Never used Substance Use Topics Alcohol use: No Drug use: Never EXAM: There were no vitals taken for this visit. Phone visit Health Maintenance List ABDOMINAL AORTIC ANEURYSM SCREENING Never done PNEUMOCOCCAL: 65+(1 - PCV) Never done SPIROMETRY Never done HEPATITIS C SCREENING Never done DTAP,TDAP,TD(1 - Tdap) Never done ALPHA-1 ANTITRYPSIN DEFICIENCY SCREENING Never done SHINGRIX VACCINE(1 of 2) Never done PROSTATE CANCER SCREENING DISCUSSION due on 06/03/2015 ADVANCE DIRECTIVE DISCUSSION Never done DEPRESSION ASSESSMENT Never done COLORECTAL CANCER SCREENING due on 09/11/2022 LDL CHOLESTEROL due on 10/02/2022 ANNUAL PCP TEAM CHRONIC DISEASE VISIT due on 07/04/2023 BP CONTROLLED (<130/80) due on 08/21/2023 DIABETES SCREEN due on 03/19/2025 LIPID SCREEN due on 10/02/2026 INFLUENZA Completed COVID-19 VACCINE Completed Data reviewed none ASSESSMENT/PLAN: 1. Aphasia as late effect of cerebrovascular accident - ICD9: 438.11, ICD10: I69.320 (primary diagnosis) Continue ST 2. Chronic insomnia - ICD9: 780.52, ICD10: F51.04 Continue current medications 3. Right hemiplegia (HCC) - ICD9: 342.90, ICD10: G81.91 Continue PT 4. Paroxysmal atrial fibrillation (HCC) - ICD9: 427.31, ICD10: I48.0 Continue current medications. Follow with Cardiology 5. Essential hypertension - ICD9: 401.9, ICD10: I10 - good control - Continue current medication(s) - Recommended regular aerobic exercise. - Recommend home blood pressure monitoring, to bring results in on next visit - Goal of BP <140/90 6. Anxiety - ICD9: 300.00, ICD10: F41.9 Continue current medications. Follow up in 3 months 11-20 minutes of time spent on phone call Jaci Arroyo MD documented in this encounterProtestant Hospital02-03-2023 Miscellaneous Notes* Telephone Encounter - Katelynn Reyez RN - 09/07/2022 9:06 AM EST Spoke to . Voices understanding. States she will try to make arrangements for Afshin to come in in 2 weeks for BMP. Katelynn Reyez RN * Telephone Encounter - Eliana Green APRN.CNP - 09/07/2022 7:20 AM EST Blood pressures are acceptable. Improved from 150 systolic reading in office with Dr. Johansen last week. Continue current medication regimen. Please remind the patient he should have a follow-up BMP drawn since 25 mg of losartan was added at last office visit kidney function and potassium should berechecked. He has an order pending. Thank you! Eliana Green APRN.ESTELLA * Telephone Encounter - Katelynn Reyez RN - 09/06/2022 3:44 PM EST calling in with the following b/p results: 09/03/22: 140/73 p. 62 09/04/22 125/64 p. 47 09/05/22 136/73 p. 52 09/06/22 145/64 p. 56 Please review and advise. Thank you Katelynn Reyez RN documented in this encounterProtestant Hospital02-02-2023 Miscellaneous Notes* Telephone Encounter - Camila Weaver RN - 09/06/2022 8:49 AM EST Received a call from home health nurse who wanted Dr. Johansen to be aware of the interaction between potassium and Losartan. Patient seen by Dr. Johansen on 09/03/22. Ordered BMP, left message on spouse's voicemail indicating the order for the BMP. Office phone number provided. Camila Weaver RN documented in this encounterProtestant Hospital01-31-2023 Miscellaneous Notes* Telephone Encounter - Katelynn Reyez RN - 09/04/2022 10:24 AM EST Pt. scheduled with Dr. Dailey on 12/13/22. Pt. notified. Katelynn Reyez RN * Telephone Encounter - Christina Ozuna MA - 09/03/2022 3:52 PM EST Per neurology consult order needs to be filed as active order/normal instead of future to be able to link order to appointment. Original order is placed as neurology cerebrovascular. Dr. Aj is nota part of the cerebrovascular center. Patient needs to be rescheduled with cerbrovascular. Closest is AG: Dr. Dailey. Pended order. Christina Ozuna MA documented in this encounterProtestant Hospital01-30-2023 Miscellaneous Notes* Addendum Note - Robin Johansen MD - 09/03/2022 12:41 PM ESTAddended by: ROBIN JOAHNSEN on: 09/03/2022 12:41 PM Modules accepted: Orders documented in this encounterProtestant Hospital01-30-2023 Instructions* Patient Instructions* Robin Johansen MD - 09/03/2022 11:26 AM EST We are starting on a new medication Losartan 25 mg once per day Repeat blood work in 2 weeks documented in this encounterProtestant Hospital01-30-2023 History of Present illness Narrative* Robin Johansen MD - 09/03/2022 11:00 AM EST Images from the original note were not included. [facility] SECTION OF REGIONAL CARDIOLOGY Cardiology ([facility]) [address] [id number] OUTPATIENT VISIT DATE 09/03/2022 PRIMARY CARE PHYSICIAN: Jaci Arroyo [address] [place] [address] HISTORY OF PRESENT ILLNESS: Mr. Zee is a 67 year old gentleman with a history of coronary artery disease and prior coronary artery bypass grafting in October 2016 complicated by left hemispheric CVA. He has resulting weakness that is right-sided and dysphasia. He was accompanied to the office visit by his . His reports that he has been having issues with blood pressure management. He was admitted to the hospital afew months ago with a COPD exacerbation. Has had difficulties with his blood pressure since that hospital admission. He is compliant with his medications. He denies symptoms of chest pain or pressure. His activity level is limited by his right-sided weakness. He denies symptoms of palpitations or he art racing. He has not had symptoms concerning for including PND, orthopnea, lower extremity edema. 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 Kimbrough on 10/30/2016. SECONDARY PROCEDURES PERFORMED: 1. Cerebral angiography and stenting of the left subclavian artery performed by Dr. West on 11/02/2016. 2. Tracheostomy performed by Dr. Delgado on 11/07/2016. 3. Fluoroscopically guided placement of gastrostomy tube into the stomach performed on 11/07/2016. PAST MEDICAL HISTORY Diagnosis Date Acute cerebral infarction (HCC) left Aneurysm (HCC) Atrial fibrillation (HCC) 11/2016 Balanitis CAD (coronary artery disease) Carotid stenosis Dysphasia Hyperglycemia Hypertension PVD (peripheral vascular disease) (HCC) Respiratory failure (HCC) hypoxic-ventilator dependent Stroke (cerebrum) (HCC) Tobacco abuse PAST SURGICAL HISTORY Procedure Laterality Date CABG (5) VENOUS GRAFTS & ARTERIAL GRAFT(S) 10/30/2016 CABG CONSULT 10/30/2016 multi vessel HEART CATHETERIZATION 09/17/2016 TRACHEOSTOMY HX SOCIAL HISTORY Social History Tobacco Use Smoking status: Former Years: 45.00 Types: Cigarettes Quit date: 07/08/2016 Years since quittin.1 Smokeless tobacco: Never Tobacco comments: 07/08/2016 Vaping Use Vaping Use: Never used Substance Use Topics Alcohol use: No Drug use: Never FAMILY HISTORY Problem Relation Age of Onset Heart Mother [place] in her 70s, pacemaker Diabetes Mother Stroke Father other (AAA) Father other (CAD) Brother Hypertension Brother ALLERGIES: ALLERGIES Allergen Reactions Sulfate Salt Hives Zpak [Azithromycin] Hives Lisinopril Swelling Lip swelling after starting lisinopril. MEDICATIONS: miconazole (MONISTAT-DERM,LANCE) 2 % cream Apply to affected area twice daily. traZODone (DESYREL) 100 mg tablet Take 1 tablet by mouth daily at bedtime. LORazepam (ATIVAN) 0.5 mg Take 1 tablet by mouth three times daily as needed for up to 90 days. baclofen (LIORESAL) 10 mg tablet Take 0.5 tablets by mouth three times daily. busPIRone (BUSPAR) 10 mg tablet Take 1 tablet by mouth three times daily. potassium chloride (K-TAB) 10 mEq tablet Take 2 tablets by mouth three times daily. albuterol (PROVENTIL) 2.5 mg /3 mL (0.083 %) nebulizer solution Use 3 mL via nebulizer every 4 hours as needed for wheezing/shortness of breath. Use over 5-15minutes. multivitamin tablet Take 1 tablet by mouth once daily. amiodarone (PACERONE) 100 mg tablet Take 1 tablet by mouth once daily. Do not take if heart rate isless than 40 amLODIPine (NORVASC) 10 mg tablet Take 1/2 tablet twice daily atorvastatin (LIPITOR) 40 mg tablet Take 1 tablet by mouth once daily. clopidogrel (PLAVIX) 75 mg tablet Take 1 tablet by mouth once daily. apixaban (ELIQUIS) 5 mg tab(s) TAKE ONE (1) TABLET BY MOUTH TWICE DAILY escitalopram oxalate (LEXAPRO) 20 mg tablet Take 1 tablet by mouth once daily. famotidine (PEPCID) 20 mg tablet Take 1 tablet by mouth at bedtime as needed. ezetimibe (ZETIA) 10 mg tablet Take 1 tablet by mouth once daily. hydroCHLOROthiazide (HYDRODIURIL, ESIDRIX) 12.5 mg tablet Take 1 tablet by mouth once daily. fluticasone (FLONASE) 50 mcg/actuation nasal spray Use 1 [place] in each nostril twice daily. Rinse mouth after use. albuterol HFA (PROVENTIL HFA, VENTOLIN HFA) 90 mcg/actuation inhaler Inhale 2 Puffs as instructed every 4 hours as needed for Wheezing/Shortness of Breath. metoprolol tartrate, short acting, (LOPRESSOR) 25 mg tablet Take 0.5 tablets by mouth twice daily. (Patient taking differently: Take 12.5 mg by mouth twice daily. Hold if heart rate is less than 60) Blood Pressure Monitor kit 1 application twice daily. Measure patient for correct size. Patient needs cuff for left arm readings. COMPOUNDED PRESCRIPTION Articulating AFO foot brace for right leg. Send to [employer]. Dx: I63.9 COMPOUNDED PRESCRIPTION EMBER WALKER DX I63.9 weight 162 # Diaper,Brief, Adult,Disposable (DEPEND REAL FIT BRIEF MEN L/XL) misc 1 Each as needed. Blood Pressure Monitor kit 1 Kit once daily. Please measure patient for correct size. clotrimazole-betamethasone (LOTRISONE) cream Apply to affected area twice daily. (Patient not taking: No sig reported) polyethylene glycol 3350 (MIRALAX, GLYCOLAX) 17 gram/dose powder Use as directed for Miralax / Gatorade Bowel Prep Kit (Patient not taking: No sig reported) Gatorade Sports Drink Use as directed for Miralax / Gatorade Bowel Prep Kit (Patient not taking: [place] reported) Bisacodyl (DULCOLAX) 5 mg tab Use as directed for Miralax / Gatorade Bowel Prep Kit (Patient not taking: Reported on 09/03/2022) COMPOUNDED PRESCRIPTION Right arm wedge. Disp #1. Use as directed to keep right arm elevated. (Patient not taking: Reported on 09/03/2022) REVIEW OF SYSTEMS: Difficult to obtain PHYSICAL EXAMINATION: BP 150/74 (BP Site: Left Arm, BP Position: Sitting, BP Cuff Size: Regular Adult) Pulse (!) 58 Resp 16 Ht 177.8 cm (5' 10) Wt 88 kg (194 lb) SpO2 96% BMI 27.84 kg/m General: Pleasant gentleman sitting appears comfortable and in no apparent distress. He is able to respond appropriately to questions with yes and no answers. HEENT: Carotid upstrokes are brisk on the right. No carotid upstroke noted on the left. No JVD. Pulmonary: Diminished breath sounds noted throughout. No rales, wheezes, rhonchi Cardiovascular: Normal S1, S2 with regular rate and rhythm. No murmurs, rubs, or gallops Extremities: Warm, well-perfused, immobility noted in his right upper and lower extremity. No lowerextremity edema. CARDIOVASCULAR MEDICINE TESTING: ECG in the office 04/03/2021: Sinus bradycardia with first-degree AV block. Left axis deviation. Inferior infarct with Q waves in II, III and aVF. Nonspecific diffuse ST-T wave changes Echocardiogram [facility] 12/16/2020: Left ventricular systolic function is normal Estimated ejection fraction is 60%. Left atrium is mildly enlarged Mild-moderate (1-2+) mitral valve insufficiency Mild tricuspid valve insufficiency Trivial pulmonic valve insufficiency Right ventricular systolic pressure estimated to be 30 mmHg No evidence of diastolic dysfunction IMPRESSION: Mr. Zee is a 67 year old gentleman with a history of multivessel coronary artery disease and coronary bypass grafting in October 2016 (WAKEFIELD-LAD, SVG-D1, - OM, -PDA, -AM of RCA), complicated by left MCA stroke. He is also treated for paroxysmal atrial fibrillation, hypertension and dyslipidemia. He has a prior significant smoking history and quit at the time of his coronary bypass grafting. He presents to the office for routine follow-up PLAN AND RECOMMENDATIONS: 1. Coronary artery disease involving [place] coronary artery of [place] heart without angina pectoris- ICD9: 414.01, ICD10: I25.10 (primary diagnosis) Well without symptoms concerning for angina. Continue current medical therapy and risk factor modification 2. Essential hypertension - ICD9: 401.9, ICD10: I10 Add losartan 25 mg daily. Discussed the risk of developing angioedema. Patient has difficulties to consider central acting agent. - BASIC METABOLIC PNL 3. Hyperlipidemia, unspecified hyperlipidemia type - ICD9: 272.4, ICD10: E78.5 Maintained on Lipitor 40 mg daily. Last fasting blood work was within September 2021. 4. Occlusion of left carotid artery - ICD9: 433.10, ICD10: I65.22 Robin Joahnsen MD documented in this encounterProtestant Hospital01-26-2023 Miscellaneous Notes* Telephone Encounter - Rachel Buckley Ma - 08/30/2022 3:01 PM EST Call to pt's Eli and notified her of below. Verbalized understanding. Rachel Buckley Ma * Telephone Encounter - Jaci Arroyo MD - 08/30/2022 2:42 PM EST I would suggest increasing the metoprolol, which is listed as 0.5 of 25 mg tablet twice daily, to one full pill twice daily. Jaci Arroyo MD.me * Telephone Encounter - Dixie Naranjo RN - 08/30/2022 2:07 PM EST See TE on 08/29/22 regarding elevated BP. Patient's calling today to say she checked patient'sBP two hours after he took his morning BP medications. It was 150/40. She checked it again and it was still reading 150/40 so she gave him two more HCTZ 12.5 mg tablets in addition to the morning dose. She says his BP remains the same. She is asking for PCP recommendation. She says patient is scheduled to see Dr. Johansen, Cardiology on Sunday 09/03. Dixie Naranjo RN documented in this encounterProtestant Hospital01-25-2023 Miscellaneous Notes* Telephone Encounter - Jessie Harmon APRN.CNP - 08/29/2022 3:08 PM EST Noted, thank you. Jessie Harmon APRN.ESTELLA * Telephone Encounter - Khris Gutierrez RN - 08/29/2022 2:58 PM EST Pts called and is notified of providers message and instructions. She voices understanding.Shestates earlier he hadn't taken his medication at the same time he usually does instead of 8 am he took it at 10 am and she hadn't given it time to work. She reports his BP is now 136/68. She states she will start recording them. Khris Gutierrez RN * Telephone Encounter - Jessie Harmon APRN.CNP - 08/29/2022 1:07 PM EST Can you please call the patient and and let them know that I would recommend monitoring blood pressure 1-2 times per day for the next 3 to 5 days. They can call these readings into the office. Ensure that he is nice and relaxed and legs are not crossed. If the blood pressure is elevated he can take 2 of his hydrochlorothiazide (12.5 mg, water pill) 25 mg daily. If blood pressure is still elevated after taking additional medication we may need to consider additional changes. Please let me know if they have any other questions. Thank you Jessie Harmon APRN.OPERATIONS LABEL CLERK * Telephone Encounter - Jayde Laughlin RN - 08/29/2022 12:41 PM EST Patient's calls and states that patient's blood pressure today is 149/67, Pulse 74, O2 96. Patient is asymptomatic. asking if she should be concerned about blood pressure? Please review and advise, Jayde Laughlin RN documented in this encounterProtestant Hospital01-19-2023 Miscellaneous Notes* Telephone Encounter - Lacy Kaur - 08/23/2022 8:16 AM EST Left vm pt needs an appt with Dr. Ashley for circ consultation. Ref by Varinder Ambriz. Radha documented in this encounterProtestant Hospital01-17-2023 Instructions* Patient Instructions* Desmond Ambriz PA-C - 08/21/2022 3:46 PM EST Urine Culture on 08-18-2022 [facility] Proteus mirabilis [place] Count 80,000-100,000 Proteus mirabilis: REACTION Ampicillin Islt KATARINA <=2 S Ampicillin+Sulbac Islt KATARINA <=2 S ceFAZolin Islt KATARINA <=4 S Cefepime Islt KATARINA <=0.12 S cefTRIAXone Islt KATARINA <=0.25 S Ciprofloxacin Islt KATARINA <=0.25 S Ertapenem Islt KATARINA <=0.12 S Gentamicin Islt KATARINA <=1 S levoFLOXacin Islt KATARINA <=0.12 S Nitrofurantoin Islt KATARINA 128 R Pip+Tazo Islt KATARINA <=4 S Tobramycin Islt KATARINA <=1 S TMP SMX Islt KATARINA <=20 S documented in this encounterProtestant Hospital01-17-2023 History of Present illness Narrative* Desmond Ambriz PA-C - 08/21/2022 3:15 PM EST Images from the original note were not included. [facility] NEW CONSULT PATIENT CLINIC NOTE SERVICE DATE: 08/21/2022 SERVICE TIME: 3:15 PM NAME: Afshin Zee Consultation requested by Jaci Arroyo MD for an opinion regarding UTI and Balanitis My final recommendations communicated back to the requesting physician by way of our shared Medicalrecord. CHIEF COMPLAINT: UTI and Balanitis HISTORY OF PRESENT ILLNESS: Afshin Zee is a 67 year old male with PMH including CVA and A-Fib presenting with follow up from recent hospital admission at [facility] The patient reports he was found to have UTI with Proteus, no treatment so far, he will start Ampicillin 500 mg and will get a post-treatment urine culture Sep 07 He also has long standing Balanitis and will continue using Lotrisone Cream topically, I will get him a Consult for possible Circumcision with Dr. Michel at [place]. LUTS: DYSURIA: yes URGENCY: Yes FREQUENCY:6 per day NOCTURIA: 2 per night STRAINING TO VOID: No EMPTIES COMPLETELY: Yes UTI: 1 past 12 months GROSS HEMATURIA: no UA DIPSTICK POSITIVE ONLY: yes Other symptoms: LABS: No results found for: TESTOST No results found for: TESTFREE No results found for: PSA Hematocrit (%) Date Value 10/02/2021 39.8 02/01/2021 45.4 01/06/2019 42.3 12/03/2017 38.3 No results found for: PSA Creatinine Date Value Ref Range Status 03/19/2022 1.11 0.73 - 1.22 mg/dL Final 10/02/2021 1.07 0.73 - 1.22 mg/dL Final 02/01/2021 1.10 0.73 - 1.22 mg/dL Final 07/20/2019 1.07 0.73 - 1.22 mg/dL Final MEDICATIONS: miconazole (MONISTAT-DERM,LANCE) 2 % cream Apply to affected area twice daily. traZODone (DESYREL) 100 mg tablet Take 1 tablet by mouth daily at bedtime. LORazepam (ATIVAN) 0.5 mg Take 1 tablet by mouth three times daily as needed for up to 90 days. baclofen (LIORESAL) 10 mg tablet Take 0.5 tablets by mouth three times daily. busPIRone (BUSPAR) 10 mg tablet Take 1 tablet by mouth three times daily. potassium chloride (K-TAB) 10 mEq tablet Take 2 tablets by mouth three times daily. albuterol (PROVENTIL) 2.5 mg /3 mL (0.083 %) nebulizer solution Use 3 mL via nebulizer every 4 hours as needed for wheezing/shortness of breath. Use over 5-15minutes. multivitamin tablet Take 1 tablet by mouth once daily. amiodarone (PACERONE) 100 mg tablet Take 1 tablet by mouth once daily. Do not take if heart rate isless than 40 amLODIPine (NORVASC) 10 mg tablet Take 1/2 tablet twice daily atorvastatin (LIPITOR) 40 mg tablet Take 1 tablet by mouth once daily. clopidogrel (PLAVIX) 75 mg tablet Take 1 tablet by mouth once daily. apixaban (ELIQUIS) 5 mg tab(s) TAKE ONE (1) TABLET BY MOUTH TWICE DAILY escitalopram oxalate (LEXAPRO) 20 mg tablet Take 1 tablet by mouth once daily. famotidine (PEPCID) 20 mg tablet Take 1 tablet by mouth at bedtime as needed. ezetimibe (ZETIA) 10 mg tablet Take 1 tablet by mouth once daily. Bisacodyl (DULCOLAX) 5 mg tab Use as directed for Miralax / Gatorade Bowel Prep Kit hydroCHLOROthiazide (HYDRODIURIL, ESIDRIX) 12.5 mg tablet Take 1 tablet by mouth once daily. fluticasone (FLONASE) 50 mcg/actuation nasal spray Use 1 [place] in each nostril twice daily. Rinse mouth after use. albuterol HFA (PROVENTIL HFA, VENTOLIN HFA) 90 mcg/actuation inhaler Inhale 2 Puffs as instructed every 4 hours as needed for Wheezing/Shortness of Breath. metoprolol tartrate, short acting, (LOPRESSOR) 25 mg tablet Take 0.5 tablets by mouth twice daily. COMPOUNDED PRESCRIPTION Right arm wedge. Disp #1. Use as directed to keep right arm elevated. Blood Pressure Monitor kit 1 application twice daily. Measure patient for correct size. Patient needs cuff for left arm readings. COMPOUNDED PRESCRIPTION Articulating AFO foot brace for right leg. Send to [employer]. Dx: I63.9 COMPOUNDED PRESCRIPTION EMBER WALKER DX I63.9 weight 162 # Diaper,Brief, Adult,Disposable (DEPEND REAL FIT BRIEF MEN L/XL) misc 1 Each as needed. Blood Pressure Monitor kit 1 Kit once daily. Please measure patient for correct size. clotrimazole-betamethasone (LOTRISONE) cream Apply to affected area twice daily. (Patient not taking: Reported on 08/21/2022) polyethylene glycol 3350 (MIRALAX, GLYCOLAX) 17 gram/dose powder Use as directed for Miralax / Gatorade Bowel Prep Kit (Patient not taking: Reported on 08/21/2022) Gatorade Sports Drink Use as directed for Miralax / Gatorade Bowel Prep Kit (Patient not taking: Reported on 08/21/2022) PAST MEDICAL HISTORY: PAST MEDICAL HISTORY Diagnosis Date Acute cerebral infarction (HCC) left Aneurysm (HCC) Atrial fibrillation (HCC) 11/2016 Balanitis CAD (coronary artery disease) Carotid stenosis Dysphasia Hyperglycemia Hypertension PVD (peripheral vascular disease) (HCC) Respiratory failure (HCC) hypoxic-ventilator dependent Stroke (cerebrum) (HCC) Tobacco abuse PAST SURGICAL HISTORY: PAST SURGICAL HISTORY Procedure Laterality Date CABG (5) VENOUS GRAFTS & ARTERIAL GRAFT(S) 10/30/2016 CABG CONSULT 10/30/2016 multi vessel HEART CATHETERIZATION 09/17/2016 TRACHEOSTOMY HX FAMILY HISTORY: FAMILY HISTORY Problem Relation Age of Onset Heart Mother [place] in her 70s, pacemaker Diabetes Mother Stroke Father other (AAA) Father other (CAD) Brother Hypertension Brother SOCIAL HISTORY: Social Connections: Moderately Integrated Frequency of Communication with Friends and Family: Once a week Frequency of Social Gatherings with Friends and Family: Once a week Attends Congregational Services: 1 to 4 times per year Active Member of Clubs or Organizations: Yes Attends Club or Organization Meetings: 1 to 4 times per year Marital Status: REVIEW OF SYSTEMS: GENERAL: No fever, chills, weight loss, or fatigue. ENMT: Negative CARDIOVASCULAR:NO CHEST PAIN, PALPITATIONS, ANKLE EDEMA RESPIRATORY: No chronic cough, wheezing, dyspnea, hemoptysis. GENITOURINARY: SEE HPI MUSCULOSKELETAL:NO CHRONIC BACK PAIN, ARTHRITIS, CHRONIC NECK PAIN SKIN: NO VARICOSE VEINS, RASH, ABNORMAL ITCHING HEME/LYMPH/IMMUNE:Negative for prolonged bleeding, bruising easily or swollen nodes NEUROLOGICAL: NO HEADACHES, NUMBNESS, SEIZURES, STROKE DIABETES: No All other systems reviewed and are negative PHYSICAL EXAMINATION: Blood pressure 122/70, pulse 64, temperature 37.6 C (99.6 F), temperature source Temporal, resp. rate 18, height 177.8 cm (5' 10), weight 88 kg (194 lb), SpO2 95 %. GENERAL: WNL nutrition, no deformities, healthy appearing NEURO: Awake, alert and oriented x 3 and Normal gait PSYCH: No signs of depression, anxiety, or agitation ENMT (Ear, Nose, Mouth, Throat): No masses, adenopathy, icterus. Thyroid nonpalpable RESP: NL effort, no retractions or purse-lip breathing. CV: No extremity swelling, varices, edema, pallor, erythema GASTROINTESTINAL: Soft, nontender, nondistended, no masses. HERNIAS: None SKIN: No rash, lesions No palpable lymphadenopathy MUSCULOSKELETAL: Extremities normal. No deformities, edema, clubbing or skin discoloration. GENITOURINARY: MALE EXAM: Epididymis & testes: normal size, position, without masses Urethra & meatus: normal size & position w erythema and discharge on glans penis Penis: uncircumcised, w/o plaques, lesions, masses, or deformities. PROBLEM LIST REVIEW: Yes LABS: Results for orders placed or performed in visit on 03/19/22 COMP METABOLIC PANEL Result Value Ref Range Protein, Total 7.3 6.3 - 8.0 g/dL Albumin 4.4 3.9 - 4.9 g/dL Calcium, Total 9.6 8.5 - 10.2 mg/dL Bilirubin, Total 0.8 0.2 - 1.3 mg/dL Alkaline Phosphatase 134 (H) 38 - 113 U/L AST 21 14 - 40 U/L ALT 20 10 - 54 U/L Glucose 103 (H) 74 - 99 mg/dL BUN 13 9 - 24 mg/dL Creatinine 1.11 0.73 - 1.22 mg/dL Sodium 142 136 - 144 mmol/L Potassium 4.1 3.7 - 5.1 mmol/L Chloride 104 97 - 105 mmol/L CO2 27 22 - 30 mmol/L Anion Gap 11 9 - 18 mmol/L Estimated Glomerular Filtration Rate 73 >=60 mL/min/1.73m NT PRO BNP Result Value Ref Range NT Pro BNP 244 (H) <125 pg/mL Urine Culture: Proteus below PROCEDURES: IMAGING: IMPRESSION/PLAN: 67 year old male with 1. Acute cystitis without hematuria - ICD9: 595.0, ICD10: N30.00 (primary diagnosis) 2. Balanitis - ICD9: 607.1, ICD10: N48.1 > Continue Lotrisone Cream twice a day > Start Ampicillin 500 mg x 7 days > Post-Treatment Culture on Sep 07, 2022 > Consult with Dr. Ashley for possible Circumcision I spent a total of 30 minutes on the date of the service which included preparing to see the patient, face to face patient care, completing clinical documentation, obtaining and/or reviewing separately obtained history, performing a medically appropriate examination, counseling and educating the pat ient/family/caregiver, ordering medications, tests, or procedures, and care coordination. Desmond Ambriz, NIKHIL, MT, PAAlfaC documented in this encounterProtestant Hospital01-16-2023 Miscellaneous Notes* Telephone Encounter - Monica Cruz Ma - 08/20/2022 8:52 AM EST Eli, pt notified, states pt is schedule to see Urologist Desmond Ambriz tomorrow. Monica Cruz Ma * Telephone Encounter - Loida Vazquez LPN - 08/20/2022 8:[address] [facility] Will have to try another Urology office. documented in this encounterProtestant Hospital01-13-2023 Miscellaneous Notes* Telephone Encounter - Rachel Buckley Ma - 08/17/2022 8:49 AM EST Referral paperwork has been faxed to [phone] La's office. Eli called and notified. Will make sure they take pt's insurance. If not, will switch to [facility] at [facility]. Rachel Buckley Ma * Telephone Encounter - Jaci Arroyo MD - 08/16/2022 4:50 PM EST OK for consult as ordered Jaci Arroyo MD * Telephone Encounter - Milan Brunson RN - 08/16/2022 4:09 PM EST , Eli, reports patient is in [facility] under observation. Reports the doctor on the floor informed , patient should see a urologist, for problem with penis. Reports patient is not circumcised andhas problems with reddness in the area. Reports the cream pcp gave him is not helping. asking pcp to send referral to Dr. La, urologist at [facility]. documented in this encounterProtestant Hospital01-12-2023 Miscellaneous Notes* Telephone Encounter - Mariano Beckman APRN.CNP - 08/16/2022 11:29 AM EST The following approved medication requests have been transmitted electronically. Requested Prescriptions Pending Prescriptions Disp Refills traZODone (DESYREL) 100 mg tablet 30 tablet 11 Sig: Take 1 tablet by mouth daily at bedtime. Mariano Beckman APRN.CNP * Telephone Encounter - Amaya Fry - 08/16/2022 11:18 AM EST Patient has been identified by name and date of : Yes Last office visit in this department: Visit date not found RX INSTRUCTIONS: Patient aware RX will be sent to pharmacy. No need to notify patient. Patient phones requesting refills as follows: Requested Prescriptions Pending Prescriptions Disp Refills traZODone (DESYREL) 100 mg tablet 30 tablet 11 Sig: Take 1 tablet by mouth daily at bedtime. Please review and advise. Amaya Fry documented in this encounterProtestant Hospital01-04-2023 Miscellaneous Notes* Telephone Encounter - Kylie Downey RN - 08/08/2022 2:00 PM EST Spoke to , Eli and notified pt should be done by warehouse picker time of 12:20pm. Verbalized understanding. * Telephone Encounter - Gaye Rowley RN - 08/08/2022 12:28 PM EST Pr calling about appointment on , Pt is getting transportation by provider services. Inquiring as to whether appointment will be over and patient can be picked up by 12:20 p.m? Please contact Pt Eli at [phone] and advise of kyler of appt so she can arrange proper transportation time for patient.Gaye Rowley RN documented in this encounterProtestant Hospital01-03-2023 Miscellaneous Notes* Telephone Encounter - Rachel Buckley Ma - 08/07/2022 4:29 PM EST Call to Casi notified her of message below from PCP. She verbalized understanding. Rachel Buckley Ma * Telephone Encounter - Jaci Arroyo MD - 08/07/2022 4:23 PM EST OK for verbal order for OT due to CVA , right side weakness Jaci Arroyo MD * Telephone Encounter - Therese Paz LPN - 08/07/2022 3:51 PM EST Casi, nursing with [facility] called requesting verbal order for OT due to CVA , right side weakness. She felt this needed to be added. Please advise Casi. Therese Paz LPN documented in this encounterProtestant Hospital12-23-2022 Miscellaneous Notes* Telephone Encounter - Christina Ozuna MA - 07/27/2022 10:06 AM EST Order faxed to [facility]. Christina Ozuna MA * Telephone Encounter - Jaci Arroyo MD - 07/27/2022 9:08 AM EST Rx done Jaci Arroyo MD * Telephone Encounter - Milan Brunson RN - 07/27/2022 8:22 AM EST asking pcp to send order to [facility] today for Incentive Spirometer. She spoke with [facility] and they dohave them. Reports patient was hospitalized 3 x's last year with pneumonia, and wants to prevent this. Wants to pick it up today at 1 pm. Pended but needs diagnoses. documented in this encounterProtestant Hospital12-20-2022 Miscellaneous Notes* Telephone Encounter - Jaci Arroyo MD - 07/24/2022 4:18 PM EST Noted Jaci Arroyo MD * Telephone Encounter - Loida Vazquez LPN - 07/24/2022 2:19 PM EST Funmilayo from [facility] calling to report missed ST appt, patient cancelled appt for todaysaid was not up to appt. documented in this encounterProtestant Hospital12-12-2022 Miscellaneous Notes* Telephone Encounter - Raiza John RN - 07/16/2022 3:[address] with [facility] calls to let provider know that patient was seen for skilled recert into [facility]. Elida reports this to be FYI with no call back needed. Raiza John RN documented in this encounterProtestant Hospital11-30-2022 Instructions* Patient Instructions* Jessie Harmon APRN.CNP - 07/04/2022 6:02 PM EST Increase trazodone to 150 mg at bedtime. Continue physical and speech therapy as ordered. Keep scheduled appointments with pulmonology. Recommend considering consult with sleep medicine if difficulty continues with CPAP fit. Follow-up as needed. documented in this encounterProtestant Hospital11-30-2022 History of Present illness Narrative* Jessie Harmon APRN.CNP - 07/04/2022 2:20 PM EST Chief Complaint Patient presents with: Follow Up This Team Access Model encounter involved medical decision making outside of a scheduled office visit. Patient was offered a virtual/telemedicine appointment in lieu of an office visit due to recommendations to reduce patient exposure to COVID-19. Video was used for evaluation of this patient. Patient agrees to the visit: Yes Patient Location: [facility] Afshin Zee is a 66 year old male who is contacted today for a telephone visit This is an established patient of Dr. Jaci Arroyo MD Reports: Here for follow up. Eli present at this appointment. CVA: History of CVA in the past. Ongoing therapy to help with speech. Last Saw PCP in May. Started PT for leg dragging while ambulating. Refers that they will renewal treatment, he is progressingwell. PT once per week and speech therapy twice weekly. Anxiety: Using Ativan 0.5 mg TID as needed, working well for symptoms of anxiety. Refers that his mood has been well. Currently taking Buspar twice daily. DARON/Difficulty Sleeping: Sleep study revealed low O2, started CPAP last week. Refers that mask was too big. Last night wore smaller mask. Sleep rigo sends readings. Seeing Dr. Mcgrath pulmonology. Next follow up in 1 year. Needs 90 days to try current CPAP mask. Difficulty sleeping with mask. Taking Trazodone 100 mg QHS. Giving additional 12 mg Melatonin. Past medical history, appointments, medications, allergies reviewed 07/04/2022 Previous Medical History PAST MEDICAL HISTORY Diagnosis Date Acute cerebral infarction (HCC) left Aneurysm (HCC) Atrial fibrillation (HCC) 11/2016 CAD (coronary artery disease) Carotid stenosis Dysphasia Hyperglycemia Hypertension PVD (peripheral vascular disease) (HCC) Respiratory failure (HCC) hypoxic-ventilator dependent Stroke (cerebrum) (HCC) Tobacco abuse Previous Surgical History PAST SURGICAL HISTORY Procedure Laterality Date CABG (5) VENOUS GRAFTS & ARTERIAL GRAFT(S) 10/30/2016 CABG CONSULT 10/30/2016 multi vessel HEART CATHETERIZATION 09/17/2016 TRACHEOSTOMY HX Family History FAMILY HISTORY Problem Relation Age of Onset Heart Mother CO in her 70s, pacemaker Diabetes Mother Stroke Father other (AAA) Father other (CAD) Brother Hypertension Brother Patient Allergies ALLERGIES Allergen Reactions Sulfate Salt Hives Zpak [Azithromycin] Hives Lisinopril Swelling Lip swelling after starting lisinopril. Current Medications Current Outpatient Medications on File Prior to Visit Medication Sig LORazepam (ATIVAN) 0.5 mg Take 1 tablet by mouth three times daily as needed for up to 90 days. baclofen (LIORESAL) 10 mg tablet Take 0.5 tablets by mouth three times daily. busPIRone (BUSPAR) 10 mg tablet Take 1 tablet by mouth three times daily. potassium chloride (K-TAB) 10 mEq tablet Take 2 tablets by mouth three times daily. albuterol (PROVENTIL) 2.5 mg /3 mL (0.083 %) nebulizer solution Use 3 mL via nebulizer every 4 hours as needed for wheezing/shortness of breath. Use over 5-15minutes. multivitamin tablet Take 1 tablet by mouth once daily. amiodarone (PACERONE) 100 mg tablet Take 1 tablet by mouth once daily. Do not take if heart rate isless than 40 amLODIPine (NORVASC) 10 mg tablet Take 1/2 tablet twice daily atorvastatin (LIPITOR) 40 mg tablet Take 1 tablet by mouth once daily. clopidogrel (PLAVIX) 75 mg tablet Take 1 tablet by mouth once daily. apixaban (ELIQUIS) 5 mg tab(s) TAKE ONE (1) TABLET BY MOUTH TWICE DAILY escitalopram oxalate (LEXAPRO) 20 mg tablet Take 1 tablet by mouth once daily. famotidine (PEPCID) 20 mg tablet Take 1 tablet by mouth at bedtime as needed. ezetimibe (ZETIA) 10 mg tablet Take 1 tablet by mouth once daily. clotrimazole-betamethasone (LOTRISONE) cream Apply to affected area twice daily. polyethylene glycol 3350 (MIRALAX, GLYCOLAX) 17 gram/dose powder Use as directed for Miralax / Gatorade Bowel Prep Kit Gatorade Sports Drink Use as directed for Miralax / Gatorade Bowel Prep Kit Bisacodyl (DULCOLAX) 5 mg tab Use as directed for Miralax / Gatorade Bowel Prep Kit hydroCHLOROthiazide (HYDRODIURIL, ESIDRIX) 12.5 mg tablet Take 1 tablet by mouth once daily. traZODone (DESYREL) 100 mg tablet Take 1 tablet by mouth daily at bedtime. fluticasone (FLONASE) 50 mcg/actuation nasal spray Use 1 [place] in each nostril twice daily. Rinse mouth after use. albuterol HFA (PROVENTIL HFA, VENTOLIN HFA) 90 mcg/actuation inhaler Inhale 2 Puffs as instructed every 4 hours as needed for Wheezing/Shortness of Breath. metoprolol tartrate, short acting, (LOPRESSOR) 25 mg tablet Take 0.5 tablets by mouth twice daily. COMPOUNDED PRESCRIPTION Right arm wedge. Disp #1. Use as directed to keep right arm elevated. Blood Pressure Monitor kit 1 application twice daily. Measure patient for correct size. Patient needs cuff for left arm readings. COMPOUNDED PRESCRIPTION Articulating AFO foot brace for right leg. Send to [employer]. Dx: I63.9 COMPOUNDED PRESCRIPTION EMBER WALKER DX I63.9 weight 162 # Diaper,Brief, Adult,Disposable (DEPEND REAL FIT BRIEF MEN L/XL) misc 1 Each as needed. Blood Pressure Monitor kit 1 Kit once daily. Please measure patient for correct size. No current facility-administered medications on file prior to visit. Social History Social History Tobacco Use Smoking status: Former Years: 45.00 Types: Cigarettes Quit date: 07/08/2016 Years since quittin.9 Smokeless tobacco: Never Tobacco comments: 07/08/2016 Vaping Use Vaping Use: Never used Substance Use Topics Alcohol use: No Drug use: Never Review of Symptoms GENERAL: No malaise or fatigue. No fevers. HEENT: Negative for headaches No eye discharge or redness No earaches No sore throat Nose POS/NEG for congestion and nasal discharge NECK: Negative for pain or swelling. No lumps RESPIRATORY: No wheezing, SOB, Difficulty breathing. No cough CARDIOVASCULAR: Negative for chest pain GI: No nausea, vomiting, or diarrhea MUSCULOSKELETAL: Negative for bodyaches SKIN: Negative for rash or itching Neuro: + Difficulty sleeping EXAM: There were no vitals taken for this visit. Limited exam as visit was completed over the phone platform. Virtual visit completed using video, limited exam completed. Patient sounds or appears ill: No Psych: Attitude - cooperative Affect - Euthymic, normal mood Mental status: Alert. Speech is clear and fluent with good repetition, comprehension Appearance - Normal hygiene and grooming appropriate Coordination: No abnormal or extraneous movements. Gait/Stance: Posture is normal. Health Maintenance List ABDOMINAL AORTIC ANEURYSM SCREENING Never done PNEUMOCOCCAL: 65+(1 - PCV) Never done SPIROMETRY Never done HEPATITIS C SCREENING Never done DTAP,TDAP,TD(1 - Tdap) Never done ALPHA-1 ANTITRYPSIN DEFICIENCY SCREENING Never done SHINGRIX VACCINE(1 of 2) Never done PROSTATE CANCER SCREENING DISCUSSION due on 06/03/2015 ADVANCE DIRECTIVE DISCUSSION Never done DEPRESSION ASSESSMENT Never done COVID-19 VACCINE(4 - Booster for Moderna series) due on 09/11/2021 INFLUENZA(1) due on 04/05/2022 COLORECTAL CANCER SCREENING due on 09/11/2022 LDL CHOLESTEROL due on 10/02/2022 BP CONTROLLED (<130/80) due on 04/19/2023 ANNUAL PCP TEAM CHRONIC DISEASE VISIT due on 05/10/2023 DIABETES SCREEN due on 03/19/2025 LIPID SCREEN due on 10/02/2026 Data reviewed Last 5 Encounter BP Readings: Date: BP: 04/19/2022 122/70 01/24/2022 124/78 10/04/2021 123/62 10/02/2021 130/68[left arm manual[ 09/12/2021 127/79 BMI Readings from Last 5 Encounters: 04/19/22 : 28.06 kg/m 01/24/22 : 28.21 kg/m 10/04/21 : 28.94 kg/m 10/02/21 : 28.94 kg/m 05/18/21 : 25.99 kg/m Last 5 Encounter Wt Readings: Date: Wt: 04/19/2022 86.2 kg (190 lb) 01/24/2022 86.6 kg (191 lb) 10/04/2021 88.9 kg (196 lb) 10/02/2021 88.9 kg (196 lb) 05/18/2021 79.8 kg (176 lb) Medication and allergy list reviewed, reconciled and updated 07/04/2022 ASSESSMENT/PLAN: 1. Aphasia as late effect of cerebrovascular accident - ICD9: 438.11, ICD10: I69.320 (primary diagnosis) - Continue PT and Speech therapy as ordered. 2. DARON (obstructive sleep apnea) - ICD9: 327.23, ICD10: G47.33 - Continue with CPAP - Recommend consult with sleep medicine in the future if struggling with mask fit. - Keep scheduled appointments with pulmonology. 3. Chronic insomnia - ICD9: 780.52, ICD10: F51.04 - Increase Trazodone to 150 mg at bed time. - Medication instructions provided. - Discussed sleep hygiene, decrease screen time prior to his bed. - TRAZODONE 50 MG TABLET Follow-up as needed or sooner if symptoms do not improve. Discussed treatment plan and patient voices understanding. Patient's questions answered appropriately. Medications and potential side effects were discussed and patient voices understanding. Jessie Harmon APRN.OPERATIONS LABEL CLERK Total appointment time on phone with patient = 21-30 minutes This note was partially generated using [employer] voice recognition system. Note was reviewed for accuracy. There may be minor misspellings or grammar miscues with [employer] voice recognition. documented in this encounterProtestant Hospital11-04-2022 Miscellaneous Notes* Telephone Encounter - Monica Cruz Ma - 06/08/2022 5:00 PM EDT Pt and notified voiced understanding. At this time Afshin is not interested in seeing Urologist.They will call back if he changes his mind. Monica Cruz Ma * Telephone Encounter - Jaci Arroyo MD - 06/08/2022 4:43 PM EDT Noted. It is typical for people with vascular disease, which is what causes strokes, to also have ED problems. Unfortunately there are not any other medications that I am aware of other than Cialis and Viagra. I could refer to Urology if he wants o explore other aids to help with getting an erection. Jaci Arroyo MD * Telephone Encounter - Monica Cruz Ma - 06/08/2022 4:[address] Mcgrath wants pt to have another overnight oximetry done with oxygen on this time. Last one was done without oxygen. He will be having this done Saturday night. Pt has been on 2 different ED medications. He was on both viagra and cialis and had reaction to the, made him antsy. is asking if there is something he can take to help him get a full erection. states that he only gets about half way there and then nothing else happens. It is very frustrating for him. She is asking if ED is normal for people who have had strokes. Jessa Ellis. Monica Cruz Ma * Telephone Encounter - Jaci Arroyo MD - 06/08/2022 4:17 PM EDT OK to refill ativan with increase to three times/day I would defer to Dr Mcgrath on the oxygen results Jaci Arroyo MD * Telephone Encounter - Milan Brunson RN - 06/08/2022 11:10 AM EDT reports patient only has 1 ativan pill left. Asking if pcp can increase to 1 pill 3 x's day (from twice daily). Reports patient is very irritable and rude, and not listening to her all week. Reports patient had a home sleep test done on , which showed oxygen sat in low 70's - 80's. Reportsno oxygen was used for this study. Reports Dr. Mcgrath [facility], [facility], has those results but has not yet advised her. Reports patient had a home sleep test done 4 mths ago, and the results of this one are worse. Please phone , Eli, with reply- [phone] * Telephone Encounter - Loida Vazquez LPN - 06/08/2022 10:36 AM EDT Patient has been identified by name and date of : Yes Spouse phones for refill(s): Requested Prescriptions Pending Prescriptions Disp Refills LORazepam (ATIVAN) 0.5 mg 60 tablet 0 Sig: take 1 tablet by mouth twice a day Date of last office visit in primary care: 05/10/2022, has appt 06/21/2022 Last 2 Encounter Wt Readings: Date: Wt: 04/19/2022 86.2 kg (190 lb) 01/24/2022 86.6 kg (191 lb) Previous labs/tests for medication: Not applicable Please advise. Thank you. Loida Vazquez LPN documented in this encounterProtestant Hospital10-27-2022 Miscellaneous Notes* Telephone Encounter - Jaci Arroyo MD - 05/31/2022 9:51 AM EDT Noted Jaci Arroyo MD * Telephone Encounter - Loida Vazquez LPN - 05/25/2022 4:54 PM EDT Funmilayo from [facility] calling to report missed visit for ST today, and patient were bothnot feeling well today so cancelled visit. documented in this encounterProtestant Hospital10-06-2022 Miscellaneous Notes* Telephone Encounter - Monica Cruz Ma - 05/10/2022 11:42 AM EDT Order for Speech Therapy and OV faxed to [facility] at [phone] Monica Cruz Ma * Telephone Encounter - Rachel Buckley Ma - 05/08/2022 10:19 AM EDT I've retried sending order within [facility] today. Will see if this goes through. Rachel Buckley Ma * Telephone Encounter - Dimple Agustin LPN - 05/07/2022 11:17 AM EDT Pt's calls to report that [facility] is saying they have not received orders for speech therapy.Eli requested the orders be re-faxed to : [phone]. This nurse has tried to fax orders three times. Fax does not go through stating line is busy. Left a message on pt's vm stating same. Dimple Agustin LPN documented in this encounterProtestant Hospital10-06-2022 History of Present illness Narrative* Jaci Arroyo MD - 05/10/2022 10:40 AM EDT Chief Complaint Follow up; [id number]-gd-[id number] visit for home therapy HPI: This Team Access Model visit is a virtual encounter. It required patient- provider interaction for the medical decision making as documented below. Patient was offered a virtual/telemedicine appointment in lieu of an office visit due to recommendations to reduce patient exposure to COVID-19. Patient is aware of limitations of performing the visit without a face to face visit in the office setting and agrees. Spoke with pt Eli who is on the VV with pt today. Needs to do a face to face visit to get Speech therapy through [facility]. Insurance required. He has been getting speech therapy; showing good improvement with this, so he would like to continue with it. Also requests Physical Therapy; has noted that his right leg is dragging more recently. Past medical history, appointments, medications, allergies reviewed. Previous Medical History PAST MEDICAL HISTORY Diagnosis Date Acute cerebral infarction (HCC) left Aneurysm (HCC) Atrial fibrillation (HCC) 11/2016 CAD (coronary artery disease) Carotid stenosis Dysphasia Hyperglycemia Hypertension PVD (peripheral vascular disease) (HCC) Respiratory failure (HCC) hypoxic-ventilator dependent Stroke (cerebrum) (HCC) Tobacco abuse Previous Surgical History PAST SURGICAL HISTORY Procedure Laterality Date CABG (5) VENOUS GRAFTS & ARTERIAL GRAFT(S) 10/30/2016 CABG CONSULT 10/30/2016 multi vessel HEART CATHETERIZATION 09/17/2016 TRACHEOSTOMY HX Family History FAMILY HISTORY Problem Relation Age of Onset Heart Mother CO in her 70s, pacemaker Diabetes Mother Stroke Father other (AAA) Father other (CAD) Brother Hypertension Brother Patient Allergies ALLERGIES Allergen Reactions Sulfate Salt Hives Zpak [Azithromycin] Hives Lisinopril Swelling Lip swelling after starting lisinopril. Current Medications Current Outpatient Medications on File Prior to Visit Medication Sig LORazepam (ATIVAN) 0.5 mg take 1 tablet by mouth twice a day baclofen (LIORESAL) 10 mg tablet Take 0.5 tablets by mouth three times daily. busPIRone (BUSPAR) 10 mg tablet Take 1 tablet by mouth three times daily. potassium chloride (K-TAB) 10 mEq tablet Take 2 tablets by mouth three times daily. albuterol (PROVENTIL) 2.5 mg /3 mL (0.083 %) nebulizer solution Use 3 mL via nebulizer every 4 hours as needed for wheezing/shortness of breath. Use over 5-15minutes. multivitamin tablet Take 1 tablet by mouth once daily. amiodarone (PACERONE) 100 mg tablet Take 1 tablet by mouth once daily. Do not take if heart rate isless than 40 amLODIPine (NORVASC) 10 mg tablet Take 1/2 tablet twice daily atorvastatin (LIPITOR) 40 mg tablet Take 1 tablet by mouth once daily. clopidogrel (PLAVIX) 75 mg tablet Take 1 tablet by mouth once daily. apixaban (ELIQUIS) 5 mg tab(s) TAKE ONE (1) TABLET BY MOUTH TWICE DAILY escitalopram oxalate (LEXAPRO) 20 mg tablet Take 1 tablet by mouth once daily. famotidine (PEPCID) 20 mg tablet Take 1 tablet by mouth at bedtime as needed. ezetimibe (ZETIA) 10 mg tablet Take 1 tablet by mouth once daily. clotrimazole-betamethasone (LOTRISONE) cream Apply to affected area twice daily. polyethylene glycol 3350 (MIRALAX, GLYCOLAX) 17 gram/dose powder Use as directed for Miralax / Gatorade Bowel Prep Kit Gatorade Sports Drink Use as directed for Miralax / Gatorade Bowel Prep Kit Bisacodyl (DULCOLAX) 5 mg tab Use as directed for Miralax / Gatorade Bowel Prep Kit hydroCHLOROthiazide (HYDRODIURIL, ESIDRIX) 12.5 mg tablet Take 1 tablet by mouth once daily. traZODone (DESYREL) 100 mg tablet Take 1 tablet by mouth daily at bedtime. fluticasone (FLONASE) 50 mcg/actuation nasal spray Use 1 [place] in each nostril twice daily. Rinse mouth after use. albuterol HFA (PROVENTIL HFA, VENTOLIN HFA) 90 mcg/actuation inhaler Inhale 2 Puffs as instructed every 4 hours as needed for Wheezing/Shortness of Breath. metoprolol tartrate, short acting, (LOPRESSOR) 25 mg tablet Take 0.5 tablets by mouth twice daily. COMPOUNDED PRESCRIPTION Right arm wedge. Disp #1. Use as directed to keep right arm elevated. Blood Pressure Monitor kit 1 application twice daily. Measure patient for correct size. Patient needs cuff for left arm readings. COMPOUNDED PRESCRIPTION Articulating AFO foot brace for right leg. Send to [employer]. Dx: I63.9 COMPOUNDED PRESCRIPTION EMBER WALKER DX I63.9 weight 162 # Diaper,Brief, Adult,Disposable (DEPEND REAL FIT BRIEF MEN L/XL) misc 1 Each as needed. Blood Pressure Monitor kit 1 Kit once daily. Please measure patient for correct size. No current facility-administered medications on file prior to visit. Social History Social History Tobacco Use Smoking status: Former Years: 45.00 Types: Cigarettes Quit date: 07/08/2016 Years since quittin.8 Smokeless tobacco: Never Tobacco comments: 07/08/2016 Vaping Use Vaping Use: Never used Substance Use Topics Alcohol use: No Drug use: Never EXAM: There were no vitals taken for this visit. General Appearance: Well appearing, alert, in no acute distress, well-hydrated, well nourished.. Health Maintenance List ABDOMINAL AORTIC ANEURYSM SCREENING Never done PNEUMOCOCCAL: 65+(1 - PCV) Never done SPIROMETRY Never done HEPATITIS C SCREENING Never done DTAP,TDAP,TD(1 - Tdap) Never done ALPHA-1 ANTITRYPSIN DEFICIENCY SCREENING Never done SHINGRIX VACCINE(1 of 2) Never done PROSTATE CANCER SCREENING DISCUSSION due on 06/03/2015 ADVANCE DIRECTIVE DISCUSSION Never done DEPRESSION ASSESSMENT Never done COVID-19 VACCINE(4 - Booster for Moderna series) due on 09/11/2021 INFLUENZA(1) due on 04/05/2022 COLORECTAL CANCER SCREENING due on 09/11/2022 LDL CHOLESTEROL due on 10/02/2022 ANNUAL PCP TEAM CHRONIC DISEASE VISIT due on 03/20/2023 BP CONTROLLED (<130/80) due on 04/19/2023 DIABETES SCREEN due on 03/19/2025 LIPID SCREEN due on 10/02/2026 Data reviewed none ASSESSMENT/PLAN: 1. Aphasia as late effect of cerebrovascular accident - ICD9: 438.11, ICD10: I69.320 (primary diagnosis) Continue home Speech Therapy, as thi shas been beneficial for him 2. Right hemiplegia (HCC) - ICD9: 342.90, ICD10: G81.91 Home Physical Therapy 3. Cerebrovascular accident (CVA), unspecified mechanism (HCC) - ICD9: 434.91, ICD10: I63.9 4. Coronary artery disease involving [place] coronary artery of [place] heart without angina pectoris- ICD9: 414.01, ICD10: I25.10 5. Essential hypertension - ICD9: 401.9, ICD10: I10 6. Paroxysmal atrial fibrillation (HCC) - ICD9: 427.31, ICD10: I48.0 7. Anxiety - ICD9: 300.00, ICD10: F41.9 8. Dysphasia - ICD9: 784.59, ICD10: R47.02 Speech Therapy Follow up prn I agree with the Chief Complaint, ROS, and Past Histories independently gathered by the clinical technical support technician and the remaining scribed note accurately describes my personal service to the patient. Jaci Arroyo MD The documentation for this note was completed by Monica Cruz Ma acting as scribe for Jaci Arroyo MD. May 10, 2022 10:11 AM. Monica Cruz Ma documented in this encounterProtestant Hospital10-03-2022 Miscellaneous Notes* Telephone Encounter - Mariano Beckman APRN.CNP - 05/07/2022 9:52 AM EDT Sent. PDMP website checked and validated. All prescriptions have been APPROPRIATELY filled. No suspiciousactivity was identified. 05/07/2022 by Mariano Beckman APRN.CNP The following approved medication requests have been transmitted electronically. Requested Prescriptions Signed Prescriptions Disp Refills LORazepam (ATIVAN) 0.5 mg 60 tablet 0 Sig: take 1 tablet by mouth twice a day Authorizing Provider: MARIANO BECKMAN APRN.CNP * Telephone Encounter - Raiza John RN - 05/07/2022 8:59 AM EDT Patient has been identified by name and date of : Yes Spouse phones for refill(s): Requested Prescriptions Pending Prescriptions Disp Refills LORazepam (ATIVAN) 0.5 mg [Pharmacy Med Name: LORAZEPAM 0.5 MG TABLET] 60 tablet Sig: take 1 tablet by mouth twice a day calls in to request refill. Patient only has two pills left. Date of last office visit with pcp: 03/20/2022 Future appt: 06/21/2022 Last 2 Encounter Wt Readings: Date: Wt: 04/19/2022 86.2 kg (190 lb) 01/24/2022 86.6 kg (191 lb) Previous labs/tests for medication: Blood Pressure: BUN (mg/dL) Date Value 03/19/2022 13 02/01/2021 18 Sodium (mmol/L) Date Value 03/19/2022 142 02/01/2021 139 Last 1 Encounter BP Readings: Date: BP: 04/19/2022 122/70 Liver Function: ALT (U/L) Date Value 03/19/2022 20 02/01/2021 14 AST (U/L) Date Value 03/19/2022 21 02/01/2021 14 Please advise. Thank you. Raiza John RN documented in this encounterProtestant Hospital10-03-2022 Miscellaneous Notes* Telephone Encounter - Raiza John RN - 05/07/2022 8:57 AM EDT Opened in error. Raiza John RN documented in this encounterProtestant Hospital09-29-2022 Miscellaneous Notes* Telephone Encounter - Monica Cruz Ma - 05/03/2022 4:56 PM EDT Order faxed to number below, Eli notified. Monica Cruz Ma * Telephone Encounter - Jaci Arroyo MD - 05/03/2022 4:[address] order filed Jaci Arroyo MD * Telephone Encounter - Khris Gutierrez RN - 05/03/2022 3:50 PM EDT Pts called in asking about orders for ST. She reports he has been off for 30 days, but it is on going due to his stroke. Please call once orders are placed. * Telephone Encounter - Amaya Kessler RN - 05/01/2022 11:11 AM EDT Patient's calling and states patient's speech therapy ended on 03/30/22 with [facility]. Asking if another ST order can be placed and faxed to to them at FAX#: [phone]- would like patient to have additional therapy and she states Medicare will cover it. Please call with update. Thank you. documented in this encounterProtestant Hospital09-15-2022 History of Present illness Narrative* Sabiha Stevens MD - 04/19/2022 10:34 AM EDT Afshin Zee is a 66 year old male here for evaluation of his peripheral vascular disease. He is a prior pt of SHERYL in our [place] office and of [facility] before that. He was last seen by SHERYL 05/2021. He has a known L ICA occlusion. CABG x5 in 2017 and had a post op stroke. He has residual R hemiplegia and significant expressive aphasia. He has a R foot drop. His family does most of the talking. On his last visit, he had a weakly palpable PT pulse B and no symptoms of claudication or rest pain. He did have a carotid US scanned in from 08/2021 that showed known L occlusion and R 50-69% stenosis. He follows with his cath lab manager for this. Today, His symptoms include: Claudication No Location: Distance: Rest pain No Tissue loss No Location: He has no issues or complaints. They would like a referral to [facility] to try and get a better brace for his foot drop. We also discussed the importance of good foot care, wearing good shoes, and avoiding trauma. The patient understands that a non-healing wound could result in amputation. His prior surgery includes: PAST SURGICAL HISTORY Procedure Laterality Date CABG (5) VENOUS GRAFTS & ARTERIAL GRAFT(S) 10/30/2016 CABG CONSULT 10/30/2016 multi vessel HEART CATHETERIZATION 09/17/2016 TRACHEOSTOMY HX HISTORIES: PAST MEDICAL HISTORY Diagnosis Date Acute cerebral infarction (HCC) left Aneurysm (HCC) Atrial fibrillation (HCC) 11/2016 CAD (coronary artery disease) Carotid stenosis Dysphasia Hyperglycemia Hypertension PVD (peripheral vascular disease) (HCC) Respiratory failure (HCC) hypoxic-ventilator dependent Stroke (cerebrum) (HCC) Tobacco abuse PAST SURGICAL HISTORY Procedure Laterality Date CABG (5) VENOUS GRAFTS & ARTERIAL GRAFT(S) 10/30/2016 CABG CONSULT 10/30/2016 multi vessel HEART CATHETERIZATION 09/17/2016 TRACHEOSTOMY HX Social History Tobacco Use Smoking status: Former Years: 45.00 Types: Cigarettes Quit date: 07/08/2016 Years since quittin.7 Smokeless tobacco: Never Tobacco comments: 07/08/2016 Vaping Use Vaping Use: Never used Substance Use Topics Alcohol use: No Drug use: Never MEDICATIONS: Current Outpatient Medications Medication Sig Dispense Refill baclofen (LIORESAL) 10 mg tablet Take 0.5 tablets by mouth three times daily. 45 tablet 5 busPIRone (BUSPAR) 10 mg tablet Take 1 tablet by mouth three times daily. 270 tablet 3 potassium chloride (K-TAB) 10 mEq tablet Take 2 tablets by mouth three times daily. 540 tablet 3 albuterol (PROVENTIL) 2.5 mg /3 mL (0.083 %) nebulizer solution Use 3 mL via nebulizer every 4 hours as needed for wheezing/shortness of breath. Use over 5- 15minutes. 120 mL 5 multivitamin tablet Take 1 tablet by mouth once daily. 90 tablet 3 amiodarone (PACERONE) 100 mg tablet Take 1 tablet by mouth once daily. Do not take if heart rate isless than 40 90 tablet 3 amLODIPine (NORVASC) 10 mg tablet Take 1/2 tablet twice daily 90 tablet 3 atorvastatin (LIPITOR) 40 mg tablet Take 1 tablet by mouth once daily. 90 tablet 3 clopidogrel (PLAVIX) 75 mg tablet Take 1 tablet by mouth once daily. 90 tablet 3 apixaban (ELIQUIS) 5 mg tab(s) TAKE ONE (1) TABLET BY MOUTH TWICE DAILY 180 tablet 3 escitalopram oxalate (LEXAPRO) 20 mg tablet Take 1 tablet by mouth once daily. 90 tablet 3 famotidine (PEPCID) 20 mg tablet Take 1 tablet by mouth at bedtime as needed. 90 tablet 3 ezetimibe (ZETIA) 10 mg tablet Take 1 tablet by mouth once daily. 90 tablet 3 LORazepam (ATIVAN) 0.5 mg TAKE ONE (1) TABLET BY MOUTH TWICE DAILY 60 tablet 2 clotrimazole-betamethasone (LOTRISONE) cream Apply to affected area twice daily. 30 g 1 polyethylene glycol 3350 (MIRALAX, GLYCOLAX) 17 gram/dose powder Use as directed for Miralax / Gatorade Bowel Prep Kit 238 g 0 Gatorade Sports Drink Use as directed for Miralax / Gatorade Bowel Prep Kit Bisacodyl (DULCOLAX) 5 mg tab Use as directed for Miralax / Gatorade Bowel Prep Kit 4 tablet 0 hydroCHLOROthiazide (HYDRODIURIL, ESIDRIX) 12.5 mg tablet Take 1 tablet by mouth once daily. 90 tablet 3 traZODone (DESYREL) 100 mg tablet Take 1 tablet by mouth daily at bedtime. 30 tablet 11 fluticasone (FLONASE) 50 mcg/actuation nasal spray Use 1 [place] in each nostril twice daily. Rinse mouth after use. 16 g 11 albuterol HFA (PROVENTIL HFA, VENTOLIN HFA) 90 mcg/actuation inhaler Inhale 2 Puffs as instructed every 4 hours as needed for Wheezing/Shortness of Breath. 18 g 5 metoprolol tartrate, short acting, (LOPRESSOR) 25 mg tablet Take 0.5 tablets by mouth twice daily. COMPOUNDED PRESCRIPTION Right arm wedge. Disp #1. Use as directed to keep right arm elevated. 1 Each 1 Blood Pressure Monitor kit 1 application twice daily. Measure patient for correct size. Patient needs cuff for left arm readings. 1 Kit 0 COMPOUNDED PRESCRIPTION Articulating AFO foot brace for right leg. Send to [facility]. Dx: I63.9 1 Device 0 COMPOUNDED PRESCRIPTION EMBER WALKER DX I63.9 weight 162 # 1 Each 0 Diaper,Brief, Adult,Disposable (DEPEND REAL FIT BRIEF MEN L/XL) misc 1 Each as needed. 100 Each 11 Blood Pressure Monitor kit 1 Kit once daily. Please measure patient for correct size. 1 Kit 0 No current facility-administered medications for this visit. ALLERGIES: ALLERGIES Allergen Reactions Sulfate Salt Hives Zpak [Azithromycin] Hives Lisinopril Swelling Lip swelling after starting lisinopril. PHYSICAL EXAM: PHYSICAL EXAMINATION: General appearance: Well appearing, alert, in no acute distress, well-hydrated, well nourished. Skin: Skin color, texture, turgor normal, no suspicious rashes or lesions Head: Normocephalic, no abnormalities Lungs: Breathing unlabored on RA Heart: Abdomen: Extremities: No deformities, edema, skin discoloration, clubbing or cyanosis. Good capillary refill. Musculoskeletal: No joint swelling, deformity, or tenderness Peripheral pulses: weakly palpable DP/PT bilatearally Neuro: walks with a cane, sensation grossly in tact Tissue loss: none ASSESSMENT: Peripheral Vascular Occlusive Disease: Afshin is having optimal management of their atherosclerotic disease including antiplatelet therapy and statin therapy and if he is not we are recommending that he be seen by his primary care doctor for addition of appropriate therapy. The patient has a full discussion of the risks, benefits, and alternatives to medical management versus interventional management versus open surgical management of their disease. At this point in time, given Afshin's symptoms all of these are discussed with regard to their appropriateness in this setting. PLAN: Continue medications, activity as able, good foot care Only indication for intervention would be a non-healing wound Pt requests [facility] referral FOLLOW UP: 1 year and prn Sabiha Stevens MD I spent 30 minutes in the visit, with more than 50% of the total [id number] time of the visit in counseling / coordination of care. documented in this encounterProtestant Hospital09-09-2022 Miscellaneous Notes* Telephone Encounter - Raiza John RN - 04/13/2022 11:58 AM EDT calls to ask provider if it would be ok if patient went one night away from home without his oxygen. She reports that his pulse ox is always above 90% and often at home he takes the oxygen off throughout the night. reports that they are leaving in 4 hours and needs an answer before that and if they don't getan answer he is just going to go without for the night. then reports that she believes surveyor helper rod has told patient he can do this any ways so disregard request. TE not forwarded as determined what patient would be doing with out provider response. Raiza John RN documented in this encounterProtestant Hospital09-08-2022 Miscellaneous Notes* Telephone Encounter - Jayde Laughlin RN - 04/12/2022 10:34 AM EDT Patient's calls and notified of provider instructions. voices understanding. Jayde Laughlin RN * Telephone Encounter - Mariano Beckman APRN.CNP - 04/12/2022 7:51 AM EDT As long as it doesn't have aspirin in it, its okay. Mariano Beckman APRN.ESTELLA * Telephone Encounter - Therese Paz LPN - 04/11/2022 1:40 PM EDT Pt's called and she is asking if pt to take multivitamin made by [email or web address]. Pt is not to have anything with aspirin in it per . Please advise. Therese Paz LPN documented in this encounterProtestant Hospital08-19-2022 Miscellaneous Notes* Telephone Encounter - Rachel Buckley Ma - 03/23/2022 9:36 AM EDT Called LM on identifiable VM that fasting labs have been ordered for pt. LM for Eli, pt's . Notified her if questions to contact office. Rachel Buckley Ma * Telephone Encounter - Jaci Arroyo MD - 03/23/2022 8:45 AM EDT Labs ordered Jaci Arroyo MD * Telephone Encounter - Khris Gutierrez RN - 03/22/2022 4:33 PM EDT Pts called and is notified of providers results and instructions. She voices understanding. She was asking if provider was going to put in labs for his June appointment. Please call once labs are placed. Khris Gutierrez RN * Telephone Encounter - Jaci Arroyo MD - 03/22/2022 4:04 PM EDT His lab results look good. His glucose is just borderline high, so we can follow that with his regular blood work. His BNP, which is a test for heart failure, is improved from last time. Overall all looks good to me. Jaci Arroyo MD * Telephone Encounter - Khris Gutierrez RN - 03/22/2022 3:42 PM EDT Pts called and is notified of providers message. She voices understanding. She was asking if provider would go over Pts recent labs and call and advise. Khris Gutierrez RN * Telephone Encounter - Jaci Arroyo MD - 03/22/2022 3:20 PM EDT I would recommend using the clotrimazole betamethasone cream Jaci Arroyo MD * Telephone Encounter - Milan Brunson RN - 03/22/2022 1:16 PM EDT reports patient has reddness/irritation pretty bad on his penis and including tip of penis. Present a couple days now. Has clotrimazole betamethasone cream that pcp prescribed and also chamosyn ointment the group home gave her. The chamosyn ointment is hypoallergenic for sensitive skin. Ask ing pcp which one should she use for this? Reports patient is not circumcised, which makes it worse. Please advise . documented in this encounterProtestant Hospital08-05-2022 Miscellaneous Notes* Telephone Encounter - Monica Cruz Ma - 03/09/2022 11:05 AM EDT Unique notified and voiced understanding. Monica Cruz Ma * Telephone Encounter - Jaci Arroyo MD - 03/09/2022 10:40 AM EDT OK for verbal order to authorize the home health care nurse to omit visit this week and see patienttwice next week as requested Jaci Arroyo MD * Telephone Encounter - Amaya Kessler RN - 03/09/2022 9:27 AM EDT Unique with [facility] calling to ask for verbal order to authorize the home health care nurse to omit visit this week and see patient twice next week. Please call Unique with order at [phone] ext [phone]. Unique also requesting for PCP office to disregard the missed visit notification that was faxed to office today. Patient will not have a missed visit, but will be seen twice next week instead. Thank you. documented in this encounterProtestant Hospital2022 Miscellaneous Notes* Addendum Note - Jorge Cardoso MD - 03/05/2022 4:28 PM EDT Addended by: JORGE CARDOSO on: 03/05/2022 04:28 PM Modules accepted: Orders * Telephone Encounter - Jorge Cardoso MD - 03/05/2022 4:27 PM EDT HE already has heme positive stools. The cologuard is not indicated and will be positive for the blood component. * Telephone Encounter - Sharon Hinojosa - 03/05/2022 4:20 PM EDT Patient called in to cancel his upper and lower scopes with Dr. Cardoso in [place] on 03/26. Per patient stated he does not wish to have this done at this time. Patient did state he would like to do a cologaurd test instead. Orders being cancelled. Can we place the cologaurd order for this patient instead for lab warehouse picker Thank you in advance Tish documented in this encounterProtestant Hospital2022 Miscellaneous Notes* Telephone Encounter - Manisha Vasquez - 03/05/2022 3:46 PM EDT LMOM to schedule Dr Kaplan New Patient Annual F/UP for PAD with No Testing *Dr Avila Patient 2019, Dr Naylor Patient 2018*(Patient wants Yesika) documented in this encounterProtestant Hospital07-18-2022 Miscellaneous Notes* Telephone Encounter - Mariano Beckman APRN.CNP - 02/19/2022 10:59 AM EDT The following approved medication requests have been transmitted electronically. Pending Prescriptions Disp Refills AMIODARONE 100 MG TABLET 90 tablet 3 Sig: Take 1 tablet by mouth once daily. Do not take if heart rate is less than 40 ANGELA: No AMLODIPINE 10 MG TABLET 90 tablet 3 Sig: Take 1/2 tablet twice daily ANGELA: No ATORVASTATIN 40 MG TABLET 90 tablet 3 Sig: Take 1 tablet by mouth once daily. ANGELA: No CLOPIDOGREL 75 MG TABLET 90 tablet 3 Sig: Take 1 tablet by mouth once daily. ANGELA: No APIXABAN 5 MG TABLET 180 tablet 3 Sig: TAKE ONE (1) TABLET BY MOUTH TWICE DAILY ANGELA: No ESCITALOPRAM 20 MG TABLET 90 tablet 3 Sig: Take 1 tablet by mouth once daily. ANGELA: No FAMOTIDINE 20 MG TABLET 90 tablet 3 Sig: Take 1 tablet by mouth at bedtime as needed. ANGELA: No EZETIMIBE 10 MG TABLET 90 tablet 3 Sig: Take 1 tablet by mouth once daily. ANGELA: No Mariano Beckman APRN.CNP * Telephone Encounter - Jayde Laughlin RN - 02/19/2022 10:46 AM EDT Last Office Visit: 01/24/2022 Future Office Visit: 03/20/2022 Last Medication Refill: escitalopram 02/03/2021 90 tab 3 refill famotidine 02/03/2021 90 tab 3 refill clopidogrel 02/03/2021 90 tab 3 refill apixaban 02/03/2021 180 tab 3 refill amlodipine 02/03/2021 90 tab 3 refill atorvastatin 02/03/2021 90 tab 3 refill amiodarone 02/03/2021 90 tab 3 refill ezetimibe 04/03/2021 90 tab 3 refill Date of Last Labs: 10/02/2021 documented in this encounterProtestant Hospital06-29-2022 Miscellaneous Notes* Telephone Encounter - Mariano Beckman APRN.CNP - 01/31/2022 11:29 AM EDT Approved. PDMP website checked and validated. All prescriptions have been APPROPRIATELY filled. No suspiciousactivity was identified. 01/31/2022 by Mariano Beckman APRN.CNP The following approved medication requests have been transmitted electronically. Signed Prescriptions Disp Refills LORazepam (ATIVAN) 0.5 mg 60 tablet 2 Sig: TAKE ONE (1) TABLET BY MOUTH TWICE DAILY WILFRED Class: C-IV ANGELA: No Authorizing Provider: MARIANO BECKMAN APRN.CNP * Telephone Encounter - Khris Gutierrez RN - 01/31/2022 9:01 AM EDT Patient has been identified by name and date of : Yes Spouse phones for refill(s): Pending Prescriptions Disp Refills LORAZEPAM 0.5 MG TABLET 60 tablet 2 Sig: TAKE ONE (1) TABLET BY MOUTH TWICE DAILY WILFRED Class: C-IV ANGELA: No Date of last office visit in primary care: 01/24/22 Future visit: 02/07/22 Last 2 Encounter Wt Readings: Date: Wt: 01/24/2022 86.6 kg (191 lb) 10/04/2021 88.9 kg (196 lb) Previous labs/tests for medication: Blood Pressure: BUN (mg/dL) Date Value 10/02/2021 12 02/01/2021 18 Sodium (mmol/L) Date Value 10/02/2021 140 02/01/2021 139 Last 1 Encounter BP Readings: Date: BP: 01/24/2022 124/78 Liver Function: ALT (U/L) Date Value 10/02/2021 16 02/01/2021 14 AST (U/L) Date Value 10/02/2021 18 02/01/2021 14 Please advise. Thank you. Khris Gutierrez RN documented in this encounterProtestant Hospital06-22-2022 History of Present illness Narrative* Jaci Arroyo MD - 01/24/2022 3:20 PM EDT Chief Complaint Patient presents with: Derm Problem HPI Afshin Zee is a 66 year old male who presents here today for groin issue. Here with as pt is not able to communicate verbally. Notes they went and watched the new Top Gun, felt like teenagers. Overall pt is doing well. [facility]. They have signed a records release so that they can obtain his records, mainly his lab is what he wants. With getting benefits through the [facility] he can continued Home Therapy through the same Company they have been using. His current insurance is closing out on pt's other insurance. Here today for an acute visit due to skin irritation in his groin area that is very red. , Eli unsure how long this has been there but assuming for some time due to how red the area is. Notes at times he does not wear underwear and unsure if his pants are rubbing the area. This morning she was washing him up and when she washed him he yelled about it. Pt denies much pain otherwise. Some irritation on penis due to being uncircumcised. brought all POA and Advance Directive paperwork. Past medical history, appointments, medications, allergies reviewed. Previous Medical History PAST MEDICAL HISTORY Diagnosis Date Acute cerebral infarction (HCC) left Aneurysm (HCC) Atrial fibrillation (HCC) 11/2016 CAD (coronary artery disease) Carotid stenosis Dysphasia Hyperglycemia Hypertension PVD (peripheral vascular disease) (HCC) Respiratory failure (HCC) hypoxic-ventilator dependent Stroke (cerebrum) (HCC) Tobacco abuse Previous Surgical History PAST SURGICAL HISTORY Procedure Laterality Date CABG (5) VENOUS GRAFTS & ARTERIAL GRAFT(S) 10/30/2016 CABG CONSULT 10/30/2016 multi vessel HEART CATHETERIZATION 09/17/2016 TRACHEOSTOMY HX Family History FAMILY HISTORY Problem Relation Age of Onset Heart Mother [place] in her 70s, pacemaker Diabetes Mother Stroke Father other (AAA) Father other (CAD) Brother Hypertension Brother Patient Allergies ALLERGIES Allergen Reactions Sulfate Salt Hives Zpak [Azithromycin] Hives Lisinopril Swelling Lip swelling after starting lisinopril. Current Medications Current Outpatient Medications on File Prior to Visit Medication Sig LORazepam (ATIVAN) 0.5 mg TAKE ONE (1) TABLET BY MOUTH TWICE DAILY baclofen (LIORESAL) 10 mg tablet Take 0.5 tablets by mouth three times daily. polyethylene glycol 3350 (MIRALAX, GLYCOLAX) 17 gram/dose powder Use as directed for Miralax / Gatorade Bowel Prep Kit Gatorade Sports Drink Use as directed for Miralax / Gatorade Bowel Prep Kit Bisacodyl (DULCOLAX) 5 mg tab Use as directed for Miralax / Gatorade Bowel Prep Kit hydroCHLOROthiazide (HYDRODIURIL, ESIDRIX) 12.5 mg tablet Take 1 tablet by mouth once daily. busPIRone (BUSPAR) 10 mg tablet Take 1 tablet by mouth three times daily. traZODone (DESYREL) 100 mg tablet Take 1 tablet by mouth daily at bedtime. fluticasone (FLONASE) 50 mcg/actuation nasal spray Use 1 [place] in each nostril twice daily. Rinse mouth after use. potassium chloride (K-TAB) 10 mEq tablet Take 2 tablets by mouth three times daily. albuterol (PROVENTIL) 2.5 mg /3 mL (0.083 %) nebulizer solution Use 3 mL via nebulizer every 4 hours as needed for wheezing/shortness of breath. Use over 5-15minutes. ezetimibe (ZETIA) 10 mg tablet Take 1 tablet by mouth once daily. escitalopram oxalate (LEXAPRO) 20 mg tablet Take 1 tablet by mouth once daily. famotidine (PEPCID) 20 mg tablet Take 1 tablet by mouth at bedtime as needed. clopidogrel (PLAVIX) 75 mg tablet Take 1 tablet by mouth once daily. apixaban (ELIQUIS) 5 mg tab(s) TAKE ONE (1) TABLET BY MOUTH TWICE DAILY amLODIPine (NORVASC) 10 mg tablet Take 1/2 tablet twice daily atorvastatin (LIPITOR) 40 mg tablet Take 1 tablet by mouth once daily. multivitamin tablet Take 1 tablet by mouth once daily. amiodarone (PACERONE) 100 mg tablet Take 1 tablet by mouth once daily. Do not take if heart rate isless than 40 clotrimazole-betamethasone (LOTRISONE) cream Apply to affected area twice daily. albuterol HFA (PROVENTIL HFA, VENTOLIN HFA) 90 mcg/actuation inhaler Inhale 2 Puffs as instructed every 4 hours as needed for Wheezing/Shortness of Breath. metoprolol tartrate, short acting, (LOPRESSOR) 25 mg tablet Take 0.5 tablets by mouth twice daily. COMPOUNDED PRESCRIPTION Right arm wedge. Disp #1. Use as directed to keep right arm elevated. Blood Pressure Monitor kit 1 application twice daily. Measure patient for correct size. Patient needs cuff for left arm readings. COMPOUNDED PRESCRIPTION Articulating AFO foot brace for right leg. Send to [facility]. Dx: I63.9 COMPOUNDED PRESCRIPTION EMBER WALKER DX I63.9 weight 162 # Diaper,Brief, Adult,Disposable (DEPEND REAL FIT BRIEF MEN L/XL) misc 1 Each as needed. Blood Pressure Monitor kit 1 Kit once daily. Please measure patient for correct size. No current facility-administered medications on file prior to visit. Social History Social History Tobacco Use Smoking status: Former Smoker Years: 45.00 Types: Cigarettes Quit date: 07/08/2016 Years since quittin.5 Smokeless tobacco: Never Used Tobacco comment: 07/08/2016 Vaping Use Vaping Use: Never used Substance Use Topics Alcohol use: No Drug use: Never EXAM: BP 124/78 (BP Site: Left Arm, BP Position: Sitting, BP Cuff Size: Regular Adult) Pulse 72 Resp 16 Wt 86.6 kg (191 lb) BMI 28.21 kg/m General Appearance: Well appearing, alert, in no acute distress, well-hydrated, well nourished.. Skin: tinea cruris in groin. Health Maintenance List ABDOMINAL AORTIC ANEURYSM SCREENING Never done PNEUMOCOCCAL: 65+(1 - PCV) Never done SPIROMETRY Never done HEPATITIS C SCREENING Never done DTAP,TDAP,TD(1 - Tdap) Never done SHINGRIX VACCINE(1 of 2) Never done PROSTATE CANCER SCREENING DISCUSSION due on 06/03/2015 ADVANCE DIRECTIVE DISCUSSION Never done COVID-19 VACCINE(4 - Booster for Moderna series) due on 11/15/2021 DEPRESSION SCREENING due on 02/03/2022 COLORECTAL CANCER SCREENING due on 09/11/2022 LDL CHOLESTEROL due on 10/02/2022 BP CONTROLLED (<130/80) due on 10/04/2022 ANNUAL PCP TEAM CHRONIC DISEASE VISIT due on 11/07/2022 DIABETES SCREEN due on 10/02/2024 LIPID SCREEN due on 10/02/2026 INFLUENZA Completed Data reviewed None ASSESSMENT/PLAN: 1. Fungal dermatitis - ICD9: 111.9, ICD10: B36.9 - Rx of Lotrisone cream Follow up in a couple weeks as scheduled. I agree with the Chief Complaint, ROS, and Past Histories independently gathered by the clinical technical support technician and the remaining scribed note accurately describes my personal service to the patient. Medical Decision Making: Problems: Low: Acute, uncomplicated illness or injury Risk: Moderate: Drug management Medical Decision Making Level: 3 - Low Jaci Arroyo MD The documentation for this note was completed by Rachel Buckley Ma acting as scribe for Jaci Arroyo MD. January 24, 2022 3:42 PM. Rachel Buckley Ma documented in this encounterProtestant Hospital06-16-2022 Miscellaneous Notes* Telephone Encounter - Jaci Arroyo MD - 01/18/2022 4:55 PM EDT Noted Jaci Arroyo MD * Telephone Encounter - Loida Vazquez LPN - 01/18/2022 12:14 PM EDT Maxine from [facility] calling patient missed his home health visit today. Nurse was unable to reach him or son. documented in this encounterProtestant Hospital05-31-2022 Miscellaneous Notes* Telephone Encounter - Rachel Buckley Ma - 01/02/2022 1:11 PM EDT Office received fax from pt's insurance approving the Rx from 12/03/21-01/02/23. Routed to scanning. Message routed to PA Nurse to make her aware. Rachel Buckley Ma * Telephone Encounter - Kimo Adamson Ma - 01/02/2022 11:48 AM EDT Prior Authorization has been completed online at [employer] for lorazepam, will await response. [id number] Please keep encounter open until final decision has been received and documented from insurance company. Kimo Adamson MA * Telephone Encounter - Kim Person LPN - 01/02/2022 11:03 AM EDT Prior Authorization Documentation Prior authorization requested for the following medication: Medication: Lorazepam 0.5mg Provider: Dr Arroyo Insurance Company Name: [facility] [email or web address] Phone number: [phone] or [phone] Patient ID number: [id number] Pharmacy Name: [facility] Telephone number: [phone] Kim Person LPN documented in this encounterProtestant Hospital05-05-2022 Miscellaneous Notes* Telephone Encounter - Sharon Hinojosa - 12/07/2021 8:57 AM EDT Patient rescheduled and moved to 03/26 with Walker in [place] Tish * Telephone Encounter - Lora James RN - 12/06/2021 3:56 PM EDT Afshin's , Eli zaragoza ([phone]). Eli states that Afshin is scheduled for an EGD and colonoscopy on 01/22/22 and they need to reschedule that to a different day. Eli states that she has lefta message, but has not heard back. According to his appointment tab, he is scheduled for 12/25/2021, but the patient's states that she spoke with the home care scheduler and it had been moved to 01/22/2022. Lora James RN documented in this encounterProtestant Hospital04-29-2022 Miscellaneous Notes* Telephone Encounter - Monica Cruz Ma - 12/01/2021 1:55 PM EDT Detailed message left on Sandra's identified and confidential VM. Monica Cruz Ma' * Telephone Encounter - Jaci Arroyo MD - 12/01/2021 1:52 PM EDT OK for Home Care and PT as requested Jaci Arroyo MD * Telephone Encounter - Loida Vazquez LPN - 12/01/2021 1:45 PM EDT Kandy from [facility] calling opened patient case for services. is asking for Physical Therapy order also. Please call with verbal order. Please advise documented in this encounterProtestant Hospital04-20-2022 Miscellaneous Notes* Telephone Encounter - Rachel Buckley Ma - 11/22/2021 1:22 PM EDT Completed and faxed to number below. Rachel Buckley Ma * Telephone Encounter - Jaci Arroyo MD - 11/22/2021 1:07 PM EDT Order signed Jaci Arroyo MD * Telephone Encounter - Rachel Buckley Ma - 11/22/2021 12:48 PM EDT Office received fax from [facility], stating they need new signed orders from PCP due to pt having a change in insurance. Please review form and complete. Once completed fax back to [phone], Myra Oro LPN. Rachel Buckley Ma documented in this encounterCleveland [id number] History of Present illness Narrative* Jaci Arroyo MD - 11/07/2021 1:20 PM EDT Chief Complaint Patient presents with: F/U 3 Month HPI: This Team Access Model visit is a phone encounter. It required patient- provider interaction for the medical decision making as documented below. Patient was offered a virtual/telemedicine appointment in lieu of an office visit due to recommendations to reduce patient exposure to COVID-19. Patient is aware of limitations of performing the visit without a face to face visit in the office setting and agrees. Eli on line with pt, due to pt's aphasia. Pt's son was life flighted to hospital last night due to coughing up blood. No bowel, Gi, or urinary issues. He did follows with Dr. Cardoso for blood in stool in October. Pt scheduled for Colonoscopy/EGD in December. GERD: Controlled with Pepcid 20 mg daily. JESS: Taking Lexapro 20 mg daily, Ativan 0.5 mg BID and Trazodone 100 mg daily at bedtime. Also taking Buspar 10 mg TID prn. Doing well. CVA/CAD/Lipid/HTN: Follows with Dr. Johansen, Cardio. Pt also follows with Vascular. No chest pains,dizziness, or SOB. Taking Zetia 10 mg daily, Plavix 75 mg daily, Eliquis 5 mg BID, Norvasc 10 mg, half pill BID, Lipitor 40 mg daily and Amiodarone 100 mg daily if heart rate is over 40. Recent labs showed elevated BNP of 345; HCTZ added. Pulm: Follows with Board [facility] Dr. Ellis at [facility]. Pt had Sleep study test done in Sep; did not feel that he needed CPAP. Uses Oxygen prn if below 0% Eli states that pt can hold her hand and walk. Always trying to do better. His goal is to walk at his grand daughter's graduation. Past medical history, appointments, medications, allergies reviewed. Previous Medical History PAST MEDICAL HISTORY Diagnosis Date Acute cerebral infarction (HCC) left Aneurysm (HCC) Atrial fibrillation (HCC) 11/2016 CAD (coronary artery disease) Carotid stenosis Dysphasia Hyperglycemia Hypertension PVD (peripheral vascular disease) (HCC) Respiratory failure (HCC) hypoxic-ventilator dependent Stroke (cerebrum) (HCC) Tobacco abuse Previous Surgical History PAST SURGICAL HISTORY Procedure Laterality Date CABG (5) VENOUS GRAFTS & ARTERIAL GRAFT(S) 10/30/2016 CABG CONSULT 10/30/2016 multi vessel HEART CATHETERIZATION 09/17/2016 TRACHEOSTOMY HX Family History FAMILY HISTORY Problem Relation Age of Onset Heart Mother CO in her 70s, pacemaker Diabetes Mother Stroke Father other (AAA) Father other (CAD) Brother Hypertension Brother Patient Allergies ALLERGIES Allergen Reactions Sulfate Salt Hives Zpak [Azithromycin] Hives Lisinopril Swelling Lip swelling after starting lisinopril. Current Medications Current Outpatient Medications on File Prior to Visit Medication Sig LORazepam (ATIVAN) 0.5 mg TAKE ONE (1) TABLET BY MOUTH TWICE DAILY baclofen (LIORESAL) 10 mg tablet Take 0.5 tablets by mouth three times daily. polyethylene glycol 3350 (MIRALAX, GLYCOLAX) 17 gram/dose powder Use as directed for Miralax / Gatorade Bowel Prep Kit Gatorade Sports Drink Use as directed for Miralax / Gatorade Bowel Prep Kit Bisacodyl (DULCOLAX) 5 mg tab Use as directed for Miralax / Gatorade Bowel Prep Kit hydroCHLOROthiazide (HYDRODIURIL, ESIDRIX) 12.5 mg tablet Take 1 tablet by mouth once daily. busPIRone (BUSPAR) 10 mg tablet Take 1 tablet by mouth three times daily. traZODone (DESYREL) 100 mg tablet Take 1 tablet by mouth daily at bedtime. fluticasone (FLONASE) 50 mcg/actuation nasal spray Use 1 [place] in each nostril twice daily. Rinse mouth after use. potassium chloride (K-TAB) 10 mEq tablet Take 2 tablets by mouth three times daily. benzonatate (TESSALON PERLES) 100 mg capsule Take 1 capsule by mouth three times daily as needed for cough. (Patient not taking: Reported on 10/02/2021 ) albuterol (PROVENTIL) 2.5 mg /3 mL (0.083 %) nebulizer solution Use 3 mL via nebulizer every 4 hours as needed for wheezing/shortness of breath. Use over 5-15minutes. Benzonatate 200 mg capsule Take 1 capsule by mouth three times daily as needed. (Patient not taking: Reported on 10/02/2021 ) ezetimibe (ZETIA) 10 mg tablet Take 1 tablet by mouth once daily. sildenafil (VIAGRA) 50 mg tablet Take one pill 30-60 minutes prior to sexual activity as needed (Patient not taking: Reported on 10/02/2021 ) escitalopram oxalate (LEXAPRO) 20 mg tablet Take 1 tablet by mouth once daily. famotidine (PEPCID) 20 mg tablet Take 1 tablet by mouth at bedtime as needed. clopidogrel (PLAVIX) 75 mg tablet Take 1 tablet by mouth once daily. apixaban (ELIQUIS) 5 mg tab(s) TAKE ONE (1) TABLET BY MOUTH TWICE DAILY amLODIPine (NORVASC) 10 mg tablet Take 1/2 tablet twice daily atorvastatin (LIPITOR) 40 mg tablet Take 1 tablet by mouth once daily. multivitamin tablet Take 1 tablet by mouth once daily. amiodarone (PACERONE) 100 mg tablet Take 1 tablet by mouth once daily. Do not take if heart rate isless than 40 clotrimazole-betamethasone (LOTRISONE) cream Apply to affected area twice daily. albuterol HFA (PROVENTIL HFA, VENTOLIN HFA) 90 mcg/actuation inhaler Inhale 2 Puffs as instructed every 4 hours as needed for Wheezing/Shortness of Breath. metoprolol tartrate, short acting, (LOPRESSOR) 25 mg tablet Take 0.5 tablets by mouth twice daily. COMPOUNDED PRESCRIPTION Right arm wedge. Disp #1. Use as directed to keep right arm elevated. Blood Pressure Monitor kit 1 application twice daily. Measure patient for correct size. Patient needs cuff for left arm readings. COMPOUNDED PRESCRIPTION Articulating AFO foot brace for right leg. Send to [employer]. Dx: I63.9 COMPOUNDED PRESCRIPTION EMBER WALKER DX I63.9 weight 162 # Diaper,Brief, Adult,Disposable (DEPEND REAL FIT BRIEF MEN L/XL) misc 1 Each as needed. Blood Pressure Monitor kit 1 Kit once daily. Please measure patient for correct size. No current facility-administered medications on file prior to visit. Social History Social History Tobacco Use Smoking status: Former Smoker Years: 45.00 Types: Cigarettes Quit date: 07/08/2016 Years since quittin.3 Smokeless tobacco: Never Used Tobacco comment: 07/08/2016 Vaping Use Vaping Use: Never used Substance Use Topics Alcohol use: No Drug use: Never EXAM: There were no vitals taken for this visit. Health Maintenance List ABDOMINAL AORTIC ANEURYSM SCREENING Never done SPIROMETRY Never done DTAP,TDAP,TD(1 - Tdap) Never done SHINGRIX VACCINE(1 of 2) Never done PROSTATE CANCER SCREENING DISCUSSION due on 06/03/2015 PNEUMOVAX AGE 65 AND OVER WITH 5YR LOOKBACK(1) Never done ADVANCE DIRECTIVE DISCUSSION Never done HEPATITIS C SCREENING due on 11/03/2021 DEPRESSION SCREENING due on 02/03/2022 COLORECTAL CANCER SCREENING due on 09/11/2022 ANNUAL PCP TEAM CHRONIC DISEASE VISIT due on 09/12/2022 LDL CHOLESTEROL due on 10/02/2022 BP CONTROLLED (<130/80) due on 10/04/2022 DIABETES SCREEN due on 10/02/2024 LIPID SCREEN due on 10/02/2026 INFLUENZA Completed COVID-19 VACCINE Completed MENINGOCOCCAL CONJUGATE Aged Out Data reviewed Appointment on 10/02/2021 Component Date Value Protein, Total 10/02/2021 7.1 Albumin 10/02/2021 4.1 Calcium, Total 10/02/2021 9.4 Bilirubin, Total 10/02/2021 0.7 Alkaline Phosphatase 10/02/2021 135 (A) AST 10/02/2021 18 ALT 10/02/2021 16 Glucose 10/02/2021 99 BUN 10/02/2021 12 Creatinine 10/02/2021 1.07 Sodium 10/02/2021 140 Potassium 10/02/2021 4.2 Chloride 10/02/2021 101 CO2 10/02/2021 27 Anion Gap 10/02/2021 12 Estimated Glomerular Marco Antonio* 10/02/2021 77 WBC 10/02/2021 10.88 RBC 10/02/2021 4.38 Hemoglobin 10/02/2021 13.1 Hematocrit 10/02/2021 39.8 MCV 10/02/2021 90.9 MCH 10/02/2021 29.9 MCHC 10/02/2021 32.9 RDW-CV 10/02/2021 14.4 Platelet Count 10/02/2021 307 MPV 10/02/2021 10.3 Neut% 10/02/2021 65.3 Abs Neut 10/02/2021 7.10 Lymph% 10/02/2021 19.2 Abs Lymph 10/02/2021 2.09 [place]% 10/02/2021 10.2 Abs [place] 10/02/2021 1.11 (A) Eosin% 10/02/2021 4.0 Abs Eosin 10/02/2021 0.43 Baso% 10/02/2021 0.7 Abs Baso 10/02/2021 0.08 Immature Gran % 10/02/2021 0.6 Abs Immature Gran 10/02/2021 0.07 NRBC 10/02/2021 0.0 Absolute nRBC 10/02/2021 <0.01 Diff Type 10/02/2021 Auto Cholesterol, Total 10/02/2021 141 Triglyceride 10/02/2021 173 (A) HDL Cholesterol 10/02/2021 40 Non HDL Cholesterol 10/02/2021 101 Fasting Time 10/02/2021 12 VLDL Cholesterol 10/02/2021 35 (A) TC:HDL Ratio 10/02/2021 3.53 LDL Cholesterol 10/02/2021 66 LDL:HDL Ratio 10/02/2021 1.65 NT Pro BNP 10/02/2021 354 (A) ASSESSMENT/PLAN: 1. Right hemiplegia (HCC) - ICD9: 342.90, ICD10: G81.91 (primary diagnosis) 2. Paroxysmal atrial fibrillation (HCC) - ICD9: 427.31, ICD10: I48.0 3. Coronary artery disease involving [place] coronary artery of [place] heart without angina pectoris- ICD9: 414.01, ICD10: I25.10 - COMP METABOLIC PANEL - NT PRO BNP 4. Essential hypertension - ICD9: 401.9, ICD10: I10 - COMP METABOLIC PANEL - NT PRO BNP 5. Hyperlipidemia, unspecified hyperlipidemia type - ICD9: 272.4, ICD10: E78.5 6. Cerebrovascular accident (CVA), unspecified mechanism (HCC) - ICD9: 434.91, ICD10: I63.9 7. Chronic insomnia - ICD9: 780.52, ICD10: F51.04 8. Anxiety - ICD9: 300.00, ICD10: F41.9 9. Shortness of breath - ICD9: 786.05, ICD10: R06.02 - NT PRO BNP Continue current medications. Follow up in 3 months with labs prior 11-20 minutes of time spent on phone call Jaci Arroyo MD documented in this encounterProtestant Hospital03-29-2022 Miscellaneous Notes* Telephone Encounter - Monica Cruz Ma - 10/31/2021 3:30 PM EDT Order faxed. Monica Cruz Ma * Telephone Encounter - Jaci Arroyo MD - 10/31/2021 2:07 PM EDT Noted Rx for splint printed Jaci Arroyo MD * Telephone Encounter - Jayde Laughlin RN - 10/31/2021 11:53 AM EDT Ramandeep OT from [facility] calls to report that she does not think that patient needs OT anymore.Patient is doing well and he is at baseline. Ramandeep reports that patient would benefit from having a new splint for his right hand. Ramandeep asking ifprovider can write an order for right resting hand splint. Ramandeep states this order can be faxed to Parking Control Officer Attention Fabián . Please review and advise, Jayde Laughlin RN documented in this encounterProtestant Hospital03-22-2022 Miscellaneous Notes* Telephone Encounter - Alvin Galindo - 10/24/2021 4:27 PM EDT 12-25-2021 Colon Michel * Telephone Encounter - Alvin Galindo - 10/04/2021 2:38 PM EST 12-22-2021 Colon EGD Michel , Taking revised Mirlalax prep documented in this encounter[address] History of Past illness Narrative* Problem Noted Date Resolved Date Elevated blood pressure 06/06/2010 03/20/20 19 documented as of this encounter (statuses as of 10/31/2021) [address] History of Past illness Narrative* Problem Noted Date Resolved Date Elevated blood pressure 06/06/2010 03/20/20 19 documented as of this encounter (statuses as of 11/07/2021) [address] History of Past illness Narrative* Problem Noted Date Resolved Date Elevated blood pressure 06/06/2010 03/20/20 19 documented as of this encounter (statuses as of 11/22/2021) [address] History of Past illness Narrative* Problem Noted Date Resolved Date Elevated blood pressure 06/06/2010 03/20/20 19 documented as of this encounter (statuses as of 12/01/2021) [address] History of Past illness Narrative* Problem Noted Date Resolved Date Elevated blood pressure 06/06/2010 03/20/20 19 documented as of this encounter (statuses as of 12/13/2021) [address] History of Past illness Narrative* Problem Noted Date Resolved Date Elevated blood pressure 06/06/2010 03/20/20 19 documented as of this encounter (statuses as of 12/18/2021) [address] History of Past illness Narrative* Problem Noted Date Resolved Date Elevated blood pressure 06/06/2010 03/20/20 19 documented as of this encounter (statuses as of 01/02/2022) [address] History of Past illness Narrative* Problem Noted Date Resolved Date Elevated blood pressure 06/06/2010 03/20/20 19 documented as of this encounter (statuses as of 01/18/2022) [address] History of Past illness Narrative* Problem Noted Date Resolved Date Elevated blood pressure 06/06/2010 03/20/20 19 documented as of this encounter (statuses as of 01/24/2022) [address] History of Past illness Narrative* Problem Noted Date Resolved Date Elevated blood pressure 06/06/2010 03/20/20 19 documented as of this encounter (statuses as of 01/31/2022) [place] [id number] History of Past illness Narrative* Problem Noted Date Resolved Date Elevated blood pressure 06/06/2010 03/20/20 19 documented as of this encounter (statuses as of 02/19/2022) [address] History of Past illness Narrative* Problem Noted Date Resolved Date Elevated blood pressure 06/06/2010 03/20/20 19 documented as of this encounter (statuses as of 03/05/2022) [address] History of Past illness Narrative* Problem Noted Date Resolved Date Elevated blood pressure 06/06/2010 03/20/20 19 documented as of this encounter (statuses as of 03/05/2022) [address] History of Past illness Narrative* Problem Noted Date Resolved Date Elevated blood pressure 06/06/2010 03/20/20 19 documented as of this encounter (statuses as of 03/09/2022) [address] History of Past illness Narrative* Problem Noted Date Resolved Date Elevated blood pressure 06/06/2010 03/20/20 19 documented as of this encounter (statuses as of 03/23/2022) [place] [id number] History of Past illness Narrative* Problem Noted Date Resolved Date Elevated blood pressure 06/06/2010 03/20/20 19 documented as of this encounter (statuses as of 04/12/2022) [address] History of Past illness Narrative* Problem Noted Date Resolved Date Elevated blood pressure 06/06/2010 03/20/20 19 documented as of this encounter (statuses as of 04/13/2022) [address] History of Past illness Narrative* Problem Noted Date Resolved Date Elevated blood pressure 06/06/2010 03/20/20 19 documented as of this encounter (statuses as of 04/19/2022) [address] History of Past illness Narrative* Problem Noted Date Resolved Date Elevated blood pressure 06/06/2010 03/20/20 19 documented as of this encounter (statuses as of 05/03/2022) [address] History of Past illness Narrative* Problem Noted Date Resolved Date Elevated blood pressure 06/06/2010 03/20/20 19 documented as of this encounter (statuses as of 05/07/2022) [place] [id number] History of Past illness Narrative* Problem Noted Date Resolved Date Elevated blood pressure 06/06/2010 03/20/20 19 documented as of this encounter (statuses as of 05/07/2022) [facility] History of Past illness Narrative* Problem Noted Date Resolved Date Elevated blood pressure 06/06/2010 03/20/20 19 documented as of this encounter (statuses as of 05/10/2022) [address] History of Past illness Narrative* Problem Noted Date Resolved Date Elevated blood pressure 06/06/2010 03/20/20 19 documented as of this encounter (statuses as of 05/10/2022) [facility] History of Past illness Narrative* Problem Noted Date Resolved Date Elevated blood pressure 06/06/2010 03/20/20 19 documented as of this encounter (statuses as of 05/31/2022) [facility] History of Past illness Narrative* Problem Noted Date Resolved Date Elevated blood pressure 06/06/2010 03/20/20 19 documented as of this encounter (statuses as of 06/08/2022) [facility] History of Past illness Narrative* Problem Noted Date Resolved Date Elevated blood pressure 06/06/2010 03/20/20 19 documented as of this encounter (statuses as of 07/04/2022) [address] History of Past illness Narrative* Problem Noted Date Resolved Date Elevated blood pressure 06/06/2010 03/20/20 19 documented as of this encounter (statuses as of 07/16/2022) [address] History of Past illness Narrative* Problem Noted Date Resolved Date Elevated blood pressure 06/06/2010 03/20/20 19 documented as of this encounter (statuses as of 07/24/2022) [facility] History of Past illness Narrative* Problem Noted Date Resolved Date Elevated blood pressure 06/06/2010 03/20/20 19 documented as of this encounter (statuses as of 07/28/2022) [place] [address] History of Past illness Narrative* Problem Noted Date Resolved Date Elevated blood pressure 06/06/2010 03/20/20 19 documented as of this encounter (statuses as of 08/09/2022) [place] [address] History of Past illness Narrative* Problem Noted Date Resolved Date Elevated blood pressure 06/06/2010 03/20/20 19 documented as of this encounter (statuses as of 08/10/2022) [place] [address] History of Past illness Narrative* Problem Noted Date Resolved Date Elevated blood pressure 06/06/2010 03/20/20 19 documented as of this encounter (statuses as of 08/16/2022) [address] History of Past illness Narrative* Problem Noted Date Resolved Date Elevated blood pressure 06/06/2010 03/20/20 19 documented as of this encounter (statuses as of 08/17/2022) [address] History of Past illness Narrative* Problem Noted Date Resolved Date Elevated blood pressure 06/06/2010 03/20/20 19 documented as of this encounter (statuses as of 08/20/2022) [address] History of Past illness Narrative* Problem Noted Date Resolved Date Elevated blood pressure 06/06/2010 03/20/20 19 documented as of this encounter (statuses as of 08/22/2022) [address] History of Past illness Narrative* Problem Noted Date Resolved Date Elevated blood pressure 06/06/2010 03/20/20 19 documented as of this encounter (statuses as of 08/23/2022) [address] History of Past illness Narrative* Problem Noted Date Resolved Date Elevated blood pressure 06/06/2010 03/20/20 19 documented as of this encounter (statuses as of 08/29/2022) [address] History of Past illness Narrative* Problem Noted Date Resolved Date Elevated blood pressure 06/06/2010 03/20/20 19 documented as of this encounter (statuses as of 08/30/2022) [address] History of Past illness Narrative* Problem Noted Date Resolved Date Elevated blood pressure 06/06/2010 03/20/20 19 documented as of this encounter (statuses as of 09/03/2022) [address] History of Past illness Narrative* Problem Noted Date Resolved Date Elevated blood pressure 06/06/2010 03/20/20 19 documented as of this encounter (statuses as of 09/05/2022) [address] History of Past illness Narrative* Problem Noted Date Resolved Date Elevated blood pressure 06/06/2010 03/20/20 19 documented as of this encounter (statuses as of 09/06/2022) [address] History of Past illness Narrative* Problem Noted Date Resolved Date Elevated blood pressure 06/06/2010 03/20/20 19 documented as of this encounter (statuses as of 09/07/2022) [address] History of Past illness Narrative* Problem Noted Date Resolved Date Elevated blood pressure 06/06/2010 03/20/20 19 documented as of this encounter (statuses as of 09/10/2022) [address] History of Past illness Narrative* Problem Noted Date Resolved Date Elevated blood pressure 06/06/2010 03/20/20 19 documented as of this encounter (statuses as of 09/11/2022) [address] History of Past illness Narrative* Problem Noted Date Resolved Date Elevated blood pressure 06/06/2010 03/20/20 19 documented as of this encounter (statuses as of 09/13/2022) [address] History of Past illness Narrative* Problem Noted Date Resolved Date Elevated blood pressure 06/06/2010 03/20/20 19 documented as of this encounter (statuses as of 09/17/2022) [address] History of Past illness Narrative* Problem Noted Date Resolved Date Elevated blood pressure 06/06/2010 03/20/20 19 documented as of this encounter (statuses as of 09/18/2022) [address] History of Past illness Narrative* Problem Noted Date Resolved Date Elevated blood pressure 06/06/2010 03/20/20 19 documented as of this encounter (statuses as of 09/28/2022) [address] History of Past illness Narrative* Problem Noted Date Resolved Date Elevated blood pressure 06/06/2010 03/20/20 19 documented as of this encounter (statuses as of 10/02/2022) [address] History of Past illness Narrative* Problem Noted Date Resolved Date Elevated blood pressure 06/06/2010 03/20/20 19 documented as of this encounter (statuses as of 10/04/2022) [address] History of Past illness Narrative* Problem Noted Date Resolved Date Elevated blood pressure 06/06/2010 03/20/20 19 documented as of this encounter (statuses as of 10/05/2022) [address] History of Past illness Narrative* Problem Noted Date Resolved Date Elevated blood pressure 06/06/2010 03/20/20 19 documented as of this encounter (statuses as of 10/05/2022) [address] History of Past illness Narrative* Problem Noted Date Resolved Date Elevated blood pressure 06/06/2010 03/20/20 19 documented as of this encounter (statuses as of 10/12/2022) [address] History of Past illness Narrative* Problem Noted Date Resolved Date Elevated blood pressure 06/06/2010 03/20/20 19 documented as of this encounter (statuses as of 10/15/2022) [address] History of Past illness Narrative* Problem Noted Date Resolved Date Elevated blood pressure 06/06/2010 03/20/20 19 documented as of this encounter (statuses as of 10/15/2022) [place] [address] History of Past illness Narrative* Problem Noted Date Resolved Date Elevated blood pressure 06/06/2010 03/20/20 19 documented as of this encounter (statuses as of 10/16/2022) [address] History of Past illness Narrative* Problem Noted Date Resolved Date Elevated blood pressure 06/06/2010 03/20/20 19 documented as of this encounter (statuses as of 10/22/2022) [address] History of Past illness Narrative* Problem Noted Date Resolved Date Elevated blood pressure 06/06/2010 03/20/20 19 documented as of this encounter (statuses as of 10/30/2022) [address] History of Past illness Narrative* Problem Noted Date Resolved Date Elevated blood pressure 06/06/2010 03/20/20 19 documented as of this encounter (statuses as of 11/01/2022) [address] History of Past illness Narrative* Problem Noted Date Resolved Date Elevated blood pressure 06/06/2010 03/20/20 19 documented as of this encounter (statuses as of 11/05/2022) [place] [address] History of Past illness Narrative* Problem Noted Date Resolved Date Elevated blood pressure 06/06/2010 03/20/20 19 documented as of this encounter (statuses as of 11/06/2022) [place] [address] History of Past illness Narrative* Problem Noted Date Resolved Date Elevated blood pressure 06/06/2010 03/20/20 19 documented as of this encounter (statuses as of 11/07/2022) [address] History of Past illness Narrative* Problem Noted Date Resolved Date Elevated blood pressure 06/06/2010 03/20/20 19 documented as of this encounter (statuses as of 11/09/2022) [address] History of Past illness Narrative* Problem Noted Date Resolved Date Elevated blood pressure 06/06/2010 03/20/20 19 documented as of this encounter (statuses as of 11/13/2022) [address] History of Past illness Narrative* Problem Noted Date Resolved Date Elevated blood pressure 06/06/2010 03/20/20 19 documented as of this encounter (statuses as of 11/15/2022) [place] [address] History of Past illness Narrative* Problem Noted Date Resolved Date Elevated blood pressure 06/06/2010 03/20/20 19 documented as of this encounter (statuses as of 11/16/2022) [address] History of Past illness Narrative* Problem Noted Date Resolved Date Elevated blood pressure 06/06/2010 03/20/20 19 documented as of this encounter (statuses as of 11/17/2022) [address] History of Past illness Narrative* Problem Noted Date Resolved Date Elevated blood pressure 06/06/2010 03/20/20 19 documented as of this encounter (statuses as of 11/17/2022) [address] History of Past illness Narrative* Problem Noted Date Resolved Date Elevated blood pressure 06/06/2010 03/20/20 19 documented as of this encounter (statuses as of 11/18/2022) [address] History of Past illness Narrative* Problem Noted Date Resolved Date Elevated blood pressure 06/06/2010 03/20/20 19 documented as of this encounter (statuses as of 11/19/2022) [address] History of Past illness Narrative* Problem Noted Date Resolved Date Elevated blood pressure 06/06/2010 03/20/20 19 documented as of this encounter (statuses as of 11/20/2022) [address] History of Past illness Narrative* Problem Noted Date Resolved Date Elevated blood pressure 06/06/2010 03/20/20 19 documented as of this encounter (statuses as of 11/26/2022) [address] History of Past illness Narrative* Problem Noted Date Resolved Date Elevated blood pressure 06/06/2010 03/20/20 19 documented as of this encounter (statuses as of 11/28/2022) [address] History of Past illness Narrative* Problem Noted Date Resolved Date Elevated blood pressure 06/06/2010 03/20/20 19 documented as of this encounter (statuses as of 11/29/2022) [address] History of Past illness Narrative* Problem Noted Date Resolved Date Elevated blood pressure 06/06/2010 03/20/20 19 documented as of this encounter (statuses as of 12/03/2022) [address] History of Past illness Narrative* Problem Noted Date Resolved Date Elevated blood pressure 06/06/2010 03/20/20 19 documented as of this encounter (statuses as of 12/03/2022) [address] History of Past illness Narrative* Problem Noted Date Resolved Date Elevated blood pressure 06/06/2010 03/20/20 19 documented as of this encounter (statuses as of 12/05/2022) [address] History of Past illness Narrative* Problem Noted Date Resolved Date Elevated blood pressure 06/06/2010 03/20/20 19 documented as of this encounter (statuses as of 12/05/2022) [address] History of Past illness Narrative* Problem Noted Date Resolved Date Elevated blood pressure 06/06/2010 03/20/20 19 documented as of this encounter (statuses as of 12/06/2022) [address] History of Past illness Narrative* Problem Noted Date Resolved Date Elevated blood pressure 06/06/2010 03/20/20 19 documented as of this encounter (statuses as of 12/06/2022) [place] [address] History of Past illness Narrative* Problem Noted Date Resolved Date Elevated blood pressure 06/06/2010 03/20/20 19 documented as of this encounter (statuses as of 12/06/2022) [place] [address] History of Past illness Narrative* Problem Noted Date Resolved Date Elevated blood pressure 06/06/2010 03/20/20 19 documented as of this encounter (statuses as of 12/11/2022) [address] History of Past illness Narrative* Problem Noted Date Resolved Date Elevated blood pressure 06/06/2010 03/20/20 19 documented as of this encounter (statuses as of 12/12/2022) [address] History of Past illness Narrative* Problem Noted Date Resolved Date Elevated blood pressure 06/06/2010 03/20/20 19 documented as of this encounter (statuses as of 01/21/2023) [place] [address] History of Past illness Narrative* Problem Noted Date Resolved Date Elevated blood pressure 06/06/2010 03/20/20 19 documented as of this encounter (statuses as of 01/29/2023) [place] [address] History of Past illness Narrative* Problem Noted Date Diagnosed Date Resolved Date Elevated blood pressure 06/06/201003/05 documented as of this encounter (statuses as of 02/15/2023) [place] [address] History of Past illness Narrative* Problem Noted Date Diagnosed Date Resolved Date Elevated blood pressure 06/06/201003/05 documented as of this encounter (statuses as of 02/15/2023) [place] [address] History of Past illness Narrative* Problem Noted Date Diagnosed Date Resolved Date Elevated blood pressure 06/06/201003/05 documented as of this encounter (statuses as of 02/16/2023) [place] [address] History of Past illness Narrative* Problem Noted Date Diagnosed Date Resolved Date Elevated blood pressure 06/06/201003/05 documented as of this encounter (statuses as of 02/20/2023) [place] [address] History of Past illness Narrative* Problem Noted Date Diagnosed Date Resolved Date Elevated blood pressure 06/06/201003/05 documented as of this encounter (statuses as of 02/22/2023) [facility] note* Diagnosis Right hemiplegia (HCC)- Primary Hemiplegia, unspecified, affecting unspecified side documented in this encounter [facility] note* Diagnosis Right hemiplegia (HCC)- Primary Hemiplegia, unspecified, affecting unspecified side Paroxysmal atrial fibrillation (HCC) Atrial fibrillation Coronary artery disease involving [place] coronary artery of [place] heart without angina pectoris Essential hypertension Unspecified essential hypertension Hyperlipidemia, unspecified hyperlipidemia type Cerebrovascular accident (CVA), unspecified mechanism (HCC) Chronic insomnia Insomnia, unspecified Anxiety Anxiety state, unspecified Shortness of breath Shortness of breath documented in this encounter [facility] note* Diagnosis Onset Date Resolution Status Gait disturbance acute Dehydration resolved Mass of upper lobe of 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 [facility] Work Phone: evaluation note* Diagnosis Fungal dermatitis- Primary Dermatomycosis, unspecified documented in this encounter [facility] note* Diagnosis Anxiety Anxiety state, unspecified documented in this encounter [facility] note* Diagnosis Anxiety Anxiety state, unspecified Hyperlipidemia, unspecified hyperlipidemia type documented in this encounter [facility] note* Diagnosis Special screening for malignant neoplasm of colon- Primary Special screening for malignant neoplasms, colon documented in this encounter [facility] note* Diagnosis Hyperlipidemia, unspecified hyperlipidemia type- Primary Essential hypertension Unspecified essential hypertension Shortness of breath Elevated glucose Other abnormal glucose documented in this encounter [facility] note* Diagnosis Peripheral vascular disease, unspecified (HCC)- Primary Peripheral vascular disease, unspecified Foot drop, right Other acquired deformity of ankle and foot documented in this encounter [facility] note* Diagnosis Cerebrovascular accident (CVA), unspecified mechanism (HCC)- Primary Dysphasia Other speech disturbance documented in this encounter [facility] note* Diagnosis Anxiety Anxiety state, unspecified documented in this encounter [facility] noteNo assessment information availableWTog[facility] Work [facility]* Diagnosis Aphasia as late effect of cerebrovascular accident- Primary Aphasia, late effect of cerebrovascular disease Right hemiplegia (HCC) Hemiplegia, unspecified, affecting unspecified side Cerebrovascular accident (CVA), unspecified mechanism (HCC) Coronary artery disease involving [place] coronary artery of [place] heart without angina pectoris Essential hypertension Unspecified essential hypertension Paroxysmal atrial fibrillation (HCC) Atrial fibrillation Anxiety Anxiety state, unspecified Dysphasia Other speech disturbance [facility] [place] [facility]* Diagnosis Anxiety Anxiety state, unspecified [facility] [place] [facility]* Diagnosis Onset Date Resolution Status 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, cigarettes, in remission acute [facility] Work Phone: Evaluation note* Diagnosis Aphasia as late effect of cerebrovascular accident- Primary Aphasia, late effect of cerebrovascular disease DARON (obstructive sleep apnea) Obstructive sleep apnea (adult) (pediatric) Chronic insomnia Insomnia, unspecified [facility] [place] [facility]* Diagnosis Right hemiplegia (HCC)- Primary Hemiplegia, unspecified, affecting unspecified side COPD with exacerbation (HCC) Obstructive chronic bronchitis with exacerbation [facility] [place] [facility]* Diagnosis Difficulty sleeping Sleep disturbance, unspecified [facility] [place] [facility]* Diagnosis Balanitis- Primary Balanoposthitis [facility] [place] [facility]* Diagnosis Onset Date Resolution Status 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, cigarettes, in remission acute Hypoxia acute [facility] Work Phone: Evaluation note* Diagnosis Acute cystitis without hematuria- Primary Acute cystitis Balanitis Balanoposthitis [facility] [place] [facility]* Diagnosis Coronary artery disease involving [place] coronary artery of [place] heart without angina pectoris- Primary Essential hypertension Unspecified essential hypertension Hyperlipidemia, unspecified hyperlipidemia type Occlusion of left carotid artery Occlusion and stenosis of carotid artery without mention of cerebral infarction [facility] [place] [facility]* Diagnosis Occlusion of left carotid artery- Primary Occlusion and stenosis of carotid artery without mention of cerebral infarction [facility] [place] [facility]* Diagnosis Aphasia as late effect of cerebrovascular accident- Primary Aphasia, late effect of cerebrovascular disease Chronic insomnia Insomnia, unspecified Right hemiplegia (HCC) Hemiplegia, unspecified, affecting unspecified side Paroxysmal atrial fibrillation (HCC) Atrial fibrillation Essential hypertension Unspecified essential hypertension Anxiety Anxiety state, unspecified [facility] [place] [facility]* Diagnosis Essential hypertension Unspecified essential hypertension [facility] [place] [facility]* Diagnosis Primary hypertension- Primary Unspecified essential hypertension documented in this encounter [facility] note* Diagnosis Cerebrovascular accident (CVA), unspecified mechanism (HCC)- Primary Right hemiplegia (HCC) Hemiplegia, unspecified, affecting unspecified side Aphasia as late effect of cerebrovascular accident Aphasia, late effect of cerebrovascular disease documented in this encounter [facility] note* Diagnosis Cerebrovascular accident (CVA), unspecified mechanism (HCC)- Primary Right hemiplegia (HCC) Hemiplegia, unspecified, affecting unspecified side Aphasia as late effect of cerebrovascular accident Aphasia, late effect of cerebrovascular disease documented in this encounter [facility] note* Diagnosis Acute cystitis without hematuria- Primary Acute cystitis documented in this encounter [facility] note* Diagnosis Coronary artery disease involving [place] coronary artery of [place] heart without angina pectoris- Primary Paroxysmal atrial fibrillation (HCC) Atrial fibrillation Essential hypertension Unspecified essential hypertension Mixed hyperlipidemia Bradycardia Other specified cardiac dysrhythmias Occlusion of left carotid artery Occlusion and stenosis of carotid artery without mention of cerebral infarction documented in this encounter [facility] note* Diagnosis Chronic insomnia Insomnia, unspecified documented in this encounter [facility] note* Diagnosis Onset Date Resolution Status Hypoxia acute Pneumonia acute Aphasia acute Community acquired pneumonia acute History of stroke acute Hypoxia acute [facility] Work Phone: Evaluation note* Diagnosis Bacterial pneumonia- Primary Bacterial pneumonia, unspecified Right hemiplegia (HCC) Hemiplegia, unspecified, affecting unspecified side Essential hypertension Unspecified essential hypertension Bradycardia Other specified cardiac dysrhythmias Anxiety Anxiety state, unspecified Chronic insomnia Insomnia, unspecified Shortness of breath COPD with exacerbation (HCC) Obstructive chronic bronchitis with exacerbation Aneurysm (HCC) Aneurysm of unspecified site Tracheostomy status (HCC) Tracheostomy status documented in this encounter [facility] note* Diagnosis Acute cough- Primary Anxiety Anxiety state, unspecified Coronary artery disease involving [place] coronary artery of [place] heart without angina pectoris Paroxysmal atrial fibrillation (HCC) Atrial fibrillation Right hemiplegia (HCC) Hemiplegia, unspecified, affecting unspecified side Essential hypertension Unspecified essential hypertension Mixed hyperlipidemia Tracheostomy status (HCC) Tracheostomy status Aneurysm (HCC) Aneurysm of unspecified site documented in this encounter [facility] note* Diagnosis Right hemiplegia (HCC)- Primary Hemiplegia, unspecified, affecting unspecified side Cerebrovascular accident (CVA), unspecified mechanism (HCC) Aphasia as late effect of cerebrovascular accident Aphasia, late effect of cerebrovascular disease documented [facility] this [facility] [place] [facility]* Diagnosis Aphasia as late effect of cerebrovascular accident- Primary Aphasia, late effect of cerebrovascular disease Cerebrovascular accident (CVA), unspecified mechanism (HCC) documented [facility] [place] [facility]* Diagnosis Cerebrovascular accident (CVA), unspecified mechanism (HCC)- Primary documented [facility] this [facility] [place] [facility]* Diagnosis Hyperlipidemia, unspecified hyperlipidemia type documented in this encounter [facility] note* Diagnosis Bacterial pneumonia Bacterial pneumonia, unspecified COPD with exacerbation (HCC) Obstructive chronic bronchitis with exacerbation documented [facility] this [facility] [place] [facility]* Diagnosis Anxiety- Primary Anxiety state, unspecified Essential hypertension Unspecified essential hypertension Hyperlipidemia, unspecified hyperlipidemia type Coronary artery disease involving [place] coronary artery of [place] heart without angina pectoris Cerebrovascular accident (CVA), unspecified mechanism (HCC) Chronic insomnia Insomnia, unspecified Right hemiplegia (HCC) Hemiplegia, unspecified, affecting unspecified side Aphasia as late effect of cerebrovascular accident Aphasia, late effect of cerebrovascular disease Chronic obstructive pulmonary disease, unspecified COPD type (HCC) Left flank pain Abdominal pain, unspecified site Cough, unspecified type Elevated serum creatinine Other nonspecific findings on examination of blood Elevated glucose Other abnormal glucose Respiratory failure, unspecified chronicity, unspecified whether with hypoxia or hypercapnia (HCC) Stage 3a chronic kidney disease (HCC) Aneurysm (HCC) Aneurysm of unspecified site documented in this encounter [facility] note* Diagnosis Anxiety Anxiety state, unspecified [facility] [place] [facility]* Diagnosis Chronic obstructive pulmonary disease, unspecified COPD type (HCC) documented [facility] this [facility] [place] [facility]* Diagnosis Pulmonary emphysema, unspecified emphysema type (HCC) documented in this encounter [facility] [place] [facility]* Diagnosis Centrilobular emphysema (HCC)- Primary Other emphysema Former cigarette smoker Personal history of tobacco use, presenting hazards to health CVA, old, hemiparesis (HCC) Hemiplegia affecting unspecified side, late effect of cerebrovascular disease documented [facility] this [facility] [place] [facility]* Diagnosis Cervicalgia documented in this encounter [facility] [place] [facility]* Diagnosis Iron deficiency anemia due to chronic blood loss- Primary Iron deficiency anemia secondary to blood loss (chronic) documented [facility] [place] [facility]* Diagnosis Iron deficiency anemia due to chronic blood loss Iron deficiency anemia secondary to blood loss (chronic) [facility] Iron deficiency anemia due to chronic blood loss Iron deficiency anemia secondary to blood loss (chronic) [facility] Diagnosis Iron deficiency anemia due to chronic blood loss- Primary Iron deficiency anemia secondary to blood loss (chronic) Fall, subsequent encounter Right hemiplegia (HCC) Hemiplegia, unspecified, affecting unspecified side Aneurysm (HCC) Aneurysm of unspecified site Stage 3a chronic kidney disease (HCC) [facility] Diagnosis Iron deficiency anemia due to chronic blood loss- Primary Iron deficiency anemia secondary to blood loss (chronic) [facility]* Diagnosis Rectal bleeding- Primary Hemorrhage of rectum and anus [facility] Diagnosis Onychomycosis- Primary Dermatophytosis of nail Pain in toe of left foot Pain in limb Pain in toe of right foot Pain in limb [facility] Iron deficiency anemia due to chronic blood loss- Primary Iron deficiency anemia secondary to blood loss (chronic) [facility]* Diagnosis Essential hypertension- Primary Unspecified essential hypertension Anxiety Anxiety state, unspecified Depression, unspecified depression type Hyperlipidemia, unspecified hyperlipidemia type Elevated glucose Other abnormal glucose Cerebrovascular accident (CVA), unspecified mechanism (HCC) Right hemiplegia (HCC) Hemiplegia, unspecified, affecting unspecified side Aphasia as late effect of cerebrovascular accident Aphasia, late effect of cerebrovascular disease Coronary artery disease involving [place] coronary artery of [place] heart without angina pectoris Paroxysmal atrial fibrillation (HCC) Atrial fibrillation Iron deficiency anemia due to chronic blood loss Iron deficiency anemia secondary to blood loss (chronic) Erectile dysfunction, unspecified erectile dysfunction type Chronic obstructive pulmonary disease, unspecified COPD type (HCC) Need for vaccination Need for prophylactic vaccination and inoculation against unspecified single disease Stage 3 chronic kidney disease, unspecified whether stage 3a or 3b CKD (HCC) [facility] Diagnosis Iron deficiency anemia due to chronic blood loss Iron deficiency anemia secondary to blood loss (chronic) Rectal mass Other symptoms involving digestive system [facility] Diagnosis Iron deficiency anemia due to chronic blood loss Iron deficiency anemia secondary to blood loss (chronic) [facility]* Diagnosis Rectal mass- Primary Other symptoms involving digestive system [facility] [place] [facility]* Diagnosis 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 [facility] [place] [facility]* Diagnosis Cerebrovascular accident (CVA), unspecified mechanism (HCC)- Primary [facility] [place] [facility]* Diagnosis Paroxysmal atrial fibrillation (HCC)- Primary Atrial fibrillation Preoperative examination Preoperative examination, unspecified Rectal mass Other symptoms involving digestive system [facility] [place] [facility]* Diagnosis Occlusion of left carotid artery- Primary Occlusion and stenosis of carotid artery without mention of cerebral infarction Rectal mass Other symptoms involving digestive system [facility] [place] [facility]* Diagnosis Coronary artery disease involving [place] coronary artery of [place] heart without angina pectoris- Primary Paroxysmal atrial fibrillation (HCC) Atrial fibrillation Essential hypertension Unspecified essential hypertension Bradycardia Other specified cardiac dysrhythmias Mixed hyperlipidemia Occlusion of left carotid artery Occlusion and stenosis of carotid artery without mention of cerebral infarction Pre-operative cardiovascular examination Rectal mass Other symptoms involving digestive system [facility] [place] [facility]* Diagnosis Pre-op evaluation- Primary Preoperative examination, unspecified 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) Coronary artery disease involving [place] coronary artery of [place] heart without angina pectoris Paroxysmal atrial fibrillation (HCC) Atrial fibrillation Centrilobular emphysema (HCC) Other emphysema Rectal mass Other symptoms involving digestive system [facility] [place] [facility]* Diagnosis Rectal mass- Primary Other symptoms involving digestive system Rectal mass Other symptoms involving digestive system [facility] [place] [facility]* Diagnosis Difficulty sleeping Sleep disturbance, unspecified documented in this encounter [facility] note* Diagnosis Onset Date Resolution Status History of stroke acute Acute respiratory failure with hypoxia chronic Mixed 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, cigarettes, in remission chronic Bimalleolar fracture of right ankle acute Ankle fracture acute Bimalleolar fracture of right ankle acute Constipation acute Dysuria acute History of stroke acute Atherosclerosis of coronary artery without angina pectoris chronic Carotid artery disease chron ic HTN (hypertension) chronic [facility] Work Phone: Evaluation note* Diagnosis Centrilobular emphysema (HCC)- Primary Other emphysema Former smoker Personal history of tobacco use, presenting hazards to health Nocturnal hypoxemia Hypoxemia [facility] [place] [facility]* Diagnosis DARON (obstructive sleep apnea)- Primary Obstructive sleep apnea (adult) (pediatric) documented in this encounter [facility] [place] [facility]* Diagnosis 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 Right hemiplegia (HCC) Hemiplegia, unspecified, affecting unspecified side Chronic insomnia Insomnia, unspecified Mixed hyperlipidemia Essential hypertension Unspecified essential hypertension Coronary artery disease involving [place] coronary artery of [place] heart without angina pectoris Paroxysmal atrial fibrillation (HCC) Atrial fibrillation Centrilobular emphysema (HCC) Other emphysema Erectile dysfunction, unspecified erectile dysfunction type Anxiety Anxiety state, unspecified Stage 3 chronic kidney disease, unspecified whether stage 3a or 3b CKD (HCC) Aneurysm (HCC) Aneurysm of unspecified site documented in this [facility] [place] [facility]* Diagnosis Occlusion of left carotid artery- Primary Occlusion and stenosis of carotid artery without mention of cerebral infarction Subclavian artery stenosis, left (HCC) Atherosclerosis of other specified arteries documented in this encounter [facility] note* Diagnosis Onset Date Resolution Status Bimalleolar fracture of right ankle acute Ankle fracture acute Bimalleolar fracture of right ankle acute Constipation acute Dysuria acute History of stroke acute Atherosclerosis of coronary artery without angina pectoris chronic Carotid artery disease chron ic HTN (hypertension) chronic Bimalleolar fracture of right ankle acute Bimalleolar fracture of right ankle acute [facility] Work Phone: Evaluation note* Diagnosis 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 Right hemiplegia (HCC) Hemiplegia, unspecified, affecting unspecified side Dysphasia Other speech disturbance Aphasia as late effect of cerebrovascular accident Aphasia, late effect of cerebrovascular disease Cerebrovascular accident (CVA), unspecified mechanism (HCC) documented in this [facility] [place] [facility]* Diagnosis Elevated glucose- Primary Other abnormal glucose Anxiety Anxiety state, unspecified Iron deficiency anemia due to chronic blood loss Iron deficiency anemia secondary to blood loss (chronic) Hypertension, essential Unspecified essential hypertension Cerebrovascular accident (CVA), unspecified mechanism (HCC) Hyperlipidemia, unspecified hyperlipidemia type Coronary artery disease involving [place] coronary artery of [place] heart without angina pectoris documented [facility] this [facility] [place] [facility]* Diagnosis DARON (obstructive sleep apnea)- Primary Obstructive sleep apnea (adult) (pediatric) Intolerance of continuous positive airway pressure (CPAP) ventilation RLS (restless legs syndrome) Restless legs syndrome (RLS) Vitamin D deficiency Unspecified vitamin D deficiency [facility] Anxiety Anxiety state, unspecified [facility] Diagnosis Low iron stores- Primary Other abnormal blood chemistry Iron deficiency anemia due to chronic blood loss Iron deficiency anemia secondary to blood loss (chronic) [facility] [place] [facility]* Diagnosis Hypertension, essential- Primary Unspecified essential hypertension Anxiety Anxiety state, unspecified Depression, unspecified depression type Chronic insomnia Insomnia, unspecified Stage 3a chronic kidney disease (HCC) Elevated glucose Other abnormal glucose Hyperlipidemia, unspecified hyperlipidemia type Erectile dysfunction, unspecified erectile dysfunction type Iron deficiency anemia due to chronic blood loss Iron deficiency anemia secondary to blood loss (chronic) Paroxysmal atrial fibrillation (HCC) Atrial fibrillation Chronic obstructive pulmonary disease, unspecified COPD type (HCC) Cerebrovascular accident (CVA), unspecified mechanism (HCC) Coronary artery disease involving [place] coronary artery of [place] heart without angina pectoris 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) Right hemiplegia (HCC) Hemiplegia, unspecified, affecting unspecified side Dysphasia Other speech disturbance Aphasia as late effect of cerebrovascular accident Aphasia, late effect of cerebrovascular disease Essential hypertension Unspecified essential hypertension [facility] Diagnosis Centrilobular emphysema (HCC) Other emphysema [facility] Diagnosis History of colonic polyps- Primary Personal history of colonic polyps [facility] [place] [facility]* Diagnosis Coronary artery disease involving [place] coronary artery of [place] heart without angina pectoris- Primary Paroxysmal atrial fibrillation (HCC) Atrial fibrillation Essential hypertension Unspecified essential hypertension Mixed hyperlipidemia Bradycardia Other specified cardiac dysrhythmias Occlusion of left carotid artery Occlusion and stenosis of carotid artery without mention of cerebral infarction Pre-operative cardiovascular examination [facility] [place] [facility]* Diagnosis History of stroke- Primary Transient ischemic attack (TIA), and cerebral infarction without residual deficits Left carotid artery occlusion Occlusion and stenosis of carotid artery without mention of cerebral infarction Stenosis of left subclavian artery (HCC) Atherosclerosis of other specified arteries History of obstructive sleep apnea History of atrial fibrillation Personal history of other diseases of circulatory system History of coronary artery bypass, five Personal history of surgery to heart and great vessels, presenting hazards to health 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 Aphasia, late effect of cerebrovascular disease Spasticity Abnormal involuntary movements Other symptoms and signs involving the nervous system 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) Occlusion and stenosis of carotid artery with cerebral infarction Occlusion and stenosis of unspecified carotid artery Altered mental status, unspecified altered mental status type [facility] [place] [facility]* Diagnosis Anxiety- Primary Anxiety state, unspecified Essential hypertension Unspecified essential hypertension Hyperlipidemia, unspecified hyperlipidemia type Coronary artery disease involving [place] coronary artery of [place] heart without angina pectoris Cerebrovascular accident (CVA), unspecified mechanism (HCC) Chronic insomnia Insomnia, unspecified Right hemiplegia (HCC) Hemiplegia, unspecified, affecting unspecified side Aphasia as late effect of cerebrovascular accident Aphasia, late effect of cerebrovascular disease Chronic obstructive pulmonary disease, unspecified COPD type (HCC) Left flank pain Abdominal pain, unspecified site Cough, unspecified type Elevated serum creatinine Other nonspecific findings on examination of blood Elevated glucose Other abnormal glucose Respiratory failure, unspecified chronicity, unspecified whether with hypoxia or hypercapnia (HCC) Stage 3a chronic kidney disease (HCC) Aneurysm (HCC) Aneurysm of unspecified site Essential hypertension- Primary Unspecified essential hypertension Anxiety Anxiety state, unspecified Depression, unspecified depression type Hyperlipidemia, unspecified hyperlipidemia type Elevated glucose Other abnormal glucose Cerebrovascular accident (CVA), unspecified mechanism (HCC) Right hemiplegia (HCC) Hemiplegia, unspecified, affecting unspecified side Aphasia as late effect of cerebrovascular accident Aphasia, late effect of cerebrovascular disease Coronary artery disease involving [place] coronary artery of [place] heart without angina pectoris Paroxysmal atrial fibrillation (HCC) Atrial fibrillation Iron deficiency anemia due to chronic blood loss Iron deficiency anemia secondary to blood loss (chronic) Erectile dysfunction, unspecified erectile dysfunction type Chronic obstructive pulmonary disease, unspecified COPD type (HCC) Need for vaccination Need for prophylactic vaccination and inoculation against unspecified single disease Stage 3 chronic kidney disease, unspecified whether stage 3a or 3b CKD (HCC) Pre-op evaluation- Primary Preoperative examination, unspecified 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) Coronary artery disease involving [place] coronary artery of [place] heart without angina pectoris Paroxysmal atrial fibrillation (HCC) Atrial fibrillation Centrilobular emphysema (HCC) Other emphysema COPD, moderate (HCC)- Primary Chronic airway obstruction, not elsewhere classified Former cigarette smoker Personal history of tobacco use, presenting hazards to health Dependence on nocturnal oxygen therapy [facility] [place] [facility]* Diagnosis Anxiety- Primary Anxiety state, unspecified Essential hypertension Unspecified essential hypertension Hyperlipidemia, unspecified hyperlipidemia type Coronary artery disease involving [place] coronary artery of [place] heart without angina pectoris Cerebrovascular accident (CVA), unspecified mechanism (HCC) Chronic insomnia Insomnia, unspecified Right hemiplegia (HCC) Hemiplegia, unspecified, affecting unspecified side Aphasia as late effect of cerebrovascular accident Aphasia, late effect of cerebrovascular disease Chronic obstructive pulmonary disease, unspecified COPD type (HCC) Left flank pain Abdominal pain, unspecified site Cough, unspecified type Elevated serum creatinine Other nonspecific findings on examination of blood Elevated glucose Other abnormal glucose Respiratory failure, unspecified chronicity, unspecified whether with hypoxia or hypercapnia (HCC) Stage 3a chronic kidney disease (HCC) Aneurysm (HCC) Aneurysm of unspecified site Essential hypertension- Primary Unspecified essential hypertension Anxiety Anxiety state, unspecified Depression, unspecified depression type Hyperlipidemia, unspecified hyperlipidemia type Elevated glucose Other abnormal glucose Cerebrovascular accident (CVA), unspecified mechanism (HCC) Right hemiplegia (HCC) Hemiplegia, unspecified, affecting unspecified side Aphasia as late effect of cerebrovascular accident Aphasia, late effect of cerebrovascular disease Coronary artery disease involving [place] coronary artery of [place] heart without angina pectoris Paroxysmal atrial fibrillation (HCC) Atrial fibrillation Iron deficiency anemia due to chronic blood loss Iron deficiency anemia secondary to blood loss (chronic) Erectile dysfunction, unspecified erectile dysfunction type Chronic obstructive pulmonary disease, unspecified COPD type (HCC) Need for vaccination Need for prophylactic vaccination and inoculation against unspecified single disease Stage 3 chronic kidney disease, unspecified whether stage 3a or 3b CKD (HCC) Pre-op evaluation- Primary Preoperative examination, unspecified 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) Coronary artery disease involving [place] coronary artery of [place] heart without angina pectoris Paroxysmal atrial fibrillation (HCC) Atrial fibrillation Centrilobular emphysema (HCC) Other emphysema Cervicalgia [facility] Diagnosis Acute cough Anxiety- Primary Anxiety state, unspecified Essential hypertension Unspecified essential hypertension Hyperlipidemia, unspecified hyperlipidemia type Coronary artery disease involving [place] coronary artery of [place] heart without angina pectoris Cerebrovascular accident (CVA), unspecified mechanism (HCC) Chronic insomnia Insomnia, unspecified Right hemiplegia (HCC) Hemiplegia, unspecified, affecting unspecified side Aphasia as late effect of cerebrovascular accident Aphasia, late effect of cerebrovascular disease Chronic obstructive pulmonary disease, unspecified COPD type (HCC) Left flank pain Abdominal pain, unspecified site Cough, unspecified type Elevated serum creatinine Other nonspecific findings on examination of blood Elevated glucose Other abnormal glucose Respiratory failure, unspecified chronicity, unspecified whether with hypoxia or hypercapnia (HCC) Stage 3a chronic kidney disease (HCC) Aneurysm (HCC) Aneurysm of unspecified site Pre-op evaluation- Primary Preoperative examination, unspecified 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) Coronary artery disease involving [place] coronary artery of [place] heart without angina pectoris Paroxysmal atrial fibrillation (HCC) Atrial fibrillation Centrilobular emphysema (HCC) Other emphysema [facility] Diagnosis Anxiety- Primary Anxiety state, unspecified Essential hypertension Unspecified essential hypertension Hyperlipidemia, unspecified hyperlipidemia type Coronary artery disease involving [place] coronary artery of [place] heart without angina pectoris Cerebrovascular accident (CVA), unspecified mechanism (HCC) Chronic insomnia Insomnia, unspecified Right hemiplegia (HCC) Hemiplegia, unspecified, affecting unspecified side Aphasia as late effect of cerebrovascular accident Aphasia, late effect of cerebrovascular disease Chronic obstructive pulmonary disease, unspecified COPD type (HCC) Left flank pain Abdominal pain, unspecified site Cough, unspecified type Elevated serum creatinine Other nonspecific findings on examination of blood Elevated glucose Other abnormal glucose Respiratory failure, unspecified chronicity, unspecified whether with hypoxia or hypercapnia (HCC) Stage 3a chronic kidney disease (HCC) Aneurysm (HCC) Aneurysm of unspecified site Essential hypertension- Primary Unspecified essential hypertension Anxiety Anxiety state, unspecified Depression, unspecified depression type Hyperlipidemia, unspecified hyperlipidemia type Elevated glucose Other abnormal glucose Cerebrovascular accident (CVA), unspecified mechanism (HCC) Right hemiplegia (HCC) Hemiplegia, unspecified, affecting unspecified side Aphasia as late effect of cerebrovascular accident Aphasia, late effect of cerebrovascular disease Coronary artery disease involving [place] coronary artery of [place] heart without angina pectoris Paroxysmal atrial fibrillation (HCC) Atrial fibrillation Iron deficiency anemia due to chronic blood loss Iron deficiency anemia secondary to blood loss (chronic) Erectile dysfunction, unspecified erectile dysfunction type Chronic obstructive pulmonary disease, unspecified COPD type (HCC) Need for vaccination Need for prophylactic vaccination and inoculation against unspecified single disease Stage 3 chronic kidney disease, unspecified whether stage 3a or 3b CKD (HCC) Pre-op evaluation- Primary Preoperative examination, unspecified 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) Coronary artery disease involving [place] coronary artery of [place] heart without angina pectoris Paroxysmal atrial fibrillation (HCC) Atrial fibrillation Centrilobular emphysema (HCC) Other emphysema Cerebral aneurysm- Primary Cerebral aneurysm, nonruptured [facility] Diagnosis Anxiety- Primary Anxiety state, unspecified Essential hypertension Unspecified essential hypertension Hyperlipidemia, unspecified hyperlipidemia type Coronary artery disease involving [place] coronary artery of [place] heart without angina pectoris Cerebrovascular accident (CVA), unspecified mechanism (HCC) Chronic insomnia Insomnia, unspecified Right hemiplegia (HCC) Hemiplegia, unspecified, affecting unspecified side Aphasia as late effect of cerebrovascular accident Aphasia, late effect of cerebrovascular disease Chronic obstructive pulmonary disease, unspecified COPD type (HCC) Left flank pain Abdominal pain, unspecified site Cough, unspecified type Elevated serum creatinine Other nonspecific findings on examination of blood Elevated glucose Other abnormal glucose Respiratory failure, unspecified chronicity, unspecified whether with hypoxia or hypercapnia (HCC) Stage 3a chronic kidney disease (HCC) Aneurysm (HCC) Aneurysm of unspecified site Essential hypertension- Primary Unspecified essential hypertension Anxiety Anxiety state, unspecified Depression, unspecified depression type Hyperlipidemia, unspecified hyperlipidemia type Elevated glucose Other abnormal glucose Cerebrovascular accident (CVA), unspecified mechanism (HCC) Right hemiplegia (HCC) Hemiplegia, unspecified, affecting unspecified side Aphasia as late effect of cerebrovascular accident Aphasia, late effect of cerebrovascular disease Coronary artery disease involving [place] coronary artery of [place] heart without angina pectoris Paroxysmal atrial fibrillation (HCC) Atrial fibrillation Iron deficiency anemia due to chronic blood loss Iron deficiency anemia secondary to blood loss (chronic) Erectile dysfunction, unspecified erectile dysfunction type Chronic obstructive pulmonary disease, unspecified COPD type (HCC) Need for vaccination Need for prophylactic vaccination and inoculation against unspecified single disease Stage 3 chronic kidney disease, unspecified whether stage 3a or 3b CKD (HCC) Pre-op evaluation- Primary Preoperative examination, unspecified 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) Coronary artery disease involving [place] coronary artery of [place] heart without angina pectoris Paroxysmal atrial fibrillation (HCC) Atrial fibrillation Centrilobular emphysema (HCC) Other emphysema History of stroke Transient ischemic attack (TIA), and cerebral infarction without residual deficits Left carotid artery occlusion Occlusion and stenosis of carotid artery without mention of cerebral infarction Stenosis of left subclavian artery (HCC) Atherosclerosis of other specified arteries History of obstructive sleep apnea History of atrial fibrillation Personal history of other diseases of circulatory system History of coronary artery bypass, five Personal history of surgery to heart and great vessels, presenting hazards to health 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 Aphasia, late effect of cerebrovascular disease Spasticity Abnormal involuntary movements Other symptoms and signs involving the nervous system 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) Occlusion and stenosis of carotid artery with cerebral infarction Occlusion and stenosis of unspecified carotid artery documented [facility] [place] [facility]* Diagnosis Anxiety- Primary Anxiety state, unspecified Essential hypertension Unspecified essential hypertension Hyperlipidemia, unspecified hyperlipidemia type Coronary artery disease involving [place] coronary artery of [place] heart without angina pectoris Cerebrovascular accident (CVA), unspecified mechanism (HCC) Chronic insomnia Insomnia, unspecified Right hemiplegia (HCC) Hemiplegia, unspecified, affecting unspecified side Aphasia as late effect of cerebrovascular accident Aphasia, late effect of cerebrovascular disease Chronic obstructive pulmonary disease, unspecified COPD type (HCC) Left flank pain Abdominal pain, unspecified site Cough, unspecified type Elevated serum creatinine Other nonspecific findings on examination of blood Elevated glucose Other abnormal glucose Respiratory failure, unspecified chronicity, unspecified whether with hypoxia or hypercapnia (HCC) Stage 3a chronic kidney disease (HCC) Aneurysm (HCC) Aneurysm of unspecified site Essential hypertension- Primary Unspecified essential hypertension Anxiety Anxiety state, unspecified Depression, unspecified depression type Hyperlipidemia, unspecified hyperlipidemia type Elevated glucose Other abnormal glucose Cerebrovascular accident (CVA), unspecified mechanism (HCC) Right hemiplegia (HCC) Hemiplegia, unspecified, affecting unspecified side Aphasia as late effect of cerebrovascular accident Aphasia, late effect of cerebrovascular disease Coronary artery disease involving [place] coronary artery of [place] heart without angina pectoris Paroxysmal atrial fibrillation (HCC) Atrial fibrillation Iron deficiency anemia due to chronic blood loss Iron deficiency anemia secondary to blood loss (chronic) Erectile dysfunction, unspecified erectile dysfunction type Chronic obstructive pulmonary disease, unspecified COPD type (HCC) Need for vaccination Need for prophylactic vaccination and inoculation against unspecified single disease Stage 3 chronic kidney disease, unspecified whether stage 3a or 3b CKD (HCC) Pre-op evaluation- Primary Preoperative examination, unspecified 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) Coronary artery disease involving [place] coronary artery of [place] heart without angina pectoris Paroxysmal atrial fibrillation (HCC) Atrial fibrillation Centrilobular emphysema (HCC) Other emphysema Centrilobular emphysema (HCC)- Primary Other emphysema Chronic respiratory failure with hypoxia (HCC) Chronic respiratory failure documented in this encounter [facility] note* Diagnosis Anxiety- Primary Anxiety state, unspecified Essential hypertension Unspecified essential hypertension Hyperlipidemia, unspecified hyperlipidemia type Coronary artery disease involving [place] coronary artery of [place] heart without angina pectoris Cerebrovascular accident (CVA), unspecified mechanism (HCC) Chronic insomnia Insomnia, unspecified Right hemiplegia (HCC) Hemiplegia, unspecified, affecting unspecified side Aphasia as late effect of cerebrovascular accident Aphasia, late effect of cerebrovascular disease Chronic obstructive pulmonary disease, unspecified COPD type (HCC) Left flank pain Abdominal pain, unspecified site Cough, unspecified type Elevated serum creatinine Other nonspecific findings on examination of blood Elevated glucose Other abnormal glucose Respiratory failure, unspecified chronicity, unspecified whether with hypoxia or hypercapnia (HCC) Stage 3a chronic kidney disease (HCC) Aneurysm (HCC) Aneurysm of unspecified site Essential hypertension- Primary Unspecified essential hypertension Anxiety Anxiety state, unspecified Depression, unspecified depression type Hyperlipidemia, unspecified hyperlipidemia type Elevated glucose Other abnormal glucose Cerebrovascular accident (CVA), unspecified mechanism (HCC) Right hemiplegia (HCC) Hemiplegia, unspecified, affecting unspecified side Aphasia as late effect of cerebrovascular accident Aphasia, late effect of cerebrovascular disease Coronary artery disease involving [place] coronary artery of [place] heart without angina pectoris Paroxysmal atrial fibrillation (HCC) Atrial fibrillation Iron deficiency anemia due to chronic blood loss Iron deficiency anemia secondary to blood loss (chronic) Erectile dysfunction, unspecified erectile dysfunction type Chronic obstructive pulmonary disease, unspecified COPD type (HCC) Need for vaccination Need for prophylactic vaccination and inoculation against unspecified single disease Stage 3 chronic kidney disease, unspecified whether stage 3a or 3b CKD (HCC) Pre-op evaluation- Primary Preoperative examination, unspecified 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) Coronary artery disease involving [place] coronary artery of [place] heart without angina pectoris Paroxysmal atrial fibrillation (HCC) Atrial fibrillation Centrilobular emphysema (HCC) Other emphysema Cerebral aneurysm- Primary Cerebral aneurysm, nonruptured History of stroke Transient ischemic attack (TIA), and cerebral infarction without residual deficits Left carotid artery occlusion Occlusion and stenosis of carotid artery without mention of cerebral infarction Stenosis of left subclavian artery (HCC) Atherosclerosis of other specified arteries History of obstructive sleep apnea History of atrial fibrillation Personal history of other diseases of circulatory system History of coronary artery bypass, five Personal history of surgery to heart and great vessels, presenting hazards to health Spasticity Abnormal involuntary movements 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 Aphasia, late effect of cerebrovascular disease 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) Occlusion and stenosis of carotid artery with cerebral infarction documented in this encounter [facility] note* Diagnosis Anxiety- Primary Anxiety state, unspecified Essential hypertension Unspecified essential hypertension Hyperlipidemia, unspecified hyperlipidemia type Coronary artery disease involving [place] coronary artery of [place] heart without angina pectoris Cerebrovascular accident (CVA), unspecified mechanism (HCC) Chronic insomnia Insomnia, unspecified Right hemiplegia (HCC) Hemiplegia, unspecified, affecting unspecified side Aphasia as late effect of cerebrovascular accident Aphasia, late effect of cerebrovascular disease Chronic obstructive pulmonary disease, unspecified COPD type (HCC) Left flank pain Abdominal pain, unspecified site Cough, unspecified type Elevated serum creatinine Other nonspecific findings on examination of blood Elevated glucose Other abnormal glucose Respiratory failure, unspecified chronicity, unspecified whether with hypoxia or hypercapnia (HCC) Stage 3a chronic kidney disease (HCC) Aneurysm (HCC) Aneurysm of unspecified site Essential hypertension- Primary Unspecified essential hypertension Anxiety Anxiety state, unspecified Depression, unspecified depression type Hyperlipidemia, unspecified hyperlipidemia type Elevated glucose Other abnormal glucose Cerebrovascular accident (CVA), unspecified mechanism (HCC) Right hemiplegia (HCC) Hemiplegia, unspecified, affecting unspecified side Aphasia as late effect of cerebrovascular accident Aphasia, late effect of cerebrovascular disease Coronary artery disease involving [place] coronary artery of [place] heart without angina pectoris Paroxysmal atrial fibrillation (HCC) Atrial fibrillation Iron deficiency anemia due to chronic blood loss Iron deficiency anemia secondary to blood loss (chronic) Erectile dysfunction, unspecified erectile dysfunction type Chronic obstructive pulmonary disease, unspecified COPD type (HCC) Need for vaccination Need for prophylactic vaccination and inoculation against unspecified single disease Stage 3 chronic kidney disease, unspecified whether stage 3a or 3b CKD (HCC) Pre-op evaluation- Primary Preoperative examination, unspecified 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) Coronary artery disease involving [place] coronary artery of [place] heart without angina pectoris Paroxysmal atrial fibrillation (HCC) Atrial fibrillation Centrilobular emphysema (HCC) Other emphysema Medicare annual wellness visit, initial- Primary Routine general medical examination at a health care facility Mixed hyperlipidemia Anxiety Anxiety state, unspecified Coronary artery disease involving [place] coronary artery of [place] heart without angina pectoris Essential hypertension Unspecified essential hypertension Chronic insomnia Insomnia, unspecified Paroxysmal atrial fibrillation (HCC) Atrial fibrillation Bradycardia Other specified cardiac dysrhythmias 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) [facility] Anxiety- Primary Anxiety state, unspecified Essential hypertension Unspecified essential hypertension Hyperlipidemia, unspecified hyperlipidemia type Coronary artery disease involving [place] coronary artery of [place] heart without angina pectoris Cerebrovascular accident (CVA), unspecified mechanism (HCC) Chronic insomnia Insomnia, unspecified Right hemiplegia (HCC) Hemiplegia, unspecified, affecting unspecified side Aphasia as late effect of cerebrovascular accident Aphasia, late effect of cerebrovascular disease Chronic obstructive pulmonary disease, unspecified COPD type (HCC) Left flank pain Abdominal pain, unspecified site Cough, unspecified type Elevated serum creatinine Other nonspecific findings on examination of blood Elevated glucose Other abnormal glucose Respiratory failure, unspecified chronicity, unspecified whether with hypoxia or hypercapnia (HCC) Stage 3a chronic kidney disease (HCC) Aneurysm (HCC) Aneurysm of unspecified site Essential hypertension- Primary Unspecified essential hypertension Anxiety Anxiety state, unspecified Depression, unspecified depression type Hyperlipidemia, unspecified hyperlipidemia type Elevated glucose Other abnormal glucose Cerebrovascular accident (CVA), unspecified mechanism (HCC) Right hemiplegia (HCC) Hemiplegia, unspecified, affecting unspecified side Aphasia as late effect of cerebrovascular accident Aphasia, late effect of cerebrovascular disease Coronary artery disease involving [place] coronary artery of [place] heart without angina pectoris Paroxysmal atrial fibrillation (HCC) Atrial fibrillation Iron deficiency anemia due to chronic blood loss Iron deficiency anemia secondary to blood loss (chronic) Erectile dysfunction, unspecified erectile dysfunction type Chronic obstructive pulmonary disease, unspecified COPD type (HCC) Need for vaccination Need for prophylactic vaccination and inoculation against unspecified single disease Stage 3 chronic kidney disease, unspecified whether stage 3a or 3b CKD (HCC) Pre-op evaluation- Primary Preoperative examination, unspecified 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) Coronary artery disease involving [place] coronary artery of [place] heart without angina pectoris Paroxysmal atrial fibrillation (HCC) Atrial fibrillation Centrilobular emphysema (HCC) Other emphysema Cervicalgia [facility] [place] [facility] Diagnosis Anxiety- Primary Anxiety state, unspecified Essential hypertension Unspecified essential hypertension Hyperlipidemia, unspecified hyperlipidemia type Coronary artery disease involving [place] coronary artery of [place] heart without angina pectoris Cerebrovascular accident (CVA), unspecified mechanism (HCC) Chronic insomnia Insomnia, unspecified Right hemiplegia (HCC) Hemiplegia, unspecified, affecting unspecified side Aphasia as late effect of cerebrovascular accident Aphasia, late effect of cerebrovascular disease Chronic obstructive pulmonary disease, unspecified COPD type (HCC) Left flank pain Abdominal pain, unspecified site Cough, unspecified type Elevated serum creatinine Other nonspecific findings on examination of blood Elevated glucose Other abnormal glucose Respiratory failure, unspecified chronicity, unspecified whether with hypoxia or hypercapnia (HCC) Stage 3a chronic kidney disease (HCC) Aneurysm (HCC) Aneurysm of unspecified site Essential hypertension- Primary Unspecified essential hypertension Anxiety Anxiety state, unspecified Depression, unspecified depression type Hyperlipidemia, unspecified hyperlipidemia type Elevated glucose Other abnormal glucose Cerebrovascular accident (CVA), unspecified mechanism (HCC) Right hemiplegia (HCC) Hemiplegia, unspecified, affecting unspecified side Aphasia as late effect of cerebrovascular accident Aphasia, late effect of cerebrovascular disease Coronary artery disease involving [place] coronary artery of [place] heart without angina pectoris Paroxysmal atrial fibrillation (HCC) Atrial fibrillation Iron deficiency anemia due to chronic blood loss Iron deficiency anemia secondary to blood loss (chronic) Erectile dysfunction, unspecified erectile dysfunction type Chronic obstructive pulmonary disease, unspecified COPD type (HCC) Need for vaccination Need for prophylactic vaccination and inoculation against unspecified single disease Stage 3 chronic kidney disease, unspecified whether stage 3a or 3b CKD (HCC) Pre-op evaluation- Primary Preoperative examination, unspecified 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) Coronary artery disease involving [place] coronary artery of [place] heart without angina pectoris Paroxysmal atrial fibrillation (HCC) Atrial fibrillation Centrilobular emphysema (HCC) Other emphysema Cerebral aneurysm without rupture Cerebral aneurysm, nonruptured [facility] Diagnosis Anxiety- Primary Anxiety state, unspecified Essential hypertension Unspecified essential hypertension Hyperlipidemia, unspecified hyperlipidemia type Coronary artery disease involving [place] coronary artery of [place] heart without angina pectoris Cerebrovascular accident (CVA), unspecified mechanism (HCC) Chronic insomnia Insomnia, unspecified Right hemiplegia (HCC) Hemiplegia, unspecified, affecting unspecified side Aphasia as late effect of cerebrovascular accident Aphasia, late effect of cerebrovascular disease Chronic obstructive pulmonary disease, unspecified COPD type (HCC) Left flank pain Abdominal pain, unspecified site Cough, unspecified type Elevated serum creatinine Other nonspecific findings on examination of blood Elevated glucose Other abnormal glucose Respiratory failure, unspecified chronicity, unspecified whether with hypoxia or hypercapnia (HCC) Stage 3a chronic kidney disease (HCC) Aneurysm (HCC) Aneurysm of unspecified site Essential hypertension- Primary Unspecified essential hypertension Anxiety Anxiety state, unspecified Depression, unspecified depression type Hyperlipidemia, unspecified hyperlipidemia type Elevated glucose Other abnormal glucose Cerebrovascular accident (CVA), unspecified mechanism (HCC) Right hemiplegia (HCC) Hemiplegia, unspecified, affecting unspecified side Aphasia as late effect of cerebrovascular accident Aphasia, late effect of cerebrovascular disease Coronary artery disease involving [place] coronary artery of [place] heart without angina pectoris Paroxysmal atrial fibrillation (HCC) Atrial fibrillation Iron deficiency anemia due to chronic blood loss Iron deficiency anemia secondary to blood loss (chronic) Erectile dysfunction, unspecified erectile dysfunction type Chronic obstructive pulmonary disease, unspecified COPD type (HCC) Need for vaccination Need for prophylactic vaccination and inoculation against unspecified single disease Stage 3 chronic kidney disease, unspecified whether stage 3a or 3b CKD (HCC) Pre-op evaluation- Primary Preoperative examination, unspecified 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) Coronary artery disease involving [place] coronary artery of [place] heart without angina pectoris Paroxysmal atrial fibrillation (HCC) Atrial fibrillation Centrilobular emphysema (HCC) Other emphysema History of stroke- Primary Transient ischemic attack (TIA), and cerebral infarction without residual deficits Spasticity Abnormal involuntary movements Right foot drop Other acquired deformity of ankle and foot Hemiparesis affecting right side as late effect of cerebrovascular accident (HCC) Hemiplegia affecting unspecified side, late effect of cerebrovascular disease [facility] Diagnosis Anxiety- Primary Anxiety state, unspecified Essential hypertension Unspecified essential hypertension Hyperlipidemia, unspecified hyperlipidemia type Coronary artery disease involving [place] coronary artery of [place] heart without angina pectoris Cerebrovascular accident (CVA), unspecified mechanism (HCC) Chronic insomnia Insomnia, unspecified Right hemiplegia (HCC) Hemiplegia, unspecified, affecting unspecified side Aphasia as late effect of cerebrovascular accident Aphasia, late effect of cerebrovascular disease Chronic obstructive pulmonary disease, unspecified COPD type (HCC) Left flank pain Abdominal pain, unspecified site Cough, unspecified type Elevated serum creatinine Other nonspecific findings on examination of blood Elevated glucose Other abnormal glucose Respiratory failure, unspecified chronicity, unspecified whether with hypoxia or hypercapnia (HCC) Stage 3a chronic kidney disease (HCC) Aneurysm (HCC) Aneurysm of unspecified site Essential hypertension- Primary Unspecified essential hypertension Anxiety Anxiety state, unspecified Depression, unspecified depression type Hyperlipidemia, unspecified hyperlipidemia type Elevated glucose Other abnormal glucose Cerebrovascular accident (CVA), unspecified mechanism (HCC) Right hemiplegia (HCC) Hemiplegia, unspecified, affecting unspecified side Aphasia as late effect of cerebrovascular accident Aphasia, late effect of cerebrovascular disease Coronary artery disease involving [place] coronary artery of [place] heart without angina pectoris Paroxysmal atrial fibrillation (HCC) Atrial fibrillation Iron deficiency anemia due to chronic blood loss Iron deficiency anemia secondary to blood loss (chronic) Erectile dysfunction, unspecified erectile dysfunction type Chronic obstructive pulmonary disease, unspecified COPD type (HCC) Need for vaccination Need for prophylactic vaccination and inoculation against unspecified single disease Stage 3 chronic kidney disease, unspecified whether stage 3a or 3b CKD (HCC) Pre-op evaluation- Primary Preoperative examination, unspecified 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) Coronary artery disease involving [place] coronary artery of [place] heart without angina pectoris Paroxysmal atrial fibrillation (HCC) Atrial fibrillation Centrilobular emphysema (HCC) Other emphysema Blood in stool [facility] Diagnosis Anxiety- Primary Anxiety state, unspecified Essential hypertension Unspecified essential hypertension Hyperlipidemia, unspecified hyperlipidemia type Coronary artery disease involving [place] coronary artery of [place] heart without angina pectoris Cerebrovascular accident (CVA), unspecified mechanism (HCC) Chronic insomnia Insomnia, unspecified Right hemiplegia (HCC) Hemiplegia, unspecified, affecting unspecified side Aphasia as late effect of cerebrovascular accident Aphasia, late effect of cerebrovascular disease Chronic obstructive pulmonary disease, unspecified COPD type (HCC) Left flank pain Abdominal pain, unspecified site Cough, unspecified type Elevated serum creatinine Other nonspecific findings on examination of blood Elevated glucose Other abnormal glucose Respiratory failure, unspecified chronicity, unspecified whether with hypoxia or hypercapnia (HCC) Stage 3a chronic kidney disease (HCC) Aneurysm (HCC) Aneurysm of unspecified site Essential hypertension- Primary Unspecified essential hypertension Anxiety Anxiety state, unspecified Depression, unspecified depression type Hyperlipidemia, unspecified hyperlipidemia type Elevated glucose Other abnormal glucose Cerebrovascular accident (CVA), unspecified mechanism (HCC) Right hemiplegia (HCC) Hemiplegia, unspecified, affecting unspecified side Aphasia as late effect of cerebrovascular accident Aphasia, late effect of cerebrovascular disease Coronary artery disease involving [place] coronary artery of [place] heart without angina pectoris Paroxysmal atrial fibrillation (HCC) Atrial fibrillation Iron deficiency anemia due to chronic blood loss Iron deficiency anemia secondary to blood loss (chronic) Erectile dysfunction, unspecified erectile dysfunction type Chronic obstructive pulmonary disease, unspecified COPD type (HCC) Need for vaccination Need for prophylactic vaccination and inoculation against unspecified single disease Stage 3 chronic kidney disease, unspecified whether stage 3a or 3b CKD (HCC) Pre-op evaluation- Primary Preoperative examination, unspecified 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) Coronary artery disease involving [place] coronary artery of [place] heart without angina pectoris Paroxysmal atrial fibrillation (HCC) Atrial fibrillation Centrilobular emphysema (HCC) Other emphysema Hospital discharge follow-up- Primary Other follow-up examination Adverse effect of drug, initial encounter Seizure disorder (HCC) Unspecified epilepsy without mention of intractable epilepsy Bacterial pneumonia Bacterial pneumonia, unspecified [facility] [place] [facility]* Diagnosis Anxiety- Primary Anxiety state, unspecified Essential hypertension Unspecified essential hypertension Hyperlipidemia, unspecified hyperlipidemia type Coronary artery disease involving [place] coronary artery of [place] heart without angina pectoris Cerebrovascular accident (CVA), unspecified mechanism (HCC) Chronic insomnia Insomnia, unspecified Right hemiplegia (HCC) Hemiplegia, unspecified, affecting unspecified side Aphasia as late effect of cerebrovascular accident Aphasia, late effect of cerebrovascular disease Chronic obstructive pulmonary disease, unspecified COPD type (HCC) Left flank pain Abdominal pain, unspecified site Cough, unspecified type Elevated serum creatinine Other nonspecific findings on examination of blood Elevated glucose Other abnormal glucose Respiratory failure, unspecified chronicity, unspecified whether with hypoxia or hypercapnia (HCC) Stage 3a chronic kidney disease (HCC) Aneurysm (HCC) Aneurysm of unspecified site Essential hypertension- Primary Unspecified essential hypertension Anxiety Anxiety state, unspecified Depression, unspecified depression type Hyperlipidemia, unspecified hyperlipidemia type Elevated glucose Other abnormal glucose Cerebrovascular accident (CVA), unspecified mechanism (HCC) Right hemiplegia (HCC) Hemiplegia, unspecified, affecting unspecified side Aphasia as late effect of cerebrovascular accident Aphasia, late effect of cerebrovascular disease Coronary artery disease involving [place] coronary artery of [place] heart without angina pectoris Paroxysmal atrial fibrillation (HCC) Atrial fibrillation Iron deficiency anemia due to chronic blood loss Iron deficiency anemia secondary to blood loss (chronic) Erectile dysfunction, unspecified erectile dysfunction type Chronic obstructive pulmonary disease, unspecified COPD type (HCC) Need for vaccination Need for prophylactic vaccination and inoculation against unspecified single disease Stage 3 chronic kidney disease, unspecified whether stage 3a or 3b CKD (HCC) Pre-op evaluation- Primary Preoperative examination, unspecified 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) Coronary artery disease involving [place] coronary artery of [place] heart without angina pectoris Paroxysmal atrial fibrillation (HCC) Atrial fibrillation Centrilobular emphysema (HCC) Other emphysema Seizure disorder (HCC)- Primary Unspecified epilepsy without mention of intractable epilepsy Acute pain of left [facility] Diagnosis Anxiety- Primary Anxiety state, unspecified Essential hypertension Unspecified essential hypertension Hyperlipidemia, unspecified hyperlipidemia type Coronary artery disease involving [place] coronary artery of [place] heart without angina pectoris Cerebrovascular accident (CVA), unspecified mechanism (HCC) Chronic insomnia Insomnia, unspecified Right hemiplegia (HCC) Hemiplegia, unspecified, affecting unspecified side Aphasia as late effect of cerebrovascular accident Aphasia, late effect of cerebrovascular disease Chronic obstructive pulmonary disease, unspecified COPD type (HCC) Left flank pain Abdominal pain, unspecified site Cough, unspecified type Elevated serum creatinine Other nonspecific findings on examination of blood Elevated glucose Other abnormal glucose Respiratory failure, unspecified chronicity, unspecified whether with hypoxia or hypercapnia (HCC) Stage 3a chronic kidney disease (HCC) Aneurysm (HCC) Aneurysm of unspecified site Essential hypertension- Primary Unspecified essential hypertension Anxiety Anxiety state, unspecified Depression, unspecified depression type Hyperlipidemia, unspecified hyperlipidemia type Elevated glucose Other abnormal glucose Cerebrovascular accident (CVA), unspecified mechanism (HCC) Right hemiplegia (HCC) Hemiplegia, unspecified, affecting unspecified side Aphasia as late effect of cerebrovascular accident Aphasia, late effect of cerebrovascular disease Coronary artery disease involving [place] coronary artery of [place] heart without angina pectoris Paroxysmal atrial fibrillation (HCC) Atrial fibrillation Iron deficiency anemia due to chronic blood loss Iron deficiency anemia secondary to blood loss (chronic) Erectile dysfunction, unspecified erectile dysfunction type Chronic obstructive pulmonary disease, unspecified COPD type (HCC) Need for vaccination Need for prophylactic vaccination and inoculation against unspecified single disease Stage 3 chronic kidney disease, unspecified whether stage 3a or 3b CKD (HCC) Pre-op evaluation- Primary Preoperative examination, unspecified 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) Coronary artery disease involving [place] coronary artery of [place] heart without angina pectoris Paroxysmal atrial fibrillation (HCC) Atrial fibrillation Centrilobular emphysema (HCC) Other emphysema Cerebral aneurysm- Primary Cerebral aneurysm, nonruptured History of stroke Transient ischemic attack (TIA), and cerebral infarction without residual deficits Left carotid artery occlusion Occlusion and stenosis of carotid artery without mention of cerebral infarction History of atrial fibrillation Personal history of other diseases of circulatory system Spasticity Abnormal involuntary movements 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 Aphasia, late effect of cerebrovascular disease Altered mental status, unspecified altered mental status type Nonspecific abnormal electroencephalogram (EEG) [facility] [place] [facility]* Diagnosis Anxiety- Primary Anxiety state, unspecified Essential hypertension Unspecified essential hypertension Hyperlipidemia, unspecified hyperlipidemia type Coronary artery disease involving [place] coronary artery of [place] heart without angina pectoris Cerebrovascular accident (CVA), unspecified mechanism (HCC) Chronic insomnia Insomnia, unspecified Right hemiplegia (HCC) Hemiplegia, unspecified, affecting unspecified side Aphasia as late effect of cerebrovascular accident Aphasia, late effect of cerebrovascular disease Chronic obstructive pulmonary disease, unspecified COPD type (HCC) Left flank pain Abdominal pain, unspecified site Cough, unspecified type Elevated serum creatinine Other nonspecific findings on examination of blood Elevated glucose Other abnormal glucose Respiratory failure, unspecified chronicity, unspecified whether with hypoxia or hypercapnia (HCC) Stage 3a chronic kidney disease (HCC) Aneurysm (HCC) Aneurysm of unspecified site Essential hypertension- Primary Unspecified essential hypertension Anxiety Anxiety state, unspecified Depression, unspecified depression type Hyperlipidemia, unspecified hyperlipidemia type Elevated glucose Other abnormal glucose Cerebrovascular accident (CVA), unspecified mechanism (HCC) Right hemiplegia (HCC) Hemiplegia, unspecified, affecting unspecified side Aphasia as late effect of cerebrovascular accident Aphasia, late effect of cerebrovascular disease Coronary artery disease involving [place] coronary artery of [place] heart without angina pectoris Paroxysmal atrial fibrillation (HCC) Atrial fibrillation Iron deficiency anemia due to chronic blood loss Iron deficiency anemia secondary to blood loss (chronic) Erectile dysfunction, unspecified erectile dysfunction type Chronic obstructive pulmonary disease, unspecified COPD type (HCC) Need for vaccination Need for prophylactic vaccination and inoculation against unspecified single disease Stage 3 chronic kidney disease, unspecified whether stage 3a or 3b CKD (HCC) Pre-op evaluation- Primary Preoperative examination, unspecified 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) Coronary artery disease involving [place] coronary artery of [place] heart without angina pectoris Paroxysmal atrial fibrillation (HCC) Atrial fibrillation Centrilobular emphysema (HCC) Other emphysema Altered awareness, transient- Primary Transient alteration of awareness Abnormal EEG Nonspecific abnormal electroencephalogram (EEG) documented in this encounter [facility] note* Diagnosis Anxiety- Primary Anxiety state, unspecified Essential hypertension Unspecified essential hypertension Hyperlipidemia, unspecified hyperlipidemia type Coronary artery disease involving [place] coronary artery of [place] heart without angina pectoris Cerebrovascular accident (CVA), unspecified mechanism (HCC) Chronic insomnia Insomnia, unspecified Right hemiplegia (HCC) Hemiplegia, unspecified, affecting unspecified side Aphasia as late effect of cerebrovascular accident Aphasia, late effect of cerebrovascular disease Chronic obstructive pulmonary disease, unspecified COPD type (HCC) Left flank pain Abdominal pain, unspecified site Cough, unspecified type Elevated serum creatinine Other nonspecific findings on examination of blood Elevated glucose Other abnormal glucose Respiratory failure, unspecified chronicity, unspecified whether with hypoxia or hypercapnia (HCC) Stage 3a chronic kidney disease (HCC) Aneurysm (HCC) Aneurysm of unspecified site Essential hypertension- Primary Unspecified essential hypertension Anxiety Anxiety state, unspecified Depression, unspecified depression type Hyperlipidemia, unspecified hyperlipidemia type Elevated glucose Other abnormal glucose Cerebrovascular accident (CVA), unspecified mechanism (HCC) Right hemiplegia (HCC) Hemiplegia, unspecified, affecting unspecified side Aphasia as late effect of cerebrovascular accident Aphasia, late effect of cerebrovascular disease Coronary artery disease involving [place] coronary artery of [place] heart without angina pectoris Paroxysmal atrial fibrillation (HCC) Atrial fibrillation Iron deficiency anemia due to chronic blood loss Iron deficiency anemia secondary to blood loss (chronic) Erectile dysfunction, unspecified erectile dysfunction type Chronic obstructive pulmonary disease, unspecified COPD type (HCC) Need for vaccination Need for prophylactic vaccination and inoculation against unspecified single disease Stage 3 chronic kidney disease, unspecified whether stage 3a or 3b CKD (HCC) Pre-op evaluation- Primary Preoperative examination, unspecified 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) Coronary artery disease involving [place] coronary artery of [place] heart without angina pectoris Paroxysmal atrial fibrillation (HCC) Atrial fibrillation Centrilobular emphysema (HCC) Other emphysema Centrilobular emphysema (HCC) Other emphysema [facility]* Diagnosis Anxiety- Primary Anxiety state, unspecified Essential hypertension Unspecified essential hypertension Hyperlipidemia, unspecified hyperlipidemia type Coronary artery disease involving [place] coronary artery of [place] heart without angina pectoris Cerebrovascular accident (CVA), unspecified mechanism (HCC) Chronic insomnia Insomnia, unspecified Right hemiplegia (HCC) Hemiplegia, unspecified, affecting unspecified side Aphasia as late effect of cerebrovascular accident Aphasia, late effect of cerebrovascular disease Chronic obstructive pulmonary disease, unspecified COPD type (HCC) Left flank pain Abdominal pain, unspecified site Cough, unspecified type Elevated serum creatinine Other nonspecific findings on examination of blood Elevated glucose Other abnormal glucose Respiratory failure, unspecified chronicity, unspecified whether with hypoxia or hypercapnia (HCC) Stage 3a chronic kidney disease (HCC) Aneurysm (HCC) Aneurysm of unspecified site Essential hypertension- Primary Unspecified essential hypertension Anxiety Anxiety state, unspecified Depression, unspecified depression type Hyperlipidemia, unspecified hyperlipidemia type Elevated glucose Other abnormal glucose Cerebrovascular accident (CVA), unspecified mechanism (HCC) Right hemiplegia (HCC) Hemiplegia, unspecified, affecting unspecified side Aphasia as late effect of cerebrovascular accident Aphasia, late effect of cerebrovascular disease Coronary artery disease involving [place] coronary artery of [place] heart without angina pectoris Paroxysmal atrial fibrillation (HCC) Atrial fibrillation Iron deficiency anemia due to chronic blood loss Iron deficiency anemia secondary to blood loss (chronic) Erectile dysfunction, unspecified erectile dysfunction type Chronic obstructive pulmonary disease, unspecified COPD type (HCC) Need for vaccination Need for prophylactic vaccination and inoculation against unspecified single disease Stage 3 chronic kidney disease, unspecified whether stage 3a or 3b CKD (HCC) Pre-op evaluation- Primary Preoperative examination, unspecified 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) Coronary artery disease involving [place] coronary artery of [place] heart without angina pectoris Paroxysmal atrial fibrillation (HCC) Atrial fibrillation Centrilobular emphysema (HCC) Other emphysema Essential hypertension Unspecified essential hypertension Difficulty sleeping Sleep disturbance, unspecified [facility]* Diagnosis Anxiety- Primary Anxiety state, unspecified Essential hypertension Unspecified essential hypertension Hyperlipidemia, unspecified hyperlipidemia type Coronary artery disease involving [place] coronary artery of [place] heart without angina pectoris Cerebrovascular accident (CVA), unspecified mechanism (HCC) Chronic insomnia Insomnia, unspecified Right hemiplegia (HCC) Hemiplegia, unspecified, affecting unspecified side Aphasia as late effect of cerebrovascular accident Aphasia, late effect of cerebrovascular disease Chronic obstructive pulmonary disease, unspecified COPD type (HCC) Left flank pain Abdominal pain, unspecified site Cough, unspecified type Elevated serum creatinine Other nonspecific findings on examination of blood Elevated glucose Other abnormal glucose Respiratory failure, unspecified chronicity, unspecified whether with hypoxia or hypercapnia (HCC) Stage 3a chronic kidney disease (HCC) Aneurysm (HCC) Aneurysm of unspecified site Essential hypertension- Primary Unspecified essential hypertension Anxiety Anxiety state, unspecified Depression, unspecified depression type Hyperlipidemia, unspecified hyperlipidemia type Elevated glucose Other abnormal glucose Cerebrovascular accident (CVA), unspecified mechanism (HCC) Right hemiplegia (HCC) Hemiplegia, unspecified, affecting unspecified side Aphasia as late effect of cerebrovascular accident Aphasia, late effect of cerebrovascular disease Coronary artery disease involving [place] coronary artery of [place] heart without angina pectoris Paroxysmal atrial fibrillation (HCC) Atrial fibrillation Iron deficiency anemia due to chronic blood loss Iron deficiency anemia secondary to blood loss (chronic) Erectile dysfunction, unspecified erectile dysfunction type Chronic obstructive pulmonary disease, unspecified COPD type (HCC) Need for vaccination Need for prophylactic vaccination and inoculation against unspecified single disease Stage 3 chronic kidney disease, unspecified whether stage 3a or 3b CKD (HCC) Pre-op evaluation- Primary Preoperative examination, unspecified 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) Coronary artery disease involving [place] coronary artery of [place] heart without angina pectoris Paroxysmal atrial fibrillation (HCC) Atrial fibrillation Centrilobular emphysema (HCC) Other emphysema Seizure disorder (HCC) Unspecified epilepsy without mention of intractable epilepsy [facility]* Diagnosis Anxiety- Primary Anxiety state, unspecified Essential hypertension Unspecified essential hypertension Hyperlipidemia, unspecified hyperlipidemia type Coronary artery disease involving [place] coronary artery of [place] heart without angina pectoris Cerebrovascular accident (CVA), unspecified mechanism (HCC) Chronic insomnia Insomnia, unspecified Right hemiplegia (HCC) Hemiplegia, unspecified, affecting unspecified side Aphasia as late effect of cerebrovascular accident Aphasia, late effect of cerebrovascular disease Chronic obstructive pulmonary disease, unspecified COPD type (HCC) Left flank pain Abdominal pain, unspecified site Cough, unspecified type Elevated serum creatinine Other nonspecific findings on examination of blood Elevated glucose Other abnormal glucose Respiratory failure, unspecified chronicity, unspecified whether with hypoxia or hypercapnia (HCC) Stage 3a chronic kidney disease (HCC) Aneurysm (HCC) Aneurysm of unspecified site Essential hypertension- Primary Unspecified essential hypertension Anxiety Anxiety state, unspecified Depression, unspecified depression type Hyperlipidemia, unspecified hyperlipidemia type Elevated glucose Other abnormal glucose Cerebrovascular accident (CVA), unspecified mechanism (HCC) Right hemiplegia (HCC) Hemiplegia, unspecified, affecting unspecified side Aphasia as late effect of cerebrovascular accident Aphasia, late effect of cerebrovascular disease Coronary artery disease involving [place] coronary artery of [place] heart without angina pectoris Paroxysmal atrial fibrillation (HCC) Atrial fibrillation Iron deficiency anemia due to chronic blood loss Iron deficiency anemia secondary to blood loss (chronic) Erectile dysfunction, unspecified erectile dysfunction type Chronic obstructive pulmonary disease, unspecified COPD type (HCC) Need for vaccination Need for prophylactic vaccination and inoculation against unspecified single disease Stage 3 chronic kidney disease, unspecified whether stage 3a or 3b CKD (HCC) Pre-op evaluation- Primary Preoperative examination, unspecified 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) Coronary artery disease involving [place] coronary artery of [place] heart without angina pectoris Paroxysmal atrial fibrillation (HCC) Atrial fibrillation Centrilobular emphysema (HCC) Other emphysema Cervicalgia [facility] [place] [facility]* Diagnosis Anxiety- Primary Anxiety state, unspecified Essential hypertension Unspecified essential hypertension Hyperlipidemia, unspecified hyperlipidemia type Coronary artery disease involving [place] coronary artery of [place] heart without angina pectoris Cerebrovascular accident (CVA), unspecified mechanism (HCC) Chronic insomnia Insomnia, unspecified Right hemiplegia (HCC) Hemiplegia, unspecified, affecting unspecified side Aphasia as late effect of cerebrovascular accident Aphasia, late effect of cerebrovascular disease Chronic obstructive pulmonary disease, unspecified COPD type (HCC) Left flank pain Abdominal pain, unspecified site Cough, unspecified type Elevated serum creatinine Other nonspecific findings on examination of blood Elevated glucose Other abnormal glucose Respiratory failure, unspecified chronicity, unspecified whether with hypoxia or hypercapnia (HCC) Stage 3a chronic kidney disease (HCC) Aneurysm (HCC) Aneurysm of unspecified site Essential hypertension- Primary Unspecified essential hypertension Anxiety Anxiety state, unspecified Depression, unspecified depression type Hyperlipidemia, unspecified hyperlipidemia type Elevated glucose Other abnormal glucose Cerebrovascular accident (CVA), unspecified mechanism (HCC) Right hemiplegia (HCC) Hemiplegia, unspecified, affecting unspecified side Aphasia as late effect of cerebrovascular accident Aphasia, late effect of cerebrovascular disease Coronary artery disease involving [place] coronary artery of [place] heart without angina pectoris Paroxysmal atrial fibrillation (HCC) Atrial fibrillation Iron deficiency anemia due to chronic blood loss Iron deficiency anemia secondary to blood loss (chronic) Erectile dysfunction, unspecified erectile dysfunction type Chronic obstructive pulmonary disease, unspecified COPD type (HCC) Need for vaccination Need for prophylactic vaccination and inoculation against unspecified single disease Stage 3 chronic kidney disease, unspecified whether stage 3a or 3b CKD (HCC) Pre-op evaluation- Primary Preoperative examination, unspecified 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) Coronary artery disease involving [place] coronary artery of [place] heart without angina pectoris Paroxysmal atrial fibrillation (HCC) Atrial fibrillation Centrilobular emphysema (HCC) Other emphysema Anxiety Anxiety state, unspecified Chronic insomnia Insomnia, unspecified documented in this encounter [facility] note* Diagnosis Anxiety- Primary Anxiety state, unspecified Essential hypertension Unspecified essential hypertension Hyperlipidemia, unspecified hyperlipidemia type Coronary artery disease involving [place] coronary artery of [place] heart without angina pectoris Cerebrovascular accident (CVA), unspecified mechanism (HCC) Chronic insomnia Insomnia, unspecified Right hemiplegia (HCC) Hemiplegia, unspecified, affecting unspecified side Aphasia as late effect of cerebrovascular accident Aphasia, late effect of cerebrovascular disease Chronic obstructive pulmonary disease, unspecified COPD type (HCC) Left flank pain Abdominal pain, unspecified site Cough, unspecified type Elevated serum creatinine Other nonspecific findings on examination of blood Elevated glucose Other abnormal glucose Respiratory failure, unspecified chronicity, unspecified whether with hypoxia or hypercapnia (HCC) Stage 3a chronic kidney disease (HCC) Aneurysm (HCC) Aneurysm of unspecified site Essential hypertension- Primary Unspecified essential hypertension Anxiety Anxiety state, unspecified Depression, unspecified depression type Hyperlipidemia, unspecified hyperlipidemia type Elevated glucose Other abnormal glucose Cerebrovascular accident (CVA), unspecified mechanism (HCC) Right hemiplegia (HCC) Hemiplegia, unspecified, affecting unspecified side Aphasia as late effect of cerebrovascular accident Aphasia, late effect of cerebrovascular disease Coronary artery disease involving [place] coronary artery of [place] heart without angina pectoris Paroxysmal atrial fibrillation (HCC) Atrial fibrillation Iron deficiency anemia due to chronic blood loss Iron deficiency anemia secondary to blood loss (chronic) Erectile dysfunction, unspecified erectile dysfunction type Chronic obstructive pulmonary disease, unspecified COPD type (HCC) Need for vaccination Need for prophylactic vaccination and inoculation against unspecified single disease Stage 3 chronic kidney disease, unspecified whether stage 3a or 3b CKD (HCC) Pre-op evaluation- Primary Preoperative examination, unspecified 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) Coronary artery disease involving [place] coronary artery of [place] heart without angina pectoris Paroxysmal atrial fibrillation (HCC) Atrial fibrillation Centrilobular emphysema (HCC) Other emphysema 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, without mention of intractable epilepsy Seizure disorder (HCC) Unspecified epilepsy without mention of intractable epilepsy Seizure (HCC) Other convulsions [facility]* Diagnosis Anxiety- Primary Anxiety state, unspecified Essential hypertension Unspecified essential hypertension Hyperlipidemia, unspecified hyperlipidemia type Coronary artery disease involving [place] coronary artery of [place] heart without angina pectoris Cerebrovascular accident (CVA), unspecified mechanism (HCC) Chronic insomnia Insomnia, unspecified Right hemiplegia (HCC) Hemiplegia, unspecified, affecting unspecified side Aphasia as late effect of cerebrovascular accident Aphasia, late effect of cerebrovascular disease Chronic obstructive pulmonary disease, unspecified COPD type (HCC) Left flank pain Abdominal pain, unspecified site Cough, unspecified type Elevated serum creatinine Other nonspecific findings on examination of blood Elevated glucose Other abnormal glucose Respiratory failure, unspecified chronicity, unspecified whether with hypoxia or hypercapnia (HCC) Stage 3a chronic kidney disease (HCC) Aneurysm (HCC) Aneurysm of unspecified site Essential hypertension- Primary Unspecified essential hypertension Anxiety Anxiety state, unspecified Depression, unspecified depression type Hyperlipidemia, unspecified hyperlipidemia type Elevated glucose Other abnormal glucose Cerebrovascular accident (CVA), unspecified mechanism (HCC) Right hemiplegia (HCC) Hemiplegia, unspecified, affecting unspecified side Aphasia as late effect of cerebrovascular accident Aphasia, late effect of cerebrovascular disease Coronary artery disease involving [place] coronary artery of [place] heart without angina pectoris Paroxysmal atrial fibrillation (HCC) Atrial fibrillation Iron deficiency anemia due to chronic blood loss Iron deficiency anemia secondary to blood loss (chronic) Erectile dysfunction, unspecified erectile dysfunction type Chronic obstructive pulmonary disease, unspecified COPD type (HCC) Need for vaccination Need for prophylactic vaccination and inoculation against unspecified single disease Stage 3 chronic kidney disease, unspecified whether stage 3a or 3b CKD (HCC) Pre-op evaluation- Primary Preoperative examination, unspecified 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) Coronary artery disease involving [place] coronary artery of [place] heart without angina pectoris Paroxysmal atrial fibrillation (HCC) Atrial fibrillation Centrilobular emphysema (HCC) Other emphysema Centrilobular emphysema (HCC) Other emphysema [facility]* Diagnosis Anxiety- Primary Anxiety state, unspecified Essential hypertension Unspecified essential hypertension Hyperlipidemia, unspecified hyperlipidemia type Coronary artery disease involving [place] coronary artery of [place] heart without angina pectoris Cerebrovascular accident (CVA), unspecified mechanism (HCC) Chronic insomnia Insomnia, unspecified Right hemiplegia (HCC) Hemiplegia, unspecified, affecting unspecified side Aphasia as late effect of cerebrovascular accident Aphasia, late effect of cerebrovascular disease Chronic obstructive pulmonary disease, unspecified COPD type (HCC) Left flank pain Abdominal pain, unspecified site Cough, unspecified type Elevated serum creatinine Other nonspecific findings on examination of blood Elevated glucose Other abnormal glucose Respiratory failure, unspecified chronicity, unspecified whether with hypoxia or hypercapnia (HCC) Stage 3a chronic kidney disease (HCC) Aneurysm (HCC) Aneurysm of unspecified site Essential hypertension- Primary Unspecified essential hypertension Anxiety Anxiety state, unspecified Depression, unspecified depression type Hyperlipidemia, unspecified hyperlipidemia type Elevated glucose Other abnormal glucose Cerebrovascular accident (CVA), unspecified mechanism (HCC) Right hemiplegia (HCC) Hemiplegia, unspecified, affecting unspecified side Aphasia as late effect of cerebrovascular accident Aphasia, late effect of cerebrovascular disease Coronary artery disease involving [place] coronary artery of [place] heart without angina pectoris Paroxysmal atrial fibrillation (HCC) Atrial fibrillation Iron deficiency anemia due to chronic blood loss Iron deficiency anemia secondary to blood loss (chronic) Erectile dysfunction, unspecified erectile dysfunction type Chronic obstructive pulmonary disease, unspecified COPD type (HCC) Need for vaccination Need for prophylactic vaccination and inoculation against unspecified single disease Stage 3 chronic kidney disease, unspecified whether stage 3a or 3b CKD (HCC) Pre-op evaluation- Primary Preoperative examination, unspecified 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) Coronary artery disease involving [place] coronary artery of [place] heart without angina pectoris Paroxysmal atrial fibrillation (HCC) Atrial fibrillation Centrilobular emphysema (HCC) Other emphysema Occlusion of left carotid artery- Primary Occlusion and stenosis of carotid artery without mention of cerebral infarction Subclavian artery stenosis, left (HCC) Atherosclerosis of other specified arteries [facility] Anxiety- Primary Anxiety state, unspecified Essential hypertension Unspecified essential hypertension Hyperlipidemia, unspecified hyperlipidemia type Coronary artery disease involving [place] coronary artery of [place] heart without angina pectoris Cerebrovascular accident (CVA), unspecified mechanism (HCC) Chronic insomnia Insomnia, unspecified Right hemiplegia (HCC) Hemiplegia, unspecified, affecting unspecified side Aphasia as late effect of cerebrovascular accident Aphasia, late effect of cerebrovascular disease Chronic obstructive pulmonary disease, unspecified COPD type (HCC) Left flank pain Abdominal pain, unspecified site Cough, unspecified type Elevated serum creatinine Other nonspecific findings on examination of blood Elevated glucose Other abnormal glucose Respiratory failure, unspecified chronicity, unspecified whether with hypoxia or hypercapnia (HCC) Stage 3a chronic kidney disease (HCC) Aneurysm (HCC) Aneurysm of unspecified site Essential hypertension- Primary Unspecified essential hypertension Anxiety Anxiety state, unspecified Depression, unspecified depression type Hyperlipidemia, unspecified hyperlipidemia type Elevated glucose Other abnormal glucose Cerebrovascular accident (CVA), unspecified mechanism (HCC) Right hemiplegia (HCC) Hemiplegia, unspecified, affecting unspecified side Aphasia as late effect of cerebrovascular accident Aphasia, late effect of cerebrovascular disease Coronary artery disease involving [place] coronary artery of [place] heart without angina pectoris Paroxysmal atrial fibrillation (HCC) Atrial fibrillation Iron deficiency anemia due to chronic blood loss Iron deficiency anemia secondary to blood loss (chronic) Erectile dysfunction, unspecified erectile dysfunction type Chronic obstructive pulmonary disease, unspecified COPD type (HCC) Need for vaccination Need for prophylactic vaccination and inoculation against unspecified single disease Stage 3 chronic kidney disease, unspecified whether stage 3a or 3b CKD (HCC) Pre-op evaluation- Primary Preoperative examination, unspecified 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) Coronary artery disease involving [place] coronary artery of [place] heart without angina pectoris Paroxysmal atrial fibrillation (HCC) Atrial fibrillation Centrilobular emphysema (HCC) Other emphysema Cough [facility] Diagnosis Anxiety- Primary Anxiety state, unspecified Essential hypertension Unspecified essential hypertension Hyperlipidemia, unspecified hyperlipidemia type Coronary artery disease involving [place] coronary artery of [place] heart without angina pectoris Cerebrovascular accident (CVA), unspecified mechanism (HCC) Chronic insomnia Insomnia, unspecified Right hemiplegia (HCC) Hemiplegia, unspecified, affecting unspecified side Aphasia as late effect of cerebrovascular accident Aphasia, late effect of cerebrovascular disease Chronic obstructive pulmonary disease, unspecified COPD type (HCC) Left flank pain Abdominal pain, unspecified site Cough, unspecified type Elevated serum creatinine Other nonspecific findings on examination of blood Elevated glucose Other abnormal glucose Respiratory failure, unspecified chronicity, unspecified whether with hypoxia or hypercapnia (HCC) Stage 3a chronic kidney disease (HCC) Aneurysm (HCC) Aneurysm of unspecified site Essential hypertension- Primary Unspecified essential hypertension Anxiety Anxiety state, unspecified Depression, unspecified depression type Hyperlipidemia, unspecified hyperlipidemia type Elevated glucose Other abnormal glucose Cerebrovascular accident (CVA), unspecified mechanism (HCC) Right hemiplegia (HCC) Hemiplegia, unspecified, affecting unspecified side Aphasia as late effect of cerebrovascular accident Aphasia, late effect of cerebrovascular disease Coronary artery disease involving [place] coronary artery of [place] heart without angina pectoris Paroxysmal atrial fibrillation (HCC) Atrial fibrillation Iron deficiency anemia due to chronic blood loss Iron deficiency anemia secondary to blood loss (chronic) Erectile dysfunction, unspecified erectile dysfunction type Chronic obstructive pulmonary disease, unspecified COPD type (HCC) Need for vaccination Need for prophylactic vaccination and inoculation against unspecified single disease Stage 3 chronic kidney disease, unspecified whether stage 3a or 3b CKD (HCC) Pre-op evaluation- Primary Preoperative examination, unspecified 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) Coronary artery disease involving [place] coronary artery of [place] heart without angina pectoris Paroxysmal atrial fibrillation (HCC) Atrial fibrillation Centrilobular emphysema (HCC) Other emphysema COPD, moderate (HCC)- Primary Chronic airway obstruction, not elsewhere classified Former cigarette smoker Personal history of tobacco use, presenting hazards to health Dependence on nocturnal oxygen therapy [facility] Diagnosis Anxiety- Primary Anxiety state, unspecified Essential hypertension Unspecified essential hypertension Hyperlipidemia, unspecified hyperlipidemia type Coronary artery disease involving [place] coronary artery of [place] heart without angina pectoris Cerebrovascular accident (CVA), unspecified mechanism (HCC) Chronic insomnia Insomnia, unspecified Right hemiplegia (HCC) Hemiplegia, unspecified, affecting unspecified side Aphasia as late effect of cerebrovascular accident Aphasia, late effect of cerebrovascular disease Chronic obstructive pulmonary disease, unspecified COPD type (HCC) Left flank pain Abdominal pain, unspecified site Cough, unspecified type Elevated serum creatinine Other nonspecific findings on examination of blood Elevated glucose Other abnormal glucose Respiratory failure, unspecified chronicity, unspecified whether with hypoxia or hypercapnia (HCC) Stage 3a chronic kidney disease (HCC) Aneurysm (HCC) Aneurysm of unspecified site Essential hypertension- Primary Unspecified essential hypertension Anxiety Anxiety state, unspecified Depression, unspecified depression type Hyperlipidemia, unspecified hyperlipidemia type Elevated glucose Other abnormal glucose Cerebrovascular accident (CVA), unspecified mechanism (HCC) Right hemiplegia (HCC) Hemiplegia, unspecified, affecting unspecified side Aphasia as late effect of cerebrovascular accident Aphasia, late effect of cerebrovascular disease Coronary artery disease involving [place] coronary artery of [place] heart without angina pectoris Paroxysmal atrial fibrillation (HCC) Atrial fibrillation Iron deficiency anemia due to chronic blood loss Iron deficiency anemia secondary to blood loss (chronic) Erectile dysfunction, unspecified erectile dysfunction type Chronic obstructive pulmonary disease, unspecified COPD type (HCC) Need for vaccination Need for prophylactic vaccination and inoculation against unspecified single disease Stage 3 chronic kidney disease, unspecified whether stage 3a or 3b CKD (HCC) Pre-op evaluation- Primary Preoperative examination, unspecified 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) Coronary artery disease involving [place] coronary artery of [place] heart without angina pectoris Paroxysmal atrial fibrillation (HCC) Atrial fibrillation Centrilobular emphysema (HCC) Other emphysema Hospital discharge follow-up- Primary Other follow-up examination Falls frequently Personal history of fall Generalized weakness Other malaise and fatigue Unsteady gait Abnormality of gait Cerebrovascular accident (CVA), unspecified mechanism (HCC) Paroxysmal atrial fibrillation (HCC) Atrial fibrillation Seizure disorder (HCC) Unspecified epilepsy without mention of intractable epilepsy [facility] Diagnosis Anxiety- Primary Anxiety state, unspecified Essential hypertension Unspecified essential hypertension Hyperlipidemia, unspecified hyperlipidemia type Coronary artery disease involving [place] coronary artery of [place] heart without angina pectoris Cerebrovascular accident (CVA), unspecified mechanism (HCC) Chronic insomnia Insomnia, unspecified Right hemiplegia (HCC) Hemiplegia, unspecified, affecting unspecified side Aphasia as late effect of cerebrovascular accident Aphasia, late effect of cerebrovascular disease Chronic obstructive pulmonary disease, unspecified COPD type (HCC) Left flank pain Abdominal pain, unspecified site Cough, unspecified type Elevated serum creatinine Other nonspecific findings on examination of blood Elevated glucose Other abnormal glucose Respiratory failure, unspecified chronicity, unspecified whether with hypoxia or hypercapnia (HCC) Stage 3a chronic kidney disease (HCC) Aneurysm (HCC) Aneurysm of unspecified site Essential hypertension- Primary Unspecified essential hypertension Anxiety Anxiety state, unspecified Depression, unspecified depression type Hyperlipidemia, unspecified hyperlipidemia type Elevated glucose Other abnormal glucose Cerebrovascular accident (CVA), unspecified mechanism (HCC) Right hemiplegia (HCC) Hemiplegia, unspecified, affecting unspecified side Aphasia as late effect of cerebrovascular accident Aphasia, late effect of cerebrovascular disease Coronary artery disease involving [place] coronary artery of [place] heart without angina pectoris Paroxysmal atrial fibrillation (HCC) Atrial fibrillation Iron deficiency anemia due to chronic blood loss Iron deficiency anemia secondary to blood loss (chronic) Erectile dysfunction, unspecified erectile dysfunction type Chronic obstructive pulmonary disease, unspecified COPD type (HCC) Need for vaccination Need for prophylactic vaccination and inoculation against unspecified single disease Stage 3 chronic kidney disease, unspecified whether stage 3a or 3b CKD (HCC) Pre-op evaluation- Primary Preoperative examination, unspecified 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) Coronary artery disease involving [place] coronary artery of [place] heart without angina pectoris Paroxysmal atrial fibrillation (HCC) Atrial fibrillation Centrilobular emphysema (HCC) Other emphysema 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, without mention of intractable epilepsy [facility] Diagnosis Anxiety- Primary Anxiety state, unspecified Essential hypertension Unspecified essential hypertension Hyperlipidemia, unspecified hyperlipidemia type Coronary artery disease involving [place] coronary artery of [place] heart without angina pectoris Cerebrovascular accident (CVA), unspecified mechanism (HCC) Chronic insomnia Insomnia, unspecified Right hemiplegia (HCC) Hemiplegia, unspecified, affecting unspecified side Aphasia as late effect of cerebrovascular accident Aphasia, late effect of cerebrovascular disease Chronic obstructive pulmonary disease, unspecified COPD type (HCC) Left flank pain Abdominal pain, unspecified site Cough, unspecified type Elevated serum creatinine Other nonspecific findings on examination of blood Elevated glucose Other abnormal glucose Respiratory failure, unspecified chronicity, unspecified whether with hypoxia or hypercapnia (HCC) Stage 3a chronic kidney disease (HCC) Aneurysm (HCC) Aneurysm of unspecified site Essential hypertension- Primary Unspecified essential hypertension Anxiety Anxiety state, unspecified Depression, unspecified depression type Hyperlipidemia, unspecified hyperlipidemia type Elevated glucose Other abnormal glucose Cerebrovascular accident (CVA), unspecified mechanism (HCC) Right hemiplegia (HCC) Hemiplegia, unspecified, affecting unspecified side Aphasia as late effect of cerebrovascular accident Aphasia, late effect of cerebrovascular disease Coronary artery disease involving [place] coronary artery of [place] heart without angina pectoris Paroxysmal atrial fibrillation (HCC) Atrial fibrillation Iron deficiency anemia due to chronic blood loss Iron deficiency anemia secondary to blood loss (chronic) Erectile dysfunction, unspecified erectile dysfunction type Chronic obstructive pulmonary disease, unspecified COPD type (HCC) Need for vaccination Need for prophylactic vaccination and inoculation against unspecified single disease Stage 3 chronic kidney disease, unspecified whether stage 3a or 3b CKD (HCC) Pre-op evaluation- Primary Preoperative examination, unspecified 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) Coronary artery disease involving [place] coronary artery of [place] heart without angina pectoris Paroxysmal atrial fibrillation (HCC) Atrial fibrillation Centrilobular emphysema (HCC) Other emphysema 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 Cerebrovascular accident (CVA), unspecified mechanism (HCC) [facility] Diagnosis Anxiety- Primary Anxiety state, unspecified Essential hypertension Unspecified essential hypertension Hyperlipidemia, unspecified hyperlipidemia type Coronary artery disease involving [place] coronary artery of [place] heart without angina pectoris Cerebrovascular accident (CVA), unspecified mechanism (HCC) Chronic insomnia Insomnia, unspecified Right hemiplegia (HCC) Hemiplegia, unspecified, affecting unspecified side Aphasia as late effect of cerebrovascular accident Aphasia, late effect of cerebrovascular disease Chronic obstructive pulmonary disease, unspecified COPD type (HCC) Left flank pain Abdominal pain, unspecified site Cough, unspecified type Elevated serum creatinine Other nonspecific findings on examination of blood Elevated glucose Other abnormal glucose Respiratory failure, unspecified chronicity, unspecified whether with hypoxia or hypercapnia (HCC) Stage 3a chronic kidney disease (HCC) Aneurysm (HCC) Aneurysm of unspecified site Essential hypertension- Primary Unspecified essential hypertension Anxiety Anxiety state, unspecified Depression, unspecified depression type Hyperlipidemia, unspecified hyperlipidemia type Elevated glucose Other abnormal glucose Cerebrovascular accident (CVA), unspecified mechanism (HCC) Right hemiplegia (HCC) Hemiplegia, unspecified, affecting unspecified side Aphasia as late effect of cerebrovascular accident Aphasia, late effect of cerebrovascular disease Coronary artery disease involving [place] coronary artery of [place] heart without angina pectoris Paroxysmal atrial fibrillation (HCC) Atrial fibrillation Iron deficiency anemia due to chronic blood loss Iron deficiency anemia secondary to blood loss (chronic) Erectile dysfunction, unspecified erectile dysfunction type Chronic obstructive pulmonary disease, unspecified COPD type (HCC) Need for vaccination Need for prophylactic vaccination and inoculation against unspecified single disease Stage 3 chronic kidney disease, unspecified whether stage 3a or 3b CKD (HCC) Pre-op evaluation- Primary Preoperative examination, unspecified 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) Coronary artery disease involving [place] coronary artery of [place] heart without angina pectoris Paroxysmal atrial fibrillation (HCC) Atrial fibrillation Centrilobular emphysema (HCC) Other emphysema Seizure (HCC) Other convulsions 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, without mention of intractable epilepsy [facility] Diagnosis Anxiety- Primary Anxiety state, unspecified Essential hypertension Unspecified essential hypertension Hyperlipidemia, unspecified hyperlipidemia type Coronary artery disease involving [place] coronary artery of [place] heart without angina pectoris Cerebrovascular accident (CVA), unspecified mechanism (HCC) Chronic insomnia Insomnia, unspecified Right hemiplegia (HCC) Hemiplegia, unspecified, affecting unspecified side Aphasia as late effect of cerebrovascular accident Aphasia, late effect of cerebrovascular disease Chronic obstructive pulmonary disease, unspecified COPD type (HCC) Left flank pain Abdominal pain, unspecified site Cough, unspecified type Elevated serum creatinine Other nonspecific findings on examination of blood Elevated glucose Other abnormal glucose Respiratory failure, unspecified chronicity, unspecified whether with hypoxia or hypercapnia (HCC) Stage 3a chronic kidney disease (HCC) Aneurysm Aneurysm of unspecified site Essential hypertension- Primary Unspecified essential hypertension Anxiety Anxiety state, unspecified Depression, unspecified depression type Hyperlipidemia, unspecified hyperlipidemia type Elevated glucose Other abnormal glucose Cerebrovascular accident (CVA), unspecified mechanism (HCC) Right hemiplegia (HCC) Hemiplegia, unspecified, affecting unspecified side Aphasia as late effect of cerebrovascular accident Aphasia, late effect of cerebrovascular disease Coronary artery disease involving [place] coronary artery of [place] heart without angina pectoris Paroxysmal atrial fibrillation (HCC) Atrial fibrillation Iron deficiency anemia due to chronic blood loss Iron deficiency anemia secondary to blood loss (chronic) Erectile dysfunction, unspecified erectile dysfunction type Chronic obstructive pulmonary disease, unspecified COPD type (HCC) Need for vaccination Need for prophylactic vaccination and inoculation against unspecified single disease Stage 3 chronic kidney disease, unspecified whether stage 3a or 3b CKD (HCC) Pre-op evaluation- Primary Preoperative examination, unspecified 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) Coronary artery disease involving [place] coronary artery of [place] heart without angina pectoris Paroxysmal atrial fibrillation (HCC) Atrial fibrillation Centrilobular emphysema (HCC) Other emphysema Occlusion of left carotid artery- Primary Occlusion and stenosis of carotid artery without mention of cerebral infarction Subclavian artery stenosis, left Atherosclerosis of other specified arteries [facility] Diagnosis Anxiety- Primary Anxiety state, unspecified Essential hypertension Unspecified essential hypertension Hyperlipidemia, unspecified hyperlipidemia type Coronary artery disease involving [place] coronary artery of [place] heart without angina pectoris Cerebrovascular accident (CVA), unspecified mechanism (HCC) Chronic insomnia Insomnia, unspecified Right hemiplegia (HCC) Hemiplegia, unspecified, affecting unspecified side Aphasia as late effect of cerebrovascular accident Aphasia, late effect of cerebrovascular disease Chronic obstructive pulmonary disease, unspecified COPD type (HCC) Left flank pain Abdominal pain, unspecified site Cough, unspecified type Elevated serum creatinine Other nonspecific findings on examination of blood Elevated glucose Other abnormal glucose Respiratory failure, unspecified chronicity, unspecified whether with hypoxia or hypercapnia (HCC) Stage 3a chronic kidney disease (HCC) Aneurysm Aneurysm of unspecified site Essential hypertension- Primary Unspecified essential hypertension Anxiety Anxiety state, unspecified Depression, unspecified depression type Hyperlipidemia, unspecified hyperlipidemia type Elevated glucose Other abnormal glucose Cerebrovascular accident (CVA), unspecified mechanism (HCC) Right hemiplegia (HCC) Hemiplegia, unspecified, affecting unspecified side Aphasia as late effect of cerebrovascular accident Aphasia, late effect of cerebrovascular disease Coronary artery disease involving [place] coronary artery of [place] heart without angina pectoris Paroxysmal atrial fibrillation (HCC) Atrial fibrillation Iron deficiency anemia due to chronic blood loss Iron deficiency anemia secondary to blood loss (chronic) Erectile dysfunction, unspecified erectile dysfunction type Chronic obstructive pulmonary disease, unspecified COPD type (HCC) Need for vaccination Need for prophylactic vaccination and inoculation against unspecified single disease Stage 3 chronic kidney disease, unspecified whether stage 3a or 3b CKD (HCC) Pre-op evaluation- Primary Preoperative examination, unspecified 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) Coronary artery disease involving [place] coronary artery of [place] heart without angina pectoris Paroxysmal atrial fibrillation (HCC) Atrial fibrillation Centrilobular emphysema (HCC) Other emphysema Acute cough- Primary [facility] Diagnosis Anxiety- Primary Anxiety state, unspecified Essential hypertension Unspecified essential hypertension Hyperlipidemia, unspecified hyperlipidemia type Coronary artery disease involving [place] coronary artery of [place] heart without angina pectoris Cerebrovascular accident (CVA), unspecified mechanism (HCC) Chronic insomnia Insomnia, unspecified Right hemiplegia (HCC) Hemiplegia, unspecified, affecting unspecified side Aphasia as late effect of cerebrovascular accident Aphasia, late effect of cerebrovascular disease Chronic obstructive pulmonary disease, unspecified COPD type (HCC) Left flank pain Abdominal pain, unspecified site Cough, unspecified type Elevated serum creatinine Other nonspecific findings on examination of blood Elevated glucose Other abnormal glucose Respiratory failure, unspecified chronicity, unspecified whether with hypoxia or hypercapnia (HCC) Stage 3a chronic kidney disease (HCC) Aneurysm Aneurysm of unspecified site Essential hypertension- Primary Unspecified essential hypertension Anxiety Anxiety state, unspecified Depression, unspecified depression type Hyperlipidemia, unspecified hyperlipidemia type Elevated glucose Other abnormal glucose Cerebrovascular accident (CVA), unspecified mechanism (HCC) Right hemiplegia (HCC) Hemiplegia, unspecified, affecting unspecified side Aphasia as late effect of cerebrovascular accident Aphasia, late effect of cerebrovascular disease Coronary artery disease involving [place] coronary artery of [place] heart without angina pectoris Paroxysmal atrial fibrillation (HCC) Atrial fibrillation Iron deficiency anemia due to chronic blood loss Iron deficiency anemia secondary to blood loss (chronic) Erectile dysfunction, unspecified erectile dysfunction type Chronic obstructive pulmonary disease, unspecified COPD type (HCC) Need for vaccination Need for prophylactic vaccination and inoculation against unspecified single disease Stage 3 chronic kidney disease, unspecified whether stage 3a or 3b CKD (HCC) Pre-op evaluation- Primary Preoperative examination, unspecified 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) Coronary artery disease involving [place] coronary artery of [place] heart without angina pectoris Paroxysmal atrial fibrillation (HCC) Atrial fibrillation Centrilobular emphysema (HCC) Other emphysema Seizure (HCC)- Primary Other convulsions documented in this encounter [facility] [place] [facility]* Diagnosis Anxiety- Primary Anxiety state, unspecified Essential hypertension Unspecified essential hypertension Hyperlipidemia, unspecified hyperlipidemia type Coronary artery disease involving [place] coronary artery of [place] heart without angina pectoris Cerebrovascular accident (CVA), unspecified mechanism (HCC) Chronic insomnia Insomnia, unspecified Right hemiplegia (HCC) Hemiplegia, unspecified, affecting unspecified side Aphasia as late effect of cerebrovascular accident Aphasia, late effect of cerebrovascular disease Chronic obstructive pulmonary disease, unspecified COPD type (HCC) Left flank pain Abdominal pain, unspecified site Cough, unspecified type Elevated serum creatinine Other nonspecific findings on examination of blood Elevated glucose Other abnormal glucose Respiratory failure, unspecified chronicity, unspecified whether with hypoxia or hypercapnia (HCC) Stage 3a chronic kidney disease (HCC) Aneurysm Aneurysm of unspecified site Essential hypertension- Primary Unspecified essential hypertension Anxiety Anxiety state, unspecified Depression, unspecified depression type Hyperlipidemia, unspecified hyperlipidemia type Elevated glucose Other abnormal glucose Cerebrovascular accident (CVA), unspecified mechanism (HCC) Right hemiplegia (HCC) Hemiplegia, unspecified, affecting unspecified side Aphasia as late effect of cerebrovascular accident Aphasia, late effect of cerebrovascular disease Coronary artery disease involving [place] coronary artery of [place] heart without angina pectoris Paroxysmal atrial fibrillation (HCC) Atrial fibrillation Iron deficiency anemia due to chronic blood loss Iron deficiency anemia secondary to blood loss (chronic) Erectile dysfunction, unspecified erectile dysfunction type Chronic obstructive pulmonary disease, unspecified COPD type (HCC) Need for vaccination Need for prophylactic vaccination and inoculation against unspecified single disease Stage 3 chronic kidney disease, unspecified whether stage 3a or 3b CKD (HCC) Pre-op evaluation- Primary Preoperative examination, unspecified 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) Coronary artery disease involving [place] coronary artery of [place] heart without angina pectoris Paroxysmal atrial fibrillation (HCC) Atrial fibrillation Centrilobular emphysema (HCC) Other emphysema Essential hypertension- Primary Unspecified essential hypertension Cervicalgia Anxiety Anxiety state, unspecified Hyperlipidemia, unspecified hyperlipidemia type Seizure (HCC) Other convulsions 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, without mention of intractable epilepsy Centrilobular emphysema (HCC) Other emphysema Chronic respiratory failure with hypoxia (HCC) Chronic respiratory failure Chronic insomnia Insomnia, unspecified Acute cough Moderate recurrent major depression (HCC) Major depressive disorder, recurrent episode, moderate CVA, old, hemiparesis (HCC) Hemiplegia affecting unspecified side, late effect of cerebrovascular disease Stage 3a chronic kidney disease (HCC) [facility] [place] [facility] Diagnosis Anxiety- Primary Anxiety state, unspecified Essential hypertension Unspecified essential hypertension Hyperlipidemia, unspecified hyperlipidemia type Coronary artery disease involving [place] coronary artery of [place] heart without angina pectoris Cerebrovascular accident (CVA), unspecified mechanism (HCC) Chronic insomnia Insomnia, unspecified Right hemiplegia (HCC) Hemiplegia, unspecified, affecting unspecified side Aphasia as late effect of cerebrovascular accident Aphasia, late effect of cerebrovascular disease Chronic obstructive pulmonary disease, unspecified COPD type (HCC) Left flank pain Abdominal pain, unspecified site Cough, unspecified type Elevated serum creatinine Other nonspecific findings on examination of blood Elevated glucose Other abnormal glucose Respiratory failure, unspecified chronicity, unspecified whether with hypoxia or hypercapnia (HCC) Stage 3a chronic kidney disease (HCC) Aneurysm Aneurysm of unspecified site Essential hypertension- Primary Unspecified essential hypertension Anxiety Anxiety state, unspecified Depression, unspecified depression type Hyperlipidemia, unspecified hyperlipidemia type Elevated glucose Other abnormal glucose Cerebrovascular accident (CVA), unspecified mechanism (HCC) Right hemiplegia (HCC) Hemiplegia, unspecified, affecting unspecified side Aphasia as late effect of cerebrovascular accident Aphasia, late effect of cerebrovascular disease Coronary artery disease involving [place] coronary artery of [place] heart without angina pectoris Paroxysmal atrial fibrillation (HCC) Atrial fibrillation Iron deficiency anemia due to chronic blood loss Iron deficiency anemia secondary to blood loss (chronic) Erectile dysfunction, unspecified erectile dysfunction type Chronic obstructive pulmonary disease, unspecified COPD type (HCC) Need for vaccination Need for prophylactic vaccination and inoculation against unspecified single disease Stage 3 chronic kidney disease, unspecified whether stage 3a or 3b CKD (HCC) Pre-op evaluation- Primary Preoperative examination, unspecified 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) Coronary artery disease involving [place] coronary artery of [place] heart without angina pectoris Paroxysmal atrial fibrillation (HCC) Atrial fibrillation Centrilobular emphysema (HCC) Other emphysema Tobacco abuse Tobacco use disorder [facility] Diagnosis Anxiety- Primary Anxiety state, unspecified Essential hypertension Unspecified essential hypertension Hyperlipidemia, unspecified hyperlipidemia type Coronary artery disease involving [place] coronary artery of [place] heart without angina pectoris Cerebrovascular accident (CVA), unspecified mechanism (HCC) Chronic insomnia Insomnia, unspecified Right hemiplegia (HCC) Hemiplegia, unspecified, affecting unspecified side Aphasia as late effect of cerebrovascular accident Aphasia, late effect of cerebrovascular disease Chronic obstructive pulmonary disease, unspecified COPD type (HCC) Left flank pain Abdominal pain, unspecified site Cough, unspecified type Elevated serum creatinine Other nonspecific findings on examination of blood Elevated glucose Other abnormal glucose Respiratory failure, unspecified chronicity, unspecified whether with hypoxia or hypercapnia (HCC) Stage 3a chronic kidney disease (HCC) Aneurysm Aneurysm of unspecified site Essential hypertension- Primary Unspecified essential hypertension Anxiety Anxiety state, unspecified Depression, unspecified depression type Hyperlipidemia, unspecified hyperlipidemia type Elevated glucose Other abnormal glucose Cerebrovascular accident (CVA), unspecified mechanism (HCC) Right hemiplegia (HCC) Hemiplegia, unspecified, affecting unspecified side Aphasia as late effect of cerebrovascular accident Aphasia, late effect of cerebrovascular disease Coronary artery disease involving [place] coronary artery of [place] heart without angina pectoris Paroxysmal atrial fibrillation (HCC) Atrial fibrillation Iron deficiency anemia due to chronic blood loss Iron deficiency anemia secondary to blood loss (chronic) Erectile dysfunction, unspecified erectile dysfunction type Chronic obstructive pulmonary disease, unspecified COPD type (HCC) Need for vaccination Need for prophylactic vaccination and inoculation against unspecified single disease Stage 3 chronic kidney disease, unspecified whether stage 3a or 3b CKD (HCC) Pre-op evaluation- Primary Preoperative examination, unspecified 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) Coronary artery disease involving [place] coronary artery of [place] heart without angina pectoris Paroxysmal atrial fibrillation (HCC) Atrial fibrillation Centrilobular emphysema (HCC) Other emphysema Coronary artery disease involving [place] coronary artery of [place] heart without angina pectoris- Primary Paroxysmal atrial fibrillation (HCC) Atrial fibrillation Essential hypertension Unspecified essential hypertension Mixed hyperlipidemia Occlusion of left carotid artery Occlusion and stenosis of carotid artery without mention of cerebral infarction Sinus bradycardia Other specified cardiac dysrhythmias documented in this encounter [facility] [place] [facility]* Diagnosis Anxiety- Primary Anxiety state, unspecified Essential hypertension Unspecified essential hypertension Hyperlipidemia, unspecified hyperlipidemia type Coronary artery disease involving [place] coronary artery of [place] heart without angina pectoris Cerebrovascular accident (CVA), unspecified mechanism (HCC) Chronic insomnia Insomnia, unspecified Right hemiplegia (HCC) Hemiplegia, unspecified, affecting unspecified side Aphasia as late effect of cerebrovascular accident Aphasia, late effect of cerebrovascular disease Chronic obstructive pulmonary disease, unspecified COPD type (HCC) Left flank pain Abdominal pain, unspecified site Cough, unspecified type Elevated serum creatinine Other nonspecific findings on examination of blood Elevated glucose Other abnormal glucose Respiratory failure, unspecified chronicity, unspecified whether with hypoxia or hypercapnia (HCC) Stage 3a chronic kidney disease (HCC) Aneurysm Aneurysm of unspecified site Essential hypertension- Primary Unspecified essential hypertension Anxiety Anxiety state, unspecified Depression, unspecified depression type Hyperlipidemia, unspecified hyperlipidemia type Elevated glucose Other abnormal glucose Cerebrovascular accident (CVA), unspecified mechanism (HCC) Right hemiplegia (HCC) Hemiplegia, unspecified, affecting unspecified side Aphasia as late effect of cerebrovascular accident Aphasia, late effect of cerebrovascular disease Coronary artery disease involving [place] coronary artery of [place] heart without angina pectoris Paroxysmal atrial fibrillation (HCC) Atrial fibrillation Iron deficiency anemia due to chronic blood loss Iron deficiency anemia secondary to blood loss (chronic) Erectile dysfunction, unspecified erectile dysfunction type Chronic obstructive pulmonary disease, unspecified COPD type (HCC) Need for vaccination Need for prophylactic vaccination and inoculation against unspecified single disease Stage 3 chronic kidney disease, unspecified whether stage 3a or 3b CKD (HCC) Pre-op evaluation- Primary Preoperative examination, unspecified 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) Coronary artery disease involving [place] coronary artery of [place] heart without angina pectoris Paroxysmal atrial fibrillation (HCC) Atrial fibrillation Centrilobular emphysema (HCC) Other emphysema Bilateral impacted cerumen- Primary Impacted cerumen documented in this encounter [facility] course Narrative No data available for this section [facility] Reason for referral (narrative)* Diagnostic Procedure Only (Routine) - Pending Review Specialty Diagnoses / Procedures Referred By Jed t Referred To Contact XR IMAGING Diagnoses Aphasia as late effect of cerebrovascular accident Cerebrovascular accident (CVA), unspecified mechanism (HCC) Procedures XR MODIFIED BARIUM SWALLOW W SPEECH THERAPY RADIOLOGIC EXAM SWALLOW FUNCTION CONTRAST STUDY Jaci Arroyo MD [address] [place] [address] Xr Imaging Referral ID Status Reason Start Date Expiration Date Visits Requested Visits Authorized [id number] Pending Review Auto-Generat ed Referral 12/06/2022 01/05/2024 1 1 * Speech Therapy (Routine) - Pending Review Specialty Diagnoses / Procedures Referred By Contac t Referred To Contact [facility] Diagnoses Aphasia as late effect of cerebrovascular accident Cerebrovascular accident (CVA), unspecified mechanism (HCC) Procedures CONSULT TO SPEECH THERAPY OFFICE/OUTPATIENT [facility] 60-74 MINUTES Jaci Arroyo MD [address] [place] [address] [facility] [address] [address] Referral ID Status Reason Start Date Expiration Date Visits Requested Visits Authorized [id number] Pending Review Auto-Generat ed Referral 12/06/2022 12/06/2023 1 1 [facility] for referral (narrative)* Outpatient Procedure (Routine) - Closed Specialty Diagnoses / Procedures Referred By Contac t Referred To Contact [facility] Diagnoses Centrilobular emphysema (HCC) Procedures LUNG DIFFUSION CAPACITY (DLCO) DIFFUSING CAPACITY Kimo Mcgrath MD [address] [place] [address] Respiratory [place] [address] [place] [phone] Referral ID Status Reason Start Date Expiration Date V isits Requested Visits Authorized [id number] Closed Auto-Generate d Referral 03/12/2023 04/10/2024 1 1 [facility] for referral (narrative)* Outpatient Procedure (Routine) - Pending Review Specialty Diagnoses / Procedures Referred By Contac t Referred To Contact [facility] Diagnoses Iron deficiency anemia due to chronic blood loss Procedures COLONOSCOPY DIAGNOSTIC COLONOSCOPY FLX DX W/COLLJ SPEC WHEN PFJorge Orr MD [address] [place] [address] [address] Referral ID Status Reason Start Date Expiration Date Visits Requested Visits Authorized [id number] Pending Review Auto-Generat ed Referral 04/07/2023 04/07/2024 1 1 * Outpatient Procedure (Routine) - Pending Review Specialty Diagnoses / Procedures Referred By Jed tompkins Referred To Contact [facility] Diagnoses Iron deficiency anemia due to chronic blood loss Procedures EGD DIAGNOSTIC ESOPHAGOGASTRODUODENOSC OPY TRANSORAL DIAGNOSTIC Jorge Cardoso MD [address] [place] [address] [place] [phone] Referral ID Status Reason Start Date Expiration Date Visits Requested Visits Authorized [id number] Pending Review Auto-Generat ed Referral 04/07/2023 04/07/2024 1 1 [facility] for referral (narrative)* Outpatient Procedure (Routine) - Closed Specialty Diagnoses / Procedures Referred By Jed tompkins Referred To Contact [facility] Diagnoses Iron deficiency anemia due to chronic blood loss Procedures COLONOSCOPY DIAGNOSTIC COLONOSCOPY FLX DX W/COLLJ SPEC WHEN Jorge Cooper MD [address] [place] [address] [place] [phone] Referral ID Status Reason Start Date Expiration Date V isits Requested Visits Authorized [id number] Closed Auto-Generate d Referral 04/07/2023 04/07/2024 1 1 * Outpatient Procedure (Routine) - Closed Specialty Diagnoses / Procedures Referred By Jed tompkins Referred To Contact [facility] Diagnoses Iron deficiency anemia due to chronic blood loss Procedures EGD DIAGNOSTIC ESOPHAGOGASTRODUODENOSC OPY TRANSORAL DIAGNOSTIC Jorge Cardoso MD [address] [place] [address] [facility] [place] [address] [place] [id number] Referral ID Status Reason Start Date Expiration Date V isits Requested Visits Authorized [id number] Closed Auto-Generate d Referral 04/07/2023 04/07/2024 1 1 [facility] for referral (narrative)* Outpatient Procedure (Routine) - Authorized Specialty Diagnoses / Procedures Referred By Contac t Referred To Contact [facility] [place] Diagnoses Occlusion of left carotid artery Procedures US CAROTID ARTERIES CRISTIANO VAS LAB DUPLEX SCAN EXTRACRANIAL ART COMPL BI STUDY Deanne Cruz DO [address] [place] [address] [place] [phone] Referral ID Status Reason Start Date Expiration Date Visits Requested Visits Authorized [id number] Authorized Auto-Generat ed Referral 3 06/17/2024 1 1 [facility] for referral (narrative)* Diagnostic Procedure Only (Routine) - Authorized Specialty Diagnoses / Procedures [facility] Diagnoses Pre-op evaluation Procedures US CAROTID BILATERAL Raine Valdivia MD [address] [place] [address] Us Imaging [id number] Referral ID Status Reason Start Date Expiration Date Visits Requested Visits Authorized [id number] Authorized Auto-Generat ed Referral 3 08/13/2024 1 1 [facility] for referral (narrative)* Outpatient Procedure (Routine) - Authorized Specialty Diagnoses / Procedures [facility] Diagnoses Subclavian artery stenosis, left (HCC) Procedures US ARM ARTERIAL UNL VAS LAB DUP-SCAN UXTR ART/ARTL BPGS UNI/LMTD STUDY Deanne Cruz DO [address] [place] [address] [address] Referral ID Status Reason Start Date Expiration Date Visits Requested Visits Authorized [id number] Authorized Auto-Generat ed Referral 10/01/2023 09/30/2024 1 1 * Outpatient Procedure (Routine) - Authorized Specialty Diagnoses / Procedures Referred By Contac t Referred To Contact [facility] Diagnoses Occlusion of left carotid artery Procedures US CAROTID ARTERIES CRISTIANO VAS LAB DUPLEX SCAN EXTRACRANIAL ART COMPL BI STUDY Deanne Cruz DO [address] [place] [address] [address] Referral ID Status Reason Start Date Expiration Date Visits Requested Visits Authorized [id number] Authorized Auto-Generat ed Referral 10/01/2023 09/30/2024 1 1 [facility] for referral (narrative)* Outpatient Procedure (Routine) - Authorized Specialty Diagnoses / Procedures Referred By Contac t Referred To Contact [facility] Diagnoses History of colonic polyps Procedures COLONOSCOPY SCREENING COLONOSCOPY FLX DX W/COLLJ SPEC WHEN Lacy Slade MD [address] [place] [address] [facility] [place] [address] [place] [address] Referral ID Status Reason Start Date Expiration Date Visits Requested Visits Authorized [id number] Authorized Auto-Generat ed Referral 02/24/2024 02/23/2025 1 1 [facility] for referral (narrative)* Outpatient Procedure (Routine) - Authorized Specialty Diagnoses / Procedures Referred By Contac t Referred To Contact [facility] Diagnoses History of stroke Altered mental status, unspecified altered mental status type Procedures EPIL EEG ROUTINE ELECTROENCEPHALOGRAM REC COMA/SLEEP ONLY Dania Aj Jr., MD [address] [facility] [address] [place] [address] [place] [address]Albert Tyler [place] [phone] Referral ID Status Reason Start Date Expiration Date Visits Requested Visits Authorized [id number] Authorized Auto-Generat ed Referral 03/09/2024 03/09/2025 1 1 * MRI/CT (Routine) - Pending Review Specialty Diagnoses / Procedures Referred By Contac t Referred To Contact MR IMAGING Diagnoses History of stroke Left carotid artery occlusion Stenosis of left subclavian artery (HCC) History of obstructive sleep apnea History of atrial fibrillation History of coronary artery bypass, five 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 Spasticity Other symptoms and signs involving the nervous system 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) Occlusion and stenosis of unspecified carotid artery Procedures MRA CAROTID WO IVCON MRA, NECK; W/O CONTRAST Dania Aj Jr., MD [address] [facility] [address] [place] [address] [place] [id number] Referral ID Status Reason Start Date Expiration Date Visits Requested Visits Authorized [id number] Pending Review Auto-Generat ed Referral 03/09/2024 04/08/2025 1 1 * MRI/CT (Routine) - Pending Review Specialty Diagnoses / Procedures Referred By Contac t Referred To Contact MR IMAGING Diagnoses History of stroke Left carotid artery occlusion Stenosis of left subclavian artery (HCC) History of obstructive sleep apnea History of atrial fibrillation History of coronary artery bypass, five 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 Spasticity Other symptoms and signs involving the nervous system 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) Occlusion and stenosis of unspecified carotid artery Procedures MRA BRAIN WO IVCON MRA, HEAD W/O CONTRAST Dania Aj Jr., MD [address] [facility] [address] [place] [address] [place] [address] Referral ID Status Reason Start Date Expiration Date Visits Requested Visits Authorized [id number] Pending Review Auto-Generat ed Referral 03/09/2024 04/08/2025 1 1 * MRI/CT (Routine) - Pending Review Specialty Diagnoses / Procedures Referred By Jed t Referred To Contact MR IMAGING Diagnoses History of stroke Left carotid artery occlusion Stenosis of left subclavian artery (HCC) History of obstructive sleep apnea History of atrial fibrillation History of coronary artery bypass, five 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 Spasticity Other symptoms and signs involving the nervous system 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) Occlusion and stenosis of unspecified carotid artery Procedures MRI BRAIN WO IVCON MRI BRAIN BRAIN STEM W/O CONTRAST MATERIAL Dania Aj Jr., MD [address] [place] [address] [place] [address] Referral ID Status Reason Start Date Expiration Date Visits Requested Visits Authorized [id number] Pending Review Auto-Generat ed Referral 03/09/2024 04/08/2025 1 1 * Consult, Test, Treat (Routine) - Authorized Specialty Diagnoses / Procedures Referred By Jed tompkins Referred To Contact [facility] Diagnoses History of stroke Left carotid artery occlusion Stenosis of left subclavian artery (HCC) History of obstructive sleep apnea History of atrial fibrillation History of coronary artery bypass, five 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 Spasticity Procedures CONSULT TO PHYSICAL MEDICINE AND REHABILITATION OFFICE/OUTPATIENT [facility] 60 MINUTES Dania Aj Jr., MD [address] [place] [address] [facility] [place] [address] [place] [address] Referral ID Status Reason Start Date Expiration Date Visits Requested Visits Authorized [id number] Authorized PCP Requested Referral Auto-Generate d Referral 03/09/2024 03/09/2025 1 1 [facility] for referral (narrative)* Diagnostic Procedure Only (Routine) - New Request Specialty Diagnoses / Procedures Referred By Contac t Referred To Contact XR IMAGING Diagnoses Acute pain of left knee Procedures XR KNEE GENERAL 4V AP BOTH/PA BOTH/LAT/MERC LEFT RADIOLOGIC EXAM KNEE COMPLETE 4/MORE VIEWS Jessie Harmon APRN.OPERATIONS LABEL CLERK [address] [place] [address] Xr Imaging [place] [address] Referral ID Status Reason Start Date Expiration Date Visits Requested Visits Authorized [id number] New Request Auto-Generat ed Referral 07/13/2024 08/12/2025 1 1 * Consult, Test, Treat (Routine) - Authorized Specialty Diagnoses / Procedures Referred By Contac t Referred To Contact Neurology Diagnoses Seizure disorder (HCC) Procedures CONSULT TO NEUROLOGY OFFICE/OUTPATIENT NEW HIGH MDM 60 MINUTES Jessie Harmon APRN.OPERATIONS LABEL CLERK [address] [place] [address] Referral ID Status Reason Start Date Expiration Date Visits Requested Visits Authorized [id number] Authorized PCP Requested Referral 07/13/2024 07/13/2025 1 1 [facility] for referral (narrative)* Outpatient Procedure (Routine) - New Request Specialty Diagnoses / Procedures Referred By Contac t Referred To Contact [facility] Diagnoses Seizure (HCC) Procedures EPIL EEG LONG EEG EXTENDED MONITORING 61-119 MINUTES ELECTROENCEPHALOGRAM REC COMA/SLEEP ONLY Yessi Valdez MD [address] [id number] Neurological [place] [facility] [place] [address] Referral ID Status Reason Start Date Expiration Date Visits Requested Visits Authorized [id number] New Request Auto-Generat ed Referral 09/03/2024 09/03/2025 1 1 [facility] for visit Narrative* Outpatient Procedure (Routine) - Closed Specialty Diagnoses / Procedures Referred By Jed tompkins Referred To Contact [facility] Diagnoses Iron deficiency anemia due to chronic blood loss Procedures COLONOSCOPY DIAGNOSTIC COLONOSCOPY FLX DX W/COLLJ SPEC WHEN Jorge Cooper MD [address] [facility] [place] [address] [facility]ive [facility] [place] [address] [place] [address] Referral ID Status Reason Start Date Expiration Date V isits Requested Visits Authorized [id number] Closed Auto-Generate d Referral 04/07/2023 04/07/2024 1 1 [facility] Summary Purpose Family History No Family History Records Found Relationship Condition Age at Onset Recorded Date/T padmini mother Diabetes mellitus Unknown Cardiac disease Unknown father Abdominal aortic aneurysm (AAA) Unknown Advance Directives No Advanced Directives Records FoundDocuments on File Type Date Recorded 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 Advance Directive(s) 12/03/2017 8:51 AM Advance Directive Response Recorded Date/ Time Advance Directives No June 2:01am Living Will Yes August 17 2:06am Power of Interior Design Professional Yes August 17, 2021 2:06am Documents on File Type Date Recorded 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 Advance Directive(s) 01/29/2022 10:58 AM Advance Directive(s) 12/03/2017 8:51 AM Documents on File Type Date Recorded 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 Advance Directive(s) 01/29/2022 10:58 AM Documents on File Type Date Recorded 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 Advance Directive(s) 01/29/2022 10:58 AM Advance Directive Response Recorded Date/ Time Advance Directives No June 1:01am Living Will Yes August 17 1:06am Power of Interior Design Professional Yes August 17, 2021 1:06am Advance Directive Response Recorded Date/ Time Name of Medical Power of Interior Design Professional August 16, 2022 10:14am Advance Directives No June 1:01am Living Will Yes August 16 10:14am Power of Interior Design Professional Yes August 16, 2022 10:14am Advance Directive Response Recorded Date/ Time Name of Medical Power of Interior Design Professional Eli Zee August 16, 2022 1:20pm Advance Directives No June 1:01am Living Will Yes August 16 1:20pm Power of Interior Design Professional Yes August 16, 2022 1:20pm Advance Directive Response Recorded Date/ Time Name of Medical Power of Interior Design Professional Eli Zee August 16, 2022 2:20pm Advance Directives No June 2:01am Living Will No November 11, 2022 1:18pm Power of Interior Design Professional No November 11 1:18pm Advance Directive Response Recorded Date/ Time Name of Medical Power of Interior Design Professional Eli Zee August 16, 2022 2:20pm Advance Directives No June 2:01am Living Will No November 11, 2022 3:46pm Power of Interior Design Professional No November 11 3 3:46pm Advance Directive Response Recorded Date/ Time Advance Directives No June 2:01am Living Will No November 11, 2022 3:46pm Power of Interior Design Professional No November 11 3 3:46pm Advance Directive Response Recorded Date/ Time Name of Medical Power of Interior Design Professional Eli Zee August 07, 2023 2:17pm Advance Directives No June 1:01am Living Will Yes August 07 2:17pm Power of Interior Design Professional Yes August 07, 024 2:17pm Chief Complaint and Reason for Visit Chief Complaint TIA TIA (cardiology) TIA (cardiology) TIA (cardiology) TIA (cardiology) TIA (cardiology) TIA (cardiology) TIA (cardiology) PENITENTIARY BLOOD WORK G47.30- UNSPECIFIED SLEEP APNEA; CONF 09/19&LM 09/25 3 M FU MASS MASS Reason for Visit Gait disturbance Dehydration Mass of upper lobe of right lung Mixed obstructive and restrictive ventilatory defect Chief Complaint LUNG MASS FOLLOW UP Chief Complaint LUNG MASS FOLLOW UP 6 M FU Acute respiratory failure with hypoxia Acute respiratory failure with hypoxia Reason for Visit Mixed obstructive an d restrictive ventilatory defect Nicotine dependence, cigarettes, in remission Chief Complaint LUNG MASS FOLLOW UP 6 M FU Acute respiratory failure with hypoxia Acute respiratory failure with hypoxia COPD EXACERBATION Reason for Visit Mixed obstructive an d restrictive ventilatory defect Nicotine dependence, cigarettes, in remission Chief Complaint LUNG MASS FOLLOW UP 6 M FU Acute respiratory failure with hypoxia Acute respiratory failure with hypoxia COPD EXACERBATION COPD EXACERBATION Reason for Visit Mixed obstructive an d restrictive ventilatory defect Nicotine dependence, cigarettes, in remission Hypoxia Chief Complaint COPD EXACERBATION COPD EXACERBATION COPD EXACERBATION Hospital FU ADMISSION EXAM ADMISSION EXAM PNEUMONIA Reason for Visit Hypoxia Pneumonia Aphasia Community acquired pneumonia History of stroke Hypoxia Chief Complaint COPD EXACERBATION COPD EXACERBATION COPD EXACERBATION Hospital FU ADMISSION EXAM ADMISSION EXAM PNEUMONIA Pneumonia RHYTHM CHANGE Pneumonia Pneumonia Pneumonia Reason for Visit Hypoxia Pneumonia Aphasia Community acquired pneumonia History of stroke Hypoxia Chief Complaint APHASIA/CVA/HEMIPLEG IA. RX HERE ADMISSION EXAM LAB WORK PENITENTIARY LAB WORK ADMISSION EXAM LAB WORK Chief Complaint APHASIA/CVA/HEMIPLEG IA. 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, cigarettes, in remission Bimalleolar fracture of right ankle Ankle fracture Bimalleolar fracture of right ankle Constipation Dysuria History of stroke Atherosclerosis of coronary artery without angina pectoris Carotid artery disease HTN (hypertension) Chief Complaint RIGHT FIBULA PREOP Right ankle open reduction internal Right ankle open reduction internal Right ankle open reduction internal Right ankle open reduction internal Right ankle open reduction internal Right ankle open reduction internal PENITENTIARY LABWORK ADMISSION EXAM- FOIL WRAPPER ADMISSION EXAM - MD PENITENTIARY LABWORK ankle pain LABWORK LAB WORK PENITENTIARY LAB WORK RIGHT ANKLE room 2 Reason for Visit Bimalleolar fracture of right ankle Ankle fracture Bimalleolar fracture of right ankle Constipation Dysuria History of stroke Atherosclerosis of coronary artery without angina pectoris Carotid artery disease HTN (hypertension) Bimalleolar fracture of right ankle Bimalleolar fracture of right ankle Reason for Referral Specialty Diagnoses / Procedures Referred By Jed tompkins Referred To Contact Diagnoses Foot drop, right Procedures CONSULT TO ORTHOTIC/PROSTHETIC Sabiha Stevens MD [address] [address] Referral ID Status Reason Start Date Expiration Date V isits Requested Visits Authorized [id number] Ref Not Required 04/19/2022 06/18/2022 1 1 Specialty Diagnoses / Procedures Referred By Jed tompkins Referred To Contact [facility] Diagnoses Cerebrovascular accident (CVA), unspecified mechanism (HCC) Dysphasia Procedures CONSULT TO SPEECH THERAPY OFFICE/OUTPATIENT [facility] 60-74 MINUTES Jaci Arroyo MD [address] [place] [address] [facility] [place] [address] [place] [address] Referral ID Status Reason Start Date Expiration Date Visits Requested Visits Authorized [id number] Pending Review Auto-Generat ed Referral 05/03/2022 05/03/2023 1 1 Specialty Diagnoses / Procedures Referred By Contac t Referred To Contact Diagnoses Anxiety Jaci Arroyo MD [address] [place] [address] Referral ID Status Reason Start Date Expiration Date V isits Requested Visits Authorized [id number] Authorized 1 1 Specialty Diagnoses / Procedures Referred By Contac t Referred To Contact Urology Diagnoses Balanitis Procedures CONSULT TO UROLOGY OFFICE/OUTPATIENT [facility] 60-74 MINUTES Jaci Arroyo MD [address] [place] [address] Referral ID Status Reason Start Date Expiration Date Visits Requested Visits Authorized [id number] Authorized PCP Requested Referral 08/16/2022 08/16/2023 1 1 Specialty Diagnoses / Procedures Referred By Contac t Referred To Contact Neurology Diagnoses Occlusion of left carotid artery Procedures CONSULT TO NEUROLOGY Robin Johansen MD [address] [place] [address] [address] Referral ID Status Reason Start Date Expiration Date Visits Requested Visits Authorized [id number] Ref Not Required PCP Requested Referral 09/03/2022 09/03/2023 1 1 Specialty Diagnoses / Procedures Referred By Contac t Referred To Contact Pulmonary and Critical Care Medicine Diagnoses Shortness of breath COPD with exacerbation (HCC) Procedures CONSULT TO PULM/CRITICAL CARE OFFICE/OUTPATIENT [facility] 60-74 MINUTES Jaci Arroyo MD [address] [place] [address] Referral ID Status Reason Start Date Expiration Date Visits Requested Visits Authorized [id number] Authorized PCP Requested Referral 11/17/2022 11/17/2023 1 1 Specialty Diagnoses / Procedures Referred By Jed t Referred To Contact [facility] Diagnoses Right hemiplegia (HCC) Cerebrovascular accident (CVA), unspecified mechanism (HCC) Aphasia as late effect of cerebrovascular accident Procedures CONSULT TO SPEECH THERAPY OFFICE/OUTPATIENT NEW HIGH MDM 60-74 MINUTES Jaci Arroyo MD [address] [place] [address] [facility] [place] [address] [place] [address] Referral ID Status Reason Start Date Expiration Date Visits Requested Visits Authorized [id number] Pending Review Auto-Generat ed Referral 12/10/2022 12/05/2023 1 1 Specialty Diagnoses / Procedures Referred By Jed t Referred To Contact [facility] Diagnoses Right hemiplegia (HCC) Cerebrovascular accident (CVA), unspecified mechanism (HCC) Procedures CONSULT TO STITCH BONDING MACHINE DRAWER IN OCCUPATIONAL THERAPY EVAL HIGH COMPLEX 60 MINS Jaci Arroyo MD [address] [place] [address] [facility] [address] [place] [address] Referral ID Status Reason Start Date Expiration Date Visits Requested Visits Authorized [id number] Pending Review Auto-Generat ed Referral 12/10/2022 12/05/2023 1 1 Specialty Diagnoses / Procedures Referred By Jed t Referred To Contact [facility] Diagnoses Right hemiplegia (HCC) Cerebrovascular accident (CVA), unspecified mechanism (HCC) Procedures CONSULT TO PHYSICAL THERAPY PHYSICAL THERAPY EVALUATION HIGH COMPLEX 45 MINS Jaci Arroyo MD [address] [place] [address] [facility] [address] [place] [address] Referral ID Status Reason Start Date Expiration Date Visits Requested Visits Authorized [id number] Pending Review Auto-Generat ed Referral 12/10/2022 12/05/2023 1 1 Specialty Diagnoses / Procedures Referred By Contac t Referred To Contact [facility] Diagnoses Cerebrovascular accident (CVA), unspecified mechanism (HCC) Procedures CONSULT TO PHYSICAL MEDICINE AND REHABILITATION OFFICE/OUTPATIENT [facility] 60-74 MINUTES Jaci Arroyo MD [address] [place] [address] [facility] [place] [address] [place] [phone] Referral ID Status Reason Start Date Expiration Date Visits Requested Visits Authorized [id number] Authorized PCP Requested Referral Auto-Generate d Referral 02/14/2023 02/14/2024 1 1 Specialty Diagnoses / Procedures Referred By Contac t Referred To Contact General Surgery Diagnoses Iron deficiency anemia due to chronic blood loss Procedures CONSULT TO GENERAL SURGERY OFFICE/OUTPATIENT [facility] 60-74 MINUTES Jaci Arroyo MD [address] [place] [address] Referral ID Status Reason Start Date Expiration Date Visits Requested Visits Authorized [id number] Authorized PCP Requested Referral 03/28/2023 03/27/2024 1 1 Specialty Diagnoses / Procedures Referred By Contac t Referred To Contact CT IMAGING Diagnoses Iron deficiency anemia due to chronic blood loss Procedures CT ABD/PEL W IVCON CT ABD & PELVIS W/CONTRAST Jorge Cardoso MD [address] [place] [address] Ct Imaging [place] [address] Referral ID Status Reason Start Date Expiration Date Visits Requested Visits Authorized [id number] Pending Review Auto-Generat ed Referral 3 06/19/2024 1 1 Referral ID Status Reason Start Date Expiration Date V isits Requested Visits Authorized [id number] Closed Auto-Generat ed Referral Patient Cleared - Admin/Chairm an/Director advise to proceed or did not respond 05/31/2023 07/30/2023 2 2 Specialty Diagnoses / Procedures Referred By Contac t Referred To Contact Diagnoses Rectal mass Procedures REFER TO PACC - PRE ANESTHESIA CONSULTATION CLINIC OFFICE/OUTPATIENT [facility] 60-74 MINUTES Nacho Sandoval MD [address] [place] [address] Referral ID Status Reason Start Date Expiration Date Visits Requested Visits Authorized [id number] Authorized PCP Requested Referral 3 06/19/2024 1 1 Specialty Diagnoses / Procedures Referred By Contac t Referred To Contact [facility] Diagnoses Rectal mass Procedures ECG COMPLETE ECG ROUTINE ECG W/LEAST 12 LDS W/I&R Nacho Sandoval MD [address] [place] [address] Heart And [facility] [place] [facility] [address] Referral ID Status Reason Start Date Expiration Date Visits Requested Visits Authorized [id number] Pending Review Auto-Generat ed Referral 3 06/19/2024 1 1 Specialty Diagnoses / Procedures Referred By Contac t Referred To Contact Diagnoses Rectal mass Procedures CONSULT TO [facility] OFFICE/OUTPATIENT [facility] 60-74 MINUTES Nacho Sandoval MD [address] [place] [address] Referral ID Status Reason Start Date Expiration Date Visits Requested Visits Authorized [id number] Authorized PCP Requested Referral 3 06/19/2024 1 1 Specialty Diagnoses / Procedures Referred By Contac t Referred To Contact Vascular Medicine Diagnoses Cerebrovascular accident (CVA), unspecified mechanism (HCC) Procedures CONSULT TO VASCULAR MEDICINE OFFICE/OUTPATIENT [facility] 60-74 MINUTES Nacho Sandoval MD [address] [place] [address] Referral ID Status Reason Start Date Expiration Date Visits Requested Visits Authorized [id number] Authorized PCP Requested Referral 3 06/20/2024 1 1 Specialty Diagnoses / Procedures Referred By Contac t Referred To Contact Cardiology Diagnoses Paroxysmal atrial fibrillation (HCC) Preoperative examination Procedures CONSULT TO CARDIOLOGY OFFICE/OUTPATIENT [facility] 60-74 MINUTES Nacho Sandoval MD [address] [place] [address] Referral ID Status Reason Start Date Expiration Date Visits Requested Visits Authorized [id number] Authorized PCP Requested Referral 3 06/23/2024 1 1 Specialty Diagnoses / Procedures Referred By Contac t Referred To Contact Diagnoses DARON (obstructive sleep apnea) Procedures CONSULT TO SLEEP MEDICINE - ADULT OFFICE/OUTPATIENT [facility] 60 MINUTES Dania Aj Jr., MD [address] [place] [address] Referral ID Status Reason Start Date Expiration Date Visits Requested Visits Authorized [id number] Authorized PCP Requested Referral 09/20/2023 09/19/2024 1 1 Specialty Diagnoses / Procedures Referred By Contac t Referred To Contact [facility] Diagnoses 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) Right hemiplegia (HCC) Dysphasia Aphasia as late effect of cerebrovascular accident Cerebrovascular accident (CVA), unspecified mechanism (HCC) Procedures CONSULT TO STITCH BONDING MACHINE DRAWER IN OCCUPATIONAL THERAPY EVAL HIGH [facility] 60 MINS Jaci Arroyo MD [address] [place] [address] [facility] [place] [address] [place] [address] Referral ID Status Reason Start Date Expiration Date Visits Requested Visits Authorized [id number] Pending Review Auto-Generat ed Referral 11/04/2023 11/03/2024 1 1 Specialty Diagnoses / Procedures Referred By Contac t Referred To Contact [facility] Diagnoses 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) Right hemiplegia (HCC) Dysphasia Aphasia as late effect of cerebrovascular accident Cerebrovascular accident (CVA), unspecified mechanism (HCC) Procedures CONSULT TO SPEECH THERAPY OFFICE/OUTPATIENT [facility] 60 MINUTES Jaci Arroyo MD [address] [place] [address] [facility] [place] [address] [place] [address] Referral ID Status Reason Start Date Expiration Date Visits Requested Visits Authorized [id number] Pending Review Auto-Generat ed Referral 11/04/2023 11/03/2024 1 1 Specialty Diagnoses / Procedures Referred By Contac t Referred To Contact Neurosurgery Diagnoses Cerebral aneurysm Procedures CONSULT TO NEUROSURGERY OFFICE/OUTPATIENT [facility] 60 MINUTES Dania Aj Jr., MD [address] [facility] [address] [place] [address] Referral ID Status Reason Start Date Expiration Date Visits Requested Visits Authorized [id number] Authorized PCP Requested Referral 05/08/2024 08/06/2024 1 1 Specialty Diagnoses / Procedures [facility] To Contact MR IMAGING Diagnoses History of stroke Left carotid artery occlusion Stenosis of left subclavian artery (HCC) History of obstructive sleep apnea History of atrial fibrillation History of coronary artery bypass, five 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 Spasticity Other symptoms and signs involving the nervous system 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) Occlusion and stenosis of unspecified carotid artery Procedures MRA CAROTID WO IVCON MRA, NECK; W/O CONTRAST Dania Aj Jr., MD [address] [facility] [address] [place] [address] Mr Imaging [facility] Referral ID Status Reason Start Date Expiration Date V isits Requested Visits Authorized [id number] Closed Auto-Generate d Referral 03/25/2024 05/24/2024 1 1 Specialty Diagnoses / Procedures [facility] Referred To Contact MR IMAGING Diagnoses History of stroke Left carotid artery occlusion Stenosis of left subclavian artery (HCC) History of obstructive sleep apnea History of atrial fibrillation History of coronary artery bypass, five 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 Spasticity Other symptoms and signs involving the nervous system 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) Occlusion and stenosis of unspecified carotid artery Procedures MRA BRAIN WO IVCON MRA, HEAD W/O CONTRAST Dania Aj Jr., MD [address] [facility] [address] [place] [address] [place] [address] Referral ID Status Reason Start Date Expiration Date V isits Requested Visits Authorized [id number] Closed Auto-Generate d Referral 03/25/2024 05/24/2024 1 1 Specialty Diagnoses / Procedures [facility] Referred To Contact MR IMAGING Diagnoses History of stroke Left carotid artery occlusion Stenosis of left subclavian artery (HCC) History of obstructive sleep apnea History of atrial fibrillation History of coronary artery bypass, five 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 Spasticity Other symptoms and signs involving the nervous system 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) Occlusion and stenosis of unspecified carotid artery Procedures MRI BRAIN WO IVCON MRI BRAIN BRAIN STEM W/O CONTRAST MATERIAL Dania Aj Jr., MD [address] [facility] [address] [place] [address] Mr Imaging [facility] Referral ID Status Reason Start Date Expiration Date V isits Requested Visits Authorized [id number] Closed Auto-Generate d Referral 03/25/2024 05/24/2024 1 1 Specialty Diagnoses / Procedures Referred By Contac t Referred To Contact [facility] Diagnoses History of stroke Spasticity Procedures CONSULT TO PHYSICAL MEDICINE AND REHABILITATION OFFICE/OUTPATIENT [facility] 60 MINUTES Michelle Webb PA-C [address] [place] [address] [facility] [place] [address] Referral ID Status Reason Start Date Expiration Date Visits Requested Visits Authorized [id number] Authorized PCP Requested Referral Auto-Generate d Referral 4 05/20/2025 1 1 Specialty Diagnoses / Procedures Referred By Contac t Referred To Contact Diagnoses Anxiety Chronic insomnia Jaci Arroyo MD [address] [place] [address] Referral ID Status Reason Start Date Expiration Date V isits Requested Visits Authorized [id number] Authorized 03/04/2024 04/03/2025 1 1 Specialty Diagnoses / Procedures Referred By Contac t Referred To Contact CT IMAGING Diagnoses Cerebral aneurysm without rupture Procedures CTA NECK W IVCON CT ANGIOGRAPHY NECK W/CONTRAST/NONCONTRAST Gloria Sawyer MD [address] [place] [address] Ct Imaging [facility] Referral ID Status Reason Start Date Expiration Date Visits Requested Visits Authorized [id number] New Request Auto-Generat ed Referral 4 07/01/2025 1 1 Specialty Diagnoses / Procedures Referred By Contac t Referred To Contact CT IMAGING Diagnoses Cerebral aneurysm without rupture Procedures CTA HEAD W IVCON CT ANGIOGRAPHY HEAD W/CONTRAST/NONCONTRAST Gloria Sawyer MD [address] [place] [address] [place] [address] Referral ID Status Reason Start Date Expiration Date Visits Requested Visits Authorized [id number] New Request Auto-Generat ed Referral 4 07/01/2025 1 1 Specialty Diagnoses / Procedures Referred By Contac t Referred To Contact Neurology Diagnoses Altered mental status, unspecified altered mental status type Nonspecific abnormal electroencephalogram (EEG) Procedures CONSULT TO NEUROLOGY OFFICE/OUTPATIENT NEW HIGH MDM 60 MINUTES Michelle Webb PA-C [address] [place] [address] Referral ID Status Reason Start Date Expiration Date Visits Requested Visits Authorized [id number] Authorized PCP Requested Referral 4 07/22/2025 1 1 Additional Source Comments (unrecognized sect ion and content) No Status Records FoundNo Status Records FoundNo Status Records FoundNo Status Records FoundNo Status Records FoundNo Status Records FoundNo Status Records Found INFORMATION SOURCE (unrecogn ized section and content) DATE CREATED AUTHOR 11/12/2018 [facility] DATE CREATED AUTHOR AUTHOR'S ORGANIZ ATION 04/20/2023 [facility] DATE CREATED AUTHOR AUTHOR'S ORGANIZ ATION 08/03/2023 [facility] ([place]) DATE CREATED AUTHOR AUTHOR'S ORGANIZ ATION 07/08/2024 [facility] DATE CREATED AUTHOR AUTHOR'S ORGANIZ ATION 08/24/2024 [facility] DATE CREATED AUTHOR AUTHOR'S ORGANIZ ATION 10/30/2024 [facility] DATE CREATED AUTHOR AUTHOR'S ORGANIZ ATION 03/14/2025 [facility] Comments (unrecognize d section and content) In the event this informatio n is protected by the Federal Confidentiality of Alcohol and Drug Abuse Patient Records regulations: The Federal rules restrict any use of the information to criminally investigate or prosecute any alcohol or drug abuse patient.[facility] the event this information is protected by the Federal Confidentiality of Alcohol and Drug Abuse Patient Records regulations: The Federal rules restrict any use of the information to criminally investigate or prosecute any alcohol or drug abuse patient.[facility] HospitalIn the event this information is protected by the Federal Confidentiality of Alcohol and Drug Abuse Patient Records regulations: The Federal rules restrict any use of the information to criminally investigate or prosecute any alcohol or drug abuse patient.[facility] HospitalIn the event this information is protected by the Federal Confidentiality of Alcohol and Drug Abuse Patient Records regulations: The Federal rules restrict any use of the information to criminally investigate or prosecute any alcohol or drug abuse patient.[facility] HospitalIn the event this information is protected by the Federal Confidentiality of Alcohol and Drug Abuse Patient Records regulations: The Federal rules restrict any use of the information to criminally investigate or prosecute any alcohol or drug abuse patient.[facility] HospitalIn the event this information is protected by the Federal Confidentiality of Alcohol and Drug Abuse Patient Records regulations: The Federal rules restrict any use of the information to criminally investigate or prosecute any alcohol or drug abuse patient.[facility] HospitalIn the event this information is protected by the Federal Confidentiality of Alcohol and Drug Abuse Patient Records regulations: The Federal rules restrict any use of the information to criminally investigate or prosecute any alcohol or drug abuse patient.[facility] HospitalIn the event this information is protected by the Federal Confidentiality of Alcohol and Drug Abuse Patient Records regulations: The Federal rules restrict any use of the information to criminally investigate or prosecute any alcohol or drug abuse patient.[facility] HospitalIn the event this information is protected by the Federal Confidentiality of Alcohol and Drug Abuse Patient Records regulations: The Federal rules restrict any use of the information to criminally investigate or prosecute any alcohol or drug abuse patient.[facility] HospitalIn the event this information is protected by the Federal Confidentiality of Alcohol and Drug Abuse Patient Records regulations: The Federal rules restrict any use of the information to criminally investigate or prosecute any alcohol or drug abuse patient.[facility] HospitalIn the event this information is protected by the Federal Confidentiality of Alcohol and Drug Abuse Patient Records regulations: The Federal rules restrict any use of the information to criminally investigate or prosecute any alcohol or drug abuse patient.[facility] HospitalIn the event this information is protected by the Federal Confidentiality of Alcohol and Drug Abuse Patient Records regulations: The Federal rules restrict any use of the information to criminally investigate or prosecute any alcohol or drug abuse patient.[facility] HospitalIn the event this information is protected by the Federal Confidentiality of Alcohol and Drug Abuse Patient Records regulations: The Federal rules restrict any use of the information to criminally investigate or prosecute any alcohol or drug abuse patient.[facility] HospitalIn the event this information is protected by the Federal Confidentiality of Alcohol and Drug Abuse Patient Records regulations: The Federal rules restrict any use of the information to criminally investigate or prosecute any alcohol or drug abuse patient.[facility] HospitalIn the event this information is protected by the Federal Confidentiality of Alcohol and Drug Abuse Patient Records regulations: The Federal rules restrict any use of the information to criminally investigate or prosecute any alcohol or drug abuse patient.[facility] HospitalIn the event this information is protected by the Federal Confidentiality of Alcohol and Drug Abuse Patient Records regulations: The Federal rules restrict any use of the information to criminally investigate or prosecute any alcohol or drug abuse patient.[facility]In the event this information is protected by the Federal Confidentiality of Alcohol and Drug Abuse Patient Records regulations: The Federal rules restrict any use of the information to criminally investigate or prosecute any alcohol or drug abuse patient.[facility] HospitalIn the event this information is protected by the Federal Confidentiality of Alcohol and Drug Abuse Patient Records regulations: The Federal rules restrict any use of the information to criminally investigate or prosecute any alcohol or drug abuse patient.[facility] HospitalIn the event this information is protected by the Federal Confidentiality of Alcohol and Drug Abuse Patient Records regulations: The Federal rules restrict any use of the information to criminally investigate or prosecute any alcohol or drug abuse patient.[facility] HospitalIn the event this information is protected by the Federal Confidentiality of Alcohol and Drug Abuse Patient Records regulations: The Federal rules restrict any use of the information to criminally investigate or prosecute any alcohol or drug abuse patient.[facility] HospitalIn the event this information is protected by the Federal Confidentiality of Alcohol and Drug Abuse Patient Records regulations: The Federal rules restrict any use of the information to criminally investigate or prosecute any alcohol or drug abuse patient.[facility] HospitalIn the event this information is protected by the Federal Confidentiality of Alcohol and Drug Abuse Patient Records regulations: The Federal rules restrict any use of the information to criminally investigate or prosecute any alcohol or drug abuse patient.[facility] HospitalIn the event this information is protected by the Federal Confidentiality of Alcohol and Drug Abuse Patient Records regulations: The Federal rules restrict any use of the information to criminally investigate or prosecute any alcohol or drug abuse patient.[facility] HospitalIn the event this information is protected by the Federal Confidentiality of Alcohol and Drug Abuse Patient Records regulations: The Federal rules restrict any use of the information to criminally investigate or prosecute any alcohol or drug abuse patient.[facility] HospitalIn the event this information is protected by the Federal Confidentiality of Alcohol and Drug Abuse Patient Records regulations: The Federal rules restrict any use of the information to criminally investigate or prosecute any alcohol or drug abuse patient.[facility] HospitalIn the event this information is protected by the Federal Confidentiality of Alcohol and Drug Abuse Patient Records regulations: The Federal rules restrict any use of the information to criminally investigate or prosecute any alcohol or drug abuse patient.[facility] HospitalIn the event this information is protected by the Federal Confidentiality of Alcohol and Drug Abuse Patient Records regulations: The Federal rules restrict any use of the information to criminally investigate or prosecute any alcohol or drug abuse patient.[facility] HospitalIn the event this information is protected by the Federal Confidentiality of Alcohol and Drug Abuse Patient Records regulations: The Federal rules restrict any use of the information to criminally investigate or prosecute any alcohol or drug abuse patient.[facility] HospitalIn the event this information is protected by the Federal Confidentiality of Alcohol and Drug Abuse Patient Records regulations: The Federal rules restrict any use of the information to criminally investigate or prosecute any alcohol or drug abuse patient.[facility] HospitalIn the event this information is protected by the Federal Confidentiality of Alcohol and Drug Abuse Patient Records regulations: The Federal rules restrict any use of the information to criminally investigate or prosecute any alcohol or drug abuse patient.[facility] HospitalIn the event this information is protected by the Federal Confidentiality of Alcohol and Drug Abuse Patient Records regulations: The Federal rules restrict any use of the information to criminally investigate or prosecute any alcohol or drug abuse patient.[facility] HospitalIn the event this information is protected by the Federal Confidentiality of Alcohol and Drug Abuse Patient Records regulations: The Federal rules restrict any use of the information to criminally investigate or prosecute any alcohol or drug abuse patient.[facility] HospitalIn the event this information is protected by the Federal Confidentiality of Alcohol and Drug Abuse Patient Records regulations: The Federal rules restrict any use of the information to criminally investigate or prosecute any alcohol or drug abuse patient.[facility] HospitalIn the event this information is protected by the Federal Confidentiality of Alcohol and Drug Abuse Patient Records regulations: The Federal rules restrict any use of the information to criminally investigate or prosecute any alcohol or drug abuse patient.[facility] HospitalIn the event this information is protected by the Federal Confidentiality of Alcohol and Drug Abuse Patient Records regulations: The Federal rules restrict any use of the information to criminally investigate or prosecute any alcohol or drug abuse patient.[facility] HospitalIn the event this information is protected by the Federal Confidentiality of Alcohol and Drug Abuse Patient Records regulations: The Federal rules restrict any use of the information to criminally investigate or prosecute any alcohol or drug abuse patient.[facility] HospitalIn the event this information is protected by the Federal Confidentiality of Alcohol and Drug Abuse Patient Records regulations: The Federal rules restrict any use of the information to criminally investigate or prosecute any alcohol or drug abuse patient.[facility] HospitalIn the event this information is protected by the Federal Confidentiality of Alcohol and Drug Abuse Patient Records regulations: The Federal rules restrict any use of the information to criminally investigate or prosecute any alcohol or drug abuse patient.[facility] HospitalIn the event this information is protected by the Federal Confidentiality of Alcohol and Drug Abuse Patient Records regulations: The Federal rules restrict any use of the information to criminally investigate or prosecute any alcohol or drug abuse patient.[facility] HospitalIn the event this information is protected by the Federal Confidentiality of Alcohol and Drug Abuse Patient Records regulations: The Federal rules restrict any use of the information to criminally investigate or prosecute any alcohol or drug abuse patient.[facility] HospitalIn the event this information is protected by the Federal Confidentiality of Alcohol and Drug Abuse Patient Records regulations: The Federal rules restrict any use of the information to criminally investigate or prosecute any alcohol or drug abuse patient.[facility] HospitalIn the event this information is protected by the Federal Confidentiality of Alcohol and Drug Abuse Patient Records regulations: The Federal rules restrict any use of the information to criminally investigate or prosecute any alcohol or drug abuse patient.[facility] HospitalIn the event this information is protected by the Federal Confidentiality of Alcohol and Drug Abuse Patient Records regulations: The Federal rules restrict any use of the information to criminally investigate or prosecute any alcohol or drug abuse patient.[facility] HospitalIn the event this information is protected by the Federal Confidentiality of Alcohol and Drug Abuse Patient Records regulations: The Federal rules restrict any use of the information to criminally investigate or prosecute any alcohol or drug abuse patient.[facility] HospitalIn the event this information is protected by the Federal Confidentiality of Alcohol and Drug Abuse Patient Records regulations: The Federal rules restrict any use of the information to criminally investigate or prosecute any alcohol or drug abuse patient.[facility] HospitalIn the event this information is protected by the Federal Confidentiality of Alcohol and Drug Abuse Patient Records regulations: The Federal rules restrict any use of the information to criminally investigate or prosecute any alcohol or drug abuse patient.[facility] HospitalIn the event this information is protected by the Federal Confidentiality of Alcohol and Drug Abuse Patient Records regulations: The Federal rules restrict any use of the information to criminally investigate or prosecute any alcohol or drug abuse patient.[facility] HospitalIn the event this information is protected by the Federal Confidentiality of Alcohol and Drug Abuse Patient Records regulations: The Federal rules restrict any use of the information to criminally investigate or prosecute any alcohol or drug abuse patient.[facility] HospitalIn the event this information is protected by the Federal Confidentiality of Alcohol and Drug Abuse Patient Records regulations: The Federal rules restrict any use of the information to criminally investigate or prosecute any alcohol or drug abuse patient.[facility] HospitalIn the event this information is protected by the Federal Confidentiality of Alcohol and Drug Abuse Patient Records regulations: The Federal rules restrict any use of the information to criminally investigate or prosecute any alcohol or drug abuse patient.[facility] HospitalIn the event this information is protected by the Federal Confidentiality of Alcohol and Drug Abuse Patient Records regulations: The Federal rules restrict any use of the information to criminally investigate or prosecute any alcohol or drug abuse patient.[facility] HospitalIn the event this information is protected by the Federal Confidentiality of Alcohol and Drug Abuse Patient Records regulations: The Federal rules restrict any use of the information to criminally investigate or prosecute any alcohol or drug abuse patient.[facility] HospitalIn the event this information is protected by the Federal Confidentiality of Alcohol and Drug Abuse Patient Records regulations: The Federal rules restrict any use of the information to criminally investigate or prosecute any alcohol or drug abuse patient.[facility] HospitalIn the event this information is protected by the Federal Confidentiality of Alcohol and Drug Abuse Patient Records regulations: The Federal rules restrict any use of the information to criminally investigate or prosecute any alcohol or drug abuse patient.[facility] HospitalIn the event this information is protected by the Federal Confidentiality of Alcohol and Drug Abuse Patient Records regulations: The Federal rules restrict any use of the information to criminally investigate or prosecute any alcohol or drug abuse patient.[facility] HospitalIn the event this information is protected by the Federal Confidentiality of Alcohol and Drug Abuse Patient Records regulations: The Federal rules restrict any use of the information to criminally investigate or prosecute any alcohol or drug abuse patient.[facility] HospitalIn the event this information is protected by the Federal Confidentiality of Alcohol and Drug Abuse Patient Records regulations: The Federal rules restrict any use of the information to criminally investigate or prosecute any alcohol or drug abuse patient.[facility] HospitalIn the event this information is protected by the Federal Confidentiality of Alcohol and Drug Abuse Patient Records regulations: The Federal rules restrict any use of the information to criminally investigate or prosecute any alcohol or drug abuse patient.[facility] HospitalIn the event this information is protected by the Federal Confidentiality of Alcohol and Drug Abuse Patient Records regulations: The Federal rules restrict any use of the information to criminally investigate or prosecute any alcohol or drug abuse patient.[facility] HospitalIn the event this information is protected by the Federal Confidentiality of Alcohol and Drug Abuse Patient Records regulations: The Federal rules restrict any use of the information to criminally investigate or prosecute any alcohol or drug abuse patient.[facility] HospitalIn the event this information is protected by the Federal Confidentiality of Alcohol and Drug Abuse Patient Records regulations: The Federal rules restrict any use of the information to criminally investigate or prosecute any alcohol or drug abuse patient.[facility] HospitalIn the event this information is protected by the Federal Confidentiality of Alcohol and Drug Abuse Patient Records regulations: The Federal rules restrict any use of the information to criminally investigate or prosecute any alcohol or drug abuse patient.[facility] HospitalIn the event this information is protected by the Federal Confidentiality of Alcohol and Drug Abuse Patient Records regulations: The Federal rules restrict any use of the information to criminally investigate or prosecute any alcohol or drug abuse patient.[facility] HospitalIn the event this information is protected by the Federal Confidentiality of Alcohol and Drug Abuse Patient Records regulations: The Federal rules restrict any use of the information to criminally investigate or prosecute any alcohol or drug abuse patient.[facility] HospitalIn the event this information is protected by the Federal Confidentiality of Alcohol and Drug Abuse Patient Records regulations: The Federal rules restrict any use of the information to criminally investigate or prosecute any alcohol or drug abuse patient.[facility] HospitalIn the event this information is protected by the Federal Confidentiality of Alcohol and Drug Abuse Patient Records regulations: The Federal rules restrict any use of the information to criminally investigate or prosecute any alcohol or drug abuse patient.[facility]In the event this information is protected by the Federal Confidentiality of Alcohol and Drug Abuse Patient Records regulations: The Federal rules restrict any use of the information to criminally investigate or prosecute any alcohol or drug abuse patient.[facility] HospitalIn the event this information is protected by the Federal Confidentiality of Alcohol and Drug Abuse Patient Records regulations: The Federal rules restrict any use of the information to criminally investigate or prosecute any alcohol or drug abuse patient.[facility] HospitalIn the event this information is protected by the Federal Confidentiality of Alcohol and Drug Abuse Patient Records regulations: The Federal rules restrict any use of the information to criminally investigate or prosecute any alcohol or drug abuse patient.[facility] HospitalIn the event this information is protected by the Federal Confidentiality of Alcohol and Drug Abuse Patient Records regulations: The Federal rules restrict any use of the information to criminally investigate or prosecute any alcohol or drug abuse patient.[facility] HospitalIn the event this information is protected by the Federal Confidentiality of Alcohol and Drug Abuse Patient Records regulations: The Federal rules restrict any use of the information to criminally investigate or prosecute any alcohol or drug abuse patient.[facility] HospitalIn the event this information is protected by the Federal Confidentiality of Alcohol and Drug Abuse Patient Records regulations: The Federal rules restrict any use of the information to criminally investigate or prosecute any alcohol or drug abuse patient.[facility] HospitalIn the event this information is protected by the Federal Confidentiality of Alcohol and Drug Abuse Patient Records regulations: The Federal rules restrict any use of the information to criminally investigate or prosecute any alcohol or drug abuse patient.[facility] HospitalIn the event this information is protected by the Federal Confidentiality of Alcohol and Drug Abuse Patient Records regulations: The Federal rules restrict any use of the information to criminally investigate or prosecute any alcohol or drug abuse patient.[facility] HospitalIn the event this information is protected by the Federal Confidentiality of Alcohol and Drug Abuse Patient Records regulations: The Federal rules restrict any use of the information to criminally investigate or prosecute any alcohol or drug abuse patient.[facility] HospitalIn the event this information is protected by the Federal Confidentiality of Alcohol and Drug Abuse Patient Records regulations: The Federal rules restrict any use of the information to criminally investigate or prosecute any alcohol or drug abuse patient.[facility] HospitalIn the event this information is protected by the Federal Confidentiality of Alcohol and Drug Abuse Patient Records regulations: The Federal rules restrict any use of the information to criminally investigate or prosecute any alcohol or drug abuse patient.[facility] HospitalIn the event this information is protected by the Federal Confidentiality of Alcohol and Drug Abuse Patient Records regulations: The Federal rules restrict any use of the information to criminally investigate or prosecute any alcohol or drug abuse patient.[facility] HospitalIn the event this information is protected by the Federal Confidentiality of Alcohol and Drug Abuse Patient Records regulations: The Federal rules restrict any use of the information to criminally investigate or prosecute any alcohol or drug abuse patient.[facility] HospitalIn the event this information is protected by the Federal Confidentiality of Alcohol and Drug Abuse Patient Records regulations: The Federal rules restrict any use of the information to criminally investigate or prosecute any alcohol or drug abuse patient.[facility] HospitalIn the event this information is protected by the Federal Confidentiality of Alcohol and Drug Abuse Patient Records regulations: The Federal rules restrict any use of the information to criminally investigate or prosecute any alcohol or drug abuse patient.[facility] HospitalIn the event this information is protected by the Federal Confidentiality of Alcohol and Drug Abuse Patient Records regulations: The Federal rules restrict any use of the information to criminally investigate or prosecute any alcohol or drug abuse patient.[facility] HospitalIn the event this information is protected by the Federal Confidentiality of Alcohol and Drug Abuse Patient Records regulations: The Federal rules restrict any use of the information to criminally investigate or prosecute any alcohol or drug abuse patient.[facility] HospitalIn the event this information is protected by the Federal Confidentiality of Alcohol and Drug Abuse Patient Records regulations: The Federal rules restrict any use of the information to criminally investigate or prosecute any alcohol or drug abuse patient.[facility] HospitalIn the event this information is protected by the Federal Confidentiality of Alcohol and Drug Abuse Patient Records regulations: The Federal rules restrict any use of the information to criminally investigate or prosecute any alcohol or drug abuse patient.[facility] HospitalIn the event this information is protected by the Federal Confidentiality of Alcohol and Drug Abuse Patient Records regulations: The Federal rules restrict any use of the information to criminally investigate or prosecute any alcohol or drug abuse patient.[facility] HospitalIn the event this information is protected by the Federal Confidentiality of Alcohol and Drug Abuse Patient Records regulations: The Federal rules restrict any use of the information to criminally investigate or prosecute any alcohol or drug abuse patient.[facility] HospitalIn the event this information is protected by the Federal Confidentiality of Alcohol and Drug Abuse Patient Records regulations: The Federal rules restrict any use of the information to criminally investigate or prosecute any alcohol or drug abuse patient.[facility] HospitalIn the event this information is protected by the Federal Confidentiality of Alcohol and Drug Abuse Patient Records regulations: The Federal rules restrict any use of the information to criminally investigate or prosecute any alcohol or drug abuse patient.[facility] HospitalIn the event this information is protected by the Federal Confidentiality of Alcohol and Drug Abuse Patient Records regulations: The Federal rules restrict any use of the information to criminally investigate or prosecute any alcohol or drug abuse patient.[facility] HospitalIn the event this information is protected by the Federal Confidentiality of Alcohol and Drug Abuse Patient Records regulations: The Federal rules restrict any use of the information to criminally investigate or prosecute any alcohol or drug abuse patient.[facility] HospitalIn the event this information is protected by the Federal Confidentiality of Alcohol and Drug Abuse Patient Records regulations: The Federal rules restrict any use of the information to criminally investigate or prosecute any alcohol or drug abuse patient.[facility] HospitalIn the event this information is protected by the Federal Confidentiality of Alcohol and Drug Abuse Patient Records regulations: The Federal rules restrict any use of the information to criminally investigate or prosecute any alcohol or drug abuse patient.[facility] HospitalIn the event this information is protected by the Federal Confidentiality of Alcohol and Drug Abuse Patient Records regulations: The Federal rules restrict any use of the information to criminally investigate or prosecute any alcohol or drug abuse patient.[facility] HospitalIn the event this information is protected by the Federal Confidentiality of Alcohol and Drug Abuse Patient Records regulations: The Federal rules restrict any use of the information to criminally investigate or prosecute any alcohol or drug abuse patient.[facility] HospitalIn the event this information is protected by the Federal Confidentiality of Alcohol and Drug Abuse Patient Records regulations: The Federal rules restrict any use of the information to criminally investigate or prosecute any alcohol or drug abuse patient.[facility] HospitalIn the event this information is protected by the Federal Confidentiality of Alcohol and Drug Abuse Patient Records regulations: The Federal rules restrict any use of the information to criminally investigate or prosecute any alcohol or drug abuse patient.[facility] HospitalIn the event this information is protected by the Federal Confidentiality of Alcohol and Drug Abuse Patient Records regulations: The Federal rules restrict any use of the information to criminally investigate or prosecute any alcohol or drug abuse patient.[facility] HospitalIn the event this information is protected by the Federal Confidentiality of Alcohol and Drug Abuse Patient Records regulations: The Federal rules restrict any use of the information to criminally investigate or prosecute any alcohol or drug abuse patient.[facility] HospitalIn the event this information is protected by the Federal Confidentiality of Alcohol and Drug Abuse Patient Records regulations: The Federal rules restrict any use of the information to criminally investigate or prosecute any alcohol or drug abuse patient.[facility] HospitalIn the event this information is protected by the Federal Confidentiality of Alcohol and Drug Abuse Patient Records regulations: The Federal rules restrict any use of the information to criminally investigate or prosecute any alcohol or drug abuse patient.[facility] HospitalIn the event this information is protected by the Federal Confidentiality of Alcohol and Drug Abuse Patient Records regulations: The Federal rules restrict any use of the information to criminally investigate or prosecute any alcohol or drug abuse patient.[facility] HospitalIn the event this information is protected by the Federal Confidentiality of Alcohol and Drug Abuse Patient Records regulations: The Federal rules restrict any use of the information to criminally investigate or prosecute any alcohol or drug abuse patient.[facility] HospitalIn the event this information is protected by the Federal Confidentiality of Alcohol and Drug Abuse Patient Records regulations: The Federal rules restrict any use of the information to criminally investigate or prosecute any alcohol or drug abuse patient.[facility] HospitalIn the event this information is protected by the Federal Confidentiality of Alcohol and Drug Abuse Patient Records regulations: The Federal rules restrict any use of the information to criminally investigate or prosecute any alcohol or drug abuse patient.[facility] HospitalIn the event this information is protected by the Federal Confidentiality of Alcohol and Drug Abuse Patient Records regulations: The Federal rules restrict any use of the information to criminally investigate or prosecute any alcohol or drug abuse patient.[facility] HospitalIn the event this information is protected by the Federal Confidentiality of Alcohol and Drug Abuse Patient Records regulations: The Federal rules restrict any use of the information to criminally investigate or prosecute any alcohol or drug abuse patient.[facility] HospitalIn the event this information is protected by the Federal Confidentiality of Alcohol and Drug Abuse Patient Records regulations: The Federal rules restrict any use of the information to criminally investigate or prosecute any alcohol or drug abuse patient.[facility] HospitalIn the event this information is protected by the Federal Confidentiality of Alcohol and Drug Abuse Patient Records regulations: The Federal rules restrict any use of the information to criminally investigate or prosecute any alcohol or drug abuse patient.[facility] HospitalIn the event this information is protected by the Federal Confidentiality of Alcohol and Drug Abuse Patient Records regulations: The Federal rules restrict any use of the information to criminally investigate or prosecute any alcohol or drug abuse patient.[facility] HospitalIn the event this information is protected by the Federal Confidentiality of Alcohol and Drug Abuse Patient Records regulations: The Federal rules restrict any use of the information to criminally investigate or prosecute any alcohol or drug abuse patient.[facility] HospitalIn the event this information is protected by the Federal Confidentiality of Alcohol and Drug Abuse Patient Records regulations: The Federal rules restrict any use of the information to criminally investigate or prosecute any alcohol or drug abuse patient.[facility] HospitalIn the event this information is protected by the Federal Confidentiality of Alcohol and Drug Abuse Patient Records regulations: The Federal rules restrict any use of the information to criminally investigate or prosecute any alcohol or drug abuse patient.[facility] HospitalIn the event this information is protected by the Federal Confidentiality of Alcohol and Drug Abuse Patient Records regulations: The Federal rules restrict any use of the information to criminally investigate or prosecute any alcohol or drug abuse patient.[facility] HospitalIn the event this information is protected by the Federal Confidentiality of Alcohol and Drug Abuse Patient Records regulations: The Federal rules restrict any use of the information to criminally investigate or prosecute any alcohol or drug abuse patient.[facility] HospitalIn the event this information is protected by the Federal Confidentiality of Alcohol and Drug Abuse Patient Records regulations: The Federal rules restrict any use of the information to criminally investigate or prosecute any alcohol or drug abuse patient.[facility]In the event this information is protected by the Federal Confidentiality of Alcohol and Drug Abuse Patient Records regulations: The Federal rules restrict any use of the information to criminally investigate or prosecute any alcohol or drug abuse patient.[facility] HospitalIn the event this information is protected by the Federal Confidentiality of Alcohol and Drug Abuse Patient Records regulations: The Federal rules restrict any use of the information to criminally investigate or prosecute any alcohol or drug abuse patient.[facility] HospitalIn the event this information is protected by the Federal Confidentiality of Alcohol and Drug Abuse Patient Records regulations: The Federal rules restrict any use of the information to criminally investigate or prosecute any alcohol or drug abuse patient.[facility] HospitalIn the event this information is protected by the Federal Confidentiality of Alcohol and Drug Abuse Patient Records regulations: The Federal rules restrict any use of the information to criminally investigate or prosecute any alcohol or drug abuse patient.[facility] HospitalIn the event this information is protected by the Federal Confidentiality of Alcohol and Drug Abuse Patient Records regulations: The Federal rules restrict any use of the information to criminally investigate or prosecute any alcohol or drug abuse patient.[facility] HospitalIn the event this information is protected by the Federal Confidentiality of Alcohol and Drug Abuse Patient Records regulations: The Federal rules restrict any use of the information to criminally investigate or prosecute any alcohol or drug abuse patient.[facility] HospitalIn the event this information is protected by the Federal Confidentiality of Alcohol and Drug Abuse Patient Records regulations: The Federal rules restrict any use of the information to criminally investigate or prosecute any alcohol or drug abuse patient.[facility] HospitalIn the event this information is protected by the Federal Confidentiality of Alcohol and Drug Abuse Patient Records regulations: The Federal rules restrict any use of the information to criminally investigate or prosecute any alcohol or drug abuse patient.[facility] HospitalIn the event this information is protected by the Federal Confidentiality of Alcohol and Drug Abuse Patient Records regulations: The Federal rules restrict any use of the information to criminally investigate or prosecute any alcohol or drug abuse patient.[facility] HospitalIn the event this information is protected by the Federal Confidentiality of Alcohol and Drug Abuse Patient Records regulations: The Federal rules restrict any use of the information to criminally investigate or prosecute any alcohol or drug abuse patient.[facility] HospitalIn the event this information is protected by the Federal Confidentiality of Alcohol and Drug Abuse Patient Records regulations: The Federal rules restrict any use of the information to criminally investigate or prosecute any alcohol or drug abuse patient.[facility] HospitalIn the event this information is protected by the Federal Confidentiality of Alcohol and Drug Abuse Patient Records regulations: The Federal rules restrict any use of the information to criminally investigate or prosecute any alcohol or drug abuse patient.[facility] HospitalIn the event this information is protected by the Federal Confidentiality of Alcohol and Drug Abuse Patient Records regulations: The Federal rules restrict any use of the information to criminally investigate or prosecute any alcohol or drug abuse patient.[facility] HospitalIn the event this information is protected by the Federal Confidentiality of Alcohol and Drug Abuse Patient Records regulations: The Federal rules restrict any use of the information to criminally investigate or prosecute any alcohol or drug abuse patient.[facility] HospitalIn the event this information is protected by the Federal Confidentiality of Alcohol and Drug Abuse Patient Records regulations: The Federal rules restrict any use of the information to criminally investigate or prosecute any alcohol or drug abuse patient.[facility] HospitalIn the event this information is protected by the Federal Confidentiality of Alcohol and Drug Abuse Patient Records regulations: The Federal rules restrict any use of the information to criminally investigate or prosecute any alcohol or drug abuse patient.[facility] HospitalIn the event this information is protected by the Federal Confidentiality of Alcohol and Drug Abuse Patient Records regulations: The Federal rules restrict any use of the information to criminally investigate or prosecute any alcohol or drug abuse patient.[facility] HospitalIn the event this information is protected by the Federal Confidentiality of Alcohol and Drug Abuse Patient Records regulations: The Federal rules restrict any use of the information to criminally investigate or prosecute any alcohol or drug abuse patient.[facility] HospitalIn the event this information is protected by the Federal Confidentiality of Alcohol and Drug Abuse Patient Records regulations: The Federal rules restrict any use of the information to criminally investigate or prosecute any alcohol or drug abuse patient.[facility] HospitalIn the event this information is protected by the Federal Confidentiality of Alcohol and Drug Abuse Patient Records regulations: The Federal rules restrict any use of the information to criminally investigate or prosecute any alcohol or drug abuse patient.[facility] HospitalIn the event this information is protected by the Federal Confidentiality of Alcohol and Drug Abuse Patient Records regulations: The Federal rules restrict any use of the information to criminally investigate or prosecute any alcohol or drug abuse patient.[facility] HospitalIn the event this information is protected by the Federal Confidentiality of Alcohol and Drug Abuse Patient Records regulations: The Federal rules restrict any use of the information to criminally investigate or prosecute any alcohol or drug abuse patient.[facility] HospitalIn the event this information is protected by the Federal Confidentiality of Alcohol and Drug Abuse Patient Records regulations: The Federal rules restrict any use of the information to criminally investigate or prosecute any alcohol or drug abuse patient.[facility] HospitalIn the event this information is protected by the Federal Confidentiality of Alcohol and Drug Abuse Patient Records regulations: The Federal rules restrict any use of the information to criminally investigate or prosecute any alcohol or drug abuse patient.[facility] HospitalIn the event this information is protected by the Federal Confidentiality of Alcohol and Drug Abuse Patient Records regulations: The Federal rules restrict any use of the information to criminally investigate or prosecute any alcohol or drug abuse patient.[facility] HospitalIn the event this information is protected by the Federal Confidentiality of Alcohol and Drug Abuse Patient Records regulations: The Federal rules restrict any use of the information to criminally investigate or prosecute any alcohol or drug abuse patient.[facility] HospitalIn the event this information is protected by the Federal Confidentiality of Alcohol and Drug Abuse Patient Records regulations: The Federal rules restrict any use of the information to criminally investigate or prosecute any alcohol or drug abuse patient.[facility] HospitalIn the event this information is protected by the Federal Confidentiality of Alcohol and Drug Abuse Patient Records regulations: The Federal rules restrict any use of the information to criminally investigate or prosecute any alcohol or drug abuse patient.[facility] HospitalIn the event this information is protected by the Federal Confidentiality of Alcohol and Drug Abuse Patient Records regulations: The Federal rules restrict any use of the information to criminally investigate or prosecute any alcohol or drug abuse patient.[facility] HospitalIn the event this information is protected by the Federal Confidentiality of Alcohol and Drug Abuse Patient Records regulations: The Federal rules restrict any use of the information to criminally investigate or prosecute any alcohol or drug abuse patient.[facility] HospitalIn the event this information is protected by the Federal Confidentiality of Alcohol and Drug Abuse Patient Records regulations: The Federal rules restrict any use of the information to criminally investigate or prosecute any alcohol or drug abuse patient.[facility] HospitalIn the event this information is protected by the Federal Confidentiality of Alcohol and Drug Abuse Patient Records regulations: The Federal rules restrict any use of the information to criminally investigate or prosecute any alcohol or drug abuse patient.[facility] HospitalIn the event this information is protected by the Federal Confidentiality of Alcohol and Drug Abuse Patient Records regulations: The Federal rules restrict any use of the information to criminally investigate or prosecute any alcohol or drug abuse patient.[facility] HospitalIn the event this information is protected by the Federal Confidentiality of Alcohol and Drug Abuse Patient Records regulations: The Federal rules restrict any use of the information to criminally investigate or prosecute any alcohol or drug abuse patient.[facility] HospitalIn the event this information is protected by the Federal Confidentiality of Alcohol and Drug Abuse Patient Records regulations: The Federal rules restrict any use of the information to criminally investigate or prosecute any alcohol or drug abuse patient.[facility] HospitalIn the event this information is protected by the Federal Confidentiality of Alcohol and Drug Abuse Patient Records regulations: The Federal rules restrict any use of the information to criminally investigate or prosecute any alcohol or drug abuse patient.[facility] HospitalIn the event this information is protected by the Federal Confidentiality of Alcohol and Drug Abuse Patient Records regulations: The Federal rules restrict any use of the information to criminally investigate or prosecute any alcohol or drug abuse patient.[facility] HospitalIn the event this information is protected by the Federal Confidentiality of Alcohol and Drug Abuse Patient Records regulations: The Federal rules restrict any use of the information to criminally investigate or prosecute any alcohol or drug abuse patient.[facility] HospitalIn the event this information is protected by the Federal Confidentiality of Alcohol and Drug Abuse Patient Records regulations: The Federal rules restrict any use of the information to criminally investigate or prosecute any alcohol or drug abuse patient.[facility] HospitalIn the event this information is protected by the Federal Confidentiality of Alcohol and Drug Abuse Patient Records regulations: The Federal rules restrict any use of the information to criminally investigate or prosecute any alcohol or drug abuse patient.[facility] HospitalIn the event this information is protected by the Federal Confidentiality of Alcohol and Drug Abuse Patient Records regulations: The Federal rules restrict any use of the information to criminally investigate or prosecute any alcohol or drug abuse patient.[facility] HospitalIn the event this information is protected by the Federal Confidentiality of Alcohol and Drug Abuse Patient Records regulations: The Federal rules restrict any use of the information to criminally investigate or prosecute any alcohol or drug abuse patient.[facility] HospitalIn the event this information is protected by the Federal Confidentiality of Alcohol and Drug Abuse Patient Records regulations: The Federal rules restrict any use of the information to criminally investigate or prosecute any alcohol or drug abuse patient.[facility] HospitalIn the event this information is protected by the Federal Confidentiality of Alcohol and Drug Abuse Patient Records regulations: The Federal rules restrict any use of the information to criminally investigate or prosecute any alcohol or drug abuse patient.[facility] HospitalIn the event this information is protected by the Federal Confidentiality of Alcohol and Drug Abuse Patient Records regulations: The Federal rules restrict any use of the information to criminally investigate or prosecute any alcohol or drug abuse patient.[facility] HospitalIn the event this information is protected by the Federal Confidentiality of Alcohol and Drug Abuse Patient Records regulations: The Federal rules restrict any use of the information to criminally investigate or prosecute any alcohol or drug abuse patient.[facility] HospitalIn the event this information is protected by the Federal Confidentiality of Alcohol and Drug Abuse Patient Records regulations: The Federal rules restrict any use of the information to criminally investigate or prosecute any alcohol or drug abuse patient.[facility] HospitalIn the event this information is protected by the Federal Confidentiality of Alcohol and Drug Abuse Patient Records regulations: The Federal rules restrict any use of the information to criminally investigate or prosecute any alcohol or drug abuse patient.[facility] HospitalIn the event this information is protected by the Federal Confidentiality of Alcohol and Drug Abuse Patient Records regulations: The Federal rules restrict any use of the information to criminally investigate or prosecute any alcohol or drug abuse patient.[facility] HospitalIn the event this information is protected by the Federal Confidentiality of Alcohol and Drug Abuse Patient Records regulations: The Federal rules restrict any use of the information to criminally investigate or prosecute any alcohol or drug abuse patient.[facility]In the event this information is protected by the Federal Confidentiality of Alcohol and Drug Abuse Patient Records regulations: The Federal rules restrict any use of the information to criminally investigate or prosecute any alcohol or drug abuse patient.[facility] HospitalIn the event this information is protected by the Federal Confidentiality of Alcohol and Drug Abuse Patient Records regulations: The Federal rules restrict any use of the information to criminally investigate or prosecute any alcohol or drug abuse patient.[facility] HospitalIn the event this information is protected by the Federal Confidentiality of Alcohol and Drug Abuse Patient Records regulations: The Federal rules restrict any use of the information to criminally investigate or prosecute any alcohol or drug abuse patient.[facility] HospitalIn the event this information is protected by the Federal Confidentiality of Alcohol and Drug Abuse Patient Records regulations: The Federal rules restrict any use of the information to criminally investigate or prosecute any alcohol or drug abuse patient.[facility] HospitalIn the event this information is protected by the Federal Confidentiality of Alcohol and Drug Abuse Patient Records regulations: The Federal rules restrict any use of the information to criminally investigate or prosecute any alcohol or drug abuse patient.[facility] HospitalIn the event this information is protected by the Federal Confidentiality of Alcohol and Drug Abuse Patient Records regulations: The Federal rules restrict any use of the information to criminally investigate or prosecute any alcohol or drug abuse patient.[facility] HospitalIn the event this information is protected by the Federal Confidentiality of Alcohol and Drug Abuse Patient Records regulations: The Federal rules restrict any use of the information to criminally investigate or prosecute any alcohol or drug abuse patient.[facility]In the event this information is protected by the Federal Confidentiality of Alcohol and Drug Abuse Patient Records regulations: The Federal rules restrict any use of the information to criminally investigate or prosecute any alcohol or drug abuse patient.[facility] HospitalIn the event this information is protected by the Federal Confidentiality of Alcohol and Drug Abuse Patient Records regulations: The Federal rules restrict any use of the information to criminally investigate or prosecute any alcohol or drug abuse patient.[facility] HospitalIn the event this information is protected by the Federal Confidentiality of Alcohol and Drug Abuse Patient Records regulations: The Federal rules restrict any use of the information to criminally investigate or prosecute any alcohol or drug abuse patient.[facility] HospitalIn the event this information is protected by the Federal Confidentiality of Alcohol and Drug Abuse Patient Records regulations: The Federal rules restrict any use of the information to criminally investigate or prosecute any alcohol or drug abuse patient.[facility] HospitalIn the event this information is protected by the Federal Confidentiality of Alcohol and Drug Abuse Patient Records regulations: The Federal rules restrict any use of the information to criminally investigate or prosecute any alcohol or drug abuse patient.[facility] HospitalIn the event this information is protected by the Federal Confidentiality of Alcohol and Drug Abuse Patient Records regulations: The Federal rules restrict any use of the information to criminally investigate or prosecute any alcohol or drug abuse patient.[facility] HospitalIn the event this information is protected by the Federal Confidentiality of Alcohol and Drug Abuse Patient Records regulations: The Federal rules restrict any use of the information to criminally investigate or prosecute any alcohol or drug abuse patient.[facility] HospitalIn the event this information is protected by the Federal Confidentiality of Alcohol and Drug Abuse Patient Records regulations: The Federal rules restrict any use of the information to criminally investigate or prosecute any alcohol or drug abuse patient.[facility] HospitalIn the event this information is protected by the Federal Confidentiality of Alcohol and Drug Abuse Patient Records regulations: The Federal rules restrict any use of the information to criminally investigate or prosecute any alcohol or drug abuse patient.[facility] HospitalIn the event this information is protected by the Federal Confidentiality of Alcohol and Drug Abuse Patient Records regulations: The Federal rules restrict any use of the information to criminally investigate or prosecute any alcohol or drug abuse patient.[facility] HospitalIn the event this information is protected by the Federal Confidentiality of Alcohol and Drug Abuse Patient Records regulations: The Federal rules restrict any use of the information to criminally investigate or prosecute any alcohol or drug abuse patient.[facility] HospitalIn the event this information is protected by the Federal Confidentiality of Alcohol and Drug Abuse Patient Records regulations: The Federal rules restrict any use of the information to criminally investigate or prosecute any alcohol or drug abuse patient.[facility] HospitalIn the event this information is protected by the Federal Confidentiality of Alcohol and Drug Abuse Patient Records regulations: The Federal rules restrict any use of the information to criminally investigate or prosecute any alcohol or drug abuse patient.[facility] HospitalIn the event this information is protected by the Federal Confidentiality of Alcohol and Drug Abuse Patient Records regulations: The Federal rules restrict any use of the information to criminally investigate or prosecute any alcohol or drug abuse patient.[facility] HospitalIn the event this information is protected by the Federal Confidentiality of Alcohol and Drug Abuse Patient Records regulations: The Federal rules restrict any use of the information to criminally investigate or prosecute any alcohol or drug abuse patient.[facility] HospitalIn the event this information is protected by the Federal Confidentiality of Alcohol and Drug Abuse Patient Records regulations: The Federal rules restrict any use of the information to criminally investigate or prosecute any alcohol or drug abuse patient.[facility] HospitalIn the event this information is protected by the Federal Confidentiality of Alcohol and Drug Abuse Patient Records regulations: The Federal rules restrict any use of the information to criminally investigate or prosecute any alcohol or drug abuse patient.[facility] HospitalIn the event this information is protected by the Federal Confidentiality of Alcohol and Drug Abuse Patient Records regulations: The Federal rules restrict any use of the information to criminally investigate or prosecute any alcohol or drug abuse patient.[facility] HospitalIn the event this information is protected by the Federal Confidentiality of Alcohol and Drug Abuse Patient Records regulations: The Federal rules restrict any use of the information to criminally investigate or prosecute any alcohol or drug abuse patient.[facility] HospitalIn the event this information is protected by the Federal Confidentiality of Alcohol and Drug Abuse Patient Records regulations: The Federal rules restrict any use of the information to criminally investigate or prosecute any alcohol or drug abuse patient.[facility] HospitalIn the event this information is protected by the Federal Confidentiality of Alcohol and Drug Abuse Patient Records regulations: The Federal rules restrict any use of the information to criminally investigate or prosecute any alcohol or drug abuse patient.[facility] HospitalIn the event this information is protected by the Federal Confidentiality of Alcohol and Drug Abuse Patient Records regulations: The Federal rules restrict any use of the information to criminally investigate or prosecute any alcohol or drug abuse patient.[facility] HospitalIn the event this information is protected by the Federal Confidentiality of Alcohol and Drug Abuse Patient Records regulations: The Federal rules restrict any use of the information to criminally investigate or prosecute any alcohol or drug abuse patient.[facility] HospitalIn the event this information is protected by the Federal Confidentiality of Alcohol and Drug Abuse Patient Records regulations: The Federal rules restrict any use of the information to criminally investigate or prosecute any alcohol or drug abuse patient.[facility] HospitalIn the event this information is protected by the Federal Confidentiality of Alcohol and Drug Abuse Patient Records regulations: The Federal rules restrict any use of the information to criminally investigate or prosecute any alcohol or drug abuse patient.[facility] HospitalIn the event this information is protected by the Federal Confidentiality of Alcohol and Drug Abuse Patient Records regulations: The Federal rules restrict any use of the information to criminally investigate or prosecute any alcohol or drug abuse patient.[facility] HospitalIn the event this information is protected by the Federal Confidentiality of Alcohol and Drug Abuse Patient Records regulations: The Federal rules restrict any use of the information to criminally investigate or prosecute any alcohol or drug abuse patient.[facility] HospitalIn the event this information is protected by the Federal Confidentiality of Alcohol and Drug Abuse Patient Records regulations: The Federal rules restrict any use of the information to criminally investigate or prosecute any alcohol or drug abuse patient.[facility] HospitalIn the event this information is protected by the Federal Confidentiality of Alcohol and Drug Abuse Patient Records regulations: The Federal rules restrict any use of the information to criminally investigate or prosecute any alcohol or drug abuse patient.[facility] HospitalIn the event this information is protected by the Federal Confidentiality of Alcohol and Drug Abuse Patient Records regulations: The Federal rules restrict any use of the information to criminally investigate or prosecute any alcohol or drug abuse patient.[facility] HospitalIn the event this information is protected by the Federal Confidentiality of Alcohol and Drug Abuse Patient Records regulations: The Federal rules restrict any use of the information to criminally investigate or prosecute any alcohol or drug abuse patient.[facility] HospitalIn the event this information is protected by the Federal Confidentiality of Alcohol and Drug Abuse Patient Records regulations: The Federal rules restrict any use of the information to criminally investigate or prosecute any alcohol or drug abuse patient.[facility] HospitalIn the event this information is protected by the Federal Confidentiality of Alcohol and Drug Abuse Patient Records regulations: The Federal rules restrict any use of the information to criminally investigate or prosecute any alcohol or drug abuse patient.[facility] HospitalIn the event this information is protected by the Federal Confidentiality of Alcohol and Drug Abuse Patient Records regulations: The Federal rules restrict any use of the information to criminally investigate or prosecute any alcohol or drug abuse patient.[facility] HospitalIn the event this information is protected by the Federal Confidentiality of Alcohol and Drug Abuse Patient Records regulations: The Federal rules restrict any use of the information to criminally investigate or prosecute any alcohol or drug abuse patient.[facility] HospitalIn the event this information is protected by the Federal Confidentiality of Alcohol and Drug Abuse Patient Records regulations: The Federal rules restrict any use of the information to criminally investigate or prosecute any alcohol or drug abuse patient.[facility] HospitalIn the event this information is protected by the Federal Confidentiality of Alcohol and Drug Abuse Patient Records regulations: The Federal rules restrict any use of the information to criminally investigate or prosecute any alcohol or drug abuse patient.[facility] HospitalIn the event this information is protected by the Federal Confidentiality of Alcohol and Drug Abuse Patient Records regulations: The Federal rules restrict any use of the information to criminally investigate or prosecute any alcohol or drug abuse patient.[facility] HospitalIn the event this information is protected by the Federal Confidentiality of Alcohol and Drug Abuse Patient Records regulations: The Federal rules restrict any use of the information to criminally investigate or prosecute any alcohol or drug abuse patient.[facility] HospitalIn the event this information is protected by the Federal Confidentiality of Alcohol and Drug Abuse Patient Records regulations: The Federal rules restrict any use of the information to criminally investigate or prosecute any alcohol or drug abuse patient.[facility] HospitalIn the event this information is protected by the Federal Confidentiality of Alcohol and Drug Abuse Patient Records regulations: The Federal rules restrict any use of the information to criminally investigate or prosecute any alcohol or drug abuse patient.[facility] HospitalIn the event this information is protected by the Federal Confidentiality of Alcohol and Drug Abuse Patient Records regulations: The Federal rules restrict any use of the information to criminally investigate or prosecute any alcohol or drug abuse patient.[facility] HospitalIn the event this information is protected by the Federal Confidentiality of Alcohol and Drug Abuse Patient Records regulations: The Federal rules restrict any use of the information to criminally investigate or prosecute any alcohol or drug abuse patient.[facility]In the event this information is protected by the Federal Confidentiality of Alcohol and Drug Abuse Patient Records regulations: The Federal rules restrict any use of the information to criminally investigate or prosecute any alcohol or drug abuse patient.[facility] HospitalIn the event this information is protected by the Federal Confidentiality of Alcohol and Drug Abuse Patient Records regulations: The Federal rules restrict any use of the information to criminally investigate or prosecute any alcohol or drug abuse patient.[facility] HospitalIn the event this information is protected by the Federal Confidentiality of Alcohol and Drug Abuse Patient Records regulations: The Federal rules restrict any use of the information to criminally investigate or prosecute any alcohol or drug abuse patient.[facility] HospitalIn the event this information is protected by the Federal Confidentiality of Alcohol and Drug Abuse Patient Records regulations: The Federal rules restrict any use of the information to criminally investigate or prosecute any alcohol or drug abuse patient.[facility] HospitalIn the event this information is protected by the Federal Confidentiality of Alcohol and Drug Abuse Patient Records regulations: The Federal rules restrict any use of the information to criminally investigate or prosecute any alcohol or drug abuse patient.[facility] HospitalIn the event this information is protected by the Federal Confidentiality of Alcohol and Drug Abuse Patient Records regulations: The Federal rules restrict any use of the information to criminally investigate or prosecute any alcohol or drug abuse patient.[facility] HospitalIn the event this information is protected by the Federal Confidentiality of Alcohol and Drug Abuse Patient Records regulations: The Federal rules restrict any use of the information to criminally investigate or prosecute any alcohol or drug abuse patient.[facility] HospitalIn the event this information is protected by the Federal Confidentiality of Alcohol and Drug Abuse Patient Records regulations: The Federal rules restrict any use of the information to criminally investigate or prosecute any alcohol or drug abuse patient.[facility] HospitalIn the event this information is protected by the Federal Confidentiality of Alcohol and Drug Abuse Patient Records regulations: The Federal rules restrict any use of the information to criminally investigate or prosecute any alcohol or drug abuse patient.[facility] HospitalIn the event this information is protected by the Federal Confidentiality of Alcohol and Drug Abuse Patient Records regulations: The Federal rules restrict any use of the information to criminally investigate or prosecute any alcohol or drug abuse patient.[facility] HospitalIn the event this information is protected by the Federal Confidentiality of Alcohol and Drug Abuse Patient Records regulations: The Federal rules restrict any use of the information to criminally investigate or prosecute any alcohol or drug abuse patient.[facility] HospitalIn the event this information is protected by the Federal Confidentiality of Alcohol and Drug Abuse Patient Records regulations: The Federal rules restrict any use of the information to criminally investigate or prosecute any alcohol or drug abuse patient.[facility] HospitalIn the event this information is protected by the Federal Confidentiality of Alcohol and Drug Abuse Patient Records regulations: The Federal rules restrict any use of the information to criminally investigate or prosecute any alcohol or drug abuse patient.[facility] HospitalIn the event this information is protected by the Federal Confidentiality of Alcohol and Drug Abuse Patient Records regulations: The Federal rules restrict any use of the information to criminally investigate or prosecute any alcohol or drug abuse patient.[facility] HospitalIn the event this information is protected by the Federal Confidentiality of Alcohol and Drug Abuse Patient Records regulations: The Federal rules restrict any use of the information to criminally investigate or prosecute any alcohol or drug abuse patient.[facility] HospitalIn the event this information is protected by the Federal Confidentiality of Alcohol and Drug Abuse Patient Records regulations: The Federal rules restrict any use of the information to criminally investigate or prosecute any alcohol or drug abuse patient.[facility] HospitalIn the event this information is protected by the Federal Confidentiality of Alcohol and Drug Abuse Patient Records regulations: The Federal rules restrict any use of the information to criminally investigate or prosecute any alcohol or drug abuse patient.[facility] HospitalIn the event this information is protected by the Federal Confidentiality of Alcohol and Drug Abuse Patient Records regulations: The Federal rules restrict any use of the information to criminally investigate or prosecute any alcohol or drug abuse patient.[facility] HospitalIn the event this information is protected by the Federal Confidentiality of Alcohol and Drug Abuse Patient Records regulations: The Federal rules restrict any use of the information to criminally investigate or prosecute any alcohol or drug abuse patient.[facility] HospitalIn the event this information is protected by the Federal Confidentiality of Alcohol and Drug Abuse Patient Records regulations: The Federal rules restrict any use of the information to criminally investigate or prosecute any alcohol or drug abuse patient.[facility] HospitalIn the event this information is protected by the Federal Confidentiality of Alcohol and Drug Abuse Patient Records regulations: The Federal rules restrict any use of the information to criminally investigate or prosecute any alcohol or drug abuse patient.[facility] HospitalIn the event this information is protected by the Federal Confidentiality of Alcohol and Drug Abuse Patient Records regulations: The Federal rules restrict any use of the information to criminally investigate or prosecute any alcohol or drug abuse patient.[facility] HospitalIn the event this information is protected by the Federal Confidentiality of Alcohol and Drug Abuse Patient Records regulations: The Federal rules restrict any use of the information to criminally investigate or prosecute any alcohol or drug abuse patient.[facility] HospitalIn the event this information is protected by the Federal Confidentiality of Alcohol and Drug Abuse Patient Records regulations: The Federal rules restrict any use of the information to criminally investigate or prosecute any alcohol or drug abuse patient.[facility] HospitalIn the event this information is protected by the Federal Confidentiality of Alcohol and Drug Abuse Patient Records regulations: The Federal rules restrict any use of the information to criminally investigate or prosecute any alcohol or drug abuse patient.[facility] HospitalIn the event this information is protected by the Federal Confidentiality of Alcohol and Drug Abuse Patient Records regulations: The Federal rules restrict any use of the information to criminally investigate or prosecute any alcohol or drug abuse patient.[facility] HospitalIn the event this information is protected by the Federal Confidentiality of Alcohol and Drug Abuse Patient Records regulations: The Federal rules restrict any use of the information to criminally investigate or prosecute any alcohol or drug abuse patient.[facility] HospitalIn the event this information is protected by the Federal Confidentiality of Alcohol and Drug Abuse Patient Records regulations: The Federal rules restrict any use of the information to criminally investigate or prosecute any alcohol or drug abuse patient.[facility] HospitalIn the event this information is protected by the Federal Confidentiality of Alcohol and Drug Abuse Patient Records regulations: The Federal rules restrict any use of the information to criminally investigate or prosecute any alcohol or drug abuse patient.[facility] HospitalIn the event this information is protected by the Federal Confidentiality of Alcohol and Drug Abuse Patient Records regulations: The Federal rules restrict any use of the information to criminally investigate or prosecute any alcohol or drug abuse patient.[facility] HospitalIn the event this information is protected by the Federal Confidentiality of Alcohol and Drug Abuse Patient Records regulations: The Federal rules restrict any use of the information to criminally investigate or prosecute any alcohol or drug abuse patient.[facility] HospitalIn the event this information is protected by the Federal Confidentiality of Alcohol and Drug Abuse Patient Records regulations: The Federal rules restrict any use of the information to criminally investigate or prosecute any alcohol or drug abuse patient.[facility] HospitalIn the event this information is protected by the Federal Confidentiality of Alcohol and Drug Abuse Patient Records regulations: The Federal rules restrict any use of the information to criminally investigate or prosecute any alcohol or drug abuse patient.[facility] HospitalIn the event this information is protected by the Federal Confidentiality of Alcohol and Drug Abuse Patient Records regulations: The Federal rules restrict any use of the information to criminally investigate or prosecute any alcohol or drug abuse patient.[facility] HospitalIn the event this information is protected by the Federal Confidentiality of Alcohol and Drug Abuse Patient Records regulations: The Federal rules restrict any use of the information to criminally investigate or prosecute any alcohol or drug abuse patient.[facility] HospitalIn the event this information is protected by the Federal Confidentiality of Alcohol and Drug Abuse Patient Records regulations: The Federal rules restrict any use of the information to criminally investigate or prosecute any alcohol or drug abuse patient.[facility] HospitalIn the event this information is protected by the Federal Confidentiality of Alcohol and Drug Abuse Patient Records regulations: The Federal rules restrict any use of the information to criminally investigate or prosecute any alcohol or drug abuse patient.[facility] HospitalIn the event this information is protected by the Federal Confidentiality of Alcohol and Drug Abuse Patient Records regulations: The Federal rules restrict any use of the information to criminally investigate or prosecute any alcohol or drug abuse patient.[facility] HospitalIn the event this information is protected by the Federal Confidentiality of Alcohol and Drug Abuse Patient Records regulations: The Federal rules restrict any use of the information to criminally investigate or prosecute any alcohol or drug abuse patient.[facility] HospitalIn the event this information is protected by the Federal Confidentiality of Alcohol and Drug Abuse Patient Records regulations: The Federal rules restrict any use of the information to criminally investigate or prosecute any alcohol or drug abuse patient.[facility] HospitalIn the event this information is protected by the Federal Confidentiality of Alcohol and Drug Abuse Patient Records regulations: The Federal rules restrict any use of the information to criminally investigate or prosecute any alcohol or drug abuse patient.[facility] HospitalIn the event this information is protected by the Federal Confidentiality of Alcohol and Drug Abuse Patient Records regulations: The Federal rules restrict any use of the information to criminally investigate or prosecute any alcohol or drug abuse patient.[facility] HospitalIn the event this information is protected by the Federal Confidentiality of Alcohol and Drug Abuse Patient Records regulations: The Federal rules restrict any use of the information to criminally investigate or prosecute any alcohol or drug abuse patient.[facility] HospitalIn the event this information is protected by the Federal Confidentiality of Alcohol and Drug Abuse Patient Records regulations: The Federal rules restrict any use of the information to criminally investigate or prosecute any alcohol or drug abuse patient.[facility] HospitalIn the event this information is protected by the Federal Confidentiality of Alcohol and Drug Abuse Patient Records regulations: The Federal rules restrict any use of the information to criminally investigate or prosecute any alcohol or drug abuse patient.[facility] HospitalIn the event this information is protected by the Federal Confidentiality of Alcohol and Drug Abuse Patient Records regulations: The Federal rules restrict any use of the information to criminally investigate or prosecute any alcohol or drug abuse patient.[facility] HospitalIn the event this information is protected by the Federal Confidentiality of Alcohol and Drug Abuse Patient Records regulations: The Federal rules restrict any use of the information to criminally investigate or prosecute any alcohol or drug abuse patient.[facility] HospitalIn the event this information is protected by the Federal Confidentiality of Alcohol and Drug Abuse Patient Records regulations: The Federal rules restrict any use of the information to criminally investigate or prosecute any alcohol or drug abuse patient.[facility] HospitalIn the event this information is protected by the Federal Confidentiality of Alcohol and Drug Abuse Patient Records regulations: The Federal rules restrict any use of the information to criminally investigate or prosecute any alcohol or drug abuse patient.[facility] HospitalIn the event this information is protected by the Federal Confidentiality of Alcohol and Drug Abuse Patient Records regulations: The Federal rules restrict any use of the information to criminally investigate or prosecute any alcohol or drug abuse patient.[facility] ClinicIn the event this information is protected by the Federal Confidentiality of Alcohol and Drug Abuse Patient Records regulations: The Federal rules restrict any use of the information to criminally investigate or prosecute any alcohol or drug abuse patient.[facility] HospitalIn the event this information is protected by the Federal Confidentiality of Alcohol and Drug Abuse Patient Records regulations: The Federal rules restrict any use of the information to criminally investigate or prosecute any alcohol or drug abuse patient.[facility] HospitalIn the event this information is protected by the Federal Confidentiality of Alcohol and Drug Abuse Patient Records regulations: The Federal rules restrict any use of the information to criminally investigate or prosecute any alcohol or drug abuse patient.[facility] HospitalIn the event this information is protected by the Federal Confidentiality of Alcohol and Drug Abuse Patient Records regulations: The Federal rules restrict any use of the information to criminally investigate or prosecute any alcohol or drug abuse patient.[facility] HospitalIn the event this information is protected by the Federal Confidentiality of Alcohol and Drug Abuse Patient Records regulations: The Federal rules restrict any use of the information to criminally investigate or prosecute any alcohol or drug abuse patient.[facility] HospitalIn the event this information is protected by the Federal Confidentiality of Alcohol and Drug Abuse Patient Records regulations: The Federal rules restrict any use of the information to criminally investigate or prosecute any alcohol or drug abuse patient.[facility] HospitalIn the event this information is protected by the Federal Confidentiality of Alcohol and Drug Abuse Patient Records regulations: The Federal rules restrict any use of the information to criminally investigate or prosecute any alcohol or drug abuse patient.[facility] Reason for Visit (unrecogniz ed section and content) Reason Comments New Patient Specialty Diagnoses / Procedures Referred By Jed tompkins Referred To Contact Neurology Diagnoses Seizure disorder (HCC) Procedures CONSULT TO NEUROLOGY OFFICE/OUTPATIENT NEW HIGH MDM 60 MINUTES Jessie Harmon APRN.OPERATIONS LABEL CLERK [address] [place] [address] Referral ID Status Reason Start Date Expiration Date V isits Requested Visits Authorized [id number] Closed PCP Requested Referral 07/13/2024 07/13/2025 [address] Specialty Diagnoses / Procedures Referred By Jed tompkins Referred To Contact CT IMAGING Diagnoses Iron deficiency anemia due to chronic blood loss Procedures CT ABD/PEL W IVCON CT ABD & PELVIS W/CONTRAST Jorge Cardoso MD [address] [place] [address] [place] [address] Referral ID Status Reason Start Date Expiration Date V isits Requested Visits Authorized [id number] Closed Auto-Generat ed Referral Patient Cleared - Admin/Chairm an/Director advise to proceed or did not respond 05/31/2023 07/30/2023 2 2 Reason Comments Patient Update Reason Comments F/U 3 Month Reason Comments Orders Reason Comments home health calling for verbal order Reason Comments 12-25-2021 Colon EGD Michel Reason Comments Rescheduling Appointment EGD and colonos copy Reason Comments Insurance Authorization Reason Comments missed home health visit Reason Comments Derm Problem Reason Onset Date Comments Refill Request 01/31/2022 Reason Onset Date Comments Refill Request 02/19/2022 Reason Comments Appointment YESIKA Dr Avila Pa tient Reason Comments Colon Michel Reason Comments Home Health Update/Request Reason Comments medication question Reason Comments Patient Question Reason Comments Peripheral Vascular Disease (PVD) Afshin i s former Dr. Avila pt here for yearly follow up Reason Comments ST Order Request Reason Comments Opened In Error Reason Comments Refill Request Reason Comments Follow Up Reason Comments fax orders Reason Comments report missed visit Reason Onset Date Comments Refill Request 06/08/2022 Reason Comments FYI-No Action Needed Reason Comments Order request for IS Reason Comments [facility] verbal order Reason Onset Date Comments Refill Request 08/16/2022 Reason Comments Urology referral Reason Comments insurance not covered Reason Comments Consult Specialty Diagnoses / Procedures Referred By Jed tompkins Referred To Contact Urology Diagnoses Balanitis Procedures CONSULT TO UROLOGY OFFICE/OUTPATIENT [facility] MDM 60-74 MINUTES Jaci Arroyo MD [address] [place] [address] Referral ID Status Reason Start Date Expiration Date V isits Requested Visits Authorized [id number] Closed PCP Requested Referral 08/16/2022 08/16/2023 1 1 Reason Comments Appointment Reason Comments Consult Reason Comments Beveler - Other Having BMP comp leted Reason Comments [facility] requesting records Reason Comments Results Orders Reason Comments Results Reason Comments Request for Mariella [facility] Reason Comments Appointment Appointment 10/15/22 Reason Comments Results Urine culture Orders Reason Comments Established Patient Follow-Up Reason Comments Home Health record Reason Comments [facility] OT Plan of Care Reason Comments [facility] Speech Heart rate out of pa rameter Reason Comments Patient Update Pulse Out of Paramet ers Reason Comments ST plan of care Reason Comments Physical Therapy Plan of Care Reason Comments Patient Update FYI-No Action Needed Reason Comments Patient concern Reason Comments home health calling needs verbal order Reason Comments Follow Up Hospital follow up f or PNE, Hyposemia Reason Onset Date Comments Transition Of Care 11/16/2022 Reason Comments Delay of care Reason Comments PT plan of care Reason Comments plan of care Reason Comments Cough Continues, had pneum onia recently Reason Comments Insurance Authorization Ativan Reason Comments Orders Reason Comments Patient Update Orders Reason Comments Cough Reason Comments Medication Problem back order problem Reason Comments Patient Question Reason Onset Date Comments Refill Request 03/01/2023 Reason Onset Date Comments Refill Request 03/06/2023 Reason Comments Medication Request Patient Question Reason Comments Forms Incontinence supplie s Reason Comments Spirometry Specialty Diagnoses / Procedures Referred By [facility] Referred To Contact [facility] [place] Diagnoses Chronic obstructive pulmonary disease, unspecified COPD type (HCC) Procedures SPIROMETRY WITH DILATOR IF OBSTRUCTED BRNCDILAT RSPSE SPMTRY PRE&POST-BRNCDILAT ADMN Kimo Mcgrath MD [address] [place] [address] [facility] [place] [address] [place] [id number] Referral ID Status Reason Start Date Expiration Date V isits Requested Visits Authorized [id number] Closed Auto-Generate d Referral 01/10/2023 02/09/2024 1 1 Specialty Diagnoses / Procedures [facility] To Contact [facility] [place] Diagnoses Centrilobular emphysema (HCC) Procedures LUNG DIFFUSION CAPACITY (DLCO) DIFFUSING CAPACITY Kimo Mcgrath MD [address] [place] [address] [facility] [place] [address] [place] [address] Referral ID Status Reason Start Date Expiration Date V isits Requested Visits Authorized [id number] Closed Auto-Generate d Referral 03/12/2023 04/10/2024 1 1 Reason Comments New Patient COPD Specialty Diagnoses / Procedures Referred By Contac t Referred To Contact Pulmonary and Critical Care Medicine Diagnoses Shortness of breath COPD with exacerbation (HCC) Procedures CONSULT TO PULM/CRITICAL CARE OFFICE/OUTPATIENT [facility] 60-74 MINUTES Jaci Arroyo MD [address] [place] [address] Referral ID Status Reason Start Date Expiration Date V isits Requested Visits Authorized [id number] Closed PCP Requested Referral 11/17/2022 11/17/2023 1 1 Reason Comments Patient Update Reason Comments Appointment Appointment Reason Comments Consult Iron deficency/ anem ia Specialty Diagnoses / Procedures Referred By Contac t Referred To Contact General Surgery Diagnoses Iron deficiency anemia due to chronic blood loss Procedures CONSULT TO GENERAL SURGERY OFFICE/OUTPATIENT [facility] 60-74 MINUTES Jaci Arroyo MD [address] [place] [address] Referral ID Status Reason Start Date Expiration Date V isits Requested Visits Authorized [id number] Closed PCP Requested Referral 03/28/2023 03/27/2024 1 1 Reason Comments ER F/U [place] [facility] 03/17/23- multiple falls, anemic at 6.5 & +occult stool; D/C to [facility] Reason Comments Patient Update Missed SN Visit Reason Comments Established Patient nail care Reason Comments Follow Up EGD and colonoscopy Reason Comments Forms Specialty Diagnoses / Procedures Referred By Contac t Referred To Contact MR IMAGING Diagnoses Iron deficiency anemia due to chronic blood loss Rectal mass Procedures MRI RECTUM WO/W IVCON MRI PELVIS W/O & W/CONTRAST MATERIAL Jorge Cardoso MD [address] [place] [address] [place] [address] Referral ID Status Reason Start Date Expiration Date V isits Requested Visits Authorized [id number] Closed Auto-Generat ed Referral Patient Cleared - Admin/Chairm an/Director advise to proceed or did not respond 05/31/2023 07/30/2023 1 1 Reason Comments Anal mass Reason Comments Medication Problem Reason Onset Date Comments Refill Request 07/15/2023 Reason Comments Patient Education Reason Onset Date Comments Refill Request 07/22/2023 Reason Comments Home Health orders Reason Comments Medication Update Reason Comments Established Patient 6 month follow up Reason Comments Occupational therapy Plan of Care Reason Comments Results Reason Comments Requesting medication change Reason Comments Established Patient Reason Comments requesting referral Reason Comments Future Appointment Orders Prescription Refills Reason Comments New Patient Evaluation Specialty Diagnoses / Procedures Referred By Jed t Referred To Contact Diagnoses DARON (obstructive sleep apnea) Procedures CONSULT TO SLEEP MEDICINE - ADULT OFFICE/OUTPATIENT [facility] 60 MINUTES Dania Aj Jr., MD [address] [place] [address] Referral ID Status Reason Start Date Expiration Date V isits Requested Visits Authorized [id number] Closed PCP Requested Referral 09/20/2023 09/19/2024 1 1 Reason Onset Date Comments Refill Request 12/31/2023 Reason Comments [facility]axed to [facility] Reason Comments Skin Issue / Penis Reason Comments PA to be done Reason Comments stool concern Reason Comments Colonoscopy Consult Last colonoscopy 2022 Reason Onset Date Comments Refill Request 03/04/2024 Reason Comments New Patient Hx of stroke, occurr ed in 2016, was seen at [facility] for stroke, went in for Quad bypass at [facility] and he had another CVA and 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 carotid artery Reason Onset Date Comments Refill Request 03/31/2024 Reason Comments Question Reason Onset Date Comments Refill Request 04/09/2024 Reason Comments Med Change Request Reason Comments Patient Question colonoscopy prep Specialty Diagnoses / Procedures Referred By Jed t Referred To Contact MR IMAGING Diagnoses History of stroke Left carotid artery occlusion Stenosis of left subclavian artery (HCC) History of obstructive sleep apnea History of atrial fibrillation History of coronary artery bypass, five 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 Spasticity Other symptoms and signs involving the nervous system 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) Occlusion and stenosis of unspecified carotid artery Procedures MRA CAROTID WO IVCON MRA, NECK; W/O CONTRAST Dania Aj Jr., MD [address] [facility] [address] [place] [address] Mr Imaging [place] [address] Referral ID Status Reason Start Date Expiration Date V isits Requested Visits Authorized [id number] Closed Auto-Generate d Referral 03/25/2024 05/24/2024 1 1 Reason Comments Follow Up Reason Comments Future Appointment [place] any Reason Comments F/U 3 Month Reason Onset Date Comments Refill Request 05/28/2024 Reason Comments Medication Clarification Reason Comments Unruptured Aneurysm Specialty Diagnoses / Procedures Referred By Contac t Referred To Contact Neurology / NEUROSURGERY Diagnoses Cerebral Aneurysm New Consult VV R/S Procedures VIDEO SPEC Dania Mendez Jr., MD [address] [place] [address] Gloria Sawyer MD [address] [place] [address] Referral ID Status Reason Start Date Expiration Date Visits Re quested Visits Authorized [id number] Closed 06/01/2024 08/30/2024 1 1 Reason Comments New Patient Spasticity Specialty Diagnoses / Procedures Referred By Contac t Referred To Contact [facility] Diagnoses History of stroke Spasticity Procedures CONSULT TO PHYSICAL MEDICINE AND REHABILITATION OFFICE/OUTPATIENT [facility] 60 MINUTES Michelle Webb PA-C [address] [place] [address] [facility] [place] [address] [place] [address] Referral ID Status Reason Start Date Expiration Date V isits Requested Visits Authorized [id number] Closed PCP Requested Referral Auto-Generated Referral 05/20/2024 05/20/2025 1 1 Reason Comments Insurance Authorization Amiodarone Reason Comments Procedure Reason Comments Medication Request Patient Update Reason Comments Medication Question Reason Comments ER F/U [facility] ER- Saturday walk ing pneumonia, then ER Saturday- seizure (), also needs letter stating that he can not make decisions for himself Reason Comments apt needed Reason Comments Seizures Reason Comments Established Patient [facility] f/u pneumonia, s eizures Reason Comments Information Reason Onset Date Comments Refill Request 07/30/2024 Reason Comments Release Of Medical Records Reason Onset Date Comments Refill Request 08/14/2024 Reason Comments incontinence supplies Reason Onset Date Comments Refill Request 09/04/2024 Reason Onset Date Comments Refill Request 09/14/2024 Reason Comments Musculoskeletal Problem urine bright orange with odor foul smelling bowel movement Reason Comments Beveler - Other Reason Onset Date Comments Refill Request 09/25/2024 Reason Comments Forms [place] Reason Comments Patient Update Hospital F/U Reason Comments COPD 6 month follow up Reason Comments [facility] Reason Comments Epilepsy Follow Up Reason Comments Medication Problem Patient's cut t he Lyrica dose Reason Comments Established Patient Reason Comments Cough Wheezing Reason Comments Follow Up Seizures Reason Comments Forms Roxanne for medical re cord request Reason Comments group [facility] Reason Comments Power Wheel Chair Reason Comments Follow Up 9 month follow up Reason Comments Medication Request Reason Comments Ear Problem Needs ear lavage bef ore hearing test on 03/04/2025 Reason Comments Letter Care Teams (unrecognized sec tion and content) Algorithm Developer Relationship Specialty Start Date End Date Jaci Arroyo MD [address] [place], [place] [address] PCP - General Family Practice 08/08/10 Robin Johansen MD [address] [place] [address] Cardiology 10/03/16 Espinoza Kimbrough MD [address] [facility] [place] [address] Physician Thoracic Surgery 11/29/18 David Avila MD [address] [place] [address] Vascular Surgery 01/06/19 Algorithm Developer Relationship Specialty Start Date End Date Jaci Arroyo MD [address] [place] [address] PCP - General Family Practice 08/08/10 Robin Johansen MD [address] [place] [address] Cardiology 10/03/16 Espinoza Kimbrough MD [address] [place] [address] [place] [address] Physician Thoracic Surgery 11/29/18 David Avila MD [address] [place] [address] Vascular Surgery 01/06/19 Algorithm Developer Relationship Specialty Start Date End Date Jaci Arroyo MD [address] [place] [address] PCP - General Family Practice 08/08/10 Robin Johansen MD [address] [place] [address] Cardiology 10/03/16 Espinoza Kimbrough MD [address] [place] [address] [place] [address] Physician Thoracic Surgery 11/29/18 David Avila MD [address] [place] [address] Vascular Surgery 01/06/19 Algorithm Developer Relationship Specialty Start Date End Date Jaci Arroyo MD [address] [place] [address] PCP - General Family Practice 08/08/10 Robin Johansen MD [address] [place] [address] Cardiology 10/03/16 Espinoza Kimbrough MD [address] [place] [address] [place] [address] Physician Thoracic Surgery 11/29/18 David Avila MD [address] [place] [address] Vascular Surgery 01/06/19 Algorithm Developer Relationship Specialty Start Date End Date Jaci Arroyo MD [address] [place] [address] PCP - General Family Practice 08/08/10 Robin Johansen MD [address] [place] [address] Cardiology 10/03/16 Espinoza Kimbrough MD [address] [place] [address] [place] [address] Physician Thoracic Surgery 11/29/18 David Avila MD [address] [place] [address] Vascular Surgery 01/06/19 Algorithm Developer Relationship Specialty Start Date End Date Jaci Arroyo MD [address] [place] [address] PCP - General Family Practice 08/08/10 Robin Johansen MD [address] [place] [address] Cardiology 10/03/16 Espinoza Kimbrough MD [address] [place] [address] [place] [address] Physician Thoracic Surgery 11/29/18 David Avila MD [address] [place] [address] Vascular Surgery 01/06/19 Algorithm Developer Relationship Specialty Start Date End Date Jaci Arroyo MD [address] [place] [address] PCP - General Family Practice 08/08/10 Robin Johansen MD [address] [place] [address] Cardiology 10/03/16 Espinoza Kimbrough MD [address] [place] [address] [place] [address] Physician Thoracic Surgery 11/29/18 David Avila MD [address] [place] [address] Vascular Surgery 01/06/19 Algorithm Developer Relationship Specialty Start Date End Date Jaci Arroyo MD [address] [place] [address] PCP - General Family Practice 08/08/10 Robin Johansen MD [address] [place] [address] Cardiology 10/03/16 Espinoza Kimbrough MD [address] [place] [address] [place] [address] Physician Thoracic Surgery 11/29/18 David Avila MD [address] [place] [address] Vascular Surgery 01/06/19 Algorithm Developer Relationship Specialty Start Date End Date Jaci Arroyo MD [address] [place] [address] PCP - General Family Practice 08/08/10 Robin Johansen MD [address] [place] [address] Cardiology 10/03/16 Espinoza Kimbrough MD [address] [place] [address] [place] [address] Physician Thoracic Surgery 11/29/18 David Avila MD [address] [place] [address] Vascular Surgery 01/06/19 Algorithm Developer Relationship Specialty Start Date End Date Jaci Arroyo MD [address] [place] [address] PCP - General Family Practice 08/08/10 Robin Johansen MD [address] [place] [address] Cardiology 10/03/16 Espinoza Kimbrough MD [address] [place] [address] [place] [address] Physician Thoracic Surgery 11/29/18 David Avila MD [address] [place] [address] Vascular Surgery 01/06/19 Algorithm Developer Relationship Specialty Start Date End Date Jaci Arroyo MD [address] [place] [address] PCP - General Family Practice 08/08/10 Robin Johansen MD [address] [place] [address] Cardiology 10/03/16 Espinoza Kimbrough MD [address] [place] [address] [place] [address] Physician Thoracic Surgery 11/29/18 David Avila MD [address] [place] [address] Vascular Surgery 01/06/19 Algorithm Developer Relationship Specialty Start Date End Date Jaci Arroyo MD [address] [place] [address] PCP - General Family Medicine 08/08/10 Robin Johansen MD [address] [place] [address] Cardiology 10/03/16 Espinoza Kimbrough MD [address] [place] [address] [place] [address] Physician Thoracic Surgery 11/29/18 David Avila MD [address] [facility] [address] Vascular Surgery 01/06/19 Algorithm Developer Relationship Specialty Start Date End Date Jaci Arroyo MD [address] [place] [address] PCP - General Family Medicine 08/08/10 Robin Johansen MD [address] [place] [address] Cardiology 10/03/16 Espinoza Kimbrough MD [address] [place] [address] [place] [address] Physician Thoracic Surgery 11/29/18 David Avila MD [address] [place] [address] Vascular Surgery 01/06/19 Algorithm Developer Relationship Specialty Start Date End Date Jaci Arroyo MD [address] [place] [address] PCP - General Family Medicine 08/08/10 Robin Johansen MD [address] [place] [address] Cardiology 10/03/16 Espinoza Kimbrough MD [address] [place] [address] [place] [address] Physician Thoracic Surgery 11/29/18 David Avila MD [address] [facility] [place] [address] Vascular Surgery 01/06/19 Algorithm Developer Relationship Specialty Start Date End Date Jaci Arroyo MD [address] [place] [address] PCP - General Family Medicine 08/08/10 Robin Johansen MD [address] [place] [address] Cardiology 10/03/16 Espinoza Kimbrough MD [address] [place] [address] [place] [address] Physician Thoracic Surgery 11/29/18 David Avila MD [address] [place] [address] Vascular Surgery 01/06/19 Algorithm Developer Relationship Specialty Start Date End Date Jaci Arroyo MD [address] [place] [address] PCP - General Family Medicine 08/08/10 Robin Johansen MD [address] [place] [address] Cardiology 10/03/16 Espinoza Kimbrough MD [address] [place] [address] [place] [address] Physician Thoracic Surgery 11/29/18 David Avila MD [address] [place] [address] Vascular Surgery 01/06/19 Algorithm Developer Relationship Specialty Start Date End Date Jaci Arroyo MD [address] [place] [address] PCP - General Family Medicine 08/08/10 Robin Johansen MD [address] [place] [address] Cardiology 10/03/16 Espinoza Kimbrough MD [address] [place] [address] [place] [address] Physician Thoracic Surgery 11/29/18 David Avila MD [address] [place] [address] Vascular Surgery 01/06/19 Algorithm Developer Relationship Specialty Start Date End Date Jaci Arroyo MD [address] [place] [address] PCP - General Family Medicine 08/08/10 Robin Johansen MD [address] [place] [address] Cardiology 10/03/16 Espinoza Kimbrough MD [address] [place] [address] [place] [address] Physician Thoracic Surgery 11/29/18 David Avila MD [address] [place] [address] Vascular Surgery 01/06/19 Algorithm Developer Relationship Specialty Start Date End Date Jaci Arroyo MD [address] [place] [address] PCP - General Family Medicine 08/08/10 Robin Johansen MD [address] [place] [address] Cardiology 10/03/16 Espinoza Kimbrough MD [address] [place] [address] [place] [address] Physician Thoracic Surgery 11/29/18 David Avila MD [address] [place] [address] Vascular Surgery 01/06/19 Algorithm Developer Relationship Specialty Start Date End Date Jaci Arroyo MD [address] [place] [address] PCP - General Family Medicine 08/08/10 Robin Johansen MD [address] [place] [address] Cardiology 10/03/16 Espinoza Kimbrough MD [address] [place] [address] [place] [address] Physician Thoracic Surgery 11/29/18 David Avila MD [address] [place] [address] Vascular Surgery 01/06/19 Algorithm Developer Relationship Specialty Start Date End Date Jaci Arroyo MD [address] [place] [address] PCP - General Family Medicine 08/08/10 Robin Johansen MD [address] [place] [address] Cardiology 10/03/16 Espinoza Kimbrough MD [address] [place] [address] [place] [address] Physician Thoracic Surgery 11/29/18 David Avila MD [address] [place] [address] Vascular Surgery 01/06/19 Algorithm Developer Relationship Specialty Start Date End Date Jaci Arroyo MD [address] [place] [address] PCP - General Family Medicine 08/08/10 Robin Johansen MD [address] [place] [address] Cardiology 10/03/16 Espinoza Kimbrough MD [address] [place] [address] [place] [address] Physician Thoracic Surgery 11/29/18 David Avila MD [address] [place] [address] Vascular Surgery 01/06/19 Algorithm Developer Relationship Specialty Start Date End Date Jaci Arroyo MD [address] [place] [address] PCP - General Family Medicine 08/08/10 Robin Johansen MD [address] [place] [address] Cardiology 10/03/16 Espinoza Kimbrough MD [address] [place] [address] [place] [address] Physician Thoracic Surgery 11/29/18 David Avila MD [address] [place] [address] Vascular Surgery 01/06/19 Algorithm Developer Relationship Specialty Start Date End Date Jaci Arroyo MD [address] [place] [address] PCP - General Family Medicine 08/08/10 Robin Johansen MD [address] [place] [address] Cardiology 10/03/16 Espinoza Kimbrough MD [address] [place] [address] [place] [address] Physician Thoracic Surgery 11/29/18 David Avila MD [address] [facility] [place] [address] Vascular Surgery 01/06/19 Algorithm Developer Relationship Specialty Start Date End Date Jaci Arroyo MD [address] [place] [address] PCP - General Family Medicine 08/08/10 Robin Johansen MD [address] [place] [address] Cardiology 10/03/16 Espinoza Kimbrough MD [address] [place] [address] [place] [address] Physician Thoracic Surgery 11/29/18 David Avila MD [address] [place] [address] Vascular Surgery 01/06/19 Algorithm Developer Relationship Specialty Start Date End Date Jaci Arroyo MD [address] [place] [address] PCP - General Family Medicine 08/08/10 Robin Johansen MD [address] [place] [address] Cardiology 10/03/16 Espinoza Kimbrough MD [address] [place] [address] [place] [address] Physician Thoracic Surgery 11/29/18 David Avila MD [address] [place] [address] Vascular Surgery 01/06/19 Algorithm Developer Relationship Specialty Start Date End Date Jaci Arroyo MD [address] [place] [address] PCP - General Family Medicine 08/08/10 Robin Johansen MD [address] [place] [address] Cardiology 10/03/16 Espinoza Kimbrough MD [address] [place] [address] [place] [address] Physician Thoracic Surgery 11/29/18 David Avila MD [address] [place] [address] Vascular Surgery 01/06/19 Algorithm Developer Relationship Specialty Start Date End Date Jaci Arroyo MD [address] [place] [address] PCP - General Family Medicine 08/08/10 Robin Johansen MD [address] [place] [address] Cardiology 10/03/16 Espinoza Kimbrough MD [address] [place] [address] [place] [address] Physician Thoracic Surgery 11/29/18 David Avila MD [address] [place] [address] Vascular Surgery 01/06/19 Algorithm Developer Relationship Specialty Start Date End Date Jaci Arroyo MD [address] [place] [address] PCP - General Family Medicine 08/08/10 Robin Johansen MD [address] [place] [address] Cardiology 10/03/16 Espinoza Kimbrough MD [address] [place] [address] [place] [address] Physician Thoracic Surgery 11/29/18 David Avila MD [address] [place] [address] Vascular Surgery 01/06/19 Algorithm Developer Relationship Specialty Start Date End Date Jaci Arroyo MD [address] [place] [address] PCP - General Family Medicine 08/08/10 Robin Johansen MD [address] [place] [address] Cardiology 10/03/16 Espinoza Kimbrough MD [address] [place] [address] [place] [address] Physician Thoracic Surgery 11/29/18 David Avila MD [address] [place] [address] Vascular Surgery 01/06/19 Algorithm Developer Relationship Specialty Start Date End Date Jaci Arroyo MD [address] [place] [address] PCP - General Family Medicine 08/08/10 Robin Johansen MD [address] [place] [address] Cardiology 10/03/16 Espinoza Kimbrough MD [address] [place] [address] [place] [address] Physician Thoracic Surgery 11/29/18 David Avila MD [address] [place] [address] Vascular Surgery 01/06/19 Algorithm Developer Relationship Specialty Start Date End Date Jaci Arroyo MD [address] [place] [address] PCP - General Family Medicine 08/08/10 Robin Johansen MD [address] [place] [address] Cardiology 10/03/16 Espinoza Kimbrough MD [address] [place] [address] [place] [address] Physician Thoracic Surgery 11/29/18 David Avila MD [address] [facility] [place] [address] Vascular Surgery 01/06/19 Team Status: Active Member Role Status Dates Dr. Jaci Arroyo MD Family Provider Active Dr. Jaci Arroyo MD Primary Care Provider Active Team Status: Active Member Role Status Dates Dr. Jaci Arroyo MD Primary Care Provider Active Dr. Carlton Lin DO Emergency Provider Active Dr. Felecia Burns MD Admit Provider, At tending Provider, Other Provider Active Team Status: Inactive Member Role Status Dates Dr. Jaci Arroyo MD Primary Care Provider, Referr ing Provider Active Soraya Pate FOIL WRAPPER, FOIL WRAPPER-C Attending Provider Active Team Status: Inactive Member Role Status Dates Dr. Jaci Arroyo MD Primary Care Provider Active Kassandra Moise FOIL WRAPPER, FOIL WRAPPER-C Attending Provider Active Team Status: Inactive Member Role Status Dates Dr. Jaci Arroyo MD Primary Care Provider Active Dr. Matt Ashraf MD Attending Provider Active Team Status: Inactive Member Role Status Dates Dr. Jaci Arroyo MD Primary Care Provider Active Dr. Carlton Lin DO Emergency Provider Active Dr. Felecia Burns MD Admit Provider, Attending Provid er Active Team Status: Active Member Role Status Dates Dr. Jaci Arroyo MD Primary Care Provider Active Dr. Carlton Lin DO Emergency Provider Active Dr. Arti Escalante MD Admit Provider, Attending Prov ider Active Team Status: Active Member Role Status Dates Dr. Jaci Arroyo MD Primary Care Provider Active Dr. Carlton Lin DO Emergency Provider Active Dr. Arti Escalante MD Admit Provider, Other Provider Active Dr. Felecia Burns MD Attending Provider, Other Provid er Active Team Status: Active Member Role Status Dates Dr. Jaci Arroyo MD Primary Care Provider Active Dr. Aleyda Bland MD Attending Provider Active Dr. Felecia Burns MD Referring Provider Active Team Status: Inactive Member Role Status Dates Dr. Jaci Arroyo MD Primary Care Provider Active Dr. Carlton Lin DO Emergency Provider Active Dr. Arti Escalante MD Admit Provider, Other Provider Active Dr. Felecia Burns MD Attending Provider Active Algorithm Developer Relationship Specialty Start Date End Date Jaci Arroyo MD [address] [place] [address] PCP - General Family Medicine 08/08/10 Robin Johansen MD [address] [place] [id number] Cardiology 10/03/16 Espinoza Kimbrough MD [address] [place] [address] [place] [address] Physician Thoracic Surgery 11/29/18 David Avila MD [address] [place] [address] Vascular Surgery 01/06/19 Algorithm Developer Relationship Specialty Start Date End Date Jaci Arroyo MD [address] [place] [address] PCP - General Family Medicine 08/08/10 Robin Johansen MD [address] [place] [address] Cardiology 10/03/16 Espinoza Kimbrough MD [address] [place] [address] [place] [address] Physician Thoracic Surgery 11/29/18 David Avila MD [address] [place] [address] Vascular Surgery 01/06/19 Algorithm Developer Relationship Specialty Start Date End Date Jaci Arroyo MD [address] [place] [address] PCP - General Family Medicine 08/08/10 Robin Johansen MD [address] [place] [address] Cardiology 10/03/16 Espinoza Kimbrough MD [address] [place] [address] [place] [address] Physician Thoracic Surgery 11/29/18 David Avila MD [address] [place] [address] Vascular Surgery 01/06/19 Algorithm Developer Relationship Specialty Start Date End Date Jaci Arroyo MD [address] [place] [address] PCP - General Family Medicine 08/08/10 Robin Johansen MD [address] [place] [address] Cardiology 10/03/16 Espinoza Kimbrough MD [address] [place] [address] [place] [address] Physician Thoracic Surgery 11/29/18 David Avila MD [address] [place] [address] Vascular Surgery 01/06/19 Algorithm Developer Relationship Specialty Start Date End Date Jaci Arroyo MD [address] [place] [address] PCP - General Family Medicine 08/08/10 Robin Johansen MD [address] [place] [address] Cardiology 10/03/16 Espinoza Kimbrough MD [address] [place] [address] [place] [address] Physician Thoracic Surgery 11/29/18 David Avila MD [address] [place] [address] Vascular Surgery 01/06/19 Algorithm Developer Relationship Specialty Start Date End Date Jaci Arroyo MD [address] [place] [address] PCP - General Family Medicine 08/08/10 Robin Johansen MD [address] [place] [address] Cardiology 10/03/16 Espinoza Kimbrough MD [address] [place] [address] [place] [address] Physician Thoracic Surgery 11/29/18 David Avila MD [address] [place] [address] Vascular Surgery 01/06/19 Algorithm Developer Relationship Specialty Start Date End Date Jaci Arroyo MD [address] [place] [address] PCP - General Family Medicine 08/08/10 Robin Johansen MD [address] [place] [address] Cardiology 10/03/16 Espinoza Kimbrough MD [address] [place] [address] [place] [address] Physician Thoracic Surgery 11/29/18 David Avila MD [address] [place] [address] Vascular Surgery 01/06/19 Algorithm Developer Relationship Specialty Start Date End Date Jaci Arroyo MD [address] [place] [address] PCP - General Family Medicine 08/08/10 Robin Johansen MD [address] [place] [address] Cardiology 10/03/16 Espinoza Kimbrough MD [address] [place] [address] [place] [address] Physician Thoracic Surgery 11/29/18 David Avila MD [address] [place] [address] Vascular Surgery 01/06/19 Algorithm Developer Relationship Specialty Start Date End Date Jaci Arroyo MD [address] [place] [address] PCP - General Family Medicine 08/08/10 Robin Johansen MD [address] [place] [address] Cardiology 10/03/16 Espinoza Kimbrough MD [address] [place] [address] [place] [address] Physician Thoracic Surgery 11/29/18 David Avila MD [address] [place] [address] Vascular Surgery 01/06/19 Algorithm Developer Relationship Specialty Start Date End Date Jaci Arroyo MD [address] [place] [address] PCP - General Family Medicine 08/08/10 Robin Johansen MD [address] [place] [address] Cardiology 10/03/16 Espinoza Kimbrough MD [address] [place] [address] [place] [address] Physician Thoracic Surgery 11/29/18 David Avila MD [address] [place] [address] Vascular Surgery 01/06/19 Algorithm Developer Relationship Specialty Start Date End Date Jaci Arroyo MD [address] [place] [address] PCP - General Family Medicine 08/08/10 Robin Johansen MD [address] [place] [address] Cardiology 10/03/16 Espinoza Kimbrough MD [address] [place] [address] [place] [address] Physician Thoracic Surgery 11/29/18 David Avila MD [address] [place] [address] Vascular Surgery 01/06/19 Algorithm Developer Relationship Specialty Start Date End Date Jaci Arroyo MD [address] [place] [address] PCP - General Family Medicine 08/08/10 Robin Johansen MD [address] [place] [address] Cardiology 10/03/16 Espinoza Kimbrough MD [address] [place] [address] [place] [address] Physician Thoracic Surgery 11/29/18 David Avila MD [address] [place] [address] Vascular Surgery 01/06/19 Algorithm Developer Relationship Specialty Start Date End Date Jaci Arroyo MD [address] [place] [address] PCP - General Family Medicine 08/08/10 Robin Johansen MD [address] [place] [address] Cardiology 10/03/16 Espinoza Kimbrough MD [address] [place] [address] [place] [address] Physician Thoracic Surgery 11/29/18 David Avila MD [address] [facility] [place] [address] Vascular Surgery 01/06/19 Algorithm Developer Relationship Specialty Start Date End Date Jaci Arroyo MD [address] [place] [address] PCP - General Family Medicine 08/08/10 Robin Johansen MD [address] [place] [address] Cardiology 10/03/16 Espinoza Kimbrough MD [address] [place] [address] [place] [address] Physician Thoracic Surgery 11/29/18 David Avila MD [address] [place] [address] Vascular Surgery 01/06/19 Algorithm Developer Relationship Specialty Start Date End Date Jaci Arroyo MD [address] [place] [address] PCP - General Family Medicine 08/08/10 Robin Johansen MD [address] [place] [address] Cardiology 10/03/16 Espinoza Kimbrough MD [address] [place] [address] [place] [address] Physician Thoracic Surgery 11/29/18 David Avila MD [address] [facility] [place] [address] Vascular Surgery 01/06/19 Algorithm Developer Relationship Specialty Start Date End Date Jaci Arroyo MD [address] [place] [address] PCP - General Family Medicine 08/08/10 Robin Johansen MD [address] [place] [address] Cardiology 10/03/16 Espinoza Kimbrough MD [address] [place] [address] [place] [address] Physician Thoracic Surgery 11/29/18 David Avila MD [address] [place] [address] Vascular Surgery 01/06/19 Algorithm Developer Relationship Specialty Start Date End Date Jaci Arroyo MD [address] [place] [address] PCP - General Family Medicine 08/08/10 Robin Johansen MD [address] [place] [address] Cardiology 10/03/16 Espinoza Kimbrough MD [address] [place] [address] [place] [address] Physician Thoracic Surgery 11/29/18 David Avila MD [address] [place] [address] Vascular Surgery 01/06/19 Algorithm Developer Relationship Specialty Start Date End Date Jaci Arroyo MD [address] [place] [address] PCP - General Family Medicine 08/08/10 Robin Johansen MD [address] [place] [address] Cardiology 10/03/16 Espinoza Kimbrough MD [address] [place] [address] [place] [address] Physician Thoracic Surgery 11/29/18 David Avila MD [address] [place] [address] Vascular Surgery 01/06/19 Algorithm Developer Relationship Specialty Start Date End Date Jaci Arroyo MD [address] [place] [address] PCP - General Family Medicine 08/08/10 Robin Johansen MD [address] [place] [address] Cardiology 10/03/16 Espinoza Kimbrough MD [address] [place] [address] [place] [address] Physician Thoracic Surgery 11/29/18 David Avila MD [address] [place] [address] Vascular Surgery 01/06/19 Algorithm Developer Relationship Specialty Start Date End Date Jaci Arroyo MD [address] [place] [address] PCP - General Family Medicine 08/08/10 Robin Johansen MD [address] [place] [address] Cardiology 10/03/16 Espinoza Kimbrough MD [address] [place] [address] [place] [address] Physician Thoracic Surgery 11/29/18 David Avila MD [address] [place] [address] Vascular Surgery 01/06/19 Algorithm Developer Relationship Specialty Start Date End Date Jaci Arroyo MD [address] [place] [address] PCP - General Family Medicine 08/08/10 Robin Johansen MD [address] [place] [address] Cardiology 10/03/16 Espinoza Kimbrough MD [address] [place] [address] [place] [address] Physician Thoracic Surgery 11/29/18 David Avila MD [address] [place] [address] Vascular Surgery 01/06/19 Algorithm Developer Relationship Specialty Start Date End Date Jaci Arroyo MD [address] [place] [address] PCP - General Family Medicine 08/08/10 Robin Johansen MD [address] [place] [address] Cardiology 10/03/16 Espinoza Kimbrough MD [address] [place] [address] [place] [address] Physician Thoracic Surgery 11/29/18 David Avila MD [address] [place] [address] Vascular Surgery 01/06/19 Team Status: Inactive Member Role Status Dates Dr. Jaci Arroyo MD Primary Care Pr ovider, Attending Provider, Referring Provider Active Team Status: Active Member Role Status Dates Dr. Jaci Arroyo MD Primary Care Provider Active Matt FENTON MD Attending Provider Active Algorithm Developer Relationship Specialty Start Date End Date Jaci Arroyo MD [address] [place] [address] PCP - General Family Medicine 08/08/10 Robin Johansen MD [address] [place] [address] Cardiology 10/03/16 Espinoza Kimbrough MD [address] [place] [address] [place] [address] Physician Thoracic Surgery 11/29/18 David Avila MD [address] [place] [address] Vascular Surgery 01/06/19 Algorithm Developer Relationship Specialty Start Date End Date Jaci Arroyo MD [address] [place] [address] PCP - General Family Medicine 08/08/10 Robin Johansen MD [address] [place] [address] Cardiology 10/03/16 Espinoza Kimbrough MD [address] [place] [address] [place] [address] Physician Thoracic Surgery 11/29/18 David Avila MD [address] [place] [address] Vascular Surgery 01/06/19 Algorithm Developer Relationship Specialty Start Date End Date Jaci Arroyo MD [address] [place] [address] PCP - General Family Medicine 08/08/10 Robin Johansen MD [address] [place] [address] Cardiology 10/03/16 Espinoza Kimbrough MD [address] [place] [address] [place] [address] Physician Thoracic Surgery 11/29/18 David Avila MD [address] [place] [address] Vascular Surgery 01/06/19 Algorithm Developer Relationship Specialty Start Date End Date Jaci Arroyo MD [address] [place] [address] PCP - General Family Medicine 08/08/10 Robin Johansen MD [address] [place] [address] Cardiology 10/03/16 Espinoza Kimbrough MD [address] [place] [address] [place] [address] Physician Thoracic Surgery 11/29/18 David Avila MD [address] [place] [address] Vascular Surgery 01/06/19 Algorithm Developer Relationship Specialty Start Date End Date Jaci Arroyo MD [address] [place] [address] PCP - General Family Medicine 08/08/10 Robin Johansen MD [address] [place] [address] Cardiology 10/03/16 Espinoza Kimbrough MD [address] [place] [address] [place] [address] Physician Thoracic Surgery 11/29/18 David Avila MD [address] [place] [address] Vascular Surgery 01/06/19 Team Status: Inactive Member Role Status Dates Dr. Jaci Arroyo MD Primary Care Provider Active Dr. Doug Mcgrath DO Attending Provider Active Algorithm Developer Relationship Specialty Start Date End Date Jaci Arroyo MD [address] [place] [address] PCP - General Family Medicine 08/08/10 Robin Johansen MD [address] [place] [address] Cardiology 10/03/16 Espinoza Kimbrough MD [address] [place] [address] [place] [address] Physician Thoracic Surgery 11/29/18 David Avila MD [address] [place] [address] Vascular Surgery 01/06/19 Algorithm Developer Relationship Specialty Start Date End Date Jaci Arroyo MD [address] [place] [address] PCP - General Family Medicine 08/08/10 Robin Johansen MD [address] [place] [address] Cardiology 10/03/16 Espinoza Kimbrough MD [address] [place] [address] [place] [address] Physician Thoracic Surgery 11/29/18 David Avila MD [address] [place] [address] Vascular Surgery 01/06/19 Algorithm Developer Relationship Specialty Start Date End Date Jaci Arroyo MD [address] [facility] [place] [address] PCP - General Family Medicine 08/08/10 Robin Johansen MD [address] [place] [address] Cardiology 10/03/16 Espinoza Kimbrough MD [address] [place] [address] [place] [address] Physician Thoracic Surgery 11/29/18 David Avila MD [address] [facility] [place] [address] Vascular Surgery 01/06/19 Algorithm Developer Relationship Specialty Start Date End Date Jaci Arroyo MD [address] [place] [address] PCP - General Family Medicine 08/08/10 Robin Johansen MD [address] [place] [address] Cardiology 10/03/16 Espinoza Kimbrough MD [address] [place] [address] [place] [address] Physician Thoracic Surgery 11/29/18 David Avila MD [address] [facility] [place] [address] Vascular Surgery 01/06/19 Algorithm Developer Relationship Specialty Start Date End Date Jaci Arroyo MD [address] [place] [address] PCP - General Family Medicine 08/08/10 Robin Johansen MD [address] [place] [address] Cardiology 10/03/16 Espinoza Kimbrough MD [address] [place] [address] [place] [address] Physician Thoracic Surgery 11/29/18 David Avila MD [address] [place] [address] Vascular Surgery 01/06/19 Algorithm Developer Relationship Specialty Start Date End Date Jaci Arroyo MD [address] [place] [address] PCP - General Family Medicine 08/08/10 Robin Johansen MD [address] [place] [address] Cardiology 10/03/16 Espinoza Kimbrough MD [address] [place] [address] [place] [address] Physician Thoracic Surgery 11/29/18 David Avila MD [address] [place] [address] Vascular Surgery 01/06/19 Algorithm Developer Relationship Specialty Start Date End Date Jaci Arroyo MD [address] [place] [address] PCP - General Family Medicine 08/08/10 Robin Johansen MD [address] [place] [address] Cardiology 10/03/16 Espinoza Kimbrough MD [address] [place] [address] [place] [address] Physician Thoracic Surgery 11/29/18 David Avila MD [address] [place] [address] Vascular Surgery 01/06/19 Algorithm Developer Relationship Specialty Start Date End Date Jaci Arroyo MD [address] [place] [address] PCP - General Family Medicine 08/08/10 Robin Johansen MD [address] [place] [address] Cardiology 10/03/16 Espinoza Kimbrough MD [address] [place] [address] [place] [address] Physician Thoracic Surgery 11/29/18 David Avila MD [address] [place] [address] Vascular Surgery 01/06/19 Algorithm Developer Relationship Specialty Start Date End Date Jaci Arroyo MD [address] [place] [address] PCP - General Family Medicine 08/08/10 Robin Johansen MD [address] [place] [address] Cardiology 10/03/16 Espinoza Kimbrough MD [address] [place] [address] [place] [address] Physician Thoracic Surgery 11/29/18 David Avila MD [address] [place] [address] Vascular Surgery 01/06/19 Algorithm Developer Relationship Specialty Start Date End Date Jaci Arroyo MD [address] [place] [address] PCP - General Family Medicine 08/08/10 Robin Johansen MD [address] [place] [address] Cardiology 10/03/16 Espinoza Kimbrough MD [address] [place] [address] [place] [address] Physician Thoracic Surgery 11/29/18 David Avila MD [address] [facility] [place] [address] Vascular Surgery 01/06/19 Algorithm Developer Relationship Specialty Start Date End Date Jaci Arroyo MD [address] [place] [address] PCP - General Family Medicine 08/08/10 Robin Johansen MD [address] [place] [address] Cardiology 10/03/16 Espinoza Kimbrough MD [address] [place] [address] [place] [address] Physician Thoracic Surgery 11/29/18 David Avila MD [address] [place] [address] Vascular Surgery 01/06/19 Algorithm Developer Relationship Specialty Start Date End Date Jaci Arroyo MD [address] [place] [address] PCP - General Family Medicine 08/08/10 Robin Johansen MD [address] [place] [address] Cardiology 10/03/16 Espinoza Kimbrough MD [address] [place] [address] [place] [address] Physician Thoracic Surgery 11/29/18 David Avila MD [address] [address] Vascular Surgery 01/06/19 Algorithm Developer Relationship Specialty Start Date End Date Jaci Arroyo MD [address] [place] [address] PCP - General Family Medicine 08/08/10 Robin oJhansen MD [address] [place] [address] Cardiology 10/03/16 Espinoza Kimbrough MD [address] [place] [address] [place] [address] Physician Thoracic Surgery 11/29/18 David Avila MD [address] [place] [address] Vascular Surgery 01/06/19 Algorithm Developer Relationship Specialty Start Date End Date Jaci Arroyo MD [address] [facility] [place] [address] PCP - General Family Medicine 08/08/10 Robin Johansen MD [address] [place] [address] Cardiology 10/03/16 Espinoza Kimbrough MD [address] [place] [address] [place] [address] Physician Thoracic Surgery 11/29/18 David Avila MD [address] [place] [address] Vascular Surgery 01/06/19 Algorithm Developer Relationship Specialty Start Date End Date Jaci Arroyo MD [address] [place] [address] PCP - General Family Medicine 08/08/10 Robin Johansen MD [address] [place] [address] Cardiology 10/03/16 Espinoza Kimbrough MD [address] [place] [address] [place] [address] Physician Thoracic Surgery 11/29/18 David Avila MD [address] [place] [address] Vascular Surgery 01/06/19 Algorithm Developer Relationship Specialty Start Date End Date Jaci Arroyo MD [address] [place] [address] PCP - General Family Medicine 08/08/10 Robin Johansen MD [address] [place] [address] Cardiology 10/03/16 Espinoza Kimbrough MD [address] [place] [address] [place] [address] Physician Thoracic Surgery 11/29/18 David Avila MD [address] [place] [address] Vascular Surgery 01/06/19 Algorithm Developer Relationship Specialty Start Date End Date Jaci Arroyo MD [address] [place] [address] PCP - General Family Medicine 08/08/10 Robin Johansen MD [address] [place] [address] Cardiology 10/03/16 Espinoza Kimbrough MD [address] [place] [address] [place] [address] Physician Thoracic Surgery 11/29/18 David Avila MD [address] [place] [address] Vascular Surgery 01/06/19 Team Status: Inactive Member Role Status Dates Dr. Jaci Arroyo MD Primary Care Provider, Referr ing Provider Active Davin Kim MD Attending Provider Active Team Status: Active Member Role Status Dates Dr. Jaci Arroyo MD Primary Care Provider Active Davin Kim MD Attending Provider, Referring Provider, Other Provider Active Team Status: Active Member Role Status Dates Dr. Jaci Arroyo MD Primary Care Provider Active Davin Kim MD Admit Provider, Refe rring Provider, Other Provider Active Dr. Felecia Burns MD Attending Provider, Other Provid er Active Team Status: Active Member Role Status Dates Dr. Jaci Arroyo MD Primary Care Provider Active Davin Kim MD Admit Provider, Atte nding Provider, Referring Provider, Other Provider Active Dr. Felecia Burns MD Other Provider Active Dr. Dov Marin DO Other Provider Active Team Status: Active Member Role Status Dates Dr. Jaci Arroyo MD Primary Care Provider Active Davin Kim MD Admit Provider, Refe rring Provider, Other Provider Active Dr. Felecia Burns MD Other Provider Active Dr. Dov Marin DO Attending Provider, Other Provid er Active Team Status: Inactive Member Role Status Dates Dr. Jaci Arroyo MD Primary Care Provider Active Davin Kim MD Admit Provider, Atte nding Provider, Referring Provider, Other Provider Active Dr. Felecia Burns MD Other Provider Active Dr. Dov Marin DO Other Provider Active Algorithm Developer Relationship Specialty Start Date End Date Jaci Arroyo MD [address] [place] [address] PCP - General Family Medicine 08/08/10 Robin Johansen MD [address] [place] [address] Cardiology 10/03/16 Espinoza Kimbrough MD [address] [place] [address] [place] [address] Physician Thoracic Surgery 11/29/18 David Avila MD [address] [place] [address] Vascular Surgery 01/06/19 Algorithm Developer Relationship Specialty Start Date End Date Jaci Arroyo MD [address] [place] [address] PCP - General Family Medicine 08/08/10 Robin Johansen MD [address] [place] [address] Cardiology 10/03/16 Espinoza Kimbrough MD [address] [place] [address] [place] [address] Physician Thoracic Surgery 11/29/18 David Avila MD [address] [place] [address] Vascular Surgery 01/06/19 Algorithm Developer Relationship Specialty Start Date End Date Jaci Arroyo MD [address] [place] [address] PCP - General Family Medicine 08/08/10 Robin Johansen MD [address] [place] [address] Cardiology 10/03/16 Espinoza Kimbrough MD [address] [place] [address] [place] [address] Physician Thoracic Surgery 11/29/18 David Avila MD [address] [place] [address] Vascular Surgery 01/06/19 Algorithm Developer Relationship Specialty Start Date End Date Jaci Arroyo MD [address] [place] [address] PCP - General Family Medicine 08/08/10 Robin Johansen MD [address] [place] [address] Cardiology 10/03/16 Espinoza Kimbrough MD [address] [place] [address] [place] [address] Physician Thoracic Surgery 11/29/18 David Avila MD [address] [place] [address] Vascular Surgery 01/06/19 Algorithm Developer Relationship Specialty Start Date End Date Jaci Arroyo MD [address] [place], [place] [address] PCP - General Family Medicine 08/08/10 Robin Johansen MD [address] [place] [address] Cardiology 10/03/16 Espinoza Kimbrough MD [address] [place] [address] Physician Thoracic Surgery 11/29/18 David Avila MD [address] [place] [address] Vascular Surgery 01/06/19 Team Status: Active Member Role Status Dates Dr. Jaci Arroyo MD Primary Care Provider Active Davin Kim MD Admit Provider, Other Provider Act jhonatan Dr. Felecia Burns MD Other Provider Active Dr. Dov Marin DO Attending Provider, Other Provid er Active Team Status: Active Member Role Status Dates Dr. Jaci Arroyo MD Primary Care Provider Active Dr. Aleyda Bland MD Attending Provider Active Davin Kim MD Referring Provider Active Team Status: Inactive Member Role Status Dates Dr. Jaci Arroyo MD Primary Care Provider Active Dr. Lion Randhawa MD Attending Provider Active Team Status: Active Member Role Status Dates Dr. Jaci Arroyo MD Primary Care Provider Active Matt FENTON MD Attending Provider, Referring Provider Active Team Status: Inactive Member Role Status Dates Dr. Jaci Arroyo MD Primary Care Provider Active Matt FENTON MD Attending Provider Active Algorithm Developer Relationship Specialty Start Date End Date Jaci Arroyo MD [address] [place] [address] PCP - General Family Medicine 08/08/10 Robin Johansen MD [address] [place] [address] Cardiology 10/03/16 Espionza Kimbrough MD [address] [place] [address] [place] [address] Physician Thoracic Surgery 11/29/18 David Avila MD [address] [place] [address] Vascular Surgery 01/06/19 Algorithm Developer Relationship Specialty Start Date End Date Jaci Arroyo MD [address] [place] [address] PCP - General Family Medicine 08/08/10 Robin Johansen MD [address] [place] [address] Cardiology 10/03/16 Espinoza Kimbrough MD [address] [place] [address] [place] [address] Physician Thoracic Surgery 11/29/18 David Avila MD [address] [facility] [place] [address] Vascular Surgery 01/06/19 Algorithm Developer Relationship Specialty Start Date End Date Jaci Arroyo MD [address] [place] [address] PCP - General Family Medicine 08/08/10 Robin Johansen MD [address] [place] [address] Cardiology 10/03/16 Espinoza Kimbrough MD [address] [place] [address] [place] [address] Physician Thoracic Surgery 11/29/18 David Avila MD [address] [place] [address] Vascular Surgery 01/06/19 Algorithm Developer Relationship Specialty Start Date End Date Jaci Arroyo MD [address] [place] [address] PCP - General Family Medicine 08/08/10 Robin Johansen MD [address] [place] [address] Cardiology 10/03/16 Espinoza Kimbrough MD [address] [place] [address] [place] [address] Physician Thoracic Surgery 11/29/18 David Avila MD [address] [place] [address] Vascular Surgery 01/06/19 Algorithm Developer Relationship Specialty Start Date End Date Jaci Arroyo MD [address] [place] [address] PCP - General Family Medicine 08/08/10 Robin Johansen MD [address] [place] [address] Cardiology 10/03/16 Espinoza Kimbrough MD [address] [place] [address] [place] [address] Physician Thoracic Surgery 11/29/18 David Avila MD [address] [place] [address] Vascular Surgery 01/06/19 Algorithm Developer Relationship Specialty Start Date End Date Jaci Arroyo MD [address] [place] [address] PCP - General Family Medicine 08/08/10 Robin Johansen MD [address] [place] [address] Cardiology 10/03/16 Espinoza Kimbrough MD [address] [place] [address] [place] [address] Physician Thoracic Surgery 11/29/18 David Avila MD [address] [place] [address] Vascular Surgery 01/06/19 Algorithm Developer Relationship Specialty Start Date End Date Jaci Arroyo MD [address] [place] [address] PCP - General Family Medicine 08/08/10 Robin Johansen MD [address] [place] [address] Cardiology 10/03/16 Espinoza Kimbrough MD [address] [place] [address] [place] [address] Physician Thoracic Surgery 11/29/18 David Avila MD [address] [place] [address] Vascular Surgery 01/06/19 Algorithm Developer Relationship Specialty Start Date End Date Jaci Arroyo MD [address] [place] [address] PCP - General Family Medicine 08/08/10 Robin Johansen MD [address] [place] [address] Cardiology 10/03/16 Espinoza Kimbrough MD [address] [place] [address] [place] [address] Physician Thoracic Surgery 11/29/18 David Avila MD [address] [place] [address] Vascular Surgery 01/06/19 Algorithm Developer Relationship Specialty Start Date End Date Jaci Arroyo MD [address] [place] [address] PCP - General Family Medicine 08/08/10 Robin Johansen MD [address] [place] [address] Cardiology 10/03/16 Espinoza Kimbrough MD [address] [place] [address] [place] [address] Physician Thoracic Surgery 11/29/18 David Avila MD [address] [place] [address] Vascular Surgery 01/06/19 Algorithm Developer Relationship Specialty Start Date End Date Jaci Arroyo MD [address] [place] [address] PCP - General Family Medicine 08/08/10 Robin Johansen MD [address] [place] [address] Cardiology 10/03/16 Espinoza Kimbrough MD [address] [place] [address] [place] [address] Physician Thoracic Surgery 11/29/18 David Avila MD [address] [facility] [place] [address] Vascular Surgery 01/06/19 Algorithm Developer Relationship Specialty Start Date End Date Jaci Arroyo MD [address] [place] [address] PCP - General Family Medicine 08/08/10 Robin Johansen MD [address] [place] [address] Cardiology 10/03/16 Espinoza Kimbrough MD [address] [place] [address] [place] [address] Physician Thoracic Surgery 11/29/18 David Avila MD [address] [place] [address] Vascular Surgery 01/06/19 Algorithm Developer Relationship Specialty Start Date End Date Jaci Arroyo MD [address] [place] [address] PCP - General Family Medicine 08/08/10 Robin Johansen MD [address] [place] [address] Cardiology 10/03/16 Espinoza Kimbrough MD [address] [place] [address] [place] [address] Physician Thoracic Surgery 11/29/18 David Avila MD [address] [facility] [place] [address] Vascular Surgery 01/06/19 Algorithm Developer Relationship Specialty Start Date End Date Jaci Arroyo MD [address] [place] [address] PCP - General Family Medicine 08/08/10 Robin Johansen MD [address] [place] [address] Cardiology 10/03/16 Espinoza Kimbrough MD [address] [place] [address] [place] [address] Physician Thoracic Surgery 11/29/18 David Avila MD [address] [address] Vascular Surgery 01/06/19 Algorithm Developer Relationship Specialty Start Date End Date Jaci Arroyo MD [address] [place] [address] PCP - General Family Medicine 08/08/10 Robin Johansen MD [address] [place] [address] Cardiology 10/03/16 Espinoza Kimbrough MD [address] [place] [address] [place] [address] Physician Thoracic Surgery 11/29/18 David Avila MD [address] [place] [address] Vascular Surgery 01/06/19 Algorithm Developer Relationship Specialty Start Date End Date Jaci Arroyo MD [address] [place] [address] PCP - General Family Medicine 08/08/10 Robin Johansen MD [address] [place] [address] Cardiology 10/03/16 Espinoza Kimbrough MD [address] [place] [address] [place] [address] Physician Thoracic Surgery 11/29/18 David Avila MD [address] [address] Vascular Surgery 01/06/19 Algorithm Developer Relationship Specialty Start Date End Date Jaci Arroyo MD [address] [place] [address] PCP - General Family Medicine 08/08/10 Robin Johansen MD [address] [place] [address] Cardiology 10/03/16 Espinoza Kimbrough MD [address] [place] [address] [place] [address] Physician Thoracic Surgery 11/29/18 David Avila MD [address] [place] [address] Vascular Surgery 01/06/19 Algorithm Developer Relationship Specialty Start Date End Date Jaci Arroyo MD [address] [place] [address] PCP - General Family Medicine 08/08/10 Robin Johansen MD [address] [place] [address] Cardiology 10/03/16 Espinoza Kimbrough MD [address] [place] [address] [place] [address] Physician Thoracic Surgery 11/29/18 David Avila MD [address] [place] [address] Vascular Surgery 01/06/19 Algorithm Developer Relationship Specialty Start Date End Date Jaci Arroyo MD [address] [place] [address] PCP - General Family Medicine 08/08/10 Robin Johansen MD [address] [place] [address] Cardiology 10/03/16 Espinoza Kimbrough MD [address] [place] [address] [place] [address] Physician Thoracic Surgery 11/29/18 David Avila MD [address] [place] [address] Vascular Surgery 01/06/19 Algorithm Developer Relationship Specialty Start Date End Date Jaci Arroyo MD [address] [place] [address] PCP - General Family Medicine 08/08/10 Robin Johansen MD [address] [place] [address] Cardiology 10/03/16 Espinoza Kimbrough MD [address] [place] [address] [place] [address] Physician Thoracic Surgery 11/29/18 David Avila MD [address] [place] [address] Vascular Surgery 01/06/19 Algorithm Developer Relationship Specialty Start Date End Date Jaci Arroyo MD [address] [place] [address] PCP - General Family Medicine 08/08/10 Robin Johansen MD [address] [place] [address] Cardiology 10/03/16 Espinoza Kimbrough MD [address] [place] [address] [place] [address] Physician Thoracic Surgery 11/29/18 David Avila MD [address] [facility] [place] [address] Vascular Surgery 01/06/19 Algorithm Developer Relationship Specialty Start Date End Date Jaci Arroyo MD [address] [place] [address] PCP - General Family Medicine 08/08/10 Robin Johansen MD [address] [place] [address] Cardiology 10/03/16 Espinoza Kimbrough MD [address] [place] [address] [place] [address] Physician Thoracic Surgery 11/29/18 David Avila MD [address] [place] [address] Vascular Surgery 01/06/19 Algorithm Developer Relationship Specialty Start Date End Date Jaci Arroyo MD [address] [place] [address] PCP - General Family Medicine 08/08/10 Robin Johansen MD [address] [place] [address] Cardiology 10/03/16 Espinoza Kimbrough MD [address] [place] [address] [place] [address] Physician Thoracic Surgery 11/29/18 David Avila MD [address] [place] [address] Vascular Surgery 01/06/19 Algorithm Developer Relationship Specialty Start Date End Date Jaci Arroyo MD [address] [place] [address] PCP - General Family Medicine 08/08/10 Robin Johansen MD [address] [place] [address] Cardiology 10/03/16 Espinoza Kimbrough MD [address] [place] [address] [place] [address] Physician Thoracic Surgery 11/29/18 David Avila MD [address] [facility] [place] [address] Vascular Surgery 01/06/19 Algorithm Developer Relationship Specialty Start Date End Date Jaci Arroyo MD [address] [place] [address] PCP - General Family Medicine 08/08/10 Robin Johansen MD [address] [place] [address] Cardiology 10/03/16 Espinoza Kimbrough MD [address] [place] [address] [place] [address] Physician Thoracic Surgery 11/29/18 David Avila MD [address] [facility] [place] [address] Vascular Surgery 01/06/19 Algorithm Developer Relationship Specialty Start Date End Date Jaci Arroyo MD [address] [place] [address] PCP - General Family Medicine 08/08/10 Robin Johansen MD [address] [place] [address] Cardiology 10/03/16 Espinoza Kimbrough MD [address] [place] [address] [place] [address] Physician Thoracic Surgery 11/29/18 David Avila MD [address] [place] [address] Vascular Surgery 01/06/19 Algorithm Developer Relationship Specialty Start Date End Date Jaci Arroyo MD [address] [facility] [place] [address] PCP - General Family Medicine 08/08/10 Robin Johansen MD [address] [place] [address] Cardiology 10/03/16 Espinoza Kimbrough MD [address] [place] [address] [place] [address] Physician Thoracic Surgery 11/29/18 David Avila MD [address] [place] [address] Vascular Surgery 01/06/19 Jessie Harmon APRN.CNP [address] [facility] [place] [address] [employer] Teacher Family Medicine 07/12/24 Algorithm Developer Relationship Specialty Start Date End Date Jaci Arroyo MD [address] [facility] [place] [address] PCP - General Family Medicine 08/08/10 Robin Johansen MD [address] [place] [address] Cardiology 10/03/16 Espinoza Kimbrough MD [address] [place] [address] [place] [address] Physician Thoracic Surgery 11/29/18 David Avila MD [address] [place] [address] Vascular Surgery 01/06/19 Jessie Harmon APRN.OPERATIONS LABEL CLERK [address] [place] [address] [employer] Special [employer] Teacher Family [facility] 07/12/24 Mariano Beckman APRN.OPERATIONS LABEL CLERK [address] [place] [address] [employer] [facility] 07/21/24 Algorithm Developer Relationship Specialty Start Date End Date Jaci Arroyo MD [address] [place] [address] PCP - General Family Medicine 08/08/10 Robin Johansen MD [address] [place] [address] Cardiology 10/03/16 Espinoza Kimbrough MD [address] [address] [place] [address] Physician Thoracic Surgery 11/29/18 David Avila MD [address] [place] [address] Vascular Surgery 01/06/19 Jessie Harmon APRN.OPERATIONS LABEL CLERK [address] [place] [address] [employer] Teacher Family Medicine 07/12/24 Mariano Beckman APRN.OPERATIONS LABEL CLERK [address] [place] [address] [employer] Special Education Teacher [facility] 07/21/24 Algorithm Developer Relationship Specialty Start Date End Date Jaci Arroyo MD [address] [place] [address] PCP - General Family Medicine 08/08/10 Robin Johansen MD [address] [place] [address] Cardiology 10/03/16 Espinoza Kimbrough MD [address] [place] [address] Physician Thoracic Surgery 11/29/18 David Avila MD [address] [place] [address] Vascular Surgery 01/06/19 Jessie Harmon APRN.OPERATIONS LABEL CLERK [address] [place] [address] [employer] Teacher Family Medicine 07/12/24 Mariano Beckman, BUILDING EQUIPMENT INSPECTOR.OPERATIONS LABEL CLERK [address] [place] [address] Middle [employer] Special Education Teacher Family [facility] 07/21/24 Algorithm Developer Relationship Specialty Start Date End Date Jaci Arroyo MD [address] [facility] [place] [address] PCP - General Family Medicine 08/08/10 Robin Johansen MD [address] [place] [address] Cardiology 10/03/16 Espinoaz Kimbrough MD [address] [address] [place] [address] Physician Thoracic Surgery 11/29/18 David Avila MD [address] [place] [address] Vascular Surgery 01/06/19 Jessie Harmon APRN.OPERATIONS LABEL CLERK [address] [place] [address] [employer] Teacher Family Medicine 07/12/24 Mariano Beckman APRN.OPERATIONS LABEL CLERK [address] [place] [address] Middle [employer] Special Education Teacher Family [facility] 07/21/24 Algorithm Developer Relationship Specialty Start Date End Date Jaci Arroyo MD [address] [place] [address] PCP - General Family Medicine 08/08/10 Robin Johansen MD [address] [place] [address] Cardiology 10/03/16 Espinoza Kimbrough MD [address] [address] [place] [address] Physician Thoracic Surgery 11/29/18 David Avila MD [address] [place] [address] Vascular Surgery 01/06/19 Jessie Harmon APRN.OPERATIONS LABEL CLERK [address] [place] [address] [employer] Special Education Teacher [facility] 07/12/24 Mariano Beckman APRN.OPERATIONS LABEL CLERK [address] [place] [address] [employer] Special Education Teacher [facility] 07/21/24 Algorithm Developer Relationship Specialty Start Date End Date Jaci Arroyo MD [address] [place] [address] PCP - General Family Medicine 08/08/10 Robin Johansen MD [address] [place] [address] Cardiology 10/03/16 Espinoza Kimbrough MD [address] [place] [address] Physician Thoracic Surgery 11/29/18 David Avila MD [address] [place] [address] Vascular Surgery 01/06/19 Jessie Harmon APRN.OPERATIONS LABEL CLERK [address] [place] [address] [employer] Education [facility] 07/12/24 Mariano Beckman APRN.OPERATIONS LABEL CLERK [address] [place] [address] [facility] 07/21/24 Algorithm Developer Relationship Specialty Start Date End Date Jaci Arroyo MD [address] [place] [address] PCP - General Family Medicine 08/08/10 Robin Johansen MD [address] [place] [address] Cardiology 10/03/16 Espinoza Kimbrough MD [address] [place] [address] [place] [address] Physician Thoracic Surgery 11/29/18 David Avila MD [address] [facility] [place] [address] Vascular Surgery 01/06/19 Jessie Harmon APRN.OPERATIONS LABEL CLERK [address] [place] [address] [employer] Special Education Teacher Family Medicine 07/12/24 Mariano Beckman APRN.OPERATIONS LABEL CLERK [address] [place] [address] [employer] Special Education Teacher Family [facility] 07/21/24 Algorithm Developer Relationship Specialty Start Date End Date Jaci Arroyo MD [address] [place] [address] PCP - General Family Medicine 08/08/10 Robin Johansen MD [address] [place] [address] Cardiology 10/03/16 Espinoza Kimbrough MD [address] [place] [address] [place] [address] Physician Thoracic Surgery 11/29/18 David Avila MD [address] [facility] [place] [address] Vascular Surgery 01/06/19 Jessie Harmon APRN.OPERATIONS LABEL CLERK [address] [place] [address] [employer] Teacher [facility] 07/12/24 Mariano Beckman APRN.OPERATIONS LABEL CLERK [address] [place] [address] [employer] Education [facility] 07/21/24 Algorithm Developer Relationship Specialty Start Date End Date Jaci Arroyo MD [address] [place] [address] PCP - General Family Medicine 08/08/10 Robin Johansen MD [address] [facility] [address] [place] [address] Cardiology 10/03/16 Espinoza Kimbrough MD [address] [place] [address] Physician Thoracic Surgery 11/29/18 David Avila MD [address] [place] [address] Vascular Surgery 01/06/19 Jessie Harmon APRN.OPERATIONS LABEL CLERK [address] [place] [address] [employer] Teacher Family Medicine 07/12/24 Mariano Beckman APRN.OPERATIONS LABEL CLERK [address] [place] [address] [employer] Education [facility] 07/21/24 Algorithm Developer Relationship Specialty Start Date End Date Jaci Arroyo MD [address] [place] [address] PCP - General Family Medicine 08/08/10 Robin Johansen MD [address] [place] [address] (Fax) Cardiology 10/03/16 Espinoza Kimbrough MD [address] [address] [place] [address] Physician Thoracic Surgery 11/29/18 David Avila MD [address] [place] [address] Vascular Surgery 01/06/19 Jessie Harmon APRN.OPERATIONS LABEL CLERK [address] [place] [address] [employer] Teacher Family Medicine 07/12/24 Mariano Beckman APRN.OPERATIONS LABEL CLERK [address] [place] [address] [employer] Teacher Family [facility] 07/21/24 Algorithm Developer Relationship Specialty Start Date End Date Jaci Arroyo MD [address] [place] [address] PCP - General Family Medicine 08/08/10 Robin Johansen MD [address] [place] [address] (Fax) Cardiology 10/03/16 Espinoza Kimbrough MD [address] [address] [place] [address] Physician Thoracic Surgery 11/29/18 David Avila MD [address] [place] [address] Vascular Surgery 01/06/19 Jessie Harmon APRN.OPERATIONS LABEL CLERK [address] [place] [address] [employer] [facility] 07/12/24 Mariano Beckman APRN.OPERATIONS LABEL CLERK [address] [place] [address] [facility] 07/21/24 Algorithm Developer Relationship Specialty Start Date End Date Jaci Arroyo MD [address] [place] [address] PCP - General Family Medicine 08/08/10 Robin Johansen MD [address] [place] [address] Cardiology 10/03/16 Espinoza Kimbrough MD [address] [facility] [address] [place] [address] Physician Thoracic Surgery 11/29/18 David Avila MD [address] [place] [address] Vascular Surgery 01/06/19 Jessie Harmon APRN.OPERATIONS LABEL CLERK [address] [place] [address] [facility] 07/12/24 Mariano Beckman APRN.OPERATIONS LABEL CLERK [address] [place] [address] [employer] Teacher Family Medicine 07/21/24 Algorithm Developer Relationship Specialty Start Date End Date Jaci Arroyo MD [address] [place] [address] PCP - General Family Medicine 08/08/10 Robin Johansen MD [address] [place] [address] Cardiology 10/03/16 Espinoza Kimbrough MD [address] [place] [address] [place] [address] Physician Thoracic Surgery 11/29/18 David Avila MD [address] [place] [address] Vascular Surgery 01/06/19 Jessie Harmon APRN.OPERATIONS LABEL CLERK [address] [place] [address] [employer] Teacher Family Medicine 07/12/24 Mariano Beckman APRN.OPERATIONS LABEL CLERK [address] [place] [address] [employer] Teacher Family [facility] 07/21/24 Algorithm Developer Relationship Specialty Start Date End Date Jaci Arroyo MD [address] [place] [address] PCP - General Family Medicine 08/08/10 Robin Johansen MD [address] [place] [address] Cardiology 10/03/16 Espinoza Kimbrough MD [address] [place] [address] [place] [address] Physician Thoracic Surgery 11/29/18 David Avila MD [address] [place] [address] Vascular Surgery 01/06/19 Jessie Harmon APRN.OPERATIONS LABEL CLERK [address] [place] [address] [employer] Teacher [facility] 07/12/24 Mariano Beckman APRN.OPERATIONS LABEL CLERK [address] [place] [address] [facility] 07/21/24 Algorithm Developer Relationship Specialty Start Date End Date Jaci Arroyo MD [address] [place] [address] PCP - General Family Medicine 08/08/10 Robin Johansen MD [address] [place] [address] Cardiology 10/03/16 Espinoza Kimbrough MD [address] [facility] [address] [address] [place] [address] Physician Thoracic Surgery 11/29/18 David Avila MD [address] [place] [address] Vascular Surgery 01/06/19 Jessie Harmon APRN.OPERATIONS LABEL CLERK [address] [place] [address] [employer] Teacher Family [facility] 07/12/24 Mariano Beckman APRN.OPERATIONS LABEL CLERK [address] [place] [address] [employer] Teacher Family Medicine 07/21/24 Algorithm Developer Relationship Specialty Start Date End Date Jaci Arroyo MD [address] [place] [address] PCP - General Family Medicine 08/08/10 Robin Johansen MD [address] [place] [address] Cardiology 10/03/16 Espinoza Kimbrough MD [address] [place] [address] Physician Thoracic Surgery 11/29/18 David Avila MD [address] [place] [address] Vascular Surgery 01/06/19 Jessie Harmon APRN.OPERATIONS LABEL CLERK [address] [place] [address] [employer] Teacher Family Medicine 07/12/24 Mariano Beckman APRN.OPERATIONS LABEL CLERK [address] [place] [address] [employer] Teacher Family Medicine 07/21/24 Algorithm Developer Relationship Specialty Start Date End Date Jaci Arroyo MD [address] [place] [address] PCP - General Family Medicine 08/08/10 Robin Johansen MD [address] [place] [address] Cardiology 10/03/16 Espinoza Kimbrough MD [address] [address] [place] [address] Physician Thoracic Surgery 11/29/18 David Avila MD [address] [place] [address] Vascular Surgery 01/06/19 Jessie Harmon APRN.OPERATIONS LABEL CLERK [address] [place] [address] [employer] Teacher Family Medicine 07/12/24 Mariano Beckman APRN.OPERATIONS LABEL CLERK [address] [place] [address] [employer] Teacher [facility] 07/21/24 Algorithm Developer Relationship Specialty Start Date End Date Jaci Arroyo MD [address] [place] [address] PCP - General Family Medicine 08/08/10 Robin Johansen MD [address] [place] [address] Cardiology 10/03/16 Espinoza Kimbrough MD [address] [place] [address] [place] [address] Physician Thoracic Surgery 11/29/18 David Avila MD [address] [address] Vascular Surgery 01/06/19 Jessie Harmon APRN.OPERATIONS LABEL CLERK [address] [place] [address] [employer] Teacher Family [facility] 07/12/24 Mariano Beckman APRN.OPERATIONS LABEL CLERK [address] [place] [address] [employer] Teacher [facility] 07/21/24 Algorithm Developer Relationship Specialty Start Date End Date Jaci Arroyo MD [address] [place] [address] PCP - General Family Medicine 08/08/10 Robin Johansen MD [address] [place] [address] Cardiology 10/03/16 Espinoza Kimbrough MD [address] [address] [place] [address] Physician Thoracic Surgery 11/29/18 David Avila MD [address] [place] [address] Vascular Surgery 01/06/19 Jessie Harmon APRN.OPERATIONS LABEL CLERK [address] [place] [address] [facility] 07/12/24 Mariano Beckman APRN.OPERATIONS LABEL CLERK [address] [place] [address] [employer] Teacher [facility] 07/21/24 Algorithm Developer Relationship Specialty Start Date End Date Jaci Arroyo MD [address] [place] [address] PCP - General Family Medicine 08/08/10 Robin Johansen MD [address] [place] [address] Cardiology 10/03/16 Espinoza Kimbrough MD [address] [address] [place] [address] Physician Thoracic Surgery 11/29/18 David Avila MD [address] [facility] [address] Vascular Surgery 01/06/19 Jessie Harmon APRN.OPERATIONS LABEL CLERK [address] [place] [address] [employer] Teacher Family [facility] 07/12/24 Mariano Beckman APRN.OPERATIONS LABEL CLERK [address] [place] [address] [employer] Teacher [facility] 07/21/24 Algorithm Developer Relationship Specialty Start Date End Date Jaci Arroyo MD [address] [place] [address] PCP - General Family Medicine 08/08/10 Robin Johansen MD [address] [place] [address] Cardiology 10/03/16 Espinoza Kimbrough MD [address] [address] [place] [address] Physician Thoracic Surgery 11/29/18 David Avila MD [address] [place] [address] Vascular Surgery 01/06/19 Jessie Harmon APRN.OPERATIONS LABEL CLERK [address] [place] [address] [employer] Teacher Family Medicine 07/12/24 Mariano Beckman APRN.OPERATIONS LABEL CLERK [address] [place] [address] [employer] Teacher Family Medicine 07/21/24 Algorithm Developer Relationship Specialty Start Date End Date Jaci Arroyo MD [address] [place] [address] PCP - General Family Medicine 08/08/10 Robin Johansen MD [address] [place] [address] Cardiology 10/03/16 Espinoza Kimbrough MD [address] [place] [address] Physician Thoracic Surgery 11/29/18 David Avila MD [address] [place] [address] Vascular Surgery 01/06/19 Jessie Harmon APRN.OPERATIONS LABEL CLERK [address] [place] [address] [employer] Teacher Family Medicine 07/12/24 Mariano Beckman APRN.OPERATIONS LABEL CLERK [address] [place] [address] [employer] Teacher Family [facility] 07/21/24 Algorithm Developer Relationship Specialty Start Date End Date Jaci Arroyo MD [address] [place] [address] PCP - General Family Medicine 08/08/10 Robin Johansen MD [address] [place] [address] Cardiology 10/03/16 Espinoza Kimbrough MD [address] [address] [place] [address] Physician Thoracic Surgery 11/29/18 David Avila MD [address] [place] [address] Vascular Surgery 01/06/19 Jessie Harmon APRN.OPERATIONS LABEL CLERK [address] [place] [address] [employer] Teacher Family [facility] 07/12/24 Mariano Beckman APRN.OPERATIONS LABEL CLERK [address] [place] [address] [employer] Teacher [facility] 07/21/24 Algorithm Developer Relationship Specialty Start Date End Date Jaci Arroyo MD [address] [place] [address] PCP - General Family Medicine 08/08/10 Robin Johansen MD [address] [place] [address] Cardiology 10/03/16 Espinoza Kimbrough MD [address] [place] [address] [place] [address] Physician Thoracic Surgery 11/29/18 David Avila MD [address] [place] [address] Vascular Surgery 01/06/19 Jessie Harmon APRN.OPERATIONS LABEL CLERK [address] [place] [address] [employer] Teacher Family Medicine 07/12/24 Mariano Beckman APRN.OPERATIONS LABEL CLERK [address] [place] [address] [employer] Teacher Family Medicine 07/21/24 Algorithm Developer Relationship Specialty Start Date End Date Jaci Arroyo MD [address] [facility] [place] [place] [address] PCP - General Family Medicine 08/08/10 Robin Johansen MD [address] [place] [address] Cardiology 10/03/16 Espinoza Kimbrough MD [address] [place] [address] Physician Thoracic Surgery 11/29/18 David Avila MD [address] [place] [address] Vascular Surgery 01/06/19 Jessie Harmon APRN.OPERATIONS LABEL CLERK [address] [place] [address] [employer] Teacher Family Medicine 07/12/24 Mariano Beckman APRN.OPERATIONS LABEL CLERK [address] [facility] [place] [address] [employer] Teacher Family Medicine 07/21/24 Algorithm Developer Relationship Specialty Start Date End Date Jaci Arroyo MD [address] [place] [address] PCP - General Family Medicine 08/08/10 Robin Johansen MD [address] [place] [address] (Fax) Cardiology 10/03/16 Espinoza Kimbrough MD [address] [place] [address] Physician Thoracic Surgery 11/29/18 David Avila MD [address] [place] [address] Vascular Surgery 01/06/19 Mariano Beckman APRN.[facility] [address] [place] [address] [employer] Teacher Family Medicine 07/21/24 Phong Wilhelm MD [address] [place], [place] [id number] Neurology 12/31/24 Algorithm Developer Relationship Specialty Start Date End Date Jaci Arroyo MD [address] [place] [address] PCP - General Family Medicine 08/08/10 Robin Johansen MD [address] [place] [address] (Fax) Cardiology 10/03/16 Espinoza Kimbrough MD [address] [place] [address] Physician Thoracic Surgery 11/29/18 David Avila MD [address] [place] [address] Vascular Surgery 01/06/19 Mariano Beckman APRN.OPERATIONS LABEL CLERK [address] [place] [address] [employer] Teacher Family [facility] 07/21/24 Phong Wilhelm MD [address] [place] [address] Neurology 12/31/24 Algorithm Developer Relationship Specialty Start Date End Date Jaci Arroyo MD [address] [place] [address] PCP - General Family Medicine 08/08/10 Robin Johansen MD [address] [place] [address] Cardiology 10/03/16 Espinoza Kimbrough MD [address] [facility] [address] [address] [place] [address] Physician Thoracic Surgery 11/29/18 David Avila MD [address] [place] [address] Vascular Surgery 01/06/19 Mariano Beckman APRN.OPERATIONS LABEL CLERK [address] [place] [address] [employer] Teacher [facility] 07/21/24 Phong Wilhelm MD [address] [place] [address] Neurology 12/31/24 Algorithm Developer Relationship Specialty Start Date End Date Jaci Arroyo MD [address] [place] [address] PCP - General Family Medicine 08/08/10 Robin Johansen MD [address] [place] [address] Cardiology 10/03/16 Espinoza Kimbrough MD [address] [place], [place] [address] Physician Thoracic Surgery 11/29/18 David Avila MD [address] [place] [address] Vascular Surgery 01/06/19 Jessie Harmon APRN.OPERATIONS LABEL CLERK [address] [place] [address] [employer] Teacher Family Medicine 07/12/24 12/16/24 Mariano Beckman APRN.OPERATIONS LABEL CLERK [address] [place] [address] [employer] Teacher Family Medicine 07/21/24 Phong Wilhelm MD [address] [place], [place] [id number] Neurology 12/31/24 Algorithm Developer Relationship Specialty Start Date End Date Jaci Arroyo MD [address] [place] [address] PCP - General Family Medicine 08/08/10 Robin Johansen MD [address] [place] [address] Cardiology 10/03/16 Espinoza Kimbrough MD [address] [place] [address] Physician Thoracic Surgery 11/29/18 David Avila MD [address] [place] [address] Vascular Surgery 01/06/19 Mariano Beckman APRN.OPERATIONS LABEL CLERK [address] [place] [address] [employer] Teacher Family [facility] 07/21/24 Phnog Wilhelm MD [address] [place], [place] [address] Neurology 12/31/24 Algorithm Developer Relationship Specialty Start Date End Date Jaci Arroyo MD [address] [place] [address] PCP - General Family Medicine 08/08/10 Robin Johansen MD [address] [place] [address] Cardiology 10/03/16 Espinoza Kimbrough MD 1 [facility] [address] [place] [address] Physician Thoracic Surgery 11/29/18 David Avila MD [address] [place] [address] Vascular Surgery 01/06/19 Mariano Beckman APRN.OPERATIONS LABEL CLERK [address] [place] [address] [employer] Teacher Family [facility] 07/21/24 Phong Wilhelm MD [address] [place] [address] Neurology 12/31/24 Algorithm Developer Relationship Specialty Start Date End Date Jaci Arroyo MD [address] [place] [address] PCP - General Family Medicine 08/08/10 Robin Johansen MD [address] [place] [address] Cardiology 10/03/16 Espinoza Kimbrough MD [address] [place] [address] Physician Thoracic Surgery 11/29/18 David Avila MD [address] [facility] [place] [address] Vascular Surgery 01/06/19 Mariano Beckman APRN.OPERATIONS LABEL CLERK [address] [place] [address] [employer] Teacher Family Medicine 07/21/24 Phong Wilhelm MD [address] [place] [address] Neurology 12/31/24 Algorithm Developer Relationship Specialty Start Date End Date Jaci Arroyo MD [address] [place] [address] PCP - General Family Medicine 08/08/10 Robin Johansen MD [address] [place] [address] Cardiology 10/03/16 Espinoza Kimbrough MD [address] [place] [address] Physician Thoracic Surgery 11/29/18 David Avila MD [address] [place] [address] Vascular Surgery 01/06/19 Mariano Beckman APRN.OPERATIONS LABEL CLERK [address] [place] [address] [employer] Teacher Family Medicine 07/21/24 Phong Wilhelm MD [address] [place] [address] Neurology 12/31/24 Algorithm Developer Relationship Specialty Start Date End Date Jaci Arroyo MD [address] [place] [address] PCP - General Family Medicine 08/08/10 Robin Johansen MD [address] [place] [address] Cardiology 10/03/16 Espinoza Kimbrough MD [address] [place] [address] Physician Thoracic Surgery 11/29/18 David Avila MD [address] [place] [address] Vascular Surgery 01/06/19 Mariano Beckman APRN.OPERATIONS LABEL CLERK [address] [place] [address] [employer] Teacher Family Medicine 07/21/24 Phong Wilhelm MD [address] [place] [address] Neurology 12/31/24 Algorithm Developer Relationship Specialty Start Date End Date Jaci Arroyo MD [address] [place] [address] PCP - General Family Medicine 08/08/10 Robin Johansen MD [address] [place] [address] Cardiology 10/03/16 Espinoza Kimbrough MD [address] [place] [address] Physician Thoracic Surgery 11/29/18 David Avila MD [address] [facility] [place] [address] Vascular Surgery 01/06/19 Mariano Beckman APRN.OPERATIONS LABEL CLERK [address] [place] [address] [employer] Teacher Family Medicine 07/21/24 Phong Wilhelm MD [address] [place] [address] Neurology 12/31/24 Algorithm Developer Relationship Specialty Start Date End Date Jaci Arroyo MD [address] [place] [address] PCP - General Family Medicine 08/08/10 Robin Johansen MD [address] [place] [address] Cardiology 10/03/16 Espinoza Kimbrough MD [address] [facility] [address] [place] [address] Physician Thoracic Surgery 11/29/18 David Avila MD [address] [place] [address] Vascular Surgery 01/06/19 Mariano Beckman APRN.OPERATIONS LABEL CLERK [address] [place] [address] [employer] Teacher Family Medicine 07/21/24 Phong Wilhelm MD [address] [place], [place] [id number] Neurology 12/31/24 Goals (unrecognized section and content) Goals may be documented in a n alternate sectionGoals may be documented in an alternate sectionGoals may be documented in an alternate sectionGoals may be documented in an alternate section No data available for this section No data available for this sectionGoals may be documented in an alternate sectionGoals may be documented in an alternate section No data available for this section No data available for this section FOR RECORDS PERTAINING TO PATIENTS WHO ARE OR HAVE BEEN ENROLLED IN A CHEMICAL DEPENDENCY/SUBSTANCEABUSE PROGRAM, SOME INFORMATION MAY BE OMITTED. This clinical summary was aggregated from multiple sources. Caution should be exercised in using it in the provision of clinical care. This summary normalizes information from multiple sources, and as a consequence, information in this document may materially change the coding, format and clinical context of patient data. In addition, data may be omitted in some cases. CLINICAL DECISIONS SHOULD BE BASED ON THE PRIMARY CLINICAL RECORDS. [employer] provides no warranty or guarantee of the accuracy or completeness of information in this document.
--- OUTSIDE RECORDS SUMMARY | 2025-03-15 22:24 | XMS RPT_ITS | CCD ---
Author Organization [facility] Care Team Providers Care [place] Department Specialist Name Role Phone KAREEM SALDANA Attending Unavailable [...] Provider Dr. Doug Mcgrath Attending Provider Rio PHYSICIAN OFFICE CLIN ASST, PHYSICIAN OFFICE CLIN ASST-C Soraya Referring Provider Rio DE, PHYSICIAN OFFICE CLIN ASST-C Soraya Other Provider Jaci Arroyo MD Primary [...] Provider Dr. Jaci Arroyo Referring Provider Rio PHYSICIAN OFFICE CLIN ASST, PHYSICIAN OFFICE CLIN ASST-C Soraya Attending Provider Jose Maria PHYSICIAN OFFICE CLIN ASST, PHYSICIAN OFFICE CLIN ASST-C Kassandra Attending Provider Dr. Matt Almanza Attending Provider [phone] Boris, Dr. Arti Hardy Admit Provider Korwilfredo, Dr. Arti Hardy Other Provider Baldo, Dr. Maynard Attending Provider Dr. Felecia Burns Referring Provider CRUZ WHITMAN, DR BEATTY Primary Care Physician [phone] Dr. Jaci Arroyo Primary Care Provider Jose Maria PHYSICIAN OFFICE CLIN ASST, PHYSICIAN OFFICE CLIN ASST-C Kassandra Attending Provider Elvis Ashraf, Dr. Gutierrez Attending Provider [phone] SASHA NEAL Attending Unavailable CRUZ, JACI Pappas Primary Care Unavailable JORGE CARDOSO Referring Unavailable REMEDIOS HO, DR WEBB Referring Unavailable KENNEN NEW GRAD RN-LAUNDRY OPERATOR WASH ROOM, KYLIE Hart Attending Unavai mykel RIVERA NEW GRAD RN-LAUNDRY OPERATOR WASH ROOM, ALETA M Admitting Unavail cora ARROYO MD, DR BEATTY Primary Care Unavailab le WILLIAM NEW GRAD RN-LAUNDRY OPERATOR WASH ROOM, KYLIE Hart Admitting Unavanacho VIEIRA MD, KRISTEL Referring Unavailable ISHA WHITMAN, KRISTEL Attending Katharina ARROYO MD, DR BEATTY Primary Care Unavailab uma AVALOS MD, MATTHEW Linares Attending Unavail cora ARROYO MD, DR BEATTY Primary Care Unavailab uma HOPKINS MD, MARIANO Sage Attending Katharina ARROYO MD, DR BEATTY Primary Care Unavailab Dr. Jaci Leggett Primary Care Provider Dr. Jaci Arroyo Referring Provider Rio PHYSICIAN OFFICE CLIN ASST, PHYSICIAN OFFICE CLIN ASST-C Soraya Attending Provider [phone] MD Davin [...] MD Davin Kim Referring Provider Jose Maria PHYSICIAN OFFICE CLIN ASST, PHYSICIAN OFFICE CLIN ASST-C Kassandra Attending Provider Dr. Matt Ashraf Attending Provider Dr. Lion Randhawa Attending Provider Jaci Arroyo MD Primary Care Provider GLORIA SAWYER Attending Unavailable DANIA AJ JR Referring Unavailable JACI ARROYO Primary Care Unavailable Tannparadise NEW GRAD RN.Jessie SORIA Unavailable Karuna NEW GRAD RN.Mariano SORIA Unavailable Dov Marin Attending Unavailable Bhavik [...] e Elderbrock, Jaci Primary Care Unavailable Dania jA Referring Unavailable Elderbrock, Jaci Primary Care Unavailable [...] Attending Unavailable Kimo Mcgrath Referring Unavailable Elderbrock, Jaci Primary Care Unavailable Kimo Mcgrath Attending Unavailable [...] Kate De La Cruz Unavailable Unavailable NORA NEW GRAD RN-LAUNDRY OPERATOR WASH ROOM, REGGIE V Admitting Unav ailable NORA NEW GRAD RN-ESTELLA, REGGIE V Attending Unav lona ARROYO MD, DR BEATTY Primary Care Unavailab uma DIAL DO, DR WEBB Referring Unavailable KAPPER NEW GRAD RN-LAUNDRY OPERATOR WASH ROOM, RICARDO Yadav Admitting Unavaila prashanth ARROYO MD, DR BEATTY Primary Care Unavailab uma DIAL DO, DR WEBB Attending Unavailable Tannhof NEW GRAD RN.LAUNDRY OPERATOR WASH ROOM, Jessie Unavailable Unavail able Tannhof NEW GRAD RN.LAUNDRY OPERATOR WASH ROOM, Jessie Unavailable Melonie WHITMAN, Phong R Unavailable Tannhof NEW GRAD RN.LAUNDRY OPERATOR WASH ROOM, Jessie Cathy Unavailable JACI ARROYO Primary Care [...] sources) Azithromycin; Translations: [AZITHROMYCIN] Drug Allergy 9 [facility] Repository (20 sources) Lisinopril; Translations: [LISINOPRIL] Drug Allergy 7 Swelling, Angioedema [facility] Repository (20 sources) SULFATE SALT; Translations: [SULFATE SALT] Propensity to adverse reactions (disorder) 9 [facility] Repository (20 sources) Sulfonamides (Antibiotic); Translations: [SULFA (SULFONAMIDE ANTIBIOTICS)] Allergy to substance 9 [facility] (2 sources) Sulfonamides (Antibiotic); Translations: [sulfa drugs] Drug allergy [facility] (20 sources) Doxycycline; Translations: [DOXYCYCLINE] Drug Allergy 3 GI Upset, Other: See Comments [facility] (2 sources) Sulfonamide; Translations: [sulfa drugs] Drug allergy [facility] Medications Current Medications Medication Drug Class(es) Dates Sig (Normalized) Sig (Original) acetaminophen 325 mg / HYDROcodone bitartrate 5 mg oral tablet (1 source) Opioid Agonist Start: 07-26-2023 End: 07-31-2023 Williamson 325- 5 mg oral tablet Dose = [...] on above: Take 1 capsule by [facility] three times daily for 7 days. apixaban [...] mg/ml extended release suspension (3 sources) Uncompetitive E-gqjvob-I-aspartate Receptor Antagonist, Sigma-1 Agonist Start: 021 take [...] bedtime as needed. TAKE 1 TABLET BY RANDOLPH TH AT BEDTIME NEEDED FeroSul 325 mg [...] mcg/actuation nasal spray Indications: Cough Use 1 Premium in each nostril two times a day. [...] 2020 12:58pm Comment on above: Use 1 Premium in each nostril twice daily. Rinse mouth [...] 1 tablet by randolph th once daily Multivitamin,Gu-Tmtn-Hpcybrvt (Complete Multivitamin) tablet Active 1 TABLET PO DAILY December 03, 2018 11:00pm Start: 12-04-2018 take 1 tablet by randolph th once daily Multivitamin,Iv-Udzw-Mrowelgs (Complete Multivitamin) tablet Active 1 TABLET PO [...] 10 mL injection (DEFINITY) polyethylene glycol 3350 435389 mg / potassium chloride 2970 mg / sodium bicarbonate 6740 mg / sodium chloride 5860 mg / sodium sulfate 05879 mg powder for oral solution (2 sources) [...] number: 1 Start: 11-18-2022 Potassium Chlo ride (Vwh-Fpvm-Nud 10) 10 mEq oral tablet, extended release [...] Start: 05-01-2021 take 2 tablets by [facility] three times daily potassium chloride (K-TAB) 10 mEq tablet Take 2 tablets by mouth three times daily. 540 tablet 3 05/01/2021 Active Start: 03-11-2019 End: 04-19-2020 take 20 mEq by mouth three times daily Potassium Chloride Discontinued 20 MEQ PO THREE TIMES A DAY October 07, 2019 3:56pm April 19, 2020 1:59pm Comment on above: Take 2 tablets by mo [facility] three times daily. predniSONE 10 mg [...] Start: 08-22-2022 take 1 puff(s) by mo [facility] twice daily Budesonide-Formoterol (Symbicort) 160-4.5 mcg/actuation [...] on above: Take 1 capsule by [facility] twice daily for 10 days. cloBAZam [...] foot brace for right leg. Send to [email or web address]. Dx: I63.9 1 Device 09/18/2017 Active Start: 09-18-2017 COMPOUNDED PRE SCRIPTION Articulating AFO foot brace for right leg. Send to [email or web address]. Dx: I63.9 1 Device 0 09/18/2017 Active Start: 09-17-2017 COMPOUNDED PRE SCRIPTION EMBER WALKER DX I63.9 weight 162 # 1 Each 09/17/2017 Active Start: 09-17-2017 COMPOUNDED PRE SCRIPTION EMBER WALKER DX I63.9 weight 162 # 1 Each 0 09/17/2017 Active Comment on above: EMBER WALKER DX I63.9 weight 162 # Articulating AFO alex t brace for right leg. Send to [email or web address]. Dx: I63.9 Right arm wedge. Dis p [...] on above: Take 1 capsule by [facility] twice daily as needed (pain) for [...] at 11pm the night before surgery. nystatin [id number] unt/ml topical cream (20 sources) Polyene Antifungal [...] in structed once daily. polyethylene glycol 3350 44488 mg powder for oral solution (20 sources) [...] 1 puff(s) by inhalation once daily Tiotropium [place] (Spiriva Respimat) 2.5 mcg/actuation mist Discontinued 2 [...] Coronary atherosclerosis; Translations: [Atherosclerotic heart disease of [place] coronary artery without angina pectoris] Onset: 04-02-2021 [...] (11 sources) Drug therapy finding; Translations: [Other long term care phlebotomist (current) drug therapy] 12-05-2020 Episodic Other aftercare (2 sources) Post-discharge follow-up; Translations: [Encounter for follow-up examination after completed treatment for conditions other than malignant neoplasm] 06-30-2024 Episodic Other aftercare (1 source) Other prison (current) drug therapy; Translations: [Other long term care phlebotomist (current) drug therapy] Onset: 06-28-2024 Episodic Other [...] Test Name Value Interpretation Reference Range Facility [facility] 03-10-2025 [facility] Telephone (FAMPWS) AFSHIN ZEE ([id number]) 1955 M Date Time Provider Department 03/10/25 JACI ARROYO During your visit today, we recorded the following information about you: Amaya Kessler RN 03/10/2025 1:11 PM Signed Pt's Eli calling. States pt will be discharging from [facility] tomorrow and she would like to have outpatient therapy ordered for pt. Eli requesting orders for outpatient PT, OT and ST orders, by 4pm on 03/11/25, if possible. She would like to the orders faxed to [facility] AND she would also like then printed out and she may come to pick them up tomorrow-she is undecided yet. [facility], FAX #: [phone] Call Eli will any updates. DIANE Richmond Mark D, MD 03/11/2025 11:44 AM Signed Orders printed MD Alvaro Mathew Krystle, RN 03/11/2025 1:10 PM Signed Eli calls to check on request below. Orders faxed to [facility] as requested. Copies printed and placed in Medical Records for Eli to pickle cutter. Raiza John RN Allergies As of Date: [...] [G81.91] Dysphasia [R47.02] Order(s):CONSULT TO SPEECH THERAPY [[id number]] Order #: [id number]: 1 FUTURE CONSULT TO CLINICAL PSYCHIATRIST [235680] Order #: [id number]: 1 FUTURE CONSULT TO PHYSICAL THERAPY [9065] Order #: [id number]: 1 FUTURE Prescriptions as of 03/11/2025 - [...] (FLONASE) 50 mcg/actuation nasal spray Use 1 Premium in each nostril two times a day. [...] foot brace for right leg. Send to [email or web address]. Dx: I63.9 - COMPOUNDED PRESCRIPTION EMBER WALKER DX I63.9 weight 162 # Problem List As Of Date 03/10/2025 Noted Resolved Hyperlipidemia [E78.5] 06/06/2010 Elevated blood pressure [[id number]] 06/06/2010 03/20/2019 Erectile dysfunction [N52.9] 06/06/2010 Cervicalgia [M54.2] 04/16/2016 Chronic right shoulder pain [M25.511, G89.29 (more content not included)... Normal [facility]20[facility]FAMWS[facility] AFSHIN Z[facility] ([id number]) 1955 M Date Time Provider Department 03/08/25 JACI ARROYO [facility] During your visit today, we recorded [...] 03/08/2025 3:12 PM Signed Letter printed MD Anhtony Mathew Kathryn, MA 03/08/2025 3:33 PM Signed Spoke with pt , Eli. Letter at medical records for pickle cutter. Monica Cruz MA Allergies As of Date: [...] (FLONASE) 50 mcg/actuation nasal spray Use 1 Premium in each nostril two times a day. [...] foot brace for right leg. Send to [email or web address]. Dx: I63.9 - COMPOUNDED PRESCRIPTION EMBER WALKER DX I63.9 weight 162 # Problem List As Of Date 03/08/2025 Noted Resolved Hyperlipidemia [E78.5] 06/06/2010 Elevated blood pressure [GSD5093] 06/06/2010 03/20/2019 Erectile dysfunction [N52.9] 06/06/2010 Cervicalgia [M54.2] 04/16/2016 Chronic right shoulder pain [M25.511, G89.29] 04/16/2016 Occlusion of left carotid artery [I65.22] 07/02/2016 Stroke (cerebrum) (HCC) [I63.9] Aneurysm (HCC) [I72.9] Essential hypertension [I10] 06/25/2017 Anxiety [F41.9] 09/04/2017 Chronic insomnia [F51.04] 04/04/2018 Right hemiplegia (HCC) [G81.91] 04/30/2018 Sinus bradycardia [R00.1] 03/20/2019 Dysphasia [R47.02] Coronary artery disease involving [place] matos*04/02/2021 Paroxysmal atrial fibrillation (HCC) [I48.0] 04/03/2021 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 Normal [facility] CNOVon 03-02-2025 CNOV Office Visit (FAMPWS ) AFSHIN ZEE ([id number]) 1955 M Date Time Provider Department 03/02/25 [...] Diagnosis:Bilateral impacted cerumen [H61.23] Order(s):AMBULATORY EAR LAVAGE/IRRIGATION [[id number]] Order #: [id number] Prescriptions as of 03/02/2025 - ferrous sulfate [...] (FLONASE) 50 mcg/actuation nasal spray Use 1 Premium in each nostril two times a day. [...] foot brace for right leg. Send to [email or web address]. Dx: I63.9 - COMPOUNDED PRESCRIPTION EMBER WALKER DX I63.9 weight 162 # Problem List As Of Date 03/02/2025 Noted Resolved Hyperlipidemia [E78.5] 06/06/2010 Elevated blood pressure [UWK1180] 06/06/2010 03/20/2019 Erectile dysfunction [N52.9] 06/06/2010 Cervicalgia [M54.2] 04/16/2016 Chronic right shoulder pain [M25.511, G89.29] 04/16/2016 Occlusion of left carotid artery [I65.22] 07/02/2016 Stroke (cerebrum) (HCC) [I63.9] Aneurysm (HCC) [I72.9] Essential hypertension [I10] 06/25/2017 Anxiety [F41.9] 09/04/2017 Chronic insomnia [F51.04] 04/04/2018 Right hemiplegia (HCC) [G81.91] 04/30/2018 Sinus bradycardia [R00.1] 03/20/2019 Dysphasia [R47.02] Coronary artery disease involving [place] matos*04/02/2021 Paroxysmal atrial fibrillation (HCC) [I48.0] 04/03/2021 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 Normal [facility] CNPNon 02-18-2025 CNPN Telephone (FAMPWS) AFSHIN ZEE ([id number]) 1955 M Date Time Provider Department 02/18/25 JACI ARROYO [facility] During your visit today, we recorded the following information about you: Milan Brunson RN 02/18/2025 2:46 PM Signed Faxed recent pcp ov notes to [facility], per request. Confirmation received. Reports [facility] informed her patient could move into [facility] in 1-2 weeks but they would need [...] (FLONASE) 50 mcg/actuation nasal spray Use 1 Premium in each nostril two times a day. [...] foot brace for right leg. Send to [email or web address]. Dx: I63.9 - COMPOUNDED PRESCRIPTION EMBER WALKER DX I63.9 weight 162 # Problem List As Of Date 02/18/2025 Noted Resolved Hyperlipidemia [E78.5] 06/06/2010 Elevated blood pressure [XCS1839] 06/06/2010 03/20/2019 Erectile dysfunction [N52.9] 06/06/2010 Cervicalgia [M54.2] 04/16/2016 Chronic right shoulder pain [M25.511, G89.29] 04/16/2016 Occlusion of left carotid artery [I65.22] 07/02/2016 Stroke (cerebrum) (HCC) [I63.9] Aneurysm (HCC) [I72.9] Essential hypertension [I10] 06/25/2017 Anxiety [F41.9] 09/04/2017 Chronic insomnia [F51.04] 04/04/2018 Right hemiplegia (HCC) [G81.91] 04/30/2018 Sinus bradycardia [R00.1] 03/20/2019 Dysphasia [R47.02] Coronary artery disease involving [place] matos*04/02/2021 Paroxysmal atrial fibrillation (HCC) [I48.0] 04/03/2021 [...] chronic kidney (more content not included)... Normal [facility] 02-15-2025 CNPN Telephone (FAMPWS) AFSHIN ZEE ([id number]) 1955 M Date Time Provider Department 02/15/25 [...] appt: 01/31/25 is requesting rx go to [facility] in [facility]. Call when this has been done. JAVI [...] (FLONASE) 50 mcg/actuation nasal spray Use 1 Premium in each nostril two times a day. [...] foot brace for right leg. Send to [email or web address]. Dx: I63.9 - COMPOUNDED PRESCRIPTION EMBER WALKER DX I63.9 weight 162 # Problem List As Of Date 02/15/2025 Noted Resolved Hyperlipidemia [E78.5] 06/06/2010 Elevated blood pressure [FKJ5660] 06/06/2010 03/20/2019 Erectile dysfunction [N52.9] 06/06/2010 Cervicalgia [M54.2] 04/16/2016 Chronic right shoulder pain [M25.511, G89.29] 04/16/2016 Occlusion of left carotid artery [I65.22] 07/02/2016 Stroke (cerebrum) (HCC) [I63.9] Aneurysm (HCC) [I72.9] Essential hypertension [I10] 06/25/2017 Anxiety [F41.9] 09/04/2017 Chronic insomnia [F51.04] 04/04/2018 Right hemiplegia (HCC) [G81.91] 04/30/2018 Sinus bradycardia [R00.1] 03/20/2019 Dysphasia [R47.02] Coronary artery disease involving [place] matos*04/02/2021 Paroxysmal atrial fibrillation (HCC) [I48.0] 04/03/2021 Aphasia as late effect of cerebrovascular accid*05/10/2022 Bacterial pneumonia [J15.9] 11/17/2022 03/12/2023 Tr (more content not included)... Normal [facility] CNPN Telephone (PEDSWS) AFSHIN ZEE ([id number]) 1955 M Date Time Provider Department 02/15/25 JACI ARROYO [facility] During your visit today, we recorded the following information about you: Karlee Delarosa 02/15/2025 8:32 AM Signed Patient called in and asked that a nurse of Dr Johansen please call her back LUCÍA. There is a question regarding a medication that [facility] has. Please call spouse back at [phone]. Thank you! Rody Ingram RN 02/17/2025 10:45 [...] (FLONASE) 50 mcg/actuation nasal spray Use 1 Premium in each nostril two times a day. [...] foot brace for right leg. Send to [email or web address]. Dx: I63.9 - COMPOUNDED PRESCRIPTION EMBER WALKER DX I63.9 weight 162 # Problem List As Of Date 02/15/2025 Noted Resolved Hyperlipidemia [E78.5] 06/06/2010 Elevated blood pressure [MWL5447] 06/06/2010 03/20/2019 Erectile dysfunction [N52.9] 06/06/2010 Cervicalgia [M54.2] 04/16/2016 Chronic right shoulder pain [M25.511, G89.29] 04/16/2016 Occlusion of left carotid artery [I65.22] 07/02/2016 Stroke (cerebrum) (HCC) [I63.9] Aneurysm (HCC) [I72.9] Essential hypertension [I10] 06/25/2017 Anxiety [F41.9] 09/04/2017 Chronic insomnia [F51.04] 04/04/2018 Right hemiplegia (HCC) [G81.91] 04/30/2018 Sinus bradycardia [R00.1] 03/20/2019 Dysphasia [R47.02] Coronary artery disease involving [place] matos*04/02/2021 Paroxysmal atrial fibrillation (HCC) [I48.0] 04/03/2021 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 [facility]FAMPWS[facility] AFSHIN ZEE ([id number]) 1955 M Date Time Provider Department 02/03/25 [facility] During your visit today, we recorded [...] Pregabalin done when [facility] was in [facility]. Khris Gutierrez RN Allergies As of Date: [...] Fully Assessed Reason for Visit: Patient Question [8492] Prescriptions as of 02/03/2025 - baclofen 10 [...] (FLONASE) 50 mcg/actuation nasal spray Use 1 Premium in each nostril two times a day. [...] foot brace for right leg. Send to [email or web address]. Dx: I63.9 - COMPOUNDED PRESCRIPTION EMBER WALKER DX I63.9 weight 162 # Problem List As Of Date 02/03/2025 Noted Resolved Hyperlipidemia [E78.5] 06/06/2010 Elevated blood pressure [WQF1159] 06/06/2010 03/20/2019 Erectile dysfunction [N52.9] 06/06/2010 Cervicalgia [M54.2] 04/16/2016 Chronic right shoulder pain [M25.511, G89.29] 04/16/2016 Occlusion of left carotid artery [I65.22] 07/02/2016 Stroke (cerebrum) (HCC) [I63.9] Aneurysm (HCC) [I72.9] Essential hypertension [I10] 06/25/2017 Anxiety [F41.9] 09/04/2017 Chronic insomnia [F51.04] 04/04/2018 Right hemiplegia (HCC) [G81.91] 04/30/2018 Sinus bradycardia [R00.1] 03/20/2019 Dysphasia [R47.02] Coronary artery disease involving [place] matso*04/02/2021 Paroxysmal atrial fibrillation (HCC) [I48.0] 04/03/2021 Aphasia [...] whe*06/11/2023 Pr (more content not included)... Normal [facility] CNOVon 02-01-2025 CNOV Office Visit (CARDDANIEL ) AFSHIN ZEE ([id number]) 1955 M Date Time Provider Department 02/01/25 9:40 AM ROBIN JOHANSEN During your visit today, we recorded the following information about you: Pulse Respiration Blood pressure Weight 43/minute 16/minute 122/80 89.8 kg Height 1.778 m Robin Johansen MD 02/01/2025 12:09 PM Signed [facility]IOLOGY Cardiology (Yesika Mccoywjames Cardona) [address] [facility] [id number] OUTPATIENT VISIT DATE 02/01/2025 PRIMARY CARE PHYSICIAN: Jaci Arroyo [address] [place] [address] HISTORY OF PRESENT ILLNESS: Mr. 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) Tobacco abuse PAST SURGICAL HISTORY Procedure Laterality Date ANKLE SURGERY HX Right 08/07/2023 Dr. Kim. Right ankle ORIF due to fracture CABG CONSULT 10/30/2016 multi vessel COLONOSCOPY SCREENING 04/10/2023 EGD [facility] SPEC VARICIES INJ 04/11/2023 EGD [facility] SPEC VARICIES INJ 04/10/2023 HEART CATHETERIZATION 09/17/2016 [...] Problem Relation Age of Onset Heart Mother OR in her 70s, pacemaker Diabetes Mother Stroke [...] day fo (more content not included)... Normal [facility] CNOVon 01-14-2025 [facility] Office Visit (FAMPWS ) AFSHIN ZEE ([id number]) 1955 M Date Time Provider Department 01/14/25 2:20 PM JACI ARROYOWS During your visit today, we recorded the following information about you: Pulse Respiration Blood pressure Weight 52/minute 18/minute 124/74 87.1 kg Jaci Arroyo MD 01/14/2025 5:11 PM Signed Chief Complaint Patient presents with: [facility] discharge: [facility] HPI Afshin Zee is a 69 year old male who presents here today for shelter discharge follow up. Here with . Pt d/c from [facility] on 01/13/25 for frequent falls and [...] multi vessel COLONOSCOPY SCREENING 04/10/2023 EGD [facility] SPEC VARICIES INJ 04/11/2023 EGD [facility] SPEC VARICIES INJ 04/10/2023 HEART CATHETERIZATION 09/17/2016 PAST SURGICAL HISTORY OF 2017 Aneurysm and stent surgery related to stroke TRACHEOSTOMY HX Family History FAMILY HISTORY Problem Relation Age of Onset Heart Mother OR in her 70s, pacemaker Diabetes Mother Stroke [...] (FLONASE) 50 mcg/actuation nasal spray Use 1 Premium in each nostril two times a day. [...] daily. amiodarone (more content not included)... Normal [facility]20[facility]) AFSHIN ZEE ([id number]) 1955 M Date Time Provider Department 12/26/24 JACI ARROYO [facility] During your visit today, we recorded the following information about you: Monica Cruz MA 12/26/2024 9:45 AM Signed [facility] sent fax asking for Medical Records on pt. Date of service needed is 07/30/24 regarding his incontinence. I do not see that pt was seen in office that day. Please review. [place] fax # [phone] JIMI Jay Rilee, MA 01/07/2025 10:57 AM Signed Office received new CMN for incontinence supplies. Routed to PCP's desk. Once complete fax back to [phone]. JIMI Blas Rilee, MA 01/07/2025 12:04 PM [...] (FLONASE) 50 mcg/actuation nasal spray Use 1 Premium in each nostril two times a day. [...] foot brace for right leg. Send to [email or web address]. Dx: I63.9 - COMPOUNDED PRESCRIPTION EMBER WALKER DX I63.9 weight 162 # Problem List As Of Date 12/26/2024 Noted Resolved Hyperlipidemia [E78.5] 06/06/2010 Elevated blood pressure [ZQF0490] 06/06/2010 03/20/2019 Erectile dysfunction [N52.9] 06/06/2010 Cervicalgia [M54.2] 04/16/2016 Chronic right shoulder pain [M25.511, G89.29] 04/16/2016 Occlusion of left carotid artery [I65.22] 07/02/2016 Stroke (cerebrum) (HCC) [I63.9] Aneurysm (HCC) [I72.9] Essential (more content not included)... Normal [facility] CNOVon 12-03-2024 [facility] ([id number]) 1955 M Date Time Provider Department 12/03/24 1:20 PM CONSUELO FAROOQ During your visit today, we recorded the following information about you: Pulse Blood pressure Weight 59/minute 121/54 88.5 kg Consuelo Farooq APRN.LAUNDRY OPERATOR WASH ROOM 12/03/2024 1:02 PM Signed Chief Complaint Patient [...] Problem Relation Age of Onset Heart Mother OR in her 70s, pacemaker Diabetes Mother Stroke [...] (FLONASE) 50 mcg/actuation nasal spray Use 1 Premium in each nostril two times a day. [...] 20 mg (more content not included)... Normal [facility] 12-03-2024 [facility] Telephone (LIOWS) AFSHIN ZEE ([id number]) 1955 M Date Time Provider Department 12/03/24 JACI ARROYO [facility] During your visit today, we recorded [...] (FLONASE) 50 mcg/actuation nasal spray Use 1 Premium in each nostril two times a day. [...] foot brace for right leg. Send to [email or web address]. Dx: I63.9 - COMPOUNDED PRESCRIPTION EMBER WALKER DX I63.9 weight 162 # Problem List As Of Date 12/03/2024 Noted Resolved Hyperlipidemia [E78.5] 06/06/2010 Elevated blood pressure [[id number]] 06/06/2010 03/20/2019 Erectile dysfunction [N52.9] 06/06/2010 Cervicalgia [M54.2] 04/16/2016 Chronic right shoulder pain [M25.511, G89.29] 04/16/2016 Occlusion of left carotid artery [I65.22] 07/02/2016 Stroke (cerebrum) (HCC) [I63.9] Aneurysm (HCC) [I72.9] Essential hypertension [I10] 06/25/2017 Anxiety [F41.9] 09/04/2017 Chronic insomnia [F51.04] 04/04/2018 Right he (more content not included)... [facility] AF[facility]IN [facility] ([id number]) 1955 M Date Time Provider Department 12/02/24 [facility] During your visit today, we recorded the following information about you: Jayde Laughlin RN 12/02/2024 9:03 AM Signed Cathy from [facility] calls and reports that [facility] [place] [facility] placement. Jayde Laughlin RN Allergies [...] (FLONASE) 50 mcg/actuation nasal spray Use 1 Premium in each nostril two times a day. [...] foot brace for right leg. Send to [email or web address]. Dx: I63.9 - COMPOUNDED PRESCRIPTION EMBER WALKER DX I63.9 weight 162 # Problem List As Of Date 12/02/2024 Noted Resolved Hyperlipidemia [E78.5] 06/06/2010 Elevated blood pressure [[id number]] 06/06/2010 03/20/2019 Erectile dysfunction [N52.9] 06/06/2010 Cervicalgia [M54.2] 04/16/2016 Chronic right shoulder pain [M25.511, G89.29] 04/16/2016 Occlusion of left carotid artery [I65.22] 07/02/2016 Stroke (cerebrum) (HCC) [I63.9] Aneurysm (HCC) [I72.9] Essential hypertension [I10] 06/25/2017 Anxiety [F41.9] 09/04/2017 Chronic insomnia [F51.04] 04/04/2018 Right hemiplegia (HCC) [G81.91] 04/30/2018 Bradycardia [R00.1] 03/20/2019 Dysphasia [R47.02] Coronary artery disease involving unalakleet matos*04/02/2021 Paroxysmal atrial fibrillation (HCC) [I48.0] 04/03/2021 Aphasia as late effect of cerebrovascular accid*05/10/2022 Bacterial pneumonia [J15.9] more content not included)... [facility] (FAMWS) AFSHIN ZEE ([id number]) 1955 M Date Time Provider Department 11/27/24 [facility] During your visit today, we recorded [...] bound and is living permanent at [facility] in [place]. Please fax PA to attn: [employer], [employer] [place]. . Plan ID # [id number]. Medicaid # [id number]. Phone # for [facility]: [phone] It will take 14 calendar days for PA to get approved. Pt weighs 197# and is 5'10 tall. DME's to send order to: [employer]. . In [place], [place] Or: [employer] has 3 locations: all in [place]: 2 in [place]. Or: 1 in [place]. These DME's will ship the power wheelchair [...] (FLONASE) 50 mcg/actuation nasal spray Use 1 Premium in each nostril two times a day. [...] foot brace for right leg. Send to [email or web address]. Dx: I63.9 - COMPOUNDED PRESCRIPTION EMBER WALKER DX I63.9 weight 162 # Problem List As Of Date 11/27/2024 Noted Resolved Hyperlipidemia [E78.5] 06/06/2010 Elevated blood pressure [PHL7815] 06/06/2010 03/20/2019 Erectile dysfunction [N52.9] 06/06/2010 Cervicalgia [M54.2] 04/16/2016 Chronic right shoulder pain [M25.511, G89.29] 04/16/2016 Occlusion of left carotid artery [I65.22] 07/02/2016 Stroke (cerebrum) (HCC) [I63.9] Aneurysm (HCC (more content not included)... Normal [facility] CNOVon 11-10-2024 CNOV Office Visit (VASSWS ) AFSHIN ZEE ([id number]) 1955 M Date Time Provider Department 11/10/24 4:00 PM DEANNE CRUZ VASSWS During your visit today, we recorded the following information about you: Pulse Blood pressure 50/minute 121/67 Deanne Cruz DO 11/20/2024 12:55 PM Signed [facility]PART[facility] OF VASCULAR SURGERY OUTPATIENT VISIT TYPE [...] multi vessel COLONOSCOPY SCREENING 04/10/2023 EGD [facility] SPEC VARICIES INJ 04/11/2023 EGD [facility] SPEC VARICIES INJ 04/10/2023 HEART CATHETERIZATION 09/17/2016 [...] (FLONASE) 50 mcg/actuation nasal spray Use 1 Premium in each nostril two times a day. [...] once daily (more content not included)... Normal [facility] US CAROTID ARTERIES CRISTIANO VAS LABon 11-10-2024 US CAROTID ARTERIES CRISTIANO VAS LAB Non-Invasive Vascular Laboratory [facility] Carotid Duplex Bilateral/Complete Date of service/time: 11/10/2024 [...] interpretation criteria are used as recommended by [facility]. When compared with the prior [...] Interpreting physician: GINO Singleton DO Final CC [employer] : [id number] See Link below for Image Normal [facility] Veda 10-22-2024 VINCENT Telephone (TIMWS) AFSHIN ZEE ([id number]) 1955 M Date Time Provider Department 10/22/24 KIMO MCGRATH During your visit today, we recorded the following information about you: Lacy Rosas MA 10/22/2024 3:01 PM Signed Patient's calling and states her has recently been [facility]. States his oxygen levels have been good [...] (FLONASE) 50 mcg/actuation nasal spray Use 1 Premium in each nostril two times a day. [...] foot brace for right leg. Send to [email or web address]. Dx: I63.9 - COMPOUNDED PRESCRIPTION EMBER WALKER DX I63.9 weight 162 # Problem List As Of Date 10/22/2024 Noted Resolved Hyperlipidemia [E78.5] 06/06/2010 Elevated blood pressure [[id number]] 06/06/2010 03/20/2019 Erectile dysfunction [N52.9] 06/06/2010 Cervicalgia [M54.2] 04/16/2016 Chronic right shoulder pain [M25.511, G89.29] 04/16/2016 Occlusion of left carotid artery [I65.22] 07/02/2016 Stroke (cerebrum) (HCC) [I63.9] Aneurysm (HCC) [I72.9] Essential hypertension [I10] 06/25/2017 Anxiety [F41.9] 09/04/2017 Chronic insomnia [F51.04] 04/04/2018 Right hemiplegia (HCC) [G81.91] 04/30/2018 Bradycardia [R00.1] 03/20/2019 Dysphasia [R47.02] Coronary artery disease involving unalakleet matos*04/02/2021 Paroxysmal atrial fibrillation (HCC) [I48.0] 04/03/2021 Aphasia as late effect of cerebrovascular acc (more content not included)... Normal [facility] Veda 10-20-20[facility] AFSHIN ZEE ([id number]) 1955 M Date Time Provider Department 10/20/24 EARL ELISE During your visit today, we recorded the following information about you: Lacy Rosas MA 10/20/2024 3:51 PM Signed Patient's calling and states had the nighttime oxygen testing done and asking if the office has received any results? Deanne Neville LPN 10/21/2024 10:34 AM Signed Spoke with Renetta at [facility]. [place] is needing a dx code for upload. Fax received for [facility] [facility] signature. On provider's desk for review. JAVI Gibbons Kathleen, LPN 10/21/2024 4:07 PM Signed Fax returned to [facility]. JAVI Gibbons Kathleen, LPN 10/22/2024 1:59 PM Signed Results received from [facility] and scanned to chart. Patient with continued desaturations below 88% for >50minutes on 4L. Detailed message left on voicemail for patient and spouse to continue 6LPM Deanne Nveille LPN Allergies As of Date: 10/20/2024 Noted [...] (FLONASE) 50 mcg/actuation nasal spray Use 1 Premium in each nostril two times a day. [...] foot brace for right leg. Send to [email or web address]. Dx: I63.9 - COMPOUNDED PRESCRIPTION EMBER WALKER DX I63.9 weight 162 # Problem List As Of Date 10/20/2024 Noted Resolved Hyperlipidemia [E78.5] 06/06/2010 Elevated blood pressure [[id number]] 06/06/2010 03/20/2019 Erectile dysfunction [N52.9] 06/06/2010 Cervicalgia [M54.2] 04/16/2016 Chronic right shoulder pain [M25.511, G89.29] 04/16/2016 Occlusion of left carotid artery [I65.22] 07/02/2016 Stroke (cerebrum) (HCC) [I63.9] Aneurysm (HCC) [I72.9] Essential hypertension [I10] 06/25/2017 Anxiety [F41 (more content not included)... Normal [facility] Veda 10-16-2024 ESTELLAN Telephone (NE50MN) AFSHIN ZEE ([id number]) 1955 M Date Time Provider Department 10/16/24 YESSI VALDEZ NE50MN During your visit today, we recorded the following information about you: Sonya Hidalgo 10/16/2024 1:19 PM Signed Medication Concern Person Calling Eli Zee, Name of medication Lyrica 75 mg Concern with medication Mrs. Zee lowered the dose herself d/t frequent falls. Patient is being discharged and going to [facility] [place] [place]. Mrs. Zee asks to be given a script for Lyrica 50 mg BID. If approved, send to [facility] in [place], [place] [phone]. Patient of Mildred Dillard RN 10/16/2024 1:41 PM Signed I spoke with , who stated Afshin continues to have frequent falls due to Lyrica 75/[address] [facility] due to a fall. He will be discharge today to [facility] [place] [place] stated he did not experience falls when Lyrica was 50/50 Mrs. Zee asks to be given a script for Lyrica 50 mg BID. If approved, send to [facility] in [place], [place] [phone]. DINAE Beatty Ann, PA-C 10/16/2024 1:50 PM Signed [...] 10/16/2024 2:09 PM Signed I spoke with Eil, she agreed with recommendations. Mildred Adame RN [...] (FLONASE) 50 mcg/actuation nasal spray Use 1 Premium in each nostril two times a day. [...] tablet t (more content not included)... Normal [facility] .GFRon 10-15-2024 Estimated Glomerular Filtration Rate 59 ml/min/1.73sqm Normal [facility] Comment on above: Result Comment: Stages of [...] Performed By: #### G , BMP #### [address] [address] BMPon 10-15-2024 BUN/Creatinine Ratio 11 ratio Normal 7-27 [facility] Comment on above: Performed By: #### Deirdre HOLLINS, BMP #### [address] [address] Calcium [Mass/Vol] 8.0 mg/dL Low 8.4-10.2 [facility] Comment on above: Performed By: #### Deirdre HOLLINS, BMP #### [address] [address] Chloride [Moles/Vol] 107 mmol/L Normal 98-107 [facility] Comment on above: Performed By: #### Deirdre HOLLINS, BMP #### [address] [address] CO2 [Moles/Vol] 29 mmol/L Normal 23-31 [facility] Comment on above: Performed By: #### Deirdre HOLLINS, BMP #### [address] [address] Creatinine [Mass/Vol] 1.31 mg/dL High 0.70-1.30 [facility] Comment on above: Result Comment: Test ing performed on Siemens Dimension EXL analyzer using a modified kinetic Omid technique. Performed By: #### Deirdre HOLLINS, BMP #### [address] [address] Electrolyte Balance 6.0 mEq/L Normal 4.0-15.0 [facility] Comment on above: Performed By: #### Deirdre HOLLINS, BMP #### [address] [address] Glucose [Mass/Vol] 99 mg/dL Normal 80-115 [facility] Comment on above: Performed By: #### Deirdre HOLLINS, BMP #### [address] [address] Potassium [Moles/Vol] 4.0 mmol/L Normal 3.5-5.1 [facility] Comment on above: Performed By: #### Deirdre HOLLINS, BMP #### [address] [address] Sodium [Moles/Vol] 142 mmol/L Normal 136-145 [facility] Comment on above: Performed By: #### G FR, BMP #### [address] [address] Urea nitrogen [Mass/Vol] 15 mg/dL Normal 7-18 [facility] Comment on above: Performed By: #### G FR, BMP #### [address] [address] MGon 10-15-2024 Magnesium [Mass/Vol] 2.1 mg/dL Normal 1.8-2.4 [facility] Comment on above: Performed By: #### G , MG, BMP #### [address] [address] .Auto Diffon 10-14-2024 Basophil, Absolute 0.1 10 3/mcL Normal 0.0-0.2 [facility] Comment on above: Performed By: #### Casey DIAZ UA #### [address] [address] Basophils/100 WBC (Bld) 0.8 % Normal 0.0-2.5 [facility] Comment on above: Performed By: #### Casey DIAZ UA #### [address] [address] Eosinophil, Absolute 0.6 10 3/mcL Normal 0.0-0.7 [facility] Comment on above: Performed By: #### Casey AMIJEFF UA #### [address] [address] Eosinophils/100 WBC (Bld) 6.2 % Normal 0.0-7.0 [facility] Comment on above: Performed By: #### Casey DIAZ UA #### [address] [address] Lymphocyte, Absolute 1.9 10 3/mcL Normal 0.9-4.3 [facility] Comment on above: Performed By: #### U AMICAO, UA #### [address] [address] Lymphocytes/100 WBC (Bld) 20.2 % Normal 20.0-40.0 [facility] Comment on above: Performed By: #### U KACEYCAO, UA #### [address] [address] Monocyte, Absolute 1.5 10 3/mcL High 0.1-1.4 [facility] Comment on above: Performed By: #### U KACEYCAO, UA #### [address] [address] Monocytes/100 WBC (Bld) 15.0 % High 2.0-13.0 [facility] Comment on above: Performed By: #### Casey DIAZ UA #### [address] [address] Neutrophils/100 WBC (Bld) 57.8 % Normal 50.0-75.0 [facility] Comment on above: Performed By: #### Casey DIAZ, UA #### [address] [address] .GFRon 10-14-2024 Estimated Glomerular Filtration Rate 54 ml/min/1.73sqm Normal [facility] Comment on above: Result Comment: Stages of [...] Performed By: #### U KACEYCADameon UA #### [address] [address] .NEUABSon 10-14-2024 Neutrophil, Absolute 5.6 10 3/mcL Normal 2.3-8.1 [facility] Comment on above: Performed By: #### FABI MEZA #### [address] [address] CBCon 10-14-2024 Erythrocyte distribution width (RBC) [Ratio] 13.5 % Normal 11.5-15.5 [facility] Comment on above: Performed By: #### FABI MEZA #### [address] [address] Hematocrit (Bld) [Volume fraction] 36.5 % Low 40.0-52.0 [facility] Comment on above: Performed By: #### FABI MEZA #### [address] [address] Hgb 12.4 G/dL Low 13.0-17.5 [facility] Comment on above: Performed By: #### FABI MEZA #### [address] [address] MCH (RBC) [Entitic mass] 31.6 pg Normal 27.0-33.0 [facility] Comment on above: Performed By: #### FABI MEZA #### [address] [address] MCHC 34.1 G/dL Normal 32.0-36.0 [facility] Comment on above: Performed By: #### FABI MEZA #### [address] [address] MCV (RBC) [Entitic vol] 92.6 fL Normal 81.0-100.0 [facility] Comment on above: Performed By: #### FABI MEZA #### [address] [address] Platelet 197 10 3/mcL Normal 150-450 [facility] Comment on above: Performed By: #### FABI MEZA #### [address] [address] Platelet mean volume (Bld) [Entitic vol] 10.1 fL Normal 6.4-10.5 [facility] Comment on above: Performed By: #### FABI MEZA #### [address] [address] RBC 3.94 10 6/mcL Low 4.50-6.00 [facility] Comment on above: Performed By: #### FABI MEZA #### [address] [address] WBC 9.6 10 3/mcL Normal 4.5-10.8 [facility] Comment on above: Performed By: #### FABI MEZA #### [address] [address] CMPon 10-14-2024 Albumin Level 3.0 G/dL Low 3.4-4.8 [facility] Comment on above: Performed By: #### FABI MEZA #### [address] [address] Albumin/Globulin [Mass ratio] 1.0 {ratio} Low 1.1-2.5 [facility] Comment on above: Performed By: #### FABI MEZA #### [address] [address] ALP [Catalytic activity/Vol] 101 U/L Normal 40-135 [facility] Comment on above: Performed By: #### FABI MEZA #### [address] [address] ALT [Catalytic activity/Vol] 19 U/L Normal 16-63 [facility] Comment on above: Performed By: #### FABI MEZA #### [address] [address] AST [Catalytic activity/Vol] 12 U/L Normal 10-40 [facility] Comment on above: Performed By: #### FABI MEZA #### [address] [address] Bili Total 0.7 mg/dL Normal 0.2-1.0 [facility] Comment on above: Result Comment: Use of this assay is not recommended for patients undergoing treatment with eltrombopag due to the potential for falsely elevated results. Performed By: #### Casey DIAZ UA #### [address] [address] BUN/Creatinine Ratio 13 ratio Normal 7-27 [facility] Comment on above: Performed By: #### Casey DIAZ UA #### [address] [address] Calcium [Mass/Vol] 8.0 mg/dL Low 8.4-10.2 [facility] Comment on above: Performed By: #### Casey DIAZ UA #### [address] [address] Chloride [Moles/Vol] 110 mmol/L High 98-107 [facility] Comment on above: Performed By: #### Casey DIAZ UA #### [address] [address] CO2 [Moles/Vol] 29 mmol/L Normal 23-31 [facility] Comment on above: Performed By: #### Casey DIAZ UA #### [address] [address] Creatinine [Mass/Vol] 1.41 mg/dL High 0.70-1.30 [facility] Comment on above: Result Comment: Test ing performed on Siemens Dimension EXL analyzer using a modified kinetic Omid technique. Performed By: #### Casey DIAZ UA #### [address] [address] Electrolyte Balance 4.0 mEq/L Normal 4.0-15.0 [facility] Comment on above: Performed By: #### Casey DIAZ UA #### [address] [address] Globulin 3.0 G/dL Normal 1.5-3.8 [facility] Comment on above: Performed By: #### U JOE, UA #### [id number] [place], [place] [address] Glucose [Mass/Vol] 86 mg/dL Normal 80-115 [facility] Comment on above: Performed By: #### Casey DIAZ, UA #### [id number] [place], [place] [address] Potassium [Moles/Vol] 3.9 mmol/L Normal 3.5-5.1 [facility] Comment on above: Performed By: #### U JOE, UA #### [id number] [place], [place] [address] Sodium [Moles/Vol] 143 mmol/L Normal 136-145 [facility] Comment on above: Performed By: #### Casey DIAZ, UA #### [address] [address] Total Protein 6.0 G/dL Low 6.4-8.2 [facility] Comment on above: Performed By: #### Casey DIAZ, UA #### [address] [address] Urea nitrogen [Mass/Vol] 18 mg/dL Normal 7-18 [facility] Comment on above: Performed By: #### Casey DIAZ, UA #### [id number] [place], [place] [address] Veda 10-14-20[facility] AFSHIN ZEE ([id number]) 1955 M Date Time Provider Department 10/14/24 [facility] During your visit today, we recorded the following information about you: Loida Vazquez LPN 10/14/2024 1:14 PM Signed Patient Eli calling asking for an order for right leg brace to be faxed to [email or web address]. She said it is to prevent him from dragging his foot, molded brace, black in color goes down in his shoe and goes up to his knee fastens with velcro. Sounds like a custom type AFO. Pending order. would like notified when order is faxed. Please advise Jessie Harmon APRN.[employer] [facility] 10/14/2024 2:49 PM Signed The following approved medication requests have been transmitted electronically. Requested Prescriptions Signed Prescriptions Disp Refills Leg Brace misc 1 Each 0 Si Each as directed. RIGHT LEG BRACE (AFO TYPE) Authorizing Provider: JESSIE HARMON APRN.[employer] [facility] Order will be faxed to [facility]. Kassandra Tai LPN 10/14/2024 5:03 PM Signed [...] (FLONASE) 50 mcg/actuation nasal spray Use 1 Premium in each nostril two times a day. [...] by mouth (more content not included)... Normal [facility] MGon 10-14-2024 Magnesium [Mass/Vol] 2.2 mg/dL Normal 1.8-2.4 [facility] Comment on above: Performed By: #### U AMICAO, UA #### [address] [address] UAon 10-14-2024 Color (U) Yellow Normal [facility] Comment on above: Performed By: #### G FR, MG, BMP #### [address] [address] Glucose (U) [Mass/Vol] Negative Normal Negative [facility] Comment on above: Performed By: #### G FR, MG, BMP #### [address] [address] Ketones Ql (U) Negative Normal Negative [facility] Comment on above: Performed By: #### G FR, MG, BMP #### [address] [address] UA Appear Clear Normal Clear [facility] Comment on above: Performed By: #### G FR, MG, BMP #### [address] [address] UA Blood Negative Normal Negative [facility] Comment on above: Performed By: #### G FR, MG, BMP #### [address] [address] UA Leuk Est Negative Normal Negative [facility] Comment on above: Performed By: #### G FR, MG, BMP #### [address] [place] [address] UA Nitrite Negative Normal Negative [facility] Comment on above: Performed By: #### G FR, MG, BMP #### [address] [place] [address] UA pH 5.5 Normal 5.0 - 8.0 [facility] Comment on above: Performed By: #### G FR, MG, BMP #### [address] [place] [address] UA Protein Negative Normal Negative [facility] Comment on above: Performed By: #### G FR, MG, BMP #### [address] [place] [address] UA Spec Grav 1.015 Normal 1.015-1.025 [facility] Comment on above: Performed By: #### G FR, MG, BMP #### [place] [address] UA Specimen Type Clean Catch Normal [facility] Comment on above: Performed By: #### G FR, MG, BMP #### [address] [place] [address] UA Urobilinogen 0.2 E.U./dL Normal 0.2-1.0 [facility] Comment on above: Performed By: #### G FR, MG, BMP #### [address] [place] [address] Urobilinogen (U) [Mass/Vol] Negative Normal Negative [facility] Comment on above: Performed By: #### G FR, MG, BMP #### [address] [address] .Auto Diffon 10-13-2024 Basophil, Absolute 0.1 10 3/mcL Normal 0.0-0.2 [facility] Comment on above: Performed By: #### G FR, MG, BMP #### [address] [address] Basophils/100 WBC (Bld) 0.8 % Normal 0.0-2.5 [facility] Comment on above: Performed By: #### G FR, MG, BMP #### [address] [address] Eosinophil, Absolute 0.7 10 3/mcL Normal 0.0-0.7 [facility] Comment on above: Performed By: #### G FR, MG, BMP #### [address] [address] Eosinophils/100 WBC (Bld) 6.6 % Normal 0.0-7.0 [facility] Comment on above: Performed By: #### G FR, MG, BMP #### [address] [address] Lymphocyte, Absolute 2.0 10 3/mcL Normal 0.9-4.3 [facility] Comment on above: Performed By: #### G FR, MG, BMP #### [address] [address] Lymphocytes/100 WBC (Bld) 18.2 % Low 20.0-40.0 [facility] Comment on above: Performed By: #### G FR, MG, BMP #### [address] [address] Monocyte, Absolute 1.3 10 3/mcL Normal 0.1-1.4 [facility] Comment on above: Performed By: #### G FR, MG, BMP #### [address] [address] Monocytes/100 WBC (Bld) 11.4 % Normal 2.0-13.0 [facility] Comment on above: Performed By: #### G FR, MG, BMP #### [address] [address] Neutrophils/100 WBC (Bld) 63.0 % Normal 50.0-75.0 [facility] Comment on above: Performed By: #### G FR, MG, BMP #### [address] [address] .GFRon 10-13-2024 Estimated Glomerular Filtration Rate 49 ml/min/1.73sqm Normal [facility] Comment on above: Result Comment: Stages of [...] By: #### G FR, MG, BMP #### [address] [address] .MDWon 10-13-2024 Monocyte Distribution Width 18.74 Normal 0.00-20.00 [facility] Comment on above: Result Comment: For ED adult patients suspected of sepsis, MDW<=20.0 does not rule out sepsis or risk of sepsis Performed By: #### G FR, MG, BMP #### [address] [address] .NEUABSon 10-13-2024 Neutrophil, Absolute 7.0 10 3/mcL Normal 2.3-8.1 [facility] Comment on above: Performed By: #### G FR, MG, BMP #### [id number] [place], [place] [address] BMPon 10-13-2024 BUN/Creatinine Ratio 12 ratio Normal 7-27 [facility] Comment on above: Performed By: #### G FR, MG, BMP #### [address] [address] [address] Calcium [Mass/Vol] 8.5 mg/dL Normal 8.4-10.2 [facility] Comment on above: Performed By: #### G FR, MG, BMP #### [address] [address] Chloride [Moles/Vol] 104 mmol/L Normal 98-107 [facility] Comment on above: Performed By: #### G FR, MG, BMP #### [address] [address] CO2 [Moles/Vol] 29 mmol/L Normal 23-31 [facility] Comment on above: Performed By: #### G FR, MG, BMP #### [address] [address] Creatinine [Mass/Vol] 1.52 mg/dL High 0.70-1.30 [facility] Comment on above: Result Comment: Test ing performed on Siemens Dimension EXL analyzer using a modified kinetic Omid technique. Performed By: #### G FR MG, BMP #### [address] [address] Electrolyte Balance 4.0 mEq/L Normal 4.0-15.0 [facility] Comment on above: Performed By: #### Deirdre FR, MG, BMP #### [address] [address] Glucose [Mass/Vol] 86 mg/dL Normal 80-115 [facility] Comment on above: Performed By: #### G FR, MG, BMP #### [address] [address] Potassium [Moles/Vol] 4.8 mmol/L Normal 3.5-5.1 [facility] Comment on above: Performed By: #### G FR, MG, BMP #### [address] [address] Sodium [Moles/Vol] 137 mmol/L Normal 136-145 [facility] Comment on above: Performed By: #### Deirdre HOLLINS MG, BMP #### [place] [id number] Urea nitrogen [Mass/Vol] 19 mg/dL High 7-18 [facility] Comment on above: Performed By: #### Deirdre HOLLINS MG, BMP #### [place] [id number] CBCon 10-13-2024 Erythrocyte distribution width (RBC) [Ratio] 13.8 % Normal 11.5-15.5 [facility] Comment on above: Performed By: #### Deirdre HOLLINS MG, BMP #### [place] [id number] Hematocrit (Bld) [Volume fraction] 40.0 % Normal 40.0-52.0 [facility] Comment on above: Performed By: #### Deirdre HOLLINS MG, BMP #### [place] [id number] Hgb 13.7 G/dL Normal 13.0-17.5 [facility] Comment on above: Performed By: #### Deirdre HOLLINS MG, BMP #### [place] [id number] MCH (RBC) [Entitic mass] 31.7 pg Normal 27.0-33.0 [facility] Comment on above: Performed By: #### Deirdre HOLLINS MG, BMP #### [place] [id number] MCHC 34.3 G/dL Normal 32.0-36.0 [facility] Comment on above: Performed By: #### Deirdre HOLLINS MG, BMP #### [place] [id number] MCV (RBC) [Entitic vol] 92.2 fL Normal 81.0-100.0 [facility] Comment on above: Performed By: #### Deirdre HOLLINS MG, BMP #### [place] [id number] Platelet 215 10 3/mcL Normal 150-450 [facility] Comment on above: Performed By: #### G FR, MG, BMP #### [place] [id number] [place], [place] [address] Platelet mean volume (Bld) [Entitic vol] 9.9 fL Normal 6.4-10.5 [facility] Comment on above: Performed By: #### G FR, MG, BMP #### [place] [id number] [place], [place] [address] RBC 4.34 10 6/mcL Low 4.50-6.00 [facility] Comment on above: Performed By: #### G FR, MG, BMP #### [place] [id number] [place], [place] [address] WBC 11.2 10 3/mcL High 4.5-10.8 [facility] Comment on above: Performed By: #### G FR, MG, BMP #### [place] [address] [place], [place] [address] CT ABDOMEN/PELVIS W/O CONTRA STon 10-13-2024 CT [...] 10/13/2024 11:28:32 PM Ordering Provider: SHARONA AVILA [facility] HEAD OR BRAIN W/O CONTRAS [...] 10/13/2024 11:13:43 PM Ordering Provider: SHARONA AVILA [facility] CT SPINE CERVICAL W/O CONTRA STon [...] 10/13/2024 11:17:19 PM Ordering Provider: SHARONA Robles [facility] CT THORAX W/O CONTRASTon CT THORAX W/O [...] 10/13/2024 11:31:02 PM Ordering Provider: SHARONA Robles [facility] 10-08-2024 [facility] Telephone (FAMPWS) FASHIN ZEE ([id number]) 1955 Date Time Provider Department 10/08/24 JACI ARROYO [facility] During your visit today, we recorded the following information about you: Milan Brunson RN 10/08/2024 12:09 PM Signed [facility]- reports [facility]. States she knows pcp is aware, and that pt had appt with [facility] yesterday, but she is required to report [...] (FLONASE) 50 mcg/actuation nasal spray Use 1 Premium in each nostril two times a day. [...] foot brace for right leg. Send to [email or web address]. Dx: I63.9 - COMPOUNDED PRESCRIPTION EMBER WALKER DX I63.9 weight 162 # Problem List As Of Date 10/08/2024 Noted Resolved Hyperlipidemia [E78.5] 06/06/2010 Elevated blood pressure [DLL8687] 06/06/2010 03/20/2019 Erectile dysfunction [N52.9] 06/06/2010 Cervicalgia [M54.2] 04/16/2016 Chronic right shoulder pain [M25.511, G89.29] 04/16/2016 Occlusion of left carotid artery [I65.22] 07/02/2016 Stroke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 out sepsis or risk of sepsis Performed By: #### U AMICAO UA #### [place] [address] .NEUABSon 09-15-2024 Neutrophil, Absolute 8.1 10 3/mcL Normal 2.3-8.1 [facility] Comment on above: Performed By: #### U AMICAO UA #### [place] [address] .Urinalysis Microscopic (AO) on 09-15-2024 UA Am Biurate Crystals 1+ /hpf Abnormal [facility] Comment on above: Performed By: #### U AMICAO, UA #### [place] [address] UA RBC None Seen Normal None Seen [facility] Comment on above: Performed By: #### U AMICAO, UA #### [place] [address] UA Squam Epithelial 0-5 Abnormal None Seen [facility] Comment on above: Performed By: #### U AMICAO, UA #### [place] [address] UA WBC 0-5 Abnormal None Seen [facility] Comment on above: Performed By: #### U AMICAO, UA #### [place] [address] BMPon 09-15-2024 BUN/Creatinine Ratio 18 ratio Normal 7-27 [facility] Comment on above: Performed By: #### U AMICAO, UA #### [address] [address] Calcium [Mass/Vol] 9.4 mg/dL Normal 8.4-10.2 [facility] Comment on above: Performed By: #### U AMICAO, UA #### [address] [address] Chloride [Moles/Vol] 106 mmol/L Normal 98-107 [facility] Comment on above: Performed By: #### U AMICAO, UA #### [address] [address] CO2 [Moles/Vol] 28 mmol/L Normal 23-31 [facility] Comment on above: Performed By: #### U AMICAO UA #### [address] [address] Creatinine [Mass/Vol] 1.25 mg/dL Normal 0.70-1.30 [facility] Comment on above: Result Comment: Test ing performed on Siemens Dimension EXL analyzer using a modified kinetic Omid technique. Performed By: #### U AMICAO UA #### [address] [address] Electrolyte Balance 3.0 mEq/L Low 4.0-15.0 [facility] Comment on above: Performed By: #### U AMICAO, UA #### [address] [address] Glucose [Mass/Vol] 86 mg/dL Normal 80-115 [facility] Comment on above: Performed By: #### U AMICAO, UA #### [address] [address] Potassium [Moles/Vol] 4.9 mmol/L Normal 3.5-5.1 [facility] Comment on above: Performed By: #### U AMICAO, UA #### [address] [address] Sodium [Moles/Vol] 137 mmol/L Normal 136-145 [facility] Comment on above: Performed By: #### U JOE UA #### [address] [address] Urea nitrogen [Mass/Vol] 22 mg/dL High 7-18 [facility] Comment on above: Performed By: #### U JOE UA #### [address] [place], [place] [address] CBCon 09-15-2024 Erythrocyte distribution width (RBC) [Ratio] 13.7 % Normal 11.5-15.5 [facility] Comment on above: Performed By: #### C YAAKOV, MAYDA, JUDITHS, W, BMP, GFR, ADIFF #### [address] [address] Hematocrit (Bld) [Volume fraction] 45.0 % Normal 40.0-52.0 [facility] Comment on above: Performed By: #### C BC, MAYDA, JUDITHS, W, BMP, GFR, ADIFF #### [address] [address] Hgb 15.3 G/dL Normal 13.0-17.5 [facility] Comment on above: Performed By: #### C BC, MAYDA, JUDITHS, MDW, BMP, GFR, ADIFF #### [address] [address] MCH (RBC) [Entitic mass] 30.9 pg Normal 27.0-33.0 [facility] Comment on above: Performed By: #### C BC, MAYDA, JUDITHS, MDW, BMP, GFR, ADIFF #### [address] [address] MCHC 33.9 G/dL Normal 32.0-36.0 [facility] Comment on above: Performed By: #### C BC, MAYDA, JUDITHS, MDW, BMP, GFR, ADIFF #### [address] [address] MCV (RBC) [Entitic vol] 91.1 fL Normal 81.0-100.0 [facility] Comment on above: Performed By: #### C BC, ANEU, TROPHS, MDW, BMP, GFR, ADIFF #### [address] [address] Platelet 236 10 3/mcL Normal 150-450 [facility] Comment on above: Performed By: #### C BC, ANEU, TROPHS, MDW, BMP, GFR, ADIFF #### [address] [address] Platelet mean volume (Bld) [Entitic vol] 9.1 fL Normal 6.4-10.5 [facility] Comment on above: Performed By: #### C BC, ANEU, TROPHS, MDW, BMP, GFR, ADIFF #### [address] [address] RBC 4.94 10 6/mcL Normal 4.50-6.00 [facility] Comment on above: Performed By: #### C BC, ANEU, TROPHS, MDW, BMP, GFR, ADIFF #### [address] [address] WBC 11.5 10 3/mcL High 4.5-10.8 [facility] Comment on above: Performed By: #### C BC, ANEU, TROPHS, MDW, BMP, GFR, ADIFF #### [address] [address] [address] HEAD OR BRAIN W/O CONTRAS Ton [...] 09/15/2024 4:36:30 PM Ordering Provider: NASIM ANDERS [facility] CVFLURVon 09-15-2024 FLU A PCR Negative Normal Negative [facility] Comment on above: Performed By: #### C VFLURV #### [place] [address] FLU B PCR Negative Normal Negative [facility] Comment on above: Performed By: #### C VFLURV #### [place] [address] RSV PCR Negative Normal Negative [facility] Comment on above: Performed By: #### C VFLURV #### [place] [address] SARS-CoV-2 (COVID-19) RNA PAMELA+probe Ql (Unsp spec) Negative Normal Negative [facility] Comment on above: Result Comment: Resu lts [...] Performed By: #### C VFLURV #### [facility] [place] [address] [place], [place] [address] LABORATORYOrdered By: Veto Antony on 09-15-2024 FLUAV [...] ng/L Male: 0-76 ng/L Testing performed on [employer] using a homogeneous sandwich chemiluminescent immunoassay based on [employer] technology. WBC (Bld) [#/Vol] 11.5 103/mcL High [...] Sensitivity Troponin I 6 ng/L Normal 0-76 [facility] Comment on above: Result Comment: High Sensitive Troponin I Reference Ranges: Female: 0-51 ng/L Male: 0-76 ng/L Testing performed on [employer] using a homogeneous sandwich chemiluminescent immunoassay based on [employer] technology. Performed By: #### U JOE UA #### [address] [address] UAon 09-15-2024 Color (U) Yellow Normal [facility] Comment on above: Performed By: #### U AMICAO, UA #### [address] [address] Glucose (U) [Mass/Vol] Negative Normal Negative [facility] Comment on above: Performed By: #### U AMICAO, UA #### [place] [address] UA Appear Clear Normal Clear [facility] Comment on above: Performed By: #### U AMICAO, UA #### [place] [address] UA Blood Negative Normal Negative [facility] Comment on above: Performed By: #### U AMICAO, UA #### [place] [address] UA Leuk Est Negative Normal Negative [facility] Comment on above: Performed By: #### U AMICAO, UA #### [place] [address] UA Nitrite Negative Normal Negative [facility] Comment on above: Performed By: #### U AMICAO, UA #### [place] [address] UA pH 5.5 Normal 5.0 - 8.0 [facility] Comment on above: Performed By: #### U AMICAO, UA #### [address] [address] UA Protein 30 mg/dL Normal Negative [facility] Comment on above: Performed By: #### U AMICAO, UA #### [place] [address] UA Spec Grav >=1.030 Abnormal 1.015-1.025 [facility] Comment on above: Performed By: #### U AMICAO, UA #### [place] [address] UA Specimen Type Clean Catch Normal [facility] Comment on above: Performed By: #### U AMICAO, UA #### [facility] [address] [place], [place] [address] UA Urobilinogen 0.2 E.U./dL Normal 0.2-1.0 [facility] Comment on above: Performed By: #### U AMICAO, UA #### [address] [place], [place] [address] Urobilinogen (U) [Mass/Vol] Negative Normal Negative [facility] Comment on above: Performed By: #### U AMICAO, UA #### [address] [place], [place] [address] UAOrdered By: Trish Jimenez on 09-15-2024 Ketones Ql (U) Negative Normal Negative [facility]rine SS Comment on above: Performed By: #### U AMICAO, UA #### [address] [address] XR CHEST 1 VIEWon 09-15-2024 XR CHEST [...] 09/15/2024 3:27:25 PM Ordering [facility] Telephone (FAMSlimWS) AFSHIN ZEE ([id number]) 1955 M Date Time Provider Department 09/08/24 [facility] During your visit today, we recorded [...] (FLONASE) 50 mcg/actuation nasal spray Use 1 Premium in each nostril twice daily. Rinse mouth after use. - Blood Pressure Monitor kit 1 application twice daily. Measure patient for correct size. Patient needs cuff for left arm readings. - COMPOUNDED PRESCRIPTION Articulating AFO foot brace for right leg. Send to [email or web address]. Dx: I63.9 - COMPOUNDED PRESCRIPTION EMBER WALKER DX I63.9 weight 162 # Problem List As Of Date 09/08/2024 Noted Resolved Hyperlipidemia [E78.5] 06/06/2010 Elevated blood pressure [GAR5908] 06/06/2010 03/20/2019 Erectile dysfunction [N52.9] 06/06/2010 Cervicalgia [M54.2] 04/16/2016 Chronic right shoulder pain [M25.511, G89.29] 04/16/2016 Occlusion of left carotid artery [I65.22] 07/02/2016 Stroke (cerebrum) (HCC) [I63.9] Aneurysm (HCC) [I72.9] Essential hypertension [I10] 06/25/2017 Anxiety [F41.9] 09/04/2017 Chronic insomnia [F51.04] 04/04/2018 Right hemiplegia (HCC) [G81.91] 04/30/2018 Bradycardia [R00.1] 03/20/2019 Dysphasia [R47.02] Coronary artery disease involving unalakleet matos*04/02/2021 Paroxysmal atrial fibrillation (HCC) [I48.0] 04/03/2021 Aphasia as late effect of cerebrovas (more content not included)... Normal [facility] CNOVon 09-03-2024 CNOV Office Visit (NE50MN ) AFSHIN ZEE ([id number]) 1955 M Date Time Provider Department 09/03/24 2:00 PM JOYCELYN WOODRUFF NE50MN During your visit today, we recorded the following information about you: Pulse Blood pressure Weight Height 55/minute 128/64 84.4 kg 1.778 m Joycelyn Woodruff MD 09/09/2024 4:10 PM Signed [facility] Patient Name: Afshin ELLIS Date of : 1955 Referring Provider: Jessie Harmon [address] [facility] [address] INITIAL EPILEPSY CLINIC NOTE 09/03/2024 2:00 PM CHIEF COMPLAINT: New Patient HISTORY OF PRESENT ILLNESS Mr. Zee is a 69 year old male seen in [facility] for initial consultation. 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 Normal [facility] D/C Summary- SPon 08-21-2024 D/C Summary- SP [facility] Speech [facility] [address] [place] [address] / REHABILITATION SERVICES DISCHARGE SUMMARY MR#: [id number] Acct: [id number] Name: AFSHIN ZEE Rep #: [id number] : 1955 69 From: Isa Kramer Referring Dr.: Dr. Davin Kim MD [facility] Discharge Summary Discharged: Discharge: Pt was seen for initial speech/language/cognit jhonatan evaluation at [facility] on 11/18/23 secondary to [...] Pt???s request following script from physician. 08/21/24 0965 CC: Dr. Jaci Arroyo MD; Dr. Davin Kim MD [facility] Signed Normal [facility] CNPNon 08-14-2024 CNPN Telephone (FAMPWS) AFSHIN EZE ([id number]) 1955 M Date Time Provider Department 08/14/24 JACI ARROYO During your visit today, we recorded the following information about you: Raiza John RN 08/14/2024 12:21 PM Signed Spouse (Eli) calls to request results of CT scan of head and neck from 06/01/[address] Joycelyn Woodruff at [facility]. CT results were ordered by Dr. Nirali Castro and not completed at [facility]. Spouse believes testing was completed at [facility]. Recommended patient contact [facility] if that is where he had testing completed. Eli will contact Dr. Nirali Castro first and then [facility] if needed. Phone number given to Dr. [...] (FLONASE) 50 mcg/actuation nasal spray Use 1 Premium in each nostril twice daily. Rinse mouth after use. - Blood Pressure Monitor kit 1 application twice daily. Measure patient for correct size. Patient needs cuff for left arm readings. - COMPOUNDED PRESCRIPTION Articulating AFO foot brace for right leg. Send to [email or web address]. Dx: I63.9 - COMPOUNDED PRESCRIPTION EMBER WALKER DX I63.9 weight 162 # Problem List As Of Date 08/14/2024 Noted Resolved Hyperlipidemia [E78.5] 06/06/2010 Elevated blood pressure [RGE2030] 06/06/2010 03/20/2019 Erectile dysfunction [N52.9] 06/06/2010 Cervicalgia [M54.2] 04/16/2016 Chronic right shoulder pain [M25.511, G89.29] 04/16/2016 Occlusion of left carotid artery [I65.22] 07/02/2016 Stroke (cerebrum) (HCC) [I63.9] Aneurysm (HCC) [I72.9] Essential hypertension [I10] 06/25/2017 Anxiety [F41.9] 09/04/2017 Chronic insomnia [F51.04] 04/04/2018 Right hemiplegia (HCC) [G81.91] 04/30/2018 Bradycardia [R00.1] 03/20/2019 Dysphasia [R47.02] Coronary artery disease involving unalakleet cor (more content not included)... [facility] ([id number]) 1955 M Date Time Provider Department 07/27/24 [facility] During your visit today, we recorded [...] in the office for incontinence supplies from [facility]. There is a fax number: [phone]. There isn't a phone number. reports pt uses large pull-up at bedtime. Heavier flow. is asking if office can send order to [facility]. Could not find scanned form in pt's chart. is requesting a call letting her know if office was able to get order to [facility]. reports pt does not have very many pull-ups left. JAVI Sneed Kathryn, MA 07/27/2024 10:35 AM Signed Send order for incontinence supplies to [facility] fax number [phone] Rachel Buckley MA 07/28/2024 9:06 AM Signed Office received fax from [employer] regarding incontinence supplies. Type of form: Medical Necessity Form received via fax When form is completed, Fax form to [employer] Form has been forwarded to Physician Desk: JIMI Ramos M Robin, RN 08/26/2024 4:22 PM Signed reports patient is almost out of incontinent supplies, has a week of supplies left. Asking provider to please send information to [employer] Jaci Arroyo MD 09/01/2024 2:41 PM Signed I do not see any forms on my desk, I assume these have been done? MD Anthony Mathew Kathryn, MA 09/01/2024 3:20 PM Addendum No forms received other than the forms that were received in Jul and faxed to [facility]. May need to call for a new order form. [facility] ph: [phone]. pt was notify of below: Called [facility], spoke with rep who stated that the [...] NEEDED FO (more content not included)... Normal [facility] CNCONon 07-23-2024 CNCON Consults (NE50MN) AFSHIN ZEE ([id number]) 1955 M Date Time Provider Department 07/23/24 JUDE GROVES NE50MN During your visit today, we recorded the following information about you: Nayeli Boyle APRN.ESTELLA 07/23/2024 3:04 PM Signed [facility] Review of Records Patient: Afshin Zee Address: [address] [place], [place] [id number] Impression: Review of records for Afshin Zee, a 68 year old male, being referred by Michelle Webb PA-C [[facility]] to [facility] Ep[facility]ptologist for further [...] to old embolic stroke, anxiety PRIOR EVALUATIONS: [facility] [address] [facility] 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 No seizures were recorded EEG ([facility], 11/10/2016): This is an abnormal electroencephalogram recording [...] 11/10/2016. No acute findings on today's exam. [id number]-tp-[id number] MRA demonstrates complete occlusion of the left [...] for VEEG monitoring, diagnostic evaluation Location: Main [place] or [place] - Visit with epileptologist prior to admission - OK to start with a consult visit if patient prefers. - Additional testing to be considered by epilepsy clinicians Signed: Nayeli Boyle APRN.LAUNDRY OPERATOR WASH ROOM July 23, [address] Grvoes for review and recommendations. ------- MD Recommendations (as discussed with Dr. Groves): - Please proceed with the above plan. = Please route this encounter to the EMU Scheduling Pool (P EMU) or PMU Scheduling Pool (P PMU) through LOS AND Follow up = PHASE 1.0 AND 1.5 ORDER SYNOPSIS Patient: Afshin Zee ([id number]) Best contact number: [phone] Insurance: Payor: [facility] MEDICARE / Plan: [facility] DUAL COMPLETE HMO POS SNP / Product Type: Medicare / Scheduling Team: Please call for adult patients: EMU coordinator ([phone]) [place] Coordinator ([phone]) PMU coordinator() [employer]ilingual [employer] ([phone]) Please call for pediatric patients: PMU coordinator ([phone]) [place] Coordinator ([phone]) EMU coordinator ([phone] (more content not included)... Normal [facility] CNOVon 07-22-2024 CNOV Office Visit (RITIKA ) AFSHIN ZEE ([id number]) 1955 M Date Time Provider Department 07/22/24 [...] over results with patient, patient's , patient's dye mixer and patient's son on the phone. New [...] will schedule this today. 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 Normal [facility] Veda 07-22-2024 CNPN Telephone (FAMPWS) AFSHIN ZEE ([id number]) 1955 M Date Time Provider Department 07/22/24 JACI ARROYO During your visit today, we recorded the following information about you: Jayde Laughlin RN 07/22/2024 5:01 PM Signed Elida from [employer] with Patient's calls and states that when prescription was sent to [facility] patient did not pay out of [...] Please review and advise, DIANE Power Ashley, APRN.LAUNDRY OPERATOR WASH ROOM 07/23/2024 12:04 PM Signed Can you please call the patient's and let her know that I sent a prescription into preferred pharmacy. However I cannot guarantee that insurance will cover a multivitamin. Thank you Jessie Harmon APRN.LAUNDRY OPERATOR WASH ROOM The following approved medication requests have been [...] fluticasone ([place] (more content not included)... Normal [facility] CNOVon 07-13-2024 [facility] AF[facility]IN [facility]EE ([id number]) 1955 M Date Time Provider Department 07/13/24 1:40 PM [facility] During your visit today, we recorded [...] appointment at the end of the month. [facility] discharge, neurology at [facility] recommended weaning off [...] FOLLOW UP: Reason for visit: Which facility: [facility] Date of visit: 06/26/2024-06/28/2024 Diagnosis: Confusion, Adverse [...] Respiratory failure (HCC) hypoxic-ventilator dependent Stroke (cerebrum) ([facility]) Tobacco abuse PAST SURGICAL HISTORY Procedure Laterality Date ANKLE SURGERY HX Right 08/07/2023 Dr. Kim. Right ankle ORIF due to fracture CABG CONSULT 10/30/2016 multi vessel COLONOSCOPY SCREENING 04/10/2023 EGD [facility] SPEC VARICIES INJ 04/11/2023 EGD W/O [facility] SPEC VARICIES INJ 04/10/2023 HEART CATHETERIZATION 09/17/2016 [...] BREATH. USE (more content not included)... Normal [facility] Veda 07-07-2024 VINCENT Telephone ([place]) ZEEAFSHIN ([id number]) 1955 M Date Time Provider Department 07/07/24 [...] (FLONASE) 50 mcg/actuation nasal spray Use 1 Premium in each nostril twice daily. Rinse mouth after use. - Blood Pressure Monitor kit 1 application twice daily. Measure patient for correct size. Patient needs cuff for left arm readings. - COMPOUNDED PRESCRIPTION Articulating AFO foot brace for right leg. Send to [email or web address]. Dx: I63.9 - COMPOUNDED PRESCRIPTION EMBER WALKER DX I63.9 weight 162 # Problem List As Of Date 07/07/2024 Noted Resolved Hyperlipidemia [E78.5] 06/06/2010 Elevated blood pressure [QOC2283] 06/06/2010 03/20/2019 Erectile dysfunction [N52.9] 06/06/2010 Cervicalgia [M54.2] 04/16/2016 Chronic right shoulder pain [M25.511, G89.29] 04/16/2016 Occlusion of left carotid artery [I65.22] 07/02/2016 Stroke (cerebrum) (HCC) [I63.9] Aneurysm (HCC) [I72.9] Essential hypertension [I10] 06/25/2017 Anxiety [F41.9] 09/04/2017 Chronic insomnia [F51.04] 04/04/2018 Right hemiplegia (HCC) [G81.91] 04/30/2018 Bradycardia [R00.1] 03/20/2019 Dysphasia [R47.02] Coronary artery disease involving unalakleet mtaos*04/02/2021 Paroxysmal atrial fibrillation (HCC) [I48.0] 04/03/2021 Aphasia [...] Pre-operative cardiovascula (more content not included)... Normal [facility] CNPN Telephone ([place]ITIKA) AFSHIN ZEE ([id number]) 1955 M Date Time Provider Department 07/07/24 JEAN MARIE JAIN, DANIA YOST During your visit today, we recorded the following information about you: Therese Paz LPN 07/07/2024 10:11 AM Signed calling because she has not heard back. Pt was in [facility] ER/Hospital last week. Pt is off his seizure medicines and not sure what he is to be taking. They are trying to get apt with Dr. Aj or [facility] soon. Please call to schedule apt. Very [...] (FLONASE) 50 mcg/actuation nasal spray Use 1 Premium in each nostril twice daily. Rinse mouth after use. - Blood Pressure Monitor kit 1 application twice daily. Measure patient for correct size. Patient needs cuff for left arm readings. - COMPOUNDED PRESCRIPTION Articulating AFO foot brace for right leg. Send to [email or web address]. Dx: I63.9 - COMPOUNDED PRESCRIPTION EMBER WALKER DX I63.9 weight 162 # Problem List As Of Date 07/07/2024 Noted Resolved Hyperlipidemia [E78.5] 06/06/2010 Elevated blood pressure [PTT1998] 06/06/2010 03/20/2019 Erectile dysfunction [N52.9] 06/06/2010 Cervicalgia [M54.2] 04/16/2016 Chronic right shoulder pain [M25.511, G89.29] 04/16/2016 Occlusion of left carotid artery [I65.22] 07/02/2016 Stroke (cerebrum) (HCC) [I63.9] Aneurysm (HCC) [I72.9] Essential hypertension [I10] 06/25/2017 Anxiety [F41.9] 09/04/2017 Chronic insomnia [F51.04] 04/04/2018 Right hemiplegia (HCC) [G81.91] 04/30/2018 Bradycardia [R00.1] 03/20/2019 Dysphasia [R47.02] Coronary artery disease involving unalakleet matos*04/02/2021 Paroxysmal atrial fibrillation (HCC) [I48.0] 04/03/2021 Aphasia as late effect of cerebrovascular accid (more content not included)... Normal [facility] CNOVon 07-01-2024 CNOV Office Visit (FAMPWS ) AFSHIN ZEE ([id number]) 1955 M Date Time Provider Department 07/01/24 10:20 AM JESSIE HARMON FAMPWS During your visit today, we recorded the following information about you: Pulse Respiration Blood pressure Height 77/minute 12/minute 110/62 1.778 m Jessie Harmon APRN.CNP 07/01/2024 4:13 PM Signed This is a 68 year old male who presents today with: Patient presents with: ER F/U: [facility] ER- Saturday walking pneumonia, then ER Saturday- seizure (), also needs letter stating that he can not make decisions for himself HISTORY OF PRESENT ILLNESS: Afshin Zee is a 68 year old male. Patient presents with: ER F/U: [facility] ER- Saturday walking pneumonia, then ER Saturday- seizure (), also needs letter stating that he can not make decisions for himself HOSPITAL/ER FOLLOW UP: Reason for visit: Which facility: [facility] Date of visit: 06/26/2024-06/28/2024 Diagnosis: Confusion, Adverse [...] multi vessel COLONOSCOPY SCREENING 04/10/2023 EGD [facility] SPEC VARICIES INJ 04/11/2023 EGD [facility] SPEC VARICIES INJ 04/10/2023 HEART CATHETERIZATION 09/17/2016 [...] escitalopram oxalate (more content not included)... Normal [facility] Basic Metabolic Profile (BMP )on 06-29-2024 BUN Normal 7-18 [facility] Comment on above: Result Comment: Canc elled via OM: Order cancelled - Patient discharged Performed By: #### L 500.2500, L100.0100 ####[facility] [address] [facility] [address] BUN/CRE Normal 10-20 [facility] Comment on above: Result Comment: Canc elled via OM: Order cancelled - Patient discharged Performed By: #### L 500.2500, L100.0100 ####[facility] [address] [place], [address] CA,Total Normal 8.5-10.1 [facility] Comment on above: Result Comment: Canc elled via OM: Order cancelled - Patient discharged Performed By: #### L 500.2500, L100.0100 ####[facility] [address] [facility] [address] CL Normal 98-107 [facility] Comment on above: Result Comment: Canc elled via OM: Order cancelled - Patient discharged Performed By: #### L 500.2500, L100.0100 ####[facility] [address] [place], [address] CO2 Normal 21.0-32.0 [facility] Comment on above: Result Comment: Canc elled via OM: Order cancelled - Patient discharged Performed By: #### L 500.2500, L100.0100 ####[facility] [address] [place], [address] CREAT,SERUM Normal 0.70-1.30 [facility] Comment on above: Result Comment: Canc elled via OM: Order cancelled - Patient discharged Performed By: #### L 500.2500, L100.0100 ####[facility] [address] [place], [address] EST GFR Normal >60 [facility] Comment on above: Result Comment: Canc elled via OM: Order cancelled - Patient discharged Performed By: #### L 500.2500, L100.0100 ####[facility] [address] [place], [address] EST GFR - AA Normal >60 [facility] Comment on above: Result Comment: Canc elled via OM: Order cancelled - Patient discharged Performed By: #### L 500.2500, L100.0100 ####[facility] [address] [place], [address] GAP Normal 5-15 [facility] Comment on above: Result Comment: Canc elled via OM: Order cancelled - Patient discharged Performed By: #### L 500.2500, L100.0100 ####[facility] [address] [place], [address] GLU Normal 74-106 [facility] Comment on above: Result Comment: Canc elled via OM: Order cancelled - Patient discharged Performed By: #### L 500.2500, L100.0100 ####[facility] [address] [place], [address] Potassium Normal 3.5-5.1 [facility] Comment on above: Result Comment: Canc elled via OM: Order cancelled - Patient discharged Performed By: #### L 500.2500, L100.0100 ####[facility] [address] [place], [address] Basic Metabolic Profile (BMP) Normal 136-145 [facility] Comment on above: Result Comment: Canc elled via OM: Order cancelled - Patient discharged Performed By: #### L 500.2500, L100.0100 ####[facility] [address] [place], [address] Bedside Glucoseon 06-29-2024 FINGERSTICK GLU 133 mg/dL High 74-106 [facility] Comment on above: Result Comment: MIKE CARABALLO OF PATIENT CARE PER NURSING PROTOCOL Performed By: #### L 501.080 ####[facility] [address] [place], [address] CBC W/Diff, Automatedon 06-06 Absolute Neut Normal 2.0-7.7 [facility] Comment on above: Result Comment: Canc elled via OM: Order cancelled - Patient discharged Performed By: #### L 500.2500, L100.0100 ####[facility] [address] [place], [address] HCT Normal 40-54 [facility] Comment on above: Result Comment: Canc elled via OM: Order cancelled - Patient discharged Performed By: #### L 500.2500, L100.0100 ####[facility] [address] [place], [address] HGB Normal 13.0-16.5 [facility] Comment on above: Result Comment: Canc elled via OM: Order cancelled - Patient discharged Performed By: #### L 500.2500, L100.0100 ####[facility] [address] [place], [address] MCH Normal 27.0-32.0 [facility] Comment on above: Result Comment: Canc elled via OM: Order cancelled - Patient discharged Performed By: #### L 500.2500, L100.0100 ####[facility] [address] [place], [address] MCHC Normal 32-36 [facility] Comment on above: Result Comment: Canc elled via OM: Order cancelled - Patient discharged Performed By: #### L 500.2500, L100.0100 ####[facility] [address] [place], [address] MCV Normal 80-94 [facility] Comment on above: Result Comment: Canc elled via OM: Order cancelled - Patient discharged Performed By: #### L 500.2500, L100.0100 ####[facility] [address] [place], [address] NEUT% Normal 47-70 [facility] Comment on above: Result Comment: Canc elled via OM: Order cancelled - Patient discharged Performed By: #### L 500.2500, L100.0100 ####[facility] [address] [place], [address] PLT Normal 150-450 [facility] Comment on above: Result Comment: Canc elled via OM: Order cancelled - Patient discharged Performed By: #### L 500.2500, L100.0100 ####[facility] [address] [place], [address] RBC Normal 4.6-6.2 [facility] Comment on above: Result Comment: Canc elled via OM: Order cancelled - Patient discharged Performed By: #### L 500.2500, L100.0100 ####[facility] [address] [place], [address] RDW CV Normal 11.6-14.6 [facility] Comment on above: Result Comment: Canc elled via OM: Order cancelled - Patient discharged Performed By: #### L 500.2500, L100.0100 ####[facility] [address] [place], [address] RDW SD Normal 35.1-43.9 [facility] Comment on above: Result Comment: Canc elled via OM: Order cancelled - Patient discharged Performed By: #### L 500.2500, L100.0100 ####[facility] [address] [place], [address] WBC Normal 4.4-11.0 [facility] Comment on above: Result Comment: Canc elled via OM: Order cancelled - Patient discharged Performed By: #### L 500.2500, L100.0100 ####[facility] [address] [place], [address] CNPNon 06-29-2024 CNPN Telephone (FAMPWS) AFSHIN ZEE ([id number]) 1955 M Date Time Provider Department 06/29/24 [facility]O [facility] During your visit today, we recorded the following information about you: Jayde Laughlin RN 06/29/2024 11:41 AM Signed Cathy Siu from [facility] calls and reports that patient was in [facility] ER on 06/26 and diagnosed with Pneumonia and was put on antibiotics. On 06/27 patient was taken to [facility] ER again for breakthrough seizures. Patient was [...] (FLONASE) 50 mcg/actuation nasal spray Use 1 Premium in each nostril twice daily. Rinse mouth after use. - Blood Pressure Monitor kit 1 application twice daily. Measure patient for correct size. Patient needs cuff for left arm readings. - COMPOUNDED PRESCRIPTION Articulating AFO foot brace for right leg. Send to [email or web address]. Dx: I63.9 - COMPOUNDED PRESCRIPTION EMBER WALKER DX I63.9 weight 162 # Problem List As Of Date 06/29/2024 Noted Resolved Hyperlipidemia [E78.5] 06/06/2010 Elevated blood pressure [ESI7861] 06/06/2010 03/20/2019 Erectile dysfunction [N52.9] 06/06/2010 Cervicalgia [M54.2] 04/16/2016 Chronic right shoulder pain [M25.511, G89.29] 04/16/2016 Occlusion of left carotid artery [I65.22] 07/02/2016 Stroke (cerebrum) (HCC) [I63.9] Aneurysm (HCC) [I72.9] Essential hypertension [I10] 06/25/2017 Anxiety [F41.9] 09/04/2017 Chronic insomnia [F51.04] 04/04/2018 Right hemiplegia (HCC) [G81.91] 04/30/2018 Bradycardia [R00.1] 03/20/2019 Dysphasia [R47.02] Coronary artery disease involving unalakleet matos*04/02/2021 Paroxysmal atrial fibrillation (HCC) [I48.0] 04/03/2021 Aphasia as late effect of cerebrovascular accid*05/10/2022 Bacterial pneumonia [J15.9] 11/17/2022 03/12/2023 Tracheostomy status (HCC) [Z93.0] 12/04/2022 02/26/2023 Respiratory failure, unspecified chronicity, un* (more content not included)... Normal [facility] Urine Cultureon 06-29-2024 URC Culture exhibits no growth. Normal [facility] Comment on above: Performed By: #### L 500.2500, L300.3900, L300.4310, L100.0100 #### [facility] Laboratory [address] [facility] [place], [address] Vitamin B12on 06-29-2024 Cobalamin (Vitamin B12) [Mass/Vol] 425 pg/mL Normal 211-911 [facility] Comment on above: Performed By: #### L 500.4100, L501.9985, L505.5000, L503.0105 ####[facility] [address] [place], [address] 12 Lead EKGon 06-28-2024 12 Lead EKG [facility] [address] [place] [address] 12 Lead EKG 06/28/24 1429 MR#: [id number] Acct: [id number] Name: AFSHIN ZEE Rep #: [id number] : 1955 68 From: Lissa Michel MD [...] DATA IS UNCONFIRMED Confirmed by Lissa Michel ([id number]), editor city KHRIS HOPKINS ([id number]) on 06/29/2024 9:57:47 AM Referred By: Confirmed By: Lissa Michel 06/29/24 0957 Date Lissa Michel MD CC: Dr. Dov Marin, DO; Dr. Jaci Arroyo MD Signed Normal [facility] CBC W/Diff, Automatedon 06-06 Absolute Lymph 2.02 X10 3/uL Normal 0.83-4.51 [facility] Comment on above: Performed By: #### L 100.0100, L500.4050, L500.4100, L501.2300, L501.5200, L506.0250 ####[facility] [address] [place], [address] Absolute Neut 5.1 X10 3/uL Normal 2.0-7.7 [facility] Comment on above: Performed By: #### L 100.0100, L500.4050, L500.4100, L501.2300, L501.5200, L506.0250 ####[facility] [address] [place], [address] Basophils/100 WBC (Bld) 0.9 % Normal 0-1 [facility] Comment on above: Performed By: #### L 100.0100, L500.4050, L500.4100, L501.2300, L501.5200, L506.0250 ####[facility] [address] [place], [address] Eosinophils/100 WBC (Bld) 8.3 % High 0-5 [facility] Comment on above: Performed By: #### L 100.0100, L500.4050, L500.4100, L501.2300, L501.5200, L506.0250 ####[facility] [address] [place], [address] Erythrocyte distribution width (RBC) [Ratio] 12.6 % Normal 11.6-14.6 [facility] Comment on above: Performed By: #### L 100.0100, L500.4050, L500.4100, L501.2300, L501.5200, L506.0250 ####[facility] [address] [place], [address] Hematocrit (Bld) [Volume fraction] 37.8 % Low 40-54 [facility] Comment on above: Performed By: #### L 100.0100, L500.4050, L500.4100, L501.2300, L501.5200, L506.0250 ####[facility] [address] [place], [address] Hemoglobin (Bld) [Mass/Vol] 12.6 g/dL Low 13.0-16.5 [facility] Comment on above: Performed By: #### L 100.0100, L500.4050, L500.4100, L501.2300, L501.5200, L506.0250 ####[facility] [address] [place], [address] IG% 1.600 High 0.0-0.9 [facility] Comment on above: Result Comment: IG% - Immature Granulocytes (promyelocytes, myelocytes and metamyelocytes) > 1% indicates that a LEFT SHIFT is Present. Performed By: #### L 100.0100, L500.4050, L500.4100, L501.2300, L501.5200, L506.0250 ####[facility] [address] [place], [address] Lymphocytes/100 WBC (Bld) 22.0 % Normal 19-41 [facility] Comment on above: Performed By: #### L 100.0100, L500.4050, L500.4100, L501.2300, L501.5200, L506.0250 ####[facility] [address] [place], [address] MCH (RBC) [Entitic mass] 31.3 pg Normal 27.0-32.0 [facility] Comment on above: Performed By: #### L 100.0100, L500.4050, L500.4100, L501.2300, L501.5200, L506.0250 ####[facility] [address] [place], [address] MCHC (RBC) [Mass/Vol] 33.3 g/dL Normal 32-36 [facility] Comment on above: Performed By: #### L 100.0100, L500.4050, L500.4100, L501.2300, L501.5200, L506.0250 ####[facility] [address] [place], [address] MCV (RBC) [Entitic vol] 94.0 fL Normal 80-94 [facility] Comment on above: Performed By: #### L 100.0100, L500.4050, L500.4100, L501.2300, L501.5200, L506.0250 ####[facility] [address] [place], [address] Monocytes/100 WBC (Bld) 11.5 % High 0-10 [facility] Comment on above: Performed By: #### L 100.0100, L500.4050, L500.4100, L501.2300, L501.5200, L506.0250 ####[facility] [address] [place], [address] Neutrophils/100 WBC (Bld) 55.7 % Normal 47-70 [facility] Comment on above: Performed By: #### L 100.0100, L500.4050, L500.4100, L501.2300, L501.5200, L506.0250 ####[facility] [address] [place], [address] Nucleated RBC (Bld) [#/Vol] 0 10*3/uL Normal 0-5 [facility] Comment on above: Performed By: #### L 100.0100, L500.4050, L500.4100, L501.2300, L501.5200, L506.0250 ####[facility] [address] [place], [address] Platelet mean volume (Bld) [Entitic vol] 11.5 fL Normal 6.2-12.0 [facility] Comment on above: Performed By: #### L 100.0100, L500.4050, L500.4100, L501.2300, L501.5200, L506.0250 ####[facility] [address] [place], [address] Platelets (Bld) [#/Vol] 216 10*3/uL Normal 150-450 [facility] Comment on above: Performed By: #### L 100.0100, L500.4050, L500.4100, L501.2300, L501.5200, L506.0250 ####[facility] [address] [place], [address] RBC (Bld) [#/Vol] 4.02 10*6/uL Low 4.6-6.2 [facility] Comment on above: Performed By: #### L 100.0100, L500.4050, L500.4100, L501.2300, L501.5200, L506.0250 ####[facility] [address] [place], [address] RDW SD 43.2 fl Normal 35.1-43.9 [facility] Comment on above: Performed By: #### L 100.0100, L500.4050, L500.4100, L501.2300, L501.5200, L506.0250 ####[facility] [address] [place], [address] WBC (Bld) [#/Vol] 9.2 10*3/uL Normal 4.4-11.0 [facility] Comment on above: Performed By: #### L 100.0100, L500.4050, L500.4100, L501.2300, L501.5200, L506.0250 ####[facility] [address] [place], [address] Comprehensive Metabolic Prof ilon 06-28-2024 Albumin [Mass/Vol] 3.0 g/dL Low 3.2-5.0 [facility] Comment on above: Order Comment: N Performed By: #### L 100.0100, L500.4050, L500.4100, L501.2300, L501.5200, L506.0250 ####[facility] [address] [place], [address] Albumin/Globulin [Mass ratio] 0.9 {ratio} Normal 0.9-2.4 [facility] Comment on above: Order Comment: N Performed By: #### L 100.0100, L500.4050, L500.4100, L501.2300, L501.5200, L506.0250 ####[facility] [address] [place], [address] ALK P 102 U/L Normal 45-117 [facility] Comment on above: Order Comment: N Performed By: #### L 100.0100, L500.4050, L500.4100, L501.2300, L501.5200, L506.0250 ####[facility] [address] [place], [address] ALT [Catalytic activity/Vol] 18 U/L Normal 16-61 [facility] Comment on above: Order Comment: N Performed By: #### L 100.0100, L500.4050, L500.4100, L501.2300, L501.5200, L506.0250 ####[facility] [address] [place], [place], [phone] AST [Catalytic activity/Vol] 15 U/L Normal 15-37 [facility] Comment on above: Order Comment: N Performed By: #### L 100.0100, L500.4050, L500.4100, L501.2300, L501.5200, L506.0250 ####[facility] [address] [place], [place], [phone] Bilirubin [Mass/Vol] 0.50 mg/dL Normal 0.20-1.00 [facility] Comment on above: Order Comment: N Result Comment: For patients on eltrombopag therapy, use of Dimension [place] TBIL is not recommended. Performed By: #### L 100.0100, L500.4050, L500.4100, L501.2300, L501.5200, L506.0250 ####[facility] [address] [place], [address] BUN/CRE 14.2 RATIO Normal 10-20 [facility] Comment on above: Order Comment: N Performed By: #### L 100.0100, L500.4050, L500.4100, L501.2300, L501.5200, L506.0250 ####[facility] [address] [place], [place], [phone] CA,Total 8.5 mg/dL Normal 8.5-10.1 [facility] Comment on above: Order Comment: N Performed By: #### L 100.0100, L500.4050, L500.4100, L501.2300, L501.5200, L506.0250 ####[facility] [address] [place], [address] Chloride [Moles/Vol] 112 mmol/L High 98-107 [facility] Comment on above: Order Comment: N Performed By: #### L 100.0100, L500.4050, L500.4100, L501.2300, L501.5200, L506.0250 ####[facility] [address] [place], [address] CO2 [Moles/Vol] 27.0 mmol/L Normal 21.0-32.0 [facility] Comment on above: Order Comment: N Performed By: #### L 100.0100, L500.4050, L500.4100, L501.2300, L501.5200, L506.0250 ####[facility] [address] [place], [address] Creatinine [Mass/Vol] 1.06 mg/dL Normal 0.70-1.30 [facility] Comment on above: Order Comment: N Result Comment: The validity of the calculated GFR GFRAA in patients over 70 years has not been determined. Clinical correlation is essential. Performed By: #### L 100.0100, L500.4050, L500.4100, L501.2300, L501.5200, L506.0250 ####[facility] [address] [place], [address] ECRCL 75.43 ml/min Normal [facility] Comment on above: Order Comment: N Performed By: #### L 100.0100, L500.4050, L500.4100, L501.2300, L501.5200, L506.0250 ####[facility] [address] [place], [address] EST GFR - AA 89 mL/min Normal >60 [facility] Comment on above: Order Comment: N Result Comment: Afri can [place] GFR Calc Performed By: #### L 100.0100, L500.4050, L500.4100, L501.2300, L501.5200, L506.0250 ####[facility] [address] [place], [address] GAP 5 Normal 5-15 [facility] Comment on above: Order Comment: N Performed By: #### L 100.0100, L500.4050, L500.4100, L501.2300, L501.5200, L506.0250 ####[facility] [address] [place], [address] GFR/1.73 sq M.predicted among non-blacks MDRD (S/P/Bld) [Vol rate/Area] 74 mL/min/{1.73_m2} Normal >60 [facility] Comment on above: Order Comment: N Result Comment: Non- GFR Calc Performed By: #### L 100.0100, L500.4050, L500.4100, L501.2300, L501.5200, L506.0250 ####[facility] [address] [place], [address] Globulin (S) [Mass/Vol] 3.3 g/dL Normal 2.2-4.2 [facility] Comment on above: Order Comment: N Performed By: #### L 100.0100, L500.4050, L500.4100, L501.2300, L501.5200, L506.0250 ####[facility] [address] [place], [address] Glucose [Mass/Vol] 123 mg/dL High 74-106 [facility] Comment on above: Order Comment: N Result Comment: Fast ing Glucose result from 100 to 125 mg/dL suggests IMPAIRED HOMEOSTASIS per A.D.A. criteria. Performed By: #### L 100.0100, L500.4050, L500.4100, L501.2300, L501.5200, L506.0250 ####[facility] [address] [place], [address] Potassium [Moles/Vol] 3.8 mmol/L Normal 3.5-5.1 [facility] Comment on above: Order Comment: N Performed By: #### L 100.0100, L500.4050, L500.4100, L501.2300, L501.5200, L506.0250 ####[facility] [address] [place], [address] Sodium [Moles/Vol] 144 mmol/L Normal 136-145 [facility] Comment on above: Order Comment: N Performed By: #### L 100.0100, L500.4050, L500.4100, L501.2300, L501.5200, L506.0250 ####[facility] [address] [place], [address] T PROT 6.3 g/dL Low 6.4-8.2 [facility] Comment on above: Order Comment: N Performed By: #### L 100.0100, L500.4050, L500.4100, L501.2300, L501.5200, L506.0250 ####[facility] [address] [place], [address] Urea nitrogen [Mass/Vol] 15 mg/dL Normal 7-18 [facility] Comment on above: Order Comment: N Performed By: #### L 100.0100, L500.4050, L500.4100, L501.2300, L501.5200, L506.0250 ####[facility] [address] [place], [address] Folates, (Folic Acid)on 06-06 FOLATES 13.60 ng/mL Normal 3.1-55.4 [facility] Comment on above: Order Comment: N Performed By: #### L 100.0100, L500.4050, L500.4100, L501.2300, L501.5200, L506.0250 ####[facility] [address] [place], [address] Hemoglobin A1con 06-28-2024 HbA1c (Bld) [Mass fraction] 5.0 % Normal 3.8-5.6 [facility] Comment on above: Result Comment: Norm al < 5.7 % Prediabetic 5.7 - 6.4 % Diabetic >or= 6.5 % Please note range changes. Performed By: #### L 500.4100, L501.9985, L505.5000, L503.0105 ####[facility] [address] [place], [address] Legionella Antigen Urineon 08-28-2023 LEGU URINE, CLEAN CATCH Legionella Antigen result interpretation: L pneumo Ag Ur Ql Negative Presumptive negative for Legionella pneumophila serogroup 1 antigen in urine, suggesting no recent or current infection. Legionella Ag, Urine Negative (See interpretation below) Normal [facility] Comment on above: Performed By: #### M 300.4500, M300.4600 ####[facility] [address] [place], [address] Lipid Profileon 06-28-2024 Cholesterol [Mass/Vol] 128 mg/dL Normal 200 [facility] Comment on above: Order Comment: N Result Comment: <200 mg/dL Desirable 200-240 mg/dL Borderline >240 mg/dL High Risk Performed By: #### L 100.0100, L500.4050, L500.4100, L501.2300, L501.5200, L506.0250 ####[facility] [address] [place], [address] Cholesterol in HDL [Mass/Vol] 38 mg/dL Low [facility] Comment on above: Order Comment: N Result Comment: The drugs N-Acetylcysteine and Metamizole may falsely depress this assay. Reference Range HDL <40 mg/dL Low HDL Cholesterol HDL >or= 60 mg/dL High HDL Cholesterol Performed By: #### L 100.0100, L500.4050, L500.4100, L501.2300, L501.5200, L506.0250 ####[facility] [address] [place], [address] Cholesterol in LDL [Mass/Vol] 49 mg/dL Normal 0-130 [facility] Comment on above: Order Comment: N Performed By: #### L 100.0100, L500.4050, L500.4100, L501.2300, L501.5200, L506.0250 ####[facility] [address] [place], [address] Cholesterol in VLDL [Mass/Vol] 41 mg/dL High 5-40 [facility] Comment on above: Order Comment: N Performed By: #### L 100.0100, L500.4050, L500.4100, L501.2300, L501.5200, L506.0250 ####[facility] [address] [place], [address] Triglyceride [Mass/Vol] 205 mg/dL High W [facility] Comment on above: Order Comment: N Result Comment: The drugs N-Acetylcysteine and Metamizole may falsely depress this assay. Serum Triglycerides Reference Interval Normal <150 mg/dL Borderline high 150 - 199 mg/dL High 200 - 499 mg/dL Very High > or = 500 mg/dL Performed By: #### L 100.0100, L500.4050, L500.4100, L501.2300, L501.5200, L506.0250 ####[facility] [address] [place], [address] CHOL Normal 200 [facility] Comment on above: Order Comment: Has P atient had X-rays with Contrast this admission? [place] Result Comment: MOVE D TO DIFFERENT REQ Performed By: #### L 500.4100, L501.9985, L505.5000, L503.0105 ####[facility] [address] [place], [address] HDL Normal [facility] Comment on above: Order Comment: Has Slim mariee had X-rays with Contrast this admission? [place] Result Comment: MOVE D TO DIFFERENT REQ Performed By: #### L 500.4100, L501.9985, L505.5000, L503.0105 ####[facility] [address] [place], [address] LDL Normal 0-130 [facility] Comment on above: Order Comment: Has Slim mariee had X-rays with Contrast this admission? [place] Result Comment: MOVE D TO DIFFERENT REQ Performed By: #### L 500.4100, L501.9985, L505.5000, L503.0105 ####[facility] [address] [place], [address] TRIG Normal [facility] Comment on above: Order Comment: Has Slim mariee had X-rays with Contrast this admission? [place] Result Comment: MOVE D TO DIFFERENT REQ Performed By: #### L 500.4100, L501.9985, L505.5000, L503.0105 ####[facility] [address] [place], [address] VLDL Normal 5-40 [facility] Comment on above: Order Comment: Has Slim mariee had X-rays with Contrast this admission? [place] Result Comment: MOVE D TO DIFFERENT REQ Performed By: #### L 500.4100, L501.9985, L505.5000, L503.0105 ####[facility] [address] [place], [address] MR/CON.PCM.NEon 06-28-2024 MR/CON.PCM.NE [facility] Medical Records Department [address] [place] [address] Consultation - Neurology 06/28/24 1125 MR#: [id number] Acct: [id number] Name: AFSHIN ZEE Rep #: [id number] : 1955 68 From: Leta Luciano MD PCP: Dr. Jaci Arroyo MD Status:ADM JUMANA Location: [place] [address] Assessment and Plan: Neuro Assessment/Plan AFSHIN ZEE [...] appropriate treatment and workup. Leta Luciano MD [facility] Teleneurology department HPI Consult Data Date of [...] new neurologist, Dr. Aj, who presents to [facility] ER with his complaining of he has been intermittently confused since starting this new AED. On my evaluation, patient did not appear confused and was able to follow commands . noticed that his left eye was not normal and patient was more unsteady at baseline since starting Keppra.She was also worried about a new stroke and brought in for further evaluation [facility] Medical History Closed right ankle fracture Wears dentures Wears glasses History of Clostridium difficile infection Anxiety Bruising Ambulates with cane Easy bruising Gastric reflux Former smoker CPAP (continuous positive airway pressure) dependence History of echocardiogram Cardiology follow-up encounter History of atrial fibrillation Bimalleolar fracture of right ankle Hypoxia History of stroke History of stroke 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 Normal [facility] Magnesiumon 06-28-2024 Magnesium [Mass/Vol] 2.1 mg/dL Normal 1.6-2.6 [facility] Comment on above: Order Comment: N Performed By: #### L 100.0100, L500.4050, L500.4100, L501.2300, L501.5200, L506.0250 ####[facility] [address] [place], [address] Phosphoruson 06-28-2024 Phosphate [Mass/Vol] 3.4 mg/dL Normal 2.5-4.9 [facility] Comment on above: Order Comment: N Performed By: #### L 100.0100, L500.4050, L500.4100, L501.2300, L501.5200, L506.0250 ####[facility] [address] [place], [address] Strep pneumoniae Antig(UR,CS F)on 06-28-2024 STPAG URINE, [...] Test Negative URINE (See interpretation below) Normal [facility] Comment on above: Performed By: #### M 300.4500, M300.4600 ####[facility] [address] [place], [address] Urine Drug Screen (VISTA)on 06-28-2024 AMPHETAMINES Negative Normal <1000 ng/mL [facility] Comment on above: Order Comment: UNK Performed By: #### L 500.4100, L501.9985, L505.5000, L503.0105 ####[facility] [address] [place], [address] BARBITIURATES Negative Normal < 200 ng/mL [facility] Comment on above: Order Comment: UNK Performed By: #### L 500.4100, L501.9985, L505.5000, L503.0105 ####[facility] [address] [place], [address] BENZODIAZIPINE Negative Normal < 200 ng/mL [facility] Comment on above: Order Comment: UNK Performed By: #### L 500.4100, L501.9985, L505.5000, L503.0105 ####[facility] [address] [place], [address] COCAINE Negative Normal < 300 ng/mL [facility] Comment on above: Order Comment: UNK Performed By: #### L 500.4100, L501.9985, L505.5000, L503.0105 ####[facility] [address] [place], [address] ECSTACY Positive Abnormal < 500 ng/mL [facility] Comment on above: Order Comment: UNK Performed By: #### L 500.4100, L501.9985, L505.5000, L503.0105 ####[facility] [address] [place], [address] METHADONE Negative Normal < 300 ng/mL [facility] Comment on above: Order Comment: UNK Performed By: #### L 500.4100, L501.9985, L505.5000, L503.0105 ####[facility] [address] [place], [address] OPIATES Negative Normal < 300 ng/mL [facility] Comment on above: Order Comment: UNK Performed By: #### L 500.4100, L501.9985, L505.5000, L503.0105 ####[facility] [address] [place], [address] PCP Negative Normal < 25 ng/mL [facility] Comment on above: Order Comment: UNK Performed By: #### L 500.4100, L501.9985, L505.5000, L503.0105 ####[facility] [address] [place], [address] THC Positive Abnormal < 50 ng/mL [facility] Comment on above: Order Comment: UNK Performed By: #### L 500.4100, L501.9985, L505.5000, L503.0105 ####[facility] [address] [place], [address] VISTA UDS PH 4 Normal [facility] Comment on above: Order Comment: UNK Performed By: #### L 500.4100, L501.9985, L505.5000, L503.0105 ####[facility] [address] [place], [address] 12 Lead EKGon 06-27-2024 12 Lead EKG [facility] Cardiovascular Services [address] [place] [address] 12 Lead EKG 06/27/24 2217 MR#: [id number] Acct: [id number] Name: AFSHIN ZEE Rep #: [id number] : 1955 68 From: Lissa Michel MD [...] undetermined Abnormal ECG Confirmed by Lissa Michel ([id number]), editor city KHRIS HOPKINS ([id number]) on 06/30/2024 10:26:37 AM Referred By: Confirmed By: Lissa Michel 06/30/24 1026 Date Lissa Michel MD CC: Dr. Dov Marin DO; Dr. Jaci Arroyo MD; Dr. Carlton Lin DO Signed Normal [facility] Basic Metabolic Profile (BMP )on 06-27-2024 BUN/CRE 14.3 RATIO Normal 10-20 [facility] Comment on above: Performed By: #### L 500.2500, L300.3900, L300.4310, L100.0100 #### [facility] Laboratory [address] [place], [address] CA,Total 8.9 mg/dL Normal 8.5-10.1 [facility] Comment on above: Performed By: #### L 500.2500, L300.3900, L300.4310, L100.0100 #### [facility] [address] [place], [address] Chloride [Moles/Vol] 112 mmol/L High 98-107 [facility] Comment on above: Performed By: #### L 500.2500, L300.3900, L300.4310, L100.0100 #### [facility] [address] [place], [address] CO2 [Moles/Vol] 28.0 mmol/L Normal 21.0-32.0 [facility] Comment on above: Performed By: #### L 500.2500, L300.3900, L300.4310, L100.0100 #### [facility] [address] [place], [address] Creatinine [Mass/Vol] 1.19 mg/dL Normal 0.70-1.30 [facility] Comment on above: Result Comment: The validity of the calculated GFR GFRAA in patients over 70 years has not been determined. Clinical correlation is essential. Performed By: #### L 500.2500, L300.3900, L300.4310, L100.0100 #### [facility] [address] [place], [address] ECRCL 67.19 ml/min Normal [facility] Comment on above: Performed By: #### L 500.2500, L300.3900, L300.4310, L100.0100 #### [facility] [address] [place], [address] EST GFR - AA 78 mL/min Normal >60 [facility] Comment on above: Result Comment: Afri can [place] GFR Calc Performed By: #### L 500.2500, L300.3900, L300.4310, L100.0100 #### [facility] [address] [place], [address] GAP 4 Low 5-15 [facility] Comment on above: Performed By: #### L 500.2500, L300.3900, L300.4310, L100.0100 #### [facility] [address] [place], [address] GFR/1.73 sq M.predicted among non-blacks MDRD (S/P/Bld) [Vol rate/Area] 64 mL/min/{1.73_m2} Normal >60 [facility] Comment on above: Result Comment: Non- GFR Calc Performed By: #### L 500.2500, L300.3900, L300.4310, L100.0100 #### [facility] [address] [place], [address] Glucose [Mass/Vol] 127 mg/dL High 74-106 [facility] Comment on above: Result Comment: Fast ing Glucose result greater than or equal to 126 mg/dL suggests DIABETES MELLITUS per A.D.A. criteria. Performed By: #### L 500.2500, L300.3900, L300.4310, L100.0100 #### [facility] [address] [place], [address] Potassium [Moles/Vol] 4.0 mmol/L Normal 3.5-5.1 [facility] Comment on above: Performed By: #### L 500.2500, L300.3900, L300.4310, L100.0100 #### [facility] [address] [place], [address] Sodium [Moles/Vol] 144 mmol/L Normal 136-145 [facility] Comment on above: Performed By: #### L 500.2500, L300.3900, L300.4310, L100.0100 #### [facility] [address] [place], [address] Urea nitrogen [Mass/Vol] 17 mg/dL Normal 7-18 [facility] Comment on above: Performed By: #### L 500.2500, L300.3900, L300.4310, L100.0100 #### [facility] [address] [place], [address] Brain/Head without Contrasto n 06-27-2024 Brain/Head without Contrast [facility] Imaging Services [address] [place] [address] Brain/Head without Contrast MR#: [id number] Acct: [id number] Name: AFSHIN ZEE Rep #: [id number] : 1955 M 68 From: Jonel Soto DO PCP: Dr. Jaci Arroyo MD Status: REG ER Study: Brain/Head without Contrast Date of Exam: 06/06 10/26 Exam# [id number] Ordering Dr: Carlton Lin DO [id number] STUDY: CT BRAIN WITHOUT CONTRAST REASON FOR [...] 22:47 EST Reading Location ID and State: [address] [place] [address] Tel [phone], Service support , CC: Dr. Jaci Arroyo MD; Dr. Carlton Lin DO Reclamation Kettle Tender: Signed Normal [facility] CBC W/Diff, Automatedon 11-2 Absolute Lymph 2.05 X10 3/uL Normal 0.83-4.51 [facility] Comment on above: Performed By: #### L 500.2500, L300.3900, L300.4310, L100.0100 #### [facility] Laboratory [address] [place], [place], [id number] Absolute Neut 5.4 X10 3/uL Normal 2.0-7.7 [facility] Comment on above: Performed By: #### L 500.2500, L300.3900, L300.4310, L100.0100 #### [facility] [address] [place], [place], [id number] (995) Basophils/100 WBC (Bld) 1.0 % Normal 0-1 [facility] Comment on above: Performed By: #### L 500.2500, L300.3900, L300.4310, L100.0100 #### [facility] [address] [place], [address] Eosinophils/100 WBC (Bld) 7.0 % High 0-5 [facility] Comment on above: Performed By: #### L 500.2500, L300.3900, L300.4310, L100.0100 #### [facility] [address] [place], [address] Erythrocyte distribution width (RBC) [Ratio] 12.5 % Normal 11.6-14.6 [facility] Comment on above: Performed By: #### L 500.2500, L300.3900, L300.4310, L100.0100 #### [facility] [address] [place], [address] Hematocrit (Bld) [Volume fraction] 40.6 % Normal 40-54 [facility] Comment on above: Performed By: #### L 500.2500, L300.3900, L300.4310, L100.0100 #### [facility] [address] [place], [address] Hemoglobin (Bld) [Mass/Vol] 13.5 g/dL Normal 13.0-16.5 [facility] Comment on above: Performed By: #### L 500.2500, L300.3900, L300.4310, L100.0100 #### [facility] [address] [place], [address] IG% 1.200 High 0.0-0.9 [facility] Comment on above: Result Comment: IG% - Immature Granulocytes (promyelocytes, myelocytes and metamyelocytes) > 1% indicates that a LEFT SHIFT is Present. Performed By: #### L 500.2500, L300.3900, L300.4310, L100.0100 #### [facility] [address] [place], [address] Lymphocytes/100 WBC (Bld) 22.4 % Normal 19-41 [facility] Comment on above: Performed By: #### L 500.2500, L300.3900, L300.4310, L100.0100 #### [facility] [address] [place], [address] MCH (RBC) [Entitic mass] 30.8 pg Normal 27.0-32.0 [facility] Comment on above: Performed By: #### L 500.2500, L300.3900, L300.4310, L100.0100 #### [facility] [address] [place], [address] MCHC (RBC) [Mass/Vol] 33.3 g/dL Normal 32-36 [facility] Comment on above: Performed By: #### L 500.2500, L300.3900, L300.4310, L100.0100 #### [facility] [address] [place], [address] MCV (RBC) [Entitic vol] 92.7 fL Normal 80-94 [facility] Comment on above: Performed By: #### L 500.2500, L300.3900, L300.4310, L100.0100 #### [facility] [address] [place], [address] Monocytes/100 WBC (Bld) 10.1 % High 0-10 [facility] Comment on above: Performed By: #### L 500.2500, L300.3900, L300.4310, L100.0100 #### [facility] [address] [place], [address] Neutrophils/100 WBC (Bld) 58.3 % Normal 47-70 [facility] Comment on above: Performed By: #### L 500.2500, L300.3900, L300.4310, L100.0100 #### [facility] [address] [place], [address] Nucleated RBC (Bld) [#/Vol] 0 10*3/uL Normal 0-5 [facility] Comment on above: Performed By: #### L 500.2500, L300.3900, L300.4310, L100.0100 #### [facility] [address] [place], [address] Platelet mean volume (Bld) [Entitic vol] 11.2 fL Normal 6.2-12.0 [facility] Comment on above: Performed By: #### L 500.2500, L300.3900, L300.4310, L100.0100 #### [facility] [address] [place], [address] Platelets (Bld) [#/Vol] 218 10*3/uL Normal 150-450 [facility] Comment on above: Performed By: #### L 500.2500, L300.3900, L300.4310, L100.0100 #### [facility] [address] [place], [address] RBC (Bld) [#/Vol] 4.38 10*6/uL Low 4.6-6.2 [facility] Comment on above: Performed By: #### L 500.2500, L300.3900, L300.4310, L100.0100 #### [facility] [address] [place], [address] RDW SD 42.7 fl Normal 35.1-43.9 [facility] Comment on above: Performed By: #### L 500.2500, L300.3900, L300.4310, L100.0100 #### [facility] [address] [place], [address] WBC (Bld) [#/Vol] 9.2 10*3/uL Normal 4.4-11.0 [facility] Comment on above: Performed By: #### L 500.2500, L300.3900, L300.4310, L100.0100 #### [facility] Laboratory [address] [place], [address] Chest 1 View (Portable)on Chest 1 View (Portable) [facility] Imaging Services [address] [place] [address] Chest 1 View (Portable) MR#: [id number] Acct: [id number] Name: AFSHIN ZEE Rep #: [id number] : 1955 M 68 From: Jonel Soto DO PCP: Dr. Jaci Arroyo MD Status: REG ER Study: Chest 1 View (Portable) Date of Exam: 06/27/24 Exam# [id number] Ordering Dr: Carlton Lin DO [id number] INDICATION: cough EXAMINATION/TECHNIQUE: X-RAY - XR Chest [...] Jaci Arroyo MD; Dr. Carlton Lin DO Reclamation Kettle Tender: Signed Normal [facility] Emergency Department Summary on 06-27-2024 Emergency Department Summary [facility] Medical Records Department [address] [place] [address] Emergency Department Summary 06/27/24 MR#: [id number] Acct: [id number] Name: AFSHIN ZEE Rep #: [id number] : 1955 68 From: Carlton Toldeo PCP: Dr. Jaci Arroyo MD Status:ADM JUMANA Location: [place] [address] HPI History of Present Illness Chief Complaint: [...] of stroke History of stroke Stroke/cerebrovascular accident care home current use of amiodarone Chronic atrial fibrillation [...] Unknown Rx (more content not included)... Normal [facility] H AND P Exam - Hospitaliston 06-27-2024 H&P Exam - Hospitalist [facility] Medical Records Department [address] [place] [address] H P Exam - Hospitalist 06/27/24 2351 MR#: [id number] Acct: [id number] Name: AFSHIN ZEE Rep #: [id number] : 1955 68 From: Robin Rodriguez DO PCP: Dr. Jaci Arroyo MD Status:ADM JUMANA Location: [place] [address] HPI - General General Date of Admission: [...] new neurologist, Dr. Aj, who presents to [facility] ER with his complaining of he [...] preexisting Polypharmacy with patient simultaneously on numerous LUMBER INSPECTOR-active agents, including opiates, benzodiazepines and multiple antidepressants [...] of stroke History of stroke Stroke/cerebrovascular accident care home current use of amiodarone Chronic atrial fibrillation Atherosclerosis of coronary artery without angina pectoris Confusion Mixed obstructive and restrictive ventilatory defect Aphasia as late effect of stroke Debility Dysphagia Anemia Lower resp. tract infection Respiratory failure Hyperlipidemia HTN (hypertension) Left acute arterial ischemic stroke, (more content not included)... Normal [facility] Partial Thromboplast Timeon 06-27-2024 aPTT Coag (Bld) [Time] 29.0 s Normal 24.1-36.2 [facility] Comment on above: Performed By: #### L 500.2500, L300.3900, L300.4310, L100.0100 #### [facility] Laboratory [address] [facility] [address] [place], [place], [id number] ([address] Prothrombin Time w/INRon INR Coag (PPP) [Relative time] 1.1 {INR} Normal [facility] Comment on above: Performed By: #### L 500.2500, L300.3900, L300.4310, L100.0100 #### [facility] Laboratory [address] [place], [address] PT Coag (PPP) [Time] 14.0 s Normal 11.7-14.9 [facility] Comment on above: Performed By: #### L 500.2500, L300.3900, L300.4310, L100.0100 #### [facility] Laboratory [address] [place], [address] Urinalysis, Completeon 06-27 YEAST RARE Normal None Seen [facility] Comment on above: Order Comment: CLEAN CATCH Performed By: #### L 500.2500, L300.3900, L300.4310, L100.0100 #### [facility] Laboratory [address] [place], [address] WBC 0-5 SEEN Normal 0-5 [facility] Comment on above: Order Comment: CLEAN CATCH Performed By: #### L 500.2500, L300.3900, L300.4310, L100.0100 #### [facility] Laboratory [address] [place], [address] BACTERIA 0 SEEN Normal None Seen [facility] Comment on above: Order Comment: CLEAN CATCH Performed By: #### L 500.2500, L300.3900, L300.4310, L100.0100 #### [facility] Laboratory [address] [place], [address] EPI,SQUAMOUS 0 SEEN Normal 0-5 [facility] Comment on above: Order Comment: CLEAN CATCH Performed By: #### L 500.2500, L300.3900, L300.4310, L100.0100 #### [facility] Laboratory [address] [place], [address] Mucus Ql (Urine sed) 0 SEEN Normal [facility] Comment on above: Order Comment: CLEAN CATCH Performed By: #### L 500.2500, L300.3900, L300.4310, L100.0100 #### [facility] Laboratory [address] [place], [address] RBC 0 SEEN Normal 0-5 [facility] Comment on above: Order Comment: CLEAN CATCH Performed By: #### L 500.2500, L300.3900, L300.4310, L100.0100 #### [facility] Laboratory [address] [place], [address] 12 Lead EKGon 06-26-2024 12 Lead EKG [facility] Cardiovascular Services [address] [place] [address] 12 Lead EKG 06/26/24 1341 MR#: [id number] Acct: [id number] Name: AFSHIN ZEE Rep #: [id number] : 1955 68 From: Lissa Michel MD [...] undetermined Abnormal ECG Confirmed by Lissa Michel ([id number]), editor city KHRIS HOPKINS ([id number]) on 06/29/2024 6:21:46 AM Referred By: AR Confirmed By: Lissa Michel 06/29/24 0621 Date Lissa Michel MD CC: Dr. Jaci Arroyo MD; Dr. Jasen Dhillon MD; YAW Benz Signed Normal [facility] Basic Metabolic Profile (BMP )on 06-26-2024 BUN/CRE 13.0 RATIO Normal -20 [facility] Comment on above: Performed By: #### L 100.0100, L500.2500 ####[facility] [address] [place], [address] CA,Total 8.9 mg/dL Normal 8.5-10.1 [facility] Comment on above: Performed By: #### L 100.0100, L500.2500 ####[facility] [address] [place], [address] Chloride [Moles/Vol] 111 mmol/L High 98-107 [facility] Comment on above: Performed By: #### L 100.0100, L500.2500 ####[facility] [address] [place], [address] CO2 [Moles/Vol] 29.0 mmol/L Normal 21.0-32.0 [facility] Comment on above: Performed By: #### L 100.0100, L500.2500 ####[facility] [address] [place], [address] Creatinine [Mass/Vol] 1.23 mg/dL Normal 0.70-1.30 [facility] Comment on above: Result Comment: The validity of the calculated GFR GFRAA in patients over 70 years has not been determined. Clinical correlation is essential. Performed By: #### L 100.0100, L500.2500 ####[facility] [address] [place], [address] EST GFR - AA 75 mL/min Normal >60 [facility] Comment on above: Result Comment: Afri can [place]erm[place] GFR Calc Performed By: #### L 100.0100, L500.2500 ####[facility] [address] [place], [address] GAP 2 Low 5-15 [facility] Comment on above: Performed By: #### L 100.0100, L500.2500 ####[facility] [address] [place], [address] GFR/1.73 sq M.predicted among non-blacks MDRD (S/P/Bld) [Vol rate/Area] 62 mL/min/{1.73_m2} Normal >60 [facility] Comment on above: Result Comment: Non- GFR Calc Performed By: #### L 100.0100, L500.2500 ####[facility] [address] [place], [address] Glucose [Mass/Vol] 110 mg/dL High 74-106 [facility] Comment on above: Result Comment: Fast ing Glucose result from 100 to 125 mg/dL suggests IMPAIRED HOMEOSTASIS per A.D.A. criteria. Performed By: #### L 100.0100, L500.2500 ####[facility] [address] [place], [address] Potassium [Moles/Vol] 4.3 mmol/L Normal 3.5-5.1 [facility] Comment on above: Performed By: #### L 100.0100, L500.2500 ####[facility] [address] [place], [address] Sodium [Moles/Vol] 142 mmol/L Normal 136-145 [facility] Comment on above: Performed By: #### L 100.0100, L500.2500 ####[facility] [address] [place], [address] Urea nitrogen [Mass/Vol] 16 mg/dL Normal 7-18 [facility] Comment on above: Performed By: #### L 100.0100, L500.2500 ####[facility] [address] [place], [address] CBC W/Diff, Automatedon 11- Absolute Lymph 2.17 X10 3/uL Normal 0.83-4.51 [facility] Comment on above: Performed By: #### L 100.0100, L500.2500 ####[facility] [address] [place], [address] Absolute Neut 9.7 X10 3/uL High 2.0-7.7 [facility] Comment on above: Performed By: #### L 100.0100, L500.2500 ####[facility] [address] [place], [address] Basophils/100 WBC (Bld) 0.6 % Normal 0-1 [facility] Comment on above: Performed By: #### L 100.0100, L500.2500 ####[facility] [address] [place], [address] Eosinophils/100 WBC (Bld) 6.1 % High 0-5 [facility] Comment on above: Performed By: #### L 100.0100, L500.2500 ####[facility] [address] [place], [address] Erythrocyte distribution width (RBC) [Ratio] 12.7 % Normal 11.6-14.6 [facility] Comment on above: Performed By: #### L 100.0100, L500.2500 ####[facility] [address] [place], [address] Hematocrit (Bld) [Volume fraction] 41.5 % Normal 40-54 [facility] Comment on above: Performed By: #### L 100.0100, L500.2500 ####[facility] [address] [place], [address] Hemoglobin (Bld) [Mass/Vol] 13.7 g/dL Normal 13.0-16.5 [facility] Comment on above: Performed By: #### L 100.0100, L500.2500 ####[facility] [address] [place], [address] IG% 0.900 Normal 0.0-0.9 [facility] Comment on above: Result Comment: IG% - Immature Granulocytes (promyelocytes, myelocytes and metamyelocytes) > 1% indicates that a LEFT SHIFT is Present. Performed By: #### L 100.0100, L500.2500 ####[facility] [address] [place], [address] Lymphocytes/100 WBC (Bld) 15.2 % Low 19-41 [facility] Comment on above: Performed By: #### L 100.0100, L500.2500 ####[facility] [address] [place], [address] MCH (RBC) [Entitic mass] 30.8 pg Normal 27.0-32.0 [facility] Comment on above: Performed By: #### L 100.0100, L500.2500 ####[facility] [address] [place], [address] MCHC (RBC) [Mass/Vol] 33.0 g/dL Normal 32-36 [facility] Comment on above: Performed By: #### L 100.0100, L500.2500 ####[facility] [address] [place], [address] MCV (RBC) [Entitic vol] 93.3 fL Normal 80-94 [facility] Comment on above: Performed By: #### L 100.0100, L500.2500 ####[facility] [address] [place], [address] Monocytes/100 WBC (Bld) 9.2 % Normal 0-10 [facility] Comment on above: Performed By: #### L 100.0100, L500.2500 ####[facility] [address] [place], [address] Neutrophils/100 WBC (Bld) 68.0 % Normal 47-70 [facility] Comment on above: Performed By: #### L 100.0100, L500.2500 ####[facility] [address] [place], [address] Nucleated RBC (Bld) [#/Vol] 0 10*3/uL Normal 0-5 [facility] Comment on above: Performed By: #### L 100.0100, L500.2500 ####[facility] [address] [place], [address] Platelet mean volume (Bld) [Entitic vol] 10.9 fL Normal 6.2-12.0 [facility] Comment on above: Performed By: #### L 100.0100, L500.2500 ####[facility] [address] [place], [address] Platelets (Bld) [#/Vol] 216 10*3/uL Normal 150-450 [facility] Comment on above: Performed By: #### L 100.0100, L500.2500 ####[facility] [address] [place], [address] RBC (Bld) [#/Vol] 4.45 10*6/uL Low 4.6-6.2 [facility] Comment on above: Performed By: #### L 100.0100, L500.2500 ####[facility] [address] [place], [address] RDW SD 43.2 fl Normal 35.1-43.9 [facility] Comment on above: Performed By: #### L 100.0100, L500.2500 ####[facility] [address] [place], [address] WBC (Bld) [#/Vol] 14.3 10*3/uL High 4.4-11.0 [facility] Comment on above: Performed By: #### L 100.0100, L500.2500 ####[facility] [address] [place], [address] Chest 1 View (Portable)on Chest 1 View (Portable) [facility] Imaging Services [address] [place] [address] Chest 1 View (Portable) MR#: [id number] Acct: [id number] Name: AFSHIN ZEE Henri Rep #: [id number] : 1955 M 68 From: Juan R Quinn MD PCP: Dr. Jaci Arroyo MD Status: REG ER Study: Chest 1 View (Portable) Date of Exam: 06/26/24 Exam# [id number] Ordering Dr: Ricardo Wilburn [id number] EXAM: XR CHEST, 1 VIEW CLINICAL INDICATION: [...] EST , CC: Dr. 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 [facility] ([id number]) 1955 M Date Time Provider Department 06/25/24 JACI ARROYO [facility] During your visit today, we recorded [...] (FLONASE) 50 mcg/actuation nasal spray Use 1 Premium in each nostril twice daily. Rinse mouth after use. - Blood Pressure Monitor kit 1 application twice daily. Measure patient for correct size. Patient needs cuff for left arm readings. - COMPOUNDED PRESCRIPTION Articulating AFO foot brace for right leg. Send to [email or web address]. Dx: I63.9 - COMPOUNDED PRESCRIPTION EMBER WALKER DX I63.9 weight 162 # Problem List As Of Date 06/25/2024 Noted Resolved Hyperlipidemia [E78.5] 06/06/2010 Elevated blood pressure [GHZ1099] 06/06/2010 03/20/2019 Erectile dysfunction [N52.9] 06/06/2010 Cervicalgia [M54.2] 04/16/2016 Chronic right shoulder pain [M25.511, G89.29] 04/16/2016 Occlusion of left carotid artery [I65.22] 07/02/2016 Stroke (cerebrum) (HCC) [I63.9] Aneurysm (HCC) [I72.9] Essential hypertension [I10] 06/25/2017 Anxiety [F41.9] 09/04/2017 Chronic insomnia [F51.04] 04/04/2018 Right hemiplegia (HCC) [G81.91] 04/30/2018 Bradycardia [R00.1 (more content not included)... [facility] ([id number]) 1955 M Date Time Provider Department 06/25/24 [...] (FLONASE) 50 mcg/actuation nasal spray Use 1 Premium in each nostril twice daily. Rinse mouth after use. - Blood Pressure Monitor kit 1 application twice daily. Measure patient for correct size. Patient needs cuff for left arm readings. - COMPOUNDED PRESCRIPTION Articulating AFO foot brace for right leg. Send to [email or web address]. Dx: I63.9 - COMPOUNDED PRESCRIPTION EMBER WALKER DX I63.9 weight 162 # Problem List As Of Date 06/25/2024 Noted Resolved Hyperlipidemia [E78.5] 06/06/2010 Elevated blood pressure [HCC5700] 06/06/2010 03/20/2019 Erectile dysfunction [N52.9] 06/06/2010 Cervicalgia [M54.2] 04/16/2016 Chronic right shoulder pain [M25.511, G89.29] 04/16/2016 Occlusion of left carotid artery [I65.22] 07/02/2016 Stroke (cerebrum) (HCC) [I63.9] Aneurysm (HCC) [I72.9] Essential hypertension [I10] 06/25/2017 Anxiety [F41.9] 09/04/2017 Chronic insomnia [F51.04] 04/04/2018 Right hemiplegia (HCC) [G81.91] 04/30/2018 Bradycardia [R00.1] 03/20/2019 Dysphasia [R47.02] Coronary artery disease involving unalakleet matos*04/02/2021 Paroxysmal atrial fibrillation (HCC) [I48.0] 04/03/2021 [...] disease, unspecif (more content not included)... Normal [facility] 06-24-2024 [facility] Telephone (FAMPWS) AFSHIN ZEE ([id number]) 1955 M Date Time Provider Department 06/24/24 JACI ARROYO During your visit today, we recorded the following information about you: Loida Vazquez FOAM RUBBER MIXER 06/24/2024 10:09 AM Signed Patient Eli calling [...] states he had an EEG done at [facility] which was ordered by Neurologist Dr. Aj. [...] Fully Assessed Reason for Visit: Medication Question [8878] Prescriptions as of 06/25/2024 - clotrimazole-betametha sone [...] (FLONASE) 50 mcg/actuation nasal spray Use 1 Premium in each nostril twice daily. Rinse mouth after use. - Blood Pressure Monitor kit 1 application twice daily. Measure patient for correct size. Patient needs cuff for left arm readings. - COMPOUNDED PRESCRIPTION Articulating AFO foot brace for right leg. Send to [email or web address]. Dx: I63.9 - COMPOUNDED PRESCRIPTION EMBER WALKER DX I63.9 weight 162 # Problem List As Of Date 06/24/2024 Noted Resolved Hyperlipidemia [E78.5] 06/06/2010 Elevated blood pressure [[id number]] 06/06/2010 03/20/2019 Erectile dysfunction [N52.9] (more content not included)... Normal [facility]eda 06-23-2024 [facility] Telephone (NIQ) AFSHIN ZEE ([id number]) 1955 M Date Time Provider Department 06/23/24 DANIA AJ JR During your visit today, we recorded the following information about you: Jayde Laughlin RN 06/23/2024 8:17 AM Signed Patient's Eli calls and is asking about EEG results that were done at [facility] on 06/15/2024. Please review and advise, DIANE Power Brittany L, MA 06/23/2024 4:46 PM Signed Please review results. Christina Ozuna MA View External Procedures - EEG [ID [id number]] Dania Aj Jr., MD 06/24/2024 12:38 PM [...] for pain. (more content not included)... Normal [facility]Autotether[facility] AFSHIN ZEE ([id number]) 1955 M Date Time Provider Department 06/18/24 JACI ARROYO [facility] During your visit today, we recorded the following information about you: Kimo Adamson MA 06/18/2024 2:56 PM Signed Patient is having colonoscopy 06/29 but not sure which medication need help for procedure. Aware sending to provider admissions clerk since pcp is out of office. Verified [...] 06/19/2024 8:32 AM Signed Jorge Cardoso MD [facility] Pool I don't stop anticoagulants. [...] (FLONASE) 50 mcg/actuation nasal spray Use 1 Premium in each nostril twice daily. Rinse mouth after use. - Blood Pressure Monitor kit 1 application twice daily. Measure patient for correct size. Patient needs cuff for left arm readings. - COMPOUNDED PRESCRIPTION Articulating AFO foot brace for right leg. Send to [email or web address]. Dx: I63.9 - COMPOUNDED PRESCRIPTION EMBER WALKER DX I63.9 weight 162 # Problem List As Of Date 06/18/2024 Noted Resolved Hyperlipidemia [E78.5] 06/06/2010 Elevated blood pressure [AQD5309] 06/06/2010 03/20/2019 Erectile dysfunction [N52.9] 06/06/2010 Cervicalgia [M54.2] 04/16/2016 Chronic right shoulder pain [M25.511, G89.29] 04/16/2016 Occlusion of left carotid artery [I65.22] 07/02/2016 Stroke (cerebrum) (HCC) [I63.9] Aneurysm (HCC) [I72.9] Essential hypertension [I10] 06/25/2017 Anxiety [F41.9] 09/04/2017 Chronic insomnia [F51.04] 04/04/2018 Right hemiplegia ([facility]) [G81.91] 04/30/2018 Bradycardia (more content not included)... Normal [facility] CNPN Telephone (FAMPWS) AFSHIN ZEE ([id number]) 1955 M Date Time Provider Department 06/18/24 JACI ARROYO FAMPWS During your visit today, we recorded the following information about you: Kimo Adamson MA 06/18/2024 11:11 AM Signed Prior Authorization has been completed online at [employer] for Amiodarone, will await response. LORD- [id number] Please keep encounter open until final decision [...] (FLONASE) 50 mcg/actuation nasal spray Use 1 Premium in each nostril twice daily. Rinse mouth after use. - Blood Pressure Monitor kit 1 application twice daily. Measure patient for correct size. Patient needs cuff for left arm readings. - COMPOUNDED PRESCRIPTION Articulating AFO foot brace for right leg. Send to [email or web address]. 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] 07/02/2016 Stroke (cerebrum) (HCC) [I63.9] Aneurysm (HCC) [I72.9] Essential hypertension [I10] 06/25/2017 Anxiety [F41.9] 09/04/2017 Chronic insomnia [F51.04] 04/04/2018 Right hemiplegia (HCC) [G81.91] 04/30/2018 Bradycardia [R00.1] 03/20/2019 Dysphasia [R47.02] Coronary artery disease involving unalakleet matos*04/02/2021 Paroxysmal atrial fibrillation (HCC) [I48.0] 04/03/2021 Aphasia as late effect of cerebrovascular accid*05/10/2022 Bacterial pneumonia [J15.9] 11/17/2022 03/12/2023 Tracheostomy status (HCC) [Z93.0] 12/04/2022 02/26/2023 Respiratory failure, unspecified chronicity, un*03/07/2023 03/12/2023 Stage 3a chronic kidney disease (HCC) [N18.31] 03/07/2023 COPD with exacerbation (HCC) [J44.1] 03/12/2023 03/12/2023 Centrilobular em (more content not included)... Normal [facility] CNPNon 06-02-2024 CNPN Telephone (NSEAP) ZEEAFSHIN ([id number]) 1955 M Date Time Provider Department 06/02/24 [...] Zee, 1955). Yes Number to return call [phone] Reason for Call: Patient spouse is calling regarding schedule CTA HEAD AND NECK. I advised imaging is already order in the chart. I transferred her for scheduling. Please call [phone] to provide any other follow up instructions. Thank you. Thank you calling [facility]. You will receive a return call within [...] (FLONASE) 50 mcg/actuation nasal spray Use 1 Premium in each nostril twice daily. Rinse mouth after use. - Blood Pressure Monitor kit 1 application twice daily. Measure patient for correct size. Patient needs cuff for left arm readings. - COMPOUNDED PRESCRIPTION Articulating AFO foot brace for right leg. Send to [email or web address]. Dx: I63.9 - COMPOU (more content not included)... Normal [facility] Ankle min 3 Viewson 05-28-20 Ankle min 3 Views [facility] [address] [place] [address] Ankle min 3 Views MR#: [id number] Acct: [id number] Name: AFSHIN ZEE Rep #: [id number] : 1955 M 68 From: Kendra Sanches MD PCP: Dr. Jaci Arroyo MD Status: DEP AMB Study: Ankle min 3 Views Date of Exam: 05/28/24 Exam# [id number] Ordering Dr: Davin Kim MD [id number] EXAM: XR RIGHT ANKLE COMPLETE, 3 OR [...] ankle. Bridging callus at the fractures. No jersey bone destruction. Electronically Signed: Kendra Sanches MD at 18:34 EDT , CC: Dr. Jaci Arroyo MD; Dr. Davin Kim MD Reclamation Kettle Tender: Signed [facility] 05-28-2024 [facility] Telephone (FAMPWS) AFSHIN ZEE ([id number]) 1955 M Date Time Provider Department 05/28/24 JACI ARROYO [facility] During your visit today, we recorded [...] (FLONASE) 50 mcg/actuation nasal spray Use 1 Premium in each nostril twice daily. Rinse mouth after use. - Blood Pressure Monitor kit 1 application twice daily. Measure patient for correct size. Patient needs cuff for left arm readings. - COMPOUNDED PRESCRIPTION Articulating AFO foot brace for right leg. Send to [email or web address]. Dx: I63.9 - COMPOUNDED PRESCRIPTION EMBER WALKER DX I63.9 weight 162 # Problem List As Of Date 05/28/2024 Noted Resolved Hyperlipidemia [E78.5] 06/06/2010 Elevated blood pressure [RKU4213] 06/06/2010 03/20/2019 Erectile dysfunction [N52.9] 06/06/2010 Cervicalgia [M54.2] 04/16/2016 Chronic right shoulder pain [M25.511, G89.29] 04/16/2016 Occlusion of left carotid artery [I65.22] 07/02/2016 Stroke (cerebrum) (HCC) [I63.9] Aneurysm (HCC) [I72.9] Essential hypertension [I10] 06/25/2017 Anxiety [F41.9] 09/04/2017 Chronic insomnia [F51.04] 04/04/2018 Right hemiplegia (HCC) [G81.91] 04/30/2018 Bradycardia [R00.1] 03/20/2019 Dysphasia [R47.02] Coronary artery disease involving unalakleet matos*04/02/2021 Paroxysmal atrial fibrillation (HCC) [I48.0] 04/03/2021 Aphasia as late effect of cerebrovascular accid*05/10/2022 Bacterial pn (more content not included)... Normal [facility] ([id number]) 1955 M Date Time Provider Department 05/28/24 [facility] During your visit today, we recorded [...] (FLONASE) 50 mcg/actuation nasal spray Use 1 Premium in each nostril twice daily. Rinse mouth after use. - Blood Pressure Monitor kit 1 application twice daily. Measure patient for correct size. Patient needs cuff for left arm readings. - COMPOUNDED PRESCRIPTION Articulating AFO foot brace for right leg. Send to [email or web address]. Dx: I63.9 - COMPOUNDED PRESCRIPTION EMBER WALKER DX I63.9 weight 162 # Problem List As Of Date 05/28/2024 Noted Resolved Hyperlipidemia [E78.5] 06/06/2010 Elevated blood pressure [VAK9760] 06/06/2010 03/20/2019 Erectile dysfunction [N52.9] 06/06/2010 Cervicalgia [M54.2] 04/16/2016 Chronic right shoulder pain [M25.511, G89.29] 04/16/2016 Occlusion of left carotid artery [I65.22] 07/02/2016 Stroke (cerebrum) (HCC) [I63.9] Aneurysm (HCC) [I72.9] Essential hypertension [I10] 06/25/2017 Anxiety [F41.9] 09/04/2017 Chronic insomni (more content not included)... Normal [facility] Orthopedic Visit Reporton Orthopedic Visit Report [facility] [place] [address] OFFICE VISIT Date of Service: 05/28/24 MR#: [id number] Acct: [id number] Name: AFSHIN ZEE Rep #: [id number] : 1955 Provider: Dr. 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 Normal [facility] Low Dose CT Lung Screeningon 05-26-[address] Lung Screening [facility] Imaging Services [address], [place] [address] Low Dose CT Lung Screening MR#: [id number] Acct: [id number] Name: AFSHIN ZEE Rep #: [id number] : 1955 M 68 From: Jorge Sharma MD PCP: Dr. Jaci Arroyo MD Status: [facility] Study: Low Dose CT Lung Screening Date of Exam: 05/26 Exam# [id number] Ordering Dr: Kimo Mcgrath MD [id number] STUDY: LOW DOSE CT LUNG CANCER SCREENING [...] Kimo Mcgrath MD; Dr. Jaci Arroyo MD Reclamation Kettle Tender: Signed Normal [facility] CNPNon 05-22-2024 CNPN Telephone (MALIK) YAYOAFSHIN ([id number]) 1955 M Date Time Provider Department 05/22/24 [...] will need cancelled again. Callback number is [phone]. .JAVI Cool Kathleen, LPN 05/22/2024 1:07 PM Signed Spoke with [facility] precert. They are awaiting response from F [...] (FLONASE) 50 mcg/actuation nasal spray Use 1 Premium in each nostril twice daily. Rinse mouth after use. - Blood Pressure Monitor kit 1 application twice daily. Measure patient for correct size. Patient needs cuff for left arm readings. - COMPOUNDED PRESCRIPTION Articulating AFO foot brace for right leg. Send to [email or web address]. Dx: I63.9 - COMPOUNDED PRESCRIPTION EMBER WALKER DX I63.9 weight 162 # Problem List As Of Date 05/22/2024 Noted Resolved Hyperlipidemia [E78.5] 06/06/2010 Elevated blood pressure [HMF9858] 06/06/2010 03/20/2019 Erectile dysfunction [N52.9] 06/06/2010 Cervicalgia [M54.2] 04/16/2016 Chronic right shoulder pain [M25.511, G89.29] 04/16/2016 Occlusion of left carotid artery [I65.22] 07/02/2016 Stroke (cerebrum) (HCC) [I63.9] Aneurysm (HCC) [I72.9] Essential hypertension [I10] 06/25/2017 Anxiety [F41.9] 09/04/2017 Chronic insomnia [F51.04] 04/04/2018 Right hemiplegia (HCC) [G81.91] 04/30/2018 Bradycardia [R00.1] 03/20/2019 Dysphasia [R47.02] Coronary artery disease involving unalakleet matos*04/02/2021 Paroxysmal atrial fibrillation (HCC) [I48.0] 04/03/2021 Aphasia as late effect of cerebrovascular accid*05/10/2022 Bacterial pneumonia [J15.9] more content not included)... [facility] AF[facility] Z[facility] ([id number]) 1955 M Date Time Provider Department 05/21/24 [...] Out of state residents must be in [place] at the time of their virtual visit. Virtual will sign up Specific day of the week or time of day? Wednesdays Do you prefer to be notified of your appointment by phone or [employer] message? Phone call Thank you for speaking with me today. Your information will now be forwarded to our endovascular advance practice provider team to review and provide scheduling recommendations. Please allow 3 business days to hear back from us. If you do not, feel free to call back [phone] for an update. Sol Beasley 05/21/2024 4:33 PM Signed Called pt and left VM with appointment details [facility] 05/22/2024 9:48 AM Signed Mrs. Zee is calling to say they prefer to see a surgeon instead on [facility]. She is scheduled with [place] as a virtual visit. Would still prefer virtual visit but only with staff surgeon. Please call Eli at [phone]. Milly Armendariz 05/25/2024 8:22 AM Addendum 05.22.24 9:47am Mrs. Zee LVM on intake line stating that her is setup to see an PHYSICIAN OFFICE CLIN ASST on July 06, yet VM left for [...] Reason for Visit: Future Appointment [256] Cmt: [facility] any Prescriptions as of 05/27/2024 - OXYGEN, [...] mg (65 (more content not included)... 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 Compliant with his medications at this time. Does report that he has occasional staring off episodes, but dye mixer states that he is always distractible when [...] and volume (more content not included)... Normal [facility] 05-14-2024 [facility] Telephone (FAMPWS) AFSHIN ZEE ([id number]) 1955 M Date Time Provider Department 05/14/24 JACI ARROYO [facility] During your visit today, we recorded the following information about you: Loida Vazquez LPN 05/14/2024 2:25 PM Signed Flaquita from [facility] calling asking for order for oxygen for the patient to have set up in [place] on 05/22 for several days. She can not tell me if he is going to have testing or vacationing there. The original provider who ordered his oxygen back in 2021 was Earl Pate from [facility]. She is asking for orders to be faxed to [phone]. She is going to reach out and talk to patient to find out more information about this trip. Please advise Jaci Arroyo MD 05/14/2024 4:39 PM Signed Order printed MD Marcio Mahtew Rilee, MA 05/14/2024 4:46 PM Signed Order [...] (FLONASE) 50 mcg/actuation nasal spray Use 1 Premium in each nostril twice daily. Rinse mouth after use. - Blood Pressure Monitor kit 1 application twice daily. Measure patient for correct size. Patient needs cuff for left arm readings. - COMPOUNDED PRESCRIPTION Articulating AFO foot brace for right leg. Send to [email or web address]. Dx: I63.9 - COMPOUNDED PRESCRIPTION EMBER WALKER DX I63.9 weight 162 # Problem List As Of Date 05/14/2024 Noted Resolved Hyperlipidemia [E78.5] 06/06/2010 Elevated blood pressure [GYC5335] 06/06/2010 03/20/2019 Erectile dysfunction [N52.9] 06/06/2010 Cervicalgia [M54.2] 04/16/2016 Chronic right shoulder pain [M25.511, G89.29] 04/16/2016 Occlusion of left carotid artery [I65.22] 07/02/2016 Stroke (cerebrum) (HCC) [I63.9] Aneurysm (HC (more content not included)... [facility]PUL[facility] AFSHIN Z[facility] ([id number]) 1955 M Date Time Provider Department 05/14/24 KIMO MCGRATH PULMilanWS During your visit today, we recorded the following information about you: Kia Waters LPN 05/14/2024 4:37 PM Signed Flaquita from [facility]. She is asking for updated oxygen orders [...] (FLONASE) 50 mcg/actuation nasal spray Use 1 Premium in each nostril twice daily. Rinse mouth after use. - Blood Pressure Monitor kit 1 application twice daily. Measure patient for correct size. Patient needs cuff for left arm readings. - COMPOUNDED PRESCRIPTION Articulating AFO foot brace for right leg. Send to [email or web address]. Dx: I63.9 - COMPOUNDED PRESCRIPTION EMBER WALKER DX I63.9 weight 162 # Problem List As Of Date 05/14/2024 Noted Resolved Hyperlipidemia [E78.5] 06/06/2010 Elevated blood pressure [CVY8431] 06/06/2010 03/20/2019 Erectile dysfunction [N52.9] 06/06/2010 Cervicalgia [M54.2] 04/16/2016 Chronic right shoulder pain [M25.511, G89.29] 04/16/2016 Occlusion of left carotid artery [I65.22] 07/02/2016 Stroke (cerebrum) (HCC) [I63.9] Aneurysm (HCC) [I72.9] Essential hypertension [I10] 06/25/2017 Anxiety [F41.9] 09/04/2017 Chronic insomnia [F51.04] 04/04/2018 Right hemiplegia (HCC) [G81.91] 04/30/2018 Bradycardia [R00.1] 03/20/2019 Dysphasia [R47.02] Coronary artery disease involving unalakleet matos*04/02/2021 Paroxysmal atrial fibrillation (HCC) [I48.0] 04/03/2021 Aphasia as late effect of cerebrovascular accid*05/10/2022 Bacterial pneumonia [J15.9] 11/17/2022 03/12/2023 Tracheostomy status (HCC) [Z93.0] 12/04/2022 02/26/2023 Respiratory failure, unspecified chronicity, un*03/07/2023 03/12/2023 Stage 3a chronic kidney disease (HCC) [N18.31] 03/07/2023 COPD with exacerbation (HCC) [J44.1] 03/12/2023 03/12/2023 Centrilobular emphysema (HCC) [J (more content not included)... Normal [facility] 05-08-2024 [facility] Telephone (RITIKA) AFSHIN ZEE ([id number]) 1955 M Date Time Provider Department 05/08/24 [...] is soon enough for patient's appt with [employer]? Please advise . Dania Aj Jr., MD [...] [I67.1] Order(s):CONSULT TO NEUROSURGERY [19990811] Order #: [id number]: 1 FUTURE Prescriptions as of 05/08/2024 - [...] (FLONASE) 50 mcg/actuation nasal spray Use 1 Premium in each nostril twice daily. Rinse mouth after use. - Blood Pressure Monitor kit 1 application twice daily. Measure patient for correct size. Patient needs cuff for left arm readings. - COMPOUNDED PRESCRIPTION Articulating AFO foot brace for right leg. Send to [email or web address]. Dx: I63.9 - COMPOUNDED PRESCRIPTION EMBER WALKER DX I63.9 we (more content not included)... Normal [facility] MR Brain WO contraston 05-07 * * *Final Report* * * DATE OF EXAM: May 07 2024 2:20PM [facility] 0294 - MRI BRAIN WO IVCON / [...] gradient echo images. Intracranial and carotid 3D laut-ab-xhkxva MRA with post-processing performed at the modality [...] and SCAs are visualized proximally. The proximal healthcare administrator are within normal limits of caliber and [...] RADIOLOGY Provider, Nadeem Fair [facility] - 05/07/2024 * * *Final Report* * [...] gradient echo images. Intracranial and carotid 3D mguc-jl-jyqteu MRA with post-processing performed at the modality [...] and SCAs are visualized proximally. The proximal healthcare administrator are within normal limits of caliber and [...] 11/10/2016. No acute findings on today's exam. Xftd-sn-xchhfa MRA demonstrates complete occlusion of the left internal carotid artery immediately after the common carotid bifurcation. 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 There is reconstitution of the left MCA via collateral flow via the left JENNIFER and left posterior communicating a (more content not included)... [facility] MRA BRAIN WO IVCONon 10-03-2 024 MRA [...] gradient echo images. Intracranial and carotid 3D wuqv-td-wzyeic MRA with post-processing performed at the modality [...] and SCAs are visualized proximally. The proximal healthcare administrator are within normal limits of caliber and [...] 11/10/2016. No acute findings on today's exam. Yrue-nn-ihmufy MRA demonstrates complete occlusion of the left [...] artery. Immediately (more content not included)... Normal [facility] MRA CAROTID WO IVCONon 05-07 MRA CAROTID WO IVCON * * *Final Report* * * DATE OF EXAM: May 07 2024 2:20PM [facility] 0275 - MRA CAROTID WO IVCON / [...] gradient echo images. Intracranial and carotid 3D vtji-kx-ufcfos MRA with post-processing performed at the modality [...] and SCAs are visualized proximally. The proximal healthcare administrator are within normal limits of caliber and [...] 11/10/2016. No acute findings on today's exam. Btyr-bd-fbmldp MRA demonstrates complete occlusion of the left [...] artery. Immediately (more content not included)... Normal [facility] MRA Head vessels WO contrast on 05-07-2024 * * *Final Report* * * DATE OF EXAM: May 07 2024 2:20PM [facility] 0272 - MRA BRAIN WO IVCON / [...] gradient echo images. Intracranial and carotid 3D hjhi-gg-asuiqu MRA with post-processing performed at the modality [...] and SCAs are visualized proximally. The proximal healthcare administrator are within normal limits of caliber and [...] Bilateral Dominance: Codominant DIVISION OF RADIOLOGY Provider, [facility] - 05/07/2024 * * *Final Report* * * DATE OF EXAM: May 07 2024 2:20PM [facility] 0272 - MRA BRAIN WO IVCON / [...] gradient echo images. Intracranial and carotid 3D hpzt-wh-unztql MRA with post-processing performed at the modality [...] and SCAs are visualized proximally. The proximal healthcare administrator are within normal limits of caliber and [...] 11/10/2016. No acute findings on today's exam. Wpwe-hr-kdivjf MRA demonstrates complete occlusion of the left internal carotid artery immediately after the common carotid bifurcation. 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 There is reconstitution of the left MCA via collateral flow via the left JENNIFER and left posterior communicating a (more content not included)... [facility] MRA Neck vessels WO contrast on 05-07-2024 * * *Final Report* * * DATE OF EXAM: May 07 2024 2:20PM [facility] 0275 - MRA CAROTID WO IVCON / [...] gradient echo images. Intracranial and carotid 3D ukwh-nt-zwodbf MRA with post-processing performed at the modality [...] and SCAs are visualized proximally. The proximal healthcare administrator are within normal limits of caliber and [...] Bilateral Dominance: Codominant DIVISION OF RADIOLOGY Provider, [facility] - 05/07/2024 * * *Final Report* * * DATE OF EXAM: May 07 2024 2:20PM [facility] 0275 - MRA CAROTID WO IVCON / [...] gradient echo images. Intracranial and carotid 3D yxiz-nk-mhuowd MRA with post-processing performed at the modality [...] and SCAs are visualized proximally. The proximal healthcare administrator are within normal limits of caliber and [...] 11/10/2016. No acute findings on today's exam. Crit-uc-lvmmmz MRA demonstrates complete occlusion of the left internal carotid artery immediately after the common carotid bifurcation. 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 There is reconstitution of the left MCA via collateral flow via the left JENNIFER and left posterior communicating (more content not included)... [facility] MRI BRAIN WO IVCONon 10-03-2 024 MRI BRAIN WO IVCON * * *Final Report* * * DATE OF EXAM: May 07 2024 2:20PM [facility] 0294 - MRI BRAIN WO IVCON / [...] gradient echo images. Intracranial and carotid 3D mmfz-tu-jnmipe MRA with post-processing performed at the modality [...] and SCAs are visualized proximally. The proximal healthcare administrator are within normal limits of caliber and [...] 11/10/2016. No acute findings on today's exam. Lttz-il-wpvtet MRA demonstrates complete occlusion of the left [...] artery. Immediately (more content not included)... Normal [facility] No Panel InformationOrdered By: Ccf Provider on 05-07-2024 [facility] No Panel Informationon 05-07 Radiology Study observation (narrative) [facility]GENblogfosterS[facility] AFSHIN ZEE ([id number]) 1955 M Date Time Provider Department 05/06/24 JORGE CARDOSO GENSWS During your visit today, we recorded the following information about you: Meka Mireles 05/06/2024 10:37 AM Signed Pt spouse calling about getting information on Colonoscopy. She wants to be sure that the prep is sent to the right Pharmacy. [facility] open, will want it to go to [facility]. She also wants to confirm the time [...] prescription will need to be sent to [facility]. Also, I cannot confirm the time, could a airline station agent please contact the patient's , Eli? Lora [...] unsuccessful. Date is set for 06/29/[address] [place] [address] Cardoso and times are NEVER given until the business day prior. Times on [facility] are not correct and subject to change. They will receive accurate arrival time the business day prior. Left voicemail for patient and Eli to call me back directly at [phone] to go over information again. Patient is needing prep Golytely sent to [facility] in [place] as it was never sent originally. Sharon Hinojosa Peanut Cleaner Nikkie Prado APRN.ESTELLA 05/06/2024 3:20 PM Signed GoLytely sent to [facility]. Allergies As of Date: 05/06/2024 Noted [...] mouth da (more content not included)... Normal [facility] 12 Lead EKGon 04-08-2024 12 Lead EKG [facility] Cardiovascular Services [address] [place] [address] 12 Lead EKG 04/08/24 1917 MR#: [id number] Acct: [id number] Name: AFSHIN ZEE Rep #: [id number] : 1955 68 From: Lion Randhawa MD [...] Abnormal ECG Confirmed by LION RANDHAWA MD ([id number]), editor city KHRIS HOPKINS ([id number]) on 04/09/2024 1:53:05 PM Referred By: Confirmed By:LION RANDHAWA MD 04/09/24 1353 Date Lion Randhawa MD CC: Dr. Jaci Arroyo MD; Dr. Roosevelt Torre DO Signed Normal [facility] Basic Metabolic Profile (BMP )on 04-08-2024 BUN/CRE 10.3 RATIO Normal 10-20 [facility] Comment on above: Order Comment: 'TROP ' Serial specimen #1, #2 or #3: 1 Performed By: #### L 100.0500, L500.2500, L501.4020 #### [facility] Laboratory [address] [place], [address] CA,Total 9.1 mg/dL Normal 8.5-10.1 [facility] Comment on above: Order Comment: 'TROP ' Serial specimen #1, #2 or #3: 1 Performed By: #### L 100.0500, L500.2500, L501.4020 #### [facility] [address] [place], [address] Chloride [Moles/Vol] 110 mmol/L High 98-107 [facility] Comment on above: Order Comment: 'TROP ' Serial specimen #1, #2 or #3: 1 Performed By: #### L 100.0500, L500.2500, L501.4020 #### [facility] [address] [place], [address] CO2 [Moles/Vol] 28.0 mmol/L Normal 21.0-32.0 [facility] Comment on above: Order Comment: 'TROP ' Serial specimen #1, #2 or #3: 1 Performed By: #### L 100.0500, L500.2500, L501.4020 #### [facility] Laboratory [address] [place], [address] Creatinine [Mass/Vol] 1.56 mg/dL High 0.70-1.30 [facility] Comment on above: Order Comment: 'TROP ' Serial specimen #1, #2 or #3: 1 Result Comment: The validity of the calculated GFR GFRAA in patients over 70 years has not been determined. Clinical correlation is essential. Performed By: #### L 100.0500, L500.2500, L501.4020 #### [facility] [address] [place], [address] EST GFR - AA 57 mL/min Low >60 [facility] Comment on above: Order Comment: 'TROP ' Serial specimen #1, #2 or #3: 1 Result Comment: Afri can [place] GFR Calc Performed By: #### L 100.0500, L500.2500, L501.4020 #### [facility] [address] [place], [address] GAP 3 Low 5-15 [facility] Comment on above: Order Comment: 'TROP ' Serial specimen #1, #2 or #3: 1 Performed By: #### L 100.0500, L500.2500, L501.4020 #### [facility] [address] [place], [address] GFR/1.73 sq M.predicted among non-blacks MDRD (S/P/Bld) [Vol rate/Area] 47 mL/min/{1.73_m2} Low >60 [facility] Comment on above: Order Comment: 'TROP ' Serial specimen #1, #2 or #3: 1 Result Comment: Non- GFR Calc Performed By: #### L 100.0500, L500.2500, L501.4020 #### [facility] [address] [place], [address] Glucose [Mass/Vol] 110 mg/dL High 74-106 [facility] Comment on above: Order Comment: 'TROP ' Serial specimen #1, #2 or #3: 1 Result Comment: Fast ing Glucose result from 100 to 125 mg/dL suggests IMPAIRED HOMEOSTASIS per A.D.A. criteria. Performed By: #### L 100.0500, L500.2500, L501.4020 #### [facility] [address] [place], [address] Potassium [Moles/Vol] 4.3 mmol/L Normal 3.5-5.1 [facility] Comment on above: Order Comment: 'TROP ' Serial specimen #1, #2 or #3: 1 Performed By: #### L 100.0500, L500.2500, L501.4020 #### [facility] [address] [place], [address] Sodium [Moles/Vol] 141 mmol/L Normal 136-145 [facility] Comment on above: Order Comment: 'TROP ' Serial specimen #1, #2 or #3: 1 Performed By: #### L 100.0500, L500.2500, L501.4020 #### [facility] [address] [place], [address] Urea nitrogen [Mass/Vol] 16 mg/dL Normal 7-18 [facility] Comment on above: Order Comment: 'TROP ' Serial specimen #1, #2 or #3: 1 Performed By: #### L 100.0500, L500.2500, L501.4020 #### [facility] [address] [place], [address] Brain/Head without Contrasto n 04-08-2024 Brain/Head without Contrast [facility] Imaging Services [address] [place] [address] Brain/Head without Contrast MR#: [id number] Acct: [id number] Name: AFSHIN ZEE Rep #: [id number] : 1955 M 68 From: Rony Pappas PCP: Dr. Jaci Arroyo MD Status: REG ER Study: Brain/Head without Contrast Date of Exam: 11/26 Exam# [id number] Ordering Dr: Roosevelt Torre DO [id number] STUDY: CT BRAIN WITHOUT CONTRAST REASON FOR [...] Jaci Arroyo MD; Dr. Roosevelt Torre DO Reclamation Kettle Tender: Signed Normal [facility] CBC-Complete Blood Cnt No Di ffon 04-08-2024 Erythrocyte distribution width (RBC) [Ratio] 13.1 % Normal 11.6-14.6 [facility] Comment on above: Performed By: #### L 100.0500, L500.2500, L501.4020 #### [facility] Laboratory [facility] [place], [address] Hematocrit (Bld) [Volume fraction] 38.4 % Low 40-54 [facility] Comment on above: Performed By: #### L 100.0500, L500.2500, L501.4020 #### [facility] Laboratory [address] [place], [address] Hemoglobin (Bld) [Mass/Vol] 12.5 g/dL Low 13.0-16.5 [facility] Comment on above: Performed By: #### L 100.0500, L500.2500, L501.4020 #### [facility] Laboratory [address] [place], [address] MCH (RBC) [Entitic mass] 30.0 pg Normal 27.0-32.0 [facility] Comment on above: Performed By: #### L 100.0500, L500.2500, L501.4020 #### [facility] Laboratory [address] [place], [address] MCHC (RBC) [Mass/Vol] 32.6 g/dL Normal 32-36 [facility] Comment on above: Performed By: #### L 100.0500, L500.2500, L501.4020 #### [facility] [address] [place], [address] MCV (RBC) [Entitic vol] 92.3 fL Normal 80-94 [facility] Comment on above: Performed By: #### L 100.0500, L500.2500, L501.4020 #### [facility] Laboratory [address] [place], [address] Platelet mean volume (Bld) [Entitic vol] 10.9 fL Normal 6.2-12.0 [facility] Comment on above: Performed By: #### L 100.0500, L500.2500, L501.4020 #### [facility] Laboratory [address] [place], [address] Platelets (Bld) [#/Vol] 248 10*3/uL Normal 150-450 [facility] Comment on above: Performed By: #### L 100.0500, L500.2500, L501.4020 #### [facility] Laboratory [address] [place], [address] RBC (Bld) [#/Vol] 4.16 10*6/uL Low 4.6-6.2 [facility] Comment on above: Performed By: #### L 100.0500, L500.2500, L501.4020 #### [facility] Laboratory [address] [place], [address] RDW SD 43.9 fl Normal 35.1-43.9 [facility] Comment on above: Performed By: #### L 100.0500, L500.2500, L501.4020 #### [facility] Laboratory [address] [place], [address] WBC (Bld) [#/Vol] 12.3 10*3/uL High 4.4-11.0 [facility] Comment on above: Performed By: #### L 100.0500, L500.2500, L501.4020 #### [facility] Laboratory [address] [place], [address] Chest 1 View (Portable)on Chest 1 View (Portable) [facility] Imaging Services [address] [place] [address] Chest 1 View (Portable) MR#: [id number] Acct: [id number] Name: ZEEAFSHIN Henri Rep #: [id number] : 1955 M 68 From: Rony Pappas PCP: Dr. Jaci Arroyo MD Status: [facility] ER Study: Chest 1 View (Portable) Date of Exam: 04/08/24 Exam# [id number] Ordering Dr: Roosevelt Torre DO [id number] STUDY: X-RAY CHEST REASON FOR EXAM: Male, [...] Jaci Arroyo MD; Dr. Roosevelt Torre DO Reclamation Kettle Tender: Signed Normal [facility] Emergency Department Summary on 04-08-2024 Emergency Department Summary [facility] Medical Records Department [address] [place] [address] Emergency Department Summary 04/08/24 MR#: [id number] Acct: [id number] Name: AFSHIN ZEE Rep #: [id number] : 1955 68 From: Roosevelt Torre DO PCP: Dr. Jaci Arroyo MD Status:REG ER Location: ED HPI HPI - Fall History of Present Illness Chief Complaint: Fall [facility] Medical History Ambulates with cane Anemia Anxiety [...] ischemic stroke, MCA (middle cerebral artery) (10/31/16) care home current use of amiodarone Lower resp. tract [...] Exam Co (more content not included)... Normal [facility] L501.4020on 04-08-2024 TROPONIN-I HS 5 pg/mL Normal 3.0-78.0 [facility] Comment on above: Order Comment: 'TROP ' Serial specimen #1, #2 or #3: 1 Result Comment: Plea se Note: New Test Units and Gender Specific Reference Ranges. For more information see Policy Stat Procedure [place] High Sensitivity Troponin (TNIH) and attachments. Performed By: #### L 100.0500, L500.2500, L501.4020 #### [facility] Laboratory [address] [facility] [place], [address] Spine Cervical without Contr ason 04-08-2024 Spine Cervical without Contras [facility] Imaging Services [address] [place] [address] Spine Cervical without Contras MR#: [id number] Acct: [id number] Name: AFSHIN ZEE Rep #: [id number] : 1955 M 68 From: Rony Pappas PCP: Dr. Jaci Arroyo MD Status: REG ER Study: Spine Cervical without Contras Date of Exam: 0 04/08/24 Exam# [id number] Ordering Dr: Roosevelt Torre DO [id number] STUDY: CT CERVICAL SPINE WITHOUT CONTRAST REASON [...] 21:30 EDT Reading Location ID and State: [address] [place] [address] Tel , Service support , CC: Dr. Jaci Arroyo MD; Dr. Rooesvelt Torre DO Reclamation Kettle Tender: Signed Normal [facility] Urinalysis, Completeon 04-08 WBC 5-10 SEEN Normal 0-5 [facility] Comment on above: Order Comment: CLEAN CATCH Performed By: #### L 400.0001 ####[facility] [address] [place], [address] BACTERIA 0 SEEN Normal None Seen [facility] Comment on above: Order Comment: CLEAN CATCH Performed By: #### L 400.0001 ####[facility] [address] [place], [address] EPI,SQUAMOUS 0 SEEN Normal 0-5 [facility] Comment on above: Order Comment: CLEAN CATCH Performed By: #### L 400.0001 ####[facility] [address] [place], [address] Mucus Ql (Urine sed) 0 SEEN Normal [facility] Comment on above: Order Comment: CLEAN CATCH Performed By: #### L 400.0001 ####[facility] [address] [place], [address] RBC 0 SEEN Normal 0-5 [facility] Comment on above: Order Comment: CLEAN CATCH Performed By: #### L 400.0001 ####[facility] [address] [place], [place], [address] CNOVon 04-03-2024 CNOV Office Visit (FAMPWS ) AFSHIN ZEE ([id number]) 1955 M Date Time Provider Department 04/03/24 [...] Currently receiving PT/OT and Speech through [facility]. Hx of rectal mass, follow with Colorectal [...] maybe he needs to be in a mcfp for a little while and do some out patient counseling. Pt is agreeable, he states he wants to be in a mcfp. Cardio: Hx of CAD, Afib and HTN. [...] with Neurology, Dr. Aj and Dena Bazan, [facility] and Dr. Cruz in Vascular. Pt was [...] [place] OT provider [facility] that came out and fitted him for the hand stimulator. Unsure where to go to get stimulator now that the lady at [facility] is no longer there. Pulm: Follows with Dr. Mcgrath for COPD and hx of respiratory infection and pneumonia. Pt uses O2 at night. Overall from pt and Pulm, pt is stable cu (more content not included)... [facility] Tele[facility] (INTMWS) AFSHIN ZEE ([id number]) 1955 Date Time Provider Department 04/03/24 JACI ARROYO INTMWS During your visit today, we recorded the following information about you: Rikirey ShefaliJAVI 04/03/2024 4:36 PM Signed Electronic PA rec'd and completed for lorazepam. This was approved. Prior authorization approved Payer: [employer] [id number] Note from payer: CaseId:[id number];Status :Approved;Review Type:Prior Auth;Coverage Start Date:03/04/2024;Covera ge End [...] To be filled at: e- [id number] [place] [address] - [address] [facility] [phone] [address] Allergies As of Date: 04/03/2024 Noted Allergy [...] Fully Assessed Reason for Visit: Insurance Authorization [[id number]] Prescriptions as of 04/03/2024 - LORazepam (ATIVAN) [...] (FLONASE) 50 mcg/actuation nasal spray Use 1 Premium in each nostril twice daily. Rinse mouth after use. - Blood Pressure Monitor kit 1 application twice daily. Measure patient for correct size. Patient needs cuff for left arm readings. - COMPOUNDED PRESCRIPTION Articulating AFO foot brace for right leg. Send to [email or web address]. Dx: I63.9 - COMPOUNDED PRESCRIPTION EMBER WALKER DX I63.9 weight 162 # Problem List As Of Date 04/03/2024 Noted Resolved Hyperlipidemia [E78.5] 06/06/2010 Elevated blood pressure [PZU5068] 06/06/2010 03/20/2019 Erectile dysfunction [N52.9] 06/06/2010 Cervicalgia [M54.2] 04/16/2016 Chronic right shoulder pain [M25.511, G89.29] 04/16/2016 Occlusion of left carotid artery [I65.22] 07/02/2016 Stroke (cerebrum) (HCC) [I63.9] Aneurysm (HCC) [I72.9] Essential hypertension [I10] 06/25/2017 Anxiety [F41.9] 09/04/2017 Chronic insomnia [F51.04] 04/04/2018 (more content not included)... Normal [facility] Comprehensive metabolic 2000 panelon 04-02-2024 Albumin [Mass/Vol] 4.0 g/dL Normal 3.9-4.[address] [facility] Comment on above: Order Comment: Speci men Type: BLOOD SPECIMEN Ordering Facility: [facility] Address: [address] [place] [address] Performed By: #### 2 4323-8, 61330-9, 3016-3, 75531-2 #### [facility] CLIA [id number] [address] [place] [address] [place] ALP [Catalytic activity/Vol] 113 U/L Normal 38-113 [facility] Comment on above: Order Comment: Speci men Type: BLOOD SPECIMEN Ordering Facility: [facility] Address: [address] [place] [address] Performed By: #### 2 4323-8, 17266-2, 3016-3, 69695-2 #### [facility] CLIA [id number] [address] [place] [address] [place] ALT [Catalytic activity/Vol] 18 U/L Normal 10-54 [facility] Comment on above: Order Comment: Speci men Type: BLOOD SPECIMEN Ordering Facility: [facility] Address: [address] [place] [address] Performed By: #### 2 4323-8, 17431-6, 3015-3, 04591-3 #### [facility] CLIA [id number] [address] [place] [address] [place] Anion gap [Moles/Vol] 9 mmol/L Normal 8-15 [facility] Comment on above: Order Comment: Speci men Type: BLOOD SPECIMEN Ordering Facility: [facility] Address: [address] [place] [address] Performed By: #### 2 4323-8, 29388-5, 3015-3, 56773-6 #### [facility] CLIA [id number] [address] [place] [address] [place] AST [Catalytic activity/Vol] 18 U/L Normal 14-40 [facility] Comment on above: Order Comment: Speci men Type: BLOOD SPECIMEN Ordering Facility: [facility] Address: [address] [place] [address] Performed By: #### 2 4323-8, 63315-8, 6-3, 49967-4 #### [facility] CLIA [id number] [address] [place] [address] [place] Bilirubin [Mass/Vol] 0.8 mg/dL Normal 0.2-1.3 [facility] Comment on above: Order Comment: Speci men Type: BLOOD SPECIMEN Ordering Facility: [facility] Address: [address] [place] [address] Performed By: #### 2 4323-8, 21694-1, 3015-3, 18714-2 #### [facility] CLIA [id number] [address] [place] [address] [place] Calcium [Mass/Vol] 8.7 mg/dL Normal 8.5-10.[address] [facility] Comment on above: Order Comment: Speci men Type: BLOOD SPECIMEN Ordering Facility: [facility] Address: [address] [place] [address] Performed By: #### 2 4323-8, 80965-7, 3015-3, 60201-4 #### [facility] CLIA [id number] [address] [place] [address] [place] Chloride [Moles/Vol] 105 mmol/L Normal 98-107 [facility] Comment on above: Order Comment: Speci men Type: BLOOD SPECIMEN Ordering Facility: [facility] Address: [address] [place] [address] Performed By: #### 2 4323-8, 28184-1, 3015-3, 46062-7 #### [facility] CLIA [id number] [address] [place] [address] [place] CO2 [Moles/Vol] 27 mmol/L Normal 22-30 [facility] Comment on above: Order Comment: Speci men Type: BLOOD SPECIMEN Ordering Facility: [facility] Address: [address] [place] [address] Performed By: #### 2 4323-8, 04907-3, 3015-3, 82313-2 #### [facility] CLIA [id number] [address] [place] [address] [place] Creatinine [Mass/Vol] 1.28 mg/dL High 0.73-1.22 [facility] Comment on above: Order Comment: Amalia akhtar Type: BLOOD SPECIMEN Ordering Facility: [facility] Address: [address] [place] [address] Performed By: #### 2 4323-8, 47645-0, 3016-3, 19953-3 #### [facility] CLIA [id number] [address] [place] [address] [place] Creatinine and Glomerular filtration rate.predicted panel (S/P/Bld) 61 mL/min/1.73m??? Normal >=60 [facility] Comment on above: Order Comment: Amalia akhtar Type: BLOOD SPECIMEN Ordering Facility: [facility] Address: [address] [place] [address] Result Comment: Eufemia mated Glomerular Filtration Rate [...] actual GFR. Performed By: #### 2 4323-8, 05613-2, 3016-3, 52200-7 #### [facility] CLIA [id number] [address] [place] [address] [place] Glucose [Mass/Vol] 91 mg/dL Normal 74-[address] [facility] Comment on above: Order Comment: Amalia akhtar Type: BLOOD SPECIMEN Ordering Facility: [facility] Address: [address] [place] [address] Result Comment: The [place] Diabetes Association (ADA) provides guidance for cutoff [...] Standards of Medical Care in Diabetes 2016, [place] Diabetes Association. Diabetes Care. 2016.39(Suppl 1). Performed By: #### 2 4323-8, 94987-6, 3015-3, 09576-6 #### [facility] CLIA [id number] [address] [place] [address] [place] Potassium [Moles/Vol] 4.5 mmol/L Normal 3.7-5.1 [facility] Comment on above: Order Comment: Speci men Type: BLOOD SPECIMEN Ordering Facility: [facility] Address: [address] [place] [address] Performed By: #### 2 4323-8, 65513-4, 3, 16214-0 #### [facility] CLIA [id number] [address] [place] [address] [place] Protein [Mass/Vol] 6.6 g/dL Normal 6.3-8.[address] [facility] Comment on above: Order Comment: Melvini men Type: BLOOD SPECIMEN Ordering Facility: [facility] Address: [address] [place] [address] Performed By: #### 2 4323-8, 84100-9, 3, 94473-3 #### [facility] CLIA [id number] [address] [place], [place] [address] [place] Sodium [Moles/Vol] 141 mmol/L Normal 136-[address] [facility] Comment on above: Order Comment: Speci men Type: BLOOD SPECIMEN Ordering Facility: [facility] Address: [address] [place] [address] Performed By: #### 2 4323-8, 14186-8, 3015-3, 65909-0 #### [facility] CLIA [id number] [address] [place] [address] [place] Urea nitrogen [Mass/Vol] 15 mg/dL Normal 9-24 [facility] Comment on above: Order Comment: Speci men Type: BLOOD SPECIMEN Ordering Facility: [facility] Address: [address] [place] [address] Performed By: #### 2 4323-8, 49519-1, 3016-3, 97624-3 #### [facility] CLIA [id number] [address] [place], [place] [address] [place] Ferritin SerPl-ncon 2023 Ferritin [Mass/Vol] 68.0 ng/mL Normal 30.3-565.7 [facility] Comment on above: Order Comment: Speci men Type: BLOOD SPECIMENOrdering Facility: [facility] Address: [address] [place] [address] Performed By: #### 2 276-4 ####[facility] [id number] [place] [id number] [place] Iron and Iron binding capaci ty panelon 04-02-2024 Iron [Mass/Vol] 112 ug/dL Normal 41-186 [facility] Comment on above: Order Comment: Speci men Type: BLOOD SPECIMEN Ordering Facility: [facility] Address: [address] [place] [address] Performed By: #### 2 4323-8, 56500-3, 3016-3, 18478-3 #### [facility] CLIA [id number] [address] [place], [place] [address] [place] Iron binding capacity [Mass/Vol] 295 ug/dL Normal 232-386 [facility] Comment on above: Order Comment: Speci men Type: BLOOD SPECIMEN Ordering Facility: [facility] Address: [address] [place] [address] Performed By: #### 2 4323-8, 99404-7, 3, 68023-8 #### [facility] CLIA [id number] [address] [place] [address] [place] Iron/TIBC [Molar ratio] 38.0 % Normal 15.0-57.0 C [facility] Comment on above: Order Comment: Speci men Type: BLOOD SPECIMEN Ordering Facility: [facility] Address: [address] [place] [address] Performed By: #### 2 4323-8, 19766-3, 3, #### [facility] CLIA [id number] [address] [place] [address] [place] Lipid 1996 panelon 4 Cholesterol [Mass/Vol] 122 mg/dL Normal <200 [facility] Comment on above: Order Comment: Speci men Type: BLOOD SPECIMEN Ordering Facility: [facility] Address: [address] [place] [address] Result Comment: <200 mg/dL, Desirable 200-239 mg/dL, Borderline high >239 mg/dL, High Performed By: #### 2 4323-8, 82369-8, 3015-10, #### [facility] CLIA [id number] [address] [place] [address] [place] Cholesterol in HDL [Mass/Vol] 37 mg/dL Low >39 [facility] Comment on above: Order Comment: Speci men Type: BLOOD SPECIMEN Ordering Facility: [facility] Address: [address] [place] [address] Result Comment: 40-5 9 mg/dL, Acceptable >59 mg/dL, High: Negative risk factor for coronary heart disease <40 mg/dL, Low: Positive risk factor for coronary heart disease Performed By: #### 2 4323-8, 99407-6, 3015-3, 70591-0 #### [facility] CLIA [id number] [address] [place] [address] [place] Cholesterol in LDL [Mass/Vol] 61 mg/dL Normal <100 [facility] Comment on above: Order Comment: Amalia akhtar Type: BLOOD SPECIMEN Ordering Facility: [facility] Address: [address] [place] [address] Result Comment: <100 mg/dL, Optimal 100-129 mg/dL, Near optimal/above optimal 130-159 mg/dL, Borderline high 160-189 mg/dL, High >189 mg/dL, Very high Secondary prevention optimal LDL Cholesterol levels are recommended to be < 70 mg/dL Performed By: #### 2 4323-8, 42100-2, 3016-3, 82898-1 #### [facility] CLIA [id number] [address] [place], [place] [address] [place] [address] [place] Cholesterol in LDL/Cholesterol in HDL [Mass ratio] 1.65 {ratio} Normal <2.54 [facility] Comment on above: Order Comment: Amalia akhtar Type: BLOOD SPECIMEN Ordering Facility: [facility] Address: [address] [place] [address] Result Comment: Refe rence: 1. National Cholesterol Education Program ATP III Guideline At-A-Glance Quick Desk Reference: National Heart, Lung, and Blood Norris. National Institutes of Health. 2001: NIH Publication No. 01-3305. 2. An International Atherosclerosis Society position paper: global recommendations for the management of dyslipidemia: executive summary, Atherosclerosis. 2014: 232(2):410-413. Performed By: #### 2 4323-8, 05160-2, 3015-3, 70008-7 #### [facility] CLIA [id number] [address] [place], [place] [address] [place] [address] [place] Cholesterol in VLDL [Mass/Vol] 24 mg/dL Normal <30 [facility] Comment on above: Order Comment: Amalia akhtar Type: BLOOD SPECIMEN Ordering Facility: [facility] Address: [address] [place] [address] Performed By: #### 2 4323-8, 87346-3, 3016-3, 79830-3 #### [facility] CLIA [id number] [address] [place] [address] [place] Cholesterol non HDL [Mass/Vol] 85 mg/dL Normal <130 [facility] Comment on above: Order Comment: Speci men Type: BLOOD SPECIMEN Ordering Facility: [facility] Address: [address] [place] [address] Result Comment: <130 mg/dL, Optimal 130-159 mg/dL, Near optimal/above optimal 160-189 mg/dL, Borderline high 190-219 mg/dL, High >219 mg/dL, Very high Secondary prevention optimal non HDL Cholesterol levels are recommended to be <100 mg/dL Performed By: #### 2 4323-8, 39674-3, 3016-3, 93847-5 #### [facility] CLIA [id number] [address] [place] [address] [place] Cholesterol.total/Choles terol in HDL [Mass ratio] 3.30 {ratio} Normal <5.10 [facility] Comment on above: Order Comment: Speci men Type: BLOOD SPECIMEN Ordering Facility: [facility] Address: [address] [place] [address] Performed By: #### 2 4323-8, 11123-1, 3016-3, 31583-0 #### [facility] CLIA [id number] [address] [place] [address] [place] FASTING TIME 12 hrs Normal [facility] Comment on above: Order Comment: Speci men Type: BLOOD SPECIMEN Ordering Facility: [facility] Address: [address] [place] [address] Performed By: #### 2 4323-8, 82227-6, 3016-3, 76786-4 #### [facility] CLIA [id number] [address] [place] [address] [place] Triglyceride [Mass/Vol] 121 mg/dL Normal <150 C [facility] Comment on above: Order Comment: Speci men Type: BLOOD SPECIMEN Ordering Facility: [facility] Address: [address] [place] [address] Result Comment: <150 mg/dL, Normal 150-199 mg/dL, Borderline high 200-499 mg/dL, High >499 mg/dL, Very high Performed By: #### 2 4323-8, 13692-4, 3016-3, 31865-8 #### [facility] CLIA [id number] [address] [place] [address] OF [place] TSH SerPl-aCncon 04-02-2024 TSH Qn 1.420 m[IU]/L Normal 0.270-4.200 [facility] Comment on above: Order Comment: Speci men Type: BLOOD SPECIMENOrdering Facility: [facility] Address: [address] [place] [address] Performed By: #### 2 4323-8, 75746-4, 3016-3, 75628-7 ####[facility] [id number] [address] OF [place] CNPTabby [facility]-01-2024 [facility] AF[facility] ([id number]) 1955 M Date Time Provider Department 04/01/24 [facility] During your visit today, we recorded [...] (FLONASE) 50 mcg/actuation nasal spray Use 1 Premium in each nostril twice daily. Rinse mouth after use. - Blood Pressure Monitor kit 1 application twice daily. Measure patient for correct size. Patient needs cuff for left arm readings. - COMPOUNDED PRESCRIPTION Articulating AFO foot brace for right leg. Send to [email or web address]. Dx: I63.9 - COMPOUNDED PRESCRIPTION EMBER WALKER DX I63.9 weight 162 # Problem List As Of Date 04/01/2024 Noted Resolved Hyperlipidemia [E78.5] 06/06/2010 Elevated blood pressure [WFM0358] 06/06/2010 03/20/2019 Erectile dysfunction [N52.9] 06/06/2010 Cervicalgia [M54.2] 04/16/2016 Chronic right shoulder pain [M25.511, G89.29] 04/16/2016 Occlusion of left carotid artery [I65.22] 07/02/2016 Stroke (cerebrum) (HCC) [I63.9] Aneurysm (HCC) [I72.9] Essential hypertension [I10] 06/25/2017 Anxiety [F41.9] 09/04/2017 Chronic insomnia [F51.04] 04/04/2018 Right hemiplegia (HCC) [G81.91] 04/30/2018 Bradycardia [R00.1] 03/20/2019 Dysphasia [R47.02] Coronary artery disease involving unalakleet matos*04/02/2021 Paroxysmal atrial fibrillation (HCC) [I48.0] 04/03/2021 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 Normal [facility] OT D/C Summaryon 04-01-2024 OT D/C Summary [facility] Occupational Therapy [facility] [address] [place] [address] / REHABILITATION SERVICES DISCHARGE SUMMARY MR#: [id number] Acct: [id number] Name: AFSHIN ZEE Rep #: [id number] : 1955 68 From: Hansa Linn OTR/L, [...] please fell free to call me at [phone]. Thank you for the referral of this patient. Sincerely, MARIANN Macdonald/Hailey, CHT 04/01/24 2430 CC: Dr. Jaci Arroyo MD; Dr. Davin Kim MD MK Signed Normal [facility] SP/HP.SPREEVon 03-30-2024 SP/HP.SPREEV [facility] Speech Pathology [address] [place] [address] / REEVALUATION / MEDICARE RECERTIFICATION SPEECH THERAPY MR#: [id number] Acct: [id number] Name: AFSHIN ZEE Rep #: [id number] : 1955 68 From: Isa Kramer Referring Dr.: Dr. Davin Kim MD Insurance: [facility] Visit History Visit Info Date of Eval: 11/18/23 Visit: 1 Patient's Approved Number of Visits: 48 Insurance Date Limit: 08/04/24 Property Management Specialist: GIANLUCA History Attending Doctor: Referring Doctor: Reason for Referral: STROKE,ANKLE FX,DYSPHAGIA, APHASIA/RX HERE Medical Diagnosis: cva Previous speech therapy: Yes Results: Afshin is a 68 year old male who was seen at [facility] for a speech language and swallwoing evaluation. Pt was referred by his doctor due to ongoing communication and swallowing difficulty. Pt was accompanied by his , Vicki, who was present for the session and is his P.O.A. Other Relevant Medical History/Diagnoses/Surg memo: Afshin had a CVA 7 years ago, He was in the [facility] for 3 months from August 08 through October. Pt was accompanied by his who is his POA. Pt has an [place] device from [place], that he did not have present today. Pt doesn't use it often, but can use it for choosing restaurants, yes/no, Smoking Status: Former smoker Diagnosis Diagnosis: severe expressive and receptive aphasia; unspecified dysphagia Pain Is pain an issue with your current prescribed condition?: No Personal Preferred language: [place] Patient Allergies Allergies Allergies: Allergies azithromycin (From [...] PC Grandson (Bryan) - Repeated Address ([address], [place]) - repeated with max cues Previous [...] of difficulty (more content not included)... Normal [facility] SP/SP.Stan 03-30-2024 SP/SP.PETE [facility] Speech Pathology [facility] [address] [place] [address]. [address] [place] [address] Fax REHABILITATION SERVICES PROGRESS NOTE MR#: [id number] Acct: [id number] Name: AFSHIN ZEE Rep #: [id number] : 1955 68 From: Isa Kramer Referring Dr.: Dr. Davin Kim MD Status:REG RCR Insurance: [facility] Patient Information Date of Evaluation: 03/09/24 Time [...] airway prote (more content not included)... Normal [facility] PT D/C Summary (1)on 024 PT D/C Summary (1) [facility] Physical Therapy [facility] [address] [place] [address]. [address] [place] [address] / REHABILITATION SERVICES DISCHARGE SUMMARY MR#: [id number] Acct: [id number] Name: AFSHIN ZEE Rep #: [id number] : 1955 68 From: Myron Gillette DPT Referring Dr.: Dr. Davin Kim MD Status: R EG RCR Insurance: [facility] Discharge Summary D/C summary: It has [...] please feel free to call me at [phone]. Thank you for the referral of this patient. Sincerely, Myron Gillette, DPT Balance/Gait/Functiona l tests Balance/Special Test Scores Lower Extremity Functional Score: 34 TUG Test Time Seconds: 18.7 Tug Test: <20 sec.=mostly independent 30 Second Chair Rise Test Seconds: 12 Improvement % Improvement: 80 03/25/24 1720 CC: Dr. Jaci Arroyo MD; Dr. Davin Kim MD CLS Signed Normal [facility] CNOVon 03-23-2024 CNOV Office Visit ([facility] ) AFSHIN ZEE ([id number]) 1955 M Date Time Provider Department 03/23/24 2:45 PM KIMO MCGRATH [facility] During your visit today, we recorded the following information about you: Kimo Mcgrath MD 03/23/2024 3:36 PM Signed . Respiratory Norris Note Patient name: Afshin Zee PCP: Jaci Arroyo MD CC: Follow-up COPD HPI: Afshin Zee 68 year old male former 87-yivj-linc smoker, quitting in 2016 with PMH significant [...] needed albuterol. Last lung cancer screening at [facility] negative for any suspicious lesions. From a [...] Imaging / Diagnostic Studies: 05/22/2023, 2:56 PM [facility] Low Dose CT Lung Screening NODULES: [...] MEDICAL HISTORY No date: Acute cerebral infarction ([facility]) Comment: left No date: LEANN (acute kidney injury) ([facility]) No date: Anemia No date: Aneurysm ([facility]) No date: Anxiety state 11/2016: Atrial fibrillation ([facility]) No date: Balanitis No date: CAD (coronary artery disease) No date: Carotid stenosis No date: COPD (chronic obstructive pulmonary disease) ([facility]) No date: Dysphasia No date: Emphysema lung ([facility]) 03/2023: History of blood transfusion No date: Hypertension 03/2023: Hypoxia No date: DARON (obstructive sleep apnea) No date: PVD (peripheral vascular disease) ([facility]) No date: Respiratory failure ([facility]) Comment: hypoxic-ventilator dependent No date: Stroke (cerebrum) ([facility]) No date: Tobacco abuse ALLERGIES Allergen Reactions [...] 90 mcg/ac (more content not included)... Normal [facility] Re-Evaluation - PT (1)on Re-Evaluation - PT (1) [facility] Physical Therapy [address] [place] [address] / REEVALUATION / MEDICARE RECERTIFICATION PHYSICAL THERAPY MR#: [id number] Acct: [id number] Name: AFSHIN ZEE Rep #: [id number] : 1955 68 From: Myron Gillette DPT Referring Dr.: Dr. Davin Kim MD Status:REG RCR Insurance: [facility] Re-Evaluation Intro: Dr. Davin Kim MD, [...] do not hesitate to contact me at [phone] by phone or if you have questions or concerns regarding this new plan of care! Sincerely, Myron Gillette, DPT 02/18/24 1318 CC: Dr. Jaci Arroyo MD; Dr. Davin Kim MD CLS Signed For Medicare only, by signing this I certify the plan of care. Physicians Signature Date Normal [facility] Inital Evaluation (1) - PTon 11-19-2023 Inital Evaluation (1) - PT [facility] Physical Therapy [address] [place] [address] / REHABILITATION SERVICES INITIAL EVALUATION MR#: [id number] Acct: [id number] Name: AFSHIN ZEE Rep #: [id number] : 1955 68 From: Myron Gillette DPT Referring Dr.: Dr. Davin Kim MD Status: R EG RCR Insurance: [facility] Patient's Visit Information Visit Information Visit [...] Pt. fell in Jul. he went to [facility] for a few weeks. He is now [...] to be FAXED BACK to us at [phone] for Medicare purposes. For Medicare only, by signing this I certify the plan of care. Please let me know if there are questions or concerns regarding this plan of care. (more content not included)... Normal [facility] OT General Evaluationon 11-03 OT General Evaluation [facility] Occupational Therapy [facility] [address] [place] [address] / REHABILITATION SERVICES INITIAL EVALUATION MR#: [id number] Acct: [id number] Name: AFSHIN ZEE Rep #: [id number] : 1955 68 From: Hansa WAITE/SOSA Hart Referring Dr.: Dr. Davin Kim MD Status: R EG RCR Insurance: [facility] Date: [facility] Patient's Visit Information Visit Information Visit Information: [...] Protection/Energy Conservation, (more content not included)... Normal [facility] SP/HP.SP.Giovanny 11-19-2023 SP/HP.SP.EV [facility] Speech Pathology [address] [place] [address] / REHABILITATION SERVICES INITIAL EVALUATION MR#: [id number] Acct: [id number] Name: AFSHIN ZEE Rep #: [id number] : 1955 68 From: Isa Kramer Referring Dr.: Dr. Davin Kim MD Status: R EG RCR Insurance: [facility] Visit History Visit Info Date of Eval: 11/18/23 Visit: 1 Insurance Date Limit: 08/04/24 Property Management Specialist: GIANLUCA History Attending Doctor: Referring Doctor: Reason for Referral: STROKE,ANKLE FX,DYSPHAGIA, APHASIA/RX HERE Medical Diagnosis: cva Previous speech therapy: Yes Results: Afshin is a 68 year old male who was seen at [facility] for a speech language and swallwoing evaluation. Pt was referred by his doctor due to ongoing communication and swallowing difficulty. Pt was accompanied by his , Vicki, who was present for the session and is his P.O.A. Other Relevant Medical History/Diagnoses/Surg memo: Afshin had a CVA 7 years ago, He was in the [facility] for 3 months from August 08 through [...] current prescribed condition?: No Personal Preferred language: [place] Patient Allergies Allergies Allergies: Allergies azithromycin [From [...] assessment as it can be done at [facility]. Recommendations Swallowing Treatment: Yes Diet Texture Recommendations [...] Subjective: Pt has an aac device from [facility] for basic communication needs. Pt can use the device to pick a place to eat, ask for food at restaurants and answer yes/no questions with help from his . Further practice to effectively utilize the device is required per pt's 's report. Objective Cog/Ling/Com Test Administered Efpesqnmo-Gidivrtghj-B ommunication Assessment Administered: Yes Sqqxgjlfv-Gpuuzjqesr-N ommunication Assessment: Cognitive ??? Linguistic skills were [...] times dur (more content not included)... Normal [facility] Ankle min 3 Viewson 11-04-19 Ankle min 3 Views [facility] [address] [place] [address] Ankle min 3 Views MR#: [id number] Acct: [id number] Name: AFSHIN ZEE Rep #: [id number] : 1955 M 68 From: Brian Arguello MD PCP: Dr. Jaci Arroyo MD Status: REG AMB Study: Ankle min 3 Views Date of Exam: 11/04/23 Exam# [id number] Ordering Dr: Davin Kim MD [id number] STUDY: X-RAY - RIGHT ANKLE REASON FOR [...] 15:46 EDT Reading Location ID and State: [address] [place] [address] , Service support , CC: Dr. Jaci Arroyo MD; Dr. Davin Kim MD Reclamation Kettle Tender: Signed Normal [facility] Orthopedic Visit Reporton Orthopedic Visit Report [facility] [address] [place] [address] OFFICE VISIT Date of Service: 11/04/23 MR#: [id number] Acct: [id number] Name: AFSHIN ZEE Rep #: [id number] : 1955 Provider: Dr. Davin ba MD Age/Sex: 68/M Location: [facility] Status: Signed Intake Vital Signs 08/07/23 14:17 [...] mg PO BID 08/02/23 [History Confirmed 11/04/23] [facility] Medical History Ambulates with cane Anemia Anxiety [...] ischemic stroke, MCA (middle cerebral artery) (10/31/16) care home current use of amiodarone Lower resp. 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 Normal [facility] Ankle min 3 Viewson 09-26-19 24 Ankle min 3 Views [facility] [address] [place] [address] Ankle min 3 Views MR#: [id number] Acct: [id number] Name: AFSHIN ZEE Rep #: [id number] : 1955 M 68 From: Jorge Pappas PCP: Dr. Jaci Arroyo MD Status: DEP AMB Study: Ankle min 3 Views Date of Exam: 09/26/23 Exam# [id number] Ordering Dr: Davin Kim MD [id number] INDICATION: FU EXAMINATION/TECHNIQUE: X-RAY - RIGHT XR [...] Jaci Arroyo MD; Dr. Davin Kim MD Reclamation Kettle Tender: Signed Normal [facility] Orthopedic Visit Reporton Orthopedic Visit Report [facility] [address] [place] [address] [address] [place] [address] OFFICE VISIT Date of Service: 09/26/23 MR#: [id number] Acct: [id number] Name: AFSHIN ZEE Rep #: [id number] : 1955 Provider: Dr. 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 tract [...] how l (more content not included)... Normal [facility] Absolute lymphocyte countOrd ered By: Matt Ashraf on 09-09-2023 Lymphocytes Auto (Unsp spec) [#/Vol] 2.63 10*3/uL 0.83-4.51 [facility] Automated lymphocyte count a s percentage of total leukocytesOrdered By: Matt Ashraf on 09-09-2023 Lymphocytes/100 WBC Auto (Unsp spec) 32.0 % 19-41 [facility] Basophil percentageOrdered B y: Matt Ashraf on 09-09-2023 Basophils/100 WBC (Bld) 1.0 % 0-1 [facility] Chloride [Moles/Vol] 113 mmol/L 98-107 [facility] Eosinophils/100 WBC (Bld) 8.4 % 0-5 [facility] Glucose [Mass/Vol] 86 mg/dL 74-106 [facility] Hemoglobin (Bld) [Mass/Vol] 10.8 g/dL 13.0-16.5 [facility] Monocytes/100 WBC (Bld) 10.4 % 0-10 [facility] Neutrophils (Bld) [#/Vol] 3.9 10*3/uL 2.0-7.7 [facility] Neutrophils/100 WBC (Bld) 47.5 % 47-70 [facility] Potassium [Moles/Vol] 3.6 mmol/L 3.5-5.1 [facility] Sodium [Moles/Vol] 142 mmol/L 136-145 [facility] WBC (Bld) [#/Vol] 8.2 10*3/uL 4.4-11.0 [facility] Determination of erythrocyte mean corpuscular volume (MCV)Ordered By: Matt Ashraf on 09-09-2023 MCV (RBC) [Entitic vol] 92.4 fL 80-94 [facility] Erythrocyte distribution wid th ratioOrdered By: Youngkeavyamadou Ashraf on 09-09-2023 Erythrocyte distribution width (RBC) [Ratio] 14.6 % 11.6-14.6 [facility] Erythrocyte distribution wid th standard deviationOrdered By: Matt Ashraf on 09-09-2023 Erythrocyte distribution width (RBC) [Entitic vol] 48.7 fL 35.1-43.9 [facility] Hematocrit Auto (Bld) [Volum e fraction]Ordered By: Matt Ashraf on 09-09-2023 Hematocrit (Bld) [Volume fraction] 32.7 % 40-54 [facility] Immature granulocytes/100 WB C Auto (Bld)Ordered By: Matt Ashraf on 09-09-2023 Immature granulocytes/100 WBC (Bld) 0.700 % 0.0-0.9 [facility] Comment on above: IG% - Immature Granu locytes (promyelocytes, myelocytes and metamyelocytes) > 1% indicates that a LEFT SHIFT is Present. Laboratory - Chemistry and C hemistry - challengeOrdered By: Matt Ashraf on 09-09-2023 CO2 [Moles/Vol] 26.0 mmol/L 21.0-32.0 [facility] Urea nitrogen/Creatinine [Mass ratio] 17.6 mg/mg 10-20 [facility] Laboratory - Hematology and Cell countsOrdered By: Matt Ashraf on 09-09-2023 MCH (RBC) [Entitic mass] 30.5 pg 27.0-32.0 [facility] MCHC (RBC) [Mass/Vol] 33.0 g/dL 32-36 [facility] Nucleated RBC/100 WBC (Bld) [Ratio] 0 % 0-5 [facility] Platelets (Bld) [#/Vol] 276 10*3/uL 150-450 [facility] No Panel InformationOrdered By: Matt Ashraf on 09-09-2023 Estimated GFR (MDRD) Amer 78 mL/min >60 [facility] Comment on above: GFR Calc Estimated GFR (MDRD) Non-Af Amer 65 mL/min >60 [facility] Comment on above: Non- GFR Calc Platelet mean volume Adriano-Ec ker (Bld) [Entitic vol]Ordered By: Matt Ashraf on 09-09-2023 Platelet mean volume (Bld) [Entitic vol] 10.5 fL 6.2-12.0 [facility] RBC Auto (Bld) [#/Vol]Ordere d By: Matt Ashraf on 09-09-2023 RBC (Bld) [#/Vol] 3.54 10*6/uL 4.6-6.2 [facility] Serum or plasma calcium jerome urement (mass/volume)Ordered By: Matt Ashraf on 09-09-2023 Calcium [Mass/Vol] 8.6 mg/dL 8.5-10.1 [facility] Serum or plasma creatinine m easurement (mass/volume)Ordered By: Matt Ashraf on 09-09-2023 Creatinine [Mass/Vol] 1.19 mg/dL 0.70-1.30 [facility] Comment on above: The validity of the calculated GFR & GFRAA in patients over 70 years has not been determined. Clinical correlation is essential. Serum or plasma urea nitroge n measurement (mass/volume)Ordered By: mathieu Ashraf on 09-09-2023 Urea nitrogen [Mass/Vol] 21 mg/dL 7-18 [facility] Thin prep Papanicolaou smear with manual screeningOrdered By: [facility] on 09-[facility]-2023 Thin prep Papanicolaou smear with manual screening 3 5-15 [facility] Absolute lymphocyte countOrd ered By: [facility] on 09-02-2023 Lymphocytes Auto (Unsp spec) [#/Vol] 2.03 10*3/uL 0.83-4.51 [facility] Automated lymphocyte count a s percentage of total leukocytesOrdered By: mathieu Ashraf on 09-02-2023 Lymphocytes/100 WBC Auto (Unsp spec) 25.7 % 19-41 [facility] Basophil percentageOrdered B y: Matt Ashraf on 09-02-2023 Basophils/100 WBC (Bld) 0.9 % 0-1 [facility] Chloride [Moles/Vol] 115 mmol/L 98-107 [facility] Eosinophils/100 WBC (Bld) 6.7 % 0-5 [facility] Glucose [Mass/Vol] 121 mg/dL 74-106 [facility] Comment on above: Fasting Glucose resu lt from 100 to 125 mg/dL suggests IMPAIRED HOMEOSTASIS per A.D.A. criteria. Hemoglobin (Bld) [Mass/Vol] 11.0 g/dL 13.0-16.5 [facility] Monocytes/100 WBC (Bld) 12.4 % 0-10 [facility] Neutrophils (Bld) [#/Vol] 4.2 10*3/uL 2.0-7.7 [facility] Neutrophils/100 WBC (Bld) 53.4 % 47-70 [facility] Potassium [Moles/Vol] 3.9 mmol/L 3.5-5.1 [facility] Sodium [Moles/Vol] 142 mmol/L 136-145 [facility] WBC (Bld) [#/Vol] 7.9 10*3/uL 4.4-11.0 [facility] Determination of erythrocyte mean corpuscular volume (MCV)Ordered By: Matt Ashraf on 09-02-2023 MCV (RBC) [Entitic vol] 92.9 fL 80-94 [facility] Erythrocyte distribution wid th ratioOrdered By: [facility] on 09-02-2023 Erythrocyte distribution width (RBC) [Ratio] 13.8 % 11.6-14.6 [facility] Erythrocyte distribution wid th standard deviationOrdered By: Youngkeavyamadou Senvijay on 09-02-2023 Erythrocyte distribution width (RBC) [Entitic vol] 46.3 fL 35.1-43.9 [facility] Hematocrit Auto (Bld) [Volum e fraction]Ordered By: Matt Ashraf on 09-02-2023 Hematocrit (Bld) [Volume fraction] 34.1 % 40-54 [facility] Immature granulocytes/100 WB C Auto (Bld)Ordered By: [facility] on 09-02-2023 Immature granulocytes/100 WBC (Bld) 0.900 % 0.0-0.9 [facility] Comment on above: IG% - Immature Granu locytes (promyelocytes, myelocytes and metamyelocytes) > 1% indicates that a LEFT SHIFT is Present. Laboratory - Chemistry and C hemistry - challengeOrdered By: Matt Ashraf on 09-02-2023 CO2 [Moles/Vol] 23.0 mmol/L 21.0-32.0 [facility] Urea nitrogen/Creatinine [Mass ratio] 23.4 mg/mg 10-20 [facility] Laboratory - Hematology and Cell countsOrdered By: Matt Ashraf on 09-02-2023 MCH (RBC) [Entitic mass] 30.0 pg 27.0-32.0 [facility] MCHC (RBC) [Mass/Vol] 32.3 g/dL 32-36 [facility] Nucleated RBC/100 WBC (Bld) [Ratio] 0 % 0-5 [facility] Platelets (Bld) [#/Vol] 275 10*3/uL 150-450 [facility] No Panel InformationOrdered By: Matt Ashraf on 09-02-2023 Estimated GFR (MDRD) Amer 85 mL/min >60 [facility] Comment on above: GFR Calc Estimated GFR (MDRD) Non-Af Amer 70 mL/min >60 [facility] Comment on above: Non- GFR Calc Platelet mean volume Adriano-Ec ker (Bld) [Entitic vol]Ordered By: Matt Ashraf on 09-02-2023 Platelet mean volume (Bld) [Entitic vol] 11.1 fL 6.2-12.0 [facility] RBC Auto (Bld) [#/Vol]Ordere d By: Matt Ashraf on 09-02-2023 RBC (Bld) [#/Vol] 3.67 10*6/uL 4.6-6.2 [facility] Serum or plasma calcium jerome urement (mass/volume)Ordered By: Matt Ashraf on 09-02-2023 Calcium [Mass/Vol] 8.7 mg/dL 8.5-10.1 [facility] Serum or plasma creatinine m easurement (mass/volume)Ordered By: Matt Ashraf on 09-02-2023 Creatinine [Mass/Vol] 1.11 mg/dL 0.70-1.30 [facility] Comment on above: The validity of the calculated GFR & GFRAA in patients over 70 years has not been determined. Clinical correlation is essential. Serum or plasma urea nitroge n measurement (mass/volume)Ordered By: Matt Ashraf on 09-02-2023 Urea nitrogen [Mass/Vol] 26 mg/dL 7-18 [facility] Thin prep Papanicolaou smear with manual screeningOrdered By: Matt Ashraf on 09-02-2023 Thin prep Papanicolaou smear with manual screening 4 5-15 [facility] Absolute lymphocyte countOrd ered By: Matt Ashraf on 08-26-2023 Lymphocytes Auto (Unsp spec) [#/Vol] 2.41 10*3/uL 0.83-4.51 [facility] Automated lymphocyte count a s percentage of total leukocytesOrdered By: Matt Ashraf on 08-26-2023 Lymphocytes/100 WBC Auto (Unsp spec) 27.9 % 19-41 [facility] Basophil percentageOrdered B y: Matt Ashraf on 08-26-2023 Basophils/100 WBC (Bld) 0.8 % 0-1 [facility] Chloride [Moles/Vol] 112 mmol/L 98-107 [facility] Eosinophils/100 WBC (Bld) 6.1 % 0-5 [facility] Glucose [Mass/Vol] 95 mg/dL 74-106 [facility] Hemoglobin (Bld) [Mass/Vol] 12.1 g/dL 13.0-16.5 [facility] Monocytes/100 WBC (Bld) 11.7 % 0-10 [facility] Neutrophils (Bld) [#/Vol] 4.6 10*3/uL 2.0-7.7 [facility] Neutrophils/100 WBC (Bld) 53.0 % 47-70 [facility] Potassium [Moles/Vol] 4.2 mmol/L 3.5-5.1 [facility] Comment on above: Slight Hemolysis, Re sult may be falsely increased. Sodium [Moles/Vol] 140 mmol/L 136-145 [facility] WBC (Bld) [#/Vol] 8.6 10*3/uL 4.4-11.0 [facility] Determination of erythrocyte mean corpuscular volume (MCV)Ordered By: Matt Ashraf on 08-26-2023 MCV (RBC) [Entitic vol] 91.2 fL 80-94 [facility] Erythrocyte distribution wid th ratioOrdered By: mtkeavyamadou Ashraf on 08-26-2023 Erythrocyte distribution width (RBC) [Ratio] 13.3 % 11.6-14.6 [facility] Erythrocyte distribution wid th standard deviationOrdered By: Matt Ashraf on 08-26-2023 Erythrocyte distribution width (RBC) [Entitic vol] 44.4 fL 35.1-43.9 [facility] Hematocrit Auto (Bld) [Volum e fraction]Ordered By: Matt Ashraf on 08-26-2023 Hematocrit (Bld) [Volume fraction] 36.2 % 40-54 [facility] Immature granulocytes/100 WB C Auto (Bld)Ordered By: Matt Ashraf on 08-26-2023 Immature granulocytes/100 WBC (Bld) 0.500 % 0.0-0.9 [facility] Comment on above: IG% - Immature Granu locytes (promyelocytes, myelocytes and metamyelocytes) > 1% indicates that a LEFT SHIFT is Present. Laboratory - Chemistry and C hemistry - challengeOrdered By: Youngkeavyamadou Ashraf on 08-26-2023 CO2 [Moles/Vol] 23.0 mmol/L 21.0-32.0 [facility] Urea nitrogen/Creatinine [Mass ratio] 14.0 mg/mg 10-20 [facility] Laboratory - Hematology and Cell countsOrdered By: Matt Ashraf on 08-26-2023 MCH (RBC) [Entitic mass] 30.5 pg 27.0-32.0 [facility] MCHC (RBC) [Mass/Vol] 33.4 g/dL 32-36 [facility] Nucleated RBC/100 WBC (Bld) [Ratio] 0 % 0-5 [facility] Platelets (Bld) [#/Vol] 280 10*3/uL 150-450 [facility] No Panel InformationOrdered By: Matt sAhraf on 08-26-2023 Estimated GFR (MDRD) Amer 77 mL/min >60 [facility] Comment on above: GFR Calc Estimated GFR (MDRD) Non-Af Amer 63 mL/min >60 [facility] Comment on above: Non- GFR Calc Platelet mean volume Adriano-Ec ker (Bld) [Entitic vol]Ordered By: Matt Ashraf on 08-26-2023 Platelet mean volume (Bld) [Entitic vol] 11.0 fL 6.2-12.0 [facility] RBC Auto (Bld) [#/Vol]Ordere d By: Matt Ashraf on 08-26-2023 RBC (Bld) [#/Vol] 3.97 10*6/uL 4.6-6.2 [facility] Serum or plasma calcium jerome urement (mass/volume)Ordered By: Matt Ashraf on 08-26-2023 Calcium [Mass/Vol] 8.8 mg/dL 8.5-10.1 [facility] Serum or plasma creatinine m easurement (mass/volume)Ordered By: Matt Ashraf on 08-26-2023 Creatinine [Mass/Vol] 1.21 mg/dL 0.70-1.30 [facility] Comment on above: The validity of the calculated GFR & GFRAA in patients over 70 years has not been determined. Clinical correlation is essential. Serum or plasma urea nitroge n measurement (mass/volume)Ordered By: Matt Ashraf on 08-26-2023 Urea nitrogen [Mass/Vol] 17 mg/dL 7-18 [facility] Thin prep Papanicolaou smear with manual screeningOrdered By: [facility] on 08-26-2023 Thin prep Papanicolaou smear with manual screening 5 5-15 [facility] Absolute lymphocyte countOrd ered By: mtkeavyamadou Ashraf on 08-19-2023 Lymphocytes Auto (Unsp spec) [#/Vol] 2.79 10*3/uL 0.83-4.51 [facility] Basophil percentageOrdered B y: Youngbaileyamadou Ashraf on 08-19-2023 Basophils/100 WBC (Bld) 0.7 % 0-1 [facility] Chloride [Moles/Vol] 112 mmol/L 98-107 [facility] Eosinophils/100 WBC (Bld) 5.0 % 0-5 [facility] Glucose [Mass/Vol] 84 mg/dL 74-106 [facility] Neutrophils (Bld) [#/Vol] 8.3 10*3/uL 2.0-7.7 [facility] Neutrophils/100 WBC (Bld) 63.9 % 47-70 [facility] Potassium [Moles/Vol] 3.8 mmol/L 3.5-5.1 [facility] Sodium [Moles/Vol] 143 mmol/L 136-145 [facility] WBC (Bld) [#/Vol] 13.0 10*3/uL 4.4-11.0 [facility] Blood erythrocytes count (nu mber/volume)Ordered By: Matt Ashraf on 08-19-2023 RBC (Bld) [#/Vol] 4.51 10*6/uL 4.6-6.2 [facility] Blood hemoglobin measurement (mass/volume)Ordered By: Matt Ashraf on 08-19-2023 Hemoglobin (Bld) [Mass/Vol] 13.2 g/dL 13.0-16.5 [facility] Blood lymphocytes/100 leukoc ytesOrdered By: Matt Ashraf on 08-19-2023 Lymphocytes/100 WBC (Bld) 21.4 % 19-41 [facility] Blood monocytes/100 leukocyt esOrdered By: Matt Ashraf on 08-19-2023 Monocytes/100 WBC (Bld) 8.5 % 0-10 [facility] Blood platelet mean volumeOr dered By: Matt Ashraf on 08-19-2023 Platelet mean volume (Bld) [Entitic vol] 10.8 fL 6.2-12.0 [facility] Determination of erythrocyte mean corpuscular volume (MCV)Ordered By: Matt Ashraf on 08-19-2023 MCV (RBC) [Entitic vol] 90.2 fL 80-94 [facility] Hematocrit Auto (Bld) [Volum e fraction]Ordered By: Matt Ashraf on 08-19-2023 Hematocrit (Bld) [Volume fraction] 40.7 % 40-54 [facility] Laboratory - Chemistry and C hemistry - challengeOrdered By: Matt Ashraf on 08-19-2023 CO2 [Moles/Vol] 24.0 mmol/L 21.0-32.0 [facility] Urea nitrogen/Creatinine [Mass ratio] 14.9 mg/mg 10-20 [facility] Laboratory - Hematology and Cell countsOrdered By: Matt Ashraf on 08-19-2023 Erythrocyte distribution width (RBC) [Entitic vol] 43.0 fL 35.1-43.9 [facility] Erythrocyte distribution width (RBC) [Ratio] 13.2 % 11.6-14.6 [facility] Immature granulocytes/100 WBC (Bld) 0.500 % 0.0-0.9 [facility] Comment on above: IG% - Immature Granu locytes (promyelocytes, myelocytes and metamyelocytes) > 1% indicates that a LEFT SHIFT is Present. MCH (RBC) [Entitic mass] 29.3 pg 27.0-32.0 [facility] Nucleated RBC/100 WBC (Bld) [Ratio] 0 % 0-5 [facility] MCHC Auto (RBC) [Mass/Vol]Or dered By: Matt Ashraf on 08-19-2023 MCHC (RBC) [Mass/Vol] 32.4 g/dL 32-36 [facility] No Panel InformationOrdered By: Matt Ashraf on 08-19-2023 Estimated GFR (MDRD) Amer 82 mL/min >60 [facility] Comment on above: GFR Calc Estimated GFR (MDRD) Non-Af Amer 68 mL/min >60 [facility] Comment on above: Non- GFR Calc Platelets bldOrdered By: Frantz Ashraf on 08-19-2023 Platelets (Bld) [#/Vol] 343 10*3/uL 150-450 [facility] Serum or plasma calcium jerome urement (mass/volume)Ordered By: Matt Ashraf on 08-19-2023 Calcium [Mass/Vol] 8.7 mg/dL 8.5-10.1 [facility] Serum or plasma creatinine m easurement (mass/volume)Ordered By: Matt Ashraf on 08-19-2023 Creatinine [Mass/Vol] 1.14 mg/dL 0.70-1.30 [facility] Comment on above: The validity of the calculated GFR & GFRAA in patients over 70 years has not been determined. Clinical correlation is essential. Serum or plasma urea nitroge n measurement (mass/volume)Ordered By: Matt Ashraf on 08-19-2023 Urea nitrogen [Mass/Vol] 17 mg/dL 7-18 [facility] Thin prep Papanicolaou smear with manual screeningOrdered By: Matt Ashraf on 08-19-2023 Thin prep Papanicolaou smear with manual screening 7 5-15 [facility] Absolute lymphocyte countOrd ered By: Matt Ashraf on 08-12-2023 Lymphocytes Auto (Unsp spec) [#/Vol] 2.84 10*3/uL 0.83-4.51 [facility] Basophil percentageOrdered B y: Matt Ashraf on 08-12-2023 Basophils/100 WBC (Bld) 0.6 % 0-1 [facility] Bilirubin [Mass/Vol] 1.00 mg/dL 0.20-1.00 [facility] Comment on above: For patients on eltr ombopag therapy, use of Dimension [place] TBIL is not recommended. Chloride [Moles/Vol] 111 mmol/L 98-107 [facility] Cholesterol [Mass/Vol] 153 mg/dL <200 [facility] Comment on above: <200 mg/dL Desirable 200-240 mg/dL Borderline >240 mg/dL High Risk Eosinophils/100 WBC (Bld) 3.9 % 0-5 [facility] Glucose [Mass/Vol] 99 mg/dL 74-106 [facility] Neutrophils (Bld) [#/Vol] 7.5 10*3/uL 2.0-7.7 [facility] Neutrophils/100 WBC (Bld) 59.4 % 47-70 [facility] Potassium [Moles/Vol] 4.1 mmol/L 3.5-5.1 [facility] Protein [Mass/Vol] 7.1 g/dL 6.4-8.2 [facility] Sodium [Moles/Vol] 141 mmol/L 136-145 [facility] Triglyceride [Mass/Vol] 124 mg/dL <199 [facility] Comment on above: The drugs N-Acetylcy steine and Metamizole may falsely depress this assay.Serum Triglycerides Reference Interval Normal <150 mg/dL Borderline high 150 - 199 mg/dL High 200 - 499 mg/dL Very High > or = 500 mg/dL WBC (Bld) [#/Vol] 12.7 10*3/uL 4.4-11.0 [facility] Blood erythrocytes count (nu mber/volume)Ordered By: Matt Ashraf on 08-12-2023 RBC (Bld) [#/Vol] 4.88 10*6/uL 4.6-6.2 [facility] Blood hemoglobin measurement (mass/volume)Ordered By: Vivimtbaileyamadou Ashraf on 08-12-2023 Hemoglobin (Bld) [Mass/Vol] 14.1 g/dL 13.0-16.5 [facility] Blood lymphocytes/100 leukoc ytesOrdered By: mathieu Ashraf on 08-12-2023 Lymphocytes/100 WBC (Bld) 22.3 % 19-41 [facility] Blood monocytes/100 leukocyt esOrdered By: mtkeavyamadou Ashraf on 08-12-2023 Monocytes/100 WBC (Bld) 12.5 % 0-10 [facility] Blood platelet mean volumeOr dered By: mathieu Ashraf on 08-12-2023 Platelet mean volume (Bld) [Entitic vol] 10.3 fL 6.2-12.0 [facility] Determination of erythrocyte mean corpuscular volume (MCV)Ordered By: Matt Ashraf on 08-12-2023 MCV (RBC) [Entitic vol] 90.0 fL 80-94 [facility] Hematocrit Auto (Bld) [Volum e fraction]Ordered By: mtkeavyamadou Ashraf on 08-12-2023 Hematocrit (Bld) [Volume fraction] 43.9 % 40-54 [facility] Laboratory - Chemistry and C hemistry - challengeOrdered By: mathieu Ashraf on 08-12-2023 ALP [Catalytic activity/Vol] 109 U/L 45-117 [facility] ALT [Catalytic activity/Vol] 23 U/L 16-61 [facility] CO2 [Moles/Vol] 25.0 mmol/L 21.0-32.0 [facility] Globulin (S) [Mass/Vol] 3.7 g/dL 2.2-4.2 [facility] Urea nitrogen/Creatinine [Mass ratio] 18.3 mg/mg 10-20 [facility] Laboratory - Hematology and Cell countsOrdered By: mtkeavyamadou Ashraf on 08-12-2023 Erythrocyte distribution width (RBC) [Entitic vol] 45.4 fL 35.1-43.9 [facility] Erythrocyte distribution width (RBC) [Ratio] 14.0 % 11.6-14.6 [facility] Immature granulocytes/100 WBC (Bld) 1.300 % 0.0-0.9 [facility] Comment on above: IG% - Immature Granu locytes (promyelocytes, myelocytes and metamyelocytes) > 1% indicates that a LEFT SHIFT is Present. MCH (RBC) [Entitic mass] 28.9 pg 27.0-32.0 [facility] Nucleated RBC/100 WBC (Bld) [Ratio] 0 % 0-5 [facility] MCHC Auto (RBC) [Mass/Vol]Or dered By: Matt Ashraf on 08-12-2023 MCHC (RBC) [Mass/Vol] 32.1 g/dL 32-36 [facility] No Panel InformationOrdered By: Matt Ashraf on 08-12-2023 Estimated GFR (MDRD) Amer 70 mL/min >60 [facility] Comment on above: GFR Calc Estimated GFR (MDRD) Non-Af Amer 58 mL/min >60 [facility] Comment on above: Non- GFR Calc Platelets bldOrdered By: Frantz Ashraf on 08-12-2023 Platelets (Bld) [#/Vol] 538 10*3/uL 150-450 [facility] Review by pathologistOrdered By: Matt Ashraf on 08-12-2023 Pathologist review Gerry (Unsp spec) [Interp] Reviewed [facility] Comment on above: Previous reported re sult: Bianca baez Edited by: RGOOD on 08/12/23:1216Leukocytosis and Thrombocytosis.Clinical correlation necessary.Mick James M.D. 08/12/23 AMENDED REPORT 08/12/23 1216 PATH REV previously reported as: Bianca baez Serum or plasma albumin jerome urement (mass/volume)Ordered By: Matt Ashraf on 08-12-2023 Albumin [Mass/Vol] 3.4 g/dL 3.2-5.0 [facility] Serum or plasma albumin/glob ulin mass ratioOrdered By: Matt Ashraf on 08-12-2023 Albumin/Globulin [Mass ratio] 0.9 {ratio} 0.9-2.4 [facility] Serum or plasma calcium jerome urement (mass/volume)Ordered By: Matt Ashraf on 08-12-2023 Calcium [Mass/Vol] 9.6 mg/dL 8.5-10.1 [facility] Serum or plasma cholesterol in HDL measurement (mass/volume)Ordered By: Matt Ashraf on 08-12-2023 Cholesterol in HDL [Mass/Vol] 41 mg/dL >40 [facility] Comment on above: The drugs N-Acetylcy steine and Metamizole may falsely depress this assay. Reference Range HDL <40 mg/dL Low HDL Cholesterol HDL >or= 60 mg/dL High HDL Cholesterol Serum or plasma cholesterol in VLDL measurement (mass/volume)Ordered By: Matt Ashraf on 08-12-2023 Cholesterol in VLDL [Mass/Vol] 25 mg/dL 5-40 [facility] Serum or plasma creatinine m easurement (mass/volume)Ordered By: Matt Ashraf on 08-12-2023 Creatinine [Mass/Vol] 1.31 mg/dL 0.70-1.30 [facility] Comment on above: The validity of the calculated GFR & GFRAA in patients over 70 years has not been determined. Clinical correlation is essential. Serum or plasma low density lipoprotein (LDL) cholesterol measurement (mass/volume)Ordered By: Matt Ashraf on 08-12-2023 Cholesterol in LDL [Mass/Vol] 87 mg/dL 0-130 [facility] Serum or plasma urea nitroge n measurement (mass/volume)Ordered By: Matt Ashraf on 08-12-2023 Urea nitrogen [Mass/Vol] 24 mg/dL 7-18 [facility] Thin prep Papanicolaou smear with manual screeningOrdered By: Matt Ashraf on 08-12-2023 Thin prep Papanicolaou smear with manual screening 17 U/L 15-37 [facility] Thin prep Papanicolaou smear with manual screening 5 5-15 [facility] COVID-19 virus antigen assay Ordered By: Davin Kim on 08-09-2023 SARS-CoV-2 (COVID-19) Ag IA.rapid Ql (Resp) [facility] Basophil percentageOrdered B y: Dov Marin on 08-08-2023 Basophil percentage 0 SEEN /hpf 0-5 [facility] Bilirubin Test strip Ql (U)O rdered By: Dov Marin on 08-08-2023 Bilirubin Ql (U) Negative Negative [facility] Culture, urineOrdered By: Yane Marin on 08-08-2023 Bacteria identified Cx Nom (U) Culture exhibits no growth. [facility] Ketones Test strip Ql (U)Ord ered By: Dov Marin on 08-08-2023 Ketones Ql (U) Negative Negative [facility] Mucus LM Ql (Urine sed)Order ed By: Dov Marin on 08-08-2023 Mucus Ql (Urine sed) 0 SEEN /hpf [facility] Nitrite Test strip Ql (U)Ord ered By: Dov Marin on 08-08-2023 Nitrite Ql (U) Negative Negative [facility] Protein Test strip Ql (U)Ord ered By: Dov Marin on 08-08-2023 Protein Ql (U) 15 mg/dl Negative [facility] Squamous epithelial cells de tection in urine sediment by light microscopyOrdered By: Dov Marin on 08-08-2023 Epithelial cells.squamous LM Ql (Urine sed) 0 SEEN /hpf 0-5 [facility] Urine blood detectionOrdered By: Dov Marin on 08-08-2023 RBC Ql (U) Negative Negative [facility] RBC Ql (U) 0 SEEN /hpf 0-5 [facility] Urine clarityOrdered By: Jessi Marin on 08-08-2023 Clarity (U) Clear Clear [facility] Urine color determinationOrd ered By: Dov Marin on 08-08-2023 Color (U) Yellow Yellow [facility] Urine glucose detectionOrder ed By: Dov Marin on 08-08-2023 Glucose Ql (U) Normal mg/dl Normal [facility] Urine leukocyte esterase det ection by dipstickOrdered By: Dov Marin on 08-08-2023 Leukocyte esterase Test strip Ql (U) Negative Negative [facility] Urine pHOrdered By: Dov verma on 08-08-2023 pH (U) 5.0 [pH] 5.0 - 8.0 [facility] Urine sediment bacteria coun t by microscopy (number/high power field)Ordered By: Dov Marin on 08-08-2023 Bacteria LM.HPF (Urine sed) [#/Area] 0 /[HPF] None Seen [facility] Urine specific gravity measu rementOrdered By: Dov Marin on 08-08-2023 Specific gravity (U) [Rel density] 1.025 1.002-1.030 [facility] Urobilinogen Auto test strip Ql (U)Ordered By: Dov Marin on 08-08-2023 Urobilinogen Ql (U) Normal mg/dl Normal [facility] Basophil percentageOrdered B y: Dov Mcghee on 08-07-2023 Chloride [Moles/Vol] 108 mmol/L 98-107 [facility] Glucose [Mass/Vol] 86 mg/dL 74-106 [facility] Potassium [Moles/Vol] 4.5 mmol/L 3.5-5.1 [facility] Sodium [Moles/Vol] 141 mmol/L 136-145 [facility] WBC (Bld) [#/Vol] 12.5 10*3/uL 4.4-11.0 [facility] Blood erythrocytes count (nu mber/volume)Ordered By: Dov Mcghee on 08-07-2023 RBC (Bld) [#/Vol] 4.17 10*6/uL 4.6-6.2 [facility] Blood hemoglobin measurement (mass/volume)Ordered By: Dov Mcghee on 08-07-2023 Hemoglobin (Bld) [Mass/Vol] 11.7 g/dL 13.0-16.5 [facility] Blood platelet mean volumeOr dered By: Dov Mcghee on 08-07-2023 Platelet mean volume (Bld) [Entitic vol] 10.0 fL 6.2-12.0 [facility] Determination of erythrocyte mean corpuscular volume (MCV)Ordered By: Dov Mcghee on 08-07-2023 MCV (RBC) [Entitic vol] 89.0 fL 80-94 [facility] Hematocrit Auto (Bld) [Volum e fraction]Ordered By: Dov Mcghee on 08-07-2023 Hematocrit (Bld) [Volume fraction] 37.1 % 40-54 [facility] Laboratory - Chemistry and C hemistry - challengeOrdered By: Dov Mcghee on 08-07-2023 CO2 [Moles/Vol] 25.0 mmol/L 21.0-32.0 [facility] Urea nitrogen/Creatinine [Mass ratio] 11.9 mg/mg 10-20 [facility] Laboratory - Hematology and Cell countsOrdered By: Dov Mcghee on 08-07-2023 Erythrocyte distribution width (RBC) [Entitic vol] 46.1 fL 35.1-43.9 [facility] Erythrocyte distribution width (RBC) [Ratio] 14.3 % 11.6-14.6 [facility] MCH (RBC) [Entitic mass] 28.1 pg 27.0-32.0 [facility] MCHC Auto (RBC) [Mass/Vol]Or dered By: Dov Mcghee on 08-07-2023 MCHC (RBC) [Mass/Vol] 31.5 g/dL 32-36 [facility] No Panel InformationOrdered By: Dov Mcghee on 08-07-2023 Estimated Creatinine Clearance Calc 54.48 ml/min [facility] Estimated GFR (MDRD) Amer 68 mL/min >60 [facility] Comment on above: GFR Calc Estimated GFR (MDRD) Non-Af Amer 56 mL/min >60 [facility] Comment on above: Non- GFR Calc Platelets bldOrdered By: Jessi Mcghee on 08-07-2023 Platelets (Bld) [#/Vol] 405 10*3/uL 150-450 [facility] Serum or plasma calcium jerome urement (mass/volume)Ordered By: Dov Mcghee on 08-07-2023 Calcium [Mass/Vol] 8.4 mg/dL 8.5-10.1 [facility] Serum or plasma creatinine m easurement (mass/volume)Ordered By: Dov Mcghee on 08-07-2023 Creatinine [Mass/Vol] 1.34 mg/dL 0.70-1.30 [facility] Comment on above: The validity of the calculated GFR & GFRAA in patients over 70 years has not been determined. Clinical correlation is essential. Serum or plasma urea nitroge n measurement (mass/volume)Ordered By: Dov Mcghee on 08-07-2023 Urea nitrogen [Mass/Vol] 16 mg/dL 7-18 [facility] Thin prep Papanicolaou smear with manual screeningOrdered By: Dov Mcghee on 08-07-2023 Thin prep Papanicolaou smear with manual screening 8 5-[address] [facility] [address] HEAD OR BRAIN W/O CONTRAS [...] 07/26/2023 12:32:07 PM Ordering Provider: MATTHEW AVALOS [facility] [place] SPINE CERVICAL W/O CONTRA STon 07-26-2023 [...] changes. IMPRESSION: No acute fracture. Interpreted by: Zenadia Shi MD Preliminary Report By: Zenaida Shi MD Electronically signed By Zenaida Shi MD Dictated Date: 07/26/2023 12:32:15 PM Prelim Date: 07/26/2023 12:33:14 PM Sign Date: 07/26/2023 12:33:14 PM Ordering Provider: MATTHEW AVAOLS [facility] [place] XR ANKLE AND FOOT 6 VIEWS [place] [facility] 07-26-2023 XR ANKLE AND FOOT 6 [...] 07/26/2023 12:43:33 PM Ordering Provider: MATTHEW AVALOS [facility] [place] CHEST 1 VIEWon 07-26-2023 XR CHEST [...] 07/26/2023 12:37:50 PM Ordering Provider: MATTHEW Robles [facility]) XR PELVIS 1 OR 2 VIEWSon XR PELVIS 1 OR 2 VIEWS ORIGINAL EXAMINATION: ONE XRAY VIEW OF THE [id number]/26/2023 12:28 pm COMPARISON: 03/22/2023 HISTORY: ORDERING SYSTEM [...] 07/26/2023 12:39:59 PM Ordering Provider: MATTHEW Robles [facility]) SIGMOIDOSCOPYon 06-19-2023 [facility] CT ABD/PEL W IVCONon 023 [facility] MRI RECTUM WO/W IVCONon 11-0 [facility] Basic metabolic 2000 panelon 05-22-2023 Anion gap [Moles/Vol] 13 mmol/L 9 - 18 mmol/L [facility] Calcium [Mass/Vol] 9.3 mg/dL 8.5 - 10. 2 mg/dL [facility] Chloride [Moles/Vol] 105 mmol/L 97 - 10 5 mmol/L [facility] CO2 [Moles/Vol] 24 mmol/L 22 - 30 mmol/L [facility] Creatinine [Mass/Vol] 1.30 mg/dL High 0.73 - 1.22 mg/dL [facility] Estimated Glomerular Filtration Rate 60 mL/min/1.73m >=60 mL/min/1.73 m [facility] Glucose [Mass/Vol] 93 mg/dL 74 - 99 mg/dL [facility] Potassium [Moles/Vol] 4.4 mmol/L 3.7 - 5.1 mmol/L [facility] Sodium [Moles/Vol] 142 mmol/L 136 - 144 mmol/L [facility] Urea nitrogen [Mass/Vol] 17 mg/dL 9 - 24 mg/dL [facility] CBC W Auto Differential pane l (Bld)on 05-09-2023 Basophils (Bld) [#/Vol] 0.07 10*3/uL <0.11 k/uL [facility] Basophils/100 WBC (Bld) 0.7 % [facility] Differential cell count method Nom (Bld) Auto [facility] Eosinophils (Bld) [#/Vol] 0.98 10*3/uL High <0.46 k/uL [facility] Eosinophils/100 WBC (Bld) 10.2 % [facility] Erythrocyte distribution width (RBC) [Ratio] 19.5 % High 11.5 - 15.0 % [facility] Hematocrit (Bld) [Volume fraction] 33.5 % Low 39.0 - 51.0 % [facility] Hemoglobin (Bld) [Mass/Vol] 10.1 g/dL Low 13.0 - 17.0 g/dL [facility] Immature granulocytes (Bld) [#/Vol] 0.05 10*3/uL <0.10 k/uL [facility] Immature granulocytes/100 WBC (Bld) 0.5 % [facility] Lymphocytes (Bld) [#/Vol] 1.59 10*3/uL 1.00 - 4.00 k/uL [facility] Lymphocytes/100 WBC (Bld) 16.6 % [facility] MCH (RBC) [Entitic mass] 25.9 pg Low 26. 0 - 34.0 pg [facility] MCHC (RBC) [Mass/Vol] 30.1 g/dL Low 30.5 - 36.0 g/dL [facility] MCV (RBC) [Entitic vol] 85.9 fL 80.0 - 100.0 fL [facility] Monocytes (Bld) [#/Vol] 0.76 10*3/uL <0.87 k/uL [facility] Monocytes/100 WBC (Bld) 7.9 % [facility] Neutrophils (Bld) [#/Vol] 6.12 10*3/uL 1.45 - 7.50 k/uL [facility] Neutrophils/100 WBC (Bld) 64.1 % [facility] Nucleated RBC (Bld) [#/Vol] <0.01 k/uL [facility] Nucleated RBC/100 WBC (Bld) [Ratio] 0.0 /100 WBC [facility] Platelet mean volume (Bld) [Entitic vol] 12.0 fL 9.0 - 12.7 fL [facility] Platelets (Bld) [#/Vol] 258 10*3/uL 150 - 400 k/uL [facility] RBC (Bld) [#/Vol] 3.90 10*6/uL Low 4.20 - 6.0 0 m/uL [facility] WBC (Bld) [#/Vol] 9.57 10*3/uL 3.70 - 11.00 k/uL [facility] CBC W Auto Differential pane l (Bld)on 04-19-2023 Basophils (Bld) [#/Vol] 0.12 10*3/uL High <0.11 k/uL [facility] Basophils/100 WBC (Bld) 1.2 % [facility] Differential cell count method Nom (Bld) Auto [facility] Eosinophils (Bld) [#/Vol] 0.52 10*3/uL High <0.46 k/uL [facility] Eosinophils/100 WBC (Bld) 5.0 % [facility] Erythrocyte distribution width (RBC) [Ratio] 15.8 % High 11.5 - 15.0 % [facility] Hematocrit (Bld) [Volume fraction] 33.3 % Low 39.0 - 51.0 % [facility] Hemoglobin (Bld) [Mass/Vol] 9.6 g/dL Low 13.0 - 17.0 g/dL [facility] Immature granulocytes (Bld) [#/Vol] 0.06 10*3/uL <0.10 k/uL [facility] Immature granulocytes/100 WBC (Bld) 0.6 % [facility] Lymphocytes (Bld) [#/Vol] 1.55 10*3/uL 1.00 - 4.00 k/uL [facility] Lymphocytes/100 WBC (Bld) 14.9 % [facility] MCH (RBC) [Entitic mass] 25.0 pg Low 26. 0 - 34.0 pg [facility] MCHC (RBC) [Mass/Vol] 28.8 g/dL Low 30.5 - 36.0 g/dL [facility] MCV (RBC) [Entitic vol] 86.7 fL 80.0 - 100.0 fL [facility] Monocytes (Bld) [#/Vol] 1.02 10*3/uL High <0.87 k/uL [facility] Monocytes/100 WBC (Bld) 9.8 % [facility] Neutrophils (Bld) [#/Vol] 7.12 10*3/uL 1.45 - 7.50 k/uL [facility] Neutrophils/100 WBC (Bld) 68.5 % [facility] Nucleated RBC (Bld) [#/Vol] <0.01 k/uL [facility] Nucleated RBC/100 WBC (Bld) [Ratio] 0.0 /100 WBC [facility] Platelet mean volume (Bld) [Entitic vol] 11.3 fL 9.0 - 12.7 fL [facility] Platelets (Bld) [#/Vol] 462 10*3/uL High 150 - 400 k/uL [facility] RBC (Bld) [#/Vol] 3.84 10*6/uL Low 4.20 - 6.0 0 m/uL [facility] WBC (Bld) [#/Vol] 10.39 10*3/uL 3.70 - 11.00 k/uL [facility] Absolute lymphocyte countOrd ered By: Matt Ashraf on 04-11-2023 Lymphocytes Auto (Unsp spec) [#/Vol] 2.67 10*3/uL 0.83-4.51 [facility] Basophil percentageOrdered B y: Matt Ashraf on 04-11-2023 Basophils/100 WBC (Bld) 0.9 % 0-1 [facility] Chloride [Moles/Vol] 110 mmol/L 98-107 [facility] Eosinophils/100 WBC (Bld) 5.6 % 0-5 [facility] Glucose [Mass/Vol] 79 mg/dL 74-106 [facility] Neutrophils (Bld) [#/Vol] 5.4 10*3/uL 2.0-7.7 [facility] Neutrophils/100 WBC (Bld) 54.1 % 47-70 [facility] Potassium [Moles/Vol] 3.7 mmol/L 3.5-5.1 [facility] Sodium [Moles/Vol] 143 mmol/L 136-145 [facility] WBC (Bld) [#/Vol] 10.0 10*3/uL 4.4-11.0 [facility] Blood erythrocytes count (nu mber/volume)Ordered By: Matt Ashraf on 04-11-2023 RBC (Bld) [#/Vol] 3.44 10*6/uL 4.6-6.2 [facility] Blood hemoglobin measurement (mass/volume)Ordered By: Matt Ashraf on 04-11-2023 Hemoglobin (Bld) [Mass/Vol] 8.7 g/dL 13.0-16.5 [facility] Blood lymphocytes/100 leukoc ytesOrdered By: Matt Ashraf on 04-11-2023 Lymphocytes/100 WBC (Bld) 26.7 % 19-41 [facility] Blood monocytes/100 leukocyt esOrdered By: Matt Ashraf on 04-11-2023 Monocytes/100 WBC (Bld) 12.3 % 0-10 [facility] Blood platelet mean volumeOr dered By: Matt Ashraf on 04-11-2023 Platelet mean volume (Bld) [Entitic vol] 10.8 fL 6.2-12.0 [facility] CNPNon 04-11-2023 ESTELLAN Telephone ([employer]) AFSHIN ZEE ([id number]) 1955 Date Time Provider Department 04/11/23 JORGE CARDOSO During your visit today, we recorded the following information about you: Jorge Cardoso MD 04/11/2023 7:31 PM Signed FOLLOW UP ENDOSCOPY - RESULTS AND RECOMMENDATIONS NAME: Afshin Zee CLINIC NO.: [id number] : 1955 DATE: April 11, 2023 PRIMARY [...] eventually turn into colorectal cancer. Advised that the medical center to repeat colonoscopy in 1 year for [...] breath. Use (more content not included)... Normal [facility] Determination of erythrocyte mean corpuscular volume (MCV)Ordered By: Matt Ashraf on 04-11-2023 MCV (RBC) [Entitic vol] 88.4 fL 80-94 [facility] Hematocrit Auto (Bld) [Volum e fraction]Ordered By: mtkeavyamadou Senvijay on 04-11-2023 Hematocrit (Bld) [Volume fraction] 30.4 % 40-54 [facility] Laboratory - Chemistry and C hemistry - challengeOrdered By: [facility] on 04-11-2023 CO2 [Moles/Vol] 26.0 mmol/L 21.0-32.0 [facility] Urea nitrogen/Creatinine [Mass ratio] 13.2 mg/mg 10-20 [facility] Laboratory - Hematology and Cell countsOrdered By: mtkeavyamadou Senvijay on 04-11-2023 Erythrocyte distribution width (RBC) [Entitic vol] 52.6 fL 35.1-43.9 [facility] Erythrocyte distribution width (RBC) [Ratio] 16.1 % 11.6-14.6 [facility] Immature granulocytes/100 WBC (Bld) 0.400 % 0.0-0.9 [facility] Comment on above: IG% - Immature Granu locytes (promyelocytes, myelocytes and metamyelocytes) > 1% indicates that a LEFT SHIFT is Present. MCH (RBC) [Entitic mass] 25.3 pg 27.0-32.0 [facility] Nucleated RBC/100 WBC (Bld) [Ratio] 0 % 0-5 [facility] MCHC Auto (RBC) [Mass/Vol]Or dered By: mtkeavyamadou Ashraf on 09-07-2023 MCHC (RBC) [Mass/Vol] 28.6 g/dL 32-36 [facility] No Panel InformationOrdered By: Matt Ashraf on 04-11-2023 Estimated GFR (MDRD) Amer 67 mL/min >60 [facility] Comment on above: GFR Calc Estimated GFR (MDRD) Non-Af Amer 55 mL/min >60 [facility] Comment on above: Non- GFR Calc Platelets bldOrdered By: Frantz Ashraf on 04-11-2023 Platelets (Bld) [#/Vol] 533 10*3/uL 150-450 [facility] Serum or plasma calcium jerome urement (mass/volume)Ordered By: Matt Ashraf on 04-11-2023 Calcium [Mass/Vol] 8.4 mg/dL 8.5-10.1 [facility] Serum or plasma creatinine m easurement (mass/volume)Ordered By: Matt Ashraf on 04-11-2023 Creatinine [Mass/Vol] 1.36 mg/dL 0.70-1.30 [facility] Comment on above: The validity of the calculated GFR & GFRAA in patients over 70 years has not been determined. Clinical correlation is essential. Serum or plasma urea nitroge n measurement (mass/volume)Ordered By: Matt Ashraf on 04-11-2023 Urea nitrogen [Mass/Vol] 18 mg/dL 7-18 [facility] Thin prep Papanicolaou smear with manual screeningOrdered By: Matt Ashraf on 04-11-2023 Thin prep Papanicolaou smear with manual screening 7 5-15 [facility] ANES POSTPROC EVALon 023 ANES POSTPROC EVAL HNO ID: [id number] Author: Dania Villa DO Service: Anesthesiology Author Type: Physician Type: Anesthesia Postprocedure Evaluation Filed: 04/10/2023 2:02 PM Note Text: POST ANESTHESIA EVALUATION NOTE : 1955 Procedure Summary Date: 04/10/23 Room / Location: [facility] Endoscopy Anesthesia Start: 1217 Anesthesia Stop: 1305 Procedures: EGD DIAGNOSTIC COLONOSCOPY DIAGNOSTIC Diagnosis: Iron deficiency anemia due to chronic blood loss (Recent GI bleeding) (Rectal bleeding) Scheduled Providers: Jorge Cardoso MD; Dania Villa DO; Sasha Neal APRN.CORNETIST Responsible Provider: Dania Villa DO Anesthesia Type: [...] April 10, 2023 TIME: 2:02 PM CSN: [id number] [facility] ANES PRE-OPon 04-10-2023 ANES PRE-OP HNO ID: [id number] Author: Dania Vlila DO Service: Anesthesiology Author Type: Physician Type: Anesthesia Preprocedure Evaluation Filed: 04/10/2023 11:43 AM Note Text: Summary: 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 DARON, ephysema. FULL code periop ANESTHESIOLOGY DAY OF SURGERY NOTE : 1955 Procedure Information Date/Time: 04/10/23 1200 Scheduled providers: Jorge Cardoso MD; Dania Villa DO; Sasha Neal APRN.CORNETIST Procedures: EGD DIAGNOSTIC COLONOSCOPY DIAGNOSTIC Location: [facility] Endoscopy Estimated body mass index is 24.82 kg/m? as calculated from the following: Height as of 04/05/23: 182.9 cm (6'). Weight as of 04/05/23: 83 kg (183 lb). Most recent hematocrit and potassium results: Hematocrit (I-STAT) 39.1 10/06/2022 Potassium (I-STAT) 4.7 02/26/2023 Relevant Problems CARDIO (+) Coronary artery disease involving [place] coronary artery of [place] heart without angina pectoris (+) Essential hypertension (+) Occlusion of left carotid artery (+) Paroxysmal atrial fibrillation (HCC) -RENAL (+) Stage 3a chronic kidney disease (HCC) NEURO-PSYCH (+) Stroke (cerebrum) (HCC) PULMONARY (+) Centrilobular emphysema ([facility]) I - PHYSICAL EVALUATION AIRWAY Patient intubated: [...] and consent discussed: yes. Patient / Responsible Republican agrees to proceed: yes Patient / Surrogate [...] (FLONASE) 50 mcg/actuation nasal spray Use 1 Premium in each nostril twice daily. Rinse mouth [...] 1 t (more content not included)... Normal [facility] COLONOSCOPY DIAGNOSTICon [facility] Colonoscopyon 04-10-2023 Colonoscopy [facility] Gastrointestinal Endoscopy Patient Name: Afshin Zee Procedure Date: 04/10/2023 12:29 PM Date of : 1955 Admit Type: Outpatient Age: 67 Room: [facility] Gender: Male Note Status: Bilingual [employer] Attending MD: Jorge Cardoso MD Procedure: [...] by the physician, the nurse and the char filter operator in the pre-procedure area in the procedure [...] be scheduled. Procedure Code(s): --- Professional --- 80790, Colonoscopy, flexible; with removal of tumor (more content not included)... Normal [facility] EGD DIAGNOSTICon 04-10-2023 [facility] HISTORY PHYSICALon 3 HISTORY PHYSICAL HNO ID: [id number] Author: Jorge Cardoso MD Service: General Surgery [...] The patient is currently undergoing rehab at [facility]. He was found to have a significant of blood in his stool. The patient presented to [facility] emergency department on March 21, 2023. [...] The patient is was with him at [facility] and went to give him a shower and noted bright red blood in the bathroom. Hemoglobin apparently at [facility] was checked 2 days previously and was [...] (FLONASE) 50 mcg/actuation nasal spray Use 1 Premium in each nostril twice daily. Rinse mouth [...] foot brace for right leg. Send to [email or web address]. 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 [facility] NURSING PROGon 04-10-2023 NURSING PROG HNO ID: [id number] Author: Kylie Galvez RN Service: ? Author Type: Registered Nurse Type: Nursing Progress Note Filed: 04/10/2023 3:05 PM Note Text: Call made to [facility] to give report. Gave report to RN. Also sent copy of instructions home with to give to [facility]. Pt being prepared for home. [facility] SURGICAL PATHOLOGYon 023 CASE REPORT [facility] Comment on above: Order Comment: Speci men Type: TISSUE SPECIMEN Ordering Facility: [facility] Address: [address] [place] [phone] Result Comment: Surg [facility] Pathology Report Case: [id number] Authorizing Provider: Jorge Cardoso MD Collected: 04/10/2023 12:26 PM Ordering Location: [facility] Endoscopy Received: 04/10/2023 01:39 PM Pathologist: Elida Denny MD Specimens: A) - ANTRUM (STOMACH) BIOPSY B) - HEPATIC FLEXURE POLYP C) - RECTAL BIOPSY, Rectal mass bx Performed By: #### S #### [facility] CLIA [id number] [facility] [address] DIAGNOSIS COMMENT C. Correlation with the endoscopic findings is recommended. [facility] Comment on above: Order Comment: Speci men Type: TISSUE SPECIMEN Ordering Facility: [facility] Address: [address] [place] [address] Performed By: #### S #### [facility] CLIA [id number] [facility] [address] FINAL DIAGNOSIS [facility] Comment on above: Order Comment: Speci men Type: TISSUE SPECIMEN Ordering Facility: [facility] Address: [address] [place] [address] Result Comment: A. S tomach, antrum, biopsy: - Gastric antral mucosa with reactive epithelial changes. - No morphologic evidence of Helicobacter pylori organisms. B. Colon, hepatic flexure, polyp, polypectomy: - Tubular adenoma. C. Rectum, mass, biopsy: - Superficial fragments of tubular adenoma (see comment). Performed By: #### S #### [facility] CLIA [id number] [address] [place] [address] FINAL PERFORMING LAB [facility] Comment on above: Order Comment: Speci men Type: TISSUE SPECIMEN Ordering Facility: [facility] Address: [address] [address] Result Comment: Diag nostic interpretation performed at [facility], [address] [place] [address] CLIA# [id number] Scrummaster: Silver Orellana M.D. Performed By: #### S #### [facility] CLIA [id number] [address] [place] [address] OF MINDY GROSS DESCRIPTION [facility] Comment on above: Order Comment: Speci men Type: TISSUE SPECIMEN Ordering Facility: [facility] Address: [address] [place] [phone] Result Comment: A. A NTRUM (STOMACH) BIOPSY [...] in one cassette. Gross examination performed at [facility], [address] [place], [place] [id number] April 10, 2023 8:06 PM Performed By: #### S #### [facility] CLIA [id number] [address] [place] [id number] [place], [place] [id number] [facility] Upper GI endoscopyon 023 Upper GI endoscopy [facility] Gastrointestinal Endoscopy Patient Name: Afshin Zee Procedure Date: 04/10/2023 11:38 AM Date of : 1955 Admit Type: Outpatient Age: 67 Room: [facility] Gender: Male Note Status: Bilingual [employer] Attending MD: Jorge Cardoso MD Procedure: [...] by the physician, the nurse and the char filter operator in the pre-procedure area in the procedure [...] 1 week. Procedure Code(s): --- Professional --- 26049, Esophagogastroduodenos copy, flexible, transoral; with biopsy, single or multiple CPT copyright 2020 [employer]. All rights reserved. The codes documented in this report are preliminary and upon cutting pressman review may be revised to meet current [...] Blood Loss: Estimated blood loss: none. Normal [facility] Absolute lymphocyte countOrd ered By: Matt Ashraf on 04-04-2023 Lymphocytes Auto (Unsp spec) [#/Vol] 2.95 10*3/uL 0.83-4.51 [facility] Basophil percentageOrdered B y: Matt Ashraf on 04-04-2023 Basophils/100 WBC (Bld) 1.1 % 0-1 [facility] Chloride [Moles/Vol] 110 mmol/L 98-107 [facility] Eosinophils/100 WBC (Bld) 7.4 % 0-5 [facility] Glucose [Mass/Vol] 85 mg/dL 74-106 [facility] Neutrophils (Bld) [#/Vol] 5.2 10*3/uL 2.0-7.7 [facility] Neutrophils/100 WBC (Bld) 50.3 % 47-70 [facility] Potassium [Moles/Vol] 3.8 mmol/L 3.5-5.1 [facility] Sodium [Moles/Vol] 141 mmol/L 136-145 [facility] WBC (Bld) [#/Vol] 10.3 10*3/uL 4.4-11.0 [facility] Blood erythrocytes count (nu mber/volume)Ordered By: Matt Ashraf on 04-04-2023 RBC (Bld) [#/Vol] 3.67 10*6/uL 4.6-6.2 [facility] Blood hemoglobin measurement (mass/volume)Ordered By: Matt Ashraf on 04-04-2023 Hemoglobin (Bld) [Mass/Vol] 9.5 g/dL 13.0-16.5 [facility] Blood lymphocytes/100 leukoc ytesOrdered By: mathieu Ashraf on 04-04-2023 Lymphocytes/100 WBC (Bld) 28.5 % 19-41 [facility] Blood monocytes/100 leukocyt esOrdered By: Matt Ashraf on 04-04-2023 Monocytes/100 WBC (Bld) 12.2 % 0-10 [facility] Blood platelet mean volumeOr dered By: Matt Ashraf on 04-04-2023 Platelet mean volume (Bld) [Entitic vol] 10.5 fL 6.2-12.0 [facility] Determination of erythrocyte mean corpuscular volume (MCV)Ordered By: Matt Ashraf on 04-04-2023 MCV (RBC) [Entitic vol] 86.1 fL 80-94 [facility] Hematocrit Auto (Bld) [Volum e fraction]Ordered By: Matt Ashraf on 04-04-2023 Hematocrit (Bld) [Volume fraction] 31.6 % 40-54 [facility] Laboratory - Chemistry and C hemistry - challengeOrdered By: Matt Ashraf on 04-04-2023 CO2 [Moles/Vol] 25.0 mmol/L 21.0-32.0 [facility] Urea nitrogen/Creatinine [Mass ratio] 16.5 mg/mg 10-20 [facility] Laboratory - Hematology and Cell countsOrdered By: mtkeavyamadou Ashraf on 04-04-2023 Erythrocyte distribution width (RBC) [Entitic vol] 52.0 fL 35.1-43.9 [facility] Erythrocyte distribution width (RBC) [Ratio] 16.5 % 11.6-14.6 [facility] Immature granulocytes/100 WBC (Bld) 0.500 % 0.0-0.9 [facility] Comment on above: IG% - Immature Granu locytes (promyelocytes, myelocytes and metamyelocytes) > 1% indicates that a LEFT SHIFT is Present. MCH (RBC) [Entitic mass] 25.9 pg 27.0-32.0 [facility] Nucleated RBC/100 WBC (Bld) [Ratio] 0 % 0-5 [facility] MCHC Auto (RBC) [Mass/Vol]Or dered By: Matt Ashraf on 04-04-2023 MCHC (RBC) [Mass/Vol] 30.1 g/dL 32-36 [facility] No Panel InformationOrdered By: Matt Ashraf on 04-04-2023 Estimated GFR (MDRD) Amer 77 mL/min >60 [facility] Comment on above: GFR Calc Estimated GFR (MDRD) Non-Af Amer 63 mL/min >60 [facility] Comment on above: Non- GFR Calc Platelets bldOrdered By: Frantzvijay schneider Andriy on 04-04-2023 Platelets (Bld) [#/Vol] 396 10*3/uL 150-450 [facility] Serum or plasma calcium jerome urement (mass/volume)Ordered By: Matt Ashraf on 04-04-2023 Calcium [Mass/Vol] 8.5 mg/dL 8.5-10.1 [facility] Serum or plasma creatinine m easurement (mass/volume)Ordered By: Matt Ashraf on 04-04-2023 Creatinine [Mass/Vol] 1.21 mg/dL 0.70-1.30 [facility] Comment on above: The validity of the calculated GFR & GFRAA in patients over 70 years has not been determined. Clinical correlation is essential. Serum or plasma urea nitroge n measurement (mass/volume)Ordered By: Matt Ashraf on 04-04-2023 Urea nitrogen [Mass/Vol] 20 mg/dL 7-18 [facility] Thin prep Papanicolaou smear with manual screeningOrdered By: Matt Ashraf on 04-04-2023 Thin prep Papanicolaou smear with manual screening 6 5-15 [facility] Absolute lymphocyte countOrd ered By: Matt Ashraf on 04-02-2023 Lymphocytes Auto (Unsp spec) [#/Vol] 2.53 10*3/uL 0.83-4.51 [facility] Basophil percentageOrdered B y: Matt Ashraf on 04-02-2023 Basophils/100 WBC (Bld) 0.9 % 0-1 [facility] Eosinophils/100 WBC (Bld) 8.3 % 0-5 [facility] Neutrophils (Bld) [#/Vol] 5.3 10*3/uL 2.0-7.7 [facility] Neutrophils/100 WBC (Bld) 52.8 % 47-70 [facility] WBC (Bld) [#/Vol] 10.1 10*3/uL 4.4-11.0 [facility] Blood erythrocytes count (nu mber/volume)Ordered By: Matt Ashraf on 04-02-2023 RBC (Bld) [#/Vol] 3.57 10*6/uL 4.6-6.2 [facility] Blood hemoglobin measurement (mass/volume)Ordered By: Matt Ashraf on 04-02-2023 Hemoglobin (Bld) [Mass/Vol] 9.1 g/dL 13.0-16.5 [facility] Blood lymphocytes/100 leukoc ytesOrdered By: mtkeavyamadou Ashraf on 04-02-2023 Lymphocytes/100 WBC (Bld) 25.2 % 19-41 [facility] Blood monocytes/100 leukocyt esOrdered By: [facility] on 04-02-2023 Monocytes/100 WBC (Bld) 12.2 % 0-10 [facility] Blood platelet mean volumeOr dered By: Youngkeavyamadou Ashraf on 04-02-2023 Platelet mean volume (Bld) [Entitic vol] 10.6 fL 6.2-12.0 [facility] Determination of erythrocyte mean corpuscular volume (MCV)Ordered By: Matt Ashraf on 04-02-2023 MCV (RBC) [Entitic vol] 87.1 fL 80-94 [facility] Hematocrit Auto (Bld) [Volum e fraction]Ordered By: Matt Ashraf on 04-02-2023 Hematocrit (Bld) [Volume fraction] 31.1 % 40-54 [facility] Laboratory - Hematology and Cell countsOrdered By: mtkeavyamadou Ashraf on 04-02-2023 Erythrocyte distribution width (RBC) [Entitic vol] 52.5 fL 35.1-43.9 [facility] Erythrocyte distribution width (RBC) [Ratio] 16.5 % 11.6-14.6 [facility] Immature granulocytes/100 WBC (Bld) 0.600 % 0.0-0.9 [facility] Comment on above: IG% - Immature Granu locytes (promyelocytes, myelocytes and metamyelocytes) > 1% indicates that a LEFT SHIFT is Present. MCH (RBC) [Entitic mass] 25.5 pg 27.0-32.0 [facility] Nucleated RBC/100 WBC (Bld) [Ratio] 0 % 0-5 [facility] MCHC Auto (RBC) [Mass/Vol]Or dered By: Matt Ashraf on 04-02-2023 MCHC (RBC) [Mass/Vol] 29.3 g/dL 32-36 [facility] Platelets bldOrdered By: Frantz Ashraf on 04-02-2023 Platelets (Bld) [#/Vol] 338 10*3/uL 150-450 [facility] Absolute lymphocyte countOrd ered By: Matt Ashraf on 03-28-2023 Lymphocytes Auto (Unsp spec) [#/Vol] 1.96 10*3/uL 0.83-4.51 [facility] Basophil percentageOrdered B y: Matt Ashraf on 03-28-2023 Basophils/100 WBC (Bld) 0.8 % 0-1 [facility] Bilirubin [Mass/Vol] 0.80 mg/dL 0.20-1.00 [facility] Comment on above: For patients on eltr ombopag therapy, use of Dimension [place] TBIL is not recommended. Chloride [Moles/Vol] 109 mmol/L 98-107 [facility] Cholesterol [Mass/Vol] 99 mg/dL <200 [facility] Comment on above: <200 mg/dL Desirable 200-240 mg/dL Borderline >240 mg/dL High Risk Eosinophils/100 WBC (Bld) 8.7 % 0-5 [facility] Glucose [Mass/Vol] 97 mg/dL 74-106 [facility] Neutrophils (Bld) [#/Vol] 4.8 10*3/uL 2.0-7.7 [facility] Neutrophils/100 WBC (Bld) 53.8 % 47-70 [facility] Potassium [Moles/Vol] 3.7 mmol/L 3.5-5.1 [facility] Protein [Mass/Vol] 6.1 g/dL 6.4-8.2 [facility] Sodium [Moles/Vol] 143 mmol/L 136-145 [facility] Triglyceride [Mass/Vol] 121 mg/dL <199 [facility] Comment on above: The drugs N-Acetylcy steine and Metamizole may falsely depress this assay.Serum Triglycerides Reference Interval Normal <150 mg/dL Borderline high 150 - 199 mg/dL High 200 - 499 mg/dL Very High > or = 500 mg/dL WBC (Bld) [#/Vol] 8.9 10*3/uL 4.4-11.0 [facility] Blood erythrocytes count (nu mber/volume)Ordered By: Matt Ashraf on 03-28-2023 RBC (Bld) [#/Vol] 3.65 10*6/uL 4.6-6.2 [facility] Blood hemoglobin measurement (mass/volume)Ordered By: Matt Ashraf on 03-28-2023 Hemoglobin (Bld) [Mass/Vol] 9.3 g/dL 13.0-16.5 [facility] Blood lymphocytes/100 leukoc ytesOrdered By: Matt Ashraf on 03-28-2023 Lymphocytes/100 WBC (Bld) 22.1 % 19-41 [facility] Blood monocytes/100 leukocyt esOrdered By: Matt Ashraf on 03-28-2023 Monocytes/100 WBC (Bld) 14.0 % 0-10 [facility] Blood platelet mean volumeOr dered By: Matt Ashraf on 03-28-2023 Platelet mean volume (Bld) [Entitic vol] 10.3 fL 6.2-12.0 [facility] Determination of erythrocyte mean corpuscular volume (MCV)Ordered By: Matt Ashraf on 03-28-2023 MCV (RBC) [Entitic vol] 89.0 fL 80-94 [facility] Hematocrit Auto (Bld) [Volum e fraction]Ordered By: Matt Ashraf on 03-28-2023 Hematocrit (Bld) [Volume fraction] 32.5 % 40-54 [facility] Laboratory - Chemistry and C hemistry - challengeOrdered By: Matt Ashraf on 03-28-2023 ALP [Catalytic activity/Vol] 112 U/L 45-117 [facility] ALT [Catalytic activity/Vol] 24 U/L 16-61 [facility] CO2 [Moles/Vol] 29.0 mmol/L 21.0-32.0 [facility] Globulin (S) [Mass/Vol] 3.1 g/dL 2.2-4.2 [facility] Urea nitrogen/Creatinine [Mass ratio] 10.3 mg/mg 10-20 [facility] Laboratory - Hematology and Cell countsOrdered By: Matt Ashraf on 03-28-2023 Erythrocyte distribution width (RBC) [Entitic vol] 49.7 fL 35.1-43.9 [facility] Erythrocyte distribution width (RBC) [Ratio] 15.9 % 11.6-14.6 [facility] Immature granulocytes/100 WBC (Bld) 0.600 % 0.0-0.9 [facility] Comment on above: IG% - Immature Granu locytes (promyelocytes, myelocytes and metamyelocytes) > 1% indicates that a LEFT SHIFT is Present. MCH (RBC) [Entitic mass] 25.5 pg 27.0-32.0 [facility] Nucleated RBC/100 WBC (Bld) [Ratio] 0.2 % 0-5 [facility] MCHC Auto (RBC) [Mass/Vol]Or dered By: Matt Ashraf on 03-28-2023 MCHC (RBC) [Mass/Vol] 28.6 g/dL 32-36 [facility] No Panel InformationOrdered By: Matt Ashraf on 03-28-2023 Estimated GFR (MDRD) Amer 80 mL/min >60 [facility] Comment on above: GFR Calc Estimated GFR (MDRD) Non-Af Amer 66 mL/min >60 [facility] Comment on above: Non- GFR Calc Platelets bldOrdered By: Frantz Ashraf on 03-28-2023 Platelets (Bld) [#/Vol] 309 10*3/uL 150-450 [facility] Serum or plasma albumin jerome urement (mass/volume)Ordered By: Matt Ashraf on 03-28-2023 Albumin [Mass/Vol] 3.0 g/dL 3.2-5.0 [facility] Serum or plasma albumin/glob ulin mass ratioOrdered By: Matt Ashraf on 03-28-2023 Albumin/Globulin [Mass ratio] 1.0 {ratio} 0.9-2.4 [facility] Serum or plasma calcium jerome urement (mass/volume)Ordered By: Matt Ashraf on 03-28-2023 Calcium [Mass/Vol] 8.5 mg/dL 8.5-10.1 [facility] Serum or plasma cholesterol in HDL measurement (mass/volume)Ordered By: Matt Ashraf on 03-28-2023 Cholesterol in HDL [Mass/Vol] 37 mg/dL >40 [facility] Comment on above: The drugs N-Acetylcy steine and Metamizole may falsely depress this assay. Reference Range HDL <40 mg/dL Low HDL Cholesterol HDL >or= 60 mg/dL High HDL Cholesterol Serum or plasma cholesterol in VLDL measurement (mass/volume)Ordered By: Matt Ashraf on 03-28-2023 Cholesterol in VLDL [Mass/Vol] 24 mg/dL 5-40 [facility] Serum or plasma creatinine m easurement (mass/volume)Ordered By: Matt Ashraf on 03-28-2023 Creatinine [Mass/Vol] 1.17 mg/dL 0.70-1.30 [facility] Comment on above: The validity of the calculated GFR & GFRAA in patients over 70 years has not been determined. Clinical correlation is essential. Serum or plasma low density lipoprotein (LDL) cholesterol measurement (mass/volume)Ordered By: Matt Ashraf on 03-28-2023 Cholesterol in LDL [Mass/Vol] 38 mg/dL 0-130 [facility] Serum or plasma urea nitroge n measurement (mass/volume)Ordered By: Matt Ashraf on 03-28-2023 Urea nitrogen [Mass/Vol] 12 mg/dL 7-18 [facility] Thin prep Papanicolaou smear with manual screeningOrdered By: Matt Ashraf on 03-28-2023 Thin prep Papanicolaou smear with manual screening 18 U/L 15-37 [facility] Thin prep Papanicolaou smear with manual screening 5 5-15 [facility] [id number] 03-27-2023 SARS-CoV-2 (COVID-19) RNA PAMELA+probe Ql (Unsp spec) Negative Normal Negative [facility] ([place] Comment on above: Performed By: #### R BCP #### [address] [address] SARS-CoV-2 (COVID-19) RNA PAMELA+probe Ql (Unsp spec) Normal [facility] ([place] Comment on above: Result Comment: Nega tive [...] Int Performed By: #### R BCP #### [address] [address] .Auto Diffon 03-26-2023 Basophil, Absolute 0.1 10 3/mcL Normal 0.0-0.2 [facility] ([place] Comment on above: Performed By: #### O CC #### [address] [address] Basophils/100 WBC (Bld) 1.3 % Normal 0.0-2.5 [facility] ([place] Comment on above: Performed By: #### O CC #### [address] [address] Eosinophil, Absolute 0.6 10 3/mcL High 0.0-0.4 [facility] ([place] Comment on above: Performed By: #### O CC #### [address] [address] Eosinophils/100 WBC (Bld) 6.5 % Normal 0.0-7.0 [facility] ([place] Comment on above: Performed By: #### O CC #### [address] [address] Lymphocyte, Absolute 1.9 10 3/mcL Normal 0.8-3.9 [facility] ([place] Comment on above: Performed By: #### O CC #### [address] [address] Lymphocytes/100 WBC (Bld) 20.6 % Normal 10.0-50.0 [facility] ([place] Comment on above: Performed By: #### O CC #### [address] [address] Monocyte, Absolute 1.2 10 3/mcL High 0.2-1.0 [facility] ([place] Comment on above: Performed By: #### O CC #### [address] [address] Monocytes/100 WBC (Bld) 13.7 % High 1.7-13.0 [facility] ([place] Comment on above: Performed By: #### O CC #### [address] [address] Neutrophils/100 WBC (Bld) 57.9 % Normal 37.0-80.0 [facility] ([place] Comment on above: Performed By: #### O CC #### [address] [address] .GFRon 03-26-2023 GFR 76 ml/min/1.73sqm Normal [facility] ([place] Comment on above: Result Comment: GFR Population [...] meters Performed By: #### F ES, #### [address] [address] GFR Non- 63 ml/min/1.73sqm Normal [facility] ([place] Comment on above: Result Comment: GFR Population [...] meters Performed By: #### F ES, #### [address] [address] .NEUABSon 03-26-2023 Neutrophil, Absolute 5.3 10 3/mcL Normal 2.9-6.2 [facility] ([place] Comment on above: Performed By: #### O CC #### [address] [address] BMPon 03-26-2023 BUN/Creatinine Ratio 8 ratio Normal 7-27 [facility] ([place] Comment on above: Performed By: #### O CC #### [address] [address] Calcium [Mass/Vol] 8.0 mg/dL Low 8.4-10.2 [facility] ([place] Comment on above: Performed By: #### O CC #### [address] [address] Chloride [Moles/Vol] 108 mmol/L High 98-107 [facility] ([place] Comment on above: Performed By: #### O CC #### [address] [address] CO2 [Moles/Vol] 26 mmol/L Normal 23-31 [facility] ([place] Comment on above: Performed By: #### O CC #### [address] [address] Creatinine [Mass/Vol] 1.16 mg/dL Normal 0.70-1.30 [facility] ([place] Comment on above: Performed By: #### O CC #### [address] [address] Electrolyte Balance 9.0 mEq/L Normal 4.0-15.0 [facility] ([place] Comment on above: Performed By: #### O CC #### [address] [address] Glucose [Mass/Vol] 82 mg/dL Normal 80-115 [facility] ([place] Comment on above: Performed By: #### O CC #### [address] [address] Potassium [Moles/Vol] 3.8 mmol/L Normal 3.5-5.1 [facility] ([place] Comment on above: Performed By: #### O CC #### [address] [address] Sodium [Moles/Vol] 143 mmol/L Normal 136-145 [facility] ([place] Comment on above: Performed By: #### O CC #### [address] [address] Urea nitrogen [Mass/Vol] 9 mg/dL Normal 7-18 [facility] ([place] Comment on above: Performed By: #### O CC #### [address] [address] CBCon 03-26-2023 Erythrocyte distribution width (RBC) [Ratio] 17.2 % High 11.5-14.5 [facility] ([place] Comment on above: Performed By: #### O CC #### [address] [address] Hematocrit (Bld) [Volume fraction] 29.1 % Low 42.0-52.0 [facility] ([place] Comment on above: Performed By: #### O CC #### [address] [address] Hgb 9.6 G/dL Low 14.0-18.0 [facility] ([place] Comment on above: Performed By: #### O CC #### [address] [address] MCH (RBC) [Entitic mass] 26.2 pg Low 27.0-31.2 [facility] ([place] Comment on above: Performed By: #### O CC #### [address] [address] MCHC 32.8 G/dL Normal 31.8-35.4 [facility] ([place] Comment on above: Performed By: #### O CC #### [address] [address] MCV (RBC) [Entitic vol] 79.9 fL Low 80.0-94.0 [facility] ([place] Comment on above: Performed By: #### O CC #### [address] [address] Platelet 275 10 3/mcL Normal 130-400 [facility] ([place] Comment on above: Performed By: #### O CC #### [address] [address] Platelet mean volume (Bld) [Entitic vol] 7.6 fL Normal 7.4-10.4 [facility] ([place] Comment on above: Performed By: #### O CC #### [address] [address] RBC 3.65 10 6/mcL Low 4.04-6.13 [facility] ([place] Comment on above: Performed By: #### O CC #### [address] [address] WBC 9.1 10 3/mcL Normal 4.6-10.8 [facility] ([place] Comment on above: Performed By: #### O CC #### [address] [address] MGon 03-26-2023 Magnesium [Mass/Vol] 2.1 mg/dL Normal 1.8-2.4 [facility] ([place] Comment on above: Performed By: #### F ES, HH #### [address] [address] .Auto Diffon 03-25-2023 Basophil, Absolute 0.1 10 3/mcL Normal 0.0-0.2 [facility] ([place] Comment on above: Performed By: #### R BCP #### [address] [address] Basophils/100 WBC (Bld) 1.2 % Normal 0.0-2.5 [facility] ([place] Comment on above: Performed By: #### R BCP #### [address] [address] Eosinophil, Absolute 0.5 10 3/mcL High 0.0-0.4 [facility] ([place] Comment on above: Performed By: #### R BCP #### [address] [address] Eosinophils/100 WBC (Bld) 5.8 % Normal 0.0-7.0 [facility] ([place] Comment on above: Performed By: #### R BCP #### [address] [address] Lymphocyte, Absolute 2.0 10 3/mcL Normal 0.8-3.9 [facility] ([place] Comment on above: Performed By: #### R BCP #### [address] [place] [address] Lymphocytes/100 WBC (Bld) 20.9 % Normal 10.0-50.0 [facility] ([place] Comment on above: Performed By: #### R BCP #### [address] [address] Monocyte, Absolute 1.3 10 3/mcL High 0.2-1.0 [facility] ([place] Comment on above: Performed By: #### R BCP #### [address] [address] Monocytes/100 WBC (Bld) 13.7 % High 1.7-13.0 [facility] ([place] Comment on above: Performed By: #### R BCP #### [address] [address] Neutrophils/100 WBC (Bld) 58.4 % Normal 37.0-80.0 [facility] ([place] Comment on above: Performed By: #### R BCP #### [address] [address] .GFRon 03-25-2023 GFR 72 ml/min/1.73sqm Normal [facility] ([place] Comment on above: Result Comment: GFR Population [...] meters Performed By: #### R BCP #### [address] [address] GFR Non- 59 ml/min/1.73sqm Normal [facility] [place] Comment on above: Result Comment: GFR Population [...] meters Performed By: #### R BCP #### [address] [address] .NEUABSon 03-25-2023 Neutrophil, Absolute 5.5 10 3/mcL Normal 2.9-6.2 [facility] ([place] Comment on above: Performed By: #### R BCP #### [address] [address] BMPon 03-25-2023 BUN/Creatinine Ratio 9 ratio Normal 7-27 [facility] ([place] Comment on above: Performed By: #### R BCP #### [address] [address] Calcium [Mass/Vol] 7.8 mg/dL Low 8.4-10.2 [facility] ([place] Comment on above: Performed By: #### R BCP #### [address] [address] Chloride [Moles/Vol] 108 mmol/L High 98-107 [facility] ([place] Comment on above: Performed By: #### R BCP #### [address] [address] CO2 [Moles/Vol] 28 mmol/L Normal 23-31 [facility] ([place] Comment on above: Performed By: #### R BCP #### [address] [address] Creatinine [Mass/Vol] 1.22 mg/dL Normal 0.70-1.30 [facility] ([place] Comment on above: Performed By: #### R BCP #### [address] [address] Electrolyte Balance 8.0 mEq/L Normal 4.0-15.0 [facility] ([place] Comment on above: Performed By: #### R BCP #### [address] [address] Glucose [Mass/Vol] 82 mg/dL Normal 80-115 [facility] ([place] Comment on above: Performed By: #### R BCP #### [address] [address] Potassium [Moles/Vol] 3.6 mmol/L Normal 3.5-5.1 [facility] ([place] Comment on above: Performed By: #### R BCP #### [address] [address] Sodium [Moles/Vol] 144 mmol/L Normal 136-145 [facility] ([place] Comment on above: Performed By: #### R BCP #### [address] [address] Urea nitrogen [Mass/Vol] 11 mg/dL Normal 7-18 [facility] ([place] Comment on above: Performed By: #### R BCP #### [address] [address] CBCon 03-25-2023 Erythrocyte distribution width (RBC) [Ratio] 17.3 % High 11.5-14.5 [facility] ([place] Comment on above: Performed By: #### R BCP #### [address] [address] Hematocrit (Bld) [Volume fraction] 28.5 % Low 42.0-52.0 [facility] ([place] Comment on above: Performed By: #### R BCP #### [address] [address] Hgb 9.2 G/dL Low 14.0-18.0 [facility] ([place] Comment on above: Performed By: #### R BCP #### [address] [address] MCH (RBC) [Entitic mass] 25.9 pg Low 27.0-31.2 [facility] ([place] Comment on above: Performed By: #### R BCP #### [address] [address] MCHC 32.2 G/dL Normal 31.8-35.4 [facility] ([place] Comment on above: Performed By: #### R BCP #### [address] [address] MCV (RBC) [Entitic vol] 80.5 fL Normal 80.0-94.0 [facility] ([place] Comment on above: Performed By: #### R BCP #### [address] [address] Platelet 267 10 3/mcL Normal 130-400 [facility] ([place] Comment on above: Performed By: #### R BCP #### [address] [address] Platelet mean volume (Bld) [Entitic vol] 7.9 fL Normal 7.4-10.4 [facility] ([place]) Comment on above: Performed By: #### R BCP #### [address] [address] RBC 3.54 10 6/mcL Low 4.04-6.13 [facility] ([place]) Comment on above: Performed By: #### R BCP #### [address] [address] WBC 9.4 10 3/mcL Normal 4.6-10.8 [facility] ([place]) Comment on above: Performed By: #### R BCP #### [address] [address] XR CHEST 2 VIEWSon XR CHEST 2 [...] 03/25/2023 2:24:28 PM Ordering Provider: KYLIE Robles [facility] ([place]) .Auto Diffon 03-24-2023 Basophil, Absolute 0.1 10 3/mcL Normal 0.0-0.2 [facility] ([place] Comment on above: Performed By: #### F ES, #### [address] [address] Basophils/100 WBC (Bld) 1.0 % Normal 0.0-2.5 [facility] ([place]) Comment on above: Performed By: #### F ES, #### [address] [address] Eosinophil, Absolute 0.5 10 3/mcL High 0.0-0.4 [facility] ([place] Comment [place] above: Performed By: #### F ES, #### [address] [address] Eosinophils/100 WBC (Bld) 4.5 % Normal 0.0-7.0 [facility] ([place] Comment on above: Performed By: #### F ES, #### [address] [address] Lymphocyte, Absolute 1.9 10 3/mcL Normal 0.8-3.9 [facility] ([place]) Comment on above: Performed By: #### F ES, #### [address] [address] Lymphocytes/100 WBC (Bld) 18.0 % Normal 10.0-50.0 [facility] ([place] Comment on above: Performed By: #### F ES, #### [address] [address] Monocyte, Absolute 1.2 10 3/mcL High 0.2-1.0 [facility] ([place] Comment on above: Performed By: #### F ES, HH #### [address] [address] Monocytes/100 WBC (Bld) 10.9 % Normal 1.7-13.0 A [facility] ([place]) Comment on above: Performed By: #### F ES, HH #### [address] [address] Neutrophils/100 WBC (Bld) 65.6 % Normal 37.0-80.0 [facility] ([place] Comment on above: Performed By: #### F ES, #### [address] [address] .GFRon 03-24-2023 GFR 70 ml/min/1.73sqm Normal [facility] ([place]) Comment on above: Result Comment: GFR [...] meters Performed By: #### F ES, #### [address] [address] GFR Non- 58 ml/min/1.73sqm Normal [facility] ([place] Comment on above: Result Comment: GFR Population [...] meters Performed By: #### F ES, #### [address] [address] .NEUABSon 03-24-2023 Neutrophil, Absolute 7.1 10 3/mcL High 2.9-6.2 [facility] ([place]) Comment on above: Performed By: #### F ES, #### [address] [address] BMPon 03-24-2023 BUN/Creatinine Ratio 10 ratio Normal 7-27 [facility] ([place] Comment [place] above: Performed By: #### F ES, #### [address] [address] Calcium [Mass/Vol] 8.0 mg/dL Low 8.4-10.2 [facility] ([place]) Comment on above: Performed By: #### F ES, #### [address] [address] Chloride [Moles/Vol] 107 mmol/L Normal 98-107 [facility] ([place] Comment on above: Performed By: #### F ES, HH #### [address] [address] CO2 [Moles/Vol] 28 mmol/L Normal 23-31 [facility] ([place]) Comment on above: Performed By: #### F ES, #### [address] [address] Creatinine [Mass/Vol] 1.25 mg/dL Normal 0.70-1.30 [facility] ([place]) Comment on above: Performed By: #### F ES, #### [address] [address] Electrolyte Balance 9.0 mEq/L Normal 4.0-15.0 [facility] ([place]) Comment on above: Performed By: #### F ES, HH #### [address] [address] Glucose [Mass/Vol] 78 mg/dL Low 80-115 [facility] ([place] Comment on above: Performed By: #### F ES, HH #### [address] [address] Potassium [Moles/Vol] 3.8 mmol/L Normal 3.5-5.1 [facility] ([place] Comment on above: Performed By: #### F ES, HH #### [address] [address] Sodium [Moles/Vol] 144 mmol/L Normal 136-145 [facility] ([place] Comment on above: Performed By: #### F ES, #### [address] [address] Urea nitrogen [Mass/Vol] 12 mg/dL Normal 7-18 [facility] ([place]) Comment on above: Performed By: #### F ES, #### [address] [address] CBCon 03-24-2023 Erythrocyte distribution width (RBC) [Ratio] 17.0 % High 11.5-14.5 [facility] ([place]) Comment on above: Performed By: #### F ES, #### [address] [address] Hematocrit (Bld) [Volume fraction] 27.1 % Low 42.0-52.0 [facility] ([place] Comment on above: Performed By: #### F ES, #### [address] [address] Hgb 9.0 G/dL Low 14.0-18.0 [facility] ([place] Comment on above: Performed By: #### F ES, #### [address] [address] MCH (RBC) [Entitic mass] 26.3 pg Low 27.0-31.2 [facility] ([place] Comment on above: Performed By: #### F ES, HH #### [address] [address] MCHC 33.0 G/dL Normal 31.8-35.4 [facility] ([place] Comment on above: Performed By: #### F ES, HH #### [address] [address] MCV (RBC) [Entitic vol] 79.7 fL Low 80.0-94.0 [facility] ([place] Comment [place] above: Performed By: #### F ES, #### [address] [address] Platelet 296 10 3/mcL Normal 130-400 [facility] ([place] Comment on above: Performed By: #### F ES, #### [address] [address] Platelet mean volume (Bld) [Entitic vol] 7.8 fL Normal 7.4-10.4 [facility] ([place] Comment on above: Performed By: #### F ES, #### [address] [address] RBC 3.40 10 6/mcL Low 4.04-6.13 [facility] ([place] Comment on above: Performed By: #### F ES, HH #### [address] [address] WBC 10.8 10 3/mcL Normal 4.6-10.8 [facility] ([place] Comment on above: Performed By: #### F ES, #### [address] [address] HHon 03-24-2023 Hematocrit (Bld) [Volume fraction] 24.7 % Low 42.0-52.0 [facility] ([place] Comment on above: Performed By: #### R BCP #### [address] [address] Hgb 8.3 G/dL Low 14.0-18.0 [facility] ([place] Comment on above: Performed By: #### R BCP #### [address] [address] OCC (LAB)on 03-24-2023 Occult Blood Fecal Positive Abnormal Negative [facility] ([place] Comment [place]: Order Comment: #1 Performed By: #### O CC #### [address] [address] .GFRon 03-23-2023 GFR 56 ml/min/1.73sqm Normal [facility] ([place]) Comment on above: Result Comment: GFR Population [...] Performed By: #### F ES, HH #### [address] [address] GFR Non- 46 ml/min/1.73sqm Normal [facility] ([place] Comment on above: Result Comment: GFR Population [...] Performed By: #### F LUIS FELIPE, #### [address] [address] BMPon 03-23-2023 BUN/Creatinine Ratio 12 ratio Normal 7-27 [facility] ([place] Comment [place] above: Performed By: #### F LUIS FELIPE, HH #### [address] [address] Calcium [Mass/Vol] 8.1 mg/dL Low 8.4-10.2 [facility] ([place] Comment on above: Performed By: #### F LUIS FELIPE, HH #### [address] [address] Chloride [Moles/Vol] 107 mmol/L Normal 98-107 [facility] ([place] Comment on above: Performed By: #### F ES, #### [address] [address] CO2 [Moles/Vol] 27 mmol/L Normal 23-31 [facility] ([place] Comment on above: Performed By: #### F ES, #### [address] [address] Creatinine [Mass/Vol] 1.51 mg/dL High 0.70-1.30 [facility] ([place] Comment [place] above: Performed By: #### F ES, HH #### [address] [address] Electrolyte Balance 6.0 mEq/L Normal 4.0-15.0 [facility] [place] Comment [place] above: Performed By: #### F ES, HH #### [address] [address] Glucose [Mass/Vol] 85 mg/dL Normal 80-115 [facility] [place] Comment [place] above: Performed By: #### F ES, HH #### [address] [address] Potassium [Moles/Vol] 3.9 mmol/L Normal 3.5-5.1 [facility] ([place] Comment on above: Performed By: #### F ES, #### [address] [address] Sodium [Moles/Vol] 140 mmol/L Normal 136-145 [facility] [place] Comment [place] above: Performed By: #### F ES, #### [address] [address] Urea nitrogen [Mass/Vol] 18 mg/dL Normal 7-18 [facility] ([place] Comment on above: Performed By: #### F ES, #### [address] [address] FESon 03-23-2023 Iron [Mass/Vol] 58 ug/dL Low 65-175 [facility] [place] Comment on above: Performed By: #### F ES, #### [address] [address] Iron Sat 15 % Normal [facility] ([place] Comment on above: Performed By: #### F ES, #### [address] [address] TIBC 393 mcg/dL Normal 250-450 [facility] ([place] Comment on above: Performed By: #### F ES, #### [address] [address] Gel ABOon 03-23-2023 ABO/Rh Interp Positive Invalid Interpretation Code [facility] [place] Comment [place] above: Performed By: #### O CC #### [address] [address] Gel ABSon 03-23-2023 Antibody Screen Gel Negative Normal [facility] [place] Comment on above: Performed By: #### O CC #### [address] [address] HHon 03-23-2023 Hematocrit (Bld) [Volume fraction] 24.1 % Low 42.0-52.0 [facility] ([place] Comment on above: Performed By: #### R BCP #### [address] [address] Hgb 7.8 G/dL Low 14.0-18.0 [facility] ([place] Comment on above: Performed By: #### R BCP #### [address] [address] Hematocrit (Bld) [Volume fraction] 25.8 % Low 42.0-52.0 [facility] ([place] Comment on above: Performed By: #### R BCP #### [address] [address] Hgb 8.5 G/dL Low 14.0-18.0 [facility] ([place] Comment on above: Performed By: #### R BCP #### [address] [address] Hematocrit (Bld) [Volume fraction] 25.1 % Low 42.0-52.0 [facility] [place] Comment on above: Performed By: #### F ES, #### [address] [address] Hgb 8.3 G/dL Low 14.0-18.0 [facility] ([place] Comment on above: Performed By: #### F ES, HH #### [address] [address] Hematocrit (Bld) [Volume fraction] 22.1 % Low 42.0-52.0 [facility] ([place] Comment on above: Performed By: #### H H #### [address] [address] Hgb 7.1 G/dL Low 14.0-18.0 [facility] ([place] Comment on above: Performed By: #### H H #### [address] [address] MGon 03-23-2023 Magnesium [Mass/Vol] 2.3 mg/dL Normal 1.8-2.4 [facility] ([place] Comment [place] above: Performed By: #### F ES, #### [address] [address] RBC (Product)on 03-23-2023 RBC Product Ready RBC Ready for Pickup Normal [facility] ([place] Comment on above: Performed By: #### R BCP #### [address] [address] RBC Product Ready RBC Ready for Pickup Normal [facility] ([place] Comment on above: Performed By: #### R BCP #### [address] [address] XR SPINE THORACIC 2 VIEWSon 03-23-2023 XR [...] 03/23/2023 1:18:39 PM Ordering Provider: LAURIE Robles [facility] ([place]) .Auto Diffon 03-22-2023 Basophil, Absolute 0.1 10 3/mcL Normal 0.0-0.2 [facility] ([place] Comment on above: Performed By: #### R BCP #### [address] [address] Basophils/100 WBC (Bld) 1.1 % Normal 0.0-2.5 [facility] ([place] Comment on above: Performed By: #### R BCP #### [address] [address] Eosinophil, Absolute 0.3 10 3/mcL Normal 0.0-0.4 [facility] ([place] Comment on above: Performed By: #### R BCP #### [address] [address] Eosinophils/100 WBC (Bld) 2.8 % Normal 0.0-7.0 [facility] ([place] Comment on above: Performed By: #### R BCP #### [address] [address] Lymphocyte, Absolute 1.7 10 3/mcL Normal 0.8-3.9 [facility] ([place] Comment on above: Performed By: #### R BCP #### [address] [address] Lymphocytes/100 WBC (Bld) 16.8 % Normal 10.0-50.0 [facility] ([place] Comment on above: Performed By: #### R BCP #### [address] [address] Monocyte, Absolute 1.1 10 3/mcL High 0.2-1.0 [facility] ([place] Comment on above: Performed By: #### R BCP #### [address] [address] Monocytes/100 WBC (Bld) 10.7 % Normal 1.7-13.0 [facility] ([place] Comment on above: Performed By: #### R BCP #### [address] [address] Neutrophils/100 WBC (Bld) 68.6 % Normal 37.0-80.0 [facility] ([place] Comment on above: Performed By: #### R BCP #### [address] [address] .GFRon 03-22-2023 GFR 45 ml/min/1.73sqm Normal [facility] ([place] Comment on above: Result Comment: GFR Population [...] meters Performed By: #### R BCP #### [address] [address] GFR Non- 37 ml/min/1.73sqm Normal [facility] ([place] Comment on above: Result Comment: GFR Population [...] meters Performed By: #### R BCP #### [address] [address] .MDWon 03-22-2023 Monocyte Distribution Width 15.39 Normal 0.00-20.00 [facility] ([place]) Comment on above: Result Comment: For ED adult patients suspected of sepsis, MDW<=20.0 does not rule out sepsis or risk of sepsis Performed By: #### R BCP #### [address] [address] .NEUABSon 03-22-2023 Neutrophil, Absolute 6.9 10 3/mcL High 2.9-6.2 [facility] ([place] Comment on above: Performed By: #### R BCP #### [address] [address] BMPon 03-22-2023 BUN/Creatinine Ratio 10 ratio Normal 7-27 [facility] ([place] Comment on above: Performed By: #### R BCP #### [address] [address] Calcium [Mass/Vol] 8.4 mg/dL Normal 8.4-10.2 [facility] [place] Comment [place] above: Performed By: #### R BCP #### [address] [address] Chloride [Moles/Vol] 105 mmol/L Normal 98-107 [facility] [place] Comment on above: Performed By: #### R BCP #### [address] [address] CO2 [Moles/Vol] 23 mmol/L Normal 23-31 [facility] [place] Comment on above: Performed By: #### R BCP #### [address] [address] Creatinine [Mass/Vol] 1.82 mg/dL High 0.70-1.30 [facility] ([place] Comment [place] above: Performed By: #### R BCP #### [address] [address] Electrolyte Balance 13.0 mEq/L Normal 4.0-15.0 [facility] [place] Comment [place] above: Performed By: #### R BCP #### [address] [address] Glucose [Mass/Vol] 92 mg/dL Normal 80-115 [facility] [place] Comment on above: Performed By: #### R BCP #### [address] [address] Potassium [Moles/Vol] 4.6 mmol/L Normal 3.5-5.1 [facility] ([place] Comment on above: Performed By: #### R BCP #### [address] [address] Sodium [Moles/Vol] 141 mmol/L Normal 136-145 [facility] [place] Comment [place] above: Performed By: #### R BCP #### [address] [address] Urea nitrogen [Mass/Vol] 18 mg/dL Normal 7-18 [facility] [place] Comment on above: Performed By: #### R BCP #### [address] [address] CBCon 03-22-2023 Erythrocyte distribution width (RBC) [Ratio] 17.3 % High 11.5-14.5 [facility] [place] Comment on above: Performed By: #### R BCP #### [address] [address] Hematocrit (Bld) [Volume fraction] 20.7 % Low 42.0-52.0 [facility] [place] Comment on above: Performed By: #### R BCP #### [address] [address] Hgb 6.5 G/dL Critically abnormal 14.0-18.0 [facility] [place] Comment on above: Performed By: #### R BCP #### [address] [address] MCH (RBC) [Entitic mass] 24.3 pg Low 27.0-31.2 [facility] [place] Comment on above: Performed By: #### R BCP #### [address] [address] MCHC 31.1 G/dL Low 31.8-35.4 [facility] ([place] Comment on above: Performed By: #### R BCP #### [address] [address] MCV (RBC) [Entitic vol] 77.9 fL Low 80.0-94.0 [facility] [place] Comment [place] above: Performed By: #### R BCP #### [address] [address] Platelet 344 10 3/mcL Normal 130-400 [facility] [place] Comment on above: Performed By: #### R BCP #### [address] [address] Platelet mean volume (Bld) [Entitic vol] 7.2 fL Low 7.4-10.4 [facility] [place] Comment on above: Performed By: #### R BCP #### [address] [place] [address] [place], [place] [address] RBC 2.66 10 6/mcL Low 4.04-6.13 [facility] [place] Comment on above: Performed By: #### R BCP #### [address] [place] [address] [place], [place] [address] WBC 10.1 10 3/mcL Normal 4.6-10.8 [facility] [place] Comment on above: Performed By: #### R BCP #### [address] [address] [address] HEAD OR BRAIN W/O CONTRAS Ton [...] 03/22/2023 9:24:30 PM Ordering Provider: MATTHEW Robles [facility] ([place]) XR CHEST 1 VIEWon 03-22-2023 XR CHEST [...] 03/22/2023 9:20:32 PM Ordering Provider: MATTHEW Robles [facility] ([place] XR HIP RIGHT W/PELVIS 4 VIEW Son [...] 03/22/2023 9:38:00 PM Ordering Provider: MATTHEW AVALOS [facility] ([place] CT HEAD OR BRAIN W/O CONTRAS Ton [...] 03/21/2023 5:15:43 PM Ordering Provider: MARIANO HOPKINS [facility] ([place]) No Panel Informationon 03-12 [facility] SPIROMETRY WITH DILATOR IF O BSTRUCTEDon 03-12-2023 DLCO (ml/min/mmHg) 7.95 ml/min/mmHg [facility] DLCO/VA (ml/min/mmHg/L) 1.91 ml/min/mmHg/L [facility] MKL62-29% POST (L/S) 0.63 L/S [facility] BNX63-56% PRE (L/S) 0.62 L/S [facility] FEV1 PRE (L) 1.78 L [facility] FEV1/FVC POST (%) 59 % [facility]1/[facility] PRE (%) 60 % [facility] FEV1_POST (L) 1.78 L [facility] FVC POST (L) 3.00 L [facility] FVC PRE (L) 2.95 L [facility] PEF POST (L/S) 3.89 L/S [facility] PEF PRE (L/S) 4.01 L/S [facility] VA (L) 4.17 L [facility] XR Chest PA and Lateralon IMPRESSION: Prominence of the bilateral pulmonary markings. Reclamation Kettle Tender: [email or web address] Transcribe Date/Time: Dec 05 2022 11:30A Dictated by : BETO CONTRERAS MD This examination was interpreted and the report reviewed and electronically signed by: BETO CONTRERAS MD on Dec 05 2022 11:32AM [facility] DIVISION OF RADIOLOGY * * *Final Report* [...] aortic arch level. DIVISION OF RADIOLOGY Provider, [facility] Marv [facility] - 12/05/2022 * * *Final Report* * [...] IMPRESSION: Prominence of the bilateral pulmonary markings. Reclamation Kettle Tender: [email or web address] Transcribe Date/Time: Dec 05 2022 11:30A Dictated by : BETO CONTRERAS MD This examination was interpreted and the report reviewed and electronically signed by: BETO CONTRERAS MD on Dec 05 2022 11:32AM EST [facility] XR Chest PA and LateralOrder ed By: [facility] Provider on 12-05-2022 [facility] XR Chest PA and Lateralon Radiology Study [facility]narrative[facility] .Auto Diffon 11-19-2022 Basophil, Absolute 0.1 10 3/mcL Normal 0.0-0.2 [facility] [place] Comment on above: Performed By: #### M G, CBC, ADIFF, CMP, GFR, ANEU #### [address] [address] Basophils/100 WBC (Bld) 0.6 % Normal 0.0-2.5 [facility] ([place] Comment on above: Performed By: #### M G, CBC, ADIFF, CMP, GFR, ANEU #### [address] [address] Eosinophil, Absolute 0.5 10 3/mcL High 0.0-0.4 [facility] ([place] Comment on above: Performed By: #### M G, CBC, ADIFF, CMP, GFR, ANEU #### [address] [address] Eosinophils/100 WBC (Bld) 4.7 % Normal 0.0-7.0 [facility] ([place] Comment on above: Performed By: #### M G, CBC, ADIFF, CMP, GFR, ANEU #### [address] [address] Lymphocyte, Absolute 3.2 10 3/mcL Normal 0.8-3.9 [facility] ([place] Comment on above: Performed By: #### M G, CBC, ADIFF, CMP, GFR, ANEU #### [address] [address] Lymphocytes/100 WBC (Bld) 28.8 % Normal 10.0-50.0 [facility] ([place] Comment on above: Performed By: #### M G, CBC, ADIFF, CMP, GFR, ANEU #### [address] [address] Monocyte, Absolute 1.2 10 3/mcL High 0.2-1.0 [facility] [place] Comment on above: Performed By: #### M G, CBC, ADIFF, CMP, GFR, ANEU #### [address] [address] Monocytes/100 WBC (Bld) 10.5 % Normal 1.7-13.0 [facility] [place] Comment on above: Performed By: #### M G, CBC, ADIFF, CMP, GFR, ANEU #### [address] [address] Neutrophils/100 WBC (Bld) 55.4 % Normal 37.0-80.0 [facility] [place] Comment on above: Performed By: #### M G, CBC, ADIFF, CMP, GFR, ANEU #### [address] [address] .GFRon 11-19-2022 GFR 74 ml/min/1.73sqm Normal [facility] [place] Comment on above: Result Comment: GFR Population [...] meters Performed By: #### O CC #### [address] [address] GFR Non- 61 ml/min/1.73sqm Normal [facility] [place] Comment on above: Result Comment: GFR Population [...] meters Performed By: #### O CC #### [address] [address] .NEUABSon 11-19-2022 Neutrophil, Absolute 6.2 10 3/mcL Normal 2.9-6.2 [facility] [place] Comment on above: Performed By: #### O CC #### [place] [address] CBCon 11-19-2022 Erythrocyte distribution width (RBC) [Ratio] 14.1 % Normal 11.5-14.5 [facility] [place] Comment on above: Performed By: #### M G, CBC, ADIFF, CMP, GFR, ANEU #### [place] [address] Hematocrit (Bld) [Volume fraction] 35.0 % Low 42.0-52.0 [facility] [place] Comment on above: Performed By: #### M G, CBC, ADIFF, CMP, GFR, ANEU #### [place] [address] Hgb 11.8 G/dL Low 14.0-18.0 [facility] [place] Comment on above: Performed By: #### M G, CBC, ADIFF, CMP, GFR, ANEU #### [place] [address] MCH (RBC) [Entitic mass] 29.1 pg Normal 27.0-31.2 [facility] [place] Comment on above: Performed By: #### M G, CBC, ADIFF, CMP, GFR, ANEU #### [place] [address] MCHC 33.6 G/dL Normal 31.8-35.4 [facility] [place] Comment on above: Performed By: #### M G, CBC, ADIFF, CMP, GFR, ANEU #### [place] [address] MCV (RBC) [Entitic vol] 86.6 fL Normal 80.0-94.0 [facility] [place] Comment on above: Performed By: #### M G, CBC, ADIFF, CMP, GFR, ANEU #### [address] [address] Platelet 327 10 3/mcL Normal 130-400 [facility] [place] Comment on above: Performed By: #### M G, CBC, ADIFF, CMP, GFR, ANEU #### [address] [address] Platelet mean volume (Bld) [Entitic vol] 8.2 fL Normal 7.4-10.4 [facility] [place] Comment on above: Performed By: #### M G, CBC, ADIFF, CMP, GFR, ANEU #### [address] [address] RBC 4.04 10 6/mcL Normal 4.04-6.13 [facility] [place] Comment on above: Performed By: #### M G, CBC, ADIFF, CMP, GFR, ANEU #### [address] [address] WBC 11.1 10 3/mcL High 4.6-10.8 [facility] [place] Comment on above: Performed By: #### M G, CBC, ADIFF, CMP, GFR, ANEU #### [address] [address] CMPon 11-19-2022 Albumin Level 3.4 G/dL Normal 3.4-4.8 [facility] [place] Comment on above: Performed By: #### O CC #### [address] [address] Albumin/Globulin [Mass ratio] 1.3 {ratio} Normal 1.1-2.5 [facility] [place] Comment on above: Performed By: #### O CC #### [address] [address] ALP [Catalytic activity/Vol] 92 U/L Normal 40-135 [facility] [place] Comment on above: Performed By: #### O CC #### [address] [address] ALT [Catalytic activity/Vol] 25 U/L Normal 16-63 [facility] [place] Comment on above: Performed By: #### O CC #### [address] [address] AST [Catalytic activity/Vol] 21 U/L Normal 10-40 [facility] ([place] Comment on above: Performed By: #### O CC #### [address] [address] Bili Total 0.8 mg/dL Normal 0.2-1.0 [facility] [place] Comment on above: Result Comment: Use of this assay is not recommended for patients undergoing treatment with eltrombopag due to the potential for falsely elevated results. Performed By: #### O CC #### [address] [address] BUN/Creatinine Ratio 13 ratio Normal 7-27 [facility] [place] Comment on above: Performed By: #### O CC #### [address] [address] Calcium [Mass/Vol] 8.8 mg/dL Normal 8.4-10.2 [facility] [place] Comment on above: Performed By: #### O CC #### [address] [address] Chloride [Moles/Vol] 106 mmol/L Normal 98-107 [facility] ([place] Comment on above: Performed By: #### O CC #### [address] [address] CO2 [Moles/Vol] 24 mmol/L Normal 23-31 [facility] ([place]) Comment on above: Performed By: #### O CC #### [address] [address] Creatinine [Mass/Vol] 1.19 mg/dL Normal 0.70-1.30 [facility] ([place]) Comment on above: Performed By: #### O CC #### [address] [address] Electrolyte Balance 12.0 mEq/L Normal 4.0-15.0 [facility] ([place]) Comment on above: Performed By: #### O CC #### [address] [address] Globulin 2.7 G/dL Normal [facility] ([place]) Comment on above: Performed By: #### O CC #### [id number] [place], [place] [address] Glucose [Mass/Vol] 89 mg/dL Normal 80-115 [facility] ([place]) Comment on above: Performed By: #### O CC #### [address] [address] Potassium [Moles/Vol] 3.8 mmol/L Normal 3.5-5.1 [facility] ([place]) Comment on above: Performed By: #### O CC #### [address] [address] Sodium [Moles/Vol] 142 mmol/L Normal 136-145 [facility] ([place]) Comment on above: Performed By: #### O CC #### [address] [address] Total Protein 6.1 G/dL Low 6.4-8.2 [facility] ([place]) Comment on above: Performed By: #### O CC #### [address] [address] Urea nitrogen [Mass/Vol] 15 mg/dL Normal 7-18 [facility]) Comment on above: Performed By: #### O CC #### [address] [address] LABORATORYOrdered By: SYSTEM SYSTEM on 11-19-2022 Albumin [...] 11-19-2022 Magnesium [Mass/Vol] 2.1 mg/dL Normal 1.8-2.4 [facility] ([place] Comment on above: Performed By: #### O #### [address] [address] PBNPon 11-19-2022 Natriuretic peptide B (Bld) [Mass/Vol] 322 pg/mL High 0-125 [facility] ([place]) Comment on above: Result Comment: NT-p roBNP results of less than 300 pg/mL effectively rules out acute congestive heart failure with 99% negative predictive value. Performed By: #### F ES, #### [address] [address] XR CHEST 2 VIEWSon 3 XR CHEST [...] 11/19/2022 7:51:22 AM Ordering Provider: KYLIE Robles [facility] ([place]) .Auto Diffon 11-18-2022 Basophil, Absolute 0.1 10 3/mcL Normal 0.0-0.2 [facility] ([place]) Comment on above: Performed By: #### F ES, HH #### [address] [address] Basophils/100 WBC (Bld) 0.6 % Normal 0.0-2.5 [facility] ([place]) Comment on above: Performed By: #### F ES, HH #### [address] [address] Eosinophil, Absolute 0.6 10 3/mcL High 0.0-0.4 [facility] ([place]) Comment on above: Performed By: #### F ES, HH #### [address] [address] Eosinophils/100 WBC (Bld) 5.3 % Normal 0.0-7.0 [facility] ([place] Comment on above: Performed By: #### F ES, #### [address] [address] Lymphocyte, Absolute 1.8 10 3/mcL Normal 0.8-3.9 [facility] ([place]) Comment on above: Performed By: #### F ES, #### [address] [address] Lymphocytes/100 WBC (Bld) 16.7 % Normal 10.0-50.0 [facility] ([place] Comment on above: Performed By: #### F ES, HH #### [address] [address] Monocyte, Absolute 0.8 10 3/mcL Normal 0.2-1.0 [facility] ([place] Comment on above: Performed By: #### F ES, HH #### [address] [address] Monocytes/100 WBC (Bld) 7.4 % Normal 1.7-13.0 [facility] ([place]) Comment on above: Performed By: #### F ES, HH #### [address] [address] Neutrophils/100 WBC (Bld) 70.0 % Normal 37.0-80.0 [facility] ([place] Comment on above: Performed By: #### F ES, #### [address] [address] .GFRon 11-18-2022 GFR 59 ml/min/1.73sqm Normal [facility] ([place]) Comment on above: Result Comment: GFR Population [...] meters Performed By: #### F ES, #### [address] [address] GFR Non- 49 ml/min/1.73sqm Normal [facility] ([place]) Comment on above: Result Comment: GFR Population [...] meters Performed By: #### F ES, #### [address] [address] .MDWon 11-18-2022 Monocyte Distribution Width 16.81 Normal 0.00-20.00 [facility] ([place]) Comment on above: Performed By: #### F ES, #### [address] [address] .Morphon 11-18-2022 Anisocytosis Ql (Bld) 1+ Normal [facility] ([place]) Comment on above: Performed By: #### F ES, HH #### [address] [address] Echinocytes 1+ Normal [facility] ([place] Comment on above: Performed By: #### F ES, HH #### [address] [address] Platelet Estimate Normal Normal [facility] ([place] Comment on above: Performed By: #### F ES, HH #### [address] [address] .NEUABSon 11-18-2022 Neutrophil, Absolute 7.6 10 3/mcL High 2.9-6.2 [facility] ([place]) Comment on above: Performed By: #### F ES, #### [address] [address] BMPon 11-18-2022 BUN/Creatinine Ratio 12 ratio Normal 7-27 [facility] ([place] Comment on above: Performed By: #### F ES, #### [address] [address] Calcium [Mass/Vol] 9.1 mg/dL Normal 8.4-10.2 [facility] ([place] Comment on above: Performed By: #### F ES, HH #### [address] [address] Chloride [Moles/Vol] 106 mmol/L Normal 98-107 [facility] [place] Comment on above: Performed By: #### F ES, HH #### [address] [address] CO2 [Moles/Vol] 25 mmol/L Normal 23-31 [facility] ([place] Comment on above: Performed By: #### F ES, #### [address] [address] Creatinine [Mass/Vol] 1.45 mg/dL High 0.70-1.30 [facility] ([place] Comment on above: Performed By: #### F ES, HH #### [address] [address] Electrolyte Balance 11.0 mEq/L Normal 4.0-15.0 [facility] [place] Comment on above: Performed By: #### F ES, HH #### [address] [address] Glucose [Mass/Vol] 91 mg/dL Normal 80-115 [facility] [place] Comment on above: Performed By: #### F ES, HH #### [address] [address] Potassium [Moles/Vol] 4.4 mmol/L Normal 3.5-5.1 [facility] ([place] Comment on above: Performed By: #### F ES, HH #### [address] [address] Sodium [Moles/Vol] 142 mmol/L Normal 136-145 [facility] [place] Comment on above: Performed By: #### F ES, HH #### [address] [address] Urea nitrogen [Mass/Vol] 18 mg/dL Normal 7-18 [facility] ([place] Comment on above: Performed By: #### F ES, HH #### [address] [address] CBCon 11-18-2022 Erythrocyte distribution width (RBC) [Ratio] 14.5 % Normal 11.5-14.5 [facility] ([place] Comment on above: Performed By: #### F ES, HH #### [address] [address] Hematocrit (Bld) [Volume fraction] 37.6 % Low 42.0-52.0 [facility] ([place] Comment on above: Performed By: #### F ES, HH #### [address] [address] Hgb 12.6 G/dL Low 14.0-18.0 [facility] ([place] Comment on above: Performed By: #### F ES, HH #### [address] [address] MCH (RBC) [Entitic mass] 29.6 pg Normal 27.0-31.2 [facility] ([place] Comment on above: Performed By: #### F ES, HH #### [address] [address] MCHC 33.6 G/dL Normal 31.8-35.4 [facility] ([place] Comment on above: Performed By: #### F ES, HH #### [address] [address] MCV (RBC) [Entitic vol] 88.1 fL Normal 80.0-94.0 [facility] ([place] Comment on above: Performed By: #### F ES, HH #### [address] [address] Platelet 353 10 3/mcL Normal 130-400 [facility] ([place] Comment on above: Performed By: #### F ES, HH #### [address] [address] Platelet mean volume (Bld) [Entitic vol] 8.5 fL Normal 7.4-10.4 [facility] ([place] Comment on above: Performed By: #### F ES, HH #### [address] [address] RBC 4.27 10 6/mcL Normal 4.04-6.13 [facility] ([place] Comment on above: Performed By: #### F ES, HH #### [address] [address] WBC 10.8 10 3/mcL Normal 4.6-10.8 [facility] ([place] Comment on above: Performed By: #### F , #### [address] [address] LABORATORYOrdered By: [employer] SYSTEM on 11-18-2022 Calcium [Mass/Vol] 9.1 mg/dL [...] B (Bld) [Mass/Vol] 255 pg/mL High 0-125 [facility] ([place] Comment on above: Result Comment: NT-p roBNP results of less than 300 pg/mL effectively rules out acute congestive heart failure with 99% negative predictive value. Performed By: #### F , #### [address] [address] TROPHSon 11-18-2022 Troponin I High Sensitivity 5.1 ng/L Normal 0.0-76.2 [facility] ([place] Comment on above: Performed By: #### F , #### [address] [address] XR CHEST 1 VIEWon 11-18-2022 XR CHEST [...] 11/18/2022 2:43:00 PM Ordering Provider: LILIBETH Robles [facility] ([place]) Absolute lymphocyte countOrd ered By: Dr. Burns on 11-15-2022 Lymphocytes Auto (Unsp spec) [#/Vol] 1.35 10*3/uL 0.83-4.51 [facility] Basophil percentageOrdered B y: Dr. Burns on 11-15-2022 Basophils/100 WBC (Bld) 1.0 % 0-1 [facility] Chloride [Moles/Vol] 106 mmol/L 98-107 [facility] Eosinophils/100 WBC (Bld) 8.3 % 0-5 [facility] Glucose [Mass/Vol] 88 mg/dL 74-106 [facility] Neutrophils (Bld) [#/Vol] 5.1 10*3/uL 2.0-7.7 [facility] Neutrophils/100 WBC (Bld) 60.7 % 47-70 [facility] Potassium [Moles/Vol] 3.3 mmol/L 3.5-5.1 [facility] Sodium [Moles/Vol] 138 mmol/L 136-145 [facility] WBC (Bld) [#/Vol] 8.4 10*3/uL 4.4-11.0 [facility] Blood erythrocytes count (nu mber/volume)Ordered By: Dr. Burns on 11-15-2022 RBC (Bld) [#/Vol] 4.00 10*6/uL 4.6-6.2 [facility] Blood hemoglobin measurement (mass/volume)Ordered By: Dr. Burns on 11-15-2022 Hemoglobin (Bld) [Mass/Vol] 11.7 g/dL 13.0-16.5 [facility] Blood lymphocytes/100 leukoc ytesOrdered By: Dr. Burns on 11-15-2022 Lymphocytes/100 WBC (Bld) 16.1 % 19-41 [facility] Blood monocytes/100 leukocyt esOrdered By: Dr. Burns on 11-15-2022 Monocytes/100 WBC (Bld) 12.1 % 0-10 [facility] Blood platelet mean volumeOr dered By: Dr. Burns on 11-15-2022 Platelet mean volume (Bld) [Entitic vol] 10.3 fL 6.2-12.0 [facility] Determination of erythrocyte mean corpuscular volume (MCV)Ordered By: Dr. Burns on 11-15-2022 MCV (RBC) [Entitic vol] 91.8 fL 80-94 [facility] Gram stain for investigation of transfusion reactionOrdered By: Dr. Escalante on 11-15-2022 Microscopic observation Gram stain Nom (Unsp spec) [facility] Hematocrit Auto (Bld) [Volum e fraction]Ordered By: Dr. Burns on 11-15-2022 Hematocrit (Bld) [Volume fraction] 36.7 % 40-54 [facility] Laboratory - Chemistry and C hemistry - challengeOrdered By: Dr. Burns on 11-15-2022 CO2 [Moles/Vol] 29.0 mmol/L 21.0-32.0 [facility] Urea nitrogen/Creatinine [Mass ratio] 12.7 mg/mg 10-20 [facility] Laboratory - Hematology and Cell countsOrdered By: Dr. Burns on 11-15-2022 Erythrocyte distribution width (RBC) [Entitic vol] 45.8 fL 35.1-43.9 [facility] Erythrocyte distribution width (RBC) [Ratio] 13.4 % 11.6-14.6 [facility] Immature granulocytes/100 WBC (Bld) 1.800 % 0.0-0.9 [facility] Comment on above: IG% - Immature Granu locytes (promyelocytes, myelocytes and metamyelocytes) > 1% indicates that a LEFT SHIFT is Present. MCH (RBC) [Entitic mass] 29.3 pg 27.0-32.0 [facility] Nucleated RBC/100 WBC (Bld) [Ratio] 0 % 0-5 [facility] MCHC Auto (RBC) [Mass/Vol]Or dered By: Dr. Burns on 11-15-2022 MCHC (RBC) [Mass/Vol] 31.9 g/dL 32-36 [facility] Microbial respiratory cultur eOrdered By: Dr. Escalante on 11-15-2022 Bacteria identified Respiratory culture Nom (Unsp spec) or Staphylococcus aureus isolated. [facility] No Panel InformationOrdered By: Dr. Burns on 11-15-2022 Estimated Creatinine Clearance Calc 67.29 ml/min [facility] Estimated GFR (MDRD) Amer 86 mL/min >60 [facility] Comment on above: GFR Calc Estimated GFR (MDRD) Non-Af Amer 71 mL/min >60 [facility] Comment on above: Non- GFR Calc Platelets bldOrdered By: Dr. Burns on 11-15-2022 Platelets (Bld) [#/Vol] 304 10*3/uL 150-450 [facility] Serum or plasma calcium jerome urement (mass/volume)Ordered By: Dr. Burns on 11-15-2022 Calcium [Mass/Vol] 9.0 mg/dL 8.5-10.1 [facility] Serum or plasma creatinine m easurement (mass/volume)Ordered By: Dr. Burns on 11-15-2022 Creatinine [Mass/Vol] 1.10 mg/dL 0.70-1.30 [facility] Comment on above: The validity of the calculated GFR & GFRAA in patients over 70 years has not been determined. Clinical correlation is essential. Serum or plasma urea nitroge n measurement (mass/volume)Ordered By: Dr. Burns on 11-15-2022 Urea nitrogen [Mass/Vol] 14 mg/dL 7-18 [facility] Thin prep Papanicolaou smear with manual screeningOrdered By: Dr. Burns on 11-15-2022 Thin prep Papanicolaou smear with manual screening 3 5-15 [facility] No Panel InformationOrdered By: Dr. Escalante on 11-14-2022 Streptococcus pneumoniae Antigen (M [facility] Serum procalcitonin measurem entOrdered By: Dr. Burns on 11-14-2022 Procalcitonin [Mass/Vol] 0.88 ng/mL 0.00-0.09 [facility] Comment on above: A procalcitonin (PCT [...] on 11-14-2022 L. pneumophila Ag Ql (U) [facility] Absolute lymphocyte countOrd ered By: Dr. Lin on 11-11-2022 Lymphocytes Auto (Unsp spec) [#/Vol] 1.13 10*3/uL 0.83-4.51 [facility] Assessment of wrist artery p atency prior to arterial punctureOrdered By: Dr. Lin on 11-11-2022 Arterial patency Wrist artery --pre arterial puncture Positive [facility] Base excessOrdered By: Dr. Hailey linares on 11-11-2022 Base excess Calc (BldV) [Moles/Vol] 2 mmol/L -2-2 [facility] Basophil percentageOrdered B y: Dr. Lin on 11-11-2022 Basophil percentage 25.8 mmol/L 22-26 [facility] Basophils/100 WBC (Bld) 91 % 95-99 [facility] Lactate [Moles/Vol] 1.9 mmol/L 0.4-2.0 [facility] Basophils/100 WBC (Bld) 0.3 % 0-1 [facility] Bilirubin [Mass/Vol] 1.30 mg/dL 0.20-1.00 [facility] Comment on above: For patients on eltr ombopag therapy, use of Dimension [place] TBIL is not recommended. Chloride [Moles/Vol] 105 mmol/L 98-107 [facility] Eosinophils/100 WBC (Bld) 0.1 % 0-5 [facility] Glucose [Mass/Vol] 104 mg/dL 74-106 [facility] Comment on above: Fasting Glucose resu lt from 100 to 125 mg/dL suggests IMPAIRED HOMEOSTASIS per A.D.A. criteria. Neutrophils (Bld) [#/Vol] 16.6 10*3/uL 2.0-7.7 [facility] Neutrophils/100 WBC (Bld) 85.8 % 47-70 [facility] Potassium [Moles/Vol] 4.1 mmol/L 3.5-5.1 [facility] Protein [Mass/Vol] 6.5 g/dL 6.4-8.2 [facility] Sodium [Moles/Vol] 136 mmol/L 136-145 [facility] WBC (Bld) [#/Vol] 19.4 10*3/uL 4.4-11.0 [facility] Blood erythrocytes count (nu mber/volume)Ordered By: Dr. Lin on 11-11-2022 RBC (Bld) [#/Vol] 3.97 10*6/uL 4.6-6.2 [facility] Blood hemoglobin measurement (mass/volume)Ordered By: Dr. Lin on 11-11-2022 Hemoglobin (Bld) [Mass/Vol] 11.7 g/dL 13.0-16.5 [facility] Blood lymphocytes/100 leukoc ytesOrdered By: Dr. Lin on 11-11-2022 Lymphocytes/100 WBC (Bld) 5.8 % 19-41 [facility] Blood monocytes/100 leukocyt esOrdered By: Dr. Lin on 11-11-2022 Monocytes/100 WBC (Bld) 7.5 % 0-10 [facility] Blood platelet mean volumeOr dered By: Dr. Lin on 11-11-2022 Platelet mean volume (Bld) [Entitic vol] 11.4 fL 6.2-12.0 [facility] CO2 (BldA) [Partial pressure ]Ordered By: Dr. Lin on 11-11-2022 CO2 (Bld) [Partial pressure] 37.8 mm[Hg] 35-45 [facility] Determination of erythrocyte mean corpuscular volume (MCV)Ordered By: Dr. Lin on 11-11-2022 MCV (RBC) [Entitic vol] 90.9 fL 80-94 [facility] Hematocrit Auto (Bld) [Volum e fraction]Ordered By: Dr. Lin on 11-11-2022 Hematocrit (Bld) [Volume fraction] 36.1 % 40-54 [facility] Influenza virus A and B and SARS-CoV-2 (COVID-19) Ag panel - Upper respiratory specimOrdered By: Dr. Lin on 11-11-2022 SARS-CoV-2 (COVID-19) RNA PAMELA+probe Ql (Resp) [facility] Laboratory - Chemistry and C hemistry - challengeOrdered By: Dr. Lin on 11-11-2022 ALP [Catalytic activity/Vol] 85 U/L 45-117 [facility] ALT [Catalytic activity/Vol] 22 U/L 16-61 [facility] CO2 [Moles/Vol] 24.0 mmol/L 21.0-32.0 [facility] Globulin (S) [Mass/Vol] 3.4 g/dL 2.2-4.2 [facility] Urea nitrogen/Creatinine [Mass ratio] 14.8 mg/mg 10-20 [facility] Laboratory - Hematology and Cell countsOrdered By: Dr. Lin on 11-11-2022 Erythrocyte distribution width (RBC) [Entitic vol] 44.3 fL 35.1-43.9 [facility] Erythrocyte distribution width (RBC) [Ratio] 13.4 % 11.6-14.6 [facility] Immature granulocytes/100 WBC (Bld) 0.500 % 0.0-0.9 [facility] Comment on above: IG% - Immature Granu locytes (promyelocytes, myelocytes and metamyelocytes) > 1% indicates that a LEFT SHIFT is Present. MCH (RBC) [Entitic mass] 29.5 pg 27.0-32.0 [facility] Nucleated RBC/100 WBC (Bld) [Ratio] 0 % 0-5 [facility] MCHC Auto (RBC) [Mass/Vol]Or dered By: Dr. Lin on 11-11-2022 MCHC (RBC) [Mass/Vol] 32.4 g/dL 32-36 [facility] No Panel InformationOrdered By: Dr. Lin on 11-11-2022 Blood Gas Liter Flow 6.0 /min [facility] Blood Gas Sample Site R Radial [facility] Blood Gas Specimen Type ART [facility] Blood Gas Total CO2 27 mmol/L [facility] Oxygen Delivery Device Cannula [facility] Estimated Creatinine Clearance Calc 56.00 ml/min [facility] Estimated GFR (MDRD) Amer 72 mL/min >60 [facility] Comment on above: GFR Calc Estimated GFR (MDRD) Non-Af Amer 60 mL/min >60 [facility] Comment on above: Non- GFR Calc Oxygen (BldA) [Partial press ure]Ordered By: Dr. Lin on 11-11-2022 Oxygen (Bld) [Partial pressure] 59 mmHG 75-100 [facility] Platelets bldOrdered By: Dr. Lin on 11-11-2022 Platelets (Bld) [#/Vol] 300 10*3/uL 150-450 [facility] Serum or plasma albumin jerome urement (mass/volume)Ordered By: Dr. Lin on 11-11-2022 Albumin [Mass/Vol] 3.1 g/dL 3.2-5.0 [facility] Serum or plasma albumin/glob ulin mass ratioOrdered By: Dr. Lin on 11-11-2022 Albumin/Globulin [Mass ratio] 0.9 {ratio} 0.9-2.4 [facility] Serum or plasma calcium jerome urement (mass/volume)Ordered By: Dr. Lin on 11-11-2022 Calcium [Mass/Vol] 8.8 mg/dL 8.5-10.1 [facility] Serum or plasma creatinine m easurement (mass/volume)Ordered By: Dr. Lin on 11-11-2022 Creatinine [Mass/Vol] 1.28 mg/dL 0.70-1.30 [facility] Comment on above: The validity of the calculated GFR & GFRAA in patients over 70 years has not been determined. Clinical correlation is essential. Serum or plasma urea nitroge n measurement (mass/volume)Ordered By: Dr. Lin on 11-11-2022 Urea nitrogen [Mass/Vol] 19 mg/dL 7-18 [facility] Serum procalcitonin measurem entOrdered By: Dr. Lin on 11-11-2022 Procalcitonin [Mass/Vol] 4.26 ng/mL 0.00-0.09 [facility] Comment on above: A procalcitonin (PCT [...] smear with manual screening 16 U/L 15-37 [facility] Thin prep Papanicolaou smear with manual screening 7 5-15 [facility] pH measurementOrdered By: Dr Muriel Lin on 11-11-2022 pH (Unsp spec) 7.44 [pH] 7.35-7.45 [facility] Culture, urineOrdered By: Dr Muriel Burns on 08-18-2022 Bacteria identified Cx Nom (U) Proteus mirabilis [facility] Absolute lymphocyte countOrd ered By: Dr. Burns on 08-17-2022 Lymphocytes Auto (Unsp spec) [#/Vol] 1.31 10*3/uL 0.83-4.51 [facility] Basophil percentageOrdered B y: Dr. Burns on 08-17-2022 Basophils/100 WBC (Bld) 0.2 % 0-1 [facility] Bilirubin [Mass/Vol] 0.70 mg/dL 0.20-1.00 [facility] Comment on above: For patients on eltr ombopag therapy, use of Dimension [place] TBIL is not recommended. Chloride [Moles/Vol] 107 mmol/L 98-107 [facility] Eosinophils/100 WBC (Bld) 0.0 % 0-5 [facility] Glucose [Mass/Vol] 139 mg/dL 74-106 [facility] Comment on above: Fasting Glucose resu lt greater than or equal to 126 mg/dL suggests DIABETES MELLITUS per A.D.A. criteria. Neutrophils (Bld) [#/Vol] 10.9 10*3/uL 2.0-7.7 [facility] Neutrophils/100 WBC (Bld) 87.1 % 47-70 [facility] Potassium [Moles/Vol] 4.0 mmol/L 3.5-5.1 [facility] Protein [Mass/Vol] 7.1 g/dL 6.4-8.2 [facility] Sodium [Moles/Vol] 140 mmol/L 136-145 [facility] WBC (Bld) [#/Vol] 12.5 10*3/uL 4.4-11.0 [facility] Blood erythrocytes count (nu mber/volume)Ordered By: Dr. Burns on 08-17-2022 RBC (Bld) [#/Vol] 4.41 10*6/uL 4.6-6.2 [facility] Blood hemoglobin measurement (mass/volume)Ordered By: Dr. Burns on 08-17-2022 Hemoglobin (Bld) [Mass/Vol] 13.3 g/dL 13.0-16.5 [facility] Blood lymphocytes/100 leukoc ytesOrdered By: Dr. Burns on 08-17-2022 Lymphocytes/100 WBC (Bld) 10.5 % 19-41 [facility] Blood monocytes/100 leukocyt esOrdered By: Dr. Burns on 08-17-2022 Monocytes/100 WBC (Bld) 1.2 % 0-10 [facility] Blood platelet mean volumeOr dered By: Dr. Burns on 08-17-2022 Platelet mean volume (Bld) [Entitic vol] 10.8 fL 6.2-12.0 [facility] Determination of erythrocyte mean corpuscular volume (MCV)Ordered By: Dr. Burns on 08-17-2022 MCV (RBC) [Entitic vol] 88.2 fL 80-94 [facility] Hematocrit Auto (Bld) [Volum e fraction]Ordered By: Dr. Burns on 08-17-2022 Hematocrit (Bld) [Volume fraction] 38.9 % 40-54 [facility] Laboratory - Chemistry and C hemistry - challengeOrdered By: Dr. Burns on 08-17-2022 ALP [Catalytic activity/Vol] 107 U/L 45-117 [facility] ALT [Catalytic activity/Vol] 26 U/L 16-61 [facility] CO2 [Moles/Vol] 24.0 mmol/L 21.0-32.0 [facility] Globulin (S) [Mass/Vol] 3.9 g/dL 2.2-4.2 [facility] Urea nitrogen/Creatinine [Mass ratio] 15.8 mg/mg 10-20 [facility] Laboratory - Hematology and Cell countsOrdered By: Dr. Burns on 08-17-2022 Erythrocyte distribution width (RBC) [Entitic vol] 42.3 fL 35.1-43.9 [facility] Erythrocyte distribution width (RBC) [Ratio] 13.1 % 11.6-14.6 [facility] Immature granulocytes/100 WBC (Bld) 1.000 % 0.0-0.9 [facility] Comment on above: IG% - Immature Granu locytes (promyelocytes, myelocytes and metamyelocytes) > 1% indicates that a LEFT SHIFT is Present. MCH (RBC) [Entitic mass] 30.2 pg 27.0-32.0 [facility] Nucleated RBC/100 WBC (Bld) [Ratio] 0.2 % 0-5 [facility] MCHC Auto (RBC) [Mass/Vol]Or dered By: Dr. Burns on 08-17-2022 MCHC (RBC) [Mass/Vol] 34.2 g/dL 32-36 [facility] Comment on above: Delta: 32.4 on 08/16-1015 No Panel InformationOrdered By: Dr. Burns on 08-17-2022 Estimated Creatinine Clearance Calc 62.88 ml/min [facility] Estimated GFR (MDRD) Amer 82 mL/min >60 [facility] Comment on above: GFR Calc Estimated GFR (MDRD) Non-Af Amer 68 mL/min >60 [facility] Comment on above: Non- GFR Calc Platelets bldOrdered By: Dr. Burns on 08-17-2022 Platelets (Bld) [#/Vol] 268 10*3/uL 150-450 [facility] Serum or plasma albumin jerome urement (mass/volume)Ordered By: Dr. Burns on 08-17-2022 Albumin [Mass/Vol] 3.2 g/dL 3.2-5.0 [facility] Serum or plasma albumin/glob ulin mass ratioOrdered By: Dr. Burns on 08-17-2022 Albumin/Globulin [Mass ratio] 0.8 {ratio} 0.9-2.4 [facility] Serum or plasma calcium jerome urement (mass/volume)Ordered By: Dr. Burns on 08-17-2022 Calcium [Mass/Vol] 8.7 mg/dL 8.5-10.1 [facility] Serum or plasma creatinine m easurement (mass/volume)Ordered By: Dr. Burns on 08-17-2022 Creatinine [Mass/Vol] 1.14 mg/dL 0.70-1.30 [facility] Comment on above: The validity of the calculated GFR & GFRAA in patients over 70 years has not been determined. Clinical correlation is essential. Serum or plasma urea nitroge n measurement (mass/volume)Ordered By: Dr. Burns on 08-17-2022 Urea nitrogen [Mass/Vol] 18 mg/dL 7-18 [facility] Thin prep Papanicolaou smear with manual screeningOrdered By: Dr. Burns on 08-17-2022 Thin prep Papanicolaou smear with manual screening 14 U/L 15-37 [facility] Thin prep Papanicolaou smear with manual screening 9 5-15 [facility] Absolute lymphocyte counton 08-16-2022 Lymphocytes Auto (Unsp spec) [#/Vol] 2.26 10*3/uL 0.83-4.51 [facility] Work Phone: Basophil percentageon 2022 Basophils/100 WBC (Bld) 0.8 % 0-1 [facility] Work Phone: Chloride [Moles/Vol] 111 mmol/L 98-107 [facility] Work Phone: Eosinophils/100 WBC (Bld) 6.3 % 0-5 [facility] Work Phone: Glucose [Mass/Vol] 131 mg/dL 74-106 [facility] Work Phone: Comment on above: Fasting Glucose resu lt greater than or equal to 126 mg/dL suggests DIABETES MELLITUS per A.D.A. criteria. Neutrophils (Bld) [#/Vol] 6.3 10*3/uL 2.0-7.7 [facility] Work Phone: Neutrophils/100 WBC (Bld) 60.3 % 47-70 [facility] Work Phone: [phone] Potassium [Moles/Vol] 4.1 mmol/L 3.5-5.1 [facility] Work Phone: [phone] Sodium [Moles/Vol] 143 mmol/L 136-145 [facility] Work Phone: [phone] WBC (Bld) [#/Vol] 10.4 10*3/uL 4.4-11.0 [facility] Work Phone: Bilirubin Test strip Ql (U)O rdered By: Dr. Burns on 08-16-2022 Bilirubin Ql (U) Negative Negative [facility] Blood erythrocytes count (nu mber/volume)on 08-16-2022 RBC (Bld) [#/Vol] 4.64 10*6/uL 4.6-6.2 [facility] Work Phone: Blood hemoglobin measurement (mass/volume)on 08-16-2022 Hemoglobin (Bld) [Mass/Vol] 13.6 g/dL 13.0-16.5 [facility] Work Phone: Blood lymphocytes/100 leukoc yteson 08-16-2022 Lymphocytes/100 WBC (Bld) 21.8 % 19-41 [facility] Work Phone: [phone] Blood monocytes/100 leukocyt eson 08-16-2022 Monocytes/100 WBC (Bld) 9.9 % 0-10 [facility] Work Phone: [phone] Blood platelet mean volumeon 08-16-2022 Platelet mean volume (Bld) [Entitic vol] 10.9 fL 6.2-12.0 [facility] Work Phone: COVID-19 virus antigen assay Ordered By: Dr. Lin on 08-16-2022 SARS-CoV-2 (COVID-19) Ag IA.rapid Ql (Resp) [facility] Determination of erythrocyte mean corpuscular volume (MCV)on 08-16-2022 MCV (RBC) [Entitic vol] 90.5 fL 80-94 [facility] Work Phone: Hematocrit Auto (Bld) [Volum e fraction]on 08-16-2022 Hematocrit (Bld) [Volume fraction] 42.0 % 40-54 [facility] Work Phone: Ketones Test strip Ql (U)Ord ered By: Dr. Burns on 08-16-2022 Ketones Ql (U) Negative Negative [facility] Laboratory - Chemistry and C hemistry - challengeon 08-16-2022 CO2 [Moles/Vol] 26.0 mmol/L 21.0-32.0 [facility] Work Phone: Urea nitrogen/Creatinine [Mass ratio] 11.8 mg/mg 10-20 [facility] Work Phone: Laboratory - Hematology and Cell countson 08-16-2022 Erythrocyte distribution width (RBC) [Entitic vol] 43.0 fL 35.1-43.9 [facility] Work Phone: Erythrocyte distribution width (RBC) [Ratio] 13.2 % 11.6-14.6 [facility] Work Phone: Immature granulocytes/100 WBC (Bld) 0.900 % 0.0-0.9 [facility] Work Phone: Comment on above: IG% - Immature Granu locytes (promyelocytes, myelocytes and metamyelocytes) > 1% indicates that a LEFT SHIFT is Present. MCH (RBC) [Entitic mass] 29.3 pg 27.0-32.0 [facility] Work Phone: Nucleated RBC/100 WBC (Bld) [Ratio] 0 % 0-5 [facility] Work Phone: Laboratory - Microbiology an d Antimicrobial susceptibilityOrdered By: Dr. Burns on 08-16-2022 SARS-CoV-2 (COVID-19) RNA PAMELA+probe Ql (Unsp spec) Not detected Not Detect [facility] Comment on above: Normal Reference Ran [...] 08-16-2022 MCHC (RBC) [Mass/Vol] 32.4 g/dL 32-36 [facility] Work Phone: [phone] Nitrite Test strip Ql (U)Ord ered By: Dr. Burns on 08-16-2022 Nitrite Ql (U) Negative Negative [facility] No Panel InformationOrdered By: Dr. Lin on 08-16-2022 D-Dimer Quantitative (PE/DVT) 0.31 FEU/ug/m 0.27-0.49 [facility] Comment on above: NORMAL D-Dimer level (<0.50) indicates no DVT or PE. No Panel Informationon 08-16 Estimated Creatinine Clearance Calc 56.44 ml/min [facility] Work Phone: Estimated GFR (MDRD) Amer 73 mL/min >60 [facility] Work Phone: Comment on above: GFR Calc Estimated GFR (MDRD) Non-Af Amer 60 mL/min >60 [facility] Work Phone: Comment on above: Non- GFR Calc Platelets bldon 08-16-2022 Platelets (Bld) [#/Vol] 302 10*3/uL 150-450 [facility] Work Phone: Protein Test strip Ql (U)Ord ered By: Dr. Burns on 08-16-2022 Protein Ql (U) 30 mg/dl Negative [facility] Serum or plasma calcium jerome urement (mass/volume)on 08-16-2022 Calcium [Mass/Vol] 9.0 mg/dL 8.5-10.1 [facility] Work Phone: Serum or plasma creatinine m easurement (mass/volume)on 08-16-2022 Creatinine [Mass/Vol] 1.27 mg/dL 0.70-1.30 [facility] Work Phone: Comment on above: The validity of the calculated GFR & GFRAA in patients over 70 years has not been determined. Clinical correlation is essential. Serum or plasma urea nitroge n measurement (mass/volume)on 08-16-2022 Urea nitrogen [Mass/Vol] 15 mg/dL 7-18 [facility] Work Phone: Thin prep Papanicolaou smear with manual screeningon 08-16-2022 Thin prep Papanicolaou smear with manual screening 6 5-15 [facility] Work Phone: Urine blood detectionOrdered By: Dr. Burns on 08-16-2022 RBC Ql (U) Negative Negative [facility] Urine clarityOrdered By: Dr. Burns on 08-16-2022 Clarity (U) Clear Clear [facility] Urine color determinationOrd ered By: Dr. Burns on 08-16-2022 Color (U) Yellow Yellow [facility] Urine glucose detectionOrder ed By: Dr. Burns on 08-16-2022 Glucose Ql (U) Normal mg/dl Normal [facility] Urine leukocyte esterase det ection by dipstickOrdered By: Dr. Burns on 08-16-2022 Leukocyte esterase Test strip Ql (U) Negative Negative [facility] Urine pHOrdered By: Dr. Roque thornton on 08-16-2022 pH (U) 6.5 [pH] 5.0 - 8.0 [facility] Urine specific gravity measu rementOrdered By: Dr. Burns on 08-16-2022 Specific gravity (U) [Rel density] 1.010 1.002-1.030 [facility] Urobilinogen Auto test strip Ql (U)Ordered By: Dr. Burns on 08-16-2022 Urobilinogen Ql (U) Normal mg/dl Normal [facility] Iron measurement (mass/mass) on 08-30-2021 Iron (Unsp spec) [Mass/Mass] 49 ug/dL 65-175 [facility] Work Phone: [phone] Laboratory - Chemistry and C hemistry - challengeon 08-30-2021 Albumin [Mass/Vol] 3.0 g/dL [facility] Work Phone: [phone] Cobalamin (Vitamin B12) [Mass/Vol] 458 pg/mL 211-911 [facility] Work Phone: [phone] No Panel Informationon 08-30 Addendum Document Comment: [facility] Work Phone: [phone] Comment on above: SPE SHOWS DECREASED TOTAL PROTEIN.Performed at: [employer] [place] [id number] Director: Efraín De Los Santos PhD, Phone: [phone] [id number] 0.2 g/dL [facility] Work Phone: [id number] 0.6 g/dL [facility] Work Phone: Gamma Globulins 0.9 g/dL [facility] Work Phone: [phone] Total Iron Binding Capacity 338 ug/dL 250-450 [facility] Work Phone: [phone] Protein Fractions Elph [Inte rp]on 08-30-2021 Protein Fractions [Interp] Comment [facility] Work Phone: [phone] Comment on above: Protein electrophore sis scan will follow via computer,mail, or relationship manager delivery. Serum albumin to globulin ra epi by protein electrophoresison 08-30-2021 Albumin/Globulin Elph [Mass ratio] 1.1 [facility] Work Phone: [phone] Serum globulin measurement ( mass/volume)on 08-30-2021 Globulin (S) [Mass/Vol] 2.8 g/dL [facility] Work Phone: Serum or plasma beta globuli n measurement by electrophoresis (mass/volume)on 08-30-2021 Beta globulin Elph [Mass/Vol] 1.0 g/dL [facility] Work Phone: [phone] Serum or plasma ferritin talita surement (mass/volume)on 08-30-2021 Ferritin [Mass/Vol] 20 ng/mL 26-388 [facility] Work Phone: [phone] Serum or plasma folate measu rement (mass/volume)on 08-30-2021 Folate [Mass/Vol] 24.10 ng/mL 3.1-55.4 [facility] Work Phone: [phone] Thin prep Papanicolaou smear with manual screeningon 08-30-2021 Thin prep Papanicolaou smear with manual screening See comment [facility] Work Phone: [phone] Comment on above: Result: Not Observed Total protein bloodon 2021 Protein [Mass/Vol] 5.8 g/dL [facility] Work Phone: No Panel Informationon 08-23 SARS-CoV-2 Antigen (Rapid) [facility] Work Phone: Absolute lymphocyte counton 08-22-2021 Lymphocytes Auto (Unsp spec) [#/Vol] 2.42 10*3/uL 0.83-4.51 [facility] Work Phone: Basophil percentageon 2021 Basophils/100 WBC (Bld) 0.3 % 0-1 [facility] Work Phone: Chloride [Moles/Vol] 106 mmol/L 98-107 [facility]: [phone] Eosinophils/100 WBC (Bld) 4.0 % 0-5 [facility] Work Phone: [phone] Glucose [Mass/Vol] 80 mg/dL 74-106 [facility] Work Phone: Neutrophils (Bld) [#/Vol] 6.8 10*3/uL 2.0-7.7 [facility] Work Phone: Neutrophils/100 WBC (Bld) 62.0 % 47-70 [facility] Work Phone: [phone] Potassium [Moles/Vol] 4.1 mmol/L 3.5-5.1 [facility] Work Phone: [phone] Sodium [Moles/Vol] 141 mmol/L 136-145 [facility] Work Phone: [phone] WBC (Bld) [#/Vol] 10.9 10*3/uL 4.4-11.0 [facility] Work Phone: [phone] Blood erythrocytes count (nu mber/volume)on 08-22-2021 RBC (Bld) [#/Vol] 3.94 10*6/uL 4.6-6.2 [facility] Work Phone: [phone] Blood hemoglobin measurement (mass/volume)on 08-22-2021 Hemoglobin (Bld) [Mass/Vol] 11.7 g/dL 13.0-16.5 [facility] Work Phone: [phone] Blood lymphocytes/100 leukoc yteson 08-22-2021 Lymphocytes/100 WBC (Bld) 22.2 % 19-41 [facility] Work Phone: [phone] Blood monocytes/100 leukocyt eson 08-22-2021 Monocytes/100 WBC (Bld) 10.0 % 0-10 [facility] Work Phone: [phone] Blood platelet mean volumeon 08-22-2021 Platelet mean volume (Bld) [Entitic vol] 10.1 fL 6.2-12.0 [facility] Work Phone: [phone] Determination of erythrocyte mean corpuscular volume (MCV)on 08-22-2021 MCV (RBC) [Entitic vol] 91.9 fL 80-94 [facility] Work Phone: Hematocrit Auto (Bld) [Volum e fraction]on 08-22-2021 Hematocrit (Bld) [Volume fraction] 36.2 % 40-54 [facility] Work Phone: [phone] Laboratory - Chemistry and C hemistry - challengeon 08-22-2021 CO2 [Moles/Vol] 30.0 mmol/L 21.0-32.0 [facility] Work Phone: [phone] Urea nitrogen/Creatinine [Mass ratio] 18.9 mg/mg 10-20 [facility] Work Phone: [phone] Laboratory - Hematology and Cell countson 08-22-2021 Erythrocyte distribution width (RBC) [Entitic vol] 54.1 fL 35.1-43.9 [facility] Work Phone: [phone] Erythrocyte distribution width (RBC) [Ratio] 16.0 % 11.6-14.6 [facility] Work Phone: [phone] Immature granulocytes/100 WBC (Bld) 1.500 % 0.0-0.9 [facility] Work Phone: [phone] Comment on above: IG% - Immature Granu locytes (promyelocytes, myelocytes and metamyelocytes) > 1% indicates that a LEFT SHIFT is Present. MCH (RBC) [Entitic mass] 29.7 pg 27.0-32.0 [facility] Work Phone: [phone] Nucleated RBC/100 WBC (Bld) [Ratio] 0 % 0-5 [facility] Work Phone: [phone] MCHC Auto (RBC) [Mass/Vol]on 08-22-2021 MCHC (RBC) [Mass/Vol] 32.3 g/dL 32-36 [facility] Work Phone: [phone] Panel Informationon 08-22 Estimated Creatinine Clearance Calc 85.49 ml/min [facility] Work Phone: [phone] Estimated GFR (MDRD) Amer 116 mL/min >60 [facility] Work Phone: [phone] Comment on above: GFR Calc Estimated GFR (MDRD) Non-Af Amer 96 mL/min >60 [facility] Work Phone: [phone] Comment on above: Non- GFR Calc Platelets bldon 08-22-2021 Platelets (Bld) [#/Vol] 283 10*3/uL 150-450 [facility] Work Phone: [phone] Serum or plasma calcium jerome urement (mass/volume)on 08-22-2021 Calcium [Mass/Vol] 8.9 mg/dL 8.5-10.1 [facility] Work Phone: [phone] Serum or plasma creatinine m easurement (mass/volume)on 08-22-2021 Creatinine [Mass/Vol] 0.85 mg/dL 0.70-1.30 [facility] Work Phone: [phone] Comment on above: The validity of the calculated GFR & GFRAA in patients over 70 years has not been determined. Clinical correlation is essential. Serum or plasma urea nitroge n measurement (mass/volume)on 08-22-2021 Urea nitrogen [Mass/Vol] 16 mg/dL 02-19 [facility] Work Phone: [phone] Thin prep Papanicolaou smear with manual screeningon 08-22-2021 Thin prep Papanicolaou smear with manual screening 5 - [facility] Work Phone: [phone] Lower GI hemoglobin IA Ql (S tl)on 08-19-2021 Stool Occult Blood (KATARINA) Positive [facility] Work Phone: [phone] Basophil percentageon 2021 Bilirubin [Mass/Vol] 0.60 mg/dL 0.20-1.00 [facility] Work Phone: [phone] Comment on above: For patients on eltr ombopag therapy, use of Dimension [place] TBIL is not recommended. Cholesterol [Mass/Vol] 109 mg/dL <200 [facility] Work Phone: [phone] Comment on above: <200 mg/dL Desirable 200-240 mg/dL Borderline >240 mg/dL High Risk Protein [Mass/Vol] 6.1 g/dL 6.4-8.2 [facility] Work Phone: [phone] Triglyceride [Mass/Vol] 116 mg/dL [facility] Work Phone: [phone] Comment on above: The drugs N-Acetylcy steine and Metamizole may falsely depress this assay.Serum Triglycerides Reference Interval Normal <150 mg/dL Borderline high 150 - 199 mg/dL High 200 - 499 mg/dL Very High > or = 500 mg/dL Laboratory - Chemistry and C hemistry - challengeon 08-17-2021 ALP [Catalytic activity/Vol] 110 U/L 45-117 [facility] Work Phone: ALT [Catalytic activity/Vol] 23 U/L 16-61 [facility] Work Phone: Globulin (S) [Mass/Vol] 3.3 g/dL 2.2-4.2 [facility] Work Phone: [phone] Panel Informationon 08-17 Thyroid Stimulating Hormone (TSH) 2.25 uIU/mL 0.358-3.74 [facility] Work Phone: [phone] Serum or plasma albumin jerome urement (mass/volume)on 08-17-2021 Albumin [Mass/Vol] 2.8 g/dL 3.2-5.0 [facility] Work Phone: [phone] Serum or plasma albumin/glob ulin mass ratioon 08-17-2021 Albumin/Globulin [Mass ratio] 0.8 {ratio} 0.9-2.4 [facility] Work Phone: [phone] Serum or plasma cholesterol in HDL measurement (mass/volume)on 08-17-2021 Cholesterol in HDL [Mass/Vol] 33 mg/dL [facility] Work Phone: Comment on above: The drugs N-Acetylcy steine and Metamizole may falsely depress this assay. Reference Range HDL <40 mg/dL Low HDL Cholesterol HDL >or= 60 mg/dL High HDL Cholesterol Serum or plasma cholesterol in VLDL measurement (mass/volume)on 08-17-2021 Cholesterol in VLDL [Mass/Vol] 23 mg/dL 5-40 [facility] Work Phone: [phone] Serum or plasma low density lipoprotein (LDL) cholesterol measurement (mass/volume)on 08-17-2021 Cholesterol in LDL [Mass/Vol] 53 mg/dL 0-130 [facility] Work Phone: [phone] Thin prep Papanicolaou smear with manual screeningon 08-17-2021 Thin prep Papanicolaou smear with manual screening 12 U/L 15-37 [facility] Work Phone: Whole blood hemoglobin A1c/t otal hemoglobin ratio (mass fraction)on 08-17-2021 HbA1c (Bld) [Mass fraction] 5.2 % 3.8-5.6 [facility] Work Phone: Comment on above: Normal < 5.7 % Predi abetic 5.7 - 6.4 % Diabetic >or= 6.5 % Please note range changes. Basophil percentageon 2021 Basophil percentage 0-5 SEEN /hpf [facility] Work Phone: Bilirubin Test strip Ql (U)o n 08-16-2021 Bilirubin Ql (U) Negative Negative [facility] Work Phone: Glucose Glucometer (BldC) [M ass/Vol]on 08-16-2021 Glucose [Mass/Vol] 106 mg/dL 70-110 [facility] Work Phone: Comment on above: MANAGEMENT OF PATIEN T CARE PER NURSING PROTOCOL Hyaline casts LM.LPF (Urine sed) [#/Area]on 08-16-2021 Hyaline casts (Urine sed) [#/Area] 5 /[LPF] [facility] Work Phone: INR in Blood by Coagulation assayon 08-16-2021 INR Coag (Bld) [Relative time] 1.2 {INR} [facility] Work Phone: Ketones Test strip Ql (U)on 08-16-2021 Ketones Ql (U) Negative Negative [facility] Work Phone: Laboratory - Chemistry and C hemistry - challengeon 08-16-2021 Magnesium [Mass/Vol] 2.4 mg/dL 1.6-2.6 [facility] Work Phone: Laboratory - Coagulationon 0 08-16-2021 aPTT Coag (Bld) [Time] 35.0 s 24.1-36.2 [facility] Work Phone: PT Coag (PPP) [Time] 14.5 s 11.7-14.9 [facility] Work Phone: Mucus LM Ql (Urine sed)on Mucus Ql (Urine sed) 0 SEEN /hpf [facility] Work Phone: Nitrite Test strip Ql (U)on 08-16-2021 Nitrite Ql (U) Negative Negative [facility] Work Phone: No Panel Informationon 08-16 Troponin I High Sensitivity 9 pg/mL 3.0-78.0 [facility] Work Phone: Comment on above: Please Note: New Deja t Units and Gender Specific Reference Ranges. For more information see Policy Stat Procedure [place] High Sensitivity Troponin (TNIH) and attachments. Protein Test strip Ql (U)on 08-16-2021 Protein Ql (U) 30 mg/dl Negative [facility] Work Phone: Squamous epithelial cells de tection in urine sediment by light microscopyon 08-16-2021 Epithelial cells.squamous LM Ql (Urine sed) 0 SEEN /hpf [facility] Work Phone: Urine blood detectionon 08-05 RBC Ql (U) Negative Negative [facility] Work Phone: RBC Ql (U) 0 SEEN /hpf [facility] Work Phone: Urine clarityon 08-16-2021 Clarity (U) Clear Clear [facility] Work Phone: Urine color determinationon 08-16-2021 Color (U) Yellow Yellow [facility] Work Phone: Urine glucose detectionon Glucose Ql (U) Normal mg/dl Normal [facility] Work Phone: Urine leukocyte esterase det ection by dipstickon 08-16-2021 Leukocyte esterase Test strip Ql (U) 25 /ul Negative [facility] Work Phone: Urine pHon 08-16-2021 pH (U) 6.5 [pH] [facility] Work Phone: [phone] Urine sediment bacteria coun t by microscopy (number/high power field)on 08-16-2021 Bacteria LM.HPF (Urine sed) [#/Area] 0 /[HPF] None Seen [facility] Work Phone: Urine specific gravity measu rementon 08-16-2021 Specific gravity (U) [Rel density] 1.015 [facility] Work Phone: Urobilinogen Auto test strip Ql (U)on 08-16-2021 Urobilinogen Ql (U) 1 mg/dl Normal [facility] Work Phone: Basic Panelon 12-03-2017 Creatinine mass conc 1.05 mg/dL Normal 0.67-1.17 [facility] Comment on above: Performed By: #### P 8 #### [facility] [address] [address] Urea nitrogen mass conc 18 mg/dL Normal 7-18 [facility] Comment on above: Performed By: #### P 8 #### [facility] [address] [address] Anion gap molar conc 12 mmol/L Normal 8-16 [facility] Comment on above: Performed By: #### P 8 #### [facility] [address] [address] Calcium mass conc 9.0 mg/dL Normal 8.5-10.1 [facility] Comment on above: Performed By: #### P 8 #### [facility] [address] [address] CO2 molar conc 25 mmol/L Normal 21-32 [facility] Comment on above: Performed By: #### P 8 #### [facility] [address] [address] Glucose mass conc 89 mg/dL Normal 70-99 [facility] Comment on above: Performed By: #### P 8 #### [facility] [address] [address] Chloride molar conc 110 mmol/L High 98-107 [facility] Comment on above: Performed By: #### P 8 #### [place] [address] Potassium molar conc 4.3 mmol/L Normal 3.5-5.1 [facility] Comment on above: Performed By: #### P 8 #### [facility] [address] [address] Sodium molar conc 143 mmol/L Normal 136-145 [facility] Comment on above: Performed By: #### P 8 #### [facility] [address] [address] Hemogramon 12-03-2017 Erythrocyte distribution width Ratio (RBC) 13.5 % Normal 11.6-14.4 [facility] Comment on above: Performed By: #### C BC1 #### [facility] [address] [address] Hematocrit Volume Fraction (Bld) 38.3 % Low 40.1-51.0 [facility] Comment on above: Performed By: #### C BC1 #### [place] [address] Hemoglobin mass conc (Bld) 12.2 g/dL Low 13.7-17.5 [facility] Comment on above: Performed By: #### C BC1 #### [facility] [address] [address] MCH Entitic mass (RBC) 27.6 pg Normal 25.7-32.2 [facility] Comment on above: Performed By: #### C BC1 #### [place] [address] MCHC mass conc (RBC) 31.9 % Low 32.3-36.5 [facility] Comment on above: Performed By: #### C BC1 #### [facility] [address] [address] MCV Entitic volume (RBC) 86.7 fL Normal 83.2-95.6 [facility] Comment on above: Performed By: #### C BC1 #### [facility] [address] [address] Platelet mean volume Entitic volume (Bld) 11.0 fL Normal 8.7-12.0 [facility] Comment on above: Performed By: #### C BC1 #### [facility] [address] [place] [address] Platelets #/vol (Bld) 319 thou/cmm Normal 141-365 [facility] [place] Comment on above: Performed By: #### C BC1 #### [facility] [address] [place] [address] RBC #/vol (Bld) 4.42 mil/cmm Low 4.63-6.08 [facility] Comment on above: Performed By: #### C BC1 #### [facility] [address] [address] RDW SD 42.2 fl Normal 36.1-45.8 [facility] Comment on above: Performed By: #### C BC1 #### [facility] [address] [address] WBC #/vol (Bld) 10.23 thou/cmm High 4.23-9.07 [facility] Comment on above: Performed By: #### C BC1 #### [facility] [address] [place] [address] MDRD GFRon 12-03-2017 GFR/1.73 sq M predicted among non-blacks MDRD vol rate/area (S/P/Bld) mL/min/{1.73_m2} Normal >60mL/min/1 .73m2 [facility] Comment on above: Result Comment: If t he patient is , multiply the result by 1.210. Performed By: #### G FR #### [facility] [address] [address] Protimeon 12-03-2017 INR Coag RelTime (PPP) 0.99 {INR} Normal [facility] Comment on above: Result Comment: Peter dard Therapy 2.0-3.0 High Dose 2.5-3.5 Performed By: #### P T #### [facility] [address] [address] Prothrombin time (PT) Coag time (PPP) 10.5 s Normal 9.3-11.9 [facility] Comment on above: Performed By: #### P T #### [facility] [address] [address] COVID-19 virus antigen assay SARS-CoV-2 (COVID-19) Ag IA.rapid Ql (Resp) [facility] Work Phone: Vital Signs Date Time Vital Sign Value Performing Clinician Facility 03-02-2025 13:00-0400 Diastolic blood pressure 80 mm[Hg] Mariano Karuna NEW GRAD RN.LAUNDRY OPERATOR WASH ROOM Work Phone: [facility] 03-02-2025 13:00-0400 Heart rate 60 /min Mariano Karuna NEW GRAD RN.LAUNDRY OPERATOR [employer] ROOM Work Phone: [facility] 03-02-2025 13:00-0400 Respiratory rate 20 /min Mariano Karuna NEW GRAD RN.LAUNDRY OPERATOR W[employer] ROOM Work Phone: [facility] 03-02-2025 13:00-0400 Systolic blood pressure 142 mm[Hg] Mariano Karuna NEW GRAD RN.LAUNDRY OPERATOR WASH ROOM Work Phone: [facility] 02-01-2025 09:42-0400 Body height 177.8 cm Robin Johansen MD Work Phone: [facility] 02-01-2025 09:42-0400 Body mass index (BMI) [Ratio] 28.41 kg/m2 Robin Johansen MD Work Phone: [facility] 02-01-2025 09:42-0400 Body weight 89.81 kg Robin Johansen MD Work Phone: [facility] Comment on above: home weight 02-01-2025 09:42-0400 Diastolic blood pressure 80 mm[Hg] Robin Johansen MD Work Phone: [facility] 02-01-2025 09:42-0400 Heart rate 43 /min Robin Johansen MD Work Phone: [facility] 02-01-2025 09:42-0400 Respiratory rate 16 /min Robin Johansen MD Work Phone: [facility] 02-01-2025 09:42-0400 SaO2% (BldA) [Mass fraction] 94 % Robin Johansen MD Work Phone: [facility] 02-01-2025 09:42-0400 Systolic blood pressure 122 mm[Hg] Robin Johansen MD Work Phone: [facility] 01-14-2025 14:01-0400 Body mass index (BMI) [Ratio] 27.55 kg/m2 Jaci Arroyo MD Work Phone: [facility] 01-14-2025 14:01-0400 Body weight 87.1 kg Jaci Arroyo MD Work Phone: [facility] 01-14-2025 14:01-0400 Diastolic blood pressure 74 mm[Hg] Jaci Arroyo MD Work Phone: [facility] 01-14-2025 14:01-0400 Heart rate 52 /min Jaci Arroyo MD Work Phone: [facility] 01-14-2025 14:01-0400 Respiratory rate 18 /min Jaci Arroyo MD Work Phone: [facility] 01-14-2025 14:01-0400 SaO2% (BldA) [Mass fraction] 95 % Jaci Arroyo MD Work Phone: [facility] 01-14-2025 14:01-0400 Systolic blood pressure 124 mm[Hg] Jaci Arroyo MD Work Phone: [facility] 12-03-2024 12:46-0400 Body mass index (BMI) [Ratio] 27.98 kg/m2 Consuelo Farooq APRN.LAUNDRY OPERATOR WASH ROOM Work Phone: [facility] 12-03-2024 12:46-0400 Body weight 88.45 kg Consuelo Farooq APRN.LAUNDRY OPERATOR [employer] ROOM Work Phone: [facility] 12-03-2024 12:46-0400 Diastolic blood pressure 54 mm[Hg] Consuelo Farooq APRN.LAUNDRY OPERATOR [employer] ROOM Work Phone: [facility] 12-03-2024 12:46-0400 Heart rate 59 /min Consuelo Farooq APRN.LAUNDRY OPERATOR [employer]ASH ROOM Work Phone: [facility] 12-03-2024 12:46-0400 SaO2% (BldA) [Mass fraction] 90 % Consuelo Farooq NEW GRAD RN.LAUNDRY OPERATOR WASH ROOM Work Phone: [facility] 12-03-2024 12:46-0400 Systolic blood pressure 121 mm[Hg] Consuelo Farooq NEW GRAD RN.LAUNDRY OPERATOR W[employer] ROOM Work Phone: [facility] 11-10-2024 16:14-0400 Diastolic blood pressure 67 mm[Hg] Deanne Cruz DO Work Phone: [facility] 11-10-2024 16:14-0400 Heart rate 50 /min Deanne Cruz DO Work Phone: [facility] 11-10-2024 16:14-0400 SaO2% (BldA) [Mass fraction] 92 % Deanne Cruz DO Work Phone: [facility] 11-10-2024 16:14-0400 Systolic blood pressure 121 mm[Hg] Deanne Cruz DO Work Phone: [facility] 10-07-2024 15:13-0500 Diastolic blood pressure 60 mm[Hg] Jessie Reyesf NEW GRAD RN.LAUNDRY OPERATOR W[employer] ROOM Work Phone: [facility] 10-07-2024 15:13-0500 Heart rate 48 /min Jessie Harmon NEW GRAD RN.LAUNDRY OPERATOR W[employer] ROOM Work Phone: [facility] 10-07-2024 15:13-0500 Respiratory rate 16 /min Jessie Raphaelhof NEW GRAD RN.LAUNDRY OPERATOR W[employer] ROOM Work Phone: [facility] 10-07-2024 15:13-0500 SaO2% (BldA) [Mass fraction] 93 % Jessie Harmon NEW GRAD RN.LAUNDRY OPERATOR WASH ROOM Work Phone: [facility] 10-07-2024 15:13-0500 Systolic blood pressure 130 mm[Hg] Jessie Reyesf NEW GRAD RN.LAUNDRY OPERATOR [employer] ROOM Work Phone: [facility] 10-06-2024 13:36-0500 Body mass index (BMI) [Ratio] 27.84 kg/m2 Earl Click NEW GRAD RN.LAUNDRY OPERATOR WASH ROOM Work Phone: [facility] 10-06-2024 13:36-0500 Body weight 88 kg Earl Click NEW GRAD RN.LAUNDRY OPERATOR W[employer] ROOM Work Phone: [facility] 10-06-2024 13:36-0500 Diastolic blood pressure 66 mm[Hg] Earl Click NEW GRAD RN.LAUNDRY OPERATOR WASH ROOM Work Phone: [facility] 10-06-2024 13:36-0500 Heart rate 49 /min Earl Click NEW GRAD RN.LAUNDRY OPERATOR WASH ROOM Work Phone: [facility] 10-06-2024 13:36-0500 SaO2% (BldA) [Mass fraction] 90 % Earl Click NEW GRAD RN.LAUNDRY OPERATOR WASH ROOM Work Phone: [facility] 10-06-2024 13:36-0500 Systolic blood pressure 105 mm[Hg] Earl Click NEW GRAD RN.LAUNDRY OPERATOR WASH ROOM Work Phone: [facility] 09-18-2024 11:59-0500 Body temperature 97.88 [degF] RICARDO MARIE NEW GRAD RN-LAUNDRY OPERATOR WASH ROOM [facility] 09-18-2024 11:59-0500 Diastolic Blood Pressure Non-Invasive 64 mm[Hg] RICARDO MARIE NEW GRAD RN-LAUNDRY OPERATOR WASH ROOM [facility] 09-18-2024 11:59-0500 Heart rate 74 /min RICARDO MARIE NEW GRAD RN-LAUNDRY OPERATOR WASH ROOM [facility] 09-18-2024 11:59-0500 Reason For Taking VItal Signs RICARDO MARIE NEW GRAD RN-LAUNDRY OPERATOR WASH ROOM [facility] 09-18-2024 11:59-0500 Respiratory rate 18 /min RICARDO MARIE NEW GRAD RN-LAUNDRY OPERATOR WASH ROOM [facility] 09-18-2024 11:59-0500 Systolic Blood Pressure Non-Invasive 155 mm[Hg] RICARDO MARIE NEW GRAD RN-LAUNDRY OPERATOR WASH ROOM [facility] 09-18-2024 06:38-0500 Body temperature 98.06 [degF] RICARDO KAPPER NEW GRAD RN-LAUNDRY OPERATOR WASH ROOM [facility] 09-18-2024 06:38-0500 Diastolic Blood Pressure Non-Invasive 63 mm[Hg] RICARDO KAPPER NEW GRAD RN-LAUNDRY OPERATOR WASH ROOM [facility] 09-18-2024 06:38-0500 Heart rate 60 /min RICARDO KAPPER NEW GRAD RN-LAUNDRY OPERATOR WASH ROOM [facility] 09-18-2024 06:38-0500 Reason For Taking VItal Signs RICARDOZay MARIE NEW GRAD RN-LAUNDRY OPERATOR WASH ROOM [facility] 09-18-2024 06:38-0500 Respiratory rate 18 /min RICARDO KAPPER NEW GRAD RN-LAUNDRY OPERATOR WASH ROOM [facility] 09-18-2024 06:38-0500 Systolic Blood Pressure Non-Invasive 118 mm[Hg] RICARDO KAPPER NEW GRAD RN-LAUNDRY OPERATOR WASH ROOM [facility] 09-18-2024 04:00-0500 Body temperature 97.52 [degF] RICARDO KAPPER NEW GRAD RN-LAUNDRY OPERATOR WASH ROOM [facility] 09-18-2024 04:00-0500 Diastolic Blood Pressure Non-Invasive 71 mm[Hg] RICARDO LATANYAER NEW GRAD RN-LAUNDRY OPERATOR WASH ROOM [facility] 09-18-2024 04:00-0500 Heart rate 89 /min RICARDO KAPPER NEW GRAD RN-LAUNDRY OPERATOR WASH ROOM [facility] 09-18-2024 04:00-0500 Systolic Blood Pressure Non-Invasive 134 mm[Hg] RICARDO KAPPER NEW GRAD RN-LAUNDRY OPERATOR WASH ROOM [facility] 09-17-2024 03:15-0500 Heart rate 74 /min RICARDO KAPPER NEW GRAD RN-LAUNDRY OPERATOR WASH ROOM [facility] 09-16-2024 23:32-0500 Heart rate 54 /min RICARDO KAPPER NEW GRAD RN-LAUNDRY OPERATOR WASH ROOM [facility] 09-16-2024 18:53-0500 Heart rate 72 /min RICARDO KAPPER NEW GRAD RN-LAUNDRY OPERATOR WASH ROOM [facility] 09-16-2024 18:15-0500 Heart rate 67 /min RICARDO KAPPER NEW GRAD RN-LAUNDRY OPERATOR WASH ROOM [facility] 09-15-2024 20:15-0500 Body height 177.8 cm RICARDO KAPPER NEW GRAD RN-LAUNDRY OPERATOR WASH ROOM [facility] 09-15-2024 20:15-0500 Body weight 89.5 kg RICARDO KAPPER NEW GRAD RN-LAUNDRY OPERATOR WASH ROOM [facility] 09-15-2024 20:15-0500 Body weight 28.31 kg/m2 RICARDO KAPPER NEW GRAD RN-LAUNDRY OPERATOR WASH ROOM [facility] 09-15-2024 16:52-0500 Blood Pressure Location RICARDO KAPPER NEW GRAD RN-LAUNDRY OPERATOR WASH ROOM [facility] 09-15-2024 16:52-0500 Blood Pressure Method RICARDO KAPPER NEW GRAD RN-LAUNDRY OPERATOR WASH ROOM [facility] 09-15-2024 14:15-0500 Blood Pressure Location RICARDO KAPPER NEW GRAD RN-LAUNDRY OPERATOR WASH ROOM [facility] 09-15-2024 14:15-0500 Blood Pressure Method RICARDO KAPPER NEW GRAD RN-LAUNDRY OPERATOR WASH ROOM [facility] 09-15-2024 14:15-0500 Body height 177.8 cm RICARDO KAPPER NEW GRAD RN-LAUNDRY OPERATOR WASH ROOM [facility] 09-15-2024 14:15-0500 Body weight 86.4 kg RICARDO MARIE NEW GRAD RN-LAUNDRY OPERATOR WASH ROOM [facility] 09-03-2024 13:55-0500 Body height 177.8 cm Joycelyn Woodruff MD Work Phone: [facility] 09-03-2024 13:55-0500 Body mass index (BMI) [Ratio] 26.69 kg/m2 Joycelyn Woodruff MD Work Phone: [facility] 09-03-2024 13:55-0500 Body weight 84.37 kg Joycelyn Woodruff MD Work Phone: [facility] 09-03-2024 13:55-0500 Diastolic blood pressure 64 mm[Hg] Joycelyn Woodruff MD Work Phone: [facility] 09-03-2024 13:55-0500 Heart rate 55 /min Joycelyn Woodruff MD Work Phone: [facility] 09-03-2024 13:55-0500 SaO2% (BldA) [Mass fraction] 92 % Joycelyn Woodruff MD Work Phone: [facility] 09-03-2024 13:55-0500 Systolic blood pressure 128 mm[Hg] Joycelyn Woodruff MD Work Phone: [facility] 07-22-2024 11:39-0500 Body mass index (BMI) [Ratio] 26.69 kg/m2 Michelle Webb PA-C Work Phone: [facility] 07-22-2024 11:39-0500 Body weight 84.37 kg Michelle Webb PA-C Work Phone: [facility] 07-22-2024 11:39-0500 Diastolic blood pressure 76 mm[Hg] Michelle Webb PA-C Work Phone: [facility] 07-22-2024 11:39-0500 Heart rate 50 /min Michelle Webb PA-C Work Phone: [facility] 07-22-2024 11:39-0500 SaO2% (BldA) [Mass fraction] 100 % Michelle TIDWELL-C Work Phone: [facility] 07-22-2024 11:39-0500 Systolic blood pressure 131 mm[Hg] Michelle Webb PA-C Work Phone: [facility] 07-13-2024 13:42-0500 Body height 177.8 cm Jessie Tannhof NEW GRAD RN.LAUNDRY OPERATOR WASH ROOM Work Phone: [facility] 07-13-2024 13:42-0500 Body mass index (BMI) [Ratio] 26.69 kg/m2 Jessie Tannhof NEW GRAD RN.LAUNDRY OPERATOR WASH ROOM Work Phone: [facility] 07-13-2024 13:42-0500 Body weight 84.37 kg Jessie Tannhof NEW GRAD RN.LAUNDRY OPERATOR WASH ROOM Work Phone: [facility] 07-13-2024 13:42-0500 Diastolic blood pressure 69 mm[Hg] Jessie Tannhof NEW GRAD RN.LAUNDRY OPERATOR WASH ROOM Work Phone: [facility] 07-13-2024 13:42-0500 Heart rate 48 /min Jessie Tannhof NEW GRAD RN.LAUNDRY OPERATOR WASH ROOM Work Phone: [facility] 07-13-2024 13:42-0500 Systolic blood pressure 121 mm[Hg] Jessie Tannhof NEW GRAD RN.LAUNDRY OPERATOR WASH ROOM Work Phone: [facility] 07-01-2024 10:16-0500 Body height 177.8 cm Jessie Tannhof NEW GRAD RN.LAUNDRY OPERATOR WASH ROOM Work Phone: [facility] 07-01-2024 10:16-0500 Diastolic blood pressure 62 mm[Hg] Jessie Tannhof NEW GRAD RN.LAUNDRY OPERATOR WASH ROOM Work Phone: [facility] 07-01-2024 10:16-0500 Heart rate 77 /min Ejssie Tannhof NEW GRAD RN.LAUNDRY OPERATOR WASH ROOM Work Phone: [facility] 07-01-2024 10:16-0500 Respiratory rate 12 /min Jessie Tannhof NEW GRAD RN.LAUNDRY OPERATOR WASH ROOM Work Phone: [facility] 07-01-2024 10:16-0500 SaO2% (BldA) [Mass fraction] 97 % Jessie Bria NEW GRAD RN.LAUNDRY OPERATOR WASH ROOM Work Phone: [facility] 07-01-2024 10:16-0500 Systolic blood pressure 110 mm[Hg] Jessie Raphaelparadise NEW GRAD RN.LAUNDRY OPERATOR WASH ROOM Work Phone: [facility] 05-20-2024 09:28-0400 Body mass index (BMI) [Ratio] 26.59 kg/m2 Michelle Queener PA-C Work Phone: [facility] 05-20-2024 09:28-0400 Body weight 84.05 kg Michelle Queener PA-C Work Phone: [facility] 05-20-2024 09:28-0400 Diastolic blood pressure 77 mm[Hg] Michelle Queener PA-C Work Phone: [facility] 05-20-2024 09:28-0400 Heart rate 54 /min Michelle Queener PA-C Work Phone: [facility] 05-20-2024 09:28-0400 Respiratory rate 18 /min Michelle Queener PA-C Work Phone: [facility] 05-20-2024 09:28-0400 SaO2% (BldA) [Mass fraction] 93 % Michelle Queener PA-C Work Phone: [facility] 05-20-2024 09:28-0400 Systolic blood pressure 126 mm[Hg] Michelle Queener PA-C Work Phone: [facility] 04-03-2024 16:01-0400 Body mass index (BMI) [Ratio] 26.57 kg/m2 Jaci Arroyo MD Work Phone: [facility] 04-03-2024 16:01-0400 Body weight 84 kg Jaci Arroyo MD Work Phone: [facility] 04-03-2024 16:01-0400 Diastolic blood pressure 70 mm[Hg] Jaci Arroyo MD Work Phone: [facility] 04-03-2024 16:01-0400 Heart rate 68 /min Jaci Arroyo MD Work Phone: [facility] 04-03-2024 16:01-0400 Respiratory rate 16 /min Jaci Arroyo MD Work Phone: [facility] 04-03-2024 16:01-0400 Systolic blood pressure 120 mm[Hg] Jaci Arroyo MD Work Phone: [facility] 03-09-2024 15:33-0400 Diastolic blood pressure 60 mm[Hg] Dania Aj Jr., MD Work Phone: [facility] 03-09-2024 15:33-0400 Heart rate 54 /min Dania Aj Jr., MD Work Phone: [facility] 03-09-2024 15:33-0400 Respiratory rate 18 /min Dania Aj Jr., MD Work Phone: [facility] 03-09-2024 15:33-0400 SaO2% (BldA) [Mass fraction] 96 % Dania Aj Jr., MD Work Phone: [facility] 03-09-2024 15:33-0400 Systolic blood pressure 142 mm[Hg] Dania Aj Jr., MD Work Phone: [facility] 03-02-2024 14:40-0400 Diastolic blood pressure 69 mm[Hg] Robin Johansen MD Work Phone: [facility] 03-02-2024 14:40-0400 Heart rate 49 /min Robin Johansen MD Work Phone: [facility] 03-02-2024 14:40-0400 SaO2% (BldA) [Mass fraction] 95 % Robin Johansen MD Work Phone: [facility] 03-02-2024 14:40-0400 Systolic blood pressure 131 mm[Hg] Robin Johansen MD Work Phone: [facility] 02-24-2024 15:50-0400 Body height 177.8 cm Lacy Lai MD Work Phone: [facility] 02-24-2024 15:50-0400 Body mass index (BMI) [Ratio] 26.4 kg/m2 Lacy Lai MD Work Phone: [facility] 02-24-2024 15:50-0400 Body temperature 97.3 [degF] Lacy Lai MD Work Phone: [facility] 02-24-2024 15:50-0400 Body weight 83.46 kg Lacy Lai MD Work Phone: [facility] 02-24-2024 15:50-0400 Diastolic blood pressure 62 mm[Hg] Lacy Lai MD Work Phone: [facility] 02-24-2024 15:50-0400 Heart rate 62 /min Lacy Lai MD Work Phone: [facility] 02-24-2024 15:50-0400 Respiratory rate 22 /min Lacy Lai MD Work Phone: [facility] 02-24-2024 15:50-0400 SaO2% (BldA) [Mass fraction] 95 % Lacy Lai MD Work Phone: [facility] 02-24-2024 15:50-0400 Systolic blood pressure 112 mm[Hg] Lacy Lai MD Work Phone: [facility] 12-31-2023 14:36-0400 Body mass index (BMI) [Ratio] 27.73 kg/m2 Jcai Arroyo MD Work Phone: [facility] 12-31-2023 14:36-0400 Body weight 85.19 kg Jaci Arroyo MD Work Phone: [facility] 12-31-2023 14:36-0400 Diastolic blood pressure 68 mm[Hg] Jaci Arroyo MD Work Phone: [facility] 12-31-2023 14:36-0400 Heart rate 62 /min Jaci Arroyo MD Work Phone: [facility] 12-31-2023 14:36-0400 Respiratory rate 18 /min Jaci Arroyo MD Work Phone: [facility] 12-31-2023 14:36-0400 Systolic blood pressure 116 mm[Hg] Jaci Arroyo MD Work Phone: [facility] 12-16-2023 15:13-0400 Body mass index (BMI) [Ratio] 27.75 kg/m2 Dena Hortensia NEW GRAD RN.LAUNDRY OPERATOR WASH ROOM Work Phone: [facility] 12-16-2023 15:13-0400 Body weight 85.23 kg Dena Hortensia NEW GRAD RN.LAUNDRY OPERATOR WASH ROOM Work Phone: [facility] 12-16-2023 15:13-0400 Diastolic blood pressure 58 mm[Hg] Dena Hortensia NEW GRAD RN.LAUNDRY OPERATOR WASH ROOM Work Phone: [facility] 12-16-2023 15:13-0400 Heart rate 45 /min Dena Hortensia NEW GRAD RN.LAUNDRY OPERATOR WASH ROOM Work Phone: [facility] 12-16-2023 15:13-0400 Respiratory rate 18 /min Dena Hortensia NEW GRAD RN.LAUNDRY OPERATOR WASH ROOM Work Phone: [facility] 12-16-2023 15:13-0400 SaO2% (BldA) [Mass fraction] 95 % Dena Hortensia NEW GRAD RN.LAUNDRY OPERATOR WASH ROOM Work Phone: [facility] 12-16-2023 15:13-0400 Systolic blood pressure 127 mm[Hg] Dena Hortensia NEW GRAD RN.LAUNDRY OPERATOR WASH ROOM Work Phone: [facility] 10-01-2023 16:06-0500 Diastolic blood pressure 55 mm[Hg] Deanne Cruz DO Work Phone: [facility] 10-01-2023 16:06-0500 Heart rate 56 /min Deanne Cruz DO Work Phone: [facility] 10-01-2023 16:06-0500 SaO2% (BldA) [Mass fraction] 93 % Deanne Cruz DO Work Phone: [facility] 10-01-2023 16:06-0500 Systolic blood pressure 121 mm[Hg] Deanne Cruz DO Work Phone: [facility] 09-27-2023 14:18-0500 Body weight 85.09 kg Jaci Arroyo MD Work Phone: [facility] 09-27-2023 14:18-0500 Diastolic blood pressure 68 mm[Hg] Jaci Arroyo MD Work Phone: [facility] 09-27-2023 14:18-0500 Heart rate 70 /min Jaci Arroyo MD Work Phone: [facility] 09-27-2023 14:18-0500 Respiratory rate 18 /min Jaci Arroyo MD Work Phone: [facility] 09-27-2023 14:18-0500 Systolic blood pressure 112 mm[Hg] Jaci Arroyo MD Work Phone: [facility] 08-09-2023 20:51-0500 Body temperature 98.8 [degF] Dr. Jaci Arroyo Work Phone: [facility] 08-09-2023 20:51-0500 Diastolic blood pressure 50 mm[Hg] Dr. Jaci Arroyo Work Phone: [facility] 08-09-2023 20:51-0500 Heart rate 80 /min Dr. Jaci Arroyo Work Phone: [facility] 08-09-2023 20:51-0500 Inhaled oxygen flow rate 2 L/min Dr. Jaci Arroyo Work Phone: [facility] 08-09-2023 20:51-0500 Respiratory rate 20 /min Dr. Jaci Arroyo Work Phone: [facility] 08-09-2023 20:51-0500 SaO2% (BldA) [Mass fraction] 96 % Dr. Jaci Arroyo Work Phone: [facility] 08-09-2023 20:51-0500 Systolic blood pressure 151 mm[Hg] Dr. Jaci Arroyo Work Phone: [facility] 08-07-2023 14:17-0500 Body height 177.[address] Jaci Arroyo Work Phone: [facility] 08-07-2023 14:17-0500 Body mass index (BMI) [Ratio] 27.1 kg/m2 Dr. Jaci Arroyo Work Phone: [facility] 08-07-2023 14:17-0500 Body weight 85.[address] Jaci Arroyo Work Phone: [facility] 07-26-2023 11:50-0500 Body height 177.8 cm MATTHEW AVALOS MD [facility] 07-26-2023 11:50-0500 Body temperature 98.42 [degF] MATTHEW AVALOS MD [facility] 07-26-2023 11:50-0500 Body weight 86.4 kg MATTHEW AVALOS MD [facility] 07-26-2023 11:50-0500 Diastolic Blood Pressure Non-Invasive 60 mm[Hg] MATTHEW AVALOS MD [facility] 07-26-2023 11:50-0500 Heart rate 52 /min MATTHEW AVALOS MD [facility] 07-26-2023 11:50-0500 Respiratory rate 18 /min MATTHEW AVALOS MD [facility] 07-26-2023 11:50-0500 Systolic Blood Pressure Non-Invasive 153 mm[Hg] MATTHEW AVALOS MD [facility] 07-15-2023 10:16-0500 Body height 175.3 cm Pac 8 Work Phone: [facility] 07-15-2023 10:16-0500 Body temperature 97.5 [degF] Pac 8 Work Phone: [facility] 07-15-2023 10:16-0500 Body weight 86.64 kg Pac 8 Work Phone: [facility] 07-15-2023 10:16-0500 Diastolic blood pressure 53 mm[Hg] Pac 8 Work Phone: [facility] 07-15-2023 10:16-0500 Heart rate 50 /min [facility] 8 Work Phone: [facility] 07-15-2023 10:16-0500 SaO2% (BldA) [Mass fraction] 95 % [facility] 8 Work Phone: [facility] 07-15-2023 10:16-0500 Systolic blood pressure 121 mm[Hg] [facility] 8 Work Phone: [facility] 07-08-2023 11:02-0500 Body weight 84.37 kg Robin Johansen MD Work Phone: [facility] 07-08-2023 11:02-0500 Diastolic blood pressure 63 mm[Hg] Robin Johansen MD Work Phone: [facility] 07-08-2023 11:02-0500 Heart rate 49 /min Robin Johansen MD Work Phone: [facility] 07-08-2023 11:02-0500 SaO2% (BldA) [Mass fraction] 93 % Robin Johansen MD Work Phone: [facility] 07-08-2023 11:02-0500 Systolic blood pressure 116 mm[Hg] Robin Johansen MD Work Phone: [facility] 06-19-2023 14:13-0500 Body height 177.8 cm SANTI Sandoval MD Work Phone: [facility] 06-19-2023 14:13-0500 Body temperature 97.9 [degF] SANTI Sandoval MD Work Phone: [facility] 06-19-2023 14:13-0500 Diastolic blood pressure 52 mm[Hg] SANTI Sandoval MD Work Phone: [facility] 06-19-2023 14:13-0500 Heart rate 57 /min SANTI Sandoval MD Work Phone: [facility] 06-19-2023 14:13-0500 SaO2% (BldA) [Mass fraction] 97 % SANTI Sandoval MD Work Phone: [facility] 06-19-2023 14:13-0500 Systolic blood pressure 148 mm[Hg] SANTI Sandoval MD Work Phone: [facility] 06-18-2023 15:14-0500 Diastolic blood pressure 65 mm[Hg] Deanne Cruz DO Work Phone: [facility] 06-18-2023 15:14-0500 Heart rate 50 /min Deanne Cruz DO Work Phone: [facility] 06-18-2023 15:14-0500 SaO2% (BldA) [Mass fraction] 95 % Deanne Cruz DO Work Phone: [facility] 06-18-2023 15:14-0500 Systolic blood pressure 119 mm[Hg] Deanne Cruz DO Work Phone: [facility] 06-11-2023 15:04-0500 Body weight 85.73 kg Jaci Arroyo MD Work Phone: [facility] 06-11-2023 15:04-0500 Diastolic blood pressure 66 mm[Hg] Jaci Arroyo MD Work Phone: [facility] 06-11-2023 15:04-0500 Heart rate 60 /min Jaci Arroyo MD Work Phone: [facility] 06-11-2023 15:04-0500 Respiratory rate 16 /min Jaci Arroyo MD Work Phone: [facility] 06-11-2023 15:04-0500 Systolic blood pressure 116 mm[Hg] Jaci Arroyo MD Work Phone: [facility] 05-29-2023 06:07-0400 Body mass index (BMI) [Ratio] 26.5 kg/m2 Dr. Jaci Arroyo Work Phone: [facility] 05-29-2023 06:07-0400 Body temperature 97.2 [degF] Dr. Jaci Arroyo Work Phone: [facility] 05-29-2023 06:07-0400 Body weight 83.[address] Jaci Arroyo Work Phone: [facility] 05-29-2023 06:07-0400 Diastolic blood pressure 68 mm[Hg] Dr. Jaci Arroyo Work Phone: [facility] 05-29-2023 06:07-0400 Heart rate 56 /min Dr. Jaci Arroyo Work Phone: [facility] 05-29-2023 06:07-0400 Respiratory rate 20 /min Dr. Jaci Arroyo Work Phone: [facility] 05-29-2023 06:07-0400 SaO2% (BldA) [Mass fraction] 97 % Dr. Jaci Arroyo Work Phone: [facility] 05-29-2023 06:07-0400 Systolic blood pressure 112 mm[Hg] Dr. Jaci Arroyo Work Phone: [facility] 05-21-2023 16:03-0400 Body height 177.8 cm Jorge Cardoso MD Work Phone: [facility] 05-21-2023 16:03-0400 Body temperature 98.4 [degF] Jorge Cardoso MD Work Phone: [facility] 05-21-2023 16:03-0400 Body weight 80.29 kg Jorge Cardoso MD Work Phone: [facility] 05-21-2023 16:03-0400 Diastolic blood pressure 52 mm[Hg] Jorge Cardoso MD Work Phone: [facility] 05-21-2023 16:03-0400 Heart rate 57 /min Jorge Cardoso MD Work Phone: [facility] 05-21-2023 16:03-0400 SaO2% (BldA) [Mass fraction] 94 % Jorge Cardoso MD Work Phone: [facility] 05-21-2023 16:03-0400 Systolic blood pressure 124 mm[Hg] Jorge Cardoso MD Work Phone: [facility] 04-19-2023 11:45-0400 Body temperature 98.4 [degF] Mariano Karuna NEW GRAD RN.LAUNDRY OPERATOR [employer] Work Phone: [facility] 04-19-2023 11:45-0400 Body weight 76.66 kg Mariano Karuna [employer] GR[employer] RN.LAUNDRY OPERATOR [employer] Work Phone: [facility] 04-19-2023 11:45-0400 Diastolic blood pressure 42 mm[Hg] Mariano Karuna NEW GRAD RN.LAUNDRY OPERATOR [employer] Work Phone: [facility] 04-19-2023 11:45-0400 Heart rate 45 /min Mariano Karuna NEW GRAD RN.LAUNDRY OPERATOR [employer] Work Phone: [facility] 04-19-2023 11:45-0400 Respiratory rate 16 /min Mariano Karuna NEW GRAD RN.LAUNDRY OPERATOR [employer] Work Phone: [facility] 04-19-2023 11:45-0400 SaO2% (BldA) [Mass fraction] 98 % Mariano Karuna NEW GRAD RN.LAUNDRY OPERATOR [employer] Work Phone: [facility] 04-19-2023 11:45-0400 Systolic blood pressure 105 mm[Hg] Mariano Karuna NEW GRAD RN.LAUNDRY OPERATOR [employer] Work Phone: [facility] 04-10-2023 13:30-0400 Diastolic blood pressure 58 mm[Hg] Jorge Cardoso MD Work Phone: [facility] 04-10-2023 13:30-0400 Heart rate 49 /min Jorge Cardoso MD Work Phone: [facility] 04-10-2023 13:30-0400 Respiratory rate 22 /min Jorge Cardoso MD Work Phone: [facility] 04-10-2023 13:30-0400 SaO2% (BldA) [Mass fraction] 94 % Jorge Cardoso MD Work Phone: [facility] 04-10-2023 13:30-0400 Systolic blood pressure 124 mm[Hg] Jorge Cardoso MD Work Phone: [facility] 04-10-2023 13:01-0400 Body temperature 96.8 [degF] Jorge Cardoso MD Work Phone: [facility] 04-05-2023 13:52-0400 Body height 182.9 cm Jorge Cardoso MD Work Phone: [facility] 04-05-2023 13:52-0400 Body temperature 98.91 [degF] Jorge Cardoso MD Work Phone: [facility] 04-05-2023 13:52-0400 Body weight 83.01 kg Jorge Cardoso MD Work Phone: [facility] 04-05-2023 13:52-0400 Diastolic blood pressure 72 mm[Hg] Jorge Cardoso MD Work Phone: [facility] 04-05-2023 13:52-0400 Heart rate 63 /min Jorge Cardoso MD Work Phone: [facility] 04-05-2023 13:52-0400 SaO2% (BldA) [Mass fraction] 96 % Jorge Cardoso MD Work Phone: [facility] 04-05-2023 13:52-0400 Systolic blood pressure 118 mm[Hg] Jorge Cardoso MD Work Phone: [facility] 03-21-2023 17:25-0400 Diastolic Blood Pressure Non-Invasive 46 1 MARIANO HOPKINS MD [facility] 03-21-2023 17:25-0400 Heart rate 69 /min MARIANO HOPKINS MD [facility] 03-21-2023 17:25-0400 Respiratory rate 16 /min MARIANO HOPKINS MD [facility] 03-21-2023 17:25-0400 Systolic Blood Pressure Non-Invasive 111 1 MARIANO HOPKINS MD [facility] 03-21-2023 15:06-0400 Body height 178 cm MARIANO HOPKINS MD [facility] 03-21-2023 15:06-0400 Body weight 84 kg MARIANO HOPKINS MD [facility] 03-21-2023 15:06-0400 Diastolic Blood Pressure Non-Invasive 58 1 MARIANO HOPKINS MD [facility] 03-21-2023 15:06-0400 Heart rate 68 /min MARIANO HOPKINS MD [facility] 03-21-2023 15:06-0400 Respiratory rate 18 /min MARIANO HOPKINS MD [facility] 03-21-2023 15:06-0400 Systolic Blood Pressure Non-Invasive 120 1 MARIANO HOPKINS MD [facility] 03-12-2023 13:36-0400 Body height 172.7 cm Kimo Mcgrath MD Work Phone: [facility] 03-12-2023 13:36-0400 Body weight 83.46 kg Kimo Mcgrath MD Work Phone: [facility] 03-12-2023 13:36-0400 Diastolic blood pressure 60 mm[Hg] Kimo Mcgrath MD Work Phone: [facility] 03-12-2023 13:36-0400 Heart rate 66 /min Kimo Mcgrath MD Work Phone: [facility] 03-12-2023 13:36-0400 Respiratory rate 14 /min Kimo Mcgrath MD Work Phone: [facility] 03-12-2023 13:36-0400 SaO2% (BldA) [Mass fraction] 97 % Kimo Mcgrath MD Work Phone: [facility] 03-12-2023 13:36-0400 Systolic blood pressure 108 mm[Hg] Kimo Mcgrath MD Work Phone: [facility] 03-12-2023 13:20-0400 Body height 172.7 cm Pulm Wstr Work Phone: [facility] 03-12-2023 13:20-0400 Body weight 83.46 kg Pulm Wstr Work Phone: [facility] 03-12-2023 13:20-0400 Heart rate 66 /min Pulm Wstr Work Phone: [facility] 03-12-2023 13:20-0400 Respiratory rate 14 /min Pulm Wstr Work Phone: [facility] 03-12-2023 13:20-0400 SaO2% (BldA) [Mass fraction] 97 % Pulm Wstr Work Phone: [facility] 03-07-2023 15:34-0400 Body weight 83.37 kg Jaci Arroyo MD Work Phone: [facility] 03-07-2023 15:34-0400 Diastolic blood pressure 60 mm[Hg] Jaci Arroyo MD Work Phone: [facility] 03-07-2023 15:34-0400 Heart rate 68 /min Jaci Arroyo MD Work Phone: [facility] 03-07-2023 15:34-0400 Respiratory rate 16 /min Jaci Arroyo MD Work Phone: [facility] 03-07-2023 15:34-0400 Systolic blood pressure 110 mm[Hg] Jaci Arroyo MD Work Phone: [facility] 12-04-2022 16:04-0400 Body weight 78.93 kg Jaci Arroyo MD Work Phone: [facility] 12-04-2022 16:04-0400 Diastolic blood pressure 70 mm[Hg] Jaci Arroyo MD Work Phone: [facility] 12-04-2022 16:04-0400 Heart rate 56 /min Jaci Arroyo MD Work Phone: [facility] 12-04-2022 16:04-0400 Respiratory rate 16 /min Jaci Arroyo MD Work Phone: [facility] 12-04-2022 16:04-0400 SaO2% (BldA) [Mass fraction] 94 % Jaci Arroyo MD Work Phone: [facility] 12-04-2022 16:04-0400 Systolic blood pressure 120 mm[Hg] Jaci Arroyo MD Work Phone: [facility] 11-19-2022 10:44-0400 Diastolic Blood Pressure Non-Invasive 58 1 KYLIE LBUM [employer] GR[employer] RN-[employer]UNDR[employer] OPERATOR [employer] [facility] 11-19-2022 10:44-0400 Heart rate 57 /min KYLIE BLUM [employer] GR[employer] RN-[employer]UNDRY OPERATOR [employer] [facility] 11-19-2022 10:44-0400 Reason For Taking VItal Signs KYLIE BLUM [employer] GR[employer] RN-[employer]UNDR[employer] OPERATOR [employer] [facility] 11-19-2022 10:44-0400 Respiratory rate 18 /min KYLIE BLUM [employer] GR[employer] RN-LAUNDRY OPERATOR [employer] [facility] 11-19-2022 10:44-0400 Systolic Blood Pressure Non-Invasive 118 1 KYLIE BLMU [employer] GR[employer] RN-LAUNDRY OPERATOR [employer] [facility] 11-19-2022 08:36-0400 Heart rate 61 /min KYLIE BLUM [employer] GR[employer] RN-LAUNDRY OPERATOR [employer] [facility] 11-19-2022 07:33-0400 Respiratory rate 18 /min KYLIE BLUM [employer] RN-[employer]UNDRY OPERATOR [employer] [facility] 11-19-2022 06:25-0400 Body temperature 97.34 [degF] KYLIE PENGN [employer] GR[employer] RN-[employer]UNDRY OPERATOR [employer] [facility] 11-19-2022 06:25-0400 Diastolic Blood Pressure Non-Invasive 70 1 KYILE BLUM [employer] GR[employer] RN-LAUNDRY OPERATOR [employer] [facility] 11-19-2022 06:25-0400 Heart rate 56 /min KYLIE BLUM [employer] RN-LAUNDRY OPERATOR [employer] [facility] 11-19-2022 06:25-0400 Reason For Taking VItal Signs KYLIE BLUM [employer] GR[employer] RN-LAUNDRY OPERATOR [employer] [facility] 11-19-2022 06:25-0400 Respiratory rate 18 /min KYLIE BLUM [employer] RN-LAUNDRY OPERATOR [employer] [facility] 11-19-2022 06:25-0400 Systolic Blood Pressure Non-Invasive 114 1 KYLIE BLUM [employer] GR[employer] RN-LAUNDRY OPERATOR [employer] RO[employer] [facility] 11-19-2022 05:28-0400 Heart rate 57 /min KYLIE BLUM [employer] RN-LAUNDRY OPERATOR [employer] [facility] 11-19-2022 03:49-0400 Body temperature 97.88 [degF] KYLIE PENGN [employer] GR[employer] RN-LAUNDRY OPERATOR [employer] [facility] 11-19-2022 03:49-0400 Diastolic Blood Pressure Non-Invasive 55 1 KYLIE PENGN [employer] GR[employer] RN-LAUNDRY OPERATOR [employer] [facility] 11-19-2022 03:49-0400 Heart rate 71 /min KYLIE BLUM [employer] GR[employer] RN-LAUNDRY OPERATOR [employer] RO[employer] [facility] 11-19-2022 03:49-0400 Systolic Blood Pressure Non-Invasive 114 1 KYLIE BLUM [employer] GR[employer] RN-LAUNDRY OPERATOR [employer] RO[employer] [facility] 11-18-2022 23:21-0400 Heart rate 50 /min KYLIE BLUM [employer] RN-LAUNDRY OPERATOR [employer] RO[employer] [facility] 11-18-2022 23:08-0400 Body temperature 97.88 [degF] KYLIE BLUM [employer] RN-LAUNDRY OPERATOR [employer] RO[employer] [facility] 11-18-2022 23:08-0400 Heart rate 58 /min KYLIE BLUM [employer] RN-LAUNDRY OPERATOR [employer] [facility] 11-18-2022 18:13-0400 Heart rate 69 /min KYLIE BLUM [employer] RN-LAUNDRY OPERATOR [employer] RO[employer] [facility] 11-18-2022 17:51-0400 Body height 177 cm KYLIE BLUM [employer] GR[employer] RN-LAUNDRY OPERATOR [employer] [facility] 11-18-2022 17:51-0400 Body weight 82.4 kg KYLIE BLUM [employer] GR[employer] RN-LAUNDRY OPERATOR [employer] [facility] 11-18-2022 17:51-0400 Body weight 26.3 kg/m2 KYLIE BLUM [employer] GR[employer] RN-LAUNDRY OPERATOR [employer] [facility] 11-18-2022 17:42-0400 Reason For Taking VItal Signs KYLIE PENGJames NEW GRAD RN-LAUNDRY OPERATOR [employer] [facility] 11-17-2022 11:10-0400 Body weight 83.01 kg Jaci Arroyo MD Work Phone: [facility] 11-17-2022 11:10-0400 Diastolic blood pressure 59 mm[Hg] Jaci Arroyo MD Work Phone: [facility] 11-17-2022 11:10-0400 Heart rate 64 /min Jaci Arroyo MD Work Phone: [facility] 11-17-2022 11:10-0400 Respiratory rate 16 /min Jaci Arroyo MD Work Phone: [facility] 11-17-2022 11:10-0400 SaO2% (BldA) [Mass fraction] 94 % Jaci Arroyo MD Work Phone: [facility] 11-17-2022 11:10-0400 Systolic blood pressure 90 mm[Hg] Jaci Arroyo MD Work Phone: [facility] 11-15-2022 14:10-0400 SaO2% (BldA) [Mass fraction] 91 % Dr. Jaci Arroyo Work Phone: [facility] 11-15-2022 13:31-0400 Body temperature 98.8 [degF] Dr. Jaci Arroyo Work Phone: [facility] 11-15-2022 13:31-0400 Diastolic blood pressure 71 mm[Hg] Dr. Jaci Arroyo Work Phone: [facility] 11-15-2022 13:31-0400 Heart rate 62 /min Dr. Jaci Arroyo Work Phone: [facility] 11-15-2022 13:31-0400 Respiratory rate 16 /min Dr. Jaci Arroyo Work Phone: [facility] 11-15-2022 13:31-0400 Systolic blood pressure 132 mm[Hg] Dr. Jaci Arroyo Work Phone: [facility] 11-15-2022 12:25-0400 Inhaled oxygen flow rate 4 L/min Dr. Jaci Arroyo Work Phone: [facility] 11-12-2022 14:44-0400 Body height 177.[address] Jaci Arroyo Work Phone: [facility] 11-12-2022 14:44-0400 Body weight 88.[address] Jaci Arroyo Work Phone: 2(072)935-498655 [place] [address] 11-11-2022 15:30-0400 Body mass index (BMI) [Ratio] 28 kg/m2 Dr. Jaci Arroyo Work Phone: 6(253)342-445655 [place] [address] 11-11-2022 14:42-0400 Body temperature 98.2 [degF] Dr. Jaci Arroyo Work Phone: 4(004)261-828955 [place] [address] 11-11-2022 14:42-0400 Diastolic blood pressure 58 mm[Hg] Dr. Jaci Arroyo Work Phone: 7(243)098-298655 [place] [address] 11-11-2022 14:42-0400 Heart rate 50 /min Dr. Jaci Arroyo Work Phone: 6(967)632-638755 [place] [address] 11-11-2022 14:42-0400 Inhaled oxygen flow rate 3 L/min Dr. Jaci Arroyo Work Phone: 4(403)390-910055 [place] [address] 11-11-2022 14:42-0400 Respiratory rate 18 /min Dr. Jaci Arroyo Work Phone: 0(887)027-317155 [place] [address] 11-11-2022 14:42-0400 SaO2% (BldA) [Mass fraction] 93 % Dr. Jaci Arroyo Work Phone: 9(168)313-716955 [place] [address] 11-11-2022 14:42-0400 Systolic blood pressure 128 mm[Hg] Dr. Jaci Arroyo Work Phone: 9(474)[phone] [place] [address] 11-11-2022 13:14-0400 Body height 175.[address] Jaci Arroyo Work Phone: 1(518)627-832755 [place] [address] 11-11-2022 13:14-0400 Body mass index (BMI) [Ratio] 30.7 kg/m2 Dr. Jaci Arroyo Work Phone: 3(363)488-269255 [place] [address] 11-11-2022 13:14-0400 Body weight 94.[address] Jaci Arroyo Work Phone: 0(968)[phone] [place] [address] 10-15-2022 15:51-0400 Body weight 87.09 kg Robin Johansen MD Work Phone: [facility] 10-15-2022 15:51-0400 Diastolic blood pressure 70 mm[Hg] Robin Johansen MD Work Phone: [facility] 10-15-2022 15:51-0400 Heart rate 72 /min Robin Johansen MD Work Phone: [facility] 10-15-2022 15:51-0400 SaO2% (BldA) [Mass fraction] 91 % Robin Johansen MD Work Phone: [facility] 10-15-2022 15:51-0400 Systolic blood pressure 118 mm[Hg] Robin Johansen MD Work Phone: [facility] 09-03-2022 11:08-0500 Body height 177.8 cm Robin Johansen MD Work Phone: [facility] 09-03-2022 11:08-0500 Body weight 88 kg Robin Johansen MD Work Phone: [facility] 09-03-2022 11:08-0500 Diastolic blood pressure 74 mm[Hg] Robin Johansen MD Work Phone: [facility] 09-03-2022 11:08-0500 Heart rate 58 /min Robin Johansen MD Work Phone: [facility] 09-03-2022 11:08-0500 Respiratory rate 16 /min Robin Johansen MD Work Phone: [facility] 09-03-2022 11:08-0500 SaO2% (BldA) [Mass fraction] 96 % Robin Johansen MD Work Phone: [facility] 09-03-2022 11:08-0500 Systolic blood pressure 150 mm[Hg] Robin Johansen MD Work Phone: [facility] 08-22-2022 07:07-0500 Body mass index (BMI) [Ratio] 28.5 kg/m2 Dr. Jaci Arroyo Work Phone: [facility] 08-22-2022 07:07-0500 Body temperature 97.6 [degF] Dr. Jaci Arroyo Work Phone: [facility] 08-22-2022 07:07-0500 Body weight 87.[address] Jaci Arroyo Work Phone: [facility] 08-22-2022 07:07-0500 Diastolic blood pressure 69 mm[Hg] Dr. Jaci Arroyo Work Phone: [facility] 08-22-2022 07:07-0500 Heart rate 44 /min Dr. Jaci Arroyo Work Phone: [facility] 08-22-2022 07:07-0500 Respiratory rate 16 /min Dr. Jaci Arroyo Work Phone: [facility] 08-22-2022 07:07-0500 SaO2% (BldA) [Mass fraction] 93 % Dr. Jaci Arroyo Work Phone: [facility] 08-22-2022 07:07-0500 Systolic blood pressure 112 mm[Hg] Dr. Jaci Arroyo Work Phone: [facility] 08-21-2022 14:42-0500 Body height 177.8 cm Desmond Ambriz PA-C Work Phone: [facility] 08-21-2022 14:42-0500 Body temperature 99.61 [degF] Desmond Ambriz PA-C Work Phone: [facility] 08-21-2022 14:42-0500 Body weight 88 kg Desmond Ambriz PA-C Work Phone: [facility] 08-21-2022 14:42-0500 Diastolic blood pressure 70 mm[Hg] Desmond Ambriz PA-C Work Phone: [facility] 08-21-2022 14:42-0500 Heart rate 64 /min Desmond Ambriz PA-C Work Phone: [facility] 08-21-2022 14:42-0500 Respiratory rate 18 /min Desmond Ambriz PA-C Work Phone: [facility] 08-21-2022 14:42-0500 SaO2% (BldA) [Mass fraction] 95 % Desmond Ambriz PA-C Work Phone: [facility] 08-21-2022 14:42-0500 Systolic blood pressure 122 mm[Hg] Desmond Ruizoney PA-C Work Phone: [facility] 08-17-2022 15:54-0500 Inhaled oxygen flow rate 2 L/min Dr. Jaci Arroyo Work Phone: [facility] 08-17-2022 14:27-0500 Heart rate 64 /min Dr. Jaci Arroyo Work Phone: [facility] 08-17-2022 14:27-0500 Respiratory rate 22 /min Dr. Jaci Arroyo Work Phone: [facility] 08-17-2022 14:27-0500 SaO2% (BldA) [Mass fraction] 93 % Dr. Jaci Arroyo Work Phone: [facility] 08-17-2022 13:52-0500 Body temperature 98.5 [degF] Dr. Jaci Arroyo Work Phone: [facility] 08-17-2022 13:52-0500 Diastolic blood pressure 62 mm[Hg] Dr. Jaci Arroyo Work Phone: [facility] 08-17-2022 13:52-0500 Systolic blood pressure 102 mm[Hg] Dr. Jaci Arroyo Work Phone: [facility] [facility] 08-17-2022 05:23-0500 Body weight 88.[address] Jaci Arroyo Work Phone: [facility] 08-16-2022 13:20-0500 Body height 175.[address] Jaci Arroyo Work Phone: [facility] Work Phone: 08-16-2022 13:20-0500 Body mass index (BMI) [Ratio] 28.8 kg/m2 Dr. Jaci Arroyo Work Phone: [facility] 08-16-2022 12:31-0500 Body temperature 98.1 [degF] Dr. Jaci Arroyo Work Phone: [facility] Work Phone: 08-16-2022 12:31-0500 Diastolic blood pressure 57 mm[Hg] Dr. Jaci Arroyo Work Phone: [facility] Work Phone: 08-16-2022 12:31-0500 Heart rate 44 /min Dr. Jaci Arroyo Work Phone: [facility] Work Phone: 08-16-2022 12:31-0500 Respiratory rate 17 /min Dr. Jaci Arroyo Work Phone: [facility] Work Phone: 08-16-2022 12:31-0500 SaO2% (BldA) [Mass fraction] 92 % Dr. Jaci Arroyo Work Phone: [facility] Work Phone: 08-16-2022 12:31-0500 Systolic blood pressure 148 mm[Hg] Dr. Jaci Arroyo Work Phone: [facility] Work Phone: 08-16-2022 10:02-0500 Body height 175.[address] Jaci Arroyo Work Phone: [facility] Work Phone: 08-16-2022 10:02-0500 Body mass index (BMI) [Ratio] 28.8 kg/m2 Dr. Jaci Arroyo Work Phone: [facility] Work Phone: 08-16-2022 10:02-0500 Body weight 88.[address] Jaci Arroyo Work Phone: [facility] Work Phone: 06-19-2022 13:29-0500 Body height 175.[address] Jaci Arroyo Work Phone: [facility] Work Phone: 06-19-2022 13:29-0500 Body weight 88.[address] Jaci Arroyo Work Phone: [facility] Work Phone: 06-19-2022 13:29-0500 Heart rate 56 /min Dr. Jaci Arroyo Work Phone: [facility] Work Phone: 06-19-2022 13:29-0500 SaO2% (BldA) [Mass fraction] 94 % Dr. Jaci Arroyo Work Phone: [facility] Work Phone: 05-29-2022 12:41-0400 Body mass index (BMI) [Ratio] 28.3 kg/m2 Dr. Jaci Arroyo Work Phone: [facility] Work Phone: 05-29-2022 12:41-0400 Body temperature 99.1 [degF] Dr. Jaci Arroyo Work Phone: [facility] Work Phone: 05-29-2022 12:41-0400 Body weight 87.[address] Jaci Arroyo Work Phone: [facility] Work Phone: 05-29-2022 12:41-0400 Diastolic blood pressure 76 mm[Hg] Dr. Jaci Arroyo Work Phone: [facility] Work Phone: 05-29-2022 12:41-0400 Heart rate 52 /min Dr. Jaci Arroyo Work Phone: [facility] Work Phone: 05-29-2022 12:41-0400 Respiratory rate 16 /min Dr. Jaci Arroyo Work Phone: [facility] Work Phone: 05-29-2022 12:41-0400 SaO2% (BldA) [Mass fraction] 93 % Dr. Jaci Arroyo Work Phone: [facility] Work Phone: 05-29-2022 12:41-0400 Systolic blood pressure 132 mm[Hg] Dr. Jaci Arroyo Work Phone: [facility] Work Phone: 04-19-2022 10:34-0400 Body height 175.3 cm Sabiha Stevens MD Work Phone: [facility] 04-19-2022 10:34-0400 Body weight 86.18 kg Sabiha Stevens MD Work Phone: [facility] 04-19-2022 10:34-0400 Diastolic blood pressure 70 mm[Hg] Sabiha Stevens MD Work Phone: [facility] 04-19-2022 10:34-0400 Heart rate 60 /min Sabiha Stevens MD Work Phone: [facility] 04-19-2022 10:34-0400 Respiratory rate 16 /min Sabiha Stevens MD Work Phone: [facility] 04-19-2022 10:34-0400 Systolic blood pressure 122 mm[Hg] Sabiha Stevens MD Work Phone: [facility] 01-24-2022 15:30-0400 Body weight 86.64 kg Jaci Arroyo MD Work Phone: [facility] 01-24-2022 15:30-0400 Diastolic blood pressure 78 mm[Hg] Jaci Arroyo MD Work Phone: [facility] 01-24-2022 15:30-0400 Heart rate 72 /min Jaci Arroyo MD Work Phone: [facility] 01-24-2022 15:30-0400 Respiratory rate 16 /min Jaci Arroyo MD Work Phone: [facility] 01-24-2022 15:30-0400 Systolic blood pressure 124 mm[Hg] Jaci Arroyo MD Work Phone: [facility] 11-10-2021 12:30-0400 Body height 175.[address] Jaci Arroyo Work Phone: [facility] Work Phone: 11-10-2021 12:30-0400 Body weight 87.[address] Jaci Arroyo Work Phone: [facility] Work Phone: 11-10-2021 12:30-0400 Heart rate 56 /min Dr. Jaci Arroyo Work Phone: [facility] Work Phone: 11-10-2021 12:30-0400 SaO2% (BldA) [Mass fraction] 93 % Dr. Jaci Arroyo Work Phone: [facility] Work Phone: 10-06-2021 08:38-0500 Body mass index (BMI) [Ratio] 28.9 kg/m2 Dr. Jaci Arroyo Work Phone: [facility] Work Phone: 10-06-2021 08:38-0500 Body temperature 98.6 [degF] Dr. Jaci Arroyo Work Phone: [facility] Work Phone: 10-06-2021 08:38-0500 Body weight 88.[address] Jaci Arroyo Work Phone: [facility] Work Phone: 10-06-2021 08:38-0500 Diastolic blood pressure 65 mm[Hg] Dr. Jaci Arroyo Work Phone: [facility] Work Phone: 10-06-2021 08:38-0500 Heart rate 60 /min Dr. Jaci Arroyo Work Phone: [facility] Work Phone: 10-06-2021 08:38-0500 Respiratory rate 17 /min Dr. Jaci Arroyo Work Phone: [facility] Work Phone: 10-06-2021 08:38-0500 SaO2% (BldA) [Mass fraction] 91 % Dr. Jaci Arroyo Work Phone: [facility] Work Phone: 10-06-2021 08:38-0500 Systolic blood pressure 117 mm[Hg] Dr. Jaci Arroyo Work Phone: [facility] Work Phone: 08-23-2021 14:20-0500 Body mass index (BMI) [Ratio] 27.9 kg/m2 Dr. Jaci Arroyo Work Phone: [facility] Work Phone: 08-23-2021 12:52-0500 Body temperature 97.8 [degF] Dr. Jaci Arroyo Work Phone: [facility] Work Phone: 08-23-2021 12:52-0500 Diastolic blood pressure 67 mm[Hg] Dr. Jaci Arroyo Work Phone: [facility] Work Phone: 08-23-2021 12:52-0500 Heart rate 72 /min Dr. Jaci Arroyo Work Phone: [facility] Work Phone: 08-23-2021 12:52-0500 Respiratory rate 18 /min Dr. Jaci Arroyo Work Phone: [facility] Work Phone: 08-23-2021 12:52-0500 SaO2% (BldA) [Mass fraction] 97 % Dr. Jaci Arroyo Work Phone: [facility] Work Phone: 08-23-2021 12:52-0500 Systolic blood pressure 152 mm[Hg] Dr. Jaci Arroyo Work Phone: [facility] Work Phone: 08-23-2021 05:00-0500 Body weight 85.[address] Jaci Arroyo Work Phone: [facility] Work Phone: Encounters Encounter Date Encounter Type Care Provider Facility Start: 03-08-2025 End: 03-08-2025 Telephone encounter Jaci Arroyo MD Work Phone: [facility] [place] Comment on above: Letter Start: 03-02-2025 End: 03-02-2025 ambulatory MARIANO LAURAIL Facility:[facility] Start: 03-02-2025 End: 03-02-2025 Patient encounter procedure Mariano Beckman NEW GR[employer] RN.LAUNDRY OPERATOR WASH ROOM Work Phone: [facility] [place] Comment on above: Bilateral impacted c erumen (Primary Dx) Start: 02-18-2025 End: 02-18-2025 Telephone encounter Jaci Arroyo MD Work Phone: [facility] [place] Comment on above: Faxed to [address] Start: 02-15-2025 End: 02-17-2025 Telephone encounter Jaci Arroyo MD Work Phone: [facility] [place] Comment on above: Medication Request Medication Problem Start: 02-03-2025 End: 02-03-2025 Telephone encounter Jaci Arroyo MD Work Phone: Family [facility] [place] Comment on above: Patient Question Start: 02-01-2025 End: 02-01-2025 Patient encounter procedure Robin Johansen MD Work Phone: Cardiology Comment on above: Coronary artery dise ase involving [place] coronary artery of [place] heart without angina pectoris (Primary Dx); Paroxysmal atrial fibrillation (HCC); Essential hypertension; Mixed hyperlipidemia; Occlusion of left carotid artery; Sinus bradycardia Start: 02-01-2025 End: 02-01-2025 ambulatory ROBIN JOHANSEN Facility:[facility] Start: 01-18-2025 End: 01-21-2025 ambulatory Earl Harrison APRN.LAUNDRY OPERATOR WASH ROOM Work Phone: Pulmonary Medicine Start: 01-14-2025 End: 01-14-2025 Office outpatient visit 25 minutes Jaci Arroyo MD Work Phone: [facility] [place] Comment on above: Essential hypertensi on (Primary Dx); Cervicalgia; Anxiety; Hyperlipidemia, unspecified hyperlipidemia type; Seizure (HCC); Focal epilepsy (HCC); Centrilobular emphysema (HCC); Chronic respiratory failure with hypoxia (HCC); Chronic insomnia; Acute cough; Moderate recurrent major depression (HCC); CVA, old, hemiparesis (HCC); Stage 3a chronic kidney disease (HCC) Start: 01-14-2025 End: 01-14-2025 [facility] Start: 12-31-2024 End: 12-31-2024 Telemedicine consultation with patient Joycelyn Woodruff MD Work Phone: Neurology Start: 12-31-2024 End: 12-31-2024 ambulatory Joycelyn Woodruff MD Work Phone: Neurology Comment on above: Seizure (HCC) (Prima ry Dx) Start: 12-26-2024 End: 01-07-2025 Telephone encounter Jaci Arroyo MD Work Phone: [facility] [place] Comment on above: Forms ([facility] Start: 12-03-2024 End: 12-03-2024 Telephone encounter Jaci Arroyo MD Work Phone: [facility] [place] Comment on above: Patient Update Start: 12-03-2024 End: 12-03-2024 Patient encounter procedure Consuelo Farooq APRN.LAUNDRY OPERATOR WASH ROOM Work Phone: [facility] [place] Comment on above: Acute cough (Primary Dx) Start: 12-03-2024 End: 12-03-2024 ambulatory JACI ARROYO Facility:[facility] Start: 12-02-2024 End: 12-02-2024 Telephone encounter Jaci Arroyo MD Work Phone: [facility] [place] Comment on above: Patient Update Start: 11-27-2024 End: 01-16-2025 Telephone encounter Jaci Arroyo MD Work Phone: [facility] [place] Comment on above: Power Wheel Chair Start: 11-10-2024 End: 11-10-2024 Patient encounter procedure Deanne Cruz DO Work Phone: Vascular Surgery Comment on above: Occlusion of left ca rotid artery (Primary Dx); Subclavian artery stenosis, left Start: 11-10-2024 End: 11-10-2024 ambulatory JACI ARROYO Facility:[facility] Start: 10-22-2024 End: 10-22-2024 Telephone encounter Kimo Mcgrath MD Work Phone: Pulmonary Medicine Comment on above: Patient Update Start: 10-20-2024 End: 10-22-2024 Telephone encounter Earl Elise APRN.LAUNDRY OPERATOR WASH ROOM Work Phone: Pulmonary Medicine Start: 10-16-2024 End: 10-16-2024 Telephone encounter Yessi Hough MD Work Phone: Neurology Comment on above: Medication Problem ( Patient's cut the Lyrica dose) Start: 10-14-2024 End: 10-14-2024 Telephone encounter Jaci Arroyo MD Work Phone: Family [facility] [place] Comment on above: Orders Start: 10-13-2024 End: 10-16-2024 Evaluation and management of inpatient REGGIE Warner NROA [employer] RN-LAUNDRY OPERATOR WASH ROOM Facility:[facility] Start: 10-09-2024 End: 10-09-2024 Admission to same day surgery center Nikkie Prado APRN.LAUNDRY OPERATOR WASH ROOM Work Phone: General Surgery Comment on above: [employer] Prep Instruc tions for Colonoscopy Start: 10-09-2024 End: 10-09-2024 E-mail encounter from caregiver Nikkie Johan WOOD Work Phone: General Surgery Start: 10-08-2024 End: 10-08-2024 Telephone encounter Jaci Arroyo MD Work Phone: [facility] [place] Comment on above: Patient Update Start: 10-07-2024 End: 10-07-2024 Office outpatient visit 25 minutes Jessie Harmon APRN.LAUNDRY OPERATOR WASH ROOM Work Phone: [facility] [place] Comment on above: Hospital discharge f ollow-up (Primary Dx); Falls frequently; Generalized weakness; Unsteady gait; Cerebrovascular accident (CVA), unspecified mechanism (HCC); Paroxysmal atrial fibrillation (HCC); Seizure disorder (HCC) Start: 10-07-2024 End: 10-07-2024 ambulatory ONA Shar [facility] Facility[facility] Start: 10-06-2024 End: 10-06-2024 ambulatory [facility] Facility[facility] Start: 10-06-2024 End: 10-06-2024 Office outpatient visit 25 minutes Earl Elise APRN.LAUNDRY OPERATOR WASH ROOM Work Phone: Pulmonary Medicine Comment on above: COPD, moderate (HCC) (Primary Dx); Former cigarette smoker; Dependence on nocturnal oxygen therapy Start: 10-01-2024 End: 10-01-2024 Telephone encounter Jaci Arroyo MD Work Phone: [facility] [place] Comment on above: Patient Update; Hosp ital F/U Start: 10-01-2024 End: 10-01-2024 Telemedicine consultation with patient Joycelyn Woodruff MD Work Phone: Neurology Start: 10-01-2024 End: 10-01-2024 ambulatory Joycelyn Woodruff MD Work Phone: Neurology Comment on above: Focal epilepsy (HCC) (Primary Dx) Start: 09-25-2024 End: 09-25-2024 Refill Jaci Arroyo MD Work Phone: [facility] [place] Comment on above: Refill Request Forms ([place]) Start: 09-23-2024 End: 09-24-2024 Orders Only Deanne Cruz DO Work Phone: Vascular Surgery Comment on above: Occlusion of left ca rotid artery (Primary Dx); Subclavian artery stenosis, left (HCC) Start: 09-21-2024 End: 09-22-2024 Telephone encounter Dania Aj MD Work Phone: Neurology Comment on above: Medication Problem 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 - O ther Start: 09-15-2024 End: 09-18-2024 Emergency department patient visit DR TRACEY DIAL DO Facility:[facility] Start: 09-15-2024 End: 09-18-2024 Observation RICARDO MARIE NEW GRAD RN-LAUNDRY OPERATOR WASH ROOM [facility] Start: 09-15-2024 End: 09-15-2024 ambulatory Nurse Intm/Famp Triage [facility] Work Phone: Nurse Phone Triage Comment on above: Musculoskeletal Prob kuldeep; urine bright orange with odor; foul smelling bowel movement Start: 09-14-2024 End: 09-14-2024 Refill Kimo Mcgrath MD Work Phone: Pulmonary Medicine Comment on above: Refill Request Start: 09-08-2024 End: 09-08-2024 Telephone encounter Jaci Arroyo MD Work Phone: [facility] [place] Comment on above: Medication Problem Start: 09-04-2024 End: 09-04-2024 Refill Robin Johansen MD Work Phone: Cardiology Comment on above: Refill Request Start: 09-03-2024 End: 09-03-2024 Patient encounter procedure Joycelyn Woodruff MD Work Phone: Neurology Comment on above: Focal epilepsy (HCC) (Primary Dx); Seizure disorder (HCC); Seizure (HCC) Start: 09-03-2024 End: 09-03-2024 ambulatory JACI ARROYO Facility:[facility] Start: 08-14-2024 End: 08-14-2024 Telephone encounter Jaci Arroyo MD Work Phone: [facility] [place] Comment on above: Release Of Medical R ecords Refill Request Start: 08-07-2024 End: 08-07-2024 Refill Jessie Harmon APRN.LAUNDRY OPERATOR WASH ROOM Work Phone: [facility] [place] Comment on above: Med Change Request Start: 07-30-2024 End: 07-31-2024 Refill Jaci Arroyo MD Work Phone: [facility] [place] Comment on above: Refill Request Start: 07-28-2024 End: 07-28-2024 ambulatory Jayde Wright RN NURSE PAYABLE MANAGER Comment on above: Information Start: 07-27-2024 End: 09-01-2024 Telephone encounter Jaci Arroyo MD Work Phone: [facility] [place] Comment on above: incontinence supplie s Start: [...] Telephone encounter Jaci Arroyo MD Work Phone: [facility] [place] Comment on above: Patient Question Start: 07-22-2024 [...] encounter procedure Jessie Harmon APRN.CNP Work Phone: [facility] Comment on above: Seizure disorder (HC C) (Primary Dx); Acute pain of left knee Start: 07-13-2024 End: 07-23-2024 ambulatory [facility] Comment on above: Dr Gloria Sawyer- Surve illance CTA head and neck due Start: 07-07-2024 End: 07-07-2024 Telephone encounter Dania Aj MD Work Phone: Sleep Comment on above: apt needed Start: 07-06-2024 End: 07-06-2024 ambulatory [facility] Facility:[facility] Start: 07-01-2024 End: 07-01-2024 Patient encounter procedure Jessie Harmon NEW GRAD RN.LAUNDRY OPERATOR WASH ROOM Work Phone: [facility] Comment on above: Hospital discharge f ollow-up (Primary Dx); Adverse effect of drug, initial encounter; Seizure disorder (HCC); Bacterial pneumonia Start: 07-01-2024 End: 07-01-2024 ambulatory JACI ARROYO Facility:[facility] Start: 06-29-2024 End: 06-29-2024 Telephone encounter Jaci Arroyo MD Work Phone: [facility] Comment on above: Patient Update Start: 06-28-2024 End: 06-28-2024 ambulatory [facility] Facility:[facility] Start: 06-27-2024 End: 06-28-2024 ambulatory Medina Al RN NURSE PAYABLE MANAGER Comment on above: Medication Question Start: 06-26-2024 End: 06-26-2024 Emergency department patient visit [facility] Facility:[facility] Start: 06-25-2024 End: 06-25-2024 Telephone encounter Jaci Arroyo MD Work Phone: [facility] Comment on above: Medication Request; Patient Update Start: 06-24-2024 End: 06-25-2024 Telephone encounter [facility] Comment on above: Medication Question Start: 06-23-2024 End: 06-24-2024 Telephone encounter Dania Aj MD Work Phone: Neurology Comment on above: Results Start: 06-18-2024 End: 06-19-2024 Telephone encounter Jaci Arroyo MD Work Phone: [facility] Comment on above: Insurance Authorizat ion (Amiodarone ) Procedure Start: 06-15-2024 End: 06-15-2024 ambulatory Dania Aj Facility:[facility] Start: 06-05-2024 End: 06-05-2024 Telemedicine consultation with patient Jessie Gardner NEW GRAD RN.LAUNDRY OPERATOR WASH ROOM Work Phone: [facility] Start: 06-05-2024 End: 06-05-2024 ambulatory Jessie Gardner NEW GRAD RN.LAUNDRY OPERATOR WASH ROOM Work Phone: [facility] Comment [...] 05-28-2024 Refill Jaci Arroyo MD Work Phone: [facility] Comment on above: Refill Request Medication Clarifica tion Start: 05-27-2024 End: 05-27-2024 ambulatory Jaci Arroyo Facility:[facility] Start: 05-26-2024 End: 05-26-2024 ambulatory Kimo Mcgrath Facility:[facility] Start: 05-22-2024 End: 05-22-2024 Telephone encounter [...] Start: 05-20-2024 End: 05-20-2024 ambulatory JACI ARROYO Facility:[facility] Start: 05-14-2024 End: 05-15-2024 Telephone encounter Jaci Arroyo MD Work Phone: [facility] [place] Comment on above: Orders Start: 05-12-2024 End: 05-12-2024 Refill Jaci Arroyo MD Work Phone: [facility] [place] Comment on above: Med Change Request Start: 05-08-2024 End: 05-08-2024 Telephone encounter Dania Aj MD Work Phone: Neurology Comment on above: Results Start: 05-07-2024 End: 05-07-2024 ambulatory DANIA AJ JR Facility[facility] Start: 05-07-2024 End: 05-07-2024 Subsequent hospital visit by physician [facility] (I-Stat/1.5t) Work Phone: Radiology Comment [...] Refill Jaci Arroyo MD Work Phone: [facility] [place] Comment on above: Refill Request Start: 04-08-2024 End: 04-08-2024 Emergency department patient visit Jaci Arroyo Facility:[facility] Start: 04-03-2024 End: 04-03-2024 ambulatory JACI ARROYO Facility:[facility] Start: 04-03-2024 End: 04-03-2024 Patient encounter procedure Jaci Arroyo MD Work Phone: [facility] [place] Comment on above: Medicare annual well ness visit, initial (Primary Dx); Mixed hyperlipidemia; Anxiety; Coronary artery disease involving [place] coronary artery of [place] heart without angina pectoris; Essential hypertension; Chronic insomnia; Paroxysmal atrial fibrillation (HCC); Bradycardia; 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) Start: 04-03-2024 End: 04-03-2024 Telephone encounter Jaci Arroyo MD Work Phone: [facility] [place] Comment on above: Insurance Authorizat ion Start: 04-02-2024 End: 04-02-2024 ambulatory DENA HORTENSIA Facility:[facility] Start: 04-01-2024 End: 04-01-2024 Telephone encounter Jaci Arroyo MD Work Phone: [facility] [place] Comment on above: Question Start: 03-31-2024 End: 03-31-2024 Refill Jaci Arroyo MD Work Phone: [facility] [place] Comment on above: Refill Request Start: 03-23-2024 End: 03-23-2024 ambulatory JACI ARROYO Facility:[facility] Start: 03-23-2024 End: 03-23-2024 Patient encounter procedure [...] on above: Coronary artery dise ase involving [place] coronary artery of [place] heart without angina pectoris (Primary Dx); Paroxysmal atrial fibrillation (HCC); Essential hypertension; Mixed hyperlipidemia; Bradycardia; Occlusion of left carotid artery; Pre-operative cardiovascular examination Start: 03-02-2024 End: 03-02-2024 Patient encounter status Robin Johansen MD Work Phone: [facility] Start: 02-28-2024 Telephone encounter Mohinder trammell MD [...] Telephone encounter Jaci caballero MD Work Phone: [facility] Comment on above: Patient Update Start: 01-16-2024 Telephone encounter Jaci caballero MD Work Phone: [facility] Comment on above: PA to be done Start: 01-09-2024 Telephone encounter Jaci caballero MD Work Phone: [facility] Comment on above: Skin Issue / Penis Start: 01-08-2024 Telephone encounter Jaci caballero MD Work Phone: [facility] Comment on above: Faxed to [address] Start: 01-07-2024 Telephone encounter Dena rollins APRN.LAUNDRY OPERATOR WASH ROOM Work Phone: Neurology Comment on above: Results Start: 01-03-2024 End: 01-03-2024 ambulatory Dena Hortensia Facility:[facility] Start: 12-31-2023 End: 12-31-2023 Patient encounter procedure Jaci Arroyo MD Work Phone: [facility] Comment on above: Hypertension, essent ial (Primary Dx); Anxiety; Depression, unspecified depression type; Chronic insomnia; Stage 3a chronic kidney disease (HCC); Elevated glucose; Hyperlipidemia, unspecified hyperlipidemia type; Erectile dysfunction, unspecified erectile dysfunction type; Iron deficiency anemia due to chronic blood loss; Paroxysmal atrial fibrillation (HCC); Chronic obstructive pulmonary disease, unspecified COPD type (HCC); Cerebrovascular accident (CVA), unspecified mechanism (HCC); Coronary artery disease involving [place] coronary artery of [place] heart without angina pectoris; 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); Right hemiplegia (HCC); Dysphasia; Aphasia as late effect of cerebrovascular accident; Essential hypertension Refill Request Start: 12-25-2023 Telephone encounter Dena rollins APRN.LAUNDRY OPERATOR WASH ROOM Work Phone: Neurology Comment on above: Results Start: 12-18-2023 Refill Jessie Harmon APRN.LAUNDRY OPERATOR WASH ROOM Work Phone: [facility] Comment on above: Refill Request Start: 12-18-2023 Telephone encounter Dena Th ria BECERRA.LAUNDRY OPERATOR WASH ROOM Work Phone: Neurology Comment on above: Results Start: 12-17-2023 Telephone encounter Dena Th ria NEW GRAD RN.LAUNDRY OPERATOR WASH ROOM Work Phone: Neurology Comment on above: Orders Start: 12-16-2023 End: 12-16-2023 Patient encounter procedure Dena Hortensiablaise BECERRA.LAUNDRY OPERATOR WASH ROOM Work Phone: Neurology Comment on above: DARON (obstructive sle ep apnea) (Primary Dx); Intolerance of continuous positive airway pressure (CPAP) ventilation; RLS (restless legs syndrome); Vitamin D deficiency Start: 11-26-2023 Telephone encounter Jaci caballero MD Work Phone: Family Medicine [place] Start: 11-22-2023 Refill Jaci qiu MD Work Phone: Family [facility] [place] Comment on above: Future Appointment; Orders; Prescription Refills Start: 11-04-2023 End: 11-04-2023 ambulatory [facility] Facility[facility] Start: 11-04-2023 Telephone encounter Jaci caballero MD Work Phone: Family Medicine [place] Comment on above: requesting referral Start: 10-28-2023 Refill Mariano Beckman APRN.LAUNDRY OPERATOR WASH ROOM Work Phone: Cardiology Comment on above: Refill Request Start: 10-11-2023 Telephone encounter Jaci caballero MD Work Phone: [facility] [place] Comment on above: Patient Update Start: 10-04-2023 Telephone encounter Dena Evelio rollins APRN.LAUNDRY OPERATOR WASH ROOM Work Phone: Neurology Comment on above: Appointment Start: 10-01-2023 End: 10-01-2023 Patient encounter procedure Deanne Cruz DO Work Phone: Vascular Surgery Comment on above: Occlusion of left ca rotid artery (Primary Dx); Subclavian artery stenosis, left (HCC) Start: 10-01-2023 Telephone encounter Jaci caballero MD Work Phone: [facility] [place] Comment on above: Requesting medicatio n change Start: 09-27-2023 End: 09-27-2023 Patient encounter procedure Jaci Arroyo MD Work Phone: [facility] [place] Comment on above: Cerebrovascular acci dent (CVA) due to embolism of left carotid artery (HCC) (Primary Dx); Right hemiplegia (HCC); Chronic insomnia; Mixed hyperlipidemia; Essential hypertension; Coronary artery disease involving un[place]et coronary artery of un[place]akleet heart without angina pectoris; Paroxysmal atrial fibrillation (HCC); Centrilobular emphysema (HCC); Erectile dysfunction, unspecified erectile dysfunction type; Anxiety; Stage 3 chronic kidney disease, unspecified whether stage 3a or 3b CKD (HCC); Aneurysm (HCC) Start: 09-26-2023 End: 09-26-[address] Jaci Arroyo Work Phone: [facility] Work Phone: Start: 09-26-2023 End: 09-26-2023 ambulatory Jaci Arroyo Facility:[facility] Start: 09-24-2023 Telephone encounter Jaci caballero MD Work Phone: Family [facility] [place] Comment on above: Orders Start: 09-20-2023 Telephone encounter Kimo Mcgrath MD Work Phone: Pulmonary Medicine Comment on above: Results Start: 09-19-2023 Telephone encounter Jaci caballero MD Work Phone: [facility] [place] Comment on above: Occupational therapy Plan of Care Start: 09-16-2023 End: 09-16-2023 Patient encounter procedure Kimo Mcgrath MD Work Phone: Pulmonary Medicine Comment on above: Centrilobular emphys marcelino (HCC) (Primary Dx); Former smoker; Nocturnal hypoxemia Start: 09-16-2023 Telephone encounter Jaci caballero MD Work Phone: [facility] [place] Comment on above: Medication Update Start: 09-13-2023 Telephone encounter Jaci caballero MD Work Phone: Family [facility] [place] Comment on above: Patient Update Start: 09-09-2023 Telephone encounter Jaci caballero MD Work Phone: [facility] [place] Comment on above: Home Health orders Start: 09-09-2023 End: 09-09-[address] Jaci Arroyo Work Phone: [facility] Work Phone: Start: 09-09-2023 End: 09-09-[address] Jaci Arroyo Work Phone: [facility] Start: 09-09-2023 End: 09-09-2023 ambulatory Jaci Arroyo Facility:[facility] Start: 09-02-2023 ambulatory Matt FENTON Facility:[facility] Start: 09-02-[address] Jaci Arroyo Work Phone: [facility] Start: 08-26-2023 ambulatory Matt FENTON Facility:[facility] Start: 08-26-[address] Jaci Arroyo Work Phone: [facility] Start: 08-20-2023 End: 08-20-[address] Jaci Arroyo Work Phone: [facility] Work Phone: Start: 08-19-[address] Jaci Arroyo Work Phone: [facility] Start: 08-13-2023 End: 08-13-[address] Jaci Arroyo Work Phone: [facility] Work Phone: Start: 08-12-2023 End: 08-12-[address] Jaci Arroyo Work Phone: [facility] Work Phone: Start: 08-12-[address] Jaci Arroyo Work Phone: [facility] [place] Start: 08-09-2023 Non-patient / Non-visit Dr. Jimi Arroyo Work Phone: [facility] Start: 08-08-2023 Non-patient / Non-visit Dr. Jimi Arroyo Work Phone: [facility] Work Phone: Start: 08-08-2023 Non-patient / Non-visit Dr. Jimi Arroyo Work Phone: [facility] Start: 08-07-2023 Non-patient / Non-visit Dr. Jimi Arroyo Work Phone: [facility] Work Phone: Start: 08-07-2023 End: 08-09-2023 Evaluation and management of inpatient Dr. Jaci Arroyo Work Phone: [facility]-Medical Surgical 3 Work Phone: Start: 08-07-2023 End: 08-09-[address] Jaci Arroyo Work Phone: [facility] Work Phone: Start: 08-07-2023 End: 08-07-2023 Non-patient / Non-visit Dr. Jaci Arroyo Work Phone: [facility] Start: 07-26-2023 End: 07-26-[address] Jaci Arroyo Work Phone: [facility] Work Phone: Start: 07-26-2023 End: 07-26-2023 Emergency department patient visit MATTHEW AVALOS MD Facility:B Start: 07-26-2023 End: 07-26-2023 Emergency department patient visit MATTHEW AVALOS MD [facility] Start: 07-25-2023 Telephone encounter I Donell driscoll MD Work Phone: Colorectal Surgery Comment on above: Results Start: 07-22-2023 Refill Jaci qiu MD Work Phone: [facility] [place] Comment on above: Refill Request Start: 07-15-2023 End: 07-15-2023 Refill I Donell Sandoval MD Work Phone: Colorectal Surgery Comment on above: Refill Request Pre-op evaluation (P rimary Dx); 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); Coronary artery disease involving unal[place]leet coronary artery of unalakleet heart without angina pectoris; Paroxysmal atrial fibrillation (HCC); Centrilobular emphysema (HCC) Patient Education Rectal mass (Primary Dx) Start: 07-15-2023 End: 07-15-2023 Preprocedural examination done [place] [id number] Work Phone: [facility] Work Phone: Start: 07-11-2023 Telephone encounter Jaci caballero MD Work Phone: [facility] Comment on above: Patient Question Start: 07-08-2023 End: 07-08-2023 Patient encounter procedure Robin Johansen MD Work Phone: Cardiology Comment on above: Coronary artery dise ase involving un[place] coronary artery of un[place]et heart without angina pectoris (Primary Dx); Paroxysmal atrial fibrillation (HCC); Essential hypertension; Bradycardia; Mixed hyperlipidemia; Occlusion of left carotid artery; Pre-operative cardiovascular examination Start: 07-08-2023 End: 07-08-2023 Patient encounter status Robin Johansen MD Work Phone: [facility] Work Phone: Start: 07-02-2023 Telephone encounter Robin [...] done I Donell Sandoval MD Work Phone: [facility] Start: 06-21-2023 Orders Only I Donell Sandoval MD Work Phone: Colorectal Surgery Comment on above: Cerebrovascular acci dent (CVA), unspecified mechanism (HCC) (Primary Dx) Start: 06-20-2023 ambulatory I Donell Sandoval MD Work Phone: Colorectal Surgery Start: 06-20-2023 Telephone encounter Robin Johansen MD Work Phone: [facility] Comment on above: Patient Question Start: 06-19-2023 [...] Subsequent hospital visit by physician [facility] (I-Stat/1.5t) Work Phone: Radiology Comment on above: Iron deficiency anem ia due to chronic blood loss [D50.0] Start: 06-11-2023 End: 06-11-2023 Patient encounter procedure Jaci Arroyo MD Work Phone: [facility] [place] Comment on above: Essential hypertensi on (Primary Dx); Anxiety; Depression, unspecified depression type; Hyperlipidemia, unspecified hyperlipidemia type; Elevated glucose; Cerebrovascular accident (CVA), unspecified mechanism (HCC); Right hemiplegia (HCC); Aphasia as late effect of cerebrovascular accident; Coronary artery disease involving un[place] coronary artery of unalakleet heart without angina pectoris; Paroxysmal atrial fibrillation (HCC); Iron deficiency anemia due to chronic blood loss; Erectile dysfunction, unspecified erectile dysfunction type; Chronic obstructive pulmonary disease, unspecified COPD type (HCC); Need for vaccination; Stage 3 chronic kidney disease, unspecified whether stage 3a or 3b CKD (HCC) Start: 06-07-2023 Telephone encounter Mariano hart APRN.CNP Work Phone: Family [facility] Comment on above: Results Start: 05-29-2023 Telephone encounter Kimo Mcgrath MD Work Phone: Pulmonary Medicine Comment on above: Results Start: 05-29-2023 End: 05-29-[address] Jaci Arroyo Work Phone: [facility]-Pulmonary Medicine [facility] Work Phone: Start: 05-28-2023 Telephone encounter Jorge Cardoso MD Work Phone: General Surgery Comment on above: Appointment Start: 05-27-2023 Telephone encounter Kimo Mcgrath MD Work Phone: Pulmonary Medicine Comment on above: Patient Question Start: 05-22-2023 End: 05-22-[address] Jaci Arroyo Work Phone: [facility] Work Phone: Start: 05-22-2023 End: 05-22-[address] Jaci Arroyo Work Phone: [facility]-Cat Scan, [facility] Work Phone: Start: 05-21-2023 End: 05-21-2023 Patient encounter procedure Jorge Cardoso MD Work Phone: General Surgery Comment on above: Iron deficiency anem ia due to chronic blood loss (Primary Dx) Start: 05-14-2023 End: 05-14-2023 Patient encounter procedure Bowen Hernadnez Work Phone: Podiatry Comment on above: Onychomycosis (Prima ry Dx); Pain in toe of left foot; Pain in toe of right foot Start: 05-13-2023 Chart abstracting Meka roberts PA-C Work Phone: Pulmonary Medicine Start: 05-13-2023 Telephone encounter Kimo Mcgrath MD Work Phone: Pulmonary Medicine Comment on above: Patient Question Start: 05-09-2023 Telephone encounter Jaci caballero MD Work Phone: Family [facility] [place] Comment on above: Patient Update; Miss ed SN Visit Start: 05-07-2023 Telephone encounter Jaci caballero MD Work Phone: [facility] [place] Comment on above: Forms Start: 04-22-2023 Telephone encounter Mariano hart APRN.LAUNDRY OPERATOR WASH ROOM Work Phone: [facility] Comment on above: Results Start: 04-19-2023 End: 04-19-2023 Office outpatient visit 25 minutes Mariano Bcekman APRN.LAUNDRY OPERATOR WASH ROOM Work Phone: [facility] [place] Comment on above: Iron deficiency anem ia due to chronic blood loss (Primary Dx); Fall, subsequent encounter; Right hemiplegia (HCC); Aneurysm (HCC); Stage 3a chronic kidney disease (HCC) Start: 04-12-2023 Telephone encounter Jaci caballero MD Work Phone: [facility] Comment on above: Orders Start: 04-11-2023 Telephone encounter Jorge Cardoso MD Work Phone: [place] Provider Adult Comment on above: Results Start: 04-11-[address] Jaci Arroyo Work Phone: [facility] Start: 04-10-2023 ambulatory SASHA SNAY Facility:[facility] Start: 04-10-2023 End: 04-10-2023 Subsequent hospital visit by physician Jorge Cardoso MD Work Phone: [facility] Comment on above: Iron deficiency anem ia due to chronic blood loss [D50.0] Start: 04-05-2023 Telephone encounter Sabiha Stevens MD Work Phone: [facility] Cardiac, Thoracic and Vascular Specialties Comment on above: Appointment (Appoint ment) Start: 04-05-2023 End: 04-05-2023 Patient encounter procedure Jorge Cardoso MD Work Phone: General Surgery Comment on above: Iron deficiency anem ia due to chronic blood loss Start: 04-04-[address] Jaci Arroyo Work Phone: [facility] Start: 04-02-2023 End: 04-02-[address] Jaci Arroyo Work Phone: [facility] Work Phone: Start: 04-02-[address] Jaci Arroyo Work Phone: [facility] Start: 03-28-[address] Jaci Arroyo Work Phone: [facility] Start: 03-27-2023 End: 03-27-[address] Jaci Arroyo Work Phone: [facility] Work Phone: Start: 03-27-2023 Telephone encounter Jaci caballero MD Work Phone: [facility] Comment on above: Patient Update Start: 03-25-2023 Refill Mariano Beckman APRN.CNP Work Phone: [facility] Comment on above: Refill Request Start: 03-22-2023 End: 03-27-[address] TRACEY DIAL DO Facility:[facility] Start: 03-22-2023 Telephone encounter Jaci caballero MD Work Phone: [facility] Comment on above: Patient Update Start: 03-21-2023 End: 03-21-2023 Emergency department patient visit MARIANO HOPKINS MD Facility:[facility] Start: 03-21-2023 End: 03-21-2023 Emergency department patient visit MARIANO HOPKINS MD [facility] Start: 03-18-2023 Refill Mariano Karuna NEW GRAD RN.LAUNDRY OPERATOR WASH ROOM Work Phone: [facility] [place] Comment on above: Refill Request Start: 03-12-2023 End: 03-12-2023 ambulatory [facility] Work Phone: [facility] Comment on above: Spirometry Start: 03-12-2023 End: 03-12-2023 Patient encounter procedure [facility] Work Phone: [facility] Comment on above: Centrilobular emphys marcelino (HCC) (Primary Dx); Former cigarette smoker; CVA, old, hemiparesis (HCC) Start: 03-11-2023 Refill Mariano Karuna NEW GRAD RN.LAUNDRY OPERATOR WASH ROOM Work Phone: [facility] [place] Comment on above: Refill Request Start: 03-11-2023 Telephone encounter Jaci caballero MD Work Phone: [facility] [place] Comment on above: Medication Request; Patient Question Forms (Incontinence supplies) Start: 03-07-2023 End: 03-07-2023 Patient encounter procedure Jaci Arroyo MD Work Phone: [facility] [place] Comment on above: Anxiety (Primary Dx) ; Essential hypertension; Hyperlipidemia, unspecified hyperlipidemia type; Coronary artery disease involving un[place]et coronary artery of unalakleet heart without angina pectoris; Cerebrovascular accident (CVA), [...] disease (HCC); Aneurysm (HCC) Start: 03-06-2023 Refill Jaci qiu MD Work Phone: [facility] Comment on above: Refill Request Start: 03-01-2023 Refill Mariano Karuna NEW GRAD RN.LAUNDRY OPERATOR WASH ROOM Work Phone: [facility] Comment on above: Refill Request Start: 02-28-2023 Telephone encounter Mariano Laurai l NEW GRAD RN.LAUNDRY OPERATOR WASH ROOM Work Phone: [facility] Comment on above: Results Start: 02-27-2023 Refill Mariano Karuna NEW GRAD RN.LAUNDRY OPERATOR WASH ROOM Work Phone: [facility] Comment on above: Refill Request Start: 02-21-2023 Refill Mariano Karuna NEW GRAD RN.LAUNDRY OPERATOR WASH ROOM Work Phone: [facility] Comment on above: Refill Request Start: 02-20-2023 Telephone encounter Robin Johansen MD Work Phone: [facility] Cardiology [place] Comment on above: Patient Update Start: 02-15-2023 Telephone encounter Jaci caballero MD Work Phone: [facility] Comment on above: Patient Question Start: 02-14-2023 Refill Mariano Karuna NEW GRAD RN.LAUNDRY OPERATOR WASH ROOM Work Phone: [facility] Comment on above: Refill Request Start: 02-13-2023 End: 02-13-[address] Jaci Arroyo Work Phone: [facility] Work Phone: Start: 02-13-2023 End: 02-13-[address] Jaci Arroyo Work Phone: [facility]-Speech Therapy Work Phone: Start: 02-13-2023 Telephone encounter Jaci caballero MD Work Phone: [facility] Comment on above: Patient Question Start: 01-28-2023 Refill Mariano Karuna NEW GRAD RN.LAUNDRY OPERATOR WASH ROOM Work Phone: [facility] Comment on above: Refill Request Start: 01-21-2023 ambulatory No Pcp Melany wright [place] Start: 12-11-2022 Telephone encounter Jaci caballero MD Work Phone: Family [facility] [place] Comment on above: Medication Problem ( back [...] 12-04-2022 Subsequent hospital visit by physician [facility] [place] Work Phone: Radiology Comment on above: Acute cough [R05.1] Start: 12-04-2022 End: 12-04-2022 Patient encounter procedure Jaci Arroyo MD Work Phone: [facility] [place] Comment on above: Acute cough (Primary Dx); Anxiety; Coronary artery disease involving unal[place]et coronary artery of unalakleet heart without angina pectoris; Paroxysmal atrial fibrillation (HCC); Right hemiplegia (HCC); Essential hypertension; Mixed hyperlipidemia; Tracheostomy status (HCC); Aneurysm (HCC) Start: 12-04-2022 Telephone encounter Jaci caballero MD Work Phone: Family [facility] [place] Comment on above: Patient Update; FYI- No Action Needed Start: 12-03-2022 Telephone encounter Jaci caballero MD Work Phone: Family Medicine [place] Comment on above: Patient Update Start: 11-29-2022 Telephone encounter Jaci caballero MD Work Phone: [facility] [place] Comment on above: ST plan of care Start: 11-27-2022 Telephone encounter Jaci caballero MD Work Phone: Family [facility] [place] Comment on above: plan of care Start: 11-26-2022 Telephone encounter Jaci caballero MD Work Phone: [facility] Comment on above: PT plan of care Start: 11-23-2022 Telephone encounter Robin Johansen MD Work Phone: Cardiology Comment on above: Appointment Start: 11-19-2022 Telephone encounter Jaci caballero MD Work Phone: [facility] Comment on above: Delay of care Start: 11-18-2022 End: 11-19-2022 ambulatory Ford Jones RN F [facility] Start: 11-18-2022 Patient encounter procedure Ford Jones RN NURSE PAYABLE MANAGER Comment on above: Appointment Start: 11-18-2022 End: 11-19-2022 Observation KYLIE BLUM NEW GRAD RN-LAUNDRY OPERATOR WASH ROOM [facility] Start: 11-17-2022 End: 11-17-2022 Patient encounter procedure Jaci Arroyo MD Work Phone: [facility] Comment on above: Bacterial pneumonia (Primary Dx); Right hemiplegia (HCC); Essential hypertension; Bradycardia; Anxiety; Chronic insomnia; Shortness of breath; COPD with exacerbation (HCC); Aneurysm (HCC); Tracheostomy status (HCC) Start: 11-16-2022 ambulatory Jaci qiu MD Work Phone: [facility] Start: 11-16-2022 Telephone encounter Jaci caballero MD Work Phone: [facility] Comment on above: Patient concern Orders home health calling needs verbal order Transition Of Care Start: 11-15-2022 Non-patient / Non-visit Dr. Jimi Arroyo Work Phone: [facility] Start: 11-14-2022 Telephone encounter Jaci caballero MD Work Phone: [facility] Comment on above: Patient Update; FYI- No Action Needed Start: 11-14-2022 Non-patient / Non-visit Dr. Jimi Arroyo Work Phone: [facility] Start: 11-13-2022 Non-patient / Non-visit Dr. Jimi Arroyo Work Phone: [facility] Start: 11-13-2022 End: 11-13-2022 Non-patient / Non-visit Dr. Jaci Arroyo Work Phone: [facility] Start: 11-12-2022 Non-patient / Non-visit Dr. Jimi Arroyo Work Phone: [facility] Start: 11-11-2022 End: 11-15-2022 Evaluation and management of inpatient Dr. Jaci Arroyo Work Phone: [facility] Start: 11-09-2022 Telephone encounter Desmond donaldson PA-C Work Phone: Urology Comment on above: Patient Question Start: 11-08-2022 Telephone encounter Jaci caballero MD Work Phone: [facility] Comment on above: Patient Update Start: 11-06-2022 Refill Jessie Harmon APRN.CNP Work Phone: [facility] Comment on above: Refill Request Start: 11-06-2022 Telephone encounter Jaci caballero MD Work Phone: [facility] Comment on above: Physical Therapy Laura n of Care Start: 11-05-2022 Telephone encounter Jaci caballero MD Work Phone: [facility] Comment on above: Patient Update (Puls e Out of Parameters) ST plan of care Start: 11-01-2022 Telephone encounter Jaci caballero MD Work Phone: [facility] Comment on above: [facility] Speech (Heart rate out of parameter/) Start: 10-30-2022 Telephone encounter Jaci caballero MD Work Phone: [facility] Comment on above: [facility] OT Plan of Ca re Start: 10-22-2022 Telephone encounter Desmond donaldson PA-C Work Phone: Urology Comment on above: Home Health record Orders Start: 10-15-2022 End: 10-15-2022 Patient encounter procedure Robin Johansen MD Work Phone: Cardiology Comment on above: Coronary artery dise ase involving un[place] coronary artery of unal[place]et heart without angina pectoris (Primary Dx); Paroxysmal atrial fibrillation (HCC); Essential hypertension; Mixed hyperlipidemia; Bradycardia; Occlusion of left carotid artery Start: 10-15-2022 Telephone encounter Robin Johansen MD Work Phone: Cardiology Comment on above: Appointment (Appoint ment 10/15/22) Results (Urine cultu re); Orders Start: 10-11-2022 Telephone encounter Jaci caballero MD Work Phone: [facility] [place] Comment on above: Orders Start: 10-05-2022 Telephone encounter Jaci caballero MD Work Phone: [facility] [place] Comment on above: Patient Update Orders Start: 10-04-2022 Telephone encounter Jaci caballero MD Work Phone: [facility] [place] Comment on above: [facility] for [facility] Start: 10-02-2022 Telephone encounter Anushka Thomas APRN.CNP Work Phone: [facility] Cardiology Comment on above: Results Start: 09-28-2022 Telephone encounter Robin Johansen MD Work Phone: Cardiology Comment on above: Results Start: 09-18-2022 End: 09-18-[address] Jaci Arroyo Work Phone: [facility] Start: 09-17-2022 Telephone encounter Desmond donaldson PA-C Work Phone: Urology Comment on above: Results; Orders Patient Update Start: 09-15-2022 End: 09-15-[address] Jaci Arroyo Work Phone: [facility] Start: 09-13-2022 Telephone encounter Jaci caballero MD Work Phone: Family [facility] [place] Comment on above: [facility] requesting records Start: 09-10-2022 Refill Jaci qiu MD Work Phone: Family [facility] [place] Comment on above: Patient Update Start: 09-07-2022 End: 09-10-2022 ambulatory Jaci Arroyo MD Work Phone: Family [facility] [place] Comment on above: Aphasia as late effe ct of cerebrovascular accident (Primary Dx); Chronic insomnia; Right hemiplegia (HCC); Paroxysmal atrial fibrillation (HCC); Essential hypertension; Anxiety Start: 09-07-2022 End: 09-10-2022 Telemedicine consultation with patient Jaci Arroyo MD Work Phone: [facility] [place] Start: 09-06-2022 Telephone encounter Robin Johansen MD Work Phone: [facility] Cardiology [place] Comment on above: 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 - O ther (Having BMP completed) Patient Update Start: 09-03-2022 Telephone encounter Dania Aj MD Work Phone: Neurology Comment on above: Orders Start: 09-03-2022 End: 09-03-2022 Patient encounter procedure Robin Johansen MD Work Phone: Cardiology Comment on above: Coronary artery dise ase involving [place] coronary artery of [place] heart without angina pectoris (Primary Dx); Essential hypertension; Hyperlipidemia, unspecified hyperlipidemia type; Occlusion of left carotid artery Start: 08-30-2022 Telephone encounter Jaci caballero MD Work Phone: [facility] [place] Comment on above: Patient Update Start: 08-29-2022 Telephone encounter Jaci caballero MD Work Phone: [facility] [place] Comment on above: Patient Update Start: 08-23-2022 Telephone encounter Desmond donaldson PA-C Work Phone: [facility] Comment on above: Appointment Start: 08-22-2022 End: 08-22-[address] Jaci Arroyo [facility]: [facility] [place] Start: 08-21-2022 End: 08-21-2022 Patient encounter procedure Desmond Ambriz PA-C Work Phone: Urology Comment on above: Acute cystitis witho ut hematuria (Primary Dx); Balanitis Start: 08-20-2022 Telephone encounter Jaci caballero MD Work Phone: [facility] Comment on above: insurance not covere d Start: 08-17-2022 Non-patient / Non-visit Dr. Jimi Arroyo Work Phone: [facility] Start: 08-16-2022 Refill Jaci qiu MD Work Phone: [address] [place] [address] Comment on above: Refill Request Urology referral Start: 08-16-2022 Non-patient / Non-visit Dr. Jimi Arroyo Work Phone: [facility] Start: 08-16-2022 End: 08-17-2022 Evaluation and management of inpatient Dr. Jaci Arroyo [facility] Start: 08-16-2022 End: 08-17-[address] Jaci Arroyo Work Phone: [facility] Work Phone: Start: 08-08-2022 Telephone encounter Robin Johansen MD Work Phone: Cardiology Comment on above: Patient Question Start: 08-07-2022 Telephone encounter Jaci caballero MD Work Phone: [facility] Comment on above: [facility] re verbal order Start: 07-27-2022 Telephone encounter Jaci caballero MD Work Phone: [facility] Comment on above: Order request for IS Start: 07-24-2022 Telephone encounter Jaci caballero MD Work Phone: [facility] Comment on above: FYI-No Action Needed Start: 07-16-2022 Telephone encounter Jaci caballero MD Work Phone: [facility] Comment on above: Patient Update Start: 07-04-2022 End: 07-04-2022 ambulatory Jessie Harmon APRN.LAUNDRY OPERATOR WASH ROOM Work Phone: [facility] Comment on above: Aphasia as late effe ct of cerebrovascular accident (Primary Dx); DARON (obstructive sleep apnea); Chronic insomnia Start: 07-04-2022 End: 07-04-2022 Telemedicine consultation with patient Jessie Harmon APRN.LAUNDRY OPERATOR WASH ROOM Work Phone: [facility] [place] Start: 06-21-2022 Non-patient / Non-visit Dr. Jimi Arroyo Work Phone: [facility] Start: 06-19-2022 End: 06-19-[address] Jaci Arroyo Work Phone: [facility] Work Phone: Start: 06-19-2022 End: 06-19-[address] Jaci Arroyo Work Phone: [facility]-Pulmonary Services/Neurology Start: 06-08-2022 Refill Jaci qiu MD Work Phone: [facility] Comment on above: Refill Request Start: 05-29-2022 End: 05-29-[address] Jaci Arroyo Work Phone: [facility]-Pulmonary Medicine [facility] Start: 05-25-2022 Telephone encounter Jaci caballero MD Work Phone: [facility] Comment on above: report missed visit Start: 05-10-2022 End: 05-10-2022 ambulatory Jaci Arroyo MD Work Phone: [facility] Comment on above: Aphasia as late effe ct of cerebrovascular accident (Primary Dx); Right hemiplegia (HCC); Cerebrovascular accident (CVA), unspecified mechanism (HCC); Coronary artery disease involving [place] coronary artery of [place] heart without angina pectoris; Essential hypertension; Paroxysmal atrial fibrillation (HCC); Anxiety; Dysphasia Start: 05-10-2022 End: 05-10-2022 Telemedicine consultation with patient Jaci Arroyo MD Work Phone: [facility] Start: 05-07-2022 End: 05-07-2022 ambulatory [facility] Work Phone: Start: 05-07-2022 End: 05-07-2022 Patient encounter procedure [facility] Start: 05-07-2022 Telephone encounter Jaci caballero MD Work Phone: [facility] [place] Comment on above: Opened In Error fax orders Start: 05-06-2022 Refill Mariano Beckman APRN.CNP Work Phone: [facility] [place] Comment on above: Refill Request Start: 05-01-2022 Telephone encounter Jaci caballero MD Work Phone: [facility] [place] Comment on above: ST Order Request Start: 04-19-2022 End: 04-19-2022 Patient encounter procedure Sabiha Stevens MD Work Phone: [facility] Cardiac, Thoracic[facility]ascular Specialties Comment on above: Peripheral vascular disease, unspecified (HCC) (Primary Dx); Foot drop, right Start: 04-13-2022 Telephone encounter Jaci caballero MD Work Phone: [facility] [place] Comment on above: Patient Question Start: 04-11-2022 Telephone encounter Jaci caballero MD Work Phone: [facility] [place] Comment on above: medication question Start: 03-22-2022 Telephone encounter Jaci caballero MD Work Phone: [facility] [place] Comment on above: Patient Update Start: 03-09-2022 Telephone encounter Jaci caballero MD Work Phone: [facility] [place] Comment on above: Home Health Update/R equest Start: 03-05-2022 Telephone encounter Sabiha Stevens MD Work Phone: [facility] Cardiac, Thoracic [facility] Specialties Comment on above: Appointment ([place] [facility] Patient) Colon Michel Start: 02-19-2022 Refill Jaci qiu MD Work Phone: [facility] [place] Comment on above: Refill Request Start: 01-31-2022 Refill Jaci qiu MD Work Phone: [facility] [place] Comment on above: Refill Request Start: 01-24-2022 End: 01-24-2022 Patient encounter procedure Jaci Arroyo MD Work Phone: [facility] [place] Comment on above: Fungal dermatitis (P rimary Dx) Start: 01-18-2022 Telephone encounter Jaci caballero MD Work Phone: [facility] [place] Comment on above: missed home health v isit Start: 01-02-2022 Telephone encounter Jaci caballero MD Work Phone: [facility] [place] Comment on above: Insurance Authorizat ion Start: 12-06-2021 Telephone encounter Jorge Cardoso MD Work Phone: General Surgery Comment on above: Rescheduling Appoint ment (EGD and colonoscopy) Start: 12-01-2021 Telephone encounter Jaci caballero MD Work Phone: [facility] [place] Comment on above: home health calling for verbal order Start: 11-22-2021 Telephone encounter Jaci caballero MD Work Phone: [facility] [place] Comment on above: Orders Start: 11-11-2021 Non-patient / Non-visit Dr. Jimi Arroyo Work Phone: [facility] Start: 11-10-2021 End: 11-10-[address] Jaci Arroyo Work Phone: [facility]-Pulmonary Services/Neurology Start: 11-07-2021 End: 11-07-2021 ambulatory Jaci Arroyo MD Work Phone: [facility] [place] Comment on above: Right hemiplegia (HC C) (Primary Dx); Paroxysmal atrial fibrillation (HCC); Coronary artery disease involving [place] coronary artery of [place] heart without angina pectoris; Essential hypertension; Hyperlipidemia, unspecified hyperlipidemia type; Cerebrovascular accident (CVA), unspecified mechanism (HCC); Chronic insomnia; Anxiety; Shortness of breath Start: 11-07-2021 End: 11-07-2021 Telemedicine consultation with patient Jaci Arroyo MD Work Phone: [facility] [place] Start: 10-31-2021 Telephone encounter Jaci caballero MD Work Phone: [facility] [place] Comment on above: Patient Update Start: 10-06-2021 End: 10-06-[address] Jaci Arroyo Work Phone: [facility]-Pulmonary Medicine [facility] Start: 10-04-2021 Telephone encounter Jorge Cardoso MD Work Phone: General Surgery Comment on above: 12-25-2021 Colon EGD Michel Start: 09-26-2021 End: 09-26-[address] Jaci Arroyo Work Phone: [facility]-Sleep Lab Start: 08-30-[address] Jaci Arroyo Work Phone: [facility] Start: 08-23-2021 Non-patient / Non-visit Dr. Jimi Arroyo Work Phone: [facility] Start: 08-22-2021 Non-patient / Non-visit Dr. Jimi Arroyo Work Phone: [facility] Start: 08-21-2021 Non-patient / Non-visit Dr. Jimi Arroyo Work Phone: [facility] Start: 08-20-2021 Non-patient / Non-visit Dr. Jimi Arroyo Work Phone: [facility] Start: 08-19-2021 Non-patient / Non-visit Dr. Jimi Arroyo Work Phone: [facility] Start: 08-18-2021 Non-patient / Non-visit Dr. Jimi Arroyo Work Phone: [facility] Start: 08-17-2021 Non-patient / Non-visit Dr. Jimi Arroyo Work Phone: [facility] Start: 08-17-2021 Non-patient / Non-visit Dr. Jimi Arroyo Work Phone: [facility] Start: 08-16-2021 End: 08-23-2021 Evaluation and management of inpatient Dr. Jaci Arroyo Work Phone: [facility]-Progressive Care Unit Start: 01-23-2019 Patient encounter procedure DAVID AVILA Facility:[facility] Start: 07-11-2018 End: 07-11-2018 Patient encounter procedure DAVID AVILA Facility:[facility] Start: 02-18-2018 Patient encounter procedure KAREEM SALDANA Facility:[facility] Start: 01-10-2018 End: 01-10-2018 Patient encounter procedure LISA NAYLOR Facility:[facility] Start: 12-03-2017 End: 12-03-2017 Evaluation and management of inpatient FIRAS AL-ALI Facility:[facility] Procedures Date Procedure Procedure Detail Performing [...] Jorge Cardoso MD Work Phone: Start: 06-11-2023 [employer] COVID-19 VACCINE (2022- SEASON) AGE 12+ YR Jaci Arroyo MD Work Phone: Start: 06-06-2023 Lipid 1996 panel - Serum or Plasma Mariano Karuna NEW GRAD RN.LAUNDRY OPERATOR WASH ROOM Work Phone: Start: 05-22-2023 CT of chest [...] panel - Serum or Plasma Mariano Karuna NEW GRAD RN.LAUNDRY OPERATOR WASH ROOM Work Phone: Start: 12-04-2022 Radiologic exam chest [...] artery bypass grafts x 5 KYLIE BLUM APRN-LAUNDRY OPERATOR WASH ROOM H/O: tracheostomy Tracheostomy s tatus (HCC) Jaci [...] DTaP,Tdap,Td Vaccine (2 - Td or Tdap) [facility] Start: 04-02-2029 Lipid panel Lipid Screening [facility] Start: 11-24-2028 Lipid panel Lipid Screening [facility] Start: 06-19-2028 Colorectal Cancer Screening Colorectal Cancer Screening [facility] Start: 06-19-2028 Screening for malignant neoplasm of colon [facility] Start: 06-19-2028 Sigmoidoscopy Sigmoidoscopy [facility] Start: 06-06-2028 Lipid 1996 panel - Serum or Plasma Lipid Screening [facility] Start: 06-06-2028 Lipid panel Lipid Screening [facility] Start: 12-14-2027 Lipid 1996 panel - Serum or Plasma Lipid Screening [facility] Start: 12-14-2027 LIPID SCREEN LIPID SCREEN [facility] Start: 04-02-2027 Diabetes Screening Diabetes Screening [facility] Start: 11-24-2026 Diabetes Screening Diabetes Screening [facility] Start: 10-02-2026 LIPID SCREEN LIPID SCREEN [facility] Start: 07-15-2026 Diabetes Screening Diabetes Screening [facility] Start: 06-06-2026 Diabetes Screening Diabetes Screening [facility] Start: 05-22-2026 Diabetes Screening Diabetes Screening [facility] Start: 05-09-2026 Diabetes Screening Diabetes Screening [facility] Start: 03-02-2026 Annual PCP Team Chronic Disease Visit Annual PCP Team Chronic Disease Visit [facility] Start: 02-26-2026 DIABETES SCREEN DIABETES SCREEN [facility] Start: 02-26-2026 Diabetes Screening Diabetes Screening [facility] Start: 02-18-2026 DIABETES SCREEN DIABETES SCREEN [facility] Start: 01-14-2026 Annual PCP Team Chronic Disease Visit Annual PCP Team Chronic Disease Visit [facility] Start: 12-13-2025 DIABETES SCREEN DIABETES SCREEN [facility] Start: 12-03-2025 Annual PCP Team Chronic Disease Visit Annual PCP Team Chronic Disease Visit [facility] Start: 12-03-2025 BP Controlled (<130/80) BP Controlled (<130/80) [facility] Start: 11-10-2025 BP Controlled (<130/80) BP Controlled (<130/80) [facility] Start: 11-08-2025 End: 11-08-2025 Patient encounter procedure 11/08/2025 2:20 PM EDT Office Visit Cardiology [address] [place] [address] Robin Johansen MD [address] [address] follow up Cardiology Comment on above: follow up Start: 11-02-2025 End: 11-02-2025 Patient encounter procedure Vasculary Surgery Comment on above: Dx: 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]; Subclavian artery stenosis, left [I77.1] follow up Start: 10-07-2025 Annual PCP Team Chronic Disease Visit Annual PCP Team Chronic Disease Visit [facility] Start: 10-06-2025 BP Controlled (<130/80) BP Controlled (<130/80) [facility] Start: 10-01-2025 DIABETES SCREEN DIABETES SCREEN [facility] Start: 09-27-2025 DIABETES SCREEN DIABETES SCREEN [facility] Start: 09-03-2025 BP Controlled (<130/80) BP Controlled (<130/80) [facility] Start: 07-13-2025 Annual PCP Team Chronic Disease Visit Annual PCP Team Chronic Disease Visit [facility] Start: 07-13-2025 BP Controlled (<130/80) BP Controlled (<130/80) [facility] Start: 07-05-2025 End: 07-05-2025 ambulatory 07/05/2025 2:45 PM EST [facility] Neurology [address] [place] [address] Phnog Wilhelm MD [address] [place] [address] 6 mo fu Neurology Comment on above: 6 mo fu Start: 07-01-2025 Annual PCP Team Chronic Disease Visit Annual PCP Team Chronic Disease Visit [facility] Start: 07-01-2025 BP Controlled (<130/80) BP Controlled (<130/80) [facility] Start: 05-20-2025 BP Controlled (<130/80) BP Controlled (<130/80) [facility] Start: 04-22-2025 End: 04-22-2025 Follow-up encounter 04/22/2025 2:20 PM EDT [facility] [place] [address] [place], [place] [id number] Jaci Arroyo MD [address] [place], [place] [id number] 3 month follow up [facility] [place] Comment on above: 3 month follow up Start: 04-19-2025 End: 04-19-2025 Patient encounter procedure 04/19/2025 2:40 PM EDT Office Visit [facility] [place] [address] [place] [address] Jaci Arroyo MD [address] [place], [place] [id number] 6 month follow up [facility] [place] Comment on above: 6 month follow up Start: 04-16-2025 End: 07-16-2025 CBC panel - Blood by Automated count COMPLETE BLOOD COUNT Lab Routine Essential hypertension Expected: 04/16/2025 (Approximate), Expires: 07/16/2025 [facility] Comment on above: Expected: 04/16/2025 (Approximate), Expi res: 07/16/2025 Start: 04-16-2025 End: 07-16-2025 Comprehensive metabolic 2000 panel - Serum or Plasma COMPREHENSIVE METABOLIC PANEL Lab Routine Hyperlipidemia, unspecified hyperlipidemia type Essential hypertension Expected: 04/16/2025 (Approximate), Expires: 07/16/2025 [facility] Work Phone: Comment on above: Expected: 04/16/2025 (Approximate), Expi res: 07/16/2025 Start: 04-16-2025 End: 07-16-2025 Lipid 1996 panel - Serum or Plasma LIPID PANEL, FASTING Lab Routine Hyperlipidemia, unspecified hyperlipidemia type Essential hypertension Expected: 04/16/2025 (Approximate), Expires: 07/16/2025 [facility] Comment on above: Expected: 04/16/2025 (Approximate), Expi res: 07/16/2025 Start: 04-16-2025 End: 07-16-2025 Thyrotropin [Units/volume] in Serum or Plasma THYROID STIMULATING HORMONE Lab Routine Essential hypertension Moderate recurrent major depression (HCC) CVA, old, hemiparesis (HCC) Expected: 04/16/2025 (Approximate), Expires: 07/16/2025 [facility] Comment on above: Expected: 04/16/2025 (Approximate), Expi res: 07/16/2025 Start: 04-13-2025 End: 04-13-2025 Patient encounter procedure 04/13/2025 3:00 PM EDT Office Visit Family Dennys Napoles [address] [place] [address] Jaci Arroyo MD [address] [place], [place] [id number] 6 month follow up Family [facility]enn[facility] Comment on above: 6 month follow up Start: 04-09-2025 End: 04-09-2025 Patient encounter procedure 04/09/2025 11:00 AM EDT Office Visit Pulmonary Medicine [address] [address] Eliana Peng, NEW GRAD RN.LAUNDRY OPERATOR WASH ROOM [address] [place] [address] 6 month f/u (michel location per Dr. Johansen) Pulmonary Medicine Comment on above: 6 month f/u (michel location per Dr. Bj lilly) Start: 04-09-2025 End: 04-09-2025 ambulatory Pulmonary Medicine Comment on above: COPD, moderate (HCC) [J44.9] Start: 04-08-2025 End: 04-08-2025 Patient encounter procedure 04/08/2025 2:15 PM EDT Office Visit Pulmonary Medicine [address] [place], [place] [phone] Kimo Mcgrath MD [address] [place], [place] [phone] COPD, moderate (HCC) [J44.9] Pulmonary Medicine Comment on above: COPD, moderate (HCC) [J44.9] Start: 04-08-2025 End: 04-08-2025 ambulatory Pulmonary Lab Comment on above: COPD, moderate (HCC) [J44.9] Start: 04-05-2025 Influenza vaccination Influenza Vaccine (#1) [facility] Start: 04-03-2025 Annual PCP Team Chronic Disease Visit Annual PCP Team Chronic Disease Visit [facility] Start: 04-03-2025 BP Controlled (<130/80) BP Controlled (<130/80) [facility] in Start: 04-02-2025 Creatinine measurement Serum Creatinine [facility] Start: 04-02-2025 Hepatitis B surface antibody level LDL Cholesterol [facility] Start: 03-23-2025 BP Controlled (<130/80) BP Controlled (<130/80) [facility] in Start: 03-19-2025 DIABETES SCREEN DIABETES SCREEN [facility] Start: 03-02-2025 End: 03-02-2025 Patient encounter procedure 03/02/2025 1:00 PM EDT Office Visit Family [facility] [place] [address] [facility], [place] [phone] Mariano Beckman APRN.LAUNDRY OPERATOR WASH ROOM [address] [place] [address] Ear Irrigation prior to Hearing Testing [facility] [place] Comment on above: Ear Irrigation prior to Hearing Testing Start: 02-23-2025 BP Controlled (<130/80) BP Controlled (<130/80) [facility] in Start: 02-01-2025 End: 02-01-2025 Patient encounter procedure 02/01/2025 9:40 AM EDT Office Visit Cardiology [address] [place] [address] Robin Johansen MD [address] [place] [address] 9 mo follow up R/S from 11/23 Cardiology Comment on above: 9 mo follow up R/S from 11/23 Start: 01-14-2025 End: 01-14-2025 Patient encounter procedure 01/14/2025 2:20 PM EDT Office Visit [facility] [place] [address] [place] [address] Jaci Arroyo MD [address] [place] [address] 01/13, respite stay, having frequent falls [facility] [place] Comment on above: discharge [address] 01/13, respite stay, [place] ving frequent falls Start: 01-05-2025 End: 01-05-2025 Patient encounter procedure 01/05/2025 10:30 AM EDT Office Visit Neurology [address] [place] [address] Seizure (HCC) [R56.9] Neurology Comment on above: Seizure (HCC) [R56.9] Start: 12-31-2024 End: 04-01-2025 PREGABALIN PREGABALIN Lab Routine Seizure (HCC) Expected: 12/31/2024, Expires: 04/01/2025 [facility] Work Phone: Comment on above: Expected: 12/31/2024, Expires: Start: 12-31-2024 End: 12-31-2024 ambulatory 12/31/2024 1:30 PM EDT [facility] Neurology [address] [place], [place] [phone] Joycelyn Woodruff MD [address] [place] [address] f/u Neurology Comment on above: f/u Start: 12-30-2024 Annual PCP Team Chronic Disease Visit Annual PCP Team Chronic Disease Visit [facility] Start: 12-30-2024 BP Controlled (<130/80) BP Controlled (<130/80) [facility] Start: 12-30-2024 Depression Screening Depression Screening [facility] Start: 12-30-2024 Hepatitis C screening Hepatitis C Screening [facility] Comment on above: Postponed from 1973 (Declined at t his time) Start: 12-15-2024 BP Controlled (<130/80) BP Controlled (<130/80) [facility] Start: 12-03-2024 End: 12-03-2024 Patient encounter procedure 12/03/2024 1:20 PM EDT Office Visit [facility] [place] [address] [place], [place] [phone] Consuelo Farooq APRN.[facility] [address] [place] [address] sinus congestion, deep cough x 1 week [facility] [place] Comment on above: sinus congestion, deep cough x 1 week Start: 11-24-2024 Creatinine measurement Serum Creatinine [facility] Start: 11-24-2024 Hepatitis B surface antibody level LDL Cholesterol [facility] Start: 11-23-2024 End: 11-23-2024 Patient encounter procedure Cardiology Comment on above: 9 mo follow up Start: 11-10-2024 End: 11-10-2024 Patient encounter procedure Vasculary Surgery Comment on above: Carotid carotid US follow up Start: 11-05-2024 End: 11-05-2024 Patient encounter procedure 11/05/2024 1:00 PM EDT Office Visit Neurology [address] [place], [place] [phone] Joycelyn Woodruff MD [address] [place] [address] follow up Neurology Comment on above: follow up Start: 11-02-2024 End: 11-02-2024 Patient encounter procedure 11/02/2024 1:15 PM EDT Appointment [facility] [address] [place] [address] Ashly Strak, DO [address] [place] [address] colon keep with walker [facility] Comment on above: colon keep with walker Start: 10-27-2024 End: 10-27-2024 Patient encounter procedure 10/27/2024 11:00 AM EDT Office Visit Vascular Surgery [address] [place] [address] Deanne Cruz, DO [address] [place] [address] follow up after testing Vascular Surgery Comment on above: follow up after testing Start: 10-07-2024 End: 10-07-2024 Patient encounter procedure 10/07/2024 3:00 PM EST Office Visit Family Medicine [place] [address] [place] [address] Jessie Harmon APRN.LAUNDRY OPERATOR WASH ROOM [address] [place] [address] Discharge from [facility] 10/03/24 [place] Comment on above: Discharge from [facility] 10/03/24 Start: 10-06-2024 End: 10-06-2024 Patient encounter procedure 10/06/2024 1:30 PM EST Office Visit Pulmonary Medicine [address] [place] [address] Earl Elise APRN.LAUNDRY OPERATOR WASH ROOM [address] [place] [address] 6 MO OV Pulmonary Medicine Comment on above: 6 MO OV Start: 10-05-2024 End: 10-05-2024 Patient encounter procedure 10/05/2024 2:00 PM EST Office Visit Family Medicine [place] [address] [place], [place] [phone] Jaci Arroyo MD [address] [place], [place] [phone] hosp follow up [facility] 09/15-09/18. [place], physical therapy Family Medicine [place] Comment on above: hosp follow up [facility] 09/15-09/05 4. [place], physical therapy Start: 10-02-2024 DIABETES SCREEN DIABETES SCREEN [facility] Start: 10-01-2024 BP Controlled (<130/80) BP Controlled (<130/80) [facility] inic Start: 10-01-2024 End: 10-01-2024 US Upper extremity artery US ARM ARTERIAL UNL VAS LAB Vascular Lab Routine Subclavian artery stenosis, left (HCC) Expected: 10/01/2024, Expires: 10/01/2024 [facility] Work Phone: Comment on above: Expected: 10/01/2024, Expires: Start: 10-01-2024 End: 10-01-2024 Follow-up encounter 10/01/2024 1:00 PM EST [facility] Neurology [address] [place] [address] Joycelyn Woodruff MD [address] [place] [address] follow up Neurology Comment on above: follow up Start: 09-27-2024 Annual PCP Team Chronic Disease Visit Annual PCP Team Chronic Disease Visit [facility] Start: 09-27-2024 BP Controlled (<130/80) BP Controlled (<130/80) [facility] inic Start: 09-25-2024 End: 09-25-2024 ambulatory 09/25/2024 1:30 PM EST [facility] Pulmonary Medicine [address] [place], [place] [phone] Earl Elise APRN.LAUNDRY OPERATOR WASH ROOM [address] [facility] Desk [address] [place] [address] 6 MO OV Pulmonary Medicine Comment on above: 6 MO OV Start: 09-25-2024 End: 09-25-2024 Patient encounter procedure 09/25/2024 1:30 PM EST Office Visit Pulmonary Medicine [address] [place] [address] Earl Elise APRN.LAUNDRY OPERATOR WASH ROOM [address] [place] [address] 6 MO OV Pulmonary Medicine Comment on above: 6 MO OV Start: 09-24-2024 End: 09-24-2024 Patient encounter procedure 09/24/2024 2:45 PM EST Office Visit Pulmonary Medicine [address] [place] [address] Kimo Mcgrath MD [address] [place] [address] 6 MO OV Pulmonary Medicine Comment on [...] 09-16-2024 BP Controlled (<130/80) BP Controlled (<130/80) [facility] Start: 09-14-2024 End: 09-14-2024 Patient encounter procedure 09/14/2024 9:30 AM EST Office Visit Pulmonary Medicine [address] [place] [address] Kimo Mcgrath MD [address] [place] [address] 6 MO OV Pulmonary Medicine Comment on above: 6 MO OV Start: 09-08-2024 End: 09-08-2024 Patient encounter procedure Vasculary Surgery Comment on above: Occlusion of left carotid artery [I65.22 ] Subclavian artery st enosis, left (HCC) [I77.1] follow up after test ing Start: 09-03-2024 End: 09-03-2024 Patient encounter procedure 09/03/2024 2:00 PM EST Office Visit Neurology [address] [place] [address] Joycelyn Woodruff MD [address] [place] [address] NEW CONSULT - PENDING VEEG ORDERS; DO NOT CANCEL OR RESCHEDULE, TRANSFER TO [facility] Neurology Comment on above: NEW CONSULT - PENDING VEEG ORDERS; DO NO T CANCEL OR RESCHEDULE, TRANSFER TO [facility] Start: 08-13-2024 End: 08-13-2024 Patient encounter procedure 08/13/2024 3:30 PM EST Office Visit Neurology [address] [place] [address] Joycelyn Woodruff MD [address] [place] [address] NEW CONSULT - PENDING VEEG ORDERS; DO NOT CANCEL OR RESCHEDULE, TRANSFER TO [facility] Neurology Comment on above: NEW CONSULT - PENDING VEEG ORDERS; DO NO T CANCEL OR RESCHEDULE, TRANSFER TO [facility] Start: 08-05-2024 Advance Directive Discussion Advance Directive Discussion [facility] Start: 08-05-2024 Medicare Advantage Annual Wellness Visit Medicare Advantage Annual Wellness Visit [facility] Start: 08-04-2024 End: 08-04-2024 Patient encounter procedure 08/04/2024 12:45 PM EST Office Visit Neurology [address] [place], [place] [phone] Michelle Webb PA-C [address] [place], [place] [phone] [facility] f/u Pnemonia/ seizures Neurology Comment on above: [facility] f/u Pnemonia/ seizures Start: 07-24-2024 End: 07-24-2024 Patient encounter procedure 07/24/2024 11:00 AM EST Office Visit PHYSICAL MEDICINE & REHAB [address] [address] Jessie Gardner APRN.LAUNDRY OPERATOR WASH ROOM [address] [place] [address] Follow up [facility] Comment on above: Follow up Start: 07-21-2024 Covid-19 Vaccine () Covid-19 Vaccine () [facility] Start: 07-15-2024 BP Controlled (<130/80) BP Controlled (<130/80) [facility] in Start: 07-15-2024 Complete blood count Hemoglobin/Hematocrit [facility] Start: 07-15-2024 Creatinine measurement Serum Creatinine [facility] Start: 07-15-2024 Hemoglobin/Hematocrit Hemoglobin/Hematocrit [facility] Start: 07-15-2024 Serum Creatinine Serum Creatinine [facility] Start: 07-13-2024 End: 10-12-2024 Comprehensive metabolic 2000 panel - Serum or Plasma COMPREHENSIVE METABOLIC PANEL Lab Routine Seizure disorder (HCC) Expected: 07/13/2024, Expires: 10/12/2024 [facility] Work Phone: Comment on above: Expected: [...] 07-08-2024 BP Controlled (<130/80) BP Controlled (<130/80) [facility] inic Start: 07-07-2024 End: 07-07-2024 Patient encounter procedure 07/07/2024 4:15 PM EST Office Visit Neurology [address] [place], [place] [phone] Michelle Webb PA-C [address] [place] [address] [facility] follow up see phone note from Dr Aj Neurology Comment on above: [facility] follow up see rosa ne note from Dr Aj Start: 07-06-2024 End: 07-06-2024 ambulatory 07/06/2024 2:30 PM [facility] [address] [place] [phone] Zac Garza APRN.[facility] [address] [place] [phone] new Cerebral aneurysm [ Endovascular Center Comment on above: new Cerebral aneurysm [ Start: 07-01-2024 End: 07-01-2024 Patient encounter procedure 07/01/2024 12:40 PM EST Office Visit PHYSICAL MEDICINE & REHAB [address] [address] Jessie Gardner APRN.LAUNDRY OPERATOR WASH ROOM [address] [place] [address] Follow up [facility] Comment on above: Follow up Start: 07-01-2024 End: 07-01-2024 Patient encounter procedure 07/01/2024 10:20 AM EST Office Visit Family Medicine [place] [address] [place], [place] [phone] Jessie Harmon APRN.LAUNDRY OPERATOR WASH ROOM [address] [place], [place] [phone] [facility] ER again for breakthrough seizures, [facility] ER on 06/26 and diagnosed with Pneumonia was admitted and d/c 06/28 Family Medicine [place] Comment on above: [facility] ER again for breakthrough seizures, [facility] ER on 06/26 and diagnosed with Pneumonia was admitted and d/c 06/28 Start: 06-29-2024 End: 06-29-2024 Patient encounter procedure [facility] Endoscopy Comment on above: colon keep with walker Start: 06-26-2024 End: 06-26-2024 Patient encounter procedure 06/26/2024 2:00 PM EST Office Visit Neurology [address] [place] [address] Dania Aj Jr., MD [address] [facility] [address] [place] [phone] follow up after testing Neurology Comment on above: follow up after testing Start: 06-24-2024 End: 06-24-2024 Patient encounter procedure [facility] Endoscopy Comment on above: colon Start: 06-11-2024 Annual PCP Team Chronic Disease Visit Annual PCP Team Chronic Disease Visit [facility] Start: 06-11-2024 BP Controlled (<130/80) BP Controlled (<130/80) [facility] inic Start: 06-06-2024 Hepatitis B surface antibody level LDL Cholesterol [facility] Start: 06-06-2024 Serum Creatinine Serum Creatinine [facility] Start: 06-05-2024 End: 06-05-2024 ambulatory 06/05/2024 1:20 PM EDT [facility] PHYSICAL MEDICINE & REHAB [address] [address] Jessie Gardner, NEW GRAD RN.LAUNDRY OPERATOR WASH ROOM [address] [place] [address] History of stroke [Z86.73]; Spasticity [R25.2] [facility] Comment on above: History of stroke [Z86.73]; Spasticity [ R25.2] Start: 06-01-2024 End: 06-01-2024 ambulatory 06/01/2024 10:00 AM EDT [facility] NEUROLOGY [address] [facility] [address] [place] [address] Gloria Sawyer MD [address] [place], [place] [phone] Cerebral Aneurysm NEUROLOGY Comment on above: Cerebral Aneurysm Start: 05-25-2024 End: 05-25-2024 Patient encounter procedure 05/25/2024 2:00 PM EDT Office Visit PHYSICAL MEDICINE & REHAB [address] [address] Jessie Gardner APRN.LAUNDRY OPERATOR WASH ROOM [address] [place] [address] History of stroke [Z86.73]; Spasticity [R25.2] [facility] Comment on above: History of stroke [Z86.73]; Spasticity [ R25.2] Start: 05-22-2024 Serum Creatinine Serum Creatinine [facility] Start: 05-21-2024 BP Controlled (<130/80) BP Controlled (<130/80) [facility] in Start: 05-20-2024 End: 05-20-2024 Patient encounter procedure 05/20/2024 9:30 AM EDT Office Visit Neurology [address] [place] [address] Michelle Webb PA-C [address] [place], [place] [phone] follow up after testing 8.5.24 glenny WJN- testing ordered MRI, MRA, EEG Neurology Comment on above: follow up after testing 8.5.24 glenny WJN- testing ordered MRI, MRA, EEG Start: 05-09-2024 Hemoglobin/Hematocrit Hemoglobin/Hematocrit [facility] Start: 05-09-2024 Serum Creatinine Serum Creatinine [facility] Start: 05-08-2024 End: 05-08-2024 Patient encounter procedure [...] Visit Annual PCP Team Chronic Disease Visit [facility] Start: 04-19-2024 BP Controlled (<130/80) BP Controlled (<130/80) [facility]ic Start: 04-10-2024 Colonoscopy COLONOSCOPY [facility] Start: 04-10-2024 COLORECTAL CANCER SCREENING COLORECTAL CANCER SCREENING [facility] Start: 04-10-2024 Screening for malignant neoplasm of colon Colonoscopy [facility] Start: 04-08-2024 End: 04-08-2024 Patient encounter procedure 04/08/2024 12:45 PM EDT Appointment [facility] [address] [place] [id number] History of stroke [Z86.73]; Left carotid artery [...] 04-05-2024 BP CONTROLLED (<130/80) BP CONTROLLED (<130/80) [facility] Start: 04-05-2024 Covid-19 Vaccine ( season) Covid-19 Vaccine ( season) [facility] Start: 04-05-2024 Covid-19 Vaccine ( season) Covid-19 Vaccine ( season) [facility] Start: 04-05-2024 Influenza vaccination Influenza Vaccine (#1) [facility] Start: 04-03-2024 End: 04-03-2024 Patient encounter procedure 04/03/2024 4:20 PM EDT Office Visit Family Dennys [place] [address] [place] [phone] Jaci Arroyo MD [address] [place] [phone] 3 mo f/u Family Dennys [place] Comment on above: 3 mo f/u Start: 04-01-2024 End: 07-01-2024 Comprehensive metabolic 2000 panel - Serum or Plasma COMPREHENSIVE METABOLIC PANEL Lab Routine Hypertension, essential Stage 3a chronic kidney disease (HCC) Elevated glucose Hyperlipidemia, unspecified hyperlipidemia type Expected: 04/01/2024 (Approximate), Expires: 07/01/2024 [facility] Work Phone: Comment on above: Expected: 04/01/2024 (Approximate), Expi res: 07/01/2024 Start: 04-01-2024 End: 07-01-2024 Lipid 1996 panel - Serum or Plasma LIPID PANEL BASIC Lab Routine Hypertension, essential Elevated glucose Hyperlipidemia, unspecified hyperlipidemia type Expected: 04/01/2024 (Approximate), Expires: 07/01/2024 [facility] Comment on above: Expected: 04/01/2024 (Approximate), Expi res: 07/01/2024 Start: 03-23-2024 End: 03-23-2024 Patient encounter procedure 03/23/2024 2:45 PM EDT Office Visit Pulmonary Medicine [address] [place], [place] [phone] Kimo Mcgrath MD [address] [place] [address] 6 month follow up Pulmonary Medicine Comment on above: 6 month follow up Start: 03-21-2024 End: 06-20-2024 Ferritin [Mass/volume] in Serum or Plasma FERRITIN Lab Routine Low iron stores Expected: 03/21/2024 (Approximate), Expires: 06/20/2024 [facility] Work Phone: Comment on above: Expected: 03/21/2024 (Approximate), Expi res: 06/20/2024 Start: 03-21-2024 End: 06-20-2024 Iron and Iron binding capacity panel - Serum or Plasma IRON AND TIBC Lab Routine Low iron stores Expected: 03/21/2024 (Approximate), Expires: 06/20/2024 [facility] Comment on above: Expected: 03/21/2024 (Approximate), Expi res: 06/20/2024 Start: 03-12-2024 BP CONTROLLED (<130/80) BP CONTROLLED (<130/80) [facility] Start: 03-09-2024 End: 03-09-2024 Patient encounter procedure Neurology Comment on above: Consult H/O stroke Follow to sleep Neuro- h/o stroke Start: 03-07-2024 ANNUAL PCP TEAM CHRONIC DISEASE VISIT ANNUAL PCP TEAM CHRONIC DISEASE VISIT [facility] Start: 03-07-2024 BP CONTROLLED (<130/80) BP CONTROLLED (<130/80) [facility] Start: 03-02-2024 End: 03-02-2024 Patient encounter procedure 03/02/2024 3:00 PM EDT Office Visit Cardiology [address] [place] [phone] Robin Johansen MD [address] [place], [place] [phone] 6 month follow up Cardiology Comment on above: 6 month follow up Start: 03-02-2024 End: 06-01-2024 Thyrotropin [Units/volume] in Serum or Plasma THYROID STIMULATING HORMONE Lab Routine Paroxysmal atrial fibrillation (HCC) Expected: 03/02/2024, Expires: 06/01/2024 [facility] Work Phone: Comment on above: Expected: 03/02/2024, Expires: Start: 02-27-2024 ANNUAL PCP TEAM CHRONIC DISEASE VISIT ANNUAL PCP TEAM CHRONIC DISEASE VISIT [facility] Start: 02-27-2024 BP CONTROLLED (<130/80) BP CONTROLLED (<130/80) [facility] Start: 02-27-2024 SERUM CREATININE SERUM CREATININE [facility] Start: 02-24-2024 End: 02-24-2024 Patient encounter procedure 02/24/2024 3:45 PM EDT Office Visit General Surgery [address] [place] [phone] Lacy Lai MD [address] [place] [phone] repeat colonoscopy, last colonoscopy 04/10/23 with Walker, [...] 12/31/2023 2:20 PM EDT Office Visit Family [facility] [address] [place], [place] [phone] Jaci Arroyo MD [address] [place], [place] [address] 3 month follow up Family [facility] Comment on above: 3 month follow up Start: 12-31-2023 End: 12-31-2023 Patient encounter procedure 12/31/2023 12:30 PM EDT Office Visit General Surgery [address] [place], [place] [phone] Jorge Cardoso MD [address] [phone] repeat colonoscopy, last colonoscopy 04/10/23 with Walker, repeat unsure, biopsy taken tubular adenoma, 06/19/23 sigmoidoscopy- [facility] General Surgery Comment on above: repeat colonoscopy, last colonoscopy 04/10 with Walker, repeat unsure, biopsy taken tubular adenoma, 06/19/23 sigmoidoscopy- [facility] Start: 12-25-2023 BP CONTROLLED (<130/80) BP CONTROLLED (<130/80) [facility] Start: 12-23-2023 End: 03-23-2024 CBC W Auto Differential panel - Blood COMPLETE BLOOD COUNT AND DIFFERENTIAL Lab Routine Iron deficiency anemia due to chronic blood loss Expected: 12/23/2023 (Approximate), Expires: 03/23/2024 [facility] Work Phone: Comment on above: Expected: 12/23/2023 (Approximate), Expi res: 03/23/2024 Start: 12-23-2023 End: 03-23-2024 Comprehensive metabolic 2000 panel - Serum or Plasma COMPREHENSIVE METABOLIC PANEL Lab Routine Elevated glucose Hypertension, essential Hyperlipidemia, unspecified hyperlipidemia type Expected: 12/23/2023 (Approximate), Expires: 03/23/2024 [facility] Work Phone: Comment on above: Expected: 12/23/2023 (Approximate), Expi res: 03/23/2024 Start: 12-23-2023 End: 03-23-2024 Hemoglobin A1c in Blood HEMOGLOBIN A1C Lab Routine Elevated glucose Expected: 12/23/2023 (Approximate), Expires: 03/23/2024 [facility] Work Phone: Comment on above: Expected: 12/23/2023 (Approximate), Expi res: 03/23/2024 Start: 12-23-2023 End: 03-23-2024 Lipid 1996 panel - Serum or Plasma LIPID PANEL BASIC Lab Routine Elevated glucose Hypertension, essential Cerebrovascular accident (CVA), unspecified mechanism (HCC) Hyperlipidemia, unspecified hyperlipidemia type Coronary artery disease involving [place] coronary artery of [place] heart without angina pectoris Expected: 12/23/2023 (Approximate), Expires: 03/23/2024 [facility] Work Phone: Comment on above: Expected: 12/23/2023 (Approximate), Expi res: 03/23/2024 Start: 12-23-2023 End: 12-23-2023 Patient encounter procedure 12/23/2023 2:00 PM EDT Office Visit General Surgery [address] [place] [address] Foreign Patten MD [address] [place] [address] repeat colonoscopy General Surgery Comment on above: repeat colonoscopy Start: 12-16-2023 End: 12-16-2023 Patient encounter procedure 12/16/2023 3:30 PM EDT Office Visit Neurology [address] [place] [phone] Dena Bazan APRN.LAUNDRY OPERATOR WASH ROOM [address] [place] [address] DARON (obstructive sleep apnea) [G47.33] Neurology Comment on above: DARON (obstructive sleep apnea) [G47.33] Start: 12-16-2023 End: 03-16-2024 25-hydroxyvitamin D3 [Mass/volume] in Serum or Plasma [facility] Comment on above: Expected: 12/16/2023, Expires: Start: 12-16-2023 End: 03-16-2024 Ferritin [Mass/volume] in Serum or Plasma [facility] Comment on above: Expected: 12/16/2023, Expires: Start: 12-16-2023 End: 03-16-2024 Iron and Iron binding capacity panel - Serum or Plasma [facility] Comment on above: Expected: 12/16/2023, Expires: Start: 12-14-2023 Hepatitis B surface antibody level LDL CHOLESTEROL [facility] Start: 12-05-2023 ANNUAL PCP TEAM CHRONIC DISEASE VISIT ANNUAL PCP TEAM CHRONIC DISEASE VISIT [facility] Start: 12-05-2023 BP CONTROLLED (<130/80) BP CONTROLLED (<130/80) [facility] Start: 11-18-2023 ANNUAL PCP TEAM CHRONIC DISEASE VISIT ANNUAL PCP TEAM CHRONIC DISEASE VISIT [facility] Start: 11-18-2023 BP CONTROLLED (<130/80) BP CONTROLLED (<130/80) [facility] Start: 10-16-2023 BP CONTROLLED (<130/80) BP CONTROLLED (<130/80) [facility] Start: 10-10-2023 Covid-19 Vaccine ( season) Covid-19 Vaccine () [facility] Start: 09-27-2023 ANNUAL PCP TEAM CHRONIC DISEASE VISIT ANNUAL PCP TEAM CHRONIC DISEASE VISIT [facility] Start: 09-27-2023 BP CONTROLLED (<130/80) BP CONTROLLED (<130/80) [facility] Start: 09-11-2023 End: 12-11-2023 CBC W Auto Differential panel - Blood CBC + DIFF Lab Routine Iron deficiency anemia due to chronic blood loss Expected: 09/11/2023 (Approximate), Expires: 12/11/2023 [facility] Work Phone: Comment on above: Expected: 09/11/2023 (Approximate), Expi res: 12/11/2023 Start: 09-11-2023 End: 12-11-2023 Comprehensive metabolic 2000 panel - Serum or Plasma COMP METABOLIC PANEL Lab Routine Essential hypertension Hyperlipidemia, unspecified hyperlipidemia type Elevated glucose Expected: 09/11/2023 (Approximate), Expires: 12/11/2023 [facility] Work Phone: Comment on above: Expected: 09/11/2023 (Approximate), Expi res: 12/11/2023 Start: 09-11-2023 End: 12-11-2023 Hemoglobin A1c in Blood HGB A1C Lab Routine Elevated glucose Expected: 09/11/2023 (Approximate), Expires: 12/11/2023 [facility] Work Phone: Comment on above: Expected: 09/11/2023 (Approximate), Expi res: 12/11/2023 Start: 09-11-2023 End: 12-11-2023 Lipid 1996 panel - Serum or Plasma LIPID PANEL BASIC Lab Routine Essential hypertension Cerebrovascular accident (CVA), unspecified mechanism (HCC) Hyperlipidemia, unspecified hyperlipidemia type Coronary artery disease involving [place] coronary artery of [place] heart without angina pectoris Elevated glucose Expected: 09/11/2023 (Approximate), Expires: 12/11/2023 [facility] Work Phone: Comment on above: Expected: 09/11/2023 (Approximate), Expi res: 12/11/2023 Start: 09-07-2023 ANNUAL PCP TEAM CHRONIC DISEASE VISIT ANNUAL PCP TEAM CHRONIC DISEASE VISIT [facility] Start: 08-21-2023 BP CONTROLLED (<130/80) BP CONTROLLED (<130/80) [facility] Start: 08-09-2023 Patient discharge [facility] Start: 08-08-2023 Referral to occupational therapist [facility] Start: 08-08-2023 Referral to service [facility] Start: 08-08-2023 Urine culture Urine Culture [facility] Start: 08-08-2023 End: 08-08-2023 [facility] Start: 08-08-2023 Inhalation therapy procedure [facility] Start: 08-07-2023 Continuous pulse oximetry [facility] Start: 08-07-2023 Referral to service [facility] Start: 08-07-2023 Referral to occupational therapist [facility] Start: 08-07-2023 Oxygen therapy [facility] Start: 08-07-2023 Application of intermittent pneumatic compression device [facility] Start: 08-07-2023 Following clinical pathway protocol [facility] Start: 08-07-2023 Anesthesia closed proc lower leg ankle & foot ANESTH LOWER LEG PROCEDURE [facility] Start: 08-07-2023 Injection aa&/strd sciatic nerve NJX AA&/STRD SCIATIC NRV IMG [facility] Start: 08-07-2023 Open treatment bimalleolar ankle fracture TREATMENT OF ANKLE FRACTURE [facility] Start: 08-07-2023 Admission procedure [facility] Start: 08-07-2023 Consultation [facility] Start: 08-07-2023 Touch weight-bearing gait training [facility] Start: 08-07-2023 Application of ice collar, cap or bag [facility] Start: 08-07-2023 Assessment of risk of venous thromboembolism [facility] Start: 08-07-2023 Catheterization of vein [facility] Start: 08-07-2023 Deep breathing and coughing exercises [facility] Start: 08-07-2023 Following clinical pathway protocol [facility] Start: 08-07-2023 Incentive spirometry [facility] Start: 08-07-2023 Introduction of urinary catheter [facility] Start: 08-07-2023 Patient education [facility] Start: 08-07-2023 Taking patient vital signs [facility] Start: 08-07-2023 Vital signs measurements [facility] Start: 08-07-2023 End: 08-07-2023 [facility] Start: 08-07-2023 Medication education [facility] Start: 08-05-2023 Advance Directive Discussion Advance Directive Discussion [facility] Start: 08-05-2023 Behavioral Health Screening Behavioral Health Screening [facility] Start: 08-05-2023 Depression Assessment Depression Assessment [facility] Start: 07-15-2023 End: 08-13-2024 US CAROTID BILATERAL US CAROTID BILATERAL Radiology Routine Pre-op evaluation Expected: 07/15/2023, Expires: 08/13/2024 [facility] Work Phone: Comment on above: Expected: 07/15/2023, Expires: Start: 07-04-2023 ANNUAL PCP TEAM CHRONIC DISEASE VISIT ANNUAL PCP TEAM CHRONIC DISEASE VISIT [facility] Start: 06-20-2023 End: 09-19-2023 CBC panel - Blood by Automated count CBC Lab Routine Rectal mass Expected: 06/20/2023 (Approximate), Expires: 09/19/2023 [facility] Work Phone: Comment on above: Expected: 06/20/2023 (Approximate), Expi res: 09/19/2023 Start: 06-20-2023 End: 09-19-2023 Comprehensive metabolic 2000 panel - Serum or Plasma COMP METABOLIC PANEL Lab Routine Rectal mass Expected: 06/20/2023 (Approximate), Expires: 09/19/2023 [facility] Work Phone: Comment on above: Expected: 06/20/2023 (Approximate), Expi res: 09/19/2023 Start: 06-20-2023 End: 09-19-2023 CONFIRM BLOOD TYPE CONFIRM BLOOD TYPE Blood Bank Routine Rectal mass Expected: 06/20/2023 (Approximate), Expires: 09/19/2023 [facility] Work Phone: Comment on above: Expected: 06/20/2023 (Approximate), Expi res: 09/19/2023 Start: 06-20-2023 End: 09-19-2023 TYPE AND SCREEN,30 DAY TYPE AND SCREEN,30 DAY Blood Bank Routine Rectal mass Expected: 06/20/2023 (Approximate), Expires: 09/19/2023 [facility] Work Phone: Comment on above: Expected: 06/20/2023 (Approximate), Expi res: 09/19/2023 Start: 06-10-2023 End: 08-10-2023 CBC W Auto Differential panel - Blood CBC + DIFF Lab Routine Iron deficiency anemia due to chronic blood loss Expected: 06/10/2023 (Approximate), Expires: 08/10/2023 [facility] Work Phone: Comment on above: Expected: 06/10/2023 (Approximate), Expi res: 08/10/2023 Start: 06-10-2023 End: 08-10-2023 Comprehensive metabolic 2000 panel - Serum or Plasma COMP METABOLIC PANEL Lab Routine Iron deficiency anemia due to chronic blood loss Expected: 06/10/2023 (Approximate), Expires: 08/10/2023 [facility] Work Phone: Comment on above: Expected: 06/10/2023 (Approximate), Expi res: 08/10/2023 Start: 06-10-2023 End: 08-10-2023 Ferritin [Mass/volume] in Serum or Plasma FERRITIN BLD Lab Routine Iron deficiency anemia due to chronic blood loss Expected: 06/10/2023 (Approximate), Expires: 08/10/2023 [facility] Work Phone: Comment on above: Expected: 06/10/2023 (Approximate), Expi res: 08/10/2023 Start: 06-10-2023 End: 08-10-2023 Iron and Iron binding capacity panel - Serum or Plasma IRON + TIBC Lab Routine Iron deficiency anemia due to chronic blood loss Expected: 06/10/2023 (Approximate), Expires: 08/10/2023 [facility] Work Phone: Comment on above: Expected: 06/10/2023 (Approximate), Expi res: 08/10/2023 Start: 06-07-2023 End: 08-07-2023 Comprehensive metabolic 2000 panel - Serum or Plasma COMP METABOLIC PANEL Lab Routine Hyperlipidemia, unspecified hyperlipidemia type Essential hypertension Elevated glucose Expected: 06/07/2023 (Approximate), Expires: 08/07/2023 [facility] Work Phone: Comment on above: Expected: 06/07/2023 (Approximate), Expi res: 08/07/2023 Start: 06-07-2023 End: 08-07-2023 Hemoglobin A1c in Blood HGB A1C Lab Routine Elevated glucose Expected: 06/07/2023 (Approximate), Expires: 08/07/2023 [facility] Work Phone: Comment on above: Expected: 06/07/2023 (Approximate), Expi res: 08/07/2023 Start: 06-07-2023 End: 08-07-2023 Lipid 1996 panel - Serum or Plasma LIPID PANEL BASIC Lab Routine Hyperlipidemia, unspecified hyperlipidemia type Essential hypertension Expected: 06/07/2023 (Approximate), Expires: 08/07/2023 [facility] Work Phone: Comment on above: Expected: 06/07/2023 (Approximate), Expi res: 08/07/2023 Start: 05-21-2023 End: 08-20-2023 Carcinoembryonic Ag [Mass/volume] in Serum or Plasma CEA BLD Lab Routine Iron deficiency anemia due to chronic blood loss Expected: 05/21/2023, Expires: 08/20/2023 [facility] Work Phone: Comment on above: Expected: 05/21/2023, Expires: 4 Start: 05-10-2023 ANNUAL PCP TEAM CHRONIC DISEASE VISIT ANNUAL PCP TEAM CHRONIC DISEASE VISIT [facility] Start: 04-19-2023 BP CONTROLLED (<130/80) BP CONTROLLED (<130/80) [facility] Start: 04-19-2023 End: 06-19-2023 Ferritin [Mass/volume] in Serum or Plasma [facility] Work Phone: Comment on above: Expected: 04/19/2023, Expires: 3 Start: 04-19-2023 End: 06-19-2023 Iron and Iron binding capacity panel - Serum or Plasma [facility] Work Phone: Comment on above: Expected: 04/19/2023, Expires: 3 Start: 04-05-2023 Covid-19 Vaccine () Covid-19 Vaccine () [facility] Start: 04-05-2023 Influenza vaccination [facility] Start: 03-20-2023 ANNUAL PCP TEAM CHRONIC DISEASE VISIT ANNUAL PCP TEAM CHRONIC DISEASE VISIT [facility] Start: 01-24-2023 ANNUAL PCP TEAM CHRONIC DISEASE VISIT ANNUAL PCP TEAM CHRONIC DISEASE VISIT [facility] Start: 01-24-2023 BP CONTROLLED (<130/80) BP CONTROLLED (<130/80) [facility] in Start: 11-19-2022 Blood chemistry [facility] Start: 11-18-2022 Blood chemistry [facility] Start: 11-17-2022 Blood chemistry [facility] Start: 11-16-2022 Blood chemistry [facility] Start: 11-15-2022 Patient discharge [facility] Start: 11-15-2022 Referral to service [facility] Start: 11-15-2022 [facility] Start: 11-11-2022 Oxygen therapy [facility] Start: 11-11-2022 Assessment of risk of venous thromboembolism [facility] Start: 11-11-2022 Insertion of catheter into peripheral vein [facility] Start: 11-11-2022 Measuring intake and output [facility] Start: 11-11-2022 Providing care according to standard [facility] Start: 11-11-2022 Provision of activity privileges [facility] Start: 11-11-2022 Referral to occupational therapist [facility] Start: 11-11-2022 Referral to service [facility] Start: 11-11-2022 Speech therapy assessment [facility] Start: 11-11-2022 Verification routine [facility] Start: 11-11-2022 [facility] Start: 11-11-2022 Following clinical pathway protocol [facility] Start: 11-11-2022 Admission procedure [facility] Start: 11-11-2022 Blood culture [facility] Start: 11-11-2022 End: 11-12-2022 [facility] Start: 11-11-2022 Inhalation therapy procedure [facility] Start: 11-07-2022 ANNUAL PCP TEAM CHRONIC DISEASE VISIT ANNUAL PCP TEAM CHRONIC DISEASE VISIT [facility] Start: 10-29-2022 End: 12-29-2022 Bacteria identified in Urine by Culture URINE CULTURE Microbiology Routine Acute cystitis without hematuria Expected: 10/29/2022 (Approximate), Expires: 12/29/2022 [facility] Work Phone: Comment on above: Expected: 10/29/2022 (Approximate), Expi res: 12/29/2022 Start: 10-15-2022 End: 12-15-2022 Comprehensive metabolic 2000 panel - Serum or Plasma COMP METABOLIC PANEL Lab Routine Coronary artery disease involving [place] coronary artery of [place] heart without angina pectoris Mixed hyperlipidemia Expected: 10/15/2022, Expires: 12/15/2022 [facility] Work Phone: Comment on above: Expected: 10/15/2022, Expires: 3 Start: 10-15-2022 End: 12-15-2022 Lipid 1996 panel - Serum or Plasma LIPID PANEL BASIC Lab Routine Mixed hyperlipidemia Expected: 10/15/2022, Expires: 12/15/2022 [facility] Work Phone: Comment on above: Expected: 10/15/2022, Expires: 3 Start: 10-15-2022 End: 12-15-2022 Thyrotropin [Units/volume] in Serum or Plasma TSH BLD Lab Routine Paroxysmal atrial fibrillation (HCC) Expected: 10/15/2022, Expires: 12/15/2022 [facility] Work Phone: Comment on above: Expected: 10/15/2022, Expires: 3 Start: 10-05-2022 End: 12-05-2022 Basic metabolic 2000 panel - Serum or Plasma BASIC METABOLIC PNL Lab Routine Primary hypertension Expected: 10/05/2022, Expires: 12/05/2022 [facility] Work Phone: Comment on above: Expected: 10/05/2022, Expires: 3 Start: 10-04-2022 BP CONTROLLED (<130/80) BP CONTROLLED (<130/80) [facility] in Start: 10-02-2022 Hepatitis B surface antibody level LDL CHOLESTEROL [facility] Start: 09-28-2022 COVID-19 VACCINE (5 - Moderna series) COVID-19 VACCINE (5 - Moderna series) [facility] Start: 09-12-2022 ANNUAL PCP TEAM CHRONIC DISEASE VISIT ANNUAL PCP TEAM CHRONIC DISEASE VISIT [facility] Start: 09-11-2022 COLORECTAL CANCER SCREENING COLORECTAL CANCER SCREENING [facility] Start: 09-11-2022 FECAL OCCULT BLOOD FECAL OCCULT BLOOD [facility] Start: 09-11-2022 Screening for malignant neoplasm of colon Fecal Occult Blood [facility] Start: 09-07-2022 End: 11-07-2022 Bacteria identified in Urine by Culture URINE CULTURE Microbiology Routine Acute cystitis without hematuria Expected: 09/07/2022, Expires: 11/07/2022 [facility] Work Phone: Comment on above: Expected: 09/07/2022, Expires: 3 Start: 09-03-2022 End: 11-03-2022 Basic metabolic 2000 panel - Serum or Plasma BASIC METABOLIC PNL Lab Routine Essential hypertension Expected: 09/03/2022, Expires: 11/03/2022 [facility] Work Phone: Comment on above: Expected: 09/03/2022, Expires: 3 Start: 08-17-2022 Patient discharge [facility] Start: 08-17-2022 [facility] Start: 08-17-2022 Inhalation therapy procedure [facility] Start: 08-17-2022 Physiotherapy of chest [facility] Start: 08-16-2022 End: 08-16-2022 [facility] Start: 08-16-2022 Oxygen therapy [facility] Start: 08-16-2022 Admission procedure [facility] Start: 08-16-2022 Assessment of risk of venous thromboembolism [facility] Start: 08-16-2022 Incentive spirometry [facility] Start: 08-16-2022 Insertion of catheter into peripheral vein [facility] Start: 08-16-2022 Measuring intake and output [facility] Start: 08-16-2022 Providing care according to standard [facility] Start: 08-16-2022 Provision of activity privileges [facility] Start: 08-16-2022 Referral to occupational therapist [facility] Start: 08-16-2022 Referral to service [facility] Start: 08-16-2022 Following clinical pathway protocol [facility] Start: 08-16-2022 End: 08-16-2022 [facility] Start: 08-05-2022 ADVANCE DIRECTIVE DISCUSSION ADVANCE DIRECTIVE DISCUSSION [facility] Start: 08-05-2022 DEPRESSION ASSESSMENT DEPRESSION ASSESSMENT [facility] Start: 06-15-2022 End: 08-15-2022 CBC W Auto Differential panel - Blood CBC + DIFF Lab Routine Essential hypertension Expected: 06/15/2022, Expires: 08/15/2022 [facility] Work Phone: Comment on above: Expected: 06/15/2022, Expires: 3 Start: 06-05-2022 End: 08-05-2022 Comprehensive metabolic 2000 panel - Serum or Plasma COMP METABOLIC PANEL Lab Routine Hyperlipidemia, unspecified hyperlipidemia type Essential hypertension Expected: 06/05/2022, Expires: 08/05/2022 [facility] Work Phone: Comment on above: Expected: 06/05/2022, Expires: 3 Start: 06-05-2022 End: 08-05-2022 Lipid 1996 panel - Serum or Plasma LIPID PANEL BASIC Lab Routine Hyperlipidemia, unspecified hyperlipidemia type Essential hypertension Expected: 06/05/2022, Expires: 08/05/2022 [facility] Work Phone: Comment on above: Expected: 06/05/2022, Expires: 3 Start: 06-05-2022 End: 08-05-2022 Natriuretic peptide.B prohormone N-Terminal [Mass/volume] in Serum or Plasma NT PRO BNP Lab Routine Essential hypertension Shortness of breath Expected: 06/05/2022, Expires: 08/05/2022 [facility] Work Phone: Comment on above: Expected: 06/05/2022, Expires: 3 Start: 04-05-2022 Influenza vaccination INFLUENZA (#1) [facility] Start: 02-03-2022 Adult depression screening assessment DEPRESSION SCREENING [facility] Start: 02-02-2022 End: 04-04-2022 Comprehensive metabolic 2000 panel - Serum or Plasma COMP METABOLIC PANEL Lab Routine Coronary artery disease involving [place] coronary artery of [place] heart without angina pectoris Essential hypertension Expected: 02/02/2022 (Approximate), Expires: 04/04/2022 [facility] Work Phone: Comment on above: Expected: 02/02/2022 (Approximate), Expi res: 04/04/2022 Start: 02-02-2022 End: 04-04-2022 Natriuretic peptide.B prohormone N-Terminal [Mass/volume] in Serum or Plasma NT PRO BNP Lab Routine Coronary artery disease involving [place] coronary artery of [place] heart without angina pectoris Essential hypertension Shortness of breath Expected: 02/02/2022 (Approximate), Expires: 04/04/2022 [facility] Work Phone: Comment on above: Expected: 02/02/2022 (Approximate), Expi res: 04/04/2022 Start: 11-15-2021 COVID-19 VACCINE (4 - Booster for Moderna series) COVID-19 VACCINE (4 - Booster for Moderna series) [facility] Start: 11-03-2021 HEPATITIS C SCREENING HEPATITIS C SCREENING [facility] Comment on above: Postponed from 1973 (Declined at t his time) Start: 09-11-2021 COVID-19 VACCINE (4 - Booster for Moderna series) COVID-19 VACCINE (4 - Booster for Moderna series) [facility] Start: 08-05-2021 ADVANCE DIRECTIVE DISCUSSION ADVANCE DIRECTIVE DISCUSSION [facility] Start: 08-05-2021 DEPRESSION ASSESSMENT DEPRESSION ASSESSMENT [facility] Start: 2020 PNEUMOVAX AGE 65 AND OVER WITH 5YR LOOKBACK (#1) PNEUMOVAX AGE 65 AND OVER WITH 5YR LOOKBACK (#1) [facility] Start: 06-03-2015 PROSTATE CANCER SCREENING DISCUSSION PROSTATE CANCER SCREENING DISCUSSION [facility] Start: 06-03-2015 Prostate specific antigen measurement Prostate Cancer Screening Discussion [facility] Start: 2005 Influenza vaccination LUNG CANCER SCREENING [facility] Start: 2005 Screening for malignant neoplasm of lung Lung Cancer Screening [facility] Start: 2005 SHINGRIX VACCINE (1 of 2) SHINGRIX VACCINE (1 of 2) [facility] Start: 2000 COLOGUARD (FIT-DNA) COLOGUARD (FIT-DNA) [facility] Start: 2000 Colonoscopy COLONOSCOPY [facility] Start: [address] COLONOGRAPHY [facility] Start: 2000 Screening for malignant neoplasm of colon [facility] Start: 2000 SIGMOIDOSCOPY SIGMOIDOSCOPY [facility] Start: 1985 Zoledronic acid therapy ALPHA-1 ANTITRYPSIN DEFICIENCY SCREENING [facility] Start: 1974 Urine microalbumin profile [facility] Start: 1973 BP CONTROLLED (<130/80) BP CONTROLLED (<130/80) [facility] Start: 1973 HEPATITIS C SCREENING HEPATITIS C SCREENING [facility] Start: 1973 Hepatitis C screening Hepatitis C Screening [facility] Start: 1973 SPIROMETRY SPIROMETRY [facility] Start: 1961 Pneumococcal Vaccine: 65+ (1 - PCV) Pneumococcal Vaccine: 65+ (1 - PCV) [facility] Start: 1961 PNEUMOCOCCAL: 65+ (1 - PCV) PNEUMOCOCCAL: 65+ (1 - PCV) [facility] Start: 1955 ABDOMINAL AORTIC ANEURYSM SCREENING ABDOMINAL AORTIC ANEURYSM SCREENING [facility] Start: 1955 Abdominal aortic aneurysm screening Abdominal Aortic Aneurysm Screening [facility] Anion gap measurement [facility] Anion gap measurement [facility] Anion gap measurement [facility] Anion gap measurement [facility] Bacteria identified in Blood by Culture Blood Culture [facility] Bacteria identified in Blood by Culture Blood Culture [facility] BUN/Creatinine ratio [facility] BUN/Creatinine ratio [facility] BUN/Creatinine ratio [facility] BUN/Creatinine ratio [facility] Calcium [Mass/volume ] in Serum or Plasma [facility] Calcium [Mass/volume ] in Serum or Plasma [facility] Calcium [Mass/volume ] in Serum or Plasma [facility] Calcium [Mass/volume ] in Serum or Plasma [facility] Carbon dioxide, tota l [Moles/volume] in Serum or Plasma [facility] Carbon dioxide, tota l [Moles/volume] in Serum or Plasma [facility] Carbon dioxide, tota l [Moles/volume] in Serum or Plasma [facility] Carbon dioxide, tota l [Moles/volume] in Serum or Plasma [facility] Carcinoembryonic Ag [Mass/volume] in Serum or Plasma CEA BLD Lab Routine Iron deficiency anemia due to chronic blood loss 05/22/2023 2:15 PM EDT [facility] Work Phone: Chloride [Moles/volu me] in Serum or Plasma [facility] Chloride [Moles/volu me] in Serum or Plasma [facility] Chloride [Moles/volu me] in Serum or Plasma [facility] Chloride [Moles/volu me] in Serum or Plasma [facility] End: 04-07-2024 COLONOSCOPY DIAGNOSTIC COLONOSCOPY DIAGNOSTIC Endoscopy Routine Iron deficiency anemia due to chronic blood loss 1 Occurrences starting 04/07/2023 until 04/07/2024 [facility] Work Phone: Comment on above: 1 Occurrences starting 04/07/2023 until 04/07/2024 Creatinine [Moles/vo lume] in Serum or Plasma [facility] Creatinine [Moles/vo lume] in Serum or Plasma [facility] Creatinine [Moles/vo lume] in Serum or Plasma [facility] Creatinine [Moles/vo lume] in Serum or Plasma [facility] End: 06-19-2024 Ct abdomen & pelvis w/contrast material CT ABD/PEL W IVCON Radiology Routine Iron deficiency anemia due to chronic blood loss 1 Occurrences starting 05/21/2023 until 06/19/2024 [facility] Work Phone: Comment on above: 1 Occurrences starting 05/21/2023 until 06/19/2024 CT Chest [facility] Work Phone: End: 07-01-2025 CT Neck W contrast IV CTA NECK W IVCON Radiology Routine Cerebral aneurysm without rupture 1 Occurrences starting 06/01/2024 until 07/01/2025 [facility] Comment on above: 1 Occurrences starting 06/01/2024 until 07/01/2025 End: 07-01-2025 CTA Head Arteries W contrast IV CTA HEAD W IVCON Radiology Routine Cerebral aneurysm without rupture 1 Occurrences starting 06/01/2024 until 07/01/2025 [facility] Work Phone: Comment on above: 1 Occurrences starting 06/01/2024 until 07/01/2025 End: 06-20-2024 ECG COMPLETE ECG COMPLETE ECG Routine Rectal mass 1 Occurrences starting 06/20/2023 until 06/20/2024 [facility] Work Phone: Comment on above: 1 Occurrences starting 06/20/2023 until 06/20/2024 End: 04-07-2024 EGD DIAGNOSTIC EGD DIAGNOSTIC Endoscopy Routine Iron deficiency anemia due to chronic blood loss 1 Occurrences starting 04/07/2023 until 04/07/2024 [facility] Work Phone: Comment on above: 1 Occurrences starting 04/07/2023 until 04/07/2024 End: 09-03-2025 EPIL EEG LONG EPIL EEG LONG NEUROLOGY Routine Seizure (HCC) 1 Occurrences starting 09/03/2024 until 09/03/2025 [facility] Work Phone: Comment on above: 1 Occurrences starting 09/03/2024 until 09/03/2025 End: 03-09-2025 EPIL EEG ROUTINE EPIL EEG ROUTINE NEUROLOGY Routine History of stroke Altered mental status, unspecified altered mental status type 1 Occurrences starting 03/09/2024 until 03/09/2025 [facility] Comment on above: 1 Occurrences starting 03/09/2024 until 03/09/2025 EPIL VEEG ADMIT TO EMU/PMU EPIL VEEG ADMIT TO EMU/PMU NEUROLOGY Routine Altered awareness, transient Abnormal EEG Ordered: 07/23/2024 [facility] Work Phone: Comment on above: Ordered: 07/23/2024 Glucose [Mass/volume ] in Serum or Plasma [facility] Glucose [Mass/volume ] in Serum or Plasma [facility] Glucose [Mass/volume ] in Serum or Plasma [facility] Glucose [Mass/volume ] in Serum or Plasma [facility] Hematocrit [Volume Fraction] of Blood [facility] Hematocrit [Volume Fraction] of Blood [facility] Hematocrit [Volume Fraction] of Blood [facility] Hematocrit [Volume Fraction] of Blood [facility] Hemoglobin [Mass/vol ume] in Blood [facility] Hemoglobin [Mass/vol ume] in Blood [facility] Hemoglobin [Mass/vol ume] in Blood [facility] Hemoglobin [Mass/vol ume] in Blood [facility] Leukocytes [#/volume ] in Blood [facility] Leukocytes [#/volume ] in Blood [facility] Leukocytes [#/volume ] [facility] Blood [facility] [facility] Leuk[facility] [#/volume ] in Blood [facility] End: 11-05-2025 LUNG DIFFUSION CAPACITY (DLCO) LUNG DIFFUSION CAPACITY (DLCO) PFT Routine COPD, moderate (HCC) 1 Occurrences starting 10/06/2024 until 11/05/2025 [facility] Comment on above: 1 Occurrences starting 10/06/2024 until 11/05/2025 Mean corpuscular hemoglobin concentration determination [facility] Mean corpuscular hemoglobin concentration determination [facility] Mean corpuscular hemoglobin concentration determination [facility] Mean corpuscular hemoglobin concentration determination [facility] Mean corpuscular hemoglobin determination [facility] Mean corpuscular hemoglobin determination [facility] Mean corpuscular hemoglobin determination [facility] Mean corpuscular hemoglobin determination [facility] Measurement of renal function [facility] Measurement of renal function [facility] Measurement of renal function [facility] Measurement of renal function [facility] End: 04-08-2025 MR Brain WO contrast [...] artery 1 Occurrences starting 03/09/2024 until 04/08/2025 [facility] Work Phone: Comment on above: 1 [...] artery 1 Occurrences starting 03/09/2024 until 04/08/2025 [facility] Comment on above: 1 Occurrences starting 03/09/2024 [...] artery 1 Occurrences starting 03/09/2024 until 04/08/2025 [facility] Comment on above: 1 Occurrences starting 03/09/2024 until 04/08/2025 Neutrophil count [facility] Neutrophil count [facility] Neutrophil count [facility] Neutrophil count [facility] Neutrophil percent differential count [facility] Neutrophil percent differential count [facility] Neutrophil percent differential count [facility] Neutrophil percent differential count [facility] OXIMETRY - NOCTURNAL OXIMETRY - NOCTURNAL Procedures Routine Centrilobular emphysema (HCC) Ordered: 03/12/2023 [facility] Work Phone: Comment on above: Ordered: 03/12/2023 OXIMETRY - NOCTURNAL OXIMETRY - NOCTURNAL Procedures Routine Centrilobular emphysema (HCC) Ordered: 09/16/2023 [facility] Work Phone: Comment on above: Ordered: 09/16/2023 OXIMETRY - NOCTURNAL OXIMETRY - NOCTURNAL Procedures Routine Dependence on nocturnal oxygen therapy Ordered: 10/06/2024 [facility] Comment on above: Ordered: 10/06/2024 Patient Education [facility] Work Phone: Patient referral [facility] Work Phone: Platelets [#/volume] in Blood [facility] Platelets [#/volume] in Blood [facility] Platelets [#/volume] in Blood [facility] Platelets [#/volume] in Blood [facility] End: 12-15-2024 Polysomnogram POLYSOMNOGRAM (PSG) Procedures Routine DARON (obstructive sleep apnea) Intolerance of continuous positive airway pressure (CPAP) ventilation 1 Occurrences starting 12/16/2023 until 12/15/2024 [facility] Work Phone: Comment on above: 1 Occurrences starting 12/16/2023 until 12/15/2024 Potassium [Moles/vol ume] in Serum or Plasma [facility] Potassium [Moles/vol ume] in Serum or Plasma [facility] Potassium [Moles/vol ume] in Serum or Plasma [facility] Potassium [Moles/vol ume] in Serum or Plasma [facility] End: 01-03-2024 Radiologic exam chest 2 views XR CHEST 2V FRONTAL/LAT Radiology Routine Acute cough 1 Occurrences starting 12/04/2022 until 01/03/2024 [facility] Work Phone: Comment on above: 1 Occurrences starting 12/04/2022 until 01/03/2024 Radiologic exam ches t 2 views XR CHEST 2V FRONTAL/LAT Radiology Routine Acute cough 12/04/2022 5:00 PM EDT [facility] Work Phone: End: 01-05-2024 Radiologic exam swallow function contrast study XR MODIFIED BARIUM SWALLOW W SPEECH THERAPY Radiology Routine Aphasia as late effect of cerebrovascular accident Cerebrovascular accident (CVA), unspecified mechanism (HCC) 1 Occurrences starting 12/06/2022 until 01/05/2024 [facility] Work Phone: Comment on above: 1 Occurrences starting 12/06/2022 until 01/05/2024 Red blood cell count [facility] Red blood cell count [facility] Red blood cell count [facility] Red blood cell count [facility] Red cell distributio n width determination [facility] Red cell distributio n width determination [facility] Red cell distributio n width determination [facility] Red cell distributio n width determination [facility] REFER FOR ADMIT INTERVIEW REFER FOR ADMIT INTERVIEW Procedures Routine Rectal mass Ordered: 06/20/2023 [facility] Work Phone: Comment on above: Ordered: 06/20/2023 Removal impacted cer umen irrigation/lvg unilat AMBULATORY EAR LAVAGE/IRRIGATION Procedures Routine Bilateral impacted cerumen Ordered: 03/02/2025 [facility] Work Phone: Comment on above: Ordered: 03/02/2025 End: 02-23-2025 Screening colonoscopy COLONOSCOPY SCREENING Endoscopy Routine History of colonic polyps 1 Occurrences starting 02/24/2024 until 02/23/2025 [facility] Work Phone: Comment on above: 1 Occurrences starting 02/24/2024 until 02/23/2025 Sodium [Moles/volume ] in Serum or Plasma [facility] Sodium [Moles/volume ] in Serum or Plasma [facility] Sodium [Moles/volume ] in Serum or Plasma [facility] Sodium [Moles/volume ] in Serum or Plasma [facility] End: 11-05-2025 SPIROMETRY WITH DILATOR IF OBSTRUCTED SPIROMETRY WITH DILATOR IF OBSTRUCTED PFT Routine COPD, moderate (HCC) 1 Occurrences starting 10/06/2024 until 11/05/2025 [facility] Work Phone: Comment on above: 1 Occurrences starting 10/06/2024 until 11/05/2025 SURGICAL PATHOLOGY [facility] Work Phone: Comment on above: Release Upon Ordering for 1 Occurrences starting 04/10/2023, 1 completed Urea nitrogen [Mass/volume] in Serum or Plasma [facility] Urea nitrogen [Mass/volume] in Serum or Plasma [facility] Urea nitrogen [Mass/volume] in Serum or Plasma [facility] Urea nitrogen [Mass/volume] in Serum or Plasma [facility] Urine culture Urine Culture [facility] Work Phone: End: 10-01-2024 US Carotid arteries - bilateral US CAROTID ARTERIES [facility] Vascular Lab Routine Occlusion of left carotid artery 1 Occurrences starting 10/01/2023 until 10/01/2024 [facility] Work Phone: Comment on above: 1 Occurrences starting 10/01/2023 until 10/01/2024 End: 09-23-2025 US Carotid arteries - bilateral US CAROTID ARTERIES [facility] V[facility] Lab Routine Occlusion of left carotid artery Subclavian artery stenosis, left (HCC) 1 Occurrences starting 09/24/2024 until 09/23/2025 [facility] Comment on above: 1 Occurrences starting 09/24/2024 until 09/23/2025 End: 11-10-2025 US Carotid arteries - bilateral US CAROTID ARTERIES [facility] Vascular Lab Routine Occlusion of left carotid artery Subclavian artery stenosis, left 1 Occurrences starting 11/10/2024 until 11/10/2025 [facility] Work Phone: Comment on above: 1 Occurrences starting 11/10/2024 until 11/10/2025 End: 06-18-2024 US CAROTID ARTERIES [facility] US CAROTID ARTERIES [facility] Vascular Lab Routine Occlusion of left carotid artery 1 Occurrences starting 06/18/2023 until 06/18/2024 [facility] Work Phone: Comment on above: 1 Occurrences starting 06/18/2023 until 06/18/2024 End: 09-23-2025 US Upper extremity artery US ARM ARTERIAL UNL [facility] Vascular Lab Routine Occlusion of left carotid artery Subclavian artery stenosis, left (HCC) 1 Occurrences starting 09/24/2024 until 09/23/2025 [facility] Work Phone: Comment on above: 1 Occurrences starting 09/24/2024 until 09/23/2025 End: 08-12-2025 XR Knee - left 4 Views XR KNEE GENERAL 4V AP BOTH/PA BOTH/LAT/MERC LEFT Radiology Routine Acute pain of left knee 1 Occurrences starting 07/13/2024 until 08/12/2025 [facility] Comment on above: 1 Occurrences starting 07/13/2024 until 08/12/2025 [facility] c [facility] c [facility] c [facility] c [facility] Immunizations Immunization Date Immunization Notes Care Provider tone 05-26-2024 COVID-19 original vaccine, full dose, monovalent (MODERNA) Jaci Arroyo MD Work Phone: [facility] 05-26-2024 influenza (HD-IIV4) vaccine, age 65+ yr, high dose, quadrivalent, PF (FLUZONE HIGH-DOSE) Jaci Arroyo MD Work Phone: [facility] 05-26-2024 influenza virus vaccine, unspecified formulation RICARDO MARIE APRN-LAUNDRY OPERATOR WASH ROOM [facility] 05-26-2024 SARS-CoV-2 (COVID-19 ) [id number] RICARDO MARIE NEW GRAD RN-LAUNDRY OPERATOR WASH ROOM [facility] 06-11-2023 COVID-19 vaccine, ag e 12+ yr, 2022- season (Venuelabs-Sleep NumberNTKippt) Jaci Arroyo MD Work Phone: [facility] 06-11-2023 SARS-CoV-2 (COVID-19 ) [id number] RICARDO MARIE APRN-LAUNDRY OPERATOR WASH ROOM [facility] Comment on above: Result Comment: 2024: [id number] 04-23-2023 influenza (aIIV4) vaccine, age 65+ yr, quadrivalent, PF (FLUAD QUAD) Jaci Arroyo MD Work Phone: [facility] 04-23-2023 respiratory syncytia l virus (RSV) vaccine, bivalent (ABRYSVO) Jaci Arroyo MD Work Phone: [facility] 04-23-2023 influenza virus vaccine, unspecified formulation Jaci Arroyo MD Work Phone: [facility] 06-05-2022 influenza (aIIV4) vaccine, age 65+ yr, quadrivalent, PF (FLUAD QUAD) Jaci Arroyo MD Work Phone: [facility] 06-05-2022 influenza virus vaccine, unspecified formulation Mariano Beckman APRN.LAUNDRY OPERATOR WASH ROOM Work Phone: [facility] 05-28-2022 pneumococcal conjuga te (PCV20) vaccine, 20 valent (PREVNAR 20) Jaci Arroyo MD Work Phone: [facility] 07-17-2021 SARS-CoV-2 (COVID-19 ) [id number] vaccine RICARDO MARIE NEW GRAD RN-LAUNDRY OPERATOR WASH ROOM [facility] 05-11-2021 influenza, injectabl e, quadrivalent, preservative free Dr. Jaci Arroyo Work Phone: [facility] 05-11-2021 influenza, seasonal, injectable Dr. Jaci Arroyo Work Phone: [facility] 05-10-2021 tetanus toxoid, reduced diphtheria toxoid, and acellular pertussis vaccine, adsorbed Jaci Arroyo MD Work Phone: [facility] 05-03-2021 influenza virus vaccine, unspecified formulation RICARDO MARIE NEW GRAD RN-LAUNDRY OPERATOR WASH ROOM [facility] 05-03-2021 influenza, high-dose , quadrivalent vaccine (FLUZONE HIGH DOSE QUADRIVALENT) Jaci Arroyo MD Work Phone: [facility] 11-17-2020 COVID-19 vaccine, fu ll dose (MODERNA) Jaci Arroyo MD Work Phone: [facility] Comment on above: Result Comment: 2024: [id number] 10-20-2020 COVID-19 vaccine, fu ll dose (MODERNA) Jaci Arroyo MD Work Phone: [facility] Comment on above: Result Comment: 2024: [id number] 05-06-2020 influenza virus vaccine, unspecified formulation RICARDO FRANK NEW GRAD RN-LAUNDRY OPERATOR WASH ROOM [facility] 05-06-2020 influenza, injectabl e, quadrivalent, contains preservative Jaci Arroyo MD Work Phone: [facility] 04-21-2019 influenza virus vaccine, unspecified formulation RICARDO MARIE NEW GRAD RN-LAUNDRY OPERATOR WASH ROOM [facility] 04-21-2019 influenza, injectabl e, quadrivalent, contains preservative Jaci Arroyo MD Work Phone: [facility] 06-19-2018 Flucelvax Quad [id number] (PF) (flu vac qs 2018(4 yr up)CD(PF)) 60 mcg ([address] Jaci Arroyo Work Phone: [facility] Work Phone: 06-08-2018 influenza virus vaccine, unspecified formulation RICARDO MARIE NEW GRAD RN-LAUNDRY OPERATOR WASH ROOM [facility] 06-08-2018 influenza, seasonal, injectable Jaci Arroyo MD Work Phone: [facility] 05-05-2017 influenza virus vaccine, unspecified formulation RICRADO MARIE APRN-LAUNDRY OPERATOR WASH ROOM [facility] 05-05-2017 influenza, seasonal, injectable Jaci Arroyo MD Work Phone: [facility] Payers Date Payer Category Payer Medicare [id number] 2024 Unknown [id number] 2024 Private Health Insurance [facility] [id number] 2024 Medicare (Managed Care) 1.2. [id number] 2023 Unknown [id number] 2023 Self-pay [id number] 2022 Medicare [id number] .[id number] 2022 Medicaid [id number] 2021 Medicare [id number] .[id number] 2019 Medicaid [id number]. [id number] .[id number] 2019 Medicare [id number] [id number] .[id number] 2019 Unknown [id number] 2016 Medicaid [id number] 1955 Unknown [id number] 2.16.840.1.277332.3.579.2.2 78 1955 Unknown [id number] 2.16.840.1.067518.3.579.2.2 78 1955 Unknown [id number] 2.16.840.1.679838.3.579.2.2 78 1955 Unknown [id number] 2.16.840.1.440743.3.579.2.2 78 1955 Unknown [id number] 2.16.840.1.955936.3.579.2.2 78 1955 Unknown [id number] 2.16.840.1.974641.3.579.2.2 78 1955 Unknown [id number] 2.16.840.1.308556.3.579.2.6 27 1955 Unknown [id number] 2.16.840.1.069271.3.579.2.6 27 1955 Unknown [id number] 2.16.840.1.343815.3.579.2.6 27 1955 Unknown [id number] 2.16.840.1.931852.3.579.2.6 27 1955 Unknown [id number] 2.16.840.1.322352.3.579.2.6 27 1955 Unknown [id number] 2.16.840.1.345588.3.579.2.6 27 Unknown VA AUTH REQUIR ED SEE NOTE [id number] Unknown [id number] 2.16.840.1.736237.3.579.2.4 62 Unknown [id number] 2.16.840.1.565261.3.579.2.4 62 Unknown [id number] 2.16.840.1.145244.3.579.2.4 62 Unknown [id number] 2.16.840.1.886352.3.579.2.4 62 Unknown [id number] 2.16.840.1.480324.3.579.2.4 62 Unknown [id number] 2.16.840.1.983989.3.579.2.4 62 Unknown [id number] 2.16.840.1.643843.3.579.2.4 62 Unknown [id number] 2.16.840.1.855254.3.579.2.4 62 Unknown [id number] 2.16.840.1.840395.3.579.2.4 62 Unknown [id number] 2.16.840.1.844990.3.579.2.4 62 Unknown [id number] 2.16.840.1.487691.3.579.2.4 62 Unknown [id number] 2.16.840.1.139221.3.579.2.4 62 Unknown [id number] 2.16.840.1.457288.3.579.2.4 62 Unknown [id number] 2.16.840.1.895938.3.579.2.4 62 Unknown [id number] 2.16.840.1.962949.3.579.2.4 62 Unknown [id number] 2.16.840.1.949284.3.579.2.4 62 Unknown [id number] 2.16.840.1.779802.3.579.2.4 62 Unknown [id number] 2.16.840.1.656243.3.579.2.4 62 Unknown [id number] 2.16.840.1.855880.3.579.2.4 62 Unknown [id number] 2.16.840.1.231621.3.579.2.4 62 Unknown [id number] 2.16.840.1.720647.3.579.2.4 62 Social History Date Type Detail Facility Start: 02-03-2015 End: 03-23-2024 Tobacco smoking status NHIS Ex-smoker [facility] Work Phone: Start: 07-08-1971 End: 07-08-2016 History of tobacco use Current smoker [facility] Work Phone: Start: 07-08-1971 End: 07-08-2016 History of tobacco use Cigarette Smoker [facility] Work Phone: Start: 02-03-2015 End: 03-23-2024 Tobacco use and exposure Smokeless tobacco non-user [facility] Work Phone: Start: 10-05-2021 End: 03-02-2025 Alcohol intake Current non-drinker of alcohol (finding) [facility] Start: 09-27-2016 End: 04-19-2022 Tobacco Comment 07/08/2016 [facility] Start: 1955 Sex Assigned At Not on file [facility] Start: 09-04-2021 End: 07-04-2022 Exposure to SARS-CoV-2 (event) Not sure [facility] Start: 10-06-2021 End: 09-26-2023 Tobacco smoking status CAIS Unknown if ever smoked [facility] Start: 03-11-2019 None [facility] Start: 03-11-2019 Spouse/ Significant Other [facility] Start: 08-23-2021 Non-smoker [facility] Start: 1955 Sex Assigned At Male [facility] Start: 05-10-2022 History SDOH Alcohol Frequency 1 [facility] Start: 05-10-2022 History SDOH Alcohol Std Drinks 0 [facility] Start: 05-10-2022 History SDOH Social Connections Phone 2 [facility] Start: 05-10-2022 History SDOH Social Connections Living 3 [facility] Start: 05-10-2022 History SDOH Physical Activity DPW 4 [facility] Start: 05-10-2022 History SDOH Financial 5 [facility] Start: 05-10-2022 End: 12-20-2022 History of Social function [facility] Start: 05-10-2022 End: 12-20-2022 Social connection and isolation panel [facility] Do you belong to any clubs or organizations such as latter-day groups, unions, fraternal or athletic groups, or school groups? Yes [facility] Are you now , , , , never or living with a partner? [facility] How often to you hav e a drink containing alcohol? Never [facility] How many standard dr inks containing alcohol do you have on a typical day? Patient does not drink [facility] Do you feel stress - tense, restless, nervous, or anxious, or unable to sleep at night because your mind is troubled all the time - these days [OSQ] Rather much [facility] (I/We) worried wheth er (my/our) food would run out before (I/we) got money to buy more. Never true [facility] In the past 12 month s, was there a time when you were not able to pay the mortgage or rent on time? No [facility] Sexual Orientation [place] [facility] Start: 11-18-2022 Sex Male (finding) [facility] Medical Equipment Procedure Code Equipment Code Equipment Origin al Text Equipment Identifier Dates ORIF, ankle 4.0 CANNULATED SCREW FDA Sta rt: 08-07-2023 ORIF, ankle 4.0 CANNULATED SCREW FDA Sta rt: 08-07-2023 ORIF, ankle CANCELLOUS SCREW FDA Start: 08-07-2023 ORIF, ankle CANCELLOUS SCREW FDA Start: 08-07-2023 ORIF, ankle CANCELLOUS SCREW FDA Start: 08-07-2023 ORIF, ankle Orthopaedic bone pin, non-bioabsorbable ([id number] FDA Start: 08-07-2023 Omnilink Elite Subclavian Stent [...] Safety Abigail olsen q2hrs Performed Other: 7am-1245pm [facility] 09-18-2024 Functional Status Sequential Com pression Device bilateral knee high removed/off [facility] 09-18-2024 Functional Status Identified as high risk, Fall ID band on, Bed alert on, Non-Slip footwear, Room check performed [facility] 09-18-2024 Functional Status Sonny Duran [facility] 09-18-2024 Functional Status Sonny Duran [facility] 09-17-2024 Functional Status Sonny Duran [facility] 09-17-2024 Functional Status Min A Sonny [facility] 09-17-2024 Functional Status Sonny [facility] 09-17-2024 Functional Status Sonny [facility] 09-16-2024 Functional Status Max A [facility] 09-16-2024 Functional Status Single level home [facility] 09-16-2024 Functional Status Positioning Re positions self [facility] 09-15-2024 Functional Status Sensory Defici ts Blind, left eye [facility] 09-15-2024 [facility] Functional status Bedrest [facility] Work Phone: 07-26-2023 Functional Status Assistive Device Cane A [facility] 07-26-2023 Functional Status Standard Safet y ID band on, Call device within reach, Bed in low position, Wheels locked, Upper/Half-Length side-rails up, Phone within reach [facility] 03-21-2023 Functional Status Up ad marilu [facility] 03-21-2023 Functional Status Standard Safet y ID band on, Call device within reach, Wheels locked, Visitor at bedside [facility] 11-19-2022 Functional Status Single level home [facility] 11-19-2022 Functional Status [facility] 11-18-2022 Functional Status heel(s)s elevated [facility] 11-15-2022 Functional status Ambulates;Chair [facility] Work Phone: 08-17-2022 Functional status Chair [facility] Work Phone: 08-23-2021 Functional status Ambulates [facility] Work Phone: 08-22-2021 Functional status Ember Walker [facility] Work Phone: 02-03-2015 Are you deaf, or do you have serious difficulty hearing No 02/03/2015 3:59 PM EDT Dimple Agustin LPN No [facility] 02-03-2015 Are you blind, or do you have serious difficulty seeing, even when wearing glasses No 02/03/2015 3:59 PM EDT Dimple Agustin LPN No [facility] 02-03-2015 Do you have serious difficulty walking or climbing stairs No 02/03/2015 3:59 PM EDT Dimple Agustin LPN No [facility] 02-03-2015 Do you have difficul ty dressing or bathing No 02/03/2015 3:59 PM EDT Dimple Agustin LPN No [facility] 02-03-2015 Because of a physica l, mental, or emotional condition, do you have difficulty doing errands alone such as visiting a physician's office or shopping No 02/03/2015 3:59 PM EDT Dimple Agustin LPN No [facility] Mental Status Date Assessment Result Facility 09-18-2024 Mental Status Orientation Asse ssment Identifies self [facility] 09-17-2024 [facility] 09-17-2024 Mental Status [facility] 09-15-2024 Mental Status Orientation Oriented x 4 [facility] 08-09-2023 Cognitive function Voice/Name [facility] Work Phone: 07-26-2023 Mental Status Orientation Foll ows simple commands [facility] 07-26-2023 Mental Status [facility] 03-21-2023 Mental Status Orientation Oriented x 4 [facility] 03-21-2023 Mental Status [facility] 11-19-2022 Mental Status Not oriented to place, Not oriented to time, Follows simple commands [facility] 11-19-2022 Mental Status [facility] 11-18-2022 Mental Status [facility] 11-18-2022 Mental Status [facility] 11-15-2022 Cognitive function Voice/Name [facility] Work Phone: 11-11-2022 Cognitive function Level Of Cons ciousness Awake;Alert;Appropriate;Fol lows Commands [facility] Work Phone: 08-17-2022 Cognitive function Demonstrates ability to follow instructions/comprehend [facility] Work Phone: 08-23-2021 Cognitive function Voice/Name [facility] Work Phone: 02-03-2015 Because of a physica l, mental, or emotional condition, do you have serious difficulty concentrating, remembering, or making decisions 02/03/2015 3:59 PM EDT Dimple Agustin LPN No [facility] Clinical Notes 06-06-2010 to 03-08-2025 Telephone Encounter - Monica Cruz MA - 03/08/2025 3:32 PM EDTTelephone Encounter - Monica Cruz MA - 03/08/2025 3:32 PM EDTNENITA SENA - 03/02/2025 1:19 PM EDTPatient Instructions Note Date & Type Note Facility 03-08-2025 Telephone encounter Note Spoke with pt , Eli. Letter at medical records for pickle cutter. Monica Cruz MA [facility] 03-08-2025 Miscellaneous Notes Spoke with pt , Eli. Letter at medical records for pickle cutter. Monica Cruz MA Letter printed Jaci Arroyo [...] Raiza John RN documented in this encounter [facility] 03-08-2025 Telephone encounter Note Letter printed Jaci Arroyo MD [facility] 03-08-2025 Telephone encounter Note Spouse (Eli) calls [...] Please review and advise, Raiza John RN [facility] 03-02-2025 Note HNO ID: [id number] Author: ?, ?, ? Service: ? Author [...] assessed by LIP pre and post procedure [facility] 03-02-2025 History of Presen t illness Narrative Ambulatory Ear Lavage Pre-treatment: No pre-treatment Treatment: Both ears Equipment and Irrigation solution and Volume used: Single use syringe with single use irrigation tip Water Total Irrigation Volume: 400mL Return flow appearance: Debris Patient tolerated procedure: yes Tympanic membrane assessment: Tympanic membrane assessed by LIP pre and post procedure . documented in this encounter [facility] 03-02-2025 Note HNO ID: [id number] Author: MARIANO BECKMAN APRN.ESTELLA Service: ? Author Type: Nurse Practitioner Type: Progress Notes Filed: 03/02/2025 13:41 Note Text: . [facility] 02-18-2025 Telephone encounter Note Faxed recent pcp ov notes to [facility], per request. Confirmation received. Reports [facility] informed her [facility] could move into [facility]2 weeks but they would need pcp ov notes. reports pt is having trouble with balance. [facility] 02-18-2025 Miscellaneous Notes Faxed recent pcp ov notes to [facility], per request. Confirmation received. Reports [facility] informed her [facility] could move into [facility] in 1-2 weeks but they would need pcp ov notes. reports pt is having trouble with balance. documented in this encounter [facility] 02-17-2025 Telephone encounter Note Called back and patient's , Eli, wanted to verify that the metoprolol was discontinued at last office visit with Dr. Johansen. Note reviewed and verified. Medication is d/c'd in Epic. Rody Main RN [facility] 02-17-2025 Miscellaneous Notes Called back and patient's [...] Care has. Please call spouse back at [phone]. Thank you! Karlee Delarosa documented in this encounter [facility] 02-15-2025 Telephone encounter Note Pt notified. Monica Cruz MA [facility] 02-15-2025 Miscellaneous Notes Pt notified. Monica Cruz [...] this has been done. Dimple Agustin LPN documented in this encounter [facility] 02-15-2025 Telephone encounter Note OK to refill as ordered Jaci Arroyo MD [facility] 02-15-2025 Telephone encounter Note Pt's calls to [...] this has been done. Dimple Agustin LPN [facility] 02-15-2025 Telephone encounter Note Patient called in and asked that a nurse of Dr Johansen please call her back LUCÍA. There is a question regarding a medication that [facility] has. Please call spouse back at [phone]. Thank you! Karlee Delarosa [facility] 02-03-2025 Telephone encounter Note Pt's was calling in asking questions about when he needed to get his labs done that Dr Arroyo had ordered in January. I let her know he was to get those done closer to his April appointment. She verbalized understanding. She reports Pt got the Pregabalin done when [facility] was [facility] the [facility]. Khris Gutierrez RN [facility] 02-03-2025 Miscellaneous Notes Pt's was calling in asking questions about when he needed to get his labs done that Dr Arroyo had ordered in January. I let her know he was to get those done closer to his April appointment. She verbalized understanding. She reports Pt got the Pregabalin done when he was in the [facility]. Khris Gutierrez RN documented in this encounter [facility] 02-01-2025 Instructions Robin Johansen MD - 02/01/2025 10:02 AM EDT We are stopping the Metoprolol USE YOUR WALKER documented in this encounter [facility] 02-01-2025 History of Presen t illness Narrative Images from the original note were not included. [facility] SECTION [facility] REGIONAL CARDIOLOGY Cardiology ([address]) [address] [facility] [address] OUTPATIENT VISIT DATE 02/01/2025 PRIMARY CARE PHYSICIAN: Jaci Arroyo [address] [facility] [place] [facility] [place] [address] HISTORY OF PRESENT ILLNESS: Mr. 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) History of blood transfusion 03/2023 Hypertension Hypoxia 03/2023 DARON (obstructive sleep apnea) PVD (peripheral vascular disease) Respiratory failure (HCC) hypoxic-ventilator dependent Stroke (cerebrum) ([facility]) Tobacco abuse PAST SURGICAL HISTORY Procedure Laterality Date ANKLE SURGERY HX Right 08/07/2023 Dr. Kim. Right ankle ORIF due to fracture CABG CONSULT 10/30/2016 multi vessel COLONOSCOPY SCREENING 04/10/2023 EGD W/O [facility] SPEC VARICIES INJ 04/11/2023 EGD W/O BRS [...] Problem Relation Age of Onset Heart Mother OR in her 70s, pacemaker Diabetes Mother Stroke [...] L/min by Nasal Cannula route as directed. vgtrlqzvpoz-njbwzixtx-pwjuigff (TRELEGY ELLIPTA) 100-62.5-25 mcg inhalation powder Inhale [...] (FLONASE) 50 mcg/actuation nasal spray Use 1 Premium in each nostril two times a day. [...] foot brace for right leg. Send to [email or web address]. Dx: I63.9 COMPOUNDED PRESCRIPTION EMBER WALKER DX [...] prior CC echocardiographic exam for comparison. Echocardiogram [facility] 12/16/2020: Left ventricular systolic function is normal [...] AND RECOMMENDATIONS: 1. Coronary artery disease involving [place] coronary artery of [place] heart without angina pectoris - ICD9: 414.01, [...] Robin Johansen MD documented in this encounter [facility] 02-01-2025 Note HNO ID: [id number] Author: ROBIN JOHANSEN MD Service: ? Author Type: Physician Type: Progress Notes Filed: 02/01/2025 12:09 Note Text: [facility]IONAL CARDIOLOGY Cardiology ([facility]) [address] [facility] [address] OUTPATIENT VISIT DATE 02/01/2025 PRIMARY CARE PHYSICIAN: Jaci Arroyo [address] [place] [address] HISTORY OF PRESENT ILLNESS: Mr. 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) hypoxic-ventilator dependent Stroke (cerebrum) ([facility]) Tobacco abuse PAST SURGICAL HISTORY Procedure Laterality Date ANKLE SURGERY HX Right 08/07/2023 Dr. Kim. Right ankle ORIF due to fracture CABG CONSULT 10/30/2016 multi vessel COLONOSCOPY SCREENING 04/10/2023 EGD W/O [facility] SPEC VARICIES INJ 04/11/2023 EGD W/O [facility] SPEC VARICIES INJ 04/10/2023 HEART CATHETERIZATION 09/17/2016 [...] Problem Relation Age of Onset Heart Mother OR in her 70s, pacemaker Diabetes Mother Stroke [...] 1 tablet by (more content not included)... [facility] 01-18-2025 Note Patient Outreach (PU LMMN) AFSHIN ZEE ([id number]) 1955 M Date Time Provider Department 01/18/25 [...] abuse [Z72.0] Order(s):CONSULT LUNG CANCER SCREENING CLINIC [[id number]] Order #: [id number]: 1 FUTURE Prescriptions as of 01/21/2025 - [...] by Nasal Cannula route as directed. - bkiqiasdmsl-wtiobtevv-nhknnkmh (TRELEGY ELLIPTA) 100-62.5-25 mcg inhalation powder Inhale [...] (FLONASE) 50 mcg/actuation nasal spray Use 1 Premium in each nostril two times a day. [...] foot brace for right leg. Send to [email or web address]. Dx: I63.9 - COMPOUNDED PRESCRIPTION EMBER WALKER DX I63.9 weight 162 # Problem List As Of Date 01/18/2025 Noted Resolved Hyperlipidemia [E78.5] 06/06/2010 Elevated blood pressure [DZF9666] 06/06/2010 03/20/2019 Erectile dysfunction [N52.9] 06/06/2010 Cervicalgia [M54.2] 04/16/2016 Chronic right shoulder pain [M25.511, G89.29] 04/16/2016 Occlusion of left carotid artery [I65.22] 07/02/2016 Stroke (cerebrum) (HCC) [I63.9] Aneurysm (HCC) [I72.9] Essential hypertension [I10] 06/25/2017 Anxiety [F41.9] 09/04/2017 Chronic insomnia [F51.04] 04/04/2018 Right hemiplegia (HCC) [G81.91] 04/30/2018 Bradycardia [R00.1] 03/20/2019 Dysphasia [R47.02] Coronary artery disease involving [place] matos*04/02/2021 Paroxysmal atrial fibrillation (HCC) [I48.0] 04/03/2021 [...] Encounter Number: [id number] (more content not included)... [facility] 01-14-2025 History of Presen t illness Narrative Chief Complaint Patient presents with: [facility] discharge: [facility] falls HPI Afshin Zee is a 69 year old male who presents here today for shelter discharge follow up. Here with . Pt d/c from [facility] on 01/13[facility]25 for frequent falls and respite [...] multi vessel COLONOSCOPY SCREENING 04/10/2023 EGD W/O [facility] SPEC VARICIES INJ 04/11/2023 EGD W/O BRS SPEC VARICIES INJ 04/10/2023 HEART CATHETERIZATION 09/17/2016 PAST SURGICAL HISTORY OF 2017 Aneurysm and stent surgery related to stroke TRACHEOSTOMY HX Family History FAMILY HISTORY Problem Relation Age of Onset Heart Mother OR in her 70s, pacemaker Diabetes Mother Stroke [...] daily. (Patient not taking: Reported on 11/10/2024) dgqymxdefbh-tzjysbvqm-tborpkzm (TRELEGY ELLIPTA) 100-62.5-25 mcg inhalation powder Inhale 1 Puff as instructed once daily. metoprolol tartrate, short acting, (LOPRESSOR) 25 mg tablet Take 0.5 tablets by mouth two times a day. fluticasone (FLONASE) 50 mcg/actuation nasal spray Use 1 Premium in each nostril two times a day. [...] foot brace for right leg. Send to [email or web address]. Dx: I63.9 COMPOUNDED PRESCRIPTION EMBER WALKER DX [...] CONSULT TO PHYSICAL THERAPY - CONSULT TO CLINICAL PSYCHIATRIST - CONSULT TO SPEECH THERAPY 13. Stage 3a chronic kidney disease (HCC) - ICD9: 585.3, ICD10: N18.31 - eGFR: 61 Stable Monitor Follow up in 3 months with labs and virtual visit I agree with the Chief Complaint, ROS, and Past Histories independently gathered by the clinical technical sales support manager and the remaining scribed note accurately describes [...] Monica Cruz MA documented in this encounter [facility] 01-14-2025 Note HNO ID: [id number] Author: JACI ARROYO MD Service: ? Author Type: Physician Type: Progress Notes Filed: 01/14/2025 17:11 Note Text: Chief Complaint Patient presents with: [facility] discharge: [facility] HPI Afshin Zee is a 69 year old male who presents here today for shelter discharge follow up. Here with . Pt d/c from [facility] on 01/13/25 for frequent falls and [...] multi vessel COLONOSCOPY SCREENING 04/10/2023 [facility] VARICIES INJ 04/11/2023 EGD W/O [facility] SPEC VARICIES INJ 04/10/2023 HEART CATHETERIZATION 09/17/2016 PAST SURGICAL HISTORY OF 2017 Aneurysm and stent surgery related to stroke TRACHEOSTOMY HX Family History FAMILY HISTORY Problem Relation Age of Onset Heart Mother OR in her 70s, pacemaker Diabetes Mother Stroke [...] daily. (Patient not taking: Reported on 11/10/2024) eqjnnxacshx-lwmqsbvau-grhteiud (TRELEGY ELLIPTA) 100-62.5-25 mcg inhalation powder Inhale 1 Puff as instructed once daily. metoprolol tartrate, short acting, (LOPRESSOR) 25 mg tablet Take 0.5 tablets by mouth two times a day. fluticasone (FLONASE) 50 mcg/actuation nasal spray Use 1 Premium in each nostril two times a day. [...] daily apixaban (ELIQU (more content not included)... [facility] 01-07-2025 Telephone encounter Note CMN form has been completed and faxed back to information below. Rachel Buckley MA [facility] 01-07-2025 Miscellaneous Notes CMN form has been completed and faxed back to information below. Rachel Buckley MA Office received new CMN for incontinence supplies. Routed to PCP's desk. Once complete fax back to [phone]. Rachel Buckley MA [facility] sent fax asking for Medical Records on pt. Date of service needed is 07/30/24 regarding his incontinence. I do not see that pt was seen in office that day. Please review. [place] fax # [phone] Monica Cruz MA documented in this encounter [facility] 01-07-2025 Telephone encounter Note Office received new CMN for incontinence supplies. Routed to PCP's desk. Once complete fax back to [phone]. Rachel Buckley MA [facility] 12-31-2024 Note HNO ID: [id number] Author: PHONG WILHELM MD Service: ? Author Type: Physician Type: Progress Notes Filed: 01/01/2025 11:44 Note Text: [facility] STAFF PHYSICIAN NOTE OF PERSONAL [...] visit. Either the patient or their legal loss control representative has been informed of the risks and [...] which included: preparing to see the patient wciz-jw-uzpw patient care completing clinical documentation obtaining and/or reviewing separately obtained history counseling and educating the patient/family/caregiver SIGNATURE: Phong Wilhelm MD DATE of SERVICE: December 31, 2024 TIME of SERVICE: 2:05 PM [facility] 12-31-2024 History of Presen t illness Narrative [facility] STAFF PHYSICIAN NOTE OF PERSONAL [...] visit. Either the patient or their legal loss control representative has been informed of the risks and [...] which included: preparing to see the patient lzun-iz-gldk patient care completing clinical documentation obtaining and/or reviewing separately obtained history counseling and educating the patient/family/caregiver SIGNATURE: Phong Wilhelm MD DATE of SERVICE: December 31, 2024 TIME of SERVICE: 2:05 PM [facility] Patient Name: Afshin Zee Date of : 1955 ESTABLISHED EPILEPSY CLINIC NOTE 12/31/2024 1:30 PM Reason for Visit: Follow Up and Seizures Clinical Summary: Mr. Zee is a 69 year old now left handed (since stroke) male seen in [facility]. Focal Epilepsy (Localization Undetermined) Seizures: [...] daily. Interval Seizure History Patient's and nursing program manager at the facility are present for the visit. He is not available to be in the visit. He has having several falls since last visit. They reduced (self reduced) Lyrica to 50 mg BID from 75 mg BID. He has remained stable since and has not had any seizures. He also has not had any falls - nursing program manager reports he is removed from the 'high [...] - Seizure risk factors: Brain Tumor No LUMBER INSPECTOR Infections No Developmental Delay No Family history of seizures No Febrile Seizure No Complications No Stroke Yes Traumatic Brain Injury No Previous Epilepsy Evaluations EEG 06/15/24, [facility]: Left temporal sharp waves Other caregivers: Primary [...] daily. (Patient not taking: Reported on 11/10/2024) bmbuormllvp-awgmlykqo-ixhvreit (TRELEGY ELLIPTA) 100-62.5-25 mcg inhalation powder Inhale 1 Puff as instructed once daily. metoprolol tartrate, short acting, (LOPRESSOR) 25 mg tablet Take 0.5 tablets by mouth two times a day. fluticasone (FLONASE) 50 mcg/actuation nasal spray Use 1 Premium in each nostril two times a day. [...] foot brace for right leg. Send to [email or web address]. Dx: I63.9 COMPOUNDED PRESCRIPTION EMBER WALKER DX [...] Problem Relation Age of Onset Heart Mother OR in her 70s, pacemaker Diabetes Mother Stroke Father other (AAA) Father other (CAD) Brother Hypertension Brother SOCIAL HISTORY: -Lives in [place], [place] -Patient lives alone? No -Vocation: -Education: [...] the date of the service which included: pijr-vb-lduq patient care obtaining and/or reviewing separately obtained history counseling and educating the patient/family/caregiver ordering medications, tests, or procedures Joycelyn Woodruff MD cc: Primary Care Physician: Jaci Arroyo MD [address] [facility] [address] Referring: Patient: Mr. Afshin Zee [address] [facility] [address] [facility] [address] documented in this encounter [facility] 12-31-2024 Note HNO ID: [id number] Author: JOYCELYN WOODRUFF MD Service: ? Author Type: Fellow Type: Progress Notes Filed: 01/01/2025 11:44 Note Text: [facility] Patient Name: Afshin Zee Date of : 1955 ESTABLISHED EPILEPSY CLINIC NOTE 12/31/2024 1:30 PM Reason for Visit: Follow Up and Seizures Clinical Summary: Mr. Zee is a 69 year old now left handed (since stroke) male seen in [facility]. Focal Epilepsy (Localization Undetermined) Seizures: [...] daily. Interval Seizure History Patient's and nursing program manager at the facility are present for the visit. He is not available to be in the visit. He has having several falls since last visit. They reduced (self reduced) Lyrica to 50 mg BID from 75 mg BID. He has remained stable since and has not had any seizures. He also has not had any falls - nursing program manager reports he is removed from the 'high [...] - higher score (more content not included)... [facility] 12-26-2024 [facility]. Date of service needed is 07/30/24 regarding his incontinence. I do not see that pt was seen in office that day. Please review. [place] fax # [phone] Monica Cruz MA [facility] 12-03-2024 Note HNO ID: [id number] Author: CONSUELO FAROOQ APRN.LAUNDRY OPERATOR WASH ROOM Service: ? Author Type: Nurse Practitioner Type: [...] multi vessel COLONOSCOPY SCREENING 04/10/2023 EGD W/O [facility] SPEC VARICIES INJ 04/11/2023 EGD W/O BRS SPEC VARICIES INJ 04/10/2023 HEART CATHETERIZATION 09/17/2016 PAST SURGICAL HISTORY OF 2017 Aneurysm and stent surgery related to stroke TRACHEOSTOMY HX Family History FAMILY HISTORY Problem Relation Age of Onset Heart Mother OR in her 70s, pacemaker Diabetes Mother Stroke [...] daily. (Patient not taking: Reported on 11/10/2024) acymanjhcyd-irsmsqgxs-qqoeizwg (TRELEGY ELLIPTA) 100-62.5-25 mcg inhalation powder Inhale 1 Puff as instructed once daily. metoprolol tartrate, short acting, (LOPRESSOR) 25 mg tablet Take 0.5 tablets by mouth two times a day. fluticasone (FLONASE) 50 mcg/actuation nasal spray Use 1 Premium in each nostril two times a day. [...] pain. (Patient not (more content not included)... [facility] 12-03-2024 History of Presen t illness Narrative [...] multi vessel COLONOSCOPY SCREENING 04/10/2023 EGD W/O [facility] SPEC VARICIES INJ 04/11/2023 EGD W/O [facility] SPEC VARICIES INJ 04/10/2023 HEART CATHETERIZATION 09/17/2016 PAST SURGICAL HISTORY OF 2017 Aneurysm and stent surgery related to stroke TRACHEOSTOMY HX Family History FAMILY HISTORY Problem Relation Age of Onset Heart Mother OR in her 70s, pacemaker Diabetes Mother Stroke [...] daily. (Patient not taking: Reported on 11/10/2024) ogrnbvzotdn-fatjycpiz-djiggcei (TRELEGY ELLIPTA) 100-62.5-25 mcg inhalation powder Inhale 1 Puff as instructed once daily. metoprolol tartrate, short acting, (LOPRESSOR) 25 mg tablet Take 0.5 tablets by mouth two times a day. fluticasone (FLONASE) 50 mcg/actuation nasal spray Use 1 Premium in each nostril two times a day. [...] foot brace for right leg. Send to [email or web address]. Dx: I63.9 COMPOUNDED PRESCRIPTION EMBER WALKER DX [...] - CETIRIZINE 10 MG TABLET Consuelo Farooq APRN.LAUNDRY OPERATOR WASH ROOM documented in this encounter [facility] 12-03-2024 Telephone encounter Note Patient's Eli calling [...] made for pt today. Amaya Kessler RN [facility] 12-03-2024 Miscellaneous Notes Patient's Eli calling in. [...] Amaya Kessler RN documented in this encounter [facility] 12-02-2024 Telephone encounter Note Cathy from [facility] calls and reports that [facility] [place] [facility] permanent placement. Jayde Laughlin RN [facility] 12-02-2024 Miscellaneous Notes Cathy from [facility] calls and reports that patient will [facility] [place] for permanent placement. Jayde Laughlin RN documented in this encounter [facility] 11-28-2024 Telephone encounter Note Will need Rx sent to DME [facility] 11-28-2024 Miscellaneous Notes Will need Rx sent to DME Any PA would come from the DME company, not the office the [employer] has the codes that insurance would need, not the office. Jacky Nathanielvijay- phoned in with , Eli, on another line. Reports pt needs pcp to do PA on Power Wheel Chair with gears on the left side. Pt is only able to use his left side due to stroke. Reports patient is now wheel chair bound and is living permanent at [facility] in [place]. Please fax PA to attn: [employer], [employer] [place]. . Plan ID # [id number]. Medicaid # [id number]. Phone # for [facility]: [phone] It will take 14 calendar days for PA to get approved. Pt weighs 197# and is 5'10 tall. DME's to send order to: [employer]. . In [place], [place] Or: [employer] has 3 locations: all in [place]: 2 in [place]. Or: 1 in [place]. These DME's will ship the power wheelchair to [facility]. documented in this encounter [facility] 11-27-2024 Telephone encounter Note Any PA would come from the DME company, not the office the DME company has the codes that insurance would need, not the office. [facility] 11-27-2024 Telephone encounter Note Jacky Tom- phoned in with , Eli, on another line. Reports pt needs pcp to do PA on Power Wheel Chair with gears on the left side. Pt is only able to use his left side due to stroke. Reports patient is now wheel chair bound and is living permanent at [facility] in [place]. Please fax PA to attn: [employer], [facility]. . Plan ID # [id number]. Medicaid # [id number]. Phone # for Carmen: [phone] It will take 14 calendar days for PA to get approved. Pt weighs 197# and is 5'10 tall. DME's to send order to: [facility] . In [place], [place] Or: [employer] has 3 locations: all in [place]: 2 in [place]. Or: 1 in [place]. These DME's will ship the power wheelchair to [facility]. [facility] 11-10-2024 Instructions Deanne Cruz DO - 11/10/2024 5:10 PM EDT Reviewed ultrasound findings- no significant change Your stent is working No new carotid artery or vertebral artery blockages Plan to follow up in one year with repeat ultrasound No changes in medications documented in this encounter [facility] 11-10-2024 History of Presen t illness Narrative Images from the original note were not included. [facility] DEPARTMENT OF VASCULAR SURGERY OUTPATIENT VISIT TYPE [...] multi vessel COLONOSCOPY SCREENING 04/10/2023 EGD W/O [facility] SPEC VARICIES INJ 04/11/2023 EGD W/O [facility] SPEC VARICIES INJ 04/10/2023 HEART CATHETERIZATION 09/17/2016 [...] two times a day for 180 days. iwutvheynly-tcklxzwyu-jhvlfqrz (TRELEGY ELLIPTA) 100-62.5-25 mcg inhalation powder Inhale 1 Puff as instructed once daily. metoprolol tartrate, short acting, (LOPRESSOR) 25 mg tablet Take 0.5 tablets by mouth two times a day. fluticasone (FLONASE) 50 mcg/actuation nasal spray Use 1 Premium in each nostril two times a day. [...] foot brace for right leg. Send to [email or web address]. Dx: I63.9 COMPOUNDED PRESCRIPTION EMBER WALKER DX [...] TIME: 11:27 AM documented in this encounter [facility] 11-10-2024 Note HNO ID: [id number] Author: DEANNE CRUZ, DO Service: ? Author Type: Physician Type: Progress Notes Filed: 11/20/2024 12:55 Note Text: Heart , Vascular [facility] Thor[facility] DEPARTMENT OF VASCULAR SURGERY OUTPATIENT VISIT TYPE [...] apnea) PVD (peripheral vascular disease) Respiratory failure ([facility]) hypoxic-ventilator dependent Stroke (cerebrum) ([facility]) Tobacco abuse PAST SURGICAL HISTORY Procedure Laterality Date ANKLE SURGERY HX Right 08/07/2023 Dr. Kim. Right ankle ORIF due to fracture CABG CONSULT 10/30/2016 multi vessel COLONOSCOPY SCREENING 04/10/2023 EGD W/O [facility] SPEC VARICIES INJ 04/11/2023 EGD W/O BRS [...] two times a day for 180 days. ovtldkoiurc-pptgdswmp-qdsqvrku (TRELEGY ELLIPTA) 100-62.5-25 mcg inhalation powder Inhale 1 Puff as instructed once daily. metoprolol tartrate, short acting, (LOPRESSOR) 25 mg tablet Take 0.5 tablets by mouth two times a day. fluticasone (FLONASE) 50 mcg/actuation nasal spray Use 1 Premium in each nostril two times a day. [...] mouth three times (more content not included)... [facility] 10-22-2024 Telephone encounter Note Noted, thank you! [facility] 10-22-2024 Miscellaneous Notes Noted, thank you! Patient's calling and states her has [facility]. States his oxygen levels have been good and not needing his oxygen at night. Spoke with his nurse Ricardo CALDWELL is going to get an update from Dr. Warren and call back with that update. documented in this encounter [facility] 10-22-2024 Telephone encounter Note Patient's calling and states her has recently been [facility] to the [facility]. States his oxygen levels have been good and not needing his oxygen at night. Spoke with his nurse Ricardo CALDWELL is going to get an update from Dr. Warren and call back with that update. [facility] 10-22-2024 Telephone encounter Note Results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 allowing [facility] to assist you with your healthcare needs. [...] Ordered -- 09/18/24 10:21:00 ESTWILLIAM RACHEL L APRN-LAUNDRY OPERATOR WASH ROOM Transfer of Care Oxygen Therapy - Ordered [...] using certain medicine); or a history of Guillain-[place] syndrome (within 6 weeks after receiving a [...] affect influenza virus vaccine, including prescription and eesy-zjg-bvdgcsg medicines, vitamins, and herbal products. Tell your [...] to ensure that the information provided by [employer]. ('[employer]') is accurate, up-to-date, and complete, but no guarantee is made to that effect. Drug information contained herein may be time sensitive. [employer] information has been compiled for use by healthcare practitioners and consumers in the [place] and therefore [employer] does not warrant that uses outside of the [place] are appropriate, unless specifically indicated otherwise. [facility] drug information does not endorse drugs, diagnose patients or recommend therapy. [employer] drug information is an informational resource designed [...] effective or appropriate for any given patient. [employer] does not assume any responsibility for any aspect of healthcare administered with the aid of information [employer] provides. The information contained herein is not intended to cover all possible uses, directions, precautions, warnings, drug interactions, allergic reactions, or adverse effects. If you have questions about the drugs you are taking, check with your doctor, nurse or pharmacist. Copyright 7829-9289 [employer]. Version: 14.02. Revision Date: 03/17/2024. Education Materials [...] about working with a physical therapist or crew trainer to help you get stronger. General instructions Take xsmr-hma-kspipeu and prescription medicines only as told by [...] 07/04/2009 Document Revised: 02/25/2019 Document Reviewed: 02/25/2019 L2 Patient Education 2020 [employer]. Additional Information VACCINATE! IT SAVES LIVES! Members of the community who have not yet received the COVID-19 vaccine and would like to receive it can visit one of [facility] vaccine clinics. There are many vaccine clinic locations within the [facility]. For locations and available times, please visit https://gettheshot.coronavirus.[place].gov/. It is important to note that some COVID mobile vaccine clinics are held outdoors and may be canceled in rainy or stormy conditions. To learn more about pediatric vaccinations (ages 5-11), we invite you to visit the [facility] webpage. [email or web address] [email or web address]-[email or web address] gbokqz-[email or web address]-[email or web address].html To learn more about the COVID-19 vaccine, we invite you to visit the CDC website for a list of frequently asked questions.https://www.cdc.gov/co ronavirus/2019-ncov/vaccines/faq .html [facility] Patient Portal Access Instructions: Stay connected with your healthcare team and access your personal medical information anytime with the [facility] Patient Portal. Please follow the directions below to create your [facility] account: 1.Access the email account you provided upon registration to the hospital/physician office.2.Look for an invitation email from [facility].3.Open the email and access the invitation link: Accept Invitation to [facility].4.Fill in the required krueger to create your account. To access your account, visit [email or web address]. Click the blue button labeled Access Patient [...] you will allow to register on the [facility] Patient Portal for access to your information. You can also access the [facility] Patient Portal on the [employer] Anywhere rigo. Simply click on Patient Portal and then log into your account. If you would like to receive a full copy of your medical records, please contact the [facility] Medical Records Department by calling [phone], Saturday through Saturday between 8 a.m. and [...] Call your local pharmacy or go to [email or web address]! [email or web address] to find one close to you.3.Make use of household items: Use cat litter or old coffee grounds to dispose medications if other options are not available. Mix your drugs with these household products, seal them in an airtight container and throw it into the garbage. Call [facility]: [phone] to be sure your drugs can be [...] CHART COPY. Signatures Patient Education Materials Weakness, Rqkk-mo-Vvzh Medication Leaflets influenza virus vaccine, inactivated adjuvanted preservative-free quadrivalent intramuscular suspens My discharge plan and instructions have been reviewed and explained to me and I,AFSHIN ZEE understand my current condition and have read and understand these discharge instructions. I have received a written copy of the plan/instructions. If I have questions, I am aware that I should contact my doctor. Patient/[employer] Signature: Date/Time: Relationship to Patient: Witness Name/Signature: Date/Time: [facility] 09-17-2024 Note Date of Service 09/17/24 Chief Complaint Weakness Subjective 69-year-old male with past medical history significant for HTN, HLD, CAD s/p CABG, paroxysmal atrial fibrillation anticoagulated with apixaban, CVA with aphasia, COPD, frequent falls, JENN(declines w/u). Patient presented to [facility] emergency department on 09/15/2024 with increased [...] therapy. Patient has been accepted at [facility], precert has been started. Patient has no [...] tab(s), Oral, BID fluticasone nasal 0.05 mg/inh Premium 50 mcg 1 spray(s), Nostril, each, BID [...] by KYLIE BLUM on 09/17/2024 02:54 PM [facility] 09-16-2024 Note Date of Service 09/16/2024 Chief [...] atrial fibrillation, CVA and COPD, presents to [facility] emergency department with the chief complaint of [...] PT and OT to evaluation and treat. administrative services assistant following for discharge planning. Repeat CBC and [...] deconditioning. Consult placed to PT and OT. foundry worker apprentice following for discharge planning. 2. Atrial fibrillation [...] by RICARDO MARIE on 09/16/2024 04:53 PM [facility] 09-16-2024 Evaluation + Plan note Extrac arpit from: Title:History and Physical Author:RICARDO MARIE Date:09/16/24 1. Weakness Acute, likely secondary to deconditioning. Consult placed to PT and OT. foundry worker apprentice following for discharge planning. 2. Atrial fibrillation [...] collaborating with physician, and documenting in chart. [facility] 02-12-2025 Pastoral care Progress note Pastoral Care Note Entered On: 09/16/2024 9:48 EST Performed On: 09/16/2024 9:45 EST by Johny Morales Pastoral Care Type of Pastoral Visit : Initial visit Spiritual Care Visit Initiated by : Care Attendant Spiritual Care Reason for Visit : General [...] by Johny Morales on 09/16/2024 09:45 AM [facility]02-12-2025 HCoV 229E RNA PAMELA+non-probe Ql (Nph) Not Detected *NA* (09/16/24 8:22 AM)AH Auto Viro/Sero [id number] Note* Exam Date Time Procedure Performing Provider Status 09/15/24 4:[address] Head or Brain w/o Contrast Dany SHI MD; Auth (Verified) [id number] ORIGINAL HISTORY: Fall COMPARISON: 26 July 2023 [...] 09/15/2024 4:36:30 PM Ordering Provider: NASIM ANDERS [facility]02-11-2025 Note* Exam Date Time Procedure Performing Provider Status 09/15/24 3:04 PM XR Chest 1 View ZO TSEVENS MD; Auth (Verified) [id number] ORIGINAL EXAMINATION: ONE XRAY VIEW OF THE [...] 09/15/2024 3:27:25 PM Ordering Provider: NASIM ANDERS [facility]02-11-2025 Note* Exam Date Time Procedure Performing Provider Status 09/15/24 3:02 PM EKG [ED AOH] - CV MATTHEW AVALOS MD; Auth (Verified) ECG Final Report Sinus rhythm Prolonged SC interval RSR' in V1 or V2, right VCD or RVH Inferior infarct, old Electronic Signature: MATTHEW AVALOS MD 09/15/2024 15:10:32 [facility]02-11-2025 Telephone encounter Note* Telephone Encounter - Kassandra [...] pt's son, her step-son was killed in [place] yesterday. She isn't sure if anyof this could be from pt's response to that but with all that is going on and hx of stroke, pt should go to hospital ER to be evaluated. Eli does not want to take him to [facility] and states she can onlydrive someplace local so she is going to take him to [facility] and if they have to transfer him anywhere, she will ask for him to be taken to a [facility] facility. Eli is very concerned about pt [...] liquid stool with chunks Protocols used: Neurologic Vxoskqa-DRXBQ-PM, Weakness (Generalized) and Auzribg-YFTUO-AS, Urinary Kpfyjsto-SPODQ-SF [facility]02-11-2025 Miscellaneous Notes* Telephone Encounter - Kassandra Okeefe [...] pt's son, her step-son was killed in [place] yesterday. She isn't sure if anyof this could be from pt's response to that but with all that is going on and hx of stroke, pt should go to hospital ER to be evaluated. Eli does not want to take him to [facility] and states she can onlydrive someplace local so she is going to take him to [facility] and if they have to transfer him anywhere, she will ask for him to be taken to a [facility] facility. Eli is very concerned about pt [...] liquid stool with chunks Protocols used: Neurologic Kwmuzvj-VUFSA-FN, Weakness (Generalized) and Yigwqov-LSEKV-UT, Urinary Xyzdcipu-TLWFD-SW [facility] Telephone encounter Note * Telephone Encounter - Kimo Mcgrath MD - 09/14/2024 11:31 AM EST He should have active refills [facility]02-10-2025 Miscellaneous Notes* Telephone Encounter - Kimo Mcgrath [...] 14, 2024 8:35 AM documented in [facility] Telephone encounter Note * Telephone Encounter - [...] Jessie Langston September 14, 2024 8:35 AM [facility]02-04-2025 Telephone encounter Note* Telephone Encounter - Therese Paz LPN - 09/08/2024 3:51 PM EST called to report Depakote ws not cancelled at the pharmacy and the pharmacy still showed pt was on this. I called the pharmacy and got it cancelled. Left a detailed message for on 09-08-24 @ 3:52 pm that medication above was cancelled at the pharmacy. Therese Paz LPN [address]04-2025 Miscellaneous Notes* Telephone Encounter - Therese [...] pharmacy. Therese Paz LPN [facility] Telephone encounter Note * Telephone Encounter - [...] Amaya Fry September 04, 2024 3:14 PM [facility]01-31-2025 Miscellaneous Notes* Telephone Encounter - Amaya Blanco [...] 04, 2024 3:12 PM documented in [facility] Telephone encounter Note * Telephone Encounter - Amaya Blanco - 09/04/2024 3:13 PM EST Please disregards this medication refill it grab the wrong medication. [facility]01-31-2025 Telephone encounter Note* Telephone Encounter - Amaya [...] Amaya Fry September 04, 2024 3:12 PM [facility]01-30-2025 NoteHNO ID: [id number] Author: YESSI VALDEZ MD Service: ? Author Type: Physician Type: Progress Notes Filed: 09/09/2024 16:10 Note Text: [facility] Patient Name: Afshin ELLIS Date of : 1955 Referring Provider: Jessie Harmon [address] [facility] [address] INITIAL EPILEPSY CLINIC NOTE 09/03/2024 2:00 PM CHIEF COMPLAINT: New Patient HISTORY OF PRESENT ILLNESS Mr. Zee is a 69 year old male seen in [facility] for initial consultation. [...] - Seizure risk factors: Brain Tumor No LUMBER INSPECTOR Infections No Developmental Delay No Family history of seizures No Febrile Seizure No Complications No Stroke Yes Traumatic Brain Injury No Previous Epilepsy Evaluations EEG 06/15/24, [facility]: Left temporal sharp waves Other caregivers: Primary Care Provider: Jaci Arroyo MD Current Outpatient Medications Medication Sig losartan (COZAAR) 25 mg tablet Ta (more content not included)...[facility]01-30-2025 History of Present illness Narrative* Yessi Valdez MD - 09/03/2024 4:17 PM EST [facility] Patient Name: Afshin ELLIS Date of : 1955 Referring Provider: Jessie Harmon [address] [facility] [address] INITIAL EPILEPSY CLINIC NOTE 09/03/2024 2:00 PM CHIEF COMPLAINT: New Patient HISTORY OF PRESENT ILLNESS Mr. Zee is a 69 year old male seen in [facility] Ep[facility] Outpatient [facility] for initial consultation. [...] - Seizure risk factors: Brain Tumor No LUMBER INSPECTOR Infections No Developmental Delay No Family history of seizures No Febrile Seizure No Complications No Stroke Yes Traumatic Brain Injury No Previous Epilepsy Evaluations EEG 06/15/24, [facility]: Left temporal sharp waves Other caregivers: Primary [...] (FLONASE) 50 mcg/actuation nasal spray Use 1 Premium in each nostril twice daily. Rinse mouth after use. Blood Pressure Monitor kit 1 application twice daily. Measure patient for correct size. Patient needs cuff for left arm readings. COMPOUNDED PRESCRIPTION Articulating AFO foot brace for right leg. Send to [email or web address]. Dx: I63.9 COMPOUNDED PRESCRIPTION EMBER WALKER DX [...] (obstructive sleep apnea) PVD (peripheral vascular disease) ([facility]) Respiratory failure (HCC) hypoxic-ventilator dependent Stroke (cerebrum) [...] Problem Relation Age of Onset Heart Mother OR in her 70s, pacemaker Diabetes Mother Stroke Father other (AAA) Father other (CAD) Brother Hypertension Brother SOCIAL HISTORY: -Lives in [place], [place] -Patient lives alone? No -Vocation: not [...] the date of the service which included: wblr-ni-kftz patient care obtaining and/or reviewing separately obtained history performing a medically appropriate examination counseling and educating the patient/family/caregiver ordering medications, tests, or procedures communicating results to the patient/family/caregiver [facility] STAFF: TEACHING PHYSICIAN NOTE OF [...] Woodruff MD - 09/03/2024 2:09 PM EST [facility] Patient Name: Afshin ELLIS Date of : 1955 Referring Provider: Jessie Harmon [address] [place] [address] INITIAL EPILEPSY CLINIC NOTE 09/03/2024 2:00 PM CHIEF COMPLAINT: New Patient HISTORY OF PRESENT ILLNESS Mr. Zee is a 69 year old male seen in [facility] Ep[facility] Outpatient [facility] for initial consultation. [...] - Seizure risk factors: Brain Tumor Unanswered LUMBER INSPECTOR Infections Unanswered Developmental Delay Unanswered Family history of seizures Unanswered Febrile Seizure Unanswered Complications Unanswered Stroke Yes Traumatic Brain Injury Unanswered Previous Epilepsy Evaluations EEG 06/15/24, [facility]: Left temporal sharp waves Other caregivers: Primary [...] (FLONASE) 50 mcg/actuation nasal spray Use 1 Premium in each nostril twice daily. Rinse mouth after use. Blood Pressure Monitor kit 1 application twice daily. Measure patient for correct size. Patient needs cuff for left arm readings. COMPOUNDED PRESCRIPTION Articulating AFO foot brace for right leg. Send to [email or web address]. Dx: I63.9 COMPOUNDED PRESCRIPTION EMBER WALKER DX [...] Problem Relation Age of Onset Heart Mother OR in her 70s, pacemaker Diabetes Mother Stroke Father other (AAA) Father other (CAD) Brother Hypertension Brother SOCIAL HISTORY: -Lives in [place], [place] -Patient lives alone? No -Vocation: not [...] the date of the service which included: yrck-lv-lttb patient care obtaining and/or reviewing separately obtained history performing a medically appropriate examination counseling and educating the patient/family/caregiver ordering medications, tests, or procedures communicating results to the patient/family/caregiver Joycelyn Woodruff MD cc: Primary Care Physician: Jaci Arroyo MD [id number] [facility] [address] Referring: Jessie Harmon [address] [facility] [address] Patient: Mr. Afshin Zee [address] [facility] [address] [facility] [address] documented in this encounterPrem[facility] Instructions* Patient Instructions* Joycelyn Woodruff MD - 09/03/2024 2:58 PM EST Thank you for choosing the [facility] and allowing me to serve as your physician. It was a pleasure to see you today. Please do not hesitate to call the clinic with any questions/concerns and/or message on Rocketskatest whichever is most convenient for you. Please [...] thereafter. Doctor: Dr. Woodruff/Dr. Sparrow Office number: [phone] Office hours: Saturday through Saturday 8am to 5pm. Call the office to report: Call OR send a Rocketskatest message: Concerns about breakthrough seizures Change in seizure frequency New medication side effect or concern Missed medication dose Worsening or severe depression Urgent medication refill requests - needing new supply within 72 hours Non-urgent or routine medication refill requests Requesting a letter Requesting paperwork completion Report a breakthrough seizure Non-urgent clinical updates Non-urgent clinical questions (e.g. concern regarding lab or test results) Note: [employer] Games[employer] messages are not monitored after 5 PM on weekdays, weekends or holidays. [employer] Games[employer] messages will be addressed within 3 business [...] avoid heights or ladders. Joycelyn Woodruff MD [facility] [address] [place] [address] Office Fax number: [phone] documented in this encounterPremier Health [facility]01-30-2025 NoteHNO ID: [id number] Author: JOYCELYN WOODRUFF MD Service: ? Author Type: Fellow Type: Progress Notes Filed: 09/09/2024 16:10 Note Text: [facility] Patient Name: Afshin ELLIS Date of : 1955 Referring Provider: Jessie Harmon [address] [place] [id number] INITIAL EPILEPSY CLINIC NOTE 09/03/2024 2:00 PM CHIEF COMPLAINT: New Patient HISTORY OF PRESENT ILLNESS Mr. Zee is a 69 year old male seen in [facility] for initial consultation. [...] - Seizure risk factors: Brain Tumor Unanswered LUMBER INSPECTOR Infections Unanswered Developmental Delay Unanswered Family history of seizures Unanswered Febrile Seizure Unanswered Complications Unanswered Stroke Yes Traumatic Brain Injury Unanswered Previous Epilepsy Evaluations EEG 06/15/24, [facility]: Left temporal sharp waves Other caregivers: Primary Care Provider: Jaci Arroyo MD Current Outpatient Medications Medication Sig (more content not included)...[facility]01-28-2025 Telephone encounter Note* Telephone Encounter - Monica Cruz MA - 09/01/2024 3:00 PM EST No forms received other than the forms that were received in Dec and faxed to [employer]. May need to call for a new order form. [facility] ph: [phone]. pt was notify of below: Called [facility], [...] provider. Spoke with , she has called [employer] and notified the company that he only is getting pull ups through them. He is not currently using any other incontinence supplies at this time. Nothing more that office needs to do. Pt is to call [facility] when patient is in need of the pull ups. Monica Cruz MA [facility]01-28-2025 Miscellaneous Notes* Telephone Encounter - Monica Cruz MA - 09/01/2024 3:00 PM EST No forms received other than the forms that were received in Dec and faxed to [employer]. May need to call for a new order form. [facility] ph: [phone]. pt was notify of below: Called [facility], [...] Asking provider to please send information to [employer] * Telephone Encounter - Rachel Buckley MA - 07/28/2024 9:05 AM EST Office received fax from [employer] regarding incontinence supplies. Type of form: Medical Necessity Form received via fax When form is completed, Fax form to [employer] Form has been forwarded to Physician Desk: Dr. Cruz Buckley MA * Telephone Encounter - Monica Cruz MA - 07/27/2024 10:35 AM EST Send order for incontinence supplies to [facility] fax number [phone] * Telephone Encounter - Dimple Agustin LPN - 07/27/2024 10:14 AM EST calls to report pt needs incontinence supplies. reports pt had an order from awhile ago but has started needing them every night. Pt's does not know who the DME company is. Per TE 03/11/23 - it shows a form was received in the office for incontinence supplies from [facility]. There is a fax number: [phone]. There isn't a phone number. reports pt uses large pull-up at bedtime. Heavier flow. is asking if office can send order to [facility]. Could not find scanned form in pt's chart. is requesting a call letting her know if office was able to get order to [facility]. reports pt does not have very many pull-ups left. Dimple Agustin LPN documented in this encounterPremier Health [facility]01-28-2025 Telephone encounter Note * Telephone Encounter - Jaci Arroyo MD - 09/01/2024 2:41 PM EST I do not see any forms on my desk, I assume these have been done? Jaci Arroyo MD [facility]01-22-2025 Telephone encounter Note* Telephone Encounter - Milan Brunson RN - 08/26/2024 4:20 PM EST reports patient is almost out of incontinent supplies, has a week of supplies left. Asking provider to please send information to [facility]. [facility]01-10-2025 Telephone encounter Note* Telephone Encounter - Raiza John RN - 08/14/2024 12:16 PM EST Spouse (Eli) calls to request results of CT scan of head and neck from 06/01/[address]Shivanee Woodruff at [facility]. CT results were ordered by Dr. Nirali Castro and not completed at [facility]. Spouse believes testing was completed at [facility]. Recommended patient contact [facility] if that is where he had testing completed. Eli will contact Dr. Nirali Castro first and then [facility] if needed. Phone number given to Dr. Castro's office. Raiza John RN [facility]01-10-2025 Miscellaneous Notes* Telephone Encounter - Raiza John RN - 08/14/2024 12:16 PM EST Spouse (Eli) calls to request results of CT scan of head and neck from 06/01/[address]Shivanee Woodruff at [facility]. CT results were ordered by Dr. Nirali Castro and not completed at [facility]. Spouse believes testing was completed at [facility]. Recommended patient contact [facility] if that is where he had testing completed. Eli will contact Dr. Nirali Castro first and then [facility] if needed. Phone number given to Dr. Castro's office. Raiza John RN documented in this encounterPremier Health [facility]01-10-2025 Telephone encounter Note * Telephone Encounter - Priya Guillaume LPN - 08/14/2024 10:26 AM EST Patient's notified. [facility]01-10-2025 Miscellaneous Notes* Telephone Encounter - Priya Guillaume [...] to [facility]. Current prescription was transferred from [facility] and only dispensing a 1/2 month supply at a time. [facility] told [facility] that patient needed a new monthly prescription. Patient needs prescription for pickle cutter tomorrow. Spouse (Eli) requests a call back once sent to [facility] at [phone]. Raiza John RN August 14, 2024 9:44 AM documented in this encounterPremier Health [facility]01-10-2025 Telephone encounter Note * Telephone Encounter - Mariano Beckman APRN.CNP - 08/14/2024 10:03 AM EST Please let the patient know that I have sent. The following approved medication requests have been transmitted electronically. Requested Prescriptions Pending Prescriptions Disp Refills baclofen 10 mg tablet 90 tablet 11 Sig: Take 1 tablet by mouth three times a day. Mariano Beckman APRN.CNP [facility]01-10-2025 Telephone encounter Note* Telephone Encounter - Raiza [...] to [facility]. Current prescription was transferred from [facility] and only dispensing a 1/2 month supply at a time. [facility] told [facility] that patient needed a new monthly prescription. Patient needs prescription for pickle cutter tomorrow. Spouse (Eli) requests a call back once sent to [facility] at [phone]. Raiza John RN August 14, 2024 9:44 AM [facility]01-03-2025 Telephone encounter Note* Telephone Encounter - Priya Guillaume LPN - 08/07/2024 10:23 AM EST Please see pharmacy note Pharmacy comment: Please authorize 90 days supply for the patient. [facility]01-03-2025 Miscellaneous Notes* Telephone Encounter - Priya Guillaume LPN - 08/07/2024 10:23 AM EST Please see pharmacy note Pharmacy comment: Please authorize 90 days supply for the patient. documented in this encounterPremier Health [facility]12-26-2024 Telephone encounter Note * Telephone Encounter - [...] Okeefe RN July 30, 2024 5:16 PM [facility]12-26-2024 Miscellaneous Notes* Telephone Encounter - Kassandra Okeefe [...] 30, 2024 5:16 PM documented in this encounterPremier Health [facility]12-24-2024 Telephone encounter Note * Telephone Encounter - [...] 25 at 1:30pm virtual. No further questions. [facility]12-24-2024 Miscellaneous Notes* Telephone Encounter - Jayde Wright [...] virtual. No further questions. documented in this encounterPremier Health [facility]12-24-2024 Telephone encounter Note * Telephone Encounter - Rachel Buckley MA - 07/28/2024 9:05 AM EST Office received fax from [employer] regarding incontinence supplies. Type of form: Medical Necessity Form received via fax When form is completed, Fax form to [employer] Form has been forwarded to Physician Desk: Dr. Cruz Buckley MA [facility]12-23-2024 Telephone encounter Note* Telephone Encounter - Monica Cruz MA - 07/27/2024 10:35 AM EST Send order for incontinence supplies to [facility] fax number [phone] [facility]12-23-2024 Telephone encounter Note* Telephone Encounter - Dimple Agustin LPN - 07/27/2024 10:14 AM EST calls to report pt needs incontinence supplies. reports pt had an order from awhile ago but has started needing them every night. Pt's does not know who the DME company is. Per TE 03/11/23 - it shows a form was received in the office for incontinence supplies from [facility]. There is a fax number: [phone]. There isn't a phone number. reports pt uses large pull-up at bedtime. Heavier flow. is asking if office can send order to [facility]. Could not find scanned form in pt's chart. is requesting a call letting her know if office was able to get order [facility]. reports pt does not have very many pull-ups left. Dimple Agustin LPN [facility]12-20-2024 Telephone encounter Note* Telephone Encounter - Deanne [...] Please review and advise. Deanne Neville LPN [facility]12-20-2024 Miscellaneous Notes* Telephone Encounter - Deanne Neville [...] advise. Deanne Neville LPN documented in this encounterPremier Health [facility]12-19-2024 NoteHNO ID: [id number] Author: NAYELI BOYLE APRN.LAUNDRY OPERATOR WASH ROOM Service: ? 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 No seizures were recorded EEG ([facility], 11/10/2016): This is an abnormal electroencephalogram recording [...] 11/10/2016. No acute findings on today's exam. Suzo-mz-yaylfv MRA demonstrates complete occlusion of the left [...] for VEEG monitoring, diagnostic evaluation Location: [facility] [place] or [place] - Visit with epileptologist prior to admission - OK to start with a consult visit if patient prefers. - Additional testing to be considered by epilepsy clinicians Signed: Nayeli Boyle APRN.LAUNDRY OPERATOR WASH ROOM July 23, [address] Groves for review and recommendations. MD Recommendations (as discussed with Dr. Groves): - Please proceed with the above plan. Please route this encounter to the EMU Scheduling Pool (P EMU) or PMU Scheduling Pool (P PMU) through LOS AND Follow up PHASE 1.0 AND 1.5 ORDER SYNOPSIS Patient: Afshin Zee ([id number]) Best contact number: [phone] Insurance: Payor: [facility] MEDICARE / Plan: [facility] DUAL COMPLETE HMO POS SNP / Product Type: Medicare / Scheduling Team: Please call for adult patients: EMU coordinator ([phone]) [place] Coordinator ([phone]) PMU coordinator([phone]) [employer] ([phone]) Please call for pediatric patients: PMU coordinator ([phone]) [place] Coordinator ([phone]) EMU coordinator ([phone]) [employer] ([phone]) 07/23/2024 -- Admission Type EMU Adult Number (more content not included)...[facility]12-19-2024 History of Present illness Narrative* Nayeli Boyle, NEW GRAD RN.LAUNDRY OPERATOR WASH ROOM - 07/23/2024 2:25 PM EST [facility] Review of Records Patient: Afshin Zee Address: [address] [place], [place] [id number] Impression: Review of records for Afshin Zee, a 68 year old male, being referred by Michelle Webb PA-C [[facility]] to Any Epileptologist for further [...] 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 No seizures were recorded EEG ([facility], 11/10/2016): This is an abnormal electroencephalogram recording [...] 11/10/2016. No acute findings on today's exam. Fxrs-op-ykmcbh MRA demonstrates complete occlusion of the left [...] EMU for VEEG monitoring, diagnostic evaluation Location: [facility] or [place] - Visit with epileptologist prior to admission - OK to start with a consult visit if patient prefers. - Additional testing to be considered by epilepsy clinicians Signed: Nayeli Boyle APRN.LAUNDRY OPERATOR WASH ROOM July 23, [address] Groves for review and recommendations. MD Recommendations (as discussed with Dr. Groves): - Please proceed with the above plan. Please route this encounter to the EMU Scheduling Pool (P EMU) or PMU Scheduling Pool (P PMU) through LOS & Follow up PHASE 1.0 AND 1.5 ORDER SYNOPSIS Patient: Afshin Zee ([id number]) Best contact number: [phone] Insurance: Payor: [facility] MEDICARE / Plan: [facility] DUAL COMPLETE HMO POS SNP / Product Type: Medicare / Scheduling Team: Please call for adult patients: EMU coordinator ([phone]) [place] Coordinator ([phone]) PMUcoordinator([phone]) [employer] ([phone]) Please call for pediatric patients: PMU coordinator ([phone]) [place] Coordinator ([phone])EMU coordinator ([phone]) [employer] ([phone]) 07/23/2024 -- Admission Type EMU Adult Number of Days requested 4 Location [facility] Admit Priority Routine 07/23/2024 PURPOSE Patient Being [...] VNS off/on office visits. documented in this encounterPrem[facility] Health [facility]12-19-2024 Telephone encounter Note * Telephone Encounter - Kassandra Okeefe RN - 07/23/2024 1:12 PM EST Left detailed msg on pt's 's personal voicemail. Instructed that each insurance plan is different and that Multivitamin was sent in as prescription but unsure if their insurance will cover it. [facility]12-19-2024 Miscellaneous Notes* Telephone Encounter - Kassandra Okeefe [...] - 07/22/2024 4:49 PM EST Elida from [employer] with Patient's calls and states that when prescription was sent to [facility] patient did not pay out of [...] advise, Jayde Laughlin RN documented in this encounterPremier Health [facility]12-19-2024 Telephone encounter Note * Telephone Encounter - [...] once daily. Authorizing Provider: JESSIE HARMON APRN.CNP [facility]12-18-2024 Telephone encounter Note* Telephone Encounter - Jayde Laughlin RN - 07/22/2024 4:49 PM EST Elida from [employer] with Patient's calls and states that when prescription was sent to [facility] patient did not pay out [...] Please review and advise, Jayde Laughlin RN [facility]12-18-2024 Instructions* Patient Instructions* Michelle Webb PA-C - 07/22/2024 12:07 PM EST Will reach out to Dr. Aj about what medication to try. Follow up in 2-3 months documented in this encounterPremier Health [facility]12-18-2024 NoteHNO ID: [id number] Author: MICHELLE WEBB PA-C Service: ? Author Type: Physician Basketball Assembler Type: Progress Notes Filed: 07/22/2024 12:43 Note [...] over results with patient, patient's , patient's dye mixer and patient's son on the phone. New [...] will schedule this today. Does have a dye mixer at home and does a lot of [...] reviewed and i (more content not included)... [facility]12-18-2024 History of Present illness Narrative* Michelle Webb [...] over results with patient, patient's , patient's dye mixer and patient's son on the phone.New MRI [...] will schedule this today. Does have a dye mixer at home and does alot of physical [...] (FLONASE) 50 mcg/actuation nasal spray Use 1 Premium in each nostril twice daily. Rinse mouth after use. Blood Pressure Monitor kit 1 application twice daily. Measure patient for correct size. Patient needs cuff for left arm readings. COMPOUNDED PRESCRIPTION Articulating AFO foot brace for right leg. Send to [email or web address]. Dx: I63.9 COMPOUNDED PRESCRIPTION EMBER WALKER DX [...] Carotid stenosis COPD (chronic obstructive pulmonary disease) ([facility]) Dysphasia Emphysema lung ([facility]) History of blood transfusion 03/2023 Hypertension Hypoxia 03/2023 DARON (obstructive sleep apnea) PVD (peripheral vascular disease) ([facility]) Respiratory failure (HCC) hypoxic-ventilator dependent Stroke (cerebrum) ([facility]) Tobacco abuse FAMILY HISTORY Problem Relation Age of Onset Heart Mother OR in her 70s, pacemaker Diabetes Mother Stroke [...] which included preparing to see the patient, whiu-gi-[id number] patient care, completing clinical documentation, obtaining and/or reviewing separately obtained history, performing a medically appropriate examination, and counseling and educating the patient/family/caregiver. This document has been created with the use of voice recognition technology. It may contain inaccuracies: (e.g. misspellings, inaccurate syntax or word sense) that have escaped review. documented in this encounterPremier Health [facility]12-09-2024 Instructions* Patient Instructions* Jessie Harmon APRN.CNP - [...] pm, Saturday 7:30 am-12:00pm documented in this encounterPremier Health [facility]12-09-2024 History of Present illness Narrative* Jessie Harmon [...] appointment at the end of the month. [facility] discharge, neurology at [facility] recommended weaning off [...] FOLLOW UP: Reason for visit: Which facility: [facility] Date of visit: 06/26/2024-06/28/2024 Diagnosis: Confusion, Adverse [...] multi vessel COLONOSCOPY SCREENING 04/10/2023 EGD [facility] SPEC VARICIES INJ 04/11/2023 EGD W/[facility] SPEC VARICIES INJ 04/10/2023 HEART CATHETERIZATION 09/17/2016 [...] (FLONASE) 50 mcg/actuation nasal spray Use 1 Premium in each nostril twice daily. Rinse mouth after use. Blood Pressure Monitor kit 1 application twice daily. Measure patient for correct size. Patient needs cuff for left arm readings. COMPOUNDED PRESCRIPTION Articulating AFO foot brace for right leg. Send to [email or web address]. Dx: I63.9 COMPOUNDED PRESCRIPTION EMBER WALKER DX I63.9 weight 162 # No current facility-administered medications for this visit. FAMILY HISTORY Problem Relation Age of Onset Heart Mother OR in her 70s, pacemaker Diabetes Mother Stroke [...] APRN.CNP This note was partially generated using Eventful voice recognition system. Note was reviewed for accuracy. There may be minor misspellings or grammar miscues with [employer]ful voice recognition. documented in this encounterPremier Health [facility]12-09-2024 NoteHNO ID: [id number] Author: JESSIE HARMON APRN.CNP Service: ? Author [...] appointment at the end of the month. [facility] discharge, neurology at [facility] recommended weaning off [...] FOLLOW UP: Reason for visit: Which facility: [facility] Date of visit: 06/26/2024-06/28/2024 Diagnosis: Confusion, Adverse [...] multi vessel COLONOSCOPY SCREENING 04/10/2023 EGD [facility] SPEC VARICIES INJ 04/11/2023 EGD W/[facility] SPEC VARICIES INJ 04/10/2023 HEART CATHETERIZATION 09/17/2016 [...] tablet twice daily amirah (more content not included)...[facility]12-03-2024 Miscellaneous Notes* Telephone Encounter - Mayela Mcgrath LPN - 07/07/2024 10:56 AM EST Patient is scheduled 07/07/24 with MQ * Telephone Encounter - Therese Paz LPN - 07/07/2024 9:52 AM EST calling because she has not heard back. Pt was in [facility] ER/Hospital last week. Pt is off his seizure medicines and not sure what he is to be taking. They are trying to get apt with Dr. Aj or Otis. Please call to schedule apt. Very concerned he is off all seizure medication. Therese Paz LPN documented in this encounterPremier Health [facility]12-03-2024 Telephone encounter Note * Telephone Encounter - Mayela Mcgrath LPN - 07/07/2024 10:56 AM EST Patient is scheduled 07/07/24 with MQ [facility]12-03-2024 Telephone encounter Note* Telephone Encounter - Therese Paz LPN - 07/07/2024 9:52 AM EST calling because she has not heard back. Pt was in [facility] ER/Hospital last week. Pt is off his seizure medicines and not sure what he is to be taking. They are trying to get apt with Dr. Aj or Otis. Please call to schedule apt. Very concerned he is off all seizure medication. Therese Paz LPN [facility]11-27-2024 Instructions* Patient Instructions* Jessie Harmon APRN.CNP - 07/01/2024 11:01 AM EST Continue to take current medications Continue to hold Keppra, office will reach out to Neurology Continue to monitor symptoms at home Go to ER with any active seizures. Finish antibiotics Follow up after discussion with Neurology. documented in this encounterPremier Health [facility]11-27-2024 History of Present illness Narrative* Jessie Harmon APRN.CNP - 07/01/2024 10:20 AM EST This is a 68 year old male who presents today with: Patient presents with: ER F/U: [facility] ER- Saturday walking pneumonia, then ER Saturday- seizure (), also needs letter stating that hecan not make decisions for himself HISTORY OF PRESENT ILLNESS: Afshin Zee is a 68 year old male. Patient presents with: ER F/U: [facility] ER- Saturday walking pneumonia, then ER Saturday- seizure (), also needs letter stating that javier not make decisions for himself HOSPITAL/ER FOLLOW UP: Reason for visit: Which facility: [facility] Date of visit: 06/26/2024-06/28/2024 Diagnosis: Confusion, Adverse [...] multi vessel COLONOSCOPY SCREENING 04/10/2023 EGD W/[facility] SPEC VARICIES INJ 04/11/2023 EGD W/[facility] SPEC VARICIES INJ 04/10/2023 HEART CATHETERIZATION 09/17/2016 [...] (FLONASE) 50 mcg/actuation nasal spray Use 1 Premium in each nostril twice daily. Rinse mouth after use. Blood Pressure Monitor kit 1 application twice daily. Measure patient for correct size. Patient needs cuff for left arm readings. COMPOUNDED PRESCRIPTION Articulating AFO foot brace for right leg. Send to [email or web address]. Dx: I63.9 COMPOUNDED PRESCRIPTION EMBER WALKER DX I63.9 weight 162 # No current facility-administered medications for this visit. FAMILY HISTORY Problem Relation Age of Onset Heart Mother OR in her 70s, pacemaker Diabetes Mother Stroke [...] discussed and patient voices understanding. Jessie Harmon APRN.LAUNDRY OPERATOR WASH ROOM This note was partially generated using Dragon voice recognition system. Note was reviewed for accuracy. There may be minor misspellings or grammar miscues with Eventful voice recognition. documented in this encounterPremier Health [facility]11-27-2024 NoteHNO ID: [id number] Author: JESSIE HARMON APRN.CNP Service: ? Author Type: Nurse Practitioner Type: Progress Notes Filed: 07/01/2024 16:13 Note Text: This is a 68 year old male who presents today with: Patient presents with: ER F/U: [facility] ER- Saturday walking pneumonia, then ER Saturday- seizure (), also needs letter stating that he can not make decisions for himself HISTORY OF PRESENT ILLNESS: Afshin Zee is a 68 year old male. Patient presents with: ER F/U: [facility] ER- Saturday walking pneumonia, then ER Saturday- seizure (), also needs letter stating that he can not make decisions for himself HOSPITAL/ER FOLLOW UP: Reason for visit: Which facility: [facility] Date of visit: 06/26/2024-06/28/2024 Diagnosis: Confusion, Adverse [...] multi vessel COLONOSCOPY SCREENING 04/10/2023 EGD W/O [facility] SPEC VARICIES INJ 04/11/2023 EGD W/O BRS [...] IS LESS THAN 60 (more content not included)...[facility]11-25-2024 Telephone encounter Note* Telephone Encounter - Amaya Blanco - 06/29/2024 1:14 PM EST Spouse called looking for below appt with Dr Aj. Please advise the spouse. [facility]11-25-2024 Miscellaneous Notes* Telephone Encounter - Amaya Blanco - 06/29/2024 1:14 PM EST Spouse called looking for below appt with Dr Aj. Please advise the spouse. * Telephone Encounter - Dania Cornelius MD - 06/29/2024 12:22 PM EST noted * Telephone Encounter - Jayde Laughlin RN - 06/29/2024 11:39 AM EST Cathy Josueley from [facility] calls and reports that patient was in [facility] ER on 06/26 and diagnosed with Pneumonia and was put on antibiotics. On 06/27 patient was taken to [facility] ER again for breakthrough seizures. Patient was admitted and then discharged on 06/28/2024. Jayde Laughlin RN documented in this encounterPremier Health [facility]11-25-2024 Telephone encounter Note * Telephone Encounter - Dania Cornelius MD - 06/29/2024 12:22 PM EST noted [facility] Work Phone: 1(648) 867-497711-25-2024 Telephone encounter Note* Telephone Encounter - Jayde Laughlin RN - 06/29/2024 11:39 AM EST Cathyvijay Siu from [facility] calls and reports that patient was in [facility] ER on 06/26 and diagnosed with Pneumonia and was put on antibiotics. On 06/27 patient was taken to [facility] ER again for breakthrough seizures. Patient was admitted and then discharged on 06/28/2024. Jayde Laughlin RN [facility]11-24-2024 [facility] Medical Records Department [address] [place] [address] Discharge Summary 06/28/24 1511 MR#: [id number] Acct: [id number] Name: AFSHIN ZEE Rep #: [id number] : 1955 68 From: Dov Marin DO PCP: Dr. Jaci Arroyo MD Status:ADM JUMANA Location: [place] [address] Providers Date of Admission: 06/28/24 Primary Care Physician: Dr. Jaci Arroyo MD Consultations 06/28/24 01:07 neuro [Consult: Tele-Neurology] Routine Consulting Provider: [facility] Reason for Consult: AMS after Keppra. EMERGENT Consult: No MD Notified: Yes Date Notified: 06/28/24 Time Notified: 01:07 Method of Notification: Answering Service Method of Consult:: Telemedicine Comments:: Dr Chadwick admissions clerk 06/28 Nursing Unit Staff Notify [facility] of [...] Polypharmacy: Status: Acute Code(s): Z79.899 - Other long term care phlebotomist (current) drug therapy (5) Pneumonia: Status: Acute [...] * Neuro consult * [facility]Dr. Aj (unable to pull up info through [employer] as it is non-function at this time). [...] (1/2 x 10 mg) PO TID 02/05/17 multivitamin,zl-qfvs-numxqcbz (Complete Multivitamin tablet) 1 tab PO DAILY [...] PO DAILY 08/02/23 met (more content not included)...[facility]11-23-2024 Miscellaneous Notes* Telephone Encounter - Medina [...] time of call) Protocols used: Medication Question [id number] documented in this encounterPremier Health [facility]11-23-2024 Telephone encounter Note * Telephone Encounter - [...] time of call) Protocols used: Medication Question [id number] [facility]11-21-2024 Telephone encounter Note* Telephone Encounter - Rody Main RN - 06/25/2024 4:50 PM EST Eli called in with concerns about his blood thinner. Given instruction to stop Plavix for colonoscopy but states patient has been off of it for a long time. Ordered in Error in 12/2023. Patient taking Eliquis. Med Rec updated. Rody Main RN [facility]11-21-2024 Miscellaneous Notes* Telephone Encounter - Rody Main RN - 06/25/2024 4:50 PM EST Eli called in with concerns about his blood thinner. Given instruction to stop Plavix for colonoscopy but states patient has been off of it for a long time. Ordered in Error in 12/2023. Patient taking Eliquis. Med Rec updated. Rody Main RN documented in this encounterPremier Health Miami [facility]11-21-2024 Telephone encounter Note * Telephone Encounter - Monica Cruz MA - 06/25/2024 4:19 PM EST Pt notified. She does not believe pt is taking Plavix any longer as she couldn't find it in his meds. Doesn't look like our office is prescribing that so it may have been cancelled by the prescribing provider. She states he had an EEG done at [facility] which was ordered by Neurologist Dr. Aj. She states it cameback showing start of seizures. Started him on Keppra 500 mg 1 pill BID. She is not sure if she wants to start him on it after reading side effects. Has appt to follow up in Sep with Neuro. Monica Cruz MA [facility]11-21-2024 Miscellaneous Notes* Telephone Encounter - Monica Cruz MA - 06/25/2024 4:19 PM EST Pt notified. She does not believe pt is taking Plavix any longer as she couldn't find it in his meds. Doesn't look like our office is prescribing that so it may have been cancelled by the prescribing provider. She states he had an EEG done at [facility] which was ordered by Neurologist Dr. Aj. [...] procedure rescheduled. Please advise documented in this encounterPremier Health [facility]11-21-2024 Telephone encounter Note * Telephone Encounter - Monica Cruz MA - 06/25/2024 4:16 PM EST Pt notified. Monica Cruz MA [facility]11-21-2024 Miscellaneous Notes* Telephone Encounter - Monica Cruz [...] with reply. Thank you. documented in this encounterPremier Health [facility]11-21-2024 Telephone encounter Note * Telephone Encounter - Jaci Arroyo MD - 06/25/2024 3:06 PM EST He should hold the Plavix after today, and hold the Eliquis the day before the colonoscopy. The Losartan and amiodarone he may take normally, no need to hold. Jaci Arroyo MD [facility]11-21-2024 Telephone encounter Note* Telephone Encounter - Jaci Arroyo MD - 06/25/2024 3:05 PM EST OK for Lotrisone cream as ordered; I do not think he would also need an antibiotic Jaci Arroyo MD [facility]11-21-2024 Telephone encounter Note* Telephone Encounter - Amaya [...] antibiotic? Please call with reply. Thank you. [facility]11-20-2024 Note* Addendum Note - Michelle Wbeb PA-C - 06/24/2024 2:36 PM ESTAddended by: MICHELLE WEBB on: 06/24/2024 02:36 PM Modules accepted: Orders [facility]11-20-2024 Miscellaneous Notes* Addendum Note - Michelle Webb [...] MA View External Procedures - EEG [ID [id number]] * Telephone Encounter - Jayde Laughlin RN - 06/23/2024 8:15 AM EST Patient's Eli calls and is asking about EEG results that were done at [facility] on 06/15/2024. Please review and advise, Jayde Laughlin RN documented in this encounterPremier Health [facility]11-20-2024 Telephone encounter Note * Telephone Encounter - [...] Keppra 500 mg twice daily to pharmacy. [facility]11-20-2024 Telephone encounter Note* Telephone Encounter - Pati Hare LPN - 06/24/2024 1:29 PM EST Patients would like further explanation as to why the seizure medication is needed. States that he has not had any seizures that she is aware. [facility]11-20-2024 Telephone encounter Note* Telephone Encounter - Mayela Mcgrath LPN - 06/24/2024 1:04 PM EST Called patient, no answer. LVM. Please review and advise patient of message below. Mayela Mcgrath LPN June 24, 2024 1:05 PM [facility]11-20-2024 Telephone encounter Note* Telephone Encounter - Dania Aj Jr., MD - 06/24/2024 12:37 PM EST Per the EEG report, appears sharps are noted in the L hemisphere consistent with underlying insult.I would recommend patient be on seizure medication if none started since last saw in 03/2024. If they agree, will likely start on Keppra 500mg BID. Dania Aj MD [facility] Work Phone: [phone]) 234-939311-20-2024 Telephone encounter Note* Telephone Encounter - Loida [...] needs to have procedure rescheduled. Please advise [facility]11-19-2024 Telephone encounter Note* Telephone Encounter - Christina Ozuna MA - 06/23/2024 4:45 PM EST Please review results. Christina Ozuna MA View External Procedures - EEG [ID [id number]] [facility]11-19-2024 Telephone encounter Note* Telephone Encounter - Jayde Laughlin RN - 06/23/2024 8:15 AM EST Patient's Eli calls and is asking about EEG results that were done at [facility] on 06/15/2024. Please review and advise, Jayde Laughlin RN [facility]11-15-2024 Telephone encounter Note* Telephone Encounter - Lora James RN - 06/19/2024 8:30 AM EST Images from the original note were not included. Jorge Cardoso MD [facility] Pool I don't stop anticoagulants. I don't see any medications that I would stop - Rich My Chart message sent to patient's , with Go Lytely instructions attached. Lora James RN [facility]11-15-2024 Miscellaneous Notes* Telephone Encounter - Lora James RN - 06/19/2024 8:30 AM EST Images from the original note were not included. Jorge Cardoso MD [facility] Pool I don't stop anticoagulants. [...] help for procedure. Aware sending to provider admissions clerk since pcp is out of office. Verified with spouse patient is NOT on plavix but is doing eliquis and all other medication is correct Kimo Adamson MA documented in this encounterPremier Health [facility]11-14-2024 Telephone encounter Note * Telephone Encounter - Amada Kauffman MA - 06/18/2024 4:45 PM EST Patients informed to contact provider performing colonoscopy. Amada Kauffman MA [facility]11-14-2024 Telephone encounter Note* Telephone Encounter - Stephen Warner MD - 06/18/2024 4:33 PM EST Advise to contact the provider doing the colonoscopy to see if they need him to hold any of his medications and when to start holding them? [facility] Work Phone: [phone] Telephone encounter Note* Telephone Encounter - Kimo Adamson MA - 06/18/2024 2:43 PM EST Patient is having colonoscopy 06/29 but not sure which medication need help for procedure. Aware sending to provider admissions clerk since pcp is out of office. Verified with spouse patient is NOT on plavix but is doing eliquis and all other medication is correct Kimo Adamson MA [facility]11-14-2024 Telephone encounter Note* Telephone Encounter - Kimo Adamson MA - 06/18/2024 2:39 PM EST Images from the original note were not included. PA approved till 08/04/25 and patient was notified Kimo Adamson MA [facility]11-14-2024 Miscellaneous Notes* Telephone Encounter - Kimo Adamson MA - 06/18/2024 2:39 PM EST Images from the original note were not included. PA approved till 08/04/25 and patient was notified Kimo Adamson MA * Telephone Encounter - Kimo Adamson MA - 06/18/2024 11:01 AM EST Prior Authorization has been completed online at [employer] for Amiodarone, will await response. LORD- [id number] Please keep encounter open until final decision has been received and documented from insurance [employer]. Kimo Adamson MA documented in this encounterPremier Health [facility]11-14-2024 Telephone encounter Note * Telephone Encounter - Kimo Adamson MA - 06/18/2024 11:01 AM EST Prior Authorization has been completed online at [employer] for Amiodarone, will await response. LORD- [id number] Please keep encounter open until final decision has been received and documented from insurance [employer]. Kimo Adamson MA [facility]11-06-2024 Instructions* Patient Instructions* Jessie Gardner APRN.CNP - 06/10/2024 2:45 PM EST We will follow up with you in a few weeks in person so I can get a good look at the arm to get the prior auth for botox. A new hand brace was ordered. You can get it from [employer] [place] [address] documented in this encounterPremier Health [facility]11-01-2024 NoteHNO ID: [id number] Author: JESSIE GARDNER APRN.CNP Service: ? Author Type: Nurse Practitioner Type: Progress Notes Filed: 06/11/2024 09:26 Note Text: I have communicated my name and active licensure. The patient's identity and physical location were verified at the time of this visit. Either the patient or their legal loss control representative has been informed of the risks and [...] hemiparesis, expressive aphasia. [facility] right [facility]. Currently follows with PT, and [employer]ELOPER. Was in OT but has been released. [...] some yes and no questions. Working with [employer] DEVELOPER for expressive aphasia. Sleep: Denies any problems [...] (FLONASE) 50 mcg/actuation nasal spray Use 1 Premium in each nostril twice daily. Rinse mouth after use. Blood Pressu (more content not included)...[facility]11-01-2024 History of Present illness Narrative* Jessie Gardner, NEW GRAD RN.LAUNDRY OPERATOR WASH ROOM - 06/05/2024 1:09 PM EDT I have communicated my name and active licensure. The patient's identity and physical location wereverified at the time of this visit. Either the patient or their legal loss control representative has been informed of the risks and [...] right arm. Currently follows with PT, and [employer] BI DEVELOPER. Was in OT but has been released. [...] some yes and no questions. Working with [employer] BI DEVELOPER for expressive aphasia. Sleep: Denies any problems [...] (FLONASE) 50 mcg/actuation nasal spray Use 1 Premium in each nostril twice daily. Rinse mouth after use. Blood Pressure Monitor kit 1 application twice daily. Measure patient for correct size. Patient needs cuff for left arm readings. COMPOUNDED PRESCRIPTION Articulating AFO foot brace for right leg. Send to [email or web address]. Dx: I63.9 COMPOUNDED PRESCRIPTION EMBER WALKER DX I63.9 weight 162 # OARRS reviewed to confirm/clarify any controlled medications Allergies Reviewed PAST MEDICAL HISTORY: ACTIVE PROBLEM LIST Hyperlipidemia Erectile Dysfunction Cervicalgia Chronic Right Shoulder Pain Occlusion of Left Carotid Artery Stroke (Cerebrum) (Hcc) Aneurysm (Hcc) Essential Hypertension Anxiety Chronic Insomnia Right Hemiplegia (Hcc) Bradycardia Dysphasia Coronary Artery Disease Involving [place] Coronary Artery of [place] Heart Without Angina Pectoris Paroxysmal Atrial Fibrillation [...] multi vessel COLONOSCOPY SCREENING 04/10/2023 EGD W/O [facility] SPEC VARICIES INJ 04/11/2023 EGD W/O [facility] [...] (Hcc) Bradycardia Dysphasia Coronary Artery Disease Involving [place] Coronary Artery of [place] Heart Without Angina Pectoris Paroxysmal Atrial Fibrillation (Hcc) Aphasia As Late Effect of Cerebrovascular Accident Stage 3a Chronic Kidney Disease (Hcc) Centrilobular Emphysema (Hcc) Former Cigarette Smoker Stage 3 Chronic Kidney Disease, Unspecified Whether Stage 3a Or 3b Ckd (Hcc) Pre-Operative Cardiovascular Examination [facility] on 06/05/24 CONSULT TO PHYSICAL MEDICINE AND [...] - SPLINT. Information provided on AVS for blue line hanger to get fitted with new splint [...] which included preparing to see the patient, [id number]-ajhw patient care, completing clinical documentation, performing a medically appropriate examination, counseling and educating the patient/family/caregiver, ordering medications, tests, or p rocedures and communicating results to the patient/family/caregiver. Jessie Gardner APRN.LAUNDRY OPERATOR WASH ROOM [facility] documented in this encounterPremier Health [facility]10-29-2024 Telephone encounter Note * Telephone Encounter - Eliana Valdivia - 06/02/2024 11:32 AM EDT CV PHONE Name of caller : Eli Relationship to patient : Spouse If not self Will need patient permission to release results or disclose health information with called documented in . Patient identified by Name and Date of . ( Afshin Zee, 1955). Yes Number to return call [phone] Reason for Call: Patient spouse is calling regarding schedule [facility] HEAD [facility] NECK. I advised imaging is already order in the chart. I transferred her for scheduling. Please call [phone] to provide any other follow up instructions. Thank you. Thank you calling [facility]. You will receive a return call within 48hours ( or 2 business days if close to the weekend). If you feel that this is an urgent issue and needs immediate attention, it is recommended that you contact your primary care provider office or proceed to your nearest Urgent Care Center of Emergency Room ED for evaluation/treatment. [facility]10-29-2024 Miscellaneous Notes* Telephone Encounter - Eliana Valdivia - 06/02/2024 11:32 AM EDT CV PHONE Name of caller : Eli Relationship to patient : Spouse If not self Will need patient permission to release results or disclose health information with called documented in i. Patient identified by Name and Date of . ( Afshin Zee, 1955). Yes Number to return call [phone] Reason for Call: Patient spouse is calling regarding schedule [facility] HEAD [facility]ECK. I advised imaging is already order in the chart. I transferred her for scheduling. Please call [phone] to provide any other follow up instructions. Thank you. Thank you calling [facility]. You will receive a return call within 48hours ( or 2 business days if close to the weekend). If you feel that this is an urgent issue and needs immediate attention, it is recommended that you contact your primary care provider office or proceed to your nearest Urgent Care Center of Emergency Room ED for evaluation/treatment. documented in this encounterPremier Health [facility]10-28-2024 NoteHNO ID: [id number] Author: GLORIA SAWYER MD Service: ? Author Type: Physician Type: Progress Notes Filed: 06/01/2024 13:35 Note Text: [facility] Virtual Visit Consultation is requested by: Dania Del Valle0 [facility] [address] PCP: Jaci Arroyo [address] [place] [address] I have communicated my name and active licensure. The patient's identity and physical location were verified at the time of this visit. Either the patient or their legal loss control representative has been informed of the risks and [...] (FLONASE) 50 mcg/actuation nasal spray Use 1 Premium in each nostril twice daily. Rinse mouth after use. Blood Pressure Monitor kit 1 application twice daily. Measure patient for correct size. Patient needs cuff for left arm readings. COMPOUNDED PRESCRIPTION Articulating AFO foot brace for right leg. Send to [email or web address]. Dx: I63.9 COMPOUNDED PRESCRIPTION EMBER WALKER DX [...] A1C (%) Date Value (more content not included)...[facility]10-28-2024 History of Present illness Narrative* Gloria Sawyer MD - 06/01/2024 9:52 AM EDT [facility] Virtual Visit Consultation is requested by: Dania Aj [address] [facility] [address] PCP: Jaci Arroyo [address] [place] [address] I have communicated my name and active licensure. The patient's identity and physical location wereverified at the time of this visit. Either the patient or their legal loss control representative has been informed of the risks and [...] (FLONASE) 50 mcg/actuation nasal spray Use 1 Premium in each nostril twice daily. Rinse mouth after use. Blood Pressure Monitor kit 1 application twice daily. Measure patient for correct size. Patient needs cuff for left arm readings. COMPOUNDED PRESCRIPTION Articulating AFO foot brace for right leg. Send to [email or web address]. Dx: I63.9 COMPOUNDED PRESCRIPTION EMBER WALKER DX [...] June 01, 2024 CC Dania Aj [address] [facility] [address] Jaci Arroyo [address] [place] [address] documented in this encounterPremier Health [facility]10-24-2024 Telephone encounter Note * Telephone Encounter - Monica Cruz MA - 05/28/2024 4:30 PM EDT Pt notified and repeated back to JIMI. Pt was also advised to hold Aspirin as well for 5 days before. Advised he can restart meds after colonoscopy, same day. Monica Cruz MA [facility]10-24-2024 Miscellaneous Notes* Telephone Encounter - Monica Cruz MA - 05/28/2024 4:30 PM EDT Pt notified and repeated back to JIMI. Pt was also advised to hold Aspirin as well for 5 days before. Advised he can restart meds after colonoscopy, same day. Monica Crzu MA * Telephone Encounter - Jaci Arroyo [...] and let her know. documented in this encounterPremier Health [facility]10-24-2024 Telephone encounter Note * Telephone Encounter - Jaci Arroyo MD - 05/28/2024 4:21 PM EDT He should hold the Plavix for 5 days before the colonoscopy, and hold the Eliquis for 2 days beforethe colonoscopy Jaci Arroyo MD [facility]10-24-2024 Telephone encounter Note* Telephone Encounter - Monica Cruz MA - 05/28/2024 3:46 PM EDT Tete notified and voiced understanding. Monica Cruz MA [facility]10-24-2024 Miscellaneous Notes* Telephone Encounter - Monica Cruz [...] advise, Jayde Laughlin RN documented in this encounterPremier Health [facility]10-24-2024 Telephone encounter Note * Telephone Encounter - Jaci Arroyo MD - 05/28/2024 3:43 PM EDT OK for 1 pill tid Jaci Arroyo MD [facility]10-24-2024 Telephone encounter Note* Telephone Encounter - Jaci Arroyo MD - 05/28/2024 2:52 PM EDT OK to refill as ordered Jaci Arroyo MD [facility]10-24-2024 Miscellaneous Notes* Telephone Encounter - Jaci Arroyo [...] 28, 2024 2:23 PM documented in this encounterPremier Health [facility]10-24-2024 Telephone encounter Note * Telephone Encounter - Lacy Ding LPN - 05/28/2024 2:26 PM EDT Pt's calls states py is due to have colonoscopy on 06/29/24 asking if there are any med's you wish for him to hold for that? Please advise and let her know. [facility]10-24-2024 Telephone encounter Note* Telephone Encounter - Lacy [...] Ding LPN May 28, 2024 2:23 PM [facility]10-24-2024 Telephone encounter Note* Telephone Encounter - Jayde [...] Please review and advise, Jayde Laughlin RN [facility]10-18-2024 Telephone encounter Note* Telephone Encounter - Deanne Neville LPN - 05/22/2024 1:06 PM EDT Spoke with [facility] precert. They are awaiting [facility]. No needs from physician at this time. Deanne Neville LPN [facility]10-18-2024 Miscellaneous Notes* Telephone Encounter - Deanne Neville LPN - 05/22/2024 1:06 PM EDT Spoke with [facility] precert. They [facility]. No needs from physician at [...] will need cancelled again. Callback number is [phone]. .Eliana Malin LPN documented in this encounterPrem[facility]10-18-2024 Telephone encounter Note * Telephone Encounter - [...] will need cancelled again. Callback number is [phone]. .Eliana Malin LPN [facility]10-17-2024 Telephone encounter Note* Telephone Encounter - Sol Beasley - 05/21/2024 4:32 PM EDT Called pt and left VM with appointment details Sol Beasley [facility]10-17-2024 Miscellaneous Notes* Telephone Encounter - oSl Beasley - 05/21/2024 4:32 PM EDT Called [...] Out of state residents must be in [place] at the time of their virtual visit. [...] do not, feel free to call back [phone] for an update. documented in this encounterPremier Health [facility]10-17-2024 Telephone encounter Note * Telephone Encounter - [...] Out of state residents must be in [place] at the time of their virtual visit. [...] do not, feel free to call back [phone] for an update. [facility]10-16-2024 Instructions* Patient Instructions* Michelle Webb PA-C - 05/20/2024 9:51 AM EDT Consult to neurosurgery for the aneurysm and blood thinner use Consult to PMR for botox in the right arm NO changes to medications at this time. Follow up in 4-[address] Aj documented in this encounterPremier Health [facility]10-16-2024 NoteHNO ID: [id number] Author: MICHELLE WEBB PA-C Service: ? Author Type: Physician Basketball Assembler Type: Progress Notes Filed: 05/20/2024 10:22 Note [...] well with exercise at home with his dye mixer. Compliant with his medications at this time. Does report that he has occasional staring off episodes, but dye mixer states that he is always distractible when [...] 11/10/2016. No acute findings on today's exam. Shpa-jv-fgjqyj MRA demonstrates complete occlusion of the left internal carotid artery immediately after the common carotid bifurcation. Absent flow void in the left ICA on 11/03/2016 is co (more content not included)... [facility]10-16-2024 History of Present illness Narrative* Michelle Webb [...] well with exercise at home with his dye mixer. Compliant with his medications at this time. Doesreport that he has occasional staring off episodes, but dye mixer states that he is always distractible when [...] 11/10/2016. No acute findings on today's exam. Jzyw-uv-zxkwzj MRA demonstrates complete occlusion of the left [...] (FLONASE) 50 mcg/actuation nasal spray Use 1 Premium in each nostril twice daily. Rinse mouth after use. Blood Pressure Monitor kit 1 application twice daily. Measure patient for correct size. Patient needs cuff for left arm readings. COMPOUNDED PRESCRIPTION Articulating AFO foot brace for right leg. Send to [email or web address]. Dx: I63.9 COMPOUNDED PRESCRIPTION EMBER WALKER DX I63.9 weight 162 # LORazepam (ATIVAN) 1 mg tablet Take 1-2 tablets by mouth three times a day as needed for anxiety for up to 45 days. Take 1-2 pills three times a day HISTORIES PAST MEDICAL HISTORY Diagnosis Date Acute cerebral infarction (HCC) left LEANN (acute kidney injury) ([facility]) Anemia Aneurysm ([facility]) Anxiety state Atrial fibrillation ([facility]) 11/2016 Balanitis CAD (coronary artery disease) Carotid stenosis COPD (chronic obstructive pulmonary disease) ([facility]) Dysphasia Emphysema lung ([facility]) History of blood transfusion 03/2023 Hypertension Hypoxia 03/2023 DARON (obstructive sleep apnea) PVD (peripheral vascular disease) ([facility]) Respiratory failure ([facility]) hypoxic-ventilator dependent Stroke (cerebrum) ([facility]) Tobacco abuse FAMILY HISTORY Problem Relation Age of Onset Heart Mother OR in her 70s, pacemaker Diabetes Mother Stroke [...] over results with patient, patient's , patient's dye mixer and patient's son on the phone.New MRI [...] will schedule this today. Does have a dye mixer at home and does alot of physical exercise, encouraged continuation of this. Patient and family agreeable to treatment plan of care at this time, questions were answered. Patient to follow-up in 4 to 5 [address] or sooner [address] Dr[address] Aj. Michelle Webb PA-C I spent a total of 45 minutes on the date of the service which included preparing to see the patient, [id number] patient care, completing clinical documentation, obtaining and/or reviewing separately obtained history, performing a medically appropriate examination, counseling and educating the pat ient/family/caregiver, and ordering medications, tests, or procedures. This document has been created with the use of voice recognition technology. It may contain inaccuracies: (e.g. misspellings, inaccurate syntax or word sense) that have escaped review. documented in this encounterPremier Health [facility]10-11-2024 Telephone encounter Note * Telephone Encounter - Therese Casas MA - 05/15/2024 11:45 AM EDT PCP ordered. Therese Casas MA [facility]10-11-2024 Miscellaneous Notes* Telephone Encounter - Therese Casas MA - 05/15/2024 11:45 AM EDT PCP ordered. Therese Casas MA * Telephone Encounter - Kia Waters LPN - 05/14/2024 4:35 PM EDT Flaquita from [facility] called. She is asking for updated oxygen orders to be faxed to as patient is planning to go out of town. Kia Waters LPN documented in this encounterPremier Health [facility]10-10-2024 Telephone encounter Note * Telephone Encounter - Monica Cruz MA - 05/14/2024 4:54 PM EDT Faxed. Monica Cruz MA [facility]10-10-2024 Miscellaneous Notes* Telephone Encounter - Monica Cruz [...] - 05/14/2024 2:21 PM EDT Flaquita from [facility] calling asking for order for oxygen for the patient to have set up in [place] on 05/22 for several days. She can not tell me if he is going to have testing or vacationing there. The original provider who ordered his oxygen back in 2021 was Earl Pate from [facility]. Sheis asking for orders to be faxed to [phone]. She is going to reach out and talk to patient to find out more information about this trip. Please advise documented in this encounterPremier Health [facility]10-10-2024 Telephone encounter Note * Telephone Encounter - Rachel Buckley MA - 05/14/2024 4:46 PM EDT Order on PCP's desk to sign. Rachel Buckley MA [facility]10-10-2024 Telephone encounter Note* Telephone Encounter - Jaci Arroyo MD - 05/14/2024 4:39 PM EDT Order printed Jaci Arroyo MD [facility]10-10-2024 Telephone encounter Note* Telephone Encounter - Kia Waters LPN - 05/14/2024 4:35 PM EDT Flaquita from [facility] called. She is asking for updated oxygen orders to be faxed to as patient is planning to go out of town. Kia Waters LPN [facility]10-10-2024 Telephone encounter Note* Telephone Encounter - Loida Vazquez LPN - 05/14/2024 2:21 PM EDT Flaquita from [facility] calling asking for order for oxygen for the patient to have set up in [place] on 05/22 for several days. She can not tell me if he is going to have testing or vacationing there. The original provider who ordered his oxygen back in 2021 was Earl Pate from [facility]. Sheis asking for orders to be faxed to [phone]. She is going to reach out and talk to patient to find out more information about this trip. Please advise [facility]10-08-2024 Telephone encounter Note* Telephone Encounter - Mariano Beckman APRN.CNP - 05/12/2024 11:04 AM EDT The following approved medication requests have been transmitted electronically. Requested Prescriptions Pending Prescriptions Disp Refills busPIRone (BUSPAR) 15 mg tablet [Pharmacy Med Name: BUSPIRONE HCL 15 MG TABLET] 270 tablet 5 Sig: take 1 tablet by mouth three times a day Mariano Beckman APRN.CNP [facility]10-08-2024 Miscellaneous Notes* Telephone Encounter - Mariano Beckman APRN.CNP - 05/12/2024 11:04 AM EDT The following approved medication requests have been transmitted electronically. Requested Prescriptions Pending Prescriptions Disp Refills busPIRone (BUSPAR) 15 mg tablet [Pharmacy Med Name: BUSPIRONE HCL 15 MG TABLET] 270 tablet 5 Sig: take 1 tablet by mouth three times a day Mariano Beckman APRN.CNP documented in this encounterPremier Health [facility]10-04-2024 Telephone encounter Note * Telephone Encounter - Mayela Mcgrath LPN - 05/08/2024 12:25 PM EDT Yes 05/20/24 will be ok. Mayela Mcgrath LPN May 08, 2024 12:25 PM [facility]10-04-2024 Miscellaneous Notes* Telephone Encounter - Mayela Mcgrath [...] is soon enough for patient's appt with [facility]? Please advise . * Telephone Encounter - [...] consult. Dania Aj MD documented in this encounterPremier Health [facility]10-04-2024 Telephone encounter Note * Telephone Encounter - Dania Aj Jr., MD - 05/08/2024 12:19 PM EDT Neurosurgery consult placed. [facility]10-04-2024 Telephone encounter Note* Telephone Encounter - Milan [...] is soon enough for patient's appt with [facility]? Please advise . [facility]10-04-2024 Telephone encounter Note* Telephone Encounter - Amaya Blanco - 05/08/2024 9:53 AM EDT Spoke to spouse and scheduled patient with [place] for 05/20 and spouse is requesting a return with results prior to office visit. [facility]10-04-2024 Telephone encounter Note* Telephone Encounter - Eliana [...] agrees, will place consult. Dania Aj MD [facility]10-03-2024 NoteIMPRESSION: Evolution of now remote large left MCA territory infarct with progressive gliosis and volume loss compared to 11/10/2016. No acute findings on today's exam. Rdhk-ba-eojtor MRA demonstrates complete occlusion of the left [...] the pericallosal area. (Series 100, images 138-144). Reclamation Kettle Tender: [facility] Transcribe Date/Time: May 07 2024 2:43P Dictated by : JODI ARECHIGA MD This examination was interpreted and the report reviewed and electronically signed by: YARY MUNOZ MD on May 07 2024 3:31PM [facility] DIVISION OF [id number] NoteIMPRESSION: Evolution of now remote large left MCA territory infarct with progressive gliosis and volume loss compared to 11/10/2016. No acute findings on today's exam. Turs-jr-vryfjh MRA demonstrates complete occlusion of the left [...] the pericallosal area. (Series 100, images 138-144). Reclamation Kettle Tender: [facility] Transcribe Date/Time: May 07 2024 2:43P Dictated by : JODI ARECHIGA MD This examination was interpreted and the report reviewed and electronically signed by: YARY MUNOZ MD on May 07 2024 3:31PM EST DIVISION OF [id number] NoteIMPRESSION: Evolution of now remote large left MCA territory infarct with progressive gliosis and volume loss compared to 11/10/2016. No acute findings on today's exam. Jevf-rh-ylwxeq MRA demonstrates complete occlusion of the left [...] the pericallosal area. (Series 100, images 138-144). Reclamation Kettle Tender: [facility] Transcribe Date/Time: May 07 2024 2:43P Dictated by : JODI ARECHIGA MD This examination was interpreted and the report reviewed and electronically signed by: YARY MUNOZ MD on May 07 2024 3:31PM EST DIVISION OF [id number] History of Present illness Narrative* Ricardo Irizarry, [...] PATIENT PRESENTS WITH AN IMPLANTABLE OR ATTACHED SECOND CLASS WELDER: No RADIOLOGY DEPARTMENT: MR; Exam(s) Completed: Head: Routine Brain [place] MRA Neck: Carotids MRA, bilateral PERIPHERAL IV DATA: Not applicable SIGNED BY: BERE Abraham) May 07, 2024 1:50 PM documented in this encounterPremier Health [facility]10-03-2024 NoteHNO ID: [id number] Author: RICARDO IRIZARRY RT(R) Service: ? Author [...] PATIENT PRESENTS WITH AN IMPLANTABLE OR ATTACHED SECOND CLASS WELDER: No RADIOLOGY DEPARTMENT: MR; Exam(s) Completed: Head: Routine Brain [place] MRA Neck: Carotids MRA, bilateral PERIPHERAL IV DATA: Not applicable SIGNED BY: RT Leigh(R) May 07, 2024 1:50 [facility]10-02-2024 Telephone encounter Note* Telephone Encounter - Nikkie Prado APRN.CNP - 05/06/2024 3:19 PM EDT GoLytely sent to [facility]. [facility]10-02-2024 Miscellaneous Notes* Telephone Encounter - Nikkie Prado APRN.CNP - 05/06/2024 3:19 PM EDT GoLytely sent to [facility]. * Telephone Encounter - Sharon Hinojosa [...] unsuccessful. Date is set for 06/29/[address] [place] [address] Cardoso and times are NEVER given until the business day prior. Times on [facility] are not correct and subject to change. They will receive accurate arrival time the business dayprior. Left voicemail for patient and Eli to call me back directly at [phone] to go over information again. Patient is needing prep Golytely sent to [facility] in [place] as it was never sent originally. Sharon Hinojosa Peanut Cleaner * Telephone Encounter - Lora James RN - 05/06/2024 2:31 PM EDT Patient's consult was with Dr. Lai on 02/24/2024, Ursula was advised for prep, however the patient is scheduled to have his colonoscopy with Dr. Cardoso. I do not see where the prep was sent to anypharmacy. A new prescription will need to be sent to [facility]. Also, I cannot confirm the time, could a airline station agent please contact the patient's , Eli? Lora James RN May 06, 2024 2:33 PM * Telephone Encounter - Meka Mireles - 05/06/2024 10:35 AM EDT Pt spouse calling about getting information on Colonoscopy. She wants to be sure that the prep is sent to the right Pharmacy. [facility] no longer open, will want it to go to [facility]. She also wants to confirm the time is going to be 10 am arrival time as previously stated. documented in this encounterPremier Health [facility]10-02-2024 Telephone encounter Note * Telephone Encounter - [...] unsuccessful. Date is set for 06/29/[address] [place] [address] Cardoso and times are NEVER given until the business day prior. [facility] are not correct and subject to change. They will receive accurate arrival time the business dayprior. Left voicemail for patient and Eli to call me back directly at [phone] to go over information again. Patient is needing prep Golytely sent to [facility] in [place] as it was never sent originally. Sharon Hinojosa Peanut Cleaner [facility]10-02-2024 Telephone encounter Note* Telephone Encounter - Lora James RN - 05/06/2024 2:31 PM EDT Patient's consult was with Dr. Lai on 02/24/2024, Ursula was advised for prep, however the patient is scheduled to have his colonoscopy with Dr. Cardoso. I do not see where the prep was sent to anypharmacy. A new prescription will need to be sent to [facility]. Also, I cannot confirm the time, could a airline station agent please contact the patient's , Eli? Lora James RN May 06, 2024 2:33 PM [facility]10-02-2024 Telephone encounter Note* Telephone Encounter - Meka Mireles - 05/06/2024 10:35 AM EDT Pt spouse calling about getting information on Colonoscopy. She wants to be sure that the prep is [facility] the [facility], will want it to go to [facility]. She also wants to confirm the time is going to be 10 am arrival time as previously stated. [facility] Work Phone: [phone]) 659-844309-30-2024 Telephone encounter Note* Telephone Encounter - Deanne Neville LPN - 05/04/2024 8:51 AM EDT RX pended for 90 day supply. Deanne Neville LPN [facility]09-30-2024 Miscellaneous Notes* Telephone Encounter - Deanne Neville LPN - 05/04/2024 8:51 AM EDT RX pended for 90 day supply. Deanne Neville LPN documented in this encounterPremier Health [facility]09-26-2024 Telephone encounter Note * Telephone Encounter - Sharon Hinojosa - 04/30/2024 11:06 AM EDT 06/24/2024 date has switched to Dr. Lai as the providers schedules has changed. Patient was aware new dates were coming based on new providers starting and others leaving Patient rescheduled to [facility] ONLY in [place] on 06/29/2024 Sharon Hinojosa Peanut Cleaner [facility]09-26-2024 Miscellaneous Notes* Telephone Encounter - Sharon Hinojosa - 04/30/2024 11:06 AM EDT 06/24/2024 date has switched to Dr. Lai as the providers schedules has changed. Patient was aware new dates were coming based on new providers starting and others leaving Patient rescheduled to [facility] ONLY in [place] on 06/29/2024 Sharon Hinojosa Peanut Cleaner * Telephone Encounter - Sharon Hinojosa - 02/25/2024 8:19 AM EDT Patient scheduled on 06/24/[address] [place] [address] Cardoso for scopes. Patient requesting new provider when she is able to start for a sooner date. Patient does not joelle Lai or Earline Hinojosa Peanut Cleaner documented in this encounterPremier Health [facility]09-05-2024 Telephone encounter Note * Telephone Encounter - Jaci Arroyo MD - 04/09/2024 2:43 PM EDT OK to refill as ordered Jaci Arroyo MD [facility]09-05-2024 Miscellaneous Notes* Telephone Encounter - Jaci Arroyo [...] 09, 2024 2:33 PM documented in this encounterPremier Health [facility]09-05-2024 Telephone encounter Note * Telephone Encounter - Loida Vaqzuez LPN - 04/09/2024 2:32 PM EDT Patient [...] Vazquez LPN April 09, 2024 2:33 PM [facility]08-30-2024 Telephone encounter Note* Telephone Encounter - Shefali Lyles LPN - 04/03/2024 4:36 PM EDT Images from the original note were not included. Electronic PA rec'd and completed for lorazepam. This was approved. Prior authorization approved Payer: [employer] [phone] Note from payer: CaseId:[id number];Status:Approved;Review Type:Prior Auth;Coverage Start Date:03/04/2024;Coverage End Date:04/03/2025; Approval [...] To be filled at: [id number] [place] [address] - [address] [phone] [id number] [facility]08-30-2024 Miscellaneous Notes* Telephone Encounter - Shefali Lyles LPN - 04/03/2024 4:36 PM EDT Images from the original note were not included. Electronic PA rec'd and completed for lorazepam. This was approved. Prior authorization approved Payer: [employer] [phone] Note from payer: CaseId:[id number];Status:Approved;Review Type:Prior Auth;Coverage Start Date:03/04/2024;Coverage End Date:04/03/2025; Approval [...] to its destination. To be filled at: [id number] [place] [address] - [address] [phone] [id number] documented in this encounterPremier Health [facility]08-30-2024 History of Present illness Narrative* Jaci Arroyo [...] Currently receiving PT/OT and Speech through [facility]. Hx of rectal mass, follow with Colorectal [...] maybe he needs to be in a mcfp for a little while and do some out patient counseling. Pt is agreeable, he states he wants to be in a mcfp. Cardio: Hx of CAD, Afib and HTN. [...] with Neurology, Dr. Aj and Dena Bazan, LAUNDR[facility] OPERATOR WASH ROOM and Dr. Cruz in Vascular.Pt was to have sleep study done due to issues his CPAP masks, discussed Inspire device. P ton current regimen of Zetia 10 mg once daily, Eliquis 5 mg 1 tab po bid, Lipitor 40 mg once daily an ASA 81 mg daily. Pt is PT/OT and Speech due to CVA hx. [facility] OT provider set him up with [employer] that came out and fitted him for the hand stimulator. Unsure where to go to get stimulator now that thelady at [facility] is no longer there. Pulm: Follows with Dr. Mcgrath for COPD and hx of respiratory infection and pneumonia. Pt uses O2 at night. Overall from pt and Pulm, pt is stable currently. Denies any issues with breathing. Takes daily Stiolto Respimat and occasional use of Albuterol in the evening. Pt uses 4 L of O2 at night, receives supplies through [facility]. Past medical history, appointments, medications, allergies reviewed. Previous Medical History PAST MEDICAL HISTORY No date: Acute cerebral infarction ([facility]) Comment: left No date: LEANN (acute kidney injury) ([facility]) No date: Anemia No date: Aneurysm ([facility]) No date: Anxiety state 11/2016: Atrial fibrillation ([facility]) No date: Balanitis No date: CAD (coronary artery disease) No date: Carotid stenosis No date: COPD (chronic obstructive pulmonary disease) ([facility]) No date: Dysphasia No date: Emphysema lung ([facility]) 03/2023: History of blood transfusion No date: Hypertension 03/2023: Hypoxia No date: DARON (obstructive sleep apnea) No date: PVD (peripheral vascular disease) ([facility]) No date: Respiratory failure ([facility]) Comment: hypoxic-ventilator dependent No date: Stroke (cerebrum) ([facility]) No date: Tobacco abuse Previous Surgical History [...] Problem Relation Age of Onset Heart Mother OR in her 70s, pacemaker Diabetes Mother Stroke [...] (FLONASE) 50 mcg/actuation nasal spray Use 1 Premium in each nostril twice daily. Rinse mouth after use. Blood Pressure Monitor kit 1 application twice daily. Measure patient for correct size. Patient needs cuff for left arm readings. COMPOUNDED PRESCRIPTION Articulating AFO foot brace for right leg. Send to [email or web address]. Dx: I63.9 COMPOUNDED PRESCRIPTION EMBER WALKER DX [...] current medications. Can consider Respite care or mcfp placement 4. Coronary artery disease involving [place] coronary artery of [place] heart without angina pectoris- ICD9: 414.01, ICD10: [...] Continue current medications. Continue with Neuro Dr. Aj Follow up as needed. Medical Decision Making: Problems: Moderate: 1+ chronic illnesses with change and 2+ stable chronic illnesses Risk: Moderate: Drug management Medical Decision Making Level: 4 - Moderate The documentation for this note was completed by Monica Cruz MA acting as scribe for Jaci Arroyo MD. April 03, 2024 4:05 PM. Moniac Cruz MA documented in this encounterPremier Health [facility]08-30-2024 NoteHNO ID: [id number] Author: JACI ARROYO MD Service: ? Author [...] Currently receiving PT/OT and Speech through [facility]. Hx of rectal mass, follow with Colorectal [...] maybe he needs to be in a mcfp for a little while and do some out patient counseling. Pt is agreeable, he states he wants to be in a mcfp. Cardio: Hx of CAD, Afib and HTN. [...] PT/OT and Speech due to CVA hx. [facility] OT provider set him up with [employer] that came out and fitted him for the hand stimulator. Unsure where to go to get stimulator now that the lady at [facility] is no longer there. Pulm: Follows with Dr. Mcgrath for COPD and hx of respiratory infection and pneumonia. Pt uses O2 at night. Overall from pt and Pulm, pt is stable currently. Denies any issues with breathing. Takes daily Stiolto Respimat and occasional use of Albuterol in the evening. Pt uses 4 L of O2 at night, receives supplies through [facility]. Past medical history, appointments, medications, allergies reviewed. Previous Me (more content not included)...[facility]08-28-2024 Telephone encounter Note* Telephone Encounter - Chelly [...] appointment. She verbalizes understanding. Chelly Cordero LPN [facility]08-28-2024 Miscellaneous Notes* Telephone Encounter - Chelly Cordero [...] understanding. Chelly Cordero LPN documented in this encounterPremier Health [facility]08-27-2024 Telephone encounter Note * Telephone Encounter - Jaci Arroyo MD - 03/31/2024 4:16 PM EDT OK to refill as ordered Jaci Arroyo MD [facility]08-27-2024 Miscellaneous Notes* Telephone Encounter - Jaci Arroyo [...] 31, 2024 2:34 PM documented in this encounterPremier Health [facility]08-27-2024 Telephone encounter Note * Telephone Encounter - [...] Karen Shantelle March 31, 2024 2:34 PM [facility]08-19-2024 Instructions* Patient Instructions* Kimo Mcgrath MD - 03/23/2024 2:56 PM EDT Due for Lung Cancer Screening Chest CT at [facility] in May documented in this encounterPremier Health [facility]08-19-2024 History of Present illness Narrative* Kimo Mcgrath MD - 03/23/2024 2:45 PM EDT Images from the original note were not included. . Respiratory Norris Note Patient name: Afshin Zee PCP: Jaci Arroyo MD CC: Follow-up COPD HPI: Afshin Zee 68 year old male former [id number]-[id number] smoker, quitting in 2016 with PMH significantfor [...] needed albuterol. Last lung cancer screening at [facility] negative for any suspicious lesions. From a [...] Imaging / Diagnostic Studies: 05/22/2023, 2:56 PM [facility] Low Dose CT Lung Screening NODULES: [...] apnea) No date: PVD (peripheral vascular disease) ([facility]) No date: Respiratory failure ([facility]) Comment: hypoxic-ventilator dependent No date: Stroke (cerebrum) ([facility]) No date: Tobacco abuse ALLERGIES Allergen Reactions [...] (FLONASE) 50 mcg/actuation nasal spray Use 1 Premium in each nostril twice daily. Rinse mouth [...] foot brace for right leg. Send to [email or web address]. Dx: I63.9 COMPOUNDED PRESCRIPTION EMBER WALKER DX [...] Problem Relation Age of Onset Heart Mother OR in her 70s, pacemaker Diabetes Mother Stroke Father other (AAA) Father other (CAD) Brother Hypertension Brother PAST SURGICAL HISTORY 08/07/2023: ANKLE SURGERY HX; Right Comment: Dr. Kim. Right ankle ORIF due to fracture 10/30/2016: CABG CONSULT Comment: multi vessel 04/10/2023: COLONOSCOPY SCREENING 04/11/2023: EGD [facility]/O [facility] SPEC VARICIES INJ 04/10/2023: EGD W/O [facility] SPEC VARICIES INJ 09/17/2016: HEART CATHETERIZATION 2017: [...] cancer screening in May. Fax order to [facility] 3. Dependence on nocturnal oxygen -No daytime oxygen need -Patient is compliant with and benefits from supplemental oxygen at night. Kimo Mcgrath MD [facility] documented in this encounterPremier Health [facility]08-19-2024 NoteHNO ID: [id number] Author: KIMO MCGRATH MD Service: ? Author Type: Physician Type: Progress Notes Filed: 03/23/2024 15:36 Note Text: . Respiratory Norris Note Patient name: Afshin Zee PCP: Jaci Arroyo MD CC: Follow-up COPD HPI: Afshin Zee 68 year old male former 85-[id number]-[id number] smoker, quitting in 2016 with PMH significant [...] needed albuterol. Last lung cancer screening at [facility] negative for any suspicious lesions. From a [...] Imaging / Diagnostic Studies: 05/22/2023, 2:56 PM [facility] Low Dose CT Lung Screening NODULES: [...] apnea) No date: PVD (peripheral vascular disease) ([facility]) No date: Respiratory failure ([facility]) Comment: hypoxic-ventilator dependent No date: Stroke (cerebrum) ([facility]) No date: Tobacco abuse ALLERGIES Allergen Reactions [...] COATED) 81 mg EC (more content not included)...[facility]08-07-2024 Telephone encounter Note* Telephone Encounter - Alessia [...] will follow directions given to her by [facility]. JANINA Iglesias [facility]08-07-2024 Miscellaneous Notes* Telephone Encounter - Alessia Jay [...] will follow directions given to her by [facility]. JANINA Iglesias * Telephone Encounter - Amaya [...] difficult to get it. states she called [facility] about getting the disc and reports I am getting the run around and they are making this difficult. Eli reports she was informed by [facility] to complete further information of the disc request online and she states she does not want to do that. She states she should be able to get this disc easily because she is the POA. She is wishing to have Dr. Aj's involvement in getting this disc. Please call patient to discuss further. Thank you. documented in this encounterPrem[facility]08-07-2024 Telephone encounter Note * Telephone Encounter - [...] difficult to get it. states she called [facility] about getting the disc and reports I am getting the run around and they are making this difficult. Eli reports she was informed by [facility] to complete further information of the disc request online and she states she does not want to do that. She states she should be able to get this disc easily because she is the POA. She is wishing to have Dr. Aj's involvement in getting this disc. Please call patient to discuss further. Thank you. [facility]08-05-2024 History of Present illness Narrative* Dania Aj [...] stroke, occurred in 2016, was seen at [facility] for stroke, went in for Quad bypass [...] per notes of IR Dr. West at [facility], patientunderwent subclavian artery stent on left in [...] antiplt therapy that appears to be per manager product support and vascular. Reviewof records indicate pt was [...] (FLONASE) 50 mcg/actuation nasal spray Use 1 Premium in each nostril twice daily. Rinse mouth after use. (Patient taking differently: Use 1 Premium in each nostril two times a day as needed for cold/allergy symptoms. Rinse mouth after use.) Blood Pressure Monitor kit 1 application twice daily. Measure patient for correct size. Patient needs cuff for left arm readings. COMPOUNDED PRESCRIPTION Articulating AFO foot brace for right leg. Send to [email or web address]. Dx: I63.9 COMPOUNDED PRESCRIPTION EMBER WALKER DX [...] MEDICAL HISTORY No date: Acute cerebral infarction ([facility]) Comment: left No date: LEANN (acute kidney injury) ([facility]) No date: Anemia No date: Aneurysm ([facility]) No date: Anxiety state 11/2016: Atrial fibrillation ([facility]) No date: Balanitis No date: CAD (coronary artery disease) No date: Carotid stenosis No date: COPD (chronic obstructive pulmonary disease) ([facility]) No date: Dysphasia No date: Emphysema lung ([facility]) 03/2023: History of blood transfusion No date: Hypertension 03/2023: Hypoxia No date: DARON (obstructive sleep apnea) No date: PVD (peripheral vascular disease) ([facility]) No date: Respiratory failure ([facility]) Comment: hypoxic-ventilator dependent No date: Stroke (cerebrum) ([facility]) No date: Tobacco abuse FAMILY HISTORY Problem Relation Age of Onset Heart Mother OR in her 70s, pacemaker Diabetes Mother Stroke [...] which included preparing to see the patient, [id number] patient care, completing clinical documentation, obtaining and/or reviewing separately obtained history, performing a medically appropriate examination, counseling and educating the pa tient/family/caregiver, ordering medications, tests, or procedures, independently interpreting results (not separately reported), and communicating results to the patient/family/caregiver. documented in this encounterPremier Health [facility]07-31-2024 Telephone encounter Note * Telephone Encounter - Khris Gutierrez RN - 03/04/2024 11:29 AM EDT Pts called in reporting Pt needed multivitamin called in. Let her know that provider had called it in today. [facility]07-31-2024 Miscellaneous Notes* Telephone Encounter - Khris Gutierrez [...] 04, 2024 9:31 AM documented in this encounterPremier Health [facility]07-31-2024 Telephone encounter Note * Telephone Encounter - [...] three times a day. Jessie Harmon APRN.CNP [facility]07-31-2024 Telephone encounter Note* Telephone Encounter - Camila [...] Camila Fry March 04, 2024 9:31 AM [facility]07-29-2024 History of Present illness Narrative* Robin Johansen MD - 03/02/2024 3:00 PM EDT Images from the original note were not included. [facility] SE[facility]AL CARDIOLOGY Cardiology ([facility]) [address] [facility] [id number] OUTPATIENT VISIT DATE 03/02/2024 PRIMARY CARE PHYSICIAN: Jaci Arroyo [address] [place] [address] HISTORY OF PRESENT ILLNESS: Mr. Zee is [...] year and ended up with surgery at [facility]. 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) Respiratory failure (HCC) hypoxic-ventilator dependent Stroke (cerebrum) ([facility]) Tobacco abuse PAST SURGICAL HISTORY Procedure Laterality [...] Problem Relation Age of Onset Heart Mother OR in her 70s, pacemaker Diabetes Mother Stroke [...] (FLONASE) 50 mcg/actuation nasal spray Use 1 Premium in each nostril twice daily. Rinse mouth after use. (Patient taking differently: Use 1 Premium in each nostril two times a day as needed for cold/allergy symptoms. Rinse mouth after use.) potassium chloride (K-TAB) 10 mEq tablet Take 2 tablets by mouth three times daily. Blood Pressure Monitor kit 1 application twice daily. Measure patient for correct size. Patient needs cuff for left arm readings. COMPOUNDED PRESCRIPTION Articulating AFO foot brace for right leg. Send to [email or web address]. Dx: I63.9 COMPOUNDED PRESCRIPTION EMBER WALKER DX [...] prior CC echocardiographic exam for comparison. Echocardiogram [facility] 12/16/2020: Left ventricular systolic function is normal [...] AND RECOMMENDATIONS: 1. Coronary artery disease involving [place] coronary artery of [place] heart without angina pectoris- ICD9: 414.01, ICD10: [...] proceduralist Robin Johansen MD documented in this encounterPremier Health [facility]07-29-2024 Instructions* Patient Instructions* Robin Johansen MD - 03/02/2024 2:50 PM EDT You will hold the Eliquis for 48 hours prior to your colonoscopy documented in this encounterPremier Health [facility]07-29-2024 Telephone encounter Note * Telephone Encounter - Lacy Rosas MA - 03/02/2024 11:06 AM EDT Called and spoke with Eli, patient's . given providers response. States he has an appointment next Saturday with and will check at his Neurology appointment. [facility]07-29-2024 Miscellaneous Notes* Telephone Encounter - Lacy Rosas MA - 03/02/2024 11:06 AM EDT Called and spoke with Eli, patient's . given providers response. States he has an appointment next Saturday with and will check at his Neurology appointment. * Telephone Encounter - Lacy Rosas MA - 03/02/2024 11:04 AM EDT Images from the original note were not included. Alisa Saul PA-C [facility]2 hours ago (8:04 AM) Sorry, [...] is doing physical therapy at [facility] and PT had suggested he may be a good candidate. Asking if our office knows of a provider that completes this within [facility]? Deanne Neville LPN documented in this encounterCleveland [id number] Telephone encounter Note * Telephone Encounter - Lacy Rosas MA - 03/02/2024 11:04 AM EDT Images from the original note were not included. Alisa Saul PA-C [facility]2 hours ago (8:04 AM) Sorry, I am not aware of any orthopedic providers that inject Botox for hand contractures. That maybe something that is offered by neurology, since it is a neurotoxin. [facility]07-26-2024 Telephone encounter Note* Telephone Encounter - Bee Hernandez, DIANE - 02/28/2024 11:18 AM EDT Mark Benitez- I forwarded this to care team to inquire if we provide this service and if not recommendations for another provider. I will call you back when I get the information. Bee RN [facility]07-26-2024 Telephone encounter Note* Telephone Encounter - Deanne Neville LPN - 02/28/2024 8:53 AM EDT Patient's spouse, Eli, calling inquiring about possible Botox injection in patient's right hand. He currently has a hand stimulator to assist in opening and closing follow a CVA in October 2016. He is doing physical therapy at [facility] and PT had suggested he may be a good candidate. Asking if our office knows of a provider that completes this within [facility]? Deanne Neville LPN [facility]07-23-2024 Telephone encounter Note* Telephone Encounter - Sharon Hinojosa - 02/25/2024 8:19 AM EDT Patient scheduled on 06/24/[address] [place] [address] Cardoso for scopes. Patient requesting new provider when she is able to start for a sooner date. Patient does not lai Joelle or Earline Hinojosa Peanut Cleaner [facility]07-22-2024 Nurse Note* Mayela Mcgrath LPN - 02/24/2024 4:35 PM EDT Patient educated, patient verbalized understanding. No further questions at this time. Mayela Mcgrath LPN February 24, 2024 4:35 PM [facility]07-22-2024 Nurse Note* Mayela Mcgrath LPN - 02/24/2024 [...] 04/2023 Charla Shaikh RN documented in this encounterPremier Health [facility]07-22-2024 Nurse Note* Charla Shaikh RN - 02/24/2024 [...] N/A Last Colonoscopy: 04/2023 Charla Shaikh RN [facility]07-22-2024 History of Present illness Narrative* Lacy Lai [...] multi vessel COLONOSCOPY SCREENING 04/10/2023 EGD W/O [facility] SPEC VARICIES INJ 04/11/2023 EGD W/[facility] SPEC VARICIES INJ 04/10/2023 HEART CATHETERIZATION 09/17/2016 [...] (FLONASE) 50 mcg/actuation nasal spray Use 1 Premium in each nostril twice daily. Rinse mouth after use. (Patient taking differently: Use 1 Premium in each nostril two times a day as needed for cold/allergy symptoms. Rinse mouth after use.) potassium chloride (K-TAB) 10 mEq tablet Take 2 tablets by mouth three times daily. Blood Pressure Monitor kit 1 application twice daily. Measure patient for correct size. Patient needs cuff for left arm readings. COMPOUNDED PRESCRIPTION Articulating AFO foot brace for right leg. Send to [email or web address]. Dx: I63.9 COMPOUNDED PRESCRIPTION EMBER GUO DX [...] Problem Relation Age of Onset Heart Mother OR in her 70s, pacemaker Diabetes Mother Stroke Father other (AAA) Father other (CAD) Brother Hypertension Brother The review of systems data was entered by the nurse and reviewed by ma Nursing Notes: Charla Shaikh RN 02/24/2024 4:33 [...] will be scheduled for the procedure at [facility] Diagnoses: (Z86.010) History of colonic polyps (primary encounter diagnosis) I have confirmed and edited as necessary, the PFSH and ROS obtained by others. Medical Decision Making: Problems: Moderate: 2+ stable chronic illnesses Risk: Moderate: Decision on minor surgery w/ risk factors Medical Decision Making Level: 4 - Moderate Lacy Lai MD documented in this encounterPrem[facility]07-01-2024 Telephone encounter Note * Telephone Encounter - Monica Cruz MA - 02/03/2024 6:42 PM EDT Pt notified. Advised to notify office if he starts having blood in the stool or diarrhea. Monica Cruz MA [facility]07-01-2024 Miscellaneous Notes* Telephone Encounter - Monica Cruz [...] pt. Therese Paz LPN documented in this encounterPremier Health [facility]07-01-2024 Telephone encounter Note * Telephone Encounter - Jaci Arroyo MD - 02/03/2024 6:23 PM EDT An infection in his bowel would cause diarrhea; if just having foul smelling stool it may be causedby something he ate. Jaci Arroyo MD [facility]07-01-2024 Telephone encounter Note* Telephone Encounter - Therese Paz LPN - 02/03/2024 10:55 AM EDT calling with a concern that pt may have a stool infection. Reason: BM fowl smelling DENIES: diarrhea/bleeding. Please advise pt. Therese Paz LPN [facility]06-27-2024 Telephone encounter Note* Telephone Encounter - Jaci Arroyo MD - 01/30/2024 4:04 PM EDT Noted Jaci Arroyo MD [facility]06-27-2024 Miscellaneous Notes* Telephone Encounter - Jaci Arroyo MD - 01/30/2024 4:04 PM EDT Noted Jaci Arroyo MD * Telephone Encounter - Amaya Kessler RN - 01/30/2024 3:35 PM EDT Cathy Siu with [facility] calling to update PCP that patient has returned home from his respite stay at [facility] in [place] and there are no concerns at this time. Amaya Kessler RN documented in this encounterPrem[facility]06-27-2024 Telephone encounter Note * Telephone Encounter - Amaya Kessler RN - 01/30/2024 3:35 PM EDT Cathy Siu with [facility] calling to update PCP that patient has returned home from his respite stay at [facility] in [place] and there are no concerns at this time. Amaya Kessler RN [facility]06-19-2024 Telephone encounter Note* Telephone Encounter - Kassandra Tai LPN - 01/22/2024 4:52 PM EDT Patient's nurse Tanisha notified of recommendations, verbalizes understanding of instructions. Kassandra Tai LPN [facility]06-19-2024 Miscellaneous Notes* Telephone Encounter - Kassandra Tai [...] PM EDT Nurse Garay calling from [facility] with a question regarding patient's medications. Tanisha [...] Garay if provider has recommended medication changes. [phone]. Thank you. documented in this encounterPremier Health [facility]06-19-2024 Telephone encounter Note * Telephone Encounter - Jessie Harmon APRN.CNP - 01/22/2024 4:24 PM EDT Can you please call the nurse back at the [facility] and let her know that he is taking all 3 medications. He does follow with cardiology, if she has any further questions we may need todirect those to cardiology. Please let me know if she has any additional questions. Thank you. Jessie Harmon APRN.LAUNDRY OPERATOR WASH ROOM [facility]06-19-2024 Telephone encounter Note* Telephone Encounter - Amaya Kessler RN - 01/22/2024 12:43 PM EDT Nurse Tanisha calling from [facility] with a question regarding patient's medications. Tanisha [...] Garay if provider has recommended medication changes. [phone]. Thank you. [facility]06-13-2024 Telephone encounter Note* Telephone Encounter - Kimo Adamson MA - 01/16/2024 11:39 AM EDT PA was approved and notified Authorized from December 17, 2023 to January 15, 2025 Kimo Adamson MA [facility]06-13-2024 Miscellaneous Notes* Telephone Encounter - Kimo Adamson [...] formulary meds available : NO Insurance Company: [address] [place] [employer] phone number: [phone] Patient insurance ID number: [id number] Therese Paz LPN . documented in this encounterPremier Health [facility]06-13-2024 Telephone encounter Note * Telephone Encounter - Kimo Adamson MA - 01/16/2024 11:38 AM EDT Submitted electronic YAW Adamson MA [facility]06-13-2024 Telephone encounter Note* Telephone Encounter - Therese [...] formulary meds available : NO Insurance Company: [address] [place] [employer] phone number: [phone] Patient insurance ID number: [id number] Therese Paz LPN . [facility]06-06-2024 Telephone encounter Note* Telephone Encounter - Kathy [...] over seven years ago. Kathy Paz LPN [facility]06-06-2024 Miscellaneous Notes* Telephone Encounter - Kathy Paz [...] Paz LPN - 01/09/2024 9:10 AM EDT [facility] PSG results scanned for review. Kathy Paz LPN Scan on 01/09/2024 8:14 AM by Provider, JEREMY Nicholson: PSG 01/03/2024 * Telephone Encounter - Eliana Grigsby LPN - 01/07/2024 11:07 AM EDT Sleep Study is pending via [facility]. Eliana Grigsby LPN * Telephone Encounter - Meka Mireles - 01/07/2024 9:37 AM EDT Pts spouse called to check status of results of sleep study done at [facility]. Pt sees Dr. Aj in sooner than available appointments with Dena Bazan who ordered study. Spouse wonders if Dena Bazan would review results and call them. documented in this encounterPremier Health [facility]06-06-2024 Telephone encounter Note * Telephone Encounter - Dena Bazan APRN.CNP - 01/09/2024 11:56 AM EDT Please tell that his sleep apnea is mild, so he doesn't qualify for [facility]. Dena Bazan APRN.ESTELLA [facility]06-06-2024 Telephone encounter Note* Telephone Encounter - Rachel Buckley MA - 01/09/2024 11:28 AM EDT Called and received identifiable VM for Eli and Afshin. LM on Eli's VM notifying her an Rx has been sent into [facility] for pt. If questions to contact the office and ask to speak with FM Triage Nurse. Rahcel Buckley MA [facility]06-06-2024 Miscellaneous Notes* Telephone Encounter - Rachel Buckely MA - 01/09/2024 11:28 AM EDT Called and received identifiable VM for Eli and Afshin. LM on Eli's VM notifying her an Rx has been sent into [facility] for pt. If questions to contact the office and ask to speak with FM Triage Nurse. Rachel Buckley MA * Telephone Encounter - Jaci Arroyo MD - 01/09/2024 11:08 AM EDT Rx sent to [facility] (erroneously sent to [facility]) Jaci Arroyo MD * Telephone Encounter - Kim Person LPN - 01/09/2024 9:34 AM EDT Spouse Eli reports pt has bright redness & pain at the tip of his penis X couple days. Eli states pt gets this occasionally & a med is usually just called in for him. Pt uses [facility] in [place]. Please notify Eli as soon as possible if/when something is called in. Kim Person LPN documented in this encounterPremier Health [facility]06-06-2024 Telephone encounter Note * Telephone Encounter - Jaci Arroyo MD - 01/09/2024 11:08 AM EDT Rx sent to [facility] (erroneously sent to [facility]) Jaci Arroyo MD [facility]06-06-2024 Telephone encounter Note* Telephone Encounter - Kim Person LPN - 01/09/2024 9:34 AM EDT Spouse Eli reports pt has bright redness & pain at the tip of his penis X couple days. Eli states pt gets this occasionally & a med is usually just called in for him. Pt uses [facility] in [place]. Please notify Eli as soon as possible if/when something is called in. Kim Person LPN [facility]06-06-2024 Telephone encounter Note* Telephone Encounter - Kathy Paz LPN - 01/09/2024 9:10 AM EDT [facility] PSG results scanned for review. Kathy Paz LPN Scan on 01/09/2024 8:14 AM by Provider, External, BRAULIOC: PSG 01/03/2024 [facility] [place] Telephone encounter Note* Telephone Encounter - Milan Brunson RN - 01/08/2024 2:39 PM EDT Faxed demographic sheet to [facility], per HUNTER Musa, request. Reports patient will be coming there. . Confirmation received. [facility]06-05-2024 Miscellaneous Notes* Telephone Encounter - Milan Brunson RN - 01/08/2024 2:39 PM EDT Faxed demographic sheet to [facility], per HUNTER Musa, request. Reports patient will be coming there. . Confirmation received. documented in this encounterPrem[facility]06[facility] Telephone encounter Note * Telephone Encounter - Eliana Grigsby LPN - 01/07/2024 11:07 AM EDT Sleep Study is pending via [facility]. Eliana Grigsby LPN [facility]06-04-2024 Telephone encounter Note* Telephone Encounter - Meka Mireles - 01/07/2024 9:37 AM EDT Pts spouse called to check status of results of sleep study done at [facility]. Pt sees Dr. Aj in sooner than available appointments with Dena Bazan who ordered study. Spouse wonders if Denachrissy Bazan would review results and call them. [facility] Work Phone: 1(263) 297-973005-28-2024 Nurse Note* Rachel Buckley MA - 12/31/2023 3:49 PM EDT OV note from today was faxed to at the [facility] at [phone]. Rachel Buckley MA [facility]05-28-2024 Nurse Note* Rachel Buckley MA - 12/31/2023 3:49 PM EDT OV note from today was faxed to at the [facility] at [phone]. Rachel Buckley MA documented in this encounterPremier Health [facility]05-28-2024 Telephone encounter Note * Telephone Encounter - Rachel Buckley MA - 12/31/2023 3:07 PM EDT Pt in office for a visit with PCP. requesting refill of Losartan to go to [facility]. Notified pt and message would be routed to Provider. Last OV: 07/08/23 Next OV: 03/02/24 Last Rx: 12/25/22 #90 w/3. Rachel Buckley MA [facility]05-28-2024 Miscellaneous Notes* Telephone Encounter - Rachel Buckley MA - 12/31/2023 3:07 PM EDT Pt in office for a visit with PCP. requesting refill of Losartan to go to [facility]. Notified pt and message would be routed to Provider. Last OV: 07/08/23 Next OV: 03/02/24 Last Rx: 12/25/22 #90 w/3. Rachel Buckley MA documented in this encounterPremier Health [facility]05-28-2024 History of Present illness Narrative* Jaci Arroyo [...] PT/OT/Speech while in Respite care at the [place]. Eli will be going to [place] from January 17 - January 24. Here with GenieeTete from [facility] [employer] She will be going to the [place] with patient. Pt reports that he's not [...] is scheduled to have PSG done at [facility] this Saturday. Has went through 3 masks [...] [facility] the [facility]. Working with [employer] [facility] - Kandy Fernandez. P#:[phone]. F#: [phone] HM - Behavioral Health Screening completed. Declined [...] Problem Relation Age of Onset Heart Mother OR in her 70s, pacemaker Diabetes Mother Stroke [...] (FLONASE) 50 mcg/actuation nasal spray Use 1 Premium in each nostril twice daily. Rinse mouth [...] foot brace for right leg. Send to [email or web address]. Dx: I63.9 COMPOUNDED PRESCRIPTION EMBER WALKER DX [...] 11/25/2023 2.09 Monocytes % 11/25/2023 9.5 Abs [place] 11/25/2023 1.10 (H) Eosinophils % 11/25/2023 4.5 [...] I63.9 Stable 13. Coronary artery disease involving [place] coronary artery of [place] heart without angina pectoris - ICD9: 414.01, [...] Histories independently gathered by the clinical technical sales support manager and the remaining scribed note accurately describes [...] PM. Rachel Buckley MA documented in this encounterPremier Health [facility]05-24-2024 Telephone encounter Note * Telephone Encounter - Eliana Grigsby LPN - 12/27/2023 3:58 PM EDT Pt scheduled for sleep study 01-03-24 at [facility]. Eliana Grigsby LPN [facility]05-24-2024 Miscellaneous Notes* Telephone Encounter - Eliana Grigsby LPN - 12/27/2023 3:58 PM EDT Pt scheduled for sleep study 01-03-24 at [facility]. Eliana Grigsby LPN * Telephone Encounter - Eliana Grigsby LPN - 12/25/2023 2:55 PM EDT TC to [facility] Sleep lab, unable to speak with anyone. Left a VM for them to return call. Eliana Grigsby LPN * Telephone Encounter - Pati Hare LPN - 12/25/2023 10:31 AM EDT Patients calling, states that they have still not received any results from [facility] sleep lab. asking if we have received these results. They are leaving on 01/18 and would like something set upif needed. Please advise. documented in this encounterPremier [facility]05-22-2024 Telephone encounter Note * Telephone Encounter - Eliana Grigsby LPN - 12/25/2023 2:55 PM EDT TC to [facility] Sleep lab, unable to speak with anyone. Left a VM for them to return call. Eliana Grigsby LPN [facility]05-22-2024 Telephone encounter Note* Telephone Encounter - Pati Hare LPN - 12/25/2023 10:31 AM EDT Patients calling, states that they have still not received any results from [facility] sleep lab. asking if we have received these results. They are leaving on 01/18 and would like something set upif needed. Please advise. [facility]05-17-2024 Telephone encounter Note* Telephone Encounter - Eliana Grigsby LPN - 12/20/2023 4:47 PM EDT TC to who voiced understanding. Will call [facility] sleep lab next week if she is not contacted to schedule. Eliana Grigsby LPN [facility]05-17-2024 Miscellaneous Notes* Telephone Encounter - Eliana Grigsby LPN - 12/20/2023 4:47 PM EDT TC to who voiced understanding. Will call [facility] sleep lab next week if she is not contacted to schedule. Eliana Grigsby LPN * Telephone Encounter - Dena Bazan APRN.ESTELLA - 12/20/2023 4:31 PM EDT Order for iron ferrous sulfate sent to pharmacy. Recheck labs in 3 mos, order placed. Also, called to ask why PSG ordered for [facility]--please tell her we did send order to [facility]. The order automatically goes to [facility] (we should have cancelled that). Dena Bazan APRN.LAUNDRY OPERATOR WASH ROOM * Telephone Encounter - Raiza John RN [...] advise. Therese Paz LPN documented in this encounterPremier [facility]05-17-2024 Telephone encounter Note * Telephone Encounter - Dena Bazan APRN.CNP - 12/20/2023 4:31 PM EDT Order for iron ferrous sulfate sent to pharmacy. Recheck labs in 3 mos, order placed. Also, called to ask why PSG ordered for [facility]--please tell her we did send order to [facility]. The order automatically goes to [facility] (we should have cancelled that). Dena Bazan APRN.ESTELLA [facility]05-17-2024 Telephone encounter Note* Telephone Encounter - Raiza John RN - 12/20/2023 3:05 PM EDT Spouse (Eli) returns call and provider message reviewed. Eli reports that patient is taking a MVI. She is requesting that the iron order be sent to [facility]. Pended. Raiza John RN [facility]05-17-2024 Telephone encounter Note* Telephone Encounter - Eliana Grigsby LPN - 12/20/2023 1:55 PM EDT TC to pt with no answer, left VM to return call. Eliana Grigsby LPN [facility]05-16-2024 Telephone encounter Note* Telephone Encounter - Jessie [...] by mouth twice daily Jessie Harmon APRN.ESTELLA [facility]05-16-2024 Miscellaneous Notes* Telephone Encounter - Jessie Harmon [...] tablet by mouth twice daily Jessie Harmon APRN.LAUNDRY OPERATOR WASH ROOM documented in this encounterPremier Health [facility]05-15-2024 Telephone encounter Note * Telephone Encounter - [...] give IV iron to treat the RLS. [facility]05-15-2024 Telephone encounter Note* Telephone Encounter - Therese Paz LPN - 12/18/2023 12:29 PM EDT calling for lab results. Please advise. Therese Paz LPN [facility]05-14-2024 Telephone encounter Note* Telephone Encounter - Raiza John RN - 12/17/2023 10:17 AM EDT Spouse Eli calls to question why [facility] called to schedule Afshin's polysomnogram when it is supposed to be completed at [facility]. Faxed orders to [facility] Sleep Lab in case they weren't received previously. Eli marinelli should hear from [facility] and will follow up with [facility] for scheduling. Raiza John RN [facility]05-14-2024 Miscellaneous Notes* Telephone Encounter - Raiza John RN - 12/17/2023 10:17 AM EDT Spouse Eli calls to question why [facility] called to schedule Afshin's polysomnogram when it is supposed to be completed at [facility]. Faxed orders to [facility] Sleep Lab in case they weren't received previously. Eli marinelli should hear from [facility] and will follow up with [facility] for scheduling. Raiza John RN documented in this encounterPrem[facility] Health [facility]05-13-2024 History of Present illness Narrative* Dena Bazan APRN.LAUNDRY OPERATOR WASH ROOM - 12/16/2023 3:30 PM EDT Images from the original note were not included. [facility] New Patient Evaluation PATIENT [...] multi vessel COLONOSCOPY SCREENING 04/10/2023 EGD W/O [facility] SPEC VARICIES INJ 04/11/2023 EGD W/O [facility] SPEC VARICIES INJ 04/10/2023 HEART CATHETERIZATION 09/17/2016 PAST SURGICAL HISTORY OF 2017 Aneurysm and stent surgery related to stroke TRACHEOSTOMY HX ACTIVE PROBLEM LIST Hyperlipidemia Erectile Dysfunction Cervicalgia Chronic Right Shoulder Pain Occlusion of Left Carotid Artery Stroke (Cerebrum) (Hcc) Aneurysm (Hcc) Essential Hypertension Anxiety Chronic Insomnia Right Hemiplegia (Hcc) Bradycardia Dysphasia Coronary Artery Disease Involving [place] Coronary Artery of [place] Heart Without Angina Pectoris Paroxysmal Atrial Fibrillation [...] foot brace for right leg. Send to [email or web address]. Dx: I63.9^Disp: 1 Device^Rfl: 0 COMPOUNDED PRESCRIPTION^EMBER [...] fluticasone (FLONASE) 50 mcg/actuation nasal spray^Use 1 Premium in each nostril twice daily. Rinse mouth [...] Problem Relation Age of Onset Heart Mother OR in her 70s, pacemaker Diabetes Mother Stroke [...] split night study done in 2021 at [facility]--overall DARON is mild per CMS criteria. They are interested in updating the study. We discussed [facility]. - Polysomnogram (PSG) to reevaluate for obstructive sleep apnea. Pt preference is to have it at [facility], accompanies him. If AHI is at least [...] with Gen Neuro Dr Jean Marie Bazan APRN.LAUNDRY OPERATOR WASH ROOM I spent a total of 45 minutes on the date of the service which included preparing to see the patient, [id number] patient care, completing clinical documentation, obtaining and/or reviewing separately obtained history, performing a medically appropriate examination, counseling and educating the pat ient/family/caregiver, and ordering medications, tests, or procedures. documented in this encounterPrem[facility] Health [facility]04-24-2024 Telephone encounter Note * Telephone Encounter - Kimo Adamson MA - 11/27/2023 10:19 AM EDT was notified patient going to respit in January while she is on trip. In appointment for december aware to bring fax number and will fax office note and orders for OT/PT/speech and give printed copies Kimo Adamson MA [facility]04-24-2024 Miscellaneous Notes* Telephone Encounter - Kimo Adamson [...] planned Jaci Arroyo MD documented in this encounterPremier Health [facility]04-23-2024 Telephone encounter Note * Telephone Encounter - Jaci Arroyo MD - 11/26/2023 5:02 PM EDT Please notify patient's that his labs look OK; follow up next month as planned Jaci Arroyo MD [facility]04-19-2024 Miscellaneous Notes* Telephone Encounter - Jaci Arroyo MD - 11/22/2023 10:09 AM EDT OK to refill as ordered Jaci Arroyo MD * Telephone Encounter - Kassandra Okeefe RN - 11/22/2023 9:10 AM EDT Pt's Eli calling in for prescription refill on pt's Lorazepam. (last filled per computer 06/2023 for 30 days but pt has been in a [facility] so did not need the meds). She is requestingto have 90 day supply again with refills. Last OV 09/27/23 Next OV reschedule to 12/30 per 's request. also asking about lab orders. Per epic, pt was to have in Sep prior to that appt which was a 3month f/u. Eli states pt was in the [facility] at that time which is probably why they missed getting the labs done. Lab orders will outdate prior to next appt. New orders pended and aware of new date and that pt needs to be fasting 10-12 hours prior. Call her back only if any problems with above. documented in this encounterPrem[facility]04-02-2024 Miscellaneous Notes* Telephone Encounter - Rachel Buckley MA - 11/05/2023 9:26 AM EDT Call to Eli and notified her that orders have been faxed to [facility] as requested, verbalized understanding. Rachel Buckley MA [...] Speech Therapy. This will be done at [facility] and orders will need to be faxed there. Please advise Eli when this has been done. Therese Paz LPN documented in this encounterPremier Health [facility]03-25-2024 Miscellaneous Notes* Telephone Encounter - Jaci Arroyo [...] you. Alvin Nick LPN. documented in this encounterPrem[facility] Health [facility]03-08-2024 Miscellaneous Notes* Telephone Encounter - Mariano Beckman APRN.CNP - 10/11/2023 3:08 PM EST Noted. Mariano Beckman APRN.ESTELLA * Telephone Encounter - Kassandra Okeefe RN - 10/11/2023 2:00 PM EST Jessie CABRERA from [facility] calling as she was supposed to see pt today for a reevaluation for PT. She has attempted to contact the patient 3 times with no answer. Asking to postpone til next week. Please call her only if this is a problem. documented in this encounterPremier Health [facility]03-01-2024 Miscellaneous Notes* Telephone Encounter - Kassandra Okeefe RN - 10/04/2023 10:39 AM EST Pt's Eli calling and states she is returning a call to the sleep med dept. No note found butpt has an appt on 12/15 at 330 with Dena Bazan. Pt's notified. States she already had that on the calendar but glad for the call. documented in this encounterPremier Health [facility]02-27-2024 History of Present illness Narrative* Deanne Cruz Shar, DO - 10/01/2023 4:10 PM EST Images from the original note were not included. [facility] DEPARTMENT OF VASCULAR SURGERY OUTPATIENT VISIT DATE October 01, 2023 OUTPATIENT VISIT TYPE ESTABLISHED SERVICE DATE: 10/01/2023 SERVICE TIME: 4:10 PM PRIMARY CARE PHYSICIAN: Jaci Arroyo MD HISTORY OF PRESENT ILLNESS: Mr. eZe is a 68 year old male who [...] (obstructive sleep apnea) PVD (peripheral vascular disease) ([facility]) Respiratory failure (HCC) hypoxic-ventilator dependent Stroke (cerebrum) [...] fluticasone (FLONASE) 50 mcg/actuation nasal spray^Use 1 Premium in each nostril twice daily. Rinse mouth [...] foot brace for right leg. Send to [email or web address]. Dx: I63.9^Disp: 1 Device^Rfl: 0 COMPOUNDED PRESCRIPTION^EMBER [...] 2023 TIME: 4:10 PM documented in this encounterPremier Health [facility]02-27-2024 Miscellaneous Notes* Telephone Encounter - Christina Ozuna [...] there. checking into a respite care at [facility] (not sure what the new name is). reports needs a break. Before doing this she wants to try a change in medication first. reports pt was just seen on 09-27-23. Please advise . Therese Paz LPN documented in this encounterPremier Health [facility]02-23-2024 History of Present illness Narrative* Jaci Arroyo MD - 09/27/2023 2:20 PM EST Chief Complaint Patient presents with: Follow Up HPI Afshin Zee is a 68 year old male who presents here today for shelter follow up. Here with , Eli. [facility]. He was there temporarily while Eli [...] surgery and therapy. Surgery was completed by [facility]. He is out of the boot now and is just using a brace again.Still walking with a cane. No more falls since. He was getting OT and PT while in the [facility].Would not do ST because he was only [...] multi vessel COLONOSCOPY SCREENING 04/10/2023 EGD W/O [facility] SPEC VARICIES INJ 04/11/2023 EGD W/O [facility] SPEC VARICIES INJ 04/10/2023 HEART CATHETERIZATION 09/17/2016 PAST SURGICAL HISTORY OF 2017 Aneurysm and stent surgery related to stroke TRACHEOSTOMY HX Family History FAMILY HISTORY Problem Relation Age of Onset Heart Mother OR in her 70s, pacemaker Diabetes Mother Stroke [...] (FLONASE) 50 mcg/actuation nasal spray Use 1 Premium in each nostril twice daily. Rinse mouth [...] foot brace for right leg. Send to [email or web address]. Dx: I63.9 COMPOUNDED PRESCRIPTION EMBER WALKER DX [...] 27.70 kg/(m^2) 6. Coronary artery disease involving [place] coronary artery of [place] heart without angina pectoris- ICD9: 414.01, ICD10: [...] Histories independently gathered by the clinical technical sales support manager and the remaining scribed note accurately describes [...] PM. Monica Cruz Ma documented in this encounterPremier Health [facility]02-20-2024 Miscellaneous Notes* Telephone Encounter - Raiza John RN - 09/24/2023 12:02 PM EST (Eli) calls back and request below request be disregarded. [facility] doesn't have PT/OT currently that comes to the area. Patient to continue with [facility] PT, OT, ST for now. Raiza John RN * Telephone Encounter - Dimple Agustin LPN - 09/24/2023 11:20 AM EST Pt's is calling to request orders for PT, OT, and Speech to go to [facility]. Pt currently isgoing to [facility] for OT and PT but said they can't do Speech because orders from [place] were for rehab for broken ankle. reports pt had [facility] before and they worked really well with pt. spoke to Shannon in the intake dept with [facility] and was advised it should not be a problem tohave all three. Speech due to stroke. is asking for orders to go to [facility], Attn: Shannon, fax: [phone]. reports pt has an appt with Ortho surgeon on 09/26 and appt with pcp 09/27. Dimple Agustin LPN documented in this encounterPremier Health [facility]02-16-2024 Miscellaneous Notes* Telephone Encounter - Kimo Mcgrath [...] refer to Sleep Medicine. documented in this encounterPremier Health [facility]02-15-2024 Miscellaneous Notes* Telephone Encounter - Jaci Arroyo MD - 09/19/2023 3:07 PM EST Noted aJci Arroyo MD * Telephone Encounter - Jayde Laughlin RN - 09/19/2023 1:36 PM EST Valentine VALLECILLO calling from [facility] to report plan of care for patient and occupational therapy will visit patient 1 times a week for 1 week (for evaluation) and 1 times a week for 1 week for week of . This was a delay of care due to waiting on insurance No call back needed Jayde Laughlin RN documented in this encounterPremier Health [facility]02-12-2024 Miscellaneous Notes* Telephone Encounter - Monica Cruz Ma - 09/16/2023 3:58 PM EST [facility] notified. Monica Cruz Ma * Telephone Encounter - Jaci Arroyo MD - 09/16/2023 3:54 PM EST Noted; he has been on both of these medications and his QT has been OK, so OK to stay on them. Jaci Arroyo MD * Telephone Encounter - Dixie Naranjo RN - 09/16/2023 3:27 PM EST Kylie, nurse @ [facility] calling to let PCP know she was reconciling patient medications and found flag for possible drug/drug interaction between Escitalopram and Amiodarone. She said the detail of the possible interaction was not stated in the computer generated flag. Dixie Naranjo RN documented in this encounterPremier Health [facility]02-12-2024 Instructions* Patient Instructions* Kimo Mcgrath MD - 09/16/2023 2:36 PM EST Repeat oximetry on 4 Liters at night documented in this encounterPremier Health [facility]02-12-2024 History of Present illness Narrative* Kimo Mcgrath MD - 09/16/2023 2:15 PM EST Images from the original note were not included. . [facility] Note Patient name: Afshin Zee PCP: Jaci [...] needed albuterol. Lung cancer screening done at [facility] 05/22/2023 shows emphysema, focal areas of scarring, [...] Imaging / Diagnostic Studies: Lung Cancer screening [facility] 05/2023 reviewed which shows emphysema and RUL [...] Respiratory failure (HCC) hypoxic-ventilator dependent Stroke (cerebrum) ([facility]) Tobacco abuse ALLERGIES Allergen Reactions Doxycycline GI [...] fluticasone (FLONASE) 50 mcg/actuation nasal spray^Use 1 Premium in each nostril twice daily. Rinse mouth [...] foot brace for right leg. Send to [email or web address]. Dx: I63.9^Disp: 1 Device^Rfl: 0 COMPOUNDED PRESCRIPTION^EMBER [...] Problem Relation Age of Onset Heart Mother OR in her 70s, pacemaker Diabetes Mother Stroke [...] from tobacco 2. Former cigarette smoker -Former 36-gusg-iptk smoker with sequelae of emphysema -Continued abstinence -Continued surveillance for lung cancer. Due for next CT at [facility] May 2024 3. Nocturnal hypoxemia -Patient intolerant of CPAP -Patient want to wear nocturnal oxygen but is compliant with usage -Repeat overnight oximetry on 4 L -Denies daytime fatigue Kimo Mcgrath MD [facility] documented in this encounterPremier Health [facility]02-09-2024 Miscellaneous Notes* Telephone Encounter - Jaci Arroyo MD - 09/13/2023 3:03 PM EST Noted Jaci Arroyo MD * Telephone Encounter - Milan Brunson RN - 09/13/2023 12:29 PM EST Cathy Siu- [facility]- phoned to let pcp know, pt was discharged from [facility] to home on 09-10-23. documented in this encounterPremier Health [facility]02-06-2024 Miscellaneous Notes* Telephone Encounter - Monica Cruz Ma - 09/10/2023 9:18 AM EST Jessie notified. Monica Cruz Ma * Telephone Encounter - Jaci Arroyo MD - 09/09/2023 7:30 PM EST I agree and am willing to follow for home health orders Jaci Arroyo MD * Telephone Encounter - Dixie Naranjo RN - 09/09/2023 3:21 PM EST Jessie [facility] Intake calling to let PCP know patient is being discharged from [facility] today post anklesurgery rehabilitation. He has home health orders for nursing, PT/OT. Asking if PCP agrees and willing to follow home health orders? Her ph # [phone]. Dixie Naranjo RN documented in this encounterPremier Health [facility]01-05-2024 Discharge summary Author Davin Kim [facility] August 09, 2023 3:52pm Note Date/Time August 09, 2023 3: 52pm [facility] Medical Records Department [address] [place] [address] Transfer to [facility] MR#: [id number] Acct: [id number] Name: AFSHIN ZEE Rep #:[id number] : 1955 68 From: Davin Kim MD PCP: Dr. Jaci Arroyo MD Status:JOSEFINA DENNEY Certification of patient admission REQUIRED AT TIME OF ADMISSION. I CERTIFY THAT POST-HOSPITAL F SERVICES ARE REQUIRED TO BE GIVEN ON AN IN-PATIENT BASIS BECAUSE OF THE ABOVE NAMED PATIENT'S NEED FOR GROUP HOME CARE ON A CONTINUING BASIS FOR THE CONDITION(S) FOR WHICH HE/SHE WAS RECEIVING IN-PATIENT HOSPITAL SERVICES PRIOR TO HIS/HER TRANSFER TO THE [facility]. 08/09/23 1552<Electronically signed by Davin Kim MD> [...] in before D/C Order can be placed): Intermediate Facility 08/09/23 1766 <Electronically signed by Davin Kim MD> Cosigner Signature (if applicable): CC: Dr. Dov Marin DO; Dr. Jaci Arroyo MD; Dr. Felecia Burns MD; Dr. Davin Kim MD ~ [facility] Work Phone: 1(829) 345-124801-05-2024 Discharge summary Author Davin Kim [facility] August 09, 2023 3:25pm Note Date/Time August 09, 2023 3: 25pm [facility] Medical Records Department [address] [place] [address] Discharge Summary 08/09/23 1524 MR#: [id number] Acct: [id number] Name: AFSHIN ZEE Rep #:[id number] : 1955 68 From: Davin Kim MD PCP: Dr. Jaci Arroyo MD Status:AD M [id number] Providers Date of Admission: 08/07/23 Primary Care [...] (1/2 x 10 mg) PO TID 02/05/17 multivitamin,td-rggh-yrmfrasl (Complete Multivitamin tablet) 1 tab PO DAILY [...] in before D/C Order can be placed): Intermediate Facility 08/09/23 7742 <Electronically signed by Davin Kim MD> Cosigner Signature (if applicable): CC: Dr. Jaci Arroyo MD; Dr. Davin Kim MD~ Signed [facility] Work Phone: 1(354) 612-415601-05-2024 Progress note Author Davin Kim [facility] August 09, 2023 1:30pm Note Date/Time August 09, 2023 1: 30pm [facility] Medical Records Department [address] [place] [address] Progress Note - Orthopedic 08/09/23 1329 MR#: [id number] Acct: [id number] Name: AFSHIN ZEE Rep #:[id number] : 1955 68 From: Davin Kim MD PCP: Dr. Jaci Arroyo MD Status:AD M [facility] [id number] Subjective Subjective pod 2 ankle ORIF. patient [...] 2 ankle ORIF. pending placement and mobilization. [facility]. 08/09/23 1330 <Electronically signed by Davin Kim MD> Cosigner Signature (if applicable): CC: ~ Signed [facility] Work Phone: 1(346) 238-266801-04-2024 Progress note Author Dov Marin [facility] August 08, 2023 2:57pm Note Date/Time August 08, 2023 2: 57pm [facility] Medical Records Department [address] [place] [address] Progress Note - Hospitalist 08/08/23 1453 MR#: [id number] Acct: [id number] Name: AFSHIN ZEE Rep #:[id number] : 1955 68 From: Dov Marin DO PCP: Dr. Jaci Arroyo MD Status:AD M [facility] Location: [place] [id number] Subjective Subjective Awake but unable to answer [...] Clarity Clear, Urine pH 5.0, Ur Specific [place] 1.025, Urine Protein 15 H, Urine Glucose [...] at bedside. Charges/Coding Visit Charges Inpatient E&M: 27799 Subs Hosp L1 08/08/23 6477 <Electronically signed by Dov Marin DO> Cosigner Signature (if applicable): CC: ~ Signed [facility] Work Phone: 1(163) 537-955201-04-2024 Progress note Author Davin Kim [facility] August 08, 2023 12:05pm Note Date/Time August 08, 2023 12 :05pm [facility] Medical Records Department [address] [place] [address] Progress Note - Orthopedic 08/08/23 1204 MR#: [id number] Acct: [id number] Name: AFSHIN ZEE Rep #:[id number] : 1955 68 From: Davin Kim MD PCP: Dr. Jaci Arroyo MD Status:AD M [facility] Location: [place] [address] Subjective Subjective patient in pain per nursing [...] 16:56 EST Reading Location ID and State: [address] [place] [address] , Service support , Assessment & Plan Assessment/Plan (1) Ankle fracture: PLAN: Plan for pain rest ice elevate, dc percocet, try scheduled tylenol and prnoxycodone. 08/08/23 1205 <Electronically signed by Davin Kim MD> Cosigner Signature (if applicable): CC: ~ Signed [facility] Work Phone: 1(775) 140-291901-03-2024 Progress note Author Felecia Burns [facility] August 07, 2023 7:46pm Note Date/Time August 07, 2023 7: 46pm [facility] Medical Records Department [address] [place] [address] Progress Note - Hospitalist 08/07/231942 MR#: [id number] Acct: [id number] Name: AFSHIN ZEE Rep #:[id number] : 1955 68 From: Felecia Burns MD PCP: Dr. Jaci Arroyo MD Status:[facility] Location: [place] [address] Reason for Visit Reason for Visit: Diagnoses Displaced bimalleolar fracture of right lower leg, initial encounter for closed fracture (08/07/23) Encounter for other preprocedural examination (08/07/23) Subjective Subjective 68-year-old male with history of atrial fibrillation, expressive aphasia as a result of a previous stroke, CVA, hypertension, CAD s/p CABG, DARON on hs O2 presented to [facility] 08/07/2023 for a right ankle ORIF [...] pectoris: QUALIFIERS: Coronary Disease-Associated Artery/Lesion type: nativeartery [place] vs. transplanted heart: [place] heart Qualified Code(s): I25.10 -Atherosclerotic heart disease of [place] coronary artery without angina pectoris (3) Carotid [...] documentation, 40Minutes Charges/Coding Visit Charges Inpatient E&M: 89500 Subs Hosp L2 08/07/231945 <Electronically signed by Felecia Burns MD> Cosigner Signature (if applicable): CC: ~ Signed [facility] Work Phone: 1(918) 429-979401-03-2024 History and physical note Author Davin Kim [facility] August 07, 2023 11:25am Note Date/Time August 07, 2023 11 :25am [facility] Medical Records Department [address] [place] [address] History & Physical Exam 08/07/23 1124 MR#: [id number] Acct: [id number] Name: AFSHIN ZEE Rep #:[id number] : 1955 68 From: Davin Kim MD PCP: Dr. Jaci Arroyo MD Status:RE G [facility] Location: [place] [address] HPI - General HPI Narrative AFSHIN ZEE, is a 68 M who presents for open reduction internal fixation right ankle. no changes to h and p. right ankle marked, mild-mod swelling. ok to proceed. rab and post op plan discussed to be admitted as patient has baseline poor function and weakness dt stroke. no further questions. MR#: [id number] Acct: [id number] Name: AFSHIN ZEE Rep #: [id number] : 1955 Provider: Dr. Davin Kim MD Age/Sex: 67/M Location: [facility] Status: Signed Intake Vital Signs 05/29/2306:07 Height [...] mg) PO TID 02/05/17 [Rx Confirmed 07/26/23] multivitamin,rm-kssk-izaeobsj (Complete Multivitamin tablet) 1 tab PO DAILY [...] puff inhalation DAILY 05/29/23 [History Confirmed 07/26/23] [facility] Medical History (Updated 07/26/23 @ 15:17 by Davin Kim MD) Anemia Aphasia as late effect of stroke Atherosclerosis of coronary artery without angina pectoris Bimalleolar fracture of right ankle Carotid artery disease Cerebral arterial aneurysm Chronic atrial fibrillation Confusion Debility Dysphagia History of stroke History of stroke HTN (hypertension) Hyperlipidemia Hypoxia Left acute arterial ischemic stroke, MCA (middle cerebral artery) (10/31/16) 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 tract [...] by me, Dr. Davin Kim MD 07/26/23 8100. Part of today?s visit was documented by [...] with his who is his power of cash clerk. Patient is able to say yes and thank you. The patient had a fall at home twisted the ankle. Was seen and x-rays today at [facility].right LE weakness at baseline. Ortho Exam General [...] shift. no report, these on disc from [facility]. Coding Level of Care Code Off vis,new,level 4 Diagnoses Bimalleolar fracture of right ankle S82.841A Assessment and Plan Assessment and Plan (1) Bimalleolar fracture of right ankle: Status: Acute Plan: 67 m R ankle # bimalleolar... Patient is here with their power of cash clerk who is deciding the healthcare decisions for [...] bleeding and other risks. Patient's power of cash clerk would like to go ahead with open reduction internal fixation right ankle. Booked and consented for the surgery today we will arrange and sent a message to Lesley in the office with regards to getting cardiology clearance they work at the [facility] will have to stop the patient's Eliquis [...] surgery, and signed the informed consent documentation. [facility] Medical History (Updated 08/02/23 @ 10:53 by [...] ischemic stroke, MCA (middle cerebral artery) (10/31/16) care home current use of amiodarone Lower resp. tract infection Mixed obstructive and restrictive ventilatory defect Respiratory failure Sepsis Smoker Stroke/cerebrovascular accident Wears dentures Wears glasses Home Medications famotidine 20 mg tablet 20 mg PO QHS PRN PRN Gastric Reflux 12/21/16 [History Last Taken 08/15/22] baclofen 10 mg tablet 5 mg (1/2 x 10 mg) PO TID 02/05/17 [Rx Last Taken 08/07/23 09:00] multivitamin,ho-ltak-rtovzoap (Complete Multivitamin tablet) 1 tab PO DAILY [...] Arroyo MD; Dr. Davin Kim MD~ Signed [facility] Work Phone: 1(171) 821-622301-03-2024 Procedure [facility] 07-26-2023 Hospital Discharge instructions Patient Education 07/26/2023 [...] splint gets wet, dry it with a chairman and ceo on a cool setting. You may use bfja-mnu-zquptgh pain medicine to control pain, unless another [...] cast or splint develops cracks or breaks 9327-1313 The [employer]. [address] [place] [address]. All rights reserved. This information is not intended as a substitute for professional medical care. Always follow yourhealthcare professional's instructions. Follow Up Care 07/26/2023 11:34:41 With:DO LISSA MARTINEZ DO Address: [address] [place] [address] [address] [place] [address] When:3-7 days [facility] 12-22-2023 Note Discharge Instructions Thank you for allowing [facility] to assist you with your healthcare needs. [...] ALCARAZ DO When Within 3-7 days Where: [address] [facility] [address] [place] [address] Allergies lisinopril (Lip swelling) azithromycin [...] splint gets wet, dry it with a chairman and ceo on a cool setting. You may use oigq-dji-wnhfbdx pain medicine to control pain, unless another [...] cast or splint develops cracks or breaks 3548-7005 [employer], [employer]. [address] [place] [address], [place] [address]. All rights reserved. This information is not intended as a substitute for professional medical care. Always follow yourhealthcare professional's instructions. Additional Information VACCINATE! IT SAVES LIVES! Members of the community who have not yet received the COVID-19 vaccine and would like to receive it can visit one of [facility] vaccine clinics. There are many vaccine clinic locations within the [facility]. For locations and available times, please visit www.gettheshot.coronavirus.[place].gov/. It is important to note that some COVID mobile vaccine clinics are held outdoors and may be canceled in rainy or stormy conditions. To learn more about pediatric vaccinations (ages 5-11), we invite you to visit the [facility] [employer] [facility] webpage. https://www.[employer]iess.org/pages/6278-Zjmnx-Duzplhknfbu-Grrbsnievg-Qnzfl-Zeq stions.htmlTo learn more about the COVID-19 vaccine, we invite you to visit the CDC website for a list of frequently asked questions. https://www.cdc.gov/coronavirus/2019-ncov/vaccines/faq.html [facility] Patient Portal Access Instructions: Stay connected with your healthcare team and access your personal medical information anytime with the [facility] Patient Portal. If you would like a full copy of your medical records please contact the [facility] Medical Records Department Saturday through Saturday between 8a.m. and 4:30p.m. Please follow the directions below to access the portal: 1.Access the email account you provided upon registration to the hospital.2.Look for an invitation email from [facility].3.Open the email and access the invitation link: Accept Invitation to [facility]4.Fill in the required krueger to create your account. Sign into [email or web address] with your username and password that you [...] you will allow to register on the [facility] Patient Portal for access to your information. You can also access the [facility] Patient Portal on the [employer] rigo. Simply click on Health Records under [employer] and then click on the [employer] logo. HOW TO SAFELY DISPOSE OF PRESCRIPTION [...] Call your local pharmacy or go to http://nprogress.SimpleCrew/8J5Pb4g to find one close to you.3.Make use of household items: Use cat litter or old coffee grounds to dispose medications if other options arenot available. Mix your drugs with these household products, seal them in an airtight container andthrow it into the garbage. Call [facility]: [phone] to be sure your drugs can be [...] that I should contact my do ctor. Patient/Mounter [employer] Signature: Date/Time: Relationship to Patient: Witness Name/Signature: Date/Time: [facility]12-22-2023 Note ORIGINAL EXAMINATION: 6 XRAY VIEWS OF [...] Sign Date: 07/26/2023 12:43:33 PM Ordering Provider: [facility]12-22-2023 Note ORIGINAL EXAMINATION: ONE XRAY VIEW OF THE CMQCVO5907/26/2023 12:28 pm COMPARISON: 03/22/2023 HISTORY: ORDERING SYSTEM [...] Sign Date: 07/26/2023 12:39:59 PM Ordering Provider: [facility]12-22-2023 Note ORIGINAL EXAMINATION: ONE XRAY VIEW OF [...] Sign Date: 07/26/2023 12:37:50 PM Ordering Provider: [facility]12-22-2023 Note ORIGINAL HISTORY: Fall COMPARISON: No TECHNIQUE: [...] Sign Date: 07/26/2023 12:33:14 PM Ordering Provider: [facility]12-22-2023 Note ORIGINAL HISTORY: Fall COMPARISON: 22 March [...] Date: 07/26/2023 12:32:07 PM Ordering Provider: [facility]12-21-2023 Miscellaneous Notes* Telephone Encounter - Kassandra Shearer - 07/25/2023 10:03 AM EST [phone] Afshin Zee called for path results. documented in this encounterPremier [facility]12-18-2023 Miscellaneous Notes* Telephone Encounter - Mariano Beckman [...] you. Therese Paz LPN. documented in this encounterPremier Health [facility]12-11-2023 History of Present illness Narrative* Kendra Emery, PhD - 07/15/2023 4:10 PM EST [facility] Name: Afshin Zee MR#: [id number] Date: 07/15/2023 Time: 1 hour Referred by: [...] again. Kendra Sinclair, Ph.D. documented in this encounterPremier Health [facility]12-11-2023 History of Present illness Narrative* Amada Robert [...] in Department: COLORECTAL SURGERY documented in this encounterPremier Health [facility]12-11-2023 Instructions* Patient Instructions* Rock Batista DO - 07/15/2023 11:36 AM EST PATIENT PREOPERATIVE INSTRUCTIONS Nacho Sandoval MD has scheduled you for your procedure at this surgery center: [facility] Scheduling Office: [phone] --[address] [place] [address]. Please read below carefully for your personalized [...] tab(s) Hold for 2 days as per manager product support instructions atorvastatin (LIPITOR) 40 mg tablet Take [...] or other anticoagulants without consulting with your manager product support or prescribing physician. - Stop Vitamin E, [...] call the Saturday before. Your surgeon s cloth finishing range tender will tell you what time to call the office. - If you have not reached the departmental cloth finishing range tender by 5 P.M., call [phone] after 5 P.M. the day before your surgery. Please be aware that emergency situations arise, which may delay or change your surgical time. If this happens, we will notify you as soon as possible and regret any inconvenience. If you already have an Advance Directive, please fax a copy to [phone] or email to for it to be [...] day. Rock Batista DO documented in this encounterPremier Health [facility]12-11-2023 History and physical note * Rock Batista [...] (Hcc) Bradycardia Dysphasia Coronary Artery Disease Involving [place] Coronary Artery of [place] Heart Without Angina Pectoris Paroxysmal Atrial Fibrillation [...] multi vessel COLONOSCOPY SCREENING 04/10/2023 EGD W/O [facility] SPEC VARICIES INJ 04/11/2023 EGD W/O [facility] SPEC VARICIES INJ 04/10/2023 HEART CATHETERIZATION 09/17/2016 PAST SURGICAL HISTORY OF 2017 Aneurysm and stent surgery related to stroke TRACHEOSTOMY HX FAMILY HISTORY Problem Relation Age of Onset Heart Mother OR in her 70s, pacemaker Diabetes Mother Stroke [...] (FLONASE) 50 mcg/actuation nasal spray Use 1 Premium in each nostril twice daily. Rinse mouth [...] foot brace for right leg. Send to [email or web address]. Dx: I63.9 COMPOUNDED PRESCRIPTION EMBER WALKER DX [...] Shahid with 1st degree AV block. Left [place], Age undetermined inferior OR ECHO 12/20/22 PFT 03/12/2023 : c/w moderate obstruction Assessment/Plan Stroke (cerebrum) (HCC) Stroke 2017 on POD 1 after CABG x5 Residual right hemiparalysis, aphasia and left eye blindness Left Carotid occlusion, left subclavian stent On ASA. Will ask surgical team ASA preferences Coronary artery disease involving [place] coronary artery of [place] heart without angina pectoris CABG x 5 (2017) Seen by cardiology on 07/08/23 Patient is at low and acceptable risk for planned moderate risk procedure. -Stop Eliquis 48 hours prior to your surgery. Resumed as instructed per surgical team Paroxysmal atrial fibrillation (HCC) On Amiodarone and eliquis -Hold eliquis as instructed by manager product support for 48 hours prior to surgery Centrilobular [...] 2023 TIME: 11:00 am documented in this encounterPremier Health [facility]12-07-2023 Miscellaneous Notes* Telephone Encounter - Loida Vazquez [...] advise, Jayde Laughlin RN documented in this encounterPremier Health [facility]12-04-2023 Instructions* Patient Instructions* Robin Johansen MD - 07/08/2023 11:16 AM EST You should stop the Eliquis 48 hours (2 days) prior to your surgery You can resume Eliquis after surgery as instructed my your surgical team documented in this encounterPremier Health [facility]12-04-2023 History of Present illness Narrative* Robin Johansen MD - 07/08/2023 11:00 AM EST Images from the original note were not included. [facility] SECTION OF REGIONAL CARDIOLOGY Cardiology ([facility]) [address] [facility] [id number] OUTPATIENT VISIT DATE 06/08/2023 PRIMARY CARE PHYSICIAN: Jaci Arroyo [address] [place] [address] HISTORY OF PRESENT ILLNESS: Mr. 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) Respiratory failure (HCC) hypoxic-ventilator dependent Stroke (cerebrum) (HCC) Tobacco abuse PAST SURGICAL HISTORY Procedure Laterality Date CABG CONSULT 10/30/2016 multi vessel COLONOSCOPY SCREENING 04/10/2023 EGD W/O [facility] SPEC VARICIES INJ 04/11/2023 EGD W/O [facility] SPEC VARICIES INJ 04/10/2023 HEART CATHETERIZATION 09/17/2016 [...] Problem Relation Age of Onset Heart Mother OR in her 70s, pacemaker Diabetes Mother Stroke [...] fluticasone (FLONASE) 50 mcg/actuation nasal spray^Use 1 Premium in each nostril twice daily. Rinse mouth [...] foot brace for right leg. Send to [email or web address]. Dx: I63.9^Disp: 1 Device^Rfl: 0 COMPOUNDED PRESCRIPTION^EMBER [...] prior CC echocardiographic exam for comparison. Echocardiogram [facility] 12/16/2020: Left ventricular systolic function is normal [...] AND RECOMMENDATIONS: 1. Coronary artery disease involving [place] coronary artery of [place] heart without angina pectoris- ICD9: 414.01, ICD10: [...] above, Robin Johansen MD documented in this encounterPremier Health [facility]11-28-2023 Miscellaneous Notes* Telephone Encounter - Meka Mireles [...] hear from someone today. documented in this encounterPremier Health [facility]11-27-2023 Miscellaneous Notes* Telephone Encounter - Kassandra Shearer - 07/01/2023 8:40 AM EST called for an update from message taken 06/26, RE: cardiac issue documented in this encounterPremier Health [facility]11-22-2023 Miscellaneous Notes* Telephone Encounter - Benitashannan Shahzad Kassandra - 06/26/2023 9:23 AM EST called about cardiac clearance. There is a conversation in [facility] and message was routed to Dr. Sandoval and Dr. Johansen (cardio). wants to make certain he is cleared for surgery and if patientneeds bridged prior to surgery. She asked for a call back when this is resolved. documented in this encounterPremier Health [facility]11-22-2023 Miscellaneous Notes* Telephone Encounter - Rody Main [...] nurse. Please reach out to her at [phone]. * Telephone Encounter - Lesley Hammond, DIANE - 06/26/2023 8:30 AM EST Called and spoke with Advised of preop appts starting at 0830 am on preop day Discussed that she needs to reach out to manager product support to discuss clearance preop and also eliquis [...] son is coming all the way from [place]. I did say he has 6 preop appts on 07/15 documented in this encounterPremier Health [facility]11-16-2023 Miscellaneous Notes* Telephone Encounter - Rody Main [...] future. Review and advise. documented in this encounterPremier Health [facility]11-15-2023 History and physical note * Nacho Sandoval [...] communicate. Afshin is currently undergoing rehab at [facility]. Afshin is here today for a surgical [...] multi vessel COLONOSCOPY SCREENING 04/10/2023 EGD W/O [facility] SPEC VARICIES INJ 04/11/2023 EGD W/[facility] SPEC VARICIES INJ 04/10/2023 HEART CATHETERIZATION 09/17/2016 [...] (FLONASE) 50 mcg/actuation nasal spray Use 1 Premium in each nostril twice daily. Rinse mouth [...] foot brace for right leg. Send to [email or web address]. Dx: I63.9 1 Device 0 COMPOUNDED PRESCRIPTION [...] injection (DEFINITY) INTRAVENOUS DIRECTED PRN Anushka Thomas, NEW GRAD RN.LAUNDRY OPERATOR WASH ROOM sodium chloride 0.9 % (flush) 10 mL (BD POSIFLUSH) 10 mL INTRAVENOUS DIRECTED PRN Anushka Thomas, NEW GRAD RN.LAUNDRY OPERATOR WASH ROOM ALLERGIES Allergen Reactions Doxycycline GI Upset GI [...] closed Resting tone: NORMAL Squeeze tone: NORMAL Stock Broker Supervisor present: Yes Flexible sigmoidoscopy: Procedure: The patient [...] of treatment plan: moderate documented in this encounterPremier Health [facility]11-14-2023 History of Present illness Narrative* Deanne Cruz, - 06/18/2023 3:09 PM EST Images from the original note were not included. [facility] DEPARTMENT OF VASCULAR SURGERY OUTPATIENT VISIT DATE June 18, 2023 OUTPATIENT VISIT TYPE CONSULTATION SERVICE DATE: 06/18/2023 SERVICE TIME: 3:10 PM PRIMARY CARE PHYSICIAN: Jaci Arroyo MD REFERRING PROVIDER: Jaci Arroyo [address] [facility] [address] Consult requested for an opinion regarding the [...] after his stroke. He was followed by [facility] vascular however would like to remain closer [...] Problem Relation Age of Onset Heart Mother OR in her 70s, pacemaker Diabetes Mother Stroke [...] fluticasone (FLONASE) 50 mcg/actuation nasal spray^Use 1 Premium in each nostril twice daily. Rinse mouth [...] foot brace for right leg. Send to [email or web address]. Dx: I63.9^Disp: 1 Device^Rfl: 0 COMPOUNDED PRESCRIPTION^EMBER [...] 2023 TIME: 3:10 PM documented in this encounterPremier Health [facility]11-08-2023 History of Present illness Narrative* Ricardo Irizarry [...] 12, 2023 2:53 PM documented in this encounterPremier Health [facility]11-08-2023 History of Present illness Narrative* Kia Gandara [...] 2023 TIME: 4:11 PM documented in this encounterPremier Health [facility]11-07-2023 Miscellaneous Notes* Telephone Encounter - JIMI Casas Laurie - 06/11/2023 4:13 PM EST Taken care of in separate encounter. Therese Casas MA * Telephone Encounter - JIMI Casas Laurie - 05/29/2023 3:44 PM EDT Received fax of 05/29/2023 visit with Soraya Pate NP from [facility]. Recent Low dose CT lung pulled from [facility] dated 05/22/2023. At desk for review. Please review and advise. Therese Casas MA documented in this encounterPremier Health Miami [facility]11-07-2023 History of Present illness Narrative* Jaci Arroyo MD - 06/11/2023 3:00 PM EST Chief Complaint Patient presents with: F/U 3 Month HPI Afshin Zee is a 67 year old male who presents here today for 3 month follow up. Here with his , Eli. Went to [facility] last month. states that pt [...] Pt has f/u with Dr. Sandoval at [facility] for anal mass. Completing imaging prior to appt for him to review. COPD: Follows with Dr. Kimo Mcgrath [facility]. Uses Stioloto Respimat inhaler, nebulizer tx prn. Afib/HTN/CAD/Lipid - Checking BP at home, states this is doing well. Denies any chest pain, sob or dizziness. Following with Dr. Johansen, [facility], taking Eliquis 5 mg BID, Norvasc 10 [...] bothersome. Is getting a hand brace through [employer]. Moods/JESS: Taking Ativan 0.5 mg, 1-2 pills [...] multi vessel COLONOSCOPY SCREENING 04/10/2023 EGD [facility] SPEC VARICIES INJ 04/11/2023 EGD [facility] SPEC VARICIES INJ 04/10/2023 HEART CATHETERIZATION 09/17/2016 TRACHEOSTOMY HX Family History FAMILY HISTORY Problem Relation Age of Onset Heart Mother OR in her 70s, pacemaker Diabetes Mother Stroke [...] (FLONASE) 50 mcg/actuation nasal spray Use 1 Premium in each nostril twice daily. Rinse mouth [...] foot brace for right leg. Send to [email or web address]. Dx: I63.9 COMPOUNDED PRESCRIPTION EMBER WALKER DX [...] 06/06/2023 1.94 Monocytes % 06/06/2023 9.9 Abs [place] 06/06/2023 1.23 (H) Eosinophils % 06/06/2023 6.9 [...] Results Only on 05/15/2023 Component Date Value Launch Engineer 05/15/2023 Value:Provider WALKER your patient AFSHIN ZEE has been assigned their Digna program. The date to complete this order is 06-29-2023 The Digna program is: PATIENT SAFETY AND FALL PREVENTION The patient access code to view the Digna program is: [id number] To view the Digna program go to: [email or web address] [employer] Appointment on 05/09/2023 Component Date Value Protein, [...] 05/09/2023 1.59 Monocytes % 05/09/2023 7.9 Abs [place] 05/09/2023 0.76 Eosinophils % 05/09/2023 10.2 Abs [...] 04/19/2023 1.55 Monocytes % 04/19/2023 9.8 Abs [place] 04/19/2023 1.02 (H) Eosinophils % 04/19/2023 5.0 [...] - Stable 9. Coronary artery disease involving [place] coronary artery of [place] heart without angina pectoris- ICD9: 414.01, ICD10: [...] Histories independently gathered by the clinical technical sales support manager and the remaining scribed note accurately describes [...] PM. Rachel Buckley Ma documented in this encounterPremier Health Miami [facility]11-03-2023 Miscellaneous Notes* Telephone Encounter - Loida Vazquez LPN - 06/07/2023 1:50 PM EDT Patient Eli returned call and went over results, notes from Mariano Beckman [facility] with understanding. * Telephone Encounter - Therese Paz LPN - 06/07/2023 1:16 PM EDT Left a message for to call back. Therese Paz LPN * Telephone Encounter - Mariano Beckman APRN.CNP - 06/07/2023 7:42 AM EDT Please let the patient know that his blood counts have improved. He is less anemic at this point. Iwould continue with upcoming visit with Dr. Arroyo to discuss further plan. Mariano Beckman APRN.CNP documented in this encounterPremier Health Miami [facility]10-26-2023 Miscellaneous Notes* Telephone Encounter - Dixie Naranjo [...] of breath, but I would lotexpect any prison consequences. Jaci Arroyo MD * Telephone Encounter [...] Patient and plan to stay overnight in [place] this Saturday. states pt wears 4 liters of oxygen every night. No oxygen during day. states she does not feel comfortable travelingwith pt's oxygen tanks or with his electronic concentrator (too big and heavy) and asking if pt would be okay not wearing any oxygen Saturday night, for one night? Please advise . Thank you. documented in this encounterPremier Health Miami [facility]10-24-2023 Miscellaneous Notes* Telephone Encounter - Gaye Rowley RN - 05/28/2023 10:15 AM EDT Mri scheduled with Pt .Gaye Rowley RN documented in this encounterPremier Health Miami [facility] South10-24-2023 Miscellaneous Notes* Telephone Encounter - Deanne Neville [...] Patient and plan to stay overnight in [place] this Saturday. states pt wears 4 liters of oxygen every night. No oxygen during day. states she does not feel comfortable travelingwith pt's oxygen tanks or with his electronic concentrator (too big and heavy) and asking if pt would be okay not wearing any oxygen Saturday night, for one night? Please advise . Meka Warner MA documented in this encounterPremier Health Miami [facility]10-17-2023 History of Present illness Narrative* Jorge Cardoso MD - 05/21/2023 3:45 PM EDT FOLLOW UP VISIT - ENDOSCOPY NAME: Afshin [facility] NO.: [id number] DATE OF SERVICE: 05/21/2023 : 1955 REFERRING [...] The patient is currently undergoing rehab at [facility]. He was found to have a significant of blood in his stool. The patient presented to [facility] emergency department on March 21, 2023. [...] hemorrhoids. The patient is waswith him at [facility] and went to give him a shower and noted bright red blood in the bathroom. Hemoglobin apparently at [facility] was checked 2 days previously and was [...] needed. Jorge Cardoso MD documented in this encounterPremier Health Miami [facility]10-10-2023 History of Present illness Narrative* Bowen Hernandez [...] Anemia Aneurysm (HCC) Anxiety state Atrial fibrillation ([facility]) 11/2016 Balanitis CAD (coronary artery disease) Carotid stenosis COPD (chronic obstructive pulmonary disease) ([facility]) Dysphasia Emphysema lung ([facility]) History of blood transfusion 03/2023 Hypertension Hypoxia 03/2023 DARON (obstructive sleep apnea) PVD (peripheral vascular disease) ([facility]) Respiratory failure ([facility]) hypoxic-ventilator dependent Stroke (cerebrum) ([facility]) Tobacco abuse Current Outpatient Medications Medication Sig [...] foot brace for right leg. Send to [email or web address]. Dx: I63.9 Diaper,Brief, Adult,Disposable (DEPEND REAL FIT [...] (FLONASE) 50 mcg/actuation nasal spray Use 1 Premium in each nostril twice daily. Rinse mouth [...] CABG CONSULT 10/30/2016 multi vessel EGD [facility] SPEC VARICIES INJ 04/11/2023 HEART CATHETERIZATION 09/17/2016 TRACHEOSTOMY HX FAMILY HISTORY Problem Relation Age of Onset Heart Mother OR in her 70s, pacemaker Diabetes Mother Stroke [...] months Bowen Hernandez DPM Podiatry [address] [facility] [address] Dept: [phone] Dept * Isabel Dill LPN - 05/14/2023 3:09 PM EDT AMB ROOMING INTAKE FLOWSHEET DATA Risk Screening Do you have concerns about personal safety or safety in the home?: No Patient presents with: Left Foot - Established Patient, nail care Right Foot - Established Patient, nail care Isabel Dill LPN documented in this encounterPremier Health Miami Valley Hospital South10-09-2023 Miscellaneous Notes* Telephone Encounter - Kia Waters LPN - 05/13/2023 3:05 PM EDT Eli called. Verified name and date of . Eli aware of results/orders. Verbalized unserstanding but states she is not waiting until next summer for CT to be done. Eli states that she is going to take her to [facility] now instead of waiting until February [address] Dr. Doug Mcgrath and to follow up with Dr. Doug Mcgrath then on May 29, [address]. Concerned about his lungs. Eli will call [facility] to let Dr. Mcgrath know to check [...] for liquid albuterol Former cigarette smoker -Former [id number] smoker having quit in 2015 with sequelae [...] a CT chest done recently. Looking at [facility], there is not an order or recent study that I can see from [facility]. 05/07/[address] chest WO contrast at [facility]. She has questions and she would like to speak directly to Dr. Mcgrath's nurse. GLENNY 03/12/2023. Therese Casas MA documented in this encounterPremier Health Miami [facility] Hospital South10-09-2023 History of Present illness Narrative* Meka Lindsey [...] outside records noted above. Meka Lindsey PA-C [facility] Respiratory Norris documented in this encounterPremier Health Miami [facility]10-05-2023 Miscellaneous Notes* Telephone Encounter - Amaya Kessler [...] his Eliquis for 3 days. I said [facility] had not responded back since the labs have come back in. Pts hung up. * Telephone Encounter - Kassandra Tai LPN - 05/09/2023 12:13 PM EDT Patient notified of updates, verbalizes understanding of instructions. Spoke with [facility] She stated to hold Eliquis for 3 [...] to let her know this was done. [phone] * Telephone Encounter - Khris Gutierrez RN - 05/09/2023 9:24 AM EDT Nenita nurse with [facility] called in and reports Pts called [...] a visit this week. documented in this encounterPremier Health Miami Valley Hospital South10-03-2023 Miscellaneous Notes* Telephone Encounter - Rachel Buckley Ma - 05/07/2023 9:26 AM EDT Type of form: DME Orders from [facility]. Resting hand splint and carrot orthotic ofr right hand associated with hemiplegia. Form received via fax When form is completed, Fax form to [phone] Form has been forwarded to Physician Desk: Dr. Cruz Buckley Ma documented in this encounterPremier Health Miami [facility] Hospital [facility]09-18-2023 Miscellaneous Notes* Telephone Encounter - Christina Ozuna [...] his hemoglobin is stable at 9.6. At [place] on April 03 it was 9.0. He [...] Provider: MARIANO BECKMAN APRN.CNP documented in this encounterPremier Health Miami [facility] Hospital South09-15-2023 Instructions* Patient Instructions* Mariano Beckman APRN.CNP - 04/19/2023 12:24 PM EDT Donell Sandoval MD A: [phone] Check Labs Return to see Dr. Arroyo as scheduled. Mariano Beckman APRN.CNP documented in this encounterPremier Health Miami [facility] Hospital South09-15-2023 History of Present illness Narrative* Mariano Beckman APRN.CNP - 04/19/2023 12:00 PM EDT Chief Complaint Patient presents with: ER F/U: [facility] 03/17/23-03/27/23 multiple falls, anemic at 6.5 & +occult stool; D/C to [facility] Afshin Zee is a 67 year old male who presents here today for SNF follow up discharge. Here with . Patient here for ER follow-up/longterm facility follow-up. Patient went to [facility] on March 21 for a [...] On approximate 04/03, hemoglobin was checked at [facility] and was 9.0. Transfer to [facility] for strengthening. Patient was evaluated on April [...] has home health in the form of longterm, PT, OT at home. At this time, [...] scheduled. This note was partly generated using Eventful voice recognition dictation and may contain some misspelled or inaccurate words missed on review. documented in this encounterPremier Health Miami Valley Hospital South09-11-2023 Miscellaneous Notes* Telephone Encounter - Khris Gutierrez RN - 04/15/2023 8:32 AM EDT Kia with [facility] called and is notified of providers message. She voices understanding. Khris Gutierrez RN * Telephone Encounter - Mariano Beckman APRN.CNP - 04/15/2023 8:27 AM EDT Please call Shraddha with [facility] to let her know that Dr. Arroyo's office is okay with the plan and will follow home healthcare orders. Mariano Beckman APRN.LAUNDRY OPERATOR WASH ROOM * Telephone Encounter - Milan Brunson RN - 04/15/2023 8:18 AM EDT asking pcp office to give the verbal order to Shraddha, so that patient can start therapy in the home lucía. See message below. * Telephone Encounter - Raiza John RN - 04/12/2023 4:49 PM EDT Kia with [facility] calls to ask if provider with follow orders for SN, PT, and OT following discharge from [facility]. Kia request call back at [phone] with provider response. Raiza John RN documented in this encounterPremier Health Miami [facility]09-07-2023 Miscellaneous Notes* Telephone Encounter - Jorge Cardoso MD - 04/11/2023 7:27 PM EDT FOLLOW UP ENDOSCOPY - RESULTS AND RECOMMENDATIONS [id number] 1955 DATE: April 11, 2023 PRIMARY [...] to the appropriate providers documented in this encounterPremier Health Miami Valley Hospital South09-06-2023 Nurse Note* Kylie Galvez RN - 04/10/2023 3:04 PM EDT Call made to [facility] to give report. Gave report to RN. Also sent copy of instructions home with to give to [facility]. Pt being prepared for home. documented in this encounterPremier Health Miami Valley [facility]09-06-2023 History and physical note * Jorge Cardoso [...] The patient is currently undergoing rehab at [facility]. He was found to have a significant of blood in his stool. The patient presented to [facility] emergency department on March 21, 2023. [...] hemorrhoids. The patient is waswith him at [facility] and went to give him a shower and noted bright red blood in the bathroom. Hemoglobin apparently at [facility] was checked 2 days previously and was [...] Carotid stenosis COPD (chronic obstructive pulmonary disease) ([facility]) Dysphasia Emphysema lung ([facility]) History of blood transfusion 03/2023 Hypertension Hypoxia 03/2023 DARON (obstructive sleep apnea) PVD (peripheral vascular disease) ([facility]) Respiratory failure (HCC) hypoxic-ventilator dependent Stroke (cerebrum) ([facility]) Tobacco abuse PAST SURGICAL HISTORY PAST SURGICAL [...] (FLONASE) 50 mcg/actuation nasal spray Use 1 Premium in each nostril twice daily. Rinse mouth [...] foot brace for right leg. Send to [email or web address]. Dx: I63.9 COMPOUNDED PRESCRIPTION EMBER WALKER DX [...] Problem Relation Age of Onset Heart Mother OR in her 70s, pacemaker Diabetes Mother Stroke [...] monitored anesthetic care. I have communicated with [facility] and we will plan to perform this procedure on April 10. It is tentatively scheduled for noon. I will have my office notify [facility] of thetime and place to arrange transportation if possible. Otherwise, the patient's is comfortable t ransporting the patient to [facility]. I will place orders for endoscopy and send a prescription for GoLytely for the to pickle cutter in the event that [facility] cannot obtain that medication short notice Saturday. I will attempt to contact [facility] and give them a verbal order for [...] note were not included. HISTORY AND PHYSICAL [facility] 1955 REFERRING PHYSICIAN: Jaci Arroyo MD CHIEF COMPLAINT: Consult (Iron deficency/ anemia) HPI: The patient is a 67 year old male referred for endoscopy. The patient had a previous supravascular accident which makes oral communication difficult and the patient becomes excited when trying to communicate. He is present with his . The patient is currently undergoing rehab at [facility]. He was found to have a significant of blood in his stool. The patient presented to [facility] emergency department on March 21, 2023. [...] hemorrhoids. The patient is waswith him at [facility] and went to give him a shower and noted bright red blood in the bathroom. Hemoglobin apparently at [facility] was checked 2 days previously and was maintained at 9. The patient is being seen by me today at the request of Dr. Jaci Arroyo MD for my opinion and advice regarding rectal bleeding and iron deficiency anemia. PAST MEDICAL HISTORY PAST MEDICAL HISTORY Diagnosis Date Acute cerebral infarction ([facility]) left LEANN (acute kidney injury) ([facility]) Anemia Aneurysm ([facility]) Anxiety state Atrial fibrillation ([facility]) 11/2016 Balanitis CAD (coronary artery disease) Carotid stenosis COPD (chronic obstructive pulmonary disease) ([facility]) Dysphasia Emphysema lung ([facility]) History of blood transfusion 03/2023 Hypertension Hypoxia 03/2023 DARON (obstructive sleep apnea) PVD (peripheral vascular disease) ([facility]) Respiratory failure ([facility]) hypoxic-ventilator dependent Stroke (cerebrum) ([facility]) Tobacco abuse PAST SURGICAL HISTORY PAST SURGICAL [...] (FLONASE) 50 mcg/actuation nasal spray Use 1 Premium in each nostril twice daily. Rinse mouth [...] foot brace for right leg. Send to [email or web address]. Dx: I63.9 COMPOUNDED PRESCRIPTION EMBER WALKER DX [...] Problem Relation Age of Onset Heart Mother OR in her 70s, pacemaker Diabetes Mother Stroke Father other (AAA) Father other (CAD) Brother Hypertension Brother REVIEW OF SYMPTOMS: The review of systems data was entered by the nurse and reviewed by ma Nursing Notes: Mayela Mcgrath LPN 04/05/2023 1:54 [...] monitored anesthetic care. I have communicated with [facility] and we will plan to perform this procedure on April 10. It is tentatively scheduled for noon. I will have my office notify Elliot Jiang of thetime and place to arrange transportation if possible. Otherwise, the patient's is comfortable t ransporting the patient to [facility]. I will place orders for endoscopy and send a prescription for GoLytely for the to pickle cutter [facility] the [facility] short notice Saturday. I will attempt to contact [facility] and give them a verbal order for [...] completed. Jorge Cardoso MD documented in this encounterPremier Health Miami [facility] Hospital South09-03-2023 Instructions* Patient Instructions* Jorge Cardoso MD - [...] If you do not have a responsible meals on wheels driver (family member or friend) with you [...] until midnight. 2 07/2019 documented in this encounterPremier Health Miami Valley Hospital [facility]09-03-2023 History of Present illness Narrative* Jorge Cardoso MD - 04/07/2023 10:11 AM EDT HISTORY AND PHYSICAL [facility] 1955 REFERRING PHYSICIAN: Jaci Arroyo MD CHIEF COMPLAINT: Consult (Iron deficency/ anemia) HPI: The patient is a 67 year old male referred for endoscopy. The patient had a previous supravascular accident which makes oral communication difficult and the patient becomes excited when trying to communicate. He is present with his . The patient is currently undergoing rehab at [facility]. He was found to have a significant of blood in his stool. The patient presented to [facility] emergency department on March 21, 2023. [...] hemorrhoids. The patient is waswith him at [facility] and went to give him a shower and noted bright red blood in the bathroom. Hemoglobin apparently at [facility] was checked 2 days previously and was maintained at 9. The patient is being seen by me today at the request of Dr. Jaci Arroyo MD for my opinion and advice regarding rectal bleeding and iron deficiency anemia. PAST MEDICAL HISTORY Diagnosis Date Acute cerebral infarction ([facility]) left LEANN (acute kidney injury) ([facility]) Anemia Aneurysm ([facility]) Anxiety state Atrial fibrillation ([facility]) 11/2016 Balanitis CAD (coronary artery disease) Carotid stenosis COPD (chronic obstructive pulmonary disease) ([facility]) Dysphasia Emphysema lung ([facility]) History of blood transfusion 03/2023 Hypertension Hypoxia 03/2023 DARON (obstructive sleep apnea) PVD (peripheral vascular disease) ([facility]) Respiratory failure ([facility]) hypoxic-ventilator dependent Stroke (cerebrum) ([facility]) Tobacco abuse PAST SURGICAL HISTORY Procedure Laterality [...] (FLONASE) 50 mcg/actuation nasal spray Use 1 Premium in each nostril twice daily. Rinse mouth [...] foot brace for right leg. Send to [email or web address]. Dx: I63.9 COMPOUNDED PRESCRIPTION EMBER WALKER DX [...] Problem Relation Age of Onset Heart Mother OR in her 70s, pacemaker Diabetes Mother Stroke Father other (AAA) Father other (CAD) Brother Hypertension Brother REVIEW OF SYMPTOMS: The review of systems data was entered by the nurse and reviewed by ma Nursing Notes: Mayela Mcgrath LPN 04/05/2023 1:54 [...] monitored anesthetic care. I have communicated with [facility] and we will plan to perform this procedure on Saturday, April 10. It is tentatively scheduled for noon. I will have my office notify [facility] of thetime and place to arrange transportation if possible. Otherwise, the patient's is comfortable t ransporting the patient to [facility]. I will place orders for endoscopy and send a prescription for GoLytely for the to pickle cutter in the event that [facility] cannot obtain that medication short notice Saturday. I will attempt to contact [facility] and give them a verbal order for [...] completed. Jorge Cardoso MD documented in this encounterPremier Health Miami [facility]09-01-2023 Miscellaneous Notes* Telephone Encounter - Qian Porter - 04/05/2023 2:59 PM EDT Left VM to schedule OV. YESIKA Annual f/up (May) - PVD; Foot drop, right documented in this encounterPremier Health Miami [facility]09-01-2023 Nurse Note* Mayela McgrathJAVI - 04/05/2023 1:50 [...] prior Mayela Mcgrath LPN documented in this encounterPremier Health Miami [facility] South08-24-2023 Miscellaneous Notes* Telephone Encounter - Monica Cruz Ma - 03/28/2023 4:49 PM EDT Pt notified, transferred to [facility] to set up appt. Monica Cruz Ma * Telephone Encounter - Jaci Arroyo MD - 03/28/2023 3:09 PM EDT OK for Surgery referral for endoscopic evaluation Jaci Arryoo MD * Telephone Encounter - Therese Paz LPN - 03/28/2023 11:51 AM EDT called and she is requesting a referral to GI for EGD. [facility]. Please advise willing to see Dr. Cardoso or any of the surgeons. concerned pt is losing blood somewhere. Therese Paz LPN * Telephone Encounter - Therese Paz LPN - 03/28/2023 11:43 AM EDT FYI: Received call from Cathy Hayes ([phone]) with [facility] that pt was admitted to [facility] late yesterday afternoon 03-27-23. Therese Paz LPN * Telephone Encounter - Rachel Buckley Ma - 03/28/2023 8:01 AM EDT Review FYI below. Rachel Buckley Ma * Telephone Encounter - Jayde Laughlin RN - 03/27/2023 10:09 AM EDT Patient's Eli calls and states that patient was admitted to [facility] on 03/22/2023. When patient had labs done, labs showed that patient's iron and hemoglobin were low. Patient was given 2 units of blood. Patient had CT scan done on brain as well as xray of chest and spine. Patient is to be transferred to [facility] as soon as insurance approves of this. Per patient is going onskilled unit so that patient can be strong enough to come home. If provider has any questions, please give Eli a call back. Jayde Laughlin RN * Telephone Encounter - Amor Avendaño - 03/27/2023 8:26 AM EDT Cathy Siu(direction home) called on behalf of pt, was admitted on 03/22/23 to [facility]. Call back: [phone] For further information Please advise Amor Avendaño documented in this encounterPrem[facility] Miscellaneous Notes* Telephone Encounter - Jaci Arroyo MD - 03/25/2023 6:50 PM EDT OK to refill as ordered Jaci Arroyo MD documented in this encounterPrem[facility]18-2023 Miscellaneous Notes* Telephone Encounter - Jaci Arroyo MD - 03/22/2023 11:20 AM EDT Noted Jaci Arroyo MD * Telephone Encounter - Jayde Laughlin RN - 03/22/2023 9:30 AM EDT Cathy Siu from [facility] calls to report that yesterday during the day patient had fallen and had gone to ER. Patient had CT of head which came back normal. Patient was then sent back home. Patient fell again last night. Squad had came and helped patient off of floor and back to bed. Jayde Laughlin RN documented in this encounterPremier Health [facility]08-17-[facility]23 Hospital Discharge instructions Patient Education 03/21/2023 17:13:45 [...] the ears or bruising around the eyes [id number] [employer]. [address] [place] [address]. All rights reserved. This information is not intended as a substitute for professional medical care. Always follow yourhealthcare professional's instructions. Follow Up Care 03/21/2023 14:56:06 With:JACI ARROYO MD Address: [address] [place] [address]- When:2-4 days [facility] 08-17-2023 Note Discharge Instructions Thank you for allowing [facility] to assist you with your healthcare needs. The following is importantdischarge information regarding your hospital visit. Diagnosis from Today's Visit Fall Fall Head injury What to Do Next Instructions from Your Care Team No qualifying data available. Post Acute Orders No qualifying data available. You Need to Schedule the Following Appointments Follow Up with JACI ARROYO MD When Within 2-4 days Where: [facility] [place], [place] [id number]- Allergies lisinopril (Lip swelling) azithromycin sulfa drug [...] a day Unchanged potassium chloride (Potassium Chloride (Xpd-Qnue-Euy 10) 10 mEq oral tablet, extended release) [...] the ears or bruising around the eyes 8940-5522 [employer]. [address] [place] [address]. All rights reserved. This information is not intended as a substitute for professional medical care. Always follow yourhealthcare professional's instructions. Additional Information VACCINATE! IT SAVES LIVES! Members of the community who have not yet received the COVID-19 vaccine and would like to receive it can visit one of [facility] vaccine clinics. There are many vaccine clinic locations within the [facility]. For locations and available times, please visit [email or web address] It is important to note that some COVID mobile vaccine clinics are held outdoors and may be canceled in rainy or stormy conditions. To learn more about pediatric vaccinations (ages 5-11), we invite you to visit the [facility] webpage. [email or web address] learn more about the COVID-19 vaccine, we invite you to visit the CDC website for a list of frequently asked questions. https://www.cdc.gov/coronavirus/2019-ncov/vaccines/faq.html [facility] Patient Portal Access Instructions: Stay connected with your healthcare team and access your personal medical information anytime with the [facility] Patient Portal. If you would like a full copy of your medical records please contact the [facility] Medical Records Department Saturday through Saturday between 8a.m. and 4:30p.m. Please follow the directions below to access the portal: 1.Access the email account you provided upon registration to the [facility].2.Look for an invitation email from [facility].3.Open the email and access the invitation link: Accept Invitation to [facility]4.Fill in the required krueger to create your account. Sign into [email or web address] with your username and password that you [...] you will allow to register on the [facility] Patient Portal for access to your information. You can also access the [facility] Patient Portal on the [employer]. Simply click on Health Records under [employer] and then click on the Sonny logo. [...] Call your local pharmacy or go to [email or web address] to find one close to you.3.Make use of household items: Use cat litter or old coffee grounds to dispose medications if other options arenot available. Mix your drugs with these household products, seal them in an airtight container andthrow it into the garbage. Call [facility]: [phone] to be sure your drugs can be [...] that I should contact my do ctor. Patient/Mounter [employer] Signature: Date/Time: Relationship to Patient: Witness Name/Signature: Date/Time: [facility]08-17-2023 Note ORIGINAL EXAMINATION: CT OF THE HEAD [...] Sign Date: 03/21/2023 5:15:43 PM Ordering Provider: [facility]08-14-2023 Miscellaneous Notes* Telephone Encounter - Mariano Beckman [...] GLENNY 03/07/23 NOV 06/11/23 documented in this encounterPrem[facility]08-08-2023 Instructions* Patient Instructions* Kimo Mcgrath MD - 03/12/2023 2:20 PM EDT Referral for lung cancer screening a future date. Won't be due until January 2024 documented in this encounterPremier Health [facility]08-08-2023 History of Past illness Narrative* Problem Noted Date Diagnosed Date Resolved Date COPD with exacerbation 03/12/202303/12 Respiratory failure, unspeci fied chronicity, unspecified whether with hypoxia or hypercapnia 03/07/2023 03/12/2023 Last Assessment & Plan: Resolved Tracheostomy status 12/04/2022 02/27/20 23 Bacterial pneumonia 11/17/2022 03/12/20 23 Elevated blood pressure 06/06/201003/05 documented as of this encounter (statuses as of 03/12/2023) [facility]08[facility] History of Past illness Narrative* Problem Noted Date Diagnosed Date Resolved Date COPD with exacerbation 03/12/202303/12 Respiratory failure, unspeci fied chronicity, unspecified whether with hypoxia or hypercapnia 03/07/2023 03/12/2023 Last Assessment & Plan: Resolved Tracheostomy status 12/04/2022 02/27/20 23 Bacterial pneumonia 11/17/2022 03/12/20 23 Elevated blood pressure 06/06/201003/05 documented as of this encounter (statuses as of 03/12/2023) [facility] History of Past illness Narrative* Problem Noted Date Diagnosed Date Resolved Date COPD with exacerbation 03/12/202303/12 Respiratory failure, unspeci fied chronicity, unspecified whether with hypoxia or hypercapnia 03/07/2023 03/12/2023 Last Assessment & Plan: Resolved Tracheostomy status 12/04/2022 02/27/20 23 Bacterial pneumonia 11/17/2022 03/12/20 23 Elevated blood pressure 06/06/201003/05 documented as of this encounter (statuses as of 03/13/2023) [facility] History of Past illness Narrative* Problem Noted Date Diagnosed Date Resolved Date COPD with exacerbation 03/12/202303/12 Respiratory failure, unspeci fied chronicity, unspecified whether with hypoxia or hypercapnia 03/07/2023 03/12/2023 Last Assessment & Plan: Resolved Tracheostomy status 12/04/2022 02/27/20 23 Bacterial pneumonia 11/17/2022 03/12/20 23 Elevated blood pressure 06/06/201003/05 documented as of this encounter (statuses as of 03/18/2023) [facility] History of Past illness Narrative* Problem Noted Date Diagnosed Date Resolved Date COPD with exacerbation 03/12/202303/12 Respiratory failure, unspeci fied chronicity, unspecified whether with hypoxia or hypercapnia 03/07/2023 03/12/2023 Last Assessment & Plan: Resolved Tracheostomy status 12/04/2022 02/27/20 23 Bacterial pneumonia 11/17/2022 03/12/20 23 Elevated blood pressure 06/06/201003/05 documented as of this encounter (statuses as of 03/22/2023) [facility] History of Past illness Narrative* Problem Noted Date Diagnosed Date Resolved Date COPD with exacerbation 03/12/202303/12 Respiratory failure, unspeci fied chronicity, unspecified whether with hypoxia or hypercapnia 03/07/2023 03/12/2023 Last Assessment & Plan: Resolved Tracheostomy status 12/04/2022 02/27/20 23 Bacterial pneumonia 11/17/2022 03/12/20 23 Elevated blood pressure 06/06/201003/05 documented as of this encounter (statuses as of 03/26/2023) [facility] History of Past illness Narrative* Problem Noted Date Diagnosed Date Resolved Date COPD with exacerbation 03/12/202303/12 Respiratory failure, unspeci fied chronicity, unspecified whether with hypoxia or hypercapnia 03/07/2023 03/12/2023 Last Assessment & Plan: Resolved Tracheostomy status 12/04/2022 02/27/20 23 Bacterial pneumonia 11/17/2022 03/12/20 23 Elevated blood pressure 06/06/201003/05 documented as of this encounter (statuses as of 03/29/2023) [facility] History of Past illness Narrative* Problem Noted Date Diagnosed Date Resolved Date COPD with exacerbation 03/12/202303/12 Respiratory failure, unspeci fied chronicity, unspecified whether with hypoxia or hypercapnia 03/07/2023 03/12/2023 Last Assessment & Plan: Resolved Tracheostomy status 12/04/2022 02/27/20 23 Bacterial pneumonia 11/17/2022 03/12/20 23 Elevated blood pressure 06/06/201003/05 documented as of this encounter (statuses as of 04/05/2023) [facility] History of Past illness Narrative* Problem Noted Date Diagnosed Date Resolved Date COPD with exacerbation 03/12/202303/12 Respiratory failure, unspeci fied chronicity, unspecified whether with hypoxia or hypercapnia 03/07/2023 03/12/2023 Last Assessment & Plan: Resolved Tracheostomy status 12/04/2022 02/27/20 23 Bacterial pneumonia 11/17/2022 03/12/20 23 Elevated blood pressure 06/06/201003/05 documented as of this encounter (statuses as of 04/07/2023) [facility] History of Past illness Narrative* Problem Noted Date Diagnosed Date Resolved Date COPD with exacerbation 03/12/202303/12 Respiratory failure, unspeci fied chronicity, unspecified whether with hypoxia or hypercapnia 03/07/2023 03/12/2023 Last Assessment & Plan: Resolved Tracheostomy status 12/04/2022 02/27/20 23 Bacterial pneumonia 11/17/2022 03/12/20 23 Elevated blood pressure 06/06/201003/05 documented as of this encounter (statuses as of 04/11/2023) [facility] History of Past illness Narrative* Problem Noted Date Diagnosed Date Resolved Date COPD with exacerbation 03/12/202303/12 Respiratory failure, unspeci fied chronicity, unspecified whether with hypoxia or hypercapnia 03/07/2023 03/12/2023 Last Assessment & Plan: Resolved Tracheostomy status 12/04/2022 02/27/20 23 Bacterial pneumonia 11/17/2022 03/12/20 23 Elevated blood pressure 06/06/201003/05 documented as of this encounter (statuses as of 04/12/2023) [facility] of Past illness Narrative* Problem Noted Date Diagnosed Date Resolved Date COPD with exacerbation 03/12/202303/12 Respiratory failure, unspeci fied chronicity, unspecified whether with hypoxia or hypercapnia 03/07/2023 03/12/2023 Last Assessment & Plan: Resolved Tracheostomy status 12/04/2022 02/27/20 23 Bacterial pneumonia 11/17/2022 03/12/20 23 Elevated blood pressure 06/06/201003/05 documented as of this encounter (statuses as of 04/15/2023) [facility] History of Past illness Narrative* Problem Noted Date Diagnosed Date Resolved Date COPD with exacerbation 03/12/202303/12 Respiratory failure, unspeci fied chronicity, unspecified whether with hypoxia or hypercapnia 03/07/2023 03/12/2023 Last Assessment & Plan: Resolved Tracheostomy status 12/04/2022 02/27/20 23 Bacterial pneumonia 11/17/2022 03/12/20 23 Elevated blood pressure 06/06/201003/05 documented as of this encounter (statuses as of 04/19/2023) [facility] History of Past illness Narrative* Problem Noted Date Diagnosed Date Resolved Date COPD with exacerbation 03/12/202303/12 Respiratory failure, unspeci fied chronicity, unspecified whether with hypoxia or hypercapnia 03/07/2023 03/12/2023 Last Assessment & Plan: Resolved Tracheostomy status 12/04/2022 02/27/20 23 Bacterial pneumonia 11/17/2022 03/12/20 23 Elevated blood pressure 06/06/201003/05 documented as of this encounter (statuses as of 04/22/2023) [facility] of Past illness Narrative* Problem Noted Date Diagnosed Date Resolved Date COPD with exacerbation 03/12/202303/12 Respiratory failure, unspeci fied chronicity, unspecified whether with hypoxia or hypercapnia 03/07/2023 03/12/2023 Last Assessment & Plan: Resolved Tracheostomy status 12/04/2022 02/27/20 23 Bacterial pneumonia 11/17/2022 03/12/20 23 Elevated blood pressure 06/06/201003/05 documented as of this encounter (statuses as of 05/10/2023) [facility] of Past illness Narrative* Problem Noted Date Diagnosed Date Resolved Date COPD with exacerbation 03/12/202303/12 Respiratory failure, unspeci fied chronicity, unspecified whether with hypoxia or hypercapnia 03/07/2023 03/12/2023 Last Assessment & Plan: Resolved Tracheostomy status 12/04/2022 02/27/20 23 Bacterial pneumonia 11/17/2022 03/12/20 23 Elevated blood pressure 06/06/201003/05 documented as of this encounter (statuses as of 05/14/2023) [facility] of Past illness Narrative* Problem Noted Date Diagnosed Date Resolved Date COPD with exacerbation 03/12/202303/12 Respiratory failure, unspeci fied chronicity, unspecified whether with hypoxia or hypercapnia 03/07/2023 03/12/2023 Last Assessment & Plan: Resolved Tracheostomy status 12/04/2022 02/27/20 23 Bacterial pneumonia 11/17/2022 03/12/20 23 Elevated blood pressure 06/06/201003/05 documented as of this encounter (statuses as of 05/14/2023) [facility] of Past illness Narrative* Problem Noted Date Diagnosed Date Resolved Date COPD with exacerbation 03/12/202303/12 Respiratory failure, unspeci fied chronicity, unspecified whether with hypoxia or hypercapnia 03/07/2023 03/12/2023 Last Assessment & Plan: Resolved Tracheostomy status 12/04/2022 02/27/20 23 Bacterial pneumonia 11/17/2022 03/12/20 23 Elevated blood pressure 06/06/201003/05 documented as of this encounter (statuses as of 05/15/2023) [facility] of Past illness Narrative* Problem Noted Date Diagnosed Date Resolved Date COPD with exacerbation 03/12/202303/12 Respiratory failure, unspeci fied chronicity, unspecified whether with hypoxia or hypercapnia 03/07/2023 03/12/2023 Last Assessment & Plan: Resolved Tracheostomy status 12/04/2022 02/27/20 23 Bacterial pneumonia 11/17/2022 03/12/20 23 Elevated blood pressure 06/06/201003/05 documented as of this encounter (statuses as of 05/23/2023) [facility] of Past illness Narrative* Problem Noted Date Diagnosed Date Resolved Date COPD with exacerbation 03/12/202303/12 Respiratory failure, unspeci fied chronicity, unspecified whether with hypoxia or hypercapnia 03/07/2023 03/12/2023 Last Assessment & Plan: Resolved Tracheostomy status 12/04/2022 02/27/20 23 Bacterial pneumonia 11/17/2022 03/12/20 23 Elevated blood pressure 06/06/201003/05 documented as of this encounter (statuses as of 05/28/2023) [facility] History of Past illness Narrative* Problem Noted Date Diagnosed Date Resolved Date COPD with exacerbation 03/12/202303/12 Respiratory failure, unspeci fied chronicity, unspecified whether with hypoxia or hypercapnia 03/07/2023 03/12/2023 Last Assessment & Plan: Resolved Tracheostomy status 12/04/2022 02/27/20 23 Bacterial pneumonia 11/17/2022 03/12/20 23 Elevated blood pressure 06/06/201003/05 documented as of this encounter (statuses as of 05/31/2023) [facility] of Past illness Narrative* Problem Noted Date Diagnosed Date Resolved Date COPD with exacerbation 03/12/202303/12 Respiratory failure, unspeci fied chronicity, unspecified whether with hypoxia or hypercapnia 03/07/2023 03/12/2023 Last Assessment & Plan: Resolved Tracheostomy status 12/04/2022 02/27/20 23 Bacterial pneumonia 11/17/2022 03/12/20 23 Elevated blood pressure 06/06/201003/05 documented as of this encounter (statuses as of 06/08/2023) [facility] of Past illness Narrative* Problem Noted Date Diagnosed Date Resolved Date COPD with exacerbation 03/12/202303/12 Respiratory failure, unspeci fied chronicity, unspecified whether with hypoxia or hypercapnia 03/07/2023 03/12/2023 Last Assessment & Plan: Resolved Tracheostomy status 12/04/2022 02/27/20 23 Bacterial pneumonia 11/17/2022 03/12/20 23 Elevated blood pressure 06/06/201003/05 documented as of this encounter (statuses as of 06/12/2023) [facility] of Past illness Narrative* Problem Noted Date Diagnosed Date Resolved Date COPD with exacerbation 03/12/202303/12 Respiratory failure, unspeci fied chronicity, unspecified whether with hypoxia or hypercapnia 03/07/2023 03/12/2023 Last Assessment & Plan: Resolved Tracheostomy status 12/04/2022 02/27/20 23 Bacterial pneumonia 11/17/2022 03/12/20 23 Elevated blood pressure 06/06/201003/05 documented as of this encounter (statuses as of 06/12/2023) [facility] of Past illness Narrative* Problem Noted Date Diagnosed Date Resolved Date COPD with exacerbation 03/12/202303/12 Respiratory failure, unspeci fied chronicity, unspecified whether with hypoxia or hypercapnia 03/07/2023 03/12/2023 Last Assessment & Plan: Resolved Tracheostomy status 12/04/2022 02/27/20 23 Bacterial pneumonia 11/17/2022 03/12/20 23 Elevated blood pressure 06/06/201003/05 documented as of this encounter (statuses as of 06/13/2023) [facility] of Past illness Narrative* Problem Noted Date Diagnosed Date Resolved Date COPD with exacerbation 03/12/202303/12 Respiratory failure, unspeci fied chronicity, unspecified whether with hypoxia or hypercapnia 03/07/2023 03/12/2023 Last Assessment & Plan: Resolved Tracheostomy status 12/04/2022 02/27/20 23 Bacterial pneumonia 11/17/2022 03/12/20 23 Elevated blood pressure 06/06/201003/05 documented as of this encounter (statuses as of 06/13/2023) [facility] of Past illness Narrative* Problem Noted Date Diagnosed Date Resolved Date COPD with exacerbation 03/12/202303/12 Respiratory failure, unspeci fied chronicity, unspecified whether with hypoxia or hypercapnia 03/07/2023 03/12/2023 Last Assessment & Plan: Resolved Tracheostomy status 12/04/2022 02/27/20 23 Bacterial pneumonia 11/17/2022 03/12/20 23 Elevated blood pressure 06/06/201003/05 documented as of this encounter (statuses as of 06/13/2023) [facility] of Past illness Narrative* Problem Noted Date Diagnosed Date Resolved Date COPD with exacerbation 03/12/202303/12 Respiratory failure, unspeci fied chronicity, unspecified whether with hypoxia or hypercapnia 03/07/2023 03/12/2023 Last Assessment & Plan: Resolved Tracheostomy status 12/04/2022 02/27/20 23 Bacterial pneumonia 11/17/2022 03/12/20 23 Elevated blood pressure 06/06/201003/05 documented as of this encounter (statuses as of 06/20/2023) [facility] of Past illness Narrative* Problem Noted Date Diagnosed Date Resolved Date COPD with exacerbation 03/12/202303/12 Respiratory failure, unspeci fied chronicity, unspecified whether with hypoxia or hypercapnia 03/07/2023 03/12/2023 Last Assessment & Plan: Resolved Tracheostomy status 12/04/2022 02/27/20 23 Bacterial pneumonia 11/17/2022 03/12/20 23 Elevated blood pressure 06/06/201003/05 documented as of this encounter (statuses as of 06/20/2023) [facility] of Past illness Narrative* Problem Noted Date Diagnosed Date Resolved Date COPD with exacerbation 03/12/202303/12 Respiratory failure, unspeci fied chronicity, unspecified whether with hypoxia or hypercapnia 03/07/2023 03/12/2023 Last Assessment & Plan: Resolved Tracheostomy status 12/04/2022 02/27/20 23 Bacterial pneumonia 11/17/2022 03/12/20 23 Elevated blood pressure 06/06/201003/05 documented as of this encounter (statuses as of 06/21/2023) [facility] of Past illness Narrative* Problem Noted Date Diagnosed Date Resolved Date COPD with exacerbation 03/12/202303/12 Respiratory failure, unspeci fied chronicity, unspecified whether with hypoxia or hypercapnia 03/07/2023 03/12/2023 Last Assessment & Plan: Resolved Tracheostomy status 12/04/2022 02/27/20 23 Bacterial pneumonia 11/17/2022 03/12/20 23 Elevated blood pressure 06/06/201003/05 documented as of this encounter (statuses as of 06/21/2023) [facility] of Past illness Narrative* Problem Noted Date Diagnosed Date Resolved Date COPD with exacerbation 03/12/202303/12 Respiratory failure, unspeci fied chronicity, unspecified whether with hypoxia or hypercapnia 03/07/2023 03/12/2023 Last Assessment & Plan: Resolved Tracheostomy status 12/04/2022 02/27/20 23 Bacterial pneumonia 11/17/2022 03/12/20 23 Elevated blood pressure 06/06/201003/05 documented as of this encounter (statuses as of 06/24/2023) [facility] of Past illness Narrative* Problem Noted Date Diagnosed Date Resolved Date COPD with exacerbation 03/12/202303/12 Respiratory failure, unspeci fied chronicity, unspecified whether with hypoxia or hypercapnia 03/07/2023 03/12/2023 Last Assessment & Plan: Resolved Tracheostomy status 12/04/2022 02/27/20 23 Bacterial pneumonia 11/17/2022 03/12/20 23 Elevated blood pressure 06/06/201003/05 documented as of this encounter (statuses as of 06/26/2023) [facility] History of Past illness Narrative* Problem Noted Date Diagnosed Date Resolved Date COPD with exacerbation 03/12/202303/12 Respiratory failure, unspeci fied chronicity, unspecified whether with hypoxia or hypercapnia 03/07/2023 03/12/2023 Last Assessment & Plan: Resolved Tracheostomy status 12/04/2022 02/27/20 23 Bacterial pneumonia 11/17/2022 03/12/20 23 Elevated blood pressure 06/06/201003/05 documented as of this encounter (statuses as of 06/26/2023) [facility] of Past illness Narrative* Problem Noted Date Diagnosed Date Resolved Date COPD with exacerbation 03/12/202303/12 Respiratory failure, unspeci fied chronicity, unspecified whether with hypoxia or hypercapnia 03/07/2023 03/12/2023 Last Assessment & Plan: Resolved Tracheostomy status 12/04/2022 02/27/20 23 Bacterial pneumonia 11/17/2022 03/12/20 23 Elevated blood pressure 06/06/201003/05 documented as of this encounter (statuses as of 07/01/2023) [facility] of Past illness Narrative* Problem Noted Date Diagnosed Date Resolved Date COPD with exacerbation 03/12/202303/12 Respiratory failure, unspeci fied chronicity, unspecified whether with hypoxia or hypercapnia 03/07/2023 03/12/2023 Last Assessment & Plan: Resolved Tracheostomy status 12/04/2022 02/27/20 23 Bacterial pneumonia 11/17/2022 03/12/20 23 Elevated blood pressure 06/06/201003/05 documented as of this encounter (statuses as of 07/02/2023) [facility] [place] History of Past illness Narrative* Problem Noted Date Diagnosed Date Resolved Date COPD with exacerbation 03/12/202303/12 Respiratory failure, unspeci fied chronicity, unspecified whether with hypoxia or hypercapnia 03/07/2023 03/12/2023 Last Assessment & Plan: Resolved Tracheostomy status 12/04/2022 02/27/20 23 Bacterial pneumonia 11/17/2022 03/12/20 23 Elevated blood pressure 06/06/201003/05 documented as of this encounter (statuses as of 07/08/2023) [facility] History of Past illness Narrative* Problem Noted Date Diagnosed Date Resolved Date COPD with exacerbation 03/12/202303/12 Respiratory failure, unspeci fied chronicity, unspecified whether with hypoxia or hypercapnia 03/07/2023 03/12/2023 Last Assessment & Plan: Resolved Tracheostomy status 12/04/2022 02/27/20 23 Bacterial pneumonia 11/17/2022 03/12/20 23 Elevated blood pressure 06/06/201003/05 documented as of this encounter (statuses as of 07/08/2023) [facility] History of Past illness Narrative* Problem Noted Date Diagnosed Date Resolved Date COPD with exacerbation 03/12/202303/12 Respiratory failure, unspeci fied chronicity, unspecified whether with hypoxia or hypercapnia 03/07/2023 03/12/2023 Last Assessment & Plan: Resolved Tracheostomy status 12/04/2022 02/27/20 23 Bacterial pneumonia 11/17/2022 03/12/20 23 Elevated blood pressure 06/06/201003/05 documented as of this encounter (statuses as of 07/12/2023) [facility] History of Past illness Narrative* Problem Noted Date Diagnosed Date Resolved Date COPD with exacerbation 03/12/202303/12 Respiratory failure, unspeci fied chronicity, unspecified whether with hypoxia or hypercapnia 03/07/2023 03/12/2023 Last Assessment & Plan: Resolved Tracheostomy status 12/04/2022 02/27/20 23 Bacterial pneumonia 11/17/2022 03/12/20 23 Elevated blood pressure 06/06/201003/05 documented as of this encounter (statuses as of 07/15/2023) [facility] History of Past illness Narrative* Problem Noted Date Diagnosed Date Resolved Date COPD with exacerbation 03/12/202303/12 Respiratory failure, unspeci fied chronicity, unspecified whether with hypoxia or hypercapnia 03/07/2023 03/12/2023 Last Assessment & Plan: Resolved Tracheostomy status 12/04/2022 02/27/20 23 Bacterial pneumonia 11/17/2022 03/12/20 23 Elevated blood pressure 06/06/201003/05 documented as of this encounter (statuses as of 07/15/2023) [facility] History of Past illness Narrative* Problem Noted Date Diagnosed Date Resolved Date COPD with exacerbation 03/12/202303/12 Respiratory failure, unspeci fied chronicity, unspecified whether with hypoxia or hypercapnia 03/07/2023 03/12/2023 Last Assessment & Plan: Resolved Tracheostomy status 12/04/2022 02/27/20 23 Bacterial pneumonia 11/17/2022 03/12/20 23 Elevated blood pressure 06/06/201003/05 documented as of this encounter (statuses as of 07/16/2023) [facility] History of Past illness Narrative* Problem Noted Date Diagnosed Date Resolved Date COPD with exacerbation 03/12/202303/12 Respiratory failure, unspeci fied chronicity, unspecified whether with hypoxia or hypercapnia 03/07/2023 03/12/2023 Last Assessment & Plan: Resolved Tracheostomy status 12/04/2022 02/27/20 23 Bacterial pneumonia 11/17/2022 03/12/20 23 Elevated blood pressure 06/06/201003/05 documented as of this encounter (statuses as of 07/23/2023) [facility] History of Past illness Narrative* Problem Noted Date Diagnosed Date Resolved Date COPD with exacerbation 03/12/202303/12 Respiratory failure, unspeci fied chronicity, unspecified whether with hypoxia or hypercapnia 03/07/2023 03/12/2023 Last Assessment & Plan: Resolved Tracheostomy status 12/04/2022 02/27/20 23 Bacterial pneumonia 11/17/2022 03/12/20 23 Elevated blood pressure 06/06/201003/05 documented as of this encounter (statuses as of 07/26/2023) [facility] History of Past illness Narrative* Problem Noted Date Diagnosed Date Resolved Date COPD with exacerbation 03/12/202303/12 Respiratory failure, unspeci fied chronicity, unspecified whether with hypoxia or hypercapnia 03/07/2023 03/12/2023 Last Assessment & Plan: Resolved Tracheostomy status 12/04/2022 02/27/20 23 Bacterial pneumonia 11/17/2022 03/12/20 23 Elevated blood pressure 06/06/201003/05 documented as of this encounter (statuses as of 09/10/2023) [facility] History of Past illness Narrative* Problem Noted Date Diagnosed Date Resolved Date COPD with exacerbation 03/12/202303/12 Respiratory failure, unspeci fied chronicity, unspecified whether with hypoxia or hypercapnia 03/07/2023 03/12/2023 Last Assessment & Plan: Resolved Tracheostomy status 12/04/2022 02/27/20 23 Bacterial pneumonia 11/17/2022 03/12/20 23 Elevated blood pressure 06/06/201003/05 documented as of this encounter (statuses as of 09/13/2023) [facility] History of Past illness Narrative* Problem Noted Date Diagnosed Date Resolved Date COPD with exacerbation 03/12/202303/12 Respiratory failure, unspeci fied chronicity, unspecified whether with hypoxia or hypercapnia 03/07/2023 03/12/2023 Last Assessment & Plan: Resolved Tracheostomy status 12/04/2022 02/27/20 23 Bacterial pneumonia 11/17/2022 03/12/20 23 Elevated blood pressure 06/06/201003/05 documented as of this encounter (statuses as of 09/16/2023) [facility] History of Past illness Narrative* Problem Noted Date Diagnosed Date Resolved Date COPD with exacerbation 03/12/202303/12 Respiratory failure, unspeci fied chronicity, unspecified whether with hypoxia or hypercapnia 03/07/2023 03/12/2023 Last Assessment & Plan: Resolved Tracheostomy status 12/04/2022 02/27/20 23 Bacterial pneumonia 11/17/2022 03/12/20 23 Elevated blood pressure 06/06/201003/05 documented as of this encounter (statuses as of 09/17/2023) [facility] History of Past illness Narrative* Problem Noted Date Diagnosed Date Resolved Date COPD with exacerbation 03/12/202303/12 Respiratory failure, unspeci fied chronicity, unspecified whether with hypoxia or hypercapnia 03/07/2023 03/12/2023 Last Assessment & Plan: Resolved Tracheostomy status 12/04/2022 02/27/20 23 Bacterial pneumonia 11/17/2022 03/12/20 23 Elevated blood pressure 06/06/201003/05 documented as of this encounter (statuses as of 09/19/2023) [facility] History of Past illness Narrative* Problem Noted Date Diagnosed Date Resolved Date COPD with exacerbation 03/12/202303/12 Respiratory failure, unspeci fied chronicity, unspecified whether with hypoxia or hypercapnia 03/07/2023 03/12/2023 Last Assessment & Plan: Resolved Tracheostomy status 12/04/2022 02/27/20 23 Bacterial pneumonia 11/17/2022 03/12/20 23 Elevated blood pressure 06/06/201003/05 documented as of this encounter (statuses as of 09/20/2023) [facility] History of Past illness Narrative* Problem Noted Date Diagnosed Date Resolved Date COPD with exacerbation 03/12/202303/12 Respiratory failure, unspeci fied chronicity, unspecified whether with hypoxia or hypercapnia 03/07/2023 03/12/2023 Last Assessment & Plan: Resolved Tracheostomy status 12/04/2022 02/27/20 23 Bacterial pneumonia 11/17/2022 03/12/20 23 Elevated blood pressure 06/06/201003/05 documented as of this encounter (statuses as of 09/24/2023) [facility] History of Past illness Narrative* Problem Noted Date Diagnosed Date Resolved Date COPD with exacerbation 03/12/202303/12 Respiratory failure, unspeci fied chronicity, unspecified whether with hypoxia or hypercapnia 03/07/2023 03/12/2023 Last Assessment & Plan: Resolved Tracheostomy status 12/04/2022 02/27/20 23 Bacterial pneumonia 11/17/2022 03/12/20 23 Elevated blood pressure 06/06/201003/05 documented as of this encounter (statuses as of 09/27/2023) [facility] History of Past illness Narrative* Problem Noted Date Diagnosed Date Resolved Date COPD with exacerbation 03/12/202303/12 Respiratory failure, unspeci fied chronicity, unspecified whether with hypoxia or hypercapnia 03/07/2023 03/12/2023 Last Assessment & Plan: Resolved Tracheostomy status 12/04/2022 02/27/20 23 Bacterial pneumonia 11/17/2022 03/12/20 23 Elevated blood pressure 06/06/201003/05 documented as of this encounter (statuses as of 10/02/2023) [facility] History of Past illness Narrative* Problem Noted Date Diagnosed Date Resolved Date COPD with exacerbation 03/12/202303/12 Respiratory failure, unspeci fied chronicity, unspecified whether with hypoxia or hypercapnia 03/07/2023 03/12/2023 Last Assessment & Plan: Resolved Tracheostomy status 12/04/2022 02/27/20 23 Bacterial pneumonia 11/17/2022 03/12/20 23 Elevated blood pressure 06/06/201003/05 documented as of this encounter (statuses as of 10/02/2023) [facility] History of Past illness Narrative* Problem Noted Date Diagnosed Date Resolved Date COPD with exacerbation 03/12/202303/12 Respiratory failure, unspeci fied chronicity, unspecified whether with hypoxia or hypercapnia 03/07/2023 03/12/2023 Last Assessment & Plan: Resolved Tracheostomy status 12/04/2022 02/27/20 23 Bacterial pneumonia 11/17/2022 03/12/20 23 Elevated blood pressure 06/06/201003/05 documented as of this encounter (statuses as of 10/04/2023) [facility]08[facility] History of Past illness Narrative* Problem Noted Date Diagnosed Date Resolved Date COPD with exacerbation 03/12/202303/12 Respiratory failure, unspeci fied chronicity, unspecified whether with hypoxia or hypercapnia 03/07/2023 03/12/2023 Last Assessment & Plan: Resolved Tracheostomy status 12/04/2022 02/27/20 23 Bacterial pneumonia 11/17/2022 03/12/20 23 Elevated blood pressure 06/06/201003/05 documented as of this encounter (statuses as of 10/11/2023) [facility] History of Past illness Narrative* Problem Noted Date Diagnosed Date Resolved Date COPD with exacerbation 03/12/202303/12 Respiratory failure, unspeci fied chronicity, unspecified whether with hypoxia or hypercapnia 03/07/2023 03/12/2023 Last Assessment & Plan: Resolved Tracheostomy status 12/04/2022 02/27/20 23 Bacterial pneumonia 11/17/2022 03/12/20 23 Elevated blood pressure 06/06/201003/05 documented as of this encounter (statuses as of 10/28/2023) [facility] History of Past illness Narrative* Problem Noted Date Diagnosed Date Resolved Date COPD with exacerbation 03/12/202303/12 Respiratory failure, unspeci fied chronicity, unspecified whether with hypoxia or hypercapnia 03/07/2023 03/12/2023 Last Assessment & Plan: Resolved Tracheostomy status 12/04/2022 02/27/20 23 Bacterial pneumonia 11/17/2022 03/12/20 23 Elevated blood pressure 06/06/201003/05 documented as of this encounter (statuses as of 11/05/2023) [place] [address]-08-2023 History of Past illness Narrative* Problem Noted Date Diagnosed Date Resolved Date COPD with exacerbation 03/12/202303/12 Respiratory failure, unspeci fied chronicity, unspecified whether with hypoxia or hypercapnia 03/07/2023 03/12/2023 Last Assessment & Plan: Resolved Tracheostomy status 12/04/2022 02/27/20 23 Bacterial pneumonia 11/17/2022 03/12/20 23 Elevated blood pressure 06/06/201003/05 documented as of this encounter (statuses as of 11/22/2023) [facility]08[facility] History of Present illness Narrative* Kimo Mcgrath MD - 03/12/2023 1:30 PM EDT Images from the original note were not included. . Respiratory Norris Note Patient name: Afshin Zee PCP: Jaci [...] Imaging / Diagnostic Studies: Chest CT 05/2022 [facility]: Reviewed actual images which shows emphysema and [...] fluticasone (FLONASE) 50 mcg/actuation nasal spray^Use 1 Premium in each nostril twice daily. Rinse mouth [...] foot brace for right leg. Send to [email or web address]. Dx: I63.9^Disp: 1 Device^Rfl: 0 COMPOUNDED PRESCRIPTION^EMBER [...] Problem Relation Age of Onset Heart Mother OR in her 70s, pacemaker Diabetes Mother Stroke [...] for liquid albuterol Former cigarette smoker -Former 23-wyah-khcs smoker having quit in 2016 with sequelae of emphysema -Patient qualifies for lung cancer screening but would not be due until January 2024. Will make referral at next visit Old CVA, hemiparesis -Patient in therapy Kimo Mcgrath MD Respiratory [facility] documented in this encounterPrem[facility] History of Present illness Narrative* Beba Teran RPFT - 03/12/2023 1:20 PM EDT PULM FUNCTION SMARTBLOCK: Provider: Kimo Mcgrath MD Assisting Tech: Beba Teran RPFT Spirometry w/BD: 1 DLCO: 1 documented in this encounterPremier Health [facility] Nurse Note* Deanne Neville LPN - 03/12/2023 1:16 PM EDT Intake information documented in the prior visit with LUIS ANGEL Cope today. documented in this encounterPrem[facility]-2023 Miscellaneous Notes* Telephone Encounter - Rachel Buckley [...] Completed form needs to be faxed to [facility] at [phone]. Route to [place] when form completed for processing documented in this encounterPremier [facility]23 Miscellaneous Notes* Telephone Encounter - Jaci Arroyo [...] advise. Alvin Nick LPN documented in this encounterPremier Health [facility]08-07-2023 Miscellaneous Notes* Telephone Encounter - Rachel Buckley Ma - 03/11/2023 4:29 PM EDT Call to and notified her of message below from Provider. [facility] [employer] [facility] Rachel Buckley Ma * Telephone Encounter [...] to incorrect pharmacy. Requesting script becanceled at [facility] and sent to [facility] in [place]. Please call Eli once this has been [...] with reply. Thank you. documented in this encounterPremier Health [facility]03-[facility] History of Present illness Narrative* Jaci Arroyo MD - 03/07/2023 3:20 PM EDT Chief [...] home. Was having PT/OT and speech at [facility], on hold for the past few weeks [...] Afib/HTN/CAD/Lipid - Following with Dr. Johansen, [facility], taking Eliquis 5 mg BID, Ropknww19 mg half pill BID, Pacerone 100 mg [...] Nephrology. Follows with Pulmonary Dr. Mcgrath at [facility]. Is using Spiriva Respimat inhaler, nebulizer tx. [...] Problem Relation Age of Onset Heart Mother OR in her 70s, pacemaker Diabetes Mother Stroke [...] (FLONASE) 50 mcg/actuation nasal spray Use 1 Premium in each nostril twice daily. Rinse mouth after use. albuterol HFA (PROVENTIL HFA, VENTOLIN HFA) 90 mcg/actuation inhaler Inhale 2 Puffs as instructed every 4 hours as needed for Wheezing/Shortness of Breath. Blood Pressure Monitor kit 1 application twice daily. Measure patient for correct size. Patient needs cuff for left arm readings. COMPOUNDED PRESCRIPTION Articulating AFO foot brace for right leg. Send to [email or web address]. Dx: I63.9 COMPOUNDED PRESCRIPTION EMBER WALKER DX [...] regular exercise 4. Coronary artery disease involving [place] coronary artery of [place] heart without angina pectoris- ICD9: 414.01, ICD10: [...] Histories independently gathered by the clinical technical sales support manager and the remaining scribed note accurately describes [...] PM. Rachel Buckley Ma documented in this encounterPremier Health [facility]08-02-2023 Miscellaneous Notes* Telephone Encounter - Mariano Beckman [...] advise. Kassandra Tai LPN documented in this encounterPremier Health [facility]07-28-2023 Miscellaneous Notes* Telephone Encounter - Mariano Beckman [...] you. Loida Vazquez LPN documented in this encounterPremier Health [facility]07-27-2023 Miscellaneous Notes* Telephone Encounter - Therese Casas [...] today. Lora James, RN documented in this encounterPremier Health [facility]07-27-2023 Miscellaneous Notes* Telephone Encounter - Monica Cruz Ma - 02/28/2023 8:39 AM EDT Detailed message left on Eli's identified VM. Monica Cruz Ma * Telephone Encounter - Monica Cruz Ma - 02/28/2023 8:37 AM EDT ----- Message from Mariano Beckman APRN.CNP sent at 02/27/2023 7:33 PM EDT ----- Please let patient know that no bacteria grew on culture Mariano Beckman CNP documented in this encounterPremier Health [facility]07-19-2023 Miscellaneous Notes* Telephone Encounter - Camila Weaver [...] results. Camila Weaver RN documented in this encounterPremier Health [facility]07-14-2023 Miscellaneous Notes* Telephone Encounter - Monica Cruz [...] something else. Jessa Ellis. documented in this encounterPremier Health [facility]07-13-2023 Miscellaneous Notes* Telephone Encounter - Dixie Naranjo [...] EDT RUTH ANN Carbajal @ [facility] calling to ask PCP recommendation for tone management in right hand. She is asking if Botox injection is a possibility for this patient? If not, any alternatives. Splinting is difficult due to tightness of thumb against the palm. Dixie Naranjo RN documented in this encounterPremier Health [facility]07-13-2023 Miscellaneous Notes* Telephone Encounter - Jaci Arroyo MD - 02/14/2023 4:05 PM EDT Medication was stopped by Cardiology Jaci Arroyo MD * Telephone Encounter - Monica Cruz Ma - 02/14/2023 3:26 PM EDT Images from the original note were not included. documented in this encounterPremier Health [facility]06-26-2023 Miscellaneous Notes* Telephone Encounter - Jaci Arroyo [...] refill? Monica Cruz Ma documented in this encounterPremier Health [facility]06-19-2023 History of Present illness Narrative* Hazel Stubbs [...] Care Gap or Scheduling/Wellness visits Payer: Payor: [facility] MEDICAID / Plan: [facility] MEDICAID / Product Type: Medicaid / [...] 21, 2023 12:31 PM documented in this encounterPremier Health [facility]05-09-2023 Miscellaneous Notes* Telephone Encounter - Jaci Arroyo MD - 12/11/2022 4:15 PM EDT OK for Augmentin as ordered Jaci Arroyo MD * Telephone Encounter - Loida Vazquez LPN - 12/11/2022 3:29 PM EDT Khris from [facility] pharmacy calling the Cefdinir is on manufacture back order. Asking for another rx to replace it please. Please advise documented in this encounterPremier Health [facility]05-08-2023 Miscellaneous Notes* Telephone Encounter - Jaci Arroyo MD - 12/10/2022 8:10 PM EDT Noted Jaci Arroyo MD * Telephone Encounter - Jayde Laughlin RN - 12/10/2022 9:40 AM EDT Kyile from [facility] calls and states that she had spoke with patient's and was toldthat patient will not be able to start therapy until January. states that she has a lot going on before then. Kylie thinks that is only interested in patient doing physical therapy. Patient does have swallow study scheduled for 12/26/2022. Please review and advise, Jayde Laughlin RN documented in this encounterPremier Health [facility]05-08-2023 Miscellaneous Notes* Telephone Encounter - Christina Ozuna [...] use [facility]. documented in this encounterPremier Health [facility]05-04-2023 Miscellaneous Notes* Telephone Encounter - Monica Cruz Ma - 12/06/2022 2:10 PM EDT Swallow test and demo faxed to [facility]. Pt Eli via identified VM. ST order faxed to [facility]. Monica Cruz Ma * Telephone Encounter - Jaci Arroyo MD - 12/06/2022 1:52 PM EDT Orders printed Jaci Arroyo MD * Telephone Encounter - Kim Person LPN - 12/06/2022 12:22 PM EDT Nayeli from [facility] speech therapy calling to report she was out to see pt today & he has met his goals & is discharged to FU with out pt therapy. 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 Fax to [employer]. Nayeli states pt's is requesting an order for a modified barium swallow to be faxed to registration at [facility]. Order must include modified And to call Eli when order has been sent. Kim Person LPN documented in this encounterPremier Health [facility]05-04-2023 Miscellaneous Notes* Telephone Encounter - Monica Cruz Ma - 12/06/2022 12:00 PM EDT Orders faxed to [facility]. Monica Cruz Ma * Telephone Encounter - Jaci Arroyo MD - 12/06/2022 8:32 AM EDT Orders filed Jaci Arroyo MD * Telephone Encounter - Loida Vazquez LPN - 12/05/2022 2:04 PM EDT Valentine from [facility] calling asking for orders to be faxed to [facility] for PT/OT, speech Therapy as outpatient to start next week. is working on transportation. Just asking to put on PTorder that patient CVA was 6 years ago. Pending orders Please advise documented in this encounterPremier Health [facility]05-04-2023 Miscellaneous Notes* Telephone Encounter - Kimo Adamson Ma - 12/06/2022 8:36 AM EDT PA was approved and was notified Kimo Adamson Ma * Telephone Encounter - Kmio Adamson Ma - 12/05/2022 11:50 AM EDT Electronic PA crerated Kimo Adamson Ma * Telephone Encounter - Camila Downey LPN - 12/05/2022 11:11 AM EDT Pt.s calling and states Ativan needs prior authorization. Please advise. documented in this encounterPremier Health [facility]05-02-2023 History of Present illness Narrative* Cheyanne Wells [...] 04, 2022 4:45 PM documented in this encounterPremier Health [facility]05-02-2023 Miscellaneous Notes* Telephone Encounter - Jaci Arroyo MD - 12/04/2022 4:13 PM EDT Noted Jaci Arroyo MD * Telephone Encounter - Jayde Laughlin RN - 12/04/2022 1:16 PM EDT DEB Reinoso from [facility] calls to report that patient had fallen on Saturday12/01/2022. Patient got up from car without 's assistance and fell. No injuries noted. No call back need. Jayde Laughlin RN documented in this encounterPremier Health [facility]05-02-[facility]23 History of Present illness Narrative* Jaci Arroyo [...] He's completed his abx. He follows with [facility] Pulmonary, but recently got a referral to [facility] and is scheduled to see them [...] Problem Relation Age of Onset Heart Mother OR in her 70s, pacemaker Diabetes Mother Stroke [...] (FLONASE) 50 mcg/actuation nasal spray Use 1 Premium in each nostril twice daily. Rinse mouth after use. albuterol HFA (PROVENTIL HFA, VENTOLIN HFA) 90 mcg/actuation inhaler Inhale 2 Puffs as instructed every 4 hours as needed for Wheezing/Shortness of Breath. Blood Pressure Monitor kit 1 application twice daily. Measure patient for correct size. Patient needs cuff for left arm readings. COMPOUNDED PRESCRIPTION Articulating AFO foot brace for right leg. Send to [email or web address]. 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 Monica Cruz Ma documented in this encounterPremier Health [facility]05-02-[facility]23 History of Past illness Narrative* Problem Noted Date Diagnosed Date Resolved Date Tracheostomy status 12/04/2022 02/27/20 Elevated blood pressure 06/06/201003/05 documented as of this encounter (statuses as of 02/28/2023) [address]02-2023 History of Past illness Narrative* Problem Noted Date Diagnosed Date Resolved Date Tracheostomy status 12/04/2022 02/27/20 23 Elevated blood pressure 06/06/201003/05 documented as of this encounter (statuses as of 03/01/2023) [facility] History of Past illness Narrative* Problem Noted Date Diagnosed Date Resolved Date Tracheostomy status 12/04/2022 02/27/20 23 Elevated blood pressure 06/06/201003/05 documented as of this encounter (statuses as of 03/01/2023) [facility]05-02-2023 History of Past illness Narrative* Problem Noted Date Diagnosed Date Resolved Date Tracheostomy status 12/04/2022 02/27/20 23 Elevated blood pressure 06/06/201003/05 documented as of this encounter (statuses as of 03/06/2023) [facility]05-02-2023 History of Past illness Narrative* Problem Noted Date Diagnosed Date Resolved Date Tracheostomy status 12/04/2022 02/27/20 23 Elevated blood pressure 06/06/201003/05 documented as of this encounter (statuses as of 03/08/2023) [facility]05-02-2023 History of Past illness Narrative* Problem Noted Date Diagnosed Date Resolved Date Tracheostomy status 12/04/2022 02/27/20 23 Elevated blood pressure 06/06/201003/05 documented as of this encounter (statuses as of 03/12/2023) [facility]05-01-2023 Miscellaneous Notes* Telephone Encounter - Dixie Naranjo [...] other advise. Thank you. documented in this encounterPrem[facility]04-[facility]23 Miscellaneous Notes* Telephone Encounter - Jaci Arroyo MD - 11/29/2022 2:23 PM EDT Noted and agree Jaci Arroyo MD * Telephone Encounter - Loida Vazquez LPN - 11/29/2022 11:29 AM EDT Nayeli Whitmore from [facility] Home Health calling with plan of care beginning 12/02 week one visit weekly for 1 week working on AAC and diet texture management. documented in this encounterPrem[facility] Miscellaneous Notes* Telephone Encounter - Jaci Arroyo MD - 11/27/2022 4:37 PM EDT Noted Jaci rAroyo MD * Telephone Encounter - Dimple Agustin LPN - 11/27/2022 3:47 PM EDT Valentine with [facility] OT calls to report she saw pt today (delay of care due to spouse's request). OT will see pt twice a week x 2 weeks to continue working on ADL's and IDL's. Valentine reports pt's resting HR today was 49-60. Pt has hx of A-fib. Only contact Valentine if there are any new orders or questions. Dimple Agustin LPN documented in this encounterPrem[facility]23 Miscellaneous Notes* Telephone Encounter - Jaci Arroyo MD - 11/26/2022 2:04 PM EDT Noted and agree Jaci Arroyo MD * Telephone Encounter - Loida Vazquez LPN - 11/26/2022 1:11 PM EDT Jessie from [facility] Home Health calling with PT plan of care, 2 visits weekly for 3 weeks working on endurance, balance and gait training. documented in this encounterPrem[facility]23 Miscellaneous Notes* Telephone Encounter - JAKI Pelletier [...] hospital. Kia Waters LPN documented in this encounterPrem[facility]-17-2023 Miscellaneous Notes* Telephone Encounter - Monica Cruz Ma - 11/19/2022 3:47 PM EDT Detailed message left on Nayeli's identified VM. Monica Cruz Ma * Telephone Encounter - Jaci Arroyo MD - 11/19/2022 3:43 PM EDT OK for verbal order for delay of care as requested Jaci Arroyo MD * Telephone Encounter - Milan Brunson RN - 11/19/2022 2:20 PM ED[facility] for [facility] of care. Reports she was suppose to see patient today, but per , patient was admitted to [facility] overnight, with fluid around lungs/heart and hospital was consulting with manager product support. Per , plan was to d/c to home today, dependingon manager product support. Please phone Nayeli with verbal. 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 Contact a doctor if: You have a [...] 01/07/2009 Document Revised: 11/11/2019 Document Reviewed: 03/19/2019 [employer] Patient Education 2020 [employer] Follow Up Care 11/18/2022 13:04:23 With:JACI ARROYO MD Address: [address] [place] [address]- When:3-5 days Comments:Please call to schedule your post-hospital follow-up appointment. [facility] 04-17-2023 Note Discharge Instructions Thank you for allowing [facility] to assist you with your healthcare needs. The following is importantdischarge information regarding your hospital visit. Your Care Team Kylie Blum NEW GRAD RN Your Diagnosis PNA (pneumonia) Atrial fibrillation DARON [...] would recommend that you follow-up with your manager product support if there is continued concern for heart failure. Follow Up Appointments Follow Up with JACI ARROYO MD When Within 3-5 days Why: Please call to schedule your post-hospital follow-up appointment. Where: [address] [place] [address]- The Following Activity and Diet Have Been [...] at 0836am Changed potassium chloride (Potassium Chloride (Api-Fhuf-Akr 10) 10 mEq oral tablet, extended release) [...] Follow these instructions at home: Medicines Take chbc-zbp-mdzyxad and prescription medicines only as told by [...] cannot use soap and water, use hand briquette molder. Contact a doctor if: You have a [...] 01/07/2009 Document Revised: 11/11/2019 Document Reviewed: 03/19/2019 [employer] Patient Education 2020 [employer] Additional Information VACCINATE! IT SAVES LIVES! Members of the community who have not yet received the COVID-19 vaccine and would like to receive it can visit one of [facility] vaccine clinics. There are many vaccine clinic locations within the [facility]. For locations and available times, please visit https://gettheshot.coronavirus.[place].gov/. It is important to note that some COVID mobile vaccine clinics are held outdoors and may be canceled in rainy or stormy conditions. To learn more about pediatric vaccinations (ages 5-11), we invite you to visit the [facility] webpage. https://www.[facility].org/pages/5794-Hnkdn-Wthyhmksjmi-Phbgndeyac-Haszf-Eit stions.htmlTo learn more about the COVID-19 vaccine, we invite you to visit the CDC website for a list of frequently asked questions. https://www.cdc.gov/coronavirus/2019-ncov/vaccines/faq.html [facility] Patient Portal Access Instructions: Stay connected with your healthcare team and access your personal medical information anytime with the [facility] Patient Portal.If you would like a full copy of your medical records, please contact the [facility] Medical Records Department, Saturday through Saturday between 8a.m. and 4:30p.m. Please follow the directions below to access the portal: 1.Access the email account you provided upon registration to the [facility].2.Look for an invitation email from [facility].3.Open the email and access the invitation link: Accept Invitation to [facility]4.Fill in the required krueger to create your account. Sign into [email or web address] with your username and password that you [...] you will allow to register on the [facility] Patient Portal for access to your information. You can also access the [facility] Patient Portal on the [employer]. Simply click on Health Records under NetClarity and then click on the [employer] logo. HOW TO SAFELY DISPOSE OF PRESCRIPTION [...] Call your local pharmacy or go to http://nprogress.SimpleCrew/6H9We3a to find one close to you.3.Make use of household items: Use cat litter or old coffee grounds to dispose medications if other options arenot available. Mix your drugs with these household products, seal them in an airtight container andthrow it into the garbage. Call [facility]: [phone] to be sure your drugs can be [...] Signatures Patient Education Materials Community-Acquired Pneumonia, Adult, Buaq-ka-Ztcc Medication Leaflets My discharge plan and instructions have been reviewed and explained to me and I,AFSHIN ZEE understand my current condition and have read and understand these discharge instructions. I have receiveda written copy of the plan/instructions. If I have questions, I am aware that I should contact my do ctor. Patient/Mounter [employer] Signature: Date/Time: Relationship to Patient: Witness Name/Signature: Date/Time: [facility]04-17-2023 Note ORIGINAL EXAMINATION: TWO XRAY VIEWS OF [...] Date: 11/19/2022 7:51:22 AM Ordering Provider: [facility]04-17-2023 Note ORIGINAL EXAMINATION: TWO XRAY VIEWS OF [...] 11/19/2022 7:51:22 AM Ordering Provider[facility] Note Date of Service 11/18/2022 Chief Complaint Pt was recently D/C'd from [facility] with aspiration pneumonia. states he is not over it. States he is still getting short of breath. History of Present Illness 67-year-old male with past medical history significant for atrial fibrillation, CVA with expressiveaphasia, hypertension, CAD s/p CABG 2017 , PVD, COPD, DARON, HLD. Patient presented to [facility] emergency department on 11/18/2022 with increasing dyspnea. Patient was just discharged from [facility] on 11/15/2022 for community-acquired pneumonia vs [...] He was seen by speech therapy at [facility] with recommendations for soft foods. Atypicals were negative At [facility]. We will not continue doxycycline. Will continue Augmentin. Patient is being admitted for observation due to concerns for Aspiration. Likely will be able to discharge home tomorrow morning. Repeat two-view chest x-ray tomorrow morning. Atrial fibrillation rate controlled. He was discharged from [facility] with metoprolol being doubled however PCP change [...] scheduled for anechocardiogram on 11/29/2022 by his manager product support. DVT prophylaxis:Apixaban Labs, diagnostics, and progress notes [...] Multivitamin 1 tab(s), Oral, Daily Potassium Chloride (Czg-Smcp-Mcn 10) 10 mEq oral tablet, extended release [...] by KYLIE BLUM on 11/18/2022 05:40 PM [place] [address]-16-2023 Miscellaneous Notes* Telephone Encounter - Ford Jones RN - 11/18/2022 3:08 PM EDT Pt's stated pt is at the ER in [place]. He just got out of the [facility] on and she had to call the [...] VM. Left a message. documented in this encounterPrem[facility]23 Note ORIGINAL EXAMINATION: ONE XRAY VIEW OF [...] 11/18/2022 2:43:00 PM Ordering Provider: LILIBETH HUYNH [facility]04-16-2023 Note ORIGINAL EXAMINATION: ONE XRAY VIEW OF [...] Date: 11/18/2022 2:43:00 PM Ordering Provider: [facility] Evaluation + Plan noteExtracted from: Title:History and Physical Author:KYLIE BLUM APRN-LAUNDRY OPERATOR WASH ROOM Date:11/18/22 1. PNA (pneumonia) 2. Atrial fibrillation 3. DARON and COPD overlap syndrome Pneumonia had concerns for continued aspiration and increasing dyspnea. Patient has adequate oxygen saturations on room air. His lungs are clear and diminished. He was seen by speech therapy at [facility] with recommendations for soft foods. Atypicals were negative At [facility]. We will not continue doxycycline. Will continue Augmentin. Patient is being admitted for observation due to concerns for Aspiration. Likely will be able to discharge home tomorrow morning. Repeat two-view chest x-ray tomorrow morning. Atrial fibrillation rate controlled. He was discharged from [facility] with metoprolol being doubled however PCP change [...] for an echocardiogram on 11/29/2022 by his manager product support. DVT prophylaxis:Apixaban Labs, diagnostics, and progress notes reviewed as noted in HPI Code Status: Full code Plan of care discussed with patient. All questions answered. Patient verbalizes understanding is agreeable to plan of care. This dictation was performed using voice recognition software and may include grammatical and/or spelling errors. [facility] 04-15-2023 History of Present illness Narrative* Jaci [...] today's visit. HPI Pt was admitted to [facility] on 11/11/22 for SOB. He was discharged [...] to get into outpt PT/OT [facility] at [facility]. Considering respite care at [facility] or [place] Below copied from [facility] Meditech: Chief Complaint: Shortness of Breath Informant: [...] a previous stroke, CVA, hypertension presented to [facility] 11/11/2022 with coughing and shortnessof breath. [...] prn Jaci Arroyo MD documented in this encounterPremier Health [facility]04-14-2023 Miscellaneous Notes* Telephone Encounter - Kimo Adamson Ma - 11/16/2022 4:32 PM EDT Patient was left detailed message on confidential vm Kimo Adamson Ma * Telephone Encounter - Jaci Arroyo MD - 11/16/2022 4:28 PM EDT OK for verbal order for SW as requested Jaci Arroyo MD * Telephone Encounter - Loida Vazquez LPN - 11/16/2022 2:27 PM EDT Oliva from [facility] Home Health calling asking for verbal order for Social Work. Also longterm plan of care if patient does not go to [facility], 1 visit weekly for 1 week, then 2 visits weekly for 2 weeks, then 1 visit weekly for 1 week. Please advise documented in this encounterPremier Health [facility]04-14-2023 Miscellaneous Notes* Telephone Encounter - Monica Cruz Ma - 11/16/2022 4:29 PM EDT Med list, problems list and letter faxed. Monica Cruz Ma * Telephone Encounter - Jaci Arroyo MD - 11/16/2022 4:27 PM EDT Letter done; may fax along with med list, problem list Jaci Arroyo MD * Telephone Encounter - Loida Vazquez LPN - 11/16/2022 2:21 PM EDT Eva from [facility] Home Health Social Work calling family is asking to have orders faxed to [facility] in [place] fax number is [phone]. Wanting a Respite stay for the patient. Aware patient has appt with PCP Saturday11/17/2022. Please advise documented in this encounterPrem[facility]-2023 Miscellaneous Notes* Telephone Encounter - Monica Cruz [...] Brunson RN - 11/16/2022 11:04 AM EDT [facility] asking for verbal order for HH to send RN to patient's home today. Reports she spoke with who tells her patient's POX is running in the 70's, states she doesn't think she is able to care for patient in the home as patient is fighting with her about eating and his care. Pleasephone with verbal lucía. [phone] documented in this encounterPrem[facility] Health [facility]04-14-[facility]23 History of Present illness Narrative* Alvin Nick LPN - 11/16/2022 10:31 AM EDT Pt , Eli, returns call to office. Eli notified of provider response. Eli states she is very concerned that pt was dc'd from hospital so soon with pneumonia. She states [facility] (see triage note from last evening) [...] EDT TRANSITION CARE MANAGEMENT (TCM) INITIAL CONTACT Recruiting Intern Outreach Provider Action/FYI: is worried about metoprolol [...] might be hidden SUMMARY: -Pt discharged from [facility] on 11/16/2022. -Admitted for: Pneumonia Do you [...] Twice a day x 6 days Doxycycline Aitkin 100 mg x 6 days Were you [...] EDT TRANSITION CARE MANAGEMENT (TCM) INITIAL CONTACT Recruiting Intern Outreach Provider Action/FYI: 7 Day TCM 11/16/22-Message [...] might be hidden SUMMARY: -Pt discharged from [facility] on 11/15/22. -Admitted for: Pneumonia Hypoxemia Do [...] for provider to review documented in this encounterPremier Health [facility]04-13-[address] Burns [facility] November 15, 2022 5:13pm Note Date/Time November 15, 2022 3:1 7pm [facility] Medical Records Department [address] [place] [address] Discharge Summary 11/15/22 1516 MR#: [id number] Acct: [id number] Name: AFSHIN ZEE Rep #:[id number] : 1955 67 From: Felecia Burns MD PCP: Dr. Jaci Arroyo MD Status:AD M IN [facility] Prov[facility] Date of Admission: 11/11/22 Date [...] mg tablet 5 mg PO TID 02/05/17 multivitamin,tu-qmzs-gwvmctgb (Complete Multivitamin tablet) 1 tab PO DAILY [...] a previous stroke, CVA, hypertension presented to [facility] 11/11/2022 with coughing and shortness of [...] % (Auto) 60.7, Lymph % (Auto) 16.1 L,Aitkin % (Auto) 12.1 H, Eos % (Auto) [...] Health Service Charges/Coding Visit Charges Inpatient E&M: 08384 Disch Hosp >30min 11/15/22 6070 <Electronically signed by Felecia Burns MD> Cosigner Signature (if applicable): CC: Dr. Jaci Arroyo MD; Dr. Felecia Burns MD~ Signed [facility] Work Phone: 1(537) 457-493304-13-[address] Burns [facility] November 15, 2022 3:16pm Note Date/Time November 15, 2022 2:3 5pm [facility] Medical Records Department [address] [place] [address] Instructions for Home/Discharge Instructions 11/15/22 1433 MR#: [id number] Acct: [id number] Name: AFSHIN ZEE Rep #:[id number] : 1955 67 From: Felecia Burns MD [...] MD; Dr. Arti Escalante MD ~ Signed [facility] Work Phone: 1(288) 926-839504-12-[address] Burns [facility] November 14, 2022 1:47pm Note Date/Time November 14, 2022 12: 20pm [facility] Medical Records Department [address] [place] [address] Progress Note - Hospitalist 11/14/22 1220 MR#: [id number] Acct: [id number] Name: AFSHIN ZEE Rep #:[id number] : 1955 67 From: Felecia Burns MD PCP: Dr. Jaci Arroyo MD Status:AD M IN Location: [place] [address]- 1 Reason for Visit Reason for Visit: [...] % (Auto) 65.9, Lymph % (Auto) 13.7 L,Aitkin % (Auto) 10.1 H, Eos % (Auto) [...] 30 mins Charges/Coding Visit Charges Inpatient E&M: 84032 Subs Hosp L2 11/14/22 1347 <Electronically signed by Felecia Burns MD> Cosigner Signature (if applicable): CC: ~ Signed [facility] Work Phone: 1(649) 771-428004-12-2023 Miscellaneous Notes* Telephone Encounter - Amaya Kessler RN - 11/14/2022 9:08 AM EDT Patient's Eli calling to inform Dr. Arroyo that patient has been admitted to [facility] on 11/11 with pneumonia. states she will be making PCP F/U appt when pt is discharged from [facility]. No call back needed. Amaya Kessler RN documented in this encounterPremier Health [facility]04-11-[address] Burns [facility] November 13, 2022 10:19am Note Date/Time November 13, 2022 10: 10am [facility] Medical Records Department [address] [place] [address] Progress Note - Hospitalist 11/13/22 1009 MR#: [id number] Acct: [id number] Name: AFSHIN ZEE Rep #:[id number] : 1955 67 From: Felecia Burns MD PCP: Dr. Jaci Arroyo MD Status:AD M IN Location: [place] [address] Reason for Visit Reason for Visit: Diagnoses [...] (Auto) 70.5 H, Lymph % (Auto) 13.1 L,Aitkin % (Auto) 9.8, Eos % (Auto) 5.1 [...] 30 mins Charges/Coding Visit Charges Inpatient E&M: 40673 Subs Hosp L2 11/13/22 1019 <Electronically signed by Felecia Burns MD> Cosigner Signature (if applicable): CC: ~ Signed [facility] Work Phone: [phone]) 790-310604-11-2023 Miscellaneous Notes* Telephone Encounter - Jayde Laughlin RN - 11/13/2022 10:15 AM EDT Patient currently at [facility] with pneumonia. * Telephone Encounter - Khris Gutierrez RN - 11/08/2022 4:08 PM EDT Kylie [facility] HH nurse called in and reports that [...] that she will just take patient to [facility] ER when her appointment isdone. Please review and advise, Jayde Laughlin RN documented in this encounterPremier Health [facility]04-10-[address] Burns [facility] November 12, 2022 7:59pm Note Date/Time November 12, 2022 8:0 0am [facility] Medical Records Department [address] [place] [address] Progress Note - Hospitalist 11/12/22 0800 MR#: [id number] Acct: [id number] Name: AFSHIN ZEE Rep #:[id number] : 1955 67 From: Felecia Burns MD PCP: Dr. Jaci Arroyo MD Status:AD M IN Location: [address] 1 Reason for Visit Reason for [...] (Auto) 85.8 H, Lymph % (Auto) 5.8L, [place]kin % (Auto) 7.5, Eos % (Auto) 0.1, [...] (Auto) 83.8 H, Lymph % (Auto) 8.9L, [place] % (Auto) 4.8, Eos % (Auto) 1.8, [...] 30 mins Charges/Coding Visit Charges Inpatient E&M: 23827 Subs Hosp L2 11/12/221958 <Electronically signed by Felecia Burns MD> Cosigner Signature (if applicable): CC: ~ Signed [facility] Work Phone: 1(347) 215-471604-09-[address] Lin [facility] November 11, 2022 5:27pm Note Date/Time November 11, 2022 1:32 pm [facility] Medical Records Department [address] [place] [address] Emergency Department Summary 11/11/22 MR#: [id number] Acct: [id number] Name: AFSHIN ZEE Rep #:[id number] : 1955 67 From: Carlton Toledo PCP: Dr. Jaci Arroyo MD Status:AD M IN Location: [place] [address] HPI History of Present Illness Chief Complaint: [...] nursing other does ambulate with a cane. 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 tract infection Mixed obstructive and restrictive ventilatory defect Respiratory failure Sepsis Smoker Stroke/cerebrovascular accident Home Medications famotidine 20 mg tablet 20 mg PO QHS PRN PRN Gastric Reflux 12/21/16 [History Last Taken 08/15/22] baclofen 10 mg tablet 5 mg PO TID 02/05/17 [Rx Last Taken 08/16/22] multivitamin,en-yujl-wtrpadcm (Complete Multivitamin tablet) 1 tab PO DAILY [...] 85.8 H Lymph % (Auto) 5.8 L Aitkin % (Auto) 7.5 Eos % (Auto) 0.1 [...] MCHC RDW Std Deviation RDW Coeff of Makayla Plt Count MPV Immature Gran % (Auto) Neut % (Auto) Lymph % (Auto) Aitkin % (Auto) Eos % (Auto) Baso % [...] Hypoxia, Aphasia Disposition Disposition: Acute Care Hospital [facility] Discharge Date/Time: 11/11/22 15:00 What to do if you have Problems For any increased pain, shortness of breath, bleeding, nausea or vomiting, chestpain, or any unexpected problems, contact your Primary Care Provider. Call [facility] ([phone]) or report to the closest Emergency Room. Call 911 if necessary. 11/11/22 172 <Electronically signed by Carlton Toledo> Cosigner Signature (if applicable): CC: Dr. Jaci Arroyo MD ~ Signed [facility] Work Phone: [phone]) 797-490804-09-2023 History and physical note Author Dr. Escalante [facility] November 11, 2022 3:32pm Note Date/Time November 11, 2022 2:34 pm [facility] Medical Records Department [address] [place] [address] H&P Exam - Hospitalist 11/11/22 1427 MR#: [id number] Acct: [id number] Name: AFSHIN ZEE Rep #:[id number] : 1955 67 From: Arti Escalante MD PCP: Dr. Jaci Arroyo MD Status:AD M IN Location: [facility] GIZ162- 1 HPI - General General Date of [...] to community-acquired pneumonia with concern for aspiration. 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 tract infection Mixed obstructive and restrictive ventilatory defect Respiratory failure Sepsis Smoker Stroke/cerebrovascular accident Home Medications famotidine 20 mg tablet 20 mg PO QHS PRN PRN Gastric Reflux 12/21/16 [History Last Taken 08/15/22] baclofen 10 mg tablet 5 mg PO TID 02/05/17 [Rx Last Taken 08/16/22] multivitamin,pe-vpas-kocznpks (Complete Multivitamin tablet) 1 tab PO DAILY [...] (Auto) 85.8 H, Lymph % (Auto) 5.8L, [place] % (Auto) 7.5, Eos % (Auto) 0.1, [...] Patient elects to be full code. Total vlbx-ew-wtsq time 17 minutes. Total time spent on evaluation and management of patient, reviewing chart and specialist notes, discussing plan with patient and his , discussion with nursing and ancillary staff as well as documentation: 65 mins Charges/Coding Visit Charges Inpatient E&M: 63480 Init Hosp L2 Procedures Hospitalists Procedures: 35185 Advncd Care Plan 30 Min 11/11/22 1532 <Electronically signed by Arti Escalante MD> Cosigner Signature (if applicable): CC: Dr. Jaci Arroyo MD; Dr. Arti Escalante MD~ Signed [facility] Work Phone: 1(324) 145-589704-07-2023 Miscellaneous Notes* Telephone Encounter - Desmond Ambriz PA-C - 11/09/2022 2:52 PM EDT Please, notify patient the urine culture was negative Culture 10,000 -<50,000 CFU/ml Mixed microbiota Abnormal Thank you, Desmond Ambriz MPAS, AL, JEREMY * Telephone Encounter - Sarika Mackey Ma - 11/09/2022 11:26 AM EDT Patients called in stating she brought in a urine specimen for the patient and is waiting to hear results. Please contact , Eli, back at [phone]. documented in this encounterPremier Health Miami [facility] Hospital [facility]04-04-2023 Miscellaneous Notes* Telephone Encounter - Jaci Arroyo MD - 11/06/2022 3:51 PM EDT Noted Jaci Arroyo MD * Telephone Encounter - Jayde Laughlin RN - 11/06/2022 3:29 PM EDT Jessie CABRERA calling from [facility] to report plan of care for [...] needed Jayde Laughlin RN documented in this encounterPremier Health Miami Valley Hospital South04-04-2023 Miscellaneous Notes* Telephone Encounter - Mariano Beckman APRN.CNP - 11/06/2022 11:02 AM EDT The following approved medication requests have been transmitted electronically. Requested Prescriptions Pending Prescriptions Disp Refills traZODone (DESYREL) 50 mg tablet [Pharmacy Med Name: TRAZODONE 50 MG TABLET] 30 tablet 3 Sig: take 1 tablet by mouth at bedtime Mariano Beckman APRN.ESTELLA documented in this encounterPremier Health Miami Valley Hospital South04-03-2023 Miscellaneous Notes* Telephone Encounter - Jaci Arroyo MD - 11/05/2022 2:14 PM EDT Noted and agree Jaci Arroyo MD * Telephone Encounter - Loida Vazquez LPN - 11/05/2022 2:01 PM EDT Nayeli Whitmore from [facility] Home Health calling with ST plan of care, 1 visit weekly for 2 weeks, pending insurance approval. documented in this encounterPremier Health Miami Valley Hospital South04-03-2023 Miscellaneous Notes* Telephone Encounter - Monica Cruz Ma - 11/05/2022 1:24 PM EDT Kylie notified and voiced understanding. Mnoica Cruz Ma * Telephone Encounter - Jaci Arroyo MD - 11/05/2022 1:19 PM EDT I would suggest holding the metoprolol and see if his heart rate improves Jaci Arroyo MD * Telephone Encounter - Jayde Laughlin RN - 11/05/2022 12:56 PM EDT Nayeli PERSAUD from [facility] Calls and states that patient's heart rate continues to be out of parameters. 11 AM 117/57 45 12:15 PM 123/56 45 Patient continues to be asymptomatic. If provider wants to change anything, please give Kylie High RN Clinical Oil Deliverer [facility] call back at [phone]. Jayde Laughlin RN documented in this encounterPremier Health Miami [facility]03-30-2023 Miscellaneous Notes* Telephone Encounter - Monica Cruz [...] 11/01/2022 9:29 AM EDT Nayeli Lyon with [facility] Speech called to let you know she [...] in medication or further instructions please call [phone] and ask for Kylie High, Clinical Oil Deliverer. Therese Paz LPN documented in this encounterPremier Health Miami [facility]03-28-2023 Miscellaneous Notes* Telephone Encounter - Jaci Arroyo MD - 10/30/2022 4:20 PM EDT Noted and agree Jaci Arroyo MD * Telephone Encounter - Amaya Kessler RN - 10/30/2022 4:05 PM EDT [facility] OT calling with plan of care for patient. OT plans to see patient 1x/week for 1 week, then 2x/week for 3 weeks for ADL's, home exercises and transfers. Valentine also reports a delay of care for patient in getting visit completed today. No call back needed if provider agreeable. Amaya Kessler RN documented in this encounterPremier Health Miami Valley [facility]03-20-2023 Miscellaneous Notes* Telephone Encounter - Rachel Buckley [...] - 10/22/2022 9:37 AM EDT Ginger with [facility] calls to request a verbal order to change the date of ST eval d/t having to switch speech therapist. Please all verbal order to [phone] if provider agrees. Raiza John RN documented in this encounterPremier Health Miami Valley [facility]03-20-2023 Miscellaneous Notes* Telephone Encounter - Kia Waters LPN - 10/22/2022 10:15 AM EDT Received records from [facility]: Home Health Certification. Informational only. Scanned to Jimdo via [employer]. Kia Waters LPN documented in this encounterPremier Health Miami Valley [facility] South03-13-2023 Instructions* Patient Instructions* Robin Johansen MD - 10/15/2022 4:07 PM EDT We will repeat fasting blood work documented in this encounterPremier Health Miami Valley Hospital South03-13-2023 History of Present illness Narrative* Robin Johansen MD - 10/15/2022 4:00 PM EDT Images from the original note were not included. [facility] SECTION OF REGIONAL CARDIOLOGY Cardiology ([facility]) [address] [id number] OUTPATIENT VISIT DATE 09/03/2022 PRIMARY CARE PHYSICIAN: Jaci Arroyo [address] [place] [address] HISTORY OF PRESENT ILLNESS: Mr. 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 Rinse mouth [...] foot brace for right leg. Send to [email or web address]. Dx: I63.9 COMPOUNDED PRESCRIPTION EMBER WALKER DX [...] aVF. Nonspecific diffuse ST-T wave changes Echocardiogram [facility] 12/16/2020: Left ventricular systolic function is normal [...] AND RECOMMENDATIONS: 1. Coronary artery disease involving [place]et coronary artery of unal[place]et heart without angina pectoris- ICD9: 414.01, ICD10: [...] I65.22 Robin Johansen MD documented in this encounterPremier Health Miami [facility]03-13-2023 Miscellaneous Notes* Telephone Encounter - Kia Waters [...] are in) Thank you, Desmond Ambriz MPAS, AL, JEREMY * Telephone Encounter - Lora James RN - 10/15/2022 9:10 AM EDT Eli Afshin[facility] called. Eli brought in a urine sample on Saturday for a urine culture. Afshin is very uncomfortable and Eli would like to know the results. Lora James RN documented in this encounterPremier Health Miami [facility]03-13-2023 Miscellaneous Notes* Telephone Encounter - Kia Waters [...] patient. Mayela Mcgrath LPN documented in this encounterPremier Health Miami Valley Hospital [facility]03-10-2023 Miscellaneous Notes* Telephone Encounter - Raiza John RN - 10/12/2022 8:51 AM EST Call placed to [facility] and spoke to Kylie. Verbal orders given as requested below. Raiza John RN * Telephone Encounter - Monica Cruz Ma - 10/11/2022 5:09 PM EST [facility] office closed. Will call back tomorrow Monica Cruz Ma October 11, 2022 5:09 PM * Telephone Encounter - Jaci Arroyo MD - 10/11/2022 5:01 PM EST OK for orders as requested: Oxygen is utilized at 5 LPM at bedtime. Budesonide 160-4.5mcg/actuation 2 puffs daily. Jaci Arroyo MD * Telephone Encounter - Raiza John RN - 10/11/2022 3:24 PM EST Kylie with [facility] calls to request a verbal order for oxygen and budesonide inhaler that patient is on at home. Oxygen is utilized at 5 LPM at bedtime. Budesonide 160-4.5mcg/actuation 2 puffs daily. Noted budesonide in hospital paperwork from 08/27/2022 but order said 2 puffs twice daily. Please review and advise, Raiza John RN documented in this encounterPremier Health Miami [facility]03-03-2023 Miscellaneous Notes* Telephone Encounter - Rachel Buckley Ma - 10/05/2022 4:01 PM EST Order, demographic and recent OV notes have been faxed to [facility] at [phone]. Rachel Buckley Ma * Telephone Encounter - Jaci Arroyo MD - 10/05/2022 3:56 PM EST Order printed Jaci Arroyo MD * Telephone Encounter - Rachel Buckley Ma - 10/05/2022 2:[address] Arroyo can you file new order that says [facility] and not [facility] so I can fax to [facility]. Rachel Buckley Ma * Telephone Encounter - Pati Hare LPN - 10/05/2022 2:14 PM EST Patients called and would like the referral sent to [facility]. * Telephone Encounter - Pati Hare LPN - 10/05/2022 2:03 PM EST [facility] calling, they are not able to accept referral for the Pt, OT, and Speech Therapy. They do not accept his insurance. documented in this encounterPremier Health Miami [facility]03-03-2023 Miscellaneous Notes* Telephone Encounter - Jaci Arroyo MD - 10/05/2022 3:35 PM EST Noted; see other phone note Jaci Arroyo MD * Telephone Encounter - Loida Vazquez LPN - 10/05/2022 2:53 PM EST Jada from [facility] calling to notify PCP that patient needs to find a new home healthagency. Patient has fired all of the clinicians that have been sent to the home, and also 2 Speech Therapists. is very difficult to schedule times for them to go to the home. documented in this encounterPremier Health Miami [facility]03-02-2023 Miscellaneous Notes* Telephone Encounter - Monica Cruz [...] , reports she is not happy with [facility]. Reports she has had nothing but issues with them and patient has not had ST for 2.5 months. Asking if pcp would send order for [facility]. Reportspatient had them before and they were wonderful. does not know phone or fax number. Found in previous encounter, fax # [phone]. Please advise . also reports patient was in a [facility] recently for respite care while was there for rehab. documented in this encounterPremier Health Miami Valley Hospital [facility]02-28-2023 Miscellaneous Notes* Telephone Encounter - Laura Fajardo RN - 10/02/2022 8:15 AM EST Spoke with pt's spouse. Notified of test results. She voices understanding and is agreeable to notify pt. Laura Fajardo RN * Telephone Encounter - Eliana Olvera LPN - 10/02/2022 8:11 AM EST Left message for to call [facility] for test results. [facility] phone number provided. Eliana Olvera LPN * Telephone Encounter - Eliana Olvera LPN - 10/02/2022 7:57 AM EST ----- Message from Anushka Thomas APRN.CNP sent at 10/02/2022 7:52 AM EST ----- Please call the patient and report lab results revealed renal function and electrolytes are all within normal limits. Anushka Thomas APRN.ESTELLA documented in this encounterPremier Health Miami [facility]02-24-2023 Miscellaneous Notes* Telephone Encounter - Kylie Downey [...] you! Gaye Rowley RN documented in this encounterPremier Health Miami [facility]02-14-2023 Miscellaneous Notes* Telephone Encounter - Jaci Arroyo MD - 09/18/2022 9:35 AM EST Noted Jaci Arroyo MD * Telephone Encounter - Dixie Naranjo RN - 09/17/2022 4:53 PM EST Tanvi @ [facility] Home [facility] calling to let PCP know patient was due to have BMP drawn this week by homehealth but he is in respite care due to had surgery. Tanvi says was not willing to say where patient is or when he'll be home for [facility] to resume care. Dixie Naranjo RN documented in this encounterPremier Health Miami [facility]02-13-2023 Miscellaneous Notes* Telephone Encounter - Kia Watesr LPN - 09/17/2022 12:26 PM EST Called Eli. Verified name and date of . Informed order given to Jocelyn at [facility] of order. Patient admitted there Saturday with [...] LPN - 09/17/2022 12:24 PM EST Called [facility], spoke with nurse parts and service manager, Jocelyn and informed of order. States patients [...] that both herself and patient are at [facility] and is asking that prescription be transferred to [place]. Requesting phone call once Rx has been transferred. documented in this encounterPremier Health Miami [facility]02-09-2023 Miscellaneous Notes* Telephone Encounter - Loida Vazquez LPN - 09/13/2022 10:58 AM EST Charla from [facility] [place] calling patient son is trying to get patient placed quickly tonight, is currently in another facility for rehab after knee replacement surgery. Requesting copy of last office notes, medication list, and face sheet be faxed to [phone]. Printed items requested and faxed. documented in this encounterPremier Health Miami [facility]02-06-2023 Miscellaneous Notes* Telephone Encounter - Jaci Arroyo MD - 09/10/2022 5:03 PM EST OK to refill as ordered Jaci Arroyo MD * Telephone Encounter - Jayde Laughlin RN - 09/10/2022 4:08 PM EST Patient's Eli calls and states that she is having surgery tomorrow. Patient's physical therapy, occupational therapy, and speech therapy is on hold while she is recovering. senior care is still coming out 1 time a week. Jayde Laughlin RN documented in this encounterPremier Health Miami Valley Hospital [facility]02-03-2023 History of Present illness Narrative* Jaci Arroyo [...] referred by this office. Pt seen at [facility] ED due to sob and cough. Pt [...] Problem Relation Age of Onset Heart Mother OR in her 70s, pacemaker Diabetes Mother Stroke [...] (FLONASE) 50 mcg/actuation nasal spray Use 1 Premium in each nostril twice daily. Rinse mouth [...] foot brace for right leg. Send to [email or web address]. Dx: I63.9 COMPOUNDED PRESCRIPTION EMBER WALKER DX [...] call Jaci Arroyo MD documented in this encounterPremier Health Miami Valley Hospital [facility]02-03-2023 Miscellaneous Notes* Telephone Encounter - Katelynn Reyez RN - 09/07/2022 9:06 AM EST Spoke to . Voices understanding. States she will try to make arrangements for Afshin to come in in 2 weeks for BMP. Katelynn Reyez RN * Telephone Encounter - Eliana Green APRN.CNP - 09/07/2022 7:20 AM EST Blood pressures are acceptable. Improved from 150 systolic reading in office with Dr. Joahnsen last week. Continue current medication regimen. Please [...] you Katelynn Reyez RN documented in this encounterPremier Health Miami [facility]02-02-2023 Miscellaneous Notes* Telephone Encounter - Camila Weaver [...] provided. Camila Weaver RN documented in this encounterPremier Health Miami [facility]01-31-2023 Miscellaneous Notes* Telephone Encounter - Katelynn Reyez [...] order. Christina Ozuna MA documented in this encounterPremier Health Miami Valley Hospital South01-30-2023 Miscellaneous Notes* Addendum Note - Robin Johansen MD - 09/03/2022 12:41 PM ESTAddended by: ROBIN JOHANSEN on: 09/03/2022 12:41 PM Modules accepted: Orders documented in this encounterPremier Health Miami [facility] Hospital [facility]01-30-2023 Instructions* Patient Instructions* Robin Johansen MD - 09/03/2022 11:26 AM EST We are starting on a new medication Losartan 25 mg once per day Repeat blood work in 2 weeks documented in this encounterPremier Health Miami Valley Hospital South01-30-2023 History of Present illness Narrative* Robin Johansen MD - 09/03/2022 11:00 AM EST Images from the original note were not included. [facility] VASCULAR INSTITUTE SECTION OF REGIONAL CARDIOLOGY Cardiology ([facility]) [address] [id number] OUTPATIENT VISIT DATE 09/03/2022 PRIMARY CARE PHYSICIAN: Jaci Arroyo [address] [place] [address] HISTORY OF PRESENT ILLNESS: Mr. 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 Rinse mouth [...] foot brace for right leg. Send to [email or web address]. Dx: I63.9 COMPOUNDED PRESCRIPTION EMBER WALKER DX [...] aVF. Nonspecific diffuse ST-T wave changes Echocardiogram [facility] 12/16/2020: Left ventricular systolic function is normal [...] AND RECOMMENDATIONS: 1. Coronary artery disease involving [place] coronary artery of un[place]et heart without angina pectoris- ICD9: 414.01, ICD10: [...] I65.22 Robin Johansen MD documented in this encounterPremier Health Miami [facility]01-26-2023 Miscellaneous Notes* Telephone Encounter - Rachel Buckley [...] 09/03. Dixie Naranjo RN documented in this encounterPremier Health Miami Valley Hospital South01-25-2023 Miscellaneous Notes* Telephone Encounter - Jessie Harmon [...] any other questions. Thank you Jessie Harmon APRN.LAUNDRY OPERATOR WASH ROOM * Telephone Encounter - Jayde Laughlin RN - 08/29/2022 12:41 PM EST Patient's calls and states that patient's blood pressure today is 149/67, Pulse 74, O2 96. Patient is asymptomatic. asking if she should be concerned about blood pressure? Please review and advise, Jayde Laughlin RN documented in this encounterPremier Health Miami Valley [facility]01-19-2023 Miscellaneous Notes* Telephone Encounter - Lacy Kaur - 08/23/2022 8:16 AM EST Left vm pt needs an appt with Dr. Ashley for circ consultation. Ref by Varinder Ambriz. Radha documented in this encounterPremier Health Miami Valley Hospital South01-17-2023 Instructions* Patient Instructions* Desmond Ambriz PA-C - 08/21/2022 3:46 PM EST Urine Culture on 08-18-2022 URC Proteus mirabilis [place] Count 80,000-100,000 Proteus mirabilis: REACTION Ampicillin Islt [...] Islt KATARINA <=20 S documented in this encounterPremier Health Miami Valley Hospital South01-17-2023 History of Present illness Narrative* Desmond Ambriz PA-C - 08/21/2022 3:15 PM EST Images from the original note were not included. [facility] NEW CONSULT PATIENT CLINIC [...] follow up from recent hospital admission at [facility] The patient reports he was found to have UTI with Proteus, no treatment so far, he will start Ampicillin 500 mg and will get a post-treatment urine culture Sep 07 He also has long standing Balanitis and will continue using Lotrisone Cream topically, I will get him a Consult for possible Circumcision with Dr. iMchel at [place]. LUTS: DYSURIA: yes URGENCY: Yes FREQUENCY:6 per [...] (FLONASE) 50 mcg/actuation nasal spray Use 1 Premium in each nostril twice daily. Rinse mouth [...] foot brace for right leg. Send to [email or web address]. Dx: I63.9 COMPOUNDED PRESCRIPTION EMBER WALKER DX [...] Problem Relation Age of Onset Heart Mother OR in her 70s, pacemaker Diabetes Mother Stroke Father other (AAA) Father other (CAD) Brother Hypertension Brother SOCIAL HISTORY: Social Connections: Moderately Integrated Frequency of Communication with Friends and Family: Once a week Frequency of Social Gatherings with Friends and Family: Once a week Attends Zoroastrian Services: 1 to 4 times per year [...] Ambriz, NIKHIL, [place], PAAlfaC documented in this encounterPremier Health Miami [facility] Hospital [facility]01-16-2023 Miscellaneous Notes* Telephone Encounter - Monica Cruz Ma - 08/20/2022 8:52 AM EST Eli, pt notified, states pt is schedule to see Urologist Desmond Ambriz tomorrow. Monica Cruz Ma * Telephone Encounter - Loida Vazquez LPN - 08/20/2022 8:[address] [facility] Will have to try another Urology office. documented in this encounterPremier Health Miami Valley Hospital South01-13-2023 Miscellaneous Notes* Telephone Encounter - Rachel Buckley Ma - 08/17/2022 8:49 AM EST Referral paperwork has been faxed to [phone] La's office. Eli called and notified. Will make sure they take pt's insurance. If not, will switch to [facility]. Rachel Buckley Ma * Telephone Encounter - Jaci Arroyo MD - 08/16/2022 4:50 PM EST OK for consult as ordered Jaci Arroyo MD * Telephone Encounter - Milan Brunson RN - 08/16/2022 4:09 PM EST , Eli, reports patient is in [facility] under observation. Reports the doctor on the floor informed , patient should see a urologist, for problem with penis. Reports patient is not circumcised andhas problems with reddness in the area. Reports the cream pcp gave him is not helping. asking pcp to send referral to Dr. La, urologist at [facility]. documented in this encounterPremier Health Miami [facility]01-12-2023 Miscellaneous Notes* Telephone Encounter - Mariano Beckman [...] and advise. Amaya Fry documented in this encounterPremier Health Miami Valley Hospital South01-04-2023 Miscellaneous Notes* Telephone Encounter - Kylie Downey RN - 08/08/2022 2:00 PM EST Spoke to , Eli and notified pt should be done by pickle cutter time of 12:20pm. Verbalized understanding. * Telephone Encounter - Gaye Rowley RN - 08/08/2022 12:28 PM EST Pr calling about appointment on , Pt is getting transportation by provider services. Inquiring as to whether appointment will be over and patient can be picked up by 12:20 p.m? Please contact Pt Eli at [phone] and advise of kyler of appt so she can arrange proper transportation time for patient.Gaye Rowley RN documented in this encounterPremier Health Miami [facility]01-03-2023 Miscellaneous Notes* Telephone Encounter - Rachel Buckley [...] 08/07/2022 3:51 PM EST Casi, nursing with [facility] called requesting verbal order for OT due to CVA , right side weakness. She felt this needed to be added. Please advise Casi. Therese Paz LPN documented in this encounterPremier Health Miami Valley Hospital South12-23-2022 Miscellaneous Notes* Telephone Encounter - Christina Ozuna MA - 07/27/2022 10:06 AM EST Order fax[facility] to [facility] Yesika. Christina Ozuna MA * Telephone Encounter [...] Pended but needs diagnoses. documented in this encounterPremier Health Miami Valley Hospital South12-20-2022 Miscellaneous Notes* Telephone Encounter - Jaci Arroyo MD - 07/24/2022 4:18 PM EST Noted Jaci Arroyo MD * Telephone Encounter - Loida Vazquez LPN - 07/24/2022 2:19 PM EST Funmilayo from [facility] calling to report missed ST appt, patient cancelled appt for todaysaid was not up to appt. documented in this encounterPremier Health Miami Valley Hospital South12-12-2022 Miscellaneous Notes* Telephone Encounter - Raiza John RN - 07/16/2022 3:[address] with [facility] calls to let provider know that patient was seen for skilled recert into [facility] services. Elida reports this to be FYI with no call back needed. Raiza John RN documented in this encounterPremier Health Miami Valley Hospital South11-30-2022 Instructions* Patient Instructions* Jessie Harmon APRN.CNP - 07/04/2022 6:02 PM EST Increase trazodone to 150 mg at bedtime. Continue physical and speech therapy as ordered. Keep scheduled appointments with pulmonology. Recommend considering consult with sleep medicine if difficulty continues with CPAP fit. Follow-up as needed. documented in this encounterPremier Health Miami Valley Hospital South11-30-2022 History of Present illness Narrative* Jessie Harmon [...] agrees to the visit: Yes Patient Location: [facility] Afshin Zee is a 66 year [...] Problem Relation Age of Onset Heart Mother OR in her 70s, pacemaker Diabetes Mother Stroke [...] (FLONASE) 50 mcg/actuation nasal spray Use 1 Premium in each nostril twice daily. Rinse mouth [...] foot brace for right leg. Send to [email or web address]. Dx: I63.9 COMPOUNDED PRESCRIPTION EMBER WALKER DX [...] discussed and patient voices understanding. Jessie Harmon APRN.LAUNDRY OPERATOR WASH ROOM Total appointment time on phone with patient = 21-30 minutes This note was partially generated using Eventful voice recognition system. Note was reviewed for accuracy. There may be minor misspellings or grammar miscues with [employer] voice recognition. documented in this encounterPremier Health [facility]11-04-2022 Miscellaneous Notes* Telephone Encounter - Monica Cruz [...] used for this study. Reports [facility]. Mcgrath [facility], [facility], has those results but has not yet advised her. Reports patient had a home sleep test done 4 mths ago, and the results of this one are worse. Please phone , Eli, with reply- [phone] * Telephone Encounter - Loida Vazquez LPN [...] you. Loida Vazquez LPN documented in this encounterPremier Health Miami [facility] South10-27-2022 Miscellaneous Notes* Telephone Encounter - Jaci Arroyo MD - 05/31/2022 9:51 AM EDT Noted Jaci Arroyo MD * Telephone Encounter - Loida Vazquez LPN - 05/25/2022 4:54 PM EDT Funmilayo from [facility] calling to report missed visit for ST today, and patient were bothnot feeling well today so cancelled visit. documented in this encounterPremier Health Miami [facility] South10-06-2022 Miscellaneous Notes* Telephone Encounter - Monica Cruz Ma - 05/10/2022 11:42 AM EDT Order for Speech Therapy and OV faxed to [facility] at [phone] Monica Cruz Ma * Telephone Encounter - Rachel Buckley Ma - 05/08/2022 10:19 AM EDT I've retried sending order within [facility] today. Will see if this goes through. Rachel Buckley Ma * Telephone Encounter - Dimple Agustin LPN - 05/07/2022 11:17 AM EDT Pt's calls to report that [facility] is saying they have not received orders for speech therapy.Eli requested the orders be re-faxed to : [phone]. This nurse has tried to fax orders three times. Fax does not go through stating line is busy. Left a message on pt's vm stating same. Dimple Agustin LPN documented in this encounterPremier Health Miami [facility]10-06-2022 History of Present illness Narrative* Jaci Arroyo MD - 05/10/2022 10:40 AM EDT Chief Complaint Follow up; [id number] visit for home therapy HPI: This Team [...] face visit to get Speech therapy through [facility]. Insurance required. He has been getting speech [...] Problem Relation Age of Onset Heart Mother OR in her 70s, pacemaker Diabetes Mother Stroke [...] (FLONASE) 50 mcg/actuation nasal spray Use 1 Premium in each nostril twice daily. Rinse mouth [...] foot brace for right leg. Send to [email or web address]. Dx: I63.9 COMPOUNDED PRESCRIPTION EMBER WALKER DX [...] ICD10: I63.9 4. Coronary artery disease involving [place]et coronary artery of unalakleet heart without angina pectoris- ICD9: 414.01, ICD10: I25.10 5. Essential hypertension - ICD9: 401.9, ICD10: I10 6. Paroxysmal atrial fibrillation (HCC) - ICD9: 427.31, ICD10: I48.0 7. Anxiety - ICD9: 300.00, ICD10: F41.9 8. Dysphasia - ICD9: 784.59, ICD10: R47.02 Speech Therapy Follow up prn I agree with the Chief Complaint, ROS, and Past Histories independently gathered by the clinical technical sales support manager and the remaining scribed note accurately describes my personal service to the patient. Jaci Arroyo MD The documentation for this note was completed by Monica Cruz Ma acting as scribe for Jaci Arroyo MD. May 10, 2022 10:11 AM. Monica Cruz Ma documented in this encounterPremier Health Miami [facility]10-03-2022 Miscellaneous Notes* Telephone Encounter - Mariano Beckman [...] you. Raiza John RN documented in this encounterPremier Health Miami Valley [facility] South10-03-2022 Miscellaneous Notes* Telephone Encounter - Raiza John RN - 05/07/2022 8:57 AM EDT Opened in error. Raiza John RN documented in this encounterPremier Health Miami [facility]09-29-2022 Miscellaneous Notes* Telephone Encounter - Monica Cruz [...] patient's speech therapy ended on 03/30/22 with [facility]. Asking if another ST order can be placed and faxed to to them at FAX#: [phone]- would like patient to have additional therapy and she states Medicare will cover it. Please call with update. Thank you. documented in this encounterPremier Health Miami [facility]09-15-2022 History of Present illness Narrative* Sabiha Stevens MD - 04/19/2022 10:34 AM EDT Afshin Zee is a 66 year old male here for evaluation of his peripheral vascular disease. He is a prior pt of SHERYL in our [place] office and of [facility] before that. He was last seen [...] R 50-69% stenosis. He follows with his manager product support for this. Today, His symptoms include: Claudication No Location: Distance: Rest pain No Tissue loss No Location: He has no issues or complaints. They would like a referral to [email or web address] to try and get a better brace [...] (FLONASE) 50 mcg/actuation nasal spray Use 1 Premium in each nostril twice daily. Rinse mouth [...] foot brace for right leg. Send to [email or web address]. Dx: I63.9 1 Device 0 COMPOUNDED PRESCRIPTION [...] with more than 50% of the total [id number] time of the visit in counseling / coordination of care. documented in this encounterPremier Health Miami [facility]09-09-2022 Miscellaneous Notes* Telephone Encounter - Raiza John [...] the night. then reports that she believes french translator has told patient he can do this any ways so disregard request. TE not forwarded as determined what patient would be doing with out provider response. Raiza John RN documented in this encounterPremier Health Miami [facility]09-08-2022 Miscellaneous Notes* Telephone Encounter - Jayde Laughlin [...] if pt to take multivitamin made by [employer]. Pt is not to have anything with aspirin in it per . Please advise. Therese Paz LPN documented in this encounterPremier Health Miami Valley [facility]08-19-2022 Miscellaneous Notes* Telephone Encounter - Rachel Buckley [...] pcp prescribed and also chamosyn ointment the [facility] gave her. The chamosyn ointment is hypoallergenic for sensitive skin. Ask ing pcp which one should she use for this? Reports patient is not circumcised, which makes it worse. Please advise . documented in this encounterPremier Health Miami Valley [facility] South08-05-2022 Miscellaneous Notes* Telephone Encounter - Monica Cruz [...] 9:27 AM EDT Unique with [facility] calling to ask for verbal order to authorize the home health care nurse to omit visit this week and see patient twice next week. Please call Unique with order at [phone] ext [phone]. Unique also requesting for PCP office to disregard the missed visit notification that was faxed to office today. Patient will not have a missed visit, but will be seen twice next week instead. Thank you. documented in this encounterPremier Health Miami [facility] South2022 Miscellaneous Notes* Addendum Note - Jorge Cardoso [...] and lower scopes with Dr. Cardoso in [place] on 03/26. Per patient stated he does not wish to have this done at this time. Patient did state he would like to do a cologaurd test instead. Orders being cancelled. Can we place the cologaurd order for this patient instead for lab pickle cutter Thank you in advance Tish documented in this encounterPremier Health Miami [facility] South2022 Miscellaneous Notes* Telephone Encounter - Manisha Vasquez - 03/05/2022 3:46 PM EDT LMOM to schedule Dr Kaplan New Patient Annual F/UP for PAD with No Testing *Dr Avila Patient 2019, Dr Naylor Patient 2018*(Patient wants Yesika) documented in this encounterPremier Health Miami [facility]07-18-2022 Miscellaneous Notes* Telephone Encounter - Mariano Beckman [...] of Last Labs: 10/02/2021 documented in this encounterPremier Health Miami [facility]06-29-2022 Miscellaneous Notes* Telephone Encounter - Mariano Beckman [...] 18 02/01/2021 14 Please advise. Thank you. Khrsi Gutierrez RN documented in this encounterPremier Health Miami [facility]06-22-2022 History of Present illness Narrative* Jaci Arroyo [...] Problem Relation Age of Onset Heart Mother OR in her 70s, pacemaker Diabetes Mother Stroke [...] (FLONASE) 50 mcg/actuation nasal spray Use 1 Premium in each nostril twice daily. Rinse mouth [...] foot brace for right leg. Send to [email or web address]. 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 Rachel Buckley Ma documented in this encounterPremier Health Miami [facility]06-16-2022 Miscellaneous Notes* Telephone Encounter - Jaci Arroyo MD - 01/18/2022 4:55 PM EDT Noted Jaci Arroyo MD * Telephone Encounter - Loida Vazquez LPN - 01/18/2022 12:14 PM EDT Maxine from [facility] calling patient missed his home health visit today. Nurse was unable to reach him or son. documented in this encounterPremier Health Miami Valley Hospital South05-31-2022 Miscellaneous Notes* Telephone Encounter - Rachel Buckley Ma - 01/02/2022 1:11 PM EDT Office received fax from pt's insurance approving the Rx from 12/03/21-01/02/23. Routed to scanning. Message routed to PA Nurse to make her aware. Rachel Buckley Ma * Telephone Encounter - Kimo Adamson Ma - 01/02/2022 11:48 AM EDT Prior Authorization has been completed online at [employer] for lorazepam, will await response. [id number] Please keep encounter open until final decision has been received and documented from insurance company. Kimo Adamson MA * Telephone Encounter - Kim Person LPN - 01/02/2022 11:03 AM EDT Prior Authorization Documentation Prior authorization requested for the following medication: Medication: Lorazepam 0.5mg Provider: Dr Arroyo Insurance Company Name: [facility] [employer] Phone number: [phone] or [phone] Patient ID number: [id number] Pharmacy Name: [facility] Telephone number: [phone] Kim Person LPN documented in this encounterPremier Health Miami [facility]05-05-2022 Miscellaneous Notes* Telephone Encounter - Sharon Hinojosa - 12/07/2021 8:57 AM EDT Patient rescheduled and moved to 03/26 with Walker in [place] * Telephone Encounter - Lora James RN - 12/06/2021 3:56 PM EDT Afshin's , Eli zaragoza ([phone]). Eli states that Afshin is scheduled for an EGD and colonoscopy on 01/22/22 and they need to reschedule that to a different day. Eli states that she has lefta message, but has not heard back. According to his appointment tab, he is scheduled for 12/25/2021, but the patient's states that she spoke with the airline station agent and it had been moved to 01/22/2022. Lora James RN documented in this encounterPremier Health Miami [facility]04-29-2022 Miscellaneous Notes* Telephone Encounter - Monica Cruz [...] 1:45 PM EDT Kandy from [facility] calling opened patient case for services. is asking for Physical Therapy order also. Please call with verbal order. Please advise documented in this encounterPremier Health Miami [facility]04-20-2022 Miscellaneous Notes* Telephone Encounter - Rachel Buckley Ma - 11/22/2021 1:22 PM EDT Completed and faxed to number below. Rachel Buckley Ma * Telephone Encounter - Jaci Arroyo MD - 11/22/2021 1:07 PM EDT Order signed Jaci Arroyo MD * Telephone Encounter - Rachel Buckley Ma - 11/22/2021 12:48 PM EDT Office received fax from [facility], stating they need new signed orders from PCP due to pt having a change in insurance. Please review form and complete. Once completed fax back to [phone], Myra Oro LPN. Rachel Buckley Ma documented in this encounterCleveland [id number] History of Present illness Narrative* Jaci Arroyo [...] of 345; HCTZ added. Pulm: Follows with Paste Up Artist Dr. Ellis at [facility]. Pt had Sleep study test done in [...] Problem Relation Age of Onset Heart Mother OR in her 70s, pacemaker Diabetes Mother Stroke [...] (FLONASE) 50 mcg/actuation nasal spray Use 1 Premium in each nostril twice daily. Rinse mouth [...] foot brace for right leg. Send to [email or web address]. 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 Monica Cruz Ma * Telephone Encounter - Jaci Arroyo MD - 10/31/2021 2:07 PM EDT Noted Rx for splint printed Jaci Arroyo MD * Telephone Encounter - Jayde Laughlin RN - 10/31/2021 11:53 AM EDT Ramandeep OT from [facility] calls to report that she does not think that patient needs OT anymore.Patient is doing well and he is at baseline. Ramandeep reports that patient would benefit from having a new splint for his right hand. Ramandeep asking ifprovider can write an order for right resting hand splint. Ramandeep states this order can be faxed to [facility] . Please review and advise, Jayde Laughlin RN documented in this encounterPremier Health Miami [facility]03-22-2022 Miscellaneous Notes* Telephone Encounter - Alvin Galindo - 10/24/2021 4:27 PM EDT 12-25-2021 Colon [place] * Telephone Encounter - Alvin Galindo - 10/04/2021 2:38 PM EST 12-22-2021 Colon EGD [place] , Taking revised Mirlalax prep documented in this encounter[address] History of Past illness Narrative* Problem Noted Date Resolved Date Elevated blood pressure 06/06/2010 03/20/20 19 documented as of this encounter (statuses as of 10/31/2021) [address] History of Past illness Narrative* Problem Noted Date Resolved Date Elevated blood pressure 06/06/2010 03/20/20 19 documented as of this encounter (statuses as of 11/07/2021) [address] History of Past illness Narrative* Problem Noted Date Resolved Date Elevated blood pressure 06/06/2010 03/20/20 19 documented as of this encounter (statuses as of 11/22/2021) [address] History of Past illness Narrative* Problem Noted Date Resolved Date Elevated blood pressure 06/06/2010 03/20/20 19 documented as of this encounter (statuses as of 12/01/2021) [address] History of Past illness Narrative* Problem Noted Date Resolved Date Elevated blood pressure 06/06/2010 03/20/20 19 documented as of this encounter (statuses as of 12/13/2021) [address] History of Past illness Narrative* Problem Noted Date Resolved Date Elevated blood pressure 06/06/2010 03/20/20 19 documented as of this encounter (statuses as of 12/18/2021) [address] History of Past illness Narrative* Problem Noted Date Resolved Date Elevated blood pressure 06/06/2010 03/20/20 19 documented as of this encounter (statuses as of 01/02/2022) [address] History of Past illness Narrative* Problem Noted Date Resolved Date Elevated blood pressure 06/06/2010 03/20/20 19 documented as of this encounter (statuses as of 01/18/2022) [address] History of Past illness Narrative* Problem Noted Date Resolved Date Elevated blood pressure 06/06/2010 03/20/20 19 documented as of this encounter (statuses as of 01/24/2022) [address] History of Past illness Narrative* Problem Noted Date Resolved Date Elevated blood pressure 06/06/2010 03/20/20 19 documented as of this encounter (statuses as of 01/31/2022) [place] [address] History of Past illness Narrative* Problem Noted Date Resolved Date Elevated blood pressure 06/06/2010 03/20/20 19 documented as of this encounter (statuses as of 02/19/2022) [address] History of Past illness Narrative* Problem Noted Date Resolved Date Elevated blood pressure 06/06/2010 03/20/20 19 documented as of this encounter (statuses as of 03/05/2022) [address] History of Past illness Narrative* Problem Noted Date Resolved Date Elevated blood pressure 06/06/2010 03/20/20 19 documented as of this encounter (statuses as of 03/05/2022) [address] History of Past illness Narrative* Problem Noted Date Resolved Date Elevated blood pressure 06/06/2010 03/20/20 19 documented as of this encounter (statuses as of 03/09/2022) [address] History of Past illness Narrative* Problem Noted Date Resolved Date Elevated blood pressure 06/06/2010 03/20/20 19 documented as of this encounter (statuses as of 03/23/2022) [place] [address] History of Past illness Narrative* Problem Noted Date Resolved Date Elevated blood pressure 06/06/2010 03/20/20 19 documented as of this encounter (statuses as of 04/12/2022) [address] History of Past illness Narrative* Problem Noted Date Resolved Date Elevated blood pressure 06/06/2010 03/20/20 19 documented as of this encounter (statuses as of 04/13/2022) [address] History of Past illness Narrative* Problem Noted Date Resolved Date Elevated blood pressure 06/06/2010 03/20/20 19 documented as of this encounter (statuses as of 04/19/2022) [address] History of Past illness Narrative* Problem Noted Date Resolved Date Elevated blood pressure 06/06/2010 03/20/20 19 documented as of this encounter (statuses as of 05/03/2022) [address] History of Past illness Narrative* Problem Noted Date Resolved Date Elevated blood pressure 06/06/2010 03/20/20 19 documented as of this encounter (statuses as of 05/07/2022) [place] [address] History of Past illness Narrative* Problem Noted Date Resolved Date Elevated blood pressure 06/06/2010 03/20/20 19 documented as of this encounter (statuses as of 05/07/2022) [facility] History of Past illness Narrative* Problem Noted Date Resolved Date Elevated blood pressure 06/06/2010 03/20/20 19 documented as of this encounter (statuses as of 05/10/2022) [address] History of Past illness Narrative* Problem Noted Date Resolved Date Elevated blood pressure 06/06/2010 03/20/20 19 documented as of this encounter (statuses as of 05/10/2022) [facility] History of Past illness Narrative* Problem Noted Date Resolved Date Elevated blood pressure 06/06/2010 03/20/20 19 documented as of this encounter (statuses as of 05/31/2022) [facility] History of Past illness Narrative* Problem Noted Date Resolved Date Elevated blood pressure 06/06/2010 03/20/20 19 documented as of this encounter (statuses as of 06/08/2022) [facility] History of Past illness Narrative* Problem Noted Date Resolved Date Elevated blood pressure 06/06/2010 03/20/20 19 documented as of this encounter (statuses as of 07/04/2022) [address] History of Past illness Narrative* Problem Noted Date Resolved Date Elevated blood pressure 06/06/2010 03/20/20 19 documented as of this encounter (statuses as of 07/16/2022) [address] History of Past illness Narrative* Problem Noted Date Resolved Date Elevated blood pressure 06/06/2010 03/20/20 19 documented as of this encounter (statuses as of 07/24/2022) [facility] History of Past illness Narrative* Problem Noted Date Resolved Date Elevated blood pressure 06/06/2010 03/20/20 19 documented as of this encounter (statuses as of 07/28/2022) [place] [address] History of Past illness Narrative* Problem Noted Date Resolved Date Elevated blood pressure 06/06/2010 03/20/20 19 documented as of this encounter (statuses as of 08/09/2022) [place] [address] History of Past illness Narrative* Problem Noted Date Resolved Date Elevated blood pressure 06/06/2010 03/20/20 19 documented as of this encounter (statuses as of 08/10/2022) [place] [address] History of Past illness Narrative* Problem Noted Date Resolved Date Elevated blood pressure 06/06/2010 03/20/20 19 documented as of this encounter (statuses as of 08/16/2022) [address] History of Past illness Narrative* Problem Noted Date Resolved Date Elevated blood pressure 06/06/2010 03/20/20 19 documented as of this encounter (statuses as of 08/17/2022) [address] History of Past illness Narrative* Problem Noted Date Resolved Date Elevated blood pressure 06/06/2010 03/20/20 19 documented as of this encounter (statuses as of 08/20/2022) [address] History of Past illness Narrative* Problem Noted Date Resolved Date Elevated blood pressure 06/06/2010 03/20/20 19 documented as of this encounter (statuses as of 08/22/2022) [address] History of Past illness Narrative* Problem Noted Date Resolved Date Elevated blood pressure 06/06/2010 03/20/20 19 documented as of this encounter (statuses as of 08/23/2022) [address] History of Past illness Narrative* Problem Noted Date Resolved Date Elevated blood pressure 06/06/2010 03/20/20 19 documented as of this encounter (statuses as of 08/29/2022) [address] History of Past illness Narrative* Problem Noted Date Resolved Date Elevated blood pressure 06/06/2010 03/20/20 19 documented as of this encounter (statuses as of 08/30/2022) [address] History of Past illness Narrative* Problem Noted Date Resolved Date Elevated blood pressure 06/06/2010 03/20/20 19 documented as of this encounter (statuses as of 09/03/2022) [address] History of Past illness Narrative* Problem Noted Date Resolved Date Elevated blood pressure 06/06/2010 03/20/20 19 documented as of this encounter (statuses as of 09/05/2022) [address] History of Past illness Narrative* Problem Noted Date Resolved Date Elevated blood pressure 06/06/2010 03/20/20 19 documented as of this encounter (statuses as of 09/06/2022) [address] History of Past illness Narrative* Problem Noted Date Resolved Date Elevated blood pressure 06/06/2010 03/20/20 19 documented as of this encounter (statuses as of 09/07/2022) [address] History of Past illness Narrative* Problem Noted Date Resolved Date Elevated blood pressure 06/06/2010 03/20/20 19 documented as of this encounter (statuses as of 09/10/2022) [address] History of Past illness Narrative* Problem Noted Date Resolved Date Elevated blood pressure 06/06/2010 03/20/20 19 documented as of this encounter (statuses as of 09/11/2022) [address] History of Past illness Narrative* Problem Noted Date Resolved Date Elevated blood pressure 06/06/2010 03/20/20 19 documented as of this encounter (statuses as of 09/13/2022) [address] History of Past illness Narrative* Problem Noted Date Resolved Date Elevated blood pressure 06/06/2010 03/20/20 19 documented as of this encounter (statuses as of 09/17/2022) [address] History of Past illness Narrative* Problem Noted Date Resolved Date Elevated blood pressure 06/06/2010 03/20/20 19 documented as of this encounter (statuses as of 09/18/2022) [address] History of Past illness Narrative* Problem Noted Date Resolved Date Elevated blood pressure 06/06/2010 03/20/20 19 documented as of this encounter (statuses as of 09/28/2022) [address] History of Past illness Narrative* Problem Noted Date Resolved Date Elevated blood pressure 06/06/2010 03/20/20 19 documented as of this encounter (statuses as of 10/02/2022) [address] History of Past illness Narrative* Problem Noted Date Resolved Date Elevated blood pressure 06/06/2010 03/20/20 19 documented as of this encounter (statuses as of 10/04/2022) [address] History of Past illness Narrative* Problem Noted Date Resolved Date Elevated blood pressure 06/06/2010 03/20/20 19 documented as of this encounter (statuses as of 10/05/2022) [address] History of Past illness Narrative* Problem Noted Date Resolved Date Elevated blood pressure 06/06/2010 03/20/20 19 documented as of this encounter (statuses as of 10/05/2022) [address]2010 History of Past illness Narrative* Problem Noted Date Resolved Date Elevated blood pressure 06/06/2010 03/20/20 19 documented as of this encounter (statuses as of 10/12/2022) [address]2010 History of Past illness Narrative* Problem Noted Date Resolved Date Elevated blood pressure 06/06/2010 03/20/20 19 documented as of this encounter (statuses as of 10/15/2022) [address]2010 History of Past illness Narrative* Problem Noted Date Resolved Date Elevated blood pressure 06/06/2010 03/20/20 19 documented as of this encounter (statuses as of 10/15/2022) [place] [address]02-2010 History of Past illness Narrative* Problem Noted Date Resolved Date Elevated blood pressure 06/06/2010 03/20/20 19 documented as of this encounter (statuses as of 10/16/2022) [address]2010 History of Past illness Narrative* Problem Noted Date Resolved Date Elevated blood pressure 06/06/2010 03/20/20 19 documented as of this encounter (statuses as of 10/22/2022) [address] History of Past illness Narrative* Problem Noted Date Resolved Date Elevated blood pressure 06/06/2010 03/20/20 19 documented as of this encounter (statuses as of 10/30/2022) [address]2010 History of Past illness Narrative* Problem Noted Date Resolved Date Elevated blood pressure 06/06/2010 03/20/20 19 documented as of this encounter (statuses as of 11/01/2022) [address] History of Past illness Narrative* Problem Noted Date Resolved Date Elevated blood pressure 06/06/2010 03/20/20 19 documented as of this encounter (statuses as of 11/05/2022) [place] [address]2010 History of Past illness Narrative* Problem Noted Date Resolved Date Elevated blood pressure 06/06/2010 03/20/20 19 documented as of this encounter (statuses as of 11/06/2022) [place] [address]2010 History of Past illness Narrative* Problem Noted Date Resolved Date Elevated blood pressure 06/06/2010 03/20/20 19 documented as of this encounter (statuses as of 11/07/2022) [address] History of Past illness Narrative* Problem Noted Date Resolved Date Elevated blood pressure 06/06/2010 03/20/20 19 documented as of this encounter (statuses as of 11/09/2022) [address] History of Past illness Narrative* Problem Noted Date Resolved Date Elevated blood pressure 06/06/2010 03/20/20 19 documented as of this encounter (statuses as of 11/13/2022) [address] History of Past illness Narrative* Problem Noted Date Resolved Date Elevated blood pressure 06/06/2010 03/20/20 19 documented as of this encounter (statuses as of 11/15/2022) [place] [address]2010 History of Past illness Narrative* Problem Noted Date Resolved Date Elevated blood pressure 06/06/2010 03/20/20 19 documented as of this encounter (statuses as of 11/16/2022) [address]2010 History of Past illness Narrative* Problem Noted Date Resolved Date Elevated blood pressure 06/06/2010 03/20/20 19 documented as of this encounter (statuses as of 11/17/2022) [address]2010 History of Past illness Narrative* Problem Noted Date Resolved Date Elevated blood pressure 06/06/2010 03/20/20 19 documented as of this encounter (statuses as of 11/17/2022) [address] History of Past illness Narrative* Problem Noted Date Resolved Date Elevated blood pressure 06/06/2010 03/20/20 19 documented as of this encounter (statuses as of 11/18/2022) [address]2010 History of Past illness Narrative* Problem Noted Date Resolved Date Elevated blood pressure 06/06/2010 03/20/20 19 documented as of this encounter (statuses as of 11/19/2022) [address]2010 History of Past illness Narrative* Problem Noted Date Resolved Date Elevated blood pressure 06/06/2010 03/20/20 19 documented as of this encounter (statuses as of 11/20/2022) [address]2010 History of Past illness Narrative* Problem Noted Date Resolved Date Elevated blood pressure 06/06/2010 03/20/20 19 documented as of this encounter (statuses as of 11/26/2022) [address]2010 History of Past illness Narrative* Problem Noted Date Resolved Date Elevated blood pressure 06/06/2010 03/20/20 19 documented as of this encounter (statuses as of 11/28/2022) [address]2010 History of Past illness Narrative* Problem Noted Date Resolved Date Elevated blood pressure 06/06/2010 03/20/20 19 documented as of this encounter (statuses as of 11/29/2022) [address]2010 History of Past illness Narrative* Problem Noted Date Resolved Date Elevated blood pressure 06/06/2010 03/20/20 19 documented as of this encounter (statuses as of 12/03/2022) [address] History of Past illness Narrative* Problem Noted Date Resolved Date Elevated blood pressure 06/06/2010 03/20/20 19 documented as of this encounter (statuses as of 12/03/2022) [address] History of Past illness Narrative* Problem Noted Date Resolved Date Elevated blood pressure 06/06/2010 03/20/20 19 documented as of this encounter (statuses as of 12/05/2022) [address] History of Past illness Narrative* Problem Noted Date Resolved Date Elevated blood pressure 06/06/2010 03/20/20 19 documented as of this encounter (statuses as of 12/05/2022) [address] History of Past illness Narrative* Problem Noted Date Resolved Date Elevated blood pressure 06/06/2010 03/20/20 19 documented as of this encounter (statuses as of 12/06/2022) [address] History of Past illness Narrative* Problem Noted Date Resolved Date Elevated blood pressure 06/06/2010 03/20/20 19 documented as of this encounter (statuses as of 12/06/2022) [place] [address]2010 History of Past illness Narrative* Problem Noted Date Resolved Date Elevated blood pressure 06/06/2010 03/20/20 19 documented as of this encounter (statuses as of 12/06/2022) [place] [address]2010 History of Past illness Narrative* Problem Noted Date Resolved Date Elevated blood pressure 06/06/2010 03/20/20 19 documented as of this encounter (statuses as of 12/11/2022) [address]2010 History of Past illness Narrative* Problem Noted Date Resolved Date Elevated blood pressure 06/06/2010 03/20/20 19 documented as of this encounter (statuses as of 12/12/2022) [address]2010 History of Past illness Narrative* Problem Noted Date Resolved Date Elevated blood pressure 06/06/2010 03/20/20 19 documented as of this encounter (statuses as of 01/21/2023) [place] [address]2010 History of Past illness Narrative* Problem Noted Date Resolved Date Elevated blood pressure 06/06/2010 03/20/20 19 documented as of this encounter (statuses as of 01/29/2023) [place] [address]2010 History of Past illness Narrative* Problem Noted Date Diagnosed Date Resolved Date Elevated blood pressure 06/06/201003/05 documented as of this encounter (statuses as of 02/15/2023) [place] [address]2010 History of Past illness Narrative* Problem Noted Date Diagnosed Date Resolved Date Elevated blood pressure 06/06/201003/05 documented as of this encounter (statuses as of 02/15/2023) [place] [address]2010 History of Past illness Narrative* Problem Noted Date Diagnosed Date Resolved Date Elevated blood pressure 06/06/201003/05 documented as of this encounter (statuses as of 02/16/2023) [place] [address]2010 History of Past illness Narrative* Problem Noted Date Diagnosed Date Resolved Date Elevated blood pressure 06/06/201003/05 documented as of this encounter (statuses as of 02/20/2023) [place] [address]2010 History of Past illness Narrative* Problem Noted Date Diagnosed Date Resolved Date Elevated blood pressure 06/06/201003/05 documented as of this encounter (statuses as of 02/22/2023) [facility] note* Diagnosis Right hemiplegia (HCC)- Primary Hemiplegia, unspecified, affecting unspecified side documented in this encounter [facility] note* Diagnosis Right hemiplegia (HCC)- Primary Hemiplegia, unspecified, affecting unspecified side Paroxysmal atrial fibrillation (HCC) Atrial fibrillation Coronary artery disease involving [place] coronary artery of [place] heart without angina pectoris Essential hypertension Unspecified essential hypertension Hyperlipidemia, unspecified hyperlipidemia type Cerebrovascular accident (CVA), unspecified mechanism (HCC) Chronic insomnia Insomnia, unspecified Anxiety Anxiety state, unspecified Shortness of breath Shortness of breath documented in this encounter [facility] note* Diagnosis Onset Date Resolution Status Gait disturbance acute Dehydration resolved Mass of upper lobe of 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 [facility] Work Phone: evaluation note* Diagnosis Fungal dermatitis- Primary Dermatomycosis, unspecified documented in this encounter [facility] note* Diagnosis Anxiety Anxiety state, unspecified documented in this encounter [facility] note* Diagnosis Anxiety Anxiety state, unspecified Hyperlipidemia, unspecified hyperlipidemia type documented in this encounter [facility] note* Diagnosis Special screening for malignant neoplasm of colon- Primary Special screening for malignant neoplasms, colon documented in this encounter [facility] note* Diagnosis Hyperlipidemia, unspecified hyperlipidemia type- Primary Essential hypertension Unspecified essential hypertension Shortness of breath Elevated glucose Other abnormal glucose documented in this encounter [facility] note* Diagnosis Peripheral vascular disease, unspecified (HCC)- Primary Peripheral vascular disease, unspecified Foot drop, right Other acquired deformity of ankle and foot documented in this encounter [facility] note* Diagnosis Cerebrovascular accident (CVA), unspecified mechanism (HCC)- Primary Dysphasia Other speech disturbance documented in this encounter [facility] note* Diagnosis Anxiety Anxiety state, unspecified documented in this encounter [facility] noteNo assessment information availableWKind[facility] Work [facility]: [facility]* Diagnosis Aphasia as late effect of cerebrovascular accident- Primary Aphasia, late effect of cerebrovascular disease Right hemiplegia (HCC) Hemiplegia, unspecified, affecting unspecified side Cerebrovascular accident (CVA), unspecified mechanism (HCC) Coronary artery disease involving [place] coronary artery of [place] heart without angina pectoris Essential hypertension Unspecified essential hypertension Paroxysmal atrial fibrillation (HCC) Atrial fibrillation Anxiety Anxiety state, unspecified Dysphasia Other speech disturbance [facility] Diagnosis Anxiety Anxiety state, unspecified [facility] Diagnosis Onset Date Resolution Status 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, cigarettes, in remission acute [facility] Work Phone: Evaluation note* Diagnosis Aphasia as late effect of cerebrovascular accident- Primary Aphasia, late effect of cerebrovascular disease DARON (obstructive sleep apnea) Obstructive sleep apnea (adult) (pediatric) Chronic insomnia Insomnia, unspecified [facility]* Diagnosis Right hemiplegia (HCC)- Primary Hemiplegia, unspecified, affecting unspecified side COPD with exacerbation (HCC) Obstructive chronic bronchitis with exacerbation [facility]* Diagnosis Difficulty sleeping Sleep disturbance, unspecified [facility] Diagnosis Balanitis- Primary Balanoposthitis [facility] Diagnosis Onset Date Resolution Status 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, cigarettes, in remission acute Hypoxia acute [facility] Work Phone: Evaluation note* Diagnosis Acute cystitis without hematuria- Primary Acute cystitis Balanitis Balanoposthitis [facility] Diagnosis Coronary artery disease involving [place] coronary artery of [place] heart without angina pectoris- Primary Essential hypertension Unspecified essential hypertension Hyperlipidemia, unspecified hyperlipidemia type Occlusion of left carotid artery Occlusion and stenosis of carotid artery without mention of cerebral infarction [facility] Diagnosis Occlusion of left carotid artery- Primary Occlusion and stenosis of carotid artery without mention of cerebral infarction [facility] Diagnosis Aphasia as late effect of cerebrovascular accident- Primary Aphasia, late effect of cerebrovascular disease Chronic insomnia Insomnia, unspecified Right hemiplegia (HCC) Hemiplegia, unspecified, affecting unspecified side Paroxysmal atrial fibrillation (HCC) Atrial fibrillation Essential hypertension Unspecified essential hypertension Anxiety Anxiety state, unspecified [facility] Diagnosis Essential hypertension Unspecified essential hypertension [facility] Diagnosis Primary hypertension- Primary Unspecified essential hypertension documented in this encounter [facility] note* Diagnosis Cerebrovascular accident (CVA), unspecified mechanism (HCC)- Primary Right hemiplegia (HCC) Hemiplegia, unspecified, affecting unspecified side Aphasia as late effect of cerebrovascular accident Aphasia, late effect of cerebrovascular disease documented in this encounter [facility] note* Diagnosis Cerebrovascular accident (CVA), unspecified mechanism (HCC)- Primary Right hemiplegia (HCC) Hemiplegia, unspecified, affecting unspecified side Aphasia as late effect of cerebrovascular accident Aphasia, late effect of cerebrovascular disease documented in this encounter [facility] note* Diagnosis Acute cystitis without hematuria- Primary Acute cystitis documented in this encounter [facility] note* Diagnosis Coronary artery disease involving [place] coronary artery of [place] heart without angina pectoris- Primary Paroxysmal atrial fibrillation (HCC) Atrial fibrillation Essential hypertension Unspecified essential hypertension Mixed hyperlipidemia Bradycardia Other specified cardiac dysrhythmias Occlusion of left carotid artery Occlusion and stenosis of carotid artery without mention of cerebral infarction documented in this encounter [facility] note* Diagnosis Chronic insomnia Insomnia, unspecified documented in this encounter [facility] note* Diagnosis Onset Date Resolution Status Hypoxia acute Pneumonia acute Aphasia acute Community acquired pneumonia acute History of stroke acute Hypoxia acute [facility] Work Phone: Evaluation note* Diagnosis Bacterial [...] (HCC) Tracheostomy status documented in this encounter [facility] note* Diagnosis Acute cough- Primary Anxiety Anxiety state, unspecified Coronary artery disease involving [place] coronary artery of [place] heart without angina pectoris Paroxysmal atrial fibrillation (HCC) Atrial fibrillation Right hemiplegia (HCC) Hemiplegia, unspecified, affecting unspecified side Essential hypertension Unspecified essential hypertension Mixed hyperlipidemia Tracheostomy status (HCC) Tracheostomy status Aneurysm (HCC) Aneurysm of unspecified site documented in this encounter [facility] note* Diagnosis Right hemiplegia (HCC)- Primary Hemiplegia, unspecified, affecting unspecified side Cerebrovascular accident (CVA), unspecified mechanism (HCC) Aphasia as late effect of cerebrovascular accident Aphasia, late effect of cerebrovascular disease [facility] Diagnosis Aphasia as late effect of cerebrovascular accident- Primary Aphasia, late effect of cerebrovascular disease Cerebrovascular accident (CVA), unspecified mechanism (HCC) [facility] Diagnosis Cerebrovascular accident (CVA), unspecified mechanism (HCC)- Primary [facility]* Diagnosis Hyperlipidemia, unspecified hyperlipidemia type documented in this encounter [facility] note* Diagnosis Bacterial pneumonia Bacterial pneumonia, unspecified COPD with exacerbation (HCC) Obstructive chronic bronchitis with exacerbation [facility] Diagnosis Anxiety- Primary Anxiety state, unspecified Essential hypertension Unspecified essential hypertension Hyperlipidemia, unspecified hyperlipidemia type Coronary artery disease involving [place] coronary artery of [place] heart without angina pectoris Cerebrovascular accident (CVA), [...] of unspecified site documented in this encounter [facility] note* Diagnosis Anxiety Anxiety state, unspecified [facility]* Diagnosis Chronic obstructive pulmonary disease, unspecified COPD type (HCC) [facility] Diagnosis Pulmonary emphysema, unspecified emphysema type (HCC) [facility]* Diagnosis Centrilobular emphysema (HCC)- Primary Other emphysema Former cigarette smoker Personal history of tobacco use, presenting hazards to health CVA, old, hemiparesis (HCC) Hemiplegia affecting unspecified side, late effect of cerebrovascular disease [facility]* Diagnosis Cervicalgia [facility] Diagnosis Iron deficiency anemia due to chronic blood loss- Primary Iron deficiency anemia secondary to blood loss (chronic) [facility] Diagnosis Iron deficiency anemia due to [...] [facility] in [facility] Iron deficiency anemia due [...] of cerebrovascular disease Coronary artery disease involving [place] coronary artery of [place] heart without angina pectoris Paroxysmal atrial fibrillation [...] involving digestive system [facility]* Diagnosis 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 [facility]* Diagnosis Cerebrovascular accident (CVA), unspecified mechanism (HCC)- Primary [facility]* Diagnosis Paroxysmal atrial fibrillation (HCC)- Primary Atrial fibrillation Preoperative examination Preoperative examination, unspecified Rectal mass Other symptoms involving digestive system [facility]* Diagnosis Occlusion of left carotid artery- Primary Occlusion and stenosis of carotid artery without mention of cerebral infarction Rectal mass Other symptoms involving digestive system [facility]* Diagnosis Coronary artery disease involving [place] coronary artery of [place] heart without angina pectoris- Primary Paroxysmal atrial fibrillation (HCC) Atrial fibrillation Essential hypertension Unspecified essential hypertension Bradycardia Other specified cardiac dysrhythmias Mixed hyperlipidemia Occlusion of left carotid artery Occlusion and stenosis of carotid artery without mention of cerebral infarction Pre-operative cardiovascular examination Rectal mass Other symptoms involving digestive system [facility]* Diagnosis Pre-op evaluation- Primary Preoperative examination, unspecified 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) Coronary artery disease involving [place] coronary artery of [place] heart without angina pectoris Paroxysmal atrial fibrillation (HCC) Atrial fibrillation Centrilobular emphysema (HCC) Other emphysema Rectal mass Other symptoms involving digestive system [facility]* Diagnosis Rectal mass- Primary Other symptoms involving digestive system Rectal mass Other symptoms involving digestive system [facility]* Diagnosis Difficulty sleeping Sleep disturbance, unspecified documented in this encounter [facility] note* Diagnosis Onset Date Resolution Status History [...] artery disease chron ic HTN (hypertension) chronic [facility] Work Phone: Evaluation note* Diagnosis Centrilobular emphysema (HCC)- Primary Other emphysema Former smoker Personal history of tobacco use, presenting hazards to health Nocturnal hypoxemia Hypoxemia [facility]* Diagnosis DARON (obstructive sleep apnea)- Primary Obstructive sleep apnea (adult) (pediatric) [facility]* Diagnosis 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 Right hemiplegia (HCC) Hemiplegia, unspecified, affecting unspecified side Chronic insomnia Insomnia, unspecified Mixed hyperlipidemia Essential hypertension Unspecified essential hypertension Coronary artery disease involving [place] coronary artery of [place] heart without angina pectoris Paroxysmal atrial fibrillation (HCC) Atrial fibrillation Centrilobular emphysema (HCC) Other emphysema Erectile dysfunction, unspecified erectile dysfunction type Anxiety Anxiety state, unspecified Stage 3 chronic kidney disease, unspecified whether stage 3a or 3b CKD (HCC) Aneurysm (HCC) Aneurysm of unspecified site [facility] Diagnosis Occlusion of left carotid artery- Primary Occlusion and stenosis of carotid artery without mention of cerebral infarction Subclavian artery stenosis, left (HCC) Atherosclerosis of other specified arteries documented in this encounter [facility] note* Diagnosis Onset Date Resolution Status Bimalleolar fracture of right ankle acute Ankle fracture acute Bimalleolar fracture of right ankle acute Constipation acute Dysuria acute History of stroke acute Atherosclerosis of coronary artery without angina pectoris chronic Carotid artery disease chron ic HTN (hypertension) chronic Bimalleolar fracture of right ankle acute Bimalleolar fracture of right ankle acute [facility] Work Phone: Evaluation note* Diagnosis 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 Right hemiplegia (HCC) Hemiplegia, unspecified, affecting unspecified side Dysphasia Other speech disturbance Aphasia as late effect of cerebrovascular accident Aphasia, late effect of cerebrovascular disease Cerebrovascular accident (CVA), unspecified mechanism (HCC) [facility] Diagnosis Elevated glucose- Primary Other abnormal glucose Anxiety Anxiety state, unspecified Iron deficiency anemia due to chronic blood loss Iron deficiency anemia secondary to blood loss (chronic) Hypertension, essential Unspecified essential hypertension Cerebrovascular accident (CVA), unspecified mechanism (HCC) Hyperlipidemia, unspecified hyperlipidemia type Coronary artery disease involving [place] coronary artery of [place] heart without angina pectoris [facility]* Diagnosis DARON (obstructive sleep apnea)- Primary Obstructive sleep apnea (adult) (pediatric) Intolerance of continuous positive airway pressure (CPAP) ventilation RLS (restless legs syndrome) Restless legs syndrome (RLS) Vitamin D deficiency Unspecified vitamin D deficiency [facility] Diagnosis Anxiety Anxiety state, unspecified [facility] Diagnosis Low iron stores- Primary Other abnormal blood chemistry Iron deficiency anemia due to chronic blood loss Iron deficiency anemia secondary to blood loss (chronic) [facility] Diagnosis Hypertension, essential- Primary Unspecified essential [...] unspecified mechanism (HCC) Coronary artery disease involving [place] coronary artery of [place] heart without angina pectoris 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) Right hemiplegia (HCC) Hemiplegia, unspecified, affecting unspecified side Dysphasia Other speech disturbance Aphasia as late effect of cerebrovascular accident Aphasia, late effect of cerebrovascular disease Essential hypertension Unspecified essential hypertension [facility] Diagnosis Centrilobular emphysema (HCC) Other emphysema [facility]* Diagnosis History of colonic polyps- Primary Personal history of colonic polyps [facility] Diagnosis Coronary artery disease involving [place] coronary artery of [place] heart without angina pectoris- Primary Paroxysmal atrial fibrillation (HCC) Atrial fibrillation Essential hypertension Unspecified essential hypertension Mixed hyperlipidemia Bradycardia Other specified cardiac dysrhythmias Occlusion of left carotid artery Occlusion and stenosis of carotid artery without mention of cerebral infarction Pre-operative cardiovascular examination [facility] Diagnosis History of stroke- Primary Transient [...] mental status type [facility] Diagnosis Anxiety- Primary Anxiety state, unspecified Essential hypertension Unspecified essential hypertension Hyperlipidemia, unspecified hyperlipidemia type Coronary artery disease involving [place] coronary artery of [place] heart without angina pectoris Cerebrovascular accident (CVA), [...] of cerebrovascular disease Coronary artery disease involving [place] coronary artery of [place] heart without angina pectoris Paroxysmal atrial fibrillation [...] carotid artery (HCC) Coronary artery disease involving [place] coronary artery of [place] heart without angina pectoris Paroxysmal atrial fibrillation (HCC) Atrial fibrillation Centrilobular emphysema (HCC) Other emphysema COPD, moderate (HCC)- Primary Chronic airway obstruction, not elsewhere classified Former cigarette smoker Personal history of tobacco use, presenting hazards to health Dependence on nocturnal oxygen therapy [facility] Diagnosis Anxiety- Primary Anxiety state, unspecified Essential hypertension Unspecified essential hypertension Hyperlipidemia, unspecified hyperlipidemia type Coronary artery disease involving [place] coronary artery of [place] heart without angina pectoris Cerebrovascular accident (CVA), [...] of cerebrovascular disease Coronary artery disease involving [place] coronary artery of [place] heart without angina pectoris Paroxysmal atrial fibrillation [...] carotid artery (HCC) Coronary artery disease involving [place] coronary artery of [place] heart without angina pectoris Paroxysmal atrial fibrillation (HCC) Atrial fibrillation Centrilobular emphysema (HCC) Other emphysema Cervicalgia [facility] Diagnosis Acute cough Anxiety- Primary Anxiety state, unspecified Essential hypertension Unspecified essential hypertension Hyperlipidemia, unspecified hyperlipidemia type Coronary artery disease involving [place] coronary artery of [place] heart without angina pectoris Cerebrovascular accident (CVA), [...] carotid artery (HCC) Coronary artery disease involving [place] coronary artery of [place] heart without angina pectoris Paroxysmal atrial fibrillation (HCC) Atrial fibrillation Centrilobular emphysema (HCC) Other emphysema [facility]* Diagnosis Anxiety- Primary Anxiety state, unspecified Essential hypertension Unspecified essential hypertension Hyperlipidemia, unspecified hyperlipidemia type Coronary artery disease involving [place] coronary artery of [place] heart without angina pectoris Cerebrovascular accident (CVA), [...] of cerebrovascular disease Coronary artery disease involving [place] coronary artery of [place] heart without angina pectoris Paroxysmal atrial fibrillation [...] carotid artery (HCC) Coronary artery disease involving [place] coronary artery of [place] heart without angina pectoris Paroxysmal atrial fibrillation (HCC) Atrial fibrillation Centrilobular emphysema (HCC) Other emphysema Cerebral aneurysm- Primary Cerebral aneurysm, nonruptured documented [facility]* Diagnosis Anxiety- Primary Anxiety state, unspecified Essential hypertension Unspecified essential hypertension Hyperlipidemia, unspecified hyperlipidemia type Coronary artery disease involving [place] coronary artery of [place] heart without angina pectoris Cerebrovascular accident (CVA), [...] of cerebrovascular disease Coronary artery disease involving [place] coronary artery of [place] heart without angina pectoris Paroxysmal atrial fibrillation [...] carotid artery (HCC) Coronary artery disease involving [place] coronary artery of [place] heart without angina pectoris Paroxysmal atrial fibrillation [...] unspecified carotid artery [facility] Diagnosis Anxiety- Primary Anxiety state, unspecified Essential hypertension Unspecified essential hypertension Hyperlipidemia, unspecified hyperlipidemia type Coronary artery disease involving [place] coronary artery of [place] heart without angina pectoris Cerebrovascular accident (CVA), [...] of cerebrovascular disease Coronary artery disease involving [place] coronary artery of [place] heart without angina pectoris Paroxysmal atrial fibrillation [...] carotid artery (HCC) Coronary artery disease involving [place] coronary artery of [place] heart without angina pectoris Paroxysmal atrial fibrillation (HCC) Atrial fibrillation Centrilobular emphysema (HCC) Other emphysema Centrilobular emphysema (HCC)- Primary Other emphysema Chronic respiratory failure with hypoxia (HCC) Chronic respiratory failure documented in this encounter [facility] note* Diagnosis Anxiety- Primary Anxiety state, unspecified Essential hypertension Unspecified essential hypertension Hyperlipidemia, unspecified hyperlipidemia type Coronary artery disease involving [place] coronary artery of [place] heart without angina pectoris Cerebrovascular accident (CVA), [...] of cerebrovascular disease Coronary artery disease involving [place] coronary artery of [place] heart without angina pectoris Paroxysmal atrial fibrillation [...] carotid artery (HCC) Coronary artery disease involving [place] coronary artery of [place] heart without angina pectoris Paroxysmal atrial fibrillation [...] with cerebral infarction documented in this encounter [facility] note* Diagnosis Anxiety- Primary Anxiety state, unspecified Essential hypertension Unspecified essential hypertension Hyperlipidemia, unspecified hyperlipidemia type Coronary artery disease involving [place] coronary artery of [place] heart without angina pectoris Cerebrovascular accident (CVA), [...] of cerebrovascular disease Coronary artery disease involving [place] coronary artery of [place] heart without angina pectoris Paroxysmal atrial fibrillation [...] carotid artery (HCC) Coronary artery disease involving [place] coronary artery of [place] heart without angina pectoris Paroxysmal atrial fibrillation (HCC) Atrial fibrillation Centrilobular emphysema (HCC) Other emphysema Medicare annual wellness visit, initial- Primary Routine general medical examination at a health care facility Mixed hyperlipidemia Anxiety Anxiety state, unspecified Coronary artery disease involving [place] coronary artery of [place] heart without angina pectoris Essential hypertension Unspecified essential hypertension Chronic insomnia Insomnia, unspecified Paroxysmal atrial fibrillation (HCC) Atrial fibrillation Bradycardia Other specified cardiac dysrhythmias 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) [facility] Anxiety- Primary Anxiety state, unspecified Essential hypertension Unspecified essential hypertension Hyperlipidemia, unspecified hyperlipidemia type Coronary artery disease involving [place] coronary artery of [place] heart without angina pectoris Cerebrovascular accident (CVA), [...] of cerebrovascular disease Coronary artery disease involving [place] coronary artery of [place] heart without angina pectoris Paroxysmal atrial fibrillation [...] carotid artery (HCC) Coronary artery disease involving [place] coronary artery of [place] heart without angina pectoris Paroxysmal atrial fibrillation (HCC) Atrial fibrillation Centrilobular emphysema (HCC) Other emphysema Cervicalgia [facility] Diagnosis Anxiety- Primary Anxiety state, unspecified Essential hypertension Unspecified essential hypertension Hyperlipidemia, unspecified hyperlipidemia type Coronary artery disease involving [place] coronary artery of [place] heart without angina pectoris Cerebrovascular accident (CVA), [...] of cerebrovascular disease Coronary artery disease involving [place] coronary artery of [place] heart without angina pectoris Paroxysmal atrial fibrillation [...] carotid artery (HCC) Coronary artery disease involving [place] coronary artery of [place] heart without angina pectoris Paroxysmal atrial fibrillation (HCC) Atrial fibrillation Centrilobular emphysema (HCC) Other emphysema Cerebral aneurysm without rupture Cerebral aneurysm, nonruptured documented [facility] Diagnosis Anxiety- Primary Anxiety state, unspecified Essential hypertension Unspecified essential hypertension Hyperlipidemia, unspecified hyperlipidemia type Coronary artery disease involving [place] coronary artery of [place] heart without angina pectoris Cerebrovascular accident (CVA), [...] of cerebrovascular disease Coronary artery disease involving [place] coronary artery of [place] heart without angina pectoris Paroxysmal atrial fibrillation [...] carotid artery (HCC) Coronary artery disease involving [place] coronary artery of [place] heart without angina pectoris Paroxysmal atrial fibrillation [...] of cerebrovascular disease [facility] Diagnosis Anxiety- Primary Anxiety state, unspecified Essential hypertension Unspecified essential hypertension Hyperlipidemia, unspecified hyperlipidemia type Coronary artery disease involving [place] coronary artery of [place] heart without angina pectoris Cerebrovascular accident (CVA), [...] of cerebrovascular disease Coronary artery disease involving [place] coronary artery of [place] heart without angina pectoris Paroxysmal atrial fibrillation [...] carotid artery (HCC) Coronary artery disease involving [place] coronary artery of [place] heart without angina pectoris Paroxysmal atrial fibrillation (HCC) Atrial fibrillation Centrilobular emphysema (HCC) Other emphysema Blood in stool [facility] Diagnosis Anxiety- Primary Anxiety state, unspecified Essential hypertension Unspecified essential hypertension Hyperlipidemia, unspecified hyperlipidemia type Coronary artery disease involving [place] coronary artery of [place] heart without angina pectoris Cerebrovascular accident (CVA), [...] of cerebrovascular disease Coronary artery disease involving [place] coronary artery of [place] heart without angina pectoris Paroxysmal atrial fibrillation [...] carotid artery (HCC) Coronary artery disease involving [place] coronary artery of [place] heart without angina pectoris Paroxysmal atrial fibrillation (HCC) Atrial fibrillation Centrilobular emphysema (HCC) Other emphysema Hospital discharge follow-up- Primary Other follow-up examination Adverse effect of drug, initial encounter Seizure disorder (HCC) Unspecified epilepsy without mention of intractable epilepsy Bacterial pneumonia Bacterial pneumonia, unspecified [facility] Diagnosis Anxiety- Primary Anxiety state, unspecified Essential hypertension Unspecified essential hypertension Hyperlipidemia, unspecified hyperlipidemia type Coronary artery disease involving [place] coronary artery of [place] heart without angina pectoris Cerebrovascular accident (CVA), [...] of cerebrovascular disease Coronary artery disease involving [place] coronary artery of [place] heart without angina pectoris Paroxysmal atrial fibrillation [...] carotid artery (HCC) Coronary artery disease involving [place] coronary artery of [place] heart without angina pectoris Paroxysmal atrial fibrillation (HCC) Atrial fibrillation Centrilobular emphysema (HCC) Other emphysema Seizure disorder (HCC)- Primary Unspecified epilepsy without mention of intractable epilepsy Acute pain of left knee [facility] Diagnosis Anxiety- Primary Anxiety state, unspecified Essential hypertension Unspecified essential hypertension Hyperlipidemia, unspecified hyperlipidemia type Coronary artery disease involving [place] coronary artery of [place] heart without angina pectoris Cerebrovascular accident (CVA), [...] of cerebrovascular disease Coronary artery disease involving [place] coronary artery of [place] heart without angina pectoris Paroxysmal atrial fibrillation [...] carotid artery (HCC) Coronary artery disease involving [place] coronary artery of [place] heart without angina pectoris Paroxysmal atrial fibrillation [...] abnormal electroencephalogram (EEG) [facility] Diagnosis Anxiety- Primary Anxiety state, unspecified Essential hypertension Unspecified essential hypertension Hyperlipidemia, unspecified hyperlipidemia type Coronary artery disease involving [place] coronary artery of [place] heart without angina pectoris Cerebrovascular accident (CVA), [...] of cerebrovascular disease Coronary artery disease involving [place] coronary artery of [place] heart without angina pectoris Paroxysmal atrial fibrillation [...] carotid artery (HCC) Coronary artery disease involving [place] coronary artery of [place] heart without angina pectoris Paroxysmal atrial fibrillation (HCC) Atrial fibrillation Centrilobular emphysema (HCC) Other emphysema Altered awareness, transient- Primary Transient alteration of awareness Abnormal EEG Nonspecific abnormal electroencephalogram (EEG) documented in this encounter [facility] note* Diagnosis Anxiety- Primary Anxiety state, unspecified Essential hypertension Unspecified essential hypertension Hyperlipidemia, unspecified hyperlipidemia type Coronary artery disease involving [place] coronary artery of [place] heart without angina pectoris Cerebrovascular accident (CVA), [...] of cerebrovascular disease Coronary artery disease involving [place] coronary artery of [place] heart without angina pectoris Paroxysmal atrial fibrillation [...] carotid artery (HCC) Coronary artery disease involving [place] coronary artery of [place] heart without angina pectoris Paroxysmal atrial fibrillation (HCC) Atrial fibrillation Centrilobular emphysema (HCC) Other emphysema Centrilobular emphysema (HCC) Other emphysema [facility] Diagnosis Anxiety- Primary Anxiety state, unspecified Essential hypertension Unspecified essential hypertension Hyperlipidemia, unspecified hyperlipidemia type Coronary artery disease involving [place] coronary artery of [place] heart without angina pectoris Cerebrovascular accident (CVA), [...] of cerebrovascular disease Coronary artery disease involving [place] coronary artery of [place] heart without angina pectoris Paroxysmal atrial fibrillation [...] carotid artery (HCC) Coronary artery disease involving [place] coronary artery of [place] heart without angina pectoris Paroxysmal atrial fibrillation (HCC) Atrial fibrillation Centrilobular emphysema (HCC) Other emphysema Essential hypertension Unspecified essential hypertension Difficulty sleeping Sleep disturbance, unspecified [facility] Diagnosis Anxiety- Primary Anxiety state, unspecified Essential hypertension Unspecified essential hypertension Hyperlipidemia, unspecified hyperlipidemia type Coronary artery disease involving [place] coronary artery of [place] heart without angina pectoris Cerebrovascular accident (CVA), [...] of cerebrovascular disease Coronary artery disease involving [place] coronary artery of [place] heart without angina pectoris Paroxysmal atrial fibrillation [...] carotid artery (HCC) Coronary artery disease involving [place] coronary artery of [place] heart without angina pectoris Paroxysmal atrial fibrillation (HCC) Atrial fibrillation Centrilobular emphysema (HCC) Other emphysema Seizure disorder (HCC) Unspecified epilepsy without mention of intractable epilepsy [facility] Diagnosis Anxiety- Primary Anxiety state, unspecified Essential hypertension Unspecified essential hypertension Hyperlipidemia, unspecified hyperlipidemia type Coronary artery disease involving [place] coronary artery of [place] heart without angina pectoris Cerebrovascular accident (CVA), [...] of cerebrovascular disease Coronary artery disease involving [place] coronary artery of [place] heart without angina pectoris Paroxysmal atrial fibrillation [...] carotid artery (HCC) Coronary artery disease involving [place] coronary artery of [place] heart without angina pectoris Paroxysmal atrial fibrillation (HCC) Atrial fibrillation Centrilobular emphysema (HCC) Other emphysema Cervicalgia [facility] Diagnosis Anxiety- Primary Anxiety state, unspecified Essential hypertension Unspecified essential hypertension Hyperlipidemia, unspecified hyperlipidemia type Coronary artery disease involving [place] coronary artery of [place] heart without angina pectoris Cerebrovascular accident (CVA), [...] of cerebrovascular disease Coronary artery disease involving [place] coronary artery of [place] heart without angina pectoris Paroxysmal atrial fibrillation [...] carotid artery (HCC) Coronary artery disease involving [place] coronary artery of [place] heart without angina pectoris Paroxysmal atrial fibrillation (HCC) Atrial fibrillation Centrilobular emphysema (HCC) Other emphysema Anxiety Anxiety state, unspecified Chronic insomnia Insomnia, unspecified documented in this encounter [facility] note* Diagnosis Anxiety- Primary Anxiety state, unspecified Essential hypertension Unspecified essential hypertension Hyperlipidemia, unspecified hyperlipidemia type Coronary artery disease involving [place] coronary artery of [place] heart without angina pectoris Cerebrovascular accident (CVA), [...] of cerebrovascular disease Coronary artery disease involving [place] coronary artery of [place] heart without angina pectoris Paroxysmal atrial fibrillation [...] carotid artery (HCC) Coronary artery disease involving [place] coronary artery of [place] heart without angina pectoris Paroxysmal atrial fibrillation (HCC) Atrial fibrillation Centrilobular emphysema (HCC) Other emphysema 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] of cerebrovascular disease Coronary artery disease involving [place] coronary artery of [place] heart without angina pectoris Paroxysmal atrial fibrillation [...] carotid artery (HCC) Coronary artery disease involving [place] coronary artery of [place] heart without angina pectoris Paroxysmal atrial fibrillation (HCC) Atrial fibrillation Centrilobular emphysema (HCC) Other emphysema Centrilobular emphysema (HCC) Other emphysema [facility] Diagnosis Anxiety- Primary Anxiety state, unspecified Essential hypertension Unspecified essential hypertension Hyperlipidemia, unspecified hyperlipidemia type Coronary artery disease involving [place] coronary artery of [place] heart without angina pectoris Cerebrovascular accident (CVA), [...] of cerebrovascular disease Coronary artery disease involving [place] coronary artery of [place] heart without angina pectoris Paroxysmal atrial fibrillation [...] carotid artery (HCC) Coronary artery disease involving [place] coronary artery of [place] heart without angina pectoris Paroxysmal atrial fibrillation (HCC) Atrial fibrillation Centrilobular emphysema (HCC) Other emphysema Occlusion of left carotid artery- Primary Occlusion and stenosis of carotid artery without mention of cerebral infarction Subclavian artery stenosis, left (HCC) Atherosclerosis of other specified arteries [facility] Diagnosis Anxiety- Primary Anxiety state, unspecified Essential hypertension Unspecified essential hypertension Hyperlipidemia, unspecified hyperlipidemia type Coronary artery disease involving [place] coronary artery of [place] heart without angina pectoris Cerebrovascular accident (CVA), [...] of cerebrovascular disease Coronary artery disease involving [place] coronary artery of [place] heart without angina pectoris Paroxysmal atrial fibrillation [...] carotid artery (HCC) Coronary artery disease involving [place] coronary artery of [place] heart without angina pectoris Paroxysmal atrial fibrillation (HCC) Atrial fibrillation Centrilobular emphysema (HCC) Other emphysema Cough [facility] Diagnosis Anxiety- Primary Anxiety state, unspecified Essential hypertension Unspecified essential hypertension Hyperlipidemia, unspecified hyperlipidemia type Coronary artery disease involving [place] coronary artery of [place] heart without angina pectoris Cerebrovascular accident (CVA), [...] of cerebrovascular disease Coronary artery disease involving [place] coronary artery of [place] heart without angina pectoris Paroxysmal atrial fibrillation [...] carotid artery (HCC) Coronary artery disease involving [place] coronary artery of [place] heart without angina pectoris Paroxysmal atrial fibrillation (HCC) Atrial fibrillation Centrilobular emphysema (HCC) Other emphysema COPD, moderate (HCC)- Primary Chronic airway obstruction, not elsewhere classified Former cigarette smoker Personal history of tobacco use, presenting hazards to health Dependence on nocturnal oxygen therapy [facility] Diagnosis Anxiety- Primary Anxiety state, unspecified Essential hypertension Unspecified essential hypertension Hyperlipidemia, unspecified hyperlipidemia type Coronary artery disease involving [place] coronary artery of [place] heart without angina pectoris Cerebrovascular accident (CVA), [...] of cerebrovascular disease Coronary artery disease involving [place] coronary artery of [place] heart without angina pectoris Paroxysmal atrial fibrillation [...] carotid artery (HCC) Coronary artery disease involving [place] coronary artery of [place] heart without angina pectoris Paroxysmal atrial fibrillation [...] of intractable epilepsy [facility] Diagnosis Anxiety- Primary Anxiety state, unspecified Essential hypertension Unspecified essential hypertension Hyperlipidemia, unspecified hyperlipidemia type Coronary artery disease involving [place] coronary artery of [place] heart without angina pectoris Cerebrovascular accident (CVA), [...] of cerebrovascular disease Coronary artery disease involving [place] coronary artery of [place] heart without angina pectoris Paroxysmal atrial fibrillation [...] carotid artery (HCC) Coronary artery disease involving [place] coronary artery of [place] heart without angina pectoris Paroxysmal atrial fibrillation (HCC) Atrial fibrillation Centrilobular emphysema (HCC) Other emphysema 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, without mention of intractable epilepsy [facility] Diagnosis Anxiety- Primary Anxiety state, unspecified Essential hypertension Unspecified essential hypertension Hyperlipidemia, unspecified hyperlipidemia type Coronary artery disease involving [place] coronary artery of [place] heart without angina pectoris Cerebrovascular accident (CVA), [...] of cerebrovascular disease Coronary artery disease involving [place] coronary artery of [place] heart without angina pectoris Paroxysmal atrial fibrillation [...] carotid artery (HCC) Coronary artery disease involving [place] coronary artery of [place] heart without angina pectoris Paroxysmal atrial fibrillation (HCC) Atrial fibrillation Centrilobular emphysema (HCC) Other emphysema 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 Cerebrovascular accident (CVA), unspecified mechanism (HCC) documented [facility] Diagnosis Anxiety- Primary Anxiety state, unspecified Essential hypertension Unspecified essential hypertension Hyperlipidemia, unspecified hyperlipidemia type Coronary artery disease involving [place] coronary artery of [place] heart without angina pectoris Cerebrovascular accident (CVA), [...] of cerebrovascular disease Coronary artery disease involving [place] coronary artery of [place] heart without angina pectoris Paroxysmal atrial fibrillation [...] carotid artery (HCC) Coronary artery disease involving [place] coronary artery of [place] heart without angina pectoris Paroxysmal atrial fibrillation (HCC) Atrial fibrillation Centrilobular emphysema (HCC) Other emphysema Seizure (HCC) Other convulsions 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, without mention of intractable epilepsy [facility] Diagnosis Anxiety- Primary Anxiety state, unspecified Essential hypertension Unspecified essential hypertension Hyperlipidemia, unspecified hyperlipidemia type Coronary artery disease involving [place] coronary artery of [place] heart without angina pectoris Cerebrovascular accident (CVA), [...] of cerebrovascular disease Coronary artery disease involving [place] coronary artery of [place] heart without angina pectoris Paroxysmal atrial fibrillation [...] carotid artery (HCC) Coronary artery disease involving [place] coronary artery of [place] heart without angina pectoris Paroxysmal atrial fibrillation (HCC) Atrial fibrillation Centrilobular emphysema (HCC) Other emphysema Occlusion of left carotid artery- Primary Occlusion and stenosis of carotid artery without mention of cerebral infarction Subclavian artery stenosis, left Atherosclerosis of other specified arteries documented in this [facility]* Diagnosis Anxiety- Primary Anxiety state, unspecified Essential hypertension Unspecified essential hypertension Hyperlipidemia, unspecified hyperlipidemia type Coronary artery disease involving [place] coronary artery of [place] heart without angina pectoris Cerebrovascular accident (CVA), [...] of cerebrovascular disease Coronary artery disease involving [place] coronary artery of [place] heart without angina pectoris Paroxysmal atrial fibrillation [...] carotid artery (HCC) Coronary artery disease involving [place] coronary artery of [place] heart without angina pectoris Paroxysmal atrial fibrillation (HCC) Atrial fibrillation Centrilobular emphysema (HCC) Other emphysema Acute cough- Primary documented [facility]* Diagnosis Anxiety- Primary Anxiety state, unspecified Essential hypertension Unspecified essential hypertension Hyperlipidemia, unspecified hyperlipidemia type Coronary artery disease involving [place] coronary artery of [place] heart without angina pectoris Cerebrovascular accident (CVA), [...] of cerebrovascular disease Coronary artery disease involving [place] coronary artery of [place] heart without angina pectoris Paroxysmal atrial fibrillation [...] carotid artery (HCC) Coronary artery disease involving [place] coronary artery of [place] heart without angina pectoris Paroxysmal atrial fibrillation (HCC) Atrial fibrillation Centrilobular emphysema (HCC) Other emphysema Seizure (HCC)- Primary Other convulsions [facility] Diagnosis Anxiety- Primary Anxiety state, unspecified Essential hypertension Unspecified essential hypertension Hyperlipidemia, unspecified hyperlipidemia type Coronary artery disease involving [place] coronary artery of [place] heart without angina pectoris Cerebrovascular accident (CVA), [...] of cerebrovascular disease Coronary artery disease involving [place] coronary artery of [place] heart without angina pectoris Paroxysmal atrial fibrillation [...] carotid artery (HCC) Coronary artery disease involving [place] coronary artery of [place] heart without angina pectoris Paroxysmal atrial fibrillation [...] kidney disease (HCC) [facility] Diagnosis Anxiety- Primary Anxiety state, unspecified Essential hypertension Unspecified essential hypertension Hyperlipidemia, unspecified hyperlipidemia type Coronary artery disease involving [place] coronary artery of [place] heart without angina pectoris Cerebrovascular accident (CVA), [...] of cerebrovascular disease Coronary artery disease involving [place] coronary artery of [place] heart without angina pectoris Paroxysmal atrial fibrillation [...] carotid artery (HCC) Coronary artery disease involving [place] coronary artery of [place] heart without angina pectoris Paroxysmal atrial fibrillation (HCC) Atrial fibrillation Centrilobular emphysema (HCC) Other emphysema Tobacco abuse Tobacco use disorder documented in this [facility] Diagnosis Anxiety- Primary Anxiety state, unspecified Essential hypertension Unspecified essential hypertension Hyperlipidemia, unspecified hyperlipidemia type Coronary artery disease involving [place] coronary artery of [place] heart without angina pectoris Cerebrovascular accident (CVA), [...] of cerebrovascular disease Coronary artery disease involving [place] coronary artery of [place] heart without angina pectoris Paroxysmal atrial fibrillation [...] carotid artery (HCC) Coronary artery disease involving [place] coronary artery of [place] heart without angina pectoris Paroxysmal atrial fibrillation (HCC) Atrial fibrillation Centrilobular emphysema (HCC) Other emphysema Coronary artery disease involving [place] coronary artery of [place] heart without angina pectoris- Primary Paroxysmal atrial fibrillation (HCC) Atrial fibrillation Essential hypertension Unspecified essential hypertension Mixed hyperlipidemia Occlusion of left carotid artery Occlusion and stenosis of carotid artery without mention of cerebral infarction Sinus bradycardia Other specified cardiac dysrhythmias [facility]* Diagnosis Anxiety- Primary Anxiety state, unspecified Essential hypertension Unspecified essential hypertension Hyperlipidemia, unspecified hyperlipidemia type Coronary artery disease involving [place] coronary artery of [place] heart without angina pectoris Cerebrovascular accident (CVA), [...] of cerebrovascular disease Coronary artery disease involving [place] coronary artery of [place] heart without angina pectoris Paroxysmal atrial fibrillation [...] carotid artery (HCC) Coronary artery disease involving [place] coronary artery of [place] heart without angina pectoris Paroxysmal atrial fibrillation (HCC) Atrial fibrillation Centrilobular emphysema (HCC) Other emphysema Bilateral impacted cerumen- Primary Impacted cerumen documented in this encounter [facility] course Narrative No data available for this section [facility] Reason for referral (narrative)* Diagnostic Procedure Only (Routine) - Pending Review Specialty Diagnoses / Procedures Referred By Jed t Referred To Contact XR IMAGING Diagnoses Aphasia as late effect of cerebrovascular accident Cerebrovascular accident (CVA), unspecified mechanism (HCC) Procedures XR MODIFIED BARIUM SWALLOW W SPEECH THERAPY RADIOLOGIC EXAM SWALLOW FUNCTION CONTRAST STUDY Jaci Arroyo MD [address] [place] [address] Xr Imaging Referral ID Status Reason Start Date Expiration Date Visits Requested Visits Authorized [id number] Pending Review Auto-Generat ed Referral 12/06/2022 01/05/2024 1 1 * Speech Therapy (Routine) - Pending Review Specialty Diagnoses / Procedures Referred By Contac t Referred To Contact [facility] Diagnoses Aphasia as late effect of cerebrovascular accident Cerebrovascular accident (CVA), unspecified mechanism (HCC) Procedures CONSULT TO SPEECH THERAPY OFFICE/OUTPATIENT [facility] 60-74 MINUTES Jaci Arroyo MD [address] [place] [address] [facility] [address] [address] Referral ID Status Reason Start Date Expiration Date Visits Requested Visits Authorized [id number] Pending Review Auto-Generat ed Referral 12/06/2022 12/06/2023 1 1 [facility] for referral (narrative)* Outpatient Procedure (Routine) - Closed Specialty Diagnoses / Procedures Referred By Contac t Referred To Contact [facility] Diagnoses Centrilobular emphysema (HCC) Procedures LUNG DIFFUSION CAPACITY (DLCO) DIFFUSING CAPACITY Kimo Mcgrath MD [address] [place] [address] [facility] [address] [place] [address] Referral ID Status Reason Start Date Expiration Date V isits Requested Visits Authorized [id number] Closed Auto-Generate d Referral 03/12/2023 04/10/2024 1 1 [facility] for referral (narrative)* Outpatient Procedure (Routine) - Pending Review Specialty Diagnoses / Procedures Referred By Contac t Referred To Contact [facility] Diagnoses Iron deficiency anemia due to chronic blood loss Procedures COLONOSCOPY DIAGNOSTIC COLONOSCOPY FLX DX W/COLLJ SPEC WHEN PFJorge Orr MD [address] [place] [address] [address] Referral ID Status Reason Start Date Expiration Date Visits Requested Visits Authorized [id number] Pending Review Auto-Generat ed Referral 04/07/2023 04/07/2024 1 1 * Outpatient Procedure (Routine) - Pending Review Specialty Diagnoses / Procedures Referred By Jed tompkins Referred To Contact [facility] [place] Diagnoses Iron deficiency anemia due to chronic blood loss Procedures EGD DIAGNOSTIC ESOPHAGOGASTRODUODENOSC OPY TRANSORAL DIAGNOSTIC Jorge Cardoso MD [address] [place] [address] [place] [phone] Referral ID Status Reason Start Date Expiration Date Visits Requested Visits Authorized [id number] Pending Review Auto-Generat ed Referral 04/07/2023 04/07/2024 1 1 [facility] for referral (narrative)* Outpatient Procedure (Routine) - Closed Specialty Diagnoses / Procedures Referred By Jed tompkins Referred To Contact [facility] [place] Diagnoses Iron deficiency anemia due to chronic blood loss Procedures COLONOSCOPY DIAGNOSTIC COLONOSCOPY FLX DX W/COLLJ SPEC WHEN Jorge Cooper MD [address] [place] [address] [place] [phone] Referral ID Status Reason Start Date Expiration Date V isits Requested Visits Authorized [id number] Closed Auto-Generate d Referral 04/07/2023 04/07/2024 1 1 * Outpatient Procedure (Routine) - Closed Specialty Diagnoses / Procedures Referred By Jed tompkins Referred To Contact [facility] Diagnoses Iron deficiency anemia due to chronic blood loss Procedures EGD DIAGNOSTIC ESOPHAGOGASTRODUODENOSC OPY TRANSORAL DIAGNOSTIC Jorge Cardoso MD [address] [place] [address] [facility] [address] [place] [address] Referral ID Status Reason Start Date Expiration Date V isits Requested Visits Authorized [id number] Closed Auto-Generate d Referral 04/07/2023 04/07/2024 1 1 [facility] for referral (narrative)* Outpatient Procedure (Routine) - Authorized Specialty Diagnoses / Procedures Referred By Contac t Referred To Contact [facility] [place] Diagnoses Occlusion of left carotid artery Procedures US CAROTID ARTERIES CRISTIANO VAS LAB DUPLEX SCAN EXTRACRANIAL ART COMPL BI STUDY Deanne Cruz DO [address] [place] [address] [place] [phone] Referral ID Status Reason Start Date Expiration Date Visits Requested Visits Authorized [id number] Authorized Auto-Generat ed Referral 3 06/17/2024 1 1 [facility] for referral (narrative)* Diagnostic Procedure Only (Routine) - Authorized Specialty Diagnoses / Procedures [facility] Diagnoses Pre-op evaluation Procedures US CAROTID BILATERAL Raine Valdivia MD [address] [place] [address] [id number] Referral ID Status Reason Start Date Expiration Date Visits Requested Visits Authorized [id number] Authorized Auto-Generat ed Referral 3 08/13/2024 1 1 [facility] for referral (narrative)* Outpatient Procedure (Routine) - Authorized Specialty Diagnoses / Procedures [facility] [place] Diagnoses Subclavian artery stenosis, left (HCC) Procedures US ARM ARTERIAL UNL VAS LAB DUP-SCAN UXTR ART/ARTL BPGS UNI/LMTD STUDY Deanne Cruz DO [address] [place] [address] [address] Referral ID Status Reason Start Date Expiration Date Visits Requested Visits Authorized [id number] Authorized Auto-Generat ed Referral 10/01/2023 09/30/2024 1 1 * Outpatient Procedure (Routine) - Authorized Specialty Diagnoses / Procedures Referred By Contac t Referred To Contact [facility] [place] Diagnoses Occlusion of left carotid artery Procedures US CAROTID ARTERIES CRISTIANO VAS LAB DUPLEX SCAN EXTRACRANIAL ART COMPL BI STUDY Deanne Cruz DO [address] [place] [address] [address] Referral ID Status Reason Start Date Expiration Date Visits Requested Visits Authorized [id number] Authorized Auto-Generat ed Referral 10/01/2023 09/30/2024 1 1 [facility] for referral (narrative)* Outpatient Procedure (Routine) - Authorized Specialty Diagnoses / Procedures Referred By Contac t Referred To Contact [facility] Diagnoses History of colonic polyps Procedures COLONOSCOPY SCREENING COLONOSCOPY FLX DX W/COLLJ SPEC WHEN Lacy Slade MD [address] [place] [address] [facility] [address] [place] [address] Referral ID Status Reason Start Date Expiration Date Visits Requested Visits Authorized [id number] Authorized Auto-Generat ed Referral 02/24/2024 02/23/2025 1 1 [facility] for referral (narrative)* Outpatient Procedure (Routine) - Authorized Specialty Diagnoses / Procedures Referred By Contac t Referred To Contact [facility] Diagnoses History of stroke Altered mental status, unspecified altered mental status type Procedures EPIL EEG ROUTINE ELECTROENCEPHALOGRAM REC COMA/SLEEP ONLY Dania Aj Jr., MD [address] [facility] [address] [place] [address] [place] [address] Tyler [place] [phone] Referral ID Status Reason Start Date Expiration Date Visits Requested Visits Authorized [id number] Authorized Auto-Generat ed Referral 03/09/2024 03/09/2025 1 [...] W/O CONTRAST Dania Aj Jr., MD [address] [facility] [address] [place] [address] [place] [address] Referral ID Status Reason Start Date Expiration Date Visits Requested Visits Authorized [id number] Pending Review Auto-Generat ed Referral 03/09/2024 04/08/2025 [...] W/O CONTRAST Dania Aj Jr., MD [address] [facility] [address] [place] [address] [place] [address] Referral ID Status Reason Start Date Expiration Date Visits Requested Visits Authorized [id number] Pending Review Auto-Generat ed Referral 03/09/2024 04/08/2025 [...] W/O CONTRAST MATERIAL Dania Aj Jr., MD [address] [place] [address] [place] [address] Referral ID Status Reason Start Date Expiration Date Visits Requested Visits Authorized [id number] Pending Review Auto-Generat ed Referral 03/09/2024 04/08/2025 [...] CONSULT TO PHYSICAL MEDICINE AND REHABILITATION OFFICE/OUTPATIENT [facility] 60 MINUTES Dania Aj Jr., MD [address] [place] [address] [facility] [place] [address] [place] [address] Referral ID Status Reason Start Date Expiration Date Visits Requested Visits Authorized [id number] Authorized PCP Requested Referral Auto-Generate d Referral 03/09/2024 03/09/2025 1 1 [facility] for referral (narrative)* Diagnostic Procedure Only (Routine) - New Request Specialty Diagnoses / Procedures Referred By Contac t Referred To Contact XR IMAGING Diagnoses Acute pain of left knee Procedures XR KNEE GENERAL 4V AP BOTH/PA BOTH/LAT/MERC LEFT RADIOLOGIC EXAM KNEE COMPLETE 4/MORE VIEWS Jessie Harmon APRN.LAUNDRY OPERATOR WASH ROOM [address] [place] [address] Xr Imaging [place] [address] Referral ID Status Reason Start Date Expiration Date Visits Requested Visits Authorized [id number] New Request Auto-Generat ed Referral 07/13/2024 08/12/2025 1 1 * Consult, Test, Treat (Routine) - Authorized Specialty Diagnoses / Procedures Referred By Contac t Referred To Contact Neurology Diagnoses Seizure disorder (HCC) Procedures CONSULT TO NEUROLOGY OFFICE/OUTPATIENT NEW HIGH MDM 60 MINUTES Jessie Harmon APRN.LAUNDRY OPERATOR WASH ROOM [address] [place] [address] Referral ID Status Reason Start Date Expiration Date Visits Requested Visits Authorized [id number] Authorized PCP Requested Referral 07/13/2024 07/13/2025 1 1 [facility] for referral (narrative)* Outpatient Procedure (Routine) - New Request Specialty Diagnoses / Procedures Referred By Contac t Referred To Contact [facility] Diagnoses Seizure (HCC) Procedures EPIL EEG LONG EEG EXTENDED MONITORING 61-119 MINUTES ELECTROENCEPHALOGRAM REC COMA/SLEEP ONLY Yessi Valdez MD [address] [place] [phone] [facility] [place] [address] Referral ID Status Reason Start Date Expiration Date Visits Requested Visits Authorized [id number] New Request Auto-Generat ed Referral 09/03/2024 09/03/2025 1 1 [facility] for visit Narrative* Outpatient Procedure (Routine) - Closed Specialty Diagnoses / Procedures Referred By Jed tompkins Referred To Contact [facility] Diagnoses Iron deficiency anemia due to chronic blood loss Procedures COLONOSCOPY DIAGNOSTIC COLONOSCOPY FLX DX W/COLLJ SPEC WHEN Jorge Cooper MD [address] [place] [address] [facility] [address] [place] [address] Referral ID Status Reason Start Date Expiration Date V isits Requested Visits Authorized [id number] Closed Auto-Generate d Referral 04/07/2023 04/07/2024 1 1 [facility] Summary Purpose Family History No Family History Records Found Relationship Condition Age at Onset Recorded Date/T padmini mother Diabetes mellitus Unknown Cardiac disease Unknown father Abdominal aortic aneurysm (AAA) Unknown Advance Directives No Advanced Directives Records FoundDocuments on File Type Date Recorded Patient [employer] Expl anation Advance Directive(s) 12/03/2017 8:51 AM Advance Directive Response Recorded Date/ Time Advance Directives No June 2:01am Living Will Yes August 17 2:06am Power of Preparation Supervisor Canning Yes August 17, 2021 2:06am Documents on File Type Date Recorded Patient [employer] Expl anation Advance Directive(s) 01/29/2022 10:58 AM Advance Directive(s) 12/03/2017 8:51 AM Documents on File Type Date Recorded Patient Mounter [employer] Expl anation Advance Directive(s) 01/29/2022 10:58 AM Documents on File Type Date Recorded Patient [employer] Expl anation Advance Directive(s) 01/29/2022 10:58 AM Advance Directive Response Recorded Date/ Time Advance Directives No June 1:01am Living Will Yes August 17 1:06am Power of Preparation Supervisor Canning Yes August 17, 2021 1:06am Advance Directive Response Recorded Date/ Time Name of Medical Power of Preparation Supervisor Canning August 16, 2022 10:14am Advance Directives No June 1:01am Living Will Yes August 16 10:14am Power of Preparation Supervisor Canning Yes August 16, 2022 10:14am Advance Directive Response Recorded Date/ Time Name of Medical Power of Preparation Supervisor Canning Eli Zee August 16, 2022 1:20pm Advance Directives No June 1:01am Living Will Yes August 16 1:20pm Power of Preparation Supervisor Canning Yes August 16, 2022 1:20pm Advance Directive Response Recorded Date/ Time Name of Medical Power of Preparation Supervisor Canning Eli Zee August 16, 2022 2:20pm Advance Directives No June 2:01am Living Will No November 11, 2022 1:18pm Power of Preparation Supervisor Canning No November 11 1:18pm Advance Directive Response Recorded Date/ Time Name of Medical Power of Preparation Supervisor Canning Eli Zee August 16, 2022 2:20pm Advance Directives No June 2:01am Living Will No November 11, 2022 3:46pm Power of Preparation Supervisor Canning No November 11 3 3:46pm Advance Directive Response Recorded Date/ Time Advance Directives No June 2:01am Living Will No November 11, 2022 3:46pm Power of Preparation Supervisor Canning No November 11 3 3:46pm Advance Directive Response Recorded Date/ Time Name of Medical Power of Preparation Supervisor Canning Eli Zee August 07, 2023 2:17pm Advance Directives No June 1:01am Living Will Yes August 07 2:17pm Power of Preparation Supervisor Canning Yes August 07, 024 2:17pm Chief Complaint and Reason for Visit Chief Complaint TIA TIA (cardiology) TIA (cardiology) TIA (cardiology) TIA (cardiology) TIA (cardiology) TIA (cardiology) TIA (cardiology) GROUP HOME BLOOD WORK G47.30- UNSPECIFIED SLEEP APNEA; CONF [...] IA. RX HERE ADMISSION EXAM LAB WORK [facility] LAB WORK ADMISSION EXAM LAB WORK Chief Complaint APHASIA/CVA/HEMIPLEG IA. RX HERE ADMISSION EXAM LAB WORK [facility] WORK ADMISSION EXAM LAB WORK LAB [...] reduction internal Right ankle open reduction internal [facility] LABWORK ADMISSION EXAM- PHYSICIAN OFFICE CLIN ASST ADMISSION EXAM - MD [facility] LAB[facility] ankle pain LABWORK LAB WORK [facility] WORK RIGHT ANKLE room 2 Reason [...] CONSULT TO ORTHOTIC/PROSTHETIC Sabiha Stevens MD [address] [address] Referral ID Status Reason Start Date Expiration Date V isits Requested Visits Authorized [id number] Ref Not Required 04/19/2022 06/18/2022 1 1 Specialty Diagnoses / Procedures Referred By Jed tompkins Referred To Contact [facility] Diagnoses Cerebrovascular accident (CVA), unspecified mechanism (HCC) Dysphasia Procedures CONSULT TO SPEECH THERAPY OFFICE/OUTPATIENT [facility] 60-74 MINUTES Jaci Arroyo MD [address] [place] [address] [facility] [address] [place] [address] Referral ID Status Reason Start Date Expiration Date Visits Requested Visits Authorized [id number] Pending Review Auto-Generat ed Referral 05/03/2022 05/03/2023 1 1 Specialty Diagnoses / Procedures Referred By Contac t Referred To Contact Diagnoses Anxiety Jaci Arroyo MD [address] [place] [address] Referral ID Status Reason Start Date Expiration Date V isits Requested Visits Authorized [id number] Authorized 1 1 Specialty Diagnoses / Procedures Referred By Contac t Referred To Contact Urology Diagnoses Balanitis Procedures CONSULT TO UROLOGY OFFICE/OUTPATIENT [facility] 60-74 MINUTES Jaci Arroyo MD [address] [place] [address] Referral ID Status Reason Start Date Expiration Date Visits Requested Visits Authorized [id number] Authorized PCP Requested Referral 08/16/2022 08/16/2023 1 1 Specialty Diagnoses / Procedures Referred By Contac t Referred To Contact Neurology Diagnoses Occlusion of left carotid artery Procedures CONSULT TO NEUROLOGY Robin Johansen MD [address] [place] [address] [address] Referral ID Status Reason Start Date Expiration Date Visits Requested Visits Authorized [id number] Ref Not Required PCP Requested Referral 09/03/2022 09/03/2023 1 1 Specialty Diagnoses / Procedures Referred By Contac t Referred To Contact [facility]monary [facility] Critical Care Medicine Diagnoses Shortness of breath COPD with exacerbation (HCC) Procedures CONSULT TO PULM/CRITICAL CARE OFFICE/OUTPATIENT [facility] 60-74 MINUTES Jaci Arroyo MD [address] [place] [address] Referral ID Status Reason Start Date Expiration Date Visits Requested Visits Authorized [id number] Authorized PCP Requested Referral 11/17/2022 11/17/2023 1 1 Specialty Diagnoses / Procedures Referred By Jed t Referred To Contact [facility] Diagnoses Right hemiplegia (HCC) Cerebrovascular accident (CVA), unspecified mechanism (HCC) Aphasia as late effect of cerebrovascular accident Procedures CONSULT TO SPEECH THERAPY OFFICE/OUTPATIENT NEW [facility]IGH [facility] 60-74 MINUTES Jaci Arroyo MD [address] [place] [address] [facility] [address] [place] [address] Referral ID Status Reason Start Date Expiration Date Visits Requested Visits Authorized [id number] Pending Review Auto-Generat ed Referral 12/10/2022 12/05/2023 1 1 Specialty Diagnoses / Procedures Referred By Jed t Referred To Contact [facility] Diagnoses Right hemiplegia (HCC) Cerebrovascular accident (CVA), unspecified mechanism (HCC) Procedures CONSULT TO CLINICAL PSYCHIATRIST OCCUPATIONAL THERAPY EVAL HIGH COMPLEX 60 MINS Jaci Arroyo MD [address] [place] [address] [facility] [address] [place] [address] Referral ID Status Reason Start Date Expiration Date Visits Requested Visits Authorized [id number] Pending Review Auto-Generat ed Referral 12/10/2022 12/05/2023 1 1 Specialty Diagnoses / Procedures Referred By Jed t Referred To Contact [facility] Diagnoses Right hemiplegia (HCC) Cerebrovascular accident (CVA), unspecified mechanism (HCC) Procedures CONSULT TO PHYSICAL THERAPY PHYSICAL THERAPY EVALUATION HIGH COMPLEX 45 MINS Jaci Arroyo MD [address] [place] [address] [facility] [address] [place] [address] Referral ID Status Reason Start Date Expiration Date Visits Requested Visits Authorized [id number] Pending Review Auto-Generat ed Referral 12/10/2022 12/05/2023 1 1 Specialty Diagnoses / Procedures Referred By Contac t Referred To Contact [facility] Diagnoses Cerebrovascular accident (CVA), unspecified mechanism (HCC) Procedures CONSULT TO PHYSICAL MEDICINE AND REHABILITATION OFFICE/OUTPATIENT [facility] 60-74 MINUTES Jaci Arroyo MD [address] [place] [address] [facility] [address] [place] [id number] Referral ID Status Reason Start Date Expiration Date Visits Requested Visits Authorized [id number] Authorized PCP Requested Referral Auto-Generate d Referral 02/14/2023 02/14/2024 1 1 Specialty Diagnoses / Procedures Referred By Contac t Referred To Contact General Surgery Diagnoses Iron deficiency anemia due to chronic blood loss Procedures CONSULT TO GENERAL SURGERY OFFICE/OUTPATIENT [facility] 60-74 MINUTES Jaci Arroyo MD [address] [place] [address] Referral ID Status Reason Start Date Expiration Date Visits Requested Visits Authorized [id number] Authorized PCP Requested Referral 03/28/2023 03/27/2024 1 1 Specialty Diagnoses / Procedures Referred By Contac t Referred To Contact CT IMAGING Diagnoses Iron deficiency anemia due to chronic blood loss Procedures CT ABD/PEL W IVCON CT ABD & PELVIS W/CONTRAST Jorge Cardoso MD [address] [place] [address] Ct Imaging [place] [address] Referral ID Status Reason Start Date Expiration Date Visits Requested Visits Authorized [id number] Pending Review Auto-Generat ed Referral 3 06/19/2024 1 1 Referral ID Status Reason Start Date Expiration Date V isits Requested Visits Authorized [id number] Closed Auto-Generat ed Referral Patient Cleared - Admin/Chairm an/Director advise to proceed or did not respond 05/31/2023 07/30/2023 2 2 Specialty Diagnoses / Procedures Referred By Contac t Referred To Contact Diagnoses Rectal mass Procedures REFER TO PACC - PRE ANESTHESIA CONSULTATION CLINIC OFFICE/OUTPATIENT [facility] 60-74 MINUTES Nacho Sandoval MD [address] [place] [address] Referral ID Status Reason Start Date Expiration Date Visits Requested Visits Authorized [id number] Authorized PCP Requested Referral 3 06/19/2024 1 1 Specialty Diagnoses / Procedures Referred By Contac t Referred [facility] Diagnoses Rectal mass Procedures ECG COMPLETE ECG ROUTINE ECG W/LEAST 12 LDS W/I&R Nacho Sandoval MD [address] [place] [address] [facility] [place] [address] Referral ID Status Reason Start Date Expiration Date Visits Requested Visits Authorized [id number] Pending Review Auto-Generat ed Referral 3 06/19/2024 1 1 Specialty Diagnoses / Procedures Referred By Contac t Referred To Contact Diagnoses Rectal mass Procedures CONSULT TO [facility] OFFICE/OUTPATIENT [facility] 60-74 MINUTES Nacho Sandoval MD [address] [place] [address] Referral ID Status Reason Start Date Expiration Date Visits Requested Visits Authorized [id number] Authorized PCP Requested Referral 3 06/19/2024 1 1 Specialty Diagnoses / Procedures Referred By Contac t Referred To Contact Vascular Medicine Diagnoses Cerebrovascular accident (CVA), unspecified mechanism (HCC) Procedures CONSULT TO VASCULAR MEDICINE OFFICE/OUTPATIENT [facility] 60-74 MINUTES Nacho Sandoval MD [address] [place] [address] Referral ID Status Reason Start Date Expiration Date Visits Requested Visits Authorized [id number] Authorized PCP Requested Referral 3 06/20/2024 1 1 Specialty Diagnoses / Procedures Referred By Contac t Referred To Contact Cardiology Diagnoses Paroxysmal atrial fibrillation (HCC) Preoperative examination Procedures CONSULT TO CARDIOLOGY OFFICE/OUTPATIENT [facility] 60-74 MINUTES Nacho Sandoval MD [address] [place] [address] Referral ID Status Reason Start Date Expiration Date Visits Requested Visits Authorized [id number] Authorized PCP Requested Referral 3 06/23/2024 1 1 Specialty Diagnoses / Procedures Referred By Contac t Referred To Contact Diagnoses DARON (obstructive sleep apnea) Procedures CONSULT TO SLEEP MEDICINE - ADULT OFFICE/OUTPATIENT [facility] 60 MINUTES Dania Aj Jr., MD [address] [place] [address] Referral ID Status Reason Start Date Expiration Date Visits Requested Visits Authorized [id number] Authorized PCP Requested Referral 09/20/2023 09/19/2024 1 1 Specialty Diagnoses / Procedures Referred By Contac t Referred To Contact [facility] Diagnoses 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) Right hemiplegia (HCC) Dysphasia Aphasia as late effect of cerebrovascular accident Cerebrovascular accident (CVA), unspecified mechanism (HCC) Procedures CONSULT TO SPEECH THERAPY OFFICE/OUTPATIENT [facility] 60 MINUTES Jaci Arroyo MD [address] [place] [address] [facility] [address] [place] [address] Referral ID Status Reason Start Date Expiration Date Visits Requested Visits Authorized [id number] Pending Review Auto-Generat ed Referral 11/04/2023 11/03/2024 1 1 Specialty Diagnoses / Procedures Referred By Contac t Referred To Contact Neurosurgery Diagnoses Cerebral aneurysm Procedures CONSULT TO NEUROSURGERY OFFICE/OUTPATIENT [facility] 60 MINUTES Dania Aj Jr., MD [address] [facility] [address] [place] [address] Referral ID Status Reason Start Date Expiration Date Visits Requested Visits Authorized [id number] Authorized PCP Requested Referral 05/08/2024 08/06/2024 1 1 Specialty Diagnoses / [facility] [...] W/O CONTRAST Dania Aj Jr., MD [address] [facility] [address] [place] [address] [facility]95 Referral ID Status Reason Start Date Expiration Date V isits Requested Visits Authorized [id number] Closed Auto-Generate d Referral 03/25/2024 05/24/2024 1 1 Specialty Diagnoses / Procedures [facility] Contact [...] W/O CONTRAST Dania Aj Jr., MD [address] [facility] [address] [place] [address] [place] [address] Referral ID Status Reason Start Date Expiration Date V isits Requested Visits Authorized [id number] Closed Auto-Generate d Referral 03/25/2024 05/24/2024 1 1 Specialty Diagnoses / Procedures [facility] [...] W/O CONTRAST MATERIAL Dania Aj Jr., MD [address] [facility] [address] [place] [address] [facility]95 Referral ID Status Reason Start Date Expiration Date V isits Requested Visits Authorized [id number] Closed Auto-Generate d Referral 03/25/2024 05/24/2024 1 1 Specialty Diagnoses / Procedures Referred By Contac t Referred To Contact [facility] Diagnoses History of stroke Spasticity Procedures CONSULT TO PHYSICAL MEDICINE AND REHABILITATION OFFICE/OUTPATIENT [facility] 60 MINUTES Michelle Webb PA-C [address] [place] [address] [facility] [place] [address] Referral ID Status Reason Start Date Expiration Date Visits Requested Visits Authorized [id number] Authorized PCP Requested Referral Auto-Generate d Referral 4 05/20/2025 1 1 Specialty Diagnoses / Procedures Referred By Contac t Referred To Contact Diagnoses Anxiety Chronic insomnia Jaci Arroyo MD [address] [place] [address] Referral ID Status Reason Start Date Expiration Date V isits Requested Visits Authorized [id number] Authorized 03/04/2024 04/03/2025 1 1 Specialty Diagnoses / Procedures Referred By Contac t Referred To Contact CT IMAGING Diagnoses Cerebral aneurysm without rupture Procedures CTA NECK W IVCON CT ANGIOGRAPHY NECK W/CONTRAST/NONCONTRAST Gloria Sawyer MD [address] [place] [address] [facility]95 Referral ID Status Reason Start Date Expiration Date Visits Requested Visits Authorized [id number] New Request Auto-Generat ed Referral 4 07/01/2025 1 1 Specialty Diagnoses / Procedures Referred By Contac t Referred To Contact CT IMAGING Diagnoses Cerebral aneurysm without rupture Procedures CTA HEAD W IVCON CT ANGIOGRAPHY HEAD W/CONTRAST/NONCONTRAST Gloria Sawyer MD [address] [place] [address] [place] [address] Referral ID Status Reason Start Date Expiration Date Visits Requested Visits Authorized [id number] New Request Auto-Generat ed Referral 4 07/01/2025 1 1 Specialty Diagnoses / Procedures Referred By Contac t Referred To Contact Neurology Diagnoses Altered mental status, unspecified altered mental status type Nonspecific abnormal electroencephalogram (EEG) Procedures CONSULT TO NEUROLOGY OFFICE/OUTPATIENT NEW HIGH MDM 60 MINUTES Michelle Webb PA-C [address] [place] [address] Referral ID Status Reason Start Date Expiration Date Visits Requested Visits Authorized [id number] Authorized PCP Requested Referral 4 07/22/2025 1 1 Additional Source Comments (unrecognized sect ion and content) No Status Records FoundNo Status Records FoundNo Status Records FoundNo Status Records FoundNo Status Records FoundNo Status Records FoundNo Status Records Found INFORMATION SOURCE (unrecogn ized section and content) DATE CREATED AUTHOR 11/12/2018 [facility] DATE CREATED AUTHOR AUTHOR'S ORGANIZ ATION 04/20/2023 [facility] DATE CREATED AUTHOR AUTHOR'S ORGANIZ ATION 08/03/2023 [facility] ([place]) DATE CREATED AUTHOR AUTHOR'S ORGANIZ ATION 07/08/2024 [facility] DATE CREATED AUTHOR AUTHOR'S ORGANIZ ATION 08/24/2024 [facility] DATE CREATED AUTHOR AUTHOR'S ORGANIZ ATION 10/30/2024 [facility] DATE CREATED AUTHOR AUTHOR'S ORGANIZ ATION 03/14/2025 [facility] Source Comments (unrecognize d section and content) In the event this informatio n is protected by the Federal Confidentiality of Alcohol and Drug Abuse Patient Records regulations: The Federal rules restrict any use of the information to criminally investigate or prosecute any alcohol or drug abuse patient.[facility] the event this information is protected by the Federal Confidentiality of Alcohol and Drug Abuse Patient Records regulations: The Federal rules restrict any use of the information to criminally investigate or prosecute any alcohol or drug abuse patient.[facility]In the event this information is protected by the Federal Confidentiality of Alcohol and Drug Abuse Patient Records regulations: The Federal rules restrict any use of the information to criminally investigate or prosecute any alcohol or drug abuse patient.[facility]In the event this information is protected by the Federal Confidentiality of Alcohol and Drug Abuse Patient Records regulations: The Federal rules restrict any use of the information to criminally investigate or prosecute any alcohol or drug abuse patient.[facility]In the event this information is protected by the Federal Confidentiality of Alcohol and Drug Abuse Patient Records regulations: The Federal rules restrict any use of the information to criminally investigate or prosecute any alcohol or drug abuse patient.[facility]In the event this information is protected by the Federal Confidentiality of Alcohol and Drug Abuse Patient Records regulations: The Federal rules restrict any use of the information to criminally investigate or prosecute any alcohol or drug abuse patient.[facility] SouthIn the event this information is protected by the Federal Confidentiality of Alcohol and Drug Abuse Patient Records regulations: The Federal rules restrict any use of the information to criminally investigate or prosecute any alcohol or drug abuse patient.[facility]In the event this information is protected by the Federal Confidentiality of Alcohol and Drug Abuse Patient Records regulations: The Federal rules restrict any use of the information to criminally investigate or prosecute any alcohol or drug abuse patient.[facility]In the event this information is protected by the Federal Confidentiality of Alcohol and Drug Abuse Patient Records regulations: The Federal rules restrict any use of the information to criminally investigate or prosecute any alcohol or drug abuse patient.[facility]In the event this information is protected by the Federal Confidentiality of Alcohol and Drug Abuse Patient Records regulations: The Federal rules restrict any use of the information to criminally investigate or prosecute any alcohol or drug abuse patient.[facility]In the event this information is protected by the Federal Confidentiality of Alcohol and Drug Abuse Patient Records regulations: The Federal rules restrict any use of the information to criminally investigate or prosecute any alcohol or drug abuse patient.[facility] SouthIn the event this information is protected by the Federal Confidentiality of Alcohol and Drug Abuse Patient Records regulations: The Federal rules restrict any use of the information to criminally investigate or prosecute any alcohol or drug abuse patient.[facility]In the event this information is protected by the Federal Confidentiality of Alcohol and Drug Abuse Patient Records regulations: The Federal rules restrict any use of the information to criminally investigate or prosecute any alcohol or drug abuse patient.[facility]In the event this information is protected by the Federal Confidentiality of Alcohol and Drug Abuse Patient Records regulations: The Federal rules restrict any use of the information to criminally investigate or prosecute any alcohol or drug abuse patient.[facility]In the event this information is protected by the Federal Confidentiality of Alcohol and Drug Abuse Patient Records regulations: The Federal rules restrict any use of the information to criminally investigate or prosecute any alcohol or drug abuse patient.[facility] SouthIn the event this information is protected by [...] or prosecute any alcohol or drug abuse patient.[facility] SouthIn the event this information is protected by the Federal Confidentiality of Alcohol and Drug Abuse Patient Records regulations: The Federal rules restrict any use of the information to criminally investigate or prosecute any alcohol or drug abuse patient.[facility] SouthIn the event this information is protected by the Federal Confidentiality of Alcohol and Drug Abuse Patient Records regulations: The Federal rules restrict any use of the information to criminally investigate or prosecute any alcohol or drug abuse patient.[facility] SouthIn the event this information is protected by the Federal Confidentiality of Alcohol and Drug Abuse Patient Records regulations: The Federal rules restrict any use of the information to criminally investigate or prosecute any alcohol or drug abuse patient.[facility] SouthIn the event this information is protected by the Federal Confidentiality of Alcohol and Drug Abuse Patient Records regulations: The Federal rules restrict any use of the information to criminally investigate or prosecute any alcohol or drug abuse patient.[facility]In the event this information is protected by the Federal Confidentiality of Alcohol and Drug Abuse Patient Records regulations: The Federal rules restrict any use of the information to criminally investigate or prosecute any alcohol or drug abuse patient.[facility] SouthIn the event this information is protected by the Federal Confidentiality of Alcohol and Drug Abuse Patient Records regulations: The Federal rules restrict any use of the information to criminally investigate or prosecute any alcohol or drug abuse patient.[facility]In the event this information is protected by the Federal Confidentiality of Alcohol and Drug Abuse Patient Records regulations: The Federal rules restrict any use of the information to criminally investigate or prosecute any alcohol or drug abuse patient.[facility]In the event this information is protected by the Federal Confidentiality of Alcohol and Drug Abuse Patient Records regulations: The Federal rules restrict any use of the information to criminally investigate or prosecute any alcohol or drug abuse patient.[facility]In the event this information is protected by the Federal Confidentiality of Alcohol and Drug Abuse Patient Records regulations: The Federal rules restrict any use of the information to criminally investigate or prosecute any alcohol or drug abuse patient.[facility]In the event this information is protected by the Federal Confidentiality of Alcohol and Drug Abuse Patient Records regulations: The Federal rules restrict any use of the information to criminally investigate or prosecute any alcohol or drug abuse patient.[facility]In the event this information is protected by the Federal Confidentiality of Alcohol and Drug Abuse Patient Records regulations: The Federal rules restrict any use of the information to criminally investigate or prosecute any alcohol or drug abuse patient.[facility]In the event this information is protected by the Federal Confidentiality of Alcohol and Drug Abuse Patient Records regulations: The Federal rules restrict any use of the information to criminally investigate or prosecute any alcohol or drug abuse patient.[facility]In the event this information is protected by the Federal Confidentiality of Alcohol and Drug Abuse Patient Records regulations: The Federal rules restrict any use of the information to criminally investigate or prosecute any alcohol or drug abuse patient.[facility]In the event this information is protected by the Federal Confidentiality of Alcohol and Drug Abuse Patient Records regulations: The Federal rules restrict any use of the information to criminally investigate or prosecute any alcohol or drug abuse patient.[facility]In the event this information is protected by the Federal Confidentiality of Alcohol and Drug Abuse Patient Records regulations: The Federal rules restrict any use of the information to criminally investigate or prosecute any alcohol or drug abuse patient.[facility]In the event this information is protected by the Federal Confidentiality of Alcohol and Drug Abuse Patient Records regulations: The Federal rules restrict any use of the information to criminally investigate or prosecute any alcohol or drug abuse patient.[facility]In the event this information is protected by the Federal Confidentiality of Alcohol and Drug Abuse Patient Records regulations: The Federal rules restrict any use of the information to criminally investigate or prosecute any alcohol or drug abuse patient.[facility]In the event this information is protected by the Federal Confidentiality of Alcohol and Drug Abuse Patient Records regulations: The Federal rules restrict any use of the information to criminally investigate or prosecute any alcohol or drug abuse patient.[facility]In the event this information is protected by the Federal Confidentiality of Alcohol and Drug Abuse Patient Records regulations: The Federal rules restrict any use of the information to criminally investigate or prosecute any alcohol or drug abuse patient.[facility]In the event this information is protected by the Federal Confidentiality of Alcohol and Drug Abuse Patient Records regulations: The Federal rules restrict any use of the information to criminally investigate or prosecute any alcohol or drug abuse patient.[facility]In the event this information is protected by the Federal Confidentiality of Alcohol and Drug Abuse Patient Records regulations: The Federal rules restrict any use of the information to criminally investigate or prosecute any alcohol or drug abuse patient.[facility]In the event this information is protected by the Federal Confidentiality of Alcohol and Drug Abuse Patient Records regulations: The Federal rules restrict any use of the information to criminally investigate or prosecute any alcohol or drug abuse patient.[facility]In the event this information is protected by the Federal Confidentiality of Alcohol and Drug Abuse Patient Records regulations: The Federal rules restrict any use of the information to criminally investigate or prosecute any alcohol or drug abuse patient.[facility]In the event this information is protected by the Federal Confidentiality of Alcohol and Drug Abuse Patient Records regulations: The Federal rules restrict any use of the information to criminally investigate or prosecute any alcohol or drug abuse patient.[facility]In the event this information is protected by the Federal Confidentiality of Alcohol and Drug Abuse Patient Records regulations: The Federal rules restrict any use of the information to criminally investigate or prosecute any alcohol or drug abuse patient.[facility]In the event this information is protected by the Federal Confidentiality of Alcohol and Drug Abuse Patient Records regulations: The Federal rules restrict any use of the information to criminally investigate or prosecute any alcohol or drug abuse patient.[facility]In the event this information is protected by the Federal Confidentiality of Alcohol and Drug Abuse Patient Records regulations: The Federal rules restrict any use of the information to criminally investigate or prosecute any alcohol or drug abuse patient.[facility]In the event this information is protected by the Federal Confidentiality of Alcohol and Drug Abuse Patient Records regulations: The Federal rules restrict any use of the information to criminally investigate or prosecute any alcohol or drug abuse patient.[facility]In the event this information is protected by the Federal Confidentiality of Alcohol and Drug Abuse Patient Records regulations: The Federal rules restrict any use of the information to criminally investigate or prosecute any alcohol or drug abuse patient.[facility]In the event this information is protected by the Federal Confidentiality of Alcohol and Drug Abuse Patient Records regulations: The Federal rules restrict any use of the information to criminally investigate or prosecute any alcohol or drug abuse patient.[facility]In the event this information is protected by the Federal Confidentiality of Alcohol and Drug Abuse Patient Records regulations: The Federal rules restrict any use of the information to criminally investigate or prosecute any alcohol or drug abuse patient.[facility]In the event this information is protected by the Federal Confidentiality of Alcohol and Drug Abuse Patient Records regulations: The Federal rules restrict any use of the information to criminally investigate or prosecute any alcohol or drug abuse patient.[facility]In the event this information is protected by the Federal Confidentiality of Alcohol and Drug Abuse Patient Records regulations: The Federal rules restrict any use of the information to criminally investigate or prosecute any alcohol or drug abuse patient.[facility]In the event this information is protected by the Federal Confidentiality of Alcohol and Drug Abuse Patient Records regulations: The Federal rules restrict any use of the information to criminally investigate or prosecute any alcohol or drug abuse patient.[facility]In the event this information is protected by the Federal Confidentiality of Alcohol and Drug Abuse Patient Records regulations: The Federal rules restrict any use of the information to criminally investigate or prosecute any alcohol or drug abuse patient.[facility]In the event this information is protected by the Federal Confidentiality of Alcohol and Drug Abuse Patient Records regulations: The Federal rules restrict any use of the information to criminally investigate or prosecute any alcohol or drug abuse patient.[facility]In the event this information is protected by the Federal Confidentiality of Alcohol and Drug Abuse Patient Records regulations: The Federal rules restrict any use of the information to criminally investigate or prosecute any alcohol or drug abuse patient.[facility]In the event this information is protected by the Federal Confidentiality of Alcohol and Drug Abuse Patient Records regulations: The Federal rules restrict any use of the information to criminally investigate or prosecute any alcohol or drug abuse patient.[facility]In the event this information is protected by the Federal Confidentiality of Alcohol and Drug Abuse Patient Records regulations: The Federal rules restrict any use of the information to criminally investigate or prosecute any alcohol or drug abuse patient.[facility]In the event this information is protected by the Federal Confidentiality of Alcohol and Drug Abuse Patient Records regulations: The Federal rules restrict any use of the information to criminally investigate or prosecute any alcohol or drug abuse patient.[facility]In the event this information is protected by the Federal Confidentiality of Alcohol and Drug Abuse Patient Records regulations: The Federal rules restrict any use of the information to criminally investigate or prosecute any alcohol or drug abuse patient.[facility]In the event this information is protected by the Federal Confidentiality of Alcohol and Drug Abuse Patient Records regulations: The Federal rules restrict any use of the information to criminally investigate or prosecute any alcohol or drug abuse patient.[facility]In the event this information is protected by the Federal Confidentiality of Alcohol and Drug Abuse Patient Records regulations: The Federal rules restrict any use of the information to criminally investigate or prosecute any alcohol or drug abuse patient.[facility]In the event this information is protected by the Federal Confidentiality of Alcohol and Drug Abuse Patient Records regulations: The Federal rules restrict any use of the information to criminally investigate or prosecute any alcohol or drug abuse patient.[facility]In the event this information is protected by the Federal Confidentiality of Alcohol and Drug Abuse Patient Records regulations: The Federal rules restrict any use of the information to criminally investigate or prosecute any alcohol or drug abuse patient.[facility]In the event this information is protected by the Federal Confidentiality of Alcohol and Drug Abuse Patient Records regulations: The Federal rules restrict any use of the information to criminally investigate or prosecute any alcohol or drug abuse patient.[facility]In the event this information is protected by the Federal Confidentiality of Alcohol and Drug Abuse Patient Records regulations: The Federal rules restrict any use of the information to criminally investigate or prosecute any alcohol or drug abuse patient.[facility]In the event this information is protected by the Federal Confidentiality of Alcohol and Drug Abuse Patient Records regulations: The Federal rules restrict any use of the information to criminally investigate or prosecute any alcohol or drug abuse patient.[facility] SouthIn the event this information is protected by [...] or prosecute any alcohol or drug abuse patient.[facility]In the event this information is protected by the Federal Confidentiality of Alcohol and Drug Abuse Patient Records regulations: The Federal rules restrict any use of the information to criminally investigate or prosecute any alcohol or drug abuse patient.[facility]In the event this information is protected by the Federal Confidentiality of Alcohol and Drug Abuse Patient Records regulations: The Federal rules restrict any use of the information to criminally investigate or prosecute any alcohol or drug abuse patient.[facility]In the event this information is protected by the Federal Confidentiality of Alcohol and Drug Abuse Patient Records regulations: The Federal rules restrict any use of the information to criminally investigate or prosecute any alcohol or drug abuse patient.[facility]In the event this information is protected by the Federal Confidentiality of Alcohol and Drug Abuse Patient Records regulations: The Federal rules restrict any use of the information to criminally investigate or prosecute any alcohol or drug abuse patient.[facility]In the event this information is protected by the Federal Confidentiality of Alcohol and Drug Abuse Patient Records regulations: The Federal rules restrict any use of the information to criminally investigate or prosecute any alcohol or drug abuse patient.[facility]In the event this information is protected by the Federal Confidentiality of Alcohol and Drug Abuse Patient Records regulations: The Federal rules restrict any use of the information to criminally investigate or prosecute any alcohol or drug abuse patient.[facility]In the event this information is protected by the Federal Confidentiality of Alcohol and Drug Abuse Patient Records regulations: The Federal rules restrict any use of the information to criminally investigate or prosecute any alcohol or drug abuse patient.[facility]In the event this information is protected by the Federal Confidentiality of Alcohol and Drug Abuse Patient Records regulations: The Federal rules restrict any use of the information to criminally investigate or prosecute any alcohol or drug abuse patient.[facility]In the event this information is protected by the Federal Confidentiality of Alcohol and Drug Abuse Patient Records regulations: The Federal rules restrict any use of the information to criminally investigate or prosecute any alcohol or drug abuse patient.[facility]In the event this information is protected by the Federal Confidentiality of Alcohol and Drug Abuse Patient Records regulations: The Federal rules restrict any use of the information to criminally investigate or prosecute any alcohol or drug abuse patient.[facility]In the event this information is protected by the Federal Confidentiality of Alcohol and Drug Abuse Patient Records regulations: The Federal rules restrict any use of the information to criminally investigate or prosecute any alcohol or drug abuse patient.[facility]In the event this information is protected by the Federal Confidentiality of Alcohol and Drug Abuse Patient Records regulations: The Federal rules restrict any use of the information to criminally investigate or prosecute any alcohol or drug abuse patient.[facility]In the event this information is protected by the Federal Confidentiality of Alcohol and Drug Abuse Patient Records regulations: The Federal rules restrict any use of the information to criminally investigate or prosecute any alcohol or drug abuse patient.[facility]In the event this information is protected by the Federal Confidentiality of Alcohol and Drug Abuse Patient Records regulations: The Federal rules restrict any use of the information to criminally investigate or prosecute any alcohol or drug abuse patient.[facility]In the event this information is protected by the Federal Confidentiality of Alcohol and Drug Abuse Patient Records regulations: The Federal rules restrict any use of the information to criminally investigate or prosecute any alcohol or drug abuse patient.[facility]In the event this information is protected by the Federal Confidentiality of Alcohol and Drug Abuse Patient Records regulations: The Federal rules restrict any use of the information to criminally investigate or prosecute any alcohol or drug abuse patient.[facility]In the event this information is protected by the Federal Confidentiality of Alcohol and Drug Abuse Patient Records regulations: The Federal rules restrict any use of the information to criminally investigate or prosecute any alcohol or drug abuse patient.[facility]In the event this information is protected by the Federal Confidentiality of Alcohol and Drug Abuse Patient Records regulations: The Federal rules restrict any use of the information to criminally investigate or prosecute any alcohol or drug abuse patient.[facility]In the event this information is protected by the Federal Confidentiality of Alcohol and Drug Abuse Patient Records regulations: The Federal rules restrict any use of the information to criminally investigate or prosecute any alcohol or drug abuse patient.[facility]In the event this information is protected by the Federal Confidentiality of Alcohol and Drug Abuse Patient Records regulations: The Federal rules restrict any use of the information to criminally investigate or prosecute any alcohol or drug abuse patient.[facility]In the event this information is protected by the Federal Confidentiality of Alcohol and Drug Abuse Patient Records regulations: The Federal rules restrict any use of the information to criminally investigate or prosecute any alcohol or drug abuse patient.[facility]In the event this information is protected by the Federal Confidentiality of Alcohol and Drug Abuse Patient Records regulations: The Federal rules restrict any use of the information to criminally investigate or prosecute any alcohol or drug abuse patient.[facility]In the event this information is protected by the Federal Confidentiality of Alcohol and Drug Abuse Patient Records regulations: The Federal rules restrict any use of the information to criminally investigate or prosecute any alcohol or drug abuse patient.[facility]In the event this information is protected by the Federal Confidentiality of Alcohol and Drug Abuse Patient Records regulations: The Federal rules restrict any use of the information to criminally investigate or prosecute any alcohol or drug abuse patient.[facility]In the event this information is protected by the Federal Confidentiality of Alcohol and Drug Abuse Patient Records regulations: The Federal rules restrict any use of the information to criminally investigate or prosecute any alcohol or drug abuse patient.[facility]In the event this information is protected by the Federal Confidentiality of Alcohol and Drug Abuse Patient Records regulations: The Federal rules restrict any use of the information to criminally investigate or prosecute any alcohol or drug abuse patient.[facility]In the event this information is protected by the Federal Confidentiality of Alcohol and Drug Abuse Patient Records regulations: The Federal rules restrict any use of the information to criminally investigate or prosecute any alcohol or drug abuse patient.[facility]In the event this information is protected by the Federal Confidentiality of Alcohol and Drug Abuse Patient Records regulations: The Federal rules restrict any use of the information to criminally investigate or prosecute any alcohol or drug abuse patient.[facility]In the event this information is protected by the Federal Confidentiality of Alcohol and Drug Abuse Patient Records regulations: The Federal rules restrict any use of the information to criminally investigate or prosecute any alcohol or drug abuse patient.[facility]In the event this information is protected by the Federal Confidentiality of Alcohol and Drug Abuse Patient Records regulations: The Federal rules restrict any use of the information to criminally investigate or prosecute any alcohol or drug abuse patient.[facility]In the event this information is protected by the Federal Confidentiality of Alcohol and Drug Abuse Patient Records regulations: The Federal rules restrict any use of the information to criminally investigate or prosecute any alcohol or drug abuse patient.[facility]In the event this information is protected by the Federal Confidentiality of Alcohol and Drug Abuse Patient Records regulations: The Federal rules restrict any use of the information to criminally investigate or prosecute any alcohol or drug abuse patient.[facility]In the event this information is protected by the Federal Confidentiality of Alcohol and Drug Abuse Patient Records regulations: The Federal rules restrict any use of the information to criminally investigate or prosecute any alcohol or drug abuse patient.[facility]In the event this information is protected by the Federal Confidentiality of Alcohol and Drug Abuse Patient Records regulations: The Federal rules restrict any use of the information to criminally investigate or prosecute any alcohol or drug abuse patient.[facility]In the event this information is protected by the Federal Confidentiality of Alcohol and Drug Abuse Patient Records regulations: The Federal rules restrict any use of the information to criminally investigate or prosecute any alcohol or drug abuse patient.[facility]In the event this information is protected by the Federal Confidentiality of Alcohol and Drug Abuse Patient Records regulations: The Federal rules restrict any use of the information to criminally investigate or prosecute any alcohol or drug abuse patient.[facility]In the event this information is protected by the Federal Confidentiality of Alcohol and Drug Abuse Patient Records regulations: The Federal rules restrict any use of the information to criminally investigate or prosecute any alcohol or drug abuse patient.[facility] SouthIn the event this information is protected by the Federal Confidentiality of Alcohol and Drug Abuse Patient Records regulations: The Federal rules restrict any use of the information to criminally investigate or prosecute any alcohol or drug abuse patient.[facility]In the event this information is protected by the Federal Confidentiality of Alcohol and Drug Abuse Patient Records regulations: The Federal rules restrict any use of the information to criminally investigate or prosecute any alcohol or drug abuse patient.[facility]In the event this information is protected by the Federal Confidentiality of Alcohol and Drug Abuse Patient Records regulations: The Federal rules restrict any use of the information to criminally investigate or prosecute any alcohol or drug abuse patient.[facility]In the event this information is protected by the Federal Confidentiality of Alcohol and Drug Abuse Patient Records regulations: The Federal rules restrict any use of the information to criminally investigate or prosecute any alcohol or drug abuse patient.[facility]In the event this information is protected by the Federal Confidentiality of Alcohol and Drug Abuse Patient Records regulations: The Federal rules restrict any use of the information to criminally investigate or prosecute any alcohol or drug abuse patient.[facility]In the event this information is protected by the Federal Confidentiality of Alcohol and Drug Abuse Patient Records regulations: The Federal rules restrict any use of the information to criminally investigate or prosecute any alcohol or drug abuse patient.[facility]In the event this information is protected by the Federal Confidentiality of Alcohol and Drug Abuse Patient Records regulations: The Federal rules restrict any use of the information to criminally investigate or prosecute any alcohol or drug abuse patient.[facility]In the event this information is protected by the Federal Confidentiality of Alcohol and Drug Abuse Patient Records regulations: The Federal rules restrict any use of the information to criminally investigate or prosecute any alcohol or drug abuse patient.[facility]In the event this information is protected by the Federal Confidentiality of Alcohol and Drug Abuse Patient Records regulations: The Federal rules restrict any use of the information to criminally investigate or prosecute any alcohol or drug abuse patient.[facility]In the event this information is protected by the Federal Confidentiality of Alcohol and Drug Abuse Patient Records regulations: The Federal rules restrict any use of the information to criminally investigate or prosecute any alcohol or drug abuse patient.[facility]In the event this information is protected by the Federal Confidentiality of Alcohol and Drug Abuse Patient Records regulations: The Federal rules restrict any use of the information to criminally investigate or prosecute any alcohol or drug abuse patient.[facility] SouthIn the event this information is protected by [...] or prosecute any alcohol or drug abuse patient.[facility]In the event this information is protected by the Federal Confidentiality of Alcohol and Drug Abuse Patient Records regulations: The Federal rules restrict any use of the information to criminally investigate or prosecute any alcohol or drug abuse patient.[facility]In the event this information is protected by the Federal Confidentiality of Alcohol and Drug Abuse Patient Records regulations: The Federal rules restrict any use of the information to criminally investigate or prosecute any alcohol or drug abuse patient.[facility]In the event this information is protected by the Federal Confidentiality of Alcohol and Drug Abuse Patient Records regulations: The Federal rules restrict any use of the information to criminally investigate or prosecute any alcohol or drug abuse patient.[facility]In the event this information is protected by the Federal Confidentiality of Alcohol and Drug Abuse Patient Records regulations: The Federal rules restrict any use of the information to criminally investigate or prosecute any alcohol or drug abuse patient.[facility]In the event this information is protected by the Federal Confidentiality of Alcohol and Drug Abuse Patient Records regulations: The Federal rules restrict any use of the information to criminally investigate or prosecute any alcohol or drug abuse patient.[facility]In the event this information is protected by the Federal Confidentiality of Alcohol and Drug Abuse Patient Records regulations: The Federal rules restrict any use of the information to criminally investigate or prosecute any alcohol or drug abuse patient.[facility]In the event this information is protected by the Federal Confidentiality of Alcohol and Drug Abuse Patient Records regulations: The Federal rules restrict any use of the information to criminally investigate or prosecute any alcohol or drug abuse patient.[facility]In the event this information is protected by the Federal Confidentiality of Alcohol and Drug Abuse Patient Records regulations: The Federal rules restrict any use of the information to criminally investigate or prosecute any alcohol or drug abuse patient.[facility]In the event this information is protected by the Federal Confidentiality of Alcohol and Drug Abuse Patient Records regulations: The Federal rules restrict any use of the information to criminally investigate or prosecute any alcohol or drug abuse patient.[facility]In the event this information is protected by the Federal Confidentiality of Alcohol and Drug Abuse Patient Records regulations: The Federal rules restrict any use of the information to criminally investigate or prosecute any alcohol or drug abuse patient.[facility]In the event this information is protected by the Federal Confidentiality of Alcohol and Drug Abuse Patient Records regulations: The Federal rules restrict any use of the information to criminally investigate or prosecute any alcohol or drug abuse patient.[facility]In the event this information is protected by the Federal Confidentiality of Alcohol and Drug Abuse Patient Records regulations: The Federal rules restrict any use of the information to criminally investigate or prosecute any alcohol or drug abuse patient.[facility]In the event this information is protected by the Federal Confidentiality of Alcohol and Drug Abuse Patient Records regulations: The Federal rules restrict any use of the information to criminally investigate or prosecute any alcohol or drug abuse patient.[facility]In the event this information is protected by the Federal Confidentiality of Alcohol and Drug Abuse Patient Records regulations: The Federal rules restrict any use of the information to criminally investigate or prosecute any alcohol or drug abuse patient.[facility]In the event this information is protected by the Federal Confidentiality of Alcohol and Drug Abuse Patient Records regulations: The Federal rules restrict any use of the information to criminally investigate or prosecute any alcohol or drug abuse patient.[facility]In the event this information is protected by the Federal Confidentiality of Alcohol and Drug Abuse Patient Records regulations: The Federal rules restrict any use of the information to criminally investigate or prosecute any alcohol or drug abuse patient.[facility]In the event this information is protected by the Federal Confidentiality of Alcohol and Drug Abuse Patient Records regulations: The Federal rules restrict any use of the information to criminally investigate or prosecute any alcohol or drug abuse patient.[facility]In the event this information is protected by the Federal Confidentiality of Alcohol and Drug Abuse Patient Records regulations: The Federal rules restrict any use of the information to criminally investigate or prosecute any alcohol or drug abuse patient.[facility]In the event this information is protected by the Federal Confidentiality of Alcohol and Drug Abuse Patient Records regulations: The Federal rules restrict any use of the information to criminally investigate or prosecute any alcohol or drug abuse patient.[facility]In the event this information is protected by the Federal Confidentiality of Alcohol and Drug Abuse Patient Records regulations: The Federal rules restrict any use of the information to criminally investigate or prosecute any alcohol or drug abuse patient.[facility]In the event this information is protected by the Federal Confidentiality of Alcohol and Drug Abuse Patient Records regulations: The Federal rules restrict any use of the information to criminally investigate or prosecute any alcohol or drug abuse patient.[facility]In the event this information is protected by the Federal Confidentiality of Alcohol and Drug Abuse Patient Records regulations: The Federal rules restrict any use of the information to criminally investigate or prosecute any alcohol or drug abuse patient.[facility]In the event this information is protected by the Federal Confidentiality of Alcohol and Drug Abuse Patient Records regulations: The Federal rules restrict any use of the information to criminally investigate or prosecute any alcohol or drug abuse patient.[facility]In the event this information is protected by the Federal Confidentiality of Alcohol and Drug Abuse Patient Records regulations: The Federal rules restrict any use of the information to criminally investigate or prosecute any alcohol or drug abuse patient.[facility]In the event this information is protected by the Federal Confidentiality of Alcohol and Drug Abuse Patient Records regulations: The Federal rules restrict any use of the information to criminally investigate or prosecute any alcohol or drug abuse patient.[facility]In the event this information is protected by the Federal Confidentiality of Alcohol and Drug Abuse Patient Records regulations: The Federal rules restrict any use of the information to criminally investigate or prosecute any alcohol or drug abuse patient.[facility]In the event this information is protected by the Federal Confidentiality of Alcohol and Drug Abuse Patient Records regulations: The Federal rules restrict any use of the information to criminally investigate or prosecute any alcohol or drug abuse patient.[facility]In the event this information is protected by the Federal Confidentiality of Alcohol and Drug Abuse Patient Records regulations: The Federal rules restrict any use of the information to criminally investigate or prosecute any alcohol or drug abuse patient.[facility]In the event this information is protected by the Federal Confidentiality of Alcohol and Drug Abuse Patient Records regulations: The Federal rules restrict any use of the information to criminally investigate or prosecute any alcohol or drug abuse patient.[facility]In the event this information is protected by the Federal Confidentiality of Alcohol and Drug Abuse Patient Records regulations: The Federal rules restrict any use of the information to criminally investigate or prosecute any alcohol or drug abuse patient.[facility]In the event this information is protected by the Federal Confidentiality of Alcohol and Drug Abuse Patient Records regulations: The Federal rules restrict any use of the information to criminally investigate or prosecute any alcohol or drug abuse patient.[facility]In the event this information is protected by the Federal Confidentiality of Alcohol and Drug Abuse Patient Records regulations: The Federal rules restrict any use of the information to criminally investigate or prosecute any alcohol or drug abuse patient.[facility]In the event this information is protected by the Federal Confidentiality of Alcohol and Drug Abuse Patient Records regulations: The Federal rules restrict any use of the information to criminally investigate or prosecute any alcohol or drug abuse patient.[facility]In the event this information is protected by the Federal Confidentiality of Alcohol and Drug Abuse Patient Records regulations: The Federal rules restrict any use of the information to criminally investigate or prosecute any alcohol or drug abuse patient.[facility]In the event this information is protected by the Federal Confidentiality of Alcohol and Drug Abuse Patient Records regulations: The Federal rules restrict any use of the information to criminally investigate or prosecute any alcohol or drug abuse patient.[facility]In the event this information is protected by the Federal Confidentiality of Alcohol and Drug Abuse Patient Records regulations: The Federal rules restrict any use of the information to criminally investigate or prosecute any alcohol or drug abuse patient.[facility]In the event this information is protected by the Federal Confidentiality of Alcohol and Drug Abuse Patient Records regulations: The Federal rules restrict any use of the information to criminally investigate or prosecute any alcohol or drug abuse patient.[facility]In the event this information is protected by the Federal Confidentiality of Alcohol and Drug Abuse Patient Records regulations: The Federal rules restrict any use of the information to criminally investigate or prosecute any alcohol or drug abuse patient.[facility]In the event this information is protected by the Federal Confidentiality of Alcohol and Drug Abuse Patient Records regulations: The Federal rules restrict any use of the information to criminally investigate or prosecute any alcohol or drug abuse patient.[facility]In the event this information is protected by the Federal Confidentiality of Alcohol and Drug Abuse Patient Records regulations: The Federal rules restrict any use of the information to criminally investigate or prosecute any alcohol or drug abuse patient.[facility]In the event this information is protected by the Federal Confidentiality of Alcohol and Drug Abuse Patient Records regulations: The Federal rules restrict any use of the information to criminally investigate or prosecute any alcohol or drug abuse patient.[facility]In the event this information is protected by the Federal Confidentiality of Alcohol and Drug Abuse Patient Records regulations: The Federal rules restrict any use of the information to criminally investigate or prosecute any alcohol or drug abuse patient.[facility]In the event this information is protected by the Federal Confidentiality of Alcohol and Drug Abuse Patient Records regulations: The Federal rules restrict any use of the information to criminally investigate or prosecute any alcohol or drug abuse patient.[facility]In the event this information is protected by the Federal Confidentiality of Alcohol and Drug Abuse Patient Records regulations: The Federal rules restrict any use of the information to criminally investigate or prosecute any alcohol or drug abuse patient.[facility]In the event this information is protected by the Federal Confidentiality of Alcohol and Drug Abuse Patient Records regulations: The Federal rules restrict any use of the information to criminally investigate or prosecute any alcohol or drug abuse patient.[facility]In the event this information is protected by the Federal Confidentiality of Alcohol and Drug Abuse Patient Records regulations: The Federal rules restrict any use of the information to criminally investigate or prosecute any alcohol or drug abuse patient.[facility]In the event this information is protected by the Federal Confidentiality of Alcohol and Drug Abuse Patient Records regulations: The Federal rules restrict any use of the information to criminally investigate or prosecute any alcohol or drug abuse patient.[facility]In the event this information is protected by the Federal Confidentiality of Alcohol and Drug Abuse Patient Records regulations: The Federal rules restrict any use of the information to criminally investigate or prosecute any alcohol or drug abuse patient.[facility]In the event this information is protected by [...] or prosecute any alcohol or drug abuse patient.[facility]In the event this information is protected by the Federal Confidentiality of Alcohol and Drug Abuse Patient Records regulations: The Federal rules restrict any use of the information to criminally investigate or prosecute any alcohol or drug abuse patient.[facility]In the event this information is protected by the Federal Confidentiality of Alcohol and Drug Abuse Patient Records regulations: The Federal rules restrict any use of the information to criminally investigate or prosecute any alcohol or drug abuse patient.[facility]In the event this information is protected by the Federal Confidentiality of Alcohol and Drug Abuse Patient Records regulations: The Federal rules restrict any use of the information to criminally investigate or prosecute any alcohol or drug abuse patient.[facility]In the event this information is protected by the Federal Confidentiality of Alcohol and Drug Abuse Patient Records regulations: The Federal rules restrict any use of the information to criminally investigate or prosecute any alcohol or drug abuse patient.[facility]In the event this information is protected by the Federal Confidentiality of Alcohol and Drug Abuse Patient Records regulations: The Federal rules restrict any use of the information to criminally investigate or prosecute any alcohol or drug abuse patient.[facility]In the event this information is protected by the Federal Confidentiality of Alcohol and Drug Abuse Patient Records regulations: The Federal rules restrict any use of the information to criminally investigate or prosecute any alcohol or drug abuse patient.[facility]In the event this information is protected by the Federal Confidentiality of Alcohol and Drug Abuse Patient Records regulations: The Federal rules restrict any use of the information to criminally investigate or prosecute any alcohol or drug abuse patient.[facility]In the event this information is protected by the Federal Confidentiality of Alcohol and Drug Abuse Patient Records regulations: The Federal rules restrict any use of the information to criminally investigate or prosecute any alcohol or drug abuse patient.[facility]In the event this information is protected by the Federal Confidentiality of Alcohol and Drug Abuse Patient Records regulations: The Federal rules restrict any use of the information to criminally investigate or prosecute any alcohol or drug abuse patient.[facility]In the event this information is protected by the Federal Confidentiality of Alcohol and Drug Abuse Patient Records regulations: The Federal rules restrict any use of the information to criminally investigate or prosecute any alcohol or drug abuse patient.[facility]In the event this information is protected by the Federal Confidentiality of Alcohol and Drug Abuse Patient Records regulations: The Federal rules restrict any use of the information to criminally investigate or prosecute any alcohol or drug abuse patient.[facility]In the event this information is protected by the Federal Confidentiality of Alcohol and Drug Abuse Patient Records regulations: The Federal rules restrict any use of the information to criminally investigate or prosecute any alcohol or drug abuse patient.[facility]In the event this information is protected by the Federal Confidentiality of Alcohol and Drug Abuse Patient Records regulations: The Federal rules restrict any use of the information to criminally investigate or prosecute any alcohol or drug abuse patient.[facility]In the event this information is protected by the Federal Confidentiality of Alcohol and Drug Abuse Patient Records regulations: The Federal rules restrict any use of the information to criminally investigate or prosecute any alcohol or drug abuse patient.[facility]In the event this information is protected by the Federal Confidentiality of Alcohol and Drug Abuse Patient Records regulations: The Federal rules restrict any use of the information to criminally investigate or prosecute any alcohol or drug abuse patient.[facility]In the event this information is protected by the Federal Confidentiality of Alcohol and Drug Abuse Patient Records regulations: The Federal rules restrict any use of the information to criminally investigate or prosecute any alcohol or drug abuse patient.[facility]In the event this information is protected by the Federal Confidentiality of Alcohol and Drug Abuse Patient Records regulations: The Federal rules restrict any use of the information to criminally investigate or prosecute any alcohol or drug abuse patient.[facility]In the event this information is protected by the Federal Confidentiality of Alcohol and Drug Abuse Patient Records regulations: The Federal rules restrict any use of the information to criminally investigate or prosecute any alcohol or drug abuse patient.[facility]In the event this information is protected by the Federal Confidentiality of Alcohol and Drug Abuse Patient Records regulations: The Federal rules restrict any use of the information to criminally investigate or prosecute any alcohol or drug abuse patient.[facility]In the event this information is protected by the Federal Confidentiality of Alcohol and Drug Abuse Patient Records regulations: The Federal rules restrict any use of the information to criminally investigate or prosecute any alcohol or drug abuse patient.[facility]In the event this information is protected by the Federal Confidentiality of Alcohol and Drug Abuse Patient Records regulations: The Federal rules restrict any use of the information to criminally investigate or prosecute any alcohol or drug abuse patient.[facility]In the event this information is protected by the Federal Confidentiality of Alcohol and Drug Abuse Patient Records regulations: The Federal rules restrict any use of the information to criminally investigate or prosecute any alcohol or drug abuse patient.[facility]In the event this information is protected by the Federal Confidentiality of Alcohol and Drug Abuse Patient Records regulations: The Federal rules restrict any use of the information to criminally investigate or prosecute any alcohol or drug abuse patient.[facility] SouthIn the event this information is protected by the Federal Confidentiality of Alcohol and Drug Abuse Patient Records regulations: The Federal rules restrict any use of the information to criminally investigate or prosecute any alcohol or drug abuse patient.[facility] SouthIn the event this information is protected by the Federal Confidentiality of Alcohol and Drug Abuse Patient Records regulations: The Federal rules restrict any use of the information to criminally investigate or prosecute any alcohol or drug abuse patient.[facility] SouthIn the event this information is protected by the Federal Confidentiality of Alcohol and Drug Abuse Patient Records regulations: The Federal rules restrict any use of the information to criminally investigate or prosecute any alcohol or drug abuse patient.[facility] SouthIn the event this information is protected by the Federal Confidentiality of Alcohol and Drug Abuse Patient Records regulations: The Federal rules restrict any use of the information to criminally investigate or prosecute any alcohol or drug abuse patient.[facility]In the event this information is protected by the Federal Confidentiality of Alcohol and Drug Abuse Patient Records regulations: The Federal rules restrict any use of the information to criminally investigate or prosecute any alcohol or drug abuse patient.[facility]In the event this information is protected by the Federal Confidentiality of Alcohol and Drug Abuse Patient Records regulations: The Federal rules restrict any use of the information to criminally investigate or prosecute any alcohol or drug abuse patient.[facility]In the event this information is protected by the Federal Confidentiality of Alcohol and Drug Abuse Patient Records regulations: The Federal rules restrict any use of the information to criminally investigate or prosecute any alcohol or drug abuse patient.[facility]In the event this information is protected by the Federal Confidentiality of Alcohol and Drug Abuse Patient Records regulations: The Federal rules restrict any use of the information to criminally investigate or prosecute any alcohol or drug abuse patient.[facility]In the event this information is protected by the Federal Confidentiality of Alcohol and Drug Abuse Patient Records regulations: The Federal rules restrict any use of the information to criminally investigate or prosecute any alcohol or drug abuse patient.[facility]In the event this information is protected by the Federal Confidentiality of Alcohol and Drug Abuse Patient Records regulations: The Federal rules restrict any use of the information to criminally investigate or prosecute any alcohol or drug abuse patient.[facility]In the event this information is protected by the Federal Confidentiality of Alcohol and Drug Abuse Patient Records regulations: The Federal rules restrict any use of the information to criminally investigate or prosecute any alcohol or drug abuse patient.[facility]In the event this information is protected by the Federal Confidentiality of Alcohol and Drug Abuse Patient Records regulations: The Federal rules restrict any use of the information to criminally investigate or prosecute any alcohol or drug abuse patient.[facility] SouthIn the event this information is protected by the Federal Confidentiality of Alcohol and Drug Abuse Patient Records regulations: The Federal rules restrict any use of the information to criminally investigate or prosecute any alcohol or drug abuse patient.[facility]In the event this information is protected by the Federal Confidentiality of Alcohol and Drug Abuse Patient Records regulations: The Federal rules restrict any use of the information to criminally investigate or prosecute any alcohol or drug abuse patient.[facility]In the event this information is protected by the Federal Confidentiality of Alcohol and Drug Abuse Patient Records regulations: The Federal rules restrict any use of the information to criminally investigate or prosecute any alcohol or drug abuse patient.[facility]In the event this information is protected by the Federal Confidentiality of Alcohol and Drug Abuse Patient Records regulations: The Federal rules restrict any use of the information to criminally investigate or prosecute any alcohol or drug abuse patient.[facility]In the event this information is protected by the Federal Confidentiality of Alcohol and Drug Abuse Patient Records regulations: The Federal rules restrict any use of the information to criminally investigate or prosecute any alcohol or drug abuse patient.[facility]In the event this information is protected by the Federal Confidentiality of Alcohol and Drug Abuse Patient Records regulations: The Federal rules restrict any use of the information to criminally investigate or prosecute any alcohol or drug abuse patient.[facility]In the event this information is protected by the Federal Confidentiality of Alcohol and Drug Abuse Patient Records regulations: The Federal rules restrict any use of the information to criminally investigate or prosecute any alcohol or drug abuse patient.[facility]In the event this information is protected by the Federal Confidentiality of Alcohol and Drug Abuse Patient Records regulations: The Federal rules restrict any use of the information to criminally investigate or prosecute any alcohol or drug abuse patient.[facility]In the event this information is protected by the Federal Confidentiality of Alcohol and Drug Abuse Patient Records regulations: The Federal rules restrict any use of the information to criminally investigate or prosecute any alcohol or drug abuse patient.[facility]In the event this information is protected by the Federal Confidentiality of Alcohol and Drug Abuse Patient Records regulations: The Federal rules restrict any use of the information to criminally investigate or prosecute any alcohol or drug abuse patient.[facility]In the event this information is protected by the Federal Confidentiality of Alcohol and Drug Abuse Patient Records regulations: The Federal rules restrict any use of the information to criminally investigate or prosecute any alcohol or drug abuse patient.[facility]In the event this information is protected by the Federal Confidentiality of Alcohol and Drug Abuse Patient Records regulations: The Federal rules restrict any use of the information to criminally investigate or prosecute any alcohol or drug abuse patient.[facility]In the event this information is protected by the Federal Confidentiality of Alcohol and Drug Abuse Patient Records regulations: The Federal rules restrict any use of the information to criminally investigate or prosecute any alcohol or drug abuse patient.[facility] SouthIn the event this information is protected by [...] or prosecute any alcohol or drug abuse patient.[facility]In the event this information is protected by the Federal Confidentiality of Alcohol and Drug Abuse Patient Records regulations: The Federal rules restrict any use of the information to criminally investigate or prosecute any alcohol or drug abuse patient.[facility]In the event this information is protected by the Federal Confidentiality of Alcohol and Drug Abuse Patient Records regulations: The Federal rules restrict any use of the information to criminally investigate or prosecute any alcohol or drug abuse patient.[facility]In the event this information is protected by the Federal Confidentiality of Alcohol and Drug Abuse Patient Records regulations: The Federal rules restrict any use of the information to criminally investigate or prosecute any alcohol or drug abuse patient.[facility]In the event this information is protected by the Federal Confidentiality of Alcohol and Drug Abuse Patient Records regulations: The Federal rules restrict any use of the information to criminally investigate or prosecute any alcohol or drug abuse patient.[facility]In the event this information is protected by the Federal Confidentiality of Alcohol and Drug Abuse Patient Records regulations: The Federal rules restrict any use of the information to criminally investigate or prosecute any alcohol or drug abuse patient.[facility]In the event this information is protected by the Federal Confidentiality of Alcohol and Drug Abuse Patient Records regulations: The Federal rules restrict any use of the information to criminally investigate or prosecute any alcohol or drug abuse patient.[facility]In the event this information is protected by the Federal Confidentiality of Alcohol and Drug Abuse Patient Records regulations: The Federal rules restrict any use of the information to criminally investigate or prosecute any alcohol or drug abuse patient.[facility]In the event this information is protected by the Federal Confidentiality of Alcohol and Drug Abuse Patient Records regulations: The Federal rules restrict any use of the information to criminally investigate or prosecute any alcohol or drug abuse patient.[facility]In the event this information is protected by the Federal Confidentiality of Alcohol and Drug Abuse Patient Records regulations: The Federal rules restrict any use of the information to criminally investigate or prosecute any alcohol or drug abuse patient.[facility]In the event this information is protected by the Federal Confidentiality of Alcohol and Drug Abuse Patient Records regulations: The Federal rules restrict any use of the information to criminally investigate or prosecute any alcohol or drug abuse patient.[facility]In the event this information is protected by the Federal Confidentiality of Alcohol and Drug Abuse Patient Records regulations: The Federal rules restrict any use of the information to criminally investigate or prosecute any alcohol or drug abuse patient.[facility]In the event this information is protected by the Federal Confidentiality of Alcohol and Drug Abuse Patient Records regulations: The Federal rules restrict any use of the information to criminally investigate or prosecute any alcohol or drug abuse patient.[facility]In the event this information is protected by the Federal Confidentiality of Alcohol and Drug Abuse Patient Records regulations: The Federal rules restrict any use of the information to criminally investigate or prosecute any alcohol or drug abuse patient.[facility]In the event this information is protected by the Federal Confidentiality of Alcohol and Drug Abuse Patient Records regulations: The Federal rules restrict any use of the information to criminally investigate or prosecute any alcohol or drug abuse patient.[facility]In the event this information is protected by the Federal Confidentiality of Alcohol and Drug Abuse Patient Records regulations: The Federal rules restrict any use of the information to criminally investigate or prosecute any alcohol or drug abuse patient.[facility]In the event this information is protected by the Federal Confidentiality of Alcohol and Drug Abuse Patient Records regulations: The Federal rules restrict any use of the information to criminally investigate or prosecute any alcohol or drug abuse patient.[facility]In the event this information is protected by the Federal Confidentiality of Alcohol and Drug Abuse Patient Records regulations: The Federal rules restrict any use of the information to criminally investigate or prosecute any alcohol or drug abuse patient.[facility]In the event this information is protected by the Federal Confidentiality of Alcohol and Drug Abuse Patient Records regulations: The Federal rules restrict any use of the information to criminally investigate or prosecute any alcohol or drug abuse patient.[facility]In the event this information is protected by the Federal Confidentiality of Alcohol and Drug Abuse Patient Records regulations: The Federal rules restrict any use of the information to criminally investigate or prosecute any alcohol or drug abuse patient.[facility]In the event this information is protected by the Federal Confidentiality of Alcohol and Drug Abuse Patient Records regulations: The Federal rules restrict any use of the information to criminally investigate or prosecute any alcohol or drug abuse patient.[facility]In the event this information is protected by the Federal Confidentiality of Alcohol and Drug Abuse Patient Records regulations: The Federal rules restrict any use of the information to criminally investigate or prosecute any alcohol or drug abuse patient.[facility]In the event this information is protected by the Federal Confidentiality of Alcohol and Drug Abuse Patient Records regulations: The Federal rules restrict any use of the information to criminally investigate or prosecute any alcohol or drug abuse patient.[facility]In the event this information is protected by the Federal Confidentiality of Alcohol and Drug Abuse Patient Records regulations: The Federal rules restrict any use of the information to criminally investigate or prosecute any alcohol or drug abuse patient.[facility]In the event this information is protected by the Federal Confidentiality of Alcohol and Drug Abuse Patient Records regulations: The Federal rules restrict any use of the information to criminally investigate or prosecute any alcohol or drug abuse patient.[facility]In the event this information is protected by the Federal Confidentiality of Alcohol and Drug Abuse Patient Records regulations: The Federal rules restrict any use of the information to criminally investigate or prosecute any alcohol or drug abuse patient.[facility]In the event this information is protected by the Federal Confidentiality of Alcohol and Drug Abuse Patient Records regulations: The Federal rules restrict any use of the information to criminally investigate or prosecute any alcohol or drug abuse patient.[facility]In the event this information is protected by the Federal Confidentiality of Alcohol and Drug Abuse Patient Records regulations: The Federal rules restrict any use of the information to criminally investigate or prosecute any alcohol or drug abuse patient.[facility]In the event this information is protected by the Federal Confidentiality of Alcohol and Drug Abuse Patient Records regulations: The Federal rules restrict any use of the information to criminally investigate or prosecute any alcohol or drug abuse patient.[facility]In the event this information is protected by the Federal Confidentiality of Alcohol and Drug Abuse Patient Records regulations: The Federal rules restrict any use of the information to criminally investigate or prosecute any alcohol or drug abuse patient.[facility]In the event this information is protected by the Federal Confidentiality of Alcohol and Drug Abuse Patient Records regulations: The Federal rules restrict any use of the information to criminally investigate or prosecute any alcohol or drug abuse patient.[facility]In the event this information is protected by the Federal Confidentiality of Alcohol and Drug Abuse Patient Records regulations: The Federal rules restrict any use of the information to criminally investigate or prosecute any alcohol or drug abuse patient.[facility]In the event this information is protected by the Federal Confidentiality of Alcohol and Drug Abuse Patient Records regulations: The Federal rules restrict any use of the information to criminally investigate or prosecute any alcohol or drug abuse patient.[facility]In the event this information is protected by the Federal Confidentiality of Alcohol and Drug Abuse Patient Records regulations: The Federal rules restrict any use of the information to criminally investigate or prosecute any alcohol or drug abuse patient.[facility]In the event this information is protected by the Federal Confidentiality of Alcohol and Drug Abuse Patient Records regulations: The Federal rules restrict any use of the information to criminally investigate or prosecute any alcohol or drug abuse patient.[facility]In the event this information is protected by the Federal Confidentiality of Alcohol and Drug Abuse Patient Records regulations: The Federal rules restrict any use of the information to criminally investigate or prosecute any alcohol or drug abuse patient.[facility]In the event this information is protected by the Federal Confidentiality of Alcohol and Drug Abuse Patient Records regulations: The Federal rules restrict any use of the information to criminally investigate or prosecute any alcohol or drug abuse patient.[facility]In the event this information is protected by the Federal Confidentiality of Alcohol and Drug Abuse Patient Records regulations: The Federal rules restrict any use of the information to criminally investigate or prosecute any alcohol or drug abuse patient.[facility]In the event this information is protected by the Federal Confidentiality of Alcohol and Drug Abuse Patient Records regulations: The Federal rules restrict any use of the information to criminally investigate or prosecute any alcohol or drug abuse patient.[facility]In the event this information is protected by the Federal Confidentiality of Alcohol and Drug Abuse Patient Records regulations: The Federal rules restrict any use of the information to criminally investigate or prosecute any alcohol or drug abuse patient.[facility]In the event this information is protected by the Federal Confidentiality of Alcohol and Drug Abuse Patient Records regulations: The Federal rules restrict any use of the information to criminally investigate or prosecute any alcohol or drug abuse patient.[facility]In the event this information is protected by the Federal Confidentiality of Alcohol and Drug Abuse Patient Records regulations: The Federal rules restrict any use of the information to criminally investigate or prosecute any alcohol or drug abuse patient.[facility]In the event this information is protected by the Federal Confidentiality of Alcohol and Drug Abuse Patient Records regulations: The Federal rules restrict any use of the information to criminally investigate or prosecute any alcohol or drug abuse patient.[facility]In the event this information is protected by the Federal Confidentiality of Alcohol and Drug Abuse Patient Records regulations: The Federal rules restrict any use of the information to criminally investigate or prosecute any alcohol or drug abuse patient.[facility]In the event this information is protected by the Federal Confidentiality of Alcohol and Drug Abuse Patient Records regulations: The Federal rules restrict any use of the information to criminally investigate or prosecute any alcohol or drug abuse patient.[facility]In the event this information is protected by the Federal Confidentiality of Alcohol and Drug Abuse Patient Records regulations: The Federal rules restrict any use of the information to criminally investigate or prosecute any alcohol or drug abuse patient.[facility]In the event this information is protected by the Federal Confidentiality of Alcohol and Drug Abuse Patient Records regulations: The Federal rules restrict any use of the information to criminally investigate or prosecute any alcohol or drug abuse patient.[facility]In the event this information is protected by the Federal Confidentiality of Alcohol and Drug Abuse Patient Records regulations: The Federal rules restrict any use of the information to criminally investigate or prosecute any alcohol or drug abuse patient.[facility]In the event this information is protected by the Federal Confidentiality of Alcohol and Drug Abuse Patient Records regulations: The Federal rules restrict any use of the information to criminally investigate or prosecute any alcohol or drug abuse patient.[facility]In the event this information is protected by [...] or prosecute any alcohol or drug abuse patient.[facility]In the event this information is protected by the Federal Confidentiality of Alcohol and Drug Abuse Patient Records regulations: The Federal rules restrict any use of the information to criminally investigate or prosecute any alcohol or drug abuse patient.[facility]In the event this information is protected by the Federal Confidentiality of Alcohol and Drug Abuse Patient Records regulations: The Federal rules restrict any use of the information to criminally investigate or prosecute any alcohol or drug abuse patient.[facility]In the event this information is protected by the Federal Confidentiality of Alcohol and Drug Abuse Patient Records regulations: The Federal rules restrict any use of the information to criminally investigate or prosecute any alcohol or drug abuse patient.[facility]In the event this information is protected by the Federal Confidentiality of Alcohol and Drug Abuse Patient Records regulations: The Federal rules restrict any use of the information to criminally investigate or prosecute any alcohol or drug abuse patient.[facility] SouthIn the event this information is protected by the Federal Confidentiality of Alcohol and Drug Abuse Patient Records regulations: The Federal rules restrict any use of the information to criminally investigate or prosecute any alcohol or drug abuse patient.[facility] the event this information is protected by the Federal Confidentiality of Alcohol and Drug Abuse Patient Records regulations: The Federal rules restrict any use of the information to criminally investigate or prosecute any alcohol or drug abuse patient.[facility] Reason for Visit (unrecogniz ed section and content) Reason Comments New Patient Specialty Diagnoses / Procedures Referred By Jed tompkins Referred To Contact Neurology Diagnoses Seizure disorder (HCC) Procedures CONSULT TO NEUROLOGY OFFICE/OUTPATIENT NEW HIGH MDM 60 MINUTES Jessie Harmon APRN.LAUNDRY OPERATOR WASH ROOM [address] [place] [address] Referral ID Status Reason Start Date Expiration Date V isits Requested Visits Authorized [id number] Closed PCP Requested Referral 07/13/2024 07/13/2025 1 [address] Specialty Diagnoses / Procedures Referred By Jed tompkins Referred To Contact CT IMAGING Diagnoses Iron deficiency anemia due to chronic blood loss Procedures CT ABD/PEL W IVCON CT ABD & PELVIS W/CONTRAST Jorge Cardoso MD [address] [place] [address] [place] [address] Referral ID Status Reason Start Date Expiration Date V isits Requested Visits Authorized [id number] Closed Auto-Generat ed Referral Patient Cleared - [...] Diagnoses Balanitis Procedures CONSULT TO UROLOGY OFFICE/OUTPATIENT [facility] MDM 60-74 MINUTES Jaci Arroyo MD [address] [place] [address] Referral ID Status Reason Start Date Expiration Date V isits Requested Visits Authorized [id number] Closed PCP Requested Referral 08/16/2022 08/16/2023 1 1 Reason Comments Appointment Reason Comments Consult Reason Comments 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 - Other Having BMP comp leted Reason Comments [facility] requesting records Reason Comments Results Orders Reason Comments Results Reason Comments Request for Mariella [facility] Reason Comments Appointment Appointment 10/15/22 Reason Comments Results Urine culture Orders Reason Comments Established Patient Follow-Up Reason Comments Home Health record Reason Comments [facility] OT Plan of Care Reason Comments [facility] Speech Heart rate out of pa rameter [...] Spirometry Specialty Diagnoses / Procedures Referred By [facility] Referred To Contact [facility] [place] Diagnoses Chronic obstructive pulmonary disease, unspecified COPD type (HCC) Procedures SPIROMETRY WITH DILATOR IF OBSTRUCTED BRNCDILAT RSPSE SPMTRY PRE&POST-BRNCDILAT ADMN Kimo Mcgrath MD [address] [place] [address] [facility] [address] [place] [address] Referral ID Status Reason Start Date Expiration Date V isits Requested Visits Authorized [id number] Closed Auto-Generate d Referral 01/10/2023 02/09/2024 1 1 Specialty Diagnoses / Procedures [facility] To Contact [facility] [place] [place] Diagnoses Centrilobular emphysema (HCC) Procedures LUNG DIFFUSION CAPACITY (DLCO) DIFFUSING CAPACITY Kimo Mcgrath MD [address] [place] [address] [facility] [address] [place] [address] Referral ID Status Reason Start Date Expiration Date V isits Requested Visits Authorized [id number] Closed Auto-Generate d Referral 03/12/2023 04/10/2024 1 1 Reason Comments New Patient COPD Specialty Diagnoses / Procedures Referred By Contac t Referred To Contact Pulmonary and Critical Care Medicine Diagnoses Shortness of breath COPD with exacerbation (HCC) Procedures CONSULT TO PULM/CRITICAL CARE OFFICE/OUTPATIENT [facility] 60-74 MINUTES Jaci Arroyo MD [address] [place] [address] Referral ID Status Reason Start Date Expiration Date V isits Requested Visits Authorized [id number] Closed PCP Requested Referral 11/17/2022 11/17/2023 1 1 Reason Comments Patient Update Reason Comments Appointment Appointment Reason Comments Consult Iron deficency/ anem ia Specialty Diagnoses / Procedures Referred By Contac t Referred To Contact General Surgery Diagnoses Iron deficiency anemia due to chronic blood loss Procedures CONSULT TO GENERAL SURGERY OFFICE/OUTPATIENT [facility] 60-74 MINUTES Jaci Arroyo MD [address] [place] [address] Referral ID Status Reason Start Date Expiration Date V isits Requested Visits Authorized [id number] Closed PCP Requested Referral 03/28/2023 03/27/2024 1 1 Reason Comments ER F/U [facility] 03/17/23- multiple falls, anemic at 6.5 & +occult stool; D/C to [facility] Reason Comments Patient Update Missed SN [...] MATERIAL Jorge Cardoso MD [address] [place] [address] [place] [address] Referral ID Status Reason Start Date Expiration Date V isits Requested Visits Authorized [id number] Closed Auto-Generat ed Referral Patient Cleared - [...] CONSULT TO SLEEP MEDICINE - ADULT OFFICE/OUTPATIENT [facility] 60 MINUTES Dania Aj Jr., MD [address] [place] [address] Referral ID Status Reason Start Date Expiration Date V isits Requested Visits Authorized [id number] Closed PCP Requested Referral 09/20/2023 09/19/2024 1 [...] occurr ed in 2016, was seen at [facility] for stroke, went in for Quad bypass at [facility] and he had another CVA and [...] NECK; W/O CONTRAST Dania Aj Jr., MD [address] [facility] [address] [place] [address] Mr Imaging [place] [address] Referral ID Status Reason Start Date Expiration Date V isits Requested Visits Authorized [id number] Closed Auto-Generate d Referral 03/25/2024 05/24/2024 1 1 Reason Comments Follow Up Reason Comments Future Appointment [place] Reason Comments F/U 3 Month Reason Onset Date Comments Refill Request 05/28/2024 Reason Comments Medication Clarification Reason Comments Unruptured Aneurysm Specialty Diagnoses / Procedures Referred By Contac t Referred To Contact Neurology / NEUROSURGERY Diagnoses Cerebral Aneurysm New Consult VV R/S Procedures VIDEO SPEC Dania Mendez Jr., MD [address] [place] [address] Gloria Sawyer MD [address] [place] [address] Referral ID Status Reason Start Date Expiration Date Visits Re quested Visits Authorized [id number] Closed 06/01/2024 08/30/2024 1 1 Reason Comments New Patient Spasticity Specialty Diagnoses / Procedures Referred By Contac t Referred To Contact [facility] Diagnoses History of stroke Spasticity Procedures CONSULT TO PHYSICAL MEDICINE AND REHABILITATION OFFICE/OUTPATIENT [facility] 60 MINUTES Michelle Webb PA-C [address] [place] [address] [facility] [address] [place] [address] Referral ID Status Reason Start Date Expiration Date V isits Requested Visits Authorized [id number] Closed PCP Requested Referral Auto-Generated Referral 05/20/2024 05/20/2025 1 1 Reason Comments Insurance Authorization Amiodarone Reason Comments Procedure Reason Comments Medication Request Patient Update Reason Comments Medication Question Reason Comments ER F/U [facility] ER- Saturday walk ing pneumonia, then ER Saturday- seizure (), also needs letter stating that he can not make decisions for himself Reason Comments apt needed Reason Comments Seizures Reason Comments Established Patient [facility] f/u pneumonia, s eizures Reason Comments Information Reason Onset Date Comments Refill Request 07/30/2024 Reason Comments Release Of Medical Records Reason Onset Date Comments Refill Request 08/14/2024 Reason Comments incontinence supplies Reason Onset Date Comments Refill Request 09/04/2024 Reason Onset Date Comments Refill Request 09/14/2024 Reason Comments Musculoskeletal Problem urine bright orange with odor foul smelling bowel movement Reason Comments 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 - Other Reason Onset Date Comments Refill Request 09/25/2024 Reason Comments Forms [place] Reason Comments Patient Update Hospital F/U Reason Comments COPD 6 month follow up Reason Comments [facility] Reason Comments Epilepsy Follow Up Reason Comments Medication Problem Patient's cut t he Lyrica dose Reason Comments Established Patient Reason Comments Cough Wheezing Reason Comments Follow Up Seizures Reason Comments Forms [facility] for medical re cord request Reason Comments [facility] Reason Comments Power Wheel Chair Reason Comments Follow Up 9 month follow up Reason Comments Medication Request Reason Comments Ear Problem Needs ear lavage bef ore hearing test on 03/04/2025 Reason Comments Letter Care Teams (unrecognized sec tion and content) [facility] Specialist Relationship Specialty Start Date End Date Jaci Arroyo MD [address] [place], [place] [address] PCP - General Family Practice 08/08/10 Robin Johansen MD [address] [place] [address] Cardiology 10/03/16 Espinoza Kimbrough MD [address] [place] [address] Physician Thoracic Surgery 11/29/18 David Avila MD [address] [place] [address] Vascular Surgery 01/06/19 [facility] Specialist Relationship Specialty Start Date End Date Jaci Arroyo MD [address] [place] [address] PCP - General Family Practice 08/08/10 Robin Johansen MD [address] [place] [address] Cardiology 10/03/16 Espinoza Kimbrough MD [address] [place] [address] [place] [address] Physician Thoracic Surgery 11/29/18 David Avlia MD [address] [place] [place] [address] Vascular Surgery 01/06/19 [facility] Specialist Relationship Specialty Start Date End Date Jaci Arroyo MD [address] [place] [address] PCP - General Family Practice 08/08/10 Robin Johansen MD [address] [place] [address] Cardiology 10/03/16 Espinoza Kimbrough MD [address] [place] [address] [place] [address] Physician Thoracic Surgery 11/29/18 David Avila MD [address] [place] [place] [address] Vascular Surgery 01/06/19 [facility] Department Specialist Relationship Specialty Start Date End Date Jaci Arroyo MD [address] [place] [address] PCP - General Family Practice 08/08/10 Robin Johansen MD [address] [place] [address] Cardiology 10/03/16 Espinoza Kimbrough MD [address] [place] [address] [place] [address] Physician Thoracic Surgery 11/29/18 David Avila MD [address] [place] [place] [address] Vascular Surgery 01/06/19 [facility] Department Specialist Relationship Specialty Start Date End Date Jaci Arroyo MD [address] [facility] [place] [address] PCP - General Family Practice 08/08/10 Robin Johansen MD [address] [place] [address] Cardiology 10/03/16 Espinoza Kimbrough MD [address] [place] [address] [place] [address] Physician Thoracic Surgery 11/29/18 David Avila MD [address] [place] [address] Vascular Surgery 01/06/19 [facility] Department Specialist Relationship Specialty Start Date End Date Jaci Arroyo MD [address] [place] [address] PCP - General Family Practice 08/08/10 Robin Johansen MD [address] [place] [address] Cardiology 10/03/16 Espinoza Kimbrough MD [address] [place] [address] [place] [address] Physician Thoracic Surgery 11/29/18 David Avila MD [address] [place] [address] Vascular Surgery 01/06/19 [facility] Department Specialist Relationship Specialty Start Date End Date Jaci Arroyo MD [address] [place] [address] PCP - General Family Practice 08/08/10 Robin Johansen MD [address] [place] [address] Cardiology 10/03/16 Espinoza Kimbrough MD [address] [place] [address] [place] [address] Physician Thoracic Surgery 11/29/18 David Avila MD [address] [place] [address] Vascular Surgery 01/06/19 [facility] Department Specialist Relationship Specialty Start Date End Date Jaci Arroyo MD [address] [place] [address] PCP - General Family Practice 08/08/10 Robin Johansen MD [address] [place] [address] Cardiology 10/03/16 Espinoza Kimbrough MD [address] [place] [address] [place] [address] Physician Thoracic Surgery 11/29/18 David Avila MD [address] [place] [address] Vascular Surgery 01/06/19 [facility] Department Specialist Relationship Specialty Start Date End Date Jaci Arroyo MD [address] [place] [address] PCP - General Family Practice 08/08/10 Robin Johansen MD [address] [place] [address] Cardiology 10/03/16 Espinoza Kimbrough MD [address] [place] [address] [place] [address] Physician Thoracic Surgery 11/29/18 David Avila MD [address] [place] [address] Vascular Surgery 01/06/19 [facility] Department Specialist Relationship Specialty Start Date End Date Jaci Arroyo MD [address] [place] [address] PCP - General Family Practice 08/08/10 Robin Johansen MD [address] [place] [address] Cardiology 10/03/16 Espinoza Kimbrough MD [address] [place] [address] [place] [address] Physician Thoracic Surgery 11/29/18 David Avila MD [address] [place] [address] Vascular Surgery 01/06/19 Flor[facility] Department Specialist Relationship Specialty Start Date End Date Jaci Arroyo MD [address] [place] [address] PCP - General Family Practice 08/08/10 Robin Johansen MD [address] [place] [address] Cardiology 10/03/16 Espinoza Kimbrough MD [address] [place] [address] [place] [address] Physician Thoracic Surgery 11/29/18 David Avila MD [address] [place] [address] Vascular Surgery 01/06/19 [facility] Department Specialist Relationship Specialty Start Date End Date Jaci Arroyo MD [address] [place] [address] PCP - General Family Medicine 08/08/10 Robin Johansen MD [address] [place] [address] Cardiology 10/03/16 Espinoza Kimbrough MD [address] [place] [address] [place] [address] Physician Thoracic Surgery 11/29/18 David Avila MD [address] [facility] [place] [address] Vascular Surgery 01/06/19 Flor[facility] Department Specialist Relationship Specialty Start Date End Date Jaci Arroyo MD [address] [place] [address] PCP - General Family Medicine 08/08/10 Robin Johansen MD [address] [place] [address] Cardiology 10/03/16 Espinoza Kimbrough MD [address] [place] [address] [place] [address] Physician Thoracic Surgery 11/29/18 David Avila MD [address] [place] [address] Vascular Surgery 01/06/19 Floral Department Specialist Relationship Specialty Start Date End Date Jaci Arroyo MD [address] [place] [address] PCP - General Family Medicine 08/08/10 Robin Johansen MD [address] [place] [address] Cardiology 10/03/16 Espinoza Kimbrough MD [address] [place] [address] [place] [address] Physician Thoracic Surgery 11/29/18 David Avila MD [address] [facility] [place] [address] Vascular Surgery 01/06/19 Floral Department Specialist Relationship Specialty Start Date End Date Jaci Arroyo MD [address] [place] [address] PCP - General Family Medicine 08/08/10 Robin Johansen MD [address] [place] [address] Cardiology 10/03/16 Espinoza Kimbrough MD [address] [place] [address] [place] [address] Physician Thoracic Surgery 11/29/18 David Avila MD [address] [place] [address] Vascular Surgery 01/06/19 Flor[facility] Department Specialist Relationship Specialty Start Date End Date Jaci Arroyo MD [address] [place] [address] PCP - General Family Medicine 08/08/10 Robin Johansen MD [address] [place] [address] Cardiology 10/03/16 Espinoza Kimbrough MD [address] [place] [address] [place] [address] Physician Thoracic Surgery 11/29/18 David Avila MD [address] [place] [address] Vascular Surgery 01/06/19 Floral Department Specialist Relationship Specialty Start Date End Date Jaci Arroyo MD [address] [place] [address] PCP - General Family Medicine 08/08/10 Robin Johansen MD [address] [place] [address] Cardiology 10/03/16 Espinoza Kimbrough MD [address] [place] [address] [place] [address] Physician Thoracic Surgery 11/29/18 David Avila MD [address] [place] [address] Vascular Surgery 01/06/19 Floral Department Specialist Relationship Specialty Start Date End Date Jaci Arroyo MD [address] [place] [address] PCP - General Family Medicine 08/08/10 Robin Johansen MD [address] [place] [address] Cardiology 10/03/16 Espinoza Kimbrough MD [address] [place] [address] [place] [address] Physician Thoracic Surgery 11/29/18 David Avila MD [address] [place] [address] Vascular Surgery 01/06/19 Floral Department Specialist Relationship Specialty Start Date End Date Jaci Arroyo MD [address] [place] [address] PCP - General Family Medicine 08/08/10 Robin Johansen MD [address] [place] [address] Cardiology 10/03/16 Espinoza Kimbrough MD [address] [place] [address] [place] [address] Physician Thoracic Surgery 11/29/18 David Avila MD [address] [place] [address] Vascular Surgery 01/06/19 Floral Department Specialist Relationship Specialty Start Date End Date Jaci Arroyo MD [address] [place] [address] PCP - General Family Medicine 08/08/10 Robin Johansen MD [address] [place] [address] Cardiology 10/03/16 Espinoza Kimbrough MD [address] [place] [address] [place] [address] Physician Thoracic Surgery 11/29/18 David Avila MD [address] [place] [address] Vascular Surgery 01/06/19 Floral Department Specialist Relationship Specialty Start Date End Date Jaci Arroyo MD [address] [facility] [place] [address] PCP - General Family Medicine 08/08/10 Robin Johansen MD [address] [place] [address] Cardiology 10/03/16 Espinoza Kimbrough MD [address] [place] [address] [place] [address] Physician Thoracic Surgery 11/29/18 David Avila MD [address] [place] [address] Vascular Surgery 01/06/19 Floral Department Specialist Relationship Specialty Start Date End Date Jaci Arroyo MD [address] [place] [address] PCP - General Family Medicine 08/08/10 Robin Johansen MD [address] [place] [address] Cardiology 10/03/16 Espinoza Kimbrough MD [address] [place] [address] [place] [address] Physician Thoracic Surgery 11/29/18 David Avila MD [address] [place] [address] Vascular Surgery 01/06/19 Floral Department Specialist Relationship Specialty Start Date End Date Jaci Arroyo MD [address] [place] [address] PCP - General Family Medicine 08/08/10 Robin Johansen MD [address] [place] [address] Cardiology 10/03/16 Espinoza Kimbrough MD [address] [place] [address] [place] [address] Physician Thoracic Surgery 11/29/18 David Avila MD [address] [place] [address] Vascular Surgery 01/06/19 Floral Department Specialist Relationship Specialty Start Date End Date Jaci Arroyo MD [address] [place] [address] PCP - General Family Medicine 08/08/10 Robin Johansen MD [address] [place] [address] Cardiology 10/03/16 Espinoza Kimbrough MD [address] [place] [address] [place] [address] Physician Thoracic Surgery 11/29/18 David Avila MD [address] [place] [address] Vascular Surgery 01/06/19 Floral Department Specialist Relationship Specialty Start Date End Date Jaci Arroyo MD [address] [place] [address] PCP - General Family Medicine 08/08/10 Robin Johansen MD [address] [place] [address] Cardiology 10/03/16 Espinoza Kimbrough MD [address] [place] [address] [place] [address] Physician Thoracic Surgery 11/29/18 David Avila MD [address] [place] [address] Vascular Surgery 01/06/19 Floral Department Specialist Relationship Specialty Start Date End Date Jaci Arroyo MD [address] [place] [address] PCP - General Family Medicine 08/08/10 Robin Johansen MD [address] [place] [address] Cardiology 10/03/16 Espinoza Kimbrough MD [address] [place] [address] [place] [address] Physician Thoracic Surgery 11/29/18 David Avila MD [address] [place] [place] [address] Vascular Surgery 01/06/19 Floral Department Specialist Relationship Specialty Start Date End Date Jaci Arroyo MD [address] [place] [address] PCP - General Family Medicine 08/08/10 Robin Johansen MD [address] [place] [address] Cardiology 10/03/16 Espinoza Kimbrough MD [address] [place] [address] [place] [address] Physician Thoracic Surgery 11/29/18 David Avila MD [address] [place] [place] [address] Vascular Surgery 01/06/19 Floral Department Specialist Relationship Specialty Start Date End Date Jaci Arroyo MD [address] [facility] [place] [address] PCP - General Family Medicine 08/08/10 Robin Johansen MD [address] [place] [address] Cardiology 10/03/16 Espinoza Kimbrough MD [address] [place] [address] [place] [address] Physician Thoracic Surgery 11/29/18 David Avila MD [address] [place] [address] Vascular Surgery 01/06/19 Floral Department Specialist Relationship Specialty Start Date End Date Jaci Arroyo MD [address] [facility] [place] [address] PCP - General Family Medicine 08/08/10 Robin Johansen MD [address] [place] [address] Cardiology 10/03/16 Espinoza Kimbrough MD [address] [place] [address] [place] [address] Physician Thoracic Surgery 11/29/18 David Avila MD [address] [place] [address] Vascular Surgery 01/06/19 Floral Department Specialist Relationship Specialty Start Date End Date Jaci Arroyo MD [address] [facility] [place] [address] PCP - General Family Medicine 08/08/10 Robin Johansen MD [address] [place] [address] Cardiology 10/03/16 Espinoza Kimbrough MD [address] [place] [address] [place] [address] Physician Thoracic Surgery 11/29/18 David Avila MD [address] [place] [address] Vascular Surgery 01/06/19 Floral Department Specialist Relationship Specialty Start Date End Date Jaci Arroyo MD [address] [place] [address] PCP - General Family Medicine 08/08/10 Robin Johansen MD [address] [place] [address] Cardiology 10/03/16 Espinoza Kimbrough MD [address] [place] [address] [place] [address] Physician Thoracic Surgery 11/29/18 David Avila MD [address] [place] [address] Vascular Surgery 01/06/19 Floral Department Specialist Relationship Specialty Start Date End Date Jaci Arroyo MD [address] [place] [address] PCP - General Family Medicine 08/08/10 Robin Johansen MD [address] [place] [address] Cardiology 10/03/16 Espinoza Kimbrough MD [address] [place] [address] [place] [address] Physician Thoracic Surgery 11/29/18 David Avila MD [address] [place] [address] Vascular Surgery 01/06/19 Team Status: Active Member [...] Provider, Referr ing Provider Active Soraya Pate PHYSICIAN OFFICE CL[facility] AS[facility], PHYSICIAN OFFICE CLIN AS[facility]-C Attending Provider Active Team Status: Inactive Member Role Status Dates Dr. Jaci Arroyo MD Primary Care Provider Active Kassandra Moise PHYSICIAN OFFICE CLIN [facility], PHYSICIAN OFFICE CLIN [facility]-C Attending Provider Active Team Status: Inactive Member [...] Carlton Lin DO Emergency Provider Active Dr. Atri Escalante MD Admit Provider, Other Provider Active [...] Dr. Felecia Burns MD Attending Provider Active [facility] Specialist Relationship Specialty Start Date End Date Jaci Arroyo MD [address] [place] [address] PCP - General Family Medicine 08/08/10 Robin Johansen MD [address] [place] [id number] Cardiology 10/03/16 Espinoza Kimbrough MD [address] [place] [address] [place] [address] Physician Thoracic Surgery 11/29/18 David Avila MD [address] [place] [address] Vascular Surgery 01/06/19 Floral Department Specialist Relationship Specialty Start Date End Date Jaci Aroryo MD [address] [place] [address] PCP - General Family Medicine 08/08/10 Robin Johansen MD [address] [place] [address] Cardiology 10/03/16 Espinoza Kimbrough MD [address] [place] [address] [place] [address] Physician Thoracic Surgery 11/29/18 David Avila MD [address] [place] [place] [address] Vascular Surgery 01/06/19 Floral Department Specialist Relationship Specialty Start Date End Date Jaci Arroyo MD [address] [place] [address] PCP - General Family Medicine 08/08/10 Robin Johansen MD [address] [place] [address] Cardiology 10/03/16 Espinoza Kimbrough MD [address] [place] [address] [place] [address] Physician Thoracic Surgery 11/29/18 David Avila MD [address] [place] [place] [address] Vascular Surgery 01/06/19 Floral Department Specialist Relationship Specialty Start Date End Date Jaci Arroyo MD [address] [facility] [place] [address] PCP - General Family Medicine 08/08/10 Robin Johansen MD [address] [address] [place] [address] Cardiology 10/03/16 Espinoza Kimbrough MD [address] [place] [address] [place] [address] Physician Thoracic Surgery 11/29/18 David Avila MD [address] [place] [address] Vascular Surgery 01/06/19 [facility] Specialist Relationship Specialty Start Date End Date Jaci Arroyo MD [address] [facility] [place] [address] PCP - General Family Medicine 08/08/10 Robin Johansen MD [address] [place] [address] Cardiology 10/03/16 Espinoza Kimbrough MD [address] [place] [address] [place] [address] Physician Thoracic Surgery 11/29/18 David Avila MD [address] [place] [address] Vascular Surgery 01/06/19 [facility] Department Specialist Relationship Specialty Start Date End Date Jaci Arroyo MD [address] [facility] [place] [address] PCP - General Family Medicine 08/08/10 Robin Johansen MD [address] [place] [address] Cardiology 10/03/16 Espinoza Kimbrough MD [address] [place] [address] [place] [address] Physician Thoracic Surgery 11/29/18 David Avila MD [address] [place] [address] Vascular Surgery 01/06/19 [facility] Department Specialist Relationship Specialty Start Date End Date Jaci Arroyo MD [address] [place] [address] PCP - General Family Medicine 08/08/10 Robin Johansen MD [address] [place] [address] Cardiology 10/03/16 Espinoza Kimbrough MD [address] [place] [address] [place] [address] Physician Thoracic Surgery 11/29/18 David Avila MD [address] [place] [address] Vascular Surgery 01/06/19 [facility] Department Specialist Relationship Specialty Start Date End Date Jaci Arroyo MD [address] [place] [address] PCP - General Family Medicine 08/08/10 Robin Johansen MD [address] [place] [address] Cardiology 10/03/16 Espinoza Kimbrough MD [address] [place] [address] [place] [address] Physician Thoracic Surgery 11/29/18 David Avila MD [address] [place] [address] Vascular Surgery 01/06/19 [facility] Department Specialist Relationship Specialty Start Date End Date Jaci Arroyo MD [address] [place] [address] PCP - General Family Medicine 08/08/10 Robin Johansen MD [address] [place] [address] Cardiology 10/03/16 Espinoza Kimbrough MD [address] [place] [address] [place] [address] Physician Thoracic Surgery 11/29/18 David Avila MD [address] [place] [address] Vascular Surgery 01/06/19 [facility] Department Specialist Relationship Specialty Start Date End Date Jaci Arroyo MD [address] [place] [address] PCP - General Family Medicine 08/08/10 Robin Johansen MD [address] [place] [address] Cardiology 10/03/16 Espinoza Kimbrough MD [address] [place] [address] [place] [address] Physician Thoracic Surgery 11/29/18 David Avila MD [address] [place] [address] Vascular Surgery 01/06/19 [facility] Department Specialist Relationship Specialty Start Date End Date Jaci Arroyo MD [address] [place] [address] PCP - General Family Medicine 08/08/10 Robin Johansen MD [address] [place] [address] Cardiology 10/03/16 Espinoza Kimbrough MD [address] [place] [address] [place] [address] Physician Thoracic Surgery 11/29/18 David Avila MD [address] [place] [address] Vascular Surgery 01/06/19 [facility] Department Specialist Relationship Specialty Start Date End Date Jaci Arroyo MD [address] [place] [address] PCP - General Family Medicine 08/08/10 Robin Johansen MD [address] [place] [address] Cardiology 10/03/16 Espinoza Kimbrough MD [address] [place] [address] [place] [address] Physician Thoracic Surgery 11/29/18 David Avila MD [address] [place] [address] Vascular Surgery 01/06/19 [facility] Department Specialist Relationship Specialty Start Date End Date Jaci Arroyo MD [address] [facility] [place] [address] PCP - General Family Medicine 08/08/10 Robin Johansen MD [address] [place] [address] Cardiology 10/03/16 Espinoza Kimbrough MD [address] [place] [address] [place] [address] Physician Thoracic Surgery 11/29/18 David Avila MD [address] [place] [address] Vascular Surgery 01/06/19 [facility] Department Specialist Relationship Specialty Start Date End Date Jaci Arroyo MD [address] [place] [address] PCP - General Family Medicine 08/08/10 Robin Johansen MD [address] [place] [address] Cardiology 10/03/16 Espinoza Kimbrough MD [address] [place] [address] [place] [address] Physician Thoracic Surgery 11/29/18 David Avila MD [address] [place] [address] Vascular Surgery 01/06/19 [facility] Department Specialist Relationship Specialty Start Date End Date Jaci Arroyo MD [address] [place] [address] PCP - General Family Medicine 08/08/10 Robin Johansen MD [address] [place] [address] Cardiology 10/03/16 Espinoza Kimbrough MD [address] [place] [address] [place] [address] Physician Thoracic Surgery 11/29/18 David Avila MD [address] [place] [address] Vascular Surgery 01/06/19 [facility] Department Specialist Relationship Specialty Start Date End Date Jaci Arroyo MD [address] [place] [address] PCP - General Family Medicine 08/08/10 Robin Johansen MD [address] [place] [address] Cardiology 10/03/16 Espinoza Kimbrough MD [address] [place] [address] [place] [address] Physician Thoracic Surgery 11/29/18 David Avila MD [address] [place] [address] Vascular Surgery 01/06/19 [facility] Department Specialist Relationship Specialty Start Date End Date Jaci Arroyo MD [address] [place] [address] PCP - General Family Medicine 08/08/10 Robin Johansen MD [address] [place] [address] Cardiology 10/03/16 Espinoza Kimbrough MD [address] [place] [address] [place] [address] Physician Thoracic Surgery 11/29/18 David Avila MD [address] [place] [address] Vascular Surgery 01/06/19 [facility] Department Specialist Relationship Specialty Start Date End Date Jaci Arroyo MD [address] [place] [address] PCP - General Family Medicine 08/08/10 Robin Johansen MD [address] [place] [address] Cardiology 10/03/16 Espinoza Kimbrough MD [address] [place] [address] [place] [address] Physician Thoracic Surgery 11/29/18 David Avila MD [address] [place] [address] Vascular Surgery 01/06/19 [facility] Department Specialist Relationship Specialty Start Date End Date Jaci Arroyo MD [address] [place] [address] PCP - General Family Medicine 08/08/10 Robin Johansen MD [address] [place] [address] Cardiology 10/03/16 Espinoza Kimbrough MD [address] [place] [address] [place] [address] Physician Thoracic Surgery 11/29/18 David Avila MD [address] [place] [address] Vascular Surgery 01/06/19 [facility] Department Specialist Relationship Specialty Start Date End Date Jaci Arroyo MD [address] [place] [address] PCP - General Family Medicine 08/08/10 Robin Johansen MD [address] [place] [address] Cardiology 10/03/16 Espinoza Kimbrough MD [address] [place] [address] [place] [address] Physician Thoracic Surgery 11/29/18 David Avila MD [address] [place] [address] Vascular Surgery 01/06/19 [facility] Department Specialist Relationship Specialty Start Date End Date Jaci Arroyo MD [address] [place] [address] PCP - General Family Medicine 08/08/10 Robin Johansen MD [address] [place] [address] Cardiology 10/03/16 Espinoza Kimbrough MD [address] [place] [address] [place] [address] Physician Thoracic Surgery 11/29/18 David Avila MD [address] [place] [address] Vascular Surgery 01/06/19 [facility] Department Specialist Relationship Specialty Start Date End Date Jaci Arroyo MD [address] [place] [address] PCP - General Family Medicine 08/08/10 Robin Johansen MD [address] [place] [address] Cardiology 10/03/16 Espinoza Kimbrough MD [address] [place] [address] [place] [address] Physician Thoracic Surgery 11/29/18 David Avila MD [address] [place] [address] Vascular Surgery 01/06/19 Team Status: Inactive Member Role Status Dates Dr. Jaci Arroyo MD Primary Care Pr ovider, Attending Provider, Referring Provider Active Team Status: Active Member Role Status Dates Dr. Jaci Arroyo MD Primary Care Provider Active Matt FENTON MD Attending Provider Active [facility] Specialist Relationship Specialty Start Date End Date Jaci Arroyo MD [address] [place] [address] PCP - General Family Medicine 08/08/10 Robin Johansen MD [address] [place] [address] Cardiology 10/03/16 Espinoza Kimbrough MD [address] [place] [address] [place] [address] Physician Thoracic Surgery 11/29/18 David Avila MD [address] [place] [address] Vascular Surgery 01/06/19 [facility] Department Specialist Relationship Specialty Start Date End Date Jaci Arroyo MD [address] [place] [address] PCP - General Family Medicine 08/08/10 Robin Johansen MD [address] [place] [address] Cardiology 10/03/16 Espinoza Kimbrough MD [address] [place] [address] [place] [address] Physician Thoracic Surgery 11/29/18 David Avila MD [address] [place] [address] Vascular Surgery 01/06/19 [facility] Department Specialist Relationship Specialty Start Date End Date Jaci Arroyo MD [address] [place] [address] PCP - General Family Medicine 08/08/10 Robin Johansen MD [address] [place] [address] Cardiology 10/03/16 Espinoza Kimbrough MD [address] [place] [address] [place] [address] Physician Thoracic Surgery 11/29/18 David Avila MD [address] [place] [address] Vascular Surgery 01/06/19 [facility] Department Specialist Relationship Specialty Start Date End Date Jaci Arroyo MD [address] [facility] [place] [address] PCP - General Family Medicine 08/08/10 Robin Johansen MD [address] [place] [address] Cardiology 10/03/16 Espinoza Kimbrough MD [address] [place] [address] [place] [address] Physician Thoracic Surgery 11/29/18 David Avila MD [address] [place] [address] Vascular Surgery 01/06/19 [facility] Department Specialist Relationship Specialty Start Date End Date Jaci Arroyo MD [address] [facility] [place] [address] PCP - General Family Medicine 08/08/10 Robin Johansen MD [address] [place] [address] Cardiology 10/03/16 Espinoza Kimbrough MD [address] [place] [address] [place] [address] Physician Thoracic Surgery 11/29/18 David Avila MD [address] [place] [address] Vascular Surgery 01/06/19 Team Status: Inactive Member Role Status Dates Dr. Jaci Arroyo MD Primary Care Provider Active Dr. Doug Mcgrath DO Attending Provider Active [facility] Department Specialist Relationship Specialty Start Date End Date Jaci Arroyo MD [address] [facility] [place] [address] PCP - General Family Medicine 08/08/10 Robin Johansen MD [address] [place] [address] Cardiology 10/03/16 Espinoza Kimbrough MD [address] [place] [address] [place] [address] Physician Thoracic Surgery 11/29/18 David Avila MD [address] [place] [address] Vascular Surgery 01/06/19 [facility] Department Specialist Relationship Specialty Start Date End Date Jaci Arroyo MD [address] [facility] [place] [address] PCP - General Family Medicine 08/08/10 Robin Johansen MD [address] [place] [address] Cardiology 10/03/16 Espinoza Kimbrough MD [address] [place] [address] [place] [address] Physician Thoracic Surgery 11/29/18 David Avila MD [address] [address] Vascular Surgery 01/06/19 Floral Department Specialist Relationship Specialty Start Date End Date Jaci Arroyo MD [address] [facility] [place] [address] PCP - General Family Medicine 08/08/10 Robin Johansen MD [address] [place] [address] Cardiology 10/03/16 Espinoza Kimbrough MD [address] [place] [address] [place] [address] Physician Thoracic Surgery 11/29/18 David Avila MD [address] [place] [address] Vascular Surgery 01/06/19 [facility] Department Specialist Relationship Specialty Start Date End Date Jaci Arroyo MD [address] [place] [address] PCP - General Family Medicine 08/08/10 Robin Johansen MD [address] [place] [address] Cardiology 10/03/16 Espinoza Kimbrough MD [address] [place] [address] [place] [address] Physician Thoracic Surgery 11/29/18 David Avila MD [address] [place] [address] Vascular Surgery 01/06/19 [facility] Department Specialist Relationship Specialty Start Date End Date Jaci Arroyo MD [address] [place] [address] PCP - General Family Medicine 08/08/10 Robin Johansen MD [address] [place] [address] Cardiology 10/03/16 Espinoza Kimbrough MD [address] [place] [address] [place] [address] Physician Thoracic Surgery 11/29/18 David Avila MD [address] [place] [address] Vascular Surgery 01/06/19 [facility] Department Specialist Relationship Specialty Start Date End Date Jaci Arroyo MD [address] [place] [address] PCP - General Family Medicine 08/08/10 Robin Johansen MD [address] [place] [address] Cardiology 10/03/16 Espinoza Kimbrough MD [address] [place] [address] [place] [address] Physician Thoracic Surgery 11/29/18 David Aivla MD [address] [place] [address] Vascular Surgery 01/06/19 [facility] Department Specialist Relationship Specialty Start Date End Date Jaci Arroyo MD [address] [place] [address] PCP - General Family Medicine 08/08/10 Robin Joahnsen MD [address] [place] [address] Cardiology 10/03/16 Espinoza Kimbrough MD [address] [place] [address] [place] [address] Physician Thoracic Surgery 11/29/18 David Avila MD [address] [place] [address] Vascular Surgery 01/06/19 Floral Department Specialist Relationship Specialty Start Date End Date Jaci Arroyo MD [address] [place] [address] PCP - General Family Medicine 08/08/10 Robin Johansen MD [address] [place] [address] Cardiology 10/03/16 Espinoza Kimbrough MD [address] [place] [address] [place] [address] Physician Thoracic Surgery 11/29/18 David Avila MD [address] [place] [address] Vascular Surgery 01/06/19 Flor[facility] Department Specialist Relationship Specialty Start Date End Date Jaci Arroyo MD [address] [place] [address] PCP - General Family Medicine 08/08/10 Robin Johansen MD [address] [place] [address] Cardiology 10/03/16 Espinoza Kimbrough MD [address] [place] [address] [place] [address] Physician Thoracic Surgery 11/29/18 David Avila MD [address] [place] [address] Vascular Surgery 01/06/19 Floral Department Specialist Relationship Specialty Start Date End Date Jaci Arroyo MD [address] [place] [address] PCP - General Family Medicine 08/08/10 Robin Johansen MD [address] [place] [address] Cardiology 10/03/16 Espinoza Kimbrough MD [address] [place] [address] [place] [address] Physician Thoracic Surgery 11/29/18 David Avila MD [address] [place] [address] Vascular Surgery 01/06/19 Floral Department Specialist Relationship Specialty Start Date End Date Jaci Arroyo MD [address] [place] [address] PCP - General Family Medicine 08/08/10 Robin Johansen MD [address] [place] [address] Cardiology 10/03/16 Espinoza Kimbrough MD [address] [place] [address] [place] [address] Physician Thoracic Surgery 11/29/18 David Avila MD [address] [place] [address] Vascular Surgery 01/06/19 Floral Department Specialist Relationship Specialty Start Date End Date Jaci Arroyo MD [address] [place] [address] PCP - General Family Medicine 08/08/10 Robin Johansen MD [address] [place] [address] Cardiology 10/03/16 Espinoza Kimbrough MD [address] [place] [address] [place] [address] Physician Thoracic Surgery 11/29/18 David Avila MD [address] [address] Vascular Surgery 01/06/19 Floral Department Specialist Relationship Specialty Start Date End Date Jaci Arroyo MD [address] [place] [address] PCP - General Family Medicine 08/08/10 Robin Johansen MD [address] [place] [address] Cardiology 10/03/16 Espinoza Kimbrough MD [address] [place] [address] [place] [address] Physician Thoracic Surgery 11/29/18 David Avila MD [address] [place] [address] Vascular Surgery 01/06/19 Floral Department Specialist Relationship Specialty Start Date End Date Jaci Arroyo MD [address] [facility] [place] [address] PCP - General Family Medicine 08/08/10 Robin Johansen MD [address] [place] [address] Cardiology 10/03/16 Espinoza Kimbrough MD [address] [place] [address] [place] [address] Physician Thoracic Surgery 11/29/18 David Avila MD [address] [place] [address] Vascular Surgery 01/06/19 Floral Department Specialist Relationship Specialty Start Date End Date Jaci Arroyo MD [address] [place] [address] PCP - General Family Medicine 08/08/10 Robin Johansen MD [address] [place] [address] Cardiology 10/03/16 Espinoza Kimbrough MD [address] [place] [address] [place] [address] Physician Thoracic Surgery 11/29/18 David Avila MD [address] [place] [address] Vascular Surgery 01/06/19 Floral Department Specialist Relationship Specialty Start Date End Date Jaci Arroyo MD [address] [place] [address] PCP - General Family Medicine 08/08/10 Robin Johansen MD [address] [place] [address] Cardiology 10/03/16 Espinoza Kimbrough MD [address] [place] [address] [place] [address] Physician Thoracic Surgery 11/29/18 David Avila MD [address] [place] [address] Vascular Surgery 01/06/19 Floral Department Specialist Relationship Specialty Start Date End Date Jaci Arroyo MD [address] [place] [address] PCP - General Family Medicine 08/08/10 Robin Johansen MD [address] [place] [address] Cardiology 10/03/16 Espinoza Kimbrough MD [address] [place] [address] [place] [address] Physician Thoracic Surgery 11/29/18 David Avila MD [address] [place] [address] Vascular Surgery 01/06/19 Team Status: Inactive Member [...] Dr. Dov Marin DO Other Provider Active [facility] Department Specialist Relationship Specialty Start Date End Date Jaci Arroyo MD [address] [place] [address] PCP - General Family Medicine 08/08/10 Robin Johansen MD [address] [place] [address] Cardiology 10/03/16 Espinoza Kimbrough MD [address] [place] [address] [place] [address] Physician Thoracic Surgery 11/29/18 David Avila MD [address] [place] [address] Vascular Surgery 01/06/19 Floral Department Specialist Relationship Specialty Start Date End Date Jaci Arroyo MD [address] [place] [address] PCP - General Family Medicine 08/08/10 Robin Johansen MD [address] [place] [address] Cardiology 10/03/16 Espinoza Kimbrough MD [address] [place] [address] [place] [address] Physician Thoracic Surgery 11/29/18 David Avila MD [address] [place] [address] Vascular Surgery 01/06/19 Floral Department Specialist Relationship Specialty Start Date End Date Jaci Arroyo MD [address] [place] [address] PCP - General Family Medicine 08/08/10 Robin Johansen MD [address] [place] [address] Cardiology 10/03/16 Espinoza Kimbrough MD [address] [place] [address] [place] [address] Physician Thoracic Surgery 11/29/18 David Avila MD [address] [place] [address] Vascular Surgery 01/06/19 Floral Department Specialist Relationship Specialty Start Date End Date Jaci Arroyo MD [address] [place] [address] PCP - General Family Medicine 08/08/10 Robin Johansen MD [address] [place] [address] Cardiology 10/03/16 Espinoza Kimbrough MD [address] [place] [address] [place] [address] Physician Thoracic Surgery 11/29/18 David Avila MD [address] [place] [address] Vascular Surgery 01/06/19 Floral Department Specialist Relationship Specialty Start Date End Date Jaci Arroyo MD [address] [place], [place] [address] PCP - General Family Medicine 08/08/10 Robin Johansen MD [address] [place] [address] Cardiology 10/03/16 Espinoza Kimbrough MD [address] [place] [address] [place] [address] Physician Thoracic Surgery 11/29/18 David Avila MD [address] [place] [address] Vascular Surgery 01/06/19 Team Status: Active Member [...] Active Matt FENTON MD Attending Provider Active [facility] Department Specialist Relationship Specialty Start Date End Date Jaci Arroyo MD [address] [place] [address] PCP - General Family Medicine 08/08/10 Robin Johansen MD [address] [place] [address] Cardiology 10/03/16 Espinoza Kimbrough MD [address] [place] [address] [place] [address] Physician Thoracic Surgery 11/29/18 David Avila MD [address] [place] [address] Vascular Surgery 01/06/19 Floral Department Specialist Relationship Specialty Start Date End Date Jaci Arroyo MD [address] [place] [address] PCP - General Family Medicine 08/08/10 Robin Johansen MD [address] [place] [address] Cardiology 10/03/16 Espinoza Kimbrough MD [address] [place] [address] [place] [address] Physician Thoracic Surgery 11/29/18 David Avila MD [address] [place] [address] Vascular Surgery 01/06/19 Floral Department Specialist Relationship Specialty Start Date End Date Jaci Arroyo MD [address] [place] [address] PCP - General Family Medicine 08/08/10 Robin Johansen MD [address] [place] [address] Cardiology 10/03/16 Espinoza Kimbrough MD [address] [place] [address] [place] [address] Physician Thoracic Surgery 11/29/18 David Avila MD [address] [place] [address] Vascular Surgery 01/06/19 Floral Department Specialist Relationship Specialty Start Date End Date Jaci Arroyo MD [address] [place] [address] PCP - General Family Medicine 08/08/10 Robin Johansen MD [address] [place] [address] Cardiology 10/03/16 Espinoza Kimbrough MD [address] [place] [address] [place] [address] Physician Thoracic Surgery 11/29/18 David Avila MD [address] [place] [address] Vascular Surgery 01/06/19 Floral Department Specialist Relationship Specialty Start Date End Date Jaci Arroyo MD [address] [place] [address] PCP - General Family Medicine 08/08/10 Robin Johansen MD [address] [place] [address] Cardiology 10/03/16 Espinoza Kimbrough MD [address] [place] [address] [place] [address] Physician Thoracic Surgery 11/29/18 David Avila MD [address] [place] [address] Vascular Surgery 01/06/19 Floral Department Specialist Relationship Specialty Start Date End Date Jaci Arroyo MD [address] [place] [address] PCP - General Family Medicine 08/08/10 Robin Johansen MD [address] [place] [address] Cardiology 10/03/16 Espinoza Kimbrough MD [address] [place] [address] [place] [address] Physician Thoracic Surgery 11/29/18 David Avila MD [address] [place] [address] Vascular Surgery 01/06/19 Floral Department Specialist Relationship Specialty Start Date End Date Jaci Aroryo MD [address] [place] [address] PCP - General Family Medicine 08/08/10 Robin Johansen MD [address] [place] [address] Cardiology 10/03/16 Espinoza Kimbrough MD [address] [place] [address] [place] [address] Physician Thoracic Surgery 11/29/18 David Avila MD [address] [place] [address] Vascular Surgery 01/06/19 Floral Department Specialist Relationship Specialty Start Date End Date Jaci Arroyo MD [address] [place] [address] PCP - General Family Medicine 08/08/10 Robin Johansen MD [address] [place] [address] Cardiology 10/03/16 Espinoza Kimbrough MD [address] [place] [address] [place] [address] Physician Thoracic Surgery 11/29/18 David Avila MD [address] [place] [address] Vascular Surgery 01/06/19 Floral Department Specialist Relationship Specialty Start Date End Date Jaci Arroyo MD [address] [place] [address] PCP - General Family Medicine 08/08/10 Robin Johansen MD [address] [place] [address] Cardiology 10/03/16 Espinoza Kimbrough MD [address] [place] [address] [place] [address] Physician Thoracic Surgery 11/29/18 David Avila MD [address] [place] [address] Vascular Surgery 01/06/19 Floral Department Specialist Relationship Specialty Start Date End Date Jaci Arroyo MD [address] [place] [place] [address] PCP - General Family Medicine 08/08/10 Robin Johansen MD [address] [place] [address] Cardiology 10/03/16 Espinoza Kimbrough MD [address] [place] [address] [place], [place] [address] Physician Thoracic Surgery 11/29/18 David Avila MD [address] [place] [address] Vascular Surgery 01/06/19 Floral Department Specialist Relationship Specialty Start Date End Date Jaci Arroyo MD [address] [facility] [place] [address] PCP - General Family Medicine 08/08/10 Robin Johansen MD [address] [place] [address] Cardiology 10/03/16 Espinoza Kimbrough MD [address] [place] [address] [place] [address] Physician Thoracic Surgery 11/29/18 David Avila MD [address] [place] [address] Vascular Surgery 01/06/19 Floral Department Specialist Relationship Specialty Start Date End Date Jaci Arroyo MD [address] [facility] [place] [address] PCP - General Family Medicine 08/08/10 Robin Johansen MD [address] [place] [address] Cardiology 10/03/16 Espinoza Kimbrough MD [address] [place] [address] [place] [address] Physician Thoracic Surgery 11/29/18 David Avila MD [address] [place] [address] Vascular Surgery 01/06/19 Floral Department Specialist Relationship Specialty Start Date End Date Jaci Arroyo MD [address] [place] [address] PCP - General Family Medicine 08/08/10 Robni Johansen MD [address] [place] [address] Cardiology 10/03/16 Espinoza Kimbrough MD [address] [place] [address] [place] [address] Physician Thoracic Surgery 11/29/18 David Avila MD [address] [address] Vascular Surgery 01/06/19 Floral Department Specialist Relationship Specialty Start Date End Date Jaci Arroyo MD [address] [place] [address] PCP - General Family Medicine 08/08/10 Robin Johansen MD [address] [place] [address] Cardiology 10/03/16 Espinoza Kimbrough MD [address] [place] [address] [place] [address] Physician Thoracic Surgery 11/29/18 Dvaid Avila MD [address] [place] [address] Vascular Surgery 01/06/19 Floral Department Specialist Relationship Specialty Start Date End Date Jaci Arroyo MD [address] [place] [address] PCP - General Family Medicine 08/08/10 Robin Johansen MD [address] [place] [address] Cardiology 10/03/16 Espinoza Kimbrough MD [address] [place] [address] [place] [address] Physician Thoracic Surgery 11/29/18 David Avila MD [address] [address] Vascular Surgery 01/06/19 Floral Department Specialist Relationship Specialty Start Date End Date Jaci Arroyo MD [address] [place] [address] PCP - General Family Medicine 08/08/10 Robin Johansen MD [address] [place] [address] Cardiology 10/03/16 Espinoza Kimbrough MD [address] [place] [address] [place] [address] Physician Thoracic Surgery 11/29/18 David Avila MD [address] [place] [address] Vascular Surgery 01/06/19 Floral Department Specialist Relationship Specialty Start Date End Date Jaci Arroyo MD [address] [place] [address] PCP - General Family Medicine 08/08/10 Robin Johansen MD [address] [place] [address] Cardiology 10/03/16 Espinoza Kimbrough MD [address] [place] [address] [place] [address] Physician Thoracic Surgery 11/29/18 David Avila MD [address] [place] [address] Vascular Surgery 01/06/19 Floral Department Specialist Relationship Specialty Start Date End Date Jaci Arroyo MD [address] [place] [address] PCP - General Family Medicine 08/08/10 Robin Johansen MD [address] [place] [address] Cardiology 10/03/16 Espinoza Kimbrough MD [address] [place] [address] [place] [address] Physician Thoracic Surgery 11/29/18 David Avila MD [address] [place] [address] Vascular Surgery 01/06/19 Floral Department Specialist Relationship Specialty Start Date End Date Jaci Arroyo MD [address] [place] [address] PCP - General Family Medicine 08/08/10 Robin Johansen MD [address] [place] [address] Cardiology 10/03/16 Espinoza Kimbrough MD [address] [place] [address] [place] [address] Physician Thoracic Surgery 11/29/18 David Avila MD [address] [place] [address] Vascular Surgery 01/06/19 Floral Department Specialist Relationship Specialty Start Date End Date Jaci Arroyo MD [address] [place] [address] PCP - General Family Medicine 08/08/10 Robin Johansen MD [address] [place] [address] Cardiology 10/03/16 Espinoza Kimbrough MD [address] [place] [address] [place] [address] Physician Thoracic Surgery 11/29/18 David Avila MD [address] [place] [address] Vascular Surgery 01/06/19 Floral Department Specialist Relationship Specialty Start Date End Date Jaci Arroyo MD [address] [facility] [facility] [place] [address] PCP - General Family Medicine 08/08/10 Robin Johansen MD [address] [place] [address] Cardiology 10/03/16 Espinoza Kimbrough MD [address] [place] [address] [place] [address] Physician Thoracic Surgery 11/29/18 David Avila MD [address] [address] Vascular Surgery 01/06/19 Floral Department Specialist Relationship Specialty Start Date End Date Jaci Arroyo MD [address] [facility] [facility] [place] [address] PCP - General Family Medicine 08/08/10 Robin Johansen MD [address] [place] [address] Cardiology 10/03/16 Espinoza Kimbrough MD [address] [place] [address] [place] [address] Physician Thoracic Surgery 11/29/18 David Avila MD [address] [place] [address] Vascular Surgery 01/06/19 Floral Department Specialist Relationship Specialty Start Date End Date Jaci Arroyo MD [address] [facility] [facility] [place] [address] PCP - General Family Medicine 08/08/10 Robin Johansen MD [address] [place] [address] Cardiology 10/03/16 Espinoza Kimbrough MD [address] [place] [address] [place] [address] Physician Thoracic Surgery 11/29/18 David Avila MD [address] [place] [address] Vascular Surgery 01/06/19 Floral Department Specialist Relationship Specialty Start Date End Date Jaci Arroyo MD [address] [place] [address] PCP - General Family Medicine 08/08/10 Robin Johansen MD [address] [place] [address] Cardiology 10/03/16 Espinoza Kimbrough MD [address] [place] [address] [place] [address] Physician Thoracic Surgery 11/29/18 David Avila MD [address] [place] [address] Vascular Surgery 01/06/19 Floral Department Specialist Relationship Specialty Start Date End Date Jaci Arroyo MD [address] [place] [address] PCP - General Family Medicine 08/08/10 Robin Johansen MD [address] [place] [address] Cardiology 10/03/16 Espinoza Kimbrough MD [address] [place] [address] [place] [address] Physician Thoracic Surgery 11/29/18 David Avila MD [address] [place] [address] Vascular Surgery 01/06/19 Floral Department Specialist Relationship Specialty Start Date End Date Jaci Arroyo MD [address] [facility] [place] [address] PCP - General Family Medicine 08/08/10 Robin Johansen MD [address] [place] [address] Cardiology 10/03/16 Espinoza Kimbrough MD [address] [place] [address] [place] [address] Physician Thoracic Surgery 11/29/18 David Avila MD [address] [place] [address] Vascular Surgery 01/06/19 Jessie Harmon APRN.CNP [address] [facility] [place] [address] Biofuels Processing Technician Family Medicine 07/12/24 Floral Department Specialist Relationship Specialty Start Date End Date Jaci Arroyo MD [address] [facility] [address] PCP - General Family Medicine 08/08/10 Robin Johansen MD [address] [place] [address] Cardiology 10/03/16 Espinoza Kimbrough MD [address] [place] [address] [place] [address] Physician Thoracic Surgery 11/29/18 David Avila MD [address] [place] [address] Vascular Surgery 01/06/19 Jessie Harmon APRN.LAUNDRY OPERATOR WASH ROOM [address] [place] [address] Biofuels Processing Technician Family [facility] 07/12/24 Mariano Beckman APRN.LAUNDRY OPERATOR WASH ROOM [address] [place] [address] [facility] 07/21/24 Floral Department Specialist Relationship Specialty Start Date End Date Jaci Arroyo MD [address] [place] [address] PCP - General Family Medicine 08/08/10 Robin Johansen MD [address] [place] [address] Cardiology 10/03/16 Espinoza Kmibrough MD [address] [place] [address] [place] [address] Physician Thoracic Surgery 11/29/18 David Avila MD [address] [place] [address] Vascular Surgery 01/06/19 Jessie Harmon APRN.LAUNDRY OPERATOR WASH ROOM [address] [place] [address] Biofuels Processing Technician Family Medicine 07/12/24 Mariano Beckman APRN.LAUNDRY OPERATOR WASH ROOM [address] [place] [address] Biofuels Processing Technician [facility] 07/21/24 Floral Department Specialist Relationship Specialty Start Date End Date Jaci Arroyo MD [address] [place] [address] PCP - General Family Medicine 08/08/10 Robin Johansen MD [address] [place] [address] Cardiology 10/03/16 Espinoza Kimbrough MD [address] [address] [place] [address] Physician Thoracic Surgery 11/29/18 David Avila MD [address] [place] [address] Vascular Surgery 01/06/19 Jessie Harmon APRN.LAUNDRY OPERATOR WASH ROOM [address] [place] [address] Biofuels Processing Technician Family Medicine 07/12/24 Mariano Beckman, [employer] GR[employer] RN.LAUNDRY OPERATOR WASH ROOM [address] [place] [address] Biofuels Processing Technician Family [facility] 07/21/24 Floral Department Specialist Relationship Specialty Start Date End Date Jaci Arroyo MD [address] [facility] [place] [address] PCP - General Family Medicine 08/08/10 Robin Johansen MD [address] [place] [address] Cardiology 10/03/16 Espinoza Kimbrough MD [address] [address] [place] [address] Physician Thoracic Surgery 11/29/18 David Avila MD [address] [place] [address] Vascular Surgery 01/06/19 Jessie Harmon APRN.LAUNDRY OPERATOR WASH ROOM [address] [place] [address] Biofuels Processing Technician Family Medicine 07/12/24 Mariano Beckman APRN.LAUNDRY OPERATOR WASH ROOM [address] [place] [address] Biofuels Processing Technician Family [facility] 07/21/24 Floral Department Specialist Relationship Specialty Start Date End Date Jaci Arroyo MD [address] [place] [address] PCP - General Family Medicine 08/08/10 Robin Johansen MD [address] [place] [address] Cardiology 10/03/16 Espinoza Kimbrough MD [address] [address] [place] [address] Physician Thoracic Surgery 11/29/18 David Avila MD [address] [place] [address] Vascular Surgery 01/06/19 Jessie Harmon APRN.LAUNDRY OPERATOR WASH ROOM [address] [place] [address] Biofuels Processing Technician [facility] 07/12/24 Mariano Beckman APRN.LAUNDRY OPERATOR WASH ROOM [address] [place] [address] Biofuels Processing Technician [facility] 07/21/24 Floral Department Specialist Relationship Specialty Start Date End Date Jaci Arroyo MD [address] [place] [address] PCP - General Family Medicine 08/08/10 Robin Johansen MD [address] [place] [address] Cardiology 10/03/16 Espinoza Kimbrough MD [address] [address] [place] [address] Physician Thoracic Surgery 11/29/18 David Avila MD [address] [place] [address] Vascular Surgery 01/06/19 Jessie Harmon APRN.LAUNDRY OPERATOR WASH ROOM [address] [place] [address] [facility]fuels [facility] 07/12/24 Mariano Beckman APRN.LAUNDRY OPERATOR WASH ROOM [address] [place] [address] [facility] 07/21/24 Floral Department Specialist Relationship Specialty Start Date End Date Jaci Arroyo MD [address] [place] [address] PCP - General Family Medicine 08/08/10 Robin Johansen MD [address] [place] [address] Cardiology 10/03/16 Espinoza Kimbrough MD [address] [place] [address] [place] [address] Physician Thoracic Surgery 11/29/18 David Avila MD [address] [place] [address] Vascular Surgery 01/06/19 Jessie Harmon APRN.LAUNDRY OPERATOR WASH ROOM [address] [place] [address] Biofuels Processing Technician Family Medicine 07/12/24 Mariano Beckman APRN.LAUNDRY OPERATOR WASH ROOM [address] [place] [address] Biofuels Processing Technician Family [facility] 07/21/24 Floral Department Specialist Relationship Specialty Start Date End Date Jaci Arroyo MD [address] [place] [address] PCP - General Family Medicine 08/08/10 Robin Johansen MD [address] [place] [address] Cardiology 10/03/16 Espinoza Kimbrough MD [address] [place] [address] [place] [address] Physician Thoracic Surgery 11/29/18 David Avila MD [address] [place] [address] Vascular Surgery 01/06/19 Jessie Harmon APRN.LAUNDRY OPERATOR WASH ROOM [address] [place] [address] Biofuels Processing Technician [facility] 07/12/24 Mariano Beckman APRN.LAUNDRY OPERATOR WASH ROOM [address] [place] [address] [facility]fuels [facility] 07/21/24 Floral Department Specialist Relationship Specialty Start Date End Date Jaci Arroyo MD [address] [place] [address] PCP - General Family Medicine 08/08/10 Robin Johansen MD [address] [facility] [address] [place] [address] Cardiology 10/03/16 Espinoza Kimbrough MD [address] [place] [address] Physician Thoracic Surgery 11/29/18 David Avila MD [address] [place] [address] Vascular Surgery 01/06/19 Jessie Harmon APRN.LAUNDRY OPERATOR WASH ROOM [address] [place] [address] Biofuels Processing Technician Family Medicine 07/12/24 Mariano Beckman APRN.LAUNDRY OPERATOR WASH ROOM [address] [place] [address] [facility]fuels Processing [facility] 07/21/24 Floral Department Specialist Relationship Specialty Start Date End Date Jaci Arroyo MD [address] [place] [address] PCP - General Family Medicine 08/08/10 Robin Johansen MD [address] [place] [address] (Fax) Cardiology 10/03/16 Espinoza Kimbrough MD [address] [address] [place] [address] Physician Thoracic Surgery 11/29/18 David Avila MD [address] [place] [address] Vascular Surgery 01/06/19 Jessie Harmon APRN.LAUNDRY OPERATOR WASH ROOM [address] [place] [address] Biofuels Processing Technician Family Medicine 07/12/24 Mariano Beckman APRN.LAUNDRY OPERATOR WASH ROOM [address] [place] [address] Biofuels Processing Technician Family [facility] 07/21/24 Floral Department Specialist Relationship Specialty Start Date End Date Jaci Arroyo MD [address] [place] [address] PCP - General Family Medicine 08/08/10 Robin Johansen MD [address] [place] [address] (Fax) Cardiology 10/03/16 Espinoza Kimbrough MD [address] [place] [address] [place] [address] Physician Thoracic Surgery 11/29/18 David Avila MD [address] [place] [address] Vascular Surgery 01/06/19 Jessie Harmon APRN.LAUNDRY OPERATOR WASH ROOM [address] [place] [address] Biofuels Processing [facility] 07/12/24 Mariano Beckman APRN.LAUNDRY OPERATOR WASH ROOM [address] [place] [address] [facility] 07/21/24 Floral Department Specialist Relationship Specialty Start Date End Date Jaci Arroyo MD [address] [place] [address] PCP - General Family Medicine 08/08/10 Robin Johansen MD [address] [place] [address] Cardiology 10/03/16 Espinoza Kimbrough MD [address] [place] [address] Physician Thoracic Surgery 11/29/18 David Avila MD [address] [place] [address] Vascular Surgery 01/06/19 Jessie Harmon APRN.LAUNDRY OPERATOR WASH ROOM [address] [place] [address] [facility] 07/12/24 Mariano Beckman APRN.LAUNDRY OPERATOR WASH ROOM [address] [place] [address] Biofuels Processing Technician Family Medicine 07/21/24 Floral Department Specialist Relationship Specialty Start Date End Date Jaci Arroyo MD [address] [place] [address] PCP - General Family Medicine 08/08/10 Robin Johansen MD [address] [place] [address] Cardiology 10/03/16 Espinoza Kimbrough MD [address] [place] [address] [place] [address] Physician Thoracic Surgery 11/29/18 David Avila MD [address] [place] [address] Vascular Surgery 01/06/19 Jessie Harmon APRN.LAUNDRY OPERATOR WASH ROOM [address] [place] [address] Biofuels Processing Technician Family Medicine 07/12/24 Mariano Beckman APRN.LAUNDRY OPERATOR WASH ROOM [address] [place] [address] Biofuels Processing Technician Family [facility] 07/21/24 Floral Department Specialist Relationship Specialty Start Date End Date Jaci Arroyo MD [address] [place] [address] PCP - General Family Medicine 08/08/10 Robin Johansen MD [address] [place] [address] Cardiology 10/03/16 Espinoza Kimbrough MD [address] [place] [address] [place] [address] Physician Thoracic Surgery 11/29/18 David Avila MD [address] [place] [address] Vascular Surgery 01/06/19 Jessie Harmon APRN.LAUNDRY OPERATOR WASH ROOM [address] [place] [address] Biofuels Processing Technician [facility] 07/12/24 Mariano Beckman APRN.LAUNDRY OPERATOR WASH ROOM [address] [place] [address] [facility] 07/21/24 Floral Department Specialist Relationship Specialty Start Date End Date Jaci Arroyo MD [address] [place] [address] PCP - General Family Medicine 08/08/10 Robin Johansen MD [address] [place] [address] Cardiology 10/03/16 Espinoza Kimbrough MD [address] [place] [address] Physician Thoracic Surgery 11/29/18 David Avila MD [address] [place] [address] Vascular Surgery 01/06/19 Jessie Harmon APRN.LAUNDRY OPERATOR WASH ROOM [address] [place] [address] Biofuels Processing Technician Family [facility] 07/12/24 Mariano Beckman APRN.LAUNDRY OPERATOR WASH ROOM [address] [place] [address] Biofuels Processing Technician Family Medicine 07/21/24 Floral Department Specialist Relationship Specialty Start Date End Date Jaci Arroyo MD [address] [place] [address] PCP - General Family Medicine 08/08/10 Robin Johansen MD [address] [place] [address] Cardiology 10/03/16 Espinoza Kimbrough MD [address] [place] [address] [place] [address] Physician Thoracic Surgery 11/29/18 David Avila MD [address] [place] [address] Vascular Surgery 01/06/19 Jessie Harmon APRN.LAUNDRY OPERATOR WASH ROOM [address] [place] [address] Biofuels Processing Technician Family Medicine 07/12/24 Mariano Beckman APRN.LAUNDRY OPERATOR WASH ROOM [address] [place] [address] Biofuels Processing Technician Family Medicine 07/21/24 Floral Department Specialist Relationship Specialty Start Date End Date Jaci Arroyo MD [address] [place] [address] PCP - General Family Medicine 08/08/10 Robin Johansen MD [address] [place] [address] Cardiology 10/03/16 Espinoza Kimbrough MD [address] [place] [address] [place] [address] Physician Thoracic Surgery 11/29/18 David Avila MD [address] [place] [address] Vascular Surgery 01/06/19 Jessie Harmon APRN.LAUNDRY OPERATOR WASH ROOM [address] [place] [address] Biofuels Processing Technician Family Medicine 07/12/24 Mariano Beckman APRN.LAUNDRY OPERATOR WASH ROOM [address] [place] [address] Biofuels Processing Technician [facility] 07/21/24 Floral Department Specialist Relationship Specialty Start Date End Date Jaci Arroyo MD [address] [place] [address] PCP - General Family Medicine 08/08/10 Robin Johansen MD [address] [place] [address] Cardiology 10/03/16 Espinoza Kimbrough MD [address] [place] [address] [place] [address] Physician Thoracic Surgery 11/29/18 David Avila MD [address] [address] Vascular Surgery 01/06/19 Jessie Harmon APRN.LAUNDRY OPERATOR WASH ROOM [address] [place] [address] Biofuels Processing Technician Family [facility] 07/12/24 Mariano Beckman APRN.LAUNDRY OPERATOR WASH ROOM [address] [place] [address] Biofuels Processing Technician [facility] 07/21/24 Floral Department Specialist Relationship Specialty Start Date End Date Jaci Arroyo MD [address] [place] [address] PCP - General Family Medicine 08/08/10 Robin Johansen MD [address] [place] [address] Cardiology 10/03/16 Espinoza Kimbrough MD [address] [place] [address] [place] [address] Physician Thoracic Surgery 11/29/18 David Avila MD [address] [place] [address] Vascular Surgery 01/06/19 Jessie Harmon APRN.LAUNDRY OPERATOR WASH ROOM [address] [place] [address] [facility] 07/12/24 Mariano Beckman APRN.LAUNDRY OPERATOR WASH ROOM [address] [place] [address] Biofuels Processing Technician [facility] 07/21/24 Floral Department Specialist Relationship Specialty Start Date End Date Jaci Arroyo MD [address] [place] [address] PCP - General Family Medicine 08/08/10 Robin Johansen MD [address] [place] [address] Cardiology 10/03/16 Espinoza Kimbrough MD [address] [place] [address] [place] [address] Physician Thoracic Surgery 11/29/18 David Avila MD [address] [place] [address] Vascular Surgery 01/06/19 Jessie Harmon APRN.LAUNDRY OPERATOR WASH ROOM [address] [place] [address] Biofuels Processing Technician Family [facility] 07/12/24 Mariano Beckman APRN.LAUNDRY OPERATOR WASH ROOM [address] [place] [address] Biofuels Processing Technician [facility] 07/21/24 Floral Department Specialist Relationship Specialty Start Date End Date Jaci Arroyo MD [address] [place] [address] PCP - General Family Medicine 08/08/10 Robin Johansen MD [address] [place] [address] Cardiology 10/03/16 Espinoza Kimbrough MD [address] [address] [place] [address] Physician Thoracic Surgery 11/29/18 David Avila MD [address] [place] [address] Vascular Surgery 01/06/19 Jessie Harmon APRN.LAUNDRY OPERATOR WASH ROOM [address] [place] [address] Biofuels Processing Technician Family Medicine 07/12/24 Mariano Beckman APRN.LAUNDRY OPERATOR WASH ROOM [address] [place] [address] Biofuels Processing Technician Family Medicine 07/21/24 Floral Department Specialist Relationship Specialty Start Date End Date Jaci Arroyo MD [address] [place] [address] PCP - General Family Medicine 08/08/10 Robin Johansen MD [address] [place] [address] Cardiology 10/03/16 Espinoza Kimbrough MD [address] [place] [address] Physician Thoracic Surgery 11/29/18 David Avila MD [address] [place] [address] Vascular Surgery 01/06/19 Jessie Harmon APRN.LAUNDRY OPERATOR WASH ROOM [address] [place] [address] Biofuels Processing Technician Family Medicine 07/12/24 Mariano Beckman APRN.LAUNDRY OPERATOR WASH ROOM [address] [place] [address] Biofuels Processing Technician Family [facility] 07/21/24 Floral Department Specialist Relationship Specialty Start Date End Date Jaci Arroyo MD [address] [place] [address] PCP - General Family Medicine 08/08/10 Robin Johansen MD [address] [place] [address] Cardiology 10/03/16 Espinoza Kimbrough MD [address] [place] [address] [place] [address] Physician Thoracic Surgery 11/29/18 David Avila MD [address] [place] [address] Vascular Surgery 01/06/19 Jessie Harmon APRN.LAUNDRY OPERATOR WASH ROOM [address] [place] [address] Biofuels Processing Technician Family [facility] 07/12/24 Mariano Beckman APRN.LAUNDRY OPERATOR WASH ROOM [address] [place] [address] Biofuels Processing Technician [facility] 07/21/24 Floral Department Specialist Relationship Specialty Start Date End Date Jaci Arroyo MD [address] [place] [address] PCP - General Family Medicine 08/08/10 Robin Johansen MD [address] [place] [address] Cardiology 10/03/16 Espinoza Kimbrough MD [address] [place] [address] [place] [address] Physician Thoracic Surgery 11/29/18 David Avila MD [address] [place] [address] Vascular Surgery 01/06/19 Jessie Harmon APRN.LAUNDRY OPERATOR WASH ROOM [address] [place] [address] Biofuels Processing Technician Family Medicine 07/12/24 Mariano Beckman APRN.LAUNDRY OPERATOR WASH ROOM [address] [place] [address] Biofuels Processing Technician Family Medicine 07/21/24 Floral Department Specialist Relationship Specialty Start Date End Date Jaci Arroyo MD [address] [facility] [address] PCP - General Family Medicine 08/08/10 Robin Johansen MD [address] [place] [address] Cardiology 10/03/16 Espinoza Kimbrough MD [address] [place] [address] Physician Thoracic Surgery 11/29/18 David Avila MD [address] [place] [address] Vascular Surgery 01/06/19 Jessie Harmon APRN.LAUNDRY OPERATOR WASH ROOM [address] [place] [address] Biofuels Processing Technician Family Medicine 07/12/24 Mariano Beckman APRN.LAUNDRY OPERATOR WASH ROOM [address] [facility] [address] Biofuels Processing Technician Family Medicine 07/21/24 Floral Department Specialist Relationship Specialty Start Date End Date Jaci Arroyo MD [address] [place] [address] PCP - General Family Medicine 08/08/10 Robin Johansen MD [address] [place] [address] (Fax) Cardiology 10/03/16 Espinoza Kimbrough MD [address] [place] [address] Physician Thoracic Surgery 11/29/18 David Avila MD [address] [place] [address] Vascular Surgery 01/06/19 Mariano Beckman APRN.[facility] [address] [place] [address] Biofuels Processing Technician Family Medicine 07/21/24 Phong Wilhelm MD [address] [place], [place] [id number] Neurology 12/31/24 Floral Department Specialist Relationship Specialty Start Date End Date Jaci Arroyo MD [address] [place] [address] PCP - General Family Medicine 08/08/10 Robin Johansen MD [address] [place] [address] (Fax) Cardiology 10/03/16 Espinoza Kimbrough MD [address] [place] [address] Physician Thoracic Surgery 11/29/18 David Avila MD [address] [place] [address] Vascular Surgery 01/06/19 Mariano Beckman APRN.LAUNDRY OPERATOR WASH ROOM [address] [place] [address] Biofuels Processing Technician Family [facility] 07/21/24 Phong Wilhelm MD [address] [place] [address] Neurology 12/31/24 Floral Department Specialist Relationship Specialty Start Date End Date Jaci Arroyo MD [address] [place] [address] PCP - General Family Medicine 08/08/10 Robin Johansen MD [address] [place] [address] Cardiology 10/03/16 Espinoza Kimbrough MD [address] [place] [address] Physician Thoracic Surgery 11/29/18 David Avila MD [address] [place] [address] Vascular Surgery 01/06/19 Mariano Beckman APRN.LAUNDRY OPERATOR WASH ROOM [address] [place] [address] Biofuels Processing Technician [facility] 07/21/24 Phong Wilhelm MD [address] [place] [address] Neurology 12/31/24 Floral Department Specialist Relationship Specialty Start Date End Date Jaci Arroyo MD [address] [place] [address] PCP - General Family Medicine 08/08/10 Robin Johansen MD [address] [place] [address] Cardiology 10/03/16 Espinoza Kimbrough MD [address] [place] [id number] Physician Thoracic Surgery 11/29/18 David Avila MD [address] [place] [address] Vascular Surgery 01/06/19 Jessie Harmon APRN.LAUNDRY OPERATOR WASH ROOM [address] [place] [address] Biofuels Processing Technician Family Medicine 07/12/24 12/16/24 Mariano Beckman APRN.LAUNDRY OPERATOR WASH ROOM [address] [place] [address] Biofuels Processing Technician Family Medicine 07/21/24 Phong Wilhelm MD [address] [place], [place] [id number] Neurology 12/31/24 Floral Department Specialist Relationship Specialty Start Date End Date Jaci Arroyo MD [address] [place] [address] PCP - General Family Medicine 08/08/10 Robin Johansen MD [address] [place] [address] Cardiology 10/03/16 Espinoza Kimbrough MD [address] [place] [address] Physician Thoracic Surgery 11/29/18 David Avila MD [address] [place] [address] Vascular Surgery 01/06/19 Mariano Beckman APRN.LAUNDRY OPERATOR WASH ROOM [address] [place] [address] Biofuels Processing Technician Family [facility] 07/21/24 Phong Wilhelm MD [address] [place], [place] [phone] Neurology 12/31/24 Floral Department Specialist Relationship Specialty Start Date End Date Jaci Arroyo MD [address] [place] [address] PCP - General Family Medicine 08/08/10 Robin Johansen MD [address] [place] [address] Cardiology 10/03/16 Espinoza Kimbrough MD 1 [facility] [address] [place] [address] Physician Thoracic Surgery 11/29/18 David Avila MD [address] [place] [address] Vascular Surgery 01/06/19 Mariano Beckman APRN.LAUNDRY OPERATOR WASH ROOM [address] [place] [address] Biofuels Processing Technician Family [facility] 07/21/24 Phong Wilhelm MD [address] [place] [address] Neurology 12/31/24 Floral Department Specialist Relationship Specialty Start Date End Date Jaci Arroyo MD [address] [place] [address] PCP - General Family Medicine 08/08/10 Robin Johansen MD [address] [place] [address] Cardiology 10/03/16 Espinoza Kimbrough MD [address] [place] [address] Physician Thoracic Surgery 11/29/18 David Avila MD [address] [facility] [place] [address] Vascular Surgery 01/06/19 Mariano Beckman APRN.LAUNDRY OPERATOR WASH ROOM [address] [place] [address] Biofuels Processing Technician Family Medicine 07/21/24 Phong Wilhelm MD [address] [place] [address] Neurology 12/31/24 Floral Department Specialist Relationship Specialty Start Date End Date Jaci Arroyo MD [address] [place] [address] PCP - General Family Medicine 08/08/10 Robin Johansen MD [address] [place] [address] Cardiology 10/03/16 Espinoza Kimbrough MD [address] [place] [address] Physician Thoracic Surgery 11/29/18 David Avila MD [address] [place] [address] Vascular Surgery 01/06/19 Mariano Beckman APRN.LAUNDRY OPERATOR WASH ROOM [address] [place] [address] Biofuels Processing Technician Family Medicine 07/21/24 Phong Wilhelm MD [address] [place] [address] Neurology 12/31/24 Floral Department Specialist Relationship Specialty Start Date End Date Jaci Arroyo MD [address] [place] [address] PCP - General Family Medicine 08/08/10 Robin Johansen MD [address] [place] [address] Cardiology 10/03/16 Espinoza Kimbrough MD [address] [place] [address] Physician Thoracic Surgery 11/29/18 David Avila MD [address] [place] [address] Vascular Surgery 01/06/19 Mariano Beckman APRN.LAUNDRY OPERATOR WASH ROOM [address] [place] [address] Biofuels Processing Technician Family Medicine 07/21/24 Phong Wilhelm MD [address] [place] [address] Neurology 12/31/24 Floral Department Specialist Relationship Specialty Start Date End Date Jaci Arroyo MD [address] [place] [address] PCP - General Family Medicine 08/08/10 Robin Johansen MD [address] [place] [address] Cardiology 10/03/16 Espinoza Kimbrough MD [address] [place] [address] Physician Thoracic Surgery 11/29/18 David Avila MD [address] [facility] [place] [address] Vascular Surgery 01/06/19 Mariano Beckman APRN.LAUNDRY OPERATOR WASH ROOM [address] [place] [address] Biofuels Processing Technician Family Medicine 07/21/24 Phong Wilhelm MD [address] [place] [address] Neurology 12/31/24 Floral Department Specialist Relationship Specialty Start Date End Date Jaci Arroyo MD [address] [place] [address] PCP - General Family Medicine 08/08/10 Robin Johansen MD [address] [place] [address] Cardiology 10/03/16 Espinoza Kimbrough MD [address] [facility] [address] [place] [address] Physician Thoracic Surgery 11/29/18 David Avila MD [address] [place] [address] Vascular Surgery 01/06/19 Mariano Beckman APRN.LAUNDRY OPERATOR WASH ROOM [address] [place] [address] Biofuels Processing Technician Family Medicine 07/21/24 Phong Wilhelm MD [address] [place], [place] [id number] Neurology 12/31/24 Goals (unrecognized section and content) [...] BE BASED ON THE PRIMARY CLINICAL RECORDS. [employer] provides no warranty or guarantee of the accuracy or completeness of information in this document.
--- NOTE | 2025-03-15 22:53 | RAD_ITS ---
PROCEDURE: CHEST PA AND LATERAL N/A REASON FOR EXAM: COUGH TECHNIQUE: CHEST PA AND LATERAL COMPARISON: 06/27/2024 FINDINGS: Lordotic positioning. Heart size within normal limits. Status post CABG. Stented left subclavian artery proximally. Prominent cardiac fat pads. Emphysema and smoking-related interstitial lung disease. No definite consolidation, effusion, or pneumothorax. RAD/Chest PA and Lateral IMPRESSION: No acute chest findings Reading Location: [facility]
--- NOTE | 2025-03-15 22:53 | RAD_ITS ---
PROCEDURE: CHEST PA AND LATERAL N/A REASON FOR EXAM: COUGH TECHNIQUE: CHEST PA AND LATERAL COMPARISON: 06/27/2024 FINDINGS: Lordotic positioning. Heart size within normal limits. Status post CABG. Stented left subclavian artery proximally. Prominent cardiac fat pads. Emphysema and smoking-related interstitial lung disease. No definite consolidation, effusion, or pneumothorax. RAD/Chest PA and Lateral IMPRESSION: No acute chest findings Reading Location: [facility]
[2025-03-15 23:00] VITALS: BP 145/80; PULSE 67; RESP 18; TEMP 36.7; O2SAT 94
--- NOTE | 2025-03-15 23:36 | EX.ED.DYSGE1 ---
HPI History of Present Illness Chief Complaint: Shortness of Breath Informant: patient and spouse/S.O. Narrative Narrative: Patient is a 69-year-old male with past medical history of COPD atrial fibrillation and previous stroke with right-sided weakness and expressive aphasia currently on Eliquis. states for the past 2 to 3 days she has had increased congestion and cough. She states she is unsure if this is allergies or potential infection. She states he has not had any fever but with his symptoms and his history of lung disorder she was concerned and therefore brought him in for evaluation Patient cannot offer any further history secondary to his expressive aphasia PFSH PFS Medical History History of ischemic left MCA stroke Polypharmacy History of seizures Nicotine dependence, cigarettes, in remission Pneumonia Closed right ankle fracture Wears dentures Wears glasses History of Clostridium difficile infection Anxiety Bruising Ambulates with cane Easy bruising Gastric reflux Former smoker CPAP (continuous positive airway pressure) dependence History of echocardiogram Cardiology follow-up encounter History of atrial fibrillation Bimalleolar fracture of right ankle Hypoxia History of stroke History of stroke Stroke/cerebrovascular accident residential current use of amiodarone Chronic atrial fibrillation Atherosclerosis of coronary artery without angina pectoris Confusion Mixed obstructive and restrictive ventilatory defect Aphasia as late effect of stroke Debility Dysphagia Anemia Lower resp. tract infection Respiratory failure Hyperlipidemia HTN (hypertension) Left acute arterial ischemic stroke, MCA (middle cerebral artery) (10/31/16) Sepsis Cerebral arterial aneurysm Carotid artery disease Smoker Home Medications ?Medication ?Instructions ?Recorded ?Last Taken ?Type famotidine 20 mg tablet 20 mg PO QHS PRN PRN Gastric Reflux 12/21/16 08/15/22 History baclofen 10 mg tablet 5 mg (1/2 x 10 mg) PO TID 02/05/17 08/07/23 09:00 Rx multivitamin,ps-zmet-yknvgnlg 1 tab PO DAILY vitamin 12/04/18 08/06/23 History (Complete Multivitamin tablet) potassium chloride 10 mEq 20 meq (2 x 10 mEq) PO TID 04/19/20 08/06/23 Rx tablet,extended release potassium #90 tabs ezetimibe 10 mg tablet 10 mg PO DAILY 04/22/21 08/06/23 History escitalopram oxalate 20 mg tablet 20 mg PO DAILY antidepressant 06/11/21 08/06/23 History menthol 0.44 %-zinc oxide 20.6 % 1 applic topical TID PRN Diaper 06/17/21 Unknown Rx topical ointment (Calmoseptine) Rash #0 grams amiodarone 100 mg tablet 100 mg PO DAILY HEART 07/11/21 08/07/23 09:00 History albuterol sulfate 90 mcg/actuation 2 inh inhalation Q4H PRN shortness 05/29/22 08/07/23 Rx aerosol inhaler (Ventolin HFA) of breath or wheezing #18 grams trazodone 50 mg tablet 100 mg PO QHS DEPRESSION 08/16/22 08/06/23 History miconazole nitrate 2 % topical 1 applic topical BID 14 days #15 08/17/22 Unknown Rx cream grams amlodipine 5 mg tablet 5 mg PO BID 11/11/22 08/07/23 09:00 History apixaban 5 mg tablet (Eliquis) 5 mg PO BID 11/11/22 08/05/23 History tiotropium 2.5 mcg-olodaterol 2.5 2 puff inhalation DAILY 05/29/23 08/06/23 History mcg/actuation mist for inhalation (Stiolto Respimat) albuterol sulfate 2.5 mg/3 mL 2.5 mg continuous nebulization Q6H 08/02/23 Unknown History (0.083 %) solution for nebulization PRN shortness of breath or wheezing atorvastatin 40 mg tablet 40 mg PO DAILY 08/02/23 08/06/23 History ferrous sulfate 325 mg (65 mg 325 mg PO BID 08/02/23 08/06/23 History iron) tablet (FeroSul) losartan 25 mg tablet 25 mg PO DAILY 08/02/23 08/07/23 09:00 History metoprolol tartrate 25 mg tablet 12.5 mg PO BID 08/02/23 08/07/23 09:00 History fluticasone propionate 50 2 spray intranasal DAILY #16 grams 12/02/23 Unknown Rx mcg/actuation nasal spray,suspension (Flonase Allergy Relief) buspirone 15 mg tablet 15 mg PO TID 04/08/24 Unknown History lorazepam 1 mg tablet (Ativan) 1 - 2 mg PO Q8H PRN agitation 04/08/24 Unknown History hydrocodone-acetaminophen 5-325mg 1 - 2 tab PO Q6H PRN PRN pain 06/27/24 Unknown History 5mg-325mg amoxicillin 875 mg-potassium 1 tab PO BID #10 tabs 06/28/24 Unknown Rx clavulanate 125 mg tablet clobazam 10 mg tablet (Onfi) 10 mg PO QHS #30 tabs 06/28/24 Unknown Rx levetiracetam 250 mg tablet 250 mg PO BID #21 tabs 06/28/24 Unknown Rx dexamethasone 6 mg tablet 6 mg PO DAILY 10 days #10 tabs 03/15/25 Unknown Rx Allergy/AdvReac Type Severity Reaction Status Date / Time azithromycin (From Zithromax Allergy Intermediate Hives Verified 03/15/25 21:37 Z-Dayo) lisinopril Allergy Intermediate Hives and Verified 03/15/25 21:37 diarrhea Sulfa (Sulfonamide Allergy Hives Verified 03/15/25 21:37 Antibiotics) Family History Mother Diabetes Heart disease Father AAA (abdominal aortic aneurysm) Heart disease Surgical History History of tracheostomy (11/07/16) 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 Social History household members: spouse Smoking Status: Former smoker how long ago did patient quit smokin years ago, 2ppd second hand exposure: Yes alcohol intake: never substance use type: does not use caffeine: No ROS ROS ED ROS Narrative Please note review of systems was taken from as patient has expressive aphasia Constitutional Constitutional ED: Denies chills or fever(s) ENT ENT ED: Reports rhinorrhea Cardiovascular Cardiovascular: Denies chest pain Respiratory/Chest Respiratory/Chest: Reports cough and dyspnea Gastrointestinal Gastrointestinal: Denies abdominal pain, diarrhea, nausea or vomiting Musculoskeletal Musculoskeletal: Denies myalgias Integumentary Denies rash Neurologic Neurologic: Denies headache(s) Hematologic/Lymphatic Hematologic/Lymphatic: Reports easy bleeding and easy bruising EXAM Physical Exam Const Vital Signs: 03/15/25 21:35 03/15/25 22:20 03/15/25 22:20 Temperature 98.1 F 98.1 F Temperature Source Oral Oral Pulse Rate 114 H 90 Respiratory Rate 18 18 Respiratory Effort Normal Non-Labored Respiratory Depth Normal Respiratory Pattern Normal Blood Pressure 138/67 H 120/86 H Blood Pressure Mean 90 97 Pulse Ox 95 92 Oxygen Delivery Method Room Air Room Air Room Air 03/15/25 23:00 03/15/25 23:38 Temperature 98.1 F 98 F Temperature Source Oral Pulse Rate 67 77 Respiratory Rate 18 18 Respiratory Effort Respiratory Depth Respiratory Pattern Blood Pressure 145/80 H 148/68 H Blood Pressure Mean 101 94 Pulse Ox 94 92 Oxygen Delivery Method Room Air Positive well nourished and well developed General Appearance ED: well developed; Negative for pallor HEENT HEENT Narrative: Bilateral TMs are retracted but show no secondary findings to suggest infection Nasal mucosa is hyperemic and boggy No tongue or lip swelling no oral lesions no airway edema or compromise; there is cobblestoning noted in the posterior pharynx consistent with sinus drainage without secondary findings to suggest infection Eyes PERRL and EOMs intact bilaterally Neck supple and no JVD Resp normal respiratory effort Resp Narrative: Breath sounds are diminished throughout with faint expiratory wheeze and faint rhonchi noted in the left lower lobe. However no nasal flaring retractions tachypnea or accessory muscle use. Cardio regular rate Rate: other Other Details: Irregularly irregular rhythm with regular rate consistent with history of atrial fibrillation Extremity Extremity Narrative: No asymmetric edema no pitting edema negative Homans' sign bilaterally Neuro Neuro Narrative: Patient is at his baseline mental status after his previous stroke. He has chronic right-sided weakness as well as expressive aphasia. No new or acute findings Psych mental status grossly normal Skin no rashes or lesions noted and no wounds General Skin Exam: Negative for jaundice or pallor MDM MDM MDM Narrative Medical decision making narrative: Patient arrived to the ER in no acute respiratory distress satting in the mid 90s on room air. He is in atrial fibrillation but has a past medical history of this and is currently on amiodarone and Eliquis. With reporting increased congestion and cough but overall patient showing no signs of respiratory distress I did not feel the need for laboratory studies. Patient has symptoms consistent with COPD exacerbation which could be secondary to pneumonia pneumothorax pleural effusion or viral infection such as COVID influenza or RSV. As he has not had a fever and he is not in respiratory distress or hypoxic I did not feel the need for intervention other than a chest x-ray and viral swab. Chest x-ray revealed no acute infiltrate. Viral swab was positive for COVID. Therefore this time we have a reason for his congestion and shortness of breath but as he is not showing signs of respiratory distress or hypoxia he is not requiring supplemental oxygen he does not have findings of sepsis there is no need for admission and he is otherwise safe for discharge with symptomatic care. I will start the patient on Decadron secondary to the COVID diagnosis and he already has breathing medications at home which she will continue. Based on his chronic medications I do not feel the need for Paxil bid as there is too high risk of interaction History & Record Review Discussion w/independent historian: Patient and Significant other Radiography Diagnostic Testing: Clinical Impression(s) from Imaging Studies Chest X-Ray 03/15/25 22:53 IMPRESSION: No acute chest findings Reading Location: [facility] Chest x-ray as interpreted by the emergency medicine physician reveals no acute infiltrate pneumothorax or pleural effusion Discharge Plan Triage Chief Complaint: Shortness of Breath ED Provider: Wilton Avery Dx/Rx/DC Orders Clinical Impression: COVID-19, Debility, History of stroke, Chronic atrial fibrillation, Current use of long term care administrator anticoagulation, COPD (chronic obstructive pulmonary disease) Instructions: Caring for Someone Who Has COVID-19 Prescriptions: New dexamethasone 6 mg tablet 6 mg PO DAILY 10 Days Qty: 10 0RF No Action Complete Multivitamin tablet 1 tab PO DAILY potassium chloride 10 mEq tablet extended release 20 meq PO TID Qty: 90 12RF albuterol sulfate [Ventolin HFA] 90 mcg/actuation HFA aerosol inhaler 2 inh inhalation Q4H PRN (Reason: shortness of breath or wheezing) Qty: 18 6RF Stiolto Respimat 2.5-2.5 mcg/actuation mist 2 puff inhalation DAILY famotidine 20 MG tablet 20 mg PO QHS PRN PRN (Reason: Gastric Reflux) Patient Comments: reduce acid baclofen 10 MG tablet 5 mg PO TID 0RF Patient Comments: muscle relaxant ezetimibe 10 mg tablet 10 mg PO DAILY Patient Comments: TAKE 1 TABLET BY MOUTH ONCE DAILY escitalopram oxalate 20 mg Tablet 20 mg PO DAILY menthol-zinc oxide [Calmoseptine] 0.44-20.6 % Ointment 1 applic topical TID PRN (Reason: Diaper Rash) Qty: 0 0RF Protocol: *Topical Application Instructions APPLICATION INSTRUCTIONS: scrotum/luci-rectal area prn amiodarone 100 mg tablet 100 mg PO DAILY Patient Comments: TAKE 1 TABLET BY MOUTH ONCE DAILY. DO NOT TAKE IF HEART RATE IS LESS THAN 40. trazodone 50 mg tablet 100 mg PO QHS Patient Comments: take 1 tablet by mouth at bedtime miconazole nitrate 2 % Cream 1 applic topical BID 14 Days Qty: 15 0RF Protocol: *Topical Application Instructions APPLICATION INSTRUCTIONS: Apply to erythema on glans of penis BID amlodipine 5 mg Tablet 5 mg PO BID Eliquis 5 mg tablet 5 mg PO BID Patient Comments: TAKE ONE (1) TABLET BY MOUTH TWICE DAILY albuterol sulfate 2.5 mg /3 mL (0.083 %) solution for nebulization 2.5 mg continuous nebulization Q6H PRN (Reason: shortness of breath or wheezing) Patient Comments: INHALE 1 VIAL VIA NEBULIZER EVERY 4 HOURS NEEDED FOR WHEEZING OR SHORTNESS OF BREATH *USE OVER 5-15 MINUTES* ferrous sulfate [FeroSul] 325 mg (65 mg iron) tablet 325 mg PO BID Patient Comments: take 1 tablet by mouth once daily losartan 25 mg tablet 25 mg PO DAILY Patient Comments: take 1 tablet by mouth once daily atorvastatin 40 mg tablet 40 mg PO DAILY Patient Comments: TAKE 1 TABLET BY MOUTH ONCE DAILY metoprolol tartrate 25 mg tablet 12.5 mg PO BID Rx Instructions: hold if heart rate is less than 60 hydrocodone-acetaminophen 5-325 mg tablet 1 - 2 tab PO Q6H PRN PRN (Reason: pain) levetiracetam 250 mg tablet 250 mg PO BID Qty: 21 0RF Rx Instructions: 2 times daily for 1 week, then daily for 1 week, then stop. clobazam [Onfi] 10 mg tablet 10 mg PO QHS Qty: 30 0RF Rx Instructions: 1/2 tablet (5mg) at night for 1 week, then 1 tablet at night. amoxicillin-pot clavulanate 875-125 mg tablet 1 tab PO BID Qty: 10 0RF lorazepam [Ativan] 1 mg tablet 1 - 2 mg PO Q8H PRN (Reason: agitation) buspirone 15 mg tablet 15 mg PO TID fluticasone propionate [Flonase Allergy Relief] 50 mcg/actuation spray,suspension 2 spray INTRANASAL DAILY Qty: 16 6RF Primary Care Provider: Conrad Arroyo Referrals: Conrad Arroyo MD [Primary Care Provider] - Activity Restrictions/Additional Instructions: Your x-ray revealed no signs of pneumonia but you did test positive for COVID which would correlate with your congestion cough and shortness of breath. Please continue your home breathing treatments every 4-6 hours and take the Decadron as directed to help reduce lung inflammation and shortness of breath symptoms. If you feel your symptoms are worsening or have any further concerns please return to the ER for repeat evaluation. We are not going to prescribe Paxlovid as you have too many interactions with your normal home medications. Print Language: [place] Citizen Disposition Disposition: Home, Self Care Discharge Date/Time: 03/15/25 23:55
[2025-03-15 23:38] VITALS: BP 148/68; PULSE 77; RESP 18; TEMP 36.6; O2SAT 92
== END 2025-03-15 23:55 | disposition home or self-care (01) ==
PROVIDERS: Emergency Provider Emergency Medicine; PCP Family Medicine; Visit Provider Emergency Medicine
DX: U07.1 COVID-19 (principal); J44.9 Chronic obstructive pulmonary disease, unspecified; I48.20 Chronic atrial fibrillation, unspecified; I25.10 Atherosclerotic heart disease of native coronary artery without angina pectoris; Z87.891 Personal history of nicotine dependence; Z86.73 Personal history of transient ischemic attack (TIA), and cerebral infarction without residual deficits
CPT/HCPCS: 71046; 87631; 99283; A4216

== ENCOUNTER 2025-04-27 12:30 | Outpatient (RCR) | payer MEDICARE, MEDICAID, SELFPAY ==
--- NOTE | 2025-04-14 13:47 | HP.OTEVAL_ITS ---
Patient's Visit Information Visit Information Visit Information: ROBERTA ZEE is a 69 year old M, referred to Occupational Therapy by Dr. Conrad Arroyo MD, with a diagnosis of CVA. Date of Evaluation: 04/14/25 Occupational Therapist: Palak Stiles Subjective Subjective: This 69 year old male arrives with dx of CVA, R hemiplegia as well as dysphasia. Pt presents with who serves as a historian for pt. Pt with expressive aphasia making it difficult to relay information. Pt with CVA approx 8+ years ago. Per pt has a hand bioness stimulator for multiple years however needs company to re collaborate it to meet pt needs. is most concerned about tightness in pts shoulder and RUE as well as overall deconditioning. Objective Objective/Observation: pt arrives in wheelchair with RUE unsupported dangling at side palm up in supination fingers closed to make fist with hand ROM Wrist: R 25/65 L 45/50 ROM Comments: pt does not have any active movement in R UE all measurements taken are of passive movement the therapist performs to assess limitations in ROM due to tone as per report. R ER 70 L WFL pt demonstrates WFL at elbow flexion as well as extension L and R side subluxation of R shoulder ed provided on not lifting arm past chest level for joint integrity however passively able to lift shoulder to chest level with no increase in tone felt. 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 by 5# or more in order to increase I in functional transfers as well as day to day tasks pt will improve bicep/ tricep strength by 5# or more for increased I in functional transfers as well as day to day tasks Goal:: pt will improve wrist extension by 10 degrees or more in order to decrease tone improve day to day tasks pt will be able to demonstrate the ability to keep R hand flat and supported for decreased tone and proper joint protection and positioning Goal:: pt/caregiver will verbalize/ demonstrate 100% accuracy in proper RUE positioning to prevent increased tone and promote proper joint alignment Goal:: pt / caregiver will verbalize/ demonstrate at least x2 techniques to avoid further R subluxation and promote proper joint integrity Rehabilitation General Assessment: This 69 year old male arrives with the dx of CVA, R hemiparesis impacting performance in day to day tasks. Pts CVA approx 8+ years ago resulting in minimal to no functional movement of RUE. there is tone that is felt in wrist as well as digits with concern for skin integrity due to resting in composite fist. Pt does have a R sided subluxation possibly a result of poor positioning of flaccid UE. Pt also will do own SROM however is impulsive with movement and coming above chest level impacting integrity of shoulder joint. Pt also presents with overall deconditioning decreased LUE strength as result of d ecreased activity. This pt does demonstrate flaccid RUE no functional movement at this time. This OT spent extensive ed on decreased likelihood of regaining motor control due to lapse in time since incident occurred. Pt and are able to verbalize understanding and agree with no goal to address motor control at this time. pt would benefit from OT once every other week for 6-8 weeks in order to decrease tone, improve L sided strength, provide ed and training to pt as well as (caregiver) on joint protection and positioning to maximize performance in day to day tasks. Rehabilitation Potential: Fair Anticipated Interventions Anticipated Interventions: A/AAROM/PROM, Strengthening, Joint Protection/Energy Conservation, Education re assistive Equipment, Education re Diagnosis, Caregiver Training and Home Program Visit Plan Frequency: Every Other Week Duration: 6-8 weeks General Plan: improve PROM / decrease tone RUE improve LUE strength provide ed and training in proper joint protection and positioning TEXT: Thank you for the opportunity to evaluate your patient. For Medicare and Medicare HMO plans, please review the plan of care and approve it. It will need to be FAXED BACK to us at [phone] for Medicare purposes. Please let me know if there are questions or concerns regarding this plan of care. Physician Signature: Date:
--- NOTE | 2025-04-14 13:52 | HP.SP.EVAL ---
Visit History Visit Info Date of Eval: 04/14/25 Today is Visit #: 1 Patient Account Representative: IDA History Attending Doctor: Reason for Referral: STROKE. RX HERE Medical Diagnosis: Dysphagia, Aphasia Date of Onset of Diagnosis: 10/30/16 Previous speech therapy: Yes Results: Afshin Bhat underwent coronary artery bypass graft at [facility] on 10/30/16 and on 10/31/16 he suffered a left MCA distribution infarct complicated by respiratory failure. Hospitalization was prolonged requiring tracheostomy and PEG tube placement followed by LTAC placement. Therapies were initiated and the patient improved to transfer to inpatient rehab at [facility] on 12/21/16. Since that time, he has had therapy at this facility in 2019, 2019, 2022, 2023. Initially, therapy was focused on moderate-severe cognitive-linguistic deficits characterized by severe expressive aphasia and mild-moderate receptive aphasia, apraxia, and, more recently in 2023, dysphagia along with aphasia. Most recently, Pt was seen for initial speech/language/cognitive evaluation at [facility] on 11/18/23 secondary to dx of CVA and dysphagia. Pt attended 14 sessions from initial evaluation targeting total communication, answering y/n questions, following 1-2 step directions, and diet tolerance. Pt being discharged from speech therapy caseload on 08/21/24 secondary to additional therapy sessions not being scheduled after last session. Pt had a MBSS study completed in August 2021, with a diagnosis of mild oropharyngeal dysphagia (R13.12) and recommended a diet of regular/thin with the use of compensatory strategies. Pharyngeal phase significant for aspiration of thin liquids when taking sequential sips via straw. When straw was not used and patient took small sips, no aspiration was found. Compensatory Strategies: Small Bites, Small Sips, No Straws, Sitting upright Supervision: 1:1 Close Supervision - consider distant supervision with consistent use of precautions and diet tolerance FEES completed on 03/09/24 with a diagnosis of mild oropharyngeal dysphagia and diet recommendation of Regular Textures /thin liquids. Compensatory Strategies: Small Bites, Small Sips, Slow Rate, Right head turn when swallowing, Alternate bites/solids and sips/liquids, Sitting upright, Remain sitting upright for 30 minutes after PO intake and Assist with verbal cues to use recommended strategies Supervision: 1:1 Close Supervision. 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 tract infection, Respiratory failure, Hyperlipidemia, HTN (hypertension), Sepsis, Cerebral arterial aneurysm, Carotid artery disease Medications related to this diagnosis: albuterol sulfate, Stiolto Respimat, famotidine, baclofen, amiodarone, trazodone, amlodipine, Eliquis, losartan, metoprolol, atorvastatin, clobazam, lorazepam, fluticasone propionate Smoking Status: Former smoker Diagnosis Diagnosis: Dysphagia, Severe Aphasia. Pain Is pain an issue with your current prescribed condition?: No Personal Preferred language: Algerian Patient Allergies Allergies Allergies: Allergies azithromycin (From Zithromax Z-Dayo) Allergy (Intermediate, Verified 03/15/25 21:37) Hives lisinopril Allergy (Intermediate, Verified 03/15/25 21:37) Hives and diarrhea Sulfa (Sulfonamide Antibiotics) Allergy (Verified 03/15/25 21:37) Hives Subjective Dysphagia Symptoms Reported Symptoms/Problems with: Choking, Difficulty Swallowing Solids, Difficulty Swallowing Liquids and Hx of Pneumonia Other: Significant difficulty with popcorn and chips with coughing Current Diet Solids Current Diet: Regular Current Diet Liquids Current Liquids: Thin Objective Dysphagia Administered by Administered by: Self Thin Liquids Administred via: Cup Oral Transit: WNL Bolus clearance: fully cleared Gagging: No Patient Report: Patient unable to report deficits. Comments: Patient has baseline cough. No observed cough today. Patient took 3 oz of water in 2 drinks. Past recommendations have been small sips/small bites and alternate bites/sips. Pureed Administered via: Cup Oral Preparation: WNL Oral Transit: WNL Bolus clearance: fully cleared Gagging: No Pharyngeal phase: suspect pharyngeal deficits Comments: Patient took three bites of pudding quickly without swallowing what was in oral cavity prior to next bite. HELP AID removed pudding cup to allow time for swallowing before next bite. Regular Cough: delayed Pharyngeal phase: suspect pharyngeal deficits Patient Report: reported at home he takes large bites. Comments: Patient took medium bite and masticated twice then swallowed. When cued he increased mastication time. Delayed cough observed after three bites of pureed and two bites of regular and two drinks. Unable to determine cause of delayed cough. Swallowing Impairment Contributing Factors to Swallowing Impairment: Difficulty Following Directions and Mastication Inefficiency Impact Impact on Safety & Functioning: Risk for Aspiration and Risk for Inadequate Nutrition/Hydration Recommendations Modified Barium Swallow/Cookie Swallow Recommended: Yes Diet Texture Recommendations Solids: Regular (Level 7) Liquids: Thin (Level 0) Results Swallowing Within Normal Limits: No Swallowing Diagnosis: Dysphagia Unspecified (R13.10) Subjective AAC AAC Subjective: Patient has an AAC that he received through the MA. was not sure of what device. He currently does not use his device as stated she does not know to program it. Objective Oral Motor Oral Status Dentition: Upper Dentures and Lower Dentures Objective Cog/Ling/Com Test Administered Hevbflvlm-Fzpnislwck-Exbbuuoslhvsu Assessment Administered: Yes Osslcruga-Bubxjiuayh-Lireqqniegsap Assessment: Cognitive ? Linguistic skills were evaluated using patient/family interview, skilled observation and informal evaluation through tasks completed by the patient. Answer Yes/No Questions Simple: Severe Conversational Tasks Conversational Tasks: Severe Comments: Patient answered yes to 90% of yes/no questions asked. At times he would shake his head no and verbalize yes which has been the same as previous therapy. Unable to answer any other questions. He was able to complete a phrase ( see you ___) later with 's prompting. He imitated excuse me after said it. His reported that he points to communicate but she often is not able to understand what he wants. Reference: Neuro-QoL instrument Radiation Oncology Patient Other Other Language: -: Patient has had a high level of previous therapy for significant aphasia and cognitive deficits. He continues to have deficits with communication of wants and needs, answering yes/no questions, and requesting help. His stated her goals for him would be answer yes/no questions, saying help or telling if he's hurt and where his pains/ medical issues are on his body, and pointing to request. As all of these things have been addressed over multiple years with very limited progress, she was educated on the focus of therapy can be his use of his AAC device to communicate. Previously he has not used his device. Further evaluation is needed to determine his functional use of his device. Plan Plan Plan: Speech therapy is warranted for dysphagia management and trial AAC use with education for family. A modified barium swallow study is recommended. His reported that she will bring his AAC device so therapist can evaluate it and add any words/phrases she wants to personalize on it. Recommendations Treatment Warranted: Yes Treatment Warranted: Dysphagia and Other: Comment: AAC evaluation. Progress Prognosis: Fair Frequency Frequency: 1x/Week Duration: 2 Months Visits in this POC: 8 Patient/Family Goal Patient/Family Goal: Patient is unable to state his goals. His 's goals were communication of patient saying help and hurt along with answering yes/no questions, pointing to request and recognize and communicate how he feels (or if he has pain or need on his body). Goals that are Established Determination:: Goals will be added/modified as deemed necessary and appropriate. Therapy will be discontinued when results of re-evaluation indicate therapy is no longer needed or lack of progress has been documented. Goal #1-5 Goal #1: Patient will participate in MBSS with goals added as appropriate and necessary. Goal #2: Patient will participate in an evaluation of communication skills using AAC. Education Patient has Indicated that the Following Identified Educational Needs: Cognitively Impaired Patient Instruction Patient Education: Diagnosis, Treatment Plan and Diet Level Person Taught: Patient and Significant Other Response to teaching: Has Prior Knowledge
--- NOTE | 2025-04-21 12:19 | HP.PTEVAL_ITS ---
Patient's Visit Information Visit Information Visit Information: ROBERTA ZEE is a 69 year old M referred to Physical Therapy by Dr. Conrad Arroyo MD with a diagnosis of CVA with R hemiplegia. Date of Evaluation: 04/14/25 Physical Therapist: Myron Gillette DPT Visit Plan Frequency: 2x /Week Duration: 6 Weeks Plan: BLE strengthening, gait with quad cane, functional strengthening Subjective Subjective: Pt. is here today for his initial evaluation with diagnosis of history of CVA with R sided weakness. Pt. has difficulty with walking and standing. Pt. also has expressive aphasia. Pt. spouse with patient today. Pt. has not fallen recently. He walks at home with use of quad cane at home. He has not been walking much. He does use an AFO on the R side. Pt. is hopeful to walk more and get back to use with his cane more often. No pain reported. Objective Objective: POSTURE: Pt. has a general flexed posture. with lean to L side in stance. PALPATION: Pt. has no pain with palpation of either LEs. NEURO: decreased reflexes on R side. ROM: Normal, tightness in B HS. MMT: RLE: knee: ext 3-/5, flexion 3-/5; hip: flexion 3/5, abd 3-/5. LLE: knee: ext 5/5, flexion 5/5; hip: flexion 5-/5, abd 5-/5. GAIT: Pt. ambulates with quad cane x30' wtih CGA. Pt. has marked R hip ER and uses adductors to advance. Pt. has step to pattern with heavy use of AD. TU.1 sec with quad cane 30sec sit to stand 7 with use of 1 UE Balance/Special Test Scores Lower Extremity Functional Score: 0 Goals Goal 1:: LTG: PT. to be able to complete 30sec sit to stand rep test with at least 12 reps indicating increased functional LE strength Goal Time Frame: 4-6 Weeks Goal 2:: LTG: pt. to be able to ambulate 75' with quad cane allowing for increased mobility in home. Goal Time Frame: 4-6 Weeks Goal 3:: LTG: Pt. to complete TUG with time less than 30seconds indicating increased functional mobility. Goal Time Frame: 4-6 Weeks Rehabilitation Potential Physical Therapy Diagnosis: Pt. has signs and symptoms consistent with CVA with R hemiplegia. Pt. has marked LE weakness and difficulty with functional mobility. Pt. would benefit from Pt. to address the above limitations progressing his functional mobility. Rehabilitation Potential: Fair Anticipated Interventions Patient/Client Instruction: Educate patient on: Condition, Plan of Care, Risk Factors and Benefits of Fitness Program For the Purpose of:: To foster healthy habits, To improve decision making, To facilitate caregiver knowledge, To improve self management, To prevent re-injury and To improve ability to perform tasks related to life management Therapeutic Exercise to Include: Strength training, Power training, Endurance training, Balance training, Coordination, Flexibilty training, Gait and locomotor training, Passive ROM and Active ROM For the Purpose of:: To increase ROM, To improve nutrient delivery to tissue, To increase oxygenation perfusion, To improve muscle performance and motor function, To improve ability to perform ADL's, To increase tolerance to activity/condition/position, To improve performance and independence with ADL's, To decrease level of supervision to perform tasks and To improve ability of physical actions for home/community/work/leisure Text: Thank you for the opportunity to evaluate your patient. For Medicare and Medicare HMO plans, please review the plan of care and approve it. It will need to be FAXED BACK to us at [phone] for Medicare purposes. For Medicare only, by signing this I certify the plan of care. Please let me know if there are questions or concerns regarding this plan of care. Physician Signatur e: Date:
--- NOTE | 2025-05-12 15:28 | HP.OT.NRP ---
Patient Information Patient Information: ROBERTA ZEE was seen in my office for initial evaluation on 04/14/25. The following Plan of Care was established for this patient: POC Established Initial Frequency: Every Other Week Initial Duration: 6-8 weeks Plan: L side strengthening positioning possible half lap tray for R shoulder support-- looking into Anticipated Interventions Anticipated Interventions: A/AAROM/PROM, Strengthening, Joint Protection/Energy Conservation, Education re assistive Equipment, Education re Diagnosis, Caregiver Training and Home Program Last Seen Last Seen: This patient was last seen in our office 04/27/25. Pertinent comments regarding their Occupational therapy will appear below: This 69 year old male seen for dx of CVA. pt seen for x2 treatments and then cancels remaining sessions. OT to discharge from caseload at this time due to no appointments scheduled. At this point I will be discontinuing this patient from occupational therapy. I would be happy to see this patient again in the future if found appropriate by the physician. Thank you! Palak Stiles
--- NOTE | 2025-05-24 10:13 | HP.SP.DC_ITS ---
ST Discharge Summary Discharged: Discharge: Afshin Bhat is discharged from [facility] speech therapy as of May. His cancelled all appointments and stated he does not want to do therapy any more. He was evaluated on 04/14/25 with a diagnosis of CVA. His goals were to have an MBSS for dysphagia and AAC evaluation. As no visits were completed and family cancelled sessions and MBSS, he is discharged. Thank you for allowing me to participate in the care of this patient.
== END 2025-04-27 19:00 | disposition home or self-care (01) ==
LOC: SP 12:30
PROVIDERS: PCP Family Medicine; Visit Provider Family Medicine
DX: Z86.73 Personal history of transient ischemic attack (TIA), and cerebral infarction without residual deficits (principal); G81.91 Hemiplegia, unspecified affecting right dominant side; R47.02 Dysphasia
CPT/HCPCS: 92507; 92610; 97110; 97161; 97166; 97530

== ENCOUNTER 2025-06-08 11:59 | Emergency (ER) | payer MEDICARE, MEDICAID, SELFPAY ==
[2025-06-08] VITALS (8 sets, daily range): BP systolic 127–146; BP diastolic 64–94; PULSE 67–87; RESP 15–20; TEMP 36.5–37.2; O2SAT 90–98; BMI 28.7
--- NOTE | 2025-06-08 13:19 | EX.ED.DYSGE1 ---
HPI History of Present Illness Chief Complaint: Cough Informant: patient and spouse/S.O. Limited: other (Expressive aphasia from prior stroke) Narrative Narrative: Patient is a 69-year-old male with history of COPD, wears 6 L of oxygen at nighttime but none during the day, prior MCA stroke with residual right-sided deficits and expressive aphasia, dysphagia, chronic atrial fibrillation (on Eliquis), DARON on CPAP and tobacco use presenting with a worsening cough and shortness of breath. History is provided by who is his primary caregiver as he does have expressive aphasia at baseline. She notes that starting Saturday, 4 days ago he seemed more short of breath and had worsening cough. Symptoms are much worse at night. She feels that it is wet but he cannot get anything up. Did have a fever on Saturday and Saturday night (101) which was treated with Tylenol. Notes that his O2 levels have been up and down in his low 60s at home. Came in for further evaluation. Denies any recent swelling of his legs. Denies any abdominal pain, vomiting or change in bowel habits. No urinary symptoms reported. No sick contacts reported. says he is prone to pneumonia. No other complaints or concerns reported at this time. 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 tract infection Respiratory failure Hyperlipidemia HTN (hypertension) Left acute arterial ischemic stroke, MCA (middle cerebral artery) (10/31/16) Sepsis Cerebral arterial aneurysm Carotid artery disease Smoker Home Medications ?Medication ?Instructions ?Recorded ?Last Taken ?Type famotidine 20 mg tablet 20 mg PO DAILY Gastric Reflux 12/21/16 06/08/25 History multivitamin,co-fjmr-hzfbrybl 1 tab PO DAILY vitamin 12/04/18 06/08/25 History (Complete Multivitamin tablet) potassium chloride 10 mEq 20 meq (2 x 10 mEq) PO TID 04/19/20 06/08/25 Rx tablet,extended release potassium #90 tabs ezetimibe 10 mg tablet 10 mg PO DAILY CHOLESTEROL 04/22/21 06/08/25 History escitalopram oxalate 20 mg tablet 20 mg PO DAILY antidepressant 06/11/21 06/08/25 History menthol 0.44 %-zinc oxide 20.6 % 1 applic topical TID PRN Diaper 06/17/21 Unknown Rx topical ointment (Calmoseptine) Rash #0 grams amiodarone 100 mg tablet 100 mg PO DAILY HEART 07/11/21 08/07/23 09:00 History albuterol sulfate 90 mcg/actuation 2 inh inhalation Q4H PRN shortness 05/29/22 06/07/25 Rx aerosol inhaler (Ventolin HFA) of breath or wheezing #18 grams miconazole nitrate 2 % topical 1 applic topical BID 14 days #15 08/17/22 Unknown Rx cream grams apixaban 5 mg tablet (Eliquis) 5 mg PO BID 11/11/22 06/08/25 History albuterol sulfate 2.5 mg/3 mL 2.5 mg continuous nebulization Q6H 08/02/23 06/08/25 History (0.083 %) solution for nebulization PRN shortness of breath or wheezing atorvastatin 40 mg tablet 40 mg PO DAILY 08/02/23 06/07/25 History ferrous sulfate 325 mg (65 mg 325 mg PO DAILY 08/02/23 06/08/25 History iron) tablet (FeroSul) losartan 25 mg tablet 25 mg PO DAILY 08/02/23 06/08/25 History fluticasone propionate 50 2 spray intranasal DAILY #16 grams 12/02/23 06/07/25 Rx mcg/actuation nasal spray,suspension (Flonase Allergy Relief) buspirone 15 mg tablet 15 mg PO TID 04/08/24 06/08/25 History acetaminophen 500 mg capsule 500 mg PO Q6H PRN fever or pain 06/08/25 05/30/25 History amlodipine 10 mg tablet 10 mg PO DAILY 06/08/25 06/08/25 History baclofen 10 mg tablet 10 mg PO TID 06/08/25 06/08/25 History cefdinir 300 mg capsule 300 mg PO BID #8 caps 06/08/25 Unknown Rx divalproex 125 mg tablet,delayed 125 mg PO BID 06/08/25 06/08/25 History release fluticasone fur. 100 mcg-umeclid 1 ea inhalation DAILY 06/08/25 06/07/25 History 62.5 mcg-vilant 25 mcg inhalat.powder (Trelegy Ellipta) loratadine 10 mg capsule (Allergy 10 mg PO DAILY ALLERGIES 06/08/25 06/08/25 History Relief (loratadine)) prednisone 20 mg tablet 40 mg (2 x 20 mg) PO DAILY #8 tabs 06/08/25 Unknown Rx pregabalin 50 mg capsule 50 mg PO BID 06/08/25 06/08/25 History trazodone 100 mg tablet 100 mg PO QHS 06/08/25 06/07/25 History Allergy/AdvReac Type Severity Reaction Status Date / Time azithromycin (From Zithromax Allergy Intermediate Hives Verified 06/08/25 12:02 Z-Dayo) lisinopril Allergy Intermediate Hives and Verified 06/08/25 12:02 diarrhea Sulfa (Sulfonamide Allergy Hives Verified 06/08/25 12:02 Antibiotics) Family History Mother Diabetes Heart disease Father AAA (abdominal aortic aneurysm) Heart disease Surgical History History of tracheostomy (11/07/16) 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 Social History household members: spouse Smoking Status: Former smoker how long ago did patient quit smokin years ago, 2ppd second hand exposure: Yes alcohol intake: never substance use type: does not use caffeine: No ROS ROS ED Constitutional Constitutional ED: Reports chills and fever(s) Cardiovascular Cardiovascular: Denies chest pain Respiratory/Chest Respiratory/Chest: Reports cough and dyspnea; Denies sputum Gastrointestinal Gastrointestinal: Denies abdominal pain, diarrhea or vomiting Musculoskeletal Musculoskeletal: Denies arthralgias or myalgias Neurologic Neurologic: Reports other Details: Right sided deficits with prior stroke as well as expressive aphasia Hematologic/Lymphatic Hematologic/Lymphatic: Reports easy bleeding, easy bruising and other Details: On Eliquis EXAM Physical Exam Const Vital Signs: 06/08/25 12:00 06/08/25 12:01 06/08/25 12:01 Temperature 98.3 F 98.9 F Temperature Source Oral Oral Pulse Rate 67 78 Respiratory Rate 18 16 Respiratory Effort Normal Respiratory Depth Normal Respiratory Pattern Normal Blood Pressure 127/70 H 128/76 H Blood Pressure Mean 89 93 Pulse Ox 94 98 Oxygen Delivery Method Room Air Room Air Room Air 06/08/25 14:00 06/08/25 14:01 06/08/25 14:06 Temperature 98.5 F 98.5 F Temperature Source Oral Oral Pulse Rate 68 73 Respiratory Rate 20 H 17 Respiratory Effort Respiratory Depth Respiratory Pattern Blood Pressure 130/83 H 146/94 H Blood Pressure Mean 98 111 Pulse Ox 90 92 Oxygen Delivery Method Room Air Room Air Room Air 06/08/25 15:59 Temperature Temperature Source Pulse Rate 71 Respiratory Rate 16 Respiratory Effort Respiratory Depth Respiratory Pattern Normal Blood Pressure Blood Pressure Mean Pulse Ox Oxygen Delivery Method Positive well nourished and well developed General Appearance ED: well developed and NAD HEENT Reports moist mucous membranes Neck supple and no JVD Chest Wall inspection of chest normal and palpation of chest normal Resp normal respiratory effort Auscultation: wheezes and diminished lung sounds left throughout and diffuse Cardio regular rate, regular rhythm and no murmurs GI normal to inspection, nondistended, normoactive bowel sounds and non-tender Extremity normal to inspection General Extremety ED: Negative for edema General Extremity: Negative for edema Neuro Neuro Narrative: Right-sided weakness?chronic Expressive aphasia has difficulty time answering questions but overall expresses intent when speaking Sensorium / Orientation: alert Psych mental status grossly normal Skin no rashes or lesions noted and no wounds MDM MDM MDM Narrative Medical decision making narrative: Patient is a 69-year-old male with relatively complex medical history presenting with worsening cough especially in the evenings. He wears oxygen at home at nighttime but not during the day. Upon arrival he is 94% on room air. He does have diminished breath sounds on the left is in no respiratory distress. Workup looking for pneumonia, pleural effusion, pneumothorax or fluid overload obtained to explain his symptoms. Suspicion for pulmonary emboli as he is anticoagulated on Eliquis. 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 Patient ronni hemodynamically stable in the emergency room. Lab work largely normal. EKG does not show any acute ischemic changes elicitation for ACS. Do not think he requires serial troponins. Patient is given a DuoNeb with some improvement of the emergency room. Given gentle IV fluids. Chest x-ray my review shows chronic changes no acute process. Radiology interpreted shows diffuse reticular opacities similar to prior studies favoring chronic interstitial changes however superimposed mild edema or pneumonitis cannot be excluded. Clinically does not appear fluid overloaded as BNP is normal. Presentation more consistent with COPD exacerbation or bronchitis. Will start on steroids and a course of cefdinir. Given first dose in the emergency room. Shared medical decision made with patient and . Patient would prefer to go home and trial outpatient treatment. He has home oxygen to use. Counseled him that he can increase his albuterol treatments to every 4-6 hours at home. Will continue giving Mucinex at home. Counseled that if he has any worsening symptoms he should return to the emergency room. is agreeable with this plan of care. Discussed with the next 2 days if he needs 1 to 2 L of oxygen during the day that would be okay but that should not be a long-term solution. Also discussed close outpatient follow-up with primary care. Lab Data Attestation: I reviewed the patient's lab results. Labs: Laboratory Results - last 24 hr 06/08/25 06/08/25 13:16 14:23 WBC 10.4 RBC 4.37 L Hgb 13.3 Hct 40.2 MCV 92.0 MCH 30.4 MCHC 33.1 RDW Std Deviation 46.3 H RDW Coeff of Makayla 13.6 Plt Count 272 MPV 11.1 Immature Gran % (Auto) 1.800 H Neut % (Auto) 61.3 Lymph % (Auto) 18.2 L Marion % (Auto) 12.0 H Eos % (Auto) 5.7 H Baso % (Auto) 1.0 Absolute Neuts (auto) 6.4 Absolute Lymphs (auto) 1.89 Nucleated RBC % 0 Sodium 141 Potassium 4.6 Chloride 106 Carbon Dioxide 26.3 Anion Gap 9 BUN 13 Creatinine 0.99 Estim Creat Clear Calc 79.85 Est GFR (MDRD) Non-Af 82 BUN/Creatinine Ratio 12.6 Glucose 73 Lactic Acid 1.6 Calcium 8.9 NT pro BNP II 797 Radiography Diagnostic Testing: Clinical Impression(s) from Imaging Studies Chest X-Ray 06/08/25 15:00 IMPRESSION: Pulmonary findings as above. Reading Location: [facility] Rhythm Strip Rhythm Strip: A-fib Rate: 81 Ectopy: None EKG Initial EKG: Attestation: I personally reviewed and interpreted this EKG as follows: Interpretation: Atrial Fibrillation Comments: Atrial fibrillation at a rate of 81 bpm Left axis deviation Nonspecific ST changes are suspected more secondary to artifact No significant change compared to prior EKG otherwise Prior EKG tracings: available for review Prior: Unchanged Discharge Plan Triage Chief Complaint: Cough ED Provider: Supriya Domingo Dx/Rx/DC Orders Clinical Impression: Asthma exacerbation in COPD, Acute viral syndrome Instructions: ED COPD Flare Prescriptions: New prednisone 20 mg tablet 40 mg PO DAILY Qty: 8 0RF cefdinir 300 mg capsule 300 mg PO BID Qty: 8 0RF No Action Complete Multivitamin tablet 1 tab PO DAILY potassium chloride 10 mEq tablet extended release 20 meq PO TID Qty: 90 12RF albuterol sulfate [Ventolin HFA] 90 mcg/actuation HFA aerosol inhaler 2 inh inhalation Q4H PRN (Reason: shortness of breath or wheezing) Qty: 18 6RF famotidine 20 MG tablet 20 mg PO DAILY Patient Comments: reduce acid ezetimibe 10 mg tablet 10 mg PO DAILY Patient Comments: TAKE 1 TABLET BY MOUTH ONCE DAILY escitalopram oxalate 20 mg Tablet 20 mg PO DAILY menthol-zinc oxide [Calmoseptine] 0.44-20.6 % Ointment 1 applic topical TID PRN (Reason: Diaper Rash) Qty: 0 0RF Protocol: *Topical Application Instructions APPLICATION INSTRUCTIONS: scrotum/luci-rectal area prn amiodarone 100 mg tablet 100 mg PO DAILY Patient Comments: TAKE 1 TABLET BY MOUTH ONCE DAILY. DO NOT TAKE IF HEART RATE IS LESS THAN 40. miconazole nitrate 2 % Cream 1 applic topical BID 14 Days Qty: 15 0RF Protocol: *Topical Application Instructions APPLICATION INSTRUCTIONS: Apply to erythema on glans of penis BID Eliquis 5 mg tablet 5 mg PO BID Patient Comments: TAKE ONE (1) TABLET BY MOUTH TWICE DAILY albuterol sulfate 2.5 mg /3 mL (0.083 %) solution for nebulization 2.5 mg continuous nebulization Q6H PRN (Reason: shortness of breath or wheezing) Patient Comments: INHALE 1 VIAL VIA NEBULIZER EVERY 4 HOURS NEEDED FOR WHEEZING OR SHORTNESS OF BREATH *USE OVER 5-15 MINUTES* ferrous sulfate [FeroSul] 325 mg (65 mg iron) tablet 325 mg PO DAILY Patient Comments: take 1 tablet by mouth once daily losartan 25 mg tablet 25 mg PO DAILY Patient Comments: take 1 tablet by mouth once daily atorvastatin 40 mg tablet 40 mg PO DAILY Patient Comments: TAKE 1 TABLET BY MOUTH ONCE DAILY buspirone 15 mg tablet 15 mg PO TID baclofen 10 MG tablet 10 mg PO TID Patient Comments: muscle relaxant Trelegy Ellipta 100-62.5-25 mcg blister with device 1 ea INHALATION DAILY acetaminophen 500 mg capsule 500 mg PO Q6H PRN (Reason: fever or pain) trazodone 100 mg tablet 100 mg PO QHS amlodipine 10 mg tablet 10 mg PO DAILY divalproex 125 mg tablet,delayed release (DR/EC) 125 mg PO BID Allergy Relief (loratadine) 10 mg capsule 10 mg PO DAILY pregabalin 50 mg capsule 50 mg PO BID fluticasone propionate [Flonase Allergy Relief] 50 mcg/actuation spray,suspension 2 spray INTRANASAL DAILY Qty: 16 6RF Primary Care Provider: Conrad Arroyo Referrals: Conrad Arroyo MD [Primary Care Provider, Family Practice] Activity Restrictions/Additional Instructions: Please follow-up with your family doctor later this week for repeat evaluation. Your chest x-ray and blood work largely reassuring today. Your COVID flu and RSV panel were negative. You been started on antibiotics and steroids I suspect you do have a mild respiratory infection likely causing a COPD exacerbation. Give albuterol treatments every 4-6 hours at home as needed for shortness of breath and cough. Continue using Mucinex. You may give 1 to 2 L of oxygen during the day for the first 1 to 2 days if you feel that he needs it. Continue his nighttime O2. Print Language: Liberian Disposition Disposition: Home, Self Care
[2025-06-08] MEDS: 0.9% Normal Saline (1000mL) 1,000 ML 150 ML IV (14:22)
[2025-06-08 14:25] LABS: Hematocrit 40.2 % (40-54); Hemoglobin 13.3 g/dL (13.0-16.5); Immature Granulocytes Count 0.190 X10^3/uL (0.0-0.0); Mean Corp Hgb Conc 33.1 g/dL (32-36); Mean Corpuscular Volume 92.0 fL (80-94); Mean Platelet Vol. 11.1 fl (6.2-12.0); NRBC Flagged by Analyzer 0 % (0-5); Platelet Count 272 K/mm3 (150-450); RBC Distribution Width CV 13.6 % (11.6-14.6); RBC Distribution Width SD 46.3 fl (35.1-43.9); Red Blood Count 4.37 M/mm3 (4.6-6.2); White Blood Count 10.4 K/mm3 (4.4-11.0)
--- NOTE | 2025-06-08 15:00 | RAD_ITS ---
PROCEDURE: RAD/Chest PA and Lateral
[2025-06-08 15:05] LABS: Anion Gap 9 (5-15); BUN 13 mg/dL (4-19); BUN/Creat Ratio 12.6 RATIO (10-20); Calcium,Total 8.9 mg/dL (7.6-11.0); Carbon Dioxide 26.3 mmol/L (21.0-32.0); Chloride 106 mmol/L (98-108); Estimated Creatinine Clearance 79.85 ml/min (50-250); Glucose 73 mg/dL (70-99); Potassium 4.6 mmol/L (3.3-5.1); Pro- Brain NATRIURETIC PEPTIDE 797 pg/mL (<=900)
--- NOTE | 2025-06-08 19:19 | CM.ED ---
Social work SW was approached in the hallway by patient's , Eli. Eli asked to speak with SW, but SW could not at that moment due to needing to complete another situation. By the time KRISTEN was ready to talk with Eli, patient had already been discharged home. KRISTEN called Eli at [phone] (ph: [phone]) to apologize and see if SW could answer any of Eli's questions at this time. Eli stated just wondering what the process was going to look like if patient's doctor decided to keep patient overnight for observation. Eli denied having current needs, but thanked KRISTEN for calling. Kamilah Braden, THIRD HAND, PRIVATE WEALTH ADVISOR
== END 2025-06-08 16:55 | disposition home or self-care (01) ==
PROVIDERS: Emergency Provider Emergency Medicine; PCP Family Medicine; Visit Provider Emergency Medicine
DX: J44.1 Chronic obstructive pulmonary disease with (acute) exacerbation (principal); I48.20 Chronic atrial fibrillation, unspecified; B34.9 Viral infection, unspecified; Z87.891 Personal history of nicotine dependence; I69.320 Aphasia following cerebral infarction; I10 Essential (primary) hypertension; E78.5 Hyperlipidemia, unspecified; I25.10 Atherosclerotic heart disease of native coronary artery without angina pectoris; K21.9 Gastro-esophageal reflux disease without esophagitis; Z79.899 Other long term (current) drug therapy; Z79.01 Long term (current) use of anticoagulants; R06.02 Shortness of breath
CPT/HCPCS: 71046; 80048; 83605; 83880; 85025; 87631; 93005; 94640; 96360; 96361; 99285; A4216